=== PATIENT | male | born 1970 | race Caucasian/White ===

== ENCOUNTER 2023-04-10 12:12 | Outpatient (OUT) | payer MEDICARE, OTHER, SELFPAY ==
[2023-04-10 16:16] LABS: Albumin Level 3.2 g/dL (3.4-5.0); Anion Gap 11.4; BUN Creatinine Ratio 14.3; Calcium 8.9 mg/dL (8.5-10.1); Carbon Dioxide 28.5 mmol/L (21.0-32.0); Chloride 102 mmol/L (98-107); Estimated GFR (African America 39 (>=60); Estimated GFR (Non-African Ame 32 (>=60); Glucose 428 mg/dL (74-106); Magnesium 2.1 mg/dL (1.8-2.4); Phosphorus 4.4 mg/dL (2.6-4.7); Potassium 3.9 mmol/L (3.5-5.1); Sodium 138 mmol/L (136-145); Uric Acid 6.5 mg/dL (3.5-7.2)
[2023-04-10 16:19] LABS: Creatinine Urine Random 26.44 mg/dL (20.00-300.00); Protein Creatinine Ratio Urine 17.61; Total Protein Urine Random 465.6 mg/dL (<=11.9)
[2023-04-10 17:47] LABS: Hematocrit 38.7 % (42.0-54.0); Hemoglobin 12.6 g/dL (14.0-18.0); Mean Corpuscular HGB Conc 32.6 g/dL (29.9-35.2); Mean Corpuscular Hemoglobin 29.4 pg (25.9-34.0); Mean Corpuscular Volume 90.4 fL (80.0-94.0); Mean Platelet Volume 12.6 fL (9.5-13.5); Platelet Count 214 10^3/uL (150-450); Red Blood Count 4.28 10^6/uL (4.70-6.10); Red Cell Distribution Width 14.6 % (11.0-15.0); White Blood Count 9.4 10^3/uL (4.0-11.0)
[2023-04-12 10:09] LABS: PTH, Intact 126 pg/mL (15-65)
[2023-04-12 14:09] LABS: Free Kappa Lt Chains,S 52.5 mg/L (3.3-19.4); Free Lambda Lt Chains,S 27.1 mg/L (5.7-26.3); Immunoglobulin A, Qn, Serum 149 mg/dL (90-386); Immunoglobulin G, Qn, Serum 553 mg/dL (603-1613); Immunoglobulin M, Qn, Serum 37 mg/dL (20-172); Kappa/Lambda Ratio,S 1.94 (0.26-1.65)
[2023-04-15 15:09] LABS: Immunofixation, Urine Comment: (.)
== END 2023-04-10 12:13 | disposition home or self-care (01) ==
LOC: LAB 12:18
PROVIDERS: Internal Medicine; PCP Family Medicine
DX: E11.22 Type 2 diabetes mellitus with diabetic chronic kidney disease (principal); N18.4 Chronic kidney disease, stage 4 (severe); I12.9 Hypertensive chronic kidney disease with stage 1 through stage 4 chronic kidney disease, or unspecified chronic kidney disease; D63.1 Anemia in chronic kidney disease; N25.81 Secondary hyperparathyroidism of renal origin
CPT/HCPCS: 36415; 80069; 82306; 82570; 82607; 82728; 82746; 82784; 83735; 83970; 84156; 84166; 84550; 85027; 86334; 86335

== ENCOUNTER 2023-04-15 14:12 | Emergency (ER) | payer MEDICARE, SELFPAY ==
[2023-04-15] VITALS (37 sets, daily range): BP systolic 77–156; BP diastolic 53–115; PULSE 51–88; RESP 4–22; TEMP 37.3; O2SAT 84–100; BMI 38.7
--- NOTE | 2023-04-15 14:23 | ED.CHESTPAI1 ---
HPI - Chest Pain General Chief Complaint: Chest Pain Stated Complaint: CHEST PAIN/HEADACHE/ RIGHT ARM NUMBNESS Time Seen by Provider: 04/15/23 14:18 Source: patient Mode of arrival: Wheelchair Limitations: physical limitation History of Present Illness HPI narrative: this patient came to the emergency room from his private home with complaint of headache and chest discomfort. He says each one is equally bothersome. He was just here in the hospital recently and treated for congestive heart failure. He states that he has had a heart catheterization within one year or so and that he has one small vessel that they were not able to do any intervention for. He does not have any nausea or vomiting or diaphoresis. He states he took some Tylenol at home for the headache. He is not running a fever. He's not had head trauma or injury. He does not have any focal neurological symptoms or deficits of these aware of. He did not take a nitroglycerin today. he also states that his kidney doctor recommended increasing his diuretics which she's done for several weeks. He notes that he lost a lot of weight and he does not have any swelling in his one remaining leg. Related Data Home Medications Medication Instructions Recorded Confirmed Unobtainable 04/15/23 04/15/23 Allergies Allergy/AdvReac Type Severity Reaction Status Date / Time promethazine [From Phenergan] AdvReac Mild Verified 04/15/23 14:24 Exam Narrative Exam Narrative: awake alert reasonable historian, seems anxious. Vital signs as noted are good. HEENT. Head and neck are atraumatic and normocephalic. There is no evidence of pallor or anemia. Hearing is grossly intact. I examination shows extraocular muscles intact no conjunctivitis. Chest does not show any tenderness to palpation. There is no subtendinous emphysema. Respiratory lungs are clear scattered rhonchi but no wheezing. Heart rate and rhythm are normal no S3-S4 or murmur. Gastrointestinal abdomen is obese does not have any peritoneal findings guarding rebound or rigidity. Psych cognition is normal mentation is normal maintains good eye contact and is a good historian. Constitutional Vital Signs - 24 hr 04/15/23 14:18 04/15/23 14:20 04/15/23 14:21 Temperature 99.2 F Pulse Rate 88 87 Pulse Rate [Monitor] 88 Respiratory Rate 18 15 15 Blood Pressure 105/86 H Blood Pressure [Right Arm] 106/55 L Pulse Oximetry 99 99 04/15/23 14:21 04/15/23 14:21 04/15/23 14:30 Temperature Pulse Rate 88 87 83 Pulse Rate [Monitor] Respiratory Rate 22 19 12 Blood Pressure 105/86 H 112/75 Blood Pressure [Right Arm] Pulse Oximetry 100 88 L 04/15/23 14:45 04/15/23 15:00 04/15/23 15:15 Temperature Pulse Rate 82 81 80 Pulse Rate [Monitor] Respiratory Rate 8 L 7 L 12 Blood Pressure 110/62 94/63 95/58 L Blood Pressure [Right Arm] Pulse Oximetry 84 L 92 L 93 L 04/15/23 15:30 04/15/23 15:30 04/15/23 15:45 Temperature Pulse Rate 80 79 79 Pulse Rate [Monitor] Respiratory Rate 9 L 6 L 11 L Blood Pressure 84/57 L 84/57 L 87/58 L Blood Pressure [Right Arm] Pulse Oximetry 92 L 87 L 04/15/23 16:00 04/15/23 16:15 04/15/23 16:30 Temperature Pulse Rate 79 79 80 Pulse Rate [Monitor] Respiratory Rate 14 16 15 Blood Pressure 92/64 112/64 131/72 H Blood Pressure [Right Arm] Pulse Oximetry 91 L 88 L 91 L 04/15/23 16:45 04/15/23 17:00 04/15/23 17:16 Temperature Pulse Rate 80 79 79 Pulse Rate [Monitor] Respiratory Rate 16 Blood Pressure 129/84 H 118/67 97/53 L Blood Pressure [Right Arm] Pulse Oximetry 94 L 95 Course Vital Signs Vital signs: Vital Signs Temperature 99.2 F 04/15/23 14:18 Pulse Rate 88 04/15/23 14:18 Respiratory Rate 18 04/15/23 14:18 Blood Pressure 106/55 L 04/15/23 14:18 Pulse Oximetry 99 04/15/23 14:18 Temperature 99.2 F 04/15/23 14:18 Pulse Rate 79 04/15/23 17:16 Respiratory Rate 16 04/15/23 16:45 Blood Pressure 97/53 L 04/15/23 17:16 Pulse Oximetry 95 04/15/23 17:16 MDM - Chest Pain MDM Narrative Medical decision making narrative: this patient presents with significant deterioration of his BUN/creatinine laboratory function testing over the last several days. 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 His chest x-ray did not show evidence of acute failure. His sugar today is better than it has been recently. 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 I spoke with the hospitalist in [place] and they've accepted transfer of the case. His vital signs are stable at the time of this discussion Lab Data Labs: Lab Results 04/15/23 Range/Units 14:31 WBC 9.5 (4.0-11.0) 10^3/uL RBC 4.62 L (4.70-6.10) 10^6/uL Hgb 13.7 L (14.0-18.0) g/dL Hct 40.9 L (42.0-54.0) % MCV 88.5 (80.0-94.0) fL MCH 29.7 (25.9-34.0) pg MCHC 33.5 (29.9-35.2) g/dL RDW 15.0 (11.0-15.0) % Plt Count 248 (150-450) 10^3/uL MPV 11.6 (9.5-13.5) fL Neut % (Auto) 76.1 H (43.0-75.0) % Lymph % (Auto) 13.9 L (20.5-60.0) % Motley % (Auto) 6.8 (1.7-12.0) % Eos % (Auto) 2.5 (0.9-7.0) % Baso % (Auto) 0.3 (0.2-2.0) % Neut # (Auto) 7.2 H (1.4-6.5) 10^3/uL Lymph # (Auto) 1.3 (1.2-3.8) 10^3/uL Motley # (Auto) 0.7 (0.3-0.8) 10^3/uL Eos # (Auto) 0.2 (0.0-0.7) 10^3/uL Baso # (Auto) 0.0 (0.0-0.1) 10^3/uL Abs Immat Gran (auto) 0.04 H (0.00-0.03) 10^3/uL Imm/Tot Granulo (auto) 0.4 (0.0-0.5) % Sodium 135 L (136-145) mmol/L Potassium 3.5 (3.5-5.1) mmol/L Chloride 97 L (98-107) mmol/L Carbon Dioxide 29.3 (21.0-32.0) mmol/L Anion Gap 12.2 BUN 54.0 H (7.0-18.0) mg/dL Creatinine 3.26 H (0.70-1.30) mg/dL Est GFR ( Amer) 24 L (>=60) Est GFR (Non-Af Amer) 20 L (>=60) BUN/Creatinine Ratio 16.6 Glucose 186 H (74-106) mg/dL Calcium 8.8 (8.5-10.1) mg/dL Total Bilirubin 0.5 (0.2-1.0) mg/dL AST 24 (15-37) U/L ALT 21 (16-63) U/L Alkaline Phosphatase 101 (46-116) U/L Troponin I High Sens 68.7 (4.0-76.1) pg/mL NT-Pro-B Natriuret Pep 1993.0 H* (<=900.0) pg/mL Total Protein 6.7 (6.4-8.2) g/dL Albumin 3.1 L (3.4-5.0) g/dL Globulin 3.6 g/dL Albumin/Globulin Ratio 0.9 Discharge Plan Discharge Chief Complaint: Chest Pain Clinical Impression: Acute renal failure Patient Disposition: [facility] Time of Disposition Decision: 17:29 Discharge Location: [facility] Condition: Fair Mode of Transportation: EMS
--- NOTE | 2023-04-15 14:29 | XR_ITS ---
The [address] [address] Patient Name: KURTIS CHOUDHURY MRN: [id number] date: 1970 Sex: M Assigned Patient Location: ER Current Patient Location: ER Accession/Order Number: [id number] Exam Date: 04/15/2023 14:35 Report Date: 04/15/2023 14:51 At the request of: COLLIN REINA Procedure: XR chest 1V EXAMINATION: XR chest 1V HISTORY: pain ; chest pain COMPARISON: No relevant comparison available. FINDINGS: LUNGS: No significant pulmonary parenchymal abnormalities. VASCULATURE: No increased pulmonary vasculature. PLEURA: No pneumothorax, effusion, or pleural thickening. CARDIAC: No cardiomegaly or cardiac silhouette abnormality. MEDIASTINUM: No visible mass or adenopathy. BONES: Degenerative changes of the acromioclavicular joints with undersurface osteophytes bilaterally. OTHER: Negative. IMPRESSION: 1. No acute cardiopulmonary process. 2. Prominent degenerative changes of the acromioclavicular joints bilaterally which would predispose to rotator cuff injury. Electronically authenticated by: MURRAY YEBOAH Date: 04/15/2023 14:51
--- NOTE | 2023-04-15 14:29 | ECG_ITS ---
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
[2023-04-15 14:41] LABS: Basophils Percent Auto 0.3 % (0.2-2.0); Eosinophils Absolute Auto 0.2 10^3/uL (0.0-0.7); Eosinophils Percent Auto 2.5 % (0.9-7.0); Hematocrit 40.9 % (42.0-54.0); Hemoglobin 13.7 g/dL (14.0-18.0); Immature Granulocytes Abs Auto 0.04 10^3/uL (0.00-0.03); Immature Granulocytes Pct Auto 0.4 % (0.0-0.5); Lymphocytes Absolute Auto 1.3 10^3/uL (1.2-3.8); Lymphocytes Percent Auto 13.9 % (20.5-60.0); Mean Corpuscular HGB Conc 33.5 g/dL (29.9-35.2); Mean Corpuscular Hemoglobin 29.7 pg (25.9-34.0); Mean Corpuscular Volume 88.5 fL (80.0-94.0); Mean Platelet Volume 11.6 fL (9.5-13.5); Monocytes Absolute Auto 0.7 10^3/uL (0.3-0.8); Monocytes Percent Auto 6.8 % (1.7-12.0); Neutrophils Absolute Auto 7.2 10^3/uL (1.4-6.5); Neutrophils Percent Auto 76.1 % (43.0-75.0); Platelet Count 248 10^3/uL (150-450); Red Blood Count 4.62 10^6/uL (4.70-6.10); White Blood Count 9.5 10^3/uL (4.0-11.0)
[2023-04-15] MEDS: MORPHINE SULFATE 2 MG/ML SYRINGE IV (14:47)
[2023-04-15 14:58] LABS: Alanine Aminotransferase 21 U/L (16-63); Albumin Globulin Ratio 0.9; Albumin Level 3.1 g/dL (3.4-5.0); Alkaline Phosphatase 101 U/L (46-116); Anion Gap 12.2; Aspartate Amino Transferase 24 U/L (15-37); BUN Creatinine Ratio 16.6; Bilirubin Total 0.5 mg/dL (0.2-1.0); Calcium 8.8 mg/dL (8.5-10.1); Carbon Dioxide 29.3 mmol/L (21.0-32.0); Chloride 97 mmol/L (98-107); Estimated GFR (African America 24 (>=60); Estimated GFR (Non-African Ame 20 (>=60); Globulin 3.6 g/dL; Glucose 186 mg/dL (74-106); Potassium 3.5 mmol/L (3.5-5.1); Sodium 135 mmol/L (136-145); Total Protein 6.7 g/dL (6.4-8.2)
[2023-04-15 15:04] LABS: Troponin I High Sensitivity 68.7 pg/mL (4.0-76.1)
[2023-04-15 18:37] LABS: Troponin I High Sensitivity 60.6 pg/mL (4.0-76.1)
[2023-04-15] MEDS: 0.9 % SODIUM CHLORIDE 500 ML 100 ML IV (18:50)
[2023-04-15] MEDS: ONDANSETRON PF 4 MG/2 ML VIAL IV (20:02)
[2023-04-15] MEDS: ALPRAZOLAM 0.5 MG TABLET PO (20:02)
== END 2023-04-15 21:52 | disposition short-term general hospital (02) ==
PROVIDERS: Emergency Provider Emergency Medicine Emergency Medical Services; PCP Family Medicine
DX: N17.9 Acute kidney failure, unspecified (principal); I50.9 Heart failure, unspecified; E66.9 Obesity, unspecified; Z68.38 Body mass index [BMI] 38.0-38.9, adult
CPT/HCPCS: 36415; 71045; 80053; 83880; 84484; 85025; 93005; 96374; 96375; 99285

== ENCOUNTER 2023-05-21 16:06 | Emergency (ER) | payer MEDICARE, SELFPAY ==
[2023-05-21 16:10] VITALS: BP 142/90; PULSE 79; RESP 20; TEMP 37.2; O2SAT 96; BMI 40.4
--- NOTE | 2023-05-21 16:19 | XR_ITS ---
The [address] [address] Patient Name: KURTIS CHOUDHURY MRN: [id number] date: 1970 Sex: M Assigned Patient Location: ER Current Patient Location: ER Accession/Order Number: [id number] Exam Date: 05/21/2023 16:45 Report Date: 05/21/2023 17:14 At the request of: NOEL RODRIGUEZ Procedure: XR lumbar spine 2-3V EXAM: XR lumbar spine 2-3V HISTORY: Back pain after stepping firewood COMPARISON: None. TECHNIQUE: 2 views FINDINGS: Maintenance of the normal lumbar lordosis.. Vertebral body heights and alignments exhibit no fracture or listhesis. Age-related intervertebral disc space narrowing, endplate and facet arthrosis. Sacroiliac joints are unremarkable for patient's age. XR/XR lumbar spine 2-3V IMPRESSION: No visualized acute abnormality. Electronically authenticated by: CONSTANTIN VERA Date: 05/21/2023 17:14
--- NOTE | 2023-05-21 16:24 | ED.BACK1 ---
HPI - Back Pain/Injury General Chief Complaint: Back Pain/Injury Stated Complaint: BACK PAIN Time Seen by Provider: 05/21/23 16:12 Source: patient Mode of arrival: Wheelchair History of Present Illness HPI Narrative: patient is a 52-year-old male who presents to the emergency department with his for the evaluation of low back pain after lifting firewood four days ago at home. Patient states he has had pain across the low back that is worse with walking. 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 He has had no urinary symptoms or incontinence. No medications prior to arrival. He denies any falls or direct injury to the low back. Related Data Home Medications Medication Instructions Recorded Confirmed amlodipine 10 mg tablet 10 mg PO QDAY 04/15/23 04/15/23 bumetanide 1 mg tablet 1 mg PO QDAY 04/15/23 04/15/23 losartan 100 mg tablet 100 mg PO QDAY 04/15/23 04/15/23 metolazone 2.5 mg tablet 2.5 mg PO .3 times week 04/15/23 04/15/23 Previous Rx's Medication Instructions Recorded hydrocodone 5 mg-acetaminophen 325 1 tab PO Q6H PRN pain #8 tabs 05/21/23 mg tablet methocarbamol 750 mg tablet 750 mg PO TID PRN pain #20 tabs 05/21/23 Allergies Allergy/AdvReac Type Severity Reaction Status Date / Time promethazine [From Phenergan] AdvReac Mild Verified 05/21/23 16:15 Review of Systems ROS Constitutional Denies: fever or chills Ears, nose, mouth, and throat Denies: throat pain Cardiovascular Denies: chest pain Respiratory Denies: shortness of breath or cough Gastrointestinal Denies: abdominal pain, nausea or vomiting Genitourinary Denies: painful urination Musculoskeletal Reports: back pain; Denies: neck pain or extremity pain Integumentary/Breast Denies: rash Hematologic/Lymphatic Denies: easy bruising Exam Narrative Exam Narrative: Gen.: Awake, alert, in no distress Head: Normocephalic, atraumatic ENT: Moist mucous membranes Respiratory: No respiratory distress Back: minimal diffuse tenderness of the lumbar spine with moderate tenderness of the left paraspinal muscles of the lumbar spine, no CVA tenderness. mild tenderness of the paraspinal muscles of the right lumbar spine. Extremities: right [id number] amputation with prosthetic in place. Normal dorsiflexion and plantarflexion of the left lower extremity, no decrease in sensation to the left medial thigh Psych: Normal mood and affect Neuro: No focal neuro deficit Skin: Warm, dry, intact Constitutional Vital Signs, click to edit/add: Last Vital Signs Temp 99.0 F 05/21/23 16:10 Pulse 79 05/21/23 16:10 Resp 20 05/21/23 16:10 BP 142/90 H 05/21/23 16:10 Pulse Ox 96 05/21/23 16:10 Course Vital Signs Vital signs: Vital Signs Temperature 99.0 F 05/21/23 16:10 Pulse Rate 79 05/21/23 16:10 Respiratory Rate 20 05/21/23 16:10 Blood Pressure 142/90 H 05/21/23 16:10 Pulse Oximetry 96 05/21/23 16:10 Temperature 99.0 F 05/21/23 16:10 Pulse Rate 79 05/21/23 16:10 Respiratory Rate 20 05/21/23 16:10 Blood Pressure 142/90 H 05/21/23 16:10 Pulse Oximetry 96 05/21/23 16:10 MDM - Back Pain/Injury MDM Narrative Medical decision making narrative: x-rays with no evidence of acute process. Patient treated in the Emergency Room with pain medication and muscle relaxants and will be discharged home with the same. He is neurovascularly intact, no focal neuro deficit at this time. Medical Records Attestation: I reviewed the patient's medical records. Imaging Data xr lumbar spine: Attestation: I have reviewed the pertinent imaging results. Radiologist's impression: Procedure: XR lumbar spine 2-3V EXAM: XR lumbar spine 2-3V HISTORY: Back pain after stepping firewood COMPARISON: None. TECHNIQUE: 2 views FINDINGS: Maintenance of the normal lumbar lordosis.. Vertebral body heights and alignments exhibit no fracture or listhesis. Age-related intervertebral disc space narrowing, endplate and facet arthrosis. Sacroiliac joints are unremarkable for patient's age. IMPRESSION: No visualized acute abnormality. Electronically authenticated by: CONSTANTIN VERA Date: 05/21/2023 17:14 Discharge Plan Discharge Chief Complaint: Back Pain/Injury Clinical Impression: Strain of lumbar region Patient Disposition: Home, Self-Care Time of Disposition Decision: 17:34 Condition: Good Prescriptions / Home Meds: New hydrocodone-acetaminophen 5-325 mg tablet 1 tab PO Q6H PRN (Reason: pain) Qty: 8 0RF Rx Instructions: DX: M54.5 methocarbamol 750 mg tablet 750 mg PO TID PRN (Reason: pain) Qty: 20 0RF No Action bumetanide 1 mg tablet 1 mg PO QDAY metolazone 2.5 mg tablet 2.5 mg PO .3 times week Rx Instructions: Take 1 tablet by mouth 3 times a week, Saturday, Saturday, and Saturday amlodipine 10 mg tablet 10 mg PO QDAY losartan 100 mg tablet 100 mg PO QDAY Instructions: Low Back Strain (ED), Back Pain (ED) Stand Alone Forms: Portal Instructions Referrals: DONITA TENORIO [Primary Care Provider] - 1 week
[2023-05-21] MEDS: HYDROCODONE/ACETAMINOPHEN 5-325 MG TABLET 1 TAB PO (16:36)
[2023-05-21] MEDS: ORPHENADRINE 60 MG/ 2 ML VIAL IM (16:36)
== END 2023-05-21 17:52 | disposition home or self-care (01) ==
PROVIDERS: Emergency Provider Emergency Medicine; PCP Family Medicine
DX: S39.012A Strain of muscle, fascia and tendon of lower back, initial encounter (principal); X50.9XXA Other and unspecified overexertion or strenuous movements or postures, initial encounter; Z89.611 Acquired absence of right leg above knee; Z79.899 Other long term (current) drug therapy; G62.9 Polyneuropathy, unspecified
CPT/HCPCS: 72100; 96372; 99284

== ENCOUNTER 2023-09-20 08:57 | Outpatient (OUT) | payer MEDICARE, SELFPAY ==
--- NOTE | 2023-09-20 | XR_ITS ---
The [address] [address] Patient Name: KURTIS CHOUDHURY MRN: [id number] date: 1970 Sex: M Assigned Patient Location: Current Patient Location: Accession/Order Number: [id number] Exam Date: 09/20/2023 09:04 Report Date: 09/20/2023 09:54 At the request of: CLIVE RICO Procedure: XR foot LT min 3V PROCEDURE: XR foot LT min 3V COMPARISON: 03/06/21 HISTORY: LEFT FOOT PAIN FINDINGS: BONES:No fracture, acute abnormality, or significant arthropathy.Mild calcaneal enthesopathic spurring SOFT TISSUES:Negative. No visible soft tissue swelling. EFFUSION:None visible. OTHER: Negative. XR/XR foot LT min 3V IMPRESSION: Mild degenerative changes Electronically authenticated by: CONSTANTIN FLORES Date: 09/20/2023 09:54
== END 2023-09-20 08:58 | disposition home or self-care (01) ==
LOC: WC 08:57
PROVIDERS: PCP Family Medicine; Visit Provider Podiatrist Foot & Ankle Surgery
DX: E11.621 Type 2 diabetes mellitus with foot ulcer (principal); L97.422 Non-pressure chronic ulcer of left heel and midfoot with fat layer exposed
CPT/HCPCS: 11042; 73630; G0463

== ENCOUNTER 2023-10-23 13:24 | Outpatient (OUT) | payer MEDICARE, SELFPAY ==
--- OUTSIDE RECORDS SUMMARY | 2023-10-23 13:38 | XMS_ITS | CCD ---
Author Name Unknown Address [address] [place] [address] Organization [facility] Care Team Providers Care Tripe Cooker Name Role Phone Fatoumata Tirado Admitting Unavailable Fatoumata Tirado Attending Unavailable Fatoumata Tirado H. Referring Unavailable Fadi Tenorio Primary Care Unavailable Fatoumata Tirado HCirilo Admitting Unavailable Fatoumata Tirado Attending Unavailable Fatoumata Tirado H. Referring Unavailable House, Fadi Primary Care Unavailable House, Sr Fadi Neves Primary Care Provider HOUSE, SR FADI Neves Primary Care Unavailable PHUC, LLEOWELL Consulting Unavailable CHATHA, KAISER Admitting Unavailable CHATHA, KAISER Attending Unavailable ABBUD, KASHMIR A Consulting Unavailable PHUC, LLEOWELL Referring Unavailable HOUSE, SR FADI Neves Primary Care Unavailable PHUC, LLEOWELL Referring Unavailable HOUSE, SR FADI Neves Primary Care Unavailable PHUC, LLEOWELL Admitting Unavailable PHUC, LLEOWELL Attending Unavailable Coby, DO Fadi Primary Care Provider DO Mario Phillips Emergency Provider MD Jonn Wallace Admit Provider MD Jonn Wallace Attending Provider [phone] DO Fadi Tenorio Primary Care Provider DO Mario Phillips Emergency Provider MD Jonn Wallace Admit Provider MD Jonn Wallace Attending Provider [phone] TANYA Mittal Other Provider Unavailable DO Leann Sarmiento Other Provider MD Madeline Valdez Other Provider MD Jaylen Brooks Other Provider MD Eduin Johnson Other Provider MD Fadi Howard Other Provider HUMBERTO Terrazas Other Provider MD Leticia Da Silva Other Provider MD Manuel Strong Other Provider MD Malik Hernandez Other Provider Fadi Tenorio Unavailable Unavailable Unavailable TANYA Mittal Other Provider Unavailable DO Leann Sarmiento Other Provider MD Madeline Valdez Other Provider MD Jaylen Brooks Other Provider MD Eduin Johnson Other Provider MD Fadi Howard Other Provider HUMBERTO Terrazas Other Provider MD Leticia Da Silva Other Provider MD Manuel Strong Other Provider MD Malik Hernandez Other Provider HUMBERTO Das Attending Provider Shahla FLAHERTY, Rober Unavailable Bulmaro FLAHERTY, Raul Unavailable Agustin Hampton MD Unavailable Unavailable Unavailable Hunter Plaza Unavailable Mika Das Unavailable Nury Martin Unavailable Yovany, Agus Unavailable Jazzmine Dukes Unavailable DO Fadi Tenorio Primary Care Provider HUMBERTO Dasmaria teresa Baez Attending Provider Elayne DO Sinan Wilkes Emergency Provider Unavailable Primary Care Provider UnavailVJ Gomez II Attending Unavaildixon Lopes MD, Rober Unavailable Bulmaro FLAHERTY, Raul Unavailable Berta FLAHERTY, Agustin Unavailable Vivian FLAHERTY, Demetri Unavailable Shahla FLAHERTY, Rober Unavailable Bulmaro FLAHERTY, Raul Unavailable Berta FLAHERTY, Agustin Unavailable Vivian FLAHERTY, Demetri Unavailable [phone] Vivian FLAHERTY, Demetri Unavailable Unavailable Unavailable DR MURRAY YEBOAH Consulting Unavailable RODERICK ., ALDO Admitting Unavailable RODERICK ., ALDO Attending Unavailable [place], DR DUCKWORTH Primary Care Unavailable SERA ., DR SHERMAN Consulting Unavailable FAWWAD, SHAIKH Amada Consulting Unavailable DANDY, ANIBAL Consulting Unavailable LAZ, LOTTIE Consulting Unavailable SISTER, JESSICA Consulting Unavailable RODERICK ., ALDO Consulting Unavailable NEWATIA, SAMANTHA Consulting Unavailable BARAZI, TONY Consulting Unavailable FEIDERJUAN LUIS Consulting Unavailable COBY, DR DUCKWORTH Primary Care Unavailable [place], DR DUCKWORTH Admitting Unavailable HOUSE, DR DUCKWORTH Attending Unavailable [place], DR DUCKWORTH Consulting Unavailable COBY, DR DUCKWORTH Primary Care Unavailable NBA COBOS Admitting Unavailable NBA COBOS Attending Unavailable JENNIFER ., FÁTIMA COHEN Consulting UnavailLISA Matute Consulting Unavailable CLIVE HOLLAND Consulting Unavailable COBY, DR DUCKWORTH Primary Care Unavailable GRAY, DR KEVON Anderson Attending Unavailable GRAY, DR KEVON Anderson Consulting Unavailable GRAY, DR KEVON Anderson Admitting Unavailable JENNIFER ., FÁTIMA COHEN Consulting UnavailNBA Spears Consulting Unavailable SHRUTI HANCOCK Consulting Unavailable CHULA MALHOTRA Consulting Unavailable Eliud Prado Unavailable DO Fadi Tenorio Primary Care Provider [phone] DO Kameron Dos Santos Attending Provider DO Albert Woods Admit Provider MD [employer] Other Provider Vivian FLAHERTY, Demetri Unavailable DO Christopher Santiago Emergency Provider None, DO Doctor Primary Care Provider UnavailDO Chava Veras Attending Provider MD Helen Jovel Admit Provider [phone] MD Helen Jovel Attending Provider MD Radha Bell Other Provider [phone] MD Kan Granger Other Provider MD Jose Maria Lopez Other Provider MD Geovani Hebert Other Provider MD Elvin Lyles Other Provider DO Manda Scott Other Provider [phone] MD Marcelino Abel Other Provider MD Steve Block Other Provider MD Agus Morrison Other Provider MD Harjeet Ruelas Attending Provider [phone] Marcelino Abel Attending Unavailable Radha Bell Consulting Unavailable Helen Jovel Admitting Unavailable Kan Granger Consulting Unavailable Jose Maria Lopez Consulting Unavailable Geovani Hebert Consulting Unavailable Elvin Lyles Consulting Unavailable Manda Scott Consulting Unavailable Marcelino Abel Consulting Unavailable Steve Block Consulting Unavailable Agus Morrison Consulting Unavailable Helen Jovel Consulting Unavailable Chava Hernandez Attending Unavailable Radha Bell Consulting Unavailable Parsi, Harjeet Attending Unavailable Parsi, Harjeet Admitting Unavailable Kan Granger Consulting Unavailable NorJose Maria camacho Consulting Unavailable Hebert, Geovani Consulting Unavailable Elvin Lyles Consulting Unavailable Manda Scott Consulting Unavailable ParacMarcelino powell Consulting Unavailable Steve Block Consulting Unavailable Agus Morrison Consulting Unavailable Marina Solis Attending Unavailable Parsi, Harjeet Consulting Unavailable Parsi, Harjeet Admitting Unavailable FADI TENORIO Primary Care Unavailable COBY, FADI Neves Primary Care Unavailable Reim Iyer MD Attending Unavailable COBY, FADI Neves Primary Care Unavailable Remi Iyer MD Attending Unavailable PROVIDER, UNKNOWN Attending Unavailable PROVIDER, UNKNOWN Admitting Unavailable PROVIDER, UNKNOWN Admitting Unavailable PROVIDER, UNKNOWN Attending Unavailable PATIENT, SELF Referring Unavailable PROVIDER, UNKNOWN Attending Unavailable PROVIDER, UNKNOWN Admitting Unavailable PROVIDER, UNKNOWN Attending Unavailable PROVIDER, UNKNOWN Admitting Unavailable PROVIDER, UNKNOWN Attending Unavailable PROVIDER, UNKNOWN Admitting Unavailable Fadi Tenorio Primary Care Unavailable Mika Das Admitting Unavailable Mika Das Attending Unavailable Fadi Tenorio Primary Care Unavailable [employer] Consulting Unavailable Kameron Dos Santos Attending Unavailable Albert Woods Admitting Unavailable Allergies Allergy Classification Reported Allergen(s) Allergy Type Date of Onset Reaction(s) Facility (2 sources) Promethazine; Translations: [Phenergan] Drug Allergy 6 [facility] Repository (20 sources) Promethazine; Translations: [promethazine] Drug Allergy 6 Other: See Comments [employer] Phone: (2 sources) Promethazine Drug Allergy 2 [facility] Repository Medications Current Medications Medication Drug Class(es) Dates Sig (Normalized) Sig (Original) acetaminophen 325 mg / oxyCODONE hydrochloride 5 mg oral tablet (20 sources) Opioid Agonist Start: 12-29-2020 End: 12-29-2020 oxyCODONE-acetamin ophen (PERCOCET) 5-325 MG per tablet 1 tablet Start: 10-08-2020 take 1 tablet by jacobo th every six hours for pain oxyCODONE-acetaminophen (PERCOCET) 5-325 mg per tablet take 1 tablet by mouth every 6 hours if needed for pain FOR UP TO 7 DAYS 0 10/08/2020 Active [id number] 200 actuat albuterol 0.09 mg/actuat metered dose inhaler (20 sources) beta2-Adrenergic Agonist Start: 08-02-2023 take 1 puff(s) by inhalation every four hours Albuterol Sulfate Active 2 PUFF INHALATION Q4H August 02, 2023 12:00am Start: 04-15-2023 End: 04-17-2023 take 1 puff(s) by inhalation every four hours Albuterol Sulfate Discontinued 2 PUFF INHALATION Q4H April 15, 2023 12:00am April 17, 2023 2:35pm Start: 12-18-2019 End: 01-27-2021 albuterol (PROVENTIL) (2.5 M G/3ML) 0.083% nebulizer solution Albuterol Albuterol Sulfate Active 2.5 MG Inhalation Q4H 15 December 24, 2019 10:24am 12-24-2019 [facility] ([id number]) 0 12/24/2019 Active Start: 12-18-2019 End: 01-27-2021 take 1 puff(s) by inhalation every four hours Albuterol Sulfate (Ventolin Hfa) 90 mcg/actuation Hfa Aerosol Inhaler Discontinued 2 PUFF INHALATION Every 4 hours December 24, 2019 12:00am January 27, 2021 1:52pm take 2 puff(s) by in halation every four hours as needed Albuterol Sulfate HFA 108 (90 Base) MCG/ACT 2 puff as needed Inhalation every 4 hrs Active take 2 puff(s) by in halation every four hours as needed Albuterol Sulfate HFA 108 (90 Base) MCG/ACT 2 puff as needed Inhalation every 4 hrs Active take 2 puff(s) by in halation every four hours as needed Albuterol Sulfate HFA 108 (90 Base) MCG/ACT 2 puff as needed Inhalation every 4 hrs Active Albuterol Sulfat e HFA 108 (90 Base) MCG/ACT as directed by mouth every 4 hours as needed Active take 2 puff(s) by in halation every four hours as needed Ventolin HFA 108 (90 Base) MCG/ACT 2 puffs as needed Inhalation every 4 hrs Active amLODIPine 10 mg oral tablet (20 sources) Dihydropyridine Calcium Channel Dale Start: 07-03-2023 take 10 mg by mouth once daily Amlodipine Active 10 MG PO Daily April 15, 2023 12:00am Start: 02-23-2020 take 1 tablet by jacobo th once daily amLODIPine (NORVASC) 2.5 MG tablet TK 1 T PO QD 0 02/23/2020 Active Start: 12-24-2019 End: 01-27-2021 take 2.5 mg by mouth once daily Amlodipine Discontinue d 2.5 MG PO Daily December 24, 2019 10:24am January 27, 2021 1:52pm take 1 tablet by jacobo th every twenty-four hours amLODIPine Besylate 5 MG 1 tablet Orally Once a day Active amoxicillin 875 mg / clavulanate 125 mg oral tablet (14 sources) Penicillin-class Antibacterial Start: 10-01-2020 take 1 tablet by mouth twice daily amoxicillin-clavulanate (AUGMENTIN) 875-125 MG per tablet take 1 tablet by mouth twice a day for 14 days 0 10/01/2020 Active ascorbic acid 500 mg oral tablet (20 sources) Vitamin C Start: 08-02-2023 take 500 mg by mouth once daily Ascorbic Acid (Vitamin C) Active 500 MG ORAL DAILY August 02, 2023 12:00am Start: 01-27-2021 take 2 tablets by mo ut once daily vitamin C (ASCORBIC ACID) 500 MG tablet Indications: Proliferative diabetic retinopathy of both eyes associated with type 2 diabetes mellitus, unspecified proliferative retinopathy type (HCC) , Vitreous hemorrhage of left eye (HCC) Take 500 mg by mouth daily. 0 01/27/2021 Active Start: 01-27-2021 take 2 tablets by mo uth once daily vitamin C (ASCORBIC ACID) 500 MG tablet Indications: Proliferative diabetic retinopathy of both eyes associated with type 2 diabetes mellitus, unspecified proliferative retinopathy type (HCC) , Vitreous hemorrhage of left eye (HCC) Take 500 mg by mouth daily. 0 01/27/2021 Active Start: 01-27-2021 End: 04-15-2023 take 1 tablet by mouth once daily Ascorbic Acid (Vitamin C) (Vitamin C) 500 mg Tablet Discontinued 500 MG PO Daily August 14, 2021 12:00am April 15, 2023 11:07pm Vitamin C 500 MG Oral Capsule TAKE 1 CAPSULE Quantity: 0 Refills: 0 Ordered: 17-Jan-2022 DO Active aspirin 81 mg delayed release oral tablet (20 sources) Platelet Aggregation Inhibitor, Nonsteroidal Anti-inflammatory Drug Start: 08-02-2023 take 81 mg by mouth once daily Aspirin Active 81 MG ORAL DAILY August 02, 2023 12:00am Start: 01-27-2021 End: 04-15-2023 take 1 tablet by mouth once daily Aspirin (Children's Aspirin) 81 mg Tablet,Chewable Discontinued 81 MG PO Daily August 14, 2021 12:00am April 15, 2023 11:08pm Start: 12-30-2020 take 1 tablet by jacobo th once daily aspirin 81 MG chewable tablet Take 1 tablet by mouth daily 30 tablet 3 12/30/2020 Active Start: 12-29-2020 aspirin chewab le tablet 81 mg Start: 12-18-2019 End: 01-27-2021 take 81 mg by mouth once daily Aspirin Discontinued 81 MG PO Daily December 24, 2019 12:00am January 27, 2021 1:52pm take 1 tablet by jacobo th once daily Aspirin 81 MG 1 tablet Orally Once a day Active End: 12-29-2020 take 1 tablet by mouth once daily aspirin 325 MG tablet Take 325 mg by mouth daily 0 12/29/2020 Discontinued (Stop Taking at Discharge) atenolol 50 mg oral tablet (19 sources) beta-Adrenergic Dale Start: 12-28-2018 End: 12-24-2019 atenolol (TENORMIN) 50 mg tablet Take 50 mg by mouth. 0 12/28/2018 Active atorvastatin 80 mg oral tablet (20 sources) HMG-CoA Reductase Inhibitor Start: 08-02-2023 take 80 mg by mouth in the evening Atorvastatin Active 80 MG ORAL In the EVENING August 02, 2023 12:00am Start: 01-12-2022 End: 04-15-2023 take 80 mg by mouth once daily in the evening Atorvastatin Active 80 MG PO Every evening April 15, 2023 11:19pm Start: 01-27-2021 End: 01-12-2022 take 40 mg by mouth once daily in the evening Atorvastatin Discontinued 40 MG PO Every evening August 14, 2021 12:00am January 12, 2022 3:25pm Start: 12-29-2020 take 40 mg by mouth once daily 40 mg, Oral, NIGHTLY, First dose on Lore 12/29/20 at 2100 Start: 12-18-2019 End: 01-27-2021 atorvastatin (LIPITOR) 40 mg tablet benzonatate 100 mg oral capsule (2 sources) Non-narcotic Antitussive take 1 capsule by mouth every eight hours Benzonatate 100 MG 1 capsule as needed Orally Three times a day Active bisacodyl 10 mg rectal suppository (14 sources) Stimulant Laxative bisacodyl (Dulcolax) 10 MG suppository Dulcolax (bisacodyl) 10 mg rectal suppository Insert 1 suppository every day by rectal route. 0 Active bumetanide 2 mg oral tablet (20 sources) Loop Diuretic Start: take 2 mg by mouth twice daily before mealtime Bumetanide Active 2 MG ORAL Twice Daily Before Meals August 02, 2023 12:00am Start: 08-14-2021 End: 04-15-2023 take 1 mg by mouth twice daily Bumetanide Active 1 MG PO Twice daily April 15, 2023 11:19pm take 1 tablet by jacobo th once daily Bumetanide 1 MG Oral Tablet TAKE 1 TABLET DAILY. Quantity: 90 Refills: 3 Ordered: 07-Mar-2022 Cordell Rodriguez APRN-Aicha OVALLE Active 24 hr buPROPion hydrochloride 150 mg extended release oral tablet (20 sources) Aminoketone Start: 10-23-2020 take 1 tablet by mouth once daily in the morning buPROPion ER (WELLBUTRIN XL) 150 MG XL tablet TAKE 1 TABLET BY MOUTH EVERY DAY IN THE MORNING 0 10/23/2020 Active Start: 10-23-2020 End: 01-10-2022 take 300 mg by mouth once daily in the morning Bupropion Hcl Discontinued 300 MG PO Every morning August 14, 2021 12:00am January 10, 2022 1:41pm carvedilol 25 mg oral tablet (20 sources) alpha-Adrenergic Dale, beta-Adrenergic Dale Start: 08-02-2023 take 25 mg by mouth twice daily at mealtime Carvedilol Active 25 MG ORAL TWICE A DAY August 02, 2023 12:00am must administer with a meal/food Start: 04-17-2023 End: 04-18-2023 take 25 mg by mouth twice daily at mealtime Carvedilol Discontinued 25 MG PO Twice daily with meals April 17, 2023 2:24pm April 18, 2023 5:32pm Start: 01-27-2021 End: 04-17-2023 take 12.5 mg by mouth twice daily at mealtime Carvedilol Discontinued 12.5 MG PO Twice daily with meals August 14, 2021 12:00am April 17, 2023 2:25pm Start: 12-29-2020 take 25 mg by mouth twice daily at mealtime 25 mg, Oral, 2 TIMES DAILY, First dose on Lore 12/29/20 at 1000 Administer with food to minimize the risk of orthostatic hypotension take 2 tablets by mo uth twice daily CARvedilol (COREG) 12.5 MG tablet carvedilol 12.5 mg tablet Take 2 tablets twice a day by oral route. 0 Active cephalexin 500 mg oral capsule (14 sources) Cephalosporin Antibacterial Start: 01-31-2021 cephALEXin (KEFLEX) 500 MG capsule Indications: Proliferative diabetic retinopathy of both eyes associated with type 2 diabetes mellitus, unspecified proliferative retinopathy type (HCC) , Vitreous hemorrhage of left eye (HCC) TAKE 1 CAPSULE BY MOUTH THREE TIMES DAILY FOR 7 DAYS 0 01/31/2021 Active chlorthalidone 25 mg oral tablet (14 sources) Thiazide-like Diuretic Start: 01-01-2019 chlorthalidone (HYGROTON) 25 MG tablet Take by mouth. 0 01/01/2019 Active citalopram 20 mg oral tablet (20 sources) Serotonin Reuptake Inhibitor Start: 08-02-2023 take 20 mg by mouth once daily Citalopram Active 20 MG ORAL DAILY August 02, 2023 12:00am Start: 04-17-2023 take 20 mg by mouth once daily Citalopram Active 20 MG PO Daily April 17, 2023 12:00am Start: 08-14-2021 End: 04-15-2023 take 20 mg by mouth once daily in the morning Citalopram Active 20 MG PO Every morning August 14, 2021 10:09am Start: 10-24-2020 End: 06-21-2021 take 20 mg by mouth once daily in the morning Citalopram Discontinued 20 MG PO Every morning January 27, 2021 12:00am June 21, 2021 11:32am clindamycin 300 mg oral capsule (14 sources) Lincosamide Antibacterial Start: 02-23-2020 clindamycin (CLEOCIN) 300 MG capsule TK ONE C PO TID 0 02/23/2020 Active clopidogrel 75 mg oral tablet (20 sources) [id number] Platelet Inhibitor Start: 12-18-2019 End: 04-15-2023 take 1 tablet by mouth once daily clopidogrel (PLAVIX) 75 MG tablet TK 1 T PO QD 0 02/23/2020 Active collagenase 0.25 unt/mg topical ointment (1 source) Collagen-specific Enzyme collagenase (SANTYL) 250 UNIT/GM ointment Apply topically daily Apply topically to incision on Saturday, Saturday, Saturday. 0 Active cyclobenzaprine hydrochloride 5 mg oral tablet (20 sources) Muscle Relaxant Start: 08-14-2021 End: 04-15-2023 take 5 mg by mouth every eight hours Cyclobenzaprine Active 5 MG PO Q8H 60 August 14, 2021 10:09am take 1 tablet by jacobo th three times daily as needed for muscle spasms Cyclobenzaprine HCl 5 MG 1 tablet Orally three times daily as needed for muscle spasms for 30 days Active cyproheptadine hydrochloride 4 mg oral tablet (20 sources) Start: 10-23-2020 cyproheptadine (PERIACTIN) 4 MG tablet DAPTOmycin 500 mg injection (15 sources) Lipopeptide Antibacterial daptomycin (CUBICIN) 500 MG injection Indications: Proliferative diabetic retinopathy of both eyes associated with type 2 diabetes mellitus, unspecified proliferative retinopathy type (HCC) , Vitreous hemorrhage of left eye (HCC) 850 mg. 0 Active inject 850 mg intrav enous route once daily DAPTOmycin (CUBICIN) 500 MG injection Infuse 850 mg intravenously daily 0 Active DAPTOmycin (CUBICIN) 850 mg in sodium chloride 0.9 % 50 mL IVPB (1 source) Start: 12-28-2020 End: 12-31-2020 DAPTOmycin (CUBICIN) 850 mg in sodium chloride 0.9 % 50 mL IVPB Doxazosin (2 sources) alpha-Adrenergic Dale Start: 12-29-2020 take 2.5 mg by mouth once daily 2.5 mg, Oral, NIGHTLY, First dose on Lore 12/29/20 at 2100 take 2.5 mg by mouth once daily doxazosin (CARDURA) 1 MG tablet Take 2.5 mg by mouth nightly For HTN 0 Active doxycycline hyclate 100 mg oral capsule (20 sources) Tetracycline-class Drug Start: 10-01-2020 take 1 capsule by mouth once daily doxycycline (VIBRAMYCIN) 100 MG capsule Take 100 mg by mouth daily. 0 10/01/2020 Active take 1 tablet by mouth twice jono ly doxycycline (ADOXA) 100 MG tablet doxycycline monohydrate 100 mg tablet Take 1 tablet twice a day by oral route. 0 Active empagliflozin 10 mg oral tablet (15 sources) Sodium-Glucose Cotransporter 2 Inhibitor Start: 08-02-2023 take 1 tablet by mouth once daily Empagliflozin (Jardiance) 10 mg Tablet Active 10 MG ORAL DAILY August 02, 2023 12:00am Start: 05-16-2022 take 1 tablet by jacobo once daily Empagliflozin (Jardiance) 10 mg tablet Active 10 MG PO Daily April 17, 2023 12:00am 1 ml erenumab-aooe 70 mg/ml auto-injector (14 sources) Start: 12-26-2018 Erenumab-aooe (AIMOVIG) 70 MG/ML SOAJ Inject into the muscle every 30 days. 0 12/26/2018 Active ergocalciferol 1.25 mg oral capsule (6 sources) Provitamin D2 Compound Start: 04-11-2023 Ergocalciferol (Molly min D2) (Vitamin D2) 1,250 mcg (50,000 unit) Capsule Active 46351 UNIT ORAL Every Week August 02, 2023 12:00am Start: 04-11-2023 take 1 capsule by [facility] every week Ergocalciferol 1.25 MG (32985 UT) 1 capsule Orally Q week for 90 days Mar, Active erythromycin 0.005 mg/mg ophthalmic ointment (6 sources) Macrolide, Macrolide Antimicrobial Start: 01-01-2023 erythromycin (ROMYCI N) 5 MG/GM ophthalmic ointment Place 0.5 Inches in both eyes 4 times daily. 3.5 g 0 01/01/2023 Active escitalopram 5 mg oral tablet (20 sources) Serotonin Reuptake Inhibitor Start: 01-27-2021 End: 08-14-2021 escitalopram (LEXAPRO) 5 MG tablet Indications: Proliferative diabetic retinopathy of both eyes associated with type 2 diabetes mellitus, unspecified proliferative retinopathy type (HCC) , Vitreous hemorrhage of left eye (HCC) Take 5 mg by mouth daily. 0 01/27/2021 Active Start: 12-29-2020 take 5 mg by mouth once daily 5 mg, Oral, DAILY, First dose on Lore 12/29/20 at 1000 fludrocortisone acetate 0.1 mg oral tablet (20 sources) Start: 12-18-2019 End: 08-14-2021 take 1 tablet by mouth twice daily fludrocortisone (FLORINEF) 0.1 MG tablet TK 1 T PO BID 0 02/23/2020 Active take 1 tablet by jacobo th three times weekly Fludrocortisone Acetate 0.1 MG 1 tablet Orally Three times a Week Active fluticasone propionate 0.05 mg/actuat metered dose nasal spray (11 sources) Corticosteroid Start: 08-02-2023 take 1 spray(s) nasal route once daily Fluticasone Propionate Active 2 SPRAY NASAL DAILY August 02, 2023 12:00am administer into each nostril Start: 04-17-2023 Fluticasone Pr opionate Active 2 SPRAY INTRANASAL Every morning April 17, 2023 12:00am take 1 spray(s) nasa l route once daily Fluticasone Propionate 50 MCG/ACT 1 spray in each nostril Nasally Once a day Active take 1 spray(s) nasa l route once daily Fluticasone Propionate 50 MCG/ACT 1 spray in each nostril Nasally Once a day Active Fluticasone Prop ionate Active 60 actuat fluticasone propionate 0.055 mg/actuat / salmeterol xinafoate 0.014 mg/actuat dry powder inhaler (20 sources) Corticosteroid, beta2-Adrenergic Agonist Start: 12-24-2019 Fluticasone-Salmeterol 55-14 MCG/ACT AEPB fluticasone / salmeterol Fluticasone Propion-Salmeterol Active 1 PUFF Inhalation Twice daily 60 December 24, 2019 10:24am 12-24-2019 [facility] ([id number]) 0 12/24/2019 Active Start: 12-24-2019 End: 01-27-2021 take 1 puff(s) by inhalation twice daily Fluticasone Propion-Salmeterol Discontinued 1 PUFF INHALATION Twice daily 60 December 24, 2019 10:24am January 27, 2021 1:52pm Start: 12-18-2019 End: 12-24-2019 take 1 puff(s) by inhalation twice daily Fluticasone Propion-Salmeterol (Advair Diskus) 100-50 mcg/dose Blister With Device Discontinued 1 PUFF INHALATION Twice daily December 18, 2019 10:58pm December 24, 2019 5:24pm Start: 12-18-2019 End: 12-24-2019 take 1 puff(s) by inhalation twice daily Fluticasone Propion-Salmeterol (Advair Diskus) 100-50 mcg/dose Blister With Device Discontinued 1 PUFF INHALATION Twice daily December 18, 2019 1:00am December 24, 2019 5:24pm furosemide 40 mg oral tablet (20 sources) Loop Diuretic Start: 01-27-2021 End: 08-14-2021 take 1 tablet by mouth twice daily in the morning, then take 4 tablets by mouth in the evening furosemide (LASIX) 40 MG tablet Indications: Proliferative diabetic retinopathy of both eyes associated with type 2 diabetes mellitus, unspecified proliferative retinopathy type (HCC) , Vitreous hemorrhage of left eye (HCC) TAKE 1 TABLET BY MOUTH TWICE DAILY AT 8 AM AND 4 PM 0 01/27/2021 Active furosemide (LASI X) 40 MG tablet Indications: Proliferative diabetic retinopathy of both eyes associated with type 2 diabetes mellitus, unspecified proliferative retinopathy type (HCC) , Vitreous hemorrhage of left eye (HCC) Take 40 mg by mouth. 0 Active take 1 tablet by jacobo th every twenty-four hours take 1 tablet by mouth twice jono ly furosemide (LASIX) 40 MG tablet Take 40 mg by mouth 2 times daily I tablet by mouth twice a day related to essential hypertension. 0 Active glucagon (rdna) 1 mg injection (1 source) Antihypoglycemic Agent Start: 12-28-2020 glucago n (rDNA) injection 1 mg 150 ml glucose 50 mg/ml injection (3 sources) Start: 12-28-2020 glucose (GLUTO SE) 40 % oral gel 15 g Start: 12-28-2020 dextrose 50 % IV solution Start: 12-28-2020 dextrose 5 % s olution guaiFENesin 1200 mg oral tablet (2 sources) take 1 tablet by mouth every twelve hours as needed guaiFENesin ER 1200 MG 1 tablet as needed Orally every 12 hrs Active hydroCHLOROthiazide 25 mg oral tablet (20 sources) Thiazide Diuretic Start: End: take 1 tablet by mouth once daily hydrochlorothiazide (HYDRODIURIL) 25 MG tablet TK 1 T PO QD 0 02/23/2020 Active End: 12-29-2020 hydroCHLOROthiazide (HYDRODI URIL) 50 MG tablet Take 25 mg by mouth daily 0 12/29/2020 Discontinued (Stop Taking at Discharge) sodium hypochlorite 1.25 mg/ ml topical spray (14 sources) Start: 10-07-2020 sodium hypoclh orite (DAKINS) 0.125 % SOLN external solution Dakin's Solution 0.125 % 0 10/07/2020 Active Start: 10-07-2020 sodium hypoclh orite (DAKINS) 0.125 % SOLN external solution Dakin's Solution 0.125 % 0 10/07/2020 Active Insulin Aspart U-100 (Novolo g Flexpen U-100 Insulin) 100 unit/mL (3 mL) Insulin Pen (20 sources) Start: 08-14-2021 Insulin Aspart U-100 (Novolog Flexpen U-100 Insulin) 100 unit/mL (3 mL) Insulin Pen Active 0 UNITS SUBCUT Before meals and at bedtime August 14, 2021 10:14am Start: 08-14-2021 inject 10 [IU] by reyna bcutaneous injection once before mealtime Insulin Aspart U-100 (Novolog Flexpen U-100 Insulin) 100 unit/mL (3 mL) Insulin Pen Active 10 UNITS SUBCUT 3x/Day before meals August 14, 2021 10:14am Start: 08-14-2021 End: 04-15-2023 Insulin Aspart U-100 (Novolo g Flexpen U-100 Insulin) 100 unit/mL (3 mL) Insulin Pen Discontinued 0 UNITS SUBCUT Before meals and at bedtime August 14, 2021 12:00am April 15, 2023 11:14pm Start: 08-14-2021 End: 04-15-2023 inject 10 [IU] by subcutaneous injection once before mealtime Insulin Aspart U-100 (Novolog Flexpen U-100 Insulin) 100 unit/mL (3 mL) Insulin Pen Discontinued 10 UNITS SUBCUT 3x/Day before meals August 14, 2021 12:00am April 15, 2023 11:14pm Start: 01-27-2021 End: 08-14-2021 Insulin Aspart U-100 (Novolo g Flexpen U-100 Insulin) 100 unit/mL (3 mL) Insulin Pen Discontinued 0 UNITS SUBCUT 3X/Day with meals and bedtime 08 12January 27, 2021 1:39pm August 14, 2021 5:16pm Start: 01-27-2021 End: 08-14-2021 Insulin Aspart U-100 (Novolo g Flexpen U-100 Insulin) 100 unit/mL (3 mL) Insulin Pen Discontinued 0 UNITS SUBCUT 3X/Day with meals and bedtime 08 12January 27, 2021 12:00am August 14, 2021 5:16pm Start: 12-24-2019 End: 01-27-2021 inject 6 [IU] by subcutaneous injection once before mealtime Insulin Aspart U-100 (Novolog Flexpen U-100 Insulin) 100 unit/mL (3 mL) Insulin Pen Discontinued 6 UNITS SUBCUT 3x/Day before meals December 24, 2019 10:24am January 27, 2021 1:52pm Start: 12-24-2019 End: 01-27-2021 Insulin Aspart U-100 (Novolo g Flexpen U-100 Insulin) 100 unit/mL (3 mL) Insulin Pen Discontinued 0 UNITS SUBCUT 3X/Day with meals and bedtime December 24, 2019 10:24am January 27, 2021 1:52pm Start: 12-24-2019 End: 01-27-2021 inject 6 [IU] by subcutaneous injection once before mealtime Insulin Aspart U-100 (Novolog Flexpen U-100 Insulin) 100 unit/mL (3 mL) Insulin Pen Discontinued 6 UNITS SUBCUT 3x/Day before meals December 24, 2019 12:00am January 27, 2021 1:52pm Start: 12-24-2019 End: 01-27-2021 Insulin Aspart U-100 (Novolo g Flexpen U-100 Insulin) 100 unit/mL (3 mL) Insulin Pen Discontinued 0 UNITS SUBCUT 3X/Day with meals and bedtime December 24, 2019 12:00am January 27, 2021 1:52pm insulin aspart, human (20 sources) Insulin Analog Start: 12-24-2019 INSULIN ASPART SUBCUTANEOUS Insulin, Aspart, Human Insulin Aspart U-100 Active 0 UNITS Subcutaneous 3X/Day with meals and bedtime December 24, 2019 10:24am 12-24-2019 [facility] ([id number]) 0 12/24/2019 Active NovoLOG FlexPen 100 UNIT/ML SOLN INJECT SUBCUTANEOUSLY DIRECTED. Quantity: 0 Refills: 0 Ordered: 17-Jan-2022 DO Active Insulin Aspart F lexPen 100 UNIT/ML as directed Subcutaneous tid Not-Taking NovoLOG 100 UNIT /ML as directed Subcutaneous Active 3 ml insulin detemir 100 unt/ml pen injector (20 sources) Insulin Analog Start: 12-24-2019 End: 08-03-2023 Insulin Detemir 100 UNIT/ML SOPN insulin detemir Insulin Detemir U-100 Active 50 UNITS Subcutaneous Daily December 24, 2019 10:24am 12-24-2019 [facility] ([id number]) 0 12/24/2019 Active Start: 12-24-2019 End: 06-21-2021 inject 20 [IU] by subcutaneous injection twice daily Insulin Detemir U-100 Active 20 UNIT SUBCUT TWICE A DAY 0 August 03, 2023 11:01am Start: 12-24-2019 End: 04-21-2022 Insulin Detemir U-100 (Levem ir Flextouch U100 Insulin) 100 unit/mL (3 mL) Insulin Pen Discontinued 48 UNIT SUBCUT Twice daily August 14, 2021 12:00am April 21, 2022 9:52pm Start: 12-24-2019 End: 08-14-2021 Insulin Detemir U-100 (Levem ir Flextouch U100 Insulin) 100 unit/mL (3 mL) Insulin Pen Discontinued 30 UNIT SUBCUT Twice daily June 21, 2021 11:31am August 14, 2021 5:16pm Start: 12-24-2019 End: 01-27-2021 Insulin Detemir U-100 (Levem ir Flextouch U-100 Insuln) 100 unit/mL (3 mL) Insulin Pen Discontinued 50 UNITS SUBCUT Daily December 24, 2019 10:24am January 27, 2021 1:52pm Levemir FlexTouc h 100 UNIT/ML 40 units Subcutaneous TWICE A DAY for 90 days (titrate up to max 90 units/day) Active Levemir FlexPen 100 UNIT/ML Subcutaneous Solution USE DIRECTED Quantity: 0 Refills: 0 Ordered: 17-Jan-2022 DO Active Levemir FlexTouc h 100 UNIT/ML 42 units Subcutaneous Twice per day for 90 days (Expect up to 100 units daily) Active 3 ml insulin glargine 100 unt/ml pen injector (20 sources) Insulin Analog Start: 04-15-2023 Insulin Glargi ne (Lantus Solostar U-100 Insulin) 100 unit/mL (3 mL) insulin pen Active 42 UNIT SUBCUT Twice daily April 15, 2023 12:00am Start: 10-23-2020 Lantus SoloSta r 100 UNIT/ML SOPN injection insulin glargine (LANTUS) 100 UNIT/ML injection vial Inject into the skin nightly 45 units subcutaneously two times a day 0 Active 3 ml insulin lispro 100 unt/ml pen injector (20 sources) Insulin Analog Start: 08-02-2023 inject 1 dose by subcutaneous injection three times daily Insulin Lispro (Humalog Kwikpen Insulin) 100 unit/mL Insulin Pen Active 1 sliding scale dose SUBCUT THREE TIMES A DAY August 02, 2023 12:00am Start: 12-28-2020 insulin lispro (HUMALOG) injection vial 0-12 Units Start: 10-23-2020 insulin lispro , 1 Unit Dial, (HUMALOG KWIKPEN) 100 UNIT/ML SOPN injection insulin lispro, 1 Unit Dial, (HumaLOG KwikPen) 100 UNIT/ML SOPN injection Humalog KwikPen (U-100) Insulin 100 unit/mL subcutaneous Inject by subcutaneous route. 0 Active 3 ml insulin, regular, human 500 unt/ml pen injector (14 sources) Insulin Start: 12-18-2019 insulin regula r human, CONC, (HUMULIN) 500 UNIT/ML SOPN injection pen Inject under the skin. 0 12/18/2019 Active 24 hr isosorbide mononitrate 60 mg extended release oral tablet (20 sources) Nitrate Vasodilator Start: 08-02-2023 take 60 mg by mouth once daily Isosorbide Mononitrate Active 60 MG ORAL DAILY August 02, 2023 12:00am Start: 01-19-2022 take 60 mg by mouth once daily Isosorbide Mononitrate Active 60 MG PO Daily April 17, 2023 12:00am Start: 10-23-2020 End: 04-15-2023 isosorbide mononitrate (IMDU R) 30 MG CR tablet isosorbide dinitrate 30 mg oral tablet (14 sources) Nitrate Vasodilator take 2 tablets by mouth twice daily isosorbide dinitrate (ISORDIL) 30 MG tablet isosorbide dinitrate 30 mg tablet Take 2 tablets twice a day by oral route. 0 Active Levemir Flexpen (1 source) Levemir Flexpen Active Levemir FlexTouch 100 UNIT/ML (2 sources) Levemir FlexTouc h 100 UNIT/ML 42 units Subcutaneous bid for 90 days (titrate up to max 90 units/day) Active levothyroxine sodium 0.025 mg oral tablet (20 sources) l-Thyroxine Start: 08-02-20 take 25 ug by mouth once daily Levothyroxine Active 25 MCG ORAL DAILY August 02, 2023 12:00am Start: 01-27-2021 take 2 tablets by mo ut once daily levothyroxine (SYNTHROID) 25 MCG tablet Indications: Proliferative diabetic retinopathy of both eyes associated with type 2 diabetes mellitus, unspecified proliferative retinopathy type (HCC) , Vitreous hemorrhage of left eye (HCC) Take 25 mcg by mouth daily. 0 01/27/2021 Active Start: 12-29-2020 End: 08-14-2021 take 25 ug by mouth once daily Levothyroxine Discontin ued 25 MCG PO Daily at 0630 30 January 27, 2021 12:00am August 14, 2021 5:16pm take 1 tablet by jacobo once daily in the morning Levothyroxine Sodium 25 MCG 1 tablet in the morning on an empty stomach Orally Once a day Active 3 ml liraglutide 6 mg/ml pen injector (20 sources) GLP-1 Receptor Agonist Start: 08-02-2023 Liraglutide (Victoza 3-Crista) 0.6 mg/0.1 mL (18 mg/3 mL) Pen Injector Active 1.8 MG SUBCUT DAILY August 02, 2023 12:00am Start: 01-12-2022 inject 0.6 mg by sub cutaneous injection once daily, then inject 1.8 mg by subcutaneous injection once daily Liraglutide (Victoza 3-Crista) 0.6 mg/0.1 mL (18 mg/3 mL) pen injector Active 0 SUBCUT .COMPLEX January 12, 2022 3:26pm inject 0.6mg subcutaneously once daily x 7 days; then 1.2mg daily, not to exceed 1.8mg/day Start: 01-12-2022 End: 04-15-2023 Liraglutide (Victoza 3-Crista) 0.6 mg/0.1 mL (18 mg/3 mL) pen injector Active 0 SUBCUT .COMPLEX January 12, 2022 3:26pm 1.8mg/day losartan potassium 50 mg oral tablet (20 sources) Angiotensin 2 Receptor Dale Start: 08-02-2023 take 50 mg by mouth once daily Losartan Active 50 MG ORAL DAILY August 02, 2023 12:00am Start: 04-21-2022 take 50 mg by mouth once daily in the morning Losartan Active 50 MG PO Every morning April 21, 2022 9:50pm Start: 02-14-2022 take 1 tablet by jacobo th once daily Losartan Potassium 50 MG Oral Tablet TAKE 1 TABLET DAILY. Quantity: 90 Refills: 3 Ordered: 14-Feb-2022 Aicha Saleh Start : 14-Feb-2022 Active Start: 01-12-2022 End: 04-21-2022 take 25 mg by mouth once daily in the morning Losartan Discontinued 25 MG PO Every morning January 12, 2022 2:10pm April 21, 2022 9:52pm take 1 tablet by jacobo th every twenty-four hours Losartan Potassium 100 MG 1 tablet Orally Once a day Active melatonin 10 mg oral tablet (8 sources) Start: 01-10-2022 take 20 mg by mouth at bedtime Melatonin Active 20 MG PO Bedtime January 10, 2022 11:12pm Melatonin 10 MG Oral Tablet Take as directed Quantity: 0 Refills: 0 Ordered: 17-Jan-2022 DO Active take 2 tablets by mo [facility] once daily at bedtime melatonin 3 MG TABS tablet Take 6 mg by mouth daily At HS 0 Active methocarbamol 500 mg oral tablet (15 sources) Muscle Relaxant take 2 tablets by mouth four times daily methocarbamol (ROBAXIN) 500 MG tablet methocarbamol 500 mg tablet Take 2 tablets 4 times a day by oral route. 0 Active take 1 tablet by jacobo th four times daily as needed for muscle spasms methocarbamol (ROBAXIN) 500 MG tablet Ta ke 500 mg by mouth 4 times daily As needed spasms 0 Active metOLazone 2.5 mg oral tablet (20 sources) Thiazide-like Diuretic Start: 04-15-2023 take 2.5 mg by mouth once Metolazone Active 2.5 MG PO every Saturday, Saturday, and Saturday April 15, 2023 12:00am Start: 04-09-2023 metOLazone 2.5 MG 1 tablet Orally 1 tablet every SAT - SAT - SAT for 90 days Mar, Active take 1 tablet by jacobo th once daily for edema metOLazone (ZAROXOLYN) 2.5 MG tablet Take 2.5 mg by mouth daily By mouth every Saturday and for edema 0 Active metoprolol tartrate 50 mg oral tablet (20 sources) beta-Adrenergic Dale Start: 12-24-2019 End: 01-27-2021 take 1 tablet by mouth twice daily metoprolol (LOPRESSOR) 50 MG tablet TK 1 T PO BID 0 02/23/2020 Active mometasone furoate 1 mg/ml topical cream (14 sources) Corticosteroid mometasone (ELOCON) 0.1 % cream Indications: Proliferative diabetic retinopathy of both eyes associated with type 2 diabetes mellitus, unspecified proliferative retinopathy type (HCC) , Vitreous hemorrhage of left eye (HCC) mometasone 0.1 % topical cream 0 Active 24 hr nicotine 0.875 mg/hr transdermal system (20 sources) Cholinergic Nicotinic Agonist Start: 01-12-2022 apply 1 dose transdermal route once daily Nicotine Active 1 PATCH TRANSDERML Daily January 12, 2022 2:10pm Start: 12-18-2019 nicotine (JUAN R DERM CQ) 14 mg/24HR patch Place 1 Patch on the skin. 0 12/18/2019 Active Start: 12-18-2019 End: 01-27-2021 Nicotine Discontinued 1 EACH TRANSDERML Q24H December 24, 2019 12:00am January 27, 2021 1:52pm apply 1 dose transde rmal route once daily Nicotine 14 MG/24HR 1 patch to skin Transdermal Once a day Active nitroglycerin 0.4 mg sublingual tablet (20 sources) Nitrate Vasodilator Start: 08-02-2023 Nitroglyce rin Active 0.4 MG SUBLINGUAL Q5M August 02, 2023 12:00am do not exceed 3 doses per episode Start: 01-12-2022 End: 04-15-2023 Nitroglycerin Active 0.4 MG SUBLINGUAL Q5M January 12, 2022 2:10pm Start: 01-30-2021 apply 0.1 mg transde rmal route every hour nitroglycerin (NITRODUR) 0.1 mg/HR patch Indications: Proliferative diabetic retinopathy of both eyes associated with type 2 diabetes mellitus, unspecified proliferative retinopathy type (HCC) , Vitreous hemorrhage of left eye (HCC) APPLY 1 PATCH TO THE SKIN ONCE EVERY DAY 0 01/30/2021 Active Start: 01-27-2021 End: 01-12-2022 Nitroglycerin Discontinued 1 EACH TRANSDERML Daily at 0600 August 14, 2021 12:00am January 12, 2022 3:25pm Nitroglycerin 0. 4 MG as directed Sublingual Active apply 0.1 mg transde rmal route every hour as needed nitroGLYCERIN (NITRODUR) 0.1 MG/HR Place 1 patch onto the skin 2 times daily as needed For HTN 0 Active nystatin 100 unt/mg topical powder (2 sources) Polyene Antifungal Start: 08-02-2023 Nystatin (N yamyc) 100,000 unit/gram Powder Active 1 APPLIC TOPICAL DAILY August 02, 2023 12:00am apply to stomach Start: 04-18-2023 Nystatin (Nyst op) 100,000 unit/gram Powder Active 1 APPLIC TOPICAL Twice daily April 18, 2023 12:00am omeprazole 20 mg delayed release oral capsule (20 sources) Proton Pump Inhibitor Start: 08-02-2023 take 20 mg by mouth once daily Omeprazole Active 20 MG ORAL DAILY August 02, 2023 12:00am Start: 01-27-2021 take 2 capsules by m outh once daily omeprazole (PRILOSEC) 20 MG capsule Indications: Proliferative diabetic retinopathy of both eyes associated with type 2 diabetes mellitus, unspecified proliferative retinopathy type (HCC) , Vitreous hemorrhage of left eye (HCC) Take 20 mg by mouth daily. 0 01/27/2021 Active Start: 01-27-2021 End: 08-14-2021 take 20 mg by mouth once daily Omeprazole Active 20 MG PO Daily August 14, 2021 12:00am 2 ml ondansetron 2 mg/ml injection (16 sources) Serotonin-3 Receptor Antagonist Start: 12-28-2020 End: 12-28-2020 ondansetron (ZOFRAN) injection 4 mg ondansetron (ZOF RAN-ODT) 4 MG disintegrating tablet ondansetron [address] 2 tablets twice a day by translingual route. 0 Active Pen Sparta 5/16 (19 sources) Start: 02-14-2022 Pen Sparta 5/ 16 Use with insulin pen needles SQ 6 times per day for 90 days February, Active Start: 02-14-2022 Pen Sparta 5/ 16 Use with insulin pen needles SQ 6 times per day for 90 day(s) February, Active Pen Sparta 5/16 Use with insulin pen needles SQ 6 times per day for 90 days Active phenylephrine hydrochloride 25 mg/ml ophthalmic solution (1 source) alpha-1 Adrenergic Agonist Start: 09-03-2022 End: 09-04-2022 PHENYLephrine 2.5 % 1 Drop (AK-DILATE, YVES-SYNEPHRINE) polyethylene glycol 3350 21430 mg powder for oral solution (7 sources) Osmotic Laxative Start: 08-02-2023 take 17 g by mouth once daily Polyethylene Glycol 3350 Active 17 GM ORAL DAILY August 02, 2023 12:00am Start: 08-14-2021 End: 01-10-2022 Polyethylene Glycol 3350 (Mi ralax) 17 gram Powder In Packet Discontinued 17 GM PO Daily August 14, 2021 10:15am January 10, 2022 1:40pm Start: 12-28-2020 polyethylene g lycol (GLYCOLAX) packet 17 g potassium chloride 20 meq extended release oral tablet (20 sources) Start: 08-02-2023 take 20 mEq by mouth once daily Potassium Chloride Active 20 MEQ ORAL DAILY August 02, 2023 12:00am Start: 07-28-2021 End: 04-15-2023 Potassium Chloride (Klor-Con M20) 20 mEq Tablet,Er Particles/Crystals Discontinued 20 MEQ PO Daily August 14, 2021 12:00am April 15, 2023 11:20pm Start: 01-27-2021 take 2 tablets by [facility] once daily potassium chloride SA (K-DUR) 20 MEQ controlled release tablet Indications: Proliferative diabetic retinopathy of both eyes associated with type 2 diabetes mellitus, unspecified proliferative retinopathy type (HCC) , Vitreous hemorrhage of left eye (HCC) Take 40 mEq by mouth daily. 0 01/27/2021 Active Start: 01-27-2021 End: 07-28-2021 Potassium Chloride (Klor-Con M20) 20 mEq Tablet,Er Particles/Crystals Discontinued 40 MEQ PO Daily 60 January 27, 2021 1:41pm July 28, 2021 2:52pm Start: 12-18-2019 End: 01-27-2021 potassium chloride SA (K-DUR ) 10 MEQ controlled release tablet Potassium Chloride Potassium Chloride Active 10 MEQ Oral Daily December 24, 2019 10:24am 12-24-2019 [facility] ([id number]) 0 12/24/2019 Active take 2 tablets by mo [facility] once daily Potassium Chloride Ria ER 20 MEQ Oral Tablet Extended Release TAKE 2 TABLETS DAILY. Quantity: 0 Refills: 0 Ordered: 19-Jan-2022 DO Active take 1 tablet by jacobo th every twelve hours Klor-Con 10 10 MEQ 1 tablet with food Orally Twice a day Active take 1 tablet by jacobo th once daily, then take 1 tablet by mouth potassium chloride (KLOR-CON M) 10 MEQ extended release tablet Take 10 mEq by mouth daily 0 Active predniSONE 10 mg oral tablet (2 sources) predniSONE 10 MG taper: 4 tabs daily for 4 days, 3 tabs daily for 4 days, 2 tabs daily for 4 days, 1 tab daily for 4 days. Orally daily for 16 days Active Prodigy AutoCode Blood Gluco se - (20 sources) Start: 01-22-2022 Prodigy AutoCo de Blood Glucose - as directed SQ 4 times a day for 365 days Patient has diminished vision. Jan, Active Start: 01-22-2022 Prodigy AutoCo de Blood Glucose - as directed In Vitro 4 times a day for 30 days E11.65 Patient has diminished vision. Jan, Active Prodigy AutoCode Blood Glucose - as directed SQ 4 times a day for 365 days Patient has diminished vision. Active Prodigy AutoCode Blood Glucose - as directed In Vitro 4 times a day for 30 days E11.65 Patient has diminished vision. Active roflumilast 0.5 mg oral tablet (8 sources) Phosphodiesterase 4 Inhibitor take 1 tablet by mouth every twenty-four hours Roflumilast 500 MCG 1 tablet Orally Once a day Active take 1 tablet by jacobo th every twenty-four hours Roflumilast 500 MCG 1 tablet Orally Once a day Active rOPINIRole 2 mg oral tablet (20 sources) Nonergot Dopamine Agonist Start: 08-02-2023 take 2 mg by mouth three times daily Ropinirole Active 2 MG ORAL THREE TIMES A DAY August 02, 2023 12:00am Start: 04-17-2023 take 2 mg by mouth t hree times daily Ropinirole Active 2 MG PO Three times daily April 17, 2023 12:00am Start: 12-29-2020 End: 04-15-2023 take 2 mg by mouth three times daily Ropinirole Discontinued 2 MG PO Three times daily August 14, 2021 12:00am April 15, 2023 11:20pm Start: 12-24-2019 rOPINIRole (RE QUIP) 0.5 MG tablet 1.5 mg. 0 12/24/2019 Active Start: 12-24-2019 End: 01-27-2021 take 1.5 mg by mouth three times daily Ropinirole Discontinued 1.5 MG PO Three times daily December 24, 2019 10:24am January 27, 2021 1:52pm Start: 12-18-2019 End: 12-24-2019 take 1.5 mg by mouth three times daily Ropinirole Discontinued 1.5 MG PO Three times daily December 18, 2019 10:58pm December 24, 2019 5:24pm take 1 tablet by jacobo th once daily at bedtime rOPINIRole HCl 0.5 MG 1 tablet 1 to 3 hours before bedtime Orally Once a day Active Sennosides (Senna Lax) 8.6 mg Tablet (10 sources) Start: 08-14-2021 take 2 tablets by mouth once daily at bedtime Sennosides (Senna Lax) 8.6 mg Tablet Active 17.2 MG PO Daily at bedtime 60 August 14, 2021 10:15am Start: 08-14-2021 End: 04-15-2023 take 2 tablets by mouth once daily at bedtime Sennosides (Senna Lax) 8.6 mg Tablet Discontinued 17.2 MG PO Daily at bedtime August 14, 2021 12:00am April 15, 2023 11:20pm Start: 12-24-2019 End: 01-27-2021 take 2 tablets by mouth once daily Sennosides (Senna Lax) 8.6 mg Tablet Discontinued 2 TAB PO DAILY@12 60 December 24, 2019 10:24am January 27, 2021 1:52pm Start: 12-24-2019 End: 01-27-2021 take 2 tablets by mouth once daily Sennosides (Senna Lax) 8.6 mg Tablet Discontinued 2 TAB PO DAILY@December 24, 2019 12:00am January 27, 2021 1:52pm sennosides, correction 8.6 mg oral tablet (15 sources) Start: 12-24-2019 senna (SENOKOT ) 8.6 MG TABS tablet sennosides, CUSTODIAL Sennosides Active 2 TAB Oral DAILY@December 24, 2019 10:24am 12-24-2019 [facility] ([id number]) 0 12/24/2019 Active take 2 tablets by [facility] every twenty-four hours Senna Laxative 8.6 MG 2 tablets at bedtime as needed Orally Once a day Active 3 ml sodium chloride 9 mg/ml injection (6 sources) Start: 12-28-2020 0.9 % sodium c hloride infusion Start: 12-28-2020 sodium chlorid e flush 0.9 % injection 10 mL sodium phosphate, dibasic 35.5 mg/ml / sodium phosphate, monobasic 96.4 mg/ml enema (14 sources) sodium phosphate -dibasic sodium phosphate (fleets) 7-19 GM/118ML ENEM enema Fleet Enema Extra 19 gram-7 gram/197 mL Insert by rectal route. 0 Active tamsulosin hydrochloride 0.4 mg oral capsule (1 source) alpha-Adrenergi c Dale Start: 08-02-20 take 0.4 mg by mouth at bedtime Tamsulosin Active 0.4 MG ORAL Bedtime August 02, 2023 12:00am terazosin 2 mg oral capsule (20 sources) alpha-Adrenergi c Dale Start: 01-14-20 End: 04-15-20 23 terazosin (HYTRIN) 2 MG capsule Indications: Proliferative diabetic retinopathy of both eyes associated with type 2 diabetes mellitus, unspecified proliferative retinopathy type (HCC) , Vitreous hemorrhage of left eye (HCC) Take 2 mg by mouth daily. 0 01/27/2021 Active Terazosin HCl 2 MG TABS TAKE 1 TABLET DAILY. Quantity: 0 Refills: 0 Ordered: 17-Jan-2022 DO Active tiZANidine 2 mg oral tablet (14 sources) Central alpha-2 Adrenergic Agonist Start: 12-30-2018 tizanidine (ZANAFLEX) 2 MG tablet Take by mouth. 0 12/30/2018 Active traMADol hydrochloride 50 mg oral tablet (20 sources) Opioid Agonist Start: 12-24-2019 End: 01-27-2021 tramadol (ULTRAM) 50 MG tablet 50 mg. 0 12/24/2019 Active take 1 tablet by jacobo th every twenty-four hours traMADol HCl 50 MG 1 tablet as needed Orally Once a day Active traZODone hydrochloride 50 mg oral tablet (20 sources) Serotonin Reuptake Inhibitor Start: 04-16-2023 End: 04-17-2023 Trazodone Discontinued MG TABLET April 16, 2023 12:00am April 17, 2023 2:25pm Start: 02-24-2020 End: 04-15-2023 take 1 tablet by mouth once daily in the evening trazodone (DESYREL) 50 mg tablet TK 1 T PO QPM 0 02/24/2020 Active tropicamide 10 mg/ml ophthalmic solution (1 source) Anticholinergic Start: 09-03-2022 End: 09-04-2022 tropicamide 1 % 1 Drop (MYDRIACYL) varenicline (15 sources) Partial Cholinergic Nicotinic Agonist Start: 02-24-2020 CHANTIX STARTING MONTH CRISTA 0.5 MG X 11 & 1 MG X 42 tablet TK UTD 0 02/24/2020 Active Chantix Active Completed/Discontinued Medications Medication Drug Class(es) Dates Sig (Normalized) Sig (Original) acetaminophen 500 mg oral tablet (20 sources) Start: 12-28-2020 acetaminophen (TYLENOL) tablet 650 mg Start: 12-28-2020 acetaminophen (TYLENOL) tablet 650 mg Start: 12-24-2019 End: 04-15-2023 acetaminophen (TYLENOL) 500 MG tablet 500 mg. 0 12/24/2019 Active take 1 tablet by jacobo th every four hours as needed for pain Acetaminophen 500 MG as directed Orally 1 tablet by mouth every 4 hours as needed for pain Active bacitracin 0.5 unt/mg topica l ointment (20 sources) Start: 12-24-2019 End: 01-27-2021 Bacitracin Discontinued 1 AP PLIC TOPICAL Daily December 24, 2019 5:24pm January 27, 2021 1:52pm Start: 12-24-2019 bacitracin 500 UNIT/GM ointment Bacitracin Bacitracin Active 1 APPLIC Topical Daily December 24, 2019 5:24pm 12-24-2019 [facility] ([id number]) 0 12/24/2019 Active Start: 12-24-2019 bacitracin 500 UNIT/GM ointment Bacitracin Bacitracin Active 1 APPLIC Topical Daily December 24, 2019 5:24pm 12-24-2019 [facility] ([id number]) 0 12/24/2019 Active Bacitracin Activ e bevacizumab (AVASTIN) 1.25MG/0.05 mL intravitreal injection (8 sources) Start: 09-11-2023 End: 09-11-2023 bevacizumab (AVASTIN) 1.25MG/0.05 mL intravitreal injection Start: 09-11-2023 bevacizumab (A VASTIN) 1.25MG/0.05 mL intravitreal injection Start: 06-26-2023 End: 09-18-2023 bevacizumab (AVASTIN) 1.25MG /0.05 mL intravitreal injection Start: 10-17-2022 End: 10-17-2022 bevacizumab (AVASTIN) 1.25MG /0.05 mL intravitreal injection Start: 03-21-2022 End: 03-21-2022 bevacizumab (AVASTIN) 1.25MG /0.05 mL intravitreal injection cefepime (5 sources) Cephalosporin Antibacterial Start: 06-21-2021 End: 08-14-2021 take 2 g intravenously every eight hours Cefepime Discontinued 2 GM IV Q8H June 21, 2021 2:01pm August 14, 2021 5:16pm Start: 06-21-2021 End: 08-14-2021 take 2 g intravenously every eight hours Cefepime Discontinued 2 GM IV Q8H June 21, 2021 12:00am August 14, 2021 5:16pm docusate sodium 100 mg oral capsule (20 sources) Start: 08-14-2021 End: 01-10-2022 take 1 capsule by mouth three times daily Docusate Sodium (Dok) 100 mg Capsule Discontinued 100 MG PO Three times daily 90 August 14, 2021 10:09am January 10, 2022 1:40pm Start: 02-23-2020 DOK 100 MG cap mikki TK 1 C PO QD 0 02/23/2020 Active Start: 12-24-2019 End: 01-27-2021 take 1 capsule by mouth twice daily Docusate Sodium (Dok) 100 mg Capsule Discontinued 100 MG PO Twice daily 60 December 24, 2019 10:24am January 27, 2021 1:52pm gabapentin 300 mg oral capsule (5 sources) Anti-epileptic Agent Start: 08-14-2021 End: 01-10-2022 take 300 mg by mouth twice daily Gabapentin Discontinued 300 MG PO Twice daily 60 August 14, 2021 10:09am January 10, 2022 1:40pm Insulin Detemir U-100 (Levemir Flextouch U100 Insulin) 100 unit/mL (3 mL) insulin pen (1 source) Start: 04-21-2022 End: 04-17-2023 Insulin Detemir U-100 (Levemir Flextouch U100 Insulin) 100 unit/mL (3 mL) insulin pen Discontinued 42 UNIT SUBCUT Twice daily April 21, 2022 9:50pm April 17, 2023 2:33pm iopamidol (ISOVUE-370) 76 % injection 100 mL (1 source) Start: 12-20-2020 End: 12-20-2020 iopamidol (ISOVUE-370) 76 % injection 100 mL metFORMIN hydrochloride 1000 mg oral tablet (5 sources) Biguanide Start: 06-21-2021 End: 08-14-2021 take 1000 mg by mouth twice daily Metformin Discontinued 1000 MG PO Twice daily 90 June 21, 2021 11:53am August 14, 2021 5:16pm 1 ml morphine sulfate 2 mg/ml cartridge (1 source) Opioid Agonist Start: 12-28-2020 End: 12-28-2020 morphine (PF) injection 2 mg oxyCODONE hydrochloride 5 mg oral tablet (20 sources) Opioid Agonist Start: 07-28-2021 End: 01-10-2022 take 5 mg by mouth every four hours Oxycodone Discontinued 5 MG PO Every 4 hours 30 August 14, 2021 January 10, 2022 1:40pm Start: 01-27-2021 End: 07-28-2021 take 5 mg by mouth every six hours Oxycodone Discontinued 5 MG PO Every 6 hours 28 7 January 27, 2021 July 28, 2021 2:52pm Start: 10-01-2020 take 1 tablet by jacobo every eight hours for pain oxyCODONE 5 MG immediate release tablet take 1 tablet by mouth every 8 hours if needed for pain 0 10/01/2020 Active pregabalin 75 mg oral capsule (20 sources) Start: 01-27-2021 End: 08-14-2021 take 75 mg by mouth once daily at bedtime Pregabalin Discontinued 75 MG PO Daily at bedtime January 27, 2021 1:41pm August 14, 2021 5:16pm Start: 09-26-2020 take 1 capsule by [facility] three times daily pregabalin (LYRICA) 75 MG capsule Take 75 mg by mouth 3 times daily. 0 09/26/2020 Active sacubitril 24 mg / valsartan 26 mg oral tablet (1 source) Angiotensin 2 Receptor Dale Start: 01-19-2022 take 1 tablet by mouth twice daily Entresto 24-26 MG Oral Tablet TAKE 1 TABLET BY MOUTH TWICE A DAY Quantity: 180 Refills: 3 Ordered: 19-Jan-2022 Jaylen Sarmietno DO Start : 19-Jan-2022 Active new start sodium polystyrene sulfonate 250 mg/ml oral suspension (1 source) Start: 12-29-2020 End: 12-29-2020 sodium polystyrene (KAYEXALATE) 15 GM/60ML suspension 15 g valsartan 320 mg oral tablet (20 sources) Angiotensin 2 Receptor Dale Start: 12-29-2020 take 320 mg by mouth once daily 320 mg, Oral, DAILY, First dose on Lore 12/29/20 at 1000 Start: 07-15-2020 End: 08-14-2021 take 1 tablet by mouth once daily valsartan (DIOVAN) 320 MG tablet TK 1 T PO QD 0 07/15/2020 Active zolpidem tartrate 5 mg oral tablet (19 sources) gamma-Aminobutyric Acid-ergic Agonist Start: 12-18-2019 End: 12-24-2019 take 1 tablet by mouth once daily at bedtime Zolpidem (Ambien) 5 mg Tablet Discontinued 5 MG PO Daily at bedtime December 18, 2019 11:11pm December 24, 2019 5:24pm Start: 01-01-2019 zolpidem (Ambi en) 10 MG tablet Take by mouth. 0 01/01/2019 Active Problems Active Problems Problem Classification Problem Date Documented Date Episodic/Chronic Acute cerebrovascular disease (20 sources) Cerebrovascular accident; Translations: [Cerebral infarction, unspecified] Onset: 0 01-14-2021 Chronic Acute myocardial infarction (3 sources) Subsequent non-ST segment elevation myocardial infarction; Translations: [Subendocardial infarction, episode of care unspecified] Chronic Administrative/social admission (12 sources) Other reduced mobility; Translations: [Impaired mobility and activities of daily living] Onset: 1 Resolved: 2 12-19-2019 Episodic Allergic reactions (1 source) Allergy status to other drugs, medicaments and biological substances status; Translations: [ALLERGY STATUS OTH RX MED AND BIO SUBST] Onset: 3 Episodic Anxiety disorders (8 sources) Mixed anxiety and depressive disorder; Translations: [Anxiety disorder, unspecified] 07-29-2021 Chronic Asthma (1 source) Unspecified asthma, uncomplicated; Translations: [UNSPECIFIED ASTHMA UNCOMPLICATED] Onset: 2 Chronic Blindness and vision defects (3 sources) Bilateral myopia of eyes; Translations: [Myopia, bilateral] Episodic Chronic kidney disease (18 sources) Chronic kidney disease stage 3; Translations: [Stage 3 chronic kidney disease] Onset: 3 07-29-2021 Chronic Chronic kidney disease (2 sources) Chronic kidney disease; Translations: [CHRONIC KIDNEY DISEASE STAGE 3A] Onset: 3 Chronic obstructive pulmonary disease and bronchiectasis (2 sources) Chronic obstructive pulmonary disease, unspecified; Translations: [Chronic obstructive pulmonary disease with (acute) exacerbation] Onset: 3 Chronic Complications of surgical procedures or medical care (5 sources) Infection of amputation stump; Translations: [Infection of amputation stump, unspecified extremity] 06-18-2021 Episodic Congestive heart failure; nonhypertensive (3 sources) Heart failure, unspecified; Translations: [Acute on chronic diastolic (congestive) heart failure] Onset: 3 Chronic Coronary atherosclerosis and other heart disease (6 sources) Coronary arteriosclerosis; Translations: [Coronary atherosclerosis of unspecified type of vessel, venetie ira or graft] Onset: 3 Chronic Deficiency and other anemia (1 source) Anemia in chronic kidney disease; Translations: [Anemia of renal disease] Chronic Deficiency and other anemia (5 sources) Anemia of renal disease; Translations: [Anemia in chronic kidney disease] Chronic Deficiency and other anemia (5 sources) Anemia; Translations: [Anemia, unspecified] 01-14-2021 Episodic Diabetes mellitus with complications (20 sources) Neuropathy due to diabetes mellitus; Translations: [Type 2 diabetes mellitus with diabetic neuropathy, unspecified] Onset: 1 Resolved: 2 07-29-2021 Chronic Diabetes mellitus without complication (20 sources) Diabetes mellitus; Translations: [Type 2 diabetes mellitus without complications] Onset: 0 12-19-2019 Chronic Diseases of white blood cells (3 sources) Leukocytosis; Translations: [Elevated white blood cell count, unspecified] Onset: 3 08-03-2023 Chronic Disorders of lipid metabolism (20 sources) Mixed hyperlipidemia; Translations: [Mixed hyperlipidemia] Onset: 1 Resolved: 2 Chronic Essential hypertension (20 sources) Hypertensive disorder; Translations: [Essential (primary) hypertension] Onset: 6 Resolved: 2 12-19-2019 Chronic Headache; including migraine (5 sources) Headache; Translations: [Headache] 01-14-2021 Episodic Headache; including migraine (1 source) Headache; including migraine; Translations: [HEADACHE UNSPECIFIED] Onset: 2 Hyperplasia of prostate (11 sources) Benign prostatic hyperplasia; Translations: [Benign prostatic hyperplasia without lower urinary tract symptoms] Onset: 3 01-14-2021 Chronic Hypertension with complications and secondary hypertension (17 sources) Hypertensive emergency; Translations: [Hypertensive emergency] Onset: 2 01-11-2022 Chronic Immunity disorders (14 sources) Pulmonary sarcoidosis; 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] Onset: 6 01-25-2020 Chronic Inflammation; infection of eye (except that caused by tuberculosis or sexually transmitteddisease) (2 sources) Bilateral viral conjunctivitis; Translations: [Viral conjunctivitis, unspecified] Episodic Menopausal disorders (1 source) Hormone replacement therapy; Translations: [HORMONE REPLACEMENT THERAPY] Onset: 3 Episodic Mood disorders (2 sources) Recurrent major depressive episodes, moderate ; Translations: [Major depressive affective disorder, recurrent episode, moderate] Chronic Nutritional deficiencies (20 sources) Vitamin D deficiency; Translations: [Vitamin D deficiency, unspecified] Chronic Open wounds of extremities (20 sources) Amputated below knee; Translations: [Complete traumatic amputation at level between knee and ankle, unspecified lower leg, initial encounter] Onset: 1 Resolved: 1 01-13-2021 Chronic Other aftercare (20 sources) Long-term current use of insulin; Translations: [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] Episodic Other aftercare (4 sources) shelter (current) use of insulin; Translations: [shelter current use of insulin Z79.4] Onset: 1 Resolved: 2 Episodic Other aftercare (1 source) shelter (current) use of antithrombotics/antiplat elets; Translations: [X RAY DEVELOPER ANTITHROMBOT/ANTIPLATLET S] Onset: 3 Episodic Other aftercare (1 source) shelter (current) use of aspirin; Translations: [PENITENTIARY CURRENT USE OF ASPIRIN] Onset: 3 Episodic Other aftercare (1 source) watermelon harvesting supervisor (current) use of oral hypoglycemic drugs; Translations: [PENITENTIARY USE ORAL HYPOGLYCEMIC DX] Onset: 3 Episodic Other aftercare (1 source) Other moth exterminator (current) drug therapy; Translations: [OTH X RAY DEVELOPER CURRENT DRUG THERAPY] Onset: 3 Episodic Other bone disease and musculoskeletal deformities (5 sources) History of amputation of right leg through tibia and fibula; Translations: [Acquired absence of right leg below knee] 07-29-2021 Chronic Other bone disease and musculoskeletal deformities (6 sources) Acquired absence of right leg below knee; Translations: [Below knee amputation status] Onset: 2 Resolved: 2 Chronic Other bone disease and musculoskeletal deformities (20 sources) Absence of lower limb; Translations: [Acquired absence of right leg below knee] Chronic Other circulatory disease (2 sources) Vascular disorder; Translations: [Vascular occlusion] Onset: 1 12-28-2020 Episodic Other circulatory disease (5 sources) History of cerebrovascular accident; Translations: [Personal history of transient ischemic attack (TIA), and cerebral infarction without residual deficits] 07-29-2021 Episodic Other circulatory disease (20 sources) History of cerebrovascular accident without residual deficits; Translations: [Personal history of transient ischemic attack (TIA), and cerebral infarction without residual deficits] Episodic Other connective tissue disease (3 sources) Other muscle spasm Onset: 2 Resolved: 2 Episodic Other diseases of kidney and ureters (1 source) Secondary hyperparathyroidism of renal origin; Translations: [Secondary hyperparathyroidism] Chronic Other diseases of kidney and ureters (5 sources) Secondary hyperparathyroidism; Translations: [Secondary hyperparathyroidism of renal origin] Chronic Other diseases of kidney and ureters (1 source) Renal impairment; Translations: [Renal insufficiency] Episodic Other endocrine disorders (1 source) Hypoglycemia; Translations: [Hypoglycemia, unspecified] 08-03-2023 Chronic Other endocrine disorders (2 sources) Hypoglycemia, unspecified; Translations: [Hypoglycemia, unspecified] Onset: 3 08-03-2023 Chronic Other gastrointestinal disorders (5 sources) Constipation; Translations: [Constipation, unspecified] 08-04-2021 Episodic Other hereditary and degenerative nervous system conditions (1 source) Restless legs syndrome; Translations: [RESTLESS LEGS SYNDROME] Onset: 3 Chronic Other injuries and conditions due to external causes (1 source) Hypothermia; Translations: [Hypothermia, initial encounter] 08-03-2023 Episodic Other injuries and conditions due to external causes (2 sources) Hypothermia, initial encounter; Translations: [Hypothermia] Onset: 3 08-03-2023 Episodic Other nervous system disorders (8 sources) Disorder of autonomic nervous system; Translations: [Disorder of the autonomic nervous system, unspecified] 01-14-2021 Chronic Other nervous system disorders (5 sources) Phantom limb syndrome with pain; Translations: [Phantom limb syndrome with pain] 07-29-2021 Chronic Other nervous system disorders (20 sources) Phantom pain following amputation of lower limb; Translations: [Phantom limb syndrome with pain] Chronic Other nervous system disorders (3 sources) Phantom limb syndrome with pain Onset: 2 Resolved: 2 Chronic Other nervous system disorders (5 sources) Postoperative pain ; Translations: [Other acute postprocedural pain] 01-27-2021 Episodic Other nutritional; endocrine; and metabolic disorders (5 sources) Obese class I; Translations: [Obesity, unspecified] 12-19-2019 Chronic Other nutritional; endocrine; and metabolic disorders (5 sources) Body mass index 30+ - obesity; Translations: [Obesity, unspecified] 07-29-2021 Chronic Other nutritional; endocrine; and metabolic disorders (2 sources) Obesity; Translations: [Obesity, unspecified] Chronic Other nutritional; endocrine; and metabolic disorders (20 sources) Obese class II; Translations: [Body mass index (BMI) 36.0-36.9, adult] Chronic Other nutritional; endocrine; and metabolic disorders (2 sources) Body mass index (BMI) 36.0-36.9, adult Onset: 2 Resolved: 2 Chronic Other screening for suspected conditions (not mental disorders or infectious disease) (2 sources) Other specified abnormal findings of blood chemistry; Translations: [Other abnormal findings on diagnostic imaging of central nervous system] Onset: 3 Episodic Other skin disorders (5 sources) Mass of neck; Translations: [Localized swelling, mass and lump, neck] 06-18-2021 Episodic Paralysis (5 sources) Right hemiplegia; Translations: [Hemiplegia, unspecified affecting right dominant side] 07-29-2021 Chronic Parkinson`s disease (8 sources) Parkinson's disease; Translations: [Parkinson's disease] 01-14-2021 Chronic Peripheral and visceral atherosclerosis (9 sources) Peripheral vascular disease; Translations: [Peripheral vascular disease, unspecified] 01-14-2021 Chronic Peripheral and visceral atherosclerosis (1 source) Atherosclerosis of artery of lower limb; Translations: [Atherosclerosis 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 (HCC)] Residual codes; unclassified (8 sources) Obstructive sleep apnea syndrome; Translations: [Obstructive sleep apnea (adult) (pediatric)] 01-14-2021 Chronic Residual codes; unclassified (1 source) Sleep apnea, unspecified; Translations: [SLEEP APNEA UNSPECIFIED] Onset: 3 Chronic Residual codes; unclassified (5 sources) Tobacco user; Translations: [Tobacco use] 01-14-2021 Episodic Residual codes; unclassified (5 sources) Patient encounter status; Translations: [Encounter for prophylactic measures, unspecified] 12-19-2019 Episodic Residual codes; unclassified (2 sources) Tobacco use; Translations: [Tobacco use disorder] Episodic Residual codes; unclassified (1 source) Family history of diabetes mellitus; Translations: [FAMILY HISTORY OF DIABETES MELLITUS] Onset: 3 Episodic Residual codes; unclassified (1 source) Family history of stroke; Translations: [FAMILY HISTORY OF STROKE] Onset: 3 Episodic Residual codes; unclassified (1 source) Altered mental status; Translations: [Altered mental status, unspecified] 08-03-2023 Episodic Residual codes; unclassified (3 sources) Altered mental status, unspecified; Translations: [Altered mental status] Onset: 3 08-03-2023 Episodic Substance-related disorders (4 sources) Smokes tobacco daily; Translations: [Tobacco use disorder] Onset: 3 Chronic Comment on above: 1/2 ppd; Thyroid disorders (9 sources) Hypothyroidism; Translations: [Hypothyroidism, unspecified] Onset: 3 07-29-2021 Chronic Unclassified (1 source) CHRN KIDNEY DISEASE STG 3 UNSP; Translations: [CHRN KIDNEY DISEASE STG 3 UNSP] Onset: 3 Unclassified (4 sources) CONTACT W/AND (SUSP) EXPOS COVID-19; Translations: [CONTACT W/AND (SUSP) EXPOS COVID-19] Onset: 3 Past or Other Problems Problem Classification Problem Date Documented Da te Episodic/Chronic Acute and unspecified renal failure (8 sources) Injury of kidney; Translations: [Acute kidney failure, unspecified] Onset: 03-12-2023 08-14-2021 Episodic Fluid and electrolyte disorders (3 sources) Dehydration; Translations: [Dehydration] Onset: 04-16-2023 04-16-2023 Episodic Immunizations and screening for infectious disease (1 source) Contact with and (suspected) exposure to other viral communicable diseases Onset: 08-29-2021 Resolved: 08-29-2021 Episodic Lymphadenitis (1 source) Localized enlarged lymph nodes; Translations: [LOCALIZED ENLARGED LYMPH NODES] Onset: 10-18-2022 Episodic Nonspecific chest pain (20 sources) Chest pain; Translations: [Chest pain, unspecified] Onset: 12-23-2015 06-18-2021 Episodic Other circulatory disease (2 sources) Personal history of transient ischemic attack (TIA), and cerebral infarction without residual deficits; Translations: [Status post CVA Z86.73] Onset: 07-10-2021 Resolved: 07-10-2021 Episodic Other lower respiratory disease (14 sources) Dyspnea; Translations: [Shortness of breath] Onset: 12-23-2015 01-25-2020 Episodic Residual codes; unclassified (1 source) Procedure and treatment not carried out because of patient's decision for other reasons; Translations: [PROC AND TX NOT CARRIED OUT PT OTH RSN] Onset: 08-02-2022 Episodic Respiratory failure; insufficiency; arrest (adult) (1 source) Acute respiratory failure with hypoxia; Translations: [ACUTE RESPIRATORY FAIL W/HYPOXIA] Onset: 10-18-2022 Episodic Skin and subcutaneous tissue infections (20 sources) Cellulitis; Translations: [Cellulitis, unspecified] Onset: 12-07-2018 08-02-2021 Episodic Unclassified (1 source) CONTACT W/AND (SUSP) EXPOS COVID-19; Translations: [CONTACT W/AND (SUSP) EXPOS COVID-19] Onset: 01-31-2023 Viral infection (1 source) COVID-19 Onset: 08-29-2021 Resolved: 08-29-2021 Results Test Name Value Interpretation Reference Range Facility Left eye [facility]hthalm[facility] 09-11-2023 Time Out The date was 09/11/2023. The time was 4:54 PM. Confirmed correct patient, procedure, site, and patient consented. Anesthesia Subconjunctival anesthesia was used. Anesthetic medications included Lidocaine 2%. Procedure Preparation included 5% betadine to ocular surface. A 30 gauge needle was used. Injection Medications: 1.25 mg bevacizumab 1.25MG/0.05 mL Route: Intravitreal Lot: [id number], Expiration date: 09/11/2023 Post-op Post injection exam found visual acuity of at least counting fingers. The patient tolerated the procedure well. There were no complications. Post injection medications were not given. 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 Amaurosis fugax OU - Reported ~08/2020 with transient vision loss episodes but now resolved as of 10/2020 - 12/2019 MRA neck no ICA stenosis - GCA symptoms POWELL, jaw mikaela, F/C negative - rec go to ED if symptoms recur Return 8 weeks Dilate OU OCT mac [facility]U [facility] Right reti na by OCTon 09-11-2023 Right Eye Quality was good. Scan locations included subfoveal. Left Eye Quality was good. Scan locations included subfoveal. Notes OD: stable, thin, no fluid OS: improving view, thin, no fluid [facility] Radiology Study observation (narrative) [facility] Blood Cultureon 08-07-2023 Bacteria identified Cx Nom (Bld) ---- Blood Culture: NG5^NO GROWTH. NG5^Time of report was 120 hours. Normal [facility] Comment on above: Order Comment: Speci men Type: Unknown Relevant Clinical Information: Altered mental status, hypoglycemia, hypothermia Ordering Facility: [facility] Lab-CLIA#[id number] Address: [address] [place], [place] [id number] Performed By: #### M G, CMP #### [facility] Lab-CLIA#[id number] CLIA [id number] [address] [place] [id number] Phil Franklin, DO,FCAP Absolute lymphocyte countOrd ered By: Helen Jovel on 08-03-2023 Lymphocytes Auto (Unsp spec) [#/Vol] 1.26 10*3/uL 0.80-3.30 [facility] Comment on above: Delta: 0.92 on 08/02 Basophils Auto (Bld) [#/Vol] Ordered By: Helen Jovel on 08-03-2023 Basophils (Bld) [#/Vol] 0.03 10*3/uL 0.00-0.10 [facility] Basophils/100 WBC Auto (Bld) Ordered By: Helen Jovel on 08-03-2023 Basophils/100 WBC (Bld) 0.3 % 0.0-1.3 [facility] Blood hemoglobin measurement (mass/volume)Ordered By: Helen Jovel on 08-03-2023 Hemoglobin (Bld) [Mass/Vol] 11.7 g/dL 13.5-17.7 [facility] Comment on above: Delta: 14.0 on 08/02 CBC w/ Auto Diffon Basophils Absolute Auto 0.03 10*3/uL Normal 0.00-0.10 [facility] Comment on above: Order Comment: Speci men Type: Unknown Relevant Clinical Information: Altered mental status, hypoglycemia, hypothermia Ordering Facility: [facility] Address: , , Performed By: #### G LUCOMETER #### [facility] Basophils/100 WBC (Bld) 0.3 % Normal 0.0-1.[address] [facility] Comment on above: Order Comment: Speci men Type: Unknown Relevant Clinical Information: Altered mental status, hypoglycemia, hypothermia Ordering Facility: [facility] Address: , , Performed By: #### G LUCOMETER #### [facility] Eosinophils (Bld) [#/Vol] 0.31 10*3/uL Normal 0.00-0.50 [facility] Comment on above: Order Comment: Speci men Type: Unknown Relevant Clinical Information: Altered mental status, hypoglycemia, hypothermia Ordering Facility: [facility] Address: , , Performed By: #### G LUCOMETER #### [facility] Eosinophils/100 WBC (Bld) 3.0 % Normal 0.0-5.8 [facility] Comment on above: Order Comment: Speci men Type: Unknown Relevant Clinical Information: Altered mental status, hypoglycemia, hypothermia Ordering Facility: [facility] Address: , , Performed By: #### G LUCOMETER #### [facility] Erythrocyte distribution width (RBC) [Ratio] 13.2 % Normal 11.6-14.8 [facility] Comment on above: Order Comment: Speci men Type: Unknown Relevant Clinical Information: Altered mental status, hypoglycemia, hypothermia Ordering Facility: [facility] Address: , , Performed By: #### G LUCOMETER #### [facility] Hematocrit (Bld) [Volume fraction] 34.3 % Low 41.0-53.0 [facility] Comment on above: Order Comment: Speci men Type: Unknown Relevant Clinical Information: Altered mental status, hypoglycemia, hypothermia Ordering Facility: [facility] Address: , , Performed By: #### G LUCOMETER #### [facility] Hemoglobin (Bld) [Mass/Vol] 11.7 g/dL Low 13.5-17.7 [facility] Comment on above: Order Comment: Speci men Type: Unknown Relevant Clinical Information: Altered mental status, hypoglycemia, hypothermia Ordering Facility: [facility] Address: , , Performed By: #### G LUCOMETER #### [facility] Lymphocytes (Bld) [#/Vol] 1.26 10*3/uL Normal 0.80-3.30 [facility] Comment on above: Order Comment: Speci men Type: Unknown Relevant Clinical Information: Altered mental status, hypoglycemia, hypothermia Ordering Facility: [facility] Address: , , Performed By: #### G LUCOMETER #### [facility] Lymphocytes/100 WBC (Bld) 12.2 % Low 13.4-45.1 [facility] Comment on above: Order Comment: Speci men Type: Unknown Relevant Clinical Information: Altered mental status, hypoglycemia, hypothermia Ordering Facility: [facility] Address: , , Performed By: #### G LUCOMETER #### [facility] MCH (RBC) [Entitic mass] 31.5 pg Normal 27.2-33.0 [facility] Comment on above: Order Comment: Speci men Type: Unknown Relevant Clinical Information: Altered mental status, hypoglycemia, hypothermia Ordering Facility: [facility] Address: , , Performed By: #### G LUCOMETER #### [facility] MCHC (RBC) [Mass/Vol] 34.1 g/dL Normal 31.9-35.1 [facility] Comment on above: Order Comment: Speci men Type: Unknown Relevant Clinical Information: Altered mental status, hypoglycemia, hypothermia Ordering Facility: [facility] Address: , , Performed By: #### G LUCOMETER #### [facility] MCV (RBC) [Entitic vol] 92.5 fL Normal 81.7-97.1 [facility] Comment on above: Order Comment: Speci men Type: Unknown Relevant Clinical Information: Altered mental status, hypoglycemia, hypothermia Ordering Facility: [facility] Address: , , Performed By: #### G LUCOMETER #### [facility] Monocytes (Bld) [#/Vol] 0.77 10*3/uL Normal 0.30-0.90 [facility] Comment on above: Order Comment: Speci men Type: Unknown Relevant Clinical Information: Altered mental status, hypoglycemia, hypothermia Ordering Facility: [facility] Address: , , Performed By: #### G LUCOMETER #### [facility] Monocytes/100 WBC (Bld) 7.5 % Normal 4.0-12.7 [facility] Comment on above: Order Comment: Speci men Type: Unknown Relevant Clinical Information: Altered mental status, hypoglycemia, hypothermia Ordering Facility: [facility] Address: , , Performed By: #### G LUCOMETER #### [facility] Neutrophils Absolute Auto 7.89 10*3/uL High 1.70-7.00 [facility] Comment on above: Order Comment: Speci men Type: Unknown Relevant Clinical Information: Altered mental status, hypoglycemia, hypothermia Ordering Facility: [facility] Address: , , Performed By: #### G LUCOMETER #### [facility] Neutrophils/100 WBC (Bld) 76.6 % High 41.1-75.9 [facility] Comment on above: Order Comment: Speci men Type: Unknown Relevant Clinical Information: Altered mental status, hypoglycemia, hypothermia Ordering Facility: [facility] Address: , , Performed By: #### G LUCOMETER #### [facility] Platelet mean volume (Bld) [Entitic vol] 11.3 fL Normal 8.6-12.2 [facility] Comment on above: Order Comment: Speci men Type: Unknown Relevant Clinical Information: Altered mental status, hypoglycemia, hypothermia Ordering Facility: [facility] Address: , , Performed By: #### G LUCOMETER #### [facility] Platelets (Bld) [#/Vol] 220 10*3/uL Normal 133-425 [facility] Comment on above: Order Comment: Speci men Type: Unknown Relevant Clinical Information: Altered mental status, hypoglycemia, hypothermia Ordering Facility: [facility] Address: , , Performed By: #### G LUCOMETER #### [facility] RBC (Bld) [#/Vol] 3.71 10*6/uL Low 3.90-5.90 [facility] Comment on above: Order Comment: Speci men Type: Unknown Relevant Clinical Information: Altered mental status, hypoglycemia, hypothermia Ordering Facility: [facility] Address: , , Performed By: #### G LUCOMETER #### [facility] WBC (Bld) [#/Vol] 10.3 10*3/uL Normal 4.5-11.0 [facility] Comment on above: Order Comment: Speci men Type: Unknown Relevant Clinical Information: Altered mental status, hypoglycemia, hypothermia Ordering Facility: [facility] Address: , , Performed By: #### G LUCOMETER #### [facility] Comprehensive Metabolic Pane velasquez 08-03-2023 Albumin [Mass/Vol] 2.9 g/dL Low 3.4-5.0 [facility] Comment on above: Order Comment: Speci men Type: Unknown Relevant Clinical Information: Altered mental status, hypoglycemia, hypothermia Ordering Facility: [facility] Lab-CLIA#[id number] Address: [address] [place] [address] Performed By: #### M Deacon, CMP #### [facility] Lab-CLIA#[id number] CLIA [id number] [address] [place] [address] Phil Franklin DO,NATHANAP ALP [Catalytic activity/Vol] 100 U/L Normal 46-116 [facility] Comment on above: Order Comment: Speci men Type: Unknown Relevant Clinical Information: Altered mental status, hypoglycemia, hypothermia Ordering Facility: [facility] Lab-CLIA#[id number] Address: [address] [place] [address] Performed By: #### Aislinn Worthy, CMP #### [facility] Lab-CLIA#[id number] CLIA [id number] [address] [place] [address] Vincent Randaisi, DO,FCAP ALT [Catalytic activity/Vol] 16 U/L Normal 10-49 [facility] Comment on above: Order Comment: Speci men Type: Unknown Relevant Clinical Information: Altered mental status, hypoglycemia, hypothermia Ordering Facility: [facility] Lab-CLIA#[id number] Address: [address] [place] [address] Performed By: #### Aislinn Worthy, CMP #### [facility] Lab-CLIA#[id number] CLIA [id number] [address] [place] [address] Vincent Randaisi, DO,FCAP Anion gap [Moles/Vol] 12 mmol/L Normal 7-17 [facility] Comment on above: Order Comment: Speci men Type: Unknown Relevant Clinical Information: Altered mental status, hypoglycemia, hypothermia Ordering Facility: [facility] Lab-CLIA#[id number] Address: [address] [place] [address] Performed By: #### Aislinn Worthy, CMP #### [facility] Lab-CLIA#[id number] CLIA [id number] [address] [place] [address] Vincent Randaisi, DO,FCAP AST [Catalytic activity/Vol] 16 U/L Normal <34 [facility] Comment on above: Order Comment: Speci men Type: Unknown Relevant Clinical Information: Altered mental status, hypoglycemia, hypothermia Ordering Facility: [facility] Lab-CLIA#[id number] Address: [address] [place] [address] Performed By: #### Aislinn Worthy, CMP #### [facility] Lab-CLIA#[id number] CLIA [id number] [address] [place] [address] Vincrony Franklin, DO,FCAP Bilirubin [Mass/Vol] 0.3 mg/dL Normal 0.3-1.2 [facility] Comment on above: Order Comment: Speci men Type: Unknown Relevant Clinical Information: Altered mental status, hypoglycemia, hypothermia Ordering Facility: [facility] Lab-CLIA#[id number] Address: [address] [place] [address] Performed By: #### Aislinn Worthy, CMP #### [facility] Lab-CLIA#[id number] CLIA [id number] [address] [place] [address] Phil Franklin, DO,FCAP Calcium [Mass/Vol] 8.2 mg/dL Low 8.3-10.6 [facility] Comment on above: Order Comment: Speci men Type: Unknown Relevant Clinical Information: Altered mental status, hypoglycemia, hypothermia Ordering Facility: [facility] Lab-CLIA#[id number] Address: [address] [place] [address] Performed By: #### Aislinn Worthy, CMP #### [facility] Lab-CLIA#[id number] CLIA [id number] [address] [place] [address] Phil Franklin, DO,FCAP Chloride [Moles/Vol] 111 mmol/L High 98-107 [facility] Comment on above: Order Comment: Speci men Type: Unknown Relevant Clinical Information: Altered mental status, hypoglycemia, hypothermia Ordering Facility: [facility] Lab-CLIA#[id number] Address: [address] [place] [address] Performed By: #### Aislinn Worthy, CMP #### [facility] Lab-CLIA#[id number] CLIA [id number] [address] [place] [address] Phil Dialsi, DO,FCAP CO2 [Moles/Vol] 22 mmol/L Normal 20-31 [facility] Comment on above: Order Comment: Speci men Type: Unknown Relevant Clinical Information: Altered mental status, hypoglycemia, hypothermia Ordering Facility: [facility] Lab-CLIA#[id number] Address: [address] [place] [address] Performed By: #### Aislinn Worthy, CMP #### [facility] Lab-CLIA#[id number] CLIA [id number] [address] [place] [address] Phil Franklin DO,FCAP Creatinine [Mass/Vol] 2.348 mg/dL High 0.70-1.30 So [facility] Comment on above: Order Comment: Speci men Type: Unknown Relevant Clinical Information: Altered mental status, hypoglycemia, hypothermia Ordering Facility: [facility] Lab-CLIA#[id number] Address: [address] [place] [address] Performed By: #### Aislinn Worthy, CMP #### [facility] Lab-CLIA#[id number] CLIA [id number] [address] [place] [address] Phil Franklin DO,FCAP Creatinine [facility] [address] [place] [address] Comment on above: Order Comment: Speci men Type: Unknown Relevant Clinical Information: Altered mental status, hypoglycemia, hypothermia Ordering Facility: [facility] Lab-CLIA#[id number] Address: [address] [place] [address] Performed By: #### Aislinn Worthy, CMP #### [facility] Lab-CLIA#[id number] CLIA [id number] [address] [place] [address] Phil Franklin DO,FCAP GFR/1.73 sq M.predicted MDRD (S/P/Bld) [Vol rate/Area] 31 mL/min/{1.73_m2} [facility] Comment on above: Order Comment: Speci men Type: Unknown Relevant Clinical Information: Altered mental status, hypoglycemia, hypothermia Ordering Facility: [facility] Lab-CLIA#[id number] Address: [address] [place] [address] Result Comment: K/DO QI Guideline: Stage 1 >/=90 mL/min/1.73m2 - Not Consistent with CKD Stage 2 60-89 mL/min/1.73m2 - Consistent with Mild CKD Stage 3 30-59 mL/min/1.73m2 - Consistent with Moderate CKD Stage 4 15-29 mL/min/1.73m2 - Consistent with Severe CKD Stage 5 <15 mL/min/1.73m2 - Consistent with Kidney Failure Estimated Glomerular Filtration Rate (eGFR) is a calculated value utilizing the MDRD equation and provides an estimate of renal function. The equation assumes a steady state and should not be used for patients that meet any of the following criteria: - Are younger than 18 or older than 70 - Have rapidly fluctuating kidney function - Are - Have serious comorbid conditions - Have extremes of body size - Have extremes of muscle mass - Have extremes of nutritional status - Are non- or non- - Have normal kidney function Performed By: #### Aislinn Worthy, CMP #### [facility] Lab-CLIA#[id number] CLIA [id number] [address] [place] [address] Phil Franklin DO,FCAP Glucose [Mass/Vol] 147 mg/dL High 74-106 Averye tanya [facility] Comment on above: Order Comment: Speci men Type: Unknown Relevant Clinical Information: Altered mental status, hypoglycemia, hypothermia Ordering Facility: [facility] Lab-CLIA#[id number] Address: [address] [place] [address] Performed By: #### Aislinn Worthy, CMP #### [facility] Lab-CLIA#[id number] CLIA [id number] [address] [place] [address] Phil Franklin DO,FCAP Potassium [Moles/Vol] 4.6 mmol/L Normal 3.5-5.1 Gauri sen [facility] Comment on above: Order Comment: Speci men Type: Unknown Relevant Clinical Information: Altered mental status, hypoglycemia, hypothermia Ordering Facility: [facility] Lab-CLIA#[id number] Address: [address] [place] [address] Performed By: #### Aislinn Worthy, CMP #### [facility] Lab-CLIA#[id number] CLIA [id number] [address] [place] [address] Phil Franklin DO,FCAP Protein [Mass/Vol] 5.4 g/dL Low 5.7-8.2 Dori martínez [facility] Comment on above: Order Comment: Speci men Type: Unknown Relevant Clinical Information: Altered mental status, hypoglycemia, hypothermia Ordering Facility: [facility] Lab-CLIA#[id number] Address: [address] [place] [address] Performed By: #### Aislinn Worthy, CMP #### [facility] Lab-CLIA#[id number] CLIA [id number] [address] [place] [address] Phil Franklin DO,FCAP Sodium [Moles/Vol] 140 mmol/L Normal 136-145 Dori martínez [facility] Comment on above: Order Comment: Speci men Type: Unknown Relevant Clinical Information: Altered mental status, hypoglycemia, hypothermia Ordering Facility: [facility] Lab-CLIA#[id number] Address: [address] [place] [address] Performed By: #### Aislinn Worthy, CMP #### [facility] Lab-CLIA#[id number] CLIA [id number] [address] [place] [address] Phil Franklin DO,FCAP Urea nitrogen [Mass/Vol] 50 mg/dL High 9- [facility] Comment on above: Order Comment: Speci men Type: Unknown Relevant Clinical Information: Altered mental status, hypoglycemia, hypothermia Ordering Facility: [facility] Lab-CLIA#[id number] Address: [address] [place] [address] Performed By: #### Aislinn Worthy, CMP #### [facility] Lab-CLIA#[id number] CLIA [id number] [address] [place] [address] Phil Franklin DO,FCAP Eosinophils Auto (Bld) [#/Vo l]Ordered By: Helen Jovel on 08-03-2023 Eosinophils (Bld) [#/Vol] 0.31 10*3/uL 0.00-0.50 [facility] Eosinophils/100 WBC Auto (Bl d)Ordered By: Helen Jovel on 08-03-2023 Eosinophils/100 WBC (Bld) 3.0 % 0.0-5.8 [facility] Comment on above: Delta: 2.0 on Erythrocyte distribution wid th Auto (RBC) [Ratio]Ordered By: Helen Jovel on 08-03-2023 Erythrocyte distribution width (RBC) [Ratio] 13.2 % 11.6-14.8 [facility] Glomerular filtration rate ( GFR) estimation/1.73 sq m using creatinine measurement wiOrdered By: Helen Jovel on 08-03-2023 GFR/1.73 sq M.predicted CKD-EPI (S/P/Bld) [Vol rate/Area] 31 mL/min >60 [facility] Comment on above: K/DOQI Guideline:Sta ge 1 >/=90 mL/min/1.73m2 - Not Consistent with CKDStage 2 60-89 mL/min/1.73m2 - Consistent with Mild CKDStage 3 30-59 mL/min/1.73m2 - Consistent with Moderate CKDStage 4 15-29 mL/min/1.73m2 - Consistent with Severe CKDStage 5 <15 mL/min/1.73m2 - Consistent with Kidney FailureEstimated Glomerular Filtration Rate (eGFR) is a calculated value utilizing the MDRD equation and provides an estimate of renal function. The equation assumes a steady state and should not be used for patients that meet any of the following criteria:- Are younger than 18 or older than 70- Have rapidly fluctuating kidney function- Are - Have serious comorbid conditions- Have extremes of body size- Have extremes of muscle mass - Have extremes of nutritional status- Are non- or non-- Have normal kidney function Glucometer POCon 08-03-2023 Glucose [Mass/Vol] 339 mg/dL High 70-110 Dori martínez [facility] Comment on above: Order Comment: Speci men Type: Unknown Relevant Clinical Information: Altered mental status, hypoglycemia, hypothermia Ordering Facility: [facility] Lab-CLIA#[id number] Address: [address] [place] [address] Performed By: #### Aislinn Worthy, CMP #### [facility] Lab-CLIA#[id number] CLIA [id number] [address] [place] [address] Phil Franklin, DO,FCAP Glucose [Mass/Vol] 165 mg/dL High 70-110 Dori martínez [facility] Comment on above: Order Comment: Speci men Type: Unknown Relevant Clinical Information: Altered mental status, hypoglycemia, hypothermia Ordering Facility: [facility] Address: , , Performed By: #### G LUCOMETER #### [facility] Glucose [Mass/Vol] 381 mg/dL High 70-110 Dori martínez [facility] Comment on above: Order Comment: Speci men Type: Unknown Relevant Clinical Information: Altered mental status, hypoglycemia, hypothermia Ordering Facility: [facility] Address: , , Performed By: #### G LUCOMETER #### [facility] Glucose Glucometer (BldC) [M ass/Vol]Ordered By: Harjeet Ruelas on 08-03-2023 Glucose [Mass/Vol] 339 mg/dL 70-110 Dori [facility] Hematocrit Auto (Bld) [Volum e fraction]Ordered By: Helen Jovel on 08-03-2023 Hematocrit (Bld) [Volume fraction] 34.3 % 41.0-53.0 [facility] Laboratory - Chemistry and C hemistry - challengeOrdered By: Helen Jovel on 08-03-2023 Anion gap [Moles/Vol] 12 mmol/L 7-17 [facility] Lymphocytes/100 WBC Auto (Bl d)Ordered By: Helen Jovel on 08-03-2023 Lymphocytes/100 WBC (Bld) 12.2 % 13.4-45.1 [facility] Comment on above: Delta: 6.3 on -4 MCH Auto (RBC) [Entitic mass ]Ordered By: Helen Jovel on 08-03-2023 MCH (RBC) [Entitic mass] 31.5 pg 27.2-33.0 [facility] MCHC Auto (RBC) [Mass/Vol]Or dered By: Helen Jovel on 08-03-2023 MCHC (RBC) [Mass/Vol] 34.1 g/dL 31.9-35.1 [facility] MCV (mean corpuscular volume ) determinationOrdered By: Helen Jovel on 08-03-2023 MCV (RBC) [Entitic vol] 92.5 fL 81.7-97.1 [facility] Comment on above: Delta: 89.8 on 08/02 Magnesiumon 08-03-2023 Magnesium [Mass/Vol] 1.9 mg/dL Normal 1.6-2.6 [facility] Comment on above: Order Comment: Speci men Type: Unknown Relevant Clinical Information: Altered mental status, hypoglycemia, hypothermia Ordering Facility: [facility] Lab-CLIA#[id number] Address: [address] [place] [address] Performed By: #### M Deacon, CMP #### [facility] Lab-CLIA#[id number] CLIA [id number] [address] [place] [address] Phil Franklin DO,JANET Monocytes Auto (Bld) [#/Vol] Ordered By: Helen Jovel on 08-03-2023 Monocytes (Bld) [#/Vol] 0.77 10*3/uL 0.30-0.90 [facility] Comment on above: Delta: 0.50 on 08/02 Monocytes/100 WBC Auto (Bld) Ordered By: Helen Jovel on 08-03-2023 Monocytes/100 WBC (Bld) 7.5 % 4.0-12.7 [facility] Comment on above: Delta: 3.4 on Neutrophils Auto (Bld) [#/Vo l]Ordered By: Helen Jovel on 08-03-2023 Neutrophils (Bld) [#/Vol] 7.89 10*3/uL 1.70-7.00 [facility] Comment on above: Delta: 12.71 on 07/15 Neutrophils/100 WBC Auto (Bl d)Ordered By: Helen Jovel on 08-03-2023 Neutrophils/100 WBC (Bld) 76.6 % 41.1-75.9 [facility] No Panel InformationOrdered By: Helen Jovel on 10-21-2023 Pharmacy Creatinine Clearance (Chem 36 [facility] Platelet mean volume Auto (B ld) [Entitic vol]Ordered By: Helen Jovel on 08-03-2023 Platelet mean volume (Bld) [Entitic vol] 11.3 fL 8.6-12.2 [facility] Platelets Auto (Bld) [#/Vol] Ordered By: Helen Jovel on 08-03-2023 Platelets (Bld) [#/Vol] 220 10*3/uL 133-425 [facility] RBC Auto (Bld) [#/Vol]Ordere d By: Helen Jovel on 08-03-2023 RBC (Bld) [#/Vol] 3.71 10*6/uL 3.90-5.90 [facility] Serum or plasma alanine walton otransferase measurement with P-5'-P (enzymatic activity/Ordered By: Helen Jovel on 08-03-2023 ALT With P-5'-P [Catalytic activity/Vol] 16 U/L 10-49 [facility] Serum or plasma albumin regi urement by bromocresol purple (BCP) dye binding method (mOrdered By: Helen Jovel on 08-03-2023 Albumin BCP dye [Mass/Vol] 2.9 g/dL 3.4-5.0 [facility] Serum or plasma alkaline mari sphatase measurement (enzymatic activity/volume)Ordered By: Helen Jovel on 08-03-2023 ALP [Catalytic activity/Vol] 100 U/L 46-116 [facility] Serum or plasma aspartate am inotransferase measurement with P-5'-P (enzymatic activitOrdered By: Helen Jovel on 08-03-2023 AST With P-5'-P [Catalytic activity/Vol] 16 U/L 0-33 [facility] Serum or plasma calcium regi urement (mass/volume)Ordered By: Helen Jovel on 08-03-2023 Calcium [Mass/Vol] 8.2 mg/dL 8.3-10.6 [facility] Serum or plasma chloride taryn surement (moles/volume)Ordered By: Helen Jovel on 08-03-2023 Chloride [Moles/Vol] 111 mmol/L 98-107 [facility] Serum or plasma creatinine m easurement (mass/volume)Ordered By: Helen Jovel on 08-03-2023 Creatinine [Mass/Vol] 2.348 mg/dL 0.70-1.30 So [facility] Serum or plasma glucose regi urement (mass/volume)Ordered By: Helen Jovel on 08-03-2023 Glucose [Mass/Vol] 147 mg/dL 74-106 Dori martínez [facility] Comment on above: Delta: 30 on 3-0424 Serum or plasma magnesium me asurement (mass/volume)Ordered By: Helen Jovel on 08-03-2023 Magnesium [Mass/Vol] 1.9 mg/dL 1.6-2.6 [facility] Serum or plasma potassium me asurement (moles/volume)Ordered By: Helen Jovel on 08-03-2023 Potassium [Moles/Vol] 4.6 mmol/L 3.5-5.1 [facility] Serum or plasma sodium measu rement (moles/volume)Ordered By: Helen Jovel on 08-03-2023 Sodium [Moles/Vol] 140 mmol/L 136-145 Dori martínez [facility] Serum or plasma total biliru bin measurement (mass/volume)Ordered By: Helen Jovel on 08-03-2023 Bilirubin [Mass/Vol] 0.3 mg/dL 0.3-1.2 [facility] Serum or plasma total carbon dioxide measurement (moles/volume)Ordered By: Helen Jovel on 08-03-2023 CO2 [Moles/Vol] 22 mmol/L [facility] Serum or plasma urea nitroge n measurement (mass/volume)Ordered By: Helen Jovel on 08-03-2023 Urea nitrogen [Mass/Vol] 50 mg/dL 07-06 [facility] Serum total protein measurem ent (mass/volume)Ordered By: Helen Jovel on 08-03-2023 Protein [Mass/Vol] 5.4 g/dL 5.7-8.2 Dori [facility] WBC Auto (Bld) [#/Vol]Ordere d By: Helen Jovel on 08-03-2023 WBC (Bld) [#/Vol] 10.3 10*3/uL 4.5-11.0 [facility] Comment on above: Delta: 14.5 on 08/02-423 Absolute lymphocyte countOrd ered By: Christopher Santiago on 08-02-2023 Lymphocytes Auto (Unsp spec) [#/Vol] 0.92 10*3/uL 0.80-3.30 [facility] Amphetamine Screen Ql (U)Ord ered By: Helen Jovel on 08-02-2023 Amphetamines Ql (U) Not detected None Detect [facility] Comment on above: Cutoff: 500ng/mL Appearance urOrdered By: Lety Jovel on 08-02-2023 Appearance (U) Clear Clear [facility] Arterial Blood Gason 023 Glucose [Mass/Vol] 39 mg/dL Critically low 70-110 So [facility] Comment on above: Order Comment: Speci men Type: Unknown Relevant Clinical Information: low gluc Ordering Facility: [facility] Lab-CLIA#[id number] Address: [address] [place] [address] Performed By: #### A BG #### [facility] Lab-CLIA#[id number] CLIA [id number] [address] [place] [address] Phil Franklin DO,FCAP Hemoglobin (Bld) [Mass/Vol] 14.0 g/dL Normal 12.2-18.1 [facility] Comment on above: Order Comment: Speci men Type: Unknown Relevant Clinical Information: low gluc Ordering Facility: [facility] Lab-CLIA#[id number] Address: [address] [place] [address] Performed By: #### A BG #### [facility] Lab-CLIA#[id number] CLIA [id number] [address] [place] [address] Phil Franklin DO,FCAP Normalized Ionized Calcium 1.19 mmol/L Normal 1.01-1.33 [facility] Comment on above: Order Comment: Speci men Type: Unknown Relevant Clinical Information: low gluc Ordering Facility: [facility] Lab-CLIA#[id number] Address: [address] [place] [address] Performed By: #### A BG #### [facility] Lab-CLIA#[id number] CLIA [id number] [address] [place] [address] Phil Franklin, DO,FCAP Arterial Blood Methemoglobin 0.3 % Normal 0.0-0.3 [facility] Comment on above: Order Comment: Speci men Type: Unknown Relevant Clinical Information: low gluc Ordering Facility: [facility] Lab-CLIA#[id number] Address: [address] [place] [address] Performed By: #### A BG #### [facility] Lab-CLIA#[id number] CLIA [id number] [address] [place] [address] Phil Franklin, DO,FCAP Arterial Lactate 0.7 mmol/L Normal 0.5-1.6 [facility] Comment on above: Order Comment: Speci men Type: Unknown Relevant Clinical Information: low gluc Ordering Facility: [facility] Lab-CLIA#[id number] Address: [address] [place] [address] Performed By: #### A BG #### [facility] Lab-CLIA#[id number] CLIA [id number] [address] [place] [address] Phil Franklin, DO,FCAP Base Excess ABG -3.6 mmol/L Normal [facility] Comment on above: Order Comment: Speci men Type: Unknown Relevant Clinical Information: low gluc Ordering Facility: [facility]IA#[id number] Address: [address] [place] [address] Performed By: #### A BG #### [facility]#[id number] CLIA [id number] [address] [place] [address] Vincrony Franklin, DO,FCAP Carboxyhemoglobin 4.1 % High 0.1-2.5 [facility] Comment on above: Order Comment: Speci men Type: Unknown Relevant Clinical Information: low gluc Ordering Facility: [facility]CLIA#[id number] Address: [address] [place] [address] Performed By: #### A BG #### [facility]#[id number] CLIA [id number] [address] [place] [address] Phil Franklin DO,FCAP Fractionated Inspired Oxygen 21 % Normal [facility] Comment on above: Order Comment: Speci men Type: Unknown Relevant Clinical Information: low gluc Ordering Facility: [facility]CLIA#[id number] Address: [address] [place] [address] Performed By: #### A BG #### [facility]#[id number] CLIA [id number] [address] [place] [address] Phil Franklin DO,FCAP HCO3 (Bld) [Moles/Vol] 22 mmol/L Normal 22-26 [facility] Comment on above: Order Comment: Speci men Type: Unknown Relevant Clinical Information: low gluc Ordering Facility: [facility]CLIA#[id number] Address: [address] [place] [address] Performed By: #### A BG #### [facility]#[id number] CLIA [id number] [address] [place] [address] Phil Franklin DO,FCAP Oxygen Content ABG 17.9 mL/dL Normal 17-100 [facility] Comment on above: Order Comment: Speci men Type: Unknown Relevant Clinical Information: low gluc Ordering Facility: [facility]IA#[id number] Address: [address] [place] [address] Performed By: #### A BG #### [facility]#[id number] CLIA [id number] [address] [place] [address] Phil Dialsi, DO,FCAP Oxygen Saturation ABG 95.1 % Low 96-97 [facility] Comment on above: Order Comment: Speci men Type: Unknown Relevant Clinical Information: low gluc Ordering Facility: [facility]IA#[id number] Address: [address] [place] [address] Performed By: #### A BG #### [facility]#[id number] CLIA [id number] [address] [place] [address] Phil Franklin, DO,FCAP PCO2 ABG 41 mm[Hg] Normal 32-53 [facility] Comment on above: Order Comment: Speci men Type: Unknown Relevant Clinical Information: low gluc Ordering Facility: [facility]#[id number] Address: [address] [place] [address] Performed By: #### A BG #### [facility]#[id number] CLIA [id number] [address] [place] [address] Vincrony Dialsi, DO,FCAP PO2 ABG 82.2 mm[Hg] Normal 80-110 [facility] Comment on above: Order Comment: Speci men Type: Unknown Relevant Clinical Information: low gluc Ordering Facility: [facility]IA#[id number] Address: [address] [place] [address] Performed By: #### A BG #### [facility]#[id number] CLIA [id number] [address] [place] [address] Phil Dialsi, DO,FCAP Potassium [Moles/Vol] 4.5 mmol/L Normal 3.5-5.1 [facility] Comment on above: Order Comment: Speci men Type: Unknown Relevant Clinical Information: low gluc Ordering Facility: [facility]CLIA#[id number] Address: [address] [place] [address] Performed By: #### A BG #### [facility]#[id number] CLIA [id number] [address] [place] [address] Phil Franklin DO,FCAP Sodium [Moles/Vol] 139 mmol/L Normal 136-145 [facility] Comment on above: Order Comment: Speci men Type: Unknown Relevant Clinical Information: low gluc Ordering Facility: [facility]CLIA#[id number] Address: [address] [place] [address] Performed By: #### A BG #### [facility]#[id number] CLIA [id number] [address] [place] [address] Phil Franklin DO,FCAP Arterial Blood pH 7.34 Low 7.35-7.45 [facility] Comment on above: Order Comment: Speci men Type: Unknown Relevant Clinical Information: low gluc Ordering Facility: [facility]#[id number] Address: [address] [place] [address] Performed By: #### A BG #### [facility]#[id number] CLIA [id number] [address] [place] [address] Phil Franklin DO,FCAP Arterial blood methemoglobin /total hemoglobinOrdered By: Christopher Santiago on 08-02-2023 Methemoglobin (BldA) [Mass fraction] 0.3 % 0.0-0.3 [facility] Arterial blood oxygen measur ementOrdered By: Christopher Santiago on 08-02-2023 Oxygen content (BldA) [Moles/Vol] 17.9 mL/dL 17-100 [facility] Arterial whole blood lactic acid measurement (moles/volume)Ordered By: Christopher Santiago on 08-02-2023 Lactate (BldA) [Moles/Vol] 0.7 mmol/L 0.5-1.6 [facility] Automated bacteria count in urine sediment (number/area)Ordered By: Helen Jovel on 08-02-2023 Bacteria Auto (Urine sed) [#/Area] None None [facility] Automated erythrocytes count in urine sediment (number/area)Ordered By: Helen Jovel on 08-02-2023 RBC Auto (Urine sed) [#/Area] 1 /HPF 0-5 [facility] Automated non-squamous epith elial cells count in urine sediment (number/area)Ordered By: Helen Jovel on 08-02-2023 Epithelial cells.non-squamous Auto (Urine sed) [#/Area] 0 /HPF 0-4 [facility] Automated urine leukocytes c ount (number/volume)Ordered By: Helen Jovel on 08-02-2023 WBC Auto (U) [#/Vol] 0 /HPF 0-4 [facility] Base excess Calc (BldA) [Mol es/Vol]Ordered By: Christopher Santiago on 08-02-2023 Base excess Calc (Bld) [Moles/Vol] -3.6000 mmol/L [facility] Basic Metabolic Panelon 07-15 Glucose [Mass/Vol] 30 mg/dL Critically low 74-106 [facility] Comment on above: Order Comment: Speci men Type: Unknown Relevant Clinical Information: Altered mental status, hypoglycemia, hypothermia Ordering Facility: [facility]CLIA#[id number] Address: [address] [place] [address] Performed By: #### Aislinn Worthy, CMP #### [facility]#[id number] CLIA [id number] [address] [place] [address] Phil Franklin DO,FCAP Anion gap [Moles/Vol] 11 mmol/L Normal 7-17 [facility] Comment on above: Order Comment: Speci men Type: Unknown Relevant Clinical Information: Altered mental status, hypoglycemia, hypothermia Ordering Facility: [facility]CLIA#[id number] Address: [address] [place] [address] Performed By: #### Aislinn Worthy, CMP #### [facility]#[id number] CLIA [id number] [address] [place] [address] Phil Franklin DO,FCAP Calcium [Mass/Vol] 9.4 mg/dL Normal 8.3-10.6 [facility] Comment on above: Order Comment: Speci men Type: Unknown Relevant Clinical Information: Altered mental status, hypoglycemia, hypothermia Ordering Facility: [facility]#[id number] Address: [address] [place] [address] Performed By: #### Aislinn Worthy, CMP #### [facility]#[id number] CLIA [id number] [address] [place] [address] Vincent Randaisi, DO,FCAP Chloride [Moles/Vol] 106 mmol/L Normal 98-107 [facility] Comment on above: Order Comment: Speci men Type: Unknown Relevant Clinical Information: Altered mental status, hypoglycemia, hypothermia Ordering Facility: [facility]IA#[id number] Address: [address] [place] [address] Performed By: #### Aislinn Worthy, CMP #### [facility]#[id number] CLIA [id number] [address] [place] [address] Vincent Randaisi, DO,FCAP CO2 [Moles/Vol] 26 mmol/L Normal 20-31 [facility] Comment on above: Order Comment: Speci men Type: Unknown Relevant Clinical Information: Altered mental status, hypoglycemia, hypothermia Ordering Facility: [facility]IA#[id number] Address: [address] [place] [address] Performed By: #### Aislinn Worthy, CMP #### [facility]#[id number] CLIA [id number] [address] [place] [address] Vincent Randaisi, DO,FCAP Creatinine [Mass/Vol] 2.585 mg/dL High 0.70-1.30 [facility] Comment on above: Order Comment: Speci men Type: Unknown Relevant Clinical Information: Altered mental status, hypoglycemia, hypothermia Ordering Facility: [facility]CLIA#[id number] Address: [address] [place] [address] Performed By: #### Aislinn Worthy, CMP #### [facility]#[id number] CLIA [id number] [address] [place] [address] Phil Franklin DO,FCAP Creatinine Clr Calc Pharmacy 32 Normal [facility] Comment on above: Order Comment: Speci men Type: Unknown Relevant Clinical Information: Altered mental status, hypoglycemia, hypothermia Ordering Facility: [facility]CLIA#[id number] Address: [address] [place] [address] Performed By: #### Aislinn Worthy, CMP #### [facility]#[id number] CLIA [id number] [address] [place] [address] Phil Franklin DO,FCAP GFR/1.73 sq M.predicted MDRD (S/P/Bld) [Vol rate/Area] 28 mL/min/{1.73_m2} [facility] Comment on above: Order Comment: Speci men Type: Unknown Relevant Clinical Information: Altered mental status, hypoglycemia, hypothermia Ordering Facility: [facility]CLIA#[id number] Address: [address] [place] [address] Result Comment: K/DO QI Guideline: Stage 1 >/=90 mL/min/1.73m2 - Not Consistent with CKD Stage 2 60-89 mL/min/1.73m2 - Consistent with Mild CKD Stage 3 30-59 mL/min/1.73m2 - Consistent with Moderate CKD Stage 4 15-29 mL/min/1.73m2 - Consistent with Severe CKD Stage 5 <15 mL/min/1.73m2 - Consistent with Kidney Failure Estimated Glomerular Filtration Rate (eGFR) is a calculated value utilizing the MDRD equation and provides an estimate of renal function. The equation assumes a steady state and should not be used for patients that meet any of the following criteria: - Are younger than 18 or older than 70 - Have rapidly fluctuating kidney function - Are - Have serious comorbid conditions - Have extremes of body size - Have extremes of muscle mass - Have extremes of nutritional status - Are non- or non- - Have normal kidney function Performed By: #### Aislinn Worthy, CMP #### [facility]#[id number] CLIA [id number] [address] [place] [address] Phil Franklin, DO,FCAP Potassium [Moles/Vol] 4.2 mmol/L Normal 3.5-5.1 [facility] Comment on above: Order Comment: Speci men Type: Unknown Relevant Clinical Information: Altered mental status, hypoglycemia, hypothermia Ordering Facility: [facility]IA#[id number] Address: [address] [place] [address] Performed By: #### Aislinn Worthy, CMP #### [facility]#[id number] CLIA [id number] [address] [place] [address] Phil Franklin DO,FCAP Sodium [Moles/Vol] 139 mmol/L Normal 136-145 [facility] Comment on above: Order Comment: Speci men Type: Unknown Relevant Clinical Information: Altered mental status, hypoglycemia, hypothermia Ordering Facility: [facility]IA#[id number] Address: [address] [place] [address] Performed By: #### M G, CMP #### [facility]#[id number] CLIA [id number] [address] [place] [address] Phil Franklin DO,FCAP Urea nitrogen [Mass/Vol] 48 mg/dL High 9-23 [facility] Comment on above: Order Comment: Speci men Type: Unknown Relevant Clinical Information: Altered mental status, hypoglycemia, hypothermia Ordering Facility: [facility]IA#[id number] Address: [address] [place] [address] Performed By: #### Aislinn G, CMP #### [facility]#[id number] CLIA [id number] [address] [place] [address] Phil Franklin, DO,FCAP Basophils Auto (Bld) [#/Vol] Ordered By: Christopher Santiago on 08-02-2023 Basophils (Bld) [#/Vol] 0.04 10*3/uL 0.00-0.10 [facility] Basophils/100 WBC Auto (Bld) Ordered By: Christopher Santiago on 08-02-2023 Basophils/100 WBC (Bld) 0.3 % 0.0-1.3 [facility] Bilirubin Auto test strip Ql (U)Ordered By: Helen Jovel on 08-02-2023 Bilirubin Ql (U) Negative Negative [facility] Blood hemoglobin measurement (mass/volume)Ordered By: Christopher Santiago on 08-02-2023 Hemoglobin (Bld) [Mass/Vol] 14.0 g/dL 13.5-17.7 [facility] C Peptideon 08-02-2023 C Peptide 2.00 ng/mL Normal 0.48-5.05 [facility] Comment on above: Order Comment: Speci men Type: Unknown Relevant Clinical Information: Altered mental status, hypoglycemia, hypothermia Ordering Facility: [facility]IA#[id number] Address: [address] [place] [address] Performed By: #### M G, CMP #### [facility]#[id number] CLIA [id number] [address] [place] [address] Phil Franklin DO,FCAP CBC w/ Auto Diffon 3 Basophils Absolute Auto 0.04 10*3/uL Normal 0.00-0.10 [facility] Comment on above: Order Comment: Speci men Type: Unknown Relevant Clinical Information: low gluc Ordering Facility: [facility]#[id number] Address: [address] [place] [address] Performed By: #### C BC #### [facility]#[id number] CLIA [id number] [address] [place] [address] Phil Franklin DO,FCAP Basophils/100 WBC (Bld) 0.3 % Normal 0.0-1.[address] [facility] Comment on above: Order Comment: Speci men Type: Unknown Relevant Clinical Information: low gluc Ordering Facility: [facility]#[id number] Address: [address] [place] [address] Performed By: #### C BC #### [facility]#[id number] CLIA [id number] [address] [place] [address] Phil Franklin DO,FCAP Eosinophils (Bld) [#/Vol] 0.29 10*3/uL Normal 0.00-0.50 [facility] Comment on above: Order Comment: Speci men Type: Unknown Relevant Clinical Information: low gluc Ordering Facility: [facility]#[id number] Address: [address] [place] [address] Performed By: #### C BC #### [facility]#[id number] CLIA [id number] [address] [place] [address] Phil Franklin DO,FCAP Eosinophils/100 WBC (Bld) 2.0 % Normal 0.0-5.8 [facility] Comment on above: Order Comment: Speci men Type: Unknown Relevant Clinical Information: low gluc Ordering Facility: [facility]#[id number] Address: [address] [place] [address] Performed By: #### C BC #### [facility]#[id number] CLIA [id number] [address] [place] [address] Phil Franklin DO,FCAP Erythrocyte distribution width (RBC) [Ratio] 13.1 % Normal 11.6-14.8 [facility] Comment on above: Order Comment: Speci men Type: Unknown Relevant Clinical Information: low gluc Ordering Facility: [facility]#[id number] Address: [address] [place] [address] Performed By: #### C BC #### [facility]#[id number] CLIA [id number] [address] [place] [address] Phil Franklin DO,FCAP Hematocrit (Bld) [Volume fraction] 40.5 % Low 41.0-53.0 [facility] Comment on above: Order Comment: Speci men Type: Unknown Relevant Clinical Information: low gluc Ordering Facility: [facility]#[id number] Address: [address] [place] [address] Performed By: #### C BC #### [facility]#[id number] CLIA [id number] [address] [place] [address] Vincent Randaisi, DO,FCAP Hemoglobin (Bld) [Mass/Vol] 14.0 g/dL Normal 13.5-17.7 [facility] Comment on above: Order Comment: Speci men Type: Unknown Relevant Clinical Information: low gluc Ordering Facility: [facility]#[id number] Address: [address] [place] [address] Performed By: #### C BC #### [facility]#[id number] CLIA [id number] [address] [place] [address] Vincent Randaisi, DO,FCAP Lymphocytes (Bld) [#/Vol] 0.92 10*3/uL Normal 0.80-3.30 [facility] Comment on above: Order Comment: Speci men Type: Unknown Relevant Clinical Information: low gluc Ordering Facility: [facility]#[id number] Address: [address] [place] [address] Performed By: #### C BC #### [facility]#[id number] CLIA [id number] [address] [place] [address] Vincent Randaisi, DO,FCAP Lymphocytes/100 WBC (Bld) 6.3 % Low 13.4-45.1 [facility] Comment on above: Order Comment: Speci men Type: Unknown Relevant Clinical Information: low gluc Ordering Facility: [facility]#[id number] Address: [address] [place] [address] Performed By: #### C BC #### [facility]#[id number] CLIA [id number] [address] [place] [address] Phil Franklin DO,FCAP MCH (RBC) [Entitic mass] 31.0 pg Normal 27.2-33.0 [facility] Comment on above: Order Comment: Speci men Type: Unknown Relevant Clinical Information: low gluc Ordering Facility: [facility]#[id number] Address: [address] [place] [address] Performed By: #### C BC #### [facility]#[id number] CLIA [id number] [address] [place] [address] Phil Franklin DOFCAP MCHC (RBC) [Mass/Vol] 34.6 g/dL Normal 31.9-35.1 [facility] Comment on above: Order Comment: Speci men Type: Unknown Relevant Clinical Information: low gluc Ordering Facility: [facility]#[id number] Address: [address] [place] [address] Performed By: #### C BC #### [facility]#[id number] CLIA [id number] [address] [place] [address] Phil Franklin DOFCAP MCV (RBC) [Entitic vol] 89.8 fL Normal 81.7-97.1 [facility] Comment on above: Order Comment: Speci men Type: Unknown Relevant Clinical Information: low gluc Ordering Facility: [facility]#[id number] Address: [address] [place] [address] Performed By: #### C BC #### [facility]#[id number] CLIA [id number] [address] [place] [address] Phil Franklin DO,FCAP Monocytes (Bld) [#/Vol] 0.50 10*3/uL Normal 0.30-0.90 [facility] Comment on above: Order Comment: Speci men Type: Unknown Relevant Clinical Information: low gluc Ordering Facility: [facility]#[id number] Address: [address] [place] [address] Performed By: #### C BC #### [facility]#[id number] CLIA [id number] [address] [place] [address] Phil Franklin DO,FCAP Monocytes/100 WBC (Bld) 3.4 % Low 4.0-12.[address] [facility] Comment on above: Order Comment: Speci men Type: Unknown Relevant Clinical Information: low gluc Ordering Facility: [facility]#[id number] Address: [address] [place] [address] Performed By: #### C BC #### [facility]#[id number] CLIA [id number] [address] [place] [address] Phil Franklin DO,FCAP Neutrophils Absolute Auto 12.71 10*3/uL High 1.70-7.00 [facility] Comment on above: Order Comment: Speci men Type: Unknown Relevant Clinical Information: low gluc Ordering Facility: [facility]#[id number] Address: [address] [place] [address] Performed By: #### C BC #### [facility]#[id number] CLIA [id number] [address] [place] [address] Phil Franklin DO,FCAP Neutrophils/100 WBC (Bld) 87.4 % High 41.1-75.9 [facility] Comment on above: Order Comment: Speci men Type: Unknown Relevant Clinical Information: low gluc Ordering Facility: [facility]#[id number] Address: [address] [place] [address] Performed By: #### C BC #### [facility]#[id number] CLIA [id number] [address] [place] [address] Phil Franklin DO,FCAP Platelet mean volume (Bld) [Entitic vol] 11.4 fL Normal 8.6-12.2 [facility] Comment on above: Order Comment: Speci men Type: Unknown Relevant Clinical Information: low gluc Ordering Facility: [facility]#[id number] Address: [address] [place] [address] Performed By: #### C BC #### [facility]#[id number] CLIA [id number] [address] [place] [address] Vincent Jazmineaisi, DO,FCAP Platelets (Bld) [#/Vol] 285 10*3/uL Normal 133-425 [facility] Comment on above: Order Comment: Speci men Type: Unknown Relevant Clinical Information: low gluc Ordering Facility: [facility]#[id number] Address: [address] [place] [address] Performed By: #### C BC #### [facility]#[id number] CLIA [id number] [address] [place] [address] Vincrony Dialsi, DO,FCAP RBC (Bld) [#/Vol] 4.51 10*6/uL Normal 3.90-5.90 [facility] Comment on above: Order Comment: Speci men Type: Unknown Relevant Clinical Information: low gluc Ordering Facility: [facility]#[id number] Address: [address] [place] [address] Performed By: #### C BC #### [facility]#[id number] CLIA [id number] [address] [place] [address] Vincent Randaisi, DO,FCAP WBC (Bld) [#/Vol] 14.5 10*3/uL High 4.5-11.0 [facility] Comment on above: Order Comment: Speci men Type: Unknown Relevant Clinical Information: low gluc Ordering Facility: [facility]#[id number] Address: [address] [place] [address] Performed By: #### C BC #### [facility]#[id number] CLIA [id number] [address] [place] [address] Phil Franklin DO,FCAP CO2 (BldA) [Partial pressure ]Ordered By: Christopher Santiago on 08-02-2023 CO2 (Bld) [Partial pressure] 41 mm[Hg] 32-[address] [facility] [address] biopsyOrdered By: Charo Jovel on 08-02-2023 Benzodiazepines Ql (U) Not detected None Detect [facility] Comment on above: Cutoff: 200ng/mL Cocaine Ql (U) Not detected None Detect [facility] Comment on above: Cutoff: 150ng/mL CT biopsy Not detected None Detect [facility] Comment on above: Cutoff: 200ng/mL CTHEADWOon 08-02-[address] [place] [id number] Scan Report Signed Patient: Chandler Minor MR#: [id number] 02 : 1970 Acct: [id number] Age/Sex: 53 / M ADM Date: 08/02/23 Loc: ER. Attending Dr: Ordering Physician: Christopher Santiago D.O. Date of Service: Procedure(s): CT head-brain wo con Accession Number(s): [id number] cc: Christopher Santiago D.O. CT HEAD TECHNICAL: Contiguous axial imaging from vertex to skull base without contrast administration. Additional coronal and sagittal reformatted imaging was performed. Radiation optimization: CT was performed using one or more of the following dose reduction techniques: Automated exposure control, adjustment of the MA and/or KV according to patient size, and/or use of iterative reconstruction techniques. Contrast Pharmaceutical: None Route of administration: Not applicable COMPARISON: No comparison exams available at the time of dictation. FINDINGS: PARENCHYMA: Atrophy and nonspecific periventricular/subcorti chucho white matter disease. Oval-shaped roughly 3.5 cm hypodense region within the posterior aspect of the left side of the cerebellum. Round 2 cm hypodense region within the posterior aspect of the right-sided cerebellum. CT appearance subacute- chronic infarct. MRI can be obtained to further characterize. VENTRICLES: No midline shift or mass-effect. CALVARIUM: No depressed or widely calvarial fracture. PARANASAL SINUSES/MASTOIDS: Mild chronic sinus disease. Mastoid air cells are aerated and clear. OTHER: Please note MRI is a more sensitive evaluation for the detection of acute trauma or acute stroke, particularly in the first several hours of symptoms and may be considered if clinically warranted. End of Report CT/CT head-brain wo con IMPRESSION: 1. No CT evidence of acute intracranial hemorrhage, midline shift or mass-effect. 2. Hypodense changes within right and left side of the cerebellum. Concerning for underlying infarct. CT appearance suggest subacute-chronic age. Electronically Signed By: Chava Hernandez D.O. 08/02/23 0514 [id number] [facility] CarboxyhemoglobinOrdered By: Christopher Santiago on 08-02-2023 Carboxyhemoglobin (Bld) [Mass/Vol] 4.1 % 0.1-2.5 [facility] Cholesterol in LDL Calc [Mas s/Vol]Ordered By: Marcelino Abel on 08-02-2023 Cholesterol in LDL [Mass/Vol] 28 mg/dL <100 [facility] Determination of inhaled oxy gen concentration (volume fraction)Ordered By: Christopher Santiago on 08-02-2023 Inhaled oxygen concentration 21 % [facility] Direct bilirubin measurement Ordered By: Helen Jovel on 08-02-2023 Bilirubin.direct [Mass/Vol] 0.1 mg/dL 0.0-0.3 [facility] Emergency Department Noteon 08-02-2023 Emergency Department Note [facility] [place] [address] Emergency Department Note Signed Patient: Chandler Minor MR#: [id number] : 1970 Acct: [id number] Age/Sex: 53 / M Date of Service: 08/02/23 Loc: ER.SV Attending Dr: cc: HPI - Altered Mental Status General Chief Complaint: Altered Mental Status Stated Complaint: low gluc Time Seen by Provider: 08/02/23 04:20 Source: EMS Mode of arrival: EMS Limitations: altered mental status History of Present Illness HPI narrative: EMS reports they were called to the patient's residence because of altered mental status and fall. Report from family states that earlier in the evening approximately 9 PM his blood sugar was over 500. States that he administered some insulin and went to sleep. States family then heard him fall in the early hours of this morning and when they went to check on him he was unresponsive so EMS was called. EMS reports whenever they checked a fingerstick it was 50. States that they were not able to start an IV and did not have access to IM glucagon so they gave oral glucose. Upon arrival the patient was received in room #3. His fingerstick for us was 38 and his core temperature was 92.6. Review of Systems ROS: ROS Unobtainable: Yes unobtainable due to mental status [facility] Medical History (Updated 08/02/23 @ 05:23 by Christopher Santiago DO) Diabetes Social History Advance Directives: No Advance Directives Information Provided: No Advance Directives on File: No Would like to be referred to Health Education Coordinator for info?: No Smoking Status: Never smoker (Updated 08/02/23 @ 05:23 by Christopher Santiago DO) Diabetes Exam Const Exam limitations: altered mental status General appearance: lethargic Nutritional appearance: obese Orientation/consciousnes s: lethargic Accompanied by: nobody Other: Patient was initially lethargic and not interactive however after initiation of peripheral IV and dextrose the patient is awake and answers questions and follows commands. HEENT Common normals: normocephalic, atraumatic, external ears normal and Normal external nose present Head and scalp: normocephalic and atraumatic Face and sinus: normal facial exam Nose: Normal external nose present External ear: external ears normal Other: Moist mucous membranes Eye Common normals: Equal, round and reactive pupils present (3 mm reactive bilaterally) and conjunctivae normal Periorbital: periorbital findings normal Eyelid: eyelids normal Conjunctiva: conjunctivae normal Pupil: Equal, round and reactive pupils present (3 mm reactive bilaterally) Neck C-Spine Common normals: full ROM and supple Other: No obvious signs of trauma. Respiratory Common normals: normal respiratory effort and clear to auscultation bilaterally Auscultation: clear to auscultation bilaterally, no rales, no rhonchi and no wheezes Cardio Common normals: regular rate, regular rhythm, No gallops present (Cardio), No murmurs present (Cardio) and No rub (Cardio) Rate: regular rate Rhythm: regular rhythm GI Common normals: Soft to palpation and non-tender Inspection: No abdominal distension Auscultation: normoactive bowel sounds Palpation: Soft to palpation, No Guarding due to palpation present (GI) and No Rigid due to palpation Extremity Common normals: full ROM, capillary refill normal and no clubbing, cyanosis or edema Other: Patient with prior history of right-sided BKA Neuro Daniel Coma Scale: document GCS findings Daniel Coma Scale Eye Opening: No response Daniel coma scale verbal response: No response Daniel Coma Scale Motor Response: Withdraws in response to pain Washburn coma scale total score: 6 Sensorium/orientation: lethargic Other: Patient's initial GCS was 6. After IV dextrose GCS is now 14. Patient is awake alert does answer questions does move extremities x4. Skin Skin Exam: Limited skin exam was performed of exposed skin area Common normals: Yes no rashes or lesions noted, Yes no jaundice, Yes no petechiae and Yes no mottling General skin exam: no rashes or lesions noted Course Reevaluation(s) Reevaluation #1: After D50 patient is now answering some questions he still appears to be somnolent but he is following commands. Patient's core temp is 92.6. We have instituted external active rewarming measures. Time: 04:26 Reevaluation #2: Patient's repeat rectal temp was 93.7. He continues to be awake and alert. Family is now at bedside. Time: 05:46 Consultations Consultation #1: Discussed case with Dr. Jovel. She recommends discussion with ICU and then to call her back if needed. Time: 05:53 Consultation #2: Discussed case with both Zac Arguello, ICU JULIA and Dr. Jovel. They both agreed to accept patient to the floor. Time: 06:09 Vital Signs Vital signs: Vital S (more content not included)... Normal [facility] Eosinophils Auto (Bld) [#/Vo l]Ordered By: Christopher Santiago on 08-02-2023 Eosinophils (Bld) [#/Vol] 0.29 10*3/uL 0.00-0.50 [facility] Eosinophils/100 WBC Auto (Bl d)Ordered By: Christopher Santiago on 08-02-2023 Eosinophils/100 WBC (Bld) 2.0 % 0.0-5.8 [facility] Erythrocyte distribution wid th Auto (RBC) [Ratio]Ordered By: Christopher Santiago on 08-02-2023 Erythrocyte distribution width (RBC) [Ratio] 13.1 % 11.6-14.8 [facility] Free T4on 08-02-2023 Free T4 [Mass/Vol] 1.16 ng/dL Normal 0.89-1.76 Dori martínez [facility] Comment on above: Order Comment: Speci men Type: Unknown Relevant Clinical Information: Altered mental status, hypoglycemia, hypothermia Ordering Facility: [facility] Address: , , Performed By: #### G LUCOMETER #### [facility] Glomerular filtration rate ( GFR) estimation/1.73 sq m using creatinine measurement wiOrdered By: Christopher Santiago on 08-02-2023 GFR/1.73 sq M.predicted CKD-EPI (S/P/Bld) [Vol rate/Area] 28 mL/min >60 [facility] Comment on above: K/DOQI Guideline:Sta ge 1 >/=90 mL/min/1.73m2 - Not Consistent with CKDStage 2 60-89 mL/min/1.73m2 - Consistent with Mild CKDStage 3 30-59 mL/min/1.73m2 - Consistent with Moderate CKDStage 4 15-29 mL/min/1.73m2 - Consistent with Severe CKDStage 5 <15 mL/min/1.73m2 - Consistent with Kidney FailureEstimated Glomerular Filtration Rate (eGFR) is a calculated value utilizing the MDRD equation and provides an estimate of renal function. The equation assumes a steady state and should not be used for patients that meet any of the following criteria:- Are younger than 18 or older than 70- Have rapidly fluctuating kidney function- Are - Have serious comorbid conditions- Have extremes of body size- Have extremes of muscle mass - Have extremes of nutritional status- Are non- or non-- Have normal kidney function Glucometer POCon 08-02-2023 Glucose [Mass/Vol] 240 mg/dL High 70-110 Dori martínez [facility] Comment on above: Order Comment: Speci men Type: Unknown Relevant Clinical Information: Altered mental status, hypoglycemia, hypothermia Ordering Facility: [facility] Lab-CLIA#[id number] Address: [address] [place] [address] Performed By: #### Aislinn G, CMP #### [facility] Lab-CLIA#[id number] CLIA [id number] [address] [place] [address] Phil Franklin, DO,FCAP Glucose [Mass/Vol] 110 mg/dL Normal 70-110 [facility] Comment on above: Order Comment: Speci men Type: Unknown Relevant Clinical Information: Altered mental status, hypoglycemia, hypothermia Ordering Facility: [facility] Lab-CLIA#[id number] Address: [address] [place] [address] Performed By: #### Aislinn Worthy, CMP #### [facility] Lab-CLIA#[id number] CLIA [id number] [address] [place] [address] Phil Dialsi, DO,FCAP Glucose [Mass/Vol] 117 mg/dL High 70-110 [facility] Comment on above: Order Comment: Speci men Type: Unknown Relevant Clinical Information: Altered mental status, hypoglycemia, hypothermia Ordering Facility: [facility] Lab-CLIA#[id number] Address: [address] [place] [address] Performed By: #### Aislinn G, CMP #### [facility] Lab-CLIA#[id number] CLIA [id number] [address] [place] [address] Vincrony Randaisi, DO,FCAP Glucose [Mass/Vol] 124 mg/dL High 70-110 [facility] Comment on above: Order Comment: Speci men Type: Unknown Relevant Clinical Information: Altered mental status, hypoglycemia, hypothermia Ordering Facility: [facility] Address: , , Performed By: #### G LUCOMETER #### [facility] Glucose [Mass/Vol] 105 mg/dL Normal 70-110 [facility] Comment on above: Order Comment: Speci men Type: Unknown Relevant Clinical Information: Altered mental status, hypoglycemia, hypothermia Ordering Facility: [facility] Lab-CLIA#[id number] Address: [address] [place] [address] Performed By: #### Aislinn Worthy, CMP #### [facility] Lab-CLIA#[id number] CLIA [id number] [address] [place] [address] Vincent Randaisi, DO,FCAP Glucose [Mass/Vol] 102 mg/dL Normal 70-110 [facility] Comment on above: Order Comment: Speci men Type: Unknown Relevant Clinical Information: Altered mental status, hypoglycemia, hypothermia Ordering Facility: [facility] Lab-CLIA#[id number] Address: [address] [place] [address] Performed By: #### Aislinn Worthy, CMP #### [facility] Lab-CLIA#[id number] CLIA [id number] [address] [place] [address] Vincent Randaisi, DO,FCAP Glucose [Mass/Vol] 97 mg/dL Normal 70-110 [facility] Comment on above: Order Comment: Speci men Type: Unknown Relevant Clinical Information: Altered mental status, hypoglycemia, hypothermia Ordering Facility: [facility] Lab-CLIA#[id number] Address: [address] [place] [address] Performed By: #### Aislinn Worthy, CMP #### [facility] Lab-CLIA#[id number] CLIA [id number] [address] [place] [address] Vincent Randaisi, DO,FCAP Glucose [Mass/Vol] 96 mg/dL Normal 70-110 [facility] Comment on above: Order Comment: Speci men Type: Unknown Relevant Clinical Information: Altered mental status, hypoglycemia, hypothermia Ordering Facility: [facility] Lab-CLIA#[id number] Address: [address] [place] [address] Performed By: #### Aislinn Worthy, CMP #### [facility] Lab-CLIA#[id number] CLIA [id number] [address] [place] [address] Vincent Randaisi, DO,FCAP Glucose [Mass/Vol] 111 mg/dL High 70-110 Dori [facility] Comment on above: Order Comment: Speci men Type: Unknown Relevant Clinical Information: Altered mental status, hypoglycemia, hypothermia Ordering Facility: [facility] Lab-CLIA#[id number] Address: [address] [place] [address] Performed By: #### M G, CMP #### [facility] Lab-CLIA#[id number] CLIA [id number] [address] [place] [address] Phil Franklin, DO,FCAP Glucose [Mass/Vol] 156 mg/dL High 70-110 Dori martínez [facility] Comment on above: Order Comment: Speci men Type: Unknown Relevant Clinical Information: Altered mental status, hypoglycemia, hypothermia Ordering Facility: [facility] Address: , , Performed By: #### G LUCOMETER #### [facility] Glucose [Mass/Vol] 55 mg/dL Low 70-110 [facility] Comment on above: Order Comment: Speci men Type: Unknown Relevant Clinical Information: low gluc Ordering Facility: [facility] Address: , , Performed By: #### G LUCOMETER #### [facility] Glucose (Bld) [Mass/Vol]Orde red By: Christopher Santiago on 08-02-2023 Glucose [Mass/Vol] 39 mg/dL 70-110 Dori [facility] Glucose Glucometer (BldC) [M ass/Vol]Ordered By: Christopher Santiago on 08-02-2023 Glucose [Mass/Vol] 102 mg/dL 70-110 Dori [facility] HCO3 (BldA) [Moles/Vol]Order ed By: Christopher Santiago on 08-02-2023 HCO3 (Bld) [Moles/Vol] 22 mmol/L 22-26 So [facility] Hematocrit Auto (Bld) [Volum e fraction]Ordered By: Christopher Santiago on 08-02-2023 Hematocrit (Bld) [Volume fraction] 40.5 % 41.0-53.0 [facility] Hemoglobin A1Con 08-02-2023 HbA1c (Bld) [Mass fraction] 12.0 % High <5.7 [facility] Comment on above: Order Comment: Speci men Type: Unknown Relevant Clinical Information: Altered mental status, hypoglycemia, hypothermia Ordering Facility: [facility] Address: , , Result Comment: Expe cted Values Suggested Diagnosis Diabetic >=6.5 (%) Prediabetes 5.7-6.4 (%) Normal <5.7 (%) Performed By: #### G LUCOMETER #### [facility] Hemoglobin A1c percentageOrd ered By: Helen Jovel on 08-02-2023 HbA1c (Bld) [Mass fraction] 12.0 % 0-5.6 [facility] Comment on above: Expected ValuesSugge sted Diagnosis Diabetic >=6.5 (%)Prediabetes 5.7-6.4 (%)Normal <5.7 (%) Hemoglobin Oximetry (BldA) [ Mass/Vol]Ordered By: Christopher Santiago on 08-02-2023 Hemoglobin (Bld) [Mass/Vol] 14.0 g/dL 12.2-18.1 [facility] Hepatic Function Panelon Albumin [Mass/Vol] 3.1 g/dL Low 3.4-5.0 [facility] Comment on above: Order Comment: Speci men Type: Unknown Relevant Clinical Information: Altered mental status, hypoglycemia, hypothermia Ordering Facility: [facility] Address: , , Performed By: #### G LUCOMETER #### [facility] ALP [Catalytic activity/Vol] 100 U/L Normal 46-116 [facility] Comment on above: Order Comment: Speci men Type: Unknown Relevant Clinical Information: Altered mental status, hypoglycemia, hypothermia Ordering Facility: [facility] Address: , , Performed By: #### G LUCOMETER #### [facility] ALT [Catalytic activity/Vol] 14 U/L Normal 10-49 [facility] Comment on above: Order Comment: Speci men Type: Unknown Relevant Clinical Information: Altered mental status, hypoglycemia, hypothermia Ordering Facility: [facility] Address: , , Performed By: #### G LUCOMETER #### [facility] AST [Catalytic activity/Vol] 18 U/L Normal <34 [facility] Comment on above: Order Comment: Speci men Type: Unknown Relevant Clinical Information: Altered mental status, hypoglycemia, hypothermia Ordering Facility: [facility] Address: , , Performed By: #### G LUCOMETER #### [facility] Bilirubin [Mass/Vol] 0.4 mg/dL Normal 0.3-1.2 [facility] Comment on above: Order Comment: Speci men Type: Unknown Relevant Clinical Information: Altered mental status, hypoglycemia, hypothermia Ordering Facility: [facility] Address: , , Performed By: #### G LUCOMETER #### [facility] Bilirubin.indirect [Mass/Vol] 0.1 mg/dL Normal <0.4 [facility] Comment on above: Order Comment: Speci men Type: Unknown Relevant Clinical Information: Altered mental status, hypoglycemia, hypothermia Ordering Facility: [facility] Address: , , Performed By: #### G LUCOMETER #### [facility] Protein [Mass/Vol] 6.0 g/dL Normal 5.7-8.2 [facility] Comment on above: Order Comment: Speci men Type: Unknown Relevant Clinical Information: Altered mental status, hypoglycemia, hypothermia Ordering Facility: [facility] Address: , , Performed By: #### G LUCOMETER #### [facility] Hyaline casts detection in u rine sediment by light microscopyOrdered By: Helen Jovel on 08-02-2023 Hyaline casts LM Ql (Urine sed) 6 /LPF 0-5 [facility] Internal Med History Physica velasquez 08-02-2023 Internal Med History Physical [facility] Main [address] [address] Internal Med History Physical Signed Patient: Chandler Minor MR#: [id number] : 1970 Acct: [id number] Age/Sex: 53 / M Date of Service: 08/02/23 [facility]: Helen Jovel M.D. cc: Harjeet Ruelas M.D. History of Present Illness History of Present Illness Date of service: 08/02/23 Chief complaint: Altered mental status, hypoglycemia, hypothermia Narrative: Chandler Minor is a 53 year old male current smoker with past medical history of CVA, HTN, type 2 diabetes mellitus, BPH, hypothyroid presented to ED with complaints of altered mental status. Patient is currently alert oriented x3. Patient reports no remembrance of falling down. Patient glucose level was in 500s last night so he took lispro 15 units as per sliding scale protocol and Lantus 42 units. Patient denied having new focal numbness or new weakness, slurred speech, facial droop, fever, cough, sore throat, chest pain, difficulty breathing, nausea, vomiting, abdominal pain, chest pain, blood in urine, blood in stool, burning micturition. Patient reports that he came to [place] to see his mom. Patient reports chronic right-sided weakness and dysphagia since stroke which was 3 years ago. In ED patient labs WBC 14.5, hemoglobin 14, platelet count 285, pH 7.34, PCO2 41, PO2 82.2, BUN/creatinine 48/2.58, glucose 30, hemoglobin A1c 12, C-peptide 2, unremarkable LFTs, procalcitonin 0.11, TSH 1.144, free T41.16. UA unremarkable. Urine drug screen not detected. CT head reported no CT evidence of acute intraocular hemorrhage or midline shift or mass effect, hypodense changes within right and left-side of the cerebellum. Chest x-ray reported no radiographic evidence of acute pulmonary disease. In ED patient was hypothermic so he is put on Gabriel hugger. Patient presented with glucose level of 30s so he was given D50 and started on D10 drip. Review of Systems Const Constitutional: Reports system reviewed and no additional complaints, except as documented Eyes Eyes: Reports system reviewed and no additional complaints, except as documented ENT ENT: Reports system reviewed and no additional complaints, except as documented Cardio Cardiology: Reports system reviewed and no additional complaints, except as documented Resp Respiratory: Reports system reviewed and no additional complaints, except as documented Gastro GI: Reports system reviewed and no additional complaints, except as documented Genitou Genitourinary male: Reports system reviewed and no additional complaints, except as documented Musculo Symptoms musculoskeletal: Reports system reviewed and no additional complaints, except as documented Skin/Breast Symptoms integumentary/breasts: Reports system reviewed and no additional complaints, except as documented Neurologic Neurologic: Reports system reviewed and no additional complaints, except as documented Endocrine Symptoms endocrine: Reports system reviewed and no additional complaints, except as documented PFSH PFS Medical History BPH (benign prostatic hyperplasia) CVA (cerebral vascular accident) Diabetes Hypertension Hypothyroid Surgical History Hx of right BKA Family History Other Family history non-contributory Social History Advance Directives: No Advance Directives Information Provided: No Advance Directives on File: No Would like to be referred to Health Education Coordinator for info?: No Smoking Status: Current every day smoker Non prescribed substance use: denies use Marital status: Unknown household members: spouse Highest level of school completed/degree received: GED or equivalent Have You Been Hit, Kicked, Punched, or Otherwise Hurt By Someone Within the Past Year? If So, By Whom?: No Do you feel safe in your current relationship?: No Is There a Partner from a Previous Relationship Who is Making You Feel Unsafe Now?: No Other Family history non-contributory BPH (benign prostatic hyperplasia) CVA (cerebral vascular accident) Diabetes Hypertension Hypothyroid Meds Home Medications and Allergies Home Medications Medication Instructions Recorded Confirmed Type albuterol sulfate 90 mcg/actuation 2 puff inhalation Q4H PRN 08/02/23 08/02/23 History aerosol inhaler Shortness Of Breath Or Wheezing ascorbic acid (vitamin C) 500 mg 500 mg ORAL DAILY supplement 08/02/23 08/02/23 History tablet aspirin 81 mg tablet,delayed 81 mg ORAL DAILY heart health 08/02/23 08/02/23 History release atorvastatin 80 mg tablet 80 mg ORAL PM (more content not included)... Normal [facility] Ketones Auto test strip (U) [Mass/Vol]Ordered By: Helen Jovel on 08-02-2023 Ketones (U) [Mass/Vol] Negative Negative So [facility] Laboratory - Chemistry and C hemistry - challengeOrdered By: Christopher Santiago on 08-02-2023 Anion gap [Moles/Vol] 11 mmol/L 04-29 [facility] Lipid Panelon 08-02-2023 Cholesterol [Mass/Vol] 89 mg/dL Normal <200 So [facility] Comment on above: Order Comment: Speci men Type: Unknown Relevant Clinical Information: Altered mental status, hypoglycemia, hypothermia Ordering Facility: [facility] Lab-CLIA#[id number] Address: [address] [place] [address] Performed By: #### L IPID #### [facility] Lab-CLIA#[id number] CLIA [id number] [address] [place] [address] Phil Franklin DO,FCAP Cholesterol in HDL [Mass/Vol] 32 mg/dL Low 40-60 [facility] Comment on above: Order Comment: Speci men Type: Unknown Relevant Clinical Information: Altered mental status, hypoglycemia, hypothermia Ordering Facility: [facility] Lab-CLIA#[id number] Address: [address] [place] [address] Performed By: #### L IPID #### [facility] Lab-CLIA#[id number] CLIA [id number] [address] [place] [address] Phil Franklin DO,FCAP Cholesterol in LDL [Mass/Vol] 28 mg/dL Normal <100 [facility] Comment on above: Order Comment: Speci men Type: Unknown Relevant Clinical Information: Altered mental status, hypoglycemia, hypothermia Ordering Facility: [facility] Lab-CLIA#[id number] Address: [address] [place] [address] Performed By: #### L IPID #### [facility] Lab-CLIA#[id number] CLIA [id number] [address] [place] [address] Phil Franklin DO,FCAP Triglyceride [Mass/Vol] 143 mg/dL Normal <[address] [facility] Comment on above: Order Comment: Speci men Type: Unknown Relevant Clinical Information: Altered mental status, hypoglycemia, hypothermia Ordering Facility: [facility] Lab-CLIA#[id number] Address: [address] [place] [address] Performed By: #### L IPID #### [facility] Lab-CLIA#[id number] CLIA [id number] [address] [place] [address] Phil Franklin DO,FCAP Lymphocytes/100 WBC Auto (Bl d)Ordered By: Christopher Santiago on 08-02-2023 Lymphocytes/100 WBC (Bld) 6.3 % 13.4-45.1 [facility] MCH Auto (RBC) [Entitic mass ]Ordered By: Christopher Santiago on 08-02-2023 MCH (RBC) [Entitic mass] 31.0 pg 27.2-33.0 [facility] MCHC Auto (RBC) [Mass/Vol]Or dered By: Christopher Santiago on 08-02-2023 MCHC (RBC) [Mass/Vol] 34.6 g/dL 31.9-35.1 [facility] MCV (mean corpuscular volume ) determinationOrdered By: Christopher Santiago on 08-02-2023 MCV (RBC) [Entitic vol] 89.8 fL 81.7-97.1 S [facility] Monocytes Auto (Bld) [#/Vol] Ordered By: Christopher Santiago on 08-02-2023 Monocytes (Bld) [#/Vol] 0.50 10*3/uL 0.30-0.90 [facility] Monocytes/100 WBC Auto (Bld) Ordered By: Christopher Santiago on 08-02-2023 Monocytes/100 WBC (Bld) 3.4 % 4.0-12.7 S [facility] Neurology Consult [facility] [address] Neurology Consult Note Signed Patient: Chandler Minor MR#: [id number] : 1970 Acct: [id number] Age/Sex: 53 / M Date of Service: 08/02/23 [facility]: Helen Jovel M.D. cc: Marcelino Abel M.D. HPI: Consult Note Consult details Date of service: 08/02/23 Narrative: Briefly, patient is a 53-year-old male who presented via EMS with altered mental status. As per EMS patient had elevated blood sugar over 500 earlier in the night and gave himself insulin and family heard a thump and went to check on him saw him fallen on the floor unable to wake him up and called EMS. When the EMS arrived his sugar was low with fingerstick of 38 and he was noted to be hypothermic rectal temperature 92.6. Patient was started on external rewarming and received IV dextrose which made him more awake and alert. In the ED patient also had a CT head without contrast which showed no acute intracranial hemorrhage however hypodense changes within the right and left of cerebellum concerning for underlying infected. Patient was admitted to PICU and neurology consulted for altered mental status and abnormal CT findings. Review of Systems Const: Constitutional: Reports system reviewed and no additional complaints, except as documented Eyes: Eyes: Reports system reviewed and no additional complaints, except as documented ENT: ENT: Reports system reviewed and no additional complaints, except as documented Cardio: Cardiology: Reports system reviewed and no additional complaints, except as documented Resp: Respiratory: Reports system reviewed and no additional complaints, except as documented Gastro: GI: Reports system reviewed and no additional complaints, except as documented Genitou: Genitourinary male: Reports system reviewed and no additional complaints, except as documented Musculo: Symptoms musculoskeletal: Reports system reviewed and no additional complaints, except as documented Neurologic: Neurologic: Reports system reviewed and no additional complaints, except as documented Psychiatric: Symptoms psychiatric: Reports system reviewed and no additional complaints, except as documented Endocrine: Symptoms endocrine: Reports system reviewed and no additional complaints, except as doc umented Jordon/Lymph: Symptoms hematologic/lymphatic: Reports system reviewed and no additional complaints, except as documented Allergic/Imm: Symptoms allergic/immunologic: Reports system reviewed and no additional complaints, except as documented PFSH PFSH Medical History BPH (benign prostatic hyperplasia) CVA (cerebral vascular accident) Diabetes Hypertension Hypothyroid Surgical History Hx of right BKA Family History Other Family history non-contributory Social History Advance Directives: No Advance Directives Information Provided: No Advance Directives on File: No Would like to be referred to Health Education Coordinator for info?: No Smoking Status: Current every day smoker Non prescribed substance use: denies use Marital status: Unknown household members: spouse Highest level of school completed/degree received: GED or equivalent Have You Been Hit, Kicked, Punched, or Otherwise Hurt By Someone Within the Past Year? If So, By Whom?: No Do you feel safe in your current relationship?: No Is There a Partner from a Previous Relationship Who is Making You Feel Unsafe Now?: No Other Family history non-contributory BPH (benign prostatic hyperplasia) CVA (cerebral vascular accident) Diabetes Hypertension Hypothyroid Meds Home Medications and Allergies Home Medications Medication Instructions Recorded Confirmed Type albuterol sulfate 90 mcg/actuation 2 puff inhalation Q4H PRN 08/02/23 08/02/23 History aerosol inhaler Shortness Of Breath Or Wheezing ascorbic acid (vitamin C) 500 mg 500 mg ORAL DAILY supplement 08/02/23 08/02/23 History tablet aspirin 81 mg tablet,delayed 81 mg ORAL DAILY heart health 08/02/23 08/02/23 History release atorvastatin 80 mg tablet 80 mg ORAL PM cholesterol 08/02/23 08/02/23 History bumetanide 2 mg tablet 2 mg ORAL BIDAC water pill 08/02/23 08/02/23 History carvedilol 25 mg tablet 25 mg ORAL BID blood pressure 08/02/23 08/02/23 History citalopram 20 mg tablet 20 mg ORAL DAILY mood 08/02/23 08/02/23 History clopidogrel 75 mg tablet 75 mg ORAL DAILY blood thinner 08/02/23 08/02/23 History empagliflozin 10 mg tablet 10 mg ORAL DAILY diabetes 08/02/23 08/02/23 History (Jardiance) ergoc (more content not included)... Normal [facility] Neutrophils Auto (Bld) [#/Vo l]Ordered By: Christopher Santiago on 08-02-2023 Neutrophils (Bld) [#/Vol] 12.71 10*3/uL 1.70-7.00 [facility] Neutrophils/100 WBC Auto (Bl d)Ordered By: Christopher Santiago on 08-02-2023 Neutrophils/100 WBC (Bld) 87.4 % 41.1-75.9 [facility] No Panel InformationOrdered By: Helen Jovel on 08-02-2023 Urine Drug Screen Comment. See comment [facility] Comment on above: This method provides only a preliminary analytical test result. A more specific alternative method should be used to confirm a positive result. None Detected indicates that either the urine sample does not contain drugs in that class or that the drug concentration is below the cutoff level and therefore not detected. Unconfirmed screening results should not be used for non-medical purposes. No Panel InformationOrdered By: Christopher Santiago on 08-02-2023 Pharmacy Creatinine Clearance (Chem 32 [facility] Oxygen (BldA) [Partial press ure]Ordered By: Christopher Santiago on 08-02-2023 Oxygen (Bld) [Partial pressure] 82.2 mm[Hg] 80-110 [facility] Platelet mean volume Auto (B ld) [Entitic vol]Ordered By: Christopher Santiago on 08-02-2023 Platelet mean volume (Bld) [Entitic vol] 11.4 fL 8.6-12.2 [facility] Platelets Auto (Bld) [#/Vol] Ordered By: Christopher Santiago on 08-02-2023 Platelets (Bld) [#/Vol] 285 10*3/uL 133-425 [facility] Potassium (Bld) [Moles/Vol]O rdered By: Christopher Santiago on 08-02-2023 Potassium [Moles/Vol] 4.5 mmol/L 3.5-5.1 [facility] Procalcitoninon 08-02-2023 Procalcitonin 0.11 ng/mL Normal <0.10 [facility] Comment on above: Order Comment: Speci men Type: Unknown Relevant Clinical Information: Altered mental status, hypoglycemia, hypothermia Ordering Facility: [facility] Address: , , Result Comment: *Use of Procalcitonin (PCT) as a diagnostic tool for hospitalized patients has been validated for pneumonia and/or sepsis for antibiotic discontinuation only, not for antibiotic initiation. PCT Interpretation should be made with reference to the patient's clinical context. *Antibiotic initiation should be considered regardless of PCT if the patient is clinically unstable, at high risk for adverse outcome, has strong evidence of bacterial pathogen, or the clinical context indicates antibiotic therapy is warranted. *Serial Procalcitonin levels (drawn every 1-2 days) that trend <0.25 micrograms/Liter may indicate that a bacteriology etiology is unlikely. *Caution in procalcitonin interpretation should be taken in patients suffering from various degrees of chronic kidney disease and other noninfectious conditions (e.g. patel, rhabdomyolysis, thyroid tumors) as PCT may be falsely elevated making the determination of an underlying bacterial infection difficult to establish. Reference: Edinson Narvaez., et al. 2009. Effect of procalcitonin-based guidelines vs standard guidelines on antibiotic use in lower respiratory tract infections. The ProHOSP Randomized Controlled Trial. LAMAR 302: 68993 - 1066. Performed By: #### G LUCOMETER #### [facility] Protein Auto test strip (U) [Mass/Vol]Ordered By: Helen Joevl on 08-02-2023 Protein (U) [Mass/Vol] 300 mg/dL Negative So [facility] RBC Auto (Bld) [#/Vol]Ordere d By: Christopher Santiago on 08-02-2023 RBC (Bld) [#/Vol] 4.51 10*6/uL 3.90-5.90 [facility] Screening urine 6-acetylmorp dirk measurementOrdered By: Helen Jovel on 08-02-2023 6-Monoacetylmorphine (6-ELTON) Screen Ql (U) Not detected None Detect [facility] Comment on above: Cutoff: 10ng/mL Screening urine cannabinoids detection using 50 ng/mL cutoffOrdered By: Helen Jovel on 08-02-2023 Tetrahydrocannabinol Screen method >50 ng/mL Ql (U) Not detected None Detect [facility] Comment on above: Cutoff: 50ng/mL Screening urine opiates test Ordered By: Helen Jovel on 08-02-2023 Opiates Screen Ql (U) Not detected None Detect [facility] Comment on above: Cutoff: 300ng/mL Serum or plasma C peptide me asurement (mass/volume)Ordered By: Helen Jovel on 08-02-2023 C peptide [Mass/Vol] 2.00 ng/mL 0.48-5.05 [facility] Serum or plasma alanine walton otransferase measurement with P-5'-P (enzymatic activity/Ordered By: Helen Jovel on 08-02-2023 ALT With P-5'-P [Catalytic activity/Vol] 14 U/L 10-49 [facility] Serum or plasma albumin regi urement by bromocresol purple (BCP) dye binding method (mOrdered By: Helen Jovel on 08-02-2023 Albumin BCP dye [Mass/Vol] 3.1 g/dL 3.4-5.0 [facility] Serum or plasma alkaline mari sphatase measurement (enzymatic activity/volume)Ordered By: Helen Jovel on 08-02-2023 ALP [Catalytic activity/Vol] 100 U/L 46-116 [facility] Serum or plasma aspartate am inotransferase measurement with P-5'-P (enzymatic activitOrdered By: Helen Jovel on 08-02-2023 AST With P-5'-P [Catalytic activity/Vol] 18 U/L 0-33 [facility] Serum or plasma calcium regi urement (mass/volume)Ordered By: Christopher Santiago on 08-02-2023 Calcium [Mass/Vol] 9.4 mg/dL 8.3-10.6 [facility] Serum or plasma chloride taryn surement (moles/volume)Ordered By: Christopher Santiago on 08-02-2023 Chloride [Moles/Vol] 106 mmol/L 98-107 [facility] Serum or plasma cholesterol measurement (mass/volume)Ordered By: Marcelino Abel on 08-02-2023 Cholesterol [Mass/Vol] 89 mg/dL 0-199 So [facility] Serum or plasma creatinine m easurement (mass/volume)Ordered By: Christopher Santiago on 08-02-2023 Creatinine [Mass/Vol] 2.585 mg/dL 0.70-1.30 [facility] Serum or plasma free thyroxi ne (FT4) measurement (mass/volume)Ordered By: Helen Jovel on 08-02-2023 Free T4 [Mass/Vol] 1.16 ng/dL 0.89-1.76 [facility] Serum or plasma glucose regi urement (mass/volume)Ordered By: Christopher Santiago on 08-02-2023 Glucose [Mass/Vol] 30 mg/dL 74-106 [facility] Serum or plasma high density lipoprotein (HDL) cholesterol measurementOrdered By: Marcelino Abel on 08-02-2023 Cholesterol in HDL [Mass/Vol] 32 mg/dL 40-60 [facility] Serum or plasma potassium me asurement (moles/volume)Ordered By: Christopher Santiago on 08-02-2023 Potassium [Moles/Vol] 4.2 mmol/L 3.5-5.1 [facility] Serum or plasma sodium measu rement (moles/volume)Ordered By: Christopher Santiago on 08-02-2023 Sodium [Moles/Vol] 139 mmol/L 136-145 [facility] Serum or plasma total biliru bin measurement (mass/volume)Ordered By: Helen Jovel on 08-02-2023 Bilirubin [Mass/Vol] 0.4 mg/dL 0.3-1.2 [facility] Serum or plasma total carbon dioxide measurement (moles/volume)Ordered By: Christopher Santiago on 08-02-2023 CO2 [Moles/Vol] 26 mmol/L [facility] Serum or plasma triglyceride measurement (mass/volume)Ordered By: Marcelino Abel on 08-02-2023 Triglyceride [Mass/Vol] 143 mg/dL <149 [facility] Serum or plasma urea nitroge n measurement (mass/volume)Ordered By: Christopher Santiago on 08-02-2023 Urea nitrogen [Mass/Vol] 48 mg/dL 07-06 [facility] Serum procalcitonin measurem entOrdered By: Helen Jovel on 08-02-2023 Procalcitonin [Mass/Vol] 0.11 ng/mL <0.10 [facility] Comment on above: *Use of Procalcitoni n (PCT) as a diagnostic tool for hospitalized patients has been validated for pneumonia and/or sepsis for antibiotic discontinuation only, not for antibiotic initiation. PCT Interpretation should be made with reference to the patient's clinical context.*Antibiotic initiation should be considered regardless of PCT if the patient is clinically unstable, at high risk for adverse outcome, has strong evidence of bacterial pathogen, or the clinical context indicates antibiotic therapy is warranted.*Serial Procalcitonin levels (drawn every 1-2 days) that trend <0.25 micrograms/Liter may indicate that a bacteriology etiology is unlikely. *Caution in procalcitonin interpretation should be taken in patients suffering from various degrees of chronic kidney disease and other noninfectious conditions (e.g. patel, rhabdomyolysis, thyroid tumors) as PCT may be falsely elevated making the determination of an underlying bacterial infection difficult to establish. Reference:Camryn Narvaez, et al. 2009. Effect of procalcitonin-basedguidelines vs standard guidelines on antibiotic use in lowerrespiratory tract infections. The ProHOSP Randomized Controlled Trial. LAMAR 302: 49169 - 1066. Serum total protein measurem ent (mass/volume)Ordered By: Helen Jovel on 08-02-2023 Protein [Mass/Vol] 6.0 g/dL 5.7-8.2 [facility] Sodium (Bld) [Moles/Vol]Orde red By: Christopher Santiago on 08-02-2023 Sodium [Moles/Vol] 139 mmol/L 136-145 [facility] TSHon 08-02-2023 TSH Qn 1.144 m[IU]/L Normal 0.550-4.78 0 [facility] Comment on above: Order Comment: Speci men Type: Unknown Relevant Clinical Information: Altered mental status, hypoglycemia, hypothermia Ordering Facility: [facility] Address: , , Performed By: #### G LUCOMETER #### [facility] TSH DL <= 0.005 mIU/L QnOrde red By: Helen Jovel on 08-02-2023 TSH Qn 1.144 m[IU]/L 0.550-4.78 0 [facility] UA Reflex to Micro and Cultu reon 08-02-2023 Appearance (U) Clear Normal Clear [facility] Comment on above: Order Comment: Speci men Type: Unknown Relevant Clinical Information: Altered mental status, hypoglycemia, hypothermia Ordering Facility: [facility] Lab-CLIA#[id number] Address: [address] [place] [address] Performed By: #### M G, CMP #### [facility]-CLIA#[id number] CLIA [id number] [address] [place] [address] Phil Franklin DO,FCAP Bilirubin Urine Negative Normal Negative [facility] Comment on above: Order Comment: Speci men Type: Unknown Relevant Clinical Information: Altered mental status, hypoglycemia, hypothermia Ordering Facility: [facility] Lab-CLIA#[id number] Address: [address] [place] [address] Performed By: #### M G, CMP #### [facility] Lab-CLIA#[id number] CLIA [id number] [address] [place] [address] Phil Franklin DO,FCAP Blood Urine Trace Abnormal Negative [facility] Comment on above: Order Comment: Speci men Type: Unknown Relevant Clinical Information: Altered mental status, hypoglycemia, hypothermia Ordering Facility: [facility]-CLIA#[id number] Address: [address] [place] [address] Performed By: #### M G, CMP #### [facility]-CLIA#[id number] CLIA [id number] [address] [place] [address] Phil Franklin DO,FCAP Color (U) Yellow Normal Yellow [facility] Comment on above: Order Comment: Speci men Type: Unknown Relevant Clinical Information: Altered mental status, hypoglycemia, hypothermia Ordering Facility: [facility]-CLIA#[id number] Address: [address] [place] [address] Performed By: #### M G, CMP #### [facility]-CLIA#[id number] CLIA [id number] [address] [place] [address] Phil Franklin DO,FCAP Glucose Urine UA 500 mg/dL Abnormal Negative [facility] Comment on above: Order Comment: Speci men Type: Unknown Relevant Clinical Information: Altered mental status, hypoglycemia, hypothermia Ordering Facility: [facility] Lab-CLIA#[id number] Address: [address] [place] [address] Performed By: #### M G, CMP #### [facility]-CLIA#[id number] CLIA [id number] [address] [place] [address] Phil Franklin, DO,FCAP Ketones Ql (U) Negative Normal Negative [facility] Comment on above: Order Comment: Speci men Type: Unknown Relevant Clinical Information: Altered mental status, hypoglycemia, hypothermia Ordering Facility: [facility]-CLIA#[id number] Address: [address] [place] [address] Performed By: #### M G, CMP #### [facility]-CLIA#[id number] CLIA [id number] [address] [place] [address] Phil Franklin, DO,FCAP Leukocyte Esterase Ur Negative Normal Negative [facility] Comment on above: Order Comment: Speci men Type: Unknown Relevant Clinical Information: Altered mental status, hypoglycemia, hypothermia Ordering Facility: [facility]-CLIA#[id number] Address: [address] [place] [address] Performed By: #### M G, CMP #### [facility]-CLIA#[id number] CLIA [id number] [address] [place] [address] Phil Franklin, DO,FCAP Nitrite Urine Negative Normal Negative [facility] Comment on above: Order Comment: Speci men Type: Unknown Relevant Clinical Information: Altered mental status, hypoglycemia, hypothermia Ordering Facility: [facility] Lab-CLIA#[id number] Address: [address] [place] [address] Performed By: #### M G, CMP #### [facility]-CLIA#[id number] CLIA [id number] [address] [place], [place] [address] Phil Franklin, DO,FCAP pH (U) 5.0 [pH] Normal <=7.5 [facility] Comment on above: Order Comment: Speci men Type: Unknown Relevant Clinical Information: Altered mental status, hypoglycemia, hypothermia Ordering Facility: [facility] Lab-CLIA#[id number] Address: [address] [place] [address] Performed By: #### M Deacon, CMP #### [facility]-CLIA#[id number] CLIA [id number] [address] [place] [address] Phil Franklin, DO,FCAP Protein Urine 300 Abnormal Negative [facility] Comment on above: Order Comment: Speci men Type: Unknown Relevant Clinical Information: Altered mental status, hypoglycemia, hypothermia Ordering Facility: [facility] Lab-CLIA#[id number] Address: [address] [place] [address] Performed By: #### Aislinn Worthy, CMP #### [facility]-CLIA#[id number] CLIA [id number] [address] [place] [address] Phil Franklin, DO,FCAP Specific Lawrence Ur 1.015 Normal 1.005-1. 02 5 [facility] Comment on above: Order Comment: Speci men Type: Unknown Relevant Clinical Information: Altered mental status, hypoglycemia, hypothermia Ordering Facility: [facility]-CLIA#[id number] Address: [address] [place] [address] Performed By: #### M Deacon, CMP #### [facility]-CLIA#[id number] CLIA [id number] [address] [place] [address] Phil Franklin, DO,FCAP Urine Type Clean Catch Normal [facility] Comment on above: Order Comment: Speci men Type: Unknown Relevant Clinical Information: Altered mental status, hypoglycemia, hypothermia Ordering Facility: [facility]-CLIA#[id number] Address: [address] [place] [address] Performed By: #### Aislinn Worthy, CMP #### [facility]-CLIA#[id number] CLIA [id number] [address] [place] [address] Phil Franklin DOFCADELA Urobilinogen Urine 0.2 E.U./dL Normal 0-2.0 [facility] Comment on above: Order Comment: Speci men Type: Unknown Relevant Clinical Information: Altered mental status, hypoglycemia, hypothermia Ordering Facility: [facility]-CLIA#[id number] Address: [address] [place] [address] Performed By: #### M Deacon, [facility] #### [facility]-CLIA#[id number] CLIA [id number] [address] [place] [address] Phil Franklin DO, FCAP USRNLMT 08-02-2023 [place] [address] Ultrasound Report Signed Patient: Chandler Minor MR#: [id number] 02 : 1970 Acct: [id number] Age/Sex: 53 / M ADM Date: 08/02/23 Loc: [facility] 4828-[address]: Helen Jovel M.D. Ordering Physician: Helen Jovel M.D. Date of Service: Procedure(s): US renal limited retroper Accession Number(s): [id number] cc: Helen Jovel M.D. RENAL ULTRASOUND TECHNIQUE: Real-time transabdominal sonographic evaluation of the kidneys is performed in multiple planes. COMPARISON: No comparison exams available at the time of dictation. FINDINGS: The right kidney measures 10.5 x 5.6 x 5.2 cm and the left kidney measures 11.6 x 5.6 x 5.0 cm. There is no evidence of a solid or cystic cortical mass. The cortical echogenicity is unremarkable. No hydronephrosis or shadowing calculi are evident. There is no evidence of perinephric fluid collection. End of Report US/US renal limited retroper IMPRESSION: 1. Unremarkable renal ultrasound. Electronically Signed By: Jorge A Yang D.O. 08/02/23 1244 [id number] Normal [facility] Urine Drug Screen of Abuseon 08-02-2023 Amphetamine Screen Ur Not detected Normal None Detect [facility] Comment on above: Order Comment: Speci men Type: Unknown Relevant Clinical Information: Altered mental status, hypoglycemia, hypothermia Ordering Facility: [facility] Address: , , Result Comment: Cuto ff: 500ng/mL Performed By: #### G LUCOMETER #### [facility] Barbiturate Screen Ur Not detected Normal None Detect [facility] Comment on above: Order Comment: Speci men Type: Unknown Relevant Clinical Information: Altered mental status, hypoglycemia, hypothermia Ordering Facility: [facility] Address: , , Result Comment: Cuto ff: 200ng/mL Performed By: #### G LUCOMETER #### [facility] Benzodiazepines Screen Ur Not detected Normal None Detect [facility] Comment on above: Order Comment: Speci men Type: Unknown Relevant Clinical Information: Altered mental status, hypoglycemia, hypothermia Ordering Facility: [facility] Address: , , Result Comment: Cuto ff: 200ng/mL Performed By: #### G LUCOMETER #### [facility] Buprenorphine Screen Ur Not detected Normal None Detect [facility] Comment on above: Order Comment: Speci men Type: Unknown Relevant Clinical Information: Altered mental status, hypoglycemia, hypothermia Ordering Facility: [facility] Address: , , Result Comment: Cuto ff: 5ng/mL Performed By: #### G LUCOMETER #### [facility] Cannabinoid Screen Urine Not detected Normal None Detect [facility] Comment on above: Order Comment: Speci men Type: Unknown Relevant Clinical Information: Altered mental status, hypoglycemia, hypothermia Ordering Facility: [facility] Address: , , Result Comment: Cuto ff: 50ng/mL Performed By: #### G LUCOMETER #### [facility] Cocaine Screen Ur Not detected Normal None Detect [facility] Comment on above: Order Comment: Speci men Type: Unknown Relevant Clinical Information: Altered mental status, hypoglycemia, hypothermia Ordering Facility: [facility] Address: , , Result Comment: Cuto ff: 150ng/mL Performed By: #### G LUCOMETER #### [facility] Fentanyl Screen Ur Not detected Normal None Detect [facility] Comment on above: Order Comment: Speci men Type: Unknown Relevant Clinical Information: Altered mental status, hypoglycemia, hypothermia Ordering Facility: [facility] Address: , , Result Comment: Cuto ff: 1.0 ng/mL Quinine and Quinidine may interfere with Fentanyl screening. Performed By: #### G LUCOMETER #### [facility] Heroin (6-AM) Screen Ur Not detected Normal None Detect [facility] Comment on above: Order Comment: Speci men Type: Unknown Relevant Clinical Information: Altered mental status, hypoglycemia, hypothermia Ordering Facility: [facility] Address: , , Result Comment: Cuto ff: 10ng/mL Performed By: #### G LUCOMETER #### [facility] Methadone Screen Ur Not detected Normal None Detect [facility] Comment on above: Order Comment: Speci men Type: Unknown Relevant Clinical Information: Altered mental status, hypoglycemia, hypothermia Ordering Facility: [facility] Address: , , Result Comment: Cuto ff: 150ng/mL Performed By: #### G LUCOMETER #### [facility] Opiate Screen Ur Not detected Normal None Detect [facility] Comment on above: Order Comment: Speci men Type: Unknown Relevant Clinical Information: Altered mental status, hypoglycemia, hypothermia Ordering Facility: [facility] Address: , , Result Comment: Cuto ff: 300ng/mL Performed By: #### G LUCOMETER #### [facility] Oxycodone Screen Ur Not detected Normal None Detect [facility] Comment on above: Order Comment: Speci men Type: Unknown Relevant Clinical Information: Altered mental status, hypoglycemia, hypothermia Ordering Facility: [facility] Address: , , Result Comment: Cuto ff: 100ng/mL Performed By: #### G LUCOMETER #### [facility] Urine Drug Message Normal [facility] Comment on above: Order Comment: Speci men Type: Unknown Relevant Clinical Information: Altered mental status, hypoglycemia, hypothermia Ordering Facility: [facility] Address: , , Result Comment: This method provides only a preliminary analytical test result. A more specific alternative method should be used to confirm a positive result. None Detected indicates that either the urine sample does not contain drugs in that class or that the drug concentration is below the cutoff level and therefore not detected. Unconfirmed screening results should not be used for non-medical purposes. Performed By: #### G LUCOMETER #### [facility] Urine Microscopicon 10-20-20 23 Hyaline Casts Urine 6 /LPF High 0-5 [facility] Comment on above: Order Comment: Speci men Type: Unknown Relevant Clinical Information: Altered mental status, hypoglycemia, hypothermia Ordering Facility: [facility] Lab-CLIA#[id number] Address: [address] [place] [address] Performed By: #### Aislinn Worthy, CMP #### [facility] Lab-CLIA#[id number] CLIA [id number] [address] [place] [address] Phil Franklin, DO,FCAP RBC LM.HPF (Urine sed) [#/Area] 1 /[HPF] Normal 0-5 [facility] Comment on above: Order Comment: Speci men Type: Unknown Relevant Clinical Information: Altered mental status, hypoglycemia, hypothermia Ordering Facility: [facility] Lab-CLIA#[id number] Address: [address] [place] [address] Performed By: #### Aislinn Worthy, CMP #### [facility] Lab-CLIA#[id number] CLIA [id number] [address] [place] [address] Phil Franklin, DO,FCAP Squamous Epithelial Cell Urine 0 /HPF Normal 0-4 [facility] Comment on above: Order Comment: Speci men Type: Unknown Relevant Clinical Information: Altered mental status, hypoglycemia, hypothermia Ordering Facility: [facility] Lab-CLIA#[id number] Address: [address] [place] [address] Performed By: #### Aislinn Worthy, CMP #### [facility] Lab-CLIA#[id number] CLIA [id number] [address] [place] [address] Phil Franklin, DO,FCAP Urine Bacteria None Normal None [facility] Comment on above: Order Comment: Speci men Type: Unknown Relevant Clinical Information: Altered mental status, hypoglycemia, hypothermia Ordering Facility: [facility] Lab-CLIA#[id number] Address: [address] [place] [address] Performed By: #### Aislinn Worthy, CMP #### [facility] Lab-CLIA#[id number] CLIA [id number] [address] [place] [address] Phil Franklin DOFCAP WBC LM.HPF (Urine sed) [#/Area] 0 /[HPF] Normal 0-4 [facility] Comment on above: Order Comment: Speci men Type: Unknown Relevant Clinical Information: Altered mental status, hypoglycemia, hypothermia Ordering Facility: [facility] Lab-CLIA#[id number] Address: [address] [place] [address] Performed By: #### M G, CMP #### [facility] Lab-CLIA#[id number] CLIA [id number] [address] [place] [address] Phil Franklin DO,FCAP Urine blood detectionOrdered By: Helen Jovel on 08-02-2023 RBC Ql (U) Trace Negative [facility] Urine buprenorphine screenOr dered By: Helen Jovel on 08-02-2023 Buprenorphine Screen Ql (U) Not detected None Detect [facility] Comment on above: Cutoff: 5ng/mL Urine colorOrdered By: Vicente Jovel on 08-02-2023 Color (U) Yellow Yellow [facility] Urine fentanyl detection by screening methodOrdered By: Helen Jovel on 08-02-2023 fentaNYL Screen Ql (U) Not detected None Detect [facility] Comment on above: Cutoff: 1.0 ng/mLQui nine and Quinidine may interfere with Fentanyl screening. Urine glucose measurement by automated test strip (mass/volume)Ordered By: Helen Jovel on 08-02-2023 Glucose Auto test strip (U) [Mass/Vol] 500 mg/dL Negative [facility] Urine leukocyte esterase det ection by automated test stripOrdered By: Helen Jovel on 08-02-2023 Leukocyte esterase Auto test strip Ql (U) Negative Negative [facility] Urine methadone screenOrdere d By: Helen Jovel on 08-02-2023 Methadone Screen Ql (U) Not detected None Detect [facility] Comment on above: Cutoff: 150ng/mL Urine nitrite detection by a utomated test stripOrdered By: Helen Jovel on 08-02-2023 Nitrite Auto test strip Ql (U) Negative Negative [facility] Urine pHOrdered By: Helen Jovel on 08-02-2023 pH (U) 5.0 [pH] 0-7.5 [facility] Urine specific gravity measu rementOrdered By: Helen Jovel on 08-02-2023 Specific gravity (U) [Rel density] 1.015 1.005-1.02 5 [facility] Urine urobilinogen measureme ntOrdered By: Helen Jovel on 08-02-2023 Urobilinogen Ql (U) 0.2 E.U./dL 0-2.0 [facility] WBC Auto (Bld) [#/Vol]Ordere d By: Christopher Santiago on 08-02-2023 WBC (Bld) [#/Vol] 14.5 10*3/uL 4.5-11.0 [facility] Whole blood ionized calcium measurement adjusted to pH 7.4 (moles/volume)Ordered By: Christopher Santiago on 08-02-2023 Calcium.ionized adjusted to pH 7.4 (Bld) [Moles/Vol] 1.19 mmol/L 1.01-1.33 [facility] [id number] 08-02-2023 [id number] [place] [address] XRay Report Signed Patient: Chandler Minor MR#: [id number] [birth year] : 1970 Acct: [id number] Age/Sex: 53 / M ADM Date: 08/02/23 Loc: ER.SV Attending Dr: Ordering Physician: Helen Jovel M.D. Date of Service: Procedure(s): XR chest 1V portable Accession Number(s): [id number] cc: Helen Jovel M.D. CHEST COMPARISON: None FINDINGS: CARDIOVASCULAR: The cardiomediastinal silhouette is not enlarged. LUNGS: No focal airspace disease identified. No significant pleural effusion or pneumothorax identified. OSSEOUS STRUCTURES: Bony structures are intact. TUBES/LINES/IMPLANTABLE DEVICES: None. The need for further evaluation with CT chest should be determined clinically. End of Report XR/XR chest 1V portable IMPRESSION: No radiographic evidence of acute pulmonary disease identified. Electronically Signed By: Og Yang D.O. 08/02/23 0715 [id number] Normal [facility] oxyCODONE Screen Ql (U)Order ed By: Helen Jovel on 08-02-2023 oxyCODONE Ql (U) Not detected None Detect [facility] Comment on above: Cutoff: 100ng/mL pH (BldA)Ordered By: Christopher franklin on 08-02-2023 pH (Bld) 7.34 [pH] 7.35-7.45 [facility] Patient Provided Health Data on 07-29-2023 Patient Provided Health Data [id number]#[id number] TIFF [facility] Progress Noteson 07-24-2023 Mineral Engineer Authentication Interface Message Text Longstanding PDR OU, DME, mac ischemia OU Sp PRP OU, Repeated injections - last 10/2022, 06/2023 Did not notice any real improvement with injections PRP fill in OU 12/2022 No real change since last visit A/P 1. 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 Amaurosis fugax OU - Reported ~08/2020 with transient vision loss episodes but now resolved as of 10/2020 - 12/2019 MRA neck no ICA stenosis - GCA symptoms POWELL, jaw mikaela, F/C negative - rec go to ED if symptoms recur Return 6 weeks Dilate OU OCT mac OU Normal [facility] Study observation Right reti na by OCTon 07-24-2023 [facility] Radiology Study observation (narrative) [facility] Patient Handouton 07-12-2023 Patient Handout [id number]#[id number] TIFF Normal [facility] INTRAVITREAL INJECTION, PHAR MACOLOGIC AGENT - OU - BOTH EYESon 06-26-2023 Time Out The date was 06/26/2023. The time was 4:30 PM. Confirmed correct patient, procedure, site, and patient consented. Anesthesia Right Eye Subconjunctival anesthesia was used. Anesthetic medications included Lidocaine 2%. Left Eye Subconjunctival anesthesia was used. Anesthetic medications included Lidocaine 2%. Procedure Right Eye Preparation included 10% betadine to eyelids. A 30 gauge needle was used. Injection Medications: 1.25 mg bevacizumab 1.25MG/0.05 mL Route: Intravitreal, Site: Right Eye Lot: [id number], Expiration date: 06/27/2023 Left Eye Preparation included 10% betadine to eyelids. A 30 gauge needle was used. Injection Medications: 1.25 mg bevacizumab 1.25MG/0.05 mL Route: Intravitreal, Site: Left Eye Lot: [id number], Expiration date: 06/27/2023 Post-op Right Eye Post injection exam found visual acuity of at least counting fingers. Post injection medications were not given. There were no complications. Left Eye Post injection exam found visual acuity of at least counting fingers. Post injection medications were not given. There were no complications. General Details The patient tolerated the procedure well. The patient received written and verbal post procedure care education. [facility] Progress Noteson 06-26-2023 Mineral Engineer Authentication Interface Message Text Longstanding PDR OU, DME, mac ischemia OU Sp PRP OU, Repeated injections - last 10/2022 Did not notice any real improvement [place] [id number] Vision worse per pt A/P 1. 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 Amaurosis fugax OU - Reported ~08/2020 with transient vision loss episodes but now resolved as of 10/2020 - 12/2019 MRA neck no ICA stenosis - GCA symptoms POWELL, jaw mikaela, F/C negative - rec go to ED if symptoms recur Return 2 months Dilate OU OCT mac OU Normal [facility] Study observation Right reti na by JULon 06-26-2023 [facility] Radiology Study observation (narrative) [facility] Basic Metabolic Panelon 07-0 Anion gap [Moles/Vol] Not performed Normal 6.0-15.0 [facility] Comment on above: Performed By: #### M Deacon BMP, CBC #### [facility] [address] [place] [address] [place] Calcium [Mass/Vol] 8.7 mg/dL Normal 8.6-10.3 [facility] Comment on above: Performed By: #### M Deacon BMP, CBC #### [facility] [address] [place] [address] [place] Chloride [Moles/Vol] 98 mmol/L Normal 98-107 [facility] Comment on above: Performed By: #### M Deacon BMP, CBC #### [facility] [address] [place] [address] [place] CO2 [Moles/Vol] 31.8 mmol/L High 21.0-31.0 [facility] Comment on above: Performed By: #### M Deacon BMP, CBC #### [facility] [address] [place] [address] [place] Creatinine [Mass/Vol] 2.57 mg/dL High 0.70-1.30 [facility] Comment on above: Performed By: #### Aislinn Worthy BMP, CBC #### [facility] [address] [place] [address] [place] Creatinine Clr Calc Pharmacy 38.54 [facility] Comment on above: Performed By: #### Aislinn Worthy, BMP, CBC #### [facility] [address] [place] [address] [place] GFR/1.73 sq M.predicted MDRD (S/P/Bld) [Vol rate/Area] 29.357 mL/min/{1.73_m2} [facility] Comment on above: Performed By: #### DIMA Matthews, CBC #### [facility] [address] Glucose [Mass/Vol] 97 mg/dL Normal 70-100 [facility] Comment on above: Result Comment: [place] Glucose Reference Range is dependent on time and content of last meal. Glucose of more than 200 mg/dL in a nonstressed, ambulatory subject supports the diagnosis of Diabetes Mellitus. ADA recommended reference range Performed By: #### Aislinn Worthy BMP, CBC #### [facility] [address] Potassium Normal 3.5-5.1 [facility] Comment on above: Result Comment: Spec imen hemolyzed, redraw requested Performed By: #### Aislinn Worthy BMP, CBC #### [facility] [address] Sodium Normal 136-145 [facility] Comment on above: Result Comment: Spec imen hemolyzed, redraw requested Performed By: #### Aislinn Worthy BMP, CBC #### [facility] [address] [place] [address] [place] Urea nitrogen [Mass/Vol] 56 mg/dL High 7-25 [facility] Comment on above: Performed By: #### Aislinn Worthy BMP, CBC #### [facility] [address] [place] [id number] [facility] Basophils Auto (Bld) [#/Vol] Ordered By: Albert Woods on 04-18-2023 Basophils (Bld) [#/Vol] 0.0 10*3/uL 0.0-0.2 [facility] Basophils/100 WBC Auto (Bld) Ordered By: Albert Woods on 04-18-2023 Basophils/100 WBC (Bld) 0.6 % . F [facility] Calcium [Mass/volume] in Ser um or PlasmaOrdered By: Albert Woods on 04-18-2023 Calcium [Mass/Vol] 8.7 mg/dL 8.6-10.3 [facility] Carbon dioxide, total [Moles /volume] in Serum or PlasmaOrdered By: Albert Woods on 04-18-2023 CO2 [Moles/Vol] 31.8 mmol/L 21.0-31.0 [facility] Chloride [Moles/volume] in S gu[place] or PlasmaOrdered By: Albert Woods on 04-18-2023 Chloride [Moles/Vol] 98 mmol/L 98-107 [facility] Complete Blood Count Auto Di ffon 04-18-2023 Basophils (Bld) [#/Vol] 0.0 10*3/uL Normal 0.0-0.2 [facility] Comment on above: Result Comment: PERF ORMED BY: [facility] [address] [place] [address] PATHOLOGIST DRYWALL PROFESSIONAL MOOK BROWN M.D. Performed By: #### M DIMA Worthy, CBC #### [facility] [address] [place] [address] [place] Basophils/100 WBC (Bld) 0.6 % Normal . F [facility] Comment on above: Performed By: #### M Deacon, BMP, CBC #### [facility] [address] [place] [address] [place] Eosinophils (Bld) [#/Vol] 0.3 10*3/uL Normal 0.0-0.45 [facility] Comment on above: Performed By: #### M Deacon BMP, CBC #### [facility] [address] [place] [address] [place] Eosinophils/100 WBC (Bld) 4.2 % Normal . [facility] Comment on above: Performed By: #### Aislinn Worthy BMP, CBC #### [facility] [address] Erythrocyte distribution width (RBC) [Ratio] 16.2 % High 12.0-14.8 [facility] Comment on above: Performed By: #### Aislinn Worthy BMP, CBC #### [facility] [address] Hematocrit (Bld) [Volume fraction] 38.4 % Low 38.8-50.0 [facility] Comment on above: Performed By: #### M Deacon BMP, CBC #### [facility] [address] Hemoglobin (Bld) [Mass/Vol] 12.8 g/dL Low 13.0-17.0 [facility] Comment on above: Performed By: #### Aislinn Worthy BMP, CBC #### [address] Lymphocytes (Bld) [#/Vol] 1.3 10*3/uL Normal 1.00-4.8 [facility] Comment on above: Performed By: #### Aislinn Worthy BMP, CBC #### [address] Lymphocytes/100 WBC (Bld) 17.3 % Normal . [facility] Comment on above: Performed By: #### Aislinn Worthy BMP, CBC #### [address] MCH (RBC) [Entitic mass] 29.7 pg Normal 27.5-35.2 [facility] Comment on above: Performed By: #### Aislinn Worthy BMP, CBC #### [facility] [address] MCV (RBC) [Entitic vol] 89.5 fL Normal 83.5-101 F [facility] Comment on above: Performed By: #### Aislinn Worthy BMP, CBC #### [address] Mean Corpuscular HGB Conc 33.2 g/dL Normal 32.5-35.6 [facility] Comment on above: Performed By: #### M Deacon BMP, CBC #### [facility] [address] [place] [address] [place] Monocytes (Bld) [#/Vol] 0.8 10*3/uL Normal 0.0-0.8 [facility] Comment on above: Performed By: #### Aislinn Worthy BMP, CBC #### [facility] [address] [place] [address] [place] Monocytes/100 WBC (Bld) 10.8 % Normal . F [facility] Comment on above: Performed By: #### Aislinn Worthy BMP, CBC #### [facility] [address] [place] [address] [place] Neutrophils (Bld) [#/Vol] 5.0 10*3/uL Normal 1.8-7.7 [facility] Comment on above: Performed By: #### Aislinn Worthy BMP, CBC #### [facility] [address] Neutrophils/100 WBC (Bld) 67.1 % Normal . [facility] Comment on above: Performed By: #### DIMA Matthews, CBC #### [facility] [address] [place] [address] [place] NRBC% 0.1 /100{WBC} Normal 0-0.5 [facility] Comment on above: Performed By: #### Aislinn Worthy BMP, CBC #### [facility] [address] [place] [address] [place] Platelet mean volume (Bld) [Entitic vol] 9.6 fL Normal 6.6-10.1 [facility] Comment on above: Performed By: #### Aislinn Worthy BMP, CBC #### [facility] [address] [place] [address] [place] Platelets (Bld) [#/Vol] 199 10*3/uL Normal 150-450 [facility] Comment on above: Performed By: #### Aislinn Worthy BMP, CBC #### [facility] [address] [place] [address] [place] RBC (Bld) [#/Vol] 4.29 10*6/uL Normal 3.90-5.60 [facility] Comment on above: Performed By: #### M DIMA Worthy, CBC #### [facility] [address] WBC (Bld) [#/Vol] 7.4 10*3/uL Normal 4.1-10.5 [facility] Comment on above: Performed By: #### M DIMA Worthy, CBC #### [facility] [address] Creatinine [Mass/volume] in Serum or PlasmaOrdered By: Albert Woods on 04-18-2023 Creatinine [Mass/Vol] 2.57 mg/dL 0.70-1.30 [facility] Eosinophils Auto (Bld) [#/Vo l]Ordered By: Albert Woods on 04-18-2023 Eosinophils (Bld) [#/Vol] 0.3 10*3/uL 0.0-0.45 [facility] Eosinophils/100 WBC Auto (Bl d)Ordered By: Albert Woods on 04-18-2023 Eosinophils/100 WBC (Bld) 4.2 % . [facility] Erythrocyte distribution wid th Auto (RBC) [Ratio]Ordered By: Albert Woods on 04-18-2023 Erythrocyte distribution width (RBC) [Ratio] 16.2 % 12.0-14.8 [facility] Free K+L LT Chains, Qn, Son 04-18-2023 Free Armour Light Chains, S 57.0 mg/L High 3.3-19.4 [facility] Comment on above: Performed By: #### R EDRAW K, REDRAW MG, REDRAW NA #### [facility] [address] Free Lambda Light Chains, S 31.9 mg/L High 5.7-26.3 [facility] Comment on above: Performed By: #### R EDRAW K, REDRAW MG, REDRAW NA #### [facility] [address] Armour/Lambda Ratio, S 1.79 High 0.26-1.65 [facility] Comment on above: Result Comment: Perf ormed at: - [facility] [address] [id number] State Director: Phil Chua PhD, Phone: [phone] PERFORMED BY: [place] [address] PATHOLOGIST DRYWALL PROFESSIONAL MOOK BROWN M.D. Performed By: #### R EDRAW K, REDRAW MG, REDRAW NA #### [place] [address] [place] Glucose Glucometer (BldC) [M ass/Vol]Ordered By: Kameron Dos Santos on 04-18-2023 Glucose [Mass/Vol] 133 mg/dL [facility] Comment on above: Random Glucose Refer ence Range is dependent on time and content of last meal. Glucose of more than 200 mg/dL in a nonstressed, ambulatory subject supports the diagnosis of Diabetes Mellitus. Glucose Poct Glucometerson 0 04-18-2023 Commemt1 Glu2: Cleaned Meter [facility] Comment on above: Result Comment: PERF ORMED BY: [place] [address] PATHOLOGIST DRYWALL PROFESSIONAL MOOK BROWN M.D. Performed By: #### G LULS #### Point of Care testing , Glucose [Mass/Vol] 133 mg/dL Normal [facility] Comment on above: Result Comment: [place] Glucose Reference Range is dependent on time and content of last meal. Glucose of more than 200 mg/dL in a nonstressed, ambulatory subject supports the diagnosis of Diabetes Mellitus. Performed By: #### G LULS #### Point of Care testing , Commemt1 Glu2: Cleaned Meter [facility] Comment on above: Result Comment: PERF ORMED BY: [place] [address] PATHOLOGIST DRYWALL PROFESSIONAL MOOK BRWON M.D. Performed By: #### R EDRAW K, REDRAW MG, REDRAW NA #### [facility] [address] [place] [address] [place] Glucose [Mass/Vol] 114 mg/dL Normal [facility] Comment on above: Result Comment: [place] om Glucose Reference Range is dependent on time and content of last meal. Glucose of more than 200 mg/dL in a nonstressed, ambulatory subject supports the diagnosis of Diabetes Mellitus. Performed By: #### R EDRAW K, REDRAW MG, REDRAW NA #### [facility] [address] [place] [address] [place] Glucose [Mass/volume] in Ser um or PlasmaOrdered By: Albert Woods on 04-18-2023 Glucose [Mass/Vol] 97 mg/dL 70-100 [facility] Comment on above: ADA recommended refe rence rangeRandom Glucose Reference Range is dependent on time and content of last meal. Glucose of more than 200 mg/dL in a nonstressed, ambulatory subject supports the diagnosis of Diabetes Mellitus. Hematocrit Auto (Bld) [Volum e fraction]Ordered By: Albert Woods on 04-18-2023 Hematocrit (Bld) [Volume fraction] 38.4 % 38.8-50.0 [facility] Hemoglobin [Mass/volume] in BloodOrdered By: Albert Woods on 04-18-2023 Hemoglobin (Bld) [Mass/Vol] 12.8 g/dL 13.0-17.0 [facility] Immunofixation, (LOVE), Urine on 04-18-2023 Immunofixation, (LOVE), Urine Comment: Normal . [facility] Comment on above: Result Comment: Pres ence of monoclonal protein is unclear at this time. Suggest repeat in 3 to 6 months if clinically indicated. Performed at: - [address] [id number] State Director: Phil Chua PhD, Phone: [phone] PERFORMED BY: [facility] [address] [facility] [place] [address] PATHOLOGIST DRYWALL PROFESSIONAL MOOK BROWN M.D. Performed By: #### R EDRAW K, REDRAW MG, REDRAW NA #### [facility] [address] [place] [address] [place] Immunofixation,Serumon 04-18 Immunofixation, Serum Normal . [facility] Comment on above: Result Comment: No m onoclonality detected. Performed By: #### R EDRAW K, REDRAW MG, REDRAW NA #### [facility] [address] Immunoglobulin A, Serum 149 mg/dL Normal 90-386 F [facility] Comment on above: Performed By: #### R EDRAW K, REDRAW MG, REDRAW NA #### [facility] [address] Immunoglobulin G 565 mg/dL Low [id number] [facility] Comment on above: Performed By: #### R EDRAW K, REDRAW MG, REDRAW NA #### [facility] [address] Immunoglobulin M, Serum 36 mg/dL Normal 20-172 [facility] [facility] Comment on above: Performed By: #### R EDRAW K, REDRAW MG, REDRAW NA #### [facility] [address] [place] [address] Leukocytes [#/volume] correc hamlet for nucleated erythrocytes in Blood by Automated counOrdered By: Albert Woods on 04-18-2023 WBC corrected for nucl RBC Auto (Bld) [#/Vol] 7.4 10*3/uL 4.1-10.5 [facility] Lymphocytes Auto (Bld) [#/Vo l]Ordered By: Albert Woods on 04-18-2023 Lymphocytes (Bld) [#/Vol] 1.3 10*3/uL 1.00-4.8 [facility] Lymphocytes/100 WBC Auto (Bl d)Ordered By: Albert Woods on 04-18-2023 Lymphocytes/100 WBC (Bld) 17.3 % . [facility] MCH Auto (RBC) [Entitic mass ]Ordered By: Albert Woods on 04-18-2023 MCH (RBC) [Entitic mass] 29.7 pg 27.5-35.2 [facility] MCHC Auto (RBC) [Mass/Vol]Or dered By: Albert Woods on 04-18-2023 MCHC (RBC) [Mass/Vol] 33.2 g/dL 32.5-35.6 [facility] MCV Auto (RBC) [Entitic vol] Ordered By: Albert Woods on 04-18-2023 MCV (RBC) [Entitic vol] 89.5 fL 83.5-101 F [facility] Magnesiumon 04-18-2023 Magnesium Normal 1.9-2.7 [facility] Comment on above: Result Comment: Spec imen hemolyzed, redraw requested PERFORMED BY: [place] [address] PATHOLOGIST [employer] PROFESSION[employer] MOOK BROWN M.D. Performed By: #### M G, BMP, CBC #### [address] Magnesium [Mass/volume] in S gu[place] or PlasmaOrdered By: Kameron Dos Santos on 04-18-2023 Magnesium [Mass/Vol] 2.4 mg/dL 1.9-2.7 [facility] Monocytes Auto (Bld) [#/Vol] Ordered By: Albert Woods on 04-18-2023 Monocytes (Bld) [#/Vol] 0.8 10*3/uL 0.0-0.8 [facility] Monocytes/100 WBC Auto (Bld) Ordered By: Albert Woods on 04-18-2023 Monocytes/100 WBC (Bld) 10.8 % . F [facility] Neutrophils Auto (Bld) [#/Vo l]Ordered By: Albert Woods on 04-18-2023 Neutrophils (Bld) [#/Vol] 5.0 10*3/uL 1.8-7.7 [facility] Neutrophils/100 WBC Auto (Bl d)Ordered By: Albert Woods on 04-18-2023 Neutrophils/100 WBC (Bld) 67.1 % . [facility] No Panel InformationOrdered By: Kameron Dos Santos on 04-18-2023 Bedside Glucose Comment Glu2: cleaned meter [facility] No Panel InformationOrdered By: Albert Woods on 04-18-2023 Estimated GFR (CKD-EPI) 29.357 mL/Min [facility] Creatinine Clearance (Chem 38.54 [facility] Nucleated erythrocytes [Pres ence] in Blood by Automated countOrdered By: Albert Woods on 04-18-2023 Nucleated RBC Auto Ql (Bld) 0.1 /100{WBC} 0-0.5 [facility] Platelet mean volume Auto (B ld) [Entitic vol]Ordered By: Albert Woods on 04-18-2023 Platelet mean volume (Bld) [Entitic vol] 9.6 fL 6.6-10.1 [facility] Platelets Auto (Bld) [#/Vol] Ordered By: Albert Woods on 04-18-2023 Platelets (Bld) [#/Vol] 199 10*3/uL 150-450 [facility] Potassium [Moles/volume] in Serum or PlasmaOrdered By: Kameron Dos Santos on 04-18-2023 Potassium [Moles/Vol] 3.8 mmol/L 3.5-5.1 [facility] RBC Auto (Bld) [#/Vol]Ordere d By: Albert Woods on 04-18-2023 RBC (Bld) [#/Vol] 4.29 10*6/uL 3.90-5.60 [facility] Redraw Magnesiumon 3 Magnesium [Mass/Vol] 2.4 mg/dL Normal 1.9-2.7 [facility] Comment on above: Result Comment: PERF ORMED BY: [facility] [address] [place] [address] PATHOLOGIST [employer]ESSION[employer] MOOK BROWN M.D. Performed By: #### R EDRAW K, REDRAW MG, REDRAW NA #### [facility] [address] Redraw Potassiumon 3 Potassium [Moles/Vol] 3.8 mmol/L Normal 3.5-5.1 [facility] Comment on above: Performed By: #### R EDRAW K, REDRAW MG, REDRAW NA #### [facility] [address] [place] [address] [place] Redraw Sodiumon 04-18-2023 Sodium [Moles/Vol] 138 mmol/L Normal 136-145 [facility] Comment on above: Performed By: #### R EDRAW K, REDRAW MG, REDRAW NA #### [facility] [address] Serum or plasma anion gap de terminationOrdered By: Albert Woods on 04-18-2023 Anion gap [Moles/Vol] TNP [facility] Comment on above: Test not performed Sodium [Moles/volume] in Ser um or PlasmaOrdered By: Kameron Dos Santos on 04-18-2023 Sodium [Moles/Vol] 138 mmol/L 136-145 [facility] Urea nitrogen [Mass/volume] in Serum or PlasmaOrdered By: Albert Woods on 04-18-2023 Urea nitrogen [Mass/Vol] 56 mg/dL 7-25 [facility] WBC Auto (Bld) [#/Vol]Ordere d By: Albert Woods on 04-18-2023 WBC (Bld) [#/Vol] 7.4 10*3/uL 4.1-10.5 [facility] A1C with Estimated Average G carmelon 04-17-2023 Glucose [Mass/Vol] 315 mg/dL Normal [facility] Comment on above: Result Comment: PERF ORMED BY: [place] [address] PATHOLOGIST [employer]ESSION[employer] MOOK BROWN M.D. Performed By: #### R EDRAW K, REDRAW MG, REDRAW NA #### [facility] [address] [place] [address] HbA1c (Bld) [Mass fraction] 12.6 % High 4.3-5.6 [facility] Comment on above: Result Comment: Incr eased risk for diabetes: 5.7 - 6.4 diabetes: >6.4 glycemic control for adults with diabetes: <7.0 Performed By: #### R MONISHA KORIANA MG, REDLAVELL NA #### [facility] [address] Basic Metabolic Panelon 07-0 Anion gap [Moles/Vol] 10.4 mmol/L Normal 6.0-15.0 [facility] Comment on above: Performed By: #### B MP, MG, CBC #### [facility] [address] Calcium [Mass/Vol] 8.5 mg/dL Low 8.6-10.3 [facility] Comment on above: Performed By: #### B MP, MG, CBC #### [facility] [address] Chloride [Moles/Vol] 100 mmol/L Normal 98-107 [facility] Comment on above: Performed By: #### B MP, MG, CBC #### [facility] [address] CO2 [Moles/Vol] 30.3 mmol/L Normal 21.0-31.0 [facility] Comment on above: Performed By: #### B MP, MG, CBC #### [facility] [address] Creatinine [Mass/Vol] 2.66 mg/dL High 0.70-1.30 [facility] Comment on above: Performed By: #### B MP, MG, CBC #### [facility] [address] Creatinine Clr Calc Pharmacy 36.86 [facility] Comment on above: Performed By: #### B MP, MG, CBC #### [facility] [address] [place] [address] [place] GFR/1.73 sq M.predicted MDRD (S/P/Bld) [Vol rate/Area] 28.169 mL/min/{1.73_m2} [facility] Comment on above: Performed By: #### B MP, MG, CBC #### [address] Glucose [Mass/Vol] 100 mg/dL Normal 70-100 [facility] Comment on above: Result Comment: [place] Glucose Reference Range is dependent on time and content of last meal. Glucose of more than 200 mg/dL in a nonstressed, ambulatory subject supports the diagnosis of Diabetes Mellitus. ADA recommended reference range Performed By: #### B MP, MG, CBC #### [address] Potassium [Moles/Vol] 3.7 mmol/L Normal 3.5-5.1 [facility] Comment on above: Performed By: #### B MP, MG, CBC #### [address] Sodium [Moles/Vol] 137 mmol/L Normal 136-145 [facility] Comment on above: Performed By: #### B MP, MG, CBC #### [address] Urea nitrogen [Mass/Vol] 57 mg/dL High 7-25 [facility] Comment on above: Performed By: #### B MP, MG, CBC #### [address] Complete Blood Count Auto Di ffon 04-17-2023 Basophils (Bld) [#/Vol] 0.0 10*3/uL Normal 0.0-0.2 [facility] Comment on above: Result Comment: PERF ORMED BY: [place] [address] PATHOLOGIST [employer] MOOK BROWN M.D. Performed By: #### B MP, MG, CBC #### [place] [address] [place] Basophils/100 WBC (Bld) 0.5 % Normal . F [facility] Comment on above: Performed By: #### B MP, MG, CBC #### [place] [address] [place] Eosinophils (Bld) [#/Vol] 0.3 10*3/uL Normal 0.0-0.45 [facility] Comment on above: Performed By: #### B MP, MG, CBC #### [address] Eosinophils/100 WBC (Bld) 4.0 % Normal . [facility] Comment on above: Performed By: #### B MP, MG, CBC #### [address] Erythrocyte distribution width (RBC) [Ratio] 16.4 % High 12.0-14.8 [facility] Comment on above: Performed By: #### B MP, MG, CBC #### [address] Hematocrit (Bld) [Volume fraction] 37.5 % Low 38.8-50.0 [facility] Comment on above: Performed By: #### B MP, MG, CBC #### [address] Hemoglobin (Bld) [Mass/Vol] 12.6 g/dL Low 13.0-17.0 [facility] Comment on above: Performed By: #### B MP, MG, CBC #### [address] Lymphocytes (Bld) [#/Vol] 1.2 10*3/uL Normal 1.00-4.8 [facility] Comment on above: Performed By: #### B MP, MG, CBC #### [address] Lymphocytes/100 WBC (Bld) 14.4 % Normal . [facility] Comment on above: Performed By: #### B MP, MG, CBC #### [address] MCH (RBC) [Entitic mass] 29.8 pg Normal 27.5-35.2 [facility] Comment on above: Performed By: #### B MP, MG, CBC #### [address] MCV (RBC) [Entitic vol] 89.0 fL Normal 83.5-101 F [facility] Comment on above: Performed By: #### B MP, MG, CBC #### [address] Mean Corpuscular HGB Conc 33.5 g/dL Normal 32.5-35.6 [facility] Comment on above: Performed By: #### B MP, MG, CBC #### [facility] [address] Monocytes (Bld) [#/Vol] 0.8 10*3/uL Normal 0.0-0.8 [facility] Comment on above: Performed By: #### B MP, MG, CBC #### [address] Monocytes/100 WBC (Bld) 10.2 % Normal . F [facility] Comment on above: Performed By: #### B MP, MG, CBC #### [address] Neutrophils (Bld) [#/Vol] 5.8 10*3/uL Normal 1.8-7.7 [facility] Comment on above: Performed By: #### B MP, MG, CBC #### [address] Neutrophils/100 WBC (Bld) 70.9 % Normal . [facility] Comment on above: Performed By: #### B MP, MG, CBC #### [place] [address] [place] NRBC% 0.2 /100{WBC} Normal 0-0.5 [facility] Comment on above: Performed By: #### B MP, MG, CBC #### [address] Platelet mean volume (Bld) [Entitic vol] 9.9 fL Normal 6.6-10.1 [facility] Comment on above: Performed By: #### B MP, MG, CBC #### [facility] [address] Platelets (Bld) [#/Vol] 199 10*3/uL Normal 150-450 [facility] Comment on above: Performed By: #### B MP, MG, CBC #### [facility] [address] RBC (Bld) [#/Vol] 4.21 10*6/uL Normal 3.90-5.60 [facility] Comment on above: Performed By: #### B MP, MG, CBC #### [facility] [address] WBC (Bld) [#/Vol] 8.2 10*3/uL Normal 4.1-10.5 [facility] Comment on above: Performed By: #### B MP, MG, CBC #### [address] Creatinine [Mass/volume] in UrineOrdered By: Nkechi Kc on 04-17-2023 Creatinine (U) [Mass/Vol] 70.0 mg/dL 14.0-26.0 [facility] Creatinine, Urine (Random)on 04-17-2023 Creatinine, Urine (Random) 70.0 mg/dL High 14.0-26.0 [facility] Comment on above: Performed By: #### R EDRAW K, REDRAW MG, REDRAW NA #### [address] Glucose Poct Glucometerson 0 04-17-2023 Commemt1 Glu2: Cleaned Meter Normal [facility] Comment on above: Result Comment: PERF ORMED BY: [place] [address] PATHOLOGIST [employer] MOOK BROWN M.D. Performed By: #### R EDRAW K, REDRAW MG, REDRAW NA #### [address] Glucose [Mass/Vol] 339 mg/dL Normal [facility] Comment on above: Result Comment: [place] om Glucose Reference Range is dependent on time and content of last meal. Glucose of more than 200 mg/dL in a nonstressed, ambulatory subject supports the diagnosis of Diabetes Mellitus. Performed By: #### R MONISHA Baez, REDRAW MG, REDRAW NA #### [address] Glucose mean value [Mass/vol ume] in Blood Estimated from glycated hemoglobinOrdered By: Nkechi Kc on 04-17-2023 Average glucose Estimated from glycated hemoglobin (Bld) [Mass/Vol] 315 mg/dL [facility] Hemoglobin A1c percentageOrd ered By: Nkechi Kc on 04-17-2023 HbA1c (Bld) [Mass fraction] 12.6 % 4.3-5.6 [facility] Comment on above: Increased risk for d iabetes: 5.7 - 6.4diabetes: >6.4glycemic control for adults with diabetes: <7.0 Magnesiumon 04-17-2023 Magnesium [Mass/Vol] 2.3 mg/dL Normal 1.9-2.7 [facility] Comment on above: Result Comment: PERF ORMED BY: [place] [address] PATHOLOGIST [employer] PROFESSION[employer] MOOK BROWN M.D. Performed By: #### B MP, MG, CBC #### [facility] [address] [place] [address] Protein [Mass/volume] in Uri neOrdered By: Nkechi Kc on 04-17-2023 Protein (U) [Mass/Vol] 330 mg/dL 0-9 [facility] Total Protein, Urineon 04-17 Protein (U) [Mass/Vol] 330 mg/dL High 0-9 [facility] Comment on above: Result Comment: PERF ORMED BY: [place] [address] PATHOLOGIST [employer] PROFESSION[employer] MOOK BROWN M.D. Performed By: #### R EDLAVELL K, REDRAW MG, REDRAW NA #### [address] [place] [address] [place] Automated epithelial cells c ount in urine sediment (number/area)Ordered By: Kameron Dos Santos on 04-16-2023 Epithelial cells Auto (Urine sed) [#/Area] None seen [HPF] 0-2 [facility] Automated erythrocytes count in urine sediment (number/area)Ordered By: Kameron Dos Santos on 04-16-2023 RBC Auto (Urine sed) [#/Area] None seen [HPF] 0-4 [facility] Automated leukocytes count i n urine sediment (number/area)Ordered By: Kameron Dos Santos on 04-16-2023 WBC Auto (Urine sed) [#/Area] None seen [HPF] 0-4 [facility] Automated urine hyaline cast s count (number/volume)Ordered By: Kameron Dos Santos on 04-16-2023 Hyaline casts Auto (U) [#/Vol] None seen [LPF] 0-1 [facility] Basic Metabolic Panelon Anion gap [Moles/Vol] 12.7 mmol/L Normal 6.0-15.0 [facility] Comment on above: Performed By: #### R EDLAVELL K REDRAW MG, REDRAW NA #### [facility] [address] [place] [address] Calcium [Mass/Vol] 8.8 mg/dL Normal 8.6-10.3 [facility] Comment on above: Performed By: #### R EDLAVELL K REDRAW MG, REDRAW NA #### [facility] [address] [place] [address] [place] Chloride [Moles/Vol] 100 mmol/L Normal 98-107 [facility] Comment on above: Performed By: #### R EDRALeann K REDRAW MG, REDRAW NA #### [facility] [address] [place] [address] [place] CO2 [Moles/Vol] 28.1 mmol/L Normal 21.0-31.0 [facility] Comment on above: Performed By: #### R EDRAW K REDRAW MG, REDRAW NA #### [facility] [address] Creatinine [Mass/Vol] 2.80 mg/dL High 0.70-1.30 [facility] Comment on above: Performed By: #### R EDRAW K, REDRAW MG, REDRAW NA #### [facility] [address] Creatinine Clr Calc Pharmacy 35.07 [facility] Comment on above: Result Comment: PERF ORMED BY: [place] [address] PATHOLOGIST [employer] PROFESSION[employer] MOOK BROWN M.D. Performed By: #### R MONISHA Baez REDRAW MG, REDRAW NA #### [address] GFR/1.73 sq M.predicted MDRD (S/P/Bld) [Vol rate/Area] 26.487 mL/min/{1.73_m2} [facility] Comment on above: Performed By: #### R AMANDAW K REDRAW MG, REDRAW NA #### [address] Glucose [Mass/Vol] 161 mg/dL High 70-100 [facility] Comment on above: Result Comment: [place] Glucose Reference Range is dependent on time and content of last meal. Glucose of more than 200 mg/dL in a nonstressed, ambulatory subject supports the diagnosis of Diabetes Mellitus. ADA recommended reference range Performed By: #### R EDRALeann K REDRAW MG, REDRAW NA #### [facility] [address] [place] [address] Potassium [Moles/Vol] 3.8 mmol/L Normal 3.5-5.1 [facility] Comment on above: Performed By: #### R EDRAW K, REDRAW MG, REDRAW NA #### [address] Sodium [Moles/Vol] 137 mmol/L Normal 136-145 [facility] Comment on above: Performed By: #### R EDRAW K, REDRAW MG, REDRAW NA #### [facility] [address] Urea nitrogen [Mass/Vol] 54 mg/dL High 7-25 [facility] Comment on above: Performed By: #### R EDRAW K, REDRAW MG, REDRAW NA #### [facility] [address] Anion gap [Moles/Vol] 12.5 mmol/L Normal 6.0-15.0 [facility] Comment on above: Performed By: #### R EDRAW K, REDRAW MG, REDRAW NA #### [facility] [address] [place] [address] Calcium [Mass/Vol] 8.2 mg/dL Low 8.6-10.3 [facility] Comment on above: Performed By: #### R EDRAW K, REDRAW MG, REDRAW NA #### [facility] [address] [place] [address] Chloride [Moles/Vol] 98 mmol/L Normal 98-107 [facility] Comment on above: Performed By: #### R EDRAW K, REDRAW MG, REDRAW NA #### [facility] [address] [place] [address] CO2 [Moles/Vol] 31.8 mmol/L High 21.0-31.0 [facility] Comment on above: Performed By: #### R EDRAW K, REDRAW MG, REDRAW NA #### [facility] [address] Creatinine [Mass/Vol] 3.23 mg/dL High 0.70-1.30 [facility] Comment on above: Performed By: #### R EDRAW K, REDRAW MG, REDRAW NA #### [facility] [address] Creatinine Clr Calc Pharmacy 30.52 [facility] Comment on above: Performed By: #### R EDRAW K REDRAW MG, REDRAW NA #### [address] GFR/1.73 sq M.predicted MDRD (S/P/Bld) [Vol rate/Area] 22.315 mL/min/{1.73_m2} Normal [facility] Comment on above: Performed By: #### R MONISHA Baez REDRAW MG, REDRAW NA #### [address] Glucose [Mass/Vol] 133 mg/dL High 70-100 [facility] Comment on above: Result Comment: [facility] Glucose Reference Range is dependent on time and content of last meal. Glucose of more than 200 mg/dL in a nonstressed, ambulatory subject supports the diagnosis of Diabetes Mellitus. ADA recommended reference range Performed By: #### R MONISHA Baez REDRAW MG, REDRAW NA #### [address] Potassium [Moles/Vol] 3.3 mmol/L Low 3.5-5.1 [facility] Comment on above: Performed By: #### Maurisio Baez REDRAW MG, REDRAW NA #### [address] Sodium [Moles/Vol] 139 mmol/L Normal 136-145 [facility] Comment on above: Performed By: #### Maurisio EDLAVELL K REDRAW MG, REDRAW NA #### [address] Urea nitrogen [Mass/Vol] 56 mg/dL High 7-25 [facility] Comment on above: Performed By: #### R MONISHA Baez REDRAW MG, REDRAW NA #### [address] Bilirubin Test strip Ql (U)O rdered By: Kameron Dos Santos on 04-16-2023 Bilirubin Ql (U) Negative Negative [facility] CT abdomen pelvis wo conon 0 04-16-2023 CT abdomen pelvis wo con [facility] [place] [address] [place] [address] CT Scan Report Signed Patient: Chandler Minor MR#: [id number] 20 : 1970 Acct:[id number] Age/Sex: 52 / M ADM Date: 04/15/23 Loc: Room: [address] [place] [address] Type: ADM IN Attending Dr: Kameron Dos Santos DO Copies to: Kameron Dos Santos DO Ordering Provider: Kameron Dos Santos DO Date of Service: 04/16/23 CT/CT abdomen pelvis wo con: no urine output CT Abdomen and Pelvis withoutcontrast TECHNIQUE: Axial imaging with 2-D reconstruction. . The CT exam was performed using one or more the following dose reduction techniques: Automated exposure control, adjustment of the MA and/or Kv according to patient size, or use of the iterative reconstruction technique. COMPARISON: 08/11/2009 History: Weakness. Weight loss. Abdominal pain. LIMITATIONS: None LOWER THORAX trace pericardial effusion. Minimal basilar atelectasis. LIVER: Hepatic steatosis. GALLBLADDER: No gallbladder abnormality identified. BILE DUCTS: No dilatation SPLEEN: Unremarkable PANCREAS: Unremarkable ADRENAL GLANDS: Mild adenomatous changes. KIDNEYS:No nephrolithiasis or obstructive uropathy. AORTA: No abdominal aortic aneurysm identified. RETROPERITONEUM: No significant retroperitoneal abnormalities identified. MESENTERY:Unremarkable SMALL BOWEL: The small bowel loops are nondistended. APPENDIX: The appendix is normal. COLON: Unremarkable URINARY BLADDER: Marked distention of urinary bladder. REPRODUCTIVE SYSTEM: Reproductive structures are unremarkable. PNEUMOPERITONEUM: None PERITONEAL FLUID:None BONY STRUCTURES: Unremarkable ABDOMINAL WALL: Unremarkable CT/CT abdomen pelvis wo con IMPRESSION: Marked urinary bladder distention. No nephrolithiasis or hydronephrosis. Impression dictated by: Jesu Reese M.D.04/16/2023 6:22 PM Dictation Location: [place] [address] Transcribed By: [facility] 04/16/231821 Dictated By: Jesu Reese DO 04/16/231817 Signed By: 04/16/231821 Normal [facility] Color Auto (U)Ordered By: Rona Dos Santos on 04-16-2023 Color (U) Yellow Yellow [facility] Complete Blood Count Auto Di ffon 04-16-2023 Basophils (Bld) [#/Vol] 0.0 10*3/uL Normal 0.0-0.2 [facility] Comment on above: Result Comment: PERF ORMED BY: [place] [address] PATHOLOGIST [employer] MOOK BROWN M.D. Performed By: #### R EDRAW K, REDRAW MG, REDRAW NA #### [address] Basophils/100 WBC (Bld) 0.5 % Normal . [facility] Comment on above: Performed By: #### R EDRAW K, REDRAW MG, REDRAW NA #### [address] Eosinophils (Bld) [#/Vol] 0.3 10*3/uL Normal 0.0-0.45 [facility] Comment on above: Performed By: #### R EDRAW K, REDRAW MG, REDRAW NA #### [address] Eosinophils/100 WBC (Bld) 3.7 % Normal . [facility] Comment on above: Performed By: #### R EDRAW K, REDRAW MG, REDRAW NA #### [facility] [address] [place] [address] Erythrocyte distribution width (RBC) [Ratio] 16.3 % High 12.0-14.8 [facility] Comment on above: Performed By: #### R EDRAW K, REDRAW MG, REDRAW NA #### [facility] [address] [place] [address] Hematocrit (Bld) [Volume fraction] 38.1 % Low 38.8-50.0 [facility] Comment on above: Performed By: #### R EDRAW K, REDRAW MG, REDRAW NA #### [facility] [address] [place] [address] Hemoglobin (Bld) [Mass/Vol] 12.6 g/dL Low 13.0-17.0 [facility] Comment on above: Performed By: #### R EDRAW K, REDRAW MG, REDRAW NA #### [address] Lymphocytes (Bld) [#/Vol] 1.4 10*3/uL Normal 1.00-4.8 [facility] Comment on above: Performed By: #### R EDRAW K, REDRAW MG, REDRAW NA #### [address] Lymphocytes/100 WBC (Bld) 17.7 % Normal . [facility] Comment on above: Performed By: #### R EDRAW K, REDRAW MG, REDRAW NA #### [address] MCH (RBC) [Entitic mass] 29.7 pg Normal 27.5-35.2 [facility] Comment on above: Performed By: #### R EDRAW K, REDRAW MG, REDRAW NA #### [address] MCV (RBC) [Entitic vol] 90.3 fL Normal 83.5-101 F [facility] Comment on above: Performed By: #### R EDRAW K, REDRAW MG, REDRAW NA #### [address] Mean Corpuscular HGB Conc 32.9 g/dL Normal 32.5-35.6 [facility] Comment on above: Performed By: #### R EDRAW K, REDRAW MG, REDRAW NA #### [address] Monocytes (Bld) [#/Vol] 0.7 10*3/uL Normal 0.0-0.8 [facility] Comment on above: Performed By: #### R EDRAW K, REDRAW MG, REDRAW NA #### [address] [place] [address] [place] Monocytes/100 WBC (Bld) 8.8 % Normal . F [facility] Comment on above: Performed By: #### R EDRAW K, REDRAW MG, REDRAW NA #### [facility] [address] [place] [address] Neutrophils (Bld) [#/Vol] 5.4 10*3/uL Normal 1.8-7.7 [facility] Comment on above: Performed By: #### R EDRAW K, REDRAW MG, REDRAW NA #### [facility] [address] [place] [address] Neutrophils/100 WBC (Bld) 69.3 % Normal . [facility] Comment on above: Performed By: #### R EDRAW K, REDRAW MG, REDRAW NA #### [address] NRBC% 0.1 /100{WBC} Normal 0-0.5 [facility] Comment on above: Performed By: #### R EDRAW K, REDRAW MG, REDRAW NA #### [facility] [address] [place] [address] Platelet mean volume (Bld) [Entitic vol] 9.5 fL Normal 6.6-10.1 [facility] Comment on above: Performed By: #### R EDRAW K, REDRAW MG, REDRAW NA #### [facility] [address] [place] [address] Platelets (Bld) [#/Vol] 187 10*3/uL Normal 150-450 [facility] Comment on above: Performed By: #### R EDRAW K, REDRAW MG, REDRAW NA #### [address] RBC (Bld) [#/Vol] 4.22 10*6/uL Normal 3.90-5.60 [facility] Comment on above: Performed By: #### R EDRAW K, REDRAW MG, REDRAW NA #### [facility] [address] [place] [address] WBC (Bld) [#/Vol] 7.8 10*3/uL Normal 4.1-10.5 [facility] Comment on above: Performed By: #### R EDRAW K, REDRAW MG, REDRAW NA #### [facility] [address] [place] [address] Creatinine, Urine (Random)on 04-16-2023 Creatinine, Urine (Random) 57.0 mg/dL High 14.0-26.0 [facility] Comment on above: Result Comment: PERF ORMED BY: [place] [address] PATHOLOGIST [employer]ESSION[employer] MOOK BROWN M.D. Performed By: #### R EDRAW K, REDRAW MG, REDRAW NA #### [facility] [address] [place] [address] [place] Dipstick and Microscopicon 0 04-16-2023 Appearance (U) Clear Normal Clear [facility] Comment on above: Order Comment: Name Collection Type:: Clean-Voided Midstream Performed By: #### R EDRAW K, REDRAW MG, REDRAW NA #### [facility] [address] [place] [address] Bacteria,Urine None Seen Normal None Seen [facility] Comment on above: Order Comment: Name Collection Type:: Clean-Voided Midstream Performed By: #### R EDRAW K, REDRAW MG, REDRAW NA #### [facility] [address] [place] [address] [place] Bilirubin,Urine Negative Normal Negative [facility] Comment on above: Order Comment: Name Collection Type:: Clean-Voided Midstream Performed By: #### R EDRAW K, REDRAW MG, REDRAW NA #### [facility] [address] [place] [address] [place] Color (U) Yellow Normal Yellow [facility] Comment on above: Order Comment: Name Collection Type:: Clean-Voided Midstream Performed By: #### R EDRAW K, REDRAW MG, REDRAW NA #### [facility] [address] [place] [address] Glucose Ql (U) >=1000 High Normal [facility] Comment on above: Order Comment: Name Collection Type:: Clean-Voided Midstream Performed By: #### R EDRAW K, REDRAW MG, REDRAW NA #### [facility] [address] [place] [address] Hyaline Casts,Urine None Seen Normal 0-1 [facility] Comment on above: Order Comment: Name Collection Type:: Clean-Voided Midstream Result Comment: PERF ORMED BY: [place] [address] PATHOLOGIST [employer] PROFESSIONAL MOOK BROWN M.D. Performed By: #### R EDRAW K, REDRAW MG, REDRAW NA #### [facility] [address] [place] [address] Ketones Ql (U) Negative Normal Negative [facility] Comment on above: Order Comment: Name Collection Type:: Clean-Voided Midstream Performed By: #### R EDRAW K, REDRAW MG, REDRAW NA #### [address] Leukocyte esterase Test strip Ql (U) Negative Normal Negative [facility] Comment on above: Order Comment: Name Collection Type:: Clean-Voided Midstream Performed By: #### R EDRAW K, REDRAW MG, REDRAW NA #### [facility] [address] [place] [address] [place] Nitrite,Urine Negative Normal Negative [facility] Comment on above: Order Comment: Name Collection Type:: Clean-Voided Midstream Performed By: #### R EDRAW K, REDRAW MG, REDRAW NA #### [address] Occult Blood,Urine Negative Normal Negative [facility] Comment on above: Order Comment: Name Collection Type:: Clean-Voided Midstream Result Comment: PERF ORMED BY: [place] [address] PATHOLOGIST [employer] PROFESSIONAL MOOK BROWN M.D. Performed By: #### R EDRAW K, REDRAW MG, REDRAW NA #### [facility] [address] [place] [address] pH (U) 6.5 [pH] Normal 5.0-9.0 [facility] Comment on above: Order Comment: Name Collection Type:: Clean-Voided Midstream Performed By: #### R EDRAW K, REDRAW MG, REDRAW NA #### [facility] [address] [place] [address] Protein (U) [Mass/Vol] 300 mg/dL High Negative [facility] Comment on above: Order Comment: Name Collection Type:: Clean-Voided Midstream Performed By: #### R EDRAW K, REDRAW MG, REDRAW NA #### [facility] [address] [place] [address] RBC,Urine None Seen Normal 0-4 [facility] Comment on above: Order Comment: Name Collection Type:: Clean-Voided Midstream Performed By: #### R EDRAW K, REDRAW MG, REDRAW NA #### [address] Specificy [place],Urine 1.017 Normal 1.00 1-1.03 0 [facility] Comment on above: Order Comment: Name Collection Type:: Clean-Voided Midstream Performed By: #### R EDRAW K, REDRAW MG, REDRAW NA #### [facility] [address] [place] [address] Squamous Epithelial Cell,Urine None Seen Normal 0-2 [facility] Comment on above: Order Comment: Name Collection Type:: Clean-Voided Midstream Performed By: #### R EDRAW K, REDRAW MG, REDRAW NA #### [facility] [address] [place] [address] Urobilinogen,Urine Normal Normal Normal [facility] Comment on above: Order Comment: Name Collection Type:: Clean-Voided Midstream Performed By: #### R EDRAW K, REDRAW MG, REDRAW NA #### [facility] [address] [place] [address] WBC,Urine None Seen Normal 0-4 [facility] Comment on above: Order Comment: Name Collection Type:: Clean-Voided Midstream Performed By: #### R EDRAW K, REDRAW MG, REDRAW NA #### [address] Glucose Poct Glucometerson 0 04-16-2023 Commemt1 Glu2: Cleaned Meter Normal [facility] Comment on above: Result Comment: PERF ORMED BY: [place] [address] PATHOLOGIST [employer] PROFESSIONAL MOOK BROWN M.D. Performed By: #### R EDRAW K, REDRAW MG, REDRAW NA #### [address] Glucose [Mass/Vol] 193 mg/dL Normal [facility] Comment on above: Result Comment: [facility] Glucose Reference Range is dependent on time and content of last meal. Glucose of more than 200 mg/dL in a nonstressed, ambulatory subject supports the diagnosis of Diabetes Mellitus. Performed By: #### R EDRAW K, REDRAW MG, REDRAW NA #### [facility] [address] [place] [address] Ketones Auto test strip (U) [Mass/Vol]Ordered By: Kameron Dos Santos on 04-16-2023 Ketones (U) [Mass/Vol] Negative Negative [facility] Magnesiumon 04-16-2023 Magnesium [Mass/Vol] 2.3 mg/dL Normal 1.9-2.7 [facility] Comment on above: Result Comment: PERF ORMED BY: [place] [address] PATHOLOGIST [employer] PROFESSIONAL MOOK BROWN M.D. Performed By: #### R EDRAW K, REDRAW MG, REDRAW NA #### [facility] [address] [id number] [place] Nitrite Test strip Ql (U)Ord ered By: Kameron Dos Santos on 04-16-2023 Nitrite Ql (U) Negative Negative [facility] Protein Auto test strip (U) [Mass/Vol]Ordered By: Kameron Dos Santos on 04-16-2023 Protein (U) [Mass/Vol] 300 mg/dL Negative [facility] Sodium [Moles/volume] in Uri neOrdered By: Kameron Dos Santos on 04-16-2023 Sodium (U) [Moles/Vol] 67.0 mmol/L F [facility] Comment on above: No reference range e stablished Sodium, Urineon 04-16-2023 Sodium (U) [Moles/Vol] 67.0 mmol/L Normal F [facility] Comment on above: Result Comment: No r eference range established Performed By: #### R ORIANA SHETTY, REDRAW NA #### [facility] [address] [place], [place] [id number] [facility] Specific gravity Auto test s trip (U) [Rel density]Ordered By: Kameron Dos Santos on 04-16-2023 Specific gravity (U) [Rel density] 1.017 1.001-1.03 0 [facility] Urine bacteria detection by automated methodOrdered By: Kameron Dos Santos on 04-16-2023 Bacteria Auto Ql (U) None seen None Seen [facility] Urine clarity by refractomet ry automatedOrdered By: Kameron Dos Santos on 04-16-2023 Clarity Refractometry automated (U) Clear Clear [facility] Urine glucose measurement by automated test strip (mass/volume)Ordered By: Kameron Dos Santos on 04-16-2023 Glucose Auto test strip (U) [Mass/Vol] >=1000 mg/dL Normal [facility] Urine hemoglobin detection b y automated test stripOrdered By: Kameron Dos Santos on 04-16-2023 Hemoglobin Auto test strip Ql (U) Negative Negative [facility] Urine leukocyte esterase det ection by automated test stripOrdered By: Kameron Dos Santos on 04-16-2023 Leukocyte esterase Auto test strip Ql (U) Negative Negative [facility] Urobilinogen Auto test strip (U) [Mass/Vol]Ordered By: Kameron Dos Santos on 04-16-2023 Urobilinogen (U) [Mass/Vol] Normal mg/dL Normal [facility] pH Auto test strip (U)Ordere d By: Kameron Dos Santos on 04-16-2023 pH (U) 6.5 [pH] 5.0-9.0 [facility] OSMOLALITY URINEon 3 Osmolality, Urine 330 mOsmol/kg Normal [facility] Comment on above: Result Comment: 24 h r : 300 - 900 Random: 50 - 1400 After 12hr fluid restriction: >850 Performed By: #### P OCGLUC #### [facility] [address] [place] [address] Dr. Spring Nash BNPon 03-09-2023 Natriuretic peptide B (Bld) [Mass/Vol] 1950.0 pg/mL Critically high <=900.0 [facility] Comment on above: Performed By: #### B MP #### [facility] [address] [place] [address] Dr. Spring Nash CBC AUTO DIFFon 03-09-2023 BASO # 0.0 103/ul Normal 0.0-0.1 [facility] Comment on above: Performed By: #### C MP, HSTROPN, BNP #### [facility] [address] [place] [address] Dr. Spring Nash Basophils/100 WBC (Bld) 0.3 % Normal 0.2-2.0 [facility] Comment on above: Performed By: #### C MP, HSTROPN, BNP #### [facility] [address] [place] [address] Dr. Spring Nash EO # 0.3 103/ul Normal 0.0-0.7 [facility] Comment on above: Performed By: #### C MP, HSTROPN, BNP #### [facility] [address] [place] [address] Dr. Spring Nash Eosinophils/100 WBC (Bld) 5.9 % Normal 0.9-7.0 [facility] Comment on above: Performed By: #### C MP, HSTROPN, BNP #### [facility] [address] [place] [address] Dr. Spring Nash Erythrocyte distribution width (RBC) [Ratio] 15.6 % Critically high 11.0-15.0 [facility] Comment on above: Performed By: #### C MP, HSTROPN, BNP #### [facility] [address] [place] [address] Dr. Spring Nash Hematocrit (Bld) [Volume fraction] 31.4 % Critically low 42.0-54.0 [facility] Comment on above: Performed By: #### C MP, HSTROPN, BNP #### [facility] [address] [place] [address] Dr. Spring Nash Hemoglobin (Bld) [Mass/Vol] 10.0 g/dL Critically low 14.0-18.0 [facility] Comment on above: Performed By: #### C MP, HSTROPN, BNP #### [facility] [address] [place] [address] Dr. Spring Nash IG # 0.02 10e3/ul Normal 0.00-0.03 [facility] Comment on above: Performed By: #### C MP, HSTROPN, BNP #### [facility] [address] [place] [address] Dr. Spring Nash IG % 0.3 % Normal 0.0-0.5 [facility] Comment on above: Performed By: #### C MP, HSTROPN, BNP #### [facility] [address] [place] [address] Dr. Spring Nash LYMPH # 1.0 103/ul Critically low 1.2-3.8 [facility] Comment on above: Performed By: #### C MP, HSTROPN, BNP #### [facility] [address] [place] [address] Dr. Spring Nash Lymphocytes/100 WBC (Bld) 17.6 % Critically low 20.5-60.0 [facility] Comment on above: Performed By: #### C MP, HSTROPN, BNP #### [facility] [address] [address] [address] Spring Nash MANUAL DIFF REQ NO Normal [facility] Comment on above: Performed By: #### C MP, HSTROPN, BNP #### [facility] [address] [place] [address] Dr. Spring Nash MCH (RBC) [Entitic mass] 29.3 pg Normal 25.9-34.0 [facility] Comment on above: Performed By: #### C MP, HSTROPN, BNP #### [facility] [address] [place] [address] Dr. Spring Nash MCHC (RBC) [Mass/Vol] 31.8 g/dL Normal 29.9-35.2 [facility] Comment on above: Performed By: #### C MP, HSTROPN, BNP #### [facility] [address] [place] [address] Dr. Spring Nash MCV (RBC) [Entitic vol] 92.1 fL Normal 80.0-94.0 [facility] Comment on above: Performed By: #### C MP, HSTROPN, BNP #### [facility] [address] [place] [address] Dr. Spring Nash MONO # 0.6 103/ul Normal 0.3-0.8 [facility] Comment on above: Performed By: #### C MP, HSTROPN, BNP #### [facility] [address] [place] [address] Dr. Spring Nash Monocytes/100 WBC (Bld) 9.9 % Normal 1.7-12.0 [facility] Comment on above: Performed By: #### C MP, HSTROPN, BNP #### [facility] [address] [place] [address] Dr. Spring Nash NEUT # 3.8 103/ul Normal 1.4-6.5 [facility] Comment on above: Performed By: #### C MP, HSTROPN, BNP #### [facility] [address] [address] [address] Spring Nash Neutrophils/100 WBC (Bld) 66.0 % Normal 43.0-75.0 [facility] Comment on above: Performed By: #### C MP, HSTROPN, BNP #### [facility] [address] [address] [address] Spring Nash Platelet mean volume (Bld) [Entitic vol] 11.6 fL Normal 9.5-13.5 [facility] Comment on above: Performed By: #### C MP, HSTROPN, BNP #### [facility] [address] [address] [address] Spring Nash PLT 213 103/ul Normal 150-450 [facility] Comment on above: Performed By: #### C MP, HSTROPN, BNP #### [facility] [address] [place] [address] Dr. Spring Nash RBC 3.41 106/ul Critically low 4.70-6.10 [facility] Comment on above: Performed By: #### C MP, HSTROPN, BNP #### [facility] [address] [address] [address] Spring Nash WBC 5.7 103/ul Normal 4.0-11.0 [facility] Comment on above: Performed By: #### C MP, HSTROPN, BNP #### [facility] [address] [address] [address] Spring Nash POINT OF CARE GLUCOSEon 02-12 Glucose [Mass/Vol] 233 mg/dL Critically high 74-106 [facility] Comment on above: Performed By: #### B MP #### [facility] [address] [place] [address] Dr. Spring Nash Glucose [Mass/Vol] 129 mg/dL Critically high 74-106 [facility] Comment on above: Performed By: #### C MP, HSTROPN, BNP #### [facility] [address] [address] [address] Spring Nash PROF 14(COMP METB)on 023 Albumin [Mass/Vol] 2.5 g/dL Critically low 3.4-5.0 [facility] Comment on above: Performed By: #### B MP #### [facility] [address] [place] [address] Dr. Spring Nash Albumin/Globulin [Mass ratio] 0.8 {ratio} Normal [facility] Comment on above: Performed By: #### B MP #### [facility] [address] [place] [address] Dr. Spring Nash ALP [Catalytic activity/Vol] 105 U/L Normal 46-116 [facility] Comment on above: Performed By: #### B MP #### [facility] [address] [place] [address] Dr. Spring Nash ALT [Catalytic activity/Vol] 18 U/L Normal 16-63 [facility] Comment on above: Performed By: #### B MP #### [facility] [address] [place] [address] Dr. Spring Nash Anion gap [Moles/Vol] 10.3 mmol/L Normal [facility] Comment on above: Performed By: #### B MP #### [facility] [address] [place] [address] Dr. Spring Nash AST [Catalytic activity/Vol] 14 U/L Critically low 15-37 [facility] Comment on above: Performed By: #### B MP #### [facility] [address] [place] [address] Dr. Spring Nash Bilirubin [Mass/Vol] 0.3 mg/dL Normal 0.2-1.0 [facility] Comment on above: Performed By: #### B MP #### [facility] [address] [place] [address] Dr. Spring Nash Calcium [Mass/Vol] 8.4 mg/dL Critically low 8.5-10.1 [facility] Comment on above: Performed By: #### B MP #### [facility] [address] [place] [address] Dr. Spring Nash Chloride [Moles/Vol] 106 mmol/L Normal 98-107 [facility] Comment on above: Performed By: #### B MP #### [facility] [address] [address] [address] Spring Nash CO2 [Moles/Vol] 30.2 mmol/L Normal 21.0-32.0 [facility] Comment on above: Performed By: #### B MP #### [facility] [address] [address] [address] Spring Nash Creatinine [Mass/Vol] 2.95 mg/dL Critically high 0.70-1.30 [facility] Comment on above: Performed By: #### B MP #### [facility] [address] [place] [address] Dr. Spring Nash EGFR-AF [place] 27 mL/min/1.73m2 Critically low >=60 [facility] Comment on above: Performed By: #### B MP #### [facility] [address] [address] [address] Spring Nash EGFR-NON AF [place] 23 mL/min/1.73m2 Critically low >=60 [facility] Comment on above: Performed By: #### B MP #### [facility] [address] [place] [address] Dr. Spring Nash Globulin (S) [Mass/Vol] 3.2 g/dL Normal [facility] Comment on above: Performed By: #### B MP #### [facility] [address] [address] [address] Spring Nash Glucose [Mass/Vol] 153 mg/dL Critically high 74-106 [facility] Comment on above: Performed By: #### B MP #### [facility] [address] [address] [address] Spring Nash Potassium [Moles/Vol] 4.5 mmol/L Normal 3.5-5.1 [facility] Comment on above: Performed By: #### B MP #### [facility] [address] [address] [address] Spring Nash Protein [Mass/Vol] 5.7 g/dL Critically low 6.4-8.2 [facility] Comment on above: Performed By: #### B MP #### [facility] [address] [place] [address] Dr. Spring Nash Sodium [Moles/Vol] 142 mmol/L Normal 136-145 [facility] Comment on above: Performed By: #### B MP #### [facility] [address] [place] [address] Dr. Spring Nash Urea nitrogen [Mass/Vol] 50.0 mg/dL Critically high 7.0-18.0 [facility] Comment on above: Performed By: #### B MP #### [facility] [address] [place] [address] Dr. Spring Nash Urea nitrogen/Creatinine [Mass ratio] 16.9 mg/mg Normal [facility] Comment on above: Performed By: #### B MP #### [facility] [address] [place] [address] Dr. Spring Nash BNPon 03-08-2023 Natriuretic peptide B (Bld) [Mass/Vol] 2675.0 pg/mL Critically high <=900.0 [facility] Comment on above: Performed By: #### P OCGLUC #### [facility] [address] [place] [address] Dr. Spring Nash CBC AUTO DIFFon 03-08-2023 BASO # 0.0 103/ul Normal 0.0-0.1 [facility] Comment on above: Performed By: #### C MP, HSTROPN, BNP #### [facility] [address] [place] [address] Dr. Spring Nash Basophils/100 WBC (Bld) 0.5 % Normal 0.2-2.0 [facility] Comment on above: Performed By: #### C MP, HSTROPN, BNP #### [facility] [address] [place] [address] Dr. Spring Nash EO # 0.4 103/ul Normal 0.0-0.7 [facility] Comment on above: Performed By: #### C MP, HSTROPN, BNP #### [facility] [address] [place] [address] Dr. Spring Nash Eosinophils/100 WBC (Bld) 5.3 % Normal 0.9-7.0 [facility] Comment on above: Performed By: #### C MP, HSTROPN, BNP #### [facility] [address] [place] [address] Dr. Spring Nash Erythrocyte distribution width (RBC) [Ratio] 15.5 % Critically high 11.0-15.0 [facility] Comment on above: Performed By: #### C MP, HSTROPN, BNP #### [facility] [address] [place] [address] Dr. Spring Nash Hematocrit (Bld) [Volume fraction] 30.5 % Critically low 42.0-54.0 [facility] Comment on above: Performed By: #### C MP, HSTROPN, BNP #### [facility] [address] [place] [address] Dr. Spring Nash Hemoglobin (Bld) [Mass/Vol] 9.7 g/dL Critically low 14.0-18.0 [facility] Comment on above: Performed By: #### C MP, HSTROPN, BNP #### [facility] [address] [place] [address] Dr. Spring Nash IG # 0.03 10e3/ul Normal 0.00-0.03 [facility] Comment on above: Performed By: #### C MP, HSTROPN, BNP #### [facility] [address] [place] [address] Dr. Spring Nash IG % 0.5 % Normal 0.0-0.5 [facility] Comment on above: Performed By: #### C MP, HSTROPN, BNP #### [facility] [address] [place] [address] Dr. Spring Nash LYMPH # 1.0 103/ul Critically low 1.2-3.8 [facility] Comment on above: Performed By: #### C MP, HSTROPN, BNP #### [facility] [address] [place], [place] [id number] Dr. Spring Nash Lymphocytes/100 WBC (Bld) 14.9 % Critically low 20.5-60.0 [facility] Comment on above: Performed By: #### C MP, HSTROPN, BNP #### [facility] [address] [place] [address] Dr. Spring Nash MANUAL DIFF REQ NO Normal [facility] Comment on above: Performed By: #### C MP, HSTROPN, BNP #### [facility] [address] [place] [address] Dr. Spring Nash MCH (RBC) [Entitic mass] 29.6 pg Normal 25.9-34.0 [facility] Comment on above: Performed By: #### C MP, HSTROPN, BNP #### [facility] [address] [place] [address] Dr. Spring Nash MCHC (RBC) [Mass/Vol] 31.8 g/dL Normal 29.9-35.2 [facility] Comment on above: Performed By: #### C MP, HSTROPN, BNP #### [facility] [address] [place] [address] Dr. Spring Nash MCV (RBC) [Entitic vol] 93.0 fL Normal 80.0-94.0 [facility] Comment on above: Performed By: #### C MP, HSTROPN, BNP #### [facility] [address] [place] [address] Dr. Spring Nash MONO # 0.5 103/ul Normal 0.3-0.8 [facility] Comment on above: Performed By: #### C MP, HSTROPN, BNP #### [facility] [address] [place] [address] Dr. Spring Nash Monocytes/100 WBC (Bld) 7.9 % Normal 1.7-12.0 [facility] Comment on above: Performed By: #### C MP, HSTROPN, BNP #### [facility] [address] [place] [address] Dr. Spring Nash NEUT # 4.7 103/ul Normal 1.4-6.5 [facility] Comment on above: Performed By: #### C MP, HSTROPN, BNP #### [facility] [address] [place] [address] Dr. Spring Nash Neutrophils/100 WBC (Bld) 70.9 % Normal 43.0-75.0 [facility] Comment on above: Performed By: #### C MP, HSTROPN, BNP #### [facility] [address] [address] [address] Spring Nash Platelet mean volume (Bld) [Entitic vol] 11.7 fL Normal 9.5-13.5 [facility] Comment on above: Performed By: #### C MP, HSTROPN, BNP #### [facility] [address] [place] [address] Dr. Spring Nash PLT 204 103/ul Normal 150-450 [facility] Comment on above: Performed By: #### C MP, HSTROPN, BNP #### [facility] [address] [place] [address] Dr. Spring Nash RBC 3.28 106/ul Critically low 4.70-6.10 [facility] Comment on above: Performed By: #### C MP, HSTROPN, BNP #### [facility] [address] [place] [address] Dr. Spring Nash WBC 6.6 103/ul Normal 4.0-11.0 [facility] Comment on above: Performed By: #### C MP, HSTROPN, BNP #### [facility] [address] [place] [address] Dr. Spring Nash POINT OF CARE GLUCOSEon 02-12 Glucose [Mass/Vol] 273 mg/dL Critically high 74-106 [facility] Comment on above: Performed By: #### P OCGLUC #### [facility] [address] [place] [address] Dr. Spring Nash Glucose [Mass/Vol] 194 mg/dL Critically high 74-106 [facility] Comment on above: Performed By: #### B MP #### [facility] [address] [address] [address] Spring Nash Glucose [Mass/Vol] 226 mg/dL Critically high 74-106 [facility] Comment on above: Performed By: #### P OCGLUC #### [facility] [address] [address] [address] Spring Nash PROF 14(COMP METB)on 023 Albumin [Mass/Vol] 2.5 g/dL Critically low 3.4-5.0 [facility] Comment on above: Performed By: #### P OCGLUC #### [facility] [address] [address] [address] Spring Nash Albumin/Globulin [Mass ratio] 0.8 {ratio} Normal [facility] Comment on above: Performed By: #### P OCGLUC #### [facility] [address] [address] [address] Spring Nash ALP [Catalytic activity/Vol] 114 U/L Normal 46-116 [facility] Comment on above: Performed By: #### P OCGLUC #### [facility] [address] [address] [address] Spring Nash ALT [Catalytic activity/Vol] 15 U/L Critically low 16-63 [facility] Comment on above: Performed By: #### P OCGLUC #### [facility] [address] [address] [address] Spring Nash Anion gap [Moles/Vol] 12.2 mmol/L Normal [facility] Comment on above: Performed By: #### P OCGLUC #### [facility] [address] [address] [address] Spring Nash AST [Catalytic activity/Vol] 14 U/L Critically low 15-37 [facility] Comment on above: Performed By: #### P OCGLUC #### [facility] [address] [address] [address] Spring Nash Bilirubin [Mass/Vol] 0.3 mg/dL Normal 0.2-1.0 [facility] Comment on above: Performed By: #### P OCGLUC #### [facility] [address] [address] [address] Spring Nash Calcium [Mass/Vol] 8.4 mg/dL Critically low 8.5-10.1 [facility] Comment on above: Performed By: #### P OCGLUC #### [facility] [address] [address] [address] Spring Nash Chloride [Moles/Vol] 106 mmol/L Normal 98-107 [facility] Comment on above: Performed By: #### P OCGLUC #### [facility] [address] [address] [address] Spring Nash CO2 [Moles/Vol] 27.3 mmol/L Normal 21.0-32.0 [facility] Comment on above: Performed By: #### P OCGLUC #### [facility] [address] [address] [address] Spring Nash Creatinine [Mass/Vol] 3.20 mg/dL Critically high 0.70-1.30 [facility] Comment on above: Performed By: #### P OCGLUC #### [facility] [address] [address] [address] Spring Nash EGFR-AF COSTA RICAN 25 mL/min/1.73m2 Critically low >=60 [facility] Comment on above: Performed By: #### P OCGLUC #### [facility] [address] [address] [address] Spring Nash EGFR-NON AF COSTA RICAN 21 mL/min/1.73m2 Critically low >=60 [facility] Comment on above: Performed By: #### P OCGLUC #### [facility] [address] [address] [address] Spring Nash Globulin (S) [Mass/Vol] 3.1 g/dL Normal [facility] Comment on above: Performed By: #### P OCGLUC #### [facility] [address] [address] [address] Spring Nash Glucose [Mass/Vol] 207 mg/dL Critically high 74-106 [facility] Comment on above: Performed By: #### P OCGLUC #### [facility] [address] [address] [address] Spring Nash Potassium [Moles/Vol] 4.5 mmol/L Normal 3.5-5.1 [facility] Comment on above: Performed By: #### P OCGLUC #### [facility] [address] [address] [address] Spring Nash Protein [Mass/Vol] 5.6 g/dL Critically low 6.4-8.2 [facility] Comment on above: Performed By: #### P OCGLUC #### [facility] [address] [address] [address] Spring Nash Sodium [Moles/Vol] 141 mmol/L Normal 136-145 [facility] Comment on above: Performed By: #### P OCGLUC #### [facility] [address] [place] [address] Dr. Spring Nash Urea nitrogen [Mass/Vol] 52.0 mg/dL Critically high 7.0-18.0 [facility] Comment on above: Performed By: #### P OCGLUC #### [facility] [address] [address] [address] Spring Nash Urea nitrogen/Creatinine [Mass ratio] 16.2 mg/mg Normal [facility] Comment on above: Performed By: #### P OCGLUC #### [facility] [address] [place] [address] Dr. Spring Nash BNPon 03-07-2023 Natriuretic peptide B (Bld) [Mass/Vol] 4010.0 pg/mL Critically high <=900.0 [facility] Comment on above: Performed By: #### C MP #### [facility] [address] [place] [address] Dr. Spring Nash CBC AUTO DIFFon 03-07-2023 BASO # 0.0 103/ul Normal 0.0-0.1 [facility] Comment on above: Performed By: #### P OCGLUC #### [facility] [address] [place] [address] Dr. Spring Nash Basophils/100 WBC (Bld) 0.3 % Normal 0.2-2.0 [facility] Comment on above: Performed By: #### P OCGLUC #### [facility] [address] [place] [address] Dr. Spring Nash EO # 0.3 103/ul Normal 0.0-0.7 [facility] Comment on above: Performed By: #### P OCGLUC #### [facility] [address] [place] [address] Dr. Spring Nash Eosinophils/100 WBC (Bld) 5.2 % Normal 0.9-7.0 [facility] Comment on above: Performed By: #### P OCGLUC #### [facility] [address] [place] [address] Dr. Spring Nash Erythrocyte distribution width (RBC) [Ratio] 15.7 % Critically high 11.0-15.0 [facility] Comment on above: Performed By: #### P OCGLUC #### [facility] [address] [place] [address] Dr. Spring Nash Hematocrit (Bld) [Volume fraction] 31.0 % Critically low 42.0-54.0 [facility] Comment on above: Performed By: #### P OCGLUC #### [facility] [address] [place] [address] Dr. Spring Nash Hemoglobin (Bld) [Mass/Vol] 9.6 g/dL Critically low 14.0-18.0 [facility] Comment on above: Performed By: #### P OCGLUC #### [facility] [address] [place] [address] Dr. Spring Nahs IG # 0.03 10e3/ul Normal 0.00-0.03 [facility] Comment on above: Performed By: #### P OCGLUC #### [facility] [address] [place] [address] Dr. Spring Nash IG % 0.5 % Normal 0.0-0.5 [facility] Comment on above: Performed By: #### P OCGLUC #### [facility] [address] [place] [address] Dr. Spring Nash LYMPH # 0.8 103/ul Critically low 1.2-3.8 [facility] Comment on above: Performed By: #### P OCGLUC #### [facility] [address] [place] [address] Dr. Spring Nash Lymphocytes/100 WBC (Bld) 11.8 % Critically low 20.5-60.0 [facility] Comment on above: Performed By: #### P OCGLUC #### [facility] [address] [address] [address] Spring Nash MANUAL DIFF REQ NO Normal [facility] Comment on above: Performed By: #### P OCGLUC #### [facility] [address] [place] [address] Dr. Spring Nash MCH (RBC) [Entitic mass] 29.1 pg Normal 25.9-34.0 [facility] Comment on above: Performed By: #### P OCGLUC #### [facility] [address] [place] [address] Dr. Spring Nash MCHC (RBC) [Mass/Vol] 31.0 g/dL Normal 29.9-35.2 [facility] Comment on above: Performed By: #### P OCGLUC #### [facility] [address] [place] [address] Dr. Spring Nash MCV (RBC) [Entitic vol] 93.9 fL Normal 80.0-94.0 [facility] Comment on above: Performed By: #### P OCGLUC #### [facility] [address] [place] [address] Dr. Spring Nash MONO # 0.5 103/ul Normal 0.3-0.8 [facility] Comment on above: Performed By: #### P OCGLUC #### [facility] [address] [place] [address] Dr. Spring Nash Monocytes/100 WBC (Bld) 7.4 % Normal 1.7-12.0 [facility] Comment on above: Performed By: #### P OCGLUC #### [facility] [address] [place] [address] Dr. Spring Nash NEUT # 4.9 103/ul Normal 1.4-6.5 [facility] Comment on above: Performed By: #### P OCGLUC #### [facility] [address] [address] [address] Spring Nash Neutrophils/100 WBC (Bld) 74.8 % Normal 43.0-75.0 [facility] Comment on above: Performed By: #### P OCGLUC #### [facility] [address] [address] [address] Spring Nash Platelet mean volume (Bld) [Entitic vol] 11.7 fL Normal 9.5-13.5 [facility] Comment on above: Performed By: #### P OCGLUC #### [facility] [address] [place] [address] Dr. Spring Nash PLT 195 103/ul Normal 150-450 [facility] Comment on above: Performed By: #### P OCGLUC #### [facility] [address] [place] [address] Dr. Spring Nash RBC 3.30 106/ul Critically low 4.70-6.10 [facility] Comment on above: Performed By: #### P OCGLUC #### [facility] [address] [place] [address] Dr. Spring Nash WBC 6.6 103/ul Normal 4.0-11.0 [facility] Comment on above: Performed By: #### P OCGLUC #### [facility] [address] [place] [address] Dr. Spring Nash CHLORIDE URINE RANDOMon 02-12 Chloride, Urine 106 mmol/L Normal Not Estab. [facility] Comment on above: Performed By: #### P OCGLUC #### [facility] [address] [place] [address] Dr. Spring Nash POINT OF CARE GLUCOSEon 02-12 Glucose [Mass/Vol] 238 mg/dL Critically high 74-106 [facility] Comment on above: Performed By: #### C MP, HSTROPN, BNP #### [facility] [address] [address] [address] Spring Nash Glucose [Mass/Vol] 215 mg/dL Critically high 74-106 [facility] Comment on above: Performed By: #### C SHAUN VERDE, BNP #### [facility] [address] [place] [address] Dr. Spring Nash Glucose [Mass/Vol] 181 mg/dL Critically high 74-106 [facility] Comment on above: Performed By: #### C SHAUN VERDE, BNP #### [facility] [address] [place] [address] Dr. Spring Nash PROF 14(COMP METB)on 023 Albumin [Mass/Vol] 2.4 g/dL Critically low 3.4-5.0 [facility] Comment on above: Performed By: #### C MP #### [facility] [address] [place] [address] Dr. Spring Nash Albumin/Globulin [Mass ratio] 0.7 {ratio} Normal [facility] Comment on above: Performed By: #### C MP #### [facility] [address] [place] [address] Dr. Spring Nash ALP [Catalytic activity/Vol] 102 U/L Normal 46-116 [facility] Comment on above: Performed By: #### C MP #### [facility] [address] [place] [address] Dr. Spring Nash ALT [Catalytic activity/Vol] 18 U/L Normal 16-63 [facility] Comment on above: Performed By: #### C MP #### [facility] [address] [place] [address] Dr. Spring Nash Anion gap [Moles/Vol] 13.1 mmol/L Normal [facility] Comment on above: Performed By: #### C MP #### [facility] [address] [place] [address] Dr. Spring Nash AST [Catalytic activity/Vol] 13 U/L Critically low 15-37 [facility] Comment on above: Performed By: #### C MP #### [facility] [address] [address] [address] Spring Nash Bilirubin [Mass/Vol] 0.3 mg/dL Normal 0.2-1.0 [facility] Comment on above: Performed By: #### C MP #### [facility] [address] [address] [address] Spring Nash Calcium [Mass/Vol] 8.1 mg/dL Critically low 8.5-10.1 [facility] Comment on above: Performed By: #### C MP #### [facility] [address] [address] [address] Spring Nash Chloride [Moles/Vol] 108 mmol/L Critically high 98-107 [facility] Comment on above: Performed By: #### C MP #### [facility] [address] [place] [address] Dr. Spring Nash CO2 [Moles/Vol] 24.8 mmol/L Normal 21.0-32.0 [facility] Comment on above: Performed By: #### C MP #### [facility] [address] [place] [address] Dr. Spring Nash Creatinine [Mass/Vol] 3.39 mg/dL Critically high 0.70-1.30 [facility] Comment on above: Performed By: #### C MP #### [facility] [address] [place] [address] Dr. Spring Nash EGFR-AF COSTA RICAN 23 mL/min/1.73m2 Critically low >=60 [facility] Comment on above: Performed By: #### C MP #### [facility] [address] [place] [address] Dr. Spring Nash EGFR-NON AF COSTA RICAN 19 mL/min/1.73m2 Critically low >=60 [facility] Comment on above: Performed By: #### C MP #### [facility] [address] [place] [address] Dr. Spring Nash Globulin (S) [Mass/Vol] 3.4 g/dL Normal [facility] Comment on above: Performed By: #### C MP #### [facility] [address] [address] [address] Spring Nash Glucose [Mass/Vol] 101 mg/dL Normal 74-106 [facility] Comment on above: Performed By: #### C MP #### [facility] [address] [address] [address] Spring Nash Potassium [Moles/Vol] 4.9 mmol/L Normal 3.5-5.1 [facility] Comment on above: Performed By: #### C MP #### [facility] [address] [address] [address] Spring Nash Protein [Mass/Vol] 5.8 g/dL Critically low 6.4-8.2 [facility] Comment on above: Performed By: #### C MP #### [facility] [address] [address] [address] Spring Nash Sodium [Moles/Vol] 141 mmol/L Normal 136-145 [facility] Comment on above: Performed By: #### C MP #### [facility] [address] [address] [address] Spring Nash Urea nitrogen [Mass/Vol] 53.0 mg/dL Critically high 7.0-18.0 [facility] Comment on above: Performed By: #### C MP #### [facility] [address] [place] [address] Dr. Spring Nash Urea nitrogen/Creatinine [Mass ratio] 15.6 mg/mg Normal [facility] Comment on above: Performed By: #### C MP #### [facility] [address] [address] [address] Spring Nash BNPon 03-06-2023 Natriuretic peptide B (Bld) [Mass/Vol] 5021.0 pg/mL Critically high <=900.0 [facility] Comment on above: Performed By: #### B MP #### [facility] [address] [place] [address] Dr. Spring Nash CALCIUM URINEon 03-06-2023 UR CALCIUM <5.0 Critically low 5.1-21.0 [facility] Comment on above: Performed By: #### P OCGLUC #### [facility] [address] [address] [address] Spring Nash CBC AUTO DIFFon 03-06-2023 BASO # 0.0 103/ul Normal 0.0-0.1 [facility] Comment on above: Performed By: #### P OCGLUC #### [facility] [address] [address] [address] Spring Nash Basophils/100 WBC (Bld) 0.3 % Normal 0.2-2.0 [facility] Comment on above: Performed By: #### P OCGLUC #### [facility] [address] [address] [address] Spring Nash EO # 0.4 103/ul Normal 0.0-0.7 [facility] Comment on above: Performed By: #### P OCGLUC #### [facility] [address] [place] [address] Dr. Spring Nash Eosinophils/100 WBC (Bld) 5.6 % Normal 0.9-7.0 [facility] Comment on above: Performed By: #### P OCGLUC #### [facility] [address] [address] [address] Spring Nash Erythrocyte distribution width (RBC) [Ratio] 15.6 % Critically high 11.0-15.0 [facility] Comment on above: Performed By: #### P OCGLUC #### [facility] [address] [address] [address] Spring Nash Hematocrit (Bld) [Volume fraction] 30.7 % Critically low 42.0-54.0 [facility] Comment on above: Performed By: #### P OCGLUC #### [facility] [address] [address] [address] Spring Nash Hemoglobin (Bld) [Mass/Vol] 9.4 g/dL Critically low 14.0-18.0 [facility] Comment on above: Performed By: #### P OCGLUC #### [facility] [address] [address] [address] Spring Nash IG # 0.04 10e3/ul Critically high 0.00-0.03 [facility] Comment on above: Performed By: #### P OCGLUC #### [facility] [address] [address] [address] Spring Nash IG % 0.6 % Critically high 0.0-0.5 [facility] Comment on above: Performed By: #### P OCGLUC #### [facility] [address] [address] [address] Spring Nash LYMPH # 0.7 103/ul Critically low 1.2-3.8 [facility] Comment on above: Performed By: #### P OCGLUC #### [facility] [address] [address] [address] Spring Nash Lymphocytes/100 WBC (Bld) 10.7 % Critically low 20.5-60.0 [facility] Comment on above: Performed By: #### P OCGLUC #### [facility] [address] [address] [address] Spring Nash MANUAL DIFF REQ NO Normal [facility] Comment on above: Performed By: #### P OCGLUC #### [facility] [address] [address] [address] Spring Nash MCH (RBC) [Entitic mass] 29.5 pg Normal 25.9-34.0 [facility] Comment on above: Performed By: #### P OCGLUC #### [facility] [address] [address] [address] Spring Nash MCHC (RBC) [Mass/Vol] 30.6 g/dL Normal 29.9-35.2 [facility] Comment on above: Performed By: #### P OCGLUC #### [facility] [address] [address] [address] Spring Nash MCV (RBC) [Entitic vol] 96.2 fL Critically high 80.0-94 .0 [facility] Comment on above: Performed By: #### P OCGLUC #### [facility] [address] [address] [address] Spring Nash MONO # 0.6 103/ul Normal 0.3-0.8 [facility] Comment on above: Performed By: #### P OCGLUC #### [facility] [address] [address] [address] Spring Nash Monocytes/100 WBC (Bld) 8.2 % Normal 1.7-12.0 [facility] Comment on above: Performed By: #### P OCGLUC #### [facility] [address] [address] [address] Spring Nash NEUT # 5.1 103/ul Normal 1.4-6.5 [facility] Comment on above: Performed By: #### P OCGLUC #### [facility] [address] [place] [address] Dr. Spring Nash Neutrophils/100 WBC (Bld) 74.6 % Normal 43.0-75.0 [facility] Comment on above: Performed By: #### P OCGLUC #### [facility] [address] [place] [address] Dr. Spring Nash Platelet mean volume (Bld) [Entitic vol] 11.6 fL Normal 9.5-13.5 [facility] Comment on above: Performed By: #### P OCGLUC #### [facility] [address] [place] [address] Dr. Spring Nash PLT 176 103/ul Normal 150-450 [facility] Comment on above: Performed By: #### P OCGLUC #### [facility] [address] [place] [address] Dr. Spring Nash RBC 3.19 106/ul Critically low 4.70-6.10 [facility] Comment on above: Performed By: #### P OCGLUC #### [facility] [address] [place] [address] Dr. Spring Nash WBC 6.8 103/ul Normal 4.0-11.0 [facility] Comment on above: Performed By: #### P OCGLUC #### [facility] [address] [place] [address] Dr. Spring Nash CREATININE URINEon 3 URINE CREAT 20.22 mg/dL Normal 20.00-300. 00 [facility] Comment on above: Performed By: #### C MP, HSTROPN, BNP #### [facility] [address] [address] [address] Spring Nash ECHO LIMITED STUDYon 03-06- 023 ECHO LIMITED STUDY Patient: MELVI MINOR Exam Date: 03/06/2023 : 1970 Gender:M Ordering : TONY BARKSDALE Admission #: [id number] Family : SHAIKH Lana MORSE . Order #: [id number] CLICK HERE TO VIEW EXAM ECHOCARDIOGRAM REPORT PROCEDURE: CARDIO PULMONARY ECHO LIMITED STUDY INDICATIONS: CHF, HTN COMPARISON: None. DESCRIPTION: Limited ECHOCARDIOGRAM Real-time transthoracic echocardiography with 2D and M-mode performed. QUALITY: Technical quality was good. LEFT VENTRICLE: Normal chamber size. Moderate to severe concentric hypertrophy. Global left ventricular systolic function is hyperdynamic. LV EF: Estimated left ventricular ejection fraction is 75%. DIASTOLIC: ATRIAL SEPTUM: LEFT ATRIUM: Moderate dilatation. RIGHT ATRIUM: Mild dilatation. RIGHT VENTRICLE: Normal chamber size. Normal systolic function. TRICUSPID VALVE: Normal mobility and thickness. MITRAL VALVE: Normal mobility and thickness. AORTIC VALVE: Normal leaflet mobility. AORTIC ROOT: Normal diameter and appearance. PULMONIC VALVE: Not well visualized. PERICARDIUM: No evidence of pericardial effusion. IVC: Moderate dilatation. Measuring 2.5 cm with no collapse. PLEURA: CONCLUSION: 1. Moderate to severe concentric left ventricular hypertrophy with hyperdynamic systolic function. LVEF is 75%. 2. Normal right ventricular size and systolic function. 3. Mild to moderate biatrial dilatation. 4. The aortic valve opens well. 5. 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 6. Limited study performed with no Doppler interrogation as requested. 7. Cannot rule out infiltrative/hypertrophi c cardiomyopathy. Further cardiac imaging is recommended. Adult Echocardiography Procedure Report Left Ventricle LVEDD (3.7 - 5.6 cm): 5.06 cm LVESD (2.2 - 4.0 cm): 3.54 cm LVIVS thickness (0.6 - 1.2 cm): 1.91 cm LVPW thickness (0.5 - 1.0 cm): 1.38 cm Left Ventricular Ejection Fraction: 57.10 % Left Atrium LA Volume Index (2D A2C): 339992 mm3 Left Atrium Systolic Dimension: 4.20 cm Mitral Valve Right Ventricle Aorta AO Root Diam: 3.10 cm Aortic Valve Tricuspid Valve Pulmonic Valve Right Atrium Dictated by: Jason Lord M.D. on 03/06/2023 at 16:49 Approved by: Jason Lord M.D. on 03/06/2023 at 16:54 Normal [facility] POINT OF CARE GLUCOSEon 02-12 Glucose [Mass/Vol] 372 mg/dL Critically high [address] [place] [address] Comment on above: Performed By: #### P OCGLUC #### [facility] [address] [address] [address] Spring Nash Glucose [Mass/Vol] 183 mg/dL Critically high [address] [place] [address] Comment on above: Performed By: #### P OCGLUC #### [facility] [address] [address] [address] Spring Nash Glucose [Mass/Vol] 118 mg/dL Critically high [address] [place] [address] Comment on above: Performed By: #### P OCGLUC #### [facility] [address] [address] [address] Spring Nash Glucose [Mass/Vol] 145 mg/dL Critically high [address] [place] [address] Comment on above: Performed By: #### P OCGLUC #### [facility] [address] [address] [address] Spring Nash POTASSIUM URINEon 03-06-2023 UR POTASSIUM 17.2 mmol/L Normal [facility] Comment on above: Performed By: #### C MP, HSTROPN, BNP #### [facility] [address] [address] [address] Spring Nash PROF 14(COMP METB)on 023 Albumin [Mass/Vol] 2.3 g/dL Critically low 3.4-5.0 [facility] Comment on above: Performed By: #### B MP #### [facility] [address] [address] [address] Spring Nash Albumin/Globulin [Mass ratio] 0.7 {ratio} Normal [facility] Comment on above: Performed By: #### B MP #### [facility] [address] [address] [address] Spring Nash ALP [Catalytic activity/Vol] 121 U/L Critically high 46-116 [facility] Comment on above: Performed By: #### B MP #### [facility] [address] [address] [address] Spring Nash ALT [Catalytic activity/Vol] 14 U/L Critically low 16-63 [facility] Comment on above: Performed By: #### B MP #### [facility] [address] [address] [address] Spring Nash Anion gap [Moles/Vol] 14.2 mmol/L Normal [facility] Comment on above: Performed By: #### B MP #### [facility] [address] [address] [address] Spring Nash AST [Catalytic activity/Vol] 13 U/L Critically low 15-37 [facility] Comment on above: Performed By: #### B MP #### [facility] [address] [address] [address] Spring Nash Bilirubin [Mass/Vol] 0.3 mg/dL Normal 0.2-1.0 [facility] Comment on above: Performed By: #### B MP #### [facility] [address] [address] [address] Spring Nash Calcium [Mass/Vol] 8.0 mg/dL Critically low 8.5-10.1 [facility] Comment on above: Performed By: #### B MP #### [facility] [address] [address] [address] Spring Nash CO2 [Moles/Vol] 22.5 mmol/L Normal 21.0-32.0 [facility] Comment on above: Performed By: #### B MP #### [facility] [address] [address] [address] Spring Nash Creatinine [Mass/Vol] 3.48 mg/dL Critically high 0.70-1.30 [facility] Comment on above: Performed By: #### B MP #### [facility] [address] [address] [address] Spring Nash EGFR-AF CO[place] RICAN 23 mL/min/1.73m2 Critically low >=60 [facility] Comment on above: Performed By: #### B MP #### [facility] [address] [address] [address] Spring Nash EGFR-NON AF [place] 19 mL/min/1.73m2 Critically low >=60 [facility] Comment on above: Performed By: #### B MP #### [facility] [address] [address] [address] Spring Nash Globulin (S) [Mass/Vol] 3.1 g/dL Normal [facility] Comment on above: Performed By: #### B MP #### [facility] [address] [address] [address] Spring Nash Glucose [Mass/Vol] 170 mg/dL Critically high 74-106 [facility] Comment on above: Performed By: #### B MP #### [facility] [address] [address] [address] Spring Nash Potassium [Moles/Vol] 4.7 mmol/L Normal 3.5-5.1 [facility] Comment on above: Performed By: #### B MP #### [facility] [address] [address] [address] Spring Nash Protein [Mass/Vol] 5.4 g/dL Critically low 6.4-8.2 [facility] Comment on above: Performed By: #### B MP #### [facility] [address] [address] [address] Spring Nash Urea nitrogen [Mass/Vol] 50.0 mg/dL Critically high 7.0-18.0 [facility] Comment on above: Performed By: #### B MP #### [facility] [address] [address] [address] Spring Nash Urea nitrogen/Creatinine [Mass ratio] 14.4 mg/mg Normal [facility] Comment on above: Performed By: #### B MP #### [facility] [address] [address] [address] Spring Nash PROF CHEM 8 (BAS METB)on Anion gap [Moles/Vol] 13.5 mmol/L Normal [facility] Comment on above: Performed By: #### B MP #### [facility] [address] [address] [address] Spring Nash Calcium [Mass/Vol] 7.8 mg/dL Critically low 8.5-10.1 [facility] Comment on above: Performed By: #### B MP #### [facility] [address] [address] [address] Spring Nash Chloride [Moles/Vol] 107 mmol/L Normal 98-107 [facility] Comment on above: Performed By: #### B MP #### [facility] [address] [place] [address] Dr. Spring Nash CO2 [Moles/Vol] 23.6 mmol/L Normal 21.0-32.0 [facility] Comment on above: Performed By: #### B MP #### [facility] [address] [place] [address] Dr. Spring Nash Creatinine [Mass/Vol] 3.60 mg/dL Critically high 0.70-1.30 [facility] Comment on above: Performed By: #### B MP #### [facility] [address] [place] [address] Dr. Spring Nash EGFR-AF [place] R[place] 22 mL/min/1.73m2 Critically low >=60 [facility] Comment on above: Performed By: #### B MP #### [facility] [address] [address] [address] Spring Nash EGFR-NON AF [place] 18 mL/min/1.73m2 Critically low >=60 [facility] Comment on above: Performed By: #### B MP #### [facility] [address] [place] [address] Dr. Spring Nash Glucose [Mass/Vol] 175 mg/dL Critically high 74-106 [facility] Comment on above: Performed By: #### B MP #### [facility] [address] [address] [address] Spring Nash Potassium [Moles/Vol] 5.1 mmol/L Normal 3.5-5.1 [facility] Comment on above: Performed By: #### B MP #### [facility] [address] [address] [address] Spring Nash Sodium [Moles/Vol] 139 mmol/L Normal 136-145 [facility] Comment on above: Performed By: #### B MP #### [facility] [address] [address] [address] Spring Nash Urea nitrogen [Mass/Vol] 48.0 mg/dL Critically high 7.0-18.0 [facility] Comment on above: Performed By: #### B MP #### [facility] [address] [address] [address] Spring Nash Urea nitrogen/Creatinine [Mass ratio] 13.3 mg/mg Normal [facility] Comment on above: Performed By: #### B MP #### [facility] [address] [address] [address] Spring Nash SODIUM RANDOM URINEon 2022 Sodium (U) [Moles/Vol] 106 mmol/L Critically high 30-90 [facility] Comment on above: Performed By: #### C MP, HSTROPN, BNP #### [facility] [address] [address] [address] Spring Nash VANCOMYCIN TROUGHon 03-06-20 VANCOMYCIN TROUGH 8.1 ug/ml Normal 5.0-20.0 [facility] Comment on above: Performed By: #### C MP #### [facility] [address] [place] [address] Dr. Spring Nash XR CHEST 2 Von 03-06-2023 XR CHEST 2 V EXAMINATION: XR CHES T 2 V, 03/06/2023 11:03 AM EDT HISTORY: COUGH COMPARISON: 03/05/2023 TECHNIQUE: Chest x-ray: Two views. FINDINGS: Bilateral perihilar interstitial prominence which may represent pulmonary vascular congestion. Small bilateral pleural effusions with blunting of the costophrenic angles bilaterally. Cardiomegaly. Visualized osseous structures are unremarkable. IMPRESSION: Mild vascular congestion. Small bilateral pleural effusions. This has improved when compared to the prior study. Cardiomegaly. Electronically authenticated by: SAMANTHA MURPHY Date: 2023-03-06 12:19 Normal [facility] BNPon 03-05-2023 Natriuretic peptide B (Bld) [Mass/Vol] 5356.0 pg/mL Critically high <=900.0 [facility] Comment on above: Performed By: #### P OCGLUC #### [facility] [address] [place] [address] Dr. Spring Nash CBC AUTO DIFFon 03-05-2023 BASO # 0.0 103/ul Normal 0.0-0.1 [facility] Comment on above: Performed By: #### P OCGLUC #### [facility] [address] [place] [address] Dr. Spring Nash Basophils/100 WBC (Bld) 0.3 % Normal 0.2-2.0 [facility] Comment on above: Performed By: #### P OCGLUC #### [facility] [address] [place] [address] Dr. Spring Nash EO # 0.4 103/ul Normal 0.0-0.7 [facility] Comment on above: Performed By: #### P OCGLUC #### [facility] [address] [place] [address] Dr. Spring Nash Eosinophils/100 WBC (Bld) 5.7 % Normal 0.9-7.0 [facility] Comment on above: Performed By: #### P OCGLUC #### [facility] [address] [place] [address] Dr. Spring Nash Erythrocyte distribution width (RBC) [Ratio] 15.6 % Critically high 11.0-15.0 [facility] Comment on above: Performed By: #### P OCGLUC #### [facility] [address] [place] [address] Dr. Spring Nash Hematocrit (Bld) [Volume fraction] 28.9 % Critically low 42.0-54.0 [facility] Comment on above: Performed By: #### P OCGLUC #### [facility] [address] [address] [address] Spring Nash Hemoglobin (Bld) [Mass/Vol] 9.4 g/dL Critically low 14.0-18.0 [facility] Comment on above: Performed By: #### P OCGLUC #### [facility] [address] [address] [address] Spring Nash IG # 0.03 10e3/ul Normal 0.00-0.03 [facility] Comment on above: Performed By: #### P OCGLUC #### [facility] [address] [place] [address] Dr. Spring Nash IG % 0.4 % Normal 0.0-0.5 [facility] Comment on above: Performed By: #### P OCGLUC #### [facility] [address] [address] [address] Spring Nash LYMPH # 0.9 103/ul Critically low 1.2-3.8 [facility] Comment on above: Performed By: #### P OCGLUC #### [facility] [address] [place] [address] Dr. Spring Nash Lymphocytes/100 WBC (Bld) 11.5 % Critically low 20.5-60.0 [facility] Comment on above: Performed By: #### P OCGLUC #### [facility] [address] [place] [address] Dr. Spring Nash MANUAL DIFF REQ NO Normal [facility] Comment on above: Performed By: #### P OCGLUC #### [facility] [address] [place] [address] Dr. Spring Nash MCH (RBC) [Entitic mass] 29.8 pg Normal 25.9-34.0 [facility] Comment on above: Performed By: #### P OCGLUC #### [facility] [address] [place] [address] Dr. Spring Nash MCHC (RBC) [Mass/Vol] 32.5 g/dL Normal 29.9-35.2 [facility] Comment on above: Performed By: #### P OCGLUC #### [facility] [address] [place] [address] Dr. Spring Nash MCV (RBC) [Entitic vol] 91.7 fL Normal 80.0-94.0 [facility] Comment on above: Performed By: #### P OCGLUC #### [facility] [address] [place] [address] Dr. Spring Nash MONO # 0.7 103/ul Normal 0.3-0.8 [facility] Comment on above: Performed By: #### P OCGLUC #### [facility] [address] [place] [address] Dr. Spring Nash Monocytes/100 WBC (Bld) 8.9 % Normal 1.7-12.0 [facility] Comment on above: Performed By: #### P OCGLUC #### [facility] [address] [place] [address] Dr. Spring Nash NEUT # 5.6 103/ul Normal 1.4-6.5 [facility] Comment on above: Performed By: #### P OCGLUC #### [facility] [address] [place] [address] Dr. Spring Nash Neutrophils/100 WBC (Bld) 73.2 % Normal 43.0-75.0 [facility] Comment on above: Performed By: #### P OCGLUC #### [facility] [address] [place] [address] Dr. Spring Nash Platelet mean volume (Bld) [Entitic vol] 11.8 fL Normal 9.5-13.5 [facility] Comment on above: Performed By: #### P OCGLUC #### [facility] [address] [place] [address] Dr. Spring Nash PLT 176 103/ul Normal 150-450 [facility] Comment on above: Performed By: #### P OCGLUC #### [facility] [address] [place] [address] Dr. Spring Nash RBC 3.15 106/ul Critically low 4.70-6.10 [facility] Comment on above: Performed By: #### P OCGLUC #### [facility] [address] [place] [address] Dr. Spring Nash WBC 7.6 103/ul Normal 4.0-11.0 [facility] Comment on above: Performed By: #### P OCGLUC #### [facility] [address] [place] [address] Dr. Spring Nash POINT OF CARE GLUCOSEon 02-12 Glucose [Mass/Vol] 272 mg/dL Critically high 74-106 [facility] Comment on above: Performed By: #### C MP, HSTROPN, BNP #### [facility] [address] [place] [address] Dr. Spring Nash Glucose [Mass/Vol] 179 mg/dL Critically high 74-106 [facility] Comment on above: Performed By: #### P OCGLUC #### [facility] [address] [place] [address] Dr. Spring Nash Glucose [Mass/Vol] 136 mg/dL Critically high -106 [facility] Comment on above: Performed By: #### P OCGLUC #### [facility] [address] [place] [address] Dr. Spring Nash PROF 14(COMP METB)on 023 Albumin [Mass/Vol] 2.3 g/dL Critically low 3.4-5.0 [facility] Comment on above: Performed By: #### P OCGLUC #### [facility] [address] [place] [address] Dr. Spring Nash Albumin/Globulin [Mass ratio] 0.8 {ratio} Normal [facility] Comment on above: Performed By: #### P OCGLUC #### [facility] [address] [place] [address] Dr. Spring Nash ALP [Catalytic activity/Vol] 116 U/L Normal 46-116 [facility] Comment on above: Performed By: #### P OCGLUC #### [facility] [address] [address] [address] Spring Nash ALT [Catalytic activity/Vol] 15 U/L Critically low 16-63 [facility] Comment on above: Performed By: #### P OCGLUC #### [facility] [address] [address] [address] Spring Nsah Anion gap [Moles/Vol] 14.0 mmol/L Normal [facility] Comment on above: Performed By: #### P OCGLUC #### [facility] [address] [address] [address] Spring Nash AST [Catalytic activity/Vol] 15 U/L Normal 15-37 [facility] Comment on above: Performed By: #### P OCGLUC #### [facility] [address] [address] [address] Spring Nash Bilirubin [Mass/Vol] 0.2 mg/dL Normal 0.2-1.0 [facility] Comment on above: Performed By: #### P OCGLUC #### [facility] [address] [address] [address] Spring Nash Calcium [Mass/Vol] 8.0 mg/dL Critically low 8.5-10.1 [facility] Comment on above: Performed By: #### P OCGLUC #### [facility] [address] [place] [address] Dr. Spring Nash Chloride [Moles/Vol] 108 mmol/L Critically high 98-107 [facility] Comment on above: Performed By: #### P OCGLUC #### [facility] [address] [address] [address] Spring Nash CO2 [Moles/Vol] 22.2 mmol/L Normal 21.0-32.0 [facility] Comment on above: Performed By: #### P OCGLUC #### [facility] [address] [address] [address] Spring Nash Creatinine [Mass/Vol] 3.06 mg/dL Critically high 0.70-1.30 [facility] Comment on above: Performed By: #### P OCGLUC #### [facility] [address] [address] [address] Spring Nash EGFR-AF [place] 26 mL/min/1.73m2 Critically low >=60 [facility] Comment on above: Performed By: #### P OCGLUC #### [facility] [address] [address] [address] Spring Nash EGFR-NON AF [place] 22 mL/min/1.73m2 Critically low >=60 [facility] Comment on above: Performed By: #### P OCGLUC #### [facility] [address] [address] [address] Spring Nash Globulin (S) [Mass/Vol] 3.0 g/dL Normal [facility] Comment on above: Performed By: #### P OCGLUC #### [facility] [address] [address] [address] Spring Nash Glucose [Mass/Vol] 142 mg/dL Critically high 74-106 [facility] Comment on above: Performed By: #### P OCGLUC #### [facility] [address] [address] [address] Spring Nash Potassium [Moles/Vol] 4.2 mmol/L Normal 3.5-5.1 [facility] Comment on above: Performed By: #### P OCGLUC #### [facility] [address] [address] [address] Spring Nash Protein [Mass/Vol] 5.3 g/dL Critically low 6.4-8.2 [facility] Comment on above: Performed By: #### P OCGLUC #### [facility] [address] [address] [address] Spring Nash Sodium [Moles/Vol] 140 mmol/L Normal 136-145 [facility] Comment on above: Performed By: #### P OCGLUC #### [facility] [address] [address] [address] Spring Nash Urea nitrogen [Mass/Vol] 40.0 mg/dL Critically high 7.0-18.0 [facility] Comment on above: Performed By: #### P OCGLUC #### [facility] [address] [place] [address] Dr. Spring Nash Urea nitrogen/Creatinine [Mass ratio] 13.1 mg/mg Normal [facility] Comment on above: Performed By: #### P OCGLUC #### [facility] [address] [place] [address] Dr. Spring Nash BNPon 03-04-2023 Natriuretic peptide B (Bld) [Mass/Vol] 8915.0 pg/mL Critically high <=900.0 [facility] Comment on above: Performed By: #### P OCGLUC #### [facility] [address] [place] [address] Dr. Spring Nash CBC AUTO DIFFon 03-04-2023 BASO # 0.0 103/ul Normal 0.0-0.1 [facility] Comment on above: Performed By: #### C MP #### [facility] [address] [place] [address] Dr. Spring Nash Basophils/100 WBC (Bld) 0.2 % Normal 0.2-2.0 [facility] Comment on above: Performed By: #### C MP #### [facility] [address] [place] [address] Dr. Spring Nash EO # 0.4 103/ul Normal 0.0-0.7 [facility] Comment on above: Performed By: #### C MP #### [facility] [address] [place] [address] Dr. Spring Nash Eosinophils/100 WBC (Bld) 5.1 % Normal 0.9-7.0 [facility] Comment on above: Performed By: #### C MP #### [facility] [address] [place] [address] Dr. Spring Nash Erythrocyte distribution width (RBC) [Ratio] 15.7 % Critically high 11.0-15.0 [facility] Comment on above: Performed By: #### C MP #### [facility] [address] [place] [address] Dr. Spring Nash Hematocrit (Bld) [Volume fraction] 29.5 % Critically low 42.0-54.0 [facility] Comment on above: Performed By: #### C MP #### [facility] [address] [address] [address] Spring Nash Hemoglobin (Bld) [Mass/Vol] 9.2 g/dL Critically low 14.0-18.0 [facility] Comment on above: Performed By: #### C MP #### [facility] [address] [address] [address] Spring Nash IG # 0.03 10e3/ul Normal 0.00-0.03 [facility] Comment on above: Performed By: #### C MP #### [facility] [address] [address] [address] Spring Nash IG % 0.4 % Normal 0.0-0.5 [facility] Comment on above: Performed By: #### C MP #### [facility] [address] [place] [address] Dr. Spring Nash LYMPH # 0.9 103/ul Critically low 1.2-3.8 [facility] Comment on above: Performed By: #### C MP #### [facility] [address] [place] [address] Dr. Spring Nash Lymphocytes/100 WBC (Bld) 11.3 % Critically low 20.5-60.0 [facility] Comment on above: Performed By: #### C MP #### [facility] [address] [address] [address] Spring Nash MANUAL DIFF REQ NO Normal [facility] Comment on above: Performed By: #### C MP #### [facility] [address] [address] [address] Spring Nash MCH (RBC) [Entitic mass] 29.6 pg Normal 25.9-34.0 [facility] Comment on above: Performed By: #### C MP #### [facility] [address] [address] [address] Spring Nash MCHC (RBC) [Mass/Vol] 31.2 g/dL Normal 29.9-35.2 [facility] Comment on above: Performed By: #### C MP #### [facility] [address] [address] [address] Spring Nash MCV (RBC) [Entitic vol] 94.9 fL Critically high 80.0-94 .0 [facility] Comment on above: Performed By: #### C MP #### [facility] [address] [address] [address] Spring Nash MONO # 0.6 103/ul Normal 0.3-0.8 [facility] Comment on above: Performed By: #### C MP #### [facility] [address] [address] [address] Spring Nash Monocytes/100 WBC (Bld) 7.7 % Normal 1.7-12.0 [facility] Comment on above: Performed By: #### C MP #### [facility] [address] [place] [address] Dr. Spring Nash NEUT # 6.2 103/ul Normal 1.4-6.5 [facility] Comment on above: Performed By: #### C MP #### [facility] [address] [address] [address] Spring Nash Neutrophils/100 WBC (Bld) 75.3 % Critically high 43.0-75.0 [facility] Comment on above: Performed By: #### C MP #### [facility] [address] [address] [address] Spring Nash Platelet mean volume (Bld) [Entitic vol] 11.8 fL Normal 9.5-13.5 [facility] Comment on above: Performed By: #### C MP #### [facility] [address] [address] [address] Spring Nash PLT 183 103/ul Normal 150-450 [facility] Comment on above: Performed By: #### C MP #### [facility] [address] [address] [address] Spring Nash RBC 3.11 106/ul Critically low 4.70-6.10 [facility] Comment on above: Performed By: #### C MP #### [facility] [address] [address] [address] Spring Nash WBC 8.2 103/ul Normal 4.0-11.0 [facility] Comment on above: Performed By: #### C MP #### [facility] [address] [address] [address] Spring Nash POINT OF CARE GLUCOSEon 02-12 Glucose [Mass/Vol] 218 mg/dL Critically high 74-106 [facility] Comment on above: Performed By: #### P OCGLUC #### [facility] [address] [address] [address] Spring Nash Glucose [Mass/Vol] 193 mg/dL Critically high -106 [facility] Comment on above: Performed By: #### P OCGLUC #### [facility] [address] [address] [address] Spring Nash Glucose [Mass/Vol] 146 mg/dL Critically high -106 [facility] Comment on above: Performed By: #### C MP #### [facility] [address] [address] [address] Spring Nash Glucose [Mass/Vol] 65 mg/dL Critically low 74-106 [facility] Comment on above: Performed By: #### P OCGLUC #### [facility] [address] [place] [address] Dr. Spring Nash PROF 14(COMP METB)on 023 Albumin [Mass/Vol] 2.2 g/dL Critically low 3.4-5.0 [facility] Comment on above: Performed By: #### P OCGLUC #### [facility] [address] [place] [address] Dr. Spring Nash Albumin/Globulin [Mass ratio] 0.8 {ratio} Normal [facility] Comment on above: Performed By: #### P OCGLUC #### [facility] [address] [address] [address] Spring Nash ALP [Catalytic activity/Vol] 100 U/L Normal 46-116 [facility] Comment on above: Performed By: #### P OCGLUC #### [facility] [address] [address] [address] Spring Nash ALT [Catalytic activity/Vol] 15 U/L Critically low 16-63 [facility] Comment on above: Performed By: #### P OCGLUC #### [facility] [address] [address] [address] Spring Nash Anion gap [Moles/Vol] 13.2 mmol/L Normal [facility] Comment on above: Performed By: #### P OCGLUC #### [facility] [address] [address] [address] Spring Nash AST [Catalytic activity/Vol] 14 U/L Critically low 15-37 [facility] Comment on above: Performed By: #### P OCGLUC #### [facility] [address] [address] [address] Spring Nash Bilirubin [Mass/Vol] 0.3 mg/dL Normal 0.2-1.0 [facility] Comment on above: Performed By: #### P OCGLUC #### [facility] [address] [address] [address] Spring Nash Calcium [Mass/Vol] 8.0 mg/dL Critically low 8.5-10.1 [facility] Comment on above: Performed By: #### P OCGLUC #### [facility] [address] [address] [address] Spring Nash Chloride [Moles/Vol] 109 mmol/L Critically high 98-107 [facility] Comment on above: Performed By: #### P OCGLUC #### [facility] [address] [address] [address] Spring Nash CO2 [Moles/Vol] 24.3 mmol/L Normal 21.0-32.0 [facility] Comment on above: Performed By: #### P OCGLUC #### [facility] [address] [address] [address] Spring Nash Creatinine [Mass/Vol] 2.38 mg/dL Critically high 0.70-1.30 [facility] Comment on above: Performed By: #### P OCGLUC #### [facility] [address] [address] [address] Spring Nash EGFR-AF [place] 35 mL/min/1.73m2 Critically low >=60 [facility] Comment on above: Performed By: #### P OCGLUC #### [facility] [address] [address] [address] Spring Nash EGFR-NON AF [place] 29 mL/min/1.73m2 Critically low >=60 [facility] Comment on above: Performed By: #### P OCGLUC #### [facility] [address] [address] [address] Spring Nash Globulin (S) [Mass/Vol] 2.9 g/dL Normal [facility] Comment on above: Performed By: #### P OCGLUC #### [facility] [address] [address] [address] Spring Nash Glucose [Mass/Vol] 107 mg/dL Critically high 74-106 [facility] Comment on above: Performed By: #### P OCGLUC #### [facility] [address] [address] [address] Spring Nash Potassium [Moles/Vol] 3.5 mmol/L Normal 3.5-5.1 [facility] Comment on above: Performed By: #### P OCGLUC #### [facility] [address] [address] [address] Spring Nash Protein [Mass/Vol] 5.1 g/dL Critically low 6.4-8.2 [facility] Comment on above: Performed By: #### P OCGLUC #### [facility] [address] [address] [address] Spring Nash Sodium [Moles/Vol] 143 mmol/L Normal 136-145 [facility] Comment on above: Performed By: #### P OCGLUC #### [facility] [address] [address] [address] Spring Nash Urea nitrogen [Mass/Vol] 34.0 mg/dL Critically high 7.0-18.0 [facility] Comment on above: Performed By: #### P OCGLUC #### [facility] [address] [address] [address] Spring Nash Urea nitrogen/Creatinine [Mass ratio] 14.3 mg/mg Normal [facility] Comment on above: Performed By: #### P OCGLUC #### [facility] [address] [address] [address] Spring Nash US KELVIN DOP LEG LTon 03-04-20 23 US KELVIN DOP LEG LT EXAMINATION: US KELVIN DOP LEG LT HISTORY: Peripheral edema COMPARISON: Ultrasound venous Doppler leg bilateral 11/07/2020 FINDINGS: REGION: Left lower extremity THROMBI: None. COMPRESSIBILITY: Normal compressibility. FLOW: Normal waveform and antegrade flow between 5 and 20 cm/s. OTHER: Subcutaneous edema. IMPRESSION: 1. No deep vein thrombus within the left lower extremity. Electronically authenticated by: MURRAY YEBOAH Date: 2023-03-04 11:26 Normal [facility] BLOOD GASES BTYon 03-03-2023 02 MODE ROOM AIR Normal [facility] Comment on above: Performed By: #### C MP, HSTROPN, BNP #### [facility] [address] [address] [address] Spring Nash ALLENS TEST Positive Normal [facility] Comment on above: Performed By: #### C MP, HSTROPN, BNP #### [facility] [address] [address] [address] Spring Nash Base excess Calc (Bld) [Moles/Vol] -2.2000 mmol/L Critically low -2.0-2.0 [facility] Comment on above: Performed By: #### C MP, HSTROPN, BNP #### [facility] [address] [address] [address] Spring Nash BIPAP PRESSURE Normal [facility] Comment on above: Performed By: #### C MP, HSTROPN, BNP #### [facility] [address] [address] [address] Spring Nash CPAP Normal [facility] Comment on above: Performed By: #### C MP, HSTROPN, BNP #### [facility] [address] [place] [address] Dr. Spring Nash FIO2 [facility] Comment on above: Performed By: #### C MP, HSTROPN, BNP #### [facility] [address] [address] [address] Spring Nash HCO3 (Bld) [Moles/Vol] 22.8 mmol/L Normal 22.0-26.0 [facility] Comment on above: Performed By: #### C MP, HSTROPN, BNP #### [facility] [address] [place] [address] Dr. Spring Nash [facility] Comment on above: Performed By: #### C MP, HSTROPN, BNP #### [facility] [address] [place] [address] Dr. Spring Nash MINUTE VOLUME Normal [facility] Comment on above: Performed By: #### C MP, HSTROPN, BNP #### [facility] [address] [place] [address] Dr. Spring Nash Oxygen (Bld) [Partial pressure] 86.8 mm[Hg] Normal 80.0-100.0 [facility] Comment on above: Performed By: #### C MP, HSTROPN, BNP #### [facility] [address] [place] [address] Dr. Spring Nash Oxygen saturation in Blood 97.7 % Normal 95.0-100.0 [facility] Comment on above: Performed By: #### C MP, HSTROPN, BNP #### [facility] [address] [place] [address] Dr. Spring Nash PCO2 37.9 mmHg Normal 35.0-45.0 [facility] Comment on above: Performed By: #### C MP, HSTROPN, BNP #### [facility] [address] [place] [address] Dr. Spring Nash PEEP [facility] Comment on above: Performed By: #### C MP, HSTROPN, BNP #### [facility] [address] [place] [address] Dr. Spring Nash pH (Bld) 7.388 [pH] Normal 7.350-7.45 0 [facility] Comment on above: Performed By: #### C MP, HSTROPN, BNP #### [facility] [address] [place] [address] Dr. Spring Nash [facility] Comment on above: Performed By: #### C MP, HSTROPN, BNP #### [facility] [address] [place] [address] Dr. Spring Nash [facility] Comment on above: Performed By: #### C MP, HSTROPN, BNP #### [facility] [address] [place] [address] Dr. Spring Nash PUNCTURE SITE LR [facility] Comment on above: Performed By: #### C MP, HSTROPN, BNP #### [facility] [address] [place] [address] Dr. Spring Nash [facility] Comment on above: Performed By: #### C MP, HSTROPN, BNP #### [facility] [address] [place] [address] Dr. Spring Nash [facility] Comment on above: Performed By: #### C MP, HSTROPN, BNP #### [facility] [address] [place] [address] Dr. Spring Nash [facility] Comment on above: Performed By: #### C MP, HSTROPN, BNP #### [facility] [address] [place] [address] Dr. Spring Nash BNPon 03-03-2023 Natriuretic peptide B (Bld) [Mass/Vol] 83260.0 pg/mL Critically high <=900.0 [facility] Comment on above: Performed By: #### C MP, HSTROPN, BNP #### [facility] [address] [place] [address] Dr. Spring Nash CBC AUTO DIFFon 03-03-2023 BASO # 0.0 103/ul Normal 0.0-0.1 [facility] Comment on above: Performed By: #### C MP #### [facility] [address] [address] [address] Spring Nash Basophils/100 WBC (Bld) 0.2 % Normal 0.2-2.0 [facility] Comment on above: Performed By: #### C MP #### [facility] [address] [address] [address] Spring Nash EO # 0.4 103/ul Normal 0.0-0.7 [facility] Comment on above: Performed By: #### C MP #### [facility] [address] [place] [address] Dr. Spring Nash Eosinophils/100 WBC (Bld) 3.2 % Normal 0.9-7.0 [facility] Comment on above: Performed By: #### C MP #### [facility] [address] [place] [address] Dr. Spring Nash Erythrocyte distribution width (RBC) [Ratio] 15.1 % Critically high 11.0-15.0 [facility] Comment on above: Performed By: #### C MP #### [facility] [address] [place] [address] Dr. Spring Nash Hematocrit (Bld) [Volume fraction] 33.2 % Critically low 42.0-54.0 [facility] Comment on above: Performed By: #### C MP #### [facility] [address] [place] [address] Dr. Spring Nash Hemoglobin (Bld) [Mass/Vol] 10.3 g/dL Critically low 14.0-18.0 [facility] Comment on above: Performed By: #### C MP #### [facility] [address] [place] [address] Dr. Spring Nash IG # 0.08 10e3/ul Critically high 0.00-0.03 [facility] Comment on above: Performed By: #### C MP #### [facility] [address] [place] [address] Dr. Spring Nash IG % 0.7 % Critically high 0.0-0.5 [facility] Comment on above: Performed By: #### C MP #### [facility] [address] [address] [address] Spring Nash LYMPH # 0.9 103/ul Critically low 1.2-3.8 [facility] Comment on above: Performed By: #### C MP #### [facility] [address] [address] [address] Spring Nash Lymphocytes/100 WBC (Bld) 7.5 % Critically low 20.5-60.0 [facility] Comment on above: Performed By: #### C MP #### [facility] [address] [place] [address] Dr. Spring Nash MANUAL DIFF REQ NO Normal [facility] Comment on above: Performed By: #### C MP #### [facility] [address] [place] [address] Dr. Spring Nash MCH (RBC) [Entitic mass] 29.2 pg Normal 25.9-34.0 [facility] Comment on above: Performed By: #### C MP #### [facility] [address] [place] [address] Dr. Spring Nash MCHC (RBC) [Mass/Vol] 31.0 g/dL Normal 29.9-35.2 [facility] Comment on above: Performed By: #### C MP #### [facility] [address] [place] [address] Dr. Spring Nash MCV (RBC) [Entitic vol] 94.1 fL Critically high 80.0-94 .0 [facility] Comment on above: Performed By: #### C MP #### [facility] [address] [place] [address] Dr. Spring Nash MONO # 0.8 103/ul Normal 0.3-0.8 [facility] Comment on above: Performed By: #### C MP #### [facility] [address] [place] [address] Dr. Spring Nash Monocytes/100 WBC (Bld) 6.2 % Normal 1.7-12.0 [facility] Comment on above: Performed By: #### C MP #### [facility] [address] [address] [address] Spring Nash NEUT # 9.9 103/ul Critically high 1.4-6.5 [facility] Comment on above: Performed By: #### C MP #### [facility] [address] [address] [address] Spring Nash Neutrophils/100 WBC (Bld) 82.2 % Critically high 43.0-75.0 [facility] Comment on above: Performed By: #### C MP #### [facility] [address] [address] [address] Spring Nash Platelet mean volume (Bld) [Entitic vol] 11.8 fL Normal 9.5-13.5 [facility] Comment on above: Performed By: #### C MP #### [facility] [address] [address] [address] Spring Nash PLT 196 103/ul Normal 150-450 [facility] Comment on above: Performed By: #### C MP #### [facility] [address] [address] [address] Spring Nash RBC 3.53 106/ul Critically low 4.70-6.10 [facility] Comment on above: Performed By: #### C MP #### [facility] [address] [address] [address] Spring Nash WBC 12.0 103/ul Critically high 4.0-11.0 [facility] Comment on above: Performed By: #### C MP #### [facility] [address] [address] [address] Spring Nash BASO # 0.0 103/ul Normal 0.0-0.1 [facility] Comment on above: Performed By: #### C MP #### [facility] [address] [address] [address] Spring Nash Basophils/100 WBC (Bld) 0.3 % Normal 0.2-2.0 [facility] Comment on above: Performed By: #### C MP #### [facility] [address] [address] [address] Spring Nash EO # 0.5 103/ul Normal 0.0-0.7 [facility] Comment on above: Performed By: #### C MP #### [facility] [address] [address] [address] Spring Nash Eosinophils/100 WBC (Bld) 3.8 % Normal 0.9-7.0 [facility] Comment on above: Performed By: #### C MP #### [facility] [address] [address] [address] Spring Nash Erythrocyte distribution width (RBC) [Ratio] 14.9 % Normal 11.0-15.0 [facility] Comment on above: Performed By: #### C MP #### [facility] [address] [place] [address] Dr. Spring Nash Hematocrit (Bld) [Volume fraction] 33.1 % Critically low 42.0-54.0 [facility] Comment on above: Performed By: #### C MP #### [facility] [address] [place] [address] Dr. Spring Nash Hemoglobin (Bld) [Mass/Vol] 10.6 g/dL Critically low 14.0-18.0 [facility] Comment on above: Performed By: #### C MP #### [facility] [address] [address] [address] Spring Nash IG # 0.07 10e3/ul Critically high 0.00-0.03 [facility] Comment on above: Performed By: #### C MP #### [facility] [address] [place] [address] Dr. Spring Nash IG % 0.6 % Critically high 0.0-0.5 [facility] Comment on above: Performed By: #### C MP #### [facility] [address] [place] [address] Dr. Spring Nash LYMPH # 1.1 103/ul Critically low 1.2-3.8 [facility] Comment on above: Performed By: #### C MP #### [facility] [address] [place] [address] Dr. Spring Nash Lymphocytes/100 WBC (Bld) 9.2 % Critically low 20.5-60.0 [facility] Comment on above: Performed By: #### C MP #### [facility] [address] [place] [address] Dr. Spring Nash MANUAL DIFF REQ NO Normal [facility] Comment on above: Performed By: #### C MP #### [facility] [address] [place] [address] Dr. Spring Nash MCH (RBC) [Entitic mass] 29.7 pg Normal 25.9-34.0 [facility] Comment on above: Performed By: #### C MP #### [facility] [address] [place] [address] Dr. Spring Nash MCHC (RBC) [Mass/Vol] 32.0 g/dL Normal 29.9-35.2 [facility] Comment on above: Performed By: #### C MP #### [facility] [address] [place] [address] Dr. Spring Nash MCV (RBC) [Entitic vol] 92.7 fL Normal 80.0-94.0 [facility] Comment on above: Performed By: #### C MP #### [facility] [address] [place] [address] Dr. Spring Nash MONO # 0.7 103/ul Normal 0.3-0.8 [facility] Comment on above: Performed By: #### C MP #### [facility] [address] [place] [address] Dr. Spring Nash Monocytes/100 WBC (Bld) 6.1 % Normal 1.7-12.0 [facility] Comment on above: Performed By: #### C MP #### [facility] [address] [place] [address] Dr. Spring Nash NEUT # 9.4 103/ul Critically high 1.4-6.5 [facility] Comment on above: Performed By: #### C MP #### [facility] [address] [address] [address] Spring Nash Neutrophils/100 WBC (Bld) 80.0 % Critically high 43.0-75.0 [facility] Comment on above: Performed By: #### C MP #### [facility] [address] [address] [address] Spring Nash Platelet mean volume (Bld) [Entitic vol] 11.8 fL Normal 9.5-13.5 [facility] Comment on above: Performed By: #### C MP #### [facility] [address] [address] [address] Spring Nash PLT 210 103/ul Normal 150-450 [facility] Comment on above: Performed By: #### C MP #### [facility] [address] [address] [address] Spring Nash RBC 3.57 106/ul Critically low 4.70-6.10 [facility] Comment on above: Performed By: #### C MP #### [facility] [address] [address] [address] Spring Nash WBC 11.7 103/ul Critically high 4.0-11.0 [facility] Comment on above: Performed By: #### C MP #### [facility] [address] [place] [address] Dr. Spring Nash CRPon 03-03-2023 CRP 1.0 mg/dL Normal <=1.0 [facility] Comment on above: Performed By: #### B MP #### [facility] [address] [place] [address] Dr. Spring Nash CTA CHEST WO W CONon 023 CTA CHEST WO W CON CTA CHEST WO W CON: 03/02/2023 11:53 PM EDT CLINICAL HISTORY: 52 years old Male with HEART FAILURE, UNSPECIFIED COMPARISON: CT thorax 10/02/2022. TECHNIQUE: CT angiography of the thoracic aorta was performed after the intravenous administration of contrast. Additional 3-D reconstruction images were obtained on a separate workstation to aid in interpretation. Dose reduction techniques were achieved by using automated exposure control and/or adjustment of mA and/or kV according to patient size and/or use of iterative reconstruction technique. FINDINGS: The thoracic aorta is normal in course and caliber without aneurysm, dissection or stenoses. The heart is enlarged without pericardial effusion. Central pulmonary arteries are normally opacified without large filling defect to suggest embolism. Mild coronary artery calcifications are present. No enlarged mediastinal or hilar lymph nodes are identified. The tracheobronchial tree is normally patent. Nonspecific interstitial thickenings and atelectasis are present. Small right greater than left pleural effusions. No mass or consolidation. No pneumothorax. The visualized aspects of the upper abdomen are grossly unremarkable. The osseous structures are grossly intact. Anterior bridging small osteophytes are seen throughout. IMPRESSION: 1. No aortic aneurysm or dissection. 2. Cardiomegaly small right greater than left pleural effusions and mild interstitial edema suggesting congestive heart failure. Electronically authenticated by: LOTTIE NESBITT Date: 2023-03-03 00:50 Normal [facility] D-DIMERon 03-03-2023 D-DIMER 0.67 mg/L FEU Critically high <=0.59 [facility] Comment on above: Performed By: #### P OCGLUC #### [facility] [address] [address] [address] Spring Nash D-DIMER COMMENTS SEE BELOW Normal [facility] Comment on above: Result Comment: Incr eases in D-Dimer concentration observed with thromboembolic events can be variable due to localization, size, and age of the thrombus. Therefore, a thromboembolic event cannot be diagnosed with certainty on the basis of the reference range. D-Dimers may also be elevated for a variety of disorders including: advanced age, , coronary disease, cancer, liver disease, infection, inflammation, hematoma, DIC, trauma, post-surgery, diabetes, thrombolytic or anticoagulant therapy, stress, and generalized hospitalization. Performed By: #### P OCGLUC #### [facility] [address] [address] [address] Spring Nash POINT OF CARE GLUCOSEon 02-12 Glucose [Mass/Vol] 233 mg/dL Critically high 74-106 [facility] Comment on above: Performed By: #### P OCGLUC #### [facility] [address] [address] [address] Spring Nash Glucose [Mass/Vol] 177 mg/dL Critically high 74-106 [facility] Comment on above: Performed By: #### P OCGLUC #### [facility] [address] [place] [address] Dr. Spring Nash Glucose [Mass/Vol] 268 mg/dL Critically high 74-106 [facility] Comment on above: Performed By: #### P OCGLUC #### [facility] [address] [place] [address] Dr. Spring Nash PROF 14(COMP METB)on 023 Albumin [Mass/Vol] 2.6 g/dL Critically low 3.4-5.0 [facility] Comment on above: Performed By: #### C MP, HSTROPN, BNP #### [facility] [address] [place] [address] Dr. Spring Nash Albumin/Globulin [Mass ratio] 0.8 {ratio} Normal [facility] Comment on above: Performed By: #### C MP, HSTROPN, BNP #### [facility] [address] [place] [address] Dr. Spring Nash ALP [Catalytic activity/Vol] 160 U/L Critically high 46-116 [facility] Comment on above: Performed By: #### C MP, HSTROPN, BNP #### [facility] [address] [place] [address] Dr. Spring Nash ALT [Catalytic activity/Vol] 17 U/L Normal 16-63 [facility] Comment on above: Performed By: #### C MP, HSTROPN, BNP #### [facility] [address] [place] [address] Dr. Spring Nash Anion gap [Moles/Vol] 14.8 mmol/L Normal [facility] Comment on above: Performed By: #### C MP, HSTROPN, BNP #### [facility] [address] [place] [address] Dr. Spring Nash AST [Catalytic activity/Vol] 17 U/L Normal 15-37 [facility] Comment on above: Performed By: #### C MP, HSTROPN, BNP #### [facility] [address] [address] [address] Spring Nash Bilirubin [Mass/Vol] 0.5 mg/dL Normal 0.2-1.0 [facility] Comment on above: Performed By: #### C MP, HSTROPN, BNP #### [facility] [address] [place] [address] Dr. Spring Nash Calcium [Mass/Vol] 8.3 mg/dL Critically low 8.5-10.1 [facility] Comment on above: Performed By: #### C MP, HSTROPN, BNP #### [facility] [address] [place] [address] Dr. Spring Nash Chloride [Moles/Vol] 106 mmol/L Normal 98-107 [facility] Comment on above: Performed By: #### C MP, HSTROPN, BNP #### [facility] [address] [place] [address] Dr. Spring Nash CO2 [Moles/Vol] 21.9 mmol/L Normal 21.0-32.0 [facility] Comment on above: Performed By: #### C MP, HSTROPN, BNP #### [facility] [address] [place] [address] Dr. Spring Nash Creatinine [Mass/Vol] 2.00 mg/dL Critically high 0.70-1.30 [facility] Comment on above: Performed By: #### C MP, HSTROPN, BNP #### [facility] [address] [place] [address] Dr. Spring Nash EGFR-AF COSTA RICAN 43 mL/min/1.73m2 Critically low >=60 [facility] Comment on above: Performed By: #### C MP, HSTROPN, BNP #### [facility] [address] [place] [address] Dr. Spring Nash EGFR-NON AF COSTA RICAN 35 mL/min/1.73m2 Critically low >=60 [facility] Comment on above: Performed By: #### C MP, HSTROPN, BNP #### [facility] [address] [place] [address] Dr. Spring Nash Globulin (S) [Mass/Vol] 3.3 g/dL Normal [facility] Comment on above: Performed By: #### C MP, HSTROPN, BNP #### [facility] [address] [place] [address] Dr. Spring Nash Glucose [Mass/Vol] 306 mg/dL Critically high 74-106 [facility] Comment on above: Performed By: #### C MP, HSTROPN, BNP #### [facility] [address] [place] [address] Dr. Spring Nash Potassium [Moles/Vol] 3.7 mmol/L Normal 3.5-5.1 [facility] Comment on above: Performed By: #### C MP, HSTROPN, BNP #### [facility] [address] [place] [address] Dr. Spring Nash Protein [Mass/Vol] 5.9 g/dL Critically low 6.4-8.2 [facility] Comment on above: Performed By: #### C MP, HSTROPN, BNP #### [facility] [address] [place] [address] Dr. Spring Nash Sodium [Moles/Vol] 139 mmol/L Normal 136-145 [facility] Comment on above: Performed By: #### C MP, HSTROPN, BNP #### [facility] [address] [place] [address] Dr. Spring Nash Urea nitrogen [Mass/Vol] 30.0 mg/dL Critically high 7.0-18.0 [facility] Comment on above: Performed By: #### C MP, HSTROPN, BNP #### [facility] [address] [place] [address] Dr. Spring Nash Urea nitrogen/Creatinine [Mass ratio] 15.0 mg/mg Normal [facility] Comment on above: Performed By: #### C MP, HSTROPN, BNP #### [facility] [address] [place] [address] Dr. Spring Nash Albumin [Mass/Vol] 2.7 g/dL Critically low 3.4-5.0 [facility] Comment on above: Performed By: #### C MP, HSTROPN, BNP #### [facility] [address] [place] [address] Dr. Spring Nash Albumin/Globulin [Mass ratio] 0.8 {ratio} Normal [facility] Comment on above: Performed By: #### C MP, HSTROPN, BNP #### [facility] [address] [place] [address] Dr. Spring Nash ALP [Catalytic activity/Vol] 188 U/L Critically high 46-116 [facility] Comment on above: Performed By: #### C MP, HSTROPN, BNP #### [facility] [address] [place] [address] Dr. Spring Nash ALT [Catalytic activity/Vol] 19 U/L Normal 16-63 [facility] Comment on above: Performed By: #### C MP, HSTROPN, BNP #### [facility] [address] [place] [address] Dr. Spring Nash Anion gap [Moles/Vol] 14.4 mmol/L Normal [facility] Comment on above: Performed By: #### C MP, HSTROPN, BNP #### [facility] [address] [place] [address] Dr. Spring Nash AST [Catalytic activity/Vol] 18 U/L Normal 15-37 [facility] Comment on above: Performed By: #### C MP, HSTROPN, BNP #### [facility] [address] [place] [address] Dr. Spring Nash Bilirubin [Mass/Vol] 0.4 mg/dL Normal 0.2-1.0 [facility] Comment on above: Performed By: #### C MP, HSTROPN, BNP #### [facility] [address] [place] [address] Dr. Spring Nash Calcium [Mass/Vol] 8.3 mg/dL Critically low 8.5-10.1 [facility] Comment on above: Performed By: #### C MP, HSTROPN, BNP #### [facility] [address] [address] [address] Spring Nash Chloride [Moles/Vol] 106 mmol/L Normal 98-107 [facility] Comment on above: Performed By: #### C MP, HSTROPN, BNP #### [facility] [address] [place] [address] Dr. Spring Nash CO2 [Moles/Vol] 23.7 mmol/L Normal 21.0-32.0 [facility] Comment on above: Performed By: #### C MP, HSTROPN, BNP #### [facility] [address] [place] [address] Dr. Spring Nash Creatinine [Mass/Vol] 2.10 mg/dL Critically high 0.70-1.30 [facility] Comment on above: Performed By: #### C MP, HSTROPN, BNP #### [facility] [address] [place] [address] Dr. Spring Nash EGFR-AF COSTA RICAN 41 mL/min/1.73m2 Critically low >=60 [facility] Comment on above: Performed By: #### C MP, HSTROPN, BNP #### [facility] [address] [place] [address] Dr. Spring Nash EGFR-NON AF COSTA RICAN 33 mL/min/1.73m2 Critically low >=60 [facility] Comment on above: Performed By: #### C MP, HSTROPN, BNP #### [facility] [address] [place] [address] Dr. Spring Nash Globulin (S) [Mass/Vol] 3.4 g/dL Normal [facility] Comment on above: Performed By: #### C MP, HSTROPN, BNP #### [facility] [address] [place] [address] Dr. Spring Nash Glucose [Mass/Vol] 343 mg/dL Critically high 74-106 [facility] Comment on above: Performed By: #### C MP, HSTROPN, BNP #### [facility] [address] [address] [address] Spring Nash Potassium [Moles/Vol] 4.1 mmol/L Normal 3.5-5.1 [facility] Comment on above: Performed By: #### C MP, HSTROPN, BNP #### [facility] [address] [address] [address] Spring Nash Protein [Mass/Vol] 6.1 g/dL Critically low 6.4-8.2 [facility] Comment on above: Performed By: #### C MP, HSTROPN, BNP #### [facility] [address] [address] [address] Spring Nash Sodium [Moles/Vol] 140 mmol/L Normal 136-145 [facility] Comment on above: Performed By: #### C MP, HSTROPN, BNP #### [facility] [address] [place] [address] Dr. Spring Nash Urea nitrogen [Mass/Vol] 29.0 mg/dL Critically high 7.0-18.0 [facility] Comment on above: Performed By: #### C MP, HSTROPN, BNP #### [facility] [address] [place] [address] Dr. Spring Nash Urea nitrogen/Creatinine [Mass ratio] 13.8 mg/mg Normal [facility] Comment on above: Performed By: #### C MP, HSTROPN, BNP #### [facility] [address] [address] [address] Spring Nash [facility] mm/hr Critically high <=20 [facility] Comment on above: Performed By: #### C MP, HSTROPN, BNP #### [facility] [address] [place] [address] Dr. Spring Nash TROPONIN, HIGH SENSITIVITYon 03-03-2023 HSTROP 44.7 pg/mL Normal 4.0-76.1 [facility] Comment on above: Result Comment: CUT- OFF POINTS HAVE BEEN ESTABLISHED BASED ON THE FOURTH UNIVERSAL DEFINITIONS OF MYOCARDIAL INFARCTION. THE UPPER REFERENCE LIMIT (URL) OF TROPONIN, DEFINED THE 99TH PERCENTILE OF cTnI DISTRIBUTION IN A REFERENCE POPULATION, HAS BEEN CONFIRMED THE DECISION THRESHOLD FOR TX DIAGNOSIS. Performed By: #### C MP, HSTROPN, BNP #### [facility] [address] [place] [address] Dr. Spring Nash URIC ACID SERUMon 03-03-2023 Urate [Mass/Vol] 7.3 mg/dL Critically high 3.5-7.2 [facility] Comment on above: Performed By: #### B MP #### [facility] [address] [address] [address] Spring Nash Covid-19 PCR ([facility])on 01-13 SARS-CoV-2 (COVID-19) RNA HONEY+probe Ql (Unsp spec) Not detected Normal NOT DETECTED [facility] Comment on above: Result Comment: This test is not yet approved or cleared by the [place] FDA. When there are no FDA-approved or cleared tests available, and other criteria are met, FDA can make tests available under an emergency access mechanism called an Emergency Use Authorization (EUA). The EUA for this test is supported by the Tax Preparer of Health and Human Service's (HHS's) declaration that circumstances exist to justify the emergency use of in vitro diagnostics for the detection and/or diagnosis of the virus that causes COVID-19. This EUA will remain in effect (meaning this test can be used) for the duration of the COVID-19 declaration justifying emergency of IVDs, unless it is terminated or revoked by FDA (after which the test may no longer be used). When diagnostic testing is negative, the possibility of a false negative should be considered in the context of a patient's recent exposures and the presence of clinical signs and symptoms consistent with SARS-CoV-2. Performed By: #### C MP, HSTROPN, BNP #### [facility] [address] [address] [address] Spring Nash INFLUENZA A AND B AGon 01-31 INFLUANEGH SEE BELOW Normal [facility] Comment on above: Result Comment: Nega tive for Flu A protein angiten. Infection due to Flu A cannot be ruled out. Flu A angiten in the sample may be below the detection limit of the test. Performed By: #### C MP, HSTROPN, BNP #### [facility] [address] [place] [address] Dr. Spring Nash INFLUBNEGH SEE BELOW Normal [facility] Comment on above: Result Comment: Nega tive for Flu B protein antigen. Infection due to Flu B cannot be ruled out. Flu B antigen in the sample may be below the detection limit of the test. Performed By: #### C MP, HSTROPN, BNP #### [facility] [address] [place] [address] Dr. Spring Nash INFLUENZA A AG Negative Normal NEGATIVE SEE COMMENT [facility] Comment on above: Performed By: #### C MP, HSTROPN, BNP #### [facility] [address] [place] [address] Dr. Spring Nash INFLUENZA B AG Negative Normal NEGATIVE SEE COMMENT [facility] Comment on above: Performed By: #### C MP, HSTROPN, BNP #### [facility] [address] [place] [address] Dr. Spring Nash SYMPTOMATIC COVID-19 ANTIGEN on 01-31-2023 EUA Statement SEE BELOW Normal [facility] Comment on above: Result Comment: This test has not been FDA cleared or approved, but has been authorized by the FDA under an Emergency Use Authorization (EUA) for use by authorized laboratories certified under CLIA that meet the requirements to perform moderate or high complexity testing. This test has been authorized only for the detection of proteins from SARS-CoV-2, not for any other viruses or pathogens. The emergency use of this test is authorized for the duration of the declaration that circumstances exist justifying the authorization of emergency use of in vitro diagnostic tests for detection and/or diagnosis of Covid-19 under section 564(b)(1) of the Act, 21 U.S.C. 360bbb-3(b)(1), unless the declaration is terminated or authorization is revoked sooner. Performed By: #### P OCGLUC #### [facility] [address] [place] [address] Dr. Spring Nash SARS-CoV-2 (COVID-19) RNA HONEY+probe Ql (Unsp spec) Negative Normal NEGATIVE [facility] Comment on above: Performed By: #### P OCGLUC #### [facility] [address] [place], [place] [address] Dr. Spring Nash Study observation Right reti na by OCTon 01-08-2023 [facility] Radiology Study observation (narrative) [facility] Telephone Encounteron 2022 [employer] Authentication Interface Message Text Pt's family member Ayla Minor called to let us know that pt is admitted to the hospital currently so he would need to have the urgent eye appt for tomorrow rescheduled. Contact Ayla @[phone] Normal [facility] [facility] Telephone Encounteron 2022 Mineral Engineer Authentication Interface Message Text Patient states can come in next Saturday at 10 am Normal [facility] Patient Instructionson 01-01 [employer] Authentication Interface Message Text Use the provided antibiotic ointment on the eyelids and in both eyes 4x per day until redness and irritation resolves. If your symptoms worsen, please call or report to a local urgent care/emergency department. Our team will call you tomorrow to schedule your next visit. If you do not hear from us tomorrow, please call on to schedule an appointment for next Saturday. Normal [facility] Progress Noteson 01-01-2023 [employer] Authentication Interface Message Text Urgent visit for eye irritation OU and vision change OS Pt had recent visit with Dr. Frank on 12/19/22 in which he received PRP OU Prior to that visit, last visit was 03/2022 Longstanding PDR OU, DME, mac ischemia OU Did not notice any real improvement with injections Floaters did improve, now they are back A/P 1. 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 OU - acute change is likely related to interval increase in macular edema as demonstrated on OCT - Has been lost to follow-up in the past due to poor health and hospital admissions - lives 2 hours away RIGHT - PDR without HRC - VA CF - s/p PRP multiple injections - avastin 02/2021, March 2022 - Active NVD - avastin OD - OCT - interval increase in CME - PRP fill in as he is missing visits LEFT- PDR with VH and subhyaloid heme - OCT - interval increase in CME - S/P avastin multiple, most recent March 2022 - s/p PRP OS 10/24/20, fillin oct 2021 - add fillin at next visit - avastin OS Next visit PRP either eye Advised pt will need close f/u with Dr. Frank Offered appointment tomorrow, pt declines due to drive Will arrange for visit next Saturday; will have schedulers call pt to arrange (he needs to check with family members re: timing) 2. Conjunctivitis OU 3. Redness, flakiness of upper eyelid skin OU - Pt reports irritation, itchiness, burning, and occasional stabbing pains OU. ROS negative including for fevers, malaise, URI symptoms. No recent sick contacts. No one else in the home has similar symptoms - Exam notable for diffuse tr inj OD, 1+ OU, mild papillary rxn, mucous discharge. No induration, overall very low c/f cellulitis. Appearance is most consistent with viral conjunctivitis versus contact dermatitis/allergic conjunctivitis - Erythromycin ointment QID to eyes and lids - Cool compresses, ATs PRN, good hand hygiene - Strict precautions to call or report to local ED/urgent care (pt lives ~2 hrs away) for worsening symptoms - pt reports understanding and is in agreement Not specifically addressed today: Amaurosis fugax OU - Reported ~08/2020 with transient vision loss episodes but now resolved as of 10/2020 - 12/2019 MRA neck no ICA stenosis - GCA symptoms POWELL, jaw mikaela, F/C negative - rec go to ED if symptoms recur Dilate ou Oct ou Color photos ou PRP Maddie Lau MD Ophthalmology Resident Seen with Dr. Lowry I saw and evaluated the patient and supervised procedures performed. I personally obtained the mccoy and critical portions of the history and the ophthalmologic exam. I reviewed the resident's documentation and discussed the patient's history and examination with the resident. I agree with the resident's medical decision making as documented in the resident's note. Brady Lowry MD Normal [facility] Telephone Encounteron 2022 Mineral Engineer Authentication Interface Message Text On chart review, the patient has a history of Longstanding PDR OU, DME, and macular ischemia OU last seen 12/19/[address] Frank I called the patient at 10:02 AM to discuss his symptoms. The patient reports dyer vision in left eye since yesterday He is at baseline CF. Also discharge. We will bring the patient in for an urgent visit at [facility] Eye clinic located 3rd floor [facility] Urgent visit today at 2:00 PM. Dilate OU Lyndsay Cooper MD Ophthalmology Resident, PGY-2 Normal [facility] Authentication Interface Message Text Mr. Minor is a patient of Dr. Frank. He cannot see out of his R eye... sees nothing. States he woke up today with eye unable to open due to discharge. Believes he has an infection. He can be reached at [phone]. Normal [facility] [employer] [facility] FUNDUS PHOTOS - OU - BOTH EY ESon 12-19-2022 Right Eye Macula findings include microaneurysms. Periphery findings include hemorrhage. Left Eye Macula findings include microaneurysms. Periphery findings include hemorrhage, neovascularization. [facility] Radiology Study observation (narrative) [facility] CUI RETINAL PHOTOCOAGULATION - OU - BOTH EYESon 12-19-2022 [facility] Radiology Study observation (narrative) [facility] Progress Noteson 12-19-2022 [employer] Engineer Authentication Interface Message Text Lost to f/u since March 2022 Longstanding PDR OU, DME, mac ischemia OU Sp PRP OU, last seen in March Repeated injections - last March 2022 Did not notice any real improvement with injections Floaters did improve, now they are back A/P 1. 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 OU - Has been lost to follow-up in the past due to poor health and hospital admissions RIGHT - PDR without HRC - [facility] CF - s/p PRP multiple injections - avastin 02/2021, March 2022 - Active NVD - avastin OD OCT stable thinning/atrophy PRP OD today LEFT- PDR with VH and subhyaloid heme - OCT - improved CME - S/P avastin multiple, most recent March 2022 - s/p PRP OS 10/24/20, fillin oct 2021 OCT stable thinning/atrophy PRP OS today Needs fill in PRP to prevent other neovascular complications Next visit PRP either eye Not specifically addressed today: 2. Amaurosis fugax OU - Reported ~08/2020 with transient vision loss episodes but now resolved as of 10/2020 - 12/2019 MRA neck no ICA stenosis - GCA symptoms POWELL, jaw mikaela, F/C negative - rec go to ED if symptoms recur Return 2 months Dilate OU OCT mac OU Normal [facility] Study observation Right reti na by 12-19-2022 [facility] Radiology Study observation (narrative) [facility] INTRAVITREAL INJECTION, PHAR MACOLOGIC AGENT - OU - BOTH EYESon 10-17-2022 Time Out The date was 10/17/2022. The time was 4:55 PM. Confirmed correct patient, procedure, site, and patient consented. Anesthesia Right Eye Subconjunctival anesthesia was used. Anesthetic medications included Lidocaine 2%. Left Eye Subconjunctival anesthesia was used. Anesthetic medications included Lidocaine 2%. Procedure Right Eye Preparation included 10% betadine to eyelids. A 30 gauge needle was used. Injection Medications: 1.25 mg bevacizumab 1.25MG/0.05 mL Route: Intravitreal, Site: Right Eye Lot: [id number], Expiration date: 10/18/2022 Left Eye Preparation included 10% betadine to eyelids. A 30 gauge needle was used. Injection Medications: 1.25 mg bevacizumab 1.25MG/0.05 mL Route: Intravitreal, Site: Left Eye Lot: [id number], Expiration date: 10/18/2022 Post-op Right Eye Post injection exam found visual acuity of at least counting fingers. Post injection medications were not given. There were no complications. Left Eye Post injection exam found visual acuity of at least counting fingers. Post injection medications were not given. There were no complications. General Details The patient tolerated the procedure well. The patient received written and verbal post procedure care education. [facility] Radiology Study observation (narrative) [facility] Study observation Right reti na by 10-17-2022 [facility] Radiology Study observation (narrative) [facility] CBC W MANUAL DIFFon 10-04-20 22 ATYPICAL LYMPH # Normal [facility] Comment on above: Performed By: #### C SHIRA #### [facility] [address] [place] [address] Dr. Spring Nash ATYPICAL LYMPH % Normal [facility] Comment on above: Performed By: #### C BCMAN #### [facility] [address] [place] [address] Dr. Spring Nash BAND # 0.0 103/ul Normal 0.0-0.3 [facility] Comment on above: Performed By: #### C BCMAN #### [facility] [address] [place] [address] Dr. Spring Nash BAND % 0 % Normal 0-5 [facility] Comment on above: Performed By: #### C BCMAN #### [facility] [address] [place] [address] Dr. Spring Nash BASOM # 0.00 103/ul Normal 0.00-0.10 [facility] Comment on above: Performed By: #### C BCMAN #### [facility] [address] [place] [address] Dr. Spring Nash BASOM % 0.0 % Critically low 0.2-2.0 [facility] Comment on above: Performed By: #### C BCMAN #### [facility] [address] [place] [address] Dr. Spring Nash BLAST # Normal [facility] Comment on above: Performed By: #### C BCMAN #### [facility] [address] [place] [address] Dr. Spring Nash BLAST % Normal [facility] Comment on above: Performed By: #### C BCMAN #### [facility] [address] [place] [address] Dr. Spring Nash CORRECTED WBC Normal 4.0-11.0 [facility] Comment on above: Performed By: #### C BCMAN #### [facility] [address] [place] [address] Dr. Spring Nash EOS # 0.00 103/ul Normal 0.00-0.70 [facility] Comment on above: Performed By: #### C BCMAN #### [facility] [address] [place] [address] Dr. Spring Nash EOS% 0.0 % Critically low 0.9-7.0 [facility] Comment on above: Performed By: #### C BCERICKSON #### [facility] [address] [address] [address] Spring Nash HCT 28.5 % Critically low 42.0-54.0 [facility] Comment on above: Performed By: #### C SHIRA #### [facility] [address] [address] [address] Spring Nash HGB 9.5 g/dl Critically low 14.0-18.0 [facility] Comment on above: Performed By: #### C SHIRA #### [facility] [address] [address] [address] Spring Nash LYMPHM # 0.00 103/ul Critically low 1.20-3.80 [facility] Comment on above: Performed By: #### C SHIRA #### [facility] [address] [place] [address] Dr. Spring Nash LYMPHM% 0.0 % Critically low 20.5-60.0 [facility] Comment on above: Performed By: #### C SHIRA #### [facility] [address] [place] [address] Dr. Spring Nash MCH 30.3 pg Normal 25.9-34.0 [facility] Comment on above: Performed By: #### C SHIRA #### [facility] [address] [address] [address] Spring Nash MCHC 33.3 g/dl Normal 29.9-35.2 [facility] Comment on above: Performed By: #### C SHIRA #### [facility] [address] [address] [address] Spring Nash MCV 90.8 fL Normal 80.0-94.0 [facility] Comment on above: Performed By: #### C SHIRA #### [facility] [address] [address] [address] Spring Nash METAMYELOCYTE # Normal [facility] Comment on above: Performed By: #### C SHIRA #### [facility] [address] [address] [address] Spring Nash METAMYELOCYTE % Normal [facility] Comment on above: Performed By: #### C SHIRA #### [facility] [address] [address] [address] Spring Nash MONOM# 0.00 103/ul Critically low 0.30-0.80 [facility] Comment on above: Performed By: #### C SHIRA #### [facility] [address] [address] [address] Spring Nash MONOM% 0.0 % Critically low 1.7-12.0 [facility] Comment on above: Performed By: #### C SHIRA #### [facility] [address] [place] [address] Dr. Spring Nash MPV 12.0 fL Normal 9.5-13.5 [facility] Comment on above: Performed By: #### C SHIRA #### [facility] [address] [place] [address] Dr. Spring Nash MYELOCYTE # Normal [facility] Comment on above: Performed By: #### C SHIRA #### [facility] [address] [place] [address] Dr. Spring Nash MYELOCYTE % Normal [facility] Comment on above: Performed By: #### C SHIRA #### [facility] [address] [place] [address] Dr. Spring Nash NRBC Normal [facility] Comment on above: Performed By: #### C SHIRA #### [facility] [address] [place] [address] Dr. Spring Nash PLT 182 103/ul Normal 150-450 [facility] Comment on above: Performed By: #### C SHIRA #### [facility] [address] [place] [address] Dr. Spring Nash RBC 3.14 106/ul Critically low 4.70-6.10 [facility] Comment on above: Performed By: #### C SHIRA #### [facility] [address] [place] [address] Dr. Spring Nash RDW 13.4 % Normal 11.0-15.0 [facility] Comment on above: Performed By: #### C SHIRA #### [facility] [address] [address] [address] Spring Nash SEG # 11.40 103/ul Critically high 1.40-6.50 [facility] Comment on above: Performed By: #### C BCMAN #### [facility] [address] [address] [address] Spring Nash SEG % 100.0 % Critically high 43.0-75.0 [facility] Comment on above: Performed By: #### C SHIRA #### [facility] [address] [address] [address] Spring Nash WBC 11.4 103/ul Critically high 4.0-11.0 [facility] Comment on above: Performed By: #### C SHIRA #### [facility] [address] [place] [address] Dr. Spring Nash POINT OF CARE GLUCOSEon 09-14 Glucose [Mass/Vol] 243 mg/dL Critically high 74-106 [facility] Comment on above: Performed By: #### P OCGLUC #### [facility] [address] [place] [address] Dr. Spring Nash Glucose [Mass/Vol] 219 mg/dL Critically high 74-106 [facility] Comment on above: Performed By: #### P OCGLUC #### [facility] [address] [place] [address] Dr. Spring Nash PROF 14(COMP METB)on 022 Albumin [Mass/Vol] 2.5 g/dL Critically low 3.4-5.0 [facility] Comment on above: Performed By: #### C MP #### [facility] [address] [place] [address] Dr. Spring Nash Albumin/Globulin [Mass ratio] 0.7 {ratio} Normal [facility] Comment on above: Performed By: #### C MP #### [facility] [address] [place] [address] Dr. Spring Nash ALP [Catalytic activity/Vol] 96 U/L Normal 46-116 [facility] Comment on above: Performed By: #### C MP #### [facility] [address] [place] [address] Dr. Spring Nash ALT [Catalytic activity/Vol] 16 U/L Normal 16-63 [facility] Comment on above: Performed By: #### C MP #### [facility] [address] [place] [address] Dr. Spring Nash Anion gap [Moles/Vol] 12.3 mmol/L Normal [facility] Comment on above: Performed By: #### C MP #### [facility] [address] [place] [address] Dr. Spring Nash AST [Catalytic activity/Vol] 20 U/L Normal 15-37 [facility] Comment on above: Performed By: #### C MP #### [facility] [address] [place] [address] Dr. Spring Nash Bilirubin [Mass/Vol] 0.2 mg/dL Normal 0.2-1.0 [facility] Comment on above: Performed By: #### C MP #### [facility] [address] [place] [address] Dr. Spring Nash Calcium [Mass/Vol] 8.2 mg/dL Critically low 8.5-10.1 [facility] Comment on above: Performed By: #### C MP #### [facility] [address] [place] [address] Dr. Spring Nash Chloride [Moles/Vol] 102 mmol/L Normal 98-107 [facility] Comment on above: Performed By: #### C MP #### [facility] [address] [place] [address] Dr. Spring Nash CO2 [Moles/Vol] 24.4 mmol/L Normal 21.0-32.0 [facility] Comment on above: Performed By: #### C MP #### [facility] [address] [place] [address] Dr. Spring Nash Creatinine [Mass/Vol] 1.96 mg/dL Critically high 0.70-1.30 [facility] Comment on above: Performed By: #### C MP #### [facility] [address] [address] [address] Spring Nash EGFR-AF [place] 44 mL/min/1.73m2 Critically low >=60 [facility] Comment on above: Performed By: #### C MP #### [facility] [address] [address] [address] Spring Nash EGFR-NON AF [place] 36 mL/min/1.73m2 Critically low >=60 [facility] Comment on above: Performed By: #### C MP #### [facility] [address] [address] [address] Spring Nash Globulin (S) [Mass/Vol] 3.5 g/dL Normal [facility] Comment on above: Performed By: #### C MP #### [facility] [address] [address] [address] Spring Nash Glucose [Mass/Vol] 196 mg/dL Critically high 74-106 [facility] Comment on above: Performed By: #### C MP #### [facility] [address] [address] [address] Spring Nash Potassium [Moles/Vol] 4.7 mmol/L Normal 3.5-5.1 [facility] Comment on above: Performed By: #### C MP #### [facility] [address] [address] [address] Spring Nash Protein [Mass/Vol] 6.0 g/dL Critically low 6.4-8.2 [facility] Comment on above: Performed By: #### C MP #### [facility] [address] [place] [address] Dr. Spring Nash Sodium [Moles/Vol] 134 mmol/L Critically low 136-145 [facility] Comment on above: Performed By: #### C MP #### [facility] [address] [address] [address] Spring Nash Urea nitrogen [Mass/Vol] 47.0 mg/dL Critically high 7.0-18.0 [facility] Comment on above: Performed By: #### C MP #### [facility] [address] [place] [address] Dr. Spring Nash Urea nitrogen/Creatinine [Mass ratio] 24.0 mg/mg Normal [facility] Comment on above: Performed By: #### C MP #### [facility] [address] [place] [address] Dr. Spring Nash CARDIAC EDWARD 3-6on 2 CK [Catalytic activity/Vol] 262 U/L Normal 39-308 [facility] Comment on above: Performed By: #### C MP, HSTROPN, BNP #### [facility] [address] [place] [address] Dr. Spring Nash CK.MB [Mass/Vol] 3.55 ng/mL Normal <=3.60 [facility] Comment on above: Performed By: #### C MP, HSTROPN, BNP #### [facility] [address] [place] [address] Dr. Spring Nash HSTROP 25.8 pg/mL Normal 4.0-76.1 [facility] Comment on above: Result Comment: CUT- OFF POINTS HAVE BEEN ESTABLISHED BASED ON THE FOURTH UNIVERSAL DEFINITIONS OF MYOCARDIAL INFARCTION. THE UPPER REFERENCE LIMIT (URL) OF TROPONIN, DEFINED THE 99TH PERCENTILE OF cTnI DISTRIBUTION IN A REFERENCE POPULATION, HAS BEEN CONFIRMED THE DECISION THRESHOLD FOR TX DIAGNOSIS. Performed By: #### C MP, HSTROPN, BNP #### [facility] [address] [place] [address] Dr. Spring Nash CTA CHEST WO W CONon 022 CTA CHEST WO W CON EXAMINATION: CTA [place] ST WO W CON HISTORY: Shortness of breath, chest pain, cough. Pulmonary embolism reported medical history of sarcoidosis. COMPARISON: Chest x-ray 07/31/2022, CT chest 05/07/2021 TECHNIQUE: CT angiography of the pulmonary arteries following the administration of 100 mL Omnipaque 350 intravenous contrast. Coronal and sagittal MIP (maximum intensity projection) images were performed. 3-D reconstruction. Dose reduction techniques were achieved by using automated exposure control and/or adjustment of mA and/or kV according to patient size and/or use of iterative reconstruction technique. FINDINGS: No large central pulmonary embolism from the main to the proximal segmental pulmonary artery level. The bilateral peripheral segmental and subsegmental pulmonary arteries are obscured by respiratory motion artifact and are not well evaluated. No thoracic aortic aneurysm or aortic dissection. Moderate left coronary artery calcifications. Central airway is patent. Developing rwspg-pw-tmirfkpo bilateral pleural effusions occupying 20-30% of each hemithorax. Scattered bilateral lung edema. Multiple developing prominent 10-20 mm bilateral mediastinal and hilar lymph nodes are new since CT 05/07/2021 could reflect sequela of systemic inflammatory or other etiology. Small hiatal hernia. No acute bony abnormality. IMPRESSION: No large central pulmonary embolism from the main to the proximal segmental pulmonary artery level. The bilateral peripheral segmental and subsegmental pulmonary arteries are obscured by respiratory motion artifact and are not well evaluated. Developing pdlol-uz-imofntue bilateral pleural effusions occupying 20-30% of each hemithorax. Scattered bilateral lung edema. Moderate left coronary artery calcifications. Multiple developing prominent 10-20 mm bilateral mediastinal and hilar lymph nodes are new since CT 05/07/2021 could reflect sequela of systemic inflammatory or other etiology. Differential includes venolymphatic congestion from edema, sarcoidosis, other granulomatous etiology, systemic inflammatory etiology, lymphoproliferative or other etiology. Correlate clinically. The previously seen 5 mm solid noncalcified right middle lobe pulmonary nodule is currently obscured by respiratory motion artifact. Electronically authenticated by: SHRUTI HANCOCK Date: 2022-10-02 22:48 Normal [facility] ECHO LIMITED STUDYon 022 ECHO LIMITED STUDY Patient: MELVI MINOR Exam Date: 10/03/2022 : 1970 Gender:M Ordering : DR KEVON CASTELLANO . Admission #: [id number] Family : DR FADI TENORIO D.O. Order #: [id number] CLICK HERE TO VIEW EXAM ECHOCARDIOGRAM REPORT PROCEDURE: CARDIO PULMONARY ECHO LIMITED STUDY INDICATIONS: Elevated BNP, COPD, CAD, hypertension, diabetes, Parkinson's disease, sleep apnea COMPARISON: None. DESCRIPTION: Limited ECHOCARDIOGRAM Real-time transthoracic echocardiography with 2D and M-mode performed. QUALITY: Technical quality was adequate. Limited Echocardiogram per physician order. 67 230# BP 155/75 LEFT VENTRICLE: Normal chamber size. Mild concentric left ventricular hypertrophy. LV EF: Normal left ventricular ejection fraction, (55%). DIASTOLIC: ATRIAL SEPTUM: LEFT ATRIUM: Moderate dilatation. RIGHT ATRIUM: Mild dilatation. RIGHT VENTRICLE: Normal chamber size. TRICUSPID VALVE: Normal mobility and thickness. Normal systolic function. MITRAL VALVE: Normal mobility and thickness. There is no mitral annular calcification. AORTIC VALVE: Normal trileaflet appearance. Mildly calcified aortic valve. Normal leaflet mobility. AORTIC ROOT: Normal diameter and appearance. PULMONIC VALVE: Not well visualized. PERICARDIUM: No evidence of pericardial effusion. IVC: Not well visualized. PLEURA: CONCLUSION: 1. Normal ventricular systolic function. 2. Mildly calcified aortic valve with normal leaflet mobility. 3. Mild to moderate atrial dilatation. 4. No pericardial effusion. 5. Study performed with no Doppler interrogation as requested. Adult Echocardiography Procedure Report Left Ventricle LVEDD (3.7 - 5.6 cm): 4.53 cm LVESD (2.2 - 4.0 cm): 3.35 cm LVIVS thickness (0.6 - 1.2 cm): 1.19 cm LVPW thickness (0.5 - 1.0 cm): 1.38 cm LVOT Diameter 2.31 cm Left Ventricular Ejection Fraction: 55 % Left Atrium LA Volume Index (2D A2C): 91.12 ml, 91.12 ml Left Atrium Systolic Dimension: 5.34 cm Mitral Valve Right Ventricle Aorta AO Root Diam: 3.74 cm Aortic Valve Tricuspid Valve Pulmonic Valve Right Atrium Right Atrium Systolic Pressure: 34.50 ml, 34.50 ml Dictated by: Jason Lord M.D. on 10/03/2022 at 13:11 Approved by: Jason Lord M.D. on 10/03/2022 at 13:17 Normal [facility] GLUCOSE BLOODon 10-03-2022 Glucose [Mass/Vol] 551 mg/dL Critically high 74-106 [facility] Comment on above: Performed By: #### B MP #### [facility] [address] [place] [address] Dr. Spring Nash GLYCOHEMOGLOBIN A1Con 2021 ADA RECOMMENDATION SEE BELOW Normal [facility] Comment on above: Result Comment: ADA RECOMMENDED LIMIT 4.0 - 6.0 ADA THERAPEUTIC TARGET < 7.0 ACTION SUGGESTED > 7.0 Performed By: #### B MP #### [facility] [address] [address] [address] Spring Nash Glucose [Mass/Vol] 301 mg/dL Normal [facility] Comment on above: Performed By: #### B MP #### [facility] [address] [address] [address] Spring Nash HbA1c (Bld) [Mass fraction] 12.1 % Critically high 4.5-6.2 [facility] Comment on above: Performed By: #### B MP #### [facility] [address] [place] [address] Dr. Spring Nash POINT OF CARE GLUCOSEon 09-14 Glucose [Mass/Vol] 367 mg/dL Critically high [facility]106 [facility] Comment on above: Performed By: #### C SHAUN VERDE, BNP #### [facility] [address] [place] [address] Dr. Spring Nash Glucose [Mass/Vol] 215 mg/dL Critically high [address] [place] [address] Comment on above: Performed By: #### C SHAUN VERDE, BNP #### [facility] [address] [place] [address] Dr. Spring Nash Glucose [Mass/Vol] 404 mg/dL Critically high [address] [place] [address] Comment on above: Performed By: #### P OCGLUC #### [facility] [address] [place] [address] Dr. Spring Nash Glucose [Mass/Vol] 486 mg/dL Critically high [address] [place] [address] Comment on above: Performed By: #### P OCGLUC #### [facility] [address] [place] [address] Dr. Spring Nash Glucose [Mass/Vol] 542 mg/dL Critically high [facility]106 [facility] Comment on above: Result Comment: Resu lt Not Confirmed Performed By: #### P OCGLUC #### [facility] [address] [place] [address] Dr. Spring Nash ACETONE SERUMon 10-02-2022 ACETONE Negative Normal NEGATIVE [facility] Comment on above: Performed By: #### P OCGLUC #### [facility] [address] [place] [address] Dr. Spring Nash BNPon 10-02-2022 Natriuretic peptide B (Bld) [Mass/Vol] 3142.0 pg/mL Critically high <=900.0 [facility] Comment on above: Performed By: #### P OCGLUC #### [facility] [address] [place] [address] Dr. Spring Nash CARDIAC EDWARD 3-6on 2 CK [Catalytic activity/Vol] 250 U/L Normal 39-308 [facility] Comment on above: Performed By: #### P OCGLUC #### [facility] [address] [place] [address] Dr. Spring Nash CK.MB [Mass/Vol] 3.41 ng/mL Normal <=3.60 [facility] Comment on above: Performed By: #### P OCGLUC #### [facility] [address] [place] [address] Dr. Spring Nash HSTROP 27.1 pg/mL Normal 4.0-76.1 [facility] Comment on above: Result Comment: CUT- OFF POINTS HAVE BEEN ESTABLISHED BASED ON THE FOURTH UNIVERSAL DEFINITIONS OF MYOCARDIAL INFARCTION. THE UPPER REFERENCE LIMIT (URL) OF TROPONIN, DEFINED THE 99TH PERCENTILE OF cTnI DISTRIBUTION IN A REFERENCE POPULATION, HAS BEEN CONFIRMED THE DECISION THRESHOLD FOR TX DIAGNOSIS. Performed By: #### P OCGLUC #### [facility] [address] [place] [address] Dr. Spring Nash CBC AUTO DIFFon 10-02-2022 BASO # 0.0 103/ul Normal 0.0-0.1 [facility] Comment on above: Performed By: #### C MP #### [facility] [address] [place] [address] Dr. Spring Nash Basophils/100 WBC (Bld) 0.2 % Normal 0.2-2.0 [facility] Comment on above: Performed By: #### C MP #### [facility] [address] [address] [address] Spring Nash EO # 0.4 103/ul Normal 0.0-0.7 [facility] Comment on above: Performed By: #### C MP #### [facility] [address] [place] [address] Dr. Spring Nash Eosinophils/100 WBC (Bld) 3.5 % Normal 0.9-7.0 [facility] Comment on above: Performed By: #### C MP #### [facility] [address] [place] [address] Dr. Srping Nash Erythrocyte distribution width (RBC) [Ratio] 13.0 % Normal 11.0-15.0 [facility] Comment on above: Performed By: #### C MP #### [facility] [address] [place] [address] Dr. Spring Nash Hematocrit (Bld) [Volume fraction] 34.2 % Critically low 42.0-54.0 [facility] Comment on above: Performed By: #### C MP #### [facility] [address] [place] [address] Dr. Spring Nash Hemoglobin (Bld) [Mass/Vol] 11.8 g/dL Critically low 14.0-18.0 [facility] Comment on above: Performed By: #### C MP #### [facility] [address] [place] [address] Dr. Spring Nash IG # 0.07 10e3/ul Critically high 0.00-0.03 [facility] Comment on above: Performed By: #### C MP #### [facility] [address] [place] [address] Dr. Spring Nash IG % 0.6 % Critically high 0.0-0.5 [facility] Comment on above: Performed By: #### C MP #### [facility] [address] [place] [address] Dr. Spring Nash LYMPH # 1.2 103/ul Normal 1.2-3.8 [facility] Comment on above: Performed By: #### C MP #### [facility] [address] [address] [address] Spring Nash Lymphocytes/100 WBC (Bld) 9.5 % Critically low 20.5-60.0 [facility] Comment on above: Performed By: #### C MP #### [facility] [address] [place] [address] Dr. Spring Nash MANUAL DIFF REQ NO Normal [facility] Comment on above: Performed By: #### C MP #### [facility] [address] [address] [address] Spring Nash MCH (RBC) [Entitic mass] 31.3 pg Normal 25.9-34.0 [facility] Comment on above: Performed By: #### C MP #### [facility] [address] [place] [address] Dr. Spring Nash MCHC (RBC) [Mass/Vol] 34.5 g/dL Normal 29.9-35.2 [facility] Comment on above: Performed By: #### C MP #### [facility] [address] [place] [address] Dr. Spring Nash MCV (RBC) [Entitic vol] 90.7 fL Normal 80.0-94.0 [facility] Comment on above: Performed By: #### C MP #### [facility] [address] [place] [address] Dr. Spring Nash MONO # 0.6 103/ul Normal 0.3-0.8 [facility] Comment on above: Performed By: #### C MP #### [facility] [address] [place] [address] Dr. Spring Nash Monocytes/100 WBC (Bld) 4.8 % Normal 1.7-12.0 [facility] Comment on above: Performed By: #### C MP #### [facility] [address] [place] [address] Dr. Spring Nash NEUT # 10.1 103/ul Critically high 1.4-6.5 [facility] Comment on above: Performed By: #### C MP #### [facility] [address] [place] [address] Dr. Spring Nash Neutrophils/100 WBC (Bld) 81.4 % Critically high 43.0-75.0 [facility] Comment on above: Performed By: #### C MP #### [facility] [address] [address] [address] Spring Nash Platelet mean volume (Bld) [Entitic vol] 12.5 fL Normal 9.5-13.5 [facility] Comment on above: Performed By: #### C MP #### [facility] [address] [address] [address] Spring Nash PLT 212 103/ul Normal 150-450 [facility] Comment on above: Performed By: #### C MP #### [facility] [address] [address] [address] Spring Nash RBC 3.77 106/ul Critically low 4.70-6.10 [facility] Comment on above: Performed By: #### C MP #### [facility] [address] [address] [address] Spring Nash WBC 12.4 103/ul Critically high 4.0-11.0 [facility] Comment on above: Performed By: #### C MP #### [facility] [address] [address] [address] Spring Nash CULTURE BLOODon 10-02-2022 Microscopic examination of blood, culture Culture Observations: NO GROWTH AT 5 DAYS. Normal [facility] Comment on above: Performed By: #### P OCGLUC #### [facility] [address] [place] [address] Dr. Spring Nash Microscopic examination of blood, culture Culture Observations: NO GROWTH AT 5 DAYS. Normal [facility] Comment on above: Performed By: #### P OCGLUC #### [facility] [address] [place] [address] Dr. Spring Nash Covid-19 PCR ([facility])on 09-14 SARS-CoV-2 (COVID-19) RNA HONEY+probe Ql (Unsp spec) Not detected Normal NOT DETECTED [facility] Comment on above: Result Comment: When diagnostic testing is negative, the possibility of a false negative should be considered in the context of a patient's recent exposures and the presence of clinical signs and symptoms consistent with SARS-CoV-2. This test is not yet approved or cleared by the [place] FDA. When there are no FDA-approved or cleared tests available, and other criteria are met, FDA can make tests available under an emergency access mechanism called an Emergency Use Authorization (EUA). The EUA for this test is supported by the [place] of Health and Human Service's declaration that circumstances exist to justify the emergency use of in vitro diagnostics for the detection and/or diagnosis of the virus that causes COVID-19. This EUA will remain in effect for the duration of the COVID-19 declaration justifying emergency of IVDs, unless it is terminated or revoked by the FDA (after which the test may no longer be used). Performed By: #### C MP, HSTROPN, BNP #### [facility] [address] [place] [address] Dr. Spring Nash INFLUENZA A AND B AGon 10-02 INFLUENZA A AG Negative Normal NEGATIVE SEE COMMENT [facility] Comment on above: Performed By: #### C MP, HSTROPN, BNP #### [facility] [address] [place] [address] Dr. Spring Nash INFLUENZA B AG Negative Normal NEGATIVE SEE COMMENT [facility] Comment on above: Performed By: #### C MP, HSTROPN, BNP #### [facility] [address] [place] [address] Dr. Spring Nahs INTERNAL CONTROLS Within Normal Limits Normal Wi thin Normal Limits [facility] Comment on above: Performed By: #### C MP, HSTROPN, BNP #### [facility] Laboratory [address] [place] [address] Dr. Spring Nash LACTATE/LACTIC ACIDon 2021 Lactate [Moles/Vol] 1.5 mmol/L Normal 0.4-1.9 [facility] Comment on above: Performed By: #### C MP, HSTROPN, BNP #### [facility] [address] [place] [address] Dr. Spring Nash PROF 14(COMP METB)on 10-02- 022 Albumin [Mass/Vol] 2.7 g/dL Critically low 3.4-5.0 [facility] Comment on above: Performed By: #### P OCGLUC #### [facility] [address] [place] [address] Dr. Spring Nash Albumin/Globulin [Mass ratio] 0.7 {ratio} Normal [facility] Comment on above: Performed By: #### P OCGLUC #### [facility] [address] [address] [address] Spring Nash ALP [Catalytic activity/Vol] 169 U/L Critically high 46-116 [facility] Comment on above: Performed By: #### P OCGLUC #### [facility] [address] [place] [address] Dr. Spring Nash ALT [Catalytic activity/Vol] 13 U/L Critically low 16-63 [facility] Comment on above: Performed By: #### P OCGLUC #### [facility] [address] [place] [address] Dr. Spring Nash Anion gap [Moles/Vol] 13.7 mmol/L Normal [facility] Comment on above: Performed By: #### P OCGLUC #### [facility] [address] [place] [address] Dr. Spring Nash AST [Catalytic activity/Vol] 24 U/L Normal 15-37 [facility] Comment on above: Performed By: #### P OCGLUC #### [facility] [address] [place] [address] Dr. Spring Nash Bilirubin [Mass/Vol] 0.6 mg/dL Normal 0.2-1.0 [facility] Comment on above: Performed By: #### P OCGLUC #### [facility] [address] [place] [address] Dr. Spring Nash Calcium [Mass/Vol] 8.1 mg/dL Critically low 8.5-10.1 [facility] Comment on above: Performed By: #### P OCGLUC #### [facility] [address] [place] [address] Dr. Spring Nash Chloride [Moles/Vol] 102 mmol/L Normal 98-107 [facility] Comment on above: Performed By: #### P OCGLUC #### [facility] [address] [address] [address] Spring Nash CO2 [Moles/Vol] 25.1 mmol/L Normal 21.0-32.0 [facility] Comment on above: Performed By: #### P OCGLUC #### [facility] [address] [address] [address] Spring Nash Creatinine [Mass/Vol] 1.55 mg/dL Critically high 0.70-1.30 [facility] Comment on above: Performed By: #### P OCGLUC #### [facility] [address] [place] [address] Dr. Spring Nash EGFR-AF COSTA RICAN 58 mL/min/1.73m2 Critically low >=60 [facility] Comment on above: Performed By: #### P OCGLUC #### [facility] [address] [address] [address] Spring Nash EGFR-NON AF [place] R[place] 48 mL/min/1.73m2 Critically low >=60 [facility] Comment on above: Performed By: #### P OCGLUC #### [facility] [address] [place] [address] Dr. Spring Nash Globulin (S) [Mass/Vol] 4.1 g/dL Normal [facility] Comment on above: Performed By: #### P OCGLUC #### [facility] [address] [address] [address] Spring Nash Glucose [Mass/Vol] 421 mg/dL Critically high 74-106 [facility] Comment on above: Performed By: #### P OCGLUC #### [facility] [address] [address] [address] Spring Nash Potassium [Moles/Vol] 4.8 mmol/L Normal 3.5-5.1 [facility] Comment on above: Performed By: #### P OCGLUC #### [facility] [address] [address] [address] Spring Nash Protein [Mass/Vol] 6.8 g/dL Normal 6.4-8.2 [facility] Comment on above: Performed By: #### P OCGLUC #### [facility] [address] [address] [address] Spring Nash Sodium [Moles/Vol] 136 mmol/L Normal 136-145 [facility] Comment on above: Performed By: #### P OCGLUC #### [facility] [address] [address] [address] Spring Nash Urea nitrogen [Mass/Vol] 29.0 mg/dL Critically high 7.0-18.0 [facility] Comment on above: Performed By: #### P OCGLUC #### [facility] [address] [place] [address] Dr. Spring Nash Urea nitrogen/Creatinine [Mass ratio] 18.7 mg/mg Normal [facility] Comment on above: Performed By: #### P OCGLUC #### [facility] [address] [place] [address] Dr. Spring Nash PROTIMEon 10-02-2022 INR Coag (PPP) [Relative time] {INR} Normal [facility] Comment on above: Performed By: #### P OCGLUC #### [facility] [address] [place] [address] Dr. Spring Nash INR GUIDELINES SEE BELOW Normal [facility] Comment on above: Result Comment: SHAWN RED INR: 2.0 - 3.0 CONDITIONS NOT LISTED BELOW 2.5 - 3.5 FOR PROSTHETIC HEART VALVE REPLACEMENT 2.5 - 3.5 RECURRENT THROMBOSIS Performed By: #### P OCGLUC #### [facility] [address] [place] [address] Dr. Spring Nash PT Coag (PPP) [Time] 9.8 s Normal 9.0-11.6 [facility] Comment on above: Performed By: #### P OCGLUC #### [facility] [address] [place] [address] Dr. Spring Nash PTTon 10-02-2022 aPTT Coag (Bld) [Time] 25.9 s Normal 22.3-36.2 [facility] Comment on above: Performed By: #### P OCGLUC #### [facility] [address] [place] [address] Dr. Spring Nash TROPONIN, HIGH SENSITIVITYon 10-02-2022 HSTROP 29.9 pg/mL Normal 4.0-76.1 [facility] Comment on above: Result Comment: CUT- OFF POINTS HAVE BEEN ESTABLISHED BASED ON THE FOURTH UNIVERSAL DEFINITIONS OF MYOCARDIAL INFARCTION. THE UPPER REFERENCE LIMIT (URL) OF TROPONIN, DEFINED THE 99TH PERCENTILE OF cTnI DISTRIBUTION IN A REFERENCE POPULATION, HAS BEEN CONFIRMED THE DECISION THRESHOLD FOR TX DIAGNOSIS. Performed By: #### P OCGLUC #### [facility] [address] [place] [address] Dr. Spring Nash TSHon 10-02-2022 TSH 2.707 uIU/mL Normal 0.358-3.74 0 [facility] Comment on above: Performed By: #### P OCGLUC #### [facility] [address] [place] [address] Dr. Spring Nash CBC AUTO DIFFon 07-31-2022 BASO # 0.0 103/ul Normal 0.0-0.1 [facility] Comment on above: Performed By: #### C MP, HSTROPN, BNP #### [facility] [address] [place] [address] Dr. Spring Nash Basophils/100 WBC (Bld) 0.5 % Normal 0.2-2.0 [facility] Comment on above: Performed By: #### C MP, HSTROPN, BNP #### [facility] [address] [place] [address] Dr. Spring Nash EO # 0.3 103/ul Normal 0.0-0.7 [facility] Comment on above: Performed By: #### C MP, HSTROPN, BNP #### [facility] [address] [place] [address] Dr. Spring Nash Eosinophils/100 WBC (Bld) 4.0 % Normal 0.9-7.0 [facility] Comment on above: Performed By: #### C MP, HSTROPN, BNP #### [facility] [address] [place] [address] Dr. Spring Nash Erythrocyte distribution width (RBC) [Ratio] 12.1 % Normal 11.0-15.0 [facility] Comment on above: Performed By: #### C MP, HSTROPN, BNP #### [facility] [address] [place] [address] Dr. Spring Nash Hematocrit (Bld) [Volume fraction] 37.4 % Critically low 42.0-54.0 [facility] Comment on above: Performed By: #### C MP, HSTROPN, BNP #### [facility] [address] [place] [address] Dr. Spring Nash Hemoglobin (Bld) [Mass/Vol] 12.9 g/dL Critically low 14.0-18.0 [facility] Comment on above: Performed By: #### C MP, HSTROPN, BNP #### [facility] [address] [place] [address] Dr. Spring Nash IG # 0.04 10e3/ul Critically high 0.00-0.03 [facility] Comment on above: Performed By: #### C MP, HSTROPN, BNP #### [facility] [address] [place] [address] Dr. Spring Nash IG % 0.5 % Normal 0.0-0.5 [facility] Comment on above: Performed By: #### C MP, HSTROPN, BNP #### [facility] [address] [place] [address] Dr. Spring Nash LYMPH # 1.7 103/ul Normal 1.2-3.8 [facility] Comment on above: Performed By: #### C MP, HSTROPN, BNP #### [facility] [address] [place] [address] Dr. Spring Nash Lymphocytes/100 WBC (Bld) 21.1 % Normal 20.5-60.0 [facility] Comment on above: Performed By: #### C MP, HSTROPN, BNP #### [facility] [address] [place] [address] Dr. Spring Nash MANUAL DIFF REQ NO Normal [facility] Comment on above: Performed By: #### C MP, HSTROPN, BNP #### [facility] [address] [place] [address] Dr. Spring Nash MCH (RBC) [Entitic mass] 31.0 pg Normal 25.9-34.0 [facility] Comment on above: Performed By: #### C MP, HSTROPN, BNP #### [facility] [address] [place] [address] Dr. Spring Nash MCHC (RBC) [Mass/Vol] 34.5 g/dL Normal 29.9-35.2 [facility] Comment on above: Performed By: #### C MP, HSTROPN, BNP #### [facility] [address] [place] [address] Dr. Spring Nash MCV (RBC) [Entitic vol] 89.9 fL Normal 80.0-94.0 [facility] Comment on above: Performed By: #### C MP, HSTROPN, BNP #### [facility] [address] [place] [address] Dr. Spring Nash MONO # 0.6 103/ul Normal 0.3-0.8 [facility] Comment on above: Performed By: #### C MP, HSTROPN, BNP #### [facility] [address] [place] [address] Dr. Spring Nash Monocytes/100 WBC (Bld) 7.9 % Normal 1.7-12.0 [facility] Comment on above: Performed By: #### C MP, HSTROPN, BNP #### [facility] [address] [place] [address] Dr. Spring Nash NEUT # 5.2 103/ul Normal 1.4-6.5 [facility] Comment on above: Performed By: #### C MP, HSTROPN, BNP #### [facility] [address] [place] [address] Dr. Spring Nash Neutrophils/100 WBC (Bld) 66.0 % Normal 43.0-75.0 [facility] Comment on above: Performed By: #### C MEHREEN HSTROPN, BNP #### [facility] [address] [place] [address] Dr. Spring Nash Platelet mean volume (Bld) [Entitic vol] 11.5 fL Normal 9.5-13.5 [facility] Comment on above: Performed By: #### C MEHREEN HSTROPN, BNP #### [facility] [address] [place] [address] Dr. Spring Nash PLT 220 103/ul Normal 150-450 [facility] Comment on above: Performed By: #### C MEHREEN HSTROPN, BNP #### [facility] [address] [place] [address] Dr. Spring Nash RBC 4.16 106/ul Critically low 4.70-6.10 [facility] Comment on above: Performed By: #### C MEHREEN HSTROPN, BNP #### [facility] [address] [place] [address] Dr. Spring Nash WBC 7.8 103/ul Normal 4.0-11.0 [facility] Comment on above: Performed By: #### C MEHREEN HSTROPN, BNP #### [facility] [address] [place] [address] STROKE HEAD WOon 07-31-20 CT STROKE HEAD WO EXAMINATION: CT STRO KE HEAD WO HISTORY: Heaviness of the right arm. TECHNIQUE: Axial CT scans through the head were obtained without IV contrast administration. Dose reduction techniques were achieved by using: automated exposure control and/or adjustment of mA and /or kV according to patient size and/or use of iterative reconstruction technique. COMPARISON: 12/14/2019. FINDINGS: A small area of encephalomalacia in the posterolateral inferior aspect of the left temporal lobe is likely due to an old infarct. The brainstem appears normal. A small old infarct each in the posterior aspects of the right and left cerebellar hemispheres is shown. The ventricular system is normal for the patient's age. No area of abnormal mass-effect or edema or intracranial hemorrhage. The visualized orbits show no gross mass. The visualized paranasal sinuses show no air-fluid level. Mastoid air cells are clear. IMPRESSION: No acute intracranial process. 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 Electronically authenticated by: LISA DURAN Date: 2022-07-31 21:18 Normal [facility] Covid-19 PCR (CVDTBH)on 07-14 SARS-CoV-2 (COVID-19) RNA HONEY+probe Ql (Unsp spec) Not detected Normal NOT DETECTED [facility] Comment on above: Result Comment: When diagnostic testing is negative, the possibility of a false negative should be considered in the context of a patient's recent exposures and the presence of clinical signs and symptoms consistent with SARS-CoV-2. This test is not yet approved or cleared by the [place] FDA. When there are no FDA-approved or cleared tests available, and other criteria are met, FDA can make tests available under an emergency access mechanism called an Emergency Use Authorization (EUA). The EUA for this test is supported by the [place] of Health and Human Service's declaration that circumstances exist to justify the emergency use of in vitro diagnostics for the detection and/or diagnosis of the virus that causes COVID-19. This EUA will remain in effect for the duration of the COVID-19 declaration justifying emergency of IVDs, unless it is terminated or revoked by the FDA (after which the test may no longer be used). Performed By: #### C MP, HSTROPN, BNP #### [facility] [address] [place] [address] Dr. Spring Nash PROF 14(COMP METB)on 022 Albumin [Mass/Vol] 3.1 g/dL Critically low 3.4-5.0 [facility] Comment on above: Performed By: #### P OCGLUC #### [facility] [address] [place] [address] Dr. Spring Nash Albumin/Globulin [Mass ratio] 0.9 {ratio} Normal [facility] Comment on above: Performed By: #### P OCGLUC #### [facility] [address] [place] [address] Dr. Spring Nash ALP [Catalytic activity/Vol] 124 U/L Critically high 46-116 [facility] Comment on above: Performed By: #### P OCGLUC #### [facility] [address] [address] [address] Spring Nash ALT [Catalytic activity/Vol] 18 U/L Normal 16-63 [facility] Comment on above: Performed By: #### P OCGLUC #### [facility] [address] [address] [address] Spring Nash Anion gap [Moles/Vol] 9.1 mmol/L Normal [facility] Comment on above: Performed By: #### P OCGLUC #### [facility] [address] [address] [address] Spring Nash AST [Catalytic activity/Vol] 11 U/L Critically low 15-37 [facility] Comment on above: Performed By: #### P OCGLUC #### [facility] [address] [address] [address] Spring Nash Bilirubin [Mass/Vol] 0.3 mg/dL Normal 0.2-1.0 [facility] Comment on above: Performed By: #### P OCGLUC #### [facility] [address] [address] [address] Spring Nash Calcium [Mass/Vol] 8.9 mg/dL Normal 8.5-10.1 [facility] Comment on above: Performed By: #### P OCGLUC #### [facility] [address] [address] [address] Spring Nash Chloride [Moles/Vol] 102 mmol/L Normal 98-107 [facility] Comment on above: Performed By: #### P OCGLUC #### [facility] [address] [address] [address] Spring Nash CO2 [Moles/Vol] 31.1 mmol/L Normal 21.0-32.0 [facility] Comment on above: Performed By: #### P OCGLUC #### [facility] [address] [address] [address] Spring Nash Creatinine [Mass/Vol] 1.58 mg/dL Critically high 0.70-1.30 [facility] Comment on above: Performed By: #### P OCGLUC #### [facility] [address] [address] [address] Spring Nash EGFR-AF CO[place] RICAN 56 mL/min/1.73m2 Critically low >=60 [facility] Comment on above: Performed By: #### P OCGLUC #### [facility] [address] [address] [address] Spring Nash EGFR-NON AF [place] R[place] 46 mL/min/1.73m2 Critically low >=60 [facility] Comment on above: Performed By: #### P OCGLUC #### [facility] [address] [address] [address] Spring Nash Globulin (S) [Mass/Vol] 3.4 g/dL Normal [facility] Comment on above: Performed By: #### P OCGLUC #### [facility] [address] [address] [address] Spring Nash Glucose [Mass/Vol] 218 mg/dL Critically high 74-106 [facility] Comment on above: Performed By: #### P OCGLUC #### [facility] [address] [address] [address] Spring Nash Potassium [Moles/Vol] 4.2 mmol/L Normal 3.5-5.1 [facility] Comment on above: Performed By: #### P OCGLUC #### [facility] [address] [address] [address] Spring Nash Protein [Mass/Vol] 6.5 g/dL Normal 6.4-8.2 [facility] Comment on above: Performed By: #### P OCGLUC #### [facility] [address] [address] [address] Spring Nash Sodium [Moles/Vol] 138 mmol/L Normal 136-145 [facility] Comment on above: Performed By: #### P OCGLUC #### [facility] [address] [address] [address] Spring Nash Urea nitrogen [Mass/Vol] 22.0 mg/dL Critically high 7.0-18.0 [facility] Comment on above: Performed By: #### P OCGLUC #### [facility] [address] [address] [address] Spring Nsah Urea nitrogen/Creatinine [Mass ratio] 13.9 mg/mg Normal [facility] Comment on above: Performed By: #### P OCGLUC #### [facility] [address] [address] [address] Spring Nash PROTIMEon 07-31-2022 INR Coag (PPP) [Relative time] {INR} Normal [facility] Comment on above: Performed By: #### C MP #### [facility] [address] [place] [address] Dr. Spring Nash INR GUIDELINES SEE BELOW Normal [facility] Comment on above: Result Comment: SHAWN RED INR: 2.0 - 3.0 CONDITIONS NOT LISTED BELOW 2.5 - 3.5 FOR PROSTHETIC HEART VALVE REPLACEMENT 2.5 - 3.5 RECURRENT THROMBOSIS Performed By: #### C MP #### [facility] [address] [place] [address] Dr. Spring Nash PT Coag (PPP) [Time] 9.7 s Normal 9.0-11.6 [facility] Comment on above: Performed By: #### C MP #### [facility] [address] [place] [address] Dr. Spring Nash PTTon 07-31-2022 aPTT Coag (Bld) [Time] 23.0 s Normal 22.3-36.2 [facility] Comment on above: Performed By: #### C MP #### [facility] [address] [place] [address] Dr. Spring Nash TROPONIN, HIGH SENSITIVITYon 07-31-2022 HSTROP 36.6 pg/mL Normal 4.0-76.1 [facility] Comment on above: Result Comment: CUT- OFF POINTS HAVE BEEN ESTABLISHED BASED ON THE FOURTH UNIVERSAL DEFINITIONS OF MYOCARDIAL INFARCTION. THE UPPER REFERENCE LIMIT (URL) OF TROPONIN, DEFINED THE 99TH PERCENTILE OF cTnI DISTRIBUTION IN A REFERENCE POPULATION, HAS BEEN CONFIRMED THE DECISION THRESHOLD FOR TX DIAGNOSIS. Performed By: #### P OCGLUC #### [facility] [address] [address] [address] Spring Nash TSHon 07-31-2022 TSH 2.334 uIU/mL Normal 0.358-3.74 0 [facility] Comment on above: Performed By: #### P OCGLUC #### [facility] [address] [address] [address] Spring Nash XR CHEST 1 Von 07-31-2022 XR CHEST 1 V EXAM: XR CHEST 1 V a t 2022 hours HISTORY: CHEST PAIN, UNSPECIFIED COMPARISON: 05/07/2021 TECHNIQUE: AP upright portable chest x-ray FINDINGS: The heart is not enlarged and the vasculature is not distended. No acute infiltrate, effusion or pneumothorax is identified. The osseous structures are grossly intact. The previously identified PICC line on the right side has been removed. IMPRESSION: No acute infiltrate or evidence of cardiac decompensation. Except for removal of the right-sided PICC line, the overall appearance of the chest is unchanged. Electronically authenticated by: CLIVE HOLLAND Date: 2022-07-31 20:54 Normal [facility] A1C HEMOGLOBINon 05-16-2022 HbA1c (Bld) [Mass fraction] 8.6 % [place] Other Glucose - FINGER STICKon Glucose [Mass/Vol] 109 mg/dL [place] Other HbA1c (Bld) [Mass fraction]o n 05-16-2022 A1C HEMOGLOBIN [facility] [employer] Other Basophils Auto (Bld) [#/Vol] Ordered By: Suzan Bennett on 04-21-2022 Basophils (Bld) [#/Vol] 0.1 10*3/uL 0.0-0.2 [facility] Basophils/100 WBC Auto (Bld) Ordered By: Suzan Bennett on 04-21-2022 Basophils/100 WBC (Bld) 0.6 % [facility] Blood hemoglobin measurement (mass/volume)Ordered By: Suzan Bennett on 04-21-2022 Hemoglobin (Bld) [Mass/Vol] 11.7 g/dL 13.0-17.0 [facility] Blood leukocytes automated c ount (number/volume)Ordered By: Suzan Bennett on 04-21-2022 WBC (Bld) [#/Vol] 9.0 10*3/uL 4.5-11.0 [facility] Creatinine and Glomerular fi ltration rate.predicted panel (S/P/Bld)Ordered By: Suzan Bennett on 04-21-2022 Creatinine [Mass/Vol] 1.75 mg/dL 0.64-1.27 [facility] Eosinophils Auto (Bld) [#/Vo l]Ordered By: Suzan Bennett on 04-21-2022 Eosinophils (Bld) [#/Vol] 0.3 10*3/uL 0.0-0.45 [facility] Eosinophils/100 WBC Auto (Bl d)Ordered By: Suzan Bennett on 04-21-2022 Eosinophils/100 WBC (Bld) 3.0 % [facility] Erythrocyte distribution wid th Auto (RBC) [Ratio]Ordered By: Suzan Bennett on 04-21-2022 Erythrocyte distribution width (RBC) [Ratio] 13.2 % 12.0-14.8 [facility] Estimated glomerular filtrat ion rate (GFR) non- AmericanOrdered By: Suzan Bennett on 04-21-2022 GFR/1.73 sq M.predicted among non-blacks MDRD (S/P/Bld) [Vol rate/Area] 41 mL/Min [facility] Hematocrit Auto (Bld) [Volum e fraction]Ordered By: Suzan Bennett on 04-21-2022 Hematocrit (Bld) [Volume fraction] 34.0 % 38.8-50.0 [facility] - Chemistry and C hemistry - challengeOrdered By: Sinan Holly on 04-21-2022 Natriuretic peptide B (Bld) [Mass/Vol] 51.0 pg/mL 5-100 [facility] - Hematology and Cell countsOrdered By: Suzan Bennett on 04-21-2022 Nucleated RBC/100 WBC (Bld) [Ratio] 0.0 % 0-0.5 [facility] Lymphocytes Auto (Bld) [#/Vo l]Ordered By: Suzan Bennett on 04-21-2022 Lymphocytes (Bld) [#/Vol] 1.6 10*3/uL 1.00-4.8 [facility] Lymphocytes/100 WBC Auto (Bl d)Ordered By: Suzan Bennett on 04-21-2022 Lymphocytes/100 WBC (Bld) 17.4 % [facility] MCH Auto (RBC) [Entitic mass ]Ordered By: Suzan Bennett on 04-21-2022 MCH (RBC) [Entitic mass] 31.2 pg 27.5-35.2 [facility] MCHC Auto (RBC) [Mass/Vol]Or dered By: Suzan Bennett on 04-21-2022 MCHC (RBC) [Mass/Vol] 34.3 g/dL 32.5-35.6 [facility] MCV Auto (RBC) [Entitic vol] Ordered By: Suzan Bennett on 04-21-2022 MCV (RBC) [Entitic vol] 90.8 fL 83.5-101 [facility] Monocytes Auto (Bld) [#/Vol] Ordered By: Suzan Bennett on 04-21-2022 Monocytes (Bld) [#/Vol] 0.6 10*3/uL 0.0-0.8 [facility] Monocytes/100 WBC Auto (Bld) Ordered By: Suzan Bennett on 04-21-2022 Monocytes/100 WBC (Bld) 6.9 % [facility] Neutrophils Auto (Bld) [#/Vo l]Ordered By: Suzan Bennett on 04-21-2022 Neutrophils (Bld) [#/Vol] 6.5 10*3/uL 1.8-7.7 [facility] Neutrophils/100 WBC Auto (Bl d)Ordered By: Suzan Bennett on 04-21-2022 Neutrophils/100 WBC (Bld) 72.1 % [facility] No Panel InformationOrdered By: Suzan Bennett on 04-21-2022 Estimated GFR () 50 mL/Min [facility] Comment on above: GFR estimated refere nce range: According to KDOQI guidelines, <60 ml/min/1.73m2 is sufficient to diagnose a patient with chronic kidney disease. Pharmacy Creatinine Clearance (Chem 57.15 [facility] Platelet mean volume Auto (B ld) [Entitic vol]Ordered By: Suzan Bennett on 04-21-2022 Platelet mean volume (Bld) [Entitic vol] 9.9 fL 6.6-10.1 [facility] Platelets Auto (Bld) [#/Vol] Ordered By: Suzan Bennett on 04-21-2022 Platelets (Bld) [#/Vol] 202 10*3/uL 150-450 [facility] RBC Auto (Bld) [#/Vol]Ordere d By: Suzan Bennett on 04-21-2022 RBC (Bld) [#/Vol] 3.75 10*6/uL 3.90-5.60 [facility] Serum or plasma calcium regi urement (mass/volume)Ordered By: Suzan Bennett on 04-21-2022 Calcium [Mass/Vol] 9.0 mg/dL 8.2-10.2 [facility] Serum or plasma chloride taryn surement (moles/volume)Ordered By: Suzan Bennett on 04-21-2022 Chloride [Moles/Vol] 99 mmol/L 95-114 [facility] Serum or plasma glucose regi urement (mass/volume)Ordered By: Suzan Bennett on 04-21-2022 Glucose [Mass/Vol] 215 mg/dL 70-100 [facility] Comment on above: ADA recommended refe rence range Random Glucose Reference Range is dependent on time and content of last meal. Glucose of more than 200 mg/dL in a nonstressed, ambulatory subject supports the diagnosis of Diabetes Mellitus. Serum or plasma potassium me asurement (moles/volume)Ordered By: Suzan Bennett on 04-21-2022 Potassium [Moles/Vol] 4.5 mmol/L 3.5-5.1 [facility] Serum or plasma sodium measu rement (moles/volume)Ordered By: Suzan Bennett on 04-21-2022 Sodium [Moles/Vol] 138 mmol/L 136-146 [facility] Serum or plasma total carbon dioxide measurement (moles/volume)Ordered By: Suzan Bennett on 04-21-2022 CO2 [Moles/Vol] 28.5 mmol/L 22.0-30.0 [facility] Serum or plasma urea nitroge n measurement (mass/volume)Ordered By: Suzan Bennett on 04-21-2022 Urea nitrogen [Mass/Vol] 42 mg/dL 9-23 [facility] Troponin I.cardiac [Mass/vol ume] in Serum or Plasma by High sensitivity methodOrdered By: Sinan Holly on 04-21-2022 Troponin I.cardiac High sensitivity method [Mass/Vol] 18 pg/mL 0-20 [facility] INTRAVITREAL INJECTION, PHAR MACOLOGIC AGENT - OU - BOTH EYESon 03-21-2022 Time Out The date was 03/21/2022. The time was 4:11 PM. Confirmed correct patient, procedure, site, and patient consented. Anesthesia Right Eye Subconjunctival anesthesia was used. Anesthetic medications included Lidocaine 2%. Left Eye Subconjunctival anesthesia was used. Anesthetic medications included Lidocaine 2%. Procedure Right Eye Preparation included 10% betadine to eyelids. A 30 gauge needle was used. Injection Medications: 1.25 mg bevacizumab 1.25MG/0.05 mL Route: Intravitreal, Site: Right Eye Left Eye Preparation included 10% betadine to eyelids. A 30 gauge needle was used. Injection Medications: 1.25 mg bevacizumab 1.25MG/0.05 mL Route: Intravitreal, Site: Left Eye Post-op Right Eye Post injection exam found visual acuity of at least counting fingers. Post injection medications were not given. There were no complications. Left Eye Post injection exam found visual acuity of at least counting fingers. Post injection medications were not given. There were no complications. General Details The patient tolerated the procedure well. The patient received written and verbal post procedure care education. Notes [id number] [facility] Radiology Study observation (narrative) [facility] OCT, RETINA - OU - BOTH EYES on 03-21-2022 [facility] Radiology Study observation (narrative) [facility] Office Visit (Cardiology)on 03-07-2022 Follow-up visit Diagnoses/Problems Assessed CAD (coronary artery disease) (414.00) (I25.10) Ischemic cardiomyopathy (414.8) (I25.5) Hypertension (401.9) (I10) Mixed hyperlipidemia (272.2) (E78.2) Current every day smoker (305.1) (F17.200) 1/2 ppd Class 2 obesity with body mass index (BMI) of 36.0 to 36.9 in adult (278.00,V85.36) (E66.9,Z68.36) Orders CAD (coronary artery disease) Renew: Clopidogrel Bisulfate 75 MG Oral Tablet; Take one tablet daily Class 2 obesity with body mass index (BMI) of 36.0 to 36.9 in adult Healthy Weight Tips; Status:Complete; Done: [id number] Hypertension, Ischemic cardiomyopathy Renew: Bumetanide 1 MG Oral Tablet; TAKE 1 TABLET DAILY Ischemic cardiomyopathy Basic Metabolic Panel; Status:Active; Requested for:15Mar2022; SocHx: Current every day smoker You need to stop smoking. Though it is not easy, more than half of all adult smokers have quit. We encourage you to write down all the reasons you should quit smoking and set a quit date for yourself. Ask us how we can help. You may also call 7-092-GBCONOW for free resources and assistance.; Status:Complete; Done: [id number] Tobacco Use Screening; Status:Complete; Done: [id number] Unlinked Stop: Potassium Chloride Ria ER 20 MEQ Oral Tablet Extended Release Patient Instructions Please bring all medicines, vitamins, and herbal supplements with you when you come to the office. Prescriptions will not be filled unless you are compliant with your follow up appointments or have a follow up appointment scheduled as per instruction of your physician. Refills should be requested at the time of your visit. PLAN: Through informed decision making process incorporating patients unique circumstances, the following treatment plan will be initiated: 1. Prescription drug management of cardiovascular medication for efficacy, adherence to treatment, side effect assessment and polypharmacy. Current treatment clinically warranted and to continue with following modifications: - Stop potassium - Reduce bumex to once a day 2. Chem6 next week 3. Return for follow-up; in the interim, contact the office if new symptoms arise. 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 Avoid saturated fats, trans fats and excess sodium and sugar. - Get at least 150 minutes per week of moderate-intensity aerobic activity. Brisk walking (at least 2.5 miles per hour), water aerobics, gardening, biking slower than 10 miles per hours. Any amount of movement is better than none. The simplest way to get moving and improve your health is to start walking. It's free, easy and can be done just about anywhere, even in place. Even if you have been sedentary for years, today is the day you can begin to make healthy changes in your life. Chief Complaint I am feeling ok CHANDLER MINOR is being seen for a week follow-up of hypertension and a new medication. Patient was last evaluated in clinic myself February 14, 2022. Changes to medical regimen at that time increased coreg 25mg BID, added cozaar 50mg daily. Repeat labs K+ 5.1, Cr. 1.8; there was task for medication changes but has not been completed. Patient has been compliant with changes, denies any side effects. Very rare dizziness. Chest pain 'still there, maybe a little bit better' Still using NTG (4 times since last visit) Had nitropatch previously without benefit. History of Present Illness The patient presents for follow-up of essential hypertension. The patient states he has been doing well with his blood pressure control since the last visit. Comorbid Illnesses: coronary artery disease. Symptoms: denies impaired vision, denies dyspnea, denies chest pain, denies intermittent leg claudication and denies lower extremity edema. Associated symptoms include no headache. Home monitoring: The patient checks his blood pressure sporadically. Medications: the patient is adherent with his medication regimen. He denies medication side effects. The patient is due for a serum creatinine. Surgical History Problems History of Complete colonoscopy History of Coronary artery stent placement History of Lower extremity amputation History of Throat surgery Current Meds Medication NameInstruction Acetaminophen 500 MG Oral TabletTAKE 1 TABLET EVERY 4 TO 6 HOURS NEEDED. Aspirin 81 MG Oral Tablet ChewableTake 1 tablet daily Atorvastatin Calcium 80 MG Oral TabletTAKE 1 TABLET AT BEDTIME. Bumetanide 1 MG Oral TabletTAKE 1 TABLET TWICE DAILY. buPROPion HCl ER (XL) 300 MG Oral Tablet Extended Release 24 HourTAKE 1 TABLET DAILY. Carvedilol 25 MG Oral TabletTAKE 1 TABLET TWICE DAILY. Citalopram Hydrobromide 20 MG Oral TabletTAKE 1 TABLET DAILY. Clopidogrel Bisulfate 75 MG Oral TabletTAKE 1 TABLET DAILY. Cyclobenzaprine HCl - 5 MG Oral TabletTAKE 1 TABLET 3 TIMES DAILY NEEDED. Isosorbide Mon (more content not included)... Normal [employer] Tobacco Screening.on 022 Fall risk assessment a) No falls within the last year -[facility] DO Work Phone: Tobacco use status CP a) Yes [facility] DO Work Phone: Tobacco Screening. Yes -[facility] DO Work Phone: Office Visit (Cardiology)on 02-14-2022 Follow-up visit Diagnoses/Problems Assessed CAD (coronary artery disease) (414.00) (I25.10) Ischemic cardiomyopathy (414.8) (I25.5) Hypertension (401.9) (I10) Mixed hyperlipidemia (272.2) (E78.2) Diabetes mellitus (250.00) (E11.9) Current every day smoker (305.1) (F17.200) 1/2 ppd Chantix - nightmares Patches - not really beneficial Class 2 obesity with body mass index (BMI) of 36.0 to 36.9 in adult (278.00,V85.36) (E66.9,Z68.36) Moderate episode of recurrent major depressive disorder (296.32) (F33.1) Orders CAD (coronary artery disease), Diabetes mellitus, Hypertension Renew: Carvedilol 25 MG Oral Tablet; TAKE 1 TABLET TWICE DAILY Class 2 obesity with body mass index (BMI) of 36.0 to 36.9 in adult Healthy Weight Tips; Status:Complete; Done: 14Feb2022 Hypertension Start: Losartan Potassium 50 MG Oral Tablet (Cozaar); TAKE 1 TABLET DAILY Basic Metabolic Panel; Status:Active; Requested for:21Feb2022; SocHx: Current every day smoker Tobacco Use Screening; Status:Complete; Done: 14Feb2022 Patient Instructions Please bring all medicines, vitamins, and herbal supplements with you when you come to the office. Prescriptions will not be filled unless you are compliant with your follow up appointments or have a follow up appointment scheduled as per instruction of your physician. Refills should be requested at the time of your visit. Fall prevention education given PLAN: Through informed decision making process incorporating patients unique circumstances, the following treatment plan will be initiated: 1. Prescription drug management of cardiovascular medication for efficacy, adherence to treatment, side effect assessment and polypharmacy. Current treatment clinically warranted and to continue with following modifications: - Increase coreg 25mg twice daily - Begin Cozaar 50mg po daily 2. Chem6 in one week 3. Return for follow-up; in the interim, contact the office if new symptoms arise. 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 Avoid saturated fats, trans fats and excess sodium and sugar. - Get at least 150 minutes per week of moderate-intensity aerobic activity. Brisk walking (at least 2.5 miles per hour), water aerobics, gardening, biking slower than 10 miles per hours. Any amount of movement is better than none. The simplest way to get moving and improve your health is to start walking. It's free, easy and can be done just about anywhere, even in place. Even if you have been sedentary for years, today is the day you can begin to make healthy changes in your life. Chief Complaint I still have the chest pain CHANDLER MINOR is being seen for a 4 week follow-up of coronary artery disease and cardiomyopathy. 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 Last evaluated in clinic by Dr. Sarmiento January 2022. At that time, isosorbide was increased. He was to start Entresto. Patient reports only picking up one script from pharmacy, there is a note that Entresto was declined due to medical necessity. Continues to report QOD 'chest pain'. NTG - has used 12 tablets (sometimes requires 2 to relieve) No orthopnea/PND +PRAVEENA but can't tolerate machine Depression screening with PHQ-9 score @ 8 -Has history of depression and is treated by PCP on SSRI and wellbutrin Continued every day tobacco use. Have reviewed the negative cardiovascular impact of nicotine. Continues to decline pharmacological assistance. History of Present Illness The patient states he has been generally stable since the last visit. Comorbid Illnesses: diabetes mellitus, hypertension and hyperlipidemia. Symptoms: stable chest pain at rest, stable exertional chest pain, denies dyspnea, denies fatigue, denies exercise intolerance, denies palpitations, denies edema, denies orthopnea, denies dizziness and denies orthostatic dizziness. Associated symptoms: no syncope. His symptoms do not limit his activities. Disease Monitoring: Medications: the patient is adherent with his medication regimen. He denies medication side effects. Surgical History Problems History of Complete colonoscopy History of Coronary artery stent placement History of Lower extremity amputation History of Throat surgery Current Meds Medication NameInstruction Acetaminophen 500 MG Oral TabletTAKE 1 TABLET EVERY 4 TO 6 HOURS NEEDED. Aspirin 81 MG Oral Tablet ChewableTake 1 tablet daily Atorvastatin Calcium 80 MG Oral TabletTAKE 1 TABLET AT BEDTIME. Bumetanide 1 MG Oral TabletTAKE 1 TABLET TWICE DAILY. buPROPion HCl ER (XL) 300 MG Oral Tablet Extended Release 24 HourTAKE 1 TABLET DAILY. Carvedilol 12.5 MG Oral TabletTAKE 1 TABLET TWICE DAILY. Citalopram Hydrobromide 20 MG Oral TabletTAKE 1 TABLET DAILY. Clopidogrel Bisulfate 75 MG Oral TabletTAKE 1 TABLET DAILY. Cyclobenzaprine HCl - 5 MG Oral TabletTAKE 1 TABLET 3 TIMES DAILY NEEDED. (more content not included)... Normal [employer] Tobacco Screening.on 022 Adult depression screening assessment No [facility] DO Work Phone: Adult depression screening assessment Yes [facility] 250 DO Work Phone: Fall risk assessment b) One or more fall s in the last year [facility] [facility] 250 DO Work Phone: Tobacco use status [facility] a) Yes [facility] 250 DO Work Phone: Tobacco Screening. Yes [facility] 250 DO Work Phone: Tobacco Screening. 1-Several days Counts include 234 beds at the [facility] 250 DO Work Phone: Tobacco Screening. 0-Not at all [facility] 250 DO Work Phone: Tobacco Screening. 2-More than half the days [facility] 250 DO Work Phone: Tobacco Screening. Somewhat Difficult [facility] 250 DO Work Phone: Glucose - FINGER [employer]on Glucose [Mass/Vol] 194 mg/dL [facility] [employer] Other Tobacco Screening.on 022 Adult depression screening assessment No [facility] 250 DO Work Phone: Adult depression screening assessment Yes [facility] 250 DO Work Phone: [phone] Tobacco use status CP a) Yes [facility] 250 DO Work Phone: [phone] Tobacco Screening. Yes [facility] 250 DO Work Phone: Tobacco Screening. 3-Nearly every day [facility] 250 DO Work Phone: Tobacco Screening. 0-Not at all [facility] [facility] 250 DO Work Phone: Tobacco Screening. 2-More than half the days [facility] 250 DO Work Phone: Tobacco Screening. 1-Several days Counts include 234 beds at the [facility] DO Work Phone: Tobacco Screening. Very Difficult Counts include 234 beds at the [facility] DO Work Phone: Basophils Auto (Bld) [#/Vol] Ordered By: Jonn Wallace on 01-12-2022 Basophils (Bld) [#/Vol] 0.0 10*3/uL 0.0-0.2 [facility] Basophils/100 WBC Auto (Bld) Ordered By: Jonn Wallace on 01-12-2022 Basophils/100 WBC (Bld) 0.6 % [facility] Blood hemoglobin measurement (mass/volume)Ordered By: Jonn Wallace on 01-12-2022 Hemoglobin (Bld) [Mass/Vol] 11.5 g/dL 13.0-17.0 [facility] Blood leukocytes automated c ount (number/volume)Ordered By: Jonn Wallace on 01-12-2022 WBC (Bld) [#/Vol] 8.4 10*3/uL 4.5-11.0 [facility] Creatinine and Glomerular fi ltration rate.predicted panel (S/P/Bld)Ordered By: Jonn Wallace on 01-12-2022 Creatinine [Mass/Vol] 1.21 mg/dL 0.64-1.27 [facility] Eosinophils Auto (Bld) [#/Vo l]Ordered By: Jonn Wallace on 01-12-2022 Eosinophils (Bld) [#/Vol] 0.5 10*3/uL 0.0-0.45 [facility] Eosinophils/100 WBC Auto (Bl d)Ordered By: Jonn Wallace on 01-12-2022 Eosinophils/100 WBC (Bld) 6.3 % [facility] Erythrocyte distribution wid th Auto (RBC) [Ratio]Ordered By: Jnon Wallace on 01-12-2022 Erythrocyte distribution width (RBC) [Ratio] 14.2 % 12.0-14.8 [facility] Estimated glomerular filtrat ion rate (GFR) non- AmericanOrdered By: Jonn Wallace on 01-12-2022 GFR/1.73 sq M.predicted among non-blacks MDRD (S/P/Bld) [Vol rate/Area] > 60 mL/Min [facility] Glucose Glucometer (BldC) [M ass/Vol]Ordered By: Jonn Wallace on 01-12-2022 Glucose [Mass/Vol] 161 mg/dL [facility] Comment on above: Random Glucose Refer ence Range is dependent on time and content of last meal. Glucose of more than 200 mg/dL in a nonstressed, ambulatory subject supports the diagnosis of Diabetes Mellitus. Hematocrit Auto (Bld) [Volum e fraction]Ordered By: Jonn Wallace on 01-12-2022 Hematocrit (Bld) [Volume fraction] 34.0 % 38.8-50.0 [facility] Laboratory - Chemistry and C hemistry - challengeOrdered By: Jonn Wallace on 01-12-2022 Magnesium [Mass/Vol] 1.9 mg/dL 1.6-2.6 [facility] Laboratory - Hematology and Cell countsOrdered By: Jonn Wallace on 01-12-2022 Nucleated RBC/100 WBC (Bld) [Ratio] 0.1 % 0-0.5 [facility] Lymphocytes Auto (Bld) [#/Vo l]Ordered By: Jonn Wallace on 01-12-2022 Lymphocytes (Bld) [#/Vol] 1.6 10*3/uL 1.00-4.8 [facility] Lymphocytes/100 WBC Auto (Bl d)Ordered By: Jonn Wallace on 01-12-2022 Lymphocytes/100 WBC (Bld) 19.6 % [facility] MCH Auto (RBC) [Entitic mass ]Ordered By: Jonn Wallace on 01-12-2022 MCH (RBC) [Entitic mass] 30.9 pg 27.5-35.2 [facility] MCHC Auto (RBC) [Mass/Vol]Or dered By: Jonn Wallace on 01-12-2022 MCHC (RBC) [Mass/Vol] 33.9 g/dL 32.5-35.6 [facility] MCV Auto (RBC) [Entitic vol] Ordered By: Jonn Wallace on 01-12-2022 MCV (RBC) [Entitic vol] 91.2 fL 83.5-101 F [facility] Monocytes Auto (Bld) [#/Vol] Ordered By: Jonn Wallace on 01-12-2022 Monocytes (Bld) [#/Vol] 0.6 10*3/uL 0.0-0.8 [facility] Monocytes/100 WBC Auto (Bld) Ordered By: Jonn Wallace on 01-12-2022 Monocytes/100 WBC (Bld) 7.2 % F [facility] Neutrophils Auto (Bld) [#/Vo l]Ordered By: Jonn Wallaec on 04-01-2022 Neutrophils (Bld) [#/Vol] 5.5 10*3/uL 1.8-7.7 [facility] Neutrophils/100 WBC Auto (Bl d)Ordered By: Jonn Wallace on 01-12-2022 Neutrophils/100 WBC (Bld) 66.3 % [facility] No Panel InformationOrdered By: Jonn Wallace on 01-12-2022 Estimated GFR () > 60 mL/Min [facility] Comment on above: GFR estimated refere nce range: According to KDOQI guidelines, <60 ml/min/1.73m2 is sufficient to diagnose a patient with chronic kidney disease. Pharmacy Creatinine Clearance (Chem 82.85 [facility] Platelet mean volume Auto (B ld) [Entitic vol]Ordered By: Jonn Wallace on 01-12-2022 Platelet mean volume (Bld) [Entitic vol] 9.8 fL 6.6-10.1 [facility] Platelets Auto (Bld) [#/Vol] Ordered By: Jonn Wallace on 01-12-2022 Platelets (Bld) [#/Vol] 202 10*3/uL 150-450 [facility] RBC Auto (Bld) [#/Vol]Ordere d By: Jonn Wallace on 01-12-2022 RBC (Bld) [#/Vol] 3.73 10*6/uL 3.90-5.60 [facility] Serum or plasma calcium regi urement (mass/volume)Ordered By: Jonn Wallace on 01-12-2022 Calcium [Mass/Vol] 8.8 mg/dL 8.2-10.2 [facility] Serum or plasma chloride taryn surement (moles/volume)Ordered By: Jonn Wallace on 01-12-2022 Chloride [Moles/Vol] 103 mmol/L 95-114 [facility] Serum or plasma glucose regi urement (mass/volume)Ordered By: Jonn Wallace on 01-12-2022 Glucose [Mass/Vol] 69 mg/dL 70-100 [facility] Comment on above: Delta: 314 on -[id number] recommended reference rangeRandom Glucose Reference Range is dependent on time and content of last meal. Glucose of more than 200 mg/dL in a nonstressed, ambulatory subject supports the diagnosis of Diabetes Mellitus. Serum or plasma potassium me asurement (moles/volume)Ordered By: Jonn Wallace on 01-12-2022 Potassium [Moles/Vol] 4.2 mmol/L 3.5-5.1 [facility] Serum or plasma sodium measu rement (moles/volume)Ordered By: Jonn Wallace on 01-12-2022 Sodium [Moles/Vol] 137 mmol/L 136-146 [facility] Serum or plasma total carbon dioxide measurement (moles/volume)Ordered By: Jonn Wallace on 01-12-2022 CO2 [Moles/Vol] 26.2 mmol/L 22.0-30.0 [facility] Serum or plasma urea nitroge n measurement (mass/volume)Ordered By: Jonn Wallace on 01-12-2022 Urea nitrogen [Mass/Vol] 26 mg/dL 9-23 [facility] Activated partial thrombopla stin time (aPTT) in platelet poor plasma by coagulation aOrdered By: Jonn Wallace on 01-11-2022 aPTT Coag (PPP) [Time] 27.5 s 25.1-36.5 [facility] Albumin [Mass/volume] in Ser um or PlasmaOrdered By: Jonn Wallace on 01-11-2022 Albumin [Mass/Vol] 2.7 g/dL 3.2-5.5 [facility] Cholesterol [Mass/volume] in Serum or PlasmaOrdered By: Jonn Wallace on 01-11-2022 Cholesterol [Mass/Vol] 182 mg/dL 140-200 [facility] Comment on above: Chol less than 200 m g/dl low riskChol 201-239 mg/dl borderline riskChol 240 mg/dl and greater high risk Cholesterol in LDL Calc [Mas s/Vol]Ordered By: Jonn Wallace on 01-11-2022 Cholesterol in LDL [Mass/Vol] 114 mg/dL 0-100 [facility] Comment on above: LDL ATP III CLASSIFI CATIONLDL less than 100 mg/dL OptimalLDL 100-129 mg/dL Near or above optimalLDL 130-159 mg/dL Borderline highLDL 160-189 mg/dL HighLDL greater than 189 mg/dL Very high Cholesterol in VLDL Calc [Ma ss/Vol]Ordered By: Jonn Wallace on 01-11-2022 Cholesterol in VLDL [Mass/Vol] 38 mg/dL [facility] Globulin Calc (S) [Mass/Vol] Ordered By: Jonn Wallace on 01-11-2022 Globulin (S) [Mass/Vol] 2.4 g/dL F [facility] Laboratory - CoagulationOrde red By: Jonn Wallace on 01-11-2022 PT Coag (PPP) [Time] 10.1 s 9.0-12.9 [facility] No Panel InformationOrdered By: Jonn Wallace on 01-11-2022 Bedside Glucose Comment Glu2: cleaned meter [facility] Platelet poor plasma interna tional normalized ratio (INR) by coagulation assay (relatOrdered By: Jonn Wallace on 01-11-2022 INR Coag (PPP) [Relative time] 0.9 {INR} [facility] Comment on above: INR Therapeutic Rang e A) Pre- and Peroperative OAT started two weeks before surgery. NOT HIP SURGERY: 1.5 - 2.5 HIP SURGERY: 2 - 3B) Primary and secondary prevention of venous THROMBOSIS: 2 - 3C) Active venous thrombosis, pulmonary embolismand prevention of recurrent venous thrombosis: 2 - 3D) Prevention of arterial thromboembolismincluding patients with mechanical heart valves: 3 - 4.5 Protein [Mass/volume] in Ser um or PlasmaOrdered By: Jonn Wallace on 01-11-2022 Protein [Mass/Vol] 5.1 g/dL 6.1-7.9 [facility] Serum or plasma alanine walton otransferase measurement without P-5'-P (enzymatic activiOrdered By: Jonn Wallace on 01-11-2022 ALT No additional P-5'-P [Catalytic activity/Vol] 10 U/L 10-60 [facility] Serum or plasma albumin/glob ulin mass ratioOrdered By: Jonn Wallace on 01-11-2022 Albumin/Globulin [Mass ratio] 1.1 {ratio} [facility] Serum or plasma alkaline mari sphatase measurement (enzymatic activity/volume)Ordered By: Jonn Wallace on 01-11-2022 ALP [Catalytic activity/Vol] 110 U/L 32-92 [facility] Serum or plasma aspartate am inotransferase measurement (enzymatic activity/volume)Ordered By: Jonn Wallace on 01-11-2022 AST [Catalytic activity/Vol] 10 U/L 10-42 [facility] Serum or plasma high density lipoprotein (HDL) cholesterol measurementOrdered By: Jonn Wallace on 01-11-2022 Cholesterol in HDL [Mass/Vol] 30 mg/dL 29-71 [facility] Comment on above: HDL CHOL ATP-III CLA SSIFICATION Cardiovascular RiskHDL > or equal to 60 mg/dL LOWHDL < 40 mg/dL HIGH Serum or plasma total biliru bin measurement (mass/volume)Ordered By: Jonn Wallace on 01-11-2022 Bilirubin [Mass/Vol] 0.3 mg/dL 0.3-1.2 [facility] Serum or plasma total choles terol/high density lipoprotein (HDL) cholesterol mass ratOrdered By: Jonn Wallace on 01-11-2022 Cholesterol.total/Courtney sterol in HDL [Mass ratio] 6.1 {ratio} [facility] Triglyceride [Mass/volume] i n Serum or PlasmaOrdered By: Jonn Wallace on 01-11-2022 Triglyceride [Mass/Vol] 191 mg/dL 35-149 F [facility] Comment on above: TRIG ATP III CLASSIF ICATIONTRIG less than 150 mg/dL NormalTRIG 150-199 mg/dL Borderline highTRIG 200-500 mg/dL High TRIG greater than 500 mg/dL Very highStandard traceable to the Center for Disease Conrtrol and Prevention (CDC) test method. Troponin I.cardiac [Mass/vol ume] in Serum or Plasma by High sensitivity methodOrdered By: Jonn Wallace on 01-11-2022 Troponin I.cardiac High sensitivity method [Mass/Vol] 46 pg/mL 0-20 [facility] Basophils Auto (Bld) [#/Vol] Ordered By: Mario Phillips on 01-10-2022 Basophils (Bld) [#/Vol] 0.1 10*3/uL 0.0-0.2 [facility] Basophils/100 WBC Auto (Bld) Ordered By: Mario Phillips on 01-10-2022 Basophils/100 WBC (Bld) 1.2 % F [facility] Beta-hydroxybutyric acid taryn surementOrdered By: Mario Phillips on 01-10-2022 Beta hydroxybutyrate [Mass/Vol] 0.17 mmol/L 0.05-0.27 [facility] Blood hemoglobin measurement (mass/volume)Ordered By: Mario Phillips on 01-10-2022 Hemoglobin (Bld) [Mass/Vol] 12.0 g/dL 13.0-17.0 [facility] Blood leukocytes automated c ount (number/volume)Ordered By: Mario Phillips on 01-10-2022 WBC (Bld) [#/Vol] 9.8 10*3/uL 4.5-11.0 [facility] COVID-19 Positive/NegativeOr dered By: Mario Phillips on 01-10-2022 SARS-CoV-2 (COVID-19) N gene HONEY+probe Ql (Resp) Negative Negative [facility] Comment on above: Testing for SARS-CoV -2 by RT-PCRThis test was developed and its performance characteristics determined by [employer] ([employer]) and validated at the [facility]. This test has not been FDA cleared or approved. This test has been authorized by FDA under an Emergency Use Authorization (EUA). This test has been validated in accordance with the FDA's Guidance Document (Policy for Diagnostics Testing in Laboratories Certified to Perform High Complexity Testing under CLIA prior to Emergency Use Authorization for Coronavirus Disease-2019 during the Public Health Emergency) issued on January 14, 2020. This test is only authorized for the duration of time the declaration that circumstances exist justifying the authorization of the emergency use of in vitro diagnostic tests for detection of SARS-CoV-2 virus and/or diagnosis of COVID-19 infection under section 564(b)(1) of the Act, 21 U.S.C. 360bbb-3(b)(1), unless the authorization is terminated or revoked sooner. COVID-19 SOFIAOrdered By: Gian Phillips on 01-10-2022 SARS-CoV+SARS-CoV-2 (COVID-19) Ag IA.rapid Ql (Resp) Negative Negative [facility] Comment on above: This is a duplicate Estelita SARS Antigen (RACIEL) result to be used for statistical tracking purpose only. Creatinine and Glomerular fi ltration rate.predicted panel (S/P/Bld)Ordered By: Mario Phillips on 01-10-2022 Creatinine [Mass/Vol] 1.30 mg/dL 0.64-1.27 [facility] Eosinophils Auto (Bld) [#/Vo l]Ordered By: Mario Phillips on 01-10-2022 Eosinophils (Bld) [#/Vol] 0.4 10*3/uL 0.0-0.45 [facility] Eosinophils/100 WBC Auto (Bl d)Ordered By: Mario Phillips on 01-10-2022 Eosinophils/100 WBC (Bld) 4.2 % [facility] Erythrocyte distribution wid th Auto (RBC) [Ratio]Ordered By: Mario Phillips on 01-10-2022 Erythrocyte distribution width (RBC) [Ratio] 14.0 % 12.0-14.8 [facility] Estimated glomerular filtrat ion rate (GFR) non- AmericanOrdered By: Mario Phillips on 01-10-2022 GFR/1.73 sq M.predicted among non-blacks MDRD (S/P/Bld) [Vol rate/Area] 58 mL/Min [facility] Glucose mean value [Mass/vol ume] in Blood Estimated from glycated hemoglobinOrdered By: Jonn Wallace on 01-10-2022 Average glucose Estimated from glycated hemoglobin (Bld) [Mass/Vol] 407 mg/dL [facility] Hematocrit Auto (Bld) [Volum e fraction]Ordered By: Mario Phillips on 01-10-2022 Hematocrit (Bld) [Volume fraction] 35.2 % 38.8-50.0 [facility] Hemoglobin A1c percentageOrd ered By: Jonn Wallace on 01-10-2022 HbA1c (Bld) [Mass fraction] 15.8 % 4.3-5.6 [facility] Comment on above: Increased risk for d iabetes: 5.7 - 6.4diabetes: >6.4glycemic control for adults with diabetes: <7.0 Laboratory - Chemistry and C hemistry - challengeOrdered By: Mario Phillips on 01-10-2022 Natriuretic peptide B (Bld) [Mass/Vol] 252.0 pg/mL 5-100 [facility] Laboratory - Hematology and Cell countsOrdered By: Mario Phillips on 01-10-2022 Nucleated RBC/100 WBC (Bld) [Ratio] 0.0 % 0-0.5 [facility] Laboratory - Microbiology an d Antimicrobial susceptibilityOrdered By: Mario Phillips on 01-10-2022 SARS-CoV-2 (COVID-19) RNA HONEY+probe Ql (Unsp spec) N/A [facility] Lymphocytes Auto (Bld) [#/Vo l]Ordered By: Mario Phillips on 01-10-2022 Lymphocytes (Bld) [#/Vol] 1.2 10*3/uL 1.00-4.8 [facility] Lymphocytes/100 WBC Auto (Bl d)Ordered By: Mario Phillips on 01-10-2022 Lymphocytes/100 WBC (Bld) 12.3 % [facility] MCH Auto (RBC) [Entitic mass ]Ordered By: Mario Phillips on 01-10-2022 MCH (RBC) [Entitic mass] 31.1 pg 27.5-35.2 [facility] MCHC Auto (RBC) [Mass/Vol]Or dered By: Mario Phillips on 01-10-2022 MCHC (RBC) [Mass/Vol] 34.1 g/dL 32.5-35.6 [facility] MCV Auto (RBC) [Entitic vol] Ordered By: Mraio Phillips on 01-10-2022 MCV (RBC) [Entitic vol] 91.2 fL 83.5-101 F [facility] Monocytes Auto (Bld) [#/Vol] Ordered By: Mario Phillips on 01-10-2022 Monocytes (Bld) [#/Vol] 0.5 10*3/uL 0.0-0.8 [facility] Monocytes/100 WBC Auto (Bld) Ordered By: Mario Phillips on 01-10-2022 Monocytes/100 WBC (Bld) 4.8 % [facility] Neutrophils Auto (Bld) [#/Vo l]Ordered By: Mario Phillips on 01-10-2022 Neutrophils (Bld) [#/Vol] 7.6 10*3/uL 1.8-7.7 [facility] Neutrophils/100 WBC Auto (Bl d)Ordered By: Mario Phillips on 01-10-2022 Neutrophils/100 WBC (Bld) 77.5 % [facility] No Panel InformationOrdered By: Mario Phillips on 01-10-2022 SARS Antigen (LFIA) [facility] Estimated GFR () > 60 mL/Min [facility] Comment on above: GFR estimated refere nce range: According to KDOQI guidelines, <60 ml/min/1.73m2 is sufficient to diagnose a patient with chronic kidney disease. Pharmacy Creatinine Clearance (Chem 76.93 [facility] No Panel InformationOrdered By: Jonn Wallace on 01-10-2022 D-Dimer Quantitative (PE/DVT) < 200 ng/mL 0-243 [facility] Comment on above: The reference range for D-dimer is <243 ng/mL D-dimer units.D-dimer results must be used in conjunction with a clinicalpretest probability (PTP) assessment model for deep veinthrombosis (DVT) and pulmonary embolism (PE). Results <230ng/mL d-dimer units can be used as a negative predictor inpatients with low or moderate probability for DVT/PE.Results above the exclusion threshold of 230 ng/ml D-dimerunits for DVT/PE may indicate the need for furtherdiagnostic testing.D-Dimer can be increased in hospitalized patients due toco-morbid conditions. Platelet mean volume Auto (B ld) [Entitic vol]Ordered By: Mario Phillips on 01-10-2022 Platelet mean volume (Bld) [Entitic vol] 9.8 fL 6.6-10.1 [facility] Platelets Auto (Bld) [#/Vol] Ordered By: Mario Phillips on 01-10-2022 Platelets (Bld) [#/Vol] 197 10*3/uL 150-450 [facility] RBC Auto (Bld) [#/Vol]Ordere d By: Mario Phillips on 01-10-2022 RBC (Bld) [#/Vol] 3.86 10*6/uL 3.90-5.60 [facility] Serum or plasma calcium regi urement (mass/volume)Ordered By: Mario Phillips on 01-10-2022 Calcium [Mass/Vol] 8.3 mg/dL 8.2-10.2 [facility] Serum or plasma chloride taryn surement (moles/volume)Ordered By: Mario Phillips on 01-10-2022 Chloride [Moles/Vol] 94 mmol/L 95-114 [facility] Serum or plasma glucose regi urement (mass/volume)Ordered By: Mario Phillips on 01-10-2022 Glucose [Mass/Vol] 525 mg/dL 70-100 [facility] Comment on above: Critical valueresult calledat 1528 on 01/10/22ADA recommended reference rangeRandom Glucose Reference Range is dependent on time and content of last meal. Glucose of more than 200 mg/dL in a nonstressed, ambulatory subject supports the diagnosis of Diabetes Mellitus. Serum or plasma potassium me asurement (moles/volume)Ordered By: Mario Phillips on 01-10-2022 Potassium [Moles/Vol] 4.6 mmol/L 3.5-5.1 [facility] Serum or plasma sodium measu rement (moles/volume)Ordered By: Mario Phillips on 01-10-2022 Sodium [Moles/Vol] 126 mmol/L 136-146 [facility] Serum or plasma total carbon dioxide measurement (moles/volume)Ordered By: Mario Phillips on 01-10-2022 CO2 [Moles/Vol] 22.7 mmol/L 22.0-30.0 [facility] Serum or plasma urea nitroge n measurement (mass/volume)Ordered By: Mario Phillips on 01-10-2022 Urea nitrogen [Mass/Vol] 17 mg/dL 9-23 [facility] TSH DL <= 0.005 mIU/L QnOrde red By: Jonn Wallace on 01-10-2022 TSH Qn 4.22 m[IU]/L 0.45-5.33 [facility] Troponin I.cardiac [Mass/vol ume] in Serum or Plasma by High sensitivity methodOrdered By: Mario Phillips on 01-10-2022 Troponin I.cardiac High sensitivity method [Mass/Vol] 43 pg/mL 0-20 [facility] COVID Quick Testingon 2020 Result Positive [facility] [employer] Other A1C HEMOGLOBINon 07-20-2021 HbA1c (Bld) [Mass fraction] % [facility] [employer] Other Glucose - FINGER STICKon Glucose [Mass/Vol] 573 mg/dL [facility] [employer] Other HbA1c (Bld) [Mass fraction]o n 07-20-2021 A1C HEMOGLOBIN [facility] [employer] Other CBC With Platelet and Differ entialon 12-29-2020 Basophils (Bld) [#/Vol] 0.0 10*3/uL Normal 0.0-0.2 [facility] Comment on above: Performed By: #### C BCWD ####[facility] [facility] [phone] Basophils/100 WBC (Bld) 0.4 % Normal [facility] Comment on above: Performed By: #### C BCWD ####[facility] [facility] [phone] Eosinophils (Bld) [#/Vol] 0.4 10*3/uL Normal 0.0-0.7 [facility] Comment on above: Performed By: #### C BCWD ####[facility] [facility] [phone] Eosinophils/100 WBC (Bld) 3.6 % Normal [facility] Comment on above: Performed By: #### C BCWD ####[facility] [facility] [phone] Erythrocyte distribution width (RBC) [Ratio] 16.1 % Critically high 11.5-14.5 [facility] Comment on above: Performed By: #### C BCWD ####[facility] [facility] [phone] Hematocrit (Bld) [Volume fraction] 33.1 % Low 42.0-52.0 [facility] Comment on above: Performed By: #### C BCWD ####[facility] [facility] [phone] Hemoglobin (Bld) [Mass/Vol] 10.8 g/dL Low 14.0-18.0 [facility] Comment on above: Performed By: #### C BCWD ####[facility] [facility] [phone] Lymphocytes (Bld) [#/Vol] 1.1 10*3/uL Normal 1.0-4.8 [facility] Comment on above: Performed By: #### C BCWD ####[facility] [facility] [phone] Lymphocytes/100 WBC (Bld) 9.4 % Normal [facility] Comment on above: Performed By: #### C BCWD ####[facility] [facility] [phone] MCH (RBC) [Entitic mass] 28.6 pg Normal 27.0-31.3 [facility] Comment on above: Performed By: #### C BCWD ####[facility] [facility] [phone] MCHC (RBC) [Mass/Vol] 32.8 % Low 33.0-37.0 [facility] Comment on above: Performed By: #### C BCWD ####[facility] [facility] [phone] MCV (RBC) [Entitic vol] 87.4 fL Normal 80.0-100.0 [facility] Comment on above: Performed By: #### C BCWD ####[facility] [facility] [place] [phone] Monocytes (Bld) [#/Vol] 0.7 10*3/uL Normal 0.2-0.8 [facility] Comment on above: Performed By: #### C BCWD ####[facility] [facility] Hospitalain [place] [phone] Monocytes/100 WBC (Bld) 5.9 % Normal [facility] Comment on above: Performed By: #### C BCWD ####[facility] [place] [phone] Neutrophils (Bld) [#/Vol] 9.4 10*3/uL Critically high 1.4-6.5 [facility] Comment on above: Performed By: #### C BCWD ####[facility] [place] [phone] Neutrophils/100 WBC (Bld) 80.7 % Normal [facility] Comment on above: Performed By: #### C BCWD ####[facility] [facility] [phone] Platelets (Bld) [#/Vol] 314 10*3/uL Normal 130-400 [facility] Comment on above: Performed By: #### C BCWD ####[facility] [facility] [address] [place] [place] [phone] RBC (Bld) [#/Vol] 3.79 10*6/uL Low 4.70-6.10 [facility] Comment on above: Performed By: #### C BCWD ####[facility] [facility] Hospitalain [place] [phone] WBC (Bld) [#/Vol] 11.7 10*3/uL Critically high 4.8-10.8 [facility] Comment on above: Performed By: #### C BCWD ####[facility] [place] [place] [phone] CBC auto differentialon 12-12 Basophils (Bld) [#/Vol] 0.0 10*3/uL 0.0 - 0.2 K/uL [employer]: Basophils/100 WBC (Bld) 0.4 % [facility] Phone: Eosinophils (Bld) [#/Vol] 0.4 10*3/uL 0.0 - 0.7 K/uL [employer]: Eosinophils/100 WBC (Bld) 3.6 % [employer]: Erythrocyte distribution width (RBC) [Ratio] 16.1 % High 11.5 - 14.5 % [employer]: Hematocrit (Bld) [Volume fraction] 33.1 % Low 42.0 - 52.0 % [employer]: Hemoglobin (Bld) [Mass/Vol] 10.8 g/dL Low 14.0 - 18.0 g/dL [employer]: Interpretation and review of laboratory results Abnormal [employer]: Lymphocytes (Bld) [#/Vol] 1.1 10*3/uL 1.0 - 4.8 K/uL [employer]: Lymphocytes/100 WBC (Bld) 9.4 % [employer]: MCH (RBC) [Entitic mass] 28.6 pg 27.0 - 31.3 pg [employer]: MCHC (RBC) [Mass/Vol] 32.8 % Low 33.0 - 37.0 % [employer]: MCV (RBC) [Entitic vol] 87.4 fL 80.0 - 100.0 fL [employer]: Monocytes (Bld) [#/Vol] 0.7 10*3/uL 0.2 - 0.8 K/uL [employer]: Monocytes/100 WBC (Bld) 5.9 % M [facility] Phone: Neutrophils Absolute 9.4 K/uL High 1.4 - 6 .5 K/uL [facility] Phone: Neutrophils/100 WBC (Bld) 80.7 % [facility] Phone: Platelets (Bld) [#/Vol] 314 10*3/uL 130 - 400 K/uL [facility] Phone: RBC (Bld) [#/Vol] 3.79 10*6/uL Low [facility] Phone: WBC (Bld) [#/Vol] 11.7 10*3/uL High 4.8 - 10.8 K/uL [facility] Phone: Comprehensive Metabolic Pane l reflex Mgon 12-29-2020 Anion gap [Moles/Vol] 19 mmol/L Critically high 9-15 [facility] Comment on above: Performed By: #### C MPX ####[facility] [facility] [phone] Albumin [Mass/Vol] 3.7 g/dL Normal 3.5-4.6 [facility] Comment on above: Performed By: #### C MPX ####[facility] [facility] [phone] ALP [Catalytic activity/Vol] 109 U/L Critically high 35-104 [facility] Comment on above: Performed By: #### C MPX ####[facility] [facility] [phone] ALT [Catalytic activity/Vol] 13 U/L Normal 0-41 [facility] Comment on above: Performed By: #### C MPX ####[facility] [facility] [phone] AST [Catalytic activity/Vol] 15 U/L Normal 0-40 [facility] Comment on above: Performed By: #### C MPX ####[facility] [facility] [phone] Bilirubin [Mass/Vol] mg/dL Normal 0.2-0.7 [facility] Comment on above: Performed By: #### C MPX ####[facility] [facility] [phone] Calcium [Mass/Vol] 9.4 mg/dL Normal 8.5-9.9 [facility] Comment on above: Performed By: #### C MPX ####[facility] [facility] [phone] Chloride [Moles/Vol] 104 mmol/L Normal 95-107 [facility] Comment on above: Performed By: #### C MPX ####[facility] [facility] [phone] CO2 [Moles/Vol] 22 mmol/L Normal 20-31 [facility] Comment on above: Performed By: #### C MPX ####[facility] [facility] [phone] Creatinine [Mass/Vol] 1.50 mg/dL Critically high 0.70-1.20 [facility] Comment on above: Performed By: #### C MPX ####[facility] [facility] [phone] GFR/1.73 sq M predicted among blacks MDRD (S/P/Bld) [Vol rate/Area] mL/min/{1.73_m2} Normal >60 [facility] Comment on above: Result Comment: >60 mL/min/1.73m2 EGFR, calc. for ages 18 and older using the MDRD formula (not corrected for weight), is valid for stable renal function. Performed By: #### C MPX ####[facility] [facility] [phone] GFR/1.73 sq M.predicted MDRD (S/P/Bld) [Vol rate/Area] 49.6 mL/min/{1.73_m2} Low >60 [facility] Comment on above: Result Comment: >60 mL/min/1.73m2 EGFR, calc. for ages 18 and older using the MDRD formula (not corrected for weight), is valid for stable renal function. Performed By: #### C MPX ####[facility] [facility] [phone] Globulin (S) [Mass/Vol] 3.2 g/dL Normal 2.3-3.5 [facility] Comment on above: Performed By: #### C MPX ####[facility] [facility] [phone] Glucose [Mass/Vol] 211 mg/dL Critically high 70-99 [facility] Comment on above: Performed By: #### C MPX ####[facility] [facility] [phone] Potassium reflex Mg 5.2 mEq/L Critically high 3.4-4.9 [facility] Comment on above: Performed By: #### C MPX ####[facility] [facility] [phone] Protein [Mass/Vol] 6.9 g/dL Normal 6.3-8.0 [facility] Comment on above: Performed By: #### C MPX ####[facility] [facility] [phone] Sodium [Moles/Vol] 145 mmol/L Critically high 135-144 [facility] Comment on above: Performed By: #### C MPX ####[facility] [facility] [phone] Urea nitrogen [Mass/Vol] 54 mg/dL Critically high 6-20 [facility] Comment on above: Performed By: #### C MPX ####[facility] [facility] [phone] Comprehensive Metabolic Pane l w/ Reflex to MGon 12-29-2020 Albumin [Mass/Vol] 3.7 g/dL 3.5 - 4.6 g/dL [facility] Work Phone: ALP [Catalytic activity/Vol] 109 U/L High 35 - 104 U/L [facility] [employer] Work Phone: ALT [Catalytic activity/Vol] 13 U/L 0 - 41 U/L [facility] [employer] Work Phone: Anion gap [Moles/Vol] 19 mmol/L High [facility] [employer] Work Phone: AST [Catalytic activity/Vol] 15 U/L 0 - 40 U/L [facility] [employer] Work Phone: Bilirubin Ql (U) <0.2 0.2 - 0.7 mg/dL [facility] [employer] Work Phone: Calcium [Mass/Vol] 9.4 mg/dL 8.5 - 9.9 mg/dL [facility] [employer] Work Phone: Chloride [Moles/Vol] 104 mmol/L [facility] [employer] Work Phone: CO2 [Moles/Vol] 22 mmol/L [facility] Work Phone: Creatinine [Mass/Vol] 1.5 mg/dL High 0.70 - 1.20 mg/dL [facility] [employer] Work Phone: GFR >60.0 >60 [employer] Work Phone: Comment on above: >60 mL/min/1.73m2 EG FR, calc. for ages 18 and older using the MDRD formula (not corrected for weight), is valid for stable renal function. GFR Non- 49.6 Low >60 [employer] Work Phone: Comment on above: >60 mL/min/1.73m2 EG FR, calc. for ages 18 and older using the MDRD formula (not corrected for weight), is valid for stable renal function. Globulin (S) [Mass/Vol] 3.2 g/dL 2.3 - 3.5 g/dL [facility] [employer] Phone: Glucose [Mass/Vol] 211 mg/dL High 70 - 99 mg/dL [facility] [employer] Phone: Interpretation and review of laboratory results Abnormal [facility] [employer] Phone: Potassium [Moles/Vol] 5.2 mmol/L High [facility] [employer] Work Phone: Protein [Mass/Vol] 6.9 g/dL 6.3 - 8.0 g/dL [facility] [employer] Phone: Sodium [Moles/Vol] 145 mmol/L High [facility] [employer] Phone: Urea nitrogen [Mass/Vol] 54 mg/dL High 6 - 20 mg/dL [facility] [employer] Phone: POCT Glucoseon 12-29-2020 Glucose [Mass/Vol] 168 mg/dL Critically high 60-115 [facility] Comment on above: Performed By: #### P GLU ####[facility] [facility] [place] [phone] POC Performed on ACCU-CHEK [facility] Comment on above: Performed By: #### P GLU ####[facility] [facility] [place] [facility] [place] [phone] Glucose [Mass/Vol] 168 mg/dL High 60 - 115 mg/dl [facility] [employer] Phone: Interpretation and review of laboratory results Abnormal [facility] [employer] Phone: Performed on ACCU-CHEK [facility] [employer] Phone: Glucose [Mass/Vol] 242 mg/dL Critically high 60-115 [facility] Comment on above: Performed By: #### P GLU #### [facility] [address] [place] [address] POC Performed on ACCU-CHEK Normal [facility] Comment on above: Performed By: #### P GLU #### [facility] [address] [place] [address] Glucose [Mass/Vol] 242 mg/dL High 60 - 115 mg/dl [facility] Phone: Interpretation and review of laboratory results Abnormal [facility] Phone: Performed on ACCU-CHEK [facility] Phone: APTTon 12-28-2020 aPTT Coag (d) [Time] 28.8 s [facility] [employer] Phone: Comment on above: Effective 08/17/2020: Heparin Therapeutic Range: 64.0 98.0 seconds. Basic Metabolic Panelon 12-12 Calcium [Mass/Vol] 9.3 mg/dL Normal 8.5-9.9 [facility] Comment on above: Performed By: #### B MP #### [facility] [address] [place] [address] Chloride [Moles/Vol] 99 mmol/L Normal 95-107 [facility] Comment on above: Performed By: #### B MP #### [facility] [address] [place] [address] CO2 [Moles/Vol] 29 mmol/L Normal 20-31 [facility] Comment on above: Performed By: #### B MP #### [facility] [address] [place] [address] Creatinine [Mass/Vol] 1.59 mg/dL Critically high 0.70-1.20 [facility] Comment on above: Performed By: #### B MP #### [facility] [address] [place] [address] GFR/1.73 sq M predicted among blacks MDRD (S/P/Bld) [Vol rate/Area] 56.2 mL/min/{1.73_m2} Low >60 [facility] Comment on above: Result Comment: >60 mL/min/1.73m2 EGFR, calc. for ages 18 and older using the MDRD formula (not corrected for weight), is valid for stable renal function. Performed By: #### B MP #### [facility] [address] [place] [address] GFR/1.73 sq M.predicted MDRD (S/P/Bld) [Vol rate/Area] 46.4 mL/min/{1.73_m2} Low >60 [facility] Comment on above: Result Comment: >60 mL/min/1.73m2 EGFR, calc. for ages 18 and older using the MDRD formula (not corrected for weight), is valid for stable renal function. Performed By: #### B MP #### [facility] [address] [place] [address] Glucose [Mass/Vol] 73 mg/dL Normal 70-99 [facility] Comment on above: Performed By: #### B MP #### [facility] [address] [place] [address] Potassium [Moles/Vol] 4.8 mmol/L Normal 3.4-4.9 [facility] Comment on above: Performed By: #### B MP #### [facility] [address] [place] [address] Sodium [Moles/Vol] 137 mmol/L Normal 135-144 [facility] Comment on above: Performed By: #### B MP #### [facility] [address] [place] [address] Urea nitrogen [Mass/Vol] 58 mg/dL Critically high 6-20 [facility] Comment on above: Performed By: #### B MP #### [facility] [address] [place] [address] Anion gap [Moles/Vol] 9 mmol/L Normal 9-15 [facility] Comment on above: Performed By: #### B MP #### [facility] [address] [place] [address] Anion gap [Moles/Vol] 9 mmol/L [facility] [employer] Work Phone: Calcium [Mass/Vol] 9.3 mg/dL 8.5 - 9.9 mg/dL [facility] [employer] Phone: Chloride [Moles/Vol] 99 mmol/L [facility] Phone: CO2 [Moles/Vol] 29 mmol/L [facility] Work Phone: Creatinine [Mass/Vol] 1.59 mg/dL High 0.70 - 1.20 mg/dL [facility] [employer] Phone: GFR 56.2 Low >60 [facility] Phone: Comment on above: >60 mL/min/1.73m2 EG FR, calc. for ages 18 and older using the MDRD formula (not corrected for weight), is valid for stable renal function. GFR Non- 46.4 Low >60 [facility] Phone: Comment on above: >60 mL/min/1.73m2 EG FR, calc. for ages 18 and older using the MDRD formula (not corrected for weight), is valid for stable renal function. Glucose [Mass/Vol] 73 mg/dL 70 - 99 mg/dL [facility] [employer] Phone: Interpretation and review of laboratory results Abnormal [facility] Phone: Potassium [Moles/Vol] 4.8 mmol/L [facility] [employer] Phone: Sodium [Moles/Vol] 137 mmol/L [facility] [employer] Phone: Urea nitrogen [Mass/Vol] 58 mg/dL High 6 - 20 mg/dL [facility] [employer] Phone: CBC Auto Differentialon 12-12 Basophils (Bld) [#/Vol] 0.0 10*3/uL 0.0 - 0.2 K/uL [facility] Phone: Basophils/100 WBC (Bld) 0.3 % [facility] Work Phone: Eosinophils (Bld) [#/Vol] 0.6 10*3/uL 0.0 - 0.7 K/uL [employer] Phone: Eosinophils/100 WBC (Bld) 5.5 % [employer] Phone: Erythrocyte distribution width (RBC) [Ratio] 15.1 % High 11.5 - 14.5 % [employer] Phone: Hematocrit (Bld) [Volume fraction] 34.7 % Low 42.0 - 52.0 % [employer] Phone: Hemoglobin (Bld) [Mass/Vol] 11.5 g/dL Low 14.0 - 18.0 g/dL [employer] Phone: Interpretation and review of laboratory results Abnormal [employer] Phone: Lymphocytes (Bld) [#/Vol] 1.4 10*3/uL 1.0 - 4.8 K/uL [employer] Phone: Lymphocytes/100 WBC (Bld) 13.4 % [employer] Phone: MCH (RBC) [Entitic mass] 28.8 pg 27.0 - 31.3 pg [employer] Phone: MCHC (RBC) [Mass/Vol] 33.0 % 33.0 - 37.0 % [employer] Phone: MCV (RBC) [Entitic vol] 87.0 fL 80.0 - 100.0 fL [employer] Phone: Monocytes (Bld) [#/Vol] 0.8 10*3/uL 0.2 - 0.8 K/uL [employer] Phone: Monocytes/100 WBC (Bld) 7.5 % [facility] [employer] Phone: Neutrophils Absolute 7.5 K/uL High 1.4 - 6 .5 K/uL [employer] Phone: Neutrophils/100 WBC (Bld) 73.3 % [facility] Phone: Platelets (Bld) [#/Vol] 306 10*3/uL 130 - 400 K/uL [facility] Phone: RBC (Bld) [#/Vol] 3.99 10*6/uL Low [facility] [employer] Phone: WBC (Bld) [#/Vol] 10.2 10*3/uL 4.8 - 10.8 K/uL [facility] [employer] Phone: CBC With Platelet and Differ entialon 12-28-2020 Basophils (Bld) [#/Vol] 0.0 10*3/uL Normal 0.0-0.2 [facility] Comment on above: Performed By: #### C BCWD #### [facility] [address] [place] [address] Basophils/100 WBC (Bld) 0.3 % Normal [facility] Comment on above: Performed By: #### C BCWD #### [facility] [address] [place] [address] Eosinophils (Bld) [#/Vol] 0.6 10*3/uL Normal 0.0-0.7 [facility] Comment on above: Performed By: #### C BCWD #### [facility] [address] [place] [address] Eosinophils/100 WBC (Bld) 5.5 % Normal [facility] Comment on above: Performed By: #### C BCWD #### [facility] [address] [place] [address] Erythrocyte distribution width (RBC) [Ratio] 15.1 % Critically high 11.5-14.5 [facility] Comment on above: Performed By: #### C BCWD #### [facility] [address] [place] [address] Hematocrit (Bld) [Volume fraction] 34.7 % Low 42.0-52.0 [facility] Comment on above: Performed By: #### C BCWD #### [facility] [address] [place] [address] Hemoglobin (Bld) [Mass/Vol] 11.5 g/dL Low 14.0-18.0 [facility] Comment on above: Performed By: #### C BCWD #### [facility] [address] [place] [address] Lymphocytes (Bld) [#/Vol] 1.4 10*3/uL Normal 1.0-4.8 [facility] Comment on above: Performed By: #### C BCWD #### [facility] [address] [place] [address] Lymphocytes/100 WBC (Bld) 13.4 % Normal [facility] Comment on above: Performed By: #### C BCWD #### [facility] [address] [place] [address] MCH (RBC) [Entitic mass] 28.8 pg Normal 27.0-31.3 [facility] Comment on above: Performed By: #### C BCWD #### [facility] [address] [place] [address] MCHC (RBC) [Mass/Vol] 33.0 % Normal 33.0-37.0 [facility] Comment on above: Performed By: #### C BCWD #### [facility] [address] [place] [address] MCV (RBC) [Entitic vol] 87.0 fL Normal 80.0-100.0 [facility] Comment on above: Performed By: #### C BCWD #### [facility] [address] [place] [address] Monocytes (Bld) [#/Vol] 0.8 10*3/uL Normal 0.2-0.8 [facility] Comment on above: Performed By: #### C BCWD #### [facility] [address] [place] [address] Monocytes/100 WBC (Bld) 7.5 % Normal [facility] Comment on above: Performed By: #### C BCWD #### [facility] [address] [place] [address] Neutrophils (Bld) [#/Vol] 7.5 10*3/uL Critically high 1.4-6.5 [facility] Comment on above: Performed By: #### C BCWD #### [facility] [address] [place] [address] Neutrophils/100 WBC (Bld) 73.3 % Normal [facility] Comment on above: Performed By: #### C BCWD #### [facility] [address] [place] [address] Platelets (Bld) [#/Vol] 306 10*3/uL Normal 130-400 [facility] Comment on above: Performed By: #### C BCWD #### [facility] [address] [place] [address] RBC (Bld) [#/Vol] 3.99 10*6/uL Low 4.70-6.10 [facility] Comment on above: Performed By: #### C BCWD #### [facility] [address] [place] [address] WBC (Bld) [#/Vol] 10.2 10*3/uL Normal 4.8-10.8 [facility] Comment on above: Performed By: #### C BCWD #### [facility] [address] [place] [address] COVID-19on 12-28-2020 COVID-19, NAAT Not Detected Normal Not Detect [facility] Comment on above: Result Comment: Rapi d NAAT: Negative results should be treated as presumptive and, if inconsistent with clinical signs and symptoms or necessary for patient management, should be tested with an alternative molecular assay. Negative results do not preclude SARS-CoV-2 infection and should not be used as the sole basis for patient management decisions. This test has been authorized by the FDA under an Emergency Use Authorization (EUA) for use by authorized laboratories. Fact sheet for Healthcare Providers: https://www.fda.gov/media/862794/download Fact sheet for Patients: https://www.fda.gov/media/632467/download METHODOLOGY: Isothermal Nucleic Acid Amplification Performed By: #### C OVRG #### [facility] [address] [place] [address] COVID-19, Rapidon 12-28-2020 SARS-CoV-2, NAAT Not Detected Not Detected [facility] Phone: Comment on above: Rapid NAAT: Negative results should be treated as presumptive and, if inconsistent with clinical signs and symptoms or necessary for patient management, should be tested with an alternative molecular assay. Negative results do not preclude SARS-CoV-2 infection and should not be used as the sole basis for patient management decisions. This test has been authorized by the FDA under an Emergency Use Authorization (EUA) for use by authorized laboratories. Fact sheet for Healthcare Providers: https://www.fda.gov/media/969627/download Fact sheet for Patients: https://www.fda.gov/media/433775/download METHODOLOGY: Isothermal Nucleic Acid Amplification POCT Glucoseon 12-28-2020 Glucose [Mass/Vol] 86 mg/dL Normal 60-115 [facility] Comment on above: Performed By: #### P GLU #### [facility] [address] [place] [address] POC Performed on ACCU-CHEK Normal [facility] Comment on above: Performed By: #### P GLU #### [facility] [address] [place] [address] Glucose [Mass/Vol] 86 mg/dL 60 - 115 mg/dl [facility] [employer] Phone: Performed on ACCU-CHEK [facility] Phone: Partial Thromboplastin Timeo n 12-28-2020 aPTT Coag (Bld) [Time] 28.8 s Normal 24.4-36.8 [facility] Comment on above: Result Comment: Effe ctive 08/17/2020: Heparin Therapeutic Range: 64.0 ? 98.0 seconds. Performed By: #### P TT #### [facility] [address] [place] [address] Prothrombin Timeon 1 INR Coag (PPP) [Relative time] 1.0 {INR} Normal [facility] Comment on above: Performed By: #### P T #### [facility] [address] [place] [address] PT Coag (PPP) [Time] 13.7 s Normal 12.3-14.9 [facility] Comment on above: Performed By: #### P T #### [facility] [address] [place] [address] Protime-INRon 12-28-2020 INR Coag (PPP) [Relative time] 1.0 {INR} [facility] [employer] Work Phone: PT Coag (PPP) [Time] 13.7 s [facility] [employer] Phone: TYPE AND SCREENon 12-28-2020 ABO/Rh Positive [facility] [employer] Phone: Type and Screen Capture 3 sc rn cellon 12-28-2020 Type and Screen Capture 3 scrn cell PATIENT: KEI Forde LOC: [facility] BILL# : [id number] : 1970 SEX: M ORDERED BY: URIAH BONILLA ORDERED : 12/28/2020 12:26 COLLECTED: 12/28/2020 12:30 ORDER : [id number] RECEIVED : 12/28/2020 13:07 ------ TEST NAME RESULT UNITS RANGES ABN FL ST ABORH Capture O POS F Antibody 3 Cell Scrn Captu NEG F ----- Normal [facility] Comment on above: Performed By: #### T S3C #### [facility] [address] [place] [address] CTA ABDOMINAL AORTA W BILAT RUNOFF W WO CONTRASTon 12-21-2020 Three-vessel distal runoff, right lower extremity. Two-vessel distal runoff, left lower extremity, the anterior tibial and posterior tibial arteries. Bilateral lower extremity edema. Constipation All CT scans at this facility use dose modulation, iterative reconstruction, and/or weight based dosing when appropriate to reduce radiation dose to as low as reasonably achievable. [facility] [employer] Phone: CTA abdomen, pelvis, bilateral lower extremities, with intravenous contrast medium. 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 Technical Factors: CTA imaging of the abdomen, pelvis, and bilateral lower extremities, were obtained and formatted as 5 mm contiguous axial images from the domes of the diaphragm to the feet. Overlap, and 3-D MIP, sagittal, and coronal reconstructions were also obtained. Oral contrast medium: None. Intravenous contrast medium: Isovue 370, 150 mL, followed by saline infusion. Comparison: None. Findings: Lungs: Lung bases are clear. Liver: Normal in size, shape, and attenuation. Bile Ducts: Normal in caliber. Gallbladder: No stones or wall thickening. Pancreas: Normal without masses, cysts, ductal dilatation or calcification. Spleen: Normal in size without masses or calcifications. No splenules. Kidneys: Normal in size and enhancement. No hydronephrosis, masses, or stones. Adrenals: Normal. Small bowel: Normal in caliber. Appendix: Normal. Colon: Normal in caliber. Copious stool throughout colon. Peritoneum: No ascites, free air, or fluid collections. Lymph nodes: Retroperitoneal: No enlarged retroperitoneal lymph nodes. Mesenteric: No enlarged mesenteric lymph nodes. Pelvic: No enlarged pelvic lymph nodes. Ureters: Normal in course and caliber. No calcifications. Bladder: No wall thickening. Reproductive organs: No pelvic masses. Abdominal Wall: Fat identified left inguinal canal. Musculoskeletal: No bone lesions. No degenerative changes. No post operative changes. Diffuse bilateral lower extremity edema. Vessels: Aorta normal in course and caliber. [place] of superior and inferior mesenteric arteries, and celiac artery patent. [place] of single right renal renal artery, left main renal artery, and left accessory artery patent. Portal vein, splenic vein, superior mesenteric vein are patent. On the right side, the right common, internal, and external iliac arteries are patent. The right common, profunda femoral, and superficial femoral arteries are patent. The right popliteal artery is patent. Right anterior tibial, posterior tibial, and peroneal arteries are patent from their origin to the level of the ankle. On the left side, left common, internal, and external iliac arteries are patent. Left common femoral, profunda femoral, and superficial femoral arteries are patent. Left popliteal artery is patent. Left anterior tibial and posterior tibial arteries are patent from their origin to the level of the ankle. Left peroneal artery is patent from its origin to the level of the distal tibia. [employer] Work Phone: Chip, [facility] Incoming Radiant Results From [facility] [facility] - 12/21/2020 9:36 AM EST CTA abdomen, pelvis, bilateral lower extremities, with intravenous contrast medium. 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 Technical Factors: CTA imaging of the abdomen, pelvis, and bilateral lower extremities, were obtained and formatted as 5 mm contiguous axial images from the domes of the diaphragm to the feet. Overlap, and 3-D MIP, sagittal, and coronal reconstructions were also obtained. Oral contrast medium: None. Intravenous contrast medium: Isovue 370, 150 mL, followed by saline infusion. Comparison: None. Findings: Lungs: Lung bases are clear. Liver: Normal in size, shape, and attenuation. Bile Ducts: Normal in caliber. Gallbladder: No stones or wall thickening. Pancreas: Normal without masses, cysts, ductal dilatation or calcification. Spleen: Normal in size without masses or calcifications. No splenules. Kidneys: Normal in size and enhancement. No hydronephrosis, masses, or stones. Adrenals: Normal. Small bowel: Normal in caliber. Appendix: Normal. Colon: Normal in caliber. Copious stool throughout colon. Peritoneum: No ascites, free air, or fluid collections. Lymph nodes: Retroperitoneal: No enlarged retroperitoneal lymph nodes. Mesenteric: No enlarged mesenteric lymph nodes. Pelvic: No enlarged pelvic lymph nodes. Ureters: Normal in course and caliber. No calcifications. Bladder: No wall thickening. Reproductive organs: No pelvic masses. Abdominal Wall: Fat identified left inguinal canal. Musculoskeletal: No bone lesions. No degenerative changes. No post operative changes. Diffuse bilateral lower extremity edema. Vessels: Aorta normal in course and caliber. [place] of superior and inferior mesenteric arteries, and celiac artery patent. [place] of single right renal renal artery, left main renal artery, and left accessory artery patent. Portal vein, splenic vein, superior mesenteric vein are patent. On the right side, the right common, internal, and external iliac arteries are patent. The right common, profunda femoral, and superficial femoral arteries are patent. The right popliteal artery is patent. Right anterior tibial, posterior tibial, and peroneal arteries are patent from their origin to the level of the ankle. On the left side, left common, internal, and external iliac arteries are patent. Left common femoral, profunda femoral, and superficial femoral arteries are patent. Left popliteal artery is patent. Left anterior tibial and posterior tibial arteries are patent from their origin to the level of the ankle. Left peroneal artery is patent from its origin to the level of the distal tibia. IMPRESSION: Three-vessel distal runoff, right lower extremity. Two-vessel distal runoff, left lower extremity, the anterior tibial and posterior tibial arteries. Bilateral lower extremity edema. Constipation All CT scans at this facility use dose modulation, iterative reconstruction, and/or weight based dosing when appropriate to reduce radiation dose to as low as reasonably achievable. [employer] Phone: POCT Venouson 12-21-2020 Creatinine [Mass/Vol] 0.7 mg/dL Low 0.9 - 1.3 mg/dL [employer] Phone: GFR >60 >60 [employer] Phone: Comment on above: >60 mL/min/1.73m2 EG FR, calc. for ages 18 and older using the MDRD formula (not corrected for weight), is valid for stable renal function. GFR Non- >60 >60 [employer] Phone: Comment on above: >60 mL/min/1.73m2 EG FR, calc. for ages 18 and older using the MDRD formula (not corrected for weight), is valid for stable renal function. Interpretation and review of laboratory results Abnormal [employer] Phone: Performed on SEE BELOW [employer] Phone: Comment on above: Performed on POC Sample Type KELVIN [employer] Phone: CTA ABDOMINAL AORTA W BILAT RUNOFF W WO CONTRASTon 12-20-2020 CTA ABDOMINAL AORTA W BILAT RUNOFF W WO CONTRAST CTA abdomen, pelvis, bilateral lower extremities, with intravenous contrast medium. 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 Technical Factors: CTA imaging of the abdomen, pelvis, and bilateral lower extremities, were obtained and formatted as 5 mm contiguous axial images from the domes of the diaphragm to the feet. Overlap, and 3-D MIP, sagittal, and coronal reconstructions were also obtained. Oral contrast medium: None. Intravenous contrast medium: Isovue 370, 150 mL, followed by saline infusion. Comparison: None. Findings: Lungs: Lung bases are clear. Liver: Normal in size, shape, and attenuation. Bile Ducts: Normal in caliber. Gallbladder: No stones or wall thickening. Pancreas: Normal without masses, cysts, ductal dilatation or calcification. Spleen: Normal in size without masses or calcifications. No splenules. Kidneys: Normal in size and enhancement. No hydronephrosis, masses, or stones. Adrenals: Normal. Small bowel: Normal in caliber. Appendix: Normal. Colon: Normal in caliber. Copious stool throughout colon. Peritoneum: No ascites, free air, or fluid collections. Lymph nodes: Retroperitoneal: No enlarged retroperitoneal lymph nodes. Mesenteric: No enlarged mesenteric lymph nodes. Pelvic: No enlarged pelvic lymph nodes. Ureters: Normal in course and caliber. No calcifications. Bladder: No wall thickening. Reproductive organs: No pelvic masses. Abdominal Wall: Fat identified left inguinal canal. Musculoskeletal: No bone lesions. No degenerative changes. No post operative changes. Diffuse bilateral lower extremity edema. Vessels: Aorta normal in course and caliber. Ostia of superior and inferior mesenteric arteries, and celiac artery patent. Ostia of single right renal renal artery, left main renal artery, and left accessory artery patent. Portal vein, splenic vein, superior mesenteric vein are patent. On the right side, the right common, internal, and external iliac arteries are patent. The right common, profunda femoral, and superficial femoral arteries are patent. The right popliteal artery is patent. Right anterior tibial, posterior tibial, and peroneal arteries are patent from their origin to the level of the ankle. On the left side, left common, internal, and external iliac arteries are patent. Left common femoral, profunda femoral, and superficial femoral arteries are patent. Left popliteal artery is patent. Left anterior tibial and posterior tibial arteries are patent from their origin to the level of the ankle. Left peroneal artery is patent from its origin to the level of the distal tibia. IMPRESSION: Three-vessel distal runoff, right lower extremity. Two-vessel distal runoff, left lower extremity, the anterior tibial and posterior tibial arteries. Bilateral lower extremity edema. Constipation All CT scans at this facility use dose modulation, iterative reconstruction, and/or weight based dosing when appropriate to reduce radiation dose to as low as reasonably achievable. Interpreted by: Jaguar Cross MD Signed by: Jaguar Cross MD 12/21/20 Final result Normal [facility] POCT Venouson 12-20-2020 Creatinine [Mass/Vol] 0.7 mg/dL Low 0.9-1.3 [facility] Comment on above: Performed By: #### P KELVIN #### [facility] [address] [facility] [address] GFR/1.73 sq M predicted among blacks MDRD (S/P/Bld) [Vol rate/Area] mL/min/{1.73_m2} Normal >60 [facility] Comment on above: Result Comment: >60 mL/min/1.73m2 EGFR, calc. for ages 18 and older using the MDRD formula (not corrected for weight), is valid for stable renal function. Performed By: #### P KELVIN #### [facility] [address] [place] [address] GFR/1.73 sq M.predicted MDRD (S/P/Bld) [Vol rate/Area] mL/min/{1.73_m2} Normal >60 [facility] Comment on above: Result Comment: >60 mL/min/1.73m2 EGFR, calc. for ages 18 and older using the MDRD formula (not corrected for weight), is valid for stable renal function. Performed By: #### P KELVIN #### [facility] [address] [place] [address] POC Performed on SEE BELOW [facility] Comment on above: Result Comment: Perf ormed on POC Performed By: #### P KELVIN #### [facility] [address] [place] [address] POC Sample Type KELVIN Normal [facility] Comment on above: Performed By: #### P KELVIN #### [facility] [address] [facility] [place] [address] Coding Summary.on 01-14-2019 Coding Summary. CODING DATE: 019 FINAL [facility] STATUS: Home (Routine DC) PAYOR: Commercial Insurance APC DESCRIPTION 5052 Level 4 Skin Procedures ADMIT DX: REASON FOR VISIT DX: L98.9 Disorder of the skin and subcutaneous tissue, unspecified FINAL DX: PRINCIPAL: L72.0 Epidermal cyst SECONDARY: E11.9 Type 2 diabetes mellitus without complications I10 Essential (primary) hypertension J45.909 Unspecified asthma, uncomplicated G47.30 Sleep apnea, unspecified K21.9 Gastro-esophageal reflux disease without esophagitis F32.9 Major depressive disorder, single episode, unspecified F17.210 Nicotine dependence, cigarettes, uncomplicated G20 Parkinson's disease D86.9 Sarcoidosis, unspecified G40.909 Epilepsy, unspecified, not intractable, without status epilepticus Z79.4 shelter (current) use of insulin Z79.82 shelter (current) use of aspirin 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 However, the narrative phrase printed from the coding software may appear abbreviated, or result in slightly different terminology. Coded By: Rita Mckeon Date Saved: 01/14/2019 12:54 pm [facility] Inpatient Patient Summaryon 01-08-2019 Inpatient Patient Summary [facility] Clinical Discharge Instructions PERSON INFORMATION Name: [facility]ER [facility]OR [employer] Admitting Physician: Fatoumata Tirado MD Attending Physician: Fatoumata Tirado MD PCP: Fadi Tenorio DO Discharge Diagnosis: Scalp lesion Comment: PATIENT EDUCATION INFORMATION Instructions: Medication Leaflets: Follow up: With: Address: When: Fatoumata Tirado [address] [place] [address], [address] [place] [id number] [facility] () In 8 days 01/16/2019 MEDICATION LIST Comment: [facility] Main OR Intraoperative Recor don 01-08-2019 Main OR Intraoperative Record IntraOp Document Type FT Summary Primary Physician: Fatoumata Tirado MD Finalized Date/Time: 01/08/19 14:23:55 Pt. Name: CHANDLER MINOR Yifan/Sex: 1970 Male Med Rec #: [id number] Physician: Fatoumata Tirado MD Financial #: [id number] Pt. Type: A Room/Bed: Admit/Disch: 01/08/19 07:12:00 - 01/08/19 12:35:00 Institution: Case Times FT Entry 1 Patient Times In Room 01/08/19 09:34:00 Out Room 01/08/19 10:32:00 Procedure Times Start 01/08/19 09:52:00 Stop 01/08/19 10:27:00 Anesthesia Times Start 01/08/19 09:34:00 Stop 01/08/19 10:32:00 Last Modified By: Nunu Asif CST 01/08/19 10:31:47 General Comments: 01/08/19 Chart opened to review and send charges Katrin Asif CST Case Attendance FT Entry 1 Entry 2 Entry 3 Case Attendee Marlo Almazan DO, Luis Tirado MD, Fatoumata Chavez RN, Andrzej Pierre Role Performed Anesthesiologist of Surgeon - Primary Safety Spec - Primary Record Time In 01/08/19 09:34:00 01/08/19 09:44:00 01/08/19 09:34:00 Time Out 01/08/19 10:32:00 01/08/19 10:32:00 01/08/19 10:32:00 Procedure CYST LESION CYST LESION CYST LESION REMOVAL(Left) REMOVAL(Left) REMOVAL(Left) Comments Last Modified By: Demetrius RN, Danielle Romo RN, Danielle Pacheco RN 01/08/19 10:31:49 01/08/19 10:31:49 01/08/19 10:31:49 Entry 4 Entry 5 Case Attendee Demetrius MARTÍNEZ, Danielle Miguel CST, Gary Tao Role Performed Safety Spec - Primary Scrub - Primary Time In 01/08/19 09:34:00 01/08/19 09:34:00 Time Out 01/08/19 10:32:00 01/08/19 10:32:00 Procedure CYST LESION CYST LESION REMOVAL(Left) REMOVAL(Left) Comments Last Modified By: Demetrius MARTÍNEZ, Danielle Pacheco RN 01/08/19 10:31:49 01/08/19 10:31:49 Perioperative Protocols FT Pre-Care Text: Implements protective measures prior to operative or invasive procedure, confirms identity before the operative or invasive procedure, verifies operative procedure, surgical site, and laterality Entry 1 Procedure(s) CYST LESION Patient Identity Birthday, ID Band REMOVAL(Left) Verified (select at Check, Patient least 2): Participation Consents / H and P Anesthesia Consent, Operative Site Present Verified HandP, Surgery/Procedure Marking Verified Consent Surgical Site Yes Laterality Verified Yes Verified Procedure Verified Yes Correct Patient Yes Position Verified Availability Equipment, Medication Prep Dry n/a Verified (If Applicable) PreOp Antibiotic No Time Out Marlo Almazan DO, Luis, Given Participants Candida FLAHERTY, Fatoumata Schwartz, Kathy MARTÍNEZ, Andrzej Pierre, Danielle Romo RN, Barker CST, Gary Tao Time Out Complete 01/08/19 09:49:00 Outcomes Met? Yes Last Modified By: Danielle Romo RN 01/08/19 09:49:38 Post-Care Text: The patient is free from signs and symptoms of injury caused by extraneous objects Allergy Information FT Pre-Care Text: Verifies allergies Entry 1 Allergies Reviewed? Yes Allergies Reviewed Self/Patient With Outcomes Met? Yes Last Modified By: Danielle Romo RN 01/08/19 09:28:57 Post-Care Text: The patient received appropriate medication(s) safely administered during the perioperative period Surgical Procedures FT Entry 1 Procedure Description Procedure CYST LESION REMOVAL Modifiers Left Surgeon Description REMOVAL OF LEFT LATERAL SCALP LESION AND ADVANCEMENT FLAP CLOSURE Primary Procedure Yes Primary Surgeon Candida FLAHERTY, Fatoumata Schwartz Start 01/08/19 09:52:00 Stop 01/08/19 10:27:00 Anesthesia Type General Surgical Service ENT Wound Class 2 - Clean-Contaminated Last Modified By: Danielle Romo RN 01/08/19 10:35:25 General Case Data FT Pre-Care Text: Classifies surgical wound, implements aseptic technique, initiates traffic control Entry 1 Case Information OR OR 2 FT Case Level Level 2 Wound Class 2 - Clean-Contaminated Specialty ENT ASA Class 3 Preop Diagnosis LEFT SCALP LESION Postop Same As Preop No Postop Diagnosis LEFT SCALP EPIDERMOID Outcomes Met? Yes CYST Last Modified By: Nunu Asif CST 01/08/19 14:23:51 Post-Care Text: The patient is free from signs and symptoms of infection Skin Assessment (Pre Procedure) FT Pre-Care Text: Implements protective measures to prevent skin/ tissue injury due to thermal or mechanical sources Evaluates for signs and symptoms of physical injury to skin and tissue Entry 1 Skin Integrity Other/See Comments Skin Abnormality Yes Abnormality Location small abrasion on left Outcomes Met? Yes hand and right shoulder, open sore on left lateral scalp Last Modified By: Danielle Romo RN 01/08/19 09:58:00 Post-Care Text: The patient is free from signs and symptoms of injury caused by extraneous objects General Comments: right upper arm diabetic sensor. Kassidy merchant rn Patient Positioning FT Pre-Care Text: Identifies physical alterations that require additional precautions for procedure-specific positioning, verifies presence of prosthetics or corrective devices, positions the patient, evaluates the patient for signs and symptoms of injury as a result of positioning Entry 1 Procedure CYST LESION Body Position Supine REMOVAL(Left) Feet Uncrossed? Yes Left Arm Position Extended on Padded Arm Board Right Arm Position Extended on Padded Arm Left Leg Position Extended Board Right Leg Position Extended Positioning Device Safety Strap, Padded Armboard, Pillow Under Head Large, Egg Crate Padding, Donut Headrest Press Points Checked Yes By Luis Sellers Jr., DO, Timmis MD, Kathy Quigley RN, Demetrius Dubose RN, Emily A Outcomes Met? Yes Last Modified By: Danielle Romo RN 01/08/19 09:52:56 Post-Care Text: The patient is free from signs and symptoms of injury related to positioning Patient Care Devices FT Pre-Care Text: Implements protective measures to prevent skin/ tissue injury due to thermal or mechanical sources Entry 1 Entry 2 Entry 3 Equipment Type CAUTERY UNIT[F] HEADLIGHT[F] MONITOR CHARGE SURGERY [F] Equipment Number [id number] Equipment Setting Outcomes Met? Yes Yes Yes Last Modified By: Danielle Romo RN, RN, Emily A Coy RN, Emily A 01/08/19 07:32:08 01/08/19 07:32:08 01/08/19 07:32:08 Entry 4 Equipment Type MISTRAL FORCED AIR WARMING SYSTEM UNIT[F] Equipment Number [id number] Equipment Setting Outcomes Met? Yes Last Modified By: Danielle Romo RN 01/08/19 07:32:08 Post-Care Text: The patient is free from signs and symptoms of injury caused by extraneous objects Transport To OR FT Pre-Care Text: Transports according to individual needs. Evaluates for signs and symptoms of skin and tissue injury as a result of transfer or transport Entry 1 Via Cart By Andrzej Chavez RN Safety Precautions Side Rails Up Outcomes Met? Yes Last Modified By: Danielle Romo RN 01/08/19 09:29:10 Post-Care Text: The patient is free from signs and symptoms of injury related to transfer/transport Cautery FT Pre-Care Text: Implements protective measures to prevent injury due to electrical sources, and evaluates for signs and symptoms of electrical injury Entry 1 ESU Identification Equipment Number c4 ESU Settings Cut 0 Coag 15 ESU Grounding Pad Site Left Thigh Hair Removal Pad No Site Pre Pad Site Clear and Intact Post Pad Site Clear and Intact Condition Condition Grounding Pad Andrzej Chavez RN Placed By Outcomes Met? Yes Last Modified By: Danielle Romo RN 01/08/19 09:50:45 Post-Care Text: The patient if free from signs and symptoms of electrical injury Counts Verification FT Pre-Care Text: Performs required counts Entry 1 Entry 2 Procedure(s) CYST LESION CYST LESION REMOVAL(Left) REMOVAL(Left) Type Initial Final Items Sharps Sharps Status Correct Correct Time 01/08/19 09:27:00 01/08/19 10:09:00 By Danielle Romo RN, Barker Krupp RN, Andrea L, REFRIGERATOR REPAIR TECHNICIAN, Gary Miguel CST, Gary Tao Outcomes Met? Yes Yes Last Modified By: Danielle Romo RN, RN, Emily A 01/08/19 10:35:20 01/08/19 10:10:06 Post-Care Text: The patient is free from signs and symptoms of injury caused by extraneous objects Skin Prep FT Pre-Care Text: Performs skin preparations Entry 1 Procedure CYST LESION Prep Area left lateral scalp REMOVAL(Left) Prep Agents Betadine Scrub and Solution Hair Removal Methods Not Indicated By Andrzej Chavez RN Outcomes Met? Yes Last Modified By: Danielle Romo RN 01/08/19 09:51:05 Post-Care Text: The patient is free from signs and symptoms of infection Departure From OR FT Pre-Care Text: Transports according to individual needs. Evaluates for signs and symptoms of skin and tissue injury as a result of transfer or transport. Entry 1 Via Cart Safety Precautions Side Rails Up PostOp Destination PACU Transported By Andrzej Chavez RN Patient Status Stable Report Given Sugey Oden RN To/Hand Off Communication Skin. Condition Other/See Comments Description left lateral scalp incision, other skin unchanged from previously Airway Maintenance Oxygen in Use? Yes Airway Device Simple Mask Flow Rate 8 L/min Outcomes Met? Yes Last Modified By: Danielle Romo RN 01/08/19 10:35:37 Post-Care Text: The patient is free from signs and symptoms of injury related to transfer/transport General Comments: report given to rn angiography. Kassidy merchant rn Dressing/Packing FT Pre-Care Text: Administers care to wound sites Entry 1 Type Dressing Site and Details BACITRACIN ON LEFT SCALP Outcomes Met? Yes Last Modified By: Danielle Romo RN 01/08/19 10:25:54 Post-Care Text: The patient is free from signs and symptoms of infection Medication Administration FT Pre-Care Text: Verifies allergies, administers prescribed medications and solutions, administers prescribed antibiotic therapy and immunizing agents as ordered, evaluates response to medications Administers prescribed medications and solutions Entry 1 Route of Admin Field Expiration Date Yes Verified Outcomes Met? Yes Last Modified By: Danielle Romo RN 01/08/19 07:32:33 Post-Care Text: The patient received appropriate medication(s) safely administered during the perioperative period For [facility] please see scanned medication reconcilliation form for medications used at the field during the procedure. Cultures and Specimens FT Pre-Care Text: Manages specimen handling and disposition Manages culture specimen collection Entry 1 Cultures Ordered No Specimens Ordered Yes Specimen Disposition Designated OR Area Frozen Section Times Outcomes Met? Yes Last Modified By: Danielle Romo RN 01/08/19 10:10:12 Post-Care Text: The patient is free from signs and symptoms of injury caused by extraneous objects The patient is free from signs and symptoms of infection General Comments: specimen: left scalp lesion. Kassidy merchant rn Temperature Control Entry 1 Temperature Control BLANKET MISTRAL AIR Quantity 1 Aid PLUS LOWER BODY [[id number]][F] Fluid/Grenora Unit Mistral warming system Setting high/43 Body Site Lower anterior torso Last Modified By: Danielle Romo RN 01/08/19 07:32:52 Case Comments Finalized By: Nunu Asif CST Document Signatures Signed By: Danielle Romo RN 01/08/19 10:35 Nunu Asif CST 01/08/19 14:23 Normal [facility] Main OR PACU I Recordon 12-13 Main OR PACU I Record PACU Phase I Docum ent Type FT Summary Primary Physician: Fatoumata Tirado MD Finalized Date/Time: 01/08/19 11:13:30 Pt. Name: CHANDLER MINOR /Sex: 1970 Male Med Rec #: [id number] Physician: Fatoumata Tirado MD Financial #: [id number] Pt. Type: A Room/Bed: [place] [address] Admit/Disch: 01/08/19 07:12:51 - Institution: Case Times PACU I FT Pre-Care Text: Identifies barriers to communication and implements measures to provide psychological support Develops individualized plan of care, and ensures continuity of care Maintains patient's dignity and privacy, and maintains patient confidentiality Identifies and reports philosophical, cultural, and spiritual beliefs and values Identifies individual values and wishes concerning care Implements aseptic technique, and administers prescribed antibiotic therapy and immunizing agents as ordered Evaluates postoperative tissue perfusion Implements thermoregulation measures, and monitors body temperature Evaluates postoperative respiratory status Evaluates postoperative cardiac status Evaluates postoperative neurological status Assesses pain control, collaborated in initiating patient-controlled analgesia and implements alternative methods of pain control Verifies allergies, administers prescribed medications and solutions, evaluates response to medications Entry 1 In PACU I 01/08/19 10:33:00 Discharge from PACU 01/08/19 11:03:00 I Outcomes Met? Yes Last Modified By: Sugey Oden RN 01/08/19 11:02:45 Post-Care Text: The patient demonstrates knowledge of the expected response to the operative or invasive procedure The patient's care is consistent with the individualized perioperative plan of care The patient's right to privacy is maintained The patient's value system, lifestyle, ethnicity, and culture are considered, respected, and incorporated into the perioperative plan of care The patient participates in decisions affecting his or her perioperative plan of care The patient is free from signs and symptoms of infection The patient has wound/tissue perfusion consistent with or improved from baseline levels established preoperatively The patient is at or returning to normothermia at the conclusion of the immediate postoperative period The patient's respiratory function is consistent with or improved from baseline levels established preoperatively The patient's cardiovascular status is consistent with or improved from baseline levels established preoperatively The patient's cardiovascular status is consistent with or improved from baseline levels established preoperatively The patient demonstrates and/or reports adequate pain control throughout the perioperative period The patient received appropriate medication(s), safely administered during the perioperative period Acuity Level PACU I FT Entry 1 Start Time 01/08/19 10:33:00 Stop Time 01/08/19 11:03:00 Acuity Level Acuity Level I Last Modified By: Sugey Oden RN 01/08/19 11:02:58 Finalized By: Sugey Oden RN Document Signatures Signed By: Sugey Oden RN 01/08/19 11:03 Sugey Oden RN 01/08/19 11:13 Normal [facility] Main OR PACU II Recordon Main OR PACU II Record PACU Phase II Doc ument Type FT Summary Primary Physician: Fatoumata Tirado MD Finalized Date/Time: 01/08/19 13:45:23 Pt. Name: KEICHANDLER/Sex: 1970 Male Med Rec #: [id number] Physician: Fatoumata Tirado MD Financial #: [id number] Pt. Type: A Room/Bed: [facility]/ Admit/Disch: 01/08/19 07:12:51 - Institution: Case Times PACU II FT Pre-Care Text: Identifies barriers to communication and implements measures to provide psychological support and determines knowledge level Develops individualized plan of care, and ensures continuity of care Maintains patient's dignity and privacy, and maintains patient confidentiality Identifies and reports philosophical, cultural, and spiritual beliefs and values Identifies individual values and wishes concerning care administers prescribed antibiotic therapy and immunizing agents as ordered, Evaluates postoperative tissue perfusion Implements thermoregulation measures, and monitors body temperature Evaluates postoperative respiratory status Evaluates postoperative cardiac status Evaluates postoperative neurological status Assesses pain control, collaborated in initiating patient-controlled analgesia and implements alternative methods of pain control Verifies allergies, administers prescribed medications and solutions, evaluates response to medications Entry 1 In PACU II 01/08/19 11:10:00 Discharge from PACU 01/08/19 12:35:00 II Outcomes Met? Yes Last Modified By: Ilana Peguero RN 01/08/19 13:43:18 Post-Care Text: The patient demonstrates knowledge of the expected response to the operative or invasive procedure The patient's care is consistent with the individualized perioperative plan of care The patient's right to privacy is maintained The patient's value system, lifestyle, ethnicity, and culture are considered, respected, and incorporated into the perioperative plan of care The patient participates in decisions affecting his or her perioperative plan of care. The patient is free from signs and symptoms of infection The patient has wound/tissue perfusion consistent with or improved from baseline levels established preoperatively The patient is at or returning to normothermia at the conclusion of the immediate postoperative period The patient's respiratory function is consistent with or improved from baseline levels established preoperatively The patient's cardiovascular status is consistent with or improved from baseline levels established preoperatively The patient's neurological status is consistent with or improved from baseline levels established preoperatively The patient demonstrates and/or reports adequate pain control throughout the perioperative period The patient received appropriate medication(s), safely administered during the perioperative period Finalized By: Ilana Peguero RN Document Signatures Signed By: Ilana Peguero RN 01/08/19 13:43 Ilana Peguero RN 01/08/19 13:45 Normal [facility] Main OR Preoperative Recordo n 01-08-2019 Main OR Preoperative Record PreOp Document Type FT Summary Primary Physician: Fatoumata Tirado MD Finalized Date/Time: 01/08/19 09:51:30 Pt. Name: CHANDLER MINOR/Sex: 1970 Male Med Rec #: [id number] Physician: Fatoumata Tirado MD Financial #: [id number] Pt. Type: A Room/Bed: [place] [address] Admit/Disch: 01/08/19 07:12:51 - Institution: Case Times PreOp FT Pre-Care Text: Verifies consent for planned procedure, identifies individual values and wishes concerning care, includes family members in perioperative teaching Entry 1 Patient Times. In Pre Surgery 01/08/19 07:15:00 Out Pre Surgery 01/08/19 09:32:00 Outcomes Met? Yes Last Modified By: Danielle Romo RN 01/08/19 09:51:26 Post-Care Text: The patient participates in decisions affecting his or her perioperative plan of care Finalized By: Danielle Romo RN Document Signatures Signed By: Danielle Romo RN 01/08/19 09:51 Normal [facility] Operative Reporton [id number] Operative Report Date of Surgery: 01/08/2019 SURGEON: Fatoumata Tirado Jr., M.D. PRIMARY CARE PHYSICIAN: Fadi Tenorio D.O. PREOPERATIVE DIAGNOSIS: Left scalp lesion POSTOPERATIVE DIAGNOSIS: Left scalp lesion OPERATION: Removal of left scalp lesion, 5 cm. in greatest dimension, with advancement flap closure ANESTHESIA: General laryngeal mask airway COMPLICATIONS: None FINDINGS: A cystic mass of the left lateral scalp with fistulous tract consistent with the patient's prior diagnosis of ruptured epidermoid cyst and prior excision. INDICATIONS: This 48 year old man initially presented with two left-sided chronically draining lesions of the scalp. He underwent excision last fall, and pathology was consistent with ruptured epidermoid cysts. Unfortunately both lesions recurred and started draining again. This time a decision was made to proceed with staged excision of the cysts with a wider excision. The reason for staging is to facilitate closure as the lesions are relatively close to each other and a wide excision of both would dramatically limit closure of the wound. PROCEDURE: The patient was identified in the Holding Area and taken back to the Operating Room, where he was placed in the supine position. After the induction of general anesthesia, the head was prepped and draped in a sterile fashion. A large elliptical excision was planned around the lesion. It was infiltrated with 5 cc. of Lidocaine 1% with 1:100,000 Epinephrine, and after waiting adequate time for hemostasis a 15 blade knife was used to make an elliptical incision around the lesion and it was carried down to the periosteum of the scalp. The lesion was then removed and carefully examined. There was no evidence of cyst or fistula along the edges of the excision site consistent with complete excision of his lesion. Hemostasis was achieved with electrocautery, and then wide undermining was undertaken on both sides of the excision in order to allow advancement of the flaps. Then the wound was closed with two deep 4-0 Vicryl suture layers and a running 5-0 Prolene stitch. Antibiotic ointment was placed over the wound, and the patient was awakened and taken to the Recovery Room in good condition. Fatoumata Tirado Jr., M.D. aek Dictated: 01/08/2019 #[id number] Typed: 01/08/2019 #[id number] cc: Rosi Barragan Jr. M.D. [facility] Comment on above: Result Comment: Elec tronically Signed By: Fatoumata Tirado MD\.br\Date and Time Signed: 01/08/19 14:38 EDT Operative Report Patient: MELVI MINOR Age: 48 years Sex: Male : 1970 Associated Diagnoses: None Author: Fatoumata Tirado MD Postoperative Information Procedure: r/o scalp lesion and advancement flap closure (5cm length) Preoperative Diagnosis: Scalp lesion ([id number] L98.9, Working, Medical). Postoperative Diagnosis: Scalp lesion ([id number] L98.9, Discharge, Medical). Performed by: Fatoumata Tirado MD. Findings: scalp cyst with fistulous tract. Specimens Removed: scalp lesion. Estimated Blood Loss: 10 ml. Medications Complications: None. [facility] Comment on above: Result Comment: Elec tronically Signed By: Fatoumata Tirado MD\.br\Date and Time Signed: 01/08/19 10:45 EDT Patient Education - Texton 0 01-08-2019 Patient Education - Text [facility] Progress Note-Physicianon Protein mass conc Patient: MELVI MINOR Age: 48 years Sex: Male : 1970 Associated Diagnoses: None Author: Nehemiah Orosco Jr, DO Preoperative Information Time patient last ate or drank:=== (npo 8 hours) Anesthesia history: Patient history: No prior anesthesia problems. Re-evaluation prior to induction: Completed, Initial evaluation reviewed. Review of Systems Respiratory: No shortness of breath. Cardiovascular: No chest pain. Hematology/Lymphatics: No bruising tendency, No bleeding tendency. Health Status Allergies: Allergic Reactions (All) Severe Phenergan- Agitation. Current medications: (Selected) Inpatient Medications Ordered Lactated Ringers IV Minnie 1000 mL 1,000 mL: 1,000 mL, IV, 150 mL/hr, Routine, Start date 01/08/19 7:30:00 EDT, 6.7 hour(s), Total volume (mL): 1,000 Documented Medications Documented Ambien 10 mg Tab: 10 mg = 1 tab(s), Oral, Once a day (at bedtime), PRN for sleep, Refills(s) 0 HumuLIN R KwikPen (Concentrated) human recombinant 500 units/mL subcutaneous solution: 50 unit(s), SubCutaneous, with dinner, Refills(s) 0 Humulin R (Concentrated) 500 units/mL subcutaneous solution: 80 unit(s), SubCutaneous, Daily, am, Refills(s) 0, Blood glucose albuterol HFA 90 mcg/inh MDI: 2 puff(s), Inhalation, QID Shortness of breath or wheezing, Refill(s) 0, Asthma amLODIPine 10 mg Tab: 10 mg = 1 tab(s), Oral, Daily, Refills(s) 0, High blood pressure aspirin 81 mg oral tablet: 81 mg = 1 tab(s), Oral, Daily, Refills(s) 0, Blood Thinner chlorthalidone 25 mg Tab: 25 mg = 1 tab(s), Oral, Daily, Refills(s) 0, High blood pressure fludrocortisone 0.1 mg Tab: 0.1 mg, Oral, Daily, Refills(s) 0, Other (see comment) hydrochlorothiazide 25 mg oral tablet: 25 mg = 1 tab(s), Oral, Daily, Refills(s) 0, diuretic/water pill potassium chloride 10 mEq Cap-ER: 10 mEq = 1 cap(s), Oral, Daily, Refills(s) 0, Prophylaxis ropinirole: 1.5 mg, Oral, TID, Refills(s) 0, Other (see comment) tiZANidine 2 mg Tab: 4 mg = 2 tab(s), Oral, Once a day (at bedtime), Refills(s) 0, Spasm Problem list: All Problems Asthma / SNOMED CT 926222767 / Confirmed Carpal tunnel syndrome / SNOMED CT 85177331 / Confirmed bilateral Depression / SNOMED CT 06609814 / Confirmed Diabetes / SNOMED CT 535742993 / Confirmed Acid reflux / SNOMED CT 227960831 / Confirmed Hypertension / SNOMED CT 3742820217 / Confirmed Scalp lesion / SNOMED CT 5446010706 / Confirmed x2 Migraine headache / SNOMED CT 81826513 / Confirmed Parkinson's disease / SNOMED CT 92553409 / Confirmed Sarcoidosis / SNOMED CT 89954457 / Confirmed Seizure / SNOMED CT 741168520 / Confirmed last July was last seizure- in PACU Sleep apnea / SNOMED CT 698645156 / Confirmed uses CPAP Smoker / SNOMED CT 250381497 / Confirmed Added secondary to documentation in Social History. Histories Past Medical History: No active or resolved past medical history items have been selected or recorded. Family History: No family history items have been selected or recorded. Procedure history: lung biopsy. excision of scalp lesions. Social History Social & Psychosocial Habits Alcohol 12/30/2018 Risk Assessment: Denies Alcohol Use Substance Abuse 12/30/2018 Risk Assessment: Denies Substance Abuse Tobacco 12/30/2018 Tobacco Use: 10 or more cigarettes (1/ Type: Cigarettes Tobacco use per day: 20 Number of years: 20 Previous treatment: Medications Ready to change: No Concerns about tobacco use in household: No Comment: usedd Chantix in past- Quit for 6 months - 12/30/2018 16:05 - Uriah MARTÍNEZ, Zahira . Physical Examination VS/Measurements Respiratory: Lungs are clear to auscultation. Cardiovascular: Normal rate, Regular rhythm. Review / Management Results review Interpretation of Outside Results Chest x-ray results Radiology results ECG interpretation Condition Plan [place] [employer] (ASA) physical status classification: Class III. Anesthetic Preoperative Plan Anesthesia: General. . Anesthetic plan, risks, benefits, and alternatives discussed with the patient and/or family. Risks discussed: nausea, vomiting, headache, sore throat, dental injury, serious complications. Patient verbalized understanding. Communication: face to face with (patient 5 minutes, Pt educated on the importance of smoking cessation.). Normal [facility] Comment on above: Result Comment: Elec tronically Signed By: Nehemiah Orosco Jr, DO\.alva\Date and Time Signed: 01/08/19 16:48 EDT Coding Summary.on 12-31-2018 Coding Summary. CODING DATE: 019 FINAL [facility] STATUS: Home (Routine DC) PAYOR: Commercial Insurance APC DESCRIPTION 5521 Level 1 Imaging without Contrast ADMIT DX: REASON FOR VISIT DX: Z01.818 Encounter for other preprocedural examination FINAL DX: PRINCIPAL: Z01.818 Encounter for other preprocedural examination SECONDARY: L72.9 Follicular cyst of the skin and subcutaneous tissue, unspecified PYMT PROC APC STAT DESCRIPTION DOCTOR NAME DATE NOTE: The code number assigned matches the documented diagnosis and / or procedure in the patient's chart. However, the narrative phrase printed from the coding software may appear abbreviated, or result in slightly different terminology. Coded By: Daina Corado CphT Date Saved: 12/31/2018 01:25 pm Normal [facility] Auto Diffon 12-30-2018 Basophils #/vol (Bld) 0.3 % Normal 0.0-2.0 [facility] Comment on above: Order Comment: Order Added by Discern Expert. Performed By: #### 2 [id number], [id number], [id number] #### [facility] [address] [place] [address] Basophils/Leukocytes Auto Pure number fraction (Bld) 0.0 E9/L Normal 0.0-0.2 [facility] Comment on above: Order Comment: Order Added by Discern Expert. Performed By: #### 2 399192, [id number], [id number] #### [facility] [address] [place] [address] Eosinophils/100 WBC (Bld) 3.9 % Normal 0.0-8.0 [facility] Comment on above: Order Comment: Order Added by Asad Expert. Performed By: #### 2 879848, [id number], [id number] #### [facility] [address] [place] [address] Eosinophils/Leukocytes Auto Pure number fraction (Bld) 0.3 E9/L Normal 0.0-0.5 [facility] Comment on above: Order Comment: Order Added by Asad Expert. Performed By: #### 2 816552, 6693513, [id number] #### [facility] [address] [place] [address] Lymphocytes/100 WBC (Bld) 22.4 % Normal 14.0-50.0 [facility] Comment on above: Order Comment: Order Added by Asad Expert. Performed By: #### 2 490261, [id number], [id number] #### [facility] [address] [place] [address] [place] [address] Lymphocytes/Leukocytes Auto Pure number fraction (Bld) 1.9 E9/L Normal 1.0-4.0 [facility] Comment on above: Order Comment: Order Added by Discern Expert. Performed By: #### 2 823171, 7350094, [id number] #### [facility] [address] [place] [address] Monocytes/100 WBC (Bld) 7.7 % Normal 4.0-14.[address] [facility] Comment on above: Order Comment: Order Added by Discern Expert. Performed By: #### 2 946267, 5585945, [id number] #### [facility] [address] [place] [address] Monocytes/Leukocytes Auto Pure number fraction (Bld) 0.7 E9/L Normal 0.2-1.0 [facility] Comment on above: Order Comment: Order Added by Discern Expert. Performed By: #### 2 556155, 6621441, [id number] #### [facility] [address] [place] [address] Neutrophils/100 WBC (Bld) 65.7 % Normal 36.0-75.0 [facility] Comment on above: Order Comment: Order Added by Discern Expert. Performed By: #### 2 384619, 0661214, [id number] #### [facility] [address] [place] [address] Neutrophils/Leukocytes Auto Pure number fraction (Bld) 5.6 E9/L Normal 2.0-7.5 [facility] Comment on above: Order Comment: Order Added by Discern Expert. Performed By: #### 2 478244, 1085513, [id number] #### [facility] [address] [place] [address] BUNon 12-30-2018 Urea nitrogen mass conc 18 mg/dL Normal 5-[address] [facility] Comment on above: Performed By: #### 2 297339, 5537328, 50367373, 7884261, [id number] #### [facility] [address] [place] [address] CBC w/ Auto Diffon 9 Erythrocyte distribution width Ratio (RBC) 13.1 % Normal 10.9-14.2 [facility] Comment on above: Performed By: #### 2 092069, 5426813, [id number] #### [facility] [address] [place] [address] Hematocrit Volume Fraction (Bld) 39.6 % Normal 37.7-49.0 [facility] Comment on above: Performed By: #### 2 278954, 5330945, 60692714 #### [facility] [address] [place] [address] Hemoglobin mass conc (Bld) 13.7 g/dL Normal 13.5-17.5 [facility] Comment on above: Performed By: #### 2 231750, 3501095, [id number] #### [facility] [address] [place] [address] MCH Entitic mass (RBC) 32.5 pg Normal 27.0-34.0 [facility] Comment on above: Performed By: #### 2 138485, 8829026, [id number] #### [facility] [address] [place] [address] MCHC mass conc (RBC) 34.5 g/dL Normal 33.3-35.7 [facility] Comment on above: Performed By: #### 2 543372, 6086607, [id number] #### [facility] [address] [place] [address] MCV Entitic volume (RBC) 94.1 fL Normal 80.0-100.0 [facility] Comment on above: Performed By: #### 2 395073, 6938814, [id number] #### [facility] [address] [place] [address] Platelet mean volume Entitic volume (Bld) 9.1 fL Normal 6.4-10.8 [facility] Comment on above: Performed By: #### 2 379702, 3512760, [id number] #### [facility] [address] [place] [address] Platelets #/vol (Bld) 229.0 E9/L Normal 150.0- 500. 0 [facility] Comment on above: Performed By: #### 2 063859, 3666581, [id number] #### [facility] [address] [place] [address] RBC #/vol (Bld) 4.2 E12/L Low 4.3-5.9 [facility] Comment on above: Performed By: #### 2 307222, 6931124, 72585542 #### [facility] [address] [place] [id number] WBC corrected for nucl RBC Auto #/vol (Bld) 8.5 E9/L Normal 4.0-11.0 [facility] Comment on above: Performed By: #### 2 164451, 3395963, [id number] #### [facility] [address] [place] [address] Creatinineon 12-30-2018 Creatinine mass conc 0.8 mg/dL Normal 0.5-1.3 [facility] Comment on above: Performed By: #### 2 952241, 9006649, 90095525, 2879210, 8269493 #### [facility] [address] [place] [address] Glucoseon 12-30-2018 Glucose mass conc 214 mg/dL High 55-199 [facility] Comment on above: Performed By: #### 2 451853, 6811778, 86470313, 6176600, 0079298 #### [facility] [address] [place] [address] Lyteson 12-30-2018 Anion gap molar conc 12 mmol/L Normal 6-16 [facility] Comment on above: Performed By: #### 2 994048, 7666271, 28049536, 9671767, 7949325 #### [facility] [address] [place] [address] Chloride molar conc 103 mmol/L Normal 101-111 [facility] Comment on above: Performed By: #### 2 583646, 9381923, 31912838, 0101942, 3662300 #### [facility] [address] [place] [address] CO2 molar conc 24 mmol/L Normal 21-31 [facility] Comment on above: Performed By: #### 2 301559, 0752864, 66650922, 3223575, 9007325 #### [facility] [address] [place] [address] Potassium molar conc 4.0 mmol/L Normal 3.5-5.3 [facility] Comment on above: Performed By: #### 2 737958, 5472028, 86402319, 8365045, 2273800 #### [facility] [address] [place] [address] Sodium molar conc 135 mmol/L Normal 135-145 [facility] Comment on above: Performed By: #### 2 271064, 9700053, 02084969, 1120321, 9284571 #### [facility] [address] [place] [address] PT & PTTon 12-30-2018 aPTT Coag time (PPP) 30.2 second(s) Normal 25.1-36.5 [facility] Comment on above: Result Comment: Hepa rin therapeutic range (represented by Anti-Factor Xa activity of 0.2 - 0.4 U/mL) corresponds to PTT of 56.6 - 109.0 sec. Performed By: #### 2 460790, 1872053, 85915007 #### [facility] [address] [place] [address] INR Coag RelTime (PPP) 1.0 {INR} [facility] Comment on above: Result Comment: INR results are specifically intended to assess patients stabilized on long-term Anticoagulation therapy suggested INR?s ?Less Intensive Anticoagulation? 2.0 ? 3.0 Conventional Range 3.0 ? 4.5 Performed By: #### 2 739311, 0651531, [id number] #### [facility] [address] [place] [address] Prothrombin time (PT) Coag time (PPP) 10.6 second(s) Normal 10.2-12.9 [facility] Comment on above: Performed By: #### 2 333199, 8828239, [id number] #### [facility] [address] [place] [address] XR Chest 2 Viewson 9 XR Chest 2 Views Exam Date/Time: 12/30/2018 16:38 EDT Reason for Exam: Pre Op Report IMPRESSION: NO EVIDENCE OF ACTIVE CHEST DISEASE. CLINICAL HISTORY: Pre Op. Smoker. COMMENT: The heart is normal in size. The mediastinum is unremarkable. The lungs appear clear. No infiltration nor pleural effusion is evident. FINAL REPORT Dictated: 12/30/2018 4:40 pm Jaylen Ariza M.D. Signed (Electronic Signature): 12/30/2018 4:40 pm Signed by: Jaylen Ariza M.D. Transcribed by: ELDON Technologist: BARBARA Normal [facility] eGFRon 12-30-2018 GFR/1.73 sq M predicted among blacks MDRD vol rate/area (S/P/Bld) mL/min/{1.73_m2} Normal >=59 [facility] Comment on above: Order Comment: Order added by Discern Expert. Result Comment: eGFR is race adjusted. AA=. Performed By: #### 2 265289, 8653298, 36689891, 6816490, 9144873 #### [facility] [address] [place] [address] GFR/1.73 sq M predicted among non-blacks MDRD vol rate/area (S/P/Bld) mL/min/{1.73_m2} Normal >=59 [facility] Comment on above: Order Comment: Order added by Discern Expert. Result Comment: Grease Worker del kidney disease could be indicated at eGFR's of less than 60 mL/min/1.73m2. Kidney failure is indicated at less than 15 mL/min/1.73m2. Performed By: #### 2 835987, 4757347, 63617362, 9364622, [id number] #### [facility] [address] [place] [address] No Panel Information [facility] Vital Signs Date Time Vital Sign Value Performing Clinician Facility 09-17-2023 13:00-0500 Body height 170.18 cm Agus Pedroza Other [place] Other 09-17-2023 13:00-0500 Diastolic blood pressure 74 mm[Hg] Agus Pedroza Other [place] Other 09-17-2023 13:00-0500 SaO2% (BldA) [Mass fraction] 98 % Agus Pedroza Other [place] Other 09-17-2023 13:00-0500 Systolic blood pressure 113 mm[Hg] Agus Pedroza Other [place] Other 08-03-2023 11:00-0400 Body temperature 98.6 [degF] DO Christopher Jack Work Phone: [facility] 08-03-2023 11:00-0400 Diastolic blood pressure 79 mm[Hg] DO Christopher Jack Work Phone: [facility] 08-03-2023 11:00-0400 Heart rate 79 /min DO Christopher Jack Work Phone: [facility] 08-03-2023 11:00-0400 Respiratory rate 14 /min DO Christopher Jack Work Phone: [facility] 08-03-2023 11:00-0400 SaO2% (BldA) [Mass fraction] 98 % DO Christopher Fergus Work Phone: [facility] 08-03-2023 11:00-0400 Systolic blood pressure 168 mm[Hg] DO Christopher Fergus Work Phone: [facility] 08-03-2023 05:54-0400 Inhaled oxygen flow rate 2 L/min DO Christopher Jack Work Phone: [facility] 08-02-2023 21:19-0400 Body height 173 cm DO Christopehr Jack Work Phone: [facility] 08-02-2023 21:19-0400 Body mass index (BMI) [Ratio] 28.7 kg/m2 DO Christopher Fergus Work Phone: [facility] 08-02-2023 21:19-0400 Body weight 86 kg DO Christopher Fergus Work Phone: [facility] 08-02-2023 08:01-0400 Diastolic blood pressure 65 mm[Hg] DO Christopher Jack Work Phone: [facility] 08-02-2023 08:01-0400 Heart rate 69 /min DO Christopher Jack Work Phone: [facility] 08-02-2023 08:01-0400 Respiratory rate 15 /min DO Christopher Jack Work Phone: [facility] 08-02-2023 08:01-0400 SaO2% (BldA) [Mass fraction] 97 % DO Christopher Fergus Work Phone: [facility] 08-02-2023 08:01-0400 Systolic blood pressure 96 mm[Hg] DO Christopher Jack Work Phone: [facility] 08-02-2023 07:44-0400 Body temperature 94.5 [degF] DO Christopher Jack Work Phone: [facility] 08-02-2023 04:42-0400 Inhaled oxygen flow rate 99 L/min DO Christopher Fergus Work Phone: [facility] 08-02-2023 04:15-0400 Body height 172.72 cm DO Christopher Jack Work Phone: [facility] 08-02-2023 04:15-0400 Body mass index (BMI) [Ratio] 28.8 kg/m2 DO Christopher Fergus Work Phone: [facility] 08-02-2023 04:15-0400 Body weight 86 kg DO Christopher Jack Work Phone: [facility] 08-02-2023 04:15-0400 SaO2% (BldA) [Mass fraction] 95.1 % DO Christopher Fergus Work Phone: [facility] 05-21-2023 13:30-0400 Body height 170.18 cm Agus Pedroza Other [place] Other 05-21-2023 13:30-0400 Diastolic blood pressure 100 mm[Hg] Agus Pedroza Other [place] Other 05-21-2023 13:30-0400 SaO2% (BldA) [Mass fraction] 98 % Agus Pedroza Other [place] Other 05-21-2023 13:30-0400 Systolic blood pressure 160 mm[Hg] Agus Pedroza Other [place] Other 04-18-2023 16:35-0400 Body temperature 98.3 [degF] DO Fadi House Work Phone: [facility] 04-18-2023 16:35-0400 Diastolic blood pressure 86 mm[Hg] DO Fadi House Work Phone: [facility] 04-18-2023 16:35-0400 Heart rate 89 /min DO Fadi House Work Phone: [facility] 04-18-2023 16:35-0400 Respiratory rate 16 /min DO Fadi House Work Phone: [facility] 04-18-2023 16:35-0400 SaO2% (BldA) [Mass fraction] 97 % DO Fadi House Work Phone: [facility] 04-18-2023 16:35-0400 Systolic blood pressure 131 mm[Hg] DO Fadi House Work Phone: [facility] 04-18-2023 06:00-0400 Body weight 104.6 kg DO Fadi House Work Phone: [facility] 04-18-2023 04:00-0400 Inhaled oxygen flow rate 2 L/min DO Fadi House Work Phone: [facility] 04-16-2023 11:15-0400 Body height 167.64 cm DO Fadi House Work Phone: [facility] 05-16-2022 14:30-0400 Body height 170.18 cm Tondra Mapus Other [place] Other 05-16-2022 14:30-0400 Diastolic blood pressure 108 mm[Hg] Tondra Mapus Other [place] Other 05-16-2022 14:30-0400 Respiratory rate 18 /min Tondra Mapus Other [place] Other 05-16-2022 14:30-0400 SaO2% (BldA) [Mass fraction] 98 % Tondra Mapus Other [place] Other 05-16-2022 14:30-0400 Systolic blood pressure 155 mm[Hg] Tondra Mapus Other [place] Other 04-22-2022 00:30-0400 Diastolic blood pressure 64 mm[Hg] DO Fadi House Work Phone: [facility] 04-22-2022 00:30-0400 Heart rate 82 /min DO Fadi House Work Phone: [facility] 04-22-2022 00:30-0400 Respiratory rate 18 /min DO Fadi House Work Phone: [facility] 04-22-2022 00:30-0400 SaO2% (BldA) [Mass fraction] 100 % DO Fadi House Work Phone: [facility] 04-22-2022 00:30-0400 Systolic blood pressure 129 mm[Hg] DO Fadi House Work Phone: [facility] 04-21-2022 21:09-0400 Body height 167.64 cm DO Fadi House Work Phone: [facility] 04-21-2022 21:09-0400 Body mass index (BMI) [Ratio] 37.1 kg/m2 DO Fadi House Work Phone: [facility] 04-21-2022 21:09-0400 Body temperature 97.8 [degF] DO Fadi House Work Phone: [facility] 04-21-2022 21:09-0400 Body weight 104.32 kg DO Fadi House Work Phone: [facility] 03-07-2022 11:50-0400 Diastolic blood pressure 80 mm[Hg] Fadi P House Work Phone: [facility] DO Work Phone: 03-07-2022 11:50-0400 Heart rate 84 /min Fadi P House Work Phone: [facility] DO Work Phone: 03-07-2022 11:50-0400 Systolic blood pressure 100 mm[Hg] Fadi P House Work Phone: [facility] DO Work Phone: 02-14-2022 14:41-0400 Body height 167.64 cm Fadi P House Work Phone: [facility] DO Work Phone: 02-14-2022 14:41-0400 Body mass index (BMI) [Ratio] 36.64 kg/m2 Fadi P House Work Phone: [facility] DO Work Phone: 02-14-2022 14:41-0400 Body surface area Derived from formula 2.11 m2 Fadi P House Work Phone: [facility] DO Work Phone: 02-14-2022 14:41-0400 Body weight 102.97 kg Fadi P House Work Phone: [facility] DO Work Phone: 02-14-2022 14:41-0400 Diastolic blood pressure 90 mm[Hg] Fadi P House Work Phone: [facility] DO Work Phone: 02-14-2022 14:41-0400 Heart rate 84 /min Fadi P House Work Phone: [facility] DO Work Phone: 02-14-2022 14:41-0400 Systolic blood pressure 160 mm[Hg] Fadi P House Work Phone: [facility] DO Work Phone: 02-14-2022 14:41-0400 8 1 Fadi P House Work Phone: [facility] DO Work Phone: Comment on above: PHQ-9 TS 02-06-2022 12:00-0400 Body height 170.18 cm Mika Das Other [place] Other 02-06-2022 12:00-0400 Body mass index (BMI) [Ratio] 36.33 kg/m2 Tondra Mapus Other [place] Other 02-06-2022 12:00-0400 Body weight 105.24 kg Tondra Mapus Other [place] Other 01-22-2022 11:15-0400 Body height 170.18 cm Tondra Mapus Other [place] Other 01-22-2022 11:15-0400 Body mass index (BMI) [Ratio] 36.65 kg/m2 Tondra Mapus Other [place] Other 01-22-2022 11:15-0400 Body weight 106.14 kg Tondra Mapus Other [place] Other 01-22-2022 11:15-0400 Diastolic blood pressure 84 mm[Hg] Tondra Mapus Other [place] Other 01-22-2022 11:15-0400 Respiratory rate 20 /min Tondra Mapus Other [place] Other 01-22-2022 11:15-0400 SaO2% (BldA) [Mass fraction] 99 % Tondra Mapus Other [place] Other 01-22-2022 11:15-0400 Systolic blood pressure 136 mm[Hg] Tondra Mapus Other [place] Other 01-19-2022 15:45-0400 Body height 170.18 cm Fadi P House Work Phone: [facility] DO Work Phone: 01-19-2022 15:45-0400 Diastolic blood pressure 106 mm[Hg] Fadi P House Work Phone: [facility] DO Work Phone: 01-19-2022 15:45-0400 Heart rate 76 /min Fadi P House Work Phone: [facility] DO Work Phone: 01-19-2022 15:45-0400 Systolic blood pressure 184 mm[Hg] Fadi P House Work Phone: [facility] DO Work Phone: 01-19-2022 15:45-0400 12 1 Fadi P House Work Phone: [facility] DO Work Phone: Comment on above: PHQ-9 TS 01-12-2022 11:50-0400 Body temperature 97.5 [degF] DO Fadi House Work Phone: [facility] 01-12-2022 11:50-0400 Diastolic blood pressure 91 mm[Hg] DO Fadi House Work Phone: [facility] 01-12-2022 11:50-0400 Heart rate 82 /min DO Fadi House Work Phone: [facility] 01-12-2022 11:50-0400 Respiratory rate 20 /min DO Fadi House Work Phone: [facility] 01-12-2022 11:50-0400 SaO2% (BldA) [Mass fraction] 98 % DO Fadi House Work Phone: [facility] 01-12-2022 11:50-0400 Systolic blood pressure 151 mm[Hg] DO Fadi House Work Phone: [facility] 01-12-2022 05:51-0400 Body weight 104.8 kg DO Fadi House Work Phone: [facility] 01-11-2022 15:11-0400 Body height 167.64 cm DO Fadi House Work Phone: [facility] 01-11-2022 11:13-0400 Inhaled oxygen flow rate 2.5 L/min DO Fadi Tenorio Work Phone: [facility] 01-10-2022 22:17-0400 Body mass index (BMI) [Ratio] 37.1 kg/m2 DO Fadi Tenorio Work Phone: [facility] 01-10-2022 20:30-0400 Diastolic blood pressure 72 mm[Hg] DO Fadi Tenorio Work Phone: [facility] 01-10-2022 20:30-0400 Heart rate 90 /min DO Fadi Tenorio Work Phone: [facility] 01-10-2022 20:30-0400 Respiratory rate 18 /min DO Fadi Tenorio Work Phone: [facility] 01-10-2022 20:30-0400 SaO2% (BldA) [Mass fraction] 96 % DO Fadi Tenorio Work Phone: [facility] 01-10-2022 20:30-0400 Systolic blood pressure 151 mm[Hg] DO Fadi Tenorio Work Phone: [facility] 01-10-2022 13:34-0400 Body height 167.64 cm DO Fadi Tenorio Work Phone: [facility] 01-10-2022 13:34-0400 Body mass index (BMI) [Ratio] 37.1 kg/m2 DO Fadi Tenorio Work Phone: [facility] 01-10-2022 13:34-0400 Body temperature 97.8 [degF] DO Fadi House Work Phone: [facility] 01-10-2022 13:34-0400 Body weight 104.32 kg DO [employer] Work Phone: [facility] 01-02-2022 14:30-0400 Body height 170.18 cm Agus Pedroza Other [place] Other 01-02-2022 14:30-0400 Diastolic blood pressure 88 mm[Hg] Agus Pedroza Other [place] Other 01-02-2022 14:30-0400 SaO2% (BldA) [Mass fraction] 99 % Agus Pedroza Other [place] Other 01-02-2022 14:30-0400 Systolic blood pressure 120 mm[Hg] Agus Pedroza Other [place] Other 08-29-2021 15:30-0500 Body height 170.18 cm Nury Martin Other [place] Other 07-10-2021 14:00-0400 Body height 170.18 cm Sameh Rizkalla Other [place] Other 07-10-2021 14:00-0400 Diastolic blood pressure 80 mm[Hg] Sameh Rizkalla Other [place] Other 07-10-2021 14:00-0400 SaO2% (BldA) [Mass fraction] 99 % Sameh Rizkalla Other [place] Other 07-10-2021 14:00-0400 Systolic blood pressure 130 mm[Hg] Sameh Rizkalla Other [place] Other 12-29-2020 08:20-0400 Pulse (Heart Rate) 85 /min [employer] Phone: 12-29-2020 08:10-0400 Body Temperature 98.1 [degF] [employer] Phone: 12-29-2020 08:10-0400 BP Diastolic 79 mm[Hg] [employer] Phone: 12-29-2020 08:10-0400 BP Systolic 155 mm[Hg] [employer] Phone: 12-29-2020 08:10-0400 Pulse Oximetry 100 % [employer] Phone: 12-29-2020 08:10-0400 Respiratory Rate 18 /min [employer] Phone: 12-28-2020 11:45-0400 BMI (Body Mass Index) 47.45 kg/m2 [employer] Phone: 12-28-2020 11:45-0400 Body weight 133.36 kg [employer] Phone: 12-28-2020 11:45-0400 Height 167.6 cm [employer] Phone: Encounters Encounter Date Encounter Type Care Provider Facility Start: 09-17-2023 End: 09-17-2023 ambulatory Agus Pedroza Other [facility] Other Start: 09-17-2023 Office outpatient vi sit 15 minutes Agus Pedrzoa [facility] Start: 09-11-2023 End: 09-12-2023 ambulatory UNKNOWN PROVIDER Facility:[facility] Start: 09-11-2023 End: 09-11-2023 Office outpatient visit 15 minutes Demetri Frank MD Work Phone: [facility] Comment on above: 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, unspecified proliferative retinopathy type (HCC) (Primary Dx) Start: 08-28-2023 End: 08-29-2023 ambulatory FADI P COBY Facility:[facility] Start: 08-02-2023 End: 08-03-2023 ambulatory Radha Bell Facility:[facility] Start: 08-02-2023 End: 08-03-2023 Evaluation and management of inpatient DO Christopher Jack Work Phone: [facility] Work Phone: Start: 08-02-2023 End: 08-03-2023 observation encounter DO Christopher Jack Work Phone: [facility] Work Phone: Start: 08-02-2023 Non-patient / Non-visit DO Ramos on Fergus Work Phone: [facility] Start: 07-25-2023 End: 07-26-2023 ambulatory FADI P COBY Facility:[facility] Start: 07-24-2023 End: 07-24-2023 ambulatory UNKNOWN PROVIDER Facility:[facility] Start: 07-24-2023 End: 07-24-2023 Office outpatient visit 15 minutes Demetri Frank MD Work Phone: [facility] Comment on above: 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, unspecified proliferative retinopathy type (HCC) (Primary Dx) Start: 2023 End: 07-12-2023 ambulatory FADI P COBY Facility:[facility] Start: 06-26-2023 End: 09-25-2023 ambulatory UNKNOWN PROVIDER Facility:[facility] Start: 06-26-2023 End: 06-26-2023 Office outpatient visit 15 minutes Demetri Frank MD Work Phone: [facility] Comment on above: 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 Start: 05-21-2023 End: 05-21-2023 ambulatory Agus Pedroza Other [place] Other Start: 05-21-2023 Office outpatient ne w 30 minutes Agus Pedroza [facility] Start: 05-07-2023 End: 05-07-2023 ambulatory Mika Das Other [place] Other Start: 05-07-2023 Telephone encounter Mika [facility] Start: 04-16-2023 End: 04-18-2023 Evaluation and management of inpatient Fadi Coby Facility:[facility] Start: 04-15-2023 End: 04-18-2023 Evaluation and management of inpatient DO Fadi Tenorio Work Phone: [facility] [place] [facility] Work Phone: Start: 04-11-2023 End: 04-11-2023 ambulatory Eliud Eve Other [place] Other Start: 04-11-2023 Telephone encounter Eliud Eve [facility] Start: 04-10-2023 End: 04-10-2023 ambulatory Eliud Eve Other [place] Other Start: 04-10-2023 Telephone encounter Eliud Eve [facility] Start: 03-03-2023 End: 03-09-2023 Evaluation and management of inpatient DR MURRAY YEBOAH Facility:[facility] Start: 02-04-2023 Rx Renewal Fadi P Shital higuera Work Phone: [facility] [address] DO Work Phone: Start: 01-31-2023 End: 01-31-[address] FADI TENORIO Facility:[facility] Start: 01-21-2023 End: 01-21-2023 ambulatory Tondra Mapus Other [place] Other Start: 01-21-2023 Telephone encounter Tondra Mapus [facility] Start: 01-15-2023 End: 01-15-2023 ambulatory Fadi Cotati [place] Other Start: 01-15-2023 Telephone encounter Tondra Mapus [facility] Start: 01-11-2023 End: 01-11-2023 ambulatory Tondra Mapus Other [place] Other Start: 01-11-2023 Telephone encounter Tondra Mapus [facility] Start: 01-01-2023 End: 01-01-2023 ambulatory UNKNOWN PROVIDER [place] Other Start: 01-01-2023 Telephone encounter Tondra Mapus [facility] Start: 12-19-2022 End: 12-19-2022 ambulatory UNKNOWN PROVIDER Facility:[facility] Start: 12-19-2022 End: 12-19-2022 Office outpatient visit 15 minutes Demetri Frank MD Work Phone: [facility] Comment on above: 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, unspecified proliferative retinopathy type (HCC) (Primary Dx) Start: 10-17-2022 End: 10-17-2022 Office outpatient visit 15 minutes Demetri Frank MD Work Phone: [facility] Comment on above: 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, unspecified proliferative retinopathy type (HCC) (Primary Dx) Start: 10-03-2022 End: 10-04-2022 Evaluation and management of inpatient DR FADI TENORIO Facility: Start: 10-01-2022 End: 10-01-2022 ambulatory Tondra Mapus Other [place] Other Start: 10-01-2022 Telephone encounter [facility]ondra Mapus [facility] Start: 09-03-2022 End: 09-03-2022 ambulatory VJ HADDAD II Facility:[facility] Start: 09-03-2022 Encounter for genera l adult medical examination without abnormal findings VJ HADDAD II [facility] Start: 09-03-2022 End: 09-03-2022 Patient encounter procedure Vj Haddad OD Work Phone: Optometry Comment on above: Disability examinati on (Primary Dx); 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, unspecified whether assisted insulin use (HCC); Type 2 diabetes mellitus with proliferative diabetic retinopathy of left eye without macular edema, unspecified whether moth exterminator insulin use (HCC); Myopia, bilateral; Regular astigmatism, bilateral; Presbyopia Start: 08-28-2022 End: 08-28-2022 ambulatory Tondra Mapus Other [place] Other Start: 08-28-2022 Telephone encounter Tondra Mapus [facility] Start: 08-27-2022 End: 08-27-2022 ambulatory Tondra Mapus Other [place] Other Start: 08-27-2022 Telephone encounter Tondra Mapus [facility] Start: 08-16-2022 End: 08-16-2022 ambulatory Tondra Mapus Other [place] Other Start: 08-16-2022 Telephone encounter Tondra Mapus [facility] Start: 07-31-2022 End: 07-31-[address] FADI TENORIO Facility: Start: 05-16-2022 (DM) Diabetes Tondra Mapus [facility] Start: 05-16-2022 End: 05-16-2022 ambulatory Tondra Mapus Other [place] Other Start: 04-21-2022 End: 04-22-2022 Emergency department patient visit DO Fadi House Work Phone: [facility] Start: 04-18-2022 End: 04-18-2022 ambulatory Tondra Mapus Other [place] Other Start: 04-18-2022 Telephone encounter Tondra Mapus [facility] Start: 03-21-2022 End: 03-21-2022 Office outpatient visit 15 minutes Demetri Frank MD Work Phone: [facility] Comment on above: 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, unspecified proliferative retinopathy type (HCC) (Primary Dx) Start: 03-13-2022 End: 03-13-2022 ambulatory Tondra Mapus Other [place] Other Start: 03-13-2022 Telephone encounter Tondra Mapus [facility] Start: 03-08-2022 Registered Recurring DO Carlos A ahmadi House Work Phone: [facility] Start: 03-08-2022 (RD) Art Glass Designer Jazzmine Dukes [facility] Start: 03-08-2022 End: 03-08-2022 ambulatory Jazzmine Dukes Other [place] Other Start: 03-07-2022 End: 03-07-2022 ambulatory Tondra Mapus Other [place] Other Start: 03-07-2022 Telephone encounter Tondra Mapus [facility] Start: 03-07-2022 Office outpatient vi sit 15 minutes Fadi P House Work Phone: [facility] [address] DO Work Phone: Start: 02-19-2022 End: 02-19-2022 ambulatory Tondra Mapus Other [place] Other Start: 02-19-2022 Telephone encounter Tondra Mapus [facility] Start: 02-14-2022 End: 02-14-2022 ambulatory Tondra Mapus Other [place] Other Start: 02-14-2022 Telephone encounter Tondra Mapus [facility] Start: 02-12-2022 Telephone encounter Agustin arzate MD Work Phone: [facility] Comment on above: Other sympt/complt o f eye Start: 02-06-2022 End: 02-06-2022 ambulatory Tondra Mapus Other [place] Other Start: 02-06-2022 Nursing evaluation o f patient and report Tondra Mapus [facility] Start: 02-06-2022 Registered Recurring DO Carlos A s House Work Phone: [facility] Start: 01-26-2022 End: 01-26-2022 ambulatory Tondra Mapus Other [place] Other Start: 01-26-2022 Nursing evaluation o f patient and report Tondra Mapus [facility] Start: 01-22-2022 (DM) Diabetes Tondra Mapus [facility] Start: 01-22-2022 End: 01-22-2022 ambulatory Tondra Mapus Other [place] Other Start: 01-19-2022 Tobacco use cessatio n intermediate 3-10 minutes Fadi P House Work Phone: -[facility] [address] DO Work Phone: Start: 01-11-2022 End: 01-12-2022 Evaluation and management of inpatient DO Fadi House Work Phone: [facility] [place] [facility] Start: 01-10-2022 End: 01-12-2022 Evaluation and management of inpatient DO Fadi Tenorio Work Phone: [facility] [place] [facility] Start: 01-02-2022 End: 01-02-2022 ambulatory Agus Pedroza Other [place] Other Start: 01-02-2022 Office outpatient vi sit 10 minutes Agus Pedroza [facility] Start: 08-29-2021 End: 08-29-2021 ambulatory Nury Ginty Other [place] Other Start: 08-29-2021 Office outpatient vi sit 15 minutes Nury Ginty [facility] Start: 08-09-2021 End: 08-09-2021 ambulatory Tondra Mapus Other [place] Other Start: 08-09-2021 Telephone encounter Tondra Shayneus [facility] Start: 07-21-2021 End: 07-21-2021 ambulatory Tondra Mapus Other [place] Other Start: 07-21-2021 Telephone encounter Tondra Shayneus [facility] Start: 07-20-2021 [facility] visit new patient Mika Das [facility] Start: 07-10-2021 Office outpatient vi sit 15 minutes Libertad Mela [facility] Start: 12-28-2020 End: 12-29-2020 Evaluation and management of inpatient SR AFDI TENORIO [facility] Start: 12-28-2020 End: 12-28-2020 Patient encounter procedure AARON FRIEND [facility] Start: 12-28-2020 End: 12-29-2020 Evaluation and management of inpatient Kole Koehler Work Phone: [facility] Telemetry Comment on above: Peripheral vascular occlusive disease (HCC) (Primary Dx); Renal insufficiency Start: 12-28-2020 End: 12-28-2020 Subsequent hospital visit by physician Aaron Friend Work Phone: [facility] Comment on above: Arrived Start: 12-20-2020 End: 12-23-2020 Patient encounter procedure AARON FRIEND [facility] Start: 12-20-2020 End: 12-22-2020 Subsequent hospital visit by physician [facility] Room 2 [facility] [address] Scan Comment on above: 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) Start: 01-08-2019 End: 01-08-2019 Patient encounter procedure Fatoumata YbarraCirilo Candida Facility:[facility] Start: 12-30-2018 End: 12-31-2018 Patient encounter procedure Fatoumata Tirado Facility:[facility] Procedures Date Procedure Procedure Detail Performing Clinician Start: 09-11-2023 Computerized ophthal yomi imaging retina Maddie Lau MD Work Phone: Start: 09-11-2023 Intravitreal njx pharmacologic agt spx Demetri Frank MD Work Phone: Start: 07-24-2023 Computerized ophthal yomi imaging retina Demetri Frank MD Work Phone: Start: 06-26-2023 Computerized ophthal yomi imaging retina Demetri Frank MD Work Phone: Start: 06-26-2023 Intravitreal njx pharmacologic agt spx Demetri Frank MD Work Phone: Start: 04-16-2023 CT of abdomen and pe lvis without contrast DO Fadi Cotati Work Phone: Start: 01-08-2023 Computerized ophthal yomi imaging retina Maddie Lau MD Work Phone: Start: 01-01-2023 End: 01-08-2023 Oph medical xm&eval comprhnsv estab pt 1/> Diabetes mellitus with insulin therapy (HCC) 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 on above: Diabetes mellitus wi th insulin therapy (HCC) (Primary Dx); 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 to underlying condition (HCC); Acute viral conjunctivitis of both eyes Start: 12-19-2022 Treatment extensive retinopathy photocoagulation Hema Lees MD Work Phone: Start: 12-19-2022 End: 12-19-2022 Fundus photography w/interpretation & report Hema Lees MD Work Phone: Start: 10-17-2022 Computerized ophthal yomi imaging retina Demetri Frank MD Work Phone: Start: 10-17-2022 Intravitreal njx pharmacologic agt spx Demetri Frank MD Work Phone: Start: 09-03-2022 End: 09-03-2022 Computerized ophthalmic imaging retina Vj Ybarra Osmani OD Work Phone: Start: 03-21-2022 Intravitreal njx pharmacologic agt spx Demetri Frank MD Work Phone: Start: 03-21-2022 Computerized ophthal yomi imaging retina Demetri Frank MD Work Phone: Start: 01-11-2022 CL LHC & COR Angio DO [facility] Work Phone: Start: 01-10-2022 Duplex scan of lower limb veins DO Fadi Cotati Work Phone: Start: 01-10-2022 CT of head without contrast DO [facility] Work Phone: Start: 01-10-2022 SARS Antigen (LFIA) DO [facility] Work Phone: Start: 01-10-2022 Plain chest X-ray DO [facility] Work Phone: Start: 12-29-2020 Gluc bld gluc mntr d ev cleared fda spec home use Unknown Provider Result Start: 12-29-2020 WOUND OSTOMY EVAL AND TREAT Kaiser Galarza Work Phone: Start: 12-29-2020 Gluc bld gluc mntr d ev cleared fda spec home use Unknown Provider Result Start: 12-29-2020 Blood count complete auto&auto difrntl wbc [facility] Work Phone: Start: 12-28-2020 Gluc bld gluc mntr d ev cleared fda spec home use Unknown Provider Result Start: 12-28-2020 Antibody screen Kole campo Start: 12-28-2020 COVID-19, RAPID Cece Chauhan Work Phone: Start: 12-28-2020 Prothrombin time Cece Chauhan Work Phone: Start: 12-28-2020 Thromboplastin time partial plasma/whole blood Cece Chauhan Work Phone: Start: 12-28-2020 Basic metabolic pane l calcium total Cece Matthew Gissel Work Phone: Start: 12-28-2020 Blood count complete auto&auto difrntl wbc Cece Chauhan Work Phone: Start: 12-28-2020 Blood typing serologic abo Cece Matthew Gissel Work Phone: Start: 12-20-2020 Cta abdl aorta&bi il iofem w/contrast&postp Lleowell Phuc Work Phone: Start: 12-20-2020 POCT VENOUS Unknown Pr ovider Result Start: 01-13-2019 Anesthesia consultation Fatoumata Tirado Start: 01-08-2019 Anesthesia consultation Fatoumata Tirado Start: 10-14-2011 Total colonoscopy Charl guille P [employer] Work Phone: Amputation of lower limb Neeta rles P [employer] Work Phone: Placement of stent i n coronary artery Fadi Neves [employer] Work Phone: Surgical procedure Fadi Neves [employer] Work Phone: Plan of Treatment Date Care Activity Detail Author Start: 04-09-2026 DTaP/Tdap/Td vaccine (2 - Td) DTaP/Tdap/Td vaccine (2 - Td) [employer] Work Phone: Start: 04-09-2026 [facility] Start: 12-14-2024 LIPID SCREEN LIPID SCREEN [facility] Start: 11-06-2024 Glaucoma screening [facility]am [facility] Start: 09-11-2024 Glaucoma screening Eye Exam [facility] Start: 08-03-2024 Creatinine measurement Basic Metabol [facility] Start: 08-02-2024 Lipid panel Lipid Profile [facility] Start: 07-24-2024 Diabetic retinal eye exam [facility] Start: 06-06-2024 Creatinine measurement Basic Metabol ic Panel [facility] Start: 05-27-2024 Lipid panel Lipid Profile [facility] Start: 02-21-2024 Diabetic retinal eye exam [facility] Start: 02-01-2024 Hemoglobin A1c measurement Hemoglobin A1C [facility] Start: 12-20-2023 Diabetic retinal eye exam [facility] Start: 11-29-2023 Hemoglobin A1c measurement Hemoglobin A1C [facility] Start: 11-06-2023 End: 11-06-2023 Patient encounter procedure 11/06/2023 3:00 PM EST [facility] [address] [place] [address] Demetri Frank MD [address] [facility] [place] [address] Client Application Support Specialist, Eye [facility] Start: 10-17-2023 Diabetic retinal [facility] Start: 09-11-2023 End: 09-11-2023 Patient encounter procedure 09/11/2023 3:00 PM EST [facility] [address] [place] [address] Demetri Frank MD [address] [place] [address] Client Application Support Specialist, [facility] Start: 08-06-2023 Basic metabolic 2000 panel - Serum or Plasma Basic Metabolic Panel [facility] Start: 08-03-2023 Patient status observation [facility] Start: 08-03-2023 Patient discharge [facility] Start: 08-02-2023 Bacteria identified in Blood by Culture Blood Culture [facility] Start: 08-02-2023 Microbial culture Blood Culture [facility] Start: 08-02-2023 Evaluation procedure So [facility] Start: 08-02-2023 Hospital admission William [facility] Start: 08-02-2023 [facility] Start: 08-02-2023 [facility] Start: 08-02-2023 EKG 12 channel panel So [facility] Start: 08-02-2023 Administrative procedure [facility] Start: 06-14-2023 Influenza vaccination Influenza Vacc ine (#1) [facility] Start: 04-18-2023 [facility] Start: 04-18-2023 [facility] Start: 04-16-2023 Referral to manager scientific [facility] Start: 04-16-2023 Hospital admission [facility] Start: 04-15-2023 Sleep disorder assessment [facility] Start: 04-03-2023 Hemoglobin A1c measurement Hemoglobin A1C [facility] Start: 03-21-2023 Diabetic retinal eye exam [facility] Start: 02-20-2023 End: 02-20-2023 Patient encounter procedure 02/20/2023 Office Visit Ophthalmology Demetri Frank MD [address] [place] [address] Client Application Support Specialist, [facility] Start: 01-11-2023 Lipid panel Lipid Profile [facility] Start: 10-20-2022 Diabetic retinal eye exam [facility] Start: 07-28-2022 Basic metabolic 2000 panel - Serum or Plasma Basic Metabolic Panel [facility] Start: 07-14-2022 Influenza vaccination Influenza Vacc ine (#1) [facility] Start: 07-13-2022 Hemoglobin A1c measurement Hemoglobin A1C [facility] Start: 06-14-2022 Influenza vaccination INFLUENZA (#1) [facility] Start: 05-02-2022 End: 05-02-2022 Patient encounter procedure 05/02/2022 Office Visit Ophthalmology Demetri Frank MD [address] [place] [address] Client Application Support Specialist, [facility] Start: 04-21-2022 Plain chest X-ray XR chest 2V* [facility] Start: 04-18-2022 FUV, Provider: Aicha Terrazas, Status: Pen, Time: 2:30 PM FUV, Provider: Aicha Terrazas, Status: Pen, Time: 2:30 PM [facility] [address] DO Work Phone: Start: 03-21-2022 End: 03-21-2022 Patient encounter procedure 03/21/2022 Office Visit Ophthalmology Demetri Frank MD [address] [place] [address] [facility] Start: 02-12-2022 FUV, Provider: Aicha Terrazas, Status: Pen, Time: 1:00 PM FUV, Provider: Aicha Terrazas, Status: Pen, Time: 1:00 PM [facility] [address] DO Work Phone: Start: 01-20-2022 Hemoglobin A1c measurement Hemoglobin A1C [facility] Start: 01-10-2022 Duplex scan of lower limb veins US venous duplex LE BI [facility] Start: 01-10-2022 Fluoroscopy of Left Heart using Low Osmolar Contrast Fluoroscopy of Left Heart using Low Osmolar Contrast [facility] Start: 01-10-2022 Fluoroscopy of Multi ple Coronary Arteries using Low Osmolar Contrast Fluoroscopy of Multiple Coronary Arteries using Low Osmolar Contrast [facility] Start: 01-10-2022 Measurement of Cardi ac Sampling and Pressure, Left Heart, Percutaneous Approach Measurement of Cardiac Sampling and Pressure, Left Heart, Percutaneous Approach [facility] Start: 12-29-2021 Creatinine measurement Creatinine mo nitoring [facility] Work Phone: Start: 12-29-2021 Potassium monitoring Potassium monit [facility] Work Phone: Start: 10-14-2021 DEPRESSION ASSESSMENT DEPRESSION ASS [facility] Start: 2021 Measurement of occul t blood in single stool specimen FIT [facility] Start: 2021 Screening for malign ant neoplasm of colon [facility] Start: 2021 Shingles (RZV) Vacci ne (1 of 2) Shingles (RZV) Vaccine (1 of 2) [facility] Start: 2021 SHINGRIX VACCINE (1 of 2) SHINGRIX VACCINE (1 of 2) [facility] Start: 12-28-2020 End: 12-28-2020 Appointment 12/28/2020 Appointment IP Unit Cardiac Cath Services Start: 12-14-2020 Lipid panel Lipid Profile [facility] Start: 2016 COLOGUARD (FIT-DNA) COLOGUARD (FIT-D NA) [facility] Start: 2016 Colonoscopy COLONOSCOPY [facility] Start: 2016 COLORECTAL CANCER SCREENING COLORECTAL CANCER SCREENING [facility] Start: [address] COLONOGRAPHY [facility] Start: 2016 DIABETES SCREEN DIABETES SCREEN [facility] Start: 2016 FECAL OCCULT BLOOD FECAL OCCULT BLOO D [facility] Start: 2016 Screening for malign ant neoplasm of colon [facility] Start: 2016 SIGMOIDOSCOPY SIGMOIDOSCOPY [facility] Start: 2011 Diabetes screen Diabetes screen [facility] Work Phone: Start: 2011 Lipid panel Lipid screen [facility] Work Phone: Start: 1990 Hepatitis B vaccination Hepati tis B (HBV) Vaccine (1 of 3 - Risk 3-dose series) [facility] Start: 1990 Urine microalbumin profile DTAP,TDAP,TD (1 - Tdap) [facility] Start: 1989 Hepatitis C screening Hepatitis C An tibody [facility] Start: 1989 HEPATITIS C SCREENING HEPATITIS C SC REENING [facility] Start: 1989 HIV SCREENING HIV SCREENING [facility] Start: 1986 HIV screening [facility] Start: 1981 Lipid panel Lipid screen [facility] Work Phone: Start: 1977 PNEUMOCOCCAL (1 - PCV) PNEUMOCOCCAL (1 - PCV) [facility] Start: 1977 Pneumococcal vaccination Pneum ococcal Vaccine(s) (1 - PCV) [facility] Start: 1976 COVID-19 Vaccine (#1) COVID-19 Vacci ne (#1) [facility] Start: 1976 COVID-19 Vaccine (1) COVID-19 Vaccin e (1) [facility] Start: 01-09-1972 COVID-19 VACCINE (#1) COVID-19 VACCI NE (#1) [facility] Start: 1971 Urine screening for protein [facility] Start: 1971 Diabetic foot examination Foot [facility] Start: 1971 HEPATITIS B (1 of 3 - 3-dose series) HEPATITIS B (1 of 3 - 3-dose series) [facility] Start: 1971 Hepatitis B vaccination Hepati tis B (HBV) Vaccine (1 of 3 - 3-dose series) [facility] Start: 1971 Hepatitis C screening Hepatitis C [facility] [employer] Phone: Start: 1971 Screening for malign ant neoplasm of colon Colonoscopy [facility] Bacteria identified in Unspecified specimen by Anaerobe+Aerobe culture [facility] End: 12-28-2020 Basic metabolic 2000 panel Basic Metabolic Panel Lab Routine One Time for 1 Occurrences starting 12/28/2020 until 12/28/2020 [employer] Phone: Comment on above: One Time for 1 Occur rences starting 12/28/2020 until 12/28/2020 End: 12-28-2020 Catheterization and angiography procedure details panel Diagnostic Cardiac Spray Applicator Procedure Cardiac Cath Routine One Time for 1 Occurrences starting 12/28/2020 until 12/28/2020 [employer] Phone: Comment on above: One Time for 1 Occur rences starting 12/28/2020 until 12/28/2020 End: 12-28-2020 CBC CBC Lab Routine One Time for 1 Occurrences starting 12/28/2020 until 12/28/2020 [employer] Phone: Comment on above: One Time for 1 Occur rences starting 12/28/2020 until 12/28/2020 Glucose measurement estimated from glycated hemoglobin [facility] Work Phone: Hemoglobin A1c/Hemoglobin.total in Blood [facility] Work Phone: IgA [Mass/volume] in Serum or Plasma [facility] IgG [Mass/volume] in Serum or Plasma [facility] IgM [Mass/volume] in Serum or Plasma [facility] Immunofixation for Urine Fir [facility] Armour light chains.f ree [Mass/volume] in Serum [facility] Armour light chains.free/Lambda light chains.free [Mass Ratio] in Serum [facility] Lambda light chains. 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 to underlying condition (HCC) 01/01/2023 5:57 PM EDT [employer] Work Phone: Oxygen therapy [[facility] Data Set] Initiate Oxygen Therapy Protocol Respiratory Care Routine Daily until discontinued starting 12/28/2020 [employer] Work Phone: Comment on above: Daily until disconti nued starting 12/28/2020 Patient Education [facility] Work Phone: Patient referral [facility] Work Phone: End: 12-20-2020 POCT Creatinine POCT Creatinine Point of Care Testing Routine One Time for 1 Occurrences starting 12/20/2020 until 12/20/2020 [employer] Work Phone: Comment on above: One Time for 1 Occur rences starting 12/20/2020 until 12/20/2020 POCT Glucose [facility] Work Phone: Comment on above: As Needed until disc ontinued starting 12/28/2020 4X Daily (AC & HS) u ntil discontinued starting 12/28/2020 Serum immunofixation [facility] Thyrotropin [Units/volume] in Serum or Plasma [facility] Work Phone: Troponin I.cardiac [Mass/volume] in Serum or Plasma by High sensitivity method [facility] Work Phone: End: 12-28-2020 TYPE AND SCREEN TYPE AND SCREEN Blood Bank Routine One Time for 1 Occurrences starting 12/28/2020 until 12/28/2020 [facility] Work Phone: Comment on above: One Time for 1 Occur rences starting 12/28/2020 until 12/28/2020 Immunizations Immunization Date Immunization Notes Care Provider [facility] 08-02-2023 Hemoglobin A1C Demetri garland MD Work Phone: [facility] 05-29-2023 Hemoglobin A1C Demetri garland MD Work Phone: [facility] 10-03-2022 Hemoglobin A1C Demetri garland MD Work Phone: [facility] 05-16-2022 Hemoglobin A1C Demetri garland MD Work Phone: [facility] 01-10-2022 Hemoglobin A1C Demetri garland MD Work Phone: [facility] 07-22-2021 Hemoglobin A1C Agustin Hampton MD Work Phone: [facility] 10-14-2020 influenza, injectabl e, quadrivalent, contains preservative Agustin Hampton MD Work Phone: [facility] 10-14-2020 influenza virus vaccine, unspecified formulation Demetri Frank MD Work Phone: [facility] 10-01-2020 influenza, injectabl e, quadrivalent, preservative free [facility] Work Phone: [facility] 250 DO Work Phone: 12-23-2019 Influenza, injectabl e, Madin [place] Canine Kidney, preservative free, quadrivalent DO [facility] Work Phone: [facility] 04-09-2016 tetanus toxoid, reduced diphtheria toxoid, and acellular pertussis vaccine, adsorbed [facility] Work Phone: [facility] Payers Date Payer Category Payer Medicare [id number] 2023 Medicare [id number] 2022 Unknown 2021 Self-pay [id number] 2020 Medicaid [id number] 2018 Private Health Insurance [id number] 1971 Unknown [id number] 2.16.84 0.1.811831.3.579.2.727 1971 Unknown [id number] 2.16.84 0.1.762956.3.579.2.727 1971 Unknown [id number] 2.16.8 40.1.621945.3.579.2.182 1971 Unknown [id number] 2.16.8 40.1.017512.3.579.2.182 1971 Unknown [id number] 2.16.8 40.1.609814.3.579.2.182 1971 Unknown [id number] 2.16.84 0.1.478329.3.579.2.593 1971 Unknown [id number] 2.16.84 0.1.774816.3.579.2.593 1971 Unknown [id number] 2.16.84 0.1.735018.3.579.2.593 1971 Unknown [id number] 2.16.84 0.1.004681.3.579.2.593 1971 Unknown [id number] 2.16.8 40.1.721599.3.579.2.718 1971 Unknown [id number] 2.16.8 40.1.350062.3.579.2.718 1971 Unknown [id number] 2.16. 840.1.625991.3.579.2.732 1971 Unknown [id number] 2.16. 840.1.272879.3.579.2.732 1971 Unknown [id number] 2.16. 840.1.238903.3.579.2.732 1971 Unknown [id number] 2.16. 840.1.973614.3.579.2.732 1971 Unknown [id number] 2.16. 840.1.517541.3.579.2.732 1959 Private Health Insurance [id number] 1.2.840.164267.1.13.239.2.7.3.950807.315 1959 Unknown [id number] Unknown [id number] Unknown [id number] 2.16. 840.1.921554.3.579.2.1149 Unknown [id number] 2.16. 840.1.845499.3.579.2.1149 Unknown [id number] 2.16. 840.1.671361.3.579.2.1149 Unknown [id number] 2.16. 840.1.684107.3.579.2.1149 Unknown [id number] 2.16.8 40.1.974130.3.579.2.531 Unknown [id number] 2.16.8 40.1.269632.3.579.2.531 Social History Date Type Detail Facility Start: 12-20-2020 Tobacco smoking status TXIS Unknown if ever smoked [facility] Start: 1970 Sex Assigned At Not on file [employer] Phone: Start: 08-24-2022 End: 09-03-2022 Exposure to SARS-CoV-2 (event) Not sure [employer] Phone: Start: 12-28-2020 End: 04-21-2022 Tobacco smoking status NHIS Former smoker [facility] Start: 12-28-2020 End: 09-03-2022 Tobacco use and exposure Never used [employer] Phone: Start: 12-28-2020 End: 09-03-2022 Alcohol intake Ex-drinker (finding) [employer] Phone: Start: 01-10-2022 End: 04-17-2023 Tobacco smoking status NHIS Smoker (finding) [facility] Start: 1970 Sex Assigned At Male F [facility] No illicit drug use No illicit drug use [facility] 250 DO Work Phone: Comment on above: coffee 1 big gulp - pop 4 daily; 1/2 ppd; Sex Assigned At marker.to [facility] [employer] Other Start: 09-03-2022 Tobacco smoking status TXIS Smokes tobacco daily [facility] History of tobacco use Cigarette Smoker [facility] Start: 08-02-2023 Tobacco smoking status NHIS Never smoker [facility] Start: 08-02-2023 Tobacco smoking status TXIS Current every day smoker [facility] Medical Equipment Procedure Code Equipment Code Equipment Origin al Text Equipment Identifier Dates USE WITH INSULIN FIVE TIMES DAILY AND NEEDED [id number] Start: 10-23-2020 TEST FIVE TIMES DAILY [id number] Start: 10-23-2020 Goals Date Patient Goal Desired Activity /State Functional Status Date Assessment Result Facility 04-18-2023 Functional status Patient at Baseline [facility] Work Phone: 02-14-2022 PHQ-9 [id number] Mild (5-9) [facility] 250 DO Work Phone: 01-19-2022 PHQ-9 [id number] Moderate (10-14) [facility] 250 DO Work Phone: 01-12-2022 Functional status Patient at Baseline [facility] Work Phone: Mental Status Date Assessment Result Facility 04-18-2023 Cognitive function Cognitive Sta tus Patient at Baseline [facility] Work Phone: 01-12-2022 Cognitive function Cognitive Sta tus Patient at Baseline [facility] Work Phone: Clinical Notes 07-10-2021 to 10-17-2023 Note Date & Type Note Facility 10-17-2023 Note Entered by MURRAY TENORIO DO on October 17, 2023 16:37:15 EST From: FADI TENORIO DO To: [employer] Sent: 10/17/2023 16:37:15 EST Subject: Medication Management Submitted: Complete:tamsulosin (tamsulosin 0.4 mg oral capsule) Signed by FADI TENORIO DO 10/17/2023 16:37:00 EST Submitted: Complete:bumetanide (bumetanide 2 mg oral tablet) Signed by FADI TENORIO DO 10/17/2023 16:37:00 EST Submitted: Complete:potassium chloride (Potassium Chloride (Cna-Wlge-Wry M20) 20 mEq oral tablet, extended release) Signed by FADI TENORIO DO 10/17/2023 16:37:00 EST Approved with modifications: bumetanide (Bumetanide 2MG TABS) TAKE 1 TABLET BY MOUTH TWICE A DAY BEFORE MEALS Qty: 56 tab(s) Days Supply: 28 Refills: 2 Substitutions Allowed Route To Pharmacy [facility] [employer] Note from Pharmacy: Maximum Refills Reached Approved with modifications: potassium chloride (Potassium Chloride Ria ER 20MEQ TBCR) TAKE 1 TABLET BY MOUTH EVERY MORNING Qty: 28 tab(s) Days Supply: 28 Refills: 2 Substitutions Allowed Route To 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 REPAIR TECHNICIAN Subject: Medication Management Due: October 18, 2023 12:03:12 AM REFRIGERATOR REPAIR TECHNICIAN On Hold Pending Signature Drug: bumetanide (bumetanide 2 mg oral tablet), TAKE 1 TABLET BY MOUTH TWICE A DAY BEFORE MEALS Quantity: 56 tab(s) Days Supply: 28 Refills: 0 Substitutions Allowed Notes from Pharmacy: Maximum Refills Reached- this dose was given after hospital stay, please send refill if appropriate Dispensed Drug: bumetanide (bumetanide 2 mg oral tablet), TAKE 1 TABLET BY MOUTH TWICE A DAY BEFORE MEALS Quantity: 56 tab(s) Days Supply: 28 Refills: 0 Substitutions Allowed Notes from Pharmacy: Maximum Refills Reached On Hold Pending Signature Drug: potassium chloride (Potassium Chloride (Koe-Uezx-Yru M20) 20 mEq oral tablet, extended release), TAKE 1 TABLET BY MOUTH EVERY MORNING Quantity: 28 tab(s) Days Supply: 28 Refills: 0 Substitutions Allowed Notes from Pharmacy: Maximum Refills Reached-- this med was precribed during hospital stay, please send refill if appropriate Dispensed Drug: potassium chloride (Potassium Chloride (Ute-Sfqr-Igw M20) 20 mEq oral tablet, extended release), TAKE 1 TABLET BY MOUTH EVERY MORNING Quantity: 28 tab(s) Days Supply: 28 Refills: 0 Substitutions Allowed Notes from Pharmacy: Maximum Refills Reached On Hold Pending Signature Drug: tamsulosin (tamsulosin 0.4 mg oral capsule), TAKE 1 CAPSULE BY MOUTH AT BEDTIME Quantity: 28 cap(s) Days Supply: 28 Refills: 0 Substitutions Allowed Notes from Pharmacy: Maximum Refills Reached-this med was prescribed after a recent hospital stay, please send new rx if patient is to continue taking this medication- Thank you Dispensed Drug: tamsulosin (tamsulosin 0.4 mg oral capsule), TAKE 1 CAPSULE BY MOUTH AT BEDTIME Quantity: 28 cap(s) Days Supply: 28 Refills: 0 Substitutions Allowed Notes from Pharmacy: Maximum Refills Reached [facility] 09-17-2023 Evaluation note Encounter Date Diagnosis Assessment Notes Sep, 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 Discussed diligent skin monitoring for breakdown given history of revision due to postop complications at operative site. Sep, Muscle spasm (ICD-10 - M62.838) [place] Other 11-29-2023 History of Present illness Narrative* Demetri Frank MD - 09/11/2023 4:16 PM EST Longstanding PDR OU, DME, mac ischemia OU Sp PRP OU, Repeated injections - last 10/2022, 06/2023 Did not notice any real improvement with injections PRP fill in OU 12/2022 No real change since last visit A/P 1. 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 Amaurosis fugax OU - Reported ~08/2020 with transient vision loss episodes but now resolved as of 10/2020 - 12/2019 MRA neck no ICA stenosis - GCA symptoms POWELL, jaw mikaela, F/C negative - rec go to ED if symptoms recur Return 8 weeks Dilate OU OCT mac OU documented in this [id number] NoteEntered by FADI TENORIO DO on August 28, 2023 09:11:44 EST From: FADI TENOROI DO To: [facility] Sent: 08/28/2023 09:11:44 EST Subject: Medication Management Documented Complete:potassium chloride (Potassium Chloride (Sxu-Xied-Yis M20) 20 mEq oral tablet, extended release) Signed by FADI TENORIO DO 08/28/2023 09:11:00 EST Documented Complete:bumetanide (bumetanide 1 mg oral tablet) Signed by FADI TENORIO DO 08/28/2023 09:11:00 EST Documented Complete:tamsulosin (tamsulosin 0.4 mg oral capsule) Signed by FADI TENORIO DO 08/28/2023 09:11:00 EST Approved tamsulosin (Tamsulosin HCl 0.4MG CAPS) TAKE 1 CAPSULE BY MOUTH AT BEDTIME Qty: 28 cap(s) Days Supply: 28 Refills: 0 Substitutions Allowed Route To [facility] Note from Pharmacy: Maximum Refills Reached-this med was prescribed after a recent hospital stay, please send new rx if patient is to continue taking this medication- Thank you Approved bumetanide (Bumetanide 2MG TABS) TAKE 1 TABLET BY MOUTH TWICE A DAY BEFORE MEALS Qty: 56 tab(s) Days Supply: 28 Refills: 0 Substitutions Allowed Route To Pharmacy [facility] Note from Pharmacy: Maximum Refills Reached- this dose was given after hospital stay, please send refill if appropriate Approved potassium chloride (Potassium Chloride Ria ER 20MEQ TBCR) TAKE 1 TABLET BY MOUTH EVERY MORNING Qty: 28 tab(s) Days Supply: 28 Refills: 0 Substitutions Allowed Route To Pharmacy - [facility] - Judy Trujillo Note from Pharmacy: Maximum Refills Reached-- this med was precribed during hospital stay, please send refill if appropriate Patient matched by FADI TENORIO DO on 08/28/2023 09:11:04 EST From: [facility] - To: FADI TENORIO DO Sent: August 28, 2023 7:51:26 AM REFRIGERATOR REPAIR TECHNICIAN Subject: Medication Management Due: August 29, 2023 12:10:43 AM REFRIGERATOR REPAIR TECHNICIAN On Hold Pending Signature Drug: tamsulosin (tamsulosin 0.4 mg oral capsule), TAKE 1 CAPSULE BY MOUTH AT BEDTIME Quantity: 28 cap(s) Days Supply: 28 Refills: 0 Substitutions Allowed Notes from Pharmacy: Maximum Refills Reached-rx sent from recent hospital stay, please send new rx if appropriate Dispensed Drug: tamsulosin (tamsulosin 0.4 mg oral capsule), TAKE 1 CAPSULE BY MOUTH AT BEDTIME Quantity: 28 cap(s) Days Supply: 28 Refills: 0 Substitutions Allowed Notes from Pharmacy: Maximum Refills Reached-this med was prescribed after a recent hospital stay, please send new rx if patient is to continue taking this medication- Thank you On Hold Pending [facility]: bumetanide (bumetanide 2 mg oral tablet), TAKE 1 TABLET BY MOUTH TWICE A DAY BEFORE MEALS Quantity: 56 tab(s) Days Supply: 28 Refills: 0 Substitutions Allowed Notes from Pharmacy: Maximum Refills Reached-dose changed during hospital stay, please send refill if pt should continue or different rx if your office wants to change Dispensed Drug: bumetanide (bumetanide 2 mg oral tablet), TAKE 1 TABLET BY MOUTH TWICE A DAY BEFOREMEALS Quantity: 56 tab(s) Days Supply: 28 Refills: 0 Substitutions Allowed Notes from Pharmacy: Maximum Refills Reached- this dose was given after hospital stay, please send refill if appropriate On Hold Pending Signature Drug: potassium chloride (Potassium Chloride (Kzo-Iufv-Swy M20) 20 mEq oral tablet, extended release), TAKE 1 TABLET BY MOUTH EVERY MORNING Quantity: 28 tab(s) Days Supply: 28 Refills: 0 Substitutions Allowed Notes from Pharmacy: Maximum Refills Reached- rx sent upon discharge from recent hospital stay, please send refill if appropriate Dispensed Drug: potassium chloride (Potassium Chloride (Vvb-Ldlr-Zdr M20) 20 mEq oral tablet, extended release), TAKE 1 TABLET BY MOUTH EVERY MORNING Quantity: 28 tab(s) Days Supply: 28 Refills: 0 Substitutions Allowed Notes from Pharmacy: Maximum Refills Reached-- this med was precribed during hospital stay, please send refill if appropriate [id number] Discharge summary Author Harjeet Ruelas [facility] August 03, 2023 1:06pm Note Date/Time August 03, 2023 1 0:59am [place] [address] Discharge Summary Signed Patient: Chandler Minor MR#: [id number] : 1970 Acct: [id number] Age/Sex: 53 / M Date of Service: 08/02/23 Loc: [facility] [id number]: Harjeet Ruelas M.D. cc: None,Doctor Rosi; Harjeet Ruelas M.D.~ Physician/JULIA Physician/JULIA Date of service: 08/03/23 Date of hospitalization: 08/02/23 04:45 Primary Care Physician/JULIA: Doctor Domo, Admitting Physician/JULIA: Helen Jovel MD Discharging Physician/JULIA: Harjeet Ruelas MD Diagnosis Discharge Diagnosis (1) Altered mental state: Status: Resolved (2) Hypoglycemia: Status: Resolved (3) Hypothermia: Status: Resolved (4) CKD (chronic kidney disease), stage IV: Status: Chronic (5) Leukocytosis: Status: Resolved (6) Diabetes: Status: Chronic (7) Abnormal CT of brain: Status: Ruled-out (8) Hypertension: Status: Chronic (9) CVA (cerebral vascular accident): Status: Chronic (10) Hypothyroid: Status: Chronic (11) BPH (benign prostatic hyperplasia): Status: Chronic Summary Hospital Course Hospital Course: Chandler Minor is a 53 year old male current smoker with past medical history ofCVA, HTN, type 2 diabetes mellitus, BPH, hypothyroid presented to ED with complaints of altered mental status. Patient is currently alert oriented x3. Patient reports no remembrance of falling down. Patient glucose level was in 500s last night so he took lispro 15 units as per sliding scale protocol and Lantus 42 units. Patient reports that he came to [place] to see his mom. Patient reports chronic right-sided weakness and dysphagia since stroke which was 3 years ago. In ED patient labs WBC 14.5, hemoglobin 14, platelet count 285, pH 7.34, PCO2 41, PO2 82.2, BUN/creatinine 48/2.58, glucose 30, hemoglobin A1c 12, C-peptide 2, unremarkable LFTs, procalcitonin 0.11, TSH 1.144, free T41.16. UA unremarkable. Urine drug screen not detected. CT head reported no CT evidence of acute intraocular hemorrhage or midline shift or mass effect, hypodense changes within right and left-side of the cerebellum. Chest x-ray reported no radiographic evidence of acute pulmonary disease. In ED patient was hypothermic so he is put on Gabriel hugger. Patient presented with glucose level of 30s so he was given D50 and started on D10 drip. Neurology was consulted and recommended MRI brain. MRI reported no acute intracranial process, periventricular white matter disease, cerebral atrophy. Neurology followed up and cleared patient for discharge. Patient presented with elevated creatinine but no baseline in the records to compare. Renal ultrasound reported unremarkable. Patient reports that he was told he had some kidney damage. Patient's hypoglycemia and hypothermia is resolved after sugar levels improved with the D10 drip. Recommended patient to cut down on Lantus to 20 units twice daily due to CKD stage IV and continue to take insulin sliding scale as protocol. Patient was seen by speech/swallow therapy and recommended regular diet with the small sips of thin liquids. Patient is vitally stable for discharge and denied having symptoms prior to discharge. Status at Discharge Cognitive/behavioral status at discharge: Normal Functional status at discharge: uses cane/walker Overall status at discharge: patient is progressing back to baseline Home Care Does the patient require home care services?: No Patient is under my care and I, or a Nurse Practitioner or Physician's Assistantworking with me, had a G[facility]s-[employer]-[facility] encounter. Based on my findings, the services listed are medically necessary. Further, I certify that my clinical findings support the patient's homebound status. Time Spent with Patient Time attestation: Total time spent providing and/or coordinating discharge services: 35 Time spent: Greater than 30 minutes Exam Narrative Exam Narrative: General?mild distress due to generalized weakness Neck?no JVD or lymphadenopathy Head?mucous membranes are moist, no epistaxis noticed. 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 Extremities?no pedal edema or cyanosis or clubbing noticed. Right BKA. Psych?normal mood, no anxiety or depression or agitation noticed. Data Data Completed and Pending Labs on day of discharge: Labs from last 24 hours 08/03/23 08/03/23 08/03/23 08:08 06:43 05:51 WBC 10.3 D Cancelled RBC 3.71 L Cancelled Hgb 11.7 L D Cancelled Hct 34.3 L Cancelled MCV 92.5 D Cancelled MCH 31.5 Cancelled MCHC 34.1 Cancelled RDW Coeff of Emigdio 13.2 Cancelled Plt Count 220 Cancelled MPV 11.3 Cancelled Neut % (Auto) 76.6 H Cancelled Lymph % (Auto) 12.2 L D Cancelled [place] % (Auto) 7.5 D Cancelled Eos % (Auto) 3.0 D Cancelled Baso % (Auto) 0.3 Cancelled Neut # (Auto) 7.89 H D Cancelled Lymph # (Auto) 1.26 D Cancelled [place] # (Auto) 0.77 D Cancelled Eos # (Auto) 0.31 Cancelled Baso # (Auto) 0.03 Cancelled PHA Creatinine Clear 36 Sodium 140 Potassium 4.6 Chloride 111 H Carbon Dioxide 22 Anion Gap 12 BUN 50 H Creatinine 2.348 H GFR Calculation 31 L Glucose 147 H D Glucometer 165 H Calcium 8.2 L Magnesium 1.9 Total Bilirubin 0.3 AST 16 ALT 16 Alkaline Phosphatase 100 Total Protein 5.4 L Albumin 2.9 L Triglycerides Cholesterol LDL Cholesterol, Calc HDL Cholesterol 08/02/23 08/02/23 08/02/23 22:43 16:22 13:21 WBC RBC Hgb Hct MCV MCH MCHC RDW Coeff of Emigdio Plt Count MPV Neut % (Auto) Lymph % (Auto) [place] % (Auto) Eos % (Auto) Baso % (Auto) Neut # (Auto) Lymph # (Auto) [place] # (Auto) Eos # (Auto) Baso # (Auto) PHA Creatinine Clear Sodium Potassium Chloride Carbon Dioxide Anion Gap BUN Creatinine GFR Calculation Glucose Glucometer 381 H 240 H 110 Calcium Magnesium Total Bilirubin AST ALT Alkaline Phosphatase Total Protein Albumin Triglycerides Cholesterol LDL Cholesterol, Calc HDL Cholesterol 08/02/23 08/02/23 11:30 07:02 WBC RBC Hgb Hct MCV MCH MCHC RDW Coeff of Emigdio Plt Count MPV Neut % (Auto) Lymph % (Auto) [place] % (Auto) Eos % (Auto) Baso % (Auto) Neut # (Auto) Lymph # (Auto) [place] # (Auto) Eos # (Auto) Baso # (Auto) PHA Creatinine Clear Sodium Potassium Chloride Carbon Dioxide Anion Gap BUN Creatinine GFR Calculation Glucose Glucometer 117 H Calcium Magnesium Total Bilirubin AST ALT Alkaline Phosphatase Total Protein Albumin Triglycerides 143 Cholesterol 89 LDL Cholesterol, Calc 28 HDL Cholesterol 32 L Preliminary micro results at discharge 08/02/23 04:24 Blood Culture - Preliminary Blood NO GROWTH. Time of report was 24 hours. Further report to follow if growth occurs on continued incubation. 08/02/23 04:24 Blood Culture - Preliminary Blood NO GROWTH. Time of report was 24 hours. Further report to follow if growth occurs on continued incubation. Radiologist Impressions Radiology Impressions: ITS Impressions Head CT 08/02/23 05:[address]: [address] evidence of acute intracranial hemorrhage, midline shift or mass- effect. 2. Hypodense changes within right and left side of the cerebellum. Concerningfor underlying infarct. CT appearance suggest subacute-chronic age. Chest X-Ray 08/02/23 07:15 IMPRESSION: No radiographic evidence of acute pulmonary disease identified. Renal Ultrasound 08/02/23 12:44 IMPRESSION: 1. Unremarkable renal ultrasound. Brain MRI 08/02/23 20:30 IMPRESSION: 1. No acute intracranial process. 2. Periventricular white matter disease. 3. Cerebral atrophy. Discharge Needs / Plan Discharge Needs Social Work-Patient Discharge Needs: denied needs Discharge Plan Social Work- Patient Discharge Plan: return home with family Quality Measure Queries VTE DVT/PE Present on Hospitalization: No Discharge Plan Discharge Date of Hospitalization: 08/02/23 04:45 Primary Care Physician/JULIA: None,Doctor Admitting Physician on hospitalization: Harjeet Ruelas Attending Physician/JULIA on Hospitalization: Harjeet Ruelas Attending Physician/JULIA on discharge: Harjeet Ruelas Discharging Physician/JULIA: Harjeet Ruelas Patient Disposition: Home, Self-Care Condition at Discharge: Fair Discharge Medications: Continued clopidogrel 75 mg Tablet 75 mg ORAL DAILY aspirin 81 mg Tablet,Delayed Release (Dr/Ec) 81 mg ORAL DAILY levothyroxine 25 mcg Tablet 25 mcg ORAL DAILY terazosin 2 mg Capsule 2 mg ORAL DAILY ropinirole 2 mg Tablet 2 mg ORAL TID omeprazole 20 mg Capsule,Delayed Release(Dr/Ec) 20 mg ORAL DAILY ergocalciferol (vitamin D2) [Vitamin D2] 1,250 mcg (50,000 unit) Capsule 50,000 unit ORAL QWEEK Jardiance 10 mg Tablet 10 mg ORAL DAILY losartan 50 mg Tablet 50 mg ORAL DAILY atorvastatin 80 mg Tablet 80 mg ORAL PM carvedilol 25 mg Tablet 25 mg ORAL BID Rx Instructions: must administer with a meal/food bumetanide 2 mg Tablet 2 mg ORAL BIDAC trazodone 50 mg Tablet 50 mg ORAL BEDTIME isosorbide mononitrate 60 mg Tablet Extended Release 24 Hr 60 mg ORAL DAILY citalopram 20 mg Tablet 20 mg ORAL DAILY ascorbic acid (vitamin C) 500 mg Tablet 500 mg ORAL DAILY tamsulosin 0.4 mg Capsule 0.4 mg ORAL BEDTIME potassium chloride 20 mEq Tablet Extended Release 20 meq ORAL DAILY polyethylene glycol 3350 17 gram Powder In Packet 17 g ORAL DAILY PRN (Reason: Constipation) nitroglycerin 0.4 mg Tablet, Sublingual 0.4 mg SUBLINGUAL Q5M PRN (Reason: Chest Pain) Rx Instructions: do not exceed 3 doses per episode nystatin [Nyamyc] 100,000 unit/gram Powder 1 applic TOPICAL DAILY PRN (Reason: Skin Irritation) Rx Instructions: apply to stomach albuterol sulfate 90 mcg/actuation Hfa Aerosol Inhaler 2 puff INHALATION Q4H PRN (Reason: Shortness Of Breath Or Wheezing) fluticasone propionate 50 mcg/actuation [place],Suspension 2 spray INTRANASAL DAILY PRN (Reason: allergies) Rx Instructions: administer into each nostril insulin lispro [Humalog KwikPen Insulin] 100 unit/mL Insulin Pen 1 sliding scale dose SUBCUT TID Victoza 3-Crista 0.6 mg/0.1 mL (18 mg/3 mL) Pen Injector 1.8 mg SUBCUT DAILY Changed insulin detemir U-100 100 unit/mL (3 mL) Insulin Pen 20 unit SUBCUT BID 14 Days Qty: 0 0RF Activity: increase activity as tolerated and resume usual activities as tolerated Diet: diabetic diet, low fat, low cholesterol, low salt diet and high fiber diet Patient Instructions: Diabetes Exchange Diet, Low Blood Sugar, Adult (DC), Diabetes Diet , Diabetes and Diet Activity Restrictions/Additional Instructions: Please make an appointment with your PCP in 1 to 2 weeks Maintain glucose levels in 160 to 180s Stand Alone Forms: Portal Instructions Referrals: None,Doctor, DO [Primary Care Provider] - 2 weeks (Lives out of town and will follow up when he gets home for the next two weeks) Discharge Orders: Discharge Order (Routine); Ordered 08/03/23 Ordered By: Harjeet Ruelas Documented By: Harjeet Ruelas M.D. 08/03/23 1058 Signed By: <Electronically signed by Harjeet Rueals M.D.> 08/03/23 1306 [facility] Work Phone: 1(227) 356-699610-21-2023 [place] [id number] Discharge Summary Signed Patient: Chandler Minor MR#: [id number] : 1970 Acct: [id number] Age/Sex: 53 / M Date of Service: 08/02/23 Loc: [facility] 4828-[address]: Harjeet Ruelas M.D. cc: None,Doctor D.OCirilo; Harjeet Ruelas M.D. Physician/JULIA Physician/JULIA Date of service: 08/03/23 Date of hospitalization: 08/02/23 04:45 Primary Care Physician/JULIA: Doctor None, DO Admitting Physician/JULIA: Helen Jovel MD Discharging Physician/JULIA: Harjeet Ruelas MD Diagnosis Discharge Diagnosis (1) Altered mental state: Status: Resolved (2) Hypoglycemia: Status: Resolved (3) Hypothermia: Status: Resolved (4) CKD (chronic kidney disease), stage IV: Status: Chronic (5) Leukocytosis: Status: Resolved (6) Diabetes: Status: Chronic (7) Abnormal CT of brain: Status: Ruled-out (8) Hypertension: Status: Chronic (9) CVA (cerebral vascular accident): Status: Chronic (10) Hypothyroid: Status: Chronic (11) BPH (benign prostatic hyperplasia): Status: Chronic Summary Hospital Course Hospital Course: Chandler Minor is a 53 year old male current smoker with past medical history of CVA, HTN, type 2 diabetes mellitus, BPH, hypothyroid presented to ED with complaints of altered mental status. Patient is currently alert oriented x3. Patient reports no remembrance of falling down. Patient glucose level was in 500s last night so he took lispro 15 units as per sliding scale protocol and Lantus 42 units. Patient reports that he came to [place] to see his mom. Patient reports chronic right-sided weakness and dysphagia since stroke which was 3 years ago. In ED patient labs WBC 14.5, hemoglobin 14, platelet count 285, pH 7.34, PCO2 41, PO2 82.2, BUN/creatinine 48/2.58, glucose 30, hemoglobin A1c 12, C-peptide 2, unremarkable LFTs, procalcitonin 0.11, TSH 1.144, free T41.16. UA unremarkable. Urine drug screen not detected. CT head reported no CT evidence of acute intraocular hemorrhage or midline shift or mass effect, hypodense changes within right and left-side of the cerebellum. Chest x-ray reported no radiographic evidence of acute pulmonary disease. In ED patient was hypothermic so he is put on Gabriel hugger. Patient presented with glucose level of 30s so he was given D50 and started on D10 drip. Neurology was consulted and recommended MRI brain. MRI reported no acute intracranial process, periventricular white matter disease, cerebral atrophy. Neurology followed up and cleared patient for discharge. Patient presented with elevated creatinine but no baseline in the records to compare. Renal ultrasound reported unremarkable. Patient reports that he was told he had some kidney damage. Patient's hypoglycemia and hypothermia is resolved after sugar levels improved with the D10 drip. Recommended patient to cut down on Lantus to 20 units twice daily due to CKD stage IV and continue to take insulin sliding scale as protocol. Patient was seen by speech/swallow therapy and recommended regular diet with the small sips of thin liquids. Patient is vitally stable for discharge and denied having symptoms prior to discharge. Status at Discharge Cognitive/behavioral status at discharge: Normal Functional status at discharge: uses cane/walker Overall status at discharge: patient is progressing back to baseline Home Care Does the patient require home care services?: No Patient is under my care and I, or a Nurse Practitioner or Physician's Tar And Ammonia Pump Operator working with me, had a [id number] encounter. Based on my findings, the services listed are medically necessary. Further, I certify that my clinical findings support the patient's homebound status. Time Spent with Patient Time attestation: Total time spent providing and/or coordinating discharge services: 35 Time spent: Greater than 30 minutes Exam Narrative Exam Narrative: General???mild distress due to generalized weakness Neck???no JVD or lymphadenopathy Head???mucous membranes are moist, no epistaxis noticed. Eye???no conjunctival paleness or icteric noticed, EOM intact, pupils bilaterally equally reactive, Cardiac???normal S1-S2, normal rate and rhythm Pulmonary???bilateral equal air entry, no wheeze or rhonchi or crackles heard Abdomen???soft, nontender, nondistended, normal bowel sounds, no hepatosplenomegaly, no rebound tenderness or guarding COMPUTER SYSTEMS SUPPORT SPECIALIST???alert oriented x3, CN II to XII intact, sensations intact, strength at baseline. Extremities???no pedal edema or cyanosis or clubbing noticed. Right BKA. Psych???normal mood, no anxiety or depression or agitation noticed. Data Data Completed and Pending Labs on day of discharge: Labs from last 24 hours 08/03/23 08/03/23 08/03/23 08:08 06:43 05:51 WBC 10.3 D Cancelled RBC 3.71 L Cancelled Hgb 11.7 L D Cancelled Hct 34.3 L Canc (more content not included)...[facility] 08-03-2023 Hospital Discharge instructions Additional Instructions Please make an appointment with your PCP in 1 to 2 weeks [facility] Phone: 1([phone]) 347-241810-20-2023 Consult note Author Marcelino Abel [facility] August 02, 2023 2:46pm Note Date/Time August 02, 2023 1 1:10am [address] [address] Neurology Consult Note Signed Patient: Chandler Minor MR#: [id number] : 1970 Acct: [id number] Age/Sex: 53 / M Date of Service: 08/02/23 Loc: [facility] 4828-[address]: Helen Jovel M.D. cc: Marcelino Abel M.D.~ HPI: Consult Note Consult details Date of service: 08/02/23 Narrative: Briefly, patient is a 53-year-old male who presented via EMS with altered mentalstatus. As per EMS patient had elevated blood sugar over 500 earlier in the night and gave himself insulin and family heard a thump and went to check on himsaw him fallen on the floor unable to wake him up and called EMS. When the EMS arrived his sugar was low with fingerstick of 38 and he was noted to be hypothermic rectal temperature 92.6. Patient was started on external rewarming and received IV dextrose which made him more awake and alert. In the ED patientalso had a CT head without contrast which showed no acute intracranial hemorrhage however hypodense changes within the right and left of cerebellum concerning for underlying infected. Patient was admitted to PICU and neurology consulted for altered mental status and abnormal CT findings. Review of Systems Const: Constitutional: Reports system reviewed and no additional complaints, except as documented Eyes: Eyes: Reports system reviewed and no additional complaints, except as documented ENT: ENT: Reports system reviewed and no additional complaints, except as documented Cardio: Cardiology: Reports system reviewed and no additional complaints, except as documented Resp: Respiratory: Reports system reviewed and no additional complaints, except as documented Gastro: GI: Reports system reviewed and no additional complaints, except as documented Genitou: Genitourinary male: Reports system reviewed and no additional complaints, except as documented Musculo: Symptoms musculoskeletal: Reports system reviewed and no additional complaints, except as documented Neurologic: Neurologic: Reports system reviewed and no additional complaints, except as documented Psychiatric: Symptoms psychiatric: Reports system reviewed and no additional complaints, except as documented Endocrine: Symptoms endocrine: Reports system reviewed and no additional complaints, except as documented Jordon/Lymph: Symptoms hematologic/lymphatic: Reports system reviewed and no additional complaints, except as documented Allergic/Imm: Symptoms allergic/immunologic: Reports system reviewed and no additional complaints, except as documented PFSH PFSH Medical History BPH (benign prostatic hyperplasia) CVA (cerebral vascular accident) Diabetes Hypertension Hypothyroid Surgical History Hx of right BKA Family History Other Family history non-contributory Social History Advance Directives: No Advance Directives Information Provided: No Advance Directives on File: No Would like to be referred to Health Education Coordinator for info?: No Smoking Status: Current every day smoker Non prescribed substance use: denies use Marital status: Unknown household members: spouse Highest level of school completed/degree received: GED or equivalent Have You Been Hit, Kicked, Punched, or Otherwise Hurt By Someone Within the PastYear? If So, By Whom?: No Do you feel safe in your current relationship?: No Is There a Partner from a Previous Relationship Who is Making You Feel Unsafe Now?: No Other Family history non-contributory BPH (benign prostatic hyperplasia) CVA (cerebral vascular accident) Diabetes Hypertension Hypothyroid Meds Home Medications and Allergies Home Medications Medication Instructions Recorded Confirmed Type albuterol sulfate 90 mcg/actuation 2 puff inhalation Q4H PRN 08/02/23 08/02/23 History aerosol inhaler Shortness Of Breath Or Wheezing ascorbic acid (vitamin C) 500 mg 500 mg ORAL DAILY supplement 08/02/23 08/02/23 History tablet aspirin 81 mg tablet,delayed 81 mg ORAL DAILY heart health 08/02/23 08/02/23 History release atorvastatin 80 mg tablet 80 mg ORAL PM cholesterol 08/02/23 08/02/23 History bumetanide 2 mg tablet 2 mg ORAL BIDAC water pill 08/02/23 08/02/23 History carvedilol 25 mg tablet 25 mg ORAL BID blood pressure 08/02/23 08/02/23 History citalopram 20 mg tablet 20 mg ORAL DAILY mood 08/02/23 08/02/23 History clopidogrel 75 mg tablet 75 mg ORAL DAILY blood thinner 08/02/23 08/02/23 History empagliflozin 10 mg tablet 10 mg ORAL DAILY diabetes 08/02/23 08/02/23 History (Jardiance) ergocalciferol (vitamin D2) 1,250 50,000 unit ORAL QWEEK supplement 08/02/23 08/02/23 History mcg (50,000 unit) capsule (Vitamin D2) fluticasone propionate 50 2 spray intranasal DAILY PRN 08/02/23 08/02/23 History mcg/actuation nasal allergies spray,suspension insulin detemir U-100 100 unit/mL 42 unit subcut BID diabetes 08/02/23 08/02/23 History (3 mL) subcutaneous pen insulin lispro 100 unit/mL 1 sliding scale dose subcut TID 08/02/23 08/02/23 History subcutaneous pen (Humalog KwikPen diabetes (U-100) Insulin) isosorbide mononitrate 60 mg 60 mg ORAL DAILY blood pressure 08/02/23 08/02/23 History tablet,extended release 24 hr levothyroxine 25 mcg tablet 25 mcg ORAL DAILY thyroid 08/02/23 08/02/23 History liraglutide 0.6 mg/0.1 mL (18 mg/3 1.8 mg subcut DAILY diabetes 08/02/23 08/02/23 History mL) subcutaneous pen injector (Victoza 3-Crista) losartan 50 mg tablet 50 mg ORAL DAILY blood pressure 08/02/23 08/02/23 History nitroglycerin 0.4 mg sublingual 0.4 mg sublingual Q5M PRN Chest 08/02/23 08/02/23 History tablet Pain nystatin 100,000 unit/gram topical 1 applic topical DAILY PRN Skin 08/02/23 08/02/23 History powder (Nyamyc) Irritation omeprazole 20 mg capsule,delayed 20 mg ORAL DAILY gerd 08/02/23 08/02/23 History release polyethylene glycol 3350 17 gram 17 g ORAL DAILY PRN Constipation 08/02/23 08/02/23 History oral powder packet potassium chloride 20 mEq 20 meq ORAL DAILY supplement 08/02/23 08/02/23 History tablet,extended release ropinirole 2 mg tablet 2 mg ORAL TID restless leg 08/02/23 08/02/23 History tamsulosin 0.4 mg capsule 0.4 mg ORAL BEDTIME bph 08/02/23 08/02/23 History terazosin 2 mg capsule 2 mg ORAL DAILY blood pressure 08/02/23 08/02/23 History trazodone 50 mg tablet 50 mg ORAL BEDTIME sleep 08/02/23 08/02/23 History Allergies Allergy/AdvReac Type Severity Reaction Status Date / Time promethazine [From Phenergan] Allergy Unknown Verified 08/02/23 06:47 Exam Const Common normals: Yes no acute distress and Yes patient oriented x3 HEENT Common normals: normocephalic and atraumatic Head and scalp: normocephalic and atraumatic Face and sinus: normal facial exam Eye Common normals: Equal, round and reactive pupils present and EOMs intact bilaterally Pupil: Equal, round and reactive pupils present Neck & C-Spine Common normals: full ROM and supple Chest Common normals: normal inspection of the chest and normal palpation of entire chest wall Respiratory Common normals: clear to auscultation bilaterally Auscultation: clear to auscultation bilaterally Cardio Common normals: regular rate, regular rhythm, S1 normal heart sound present and S2 normal heart sound present Rate: regular rate Rhythm: regular rhythm Heart sounds: S1 normal heart sound present and S2 normal heart sound present GI Common normals: Normal to inspection, nondistended, normoactive bowel sounds present, Soft to palpation, non-tender and No hepatosplenomegaly present Palpation: Soft to palpation and No hepatosplenomegaly present Extremity Common normals: full ROM Neuro Common normals: patient oriented x3, CN's II-XII intact bilaterally, moves all extremities, no focal motor deficits, no sensory deficits noted, deep tendon reflexes 2+ bilaterally, no facial droop and speech normal Psych Common normals: Normal thought process present Thought process: Normal thought process present Neurology Results Vital Signs Vital Signs Temp Pulse Resp BP Pulse Ox O2 Del Method O2 Flow Rate 08/02/23 08:22 97.7 F 68 16 117/70 98 Room Air 08/02/23 08:02 69 15 100 08/02/23 08:01 69 15 96/65 97 08/02/23 08:00 68 10 L 94 08/02/23 07:55 68 17 95 08/02/23 07:53 68 13 99 08/02/23 07:52 69 14 97/66 100 08/02/23 07:50 69 13 97 08/02/23 07:45 70 16 95 08/02/23 07:42 69 20 87/60 92 08/02/23 07:40 69 9 L 90 08/02/23 07:39 69 19 81/63 93 08/02/23 07:36 68 10 L 86 08/02/23 07:35 68 19 80/60 95 08/02/23 07:32 68 15 88 08/02/23 07:31 68 11 L 74/60 95 08/02/23 07:30 67 11 L 76/51 98 08/02/23 07:25 67 13 82 08/02/23 07:22 73 17 76/59 96 08/02/23 07:21 67 18 98 08/02/23 07:20 67 22 73/52 97 08/02/23 07:19 66 10 L 72/49 99 08/02/23 07:15 66 99 08/02/23 07:10 67 14 99 08/02/23 07:07 65 14 88 08/02/23 07:05 66 18 99 08/02/23 07:02 66 17 89 08/02/23 07:00 65 11 L 98 08/02/23 06:55 65 0 L 97 08/02/23 06:50 64 15 96 08/02/23 06:45 64 98 08/02/23 06:40 64 16 08/02/23 06:35 63 15 08/02/23 06:31 63 15 96/64 99 08/02/23 06:30 63 97 08/02/23 06:25 64 13 99 08/02/23 06:20 63 12 100 08/02/23 06:15 62 15 99 08/02/23 06:10 62 15 98 08/02/23 06:05 63 25 H 99 08/02/23 06:01 63 15 123/68 100 08/02/23 06:00 62 12 98 08/02/23 05:55 61 19 99 08/02/23 05:50 62 15 100 08/02/23 05:45 62 20 08/02/23 05:40 63 16 08/02/23 05:35 62 14 08/02/23 05:31 60 13 128/77 99 08/02/23 05:30 61 15 100 08/02/23 05:25 59 L 13 100 08/02/23 05:20 60 6 L 96 08/02/23 05:15 59 L 19 100 08/02/23 05:14 59 L 15 133/76 99 08/02/23 05:12 59 L 12 08/02/23 04:55 70 14 100 08/02/23 04:50 56 L 15 100 08/02/23 07:44 94.5 F L 08/02/23 07:25 66 14 78/60 08/02/23 06:34 94.2 F L 70 18 96/64 98 Room Air 08/02/23 05:44 93.7 F L 08/02/23 04:36 62 17 126/73 100 08/02/23 04:42 92.6 F L 08/02/23 04:42 Room Air 99 08/02/23 04:20 Room Air 08/02/23 04:15 92.6 F L 62 10 L 214/100 97 Room Air Intake and Output 08/01/23 08/02/23 08/02/23 23:59 07:59 15:59 Output Total 700 / 700 Balance -700 / -700 Weight 86 kg 86 kg Output: Urine 700 / 700 Patient Weight 08/02/23 23:59 Weight 86 kg Laboratory Findings 08/02/23 04:24 08/02/23 04:24 Labs: Laboratory Results - last 24 hr 08/02/23 08/02/23 08/02/23 04:13 04:15 04:24 WBC 14.5 H RBC 4.51 Hgb 14.0 Hct 40.5 L MCV 89.8 MCH 31.0 MCHC 34.6 RDW Coeff of Emigdio 13.1 Plt Count 285 MPV 11.4 Neut % (Auto) 87.4 H Lymph % (Auto) 6.3 L [place] % (Auto) 3.4 L Eos % (Auto) 2.0 Baso % (Auto) 0.3 Neut # (Auto) 12.71 H Lymph # (Auto) 0.92 [place] # (Auto) 0.50 Eos # (Auto) 0.29 Baso # (Auto) 0.04 ABG pH 7.34 L ABG pCO2 41 ABG pO2 82.2 ABG HCO3 22 ABG O2 Saturation 95.1 L ABG O2 Content 17.9 ABG Base Excess -3.6 ABG Methemoglobin 0.3 ABG Sodium 139 ABG Potassium 4.5 ABG Lactate 0.7 Hemoglobin 14.0 Carboxyhemoglobin 4.1 H FiO2 21 PHA Creatinine Clear 32 Sodium 139 Potassium 4.2 Chloride 106 Carbon Dioxide 26 Anion Gap 11 BUN 48 H Creatinine 2.585 H GFR Calculation 28 L Glucose 30 L* Whole Bld Glucose 39 L* Glucometer 55 L Hemoglobin A1c 12.0 H C-Peptide Calcium 9.4 Ioniz Calcium pH Adjus 1.19 Total Bilirubin Direct Bilirubin AST ALT Alkaline Phosphatase Total Protein Albumin Procalcitonin TSH Free T4 Urine Color Urine Appearance Urine pH Ur Specific Lawrence Urine Protein Urine Glucose (UA) Urine Ketones Urine Blood Urine Nitrite Urine Bilirubin Urine Urobilinogen Ur Leukocyte Esterase Urine RBC Urine WBC Ur Squamous Epith Cells Urine Bacteria Hyaline Casts Urine Opiates Screen Ur Buprenorphine Scrn U 6-Acetylmorphine Scrn Ur Oxycodone Screen Urine Methadone Screen Urine Fentanyl Screen Ur Barbiturates Screen Ur Amphetamines Screen U Benzodiazepines Scrn Urine Cocaine Screen U Marijuana (THC) Screen Ur Drug Screen Comment 08/02/23 08/02/23 08/02/23 04:38 05:15 05:54 WBC RBC Hgb Hct MCV MCH MCHC RDW Coeff of Emigdio Plt Count MPV Neut % (Auto) Lymph % (Auto) [place] % (Auto) Eos % (Auto) Baso % (Auto) Neut # (Auto) Lymph # (Auto) [place] # (Auto) Eos # (Auto) Baso # (Auto) ABG pH ABG pCO2 ABG pO2 ABG HCO3 ABG O2 Saturation ABG O2 Content ABG Base Excess ABG Methemoglobin ABG Sodium ABG Potassium ABG Lactate Hemoglobin Carboxyhemoglobin FiO2 PHA Creatinine Clear Sodium Potassium Chloride Carbon Dioxide Anion Gap BUN Creatinine GFR Calculation Glucose Whole Bld Glucose Glucometer 156 H 111 H 96 Hemoglobin A1c C-Peptide Calcium Ioniz Calcium pH Adjus Total Bilirubin Direct Bilirubin AST ALT Alkaline Phosphatase Total Protein Albumin Procalcitonin TSH Free T4 Urine Color Urine Appearance Urine pH Ur Specific Lawrence Urine Protein Urine Glucose (UA) Urine Ketones Urine Blood Urine Nitrite Urine Bilirubin Urine Urobilinogen Ur Leukocyte Esterase Urine RBC Urine WBC Ur Squamous Epith Cells Urine Bacteria Hyaline Casts Urine Opiates Screen Ur Buprenorphine Scrn U 6-Acetylmorphine Scrn Ur Oxycodone Screen Urine Methadone Screen Urine Fentanyl Screen Ur Barbiturates Screen Ur Amphetamines Screen U Benzodiazepines Scrn Urine Cocaine Screen U Marijuana (THC) Screen Ur Drug Screen Comment 08/02/23 08/02/23 08/02/23 07:02 07:03 07:23 WBC RBC Hgb Hct MCV MCH MCHC RDW Coeff of Emigdio Plt Count MPV Neut % (Auto) Lymph % (Auto) [place] % (Auto) Eos % (Auto) Baso % (Auto) Neut # (Auto) Lymph # (Auto) [place] # (Auto) Eos # (Auto) Baso # (Auto) ABG pH ABG pCO2 ABG pO2 ABG HCO3 ABG O2 Saturation ABG O2 Content ABG Base Excess ABG Methemoglobin ABG Sodium ABG Potassium ABG Lactate Hemoglobin Carboxyhemoglobin FiO2 PHA Creatinine Clear Sodium Potassium Chloride Carbon Dioxide Anion Gap BUN Creatinine GFR Calculation Glucose Whole Bld Glucose Glucometer 97 102 Hemoglobin A1c C-Peptide 2.00 Calcium Ioniz Calcium pH Adjus Total Bilirubin 0.4 Direct Bilirubin 0.1 AST 18 ALT 14 Alkaline Phosphatase 100 Total Protein 6.0 Albumin 3.1 L Procalcitonin 0.11 TSH 1.144 Free T4 1.16 Urine Color Urine Appearance Urine pH Ur Specific Lawrence Urine Protein Urine Glucose (UA) Urine Ketones Urine Blood Urine Nitrite Urine Bilirubin Urine Urobilinogen Ur Leukocyte Esterase Urine RBC Urine WBC Ur Squamous Epith Cells Urine Bacteria Hyaline Casts Urine Opiates Screen Ur Buprenorphine Scrn U 6-Acetylmorphine Scrn Ur Oxycodone Screen Urine Methadone Screen Urine Fentanyl Screen Ur Barbiturates Screen Ur Amphetamines Screen U Benzodiazepines Scrn Urine Cocaine Screen U Marijuana (THC) Screen Ur Drug Screen Comment 08/02/23 08/02/23 08/02/23 08:32 09:53 10:20 WBC RBC Hgb Hct MCV MCH MCHC RDW Coeff of Emigdio Plt Count MPV Neut % (Auto) Lymph % (Auto) [place] % (Auto) Eos % (Auto) Baso % (Auto) Neut # (Auto) Lymph # (Auto) [place] # (Auto) Eos # (Auto) Baso # (Auto) ABG pH ABG pCO2 ABG pO2 ABG HCO3 ABG O2 Saturation ABG O2 Content ABG Base Excess ABG Methemoglobin ABG Sodium ABG Potassium ABG Lactate Hemoglobin Carboxyhemoglobin FiO2 PHA Creatinine Clear Sodium Potassium Chloride Carbon Dioxide Anion Gap BUN Creatinine GFR Calculation Glucose Whole Bld Glucose Glucometer 105 124 H Hemoglobin A1c C-Peptide Calcium Ioniz Calcium pH Adjus Total Bilirubin Direct Bilirubin AST ALT Alkaline Phosphatase Total Protein Albumin Procalcitonin TSH Free T4 Urine Color Yellow Urine Appearance Clear Urine pH 5.0 Ur Specific Lawrence 1.015 Urine Protein 300 A Urine Glucose (UA) 500 A Urine Ketones Negative Urine Blood Trace A Urine Nitrite Negative Urine Bilirubin Negative Urine Urobilinogen 0.2 Ur Leukocyte Esterase Negative Urine RBC 1 Urine WBC 0 Ur Squamous Epith Cells 0 Urine Bacteria None Hyaline Casts 6 H Urine Opiates Screen None Detected Ur Buprenorphine Scrn None Detected U 6-Acetylmorphine Scrn None Detected Ur Oxycodone Screen None Detected Urine Methadone Screen None Detected Urine Fentanyl Screen None Detected Ur Barbiturates Screen None Detected Ur Amphetamines Screen None Detected U Benzodiazepines Scrn None Detected Urine Cocaine Screen None Detected U Marijuana (THC) Screen None Detected Ur Drug Screen Comment Diagnostic Findings Additional studies: ITS Impressions Head CT 08/02/23 05:14 IMPRESSION: 1. No CT evidence of acute intracranial hemorrhage, midline shift or mass- effect. 2. Hypodense changes within right and left side of the cerebellum. Concerningfor underlying infarct. CT appearance suggest subacute-chronic age. Chest X-Ray 08/02/23 07:15 IMPRESSION: No radiographic evidence of acute pulmonary disease identified. Radiology Impressions: ITS Impressions Head CT 08/02/23 05:14 IMPRESSION: 1. No CT evidence of acute intracranial hemorrhage, midline shift or mass- effect. 2. Hypodense changes within right and left side of the cerebellum. Concerningfor underlying infarct. CT appearance suggest subacute-chronic age. Chest X-Ray 08/02/23 07:15 IMPRESSION: No radiographic evidence of acute pulmonary disease identified. Assessment and Plan Assessment and plan (1) Altered mental state: Status: Acute (2) Abnormal CT of brain: Status: Acute Plan Altered mental status most likely due to hypoglycemia given patient presented with blood glucose of 50 on finger stick as per EMS Other comorbidities include past medical history of CVA, blood pressure, type 2 diabetes mellitus, BPH, hypothyroid Patient now alert oriented x3, back to baseline, no new focal neurological deficit CT head without contrast showed no acute hemorrhage or midline shift however showed hypodense changes within the right and left side of the cerebellum, MRI brain without contrast ordered. Patient at home on aspirin 81 mg, Plavix 75 mg and statin 80 mg. 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 Rest of the management per primary team Documented By: Marcelino Abel M.D. 08/02/23 1107 Signed By: <Electronically signed by Marcelino Abel M.D.> 08/02/23 6890 [facility] Work Phone: [phone]) 663-491410-20-2023 History and physical note Author Harjeet Ruelas [facility] August 02, 2023 2:16pm Note Date/Time August 02, 2023 1 1:18am [place] [address] Internal Med History&Physical Signed Patient: Chandler Minor MR#: [id number] : 1970 Acct: [id number] Age/Sex: 53 / M Date of Service: 08/02/23 Loc: [facility] 4828-[address]: Helen Jovel M.D. cc: Harjeet Ruelas M.D.~ History of Present Illness History of Present Illness Date of service: 08/02/23 Chief complaint: Altered mental status, hypoglycemia, hypothermia Narrative: Chandler Minor is a 53 year old male current smoker with past medical history ofCVA, HTN, type 2 diabetes mellitus, BPH, hypothyroid presented to ED with complaints of altered mental status. Patient is currently alert oriented x3. Patient reports no remembrance of falling down. Patient glucose level was in 500s last night so he took lispro 15units as per sliding scale protocol and Lantus 42 units. Patient denied having new focal numbness or new weakness, slurred speech, facial droop, fever, cough, sore throat, chest pain, difficulty breathing, nausea, vomiting, abdominal pain,chest pain, blood in urine, blood in stool, burning micturition. Patient reports that he came to [place] to see his mom. Patient reports chronic right-sided weakness and dysphagia since stroke which was 3 years ago. In ED patient labs WBC 14.5, hemoglobin 14, platelet count 285, pH 7.34, PCO2 41, PO2 82.2, BUN/creatinine 48/2.58, glucose 30, hemoglobin A1c 12, C-peptide 2, unremarkable LFTs, procalcitonin 0.11, TSH 1.144, free T41.16. UA unremarkable. Urine drug screen not detected. CT head reported no CT evidence of acute intraocular hemorrhage or midline shift or mass effect, hypodense changes within right and left-side of the cerebellum. Chest x-ray reported no radiographic evidence of acute pulmonary disease. In ED patient was hypothermicso he is put on Gabriel hugger. Patient presented with glucose level of 30s so he was given D50 and started on D10 drip. Review of Systems Const Constitutional: Reports system reviewed and no additional complaints, except as documented Eyes Eyes: Reports system reviewed and no additional complaints, except as documented ENT ENT: Reports system reviewed and no additional complaints, except as documented Cardio Cardiology: Reports system reviewed and no additional complaints, except as documented Resp Respiratory: Reports system reviewed and no additional complaints, except as documented Gastro GI: Reports system reviewed and no additional complaints, except as documented Genitou Genitourinary male: Reports system reviewed and no additional complaints, exceptas documented Musculo Symptoms musculoskeletal: Reports system reviewed and no additional complaints, except as documented Skin/Breast Symptoms integumentary/breasts: Reports system reviewed and no additional complaints, except as documented Neurologic Neurologic: Reports system reviewed and no additional complaints, except as documented Endocrine Symptoms endocrine: Reports system reviewed and no additional complaints, exceptas documented PFSH PFSH Medical History BPH (benign prostatic hyperplasia) CVA (cerebral vascular accident) Diabetes Hypertension Hypothyroid Surgical History Hx of right BKA Family History Other Family history non-contributory Social History Advance Directives: No Advance Directives Information Provided: No Advance Directives on File: No Would like to be referred to Health Education Coordinator for info?: No Smoking Status: Current every day smoker Non prescribed substance use: denies use Marital status: Unknown household members: spouse Highest level of school completed/degree received: GED or equivalent Have You Been Hit, Kicked, Punched, or Otherwise Hurt By Someone Within the PastYear? If So, By Whom?: No Do you feel safe in your current relationship?: No Is There a Partner from a Previous Relationship Who is Making You Feel Unsafe Now?: No Other Family history non-contributory BPH (benign prostatic hyperplasia) CVA (cerebral vascular accident) Diabetes Hypertension Hypothyroid Meds Home Medications and Allergies Home Medications Medication Instructions Recorded Confirmed Type albuterol sulfate 90 mcg/actuation 2 puff inhalation Q4H PRN 08/02/23 08/02/23 History aerosol inhaler Shortness Of Breath Or Wheezing ascorbic acid (vitamin C) 500 mg 500 mg ORAL DAILY supplement 08/02/23 08/02/23 History tablet aspirin 81 mg tablet,delayed 81 mg ORAL DAILY heart health 08/02/23 08/02/23 History release atorvastatin 80 mg tablet 80 mg ORAL PM cholesterol 08/02/23 08/02/23 History bumetanide 2 mg tablet 2 mg ORAL BIDAC water pill 08/02/23 08/02/23 History carvedilol 25 mg tablet 25 mg ORAL BID blood pressure 08/02/23 08/02/23 History citalopram 20 mg tablet 20 mg ORAL DAILY mood 08/02/23 08/02/23 History clopidogrel 75 mg tablet 75 mg ORAL DAILY blood thinner 08/02/23 08/02/23 History empagliflozin 10 mg tablet 10 mg ORAL DAILY diabetes 08/02/23 08/02/23 History (Jardiance) ergocalciferol (vitamin D2) 1,250 50,000 unit ORAL QWEEK supplement 08/02/23 08/02/23 History mcg (50,000 unit) capsule (Vitamin D2) fluticasone propionate 50 2 spray intranasal DAILY PRN 08/02/23 08/02/23 History mcg/actuation nasal allergies spray,suspension insulin detemir U-100 100 unit/mL 42 unit subcut BID diabetes 08/02/23 08/02/23 History (3 mL) subcutaneous pen insulin lispro 100 unit/mL 1 sliding scale dose subcut TID 08/02/23 08/02/23 History subcutaneous pen (Humalog KwikPen diabetes (U-100) Insulin) isosorbide mononitrate 60 mg 60 mg ORAL DAILY blood pressure 08/02/23 08/02/23 History tablet,extended release 24 hr levothyroxine 25 mcg tablet 25 mcg ORAL DAILY thyroid 08/02/23 08/02/23 History liraglutide 0.6 mg/0.1 mL (18 mg/3 1.8 mg subcut DAILY diabetes 08/02/23 08/02/23 History mL) subcutaneous pen injector (Victoza 3-Crista) losartan 50 mg tablet 50 mg ORAL DAILY blood pressure 08/02/23 08/02/23 History nitroglycerin 0.4 mg sublingual 0.4 mg sublingual Q5M PRN Chest 08/02/23 08/02/23 History tablet Pain nystatin 100,000 unit/gram topical 1 applic topical DAILY PRN Skin 08/02/23 08/02/23 History powder (Nyamy) Irritation omeprazole 20 mg capsule,delayed 20 mg ORAL DAILY gerd 08/02/23 08/02/23 History release polyethylene glycol 3350 17 gram 17 g ORAL DAILY PRN Constipation 08/02/23 08/02/23 History oral powder packet potassium chloride 20 mEq 20 meq ORAL DAILY supplement 08/02/23 08/02/23 History tablet,extended release ropinirole 2 mg tablet 2 mg ORAL TID restless leg 08/02/23 08/02/23 History tamsulosin 0.4 mg capsule 0.4 mg ORAL BEDTIME bph 08/02/23 08/02/23 History terazosin 2 mg capsule 2 mg ORAL DAILY blood pressure 08/02/23 08/02/23 History trazodone 50 mg tablet 50 mg ORAL BEDTIME sleep 08/02/23 08/02/23 History Allergies Allergy/AdvReac Type Severity Reaction Status Date / Time promethazine [From Phenergan] Allergy Unknown Verified 08/02/23 06:47 Exam Narrative Exam Narrative: General?moderate to severe distress due to generalized weakness Neck?no JVD or lymphadenopathy Head?mucous membranes are moist, no epistaxis noticed. 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 Extremities?no pedal edema or cyanosis or clubbing noticed. Right BKA. Psych?normal mood, no anxiety or depression or agitation noticed. Results Vitals Vital signs: Vital Signs - 24 hr 08/02/23 04:15 08/02/23 04:20 08/02/23 04:42 Temperature 92.6 F L Pulse Rate 62 Respiratory Rate 10 L Blood Pressure 214/100 Pulse Oximetry 97 Oxygen Delivery Method Room Air Room Air Room Air Oxygen Flow Rate 99 08/02/23 04:42 08/02/23 04:36 08/02/23 05:44 Temperature 92.6 F L 93.7 F L Pulse Rate 62 Respiratory Rate 17 Blood Pressure 126/73 Pulse Oximetry 100 Oxygen Delivery Method Oxygen Flow Rate 08/02/23 06:34 08/02/23 07:25 08/02/23 07:44 Temperature 94.2 F L 94.5 F L Pulse Rate 70 66 Respiratory Rate 18 14 Blood Pressure 96/64 78/60 Pulse Oximetry 98 Oxygen Delivery Method Room Air Oxygen Flow Rate 08/02/23 04:50 08/02/23 04:55 08/02/23 05:12 Temperature Pulse Rate 56 L 70 59 L Respiratory Rate 15 14 12 Blood Pressure Pulse Oximetry 100 100 Oxygen Delivery Method Oxygen Flow Rate 08/02/23 05:14 08/02/23 05:15 08/02/23 05:20 Temperature Pulse Rate 59 L 59 L 60 Respiratory Rate 15 19 6 L Blood Pressure 133/76 Pulse Oximetry 99 100 96 Oxygen Delivery Method Oxygen Flow Rate 08/02/23 05:25 08/02/23 05:30 08/02/23 05:31 Temperature Pulse Rate 59 L 61 60 Respiratory Rate 13 15 13 Blood Pressure 128/77 Pulse Oximetry 100 100 99 Oxygen Delivery Method Oxygen Flow Rate 08/02/23 05:35 08/02/23 05:40 08/02/23 05:45 Temperature Pulse Rate 62 63 62 Respiratory Rate 14 16 20 Blood Pressure Pulse Oximetry Oxygen Delivery Method Oxygen Flow Rate 08/02/23 05:50 08/02/23 05:55 08/02/23 06:00 Temperature Pulse Rate 62 61 62 Respiratory Rate 15 19 12 Blood Pressure Pulse Oximetry 100 99 98 Oxygen Delivery Method Oxygen Flow Rate 08/02/23 06:01 08/02/23 06:05 08/02/23 06:10 Temperature Pulse Rate 63 63 62 Respiratory Rate 15 25 H 15 Blood Pressure 123/68 Pulse Oximetry 100 99 98 Oxygen Delivery Method Oxygen Flow Rate 08/02/23 06:15 08/02/23 06:20 08/02/23 06:25 Temperature Pulse Rate 62 63 64 Respiratory Rate 15 12 13 Blood Pressure Pulse Oximetry 99 100 99 Oxygen Delivery Method Oxygen Flow Rate 08/02/23 06:30 08/02/23 06:31 08/02/23 06:35 Temperature Pulse Rate 63 63 63 Respiratory Rate 15 15 Blood Pressure 96/64 Pulse Oximetry 97 99 Oxygen Delivery Method Oxygen Flow Rate 08/02/23 06:40 08/02/23 06:45 08/02/23 06:50 Temperature Pulse Rate 64 64 64 Respiratory Rate 16 15 Blood Pressure Pulse Oximetry 98 96 Oxygen Delivery Method Oxygen Flow Rate 08/02/23 06:55 08/02/23 07:00 08/02/23 07:02 Temperature Pulse Rate 65 65 66 Respiratory Rate 0 L 11 L 17 Blood Pressure Pulse Oximetry 97 98 89 Oxygen Delivery Method Oxygen Flow Rate 08/02/23 07:05 08/02/23 07:07 08/02/23 07:10 Temperature Pulse Rate 66 65 67 Respiratory Rate 18 14 14 Blood Pressure Pulse Oximetry 99 88 99 Oxygen Delivery Method Oxygen Flow Rate 08/02/23 07:15 08/02/23 07:19 08/02/23 07:20 Temperature Pulse Rate 66 66 67 Respiratory Rate 10 L 22 Blood Pressure 72/49 73/52 Pulse Oximetry 99 99 97 Oxygen Delivery Method Oxygen Flow Rate 08/02/23 07:21 08/02/23 07:22 08/02/23 07:25 Temperature Pulse Rate 67 73 67 Respiratory Rate 18 17 13 Blood Pressure 76/59 Pulse Oximetry 98 96 82 Oxygen Delivery Method Oxygen Flow Rate 08/02/23 07:30 08/02/23 07:31 08/02/23 07:32 Temperature Pulse Rate 67 68 68 Respiratory Rate 11 L 11 L 15 Blood Pressure 76/51 74/60 Pulse Oximetry 98 95 88 Oxygen Delivery Method Oxygen Flow Rate 08/02/23 07:35 08/02/23 07:36 08/02/23 07:39 Temperature Pulse Rate 68 68 69 Respiratory Rate 19 10 L 19 Blood Pressure 80/60 81/63 Pulse Oximetry 95 86 93 Oxygen Delivery Method Oxygen Flow Rate 08/02/23 07:40 08/02/23 07:42 08/02/23 07:45 Temperature Pulse Rate 69 69 70 Respiratory Rate 9 L 20 16 Blood Pressure 87/60 Pulse Oximetry 90 92 95 Oxygen Delivery Method Oxygen Flow Rate 08/02/23 07:50 08/02/23 07:52 08/02/23 07:53 Temperature Pulse Rate 69 69 68 Respiratory Rate 13 14 13 Blood Pressure 97/66 Pulse Oximetry 97 100 99 Oxygen Delivery Method Oxygen Flow Rate 08/02/23 07:55 08/02/23 08:00 08/02/23 08:01 Temperature Pulse Rate 68 68 69 Respiratory Rate 17 10 L 15 Blood Pressure 96/65 Pulse Oximetry 95 94 97 Oxygen Delivery Method Oxygen Flow Rate 08/02/23 08:02 08/02/23 08:22 Temperature 97.7 F Pulse Rate 69 68 Respiratory Rate 15 16 Blood Pressure 117/70 Pulse Oximetry 100 98 Oxygen Delivery Method Room Air Oxygen Flow Rate I & O 08/02/23 08/02/23 08/02/23 09:59 10:59 11:59 Output Total 700 / 700 Balance -700 / -700 Labs 08/02/23 04:24 08/02/23 04:24 Labs: Short CBC 08/02/23 Range/Units 04:24 WBC 14.5 H (4.5-11.0) 10*3/uL Hgb 14.0 (13.5-17.7) g/dL Hct 40.5 L (41.0-53.0) % Plt Count 285 (133-425) 10*3/uL BMP 08/02/23 04:24 Sodium 139 Potassium 4.2 Chloride 106 Carbon Dioxide 26 Anion Gap 11 BUN 48 H Creatinine 2.585 H Glucose 30 L* Calcium 9.4 Liver Function 08/02/23 Range/Units 07:02 Total Bilirubin 0.4 (0.3-1.2) mg/dL Direct Bilirubin 0.1 (<0.4) mg/dL AST 18 (<34) U/L ALT 14 (10-49) U/L Alkaline Phosphatase 100 (46-116) U/L Albumin 3.1 L (3.4-5.0) g/dL Urine 08/02/23 Range/Units 10:20 Urine Color Yellow (Yellow) Urine Appearance Clear (Clear) Urine pH 5.0 (<=7.5) Ur Specific Lawrence 1.015 (1.005-1.025) Urine Protein 300 A (Negative) Urine Glucose (UA) 500 A (Negative) mg/dL Radiology Impressions Radiologist's Impressions: ITS Impressions Head CT 08/02/23 05:[address]: [address] evidence of acute intracranial hemorrhage, midline shift or mass- effect. 2. Hypodense changes within right and left side of the cerebellum. Concerningfor underlying infarct. CT appearance suggest subacute-chronic age. Chest X-Ray 08/02/23 07:15 IMPRESSION: No radiographic evidence of acute pulmonary disease identified. Assessment and Plan Assessment and plan (1) Altered mental state: Status: Acute Assessment and Plan: Most likely due to hypoglycemia CT head reported no evidence of intracranial hemorrhage or midline shift or masseffect, hypodense changes within the right and left cerebral cerebellum Neurology on board Further testing/imaging as per neurology (2) Hypoglycemia: Status: Acute Assessment and Plan: C-peptide 2 Continue with D10 at 75 mill per hour POC glucose ACHS Held insulin (3) Hypothermia: Status: Acute Assessment and Plan: most likely due to hypoglycemia IV hydrocortisone 100 mg x 1 dose. (4) CKD (chronic kidney disease), stage IV: Status: Acute Assessment and Plan: BUNs/creatinine 48/2.58 No baseline records Renal ultrasound reported unremarkable Renally dose medication Avoid nephrotoxic medication Monitor BUNs/creatinine (5) Leukocytosis: Status: Acute Assessment and Plan: Reactive due to hypoglycemia (6) Diabetes: Status: Chronic Assessment and Plan: Held insulin due to hypoglycemia (7) Abnormal CT of brain: Status: Acute Assessment and Plan: Neurology on board (8) Hypertension: Status: Chronic Assessment and Plan: Resume home dose Coreg, Imdur, losartan, Bumex, terazosin (9) CVA (cerebral vascular accident): Status: Chronic Assessment and Plan: Resume home dose aspirin, atorvastatin (10) Hypothyroid: Status: Chronic Assessment and Plan: Resume home dose levothyroxine (11) BPH (benign prostatic hyperplasia): Status: Chronic Assessment and Plan: Resume home dose tamsulosin Plan DVT prophylaxis heparin subcu Cardiac diet Full code I spent 75 minutes speaking to patient, reviewing chart and documenting the note. Quality Measure Queries VTE DVT/PE Present on Hospitalization: No Documented By: Harjeet Ruelas M.D. 08/02/23 1114 Signed By: <Electronically signed by Harjeet Ruelas M.D.> 08/02/23 1416 [facility] Work Phone: 1(326) 598-269710-20-2023 Progress note Author Christopher Santiago [facility] August 02, 2023 6:27am Note Date/Time August 02, 2023 4 :27am [place] [address] Emergency Department Note Signed Patient: Chandler Minor MR#: [id number] : 1970 Acct: [id number] Age/Sex: 53 / M Date of Service: 08/02/23 Loc: ER.[facility] Attending Dr: cc: ~ HPI - Altered Mental Status General Chief Complaint: Altered Mental Status Stated Complaint: low gluc Time Seen by Provider: 08/02/23 04:20 Source: EMS Mode of arrival: EMS Limitations: altered mental status History of Present Illness HPI narrative: EMS reports they were called to the patient's residence because of altered mental status and fall. Report from family states that earlier in the evening approximately 9 PM his blood sugar was over 500. States that he administered some insulin and went to sleep. States family then heard him fall in the early hours of this morning and when they went to check on him he was unresponsive so EMS was called. EMS reports whenever they checked a fingerstick it was 50. States that they were not able to start an IV and did not have access to IM glucagon so they gave oral glucose. Upon arrival the patient was received in room #3. His fingerstick for us was 38 and his core temperature was 92.6. Review of Systems ROS: ROS Unobtainable: Yes unobtainable due to mental status PFSH PFS Medical History (Updated 08/02/23 @ 05:23 by Christopher Santiago DO) Diabetes Social History Advance Directives: No Advance Directives Information Provided: No Advance Directives on File: No Would like to be referred to Health Education Coordinator for info?: No Smoking Status: Never smoker (Updated 08/02/23 @ 05:23 by Christopher Santiago DO) Diabetes Exam Const Exam limitations: altered mental status General appearance: lethargic Nutritional appearance: obese Orientation/consciousness: lethargic Accompanied by: nobody Other: Patient was initially lethargic and not interactive however after initiation of peripheral IV and dextrose the patient is awake and answers questions and follows commands. HEENT Common normals: normocephalic, atraumatic, external ears normal and Normal external nose present Head and scalp: normocephalic and atraumatic Face and sinus: normal facial exam Nose: Normal external nose present External ear: external ears normal Other: Moist mucous membranes Eye Common normals: Equal, round and reactive pupils present (3 mm reactive bilaterally) and conjunctivae normal Periorbital: periorbital findings normal Eyelid: eyelids normal Conjunctiva: conjunctivae normal Pupil: Equal, round and reactive pupils present (3 mm reactive bilaterally) Neck & C-Spine Common normals: full ROM and supple Other: No obvious signs of trauma. Respiratory Common normals: normal respiratory effort and clear to auscultation bilaterally Auscultation: clear to auscultation bilaterally, no rales, no rhonchi and no wheezes Cardio Common normals: regular rate, regular rhythm, No gallops present (Cardio), No murmurs present (Cardio) and No rub (Cardio) Rate: regular rate Rhythm: regular rhythm GI Common normals: Soft to palpation and non-tender Inspection: No abdominal distension Auscultation: normoactive bowel sounds Palpation: Soft to palpation, No Guarding due to palpation present (GI) and No Rigid due to palpation Extremity Common normals: full ROM, capillary refill normal and no clubbing, cyanosis or edema Other: Patient with prior history of right-sided BKA Neuro Daniel Coma Scale: document GCS findings Daniel Coma Scale Eye Opening: No response Washburn coma scale verbal response: No response Daniel Coma Scale Motor Response: Withdraws in response to pain Washburn coma scale total score: 6 Sensorium/orientation: lethargic Other: Patient's initial GCS was 6. After IV dextrose GCS is now 14. Patient is awakealert does answer questions does move extremities x4. Skin Skin Exam: Limited skin exam was performed of exposed skin area Common normals: Yes no rashes or lesions noted, Yes no jaundice, Yes no petechiae and Yes no mottling General skin exam: no rashes or lesions noted Course Reevaluation(s) Reevaluation #1: After D50 patient is now answering some questions he still appears to be somnolent but he is following commands. Patient's core temp is 92.6. We have instituted external active rewarming measures. Time: 04:26 Reevaluation #2: Patient's repeat rectal temp was 93.7. He continues to be awake and alert. Family is now at bedside. Time: 05:46 Consultations Consultation #1: Discussed case with Dr. Jovel. She recommends discussion with ICU and then to call her back if needed. Time: 05:53 Consultation #2: Discussed case with both Zac Arguello, ICU [facility] and Dr. Jovel. They both agreedto accept patient to the floor. Time: 06:09 Vital Signs Vital signs: Vital Signs Temperature 92.6 F L 08/02/23 04:15 Pulse Rate 62 08/02/23 04:15 Respiratory Rate 10 L 08/02/23 04:15 Blood Pressure 214/100 08/02/23 04:15 Pulse Oximetry 97 08/02/23 04:15 Oxygen Delivery Method Room Air 08/02/23 04:15 Temperature 93.7 F L 08/02/23 05:44 Pulse Rate 62 08/02/23 04:36 Respiratory Rate 17 08/02/23 04:36 Blood Pressure 126/73 08/02/23 04:36 Pulse Oximetry 100 08/02/23 04:36 Oxygen Delivery Method Room Air 08/02/23 04:42 Oxygen Flow Rate 99 08/02/23 04:42 Oxygen Delivery/Flow Rate/FiO2 Oxygen Delivery Method Room Air 08/02/23 04:42 Oxygen Delivery Method Room Air 08/02/23 04:15 Oxygen Flow Rate 99 08/02/23 04:42 MDM - Altered Mental Status MDM Narrative Medical decision making narrative: 53-year-old male presenting to the ED from home with complaints of altered mental status. Per EMS it was noted the patient reportedly had an elevated blood sugar over 500 earlier in the night and he gave himself insulin. States that family heard a thump and went to check on him in. He had fallen in the floor but they were unable to wake him. They called EMS and his blood sugar waslow and they brought him to the ED. Patient was hypoglycemic with a fingerstickof 38 and core hypothermia with a rectal temp of 92.6. We instituted external rewarming as well as established an IV with dextrose and the patient is much more awake and alert after this. Further laboratory studies reveal a white count of 14.5 with a hemoglobin of 14 with 87% neutrophils. Patient's ABG did show pH of 7.34 basic metabolic panel showed a creatinine of 2.585 with a glucose of 30 however this was obtained prior to initiation of the dextrose. I have no previous labs to compare to. At this time we are going to recheck the patient's temperature to determine ultimate disposition for admission. Recheck of the temperature showed core of 93.7. Repeat fingerstick blood glucose was 96. I spoke initially with Dr. Jovel then Zac Arguello from the ICU and ultimately upon discussion we have determined the patient be admitted to PCU to Dr. Jovel. Patient continues to be stable at this time. I have initiated D10 for continued hydration and glucose containing fluids. Consultations and care reviewed with: Dr. Jovel, hospitalist medicine; Zac Arguello, ICU [facility] Diagnosis and Disposition: Primary Impression: Hypoglycemia, core hypothermia Secondary Impression: Disposition Plan: Admit to PCU Diagnosis or treatment was significantly limited by social determinants of health including . PDMP reviewed when applicable. Complicating comorbidities include but are not limited to hyperglycemia. External notes/medical records reviewed from none available. Differential diagnoses included but are not limited to altered mental status, hypoglycemia, hypothermia, intracranial injury. EKG/Rhythm strip independently reviewed and interpreted by me (see interpretation). Lab results reviewed by me and significant results are highlighted in the diagnostics section of the [facility] record. Imaging studies reviewed and interpreted by myself and the radiologist. Radiology interpretations are found in the diagnostics section of the [facility] record. Lab Data 08/02/23 04:24 08/02/23 04:24 Labs: Lab Results 08/02/23 08/02/23 08/02/23 Range/Units 04:13 04:15 04:24 WBC 14.5 H (4.5-11.0) 10*3/uL RBC 4.51 (3.90-5.90) 10*6/uL Hgb 14.0 (13.5-17.7) g/dL Hct 40.5 L (41.0-53.0) % MCV 89.8 (81.7-97.1) fL MCH 31.0 (27.2-33.0) pg MCHC 34.6 (31.9-35.1) g/dL RDW Coeff of Emigdio 13.1 (11.6-14.8) % Plt Count 285 (133-425) 10*3/uL MPV 11.4 (8.6-12.2) fL Neut % (Auto) 87.4 H (41.1-75.9) % Lymph % (Auto) 6.3 L (13.4-45.1) % [place] % (Auto) 3.4 L (4.0-12.7) % Eos % (Auto) 2.0 (0.0-5.8) % Baso % (Auto) 0.3 (0.0-1.3) % Neut # (Auto) 12.71 H (1.70-7.00) 10*3/uL Lymph # (Auto) 0.92 (0.80-3.30) 10*3/uL [place] # (Auto) 0.50 (0.30-0.90) 10*3/uL Eos # (Auto) 0.29 (0.00-0.50) 10*3/uL Baso # (Auto) 0.04 (0.00-0.10) 10*3/uL ABG pH 7.34 L (7.35-7.45) ABG pCO2 41 (32-53) mm[Hg] ABG pO2 82.2 (80-110) mm[Hg] ABG HCO3 22 (22-26) mmol/L ABG O2 Saturation 95.1 L (96-97) % ABG O2 Content 17.9 (17-100) mL/dL ABG Base Excess -3.6 mmol/L ABG Methemoglobin 0.3 (0.0-0.3) % ABG Sodium 139 (136-145) mmol/L ABG Potassium 4.5 (3.5-5.1) mmol/L ABG Lactate 0.7 (0.5-1.6) mmol/L Hemoglobin 14.0 (12.2-18.1) g/dL Carboxyhemoglobin 4.1 H (0.1-2.5) % FiO2 21 % PHA Creatinine Clear 32 Sodium 139 (136-145) mmol/L Potassium 4.2 (3.5-5.1) mmol/L Chloride 106 (98-107) mmol/L Carbon Dioxide 26 (20-31) mmol/L Anion Gap 11 (7-17) mmol/L BUN 48 H (9-23) mg/dL Creatinine 2.585 H (0.70-1.30) mg/dL GFR Calculation 28 L (60 - ) mL/min Glucose 30 L* (74-106) mg/dL Whole Bld Glucose 39 L* (70-110) mg/dL Glucometer 55 L (70-110) mg/dL Calcium 9.4 (8.3-10.6) mg/dL Ioniz Calcium pH Adjus 1.19 (1.01-1.33) mmol/L 08/02/23 08/02/23 08/02/23 Range/Units 04:38 05:15 05:54 WBC (4.5-11.0) 10*3/uL RBC (3.90-5.90) 10*6/uL Hgb (13.5-17.7) g/dL Hct (41.0-53.0) % MCV (81.7-97.1) fL MCH (27.2-33.0) pg MCHC (31.9-35.1) g/dL RDW Coeff of Emigdio (11.6-14.8) % Plt Count (133-425) 10*3/uL MPV (8.6-12.2) fL Neut % (Auto) (41.1-75.9) % Lymph % (Auto) (13.4-45.1) % [place] % (Auto) (4.0-12.7) % Eos % (Auto) (0.0-5.8) % Baso % (Auto) (0.0-1.3) % Neut # (Auto) (1.70-7.00) 10*3/uL Lymph # (Auto) (0.80-3.30) 10*3/uL [place] # (Auto) (0.30-0.90) 10*3/uL Eos # (Auto) (0.00-0.50) 10*3/uL Baso # (Auto) (0.00-0.10) 10*3/uL ABG pH (7.35-7.45) ABG pCO2 (32-53) mm[Hg] ABG pO2 (80-110) mm[Hg] ABG HCO3 (22-26) mmol/L ABG O2 Saturation (96-97) % ABG O2 Content (17-100) mL/dL ABG Base Excess mmol/L ABG Methemoglobin (0.0-0.3) % ABG Sodium (136-145) mmol/L ABG Potassium (3.5-5.1) mmol/L ABG Lactate (0.5-1.6) mmol/L Hemoglobin (12.2-18.1) g/dL Carboxyhemoglobin (0.1-2.5) % FiO2 % PHA Creatinine Clear Sodium (136-145) mmol/L Potassium (3.5-5.1) mmol/L Chloride (98-107) mmol/L Carbon Dioxide (20-31) mmol/L Anion Gap (7-17) mmol/L BUN (9-23) mg/dL Creatinine (0.70-1.30) mg/dL GFR Calculation (60 - ) mL/min Glucose (74-106) mg/dL Whole Bld Glucose (70-110) mg/dL Glucometer 156 H 111 H 96 (70-110) mg/dL Calcium (8.3-10.6) mg/dL Ioniz Calcium pH Adjus (1.01-1.33) mmol/L ABG Data ABG results: 08/02/23 04:15 ABG pH 7.34 L ABG pCO2 41 ABG pO2 82.2 ABG HCO3 22 ABG O2 Saturation 95.1 L ABG O2 Content 17.9 ABG Base Excess -3.6 ABG Methemoglobin 0.3 Radiologist Impression ITS Impressions Head CT 08/02/23 05:[address]: 1[address] evidence of acute intracranial hemorrhage, midline shift or mass- effect. 2. Hypodense changes within right and left side of the cerebellum. Concerning for underlying infarct. CT appearance suggest subacute-chronic age. Provider note Note: The patient will be hospitalized. The accepting provider was . A review of the patient's presentation and pertinent labs/radiographs were reviewed with the admitting provider. The plan was reviewed with the patient and family if available, and any questions were answered as best as able. Critical Care Time Critical Care Time Critical Care Time: Yes Total Critical Care Time (mins): 30 Attestation: The critical care time annotated includes time spent at bedside, discussions with medical staff, interpretations of laboratory and or imaging studies, review of records when available, and documentation of the encounter. This excludes all separately billable procedures. Sepsis Focused Exam Vital signs: Vital Signs Temp Pulse Resp BP Pulse Ox O2 Del Method O2 Flow Rate 08/02/23 05:44 93.7 F L 08/02/23 04:36 62 17 126/73 100 08/02/23 04:42 92.6 F L 08/02/23 04:42 Room Air 99 08/02/23 04:20 Room Air 08/02/23 04:15 92.6 F L 62 10 L 214/100 97 Room Air Discharge Plan Discharge Clinical Impression: Altered mental status, Hypoglycemia, Hypothermia Patient Disposition: Admitted As Inpatient Condition at Discharge: Good Referrals: None,Doctor, DO [Primary Care Provider] - Stand Alone Forms: Portal Instructions Interventions: ED Altered Mental Status Assessment Last Done: 08/02/23 04:42 Reported Code Status Last Done: 08/02/23 04:41 ED Immunizations Last Done: 08/02/23 04:41 Travel Information (v2) Last Done: 08/02/23 04:41 Vital Signs - Monitor Last Done: 08/02/23 05:44 ED Nurse Note Last Done: 08/02/23 05:21 Sepsis Bundle Checklist Last Done: 08/02/23 06:04 Discharge Disposition Location: Admit to PCU Documented By: Christopher Santiago D.O. 08/02/23 0425 Signed By: <Electronically signed by Christopher Santiago D.O.> 08/02/23 06 [facility] Work Phone: [phone]) 769-370710-20-2023 Progress note Author Christopher Santiago [facility] August 02, 2023 6:27am Note Date/Time August 02, 2023 4 :27am [facility] Main [address] [place] [address] Emergency Department Note Signed Patient: Chandler Minor MR#: [id number] : 1970 Acct: [id number] Age/Sex: 53 / M Date of Service: 08/02/23 Loc: ER.SV Attending Dr: cc: ~ HPI - Altered Mental Status General Chief Complaint: Altered Mental Status Stated Complaint: low gluc Time Seen by Provider: 08/02/23 04:20 Source: EMS Mode of arrival: EMS Limitations: altered mental status History of Present Illness HPI narrative: EMS reports they were called to the patient's residence because of altered mental status and fall. Report from family states that earlier in the evening approximately 9 PM his blood sugar was over 500. States that he administered some insulin and went to sleep. States family then heard him fall in the early hours of this morning and when they went to check on him he was unresponsive so EMS was called. EMS reports whenever they checked a fingerstick it was 50. States that they were not able to start an IV and did not have access to IM glucagon so they gave oral glucose. Upon arrival the patient was received in room #3. His fingerstick for us was 38 and his core temperature was 92.6. Review of Systems ROS: ROS Unobtainable: Yes unobtainable due to mental status PFS PFS Medical History (Updated 08/02/23 @ 05:23 by Christopher Santiago DO) Diabetes Social History Advance Directives: No Advance Directives Information Provided: No Advance Directives on File: No Would like to be referred to Health Education Coordinator for info?: No Smoking Status: Never smoker (Updated 08/02/23 @ 05:23 by Christopher Santiago DO) Diabetes Exam Const Exam limitations: altered mental status General appearance: lethargic Nutritional appearance: obese Orientation/consciousness: lethargic Accompanied by: nobody Other: Patient was initially lethargic and not interactive however after initiation of peripheral IV and dextrose the patient is awake and answers questions and follows commands. HEENT Common normals: normocephalic, atraumatic, external ears normal and Normal external nose present Head and scalp: normocephalic and atraumatic Face and sinus: normal facial exam Nose: Normal external nose present External ear: external ears normal Other: Moist mucous membranes Eye Common normals: Equal, round and reactive pupils present (3 mm reactive bilaterally) and conjunctivae normal Periorbital: periorbital findings normal Eyelid: eyelids normal Conjunctiva: conjunctivae normal Pupil: Equal, round and reactive pupils present (3 mm reactive bilaterally) Neck & C-Spine Common normals: full ROM and supple Other: No obvious signs of trauma. Respiratory Common normals: normal respiratory effort and clear to auscultation bilaterally Auscultation: clear to auscultation bilaterally, no rales, no rhonchi and no wheezes Cardio Common normals: regular rate, regular rhythm, No gallops present (Cardio), No murmurs present (Cardio) and No rub (Cardio) Rate: regular rate Rhythm: regular rhythm GI Common normals: Soft to palpation and non-tender Inspection: No abdominal distension Auscultation: normoactive bowel sounds Palpation: Soft to palpation, No Guarding due to palpation present (GI) and No Rigid due to palpation Extremity Common normals: full ROM, capillary refill normal and no clubbing, cyanosis or edema Other: Patient with prior history of right-sided BKA Neuro Daniel Coma Scale: document GCS findings Dnaiel Coma Scale Eye Opening: No response Daniel coma scale verbal response: No response Daniel Coma Scale Motor Response: Withdraws in response to pain Washburn coma scale total score: 6 Sensorium/orientation: lethargic Other: Patient's initial GCS was 6. After IV dextrose GCS is now 14. Patient is awakealert does answer questions does move extremities x4. Skin Skin Exam: Limited skin exam was performed of exposed skin area Common normals: Yes no rashes or lesions noted, Yes no jaundice, Yes no petechiae and Yes no mottling General skin exam: no rashes or lesions noted Course Reevaluation(s) Reevaluation #1: After D50 patient is now answering some questions he still appears to be somnolent but he is following commands. Patient's core temp is 92.6. We have instituted external active rewarming measures. Time: 04:26 Reevaluation #2: Patient's repeat rectal temp was 93.7. He continues to be awake and alert. Family is now at bedside. Time: 05:46 Consultations Consultation #1: Discussed case with Dr. Jovel. She recommends discussion with ICU and then to call her back if needed. Time: 05:53 Consultation #2: Discussed case with both Zac Arguello, ICU [facility] and Dr. Jovel. They both agreedto accept patient to the floor. Time: 06:09 Vital Signs Vital signs: Vital Signs Temperature 92.6 F L 08/02/23 04:15 Pulse Rate 62 08/02/23 04:15 Respiratory Rate 10 L 08/02/23 04:15 Blood Pressure 214/100 08/02/23 04:15 Pulse Oximetry 97 08/02/23 04:15 Oxygen Delivery Method Room Air 08/02/23 04:15 Temperature 93.7 F L 08/02/23 05:44 Pulse Rate 62 08/02/23 04:36 Respiratory Rate 17 08/02/23 04:36 Blood Pressure 126/73 08/02/23 04:36 Pulse Oximetry 100 08/02/23 04:36 Oxygen Delivery Method Room Air 08/02/23 04:42 Oxygen Flow Rate 99 08/02/23 04:42 Oxygen Delivery/Flow Rate/FiO2 Oxygen Delivery Method Room Air 08/02/23 04:42 Oxygen Delivery Method Room Air 08/02/23 04:15 Oxygen Flow Rate 99 08/02/23 04:42 MDM - Altered Mental Status MDM Narrative Medical decision making narrative: 53-year-old male presenting to the ED from home with complaints of altered mental status. Per EMS it was noted the patient reportedly had an elevated blood sugar over 500 earlier in the night and he gave himself insulin. States that family heard a thump and went to check on him in. He had fallen in the floor but they were unable to wake him. They called EMS and his blood sugar waslow and they brought him to the ED. Patient was hypoglycemic with a fingerstickof 38 and core hypothermia with a rectal temp of 92.6. We instituted external rewarming as well as established an IV with dextrose and the patient is much more awake and alert after this. Further laboratory studies reveal a white count of 14.5 with a hemoglobin of 14 with 87% neutrophils. Patient's ABG did show pH of 7.34 basic metabolic panel showed a creatinine of 2.585 with a glucose of 30 however this was obtained prior to initiation of the dextrose. I have no previous labs to compare to. At this time we are going to recheck the patient's temperature to determine ultimate disposition for admission. Recheck of the temperature showed core of 93.7. Repeat fingerstick blood glucose was 96. I spoke initially with Dr. Jovel then Zac Arguello from the ICU and ultimately upon discussion we have determined the patient be admitted to PCU to Dr. Jovel. Patient continues to be stable at this time. I have initiated D10 for continued hydration and glucose containing fluids. Consultations and care reviewed with: Dr. Jovel, hospitalist medicine; Zac Arguello, ICU [facility] Diagnosis and Disposition: Primary Impression: Hypoglycemia, core hypothermia Secondary Impression: Disposition Plan: Admit to PCU Diagnosis or treatment was significantly limited by social determinants of health including . PDMP reviewed when applicable. Complicating comorbidities include but are not limited to hyperglycemia. External notes/medical records reviewed from none available. Differential diagnoses included but are not limited to altered mental status, hypoglycemia, hypothermia, intracranial injury. EKG/Rhythm strip independently reviewed and interpreted by me (see interpretation). Lab results reviewed by me and significant results are highlighted in the diagnostics section of the [facility] record. Imaging studies reviewed and interpreted by myself and the radiologist. Radiology interpretations are found in the diagnostics section of the [facility] record. Lab Data 08/02/23 04:24 08/02/23 04:24 Labs: Lab Results 08/02/23 08/02/23 08/02/23 Range/Units 04:13 04:15 04:24 WBC 14.5 H (4.5-11.0) 10*3/uL RBC 4.51 (3.90-5.90) 10*6/uL Hgb 14.0 (13.5-17.7) g/dL Hct 40.5 L (41.0-53.0) % MCV 89.8 (81.7-97.1) fL MCH 31.0 (27.2-33.0) pg MCHC 34.6 (31.9-35.1) g/dL RDW Coeff of Emigdio 13.1 (11.6-14.8) % Plt Count 285 (133-425) 10*3/uL MPV 11.4 (8.6-12.2) fL Neut % (Auto) 87.4 H (41.1-75.9) % Lymph % (Auto) 6.3 L (13.4-45.1) % [place] % (Auto) 3.4 L (4.0-12.7) % Eos % (Auto) 2.0 (0.0-5.8) % Baso % (Auto) 0.3 (0.0-1.3) % Neut # (Auto) 12.71 H (1.70-7.00) 10*3/uL Lymph # (Auto) 0.92 (0.80-3.30) 10*3/uL [place] # (Auto) 0.50 (0.30-0.90) 10*3/uL Eos # (Auto) 0.29 (0.00-0.50) 10*3/uL Baso # (Auto) 0.04 (0.00-0.10) 10*3/uL ABG pH 7.34 L (7.35-7.45) ABG pCO2 41 (32-53) mm[Hg] ABG pO2 82.2 (80-110) mm[Hg] ABG HCO3 22 (22-26) mmol/L ABG O2 Saturation 95.1 L (96-97) % ABG O2 Content 17.9 (17-100) mL/dL ABG Base Excess -3.6 mmol/L ABG Methemoglobin 0.3 (0.0-0.3) % ABG Sodium 139 (136-145) mmol/L ABG Potassium 4.5 (3.5-5.1) mmol/L ABG Lactate 0.7 (0.5-1.6) mmol/L Hemoglobin 14.0 (12.2-18.1) g/dL Carboxyhemoglobin 4.1 H (0.1-2.5) % FiO2 21 % PHA Creatinine Clear 32 Sodium 139 (136-145) mmol/L Potassium 4.2 (3.5-5.1) mmol/L Chloride 106 (98-107) mmol/L Carbon Dioxide 26 (20-31) mmol/L Anion Gap 11 (7-17) mmol/L BUN 48 H (9-23) mg/dL Creatinine 2.585 H (0.70-1.30) mg/dL GFR Calculation 28 L (60 - ) mL/min Glucose 30 L* (74-106) mg/dL Whole Bld Glucose 39 L* (70-110) mg/dL Glucometer 55 L (70-110) mg/dL Calcium 9.4 (8.3-10.6) mg/dL Ioniz Calcium pH Adjus 1.19 (1.01-1.33) mmol/L 08/02/23 08/02/23 08/02/23 Range/Units 04:38 05:15 05:54 WBC (4.5-11.0) 10*3/uL RBC (3.90-5.90) 10*6/uL Hgb (13.5-17.7) g/dL Hct (41.0-53.0) % MCV (81.7-97.1) fL MCH (27.2-33.0) pg MCHC (31.9-35.1) g/dL RDW Coeff of Emigdio (11.6-14.8) % Plt Count (133-425) 10*3/uL MPV (8.6-12.2) fL Neut % (Auto) (41.1-75.9) % Lymph % (Auto) (13.4-45.1) % [place] % (Auto) (4.0-12.7) % Eos % (Auto) (0.0-5.8) % Baso % (Auto) (0.0-1.3) % Neut # (Auto) (1.70-7.00) 10*3/uL Lymph # (Auto) (0.80-3.30) 10*3/uL [place] # (Auto) (0.30-0.90) 10*3/uL Eos # (Auto) (0.00-0.50) 10*3/uL Baso # (Auto) (0.00-0.10) 10*3/uL ABG pH (7.35-7.45) ABG pCO2 (32-53) mm[Hg] ABG pO2 (80-110) mm[Hg] ABG HCO3 (22-26) mmol/L ABG O2 Saturation (96-97) % ABG O2 Content (17-100) mL/dL ABG Base Excess mmol/L ABG Methemoglobin (0.0-0.3) % ABG Sodium (136-145) mmol/L ABG Potassium (3.5-5.1) mmol/L ABG Lactate (0.5-1.6) mmol/L Hemoglobin (12.2-18.1) g/dL Carboxyhemoglobin (0.1-2.5) % FiO2 % PHA Creatinine Clear Sodium (136-145) mmol/L Potassium (3.5-5.1) mmol/L Chloride (98-107) mmol/L Carbon Dioxide (20-31) mmol/L Anion Gap (7-17) mmol/L BUN (9-23) mg/dL Creatinine (0.70-1.30) mg/dL GFR Calculation (60 - ) mL/min Glucose (74-106) mg/dL Whole Bld Glucose (70-110) mg/dL Glucometer 156 H 111 H 96 (70-110) mg/dL Calcium (8.3-10.6) mg/dL Ioniz Calcium pH Adjus (1.01-1.33) mmol/L ABG Data ABG results: 08/02/23 04:15 ABG pH 7.34 L ABG pCO2 41 ABG pO2 82.2 ABG HCO3 22 ABG O2 Saturation 95.1 L ABG O2 Content 17.9 ABG Base Excess -3.6 ABG Methemoglobin 0.3 Radiologist Impression ITS Impressions Head CT 08/02/23 05:14 IMPRESSION: 1[address] No CT evidence of acute intracranial hemorrhage, midline shift or mass- effect. 2. Hypodense changes within right and left side of the cerebellum. Concerning for underlying infarct. CT appearance suggest subacute-chronic age. Provider note Note: The patient will be hospitalized. The accepting provider was . A review of the patient's presentation and pertinent labs/radiographs were reviewed with the admitting provider. The plan was reviewed with the patient and family if available, and any questions were answered as best as able. Critical Care Time Critical Care Time Critical Care Time: Yes Total Critical Care Time (mins): 30 Attestation: The critical care time annotated includes time spent at bedside, discussions with medical staff, interpretations of laboratory and or imaging studies, review of records when available, and documentation of the encounter. This excludes all separately billable procedures. Sepsis Focused Exam Vital signs: Vital Signs Temp Pulse Resp BP Pulse Ox O2 Del Method O2 Flow Rate 08/02/23 05:44 93.7 F L 08/02/23 04:36 62 17 126/73 100 08/02/23 04:42 92.6 F L 08/02/23 04:42 Room Air 99 08/02/23 04:20 Room Air 08/02/23 04:15 92.6 F L 62 10 L 214/100 97 Room Air Discharge Plan Discharge Clinical Impression: Altered mental status, Hypoglycemia, Hypothermia Patient Disposition: Admitted As Inpatient Condition at Discharge: Good Referrals: None,Doctor, DO [Primary Care Provider] - Stand Alone Forms: Portal Instructions Interventions: ED Altered Mental Status Assessment Last Done: 08/02/23 04:42 Reported Code Status Last Done: 08/02/23 04:41 ED Immunizations Last Done: 08/02/23 04:41 Travel Information (v2) Last Done: 08/02/23 04:41 Vital Signs - Monitor Last Done: 08/02/23 05:44 ED Nurse Note Last Done: 08/02/23 05:21 Sepsis Bundle Checklist Last Done: 08/02/23 06:04 Discharge Disposition Location: Admit to PCU Documented By: Christopher Santiago D.O. 08/02/23 0425 Signed By: <Electronically signed by Christopher Santiago D.O.> 08/02/23 0627 [facility] Work Phone: [phone] NoteRight Eye Quality was good. Scan locations included subfoveal. Progression has improved. Findings include abnormal foveal contour. Left Eye Quality was poor.[id number] History of Present illness Narrative* Demetri Frank MD - 07/24/2023 3:44 PM EDT Longstanding PDR OU, DME, mac ischemia OU Sp PRP OU, Repeated injections - last 10/2022, 06/2023 Did not notice any real improvement with injections PRP fill in OU 12/2022 No real change since last visit A/P 1. 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 Amaurosis fugax OU - Reported ~08/2020 with transient vision loss episodes but now resolved as of 10/2020 - 12/2019 MRA neck no ICA stenosis - GCA symptoms POWELL, jaw mikaela, F/C negative - rec go to ED if symptoms recur Return 6 weeks Dilate OU OCT mac OU documented in this [id number] NoteRight Eye Quality was good. Scan locations included subfoveal. Progression has worsened. Findings include abnormal foveal contour, intraretinal fluid. Left Eye Quality was borderline. Scan locations included subfoveal. Progression has worsened. Findings include abnormal foveal contour, intraretinal fluid. [id number] History of Present illness Narrative* Demetri Frank MD - 06/26/2023 4:27 PM EDT Longstanding PDR OU, DME, mac ischemia OU Sp PRP OU, Repeated injections - last 10/2022 Did not notice any real improvement with injections [place]U [id number] Vision worse per pt A/P 1. 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 Amaurosis fugax OU - Reported ~08/2020 with transient vision loss episodes but now resolved as of 10/2020 - 12/2019 MRA neck no ICA stenosis - GCA symptoms POWELL, jaw mikaela, F/C negative - rec go to ED if symptoms recur Return 2 months Dilate OU OCT mac OU documented in this [id number] Evaluation note* Encounter Date Diagnosis Assessment Notes Treatment Notes Treatment Clinical Notes May, Phantom pain after amputation of lower extremity (ICD-10 - G54.6) May, Right below-knee amputee (ICD-10 - Z89.511) RX written for new gel liners Discussed diligent skin monitoring for breakdown given history of revision due to postop complications at operative site. Needs emergent attention should redness/ulcer develop. Extensive discussion regarding starting Flexeril. Would like to trial. Advised once daily dosing in evening while monitoring for sedation/side effects. He's agreeable. Can increase to two-three times daily if helpful. Stop if sedated, or if feel ill with medication. May, Muscle spasm (ICD-10 - M62.838) [place] Other 07-06-2023 Progress [facility] April 18, 2023 10:57am Note Date/Time April 18, 2023 10:57 am [facility] [address] [place] [address] Nephrology Progress Note Signed Patient: Chandler Minor MR#: [id number] : 1970 Acct:[id number] Age/Sex: 52 / M Adm Date: 3 Loc: 3T Room: [address] [place] [address] Type: ADM IN Attending Dr: Kameron Dos Santos DO Copies to: ~ Date of Service: 04/18/2023 Subjective Subjective Narrative: Mr. Minor is a 52-year-old white gentleman with history of DM 2, HTN, COPD and CKD stage III s/p right BKA. Patient was transferred from [facility] forelevated creatinine above the baseline 3.26 mg/dL compared to 1.7 to 1.8 mg/dL. Apparently the patient had fluid overload and he was really taking bumetanide 1 mg twice a day. He was seen by Dr. Prado in the office for consultation last month and metolazone 2.5 mg on MWF schedule was added. Patient lost close to 20pounds over the last 2 weeks. He presented to [place] with generalized weakness. Creatinine was found to be 3.26 mg/dL as stated above. Patient was given 1 L of IV fluid and was transferred to [facility] for further evaluation. Patient denied any chest pain or shortness of breath. Edema has much improved. Blood pressure surprisingly was still elevated. EKG showed no evidence of ST-T wave changes. Patient stated that he had a cath that showed mild blockage however no intervention was needed. His troponin was normal and chest x-ray showed no evidence of congestive heart failure. Interval history: Renal function did improve with holding metolazone and IV fluid. IV fluid was stopped because of elevated blood pressure and to avoid fluid overload. Patienthas good urine output. Renal function continues to improve with creatinine down to 2.57 mg/dL. Patientis back on bumetanide 1 mg twice a day because of recurrent CHF. Blood pressure did improve when currently running in the high range 140s to 160 systolic. He has trace edema. Patient feels comfortable with no shortness of breath. No nausea or vomiting. No diarrhea or constipations. No urinary symptoms. Exam Physical Exam Vital Signs: Temp Pulse Resp BP Pulse Ox O2 Del Method O2 Flow Rate 36.4 C 70 16 161/90 H 99 Room Air 2 04/18/23 08:00 04/18/23 08:00 04/18/23 08:00 04/18/23 08:00 04/18/23 08:00 04/18/23 08:00 04/18/23 04:00 Narrative: Constitutional: Appears comfortable and not in distress HEENT: No pallor or Jaundice Cardiovascular: RRR, normal S1-S2, no gallop or rub, No JVD Respiratory: Good bilateral air entry no wheezing or crackles Gastrointestinal: Soft, non tender, positive bowel sounds Extremities: Right BKA, trace edema. Trace edema left lower extremity Skin: No rashes or bruises Musculoskeletal: No joints swellings or inflammation Neurology: Awake, alert, oriented ?3, No focal motor or sensory deficits Psych: Normal mood and affect Objective Intake and Output I&O: Intake & Output 04/15/23 04/16/23 04/17/23 04/18/23 23:59 23:59 23:59 23:59 Intake Total 1700 / 1700 1290 / 1290 240 / 240 Output Total 1200 / 1200 950 / 950 800 / 800 Balance 500 / 500 340 / 340 -560 / -560 Weight 103.7 kg 102.9 kg 102.6 kg 104.6 kg Meds and Allergies Meds: Active Medications Acetaminophen (Acetaminophen 325 Mg Tablet) 650 mg PO Q6HR PRN PRN Reason: Pain Scale 1 - 3 or fever Stop: 04/15/24 04:51 Last Admin: 04/17/23 04:12 Dose: 650 mg Amlodipine Besylate (Amlodipine 10 Mg Tablet) 10 mg PO DAILY [facility] Stop: 04/15/24 13:39 Last Admin: 04/18/23 09:28 Dose: 10 mg Atorvastatin Calcium (Atorvastatin 40 Mg Tablet) 40 mg PO QPM [facility]ERLINE Stop: 04/15/24 20:59 Last Admin: 04/17/23 20:42 Dose: 40 mg Bumetanide (Bumetanide 1 Mg Tablet) 1 mg PO BID@0800,1600 [facility] Stop: 04/16/24 15:59 Last Admin: 04/18/23 09:28 Dose: 1 mg Dextrose (Dextrose 50% In Water 25 Gm/50 Ml Syringe) 0 gm IV-PUSH PRN PRN PRN Reason: Hypoglycemia Stop: 04/15/24 05:42 Enoxaparin Sodium (Enoxaparin 40 Mg/0.4 Ml Syringe) 40 mg SUBCUT DAILY@10 [facility] Stop: 04/15/24 09:59 Last Admin: 04/18/23 09:35 Dose: 40 mg Glucose (Dextrose 40% Gel 15 Gm Tube) 0 gm PO PRN PRN PRN Reason: Hypoglycemia Stop: 04/15/24 05:42 Hydralazine HCl (Hydralazine 20 Mg/Ml Vial) 20 mg IV-PUSH Q1H PRN PRN Reason: SBP > 170 Stop: 04/15/24 13:38 Last Admin: 04/16/23 16:15 Dose: 20 mg Insulin Aspart (Insulin Aspart 300 Units/3 Ml Insuln.Pen) 0 units SUBCUT TID.WM.HS [facility]; Protocol Stop: 04/15/24 07:59 Last Admin: 04/18/23 09:29 Dose: Not Given Insulin Glargine (Insulin Glargine 300 Units/3 Ml Insuln.Pen) 42 units SUBCUT BID [facility] Stop: 04/15/24 08:59 Last Admin: 04/18/23 09:29 Dose: 42 units Levothyroxine Sodium (Levothyroxine 25 Mcg Tablet) 25 mcg PO DAILY.629 [facility] Stop: 04/15/24 06:29 Last Admin: 04/18/23 05:34 Dose: 25 mcg Melatonin (Melatonin 5 Mg Tablet) 5 mg PO QHS PRN PRN Reason: Insomnia Stop: 04/15/24 04:51 Last Admin: 04/16/23 21:40 Dose: 5 mg Nicotine (Nicotine Patch 21 Mg/24hr 1 Each Patch.Td24) 1 each TRANSDERML DAILY PRN PRN Reason: Nicotine Cravings Stop: 04/15/24 05:28 Nystatin (Nystatin 100,000 Unit/Gram Powder 15 Gm Bottle) 1 applic TOPICAL BID [facility] Last Admin: 04/18/23 09:29 Dose: 1 applic Pantoprazole Sodium (Pantoprazole 40 Mg Tablet.Dr) 40 mg PO DAILY [facility] Stop: 04/15/24 08:59 Last Admin: 04/18/23 09:28 Dose: 40 mg Potassium Chloride (Potassium Chloride Er 20 Meq Tab.Er.Prt) 40 meq PO DAILY PRN PRN Reason: Hypokalemia Stop: 04/15/24 13:39 Tamsulosin HCl (Tamsulosin 0.4 Mg Cap.Er.24h) 0.4 mg PO DAILY [facility] Stop: 04/16/24 14:04 Last Admin: 04/18/23 09:28 Dose: 0.4 mg Trazodone HCl (Trazodone 50 Mg Tablet) [address] [facility] Stop: 04/16/24 21:59 Last Admin: 04/17/23 21:52 Dose: Not Given Allergies promethazine [From Phenergan] Allergy (Verified 04/21/22 21:08) Unknown Reaction Results Labs 04/18/23 05:52 04/18/23 07:34 Labs: 04/18/23 05:52 BUN 56 H Creatinine 2.57 H Radiology Impressions Impressions - last 24 hours: Any impression(s) listed above is documentation that was entered by the reading physician into a diagnostic report(s) for Chandler Minor. I have reviewed the report(s) and am incorporating any findings in the treatment plan of this patient where applicable. A&P - Nephrology Assessment/Plan (1) FRANK (acute kidney injury): Plan: Patient presented with FRANK after he lost significant weight with metolazone. Renal function is improving however still not back to baseline. (2) CKD (chronic kidney disease) stage 3, GFR 30-59 ml/min: Plan: Patient has CKD stage III with significant proteinuria related to DM 2. Baseline creatinine has been running between 1.7 to 1.8 mg/dL over the last few years. Urine analysis showed 300 mg/dL proteinuria. (3) Dehydration: Plan: Patient was admitted with overdiuresis and FRANK that improved with hydration. (4) Hypertension: Plan: Blood pressure is elevated 160s systolic. He still off losartan and bumetanide. Patient on amlodipine and hydralazine as needed. (5) Diabetes mellitus: Plan: Patient has longstanding history of DM2 with multiple complications and peripheral vascular disease. Diabetes seems to be out of control since he has glucosuria. I do not see SGLT2 receptor dale on his medication list. Hemoglobin A1c has been running in the 15% in 202 and 2021. We do not have recent hemoglobin A1c. Patient could have progression of underlying diabetic kidney disease as well Plan * Continue bumetanide 1 mg p.o. twice a day. Patient does not need metolazone at this point. Losartan still on hold for FRANK. * Will escalate blood pressure medications, will restart isosorbide mononitrate ER 60 mg daily. If systolic blood pressure continues to be elevated more than 150s, will try losartan at lower dose 25 mg daily. This can be done as outpatient as well and the patient does not need to stay in the hospital for that. * Continue amlodipine 10 mg daily * Spot urine for protein creatinine showed proteinuria 4.7 g/g of creatinine most likely diabetic nephropathy. Hemoglobin A1c was checked yesterday and still elevated 12.6% explained progression of CKD. Considering his younger age and significant proteinuria, will screen for light chain nephropathy. That was ordered by Dr. Prado as outpatient however patient does not have a chance to do it. We will order before discharge and he can follow-up with Dr. Prado as outpatient. * Continue monitoring blood pressure and renal function to adjust medications. Since patient has markedly improved. He has no nausea or vomiting and able to eat and drink, medications can be adjusted as outpatient. Patient can be discharged at any time from renal point view to follow-up with Dr. Prado in the office. Documented By: Nkechi Kc MD 04/18/23 105 Signed By: <Electronically signed by MD Nkechi Kc> 04/18/23 1054 [facility] Work Phone: [phone]) 336-132407-05-2023 Progress note Author Kameron Dos Santos [facility] April 17, 2023 4:48pm Note Date/Time April 17, 2023 4:42p m [facility] [address] [place] [address] Hospitalist Progress Note Signed Patient: Chandler Minor MR#: [id number] : 1970 Acct:[id number] Age/Sex: 52 / M Adm Date: 3 Loc: Room: [address] [place] [address] Type: ADM IN Attending Dr: Kameron Dos Santos DO Copies to: ~ Date of Service: 04/17/2023 Subjective Subjective Narrative: Patient was seen and examined the bedside this afternoon. No acute events overnight. He was able to urinate this morning without requiring catheterization. Notes a history of BPH. Physical Examination: GENERAL APPEARANCE: Alert, up in bed AAOx3 CARDIAC: Normal S1 and S2. No S3, S4 or murmurs. LUNGS: Clear to auscultation bilaterally. no wheeze/rhonchi/rales ABDOMEN: Positive bowel sounds. Soft, nontender. No guarding or signs of an acute abdomen MUSCULOSKELETAL: No joint erythema or tenderness. Right BKA noted EXTREMITIES: No clubbing, cyanosis or edema NEUROLOGICAL: No focal deficits SKIN: Skin normal color, texture and turgor with no lesions or eruptions. PSYCHIATRIC: Appropriate mood and affect Assessment and plan: 1. Acute kidney injury on chronic kidney disease stage III Patient is reporting some swelling and at this time IV fluids have been discontinued. 1 mg Bumex twice daily has been reinitiated by nephrology. Appreciate recommendations. 2. Hypertension continue home amlodipine. Diuretics being brought back on gradually. 3. Insulin-dependent diabetes mellitus Continue home basal bolus regimen. 4. Hypothyroidism Continue home levothyroxine Exam Physical Exam Vital Signs: Temp Pulse Resp BP Pulse Ox O2 Del Method O2 Flow Rate 97.5 F L 78 18 150/78 H 97 Room Air 2 04/17/23 04:00 04/17/23 11:57 04/17/23 11:57 04/17/23 11:57 04/17/23 11:57 04/17/23 11:57 04/17/23 04:00 Objective Lab Results 04/17/23 06:03 04/17/23 06:03 Meds Allergies and Active Meds Allergies promethazine [From Phenergan] Allergy (Verified 04/21/22 21:08) Unknown Reaction Active Meds: Active Medications Generic Name Dose Route Start Last Admin Trade Name Freq PRN Reason Stop Dose Admin Acetaminophen 650 mg 04/16/23 04:52 04/17/23 04:12 Acetaminophen 325 Mg Tablet PO 04/15/24 04:51 650 mg Q6HR PRN Administration Pain Scale 1 - 3 or fever Amlodipine Besylate 10 mg 04/16/23 13:40 04/17/23 09:13 Amlodipine 10 Mg Tablet PO 04/15/24 13:39 10 mg DAILY [facility] Administration Atorvastatin Calcium 40 mg 04/16/23 21:00 04/16/23 21:34 Atorvastatin 40 Mg Tablet PO 04/15/24 20:59 40 mg QPM [facility]ERLINE Administration Bumetanide 1 mg 04/17/23 16:00 04/17/23 15:39 Bumetanide 1 Mg Tablet PO 04/16/24 15:59 1 mg BID@0800,1600 [facility]ER[facility] Administration Dextrose 0 gm 04/16/23 05:43 Dextrose 50% In Water 25 Gm/50 Ml Syringe IV-PUSH 04/15/24 05:42 PRN PRN Hypoglycemia Enoxaparin Sodium 40 mg 04/16/23 10:00 04/17/23 09:14 Enoxaparin 40 Mg/0.4 Ml Syringe SUBCUT 04/15/24 09:59 40 mg DAILY@10 [facility]ER[facility] Administration Glucose 0 gm 04/16/23 05:43 Dextrose 40% Gel 15 Gm Tube PO 04/15/24 05:42 PRN PRN Hypoglycemia Hydralazine HCl 20 mg 04/16/23 13:39 04/16/23 16:15 Hydralazine 20 Mg/Ml Vial IV-PUSH 04/15/24 13:38 20 mg Q1H PRN Administration SBP > 170 Insulin Aspart 0 units 04/16/23 08:00 04/17/23 11:55 Insulin Aspart 300 Units/3 Ml Insuln.Pen SUBCUT 04/15/24 07:59 2 units TID.WM.HS GUERLINE Administration Protocol Insulin Glargine 42 units 04/16/23 09:00 04/17/23 09:14 Insulin Glargine 300 Units/3 Ml Insuln.Pen SUBCUT 04/15/24 08:59 Not Given BID [facility]ER[facility] Levothyroxine Sodium 25 mcg 04/16/23 06:30 04/17/23 06:18 Levothyroxine 25 Mcg Tablet PO 04/15/24 06:29 25 mcg DAILY.0630 [facility]ER[facility] Administration Melatonin 5 mg 04/16/23 04:52 04/16/23 21:40 Melatonin 5 Mg Tablet PO 04/15/24 04:51 5 mg QHS PRN Administration Insomnia Nicotine 1 each 04/16/23 05:29 Nicotine Patch 21 Mg/24hr 1 Each Patch.Td24 TRANSDERML 04/15/24 05:28 DAILY PRN Nicotine Cravings Nystatin 1 applic 04/16/23 15:00 04/17/23 09:13 Nystatin 100,000 Unit/Gram Powder 15 Gm Bottle TOPICAL 1 applic BID [facility]ER[facility] Administration Pantoprazole Sodium 40 mg 04/16/23 09:00 04/17/23 09:13 Pantoprazole 40 Mg Tablet.Dr PO 04/15/24 08:59 40 mg DAILY [facility]ER[facility] Administration Potassium Chloride 40 meq 04/16/23 13:40 Potassium Chloride Er 20 Meq Tab.Er.Prt PO 04/15/24 13:39 DAILY PRN Hypokalemia Tamsulosin HCl 0.4 mg 04/17/23 14:05 04/17/23 15:39 Tamsulosin 0.4 Mg Cap.Er.24h PO 04/16/24 14:04 0.4 mg DAILY [facility]ER[facility] Administration Documented By: Kameron Dos Santos DO 04/17/23 16 39 Signed By: <Electronically signed by Kameron Dos Santos DO> 04/17/23 1648 [facility] Work Phone: [phone]) 579-402807-05-2023 Consult note Author Nkechi Kc [facility] April 17, 2023 11:20am Note Date/Time April 17, 2023 11:04 am [facility] [address] [place] [address] Nephrology Consult Note Signed Patient: Chandler Minor MR#: [id number] : 1970 Acct:[id number] Age/Sex: 52 / M Adm Date: 3 Loc: Room: [address] [place] [address] Type: ADM IN Attending Dr: Kameron Dos Santos DO Copies to: DO Nkechi Zuniga MD Michael R. Frings, DO~ Providers Consult Date: 04/17/23 Requesting Provider: Kameron Dos Santos DO Primary Care Provider: Fadi Tenorio DO HPI Reason for Consult: FRANK on top of CKD 3 History of Present Illness: Mr. Minor is a 52-year-old white gentleman with history of DM 2, HTN, COPD and CKD stage III s/p right BKA. Patient was transferred from [facility] forelevated creatinine above the baseline 3.26 mg/dL compared to 1.7 to 1.8 mg/dL. Apparently the patient had fluid overload and he was really taking bumetanide 1 mg twice a day. He was seen by Dr. Prado in the office for consultation last month and metolazone 2.5 mg on MWF schedule was added. Patient lost close to 20pounds over the last 2 weeks. He presented to [place] with generalized weakness. Creatinine was found to be 3.26 mg/dL as stated above. Patient was given 1 L of IV fluid and was transferred to [facility] for further evaluation. Patient denied any chest pain or shortness of breath. Edema has much improved. Blood pressure surprisingly was still elevated. EKG showed no evidence of ST-T wave changes. Patient stated that he had a cath that showed mild blockage however no intervention was needed. His troponin was normal and chest x-ray showed no evidence of congestive heart failure. Overnight patient was given IV fluid lactated Ringer at 125 cc/h. Initially he has difficulty urinating however after tamsulosin, he had good urine output and creatinine today is down to 2.66 however still higher than baseline creatinine close to 1.7 mg/dL. Losartan, bumetanide and metolazone are on hold. Patient feels comfortable with no shortness of breath. No nausea or vomiting. No diarrhea or constipations. No urinary symptoms. Review of Systems Review of Systems All other systems reviewed & are negative unless noted below or in HPI Constitutional Constitutional: Reports system reviewed and no additional complaints, except as documented Cardiovascular Cardiovascular: Reports system reviewed and no additional complaints, except as documented Respiratory Respiratory: Reports system reviewed and no additional complaints, except as documented Gastrointestinal Gastrointestinal: Reports system reviewed and no additional complaints, except as documented Genitourinary Genitourinary: Reports system reviewed and no additional complaints, except as documented Neurologic Neurologic: Reports system reviewed and no additional complaints, except as documented Hematologic/Lymphatic Hematologic/Lymphatic: Reports system reviewed and no additional complaints, except as documented PMFSH Vaccinated for COVID-19?: No Medical History (Updated 04/16/23 @ 05:26 by Albert Woods DO) Amputee, below knee RIGHT Anxiety and depression Apnea Asthma Autonomic dysfunction BPH (benign prostatic hyperplasia) CKD (chronic kidney disease) stage 3, GFR 30-59 ml/min CVA (cerebral vascular accident) Diabetes mellitus, type 2 Diabetic neuropathy Generalized headaches Hypertension Hypertensive emergency Hypothyroid PRAVEENA on CPAP PAD (peripheral artery disease) Parkinson disease Pulmonary sarcoidosis Right hemiplegia Seizure disorder Seizures Tobacco abuse Surgical History S/P percutaneous transluminal angioplasty ([employer]) Family History Other Diabetes mellitus, type 2 Hypertension Stroke Social History Smoking Status: Current every day smoker Tobacco Type: cigarettes Substance Use Type: None Meds Medications & Allergies Allergies promethazine [From Phenergan] Allergy (Verified 04/21/22 21:08) Unknown Reaction Home Medications carvedilol 12.5 mg tablet 12.5 mg PO BID.WITH.MEALS 08/14/21 [Rx Confirmed 04/21/22] levothyroxine 25 mcg tablet 25 mcg PO DAILY.0630 #30 tabs 08/14/21 [Rx Confirmed 04/15/23] omeprazole 20 mg capsule,delayed release 20 mg PO DAILY #30 caps 08/14/21 [Rx Confirmed 04/15/23] melatonin 10 mg tablet 20 mg PO HS PRN Sleep 01/10/22 [History Confirmed 04/15/23] nicotine 21 mg/24 hr daily transdermal patch 1 patch transdermal DAILY PRN Nicotine Cravings 30 days #28 ea 01/12/22 [Rx Confirmed 04/15/23] insulin detemir U-100 100 unit/mL (3 mL) subcutaneous pen (Levemir FlexTouch U- 100 Insulin) 42 unit subcut BID 04/21/22 [History Confirmed 04/21/22] losartan 25 mg tablet 50 mg PO QAM 04/21/22 [History Confirmed 04/15/23] albuterol sulfate 90 mcg/actuation aerosol inhaler 2 puff inhalation Q4H PRN Shortness Of Breath 04/15/23 [History] amlodipine 10 mg tablet 10 mg PO DAILY 04/15/23 [History Confirmed 04/15/23] atorvastatin 80 mg tablet 40 mg PO QPM 04/15/23 [History Confirmed 04/15/23] bumetanide 1 mg tablet 1 mg PO DAILY 04/15/23 [History] insulin glargine 100 unit/mL (3 mL) subcutaneous pen (Lantus Solostar U-100 Insulin) 42 unit subcut BID 04/15/23 [History Confirmed 04/15/23] metolazone 2.5 mg tablet 2.5 mg PO QMWF 04/15/23 [History Confirmed 04/15/23] trazodone 50 mg tablet 50 mg PO HS PRN Insomnia 04/16/23 [History Confirmed 04/16/23] trazodone 50 mg tablet mg 04/16/23 [History] Active Medications: Active Medications Acetaminophen (Acetaminophen 325 Mg Tablet) 650 mg PO Q6HR PRN PRN Reason: Pain Scale 1 - 3 or fever Stop: 04/15/24 04:51 Last Admin: 04/17/23 04:12 Dose: 650 mg Amlodipine Besylate (Amlodipine 10 Mg Tablet) 10 mg PO DAILY [facility] Stop: 04/15/24 13:39 Last Admin: 04/17/23 09:13 Dose: 10 mg Atorvastatin Calcium (Atorvastatin 40 Mg Tablet) 40 mg PO QPM [facility] Stop: 04/15/24 20:59 Last Admin: 04/16/23 21:34 Dose: 40 mg Dextrose (Dextrose 50% In Water 25 Gm/50 Ml Syringe) 0 gm IV-PUSH PRN PRN PRN Reason: Hypoglycemia Stop: 04/15/24 05:42 Enoxaparin Sodium (Enoxaparin 40 Mg/0.4 Ml Syringe) 40 mg SUBCUT DAILY@10 [facility] Stop: 04/15/24 09:59 Last Admin: 04/17/23 09:14 Dose: 40 mg Glucose (Dextrose 40% Gel 15 Gm Tube) 0 gm PO PRN PRN PRN Reason: Hypoglycemia Stop: 04/15/24 05:42 Hydralazine HCl (Hydralazine 20 Mg/Ml Vial) 20 mg IV-PUSH Q1H PRN PRN Reason: SBP > 170 Stop: 04/15/24 13:38 Last Admin: 04/16/23 16:15 Dose: 20 mg Insulin Aspart (Insulin Aspart 300 Units/3 Ml Insuln.Pen) 0 units SUBCUT TID..[facility]; Protocol Stop: 04/15/24 07:59 Last Admin: 04/17/23 07:51 Dose: Not Given Insulin Glargine (Insulin Glargine 300 Units/3 Ml Insuln.Pen) 42 units SUBCUT BID [facility] Stop: 04/15/24 08:59 Last Admin: 04/17/23 09:14 Dose: Not Given Levothyroxine Sodium (Levothyroxine 25 Mcg Tablet) 25 mcg PO DAILY.0630 [facility] Stop: 04/15/24 06:29 Last Admin: 04/17/23 06:18 Dose: 25 mcg Melatonin (Melatonin 5 Mg Tablet) 5 mg PO QHS PRN PRN Reason: Insomnia Stop: 04/15/24 04:51 Last Admin: 04/16/23 21:40 Dose: 5 mg Nicotine (Nicotine Patch 21 Mg/24hr 1 Each Patch.Td24) 1 each TRANSDERML DAILY PRN PRN Reason: Nicotine Cravings Stop: 04/15/24 05:28 Nystatin (Nystatin 100,000 Unit/Gram Powder 15 Gm Bottle) 1 applic TOPICAL BID [facility] Last Admin: 04/17/23 09:13 Dose: 1 applic Pantoprazole Sodium (Pantoprazole 40 Mg Tablet.Dr) 40 mg PO DAILY [facility] Stop: 04/15/24 08:59 Last Admin: 04/17/23 09:13 Dose: 40 mg Potassium Chloride (Potassium Chloride Er 20 Meq Tab.Er.Prt) 40 meq PO DAILY PRN PRN Reason: Hypokalemia Stop: 04/15/24 13:39 Exam Physical Exam Vital Signs: Temp Pulse Resp BP Pulse Ox O2 Del Method O2 Flow Rate 36.4 C L 76 18 163/98 H 98 Room Air 2 04/17/23 04:00 04/17/23 08:00 04/17/23 08:00 04/17/23 08:00 04/17/23 08:00 04/17/23 08:00 04/17/23 04:00 Narrative: Constitutional: Appears comfortable and not in distress HEENT: No pallor or Jaundice Cardiovascular: RRR, normal S1-S2, no gallop or rub, No JVD Respiratory: Good bilateral air entry no wheezing or crackles Gastrointestinal: Soft, non tender, positive bowel sounds Extremities: Right BKA, trace edema. Skin: No rashes or bruises Musculoskeletal: No joints swellings or inflammation Neurology: Awake, alert, oriented ?3, No focal motor or sensory deficits Psych: Normal mood and affect Results Labs 04/17/23 06:03 04/17/23 06:03 Labs: 04/16/23 04/16/23 04/17/23 17:49 21:45 06:03 BUN 54 H 57 H Creatinine 2.80 H 2.66 H Urine Color Yellow Urine Appearance Clear Urine pH 6.5 Ur Specific Lawrence 1.017 Urine Protein 300 H Urine Glucose (UA) >=1000 H Urine Ketones Negative Urine Occult Blood Negative Urine Nitrite Negative Ur Leukocyte Esterase Negative Urine RBC None seen Urine WBC None seen Urine Bacteria None seen Radiology Impressions Impressions - last 24 hours: Impressions Abdomen/Pelvis CT 04/16/23 17:33 IMPRESSION: Marked urinary bladder distention. No nephrolithiasis or hydronephrosis. Impression dictated by: Jesu Reese M.D.04/16/2023 6:22 PM Dictation Location: [place] [address] Any impression(s) listed above is documentation that was entered by the reading physician into a diagnostic report(s) for Chandler Minor. I have reviewed the report(s) and am incorporating any findings in the treatment plan of this patient where applicable. A&P - Nephrology Assessment/Plan (1) FRANK (acute kidney injury): Plan: Patient presented with FRANK after he lost significant weight with metolazone. Renal function is improving however still not back to baseline. (2) CKD (chronic kidney disease) stage 3, GFR 30-59 ml/min: Plan: Patient has CKD stage III with significant proteinuria related to DM 2. Baseline creatinine has been running between 1.7 to 1.8 mg/dL over the last few years. Urine analysis showed 300 mg/dL proteinuria. (3) Dehydration: Plan: Patient was admitted with overdiuresis and FRANK that improved with hydration. (4) Hypertension: Plan: Blood pressure is elevated 160s systolic. He still off losartan and bumetanide. Patient on amlodipine and hydralazine as needed. (5) Diabetes mellitus: Plan: Patient has longstanding history of DM2 with multiple complications and peripheral vascular disease. Diabetes seems to be out of control since he has glucosuria. I do not see SGLT2 receptor dale on his medication list. Hemoglobin A1c has been running in the 15% in 2020 and 2021. We do not have recent hemoglobin A1c. Patient could have progression of underlying diabetic kidney disease as well Plan * IV fluid was stopped to avoid recurrent volume overload, I agree. * Restart bumetanide 1 mg twice a day. Keep holding metolazone and losartan. * Continue amlodipine and monitor blood pressure. Will need to restart losartan even at lower dose since the patient has diabetic nephropathy with proteinuria. * Check spot urine for protein creatinine to rule out nephrotic syndrome. * Check hemoglobin A1c and stressed the importance of diabetes control if still elevated. Patient may need to be referred to diabetes clinic for endocrinology if he does not have 1. * Continue monitoring blood pressure and renal function to adjust medications. Since patient has markedly improved. He has no nausea or vomiting and able to eat and drink, medications can be adjusted as outpatient. Patient can be discharged at any time from renal point view to follow-up with Dr. Prado in the office. As stated above, we will keep metolazone on hold and Dr. Prado will restart losartan and SGL2 blockers as appropriate. I appreciate this consultation we will be happy to follow the patient with you during his hospital stay. This document was dictated utilizing computerized voice recognition technology. Errors in grammar, spelling, and or syntax may be noted. The creator of this document does not proofread for this. Documented By: Nkechi Kc MD 04/17/23 1102 Signed By: <Electronically signed by MD Nkechi Kc> 04/17/23 8[address] [facility] Work Phone: 1(672) 780-147407-04-2023 Progress note Author Kameron Dos Santos [facility] April 16, 2023 5:33pm Note Date/Time April 16, 2023 5:27p m [facility] [address] [place] [address] Progress Note Signed Patient: Chandler Minor MR#: [id number] : 1970 Acct:[id number] Age/Sex: 52 / M Adm Date: 3 Loc: Room: [address] [place] [address] Type: ADM IN Attending Dr: Kameron Dos Santos DO Copies to: ~ Date of Service: 04/16/2023 Progress Narrative Note PROGRESS NOTE Progress Note: I personally saw and examined patient at the bedside earlier today. He appears to be hemodynamically stable at the moment breathing comfortably on room air. He is fairly hypertensive on IV fluids. Subsequently I have placed an order forIV hydralazine and instructed nursing to resume IV fluids given his ongoing acute kidney injury. Presumably the patient has intravascularly dry as it is reported that he increased his diuretic recently. [facility]. It is noted that his high-sensitivity troponin was checked twice and within normal limits. Brain atretic peptide level is mildly elevated at 1992 (upper limit of normal for their scale is 900). Patient seems relatively asymptomatic at the moment but apparently had some chest discomfort and weakness yesterday. Continue telemetry monitoring. It is reported to me this afternoon that the patient has made no urine at all throughout the day and his bladder scan revealed an empty bladder. This is in the setting of aggressive IV fluid resuscitation. His BUN/creatinine ratio does not suggest postrenal obstruction. He has no severe abdominal pain presently. We will obtain a CT scan to evaluate for hydronephrosis or postrenal obstruction. Check urinalysis, urine electrolytes and BMP. I have consulted nephrology today on a routine basis. Monitor for any dyspnea or hypoxia. Documented By: Kameron Dos Santos DO 04/16/23 17 22 Signed By: <Electronically signed by Kameron Dos Santos DO> 04/16/23 17[address] [facility] Work Phone: [phone]) 945-263707-04-2023 History and physical note Author Albert Woods [facility] April 16, 2023 5:29am Note Date/Time April 16, 2023 5:29a m [facility] [address] [place] [address] Hospitalist H&P Signed Patient: Chandler Minor MR#: [id number] : 1970 Acct:[id number] Age/Sex: 52 / M Adm Date: 3 Loc: Room: [address] [place] [address] Type: ADM IN Attending Dr: Kameron Dos Santos DO Copies to: DO Kameron Zuniga DO Shawn J Warner, DO~ HPI DATE OF EXAMINATION: 04/16/23 CHIEF COMPLAINT: Dehydration HISTORY OF PRESENT ILLNESS: Mr Minor is a 52 year old male with a past medical history of COPD, diabetes, hypertension, hypothyroidism, CKD stage III, status post right BKA who presents hospital today as a transfer from [facility] for FRANK. He states he was recently in a fluid overload state and he was already taking Bumex 1 mg twice daily and his manager scientific recently put him on metolazone 2.5 mg Saturday, he states once that was started he lost 19 pounds of water weight and roughly 2 weeks and he presented to the hospital today with chief complaint of weakness and chest pain at [place]. [place] was found to have FRANK with his creatinine 3.26. He was given 1 L of IV fluids at [place] and then he was subsequently transferred here. His EKG was without any evidence of ischemia injury or infarction, his troponins were negative and his chest x-ray was within normal limits. Review of Systems Review of Systems All other systems reviewed & are negative unless noted below or in HPI PMFSH Vaccinated for COVID-19?: No Medical History (Updated 04/16/23 @ 05:26 by Albert Woods DO) Amputee, below knee RIGHT Anxiety and depression Apnea Asthma Autonomic dysfunction BPH (benign prostatic hyperplasia) CKD (chronic kidney disease) stage 3, GFR 30-59 ml/min CVA (cerebral vascular accident) Diabetes mellitus, type 2 Diabetic neuropathy Generalized headaches Hypertension Hypertensive emergency Hypothyroid PRAVEENA on CPAP PAD (peripheral artery disease) Parkinson disease Pulmonary sarcoidosis Right hemiplegia Seizure disorder Seizures Tobacco abuse Surgical History S/P percutaneous transluminal angioplasty ([employer]) Family History Other Diabetes mellitus, type 2 Hypertension Stroke Social History Smoking Status: Current every day smoker Tobacco Type: cigarettes Substance Use Type: None Meds Medications and Allergies Allergies promethazine [From Phenergan] Allergy (Verified 04/21/22 21:08) Unknown Reaction Home Medications carvedilol 12.5 mg tablet 12.5 mg PO BID.WITH.MEALS 08/14/21 [Rx Confirmed 04/21/22] levothyroxine 25 mcg tablet 25 mcg PO DAILY.0630 #30 tabs 08/14/21 [Rx Confirmed 04/15/23] omeprazole 20 mg capsule,delayed release 20 mg PO DAILY #30 caps 08/14/21 [Rx Confirmed 04/15/23] melatonin 10 mg tablet 20 mg PO HS PRN Sleep 01/10/22 [History Confirmed 04/15/23] nicotine 21 mg/24 hr daily transdermal patch 1 patch transdermal DAILY PRN Nicotine Cravings 30 days #28 ea 01/12/22 [Rx Confirmed 04/15/23] insulin detemir U-100 100 unit/mL (3 mL) subcutaneous pen (Levemir FlexTouch U- 100 Insulin) 42 unit subcut BID 04/21/22 [History Confirmed 04/21/22] losartan 25 mg tablet 50 mg PO QAM 04/21/22 [History Confirmed 04/15/23] albuterol sulfate 90 mcg/actuation aerosol inhaler 2 puff inhalation Q4H PRN Shortness Of Breath 04/15/23 [History] amlodipine 10 mg tablet 10 mg PO DAILY 04/15/23 [History Confirmed 04/15/23] atorvastatin 80 mg tablet 40 mg PO QPM 04/15/23 [History Confirmed 04/15/23] bumetanide 1 mg tablet 1 mg PO DAILY 04/15/23 [History] insulin glargine 100 unit/mL (3 mL) subcutaneous pen (Lantus Solostar U-100 Insulin) 42 unit subcut BID 04/15/23 [History Confirmed 04/15/23] metolazone 2.5 mg tablet 2.5 mg PO QMWF 04/15/23 [History Confirmed 04/15/23] Exam Physical Exam Vital Signs: Temp Pulse Resp BP Pulse Ox O2 Del Method O2 Flow Rate 97.9 F 76 22 112/74 96 Nasal Cannula 2 04/15/23 22:32 04/15/23 22:32 04/15/23 22:32 04/15/23 22:32 04/15/23 22:32 04/16/23 01:11 04/16/23 01:11 Narrative: General: Awake alert, no acute distress HEENT: head atraumatic, normocephalic, moist mucous membranes Neck: supple no masses, no lymphadenopathy CVS: regular rate and rhythm, no murmurs or gallops Respiratory: clear to auscultation bilaterally, no wheezing or crackles, symmetric expansion GI: soft, nondistended, nontender, positive bowel sounds with no organomegaly Extremity: moves all extremities, no restrictions of movements, no calf tenderness, no edema, right BKA, left lower extremity has no signs of any edema Neuro: AOx3, CN II-VII intact. Moves all extremities in all planes of motion. Skin: dry, intact no rashes or lesions Assessment & Plan Assessment/Plan (1) FRANK (acute kidney injury): Plan: ? Secondary to dehydration from overdiuresis ? Hold his home diuretics ? She received 1 L IV fluids at [place] ? Received 2 more liters of IV Ringer's lactate at 125/h ? Daily BMPs and magnesium ? He is currently on 2 L of cannula, this is probably from atelectasis from dehydration, titrate down oxygen as tolerated (2) Dehydration: (3) CKD (chronic kidney disease) stage 3, GFR 30-59 ml/min: Plan ? DVT prophylaxis with Lovenox ? Cardiac diet ? Full code ?Patient require IV fluids and close monitoring of his overall fluid status as he has a history of fluid overload, his diuretics will likely need to be restarted once he reaches euvolemic state and this will likely take more than 2 midnights thus he is admitted as inpatient. IP vs OBS Justification Based on differential dx, clinical care plan, and risk of adverse events, if untreated, in my clinical judgement this patient requires an acute care setting as: INPATIENT because of an expectation of an over 2 midnight stay. Estimated length of stay (# of days): 3 Documented By: Albert Woods DO 04/16/23519 Signed By: <Electronically signed by Albert Woods DO> 04/16/23 0529 [facility] Work Phone: [phone]) 997-167306-28-2023 Evaluation note* Encounter Date Diagnosis Assessment Notes Treatment Notes Treatment Clinical Notes Mar, Cristobal hy kid w cr kid I-IV (ICD-10 - I12.9) [place] Other 05-23-2023 NotePROCEDURE: XR CHEST 1 V DATE: 03/04/2023 10:20 PM CDT COMPARISONS: 07/31/2022 CLINICAL INDICATION: 52 years Male SHORTNESS OF BREATH FINDINGS: The heart is upper normal in size, slightly more prominent than previous exam. There is mild diffuse increased interstitial markings throughout all lung lynne more prominent than previous exam. This could be some interstitial fluid due to congestion. It could represent a small amount of diffuse interstitial inflammatory infiltrate. There is no evidence of pleural effusion or pneumothorax. IMPRESSION: Slight diffuse increased interstitial markings have developed, as discussed above, most likely representing some interstitial fluid due to congestion. Electronically authenticated by: JUAN LUIS HAND Date: 2023-03-05 07:12[id number] NoteRight Eye Quality was good. Scan locations included subfoveal. Progression has worsened. Findings include intraretinal fluid. Left Eye Quality was good. Scan locations included subfoveal. Progression has worsened. Findings include intraretinal fluid. Notes Atrophy and IRF OU Brady Lowry MD [id number] Instructions* Patient Instructions* Maddie Lau MD - 01/01/2023 5:53 PM EDT Use the provided antibiotic ointment on the eyelids and in both eyes 4x per day until redness and irritation resolves. If your symptoms worsen, please call or report to a local urgent care/emergency department. Our team will call you tomorrow to schedule your next visit. If you do not hear from us tomorrow, please call on to schedule an appointment for next Saturday. documented in this [id number] History of Present illness Narrative* Maddie Lau MD - 01/01/2023 5:05 PM EDT Urgent visit for eye irritation OU and vision change OS Pt had recent visit with Dr. Frank on 12/19/22 in which he received PRP OU Prior to that visit, last visit was 03/2022 Longstanding PDR OU, DME, mac ischemia OU Did not notice any real improvement with injections Floaters did improve, now they are back A/P 1. 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 OU - acute change is likely related to interval increase in macular edema as demonstrated on OCT - Has been lost to follow-up in the past due to poor health and hospital admissions - lives 2 [place] RIGHT - PDR without HRC - [facility] CF - s/p PRP multiple injections - avastin 02/2021, March 2022 - Active NVD - avastin OD - OCT - interval increase in CME - PRP fill in as he is missing visits LEFT- PDR with VH and subhyaloid heme - OCT - interval increase in CME - S/P avastin multiple, most recent March 2022 - s/p PRP OS 10/24/20, fillin oct 2021 - add fillin at next visit - avastin OS Next visit PRP either eye Advised pt will need close f/u with Dr. Frank Offered appointment tomorrow, pt declines due to drive Will arrange for visit next Saturday; will have schedulers call pt to arrange (he needs to check with family members re: timing) 2. Conjunctivitis OU 3. Redness, flakiness of upper eyelid skin OU - Pt reports irritation, itchiness, burning, and occasional stabbing pains OU. ROS negative including for fevers, malaise, URI symptoms. No recent sick contacts. No one else in the home has similar symptoms - Exam notable for diffuse tr inj OD, 1+ OU, mild papillary rxn, mucous discharge. No induration, overall very low c/f cellulitis. Appearance is most consistent with viral conjunctivitis versus contact dermatitis/allergic conjunctivitis - Erythromycin ointment QID to eyes and lids - Cool compresses, ATs PRN, good hand hygiene - Strict precautions to call or report to local ED/urgent care (pt lives ~2 hrs away) for worseningsymptoms - pt reports understanding and is in agreement Not specifically addressed today: Amaurosis fugax OU - Reported ~08/2020 with transient vision loss episodes but now resolved as of 10/2020 - 12/2019 MRA neck no ICA stenosis - GCA symptoms POWELL, jaw mikaela, F/C negative - rec go to ED if symptoms recur Dilate ou Oct ou Color photos ou PRP Maddie Lau MD Ophthalmology Resident Seen with Dr. Lowry documented in this [id number] History of Present illness Narrative* Brady Lowry MD - 01/01/2023 5:05 PM EDT Urgent visit for eye irritation OU and vision change OS Pt had recent visit with Dr. Frank on 12/19/22 in which he received PRP OU Prior to that visit, last visit was 03/2022 Longstanding PDR OU, DME, mac ischemia OU Did not notice any real improvement with injections Floaters did improve, now they are back A/P 1. 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 OU - acute change is likely related to interval increase in macular edema as demonstrated on OCT - Has been lost to follow-up in the past due to poor health and hospital admissions - lives 2 [place] RIGHT - PDR without HRC - [facility] CF - s/p PRP multiple injections - avastin 02/2021, March 2022 - Active NVD - avastin OD - OCT - interval increase in CME - PRP fill in as he is missing visits LEFT- PDR with VH and subhyaloid heme - OCT - interval increase in CME - S/P avastin multiple, most recent March 2022 - s/p PRP OS 10/24/20, fillin oct 2021 - add fillin at next visit - avastin OS Next visit PRP either eye Advised pt will need close f/u with Dr. Frank Offered appointment tomorrow, pt declines due to drive Will arrange for visit next Saturday; will have schedulers call pt to arrange (he needs to check with family members re: timing) 2. Conjunctivitis OU 3. Redness, flakiness of upper eyelid skin OU - Pt reports irritation, itchiness, burning, and occasional stabbing pains OU. ROS negative including for fevers, malaise, URI symptoms. No recent sick contacts. No one else in the home has similar symptoms - Exam notable for diffuse tr inj OD, 1+ OU, mild papillary rxn, mucous discharge. No induration, overall very low c/f cellulitis. Appearance is most consistent with viral conjunctivitis versus contact dermatitis/allergic conjunctivitis - Erythromycin ointment QID to eyes and lids - Cool compresses, ATs PRN, good hand hygiene - Strict precautions to call or report to local ED/urgent care (pt lives ~2 hrs away) for worseningsymptoms - pt reports understanding and is in agreement Not specifically addressed today: Amaurosis fugax OU - Reported ~08/2020 with transient vision loss episodes but now resolved as of 10/2020 - 12/2019 MRA neck no ICA stenosis - GCA symptoms POWELL, jaw mikaela, F/C negative - rec go to ED if symptoms recur Dilate ou Oct ou Color photos ou PRP Maddie Lau MD Ophthalmology Resident Seen with Dr. Lowry I saw and evaluated the patient and supervised procedures performed. I personally obtained the mccoy and critical portions of the history and the ophthalmologic exam. I reviewed the resident's documentation and discussed the patient's history and examination with the resident. I agree with the resident's medical decision making as documented in the resident's note. Brady Lowry MD documented in this [id number] NoteTime Out Confirmed correct patient, procedure, site, and patient consented. Anesthesia Subconjunctival anesthesia was used. Anesthetic medications included Lidocaine 2%. Laser Information Right Eye The type of laser was argon. Color was green. The duration in seconds was 0.1. Laser power was 380. Total spots was 1053. Left Eye The type of laser was argon. The duration in seconds was 0.1. Laser power was 380. Total spots was 1099. Post-op The patient tolerated the procedure well. There were no complications. The patient received written and verbal post procedure care education. Notes Well tolerated fill in OU Inferior VH limiting uptake [id number] NoteRight Eye Quality was good. Scan locations included subfoveal. Progression has been stable. Findings include abnormal foveal contour. Left Eye Quality was good. Scan locations included subfoveal. Progression has been stable. Findings include abnormal foveal contour. Notes Atrophy/thin retina [id number] History of Present illness Narrative * Hema Lees MD - 12/19/2022 3:37 PM EST Lost to f/u since March 2022 Longstanding PDR OU, DME, mac ischemia OU Sp PRP OU, last seen in March Repeated injections - last March 2022 Did not notice any real improvement with injections Floaters did improve, now they are back A/P 1. 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 OU - Has been lost to follow-up in the past due to poor health and hospital admissions RIGHT - PDR without HRC - [facility] CF - s/p PRP multiple injections - avastin 02/2021, March 2022 - Active NVD - avastin OD OCT stable thinning/atrophy PRP OD today LEFT- PDR with VH and subhyaloid heme - OCT - improved CME - S/P avastin multiple, most recent March 2022 - s/p PRP OS 10/24/20, fillin oct 2021 OCT stable thinning/atrophy PRP OS today Needs fill in PRP to prevent other neovascular complications Next visit PRP either eye Not specifically addressed today: 2. Amaurosis fugax OU - Reported ~08/2020 with transient vision loss episodes but now resolved as of 10/2020 - 12/2019 MRA neck no ICA stenosis - GCA symptoms POWELL, jaw mikaela, F/C negative - rec go to ED if symptoms recur Return 2 months Dilate OU OCT mac OU documented in this [id number] NoteRight Eye Quality was good. Scan locations included subfoveal. Progression has improved. Findings include abnormal foveal contour, intraretinal fluid. Left Eye Quality was good. Scan locations included subfoveal. Progression has improved. Findings include abnormal foveal contour, intraretinal fluid. [id number] History of Present illness Narrative* Demetri Frank MD - 10/17/2022 4:33 PM EST Lost to f/u since March 2022 Longstanding PDR OU, DME, mac ischemia OU Sp PRP OU, last seen in March Repeated injections - last March 2022 Did not notice any real improvement with injections Floaters did improve, now they are back A/P 1. 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 OU - Has been lost to follow-up in the past due to poor health and hospital admissions RIGHT - PDR without HRC - [facility] CF - s/p PRP multiple injections - avastin 02/2021, March 2022 - Active NVD - avastin OD Improved on OCT - PRP fill in as he is missing visits LEFT- PDR with VH and subhyaloid heme - OCT - improved CME - S/P avastin multiple, most recent March 2022 - s/p PRP OS 10/24/20, fillin oct 2021 - add fillin at next visit - avastin OS Needs fill in PRP to prevent other neovascular complications Next visit PRP either eye Not specifically addressed today: 2. Amaurosis fugax OU - Reported ~08/2020 with transient vision loss episodes but now resolved as of 10/2020 - 12/2019 MRA neck no ICA stenosis - GCA symptoms POWELL, jaw mikaela, F/C negative - rec go to ED if symptoms recur Dilate ou Oct ou Color photos ou PRP documented in this [id number] NoteHNO ID: [id number] Author: Vj Haddad II, OD Service: ? Author Type: SR. VENDOR MANAGEMENT ASSOCIATE Type: Progress Notes Filed: 09/03/2022 5:22 PM Note Text: Assessment and Plan Z02.71 Disability examination (primary encounter diagnosis) Comment: Patient understands that today's examination is for purposes of disability determination only. Patient will continue all ongoing care with previously established care givers. 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, unspecified whether moth exterminator insulin use (HCC) E11.3592 Type 2 diabetes mellitus with proliferative diabetic retinopathy of left eye without macular edema, unspecified whether moth exterminator insulin use (HCC) Comment: Last intraocular injection in March 2022. Patient doesn't know current medications. Reported as lost to follow-up by retinal specialist in past records. H52.13 Myopia, bilateral H52.223 Regular astigmatism, bilateral H52.4 Presbyopia Comment: No current glasses. I have confirmed and edited as necessary the relevant ophthalmic history, ROS, and the neuro exam findings as obtained by others. I have seen and examined Chandler Minor. I have discussed the case and the management of this patient's care with the Resident/Fellow, if applicable. I also have reviewed and agree with the assessment and plan as stated above and agree with all of its relevant components. Vj Haddad II, [facility] Instructions* Patient Instructions* Vj Haddad II, OD - 09/03/2022 5:11 PM EST documented in this [facility]11-21-2022 History of Present illness Narrative* Vj Haddad II, OD - 09/03/2022 5:08 PM EST Assessment and Plan Z02.71 Disability examination (primary encounter diagnosis) Comment: Patient understands that today's examination is for purposes of disability determination only. Patient will continue all ongoing care with previously established care givers. 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, unspecified whether moth exterminator insulin use (HCC) E11.3592 Type 2 diabetes mellitus with proliferative diabetic retinopathy of left eye without macular edema, unspecified whether moth exterminator insulin use (HCC) Comment: Last intraocular injection in March 2022. Patient doesn't know current medications. Reported as lost to follow-up by retinal specialist in past records. H52.13 Myopia, bilateral H52.223 Regular astigmatism, bilateral H52.4 Presbyopia Comment: No current glasses. I have confirmed and edited as necessary the relevant ophthalmic history, ROS, and the neuro exam findings as obtained by others. I have seen and examined Chandler Minor. I have discussed the case and the management of this patient's care with the Resident/Fellow, if applicable. I also have reviewed and agree with the assessment and plan as stated above and agree withall of its relevant components. Vj Haddad II, OD [facility]* Encounter Date Diagnosis Assessment Notes Treatment Notes Treatment Clinical Notes Aug, Type 2 diabetes mellitus with hyperglycemia (ICD-10 - E11.65) [place] [facility] 11-14-2022 Evaluation note* Encounter Date Diagnosis Assessment Notes Treatment Notes Treatment Clinical Notes Aug, Type 2 diabetes mellitus with hyperglycemia (ICD-10 - E11.65) [facility] [place] [facility] 08-03-2022 Evaluation note* Encounter Date Diagnosis Assessment Notes Treatment Notes Treatment Clinical Notes May, Type 2 diabetes mellitus with hyperglycemia (ICD-10 - E11.65) 1. Uncontrolled, a Type 2 diabetes with A1c of 8.6%. 2. Blood glucose levels improved from last visit 01/10/22 a1c was 15.8%. According to dexYour Last Chance g6 cgm download 05/03/22-05/16/22: Avg glucose 184. >250-24.4%, >180-45.2%, 70-180-53.8%, <70-1%, <54-0%. CV 44.6. SD 82. Reviewed download with pt, readings above target from underestimation of insulin for carb load. Infrequent incidence of hypoglycemia from overestimation of insulin for carb load. Discussed with pt d/t cvd risk factors starting sglt2. Pt reports he is circumcised. Reviewed most common s/e. Reviewed if ill n/v/d or surgery medication would need stopped. Pt agreeable to starting [id number] once daily 3. Patient is alert, oriented and receptive to making changes or counseling. Notes: Seen for an assessment of current glucose pattern, changes in treatment plan, counseling and coordination of care related to diabetes, risks, and benefits of treatment, medications, side effects. Given handouts to reinforce concepts reviewed during counseling, see scanned notes. TOPICS REVIEWED: 1. Time was spent reviewing: a. Basic concepts of diabetes, progressive beta cell , concepts of basal/bolus/correcti ve insulin requirements. Basal: The goal is fasting blood glucose of 90-130mg. IF fasting blood glucose starts to run under 100mg 3x's/ week, decrease dose by 10%. Bolus: The goal is to hold the blood glucose level steady meal to meal. If pt. is going to have increased physical activity after a meal, decrease the schedule meal dose prior to the activity by 30-50%. If pt. skips a meal do not take this dose. Correction: The goal is to correct an elevated glucose back into the 100-150mg range b. Nutrition: Concepts of healthy diet, encouraged to decrease saturated fat in diet and increase non-starchy vegetables and fruits in diet. BMI: Pt. needs to select one small change to decrease caloric intake or increase physical activity to help decrease weight. c. Correct treatment of hypoglycemia, carry a glucose source at all times on your person, in vehicles, and at bedside. Can use glucose tablets/4, four ounces of pop or juice equal to 15 G of carbohydrate. Blood glucose should be 100 mg/dl or higher when driving. d. ADA glucose goals for age and medical complexity reviewed e. Patient questions addressed 2. Activity/exercise: Encouraged to start any form of physical activity. Start low level and increase slowly to a minimal goal of 150 minutes/week. Limit activity to what is allowed by other issues such as cardiac, pulmonary or orthopedic restrictions. 3. Standards of care: Reminded to have an annual dilated eye exam, A1C every 3 months, urine testing for microalbumin once/year, check feet daily and report any cuts or sores that do not appear to be healing. 4. Meter: Plan to check blood glucose: Please check blood glucose levels 4 times/day. Back to back meals reveal effectiveness of bolus dosing. The blood glucose data is used to determine insulin doses and confirm symptoms for hypoglycemia and hyperglcyemia. 5. [facility] Contact office if any issues or concerns with patterns of hypoglycemia, hyperglycemia, or diabetes medication issues. 6. Prescriptions: Sent jardiance to dasia walton as requested. 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 Progression has worsened. Findings include intraretinal fluid, subretinal fluid, abnormal foveal contour. Left Eye Quality was good. Progression has worsened. Findings include intraretinal fluid, subretinal fluid, abnormal foveal contour.[id number] History of Present illness Narrative* Demetri Frank MD - 03/21/2022 3:46 PM EDT Lost to f/u since Oct 2021 Longstanding PDR OU, DME, mac ischemia OU Sp PRP OU Repeated injections last 03/06/21 A/P 1. 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 Amaurosis fugax OU - Reported ~08/2020 with transient vision loss episodes but now resolved as of 10/2020 - 12/2019 MRA neck no ICA stenosis - GCA symptoms POWELL, jaw mikaela, F/C negative - rec go to ED if symptoms recur precert eylea [id number] today F/u 4-6 weeks shahla/vivian Dilate ou Oct ou Color photos ou documented in this [id number] Telephone encounter Note* Telephone Encounter - Agustin Munguia MD - 03/19/2022 9:20 AM EDT Already has appt this 03/21 [facility] Phone: 1(297) 813-476706-06-2022 Miscellaneous Notes* Telephone Encounter - Agustin Munguia MD - 03/19/2022 9:20 AM EDT Already has appt this 03/21 Confirmed appt with family * Telephone Encounter - Rita Gonzalez - 03/19/2022 8:05 AM EDT Pt's family called back in regarding this issue. They are very frustrated because they never received a call from anyone with an appt date/time. They request a call at [phone] to proceed. She states she will call back in tomorrow should she not hear back. Thank you. * Telephone Encounter - Ebonie Huizar - 03/07/2022 10:43 AM EDT Family calling in on behalf of pt - regarding above mssgs. Asking to be rescheduled for sooner appt when possible. Best contact # [phone] Thank you! * Telephone Encounter - Rita Gonzalez - 02/12/2022 10:28 AM EDT Pt was last seen 10/2021 and advised to follow up with [facility]. However the pt missed the follow up(s) and states this was because he was admitted in the hospital at the time. The next available appt is in April. The pt feels he needs to be seen sooner as his eyes are worsening and he cannot see. Please contact pt at [phone] to discuss/advise. Thank you. documented in this [id number] Miscellaneous Notes* Telephone Encounter - Rita Gonzalez - 03/19/2022 8:05 AM EDT Pt's family called back in regarding this issue. They are very frustrated because they never received a call from anyone with an appt date/time. They request a call at [phone] to proceed. She states she will call back in tomorrow should she not hear back. Thank you. * Telephone Encounter - Ebonie Huizar - 03/07/2022 10:43 AM EDT Family calling in on behalf of pt - regarding above mssgs. Asking to be rescheduled for sooner appt when possible. Best contact # [phone] Thank you! * Telephone Encounter - Rita Gonzalez - 02/12/2022 10:28 AM EDT Pt was last seen 10/2021 and advised to follow up with the retina fellows clinic. However the pt missed the follow up(s) and states this was because he was admitted in the hospital at the time. The next available appt is in April. The pt feels he needs to be seen sooner as his eyes are worsening and he cannot see. Please contact pt at [phone] to discuss/advise. Thank you. documented in this [id number] Telephone encounter Note* Telephone Encounter - Rita Gonzalez - 03/19/2022 8:05 AM EDT Pt's family called back in regarding this issue. They are very frustrated because they never received a call from anyone with an appt date/time. They request a call at [phone] to proceed. She states she will call back in tomorrow should she not hear back. Thank you. [id number] Evaluation note* Encounter Date Diagnosis Assessment Notes Treatment Notes Treatment Clinical Notes February, Other Summary of Visi t: (A) reviewed which foods have carbs and which are low carb (B) basic carb counting (C) treatment of hypoglycemia Patient set the following goals: - practice carb counting and dosing insulin accurately [facility] [place] Other 05-25-2022 Evaluation note* Encounter Date Diagnosis Assessment Notes Treatment Notes Treatment Clinical Notes February, Type 2 diabetes mellitus with hyperglycemia (ICD-10 - E11.65) [place] Other 05-25-2022 Telephone encounter Note* Telephone Encounter - Ebonie Huizar - 03/07/2022 10:43 AM EDT Family calling in on behalf of pt - regarding above mssgs. Asking to be rescheduled for sooner appt when possible. Best contact # [phone] Thank you! [id number] Miscellaneous Notes* Telephone Encounter - Ebonie Huizar - 03/07/2022 10:43 AM EDT Family calling in on behalf of pt - regarding above mssgs. Asking to be rescheduled when possible. Best contact # [phone] Thank you! * Telephone Encounter - Rita Gonzalez - 02/12/2022 10:28 AM EDT Pt was last seen 10/2021 and advised to follow up with the [facility] fellows clinic. However the pt missed the follow up(s) and states this was because he was admitted in the hospital at the time. The next available appt is in April. The pt feels he needs to be seen sooner as his eyes are worsening and he cannot see. Please contact pt at [phone] to discuss/advise. Thank you. documented in this [id number] Miscellaneous Notes* Telephone Encounter - Ebonie Huizar - 03/07/2022 10:43 AM EDT Family calling in on behalf of pt - regarding above mssgs. Asking to be rescheduled for sooner appt when possible. Best contact # [phone] Thank you! * Telephone Encounter - Rita Gonzalez - 02/12/2022 10:28 AM EDT Pt was last seen 10/2021 and advised to follow up with the retina fellows clinic. However the pt missed the follow up(s) and states this was because he was admitted in the hospital at the time. The next available appt is in April. The pt feels he needs to be seen sooner as his eyes are worsening and he cannot see. Please contact pt at [phone] to discuss/advise. Thank you. documented in this [id number] Evaluation note* Encounter Date Diagnosis Assessment Notes Treatment Notes Treatment Clinical Notes February, Type 2 diabetes mellitus with hyperglycemia (ICD-10 - E11.65) [facility] [place] Other 05-02-2022 Telephone encounter Note* Telephone Encounter - Rita Gonzalez - 02/12/2022 10:28 AM EDT Pt was last seen 10/2021 and advised to follow up with the retina fellows clinic. However the pt missed the follow up(s) and states this was because he was admitted in the hospital at the time. The next available appt is in April. The pt feels he needs to be seen sooner as his eyes are worsening and he cannot see. Please contact pt at [phone] to discuss/advise. Thank you. [id number] Miscellaneous Notes* Telephone Encounter - Rita Gonzalez - 02/12/2022 10:28 AM EDT Pt was last seen 10/2021 and advised to follow up with the retina fellows clinic. However the pt missed the follow up(s) and states this was because he was admitted in the hospital at the time. The next available appt is in April. The pt feels he needs to be seen sooner as his eyes are worsening and he cannot see. Please contact pt at [phone] to discuss/advise. Thank you. documented in this [id number] Evaluation note* Encounter Date Diagnosis Assessment Notes Treatment Notes Treatment Clinical Notes Jan, Type 2 diabetes mellitus with hyperglycemia (ICD-10 - E11.65) Patient in today for review of blood glucose logs, food logs, and insulin dosing. Patient's Dexcom G6 Pro was downloaded with ranges between lowest 50-400 highest for the past 10 days. Average reading 146 mg/dl. CGM active 99.1%. Time in ranges very high 6.9%, high 21.9%, target range 75.7%, low 2.3%, and very low 0%. Patient states he has been checking his blood sugars ac, hs with a glucose goal of 90-130 ac 120-180 hs. Patient does not know how to count carbs, but uses ICR 10-15-20-25 units ac according to meal size S-M-L-XL. Pt states on average he uses 15-20 units of Humalog per meal. Patient has been able to use corrective scale 1:25 before meals. Pro Dexcom report downloaded and discussed with Caryn Das APRN. Per TKM for patient to continue Humalog with 1:3 ICR with intake. Every 4 hours correct with 1:25 scale, unless bedtime which he will receive half coverage only if over 200 mg/dl. Continue Levemir 42 units bid, and Victoza 1.8mg daily. Pt admits one day he took Victoza and his morning dose of Levemir late. Advised pt it is best if long-acting insulin is given at the same time each day, 12 hours apart. If his fasting or supper blood glucose were to run less than 100 mg/dl 3 days/week, he is to decrease Levemir to 40 units bid. Pt states understanding. Discussed meal planning examples and reviewed use of use of corrective scale. Encouraged to continue logging food, insulin tid, and testing glucose before meals and bedtime. Order placed for Dexcom G6 CGM to [facility]. [facility] contact information provided to pt. All questions and concerns addressed. Encouraged to follow up for next appointment. 30 minutes was spent on education by Blanca STRAUSS, TANYA. Reviewed dexcom g6 cgm download with recommendation to reduce levemir to 40 units bid. Payton PAUL, STAFF EDITOR-C [facility] [place] Other 04-15-2022 Evaluation note* Encounter Date Diagnosis Assessment Notes Treatment Notes Treatment Clinical Notes Jan, Type 2 diabetes mellitus with hyperglycemia (ICD-10 - E11.65) Chandler and his came in today for Dexcom training. He forgot to bring his Smart phone. I placed a Dexcom G6 Professional sensor on the back of his left arm. He was given Log sheets and is to log his BG, food, and Insulin for the next 10 days. He is scheduled for a follow up on 02/06/22. 30 minutes was spent educating the patient by Dolores Osborne RN. [facility] Other 04-11-2022 Evaluation note* Encounter Date Diagnosis Assessment Notes Treatment Notes Treatment Clinical Notes Jan, Type 2 diabetes mellitus with hyperglycemia (ICD-10 - E11.65) 1. Uncontrolled, a Type 2 diabetes with A1c of 15.8% 01/10/2022 [facility] 2. Blood glucose levels above target. Recommend modifying basal/bolus/correct jovi insulin. See above. Reviewed with pt how to count clicks on his insulin pen -if he is having difficulty with seeing, also encouragd to use a magnifing glass. Enlarged all of insulin instructions 175% for pt- he was able to read instructions out load to me today from printed instructions. Reviewed he will need to count 20 clicks from beginning for victoza 1.2mg dose and will need to dial all the way to end for 1.8mg dose; recommend he increase victoza to 1.2mg once daily x1 week then increase to 1.8mg dose. Recommend f/u apt with adjunct psychology faculty member for application of dexcom g6- he is to bring his phone to see if compatible for julia for dexcom g6- if not compatible will recommend he wear professional dexcom blinded x10 days. He was given log book instructed to log meals, glucose, insulin dosing and bring to f/u apt for review with adjunct psychology faculty member. Also recommend he see RD to assist with carb counting. He is interested in insulin pump. He was also given phone number/website to [employer] [place], encouraged to call for apt. Will send [employer] talking meter- meter blood sampling for strip is in the front. 3. Patient is alert, oriented and receptive to making changes or counseling. Notes: Seen for 60 minutes for an assessment of current glucose pattern, changes in treatment plan, counseling and coordination of care related to diabetes, risks, and benefits of treatment, medications, side effects. Given handouts to reinforce concepts reviewed during counseling, see scanned notes. TOPICS REVIEWED: 1. Time was spent reviewing: a. Basic concepts of diabetes, progressive beta cell , concepts of basal/bolus/correct jovi insulin requirements. Basal: The goal is fasting blood glucose of 90-130mg. IF fasting blood glucose starts to run under 100mg 3x's/ week, decrease dose by 10%. Bolus: The goal is to hold the blood glucose level steady meal to meal. If pt. is going to have increased physical activity after a meal, decrease the schedule meal dose prior to the activity by 30-50%. If pt. skips a meal do not take this dose. Correction: The goal is to correct an elevated glucose back into the 100-150mg range b. Nutrition: Concepts of healthy diet, encouraged to decrease saturated fat in diet and increase non-starchy vegetables and fruits in diet. BMI: Pt. needs to select one small change to decrease caloric intake or increase physical activity to help decrease weight. c. Correct treatment of hypoglycemia, carry a glucose source at all times on your person, in vehicles, and at bedside. Can use glucose tablets/4, four ounces of pop or juice equal to 15 G of carbohydrate. Blood glucose should be 100 mg/dl or higher when driving. d. ADA glucose goals for age and medical complexity reviewed e. Patient questions addressed 2. Activity/exercise: Encouraged to start any form of physical activity. Start low level and increase slowly to a minimal goal of 150 minutes/week. Limit activity to what is allowed by other issues such as cardiac, pulmonary or orthopedic restrictions. 3. Standards of care: Reminded to have an annual dilated eye exam, A1C every 3 months, urine testing for microalbumin once/year, check feet daily and report any cuts or sores that do not appear to be healing. 4. Meter: Plan to check blood glucose: Please check blood glucose levels 4 times/day. Back to back meals reveal effectiveness of bolus dosing. The blood glucose data is used to determine insulin doses and confirm symptoms for hypoglycemia and hyperglcyemia. 5. [facility]. Contact office if any issues or concerns with patterns of hypoglycemia, hyperglycemia, or diabetes medication issues. 6. Prescriptions: Uses [employer] [place]. 7. F/u with adjunct psychology faculty member 2 weeks application of dexcom- see above. Referral to RD for instruction on carb counting- pt interested in insulin pump. 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 Pt. currently using insulin injections >3 times/day with insulin to carb ratio/corrective factor and requires frequent self adjustment of insulin based on carbohydrate intake, physical activity blood glucose monitoring. A CGM would improve ease of access to glucose results and reduce risk of hypoglcyemia/hyperg lycemia. [place] Other 04-01-2022 Hospital Discharge instructionsAmbulatory Orders* Initiate Home Health Time Frame: 01/12/22, Location: Determined By Patient Additional Instructions Continue to check glucose levels before meals and at bedtime. Home health to manage: -RN/PT/OT to eval and treat -Monitor VS per protocol -Fall precautions -Perform cardiovascular assessments -Assist with medication management and education -Monitor FSBS ACHS -Change dressing daily: *Right shoulder I&D- Clean with Vashe and pat dry. Apply Therahoney gel to wound bed and gently fill with 1/4 nugauze. Secure with Mepilex border foam. DISCHARGE INSTRUCTIONS FOR CARDIAC RESEARCH AFFILIATE PHONE NUMBER OF YOUR PHYSICIAN: [phone] PROCEDURE: Heart Cath The following instructions have been prepared to help you care for yourself, or be cared for upon your return home. 1. You were given conscious sedation. Do not operate a vehicle, power tools, make important decisions, or drink alcohol for 24 hours. You might be drowsy or light headed. Return to the Emergency Room if you have trouble breathing, walking or nausea and vomiting. 2. FOR BLEEDING: Apply continuous pressure to the site and call 911. 3. Operative Site Care: Keep the dressing clean and dry. You may change the dressing only if soiled or wet. You may remove the dressing the following morning. You may wash over the puncture site in the shower. If the puncture site is at the wrist no soaking for 3 days. Some bruising or slight swelling may be present. -Signs of infection are redness, warmth, swelling, getting more sore, colored drainage, fever or chills. -Should the arm or leg become cold, numb, blue or white, call the arboriculturist immediately. 4. ACTIVITY: You are advised to go directly home from the hospital. Restrict your activities for the rest of the day. Resume light or normal activities tomorrow. Do not engage in any activity that will stress the puncture site. Avoid heavy lifting (over 15 lbs.), straining or bending at the catheter site for 48 hours after discharge. If the puncture site is at the wrist do not manipulate wrist for 24 hours and no lifting more than 3 lbs for 3 days. 5. DIET:You may eat your regular diet when you desire. 6. MEDICATIONS: Resume your daily prescription schedule. Prescriptions may be sent with you if needed. Use as directed. When taking pain medications, you may experience dizziness or drowsiness. Do not drink alcohol or drive when taking pain medications. 7. If you should experience episodes of angina e.g. chest discomfort, heaviness, tightness, pressure, burning, with or without radiation to the neck, jaws, arms, or back- Use 1 Nitrostat under your tongue every 5-10 minutes, and up to 3 tablets. If no relief- Call 911 and go to the nearest Emergency Room. -Notify the office for recurrent angina, chest pain or other concerns. You may NOT drive yourself home! Follow the medication instructions provided on your discharge. If the dosages and instructions on this sheet differ from the dosage and instructions on the bottle, follow the instructions on the bottle. [facility] is not responsible for incorrect prescription information provided by the patient during their visit. Do not stop your medications without consulting your health care provider. Please take the list with you to your next doctor's appointment.[facility] Work Phone: [phone]) 834-296103-31-2022 Progress note Author Jonn Wallace [facility] January 11, 2022 4:57pm Note Date/Time January 11, 2022 4:4 8pm [facility] [address] [place] [address] Hospitalist Progress Note Signed Patient: Chandler Minor MR#: [id number] : 1970 Acct:[id number] Age/Sex: 51 / M Adm Date: 2 Loc: Room: [address] [place] [address] Type : ADM INOo Attending Dr: Jonn Wallace MD Copies to: ~ Date of Service: 01/11/2022 Subjective Subjective Narrative: Patient was seen during morning rounds today, continues to complain of central chest pain, states that he has not had any relief of his chest pain since yesterday, his blood pressure has decreased to 132/74 today, he does not complain of any further visual disturbances or headache as he did yesterday. Hedenies any abdominal pain, no nausea/vomiting, no change in bowel habits, no respiratory complaints, no dysuria or hematuria, no acute events throughout the night. Exam Physical Exam Vital Signs: Temp Pulse Resp BP Pulse Ox 97.9 F 82 18 110/71 97 01/11/22 11:13 01/11/22 11:13 01/11/22 11:13 01/11/22 11:13 01/11/22 11:13 Narrative: Patient is conscious alert oriented to time place and person lying comfortably in his bed, not in pain, not in respiratory distress Head: Normocephalic, nontraumatic, appears grossly normal Eyes: Grossly normal Mouth: Moist mucous membranes, no gross abnormality Neck: Supple, no masses, no JVD, no lymphadenopathy Cardiovascular: Normal S1, normal S2, no added sounds, no murmurs, slightly tachycardic Respiratory: Decreased air entry bilaterally more profound towards the bases, noadded sounds, no wheezes/crackles/rhonchi Abdomen: Abdomen is obese, distended, soft to palpation, no tenderness to superficial or deep palpation, normoactive bowel sounds, no rigidity, no reboundtenderness, no acute peritoneal signs Lower limbs: Evidence of right BKA, appears normal with good femoral and popliteal pulse, left leg is cold in comparison to the right leg, is edematous with +2 edema, and is tender to palpation, pulses were difficult to palpate, however patient had good posterior tibial and dorsalis pedis Doppler signal, good capillary refill. Neurological: Pupils are equal and reactive to light, no RAPD, cranial nerve exam of 3, 4, 6 and 7 are intact, power is 5/5 in both upper and lower limbs, however patient is weaker on the right side than the left. Psychiatric: Patient has a depressed affect and was tearing up during the encounter. Objective Lab Results CBC & Chem 7: 01/11/22 05:10 01/11/22 05:10 Microbiology Results Microbiology 01/10/22 16:38 Nasal SARS Antigen (LFIA) - Final Meds Allergies and Active Meds Allergies promethazine [From Phenergan] Allergy (Verified 12/19/19 02:18) Unknown Reaction Active Meds: Active Medications Generic Name Dose Route Start Last Admin Trade Name Suze PRN Reason Stop Dose Admin Acetaminophen 650 mg 01/10/22 19:16 Acetaminophen 325 Mg Tablet PO 01/10/23 19:15 Q6HR PRN Pain Scale 1 - 3 or fever Aspirin 81 mg 01/11/22 09:00 01/11/22 08:55 Aspirin 81 Mg Tab.Chew PO 01/11/23 08:59 81 mg DAILY GUERLINE Administration Atorvastatin Calcium 40 mg 01/10/22 21:00 01/10/22 21:54 Atorvastatin 40 Mg Tablet PO 01/10/23 20:59 40 mg QPM GUERLINE Administration Bumetanide 1 mg 01/10/22 20:00 01/11/22 08:56 Bumetanide 1 Mg Tablet PO 01/10/23 19:59 1 mg BID@0800,1600 GUERLINE Administration Carvedilol 12.5 mg 01/10/22 20:00 01/11/22 08:56 Carvedilol 12.5 Mg Tablet PO 01/10/23 19:59 12.5 mg BID.WITH.MEALS GUERLINE Administration Citalopram Hydrobromide 20 mg 01/11/22 09:00 01/11/22 08:55 Citalopram 20 Mg Tablet PO 01/11/23 08:59 20 mg QAM GUERLINE Administration Clopidogrel Bisulfate 75 mg 01/11/22 09:00 01/11/22 08:55 Clopidogrel Bisulfate 75 Mg Tablet PO 01/11/23 08:59 75 mg DAILY GUERLINE Administration Cyclobenzaprine HCl 5 mg 01/10/22 19:28 Cyclobenzaprine 5 Mg Tablet PO 01/10/23 19:27 Q8H PRN Muscle Spasm Dextrose 0 gm 01/10/22 19:31 Dextrose 20 % In Water 10 Gm/50 Ml Syringe IV-PUSH 01/10/23 19:30 PRN PRN Hypoglycemia Glucose 0 gm 01/10/22 19:31 Dextrose 40% Gel 15 Gm Tube PO 01/10/23 19:30 PRN PRN Hypoglycemia Heparin Sodium (Porcine) 5,000 unit 01/10/22 22:00 01/11/22 06:17 Heparin 5,000 Unit/Ml Vial SUBCUT 01/10/23 21:59 5,000 unit Q8HR GUERLINE Administration Magnesium Sulfate 2 gm in 50 mls @ 25 mls/hr 01/10/22 19:22 Magnesium Sulf 2gm-*Swfi* IV 01/10/23 19:21 DAILY PRN Magnesium Level < 1.7 Dextrose/Sodium Chloride 1,000 mls @ 100 mls/hr 01/11/22 10:30 5 % Dextrose-0.45 % Nacl IV 01/11/23 10:29 .Q10H GUERLINE Insulin Aspart 10 units 01/11/22 07:30 01/11/22 08:57 Insulin Aspart 300 Units/3 Ml Insuln.Pen SUBCUT 01/11/23 07:29 10 units TID.AC GUERLINE Administration Insulin Aspart 0 units 01/10/22 22:00 01/11/22 08:57 Insulin Aspart 300 Units/3 Ml Insuln.Pen SUBCUT 01/10/23 21:59 7 units TID.WM.HS GUERLINE Administration Protocol Insulin Detemir 50 units 01/10/22 20:00 01/11/22 08:56 Insulin Detemir 300 Units/3 Ml Insuln.Pen SUBCUT 01/10/23 19:59 50 units BID GUERLINE Administration Labetalol HCl 20 mg 01/10/22 20:03 01/11/22 00:31 Labetalol 100 Mg/20 Ml Vial IV-PUSH 01/10/23 19:26 20 mg Q4H PRN Administration Hypertension Levothyroxine Sodium 25 mcg 01/11/22 06:30 01/11/22 06:17 Levothyroxine 25 Mcg Tablet PO 01/11/23 06:29 25 mcg DAILY.0630 GUERLINE Administration Melatonin 20 mg 01/10/22 23:30 01/10/22 23:33 Melatonin 5 Mg Tablet PO 01/10/23 23:29 20 mg QHS GUERLINE Administration Nicotine 1 each 01/10/22 19:44 Nicotine Patch 21 Mg/24hr 1 Each Patch.Td24 TRANSDERML 02/21/22 09:01 DAILY PRN Nicotine Cravings Nitroglycerin 0.4 mg 01/10/22 19:16 01/11/22 09:39 Nitroglycerin 0.4 Mg Tab.Subl SUBLINGUAL 01/10/23 19:15 0.4 mg Q5M PRN Administration Chest Pain Omeprazole 20 mg 01/11/22 09:00 01/11/22 08:55 Omeprazole 20 Mg Capsule.Dr PO 01/11/23 08:59 20 mg DAILY GUERLINE Administration Ondansetron HCl 4 mg 01/10/22 19:22 Ondansetron 4 Mg/2 Ml Vial IV-PUSH 01/10/23 19:21 Q6H PRN Nausea And Vomiting Potassium Chloride 40 meq 01/10/22 19:22 Potassium Chloride Er 20 Meq Tab.Er.Prt PO 01/10/23 19:21 DAILY PRN Hypokalemia Potassium Chloride 40 meq 01/11/22 10:25 Potassium Chloride Er 20 Meq Tab.Er.Prt PO STAT PRN Hypokalemia Ropinirole HCl 2 mg 01/10/22 22:00 01/11/22 08:56 Ropinirole 2 Mg Tablet PO 01/10/23 21:59 2 mg TID GUERLINE Administration Sennosides 2 tab 01/10/22 22:00 01/10/22 21:54 Sennosides 8.6 Mg Tablet PO 01/10/23 21:59 2 tab QHS GUERLINE Administration Sodium Chloride 0 ml 01/10/22 13:36 Sodium Chloride 0.9 % 10 Ml Syringe IV-PUSH 01/10/23 13:35 PRN PRN Flush Sodium Chloride 0 ml 01/11/22 10:25 Sodium Chloride 0.9 % 10 Ml Syringe IV-PUSH 01/11/23 10:24 PRN PRN Flush Terazosin HCl 2 mg 01/11/22 09:00 01/11/22 08:55 Terazosin 2 Mg Capsule PO 01/11/23 08:59 2 mg DAILY GUERLINE Administration Trazodone HCl 50 mg 01/10/22 22:00 01/10/22 21:54 Trazodone 50 Mg Tablet PO 01/10/23 21:59 50 mg QHS GUERLINE Administration A&P - Hospitalist Assessment/Plan (1) Hypertensive emergency: (2) Chest pain: (3) Diabetes mellitus: (4) Hx of right BKA: (5) Tobacco abuse: Plan Patient is a 51-year-old male with past medical history of hypertension, uncontrolled diabetes mellitus status post right BKA, PAD, CVA with minimal residual weakness, PAD, COPD, tobacco abuse, presented to the ER today complaining of typical cardiac chest pain. Patient was found to have a blood pressure of 205/102 indicating hypertensive emergency, admitted for hypertensiontreatment and further evaluation. Hypertensive emergency NSTEMI Patient has elevated blood pressure 212/100 with chest pain indicating a hypertensive emergency Today patient's blood pressure is 132/74, however he continues to have chest pain Continuous telemetry Troponin have been 43, 49, and 46 respectively EKG in the a.m. Continue home medications for hypertension, Bumex and carvedilol IV labetalol every 4 hours as needed Continue aspirin and Plavix D-dimer level is less than 200 Lower limb venous Doppler ultrasound is negative for superficial venous thrombosis or deep vein thrombosis Cardiology are following the patient, have decided to go for cardiac cath today Patient is n.p.o. for the procedure, was given slight breakfast this morning forfear of hyper glycemia Patient's TSH is 4.30 Hyperglycemia/uncontrolled type 2 diabetes mellitus: Detemir twice daily 50 units Aspart 10 units 3 times daily with #3 insulin sliding scale New A1c as most recent is in June showing HbA1c 15.7, HbA1c 15.8 this admission Continue to monitor glucose readings Continue to treat chronic medical conditions as per home medications DVT prophylaxis with subcutaneous heparin CODE STATUS: Full code Attending Attestation: Patient was personally seen by me on the day of encounter. I reviewed his history and performed mccoy elements of exam and formulated the plan of care and confirmed the medical student's note above. Plan of care reflects my direct input. Cardiac cath reveals severe two-vessel disease involving the entire LAD and a nondominant small right coronary artery. This is not amenable to stent placement. Will ensure patient is medically optimized with high-dose statin, dual antiplatelet therapy and appropriate diabetic and hypertensive control. Plan will be likely for discharge tomorrow if patient remains medically stable. Documented By: Jonn Wallace MD 2 1153 Signed By: <Electronically signed by Jonn Wallace MD> 01/11/22 3162 [facility] Work Phone: [phone]) 704-168003-31-2022 Consult note Author W Torsten [facility] January 11, 2022 2:30pm Note Date/Time January 11, 2022 2:3 0pm [facility] [address] [place] [address] Cardiology Consult Note Signed Patient: Chandler Minor MR#: [id number] : 1970 Acct:[id number] Age/Sex: 51 / M Adm Date: 2 Loc: 4 Room: [address] [place] [address] Type : ADM IN Attending Dr: Jonn Wallace MD Copies to: DO Jonn Zuniga MD W Jesús Sarmiento, ~ Cardiology HPI History of Present Illness Consult Date: 01/11/22 Reason for Consult: Chest pain HPI: Mr. Minor is a 51 year old male seen in interventional cardiology consultation at request of the hospitalist and in conjunction with fourth-year medical student Dr. Krystin Santana. We have evaluated and examined the patient, and concur with her management and current note. Patient presents with a PMHx of HTN, HLD, uncontrolled DM with neuropathy, rightBKA, PVD, CVA with right hemiplegia, obesity, CKD 3, tobacco abuse, Parkinson disease who presented yesterday with intermittent severe midsternal chest pain. Pt reports he has noticed this pain for some time, but it has worsened over the past 3 days, and has occurred while at sleep awakening him. Pt transports himself via wheelchair. He has increasing oxygen requirements, current saturation of 97% on 2.5L/min NC. Pt denies use of supplemental oxygen at home. Denies lightheadedness, dizziness, vision changes, palpitations, abdominal pain,N/V, worsened LE edema. Troponin 43 -> 49 -> 46. BNP 252. Cr 1.3 and Hgb 10.6. EKG with t-wave inversions in leads I and aVL. US venous duplex B/L pending. Pt has smoked 1ppd for the past 20 years. Denies alcohol or illicit drug use. Denies personal h/o TX, HF, bleeding disorder. His father had ministrokes and a heart attack. His mother had a stroke. He was found to be hyperglycemic at 525 and hypertensive up to 212/100. Pt admits to not being compliant with his medication. BP now improved on Bumex, Coreg, terazosin and s/p 20 mg IV labetalol. Attending note: Patient has low troponin rise but consistent with ACS, and MARIA LUISA risk 5-7 consistent with high risk presentation. Risk benefits alternatives of been discussed with patient including informed decision-making process for 30 minutes this morning. We will proceed with cardiac catheterization possible revascularization. Review of Systems Review of Systems All other systems reviewed & are negative unless noted below or in HPI Constitutional Constitutional: Reports as per HPI ENT Ears, Nose, Mouth, and Throat: Reports system reviewed and no additional complaints, except as documented Cardiovascular Cardiovascular: Reports as per HPI and Reports chest pain at rest Respiratory Respiratory: Reports system reviewed and no additional complaints, except as documented Gastrointestinal Gastrointestinal: Reports system reviewed and no additional complaints, except as documented Musculoskeletal Musculoskeletal: Reports as per HPI Neurologic Neurologic: Reports as per HPI PMFSH Vaccinated for COVID-19?: No Medical History (Updated 01/11/22 @ 11:55 by Kathy Chanel) Anxiety and depression Apnea Asthma Autonomic dysfunction BPH (benign prostatic hyperplasia) CKD (chronic kidney disease) stage 3, GFR 30-59 ml/min CVA (cerebral vascular accident) Diabetes mellitus, type 2 Diabetic neuropathy Generalized headaches Hypertension Hypertensive emergency Hypothyroid PRAVEENA on CPAP PAD (peripheral artery disease) Parkinson disease Pulmonary sarcoidosis Right hemiplegia Seizure disorder Seizures Tobacco abuse Surgical History S/P percutaneous transluminal angioplasty ([employer]) Family History Other Diabetes mellitus, type 2 Hypertension Stroke Social History Smoking Status: Current every day smoker Tobacco Type: cigarettes Substance Use Type: None Meds Medications and Allergies Allergies promethazine [From Phenergan] Allergy (Verified 12/19/19 02:18) Unknown Reaction Home Medications acetaminophen 500 mg tablet 500 mg PO Q4H PRN #100 tab 08/14/21 [Rx Confirmed 01/10/22] ascorbic acid (vitamin C) 500 mg tablet (Vitamin C) 500 mg PO DAILY #30 tab 08/14/21 [Rx Confirmed 01/10/22] aspirin 81 mg chewable tablet (Children's Aspirin) 81 mg PO DAILY #30 tab 08/14/21 [Rx Confirmed 01/10/22] atorvastatin 40 mg tablet 40 mg PO QPM #30 tab 08/14/21 [Rx Confirmed 01/10/22] bumetanide 1 mg tablet 1 mg PO BID@0800,1600 #30 tab 11/01/21 [Rx Confirmed 01/10/22] carvedilol 12.5 mg tablet 12.5 mg PO BID.WITH.MEALS tab 08/14/21 [Rx Confirmed 01/10/22] citalopram 20 mg tablet 20 mg PO QAM #30 tab 08/14/21 [Rx Confirmed 01/10/22] clopidogrel 75 mg tablet 75 mg PO DAILY #30 tab 08/14/21 [Rx Confirmed 01/10/22] cyclobenzaprine 5 mg tablet 5 mg PO Q8H PRN #60 tab 08/14/21 [Rx Confirmed 01/10/22] insulin aspart U-100 100 unit/mL (3 mL) subcutaneous pen (Novolog Flexpen U-100 Insulin aspart) 0 units (0 mL) SUBCUT ACHS #10 ml 08/14/21 [Rx Confirmed 01/10/22] insulin aspart U-100 100 unit/mL (3 mL) subcutaneous pen (Novolog Flexpen U-100 Insulin aspart) 10 units (0.1 mL) SUBCUT TID.AC #10 ml 08/14/21 [Rx Confirmed 01/10/22] insulin detemir U-100 100 unit/mL (3 mL) subcutaneous pen (Levemir FlexTouch U- 100 Insulin) 48 unit (0.48 mL) SUBCUT BID #10 ml 08/14/21 [Rx Confirmed 01/10/22] levothyroxine 25 mcg tablet 25 mcg PO DAILY.0630 #30 tab 08/14/21 [Rx Confirmed 01/10/22] nitroglycerin 0.1 mg/hr transdermal 24 hour patch 1 ea TRANSDERMAL DAILY.6A #30 ea 08/14/21 [Rx Confirmed 01/10/22] omeprazole 20 mg capsule,delayed release 20 mg PO DAILY #30 cap 08/14/21 [Rx Confirmed 01/10/22] potassium chloride 20 mEq tablet,extended release(part/cryst) (Klor-Con M) 20 meq PO DAILY #15 tab 08/14/21 [Rx Confirmed 01/10/22] ropinirole 2 mg tablet 2 mg PO TID #45 tab 08/14/21 [Rx Confirmed 01/10/22] sennosides 8.6 mg tablet (Senna Lax) 17.2 mg PO QHS #60 tab 08/14/21 [Rx Confirmed 01/10/22] terazosin 2 mg capsule 2 mg PO DAILY #30 cap 08/14/21 [Rx Confirmed 01/10/22] trazodone 50 mg tablet 50 mg PO QHS #30 tab 08/14/21 [Rx Confirmed 01/10/22] melatonin 10 mg tablet 20 mg PO HS PRN 01/10/22 [History Confirmed 01/10/22] Exam Physical Exam Vital Signs: Temp Pulse Resp BP Pulse Ox 97.9 F 82 18 110/71 97 01/11/22 11:13 01/11/22 11:13 01/11/22 11:13 01/11/22 11:13 01/11/22 11:13 Narrative: - General: Pt is alert and oriented. Resting comfortably in bed. In NAD. Wearingnasal cannula. - Chest: Tenderness to palpation along sternum. - CV: RRR without murmurs, rubs or gallops. - Resp: CTAB without wheezes, rhonchi or crackles. - Abd: Obese. Nontender and nondistended. - Extrem: +2/4 radial pulses bilaterally. Well-healed right BKA with scab anterolaterally. +1 pitting edema of LLE without erythema or warmth, difficulty palpating posterior tibial pulse. Const General: cooperative, comfortable and no acute distress Nutritional Appearance: obese Orientation: alert, awake and oriented x3 Resp Effort & Inspection: normal respiratory effort Auscultation: clear to auscultation bilaterally Cardio Palpation: normal PMI Rate: regular rate Rhythm: regular rhythm Heart Sounds: S1 normal, S2 normal and no murmurs MARIA LUISA Risk Score MARIA LUISA Risk Score Predictor Historical: 3 or more Risk Factors: FHx,HTN,elevated cholesterol,DM,active smoker Presentation: Increased Cardiac Marker Score Risk Score (0-7): 2 Results Labs CBC & CMP: 01/11/22 05:10 01/11/22 05:10 Lab results: Cardiac Enzymes 01/10/22 01/11/22 Range/Units 15:00 05:10 AST 10 (10-42) U/L B-Natriuretic Peptide 252.0 H (5-100) pg/mL Lipids 01/11/22 Range/Units 05:10 Triglycerides 191 H (35-149) mg/dL Cholesterol 182 (140-200) mg/dL HDL Cholesterol 30 (29-71) mg/dL Cholesterol/HDL Ratio 6.1 (<5.0) CBC 01/10/22 01/11/22 Range/Units 15:00 05:10 RBC 3.86 L 3.44 L (3.90-5.60) x10E6/uL Hgb 12.0 L 10.6 L (13.0-17.0) g/dL Hct 35.2 L 31.1 L (38.8-50.0) % Plt Count 197 172 (150-450) x10E3/uL Neut # (Auto) 7.6 5.3 (1.8-7.7) x10E3/uL Lymph # (Auto) 1.2 1.3 (1.00-4.8) x10E3/uL [place] # (Auto) 0.5 0.6 (0.0-0.8) x10E3/uL Eos # (Auto) 0.4 0.4 (0.0-0.45) x10E3/uL Baso # (Auto) 0.1 0.0 (0.0-0.2) x10E3/uL Comprehensive Metabolic Panel 01/10/22 01/11/22 Range/Units 15:00 05:10 Sodium 126 L 135 L D (136-146) mmol/L Potassium 4.6 3.8 (3.5-5.1) mmol/L Chloride 94 L 102 (95-114) mmol/L Carbon Dioxide 22.7 23.5 (22.0-30.0) mmol/L BUN 17 26 H (9-23) mg/dL Creatinine 1.30 H 1.46 H (0.64-1.27) mg/dL Glucose 525 H* 314 H D (70-100) mg/dL Calcium 8.3 8.5 (8.2-10.2) mg/dL AST 10 (10-42) U/L ALT 10 (10-60) U/L Alkaline Phosphatase 110 H (32-92) U/L Total Protein 5.1 L (6.1-7.9) gm/dL Albumin 2.7 L (3.2-5.5) gm/dL Intake and Output 01/10/22 01/11/22 01/11/22 23:59 07:59 15:59 Intake Total 1100 / 1100 50 / 50 Output Total 750 / 750 450 / 450 Balance 350 / 350 -400 / -400 Intake: IV 1000 / 1000 Sodium Chloride 0.9% 1,000 ml 1 1000 / 1000 ,000 ml @ 999 mls/hr IV .Q1H1M ONE Rx#:[id number] Oral 100 / 100 50 / 50 Output: Urine 750 / 750 450 / 450 Other: # Bowel Movements 0 0 Weight 104.4 kg 104.2 kg Date of Last Bowel Movement 01/07/22 01/07/22 01/07/22 Patient Weight 01/11/22 23:59 Weight 104.2 kg Lab 01/11/22 05:10 PT 10.1 INR 0.9 APTT 27.5 A&P - Cardiology (1) Chest pain: Assessment/Problem Details: Pt with typical chest pain, mildly elevated troponin and numerous cardiac risk factors. Plan: - Plan to proceed with cardiac catheterization today. - Aspirin, statin, Plavix. - Nitro PRN. - Telemetry. Code(s): R07.9 - Chest pain, unspecified Documented By: Leann Sarmiento DO 01/11/22 1133 Signed By: <Electronically signed by Leann Sarmiento DO> 01/11/22 1430 [facility] Work Phone: [phone]) 482-350803-31-2022 Procedure [facility]03-31-2022 Procedure [facility]03-31-2022 History and physical note Author Jonn Wallace [facility] January 11, 2022 11:49am Note Date/Time January 11, 2022 11: 49am [facility] [address] [place] [address] Hospitalist H&P Signed Patient: Chandler Minor MR#: [id number] : 1970 Acct:[id number] Age/Sex: 51 / M Adm Date: 2 Loc: Room: [address] [place] [address] Type : ADM IN Attending Dr: Jonn Wallace MD Copies to: DO Jonn Zuniga MD~ HPI DATE OF EXAMINATION: 01/10/22 CHIEF COMPLAINT: Chest pain HISTORY OF PRESENT ILLNESS: Patient is a 51-year-old male with past medical history of hypertension, uncontrolled diabetes mellitus, right BKA, PAD, CVA with minimal residual weakness, PAD, COPD, tobacco abuse, hyperlipidemia, diabetic neuropathy, hypothyroidism, BPH, GERD. Presented to the ER today complaining of chest pain. Patient states that this chest pain has been going on for 4 days however today it has become more severe and therefore decided to come to the ED. This chest pain is central, was gradual in onset, does not radiate, is heavinessin nature, associated with some palpitations, no exacerbating factors was minimally alleviated with nitro pack, patient states that pain is 8 out of 10. He also states that his symptoms are associated with headache and blurry vision.He denies any diaphoresis, no syncope, no upper or lower limb weakness, no facial droop, no difficulty speaking, no dizziness, no difficulty walking, no symptoms like he felt in his previous stroke. At presentation patient's blood pressure was 205/102. Patient denies any abdominal pain, no nausea/vomiting, no change in bowel habits, no respiratory symptoms, no cough, no shortness of breath, no sputum production, no flank pain, no dysuria, polyuria, or hematuria. Patient states that he has been taking his antihypertensive medications on and off, and recently he was only given half of them. Patient is a smoker and states that he has smoked 1 pack a day for approximately 20 years. He also states that he has not been taking care of his diabetes and diabetic medicationsas he should. In the ED patient's blood pressure is 192/100, monitor showing sinus rhythm withno acute ST or T wave changes, hemoglobin is 12, wbc is 9.8, sodium 126, creatinine 1.3, glucose elevated at 525, troponin elevated at 43, and BNP elevated at 252, hydroxybutyrate is normal at 0.17. Head CT showed no acute intracranial pathologies, Chest x-ray shows no acute process with nonspecific mild and stable interstitial prominence. Patient admitted for treatment of hypertensive emergency, and further evaluation. Review of Systems Review of Systems All other systems reviewed & are negative unless noted below or in HPI PMFSH Vaccinated for COVID-19?: No Medical History (Updated 01/10/22 @ 19:00 by Kathy Chanel) Anxiety and depression Apnea Asthma Autonomic dysfunction BPH (benign prostatic hyperplasia) CKD (chronic kidney disease) stage 3, GFR 30-59 ml/min CVA (cerebral vascular accident) Diabetes mellitus, type 2 Diabetic neuropathy Generalized headaches Hypertension Hypertensive emergency Hypothyroid PRAVEENA on CPAP PAD (peripheral artery disease) Parkinson disease Pulmonary sarcoidosis Right hemiplegia Seizure disorder Seizures Tobacco abuse Surgical History S/P percutaneous transluminal angioplasty ([employer]) Family History Other Diabetes mellitus, type 2 Hypertension Stroke Social History Smoking Status: Current every day smoker Tobacco Type: cigarettes Substance Use Type: None Meds Medications and Allergies Allergies promethazine [From Phenergan] Allergy (Verified 12/19/19 02:18) Unknown Reaction Home Medications acetaminophen 500 mg tablet 500 mg PO Q4H PRN #100 tab 08/14/21 [Rx Confirmed 01/10/22] ascorbic acid (vitamin C) 500 mg tablet (Vitamin C) 500 mg PO DAILY #30 tab 08/14/21 [Rx Confirmed 01/10/22] aspirin 81 mg chewable tablet (Children's Aspirin) 81 mg PO DAILY #30 tab 08/14/21 [Rx Confirmed 01/10/22] atorvastatin 40 mg tablet 40 mg PO QPM #30 tab 08/14/21 [Rx Confirmed 01/10/22] bumetanide 1 mg tablet 1 mg PO BID@0800,1600 #30 tab 08/14/21 [Rx Confirmed 01/10/22] carvedilol 12.5 mg tablet 12.5 mg PO BID.WITH.MEALS tab 08/14/21 [Rx Confirmed 01/10/22] citalopram 20 mg tablet 20 mg PO QAM #30 tab 08/14/21 [Rx Confirmed 01/10/22] clopidogrel 75 mg tablet 75 mg PO DAILY #30 tab 08/14/21 [Rx Confirmed 01/10/22] cyclobenzaprine 5 mg tablet 5 mg PO Q8H PRN #60 tab 08/14/21 [Rx Confirmed 01/10/22] insulin aspart U-100 100 unit/mL (3 mL) subcutaneous pen (Novolog Flexpen U-100 Insulin aspart) 0 units (0 mL) SUBCUT ACHS #10 ml 08/14/21 [Rx Confirmed 01/10/22] insulin aspart U-100 100 unit/mL (3 mL) subcutaneous pen (Novolog Flexpen U-100 Insulin aspart) 10 units (0.1 mL) SUBCUT TID.AC #10 ml 11/01/21 [Rx Confirmed 01/10/22] insulin detemir U-100 100 unit/mL (3 mL) subcutaneous pen (Levemir FlexTouch U- 100 Insulin) 48 unit (0.48 mL) SUBCUT BID #10 ml 08/14/21 [Rx Confirmed 01/10/22] levothyroxine 25 mcg tablet 25 mcg PO DAILY.0630 #30 tab 08/14/21 [Rx Confirmed 01/10/22] nitroglycerin 0.1 mg/hr transdermal 24 hour patch 1 ea TRANSDERMAL DAILY.6A #30 ea 08/14/21 [Rx Confirmed 01/10/22] omeprazole 20 mg capsule,delayed release 20 mg PO DAILY #30 cap 08/14/21 [Rx Confirmed 01/10/22] potassium chloride 20 mEq tablet,extended release(part/cryst) (Klor-Con M) 20 meq PO DAILY #15 tab 08/14/21 [Rx Confirmed 01/10/22] ropinirole 2 mg tablet 2 mg PO TID #45 tab 08/14/21 [Rx Confirmed 01/10/22] sennosides 8.6 mg tablet (Senna Lax) 17.2 mg PO QHS #60 tab 08/14/21 [Rx Confirmed 01/10/22] terazosin 2 mg capsule 2 mg PO DAILY #30 cap 08/14/21 [Rx Confirmed 01/10/22] trazodone 50 mg tablet 50 mg PO QHS #30 tab 08/14/21 [Rx Confirmed 01/10/22] melatonin 10 mg tablet 20 mg PO HS PRN 01/10/22 [History Confirmed 01/10/22] Exam Physical Exam Vital Signs: Temp Pulse Resp BP Pulse Ox 97.8 F 95 H 16 192/100 H 96 01/10/22 13:34 01/10/22 18:00 01/10/22 18:00 01/10/22 18:00 01/10/22 18:00 Narrative: Patient is conscious alert oriented to time place and person lying comfortably in his bed, not in pain, not in respiratory distress Head: Normocephalic, nontraumatic, appears grossly normal Eyes: Grossly normal Mouth: Moist mucous membranes, no gross abnormality Neck: Supple, no masses, no JVD, no lymphadenopathy Cardiovascular: Normal S1, normal S2, no added sounds, no murmurs, slightly tachycardic Respiratory: Decreased air entry bilaterally more profound towards the bases, noadded sounds, no wheezes/crackles/rhonchi Abdomen: Abdomen is obese, distended, soft to palpation, no tenderness to superficial or deep palpation, normoactive bowel sounds, no rigidity, no reboundtenderness, no acute peritoneal signs Lower limbs: Evidence of right BKA, appears normal with good femoral and popliteal pulse, left leg is cold in comparison to the right leg, is edematous with +2 edema, and is tender to palpation, pulses were difficult to palpate, however patient had good posterior tibial and dorsalis pedis Doppler signal, good capillary refill. Neurological: Pupils are equal and reactive to light, no RAPD, cranial nerve exam of 3, 4, 6 and 7 are intact, power is 5/5 in both upper and lower limbs, however patient is weaker on the right side than the left. Psychiatric: Patient has a depressed affect and was tearing up during the encounter. Results Lab Results Labs: Laboratory Last Values Corrected WBC 9.8 X10E3/uL (4.1-10.5) 01/10/22 15:00 Uncorrected WBC Count 9.8 x10E3/uL (4.5-11.0) 01/10/22 15:00 RBC 3.86 x10E6/uL (3.90-5.60) L 01/10/22 15:00 Hgb 12.0 g/dL (13.0-17.0) L 01/10/22 15:00 Hct 35.2 % (38.8-50.0) L 01/10/22 15:00 MCV 91.2 fl (83.5-101) 01/10/22 15:00 MCH 31.1 pg (27.5-35.2) 01/10/22 15:00 MCHC 34.1 g/dL (32.5-35.6) 01/10/22 15:00 RDW 14.0 % (12.0-14.8) 01/10/22 15:00 Plt Count 197 x10E3/uL (150-450) 01/10/22 15:00 MPV 9.8 fl (6.6-10.1) 01/10/22 15:00 Neut % (Auto) 77.5 % (.) 01/10/22 15:00 Lymph % (Auto) 12.3 % (.) 01/10/22 15:00 [place] % (Auto) 4.8 % (.) 01/10/22 15:00 Eos % (Auto) 4.2 % (.) 01/10/22 15:00 Baso % (Auto) 1.2 % (.) 01/10/22 15:00 Neut # (Auto) 7.6 x10E3/uL (1.8-7.7) 01/10/22 15:00 Lymph # (Auto) 1.2 x10E3/uL (1.00-4.8) 01/10/22 15:00 [place] # (Auto) 0.5 x10E3/uL (0.0-0.8) 01/10/22 15:00 Eos # (Auto) 0.4 x10E3/uL (0.0-0.45) 01/10/22 15:00 Baso # (Auto) 0.1 x10E3/uL (0.0-0.2) 01/10/22 15:00 Nucleated RBC % (auto) 0.0 % (0-0.5) 01/10/22 15:00 PHA Creatinine Clear 76.93 01/10/22 15:00 Sodium 126 mmol/L (136-146) L 01/10/22 15:00 Potassium 4.6 mmol/L (3.5-5.1) 01/10/22 15:00 Chloride 94 mmol/L (95-114) L 01/10/22 15:00 Carbon Dioxide 22.7 mmol/L (22.0-30.0) 01/10/22 15:00 BUN 17 mg/dL (9-23) 01/10/22 15:00 Creatinine 1.30 mg/dL (0.64-1.27) H 01/10/22 15:00 Est GFR ( Amer) > 60 mL/Min 01/10/22 15:00 Est GFR (Non-Af Amer) 58 mL/Min 01/10/22 15:00 Glucose 525 mg/dL (70-100) H* 01/10/22 15:00 Calcium 8.3 mg/dL (8.2-10.2) 01/10/22 15:00 Troponin I High Sens 43 pg/mL (0-20) H 01/10/22 15:00 B-Natriuretic Peptide 252.0 pg/mL (5-100) H 01/10/22 15:00 B-Hydroxybutyrate 0.17 mmol/L (0.05-0.27) 01/10/22 15:00 COVID-19 PCR Interp N/A 01/10/22 17:10 SARS Antigen (LFIA) Negative (Negative) 01/10/22 16:38 Microbiology Results Micro: Microbiology - Results from entire visit 01/10/22 16:38 Nasal SARS Antigen (LFIA) - Final A&P - Hospitalist Assessment/Plan (1) Hx of right BKA: (2) Chest pain: (3) Tobacco abuse: (4) Diabetes mellitus: Plan Patient is a 51-year-old male with past medical history of hypertension, uncontrolled diabetes mellitus status post right BKA, PAD, CVA with minimal residual weakness, PAD, COPD, tobacco abuse, presented to the ER today complaining of typical cardiac chest pain. Patient was found to have a blood pressure of 205/102 indicating hypertensive emergency, admitted for hypertensiontreatment and further evaluation. Hypertensive emergency: Patient has elevated blood pressure 212/100 with chest pain indicating a hypertensive emergency Continuous telemetry Trend troponin EKG in the a.m. Continue home medications for hypertension, Bumex and carvedilol IV labetalol every 4 hours as needed Continue aspirin and Plavix D-dimer level ordered Leg ultrasound to rule out DVT Cardiology consult N.p.o. after midnight if cath is required Check TSH Hyperglycemia/uncontrolled type 2 diabetes mellitus: Detemir twice daily 50 units Aspart 10 units 3 times daily with #3 insulin sliding scale New A1c as most recent is in June showing HbA1c 15.7 Continue to monitor glucose readings Continue to treat chronic medical conditions as per home medications DVT prophylaxis with subcutaneous heparin CODE STATUS: Full code Attending attestation: Patient was personally seen by me on the day of encounter. I reviewed his history and performed mccoy elements of exam and formulated the plan of care and confirmed the medical student's note above. Documented By: Jonn Wallace MD 2 [id number] Signed By: <Electronically signed by Jonn Wallace MD> 01/11/22 84[address] [facility] Work Phone: [phone] Evaluation note* Encounter Date Diagnosis Assessment Notes Treatment Notes Treatment Clinical Notes Dec, Phantom pain after amputation of lower extremity (ICD-10 - G54.6) Dec, Muscle spasm (ICD-10 - M62.838) Dec, Right below-knee amputee (ICD-10 - Z89.511) Proceed with prosthesis as ordered Referral to [facility] Discussed diligent skin monitoring for breakdown given history of revision due to postop complications at operative site. Needs emergent attention should redness/ulcer develop. [place] Other 11-16-2021 Evaluation note* Encounter Date Diagnosis Assessment Notes Treatment Notes Treatment Clinical Notes Aug, Contact with and (suspected) exposure to other viral communicable diseases (ICD-10 - Z20.828) Aug, COVID-19 (ICD-10 - U07.1) Rapid COVID test performed in office today. Advised patient that test was positive. Instructed patient to isolate per CDC guidelines for 10 days from symptom onset. May return to work/activities outside home after isolation period as long as symptoms are improving and has been afebrile for 24 hours without use of antipyretic. Advised patient that health dept. will be in contact as results are reported to them. Advised patient that treatment of COVID is with viral supportive care, OTC cold medications such as Cordicidin HBP, Tylenol/Motrin as needed for body aches/fever. Increase fluids and rest. Encouraged use of cool mist humidifier. Follow-up with PCP to advise of positive result and further management need. Immediate eval for SOB, difficulty, chest pain, fevers that do not break with antipyretic or any other concerning symptoms as reviewed on patient education handout. Patient verbalizes understanding and is agreeable to treatment plan. Patient left in stable condition Aug, Other Additional time spent conducting pre-visit phone call, screening for symptoms, instructions on social distancing, application and removal of PPE, and cleaning of examination room, equipment and supplies was preformed. Patient education given for testing methodology and results. Patient care instructions given in writting by CDC Care At Home document [place] Other 11-01-2021 History general Narrative - Reported* Type Description Date Medical History diabetes mellitus Type 2 Medical History Hypertension Medical History sarcoidosis Medical History migraine headaches Medical History CVA Medical History Hx of Covid 19 (08/2021) Surgical History biopsy Surgical History Right Below knee amputation Surgical History revision to below the knee ampu tation Surgical History Cardiac cath 01/11/2022 Hospitalization History see above Hospitalization History Hypertensive emergency, chest pain 01/10/2022 [place] Other 11-01-2021 History general Narrative - Reported* Type Description Date Medical History diabetes mellitus Type 2 Medical History Hypertension Medical History sarcoidosis Medical History migraine headaches Medical History CVA Medical History Hx of Covid 19 (08/2021) Medical History CELLULITIS Medical History HEART FAILURE Surgical History biopsy Surgical History Right Below knee amputation Surgical History revision to below the knee ampu tation Surgical History Cardiac cath 01/11/2022 Hospitalization History see above Hospitalization History Hypertensive emergency, chest pain 01/10/2022 Hospitalization History CHF, CELLULTIS, [place] Other 10-07-2021 Evaluation note* Encounter Date Diagnosis Assessment Notes Treatment Notes Treatment Clinical Notes Jul, Type 2 diabetes mellitus with hyperglycemia (ICD-10 - E11.65) Pt was advised d/t elevated glucose he must report to emergency room for treatment. Was not seen by provider Jul, Dietary counseling and surveillance (ICD-10 - Z71.3) see above Jul, Hyperlipidemia (ICD-10 - E78.5) Jul, HTN (hypertension) (ICD-10 - I10) Jul, shelter current us e of insulin (ICD-10 - Z79.4) [place] Other 09-27-2021 Evaluation note* Encounter Date Diagnosis Assessment Notes Treatment Notes Treatment Clinical Notes Jun, Status post CVA (ICD-10 - Z86.73) 50 y/o male here for follow up. He was last seen 1 year ago. He had below the knee amputation on the right since his last office visit. He continues to complain of right upper extremity weakness from his prior CVA. He also complains of persistent jerky movements of the right upper extremity. He feels a numbness in both hands. He should continue to see neurology for his post stroke symptoms. He is encouraged to follow up with Dr. Pedroza for consideration of prosthetic. Jun, Amputation of right lower extremity (ICD-10 - S88.911A) Continue to follow with wound clinic. Once healed and clear of infection we can consider him for a prosthetic. [place] Other Evaluation noteNo assessment information available [facility] Work Phone: Evaluation note* Diagnosis Onset Date Resolution Status Chest pain acute Hx of right BKA acute Hypertensive emergency acute Diabetes mellitus chronic Tobacco abuse chronic [facility] Work Phone: Evaluation note* Diagnosis Proliferative diabetic retinopathy of both eyes associated with type 2 diabetes mellitus, unspecified proliferative retinopathy type (HCC)- Primary [facility] Other Evaluation note* Diagnosis Disability examination- Primary Issue of medical certificate for disability examination 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, unspecified whether moth exterminator insulin use (HCC) Type 2 diabetes mellitus with proliferative diabetic retinopathy of left eye without macular edema, unspecified whether assisted insulin use (HCC) Myopia, bilateral Myopia Regular astigmatism, bilateral Presbyopia [facility] Proliferative diabetic retinopathy of both eyes associated with type 2 diabetes mellitus, unspecified proliferative retinopathy type (HCC)- Primary [facility] Diagnosis Proliferative diabetic retinopathy of both eyes associated with type 2 diabetes mellitus, unspecified proliferative retinopathy type (HCC)- Primary [facility]* Diagnosis Diabetes mellitus with insulin therapy (HCC)- Primary 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 to underlying condition (HCC) Acute viral conjunctivitis of both eyes [facility]* Diagnosis Diabetes mellitus with insulin therapy (HCC)- Primary 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 to underlying condition (HCC) Acute viral conjunctivitis of both eyes [facility]* Diagnosis Onset Date Resolution Status FRANK (acute kidney injury) ac jodi Dehydration acute CKD (chronic kidney disease) stage 3, GFR 30-59 ml/min chronic Diabetes mellitus chronic Hypertension [facility] Work Phone: Evaluation note* Diagnosis Proliferative diabetic retinopathy of both eyes associated with type 2 diabetes mellitus, unspecified proliferative retinopathy type (HCC)- Primary [facility] Diagnosis Onset Date Resolution Status BPH (benign prostatic hyperplasia) chronic CKD (chronic kidney disease), stage IV chronic CVA (cerebral vascular accident) chronic Diabetes chronic Hypertension chronic Hypothyroid chronic Altered mental state resolve d Hypoglycemia resolved Hypothermia resolved Leukocytosis resolved [facility] Work Phone: Evaluation note* Diagnosis Proliferative diabetic retinopathy of both eyes associated with type 2 diabetes mellitus, unspecified proliferative retinopathy type (HCC)- Primary [facility] - Reported* Type Description Date Medical History diabetes mellitus Type 2 Medical History Hypertension Medical History sarcoidosis Medical History migraine headaches Medical History CVA Surgical History biopsy Surgical History Below knee amputation Hospitalization History see above [place] Other Hospital Discharge [facility] Work Phone: Summary Purpose Family History No Family History Records Found Relationship Condition Age at Onset Recorded Date/T carole Not Specified Type 2 diabetes mellitus Unknown Hypertension Unknown Cerebrovascular accident (CVA) Unknown Unknown Family Member Name Dates Details Family history of cerebrovas cular accident (CVA): Mother, Father(V17.1, Z82.3) Status:Active Family history of hypertensi on: Mother, Father(V17.49, Z82.49) Status:Active Family history of diabetes m ellitus: Mother, Father, Brother(V18.0, Z83.3) Status:Active Unknown Family Member Name Dates Details Family history of cerebrovas cular accident (CVA): Mother, Father(V17.1, Z82.3) Status:Active Family history of hypertensi on: Mother, Father(V17.49, Z82.49) Status:Active Family history of diabetes m ellitus: Mother, Father, Brother(V18.0, Z83.3) Status:Active Unknown Family Member Name Dates Details Family history of cerebrovas cular accident (CVA): Mother, Father(V17.1, Z82.3) Status:Active Family history of hypertensi on: Mother, Father(V17.49, Z82.49) Status:Active Family history of diabetes m ellitus: Mother, Father, Brother(V18.0, Z83.3) Status:Active Relationship Condition Age at Onset Recorded Date/T carole Not Specified Family history non-contributory Unknown Advance Directives No Advanced Directives Records FoundLatest Code Status on File Code Status Date Activated Date Inactivated Comments Full Code 12/28/2020 11:05 AM Latest Code Status on File Code Status Date Activated Date Inactivated Comments Full Code 12/28/2020 7:56 PM Full Code 12/28/2020 7:56 PM 12/28/2020 7:56 PM Full Code 12/28/2020 11:05 AM 12/28/2020 11:39 AM Healthcare Agents on File Name Relationship Healthcare Agent Relationshi p Communication Suzan Minor Parent Supplemental (Other) Pratibhais ion Maker Tiffanie Minor Child Secondary Decision Maker Leeanna Minor Spouse Primary Decision Maker Advance Directive Response Recorded Date/ Time Advance Directives No May 23, 2018 3:22pm Advance Directive Response Recorded Date/ Time Advance Directives No August 02, 2023 4:29am Advance Directive Response Recorded Date/ Time Advance Directives No August 02, 2023 3:36pm Reason for Referral Status Reason Specialty Diagnoses / Procedures Referre d By Contact Referred To Contact Closed Radiology Diagnoses Atherosclerosis 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 (HCC) Procedures CTA ABDOMINAL AORT[place] [id number] [place] [address] Specialty Diagnoses / Procedures Referred By Contac t Referred To Contact Infusion Services Diagnoses Proliferative diabetic retinopathy of both eyes associated with type 2 diabetes mellitus, unspecified proliferative retinopathy type (HCC) Demetri Frank MD [address] [place] [address] [address] [employer] [address] [place] [address] Referral ID Status Reason Start Date Expiration Date V isits Requested Visits Authorized [id number] Pending Review 03/21/2022 03/21/2023 14 14 Question Answer Is this a new start of treatment? Yes Comments Medication(s) Aflibercept (Eylea) IV [id number] Dose: 2 mg Route: OU Frequency (Interval): monthly Duration: 1 year Clinical Information Diagnosis: (E11.3593) Proliferative diabetic retinopathy of both eyes associated with type 2 diabetes mellitus, unspecified proliferative retinopathy type (HCC) (primary encounter diagnosis) Plan: OCT, RETINA - OU - BOTH EYES Prior Medication(s) (REQUIRED): avastin Other Clinical Information/Comments: Date of Test: No records found for TST-PPD, intradermal (PPD) (CVX=96) Assessments Diagnosis Atherosclerosis 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 (HCC) Atherosclerosis of [place] arteries of the extremities with gangrene Diagnosis Peripheral vascular occlusive disease (HCC)- Primary Peripheral vascular disease, unspecified Renal insufficiency Unspecified disorder of kidney and ureter Vascular occlusion Unspecified circulatory system disorder History of Present Illness * Steve Rios, RN - 12/28/2020 11:27 AM EDT Patient arrived via wheel chair with walking boot in place. Transferred from chair to bed without difficulty z2 person assist. While going over procedural consent, another RN answered a phone call from Juli at Dr. Friend's office instructed us to have the patient go to ED d/t problem related to insurance. Patient taken to ED via wheel chair, and he was understanding to the fact that this was discussed with him as a possibility prior to arriving today. documented in this encounter* Tasha Parkinson RD, LD - 12/29/2020 1:24 PM EDT Comprehensive Nutrition Assessment Type and Reason for Visit: Initial, Positive Nutrition Screen, Wound Nutrition Recommendations/Plan: Diet was changed from Cardiac to Cab Control 5 Begin Wound healing supplement B & D Counsled on improtance of adequate nutritional heallth for recovery and disease management, with emphasis on nutrient rich food choices , appropriate supplement use and glycemic control to suppoort wound healing Nutrition Assessment: Nutritional status appears adequate upon admission, Pt denies any recent change in appetite or intake. Reports weight gain of unknown quantity due to immobility, recent toe amputation. Diet was changed to Carb Control 5, as glucose has been > 200. Pt agreeable to try wound healing ONS Malnutrition Assessment: Malnutrition Status: No malnutrition Context: Chronic Illness Findings of the 6 clinical characteristics of malnutrition: Energy Intake: No significant decrease in energy intake Weight Loss: No significant weight loss Body Fat Loss: No significant body fat loss Muscle Mass Loss: No significant muscle mass loss Fluid Accumulation: No significant fluid accumulation Physical Therapist Technician Strength: Not Performed Estimated Daily Nutrient Needs: Energy (kcal): 4009-8455 kcals @ 13-15 kcal/kg; Weight Used for Energy Requirements: Admission(133 kg) Protein (g): 84-97 g protein @ 1.3-1.5 g/kg IBW; Weight Used for Protein Requirements: Upperglade(65 kg) Fluid (ml/day): ~1950 @ 30 ml/kg iBW; Method Used for Fluid Requirements: ml/Kg(65 kg) Nutrition Related Findings: 50 y.o. male with PMH significant for DM type II with retinopathy and CKD, CVA, osteomyelitis, CAD, HTN, asthma, PVD, GERD, PRAVEENA, depression, HPL, nicotine dependence for who podiatry was consulted for nonhealing wound to right TMA site, right heel, glcu > 200, 1+ BLE edema Wounds: Surgical Incision(see wound care flowsheet; may need BKA) Current Nutrition Therapies: DIET CARB CONTROL; Carb Control: 5 carb choices (75 gms)/meal Anthropometric Measures: Height: 5' 6 (167.6 cm) Current Body Weight: (UTD, sitting bedside) Admission Body Weight: 294 lb (133.4 kg)(stated) Usual Body Weight: 214 lb (97.1 kg)((2019); 236# ( 11/03)) Upperglade Body Weight: 142 lbs; BMI: 47 BMI Categories: Obese Class 3 (BMI 40.0 or greater) Nutrition Diagnosis: Increased nutrient needs related to increase demand for energy/nutrients as evidenced by wounds Nutrition Interventions: Food and/or Nutrient Delivery: Modify Current Diet, Start Oral Nutrition Supplement Nutrition Education/Counseling: Education declined Coordination of Nutrition Care: Continue to monitor while inpatient Goals: po > 75% meals and supplements, gluc < 180 Nutrition Monitoring and Evaluation: Food/Nutrient Intake Outcomes: Food and Nutrient Intake, Supplement Intake Physical Signs/Symptoms Outcomes: Weight, Skin, Meal Time Behavior, Biochemical Data Discharge Planning: Continue Oral Nutrition Supplement * Pamela Wong RN - 12/29/2020 10:00 AM EDT Wound Ostomy Continence Nursing This [facility] Nurse asked by Dr. Galarza and nursing for dressing change. Podiatry is consulted, but wound is currently undressed and there are not dressing change orders. Wound Evaluated, LDA create and measurements obtained & documented. Also noted to be a healed, full-thickness wound to the right heel - painted with betadine. Betadine Moistened gauze placed in wound bed - Podiatry resident came in room at this time for wound evaluation. No other needs from this [facility] Nurse at this time. documented in this encounter Hospital Course * Kaiser Galarza MD - 12/29/2020 11:11 AM EDT Hospital Medicine Discharge Summary Chandler Minor : 1970 Admit date: 12/28/2020 Discharge date: 12/29/2020 Admitting Physician: Kaiser Galarza MD Primary Care Physician: Fadi Tenorio, Sr, DO Discharge Diagnoses: Right superficial femoral artery and popliteal artery stenosis Chief Complaint Patient presents with Other sent from cardiac, needs to be admitted, vascular issue rle Hospital Course: Patient was admitted at the request of vascular surgery for a right superficial femoral artery and popliteal atherectomy with stenting. Patient tolerated the procedure well and plan is to discharge back to SNF to continue his therapy and IV Abx for OM that he was receiving at the SNF prior to admission. Exam on discharge: BP (!) 155/79 Pulse 85 Temp 98.1 F (36.7 C) (Oral) Resp 18 Ht 5' 6 (1.676 m) Wt 294 lb (133.4 kg) SpO2 100% BMI 47.45 kg/m General appearance: No apparent distress, appears stated age and cooperative. HEENT: Conjunctivae/corneas clear. Neck: Trachea midline. Respiratory: Normal respiratory effort. Clear to auscultation Cardiovascular: Regular rate and rhythm Abdomen: Soft, non-tender, non-distended with normal bowel sounds. Musculoskeletal: Right foot TMA Neuro: Non Focal. Patient was seen by the following consultants while admitted to [facility]: Consults: IP CONSULT TO VASCULAR SURGERY Significant Diagnostic Studies: Refer to chart Please refer to chart if no studies are shown here No results found. Discharge Medications: Chandler Minor Home Medication Instructions FLORENTIN:[id number] Printed on:12/29/20 1111 Medication Information amLODIPine (NORVASC) 2.5 MG tablet Take 2.5 mg by mouth daily aspirin 81 MG chewable tablet Take 1 tablet by mouth daily atorvastatin (LIPITOR) 40 MG tablet Take 40 mg by mouth daily buPROPion (WELLBUTRIN XL) 300 MG extended release tablet Take 300 mg by mouth daily carvedilol (COREG) 25 MG tablet Take 25 mg by mouth 2 times daily citalopram (CELEXA) 20 MG tablet Take 20 mg by mouth daily clopidogrel (PLAVIX) 75 MG tablet Take 75 mg by mouth daily collagenase (SANTYL) 250 UNIT/GM ointment Apply topically daily Apply topically to incision on Saturday, Saturday, Saturday. DAPTOmycin (CUBICIN) 500 MG injection Infuse 850 mg intravenously daily docusate sodium (COLACE) 100 MG capsule Take 100 mg by mouth 2 times daily as needed for Constipation doxazosin (CARDURA) 1 MG tablet Take 2.5 mg by mouth nightly For HTN escitalopram (LEXAPRO) 5 MG tablet Take 5 mg by mouth daily fludrocortisone (FLORINEF) 0.1 MG tablet Take 0.1 mg by mouth 2 times daily furosemide (LASIX) 40 MG tablet Take 40 mg by mouth 2 times daily I tablet by mouth twice a day related to essential hypertension. insulin glargine (LANTUS) 100 UNIT/ML injection vial Inject into the skin nightly 45 units subcutaneously two times a day levothyroxine (SYNTHROID) 25 MCG tablet Take 25 mcg by mouth Daily melatonin 3 MG TABS tablet Take 6 mg by mouth daily At HS methocarbamol (ROBAXIN) 500 MG tablet Take 500 mg by mouth 4 times daily As needed spasms metOLazone (ZAROXOLYN) 2.5 MG tablet Take 2.5 mg by mouth daily By mouth every Saturday and for edema nitroGLYCERIN (NITRODUR) 0.1 MG/HR Place 1 patch onto the skin 2 times daily as needed For HTN omeprazole (PRILOSEC) 20 MG delayed release capsule Take 20 mg by mouth daily potassium chloride (KLOR-CON M) 10 MEQ extended release tablet Take 10 mEq by mouth daily pregabalin (LYRICA) 75 MG capsule Take 75 mg by mouth 3 times daily. rOPINIRole (REQUIP) 2 MG tablet Take 2 mg by mouth 3 times daily traZODone (DESYREL) 50 MG tablet Take 50 mg by mouth nightly As needed for insomnia valsartan (DIOVAN) 320 MG tablet Take 320 mg by mouth daily Disposition: If discharged to Home, Any [facility] needs that were indicated and/or required as been addressed and set up by Social Work. Condition at discharge: good Activity: activity as tolerated Total time taken for discharging this patient: 40 minutes. Greater than 70% of time was spent focused exclusively on this patient. Time was taken to review chart, discuss plans with consultants, reconciling medications, discussing plan answering questions with patient. Signed: Kaiser Galarza 12/29/2020, 11:11 AM Chandler Minor, documented in this encounter Discharge Instructions * Discharge Instr - Activity* Hoda Sykes RN - 12/29/2020 10:40 AM EDT No baths for 2 weeks; ok to shower No heavy lifting of anything over 5 lbs for 2 weeks Continue with NWB to right foot * Discharge Instr - Diet* Hoda Sykes RN - 12/29/2020 10:40 AM EDT Good nutrition is important when healing from an illness, injury, or surgery. Follow any nutrition recommendations given to you during your hospital stay. If you were given an oral nutrition supplement while in the hospital, continue to take this supplement at home. You can take it with meals, in-between meals, and/or before bedtime. These supplements can be purchased at most local grocery stores, pharmacies, and chain [employer]-stores. If you have any questions about your diet or nutrition, call the hospital and ask for the dietitian. Continue to follow a low fat, low cholesterol, diabetic diet * Discharge Instr - JACOBO* Hoda Sykes RN - 12/29/2020 11:11 AM EDT Continuity of Care Form Patient Name: Chandler Minor : 1970 Admit date: 12/28/2020 Discharge date: 12/29/20 Code Status Order: Full Code Advance Directives: Admitting Physician: Kaiser Galarza MD PCP: Fadi Tenorio Sr, DO Discharging Nurse: ITZ Discharging Hospital Unit/Room#: W194/W194-01 Discharging Unit Phone Number: [phone] Emergency Contact: Extended Emergency Contact Information Primary Emergency Contact: Tiffanie Minor Relation: Child Preferred language: [employer] Teacher needed? No Secondary Emergency Contact: Suzan Minor Relation: Parent Preferred language: [employer] Teacher needed? No Past Surgical History: Past Surgical History: Procedure Laterality Date TOE AMPUTATION Right Immunization History: There is no immunization history on file for this patient. Active Problems: Patient Active Problem List Diagnosis Code Vascular occlusion I99.8 Isolation/Infection: Isolation No Isolation Patient Infection Status None to display Nurse Assessment: Last Vital Signs: BP (!) 155/79 Pulse 85 Temp 98.1 F (36.7 C) (Oral) Resp 18 Ht 5' 6 (1.676 m) Wt 294 lb (133.4 kg) SpO2 100% BMI 47.45 kg/m Last documented pain score (0-10 scale): Pain Level: 5 Last Weight: Wt Readings from Last 1 Encounters: 12/28/20 294 lb (133.4 kg) Mental Status: oriented, alert, coherent, logical, thought processes intact and able to concentrateand follow conversation IV Access: - PICC - site R Upper Arm, insertion date: Nursing Mobility/ADLs: Walking Assisted Transfer Assisted Bathing Assisted Dressing Assisted Toileting Assisted Feeding Independent Plant Guide Assisted Med Delivery whole Wound Care Documentation and Therapy: Wound 12/28/20 Foot Right (Active) Wound Etiology Surgical 12/29/20 1024 Dressing Status New dressing applied 12/29/20 1024 Wound Cleansed Betadine/povidone iodine 12/29/20 1024 Dressing/Treatment Betadine swabs/povidone iodine 12/29/20 1024 Dressing Change Due 12/30/20 12/29/20 1024 Wound Length (cm) 6 cm 12/29/20 1024 Wound Width (cm) 9.5 cm 12/29/20 1024 Wound Surface Area (cm^2) 57 cm^2 12/29/20 1024 Wound Assessment Eschar dry;Eschar moist 12/29/20 1024 Drainage Amount Scant 12/29/20 1024 Drainage Description Yellow 12/29/20 1024 Odor None 12/29/20 1024 Janette-wound Assessment Blanchable erythema 12/29/20 1024 Wound Thickness Description not for Pressure Injury Full thickness 12/29/20 1024 Number of days: 1 Elimination: Continence: Bowel: Yes Bladder: Yes Urinary Catheter: None Colostomy/Ileostomy/Ileal Conduit: No Date of Last BM: Intake/Output Summary (Last 24 hours) at 12/29/2020 1111 Last data filed at 12/28/2020 2240 Gross per 24 hour Intake Output 1400 ml Net -1400 ml I/O last 3 completed shifts: In: - Out: 1400 [Urine:1400] Safety Concerns: At Risk for Falls Impairments/Disabilities: 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 Ventilator: - No ventilator support Rehab Therapies: Physical Therapy and Occupational Therapy Weight Bearing Status/Restrictions: Non-weight bearing on right leg Other Medical Equipment (for information only, NOT a DME order): walker, bedside commode and hospital bed Other Treatments: Patient's personal belongings (please select all that are sent with patient): {[facility] DME Belongings:[id number]:::0} RN SIGNATURE: CASE MANAGEMENT/SOCIAL WORK SECTION Inpatient Status Date: Readmission Risk Assessment Score: Readmission Risk Risk of Unplanned Readmission: 15 Discharging to Facility/ Agency Name: [facility] Address:[address] [place] [address] Fax: Dialysis Facility (if applicable) Name: Address: Dialysis Schedule: Phone: Fax: Resin Shaver/Premium Note Interest Calculator Clerk signature: PHYSICIAN SECTION Prognosis: Good Condition at Discharge: Stable Rehab Potential (if transferring to Rehab): Recommended Labs or Other Treatments After Discharge: Close follow up with infectious disease; close follow up with vascular surgery; close follow up with wound care center Physician Certification: I certify the above information and transfer of Chandler Minor is necessary for the continuing treatment of the diagnosis listed and that he requires Long Term Facilityfor less 30 days. Update Admission H&P: No change in H&P PHYSICIAN SIGNATURE: documented in this encounter Chief Complaint and Reason for Visit Chief Complaint chest pain Chief Complaint chest pain Reason for Visit Chest pain Hx of right BKA Hypertensive emergency Diabetes mellitus Tobacco abuse Chief Complaint chest pain DM Reason for Visit Chest pain Hx of right BKA Hypertensive emergency Diabetes mellitus Tobacco abuse Chief Complaint DM cp Chief Complaint FRANK Reason for Visit FRANK (acute kidney in jury) Dehydration CKD (chronic kidney disease) stage 3, GFR 30-59 ml/min Diabetes mellitus Hypertension Chief Complaint low gluc Altered mental status, hypoglycemia, hypothermia Chief Complaint low gluc Altered mental status, hypoglycemia, hypothermia Reason for Visit BPH (benign prostati c hyperplasia) CKD (chronic kidney disease), stage IV CVA (cerebral vascular accident) Diabetes Hypertension Hypothyroid Altered mental state Hypoglycemia Hypothermia Leukocytosis Chief Complaint * Patient is a 51-year-old diabetic gentleman who returns following recent non- ST elevation [place], cardiac catheterization revealed severe LAD disease throughout the entire course of the vessel that is not amenable to revascularization. He has a large dominant circumflex that has minimal disease with extensive inferior, posterior and lateral coverage. His ejection fraction is 45%. We reviewed his angiogram next with him extensively today and options. * He has been relegated to medical therapy, as his LAD is not revascularizable. Blood pressure is significantly elevated today, he has been having angina as well. * Underlying comorbidities are noted for diabetes, tobacco use, PVD, accelerated hypertension, the above-mentioned ASHD with mild ischemic cardiomyopathy. * Recommendations: Discontinue losartan, initiate Entresto 24 26 twice daily with follow-up with nurse practitioner for titration, increase isosorbide to 60 mg, smoking cessation counseling for 5 to 10minutes performed today as well as counseling on guideline directed medical therapies. Medications Administered Section Active Administered Medications - up to 3 most recent administrations Medication Order MAR Action Action Date Dose Rate Site PHENYLephrine 2.5 % 1 Drop (AK-DILATE, YVES-SYNEPHRINE) 1 Drop, BOTH EYES, DIRECTED, Starting on Sat09/03/22 at 1430, Until Sat09/04/22 at 0229, Administer for dilation PROTECT FROM LIGHT Given 09/03/2022 2:30 PM EST 1 Drop tropicamide 1 % 1 Drop (MYDRIACYL) 1 Drop, BOTH EYES, DIRECTED, Starting on Sat09/03/22 at 1430, Until Sat09/04/22 at 0229, Administer for dilation Given 09/03/2022 2:30 PM EST 1 Drop Additional Source Comments (unrecognized sect ion and content) No Status Records FoundNo Status Records FoundNo Status Records FoundNo Status Records FoundNo Status Records FoundNo Status Records FoundNo Status Records FoundNo Status Records FoundNo Status Records Found INFORMATION SOURCE (unrecogn ized section and content) DATE CREATED AUTHOR 01/16/2019 Lalo Mariscal [facility] DATE CREATED AUTHOR AUTHOR'S ORGANIZ ATION 12/30/2020 [facility] DATE CREATED AUTHOR AUTHOR'S ORGANIZ ATION 03/08/2022 [facility] DATE CREATED AUTHOR AUTHOR'S ORGANIZ ATION 09/04/2022 [facility] DATE CREATED AUTHOR AUTHOR'S ORGANIZ ATION 03/23/2023 [facility] DATE CREATED AUTHOR AUTHOR'S ORGANIZ ATION 09/19/2023 [facility] SOM DATE CREATED AUTHOR AUTHOR'S ORGANIZ ATION 10/18/2023 [facility] DATE CREATED AUTHOR AUTHOR'S ORGANIZ ATION 10/20/2023 [facility] DATE CREATED AUTHOR AUTHOR'S ORGANIZ ATION 10/23/2023 [facility] Reason for Visit (unrecogniz ed section and content) Status Reason Specialty Diagnoses / Procedures Referre d By Contact Referred To Contact Closed Radiology Diagnoses Atherosclerosis 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 (HCC) Procedures CTA ABDOMINAL AORTA [place] [address] [place] [address] Status Reason Specialty Diagnoses / Procedures Referre d By Contact Referred To Contact [facility] Reason Comments Other sent from cardiac, n eeds to be admitted, vascular issue rle Status Reason Specialty Diagnoses / Procedures Referred By Contact Referred To Contact Diagnoses V[place] [address] [place] [address] [facility] Reason Onset Date Comments Other sympt/complt of eye 02/12/2022 Reason Comments Diabetic Eye Exam Reason Comments Disability Evaluation Specialty Diagnoses / Procedures Referred By Contac t Referred To Contact Optometry / OPHTHALMOLOGY Diagnoses Iroquois Disability Exam (Case#[id number]) Procedures NEW ADULT Self Vj Haddad II, OD [address] [place] [address] Referral ID Status Reason Start Date Expiration Date Visits Re quested Visits Authorized [id number] Closed 09/03/2022 09/03/2022 1 1 Reason Comments Follow Up PDR OU and DME OU Reason Comments 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 Reason Comments Urgent Visit for Eye Infection Reason Comments retina f/u Reason Comments Follow Up PDR OU Reason Comments follow up Ordered Prescriptions (unrec ognized section and content) Prescription Sig Dispensed Refills Start Date End Da te aspirin 81 MG chewable tablet Take 1 tablet by mouth daily 30 tablet 3 12/30/2020 Care Teams (unrecognized sec tion and content) Team Status: Active Member Role Status Juan Tenorio DO Primary Care Provider Active Mario Phillips DO Emergency Provider Active Jonn Wallace MD Admit Provider, Attending Edinson terrazas Active Team Status: Active Member Role Status Juan Tenorio DO Primary Care Provider Active Team Status: Inactive Member Role Status Juan Tenorio DO Primary Care Provider Active Mario Phillips DO Emergency Provider Active Jonn Wallace MD Admit Provider, Attending Edinson terrazas Active Shavonne iMttal RN Other Provider Active Leann Sarmiento DO Other Provider Active Madeilne Valdez MD Other Provider Active Jaylen Brooks MD Other Provider Active Eduin Johnson MD Other Provider Active Fadi Howard MD Other Provider Active Aicha Rodriguez APRN Other Provider Active Leticia Da Silva MD Other Provider Active Manuel Strong MD Other Provider Active Malik Hernandez MD Other Provider Active Team Status: Active Member Role Status Juan Tenorio DO Primary Care Provider Active Mika Das APRN Attending Provider Active Tripe Cooker Relationship Specialty Start Date End Date Rober Lopes MD [facility] [place] [address] Physician Ophthalmology 07/19/20 Raul Chamberlain MD [address] [place] [address] Resident Ophthalmology 07/19/20 Agustin Hampton MD [address] [place] [address]276 Resident Ophthalmology 11/18/21 Tripe Cooker Relationship Specialty Start Date End Date Rober Lopes MD [address] [place] [address] 77113 Physician Ophthalmology 07/19/20 Raul Chamberlain MD [address] [place] [address] [place] [address] Resident Ophthalmology 07/19/20 Agustin Hampton MD [address] [place] [address]11 Resident Ophthalmology 11/18/21 Tripe Cooker Relationship Specialty Start Date End Date Rober Lopes MD [address] [place] [address] 09334 Physician Ophthalmology 07/19/20 Raul Chamberlain MD [address] [place] [address] [place] [address] Resident Ophthalmology 07/19/20 Agustin Hampton MD [address] [place] [address] 8[address]67 Resident Ophthalmology 11/18/21 Tripe Cooker Relationship Specialty Start Date End Date Rober Lopes MD [address] [place] [address] 69795 Physician Ophthalmology 07/19/20 Raul Chamberlain MD [address] [place] [address] [place] [address] Resident Ophthalmology 07/19/20 Agustin Hampton MD [address] [place] [address] 14650 Resident Ophthalmology 11/18/21 Tripe Cooker Relationship Specialty Start Date End Date Rober Lopes MD [address] [place] [address] 89098 Physician Ophthalmology 07/19/20 Raul Chamberlain MD [address] [place] [address] [place] [address] Resident Ophthalmology 07/19/20 Agustin Hampton MD [address] [place] [address] 32531 Resident Ophthalmology 11/18/21 Team Status: Inactive Member Role Status Juan Tenorio , DO Primary Care Provider Active Sinan Holly , DO Emergency Provider Active Suzan Bennett MD RES Active Tripe Cooker Relationship Specialty Start Date End Date Rober Lopes MD [address] [place] [address] 46814 Physician Ophthalmology 07/19/20 Raul Chamberlain MD [address] [place] [address] [place] [address] Resident Ophthalmology 07/19/20 Agustin Hampton MD [address] [place] [address] 77244 Resident Ophthalmology 11/18/21 Demetri Frank MD [address] [place] [address] 44453 Physician Ophthalmology 04/14/22 Tripe Cooker Relationship Specialty Start Date End Date Rober Lopes MD [address] [place] [address] 82307 Physician Ophthalmology 07/19/20 Raul Chamberlain MD [address] [place] [address] [place] [address] Resident Ophthalmology 07/19/20 Agustin Hampton MD [address] [place] [address] 87258 Resident Ophthalmology 11/18/21 Demetri Frank MD [address] [place] [address] 99439 Physician Ophthalmology 04/14/22 Tripe Cooker Relationship Specialty Start Date End Date Rober Lopes MD [address] [place] [address] 45546 Physician Ophthalmology 07/19/20 Raul Chamberlain MD [address] [place] [address] [place] [address] Resident Ophthalmology 07/19/20 Agustin Hampton MD [address] [place] [address] Resident Ophthalmology 11/18/21 Demetri Frank MD [address] [facility] [place] [address] Physician Ophthalmology 04/14/22 Tripe Cooker Relationship Specialty Start Date End Date Rober Lopes MD [address] [place] [address]24 Physician Ophthalmology 07/19/20 Raul Chamberlain MD [address] [place] [address] [place] [address] Resident Ophthalmology 07/19/20 Agustin Hampton MD [address] [place] [address] 39[address] Resident Ophthalmology 11/18/21 Demetri Frank MD [address] [place] [place] [address] Physician Ophthalmology 04/14/22 Team Status: Inactive Member Role Status Juan Tenorio , DO Primary Care Provider Active Kameron Dos Santos , DO Attending Provider Active Albert Woods , DO Admit Provider Active Nkechi Kc MD Other Provider Active Tripe Cooker Relationship Specialty Start Date End Date Rober Lopes MD [address] [place] [address] Physician Ophthalmology 07/19/20 Raul Chamberlain MD [address] [place] [address] Resident Ophthalmology 07/19/20 Agustin Hampton MD [address] [place] [address] Resident Ophthalmology 11/18/21 Demetri Frank MD [address] [place] [address] Physician Ophthalmology 04/14/22 Team Status: Active Member Role Status Dates Doctor None , DO Primary Care Provider Active Team Status: Active Member Role Status Dates Christopher Santiago , DO Emergency Provider Active Doctor None , DO Primary Care Provider Active Chava Hernandez , DO Attending Provider Active Team Status: Active Member Role Status Dates Christopher Santiago , DO Emergency Provider Active Doctor None , DO Primary Care Provider Active Helen Jovel MD Admit Provider, Attending Provi rajwinder Active Team Status: Inactive Member Role Status Dates Christopehr Santiago , DO Emergency Provider Active Doctor None , DO Primary Care Provider Active Helen Jovel MD Admit Provider Active Radha Bell MD Other Provider Active Kan Granger MD Other Provider Active Jose Maria Lopez MD Other Provider Active Geovani Hebert MD Other Provider Active Elvin Lyles MD Other Provider Active Manda Scott , Other Provider Active Marcelino Abel MD Other Provider Active Steve Block MD Other Provider Active Agus Morrison MD Other Provider Active Harjeet Ruelas MD Attending Provider Active Tripe Cooker Relationship Specialty Start Date End Date Rober Lopes MD [address] [place] [address] Physician Ophthalmology 07/19/20 Raul Chamberlain MD [address] [facility] [address] Resident Ophthalmology 07/19/20 Agustin Hampton MD [address] [place] [address] Resident Ophthalmology 11/18/21 Demetri Frank MD [address] [place] [address] Physician Ophthalmology 04/14/22 Tripe Cooker Relationship Specialty Start Date End Date Rober Lopes MD [address] [place] [address] Physician Ophthalmology 07/19/20 Raul Chamberlain MD [address] [facility] [place] [address] Resident Ophthalmology 07/19/20 Agustin Hampton MD [address] [place] [address] Resident Ophthalmology 11/18/21 Demetri Frank MD [address] [place] [address] Physician Ophthalmology 04/14/22 Goals (unrecognized section and content) Goals may be documented in a n alternate sectionNo InformationNo InformationNo InformationNo InformationNo InformationNo InformationNo InformationNo InformationNo InformationNo InformationNo InformationNo InformationNo InformationNo InformationNo InformationGoals may be documented in an alternate sectionNo InformationNo InformationNo InformationNo InformationNo InformationNo InformationNo InformationNo InformationNo InformationNo InformationNo InformationNo InformationNo InformationNo InformationGoals may be documented in an alternate sectionNo Information Source Comments (unrecognize d section and content) In the event this informatio n is protected by the Federal Confidentiality of Alcohol and Drug Abuse Patient Records regulations: The Federal rules restrict any use of the information to criminally investigate or prosecute any alcohol or drug abuse patient.[facility] FOR RECORDS PERTAINING TO PATIENTS WHO ARE OR HAVE BEEN ENROLLED IN A CHEMICAL DEPENDENCY/SUBSTANCEABUSE PROGRAM, SOME INFORMATION MAY BE OMITTED. This clinical summary was aggregated from multiple sources. Caution should be exercised in using it in the provision of clinical care. This summary normalizes information from multiple sources, and as a consequence, information in this document may materially change the coding, format and clinical context of patient data. In addition, data may be omitted in some cases. CLINICAL DECISIONS SHOULD BE BASED ON THE PRIMARY CLINICAL RECORDS. [facility] [employer] [facility]. provides no warranty or guarantee of the accuracy or completeness of information in this document.
--- NOTE | 2023-10-23 14:22 | CA_ITS ---
[facility] Test Date: 2023-10-23 Pat Name: KURTIS CHOUDHURY Department: Room: - Gender: Male [employer] Person: : 1970 Requested By: CLIVE RICO Order Number: [id number] Reading MD: SONIA LOZA Interpretive Statements Biphasic doppler waveforms. PVR waveforms with delayed upstroke, blunted ambplitude and loss of dicrotic notch. Right: - amputated lower extremity Left: - no significant pressure gradient between cuffs - normal CLITN and TBI Impression: - amputation RLE - normal arterial evaluation of the left lower extremity without hemodynamic impairment of the LLE at rest. - left CLINT 1.11 Electronically Signed On 10-24-2023 7:06:19 EST by SONIA LOZA
== END 2023-10-23 13:25 | disposition home or self-care (01) ==
LOC: CARD 13:25
PROVIDERS: PCP Family Medicine; Visit Provider Podiatrist Foot & Ankle Surgery
DX: E11.621 Type 2 diabetes mellitus with foot ulcer (principal); L97.422 Non-pressure chronic ulcer of left heel and midfoot with fat layer exposed
CPT/HCPCS: 93923

== ENCOUNTER 2023-10-25 09:54 | Outpatient (OUT) | payer MEDICARE, SELFPAY ==
--- OUTSIDE RECORDS SUMMARY | 2023-10-25 10:04 | XMS_ITS | CCD ---
Author Name Unknown Address [address] [place] [address] Organization [facility] Care Team Providers Care Academic Affairs Director Name Role Phone Fatoumata Tirado Admitting Unavailable [...] Provider MD Jonn Wallace Attending Provider [phone] DO Fadi Tenorio Primary Care Provider DO Mario Phillips Emergency Provider [phone] MD Jonn Wallace Admit Provider MD Jonn Wallace Attending Provider TANYA Mittal Other Provider Unavailable DO Leann [...] Provider Elayne DO Sinan Wilkes Emergency Provider [phone] Unavailable Primary Care Provider UnavailVJ Gomez II Attending Unavaildixon Lopes MD, Rober Unavailable Bulmaro FLAHERTY, Raul Unavailable Berta FLAHERTY, Agustin Unavailable Vivian FLAHERTY, Demetri Unavailable Shahla FLAHERTY, Rober Unavailable Bulmaro FLAHERTY, Raul Unavailable Berta FLAHERTY, Agustin Unavailable Vivian FLAHERTY, Demetri Unavailable Vivian FLAHERTY, Demetri Unavailable Unavailable Unavailable DR MURRAY YEBOAH Consulting Unavailable RODERICK ., ALDO Admitting Unavailable RODERICK ., ALDO Attending Unavailable MAYFIELD, DR DUCKWORTH Primary Care Unavailable SERA ., DR SHERMAN Consulting Unavailable FAWWAD, SHAIKH Amada Consulting Unavailable DANDY, ANIBAL Consulting Unavailable LAZ, LOTTIE Consulting Unavailable SISTER, JESSICA Consulting Unavailable RODERICK ., ALDO Consulting Unavailable NEWATIA, SAMANTHA Consulting Unavailable BARAZI, TONY Consulting Unavailable FEIDERJUAN LUIS Consulting Unavailable COBY, DR DUCKWORTH Primary Care Unavailable MAYFIELD, DR DUCKWORTH Admitting Unavailable HOUSE, DR DUCKWORTH Attending Unavailable MAYFIELD, DR DUCKWORTH Consulting Unavailable COBY, DR DUCKWORTH [...] Unavailable DO Fadi Tenorio Primary Care Provider DO Kameron Dos Santos Attending Provider DO Albert Woods Admit Provider MD Nkechi Kc Other Provider Vivian FLAHERTY, Demetri Unavailable [phone] DO Christopher Santiago Emergency Provider [phone] None, DO Doctor Primary Care Provider UnavailDO Chava Veras Attending Provider [phone] MD Helen Jovel Admit Provider MD Helen Jovel Attending Provider [phone] MD Radha Bell Other Provider [phone] MD Kan Granger Other Provider MD Jose Maria Lopez Other Provider [phone] MD Geovani Hebert Other Provider MD Elvin Lyles Other Provider DO Manda Scott Other Provider MD Marcelino Abel Other Provider MD Steve Block Other Provider MD Agus Morrison Other Provider MD Harjeet Ruelas Attending Provider [phone] Marcelino Abel Attending Unavailable Radha Bell Consulting [...] Care Unavailable Remi Iyer MD Attending Unavailable COBY, FADI Neves [...] sources) Promethazine; Translations: [Phenergan] Drug Allergy 6 [facility] Repository (20 sources) Promethazine; Translations: [promethazine] Drug Allergy 6 Other: See Comments b-datum Phone: (2 sources) Promethazine Drug Allergy 2 [facility] Repository Medications Current Medications Medication Drug [...] UP TO 7 DAYS 0 10/08/2020 Active [id number] 200 actuat albuterol 0.09 mg/actuat metered dose [...] Q4H 15 December 24, 2019 10:24am 12-24-2019 [facility] ([id number]) 0 12/24/2019 Active Start: 12-18-2019 End: 01-27-2021 [...] D2) 1,250 mcg (50,000 unit) Capsule Active 68429 UNIT ORAL Every Week August 02, 2023 12:00am Start: 04-11-2023 take 1 capsule by [facility] every week Ergocalciferol 1.25 MG (08556 UT) 1 capsule Orally Q week for [...] daily 60 December 24, 2019 10:24am 12-24-2019 [facility] ([id number]) 0 12/24/2019 Active Start: 12-24-2019 End: 01-27-2021 [...] and bedtime December 24, 2019 10:24am 12-24-2019 [facility] ([id number]) 0 12/24/2019 Active NovoLOG FlexPen 100 UNIT/ML [...] Subcutaneous Daily December 24, 2019 10:24am 12-24-2019 [facility] ([id number]) 0 12/24/2019 Active Start: 12-24-2019 End: 06-21-2021 [...] DO Active take 2 tablets by mo [facility] once daily at bedtime melatonin [...] day by translingual route. 0 Active [place] 5/16 (19 sources) Start: 02-14-2022 [place] 5/ 16 Use with insulin pen needles SQ 6 times per day for 90 days February, Active Start: 02-14-2022 [place] 5/ 16 Use with insulin pen needles SQ 6 times per day for 90 day(s) February, Active [place] 5/16 Use with insulin pen needles SQ 6 times per day for 90 days Active phenylephrine hydrochloride 25 mg/ml ophthalmic solution (1 source) alpha-1 Adrenergic Agonist Start: 09-03-2022 End: 09-04-2022 PHENYLephrine 2.5 % 1 Drop (AK-DILATE, YVES-SYNEPHRINE) polyethylene glycol 3350 02104 mg powder for oral solution (7 sources) [...] 11:20pm Start: 01-27-2021 take 2 tablets by [facility] once daily potassium chloride SA (K-DUR) 20 [...] Oral Daily December 24, 2019 10:24am 12-24-2019 [facility] ([id number]) 0 12/24/2019 Active take 2 tablets by mo [facility] once daily Potassium Chloride Ria [...] 2019 12:00am January 27, 2021 1:52pm sennosides, care home 8.6 mg oral tablet (15 sources) Start: 12-24-2019 senna (SENOKOT ) 8.6 MG TABS tablet sennosides, FDC Sennosides Active 2 TAB Oral DAILY@December 24, 2019 10:24am 12-24-2019 [facility] ([id number]) 0 12/24/2019 Active take 2 tablets by [facility] every twenty-four hours Senna Laxative 8.6 MG [...] Topical Daily December 24, 2019 5:24pm 12-24-2019 [facility] ([id number]) 0 12/24/2019 Active Start: 12-24-2019 bacitracin 500 UNIT/GM ointment Bacitracin Bacitracin Active 1 APPLIC Topical Daily December 24, 2019 5:24pm 12-24-2019 [facility] ([id number]) 0 12/24/2019 Active Bacitracin Activ e bevacizumab [...] 5:16pm Start: 09-26-2020 take 1 capsule by [facility] three times daily pregabalin (LYRICA) 75 MG capsule Take 75 mg by mouth 3 times daily. 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] Episodic Other aftercare (4 sources) detention (current) use of insulin; Translations: [detention current use of insulin Z79.4] Onset: 1 Resolved: 2 Episodic Other aftercare (1 source) detention (current) use of antithrombotics/antiplat elets; Translations: [UNITIZER ANTITHROMBOT/ANTIPLATLET S] Onset: 3 Episodic Other aftercare (1 source) detention (current) use of aspirin; Translations: [SNF CURRENT USE OF ASPIRIN] Onset: 3 Episodic Other aftercare (1 source) superintendent container terminal (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 The time was 4:54 PM. Confirmed correct patient, procedure, site, and patient consented. Anesthesia Subconjunctival anesthesia was used. Anesthetic medications included Lidocaine 2%. Procedure Preparation included 5% betadine to ocular surface. A 30 gauge needle was used. Injection Medications: 1.25 mg bevacizumab 1.25MG/0.05 mL Route: Intravitreal Lot: [id number], Expiration date: 09/11/2023 Post-op Post injection exam found visual acuity of at least counting fingers. The patient tolerated the procedure well. There were no complications. Post injection medications were not given. Notes Avastin [facility] Radiology Study observation (narrative) [facility] Progress Noteson 09-11-2023 Pcts Authentication Interface Message Text Longstanding PDR OU, [...] Dilate OU OCT mac OU Normal [facility] observation Right reti na by OCTon 09-11-2023 Right Eye Quality was good. Scan locations included subfoveal. Left Eye Quality was good. Scan locations included subfoveal. Notes OD: stable, thin, no fluid OS: improving view, thin, no fluid [facility] Radiology Study observation (narrative) [facility] Blood Cultureon 08-07-2023 Bacteria identified Cx Nom (Bld) ---- Blood Culture: NG5^NO GROWTH. NG5^Time of report was 120 hours. Normal [facility] Comment on above: Order Comment: Speci men Type: Unknown Relevant Clinical Information: Altered mental status, hypoglycemia, hypothermia Ordering Facility: [facility] Lab-CLIA#[id number] Address: [address] [place], [place] [address] Performed By: #### M G, CMP #### [facility]-CLIA#[id number] CLIA [id number] [address] [place] [address] Phil Franklin, DO,FCAP Absolute lymphocyte countOrd ered By: Helen Jovel on 08-03-2023 Lymphocytes Auto (Unsp spec) [#/Vol] 1.26 10*3/uL 0.80-3.30 [facility] Comment on above: Delta: 0.92 on 08/02 Basophils Auto (Bld) [#/Vol] Ordered By: Helen Jovel on 08-03-2023 Basophils (Bld) [#/Vol] 0.03 10*3/uL 0.00-0.10 [facility] Basophils/100 WBC Auto (Bld) Ordered By: Helen Jovel on 08-03-2023 Basophils/100 WBC (Bld) 0.3 % 0.0-1.3 S [facility] Blood hemoglobin measurement (mass/volume)Ordered By: Helen Jovel on 08-03-2023 Hemoglobin (Bld) [Mass/Vol] 11.7 g/dL 13.5-17.7 [facility] Comment on above: Delta: 14.0 on 08/02 CBC w/ Auto Diffon Basophils Absolute Auto 0.03 10*3/uL Normal 0.00-0.10 [facility] Comment on above: Order Comment: Speci men Type: Unknown Relevant Clinical Information: Altered mental status, hypoglycemia, hypothermia Ordering Facility: [facility] Address: , , Performed By: #### G LUCOMETER #### [facility] Basophils/100 WBC (Bld) 0.3 % Normal 0.0-1.3 S [facility] Comment on above: Order Comment: Speci men Type: Unknown Relevant Clinical Information: Altered mental status, hypoglycemia, hypothermia Ordering Facility: [facility] Address: , , Performed By: #### G LUCOMETER #### [facility] Eosinophils (Bld) [#/Vol] 0.31 10*3/uL Normal 0.00-0.50 [facility] Comment on above: Order Comment: Speci men Type: Unknown Relevant Clinical Information: Altered mental status, hypoglycemia, hypothermia Ordering Facility: [facility] Address: , , Performed By: #### G LUCOMETER #### [facility] Eosinophils/100 WBC (Bld) 3.0 % Normal 0.0-5.8 [facility] Comment on above: Order Comment: Speci men Type: Unknown Relevant Clinical Information: Altered mental status, hypoglycemia, hypothermia Ordering Facility: [facility] Address: , , Performed By: #### G LUCOMETER #### [facility] Erythrocyte distribution width (RBC) [Ratio] 13.2 % Normal 11.6-14.8 [facility] Comment on above: Order Comment: Speci men Type: Unknown Relevant Clinical Information: Altered mental status, hypoglycemia, hypothermia Ordering Facility: [facility] Address: , , Performed By: #### G LUCOMETER #### [facility] Hematocrit (Bld) [Volume fraction] 34.3 % Low 41.0-53.0 [facility] Comment on above: Order Comment: Speci men Type: Unknown Relevant Clinical Information: Altered mental status, hypoglycemia, hypothermia Ordering Facility: [facility] Address: , , Performed By: #### G LUCOMETER #### [facility] Hemoglobin (Bld) [Mass/Vol] 11.7 g/dL Low 13.5-17.7 [facility] Comment on above: Order Comment: Speci men Type: Unknown Relevant Clinical Information: Altered mental status, hypoglycemia, hypothermia Ordering Facility: [facility] Address: , , Performed By: #### G LUCOMETER #### [facility] Lymphocytes (Bld) [#/Vol] 1.26 10*3/uL Normal 0.80-3.30 [facility] Comment on above: Order Comment: Speci men Type: Unknown Relevant Clinical Information: Altered mental status, hypoglycemia, hypothermia Ordering Facility: [facility] Address: , , Performed By: #### G LUCOMETER #### [facility] Lymphocytes/100 WBC (Bld) 12.2 % Low 13.4-45.1 [facility] Comment on above: Order Comment: Speci men Type: Unknown Relevant Clinical Information: Altered mental status, hypoglycemia, hypothermia Ordering Facility: [facility] Address: , , Performed By: #### G LUCOMETER #### [facility] MCH (RBC) [Entitic mass] 31.5 pg Normal 27.2-33.0 [facility] Comment on above: Order Comment: Speci men Type: Unknown Relevant Clinical Information: Altered mental status, hypoglycemia, hypothermia Ordering Facility: [facility] Address: , , Performed By: #### G LUCOMETER #### [facility] MCHC (RBC) [Mass/Vol] 34.1 g/dL Normal 31.9-35.1 [facility] Comment on above: Order Comment: Speci men Type: Unknown Relevant Clinical Information: Altered mental status, hypoglycemia, hypothermia Ordering Facility: [facility] Address: , , Performed By: #### G LUCOMETER #### [facility] MCV (RBC) [Entitic vol] 92.5 fL Normal 81.7-97.1 [facility] Comment on above: Order Comment: Speci men Type: Unknown Relevant Clinical Information: Altered mental status, hypoglycemia, hypothermia Ordering Facility: [facility] Address: , , Performed By: #### G LUCOMETER #### [facility] Monocytes (Bld) [#/Vol] 0.77 10*3/uL Normal 0.30-0.90 [facility] Comment on above: Order Comment: Speci men Type: Unknown Relevant Clinical Information: Altered mental status, hypoglycemia, hypothermia Ordering Facility: [facility] Address: , , Performed By: #### G LUCOMETER #### [facility] Monocytes/100 WBC (Bld) 7.5 % Normal 4.0-12.7 [facility] Comment on above: Order Comment: Speci men Type: Unknown Relevant Clinical Information: Altered mental status, hypoglycemia, hypothermia Ordering Facility: [facility] Address: , , Performed By: #### G LUCOMETER #### [facility] Neutrophils Absolute Auto 7.89 10*3/uL High 1.70-7.00 [facility] Comment on above: Order Comment: Speci men Type: Unknown Relevant Clinical Information: Altered mental status, hypoglycemia, hypothermia Ordering Facility: [facility] Address: , , Performed By: #### G LUCOMETER #### [facility] Neutrophils/100 WBC (Bld) 76.6 % High 41.1-75.9 [facility] Comment on above: Order Comment: Speci men Type: Unknown Relevant Clinical Information: Altered mental status, hypoglycemia, hypothermia Ordering Facility: [facility] Address: , , Performed By: #### G LUCOMETER #### [facility] Platelet mean volume (Bld) [Entitic vol] 11.3 fL Normal 8.6-12.2 [facility] Comment on above: Order Comment: Speci men Type: Unknown Relevant Clinical Information: Altered mental status, hypoglycemia, hypothermia Ordering Facility: [facility] Address: , , Performed By: #### G LUCOMETER #### [facility] Platelets (Bld) [#/Vol] 220 10*3/uL Normal 133-425 [facility] Comment on above: Order Comment: Speci men Type: Unknown Relevant Clinical Information: Altered mental status, hypoglycemia, hypothermia Ordering Facility: [facility] Address: , , Performed By: #### G LUCOMETER #### [facility] RBC (Bld) [#/Vol] 3.71 10*6/uL Low 3.90-5.90 [facility] Comment on above: Order Comment: Speci men Type: Unknown Relevant Clinical Information: Altered mental status, hypoglycemia, hypothermia Ordering Facility: [facility] Address: , , Performed By: #### G LUCOMETER #### [facility] WBC (Bld) [#/Vol] 10.3 10*3/uL Normal 4.5-11.0 [facility] Comment on above: Order Comment: Speci men Type: Unknown Relevant Clinical Information: Altered mental status, hypoglycemia, hypothermia Ordering Facility: [facility] Address: , , Performed By: #### G LUCOMETER #### [facility] Comprehensive Metabolic Pane velasquez 08-03-2023 Albumin [Mass/Vol] 2.9 g/dL Low 3.4-5.0 [facility] Comment on above: Order Comment: Speci men Type: Unknown Relevant Clinical Information: Altered mental status, hypoglycemia, hypothermia Ordering Facility: [facility] Lab-CLIA#[id number] Address: [address] [place] [address] Performed By: #### M Deacon, CMP #### [facility]-CLIA#[id number] CLIA [id number] [address] [place] [address] Phil Franklin DO,NATHANAP ALP [Catalytic activity/Vol] 100 U/L Normal 46-116 [facility] Comment on above: Order Comment: Speci men Type: Unknown Relevant Clinical Information: Altered mental status, hypoglycemia, hypothermia Ordering Facility: [facility]-CLIA#[id number] Address: [address] [place] [address] Performed By: #### Aislinn Worthy, CMP #### [facility]-CLIA#[id number] CLIA [id number] [address] [place] [address] Vincent Randaisi, DO,FCAP ALT [Catalytic activity/Vol] 16 U/L Normal 10-49 [facility] Comment on above: Order Comment: Speci men Type: Unknown Relevant Clinical Information: Altered mental status, hypoglycemia, hypothermia Ordering Facility: [facility]-CLIA#[id number] Address: [address] [place] [address] Performed By: #### Aislinn Worthy, CMP #### [facility]-CLIA#[id number] CLIA [id number] [address] [place] [address] Vincent Randaisi, DO,FCAP Anion gap [Moles/Vol] 12 mmol/L Normal 7-17 [facility] Comment on above: Order Comment: Speci men Type: Unknown Relevant Clinical Information: Altered mental status, hypoglycemia, hypothermia Ordering Facility: [facility]-CLIA#[id number] Address: [address] [place] [address] Performed By: #### Aislinn Worthy, CMP #### [facility]-CLIA#[id number] CLIA [id number] [address] [place] [address] Vincent Randaisi, DO,FCAP AST [Catalytic activity/Vol] 16 U/L Normal <34 [facility] Comment on above: Order Comment: Speci men Type: Unknown Relevant Clinical Information: Altered mental status, hypoglycemia, hypothermia Ordering Facility: [facility]-CLIA#[id number] Address: [address] [place] [address] Performed By: #### Aislinn Worthy, CMP #### [facility]-CLIA#[id number] CLIA [id number] [address] [place] [address] Vincrony Franklin, DO,FCAP Bilirubin [Mass/Vol] 0.3 mg/dL Normal 0.3-1.2 [facility] Comment on above: Order Comment: Speci men Type: Unknown Relevant Clinical Information: Altered mental status, hypoglycemia, hypothermia Ordering Facility: [facility]-CLIA#[id number] Address: [address] [place] [address] Performed By: #### Aislinn Worthy, CMP #### [facility]-CLIA#[id number] CLIA [id number] [address] [place] [address] Phil Franklin, DO,FCAP Calcium [Mass/Vol] 8.2 mg/dL Low 8.3-10.6 [facility] Comment on above: Order Comment: Speci men Type: Unknown Relevant Clinical Information: Altered mental status, hypoglycemia, hypothermia Ordering Facility: [facility]-CLIA#[id number] Address: [address] [place] [address] Performed By: #### Aislinn Worthy, CMP #### [facility]-CLIA#[id number] CLIA [id number] [address] [place] [address] Phil Franklin, DO,FCAP Chloride [Moles/Vol] 111 mmol/L High 98-107 [facility] Comment on above: Order Comment: Speci men Type: Unknown Relevant Clinical Information: Altered mental status, hypoglycemia, hypothermia Ordering Facility: [facility]-CLIA#[id number] Address: [address] [place] [address] Performed By: #### Aislinn Worthy, CMP #### [facility]-CLIA#[id number] CLIA [id number] [address] [place] [address] Phil Dialsi, DO,FCAP CO2 [Moles/Vol] 22 mmol/L Normal 20-31 [facility] Comment on above: Order Comment: Speci men Type: Unknown Relevant Clinical Information: Altered mental status, hypoglycemia, hypothermia Ordering Facility: [facility]-CLIA#[id number] Address: [address] [place] [address] Performed By: #### Aislinn Worthy, CMP #### [facility]-CLIA#[id number] CLIA [id number] [address] [place] [address] Phil Franklin DO,FCAP Creatinine [Mass/Vol] 2.348 mg/dL High 0.70-1.[address] [facility] Comment on above: Order Comment: Speci men Type: Unknown Relevant Clinical Information: Altered mental status, hypoglycemia, hypothermia Ordering Facility: [facility]-CLIA#[id number] Address: [address] [place] [address] Performed By: #### Aislinn Worthy, CMP #### [facility]-CLIA#[id number] CLIA [id number] [address] [place] [address] Phil Franklin DO,FCAP Creatinine [facility] [address] [place] [address] Comment on above: Order Comment: Speci men Type: Unknown Relevant Clinical Information: Altered mental status, hypoglycemia, hypothermia Ordering Facility: [facility]-CLIA#[id number] Address: [address] [place] [address] Performed By: #### Aislinn Worthy, CMP #### [facility]-CLIA#[id number] CLIA [id number] [address] [place] [address] Phil Franklin DO,FCAP GFR/1.73 sq M.predicted MDRD (S/P/Bld) [Vol rate/Area] 31 mL/min/{1.73_m2} [facility] Comment on above: Order Comment: Speci men Type: Unknown Relevant Clinical Information: Altered mental status, hypoglycemia, hypothermia Ordering Facility: [facility]-CLIA#[id number] Address: [address] [place] [address] Result Comment: K/DO QI Guideline: Stage 1 [...] Performed By: #### Aislinn Worthy, CMP #### [facility]-CLIA#[id number] CLIA [id number] [address] [place] [address] Phil Franklin DO,FCAP Glucose [Mass/Vol] 147 mg/dL High 74-106 Averye tanya [facility] Comment on above: Order Comment: Speci men Type: Unknown Relevant Clinical Information: Altered mental status, hypoglycemia, hypothermia Ordering Facility: [facility]-CLIA#[id number] Address: [address] [place] [address] Performed By: #### Aislinn Worthy, CMP #### [facility]-CLIA#[id number] CLIA [id number] [address] [place] [address] Phil Franklin DO,FCAP Potassium [Moles/Vol] 4.6 mmol/L Normal 3.5-5.1 Gauri sen [facility] Comment on above: Order Comment: Speci men Type: Unknown Relevant Clinical Information: Altered mental status, hypoglycemia, hypothermia Ordering Facility: [facility]-CLIA#[id number] Address: [address] [place] [address] Performed By: #### Aislinn Worthy, CMP #### [facility]-CLIA#[id number] CLIA [id number] [address] [place] [address] Phil Franklin DO,FCAP Protein [Mass/Vol] 5.4 g/dL Low 5.7-8.2 oDri martínez [facility] Comment on above: Order Comment: Speci men Type: Unknown Relevant Clinical Information: Altered mental status, hypoglycemia, hypothermia Ordering Facility: [facility]-CLIA#[id number] Address: [address] [place] [address] Performed By: #### Aislinn Worthy, CMP #### [facility]-CLIA#[id number] CLIA [id number] [address] [place] [address] Phil Franklin DO,FCAP Sodium [Moles/Vol] 140 mmol/L Normal 136-145 Dori martínez [facility] Comment on above: Order Comment: Speci men Type: Unknown Relevant Clinical Information: Altered mental status, hypoglycemia, hypothermia Ordering Facility: [facility]-CLIA#[id number] Address: [address] [place] [address] Performed By: #### Aislinn Worthy, CMP #### [facility]-CLIA#[id number] CLIA [id number] [address] [place] [address] Phil Franklin DO,FCAP Urea nitrogen [Mass/Vol] 50 mg/dL High 9- [facility] Comment on above: Order Comment: Speci men Type: Unknown Relevant Clinical Information: Altered mental status, hypoglycemia, hypothermia Ordering Facility: [facility]CLIA#[id number] Address: [address] [place] [address] Performed By: #### Aislinn Worthy, CMP #### [facility]CL[facility]#[id number] CLIA [id number] [address] [place] [address] Phil Franklin DO,FCAP Eosinophils Auto (Bld) [#/Vo l]Ordered By: Helen Jovel on 08-03-2023 Eosinophils (Bld) [#/Vol] 0.31 10*3/uL 0.00-0.50 [facility] Eosinophils/100 WBC Auto (Bl d)Ordered By: Helen Jovel on 08-03-2023 Eosinophils/100 WBC (Bld) 3.0 % 0.0-5.8 [facility] Comment on above: Delta: 2.0 on Erythrocyte distribution wid th Auto (RBC) [Ratio]Ordered By: Helen Jovel on 08-03-2023 Erythrocyte distribution width (RBC) [Ratio] 13.2 % 11.6-14.8 [facility] Glomerular filtration rate ( GFR) estimation/1.73 sq m using creatinine measurement wiOrdered By: Helen Jovel on 08-03-2023 GFR/1.73 sq M.predicted CKD-EPI (S/P/Bld) [Vol rate/Area] 31 mL/min >60 [facility] Comment on above: K/DOQI Guideline:Sta ge 1 [...] [Mass/Vol] 339 mg/dL High 70-110 Dori martínez [facility] Comment on above: Order Comment: Speci men Type: Unknown Relevant Clinical Information: Altered mental status, hypoglycemia, hypothermia Ordering Facility: [facility]CLIA#[id number] Address: [address] [place] [address] Performed By: #### Aislinn Worthy, CMP #### [facility]CLIA#[id number] CLIA [id number] [address] [place] [address] Phil Franklin, DO,FCAP Glucose [Mass/Vol] 165 mg/dL High 70-110 Dori martínez [facility] Comment on above: Order Comment: Speci men Type: Unknown Relevant Clinical Information: Altered mental status, hypoglycemia, hypothermia Ordering Facility: [facility] Address: , , Performed By: #### G LUCOMETER #### [facility] Glucose [Mass/Vol] 381 mg/dL High 70-110 Dori martínez [facility] Comment on above: Order Comment: Speci men Type: Unknown Relevant Clinical Information: Altered mental status, hypoglycemia, hypothermia Ordering Facility: [facility] Address: , , Performed By: #### G LUCOMETER #### [facility] Glucose Glucometer (BldC) [M ass/Vol]Ordered By: Harjeet Ruelas on 08-03-2023 Glucose [Mass/Vol] 339 mg/dL 70-110 Dori [facility] Hematocrit Auto (Bld) [Volum e fraction]Ordered By: Helen Jovel on 08-03-2023 Hematocrit (Bld) [Volume fraction] 34.3 % 41.0-53.0 [facility] Laboratory - Chemistry and C hemistry - challengeOrdered By: Helen Jovel on 08-03-2023 Anion gap [Moles/Vol] 12 mmol/L 7-17 [facility] Lymphocytes/100 WBC Auto (Bl d)Ordered By: Helen Jovel on 08-03-2023 Lymphocytes/100 WBC (Bld) 12.2 % 13.4-45.1 [facility] Comment on above: Delta: 6.3 on -4 MCH Auto (RBC) [Entitic mass ]Ordered By: Helen Jovel on 08-03-2023 MCH (RBC) [Entitic mass] 31.5 pg 27.2-33.0 [facility] MCHC Auto (RBC) [Mass/Vol]Or dered By: Helen Jovel on 08-03-2023 MCHC (RBC) [Mass/Vol] 34.1 g/dL 31.9-35.1 [facility] MCV (mean corpuscular volume ) determinationOrdered By: Helen Jovel on 08-03-2023 MCV (RBC) [Entitic vol] 92.5 fL 81.7-97.1 S [facility] Comment on above: Delta: 89.8 on 08/02 Magnesiumon 08-03-2023 Magnesium [Mass/Vol] 1.9 mg/dL Normal 1.6-2.6 [facility] Comment on above: Order Comment: Speci men Type: Unknown Relevant Clinical Information: Altered mental status, hypoglycemia, hypothermia Ordering Facility: [facility]CLIA#[id number] Address: [address] [place] [address] Performed By: #### M Deacon, CMP #### [facility]CLIA#[id number] CLIA [id number] [address] [place] [address] Phil Franklin DO,JANET Monocytes Auto (Bld) [#/Vol] Ordered By: Helen Jovel on 08-03-2023 Monocytes (Bld) [#/Vol] 0.77 10*3/uL 0.30-0.90 [facility] Comment on above: Delta: 0.50 on 08/02 Monocytes/100 WBC Auto (Bld) Ordered By: Helen Jovel on 08-03-2023 Monocytes/100 WBC (Bld) 7.5 % 4.0-12.7 S [facility] Comment on above: Delta: 3.4 on Neutrophils Auto (Bld) [#/Vo l]Ordered By: Helen Jovel on 08-03-2023 Neutrophils (Bld) [#/Vol] 7.89 10*3/uL 1.70-7.00 [facility] Comment on above: Delta: 12.71 on 07/15 Neutrophils/100 WBC Auto (Bl d)Ordered By: Helen Jovel on 08-03-2023 Neutrophils/100 WBC (Bld) 76.6 % 41.1-75.9 [facility] No Panel InformationOrdered By: Helen Jovel on 10-21-2023 Pharmacy Creatinine Clearance (Chem 36 [facility] Platelet mean volume Auto (B ld) [Entitic vol]Ordered By: Helen Jovel on 08-03-2023 Platelet mean volume (Bld) [Entitic vol] 11.3 fL 8.6-12.2 [facility] Platelets Auto (Bld) [#/Vol] Ordered By: Helen Jovel on 08-03-2023 Platelets (Bld) [#/Vol] 220 10*3/uL 133-425 [facility] RBC Auto (Bld) [#/Vol]Ordere d By: Helen Jovel on 08-03-2023 RBC (Bld) [#/Vol] 3.71 10*6/uL 3.90-5.90 [facility] Serum or plasma alanine walton otransferase measurement with P-5'-P (enzymatic activity/Ordered By: Helen Jovel on 08-03-2023 ALT With P-5'-P [Catalytic activity/Vol] 16 U/L 10-49 [facility] Serum or plasma albumin regi urement by bromocresol purple (BCP) dye binding method (mOrdered By: Helen Jovel on 08-03-2023 Albumin BCP dye [Mass/Vol] 2.9 g/dL 3.4-5.0 [facility] Serum or plasma alkaline mari sphatase measurement (enzymatic activity/volume)Ordered By: Helen Jovel on 08-03-2023 ALP [Catalytic activity/Vol] 100 U/L 46-116 [facility] Serum or plasma aspartate am inotransferase measurement with P-5'-P (enzymatic activitOrdered By: Helen Jovel on 08-03-2023 AST With P-5'-P [Catalytic activity/Vol] 16 U/L 0-33 [facility] Serum or plasma calcium regi urement (mass/volume)Ordered By: Helen Jovel on 08-03-2023 Calcium [Mass/Vol] 8.2 mg/dL 8.3-10.6 [facility] Serum or plasma chloride taryn surement (moles/volume)Ordered By: Helen Jovel on 08-03-2023 Chloride [Moles/Vol] 111 mmol/L 98-107 [facility] Serum or plasma creatinine m easurement (mass/volume)Ordered By: Helen Jovel on 08-03-2023 Creatinine [Mass/Vol] 2.348 mg/dL 0.70-1.30 [facility] Serum or plasma glucose regi urement (mass/volume)Ordered By: Helen Jovel on 08-03-2023 Glucose [Mass/Vol] 147 mg/dL 74-106 Dori martínez [facility] Comment on above: Delta: 30 on 3-0424 Serum or plasma magnesium me asurement (mass/volume)Ordered By: Helen Jovel on 08-03-2023 Magnesium [Mass/Vol] 1.9 mg/dL 1.6-2.6 [facility] Serum or plasma potassium me asurement (moles/volume)Ordered By: Helen Jovel on 08-03-2023 Potassium [Moles/Vol] 4.6 mmol/L 3.5-5.1 [facility] Serum or plasma sodium measu rement (moles/volume)Ordered By: Helen Jovel on 08-03-2023 Sodium [Moles/Vol] 140 mmol/L 136-145 Dori martínez [facility] Serum or plasma total biliru bin measurement (mass/volume)Ordered By: Helen Jovel on 08-03-2023 Bilirubin [Mass/Vol] 0.3 mg/dL 0.3-1.2 [facility] Serum or plasma total carbon dioxide measurement (moles/volume)Ordered By: Helen Jovel on 08-03-2023 CO2 [Moles/Vol] 22 mmol/L [facility] Serum or plasma urea nitroge n measurement (mass/volume)Ordered By: Helen Jovel on 08-03-2023 Urea nitrogen [Mass/Vol] 50 mg/dL 07-06 [facility] Serum total protein measurem ent (mass/volume)Ordered By: Helen Jovel on 08-03-2023 Protein [Mass/Vol] 5.4 g/dL 5.7-8.2 Dori [facility] WBC Auto (Bld) [#/Vol]Ordere d By: Helen Jovel on 08-03-2023 WBC (Bld) [#/Vol] 10.3 10*3/uL 4.5-11.0 [facility] Comment on above: Delta: 14.5 on 08/02-423 Absolute lymphocyte countOrd ered By: Christopher Santiago on 08-02-2023 Lymphocytes Auto (Unsp spec) [#/Vol] 0.92 10*3/uL 0.80-3.30 [facility] Amphetamine Screen Ql (U)Ord ered By: Helen Jovel on 08-02-2023 Amphetamines Ql (U) Not detected None Detect [facility] Comment on above: Cutoff: 500ng/mL Appearance urOrdered By: Lety Jovel on 08-02-2023 Appearance (U) Clear Clear [facility] Arterial Blood Gason 023 Glucose [Mass/Vol] 39 mg/dL Critically low 70-[address] [facility] Comment on above: Order Comment: Speci men Type: Unknown Relevant Clinical Information: low gluc Ordering Facility: [facility]CLIA#[id number] Address: [address] [place] [address] Performed By: #### A BG #### [facility]CL[facility]#[id number] CLIA [id number] [address] [place] [address] Phil Franklin DO,FCAP Hemoglobin (Bld) [Mass/Vol] 14.0 g/dL Normal 12.2-18.1 [facility] Comment on above: Order Comment: Speci men Type: Unknown Relevant Clinical Information: low gluc Ordering Facility: [facility]CLIA#[id number] Address: [address] [place] [address] Performed By: #### A BG #### [facility]CLIA#[id number] CLIA [id number] [address] [place] [address] Phil Franklin DO,FCAP Normalized Ionized Calcium 1.19 mmol/L Normal 1.01-1.33 [facility] Comment on above: Order Comment: Speci men Type: Unknown Relevant Clinical Information: low gluc Ordering Facility: [facility]CLIA#[id number] Address: [address] [place] [address] Performed By: #### A BG #### [facility]CLIA#[id number] CLIA [id number] [address] [place] [address] Phil Franklin, DO,FCAP Arterial Blood Methemoglobin 0.3 % Normal 0.0-0.3 [facility] Comment on above: Order Comment: Speci men Type: Unknown Relevant Clinical Information: low gluc Ordering Facility: [facility]CLIA#[id number] Address: [address] [place] [address] Performed By: #### A BG #### [facility]CLIA#[id number] CLIA [id number] [address] [place] [address] Phil Franklin, DO,FCAP Arterial Lactate 0.7 mmol/L Normal 0.5-1.6 [facility] Comment on above: Order Comment: Speci men Type: Unknown Relevant Clinical Information: low gluc Ordering Facility: [facility]CLIA#[id number] Address: [address] [place] [address] Performed By: #### A BG #### [facility]#[id number] CLIA [id number] [address] [place] [address] Phil Franklin, DO,FCAP Base Excess ABG -3.6 mmol/L Normal [facility] Comment on above: Order Comment: Speci men Type: Unknown Relevant Clinical Information: low gluc Ordering Facility: [facility]-CLIA#[id number] Address: [address] [place] [address] Performed By: #### A BG #### [facility]CL[facility]#[id number] CLIA [id number] [address] [place] [address] Vincrony Franklin, DO,FCAP Carboxyhemoglobin 4.1 % High 0.1-2.5 [facility] Comment on above: Order Comment: Speci men Type: Unknown Relevant Clinical Information: low gluc Ordering Facility: [facility]CLIA#[id number] Address: [address] [place] [address] Performed By: #### A BG #### [facility]#[id number] CLIA [id number] [address] [place] [address] Phil Franklin DO,FCAP Fractionated Inspired Oxygen 21 % Normal [facility] Comment on above: Order Comment: Speci men Type: Unknown Relevant Clinical Information: low gluc Ordering Facility: [facility]CLIA#[id number] Address: [address] [place] [address] Performed By: #### A BG #### [facility]CLIA#[id number] CLIA [id number] [address] [place] [address] Phil Franklin DO,FCAP HCO3 (Bld) [Moles/Vol] 22 mmol/L Normal 22-26 [facility] Comment on above: Order Comment: Speci men Type: Unknown Relevant Clinical Information: low gluc Ordering Facility: [facility]CLIA#[id number] Address: [address] [place] [address] Performed By: #### A BG #### [facility]IA#[id number] CLIA [id number] [address] [place] [address] Phil Franklin DO,FCAP Oxygen Content ABG 17.9 mL/dL Normal 17-100 [facility] Comment on above: Order Comment: Speci men Type: Unknown Relevant Clinical Information: low gluc Ordering Facility: [facility]CLIA#[id number] Address: [address] [place] [address] Performed By: #### A BG #### [facility]#[id number] CLIA [id number] [address] [place] [address] Phil Dialsi, DO,FCAP Oxygen Saturation ABG 95.1 % Low 96-97 [facility] Comment on above: Order Comment: Speci men Type: Unknown Relevant Clinical Information: low gluc Ordering Facility: [facility]CLIA#[id number] Address: [address] [place] [address] Performed By: #### A BG #### [facility]CLIA#[id number] CLIA [id number] [address] [place] [address] Phil Franklin, DO,FCAP PCO2 ABG 41 mm[Hg] Normal 32-53 [facility] Comment on above: Order Comment: Speci men Type: Unknown Relevant Clinical Information: low gluc Ordering Facility: [facility]CLIA#[id number] Address: [address] [place] [address] Performed By: #### A BG #### [facility]CLIA#[id number] CLIA [id number] [address] [place] [address] Vincrony Dialsi, DO,FCAP PO2 ABG 82.2 mm[Hg] Normal 80-110 [facility] Comment on above: Order Comment: Speci men Type: Unknown Relevant Clinical Information: low gluc Ordering Facility: [facility]CLIA#[id number] Address: [address] [place] [address] Performed By: #### A BG #### [facility]#[id number] CLIA [id number] [address] [place] [address] Phil Dialsi, DO,FCAP Potassium [Moles/Vol] 4.5 mmol/L Normal 3.5-5.1 [facility] Comment on above: Order Comment: Speci men Type: Unknown Relevant Clinical Information: low gluc Ordering Facility: [facility]CLIA#[id number] Address: [address] [place] [address] Performed By: #### A BG #### [facility]#[id number] CLIA [id number] [address] [place] [address] Phil Franklin DO,FCAP Sodium [Moles/Vol] 139 mmol/L Normal 136-145 [facility] Comment on above: Order Comment: Speci men Type: Unknown Relevant Clinical Information: low gluc Ordering Facility: [facility]CLIA#[id number] Address: [address] [place] [address] Performed By: #### A BG #### [facility]#[id number] CLIA [id number] [address] [place] [address] Phil Franklin DO,FCAP Arterial Blood pH 7.34 Low 7.35-7.45 [facility] Comment on above: Order Comment: Speci men Type: Unknown Relevant Clinical Information: low gluc Ordering Facility: [facility]CLIA#[id number] Address: [address] [place] [address] Performed By: #### A BG #### [facility]#[id number] CLIA [id number] [address] [place] [address] Phil Franklin DO,FCAP Arterial blood methemoglobin /total hemoglobinOrdered By: Christopher Santiago on 08-02-2023 Methemoglobin (BldA) [Mass fraction] 0.3 % 0.0-0.3 [facility] Arterial blood oxygen measur ementOrdered By: Christopher Santiago on 08-02-2023 Oxygen content (BldA) [Moles/Vol] 17.9 mL/dL 17-100 [facility] Arterial whole blood lactic acid measurement (moles/volume)Ordered By: Christopher Santiago on 08-02-2023 Lactate (BldA) [Moles/Vol] 0.7 mmol/L 0.5-1.6 [facility] Automated bacteria count in urine sediment (number/area)Ordered By: Helen Jovel on 08-02-2023 Bacteria Auto (Urine sed) [#/Area] None None [facility] Automated erythrocytes count in urine sediment (number/area)Ordered By: Helen Jovel on 08-02-2023 RBC Auto (Urine sed) [#/Area] 1 /HPF 0-5 [facility] Automated non-squamous epith elial cells count in urine sediment (number/area)Ordered By: Helen Jovel on 08-02-2023 Epithelial cells.non-squamous Auto (Urine sed) [#/Area] 0 /HPF 0-4 [facility] Automated urine leukocytes c ount (number/volume)Ordered By: Helen Jovel on 08-02-2023 WBC Auto (U) [#/Vol] 0 /HPF 0-4 [facility] Base excess Calc (BldA) [Mol es/Vol]Ordered By: Christopher Santiago on 08-02-2023 Base excess Calc (Bld) [Moles/Vol] -3.6000 mmol/L [facility] Basic Metabolic Panelon 07-15 Glucose [Mass/Vol] 30 mg/dL Critically low 74-[address] [facility] Comment on above: Order Comment: Speci men Type: Unknown Relevant Clinical Information: Altered mental status, hypoglycemia, hypothermia Ordering Facility: [facility]CLIA#[id number] Address: [address] [place] [address] Performed By: #### Aislinn Worthy, CMP #### [facility]#[id number] CLIA [id number] [address] [place] [address] Phil Franklin DO,FCAP Anion gap [Moles/Vol] 11 mmol/L Normal 7-17 [facility] Comment on above: Order Comment: Speci men Type: Unknown Relevant Clinical Information: Altered mental status, hypoglycemia, hypothermia Ordering Facility: [facility]CLIA#[id number] Address: [address] [place] [address] Performed By: #### Aislinn Worthy, CMP #### [facility]#[id number] CLIA [id number] [address] [place] [address] Phil Franklin DO,FCAP Calcium [Mass/Vol] 9.4 mg/dL Normal 8.3-10.6 [facility] Comment on above: Order Comment: Speci men Type: Unknown Relevant Clinical Information: Altered mental status, hypoglycemia, hypothermia Ordering Facility: [facility]IA#[id number] Address: [address] [place] [address] Performed By: #### Aislinn Worthy, CMP #### [facility]#[id number] CLIA [id number] [address] [place] [address] Vincent Randaisi, DO,FCAP Chloride [Moles/Vol] 106 mmol/L Normal 98-107 [facility] Comment on above: Order Comment: Speci men Type: Unknown Relevant Clinical Information: Altered mental status, hypoglycemia, hypothermia Ordering Facility: [facility]CLIA#[id number] Address: [address] [place] [address] Performed By: #### Aislinn Worthy, CMP #### [facility]#[id number] CLIA [id number] [address] [place] [address] Vincent Randaisi, DO,FCAP CO2 [Moles/Vol] 26 mmol/L Normal 20-31 [facility] Comment on above: Order Comment: Speci men Type: Unknown Relevant Clinical Information: Altered mental status, hypoglycemia, hypothermia Ordering Facility: [facility]#[id number] Address: [address] [place] [address] Performed By: #### Aislinn Worthy, CMP #### [facility]#[id number] CLIA [id number] [address] [place] [address] Vincent Randaisi, DO,FCAP Creatinine [Mass/Vol] 2.585 mg/dL High 0.70-1.30 [facility] Comment on above: Order Comment: Speci men Type: Unknown Relevant Clinical Information: Altered mental status, hypoglycemia, hypothermia Ordering Facility: [facility]CLIA#[id number] Address: [address] [place] [address] Performed By: #### Aislinn Worthy, CMP #### [facility]#[id number] CLIA [id number] [address] [place] [address] Phil Franklin DO,FCAP Creatinine Clr Calc Pharmacy 32 Normal [facility] Comment on above: Order Comment: Speci men Type: Unknown Relevant Clinical Information: Altered mental status, hypoglycemia, hypothermia Ordering Facility: [facility]IA#[id number] Address: [address] [place] [address] Performed By: #### Aislinn Worthy, CMP #### [facility]#[id number] CLIA [id number] [address] [place] [address] Phil Franklin DO,FCAP GFR/1.73 sq M.predicted MDRD (S/P/Bld) [Vol rate/Area] 28 mL/min/{1.73_m2} [facility] Comment on above: Order Comment: Speci men Type: Unknown Relevant Clinical Information: Altered mental status, hypoglycemia, hypothermia Ordering Facility: [facility]CL[facility]#[id number] Address: [address] [place] [address] Result Comment: K/DO QI Guideline: Stage 1 [...] Performed By: #### Aislinn Worthy, CMP #### [facility]#[id number] CLIA [id number] [address] [place] [address] Phil Franklin, DO,FCAP Potassium [Moles/Vol] 4.2 mmol/L Normal 3.5-5.1 [facility] Comment on above: Order Comment: Speci men Type: Unknown Relevant Clinical Information: Altered mental status, hypoglycemia, hypothermia Ordering Facility: [facility]IA#[id number] Address: [address] [place] [address] Performed By: #### Aislinn Worthy, CMP #### [facility]#[id number] CLIA [id number] [address] [place] [address] Phil Franklin DO,FCAP Sodium [Moles/Vol] 139 mmol/L Normal 136-145 [facility] Comment on above: Order Comment: Speci men Type: Unknown Relevant Clinical Information: Altered mental status, hypoglycemia, hypothermia Ordering Facility: [facility]IA#[id number] Address: [address] [place] [address] Performed By: #### M G, CMP #### [facility]#[id number] CLIA [id number] [address] [place] [address] Phil Franklin DO,FCAP Urea nitrogen [Mass/Vol] 48 mg/dL High 9-23 [facility] Comment on above: Order Comment: Speci men Type: Unknown Relevant Clinical Information: Altered mental status, hypoglycemia, hypothermia Ordering Facility: [facility]IA#[id number] Address: [address] [place] [address] Performed By: #### Aislinn G, CMP #### [facility]#[id number] CLIA [id number] [address] [place] [address] Phil Franklin, DO,FCAP Basophils Auto (Bld) [#/Vol] Ordered By: Christopher Santiago on 08-02-2023 Basophils (Bld) [#/Vol] 0.04 10*3/uL 0.00-0.10 [facility] Basophils/100 WBC Auto (Bld) Ordered By: Christopher Santiago on 08-02-2023 Basophils/100 WBC (Bld) 0.3 % 0.0-1.3 S [facility] Bilirubin Auto test strip Ql (U)Ordered By: Helen Jovel on 08-02-2023 Bilirubin Ql (U) Negative Negative [facility] Blood hemoglobin measurement (mass/volume)Ordered By: Christopher Santiago on 08-02-2023 Hemoglobin (Bld) [Mass/Vol] 14.0 g/dL 13.5-17.7 [facility] C Peptideon 08-02-2023 C Peptide 2.00 ng/mL Normal 0.48-5.05 [facility] Comment on above: Order Comment: Speci men Type: Unknown Relevant Clinical Information: Altered mental status, hypoglycemia, hypothermia Ordering Facility: [facility]IA#[id number] Address: [address] [place] [address] Performed By: #### M G, CMP #### [facility]#[id number] CLIA [id number] [address] [place] [address] Phil Franklin DO,FCAP CBC w/ Auto Diffon 3 Basophils Absolute Auto 0.04 10*3/uL Normal 0.00-0.10 [facility] Comment on above: Order Comment: Speci men Type: Unknown Relevant Clinical Information: low gluc Ordering Facility: [facility]#[id number] Address: [address] [place] [address] Performed By: #### C BC #### [facility]#[id number] CLIA [id number] [address] [place] [address] Phil Franklin DO,FCAP Basophils/100 WBC (Bld) 0.3 % Normal 0.0-1.3 S [facility] Comment on above: Order Comment: Speci men Type: Unknown Relevant Clinical Information: low gluc Ordering Facility: [facility]CLIA#[id number] Address: [address] [place] [address] Performed By: #### C BC #### [facility]#[id number] CLIA [id number] [address] [place] [address] Phil Franklin DO,FCAP Eosinophils (Bld) [#/Vol] 0.29 10*3/uL Normal 0.00-0.50 [facility] Comment on above: Order Comment: Speci men Type: Unknown Relevant Clinical Information: low gluc Ordering Facility: [facility]-CLIA#[id number] Address: [address] [place] [address] Performed By: #### C BC #### [facility]CLIA#[id number] CLIA [id number] [address] [place] [address] Phil Franklin DO,FCAP Eosinophils/100 WBC (Bld) 2.0 % Normal 0.0-5.8 [facility] Comment on above: Order Comment: Speci men Type: Unknown Relevant Clinical Information: low gluc Ordering Facility: [facility]-CLIA#[id number] Address: [address] [place] [address] Performed By: #### C BC #### [facility]-CLIA#[id number] CLIA [id number] [address] [place] [address] Phil Franklin DO,FCAP Erythrocyte distribution width (RBC) [Ratio] 13.1 % Normal 11.6-14.8 [facility] Comment on above: Order Comment: Speci men Type: Unknown Relevant Clinical Information: low gluc Ordering Facility: [facility]-CLIA#[id number] Address: [address] [place] [address] Performed By: #### C BC #### [facility]-CLIA#[id number] CLIA [id number] [address] [place] [address] Phil Franklin DO,FCAP Hematocrit (Bld) [Volume fraction] 40.5 % Low 41.0-53.0 [facility] Comment on above: Order Comment: Speci men Type: Unknown Relevant Clinical Information: low gluc Ordering Facility: [facility]-CLIA#[id number] Address: [address] [place] [address] Performed By: #### C BC #### [facility]CLIA#[id number] CLIA [id number] [address] [place] [address] Vincent Randaisi, DO,FCAP Hemoglobin (Bld) [Mass/Vol] 14.0 g/dL Normal 13.5-17.7 [facility] Comment on above: Order Comment: Speci men Type: Unknown Relevant Clinical Information: low gluc Ordering Facility: [facility]-CLIA#[id number] Address: [address] [place] [address] Performed By: #### C BC #### [facility]-CLIA#[id number] CLIA [id number] [address] [place] [address] Vincent Randaisi, DO,FCAP Lymphocytes (Bld) [#/Vol] 0.92 10*3/uL Normal 0.80-3.30 [facility] Comment on above: Order Comment: Speci men Type: Unknown Relevant Clinical Information: low gluc Ordering Facility: [facility]-CLIA#[id number] Address: [address] [place] [address] Performed By: #### C BC #### [facility]CLIA#[id number] CLIA [id number] [address] [place] [address] Vincent Randaisi, DO,FCAP Lymphocytes/100 WBC (Bld) 6.3 % Low 13.4-45.1 [facility] Comment on above: Order Comment: Speci men Type: Unknown Relevant Clinical Information: low gluc Ordering Facility: [facility]-CLIA#[id number] Address: [address] [place] [address] Performed By: #### C BC #### [facility]-CLIA#[id number] CLIA [id number] [address] [place] [address] Phil Franklin DO,FCAP MCH (RBC) [Entitic mass] 31.0 pg Normal 27.2-33.0 [facility] Comment on above: Order Comment: Speci men Type: Unknown Relevant Clinical Information: low gluc Ordering Facility: [facility]-CLIA#[id number] Address: [address] [place] [address] Performed By: #### C BC #### [facility]CLIA#[id number] CLIA [id number] [address] [place] [address] Phil Franklin DOFCAP MCHC (RBC) [Mass/Vol] 34.6 g/dL Normal 31.9-35.1 [facility] Comment on above: Order Comment: Speci men Type: Unknown Relevant Clinical Information: low gluc Ordering Facility: [facility]-CLIA#[id number] Address: [address] [place] [address] Performed By: #### C BC #### [facility]CLIA#[id number] CLIA [id number] [address] [place] [address] Phil Franklin DOFCAP MCV (RBC) [Entitic vol] 89.8 fL Normal 81.7-97.1 [facility] Comment on above: Order Comment: Speci men Type: Unknown Relevant Clinical Information: low gluc Ordering Facility: [facility]-CLIA#[id number] Address: [address] [place] [address] Performed By: #### C BC #### [facility]CLIA#[id number] CLIA [id number] [address] [place] [address] Phil Franklin DO,FCAP Monocytes (Bld) [#/Vol] 0.50 10*3/uL Normal 0.30-0.90 [facility] Comment on above: Order Comment: Speci men Type: Unknown Relevant Clinical Information: low gluc Ordering Facility: [facility]-CLIA#[id number] Address: [address] [place] [address] Performed By: #### C BC #### [facility]CLIA#[id number] CLIA [id number] [address] [place] [address] Phil Franklin DO,FCAP Monocytes/100 WBC (Bld) 3.4 % Low 4.0-12.7 [facility] Comment on above: Order Comment: Speci men Type: Unknown Relevant Clinical Information: low gluc Ordering Facility: [facility]-CLIA#[id number] Address: [address] [place] [address] Performed By: #### C BC #### [facility]CLIA#[id number] CLIA [id number] [address] [place] [address] Phil Franklin DO,FCAP Neutrophils Absolute Auto 12.71 10*3/uL High 1.70-7.00 [facility] Comment on above: Order Comment: Speci men Type: Unknown Relevant Clinical Information: low gluc Ordering Facility: [facility]-CLIA#[id number] Address: [address] [place] [address] Performed By: #### C BC #### [facility]CLIA#[id number] CLIA [id number] [address] [place] [address] Phil Franklin DO,FCAP Neutrophils/100 WBC (Bld) 87.4 % High 41.1-75.9 [facility] Comment on above: Order Comment: Speci men Type: Unknown Relevant Clinical Information: low gluc Ordering Facility: [facility]-CLIA#[id number] Address: [address] [place] [address] Performed By: #### C BC #### [facility]CLIA#[id number] CLIA [id number] [address] [place] [address] Phil Franklin DO,FCAP Platelet mean volume (Bld) [Entitic vol] 11.4 fL Normal 8.6-12.2 [facility] Comment on above: Order Comment: Speci men Type: Unknown Relevant Clinical Information: low gluc Ordering Facility: [facility]-CLIA#[id number] Address: [address] [place] [address] Performed By: #### C BC #### [facility]CLIA#[id number] CLIA [id number] [address] [place] [address] Vincent Jazmineaisi, DO,FCAP Platelets (Bld) [#/Vol] 285 10*3/uL Normal 133-425 [facility] Comment on above: Order Comment: Speci men Type: Unknown Relevant Clinical Information: low gluc Ordering Facility: [facility]-CLIA#[id number] Address: [address] [place] [address] Performed By: #### C BC #### [facility]CLIA#[id number] CLIA [id number] [address] [place] [address] Vincrony Dialsi, DO,FCAP RBC (Bld) [#/Vol] 4.51 10*6/uL Normal 3.90-5.90 [facility] Comment on above: Order Comment: Speci men Type: Unknown Relevant Clinical Information: low gluc Ordering Facility: [facility]-CLIA#[id number] Address: [address] [place] [address] Performed By: #### C BC #### [facility]CLIA#[id number] CLIA [id number] [address] [place] [address] Vincent Randaisi, DO,FCAP WBC (Bld) [#/Vol] 14.5 10*3/uL High 4.5-11.0 [facility] Comment on above: Order Comment: Speci men Type: Unknown Relevant Clinical Information: low gluc Ordering Facility: [facility]-CLIA#[id number] Address: [address] [place] [address] Performed By: #### C BC #### [facility]CLIA#[id number] CLIA [id number] [address] [place] [address] Phil Franklin DO,FCAP CO2 (BldA) [Partial pressure ]Ordered By: Christopher Santiago on 08-02-2023 CO2 (Bld) [Partial pressure] 41 mm[Hg] 32-[address] [facility] CT biopsyOrdered By: Charo Jovel on 08-02-2023 Benzodiazepines Ql (U) Not detected None Detect [facility] Comment on above: Cutoff: 200ng/mL Cocaine Ql (U) Not detected None Detect [facility] Comment on above: Cutoff: 150ng/mL CT biopsy Not detected None Detect [facility] Comment on above: Cutoff: 200ng/mL CTHEADWOon 08-02-[address] [place] [id number] CT Scan Report Signed Patient: Chandler Minor MR#: [id number] : 1970 Acct: [id number] Age/Sex: 53 / M ADM Date: 08/02/23 Loc: ER. Attending Dr: Ordering Physician: Christopher Santiago D.O. Date of Service: Procedure(s): CT head-brain wo con Accession Number(s): [id number] cc: Christopher Santiago D.O. CT HEAD TECHNICAL: [...] Signed By: Chava Hernandez D.O. 08/02/23 0514 [id number] Normal [facility] CarboxyhemoglobinOrdered By: Christopher Santiago on 08-02-2023 Carboxyhemoglobin (Bld) [Mass/Vol] 4.1 % 0.1-2.5 [facility] Cholesterol in LDL Calc [Mas s/Vol]Ordered By: Marcelino Abel on 08-02-2023 Cholesterol in LDL [Mass/Vol] 28 mg/dL <100 [facility] Determination of inhaled oxy gen concentration (volume fraction)Ordered By: Christopher Santiago on 08-02-2023 Inhaled oxygen concentration 21 % [facility] Direct bilirubin measurement Ordered By: Helen Jovel on 08-02-2023 Bilirubin.direct [Mass/Vol] 0.1 mg/dL 0.0-0.3 [facility] Emergency Department Noteon 08-02-2023 Emergency Department Note [facility] [address] Emergency Department Note Signed Patient: Chandler Minor MR#: [id number] : 1970 Acct: [id number] Age/Sex: 53 / M Date of Service: [...] Unobtainable: Yes unobtainable due to mental status [facility] Medical History (Updated 08/02/23 @ 05:23 by Christopher Santiago DO) Diabetes Social History Advance Directives: No Advance Directives Information Provided: No Advance Directives on File: No Would like to be referred to [facility] Sp[facility] for info?: No Smoking Status: Never smoker [...] Motor Response: Withdraws in response to pain [place] coma scale total score: 6 Sensorium/orientation: lethargic [...] Vital S (more content not included)... Normal [facility] Eosinophils Auto (Bld) [#/Vo l]Ordered By: Christopher Santiago on 08-02-2023 Eosinophils (Bld) [#/Vol] 0.29 10*3/uL 0.00-0.50 [facility] Eosinophils/100 WBC Auto (Bl d)Ordered By: Christopher Santiago on 08-02-2023 Eosinophils/100 WBC (Bld) 2.0 % 0.0-5.8 [facility] Erythrocyte distribution wid th Auto (RBC) [Ratio]Ordered By: Christopher Santiago on 08-02-2023 Erythrocyte distribution width (RBC) [Ratio] 13.1 % 11.6-14.8 [facility] Free T4on 08-02-2023 Free T4 [Mass/Vol] 1.16 ng/dL Normal 0.89-1.76 Dori martínez [facility] Comment on above: Order Comment: Speci men Type: Unknown Relevant Clinical Information: Altered mental status, hypoglycemia, hypothermia Ordering Facility: [facility] Address: , , Performed By: #### G LUCOMETER #### [facility] Glomerular filtration rate ( GFR) estimation/1.73 sq m using creatinine measurement wiOrdered By: Christopher Santiago on 08-02-2023 GFR/1.73 sq M.predicted CKD-EPI (S/P/Bld) [Vol rate/Area] 28 mL/min >60 [facility] Comment on above: K/DOQI Guideline:Sta ge 1 [...] [Mass/Vol] 240 mg/dL High 70-110 Dori martínez [facility] Comment on above: Order Comment: Speci men Type: Unknown Relevant Clinical Information: Altered mental status, hypoglycemia, hypothermia Ordering Facility: [facility]-CLIA#[id number] Address: [address] [place] [address] Performed By: #### Aislinn G, CMP #### [facility]-CLIA#[id number] CLIA [id number] [address] [place] [address] Phil Franklin, DO,FCAP Glucose [Mass/Vol] 110 mg/dL Normal 70-110 [facility] Comment on above: Order Comment: Speci men Type: Unknown Relevant Clinical Information: Altered mental status, hypoglycemia, hypothermia Ordering Facility: [facility]-CLIA#[id number] Address: [address] [place] [address] Performed By: #### Aislinn Worthy, CMP #### [facility]CLIA#[id number] CLIA [id number] [address] [place] [address] Phil Dialsi, DO,FCAP Glucose [Mass/Vol] 117 mg/dL High 70-110 [facility] Comment on above: Order Comment: Speci men Type: Unknown Relevant Clinical Information: Altered mental status, hypoglycemia, hypothermia Ordering Facility: [facility]-CLIA#[id number] Address: [address] [place] [address] Performed By: #### Aislinn G, CMP #### [facility]CLIA#[id number] CLIA [id number] [address] [place] [address] Vincrony Randaisi, DO,FCAP Glucose [Mass/Vol] 124 mg/dL High 70-110 [facility] Comment on above: Order Comment: Speci men Type: Unknown Relevant Clinical Information: Altered mental status, hypoglycemia, hypothermia Ordering Facility: [facility] Address: , , Performed By: #### G LUCOMETER #### [facility] Glucose [Mass/Vol] 105 mg/dL Normal 70-110 [facility] Comment on above: Order Comment: Speci men Type: Unknown Relevant Clinical Information: Altered mental status, hypoglycemia, hypothermia Ordering Facility: [facility]-CLIA#[id number] Address: [address] [place] [address] Performed By: #### Aislinn Worthy, CMP #### [facility]-CLIA#[id number] CLIA [id number] [address] [place] [address] Vincent Randaisi, DO,FCAP Glucose [Mass/Vol] 102 mg/dL Normal 70-110 [facility] Comment on above: Order Comment: Speci men Type: Unknown Relevant Clinical Information: Altered mental status, hypoglycemia, hypothermia Ordering Facility: [facility]-CLIA#[id number] Address: [address] [place] [address] Performed By: #### Aislinn Worthy, CMP #### [facility]CLIA#[id number] CLIA [id number] [address] [place] [address] Vincent Randaisi, DO,FCAP Glucose [Mass/Vol] 97 mg/dL Normal 70-110 [facility] Comment on above: Order Comment: Speci men Type: Unknown Relevant Clinical Information: Altered mental status, hypoglycemia, hypothermia Ordering Facility: [facility]-CLIA#[id number] Address: [address] [place] [address] Performed By: #### Aislinn Worthy, CMP #### [facility]-CLIA#[id number] CLIA [id number] [address] [place] [address] Vincent Randaisi, DO,FCAP Glucose [Mass/Vol] 96 mg/dL Normal 70-110 [facility] Comment on above: Order Comment: Speci men Type: Unknown Relevant Clinical Information: Altered mental status, hypoglycemia, hypothermia Ordering Facility: [facility]-CLIA#[id number] Address: [address] [place] [address] Performed By: #### Aislinn Worthy, CMP #### [facility]CLIA#[id number] CLIA [id number] [address] [place] [address] Vincent Randaisi, DO,FCAP Glucose [Mass/Vol] 111 mg/dL High 70-110 Dori [facility] Comment on above: Order Comment: Speci men Type: Unknown Relevant Clinical Information: Altered mental status, hypoglycemia, hypothermia Ordering Facility: [facility]-CLIA#[id number] Address: [address] [place] [address] Performed By: #### M G, CMP #### [facility]CLIA#[id number] CLIA [id number] [address] [place] [address] Phil Franklin, DO,FCAP Glucose [Mass/Vol] 156 mg/dL High 70-110 Dori martínez [facility] Comment on above: Order Comment: Speci men Type: Unknown Relevant Clinical Information: Altered mental status, hypoglycemia, hypothermia Ordering Facility: [facility] Address: , , Performed By: #### G LUCOMETER #### [facility] Glucose [Mass/Vol] 55 mg/dL Low 70-110 [facility] Comment on above: Order Comment: Speci men Type: Unknown Relevant Clinical Information: low gluc Ordering Facility: [facility] Address: , , Performed By: #### G LUCOMETER #### [facility] Glucose (Bld) [Mass/Vol]Orde red By: Christopher Santiago on 08-02-2023 Glucose [Mass/Vol] 39 mg/dL 70-110 Dori [facility] Glucose Glucometer (BldC) [M ass/Vol]Ordered By: Christopher Santiago on 08-02-2023 Glucose [Mass/Vol] 102 mg/dL 70-110 Dori [facility] HCO3 (BldA) [Moles/Vol]Order ed By: Christopher Santiago on 08-02-2023 HCO3 (Bld) [Moles/Vol] 22 mmol/L 22-26 [facility] Hematocrit Auto (Bld) [Volum e fraction]Ordered By: Christopher Santiago on 08-02-2023 Hematocrit (Bld) [Volume fraction] 40.5 % 41.0-53.0 [facility] Hemoglobin A1Con 08-02-2023 HbA1c (Bld) [Mass fraction] 12.0 % High <5.7 [facility] Comment on above: Order Comment: [...] HbA1c (Bld) [Mass fraction] 12.0 % 0-5.6 [facility] Comment on above: Expected ValuesSugge sted Diagnosis Diabetic >=6.5 (%)Prediabetes 5.7-6.4 (%)Normal <5.7 (%) Hemoglobin Oximetry (BldA) [ Mass/Vol]Ordered By: Christopher Santiago on 08-02-2023 Hemoglobin (Bld) [Mass/Vol] 14.0 g/dL 12.2-18.1 [facility] Hepatic Function Panelon Albumin [Mass/Vol] 3.1 g/dL Low 3.4-5.0 [facility] Comment on above: Order Comment: Speci men Type: Unknown Relevant Clinical Information: Altered mental status, hypoglycemia, hypothermia Ordering Facility: [facility] Address: , , Performed By: #### G LUCOMETER #### [facility]OC ALP [Catalytic activity/Vol] 100 U/L Normal 46-116 [facility] Comment on above: Order Comment: Speci men Type: Unknown Relevant Clinical Information: Altered mental status, hypoglycemia, hypothermia Ordering Facility: [facility] Address: , , Performed By: #### G LUCOMETER #### POC ALT [Catalytic activity/Vol] 14 U/L Normal 10-49 [facility] Comment on above: Order Comment: Speci men Type: Unknown Relevant Clinical Information: Altered mental status, hypoglycemia, hypothermia Ordering Facility: [facility] Address: , , Performed By: #### G LUCOMETER #### POC AST [Catalytic activity/Vol] 18 U/L Normal <34 [facility] Comment on above: Order Comment: Speci men Type: Unknown Relevant Clinical Information: Altered mental status, hypoglycemia, hypothermia Ordering Facility: [facility] Address: , , Performed By: #### G LUCOMETER #### [facility]OC Bilirubin [Mass/Vol] 0.4 mg/dL Normal 0.3-1.2 [facility] Comment on above: Order Comment: Speci men Type: Unknown Relevant Clinical Information: Altered mental status, hypoglycemia, hypothermia Ordering Facility: [facility] Address: , , Performed By: #### G LUCOMETER #### POC Bilirubin.indirect [Mass/Vol] 0.1 mg/dL Normal <0.4 [facility] Comment on above: Order Comment: Speci men Type: Unknown Relevant Clinical Information: Altered mental status, hypoglycemia, hypothermia Ordering Facility: [facility] Address: , , Performed By: #### G LUCOMETER #### [facility] Protein [Mass/Vol] 6.0 g/dL Normal 5.7-8.2 [facility] Comment on above: Order Comment: Speci men Type: Unknown Relevant Clinical Information: Altered mental status, hypoglycemia, hypothermia Ordering Facility: [facility] Address: , , Performed By: #### G LUCOMETER #### [facility] Hyaline casts detection in u rine sediment by light microscopyOrdered By: Helen Jovel on 08-02-2023 Hyaline casts LM Ql (Urine sed) 6 /LPF 0-5 [facility] Internal Med History Physica velasquez 08-02-2023 Internal Med History Physical [facility] [address] [address] Internal Med History Physical Signed Patient: Chandler Minor MR#: [id number] : 1970 Acct: [id number] Age/Sex: 53 / M Date of Service: 08/02/23 [facility]: Helen Jovel M.D. cc: [...] micturition. Patient reports that he came to [place] to see his mom. Patient reports chronic [...] No Would like to be referred to Thread Spinner for info?: No Smoking Status: Current every [...] ORAL PM (more content not included)... Normal [facility] Ketones Auto test strip (U) [Mass/Vol]Ordered By: Helen Jovel on 08-02-2023 Ketones (U) [Mass/Vol] Negative Negative [facility] - Chemistry and C hemistry - challengeOrdered By: Christopher Santiago on 08-02-2023 Anion gap [Moles/Vol] 11 mmol/L 04-29 [facility] Lipid Panelon 08-02-2023 Cholesterol [Mass/Vol] 89 mg/dL Normal <[address] [facility] Comment on above: Order Comment: Speci men Type: Unknown Relevant Clinical Information: Altered mental status, hypoglycemia, hypothermia Ordering Facility: [facility]CLIA#[id number] Address: [address] [place] [address] Performed By: #### L IPID #### [facility]CL[facility]#[id number] CLIA [id number] [address] [place] [address] Phil Franklin DO,FCAP Cholesterol in HDL [Mass/Vol] 32 mg/dL Low 40-60 [facility] Comment on above: Order Comment: Speci men Type: Unknown Relevant Clinical Information: Altered mental status, hypoglycemia, hypothermia Ordering Facility: [facility]CLIA#[id number] Address: [address] [place] [address] Performed By: #### L IPID #### [facility]CLIA#[id number] CLIA [id number] [address] [place] [address] Phil Franklin DO,FCAP Cholesterol in LDL [Mass/Vol] 28 mg/dL Normal <100 [facility] Comment on above: Order Comment: Speci men Type: Unknown Relevant Clinical Information: Altered mental status, hypoglycemia, hypothermia Ordering Facility: [facility]CLIA#[id number] Address: [address] [place] [address] Performed By: #### L IPID #### [facility]CL[facility]#[id number] CLIA [id number] [address] [place] [address] Phil Franklin DO,FCAP Triglyceride [Mass/Vol] 143 mg/dL Normal <149 [facility] Comment on above: Order Comment: Speci men Type: Unknown Relevant Clinical Information: Altered mental status, hypoglycemia, hypothermia Ordering Facility: [facility]CLIA#[id number] Address: [address] [place] [address] Performed By: #### L IPID #### [facility]CLIA#[id number] CLIA [id number] [address] [place] [address] Phil Franklin DO,FCAP Lymphocytes/100 WBC Auto (Bl d)Ordered By: Christopher Santiago on 08-02-2023 Lymphocytes/100 WBC (Bld) 6.3 % 13.4-45.1 [facility] MCH Auto (RBC) [Entitic mass ]Ordered By: Christopher Santiago on 08-02-2023 MCH (RBC) [Entitic mass] 31.0 pg 27.2-33.0 [facility] MCHC Auto (RBC) [Mass/Vol]Or dered By: Christopher Santiago on 08-02-2023 MCHC (RBC) [Mass/Vol] 34.6 g/dL 31.9-35.1 [facility] MCV (mean corpuscular volume ) determinationOrdered By: Christopher Santiago on 08-02-2023 MCV (RBC) [Entitic vol] 89.8 fL 81.7-97.1 [facility] Monocytes Auto (Bld) [#/Vol] Ordered By: Christopher Santiago on 08-02-2023 Monocytes (Bld) [#/Vol] 0.50 10*3/uL 0.30-0.90 [facility] Monocytes/100 WBC Auto (Bld) Ordered By: Christopher Santiago on 08-02-2023 Monocytes/100 WBC (Bld) 3.4 % 4.0-12.7 [facility] Neurology Consult [place] [address] Neurology Consult Note Signed Patient: Chandler Minor MR#: [id number] : 1970 Acct: [id number] Age/Sex: 53 / M Date of Service: 08/02/23 [facility]: Helen Jovel M.D. cc: [...] No Would like to be referred to [facility] Spinner for info?: No Smoking Status: Current every [...] (Jardiance) ergoc (more content not included)... Normal [facility] Neutrophils Auto (Bld) [#/Vo l]Ordered By: Christopher Santiago on 08-02-2023 Neutrophils (Bld) [#/Vol] 12.71 10*3/uL 1.70-7.00 [facility] Neutrophils/100 WBC Auto (Bl d)Ordered By: Christopher Santiago on 08-02-2023 Neutrophils/100 WBC (Bld) 87.4 % 41.1-75.9 [facility] No Panel InformationOrdered By: Helen Jovel on 08-02-2023 Urine Drug Screen Comment. See comment [facility] Comment on above: This method provides only [...] on 08-02-2023 Pharmacy Creatinine Clearance (Chem 32 [facility] Oxygen (BldA) [Partial press ure]Ordered By: Christopher Santiago on 08-02-2023 Oxygen (Bld) [Partial pressure] 82.2 mm[Hg] 80-110 [facility] Platelet mean volume Auto (B ld) [Entitic vol]Ordered By: Christopher Santiago on 08-02-2023 Platelet mean volume (Bld) [Entitic vol] 11.4 fL 8.6-12.2 [facility] Platelets Auto (Bld) [#/Vol] Ordered By: Christopher Santiago on 08-02-2023 Platelets (Bld) [#/Vol] 285 10*3/uL 133-425 [facility] Potassium (Bld) [Moles/Vol]O rdered By: Christopher Santiago on 08-02-2023 Potassium [Moles/Vol] 4.5 mmol/L 3.5-5.1 [facility] Procalcitoninon 08-02-2023 Procalcitonin 0.11 ng/mL Normal <0.10 [facility] Comment on above: Order Comment: Speci [...] The ProHOSP Randomized Controlled Trial. LAMAR 302: 83121 - 1066. Performed By: #### G LUCOMETER #### POC Protein Auto test strip (U) [Mass/Vol]Ordered By: Helen Jovel on 08-02-2023 Protein (U) [Mass/Vol] 300 mg/dL Negative [facility] RBC Auto (Bld) [#/Vol]Ordere d By: Christopher Santiago on 08-02-2023 RBC (Bld) [#/Vol] 4.51 10*6/uL 3.90-5.90 [facility] Screening urine 6-acetylmorp dirk measurementOrdered By: Helen Jovel on 08-02-2023 6-Monoacetylmorphine (6-ELTON) Screen Ql (U) Not detected None Detect [facility] Comment on above: Cutoff: 10ng/mL Screening urine cannabinoids detection using 50 ng/mL cutoffOrdered By: Helen Jovel on 08-02-2023 Tetrahydrocannabinol Screen method >50 ng/mL Ql (U) Not detected None Detect [facility] Comment on above: Cutoff: 50ng/mL Screening urine opiates test Ordered By: Helen Jovel on 08-02-2023 Opiates Screen Ql (U) Not detected None Detect [facility] Comment on above: Cutoff: 300ng/mL Serum or plasma C peptide me asurement (mass/volume)Ordered By: Helen Jovel on 08-02-2023 C peptide [Mass/Vol] 2.00 ng/mL 0.48-5.05 [facility] Serum or plasma alanine walton otransferase measurement with P-5'-P (enzymatic activity/Ordered By: Helen Jovel on 08-02-2023 ALT With P-5'-P [Catalytic activity/Vol] 14 U/L 10-49 [facility] Serum or plasma albumin regi urement by bromocresol purple (BCP) dye binding method (mOrdered By: Helen Jovel on 08-02-2023 Albumin BCP dye [Mass/Vol] 3.1 g/dL 3.4-5.0 [facility] Serum or plasma alkaline mari sphatase measurement (enzymatic activity/volume)Ordered By: Helen Jovel on 08-02-2023 ALP [Catalytic activity/Vol] 100 U/L 46-116 [facility] Serum or plasma aspartate am inotransferase measurement with P-5'-P (enzymatic activitOrdered By: Helen Jovel on 08-02-2023 AST With P-5'-P [Catalytic activity/Vol] 18 U/L 0-33 [facility] Serum or plasma calcium regi urement (mass/volume)Ordered By: Christopher Santiago on 08-02-2023 Calcium [Mass/Vol] 9.4 mg/dL 8.3-10.6 [facility] Serum or plasma chloride taryn surement (moles/volume)Ordered By: Christopher Santiago on 08-02-2023 Chloride [Moles/Vol] 106 mmol/L 98-107 [facility] Serum or plasma cholesterol measurement (mass/volume)Ordered By: Marcelino Abel on 08-02-2023 Cholesterol [Mass/Vol] 89 mg/dL 0-199 [facility] Serum or plasma creatinine m easurement (mass/volume)Ordered By: Christopher Santiago on 08-02-2023 Creatinine [Mass/Vol] 2.585 mg/dL 0.70-1.30 [facility] Serum or plasma free thyroxi ne (FT4) measurement (mass/volume)Ordered By: Helen Jovel on 08-02-2023 Free T4 [Mass/Vol] 1.16 ng/dL 0.89-1.76 [facility] Serum or plasma glucose regi urement (mass/volume)Ordered By: Christopher Santiago on 08-02-2023 Glucose [Mass/Vol] 30 mg/dL 74-106 [facility] Serum or plasma high density lipoprotein (HDL) cholesterol measurementOrdered By: Marcelino Abel on 08-02-2023 Cholesterol in HDL [Mass/Vol] 32 mg/dL 40-60 [facility] Serum or plasma potassium me asurement (moles/volume)Ordered By: Christopher Santiago on 08-02-2023 Potassium [Moles/Vol] 4.2 mmol/L 3.5-5.1 [facility] Serum or plasma sodium measu rement (moles/volume)Ordered By: Christopher Santiago on 08-02-2023 Sodium [Moles/Vol] 139 mmol/L 136-145 [facility] Serum or plasma total biliru bin measurement (mass/volume)Ordered By: Helen Jovel on 08-02-2023 Bilirubin [Mass/Vol] 0.4 mg/dL 0.3-1.2 [facility] Serum or plasma total carbon dioxide measurement (moles/volume)Ordered By: Christopher Santiago on 08-02-2023 CO2 [Moles/Vol] 26 mmol/L [facility] Serum or plasma triglyceride measurement (mass/volume)Ordered By: Marcelino Abel on 08-02-2023 Triglyceride [Mass/Vol] 143 mg/dL <149 [facility] Serum or plasma urea nitroge n measurement (mass/volume)Ordered By: Christopher Santiago on 08-02-2023 Urea nitrogen [Mass/Vol] 48 mg/dL 07-06 [facility] Serum procalcitonin measurem entOrdered By: Helen Jovel on 08-02-2023 Procalcitonin [Mass/Vol] 0.11 ng/mL <0.10 [facility] Comment on above: *Use of Procalcitoni n [...] The ProHOSP Randomized Controlled Trial. LAMAR 302: 19419 - 1066. Serum total protein measurem ent (mass/volume)Ordered By: Helen Jovel on 08-02-2023 Protein [Mass/Vol] 6.0 g/dL 5.7-8.2 [facility] Sodium (Bld) [Moles/Vol]Orde red By: Christopher Santiago on 08-02-2023 Sodium [Moles/Vol] 139 mmol/L 136-145 [facility] TSHon 08-02-2023 TSH Qn 1.144 m[IU]/L Normal 0.550-4.78 0 [facility] Comment on above: Order Comment: Speci men Type: Unknown Relevant Clinical Information: Altered mental status, hypoglycemia, hypothermia Ordering Facility: [facility] Address: , , Performed By: #### G LUCOMETER #### POC TSH DL <= 0.005 mIU/L QnOrde red By: Helen Jovel on 08-02-2023 TSH Qn 1.144 m[IU]/L 0.550-4.78 0 [facility] UA Reflex to Micro and Cultu reon 08-02-2023 Appearance (U) Clear Normal Clear [facility] Comment on above: Order Comment: Speci men Type: Unknown Relevant Clinical Information: Altered mental status, hypoglycemia, hypothermia Ordering Facility: [facility]-CLIA#[id number] Address: [address] [place] [address] Performed By: #### M G, CMP #### [facility]CLIA#[id number] CLIA [id number] [address] [place] [address] Phil Franklin DO,FCAP Bilirubin Urine Negative Normal Negative [facility] Comment on above: Order Comment: Speci men Type: Unknown Relevant Clinical Information: Altered mental status, hypoglycemia, hypothermia Ordering Facility: [facility]-CLIA#[id number] Address: [address] [place] [address] Performed By: #### M G, CMP #### [facility]CL[facility]#[id number] CLIA [id number] [address] [place] [address] Phil Franklin DO,FCAP Blood Urine Trace Abnormal Negative [facility] Comment on above: Order Comment: Speci men Type: Unknown Relevant Clinical Information: Altered mental status, hypoglycemia, hypothermia Ordering Facility: [facility]-CLIA#[id number] Address: [address] [place] [address] Performed By: #### M G, CMP #### [facility]CL[facility]#[id number] CLIA [id number] [address] [place] [address] Phil Franklin DO,FCAP Color (U) Yellow Normal Yellow [facility] Comment on above: Order Comment: Speci men Type: Unknown Relevant Clinical Information: Altered mental status, hypoglycemia, hypothermia Ordering Facility: [facility]CLIA#[id number] Address: [address] [place] [address] Performed By: #### M G, CMP #### [facility]CL[facility]#[id number] CLIA [id number] [address] [place] [address] Phil Franklin DO,FCAP Glucose Urine UA 500 mg/dL Abnormal Negative [facility] Comment on above: Order Comment: Speci men Type: Unknown Relevant Clinical Information: Altered mental status, hypoglycemia, hypothermia Ordering Facility: [facility]CLIA#[id number] Address: [address] [place] [address] Performed By: #### M G, CMP #### [facility]CL[facility]#[id number] CLIA [id number] [address] [place] [address] Phil Franklin, DO,FCAP Ketones Ql (U) Negative Normal Negative [facility] Comment on above: Order Comment: Speci men Type: Unknown Relevant Clinical Information: Altered mental status, hypoglycemia, hypothermia Ordering Facility: [facility]-CLIA#[id number] Address: [address] [place] [address] Performed By: #### M G, CMP #### [facility]CL[facility]#[id number] CLIA [id number] [address] [place] [address] Phil Franklin, DO,FCAP Leukocyte Esterase Ur Negative Normal Negative [facility] Comment on above: Order Comment: Speci men Type: Unknown Relevant Clinical Information: Altered mental status, hypoglycemia, hypothermia Ordering Facility: [facility]CLIA#[id number] Address: [address] [place] [address] Performed By: #### M G, CMP #### [facility]CL[facility]#[id number] CLIA [id number] [address] [place] [address] Phil Franklin, DO,FCAP Nitrite Urine Negative Normal Negative [facility] Comment on above: Order Comment: Speci men Type: Unknown Relevant Clinical Information: Altered mental status, hypoglycemia, hypothermia Ordering Facility: [facility]CLIA#[id number] Address: [address] [place] [address] Performed By: #### M G, CMP #### [facility]CL[facility]#[id number] CLIA [id number] [address] [place], [place] [id number] Phil Franklin, DO,FCAP pH (U) 5.0 [pH] Normal <=7.5 [facility] Comment on above: Order Comment: Speci men Type: Unknown Relevant Clinical Information: Altered mental status, hypoglycemia, hypothermia Ordering Facility: [facility]CLIA#[id number] Address: [address] [place] [address] Performed By: #### M Deacon, CMP #### [facility]CLIA#[id number] CLIA [id number] [address] [place] [address] Phil Franklin, DO,FCAP Protein Urine 300 Abnormal Negative [facility] Comment on above: Order Comment: Speci men Type: Unknown Relevant Clinical Information: Altered mental status, hypoglycemia, hypothermia Ordering Facility: [facility]-CLIA#[id number] Address: [address] [place] [address] Performed By: #### Aislinn Worthy, CMP #### [facility]CL[facility]#[id number] CLIA [id number] [address] [place] [address] Phil Franklin, DO,FCAP Specific [place] Ur 1.015 Normal 1.005-1. 02 5 [facility] Comment on above: Order Comment: Speci men Type: Unknown Relevant Clinical Information: Altered mental status, hypoglycemia, hypothermia Ordering Facility: [facility]-CLIA#[id number] Address: [address] [place] [address] Performed By: #### M Deacon, CMP #### [facility]CLIA#[id number] CLIA [id number] [address] [place] [address] Phil Franklin, DO,FCAP Urine Type Clean Catch Normal [facility] Comment on above: Order Comment: Speci men Type: Unknown Relevant Clinical Information: Altered mental status, hypoglycemia, hypothermia Ordering Facility: [facility]CLIA#[id number] Address: [address] [place] [address] Performed By: #### Aislinn Worthy, CMP #### [facility]CLIA#[id number] CLIA [id number] [address] [place] [address] Phil Franklin DOFCADELA Urobilinogen Urine 0.2 E.U./dL Normal 0-2.0 [facility] Comment on above: Order Comment: Speci men Type: Unknown Relevant Clinical Information: Altered mental status, hypoglycemia, hypothermia Ordering Facility: [facility]-CLIA#[id number] Address: [address] [place] [address] Performed By: #### M Deacon, [facility] #### [facility]CLIA#[id number] CLIA [id number] [address] [place] [address] Phil Franklin DO, FCAP USRNLMT 08-02-2023 [place] [address] Ultrasound Report Signed Patient: Chandler Minor MR#: [id number] [birth year] : 1970 Acct: [id number] Age/Sex: 53 / M ADM Date: 08/02/23 Loc: [facility] 4828-[address]: Helen Jovel M.D. Ordering Physician: Helen Jovel M.D. Date of Service: Procedure(s): US renal limited retroper Accession Number(s): [id number] cc: Helen Jovel M.D. RENAL ULTRASOUND TECHNIQUE: [...] By: Jorge A Yang D.O. 08/02/23 1244 [id number] Normal [facility] Urine Drug Screen of Abuseon 08-02-2023 Amphetamine Screen Ur Not detected Normal None Detect [facility] Comment on above: Order Comment: Speci men Type: Unknown Relevant Clinical Information: Altered mental status, hypoglycemia, hypothermia Ordering Facility: [facility] Address: , , Result Comment: Cuto ff: 500ng/mL Performed By: #### G LUCOMETER #### [facility] Barbiturate Screen Ur Not detected Normal None Detect [facility] Comment on above: Order Comment: Speci men Type: Unknown Relevant Clinical Information: Altered mental status, hypoglycemia, hypothermia Ordering Facility: [facility] Address: , , Result Comment: Cuto ff: 200ng/mL Performed By: #### G LUCOMETER #### [facility] Benzodiazepines Screen Ur Not detected Normal None Detect [facility] Comment on above: Order Comment: Speci men Type: Unknown Relevant Clinical Information: Altered mental status, hypoglycemia, hypothermia Ordering Facility: [facility] Address: , , Result Comment: Cuto ff: 200ng/mL Performed By: #### G LUCOMETER #### [facility] Buprenorphine Screen Ur Not detected Normal None Detect [facility] Comment on above: Order Comment: Speci men Type: Unknown Relevant Clinical Information: Altered mental status, hypoglycemia, hypothermia Ordering Facility: [facility] Address: , , Result Comment: Cuto ff: 5ng/mL Performed By: #### G LUCOMETER #### [facility] Cannabinoid Screen Urine Not detected Normal None Detect [facility] Comment on above: Order Comment: Speci men Type: Unknown Relevant Clinical Information: Altered mental status, hypoglycemia, hypothermia Ordering Facility: [facility] Address: , , Result Comment: Cuto ff: 50ng/mL Performed By: #### G LUCOMETER #### POC Cocaine Screen Ur Not detected Normal None Detect [facility] Comment on above: Order Comment: Speci men Type: Unknown Relevant Clinical Information: Altered mental status, hypoglycemia, hypothermia Ordering Facility: [facility] Address: , , Result Comment: Cuto ff: 150ng/mL Performed By: #### G LUCOMETER #### [facility] Fentanyl Screen Ur Not detected Normal None Detect [facility] Comment on above: Order Comment: Speci men Type: Unknown Relevant Clinical Information: Altered mental status, hypoglycemia, hypothermia Ordering Facility: [facility] Address: , , Result Comment: Cuto ff: 1.0 ng/mL Quinine and Quinidine may interfere with Fentanyl screening. Performed By: #### G LUCOMETER #### [facility] Heroin (6-AM) Screen Ur Not detected Normal None Detect [facility] Comment on above: Order Comment: Speci men Type: Unknown Relevant Clinical Information: Altered mental status, hypoglycemia, hypothermia Ordering Facility: [facility] Address: , , Result Comment: Cuto ff: 10ng/mL Performed By: #### G LUCOMETER #### [facility] Methadone Screen Ur Not detected Normal None Detect [facility] Comment on above: Order Comment: Speci men Type: Unknown Relevant Clinical Information: Altered mental status, hypoglycemia, hypothermia Ordering Facility: [facility] Address: , , Result Comment: Cuto ff: 150ng/mL Performed By: #### G LUCOMETER #### [facility] Opiate Screen Ur Not detected Normal None Detect [facility] Comment on above: Order Comment: Speci men Type: Unknown Relevant Clinical Information: Altered mental status, hypoglycemia, hypothermia Ordering Facility: [facility] Address: , , Result Comment: Cuto ff: 300ng/mL Performed By: #### G LUCOMETER #### [facility] Oxycodone Screen Ur Not detected Normal None Detect [facility] Comment on above: Order Comment: Speci men Type: Unknown Relevant Clinical Information: Altered mental status, hypoglycemia, hypothermia Ordering Facility: [facility] Address: , , Result Comment: Cuto ff: 100ng/mL Performed By: #### G LUCOMETER #### [facility] Urine Drug Message Normal [facility] Comment on above: Order Comment: Speci men [...] Hyaline Casts Urine 6 /LPF High 0-5 [facility] Comment on above: Order Comment: Speci men Type: Unknown Relevant Clinical Information: Altered mental status, hypoglycemia, hypothermia Ordering Facility: [facility]-CLIA#[id number] Address: [address] [place] [address] Performed By: #### Aislinn Worthy, CMP #### [facility]CLIA#[id number] CLIA [id number] [address] [place] [address] Phil Franklin, DO,FCAP RBC LM.HPF (Urine sed) [#/Area] 1 /[HPF] Normal 0-5 [facility] Comment on above: Order Comment: Speci men Type: Unknown Relevant Clinical Information: Altered mental status, hypoglycemia, hypothermia Ordering Facility: [facility]-CLIA#[id number] Address: [address] [place] [address] Performed By: #### Aislinn Worthy, CMP #### [facility]CLIA#[id number] CLIA [id number] [address] [place] [address] Phil Franklin, DO,FCAP Squamous Epithelial Cell Urine 0 /HPF Normal 0-4 [facility] Comment on above: Order Comment: Speci men Type: Unknown Relevant Clinical Information: Altered mental status, hypoglycemia, hypothermia Ordering Facility: [facility]-CLIA#[id number] Address: [address] [place] [address] Performed By: #### Aislinn Worthy, CMP #### [facility]CLIA#[id number] CLIA [id number] [address] [place] [address] Phil Franklin, DO,FCAP Urine Bacteria None Normal None [facility] Comment on above: Order Comment: Speci men Type: Unknown Relevant Clinical Information: Altered mental status, hypoglycemia, hypothermia Ordering Facility: [facility]CLIA#[id number] Address: [address] [place] [address] Performed By: #### Aislinn Worthy, CMP #### [facility]CL[facility]#[id number] CLIA [id number] [address] [place] [address] Phil Franklin DOFCAP WBC LM.HPF (Urine sed) [#/Area] 0 /[HPF] Normal 0-4 [facility] Comment on above: Order Comment: Speci men Type: Unknown Relevant Clinical Information: Altered mental status, hypoglycemia, hypothermia Ordering Facility: [facility]CLIA#[id number] Address: [address] [place] [address] Performed By: #### M G, CMP #### [facility]CL[facility]#[id number] CLIA [id number] [address] [place] [address] Phil Franklin DO,FCAP Urine blood detectionOrdered By: Helen Jovel on 08-02-2023 RBC Ql (U) Trace Negative [facility] Urine buprenorphine screenOr dered By: Helen Jovel on 08-02-2023 Buprenorphine Screen Ql (U) Not detected None Detect [facility] Comment on above: Cutoff: 5ng/mL Urine colorOrdered By: Vicente Jovel on 08-02-2023 Color (U) Yellow Yellow [facility] Urine fentanyl detection by screening methodOrdered By: Helen Jovel on 08-02-2023 fentaNYL Screen Ql (U) Not detected None Detect [facility] Comment on above: Cutoff: 1.0 ng/mLQui nine and Quinidine may interfere with Fentanyl screening. Urine glucose measurement by automated test strip (mass/volume)Ordered By: Helen Jovel on 08-02-2023 Glucose Auto test strip (U) [Mass/Vol] 500 mg/dL Negative [facility] Urine leukocyte esterase det ection by automated test stripOrdered By: Helen Jovel on 08-02-2023 Leukocyte esterase Auto test strip Ql (U) Negative Negative [facility] Urine methadone screenOrdere d By: Helen Jovel on 08-02-2023 Methadone Screen Ql (U) Not detected None Detect [facility] Comment on above: Cutoff: 150ng/mL Urine nitrite detection by a utomated test stripOrdered By: Helen Jovel on 08-02-2023 Nitrite Auto test strip Ql (U) Negative Negative [facility] Urine pHOrdered By: Helen Jovel on 08-02-2023 pH (U) 5.0 [pH] 0-7.5 [facility] Urine specific gravity measu rementOrdered By: Helen Jovel on 08-02-2023 Specific gravity (U) [Rel density] 1.015 1.005-1.02 5 [facility] Urine urobilinogen measureme ntOrdered By: Helen Jovel on 08-02-2023 Urobilinogen Ql (U) 0.2 E.U./dL 0-2.0 [facility] WBC Auto (Bld) [#/Vol]Ordere d By: Christopher Santiago on 08-02-2023 WBC (Bld) [#/Vol] 14.5 10*3/uL 4.5-11.0 [facility] Whole blood ionized calcium measurement adjusted to pH 7.4 (moles/volume)Ordered By: Christopher Santiago on 08-02-2023 Calcium.ionized adjusted to pH 7.4 (Bld) [Moles/Vol] 1.19 mmol/L 1.01-1.33 [facility] [id number] 08-02-2023 [id number] [place] [address] XRay Report Signed Patient: Chandler Minor MR#: [id number] 02 : 1970 Acct: [id number] Age/Sex: 53 / M ADM Date: 08/02/23 Loc: ER.[facility] Attending Dr: Ordering Physician: Helen Jovel M.D. Date of Service: Procedure(s): XR chest 1V portable Accession Number(s): [id number] cc: Helen Jovel M.D. CHEST COMPARISON: None [...] Signed By: Og Yang D.O. 08/02/23 0715 [id number] Normal [facility] oxyCODONE Screen Ql (U)Order ed By: Helen Jovel on 08-02-2023 oxyCODONE Ql (U) Not detected None Detect [facility] Comment on above: Cutoff: 100ng/mL pH (BldA)Ordered By: Christopher franklin on 08-02-2023 pH (Bld) 7.34 [pH] 7.35-7.45 [facility] Patient Provided Health Data on 07-29-2023 Patient Provided Health Data [id number] TIFF [facility] Progress Noteson 07-24-2023 Pcts Authentication Interface Message Text Longstanding PDR OU, [...] Dilate OU OCT mac OU Normal [facility] Study observation Right reti na by OCTon 07-24-2023 [facility] Study observation (narrative) [facility] Patient Handouton 07-12-2023 Patient Handout [id number] TIFF Normal [facility] INTRAVITREAL INJECTION, PHAR MACOLOGIC AGENT [...] mL Route: Intravitreal, Site: Right Eye Lot: [id number], Expiration date: 06/27/2023 Left Eye Preparation included 10% betadine to eyelids. A 30 gauge needle was used. Injection Medications: 1.25 mg bevacizumab 1.25MG/0.05 mL Route: Intravitreal, Site: Left Eye Lot: [id number], Expiration date: 06/27/2023 Post-op Right Eye Post [...] written and verbal post procedure care education. [facility] Progress Noteson 06-26-2023 Pcts Authentication Interface Message Text Longstanding PDR OU, DME, mac ischemia OU Sp PRP OU, Repeated injections - last 10/2022 Did not notice any real improvement with injections [place] [id number] Vision worse per pt A/P 1. DM [...] Dilate OU OCT mac OU Normal [facility] Study observation Right reti na by JULon 06-26-2023 [facility] Study observation (narrative) [facility] Basic Metabolic Panelon 07-0 Anion gap [Moles/Vol] Not performed Normal 6.0-15.0 [facility] [facility] Comment on above: Performed By: #### M Deacon BMP, CBC #### [facility] [address] [place] [address] [place] Calcium [Mass/Vol] 8.7 mg/dL Normal 8.6-10.3 [facility] Comment on above: Performed By: #### M Deacon BMP, CBC #### [facility] [address] [place] [address] [place] Chloride [Moles/Vol] 98 mmol/L Normal 98-107 [facility] Comment on above: Performed By: #### M Deacon BMP, CBC #### [facility] [address] [place] [address] [place] CO2 [Moles/Vol] 31.8 mmol/L High 21.0-31.0 [facility] Comment on above: Performed By: #### M Deacon BMP, CBC #### [facility] [address] [place] [address] [place] Creatinine [Mass/Vol] 2.57 mg/dL High 0.70-1.30 [facility] Comment on above: Performed By: #### Aislinn Worthy BMP, CBC #### [facility] [address] [place] [address] [place] Creatinine Clr Calc Pharmacy 38.54 [facility] Comment on above: Performed By: #### Aislinn Worthy, BMP, CBC #### [facility] [address] [place] [address] [place] GFR/1.73 sq M.predicted MDRD (S/P/Bld) [Vol rate/Area] 29.357 mL/min/{1.73_m2} [facility] Comment on above: Performed By: #### DIMA Matthews, CBC #### [facility] [address] Glucose [Mass/Vol] 97 mg/dL Normal 70-100 [facility] Comment on above: Result Comment: [place] Glucose Reference Range is dependent on time and content of last meal. Glucose of more than 200 mg/dL in a nonstressed, ambulatory subject supports the diagnosis of Diabetes Mellitus. ADA recommended reference range Performed By: #### Aislinn Worthy BMP, CBC #### [facility] [address] Potassium Normal 3.5-5.1 [facility] Comment on above: Result Comment: Spec imen hemolyzed, redraw requested Performed By: #### Aislinn Worthy BMP, CBC #### [facility] [address] Sodium Normal 136-145 [facility] Comment on above: Result Comment: Spec imen hemolyzed, redraw requested Performed By: #### Aislinn Worthy BMP, CBC #### [facility] [address] [place] [address] [place] Urea nitrogen [Mass/Vol] 56 mg/dL High 7-25 [facility] Comment on above: Performed By: #### Aislinn Worthy BMP, CBC #### [facility] [address] [place] [id number] [facility] Basophils Auto (Bld) [#/Vol] Ordered By: Albert Woods on 04-18-2023 Basophils (Bld) [#/Vol] 0.0 10*3/uL 0.0-0.2 [facility] Basophils/100 WBC Auto (Bld) Ordered By: Albert Woods on 04-18-2023 Basophils/100 WBC (Bld) 0.6 % . [facility] Calcium [Mass/volume] in Ser um or PlasmaOrdered By: Albert Woods on 04-18-2023 Calcium [Mass/Vol] 8.7 mg/dL 8.6-10.3 [facility] Carbon dioxide, total [Moles /volume] in Serum or PlasmaOrdered By: Albert Woods on 04-18-2023 CO2 [Moles/Vol] 31.8 mmol/L 21.0-31.0 [facility] Chloride [Moles/volume] in S guadalupe or PlasmaOrdered By: Albert Woods on 04-18-2023 Chloride [Moles/Vol] 98 mmol/L 98-107 [facility] Complete Blood Count Auto Di ffon 04-18-2023 Basophils (Bld) [#/Vol] 0.0 10*3/uL Normal 0.0-0.2 [facility] Comment on above: Result Comment: PERF ORMED BY: [facility] [address] [place] [address] PATHOLOGIST CONTACT CENTER ENGINEER MOOK BROWN M.D. Performed By: #### M DIMA Worthy, CBC #### [facility] [address] [place] [address] [place] Basophils/100 WBC (Bld) 0.6 % Normal . [facility] Comment on above: Performed By: #### M Deacon, BMP, CBC #### [facility] [address] [place] [address] [place] Eosinophils (Bld) [#/Vol] 0.3 10*3/uL Normal 0.0-0.45 [facility] Comment on above: Performed By: #### M Deacon BMP, CBC #### [facility] [address] [place] [address] [place] Eosinophils/100 WBC (Bld) 4.2 % Normal . [facility] Comment on above: Performed By: #### Aislinn Worthy BMP, CBC #### [facility] [address] Erythrocyte distribution width (RBC) [Ratio] 16.2 % High 12.0-14.8 [facility] Comment on above: Performed By: #### Aislinn Worthy BMP, CBC #### [facility] [address] Hematocrit (Bld) [Volume fraction] 38.4 % Low 38.8-50.0 [facility] Comment on above: Performed By: #### M Deacon BMP, CBC #### [facility] [address] Hemoglobin (Bld) [Mass/Vol] 12.8 g/dL Low 13.0-17.0 [facility] Comment on above: Performed By: #### Aislinn Worthy BMP, CBC #### [address] Lymphocytes (Bld) [#/Vol] 1.3 10*3/uL Normal 1.00-4.8 [facility] Comment on above: Performed By: #### Aislinn Worthy BMP, CBC #### [address] Lymphocytes/100 WBC (Bld) 17.3 % Normal . [facility] Comment on above: Performed By: #### Aislinn Worthy BMP, CBC #### [address] MCH (RBC) [Entitic mass] 29.7 pg Normal 27.5-35.2 [facility] Comment on above: Performed By: #### Aislinn Worthy BMP, CBC #### [facility] [address] MCV (RBC) [Entitic vol] 89.5 fL Normal 83.5-101 [facility] Comment on above: Performed By: #### Aislinn Worthy BMP, CBC #### [address] Mean Corpuscular HGB Conc 33.2 g/dL Normal 32.5-35.6 [facility] Comment on above: Performed By: #### M Deacon BMP, CBC #### [facility] [address] [place] [address] [place] Monocytes (Bld) [#/Vol] 0.8 10*3/uL Normal 0.0-0.8 [facility] Comment on above: Performed By: #### Aislinn Worthy BMP, CBC #### [facility] [address] [place] [address] [place] Monocytes/100 WBC (Bld) 10.8 % Normal . [facility] Comment on above: Performed By: #### Aislinn Worthy BMP, CBC #### [facility] [address] [place] [address] [place] Neutrophils (Bld) [#/Vol] 5.0 10*3/uL Normal 1.8-7.7 [facility] Comment on above: Performed By: #### Aislinn Worthy BMP, CBC #### [facility] [address] Neutrophils/100 WBC (Bld) 67.1 % Normal . [facility] Comment on above: Performed By: #### DIMA Matthews, CBC #### [facility] [address] [place] [address] [place] NRBC% 0.1 /100{WBC} Normal 0-0.5 [facility] Comment on above: Performed By: #### Aislinn Worthy BMP, CBC #### [facility] [address] [place] [address] [place] Platelet mean volume (Bld) [Entitic vol] 9.6 fL Normal 6.6-10.1 [facility] Comment on above: Performed By: #### Aislinn Worthy BMP, CBC #### [facility] [address] [place] [address] [place] Platelets (Bld) [#/Vol] 199 10*3/uL Normal 150-450 [facility] Comment on above: Performed By: #### Aislinn Worthy BMP, CBC #### [facility] [address] [place] [address] [place] RBC (Bld) [#/Vol] 4.29 10*6/uL Normal 3.90-5.60 [facility] Comment on above: Performed By: #### M DIMA Worthy, CBC #### [facility] [address] WBC (Bld) [#/Vol] 7.4 10*3/uL Normal 4.1-10.5 [facility] Comment on above: Performed By: #### M DIMA Worthy, CBC #### [facility] [address] Creatinine [Mass/volume] in Serum or PlasmaOrdered By: Albert Woods on 04-18-2023 Creatinine [Mass/Vol] 2.57 mg/dL 0.70-1.30 [facility] Eosinophils Auto (Bld) [#/Vo l]Ordered By: Albert Woods on 04-18-2023 Eosinophils (Bld) [#/Vol] 0.3 10*3/uL 0.0-0.45 [facility] Eosinophils/100 WBC Auto (Bl d)Ordered By: Albert Woods on 04-18-2023 Eosinophils/100 WBC (Bld) 4.2 % . [facility] Erythrocyte distribution wid th Auto (RBC) [Ratio]Ordered By: Albert Woods on 04-18-2023 Erythrocyte distribution width (RBC) [Ratio] 16.2 % 12.0-14.8 [facility] Free K+L LT Chains, Qn, Son 04-18-2023 Free [place] Light Chains, S 57.0 mg/L High 3.3-19.4 [facility] Comment on above: Performed By: #### R EDRAW K, REDRAW MG, REDRAW NA #### [facility] [address] Free [place] Light Chains, S 31.9 mg/L High 5.7-26.3 [facility] Comment on above: Performed By: #### R EDRAW K, REDRAW MG, REDRAW NA #### [facility] [address] [place]/Lambda Ratio, S 1.79 High 0.26-1.65 [facility] Comment on above: Result Comment: Perf ormed at: - [facility] [address] [id number] Legal Consultant: Phil Chua PhD, Phone: [phone] PERFORMED BY: [place] [address] PATHOLOGIST CONTACT CENTER ENGINEER MOOK BROWN M.D. Performed By: #### R EDRAW K, REDRAW MG, REDRAW NA #### [place] [address] [place] Glucose Glucometer (BldC) [M ass/Vol]Ordered By: Kameron Dos Santos on 04-18-2023 Glucose [Mass/Vol] 133 mg/dL [facility] Comment on above: Random Glucose Refer ence Range is dependent on time and content of last meal. Glucose of more than 200 mg/dL in a nonstressed, ambulatory subject supports the diagnosis of Diabetes Mellitus. Glucose Poct Glucometerson 0 04-18-2023 Commemt1 Glu2: Cleaned Meter [facility] Comment on above: Result Comment: PERF ORMED BY: [place] [address] PATHOLOGIST CONTACT CENTER ENGINEER MOOK BROWN M.D. Performed By: #### G LULS #### Point of Care testing , Glucose [Mass/Vol] 133 mg/dL Normal [facility] Comment on above: Result Comment: [place] Glucose Reference Range is dependent on time and content of last meal. Glucose of more than 200 mg/dL in a nonstressed, ambulatory subject supports the diagnosis of Diabetes Mellitus. Performed By: #### G LULS #### Point of Care testing , Commemt1 Glu2: Cleaned Meter [facility] Comment on above: Result Comment: PERF ORMED BY: [place] [address] PATHOLOGIST CONTACT CENTER ENGINEER MOOK BROWN M.D. Performed By: #### R EDRAW K, REDRAW MG, REDRAW NA #### [facility] [address] [place] [address] [place] Glucose [Mass/Vol] 114 mg/dL Normal [facility] Comment on above: Result Comment: [place] om Glucose Reference Range is dependent on time and content of last meal. Glucose of more than 200 mg/dL in a nonstressed, ambulatory subject supports the diagnosis of Diabetes Mellitus. Performed By: #### R EDRAW K, REDRAW MG, REDRAW NA #### [facility] [address] [place] [address] [place] Glucose [Mass/volume] in Ser um or PlasmaOrdered By: Albert Woods on 04-18-2023 Glucose [Mass/Vol] 97 mg/dL 70-100 [facility] Comment on above: ADA recommended refe rence rangeRandom Glucose Reference Range is dependent on time and content of last meal. Glucose of more than 200 mg/dL in a nonstressed, ambulatory subject supports the diagnosis of Diabetes Mellitus. Hematocrit Auto (Bld) [Volum e fraction]Ordered By: Albert Woods on 04-18-2023 Hematocrit (Bld) [Volume fraction] 38.4 % 38.8-50.0 [facility] Hemoglobin [Mass/volume] in BloodOrdered By: Albert Woods on 04-18-2023 Hemoglobin (Bld) [Mass/Vol] 12.8 g/dL 13.0-17.0 [facility] Immunofixation, (LOVE), Urine on 04-18-2023 Immunofixation, (LOVE), Urine Comment: Normal . [facility] Comment on above: Result Comment: Pres ence of monoclonal protein is unclear at this time. Suggest repeat in 3 to 6 months if clinically indicated. Performed at: - [address] [id number] Legal Consultant: Phil Chua PhD, Phone: [phone] PERFORMED BY: [facility] [address] [facility] [place] [address] PATHOLOGIST CONTACT CENTER ENGINEER MOOK BROWN M.D. Performed By: #### R EDRAW K, REDRAW MG, REDRAW NA #### [facility] [address] [place] [address] [place] Immunofixation,Serumon 04-18 Immunofixation, Serum Normal . [facility] Comment on above: Result Comment: No m onoclonality detected. Performed By: #### R EDRAW K, REDRAW MG, REDRAW NA #### [facility] [address] Immunoglobulin A, Serum 149 mg/dL Normal 90-386 [facility] Comment on above: Performed By: #### R EDRAW K, REDRAW MG, REDRAW NA #### [facility] [address] Immunoglobulin G 565 mg/dL Low 603-1613 [facility] Comment on above: Performed By: #### R EDRAW K, REDRAW MG, REDRAW NA #### [facility] [address] Immunoglobulin M, Serum 36 mg/dL Normal 20-172 [facility] Comment on above: Performed By: #### R EDRAW K, REDRAW MG, REDRAW NA #### [facility] [address] [place] [address] Leukocytes [#/volume] correc hamlet for nucleated erythrocytes in Blood by Automated counOrdered By: Albert Woods on 04-18-2023 WBC corrected for nucl RBC Auto (Bld) [#/Vol] 7.4 10*3/uL 4.1-10.5 [facility] Lymphocytes Auto (Bld) [#/Vo l]Ordered By: Albert Woods on 04-18-2023 Lymphocytes (Bld) [#/Vol] 1.3 10*3/uL 1.00-4.8 [facility] Lymphocytes/100 WBC Auto (Bl d)Ordered By: Albert Woods on 04-18-2023 Lymphocytes/100 WBC (Bld) 17.3 % . [facility] MCH Auto (RBC) [Entitic mass ]Ordered By: Albert Woods on 04-18-2023 MCH (RBC) [Entitic mass] 29.7 pg 27.5-35.2 [facility] MCHC Auto (RBC) [Mass/Vol]Or dered By: Albert Woods on 04-18-2023 MCHC (RBC) [Mass/Vol] 33.2 g/dL 32.5-35.6 [facility] MCV Auto (RBC) [Entitic vol] Ordered By: Albert Woods on 04-18-2023 MCV (RBC) [Entitic vol] 89.5 fL 83.5-101 [facility] Magnesiumon 04-18-2023 Magnesium Normal 1.9-2.7 [facility] Comment on above: Result Comment: Spec imen hemolyzed, redraw requested PERFORMED BY: [place] [address] PATHOLOGIST CONTACT CENTER ENGINEER MOOK BROWN M.D. Performed By: #### M G, BMP, CBC #### [address] Magnesium [Mass/volume] in S guadalupe or PlasmaOrdered By: Kameron Dos Santos on 04-18-2023 Magnesium [Mass/Vol] 2.4 mg/dL 1.9-2.7 [facility] Monocytes Auto (Bld) [#/Vol] Ordered By: Albert Woods on 04-18-2023 Monocytes (Bld) [#/Vol] 0.8 10*3/uL 0.0-0.8 [facility] Monocytes/100 WBC Auto (Bld) Ordered By: Albert Woods on 04-18-2023 Monocytes/100 WBC (Bld) 10.8 % . [facility] Neutrophils Auto (Bld) [#/Vo l]Ordered By: Albert Woods on 04-18-2023 Neutrophils (Bld) [#/Vol] 5.0 10*3/uL 1.8-7.7 [facility] Neutrophils/100 WBC Auto (Bl d)Ordered By: Albert Woods on 04-18-2023 Neutrophils/100 WBC (Bld) 67.1 % . [facility] No Panel InformationOrdered By: Kameron Dos Santos on 04-18-2023 Bedside Glucose Comment Glu2: cleaned meter [facility] No Panel InformationOrdered By: Albert Woods on 04-18-2023 Estimated GFR (CKD-EPI) 29.357 mL/Min [facility] Pharmacy Creatinine Clearance (Chem 38.54 [facility] Nucleated erythrocytes [Pres ence] in Blood by Automated countOrdered By: Albert Woods on 04-18-2023 Nucleated RBC Auto Ql (Bld) 0.1 /100{WBC} 0-0.5 [facility] Platelet mean volume Auto (B ld) [Entitic vol]Ordered By: Albert Woods on 04-18-2023 Platelet mean volume (Bld) [Entitic vol] 9.6 fL 6.6-10.1 [facility] Platelets Auto (Bld) [#/Vol] Ordered By: Albert Woods on 04-18-2023 Platelets (Bld) [#/Vol] 199 10*3/uL 150-450 [facility] Potassium [Moles/volume] in Serum or PlasmaOrdered By: Kameron Dos Santos on 04-18-2023 Potassium [Moles/Vol] 3.8 mmol/L 3.5-5.1 [facility] RBC Auto (Bld) [#/Vol]Ordere d By: Albert Woods on 04-18-2023 RBC (Bld) [#/Vol] 4.29 10*6/uL 3.90-5.60 [facility] Redraw Magnesiumon 3 Magnesium [Mass/Vol] 2.4 mg/dL Normal 1.9-2.7 [facility] Comment on above: Result Comment: PERF ORMED BY: [facility] [address] [place] [address] PATHOLOGIST CONTACT CENTER ENGINEER MOOK BROWN M.D. Performed By: #### R EDRAW K, REDRAW MG, REDRAW NA #### [facility] [address] Redraw Potassiumon 3 Potassium [Moles/Vol] 3.8 mmol/L Normal 3.5-5.1 [facility] Comment on above: Performed By: #### R EDRAW K, REDRAW MG, REDRAW NA #### [facility] [address] [place] [address] [place] Redraw Sodiumon 04-18-2023 Sodium [Moles/Vol] 138 mmol/L Normal 136-145 [facility] Comment on above: Performed By: #### R EDRAW K, REDRAW MG, REDRAW NA #### [facility] [address] Serum or plasma anion gap de terminationOrdered By: Albert Woods on 04-18-2023 Anion gap [Moles/Vol] TNP [facility] Comment on above: Test not performed Sodium [Moles/volume] in Ser um or PlasmaOrdered By: Kmaeron Dos Santos on 04-18-2023 Sodium [Moles/Vol] 138 mmol/L 136-145 [facility] Urea nitrogen [Mass/volume] in Serum or PlasmaOrdered By: Albert Woods on 04-18-2023 Urea nitrogen [Mass/Vol] 56 mg/dL 7-25 [facility] WBC Auto (Bld) [#/Vol]Ordere d By: Albert Woods on 04-18-2023 WBC (Bld) [#/Vol] 7.4 10*3/uL 4.1-10.5 [facility] A1C with Estimated Average G carmelon 04-17-2023 Glucose [Mass/Vol] 315 mg/dL Normal [facility] Comment on above: Result Comment: PERF ORMED BY: [place] [address] PATHOLOGIST CONTACT CENTER ENGINEER MOOK BROWN M.D. Performed By: #### R EDRAW K, REDRAW MG, REDRAW NA #### [facility] [address] [place] [address] HbA1c (Bld) [Mass fraction] 12.6 % High 4.3-5.6 [facility] Comment on above: Result Comment: Incr eased risk for diabetes: 5.7 - 6.4 diabetes: >6.4 glycemic control for adults with diabetes: <7.0 Performed By: #### R MONISHA KORIANA MG, REDLAVELL NA #### [facility] [address] Basic Metabolic Panelon 07-0 Anion gap [Moles/Vol] 10.4 mmol/L Normal 6.0-15.0 [facility] Comment on above: Performed By: #### B MP, MG, CBC #### [facility] [address] Calcium [Mass/Vol] 8.5 mg/dL Low 8.6-10.3 [facility] Comment on above: Performed By: #### B MP, MG, CBC #### [facility] [address] Chloride [Moles/Vol] 100 mmol/L Normal 98-107 [facility] Comment on above: Performed By: #### B MP, MG, CBC #### [facility] [address] CO2 [Moles/Vol] 30.3 mmol/L Normal 21.0-31.0 [facility] Comment on above: Performed By: #### B MP, MG, CBC #### [facility] [address] Creatinine [Mass/Vol] 2.66 mg/dL High 0.70-1.30 [facility] Comment on above: Performed By: #### B MP, MG, CBC #### [facility] [address] Creatinine Clr Calc Pharmacy 36.86 [facility] Comment on above: Performed By: #### B MP, MG, CBC #### [facility] [address] [place] [address] [place] GFR/1.73 sq M.predicted MDRD (S/P/Bld) [Vol rate/Area] 28.169 mL/min/{1.73_m2} [facility] Comment on above: Performed By: #### B MP, MG, CBC #### [address] Glucose [Mass/Vol] 100 mg/dL Normal 70-100 [facility] Comment on above: Result Comment: [place] Glucose Reference Range is dependent on time and content of last meal. Glucose of more than 200 mg/dL in a nonstressed, ambulatory subject supports the diagnosis of Diabetes Mellitus. ADA recommended reference range Performed By: #### B MP, MG, CBC #### [address] Potassium [Moles/Vol] 3.7 mmol/L Normal 3.5-5.1 [facility] Comment on above: Performed By: #### B MP, MG, CBC #### [address] Sodium [Moles/Vol] 137 mmol/L Normal 136-145 [facility] Comment on above: Performed By: #### B MP, MG, CBC #### [address] Urea nitrogen [Mass/Vol] 57 mg/dL High 7-25 [facility] Comment on above: Performed By: #### B MP, MG, CBC #### [address] Complete Blood Count Auto Di ffon 04-17-2023 Basophils (Bld) [#/Vol] 0.0 10*3/uL Normal 0.0-0.2 [facility] Comment on above: Result Comment: PERF ORMED BY: [place] [address] PATHOLOGIST CONTACT CENTER ENGINEER MOOK BROWN M.D. Performed By: #### B MP, MG, CBC #### [place] [address] [place] Basophils/100 WBC (Bld) 0.5 % Normal . [facility] Comment on above: Performed By: #### B MP, MG, CBC #### [place] [address] [place] Eosinophils (Bld) [#/Vol] 0.3 10*3/uL Normal 0.0-0.45 [facility] Comment on above: Performed By: #### B MP, MG, CBC #### [address] Eosinophils/100 WBC (Bld) 4.0 % Normal . [facility] Comment on above: Performed By: #### B MP, MG, CBC #### [address] Erythrocyte distribution width (RBC) [Ratio] 16.4 % High 12.0-14.8 [facility] Comment on above: Performed By: #### B MP, MG, CBC #### [address] Hematocrit (Bld) [Volume fraction] 37.5 % Low 38.8-50.0 [facility] Comment on above: Performed By: #### B MP, MG, CBC #### [address] Hemoglobin (Bld) [Mass/Vol] 12.6 g/dL Low 13.0-17.0 [facility] Comment on above: Performed By: #### B MP, MG, CBC #### [address] Lymphocytes (Bld) [#/Vol] 1.2 10*3/uL Normal 1.00-4.8 [facility] Comment on above: Performed By: #### B MP, MG, CBC #### [address] Lymphocytes/100 WBC (Bld) 14.4 % Normal . [facility] Comment on above: Performed By: #### B MP, MG, CBC #### [address] MCH (RBC) [Entitic mass] 29.8 pg Normal 27.5-35.2 [facility] Comment on above: Performed By: #### B MP, MG, CBC #### [address] MCV (RBC) [Entitic vol] 89.0 fL Normal 83.5-101 [facility] Comment on above: Performed By: #### B MP, MG, CBC #### [address] Mean Corpuscular HGB Conc 33.5 g/dL Normal 32.5-35.6 [facility] Comment on above: Performed By: #### B MP, MG, CBC #### [facility] [address] Monocytes (Bld) [#/Vol] 0.8 10*3/uL Normal 0.0-0.8 [facility] Comment on above: Performed By: #### B MP, MG, CBC #### [address] Monocytes/100 WBC (Bld) 10.2 % Normal . [facility] Comment on above: Performed By: #### B MP, MG, CBC #### [address] Neutrophils (Bld) [#/Vol] 5.8 10*3/uL Normal 1.8-7.7 [facility] Comment on above: Performed By: #### B MP, MG, CBC #### [address] Neutrophils/100 WBC (Bld) 70.9 % Normal . [facility] Comment on above: Performed By: #### B MP, MG, CBC #### [place] [address] [place] NRBC% 0.2 /100{WBC} Normal 0-0.5 [facility] Comment on above: Performed By: #### B MP, MG, CBC #### [address] Platelet mean volume (Bld) [Entitic vol] 9.9 fL Normal 6.6-10.1 [facility] Comment on above: Performed By: #### B MP, MG, CBC #### [facility] [address] Platelets (Bld) [#/Vol] 199 10*3/uL Normal 150-450 [facility] Comment on above: Performed By: #### B MP, MG, CBC #### [facility] [address] RBC (Bld) [#/Vol] 4.21 10*6/uL Normal 3.90-5.60 [facility] Comment on above: Performed By: #### B MP, MG, CBC #### [facility] [address] WBC (Bld) [#/Vol] 8.2 10*3/uL Normal 4.1-10.5 [facility] Comment on above: Performed By: #### B MP, MG, CBC #### [address] Creatinine [Mass/volume] in UrineOrdered By: Nkechi Kc on 04-17-2023 Creatinine (U) [Mass/Vol] 70.0 mg/dL 14.0-26.0 [facility] Creatinine, Urine (Random)on 04-17-2023 Creatinine, Urine (Random) 70.0 mg/dL High 14.0-26.0 [facility] Comment on above: Performed By: #### R EDRAW K, REDRAW MG, REDRAW NA #### [address] Glucose Poct Glucometerson 0 04-17-2023 Commemt1 Glu2: Cleaned Meter Normal [facility] Comment on above: Result Comment: PERF ORMED BY: [place] [address] PATHOLOGIST CONTACT CENTER ENGINEER MOOK BROWN M.D. Performed By: #### R EDRAW K, REDRAW MG, REDRAW NA #### [address] Glucose [Mass/Vol] 339 mg/dL Normal [facility] Comment on above: Result Comment: [place] om Glucose Reference Range is dependent on time and content of last meal. Glucose of more than 200 mg/dL in a nonstressed, ambulatory subject supports the diagnosis of Diabetes Mellitus. Performed By: #### R MONISHA Baez, REDRAW MG, REDRAW NA #### [address] Glucose mean value [Mass/vol ume] in Blood Estimated from glycated hemoglobinOrdered By: Nkechi Kc on 04-17-2023 Average glucose Estimated from glycated hemoglobin (Bld) [Mass/Vol] 315 mg/dL [facility] Hemoglobin A1c percentageOrd ered By: Nkechi Kc on 04-17-2023 HbA1c (Bld) [Mass fraction] 12.6 % 4.3-5.6 [facility] Comment on above: Increased risk for d iabetes: 5.7 - 6.4diabetes: >6.4glycemic control for adults with diabetes: <7.0 Magnesiumon 04-17-2023 Magnesium [Mass/Vol] 2.3 mg/dL Normal 1.9-2.7 [facility] Comment on above: Result Comment: PERF ORMED BY: [place] [address] PATHOLOGIST CONTACT CENTER ENGINEER MOOK BROWN M.D. Performed By: #### B MP, MG, CBC #### [facility] [address] [place] [address] Protein [Mass/volume] in Uri neOrdered By: Nkechi Kc on 04-17-2023 Protein (U) [Mass/Vol] 330 mg/dL 0-9 [facility] Total Protein, Urineon 04-17 Protein (U) [Mass/Vol] 330 mg/dL High 0-9 [facility] Comment on above: Result Comment: PERF ORMED BY: [place] [address] PATHOLOGIST CONTACT CENTER ENGINEER MOOK BROWN M.D. Performed By: #### R EDLAVELL K, REDRAW MG, REDRAW NA #### [address] [place] [address] [place] Automated epithelial cells c ount in urine sediment (number/area)Ordered By: Kameron Dos Santos on 04-16-2023 Epithelial cells Auto (Urine sed) [#/Area] None seen [HPF] 0-2 [facility] Automated erythrocytes count in urine sediment (number/area)Ordered By: Kameron Dos Santos on 04-16-2023 RBC Auto (Urine sed) [#/Area] None seen [HPF] 0-4 [facility] Automated leukocytes count i n urine sediment (number/area)Ordered By: Kameron Dos Santos on 04-16-2023 WBC Auto (Urine sed) [#/Area] None seen [HPF] 0-4 [facility] Automated urine hyaline cast s count (number/volume)Ordered By: Kameron Dos Santos on 04-16-2023 Hyaline casts Auto (U) [#/Vol] None seen [LPF] 0-1 [facility] Basic Metabolic Panelon Anion gap [Moles/Vol] 12.7 mmol/L Normal 6.0-15.0 [facility] Comment on above: Performed By: #### R EDLAVELL K REDRAW MG, REDRAW NA #### [facility] [address] [place] [address] Calcium [Mass/Vol] 8.8 mg/dL Normal 8.6-10.3 [facility] Comment on above: Performed By: #### R EDLAVELL K REDRAW MG, REDRAW NA #### [facility] [address] [place] [address] [place] Chloride [Moles/Vol] 100 mmol/L Normal 98-107 [facility] Comment on above: Performed By: #### R EDRALeann K REDRAW MG, REDRAW NA #### [facility] [address] [place] [address] [place] CO2 [Moles/Vol] 28.1 mmol/L Normal 21.0-31.0 [facility] Comment on above: Performed By: #### R EDRAW K REDRAW MG, REDRAW NA #### [facility] [address] Creatinine [Mass/Vol] 2.80 mg/dL High 0.70-1.30 [facility] Comment on above: Performed By: #### R EDRAW K, REDRAW MG, REDRAW NA #### [facility] [address] Creatinine Clr Calc Pharmacy 35.07 [facility] Comment on above: Result Comment: PERF ORMED BY: [place] [address] PATHOLOGIST CONTACT CENTER ENGINEER MOOK BROWN M.D. Performed By: #### R MONISHA Baez REDRAW MG, REDRAW NA #### [address] GFR/1.73 sq M.predicted MDRD (S/P/Bld) [Vol rate/Area] 26.487 mL/min/{1.73_m2} [facility] Comment on above: Performed By: #### R AMANDAW K REDRAW MG, REDRAW NA #### [address] Glucose [Mass/Vol] 161 mg/dL High 70-100 [facility] Comment on above: Result Comment: [place] Glucose Reference Range is dependent on time and content of last meal. Glucose of more than 200 mg/dL in a nonstressed, ambulatory subject supports the diagnosis of Diabetes Mellitus. ADA recommended reference range Performed By: #### R EDRALeann K REDRAW MG, REDRAW NA #### [facility] [address] [place] [address] Potassium [Moles/Vol] 3.8 mmol/L Normal 3.5-5.1 [facility] Comment on above: Performed By: #### R EDRAW K, REDRAW MG, REDRAW NA #### [address] Sodium [Moles/Vol] 137 mmol/L Normal 136-145 [facility] Comment on above: Performed By: #### R EDRAW K, REDRAW MG, REDRAW NA #### [facility] [address] Urea nitrogen [Mass/Vol] 54 mg/dL High 7-25 [facility] Comment on above: Performed By: #### R EDRAW K, REDRAW MG, REDRAW NA #### [facility] [address] Anion gap [Moles/Vol] 12.5 mmol/L Normal 6.0-15.0 [facility] Comment on above: Performed By: #### R EDRAW K, REDRAW MG, REDRAW NA #### [facility] [address] [place] [address] Calcium [Mass/Vol] 8.2 mg/dL Low 8.6-10.3 [facility] Comment on above: Performed By: #### R EDRAW K, REDRAW MG, REDRAW NA #### [facility] [address] [place] [address] Chloride [Moles/Vol] 98 mmol/L Normal 98-107 [facility] Comment on above: Performed By: #### R EDRAW K, REDRAW MG, REDRAW NA #### [facility] [address] [place] [address] CO2 [Moles/Vol] 31.8 mmol/L High 21.0-31.0 [facility] Comment on above: Performed By: #### R EDRAW K, REDRAW MG, REDRAW NA #### [facility] [address] Creatinine [Mass/Vol] 3.23 mg/dL High 0.70-1.30 [facility] Comment on above: Performed By: #### R EDRAW K, REDRAW MG, REDRAW NA #### [facility] [address] Creatinine Clr Calc Pharmacy 30.52 [facility] Comment on above: Performed By: #### R EDRAW K REDRAW MG, REDRAW NA #### [address] GFR/1.73 sq M.predicted MDRD (S/P/Bld) [Vol rate/Area] 22.315 mL/min/{1.73_m2} Normal [facility] Comment on above: Performed By: #### R MONISHA Baez REDRAW MG, REDRAW NA #### [address] Glucose [Mass/Vol] 133 mg/dL High 70-100 [facility] Comment on above: Result Comment: [facility] Glucose Reference Range is dependent on time and content of last meal. Glucose of more than 200 mg/dL in a nonstressed, ambulatory subject supports the diagnosis of Diabetes Mellitus. ADA recommended reference range Performed By: #### R MONISHA Baez REDRAW MG, REDRAW NA #### [address] Potassium [Moles/Vol] 3.3 mmol/L Low 3.5-5.1 [facility] Comment on above: Performed By: #### Maurisio Baez REDRAW MG, REDRAW NA #### [address] Sodium [Moles/Vol] 139 mmol/L Normal 136-145 [facility] Comment on above: Performed By: #### Maurisio EDLAVELL K REDRAW MG, REDRAW NA #### [address] Urea nitrogen [Mass/Vol] 56 mg/dL High 7-25 [facility] Comment on above: Performed By: #### R MONISHA Baez REDRAW MG, REDRAW NA #### [address] Bilirubin Test strip Ql (U)O rdered By: Kameron Dos Santos on 04-16-2023 Bilirubin Ql (U) Negative Negative [facility] CT abdomen pelvis wo conon 0 04-16-2023 CT abdomen pelvis wo con [facility] Main [place] [address] [place] [address] CT Scan Report Signed Patient: Chandler Minor MR#: [id number] 20 : 1970 Acct:[id number] Age/Sex: 52 / M ADM Date: 04/15/23 Loc: Room: [address] [place] [address] Type: ADM IN Attending Dr: Kameron Dos [...] Jesu Reese M.D.04/16/2023 6:22 PM Dictation Location: [place] [address] Transcribed By: [facility] 04/16/231821 Dictated By: Jesu Reese DO 04/16/231817 Signed By: 04/16/231821 Normal [facility] Color Auto (U)Ordered By: Rona Dos Santos on 04-16-2023 Color (U) Yellow Yellow [facility] Complete Blood Count Auto Di ffon 04-16-2023 Basophils (Bld) [#/Vol] 0.0 10*3/uL Normal 0.0-0.2 [facility] Comment on above: Result Comment: PERF ORMED BY: [place] [address] PATHOLOGIST CONTACT CENTER ENGINEER MOOK BROWN M.D. Performed By: #### R EDRAW K, REDRAW MG, REDRAW NA #### [address] Basophils/100 WBC (Bld) 0.5 % Normal . [facility] Comment on above: Performed By: #### R EDRAW K, REDRAW MG, REDRAW NA #### [address] Eosinophils (Bld) [#/Vol] 0.3 10*3/uL Normal 0.0-0.45 [facility] Comment on above: Performed By: #### R EDRAW K, REDRAW MG, REDRAW NA #### [address] Eosinophils/100 WBC (Bld) 3.7 % Normal . [facility] Comment on above: Performed By: #### R EDRAW K, REDRAW MG, REDRAW NA #### [facility] [address] [place] [address] Erythrocyte distribution width (RBC) [Ratio] 16.3 % High 12.0-14.8 [facility] Comment on above: Performed By: #### R EDRAW K, REDRAW MG, REDRAW NA #### [facility] [address] [place] [address] Hematocrit (Bld) [Volume fraction] 38.1 % Low 38.8-50.0 [facility] Comment on above: Performed By: #### R EDRAW K, REDRAW MG, REDRAW NA #### [facility] [address] [place] [address] Hemoglobin (Bld) [Mass/Vol] 12.6 g/dL Low 13.0-17.0 [facility] Comment on above: Performed By: #### R EDRAW K, REDRAW MG, REDRAW NA #### [address] Lymphocytes (Bld) [#/Vol] 1.4 10*3/uL Normal 1.00-4.8 [facility] Comment on above: Performed By: #### R EDRAW K, REDRAW MG, REDRAW NA #### [address] Lymphocytes/100 WBC (Bld) 17.7 % Normal . [facility] Comment on above: Performed By: #### R EDRAW K, REDRAW MG, REDRAW NA #### [address] MCH (RBC) [Entitic mass] 29.7 pg Normal 27.5-35.2 [facility] Comment on above: Performed By: #### R EDRAW K, REDRAW MG, REDRAW NA #### [address] MCV (RBC) [Entitic vol] 90.3 fL Normal 83.5-101 [facility] Comment on above: Performed By: #### R EDRAW K, REDRAW MG, REDRAW NA #### [address] Mean Corpuscular HGB Conc 32.9 g/dL Normal 32.5-35.6 [facility] Comment on above: Performed By: #### R EDRAW K, REDRAW MG, REDRAW NA #### [address] Monocytes (Bld) [#/Vol] 0.7 10*3/uL Normal 0.0-0.8 [facility] Comment on above: Performed By: #### R EDRAW K, REDRAW MG, REDRAW NA #### [address] [place] [address] [place] Monocytes/100 WBC (Bld) 8.8 % Normal . [facility] Comment on above: Performed By: #### R EDRAW K, REDRAW MG, REDRAW NA #### [facility] [address] [place] [address] Neutrophils (Bld) [#/Vol] 5.4 10*3/uL Normal 1.8-7.7 [facility] Comment on above: Performed By: #### R EDRAW K, REDRAW MG, REDRAW NA #### [facility] [address] [place] [address] Neutrophils/100 WBC (Bld) 69.3 % Normal . [facility] Comment on above: Performed By: #### R EDRAW K, REDRAW MG, REDRAW NA #### [address] NRBC% 0.1 /100{WBC} Normal 0-0.5 [facility] Comment on above: Performed By: #### R EDRAW K, REDRAW MG, REDRAW NA #### [facility] [address] [place] [address] Platelet mean volume (Bld) [Entitic vol] 9.5 fL Normal 6.6-10.1 [facility] Comment on above: Performed By: #### R EDRAW K, REDRAW MG, REDRAW NA #### [facility] [address] [place] [address] Platelets (Bld) [#/Vol] 187 10*3/uL Normal 150-450 [facility] Comment on above: Performed By: #### R EDRAW K, REDRAW MG, REDRAW NA #### [address] RBC (Bld) [#/Vol] 4.22 10*6/uL Normal 3.90-5.60 [facility] Comment on above: Performed By: #### R EDRAW K, REDRAW MG, REDRAW NA #### [facility] [address] [place] [address] WBC (Bld) [#/Vol] 7.8 10*3/uL Normal 4.1-10.5 [facility] Comment on above: Performed By: #### R EDRAW K, REDRAW MG, REDRAW NA #### [facility] [address] [place] [address] Creatinine, Urine (Random)on 04-16-2023 Creatinine, Urine (Random) 57.0 mg/dL High 14.0-26.0 [facility] Comment on above: Result Comment: PERF ORMED BY: [place] [address] PATHOLOGIST CONTACT CENTER ENGINEER MOOK BROWN M.D. Performed By: #### R EDRAW K, REDRAW MG, REDRAW NA #### [facility] [address] [place] [address] [place] Dipstick and Microscopicon 0 04-16-2023 Appearance (U) Clear Normal Clear [facility] Comment on above: Order Comment: Name Collection Type:: Clean-Voided Midstream Performed By: #### R EDRAW K, REDRAW MG, REDRAW NA #### [facility] [address] [place] [address] Bacteria,Urine None Seen Normal None Seen [facility] Comment on above: Order Comment: Name Collection Type:: Clean-Voided Midstream Performed By: #### R EDRAW K, REDRAW MG, REDRAW NA #### [facility] [address] [place] [address] [place] Bilirubin,Urine Negative Normal Negative [facility] Comment on above: Order Comment: Name Collection Type:: Clean-Voided Midstream Performed By: #### R EDRAW K, REDRAW MG, REDRAW NA #### [facility] [address] [place] [address] [place] Color (U) Yellow Normal Yellow [facility] Comment on above: Order Comment: Name Collection Type:: Clean-Voided Midstream Performed By: #### R EDRAW K, REDRAW MG, REDRAW NA #### [facility] [address] [place] [address] Glucose Ql (U) >=1000 High Normal [facility] Comment on above: Order Comment: Name Collection Type:: Clean-Voided Midstream Performed By: #### R EDRAW K, REDRAW MG, REDRAW NA #### [facility] [address] [place] [address] Hyaline Casts,Urine None Seen Normal 0-1 [facility] Comment on above: Order Comment: Name Collection Type:: Clean-Voided Midstream Result Comment: PERF ORMED BY: [place] [address] PATHOLOGIST CONTACT CENTER ENGINEER MOOK BROWN M.D. Performed By: #### R EDRAW K, REDRAW MG, REDRAW NA #### [facility] [address] [place] [address] Ketones Ql (U) Negative Normal Negative [facility] Comment on above: Order Comment: Name Collection Type:: Clean-Voided Midstream Performed By: #### R EDRAW K, REDRAW MG, REDRAW NA #### [address] Leukocyte esterase Test strip Ql (U) Negative Normal Negative [facility] Comment on above: Order Comment: Name Collection Type:: Clean-Voided Midstream Performed By: #### R EDRAW K, REDRAW MG, REDRAW NA #### [facility] [address] [place] [address] [place] Nitrite,Urine Negative Normal Negative [facility] Comment on above: Order Comment: Name Collection Type:: Clean-Voided Midstream Performed By: #### R EDRAW K, REDRAW MG, REDRAW NA #### [address] Occult Blood,Urine Negative Normal Negative [facility] Comment on above: Order Comment: Name Collection Type:: Clean-Voided Midstream Result Comment: PERF ORMED BY: [place] [address] PATHOLOGIST CONTACT CENTER ENGINEER MOOK BROWN M.D. Performed By: #### R EDRAW K, REDRAW MG, REDRAW NA #### [facility] [address] [place] [address] pH (U) 6.5 [pH] Normal 5.0-9.0 [facility] Comment on above: Order Comment: Name Collection Type:: Clean-Voided Midstream Performed By: #### R EDRAW K, REDRAW MG, REDRAW NA #### [facility] [address] [place] [address] Protein (U) [Mass/Vol] 300 mg/dL High Negative [facility] Comment on above: Order Comment: Name Collection Type:: Clean-Voided Midstream Performed By: #### R EDRAW K, REDRAW MG, REDRAW NA #### [facility] [address] [place] [address] RBC,Urine None Seen Normal 0-4 [facility] Comment on above: Order Comment: Name Collection Type:: Clean-Voided Midstream Performed By: #### R EDRAW K, REDRAW MG, REDRAW NA #### [address] Specificy [place],Urine 1.017 Normal 1.00 1-1.03 0 [facility] Comment on above: Order Comment: Name Collection Type:: Clean-Voided Midstream Performed By: #### R EDRAW K, REDRAW MG, REDRAW NA #### [facility] [address] [place] [address] Squamous Epithelial Cell,Urine None Seen Normal 0-2 [facility] Comment on above: Order Comment: Name Collection Type:: Clean-Voided Midstream Performed By: #### R EDRAW K, REDRAW MG, REDRAW NA #### [facility] [address] [place] [address] Urobilinogen,Urine Normal Normal Normal [facility] Comment on above: Order Comment: Name Collection Type:: Clean-Voided Midstream Performed By: #### R EDRAW K, REDRAW MG, REDRAW NA #### [facility] [address] [place] [address] WBC,Urine None Seen Normal 0-4 [facility] Comment on above: Order Comment: Name Collection Type:: Clean-Voided Midstream Performed By: #### R EDRAW K, REDRAW MG, REDRAW NA #### [address] Glucose Poct Glucometerson 0 04-16-2023 Commemt1 Glu2: Cleaned Meter Normal [facility] Comment on above: Result Comment: PERF ORMED BY: [place] [address] PATHOLOGIST CONTACT CENTER ENGINEER MOOK BROWN M.D. Performed By: #### R EDRAW K, REDRAW MG, REDRAW NA #### [address] Glucose [Mass/Vol] 193 mg/dL Normal [facility] Comment on above: Result Comment: [facility] Glucose Reference Range is dependent on time and content of last meal. Glucose of more than 200 mg/dL in a nonstressed, ambulatory subject supports the diagnosis of Diabetes Mellitus. Performed By: #### R EDRAW K, REDRAW MG, REDRAW NA #### [facility] [address] [place] [address] Ketones Auto test strip (U) [Mass/Vol]Ordered By: Kameron Dos Santos on 04-16-2023 Ketones (U) [Mass/Vol] Negative Negative [facility] Magnesiumon 04-16-2023 Magnesium [Mass/Vol] 2.3 mg/dL Normal 1.9-2.7 [facility] Comment on above: Result Comment: PERF ORMED BY: [place] [address] PATHOLOGIST CONTACT CENTER ENGINEER MOOK BROWN M.D. Performed By: #### R EDRAW K, REDRAW MG, REDRAW NA #### [facility] [address] [place] [id number] [place] Nitrite Test strip Ql (U)Ord ered By: Kameron Dos Santos on 04-16-2023 Nitrite Ql (U) Negative Negative [facility] Protein Auto test strip (U) [Mass/Vol]Ordered By: Kameron Dos Santos on 04-16-2023 Protein (U) [Mass/Vol] 300 mg/dL Negative Fi [facility] Sodium [Moles/volume] in Uri neOrdered By: Kameron Dos Santos on 04-16-2023 Sodium (U) [Moles/Vol] 67.0 mmol/L [facility] Comment on above: No reference range e stablished Sodium, Urineon 04-16-2023 Sodium (U) [Moles/Vol] 67.0 mmol/L Normal [facility] Comment on above: Result Comment: No r eference range established Performed By: #### R ORIANA SHETTY, REDRAW NA #### [facility] [address] [place], [place] [id number] [facility] Specific gravity Auto test s trip (U) [Rel density]Ordered By: Kameron Dos Santos on 04-16-2023 Specific gravity (U) [Rel density] 1.017 1.001-1.03 0 [facility] Urine bacteria detection by automated methodOrdered By: Kameron Dos Santos on 04-16-2023 Bacteria Auto Ql (U) None seen None Seen [facility] Urine clarity by refractomet ry automatedOrdered By: Kameron Dos Santos on 04-16-2023 Clarity Refractometry automated (U) Clear Clear [facility] Urine glucose measurement by automated test strip (mass/volume)Ordered By: Kameron Dos Santos on 04-16-2023 Glucose Auto test strip (U) [Mass/Vol] >=1000 mg/dL Normal [facility] Urine hemoglobin detection b y automated test stripOrdered By: Kameron Dos Santos on 04-16-2023 Hemoglobin Auto test strip Ql (U) Negative Negative [facility] Urine leukocyte esterase det ection by automated test stripOrdered By: Kameron Dos Santos on 04-16-2023 Leukocyte esterase Auto test strip Ql (U) Negative Negative [facility] Urobilinogen Auto test strip (U) [Mass/Vol]Ordered By: Kameron Dos Santos on 04-16-2023 Urobilinogen (U) [Mass/Vol] Normal mg/dL Normal [facility] pH Auto test strip (U)Ordere d By: Kameron Dos Santos on 04-16-2023 pH (U) 6.5 [pH] 5.0-9.0 [facility] OSMOLALITY URINEon 3 Osmolality, Urine 330 mOsmol/kg Normal [facility] Comment on above: Result Comment: 24 h r : 300 - 900 Random: 50 - 1400 After 12hr fluid restriction: >850 Performed By: #### P OCGLUC #### [facility] [address] [place] [address] Dr. Spring Nash BNPon 03-09-2023 Natriuretic peptide B (Bld) [Mass/Vol] 1950.0 pg/mL Critically high <=900.0 [facility] Comment on above: Performed By: #### B MP #### [facility] [address] [place] [address] Dr. Spring Nash CBC AUTO DIFFon 03-09-2023 BASO # 0.0 103/ul Normal 0.0-0.1 [facility] Comment on above: Performed By: #### C MP, HSTROPN, BNP #### [facility] [address] [place] [address] Dr. Spring Nash Basophils/100 WBC (Bld) 0.3 % Normal 0.2-2.0 [facility] Comment on above: Performed By: #### C MP, HSTROPN, BNP #### [facility] [address] [place] [address] Dr. Spring Nash EO # 0.3 103/ul Normal 0.0-0.7 [facility] Comment on above: Performed By: #### C MP, HSTROPN, BNP #### [facility] [address] [place] [address] Dr. Spring Nash Eosinophils/100 WBC (Bld) 5.9 % Normal 0.9-7.0 [facility] Comment on above: Performed By: #### C MP, HSTROPN, BNP #### [facility] [address] [place] [address] Dr. Spring Nash Erythrocyte distribution width (RBC) [Ratio] 15.6 % Critically high 11.0-15.0 [facility] [facility] Comment on above: Performed By: #### C MP, HSTROPN, BNP #### [facility] [address] [place] [address] Dr. Spring Nash Hematocrit (Bld) [Volume fraction] 31.4 % Critically low 42.0-54.0 [facility] Comment on above: Performed By: #### C MP, HSTROPN, BNP #### [facility] [address] [place] [address] Dr. Spring Nash Hemoglobin (Bld) [Mass/Vol] 10.0 g/dL Critically low 14.0-18.0 [facility] Comment on above: Performed By: #### C MP, HSTROPN, BNP #### [facility] [address] [place] [address] Dr. Spring Nash IG # 0.02 10e3/ul Normal 0.00-0.03 [facility] Comment on above: Performed By: #### C MP, HSTROPN, BNP #### [facility] [address] [place] [address] Dr. Spring Nash IG % 0.3 % Normal 0.0-0.5 The [facility] Comment on above: Performed By: #### C MP, HSTROPN, BNP #### [facility] [address] [place] [address] Dr. Spring Nash LYMPH # 1.0 103/ul Critically low 1.2-3.8 The [facility] Comment on above: Performed By: #### C MP, HSTROPN, BNP #### [facility] [address] [place] [address] Dr. Spring Nash Lymphocytes/100 WBC (Bld) 17.6 % Critically low 20.5-60.0 [facility] Comment on above: Performed By: #### C MP, HSTROPN, BNP #### [facility] [address] [address] [address] Spring Nash MANUAL DIFF REQ NO Normal [facility] Comment on above: Performed By: #### C MP, HSTROPN, BNP #### [facility] [address] [place] [address] Dr. Spring Nash MCH (RBC) [Entitic mass] 29.3 pg Normal 25.9-34.0 [facility] Comment on above: Performed By: #### C MP, HSTROPN, BNP #### [facility] [address] [place] [address] Dr. Spring Nash MCHC (RBC) [Mass/Vol] 31.8 g/dL Normal 29.9-35.2 [facility] Comment on above: Performed By: #### C MP, HSTROPN, BNP #### [facility] [address] [place] [address] Dr. Spring Nash MCV (RBC) [Entitic vol] 92.1 fL Normal 80.0-94.0 [facility] Comment on above: Performed By: #### C MP, HSTROPN, BNP #### [facility] [address] [place] [address] Dr. Spring Nash MONO # 0.6 103/ul Normal 0.3-0.8 [facility] Comment on above: Performed By: #### C MP, HSTROPN, BNP #### [facility] [address] [place] [address] Dr. Spring Nash Monocytes/100 WBC (Bld) 9.9 % Normal 1.7-12.0 [facility] Comment on above: Performed By: #### C MP, HSTROPN, BNP #### [facility] [address] [place] [address] Dr. Spring Nash NEUT # 3.8 103/ul Normal 1.4-6.5 [facility] Comment on above: Performed By: #### C MP, HSTROPN, BNP #### [facility] [address] [address] [address] Spring Nash Neutrophils/100 WBC (Bld) 66.0 % Normal 43.0-75.0 [facility] Comment on above: Performed By: #### C MP, HSTROPN, BNP #### [facility] [address] [address] [address] Spring Nash Platelet mean volume (Bld) [Entitic vol] 11.6 fL Normal 9.5-13.5 [facility] Comment on above: Performed By: #### C MP, HSTROPN, BNP #### [facility] [address] [address] [address] Spring Nahs PLT 213 103/ul Normal 150-450 [facility] Comment on above: Performed By: #### C MP, HSTROPN, BNP #### [facility] [address] [place] [address] Dr. Spring Nash RBC 3.41 106/ul Critically low 4.70-6.10 [facility] Comment on above: Performed By: #### C MP, HSTROPN, BNP #### [facility] [address] [address] [address] Spring Nash WBC 5.7 103/ul Normal 4.0-11.0 [facility] Comment on above: Performed By: #### C MP, HSTROPN, BNP #### [facility] [address] [address] [address] Spring Nash POINT OF CARE GLUCOSEon 02-12 Glucose [Mass/Vol] 233 mg/dL Critically high 74-106 [facility] Comment on above: Performed By: #### B MP #### [facility] [address] [place] [address] Dr. Spring Nash Glucose [Mass/Vol] 129 mg/dL Critically high 74-106 [facility] Comment on above: Performed By: #### C MP, HSTROPN, BNP #### [facility] [address] [address] [address] Spring Nash PROF 14(COMP METB)on 023 Albumin [Mass/Vol] 2.5 g/dL Critically low 3.4-5.0 [facility] Comment on above: Performed By: #### B MP #### [facility] [address] [place] [address] Dr. Spring Nash Albumin/Globulin [Mass ratio] 0.8 {ratio} Normal [facility] Comment on above: Performed By: #### B MP #### [facility] [address] [place] [address] Dr. Spring Nash ALP [Catalytic activity/Vol] 105 U/L Normal 46-116 [facility] Comment on above: Performed By: #### B MP #### [facility] [address] [place] [address] Dr. Spring Nash ALT [Catalytic activity/Vol] 18 U/L Normal 16-63 [facility] Comment on above: Performed By: #### B MP #### [facility] [address] [place] [address] Dr. Spring Nash Anion gap [Moles/Vol] 10.3 mmol/L Normal Th [facility] Comment on above: Performed By: #### B MP #### [facility] [address] [place] [address] Dr. Spring Nash AST [Catalytic activity/Vol] 14 U/L Critically low 15-37 [facility] Comment on above: Performed By: #### B MP #### [facility] [address] [place] [address] Dr. Spring Nash Bilirubin [Mass/Vol] 0.3 mg/dL Normal 0.2-1.0 [facility] Comment on above: Performed By: #### B MP #### [facility] [address] [place] [address] Dr. Spring Nash Calcium [Mass/Vol] 8.4 mg/dL Critically low 8.5-10.1 [facility] Comment on above: Performed By: #### B MP #### [facility] [address] [place] [address] Dr. Spring Nash Chloride [Moles/Vol] 106 mmol/L Normal 98-107 [facility] Comment on above: Performed By: #### B MP #### [facility] [address] [address] [address] Spring Nash CO2 [Moles/Vol] 30.2 mmol/L Normal 21.0-32.0 [facility] Comment on above: Performed By: #### B MP #### [facility] [address] [address] [address] Spring Nash Creatinine [Mass/Vol] 2.95 mg/dL Critically high 0.70-1.30 [facility] Comment on above: Performed By: #### B MP #### [facility] [address] [place] [address] Dr. Spring Nash EGFR-AF SOUTH AFRICAN 27 mL/min/1.73m2 Critically low >=60 [facility] Comment on above: Performed By: #### B MP #### [facility] [address] [address] [address] Spring Nash EGFR-NON AF SOUTH AFR[place] 23 mL/min/1.73m2 Critically low >=60 [facility] Comment on above: Performed By: #### B MP #### [facility] [address] [place] [address] Dr. Spring Nash Globulin (S) [Mass/Vol] 3.2 g/dL Normal [facility] Comment on above: Performed By: #### B MP #### [facility] [address] [address] [address] Spring Nash Glucose [Mass/Vol] 153 mg/dL Critically high 74-106 [facility] Comment on above: Performed By: #### B MP #### [facility] [address] [address] [address] Spring Nash Potassium [Moles/Vol] 4.5 mmol/L Normal 3.5-5.1 [facility] Comment on above: Performed By: #### B MP #### [facility] [address] [address] [address] Spring Nash Protein [Mass/Vol] 5.7 g/dL Critically low 6.4-8.2 Th e [facility] Comment on above: Performed By: #### B MP #### [facility] [address] [place] [address] Dr. Spring Nash Sodium [Moles/Vol] 142 mmol/L Normal 136-145 [facility] Comment on above: Performed By: #### B MP #### [facility] [address] [place] [address] Dr. Spring Nash Urea nitrogen [Mass/Vol] 50.0 mg/dL Critically high 7.0-18.0 [facility] Comment on above: Performed By: #### B MP #### [facility] [address] [place] [address] Dr. Spring Nash Urea nitrogen/Creatinine [Mass ratio] 16.9 mg/mg Normal [facility] Comment on above: Performed By: #### B MP #### [facility] [address] [place] [address] Dr. Spring Nash BNPon 03-08-2023 Natriuretic peptide B (Bld) [Mass/Vol] 2675.0 pg/mL Critically high <=900.0 [facility] Comment on above: Performed By: #### P OCGLUC #### [facility] [address] [place] [address] Dr. Spring Nash CBC AUTO DIFFon 03-08-2023 BASO # 0.0 103/ul Normal 0.0-0.1 [facility] Comment on above: Performed By: #### C MP, HSTROPN, BNP #### [facility] [address] [place] [address] Dr. Spring Nash Basophils/100 WBC (Bld) 0.5 % Normal 0.2-2.0 [facility] Comment on above: Performed By: #### C MP, HSTROPN, BNP #### [facility] [address] [place] [address] Dr. Spring Nash EO # 0.4 103/ul Normal 0.0-0.7 [facility] Comment on above: Performed By: #### C MP, HSTROPN, BNP #### [facility] [address] [place] [address] Dr. Spring Nash Eosinophils/100 WBC (Bld) 5.3 % Normal 0.9-7.0 [facility] Comment on above: Performed By: #### C MP, HSTROPN, BNP #### [facility] [address] [place] [address] Dr. Sprnig Nash Erythrocyte distribution width (RBC) [Ratio] 15.5 % Critically high 11.0-15.0 [facility] Comment on above: Performed By: #### C MP, HSTROPN, BNP #### [facility] [address] [place] [address] Dr. Spring Nash Hematocrit (Bld) [Volume fraction] 30.5 % Critically low 42.0-54.0 [facility] Comment on above: Performed By: #### C MP, HSTROPN, BNP #### [facility] [address] [place] [address] Dr. Spring Nash Hemoglobin (Bld) [Mass/Vol] 9.7 g/dL Critically low 14.0-18.0 [facility] Comment on above: Performed By: #### C MP, HSTROPN, BNP #### [facility] [address] [place] [address] Dr. Spring Nash IG # 0.03 10e3/ul Normal 0.00-0.03 The [facility] Comment on above: Performed By: #### C MP, HSTROPN, BNP #### [facility] [address] [place] [address] Dr. Spring Nash IG % 0.5 % Normal 0.0-0.5 [facility] Comment on above: Performed By: #### C MP, HSTROPN, BNP #### [facility] [address] [place] [address] Dr. Spring Nash LYMPH # 1.0 103/ul Critically low 1.2-3.8 [facility] Comment on above: Performed By: #### C MP, HSTROPN, BNP #### [facility] [address] [place], [place] [id number] Dr. Spring Nash Lymphocytes/100 WBC (Bld) 14.9 % Critically low 20.5-60.0 [facility] Comment on above: Performed By: #### C MP, HSTROPN, BNP #### [facility] [address] [place] [address] Dr. Spring Nash MANUAL DIFF REQ NO Normal [facility] Comment on above: Performed By: #### C MP, HSTROPN, BNP #### [facility] [address] [place] [address] Dr. Spring Nash MCH (RBC) [Entitic mass] 29.6 pg Normal 25.9-34.0 [facility] Comment on above: Performed By: #### C MP, HSTROPN, BNP #### [facility] [address] [place] [address] Dr. Spring Nash MCHC (RBC) [Mass/Vol] 31.8 g/dL Normal 29.9-35.2 [facility] Comment on above: Performed By: #### C MP, HSTROPN, BNP #### [facility] [address] [place] [address] Dr. Spring Nash MCV (RBC) [Entitic vol] 93.0 fL Normal 80.0-94.0 [facility] Comment on above: Performed By: #### C MP, HSTROPN, BNP #### [facility] [address] [place] [address] Dr. Spring Nash MONO # 0.5 103/ul Normal 0.3-0.8 [facility] Comment on above: Performed By: #### C MP, HSTROPN, BNP #### [facility] [address] [place] [address] Dr. Spring Nash Monocytes/100 WBC (Bld) 7.9 % Normal 1.7-12.0 [facility] Comment on above: Performed By: #### C MP, HSTROPN, BNP #### [facility] [address] [place] [address] Dr. Spring Nash NEUT # 4.7 103/ul Normal 1.4-6.5 [facility] Comment on above: Performed By: #### C MP, HSTROPN, BNP #### [facility] [address] [place] [address] Dr. Spring Nash Neutrophils/100 WBC (Bld) 70.9 % Normal 43.0-75.0 [facility] Comment on above: Performed By: #### C MP, HSTROPN, BNP #### [facility] [address] [address] [address] Spring Nash Platelet mean volume (Bld) [Entitic vol] 11.7 fL Normal 9.5-13.5 [facility] Comment on above: Performed By: #### C MP, HSTROPN, BNP #### [facility] [address] [place] [address] Dr. Spring Nash PLT 204 103/ul Normal 150-450 [facility] Comment on above: Performed By: #### C MP, HSTROPN, BNP #### [facility] [address] [place] [address] Dr. Spring Nash RBC 3.28 106/ul Critically low 4.70-6.10 [facility] Comment on above: Performed By: #### C MP, HSTROPN, BNP #### [facility] [address] [place] [address] Dr. Spring Nash WBC 6.6 103/ul Normal 4.0-11.0 [facility] Comment on above: Performed By: #### C MP, HSTROPN, BNP #### [facility] [address] [place] [address] Dr. Spring Nash POINT OF CARE GLUCOSEon 02-12 Glucose [Mass/Vol] 273 mg/dL Critically high 74-106 [facility] Comment on above: Performed By: #### P OCGLUC #### [facility] [address] [place] [address] Dr. Spring Nash Glucose [Mass/Vol] 194 mg/dL Critically high 74-106 [facility] Comment on above: Performed By: #### B MP #### [facility] [address] [address] [address] Spring Nash Glucose [Mass/Vol] 226 mg/dL Critically high 74-106 [facility] Comment on above: Performed By: #### P OCGLUC #### [facility] [address] [address] [address] Spring Nash PROF 14(COMP METB)on 023 Albumin [Mass/Vol] 2.5 g/dL Critically low 3.4-5.0 [facility] Comment on above: Performed By: #### P OCGLUC #### [facility] [address] [address] [address] Spring Nash Albumin/Globulin [Mass ratio] 0.8 {ratio} Normal [facility] Comment on above: Performed By: #### P OCGLUC #### [facility] [address] [address] [address] Sprign Nash ALP [Catalytic activity/Vol] 114 U/L Normal 46-116 [facility] Comment on above: Performed By: #### P OCGLUC #### [facility] [address] [address] [address] Spring Nash ALT [Catalytic activity/Vol] 15 U/L Critically low 16-63 [facility] Comment on above: Performed By: #### P OCGLUC #### [facility] [address] [address] [address] Spring Nash Anion gap [Moles/Vol] 12.2 mmol/L Normal [facility] Comment on above: Performed By: #### P OCGLUC #### [facility] [address] [address] [address] Spring Nash AST [Catalytic activity/Vol] 14 U/L Critically low 15-37 [facility] Comment on above: Performed By: #### P OCGLUC #### [facility] [address] [address] [address] Spring Nash Bilirubin [Mass/Vol] 0.3 mg/dL Normal 0.2-1.0 [facility] Comment on above: Performed By: #### P OCGLUC #### [facility] [address] [address] [address] Spring Nash Calcium [Mass/Vol] 8.4 mg/dL Critically low 8.5-10.1 Th [facility] Comment on above: Performed By: #### P OCGLUC #### [facility] [address] [address] [address] Spring Nash Chloride [Moles/Vol] 106 mmol/L Normal 98-107 [facility] Comment on above: Performed By: #### P OCGLUC #### [facility] [address] [address] [address] Spring Nash CO2 [Moles/Vol] 27.3 mmol/L Normal 21.0-32.0 [facility] Comment on above: Performed By: #### P OCGLUC #### [facility] [address] [address] [address] Spring Nash Creatinine [Mass/Vol] 3.20 mg/dL Critically high 0.70-1.30 [facility] Comment on above: Performed By: #### P OCGLUC #### [facility] [address] [address] [address] Spring Nash EGFR-AF SOUTH [place]FR[place] 25 mL/min/1.73m2 Critically low >=60 [facility] Comment on above: Performed By: #### P OCGLUC #### [facility] [address] [address] [address] Spring Nash EGFR-NON AF [place]FR[place] 21 mL/min/1.73m2 Critically low >=60 [facility] Comment on above: Performed By: #### P OCGLUC #### [facility] [address] [address] [address] Spring Nash Globulin (S) [Mass/Vol] 3.1 g/dL Normal [facility] Comment on above: Performed By: #### P OCGLUC #### [facility] [address] [address] [address] Spring Nash Glucose [Mass/Vol] 207 mg/dL Critically high 74-106 [facility] Comment on above: Performed By: #### P OCGLUC #### [facility] [address] [address] [address] Spring Nash Potassium [Moles/Vol] 4.5 mmol/L Normal 3.5-5.1 [facility] Comment on above: Performed By: #### P OCGLUC #### [facility] [address] [address] [address] Spring Nash Protein [Mass/Vol] 5.6 g/dL Critically low 6.4-8.2 Th [facility] Comment on above: Performed By: #### P OCGLUC #### [facility] [address] [address] [address] Spring Nash Sodium [Moles/Vol] 141 mmol/L Normal 136-145 [facility] Comment on above: Performed By: #### P OCGLUC #### [facility] [address] [place] [address] Dr. Spring Nash Urea nitrogen [Mass/Vol] 52.0 mg/dL Critically high 7.0-18.0 [facility] Comment on above: Performed By: #### P OCGLUC #### [facility] [address] [address] [address] Spring Nash Urea nitrogen/Creatinine [Mass ratio] 16.2 mg/mg Normal [facility] Comment on above: Performed By: #### P OCGLUC #### [facility] [address] [place] [address] Dr. Spring Nash BNPon 03-07-2023 Natriuretic peptide B (Bld) [Mass/Vol] 4010.0 pg/mL Critically high <=900.0 [facility] Comment on above: Performed By: #### C MP #### [facility] [address] [place] [address] Dr. Spring Nash CBC AUTO DIFFon 03-07-2023 BASO # 0.0 103/ul Normal 0.0-0.1 [facility] Comment on above: Performed By: #### P OCGLUC #### [facility] [address] [place] [address] Dr. Spring Nash Basophils/100 WBC (Bld) 0.3 % Normal 0.2-2.0 [facility] Comment on above: Performed By: #### P OCGLUC #### [facility] [address] [place] [address] Dr. Spring Nash EO # 0.3 103/ul Normal 0.0-0.7 [facility] Comment on above: Performed By: #### P OCGLUC #### [facility] [address] [place] [address] Dr. Spring Nash Eosinophils/100 WBC (Bld) 5.2 % Normal 0.9-7.0 [facility] Comment on above: Performed By: #### P OCGLUC #### [facility] [address] [place] [address] Dr. Spring Nash Erythrocyte distribution width (RBC) [Ratio] 15.7 % Critically high 11.0-15.0 [facility] Comment on above: Performed By: #### P OCGLUC #### [facility] [address] [place] [address] Dr. Spring Nash Hematocrit (Bld) [Volume fraction] 31.0 % Critically low 42.0-54.0 [facility] Comment on above: Performed By: #### P OCGLUC #### [facility] [address] [place] [address] Dr. Spring Nash Hemoglobin (Bld) [Mass/Vol] 9.6 g/dL Critically low 14.0-18.0 [facility] Comment on above: Performed By: #### P OCGLUC #### [facility] [address] [place] [address] Dr. Spring Nash IG # 0.03 10e3/ul Normal 0.00-0.03 [facility] Comment on above: Performed By: #### P OCGLUC #### [facility] [address] [place] [address] Dr. Spring Nash IG % 0.5 % Normal 0.0-0.5 [facility] Comment on above: Performed By: #### P OCGLUC #### [facility] [address] [place] [address] Dr. Spring Nash LYMPH # 0.8 103/ul Critically low 1.2-3.8 [facility] Comment on above: Performed By: #### P OCGLUC #### [facility] [address] [place] [address] Dr. Spring Nash Lymphocytes/100 WBC (Bld) 11.8 % Critically low 20.5-60.0 [facility] Comment on above: Performed By: #### P OCGLUC #### [facility] [address] [address] [address] Spring Nash MANUAL DIFF REQ NO Normal [facility] Comment on above: Performed By: #### P OCGLUC #### [facility] [address] [place] [address] Dr. Spring Nash MCH (RBC) [Entitic mass] 29.1 pg Normal 25.9-34.0 [facility] Comment on above: Performed By: #### P OCGLUC #### [facility] [address] [place] [address] Dr. Spring Nash MCHC (RBC) [Mass/Vol] 31.0 g/dL Normal 29.9-35.2 [facility] Comment on above: Performed By: #### P OCGLUC #### [facility] [address] [place] [address] Dr. Spring Nash MCV (RBC) [Entitic vol] 93.9 fL Normal 80.0-94.0 [facility] Comment on above: Performed By: #### P OCGLUC #### [facility] [address] [place] [address] Dr. Spring Nash MONO # 0.5 103/ul Normal 0.3-0.8 [facility] Comment on above: Performed By: #### P OCGLUC #### [facility] [address] [place] [address] Dr. Spring Nash Monocytes/100 WBC (Bld) 7.4 % Normal 1.7-12.0 [facility] Comment on above: Performed By: #### P OCGLUC #### [facility] [address] [place] [address] Dr. Spring Nash NEUT # 4.9 103/ul Normal 1.4-6.5 [facility] Comment on above: Performed By: #### P OCGLUC #### [facility] [address] [address] [address] Spring Nash Neutrophils/100 WBC (Bld) 74.8 % Normal 43.0-75.0 [facility] Comment on above: Performed By: #### P OCGLUC #### [facility] [address] [address] [address] Spring Nash Platelet mean volume (Bld) [Entitic vol] 11.7 fL Normal 9.5-13.5 [facility] Comment on above: Performed By: #### P OCGLUC #### [facility] [address] [place] [address] Dr. Spring Nash PLT 195 103/ul Normal 150-450 [facility] Comment on above: Performed By: #### P OCGLUC #### [facility] [address] [place] [address] Dr. Spring Nash RBC 3.30 106/ul Critically low 4.70-6.10 [facility] Comment on above: Performed By: #### P OCGLUC #### [facility] [address] [place] [address] Dr. Spring Nash WBC 6.6 103/ul Normal 4.0-11.0 [facility] Comment on above: Performed By: #### P OCGLUC #### [facility] [address] [place] [address] Dr. Spring Nash CHLORIDE URINE RANDOMon 02-12 Chloride, Urine 106 mmol/L Normal Not Estab. [facility] Comment on above: Performed By: #### P OCGLUC #### [facility] [address] [place] [address] Dr. Spring Nash POINT OF CARE GLUCOSEon 02-12 Glucose [Mass/Vol] 238 mg/dL Critically high 74-106 T [facility] Comment on above: Performed By: #### C MP, HSTROPN, BNP #### [facility] [address] [address] [address] Spring Nash Glucose [Mass/Vol] 215 mg/dL Critically high 74-106 [facility] Comment on above: Performed By: #### C SHAUN VERDE, BNP #### [facility] [address] [place] [address] Dr. Spring Nash Glucose [Mass/Vol] 181 mg/dL Critically high 74-106 [facility] Comment on above: Performed By: #### C SHAUN VERDE, BNP #### [facility] [address] [place] [address] Dr. Spring Nash PROF 14(COMP METB)on 023 Albumin [Mass/Vol] 2.4 g/dL Critically low 3.4-5.0 [facility] Comment on above: Performed By: #### C MP #### [facility] [address] [place] [address] Dr. Spring Nash Albumin/Globulin [Mass ratio] 0.7 {ratio} Normal [facility] Comment on above: Performed By: #### C MP #### [facility] [address] [place] [address] Dr. Spring Nash ALP [Catalytic activity/Vol] 102 U/L Normal 46-116 [facility] Comment on above: Performed By: #### C MP #### [facility] [address] [place] [address] Dr. Spring Nash ALT [Catalytic activity/Vol] 18 U/L Normal 16-63 [facility] Comment on above: Performed By: #### C MP #### [facility] [address] [place] [address] Dr. Spring Nash Anion gap [Moles/Vol] 13.1 mmol/L Normal [facility] Comment on above: Performed By: #### C MP #### [facility] [address] [place] [address] Dr. Spring Nash AST [Catalytic activity/Vol] 13 U/L Critically low 15-37 [facility] Comment on above: Performed By: #### C MP #### [facility] [address] [address] [address] Spring Nash Bilirubin [Mass/Vol] 0.3 mg/dL Normal 0.2-1.0 [facility] Comment on above: Performed By: #### C MP #### [facility] [address] [address] [address] Spring Nash Calcium [Mass/Vol] 8.1 mg/dL Critically low 8.5-10.1 Th [facility] Comment on above: Performed By: #### C MP #### [facility] [address] [address] [address] Spring Nahs Chloride [Moles/Vol] 108 mmol/L Critically high 98-107 [facility] Comment on above: Performed By: #### C MP #### [facility] [address] [place] [address] Dr. Spring Nash CO2 [Moles/Vol] 24.8 mmol/L Normal 21.0-32.0 [facility] Comment on above: Performed By: #### C MP #### [facility] [address] [place] [address] Dr. Spring Nash Creatinine [Mass/Vol] 3.39 mg/dL Critically high 0.70-1.30 [facility] Comment on above: Performed By: #### C MP #### [facility] [address] [place] [address] Dr. Spring Nash EGFR-AF SOUTH AFRICAN 23 mL/min/1.73m2 Critically low >=60 [facility] Comment on above: Performed By: #### C MP #### [facility] [address] [place] [address] Dr. Spring Nash EGFR-NON AF S[place]TH [place]FR[place] 19 mL/min/1.73m2 Critically low >=60 [facility] Comment on above: Performed By: #### C MP #### [facility] [address] [place] [address] Dr. Spring Nash Globulin (S) [Mass/Vol] 3.4 g/dL Normal T [facility] Comment on above: Performed By: #### C MP #### [facility] [address] [address] [address] Spring Nash Glucose [Mass/Vol] 101 mg/dL Normal 74-106 [facility] Comment on above: Performed By: #### C MP #### [facility] [address] [address] [address] Spring Nash Potassium [Moles/Vol] 4.9 mmol/L Normal 3.5-5.1 [facility] Comment on above: Performed By: #### C MP #### [facility] [address] [address] [address] Spring Nash Protein [Mass/Vol] 5.8 g/dL Critically low 6.4-8.2 Th [facility] Comment on above: Performed By: #### C MP #### [facility] [address] [address] [address] Spring Nash Sodium [Moles/Vol] 141 mmol/L Normal 136-145 [facility] Comment on above: Performed By: #### C MP #### [facility] [address] [address] [address] Spring Nash Urea nitrogen [Mass/Vol] 53.0 mg/dL Critically high 7.0-18.0 [facility] Comment on above: Performed By: #### C MP #### [facility] [address] [place] [address] Dr. Spring Nash Urea nitrogen/Creatinine [Mass ratio] 15.6 mg/mg Normal [facility] Comment on above: Performed By: #### C MP #### [facility] [address] [address] [address] Spring Nash BNPon 03-06-2023 Natriuretic peptide B (Bld) [Mass/Vol] 5021.0 pg/mL Critically high <=900.0 [facility] Comment on above: Performed By: #### B MP #### [facility] [address] [place] [address] Dr. Spring Nash CALCIUM URINEon 03-06-2023 UR CALCIUM <5.0 Critically low 5.1-21.0 [facility] Comment on above: Performed By: #### P OCGLUC #### [facility] [address] [address] [address] Spring Nash CBC AUTO DIFFon 03-06-2023 BASO # 0.0 103/ul Normal 0.0-0.1 [facility] Comment on above: Performed By: #### P OCGLUC #### [facility] [address] [address] [address] Spring Nash Basophils/100 WBC (Bld) 0.3 % Normal 0.2-2.0 [facility] Comment on above: Performed By: #### P OCGLUC #### [facility] [address] [address] [address] Spring Nash EO # 0.4 103/ul Normal 0.0-0.7 [facility] Comment on above: Performed By: #### P OCGLUC #### [facility] [address] [place] [address] Dr. Spring Nash Eosinophils/100 WBC (Bld) 5.6 % Normal 0.9-7.0 [facility] Comment on above: Performed By: #### P OCGLUC #### [facility] [address] [address] [address] Spring Nash Erythrocyte distribution width (RBC) [Ratio] 15.6 % Critically high 11.0-15.0 [facility] Comment on above: Performed By: #### P OCGLUC #### [facility] [address] [address] [address] Spring Nash Hematocrit (Bld) [Volume fraction] 30.7 % Critically low 42.0-54.0 [facility] Comment on above: Performed By: #### P OCGLUC #### [facility] [address] [address] [address] Spring Nash Hemoglobin (Bld) [Mass/Vol] 9.4 g/dL Critically low 14.0-18.0 [facility] Comment on above: Performed By: #### P OCGLUC #### [facility] [address] [address] [address] Spring Nash IG # 0.04 10e3/ul Critically high 0.00-0.03 [facility] Comment on above: Performed By: #### P OCGLUC #### [facility] [address] [address] [address] Spring Nash IG % 0.6 % Critically high 0.0-0.5 [facility] Comment on above: Performed By: #### P OCGLUC #### [facility] [address] [address] [address] Spring Nash LYMPH # 0.7 103/ul Critically low 1.2-3.8 [facility] Comment on above: Performed By: #### P OCGLUC #### [facility] [address] [address] [address] Spring Nash Lymphocytes/100 WBC (Bld) 10.7 % Critically low 20.5-60.0 [facility] Comment on above: Performed By: #### P OCGLUC #### [facility] [address] [address] [address] Spring Nash MANUAL DIFF REQ NO Normal [facility] Comment on above: Performed By: #### P OCGLUC #### [facility] [address] [address] [address] Spring Nash MCH (RBC) [Entitic mass] 29.5 pg Normal 25.9-34.0 [facility] Comment on above: Performed By: #### P OCGLUC #### [facility] [address] [address] [address] Spring Nash MCHC (RBC) [Mass/Vol] 30.6 g/dL Normal 29.9-35.2 [facility] Comment on above: Performed By: #### P OCGLUC #### [facility] [address] [address] [address] Spring Nash MCV (RBC) [Entitic vol] 96.2 fL Critically high 80.0-94 .0 [facility] Comment on above: Performed By: #### P OCGLUC #### [facility] [address] [address] [address] Spring Nash MONO # 0.6 103/ul Normal 0.3-0.8 [facility] Comment on above: Performed By: #### P OCGLUC #### [facility] [address] [address] [address] Spring Nash Monocytes/100 WBC (Bld) 8.2 % Normal 1.7-12.0 [facility] Comment on above: Performed By: #### P OCGLUC #### [facility] [address] [address] [address] Spring Nash NEUT # 5.1 103/ul Normal 1.4-6.5 [facility] Comment on above: Performed By: #### P OCGLUC #### [facility] [address] [place] [address] Dr. Spring Nash Neutrophils/100 WBC (Bld) 74.6 % Normal 43.0-75.0 [facility] Comment on above: Performed By: #### P OCGLUC #### [facility] [address] [place] [address] Dr. Spring Nash Platelet mean volume (Bld) [Entitic vol] 11.6 fL Normal 9.5-13.5 [facility] Comment on above: Performed By: #### P OCGLUC #### [facility] [address] [place] [address] Dr. Spring Nash PLT 176 103/ul Normal 150-450 [facility] Comment on above: Performed By: #### P OCGLUC #### [facility] [address] [place] [address] Dr. Spring Nash RBC 3.19 106/ul Critically low 4.70-6.10 [facility] Comment on above: Performed By: #### P OCGLUC #### [facility] [address] [place] [address] Dr. Spring Nash WBC 6.8 103/ul Normal 4.0-11.0 [facility] Comment on above: Performed By: #### P OCGLUC #### [facility] [address] [place] [address] Dr. Spring Nash CREATININE URINEon 3 URINE CREAT 20.22 mg/dL Normal 20.00-300. 00 [facility] Comment on above: Performed By: #### C MP, HSTROPN, BNP #### [facility] [address] [address] [address] Spring Nash ECHO LIMITED STUDYon 03-06- 023 ECHO LIMITED STUDY Patient: MELVI MINOR Exam Date: 03/06/2023 : 1970 Gender:M Ordering : TONY BARKSDALE Admission #: [id number] Family : SHAIKH Lana MORSE . Order #: [id number] CLICK HERE TO VIEW EXAM ECHOCARDIOGRAM REPORT [...] Left Atrium LA Volume Index (2D A2C): 147228 mm3 Left Atrium Systolic Dimension: 4.20 cm Mitral Valve Right Ventricle Aorta AO Root Diam: 3.10 cm Aortic Valve Tricuspid Valve Pulmonic Valve Right Atrium Dictated by: Jason Lord M.D. on 03/06/2023 at 16:49 Approved by: Jason Lord M.D. on 03/06/2023 at 16:54 Normal [facility] POINT OF CARE GLUCOSEon 02-12 Glucose [Mass/Vol] 372 mg/dL Critically high [address] [place] [address] Comment on above: Performed By: #### P OCGLUC #### [facility] [address] [address] [address] Spring Nash Glucose [Mass/Vol] 183 mg/dL Critically high [address] [place] [address] Comment on above: Performed By: #### P OCGLUC #### [facility] [address] [address] [address] Spring Nash Glucose [Mass/Vol] 118 mg/dL Critically high [address] [place] [address] Comment on above: Performed By: #### P OCGLUC #### [facility] [address] [address] [address] Spring Nash Glucose [Mass/Vol] 145 mg/dL Critically high [address] [place] [address] Comment on above: Performed By: #### P OCGLUC #### [facility] [address] [address] [address] Spring Nash POTASSIUM URINEon 03-06-2023 UR POTASSIUM 17.2 mmol/L Normal [facility] Comment on above: Performed By: #### C MP, HSTROPN, BNP #### [facility] [address] [address] [address] Spring Nash PROF 14(COMP METB)on 023 Albumin [Mass/Vol] 2.3 g/dL Critically low 3.4-5.0 [facility] Comment on above: Performed By: #### B MP #### [facility] [address] [address] [address] Spring Nash Albumin/Globulin [Mass ratio] 0.7 {ratio} Normal [facility] Comment on above: Performed By: #### B MP #### [facility] [address] [address] [address] Spring Nash ALP [Catalytic activity/Vol] 121 U/L Critically high 46-116 [facility] Comment on above: Performed By: #### B MP #### [facility] [address] [address] [address] Spring Nash ALT [Catalytic activity/Vol] 14 U/L Critically low 16-63 [facility] Comment on above: Performed By: #### B MP #### [facility] [address] [address] [address] Spring Nash Anion gap [Moles/Vol] 14.2 mmol/L Normal [facility] Comment on above: Performed By: #### B MP #### [facility] [address] [address] [address] Spring Nash AST [Catalytic activity/Vol] 13 U/L Critically low 15-37 [facility] Comment on above: Performed By: #### B MP #### [facility] [address] [address] [address] Spring Nash Bilirubin [Mass/Vol] 0.3 mg/dL Normal 0.2-1.0 [facility] Comment on above: Performed By: #### B MP #### [facility] [address] [address] [address] Spring Nash Calcium [Mass/Vol] 8.0 mg/dL Critically low 8.5-10.1 [facility] Comment on above: Performed By: #### B MP #### [facility] [address] [address] [address] Spring Nash CO2 [Moles/Vol] 22.5 mmol/L Normal 21.0-32.0 [facility] Comment on above: Performed By: #### B MP #### [facility] [address] [address] [address] Spring Nash Creatinine [Mass/Vol] 3.48 mg/dL Critically high 0.70-1.30 [facility] Comment on above: Performed By: #### B MP #### [facility] [address] [address] [address] Spring Nash EGFR-AF SOUTH AFR[place] 23 mL/min/1.73m2 Critically low >=60 [facility] Comment on above: Performed By: #### B MP #### [facility] [address] [address] [address] Spring Nash EGFR-NON AF [place]TH [place]FR[place] 19 mL/min/1.73m2 Critically low >=60 [facility] Comment on above: Performed By: #### B MP #### [facility] [address] [address] [address] Spring Nash Globulin (S) [Mass/Vol] 3.1 g/dL Normal [facility] Comment on above: Performed By: #### B MP #### [facility] [address] [address] [address] Spring Nash Glucose [Mass/Vol] 170 mg/dL Critically high 74-106 [facility] Comment on above: Performed By: #### B MP #### [facility] [address] [address] [address] Spring Nash Potassium [Moles/Vol] 4.7 mmol/L Normal 3.5-5.1 [facility] Comment on above: Performed By: #### B MP #### [facility] [address] [address] [address] Spring Nash Protein [Mass/Vol] 5.4 g/dL Critically low 6.4-8.2 Th [facility] Comment on above: Performed By: #### B MP #### [facility] [address] [address] [address] Spring Nash Urea nitrogen [Mass/Vol] 50.0 mg/dL Critically high 7.0-18.0 [facility] Comment on above: Performed By: #### B MP #### [facility] [address] [address] [address] Spring Nash Urea nitrogen/Creatinine [Mass ratio] 14.4 mg/mg Normal [facility] Comment on above: Performed By: #### B MP #### [facility] [address] [address] [address] Spring Nash PROF CHEM 8 (BAS METB)on Anion gap [Moles/Vol] 13.5 mmol/L Normal [facility] Comment on above: Performed By: #### B MP #### [facility] [address] [address] [address] Spring Nash Calcium [Mass/Vol] 7.8 mg/dL Critically low 8.5-10.1 [facility] Comment on above: Performed By: #### B MP #### [facility] [address] [address] [address] Spring Nash Chloride [Moles/Vol] 107 mmol/L Normal 98-107 [facility] Comment on above: Performed By: #### B MP #### [facility] [address] [place] [address] Dr. Spring Nash CO2 [Moles/Vol] 23.6 mmol/L Normal 21.0-32.0 [facility] Comment on above: Performed By: #### B MP #### [facility] [address] [place] [address] Dr. Spring Nash Creatinine [Mass/Vol] 3.60 mg/dL Critically high 0.70-1.30 [facility] Comment on above: Performed By: #### B MP #### [facility] [address] [place] [address] Dr. Spring Nash EGFR-AF S[place]FR[place] 22 mL/min/1.73m2 Critically low >=60 [facility] Comment on above: Performed By: #### B MP #### [facility] [address] [address] [address] Spring Nash EGFR-NON AF [place]TH [place]FR[place] 18 mL/min/1.73m2 Critically low >=60 [facility] Comment on above: Performed By: #### B MP #### [facility] [address] [place] [address] Dr. Spring Nash Glucose [Mass/Vol] 175 mg/dL Critically high 74-106 [facility] Comment on above: Performed By: #### B MP #### [facility] [address] [address] [address] Spring Nash Potassium [Moles/Vol] 5.1 mmol/L Normal 3.5-5.1 [facility] Comment on above: Performed By: #### B MP #### [facility] [address] [address] [address] Spring Nash Sodium [Moles/Vol] 139 mmol/L Normal 136-145 [facility] Comment on above: Performed By: #### B MP #### [facility] [address] [address] [address] Spring Nash Urea nitrogen [Mass/Vol] 48.0 mg/dL Critically high 7.0-18.0 [facility] Comment on above: Performed By: #### B MP #### [facility] [address] [address] [address] Spring Nash Urea nitrogen/Creatinine [Mass ratio] 13.3 mg/mg Normal [facility] Comment on above: Performed By: #### B MP #### [facility] [address] [address] [address] Spring Nash SODIUM RANDOM URINEon 2022 Sodium (U) [Moles/Vol] 106 mmol/L Critically high 30-90 [facility] Comment on above: Performed By: #### C MP, HSTROPN, BNP #### [facility] [address] [address] [address] Spring Nash VANCOMYCIN TROUGHon 03-06-20 VANCOMYCIN TROUGH 8.1 ug/ml Normal 5.0-20.0 [facility] Comment on above: Performed By: #### C MP #### [facility] [address] [place] [address] Dr. Spring Nash XR CHEST 2 Von [...] SAMANTHA MURPHY Date: 2023-03-06 12:19 Normal [facility] BNPon 03-05-2023 Natriuretic peptide B (Bld) [Mass/Vol] 5356.0 pg/mL Critically high <=900.0 [facility] Comment on above: Performed By: #### P OCGLUC #### [facility] [address] [place] [address] Dr. Spring Nash CBC AUTO DIFFon 03-05-2023 BASO # 0.0 103/ul Normal 0.0-0.1 [facility] Comment on above: Performed By: #### P OCGLUC #### [facility] [address] [place] [address] Dr. Spring Nash Basophils/100 WBC (Bld) 0.3 % Normal 0.2-2.0 [facility] Comment on above: Performed By: #### P OCGLUC #### [facility] [address] [place] [address] Dr. Spring Nash EO # 0.4 103/ul Normal 0.0-0.7 [facility] Comment on above: Performed By: #### P OCGLUC #### [facility] [address] [place] [address] Dr. Spring Nash Eosinophils/100 WBC (Bld) 5.7 % Normal 0.9-7.0 [facility] Comment on above: Performed By: #### P OCGLUC #### [facility] [address] [place] [address] Dr. Spring Nash Erythrocyte distribution width (RBC) [Ratio] 15.6 % Critically high 11.0-15.0 [facility] Comment on above: Performed By: #### P OCGLUC #### [facility] [address] [place] [address] Dr. Spring Nash Hematocrit (Bld) [Volume fraction] 28.9 % Critically low 42.0-54.0 [facility] Comment on above: Performed By: #### P OCGLUC #### [facility] [address] [address] [address] Spring Nash Hemoglobin (Bld) [Mass/Vol] 9.4 g/dL Critically low 14.0-18.0 [facility] Comment on above: Performed By: #### P OCGLUC #### [facility] [address] [address] [address] Spring Nash IG # 0.03 10e3/ul Normal 0.00-0.03 [facility] Comment on above: Performed By: #### P OCGLUC #### [facility] [address] [place] [address] Dr. Spring Nash IG % 0.4 % Normal 0.0-0.5 [facility] Comment on above: Performed By: #### P OCGLUC #### [facility] [address] [address] [address] Spring Nash LYMPH # 0.9 103/ul Critically low 1.2-3.8 [facility] Comment on above: Performed By: #### P OCGLUC #### [facility] [address] [place] [address] Dr. Spring Nash Lymphocytes/100 WBC (Bld) 11.5 % Critically low 20.5-60.0 [facility] Comment on above: Performed By: #### P OCGLUC #### [facility] [address] [place] [address] Dr. Spring Nash MANUAL DIFF REQ NO Normal [facility] Comment on above: Performed By: #### P OCGLUC #### [facility] [address] [place] [address] Dr. Spring Nash MCH (RBC) [Entitic mass] 29.8 pg Normal 25.9-34.0 [facility] Comment on above: Performed By: #### P OCGLUC #### [facility] [address] [place] [address] Dr. Spring Nash MCHC (RBC) [Mass/Vol] 32.5 g/dL Normal 29.9-35.2 [facility] Comment on above: Performed By: #### P OCGLUC #### [facility] [address] [place] [address] Dr. Spirng Nash MCV (RBC) [Entitic vol] 91.7 fL Normal 80.0-94.0 [facility] Comment on above: Performed By: #### P OCGLUC #### [facility] [address] [place] [address] Dr. Spring Nash MONO # 0.7 103/ul Normal 0.3-0.8 [facility] Comment on above: Performed By: #### P OCGLUC #### [facility] [address] [place] [address] Dr. Spring Nash Monocytes/100 WBC (Bld) 8.9 % Normal 1.7-12.0 [facility] Comment on above: Performed By: #### P OCGLUC #### [facility] [address] [place] [address] Dr. Spring Nash NEUT # 5.6 103/ul Normal 1.4-6.5 [facility] Comment on above: Performed By: #### P OCGLUC #### [facility] [address] [place] [address] Dr. Spring Nash Neutrophils/100 WBC (Bld) 73.2 % Normal 43.0-75.0 [facility] Comment on above: Performed By: #### P OCGLUC #### [facility] [address] [place] [address] Dr. Spring Nash Platelet mean volume (Bld) [Entitic vol] 11.8 fL Normal 9.5-13.5 [facility] Comment on above: Performed By: #### P OCGLUC #### [facility] [address] [place] [address] Dr. Spring Nash PLT 176 103/ul Normal 150-450 [facility] Comment on above: Performed By: #### P OCGLUC #### [facility] [address] [place] [address] Dr. Spring Nash RBC 3.15 106/ul Critically low 4.70-6.10 [facility] Comment on above: Performed By: #### P OCGLUC #### [facility] [address] [place] [address] Dr. Spring Nash WBC 7.6 103/ul Normal 4.0-11.0 [facility] Comment on above: Performed By: #### P OCGLUC #### [facility] [address] [place] [address] Dr. Spring Nash POINT OF CARE GLUCOSEon 02-12 Glucose [Mass/Vol] 272 mg/dL Critically high 74-106 [facility] Comment on above: Performed By: #### C MP, HSTROPN, BNP #### [facility] [address] [place] [address] Dr. Spring Nash Glucose [Mass/Vol] 179 mg/dL Critically high 74-106 [facility] Comment on above: Performed By: #### P OCGLUC #### [facility] [address] [place] [address] Dr. Spring Nash Glucose [Mass/Vol] 136 mg/dL Critically high -106 [facility] Comment on above: Performed By: #### P OCGLUC #### [facility] [address] [place] [address] Dr. Spring Nash PROF 14(COMP METB)on 023 Albumin [Mass/Vol] 2.3 g/dL Critically low 3.4-5.0 [facility] Comment on above: Performed By: #### P OCGLUC #### [facility] [address] [place] [address] Dr. Spring Nash Albumin/Globulin [Mass ratio] 0.8 {ratio} Normal [facility] Comment on above: Performed By: #### P OCGLUC #### [facility] [address] [place] [address] Dr. Spring Nash ALP [Catalytic activity/Vol] 116 U/L Normal 46-116 [facility] Comment on above: Performed By: #### P OCGLUC #### [facility] [address] [address] [address] Spring Nash ALT [Catalytic activity/Vol] 15 U/L Critically low 16-63 [facility] Comment on above: Performed By: #### P OCGLUC #### [facility] [address] [address] [address] Spring Nash Anion gap [Moles/Vol] 14.0 mmol/L Normal [facility] Comment on above: Performed By: #### P OCGLUC #### [facility] [address] [address] [address] Spring Nash AST [Catalytic activity/Vol] 15 U/L Normal 15-37 [facility] Comment on above: Performed By: #### P OCGLUC #### [facility] [address] [address] [address] Spring Nash Bilirubin [Mass/Vol] 0.2 mg/dL Normal 0.2-1.0 [facility] Comment on above: Performed By: #### P OCGLUC #### [facility] [address] [address] [address] Spring Nash Calcium [Mass/Vol] 8.0 mg/dL Critically low 8.5-10.1 [facility] Comment on above: Performed By: #### P OCGLUC #### [facility] [address] [place] [address] Dr. Spring Nash Chloride [Moles/Vol] 108 mmol/L Critically high 98-107 [facility] Comment on above: Performed By: #### P OCGLUC #### [facility] [address] [address] [address] Spring Nash CO2 [Moles/Vol] 22.2 mmol/L Normal 21.0-32.0 [facility] Comment on above: Performed By: #### P OCGLUC #### [facility] [address] [address] [address] Spring Nash Creatinine [Mass/Vol] 3.06 mg/dL Critically high 0.70-1.30 [facility] Comment on above: Performed By: #### P OCGLUC #### [facility] [address] [address] [address] Spring Nahs EGFR-AF SOUTH AFR[place] 26 mL/min/1.73m2 Critically low >=60 [facility] Comment on above: Performed By: #### P OCGLUC #### [facility] [address] [address] [address] Spring Nash EGFR-NON AF [place]FR[place] 22 mL/min/1.73m2 Critically low >=60 [facility] Comment on above: Performed By: #### P OCGLUC #### [facility] [address] [address] [address] Spring Nash Globulin (S) [Mass/Vol] 3.0 g/dL Normal [facility] Comment on above: Performed By: #### P OCGLUC #### [facility] [address] [address] [address] Spring Nash Glucose [Mass/Vol] 142 mg/dL Critically high 74-106 [facility] Comment on above: Performed By: #### P OCGLUC #### [facility] [address] [address] [address] Spring Nash Potassium [Moles/Vol] 4.2 mmol/L Normal 3.5-5.1 [facility] Comment on above: Performed By: #### P OCGLUC #### [facility] [address] [address] [address] Spring Nash Protein [Mass/Vol] 5.3 g/dL Critically low 6.4-8.2 [facility] Comment on above: Performed By: #### P OCGLUC #### [facility] [address] [address] [address] Spring Nash Sodium [Moles/Vol] 140 mmol/L Normal 136-145 [facility] Comment on above: Performed By: #### P OCGLUC #### [facility] [address] [address] [address] Spring Nash Urea nitrogen [Mass/Vol] 40.0 mg/dL Critically high 7.0-18.0 [facility] Comment on above: Performed By: #### P OCGLUC #### [facility] [address] [place] [address] Dr. Spring Nash Urea nitrogen/Creatinine [Mass ratio] 13.1 mg/mg Normal [facility] Comment on above: Performed By: #### P OCGLUC #### [facility] [address] [place] [address] Dr. Spring Nash BNPon 03-04-2023 Natriuretic peptide B (Bld) [Mass/Vol] 8915.0 pg/mL Critically high <=900.0 [facility] Comment on above: Performed By: #### P OCGLUC #### [facility] [address] [place] [address] Dr. Spring Nash CBC AUTO DIFFon 03-04-2023 BASO # 0.0 103/ul Normal 0.0-0.1 [facility] Comment on above: Performed By: #### C MP #### [facility] [address] [place] [address] Dr. Spring Nash Basophils/100 WBC (Bld) 0.2 % Normal 0.2-2.0 [facility] Comment on above: Performed By: #### C MP #### [facility] [address] [place] [address] Dr. Spring Nash EO # 0.4 103/ul Normal 0.0-0.7 [facility] Comment on above: Performed By: #### C MP #### [facility] [address] [place] [address] Dr. Spring Nash Eosinophils/100 WBC (Bld) 5.1 % Normal 0.9-7.0 [facility] Comment on above: Performed By: #### C MP #### [facility] [address] [place] [address] Dr. Spring Nash Erythrocyte distribution width (RBC) [Ratio] 15.7 % Critically high 11.0-15.0 [facility] Comment on above: Performed By: #### C MP #### [facility] [address] [place] [address] Dr. Spring Nash Hematocrit (Bld) [Volume fraction] 29.5 % Critically low 42.0-54.0 [facility] Comment on above: Performed By: #### C MP #### [facility] [address] [address] [address] Spring Nash Hemoglobin (Bld) [Mass/Vol] 9.2 g/dL Critically low 14.0-18.0 [facility] Comment on above: Performed By: #### C MP #### [facility] [address] [address] [address] Spring Nash IG # 0.03 10e3/ul Normal 0.00-0.03 [facility] Comment on above: Performed By: #### C MP #### [facility] [address] [address] [address] Spring Nash IG % 0.4 % Normal 0.0-0.5 [facility] Comment on above: Performed By: #### C MP #### [facility] [address] [place] [address] Dr. Spring Nash LYMPH # 0.9 103/ul Critically low 1.2-3.8 [facility] Comment on above: Performed By: #### C MP #### [facility] [address] [place] [address] Dr. Spring Nash Lymphocytes/100 WBC (Bld) 11.3 % Critically low 20.5-60.0 [facility] Comment on above: Performed By: #### C MP #### [facility] [address] [address] [address] Spring Nash MANUAL DIFF REQ NO Normal [facility] Comment on above: Performed By: #### C MP #### [facility] [address] [address] [address] Spring Nash MCH (RBC) [Entitic mass] 29.6 pg Normal 25.9-34.0 [facility] Comment on above: Performed By: #### C MP #### [facility] [address] [address] [address] Spring Nash MCHC (RBC) [Mass/Vol] 31.2 g/dL Normal 29.9-35.2 [facility] Comment on above: Performed By: #### C MP #### [facility] [address] [address] [address] Spring Nash MCV (RBC) [Entitic vol] 94.9 fL Critically high 80.0-94 .0 [facility] Comment on above: Performed By: #### C MP #### [facility] [address] [address] [address] Spring Nash MONO # 0.6 103/ul Normal 0.3-0.8 [facility] Comment on above: Performed By: #### C MP #### [facility] [address] [address] [address] Spring Nash Monocytes/100 WBC (Bld) 7.7 % Normal 1.7-12.0 [facility] Comment on above: Performed By: #### C MP #### [facility] [address] [place] [address] Dr. Spring Nash NEUT # 6.2 103/ul Normal 1.4-6.5 [facility] Comment on above: Performed By: #### C MP #### [facility] [address] [address] [address] Spring Nash Neutrophils/100 WBC (Bld) 75.3 % Critically high 43.0-75.0 [facility] Comment on above: Performed By: #### C MP #### [facility] [address] [address] [address] Spring Nash Platelet mean volume (Bld) [Entitic vol] 11.8 fL Normal 9.5-13.5 [facility] Comment on above: Performed By: #### C MP #### [facility] [address] [address] [address] Spring Nash PLT 183 103/ul Normal 150-450 [facility] Comment on above: Performed By: #### C MP #### [facility] [address] [address] [address] Spring Nash RBC 3.11 106/ul Critically low 4.70-6.10 [facility] Comment on above: Performed By: #### C MP #### [facility] [address] [address] [address] Spring Nash WBC 8.2 103/ul Normal 4.0-11.0 [facility] Comment on above: Performed By: #### C MP #### [facility] [address] [address] [address] Spring Nash POINT OF CARE GLUCOSEon 02-12 Glucose [Mass/Vol] 218 mg/dL Critically high 74-106 [facility] Comment on above: Performed By: #### P OCGLUC #### [facility] [address] [address] [address] Spring Nash Glucose [Mass/Vol] 193 mg/dL Critically high -106 [facility] Comment on above: Performed By: #### P OCGLUC #### [facility] [address] [address] [address] Spring Nash Glucose [Mass/Vol] 146 mg/dL Critically high -106 [facility] Comment on above: Performed By: #### C MP #### [facility] [address] [address] [address] Spring Nash Glucose [Mass/Vol] 65 mg/dL Critically low 74-106 [facility] Comment on above: Performed By: #### P OCGLUC #### [facility] [address] [place] [address] Dr. Spring Nash PROF 14(COMP METB)on 023 Albumin [Mass/Vol] 2.2 g/dL Critically low 3.4-5.0 [facility] Comment on above: Performed By: #### P OCGLUC #### [facility] [address] [place] [address] Dr. Spring Nash Albumin/Globulin [Mass ratio] 0.8 {ratio} Normal [facility] Comment on above: Performed By: #### P OCGLUC #### [facility] [address] [address] [address] Spring Nash ALP [Catalytic activity/Vol] 100 U/L Normal 46-116 [facility] Comment on above: Performed By: #### P OCGLUC #### [facility] [address] [address] [address] Spring Nash ALT [Catalytic activity/Vol] 15 U/L Critically low 16-63 [facility] Comment on above: Performed By: #### P OCGLUC #### [facility] [address] [address] [address] Spring Nash Anion gap [Moles/Vol] 13.2 mmol/L Normal [facility] Comment on above: Performed By: #### P OCGLUC #### [facility] [address] [address] [address] Spring Nash AST [Catalytic activity/Vol] 14 U/L Critically low 15-37 [facility] Comment on above: Performed By: #### P OCGLUC #### [facility] [address] [address] [address] Spring Nash Bilirubin [Mass/Vol] 0.3 mg/dL Normal 0.2-1.0 [facility] Comment on above: Performed By: #### P OCGLUC #### [facility] [address] [address] [address] Spring Nash Calcium [Mass/Vol] 8.0 mg/dL Critically low 8.5-10.1 [facility] Comment on above: Performed By: #### P OCGLUC #### [facility] [address] [address] [address] Spring Nash Chloride [Moles/Vol] 109 mmol/L Critically high 98-107 [facility] Comment on above: Performed By: #### P OCGLUC #### [facility] [address] [address] [address] Spring Nash CO2 [Moles/Vol] 24.3 mmol/L Normal 21.0-32.0 [facility] Comment on above: Performed By: #### P OCGLUC #### [facility] [address] [address] [address] Spring Nash Creatinine [Mass/Vol] 2.38 mg/dL Critically high 0.70-1.30 [facility] Comment on above: Performed By: #### P OCGLUC #### [facility] [address] [address] [address] Spring Nash EGFR-AF S[place]FR[place] 35 mL/min/1.73m2 Critically low >=60 [facility] Comment on above: Performed By: #### P OCGLUC #### [facility] [address] [address] [address] Spring Nash EGFR-NON AF [place] 29 mL/min/1.73m2 Critically low >=60 [facility] Comment on above: Performed By: #### P OCGLUC #### [facility] [address] [address] [address] Spring Nash Globulin (S) [Mass/Vol] 2.9 g/dL Normal [facility] Comment on above: Performed By: #### P OCGLUC #### [facility] [address] [address] [address] Spring Nash Glucose [Mass/Vol] 107 mg/dL Critically high 74-106 [facility] Comment on above: Performed By: #### P OCGLUC #### [facility] [address] [address] [address] Spring Nash Potassium [Moles/Vol] 3.5 mmol/L Normal 3.5-5.1 [facility] Comment on above: Performed By: #### P OCGLUC #### [facility] [address] [address] [address] Spring Nash Protein [Mass/Vol] 5.1 g/dL Critically low 6.4-8.2 [facility] Comment on above: Performed By: #### P OCGLUC #### [facility] [address] [address] [address] Spring Nash Sodium [Moles/Vol] 143 mmol/L Normal 136-145 [facility] Comment on above: Performed By: #### P OCGLUC #### [facility] [address] [address] [address] Spring Nash Urea nitrogen [Mass/Vol] 34.0 mg/dL Critically high 7.0-18.0 [facility] Comment on above: Performed By: #### P OCGLUC #### [facility] [address] [address] [address] Spring Nash Urea nitrogen/Creatinine [Mass ratio] 14.3 mg/mg Normal [facility] Comment on above: Performed By: #### P OCGLUC #### [facility] [address] [address] [address] Spring Nash US KELVIN DOP LEG [...] by: MURRAY YEBOAH Date: 2023-03-04 11:26 Normal [facility] BLOOD GASES BTYon 03-03-2023 02 MODE ROOM AIR Normal [facility] Comment on above: Performed By: #### C MP, HSTROPN, BNP #### [facility] [address] [address] [address] Spring Nash ALLENS TEST Positive Normal [facility] Comment on above: Performed By: #### C MP, HSTROPN, BNP #### [facility] [address] [address] [address] Spring Nash Base excess Calc (Bld) [Moles/Vol] -2.2000 mmol/L Critically low -2.0-2.0 [facility] Comment on above: Performed By: #### C MP, HSTROPN, BNP #### [facility] [address] [address] [address] Spring Nash BIPAP PRESSURE Normal [facility] Comment on above: Performed By: #### C MP, HSTROPN, BNP #### [facility] [address] [address] [address] Spring Nash CPAP Normal [facility] Comment on above: Performed By: #### C MP, HSTROPN, BNP #### [facility] [address] [place] [address] Dr. Spring Nash FIO2 [facility] Comment on above: Performed By: #### C MP, HSTROPN, BNP #### [facility] [address] [address] [address] Spring Nash HCO3 (Bld) [Moles/Vol] 22.8 mmol/L Normal 22.0-26.0 [facility] Comment on above: Performed By: #### C MP, HSTROPN, BNP #### [facility] [address] [place] [address] Dr. Spring Nash [facility] Comment on above: Performed By: #### C MP, HSTROPN, BNP #### [facility] [address] [place] [address] Dr. Spring Nash MINUTE VOLUME Normal [facility] Comment on above: Performed By: #### C MP, HSTROPN, BNP #### [facility] [address] [place] [address] Dr. Spring Nash Oxygen (Bld) [Partial pressure] 86.8 mm[Hg] Normal 80.0-100.0 [facility] Comment on above: Performed By: #### C MP, HSTROPN, BNP #### [facility] [address] [place] [address] Dr. Spring Nash Oxygen saturation in Blood 97.7 % Normal 95.0-100.0 [facility] Comment on above: Performed By: #### C MP, HSTROPN, BNP #### [facility] [address] [place] [address] Dr. Spring Nash PCO2 37.9 mmHg Normal 35.0-45.0 [facility] Comment on above: Performed By: #### C MP, HSTROPN, BNP #### [facility] [address] [place] [address] Dr. Spring Nash PEEP [facility] Comment on above: Performed By: #### C MP, HSTROPN, BNP #### [facility] [address] [place] [address] Dr. Spring Nash pH (Bld) 7.388 [pH] Normal 7.350-7.45 0 [facility] Comment on above: Performed By: #### C MP, HSTROPN, BNP #### [facility] [address] [place] [address] Dr. Spring Nash [facility] Comment on above: Performed By: #### C MP, HSTROPN, BNP #### [facility] [address] [place] [address] Dr. Spring Nash [facility] Comment on above: Performed By: #### C MP, HSTROPN, BNP #### [facility] [address] [place] [address] Dr. Spring Nash PUNCTURE SITE LR [facility] Comment on above: Performed By: #### C MP, HSTROPN, BNP #### [facility] [address] [place] [address] [facility] Comment on above: Performed By: #### C MP, HSTROPN, BNP #### [facility] [address] [place] [address] Dr. Spring Nash [facility] Comment on above: Performed By: #### C MP, HSTROPN, BNP #### [facility] [address] [place] [address] Dr. Spring Nash [facility] Comment on above: Performed By: #### C MP, HSTROPN, BNP #### [facility] [address] [place] [address] Dr. Spring Nash BNPon 03-03-2023 Natriuretic peptide B (Bld) [Mass/Vol] 74618.0 pg/mL Critically high <=900.0 [facility] Comment on above: Performed By: #### C MP, HSTROPN, BNP #### [facility] [address] [place] [address] Dr. Spring Nash CBC AUTO DIFFon 03-03-2023 BASO # 0.0 103/ul Normal 0.0-0.1 [facility] Comment on above: Performed By: #### C MP #### [facility] [address] [address] [address] Spring Nash Basophils/100 WBC (Bld) 0.2 % Normal 0.2-2.0 [facility] Comment on above: Performed By: #### C MP #### [facility] [address] [address] [address] Spring Nash EO # 0.4 103/ul Normal 0.0-0.7 [facility] Comment on above: Performed By: #### C MP #### [facility] [address] [place] [address] Dr. Spring Nash Eosinophils/100 WBC (Bld) 3.2 % Normal 0.9-7.0 [facility] Comment on above: Performed By: #### C MP #### [facility] [facility] [address] [place] [address] Dr. Spring Nash Erythrocyte distribution width (RBC) [Ratio] 15.1 % Critically high 11.0-15.0 [facility] Comment on above: Performed By: #### C MP #### [facility] [address] [place] [address] Dr. Spring Nash Hematocrit (Bld) [Volume fraction] 33.2 % Critically low 42.0-54.0 [facility] Comment on above: Performed By: #### C MP #### [facility] [address] [place] [address] Dr. Spring Nash Hemoglobin (Bld) [Mass/Vol] 10.3 g/dL Critically low 14.0-18.0 [facility] Comment on above: Performed By: #### C MP #### [facility] [address] [place] [address] Dr. Spring Nash IG # 0.08 10e3/ul Critically high 0.00-0.03 [facility] Comment on above: Performed By: #### C MP #### [facility] [address] [place] [address] Dr. Spring Nash IG % 0.7 % Critically high 0.0-0.5 [facility] Comment on above: Performed By: #### C MP #### [facility] [address] [address] [address] Spring Nash LYMPH # 0.9 103/ul Critically low 1.2-3.8 [facility] Comment on above: Performed By: #### C MP #### [facility] [address] [address] [address] Spring Nash Lymphocytes/100 WBC (Bld) 7.5 % Critically low 20.5-60.0 [facility] Comment on above: Performed By: #### C MP #### [facility] [address] [place] [address] Dr. Spring Nash MANUAL DIFF REQ NO Normal [facility] Comment on above: Performed By: #### C MP #### [facility] [address] [place] [address] Dr. Spring Nash MCH (RBC) [Entitic mass] 29.2 pg Normal 25.9-34.0 [facility] Comment on above: Performed By: #### C MP #### [facility] [address] [place] [address] Dr. Spring Nash MCHC (RBC) [Mass/Vol] 31.0 g/dL Normal 29.9-35.2 [facility] Comment on above: Performed By: #### C MP #### [facility] [address] [place] [address] Dr. Spring Nash MCV (RBC) [Entitic vol] 94.1 fL Critically high 80.0-94 .0 [facility] Comment on above: Performed By: #### C MP #### [facility] [address] [place] [address] Dr. Spring Nash MONO # 0.8 103/ul Normal 0.3-0.8 [facility] Comment on above: Performed By: #### C MP #### [facility] [address] [place] [address] Dr. Spring Nash Monocytes/100 WBC (Bld) 6.2 % Normal 1.7-12.0 [facility] Comment on above: Performed By: #### C MP #### [facility] [address] [address] [address] Spring Nash NEUT # 9.9 103/ul Critically high 1.4-6.5 [facility] Comment on above: Performed By: #### C MP #### [facility] [address] [address] [address] Spring Nash Neutrophils/100 WBC (Bld) 82.2 % Critically high 43.0-75.0 [facility] Comment on above: Performed By: #### C MP #### [facility] [address] [address] [address] Spring Nash Platelet mean volume (Bld) [Entitic vol] 11.8 fL Normal 9.5-13.5 [facility] Comment on above: Performed By: #### C MP #### [facility] [address] [address] [address] Spring Nash PLT 196 103/ul Normal 150-450 [facility] Comment on above: Performed By: #### C MP #### [facility] [address] [address] [address] Spring Nash RBC 3.53 106/ul Critically low 4.70-6.10 [facility] Comment on above: Performed By: #### C MP #### [facility] [address] [address] [address] Spring Nash WBC 12.0 103/ul Critically high 4.0-11.0 [facility] Comment on above: Performed By: #### C MP #### [facility] [address] [address] [address] Spring Nash BASO # 0.0 103/ul Normal 0.0-0.1 [facility] Comment on above: Performed By: #### C MP #### [facility] [address] [address] [address] Spring Nash Basophils/100 WBC (Bld) 0.3 % Normal 0.2-2.0 [facility] Comment on above: Performed By: #### C MP #### [facility] [address] [address] [address] Spring Nash EO # 0.5 103/ul Normal 0.0-0.7 [facility] Comment on above: Performed By: #### C MP #### [facility] [address] [address] [address] Spring Nash Eosinophils/100 WBC (Bld) 3.8 % Normal 0.9-7.0 [facility] Comment on above: Performed By: #### C MP #### [facility] [address] [address] [address] Spring Nash Erythrocyte distribution width (RBC) [Ratio] 14.9 % Normal 11.0-15.0 [facility] Comment on above: Performed By: #### C MP #### [facility] [address] [place] [address] Dr. Spring Nash Hematocrit (Bld) [Volume fraction] 33.1 % Critically low 42.0-54.0 [facility] Comment on above: Performed By: #### C MP #### [facility] [address] [place] [address] Dr. Spring Nash Hemoglobin (Bld) [Mass/Vol] 10.6 g/dL Critically low 14.0-18.0 [facility] Comment on above: Performed By: #### C MP #### [facility] [address] [address] [address] Spring Nash IG # 0.07 10e3/ul Critically high 0.00-0.03 [facility] Comment on above: Performed By: #### C MP #### [facility] [address] [place] [address] Dr. Spring Nash IG % 0.6 % Critically high 0.0-0.5 [facility] Comment on above: Performed By: #### C MP #### [facility] [address] [place] [address] Dr. Spring Nash LYMPH # 1.1 103/ul Critically low 1.2-3.8 [facility] Comment on above: Performed By: #### C MP #### [facility] [address] [place] [address] Dr. Spring Nash Lymphocytes/100 WBC (Bld) 9.2 % Critically low 20.5-60.0 [facility] Comment on above: Performed By: #### C MP #### [facility] [address] [place] [address] Dr. Spring Nash MANUAL DIFF REQ NO Normal [facility] Comment on above: Performed By: #### C MP #### [facility] [address] [place] [address] Dr. Spring Nash MCH (RBC) [Entitic mass] 29.7 pg Normal 25.9-34.0 [facility] Comment on above: Performed By: #### C MP #### [facility] [address] [place] [address] Dr. Spring Nash MCHC (RBC) [Mass/Vol] 32.0 g/dL Normal 29.9-35.2 [facility] Comment on above: Performed By: #### C MP #### [facility] [address] [place] [address] Dr. Spring Nash MCV (RBC) [Entitic vol] 92.7 fL Normal 80.0-94.0 [facility] Comment on above: Performed By: #### C MP #### [facility] [address] [place] [address] Dr. Spring Nash MONO # 0.7 103/ul Normal 0.3-0.8 [facility] Comment on above: Performed By: #### C MP #### [facility] [address] [place] [address] Dr. Spring Nash Monocytes/100 WBC (Bld) 6.1 % Normal 1.7-12.0 [facility] Comment on above: Performed By: #### C MP #### [facility] [address] [place] [address] Dr. Spring Nash NEUT # 9.4 103/ul Critically high 1.4-6.5 [facility] Comment on above: Performed By: #### C MP #### [facility] [address] [address] [address] Spring Nash Neutrophils/100 WBC (Bld) 80.0 % Critically high 43.0-75.0 [facility] Comment on above: Performed By: #### C MP #### [facility] [address] [address] [address] Spring Nash Platelet mean volume (Bld) [Entitic vol] 11.8 fL Normal 9.5-13.5 [facility] Comment on above: Performed By: #### C MP #### [facility] [address] [address] [address] Spring Nash PLT 210 103/ul Normal 150-450 [facility] Comment on above: Performed By: #### C MP #### [facility] [address] [address] [address] Spring Nash RBC 3.57 106/ul Critically low 4.70-6.10 [facility] Comment on above: Performed By: #### C MP #### [facility] [address] [address] [address] Spring Nash WBC 11.7 103/ul Critically high 4.0-11.0 [facility] Comment on above: Performed By: #### C MP #### [facility] [address] [place] [address] Dr. Spring Nash CRPon 03-03-2023 CRP 1.0 mg/dL Normal <=1.0 [facility] Comment on above: Performed By: #### B MP #### [facility] [address] [place] [address] Dr. Spring Nash CTA CHEST WO W [...] LOTTIE NESBITT Date: 2023-03-03 00:50 Normal [facility] D-DIMERon 03-03-2023 D-DIMER 0.67 mg/L FEU Critically high <=0.59 [facility] Comment on above: Performed By: #### P OCGLUC #### [facility] [address] [address] [address] Spring Nash D-DIMER COMMENTS SEE BELOW Normal [facility] Comment on above: Result Comment: Incr eases [...] hospitalization. Performed By: #### P OCGLUC #### [facility] [address] [address] [address] Spring Nash POINT OF CARE GLUCOSEon 02-12 Glucose [Mass/Vol] 233 mg/dL Critically high 74-106 [facility] Comment on above: Performed By: #### P OCGLUC #### [facility] [address] [address] [address] Spring Nash Glucose [Mass/Vol] 177 mg/dL Critically high 74-106 [facility] Comment on above: Performed By: #### P OCGLUC #### [facility] [address] [place] [address] Dr. Spring Nash Glucose [Mass/Vol] 268 mg/dL Critically high 74-106 [facility] Comment on above: Performed By: #### P OCGLUC #### [facility] [address] [place] [address] Dr. Spring Nash PROF 14(COMP METB)on 023 Albumin [Mass/Vol] 2.6 g/dL Critically low 3.4-5.0 [facility] Comment on above: Performed By: #### C MP, HSTROPN, BNP #### [facility] [address] [place] [address] Dr. Spring Nash Albumin/Globulin [Mass ratio] 0.8 {ratio} Normal [facility] Comment on above: Performed By: #### C MP, HSTROPN, BNP #### [facility] [address] [place] [address] Dr. Spring Nash ALP [Catalytic activity/Vol] 160 U/L Critically high 46-116 [facility] Comment on above: Performed By: #### C MP, HSTROPN, BNP #### [facility] [address] [place] [address] Dr. Spring Nash ALT [Catalytic activity/Vol] 17 U/L Normal 16-63 [facility] Comment on above: Performed By: #### C MP, HSTROPN, BNP #### [facility] [address] [place] [address] Dr. Spring Nash Anion gap [Moles/Vol] 14.8 mmol/L Normal [facility] Comment on above: Performed By: #### C MP, HSTROPN, BNP #### [facility] [address] [place] [address] Dr. Spring Nash AST [Catalytic activity/Vol] 17 U/L Normal 15-37 [facility] Comment on above: Performed By: #### C MP, HSTROPN, BNP #### [facility] [address] [address] [address] Spring Nash Bilirubin [Mass/Vol] 0.5 mg/dL Normal 0.2-1.0 [facility] Comment on above: Performed By: #### C MP, HSTROPN, BNP #### [facility] [address] [place] [address] Dr. Spring Nash Calcium [Mass/Vol] 8.3 mg/dL Critically low 8.5-10.1 [facility] e [facility] Comment on above: Performed By: #### C MP, HSTROPN, BNP #### [facility] [address] [place] [address] Dr. Spring Nash Chloride [Moles/Vol] 106 mmol/L Normal 98-107 [facility] Comment on above: Performed By: #### C MP, HSTROPN, BNP #### [facility] [address] [place] [address] Dr. Spring Nash CO2 [Moles/Vol] 21.9 mmol/L Normal 21.0-32.0 [facility] Comment on above: Performed By: #### C MP, HSTROPN, BNP #### [facility] [address] [place] [address] Dr. Spring Nash Creatinine [Mass/Vol] 2.00 mg/dL Critically high 0.70-1.30 [facility] Comment on above: Performed By: #### C MP, HSTROPN, BNP #### [facility] [address] [place] [address] Dr. Spring Nash EGFR-AF SOUTH AFRICAN 43 mL/min/1.73m2 Critically low >=60 [facility] Comment on above: Performed By: #### C MP, HSTROPN, BNP #### [facility] [address] [place] [address] Dr. Spring Nash EGFR-NON AF SOUTH [place]FR[place] 35 mL/min/1.73m2 Critically low >=60 [facility] Comment on above: Performed By: #### C MP, HSTROPN, BNP #### [facility] [address] [place] [address] Dr. Spring Nash Globulin (S) [Mass/Vol] 3.3 g/dL Normal [facility] Comment on above: Performed By: #### C MP, HSTROPN, BNP #### [facility] [address] [place] [address] Dr. Spring Nash Glucose [Mass/Vol] 306 mg/dL Critically high 74-106 [facility] Comment on above: Performed By: #### C MP, HSTROPN, BNP #### [facility] [address] [place] [address] Dr. Spring Nash Potassium [Moles/Vol] 3.7 mmol/L Normal 3.5-5.1 [facility] Comment on above: Performed By: #### C MP, HSTROPN, BNP #### [facility] [address] [place] [address] Dr. Spring Nash Protein [Mass/Vol] 5.9 g/dL Critically low 6.4-8.2 [facility] Comment on above: Performed By: #### C MP, HSTROPN, BNP #### [facility] [address] [place] [address] Dr. Spring Nash Sodium [Moles/Vol] 139 mmol/L Normal 136-145 [facility] Comment on above: Performed By: #### C MP, HSTROPN, BNP #### [facility] [address] [place] [address] Dr. Spring Nash Urea nitrogen [Mass/Vol] 30.0 mg/dL Critically high 7.0-18.0 [facility] Comment on above: Performed By: #### C MP, HSTROPN, BNP #### [facility] [address] [place] [address] Dr. Spring Nash Urea nitrogen/Creatinine [Mass ratio] 15.0 mg/mg Normal [facility] Comment on above: Performed By: #### C MP, HSTROPN, BNP #### [facility] [address] [place] [address] Dr. Spring Nash Albumin [Mass/Vol] 2.7 g/dL Critically low 3.4-5.0 [facility] Comment on above: Performed By: #### C MP, HSTROPN, BNP #### [facility] [address] [place] [address] Dr. Spring Nash Albumin/Globulin [Mass ratio] 0.8 {ratio} Normal [facility] Comment on above: Performed By: #### C MP, HSTROPN, BNP #### [facility] [address] [place] [address] Dr. Spring Nash ALP [Catalytic activity/Vol] 188 U/L Critically high 46-116 [facility] Comment on above: Performed By: #### C MP, HSTROPN, BNP #### [facility] [address] [place] [address] Dr. Spring Nash ALT [Catalytic activity/Vol] 19 U/L Normal 16-63 [facility] Comment on above: Performed By: #### C MP, HSTROPN, BNP #### [facility] [address] [place] [address] Dr. Spring Nash Anion gap [Moles/Vol] 14.4 mmol/L Normal [facility] Comment on above: Performed By: #### C MP, HSTROPN, BNP #### [facility] [address] [place] [address] Dr. Spring Nash AST [Catalytic activity/Vol] 18 U/L Normal 15-37 [facility] Comment on above: Performed By: #### C MP, HSTROPN, BNP #### [facility] [address] [place] [address] Dr. Spring Nash Bilirubin [Mass/Vol] 0.4 mg/dL Normal 0.2-1.0 [facility] Comment on above: Performed By: #### C MP, HSTROPN, BNP #### [facility] [address] [place] [address] Dr. Spring Nash Calcium [Mass/Vol] 8.3 mg/dL Critically low 8.5-10.1 [facility] Comment on above: Performed By: #### C MP, HSTROPN, BNP #### [facility] [address] [address] [address] Spring Nash Chloride [Moles/Vol] 106 mmol/L Normal 98-107 [facility] Comment on above: Performed By: #### C MP, HSTROPN, BNP #### [facility] [address] [place] [address] Dr. Spring Nash CO2 [Moles/Vol] 23.7 mmol/L Normal 21.0-32.0 [facility] Comment on above: Performed By: #### C MP, HSTROPN, BNP #### [facility] [address] [place] [address] Dr. Spring Nash Creatinine [Mass/Vol] 2.10 mg/dL Critically high 0.70-1.30 [facility] Comment on above: Performed By: #### C MP, HSTROPN, BNP #### [facility] [address] [place] [address] Dr. Spring Nash EGFR-AF S[place] 41 mL/min/1.73m2 Critically low >=60 [facility] Comment on above: Performed By: #### C MP, HSTROPN, BNP #### [facility] [address] [place] [address] Dr. Spring Nash EGFR-NON AF [place]FR[place] 33 mL/min/1.73m2 Critically low >=60 [facility] Comment on above: Performed By: #### C MP, HSTROPN, BNP #### [facility] [address] [place] [address] Dr. Spring Nash Globulin (S) [Mass/Vol] 3.4 g/dL Normal [facility] Comment on above: Performed By: #### C MP, HSTROPN, BNP #### [facility] [address] [place] [address] Dr. Spring Nash Glucose [Mass/Vol] 343 mg/dL Critically high 74-106 [facility] Comment on above: Performed By: #### C MP, HSTROPN, BNP #### [facility] [address] [address] [address] Spring Nash Potassium [Moles/Vol] 4.1 mmol/L Normal 3.5-5.1 [facility] Comment on above: Performed By: #### C MP, HSTROPN, BNP #### [facility] [address] [address] [address] Spring Nash Protein [Mass/Vol] 6.1 g/dL Critically low 6.4-8.2 [facility] Comment on above: Performed By: #### C MP, HSTROPN, BNP #### [facility] [address] [address] [address] Spring Nash Sodium [Moles/Vol] 140 mmol/L Normal 136-145 [facility] Comment on above: Performed By: #### C MP, HSTROPN, BNP #### [facility] [address] [place] [address] Dr. Spring Nash Urea nitrogen [Mass/Vol] 29.0 mg/dL Critically high 7.0-18.0 [facility] Comment on above: Performed By: #### C MP, HSTROPN, BNP #### [facility] [address] [place] [address] Dr. Spring Nash Urea nitrogen/Creatinine [Mass ratio] 13.8 mg/mg Normal [facility] Comment on above: Performed By: #### C MP, HSTROPN, BNP #### [facility] [address] [address] [address] Spring Nash [id number] 52 mm/hr Critically high <=20 [facility] Comment on above: Performed By: #### C MP, HSTROPN, BNP #### [facility] [address] [place] [address] Dr. Spring Nash TROPONIN, HIGH SENSITIVITYon 03-03-2023 HSTROP 44.7 pg/mL Normal 4.0-76.1 [facility] Comment on above: Result Comment: CUT- OFF POINTS HAVE BEEN ESTABLISHED BASED ON THE FOURTH UNIVERSAL DEFINITIONS OF MYOCARDIAL INFARCTION. THE UPPER REFERENCE LIMIT (URL) OF TROPONIN, DEFINED THE 99TH PERCENTILE OF cTnI DISTRIBUTION IN A REFERENCE POPULATION, HAS BEEN CONFIRMED THE DECISION THRESHOLD FOR [place] DIAGNOSIS. Performed By: #### C MP, HSTROPN, BNP #### [facility] [address] [place] [address] Dr. Spring Nash URIC ACID SERUMon 03-03-2023 Urate [Mass/Vol] 7.3 mg/dL Critically high 3.5-7.2 [facility] Comment on above: Performed By: #### B MP #### [facility] [address] [address] [address] Spring Nash Covid-19 PCR ([facility])on 01-13 SARS-CoV-2 (COVID-19) RNA HONEY+probe Ql (Unsp spec) Not detected Normal NOT DETECTED [facility] Comment on above: Result Comment: This test is not yet approved or cleared by the [place] FDA. When there are no FDA-approved or cleared tests available, and other criteria are met, FDA can make tests available under an emergency access mechanism called an Emergency Use Authorization (EUA). The EUA for this test is supported by the Entry Level Manager of Health and Human Service's (HHS's) declaration [...] By: #### C MP, HSTROPN, BNP #### [facility] [address] [address] [address] Spring Nash INFLUENZA A AND B AGon 01-31 INFLUANEGH SEE BELOW Normal [facility] Comment on above: Result Comment: Nega tive for Flu A protein angiten. Infection due to Flu A cannot be ruled out. Flu A angiten in the sample may be below the detection limit of the test. Performed By: #### C MP, HSTROPN, BNP #### [facility] [address] [place] [address] Dr. Spring Nash INFLUBNEGH SEE BELOW Normal [facility] Comment on above: Result Comment: Nega tive for Flu B protein antigen. Infection due to Flu B cannot be ruled out. Flu B antigen in the sample may be below the detection limit of the test. Performed By: #### C MP, HSTROPN, BNP #### [facility] [address] [place] [address] Dr. Spring Nash INFLUENZA A AG Negative Normal NEGATIVE SEE COMMENT [facility] Comment on above: Performed By: #### C MP, HSTROPN, BNP #### [facility] [address] [place] [address] Dr. Spring Nash INFLUENZA B AG Negative Normal NEGATIVE SEE COMMENT [facility] Comment on above: Performed By: #### C MP, HSTROPN, BNP #### [facility] [address] [place] [address] Dr. Spring Nash SYMPTOMATIC COVID-19 ANTIGEN on 01-31-2023 EUA Statement SEE BELOW Normal [facility] Comment on above: Result Comment: This [...] sooner. Performed By: #### P OCGLUC #### [facility] [address] [place] [address] Dr. Spring Nash SARS-CoV-2 (COVID-19) RNA HONEY+probe Ql (Unsp spec) Negative Normal NEGATIVE [facility] Comment on above: Performed By: #### P OCGLUC #### [facility] [address] [place], [place] [address] Dr. Spring Nash Study observation Right reti na by OCTon 01-08-2023 [facility] Study observation (narrative) [facility] Telephone Encounteron 2022 Pcts Authentication Interface Message Text Pt's family member Ayla Minor called to let us know that pt is admitted to the hospital currently so he would need to have the urgent eye appt for tomorrow rescheduled. Contact Ayla @[phone] Normal [facility] Telephone Encounteron 2022 Pcts Authentication Interface Message Text Patient states can come in next Saturday at 10 am Normal [facility] Patient Instructionson 01-01 Pcts Authentication Interface Message Text Use the provided [...] an appointment for next Saturday. Normal [facility] Progress Noteson 01-01-2023 Pcts Authentication Interface Message Text Urgent visit for [...] resident's note. Brady Lowry MD Normal [facility] Telephone Encounteron 2022 Pcts Authentication Interface Message Text On chart review, [...] patient in for an urgent visit at [facility] Eye clinic located 3rd floor [facility] Urgent visit today at 2:00 PM. Dilate OU Lyndsay Cooper MD Ophthalmology Resident, PGY-2 Normal [facility] Pcts Authentication Interface Message Text Mr. Minor is a patient of Dr. Frank. He cannot see out of his R eye... sees nothing. States he woke up today with eye unable to open due to discharge. Believes he has an infection. He can be reached at [phone]. Normal [facility] FUNDUS PHOTOS - OU - BOTH EY ESon 12-19-2022 Right Eye Macula findings include microaneurysms. Periphery findings include hemorrhage. Left Eye Macula findings include microaneurysms. Periphery findings include hemorrhage, neovascularization. [facility] Radiology Study observation (narrative) [facility] CUI RETINAL PHOTOCOAGULATION - OU - BOTH EYESon 12-19-2022 [facility] Study observation (narrative) [facility] Progress Noteson 12-19-2022 Pcts Authentication Interface Message Text Lost to f/u [...] Dilate OU OCT mac OU Normal [facility] Study observation Right reti na by 12-19-2022 [facility] Study observation (narrative) [facility] INTRAVITREAL INJECTION, PHAR MACOLOGIC AGENT - OU [...] mL Route: Intravitreal, Site: Right Eye Lot: [id number], Expiration date: 10/18/2022 Left Eye Preparation included 10% betadine to eyelids. A 30 gauge needle was used. Injection Medications: 1.25 mg bevacizumab 1.25MG/0.05 mL Route: Intravitreal, Site: Left Eye Lot: [id number], Expiration date: 10/18/2022 Post-op Right Eye Post [...] written and verbal post procedure care education. [facility] Radiology Study observation (narrative) [facility] Study observation Right reti na by 10-17-2022 [facility] Rad[facility] Study observation (narrative) [facility] CBC W MANUAL DIFFon 10-04-20 22 ATYPICAL LYMPH # Normal [facility] Comment on above: Performed By: #### C SHIRA #### [facility] [address] [place] [address] Dr. Spring Nash ATYPICAL LYMPH % Normal [facility] Comment on above: Performed By: #### C BCMAN #### [facility] [address] [place] [address] Dr. Spring Nash BAND # 0.0 103/ul Normal 0.0-0.3 [facility] Comment on above: Performed By: #### C BCMAN #### [facility] [address] [place] [address] Dr. Spring Nash BAND % 0 % Normal 0-5 [facility] Comment on above: Performed By: #### C BCMAN #### [facility] [address] [place] [address] Dr. Spring Nash BASOM # 0.00 103/ul Normal 0.00-0.10 [facility] Comment on above: Performed By: #### C BCMAN #### [facility] [address] [place] [address] Dr. Spring Nash BASOM % 0.0 % Critically low 0.2-2.0 [facility] Comment on above: Performed By: #### C BCMAN #### [facility] [address] [place] [address] Dr. Spring Nash BLAST # Normal [facility] Comment on above: Performed By: #### C BCMAN #### [facility] [address] [place] [address] Dr. Spring Nash BLAST % Normal [facility] Comment on above: Performed By: #### C BCMAN #### [facility] [address] [place] [address] Dr. Spring Nash CORRECTED WBC Normal 4.0-11.0 [facility] Comment on above: Performed By: #### C BCMAN #### [facility] [address] [place] [address] Dr. Spring Nash EOS # 0.00 103/ul Normal 0.00-0.70 [facility] Comment on above: Performed By: #### C BCMAN #### [facility] [address] [place] [address] Dr. Spring Nash EOS% 0.0 % Critically low 0.9-7.0 [facility] Comment on above: Performed By: #### C BCERICKSON #### [facility] [address] [address] [address] Spring Nash HCT 28.5 % Critically low 42.0-54.0 [facility] Comment on above: Performed By: #### C SHIRA #### [facility] [address] [address] [address] Spring Nash HGB 9.5 g/dl Critically low 14.0-18.0 [facility] Comment on above: Performed By: #### C SHIRA #### [facility] [address] [address] [address] Spring Nash LYMPHM # 0.00 103/ul Critically low 1.20-3.80 [facility] Comment on above: Performed By: #### C SHIRA #### [facility] [address] [place] [address] Dr. Spring Nash LYMPHM% 0.0 % Critically low 20.5-60.0 [facility] Comment on above: Performed By: #### C SHIRA #### [facility] [address] [place] [address] Dr. Spring Nash MCH 30.3 pg Normal 25.9-34.0 [facility] Comment on above: Performed By: #### C SHIRA #### [facility] [address] [address] [address] Spring Nash MCHC 33.3 g/dl Normal 29.9-35.2 [facility] Comment on above: Performed By: #### C SHIRA #### [facility] [address] [address] [address] Spring Nash MCV 90.8 fL Normal 80.0-94.0 [facility] Comment on above: Performed By: #### C SHIRA #### [facility] [address] [address] [address] Spring Nash METAMYELOCYTE # Normal [facility] Comment on above: Performed By: #### C SHIRA #### [facility] [address] [address] [address] Spring Nash METAMYELOCYTE % Normal [facility] Comment on above: Performed By: #### C SHIRA #### [facility] [address] [address] [address] Spring Nash MONOM# 0.00 103/ul Critically low 0.30-0.80 [facility] Comment on above: Performed By: #### C SHIRA #### [facility] [address] [address] [address] Spring Nash MONOM% 0.0 % Critically low 1.7-12.0 [facility] Comment on above: Performed By: #### C SHIRA #### [facility] [address] [place] [address] Dr. Spring Nash MPV 12.0 fL Normal 9.5-13.5 [facility] Comment on above: Performed By: #### C SHIRA #### [facility] [address] [place] [address] Dr. Spring Nash MYELOCYTE # Normal [facility] Comment on above: Performed By: #### C SHIRA #### [facility] [address] [place] [address] Dr. Spring Nash MYELOCYTE % Normal [facility] Comment on above: Performed By: #### C SHIRA #### [facility] [address] [place] [address] Dr. Spring Nash NRBC Normal [facility] Comment on above: Performed By: #### C SHIRA #### [facility] [address] [place] [address] Dr. Spring Nash PLT 182 103/ul Normal 150-450 [facility] Comment on above: Performed By: #### C SHIRA #### [facility] [address] [place] [address] Dr. Spring Nash RBC 3.14 106/ul Critically low 4.70-6.10 [facility] Comment on above: Performed By: #### C SHIRA #### [facility] [address] [place] [address] Dr. Spring Nash RDW 13.4 % Normal 11.0-15.0 [facility] Comment on above: Performed By: #### C SHIRA #### [facility] [address] [address] [address] Spring Nash SEG # 11.40 103/ul Critically high 1.40-6.50 [facility] Comment on above: Performed By: #### C BCMAN #### [facility] [address] [address] [address] Spring Nash SEG % 100.0 % Critically high 43.0-75.0 [facility] Comment on above: Performed By: #### C SHIRA #### [facility] [address] [address] [address] Spring Nash WBC 11.4 103/ul Critically high 4.0-11.0 [facility] Comment on above: Performed By: #### C SHIRA #### [facility] [address] [place] [address] Dr. Spring Nash POINT OF CARE GLUCOSEon 09-14 Glucose [Mass/Vol] 243 mg/dL Critically high 74-106 [facility] Comment on above: Performed By: #### P OCGLUC #### [facility] [address] [place] [address] Dr. Spring Nash Glucose [Mass/Vol] 219 mg/dL Critically high 74-106 [facility] Comment on above: Performed By: #### P OCGLUC #### [facility] [address] [place] [address] Dr. Spring Nash PROF 14(COMP METB)on 022 Albumin [Mass/Vol] 2.5 g/dL Critically low 3.4-5.0 [facility] Comment on above: Performed By: #### C MP #### [facility] [address] [place] [address] Dr. Spring Nash Albumin/Globulin [Mass ratio] 0.7 {ratio} Normal [facility] Comment on above: Performed By: #### C MP #### [facility] [address] [place] [address] Dr. Spring Nash ALP [Catalytic activity/Vol] 96 U/L Normal 46-116 [facility] Comment on above: Performed By: #### C MP #### [facility] [address] [place] [address] Dr. Spring Nash ALT [Catalytic activity/Vol] 16 U/L Normal 16-63 [facility] Comment on above: Performed By: #### C MP #### [facility] [address] [place] [address] Dr. Spring Nash Anion gap [Moles/Vol] 12.3 mmol/L Normal [facility] Comment on above: Performed By: #### C MP #### [facility] [address] [place] [address] Dr. Spring Nash AST [Catalytic activity/Vol] 20 U/L Normal 15-37 [facility] Comment on above: Performed By: #### C MP #### [facility] [address] [place] [address] Dr. Spring Nash Bilirubin [Mass/Vol] 0.2 mg/dL Normal 0.2-1.0 [facility] Comment on above: Performed By: #### C MP #### [facility] [address] [place] [address] Dr. Spring Nash Calcium [Mass/Vol] 8.2 mg/dL Critically low 8.5-10.1 [facility] Comment on above: Performed By: #### C MP #### [facility] [address] [place] [address] Dr. Spring Nsah Chloride [Moles/Vol] 102 mmol/L Normal 98-107 [facility] Comment on above: Performed By: #### C MP #### [facility] [address] [place] [address] Dr. Spring Nash CO2 [Moles/Vol] 24.4 mmol/L Normal 21.0-32.0 [facility] Comment on above: Performed By: #### C MP #### [facility] [address] [place] [address] Dr. Spring Nash Creatinine [Mass/Vol] 1.96 mg/dL Critically high 0.70-1.30 [facility] Comment on above: Performed By: #### C MP #### [facility] [address] [address] [address] Spring Nash EGFR-AF SOUTH AFRICAN 44 mL/min/1.73m2 Critically low >=60 [facility] Comment on above: Performed By: #### C MP #### [facility] [address] [address] [address] Spring Nash EGFR-NON AF SOUTH AFRICAN 36 mL/min/1.73m2 Critically low >=60 [facility] Comment on above: Performed By: #### C MP #### [facility] [address] [address] [address] Spring Nash Globulin (S) [Mass/Vol] 3.5 g/dL Normal [facility] Comment on above: Performed By: #### C MP #### [facility] [address] [address] [address] Spring Nash Glucose [Mass/Vol] 196 mg/dL Critically high 74-106 [facility] Comment on above: Performed By: #### C MP #### [facility] [address] [address] [address] Spring Nash Potassium [Moles/Vol] 4.7 mmol/L Normal 3.5-5.1 [facility] Comment on above: Performed By: #### C MP #### [facility] [address] [address] [address] Spring Nash Protein [Mass/Vol] 6.0 g/dL Critically low 6.4-8.2 [facility] Comment on above: Performed By: #### C MP #### [facility] [address] [place] [address] Dr. Spring Nash Sodium [Moles/Vol] 134 mmol/L Critically low 136-145 [facility] Comment on above: Performed By: #### C MP #### [facility] [address] [address] [address] Spring Nash Urea nitrogen [Mass/Vol] 47.0 mg/dL Critically high 7.0-18.0 [facility] Comment on above: Performed By: #### C MP #### [facility] [address] [place] [address] Dr. Spring Nash Urea nitrogen/Creatinine [Mass ratio] 24.0 mg/mg Normal [facility] Comment on above: Performed By: #### C MP #### [facility] [address] [place] [address] Dr. Spring Nash CARDIAC EDWARD 3-6on 2 CK [Catalytic activity/Vol] 262 U/L Normal 39-308 [facility] Comment on above: Performed By: #### C MP, HSTROPN, BNP #### [facility] [address] [place] [address] Dr. Spring Nash CK.MB [Mass/Vol] 3.55 ng/mL Normal <=3.60 [facility] Comment on above: Performed By: #### C MP, HSTROPN, BNP #### [facility] [address] [place] [address] Dr. Spring Nash HSTROP 25.8 pg/mL Normal 4.0-76.1 [facility] Comment on above: Result Comment: CUT- OFF POINTS HAVE BEEN ESTABLISHED BASED ON THE FOURTH UNIVERSAL DEFINITIONS OF MYOCARDIAL INFARCTION. THE UPPER REFERENCE LIMIT (URL) OF TROPONIN, DEFINED THE 99TH PERCENTILE OF cTnI DISTRIBUTION IN A REFERENCE POPULATION, HAS BEEN CONFIRMED THE DECISION THRESHOLD FOR [place] DIAGNOSIS. Performed By: #### C MP, HSTROPN, BNP #### [facility] [address] [place] [address] Dr. Spring Nash CTA CHEST WO W [...] artery calcifications. Central airway is patent. Developing rysak-yi-cbyyallb bilateral pleural effusions occupying 20-30% of each [...] artifact and are not well evaluated. Developing defpx-dk-hcwojgby bilateral pleural effusions occupying 20-30% of each [...] by: SHRUTI HANCOCK Date: 2022-10-02 22:48 Normal [facility] ECHO LIMITED STUDYon 022 ECHO LIMITED STUDY Patient: MELVI MINOR Exam Date: 10/03/2022 : 1970 Gender:M Ordering : DR KEVON CASTELLANO . Admission #: [id number] Family : DR FADI TENORIO D.O. Order #: [id number] CLICK HERE TO VIEW EXAM ECHOCARDIOGRAM REPORT [...] Lord M.D. on 10/03/2022 at 13:17 Normal [facility] GLUCOSE BLOODon 10-03-2022 Glucose [Mass/Vol] 551 mg/dL Critically high 74-106 [facility] Comment on above: Performed By: #### B MP #### [facility] [address] [place] [address] Dr. Spring Nash GLYCOHEMOGLOBIN A1Con 2021 ADA RECOMMENDATION SEE BELOW Normal [facility] Comment on above: Result Comment: ADA RECOMMENDED LIMIT 4.0 - 6.0 ADA THERAPEUTIC TARGET < 7.0 ACTION SUGGESTED > 7.0 Performed By: #### B MP #### [facility] [address] [address] [address] Spring Nash Glucose [Mass/Vol] 301 mg/dL Normal [facility] Comment on above: Performed By: #### B MP #### [facility] [address] [address] [address] Spring Nash HbA1c (Bld) [Mass fraction] 12.1 % Critically high 4.5-6.2 [facility] Comment on above: Performed By: #### B MP #### [facility] [address] [place] [address] Dr. Spring Nash POINT OF CARE GLUCOSEon 09-14 Glucose [Mass/Vol] 367 mg/dL Critically high [facility] Comment on above: Performed By: #### C SHAUN VERDE, BNP #### [facility] [address] [place] [address] Dr. Spring Nash Glucose [Mass/Vol] 215 mg/dL Critically high [address] [place] [address] Comment on above: Performed By: #### C SHAUN VERDE, BNP #### [facility] [address] [place] [address] Dr. Spring Nash Glucose [Mass/Vol] 404 mg/dL Critically high [address] [place] [address] Comment on above: Performed By: #### P OCGLUC #### [facility] [address] [place] [address] Dr. Spring Nash Glucose [Mass/Vol] 486 mg/dL Critically high [address] [place] [address] Comment on above: Performed By: #### P OCGLUC #### [facility] [address] [place] [address] Dr. Spring Nash Glucose [Mass/Vol] 542 mg/dL Critically high [facility] Comment on above: Result Comment: Resu lt Not Confirmed Performed By: #### P OCGLUC #### [facility] [address] [place] [address] Dr. Spring Nash ACETONE SERUMon 10-02-2022 ACETONE Negative Normal NEGATIVE [facility] Comment on above: Performed By: #### P OCGLUC #### [facility] [address] [place] [address] Dr. Spring Nash BNPon 10-02-2022 Natriuretic peptide B (Bld) [Mass/Vol] 3142.0 pg/mL Critically high <=900.0 [facility] Comment on above: Performed By: #### P OCGLUC #### [facility] [address] [place] [address] Dr. Spring Nash CARDIAC EDWARD 3-6on 2 CK [Catalytic activity/Vol] 250 U/L Normal 39-308 [facility] Comment on above: Performed By: #### P OCGLUC #### [facility] [address] [place] [address] Dr. Spring Nash CK.MB [Mass/Vol] 3.41 ng/mL Normal <=3.60 [facility] Comment on above: Performed By: #### P OCGLUC #### [facility] [address] [place] [address] Dr. Spring Nash HSTROP 27.1 pg/mL Normal 4.0-76.1 [facility] Comment on above: Result Comment: CUT- OFF POINTS HAVE BEEN ESTABLISHED BASED ON THE FOURTH UNIVERSAL DEFINITIONS OF MYOCARDIAL INFARCTION. THE UPPER REFERENCE LIMIT (URL) OF TROPONIN, DEFINED THE 99TH PERCENTILE OF cTnI DISTRIBUTION IN A REFERENCE POPULATION, HAS BEEN CONFIRMED THE DECISION THRESHOLD FOR [place] DIAGNOSIS. Performed By: #### P OCGLUC #### [facility] [address] [place] [address] Dr. Spring Nash CBC AUTO DIFFon 10-02-2022 BASO # 0.0 103/ul Normal 0.0-0.1 [facility] Comment on above: Performed By: #### C MP #### [facility] [address] [place] [address] Dr. Spring Nash Basophils/100 WBC (Bld) 0.2 % Normal 0.2-2.0 [facility] Comment on above: Performed By: #### C MP #### [facility] [address] [address] [address] Spring Nash EO # 0.4 103/ul Normal 0.0-0.7 [facility] Comment on above: Performed By: #### C MP #### [facility] [address] [place] [address] Dr. Spring Nash Eosinophils/100 WBC (Bld) 3.5 % Normal 0.9-7.0 [facility] Comment on above: Performed By: #### C MP #### [facility] [address] [place] [address] Dr. Spring Nash Erythrocyte distribution width (RBC) [Ratio] 13.0 % Normal 11.0-15.0 [facility] Comment on above: Performed By: #### C MP #### [facility] [address] [place] [address] Dr. Spring Nash Hematocrit (Bld) [Volume fraction] 34.2 % Critically low 42.0-54.0 [facility] Comment on above: Performed By: #### C MP #### [facility] [address] [place] [address] Dr. Spring Nash Hemoglobin (Bld) [Mass/Vol] 11.8 g/dL Critically low 14.0-18.0 [facility] Comment on above: Performed By: #### C MP #### [facility] [address] [place] [address] Dr. Spring Nash IG # 0.07 10e3/ul Critically high 0.00-0.03 [facility] Comment on above: Performed By: #### C MP #### [facility] [address] [place] [address] Dr. Spring Nash IG % 0.6 % Critically high 0.0-0.5 [facility] Comment on above: Performed By: #### C MP #### [facility] [address] [place] [address] Dr. Spring Nash LYMPH # 1.2 103/ul Normal 1.2-3.8 [facility] Comment on above: Performed By: #### C MP #### [facility] [address] [address] [address] Spring Nash Lymphocytes/100 WBC (Bld) 9.5 % Critically low 20.5-60.0 [facility] Comment on above: Performed By: #### C MP #### [facility] [address] [place] [address] Dr. Spring Nash MANUAL DIFF REQ NO Normal [facility] Comment on above: Performed By: #### C MP #### [facility] [address] [address] [address] Spring Nash MCH (RBC) [Entitic mass] 31.3 pg Normal 25.9-34.0 [facility] Comment on above: Performed By: #### C MP #### [facility] [address] [place] [address] Dr. Spring Nash MCHC (RBC) [Mass/Vol] 34.5 g/dL Normal 29.9-35.2 [facility] Comment on above: Performed By: #### C MP #### [facility] [address] [place] [address] Dr. Spring Nash MCV (RBC) [Entitic vol] 90.7 fL Normal 80.0-94.0 [facility] Comment on above: Performed By: #### C MP #### [facility] [address] [place] [address] Dr. Spring Nash MONO # 0.6 103/ul Normal 0.3-0.8 [facility] Comment on above: Performed By: #### C MP #### [facility] [address] [place] [address] Dr. Spring Nash Monocytes/100 WBC (Bld) 4.8 % Normal 1.7-12.0 [facility] Comment on above: Performed By: #### C MP #### [facility] [address] [place] [address] Dr. Spring Nash NEUT # 10.1 103/ul Critically high 1.4-6.5 [facility] Comment on above: Performed By: #### C MP #### [facility] [address] [place] [address] Dr. Spring Nash Neutrophils/100 WBC (Bld) 81.4 % Critically high 43.0-75.0 [facility] Comment on above: Performed By: #### C MP #### [facility] [address] [address] [address] Spring Nash Platelet mean volume (Bld) [Entitic vol] 12.5 fL Normal 9.5-13.5 [facility] Comment on above: Performed By: #### C MP #### [facility] [address] [address] [address] Spring Nash PLT 212 103/ul Normal 150-450 [facility] Comment on above: Performed By: #### C MP #### [facility] [address] [address] [address] Spring Nash RBC 3.77 106/ul Critically low 4.70-6.10 [facility] Comment on above: Performed By: #### C MP #### [facility] [address] [address] [address] Spring Nash WBC 12.4 103/ul Critically high 4.0-11.0 [facility] Comment on above: Performed By: #### C MP #### [facility] [address] [address] [address] Spring Nash CULTURE BLOODon 10-02-2022 Microscopic examination of blood, culture Culture Observations: NO GROWTH AT 5 DAYS. Normal [facility] Comment on above: Performed By: #### P OCGLUC #### [facility] [address] [place] [address] Dr. Spring Nash Microscopic examination of blood, culture Culture Observations: NO GROWTH AT 5 DAYS. Normal [facility] Comment on above: Performed By: #### P OCGLUC #### [facility] [address] [place] [address] Dr. Spring Nash Covid-19 PCR ([facility])on 09-14 SARS-CoV-2 (COVID-19) RNA HONEY+probe Ql (Unsp spec) Not detected Normal NOT DETECTED [facility] Comment on above: Result Comment: When [...] for this test is supported by the [place] of [employer] and Human Service's declaration that [...] By: #### C MP, HSTROPN, BNP #### [facility] [address] [place] [address] Dr. Spring Nash INFLUENZA A AND B AGon 10-02 INFLUENZA A AG Negative Normal NEGATIVE SEE COMMENT [facility] Comment on above: Performed By: #### C MP, HSTROPN, BNP #### [facility] [address] [place] [address] Dr. Spring Nash INFLUENZA B AG Negative Normal NEGATIVE SEE COMMENT [facility] Comment on above: Performed By: #### C MP, HSTROPN, BNP #### [facility] [address] [place] [address] Dr. Spring Nash INTERNAL CONTROLS Within Normal Limits Normal Wi thin Normal Limits [facility] Comment on above: Performed By: #### C MP, HSTROPN, BNP #### [facility] [address] [place] [address] Dr. Spring Nash LACTATE/LACTIC ACIDon 2021 Lactate [Moles/Vol] 1.5 mmol/L Normal 0.4-1.9 [facility] Comment on above: Performed By: #### C MP, HSTROPN, BNP #### [facility] [address] [place] [address] Dr. Spring Nash PROF 14(COMP METB)on 10-02- 022 Albumin [Mass/Vol] 2.7 g/dL Critically low 3.4-5.0 [facility] Comment on above: Performed By: #### P OCGLUC #### [facility] [address] [place] [address] Dr. Spring Nash Albumin/Globulin [Mass ratio] 0.7 {ratio} Normal [facility] Comment on above: Performed By: #### P OCGLUC #### [facility] [address] [address] [address] Spring Nash ALP [Catalytic activity/Vol] 169 U/L Critically high 46-116 [facility] Comment on above: Performed By: #### P OCGLUC #### [facility] [address] [place] [address] Dr. Spring Nash ALT [Catalytic activity/Vol] 13 U/L Critically low 16-63 [facility] Comment on above: Performed By: #### P OCGLUC #### [facility] [address] [place] [address] Dr. Spring Nash Anion gap [Moles/Vol] 13.7 mmol/L Normal [facility] Comment on above: Performed By: #### P OCGLUC #### [facility] [address] [place] [address] Dr. Spring Nash AST [Catalytic activity/Vol] 24 U/L Normal 15-37 [facility] Comment on above: Performed By: #### P OCGLUC #### [facility] [address] [place] [address] Dr. Spring Nash Bilirubin [Mass/Vol] 0.6 mg/dL Normal 0.2-1.0 [facility] Comment on above: Performed By: #### P OCGLUC #### [facility] [address] [place] [address] Dr. Spring Nash Calcium [Mass/Vol] 8.1 mg/dL Critically low 8.5-10.1 [facility] Comment on above: Performed By: #### P OCGLUC #### [facility] [address] [place] [address] Dr. Spring Nash Chloride [Moles/Vol] 102 mmol/L Normal 98-107 [facility] Comment on above: Performed By: #### P OCGLUC #### [facility] [address] [address] [address] Spring Nash CO2 [Moles/Vol] 25.1 mmol/L Normal 21.0-32.0 [facility] Comment on above: Performed By: #### P OCGLUC #### [facility] [address] [address] [address] Spring Nash Creatinine [Mass/Vol] 1.55 mg/dL Critically high 0.70-1.30 [facility] Comment on above: Performed By: #### P OCGLUC #### [facility] [address] [place] [address] Dr. Spring Nash EGFR-AF SOUTH AFR[place] 58 mL/min/1.73m2 Critically low >=60 [facility] Comment on above: Performed By: #### P OCGLUC #### [facility] [address] [address] [address] Spring Nash EGFR-NON AF S[place]FR[place] 48 mL/min/1.73m2 Critically low >=60 [facility] Comment on above: Performed By: #### P OCGLUC #### [facility] [address] [place] [address] Dr. Spring Nash Globulin (S) [Mass/Vol] 4.1 g/dL Normal [facility] Comment on above: Performed By: #### P OCGLUC #### [facility] [address] [address] [address] Spring Nash Glucose [Mass/Vol] 421 mg/dL Critically high 74-106 [facility] Comment on above: Performed By: #### P OCGLUC #### [facility] [address] [address] [address] Spring Nash Potassium [Moles/Vol] 4.8 mmol/L Normal 3.5-5.1 [facility] Comment on above: Performed By: #### P OCGLUC #### [facility] [address] [address] [address] Spring Nash Protein [Mass/Vol] 6.8 g/dL Normal 6.4-8.2 [facility] Comment on above: Performed By: #### P OCGLUC #### [facility] [address] [address] [address] Spring Nash Sodium [Moles/Vol] 136 mmol/L Normal 136-145 [facility] Comment on above: Performed By: #### P OCGLUC #### [facility] [address] [address] [address] Spring Nash Urea nitrogen [Mass/Vol] 29.0 mg/dL Critically high 7.0-18.0 [facility] Comment on above: Performed By: #### P OCGLUC #### [facility] [address] [place] [address] Dr. Spring Nash Urea nitrogen/Creatinine [Mass ratio] 18.7 mg/mg Normal [facility] Comment on above: Performed By: #### P OCGLUC #### [facility] [address] [place] [address] Dr. Spirng Nash PROTIMEon 10-02-2022 INR Coag (PPP) [Relative time] {INR} Normal [facility] Comment on above: Performed By: #### P OCGLUC #### [facility] [address] [place] [address] Dr. Spring Nash INR GUIDELINES SEE BELOW Normal [facility] Comment on above: Result Comment: SHAWN RED INR: 2.0 - 3.0 CONDITIONS NOT LISTED BELOW 2.5 - 3.5 FOR PROSTHETIC HEART VALVE REPLACEMENT 2.5 - 3.5 RECURRENT THROMBOSIS Performed By: #### P OCGLUC #### [facility] [address] [place] [address] Dr. Spring Nash PT Coag (PPP) [Time] 9.8 s Normal 9.0-11.6 [facility] Comment on above: Performed By: #### P OCGLUC #### [facility] [address] [place] [address] Dr. Spring Nash PTTon 10-02-2022 aPTT Coag (Bld) [Time] 25.9 s Normal 22.3-36.2 Th e [facility] Comment on above: Performed By: #### P OCGLUC #### [facility] [address] [place] [address] Dr. Spring Nash TROPONIN, HIGH SENSITIVITYon 10-02-2022 HSTROP 29.9 pg/mL Normal 4.0-76.1 [facility] Comment on above: Result Comment: CUT- OFF POINTS HAVE BEEN ESTABLISHED BASED ON THE FOURTH UNIVERSAL DEFINITIONS OF MYOCARDIAL INFARCTION. THE UPPER REFERENCE LIMIT (URL) OF TROPONIN, DEFINED THE 99TH PERCENTILE OF cTnI DISTRIBUTION IN A REFERENCE POPULATION, HAS BEEN CONFIRMED THE DECISION THRESHOLD FOR [place] DIAGNOSIS. Performed By: #### P OCGLUC #### [facility] [address] [place] [address] Dr. Spring Nash TSHon 10-02-2022 TSH 2.707 uIU/mL Normal 0.358-3.74 0 [facility] Comment on above: Performed By: #### P OCGLUC #### [facility] [address] [place] [address] Dr. Spring Nash CBC AUTO DIFFon 07-31-2022 BASO # 0.0 103/ul Normal 0.0-0.1 [facility] Comment on above: Performed By: #### C MP, HSTROPN, BNP #### [facility] [address] [place] [address] Dr. Spring Nash Basophils/100 WBC (Bld) 0.5 % Normal 0.2-2.0 [facility] Comment on above: Performed By: #### C MP, HSTROPN, BNP #### [facility] [address] [place] [address] Dr. Spring Nash EO # 0.3 103/ul Normal 0.0-0.7 [facility] Comment on above: Performed By: #### C MP, HSTROPN, BNP #### [facility] [address] [place] [address] Dr. Spring Nash Eosinophils/100 WBC (Bld) 4.0 % Normal 0.9-7.0 [facility] Comment on above: Performed By: #### C MP, HSTROPN, BNP #### [facility] [address] [place] [address] Dr. Spring Nash Erythrocyte distribution width (RBC) [Ratio] 12.1 % Normal 11.0-15.0 [facility] Comment on above: Performed By: #### C MP, HSTROPN, BNP #### [facility] [address] [place] [address] Dr. Spring Nash Hematocrit (Bld) [Volume fraction] 37.4 % Critically low 42.0-54.0 [facility] Comment on above: Performed By: #### C MP, HSTROPN, BNP #### [facility] [address] [place] [address] Dr. Spring Nash Hemoglobin (Bld) [Mass/Vol] 12.9 g/dL Critically low 14.0-18.0 [facility] Comment on above: Performed By: #### C MP, HSTROPN, BNP #### [facility] [address] [place] [address] Dr. Spring Nash IG # 0.04 10e3/ul Critically high 0.00-0.03 [facility] Comment on above: Performed By: #### C MP, HSTROPN, BNP #### [facility] [address] [place] [address] Dr. Spring Nash IG % 0.5 % Normal 0.0-0.5 [facility] Comment on above: Performed By: #### C MP, HSTROPN, BNP #### [facility] [address] [place] [address] Dr. Spring Nash LYMPH # 1.7 103/ul Normal 1.2-3.8 [facility] Comment on above: Performed By: #### C MP, HSTROPN, BNP #### [facility] [address] [place] [address] Dr. Spring Nash Lymphocytes/100 WBC (Bld) 21.1 % Normal 20.5-60.0 [facility] Comment on above: Performed By: #### C MP, HSTROPN, BNP #### [facility] [address] [place] [address] Dr. Spring Nash MANUAL DIFF REQ NO Normal [facility] Comment on above: Performed By: #### C MP, HSTROPN, BNP #### [facility] [address] [place] [address] Dr. Spring Nash MCH (RBC) [Entitic mass] 31.0 pg Normal 25.9-34.0 [facility] Comment on above: Performed By: #### C MP, HSTROPN, BNP #### [facility] [address] [place] [address] Dr. Spring Nash MCHC (RBC) [Mass/Vol] 34.5 g/dL Normal 29.9-35.2 [facility] Comment on above: Performed By: #### C MP, HSTROPN, BNP #### [facility] [address] [place] [address] Dr. Spring Nash MCV (RBC) [Entitic vol] 89.9 fL Normal 80.0-94.0 [facility] Comment on above: Performed By: #### C MP, HSTROPN, BNP #### [facility] [address] [place] [address] Dr. Spring Nash MONO # 0.6 103/ul Normal 0.3-0.8 [facility] Comment on above: Performed By: #### C MP, HSTROPN, BNP #### [facility] [address] [place] [address] Dr. Spring Nash Monocytes/100 WBC (Bld) 7.9 % Normal 1.7-12.0 [facility] Comment on above: Performed By: #### C MP, HSTROPN, BNP #### [facility] [address] [place] [address] Dr. Spring Nash NEUT # 5.2 103/ul Normal 1.4-6.5 [facility] Comment on above: Performed By: #### C MP, HSTROPN, BNP #### [facility] [address] [place] [address] Dr. Spring Nash Neutrophils/100 WBC (Bld) 66.0 % Normal 43.0-75.0 [facility] Comment on above: Performed By: #### C MEHREEN HSTROPN, BNP #### [facility] [address] [place] [address] Dr. Spring Nash Platelet mean volume (Bld) [Entitic vol] 11.5 fL Normal 9.5-13.5 [facility] Comment on above: Performed By: #### C MEHREEN HSTROPN, BNP #### [facility] [address] [place] [address] Dr. Spring Nash PLT 220 103/ul Normal 150-450 [facility] Comment on above: Performed By: #### C MEHREEN HSTROPN, BNP #### [facility] [address] [place] [address] Dr. Spring Nash RBC 4.16 106/ul Critically low 4.70-6.10 [facility] Comment on above: Performed By: #### C MEHREEN HSTROPN, BNP #### [facility] [address] [place] [address] Dr. Spring Nash WBC 7.8 103/ul Normal 4.0-11.0 [facility] Comment on above: Performed By: #### C MEHREEN HSTROPN, BNP #### [facility] [address] [place] [address] STROKE HEAD WOon [...] LISA DURAN Date: 2022-07-31 21:18 Normal [facility] Covid-19 PCR ([facility])on 07-14 SARS-CoV-2 (COVID-19) RNA HONEY+probe Ql (Unsp spec) Not detected Normal NOT DETECTED [facility] Comment on above: Result Comment: When [...] for this test is supported by the [place] [employer] Service's declaration that [...] By: #### C MP, HSTROPN, BNP #### [facility] [address] [place] [address] Dr. Spring Nash PROF 14(COMP METB)on 022 Albumin [Mass/Vol] 3.1 g/dL Critically low 3.4-5.0 Th e [facility] Comment on above: Performed By: #### P OCGLUC #### [facility] [address] [place] [address] Dr. Spring Nash Albumin/Globulin [Mass ratio] 0.9 {ratio} Normal [facility] Comment on above: Performed By: #### P OCGLUC #### [facility] [address] [place] [address] Dr. Spring Nash ALP [Catalytic activity/Vol] 124 U/L Critically high 46-116 [facility] Comment on above: Performed By: #### P OCGLUC #### [facility] [address] [address] [address] Spring Nash ALT [Catalytic activity/Vol] 18 U/L Normal 16-63 [facility] Comment on above: Performed By: #### P OCGLUC #### [facility] [address] [address] [address] Spring Nash Anion gap [Moles/Vol] 9.1 mmol/L Normal [facility] Comment on above: Performed By: #### P OCGLUC #### [facility] [address] [address] [address] Spring Nash AST [Catalytic activity/Vol] 11 U/L Critically low 15-37 [facility] Comment on above: Performed By: #### P OCGLUC #### [facility] [address] [address] [address] Spring Nash Bilirubin [Mass/Vol] 0.3 mg/dL Normal 0.2-1.0 [facility] Comment on above: Performed By: #### P OCGLUC #### [facility] [address] [address] [address] Spring Nash Calcium [Mass/Vol] 8.9 mg/dL Normal 8.5-10.1 [facility] Comment on above: Performed By: #### P OCGLUC #### [facility] [address] [address] [address] Spring Nash Chloride [Moles/Vol] 102 mmol/L Normal 98-107 [facility] Comment on above: Performed By: #### P OCGLUC #### [facility] [address] [address] [address] Spring Nash CO2 [Moles/Vol] 31.1 mmol/L Normal 21.0-32.0 [facility] Comment on above: Performed By: #### P OCGLUC #### [facility] [address] [address] [address] Spring Nash Creatinine [Mass/Vol] 1.58 mg/dL Critically high 0.70-1.30 [facility] Comment on above: Performed By: #### P OCGLUC #### [facility] [address] [address] [address] Spring Nash EGFR-AF S[place] 56 mL/min/1.73m2 Critically low >=60 [facility] Comment on above: Performed By: #### P OCGLUC #### [facility] [address] [address] [address] Spring Nash EGFR-NON AF [place] 46 mL/min/1.73m2 Critically low >=60 [facility] Comment on above: Performed By: #### P OCGLUC #### [facility] [address] [address] [address] Spring Nash Globulin (S) [Mass/Vol] 3.4 g/dL Normal [facility] Comment on above: Performed By: #### P OCGLUC #### [facility] [address] [address] [address] Spring Nash Glucose [Mass/Vol] 218 mg/dL Critically high 74-106 [facility] Comment on above: Performed By: #### P OCGLUC #### [facility] [address] [address] [address] Spring Nash Potassium [Moles/Vol] 4.2 mmol/L Normal 3.5-5.1 [facility] Comment on above: Performed By: #### P OCGLUC #### [facility] [address] [address] [address] Spring Nash Protein [Mass/Vol] 6.5 g/dL Normal 6.4-8.2 [facility] Comment on above: Performed By: #### P OCGLUC #### [facility] [address] [address] [address] Spring Nash Sodium [Moles/Vol] 138 mmol/L Normal 136-145 [facility] Comment on above: Performed By: #### P OCGLUC #### [facility] [address] [address] [address] Spring Nash Urea nitrogen [Mass/Vol] 22.0 mg/dL Critically high 7.0-18.0 [facility] Comment on above: Performed By: #### P OCGLUC #### [facility] [address] [address] [address] Spring Nash Urea nitrogen/Creatinine [Mass ratio] 13.9 mg/mg Normal [facility] Comment on above: Performed By: #### P OCGLUC #### [facility] [address] [address] [address] Spring Nash PROTIMEon 07-31-2022 INR Coag (PPP) [Relative time] {INR} Normal [facility] Comment on above: Performed By: #### C MP #### [facility] [address] [place] [address] Dr. Spring Nash INR GUIDELINES SEE BELOW Normal [facility] Comment on above: Result Comment: SHAWN RED INR: 2.0 - 3.0 CONDITIONS NOT LISTED BELOW 2.5 - 3.5 FOR PROSTHETIC HEART VALVE REPLACEMENT 2.5 - 3.5 RECURRENT THROMBOSIS Performed By: #### C MP #### [facility] [address] [place] [address] Dr. Spring Nash PT Coag (PPP) [Time] 9.7 s Normal 9.0-11.6 [facility] Comment on above: Performed By: #### C MP #### [facility] [address] [place] [address] Dr. Spring Nash PTTon 07-31-2022 aPTT Coag (Bld) [Time] 23.0 s Normal 22.3-36.2 [facility] Comment on above: Performed By: #### C MP #### [facility] [address] [place] [address] Dr. Spring Nash TROPONIN, HIGH SENSITIVITYon 07-31-2022 HSTROP 36.6 pg/mL Normal 4.0-76.1 [facility] Comment on above: Result Comment: CUT- OFF POINTS HAVE BEEN ESTABLISHED BASED ON THE FOURTH UNIVERSAL DEFINITIONS OF MYOCARDIAL INFARCTION. THE UPPER REFERENCE LIMIT (URL) OF TROPONIN, DEFINED THE 99TH PERCENTILE OF cTnI DISTRIBUTION IN A REFERENCE POPULATION, HAS BEEN CONFIRMED THE DECISION THRESHOLD FOR [place] DIAGNOSIS. Performed By: #### P OCGLUC #### [facility] [address] [address] [address] Spring Nash TSHon 07-31-2022 TSH 2.334 uIU/mL Normal 0.358-3.74 0 [facility] Comment on above: Performed By: #### P OCGLUC #### [facility] [address] [address] [address] Spring Nash XR CHEST 1 Von [...] by: CLIVE HOLLAND Date: 2022-07-31 20:54 Normal [facility] A1C HEMOGLOBINon 05-16-2022 HbA1c (Bld) [Mass fraction] 8.6 % [employer] Other Glucose - FINGER STICKon Glucose [Mass/Vol] 109 mg/dL [employer] Other HbA1c (Bld) [Mass fraction]o n 05-16-2022 A1C HEMOGLOBIN [facility] [employer] Other Basophils Auto (Bld) [#/Vol] Ordered By: Suzan Bennett on 04-21-2022 Basophils (Bld) [#/Vol] 0.1 10*3/uL 0.0-0.2 [facility] Basophils/100 WBC Auto (Bld) Ordered By: Suzan Bennett on 04-21-2022 Basophils/100 WBC (Bld) 0.6 % [facility] Blood hemoglobin measurement (mass/volume)Ordered By: Suzan Bennett on 04-21-2022 Hemoglobin (Bld) [Mass/Vol] 11.7 g/dL 13.0-17.0 [facility] Blood leukocytes automated c ount (number/volume)Ordered By: Suzan Bennett on 04-21-2022 WBC (Bld) [#/Vol] 9.0 10*3/uL 4.5-11.0 [facility] Creatinine and Glomerular fi ltration rate.predicted panel (S/P/Bld)Ordered By: Suzan Bennett on 04-21-2022 Creatinine [Mass/Vol] 1.75 mg/dL 0.64-1.27 [facility] Eosinophils Auto (Bld) [#/Vo l]Ordered By: Suzan Bennett on 04-21-2022 Eosinophils (Bld) [#/Vol] 0.3 10*3/uL 0.0-0.45 [facility] Eosinophils/100 WBC Auto (Bl d)Ordered By: Suzan Bennett on 04-21-2022 Eosinophils/100 WBC (Bld) 3.0 % [facility] Erythrocyte distribution wid th Auto (RBC) [Ratio]Ordered By: Suzan Bennett on 04-21-2022 Erythrocyte distribution width (RBC) [Ratio] 13.2 % 12.0-14.8 [facility] Estimated glomerular filtrat ion rate (GFR) non- AmericanOrdered By: Suzan Bennett on 04-21-2022 GFR/1.73 sq M.predicted among non-blacks MDRD (S/P/Bld) [Vol rate/Area] 41 mL/Min [facility] Hematocrit Auto (Bld) [Volum e fraction]Ordered By: Suzan Bennett on 04-21-2022 Hematocrit (Bld) [Volume fraction] 34.0 % 38.8-50.0 [facility] Laboratory - Chemistry and C hemistry - challengeOrdered By: Sinan Holly on 04-21-2022 Natriuretic peptide B (Bld) [Mass/Vol] 51.0 pg/mL 5-100 [facility] - Hematology and Cell countsOrdered By: Suzan Bennett on 04-21-2022 Nucleated RBC/100 WBC (Bld) [Ratio] 0.0 % 0-0.5 [facility] Lymphocytes Auto (Bld) [#/Vo l]Ordered By: Suzan Bennett on 04-21-2022 Lymphocytes (Bld) [#/Vol] 1.6 10*3/uL 1.00-4.8 [facility] Lymphocytes/100 WBC Auto (Bl d)Ordered By: Suzan Bennett on 04-21-2022 Lymphocytes/100 WBC (Bld) 17.4 % [facility] MCH Auto (RBC) [Entitic mass ]Ordered By: Suzan Bennett on 04-21-2022 MCH (RBC) [Entitic mass] 31.2 pg 27.5-35.2 [facility] MCHC Auto (RBC) [Mass/Vol]Or dered By: Suzan Bennett on 04-21-2022 MCHC (RBC) [Mass/Vol] 34.3 g/dL 32.5-35.6 [facility] MCV Auto (RBC) [Entitic vol] Ordered By: Suzan Bennett on 04-21-2022 MCV (RBC) [Entitic vol] 90.8 fL 83.5-101 [facility] Monocytes Auto (Bld) [#/Vol] Ordered By: Suzan Bennett on 04-21-2022 Monocytes (Bld) [#/Vol] 0.6 10*3/uL 0.0-0.8 [facility] Monocytes/100 WBC Auto (Bld) Ordered By: Suzan Bennett on 04-21-2022 Monocytes/100 WBC (Bld) 6.9 % [facility] Neutrophils Auto (Bld) [#/Vo l]Ordered By: Suzan Bennett on 04-21-2022 Neutrophils (Bld) [#/Vol] 6.5 10*3/uL 1.8-7.7 [facility] Neutrophils/100 WBC Auto (Bl d)Ordered By: Suzan Bennett on 04-21-2022 Neutrophils/100 WBC (Bld) 72.1 % [facility] No Panel InformationOrdered By: Suzan Bnenett on 04-21-2022 Estimated GFR () 50 mL/Min [facility] Comment on above: GFR estimated refere nce range: According to KDOQI guidelines, <60 ml/min/1.73m2 is sufficient to diagnose a patient with chronic kidney disease. Pharmacy Creatinine Clearance (Chem 57.15 [facility] Platelet mean volume Auto (B ld) [Entitic vol]Ordered By: Suzan Bennett on 04-21-2022 Platelet mean volume (Bld) [Entitic vol] 9.9 fL 6.6-10.1 [facility] Platelets Auto (Bld) [#/Vol] Ordered By: Suzan Bennett on 04-21-2022 Platelets (Bld) [#/Vol] 202 10*3/uL 150-450 [facility] RBC Auto (Bld) [#/Vol]Ordere d By: Suzan Bennett on 04-21-2022 RBC (Bld) [#/Vol] 3.75 10*6/uL 3.90-5.60 [facility] Serum or plasma calcium regi urement (mass/volume)Ordered By: Suzan Bennett on 04-21-2022 Calcium [Mass/Vol] 9.0 mg/dL 8.2-10.2 [facility] Serum or plasma chloride taryn surement (moles/volume)Ordered By: Suzan Bennett on 04-21-2022 Chloride [Moles/Vol] 99 mmol/L 95-114 [facility] Serum or plasma glucose regi urement (mass/volume)Ordered By: Suzan Bennett on 04-21-2022 Glucose [Mass/Vol] 215 mg/dL 70-100 [facility] Comment on above: ADA recommended refe rence range Random Glucose Reference Range is dependent on time and content of last meal. Glucose of more than 200 mg/dL in a nonstressed, ambulatory subject supports the diagnosis of Diabetes Mellitus. Serum or plasma potassium me asurement (moles/volume)Ordered By: Suzan Bennett on 04-21-2022 Potassium [Moles/Vol] 4.5 mmol/L 3.5-5.1 [facility] Serum or plasma sodium measu rement (moles/volume)Ordered By: Suzan Bennett on 04-21-2022 Sodium [Moles/Vol] 138 mmol/L 136-146 [facility] Serum or plasma total carbon dioxide measurement (moles/volume)Ordered By: Suzan Bennett on 04-21-2022 CO2 [Moles/Vol] 28.5 mmol/L 22.0-30.0 [facility] Serum or plasma urea nitroge n measurement (mass/volume)Ordered By: Suzan Bennett on 04-21-2022 Urea nitrogen [Mass/Vol] 42 mg/dL 9-23 [facility] Troponin I.cardiac [Mass/vol ume] in Serum or Plasma by High sensitivity methodOrdered By: Sinan Holly on 04-21-2022 Troponin I.cardiac High sensitivity method [Mass/Vol] 18 pg/mL 0-20 [facility] INTRAVITREAL INJECTION, PHAR MACOLOGIC AGENT [...] and verbal post procedure care education. Notes [id number] [facility] Radiology Study observation (narrative) [facility] OCT, RETINA - OU - BOTH EYES on 03-21-2022 [facility] Radiology Study observation (narrative) [facility] Office Visit (Cardiology)on 03-07-2022 Follow-up visit Diagnoses/Problems [...] in adult Healthy Weight Tips; Status:Complete; Done: [id number] Hypertension, Ischemic cardiomyopathy Renew: Bumetanide 1 MG [...] we can help. You may also call [phone] for free resources and assistance.; Status:Complete; Done: [id number] Tobacco Use Screening; Status:Complete; Done: [id number] Unlinked Stop: Potassium Chloride [facility] 20 [...] contact the office if new symptoms arise. [place] in 2 months Encourage healthy lifestyle choices [...] Isosorbide Mon (more content not included)... Normal Peak 10 Tobacco Screening.on 022 Fall risk assessment a) No falls within the last year -[facility] DO Work Phone: Tobacco use status CP a) Yes M [facility] DO Work Phone: Tobacco Screening. Yes -Merged with [facility] 250 DO Work Phone: [...] contact the office if new symptoms arise. [place] in 2 weeks Encourage healthy lifestyle choices [...] DAILY NEEDED. (more content not included)... Normal Peak 10 Tobacco Screening.on 022 Adult depression screening assessment No [facility] 250 DO Work Phone: Adult depression screening assessment Yes [facility] 250 DO Work Phone: Fall risk assessment b) One or more fall s in the last year [facility] [facility] 250 DO Work Phone: Tobacco use status [facility] a) Yes [facility] 250 DO Work Phone: Tobacco Screening. Yes [facility] 250 DO Work Phone: Tobacco Screening. 1-Several days [facility] 250 DO Work Phone: Tobacco Screening. 0-Not at all [facility] 250 DO Work Phone: Tobacco Screening. 2-More than half the days [facility] 250 DO Work Phone: Tobacco Screening. Somewhat Difficult [facility] 250 DO Work Phone: Glucose - [place] Glucose [Mass/Vol] 194 mg/dL Located Within [facility] [employer] Other Tobacco Screening.on 022 Adult depression screening assessment No [facility] 250 DO Work Phone: Adult depression screening assessment Yes [facility] 250 DO Work Phone: [phone] Tobacco use status CP a) Yes [facility] 250 DO Work Phone: [phone] Tobacco Screening. Yes [facility] 250 DO Work Phone: Tobacco Screening. 3-Nearly every day [facility] 250 DO Work Phone: Tobacco Screening. 0-Not at all [facility] 250 DO Work Phone: Tobacco Screening. 2-More than half the days [facility] 250 DO Work Phone: Tobacco Screening. 1-Several days [facility] 250 DO Work Phone: Tobacco Screening. Very Difficult [facility] 250 DO Work Phone: Basophils Auto (Bld) [#/Vol] Ordered By: Jonn Wallace on 01-12-2022 Basophils (Bld) [#/Vol] 0.0 10*3/uL 0.0-0.2 [facility] Basophils/100 WBC Auto (Bld) Ordered By: Jonn Wallace on 01-12-2022 Basophils/100 WBC (Bld) 0.6 % [facility] Blood hemoglobin measurement (mass/volume)Ordered By: Jonn Wallace on 01-12-2022 Hemoglobin (Bld) [Mass/Vol] 11.5 g/dL 13.0-17.0 [facility] Blood leukocytes automated c ount (number/volume)Ordered By: Jonn Wallace on 01-12-2022 WBC (Bld) [#/Vol] 8.4 10*3/uL 4.5-11.0 [facility] Creatinine and Glomerular fi ltration rate.predicted panel (S/P/Bld)Ordered By: Jonn Wallace on 01-12-2022 Creatinine [Mass/Vol] 1.21 mg/dL 0.64-1.27 [facility] Eosinophils Auto (Bld) [#/Vo l]Ordered By: Jonn Wallace on 01-12-2022 Eosinophils (Bld) [#/Vol] 0.5 10*3/uL 0.0-0.45 [facility] Eosinophils/100 WBC Auto (Bl d)Ordered By: Jonn Wallace on 01-12-2022 Eosinophils/100 WBC (Bld) 6.3 % [facility] Erythrocyte distribution wid th Auto (RBC) [Ratio]Ordered By: Jonn Wallace on 01-12-2022 Erythrocyte distribution width (RBC) [Ratio] 14.2 % 12.0-14.8 [facility] Estimated glomerular filtrat ion rate (GFR) non- AmericanOrdered By: Jonn Wallace on 01-12-2022 GFR/1.73 sq M.predicted among non-blacks MDRD (S/P/Bld) [Vol rate/Area] > 60 mL/Min [facility] Glucose Glucometer (BldC) [M ass/Vol]Ordered By: Jonn Wallace on 01-12-2022 Glucose [Mass/Vol] 161 mg/dL [facility] Comment on above: Random Glucose Refer ence Range is dependent on time and content of last meal. Glucose of more than 200 mg/dL in a nonstressed, ambulatory subject supports the diagnosis of Diabetes Mellitus. Hematocrit Auto (Bld) [Volum e fraction]Ordered By: Jonn Wallace on 01-12-2022 Hematocrit (Bld) [Volume fraction] 34.0 % 38.8-50.0 [facility] Laboratory - Chemistry and C hemistry - challengeOrdered By: Jonn Wallace on 01-12-2022 Magnesium [Mass/Vol] 1.9 mg/dL 1.6-2.6 [facility] Laboratory - Hematology and Cell countsOrdered By: Jonn Wallace on 01-12-2022 Nucleated RBC/100 WBC (Bld) [Ratio] 0.1 % 0-0.5 [facility] Lymphocytes Auto (Bld) [#/Vo l]Ordered By: Jonn Wallace on 01-12-2022 Lymphocytes (Bld) [#/Vol] 1.6 10*3/uL 1.00-4.8 [facility] Lymphocytes/100 WBC Auto (Bl d)Ordered By: Jonn Wallace on 01-12-2022 Lymphocytes/100 WBC (Bld) 19.6 % [facility] MCH Auto (RBC) [Entitic mass ]Ordered By: Jonn Wallace on 01-12-2022 MCH (RBC) [Entitic mass] 30.9 pg 27.5-35.2 [facility] MCHC Auto (RBC) [Mass/Vol]Or dered By: Jonn Wallace on 01-12-2022 MCHC (RBC) [Mass/Vol] 33.9 g/dL 32.5-35.6 [facility] MCV Auto (RBC) [Entitic vol] Ordered By: Jonn Wallace on 01-12-2022 MCV (RBC) [Entitic vol] 91.2 fL 83.5-101 [facility] Monocytes Auto (Bld) [#/Vol] Ordered By: Jonn Wallace on 01-12-2022 Monocytes (Bld) [#/Vol] 0.6 10*3/uL 0.0-0.8 [facility] Monocytes/100 WBC Auto (Bld) Ordered By: Jonn Wallace on 01-12-2022 Monocytes/100 WBC (Bld) 7.2 % [facility] Neutrophils Auto (Bld) [#/Vo l]Ordered By: Jonn Wallace on 04-01-2022 Neutrophils (Bld) [#/Vol] 5.5 10*3/uL 1.8-7.7 [facility] Neutrophils/100 WBC Auto (Bl d)Ordered By: Jonn Wallace on 01-12-2022 Neutrophils/100 WBC (Bld) 66.3 % [facility] No Panel InformationOrdered By: Jonn Wallace on 01-12-2022 Estimated GFR () > 60 mL/Min [facility] Comment on above: GFR estimated refere nce range: According to KDOQI guidelines, <60 ml/min/1.73m2 is sufficient to diagnose a patient with chronic kidney disease. Pharmacy Creatinine Clearance (Chem 82.85 [facility] Platelet mean volume Auto (B ld) [Entitic vol]Ordered By: Jonn Wallace on 01-12-2022 Platelet mean volume (Bld) [Entitic vol] 9.8 fL 6.6-10.1 [facility] Platelets Auto (Bld) [#/Vol] Ordered By: Jonn Wallace on 01-12-2022 Platelets (Bld) [#/Vol] 202 10*3/uL 150-450 [facility] RBC Auto (Bld) [#/Vol]Ordere d By: Jonn Wallace on 01-12-2022 RBC (Bld) [#/Vol] 3.73 10*6/uL 3.90-5.60 [facility] Serum or plasma calcium regi urement (mass/volume)Ordered By: Jonn Wallace on 01-12-2022 Calcium [Mass/Vol] 8.8 mg/dL 8.2-10.2 [facility] Serum or plasma chloride taryn surement (moles/volume)Ordered By: Jonn Wallace on 01-12-2022 Chloride [Moles/Vol] 103 mmol/L 95-114 [facility] Serum or plasma glucose regi urement (mass/volume)Ordered By: Jonn Wallace on 01-12-2022 Glucose [Mass/Vol] 69 mg/dL 70-100 [facility] Comment on above: Delta: 314 on -[id number] recommended reference rangeRandom Glucose Reference Range is dependent on time and content of last meal. Glucose of more than 200 mg/dL in a nonstressed, ambulatory subject supports the diagnosis of Diabetes Mellitus. Serum or plasma potassium me asurement (moles/volume)Ordered By: Jonn Wallace on 01-12-2022 Potassium [Moles/Vol] 4.2 mmol/L 3.5-5.1 [facility] Serum or plasma sodium measu rement (moles/volume)Ordered By: Jonn Wallace on 01-12-2022 Sodium [Moles/Vol] 137 mmol/L 136-146 [facility] Serum or plasma total carbon dioxide measurement (moles/volume)Ordered By: Jonn Wallace on 01-12-2022 CO2 [Moles/Vol] 26.2 mmol/L 22.0-30.0 [facility] Serum or plasma urea nitroge n measurement (mass/volume)Ordered By: Jonn Wallace on 01-12-2022 Urea nitrogen [Mass/Vol] 26 mg/dL 9-23 [facility] Activated partial thrombopla stin time (aPTT) in platelet poor plasma by coagulation aOrdered By: Jonn Wallace on 01-11-2022 aPTT Coag (PPP) [Time] 27.5 s 25.1-36.5 [facility] Albumin [Mass/volume] in Ser um or PlasmaOrdered By: Jonn Wallace on 01-11-2022 Albumin [Mass/Vol] 2.7 g/dL 3.2-5.5 [facility] Cholesterol [Mass/volume] in Serum or PlasmaOrdered By: Jonn Wallace on 01-11-2022 Cholesterol [Mass/Vol] 182 mg/dL 140-200 [facility] Comment on above: Chol less than 200 m g/dl low riskChol 201-239 mg/dl borderline riskChol 240 mg/dl and greater high risk Cholesterol in LDL Calc [Mas s/Vol]Ordered By: Jonn Wallace on 01-11-2022 Cholesterol in LDL [Mass/Vol] 114 mg/dL 0-100 [facility] Comment on above: LDL ATP III CLASSIFI CATIONLDL less than 100 mg/dL OptimalLDL 100-129 mg/dL Near or above optimalLDL 130-159 mg/dL Borderline highLDL 160-189 mg/dL HighLDL greater than 189 mg/dL Very high Cholesterol in VLDL Calc [Ma ss/Vol]Ordered By: Jonn Wallace on 01-11-2022 Cholesterol in VLDL [Mass/Vol] 38 mg/dL [facility] Globulin Calc (S) [Mass/Vol] Ordered By: Jonn Wallace on 01-11-2022 Globulin (S) [Mass/Vol] 2.4 g/dL [facility] Laboratory - CoagulationOrde red By: Jonn Wallace on 01-11-2022 PT Coag (PPP) [Time] 10.1 s 9.0-12.9 [facility] No Panel InformationOrdered By: Jonn Wallace on 01-11-2022 Bedside Glucose Comment Glu2: cleaned meter [facility] Platelet poor plasma interna tional normalized ratio (INR) by coagulation assay (relatOrdered By: Jonn Wallace on 01-11-2022 INR Coag (PPP) [Relative time] 0.9 {INR} [facility] Comment on above: INR Therapeutic Rang e [...] on 01-11-2022 Protein [Mass/Vol] 5.1 g/dL 6.1-7.9 [facility] Serum or plasma alanine walton otransferase measurement without P-5'-P (enzymatic activiOrdered By: Jonn Wallace on 01-11-2022 ALT No additional P-5'-P [Catalytic activity/Vol] 10 U/L 10-60 [facility] Serum or plasma albumin/glob ulin mass ratioOrdered By: Jonn Wallace on 01-11-2022 Albumin/Globulin [Mass ratio] 1.1 {ratio} [facility] Serum or plasma alkaline mari sphatase measurement (enzymatic activity/volume)Ordered By: Jonn Wallace on 01-11-2022 ALP [Catalytic activity/Vol] 110 U/L 32-92 [facility] Serum or plasma aspartate am inotransferase measurement (enzymatic activity/volume)Ordered By: Jonn Wallace on 01-11-2022 AST [Catalytic activity/Vol] 10 U/L 10-42 [facility] Serum or plasma high density lipoprotein (HDL) cholesterol measurementOrdered By: Jonn Wallace on 01-11-2022 Cholesterol in HDL [Mass/Vol] 30 mg/dL 29-71 [facility] Comment on above: HDL CHOL ATP-III CLA SSIFICATION Cardiovascular RiskHDL > or equal to 60 mg/dL LOWHDL < 40 mg/dL HIGH Serum or plasma total biliru bin measurement (mass/volume)Ordered By: Jonn Wallace on 01-11-2022 Bilirubin [Mass/Vol] 0.3 mg/dL 0.3-1.2 [facility] Serum or plasma total choles terol/high density lipoprotein (HDL) cholesterol mass ratOrdered By: Jonn Wallace on 01-11-2022 Cholesterol.total/Courtney sterol in HDL [Mass ratio] 6.1 {ratio} [facility] Triglyceride [Mass/volume] i n Serum or PlasmaOrdered By: Jonn Wallace on 01-11-2022 Triglyceride [Mass/Vol] 191 mg/dL 35-149 [facility] Comment on above: TRIG ATP III CLASSIF [...] High sensitivity method [Mass/Vol] 46 pg/mL 0-20 [facility] Basophils Auto (Bld) [#/Vol] Ordered By: Mario Phillips on 01-10-2022 Basophils (Bld) [#/Vol] 0.1 10*3/uL 0.0-0.2 [facility] Basophils/100 WBC Auto (Bld) Ordered By: aMrio Phillips on 01-10-2022 Basophils/100 WBC (Bld) 1.2 % [facility] Beta-hydroxybutyric acid taryn surementOrdered By: Mario Phillips on 01-10-2022 Beta hydroxybutyrate [Mass/Vol] 0.17 mmol/L 0.05-0.27 [facility] Blood hemoglobin measurement (mass/volume)Ordered By: Mario Phillips on 01-10-2022 Hemoglobin (Bld) [Mass/Vol] 12.0 g/dL 13.0-17.0 [facility] Blood leukocytes automated c ount (number/volume)Ordered By: Mario Phillips on 01-10-2022 WBC (Bld) [#/Vol] 9.8 10*3/uL 4.5-11.0 [facility] COVID-19 Positive/NegativeOr dered By: Mario Phillips on 01-10-2022 SARS-CoV-2 (COVID-19) N gene HONEY+probe Ql (Resp) Negative Negative [facility] Comment on above: Testing for SARS-CoV -2 by RT-PCRThis test was developed and its performance characteristics determined by [employer] (BD) and validated at the [facility]. This test has not been FDA cleared [...] (COVID-19) Ag IA.rapid Ql (Resp) Negative Negative [facility] Comment on above: This is a duplicate Estelita SARS Antigen (RACIEL) result to be used for statistical tracking purpose only. Creatinine and Glomerular fi ltration rate.predicted panel (S/P/Bld)Ordered By: Mario Phillips on 01-10-2022 Creatinine [Mass/Vol] 1.30 mg/dL 0.64-1.27 [facility] Eosinophils Auto (Bld) [#/Vo l]Ordered By: Mario Phillips on 01-10-2022 Eosinophils (Bld) [#/Vol] 0.4 10*3/uL 0.0-0.45 [facility] Eosinophils/100 WBC Auto (Bl d)Ordered By: Mario Phillips on 01-10-2022 Eosinophils/100 WBC (Bld) 4.2 % [facility] Erythrocyte distribution wid th Auto (RBC) [Ratio]Ordered By: Mario Phillips on 01-10-2022 Erythrocyte distribution width (RBC) [Ratio] 14.0 % 12.0-14.8 [facility] Estimated glomerular filtrat ion rate (GFR) non- AmericanOrdered By: Mario Phillips on 01-10-2022 GFR/1.73 sq M.predicted among non-blacks MDRD (S/P/Bld) [Vol rate/Area] 58 mL/Min [facility] Glucose mean value [Mass/vol ume] in Blood Estimated from glycated hemoglobinOrdered By: Jonn Wallace on 01-10-2022 Average glucose Estimated from glycated hemoglobin (Bld) [Mass/Vol] 407 mg/dL [facility] Hematocrit Auto (Bld) [Volum e fraction]Ordered By: Mario Phillips on 01-10-2022 Hematocrit (Bld) [Volume fraction] 35.2 % 38.8-50.0 [facility] Hemoglobin A1c percentageOrd ered By: Jonn Wallace on 01-10-2022 HbA1c (Bld) [Mass fraction] 15.8 % 4.3-5.6 [facility] Comment on above: Increased risk for d iabetes: 5.7 - 6.4diabetes: >6.4glycemic control for adults with diabetes: <7.0 Laboratory - Chemistry and C hemistry - challengeOrdered By: Mario Phillips on 01-10-2022 Natriuretic peptide B (Bld) [Mass/Vol] 252.0 pg/mL 5-100 [facility] Laboratory - Hematology and Cell countsOrdered By: Mario Phillips on 01-10-2022 Nucleated RBC/100 WBC (Bld) [Ratio] 0.0 % 0-0.5 [facility] Laboratory - Microbiology an d Antimicrobial susceptibilityOrdered By: Mario Phillips on 01-10-2022 SARS-CoV-2 (COVID-19) RNA HONEY+probe Ql (Unsp spec) N/A [facility] Lymphocytes Auto (Bld) [#/Vo l]Ordered By: Mario Phillips on 01-10-2022 Lymphocytes (Bld) [#/Vol] 1.2 10*3/uL 1.00-4.8 [facility] Lymphocytes/100 WBC Auto (Bl d)Ordered By: Mario Phillips on 01-10-2022 Lymphocytes/100 WBC (Bld) 12.3 % [facility] MCH Auto (RBC) [Entitic mass ]Ordered By: Mario Phillips on 01-10-2022 MCH (RBC) [Entitic mass] 31.1 pg 27.5-35.2 [facility] MCHC Auto (RBC) [Mass/Vol]Or dered By: Mario Phillips on 01-10-2022 MCHC (RBC) [Mass/Vol] 34.1 g/dL 32.5-35.6 [facility] MCV Auto (RBC) [Entitic vol] Ordered By: Mario Phillips on 01-10-2022 MCV (RBC) [Entitic vol] 91.2 fL 83.5-101 [facility] Monocytes Auto (Bld) [#/Vol] Ordered By: Mario Phillips on 01-10-2022 Monocytes (Bld) [#/Vol] 0.5 10*3/uL 0.0-0.8 [facility] Monocytes/100 WBC Auto (Bld) Ordered By: Mario Phillips on 01-10-2022 Monocytes/100 WBC (Bld) 4.8 % [facility] Neutrophils Auto (Bld) [#/Vo l]Ordered By: Mario Phillips on 01-10-2022 Neutrophils (Bld) [#/Vol] 7.6 10*3/uL 1.8-7.7 [facility] Neutrophils/100 WBC Auto (Bl d)Ordered By: Mario Phillips on 01-10-2022 Neutrophils/100 WBC (Bld) 77.5 % [facility] No Panel InformationOrdered By: Mario Phillips on 01-10-2022 SARS Antigen (LFIA) [facility] Estimated GFR () > 60 mL/Min [facility] Comment on above: GFR estimated refere nce range: According to KDOQI guidelines, <60 ml/min/1.73m2 is sufficient to diagnose a patient with chronic kidney disease. Pharmacy Creatinine Clearance (Chem 76.93 [facility] No Panel InformationOrdered By: Jonn Wallace on 01-10-2022 D-Dimer Quantitative (PE/DVT) < 200 ng/mL 0-243 [facility] Comment on above: The reference range for [...] volume (Bld) [Entitic vol] 9.8 fL 6.6-10.1 [facility] Platelets Auto (Bld) [#/Vol] Ordered By: Mario Phillips on 01-10-2022 Platelets (Bld) [#/Vol] 197 10*3/uL 150-450 [facility] RBC Auto (Bld) [#/Vol]Ordere d By: Mario Phillips on 01-10-2022 RBC (Bld) [#/Vol] 3.86 10*6/uL 3.90-5.60 [facility] Serum or plasma calcium regi urement (mass/volume)Ordered By: Mario Phillips on 01-10-2022 Calcium [Mass/Vol] 8.3 mg/dL 8.2-10.2 [facility] Serum or plasma chloride taryn surement (moles/volume)Ordered By: Mario Phillips on 01-10-2022 Chloride [Moles/Vol] 94 mmol/L 95-114 [facility] Serum or plasma glucose regi urement (mass/volume)Ordered By: Mario Phillips on 01-10-2022 Glucose [Mass/Vol] 525 mg/dL 70-100 [facility] Comment on above: Critical valueresult calledat 1528 on 01/10/22ADA recommended reference rangeRandom Glucose Reference Range is dependent on time and content of last meal. Glucose of more than 200 mg/dL in a nonstressed, ambulatory subject supports the diagnosis of Diabetes Mellitus. Serum or plasma potassium me asurement (moles/volume)Ordered By: Mario Phillips on 01-10-2022 Potassium [Moles/Vol] 4.6 mmol/L 3.5-5.1 [facility] Serum or plasma sodium measu rement (moles/volume)Ordered By: Mario Phillips on 01-10-2022 Sodium [Moles/Vol] 126 mmol/L 136-146 [facility] Serum or plasma total carbon dioxide measurement (moles/volume)Ordered By: Mario Phillips on 01-10-2022 CO2 [Moles/Vol] 22.7 mmol/L 22.0-30.0 [facility] Serum or plasma urea nitroge n measurement (mass/volume)Ordered By: Mario Phillips on 01-10-2022 Urea nitrogen [Mass/Vol] 17 mg/dL 9-23 [facility] TSH DL <= 0.005 mIU/L QnOrde red By: Jonn Wallace on 01-10-2022 TSH Qn 4.22 m[IU]/L 0.45-5.33 [facility] Troponin I.cardiac [Mass/vol ume] in Serum or Plasma by High sensitivity methodOrdered By: Mario Phillips on 01-10-2022 Troponin I.cardiac High sensitivity method [Mass/Vol] 43 pg/mL 0-20 [facility] COVID Quick Testingon 2020 Result Positive Located Within [facility] [employer] Other A1C HEMOGLOBINon 07-20-2021 HbA1c (Bld) [Mass fraction] % Located Within [facility] [employer] [employer] Other Glucose - FINGER STICKon Glucose [Mass/Vol] 573 mg/dL Located Within [facility] [place] [employer] Other HbA1c (Bld) [Mass fraction]o n 07-20-2021 A1C HEMOGLOBIN [facility] [place] [employer] Other CBC With Platelet and Differ entialon 12-29-2020 Basophils (Bld) [#/Vol] 0.0 10*3/uL Normal 0.0-0.2 [facility] Comment on above: Performed By: #### C BCWD ####[facility] [facility] [phone] Basophils/100 WBC (Bld) 0.4 % Normal M [facility] Comment on above: Performed By: #### C BCWD ####[facility] [phone] Eosinophils (Bld) [#/Vol] 0.4 10*3/uL Normal 0.0-0.7 [facility] Comment on above: Performed By: #### C BCWD ####[facility] [facility] [phone] Eosinophils/100 WBC (Bld) 3.6 % Normal [facility] Comment on above: Performed By: #### C BCWD ####[facility] [phone] Erythrocyte distribution width (RBC) [Ratio] 16.1 % Critically high 11.5-14.5 [facility] Comment on above: Performed By: #### C BCWD ####[facility] [facility] [phone] Hematocrit (Bld) [Volume fraction] 33.1 % Low 42.0-52.0 [facility] Comment on above: Performed By: #### C BCWD ####[facility] [phone] Hemoglobin (Bld) [Mass/Vol] 10.8 g/dL Low 14.0-18.0 [facility] Comment on above: Performed By: #### C BCWD ####[facility] [facility] [phone] Lymphocytes (Bld) [#/Vol] 1.1 10*3/uL Normal 1.0-4.8 [facility] Comment on above: Performed By: #### C BCWD ####[facility] [phone] Lymphocytes/100 WBC (Bld) 9.4 % Normal [facility] Comment on above: Performed By: #### C BCWD ####[facility] [phone] MCH (RBC) [Entitic mass] 28.6 pg Normal 27.0-31.3 [facility] Comment on above: Performed By: #### C BCWD ####[facility] [phone] MCHC (RBC) [Mass/Vol] 32.8 % Low 33.0-37.0 [facility] Comment on above: Performed By: #### C BCWD ####[facility] [phone] MCV (RBC) [Entitic vol] 87.4 fL Normal 80.0-100.0 M [facility] Comment on above: Performed By: #### C BCWD ####[facility] [place] [phone] Monocytes (Bld) [#/Vol] 0.7 10*3/uL Normal 0.2-0.8 [facility] Comment on above: Performed By: #### C BCWD ####[facility] [facility]ain [place] [phone] Monocytes/100 WBC (Bld) 5.9 % Normal M [facility] Comment on above: Performed By: #### C BCWD ####[facility] [facility] Hospital[facility] [place] [phone] Neutrophils (Bld) [#/Vol] 9.4 10*3/uL Critically high 1.4-6.5 [facility] Comment on above: Performed By: #### C BCWD ####[facility] [facility] [address] [place] [phone] Neutrophils/100 WBC (Bld) 80.7 % Normal [facility] Comment on above: Performed By: #### C BCWD ####[facility] [phone] Platelets (Bld) [#/Vol] 314 10*3/uL Normal 130-400 [facility] Comment on above: Performed By: #### C BCWD ####[facility] [facility] [address] [place] [phone] RBC (Bld) [#/Vol] 3.79 10*6/uL Low 4.70-6.10 [facility] Comment on above: Performed By: #### C BCWD ####[facility] [facility] Hospitalain [place] [phone] WBC (Bld) [#/Vol] 11.7 10*3/uL Critically high 4.8-10.8 [facility] Comment on above: Performed By: #### C BCWD ####[facility] [facility] [place] [phone] CBC auto differentialon 12-12 Basophils (Bld) [#/Vol] 0.0 10*3/uL 0.0 - 0.2 K/uL [facility] Phone: Basophils/100 WBC (Bld) 0.4 % M [email or web address] Phone: Eosinophils (Bld) [#/Vol] 0.4 10*3/uL 0.0 - 0.7 K/uL [facility] Phone: Eosinophils/100 WBC (Bld) 3.6 % [facility] Phone: Erythrocyte distribution width (RBC) [Ratio] 16.1 % High 11.5 - 14.5 % [facility] Phone: Hematocrit (Bld) [Volume fraction] 33.1 % Low 42.0 - 52.0 % [facility] Phone: Hemoglobin (Bld) [Mass/Vol] 10.8 g/dL Low 14.0 - 18.0 g/dL [facility] Phone: Interpretation and review of laboratory results Abnormal [facility] Phone: Lymphocytes (Bld) [#/Vol] 1.1 10*3/uL 1.0 - 4.8 K/uL [facility] Phone: Lymphocytes/100 WBC (Bld) 9.4 % [facility] Phone: MCH (RBC) [Entitic mass] 28.6 pg 27.0 - 31.3 pg [facility] Phone: MCHC (RBC) [Mass/Vol] 32.8 % Low 33.0 - 37.0 % [facility] Phone: MCV (RBC) [Entitic vol] 87.4 fL 80.0 - 100.0 fL [facility] Phone: Monocytes (Bld) [#/Vol] 0.7 10*3/uL 0.2 - 0.8 K/uL [facility] Phone: Monocytes/100 WBC (Bld) 5.9 % M [email or web address] Phone: Neutrophils Absolute 9.4 K/uL High 1.4 - 6 .5 K/uL [email or web address] Phone: Neutrophils/100 WBC (Bld) 80.7 % [email or web address] Phone: Platelets (Bld) [#/Vol] 314 10*3/uL 130 - 400 K/uL [email or web address] Phone: RBC (Bld) [#/Vol] 3.79 10*6/uL Low [email or web address] Phone: WBC (Bld) [#/Vol] 11.7 10*3/uL High 4.8 - 10.8 K/uL [email or web address] Phone: Comprehensive Metabolic Pane l reflex Mgon 12-29-2020 Anion gap [Moles/Vol] 19 mmol/L Critically high 9-15 [facility] Comment on above: Performed By: #### C MPX ####[facility] [phone] Albumin [Mass/Vol] 3.7 g/dL Normal 3.5-4.6 [facility] Comment on above: Performed By: #### C MPX ####[facility] [phone] ALP [Catalytic activity/Vol] 109 U/L Critically high 35-104 [facility] Comment on above: Performed By: #### C MPX ####[facility] [phone] ALT [Catalytic activity/Vol] 13 U/L Normal 0-41 [facility] Comment on above: Performed By: #### C MPX ####[facility] [phone] AST [Catalytic activity/Vol] 15 U/L Normal 0-40 [facility] Comment on above: Performed By: #### C MPX ####[facility] [facility] [phone] Bilirubin [Mass/Vol] mg/dL Normal 0.2-0.7 [facility] Comment on above: Performed By: #### C MPX ####[facility] [facility] [phone] Calcium [Mass/Vol] 9.4 mg/dL Normal 8.5-9.9 [facility] Comment on above: Performed By: #### C MPX ####[facility] [facility] [phone] Chloride [Moles/Vol] 104 mmol/L Normal 95-107 [facility] Comment on above: Performed By: #### C MPX ####[facility] [facility] [phone] CO2 [Moles/Vol] 22 mmol/L Normal 20-31 [facility] Comment on above: Performed By: #### C MPX ####[facility] [facility] [phone] Creatinine [Mass/Vol] 1.50 mg/dL Critically high 0.70-1.20 [facility] Comment on above: Performed By: #### C MPX ####[facility] [facility] [phone] GFR/1.73 sq M predicted among blacks MDRD (S/P/Bld) [Vol rate/Area] mL/min/{1.73_m2} Normal >60 [facility] Comment on above: Result Comment: >60 mL/min/1.73m2 EGFR, calc. for ages 18 and older using the MDRD formula (not corrected for weight), is valid for stable renal function. Performed By: #### C MPX ####[facility] [facility] [phone] GFR/1.73 sq M.predicted MDRD (S/P/Bld) [Vol rate/Area] 49.6 mL/min/{1.73_m2} Low >60 [facility] Comment on above: Result Comment: >60 mL/min/1.73m2 EGFR, calc. for ages 18 and older using the MDRD formula (not corrected for weight), is valid for stable renal function. Performed By: #### C MPX ####[facility] [facility] [phone] Globulin (S) [Mass/Vol] 3.2 g/dL Normal 2.3-3.5 M [facility] Comment on above: Performed By: #### C MPX ####[facility] [phone] Glucose [Mass/Vol] 211 mg/dL Critically high 70-99 M [facility] Comment on above: Performed By: #### C MPX ####[facility] [facility] [phone] Potassium reflex Mg 5.2 mEq/L Critically high 3.4-4.9 [facility] Comment on above: Performed By: #### C MPX ####[facility] [phone] Protein [Mass/Vol] 6.9 g/dL Normal 6.3-8.0 [facility] Comment on above: Performed By: #### C MPX ####[facility] [phone] Sodium [Moles/Vol] 145 mmol/L Critically high 135-144 M [facility] Comment on above: Performed By: #### C MPX ####[facility] [phone] Urea nitrogen [Mass/Vol] 54 mg/dL Critically high 6-20 [facility] Comment on above: Performed By: #### C MPX ####[facility] [facility] [phone] Comprehensive Metabolic Pane l w/ Reflex to MGon 12-29-2020 Albumin [Mass/Vol] 3.7 g/dL 3.5 - 4.6 g/dL [facility] Phone: ALP [Catalytic activity/Vol] 109 U/L High 35 - 104 U/L [facility] [employer] Work Phone: ALT [Catalytic activity/Vol] 13 U/L 0 - 41 U/L [facility] [employer] Work Phone: Anion gap [Moles/Vol] 19 mmol/L High [facility] [employer] Work Phone: AST [Catalytic activity/Vol] 15 U/L 0 - 40 U/L [facility] [employer] Work Phone: Bilirubin Ql (U) <0.2 0.2 - 0.7 mg/dL [facility] [employer] Work Phone: Calcium [Mass/Vol] 9.4 mg/dL 8.5 - 9.9 mg/dL [facility] [employer] Work Phone: Chloride [Moles/Vol] 104 mmol/L [facility] [employer] Work Phone: CO2 [Moles/Vol] 22 mmol/L [facility] [employer] [facility] Work Phone: Creatinine [Mass/Vol] 1.5 mg/dL High 0.70 - 1.20 mg/dL [facility] [employer] Work Phone: GFR >60.0 >60 [employer] Work Phone: Comment on above: >60 mL/min/1.73m2 EG FR, calc. for ages 18 and older using the MDRD formula (not corrected for weight), is valid for stable renal function. GFR Non- 49.6 Low >60 [employer] Work Phone: Comment on above: >60 mL/min/1.73m2 EG FR, calc. for ages 18 and older using the MDRD formula (not corrected for weight), is valid for stable renal function. Globulin (S) [Mass/Vol] 3.2 g/dL 2.3 - 3.5 g/dL [facility] [email or web address] Phone: Glucose [Mass/Vol] 211 mg/dL High 70 - 99 mg/dL [facility] [email or web address] Phone: Interpretation and review of laboratory results Abnormal [facility] [email or web address] Phone: Potassium [Moles/Vol] 5.2 mmol/L High [facility] [employer] Work Phone: Protein [Mass/Vol] 6.9 g/dL 6.3 - 8.0 g/dL [facility] [email or web address] Phone: Sodium [Moles/Vol] 145 mmol/L High [facility] [email or web address] Phone: Urea nitrogen [Mass/Vol] 54 mg/dL High 6 - 20 mg/dL [facility] [email or web address] Phone: POCT Glucoseon 12-29-2020 Glucose [Mass/Vol] 168 mg/dL Critically high 60-115 M [facility] Comment on above: Performed By: #### P GLU ####[facility] [facility] [place] [phone] POC Performed on ACCU-CHEK [facility] Comment on above: Performed By: #### P GLU ####[facility] [facility] [place] [phone] Glucose [Mass/Vol] 168 mg/dL High 60 - 115 mg/dl [facility] [email or web address] Phone: Interpretation and review of laboratory results Abnormal [facility] [email or web address] Phone: Performed on ACCU-CHEK [facility] [email or web address] Phone: Glucose [Mass/Vol] 242 mg/dL Critically high 60-115 M [facility] Comment on above: Performed By: #### P GLU #### [facility] [address] [place] [address] POC Performed on ACCU-CHEK Normal [facility] Comment on above: Performed By: #### P GLU #### [facility] [address] [place] [address] Glucose [Mass/Vol] 242 mg/dL High 60 - 115 mg/dl [email or web address] Phone: Interpretation and review of laboratory results Abnormal [email or web address] Phone: Performed on ACCU-CHEK [email or web address] Phone: APTTon 12-28-2020 aPTT Coag (d) [Time] 28.8 s [facility] [email or web address] Phone: Comment on above: Effective 08/17/2020: Heparin Therapeutic Range: 64.0 98.0 seconds. Basic Metabolic Panelon 12-12 Calcium [Mass/Vol] 9.3 mg/dL Normal 8.5-9.9 [facility] Comment on above: Performed By: #### B MP #### [facility] [address] [place] [address] Chloride [Moles/Vol] 99 mmol/L Normal 95-107 [facility] Comment on above: Performed By: #### B MP #### [facility] [address] [place] [address] CO2 [Moles/Vol] 29 mmol/L Normal 20-31 [facility] Comment on above: Performed By: #### B MP #### [facility] [address] [place] [address] Creatinine [Mass/Vol] 1.59 mg/dL Critically high 0.70-1.20 [facility] Comment on above: Performed By: #### B MP #### [facility] [address] [place] [address] GFR/1.73 sq M predicted among blacks MDRD (S/P/Bld) [Vol rate/Area] 56.2 mL/min/{1.73_m2} Low >60 [facility] Comment on above: Result Comment: >60 mL/min/1.73m2 EGFR, calc. for ages 18 and older using the MDRD formula (not corrected for weight), is valid for stable renal function. Performed By: #### B MP #### [facility] [address] [place] [address] GFR/1.73 sq M.predicted MDRD (S/P/Bld) [Vol rate/Area] 46.4 mL/min/{1.73_m2} Low >60 [facility] Comment on above: Result Comment: >60 mL/min/1.73m2 EGFR, calc. for ages 18 and older using the MDRD formula (not corrected for weight), is valid for stable renal function. Performed By: #### B MP #### [facility] [address] [place] [address] Glucose [Mass/Vol] 73 mg/dL Normal 70-99 [facility] Comment on above: Performed By: #### B MP #### [facility] [address] [place] [address] Potassium [Moles/Vol] 4.8 mmol/L Normal 3.4-4.9 [facility] Comment on above: Performed By: #### B MP #### [facility] [address] [place] [address] Sodium [Moles/Vol] 137 mmol/L Normal 135-144 [facility] Comment on above: Performed By: #### B MP #### [facility] [address] [place] [address] Urea nitrogen [Mass/Vol] 58 mg/dL Critically high 6-20 [facility] Comment on above: Performed By: #### B MP #### [facility] [address] [place] [address] Anion gap [Moles/Vol] 9 mmol/L Normal 9-15 [facility] Comment on above: Performed By: #### B MP #### [facility] [address] [place] [address] Anion gap [Moles/Vol] 9 mmol/L [facility] [employer] Work Phone: Calcium [Mass/Vol] 9.3 mg/dL 8.5 - 9.9 mg/dL [facility] [email or web address] Phone: Chloride [Moles/Vol] 99 mmol/L [facility] [email or web address] Phone: CO2 [Moles/Vol] 29 mmol/L [facility] Work Phone: Creatinine [Mass/Vol] 1.59 mg/dL High 0.70 - 1.20 mg/dL [facility] [email or web address] Phone: GFR 56.2 Low >60 [facility] [email or web address] Phone: Comment on above: >60 mL/min/1.73m2 EG FR, calc. for ages 18 and older using the MDRD formula (not corrected for weight), is valid for stable renal function. GFR Non- 46.4 Low >60 [email or web address] Phone: Comment on above: >60 mL/min/1.73m2 EG FR, calc. for ages 18 and older using the MDRD formula (not corrected for weight), is valid for stable renal function. Glucose [Mass/Vol] 73 mg/dL 70 - 99 mg/dL [facility] [email or web address] Phone: Interpretation and review of laboratory results Abnormal [email or web address] Phone: Potassium [Moles/Vol] 4.8 mmol/L [facility] [email or web address] Phone: Sodium [Moles/Vol] 137 mmol/L [facility] [email or web address] Phone: Urea nitrogen [Mass/Vol] 58 mg/dL High 6 - 20 mg/dL [facility] [email or web address] Phone: CBC Auto Differentialon 12-12 Basophils (Bld) [#/Vol] 0.0 10*3/uL 0.0 - 0.2 K/uL [email or web address] Phone: Basophils/100 WBC (Bld) 0.3 % M [facility] Work Phone: Eosinophils (Bld) [#/Vol] 0.6 10*3/uL 0.0 - 0.7 K/uL [employer] Phone: Eosinophils/100 WBC (Bld) 5.5 % [employer] Phone: Erythrocyte distribution width (RBC) [Ratio] 15.1 % High 11.5 - 14.5 % [facility] Phone: Hematocrit (Bld) [Volume fraction] 34.7 % Low 42.0 - 52.0 % [facility] Phone: Hemoglobin (Bld) [Mass/Vol] 11.5 g/dL Low 14.0 - 18.0 g/dL [facility] Phone: Interpretation and review of laboratory results Abnormal [facility] Phone: Lymphocytes (Bld) [#/Vol] 1.4 10*3/uL 1.0 - 4.8 K/uL [facility] Phone: Lymphocytes/100 WBC (Bld) 13.4 % [facility] Phone: MCH (RBC) [Entitic mass] 28.8 pg 27.0 - 31.3 pg [facility] Phone: MCHC (RBC) [Mass/Vol] 33.0 % 33.0 - 37.0 % [facility] Phone: MCV (RBC) [Entitic vol] 87.0 fL 80.0 - 100.0 fL [facility] Phone: Monocytes (Bld) [#/Vol] 0.8 10*3/uL 0.2 - 0.8 K/uL [facility] Phone: Monocytes/100 WBC (Bld) 7.5 % M [employer] Phone: Neutrophils Absolute 7.5 K/uL High 1.4 - 6 .5 K/uL [facility] Phone: Neutrophils/100 WBC (Bld) 73.3 % [email or web address] Phone: Platelets (Bld) [#/Vol] 306 10*3/uL 130 - 400 K/uL [email or web address] Phone: RBC (Bld) [#/Vol] 3.99 10*6/uL Low [facility] [email or web address] Phone: WBC (Bld) [#/Vol] 10.2 10*3/uL 4.8 - 10.8 K/uL [facility] [email or web address] Phone: CBC With Platelet and Differ entialon 12-28-2020 Basophils (Bld) [#/Vol] 0.0 10*3/uL Normal 0.0-0.2 [facility] Comment on above: Performed By: #### C BCWD #### [facility] [address] [place] [address] Basophils/100 WBC (Bld) 0.3 % Normal [facility] Comment on above: Performed By: #### C BCWD #### [facility] [address] [place] [address] Eosinophils (Bld) [#/Vol] 0.6 10*3/uL Normal 0.0-0.7 [facility] Comment on above: Performed By: #### C BCWD #### [facility] [address] [place] [address] Eosinophils/100 WBC (Bld) 5.5 % Normal [facility] Comment on above: Performed By: #### C BCWD #### [facility] [address] [place] [address] Erythrocyte distribution width (RBC) [Ratio] 15.1 % Critically high 11.5-14.5 [facility] Comment on above: Performed By: #### C BCWD #### [facility] [address] [place] [address] Hematocrit (Bld) [Volume fraction] 34.7 % Low 42.0-52.0 [facility] Comment on above: Performed By: #### C BCWD #### [facility] [address] [place] [address] Hemoglobin (Bld) [Mass/Vol] 11.5 g/dL Low 14.0-18.0 [facility] Comment on above: Performed By: #### C BCWD #### [facility] [address] [place] [address] Lymphocytes (Bld) [#/Vol] 1.4 10*3/uL Normal 1.0-4.8 [facility] Comment on above: Performed By: #### C BCWD #### [facility] [address] [place] [address] Lymphocytes/100 WBC (Bld) 13.4 % Normal [facility] Comment on above: Performed By: #### C BCWD #### [facility] [address] [place] [address] MCH (RBC) [Entitic mass] 28.8 pg Normal 27.0-31.3 [facility] Comment on above: Performed By: #### C BCWD #### [facility] [address] [place] [address] MCHC (RBC) [Mass/Vol] 33.0 % Normal 33.0-37.0 [facility] Comment on above: Performed By: #### C BCWD #### [facility] [address] [place] [address] MCV (RBC) [Entitic vol] 87.0 fL Normal 80.0-100.0 M [facility] Comment on above: Performed By: #### C BCWD #### [facility] [address] [place] [address] Monocytes (Bld) [#/Vol] 0.8 10*3/uL Normal 0.2-0.8 [facility] Comment on above: Performed By: #### C BCWD #### [facility] [address] [place] [address] Monocytes/100 WBC (Bld) 7.5 % Normal M [facility] Comment on above: Performed By: #### C BCWD #### [facility] [address] [place] [address] Neutrophils (Bld) [#/Vol] 7.5 10*3/uL Critically high 1.4-6.5 [facility] Comment on above: Performed By: #### C BCWD #### [facility] [address] [place] [address] Neutrophils/100 WBC (Bld) 73.3 % Normal [facility] Comment on above: Performed By: #### C BCWD #### [facility] [address] [place] [address] Platelets (Bld) [#/Vol] 306 10*3/uL Normal 130-400 [facility] Comment on above: Performed By: #### C BCWD #### [facility] [address] [place] [address] RBC (Bld) [#/Vol] 3.99 10*6/uL Low 4.70-6.10 [facility] Comment on above: Performed By: #### C BCWD #### [facility] [address] [place] [address] WBC (Bld) [#/Vol] 10.2 10*3/uL Normal 4.8-10.8 [facility] Comment on above: Performed By: #### C BCWD #### [facility] [address] [place] [address] COVID-19on 12-28-2020 COVID-19, NAAT Not Detected Normal Not Detect [facility] Comment on above: Result Comment: Rapi d [...] authorized laboratories. Fact sheet for Healthcare Providers: https://www.fda.gov/media/344651/download Fact sheet for Patients: https://www.fda.gov/media/046021/download METHODOLOGY: Isothermal Nucleic Acid Amplification Performed By: #### C OVRG #### [facility] [address] [place] [address] COVID-19, Rapidon 12-28-2020 SARS-CoV-2, NAAT Not Detected Not Detected [email or web address] Phone: Comment on above: Rapid NAAT: Negative [...] authorized laboratories. Fact sheet for Healthcare Providers: https://www.fda.gov/media/952836/download Fact sheet for Patients: https://www.fda.gov/media/467573/download METHODOLOGY: Isothermal Nucleic Acid Amplification POCT Glucoseon 12-28-2020 Glucose [Mass/Vol] 86 mg/dL Normal 60-115 [facility] Comment on above: Performed By: #### P GLU #### [facility] [address] [place] [address] POC Performed on ACCU-CHEK Normal [facility] Comment on above: Performed By: #### P GLU #### [facility] [address] [place] [address] Glucose [Mass/Vol] 86 mg/dL 60 - 115 mg/dl [facility] [email or web address] Phone: Performed on ACCU-CHEK [email or web address] Phone: Partial Thromboplastin Timeo n 12-28-2020 aPTT Coag (Bld) [Time] 28.8 s Normal 24.4-36.8 [facility] Comment on above: Result Comment: Effe ctive 08/17/2020: Heparin Therapeutic Range: 64.0 ? 98.0 seconds. Performed By: #### P TT #### [facility] [address] [place] [address] Prothrombin Timeon 1 INR Coag (PPP) [Relative time] 1.0 {INR} Normal [facility] Comment on above: Performed By: #### P T #### [facility] [address] [place] [address] PT Coag (PPP) [Time] 13.7 s Normal 12.3-14.9 [facility] Comment on above: Performed By: #### P T #### [facility] [address] [place] [address] Protime-INRon 12-28-2020 INR Coag (PPP) [Relative time] 1.0 {INR} [facility] Work Phone: PT Coag (PPP) [Time] 13.7 s [facility] [email or web address] Phone: TYPE AND SCREENon 12-28-2020 ABO/Rh Positive [facility] [email or web address] Phone: Type and Screen Capture 3 sc rn cellon 12-28-2020 Type and Screen Capture 3 scrn cell PATIENT: KEI Forde LOC: [facility] BILL# : [id number] : 1970 SEX: M ORDERED BY: URIAH BONILLA ORDERED : 12/28/2020 12:26 COLLECTED: 12/28/2020 12:30 ORDER : [id number] RECEIVED : 12/28/2020 13:07 ------ TEST NAME RESULT UNITS RANGES ABN FL ST ABORH Capture O POS F Antibody 3 Cell Scrn Captu NEG F ----- Normal [facility] Comment on above: Performed By: #### T S3C #### [facility] [address] [place] [address] CTA ABDOMINAL AORTA W BILAT RUNOFF W WO CONTRASTon 12-21-2020 Three-vessel distal runoff, right lower extremity. Two-vessel distal runoff, left lower extremity, the anterior tibial and posterior tibial arteries. Bilateral lower extremity edema. Constipation All CT scans at this facility use dose modulation, iterative reconstruction, and/or weight based dosing when appropriate to reduce radiation dose to as low as reasonably achievable. [facility] [employer] Work Phone: CTA abdomen, pelvis, bilateral lower [...] to the level of the distal tibia. [employer] Work Phone: Chip, [facility] Incoming Radiant Results From [employer] - 12/21/2020 9:36 AM EST CTA abdomen, [...] dose to as low as reasonably achievable. [employer] Phone: POCT Venouson 12-21-2020 Creatinine [Mass/Vol] 0.7 mg/dL Low 0.9 - 1.3 mg/dL [employer] Phone: GFR >60 >60 [employer] Phone: Comment on above: >60 mL/min/1.73m2 EG FR, calc. for ages 18 and older using the MDRD formula (not corrected for weight), is valid for stable renal function. GFR Non- >60 >60 [employer] Phone: Comment on above: >60 mL/min/1.73m2 EG FR, calc. for ages 18 and older using the MDRD formula (not corrected for weight), is valid for stable renal function. Interpretation and review of laboratory results Abnormal [employer] Phone: Performed on SEE BELOW [employer] Phone: Comment on above: Performed on POC Sample Type KELVIN [employer] Phone: CTA ABDOMINAL AORTA W BILAT RUNOFF [...] Jaguar Cross MD 12/21/20 Final result Normal [facility] POCT Venouson 12-20-2020 Creatinine [Mass/Vol] 0.7 mg/dL Low 0.9-1.3 [facility] Comment on above: Performed By: #### P KELVIN #### [facility] [address] [facility] [address] GFR/1.73 sq M predicted among blacks MDRD (S/P/Bld) [Vol rate/Area] mL/min/{1.73_m2} Normal >60 [facility] Comment on above: Result Comment: >60 mL/min/1.73m2 EGFR, calc. for ages 18 and older using the MDRD formula (not corrected for weight), is valid for stable renal function. Performed By: #### P KELVIN #### [facility] [address] [place] [address] GFR/1.73 sq M.predicted MDRD (S/P/Bld) [Vol rate/Area] mL/min/{1.73_m2} Normal >60 [facility] Comment on above: Result Comment: >60 mL/min/1.73m2 EGFR, calc. for ages 18 and older using the MDRD formula (not corrected for weight), is valid for stable renal function. Performed By: #### P KELVIN #### [facility] [address] [place] [address] POC Performed on SEE BELOW [facility] Comment on above: Result Comment: Perf ormed on POC Performed By: #### P KELVIN #### [facility] [address] [place] [address] POC Sample Type KELVIN Normal [facility] Comment on above: Performed By: #### P KELVIN #### [facility] [address] [place] [address] Coding Summary.on 01-14-2019 Coding Summary. 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 Z79.899 Other termite inspector (current) drug therapy Z88.8 Allergy status to other drugs, medicaments and biological substances status PYMT PROC APC STAT DESCRIPTION DOCTOR NAME DATE 69943 0257 T Adjacent tissue transfer Fadi Tenorio DO 01/08/2019 or rearrangement, scalp, arms and/or legs; defect 10 sq cm or less 32307 Anesthesia for Luis Sellers Jr., DO 01/08/2019 [...] Rita Mckeon Date Saved: 01/14/2019 12:54 pm [facility] Inpatient Patient Summaryon 01-08-2019 Inpatient Patient Summary [facility] Clinical Discharge Instructions PERSON INFORMATION Name: CHANDLER MINOR [employer] Admitting Physician: Fatoumata Tirado MD Attending Physician: Fatoumata Tirado MD PCP: Fadi Tenorio DO Discharge Diagnosis: Scalp lesion Comment: PATIENT EDUCATION INFORMATION Instructions: Medication Leaflets: Follow up: With: Address: When: Fatoumata Tirado [address] [place] [address] 3, [address] [place] [id number] [facility] () In 8 days 01/16/2019 MEDICATION LIST Comment: [facility] Main OR Intraoperative Recor don 01-08-2019 Main OR Intraoperative Record IntraOp Document Type FT Summary Primary Physician: Fatoumata Tirado MD Finalized Date/Time: 01/08/19 14:23:55 Pt. Name: CHANDLER MINOR Yifan/Sex: 1970 Male Med Rec #: [id number] Physician: Fatoumata Tirado MD Financial #: [id number] Pt. Type: A Room/Bed: Admit/Disch: 01/08/19 07:12:00 [...] Role Performed Anesthesiologist of Surgeon - Primary Senior Hris Analyst - Primary Record Time In 01/08/19 09:34:00 01/08/19 09:44:00 01/08/19 09:34:00 Time Out 01/08/19 10:32:00 01/08/19 10:32:00 01/08/19 10:32:00 Procedure CYST LESION CYST LESION CYST LESION REMOVAL(Left) REMOVAL(Left) REMOVAL(Left) Comments Last Modified By: Demetrius RN, Danielle Romo RN, Danielle Pacheco RN 01/08/19 10:31:49 01/08/19 10:31:49 01/08/19 10:31:49 Entry 4 Entry 5 Case Attendee Demetrius MARTÍNEZ, Danielle Miguel CST, Gary Tao Role Performed Senior Hris Analyst - Primary Scrub - Primary Time In [...] Romo RN, Barker Krupp RN, Andrea L, SHANK SANDER, Gary Miguel CST, Gary Tao Outcomes Met? [...] to transfer/transport General Comments: report given to renal dialysis rn. Kassidy merchant rn Dressing/Packing FT Pre-Care Text: [...] safely administered during the perioperative period For [facility] please see scanned medication reconcilliation form for [...] AIR Quantity 1 Aid PLUS LOWER BODY [[id number]][F] Fluid/Charlotte Unit Mistral warming system Setting high/43 Body Site Lower anterior torso Last Modified By: Danielle Romo RN 01/08/19 07:32:52 Case Comments Finalized By: Nunu Asif CST Document Signatures Signed By: Danielle Romo RN 01/08/19 10:35 Nunu Asif CST 01/08/19 14:23 Normal [facility] Main OR PACU I Recordon 12-13 Main OR PACU I Record PACU Phase I Docum ent Type FT Summary Primary Physician: Fatoumata Tirado MD Finalized Date/Time: 01/08/19 11:13:30 Pt. Name: CHANDLER MINOR /Sex: 1970 Male Med Rec #: [id number] Physician: Fatoumata Tirado MD Financial #: [id number] Pt. Type: A Room/Bed: [place] [address] Admit/Disch: 01/08/19 07:12:51 - Institution: Case Times [...] 11:03 Sugey Oden RN 01/08/19 11:13 Normal [facility] Main OR PACU II Recordon Main OR PACU II Record PACU Phase II Doc ument Type FT Summary Primary Physician: Fatoumata Tirado MD Finalized Date/Time: 01/08/19 13:45:23 Pt. Name: KEICHANDLER/Sex: 1970 Male Med Rec #: [id number] Physician: Fatoumata Tirado MD Financial #: [id number] Pt. Type: A Room/Bed: [facility]/ Admit/Disch: 01/08/19 07:12:51 - Institution: [...] 13:43 Ilana Peguero RN 01/08/19 13:45 Normal [facility] Main OR Preoperative Recordo n 01-08-2019 Main OR Preoperative Record PreOp Document Type FT Summary Primary Physician: Fatoumata Tirado MD Finalized Date/Time: 01/08/19 09:51:30 Pt. Name: CHANDLER MINOR/Sex: 1970 Male Med Rec #: [id number] Physician: Fatoumata Tirado MD Financial #: [id number] Pt. Type: A Room/Bed: [place] [address] Admit/Disch: 01/08/19 07:12:51 - Institution: Case Times [...] By: Danielle Romo RN 01/08/19 09:51 Normal [facility] Operative Reporton 201 9 Operative Report Date [...] Fatoumata Tirado Jr., M.D. aek Dictated: 01/08/2019 #[id number] Typed: 01/08/2019 #[id number] cc: Rosi Barragan Jr. M.D. [facility] Comment on above: Result Comment: Elec tronically Signed By: Fatoumata Tirado MD\.br\Date and Time Signed: 01/08/19 14:38 EDT Operative Report Patient: MELVI MINOR Age: 48 years Sex: Male : 1970 Associated Diagnoses: None Author: Fatoumata Tirado MD Postoperative Information Procedure: r/o scalp lesion and advancement flap closure (5cm length) Preoperative Diagnosis: Scalp lesion (JTZ77-TZ L98.9, Working, Medical). Postoperative Diagnosis: Scalp lesion ([id number]-BR L98.9, Discharge, Medical). Performed by: Fatoumata Tirado MD. Findings: scalp cyst with fistulous tract. Specimens Removed: scalp lesion. Estimated Blood Loss: 10 ml. Medications Complications: None. [facility] Comment on above: Result Comment: Elec tronically Signed By: Fatoumata Tirado MD\.br\Date and Time Signed: 01/08/19 10:45 EDT Patient Education - Texton 0 01-08-2019 Patient Education - Text [facility] Progress Note-Physicianon Protein mass conc Patient: MELVI MINOR Age: 48 years Sex: Male : 1970 Associated Diagnoses: None Author: Neheimah Orosco Jr, DO Preoperative Information Time patient [...] list: All Problems Asthma / SNOMED CT 271860843 / Confirmed Carpal tunnel syndrome / SNOMED CT 06986707 / Confirmed bilateral Depression / SNOMED CT 33436871 / Confirmed Diabetes / SNOMED CT 829980214 / Confirmed Acid reflux / SNOMED CT 280224632 / Confirmed Hypertension / SNOMED CT 9375026279 / Confirmed Scalp lesion / SNOMED CT 6060120894 / Confirmed x2 Migraine headache / SNOMED CT 66588384 / Confirmed Parkinson's disease / SNOMED CT 90364084 / Confirmed Sarcoidosis / SNOMED CT 96946097 / Confirmed Seizure / SNOMED CT 963033772 / Confirmed last July was last seizure- in PACU Sleep apnea / SNOMED CT 923503012 / Confirmed uses CPAP Smoker / SNOMED CT 969313044 / Confirmed Added secondary to documentation in [...] results Radiology results ECG interpretation Condition Plan [place] [employer]hesi[employer] (ASA) physical status classification: Class III. Anesthetic Preoperative Plan Anesthesia: General. . Anesthetic plan, risks, benefits, and alternatives discussed with the patient and/or family. Risks discussed: nausea, vomiting, headache, sore throat, dental injury, serious complications. Patient verbalized understanding. Communication: face to face with (patient 5 minutes, Pt educated on the importance of smoking cessation.). Normal [facility] Comment on above: Result Comment: Elec tronically Signed By: Nehemiah Orosco Jr, DO\.alva\Date and Time Signed: 01/08/19 16:48 EDT Coding Summary.on 12-31-2018 Coding Summary. CODING DATE: 019 FINAL [facility] STATUS: Home (Routine DC) PAYOR: Commercial [...] CphT Date Saved: 12/31/2018 01:25 pm Normal [facility] Auto Diffon 12-30-2018 Basophils #/vol (Bld) 0.3 % Normal 0.0-2.0 [facility] Comment on above: Order Comment: Order Added by Discern Expert. Performed By: #### 2 262013, 8243895, [id number] #### [facility] [address] [place] [address] Basophils/Leukocytes Auto Pure number fraction (Bld) 0.0 E9/L Normal 0.0-0.2 [facility] Comment on above: Order Comment: Order Added by Discern Expert. Performed By: #### 2 624618, 1099642, 75581624 #### [facility] [address] [place] [address] Eosinophils/100 WBC (Bld) 3.9 % Normal 0.0-8.0 [facility] Comment on above: Order Comment: Order Added by Asad Expert. Performed By: #### 2 201543, 5300601, [id number] #### [facility] [address] [place] [address] Eosinophils/Leukocytes Auto Pure number fraction (Bld) 0.3 E9/L Normal 0.0-0.5 [facility] Comment on above: Order Comment: Order Added by Asad Expert. Performed By: #### 2 248495, 5647267, 37351326 #### [facility] [address] [place] [address] Lymphocytes/100 WBC (Bld) 22.4 % Normal 14.0-50.0 [facility] Comment on above: Order Comment: Order Added by Asad Expert. Performed By: #### 2 513197, 3150920, [id number] #### [facility] [address] [place] [address] [place] [address] Lymphocytes/Leukocytes Auto Pure number fraction (Bld) 1.9 E9/L Normal 1.0-4.0 [facility] Comment on above: Order Comment: Order Added by Discern Expert. Performed By: #### 2 656709, 3060968, 17720705 #### [facility] [address] [place] [address] Monocytes/100 WBC (Bld) 7.7 % Normal 4.0-14.0 [facility] Comment on above: Order Comment: Order Added by Discern Expert. Performed By: #### 2 348672, 6543776, 53034308 #### [facility] [address] [place] [address] Monocytes/Leukocytes Auto Pure number fraction (Bld) 0.7 E9/L Normal 0.2-1.0 [facility] Comment on above: Order Comment: Order Added by Discern Expert. Performed By: #### 2 408994, 8243704, 78586399 #### [facility] [address] [place] [address] Neutrophils/100 WBC (Bld) 65.7 % Normal 36.0-75.0 [facility] Comment on above: Order Comment: Order Added by Discern Expert. Performed By: #### 2 390237, 3965101, 73536024 #### [facility] [address] [place] [address] Neutrophils/Leukocytes Auto Pure number fraction (Bld) 5.6 E9/L Normal 2.0-7.5 [facility] Comment on above: Order Comment: Order Added by Discern Expert. Performed By: #### 2 427954, 4347381, 91931653 #### [facility] [address] [place] [address] BUNon 12-30-2018 Urea nitrogen mass conc 18 mg/dL Normal 5-21 [facility] Comment on above: Performed By: #### 2 676236, 7240764, 90171578, 4710058, 6629618 #### [facility] [address] [place] [address] CBC w/ Auto Diffon 9 Erythrocyte distribution width Ratio (RBC) 13.1 % Normal 10.9-14.2 [facility] Comment on above: Performed By: #### 2 087161, 3268983, 76726249 #### [facility] [address] [place] [address] Hematocrit Volume Fraction (Bld) 39.6 % Normal 37.7-49.0 [facility] Comment on above: Performed By: #### 2 157323, 8132207, 48636203 #### [facility] [address] [place] [address] Hemoglobin mass conc (Bld) 13.7 g/dL Normal 13.5-17.5 [facility] Comment on above: Performed By: #### 2 867722, 2462505, 40764908 #### [facility] [address] [place] [address] MCH Entitic mass (RBC) 32.5 pg Normal 27.0-34.0 [facility] Comment on above: Performed By: #### 2 110113, 1138619, 50663415 #### [facility] [address] [place] [address] MCHC mass conc (RBC) 34.5 g/dL Normal 33.3-35.7 [facility] Comment on above: Performed By: #### 2 768633, 9092842, 60223625 #### [facility] [address] [place] [address] MCV Entitic volume (RBC) 94.1 fL Normal 80.0-100.0 [facility] Comment on above: Performed By: #### 2 496243, 3466399, 44412306 #### [facility] [address] [place] [address] Platelet mean volume Entitic volume (Bld) 9.1 fL Normal 6.4-10.8 [facility] Comment on above: Performed By: #### 2 865440, 6779153, 43676158 #### [facility] [address] [place] [address] Platelets #/vol (Bld) 229.0 E9/L Normal 150.0- 500. 0 [facility] Comment on above: Performed By: #### 2 504588, 4130730, 41040642 #### [facility] [address] [place] [address] RBC #/vol (Bld) 4.2 E12/L Low 4.3-5.9 [facility] Comment on above: Performed By: #### 2 743957, 4958214, 44207691 #### [facility] [address] [place] [address] WBC corrected for nucl RBC Auto #/vol (Bld) 8.5 E9/L Normal 4.0-11.0 [facility] Comment on above: Performed By: #### 2 357086, 5861025, 36562808 #### [facility] [address] [place] [address] Creatinineon 12-30-2018 Creatinine mass conc 0.8 mg/dL Normal 0.5-1.3 [facility] Comment on above: Performed By: #### 2 734293, 2534419, 86300861, 7912397, 4648507 #### [facility] [address] [place] [address] Glucoseon 12-30-2018 Glucose mass conc 214 mg/dL High 55-199 [facility] Comment on above: Performed By: #### 2 026601, 2930612, 97304870, 9100501, 9527668 #### [facility] [address] [place] [address] Lyteson 12-30-2018 Anion gap molar conc 12 mmol/L Normal 6-16 [facility] Comment on above: Performed By: #### 2 780026, 4355496, 70904799, 8020012, 8295527 #### [facility] [address] [place] [address] Chloride molar conc 103 mmol/L Normal 101-111 [facility] Comment on above: Performed By: #### 2 467381, 2850625, 76644683, 3633793, 0856967 #### [facility] [address] [place] [address] CO2 molar conc 24 mmol/L Normal 21-31 [facility] Comment on above: Performed By: #### 2 797831, 5367609, 73358277, 2828494, 2890983 #### [facility] [address] [place] [address] Potassium molar conc 4.0 mmol/L Normal 3.5-5.3 [facility] Comment on above: Performed By: #### 2 753298, 8041107, 87732181, 9140988, 7033551 #### [facility] [address] [place] [address] Sodium molar conc 135 mmol/L Normal 135-145 [facility] Comment on above: Performed By: #### 2 181442, 2391898, 91208036, 7028742, 8973958 #### [facility] [address] [place] [address] PT & PTTon 12-30-2018 aPTT Coag time (PPP) 30.2 second(s) Normal 25.1-36.5 [facility] Comment on above: Result Comment: Hepa rin therapeutic range (represented by Anti-Factor Xa activity of 0.2 - 0.4 U/mL) corresponds to PTT of 56.6 - 109.0 sec. Performed By: #### 2 457008, 5691786, 47230805 #### [facility] [address] [place] [address] INR Coag RelTime (PPP) 1.0 {INR} [facility] Comment on above: Result Comment: INR results are specifically intended to assess patients stabilized on long-term Anticoagulation therapy suggested INR?s ?Less Intensive Anticoagulation? 2.0 ? 3.0 Conventional Range 3.0 ? 4.5 Performed By: #### 2 011147, 9606918, 76647541 #### [facility] [address] [place] [address] Prothrombin time (PT) Coag time (PPP) 10.6 second(s) Normal 10.2-12.9 [facility] Comment on above: Performed By: #### 2 166091, 5095436, 81203835 #### [facility] [address] [place] [address] XR Chest 2 Viewson 9 XR Chest [...] M.D. Transcribed by: ELDON Technologist: BARBARA Normal [facility] eGFRon 12-30-2018 GFR/1.73 sq M predicted among blacks MDRD vol rate/area (S/P/Bld) mL/min/{1.73_m2} Normal >=59 [facility] Comment on above: Order Comment: Order added by Discern Expert. Result Comment: eGFR is race adjusted. AA=. Performed By: #### 2 060358, 3082743, 40702047, 8228430, 0294493 #### [facility] [address] [place] [address] GFR/1.73 sq M predicted among non-blacks MDRD vol rate/area (S/P/Bld) mL/min/{1.73_m2} Normal >=59 [facility] Comment on above: Order Comment: Order added by Discern Expert. Result Comment: Authorizer del kidney disease could be indicated at eGFR's of less than 60 mL/min/1.73m2. Kidney failure is indicated at less than 15 mL/min/1.73m2. Performed By: #### 2 141379, 0210924, 29129377, 1828509, 9518125 #### [facility] [address] [place] [address] No Panel Information [facility] Vital Signs Date Time Vital Sign Value Performing Clinician Facility 09-17-2023 13:00-0500 Body height 170.18 cm Agus Pedroza Other [employer] Other 09-17-2023 13:00-0500 Diastolic blood pressure 74 mm[Hg] Agus Pedroza Other [employer] Other 09-17-2023 13:00-0500 SaO2% (BldA) [Mass fraction] 98 % Agus Pedroza Other [employer] Other 09-17-2023 13:00-0500 Systolic blood pressure 113 mm[Hg] Agus Pedroza Other [employer] Other 08-03-2023 11:00-0400 Body temperature 98.6 [degF] DO Christopher Jack Work Phone: [facility] 08-03-2023 11:00-0400 Diastolic blood pressure 79 mm[Hg] DO Christopher Jack Work Phone: [facility] 08-03-2023 11:00-0400 Heart rate 79 /min DO Christopher Jack Work Phone: [facility] 08-03-2023 11:00-0400 Respiratory rate 14 /min DO Christopher Jack Work Phone: [facility] 08-03-2023 11:00-0400 SaO2% (BldA) [Mass fraction] 98 % DO Christopher Cotton Work Phone: [facility] 08-03-2023 11:00-0400 Systolic blood pressure 168 mm[Hg] DO Christopher Cotton Work Phone: [facility] 08-03-2023 05:54-0400 Inhaled oxygen flow rate 2 L/min DO Christopher Jack Work Phone: [facility] 08-02-2023 21:19-0400 Body height 173 cm DO Christopher Jack Work Phone: [facility] 08-02-2023 21:19-0400 Body mass index (BMI) [Ratio] 28.7 kg/m2 DO Christopher Cotton Work Phone: [facility] 08-02-2023 21:19-0400 Body weight 86 kg DO Christopher Cotton Work Phone: [facility] 08-02-2023 08:01-0400 Diastolic blood pressure 65 mm[Hg] DO Christopher Jack Work Phone: [facility] 08-02-2023 08:01-0400 Heart rate 69 /min DO Christopher Jack Work Phone: [facility] 08-02-2023 08:01-0400 Respiratory rate 15 /min DO Christopher Jack Work Phone: [facility] 08-02-2023 08:01-0400 SaO2% (BldA) [Mass fraction] 97 % DO Christopher Cotton Work Phone: [facility] 08-02-2023 08:01-0400 Systolic blood pressure 96 mm[Hg] DO Christopher Jack Work Phone: [facility] 08-02-2023 07:44-0400 Body temperature 94.5 [degF] DO Christopher Jack Work Phone: [facility] 08-02-2023 04:42-0400 Inhaled oxygen flow rate 99 L/min DO Christopher Cotton Work Phone: [facility] 08-02-2023 04:15-0400 Body height 172.72 cm DO Christopher Jack Work Phone: [facility] 08-02-2023 04:15-0400 Body mass index (BMI) [Ratio] 28.8 kg/m2 DO Christopher Cotton Work Phone: [facility] 08-02-2023 04:15-0400 Body weight 86 kg DO Christopher Jack Work Phone: [facility] 08-02-2023 04:15-0400 SaO2% (BldA) [Mass fraction] 95.1 % DO Christopher Cotton Work Phone: [facility] 05-21-2023 13:30-0400 Body height 170.18 cm Agus Pedroza Other [employer] Other 05-21-2023 13:30-0400 Diastolic blood pressure 100 mm[Hg] Agus Pedroza Other [employer] Other 05-21-2023 13:30-0400 SaO2% (BldA) [Mass fraction] 98 % Agus Pedroza Other [employer] Other 05-21-2023 13:30-0400 Systolic blood pressure 160 mm[Hg] Agus Pedroza Other [employer] Other 04-18-2023 16:35-0400 Body temperature 98.3 [degF] DO Fadi House Work Phone: [facility] 04-18-2023 16:35-0400 Diastolic blood pressure 86 mm[Hg] DO Fadi House Work Phone: [facility] 04-18-2023 16:35-0400 Heart rate 89 /min DO Fadi House Work Phone: [facility] 04-18-2023 16:35-0400 Respiratory rate 16 /min DO Fadi House Work Phone: [facility] 04-18-2023 16:35-0400 SaO2% (BldA) [Mass fraction] 97 % DO Fadi House Work Phone: [facility] 04-18-2023 16:35-0400 Systolic blood pressure 131 mm[Hg] DO Fadi House Work Phone: [facility] 04-18-2023 06:00-0400 Body weight 104.6 kg DO Fadi House Work Phone: [facility] 04-18-2023 04:00-0400 Inhaled oxygen flow rate 2 L/min DO Fadi House Work Phone: [facility] 04-16-2023 11:15-0400 Body height 167.64 cm DO Fadi House Work Phone: [facility] 05-16-2022 14:30-0400 Body height 170.18 cm Tondra Mapus Other [employer] Other 05-16-2022 14:30-0400 Diastolic blood pressure 108 mm[Hg] Tondra Mapus Other [employer] Other 05-16-2022 14:30-0400 Respiratory rate 18 /min Tondra Mapus Other [employer] Other 05-16-2022 14:30-0400 SaO2% (BldA) [Mass fraction] 98 % Tondra Mapus Other [employer] Other 05-16-2022 14:30-0400 Systolic blood pressure 155 mm[Hg] Tondra Mapus Other [employer] Other 04-22-2022 00:30-0400 Diastolic blood pressure 64 mm[Hg] DO Fadi House Work Phone: [facility] 04-22-2022 00:30-0400 Heart rate 82 /min DO Fadi House Work Phone: [facility] 04-22-2022 00:30-0400 Respiratory rate 18 /min DO Fadi House Work Phone: [facility] 04-22-2022 00:30-0400 SaO2% (BldA) [Mass fraction] 100 % DO Fadi House Work Phone: [facility] 04-22-2022 00:30-0400 Systolic blood pressure 129 mm[Hg] DO Fadi House Work Phone: [facility] 04-21-2022 21:09-0400 Body height 167.64 cm DO Fadi House Work Phone: [facility] 04-21-2022 21:09-0400 Body mass index (BMI) [Ratio] 37.1 kg/m2 DO Fadi House Work Phone: [facility] 04-21-2022 21:09-0400 Body temperature 97.8 [degF] DO Fadi House Work Phone: [facility] 04-21-2022 21:09-0400 Body weight 104.32 kg DO Fadi House Work Phone: [facility] 03-07-2022 11:50-0400 Diastolic blood pressure 80 mm[Hg] Fadi P House Work Phone: [facility] DO Work Phone: 03-07-2022 11:50-0400 Heart rate 84 /min Fadi P House Work Phone: [facility] DO Work Phone: 03-07-2022 11:50-0400 Systolic blood pressure 100 mm[Hg] Fadi P House Work Phone: [facility] DO Work Phone: 02-14-2022 14:41-0400 Body height 167.64 cm Fadi P House Work Phone: [facility] DO Work Phone: 02-14-2022 14:41-0400 Body mass index (BMI) [Ratio] 36.64 kg/m2 Fadi P House Work Phone: [facility] DO Work Phone: 02-14-2022 14:41-0400 Body surface area Derived from formula 2.11 m2 Fadi P House Work Phone: [facility] DO Work Phone: 02-14-2022 14:41-0400 Body weight 102.97 kg Fadi P House Work Phone: [facility] DO Work Phone: 02-14-2022 14:41-0400 Diastolic blood pressure 90 mm[Hg] Fadi P House Work Phone: [facility] DO Work Phone: 02-14-2022 14:41-0400 Heart rate 84 /min Fadi P House Work Phone: [facility] DO Work Phone: 02-14-2022 14:41-0400 Systolic blood pressure 160 mm[Hg] Fadi P House Work Phone: [facility] DO Work Phone: 02-14-2022 14:41-0400 8 1 Fadi P House Work Phone: [facility] DO Work Phone: Comment on above: PHQ-9 TS 02-06-2022 12:00-0400 Body height 170.18 cm Mika Das Other [employer] Other 02-06-2022 12:00-0400 Body mass index (BMI) [Ratio] 36.33 kg/m2 Tondra Mapus Other [employer] Other 02-06-2022 12:00-0400 Body weight 105.24 kg Tondra Mapus Other [employer] Other 01-22-2022 11:15-0400 Body height 170.18 cm Tondra Mapus Other [employer] Other 01-22-2022 11:15-0400 Body mass index (BMI) [Ratio] 36.65 kg/m2 Tondra Mapus Other [employer] Other 01-22-2022 11:15-0400 Body weight 106.14 kg Tondra Mapus Other [employer] Other 01-22-2022 11:15-0400 Diastolic blood pressure 84 mm[Hg] Tondra Mapus Other [employer] Other 01-22-2022 11:15-0400 Respiratory rate 20 /min Tondra Mapus Other [employer] Other 01-22-2022 11:15-0400 SaO2% (BldA) [Mass fraction] 99 % Tondra Mapus Other [employer] Other 01-22-2022 11:15-0400 Systolic blood pressure 136 mm[Hg] Tondra Mapus Other [employer] Other 01-19-2022 15:45-0400 Body height 170.18 cm Fadi P House Work Phone: [facility] DO Work Phone: 01-19-2022 15:45-0400 Diastolic blood pressure 106 mm[Hg] Fadi P House Work Phone: [facility] DO Work Phone: 01-19-2022 15:45-0400 Heart rate 76 /min Fadi P House Work Phone: [facility] DO Work Phone: 01-19-2022 15:45-0400 Systolic blood pressure 184 mm[Hg] Fadi P House Work Phone: [facility] DO Work Phone: 01-19-2022 15:45-0400 12 1 Fadi P House Work Phone: [facility] DO Work Phone: Comment on above: PHQ-9 TS 01-12-2022 11:50-0400 Body temperature 97.5 [degF] DO Fadi House Work Phone: [facility] 01-12-2022 11:50-0400 Diastolic blood pressure 91 mm[Hg] DO Fadi House Work Phone: [facility] 01-12-2022 11:50-0400 Heart rate 82 /min DO Fadi House Work Phone: [facility] 01-12-2022 11:50-0400 Respiratory rate 20 /min DO Fadi House Work Phone: [facility] 01-12-2022 11:50-0400 SaO2% (BldA) [Mass fraction] 98 % DO Fadi House Work Phone: [facility] 01-12-2022 11:50-0400 Systolic blood pressure 151 mm[Hg] DO Fadi House Work Phone: [facility] 01-12-2022 05:51-0400 Body weight 104.8 kg DO Fadi House Work Phone: [facility] 01-11-2022 15:11-0400 Body height 167.64 cm DO Fadi House Work Phone: [facility] 01-11-2022 11:13-0400 Inhaled oxygen flow rate 2.5 L/min DO Fadi Tenorio Work Phone: [facility] 01-10-2022 22:17-0400 Body mass index (BMI) [Ratio] 37.1 kg/m2 DO Fadi Tenorio Work Phone: [facility] 01-10-2022 20:30-0400 Diastolic blood pressure 72 mm[Hg] DO Fadi Tenorio Work Phone: [facility] 01-10-2022 20:30-0400 Heart rate 90 /min DO Fadi Tenorio Work Phone: [facility] 01-10-2022 20:30-0400 Respiratory rate 18 /min DO Fadi Tenorio Work Phone: [facility] 01-10-2022 20:30-0400 SaO2% (BldA) [Mass fraction] 96 % DO Fadi Tenorio Work Phone: [facility] 01-10-2022 20:30-0400 Systolic blood pressure 151 mm[Hg] DO Fadi Tenorio Work Phone: [facility] 01-10-2022 13:34-0400 Body height 167.64 cm DO Fadi Tenorio Work Phone: [facility] 01-10-2022 13:34-0400 Body mass index (BMI) [Ratio] 37.1 kg/m2 DO Fadi Tenorio Work Phone: [facility] 01-10-2022 13:34-0400 Body temperature 97.8 [degF] DO Fadi House Work Phone: [facility] 01-10-2022 13:34-0400 Body weight 104.32 kg DO Fair Observer Work Phone: [facility] 01-02-2022 14:30-0400 Body height 170.18 cm Agus Pedroza Other [employer] Other 01-02-2022 14:30-0400 Diastolic blood pressure 88 mm[Hg] Agus Pedroza Other [employer] Other 01-02-2022 14:30-0400 SaO2% (BldA) [Mass fraction] 99 % Agus Pedroza Other [employer] Other 01-02-2022 14:30-0400 Systolic blood pressure 120 mm[Hg] Agus Pedroza Other [employer] Other 08-29-2021 15:30-0500 Body height 170.18 cm Nury Martin Other [employer] Other 07-10-2021 14:00-0400 Body height 170.18 cm Sameh Rizkalla Other [employer] Other 07-10-2021 14:00-0400 Diastolic blood pressure 80 mm[Hg] Sameh Rizkalla Other [employer] Other 07-10-2021 14:00-0400 SaO2% (BldA) [Mass fraction] 99 % Sameh Rizkalla Other [employer] Other 07-10-2021 14:00-0400 Systolic blood pressure 130 mm[Hg] Sameh Rizkalla Other [employer] Other 12-29-2020 08:20-0400 Pulse (Heart Rate) 85 /min [facility] Phone: 12-29-2020 08:10-0400 Body Temperature 98.1 [degF] [facility] Phone: 12-29-2020 08:10-0400 BP Diastolic 79 mm[Hg] [facility] Phone: 12-29-2020 08:10-0400 BP Systolic 155 mm[Hg] [employer] Phone: 12-29-2020 08:10-0400 Pulse Oximetry 100 % [facility] Phone: 12-29-2020 08:10-0400 Respiratory Rate 18 /min [employer] Phone: 12-28-2020 11:45-0400 BMI (Body Mass Index) 47.45 kg/m2 [employer] Phone: 12-28-2020 11:45-0400 Body weight 133.36 kg [employer] Phone: 12-28-2020 11:45-0400 Height 167.6 cm [facility] Phone: Encounters Encounter Date Encounter Type Care Provider Facility Start: 09-17-2023 End: 09-17-2023 ambulatory Agus Pedroza Other [employer] Other Start: 09-17-2023 Office outpatient vi sit 15 minutes Agus Pedroza [facility] Start: 09-11-2023 End: 09-12-2023 ambulatory UNKNOWN PROVIDER Facility:[facility] Start: 09-11-2023 End: 09-11-2023 Office outpatient visit 15 minutes Demetri Frank MD Work Phone: [facility] Comment on above: 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, unspecified proliferative retinopathy type (HCC) (Primary Dx) Start: 08-28-2023 End: 08-29-2023 ambulatory FADI P COBY Facility:[facility] Start: 08-02-2023 End: 08-03-2023 ambulatory Radha Bell Facility:[facility] Start: 08-02-2023 End: 08-03-2023 Evaluation and management of inpatient DO Christopher Jack Work Phone: [facility] Work Phone: Start: 08-02-2023 End: 08-03-2023 observation encounter DO Christopher Jack Work Phone: [facility] Work Phone: Start: 08-02-2023 Non-patient / Non-visit DO Ramos on Cotton Work Phone: [facility] Start: 07-25-2023 End: 07-26-2023 ambulatory FADI P COBY Facility:[facility] Start: 07-24-2023 End: 07-24-2023 ambulatory UNKNOWN PROVIDER Facility:[facility] Start: 07-24-2023 End: 07-24-2023 Office outpatient visit 15 minutes Demetri Frank MD Work Phone: [facility] Comment on above: 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, unspecified proliferative retinopathy type (HCC) (Primary Dx) Start: 2023 End: 07-12-2023 ambulatory FADI P COBY Facility:[facility] Start: 06-26-2023 End: 09-25-2023 ambulatory UNKNOWN PROVIDER Facility:[facility] Start: 06-26-2023 End: 06-26-2023 Office outpatient visit 15 minutes Demetri Frank MD Work Phone: [facility] Comment on above: 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, unspecified proliferative retinopathy type (HCC) (Primary Dx) Start: 06-20-2023 End: 06-20-2023 ambulatory Tondra Mapus Other [employer] Other Start: 06-20-2023 Telephone encounter Mika Watson [facility] Start: 05-21-2023 End: 05-21-2023 ambulatory Agus Pedroza Other [employer] Other Start: 05-21-2023 Office outpatient ne w 30 minutes Agus Pedroza [facility] Start: 05-07-2023 End: 05-07-2023 ambulatory Mika Das Other [employer] Other Start: 05-07-2023 Telephone encounter Mika Watson [facility] Start: 04-16-2023 End: 04-18-2023 Evaluation and management of inpatient Fadi Coby Facility:[facility] Start: 04-15-2023 End: 04-18-2023 Evaluation and management of inpatient DO Fadi Tenorio Work Phone: [facility] Work Phone: Start: 04-11-2023 End: 04-11-2023 ambulatory Eliud Eve Other [employer] Other Start: 04-11-2023 Telephone encounter Eliud Eve [facility] Start: 04-10-2023 End: 04-10-2023 ambulatory Eliud Eve Other [employer] Other Start: 04-10-2023 Telephone encounter Eliud Eve [facility] Start: 03-03-2023 End: 03-09-2023 Evaluation and management of inpatient DR MURRAY YEBOAH Facility:[facility] Start: 02-04-2023 Rx Renewal Fadi P Shital higuera Work Phone: [facility] DO Work Phone: Start: 01-31-2023 End: 01-31-[address] FADI TENORIO Facility:[facility] Start: 01-21-2023 End: 01-21-2023 ambulatory Tondra Mapus Other [employer] Other Start: 01-21-2023 Telephone encounter Tondra Mapus [facility] Start: 01-15-2023 End: 01-15-2023 ambulatory Fadi Arthur [employer] Other Start: 01-15-2023 Telephone encounter Tondra Mapus [facility] Start: 01-11-2023 End: 01-11-2023 ambulatory Tondra Mapus Other [employer] Other Start: 01-11-2023 Telephone encounter Tondra Mapus [facility] Start: 01-01-2023 End: 01-01-2023 ambulatory UNKNOWN PROVIDER [employer] Other Start: 01-01-2023 Telephone encounter Tondra Mapus [facility] Start: 12-19-2022 End: 12-19-2022 ambulatory UNKNOWN PROVIDER Facility:[facility] Start: 12-19-2022 End: 12-19-2022 Office outpatient visit 15 minutes Demetri Frank MD Work Phone: [facility] Comment on above: 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, unspecified proliferative retinopathy type (HCC) (Primary Dx) Start: 10-17-2022 End: 10-17-2022 Office outpatient visit 15 minutes Demetri Frank MD Work Phone: [facility] Comment on above: 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, unspecified proliferative retinopathy type (HCC) (Primary Dx) Start: 10-03-2022 End: 10-04-2022 Evaluation and management of inpatient DR FADI TENORIO Facility: Start: 10-01-2022 End: 10-01-2022 ambulatory Tondra Mapus Other [employer] Other Start: 10-01-2022 Telephone encounter Tondra Mapus [facility] Start: 09-03-2022 End: 09-03-2022 ambulatory VJ HADDAD II Facility:[facility] Start: 09-03-2022 Encounter for genera l adult medical examination without abnormal findings VJ HADDAD II [facility] Start: 09-03-2022 End: 09-03-2022 Patient encounter procedure Vj Haddad OD Work Phone: Optometry Comment on above: Disability examinati on (Primary Dx); 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, unspecified whether care home insulin use (HCC); Type 2 diabetes mellitus with proliferative diabetic retinopathy of left eye without macular edema, unspecified whether termite inspector insulin use (HCC); Myopia, bilateral; Regular astigmatism, bilateral; Presbyopia Start: 08-28-2022 End: 08-28-2022 ambulatory Tondra Mapus Other [employer] Other Start: 08-28-2022 Telephone encounter Tondra Mapus [facility] Start: 08-27-2022 End: 08-27-2022 ambulatory Tondra Mapus Other [employer] Other Start: 08-27-2022 Telephone encounter Tondra Mapus [facility] Start: 08-16-2022 End: 08-16-2022 ambulatory Tondra Mapus Other [employer] Other Start: 08-16-2022 Telephone encounter Tondra Mapus [facility] Start: 07-31-2022 End: 07-31-[address] FADI TENORIO Facility: Start: 05-16-2022 (DM) Diabetes Tondra Mapus [facility] Start: 05-16-2022 End: 05-16-2022 ambulatory Tondra Mapus Other [employer] Other Start: 04-21-2022 End: 04-22-2022 Emergency department patient visit DO Fadi House Work Phone: [facility] Start: 04-18-2022 End: 04-18-2022 ambulatory Tondra Mapus Other [employer] Other Start: 04-18-2022 Telephone encounter Tondra Mapus [facility] Start: 03-21-2022 End: 03-21-2022 Office outpatient visit 15 minutes Demetri Frank MD Work Phone: [facility] Comment on above: 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, unspecified proliferative retinopathy type (HCC) (Primary Dx) Start: 03-13-2022 End: 03-13-2022 ambulatory Tondra Mapus Other [employer] Other Start: 03-13-2022 Telephone encounter Tondra Mapus [facility] Start: 03-08-2022 Registered Recurring DO Carlos A ahmadi House Work Phone: [facility] Start: 03-08-2022 (RD) Security Screener Jazzmine Dukes [facility] Start: 03-08-2022 End: 03-08-2022 ambulatory Jazzmine Dukes Other [employer] Other Start: 03-07-2022 End: 03-07-2022 ambulatory Tondra Mapus Other [employer] Other Start: 03-07-2022 Telephone encounter Tondra Mapus [facility] Start: 03-07-2022 Office outpatient vi sit 15 minutes Fadi P House Work Phone: [facility] DO Work Phone: Start: 02-19-2022 End: 02-19-2022 ambulatory Tondra Mapus Other [employer] Other Start: 02-19-2022 Telephone encounter Tondra Mapus [facility] Start: 02-14-2022 End: 02-14-2022 ambulatory Tondra Mapus Other [employer] Other Start: 02-14-2022 Telephone encounter Tondra Mapus [facility] Start: 02-12-2022 Telephone encounter Agustin arzate MD Work Phone: [facility] Comment on above: Other sympt/complt o f eye Start: 02-06-2022 End: 02-06-2022 ambulatory Tondra Mapus Other [employer] Other Start: 02-06-2022 Nursing evaluation o f patient and report Tondra Mapus [facility] Start: 02-06-2022 Registered Recurring DO Carlos A s House Work Phone: [facility] Start: 01-26-2022 End: 01-26-2022 ambulatory Tondra Mapus Other [employer] Other Start: 01-26-2022 Nursing evaluation o f patient and report Tondra Mapus [facility] Start: 01-22-2022 (DM) Diabetes Tondra Mapus [facility] Start: 01-22-2022 End: 01-22-2022 ambulatory Tondra Mapus Other [employer] Other Start: 01-19-2022 Tobacco use cessatio n intermediate 3-10 minutes Fadi P House Work Phone: [facility] DO Work Phone: Start: 01-11-2022 End: 01-12-2022 Evaluation and management of inpatient DO Fadi House Work Phone: [facility] Start: 01-10-2022 End: 01-12-2022 Evaluation and management of inpatient DO Fadi Tenorio Work Phone: [facility] Start: 01-02-2022 End: 01-02-2022 ambulatory Agus Pedroza Other [employer] Other Start: 01-02-2022 Office outpatient vi sit 10 minutes Agus Pedroza [facility] Start: 08-29-2021 End: 08-29-2021 ambulatory Nury Ginty Other [employer] Other Start: 08-29-2021 Office outpatient vi sit 15 minutes Nury Ginty [facility] Start: 08-09-2021 End: 08-09-2021 ambulatory Tondra Mapus Other [employer] Other Start: 08-09-2021 Telephone encounter Tondra Shayneus [facility] Start: 07-21-2021 End: 07-21-2021 ambulatory Tondra Mapus Other [employer] Other Start: 07-21-2021 Telephone encounter Tondra Shayneus [facility] Start: 07-20-2021 [facility] visit new patient Mika Das [facility] Start: 07-10-2021 Office outpatient vi sit 15 minutes Libetrad Mela [facility] Start: 12-28-2020 End: 12-29-2020 Evaluation and management of inpatient SR FADI TENORIO [facility] Start: 12-28-2020 End: 12-28-2020 Patient encounter procedure AARON FRIEND [facility] Start: 12-28-2020 End: 12-29-2020 Evaluation and management of inpatient Koel Koehler Work Phone: [id number] Telemetry Comment on above: Peripheral vascular occlusive disease (HCC) (Primary Dx); Renal insufficiency Start: 12-28-2020 End: 12-28-2020 Subsequent hospital visit by physician Aaron Friend Work Phone: [facility] Comment on above: Arrived Start: 12-20-2020 End: 12-23-2020 Patient encounter procedure AARON FRIEND [facility] Start: 12-20-2020 End: 12-22-2020 Subsequent hospital visit by physician [facility] [facility] Room [address] [facility] [address] Scan Comment on above: 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) Start: 01-08-2019 End: 01-08-2019 Patient encounter procedure Fatoumata YbarraCirlio Candida Facility:[facility] Start: 12-30-2018 End: 12-31-2018 Patient encounter procedure Fatoumata Tirado Facility:[facility] Procedures Date Procedure Procedure Detail Performing Clinician [...] and pe lvis without contrast DO Fadi Arthur Work Phone: Start: 01-08-2023 Computerized ophthal yomi imaging retina Maddie Lau MD Work Phone: Start: 01-01-2023 End: 01-08-2023 Oph medical xm&eval comprhnsv estab pt 1/> Diabetes mellitus with insulin therapy (HCC) Party Director Comment on above: Diabetes mellitus wi th [...] 01-11-2022 CL [facility] & COR Angio DO [facility] Work Phone: Start: 01-10-2022 Duplex scan of lower limb veins DO Fadi Arthur Work Phone: Start: 01-10-2022 CT of head without contrast DO [facility] Work Phone: Start: 01-10-2022 SARS Antigen (LFIA) DO [facility] Work Phone: Start: 01-10-2022 Plain chest X-ray DO [facility] Work Phone: Start: 12-29-2020 Gluc bld [...] Cta abdl aorta&bi il iofem w/contrast&postp [facility] Work Phone: Start: 12-20-2020 POCT VENOUS Unknown Pr ovider Result Start: 01-13-2019 Anesthesia consultation Fatoumata Tirado Start: 01-08-2019 Anesthesia consultation Fatoumata Tirado Start: 10-14-2011 Total colonoscopy Charl guille P [employer] Work Phone: Amputation of lower limb Neeta rles P [employer] Work Phone: Placement of stent i n coronary artery Fadi Neves [employer] Work Phone: Surgical procedure Fadi Neves [employer] Work Phone: Plan of Treatment Date Care Activity Detail Author Start: 04-09-2026 DTaP/Tdap/Td vaccine (2 - Td) DTaP/Tdap/Td vaccine (2 - Td) [employer] Work Phone: Start: 04-09-2026 [facility] Start: 12-14-2024 LIPID SCREEN LIPID SCREEN [facility] Start: 11-06-2024 Glaucoma screening Eye Exam [facility] Start: 09-11-2024 Glaucoma screening Eye Exam [facility] Start: 08-03-2024 Creatinine measurement Basic Metabol ic [facility] Start: 08-02-2024 Lipid panel Lipid Profile [facility] Start: 07-24-2024 Diabetic retinal eye exam Eye [facility] Start: 06-06-2024 Creatinine measurement Basic Metabol ic Panel [facility] Start: 05-27-2024 Lipid panel Lipid Profile [facility] Start: 02-21-2024 Diabetic retinal eye exam [facility] Start: 02-01-2024 Hemoglobin A1c measurement Hemoglobin A1C [facility] Start: 12-20-2023 Diabetic retinal eye exam [facility] Start: 11-29-2023 Hemoglobin A1c measurement Hemoglobin A1C [facility] Start: 11-06-2023 End: 11-06-2023 Patient encounter procedure 11/06/2023 3:00 PM EST Office [facility] [address] [place] [address] Demetri Frank MD [address] [facility] [place] [address] Fret Saw Operator, Eye [facility] Start: 10-17-2023 Diabetic retinal [facility] exam [facility] Start: 09-11-2023 End: 09-11-2023 Patient encounter procedure 09/11/2023 3:00 PM EST [facility] [address] [place] [address] Demetri Frank MD [address] [facility] [place] [address] Fret Saw Operator, Eye [facility] Start: 08-06-2023 Basic metabolic 2000 panel - Serum or Plasma Basic Metabolic Panel [facility] Start: 08-03-2023 Patient status observation [facility] Start: 08-03-2023 Patient discharge [facility] Start: 08-02-2023 Bacteria identified in Blood by Culture Blood Culture [facility] Start: 08-02-2023 Microbial culture Blood Culture [facility] Start: 08-02-2023 Evaluation procedure [facility] Start: 08-02-2023 Hospital admission [facility] Start: 08-02-2023 [facility] Start: 08-02-2023 [facility] Start: 08-02-2023 EKG 12 channel panel [facility] Start: 08-02-2023 Administrative procedure [facility] Start: 06-14-2023 Influenza vaccination Influenza Vacc ine (#1) [facility] Start: 04-18-2023 [facility] Start: 04-18-2023 [facility] Start: 04-16-2023 Referral to engine wiper [facility] Start: 04-16-2023 Hospital admission [facility] Start: 04-15-2023 Sleep disorder assessment [facility] Start: 04-03-2023 Hemoglobin A1c measurement Hemoglobin A1C [facility] Start: 03-21-2023 Diabetic retinal eye exam Eye Exam [facility] Start: 02-20-2023 End: 02-20-2023 Patient encounter procedure 02/20/2023 Office Visit Ophthalmology Demetri Frank MD [address] [place] [address] Fret Saw Operator, Eye [facility] Start: 01-11-2023 Lipid panel Lipid Profile [facility] Start: 10-20-2022 Diabetic retinal eye exam Eye Exam [facility] Start: 07-28-2022 Basic metabolic 2000 panel - Serum or Plasma Basic Metabolic Panel [facility] Start: 07-14-2022 Influenza vaccination Influenza Vacc ine (#1) [facility] Start: 07-13-2022 Hemoglobin A1c measurement Hemoglobin A1C [facility] Start: 06-14-2022 Influenza vaccination INFLUENZA (#1) [facility] Start: 05-02-2022 End: 05-02-2022 Patient encounter procedure 05/02/2022 Office Visit Ophthalmology Demetri Frank MD [address] [place] [address] Fret Saw Operator, Eye [facility] Start: 04-21-2022 Plain chest X-ray XR chest 2V* [facility] Start: 04-18-2022 FUV, Provider: Aicha Terrazas, Status: Pen, Time: 2:30 PM FUV, Provider: Aicha Terrazas, Status: Pen, Time: 2:30 PM [facility] 250 DO Work Phone: Start: 03-21-2022 End: 03-21-2022 Patient encounter procedure 03/21/2022 Office Visit Ophthalmology Demetri Frank MD [address] [place] [address] [facility] Start: 02-12-2022 FUV, Provider: Aicha Terrazas, Status: Pen, Time: 1:00 PM FUV, Provider: Aicha Terrazas, Status: Pen, Time: 1:00 PM [facility] 250 DO Work Phone: Start: 01-20-2022 Hemoglobin A1c measurement Hemoglobin A1C [facility] Start: 01-10-2022 Duplex scan of lower limb veins US venous duplex LE BI [facility] Start: 01-10-2022 Fluoroscopy of Left Heart using Low Osmolar Contrast Fluoroscopy of Left Heart using Low Osmolar Contrast [facility] Start: 01-10-2022 Fluoroscopy of Multi ple Coronary Arteries using Low Osmolar Contrast Fluoroscopy of Multiple Coronary Arteries using Low Osmolar Contrast [facility] Start: 01-10-2022 Measurement of Cardi ac Sampling and Pressure, Left Heart, Percutaneous Approach Measurement of Cardiac Sampling and Pressure, Left Heart, Percutaneous Approach [facility] Start: 12-29-2021 Creatinine measurement Creatinine mo nitoring [facility] Work Phone: Start: 12-29-2021 Potassium monitoring Potassium monit [facility] Work Phone: Start: 10-14-2021 [facility]ION [facility]MENT [facility] Start: 2021 Measurement of occul t blood in single stool specimen FIT [facility] Start: 2021 Screening for malign ant neoplasm of colon [facility] Start: 2021 Shingles (RZV) Vacci ne (1 of 2) Shingles (RZV) Vaccine (1 of 2) [facility] Start: 2021 SHINGRIX VACCINE (1 of 2) SHINGRIX VACCINE (1 of 2) [facility] Start: 12-28-2020 End: 12-28-2020 Appointment 12/28/2020 Appointment IP Unit [facility] Start: 12-14-2020 Lipid panel Lipid Profile [facility] Start: 2016 COLOGUARD (FIT-DNA) COLOGUARD (FIT-D NA) [facility] Start: 2016 Colonoscopy COLONOSCOPY [facility] Start: 2016 COLORECTAL CANCER SCREENING COLORECTAL CANCER SCREENING [facility] Start: [address] COLONOGRAPHY [facility] Start: 2016 DIABETES SCREEN DIABETES SCREEN [facility] Start: 2016 FECAL OCCULT BLOOD FECAL OCCULT BLOO D [facility] Start: 2016 Screening for malign ant neoplasm of colon [facility] Start: 2016 SIGMOIDOSCOPY SIGMOIDOSCOPY [facility] Start: 2011 Diabetes screen Diabetes screen [facility] Work Phone: Start: 2011 Lipid panel Lipid screen [facility] Work Phone: Start: 1990 Hepatitis B vaccination Hepati tis B (HBV) Vaccine (1 of 3 - Risk 3-dose series) [facility] Start: 1990 Urine microalbumin profile DTAP,TDAP,TD (1 - Tdap) [facility] Start: 1989 Hepatitis C screening Hepatitis C An tibody [facility] Start: 1989 HEPATITIS C SCREENING HEPATITIS C SC REENING [facility] Start: 1989 HIV SCREENING HIV SCREENING [facility] Start: 1986 HIV screening [facility] Start: 1981 Lipid panel Lipid screen [facility] Work Phone: Start: 1977 PNEUMOCOCCAL (1 - PCV) PNEUMOCOCCAL (1 - PCV) [facility] Start: 1977 Pneumococcal vaccination Pneum ococcal Vaccine(s) (1 - PCV) [facility] Start: 1976 COVID-19 Vaccine (#1) COVID-19 Vacci ne (#1) [facility] Start: 1976 COVID-19 Vaccine (1) COVID-19 Vaccin e (1) [facility] Start: 01-09-1972 COVID-19 VACCINE (#1) COVID-19 VACCI NE (#1) [facility] Start: 1971 Urine screening for protein Microalbumin [facility] Start: 1971 Diabetic foot examination Foot Exam [facility] Start: 1971 HEPATITIS B (1 of 3 - 3-dose series) HEPATITIS B (1 of 3 - 3-dose series) [facility] Start: 1971 Hepatitis B vaccination Hepati tis B (HBV) Vaccine (1 of 3 - 3-dose series) [facility] Start: 1971 Hepatitis C screening Hepatitis C sc [facility] b-datum Phone: Start: 1971 Screening for malign ant neoplasm of colon Colonoscopy [facility] Bacteria identified in Unspecified specimen by Anaerobe+Aerobe culture [facility] End: 12-28-2020 Basic metabolic 2000 panel Basic Metabolic Panel Lab Routine One Time for 1 Occurrences starting 12/28/2020 until 12/28/2020 b-datum Phone: Comment on above: One Time for 1 Occur rences starting 12/28/2020 until 12/28/2020 End: 12-28-2020 Catheterization and angiography procedure details panel Diagnostic Cardiac Java Android Developer Procedure Cardiac Cath Routine One Time for 1 Occurrences starting 12/28/2020 until 12/28/2020 b-datum Phone: Comment on above: One Time for 1 Occur rences starting 12/28/2020 until 12/28/2020 End: 12-28-2020 CBC CBC Lab Routine One Time for 1 Occurrences starting 12/28/2020 until 12/28/2020 b-datum Phone: Comment on above: One Time for 1 Occur rences starting 12/28/2020 until 12/28/2020 Glucose measurement estimated from glycated hemoglobin [facility] Work Phone: Hemoglobin A1c/Hemoglobin.total in Blood [facility] Work Phone: IgA [Mass/volume] in Serum or Plasma [facility] IgG [Mass/volume] in Serum or Plasma [facility] IgM [Mass/volume] in Serum or Plasma [facility] Immunofixation for Urine Fir [facility] [employer] light chains.f ree [Mass/volume] in Serum [facility] [employer] light chains.free/Lambda light chains.free [Mass Ratio] in Serum [facility] Lambda light chains. 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 to underlying condition (HCC) 01/01/2023 5:57 PM EDT [employer] Work Phone: Oxygen therapy [[facility] Data Set] Initiate Oxygen Therapy Protocol Respiratory Care Routine Daily until discontinued starting 12/28/2020 [employer] Work Phone: Comment on above: Daily until disconti nued starting 12/28/2020 Patient Education [facility] Work Phone: Patient referral [facility] Work Phone: End: 12-20-2020 POCT Creatinine POCT Creatinine Point of Care Testing Routine One Time for 1 Occurrences starting 12/20/2020 until 12/20/2020 [employer] Work Phone: Comment on above: One Time for 1 Occur rences starting 12/20/2020 until 12/20/2020 POCT Glucose [facility] Work Phone: Comment on above: As Needed until disc ontinued starting 12/28/2020 4X Daily (AC & HS) u ntil discontinued starting 12/28/2020 Serum immunofixation [facility] Thyrotropin [Units/volume] in Serum or Plasma [facility] Work Phone: Troponin I.cardiac [Mass/volume] in Serum or Plasma by High sensitivity method [facility] Work Phone: End: 12-28-2020 TYPE AND SCREEN TYPE AND SCREEN Blood Bank Routine One Time for 1 Occurrences starting 12/28/2020 until 12/28/2020 [facility] Work Phone: Comment on above: One Time for 1 Occur rences starting 12/28/2020 until 12/28/2020 Immunizations Immunization Date Immunization Notes Care Provider [facility] 08-02-2023 Hemoglobin A1C Demetri garland MD Work Phone: [facility] 05-29-2023 Hemoglobin A1C Demetri garland MD Work Phone: [facility] 10-03-2022 Hemoglobin A1C Demetri garland MD Work Phone: [facility] 05-16-2022 Hemoglobin A1C Demetri garland MD Work Phone: [facility] 01-10-2022 Hemoglobin A1C Demetri garland MD Work Phone: [facility] 07-22-2021 Hemoglobin A1C Agustin Hampton MD Work Phone: [facility] 10-14-2020 influenza, injectabl e, quadrivalent, contains preservative Agustin Hampton MD Work Phone: [facility] 10-14-2020 influenza virus vaccine, unspecified formulation Demetri Frank MD Work Phone: [facility] 10-01-2020 influenza, injectabl e, quadrivalent, preservative free Fadi Banner Work Phone: [facility] 250 DO Work Phone: 12-23-2019 Influenza, injectabl e, Madin Spencer Canine Kidney, preservative free, quadrivalent DO [facility] Work Phone: [facility] 04-09-2016 tetanus toxoid, reduced diphtheria toxoid, and acellular pertussis vaccine, adsorbed [facility] Work Phone: [facility] Payers Date Payer Category Payer Medicare [id number] 2023 Medicare [id number] 2022 Unknown 2021 Self-pay [id number] 2020 Medicaid [id number] 2018 Private Health Insurance [id number] 1971 Unknown [id number] 2.16.84 0.1.359970.3.579.2.727 1971 Unknown [id number] 2.16.84 0.1.444402.3.579.2.727 1971 Unknown [id number] 2.16.8 40.1.933911.3.579.2.182 1971 Unknown [id number] 2.16.8 40.1.758935.3.579.2.182 1971 Unknown [id number] 2.16.8 40.1.443591.3.579.2.182 1971 Unknown [id number] 2.16.84 0.1.543631.3.579.2.593 1971 Unknown [id number] 2.16.84 0.1.633195.3.579.2.593 1971 Unknown [id number] 2.16.84 0.1.146843.3.579.2.593 1971 Unknown [id number] 2.16.84 0.1.837434.3.579.2.593 1971 Unknown [id number] 2.16.8 40.1.835040.3.579.2.718 1971 Unknown [id number] 2.16.8 40.1.014043.3.579.2.718 1971 Unknown [id number] 2.16. 840.1.239371.3.579.2.732 1971 Unknown [id number] 2.16. 840.1.078155.3.579.2.732 1971 Unknown [id number] 2.16. 840.1.752971.3.579.2.732 1971 Unknown [id number] 2.16. 840.1.415785.3.579.2.732 1971 Unknown [id number] 2.16. 840.1.876440.3.579.2.732 1959 Private Health Insurance [id number] 1.2.840.499315.1.13.239.2.7.3.049933.315 1959 Unknown [id number] Unknown [id number] Unknown [id number] 2.16. 840.1.637842.3.579.2.1149 Unknown [id number] 2.16. 840.1.984652.3.579.2.1149 Unknown [id number] 2.16. 840.1.585386.3.579.2.1149 Unknown [id number] 2.16. 840.1.969125.3.579.2.1149 Unknown [id number] 2.16.8 40.1.506761.3.579.2.531 Unknown [id number] 2.16.8 40.1.077629.3.579.2.531 Social History Date Type Detail Facility Start: 12-20-2020 Tobacco smoking status CAIS Unknown if ever smoked [facility] Start: 1970 Sex Assigned At Not on file [employer] Phone: Start: 08-24-2022 End: 09-03-2022 Exposure to SARS-CoV-2 (event) Not sure [employer]dat[employer] Phone: Start: 12-28-2020 End: 04-21-2022 Tobacco smoking status NHIS Former smoker [facility] Start: 12-28-2020 End: 09-03-2022 Tobacco use and exposure Never used [facility] Phone: Start: 12-28-2020 End: 09-03-2022 Alcohol intake Ex-drinker (finding) [facility] Phone: Start: 01-10-2022 End: 04-17-2023 Tobacco smoking status NHIS Smoker (finding) [facility] Start: 1970 Sex Assigned At Male F [facility] No illicit drug use No illicit drug use [facility] 250 DO Work Phone: Comment on above: coffee 1 big gulp - pop 4 daily; 1/2 ppd; Sex Assigned At [employer] [facility] [employer] Other Start: 09-03-2022 Tobacco smoking status CAIS Smokes tobacco daily [facility] History of tobacco use Cigarette Smoker [facility] Start: 08-02-2023 Tobacco smoking status NHIS Never smoker [facility] Start: 08-02-2023 Tobacco smoking status CAIS Current every day smoker [facility] Medical Equipment Procedure Code Equipment Code Equipment Origin al Text Equipment Identifier Dates USE WITH INSULIN FIVE TIMES DAILY AND NEEDED [id number] Start: 10-23-2020 TEST FIVE TIMES DAILY [id number] Start: 10-23-2020 Goals Date Patient Goal Desired Activity /State Functional Status Date Assessment Result Facility 04-18-2023 Functional status Patient at Baseline [facility] Work Phone: 02-14-2022 PHQ-9 [id number] Mild (5-9) [facility] 250 DO Work Phone: 01-19-2022 PHQ-9 [id number] Moderate (10-14) [facility] 250 DO Work Phone: 01-12-2022 Functional status Patient at Baseline [facility] Work Phone: Mental Status Date Assessment Result Facility 04-18-2023 Cognitive function Cognitive Sta tus Patient at Baseline [facility] Work Phone: 01-12-2022 Cognitive function Cognitive Sta tus Patient at Baseline [facility] Work Phone: Clinical Notes 07-10-2021 to 10-17-2023 Note Date & Type Note Facility 10-17-2023 Note Entered by MURRAY TENORIO DO on October 17, 2023 16:37:15 EST From: FADI TENORIO DO To: [employer] Sent: 10/17/2023 16:37:15 EST Subject: Medication Management Submitted: Complete:tamsulosin (tamsulosin 0.4 mg oral capsule) Signed by FADI TENORIO DO 10/17/2023 16:37:00 EST Submitted: Complete:bumetanide (bumetanide 2 mg oral tablet) Signed by FADI TENORIO DO 10/17/2023 16:37:00 EST Submitted: Complete:potassium chloride (Potassium Chloride (Vxk-Cgrj-Ttm M20) 20 mEq oral tablet, extended release) Signed by FADI TENORIO DO 10/17/2023 16:37:00 EST Approved with modifications: bumetanide (Bumetanide 2MG TABS) TAKE 1 TABLET BY MOUTH TWICE A DAY BEFORE MEALS Qty: 56 tab(s) Days Supply: 28 Refills: 2 Substitutions Allowed Route To Pharmacy [facility] Note from Pharmacy: Maximum Refills Reached Approved with modifications: potassium chloride (Potassium Chloride Ria ER 20MEQ TBCR) TAKE 1 TABLET BY MOUTH EVERY MORNING Qty: 28 tab(s) Days Supply: 28 Refills: 2 Substitutions Allowed Route To [facility] Note from Pharmacy: Maximum Refills Reached Approved with modifications: tamsulosin (Tamsulosin HCl 0.4MG CAPS) TAKE 1 CAPSULE BY MOUTH AT BEDTIME Qty: 28 cap(s) Days Supply: 28 Refills: 2 Substitutions Allowed Route To Pharmacy [facility] Note from Pharmacy: Maximum Refills Reached From: [facility] - To: COBY FADI Edinson MORALES Sent: October 17, 2023 3:05:41 PM SHANK SANDER Subject: Medication Management Due: October 18, 2023 12:03:12 AM SHANK SANDER On Hold Pending Signature Drug: bumetanide (bumetanide [...] Pending Signature Drug: potassium chloride (Potassium Chloride (Oos-Bzgk-Hro M20) 20 mEq oral tablet, extended release), TAKE 1 TABLET BY MOUTH EVERY MORNING Quantity: 28 tab(s) Days Supply: 28 Refills: 0 Substitutions Allowed Notes from Pharmacy: Maximum Refills Reached-- this med was precribed during hospital stay, please send refill if appropriate Dispensed Drug: potassium chloride (Potassium Chloride (Hpy-Aywj-Tqx M20) 20 mEq oral tablet, extended release), [...] Allowed Notes from Pharmacy: Maximum Refills Reached [facility] 09-17-2023 Evaluation note Encounter Date Diagnosis Assessment Notes Sep, 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 Discussed diligent skin monitoring for breakdown given history of revision due to postop complications at operative site. Sep, Muscle spasm (ICD-10 - M62.838) [employer] Other 11-29-2023 History of Present illness Narrative* [...] OU OCT mac OU documented in this [id number] NoteEntered by FADI TENORIO DO on August 28, 2023 09:11:44 EST From: FADI TENORIO DO To: [facility] Sent: 08/28/2023 09:11:44 EST Subject: Medication Management Documented Complete:potassium chloride (Potassium Chloride (Jem-Qqzk-Xpr M20) 20 mEq oral tablet, extended release) [...] 28 Refills: 0 Substitutions Allowed Route To [facility] Note from Pharmacy: Maximum Refills Reached-this med was prescribed after a recent hospital stay, please send new rx if patient is to continue taking this medication- Thank you Approved bumetanide (Bumetanide 2MG TABS) TAKE 1 TABLET BY MOUTH TWICE A DAY BEFORE MEALS Qty: 56 tab(s) Days Supply: 28 Refills: 0 Substitutions Allowed Route To Pharmacy [facility] Note from Pharmacy: Maximum Refills Reached- this dose was given after hospital stay, please send refill if appropriate Approved potassium chloride (Potassium Chloride Ria ER 20MEQ TBCR) TAKE 1 TABLET BY MOUTH EVERY MORNING Qty: 28 tab(s) Days Supply: 28 Refills: 0 Substitutions Allowed Route To Pharmacy - [facility] - Judy Trujillo Note from Pharmacy: Maximum Refills Reached-- this med was precribed during hospital stay, please send refill if appropriate Patient matched by FADI TENORIO DO on 08/28/2023 09:11:04 EST From: [facility] - To: FADI TENORIO DO Sent: August 28, 2023 7:51:26 AM SHANK SANDER Subject: Medication Management Due: August 29, 2023 12:10:43 AM SHANK SANDER On Hold Pending Signature Drug: tamsulosin (tamsulosin [...] Pending Signature Drug: potassium chloride (Potassium Chloride (Vrt-Koxp-Udn M20) 20 mEq oral tablet, extended release), TAKE 1 TABLET BY MOUTH EVERY MORNING Quantity: 28 tab(s) Days Supply: 28 Refills: 0 Substitutions Allowed Notes from Pharmacy: Maximum Refills Reached- rx sent upon discharge from recent hospital stay, please send refill if appropriate Dispensed Drug: potassium chloride (Potassium Chloride (Iku-Ujkp-Qeq M20) 20 mEq oral tablet, extended release), TAKE 1 TABLET BY MOUTH EVERY MORNING Quantity: 28 tab(s) Days Supply: 28 Refills: 0 Substitutions Allowed Notes from Pharmacy: Maximum Refills Reached-- this med was precribed during hospital stay, please send refill if appropriate [id number] Discharge summary Author Harjeet Ruelas [facility] August 03, 2023 1:06pm Note Date/Time August 03, 2023 1 0:59am [place] [address] Discharge Summary Signed Patient: Chandler Minor MR#: [id number] : 1970 Acct: [id number] Age/Sex: 53 / M Date of Service: 08/02/23 Loc: [facility] 4828-[address]: Harjeet Ruelas M.D. cc: [...] units. Patient reports that he came to [place] to see his mom. Patient reports chronic [...] or Physician's Assistantworking with me, had a Ixba-nh-Zpbi encounter. Based on my findings, the services [...] no hepatosplenomegaly, no rebound tenderness or guarding CERTIFIED PEER SPECIALIST?alert oriented x3, CN II to XII [...] Lymph % (Auto) 12.2 L D Cancelled [place] % (Auto) 7.5 D Cancelled Eos % (Auto) 3.0 D Cancelled Baso % (Auto) 0.3 Cancelled Neut # (Auto) 7.89 H D Cancelled Lymph # (Auto) 1.26 D Cancelled [place] # (Auto) 0.77 D Cancelled Eos # [...] MPV Neut % (Auto) Lymph % (Auto) [place] % (Auto) Eos % (Auto) Baso % (Auto) Neut # (Auto) Lymph # (Auto) [place] # (Auto) Eos # (Auto) Baso # [...] MPV Neut % (Auto) Lymph % (Auto) [place] % (Auto) Eos % (Auto) Baso % (Auto) Neut # (Auto) Lymph # (Auto) [place] # (Auto) Eos # (Auto) Baso # [...] Breath Or Wheezing) fluticasone propionate 50 mcg/actuation [place],Suspension 2 spray INTRANASAL DAILY PRN (Reason: allergies) [...] 1058 Signed By: <Electronically signed by Harjeet Ruelas M.D.> 08/03/23 1306 [facility] Work Phone: 1(351) 910-888810-21-2023 [place] [id number] Discharge Summary Signed Patient: Chandler Minor MR#: [id number] : 1970 Acct: [id number] Age/Sex: 53 / M Date of Service: 08/02/23 Loc: [facility] 4828-[address]: Harjeet Ruelas M.D. cc: [...] units. Patient reports that he came to [place] to see his mom. Patient reports chronic [...] I, or a Nurse Practitioner or Physician's Assistant [employer] Manager working with me, had a Mdle-uc-Jaoo encounter. Based on my findings, the services [...] no hepatosplenomegaly, no rebound tenderness or guarding CERTIFIED PEER SPECIALIST???alert oriented x3, CN II to XII [...] Hct 34.3 L Canc (more content not included)...[facility] 08-03-2023 Hospital Discharge instructions Additional Instructions Please make an appointment with your PCP in 1 to 2 weeks Maintain glucose levels [facility] [place] Work Phone: 1(740) 634-119810-20-2023 Consult note Author Marcelino Abel [facility] August 02, 2023 2:46pm Note Date/Time August 02, 2023 1 1:10am [address] [address] Neurology Consult Note Signed Patient: Chandler Minor MR#: [id number] : 1970 Acct: [id number] Age/Sex: 53 / M Date of Service: 08/02/23 Loc: [facility] 4828-[address]: Helen Jovel M.D. cc: [...] No Would like to be referred to [employer] for info?: No Smoking Status: Current every [...] 87.4 H Lymph % (Auto) 6.3 L [place] % (Auto) 3.4 L Eos % (Auto) 2.0 Baso % (Auto) 0.3 Neut # (Auto) 12.71 H Lymph # (Auto) 0.92 [place] # (Auto) 0.50 Eos # (Auto) 0.29 [...] Color Urine Appearance Urine pH Ur Specific [place] Urine Protein Urine Glucose (UA) Urine Ketones [...] MPV Neut % (Auto) Lymph % (Auto) [place] % (Auto) Eos % (Auto) Baso % (Auto) Neut # (Auto) Lymph # (Auto) [place] # (Auto) Eos # (Auto) Baso # [...] Color Urine Appearance Urine pH Ur Specific [place] Urine Protein Urine Glucose (UA) Urine Ketones [...] MPV Neut % (Auto) Lymph % (Auto) [place] % (Auto) Eos % (Auto) Baso % (Auto) Neut # (Auto) Lymph # (Auto) [place] # (Auto) Eos # (Auto) Baso # [...] Color Urine Appearance Urine pH Ur Specific [place] Urine Protein Urine Glucose (UA) Urine Ketones [...] MPV Neut % (Auto) Lymph % (Auto) [place] % (Auto) Eos % (Auto) Baso % (Auto) Neut # (Auto) Lymph # (Auto) [place] # (Auto) Eos # (Auto) Baso # [...] Appearance Clear Urine pH 5.0 Ur Specific [place] 1.015 Urine Protein 300 A Urine Glucose [...] study as part of stroke work-up 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 Rest of the management per primary team Documented By: Marcelino Abel M.D. 08/02/23 1107 Signed By: <Electronically signed by Marcelino Abel M.D.> 08/02/23 7010 [facility] Work Phone: 1(726) 750-737610-20-2023 History and physical note Author Harjeet Ruelas [facility] August 02, 2023 2:16pm Note Date/Time August 02, 2023 1 1:18am [place] [address] Internal Med History&Physical Signed Patient: Chandler Minor MR#: [id number] : 1970 Acct: [id number] Age/Sex: 53 / M Date of Service: 08/02/23 Loc: [facility] 4828-[address]: Helen Jovel M.D. cc: [...] micturition. Patient reports that he came to [place] to see his mom. 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, CN II to XII [...] (Clear) Urine pH 5.0 (<=7.5) Ur Specific [place] 1.015 (1.005-1.025) Urine Protein 300 A (Negative) [...] signed by Harjeet Ruelas M.D.> 08/02/23 1416 [facility] Work Phone: 1(449) 958-250710-20-2023 Progress note Author Christopher Santiago [facility] August 02, 2023 6:27am Note Date/Time August 02, 2023 4 :27am [place] [address] Emergency Department Note Signed Patient: Chandler Minor MR#: [id number] : 1970 Acct: [id number] Age/Sex: 53 / M Date of [...] No Would like to be referred to Thread Spinner for info?: No Smoking Status: Never smoker [...] Daniel Coma Scale Eye Opening: No response Boston coma scale verbal response: No response Daniel Coma Scale Motor Response: Withdraws in response to pain Boston coma scale total score: 6 Sensorium/orientation: lethargic [...] highlighted in the diagnostics section of the [employer] record. Imaging studies reviewed and interpreted by myself and the radiologist. Radiology interpretations are found in the diagnostics section of the [employer] record. Lab Data 08/02/23 04:24 08/02/23 04:24 [...] Lymph % (Auto) 6.3 L (13.4-45.1) % [place] % (Auto) 3.4 L (4.0-12.7) % Eos % (Auto) 2.0 (0.0-5.8) % Baso % (Auto) 0.3 (0.0-1.3) % Neut # (Auto) 12.71 H (1.70-7.00) 10*3/uL Lymph # (Auto) 0.92 (0.80-3.30) 10*3/uL [place] # (Auto) 0.50 (0.30-0.90) 10*3/uL Eos # [...] (41.1-75.9) % Lymph % (Auto) (13.4-45.1) % [place] % (Auto) (4.0-12.7) % Eos % (Auto) (0.0-5.8) % Baso % (Auto) (0.0-1.3) % Neut # (Auto) (1.70-7.00) 10*3/uL Lymph # (Auto) (0.80-3.30) 10*3/uL [place] # (Auto) (0.30-0.90) 10*3/uL Eos # (Auto) [...] signed by Christopher Santiago D.O.> 08/02/23 06 [facility] Work Phone: 1(240) 302-992910-20-2023 Progress note Author Christopher Santiago [facility] August 02, 2023 6:27am Note Date/Time August 02, 2023 4 :27am [facility] [address] [place] [address] [place] [address] Emergency Department Note Signed Patient: Chandler Minor MR#: [id number] : 1970 Acct: [id number] Age/Sex: 53 / M Date of [...] No Would like to be referred to Thread Spinner for info?: No Smoking Status: Never smoker [...] Motor Response: Withdraws in response to pain Boston coma scale total score: 6 Sensorium/orientation: lethargic [...] highlighted in the diagnostics section of the [employer] record. Imaging studies reviewed and interpreted by myself and the radiologist. Radiology interpretations are found in the diagnostics section of the [employer] record. Lab Data 08/02/23 04:24 08/02/23 04:24 [...] Lymph % (Auto) 6.3 L (13.4-45.1) % [place] % (Auto) 3.4 L (4.0-12.7) % Eos % (Auto) 2.0 (0.0-5.8) % Baso % (Auto) 0.3 (0.0-1.3) % Neut # (Auto) 12.71 H (1.70-7.00) 10*3/uL Lymph # (Auto) 0.92 (0.80-3.30) 10*3/uL [place] # (Auto) 0.50 (0.30-0.90) 10*3/uL Eos # [...] (41.1-75.9) % Lymph % (Auto) (13.4-45.1) % [place] % (Auto) (4.0-12.7) % Eos % (Auto) (0.0-5.8) % Baso % (Auto) (0.0-1.3) % Neut # (Auto) (1.70-7.00) 10*3/uL Lymph # (Auto) (0.80-3.30) 10*3/uL [place] # (Auto) (0.30-0.90) 10*3/uL Eos # (Auto) [...] signed by Christopher Santiago D.O.> 08/02/23 0627 [facility] Work Phone: [phone] NoteRight Eye Quality was good. Scan locations included subfoveal. Progression has improved. Findings include abnormal foveal contour. Left Eye Quality was poor.[id number] History of Present illness Narrative* Demetri Frank [...] OU OCT mac OU documented in this [id number] NoteRight Eye Quality was good. Scan locations included subfoveal. Progression has worsened. Findings include abnormal foveal contour, intraretinal fluid. Left Eye Quality was borderline. Scan locations included subfoveal. Progression has worsened. Findings include abnormal foveal contour, intraretinal fluid. [id number] History of Present illness Narrative* Demetri Frank MD - 06/26/2023 4:27 PM EDT Longstanding PDR OU, DME, mac ischemia OU Sp PRP OU, Repeated injections - last 10/2022 Did not notice any real improvement with injections [place] [id number] Vision worse per pt A/P 1. DM [...] OU OCT mac OU documented in this [id number] Evaluation note* Encounter Date Diagnosis Assessment Notes [...] medication. May, Muscle spasm (ICD-10 - M62.838) [employer] Other 07-06-2023 Progress note Author [facility]chi [facility] April 18, 2023 10:57am Note Date/Time April 18, 2023 10:57 am [facility] [address] [place] [address] Nephrology Progress Note Signed Patient: Chandler Minor MR#: [id number] : 1970 Acct:[id number] Age/Sex: 52 / M Adm Date: 3 Loc: 3T Room: [address] [place] [address] Type: ADM IN Attending Dr: Kameron Dos Santos DO Copies to: ~ Date of Service: 04/18/2023 Subjective Subjective Narrative: Mr. Minor is a 52-year-old white gentleman with history of DM 2, HTN, COPD and CKD stage III s/p right BKA. Patient was transferred from [facility] forelevated creatinine above the baseline 3.26 [...] the last 2 weeks. He presented to [facility] with generalized weakness. Creatinine was found to be 3.26 mg/dL as stated above. Patient was given 1 L of IV fluid and was transferred to [facility] for further evaluation. Patient denied any chest [...] 10 Mg Tablet) 10 mg PO DAILY [facility] Stop: 04/15/24 13:39 Last Admin: 04/18/23 09:28 Dose: 10 mg Atorvastatin Calcium (Atorvastatin 40 Mg Tablet) 40 mg PO QPM [facility] Stop: 04/15/24 20:59 Last Admin: 04/17/23 20:42 Dose: 40 mg Bumetanide (Bumetanide 1 Mg Tablet) 1 mg PO BID@0800,1600 [facility] Stop: 04/16/24 15:59 Last Admin: 04/18/23 09:28 Dose: 1 mg Dextrose (Dextrose 50% In Water 25 Gm/50 Ml Syringe) 0 gm IV-PUSH PRN PRN PRN Reason: Hypoglycemia Stop: 04/15/24 05:42 Enoxaparin Sodium (Enoxaparin 40 Mg/0.4 Ml Syringe) 40 mg SUBCUT DAILY@10 [facility] Stop: 04/15/24 09:59 Last Admin: 04/18/23 [...] Units/3 Ml Insuln.Pen) 0 units SUBCUT TID.WM.HS [facility]; Protocol Stop: 04/15/24 07:59 Last Admin: 04/18/23 09:29 Dose: Not Given Insulin Glargine (Insulin Glargine 300 Units/3 Ml Insuln.Pen) 42 units SUBCUT BID [facility] Stop: 04/15/24 08:59 Last Admin: 04/18/23 09:29 Dose: 42 units Levothyroxine Sodium (Levothyroxine 25 Mcg Tablet) 25 mcg PO DAILY.629 [facility] Stop: 04/15/24 06:29 Last Admin: 04/18/23 [...] 15 Gm Bottle) 1 applic TOPICAL BID [facility] Last Admin: 04/18/23 09:29 Dose: 1 applic Pantoprazole Sodium (Pantoprazole 40 Mg Tablet.Dr) 40 mg PO DAILY [facility] Stop: 04/15/24 08:59 Last Admin: 04/18/23 09:28 Dose: 40 mg Potassium Chloride (Potassium Chloride Er 20 Meq Tab.Er.Prt) 40 meq PO DAILY PRN PRN Reason: Hypokalemia Stop: 04/15/24 13:39 Tamsulosin HCl (Tamsulosin 0.4 Mg Cap.Er.24h) 0.4 mg PO DAILY [facility] Stop: 04/16/24 14:04 Last Admin: 04/18/23 09:28 Dose: 0.4 mg Trazodone HCl (Trazodone 50 Mg Tablet) 50 mg PO [facility] Stop: 04/16/24 21:59 Last Admin: 04/17/23 21:52 [...] <Electronically signed by MD Nkechi Kc> 04/18/23 1051 [facility] Work Phone: 1(197) 776-907007-05-2023 Progress note Author Kameron Dos Santos [facility] April 17, 2023 4:48pm Note Date/Time April 17, 2023 4:42p m [facility] [address] [place] [address] Hospitalist Progress Note Signed Patient: Chandler Minor MR#: [id number] : 1970 Acct:[id number] Age/Sex: 52 / M Adm Date: 3 Loc: Room: [address] [place] [address] Type: ADM IN Attending Dr: Kameron Dos [...] by Kameron Dos Santos DO> 04/17/23 1648 [facility] Work Phone: [phone]) 600-961507-05-2023 Consult note Author Nkechi Kc [facility] April 17, 2023 11:20am Note Date/Time April 17, 2023 11:04 am [facility] [address] [place] [address] Nephrology Consult Note Signed Patient: Chandler Minor MR#: [id number] : 1970 Acct:[id number] Age/Sex: 52 / M Adm Date: 3 Loc: Room: [address] [place] [address] Type: ADM IN Attending Dr: Kameron Dos [...] s/p right BKA. Patient was transferred from [facility] forelevated creatinine above the baseline 3.26 [...] the last 2 weeks. He presented to [facility] with generalized weakness. Creatinine was found to be 3.26 mg/dL as stated above. Patient was given 1 L of IV fluid and was transferred to [facility] for further evaluation. 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) Family History Other Diabetes mellitus, type 2 [...] 10 Mg Tablet) 10 mg PO DAILY [facility] Stop: 04/15/24 13:39 Last Admin: 04/17/23 [...] 300 Units/3 Ml Insuln.Pen) 0 units SUBCUT TID..[facility]; Protocol Stop: 04/15/24 07:59 Last Admin: 04/17/23 07:51 Dose: Not Given Insulin Glargine (Insulin Glargine 300 Units/3 Ml Insuln.Pen) 42 units SUBCUT BID [facility] Stop: 04/15/24 08:59 Last Admin: 04/17/23 09:14 Dose: Not Given Levothyroxine Sodium (Levothyroxine 25 Mcg Tablet) 25 mcg PO DAILY.0630 [facility] Stop: 04/15/24 06:29 Last Admin: 04/17/23 [...] 15 Gm Bottle) 1 applic TOPICAL BID [facility] Last Admin: 04/17/23 09:13 Dose: 1 applic Pantoprazole Sodium (Pantoprazole 40 Mg Tablet.Dr) 40 mg PO DAILY [facility] Stop: 04/15/24 08:59 Last Admin: 04/17/23 [...] Appearance Clear Urine pH 6.5 Ur Specific [place] 1.017 Urine Protein 300 H Urine Glucose [...] Jesu Reese M.D.04/16/2023 6:22 PM Dictation Location: [place] [address] Any impression(s) listed above is documentation that [...] <Electronically signed by MD Nkechi Kc> 04/17/23 8964 [facility] Work Phone: [phone]) 881-561707-04-2023 Progress note Author Kameron Dos Santos [facility] April 16, 2023 5:33pm Note Date/Time April 16, 2023 5:27p m [facility] [address] [place] [address] Progress Note Signed Patient: Chandler Minor MR#: [id number] : 1970 Acct:[id number] Age/Sex: 52 / M Adm Date: 3 Loc: Room: [address] [place] [address] Type: ADM IN Attending Dr: Kameron Dos [...] increased his diuretic recently. [facility]. It is noted that his [...] 17 22 Signed By: <Electronically signed by Kaemron Dos Santos DO> 04/16/23 1733 [facility] Work Phone: 1(206) 197-216107-04-2023 History and physical note Author Albert Woods [facility] April 16, 2023 5:29am Note Date/Time April 16, 2023 5:29a m [facility] [address] [place] [address] Hospitalist H&P Signed Patient: Chandler Minor MR#: [id number] : 1970 Acct:[id number] Age/Sex: 52 / M Adm Date: 3 Loc: Room: [address] [place] [address] Type: ADM IN Attending Dr: Kameron Dos Santos DO Copies to: DO Kmaeron Zuniga DO Shawn J Warner, DO~ HPI DATE OF EXAMINATION: 04/16/23 CHIEF COMPLAINT: Dehydration HISTORY OF PRESENT ILLNESS: Mr Minor is a 52 year old male with a past medical history of COPD, diabetes, hypertension, hypothyroidism, CKD stage III, status post right BKA who presents hospital today as a transfer from [facility] for FRANK. He states he was recently in a fluid overload state and he was already taking Bumex 1 mg twice daily and his engine wiper recently put him on metolazone 2.5 mg Saturday, he states once that was started he lost 19 pounds of water weight and roughly 2 weeks and he presented to the hospital today with chief complaint of weakness and chest pain at [facility]. [facility] was found to have FRANK with his creatinine 3.26. He was given 1 L of IV fluids at [facility] and then he was subsequently transferred here. 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 Received 2 more liters of IV [...] signed by Albert Woods DO> 04/16/23 0529 [facility] Work Phone: [phone]) 542-505906-28-2023 Evaluation note* Encounter Date Diagnosis Assessment Notes Treatment Notes Treatment Clinical Notes Mar, Cristobal hy kid w cr kid I-IV (ICD-10 - I12.9) [employer] Other 05-23-2023 NotePROCEDURE: XR CHEST 1 V [...] by: JUAN LUIS HAND Date: 2023-03-05 07:12[facility]dia[facility]-2241 NoteRight Eye Quality was good. Scan locations included subfoveal. Progression has worsened. Findings include intraretinal fluid. Left Eye Quality was good. Scan locations included subfoveal. Progression has worsened. Findings include intraretinal fluid. Notes Atrophy and IRF OU Brady Lowry MD [id number] Instructions* Patient Instructions* Maddie Lau MD - [...] appointment for next Saturday. documented in this [id number] History of Present illness Narrative* Maddie Lau [...] Seen with Dr. Lowry documented in this [id number] History of Present illness Narrative* Brady Lowry [...] note. Brady Lowry MD documented in this [id number] NoteTime Out Confirmed correct patient, procedure, site, [...] fill in OU Inferior VH limiting uptake [id number] NoteRight Eye Quality was good. Scan locations included subfoveal. Progression has been stable. Findings include abnormal foveal contour. Left Eye Quality was good. Scan locations included subfoveal. Progression has been stable. Findings include abnormal foveal contour. Notes Atrophy/thin retina [id number] History of Present illness Narrative * Hema [...] OU OCT mac OU documented in this [id number] NoteRight Eye Quality was good. Scan locations included subfoveal. Progression has improved. Findings include abnormal foveal contour, intraretinal fluid. Left Eye Quality was good. Scan locations included subfoveal. Progression has improved. Findings include abnormal foveal contour, intraretinal fluid. [id number] History of Present illness Narrative* Demetri Frank [...] Color photos ou PRP documented in this [id number] NoteHNO ID: [id number] Author: Vj Haddad II, OD Service: ? Author Type: MATERIAL LIAISON Type: Progress Notes Filed: 09/03/2022 5:22 PM Note Text: Assessment and Plan Z02.71 Disability examination (primary encounter diagnosis) Comment: Patient understands that today's examination is for purposes of disability determination only. Patient will continue all ongoing care with previously established care givers. 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, unspecified whether termite inspector insulin use (HCC) E11.3592 Type 2 diabetes mellitus with proliferative diabetic retinopathy of left eye without macular edema, unspecified whether termite inspector insulin use (HCC) Comment: Last intraocular injection [...] of its relevant components. Vj Haddad II, [facility] Instructions* Patient Instructions* Vj Haddad II, OD - 09/03/2022 5:11 PM EST documented in this [facility]11-21-2022 History of Present illness Narrative* Vj Haddad II, OD - 09/03/2022 5:08 PM EST Assessment and Plan Z02.71 Disability examination (primary encounter diagnosis) Comment: Patient understands that today's examination is for purposes of disability determination only. Patient will continue all ongoing care with previously established care givers. 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, unspecified whether termite inspector insulin use (HCC) E11.3592 Type 2 diabetes mellitus with proliferative diabetic retinopathy of left eye without macular edema, unspecified whether termite inspector insulin use (HCC) Comment: Last intraocular injection [...] Vj Haddad II, OD [facility] Evaluation note* Encounter Date Diagnosis Assessment Notes Treatment Notes Treatment Clinical Notes Aug, Type 2 diabetes mellitus with hyperglycemia (ICD-10 - E11.65) [employer] Other 11-14-2022 Evaluation note* Encounter Date Diagnosis Assessment Notes Treatment Notes Treatment Clinical Notes Aug, Type 2 diabetes mellitus with hyperglycemia (ICD-10 - E11.65) [employer] Other 08-03-2022 Evaluation note* Encounter Date Diagnosis Assessment Notes Treatment Notes Treatment Clinical Notes May, Type 2 diabetes mellitus with hyperglycemia (ICD-10 - E11.65) 1. Uncontrolled, a Type 2 diabetes with A1c of 8.6%. 2. Blood glucose levels improved from last visit 01/10/22 a1c was 15.8%. According to [employer] g6 cgm download 05/03/22-05/16/22: Avg glucose 184. [...] would need stopped. Pt agreeable to starting tyspmjjpp77yr once daily 3. 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 Progression has worsened. Findings include intraretinal fluid, subretinal fluid, abnormal foveal contour. Left Eye Quality was good. Progression has worsened. Findings include intraretinal fluid, subretinal fluid, abnormal foveal contour.[id number] History of Present illness Narrative* Demetri Frank [...] to ED if symptoms recur precert eylea crg865 today F/u 4-6 weeks shahla/vivian Dilate ou Oct ou Color photos ou documented in this [id number] Telephone encounter Note* Telephone Encounter - Agustin Munguia MD - 03/19/2022 9:20 AM EDT Already has appt this 03/21 Confirmed [facility] Work Phone: 1(220) 400-901006-06-2022 Miscellaneous Notes* Telephone Encounter - Agustin Munguia MD - 03/19/2022 9:20 AM EDT Already has appt this 03/21 Confirmed appt with family * Telephone Encounter - Rita Gonzalez - 03/19/2022 8:05 AM EDT Pt's family called back in regarding this issue. They are very frustrated because they never received a call from anyone with an appt date/time. They request a call at [phone] to proceed. She states she will call back in tomorrow should she not hear back. Thank you. * Telephone Encounter - Ebonie Huizar - 03/07/2022 10:43 AM EDT Family calling in on behalf of pt - regarding above mssgs. Asking to be rescheduled for sooner appt when possible. Best contact # [phone] Thank you! * Telephone Encounter - Rita [...] he cannot see. Please contact pt at [phone] to discuss/advise. Thank you. documented in this [id number] Miscellaneous Notes* Telephone Encounter - Rita Gonzalez - 03/19/2022 8:05 AM EDT Pt's family called back in regarding this issue. They are very frustrated because they never received a call from anyone with an appt date/time. They request a call at [phone] to proceed. She states she will call back in tomorrow should she not hear back. Thank you. * Telephone Encounter - Ebonie Huizar - 03/07/2022 10:43 AM EDT Family calling in on behalf of pt - regarding above mssgs. Asking to be rescheduled for sooner appt when possible. Best contact # [phone] Thank you! * Telephone Encounter - Rita [...] he cannot see. Please contact pt at [phone] to discuss/advise. Thank you. documented in this [id number] Telephone encounter Note* Telephone Encounter - Rita Gonzalez - 03/19/2022 8:05 AM EDT Pt's family called back in regarding this issue. They are very frustrated because they never received a call from anyone with an appt date/time. They request a call at [phone] to proceed. She states she will call back in tomorrow should she not hear back. Thank you. [id number] Evaluation note* Encounter Date Diagnosis Assessment Notes Treatment Notes Treatment Clinical Notes February, Other Summary of Visi t: (A) reviewed which foods have carbs and which are low carb (B) basic carb counting (C) treatment of hypoglycemia Patient set the following goals: - practice carb counting and dosing insulin accurately [employer] Other 05-25-2022 Evaluation note* Encounter Date Diagnosis Assessment Notes Treatment Notes Treatment Clinical Notes February, Type 2 diabetes mellitus with hyperglycemia (ICD-10 - E11.65) [employer] Other 05-25-2022 Telephone encounter Note* Telephone Encounter - Ebonie Huizar - 03/07/2022 10:43 AM EDT Family calling in on behalf of pt - regarding above mssgs. Asking to be rescheduled for sooner appt when possible. Best contact # [phone] Thank you! [id number] Miscellaneous Notes* Telephone Encounter - Ebonie Huizar - 03/07/2022 10:43 AM EDT Family calling in on behalf of pt - regarding above mssgs. Asking to be rescheduled when possible. Best contact # [phone] Thank you! * Telephone Encounter - Rita [...] he cannot see. Please contact pt at [phone] to discuss/advise. Thank you. documented in this [id number] Miscellaneous Notes* Telephone Encounter - Ebonie Huizar - 03/07/2022 10:43 AM EDT Family calling in on behalf of pt - regarding above mssgs. Asking to be rescheduled for sooner appt when possible. Best contact # [phone] Thank you! * Telephone Encounter - Rita [...] he cannot see. Please contact pt at [phone] to discuss/advise. Thank you. documented in this [id number] Evaluation note* Encounter Date Diagnosis Assessment Notes Treatment Notes Treatment Clinical Notes February, Type 2 diabetes mellitus with hyperglycemia (ICD-10 - E11.65) [employer] Other 05-02-2022 Telephone encounter Note* Telephone Encounter [...] he cannot see. Please contact pt at [phone] to discuss/advise. Thank you. [id number] Miscellaneous Notes* Telephone Encounter - Rita Gonzalez [...] he cannot see. Please contact pt at [phone] to discuss/advise. Thank you. documented in this [id number] Evaluation note* Encounter Date Diagnosis Assessment Notes [...] levemir to 40 units bid. Payton PAUL, SUBWAY CONDUCTOR-C [facility] [employer] Other 04-15-2022 Evaluation note* Encounter Date Diagnosis [...] educating the patient by Dolores Osborne RN. [employer] Other 04-11-2022 Evaluation note* Encounter Date Diagnosis Assessment Notes Treatment Notes Treatment Clinical Notes Jan, Type 2 diabetes mellitus with hyperglycemia (ICD-10 - E11.65) 1. Uncontrolled, a Type 2 diabetes with A1c of 15.8% 01/10/2022 [facility] 2. Blood glucose levels above target. Recommend [...] to 1.8mg dose. Recommend f/u apt with credit checker for application of dexcom g6- he is to bring his phone to see if compatible for julia for dexcom g6- if not compatible will recommend he wear professional dexcom blinded x10 days. He was given log book instructed to log meals, glucose, insulin dosing and bring to f/u apt for review with credit checker. Also recommend he see RD to assist with carb counting. He is interested in insulin pump. He was also given phone number/website to [employer] odessa, encouraged to call for apt. Will send [employer] talking meter- meter blood sampling for strip [...] or diabetes medication issues. 6. Prescriptions: Uses [employer] [place]. 7. F/u with credit checker 2 weeks application of dexcom- see above. Referral to RD for instruction on carb counting- pt interested in insulin pump. 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 Pt. currently using insulin injections >3 times/day with insulin to carb ratio/corrective factor and requires frequent self adjustment of insulin based on carbohydrate intake, physical activity blood glucose monitoring. A CGM would improve ease of access to glucose results and reduce risk of hypoglcyemia/hyperg lycemia. [employer] Other 04-01-2022 Hospital Discharge instructionsAmbulatory Orders* Initiate [...] Mepilex border foam. DISCHARGE INSTRUCTIONS FOR CARDIAC FIBERGLASS BOAT PARTS FINISHER PHONE NUMBER OF YOUR PHYSICIAN: [phone] PROCEDURE: Heart Cath The following instructions have [...] cold, numb, blue or white, call the bottle washer machine immediately. 4. ACTIVITY: You are advised to [...] bottle, follow the instructions on the bottle. [facility] is not responsible for incorrect prescription information provided by the patient during their visit. Do not stop your medications without consulting your health care provider. Please take the list with you to your next doctor's appointment.[facility] Work Phone: 1(432) 795-803103-31-2022 Progress note Author Jonn Wallace [facility] January 11, 2022 4:57pm Note Date/Time January 11, 2022 4:4 8pm [facility] [address] [place] [address] Hospitalist Progress Note Signed Patient: Chnadler Minor MR#: [id number] : 1970 Acct:[id number] Age/Sex: 51 / M Adm Date: 2 Loc: Room: [address] [place] [address] Type : ADM INOo Attending Dr: Jonn [...] <Electronically signed by Jonn Wallace MD> 01/11/22 8144 [facility] Work Phone: 1(100) 509-256603-31-2022 Consult note Author W Torsten [facility] January 11, 2022 2:30pm Note Date/Time January 11, 2022 2:3 0pm [facility] [address] [place] [address] Cardiology Consult Note Signed Patient: Chandler Minor MR#: [id number] : 1970 Acct:[id number] Age/Sex: 51 / M Adm Date: 2 Loc: 4 Room: [address] [place] [address] Type : ADM IN Attending Dr: Jonn [...] or illicit drug use. Denies personal h/o [place], HF, bleeding disorder. 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03-31-[address] [facility]03-31-2022 History and physical note Author Jonn Wallace [facility] January 11, 2022 11:49am Note Date/Time January 11, 2022 11: 49am [facility] [address] [place] [address] Hospitalist H&P Signed Patient: Chandler Minor MR#: [id number] : 1970 Acct:[id number] Age/Sex: 51 / M Adm Date: 2 Loc: Room: [address] [place] [address] Type : ADM IN Attending Dr: Jonn [...] abuse Surgical History S/P percutaneous transluminal angioplasty (RETURNS CLERK) Family History Other Diabetes mellitus, type 2 [...] % (Auto) 12.3 % (.) 01/10/22 15:00 [place] % (Auto) 4.8 % (.) 01/10/22 15:00 Eos % (Auto) 4.2 % (.) 01/10/22 15:00 Baso % (Auto) 1.2 % (.) 01/10/22 15:00 Neut # (Auto) 7.6 x10E3/uL (1.8-7.7) 01/10/22 15:00 Lymph # (Auto) 1.2 x10E3/uL (1.00-4.8) 01/10/22 15:00 [place] # (Auto) 0.5 x10E3/uL (0.0-0.8) 01/10/22 15:00 [...] above. Documented By: Jonn Wallace MD 2 [id number] Signed By: <Electronically signed by Jonn Wallace MD> 01/11/22 3650 [facility] Work Phone: [phone] Evaluation note* Encounter Date Diagnosis Assessment Notes [...] site. Needs emergent attention should redness/ulcer develop. [employer] Other 11-16-2021 Evaluation note* Encounter Date Diagnosis [...] writting by [facility] document [employer] Other 11-01-2021 History general Narrative - Reported* [...] Hospitalization History Hypertensive emergency, chest pain 01/10/2022 [employer] Other 11-01-2021 History general Narrative - Reported* [...] chest pain 01/10/2022 Hospitalization History CHF, CELLULTIS, [employer] Other 10-07-2021 Evaluation note* Encounter Date Diagnosis [...] Jul, HTN (hypertension) (ICD-10 - I10) Jul, detention current us e of insulin (ICD-10 - Z79.4) [employer] Other 09-27-2021 Evaluation note* Encounter Date Diagnosis [...] we can consider him for a prosthetic. [employer] Other Evaluation noteNo assessment information available [facility] Work Phone: Evaluation note* Diagnosis Onset Date Resolution Status Chest pain acute Hx of right BKA acute Hypertensive emergency acute Diabetes mellitus chronic Tobacco abuse chronic [facility] Work Phone: Evaluation note* Diagnosis Proliferative diabetic retinopathy of both eyes associated with type 2 diabetes mellitus, unspecified proliferative retinopathy type (HCC)- Primary documented in this encounter [facility] [employer] Other Evaluation note* Diagnosis Disability examination- Primary Issue of medical certificate for disability examination 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, unspecified whether termite inspector insulin use (HCC) Type 2 diabetes mellitus with proliferative diabetic retinopathy of left eye without macular edema, unspecified whether care home insulin use (HCC) Myopia, bilateral Myopia Regular astigmatism, bilateral Presbyopia [facility] Proliferative diabetic retinopathy of both [...] 30-59 ml/min chronic Diabetes mellitus chronic Hypertension [facility] Work Phone: Evaluation note* Diagnosis [...] d Hypoglycemia resolved Hypothermia resolved Leukocytosis resolved [facility] Work Phone: Evaluation note* Diagnosis Proliferative diabetic [...] Below knee amputation Hospitalization History see above [employer] Other Hospital Discharge [facility] Work Phone: Summary Purpose Family [...] To Contact Closed Radiology Diagnoses 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) Procedures CTA ABDOMINAL AORTA [place] [address] [place] [address] Specialty Diagnoses / Procedures Referred By Contac t Referred To Contact Infusion Services Diagnoses Proliferative diabetic retinopathy of both eyes associated with type 2 diabetes mellitus, unspecified proliferative retinopathy type (HCC) Demetri Frank MD [address] [place] [address] S DIRECTOR OF STRATEGIC [employer]NERSHIPS [employer]CILLARY [address] [place] [address] Referral ID Status Reason Start Date Expiration Date V isits Requested Visits Authorized [id number] Pending Review 03/21/2022 03/21/2023 14 14 Question [...] intradermal (PPD) (CVX=96) Assessments Diagnosis 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) Atherosclerosis of sycuan arteries of the extremities with gangrene Diagnosis [...] loss Fluid Accumulation: No significant fluid accumulation Call Center Agent Strength: Not Performed Estimated Daily Nutrient Needs: Energy (kcal): 4633-5545 kcals @ 13-15 kcal/kg; Weight Used for Energy Requirements: Admission(133 kg) Protein (g): 84-97 g protein @ 1.3-1.5 g/kg IBW; Weight Used for Protein Requirements: [place](65 kg) Fluid (ml/day): ~1950 @ 30 ml/kg [...] 214 lb (97.1 kg)((2019); 236# ( 11/03)) [place] Body Weight: 142 lbs; BMI: 47 BMI [...] AM EDT Wound Ostomy Continence Nursing This [facility] Nurse asked by Dr. Galarza and nursing [...] wound evaluation. No other needs from this [facility] Nurse at this time. documented in this [...] by the following consultants while admitted to [facility]: Consults: IP CONSULT TO VASCULAR SURGERY Significant Diagnostic Studies: Refer to chart Please refer to chart if no studies are shown here No results found. Discharge Medications: Chandler Minor Home Medication Instructions FLORENTIN:[id number] Printed on:12/29/20 1111 Medication Information amLODIPine (NORVASC) [...] daily Disposition: If discharged to Home, Any [facility] needs that were indicated and/or required as [...] most local grocery stores, pharmacies, and chain [employer]-stores. If you have any questions about your [...] Hospital Unit/Room#: W194/W194-01 Discharging Unit Phone Number: [phone] Emergency Contact: Extended Emergency Contact Information Primary Emergency Contact: Tiffanie Minor Relation: Child Preferred language: Sinhala Insurance Account Representative needed? No Secondary Emergency Contact: Suzan Minor Relation: Parent Preferred language: Sinhala Insurance Account Representative needed? No Past Surgical History: Past Surgical [...] Assisted Dressing Assisted Toileting Assisted Feeding Independent Train Reservation Clerk Assisted Med Delivery whole Wound Care Documentation [...] select all that are sent with patient): {[facility] Belongings:[id number]:::0} RN SIGNATURE: CASE MANAGEMENT/SOCIAL WORK SECTION Inpatient Status Date: Readmission Risk Assessment Score: Readmission Risk Risk of Unplanned Readmission: 15 Discharging to Facility/ Agency Name: [facility] Address:[address] [place] [address] Fax: Dialysis Facility (if applicable) Name: Address: Dialysis Schedule: Phone: Fax: Agronomy Teacher/Singeing Torch Operator signature: PHYSICIAN SECTION Prognosis: Good Condition at Discharge: Stable Rehab Potential (if transferring to Rehab): Recommended Labs or Other Treatments After Discharge: Close follow up with infectious disease; close follow up with vascular surgery; close follow up with wound care center Physician Certification: I certify the above information and transfer of Chandler Mionr is necessary for the continuing treatment of the diagnosis listed and that he requires Prison Facilityfor less 30 days. Update Admission H&P: [...] who returns following recent non- ST elevation [place], cardiac catheterization revealed severe LAD disease throughout [...] content) DATE CREATED AUTHOR 01/16/2019 Lalo Mariscal [facility] ical Center DATE CREATED AUTHOR AUTHOR'S ORGANIZ ATION 12/30/2020 [facility] edical Center DATE CREATED AUTHOR AUTHOR'S ORGANIZ ATION 03/08/2022 [employer] DATE CREATED AUTHOR AUTHOR'S ORGANIZ ATION 09/04/2022 [facility] DATE CREATED AUTHOR AUTHOR'S ORGANIZ ATION 03/23/2023 [facility] DATE CREATED AUTHOR AUTHOR'S ORGANIZ ATION 09/19/2023 [facility] dical Center SOM DATE CREATED AUTHOR AUTHOR'S ORGANIZ ATION 10/18/2023 [facility] DATE CREATED AUTHOR AUTHOR'S ORGANIZ ATION 10/20/2023 [facility] DATE CREATED AUTHOR AUTHOR'S ORGANIZ ATION 10/23/2023 [facility] Reason for Visit (unrecogniz ed section and content) Status Reason Specialty Diagnoses / Procedures Referre d By Contact Referred To Contact Closed Radiology Diagnoses 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) Procedures CTA ABDOMINAL AORTA W [place]IL[place] [address] [place] [address] Status Reason Specialty Diagnoses / Procedures Referre d By Contact Referred To Contact [facility] Reason Comments Other sent from cardiac, n eeds to be admitted, vascular issue rle Status Reason Specialty Diagnoses / Procedures Referred By Contact Referred To Contact Diagnoses [place] [address] [place] [address] [facility] Reason Onset Date Comments Other sympt/complt of eye 02/12/2022 Reason Comments Diabetic Eye Exam Reason Comments Disability Evaluation Specialty Diagnoses / Procedures Referred By Contac t Referred To Contact Optometry / OPHTHALMOLOGY Diagnoses Dickinson Disability Exam (Case#[id number]) Procedures NEW ADULT Self Vj Haddad II, OD [address] [place] [address] Referral ID Status Reason Start Date Expiration Date Visits Re quested Visits Authorized [id number] Closed 09/03/2022 09/03/2022 1 1 Reason Comments [...] Admit Provider, Attending Edinson terrazas Active Shavonne Mittal RN Other Provider Active Leann Sarmiento DO Other Provider Active Madeline Valdez MD Other Provider Active Jaylen Brooks [...] Active Mika Das APRN Attending Provider Active Academic Affairs Director Relationship Specialty Start Date End Date Rober Lopes MD Formerly named [facility] [place] [address] Physician Ophthalmology 07/19/20 Raul Chamberlain MD [address] [place] [address] Resident Ophthalmology 07/19/20 Agustin Hampton MD [address] [place] [address] Resident Ophthalmology 11/18/21 Academic Affairs Director Relationship Specialty Start Date End Date Rober Lopes MD [address] [place] [address] Physician Ophthalmology 07/19/20 Raul Chamberlain MD [address] [place] [address] [place] [address] Resident Ophthalmology 07/19/20 Agustin Hampton MD [address] [place] [address] Resident Ophthalmology 11/18/21 Academic Affairs Director Relationship Specialty Start Date End Date Rober Lopes MD [address] [place] [address] Physician Ophthalmology 07/19/20 Raul Chamberlain MD [address] [place] [address] [place] [address] Resident Ophthalmology 07/19/20 Agustin Hampton MD [address] [place] [address] Resident Ophthalmology 11/18/21 Academic Affairs Director Relationship Specialty Start Date End Date Rober Lopes MD [address] [place] [address] 10363 Physician Ophthalmology 07/19/20 Raul Chamberlain MD [address] [place] [address] [place] [address] Resident Ophthalmology 07/19/20 Agustin Hampton MD [address] [place] [address] 269[address] Resident Ophthalmology 11/18/21 Academic Affairs Director Relationship Specialty Start Date End Date Rober Lopes MD [address] [place] [address] 28520 Physician Ophthalmology 07/19/20 Raul Chamberlain MD [address] [place] [address] [place] [address] Resident Ophthalmology 07/19/20 Agustin Hampton MD [address] [place] [address] 13[address] Resident Ophthalmology 11/18/21 Team Status: Inactive Member Role Status Juan Tenorio , DO Primary Care Provider Active Sinan Holly , DO Emergency Provider Active Suzan Bennett MD RES Active Academic Affairs Director Relationship Specialty Start Date End Date Rober Lopes MD [address] [place] [address] Physician Ophthalmology 07/19/20 Raul Chamberlain MD [address] [place] [address] [place] [address] Resident Ophthalmology 07/19/20 Agustin Hampton MD [address] [place] [address] 28892 Resident Ophthalmology 11/18/21 Demetri Frank MD [address] [place] [address] 17210 Physician Ophthalmology 04/14/22 Academic Affairs Director Relationship Specialty Start Date End Date Rober Lopes MD [address] [place] [address] 80269 Physician Ophthalmology 07/19/20 Raul Chamberlain MD [address] [place] [address] [place] [address] Resident Ophthalmology 07/19/20 Agustin Hampton MD [address] [place] [address] 38901 Resident Ophthalmology 11/18/21 Demetri Frank MD [address] [place] [address] 95407 Physician Ophthalmology 04/14/22 Academic Affairs Director Relationship Specialty Start Date End Date Rober Lopes MD [address] [place] [address]693 Physician Ophthalmology 07/19/20 Raul Chamberlain MD [address] [place] [address] [place] [address] Resident Ophthalmology 07/19/20 Agustin Hampton MD [address] [place] [address] Resident Ophthalmology 11/18/21 Demetri Frank MD [address] [facility] [place] [address] Physician Ophthalmology 04/14/22 Academic Affairs Director Relationship Specialty Start Date End Date Rober Lopes MD [address] [place] [address] Physician Ophthalmology 07/19/20 Raul Chamberlain MD [address] [place] [address] [place] [address] Resident Ophthalmology 07/19/20 Agustin Hampton MD [address] [place] [address] Resident Ophthalmology 11/18/21 Demetri Frank MD [address] [facility] [place] [address] Physician Ophthalmology 04/14/22 Team Status: Inactive Member Role Status Juan Tenorio , DO Primary Care Provider Active Kameron Dos Santos , DO Attending Provider Active Albert Woods , DO Admit Provider Active Nkechi Kc MD Other Provider Active Academic Affairs Director Relationship Specialty Start Date End Date Rober Lopes MD [address] [place] [address] Physician Ophthalmology 07/19/20 Raul Chamberlain MD [address] [place] [address] Resident Ophthalmology 07/19/20 Agustin Hampton MD [address] [place] [address] Resident Ophthalmology 11/18/21 Demetri Frank MD [address] [place] [address] Physician Ophthalmology 04/14/22 Team Status: Active Member [...] Team Status: Inactive Member Role Status Dates Christopher Santiago , [...] Active Harjeet Ruelas MD Attending Provider Active Academic Affairs Director Relationship Specialty Start Date End Date Rober Lopes MD [address] [place] [address] Physician Ophthalmology 07/19/20 Raul Chamberlain MD [address] [place] [address] Resident Ophthalmology 07/19/20 Agustin Hampton MD [address] [place] [address] Resident Ophthalmology 11/18/21 Demetri Frank MD [address] [place] [address] Physician Ophthalmology 04/14/22 Academic Affairs Director Relationship Specialty Start Date End Date Rober Lopes MD [address] [place] [address] Physician Ophthalmology 07/19/20 Raul Chamberlain MD [address] [place] [address] Resident Ophthalmology 07/19/20 Agustin Hampton MD [address] [place] [address] Resident Ophthalmology 11/18/21 Demetri Frank MD [address] [place] [address] Physician Ophthalmology 04/14/22 Goals (unrecognized section and [...] or prosecute any alcohol or drug abuse patient.[facility] FOR RECORDS PERTAINING TO PATIENTS WHO ARE [...] BE BASED ON THE PRIMARY CLINICAL RECORDS. [facility] [employer] [facility]. provides no warranty or guarantee of the accuracy or completeness of information in this document.
== END 2023-10-25 09:55 | disposition home or self-care (01) ==
LOC: WC 09:55
PROVIDERS: PCP Family Medicine; Visit Provider Podiatrist Foot & Ankle Surgery
DX: E11.621 Type 2 diabetes mellitus with foot ulcer (principal); L97.422 Non-pressure chronic ulcer of left heel and midfoot with fat layer exposed
CPT/HCPCS: 11042

== ENCOUNTER 2023-11-28 15:52 | Observation (INO) | payer MEDICARE, SELFPAY ==
[2023-11-28] VITALS (29 sets, daily range): BP systolic 92–218; BP diastolic 68–97; PULSE 69–105; RESP 12–20; TEMP 36.6–36.8; O2SAT 96–100; BMI 34.4; BMI 35.6
--- NOTE | 2023-11-28 16:01 | XR_ITS ---
The [address] [address] Patient Name: KURTIS CHOUDHURY MRN: [id number] date: 1970 Sex: M Assigned Patient Location: ER Current Patient Location: ER Accession/Order Number: [id number] Exam Date: 11/28/2023 16:11 Report Date: 11/28/2023 17:07 At the request of: JORJE TORO Procedure: XR chest 1V ONE-VIEW CHEST RADIOGRAPH, 11/28/2023 4:11 PM EST COMPARISON: Chest, 04/15/2023. CLINICAL HISTORY: Weak/distal sternal chest pain. Patient was unresponsive for 1 to 2 minutes. Patient awake and responsive in the ER and has not taken diabetic medication. FINDINGS: No acute cardiopulmonary disease. No pulmonary edema, pneumothorax, or pleural effusion. Normal heart size. No acute osseous abnormality. XR/XR chest 1V IMPRESSION: No acute abnormality identified. Electronically authenticated by: Sindhu SOTO Date: 11/28/2023 17:07
--- NOTE | 2023-11-28 16:01 | ECG_ITS ---
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
--- NOTE | 2023-11-28 16:02 | CT_ITS ---
The [address] [address] Patient Name: KURTIS CHOUDHURY MRN: [id number] date: 1970 Sex: M Assigned Patient Location: ER Current Patient Location: ER Accession/Order Number: [id number] Exam Date: 11/28/2023 16:15 Report Date: 11/28/2023 16:42 At the request of: JORJE TORO Procedure: CT stroke head/brain wo con EXAM: CT stroke head/brain wo con HISTORY: Transient loss of consciousness. TECHNIQUE: Axial CT scans through the head were obtained without IV contrast administration. Dose reduction techniques were achieved by using: automated exposure control and/or adjustment of mA and /or kV according to patient size and/or use of iterative reconstruction technique. COMPARISON: 07/31/2022. FINDINGS: The cerebral hemispheres have normal white and andrew matter and corticomedullary differentiation. The brainstem appears normal. 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 The ventricular system and cortical sulci are normal for the patient's age. No area of abnormal mass-effect or edema or intracranial hemorrhage. The visualized orbits show no abnormal mass. The visualized paranasal sinuses show no air-fluid level. Mastoid air cells are clear. CT/CT stroke head/brain wo con IMPRESSION: No acute intracranial process. 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 Electronically authenticated by: LISA DURAN Date: 11/28/2023 16:42
[2023-11-28 16:34] LABS: Basophils Percent Auto 0.3 % (0.2-2.0); Eosinophils Absolute Auto 0.2 10^3/uL (0.0-0.7); Eosinophils Percent Auto 1.7 % (0.9-7.0); Hematocrit 33.2 % (42.0-54.0); Hemoglobin 11.5 g/dL (14.0-18.0); Immature Granulocytes Abs Auto 0.06 10^3/uL (0.00-0.03); Immature Granulocytes Pct Auto 0.7 % (0.0-0.5); Lymphocytes Absolute Auto 1.3 10^3/uL (1.2-3.8); Mean Corpuscular HGB Conc 34.6 g/dL (29.9-35.2); Mean Corpuscular Hemoglobin 31.7 pg (25.9-34.0); Mean Corpuscular Volume 91.5 fL (80.0-94.0); Monocytes Absolute Auto 0.6 10^3/uL (0.3-0.8); Monocytes Percent Auto 6.7 % (1.7-12.0); Neutrophils Absolute Auto 6.8 10^3/uL (1.4-6.5); Neutrophils Percent Auto 76.6 % (43.0-75.0); Platelet Count 217 10^3/uL (150-450); Red Blood Count 3.63 10^6/uL (4.70-6.10); Red Cell Distribution Width 11.7 % (11.0-15.0); White Blood Count 8.9 10^3/uL (4.0-11.0)
[2023-11-28 16:44] LABS: Anion Gap 16.6; BUN Creatinine Ratio 18.4; Carbon Dioxide 24.3 mmol/L (21.0-32.0); Chloride 90 mmol/L (98-107); Estimated GFR (African America 25 (>=60); Estimated GFR (Non-African Ame 21 (>=60); Potassium 4.9 mmol/L (3.5-5.1); Sodium 126 mmol/L (136-145); Troponin I High Sensitivity 26.5 pg/mL (4.0-76.1)
[2023-11-28 16:46] LABS: Ethanol <3 mg/dL
[2023-11-28 16:48] LABS: Glucose 720 mg/dL (74-106)
[2023-11-28] MEDS: INSULIN REGULAR 300 UNITS/3 ML 10 UNIT IV (17:21)
--- NOTE | 2023-11-28 17:27 | XR_ITS ---
The [address] [address] Patient Name: KURTIS CHOUDHRUY MRN: [id number] date: 1970 Sex: M Assigned Patient Location: ER Current Patient Location: ED.MAIN Accession/Order Number: [id number] Exam Date: 11/28/2023 17:42 Report Date: 11/28/2023 18:10 At the request of: JORJE TORO Procedure: XR foot LT min 3V EXAM: XR foot LT min 3V HISTORY: Diabetic foot infection COMPARISON: Left foot x-ray 09/20/2023. TECHNIQUE: 3 views of left foot submitted. FINDINGS: Small plantar and dorsal calcaneal enthesophytes. No other osseous lesion. No lytic or blastic or destructive bone process. Adequate bone mineralization. No acute or healing fractures. Joints are well preserved throughout the foot and ankle articulations. No obvious soft tissue swelling or edema. No opaque foreign body. 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 XR/XR foot LT min 3V IMPRESSION: 1. No acute bone or joint findings. 2. No visualized acute soft tissue changes. 3. Other chronic findings as detailed above. Electronically authenticated by: MARIA ANTONIA HO Date: 11/28/2023 18:10
[2023-11-28 17:37] LABS: Acetone NEGATIVE (NEGATIVE)
--- NOTE | 2023-11-28 17:41 | ED.GENADUL1 ---
HPI - General Adult General Chief complaint: Neuro Symptoms/Deficit Stated complaint: CVA SYMPTOMS Time Seen by Provider: 11/28/23 15:55 Mode of arrival: Wheelchair History of Present Illness HPI narrative: 53-year-old male presents for weakness. He was standing in the kitchen helping to clean out the refrigerator when he developed weakness and he was not talking to his . He remained standing this entire time and did not pass out. He did not fall. There was no injury. No recent fever vomiting cough chest pain or shortness of breath. His blood sugar was found to be elevated. He has not been on any diabetes medications for months. Related Data Home Medications Medication Instructions Recorded Confirmed amlodipine 10 mg tablet 10 mg PO QDAY 04/15/23 04/15/23 bumetanide 1 mg tablet 1 mg PO QDAY 04/15/23 04/15/23 losartan 100 mg tablet 100 mg PO QDAY 04/15/23 04/15/23 metolazone 2.5 mg tablet 2.5 mg PO .3 times week 04/15/23 04/15/23 Previous Rx's Medication Instructions Recorded hydrocodone 5 mg-acetaminophen 325 1 tab PO Q6H PRN pain #8 tabs 05/21/23 mg tablet methocarbamol 750 mg tablet 750 mg PO TID PRN pain #20 tabs 05/21/23 Allergies Allergy/AdvReac Type Severity Reaction Status Date / Time promethazine [From Phenergan] AdvReac Mild Verified 05/21/23 16:15 Review of Systems ROS Narrative A ten point review of systems is negative except as noted above. PFSH PFSH Social History Smoking status: Current every day smoker Exam Narrative Exam Narrative: Nurses note and vital signs reviewed and patient is not hypoxic. General: The patient appears in no apparent respiratory distress. Patient is resting comfortably on cart. Skin: Warm, dry, no pallor noted. There is no rash noted. Head: Normocephalic, atraumatic Eye: Normal conjunctiva, no drainage, EOMI. PERRL Ears, Nose, Mouth, and Throat: oral mucosa is moist. Nares patent. Cardiovascular: Regular Rate and Rhythm Respiratory: Patient is in no distress, no accessory muscle use, lungs are clear to auscultation, no wheezing, rales or rhonchi Back: non-tender GI: Soft and nontender Musculoskeletal: He is status post right leg amputation. He has on the left medial foot and area of erythema. There is no open area or drainage. Neurological: He is awake and alert and oriented. Cranial nerves II through XII are intact. Upper and lower extremity strength is symmetric. Psychiatric: Cooperative Constitutional Vital Signs, click to edit/add: Last Vital Signs Temp 98.2 F 11/28/23 15:57 Pulse 75 11/28/23 15:57 Resp 16 11/28/23 15:57 BP 218/95 H 11/28/23 15:57 Pulse Ox 99 11/28/23 15:57 O2 Del Method Room Air 11/28/23 15:57 Course Vital Signs Vital signs: Vital Signs Temperature 98.2 F 11/28/23 15:57 Pulse Rate 75 11/28/23 15:57 Respiratory Rate 16 11/28/23 15:57 Blood Pressure 218/95 H 11/28/23 15:57 Pulse Oximetry 99 11/28/23 15:57 Oxygen Delivery Method Room Air 11/28/23 15:57 Temperature 98.2 F 11/28/23 15:57 Pulse Rate 75 11/28/23 15:57 Respiratory Rate 16 11/28/23 15:57 Blood Pressure 218/95 H 11/28/23 15:57 Pulse Oximetry 99 11/28/23 15:57 Oxygen Delivery Method Room Air 11/28/23 15:57 Medical Decision Making MDM Narrative Medical decision making narrative: NIH score is 0. I have no clinical suspicion of stroke. Blood sugar 720. No evidence of DKA. He was given IV insulin and is being given IV fluids. Podiatry has been consulted and I have spoken to Dr. Rivas and the patient is being admitted to ICU. He will be started on vancomycin and Zosyn because of the foot issue. There is no other source of an infection at this point. Differential Diagnosis Differential Diagnosis: Noncompliance, hyperglycemia, UTI, pneumonia Lab Data Lab results reviewed: Yes I reviewed the patient's lab results Labs: Lab Results 11/28/23 Range/Units 16:10 WBC 8.9 (4.0-11.0) 10^3/uL RBC 3.63 L (4.70-6.10) 10^6/uL Hgb 11.5 L (14.0-18.0) g/dL Hct 33.2 L (42.0-54.0) % MCV 91.5 (80.0-94.0) fL MCH 31.7 (25.9-34.0) pg MCHC 34.6 (29.9-35.2) g/dL RDW 11.7 (11.0-15.0) % Plt Count 217 (150-450) 10^3/uL MPV 12.0 (9.5-13.5) fL Neut % (Auto) 76.6 H (43.0-75.0) % Lymph % (Auto) 14.0 L (20.5-60.0) % [place] % (Auto) 6.7 (1.7-12.0) % Eos % (Auto) 1.7 (0.9-7.0) % Baso % (Auto) 0.3 (0.2-2.0) % Neut # (Auto) 6.8 H (1.4-6.5) 10^3/uL Lymph # (Auto) 1.3 (1.2-3.8) 10^3/uL [place] # (Auto) 0.6 (0.3-0.8) 10^3/uL Eos # (Auto) 0.2 (0.0-0.7) 10^3/uL Baso # (Auto) 0.0 (0.0-0.1) 10^3/uL Abs Immat Gran (auto) 0.06 H (0.00-0.03) 10^3/uL Imm/Tot Granulo (auto) 0.7 H (0.0-0.5) % Sodium 126 L (136-145) mmol/L Potassium 4.9 (3.5-5.1) mmol/L Chloride 90 L (98-107) mmol/L Carbon Dioxide 24.3 (21.0-32.0) mmol/L Anion Gap 16.6 BUN 58.0 H (7.0-18.0) mg/dL Creatinine 3.15 H (0.70-1.30) mg/dL Est GFR ( Amer) 25 L (>=60) Est GFR (Non-Af Amer) 21 L (>=60) BUN/Creatinine Ratio 18.4 Glucose 720 H* (74-106) mg/dL Calcium 9.0 (8.5-10.1) mg/dL Troponin I High Sens 26.5 (4.0-76.1) pg/mL Ethanol Quant <3 mg/dL Acetone, Qual Negative (NEGATIVE) Imaging Data Chest x-ray: Radiologist's impression: ITS Impressions Chest X-Ray 11/28/23 16:01 IMPRESSION: No acute abnormality identified. Electronically authenticated by: Sindhu SOTO Date: 11/28/2023 17:[address] 11/28/23 16:02 IMPRESSION: No acute intracranial process. 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 Electronically authenticated by: LISA DURAN Date: 11/28/2023 16:42 ECG Data Attestation: I personally reviewed and interpreted this ECG as follows: (EKG on my interpretation shows sinus rhythm with LVH and no acute changes) Critical Care Time Critical Care Time Critical Care Time: Yes Total Critical Care Time: 35 Attestation: Due to the high probability of sudden and clinically significant deterioration in the patient's condition he/she required the highest level of my preparedness to intervene urgently I provided critical care time including documentation time, medication orders and management, reevaluation, vital sign assessment, ordering and reviewing of lab tests, ordering and reviewing of x-ray studies, and admission orders. Aggregate critical care time is 35 minutes including only time during which I was engaged in work directly related to his/her care and did not include time spent treating other patients simultaneously. Discharge Plan Discharge Chief Complaint: Neuro Symptoms/Deficit Clinical Impression: Hyperglycemia, Noncompliance with medication regimen Patient Disposition: Admitted As Inpatient Time of Disposition Decision: 17:55 Condition: Good Prescriptions / Home Meds: No Action hydrocodone-acetaminophen 5-325 mg tablet 1 tab PO Q6H PRN (Reason: pain) Qty: 8 0RF Rx Instructions: DX: M54.5 methocarbamol 750 mg tablet 750 mg PO TID PRN (Reason: pain) Qty: 20 0RF bumetanide 1 mg tablet 1 mg PO QDAY metolazone 2.5 mg tablet 2.5 mg PO .3 times week Rx Instructions: Take 1 tablet by mouth 3 times a week, Saturday, Saturday, and Saturday amlodipine 10 mg tablet 10 mg PO QDAY losartan 100 mg tablet 100 mg PO QDAY Referrals: DONITA TENORIO [Primary Care Provider] - 1 week
[2023-11-28 17:47] LABS: Alanine Aminotransferase 25 U/L (16-63); Albumin Globulin Ratio 0.9; Albumin Level 3.5 g/dL (3.4-5.0); Alkaline Phosphatase 208 U/L (46-116); Aspartate Amino Transferase 12 U/L (15-37); Bilirubin Direct 0.1 mg/dL (0.0-0.2); Bilirubin Total 0.6 mg/dL (0.2-1.0); Globulin 3.8 g/dL; Total Protein 7.3 g/dL (6.4-8.2)
[2023-11-28 17:57] LABS: PROCALCITONIN 0.08 ng/mL (0.00-0.50)
[2023-11-28 18:03] LABS: pH VBG 7.477 (7.330-7.430)
[2023-11-28 18:16] LABS: Bilirubin Urine NEGATIVE (NEGATIVE); Blood Urine NEGATIVE (NEGATIVE); Clarity Urine CLEAR (CLEAR); Color Urine LT. YELLOW (YELLOW); Glucose Urine UA >=1000 mg/dL (NEGATIVE); Ketones Urine NEGATIVE (NEGATIVE); Leukocyte Esterase Urine NEGATIVE (NEGATIVE); Nitrite Urine NEGATIVE (NEGATIVE); Protein Urine 100 mg/dL (NEG/TRACE); Urobilinogen Urine 0.2 EU/dL (0.2-1.0); pH Urine 6.5 (5.0-9.0)
[2023-11-28 18:18] LABS: Lactate/Lactic Acid 1.2 mmol/L (0.4-2.0)
[2023-11-28 18:28] LABS: Influenza Virus A Antigen Negative; Influenza Virus B Antigen Negative; Internal Control Within Normal Limits; SARS-CoV-2 Ag NEGATIVE (NEGATIVE)
[2023-11-28 18:31] LABS: Bacteria Urine NONE SEEN #/HPF (NONE SEEN); Cast Seen? NONE SEEN #/LPF (NONE SEEN); Crystals Seen? None Seen #/HPF (None Seen); Mucus Urine NONE SEEN (NONE SEEN); RBC Urine 0-2 #/HPF (0-2); Squamous Epithelial Cell Urine NONE SEEN #/LPF (NONE/RARE); WBC Urine NONE SEEN #/HPF (NONE SEEN)
--- OUTSIDE RECORDS SUMMARY | 2023-11-28 18:36 | XMS_ITS | CCD ---
Author Name Unknown Address [address] [place] [address] Organization [facility] Care Team Providers Care Capacitor Repairer Name Role Phone Fatoumata Tirado Admitting Unavailable DulcesFatoumata HCirilo Attending Unavailable Fatoumata Tirado H. Referring Unavailable Fadi Tenorio Primary Care Unavailable DulcesFatoumata HCirilo Admitting Unavailable Fatoumata Tirado HCirilo Attending Unavailable Fatoumata Tirado H. Referring Unavailable Coby, Fadi Primary Care Unavailable House, Sr Fadi [...] LLEOWELL Admitting Unavailable PHUC, LLEOWELL Attending Unavailable House, DO Fadi Primary Care Provider DO Mario Phillips Emergency Provider MD Jonn Wallace Admit Provider MD Jonn Wallace Attending Provider DO Fadi Tneorio Primary Care Provider DO Mario Phillips Emergency Provider [phone] MD Jonn Wallace Admit Provider MD Jonn [...] Hernandez Other Provider HUMBERTO Das Attending Provider [phone] Shahla FLAHERTY, Rober Unavailable Bulmaro FLAHERTY, Raul Unavailable Agustin Hampton MD Unavailable Unavailable Unavailable [place] Plaza Unavailable Mika Das Unavailable Nury Martin Unavailable Yovany Agus Unavailable Jazzmine Dukes Unavailable DO Fadi Tenorio Primary Care Provider [phone] HUMBERTO Dasmaria teresa Baez Attending Provider [phone] Holly, DO Sinan Wilkes Emergency Provider [phone] Unavailable Primary Care Provider UnavailVJ Gomez II Attending Unavaildixon Lopes MD, Rober Unavailable Bulmaro FLAHERTY, Raul Unavailable Berta FLAHERTY, Agustin Unavailable Vivian FLAHERTY, Demetri Unavailable Shahla FLAHERTY, Rober Unavailable Bulmaro FLAHERTY, Raul Unavailable Berta FLAHERTY, Agustin Unavailable Vivian FLAHERTY, Demetri Unavailable Vivian FLAHERTY, Demetri Unavailable Unavailable Unavailable DR MURRAY YEBOAH Consulting Unavailable RODERICK ., ALDO Admitting Unavailable RODERICK ., ALDO Attending Unavailable [place], DR DUCKWORTH Primary Care Unavailable HAY ., DR SHERMAN Consulting Unavailable FAWWAD, SHAIKH Amada Consulting Unavailable DANDY, ANIBAL Consulting Unavailable LAZLOTTIE Consulting Unavailable SISTER, JESSICA Consulting Unavailable RODERICK ., ALDO Consulting Unavailable NEWATIA, SAMANTHA Consulting Unavailable BARAZI, TONY Consulting Unavailable FEIJUAN LUIS BARTH Consulting Unavailable COBY, DR DUCKWORTH Primary Care Unavailable [place], DR DUCKWORTH Admitting Unavailable [place], DR DUCKWORTH Attending Unavailable COBY, DR DUCKWORTH Consulting Unavailable COBY, DR DUCKWORTH [...] Provider DO Kameron Dos Santos Attending Provider [phone] DO Albert Woods Admit Provider MD Nkechi Kc Other Provider Vivian FLAHERTY, Demetri Unavailable DO Christopher Santiago Emergency Provider None, DO Doctor Primary Care Provider UnavailDO Chava Veras Attending Provider [phone] MD Helen Jovel Admit Provider MD Helen Jovel Attending Provider [phone] MD Radha Bell Other Provider MD Kan Granger Other Provider MD Jose Maria Lopez Other Provider [phone] MD Geovani Hebert Other Provider MD Elvin Lyles Other Provider DO Manda Scott Other Provider MD Marcelino Abel Other Provider MD Steve Block Other Provider MD Agus Morrison Other Provider MD Harjeet Ruelas Attending Provider Marcelino Abel Attending Unavailable Radha Bell Consulting Unavailable Helen Jovel Admitting Unavailable Kan Granger Consulting Unavailable Jose Maria Lopez Consulting Unavailable Geovani Hebert Consulting Unavailable Elvin Lyles Consulting Unavailable Manda Scott Consulting Unavailable Page Ummonika Consulting Unavailable Steve Block Consulting Unavailable Agus Morrison Consulting Unavailable Helen Jovel Consulting Unavailable Chava Hernandez Attending Unavailable Radha Bell Consulting Unavailable Parsi, Harjeet Attending Unavailable Parsi, Harjeet Admitting Unavailable Kan Granger Consulting Unavailable Norona, Jose Maria Consulting Unavailable Hebert, Geovani Consulting Unavailable KuElvin nguyễn Consulting Unavailable Manda Scott Consulting Unavailable ParacMarcelino powell Consulting Unavailable Tessarah, Steve Consulting Unavailable Agus Morrison Consulting Unavailable Marina Solis Attending Unavailable Parsi, Harjeet Consulting Unavailable Parsi, Harjeet Admitting Unavailable COBY, FADI Neves Primary Care Unavailable COBY, FADI P Primary Care Unavailable Remi Iyer MD Attending Unavailable COBY, FADI Neves Primary Care Unavailable Remi Iyer MD Attending Unavailable PROVIDER, UNKNOWN Attending Unavailable PATIENT, SELF Referring Unavailable PROVIDER, UNKNOWN Admitting Unavailable PROVIDER, UNKNOWN Attending Unavailable PROVIDER, UNKNOWN Admitting Unavailable PROVIDER, UNKNOWN Attending Unavailable PROVIDER, UNKNOWN Admitting Unavailable PROVIDER, UNKNOWN Admitting Unavailable PROVIDER, UNKNOWN Attending Unavailable PROVIDER, UNKNOWN Admitting Unavailable PROVIDER, UNKNOWN Attending Unavailable PROVIDER, UNKNOWN Attending Unavailable PROVIDER, UNKNOWN Admitting Unavailable Coby, Fadi Primary Care Unavailable Nkechi cK Consulting Unavailable Kameron Dos Santos Attending Unavailable [place] Admitting Unavailable Fadi Tenorio Primary Care Unavailable Mika Das Admitting Unavailable Mika Das Attending Unavailable Allergies Allergy Classification Reported Allergen(s) Allergy Type Date of Onset Reaction(s) Facility (2 sources) Promethazine; Translations: [Phenergan] Drug Allergy 6 [facility] Repository (20 sources) Promethazine; Translations: [promethazine] Drug Allergy 6 Other: See Comments [address] Bio Phone: (2 sources) Promethazine Drug Allergy 3 [facility] Repository Medications Current Medications Medication Drug Class(es) [...] UP TO 7 DAYS 0 10/08/2020 Active [id number] 200 actuat albuterol 0.09 mg/actuat metered dose [...] Albuterol Sulfate Active 2.5 MG Inhalation Q4H December 24, 2019 10:24am 12-24-2019 [facility] ([id number]) 0 12/24/2019 Active Start: 12-18-2019 End: 01-27-2021 [...] (20 sources) Dihydropyridine Calcium Channel Dale Start: 04-15-2023 take 10 mg by mouth once daily [...] Start: 01-27-2021 take 2 tablets by mo [facility] once daily vitamin C (ASCORBIC ACID) 500 [...] DAILY. Quantity: 90 Refills: 3 Ordered: 07-Mar-2022 Aicha Saleh Active 24 hr buPROPion hydrochloride 150 mg [...] Start: 05-16-2022 take 1 tablet by jacobo th once daily Empagliflozin (Jardiance) 10 mg tablet [...] D2) 1,250 mcg (50,000 unit) Capsule Active 22753 UNIT ORAL Every Week August 02, 2023 12:00am Start: 04-11-2023 take 1 capsule by mo [facility] every week Ergocalciferol 1.25 MG (59176 UT) 1 capsule Orally Q week for [...] daily 60 December 24, 2019 10:24am 12-24-2019 [facility] ([id number]) 0 12/24/2019 Active Start: 12-24-2019 End: 01-27-2021 [...] tablet (20 sources) Thiazide Diuretic Start: End: 04-16-2 021 take 1 tablet by mouth once daily [...] April 15, 2023 11:14pm Start: 01-27-2021 End: 11-01-2021 Insulin Aspart U-100 (Novolo g Flexpen U-100 [...] and bedtime December 24, 2019 10:24am 12-24-2019 [facility] ([id number]) 0 12/24/2019 Active NovoLOG FlexPen 100 UNIT/ML [...] Subcutaneous Daily December 24, 2019 10:24am 12-24-2019 [facility] ([id number]) 0 12/24/2019 Active Start: 12-24-2019 End: 06-21-2021 [...] 2 tablets by mo [facility] once daily levothyroxine (SYNTHROID) 25 MCG tablet [...] 2022 9:52pm take 1 tablet by jacobo every twenty-four hours Losartan Potassium 100 MG 1 tablet Orally Once a day Active melatonin 10 mg oral tablet (8 sources) Start: 01-10-2022 take 20 mg by mouth at bedtime Melatonin Active 20 MG PO Bedtime January 10, 2022 11:12pm Melatonin 10 MG Oral Tablet Take as directed Quantity: 0 Refills: 0 Ordered: 17-Jan-2022 DO Active take 2 tablets by mo [facility] once daily at bedtime melatonin [...] day by translingual route. 0 Active Pen Taylor 5/16 (19 sources) Start: 02-14-2022 Pen Taylor 5/ 16 Use with insulin pen needles SQ 6 times per day for 90 days February, Active Start: 02-14-2022 Pen Taylor 5/ 16 Use with insulin pen needles SQ 6 times per day for 90 day(s) February, Active Pen Taylor 5/16 Use with insulin pen needles SQ 6 times per day for 90 days Active phenylephrine hydrochloride 25 mg/ml ophthalmic solution (1 source) alpha-1 Adrenergic Agonist Start: 09-03-2022 End: 09-04-2022 PHENYLephrine 2.5 % 1 Drop (AK-DILATE, YVES-SYNEPHRINE) polyethylene glycol 3350 34581 mg powder for oral solution (7 sources) [...] 11:20pm Start: 01-27-2021 take 2 tablets by [facility] once daily potassium chloride SA (K-DUR) [...] Oral Daily December 24, 2019 10:24am 12-24-2019 [facility] ([id number]) 0 12/24/2019 Active take 2 tablets by mo [facility] once daily Potassium Chloride Ria [...] Active 17.2 MG PO Daily at bedtime August 14, 2021 10:15am Start: 08-14-2021 End: [...] 2019 12:00am January 27, 2021 1:52pm sennosides, shelter 8.6 mg oral tablet (15 sources) Start: 12-24-2019 senna (SENOKOT ) 8.6 MG TABS tablet sennosides, HALFWAY Sennosides Active 2 TAB Oral DAILY@December 24, 2019 10:24am 12-24-2019 [facility] ([id number]) 0 12/24/2019 Active take 2 tablets by [facility] every twenty-four hours Senna Laxative 8.6 [...] (1 source) alpha-Adrenergi c Dale Start: 08-02-20 23 take 0.4 mg by mouth at bedtime [...] Topical Daily December 24, 2019 5:24pm 12-24-2019 [facility] ([id number]) 0 12/24/2019 Active Start: 12-24-2019 bacitracin 500 UNIT/GM ointment Bacitracin Bacitracin Active 1 APPLIC Topical Daily December 24, 2019 5:24pm 12-24-2019 [facility] ([id number]) 0 12/24/2019 Active Bacitracin Activ e bevacizumab [...] 5 MG PO Every 4 hours 30 7 August 14, 2021 January 10, 2022 1:40pm Start: 01-27-2021 End: 07-28-2021 take 5 mg by mouth every six hours Oxycodone Discontinued 5 MG PO Every 6 hours 28 7 January 27, 2021 July 28, 2021 2:52pm Start: 10-01-2020 take 1 tablet by jacobo th every eight hours for pain oxyCODONE 5 MG immediate release tablet take 1 tablet by mouth every 8 hours if needed for pain 0 10/01/2020 Active pregabalin 75 mg oral capsule (20 sources) Start: 01-27-2021 End: 08-14-2021 take 75 mg by mouth once daily at bedtime Pregabalin Discontinued 75 MG PO Daily at bedtime 30 30 January 27, 2021 1:41pm August 14, 2021 5:16pm Start: 09-26-2020 take 1 capsule by mo [facility] three times daily pregabalin (LYRICA) 75 MG [...] [Coronary atherosclerosis of unspecified type of vessel, [place] or graft] Onset: 3 Chronic Deficiency and [...] sources) Long-term current use of insulin; Translations: [group home (current) use of insulin] Episodic Other aftercare (4 sources) group home (current) use of insulin; Translations: [group home current use of insulin Z79.4] Onset: 1 Resolved: 2 Episodic Other aftercare (1 source) manager terminal (current) use of antithrombotics/antiplat elets; Translations: [[facility] ANTITHROMBOT/ANTIPLATLET S] Onset: 3 Episodic Other aftercare (1 source) manager terminal (current) use of aspirin; Translations: [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 CURRENT USE OF ASPIRIN] Onset: 3 Episodic Other aftercare (1 source) group home (current) use of oral hypoglycemic drugs; Translations: [[facility] USE ORAL HYPOGLYCEMIC DX] Onset: 3 Episodic Other aftercare (1 source) Other buttermaker continuous churn (current) drug therapy; Translations: [OTH [facility] CURRENT DRUG THERAPY] Onset: 3 Episodic Other [...] artery of lower limb; Translations: [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 [...] Test Name Value Interpretation Reference Range Facility Progress Noteson 11-06-2023 Body Press Operator Authentication Interface Message Text Longstanding PDR OU, DME, mac ischemia OU Sp PRP OU, Repeated injections - last 10/2022, 06/2023, 09/11/23 (OS only) Did not notice any real improvement with [...] PRP 12/2022 - OCT with stable contour, minimal fluid - but no real improvement in vision - old heme inferior LEFT- PDR 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 Amaurosis fugax OU - Reported ~08/2020 with transient vision loss episodes but now resolved as of 10/2020, today again reporting two episodes last minute over the last month - 12/2019 MRA neck no ICA stenosis - GCA symptoms POWELL, jaw mikaela, F/C negative today - rec go to ED if symptoms recur, discussed importance that he is not having another stroke Return 8 weeks Dilate OU OCT mac OU Normal [facility] Ophthalmologic hilary tmenton 09-11-2023 Time Out The date was 09/11/2023. The time was 4:54 PM. Confirmed correct patient, procedure, site, and patient consented. Anesthesia Subconjunctival anesthesia was used. Anesthetic medications included Lidocaine 2%. Procedure Preparation included 5% betadine to ocular surface. A 30 gauge needle was used. Injection Medications: 1.25 mg bevacizumab 1.25MG/0.05 mL Route: Intravitreal Lot: [id number], Expiration date: 09/11/2023 Post-op Post injection exam found visual acuity of at least counting fingers. The patient tolerated the procedure well. There were no complications. Post injection medications were not given. Notes Avastin [facility] Radiology Study observation (narrative) [facility] Progress Noteson 09-11-2023 Body Press Operator Authentication Interface Message Text Longstanding PDR OU, [...] Dilate OU OCT mac OU Normal [facility] Study observation Right reti na by OCTon 09-11-2023 Right Eye Quality was good. Scan locations included subfoveal. Left Eye Quality was good. Scan locations included subfoveal. Notes OD: stable, thin, no fluid OS: improving view, thin, no fluid [facility] Radiology Study observation (narrative) [facility] Blood Cultureon 08-07-2023 Bacteria identified Cx Nom (Bld) ---- Blood Culture: NG5^NO GROWTH. NG5^Time of report was 120 hours. Normal [facility] Comment on above: Order Comment: Speci men Type: Unknown Relevant Clinical Information: Altered mental status, hypoglycemia, hypothermia Ordering Facility: [facility] Lab-CLIA#[id number] Address: [address] [place] [address] Performed By: #### M G, CMP #### [facility] Lab-CLIA#[id number] CLIA [id number] [address] [place] [address] Phil Franklin DO,FCADELA Absolute lymphocyte countOrd ered By: Helen Jovel on 08-03-2023 Lymphocytes Auto (Unsp spec) [#/Vol] 1.26 10*3/uL 0.80-3.30 [facility] Comment on above: Delta: 0.92 on 08/02 Basophils Auto (Bld) [#/Vol] Ordered By: Helen Jovel on 08-03-2023 Basophils (Bld) [#/Vol] 0.03 10*3/uL 0.00-0.10 [facility] Basophils/100 WBC Auto (Bld) Ordered By: Helen Jovel on 08-03-2023 Basophils/100 WBC (Bld) 0.3 % 0.0-1.3 [facility] Blood hemoglobin measurement (mass/volume)Ordered By: Helen Jovel on 08-03-2023 Hemoglobin (Bld) [Mass/Vol] 11.7 g/dL 13.5-17.7 [facility] Comment on above: Delta: 14.0 on 08/02 CBC w/ Auto Diffon Basophils Absolute Auto 0.03 10*3/uL Normal 0.00-0.10 [facility] Comment on above: Order Comment: Speci men Type: Unknown Relevant Clinical Information: Altered mental status, hypoglycemia, hypothermia Ordering Facility: [facility] Address: , , Performed By: #### G LUCOMETER #### [facility] Basophils/100 WBC (Bld) 0.3 % Normal 0.0-1.3 [facility] Comment on above: Order Comment: Speci men Type: Unknown Relevant Clinical Information: Altered mental status, hypoglycemia, hypothermia Ordering Facility: [facility] Address: , , Performed By: #### G LUCOMETER #### [facility] Eosinophils (Bld) [#/Vol] 0.31 10*3/uL Normal 0.00-0.50 [facility] Comment on above: Order Comment: Speci men Type: Unknown Relevant Clinical Information: Altered mental status, hypoglycemia, hypothermia Ordering Facility: [facility] Address: , , Performed By: #### G LUCOMETER #### [facility] Eosinophils/100 WBC (Bld) 3.0 % Normal 0.0-5.8 [facility] Comment on above: Order Comment: Speci men Type: Unknown Relevant Clinical Information: Altered mental status, hypoglycemia, hypothermia Ordering Facility: [facility] Address: , , Performed By: #### G LUCOMETER #### [facility] Erythrocyte distribution width (RBC) [Ratio] 13.2 % Normal 11.6-14.8 [facility] Comment on above: Order Comment: Speci men Type: Unknown Relevant Clinical Information: Altered mental status, hypoglycemia, hypothermia Ordering Facility: [facility] Address: , , Performed By: #### G LUCOMETER #### [facility] Hematocrit (Bld) [Volume fraction] 34.3 % Low 41.0-53.0 [facility] Comment on above: Order Comment: Speci men Type: Unknown Relevant Clinical Information: Altered mental status, hypoglycemia, hypothermia Ordering Facility: [facility] Address: , , Performed By: #### G LUCOMETER #### [facility] Hemoglobin (Bld) [Mass/Vol] 11.7 g/dL Low 13.5-17.7 [facility] Comment on above: Order Comment: Speci men Type: Unknown Relevant Clinical Information: Altered mental status, hypoglycemia, hypothermia Ordering Facility: [facility] Address: , , Performed By: #### G LUCOMETER #### [facility] Lymphocytes (Bld) [#/Vol] 1.26 10*3/uL Normal 0.80-3.30 [facility] Comment on above: Order Comment: Speci men Type: Unknown Relevant Clinical Information: Altered mental status, hypoglycemia, hypothermia Ordering Facility: [facility] Address: , , Performed By: #### G LUCOMETER #### [facility] Lymphocytes/100 WBC (Bld) 12.2 % Low 13.4-45.1 [facility] Comment on above: Order Comment: Speci men Type: Unknown Relevant Clinical Information: Altered mental status, hypoglycemia, hypothermia Ordering Facility: [facility] Address: , , Performed By: #### G LUCOMETER #### [facility] MCH (RBC) [Entitic mass] 31.5 pg Normal 27.2-33.0 [facility] Comment on above: Order Comment: Speci men Type: Unknown Relevant Clinical Information: Altered mental status, hypoglycemia, hypothermia Ordering Facility: [facility] Address: , , Performed By: #### G LUCOMETER #### [facility] MCHC (RBC) [Mass/Vol] 34.1 g/dL Normal 31.9-35.1 [facility] Comment on above: Order Comment: Speci men Type: Unknown Relevant Clinical Information: Altered mental status, hypoglycemia, hypothermia Ordering Facility: [facility] Address: , , Performed By: #### G LUCOMETER #### [facility] MCV (RBC) [Entitic vol] 92.5 fL Normal 81.7-97.1 [facility] Comment on above: Order Comment: Speci men Type: Unknown Relevant Clinical Information: Altered mental status, hypoglycemia, hypothermia Ordering Facility: [facility] Address: , , Performed By: #### G LUCOMETER #### [facility] Monocytes (Bld) [#/Vol] 0.77 10*3/uL Normal 0.30-0.90 [facility] Comment on above: Order Comment: Speci men Type: Unknown Relevant Clinical Information: Altered mental status, hypoglycemia, hypothermia Ordering Facility: [facility] Address: , , Performed By: #### G LUCOMETER #### [facility] Monocytes/100 WBC (Bld) 7.5 % Normal 4.0-12.7 [facility] Comment on above: Order Comment: Speci men Type: Unknown Relevant Clinical Information: Altered mental status, hypoglycemia, hypothermia Ordering Facility: [facility] Address: , , Performed By: #### G LUCOMETER #### [facility] Neutrophils Absolute Auto 7.89 10*3/uL High 1.70-7.00 [facility] Comment on above: Order Comment: Speci men Type: Unknown Relevant Clinical Information: Altered mental status, hypoglycemia, hypothermia Ordering Facility: [facility] Address: , , Performed By: #### G LUCOMETER #### [facility] Neutrophils/100 WBC (Bld) 76.6 % High 41.1-75.9 [facility] Comment on above: Order Comment: Speci men Type: Unknown Relevant Clinical Information: Altered mental status, hypoglycemia, hypothermia Ordering Facility: [facility] Address: , , Performed By: #### G LUCOMETER #### [facility] Platelet mean volume (Bld) [Entitic vol] 11.3 fL Normal 8.6-12.2 [facility] Comment on above: Order Comment: Speci men Type: Unknown Relevant Clinical Information: Altered mental status, hypoglycemia, hypothermia Ordering Facility: [facility] Address: , , Performed By: #### G LUCOMETER #### [facility] Platelets (Bld) [#/Vol] 220 10*3/uL Normal 133-425 [facility] Comment on above: Order Comment: Speci men Type: Unknown Relevant Clinical Information: Altered mental status, hypoglycemia, hypothermia Ordering Facility: [facility] Address: , , Performed By: #### G LUCOMETER #### [facility]OC RBC (Bld) [#/Vol] 3.71 10*6/uL Low 3.90-5.90 [facility] Comment on above: Order Comment: Speci men Type: Unknown Relevant Clinical Information: Altered mental status, hypoglycemia, hypothermia Ordering Facility: [facility] Address: , , Performed By: #### G LUCOMETER #### [facility] WBC (Bld) [#/Vol] 10.3 10*3/uL Normal 4.5-11.0 [facility] Comment on above: Order Comment: Speci men Type: Unknown Relevant Clinical Information: Altered mental status, hypoglycemia, hypothermia Ordering Facility: [facility] Address: , , Performed By: #### G LUCOMETER #### [facility] Comprehensive Metabolic Pane velasquez 08-03-2023 Albumin [Mass/Vol] 2.9 g/dL Low 3.4-5.0 [facility] Comment on above: Order Comment: Speci men Type: Unknown Relevant Clinical Information: Altered mental status, hypoglycemia, hypothermia Ordering Facility: [facility] Lab-CLIA#[id number] Address: [address] [place] [address] Performed By: #### M G, CMP #### [facility] Lab-CLIA#[id number] CLIA [id number] [address] [place] [address] Phil Franklin DO, FCAP ALP [Catalytic activity/Vol] 100 U/L Normal 46-116 [facility] Comment on above: Order Comment: Speci men Type: Unknown Relevant Clinical Information: Altered mental status, hypoglycemia, hypothermia Ordering Facility: [facility] Lab-CLIA#[id number] Address: [address] [place] [address] Performed By: #### M G, CMP #### [facility] Lab-CLIA#[id number] CLIA [id number] [address] [place], [place] [id number] Vincrony Randhallesi, DO,FCAP ALT [Catalytic activity/Vol] 16 U/L Normal 10-49 [facility] Comment on above: Order Comment: Speci men Type: Unknown Relevant Clinical Information: Altered mental status, hypoglycemia, hypothermia Ordering Facility: [facility] Lab-CLIA#[id number] Address: [address] [place] [address] Performed By: #### Aislinn Worthy, CMP #### [facility] Lab-CLIA#[id number] CLIA [id number] [address] [place] [address] Vincrony Luceroaisi, DO,FCAP Anion gap [Moles/Vol] 12 mmol/L Normal 7-17 [facility] Comment on above: Order Comment: Speci men Type: Unknown Relevant Clinical Information: Altered mental status, hypoglycemia, hypothermia Ordering Facility: [facility] Lab-CLIA#[id number] Address: [address] [place] [address] Performed By: #### Aislinn Worthy, CMP #### [facility] Lab-CLIA#[id number] CLIA [id number] [address] [place] [address] Vincrony Randaisi, DO,FCAP AST [Catalytic activity/Vol] 16 U/L Normal <34 [facility] Comment on above: Order Comment: Speci men Type: Unknown Relevant Clinical Information: Altered mental status, hypoglycemia, hypothermia Ordering Facility: [facility]-CLIA#[id number] Address: [address] [place] [address] Performed By: #### Aislinn Worthy, CMP #### [facility]-CLIA#[id number] CLIA [id number] [address] [place], [place] [address] Vincrony Randhallesi, DO,FCAP Bilirubin [Mass/Vol] 0.3 mg/dL Normal 0.3-1.2 [facility] Comment on above: Order Comment: Speci men Type: Unknown Relevant Clinical Information: Altered mental status, hypoglycemia, hypothermia Ordering Facility: [facility]-CLIA#[id number] Address: [address] [place] [address] Performed By: #### Aislinn Worthy, CMP #### [facility]-CLIA#[id number] CLIA [id number] [address] [place] [address] Vincrony Franklin, DO,FCAP Calcium [Mass/Vol] 8.2 mg/dL Low 8.3-10.6 [facility] Comment on above: Order Comment: Speci men Type: Unknown Relevant Clinical Information: Altered mental status, hypoglycemia, hypothermia Ordering Facility: [facility]-CLIA#[id number] Address: [address] [place] [address] Performed By: #### Aislinn Worthy, CMP #### [facility]-CLIA#[id number] CLIA [id number] [address] [place] [address] Phil Franklin, DO,FCAP Chloride [Moles/Vol] 111 mmol/L High 98-107 [facility] Comment on above: Order Comment: Speci men Type: Unknown Relevant Clinical Information: Altered mental status, hypoglycemia, hypothermia Ordering Facility: [facility]-CLIA#[id number] Address: [address] [place] [address] Performed By: #### Aislinn Worthy, CMP #### [facility]-CLIA#[id number] CLIA [id number] [address] [place] [address] Phil Franklin, DO,FCAP CO2 [Moles/Vol] 22 mmol/L Normal 20-31 [facility] Comment on above: Order Comment: Speci men Type: Unknown Relevant Clinical Information: Altered mental status, hypoglycemia, hypothermia Ordering Facility: [facility]-CLIA#[id number] Address: [address] [place] [address] Performed By: #### Aislinn Worthy, CMP #### [facility]-CLIA#[id number] CLIA [id number] [address] [place] [address] Vincrony Dialsi, DO,FCAP Creatinine [Mass/Vol] 2.348 mg/dL High 0.70-1.30 So [facility] Comment on above: Order Comment: Speci men Type: Unknown Relevant Clinical Information: Altered mental status, hypoglycemia, hypothermia Ordering Facility: [facility]-CLIA#[id number] Address: [address] [place] [address] Performed By: #### M G, CMP #### [facility]-CLIA#[id number] CLIA [id number] [address] [place] [address] Phil Franklin DO,FCAP Creatinine Clr Calc Pharmacy 36 [facility] Comment on above: Order Comment: Speci men Type: Unknown Relevant Clinical Information: Altered mental status, hypoglycemia, hypothermia Ordering Facility: [facility]-CLIA#[id number] Address: [address] [place] [address] Performed By: #### M G, CMP #### [facility]-CLIA#[id number] CLIA [id number] [address] [place] [address] Phil Franklin DO,FCAP GFR/1.73 sq M.predicted MDRD (S/P/Bld) [Vol rate/Area] 31 mL/min/{1.73_m2} [facility] Comment on above: Order Comment: Speci men Type: Unknown Relevant Clinical Information: Altered mental status, hypoglycemia, hypothermia Ordering Facility: [facility]-CLIA#[id number] Address: [address] [place] [address] Result Comment: K/DO QI Guideline: Stage 1 [...] Performed By: #### Aislinn Worthy, CMP #### [facility]-CLIA#[id number] CLIA [id number] [address] [place] [address] Phil Franklin, DO,FCAP Glucose [Mass/Vol] 147 mg/dL High 74-[address] [facility] Comment on above: Order Comment: Speci men Type: Unknown Relevant Clinical Information: Altered mental status, hypoglycemia, hypothermia Ordering Facility: [facility]-CLIA#[id number] Address: [address] [place] [address] Performed By: #### Aislinn Worthy, CMP #### [facility]-CLIA#[id number] CLIA [id number] [address] [place] [address] Phil Franklin, DO,FCAP Potassium [Moles/Vol] 4.6 mmol/L Normal 3.5-5.[address] [facility] Comment on above: Order Comment: Speci men Type: Unknown Relevant Clinical Information: Altered mental status, hypoglycemia, hypothermia Ordering Facility: [facility]-CLIA#[id number] Address: [address] [place] [address] Performed By: #### Aislinn Worthy, CMP #### [facility]-CLIA#[id number] CLIA [id number] [address] [place] [address] Phil Franklin, DO,FCAP Protein [Mass/Vol] 5.4 g/dL Low 5.7-8.[address] [facility] Comment on above: Order Comment: Speci men Type: Unknown Relevant Clinical Information: Altered mental status, hypoglycemia, hypothermia Ordering Facility: [facility]-CLIA#[id number] Address: [address] [place] [address] Performed By: #### Aislinn Worthy, CMP #### [facility]-CLIA#[id number] CLIA [id number] [address] [place] [address] Phil Franklin DO,FCAP Sodium [Moles/Vol] 140 mmol/L Normal 136-145 [facility] Comment on above: Order Comment: Speci men Type: Unknown Relevant Clinical Information: Altered mental status, hypoglycemia, hypothermia Ordering Facility: [facility]-CLIA#[id number] Address: [address] [place] [address] Performed By: #### M G, CMP #### [facility]-CLIA#[id number] CLIA [id number] [address] [place] [address] Phil Franklin DO,FCAP Urea nitrogen [Mass/Vol] 50 mg/dL High 07-06 [facility] Comment on above: Order Comment: Speci men Type: Unknown Relevant Clinical Information: Altered mental status, hypoglycemia, hypothermia Ordering Facility: [facility]-CLIA#[id number] Address: [address] [place] [address] Performed By: #### Aislinn G, CMP #### [facility]-CLIA#[id number] CLIA [id number] [address] [place] [address] Phil Franklin DO,FCAP Eosinophils Auto (Bld) [#/Vo l]Ordered By: Helen Jovel on 08-03-2023 Eosinophils (Bld) [#/Vol] 0.31 10*3/uL 0.00-0.50 [facility] Eosinophils/100 WBC Auto (Bl d)Ordered By: Helen Jovel on 08-03-2023 Eosinophils/100 WBC (Bld) 3.0 % 0.0-5.8 [facility] Comment on above: Delta: 2.0 on -0424 Erythrocyte distribution wid th Auto (RBC) [Ratio]Ordered By: Helen Jovel on 08-03-2023 Erythrocyte distribution width (RBC) [Ratio] 13.2 % 11.6-14.8 [facility] Glomerular filtration rate ( GFR) estimation/1.73 sq m using creatinine measurement wiOrdered By: Helen Jovel on 08-03-2023 GFR/1.73 sq M.predicted CKD-EPI (S/P/Bld) [Vol rate/Area] 31 mL/min >60 [facility] Comment on above: K/DOQI Guideline:Sta ge [...] [Mass/Vol] 339 mg/dL High 70-[address] [facility] Comment on above: Order Comment: Speci men Type: Unknown Relevant Clinical Information: Altered mental status, hypoglycemia, hypothermia Ordering Facility: [facility]-CLIA#[id number] Address: [address] [place] [address] Performed By: #### M G, CMP #### [facility]-CLIA#[id number] CLIA [id number] [address] [place] [address] Phil Franklin DOFCAP Glucose [Mass/Vol] 165 mg/dL High 70-[address] [facility] Comment on above: Order Comment: Speci men Type: Unknown Relevant Clinical Information: Altered mental status, hypoglycemia, hypothermia Ordering Facility: [facility] Address: , , Performed By: #### G LUCOMETER #### [facility] Glucose [Mass/Vol] 381 mg/dL High 70-[address] [facility] Comment on above: Order Comment: Speci men Type: Unknown Relevant Clinical Information: Altered mental status, hypoglycemia, hypothermia Ordering Facility: [facility] Address: , , Performed By: #### G LUCOMETER #### [facility] Glucose Glucometer (BldC) [M ass/Vol]Ordered By: Harjeet Ruelas on 08-03-2023 Glucose [Mass/Vol] 339 mg/dL 70-110 Dori martínez [facility] Hematocrit Auto (Bld) [Volum e fraction]Ordered By: Helen Jovel on 08-03-2023 Hematocrit (Bld) [Volume fraction] 34.3 % 41.0-53.0 [facility] Laboratory - Chemistry and C hemistry - challengeOrdered By: Helen Jovel on 08-03-2023 Anion gap [Moles/Vol] 12 mmol/L 7-17 [facility] Lymphocytes/100 WBC Auto (Bl d)Ordered By: Helen Jovel on 08-03-2023 Lymphocytes/100 WBC (Bld) 12.2 % 13.4-45.1 [facility] Comment on above: Delta: 6.3 on MCH Auto (RBC) [Entitic mass ]Ordered By: Helen Jovel on 08-03-2023 MCH (RBC) [Entitic mass] 31.5 pg 27.2-33.0 [facility] MCHC Auto (RBC) [Mass/Vol]Or dered By: Helen Jovel on 08-03-2023 MCHC (RBC) [Mass/Vol] 34.1 g/dL 31.9-35.1 [facility] MCV (mean corpuscular volume ) determinationOrdered By: Helen Jovel on 08-03-2023 MCV (RBC) [Entitic vol] 92.5 fL 81.7-97.1 [facility] Comment on above: Delta: 89.8 on 08/02 Magnesiumon 08-03-2023 Magnesium [Mass/Vol] 1.9 mg/dL Normal 1.6-2.6 [facility] Comment on above: Order Comment: Speci men Type: Unknown Relevant Clinical Information: Altered mental status, hypoglycemia, hypothermia Ordering Facility: [facility]-CLIA#[id number] Address: [address] [place] [address] Performed By: #### M G, CMP #### [facility]-CLIA#[id number] CLIA [id number] [address] [place] [address] Phil Franklin DO, FCAP Monocytes Auto (Bld) [#/Vol] Ordered By: Helen Jovel on 08-03-2023 Monocytes (Bld) [#/Vol] 0.77 10*3/uL 0.30-0.90 [facility] Comment on above: Delta: 0.50 on 08/02 Monocytes/100 WBC Auto (Bld) Ordered By: Helen Jovel on 08-03-2023 Monocytes/100 WBC (Bld) 7.5 % 4.0-12.7 [facility] Comment on above: Delta: 3.4 on Neutrophils Auto (Bld) [#/Vo l]Ordered By: Helen Jovel on 08-03-2023 Neutrophils (Bld) [#/Vol] 7.89 10*3/uL 1.70-7.00 [facility] Comment on above: Delta: 12.71 on 07/154 Neutrophils/100 WBC Auto (Bl d)Ordered By: Helen Jovel on 08-03-2023 Neutrophils/100 WBC (Bld) 76.6 % 41.1-75.9 [facility] No Panel InformationOrdered By: Helen Jovel on 08-03-2023 Pharmacy Creatinine Clearance (Chem 36 [facility] Platelet mean volume Auto (B ld) [Entitic vol]Ordered By: Helen Jovel on 08-03-2023 Platelet mean volume (Bld) [Entitic vol] 11.3 fL 8.6-12.2 [facility] Platelets Auto (Bld) [#/Vol] Ordered By: Helen Jovel on 08-03-2023 Platelets (Bld) [#/Vol] 220 10*3/uL 133-425 [facility] RBC Auto (Bld) [#/Vol]Ordere d By: Helen Jovel on 08-03-2023 RBC (Bld) [#/Vol] 3.71 10*6/uL 3.90-5.90 [facility] Serum or plasma alanine walton otransferase measurement with P-5'-P (enzymatic activity/Ordered By: Helen Jovel on 08-03-2023 ALT With P-5'-P [Catalytic activity/Vol] 16 U/L 10-49 [facility] Serum or plasma albumin regi urement by bromocresol purple (BCP) dye binding method (mOrdered By: Helen Jovel on 08-03-2023 Albumin BCP dye [Mass/Vol] 2.9 g/dL 3.4-5.0 [facility] Serum or plasma alkaline mari sphatase measurement (enzymatic activity/volume)Ordered By: Helen Jovel on 08-03-2023 ALP [Catalytic activity/Vol] 100 U/L 46-116 [facility] Serum or plasma aspartate am inotransferase measurement with P-5'-P (enzymatic activitOrdered By: Helen Jovel on 08-03-2023 AST With P-5'-P [Catalytic activity/Vol] 16 U/L 0-33 [facility] Serum or plasma calcium regi urement (mass/volume)Ordered By: Helen Jovel on 08-03-2023 Calcium [Mass/Vol] 8.2 mg/dL 8.3-10.6 Dori martínez [facility] Serum or plasma chloride taryn surement (moles/volume)Ordered By: Helen Jovel on 08-03-2023 Chloride [Moles/Vol] 111 mmol/L 98-[address] [facility] Serum or plasma creatinine m easurement (mass/volume)Ordered By: Helen Jovel on 08-03-2023 Creatinine [Mass/Vol] 2.348 mg/dL 0.70-1.[address] [facility] Serum or plasma glucose regi urement (mass/volume)Ordered By: Helen Jovel on 08-03-2023 Glucose [Mass/Vol] 147 mg/dL 74-106 Dori martínez [facility] Comment on above: Delta: 30 on 34 Serum or plasma magnesium me asurement (mass/volume)Ordered By: Helen Jovel on 08-03-2023 Magnesium [Mass/Vol] 1.9 mg/dL 1.6-2.6 [facility] Serum or plasma potassium me asurement (moles/volume)Ordered By: Helen Jovel on 08-03-2023 Potassium [Moles/Vol] 4.6 mmol/L 3.5-5.1 [facility] Serum or plasma sodium measu rement (moles/volume)Ordered By: Helen Jovel on 08-03-2023 Sodium [Moles/Vol] 140 mmol/L 136-145 Dori martínez [facility] Serum or plasma total biliru bin measurement (mass/volume)Ordered By: Helen Jovel on 08-03-2023 Bilirubin [Mass/Vol] 0.3 mg/dL 0.3-1.2 [facility] Serum or plasma total carbon dioxide measurement (moles/volume)Ordered By: Helen Jovel on 08-03-2023 CO2 [Moles/Vol] 22 mmol/L [facility] Serum or plasma urea nitroge n measurement (mass/volume)Ordered By: Helen Jovel on 08-03-2023 Urea nitrogen [Mass/Vol] 50 mg/dL 07-06 [facility] Serum total protein measurem ent (mass/volume)Ordered By: Helen Jovel on 08-03-2023 Protein [Mass/Vol] 5.4 g/dL 5.7-8.2 Dori [facility] WBC Auto (Bld) [#/Vol]Ordere d By: Helen Jovel on 08-03-2023 WBC (Bld) [#/Vol] 10.3 10*3/uL 4.5-11.0 [facility] Comment on above: Delta: 14.5 on 08/02 Absolute lymphocyte countOrd ered By: Christopher Santiago on 08-02-2023 Lymphocytes Auto (Unsp spec) [#/Vol] 0.92 10*3/uL 0.80-3.30 [facility] Amphetamine Screen Ql (U)Ord ered By: Helen Stanleyfadi on 08-02-2023 Amphetamines Ql (U) Not detected None Detect [facility] Comment on above: Cutoff: 500ng/mL Appearance urOrdered By: Lety shelton Med on 08-02-2023 Appearance (U) Clear Clear [facility] Arterial Blood Gason 023 Glucose [Mass/Vol] 39 mg/dL Critically low 70-110 So [facility] Comment on above: Order Comment: Speci men Type: Unknown Relevant Clinical Information: low gluc Ordering Facility: [facility]-CLIA#[id number] Address: [address] [place] [address] Performed By: #### A BG #### [facility]-CLIA#[id number] CLIA [id number] [address] [place] [address] Phil Franklin DO,FCAP Hemoglobin (Bld) [Mass/Vol] 14.0 g/dL Normal 12.2-18.1 [facility] Comment on above: Order Comment: Speci men Type: Unknown Relevant Clinical Information: low gluc Ordering Facility: [facility]-CLIA#[id number] Address: [address] [place] [address] Performed By: #### A BG #### [facility]-CLIA#[id number] CLIA [id number] [address] [place] [address] Phil Franklin DO,FCAP Normalized Ionized Calcium 1.19 mmol/L Normal 1.01-1.33 [facility] Comment on above: Order Comment: Speci men Type: Unknown Relevant Clinical Information: low gluc Ordering Facility: [facility]-CLIA#[id number] Address: [address] [place] [address] Performed By: #### A BG #### [facility]-CLIA#[id number] CLIA [id number] [address] [place] [address] Phil Franklin DO,FCAP Arterial Blood Methemoglobin 0.3 % Normal 0.0-0.3 [facility] Comment on above: Order Comment: Speci men Type: Unknown Relevant Clinical Information: low gluc Ordering Facility: [facility]-CLIA#[id number] Address: [address] [place] [address] Performed By: #### A BG #### [facility]-CLIA#[id number] CLIA [id number] [address] [place] [address] Phil Franklin DO,FCAP Arterial Lactate 0.7 mmol/L Normal 0.5-1.6 [facility] Comment on above: Order Comment: Speci men Type: Unknown Relevant Clinical Information: low gluc Ordering Facility: [facility]-CLIA#[id number] Address: [address] [place] [address] Performed By: #### A BG #### [facility]-CLIA#[id number] CLIA [id number] [address] [place] [address] Phil Franklin, DO,FCAP Base Excess ABG -3.6 mmol/L Normal [facility] Comment on above: Order Comment: Speci men Type: Unknown Relevant Clinical Information: low gluc Ordering Facility: [facility]-CLIA#[id number] Address: [address] [place] [address] Performed By: #### A BG #### [facility]-CLIA#[id number] CLIA [id number] [address] [place] [address] Phil Franklin DO,FCAP Carboxyhemoglobin 4.1 % High 0.1-2.5 [facility] Comment on above: Order Comment: Speci men Type: Unknown Relevant Clinical Information: low gluc Ordering Facility: [facility]-CLIA#[id number] Address: [address] [place] [address] Performed By: #### A BG #### [facility]-CLIA#[id number] CLIA [id number] [address] [place] [address] Phil Franklin, DO,FCAP Fractionated Inspired Oxygen 21 % Normal [facility] Comment on above: Order Comment: Speci men Type: Unknown Relevant Clinical Information: low gluc Ordering Facility: [facility]-CLIA#[id number] Address: [address] [place] [address] Performed By: #### A BG #### [facility]-CLIA#[id number] CLIA [id number] [address] [place] [address] Vincrony Franklin, DO,FCAP HCO3 (Bld) [Moles/Vol] 22 mmol/L Normal 22-26 So [facility] Comment on above: Order Comment: Speci men Type: Unknown Relevant Clinical Information: low gluc Ordering Facility: [facility]-CLIA#[id number] Address: [address] [place] [address] Performed By: #### A BG #### [facility]-CLIA#[id number] CLIA [id number] [address] [place] [address] Phil Franklin, DO,FCAP Oxygen Content ABG 17.9 mL/dL Normal 17-100 [facility] Comment on above: Order Comment: Speci men Type: Unknown Relevant Clinical Information: low gluc Ordering Facility: [facility]-CLIA#[id number] Address: [address] [place] [address] Performed By: #### A BG #### [facility]IA#[id number] CLIA [id number] [address] [place] [address] Phil Franklin, DO,FCAP Oxygen Saturation ABG 95.1 % Low 96-97 [facility] Comment on above: Order Comment: Speci men Type: Unknown Relevant Clinical Information: low gluc Ordering Facility: [facility]-CLIA#[id number] Address: [address] [place] [address] Performed By: #### A BG #### [facility]IA#[id number] CLIA [id number] [address] [place] [address] Vincent Randaisi, DO,FCAP PCO2 ABG 41 mm[Hg] Normal 32-53 [facility] Comment on above: Order Comment: Speci men Type: Unknown Relevant Clinical Information: low gluc Ordering Facility: [facility]-CLIA#[id number] Address: [address] [place] [address] Performed By: #### A BG #### [facility]-CLIA#[id number] CLIA [id number] [address] [place] [address] Vincent Randaisi, DO,FCAP PO2 ABG 82.2 mm[Hg] Normal 80-110 [facility] Comment on above: Order Comment: Speci men Type: Unknown Relevant Clinical Information: low gluc Ordering Facility: [facility]-CLIA#[id number] Address: [address] [place] [address] Performed By: #### A BG #### [facility]IA#[id number] CLIA [id number] [address] [place] [address] Vincrony Randaisi, DO,FCAP Potassium [Moles/Vol] 4.5 mmol/L Normal 3.5-5.1 [facility] Comment on above: Order Comment: Speci men Type: Unknown Relevant Clinical Information: low gluc Ordering Facility: [facility]-CLIA#[id number] Address: [address] [place] [address] Performed By: #### A BG #### [facility]CLIA#[id number] CLIA [id number] [address] [place] [address] Vincent Randaisi, DO,FCAP Sodium [Moles/Vol] 139 mmol/L Normal 136-145 [facility] Comment on above: Order Comment: Speci men Type: Unknown Relevant Clinical Information: low gluc Ordering Facility: [facility]-CLIA#[id number] Address: [address] [place] [address] Performed By: #### A BG #### [facility]-CLIA#[id number] CLIA [id number] [address] [place] [address] Phil Franklin, DO,FCAP Arterial Blood pH 7.34 Low 7.35-7.45 [facility] Comment on above: Order Comment: Speci men Type: Unknown Relevant Clinical Information: low gluc Ordering Facility: [facility]-CLIA#[id number] Address: [address] [place] [address] Performed By: #### A BG #### [facility]-CLIA#[id number] CLIA [id number] [address] [place] [address] Phil Franklin DO,FCAP Arterial blood methemoglobin /total hemoglobinOrdered By: Christopher Santiago on 08-02-2023 Methemoglobin (BldA) [Mass fraction] 0.3 % 0.0-0.3 [facility] Arterial blood oxygen measur ementOrdered By: Christopher Santiago on 08-02-2023 Oxygen content (BldA) [Moles/Vol] 17.9 mL/dL 17-100 [facility] Arterial whole blood lactic acid measurement (moles/volume)Ordered By: Christopher Santiago on 08-02-2023 Lactate (BldA) [Moles/Vol] 0.7 mmol/L 0.5-1.6 [facility] Automated bacteria count in urine sediment (number/area)Ordered By: Helen Jovel on 08-02-2023 Bacteria Auto (Urine sed) [#/Area] None None [facility] Automated erythrocytes count in urine sediment (number/area)Ordered By: Helen Jovel on 08-02-2023 RBC Auto (Urine sed) [#/Area] 1 /HPF 0-5 [facility] Automated non-squamous epith elial cells count in urine sediment (number/area)Ordered By: Helen Jovel on 08-02-2023 Epithelial cells.non-squamous Auto (Urine sed) [#/Area] 0 /HPF 0-4 [facility] Automated urine leukocytes c ount (number/volume)Ordered By: Helen Jovel on 08-02-2023 WBC Auto (U) [#/Vol] 0 /HPF 0-4 [facility] Base excess Calc (BldA) [Mol es/Vol]Ordered By: Christopher Santiago on 08-02-2023 Base excess Calc (Bld) [Moles/Vol] -3.6000 mmol/L [facility] Basic Metabolic Panelon 07-15 Glucose [Mass/Vol] 30 mg/dL Critically low 74-106 So [facility] Comment on above: Order Comment: Speci men Type: Unknown Relevant Clinical Information: Altered mental status, hypoglycemia, hypothermia Ordering Facility: [facility]-CLIA#[id number] Address: [address] [place] [address] Performed By: #### Aislinn Worthy, CMP #### [facility]CLIA#[id number] CLIA [id number] [address] [place] [address] Phil Franklin DO,FCAP Anion gap [Moles/Vol] 11 mmol/L Normal 7-17 [facility] Comment on above: Order Comment: Speci men Type: Unknown Relevant Clinical Information: Altered mental status, hypoglycemia, hypothermia Ordering Facility: [facility]-CLIA#[id number] Address: [address] [place] [address] Performed By: #### Aislinn Worthy, CMP #### [facility]CL[facility]#[id number] CLIA [id number] [address] [place] [address] Phil Franklin DO,FCAP Calcium [Mass/Vol] 9.4 mg/dL Normal 8.3-10.6 [facility] Comment on above: Order Comment: Speci men Type: Unknown Relevant Clinical Information: Altered mental status, hypoglycemia, hypothermia Ordering Facility: [facility]-CLIA#[id number] Address: [address] [place] [address] Performed By: #### Aislinn Worthy, CMP #### [facility]#[id number] CLIA [id number] [address] [place], [place] [address] Phil Franklin, DO,FCAP Chloride [Moles/Vol] 106 mmol/L Normal 98-107 [facility] Comment on above: Order Comment: Speci men Type: Unknown Relevant Clinical Information: Altered mental status, hypoglycemia, hypothermia Ordering Facility: [facility]-CLIA#[id number] Address: [address] [place] [address] Performed By: #### Aislinn Worthy, CMP #### [facility]#[id number] CLIA [id number] [address] [place] [address] Phil Franklin, DO,FCAP CO2 [Moles/Vol] 26 mmol/L Normal 20-31 [facility] Comment on above: Order Comment: Speci men Type: Unknown Relevant Clinical Information: Altered mental status, hypoglycemia, hypothermia Ordering Facility: [facility]-CLIA#[id number] Address: [address] [place] [address] Performed By: #### Aislinn Worthy, CMP #### [facility]#[id number] CLIA [id number] [address] [place] [address] Phil Franklin, DO,FCAP Creatinine [Mass/Vol] 2.585 mg/dL High 0.70-1.30 So [facility] Comment on above: Order Comment: Speci men Type: Unknown Relevant Clinical Information: Altered mental status, hypoglycemia, hypothermia Ordering Facility: [facility]-CLIA#[id number] Address: [address] [place] [address] Performed By: #### Aislinn Worthy, CMP #### [facility]#[id number] CLIA [id number] [address] [place] [address] Phil Franklin, DO,FCAP Creatinine Clr Calc Pharmacy 32 Normal [facility] Comment on above: Order Comment: Speci men Type: Unknown Relevant Clinical Information: Altered mental status, hypoglycemia, hypothermia Ordering Facility: [facility]CLIA#[id number] Address: [address] [place] [address] Performed By: #### Aislinn Worthy, CMP #### [facility]#[id number] CLIA [id number] [address] [place] [address] Phil Franklin DO,FCAP GFR/1.73 sq M.predicted MDRD (S/P/Bld) [Vol rate/Area] 28 mL/min/{1.73_m2} [facility] Comment on above: Order Comment: Speci men Type: Unknown Relevant Clinical Information: Altered mental status, hypoglycemia, hypothermia Ordering Facility: [facility]CLIA#[id number] Address: [address] [place] [address] Result Comment: K/DO QI Guideline: Stage 1 [...] Performed By: #### Aislinn Worthy, CMP #### [facility]#[id number] CLIA [id number] [address] [place], [place] [address] Phil Franklin DO,FCAP Potassium [Moles/Vol] 4.2 mmol/L Normal 3.5-5.1 [facility] Comment on above: Order Comment: Speci men Type: Unknown Relevant Clinical Information: Altered mental status, hypoglycemia, hypothermia Ordering Facility: [facility]CLIA#[id number] Address: [address] [place] [address] Performed By: #### Aislinn G, CMP #### [facility]#[id number] CLIA [id number] [address] [place] [address] Vincrony Franklin, DO,FCAP Sodium [Moles/Vol] 139 mmol/L Normal 136-145 [facility] Comment on above: Order Comment: Speci men Type: Unknown Relevant Clinical Information: Altered mental status, hypoglycemia, hypothermia Ordering Facility: [facility]CLIA#[id number] Address: [address] [place] [address] Performed By: #### Aislinn Worthy, CMP #### [facility]#[id number] CLIA [id number] [address] [place] [address] Phil Franklin DO,FCAP Urea nitrogen [Mass/Vol] 48 mg/dL High 9-23 [facility] Comment on above: Order Comment: Speci men Type: Unknown Relevant Clinical Information: Altered mental status, hypoglycemia, hypothermia Ordering Facility: [facility]CLIA#[id number] Address: [address] [place] [address] Performed By: #### Aislinn Worthy, CMP #### [facility]#[id number] CLIA [id number] [address] [place] [address] Vincrony Franklin, DO,FCAP Basophils Auto (Bld) [#/Vol] Ordered By: Christopher Santiago on 08-02-2023 Basophils (Bld) [#/Vol] 0.04 10*3/uL 0.00-0.10 [facility] Basophils/100 WBC Auto (Bld) Ordered By: Christopher Santiago on 08-02-2023 Basophils/100 WBC (Bld) 0.3 % 0.0-1.3 [facility] Bilirubin Auto test strip Ql (U)Ordered By: Helen Jovel on 08-02-2023 Bilirubin Ql (U) Negative Negative [facility] Blood hemoglobin measurement (mass/volume)Ordered By: Christopher Santiago on 08-02-2023 Hemoglobin (Bld) [Mass/Vol] 14.0 g/dL 13.5-17.7 [facility] C Peptideon 08-02-2023 C Peptide 2.00 ng/mL Normal 0.48-5.05 [facility] Comment on above: Order Comment: Speci men Type: Unknown Relevant Clinical Information: Altered mental status, hypoglycemia, hypothermia Ordering Facility: [facility]CLIA#[id number] Address: [address] [place] [address] Performed By: #### M G, CMP #### [facility]#[id number] CLIA [id number] [address] [place] [address] Phil Franklin DO,FCAP CBC w/ Auto Diffon 3 Basophils Absolute Auto 0.04 10*3/uL Normal 0.00-0.10 [facility] Comment on above: Order Comment: Speci men Type: Unknown Relevant Clinical Information: low gluc Ordering Facility: [facility]CLIA#[id number] Address: [address] [place] [address] Performed By: #### C BC #### [facility]#[id number] CLIA [id number] [address] [place] [address] Phil Franklin DO,FCAP Basophils/100 WBC (Bld) 0.3 % Normal 0.0-1.3 S [facility] Comment on above: Order Comment: Speci men Type: Unknown Relevant Clinical Information: low gluc Ordering Facility: [facility]CLIA#[id number] Address: [address] [place] [address] Performed By: #### C BC #### [facility]#[id number] CLIA [id number] [address] [place] [address] Phil Franklin DO,FCAP Eosinophils (Bld) [#/Vol] 0.29 10*3/uL Normal 0.00-0.50 [facility] Comment on above: Order Comment: Speci men Type: Unknown Relevant Clinical Information: low gluc Ordering Facility: [facility]CLIA#[id number] Address: [address] [place] [address] Performed By: #### C BC #### [facility]#[id number] CLIA [id number] [address] [place] [address] Phil Franklin, DO,FCAP Eosinophils/100 WBC (Bld) 2.0 % Normal 0.0-5.8 [facility] Comment on above: Order Comment: Speci men Type: Unknown Relevant Clinical Information: low gluc Ordering Facility: [facility]CLIA#[id number] Address: [address] [place] [address] Performed By: #### C BC #### [facility]#[id number] CLIA [id number] [address] [place] [address] Phil Franklin, DO,FCAP Erythrocyte distribution width (RBC) [Ratio] 13.1 % Normal 11.6-14.8 [facility] Comment on above: Order Comment: Speci men Type: Unknown Relevant Clinical Information: low gluc Ordering Facility: [facility]CLIA#[id number] Address: [address] [place] [address] Performed By: #### C BC #### [facility]#[id number] CLIA [id number] [address] [place] [address] Phil Franklin, DO,FCAP Hematocrit (Bld) [Volume fraction] 40.5 % Low 41.0-53.0 [facility] Comment on above: Order Comment: Speci men Type: Unknown Relevant Clinical Information: low gluc Ordering Facility: [facility]CLIA#[id number] Address: [address] [place] [address] Performed By: #### C BC #### [facility]#[id number] CLIA [id number] [address] [place] [address] Vincent Randaisi, DO,FCAP Hemoglobin (Bld) [Mass/Vol] 14.0 g/dL Normal 13.5-17.7 [facility] Comment on above: Order Comment: Speci men Type: Unknown Relevant Clinical Information: low gluc Ordering Facility: [facility]-CLIA#[id number] Address: [address] [place] [address] Performed By: #### C BC #### [facility]#[id number] CLIA [id number] [address] [place] [address] Phil Franklin DO,FCAP Lymphocytes (Bld) [#/Vol] 0.92 10*3/uL Normal 0.80-3.30 [facility] Comment on above: Order Comment: Speci men Type: Unknown Relevant Clinical Information: low gluc Ordering Facility: [facility]CLIA#[id number] Address: [address] [place] [address] Performed By: #### C BC #### [facility]#[id number] CLIA [id number] [address] [place] [address] Phil Franklin DO,FCAP Lymphocytes/100 WBC (Bld) 6.3 % Low 13.4-45.1 [facility] Comment on above: Order Comment: Speci men Type: Unknown Relevant Clinical Information: low gluc Ordering Facility: [facility]CLIA#[id number] Address: [address] [place] [address] Performed By: #### C BC #### [facility]#[id number] CLIA [id number] [address] [place] [address] Phil Franklin DO,FCAP MCH (RBC) [Entitic mass] 31.0 pg Normal 27.2-33.0 [facility] Comment on above: Order Comment: Speci men Type: Unknown Relevant Clinical Information: low gluc Ordering Facility: [facility]CLIA#[id number] Address: [address] [place] [address] Performed By: #### C BC #### [facility]#[id number] CLIA [id number] [address] [place] [address] Phil Franklin, DO,FCAP MCHC (RBC) [Mass/Vol] 34.6 g/dL Normal 31.9-35.1 [facility] Comment on above: Order Comment: Speci men Type: Unknown Relevant Clinical Information: low gluc Ordering Facility: [facility]CLIA#[id number] Address: [address] [place] [address] Performed By: #### C BC #### [facility]#[id number] CLIA [id number] [address] [place] [address] Phil Franklin DO,FCAP MCV (RBC) [Entitic vol] 89.8 fL Normal 81.7-97.1 S [facility] Comment on above: Order Comment: Speci men Type: Unknown Relevant Clinical Information: low gluc Ordering Facility: [facility]CLIA#[id number] Address: [address] [place] [address] Performed By: #### C BC #### [facility]#[id number] CLIA [id number] [address] [place] [address] Phil Franklin DO,FCAP Monocytes (Bld) [#/Vol] 0.50 10*3/uL Normal 0.30-0.90 [facility] Comment on above: Order Comment: Speci men Type: Unknown Relevant Clinical Information: low gluc Ordering Facility: [facility]CLIA#[id number] Address: [address] [place] [address] Performed By: #### C BC #### [facility]#[id number] CLIA [id number] [address] [place] [address] Phil Franklin DO,FCAP Monocytes/100 WBC (Bld) 3.4 % Low 4.0-12.7 S [facility] Comment on above: Order Comment: Speci men Type: Unknown Relevant Clinical Information: low gluc Ordering Facility: [facility]CLIA#[id number] Address: [address] [place] [address] Performed By: #### C BC #### [facility]#[id number] CLIA [id number] [address] [place] [address] Phil Franklin DO,FCAP Neutrophils Absolute Auto 12.71 10*3/uL High 1.70-7.00 [facility] Comment on above: Order Comment: Speci men Type: Unknown Relevant Clinical Information: low gluc Ordering Facility: [facility]CLIA#[id number] Address: [address] [place] [address] Performed By: #### C BC #### [facility]#[id number] CLIA [id number] [address] [place] [address] Phil Franklin DO,FCAP Neutrophils/100 WBC (Bld) 87.4 % High 41.1-75.9 [facility] Comment on above: Order Comment: Speci men Type: Unknown Relevant Clinical Information: low gluc Ordering Facility: [facility]CLIA#[id number] Address: [address] [place] [address] Performed By: #### C BC #### [facility]#[id number] CLIA [id number] [address] [place] [address] Phil Franklin DO,FCAP Platelet mean volume (Bld) [Entitic vol] 11.4 fL Normal 8.6-12.2 [facility] Comment on above: Order Comment: Speci men Type: Unknown Relevant Clinical Information: low gluc Ordering Facility: [facility]CLIA#[id number] Address: [address] [place] [address] Performed By: #### C BC #### [facility]#[id number] CLIA [id number] [address] [place] [address] Phil Franklin DO,FCAP Platelets (Bld) [#/Vol] 285 10*3/uL Normal 133-425 [facility] Comment on above: Order Comment: Speci men Type: Unknown Relevant Clinical Information: low gluc Ordering Facility: [facility]CLIA#[id number] Address: [address] [place] [address] Performed By: #### C BC #### [facility]#[id number] CLIA [id number] [address] [place] [address] Phil Franklin DO,FCAP RBC (Bld) [#/Vol] 4.51 10*6/uL Normal 3.90-5.90 [facility] Comment on above: Order Comment: Speci men Type: Unknown Relevant Clinical Information: low gluc Ordering Facility: [facility]CLIA#[id number] Address: [address] [place] [address] Performed By: #### C BC #### [facility]#[id number] CLIA [id number] [address] [place] [address] Phil Franklin DO,FCAP WBC (Bld) [#/Vol] 14.5 10*3/uL High 4.5-11.0 [facility] Comment on above: Order Comment: Speci men Type: Unknown Relevant Clinical Information: low gluc Ordering Facility: [facility]CLIA#[id number] Address: [address] [place] [address] Performed By: #### C BC #### [facility]#[id number] CLIA [id number] [address] [place] [address] Phil Franklin DO,FCAP CO2 (BldA) [Partial pressure ]Ordered By: Christopher Santiago on 08-02-2023 CO2 (Bld) [Partial pressure] 41 mm[Hg] 32-[address] [facility] [address] biopsyOrdered By: Charo Jovel on 08-02-2023 Benzodiazepines Ql (U) Not detected None Detect [facility] Comment on above: Cutoff: 200ng/mL Cocaine Ql (U) Not detected None Detect [facility] Comment on above: Cutoff: 150ng/mL CT biopsy Not detected None Detect [facility] Comment on above: Cutoff: 200ng/mL CTHEADWOon 08-02-2023 CTHEADWO [facility] [address] [place], [place] [address] CT Scan Report Signed Patient: Chandler Minor MR#: [id number] : 1970 Acct: [id number] Age/Sex: 53 / M ADM Date: 08/02/23 Loc: ER. Attending Dr: Ordering Physician: Christopher Santiago D.O. Date of Service: Procedure(s): CT head-brain wo con Accession Number(s): [id number] cc: Christopher Santiago D.O. CT HEAD TECHNICAL: [...] Signed By: Chava Hernandez D.O. 08/02/23 0514 [id number] Normal [facility] CarboxyhemoglobinOrdered By: Christopher Santiago on 08-02-2023 Carboxyhemoglobin (Bld) [Mass/Vol] 4.1 % 0.1-2.5 [facility] Cholesterol in LDL Calc [Mas s/Vol]Ordered By: Marcelino Abel on 08-02-2023 Cholesterol in LDL [Mass/Vol] 28 mg/dL <100 [facility] Determination of inhaled oxy gen concentration (volume fraction)Ordered By: Christopher Santiaog on 08-02-2023 Inhaled oxygen concentration 21 % [facility] Direct bilirubin measurement Ordered By: Helen Jovel on 08-02-2023 Bilirubin.direct [Mass/Vol] 0.1 mg/dL 0.0-0.3 [facility] Emergency Department Noteon 08-02-2023 [place] [address] Emergency Department Note Signed Patient: Chandler Minor MR#: [id number] : 1970 Acct: [id number] Age/Sex: 53 / M Date of Service: 08/02/23 Loc: ER. Attending Dr: cc: HPI - Altered Mental [...] Unobtainable: Yes unobtainable due to mental status [facility] Medical History (Updated 08/02/23 @ 05:23 by Christopher Santiago DO) Diabetes Social History Advance Directives: No Advance Directives Information Provided: No Advance Directives on File: No Would like to be referred to Election Assistant for info?: No Smoking Status: Never smoker [...] Daniel Coma Scale Eye Opening: No response [place] coma scale verbal response: No response Daniel Coma Scale Motor Response: Withdraws in response to pain Daniel coma scale total score: 6 Sensorium/orientation: lethargic [...] Vital S (more content not included)... Normal [facility] Eosinophils Auto (Bld) [#/Vo l]Ordered By: Christopher Santiago on 08-02-2023 Eosinophils (Bld) [#/Vol] 0.29 10*3/uL 0.00-0.50 [facility] Eosinophils/100 WBC Auto (Bl d)Ordered By: Christopher Santiago on 08-02-2023 Eosinophils/100 WBC (Bld) 2.0 % 0.0-5.8 [facility] Erythrocyte distribution wid th Auto (RBC) [Ratio]Ordered By: Christopher Santiago on 08-02-2023 Erythrocyte distribution width (RBC) [Ratio] 13.1 % 11.6-14.8 [facility] Free T4on 08-02-2023 Free T4 [Mass/Vol] 1.16 ng/dL Normal 0.89-1.[address] [facility] Comment on above: Order Comment: Speci men Type: Unknown Relevant Clinical Information: Altered mental status, hypoglycemia, hypothermia Ordering Facility: [facility] Address: , , Performed By: #### G LUCOMETER #### [facility] Glomerular filtration rate ( GFR) estimation/1.73 sq m using creatinine measurement wiOrdered By: Christopher Santiago on 08-02-2023 GFR/1.73 sq M.predicted CKD-EPI (S/P/Bld) [Vol rate/Area] 28 mL/min >60 [facility] Comment on above: K/DOQI Guideline:Sta ge [...] [Mass/Vol] 240 mg/dL High 70-[address] [facility] Comment on above: Order Comment: Speci men Type: Unknown Relevant Clinical Information: Altered mental status, hypoglycemia, hypothermia Ordering Facility: [facility]CLIA#[id number] Address: [address] [place] [address] Performed By: #### M G, CMP #### [facility]#[id number] CLIA [id number] [address] [place] [address] Phil Franklin DO,FCAP Glucose [Mass/Vol] 110 mg/dL Normal 70-110 [facility] Comment on above: Order Comment: Speci men Type: Unknown Relevant Clinical Information: Altered mental status, hypoglycemia, hypothermia Ordering Facility: [facility]CLIA#[id number] Address: [address] [place] [address] Performed By: #### M Deacon, CMP #### [facility]#[id number] CLIA [id number] [address] [place] [address] Vincent Randaisi, DO,FCAP Glucose [Mass/Vol] 117 mg/dL High 70-110 [facility] Comment on above: Order Comment: Speci men Type: Unknown Relevant Clinical Information: Altered mental status, hypoglycemia, hypothermia Ordering Facility: [facility]CLIA#[id number] Address: [address] [place] [address] Performed By: #### M Deacon, CMP #### [facility]#[id number] CLIA [id number] [address] [place] [address] Phil Luceroaisi, DO,FCAP Glucose [Mass/Vol] 124 mg/dL High 70-110 [facility] Comment on above: Order Comment: Speci men Type: Unknown Relevant Clinical Information: Altered mental status, hypoglycemia, hypothermia Ordering Facility: [facility] Address: , , Performed By: #### G LUCOMETER #### [facility] Glucose [Mass/Vol] 105 mg/dL Normal 70-110 [facility] Comment on above: Order Comment: Speci men Type: Unknown Relevant Clinical Information: Altered mental status, hypoglycemia, hypothermia Ordering Facility: [facility]CLIA#[id number] Address: [address] [place] [address] Performed By: #### M G, CMP #### [facility]#[id number] CLIA [id number] [address] [place] [address] Vincent Randaisi, DO,FCAP Glucose [Mass/Vol] 102 mg/dL Normal 70-110 [facility] Comment on above: Order Comment: Speci men Type: Unknown Relevant Clinical Information: Altered mental status, hypoglycemia, hypothermia Ordering Facility: [facility]CLIA#[id number] Address: [address] [place] [address] Performed By: #### M Deacon, CMP #### [facility]#[id number] CLIA [id number] [address] [place] [address] Vincrony Randaisi, DO,FCAP Glucose [Mass/Vol] 97 mg/dL Normal 70-110 [facility] Comment on above: Order Comment: Speci men Type: Unknown Relevant Clinical Information: Altered mental status, hypoglycemia, hypothermia Ordering Facility: [facility]CLIA#[id number] Address: [address] [place] [address] Performed By: #### Aislinn Worthy, CMP #### [facility]#[id number] CLIA [id number] [address] [place] [address] Phil Randaisi, DO,FCAP Glucose [Mass/Vol] 96 mg/dL Normal 70-110 [facility] Comment on above: Order Comment: Speci men Type: Unknown Relevant Clinical Information: Altered mental status, hypoglycemia, hypothermia Ordering Facility: [facility]#[id number] Address: [address] [place] [address] Performed By: #### Aislinn Worthy, CMP #### [facility]#[id number] CLIA [id number] [address] [place] [address] Vincrony Randaisi, DO,FCAP Glucose [Mass/Vol] 111 mg/dL High 70-110 [facility] Comment on above: Order Comment: Speci men Type: Unknown Relevant Clinical Information: Altered mental status, hypoglycemia, hypothermia Ordering Facility: [facility]CLIA#[id number] Address: [address] [place] [address] Performed By: #### Aislinn Worthy, CMP #### [facility]#[id number] CLIA [id number] [address] [place] [address] Florarony Noemi, DO,FCAP Glucose [Mass/Vol] 156 mg/dL High 70-110 Dori [facility] Comment on above: Order Comment: Speci men Type: Unknown Relevant Clinical Information: Altered mental status, hypoglycemia, hypothermia Ordering Facility: [facility] Address: , , Performed By: #### G LUCOMETER #### [facility] Glucose [Mass/Vol] 55 mg/dL Low 70-110 Dori [facility] Comment on above: Order Comment: Speci men Type: Unknown Relevant Clinical Information: low gluc Ordering Facility: [facility] Address: , , Performed By: #### G LUCOMETER #### [facility] Glucose (Bld) [Mass/Vol]Orde red By: Christopher Santiago on 08-02-2023 Glucose [Mass/Vol] 39 mg/dL 70-110 Dori [facility] Glucose Glucometer (BldC) [M ass/Vol]Ordered By: Christopher Santiago on 08-02-2023 Glucose [Mass/Vol] 102 mg/dL 70-110 [facility] HCO3 (BldA) [Moles/Vol]Order ed By: Christopher Santiago on 08-02-2023 HCO3 (Bld) [Moles/Vol] 22 mmol/L 22-[address] [facility] Hematocrit Auto (Bld) [Volum e fraction]Ordered By: Christopher Santiago on 08-02-2023 Hematocrit (Bld) [Volume fraction] 40.5 % 41.0-53.0 [facility] Hemoglobin A1Con 08-02-2023 HbA1c (Bld) [Mass fraction] 12.0 % High <5.7 [facility] Comment on above: Order Comment: Speci men Type: Unknown Relevant Clinical Information: Altered mental status, hypoglycemia, hypothermia Ordering Facility: [facility] Address: , , Result Comment: Expe cted Values Suggested Diagnosis Diabetic >=6.5 (%) Prediabetes 5.7-6.4 (%) Normal <5.7 (%) Performed By: #### G LUCOMETER #### [facility]OC Hemoglobin A1c percentageOrd ered By: Helen Jovel on 08-02-2023 HbA1c (Bld) [Mass fraction] 12.0 % 0-5.6 [facility] Comment on above: Expected ValuesSumindy steitz Diagnosis Diabetic >=6.5 (%)Prediabetes 5.7-6.4 (%)Normal <5.7 (%) Hemoglobin Oximetry (BldA) [ Mass/Vol]Ordered By: Christopher Santiago on 08-02-2023 Hemoglobin (Bld) [Mass/Vol] 14.0 g/dL 12.2-18.1 [facility] Hepatic Function Panelon Albumin [Mass/Vol] 3.1 g/dL Low 3.4-5.0 [facility] Comment on above: Order Comment: Speci men Type: Unknown Relevant Clinical Information: Altered mental status, hypoglycemia, hypothermia Ordering Facility: [facility] Address: , , Performed By: #### G LUCOMETER #### POC ALP [Catalytic activity/Vol] 100 U/L Normal 46-116 [facility] Comment on above: Order Comment: Speci men Type: Unknown Relevant Clinical Information: Altered mental status, hypoglycemia, hypothermia Ordering Facility: [facility] Address: , , Performed By: #### G LUCOMETER #### POC ALT [Catalytic activity/Vol] 14 U/L Normal 10-49 [facility] Comment on above: Order Comment: Speci men Type: Unknown Relevant Clinical Information: Altered mental status, hypoglycemia, hypothermia Ordering Facility: [facility] Address: , , Performed By: #### G LUCOMETER #### POC AST [Catalytic activity/Vol] 18 U/L Normal <34 [facility] Comment on above: Order Comment: Speci men Type: Unknown Relevant Clinical Information: Altered mental status, hypoglycemia, hypothermia Ordering Facility: [facility] Address: , , Performed By: #### G LUCOMETER #### [facility] Bilirubin [Mass/Vol] 0.4 mg/dL Normal 0.3-1.2 [facility] Comment on above: Order Comment: Speci men Type: Unknown Relevant Clinical Information: Altered mental status, hypoglycemia, hypothermia Ordering Facility: [facility] Address: , , Performed By: #### G LUCOMETER #### [facility]OC Bilirubin.indirect [Mass/Vol] 0.1 mg/dL Normal <0.4 [facility] Comment on above: Order Comment: Speci men Type: Unknown Relevant Clinical Information: Altered mental status, hypoglycemia, hypothermia Ordering Facility: [facility] Address: , , Performed By: #### G LUCOMETER #### POC Protein [Mass/Vol] 6.0 g/dL Normal 5.7-8.2 [facility] Comment on above: Order Comment: Speci men Type: Unknown Relevant Clinical Information: Altered mental status, hypoglycemia, hypothermia Ordering Facility: [facility] Address: , , Performed By: #### G LUCOMETER #### [facility]OC Hyaline casts detection in u rine sediment by light microscopyOrdered By: Helen Jovel on 08-02-2023 Hyaline casts LM Ql (Urine sed) 6 /LPF 0-5 [facility] Internal Med History Physica velasquez 08-02-2023 Internal Med History Physical [facility] [place] [address] Internal Med History Physical Signed Patient: Chandler Minor MR#: [id number] : 1970 Acct: [id number] Age/Sex: 53 / M Date of Service: 08/02/23 Loc: [facility] [[email or web address]] 4828-[address]: Helen Jovel M.D. cc: [...] micturition. Patient reports that he came to [place] to see his mom. Patient reports chronic [...] No Would like to be referred to Election Assistant for info?: No Smoking Status: Current every [...] ORAL PM (more content not included)... Normal [facility] Ketones Auto test strip (U) [Mass/Vol]Ordered By: Helen Jovel on 08-02-2023 Ketones (U) [Mass/Vol] Negative Negative So [facility] Laboratory - Chemistry and C hemistry - challengeOrdered By: Christopher Santiago on 08-02-2023 Anion gap [Moles/Vol] 11 mmol/L 7-17 Gaur[facility] Lipid Panelon 08-02-2023 Cholesterol [Mass/Vol] 89 mg/dL Normal <200 So [facility] Comment on above: Order Comment: Speci men Type: Unknown Relevant Clinical Information: Altered mental status, hypoglycemia, hypothermia Ordering Facility: [facility] Lab-CLIA#[id number] Address: [address] [place] [address] Performed By: #### L IPID #### [facility] Lab-CLIA#[id number] CLIA [id number] [address] [place] [address] Vincent Randaisi, DO,FCAP Cholesterol in HDL [Mass/Vol] 32 mg/dL Low 40-60 [facility] Comment on above: Order Comment: Speci men Type: Unknown Relevant Clinical Information: Altered mental status, hypoglycemia, hypothermia Ordering Facility: [facility] Lab-CLIA#[id number] Address: [address] [place] [address] Performed By: #### L IPID #### [facility] Lab-CLIA#[id number] CLIA [id number] [address] [place] [address] Vincrony Dialsi, DO,FCAP Cholesterol in LDL [Mass/Vol] 28 mg/dL Normal <100 [facility] Comment on above: Order Comment: Speci men Type: Unknown Relevant Clinical Information: Altered mental status, hypoglycemia, hypothermia Ordering Facility: [facility] Lab-CLIA#[id number] Address: [address] [place] [address] Performed By: #### L IPID #### [facility] Lab-CLIA#[id number] CLIA [id number] [address] [place] [address] Vincent Randaisi, DO,FCAP Triglyceride [Mass/Vol] 143 mg/dL Normal <149 S [facility] Comment on above: Order Comment: Speci men Type: Unknown Relevant Clinical Information: Altered mental status, hypoglycemia, hypothermia Ordering Facility: [facility] Lab-CLIA#[id number] Address: [address] [place] [address] Performed By: #### L IPID #### [facility] Lab-CLIA#[id number] CLIA [id number] [address] [place] [address] Vincent Randaisi, DO,FCAP Lymphocytes/100 WBC Auto (Bl d)Ordered By: Christopher Santiago on 08-02-2023 Lymphocytes/100 WBC (Bld) 6.3 % 13.4-45.1 [facility] MCH Auto (RBC) [Entitic mass ]Ordered By: Christopher Santiago on 08-02-2023 MCH (RBC) [Entitic mass] 31.0 pg 27.2-33.0 [facility] MCHC Auto (RBC) [Mass/Vol]Or dered By: Christopher Santiago on 08-02-2023 MCHC (RBC) [Mass/Vol] 34.6 g/dL 31.9-35.1 [facility] MCV (mean corpuscular volume ) determinationOrdered By: Christopher Santiago on 08-02-2023 MCV (RBC) [Entitic vol] 89.8 fL 81.7-97.1 [facility] Monocytes Auto (Bld) [#/Vol] Ordered By: Christopher Santiago on 08-02-2023 Monocytes (Bld) [#/Vol] 0.50 10*3/uL 0.30-0.90 [facility] Monocytes/100 WBC Auto (Bld) Ordered By: Christopher Santiago on 08-02-2023 Monocytes/100 WBC (Bld) 3.4 % 4.0-12.7 [facility] Neurology Consult [place] [address] Neurology Consult Note Signed Patient: Chandler Minor MR#: [id number] : 1970 Acct: [id number] Age/Sex: 53 / M Date of Service: 08/02/23 Loc: [facility] [[email or web address]] 4828-[address]: Helen Jovel M.D. cc: [...] No Would like to be referred to Election Assistant for info?: No Smoking Status: Current every [...] (Jardiance) ergoc (more content not included)... Normal [facility] Neutrophils Auto (Bld) [#/Vo l]Ordered By: Christopher Santiago on 08-02-2023 Neutrophils (Bld) [#/Vol] 12.71 10*3/uL 1.70-7.00 [facility] Neutrophils/100 WBC Auto (Bl d)Ordered By: Christopher Santigao on 08-02-2023 Neutrophils/100 WBC (Bld) 87.4 % 41.1-75.9 [facility] No Panel InformationOrdered By: Helen Jovel on 08-02-2023 Urine Drug Screen Comment. See comment [facility] Comment on above: This method provides [...] on 08-02-2023 Pharmacy Creatinine Clearance (Chem 32 [facility] Oxygen (BldA) [Partial press ure]Ordered By: Christopher Santiago on 08-02-2023 Oxygen (Bld) [Partial pressure] 82.2 mm[Hg] 80-110 [facility] Platelet mean volume Auto (B ld) [Entitic vol]Ordered By: Christopher Santiago on 08-02-2023 Platelet mean volume (Bld) [Entitic vol] 11.4 fL 8.6-12.2 [facility] Platelets Auto (Bld) [#/Vol] Ordered By: Christopher Santiago on 08-02-2023 Platelets (Bld) [#/Vol] 285 10*3/uL 133-425 [facility] Potassium (Bld) [Moles/Vol]O rdered By: Christopher Santiago on 08-02-2023 Potassium [Moles/Vol] 4.5 mmol/L 3.5-5.1 [facility] Procalcitoninon 08-02-2023 Procalcitonin 0.11 ng/mL Normal <0.10 [facility] Comment on above: Order Comment: Speci men [...] underlying bacterial infection difficult to establish. Reference: Camryn Narvaez, et al. 2009. Effect of procalcitonin-based guidelines vs standard guidelines on antibiotic use in lower respiratory tract infections. The ProHOSP Randomized Controlled Trial. LAMAR 302: 58463 - 1066. Performed By: #### G LUCOMETER #### [facility] Protein Auto test strip (U) [Mass/Vol]Ordered By: Helen Jovel on 08-02-2023 Protein (U) [Mass/Vol] 300 mg/dL Negative So [facility] RBC Auto (Bld) [#/Vol]Ordere d By: Christopher Santiago on 08-02-2023 RBC (Bld) [#/Vol] 4.51 10*6/uL 3.90-5.90 [facility] Screening urine 6-acetylmorp dirk measurementOrdered By: Helen Jovel on 08-02-2023 6-Monoacetylmorphine (6-ELTON) Screen Ql (U) Not detected None Detect [facility] Comment on above: Cutoff: 10ng/mL Screening urine cannabinoids detection using 50 ng/mL cutoffOrdered By: Helen Jovel on 08-02-2023 Tetrahydrocannabinol Screen method >50 ng/mL Ql (U) Not detected None Detect [facility] Comment on above: Cutoff: 50ng/mL Screening urine opiates test Ordered By: Helen Jovel on 08-02-2023 Opiates Screen Ql (U) Not detected None Detect [facility] Comment on above: Cutoff: 300ng/mL Serum or plasma C peptide me asurement (mass/volume)Ordered By: Helen Jovel on 08-02-2023 C peptide [Mass/Vol] 2.00 ng/mL 0.48-5.05 [facility] Serum or plasma alanine walton otransferase measurement with P-5'-P (enzymatic activity/Ordered By: Helen Jovel on 08-02-2023 ALT With P-5'-P [Catalytic activity/Vol] 14 U/L 10-49 [facility] Serum or plasma albumin reig urement by bromocresol purple (BCP) dye binding method (mOrdered By: Helen Jovel on 08-02-2023 Albumin BCP dye [Mass/Vol] 3.1 g/dL 3.4-5.0 [facility] Serum or plasma alkaline mari sphatase measurement (enzymatic activity/volume)Ordered By: Helen Jovel on 08-02-2023 ALP [Catalytic activity/Vol] 100 U/L 46-116 [facility] Serum or plasma aspartate am inotransferase measurement with P-5'-P (enzymatic activitOrdered By: Helen Jovel on 08-02-2023 AST With P-5'-P [Catalytic activity/Vol] 18 U/L 0-33 [facility] Serum or plasma calcium regi urement (mass/volume)Ordered By: Christopher Santiago on 08-02-2023 Calcium [Mass/Vol] 9.4 mg/dL 8.3-10.6 [facility] Serum or plasma chloride taryn surement (moles/volume)Ordered By: Christopher Santiago on 08-02-2023 Chloride [Moles/Vol] 106 mmol/L 98-107 [facility] Serum or plasma cholesterol measurement (mass/volume)Ordered By: Marcelino Abel on 08-02-2023 Cholesterol [Mass/Vol] 89 mg/dL 0-[address] [facility] Serum or plasma creatinine m easurement (mass/volume)Ordered By: Christopher Santiago on 08-02-2023 Creatinine [Mass/Vol] 2.585 mg/dL 0.70-1.[address] [facility] Serum or plasma free thyroxi ne (FT4) measurement (mass/volume)Ordered By: Helen Jovel on 08-02-2023 Free T4 [Mass/Vol] 1.16 ng/dL 0.89-1.76 [facility] Serum or plasma glucose regi urement (mass/volume)Ordered By: Christopher Santiago on 08-02-2023 Glucose [Mass/Vol] 30 mg/dL 74-106 [facility] Serum or plasma high density lipoprotein (HDL) cholesterol measurementOrdered By: Marcelino Abel on 08-02-2023 Cholesterol in HDL [Mass/Vol] 32 mg/dL 40-60 [facility] Serum or plasma potassium me asurement (moles/volume)Ordered By: Christopher Santiago on 08-02-2023 Potassium [Moles/Vol] 4.2 mmol/L 3.5-5.1 [facility] Serum or plasma sodium measu rement (moles/volume)Ordered By: Christopher Santiago on 08-02-2023 Sodium [Moles/Vol] 139 mmol/L 136-145 [facility] Serum or plasma total biliru bin measurement (mass/volume)Ordered By: Helen Jovel on 08-02-2023 Bilirubin [Mass/Vol] 0.4 mg/dL 0.3-1.2 [facility] Serum or plasma total carbon dioxide measurement (moles/volume)Ordered By: Christopher Santiago on 08-02-2023 CO2 [Moles/Vol] 26 mmol/L - [facility] Serum or plasma triglyceride measurement (mass/volume)Ordered By: Marcelino Abel on 08-02-2023 Triglyceride [Mass/Vol] 143 mg/dL <149 [facility] Serum or plasma urea nitroge n measurement (mass/volume)Ordered By: Christopher Santiago on 08-02-2023 Urea nitrogen [Mass/Vol] 48 mg/dL - [facility] Serum procalcitonin measurem entOrdered By: Helen Jovel on 08-02-2023 Procalcitonin [Mass/Vol] 0.11 ng/mL <0.10 [facility] Comment on above: *Use of Procalcitoni [...] The ProHOSP Randomized Controlled Trial. LAMAR 302: 58960 - 1066. Serum total protein measurem ent (mass/volume)Ordered By: Helen Jovel on 08-02-2023 Protein [Mass/Vol] 6.0 g/dL 5.7-8.2 [facility] Sodium (Bld) [Moles/Vol]Orde red By: Christopher Santiago on 08-02-2023 Sodium [Moles/Vol] 139 mmol/L 136-145 [facility] TSHon 08-02-2023 TSH Qn 1.144 m[IU]/L Normal 0.550-4.78 0 [facility] Comment on above: Order Comment: Speci men Type: Unknown Relevant Clinical Information: Altered mental status, hypoglycemia, hypothermia Ordering Facility: [facility] Address: , , Performed By: #### G LUCOMETER #### POC TSH DL <= 0.005 mIU/L QnOrde red By: Helen Jovel on 08-02-2023 TSH Qn 1.144 m[IU]/L 0.550-4.78 0 [facility] UA Reflex to Micro and Cultu reon 08-02-2023 Appearance (U) Clear Normal Clear [facility] Comment on above: Order Comment: Speci men Type: Unknown Relevant Clinical Information: Altered mental status, hypoglycemia, hypothermia Ordering Facility: [facility] Lab-CLIA#[id number] Address: [address] [place] [address] Performed By: #### M G, CMP #### [facility] Lab-CLIA#[id number] CLIA [id number] [address] [place] [address] Phil Franklin, DO,FCAP Bilirubin Urine Negative Normal Negative [facility] Comment on above: Order Comment: Speci men Type: Unknown Relevant Clinical Information: Altered mental status, hypoglycemia, hypothermia Ordering Facility: [facility] Lab-CLIA#[id number] Address: [address] [place] [address] Performed By: #### M G, CMP #### [facility] Lab-CLIA#[id number] CLIA [id number] [address] [place] [address] Phil Franklin DO,FCAP Blood Urine Trace Abnormal Negative [facility] Comment on above: Order Comment: Speci men Type: Unknown Relevant Clinical Information: Altered mental status, hypoglycemia, hypothermia Ordering Facility: [facility] Lab-CLIA#[id number] Address: [address] [place] [address] Performed By: #### M Deacon, CMP #### [facility] Lab-CLIA#[id number] CLIA [id number] [address] [place] [address] Phil Franklin DO,FCAP Color (U) Yellow Normal Yellow [facility] Comment on above: Order Comment: Speci men Type: Unknown Relevant Clinical Information: Altered mental status, hypoglycemia, hypothermia Ordering Facility: [facility] Lab-CLIA#[id number] Address: [address] [place] [address] Performed By: #### M G, CMP #### [facility] Lab-CLIA#[id number] CLIA [id number] [address] [place] [address] Phil Franklin DO,FCAP Glucose Urine UA 500 mg/dL Abnormal Negative [facility] Comment on above: Order Comment: Speci men Type: Unknown Relevant Clinical Information: Altered mental status, hypoglycemia, hypothermia Ordering Facility: [facility] Lab-CLIA#[id number] Address: [address] [place] [address] Performed By: #### M G, CMP #### [facility] Lab-CLIA#[id number] CLIA [id number] [address] [place] [address] Phil Franklin, DO,FCAP Ketones Ql (U) Negative Normal Negative [facility] Comment on above: Order Comment: Speci men Type: Unknown Relevant Clinical Information: Altered mental status, hypoglycemia, hypothermia Ordering Facility: [facility] Lab-CLIA#[id number] Address: [address] [place] [address] Performed By: #### M Deacon, CMP #### [facility] Lab-CLIA#[id number] CLIA [id number] [address] [place] [address] Phil Franklin, DO,FCAP Leukocyte Esterase Ur Negative Normal Negative [facility] Comment on above: Order Comment: Speci men Type: Unknown Relevant Clinical Information: Altered mental status, hypoglycemia, hypothermia Ordering Facility: [facility] Lab-CLIA#[id number] Address: [address] [place] [address] Performed By: #### M Deacon, CMP #### [facility] Lab-CLIA#[id number] CLIA [id number] [address] [place] [address] Phil Franklin, DO,FCAP Nitrite Urine Negative Normal Negative [facility] Comment on above: Order Comment: Speci men Type: Unknown Relevant Clinical Information: Altered mental status, hypoglycemia, hypothermia Ordering Facility: [facility] Lab-CLIA#[id number] Address: [address] [place] [address] Performed By: #### Aislinn Worthy, CMP #### [facility] Lab-CLIA#[id number] CLIA [id number] [address] [place] [address] Phil Franklin, DO,FCAP pH (U) 5.0 [pH] Normal <=7.5 [facility] Comment on above: Order Comment: Speci men Type: Unknown Relevant Clinical Information: Altered mental status, hypoglycemia, hypothermia Ordering Facility: [facility] Lab-CLIA#[id number] Address: [address] [place] [address] Performed By: #### M Deacon, CMP #### [facility] Lab-CLIA#[id number] CLIA [id number] [address] [place] [address] Phil Franklin DO,FCAP Protein Urine 300 Abnormal Negative [facility] Comment on above: Order Comment: Speci men Type: Unknown Relevant Clinical Information: Altered mental status, hypoglycemia, hypothermia Ordering Facility: [facility] Lab-CLIA#[id number] Address: [address] [place] [address] Performed By: #### Aislinn Worthy, CMP #### [facility] Lab-CLIA#[id number] CLIA [id number] [address] [place] [address] Phil Franklin DO,FCAP Specific [place] Ur 1.015 Normal 1.005-1. 02 5 [facility] Comment on above: Order Comment: Speci men Type: Unknown Relevant Clinical Information: Altered mental status, hypoglycemia, hypothermia Ordering Facility: [facility] Lab-CLIA#[id number] Address: [address] [place] [address] Performed By: #### Aislinn Worthy, CMP #### [facility] Lab-CLIA#[id number] CLIA [id number] [address] [place] [address] Phil Franklin DO,FCAP Urine Type Clean Catch Normal [facility] Comment on above: Order Comment: Speci men Type: Unknown Relevant Clinical Information: Altered mental status, hypoglycemia, hypothermia Ordering Facility: [facility] Lab-CLIA#[id number] Address: [address] [place] [address] Performed By: #### Aislinn Worthy, CMP #### [facility] Lab-CLIA#[id number] CLIA [id number] [address] [place] [address] Phil Franklin DO,FCAP Urobilinogen Urine 0.2 E.U./dL Normal 0-2.0 [facility] Comment on above: Order Comment: Speci men Type: Unknown Relevant Clinical Information: Altered mental status, hypoglycemia, hypothermia Ordering Facility: [facility] Lab-CLIA#[id number] Address: [address] [place] [address] Performed By: #### M G, CMP #### [facility] Lab-CLIA#[id number] CLIA [id number] [address] [place] [address] Phil Franklin DO, FCAP USRNLMTon 08-02-2023 [place] [address] Ultrasound Report Signed Patient: Chandler Minor MR#: [id number] : 1970 Acct: [id number] Age/Sex: 53 / M ADM Date: 08/02/23 Loc: [facility] [[email or web address]] 4828-[address]: Helen Jovel M.D. Ordering Physician: Helen Jovel M.D. Date of Service: Procedure(s): US renal limited retroper Accession Number(s): [id number] cc: Helen Jovel M.D. RENAL ULTRASOUND TECHNIQUE: [...] By: Jorge A Yang D.O. 08/02/23 1244 [id number] Normal [facility] Urine Drug Screen of Abuseon 08-02-2023 Amphetamine Screen Ur Not detected Normal None Detect [facility] Comment on above: Order Comment: Speci men Type: Unknown Relevant Clinical Information: Altered mental status, hypoglycemia, hypothermia Ordering Facility: [facility] Address: , , Result Comment: Cuto ff: 500ng/mL Performed By: #### G LUCOMETER #### POC Barbiturate Screen Ur Not detected Normal None Detect [facility] Comment on above: Order Comment: Speci men Type: Unknown Relevant Clinical Information: Altered mental status, hypoglycemia, hypothermia Ordering Facility: [facility] Address: , , Result Comment: Cuto ff: 200ng/mL Performed By: #### G LUCOMETER #### POC Benzodiazepines Screen Ur Not detected Normal None Detect [facility] Comment on above: Order Comment: Speci men Type: Unknown Relevant Clinical Information: Altered mental status, hypoglycemia, hypothermia Ordering Facility: [facility] Address: , , Result Comment: Cuto ff: 200ng/mL Performed By: #### G LUCOMETER #### POC Buprenorphine Screen Ur Not detected Normal None Detect [facility] Comment on above: Order Comment: Speci men Type: Unknown Relevant Clinical Information: Altered mental status, hypoglycemia, hypothermia Ordering Facility: [facility] Address: , , Result Comment: Cuto ff: 5ng/mL Performed By: #### G LUCOMETER #### POC Cannabinoid Screen Urine Not detected Normal None Detect [facility] Comment on above: Order Comment: Speci men Type: Unknown Relevant Clinical Information: Altered mental status, hypoglycemia, hypothermia Ordering Facility: [facility] Address: , , Result Comment: Cuto ff: 50ng/mL Performed By: #### G LUCOMETER #### [facility] Cocaine Screen Ur Not detected Normal None Detect [facility] Comment on above: Order Comment: Speci men Type: Unknown Relevant Clinical Information: Altered mental status, hypoglycemia, hypothermia Ordering Facility: [facility] Address: , , Result Comment: Cuto ff: 150ng/mL Performed By: #### G LUCOMETER #### [facility] Fentanyl Screen Ur Not detected Normal None Detect [facility] Comment on above: Order Comment: Speci men Type: Unknown Relevant Clinical Information: Altered mental status, hypoglycemia, hypothermia Ordering Facility: [facility] Address: , , Result Comment: Cuto ff: 1.0 ng/mL Quinine and Quinidine may interfere with Fentanyl screening. Performed By: #### G LUCOMETER #### [facility] Heroin (6-AM) Screen Ur Not detected Normal None Detect [facility] Comment on above: Order Comment: Speci men Type: Unknown Relevant Clinical Information: Altered mental status, hypoglycemia, hypothermia Ordering Facility: [facility] Address: , , Result Comment: Cuto ff: 10ng/mL Performed By: #### G LUCOMETER #### [facility] Methadone Screen Ur Not detected Normal None Detect [facility] Comment on above: Order Comment: Speci men Type: Unknown Relevant Clinical Information: Altered mental status, hypoglycemia, hypothermia Ordering Facility: [facility] Address: , , Result Comment: Cuto ff: 150ng/mL Performed By: #### G LUCOMETER #### [facility] Opiate Screen Ur Not detected Normal None Detect [facility] Comment on above: Order Comment: Speci men Type: Unknown Relevant Clinical Information: Altered mental status, hypoglycemia, hypothermia Ordering Facility: [facility] Address: , , Result Comment: Cuto ff: 300ng/mL Performed By: #### G LUCOMETER #### [facility] Oxycodone Screen Ur Not detected Normal None Detect [facility] Comment on above: Order Comment: Speci men Type: Unknown Relevant Clinical Information: Altered mental status, hypoglycemia, hypothermia Ordering Facility: [facility] Address: , , Result Comment: Cuto ff: 100ng/mL Performed By: #### G LUCOMETER #### [facility] Urine Drug Message Normal [facility] Comment on above: Order Comment: Speci [...] Hyaline Casts Urine 6 /LPF High 0-5 [facility] Comment on above: Order Comment: Speci men Type: Unknown Relevant Clinical Information: Altered mental status, hypoglycemia, hypothermia Ordering Facility: [facility] Lab-CLIA#[id number] Address: [address] [place] [address] Performed By: #### M G, CMP #### [facility] Lab-CLIA#[id number] CLIA [id number] [address] [place] [address] Vincrony Franklin, DO,FCAP RBC LM.HPF (Urine sed) [#/Area] 1 /[HPF] Normal 0-5 [facility] Comment on above: Order Comment: Speci men Type: Unknown Relevant Clinical Information: Altered mental status, hypoglycemia, hypothermia Ordering Facility: [facility] Lab-CLIA#[id number] Address: [address] [place] [address] Performed By: #### Aislinn G, CMP #### [facility] Lab-CLIA#[id number] CLIA [id number] [address] [place] [address] Phil Franklin, DO,FCAP Squamous Epithelial Cell Urine 0 /HPF Normal 0-4 [facility] Comment on above: Order Comment: Speci men Type: Unknown Relevant Clinical Information: Altered mental status, hypoglycemia, hypothermia Ordering Facility: [facility] Lab-CLIA#[id number] Address: [address] [place] [address] Performed By: #### Aislinn Worthy, CMP #### [facility] Lab-CLIA#[id number] CLIA [id number] [address] [place] [address] Phil Franklin, DO,FCAP Urine Bacteria None Normal None [facility] Comment on above: Order Comment: Speci men Type: Unknown Relevant Clinical Information: Altered mental status, hypoglycemia, hypothermia Ordering Facility: [facility] Lab-CLIA#[id number] Address: [address] [place] [address] Performed By: #### M G, CMP #### [facility] Lab-CLIA#[id number] CLIA [id number] [address] [place] [address] Vincrony Franklin, DO,FCAP WBC LM.HPF (Urine sed) [#/Area] 0 /[HPF] Normal 0-4 [facility] Comment on above: Order Comment: Speci men Type: Unknown Relevant Clinical Information: Altered mental status, hypoglycemia, hypothermia Ordering Facility: [facility] Lab-CLIA#[id number] Address: [address] [place] [address] Performed By: #### M G, CMP #### [facility] Lab-CLIA#[id number] CLIA [id number] [address] [place], [place] [id number] Phil Franklin DO, FCAP Urine blood detectionOrdered By: Helen Jovel on 08-02-2023 RBC Ql (U) Trace Negative [facility] Urine buprenorphine screenOr dered By: Helen Jovel on 08-02-2023 Buprenorphine Screen Ql (U) Not detected None Detect [facility] Comment on above: Cutoff: 5ng/mL Urine colorOrdered By: Vicente Jovel on 08-02-2023 Color (U) Yellow Yellow [facility] Urine fentanyl detection by screening methodOrdered By: Helen Jovel on 08-02-2023 fentaNYL Screen Ql (U) Not detected None Detect [facility] Comment on above: Cutoff: 1.0 ng/mLQui nine and Quinidine may interfere with Fentanyl screening. Urine glucose measurement by automated test strip (mass/volume)Ordered By: Helen Jovel on 08-02-2023 Glucose Auto test strip (U) [Mass/Vol] 500 mg/dL Negative [facility] Urine leukocyte esterase det ection by automated test stripOrdered By: Helen Jovel on 08-02-2023 Leukocyte esterase Auto test strip Ql (U) Negative Negative [facility] Urine methadone screenOrdere d By: Helen Jovel on 08-02-2023 Methadone Screen Ql (U) Not detected None Detect [facility] Comment on above: Cutoff: 150ng/mL Urine nitrite detection by a utomated test stripOrdered By: Helen Jovel on 08-02-2023 Nitrite Auto test strip Ql (U) Negative Negative [facility] Urine pHOrdered By: Helen Jovel on 08-02-2023 pH (U) 5.0 [pH] 0-7.5 [facility] Urine specific gravity measu rementOrdered By: Helen Jovel on 08-02-2023 Specific gravity (U) [Rel density] 1.015 1.005-1.02 5 [facility] Urine urobilinogen measureme ntOrdered By: Helen Jovel on 08-02-2023 Urobilinogen Ql (U) 0.2 E.U./dL 0-2.0 [facility] WBC Auto (Bld) [#/Vol]Ordere d By: Christopher Santiago on 08-02-2023 WBC (Bld) [#/Vol] 14.5 10*3/uL 4.5-11.0 [facility] Whole blood ionized calcium measurement adjusted to pH 7.4 (moles/volume)Ordered By: Christopher Santiago on 08-02-2023 Calcium.ionized adjusted to pH 7.4 (Bld) [Moles/Vol] 1.19 mmol/L 1.01-1.33 [facility] [id number] 08-02-2023 [id number] [place] [address] XRay Report Signed Patient: Chandler Minor MR#: [id number] 02 : 1970 Acct: [id number] Age/Sex: 53 / M ADM Date: 08/02/23 Loc: ER. Attending Dr: Ordering Physician: Helen Jovel M.D. Date of Service: Procedure(s): XR chest 1V portable Accession Number(s): [id number] cc: Helen Jovel M.D. CHEST COMPARISON: None [...] Signed By: Og Yang D.O. 08/02/23 0715 [id number] Normal [facility] oxyCODONE Screen Ql (U)Order ed By: Helen Jovel on 08-02-2023 oxyCODONE Ql (U) Not detected None Detect [facility] Comment on above: Cutoff: 100ng/mL pH (BldA)Ordered By: Christopher franklin on 08-02-2023 pH (Bld) 7.34 [pH] 7.35-7.45 [facility] Patient Provided Health Data on 07-29-2023 Patient Provided Health Data [id number]#1.00OTG TIFF [facility] Progress Noteson 07-24-2023 Body Press Operator Authentication Interface Message Text Longstanding PDR OU, [...] Dilate OU OCT mac OU Normal [facility] Right reti na by OCTon 07-24-2023 [facility] Radiology Study observation (narrative) [facility] Patient Handouton 07-12-2023 Patient Handout [id number]#1.00OTG TIFF [facility] INTRAVITREAL INJECTION, PHAR MACOLOGIC AGENT - [...] mL Route: Intravitreal, Site: Right Eye Lot: [id number], Expiration date: 06/27/2023 Left Eye Preparation included 10% betadine to eyelids. A 30 gauge needle was used. Injection Medications: 1.25 mg bevacizumab 1.25MG/0.05 mL Route: Intravitreal, Site: Left Eye Lot: [id number], Expiration date: 06/27/2023 Post-op Right Eye Post [...] written and verbal post procedure care education. [facility] Progress Noteson 06-26-2023 Body Press Operator Authentication Interface Message Text Longstanding PDR OU, DME, mac ischemia OU Sp PRP OU, Repeated injections - last 10/2022 Did not notice any real improvement with injections [place] [id number] Vision worse per pt A/P 1. DM [...] Dilate OU OCT mac OU Normal [facility] Study observation Right reti na by 06-26-2023 [facility] Radiology Study observation (narrative) [facility] Basic Metabolic Panelon Anion gap [Moles/Vol] Not performed Normal 6.0-15.0 [facility] Comment on above: Performed By: #### C BC, BMP, MG #### [facility] [address] [place] [address] [place] Calcium [Mass/Vol] 8.7 mg/dL Normal 8.6-10.3 [facility] Comment on above: Performed By: #### C BC, BMP, MG #### [facility] [address] [place] [address] [place] Chloride [Moles/Vol] 98 mmol/L Normal 98-107 [facility] Comment on above: Performed By: #### C BC, BMP, MG #### [facility] [address] [place] [address] [place] CO2 [Moles/Vol] 31.8 mmol/L High 21.0-31.0 [facility] Comment on above: Performed By: #### C BC, BMP, MG #### [facility] [address] [place] [address] [place] Creatinine [Mass/Vol] 2.57 mg/dL High 0.70-1.30 [facility] Comment on above: Performed By: #### C BC, BMP, MG #### [facility] [address] [place] [id number] [place] Creatinine Clr Calc Pharmacy 38.54 [facility] Comment on above: Performed By: #### C BC, BMP, MG #### [facility] [address] [place] [id number] [place] GFR/1.73 sq M.predicted MDRD (S/P/Bld) [Vol rate/Area] 29.357 mL/min/{1.73_m2} Normal [facility] Comment on above: Performed By: #### C BC, BMP, MG #### [facility] [address] Glucose [Mass/Vol] 97 mg/dL Normal 70-100 [facility] Comment on above: Result Comment: [facility] Glucose Reference Range is dependent on time and content of last meal. Glucose of more than 200 mg/dL in a nonstressed, ambulatory subject supports the diagnosis of Diabetes Mellitus. ADA recommended reference range Performed By: #### C BC, BMP, MG #### [facility] [address] Potassium Normal 3.5-5.1 [facility] Comment on above: Result Comment: Spec imen hemolyzed, redraw requested Performed By: #### C BC, BMP, MG #### [facility] [address] Sodium Normal 136-145 [facility] Comment on above: Result Comment: Spec imen hemolyzed, redraw requested Performed By: #### C BC, BMP, MG #### [facility] [address] Urea nitrogen [Mass/Vol] 56 mg/dL High 7-25 [facility] Comment on above: Performed By: #### C BC, BMP, MG #### [facility] [address] Basophils Auto (Bld) [#/Vol] Ordered By: Albert Woods on 04-18-2023 Basophils (Bld) [#/Vol] 0.0 10*3/uL 0.0-0.2 [facility] Basophils/100 WBC Auto (Bld) Ordered By: Albert Woods on 04-18-2023 Basophils/100 WBC (Bld) 0.6 % . [facility] Calcium [Mass/volume] in Ser um or PlasmaOrdered By: Albert Woods on 04-18-2023 Calcium [Mass/Vol] 8.7 mg/dL 8.6-10.3 [facility] Carbon dioxide, total [Moles /volume] in Serum or PlasmaOrdered By: Albert Woods on 04-18-2023 CO2 [Moles/Vol] 31.8 mmol/L 21.0-31.0 [facility] Chloride [Moles/volume] in S guadalupe or PlasmaOrdered By: Albert Woods on 04-18-2023 Chloride [Moles/Vol] 98 mmol/L 98-107 [facility] Complete Blood Count Auto Di ffon 04-18-2023 Basophils (Bld) [#/Vol] 0.0 10*3/uL Normal 0.0-0.2 [facility] Comment on above: Result Comment: PERF ORMED BY: [place] [address] PATHOLOGIST WALLPAPER CLEANER MOOK BROWN M.D. Performed By: #### C BC, BMP, MG #### [facility] [address] [place] [address] Basophils/100 WBC (Bld) 0.6 % Normal . [facility] Comment on above: Performed By: #### C BC, BMP, MG #### [facility] [address] [place] [address] [place] Eosinophils (Bld) [#/Vol] 0.3 10*3/uL Normal 0.0-0.45 [facility] Comment on above: Performed By: #### C BC, BMP, MG #### [facility] [address] [place] [address] [place] Eosinophils/100 WBC (Bld) 4.2 % Normal . [facility] Comment on above: Performed By: #### C BC, BMP, MG #### [facility] [address] Erythrocyte distribution width (RBC) [Ratio] 16.2 % High 12.0-14.8 [facility] Comment on above: Performed By: #### C BC, BMP, MG #### [address] Hematocrit (Bld) [Volume fraction] 38.4 % Low 38.8-50.0 [facility] Comment on above: Performed By: #### C BC, BMP, MG #### [address] Hemoglobin (Bld) [Mass/Vol] 12.8 g/dL Low 13.0-17.0 [facility] Comment on above: Performed By: #### C BC, BMP, MG #### [address] Lymphocytes (Bld) [#/Vol] 1.3 10*3/uL Normal 1.00-4.8 [facility] Comment on above: Performed By: #### C BC, BMP, MG #### [address] Lymphocytes/100 WBC (Bld) 17.3 % Normal . [facility] Comment on above: Performed By: #### C BC, BMP, MG #### [address] MCH (RBC) [Entitic mass] 29.7 pg Normal 27.5-35.2 [facility] Comment on above: Performed By: #### C BC, BMP, MG #### [address] MCV (RBC) [Entitic vol] 89.5 fL Normal 83.5-101 [facility] Comment on above: Performed By: #### C BC, BMP, MG #### [address] Mean Corpuscular HGB Conc 33.2 g/dL Normal 32.5-35.6 [facility] Comment on above: Performed By: #### C BC, BMP, MG #### [address] Monocytes (Bld) [#/Vol] 0.8 10*3/uL Normal 0.0-0.8 [facility] Comment on above: Performed By: #### C BC, BMP, MG #### [place] [address] [place] Monocytes/100 WBC (Bld) 10.8 % Normal . [facility] Comment on above: Performed By: #### C BC, BMP, MG #### [facility] [address] Neutrophils (Bld) [#/Vol] 5.0 10*3/uL Normal 1.8-7.7 [facility] Comment on above: Performed By: #### C BC, BMP, MG #### [facility] [address] Neutrophils/100 WBC (Bld) 67.1 % Normal . [facility] Comment on above: Performed By: #### C BC, BMP, MG #### [facility] [address] NRBC% 0.1 /100{WBC} Normal 0-0.5 [facility] Comment on above: Performed By: #### C BC, BMP, MG #### [facility] [address] Platelet mean volume (Bld) [Entitic vol] 9.6 fL Normal 6.6-10.1 [facility] Comment on above: Performed By: #### C BC, BMP, MG #### [facility] [address] Platelets (Bld) [#/Vol] 199 10*3/uL Normal 150-450 [facility] Comment on above: Performed By: #### C BC, BMP, MG #### [facility] [address] RBC (Bld) [#/Vol] 4.29 10*6/uL Normal 3.90-5.60 [facility] Comment on above: Performed By: #### C BC, BMP, MG #### [facility] [address] [place] [address] [place] WBC (Bld) [#/Vol] 7.4 10*3/uL Normal 4.1-10.5 [facility] Comment on above: Performed By: #### C BC, BMP, MG #### [facility] [address] [place] [address] Creatinine [Mass/volume] in Serum or PlasmaOrdered By: Albert Woods on 04-18-2023 Creatinine [Mass/Vol] 2.57 mg/dL 0.70-1.30 [facility] Eosinophils Auto (Bld) [#/Vo l]Ordered By: Albert Woods on 04-18-2023 Eosinophils (Bld) [#/Vol] 0.3 10*3/uL 0.0-0.45 [facility] Eosinophils/100 WBC Auto (Bl d)Ordered By: Albert Woods on 04-18-2023 Eosinophils/100 WBC (Bld) 4.2 % . [facility] Erythrocyte distribution wid th Auto (RBC) [Ratio]Ordered By: Albert Woods on 04-18-2023 Erythrocyte distribution width (RBC) [Ratio] 16.2 % 12.0-14.8 [facility] Free K+L LT Chains, Qn, Son 04-18-2023 Free [place] Light Chains, S 57.0 mg/L High 3.3-19.4 [facility] Comment on above: Performed By: #### R EDRAW NA, REDRAW MG, REDRAW K #### [facility] [address] [place] [address] Free Lambda Light Chains, S 31.9 mg/L High 5.7-26.3 [facility] Comment on above: Performed By: #### R EDRAW NA, REDRAW MG, REDRAW K #### [facility] [address] [place] [address] [place]/Lambda Ratio, S 1.79 High 0.26-1.65 [facility] Comment on above: Result Comment: Perf ormed at: CB - [facility] [address] [id number] Professor Of Mathematics: Phil Chua PhD, Phone: [phone] PERFORMED BY: [place] [address] PATHOLOGIST WALLPAPER CLEANER MOOK BROWN M.D. Performed By: #### R EDRAW NA, REDRAW MG, REDRAW K #### [facility] [address] [place] [address] [place] Glucose Glucometer (BldC) [M ass/Vol]Ordered By: Kameron Dos Santos on 04-18-2023 Glucose [Mass/Vol] 133 mg/dL [facility] Comment on above: Random Glucose Refer ence Range is dependent on time and content of last meal. Glucose of more than 200 mg/dL in a nonstressed, ambulatory subject supports the diagnosis of Diabetes Mellitus. Glucose Poct Glucometerson 0 04-18-2023 Commemt1 Glu2: Cleaned Meter [facility] Comment on above: Result Comment: PERF ORMED BY: [place] [address] PATHOLOGIST WALLPAPER CLEANER MOOK BROWN M.D. Performed By: #### G ANTHONY #### Point of Care testing , Glucose [Mass/Vol] 133 mg/dL Normal [facility] Comment on above: Result Comment: Rulo om Glucose Reference Range is dependent on time and content of last meal. Glucose of more than 200 mg/dL in a nonstressed, ambulatory subject supports the diagnosis of Diabetes Mellitus. Performed By: #### G ANTHONY #### Point of Care testing , Commemt1 Glu2: Cleaned Meter [facility] Comment on above: Result Comment: PERF ORMED BY: [place] [address] PATHOLOGIST WALLPAPER CLEANER MOOK BROWN M.D. Performed By: #### R EDRAW NA, REDRAW MG, REDRAW K #### [place] [address] [place] Glucose [Mass/Vol] 114 mg/dL Normal [facility] Comment on above: Result Comment: Rulo om Glucose Reference Range is dependent on time and content of last meal. Glucose of more than 200 mg/dL in a nonstressed, ambulatory subject supports the diagnosis of Diabetes Mellitus. Performed By: #### R EDRAW NA, REDRAW MG, REDRAW K #### [facility] [address] Glucose [Mass/volume] in Ser um or PlasmaOrdered By: Albert Woods on 04-18-2023 Glucose [Mass/Vol] 97 mg/dL 70-100 [facility] Comment on above: ADA recommended refe rence rangeRandom Glucose Reference Range is dependent on time and content of last meal. Glucose of more than 200 mg/dL in a nonstressed, ambulatory subject supports the diagnosis of Diabetes Mellitus. Hematocrit Auto (Bld) [Volum e fraction]Ordered By: Albert Woods on 04-18-2023 Hematocrit (Bld) [Volume fraction] 38.4 % 38.8-50.0 [facility] Hemoglobin [Mass/volume] in BloodOrdered By: Albert Woods on 04-18-2023 Hemoglobin (Bld) [Mass/Vol] 12.8 g/dL 13.0-17.0 [facility] Immunofixation, (LOVE), Urine on 04-18-2023 Immunofixation, (LOVE), Urine Comment: Normal . [facility] Comment on above: Result Comment: Pres ence of monoclonal protein is unclear at this time. Suggest repeat in 3 to 6 months if clinically indicated. Performed at: - [facility] [id number] Professor Of Mathematics: Phil Chua PhD, Phone: [phone] PERFORMED BY: [address] [place] [address] PATHOLOGIST WALLPAPER CLEANER MOOK BROWN M.D. Performed By: #### R EDRAW NA, REDRAW MG, REDRAW K #### [facility] [address] [place] [address] [place] Immunofixation,Serumon 04-18 Immunofixation, Serum Normal . [facility] Comment on above: Result Comment: No m onoclonality detected. Performed By: #### R EDRAW NA, REDRAW MG, REDRAW K #### [facility] [address] [place] [address] [place] Immunoglobulin A, Serum 149 mg/dL Normal 90-386 [facility] Comment on above: Performed By: #### R EDRAW NA, REDRAW MG, REDRAW K #### [facility] [address] Immunoglobulin G 565 mg/dL Low 603-1613 [facility] Comment on above: Performed By: #### R EDRAW NA, REDRAW MG, REDRAW K #### [facility] [address] Immunoglobulin M, Serum 36 mg/dL Normal 20-172 [facility] Comment on above: Performed By: #### R EDRAW NA, REDRAW MG, REDRAW K #### [facility] [address] Leukocytes [#/volume] correc hamlet for nucleated erythrocytes in Blood by Automated counOrdered By: Albert Woods on 04-18-2023 WBC corrected for nucl RBC Auto (Bld) [#/Vol] 7.4 10*3/uL 4.1-10.5 [facility] Lymphocytes Auto (Bld) [#/Vo l]Ordered By: Albert Woods on 04-18-2023 Lymphocytes (Bld) [#/Vol] 1.3 10*3/uL 1.00-4.8 [facility] Lymphocytes/100 WBC Auto (Bl d)Ordered By: Albert Woods on 04-18-2023 Lymphocytes/100 WBC (Bld) 17.3 % . [facility] MCH Auto (RBC) [Entitic mass ]Ordered By: Albert Woods on 04-18-2023 MCH (RBC) [Entitic mass] 29.7 pg 27.5-35.2 [facility] MCHC Auto (RBC) [Mass/Vol]Or dered By: Albert Woods on 04-18-2023 MCHC (RBC) [Mass/Vol] 33.2 g/dL 32.5-35.6 [facility] MCV Auto (RBC) [Entitic vol] Ordered By: Albert Woods on 04-18-2023 MCV (RBC) [Entitic vol] 89.5 fL 83.5-101 [facility] Magnesiumon 04-18-2023 Magnesium Normal 1.9-2.7 [facility] Comment on above: Result Comment: Spec imen hemolyzed, redraw requested PERFORMED BY: [place] [address] PATHOLOGIST WALLPAPER CLEANER MOOK BROWN M.D. Performed By: #### C BC, BMP, MG #### [address] Magnesium [Mass/volume] in S guadalupe or PlasmaOrdered By: Kameron Dos Santos on 04-18-2023 Magnesium [Mass/Vol] 2.4 mg/dL 1.9-2.7 [facility] Monocytes Auto (Bld) [#/Vol] Ordered By: Albert Woods on 04-18-2023 Monocytes (Bld) [#/Vol] 0.8 10*3/uL 0.0-0.8 [facility] Monocytes/100 WBC Auto (Bld) Ordered By: Albert Woods on 04-18-2023 Monocytes/100 WBC (Bld) 10.8 % . [facility] Neutrophils Auto (Bld) [#/Vo l]Ordered By: Albert Woods on 04-18-2023 Neutrophils (Bld) [#/Vol] 5.0 10*3/uL 1.8-7.7 [facility] Neutrophils/100 WBC Auto (Bl d)Ordered By: Albert Woods on 04-18-2023 Neutrophils/100 WBC (Bld) 67.1 % . [facility] No Panel InformationOrdered By: Kameron Dos Santos on 04-18-2023 Bedside Glucose Comment Glu2: cleaned meter [facility] No Panel InformationOrdered By: Albert Woods on 04-18-2023 Estimated GFR (CKD-EPI) 29.357 mL/Min [facility] Creatinine Clearance (Chem 38.54 [facility] Nucleated erythrocytes [Pres ence] in Blood by Automated countOrdered By: Albert Woods on 04-18-2023 Nucleated RBC Auto Ql (Bld) 0.1 /100{WBC} 0-0.5 [facility] Platelet mean volume Auto (B ld) [Entitic vol]Ordered By: Albert Woods on 04-18-2023 Platelet mean volume (Bld) [Entitic vol] 9.6 fL 6.6-10.1 [facility] Platelets Auto (Bld) [#/Vol] Ordered By: Albert Woods on 04-18-2023 Platelets (Bld) [#/Vol] 199 10*3/uL 150-450 [facility] Potassium [Moles/volume] in Serum or PlasmaOrdered By: Kameron Dos Santos on 04-18-2023 Potassium [Moles/Vol] 3.8 mmol/L 3.5-5.1 [facility] RBC Auto (Bld) [#/Vol]Ordere d By: Albert Woods on 04-18-2023 RBC (Bld) [#/Vol] 4.29 10*6/uL 3.90-5.60 [facility] Redraw Magnesiumon 3 Magnesium [Mass/Vol] 2.4 mg/dL Normal 1.9-2.7 [facility] Comment on above: Result Comment: PERF ORMED BY: [place] [address] PATHOLOGIST WALLPAPER CLEANER MOOK BROWN M.D. Performed By: #### R EDRAW NA, REDRAW MG, REDRAW K #### [facility] [address] Redraw Potassiumon 3 Potassium [Moles/Vol] 3.8 mmol/L Normal 3.5-5.1 [facility] Comment on above: Performed By: #### R EDRAW NA, REDRAW MG, REDRAW K #### [facility] [address] Redraw Sodiumon 04-18-2023 Sodium [Moles/Vol] 138 mmol/L Normal 136-145 [facility] Comment on above: Performed By: #### R EDRAW NA, REDRAW MG, REDRAW K #### [facility] [address] [place] [address] Serum or plasma anion gap de terminationOrdered By: Albert Woods on 04-18-2023 Anion gap [Moles/Vol] TNP [facility] Comment on above: Test not performed Sodium [Moles/volume] in Ser um or PlasmaOrdered By: Kameron Dos Santos on 04-18-2023 Sodium [Moles/Vol] 138 mmol/L 136-145 [facility] Urea nitrogen [Mass/volume] in Serum or PlasmaOrdered By: Albert Woods on 04-18-2023 Urea nitrogen [Mass/Vol] 56 mg/dL 7-25 [facility] WBC Auto (Bld) [#/Vol]Ordere d By: Albert Woods on 04-18-2023 WBC (Bld) [#/Vol] 7.4 10*3/uL 4.1-10.5 [facility] A1C with Estimated Average G john 04-17-2023 Glucose [Mass/Vol] 315 mg/dL Normal [facility] Comment on above: Result Comment: PERF ORMED BY: [place] [address] PATHOLOGIST W[employer] CLEANER MOOK BROWN M.D. Performed By: #### R EDLAVELL AMAYA, REDRAW MG, REDRAW K #### [address] HbA1c (Bld) [Mass fraction] 12.6 % High 4.3-5.6 [facility] Comment on above: Result Comment: Incr eased risk for diabetes: 5.7 - 6.4 diabetes: >6.4 glycemic control for adults with diabetes: <7.0 Performed By: #### R EDRALeann NA, REDRAW MG, REDRAW K #### [facility] [address] [place] [address] Basic Metabolic Panelon Anion gap [Moles/Vol] 10.4 mmol/L Normal 6.0-15.0 [facility] Comment on above: Performed By: #### M G, BMP, CBC #### [facility] [address] [place] [id number] [place] Calcium [Mass/Vol] 8.5 mg/dL Low 8.6-10.3 [facility] Comment on above: Performed By: #### DIMA Matthews, CBC #### [facility] [address] [place] [id number] [place] Chloride [Moles/Vol] 100 mmol/L Normal 98-107 [facility] Comment on above: Performed By: #### DIMA Matthews, CBC #### [facility] [address] [place] [id number] [place] CO2 [Moles/Vol] 30.3 mmol/L Normal 21.0-31.0 [facility] Comment on above: Performed By: #### DIMA Matthews, CBC #### [facility] [address] [place] [id number] [place] Creatinine [Mass/Vol] 2.66 mg/dL High 0.70-1.30 [facility] Comment on above: Performed By: #### DIMA Matthews, CBC #### [facility] [address] [place] [address] [place] Creatinine Clr Calc Pharmacy 36.86 [facility] Comment on above: Performed By: #### DIMA Matthews, CBC #### [facility] [address] [place] [id number] [place] GFR/1.73 sq M.predicted MDRD (S/P/Bld) [Vol rate/Area] 28.169 mL/min/{1.73_m2} [facility] Comment on above: Performed By: #### DIMA Matthews, CBC #### [facility] [address] [place] [id number] [place] Glucose [Mass/Vol] 100 mg/dL Normal 70-100 [facility] Comment on above: Result Comment: [facility] Glucose Reference Range is dependent on time and content of last meal. Glucose of more than 200 mg/dL in a nonstressed, ambulatory subject supports the diagnosis of Diabetes Mellitus. ADA recommended reference range Performed By: #### DIMA Matthews, CBC #### [facility] [address] Potassium [Moles/Vol] 3.7 mmol/L Normal 3.5-5.1 [facility] Comment on above: Performed By: #### DIMA Matthews, CBC #### [facility] [address] Sodium [Moles/Vol] 137 mmol/L Normal 136-145 [facility] Comment on above: Performed By: #### DIMA Matthews, CBC #### [facility] [address] Urea nitrogen [Mass/Vol] 57 mg/dL High 7- [facility] Comment on above: Performed By: #### DIMA Matthews, CBC #### [address] Complete Blood Count Auto Di ffon 04-17-2023 Basophils (Bld) [#/Vol] 0.0 10*3/uL Normal 0.0-0.2 [facility] Comment on above: Result Comment: PERF ORMED BY: [place] [address] PATHOLOGIST WALLPAPER CLEANER OMOK BROWN M.D. Performed By: #### DIMA Matthews, CBC #### [facility] [address] [place] [address] [place] Basophils/100 WBC (Bld) 0.5 % Normal . [facility] Comment on above: Performed By: #### DIMA Matthews, CBC #### [facility] [address] [place] [address] [place] Eosinophils (Bld) [#/Vol] 0.3 10*3/uL Normal 0.0-0.45 [facility] Comment on above: Performed By: #### DIMA Matthews, CBC #### [facility] [address] [place] [address] [place] Eosinophils/100 WBC (Bld) 4.0 % Normal . [facility] Comment on above: Performed By: #### DIMA Matthews, CBC #### [facility] [address] Erythrocyte distribution width (RBC) [Ratio] 16.4 % High 12.0-14.8 [facility] Comment on above: Performed By: #### DIMA Matthews, CBC #### [address] Hematocrit (Bld) [Volume fraction] 37.5 % Low 38.8-50.0 [facility] Comment on above: Performed By: #### DIMA Matthews, CBC #### [address] Hemoglobin (Bld) [Mass/Vol] 12.6 g/dL Low 13.0-17.0 [facility] Comment on above: Performed By: #### DIMA Matthews, CBC #### [address] Lymphocytes (Bld) [#/Vol] 1.2 10*3/uL Normal 1.00-4.8 [facility] Comment on above: Performed By: #### DIMA Matthews, CBC #### [address] Lymphocytes/100 WBC (Bld) 14.4 % Normal . [facility] Comment on above: Performed By: #### DIMA Matthews, CBC #### [address] MCH (RBC) [Entitic mass] 29.8 pg Normal 27.5-35.2 [facility] Comment on above: Performed By: #### DIMA Matthews, CBC #### [address] MCV (RBC) [Entitic vol] 89.0 fL Normal 83.5-101 [facility] Comment on above: Performed By: #### DIMA Matthews, CBC #### [address] Mean Corpuscular HGB Conc 33.5 g/dL Normal 32.5-35.6 [facility] Comment on above: Performed By: #### M G, BMP, CBC #### [facility] [address] [place] [address] [place] Monocytes (Bld) [#/Vol] 0.8 10*3/uL Normal 0.0-0.8 [facility] Comment on above: Performed By: #### Aislinn Worthy BMP, CBC #### [facility] [address] [place] [id number] [place] Monocytes/100 WBC (Bld) 10.2 % Normal . [facility] Comment on above: Performed By: #### Aislinn Worthy BMP, CBC #### [facility] [address] [place] [address] [place] Neutrophils (Bld) [#/Vol] 5.8 10*3/uL Normal 1.8-7.7 [facility] Comment on above: Performed By: #### DIMA Matthews, CBC #### [facility] [address] [place] [address] [place] Neutrophils/100 WBC (Bld) 70.9 % Normal . [facility] Comment on above: Performed By: #### DIMA Matthews, CBC #### [facility] [address] [place] [address] [place] NRBC% 0.2 /100{WBC} Normal 0-0.5 [facility] Comment on above: Performed By: #### DIMA Matthews, CBC #### [facility] [address] [place] [address] [place] Platelet mean volume (Bld) [Entitic vol] 9.9 fL Normal 6.6-10.1 [facility] Comment on above: Performed By: #### DIMA Matthews, CBC #### [facility] [address] [place] [address] [place] Platelets (Bld) [#/Vol] 199 10*3/uL Normal 150-450 [facility] Comment on above: Performed By: #### DIMA Matthews, CBC #### [facility] [address] [place] [address] [place] RBC (Bld) [#/Vol] 4.21 10*6/uL Normal 3.90-5.60 [facility] Comment on above: Performed By: #### M G, BMP, CBC #### [facility] [address] WBC (Bld) [#/Vol] 8.2 10*3/uL Normal 4.1-10.5 [facility] Comment on above: Performed By: #### M G, BMP, CBC #### [facility] [address] Creatinine [Mass/volume] in UrineOrdered By: Nkechi Kc on 04-17-2023 Creatinine (U) [Mass/Vol] 70.0 mg/dL 14.0-26.0 [facility] Creatinine, Urine (Random)on 04-17-2023 Creatinine, Urine (Random) 70.0 mg/dL High 14.0-26.0 [facility] Comment on above: Performed By: #### R EDRAW NA, REDRAW MG, REDRAW K #### [address] Glucose Poct Glucometerson 0 04-17-2023 Commemt1 Glu2: Cleaned Meter Normal [facility] Comment on above: Result Comment: PERF ORMED BY: [place] [address] PATHOLOGIST WALLP[employer]ER CLEANER MOOK BROWN M.D. Performed By: #### R EDRAW NA, REDRAW MG, REDRAW K #### [address] Glucose [Mass/Vol] 339 mg/dL Normal [facility] Comment on above: Result Comment: [facility] Glucose Reference Range is dependent on time and content of last meal. Glucose of more than 200 mg/dL in a nonstressed, ambulatory subject supports the diagnosis of Diabetes Mellitus. Performed By: #### R EDRAW NA, REDRAW MG, REDRAW K #### [facility] [address] Glucose mean value [Mass/vol ume] in Blood Estimated from glycated hemoglobinOrdered By: Nkechi Kc on 04-17-2023 Average glucose Estimated from glycated hemoglobin (Bld) [Mass/Vol] 315 mg/dL [facility] Hemoglobin A1c percentageOrd ered By: Nkechi Arzatekobe on 04-17-2023 HbA1c (Bld) [Mass fraction] 12.6 % 4.3-5.6 [facility] Comment on above: Increased risk for d iabetes: 5.7 - 6.4diabetes: >6.4glycemic control for adults with diabetes: <7.0 Magnesiumon 04-17-2023 Magnesium [Mass/Vol] 2.3 mg/dL Normal 1.9-2.7 [facility] Comment on above: Result Comment: PERF ORMED BY: [place] [address] PATHOLOGIST WALLP[employer]ER CLEANER MOOK BROWN M.D. Performed By: #### M G, BMP, CBC #### [facility] [address] [place] [address] Protein [Mass/volume] in Uri neOrdered By: Nkechi Kc on 04-17-2023 Protein (U) [Mass/Vol] 330 mg/dL 0-9 [facility] Total Protein, Urineon 04-17 Protein (U) [Mass/Vol] 330 mg/dL High 0-9 [facility] Comment on above: Result Comment: PERF ORMED BY: [place] [address] PATHOLOGIST WALLPAPER CLEANER MOOK BROWN M.D. Performed By: #### R EDRAW NA, REDRAW MG, REDRAW K #### [facility] [address] [place] [address] Automated epithelial cells c ount in urine sediment (number/area)Ordered By: Kameron Dos Santos on 04-16-2023 Epithelial cells Auto (Urine sed) [#/Area] None seen [HPF] 0-2 [facility] Automated erythrocytes count in urine sediment (number/area)Ordered By: Kameron Dos Santos on 04-16-2023 RBC Auto (Urine sed) [#/Area] None seen [HPF] 0-4 [facility] Automated leukocytes count i n urine sediment (number/area)Ordered By: Kameron Raya on 04-16-2023 WBC Auto (Urine sed) [#/Area] None seen [HPF] 0-4 [facility] Automated urine hyaline cast s count (number/volume)Ordered By: Kameron Dos Santos on 04-16-2023 Hyaline casts Auto (U) [#/Vol] None seen [LPF] 0-1 [facility] Basic Metabolic Panelon Anion gap [Moles/Vol] 12.7 mmol/L Normal 6.0-15.0 [facility] Comment on above: Performed By: #### R EDRAW NA, REDRAW MG, REDRAW K #### [facility] [address] Calcium [Mass/Vol] 8.8 mg/dL Normal 8.6-10.3 [facility] Comment on above: Performed By: #### R EDRAW NA, REDRAW MG, REDRAW K #### [facility] [address] Chloride [Moles/Vol] 100 mmol/L Normal 98-107 [facility] Comment on above: Performed By: #### R EDRAW NA, REDRAW MG, REDRAW K #### [facility] [address] CO2 [Moles/Vol] 28.1 mmol/L Normal 21.0-31.0 [facility] Comment on above: Performed By: #### R EDRAW NA, REDRAW MG, REDRAW K #### [facility] [address] [place] [address] [place] Creatinine [Mass/Vol] 2.80 mg/dL High 0.70-1.30 [facility] Comment on above: Performed By: #### R EDRAW NA, REDRAW MG, REDRAW K #### [facility] [address] [place] [address] [place] Creatinine Clr Calc Pharmacy 35.07 Normal [facility] Comment on above: Result Comment: PERF ORMED BY: [place] [address] PATHOLOGIST WALLPAPER CLEANER MOOK BROWN M.D. Performed By: #### R EDRAW NA, REDRAW MG, REDRAW K #### [place] [address] [place] GFR/1.73 sq M.predicted MDRD (S/P/Bld) [Vol rate/Area] 26.487 mL/min/{1.73_m2} Normal [facility] Comment on above: Performed By: #### R EDRAW NA, REDRAW MG, REDRAW K #### [address] Glucose [Mass/Vol] 161 mg/dL High 70-100 [facility] Comment on above: Result Comment: [facility] Glucose Reference Range is dependent on time and content of last meal. Glucose of more than 200 mg/dL in a nonstressed, ambulatory subject supports the diagnosis of Diabetes Mellitus. ADA recommended reference range Performed By: #### R EDRAW NA, REDRAW MG, REDRAW K #### [facility] [address] [place] [address] Potassium [Moles/Vol] 3.8 mmol/L Normal 3.5-5.1 [facility] Comment on above: Performed By: #### R EDRAW NA, REDRAW MG, REDRAW K #### [facility] [address] [place] [address] [place] Sodium [Moles/Vol] 137 mmol/L Normal 136-145 [facility] Comment on above: Performed By: #### R EDRAW NA, REDRAW MG, REDRAW K #### [facility] [address] [place] [address] [place] Urea nitrogen [Mass/Vol] 54 mg/dL High 7-25 [facility] Comment on above: Performed By: #### R EDRAW NA, REDRAW MG, REDRAW K #### [place] [address] [place] Anion gap [Moles/Vol] 12.5 mmol/L Normal 6.0-15.0 [facility] Comment on above: Performed By: #### R EDRAW NA, REDRAW MG, REDRAW K #### [facility] [address] [place] [address] Calcium [Mass/Vol] 8.2 mg/dL Low 8.6-10.3 [facility] Comment on above: Performed By: #### R EDRAW NA, REDRAW MG, REDRAW K #### [facility] [address] [place] [address] Chloride [Moles/Vol] 98 mmol/L Normal 98-107 [facility] Comment on above: Performed By: #### R EDRAW NA, REDRAW MG, REDRAW K #### [facility] [address] [place] [address] CO2 [Moles/Vol] 31.8 mmol/L High 21.0-31.0 [facility] Comment on above: Performed By: #### R EDRAW NA, REDRAW MG, REDRAW K #### [facility] [address] [place] [address] Creatinine [Mass/Vol] 3.23 mg/dL High 0.70-1.30 [facility] Comment on above: Performed By: #### R EDRAW NA, REDRAW MG, REDRAW K #### [facility] [address] [place] [address] [place] Creatinine Clr Calc Pharmacy 30.52 [facility] Comment on above: Performed By: #### R EDRAW NA, REDRAW MG, REDRAW K #### [facility] [address] [place] [address] [place] GFR/1.73 sq M.predicted MDRD (S/P/Bld) [Vol rate/Area] 22.315 mL/min/{1.73_m2} [facility] Comment on above: Performed By: #### R EDRAW NA, REDRAW MG, REDRAW K #### [facility] [address] Glucose [Mass/Vol] 133 mg/dL High 70-100 [facility] Comment on above: Result Comment: [facility] Glucose Reference Range is dependent on time and content of last meal. Glucose of more than 200 mg/dL in a nonstressed, ambulatory subject supports the diagnosis of Diabetes Mellitus. ADA recommended reference range Performed By: #### R EDRAW NA, REDRAW MG, REDRAW K #### [facility] [address] Potassium [Moles/Vol] 3.3 mmol/L Low 3.5-5.1 [facility] Comment on above: Performed By: #### R EDRAW NA, REDRAW MG, REDRAW K #### [address] Sodium [Moles/Vol] 139 mmol/L Normal 136-145 [facility] Comment on above: Performed By: #### R EDRAW NA, REDRAW MG, REDRAW K #### [facility] [address] [place] [address] Urea nitrogen [Mass/Vol] 56 mg/dL High 7-25 [facility] Comment on above: Performed By: #### R EDRAW NA, REDRAW MG, REDRAW K #### [address] Bilirubin Test strip Ql (U)O rdered By: Kameron Dos Santos on 04-16-2023 Bilirubin Ql (U) Negative Negative [facility] CT abdomen pelvis wo conon 0 04-16-2023 CT abdomen pelvis wo con [facility] [place] [address] [place] [address] CT Scan Report Signed Patient: Chandler Minor MR#: [id number] [birth year] : 1970 Acct:[id number] Age/Sex: 52 / M ADM Date: 04/15/23 Loc: Room: [address] [place] [address] Type: ADM IN Attending Dr: Kameron Dos [...] Jesu Reese M.D.04/16/2023 6:22 PM Dictation Location: [place] [address] Transcribed By: [facility] 04/16/231821 Dictated By: Jesu Reese DO 04/16/231817 Signed By: 04/16/231821 Normal [facility] Color Auto (U)Ordered By: Rona Dos Santos on 04-16-2023 Color (U) Yellow Yellow [facility] Complete Blood Count Auto Di ffon 04-16-2023 Basophils (Bld) [#/Vol] 0.0 10*3/uL Normal 0.0-0.2 [facility] Comment on above: Result Comment: PERF ORMED BY: [facility] [address] [place] [address] PATHOLOGIST WALLP[employer]ER CLEANER MOOK BROWN M.D. Performed By: #### R EDRAW NA, REDRAW MG, REDRAW K #### [facility] [address] [place] [address] Basophils/100 WBC (Bld) 0.5 % Normal . [facility] Comment on above: Performed By: #### R EDRAW NA, REDRAW MG, REDRAW K #### [facility] [address] [place] [address] Eosinophils (Bld) [#/Vol] 0.3 10*3/uL Normal 0.0-0.45 [facility] Comment on above: Performed By: #### R EDRAW NA, REDRAW MG, REDRAW K #### [facility] [address] [place] [address] Eosinophils/100 WBC (Bld) 3.7 % Normal . [facility] Comment on above: Performed By: #### R EDRAW NA, REDRAW MG, REDRAW K #### [address] Erythrocyte distribution width (RBC) [Ratio] 16.3 % High 12.0-14.8 [facility] Comment on above: Performed By: #### R EDRAW NA, REDRAW MG, REDRAW K #### [address] Hematocrit (Bld) [Volume fraction] 38.1 % Low 38.8-50.0 [facility] Comment on above: Performed By: #### R EDRAW NA, REDRAW MG, REDRAW K #### [address] Hemoglobin (Bld) [Mass/Vol] 12.6 g/dL Low 13.0-17.0 [facility] Comment on above: Performed By: #### R EDRAW NA, REDRAW MG, REDRAW K #### [address] Lymphocytes (Bld) [#/Vol] 1.4 10*3/uL Normal 1.00-4.8 [facility] Comment on above: Performed By: #### R EDRAW NA, REDRAW MG, REDRAW K #### [facility] [address] [place] [address] Lymphocytes/100 WBC (Bld) 17.7 % Normal . [facility] Comment on above: Performed By: #### R EDRAW NA, REDRAW MG, REDRAW K #### [facility] [address] [place] [address] MCH (RBC) [Entitic mass] 29.7 pg Normal 27.5-35.2 [facility] Comment on above: Performed By: #### R EDRAW NA, REDRAW MG, REDRAW K #### [facility] [address] [place] [address] MCV (RBC) [Entitic vol] 90.3 fL Normal 83.5-101 [facility] Comment on above: Performed By: #### R EDRAW NA, REDRAW MG, REDRAW K #### [facility] [address] [place] [address] Mean Corpuscular HGB Conc 32.9 g/dL Normal 32.5-35.6 [facility] Comment on above: Performed By: #### R EDRAW NA, REDRAW MG, REDRAW K #### [address] Monocytes (Bld) [#/Vol] 0.7 10*3/uL Normal 0.0-0.8 [facility] Comment on above: Performed By: #### R EDRAW NA, REDRAW MG, REDRAW K #### [address] Monocytes/100 WBC (Bld) 8.8 % Normal . [facility] Comment on above: Performed By: #### R EDRAW NA, REDRAW MG, REDRAW K #### [address] Neutrophils (Bld) [#/Vol] 5.4 10*3/uL Normal 1.8-7.7 [facility] Comment on above: Performed By: #### R EDRAW NA, REDRAW MG, REDRAW K #### [facility] [address] [place] [address] Neutrophils/100 WBC (Bld) 69.3 % Normal . [facility] Comment on above: Performed By: #### R EDRAW NA, REDRAW MG, REDRAW K #### [facility] [address] [place] [address] NRBC% 0.1 /100{WBC} Normal 0-0.5 [facility] Comment on above: Performed By: #### R EDRAW NA, REDRAW MG, REDRAW K #### [address] Platelet mean volume (Bld) [Entitic vol] 9.5 fL Normal 6.6-10.1 [facility] Comment on above: Performed By: #### R EDRAW NA, REDRAW MG, REDRAW K #### [address] Platelets (Bld) [#/Vol] 187 10*3/uL Normal 150-450 [facility] Comment on above: Performed By: #### R EDRAW NA, REDRAW MG, REDRAW K #### [address] RBC (Bld) [#/Vol] 4.22 10*6/uL Normal 3.90-5.60 [facility] Comment on above: Performed By: #### R EDRAW NA, REDRAW MG, REDRAW K #### [facility] [address] [place] [address] WBC (Bld) [#/Vol] 7.8 10*3/uL Normal 4.1-10.5 [facility] Comment on above: Performed By: #### R EDRAW NA, REDRAW MG, REDRAW K #### [facility] [address] [place] [address] Creatinine, Urine (Random)on 04-16-2023 Creatinine, Urine (Random) 57.0 mg/dL High 14.0-26.0 [facility] Comment on above: Result Comment: PERF ORMED BY: [place] [address] PATHOLOGIST W[employer]ER MOOK BROWN M.D. Performed By: #### R EDRAW NA, REDRAW MG, REDRAW K #### [facility] [address] [place] [address] [place] Dipstick and Microscopicon 0 04-16-2023 Appearance (U) Clear Normal Clear [facility] Comment on above: Order Comment: Name Collection Type:: Clean-Voided Midstream Performed By: #### R EDRAW NA, REDRAW MG, REDRAW K #### [facility] [address] [place] [address] Bacteria,Urine None Seen Normal None Seen [facility] Comment on above: Order Comment: Name Collection Type:: Clean-Voided Midstream Performed By: #### R EDRAW NA, REDRAW MG, REDRAW K #### [facility] [address] [place] [address] [place] Bilirubin,Urine Negative Normal Negative [facility] Comment on above: Order Comment: Name Collection Type:: Clean-Voided Midstream Performed By: #### R EDRAW NA, REDRAW MG, REDRAW K #### [facility] [address] [place] [address] Color (U) Yellow Normal Yellow [facility] Comment on above: Order Comment: Name Collection Type:: Clean-Voided Midstream Performed By: #### R EDRAW NA, REDRAW MG, REDRAW K #### [facility] [address] [place] [address] [place] Glucose Ql (U) >=1000 High Normal [facility] Comment on above: Order Comment: Name Collection Type:: Clean-Voided Midstream Performed By: #### R EDRAW NA, REDRAW MG, REDRAW K #### [facility] [address] [place] [address] [place] Hyaline Casts,Urine None Seen Normal 0-1 [facility] Comment on above: Order Comment: Name Collection Type:: Clean-Voided Midstream Result Comment: PERF ORMED BY: [place] [address] PATHOLOGIST WALLPAPER CLEANER MOOK BROWN M.D. Performed By: #### R EDRAW NA, REDRAW MG, REDRAW K #### [facility] [address] [place] [address] [place] Ketones Ql (U) Negative Normal Negative [facility] Comment on above: Order Comment: Name Collection Type:: Clean-Voided Midstream Performed By: #### R EDRAW NA, REDRAW MG, REDRAW K #### [facility] [address] [place] [address] Leukocyte esterase Test strip Ql (U) Negative Normal Negative [facility] Comment on above: Order Comment: Name Collection Type:: Clean-Voided Midstream Performed By: #### R EDRAW NA, REDRAW MG, REDRAW K #### [facility] [address] [place] [address] [place] Nitrite,Urine Negative Normal Negative [facility] Comment on above: Order Comment: Name Collection Type:: Clean-Voided Midstream Performed By: #### R EDRAW NA, REDRAW MG, REDRAW K #### [facility] [address] [place] [address] [place] Occult Blood,Urine Negative Normal Negative [facility] Comment on above: Order Comment: Name Collection Type:: Clean-Voided Midstream Result Comment: PERF ORMED BY: [place] [address] PATHOLOGIST WALLP[employer]ER CLEANER MOOK BROWN M.D. Performed By: #### R EDRAW NA, REDRAW MG, REDRAW K #### [facility] [address] [place], [place] [id number] [place] pH (U) 6.5 [pH] Normal 5.0-9.0 [facility] Comment on above: Order Comment: Name Collection Type:: Clean-Voided Midstream Performed By: #### R EDRAW NA, REDRAW MG, REDRAW K #### [facility] [address] [place] [address] Protein (U) [Mass/Vol] 300 mg/dL High Negative [facility] Comment on above: Order Comment: Name Collection Type:: Clean-Voided Midstream Performed By: #### R EDRAW NA, REDRAW MG, REDRAW K #### [facility] [address] [place] [address] RBC,Urine None Seen Normal 0-4 [facility] Comment on above: Order Comment: Name Collection Type:: Clean-Voided Midstream Performed By: #### R EDRAW NA, REDRAW MG, REDRAW K #### [facility] [address] [place] [address] Specificy [place],Urine 1.017 Normal 1.00 1-1.03 0 [facility] Comment on above: Order Comment: Name Collection Type:: Clean-Voided Midstream Performed By: #### R EDRAW NA, REDRAW MG, REDRAW K #### [facility] [address] [place] [address] Squamous Epithelial Cell,Urine None Seen Normal 0-2 [facility] Comment on above: Order Comment: Name Collection Type:: Clean-Voided Midstream Performed By: #### R EDRAW NA, REDRAW MG, REDRAW K #### [facility] [address] [place] [address] Urobilinogen,Urine Normal Normal Normal [facility] Comment on above: Order Comment: Name Collection Type:: Clean-Voided Midstream Performed By: #### R EDRAW NA, REDRAW MG, REDRAW K #### [facility] [address] [place] [address] WBC,Urine None Seen Normal 0-4 [facility] Comment on above: Order Comment: Name Collection Type:: Clean-Voided Midstream Performed By: #### R EDRAW NA, REDRAW MG, REDRAW K #### [place] [id number] [facility] Glucose Poct Glucometerson 0 04-16-2023 Commemt1 Glu2: Cleaned Meter Normal [facility] Comment on above: Result Comment: PERF ORMED BY: [place] [address] PATHOLOGIST WALLPAPER CLEANER MOOK BROWN M.D. Performed By: #### R MONISHA AMAYA REDRAW MG REDRAW K #### [place] [id number] [facility] Glucose [Mass/Vol] 193 mg/dL Normal [facility] Comment on above: Result Comment: [facility] Glucose Reference Range is dependent on time and content of last meal. Glucose of more than 200 mg/dL in a nonstressed, ambulatory subject supports the diagnosis of Diabetes Mellitus. Performed By: #### R MONISHA AMAYA, REDLAVELL MG REDRAW K #### [address] Ketones Auto test strip (U) [Mass/Vol]Ordered By: Kameron Dos Santos on 04-16-2023 Ketones (U) [Mass/Vol] Negative Negative [facility] Magnesiumon 04-16-2023 Magnesium [Mass/Vol] 2.3 mg/dL Normal 1.9-2.7 [facility] Comment on above: Result Comment: PERF ORMED BY: [place] [address] PATHOLOGIST WALLPAPER CLEANER MOOK BROWN M.D. Performed By: #### R MONISHA AMAYA, REDRAW MG, REDRAW K #### [facility] [address] [place], [place] [id number] [facility] Nitrite Test strip Ql (U)Ord ered By: Kameron Dos Santos on 04-16-2023 Nitrite Ql (U) Negative Negative [facility] Protein Auto test strip (U) [Mass/Vol]Ordered By: Kameron Dos Santos on 04-16-2023 Protein (U) [Mass/Vol] 300 mg/dL Negative [facility] Sodium [Moles/volume] in Uri neOrdered By: Kameron Dos Santos on 04-16-2023 Sodium (U) [Moles/Vol] 67.0 mmol/L [facility] Comment on above: No reference range e stablished Sodium, Urineon 04-16-2023 Sodium (U) [Moles/Vol] 67.0 mmol/L Normal [facility] Comment on above: Result Comment: No r eference range established Performed By: #### R EDRAW NA, REDRAW MG, REDRAW K #### [address] Specific gravity Auto test s trip (U) [Rel density]Ordered By: Kameron Dos Santos on 04-16-2023 Specific gravity (U) [Rel density] 1.017 1.001-1.03 0 [facility] Urine bacteria detection by automated methodOrdered By: Kameron Dos Santos on 04-16-2023 Bacteria Auto Ql (U) None seen None Seen [facility] Urine clarity by refractomet ry automatedOrdered By: Kameron Dos Santos on 04-16-2023 Clarity Refractometry automated (U) Clear Clear [facility] Urine glucose measurement by automated test strip (mass/volume)Ordered By: Kameron Dos Santos on 04-16-2023 Glucose Auto test strip (U) [Mass/Vol] >=1000 mg/dL Normal [facility] Urine hemoglobin detection b y automated test stripOrdered By: Kameron Dos Santos on 04-16-2023 Hemoglobin Auto test strip Ql (U) Negative Negative [facility] Urine leukocyte esterase det ection by automated test stripOrdered By: Kameron Dos Santos on 04-16-2023 Leukocyte esterase Auto test strip Ql (U) Negative Negative [facility] Urobilinogen Auto test strip (U) [Mass/Vol]Ordered By: Kameron Dos Santos on 04-16-2023 Urobilinogen (U) [Mass/Vol] Normal mg/dL Normal [facility] pH Auto test strip (U)Ordere d By: Kameron Dos Santos on 04-16-2023 pH (U) 6.5 [pH] 5.0-9.0 [facility] OSMOLALITY URINEon 05-29-202 3 Osmolality, Urine 330 mOsmol/kg Normal [facility] Comment on above: Result Comment: 24 h r : 300 - 900 Random: 50 - 1400 After 12hr fluid restriction: >850 Performed By: #### P OCGLUC #### [facility] [address] [place] [address] Dr. Spring Nash BNPon 03-09-2023 Natriuretic peptide B (Bld) [Mass/Vol] 1950.0 pg/mL Critically high <=900.0 [facility] Comment on above: Performed By: #### B MP #### [facility] [address] [place] [address] Dr. Spring Nash CBC AUTO DIFFon 03-09-2023 BASO # 0.0 103/ul Normal 0.0-0.1 [facility] Comment on above: Performed By: #### C MP, HSTROPN, BNP #### [facility] [address] [place] [address] Dr. Spring Nash Basophils/100 WBC (Bld) 0.3 % Normal 0.2-2.0 [facility] Comment on above: Performed By: #### C MP, HSTROPN, BNP #### [facility] [address] [place] [address] Dr. Spring Nash EO # 0.3 103/ul Normal 0.0-0.7 [facility] Comment on above: Performed By: #### C MP, HSTROPN, BNP #### [facility] [address] [place] [address] Dr. Spring Nash Eosinophils/100 WBC (Bld) 5.9 % Normal 0.9-7.0 [facility] Comment on above: Performed By: #### C MP, HSTROPN, BNP #### [facility] [address] [place] [address] Dr. Spring Nash Erythrocyte distribution width (RBC) [Ratio] 15.6 % Critically high 11.0-15.0 [facility] Comment on above: Performed By: #### C MP, HSTROPN, BNP #### [facility] [address] [address] [address] Spring Nash Hematocrit (Bld) [Volume fraction] 31.4 % Critically low 42.0-54.0 [facility] Comment on above: Performed By: #### C MP, HSTROPN, BNP #### [facility] [address] [place] [address] Dr. Spring Nash Hemoglobin (Bld) [Mass/Vol] 10.0 g/dL Critically low 14.0-18.0 [facility] Comment on above: Performed By: #### C MP, HSTROPN, BNP #### [facility] [address] [place] [address] Dr. Spring Nash IG # 0.02 10e3/ul Normal 0.00-0.03 [facility] Comment on above: Performed By: #### C MP, HSTROPN, BNP #### [facility] [address] [place] [address] Dr. Spring Nash IG % 0.3 % Normal 0.0-0.5 [facility] Comment on above: Performed By: #### C MP, HSTROPN, BNP #### [facility] [address] [place] [address] Dr. Spring Nash LYMPH # 1.0 103/ul Critically low 1.2-3.8 [facility] Comment on above: Performed By: #### C MP, HSTROPN, BNP #### [facility] [address] [place] [address] Dr. Spring Nash Lymphocytes/100 WBC (Bld) 17.6 % Critically low 20.5-60.0 [facility] Comment on above: Performed By: #### C MP, HSTROPN, BNP #### [facility] [address] [place] [address] Dr. Spring Nash MANUAL DIFF REQ NO Normal [facility] Comment on above: Performed By: #### C MP, HSTROPN, BNP #### [facility] [address] [place] [address] Dr. Spring Nash MCH (RBC) [Entitic mass] 29.3 pg Normal 25.9-34.0 [facility] Comment on above: Performed By: #### C MP, HSTROPN, BNP #### [facility] [address] [place] [address] Dr. Spring Nash MCHC (RBC) [Mass/Vol] 31.8 g/dL Normal 29.9-35.2 [facility] Comment on above: Performed By: #### C MP, HSTROPN, BNP #### [facility] [address] [place] [address] Dr. Spring Nash MCV (RBC) [Entitic vol] 92.1 fL Normal 80.0-94.0 [facility] Comment on above: Performed By: #### C MP, HSTROPN, BNP #### [facility] [address] [place] [address] Dr. Spring Nash MONO # 0.6 103/ul Normal 0.3-0.8 [facility] Comment on above: Performed By: #### C MP, HSTROPN, BNP #### [facility] [address] [place] [address] Dr. Spring Nash Monocytes/100 WBC (Bld) 9.9 % Normal 1.7-12.0 [facility] Comment on above: Performed By: #### C MP, HSTROPN, BNP #### [facility] [address] [place] [address] Dr. Spring Nash NEUT # 3.8 103/ul Normal 1.4-6.5 [facility] Comment on above: Performed By: #### C MP, HSTROPN, BNP #### [facility] [address] [place] [address] Dr. Spring Nash Neutrophils/100 WBC (Bld) 66.0 % Normal 43.0-75.0 [facility] Comment on above: Performed By: #### C MP, HSTROPN, BNP #### [facility] [address] [place] [address] Dr. Spring Nash Platelet mean volume (Bld) [Entitic vol] 11.6 fL Normal 9.5-13.5 [facility] Comment on above: Performed By: #### C MP, HSTROPN, BNP #### [facility] [address] [place] [address] [address] Spring Nash PLT 213 103/ul Normal 150-450 [facility] Comment on above: Performed By: #### C MP, HSTROPN, BNP #### [facility] [address] [place] [address] [address] Spring Nash RBC 3.41 106/ul Critically low 4.70-6.10 [facility] Comment on above: Performed By: #### C MP, HSTROPN, BNP #### [facility] [address] [place] [address] Dr. Spring Nash WBC 5.7 103/ul Normal 4.0-11.0 [facility] Comment on above: Performed By: #### C MP, HSTROPN, BNP #### [facility] [address] [place] [address] Dr. Spring Nash POINT OF CARE GLUCOSEon 02-12 Glucose [Mass/Vol] 233 mg/dL Critically high 74-106 [facility] Comment on above: Performed By: #### B MP #### [facility] [address] [place] [address] Dr. Spring Nash Glucose [Mass/Vol] 129 mg/dL Critically high 74-106 [facility] Comment on above: Performed By: #### C MP, HSTROPN, BNP #### [facility] [address] [place] [address] Dr. Spring Nash PROF 14(COMP METB)on 023 Albumin [Mass/Vol] 2.5 g/dL Critically low 3.4-5.0 [facility] Comment on above: Performed By: #### B MP #### [facility] [address] [place] [address] Dr. Spring Nash Albumin/Globulin [Mass ratio] 0.8 {ratio} Normal [facility] Comment on above: Performed By: #### B MP #### [facility] [address] [address] [address] Spring Nash ALP [Catalytic activity/Vol] 105 U/L Normal 46-116 [facility] Comment on above: Performed By: #### B MP #### [facility] [address] [place] [address] Dr. Spring Nash ALT [Catalytic activity/Vol] 18 U/L Normal 16-63 [facility] Comment on above: Performed By: #### B MP #### [facility] [address] [place] [address] Dr. Spring Nash Anion gap [Moles/Vol] 10.3 mmol/L Normal [facility] Comment on above: Performed By: #### B MP #### [facility] [address] [place] [address] Dr. Spring Nash AST [Catalytic activity/Vol] 14 U/L Critically low 15-37 [facility] Comment on above: Performed By: #### B MP #### [facility] [address] [place] [address] Dr. Spring Nash Bilirubin [Mass/Vol] 0.3 mg/dL Normal 0.2-1.0 [facility] Comment on above: Performed By: #### B MP #### [facility] [address] [place] [address] Dr. Spring Nash Calcium [Mass/Vol] 8.4 mg/dL Critically low 8.5-10.1 [facility] Comment on above: Performed By: #### B MP #### [facility] [address] [place] [address] Dr. Spring Nash Chloride [Moles/Vol] 106 mmol/L Normal 98-107 [facility] Comment on above: Performed By: #### B MP #### [facility] [address] [place] [address] Dr. Spring Nash CO2 [Moles/Vol] 30.2 mmol/L Normal 21.0-32.0 [facility] Comment on above: Performed By: #### B MP #### [facility] [address] [place] [address] Dr. Spring Nash Creatinine [Mass/Vol] 2.95 mg/dL Critically high 0.70-1.30 [facility] Comment on above: Performed By: #### B MP #### [facility] [address] [address] [address] Spring Nash EGFR-AF EGYPTIAN 27 mL/min/1.73m2 Critically low >=60 [facility] Comment on above: Performed By: #### B MP #### [facility] [address] [address] [address] Spring Nash EGFR-NON AF EGYPTIAN 23 mL/min/1.73m2 Critically low >=60 [facility] Comment on above: Performed By: #### B MP #### [facility] [address] [address] [address] Spring Nash Globulin (S) [Mass/Vol] 3.2 g/dL Normal [facility] Comment on above: Performed By: #### B MP #### [facility] [address] [address] [address] Spring Nash Glucose [Mass/Vol] 153 mg/dL Critically high 74-106 [facility] Comment on above: Performed By: #### B MP #### [facility] [address] [address] [address] Spring Nash Potassium [Moles/Vol] 4.5 mmol/L Normal 3.5-5.1 [facility] Comment on above: Performed By: #### B MP #### [facility] [address] [address] [address] Spring Nash Protein [Mass/Vol] 5.7 g/dL Critically low 6.4-8.2 [facility] Comment on above: Performed By: #### B MP #### [facility] [address] [address] [address] Spring Nash Sodium [Moles/Vol] 142 mmol/L Normal 136-145 [facility] Comment on above: Performed By: #### B MP #### [facility] [address] [address] [address] Spring Nash Urea nitrogen [Mass/Vol] 50.0 mg/dL Critically high 7.0-18.0 [facility] Comment on above: Performed By: #### B MP #### [facility] [address] [place] [address] Dr. Spring Nash Urea nitrogen/Creatinine [Mass ratio] 16.9 mg/mg Normal [facility] Comment on above: Performed By: #### B MP #### [facility] [address] [place] [address] Dr. Spring Nash BNPon 03-08-2023 Natriuretic peptide B (Bld) [Mass/Vol] 2675.0 pg/mL Critically high <=900.0 [facility] Comment on above: Performed By: #### P OCGLUC #### [facility] [address] [place] [address] Dr. Spring Nash CBC AUTO DIFFon 03-08-2023 BASO # 0.0 103/ul Normal 0.0-0.1 [facility] Comment on above: Performed By: #### C MP, HSTROPN, BNP #### [facility] [address] [place] [address] Dr. Spring Nash Basophils/100 WBC (Bld) 0.5 % Normal 0.2-2.0 [facility] Comment on above: Performed By: #### C MP, HSTROPN, BNP #### [facility] [address] [place] [address] Dr. Spring Nash EO # 0.4 103/ul Normal 0.0-0.7 [facility] Comment on above: Performed By: #### C MP, HSTROPN, BNP #### [facility] [address] [place] [address] Dr. Spring Nash Eosinophils/100 WBC (Bld) 5.3 % Normal 0.9-7.0 [facility] Comment on above: Performed By: #### C MP, HSTROPN, BNP #### [facility] [address] [place] [address] Dr. Spring Nash Erythrocyte distribution width (RBC) [Ratio] 15.5 % Critically high 11.0-15.0 [facility] Comment on above: Performed By: #### C MP, HSTROPN, BNP #### [facility] [address] [place] [address] Dr. Spring Nash Hematocrit (Bld) [Volume fraction] 30.5 % Critically low 42.0-54.0 [facility] Comment on above: Performed By: #### C MP, HSTROPN, BNP #### [facility] [address] [place] [address] Dr. Spring Nash Hemoglobin (Bld) [Mass/Vol] 9.7 g/dL Critically low 14.0-18.0 [facility] Comment on above: Performed By: #### C MP, HSTROPN, BNP #### [facility] [address] [place] [address] Dr. Spring Nash IG # 0.03 10e3/ul Normal 0.00-0.03 [facility] Comment on above: Performed By: #### C MP, HSTROPN, BNP #### [facility] [address] [place] [address] Dr. Spring Nash IG % 0.5 % Normal 0.0-0.5 [facility] Comment on above: Performed By: #### C MP, HSTROPN, BNP #### [facility] [address] [place] [address] Dr. Spring Nash LYMPH # 1.0 103/ul Critically low 1.2-3.8 [facility] Comment on above: Performed By: #### C MP, HSTROPN, BNP #### [facility] [address] [place] [address] Dr. Spring Nash Lymphocytes/100 WBC (Bld) 14.9 % Critically low 20.5-60.0 [facility] Comment on above: Performed By: #### C MP, HSTROPN, BNP #### [facility] [address] [place] [address] Dr. Spring Nash MANUAL DIFF REQ NO Normal [facility] Comment on above: Performed By: #### C MP, HSTROPN, BNP #### [facility] [address] [place] [address] Dr. Spring Nash MCH (RBC) [Entitic mass] 29.6 pg Normal 25.9-34.0 [facility] Comment on above: Performed By: #### C MP, HSTROPN, BNP #### [facility] [address] [place] [address] Dr. Spring Nash MCHC (RBC) [Mass/Vol] 31.8 g/dL Normal 29.9-35.2 [facility] Comment on above: Performed By: #### C MP, HSTROPN, BNP #### [facility] [address] [place] [address] Dr. Spring Nash MCV (RBC) [Entitic vol] 93.0 fL Normal 80.0-94.0 [facility] Comment on above: Performed By: #### C MP, HSTROPN, BNP #### [facility] [address] [place] [address] Dr. Spring Nash MONO # 0.5 103/ul Normal 0.3-0.8 [facility] Comment on above: Performed By: #### C MP, HSTROPN, BNP #### [facility] [address] [place] [address] Dr. Spring Nash Monocytes/100 WBC (Bld) 7.9 % Normal 1.7-12.0 [facility] Comment on above: Performed By: #### C MP, HSTROPN, BNP #### [facility] [address] [place] [address] Dr. Spring Nash NEUT # 4.7 103/ul Normal 1.4-6.5 [facility] Comment on above: Performed By: #### C MP, HSTROPN, BNP #### [facility] [address] [place] [address] Dr. Spring Nash Neutrophils/100 WBC (Bld) 70.9 % Normal 43.0-75.0 [facility] Comment on above: Performed By: #### C MP, HSTROPN, BNP #### [facility] [address] [address] [address] Spring Nash Platelet mean volume (Bld) [Entitic vol] 11.7 fL Normal 9.5-13.5 [facility] Comment on above: Performed By: #### C MEHREEN HSTROPN, BNP #### [facility] [address] [address] [address] Spring Nash PLT 204 103/ul Normal 150-450 [facility] Comment on above: Performed By: #### C MEHREEN, HSTROPN, BNP #### [facility] [address] [place] [address] Dr. Spring Nash RBC 3.28 106/ul Critically low 4.70-6.10 [facility] Comment on above: Performed By: #### C MEHREEN HSTROPN, BNP #### [facility] [address] [place] [address] Dr. Spring Nash WBC 6.6 103/ul Normal 4.0-11.0 [facility] Comment on above: Performed By: #### C MEHREEN, HSTROPN, BNP #### [facility] [address] [place] [address] Dr. Spring Nash POINT OF CARE GLUCOSEon 02-12 Glucose [Mass/Vol] 273 mg/dL Critically high [address] [place] [address] Comment on above: Performed By: #### P OCGLUC #### [facility] [address] [place] [address] Dr. Spring Nash Glucose [Mass/Vol] 194 mg/dL Critically high [address] [place] [address] Comment on above: Performed By: #### B MP #### [facility] [address] [place] [address] Dr. Spring Nash Glucose [Mass/Vol] 226 mg/dL Critically high [facility]106 [facility] Comment on above: Performed By: #### P OCGLUC #### [facility] [address] [place] [address] Dr. Spring Nash PROF 14(COMP METB)on 023 Albumin [Mass/Vol] 2.5 g/dL Critically low 3.4-5.0 [facility] Comment on above: Performed By: #### P OCGLUC #### [facility] [address] [address] [address] Spring Nash Albumin/Globulin [Mass ratio] 0.8 {ratio} Normal [facility] Comment on above: Performed By: #### P OCGLUC #### [facility] [address] [address] [address] Spring Nash ALP [Catalytic activity/Vol] 114 U/L Normal 46-116 [facility] Comment on above: Performed By: #### P OCGLUC #### [facility] [address] [address] [address] Spring Nash ALT [Catalytic activity/Vol] 15 U/L Critically low 16-63 [facility] Comment on above: Performed By: #### P OCGLUC #### [facility] [address] [address] [address] Spring Nash Anion gap [Moles/Vol] 12.2 mmol/L Normal [facility] Comment on above: Performed By: #### P OCGLUC #### [facility] [address] [address] [address] Spring Nash AST [Catalytic activity/Vol] 14 U/L Critically low 15-37 [facility] Comment on above: Performed By: #### P OCGLUC #### [facility] [address] [address] [address] Sprnig Nash Bilirubin [Mass/Vol] 0.3 mg/dL Normal 0.2-1.0 [facility] Comment on above: Performed By: #### P OCGLUC #### [facility] [address] [address] [address] Spring Nash Calcium [Mass/Vol] 8.4 mg/dL Critically low 8.5-10.1 [facility] Comment on above: Performed By: #### P OCGLUC #### [facility] [address] [address] [address] Spring Nash Chloride [Moles/Vol] 106 mmol/L Normal 98-107 [facility] Comment on above: Performed By: #### P OCGLUC #### [facility] [address] [address] [address] Spring Nash CO2 [Moles/Vol] 27.3 mmol/L Normal 21.0-32.0 [facility] Comment on above: Performed By: #### P OCGLUC #### [facility] [address] [address] [address] Spring Nash Creatinine [Mass/Vol] 3.20 mg/dL Critically high 0.70-1.30 [facility] Comment on above: Performed By: #### P OCGLUC #### [facility] [address] [address] [address] Spring Nash EGFR-AF EGYPTIAN 25 mL/min/1.73m2 Critically low >=60 [facility] Comment on above: Performed By: #### P OCGLUC #### [facility] [address] [address] [address] Spring Nash EGFR-NON AF EGYPTIAN 21 mL/min/1.73m2 Critically low >=60 [facility] Comment on above: Performed By: #### P OCGLUC #### [facility] [address] [address] [address] Spring Nash Globulin (S) [Mass/Vol] 3.1 g/dL Normal [facility] Comment on above: Performed By: #### P OCGLUC #### [facility] [address] [address] [address] Spring Nash Glucose [Mass/Vol] 207 mg/dL Critically high 74-106 [facility] Comment on above: Performed By: #### P OCGLUC #### [facility] [address] [address] [address] Spring Nash Potassium [Moles/Vol] 4.5 mmol/L Normal 3.5-5.1 [facility] Comment on above: Performed By: #### P OCGLUC #### [facility] [address] [address] [address] Spring Nash Protein [Mass/Vol] 5.6 g/dL Critically low 6.4-8.2 [facility] Comment on above: Performed By: #### P OCGLUC #### [facility] [address] [address] [address] Spring Nash Sodium [Moles/Vol] 141 mmol/L Normal 136-145 [facility] Comment on above: Performed By: #### P OCGLUC #### [facility] [address] [place] [address] Dr. Spring Nash Urea nitrogen [Mass/Vol] 52.0 mg/dL Critically high 7.0-18.0 [facility] Comment on above: Performed By: #### P OCGLUC #### [facility] [address] [place] [address] Dr. Spring Nash Urea nitrogen/Creatinine [Mass ratio] 16.2 mg/mg Normal [facility] Comment on above: Performed By: #### P OCGLUC #### [facility] [address] [place] [address] Dr. Spring Nash BNPon 03-07-2023 Natriuretic peptide B (Bld) [Mass/Vol] 4010.0 pg/mL Critically high <=900.0 [facility] Comment on above: Performed By: #### C MP #### [facility] [address] [place] [address] Dr. Spring Nash CBC AUTO DIFFon 03-07-2023 BASO # 0.0 103/ul Normal 0.0-0.1 [facility] Comment on above: Performed By: #### P OCGLUC #### [facility] [address] [place] [address] Dr. Spring Nash Basophils/100 WBC (Bld) 0.3 % Normal 0.2-2.0 [facility] Comment on above: Performed By: #### P OCGLUC #### [facility] [address] [place] [address] Dr. Spring Nash EO # 0.3 103/ul Normal 0.0-0.7 [facility] Comment on above: Performed By: #### P OCGLUC #### [facility] [address] [place] [address] Dr. Spring Nash Eosinophils/100 WBC (Bld) 5.2 % Normal 0.9-7.0 [facility] Comment on above: Performed By: #### P OCGLUC #### [facility] [address] [place] [address] Dr. Spring Nash Erythrocyte distribution width (RBC) [Ratio] 15.7 % Critically high 11.0-15.0 [facility] Comment on above: Performed By: #### P OCGLUC #### [facility] [address] [place] [address] Dr. Spring Nash Hematocrit (Bld) [Volume fraction] 31.0 % Critically low 42.0-54.0 [facility] Comment on above: Performed By: #### P OCGLUC #### [facility] [address] [place] [address] Dr. Spring Nash Hemoglobin (Bld) [Mass/Vol] 9.6 g/dL Critically low 14.0-18.0 [facility] Comment on above: Performed By: #### P OCGLUC #### [facility] [address] [place] [address] Dr. Spring Nash IG # 0.03 10e3/ul Normal 0.00-0.03 [facility] Comment on above: Performed By: #### P OCGLUC #### [facility] [address] [place] [address] Dr. Spring Nash IG % 0.5 % Normal 0.0-0.5 [facility] Comment on above: Performed By: #### P OCGLUC #### [facility] [address] [place] [address] Dr. Spring Nash LYMPH # 0.8 103/ul Critically low 1.2-3.8 [facility] Comment on above: Performed By: #### P OCGLUC #### [facility] [address] [place] [address] Dr. Spring Nash Lymphocytes/100 WBC (Bld) 11.8 % Critically low 20.5-60.0 [facility] Comment on above: Performed By: #### P OCGLUC #### [facility] [address] [place], [place] [id number] Dr. Spring Nash MANUAL DIFF REQ NO Normal [facility] Comment on above: Performed By: #### P OCGLUC #### [facility] [address] [place] [address] Dr. Spring Nash MCH (RBC) [Entitic mass] 29.1 pg Normal 25.9-34.0 [facility] Comment on above: Performed By: #### P OCGLUC #### [facility] [address] [place] [address] Dr. Spring Nash MCHC (RBC) [Mass/Vol] 31.0 g/dL Normal 29.9-35.2 [facility] Comment on above: Performed By: #### P OCGLUC #### [facility] [address] [place] [address] Dr. Spring Nash MCV (RBC) [Entitic vol] 93.9 fL Normal 80.0-94.0 [facility] Comment on above: Performed By: #### P OCGLUC #### [facility] [address] [place] [address] Dr. Spring Nash MONO # 0.5 103/ul Normal 0.3-0.8 [facility] Comment on above: Performed By: #### P OCGLUC #### [facility] [address] [place] [address] Dr. Spring Nash Monocytes/100 WBC (Bld) 7.4 % Normal 1.7-12.0 [facility] Comment on above: Performed By: #### P OCGLUC #### [facility] [address] [place] [address] Dr. Spring Nash NEUT # 4.9 103/ul Normal 1.4-6.5 [facility] Comment on above: Performed By: #### P OCGLUC #### [facility] [address] [place] [address] Dr. Spring Nash Neutrophils/100 WBC (Bld) 74.8 % Normal 43.0-75.0 [facility] Comment on above: Performed By: #### P OCGLUC #### [facility] [address] [place] [address] Dr. Spring Nash Platelet mean volume (Bld) [Entitic vol] 11.7 fL Normal 9.5-13.5 [facility] Comment on above: Performed By: #### P OCGLUC #### [facility] [address] [address] [address] Spring Nash PLT 195 103/ul Normal 150-450 [facility] Comment on above: Performed By: #### P OCGLUC #### [facility] [address] [address] [address] Spring Nash RBC 3.30 106/ul Critically low 4.70-6.10 [facility] Comment on above: Performed By: #### P OCGLUC #### [facility] [address] [address] [address] Spring Nash WBC 6.6 103/ul Normal 4.0-11.0 [facility] Comment on above: Performed By: #### P OCGLUC #### [facility] [address] [address] [address] Spring Nash CHLORIDE URINE RANDOMon 02-12 Chloride, Urine 106 mmol/L Normal Not Estab. [facility] Comment on above: Performed By: #### P OCGLUC #### [facility] [address] [address] [address] Spring Nash POINT OF CARE GLUCOSEon 02-12 Glucose [Mass/Vol] 238 mg/dL Critically high 74-106 [facility] Comment on above: Performed By: #### C ROSITA VERDETROPN, BNP #### [facility] [address] [address] [address] Spring Nash Glucose [Mass/Vol] 215 mg/dL Critically high 74-106 [facility] Comment on above: Performed By: #### C ROSITA VERDETRVENKATESHN, BNP #### [facility] [address] [address] [address] Spring Nash Glucose [Mass/Vol] 181 mg/dL Critically high -106 [facility] Comment on above: Performed By: #### C MP, HSTROPN, BNP #### [facility] [address] [place] [address] Dr. Spring Nash PROF 14(COMP METB)on 023 Albumin [Mass/Vol] 2.4 g/dL Critically low 3.4-5.0 [facility] Comment on above: Performed By: #### C MP #### [facility] [address] [place] [address] Dr. Spring Nash Albumin/Globulin [Mass ratio] 0.7 {ratio} Normal [facility] Comment on above: Performed By: #### C MP #### [facility] [address] [place] [address] Dr. Spring Nash ALP [Catalytic activity/Vol] 102 U/L Normal 46-116 [facility] Comment on above: Performed By: #### C MP #### [facility] [address] [place] [address] Dr. Spring Nash ALT [Catalytic activity/Vol] 18 U/L Normal 16-63 [facility] Comment on above: Performed By: #### C MP #### [facility] [address] [place] [address] Dr. Spring Nash Anion gap [Moles/Vol] 13.1 mmol/L Normal [facility] Comment on above: Performed By: #### C MP #### [facility] [address] [place] [address] Dr. Spring Nash AST [Catalytic activity/Vol] 13 U/L Critically low 15-37 [facility] Comment on above: Performed By: #### C MP #### [facility] [address] [place] [address] Dr. Spring Nash Bilirubin [Mass/Vol] 0.3 mg/dL Normal 0.2-1.0 [facility] Comment on above: Performed By: #### C MP #### [facility] [address] [place] [address] Dr. Spring Nash Calcium [Mass/Vol] 8.1 mg/dL Critically low 8.5-10.1 [facility] Comment on above: Performed By: #### C MP #### [facility] [address] [address] [address] Spring Nash Chloride [Moles/Vol] 108 mmol/L Critically high 98-107 [facility] Comment on above: Performed By: #### C MP #### [facility] [address] [address] [address] Spring Nash CO2 [Moles/Vol] 24.8 mmol/L Normal 21.0-32.0 [facility] Comment on above: Performed By: #### C MP #### [facility] [address] [address] [address] Spring Nash Creatinine [Mass/Vol] 3.39 mg/dL Critically high 0.70-1.30 [facility] Comment on above: Performed By: #### C MP #### [facility] [address] [address] [address] Spring Nash EGFR-AF EGYPTIAN 23 mL/min/1.73m2 Critically low >=60 [facility] Comment on above: Performed By: #### C MP #### [facility] [address] [address] [address] Spring Nash EGFR-NON AF EGYPTIAN 19 mL/min/1.73m2 Critically low >=60 [facility] Comment on above: Performed By: #### C MP #### [facility] [address] [address] [address] Spring Nash Globulin (S) [Mass/Vol] 3.4 g/dL Normal [facility] Comment on above: Performed By: #### C MP #### [facility] [address] [address] [address] Spring Nash Glucose [Mass/Vol] 101 mg/dL Normal 74-106 [facility] Comment on above: Performed By: #### C MP #### [facility] [address] [address] [address] Spring Nash Potassium [Moles/Vol] 4.9 mmol/L Normal 3.5-5.1 [facility] Comment on above: Performed By: #### C MP #### [facility] [address] [address] [address] Spring Nash Protein [Mass/Vol] 5.8 g/dL Critically low 6.4-8.2 [facility] Comment on above: Performed By: #### C MP #### [facility] [address] [address] [address] Spring Nash Sodium [Moles/Vol] 141 mmol/L Normal 136-145 [facility] Comment on above: Performed By: #### C MP #### [facility] [address] [address] [address] Spring Nash Urea nitrogen [Mass/Vol] 53.0 mg/dL Critically high 7.0-18.0 [facility] Comment on above: Performed By: #### C MP #### [facility] [address] [place] [address] Dr. Spring Nash Urea nitrogen/Creatinine [Mass ratio] 15.6 mg/mg Normal [facility] Comment on above: Performed By: #### C MP #### [facility] [address] [place] [address] Dr. Spring Nash BNPon 03-06-2023 Natriuretic peptide B (Bld) [Mass/Vol] 5021.0 pg/mL Critically high <=900.0 [facility] Comment on above: Performed By: #### B MP #### [facility] [address] [place] [address] Dr. Spring Nash CALCIUM URINEon 03-06-2023 UR CALCIUM <5.0 Critically low 5.1-21.0 [facility] Comment on above: Performed By: #### P OCGLUC #### [facility] [address] [place] [address] Dr. Spring Nash CBC AUTO DIFFon 03-06-2023 BASO # 0.0 103/ul Normal 0.0-0.1 [facility] Comment on above: Performed By: #### P OCGLUC #### [facility] [address] [place] [address] Dr. Spring Nash Basophils/100 WBC (Bld) 0.3 % Normal 0.2-2.0 [facility] Comment on above: Performed By: #### P OCGLUC #### [facility] [address] [address] [address] Spring Nash EO # 0.4 103/ul Normal 0.0-0.7 [facility] Comment on above: Performed By: #### P OCGLUC #### [facility] [address] [place] [address] Dr. Spring Nash Eosinophils/100 WBC (Bld) 5.6 % Normal 0.9-7.0 [facility] Comment on above: Performed By: #### P OCGLUC #### [facility] [address] [place] [address] Dr. Spring Nash Erythrocyte distribution width (RBC) [Ratio] 15.6 % Critically high 11.0-15.0 [facility] Comment on above: Performed By: #### P OCGLUC #### [facility] [address] [place] [address] Dr. Spring Nash Hematocrit (Bld) [Volume fraction] 30.7 % Critically low 42.0-54.0 [facility] Comment on above: Performed By: #### P OCGLUC #### [facility] [address] [place] [address] Dr. Spring Nash Hemoglobin (Bld) [Mass/Vol] 9.4 g/dL Critically low 14.0-18.0 [facility] Comment on above: Performed By: #### P OCGLUC #### [facility] [address] [place] [address] Dr. Spring Nash IG # 0.04 10e3/ul Critically high 0.00-0.03 [facility] Comment on above: Performed By: #### P OCGLUC #### [facility] [address] [place] [address] Dr. Spring Nash IG % 0.6 % Critically high 0.0-0.5 [facility] Comment on above: Performed By: #### P OCGLUC #### [facility] [address] [place] [address] Dr. Spring Nash LYMPH # 0.7 103/ul Critically low 1.2-3.8 [facility] Comment on above: Performed By: #### P OCGLUC #### [facility] [address] [place] [address] Dr. Spring Nash Lymphocytes/100 WBC (Bld) 10.7 % Critically low 20.5-60.0 [facility] Comment on above: Performed By: #### P OCGLUC #### [facility] [address] [place] [address] Dr. Spring Nash MANUAL DIFF REQ NO Normal [facility] Comment on above: Performed By: #### P OCGLUC #### [facility] [address] [place] [address] Dr. Spring Nash MCH (RBC) [Entitic mass] 29.5 pg Normal 25.9-34.0 [facility] Comment on above: Performed By: #### P OCGLUC #### [facility] [address] [place] [address] Dr. Spring Nash MCHC (RBC) [Mass/Vol] 30.6 g/dL Normal 29.9-35.2 [facility] Comment on above: Performed By: #### P OCGLUC #### [facility] [address] [place] [address] Dr. Spring Nash MCV (RBC) [Entitic vol] 96.2 fL Critically high 80.0-94 .0 [facility] Comment on above: Performed By: #### P OCGLUC #### [facility] [address] [place] [address] Dr. Spring Nash MONO # 0.6 103/ul Normal 0.3-0.8 [facility] Comment on above: Performed By: #### P OCGLUC #### [facility] [address] [place] [address] Dr. Spring Nash Monocytes/100 WBC (Bld) 8.2 % Normal 1.7-12.0 [facility] Comment on above: Performed By: #### P OCGLUC #### [facility] [address] [place] [address] Dr. Spring Nash NEUT # 5.1 103/ul Normal 1.4-6.5 [facility] Comment on above: Performed By: #### P OCGLUC #### [facility] [address] [address] [address] Spring Nash Neutrophils/100 WBC (Bld) 74.6 % Normal 43.0-75.0 [facility] Comment on above: Performed By: #### P OCGLUC #### [facility] [address] [address] [address] Spring Nash Platelet mean volume (Bld) [Entitic vol] 11.6 fL Normal 9.5-13.5 [facility] Comment on above: Performed By: #### P OCGLUC #### [facility] [address] [address] [address] Spring Nash PLT 176 103/ul Normal 150-450 [facility] Comment on above: Performed By: #### P OCGLUC #### [facility] [address] [address] [address] Spring Nash RBC 3.19 106/ul Critically low 4.70-6.10 [facility] Comment on above: Performed By: #### P OCGLUC #### [facility] [address] [address] [address] Spring Nash WBC 6.8 103/ul Normal 4.0-11.0 [facility] Comment on above: Performed By: #### P OCGLUC #### [facility] [address] [place] [address] Dr. Spring Nash CREATININE URINEon 3 URINE CREAT 20.22 mg/dL Normal 20.00-300. 00 [facility] Comment on above: Performed By: #### C MP, HSTROPN, BNP #### [facility] [address] [address] [address] Spring Nash ECHO LIMITED STUDYon 023 ECHO LIMITED STUDY Patient: MELVI MINOR Exam Date: 03/06/2023 : 1970 Gender:M Ordering : TONY BARKSDALE Admission #: [id number] Family : SHAIKH Lana MORSE . Order #: [id number] CLICK HERE TO VIEW EXAM ECHOCARDIOGRAM REPORT [...] Left Atrium LA Volume Index (2D A2C): 687313 mm3 Left Atrium Systolic Dimension: 4.20 cm Mitral Valve Right Ventricle Aorta AO Root Diam: 3.10 cm Aortic Valve Tricuspid Valve Pulmonic Valve Right Atrium Dictated by: Jason Lord M.D. on 03/06/2023 at 16:49 Approved by: Jason Lord M.D. on 03/06/2023 at 16:54 Normal [facility] POINT OF CARE GLUCOSEon 05-2 Glucose [Mass/Vol] 372 mg/dL Critically high 74-106 [facility] Comment on above: Performed By: #### P OCGLUC #### [facility] [address] [address] [address] Spring Nash Glucose [Mass/Vol] 183 mg/dL Critically high -106 [facility] Comment on above: Performed By: #### P OCGLUC #### [facility] [address] [address] [address] Spring Nash Glucose [Mass/Vol] 118 mg/dL Critically high 74-106 [facility] Comment on above: Performed By: #### P OCGLUC #### [facility] [address] [address] [address] Spring Nash Glucose [Mass/Vol] 145 mg/dL Critically high -106 [facility] Comment on above: Performed By: #### P OCGLUC #### [facility] [address] [place] [address] Dr. Spring Nash POTASSIUM URINEon 03-06-2023 UR POTASSIUM 17.2 mmol/L Normal [facility] Comment on above: Performed By: #### C MP, HSTROPN, BNP #### [facility] [address] [place] [address] Dr. Spring Nash PROF 14(COMP METB)on 023 Albumin [Mass/Vol] 2.3 g/dL Critically low 3.4-5.0 [facility] Comment on above: Performed By: #### B MP #### [facility] [address] [place] [address] Dr. Spring Nash Albumin/Globulin [Mass ratio] 0.7 {ratio} Normal [facility] Comment on above: Performed By: #### B MP #### [facility] [address] [place] [address] Dr. Spring Nash ALP [Catalytic activity/Vol] 121 U/L Critically high 46-116 [facility] Comment on above: Performed By: #### B MP #### [facility] [address] [place] [address] Dr. Spring Nash ALT [Catalytic activity/Vol] 14 U/L Critically low 16-63 [facility] Comment on above: Performed By: #### B MP #### [facility] [address] [place] [address] Dr. Spring Nash Anion gap [Moles/Vol] 14.2 mmol/L Normal [facility] Comment on above: Performed By: #### B MP #### [facility] [address] [address] [address] Spring Nash AST [Catalytic activity/Vol] 13 U/L Critically low 15-37 [facility] Comment on above: Performed By: #### B MP #### [facility] [address] [address] [address] Spring Nash Bilirubin [Mass/Vol] 0.3 mg/dL Normal 0.2-1.0 [facility] Comment on above: Performed By: #### B MP #### [facility] [address] [place] [address] Dr. Spring Nash Calcium [Mass/Vol] 8.0 mg/dL Critically low 8.5-10.1 [facility] Comment on above: Performed By: #### B MP #### [facility] [address] [place] [address] Dr. Spring Nash CO2 [Moles/Vol] 22.5 mmol/L Normal 21.0-32.0 [facility] Comment on above: Performed By: #### B MP #### [facility] [address] [place] [address] Dr. Spring Nash Creatinine [Mass/Vol] 3.48 mg/dL Critically high 0.70-1.30 [facility] Comment on above: Performed By: #### B MP #### [facility] [address] [address] [address] Spring Nash EGFR-AF EGYPTIAN 23 mL/min/1.73m2 Critically low >=60 [facility] Comment on above: Performed By: #### B MP #### [facility] [address] [address] [address] Spring Nash EGFR-NON AF EGYPTIAN 19 mL/min/1.73m2 Critically low >=60 [facility] Comment on above: Performed By: #### B MP #### [facility] [address] [address] [address] Spring Nash Globulin (S) [Mass/Vol] 3.1 g/dL Normal [facility] Comment on above: Performed By: #### B MP #### [facility] [address] [address] [address] Spring Nash Glucose [Mass/Vol] 170 mg/dL Critically high 74-106 [facility] Comment on above: Performed By: #### B MP #### [facility] [address] [address] [address] Spring Nash Potassium [Moles/Vol] 4.7 mmol/L Normal 3.5-5.1 [facility] Comment on above: Performed By: #### B MP #### [facility] [address] [place] [address] Dr. Spring Nash Protein [Mass/Vol] 5.4 g/dL Critically low 6.4-8.2 [facility] Comment on above: Performed By: #### B MP #### [facility] [address] [place] [address] Dr. Spring Nash Urea nitrogen [Mass/Vol] 50.0 mg/dL Critically high 7.0-18.0 [facility] Comment on above: Performed By: #### B MP #### [facility] [address] [place] [address] Dr. Spring Nash Urea nitrogen/Creatinine [Mass ratio] 14.4 mg/mg Normal [facility] Comment on above: Performed By: #### B MP #### [facility] [address] [place] [address] Dr. Spring Nash PROF CHEM 8 (BAS METB)on Anion gap [Moles/Vol] 13.5 mmol/L Normal [facility] Comment on above: Performed By: #### B MP #### [facility] [address] [place] [address] Dr. Spring Nash Calcium [Mass/Vol] 7.8 mg/dL Critically low 8.5-10.1 Th [facility] Comment on above: Performed By: #### B MP #### [facility] [address] [address] [address] Spring Nash Chloride [Moles/Vol] 107 mmol/L Normal 98-107 [facility] Comment on above: Performed By: #### B MP #### [facility] [address] [place] [address] Dr. Spring Nash CO2 [Moles/Vol] 23.6 mmol/L Normal 21.0-32.0 [facility] Comment on above: Performed By: #### B MP #### [facility] [address] [place] [address] Dr. Spring Nash Creatinine [Mass/Vol] 3.60 mg/dL Critically high 0.70-1.30 [facility] Comment on above: Performed By: #### B MP #### [facility] [address] [address] [address] Spring Nash EGFR-AF EGYPTIAN 22 mL/min/1.73m2 Critically low >=60 [facility] Comment on above: Performed By: #### B MP #### [facility] [address] [place] [address] Dr. Spring Nash EGFR-NON AF EGYPTIAN 18 mL/min/1.73m2 Critically low >=60 [facility] Comment on above: Performed By: #### B MP #### [facility] [address] [address] [address] Spring Nash Glucose [Mass/Vol] 175 mg/dL Critically high 74-106 T [facility] Comment on above: Performed By: #### B MP #### [facility] [address] [address] [address] Spring Nash Potassium [Moles/Vol] 5.1 mmol/L Normal 3.5-5.1 [facility] Comment on above: Performed By: #### B MP #### [facility] [address] [place] [address] Dr. Spring Nash Sodium [Moles/Vol] 139 mmol/L Normal 136-145 [facility] Comment on above: Performed By: #### B MP #### [facility] [address] [address] [address] Spring Nash Urea nitrogen [Mass/Vol] 48.0 mg/dL Critically high 7.0-18.0 [facility] Comment on above: Performed By: #### B MP #### [facility] [address] [address] [address] Spring Nash Urea nitrogen/Creatinine [Mass ratio] 13.3 mg/mg Normal [facility] Comment on above: Performed By: #### B MP #### [facility] [address] [address] [address] Spring Nash SODIUM RANDOM URINEon 2022 Sodium (U) [Moles/Vol] 106 mmol/L Critically high 30-90 [facility] Comment on above: Performed By: #### C MP, HSTROPN, BNP #### [facility] [address] [place] [address] Dr. Spring Nash VANCOMYCIN TROUGHon 03-06-20 VANCOMYCIN TROUGH 8.1 ug/ml Normal 5.0-20.0 [facility] Comment on above: Performed By: #### C MP #### [facility] [address] [place] [address] Dr. Spring Nash XR CHEST 2 Von [...] by: SAMANTHA MURPHY Date: 2023-03-06 12:19 Normal [facility] BNPon 03-05-2023 Natriuretic peptide B (Bld) [Mass/Vol] 5356.0 pg/mL Critically high <=900.0 [facility] Comment on above: Performed By: #### P OCGLUC #### [facility] [address] [place] [address] Dr. Spring Nash CBC AUTO DIFFon 03-05-2023 BASO # 0.0 103/ul Normal 0.0-0.1 [facility] Comment on above: Performed By: #### P OCGLUC #### [facility] [address] [place] [address] Dr. Spring Nash Basophils/100 WBC (Bld) 0.3 % Normal 0.2-2.0 [facility] Comment on above: Performed By: #### P OCGLUC #### [facility] [address] [place] [address] Dr. Spring Nash EO # 0.4 103/ul Normal 0.0-0.7 [facility] Comment on above: Performed By: #### P OCGLUC #### [facility] [address] [place] [address] Dr. Spring Nash Eosinophils/100 WBC (Bld) 5.7 % Normal 0.9-7.0 [facility] Comment on above: Performed By: #### P OCGLUC #### [facility] [address] [place] [address] Dr. Spring Nash Erythrocyte distribution width (RBC) [Ratio] 15.6 % Critically high 11.0-15.0 [facility] Comment on above: Performed By: #### P OCGLUC #### [facility] [address] [place] [address] Dr. Spring Nash Hematocrit (Bld) [Volume fraction] 28.9 % Critically low 42.0-54.0 [facility] Comment on above: Performed By: #### P OCGLUC #### [facility] [address] [place] [address] Dr. Spring Nash Hemoglobin (Bld) [Mass/Vol] 9.4 g/dL Critically low 14.0-18.0 [facility] Comment on above: Performed By: #### P OCGLUC #### [facility] [address] [address] [address] Spring Nash IG # 0.03 10e3/ul Normal 0.00-0.03 [facility] Comment on above: Performed By: #### P OCGLUC #### [facility] [address] [place] [address] Dr. Spring Nash IG % 0.4 % Normal 0.0-0.5 [facility] Comment on above: Performed By: #### P OCGLUC #### [facility] [address] [address] [address] Spring Nash LYMPH # 0.9 103/ul Critically low 1.2-3.8 [facility] Comment on above: Performed By: #### P OCGLUC #### [facility] [address] [place] [address] Dr. Spring Nash Lymphocytes/100 WBC (Bld) 11.5 % Critically low 20.5-60.0 [facility] Comment on above: Performed By: #### P OCGLUC #### [facility] [address] [place] [address] Dr. Spring Nash MANUAL DIFF REQ NO Normal [facility] Comment on above: Performed By: #### P OCGLUC #### [facility] [address] [place] [address] Dr. Spring Nash MCH (RBC) [Entitic mass] 29.8 pg Normal 25.9-34.0 [facility] Comment on above: Performed By: #### P OCGLUC #### [facility] [address] [place] [address] Dr. Spring Nash MCHC (RBC) [Mass/Vol] 32.5 g/dL Normal 29.9-35.2 [facility] Comment on above: Performed By: #### P OCGLUC #### [facility] [address] [place] [address] Dr. Spring Nash MCV (RBC) [Entitic vol] 91.7 fL Normal 80.0-94.0 [facility] Comment on above: Performed By: #### P OCGLUC #### [facility] [address] [place], [place] [id number] Dr. Spring Nash MONO # 0.7 103/ul Normal 0.3-0.8 [facility] Comment on above: Performed By: #### P OCGLUC #### [facility] [address] [place] [address] Dr. Spring Nash Monocytes/100 WBC (Bld) 8.9 % Normal 1.7-12.0 [facility] Comment on above: Performed By: #### P OCGLUC #### [facility] [address] [place] [address] Dr. Spring Nash NEUT # 5.6 103/ul Normal 1.4-6.5 [facility] Comment on above: Performed By: #### P OCGLUC #### [facility] [address] [place] [address] Dr. Spring Nash Neutrophils/100 WBC (Bld) 73.2 % Normal 43.0-75.0 [facility] Comment on above: Performed By: #### P OCGLUC #### [facility] [address] [place] [address] Dr. Spring Nash Platelet mean volume (Bld) [Entitic vol] 11.8 fL Normal 9.5-13.5 [facility] Comment on above: Performed By: #### P OCGLUC #### [facility] [address] [place] [address] Dr. Spring Nash PLT 176 103/ul Normal 150-450 [facility] Comment on above: Performed By: #### P OCGLUC #### [facility] [address] [place] [address] Dr. Spring Nash RBC 3.15 106/ul Critically low 4.70-6.10 [facility] Comment on above: Performed By: #### P OCGLUC #### [facility] [address] [place] [address] Dr. Spring Nash WBC 7.6 103/ul Normal 4.0-11.0 [facility] Comment on above: Performed By: #### P OCGLUC #### [facility] [address] [place] [address] Dr. Spring Nash POINT OF CARE GLUCOSEon 02-12 Glucose [Mass/Vol] 272 mg/dL Critically high 74-106 [facility] Comment on above: Performed By: #### C MP, HSTROPN, BNP #### [facility] [address] [address] [address] Spring Nash Glucose [Mass/Vol] 179 mg/dL Critically high 74-106 [facility] Comment on above: Performed By: #### P OCGLUC #### [facility] [address] [address] [address] Spring Nash Glucose [Mass/Vol] 136 mg/dL Critically high -106 [facility] Comment on above: Performed By: #### P OCGLUC #### [facility] [address] [place] [address] Dr. Spring Nash PROF 14(COMP METB)on 023 Albumin [Mass/Vol] 2.3 g/dL Critically low 3.4-5.0 [facility] Comment on above: Performed By: #### P OCGLUC #### [facility] [address] [address] [address] Spring Nash Albumin/Globulin [Mass ratio] 0.8 {ratio} Normal [facility] Comment on above: Performed By: #### P OCGLUC #### [facility] [address] [address] [address] Spring Nash ALP [Catalytic activity/Vol] 116 U/L Normal 46-116 [facility] Comment on above: Performed By: #### P OCGLUC #### [facility] [address] [address] [address] Spring Nash ALT [Catalytic activity/Vol] 15 U/L Critically low 16-63 [facility] Comment on above: Performed By: #### P OCGLUC #### [facility] [address] [address] [address] Spring Nash Anion gap [Moles/Vol] 14.0 mmol/L Normal [facility] Comment on above: Performed By: #### P OCGLUC #### [facility] [address] [address] [address] Spring Nash AST [Catalytic activity/Vol] 15 U/L Normal 15-37 [facility] Comment on above: Performed By: #### P OCGLUC #### [facility] [address] [address] [address] Spring Nash Bilirubin [Mass/Vol] 0.2 mg/dL Normal 0.2-1.0 [facility] Comment on above: Performed By: #### P OCGLUC #### [facility] [address] [address] [address] Spring Nash Calcium [Mass/Vol] 8.0 mg/dL Critically low 8.5-10.1 Th [facility] Comment on above: Performed By: #### P OCGLUC #### [facility] [address] [address] [address] Spring Nash Chloride [Moles/Vol] 108 mmol/L Critically high 98-107 [facility] Comment on above: Performed By: #### P OCGLUC #### [facility] [address] [address] [address] Spring Nash CO2 [Moles/Vol] 22.2 mmol/L Normal 21.0-32.0 [facility] Comment on above: Performed By: #### P OCGLUC #### [facility] [address] [address] [address] Spring Nash Creatinine [Mass/Vol] 3.06 mg/dL Critically high 0.70-1.30 [facility] Comment on above: Performed By: #### P OCGLUC #### [facility] [address] [address] [address] Spring Nash EGFR-AF EGYPTIAN 26 mL/min/1.73m2 Critically low >=60 [facility] Comment on above: Performed By: #### P OCGLUC #### [facility] [address] [address] [address] Spring Nash EGFR-NON AF EGYPTIAN 22 mL/min/1.73m2 Critically low >=60 [facility] Comment on above: Performed By: #### P OCGLUC #### [facility] [address] [address] [address] Spring Nash Globulin (S) [Mass/Vol] 3.0 g/dL Normal [facility] Comment on above: Performed By: #### P OCGLUC #### [facility] [address] [address] [address] Spring Nash Glucose [Mass/Vol] 142 mg/dL Critically high 74-106 [facility] Comment on above: Performed By: #### P OCGLUC #### [facility] [address] [address] [address] Spring Nash Potassium [Moles/Vol] 4.2 mmol/L Normal 3.5-5.1 [facility] Comment on above: Performed By: #### P OCGLUC #### [facility] [address] [address] [address] Spring Nash Protein [Mass/Vol] 5.3 g/dL Critically low 6.4-8.2 [facility] Comment on above: Performed By: #### P OCGLUC #### [facility] [address] [address] [address] Spring Nash Sodium [Moles/Vol] 140 mmol/L Normal 136-145 [facility] Comment on above: Performed By: #### P OCGLUC #### [facility] [address] [address] [address] Spring Nash Urea nitrogen [Mass/Vol] 40.0 mg/dL Critically high 7.0-18.0 [facility] Comment on above: Performed By: #### P OCGLUC #### [facility] [address] [address] [address] Spring Nash Urea nitrogen/Creatinine [Mass ratio] 13.1 mg/mg Normal [facility] Comment on above: Performed By: #### P OCGLUC #### [facility] [address] [place] [address] Dr. Spring Nash BNPon 03-04-2023 Natriuretic peptide B (Bld) [Mass/Vol] 8915.0 pg/mL Critically high <=900.0 [facility] Comment on above: Performed By: #### P OCGLUC #### [facility] [address] [address] [address] Spring Nash CBC AUTO DIFFon 03-04-2023 BASO # 0.0 103/ul Normal 0.0-0.1 [facility] Comment on above: Performed By: #### C MP #### [facility] [address] [address] [address] Spring Nash Basophils/100 WBC (Bld) 0.2 % Normal 0.2-2.0 [facility] Comment on above: Performed By: #### C MP #### [facility] [address] [place] [address] Dr. Spring Nash EO # 0.4 103/ul Normal 0.0-0.7 [facility] Comment on above: Performed By: #### C MP #### [facility] [address] [place] [address] Dr. Spring Nash Eosinophils/100 WBC (Bld) 5.1 % Normal 0.9-7.0 [facility] Comment on above: Performed By: #### C MP #### [facility] [address] [place] [address] Dr. Spring Nash Erythrocyte distribution width (RBC) [Ratio] 15.7 % Critically high 11.0-15.0 [facility] Comment on above: Performed By: #### C MP #### [facility] [address] [place] [address] Dr. Spring Nash Hematocrit (Bld) [Volume fraction] 29.5 % Critically low 42.0-54.0 [facility] Comment on above: Performed By: #### C MP #### [facility] [address] [place] [address] Dr. Spring Nash Hemoglobin (Bld) [Mass/Vol] 9.2 g/dL Critically low 14.0-18.0 [facility] Comment on above: Performed By: #### C MP #### [facility] [address] [place] [address] Dr. Spring Nash IG # 0.03 10e3/ul Normal 0.00-0.03 [facility] Comment on above: Performed By: #### C MP #### [facility] [address] [address] [address] Spring Nash IG % 0.4 % Normal 0.0-0.5 [facility] Comment on above: Performed By: #### C MP #### [facility] [address] [address] [address] Spring Nash LYMPH # 0.9 103/ul Critically low 1.2-3.8 [facility] Comment on above: Performed By: #### C MP #### [facility] [address] [place] [address] Dr. Spring Nash Lymphocytes/100 WBC (Bld) 11.3 % Critically low 20.5-60.0 [facility] Comment on above: Performed By: #### C MP #### [facility] [address] [place] [address] Dr. Spring Nash MANUAL DIFF REQ NO Normal [facility] Comment on above: Performed By: #### C MP #### [facility] [address] [place] [address] Dr. Spring Nash MCH (RBC) [Entitic mass] 29.6 pg Normal 25.9-34.0 [facility] Comment on above: Performed By: #### C MP #### [facility] [address] [place] [address] Dr. Spring Nash MCHC (RBC) [Mass/Vol] 31.2 g/dL Normal 29.9-35.2 [facility] Comment on above: Performed By: #### C MP #### [facility] [address] [place] [address] Dr. Spring Nash MCV (RBC) [Entitic vol] 94.9 fL Critically high 80.0-94 .0 [facility] Comment on above: Performed By: #### C MP #### [facility] [address] [place] [address] Dr. Spring Nash MONO # 0.6 103/ul Normal 0.3-0.8 [facility] Comment on above: Performed By: #### C MP #### [facility] [address] [address] [address] Spring Nash Monocytes/100 WBC (Bld) 7.7 % Normal 1.7-12.0 [facility] Comment on above: Performed By: #### C MP #### [facility] [address] [address] [address] Spring Nash NEUT # 6.2 103/ul Normal 1.4-6.5 [facility] Comment on above: Performed By: #### C MP #### [facility] [address] [address] [address] Spring Nash Neutrophils/100 WBC (Bld) 75.3 % Critically high 43.0-75.0 [facility] Comment on above: Performed By: #### C MP #### [facility] [address] [address] [address] Spring Nash Platelet mean volume (Bld) [Entitic vol] 11.8 fL Normal 9.5-13.5 [facility] Comment on above: Performed By: #### C MP #### [facility] [address] [address] [address] Spring Nash PLT 183 103/ul Normal 150-450 [facility] Comment on above: Performed By: #### C MP #### [facility] [address] [address] [address] Spring Nash RBC 3.11 106/ul Critically low 4.70-6.10 [facility] Comment on above: Performed By: #### C MP #### [facility] [address] [address] [address] Spring Nash WBC 8.2 103/ul Normal 4.0-11.0 [facility] Comment on above: Performed By: #### C MP #### [facility] [address] [address] [address] Spring Nash POINT OF CARE GLUCOSEon 05-2 Glucose [Mass/Vol] 218 mg/dL Critically high 74-106 [facility] Comment on above: Performed By: #### P OCGLUC #### [facility] [address] [address] [address] Spring Nash Glucose [Mass/Vol] 193 mg/dL Critically high 74-106 [facility] Comment on above: Performed By: #### P OCGLUC #### [facility] [address] [address] [address] Spring Nash Glucose [Mass/Vol] 146 mg/dL Critically high 74-106 [facility] Comment on above: Performed By: #### C MP #### [facility] [address] [address] [address] Spring Nash Glucose [Mass/Vol] 65 mg/dL Critically low 74-106 [facility] Comment on above: Performed By: #### P OCGLUC #### [facility] [address] [place] [address] Dr. Spring Nash PROF 14(COMP METB)on 023 Albumin [Mass/Vol] 2.2 g/dL Critically low 3.4-5.0 [facility] Comment on above: Performed By: #### P OCGLUC #### [facility] [address] [address] [address] Spring Nash Albumin/Globulin [Mass ratio] 0.8 {ratio} Normal [facility] Comment on above: Performed By: #### P OCGLUC #### [facility] [address] [address] [address] Spring Nash ALP [Catalytic activity/Vol] 100 U/L Normal 46-116 [facility] Comment on above: Performed By: #### P OCGLUC #### [facility] [address] [address] [address] Spring Nash ALT [Catalytic activity/Vol] 15 U/L Critically low 16-63 [facility] Comment on above: Performed By: #### P OCGLUC #### [facility] [address] [address] [address] Spring Nash Anion gap [Moles/Vol] 13.2 mmol/L Normal [facility] Comment on above: Performed By: #### P OCGLUC #### [facility] [address] [address] [address] Spring Nash AST [Catalytic activity/Vol] 14 U/L Critically low 15-37 [facility] Comment on above: Performed By: #### P OCGLUC #### [facility] [address] [address] [address] Spring Nash Bilirubin [Mass/Vol] 0.3 mg/dL Normal 0.2-1.0 [facility] Comment on above: Performed By: #### P OCGLUC #### [facility] [address] [address] [address] Spring Nash Calcium [Mass/Vol] 8.0 mg/dL Critically low 8.5-10.1 Th [facility] Comment on above: Performed By: #### P OCGLUC #### [facility] [address] [address] [address] Spring Nash Chloride [Moles/Vol] 109 mmol/L Critically high 98-107 [facility] Comment on above: Performed By: #### P OCGLUC #### [facility] [address] [address] [address] Spring Nash CO2 [Moles/Vol] 24.3 mmol/L Normal 21.0-32.0 [facility] Comment on above: Performed By: #### P OCGLUC #### [facility] [address] [address] [address] Spring Nash Creatinine [Mass/Vol] 2.38 mg/dL Critically high 0.70-1.30 [facility] Comment on above: Performed By: #### P OCGLUC #### [facility] [address] [address] [address] Spring Nash EGFR-AF EGYPTIAN 35 mL/min/1.73m2 Critically low >=60 [facility] Comment on above: Performed By: #### P OCGLUC #### [facility] [address] [address] [address] Spring Nash EGFR-NON AF EGYPTIAN 29 mL/min/1.73m2 Critically low >=60 [facility] Comment on above: Performed By: #### P OCGLUC #### [facility] [address] [address] [address] Spring Nash Globulin (S) [Mass/Vol] 2.9 g/dL Normal [facility] Comment on above: Performed By: #### P OCGLUC #### [facility] [address] [address] [address] Spring Nash Glucose [Mass/Vol] 107 mg/dL Critically high 74-106 [facility] Comment on above: Performed By: #### P OCGLUC #### [facility] [address] [address] [address] Spring Nash Potassium [Moles/Vol] 3.5 mmol/L Normal 3.5-5.1 [facility] Comment on above: Performed By: #### P OCGLUC #### [facility] [address] [address] [address] Spring Nash Protein [Mass/Vol] 5.1 g/dL Critically low 6.4-8.2 [facility] Comment on above: Performed By: #### P OCGLUC #### [facility] [address] [address] [address] Spring Nash Sodium [Moles/Vol] 143 mmol/L Normal 136-145 [facility] Comment on above: Performed By: #### P OCGLUC #### [facility] [address] [address] [address] Spring Nash Urea nitrogen [Mass/Vol] 34.0 mg/dL Critically high 7.0-18.0 [facility] Comment on above: Performed By: #### P OCGLUC #### [facility] [address] [address] [address] Spring Nash Urea nitrogen/Creatinine [Mass ratio] 14.3 mg/mg Normal [facility] Comment on above: Performed By: #### P OCGLUC #### [facility] [address] [address] [address] Spring Nash US KELVIN DOP LEG LTon 03-04-20 US KELVIN DOP LEG LT EXAMINATION: US [...] by: MURRAY YEBOAH Date: 2023-03-04 11:26 Normal [facility] BLOOD GASES BTYon 03-03-2023 02 MODE ROOM AIR [facility] Comment on above: Performed By: #### C MP, HSTROPN, BNP #### [facility] [address] [place] [address] Dr. Spring Nash ALLENS TEST Positive [facility] Comment on above: Performed By: #### C MP, HSTROPN, BNP #### [facility] [address] [address] [address] Spring Nash Base excess Calc (Bld) [Moles/Vol] -2.2000 mmol/L Critically low -2.0-2.0 [facility] Comment on above: Performed By: #### C MP, HSTROPN, BNP #### [facility] [address] [address] [address] Spring Nash BIPAP PRESSURE [facility] Comment on above: Performed By: #### C MP, HSTROPN, BNP #### [facility] [address] [address] [address] Spring Nash CPAP [facility] Comment on above: Performed By: #### C MP, HSTROPN, BNP #### [facility] [address] [place] [address] Dr. Spring Nash FIO2 [facility] Comment on above: Performed By: #### C MP, HSTROPN, BNP #### [facility] [address] [address] [address] Spring Nash HCO3 (Bld) [Moles/Vol] 22.8 mmol/L Normal 22.0-26.0 T [facility] Comment on above: Performed By: #### C MP, HSTROPN, BNP #### [facility] [address] [address] [address] Spring Nash [facility] Normal [facility] Comment on above: Performed By: #### C MP, HSTROPN, BNP #### [facility] [address] [address] [address] Spring Nash MINUTE VOLUME Normal [facility] Comment on above: Performed By: #### C MP, HSTROPN, BNP #### [facility] [address] [address] [address] Spring Nash Oxygen (Bld) [Partial pressure] 86.8 mm[Hg] Normal 80.0-100.0 [facility] Comment on above: Performed By: #### C MP, HSTROPN, BNP #### [facility] [address] [address] [address] Spring Nash Oxygen saturation in Blood 97.7 % Normal 95.0-100.0 [facility] Comment on above: Performed By: #### C MP, HSTROPN, BNP #### [facility] [address] [address] [address] Spring Nash PCO2 37.9 mmHg Normal 35.0-45.0 [facility] Comment on above: Performed By: #### C MP, HSTROPN, BNP #### [facility] [address] [place] [address] Dr. Spring Nash [facility] Normal [facility] Comment on above: Performed By: #### C MP, HSTROPN, BNP #### [facility] [address] [address] [address] Spring Nash pH (Bld) 7.388 [pH] Normal 7.350-7.45 0 [facility] Comment on above: Performed By: #### C MP, HSTROPN, BNP #### [facility] [address] [place] [address] Dr. Spring Nash [facility] Comment on above: Performed By: #### C MP, HSTROPN, BNP #### [facility] [address] [place] [address] Dr. Spring Nash [facility] Comment on above: Performed By: #### C MP, HSTROPN, BNP #### [facility] [address] [place] [address] Dr. Spring Nash PUNCTURE SITE LR [facility] Comment on above: Performed By: #### C MP, HSTROPN, BNP #### [facility] [address] [place] [address] Dr. Spring Nash [facility] Comment on above: Performed By: #### C MP, HSTROPN, BNP #### [facility] [address] [place] [address] Dr. Spring Nash [facility] Comment on above: Performed By: #### C MP, HSTROPN, BNP #### [facility] [address] [place] [address] Dr. Spring Nash [facility] Comment on above: Performed By: #### C MP, HSTROPN, BNP #### [facility] [address] [place] [address] Dr. Spring Nsah BNPon 03-03-2023 Natriuretic peptide B (Bld) [Mass/Vol] 29076.0 pg/mL Critically high <=900.0 [facility] Comment on above: Performed By: #### C MP, HSTROPN, BNP #### [facility] [address] [place] [address] Dr. Spring Nash CBC AUTO DIFFon 03-03-2023 BASO # 0.0 103/ul Normal 0.0-0.1 [facility] Comment on above: Performed By: #### C MP #### [facility] [address] [place] [address] Dr. Spring Nash Basophils/100 WBC (Bld) 0.2 % Normal 0.2-2.0 [facility] Comment on above: Performed By: #### C MP #### [facility] [address] [place] [address] Dr. Spring Nash EO # 0.4 103/ul Normal 0.0-0.7 [facility] Comment on above: Performed By: #### C MP #### [facility] [address] [place] [address] Dr. Spring Nash Eosinophils/100 WBC (Bld) 3.2 % Normal 0.9-7.0 [facility] Comment on above: Performed By: #### C MP #### [facility] [address] [place] [address] Dr. Spring Nash Erythrocyte distribution width (RBC) [Ratio] 15.1 % Critically high 11.0-15.0 [facility] Comment on above: Performed By: #### C MP #### [facility] [address] [place] [address] Dr. Spring Nash Hematocrit (Bld) [Volume fraction] 33.2 % Critically low 42.0-54.0 [facility] Comment on above: Performed By: #### C MP #### [facility] [address] [place] [address] Dr. Spring Nash Hemoglobin (Bld) [Mass/Vol] 10.3 g/dL Critically low 14.0-18.0 [facility] Comment on above: Performed By: #### C MP #### [facility] [address] [place] [address] Dr. Spring Nash IG # 0.08 10e3/ul Critically high 0.00-0.03 [facility] Comment on above: Performed By: #### C MP #### [facility] [address] [place] [address] Dr. Spring Nash IG % 0.7 % Critically high 0.0-0.5 [facility] Comment on above: Performed By: #### C MP #### [facility] [address] [place] [address] Dr. Spring Nash LYMPH # 0.9 103/ul Critically low 1.2-3.8 [facility] Comment on above: Performed By: #### C MP #### [facility] [address] [place] [address] Dr. Spring Nash Lymphocytes/100 WBC (Bld) 7.5 % Critically low 20.5-60.0 [facility] Comment on above: Performed By: #### C MP #### [facility] [address] [place] [address] Dr. Spring Nash MANUAL DIFF REQ NO Normal [facility] Comment on above: Performed By: #### C MP #### [facility] [address] [place] [address] Dr. Spring Nash MCH (RBC) [Entitic mass] 29.2 pg Normal 25.9-34.0 [facility] Comment on above: Performed By: #### C MP #### [facility] [address] [place] [address] Dr. Spring Nash MCHC (RBC) [Mass/Vol] 31.0 g/dL Normal 29.9-35.2 [facility] Comment on above: Performed By: #### C MP #### [facility] [address] [place] [address] Dr. Spring Nash MCV (RBC) [Entitic vol] 94.1 fL Critically high 80.0-94 .0 [facility] Comment on above: Performed By: #### C MP #### [facility] [address] [place] [address] Dr. Spring Nash MONO # 0.8 103/ul Normal 0.3-0.8 [facility] Comment on above: Performed By: #### C MP #### [facility] [address] [place] [address] Dr. Spring Nash Monocytes/100 WBC (Bld) 6.2 % Normal 1.7-12.0 [facility] Comment on above: Performed By: #### C MP #### [facility] [address] [place] [address] Dr. Spring Nash NEUT # 9.9 103/ul Critically high 1.4-6.5 [facility] Comment on above: Performed By: #### C MP #### [facility] [address] [place] [address] Dr. Spring Nash Neutrophils/100 WBC (Bld) 82.2 % Critically high 43.0-75.0 [facility] Comment on above: Performed By: #### C MP #### [facility] [address] [place] [address] Dr. Spring Nash Platelet mean volume (Bld) [Entitic vol] 11.8 fL Normal 9.5-13.5 [facility] Comment on above: Performed By: #### C MP #### [facility] [address] [place] [address] Dr. Spring Nash PLT 196 103/ul Normal 150-450 [facility] Comment on above: Performed By: #### C MP #### [facility] [address] [place] [address] Dr. Spring Nash RBC 3.53 106/ul Critically low 4.70-6.10 [facility] Comment on above: Performed By: #### C MP #### [facility] [address] [place] [address] Dr. Spring Nash WBC 12.0 103/ul Critically high 4.0-11.0 [facility] Comment on above: Performed By: #### C MP #### [facility] [address] [place] [address] Dr. Spring Nash BASO # 0.0 103/ul Normal 0.0-0.1 [facility] Comment on above: Performed By: #### C MP #### [facility] [address] [place] [address] Dr. Spring Nash Basophils/100 WBC (Bld) 0.3 % Normal 0.2-2.0 [facility] Comment on above: Performed By: #### C MP #### [facility] [address] [place] [address] Dr. Spring Nash EO # 0.5 103/ul Normal 0.0-0.7 [facility] Comment on above: Performed By: #### C MP #### [facility] [address] [place] [address] Dr. Spring Nash Eosinophils/100 WBC (Bld) 3.8 % Normal 0.9-7.0 [facility] Comment on above: Performed By: #### C MP #### [facility] [address] [address] [address] Spring Nash Erythrocyte distribution width (RBC) [Ratio] 14.9 % Normal 11.0-15.0 [facility] Comment on above: Performed By: #### C MP #### [facility] [address] [address] [address] Spring Nash Hematocrit (Bld) [Volume fraction] 33.1 % Critically low 42.0-54.0 [facility] Comment on above: Performed By: #### C MP #### [facility] [address] [address] [address] Spring Nash Hemoglobin (Bld) [Mass/Vol] 10.6 g/dL Critically low 14.0-18.0 [facility] Comment on above: Performed By: #### C MP #### [facility] [address] [place] [address] Dr. Spring Nash IG # 0.07 10e3/ul Critically high 0.00-0.03 [facility] Comment on above: Performed By: #### C MP #### [facility] [address] [address] [address] Spring Nash IG % 0.6 % Critically high 0.0-0.5 [facility] Comment on above: Performed By: #### C MP #### [facility] [address] [address] [address] Spring Nash LYMPH # 1.1 103/ul Critically low 1.2-3.8 [facility] Comment on above: Performed By: #### C MP #### [facility] [address] [address] [address] pSring Nash Lymphocytes/100 WBC (Bld) 9.2 % Critically low 20.5-60.0 [facility] Comment on above: Performed By: #### C MP #### [facility] [address] [place] [address] Dr. Spring Nash MANUAL DIFF REQ NO Normal [facility] Comment on above: Performed By: #### C MP #### [facility] [address] [address] [address] Spring Nash MCH (RBC) [Entitic mass] 29.7 pg Normal 25.9-34.0 [facility] Comment on above: Performed By: #### C MP #### [facility] [address] [address] [address] Spring Nash MCHC (RBC) [Mass/Vol] 32.0 g/dL Normal 29.9-35.2 [facility] Comment on above: Performed By: #### C MP #### [facility] [address] [address] [address] Spring Nash MCV (RBC) [Entitic vol] 92.7 fL Normal 80.0-94.0 [facility] Comment on above: Performed By: #### C MP #### [facility] [address] [place] [address] Dr. Spring Nash MONO # 0.7 103/ul Normal 0.3-0.8 [facility] Comment on above: Performed By: #### C MP #### [facility] [address] [address] [address] Spring Nash Monocytes/100 WBC (Bld) 6.1 % Normal 1.7-12.0 [facility] Comment on above: Performed By: #### C MP #### [facility] [address] [place] [address] Dr. Spring Nash NEUT # 9.4 103/ul Critically high 1.4-6.5 [facility] Comment on above: Performed By: #### C MP #### [facility] [address] [place] [address] Dr. Spring Nash Neutrophils/100 WBC (Bld) 80.0 % Critically high 43.0-75.0 [facility] Comment on above: Performed By: #### C MP #### [facility] [address] [place] [address] Dr. Spring Nash Platelet mean volume (Bld) [Entitic vol] 11.8 fL Normal 9.5-13.5 [facility] Comment on above: Performed By: #### C MP #### [facility] [address] [place], [place] [address] Dr. Spring Nash PLT 210 103/ul Normal 150-450 [facility] Comment on above: Performed By: #### C MP #### [facility] [address] [place], [place] [address] Dr. Spring Nash RBC 3.57 106/ul Critically low 4.70-6.10 [facility] Comment on above: Performed By: #### C MP #### [facility] [address] [place], [place] [address] Dr. Spring Nash WBC 11.7 103/ul Critically high 4.0-11.0 [facility] Comment on above: Performed By: #### C MP #### [facility] [address] [place], [place] [address] Dr. Spring Nash CRPon 03-03-2023 CRP 1.0 mg/dL Normal <=1.0 [facility] Comment on above: Performed By: #### B MP #### [facility] [address] [place], [place] [address] Dr. Spring Nash CTA CHEST WO W [...] LOTTIE NESBITT Date: 2023-03-03 00:50 Normal [facility] D-DIMERon 03-03-2023 D-DIMER 0.67 mg/L FEU Critically high <=0.59 [facility] Comment on above: Performed By: #### P OCGLUC #### [facility] [address] [address] [address] Spring Nash D-DIMER COMMENTS SEE BELOW Normal [facility] Comment on above: Result Comment: Incr eases [...] hospitalization. Performed By: #### P OCGLUC #### [facility] [address] [address] [address] Spring Nash POINT OF CARE GLUCOSEon 02-12 Glucose [Mass/Vol] 233 mg/dL Critically high 74-106 [facility] Comment on above: Performed By: #### P OCGLUC #### [facility] [address] [address] [address] Spring Nash Glucose [Mass/Vol] 177 mg/dL Critically high -106 [facility] Comment on above: Performed By: #### P OCGLUC #### [facility] [address] [place] [address] Dr. Spring Nash Glucose [Mass/Vol] 268 mg/dL Critically high -106 [facility] Comment on above: Performed By: #### P OCGLUC #### [facility] [address] [place] [address] Dr. Spring Nash PROF 14(COMP METB)on 023 Albumin [Mass/Vol] 2.6 g/dL Critically low 3.4-5.0 [facility] Comment on above: Performed By: #### C MP, HSTROPN, BNP #### [facility] [address] [place] [address] Dr. Spring Nash Albumin/Globulin [Mass ratio] 0.8 {ratio} Normal [facility] Comment on above: Performed By: #### C MP, HSTROPN, BNP #### [facility] [address] [place] [address] Dr. Spring Nash ALP [Catalytic activity/Vol] 160 U/L Critically high 46-116 [facility] Comment on above: Performed By: #### C MP, HSTROPN, BNP #### [facility] [address] [place] [address] Dr. Spring Nash ALT [Catalytic activity/Vol] 17 U/L Normal 16-63 [facility] Comment on above: Performed By: #### C MP, HSTROPN, BNP #### [facility] [address] [place] [address] Dr. Spring Nash Anion gap [Moles/Vol] 14.8 mmol/L Normal [facility] Comment on above: Performed By: #### C MP, HSTROPN, BNP #### [facility] [address] [place] [address] Dr. Spring Nash AST [Catalytic activity/Vol] 17 U/L Normal 15-37 [facility] Comment on above: Performed By: #### C MP, HSTROPN, BNP #### [facility] [address] [place] [address] Dr. Spring Nash Bilirubin [Mass/Vol] 0.5 mg/dL Normal 0.2-1.0 [facility] Comment on above: Performed By: #### C MP, HSTROPN, BNP #### [facility] [address] [place] [address] Dr. Spring Nash Calcium [Mass/Vol] 8.3 mg/dL Critically low 8.5-10.1 Th [facility] Comment on above: Performed By: #### C MP, HSTROPN, BNP #### [facility] [address] [address] [address] Spring Nash Chloride [Moles/Vol] 106 mmol/L Normal 98-107 [facility] Comment on above: Performed By: #### C MP, HSTROPN, BNP #### [facility] [address] [address] [address] Spring Nash CO2 [Moles/Vol] 21.9 mmol/L Normal 21.0-32.0 [facility] Comment on above: Performed By: #### C MP, HSTROPN, BNP #### [facility] [address] [place] [address] Dr. Spring Nash Creatinine [Mass/Vol] 2.00 mg/dL Critically high 0.70-1.30 [facility] Comment on above: Performed By: #### C MP, HSTROPN, BNP #### [facility] [address] [place] [address] Dr. Spring Nash EGFR-AF EGYPTIAN 43 mL/min/1.73m2 Critically low >=60 [facility] Comment on above: Performed By: #### C MP, HSTROPN, BNP #### [facility] [address] [place] [address] Dr. Spring Nash EGFR-NON AF EGYPTIAN 35 mL/min/1.73m2 Critically low >=60 [facility] Comment on above: Performed By: #### C MP, HSTROPN, BNP #### [facility] [address] [address] [address] Spring Nash Globulin (S) [Mass/Vol] 3.3 g/dL Normal [facility] Comment on above: Performed By: #### C MP, HSTROPN, BNP #### [facility] [address] [address] [address] Spring Nash Glucose [Mass/Vol] 306 mg/dL Critically high 74-106 [facility] Comment on above: Performed By: #### C MP, HSTROPN, BNP #### [facility] [address] [address] [address] Spring Nash Potassium [Moles/Vol] 3.7 mmol/L Normal 3.5-5.1 [facility] Comment on above: Performed By: #### C MP, HSTROPN, BNP #### [facility] [address] [place] [address] Dr. Spring Nash Protein [Mass/Vol] 5.9 g/dL Critically low 6.4-8.2 [facility] Comment on above: Performed By: #### C MP, HSTROPN, BNP #### [facility] [address] [place] [address] Dr. Spring Nash Sodium [Moles/Vol] 139 mmol/L Normal 136-145 [facility] Comment on above: Performed By: #### C MP, HSTROPN, BNP #### [facility] [address] [place] [address] Dr. Spring Nash Urea nitrogen [Mass/Vol] 30.0 mg/dL Critically high 7.0-18.0 [facility] Comment on above: Performed By: #### C MP, HSTROPN, BNP #### [facility] [address] [place] [address] Dr. Spring Nash Urea nitrogen/Creatinine [Mass ratio] 15.0 mg/mg Normal [facility] Comment on above: Performed By: #### C MP, HSTROPN, BNP #### [facility] [address] [place] [address] Dr. Spring Nash Albumin [Mass/Vol] 2.7 g/dL Critically low 3.4-5.0 [facility] Comment on above: Performed By: #### C MP, HSTROPN, BNP #### [facility] [address] [place] [address] Dr. Spring Nash Albumin/Globulin [Mass ratio] 0.8 {ratio} Normal [facility] Comment on above: Performed By: #### C MP, HSTROPN, BNP #### [facility] [address] [place] [address] Dr. Spring Nash ALP [Catalytic activity/Vol] 188 U/L Critically high 46-116 [facility] Comment on above: Performed By: #### C MP, HSTROPN, BNP #### [facility] [address] [place] [address] Dr. Spring Nash ALT [Catalytic activity/Vol] 19 U/L Normal 16-63 [facility] Comment on above: Performed By: #### C MP, HSTROPN, BNP #### [facility] [address] [place] [address] Dr. Spring Nash Anion gap [Moles/Vol] 14.4 mmol/L Normal [facility] Comment on above: Performed By: #### C MP, HSTROPN, BNP #### [facility] [address] [place] [address] Dr. Spring Nash AST [Catalytic activity/Vol] 18 U/L Normal 15-37 [facility] Comment on above: Performed By: #### C MP, HSTROPN, BNP #### [facility] [address] [place] [address] Dr. Spring Nash Bilirubin [Mass/Vol] 0.4 mg/dL Normal 0.2-1.0 [facility] Comment on above: Performed By: #### C MP, HSTROPN, BNP #### [facility] [address] [place] [address] Dr. Spring Nash Calcium [Mass/Vol] 8.3 mg/dL Critically low 8.5-10.1 [facility] Comment on above: Performed By: #### C MP, HSTROPN, BNP #### [facility] [address] [place] [address] Dr. Spring Nash Chloride [Moles/Vol] 106 mmol/L Normal 98-107 [facility] Comment on above: Performed By: #### C MP, HSTROPN, BNP #### [facility] [address] [place] [address] Dr. Spring Nash CO2 [Moles/Vol] 23.7 mmol/L Normal 21.0-32.0 [facility] Comment on above: Performed By: #### C MP, HSTROPN, BNP #### [facility] [address] [place] [address] Dr. Spring Nash Creatinine [Mass/Vol] 2.10 mg/dL Critically high 0.70-1.30 [facility] Comment on above: Performed By: #### C MP, HSTROPN, BNP #### [facility] [address] [place] [address] Dr. Spring Nash EGFR-AF EGYPTIAN 41 mL/min/1.73m2 Critically low >=60 [facility] Comment on above: Performed By: #### C MP, HSTROPN, BNP #### [facility] [address] [place] [address] Dr. Spring Nash EGFR-NON AF EGYPTIAN 33 mL/min/1.73m2 Critically low >=60 [facility] Comment on above: Performed By: #### C MP, HSTROPN, BNP #### [facility] [address] [place] [address] Dr. Spring Nash Globulin (S) [Mass/Vol] 3.4 g/dL Normal [facility] Comment on above: Performed By: #### C MP, HSTROPN, BNP #### [facility] [address] [place] [address] Dr. Spring Nash Glucose [Mass/Vol] 343 mg/dL Critically high 74-106 [facility] Comment on above: Performed By: #### C MP, HSTROPN, BNP #### [facility] [address] [place] [address] Dr. Spring Nash Potassium [Moles/Vol] 4.1 mmol/L Normal 3.5-5.1 [facility] Comment on above: Performed By: #### C MP, HSTROPN, BNP #### [facility] [address] [place] [address] Dr. Spring Nash Protein [Mass/Vol] 6.1 g/dL Critically low 6.4-8.2 Th [facility] Comment on above: Performed By: #### C MP, HSTROPN, BNP #### [facility] [address] [address] [address] Spring Nash Sodium [Moles/Vol] 140 mmol/L Normal 136-145 [facility] Comment on above: Performed By: #### C MP, HSTROPN, BNP #### [facility] [address] [address] [address] Spring Nash Urea nitrogen [Mass/Vol] 29.0 mg/dL Critically high 7.0-18.0 [facility] Comment on above: Performed By: #### C MP, HSTROPN, BNP #### [facility] [address] [place] [address] Dr. Spring Nash Urea nitrogen/Creatinine [Mass ratio] 13.8 mg/mg Normal [facility] Comment on above: Performed By: #### C MP, HSTROPN, BNP #### [facility] [address] [place] [address] Dr. Spring Nash SED RATE WESTERGRENon 2022 SED RATE 52 mm/hr Critically high <=20 [facility] Comment on above: Performed By: #### C MP, HSTROPN, BNP #### [facility] [address] [place] [address] Dr. Spring Nash TROPONIN, HIGH SENSITIVITYon 03-03-2023 HSTROP 44.7 pg/mL Normal 4.0-76.1 [facility] Comment on above: Result Comment: CUT- OFF POINTS HAVE BEEN ESTABLISHED BASED ON THE FOURTH UNIVERSAL DEFINITIONS OF MYOCARDIAL INFARCTION. THE UPPER REFERENCE LIMIT (URL) OF TROPONIN, DEFINED THE 99TH PERCENTILE OF cTnI DISTRIBUTION IN A REFERENCE POPULATION, HAS BEEN CONFIRMED THE DECISION THRESHOLD FOR NE DIAGNOSIS. Performed By: #### C MP, HSTROPN, BNP #### [facility] [address] [place] [address] Dr. Spring Nash URIC ACID SERUMon 03-03-2023 Urate [Mass/Vol] 7.3 mg/dL Critically high 3.5-7.2 [facility] Comment on above: Performed By: #### B MP #### [facility] [address] [address] [address] Spring Nash Covid-19 PCR ([facility])on 01-13 SARS-CoV-2 (COVID-19) RNA HONEY+probe Ql (Unsp spec) Not detected Normal NOT DETECTED [facility] Comment on above: Result Comment: This test is not yet approved or cleared by the [place] FDA. When there are no FDA-approved or cleared tests available, and other criteria are met, FDA can make tests available under an emergency access mechanism called an Emergency Use Authorization (EUA). The EUA for this test is supported by the [place] of Health and Human Service's (HHS's) declaration [...] consistent with SARS-CoV-2. Performed By: #### C MEHREEN HSTROPN, BNP #### [facility] [address] [place] [address] Dr. Spring Nash INFLUENZA A AND B AGon 01-31 [facility] SEE BELOW Normal [facility] Comment on above: Result Comment: Nega tive for Flu A protein angiten. Infection due to Flu A cannot be ruled out. Flu A angiten in the sample may be below the detection limit of the test. Performed By: #### C MEHREEN, HSTROPN, BNP #### [facility] [id number] Spring [facility] SEE BELOW Normal [facility] Comment on above: Result Comment: Nega tive for Flu B protein antigen. Infection due to Flu B cannot be ruled out. Flu B antigen in the sample may be below the detection limit of the test. Performed By: #### C MP, HSTROPN, BNP #### [facility] [address] [place] [address] Dr. Spring Nash INFLUENZA A AG Negative Normal NEGATIVE SEE COMMENT [facility] Comment on above: Performed By: #### C MP, HSTROPN, BNP #### [facility] [address] [address] [address] Spring Nash INFLUENZA B AG Negative Normal NEGATIVE SEE COMMENT [facility] Comment on above: Performed By: #### C MP, HSTROPN, BNP #### [facility] [address] [address] [address] Spring Nash SYMPTOMATIC COVID-19 ANTIGEN on 01-31-2023 EUA Statement SEE BELOW Normal [facility] Comment on above: Result Comment: This [...] sooner. Performed By: #### P OCGLUC #### [facility] [address] [place] [address] Dr. Spring Nash SARS-CoV-2 (COVID-19) RNA HONEY+probe Ql (Unsp spec) Negative Normal NEGATIVE [facility] Comment on above: Performed By: #### P OCGLUC #### [facility] [address] [place] [address] Dr. Spring Nash Study observation Right reti na by 01-08-2023 [facility] Radiology Study observation (narrative) [facility] Telephone Encounteron 2022 Body Press Operator Authentication Interface Message Text Pt's family member Ayla Minor called to let us know that pt is admitted to the hospital currently so he would need to have the urgent eye appt for tomorrow rescheduled. Contact Ayla @[phone] Normal [facility] Telephone Encounteron 2022 Body Press Operator Authentication Interface Message Text Patient states can come in next Saturday at 10 am Normal [facility] Patient Instructionson 01-01 [employer] Operator Authentication Interface Message Text Use the provided [...] an appointment for next Saturday. Normal [facility] Progress Noteson 01-01-2023 Body Press Operator Authentication Interface Message Text Urgent visit for [...] resident's note. Brady Lowry MD Normal [facility] Telephone Encounteron 2022 Body Press Operator Authentication Interface Message Text On chart review, [...] patient in for an urgent visit at [facility] Eye clinic located 3rd floor [facility] Urgent visit today at 2:00 PM. Dilate OU Lyndsay Cooper MD Ophthalmology Resident, PGY-2 Normal [facility] Body Press Operator Authentication Interface Message Text Mr. Minor is a patient of Dr. Frank. He cannot see out of his R eye... sees nothing. States he woke up today with eye unable to open due to discharge. Believes he has an infection. He can be reached at [phone]. [facility] - [facility]U - BOTH EY ESon 12-19-2022 Right Eye Macula findings include microaneurysms. Periphery findings include hemorrhage. Left Eye Macula findings include microaneurysms. Periphery findings include hemorrhage, neovascularization. [facility] Radiology Study observation (narrative) [facility] CUI RETINAL PHOTOCOAGULATION - OU - BOTH EYESon 12-19-2022 [facility] Radiology Study observation (narrative) [facility] Progress Noteson 12-19-2022 Body Press Operator Authentication Interface Message Text Lost to f/u [...] Dilate OU OCT mac OU Normal [facility] Study observation Right reti na by OCTon 12-19-2022 [facility] Radiology Study observation (narrative) [facility] INTRAVITREAL INJECTION, PHAR MACOLOGIC AGENT - [...] mL Route: Intravitreal, Site: Right Eye Lot: [id number], Expiration date: 10/18/2022 Left Eye Preparation included 10% betadine to eyelids. A 30 gauge needle was used. Injection Medications: 1.25 mg bevacizumab 1.25MG/0.05 mL Route: Intravitreal, Site: Left Eye Lot: [id number], Expiration date: 10/18/2022 Post-op Right Eye Post [...] written and verbal post procedure care education. [facility] Radiology Study observation (narrative) [facility] Study observation Right reti na by OCTon 10-17-2022 [facility] Radiology Study observation (narrative) [facility] CBC W MANUAL DIFFon 10-04-20 22 ATYPICAL LYMPH # Normal [facility] Comment on above: Performed By: #### C SHIRA #### [facility] [address] [place] [address] Dr. Spring Nash ATYPICAL LYMPH % Normal [facility] Comment on above: Performed By: #### C SHIRA #### [facility] [address] [place] [address] Dr. Spring Nash BAND # 0.0 103/ul Normal 0.0-0.3 [facility] Comment on above: Performed By: #### C SHIRA #### [facility] [address] [place] [address] Dr. Spring Nash BAND % 0 % Normal 0-5 [facility] Comment on above: Performed By: #### C SHIRA #### [facility] [address] [address] [address] Spring Nash BASOM # 0.00 103/ul Normal 0.00-0.10 [facility] Comment on above: Performed By: #### C SHIRA #### [facility] [address] [address] [address] Spring Nash BASOM % 0.0 % Critically low 0.2-2.0 [facility] Comment on above: Performed By: #### C SHIRA #### [facility] [address] [place] [address] Dr. Spring Nash BLAST # Normal [facility] Comment on above: Performed By: #### C SHIRA #### [facility] [address] [place] [address] Dr. Spring Nash BLAST % Normal [facility] Comment on above: Performed By: #### C SHIRA #### [facility] [address] [place] [address] Dr. Spring Nash CORRECTED WBC Normal 4.0-11.0 [facility] Comment on above: Performed By: #### C SHIRA #### [facility] [address] [place] [address] Dr. Spring Nash EOS # 0.00 103/ul Normal 0.00-0.70 [facility] Comment on above: Performed By: #### C SHIRA #### [facility] [address] [place] [address] Dr. Spring Nash EOS% 0.0 % Critically low 0.9-7.0 [facility] Comment on above: Performed By: #### C SHIRA #### [facility] [address] [place] [address] Dr. Spring Nash HCT 28.5 % Critically low 42.0-54.0 [facility] Comment on above: Performed By: #### C SHIRA #### [facility] [address] [place] [address] Dr. Spring Nash HGB 9.5 g/dl Critically low 14.0-18.0 [facility] Comment on above: Performed By: #### C SHIRA #### [facility] [address] [place] [address] Dr. Spring Nash LYMPHM # 0.00 103/ul Critically low 1.20-3.80 [facility] Comment on above: Performed By: #### C SHIRA #### [facility] [address] [place] [address] Dr. Spring Nash LYMPHM% 0.0 % Critically low 20.5-60.0 [facility] Comment on above: Performed By: #### C SHIRA #### [facility] [address] [place] [address] Dr. Spring Nash MCH 30.3 pg Normal 25.9-34.0 [facility] Comment on above: Performed By: #### C SHIRA #### [facility] [address] [place] [address] Dr. Spring Nash MCHC 33.3 g/dl Normal 29.9-35.2 [facility] Comment on above: Performed By: #### C SHIRA #### [facility] [address] [place] [address] Dr. Spring Nash MCV 90.8 fL Normal 80.0-94.0 [facility] Comment on above: Performed By: #### C SHIRA #### [facility] [address] [place] [address] Dr. Spring Nash METAMYELOCYTE # Normal [facility] Comment on above: Performed By: #### C SHIRA #### [facility] [address] [place] [address] Dr. Spring Nash METAMYELOCYTE % Normal [facility] Comment on above: Performed By: #### C SHIRA #### [facility] [address] [place] [address] Dr. Spring Nash MONOM# 0.00 103/ul Critically low 0.30-0.80 [facility] Comment on above: Performed By: #### C SHIRA #### [facility] [id number] Spring Nash MONOM% 0.0 % Critically low 1.7-12.0 [facility] Comment on above: Performed By: #### C SHIRA #### [facility] [id number] Spring Nash MPV 12.0 fL Normal 9.5-13.5 [facility] Comment on above: Performed By: #### C SHIRA #### [facility] [address] [address] [address] Spring Nash MYELOCYTE # Normal [facility] Comment on above: Performed By: #### C SHIRA #### [facility] [address] [place] [address] Dr. Spring Nash MYELOCYTE % Normal [facility] Comment on above: Performed By: #### Dread SILVA #### [facility] [address] [place] [address] Dr. Spring Nash NRBC Normal [facility] Comment on above: Performed By: #### C SHIRA #### [facility] [address] [place] [address] Dr. Spring Nash PLT 182 103/ul Normal 150-450 [facility] Comment on above: Performed By: #### C SHIRA #### [facility] [address] [place], [place] [id number] Dr. Spring Nash RBC 3.14 106/ul Critically low 4.70-6.10 [facility] Comment on above: Performed By: #### C SHIRA #### [facility] [address] [place], [place] [id number] Dr. Spring Nash RDW 13.4 % Normal 11.0-15.0 [facility] Comment on above: Performed By: #### C SHIRA #### [facility] [address] [place], [place] [id number] Dr. Spring Nash SEG # 11.40 103/ul Critically high 1.40-6.50 [facility] Comment on above: Performed By: #### C SHIRA #### [facility] [address] [address] [address] Spring Nash SEG % 100.0 % Critically high 43.0-75.0 [facility] Comment on above: Performed By: #### C SHIRA #### [facility] [address] [address] [address] Spring Nash WBC 11.4 103/ul Critically high 4.0-11.0 [facility] Comment on above: Performed By: #### C SHIRA #### [facility] [address] [address] [address] Spring Nash POINT OF CARE GLUCOSEon 09-14 Glucose [Mass/Vol] 243 mg/dL Critically high 74-106 [facility] Comment on above: Performed By: #### P OCGLUC #### [facility] [address] [place] [address] Dr. Spring Nash Glucose [Mass/Vol] 219 mg/dL Critically high 74-106 [facility] Comment on above: Performed By: #### P OCGLUC #### [facility] [address] [place] [address] Dr. Spring Nash PROF 14(COMP METB)on 022 Albumin [Mass/Vol] 2.5 g/dL Critically low 3.4-5.0 [facility] Comment on above: Performed By: #### C MP #### [facility] [address] [place] [address] Dr. Spring Nash Albumin/Globulin [Mass ratio] 0.7 {ratio} Normal [facility] Comment on above: Performed By: #### C MP #### [facility] [address] [place] [address] Dr. Spring Nash ALP [Catalytic activity/Vol] 96 U/L Normal 46-116 [facility] Comment on above: Performed By: #### C MP #### [facility] [address] [place] [address] Dr. Spring Nash ALT [Catalytic activity/Vol] 16 U/L Normal 16-63 [facility] Comment on above: Performed By: #### C MP #### [facility] [address] [address] [address] Spring Nash Anion gap [Moles/Vol] 12.3 mmol/L Normal [facility] Comment on above: Performed By: #### C MP #### [facility] [address] [place] [address] Dr. Spring Nash AST [Catalytic activity/Vol] 20 U/L Normal 15-37 [facility] Comment on above: Performed By: #### C MP #### [facility] [address] [address] [address] Spring Nash Bilirubin [Mass/Vol] 0.2 mg/dL Normal 0.2-1.0 [facility] Comment on above: Performed By: #### C MP #### [facility] [address] [place] [address] Dr. Spring Nash Calcium [Mass/Vol] 8.2 mg/dL Critically low 8.5-10.1 [facility] Comment on above: Performed By: #### C MP #### [facility] [address] [place] [address] Dr. Spring Nash Chloride [Moles/Vol] 102 mmol/L Normal 98-107 [facility] Comment on above: Performed By: #### C MP #### [facility] [address] [place] [address] Dr. Spring Nash CO2 [Moles/Vol] 24.4 mmol/L Normal 21.0-32.0 [facility] Comment on above: Performed By: #### C MP #### [facility] [address] [place] [address] Dr. Spring Nash Creatinine [Mass/Vol] 1.96 mg/dL Critically high 0.70-1.30 [facility] Comment on above: Performed By: #### C MP #### [facility] [address] [place] [address] Dr. Spring Nash EGFR-AF EGYPTIAN 44 mL/min/1.73m2 Critically low >=60 [facility] Comment on above: Performed By: #### C MP #### [facility] [address] [place] [address] Dr. Spring Nash EGFR-NON AF EGYPTIAN 36 mL/min/1.73m2 Critically low >=60 [facility] Comment on above: Performed By: #### C MP #### [facility] [address] [address] [address] Spring Nash Globulin (S) [Mass/Vol] 3.5 g/dL Normal [facility] Comment on above: Performed By: #### C MP #### [facility] [address] [address] [address] Spring Nash Glucose [Mass/Vol] 196 mg/dL Critically high 74-106 [facility] Comment on above: Performed By: #### C MP #### [facility] [address] [place] [address] Dr. Spring Nash Potassium [Moles/Vol] 4.7 mmol/L Normal 3.5-5.1 [facility] Comment on above: Performed By: #### C MP #### [facility] [address] [place] [address] Dr. Spring Nash Protein [Mass/Vol] 6.0 g/dL Critically low 6.4-8.2 [facility] Comment on above: Performed By: #### C MP #### [facility] [address] [place] [address] Dr. Spring Nash Sodium [Moles/Vol] 134 mmol/L Critically low 136-145 Th [facility] Comment on above: Performed By: #### C MP #### [facility] [address] [place] [address] Dr. Spring Nash Urea nitrogen [Mass/Vol] 47.0 mg/dL Critically high 7.0-18.0 [facility] Comment on above: Performed By: #### C MP #### [facility] [address] [place] [address] Dr. Spring Nash Urea nitrogen/Creatinine [Mass ratio] 24.0 mg/mg Normal [facility] Comment on above: Performed By: #### C MP #### [facility] [address] [place] [address] Dr. Spring Nash CARDIAC EDWARD 3-6on 2 CK [Catalytic activity/Vol] 262 U/L Normal 39-308 [facility] Comment on above: Performed By: #### C MP, HSTROPN, BNP #### [facility] [address] [place], [place] [address] Dr. Spring Nash CK.MB [Mass/Vol] 3.55 ng/mL Normal <=3.60 [facility] Comment on above: Performed By: #### C MP, HSTROPN, BNP #### [facility] [address] [place], [place] [address] Dr. Spring Nash HSTROP 25.8 pg/mL Normal 4.0-76.1 [facility] Comment on above: Result Comment: CUT- OFF POINTS HAVE BEEN ESTABLISHED BASED ON THE FOURTH UNIVERSAL DEFINITIONS OF MYOCARDIAL INFARCTION. THE UPPER REFERENCE LIMIT (URL) OF TROPONIN, DEFINED THE 99TH PERCENTILE OF cTnI DISTRIBUTION IN A REFERENCE POPULATION, HAS BEEN CONFIRMED THE DECISION THRESHOLD FOR NE DIAGNOSIS. Performed By: #### C MP, HSTROPN, BNP #### [facility] [address] [address] [address] Spring Nash CTA CHEST WO W [...] artery calcifications. Central airway is patent. Developing rhhck-ye-jzhqlzpx bilateral pleural effusions occupying 20-30% of each [...] artifact and are not well evaluated. Developing hnaoa-oh-uuikvbal bilateral pleural effusions occupying 20-30% of each [...] by: SHRUTI HANCOCK Date: 2022-10-02 22:48 Normal [facility] ECHO LIMITED STUDYon 022 ECHO LIMITED STUDY Patient: MELVI MINOR Exam Date: 10/03/2022 : 1970 Gender:M Ordering : DR KEVON CASTELLANO . Admission #: [id number] Family : DR FADI TENORIO D.O. Order #: [id number] CLICK HERE TO VIEW EXAM ECHOCARDIOGRAM REPORT [...] Lord M.D. on 10/03/2022 at 13:17 Normal [facility] GLUCOSE BLOODon 10-03-2022 Glucose [Mass/Vol] 551 mg/dL Critically high 74-106 T [facility] Comment on above: Performed By: #### B MP #### [facility] [address] [address] [address] Spring Nash GLYCOHEMOGLOBIN A1Con 2021 ADA RECOMMENDATION SEE BELOW Normal [facility] Comment on above: Result Comment: ADA RECOMMENDED LIMIT 4.0 - 6.0 ADA THERAPEUTIC TARGET < 7.0 ACTION SUGGESTED > 7.0 Performed By: #### B MP #### [facility] [address] [address] [address] Spring Nash Glucose [Mass/Vol] 301 mg/dL Normal [facility] Comment on above: Performed By: #### B MP #### [facility] [address] [place], [place] [address] Dr. Spring Nash HbA1c (Bld) [Mass fraction] 12.1 % Critically high 4.5-6.2 [facility] Comment on above: Performed By: #### B MP #### [facility] [address] [address] [address] Spring Nash POINT OF CARE GLUCOSEon 09-14 Glucose [Mass/Vol] 367 mg/dL Critically high [facility]106 [facility] Comment on above: Performed By: #### C SHAUN VERDE, BNP #### [facility] [address] [address] [address] Spring Nash Glucose [Mass/Vol] 215 mg/dL Critically high [facility]106 [facility] Comment on above: Performed By: #### C SHAUN VERDE, BNP #### [facility] [address] [address] [address] Spring Nash Glucose [Mass/Vol] 404 mg/dL Critically high [facility]106 [facility] Comment on above: Performed By: #### P OCGLUC #### [facility] [address] [address] [address] Spring Nash Glucose [Mass/Vol] 486 mg/dL Critically high [address] [place] [address] Comment on above: Performed By: #### P OCGLUC #### [facility] [address] [place] [address] Dr. Spring Nash Glucose [Mass/Vol] 542 mg/dL Critically high [address] [place] [address] Comment on above: Result Comment: Resu lt Not Confirmed Performed By: #### P OCGLUC #### [facility] [address] [place] [address] Dr. Spring Nash ACETONE SERUMon 10-02-2022 ACETONE Negative Normal NEGATIVE [facility] Comment on above: Performed By: #### P OCGLUC #### [facility] [address] [place] [address] Dr. Spring Nash BNPon 10-02-2022 Natriuretic peptide B (Bld) [Mass/Vol] 3142.0 pg/mL Critically high <=900.0 [facility] Comment on above: Performed By: #### P OCGLUC #### [facility] [address] [place] [address] Dr. Spring Nash CARDIAC EDWARD 3-6on 2 CK [Catalytic activity/Vol] 250 U/L Normal 39-308 [facility] Comment on above: Performed By: #### P OCGLUC #### [facility] [address] [place] [address] Dr. Spring Nash CK.MB [Mass/Vol] 3.41 ng/mL Normal <=3.60 [facility] Comment on above: Performed By: #### P OCGLUC #### [facility] [address] [place] [address] Dr. Spring Nash HSTROP 27.1 pg/mL Normal 4.0-76.1 [facility] Comment on above: Result Comment: CUT- OFF POINTS HAVE BEEN ESTABLISHED BASED ON THE FOURTH UNIVERSAL DEFINITIONS OF MYOCARDIAL INFARCTION. THE UPPER REFERENCE LIMIT (URL) OF TROPONIN, DEFINED THE 99TH PERCENTILE OF cTnI DISTRIBUTION IN A REFERENCE POPULATION, HAS BEEN CONFIRMED THE DECISION THRESHOLD FOR NE DIAGNOSIS. Performed By: #### P OCGLUC #### [facility] [address] [place] [address] Dr. Spring Nash CBC AUTO DIFFon 10-02-2022 BASO # 0.0 103/ul Normal 0.0-0.1 [facility] Comment on above: Performed By: #### C MP #### [facility] [address] [place] [address] Dr. Spring Nash Basophils/100 WBC (Bld) 0.2 % Normal 0.2-2.0 [facility] Comment on above: Performed By: #### C MP #### [facility] [address] [place] [address] Dr. Spring Nash EO # 0.4 103/ul Normal 0.0-0.7 [facility] Comment on above: Performed By: #### C MP #### [facility] [address] [place] [address] Dr. Spring Nash Eosinophils/100 WBC (Bld) 3.5 % Normal 0.9-7.0 [facility] Comment on above: Performed By: #### C MP #### [facility] [address] [address] [address] Spring Nash Erythrocyte distribution width (RBC) [Ratio] 13.0 % Normal 11.0-15.0 [facility] Comment on above: Performed By: #### C MP #### [facility] [address] [address] [address] Spring Nash Hematocrit (Bld) [Volume fraction] 34.2 % Critically low 42.0-54.0 [facility] Comment on above: Performed By: #### C MP #### [facility] [address] [place] [address] Dr. Spring Nash Hemoglobin (Bld) [Mass/Vol] 11.8 g/dL Critically low 14.0-18.0 [facility] Comment on above: Performed By: #### C MP #### [facility] [address] [place] [address] Dr. Spring Nash IG # 0.07 10e3/ul Critically high 0.00-0.03 [facility] Comment on above: Performed By: #### C MP #### [facility] [address] [place] [address] Dr. Spring Nash IG % 0.6 % Critically high 0.0-0.5 [facility] Comment on above: Performed By: #### C MP #### [facility] [address] [place] [address] Dr. Spring Nash LYMPH # 1.2 103/ul Normal 1.2-3.8 [facility] Comment on above: Performed By: #### C MP #### [facility] [address] [place] [address] Dr. Spring Nash Lymphocytes/100 WBC (Bld) 9.5 % Critically low 20.5-60.0 [facility] Comment on above: Performed By: #### C MP #### [facility] [address] [place] [address] Dr. Spring Nash MANUAL DIFF REQ NO Normal [facility] Comment on above: Performed By: #### C MP #### [facility] [address] [address] [address] Spring Nash MCH (RBC) [Entitic mass] 31.3 pg Normal 25.9-34.0 [facility] Comment on above: Performed By: #### C MP #### [facility] [address] [place] [address] Dr. Spring Nash MCHC (RBC) [Mass/Vol] 34.5 g/dL Normal 29.9-35.2 [facility] Comment on above: Performed By: #### C MP #### [facility] [address] [place] [address] Dr. Spring Nash MCV (RBC) [Entitic vol] 90.7 fL Normal 80.0-94.0 [facility] Comment on above: Performed By: #### C MP #### [facility] [address] [place] [address] Dr. Spring Nash MONO # 0.6 103/ul Normal 0.3-0.8 [facility] Comment on above: Performed By: #### C MP #### [facility] [address] [place] [address] Dr. Spring Nash Monocytes/100 WBC (Bld) 4.8 % Normal 1.7-12.0 [facility] Comment on above: Performed By: #### C MP #### [facility] [address] [place] [address] Dr. Spring Nash NEUT # 10.1 103/ul Critically high 1.4-6.5 [facility] Comment on above: Performed By: #### C MP #### [facility] [address] [place] [address] Dr. Spring Nash Neutrophils/100 WBC (Bld) 81.4 % Critically high 43.0-75.0 [facility] Comment on above: Performed By: #### C MP #### [facility] [address] [place] [address] Dr. Spring Nash Platelet mean volume (Bld) [Entitic vol] 12.5 fL Normal 9.5-13.5 [facility] Comment on above: Performed By: #### C MP #### [facility] [address] [address] [address] Spring Nash PLT 212 103/ul Normal 150-450 [facility] Comment on above: Performed By: #### C MP #### [facility] [address] [place] [address] Dr. Spring Nash RBC 3.77 106/ul Critically low 4.70-6.10 [facility] Comment on above: Performed By: #### C MP #### [facility] [address] [address] [address] Spring Nash WBC 12.4 103/ul Critically high 4.0-11.0 [facility] Comment on above: Performed By: #### C MP #### [facility] [address] [place] [address] Dr. Spring Nash CULTURE BLOODon 10-02-2022 Microscopic examination of blood, culture Culture Observations: NO GROWTH AT 5 DAYS. Normal [facility] Comment on above: Performed By: #### P OCGLUC #### [facility] [address] [place] [address] Dr. Spring Nash Microscopic examination of blood, culture Culture Observations: NO GROWTH AT 5 DAYS. Normal [facility] Comment on above: Performed By: #### P OCGLUC #### [facility] [address] [place] [address] Dr. Spring Nash [facility]14 SARS-CoV-2 (COVID-19) RNA HONEY+probe Ql (Unsp spec) Not detected Normal NOT DETECTED [facility] Comment on above: Result Comment: When [...] for this test is supported by the Licensed [employer] of Health and Human Service's declaration that [...] By: #### C MP, HSTROPN, BNP #### [facility] [address] [place] [address] Dr. Spring Nash INFLUENZA A AND B AGon 10-02 INFLUENZA A AG Negative Normal NEGATIVE SEE COMMENT [facility] Comment on above: Performed By: #### C MP, HSTROPN, BNP #### [facility] [address] [place] [address] Dr. Spring Nash INFLUENZA B AG Negative Normal NEGATIVE SEE COMMENT [facility] Comment on above: Performed By: #### C MP, HSTROPN, BNP #### [facility] [address] [place] [address] Dr. Spring Nash INTERNAL CONTROLS Within Normal Limits Normal Wi thin Normal Limits [facility] Comment on above: Performed By: #### C MP, HSTROPN, BNP #### [facility] [address] [place] [address] Dr. Spring Nash LACTATE/LACTIC ACIDon 2021 Lactate [Moles/Vol] 1.5 mmol/L Normal 0.4-1.9 [facility] Comment on above: Performed By: #### C MP, HSTROPN, BNP #### [facility] [address] [place] [address] Dr. Spring Nash PROF 14(COMP METB)on 022 Albumin [Mass/Vol] 2.7 g/dL Critically low 3.4-5.0 Th [facility] Comment on above: Performed By: #### P OCGLUC #### [facility] [address] [place] [address] Dr. Spring Nash Albumin/Globulin [Mass ratio] 0.7 {ratio} Normal [facility] Comment on above: Performed By: #### P OCGLUC #### [facility] [address] [address] [address] Spring Nash ALP [Catalytic activity/Vol] 169 U/L Critically high 46-116 [facility] Comment on above: Performed By: #### P OCGLUC #### [facility] [address] [address] [address] Spring Nash ALT [Catalytic activity/Vol] 13 U/L Critically low 16-63 [facility] Comment on above: Performed By: #### P OCGLUC #### [facility] [address] [address] [address] Spring Nash Anion gap [Moles/Vol] 13.7 mmol/L Normal [facility] Comment on above: Performed By: #### P OCGLUC #### [facility] [address] [address] [address] Spring Nash AST [Catalytic activity/Vol] 24 U/L Normal 15-37 [facility] Comment on above: Performed By: #### P OCGLUC #### [facility] [address] [address] [address] Spring Nash Bilirubin [Mass/Vol] 0.6 mg/dL Normal 0.2-1.0 [facility] Comment on above: Performed By: #### P OCGLUC #### [facility] [address] [address] [address] Spring Nash Calcium [Mass/Vol] 8.1 mg/dL Critically low 8.5-10.1 [facility] Comment on above: Performed By: #### P OCGLUC #### [facility] [address] [address] [address] Spring Nash Chloride [Moles/Vol] 102 mmol/L Normal 98-107 [facility] Comment on above: Performed By: #### P OCGLUC #### [facility] [address] [address] [address] Spring Nash CO2 [Moles/Vol] 25.1 mmol/L Normal 21.0-32.0 [facility] Comment on above: Performed By: #### P OCGLUC #### [facility] [address] [address] [address] Spring Nash Creatinine [Mass/Vol] 1.55 mg/dL Critically high 0.70-1.30 [facility] Comment on above: Performed By: #### P OCGLUC #### [facility] [address] [address] [address] Spring Nash EGFR-AF EGYPTIAN 58 mL/min/1.73m2 Critically low >=60 [facility] Comment on above: Performed By: #### P OCGLUC #### [facility] [address] [address] [address] Spring Nash EGFR-NON AF EGYPTIAN 48 mL/min/1.73m2 Critically low >=60 [facility] Comment on above: Performed By: #### P OCGLUC #### [facility] [address] [address] [address] Spring Nash Globulin (S) [Mass/Vol] 4.1 g/dL Normal [facility] Comment on above: Performed By: #### P OCGLUC #### [facility] [address] [address] [address] Spring Nash Glucose [Mass/Vol] 421 mg/dL Critically high 74-106 [facility] Comment on above: Performed By: #### P OCGLUC #### [facility] [address] [address] [address] Spring Nash Potassium [Moles/Vol] 4.8 mmol/L Normal 3.5-5.1 [facility] Comment on above: Performed By: #### P OCGLUC #### [facility] [address] [address] [address] Spring Nash Protein [Mass/Vol] 6.8 g/dL Normal 6.4-8.2 [facility] Comment on above: Performed By: #### P OCGLUC #### [facility] [address] [address] [address] Spring Nash Sodium [Moles/Vol] 136 mmol/L Normal 136-145 [facility] Comment on above: Performed By: #### P OCGLUC #### [facility] [address] [place] [address] Dr. Spring Nash Urea nitrogen [Mass/Vol] 29.0 mg/dL Critically high 7.0-18.0 [facility] Comment on above: Performed By: #### P OCGLUC #### [facility] [address] [place] [address] Dr. Spring Nash Urea nitrogen/Creatinine [Mass ratio] 18.7 mg/mg Normal [facility] Comment on above: Performed By: #### P OCGLUC #### [facility] [address] [place] [address] Dr. Spring Nash PROTIMEon 10-02-2022 INR Coag (PPP) [Relative time] {INR} Normal [facility] Comment on above: Performed By: #### P OCGLUC #### [facility] [address] [place] [address] Dr. Spring Nash INR GUIDELINES SEE BELOW Normal [facility] Comment on above: Result Comment: SHAWN RED INR: 2.0 - 3.0 CONDITIONS NOT LISTED BELOW 2.5 - 3.5 FOR PROSTHETIC HEART VALVE REPLACEMENT 2.5 - 3.5 RECURRENT THROMBOSIS Performed By: #### P OCGLUC #### [facility] [address] [place] [address] Dr. Spring Nash PT Coag (PPP) [Time] 9.8 s Normal 9.0-11.6 [facility] Comment on above: Performed By: #### P OCGLUC #### [facility] [address] [place] [address] Dr. Spring Nash PTTon 10-02-2022 aPTT Coag (Bld) [Time] 25.9 s Normal 22.3-36.2 Th [facility] Comment on above: Performed By: #### P OCGLUC #### [facility] [address] [place] [address] Dr. Spring Nash TROPONIN, HIGH SENSITIVITYon 10-02-2022 HSTROP 29.9 pg/mL Normal 4.0-76.1 [facility] Comment on above: Result Comment: CUT- OFF POINTS HAVE BEEN ESTABLISHED BASED ON THE FOURTH UNIVERSAL DEFINITIONS OF MYOCARDIAL INFARCTION. THE UPPER REFERENCE LIMIT (URL) OF TROPONIN, DEFINED THE 99TH PERCENTILE OF cTnI DISTRIBUTION IN A REFERENCE POPULATION, HAS BEEN CONFIRMED THE DECISION THRESHOLD FOR NE DIAGNOSIS. Performed By: #### P OCGLUC #### [facility] [address] [place] [address] Dr. Spring Nash TSHon 10-02-2022 TSH 2.707 uIU/mL Normal 0.358-3.74 0 [facility] Comment on above: Performed By: #### P OCGLUC #### [facility] [address] [place] [address] Dr. Spring Nash CBC AUTO DIFFon 07-31-2022 BASO # 0.0 103/ul Normal 0.0-0.1 [facility] Comment on above: Performed By: #### C MP, HSTROPN, BNP #### [facility] [address] [place] [address] Dr. Spring Nash Basophils/100 WBC (Bld) 0.5 % Normal 0.2-2.0 [facility] Comment on above: Performed By: #### C MP, HSTROPN, BNP #### [facility] [address] [place] [address] Dr. Spring Nash EO # 0.3 103/ul Normal 0.0-0.7 [facility] Comment on above: Performed By: #### C MP, HSTROPN, BNP #### [facility] [address] [place] [address] Dr. Spring Nash Eosinophils/100 WBC (Bld) 4.0 % Normal 0.9-7.0 [facility] Comment on above: Performed By: #### C MP, HSTROPN, BNP #### [facility] [address] [place] [address] Dr. Spring Nash Erythrocyte distribution width (RBC) [Ratio] 12.1 % Normal 11.0-15.0 [facility] Comment on above: Performed By: #### C MP, HSTROPN, BNP #### [facility] [address] [place] [address] Dr. Spring Nash Hematocrit (Bld) [Volume fraction] 37.4 % Critically low 42.0-54.0 [facility] Comment on above: Performed By: #### C MP, HSTROPN, BNP #### [facility] [address] [place] [address] Dr. Spring Nash Hemoglobin (Bld) [Mass/Vol] 12.9 g/dL Critically low 14.0-18.0 [facility] Comment on above: Performed By: #### C MP, HSTROPN, BNP #### [facility] [address] [place] [address] Dr. Spring Nash IG # 0.04 10e3/ul Critically high 0.00-0.03 [facility] Comment on above: Performed By: #### C MP, HSTROPN, BNP #### [facility] [address] [place] [address] Dr. Spring Nash IG % 0.5 % Normal 0.0-0.5 [facility] Comment on above: Performed By: #### C MP, HSTROPN, BNP #### [facility] [address] [place] [address] Dr. Spring Nash LYMPH # 1.7 103/ul Normal 1.2-3.8 [facility] Comment on above: Performed By: #### C MP, HSTROPN, BNP #### [facility] [address] [place] [address] Dr. Spring Nash Lymphocytes/100 WBC (Bld) 21.1 % Normal 20.5-60.0 [facility] Comment on above: Performed By: #### C MP, HSTROPN, BNP #### [facility] [address] [place] [address] Dr. Spring Nash MANUAL DIFF REQ NO Normal [facility] Comment on above: Performed By: #### C MP, HSTROPN, BNP #### [facility] [address] [place] [address] Dr. Spring Nash MCH (RBC) [Entitic mass] 31.0 pg Normal 25.9-34.0 [facility] Comment on above: Performed By: #### C MP, HSTROPN, BNP #### [facility] [address] [place] [address] Dr. Spring Nash MCHC (RBC) [Mass/Vol] 34.5 g/dL Normal 29.9-35.2 [facility] Comment on above: Performed By: #### C MP, HSTROPN, BNP #### [facility] [address] [place] [address] Dr. Spring Nash MCV (RBC) [Entitic vol] 89.9 fL Normal 80.0-94.0 [facility] Comment on above: Performed By: #### C MP, HSTROPN, BNP #### [facility] [address] [place] [address] Dr. Spring Nash MONO # 0.6 103/ul Normal 0.3-0.8 [facility] Comment on above: Performed By: #### C MP, HSTROPN, BNP #### [facility] [address] [place] [address] Dr. Spring Nash Monocytes/100 WBC (Bld) 7.9 % Normal 1.7-12.0 [facility] Comment on above: Performed By: #### C MP, HSTROPN, BNP #### [facility] [address] [place] [address] Dr. Spring Nash NEUT # 5.2 103/ul Normal 1.4-6.5 [facility] Comment on above: Performed By: #### C MP, HSTROPN, BNP #### [facility] [address] [place] [address] Dr. Spring Nash Neutrophils/100 WBC (Bld) 66.0 % Normal 43.0-75.0 [facility] Comment on above: Performed By: #### C MP, HSTROPN, BNP #### [facility] [address] [place] [address] Dr. Spring Nash Platelet mean volume (Bld) [Entitic vol] 11.5 fL Normal 9.5-13.5 [facility] Comment on above: Performed By: #### C MP, HSTROPN, BNP #### [facility] [address] [place], [place] [address] Dr. Spring Nash PLT 220 103/ul Normal 150-450 [facility] Comment on above: Performed By: #### C MP, HSTROPN, BNP #### [facility] [address] [place], [place] [address] Dr. Spring Nash RBC 4.16 106/ul Critically low 4.70-6.10 [facility] Comment on above: Performed By: #### C MP, HSTROPN, BNP #### [facility] [address] [place], [place] [address] Dr. Spring Nash WBC 7.8 103/ul Normal 4.0-11.0 [facility] Comment on above: Performed By: #### C MP, HSTROPN, BNP #### [facility] [address] [place], [place] [address] STROKE HEAD WOon [...] LISA DURAN Date: 2022-07-31 21:18 Normal [facility] Covid-19 PCR (CVDTB)on 07-14 SARS-CoV-2 (COVID-19) RNA HONEY+probe Ql (Unsp spec) Not detected Normal NOT DETECTED [facility] Comment on above: Result Comment: When [...] for this test is supported by the [place] of Health and Human Service's declaration that [...] By: #### C MP, HSTROPN, BNP #### [facility] [address] [place] [address] Dr. Spring Nash PROF 14(COMP METB)on 022 Albumin [Mass/Vol] 3.1 g/dL Critically low 3.4-5.0 Th [facility] Comment on above: Performed By: #### P OCGLUC #### [facility] [address] [place] [address] Dr. Spring Nash Albumin/Globulin [Mass ratio] 0.9 {ratio} Normal [facility] Comment on above: Performed By: #### P OCGLUC #### [facility] [address] [place] [address] Dr. Spring Nash ALP [Catalytic activity/Vol] 124 U/L Critically high 46-116 [facility] Comment on above: Performed By: #### P OCGLUC #### [facility] [address] [place] [address] Dr. Spring Nash ALT [Catalytic activity/Vol] 18 U/L Normal 16-63 [facility] Comment on above: Performed By: #### P OCGLUC #### [facility] [address] [address] [address] Spring Nash Anion gap [Moles/Vol] 9.1 mmol/L Normal [facility] Comment on above: Performed By: #### P OCGLUC #### [facility] [address] [address] [address] Spring Nash AST [Catalytic activity/Vol] 11 U/L Critically low 15-37 [facility] Comment on above: Performed By: #### P OCGLUC #### [facility] [address] [address] [address] Spring Nash Bilirubin [Mass/Vol] 0.3 mg/dL Normal 0.2-1.0 [facility] Comment on above: Performed By: #### P OCGLUC #### [facility] [address] [address] [address] Spring Nash Calcium [Mass/Vol] 8.9 mg/dL Normal 8.5-10.1 [facility] Comment on above: Performed By: #### P OCGLUC #### [facility] [address] [address] [address] Spring Nash Chloride [Moles/Vol] 102 mmol/L Normal 98-107 [facility] Comment on above: Performed By: #### P OCGLUC #### [facility] [address] [address] [address] Spring Nash CO2 [Moles/Vol] 31.1 mmol/L Normal 21.0-32.0 [facility] Comment on above: Performed By: #### P OCGLUC #### [facility] [address] [address] [address] Spring Nash Creatinine [Mass/Vol] 1.58 mg/dL Critically high 0.70-1.30 [facility] Comment on above: Performed By: #### P OCGLUC #### [facility] [address] [address] [address] Spring Nash EGFR-AF EGYPTIAN 56 mL/min/1.73m2 Critically low >=60 [facility] Comment on above: Performed By: #### P OCGLUC #### [facility] [address] [address] [address] Spring Nash EGFR-NON AF EGYPTIAN 46 mL/min/1.73m2 Critically low >=60 [facility] Comment on above: Performed By: #### P OCGLUC #### [facility] [address] [address] [address] Spring Nash Globulin (S) [Mass/Vol] 3.4 g/dL Normal [facility] Comment on above: Performed By: #### P OCGLUC #### [facility] [address] [address] [address] Spring Nash Glucose [Mass/Vol] 218 mg/dL Critically high 74-106 [facility] Comment on above: Performed By: #### P OCGLUC #### [facility] [address] [address] [address] Spring Nash Potassium [Moles/Vol] 4.2 mmol/L Normal 3.5-5.1 [facility] Comment on above: Performed By: #### P OCGLUC #### [facility] [address] [address] [address] Spring Nash Protein [Mass/Vol] 6.5 g/dL Normal 6.4-8.2 [facility] Comment on above: Performed By: #### P OCGLUC #### [facility] [address] [address] [address] Spring Nash Sodium [Moles/Vol] 138 mmol/L Normal 136-145 [facility] Comment on above: Performed By: #### P OCGLUC #### [facility] [address] [address] [address] Spring Nash Urea nitrogen [Mass/Vol] 22.0 mg/dL Critically high 7.0-18.0 [facility] Comment on above: Performed By: #### P OCGLUC #### [facility] [address] [address] [address] Spring Nash Urea nitrogen/Creatinine [Mass ratio] 13.9 mg/mg Normal [facility] Comment on above: Performed By: #### P OCGLUC #### [facility] [address] [address] [address] Spring Nash PROTIMEon 07-31-2022 INR Coag (PPP) [Relative time] {INR} Normal [facility] Comment on above: Performed By: #### C MP #### [facility] [address] [place] [address] Dr. Spring Nash INR GUIDELINES SEE BELOW Normal [facility] Comment on above: Result Comment: SHAWN RED INR: 2.0 - 3.0 CONDITIONS NOT LISTED BELOW 2.5 - 3.5 FOR PROSTHETIC HEART VALVE REPLACEMENT 2.5 - 3.5 RECURRENT THROMBOSIS Performed By: #### C MP #### [facility] [address] [address] [address] Spring Nash PT Coag (PPP) [Time] 9.7 s Normal 9.0-11.6 [facility] Comment on above: Performed By: #### C MP #### [facility] [address] [place] [address] Dr. Spring Nash PTTon 07-31-2022 aPTT Coag (Bld) [Time] 23.0 s Normal 22.3-36.2 Th [facility] Comment on above: Performed By: #### C MP #### [facility] [address] [place] [address] Dr. Spring Nash TROPONIN, HIGH SENSITIVITYon 07-31-2022 HSTROP 36.6 pg/mL Normal 4.0-76.1 [facility] Comment on above: Result Comment: CUT- OFF POINTS HAVE BEEN ESTABLISHED BASED ON THE FOURTH UNIVERSAL DEFINITIONS OF MYOCARDIAL INFARCTION. THE UPPER REFERENCE LIMIT (URL) OF TROPONIN, DEFINED THE 99TH PERCENTILE OF cTnI DISTRIBUTION IN A REFERENCE POPULATION, HAS BEEN CONFIRMED THE DECISION THRESHOLD FOR NE DIAGNOSIS. Performed By: #### P OCGLUC #### [facility] [address] [address] [address] Spring Nash TSHon 07-31-2022 TSH 2.334 uIU/mL Normal 0.358-3.74 0 [facility] Comment on above: Performed By: #### P OCGLUC #### [facility] [address] [place] [address] Dr. Spring Nash XR CHEST 1 Von [...] by: CLIVE HOLLAND Date: 2022-07-31 20:54 Normal [facility] A1C HEMOGLOBINon 05-16-2022 HbA1c (Bld) [Mass fraction] 8.6 % [facility] Other Glucose - FINGER STICKon Glucose [Mass/Vol] 109 mg/dL [facility] Other HbA1c (Bld) [Mass fraction]o n 05-16-2022 A1C HEMOGLOBIN [facility] [email or web address] Other Basophils Auto (Bld) [#/Vol] Ordered By: Suzan Bennett on 04-21-2022 Basophils (Bld) [#/Vol] 0.1 10*3/uL 0.0-0.2 [facility] Basophils/100 WBC Auto (Bld) Ordered By: Suzan Bennett on 04-21-2022 Basophils/100 WBC (Bld) 0.6 % [facility] Blood hemoglobin measurement (mass/volume)Ordered By: Suzan Bennett on 04-21-2022 Hemoglobin (Bld) [Mass/Vol] 11.7 g/dL 13.0-17.0 [facility] Blood leukocytes automated c ount (number/volume)Ordered By: Suzan Bennett on 04-21-2022 WBC (Bld) [#/Vol] 9.0 10*3/uL 4.5-11.0 [facility] Creatinine and Glomerular fi ltration rate.predicted panel (S/P/Bld)Ordered By: Suzan Bennett on 04-21-2022 Creatinine [Mass/Vol] 1.75 mg/dL 0.64-1.27 [facility] Eosinophils Auto (Bld) [#/Vo l]Ordered By: Suzan Bennett on 04-21-2022 Eosinophils (Bld) [#/Vol] 0.3 10*3/uL 0.0-0.45 [facility] Eosinophils/100 WBC Auto (Bl d)Ordered By: Suzan Bennett on 04-21-2022 Eosinophils/100 WBC (Bld) 3.0 % [facility] Erythrocyte distribution wid th Auto (RBC) [Ratio]Ordered By: Suzan Bennett on 04-21-2022 Erythrocyte distribution width (RBC) [Ratio] 13.2 % 12.0-14.8 [facility] Estimated glomerular filtrat ion rate (GFR) non- AmericanOrdered By: Suzan Bennett on 04-21-2022 GFR/1.73 sq M.predicted among non-blacks MDRD (S/P/Bld) [Vol rate/Area] 41 mL/Min [facility] Hematocrit Auto (Bld) [Volum e fraction]Ordered By: Suzan Bennett on 04-21-2022 Hematocrit (Bld) [Volume fraction] 34.0 % 38.8-50.0 [facility] - Chemistry and C hemistry - challengeOrdered By: Sinan Holly on 04-21-2022 Natriuretic peptide B (Bld) [Mass/Vol] 51.0 pg/mL 5-100 [facility] - Hematology and Cell countsOrdered By: Suzan Bennett on 04-21-2022 Nucleated RBC/100 WBC (Bld) [Ratio] 0.0 % 0-0.5 [facility] Lymphocytes Auto (Bld) [#/Vo l]Ordered By: Suzan Bennett on 04-21-2022 Lymphocytes (Bld) [#/Vol] 1.6 10*3/uL 1.00-4.8 [facility] Lymphocytes/100 WBC Auto (Bl d)Ordered By: Suzan Bennett on 04-21-2022 Lymphocytes/100 WBC (Bld) 17.4 % [facility] MCH Auto (RBC) [Entitic mass ]Ordered By: Suzan Bennett on 04-21-2022 MCH (RBC) [Entitic mass] 31.2 pg 27.5-35.2 [facility] MCHC Auto (RBC) [Mass/Vol]Or dered By: Suzan Bennett on 04-21-2022 MCHC (RBC) [Mass/Vol] 34.3 g/dL 32.5-35.6 [facility] MCV Auto (RBC) [Entitic vol] Ordered By: Suzan Bennett on 04-21-2022 MCV (RBC) [Entitic vol] 90.8 fL 83.5-101 [facility] Monocytes Auto (Bld) [#/Vol] Ordered By: Suzan Bennett on 04-21-2022 Monocytes (Bld) [#/Vol] 0.6 10*3/uL 0.0-0.8 [facility] Monocytes/100 WBC Auto (Bld) Ordered By: Suzan Bennett on 04-21-2022 Monocytes/100 WBC (Bld) 6.9 % [facility] Neutrophils Auto (Bld) [#/Vo l]Ordered By: Suzan Bennett on 04-21-2022 Neutrophils (Bld) [#/Vol] 6.5 10*3/uL 1.8-7.7 [facility] Neutrophils/100 WBC Auto (Bl d)Ordered By: Suzan Bennett on 04-21-2022 Neutrophils/100 WBC (Bld) 72.1 % [facility] No Panel InformationOrdered By: Suzan Bennett on 04-21-2022 Estimated GFR () 50 mL/Min [facility] Comment on above: GFR estimated refere nce range: According to KDOQI guidelines, <60 ml/min/1.73m2 is sufficient to diagnose a patient with chronic kidney disease. Pharmacy Creatinine Clearance (Chem 57.15 [facility] Platelet mean volume Auto (B ld) [Entitic vol]Ordered By: Suzan Bennett on 04-21-2022 Platelet mean volume (Bld) [Entitic vol] 9.9 fL 6.6-10.1 [facility] Platelets Auto (Bld) [#/Vol] Ordered By: Suzan Bennett on 04-21-2022 Platelets (Bld) [#/Vol] 202 10*3/uL 150-450 [facility] RBC Auto (Bld) [#/Vol]Ordere d By: Suzan Bennett on 04-21-2022 RBC (Bld) [#/Vol] 3.75 10*6/uL 3.90-5.60 [facility] Serum or plasma calcium regi urement (mass/volume)Ordered By: Suzan Bennett on 04-21-2022 Calcium [Mass/Vol] 9.0 mg/dL 8.2-10.2 [facility] Serum or plasma chloride taryn surement (moles/volume)Ordered By: Suzan Bennett on 04-21-2022 Chloride [Moles/Vol] 99 mmol/L 95-114 [facility] Serum or plasma glucose regi urement (mass/volume)Ordered By: Suzan Bennett on 04-21-2022 Glucose [Mass/Vol] 215 mg/dL 70-100 [facility] Comment on above: ADA recommended refe rence range Random Glucose Reference Range is dependent on time and content of last meal. Glucose of more than 200 mg/dL in a nonstressed, ambulatory subject supports the diagnosis of Diabetes Mellitus. Serum or plasma potassium me asurement (moles/volume)Ordered By: Suzan Bennett on 04-21-2022 Potassium [Moles/Vol] 4.5 mmol/L 3.5-5.1 [facility] Serum or plasma sodium measu rement (moles/volume)Ordered By: Suzan Bennett on 04-21-2022 Sodium [Moles/Vol] 138 mmol/L 136-146 [facility] Serum or plasma total carbon dioxide measurement (moles/volume)Ordered By: Suzan Bennett on 04-21-2022 CO2 [Moles/Vol] 28.5 mmol/L 22.0-30.0 [facility] Serum or plasma urea nitroge n measurement (mass/volume)Ordered By: Suzan Bennett on 04-21-2022 Urea nitrogen [Mass/Vol] 42 mg/dL 9-23 [facility] Troponin I.cardiac [Mass/vol ume] in Serum or Plasma by High sensitivity methodOrdered By: Sinan Holly on 04-21-2022 Troponin I.cardiac High sensitivity method [Mass/Vol] 18 pg/mL 0-20 [facility] INTRAVITREAL INJECTION, PHAR MACOLOGIC AGENT - [...] and verbal post procedure care education. Notes [id number] [facility] Radiology Study observation (narrative) [facility] OCT, RETINA - OU - BOTH EYES on 03-21-2022 [facility] Radiology Study observation (narrative) [facility] Office Visit (Cardiology)on 03-07-2022 Follow-up visit Diagnoses/Problems [...] in adult Healthy Weight Tips; Status:Complete; Done: [id number] Hypertension, Ischemic cardiomyopathy Renew: Bumetanide 1 MG [...] we can help. You may also call 9-430-BYEIPopUp LeasingNOW for free resources and assistance.; Status:Complete; Done: [id number] Tobacco Use Screening; Status:Complete; Done: [id number] Unlinked Stop: Potassium Chloride [facility] 20 [...] contact the office if new symptoms arise. RUBBER WASHER in 2 months Encourage healthy lifestyle choices [...] life. Chief Complaint I am feeling ok ARVEL MILY is being seen for a week follow-up [...] Isosorbide Mon (more content not included)... Normal [employer] Tobacco Screening.on 022 Fall risk assessment a) No falls within the last year [facility] [employer] y 250 DO Work Phone: Tobacco use status CPHS a) Yes [facility] [employer] y 250 DO Work Phone: Tobacco Screening. Yes [facility]-Tobias y 250 DO Work Phone: Office Visit [...] contact the office if new symptoms arise. RUBBER WASHER in 2 weeks Encourage healthy lifestyle choices [...] DAILY NEEDED. (more content not included)... Normal [employer] Tobacco Screening.on 022 Adult depression screening assessment No [facility] y 250 DO Work Phone: Adult depression screening assessment Yes [facility] y 250 DO Work Phone: Fall risk assessment b) One or more fall s in the last year [facility] y 250 DO Work Phone: Tobacco use status CP a) Yes [facility] y 250 DO Work Phone: Tobacco Screening. Yes [facility] y 250 DO Work Phone: Tobacco Screening. 1-Several days [facility]-T[facility] y 250 DO Work Phone: Tobacco Screening. 0-Not at all [facility]-Tobias y 250 DO Work Phone: Tobacco Screening. 2-More than half the days [facility] y 250 DO Work Phone: Tobacco Screening. Somewhat Difficult [facility] y 250 DO Work Phone: Glucose - FINGER STICKon Glucose [Mass/Vol] 194 mg/dL [facility] [employer] Other Tobacco Screening.on 022 Adult depression screening assessment No [facility] y 250 DO Work Phone: Adult depression screening assessment Yes [facility] y 250 DO Work Phone: Tobacco use status CPHS a) Yes [facility] [place] [facility] y 250 DO Work Phone: Tobacco Screening. Yes -[facility]-Tobias y 250 DO Work Phone: Tobacco Screening. 3-Nearly every day [facility] Ward burleson 250 DO Work Phone: Tobacco Screening. 0-Not at all [facility] HeartBertha y 250 DO Work Phone: Tobacco Screening. 2-More than half the days [facility] Ward burleson 250 DO Work Phone: Tobacco Screening. 1-Several days [facility] HeartBertha burleson 250 DO Work Phone: Tobacco Screening. Very Difficult [facility] HeartBertha burleson 250 DO Work Phone: Basophils Auto (Bld) [#/Vol] Ordered By: Jonn Wallace on 01-12-2022 Basophils (Bld) [#/Vol] 0.0 10*3/uL 0.0-0.2 [facility] Basophils/100 WBC Auto (Bld) Ordered By: Jonn Wallace on 01-12-2022 Basophils/100 WBC (Bld) 0.6 % [facility] Blood hemoglobin measurement (mass/volume)Ordered By: Jonn Wallace on 01-12-2022 Hemoglobin (Bld) [Mass/Vol] 11.5 g/dL 13.0-17.0 [facility] Blood leukocytes automated c ount (number/volume)Ordered By: Jonn Wallace on 01-12-2022 WBC (Bld) [#/Vol] 8.4 10*3/uL 4.5-11.0 [facility] Creatinine and Glomerular fi ltration rate.predicted panel (S/P/Bld)Ordered By: Jonn Wallace on 01-12-2022 Creatinine [Mass/Vol] 1.21 mg/dL 0.64-1.27 [facility] Eosinophils Auto (Bld) [#/Vo l]Ordered By: Jonn Wallace on 01-12-2022 Eosinophils (Bld) [#/Vol] 0.5 10*3/uL 0.0-0.45 [facility] Eosinophils/100 WBC Auto (Bl d)Ordered By: Jonn Wallace on 01-12-2022 Eosinophils/100 WBC (Bld) 6.3 % [facility] Erythrocyte distribution wid th Auto (RBC) [Ratio]Ordered By: Jonn Wallace on 01-12-2022 Erythrocyte distribution width (RBC) [Ratio] 14.2 % 12.0-14.8 [facility] Estimated glomerular filtrat ion rate (GFR) non- AmericanOrdered By: Jonn Wallace on 01-12-2022 GFR/1.73 sq M.predicted among non-blacks MDRD (S/P/Bld) [Vol rate/Area] > 60 mL/Min [facility] Glucose Glucometer (BldC) [M ass/Vol]Ordered By: Jonn Wallace on 01-12-2022 Glucose [Mass/Vol] 161 mg/dL [facility] Comment on above: Random Glucose Refer ence Range is dependent on time and content of last meal. Glucose of more than 200 mg/dL in a nonstressed, ambulatory subject supports the diagnosis of Diabetes Mellitus. Hematocrit Auto (Bld) [Volum e fraction]Ordered By: Jonn Wallace on 01-12-2022 Hematocrit (Bld) [Volume fraction] 34.0 % 38.8-50.0 [facility] Laboratory - Chemistry and C hemistry - challengeOrdered By: Jonn Wallace on 01-12-2022 Magnesium [Mass/Vol] 1.9 mg/dL 1.6-2.6 [facility] Laboratory - Hematology and Cell countsOrdered By: Jonn Wallace on 01-12-2022 Nucleated RBC/100 WBC (Bld) [Ratio] 0.1 % 0-0.5 [facility] Lymphocytes Auto (Bld) [#/Vo l]Ordered By: Jonn Wallace on 01-12-2022 Lymphocytes (Bld) [#/Vol] 1.6 10*3/uL 1.00-4.8 [facility] Lymphocytes/100 WBC Auto (Bl d)Ordered By: Jonn Wallace on 01-12-2022 Lymphocytes/100 WBC (Bld) 19.6 % [facility] MCH Auto (RBC) [Entitic mass ]Ordered By: Jonn Wallace on 01-12-2022 MCH (RBC) [Entitic mass] 30.9 pg 27.5-35.2 [facility] MCHC Auto (RBC) [Mass/Vol]Or dered By: Jonn Wallace on 01-12-2022 MCHC (RBC) [Mass/Vol] 33.9 g/dL 32.5-35.6 [facility] MCV Auto (RBC) [Entitic vol] Ordered By: Jonn Wallace on 01-12-2022 MCV (RBC) [Entitic vol] 91.2 fL 83.5-101 [facility] Monocytes Auto (Bld) [#/Vol] Ordered By: Jonn Wallace on 01-12-2022 Monocytes (Bld) [#/Vol] 0.6 10*3/uL 0.0-0.8 [facility] Monocytes/100 WBC Auto (Bld) Ordered By: Jonn Wallace on 01-12-2022 Monocytes/100 WBC (Bld) 7.2 % [facility] Neutrophils Auto (Bld) [#/Vo l]Ordered By: Jonn Wallace on 01-12-2022 Neutrophils (Bld) [#/Vol] 5.5 10*3/uL 1.8-7.7 [facility] Neutrophils/100 WBC Auto (Bl d)Ordered By: Jonn Wallace on 01-12-2022 Neutrophils/100 WBC (Bld) 66.3 % [facility] No Panel InformationOrdered By: Jonn Wallace on 01-12-2022 Estimated GFR () > 60 mL/Min [facility] Comment on above: GFR estimated refere nce range: According to KDOQI guidelines, <60 ml/min/1.73m2 is sufficient to diagnose a patient with chronic kidney disease. Pharmacy Creatinine Clearance (Chem 82.85 [facility] Platelet mean volume Auto (B ld) [Entitic vol]Ordered By: Jonn Wallace on 01-12-2022 Platelet mean volume (Bld) [Entitic vol] 9.8 fL 6.6-10.1 [facility] Platelets Auto (Bld) [#/Vol] Ordered By: Jonn Wallace on 01-12-2022 Platelets (Bld) [#/Vol] 202 10*3/uL 150-450 [facility] RBC Auto (Bld) [#/Vol]Ordere d By: Jonn Wallace on 01-12-2022 RBC (Bld) [#/Vol] 3.73 10*6/uL 3.90-5.60 [facility] Serum or plasma calcium regi urement (mass/volume)Ordered By: Jonn Wallace on 01-12-2022 Calcium [Mass/Vol] 8.8 mg/dL 8.2-10.2 [facility] Serum or plasma chloride taryn surement (moles/volume)Ordered By: Jonn Wallace on 01-12-2022 Chloride [Moles/Vol] 103 mmol/L 95-114 [facility] Serum or plasma glucose regi urement (mass/volume)Ordered By: Jonn Wallace on 01-12-2022 Glucose [Mass/Vol] 69 mg/dL 70-100 [facility] Comment on above: Delta: 314 on -0510ADA recommended reference rangeRandom Glucose Reference Range is dependent on time and content of last meal. Glucose of more than 200 mg/dL in a nonstressed, ambulatory subject supports the diagnosis of Diabetes Mellitus. Serum or plasma potassium me asurement (moles/volume)Ordered By: Jonn Wallace on 01-12-2022 Potassium [Moles/Vol] 4.2 mmol/L 3.5-5.1 [facility] Serum or plasma sodium measu rement (moles/volume)Ordered By: Jonn Wallace on 01-12-2022 Sodium [Moles/Vol] 137 mmol/L 136-146 [facility] Serum or plasma total carbon dioxide measurement (moles/volume)Ordered By: Jonn Wallace on 01-12-2022 CO2 [Moles/Vol] 26.2 mmol/L 22.0-30.0 [facility] Serum or plasma urea nitroge n measurement (mass/volume)Ordered By: Jonn Wallace on 01-12-2022 Urea nitrogen [Mass/Vol] 26 mg/dL 9- [facility] Activated partial thrombopla stin time (aPTT) in platelet poor plasma by coagulation aOrdered By: Jonn Wallace on 01-11-2022 aPTT Coag (PPP) [Time] 27.5 s 25.1-36.5 [facility] Albumin [Mass/volume] in Ser um or PlasmaOrdered By: Jonn Wallace on 01-11-2022 Albumin [Mass/Vol] 2.7 g/dL 3.2-5.5 [facility] Cholesterol [Mass/volume] in Serum or PlasmaOrdered By: Jonn Wallace on 01-11-2022 Cholesterol [Mass/Vol] 182 mg/dL 140-200 [facility] Comment on above: Chol less than 200 m g/dl low riskChol 201-239 mg/dl borderline riskChol 240 mg/dl and greater high risk Cholesterol in LDL Calc [Mas s/Vol]Ordered By: Jonn Wallace on 01-11-2022 Cholesterol in LDL [Mass/Vol] 114 mg/dL 0-100 [facility] Comment on above: LDL ATP III CLASSIFI CATIONLDL less than 100 mg/dL OptimalLDL 100-129 mg/dL Near or above optimalLDL 130-159 mg/dL Borderline highLDL 160-189 mg/dL HighLDL greater than 189 mg/dL Very high Cholesterol in VLDL Calc [Ma ss/Vol]Ordered By: Jonn Wallace on 01-11-2022 Cholesterol in VLDL [Mass/Vol] 38 mg/dL [facility] Globulin Calc (S) [Mass/Vol] Ordered By: Jonn Wallace on 01-11-2022 Globulin (S) [Mass/Vol] 2.4 g/dL [facility] - CoagulationOrde red By: Jonn Wallace on 01-11-2022 PT Coag (PPP) [Time] 10.1 s 9.0-12.9 [facility] No Panel InformationOrdered By: Jonn Wallace on 01-11-2022 Bedside Glucose Comment Glu2: cleaned meter [facility] Platelet poor plasma interna tional normalized ratio (INR) by coagulation assay (relatOrdered By: Jonn Wallace on 01-11-2022 INR Coag (PPP) [Relative time] 0.9 {INR} [facility] Comment on above: INR Therapeutic Rang e [...] on 01-11-2022 Protein [Mass/Vol] 5.1 g/dL 6.1-7.9 [facility] Serum or plasma alanine walton otransferase measurement without P-5'-P (enzymatic activiOrdered By: Jonn Wallace on 01-11-2022 ALT No additional P-5'-P [Catalytic activity/Vol] 10 U/L 10-60 [facility] Serum or plasma albumin/glob ulin mass ratioOrdered By: Jonn Wallace on 01-11-2022 Albumin/Globulin [Mass ratio] 1.1 {ratio} [facility] Serum or plasma alkaline mari sphatase measurement (enzymatic activity/volume)Ordered By: Jonn Wallace on 01-11-2022 ALP [Catalytic activity/Vol] 110 U/L 32-92 [facility] Serum or plasma aspartate am inotransferase measurement (enzymatic activity/volume)Ordered By: Jonn Wallace on 01-11-2022 AST [Catalytic activity/Vol] 10 U/L 10-42 [facility] Serum or plasma high density lipoprotein (HDL) cholesterol measurementOrdered By: Jonn Wallace on 01-11-2022 Cholesterol in HDL [Mass/Vol] 30 mg/dL 29-71 [facility] Comment on above: HDL CHOL ATP-III CLA SSIFICATION Cardiovascular RiskHDL > or equal to 60 mg/dL LOWHDL < 40 mg/dL HIGH Serum or plasma total biliru bin measurement (mass/volume)Ordered By: Jonn Wallace on 01-11-2022 Bilirubin [Mass/Vol] 0.3 mg/dL 0.3-1.2 [facility] Serum or plasma total choles terol/high density lipoprotein (HDL) cholesterol mass ratOrdered By: Jonn Wallace on 01-11-2022 Cholesterol.total/Courtney sterol in HDL [Mass ratio] 6.1 {ratio} [facility] Triglyceride [Mass/volume] i n Serum or PlasmaOrdered By: Jonn Wallace on 01-11-2022 Triglyceride [Mass/Vol] 191 mg/dL 35-149 [facility] Comment on above: TRIG ATP III [...] High sensitivity method [Mass/Vol] 46 pg/mL 0-20 [facility] Basophils Auto (Bld) [#/Vol] Ordered By: Mario Phillips on 01-10-2022 Basophils (Bld) [#/Vol] 0.1 10*3/uL 0.0-0.2 [facility] Basophils/100 WBC Auto (Bld) Ordered By: Mario Phillips on 01-10-2022 Basophils/100 WBC (Bld) 1.2 % [facility] Beta-hydroxybutyric acid taryn surementOrdered By: Mario Phillips on 01-10-2022 Beta hydroxybutyrate [Mass/Vol] 0.17 mmol/L 0.05-0.27 [facility] Blood hemoglobin measurement (mass/volume)Ordered By: Mario Phillips on 01-10-2022 Hemoglobin (Bld) [Mass/Vol] 12.0 g/dL 13.0-17.0 [facility] Blood leukocytes automated c ount (number/volume)Ordered By: Mario Phillips on 01-10-2022 WBC (Bld) [#/Vol] 9.8 10*3/uL 4.5-11.0 [facility] COVID-19 Positive/NegativeOr dered By: Mario Phillips on 01-10-2022 SARS-CoV-2 (COVID-19) N gene HONEY+probe Ql (Resp) Negative Negative [facility] Comment on above: Testing for SARS-CoV -2 by RT-PCRThis test was developed and its performance characteristics determined by [employer] and validated at the [facility]. This test has not been FDA cleared [...] (COVID-19) Ag IA.rapid Ql (Resp) Negative Negative [facility] Comment on above: This is a duplicate Estelita SARS Antigen (RACIEL) result to be used for statistical tracking purpose only. Creatinine and Glomerular fi ltration rate.predicted panel (S/P/Bld)Ordered By: Mario Phillips on 01-10-2022 Creatinine [Mass/Vol] 1.30 mg/dL 0.64-1.27 [facility] Eosinophils Auto (Bld) [#/Vo l]Ordered By: Mario Phillips on 01-10-2022 Eosinophils (Bld) [#/Vol] 0.4 10*3/uL 0.0-0.45 [facility] Eosinophils/100 WBC Auto (Bl d)Ordered By: Mario Phillips on 01-10-2022 Eosinophils/100 WBC (Bld) 4.2 % [facility] Erythrocyte distribution wid th Auto (RBC) [Ratio]Ordered By: Mario Phillips on 01-10-2022 Erythrocyte distribution width (RBC) [Ratio] 14.0 % 12.0-14.8 [facility] Estimated glomerular filtrat ion rate (GFR) non- AmericanOrdered By: Mario Phillips on 01-10-2022 GFR/1.73 sq M.predicted among non-blacks MDRD (S/P/Bld) [Vol rate/Area] 58 mL/Min [facility] Glucose mean value [Mass/vol ume] in Blood Estimated from glycated hemoglobinOrdered By: Jonn Wallace on 01-10-2022 Average glucose Estimated from glycated hemoglobin (Bld) [Mass/Vol] 407 mg/dL [facility] Hematocrit Auto (Bld) [Volum e fraction]Ordered By: Mario Phillips on 01-10-2022 Hematocrit (Bld) [Volume fraction] 35.2 % 38.8-50.0 [facility] Hemoglobin A1c percentageOrd ered By: Jonn Wallace on 01-10-2022 HbA1c (Bld) [Mass fraction] 15.8 % 4.3-5.6 [facility] Comment on above: Increased risk for d iabetes: 5.7 - 6.4diabetes: >6.4glycemic control for adults with diabetes: <7.0 Laboratory - Chemistry and C hemistry - challengeOrdered By: Mario Phillips on 01-10-2022 Natriuretic peptide B (Bld) [Mass/Vol] 252.0 pg/mL 5-100 [facility] Laboratory - Hematology and Cell countsOrdered By: Mario Phillips on 01-10-2022 Nucleated RBC/100 WBC (Bld) [Ratio] 0.0 % 0-0.5 [facility] Laboratory - Microbiology an d Antimicrobial susceptibilityOrdered By: Mario Phillips on 01-10-2022 SARS-CoV-2 (COVID-19) RNA HONEY+probe Ql (Unsp spec) N/A [facility] Lymphocytes Auto (Bld) [#/Vo l]Ordered By: Mario Phillips on 01-10-2022 Lymphocytes (Bld) [#/Vol] 1.2 10*3/uL 1.00-4.8 [facility] Lymphocytes/100 WBC Auto (Bl d)Ordered By: Mario Phillips on 01-10-2022 Lymphocytes/100 WBC (Bld) 12.3 % [facility] MCH Auto (RBC) [Entitic mass ]Ordered By: Mario Phillips on 01-10-2022 MCH (RBC) [Entitic mass] 31.1 pg 27.5-35.2 [facility] MCHC Auto (RBC) [Mass/Vol]Or dered By: Mario Phillips on 01-10-2022 MCHC (RBC) [Mass/Vol] 34.1 g/dL 32.5-35.6 [facility] MCV Auto (RBC) [Entitic vol] Ordered By: Mario Phillips on 01-10-2022 MCV (RBC) [Entitic vol] 91.2 fL 83.5-101 [facility] Monocytes Auto (Bld) [#/Vol] Ordered By: Mario Phillips on 01-10-2022 Monocytes (Bld) [#/Vol] 0.5 10*3/uL 0.0-0.8 [facility] Monocytes/100 WBC Auto (Bld) Ordered By: Mario Phillips on 01-10-2022 Monocytes/100 WBC (Bld) 4.8 % [facility] Neutrophils Auto (Bld) [#/Vo l]Ordered By: Mario Phillips on 01-10-2022 Neutrophils (Bld) [#/Vol] 7.6 10*3/uL 1.8-7.7 [facility] Neutrophils/100 WBC Auto (Bl d)Ordered By: Mario Phillips on 01-10-2022 Neutrophils/100 WBC (Bld) 77.5 % [facility] No Panel InformationOrdered By: Mario Phillips on 01-10-2022 SARS Antigen (LFIA) [facility] Estimated GFR () > 60 mL/Min [facility] Comment on above: GFR estimated refere nce range: According to KDOQI guidelines, <60 ml/min/1.73m2 is sufficient to diagnose a patient with chronic kidney disease. Pharmacy Creatinine Clearance (Chem 76.93 [facility] No Panel InformationOrdered By: Jonn Wallace on 01-10-2022 D-Dimer Quantitative (PE/DVT) < 200 ng/mL 0-243 [facility] Comment on above: The reference range for [...] volume (Bld) [Entitic vol] 9.8 fL 6.6-10.1 [facility] Platelets Auto (Bld) [#/Vol] Ordered By: Mario Phillips on 01-10-2022 Platelets (Bld) [#/Vol] 197 10*3/uL 150-450 [facility] RBC Auto (Bld) [#/Vol]Ordere d By: Mario Phillips on 01-10-2022 RBC (Bld) [#/Vol] 3.86 10*6/uL 3.90-5.60 [facility] Serum or plasma calcium regi urement (mass/volume)Ordered By: Mario Phillips on 01-10-2022 Calcium [Mass/Vol] 8.3 mg/dL 8.2-10.2 [facility] Serum or plasma chloride taryn surement (moles/volume)Ordered By: Mario Phillips on 01-10-2022 Chloride [Moles/Vol] 94 mmol/L 95-114 [facility] Serum or plasma glucose regi urement (mass/volume)Ordered By: Mario Phillips on 01-10-2022 Glucose [Mass/Vol] 525 mg/dL 70-100 [facility] Comment on above: Critical valueresult calledat 1528 on 01/10/22ADA recommended reference rangeRandom Glucose Reference Range is dependent on time and content of last meal. Glucose of more than 200 mg/dL in a nonstressed, ambulatory subject supports the diagnosis of Diabetes Mellitus. Serum or plasma potassium me asurement (moles/volume)Ordered By: Mario Phillips on 01-10-2022 Potassium [Moles/Vol] 4.6 mmol/L 3.5-5.1 [facility] Serum or plasma sodium measu rement (moles/volume)Ordered By: Mario Phillips on 01-10-2022 Sodium [Moles/Vol] 126 mmol/L 136-146 [facility] Serum or plasma total carbon dioxide measurement (moles/volume)Ordered By: Mario Phillips on 01-10-2022 CO2 [Moles/Vol] 22.7 mmol/L 22.0-30.0 [facility] Serum or plasma urea nitroge n measurement (mass/volume)Ordered By: Mario Phillips on 01-10-2022 Urea nitrogen [Mass/Vol] 17 mg/dL 9-23 [facility] TSH DL <= 0.005 mIU/L QnOrde red By: Jonn Wallace on 01-10-2022 TSH Qn 4.22 m[IU]/L 0.45-5.33 [facility] Troponin I.cardiac [Mass/vol ume] in Serum or Plasma by High sensitivity methodOrdered By: Mario Phillips on 01-10-2022 Troponin I.cardiac High sensitivity method [Mass/Vol] 43 pg/mL 0-20 [facility] COVID Quick Testingon 2020 Result Positive [facility] Other A1C HEMOGLOBINon 10-07-2021 HbA1c (Bld) [Mass fraction] % [facility] [employer] Other Glucose - FINGER STICKon Glucose [Mass/Vol] 573 mg/dL [facility] [employer] Other HbA1c (Bld) [Mass fraction]o n 07-20-2021 A1C HEMOGLOBIN [facility] [employer] Other CBC With Platelet and Differ entialon 12-29-2020 Basophils (Bld) [#/Vol] 0.0 10*3/uL Normal 0.0-0.2 [facility] Comment on above: Performed By: #### C BCWD ####[facility] [facility] [phone] Basophils/100 WBC (Bld) 0.4 % Normal [facility] Comment on above: Performed By: #### C BCWD ####[facility] [facility] [phone] Eosinophils (Bld) [#/Vol] 0.4 10*3/uL Normal 0.0-0.7 [facility] Comment on above: Performed By: #### C BCWD ####[facility] [facility] [phone] Eosinophils/100 WBC (Bld) 3.6 % Normal [facility] Comment on above: Performed By: #### C BCWD ####[facility] [facility] [phone] Erythrocyte distribution width (RBC) [Ratio] 16.1 % Critically high 11.5-14.5 [facility] Comment on above: Performed By: #### C BCWD ####[facility] [facility] [phone] Hematocrit (Bld) [Volume fraction] 33.1 % Low 42.0-52.0 [facility] Comment on above: Performed By: #### C BCWD ####[facility] [facility] [phone] Hemoglobin (Bld) [Mass/Vol] 10.8 g/dL Low 14.0-18.0 [facility] Comment on above: Performed By: #### C BCWD ####[facility] [facility] [phone] Lymphocytes (Bld) [#/Vol] 1.1 10*3/uL Normal 1.0-4.8 [facility] Comment on above: Performed By: #### C BCWD ####[facility] [facility] [phone] Lymphocytes/100 WBC (Bld) 9.4 % Normal [facility] Comment on above: Performed By: #### C BCWD ####[facility] [facility] [phone] MCH (RBC) [Entitic mass] 28.6 pg Normal 27.0-31.3 [facility] Comment on above: Performed By: #### C BCWD ####[facility] [facility] [phone] MCHC (RBC) [Mass/Vol] 32.8 % Low 33.0-37.0 [facility] Comment on above: Performed By: #### C BCWD ####[facility] [facility] [phone] MCV (RBC) [Entitic vol] 87.4 fL Normal 80.0-100.0 [facility] Comment on above: Performed By: #### C BCWD ####[facility] [facility] [phone] Monocytes (Bld) [#/Vol] 0.7 10*3/uL Normal 0.2-0.8 [facility] Comment on above: Performed By: #### C BCWD ####[facility] [facility] [phone] Monocytes/100 WBC (Bld) 5.9 % Normal [facility] Comment on above: Performed By: #### C BCWD ####[facility] [facility] [phone] Neutrophils (Bld) [#/Vol] 9.4 10*3/uL Critically high 1.4-6.5 [facility] Comment on above: Performed By: #### C BCWD ####[facility] [facility] [phone] Neutrophils/100 WBC (Bld) 80.7 % Normal [facility] Comment on above: Performed By: #### C BCWD ####[facility] [facility] [phone] Platelets (Bld) [#/Vol] 314 10*3/uL Normal 130-400 [facility] Comment on above: Performed By: #### C BCWD ####[facility] [facility] [phone] RBC (Bld) [#/Vol] 3.79 10*6/uL Low 4.70-6.10 [facility] Comment on above: Performed By: #### C BCWD ####[facility] [facility] [phone] WBC (Bld) [#/Vol] 11.7 10*3/uL Critically high 4.8-10.8 [facility] Comment on above: Performed By: #### C BCWD ####[facility] [facility] [phone] CBC auto differentialon 12-12 Basophils (Bld) [#/Vol] 0.0 10*3/uL 0.0 - 0.2 K/uL [facility] [employer] Work Phone: Basophils/100 WBC (Bld) 0.4 % [facility] [employer] Phone: Eosinophils (Bld) [#/Vol] 0.4 10*3/uL 0.0 - 0.7 K/uL [facility] [employer] Work Phone: Eosinophils/100 WBC (Bld) 3.6 % [employer] [address] [employer] Phone: Erythrocyte distribution width (RBC) [Ratio] 16.1 % High 11.5 - 14.5 % [address] [employer] Phone: Hematocrit (Bld) [Volume fraction] 33.1 % Low 42.0 - 52.0 % [address] [employer] Phone: Hemoglobin (Bld) [Mass/Vol] 10.8 g/dL Low 14.0 - 18.0 g/dL [address] [address] [employer] Phone: Interpretation and review of laboratory results Abnormal [address] [address] [employer] Phone: Lymphocytes (Bld) [#/Vol] 1.1 10*3/uL 1.0 - 4.8 K/uL [address] [address] [employer] Phone: Lymphocytes/100 WBC (Bld) 9.4 % [address] [employer] Phone: MCH (RBC) [Entitic mass] 28.6 pg 27.0 - 31.[address] [employer] Phone: MCHC (RBC) [Mass/Vol] 32.8 % Low 33.0 - 37.0 % [address] [employer] Phone: MCV (RBC) [Entitic vol] 87.4 fL 80.0 - 100.[address] [employer] Phone: Monocytes (Bld) [#/Vol] 0.7 10*3/uL 0.2 - 0.8 K/uL [address] [employer] Phone: Monocytes/100 WBC (Bld) 5.9 % [employer] Phone: Neutrophils Absolute 9.4 K/uL High 1.4 - 6 .5 K/uL [address] [employer] Phone: Neutrophils/100 WBC (Bld) 80.7 % [address] [employer] Phone: Platelets (Bld) [#/Vol] 314 10*3/uL 130 - 400 K/uL [facility] [employer] Work Phone: RBC (Bld) [#/Vol] 3.79 10*6/uL Low [facility] [employer] Work Phone: WBC (Bld) [#/Vol] 11.7 10*3/uL High 4.8 - 10.8 K/uL [facility] [employer] Work Phone: Comprehensive Metabolic Pane l reflex Mgon 12-29-2020 Anion gap [Moles/Vol] 19 mmol/L Critically high 9-15 [facility] Comment on above: Performed By: #### C MPX ####[facility] [facility] [phone] Albumin [Mass/Vol] 3.7 g/dL Normal 3.5-4.6 [facility] Comment on above: Performed By: #### C MPX ####[facility] [facility] [phone] ALP [Catalytic activity/Vol] 109 U/L Critically high 35-104 [facility] Comment on above: Performed By: #### C MPX ####[facility] [facility] [phone] ALT [Catalytic activity/Vol] 13 U/L Normal 0-41 [facility] Comment on above: Performed By: #### C MPX ####[facility] [facility] [phone] AST [Catalytic activity/Vol] 15 U/L Normal 0-40 [facility] Comment on above: Performed By: #### C MPX ####[facility] [facility] [phone] Bilirubin [Mass/Vol] mg/dL Normal 0.2-0.7 [facility] Comment on above: Performed By: #### C MPX ####[facility] [facility] [phone] Calcium [Mass/Vol] 9.4 mg/dL Normal 8.5-9.9 [facility] Comment on above: Performed By: #### C MPX ####[facility] [place] [phone] Chloride [Moles/Vol] 104 mmol/L Normal 95-107 [facility] Comment on above: Performed By: #### C MPX ####[facility] [facility] [place] [phone] CO2 [Moles/Vol] 22 mmol/L Normal 20-31 [facility] Comment on above: Performed By: #### C MPX ####[facility] [facility] [place] [phone] Creatinine [Mass/Vol] 1.50 mg/dL Critically high 0.70-1.20 [facility] Comment on above: Performed By: #### C MPX ####[facility] [facility] [place] [phone] GFR/1.73 sq M predicted among blacks MDRD (S/P/Bld) [Vol rate/Area] mL/min/{1.73_m2} Normal >60 [facility] Comment on above: Result Comment: >60 mL/min/1.73m2 EGFR, calc. for ages 18 and older using the MDRD formula (not corrected for weight), is valid for stable renal function. Performed By: #### C MPX ####[facility] [facility] [place] [phone] GFR/1.73 sq M.predicted MDRD (S/P/Bld) [Vol rate/Area] 49.6 mL/min/{1.73_m2} Low >60 [facility] Comment on above: Result Comment: >60 mL/min/1.73m2 EGFR, calc. for ages 18 and older using the MDRD formula (not corrected for weight), is valid for stable renal function. Performed By: #### C MPX ####[facility] [facility] [place] [phone] Globulin (S) [Mass/Vol] 3.2 g/dL Normal 2.3-3.5 M [facility] Comment on above: Performed By: #### C MPX ####[facility] [facility] [place] [phone] Glucose [Mass/Vol] 211 mg/dL Critically high 70-99 M [facility] Comment on above: Performed By: #### C MPX ####[facility] [facility] [phone] Potassium reflex Mg 5.2 mEq/L Critically high 3.4-4.9 [facility] Comment on above: Performed By: #### C MPX ####[facility] [facility] [phone] Protein [Mass/Vol] 6.9 g/dL Normal 6.3-8.0 [facility] Comment on above: Performed By: #### C MPX ####[facility] [facility] [phone] Sodium [Moles/Vol] 145 mmol/L Critically high 135-144 M [facility] Comment on above: Performed By: #### C MPX ####[facility] [facility] [phone] Urea nitrogen [Mass/Vol] 54 mg/dL Critically high 6-20 [facility] Comment on above: Performed By: #### C MPX ####[facility] [facility] [phone] Comprehensive Metabolic Pane l w/ Reflex to MGon 12-29-2020 Albumin [Mass/Vol] 3.7 g/dL 3.5 - 4.6 g/dL [employer] [address] [employer] Phone: ALP [Catalytic activity/Vol] 109 U/L High 35 - 104 U/L [employer] [address] [employer] Phone: ALT [Catalytic activity/Vol] 13 U/L 0 - 41 U/L [address] [address] [employer] Phone: Anion gap [Moles/Vol] 19 mmol/L High [employer] Work Phone: AST [Catalytic activity/Vol] 15 U/L 0 - 40 U/L [employer] Work Phone: Bilirubin Ql (U) <0.2 0.2 - 0.7 mg/dL [employer] Work Phone: Calcium [Mass/Vol] 9.4 mg/dL 8.5 - 9.9 mg/dL [employer] Work Phone: Chloride [Moles/Vol] 104 mmol/L [employer] Work Phone: CO2 [Moles/Vol] 22 mmol/L [facility] Work Phone: Creatinine [Mass/Vol] 1.5 mg/dL High 0.70 - 1.20 mg/dL [employer] Work Phone: GFR >60.0 >60 [employer] Work Phone: Comment on above: >60 mL/min/1.73m2 EG FR, calc. for ages 18 and older using the MDRD formula (not corrected for weight), is valid for stable renal function. GFR Non- 49.6 Low >60 [employer] Work Phone: Comment on above: >60 mL/min/1.73m2 EG FR, calc. for ages 18 and older using the MDRD formula (not corrected for weight), is valid for stable renal function. Globulin (S) [Mass/Vol] 3.2 g/dL 2.3 - 3.5 g/dL [employer] Work Phone: Glucose [Mass/Vol] 211 mg/dL High 70 - 99 mg/dL [employer] Work Phone: Interpretation and review of laboratory results Abnormal [employer] Work Phone: Potassium [Moles/Vol] 5.2 mmol/L High [employer] Work Phone: Protein [Mass/Vol] 6.9 g/dL 6.3 - 8.0 g/dL [facility]: Sodium [Moles/Vol] 145 mmol/L High [facility] Phone: Urea nitrogen [Mass/Vol] 54 mg/dL High 6 - 20 mg/dL [facility] Phone: POCT Glucoseon 12-29-2020 Glucose [Mass/Vol] 168 mg/dL Critically high 60-115 M [facility] Comment on above: Performed By: #### P GLU ####[facility] [place] [phone] POC Performed on ACCU-CHEK [facility] Comment on above: Performed By: #### P GLU ####[facility] [place] [phone] Glucose [Mass/Vol] 168 mg/dL High 60 - 115 mg/dl [facility] [employer] Phone: Interpretation and review of laboratory results Abnormal [facility] Phone: Performed on ACCU-CHEK [facility] [employer] Phone: Glucose [Mass/Vol] 242 mg/dL Critically high 60-115 [facility] Comment on above: Performed By: #### P GLU #### [facility] [address] [place] [address] POC Performed on ACCU-CHEK [facility] Comment on above: Performed By: #### P GLU #### [facility] [address] [place] [address] Glucose [Mass/Vol] 242 mg/dL High 60 - 115 mg/dl [facility] [employer] Phone: Interpretation and review of laboratory results Abnormal [facility] Phone: Performed on ACCU-CHEK [facility] Phone: APTTon 12-28-2020 aPTT Coag (Bld) [Time] 28.8 s [facility] [employer] Work Phone: Comment on above: Effective 08/17/2020: Heparin Therapeutic Range: 64.0 98.0 seconds. Basic Metabolic Panelon 12-12 Calcium [Mass/Vol] 9.3 mg/dL Normal 8.5-9.9 [facility] Comment on above: Performed By: #### B MP #### [facility] [address] [place] [address] Chloride [Moles/Vol] 99 mmol/L Normal 95-107 [facility] Comment on above: Performed By: #### B MP #### [facility] [address] [place] [address] CO2 [Moles/Vol] 29 mmol/L Normal 20-31 [facility] Comment on above: Performed By: #### B MP #### [facility] [address] [place] [address] Creatinine [Mass/Vol] 1.59 mg/dL Critically high 0.70-1.20 [facility] Comment on above: Performed By: #### B MP #### [facility] [address] [place] [address] GFR/1.73 sq M predicted among blacks MDRD (S/P/Bld) [Vol rate/Area] 56.2 mL/min/{1.73_m2} Low >60 [facility] Comment on above: Result Comment: >60 mL/min/1.73m2 EGFR, calc. for ages 18 and older using the MDRD formula (not corrected for weight), is valid for stable renal function. Performed By: #### B MP #### [facility] [address] [place] [address] GFR/1.73 sq M.predicted MDRD (S/P/Bld) [Vol rate/Area] 46.4 mL/min/{1.73_m2} Low >60 [facility] Comment on above: Result Comment: >60 mL/min/1.73m2 EGFR, calc. for ages 18 and older using the MDRD formula (not corrected for weight), is valid for stable renal function. Performed By: #### B MP #### [facility] [address] [place] [address] Glucose [Mass/Vol] 73 mg/dL Normal 70-99 [facility] Comment on above: Performed By: #### B MP #### [facility] [address] [place] [address] Potassium [Moles/Vol] 4.8 mmol/L Normal 3.4-4.9 [facility] Comment on above: Performed By: #### B MP #### [facility] [address] [place] [address] Sodium [Moles/Vol] 137 mmol/L Normal 135-144 [facility] Comment on above: Performed By: #### B MP #### [facility] [address] [place] [address] Urea nitrogen [Mass/Vol] 58 mg/dL Critically high 6-20 [facility] Comment on above: Performed By: #### B MP #### [facility] [address] [place] [address] Anion gap [Moles/Vol] 9 mmol/L Normal 9-15 [facility] Comment on above: Performed By: #### B MP #### [facility] [address] [place] [address] Anion gap [Moles/Vol] 9 mmol/L [facility] [employer] Work Phone: Calcium [Mass/Vol] 9.3 mg/dL 8.5 - 9.9 mg/dL [facility] [employer] Work Phone: Chloride [Moles/Vol] 99 mmol/L [facility] [employer] Work Phone: CO2 [Moles/Vol] 29 mmol/L [facility] Work Phone: Creatinine [Mass/Vol] 1.59 mg/dL High 0.70 - 1.20 mg/dL [employer] [address] [employer] Phone: GFR 56.2 Low >60 [employer] Phone: Comment on above: >60 mL/min/1.73m2 EG FR, calc. for ages 18 and older using the MDRD formula (not corrected for weight), is valid for stable renal function. GFR Non- 46.4 Low >60 [facility] Phone: Comment on above: >60 mL/min/1.73m2 EG FR, calc. for ages 18 and older using the MDRD formula (not corrected for weight), is valid for stable renal function. Glucose [Mass/Vol] 73 mg/dL 70 - 99 mg/dL [facility] Phone: Interpretation and review of laboratory results Abnormal [facility] Phone: Potassium [Moles/Vol] 4.8 mmol/L [facility] [employer] Phone: Sodium [Moles/Vol] 137 mmol/L [facility] Phone: Urea nitrogen [Mass/Vol] 58 mg/dL High 6 - 20 mg/dL [facility] Phone: CBC Auto Differentialon 03- Basophils (Bld) [#/Vol] 0.0 10*3/uL 0.0 - 0.2 K/uL [facility] Phone: Basophils/100 WBC (Bld) 0.3 % [facility] Phone: Eosinophils (Bld) [#/Vol] 0.6 10*3/uL 0.0 - 0.7 K/uL [facility] Phone: Eosinophils/100 WBC (Bld) 5.5 % [facility] Phone: Erythrocyte distribution width (RBC) [Ratio] 15.1 % High 11.5 - 14.5 % [facility] Phone: Hematocrit (Bld) [Volume fraction] 34.7 % Low 42.0 - 52.0 % [employer] [address] [employer] Phone: Hemoglobin (Bld) [Mass/Vol] 11.5 g/dL Low 14.0 - 18.0 g/dL [employer] [address] [employer] Phone: Interpretation and review of laboratory results Abnormal [employer] [address] [employer] Phone: Lymphocytes (Bld) [#/Vol] 1.4 10*3/uL 1.0 - 4.8 K/uL [employer] [address] [employer] Phone: Lymphocytes/100 WBC (Bld) 13.4 % [employer] [address] [employer] Phone: MCH (RBC) [Entitic mass] 28.8 pg 27.0 - 31.[address] [employer] Phone: MCHC (RBC) [Mass/Vol] 33.0 % 33.0 - 37.0 % [address] [address] [employer] Phone: MCV (RBC) [Entitic vol] 87.0 fL 80.0 - 100.[address] [employer] Phone: Monocytes (Bld) [#/Vol] 0.8 10*3/uL 0.2 - 0.8 K/uL [employer] [address] [employer] Phone: Monocytes/100 WBC (Bld) 7.5 % [facility] Phone: Neutrophils Absolute 7.5 K/uL High 1.4 - 6 .5 K/uL [facility] Phone: Neutrophils/100 WBC (Bld) 73.3 % [address] [address] [employer] Phone: Platelets (Bld) [#/Vol] 306 10*3/uL 130 - 400 K/uL [employer] [address] [employer] Phone: RBC (Bld) [#/Vol] 3.99 10*6/uL Low [address] [address] [employer] Phone: WBC (Bld) [#/Vol] 10.2 10*3/uL 4.8 - 10.8 K/uL [facility] [employer] Work Phone: CBC With Platelet and Differ entialon 12-28-2020 Basophils (Bld) [#/Vol] 0.0 10*3/uL Normal 0.0-0.2 [facility] Comment on above: Performed By: #### C BCWD #### [facility] [address] [place] [address] Basophils/100 WBC (Bld) 0.3 % Normal [facility] Comment on above: Performed By: #### C BCWD #### [facility] [address] [place] [address] Eosinophils (Bld) [#/Vol] 0.6 10*3/uL Normal 0.0-0.7 [facility] Comment on above: Performed By: #### C BCWD #### [facility] [address] [place] [address] Eosinophils/100 WBC (Bld) 5.5 % Normal [facility] Comment on above: Performed By: #### C BCWD #### [facility] [address] [place] [address] Erythrocyte distribution width (RBC) [Ratio] 15.1 % Critically high 11.5-14.5 [facility] Comment on above: Performed By: #### C BCWD #### [facility] [address] [place] [address] Hematocrit (Bld) [Volume fraction] 34.7 % Low 42.0-52.0 [facility] Comment on above: Performed By: #### C BCWD #### [facility] [address] [place] [address] Hemoglobin (Bld) [Mass/Vol] 11.5 g/dL Low 14.0-18.0 [facility] Comment on above: Performed By: #### C BCWD #### [facility] [address] [place] [address] Lymphocytes (Bld) [#/Vol] 1.4 10*3/uL Normal 1.0-4.8 [facility] Comment on above: Performed By: #### C BCWD #### [facility] [address] [place] [address] Lymphocytes/100 WBC (Bld) 13.4 % Normal [facility] Comment on above: Performed By: #### C BCWD #### [facility] [address] [place] [address] MCH (RBC) [Entitic mass] 28.8 pg Normal 27.0-31.3 [facility] Comment on above: Performed By: #### C BCWD #### [facility] [address] [place] [address] MCHC (RBC) [Mass/Vol] 33.0 % Normal 33.0-37.0 [facility] Comment on above: Performed By: #### C BCWD #### [facility] [address] [place] [address] MCV (RBC) [Entitic vol] 87.0 fL Normal 80.0-100.0 [facility] Comment on above: Performed By: #### C BCWD #### [facility] [address] [place] [address] Monocytes (Bld) [#/Vol] 0.8 10*3/uL Normal 0.2-0.8 [facility] Comment on above: Performed By: #### C BCWD #### [facility] [address] [place] [address] Monocytes/100 WBC (Bld) 7.5 % Normal [facility] Comment on above: Performed By: #### C BCWD #### [facility] [address] [place] [address] Neutrophils (Bld) [#/Vol] 7.5 10*3/uL Critically high 1.4-6.5 [facility] Comment on above: Performed By: #### C BCWD #### [facility] [address] [place] [address] Neutrophils/100 WBC (Bld) 73.3 % Normal [facility] Comment on above: Performed By: #### C BCWD #### [facility] [address] [place] [address] Platelets (Bld) [#/Vol] 306 10*3/uL Normal 130-400 [facility] Comment on above: Performed By: #### C BCWD #### [facility] [address] [place] [address] RBC (Bld) [#/Vol] 3.99 10*6/uL Low 4.70-6.10 [facility] Comment on above: Performed By: #### C BCWD #### [facility] [address] [place] [address] WBC (Bld) [#/Vol] 10.2 10*3/uL Normal 4.8-10.8 [facility] Comment on above: Performed By: #### C BCWD #### [facility] [address] [place] [address] COVID-19on 12-28-2020 COVID-19, NAAT Not Detected Normal Not Detect [facility] Comment on above: Result Comment: Rapi [...] authorized laboratories. Fact sheet for Healthcare Providers: https://www.fda.gov/media/338327/download Fact sheet for Patients: https://www.fda.gov/media/218361/download METHODOLOGY: Isothermal Nucleic Acid Amplification Performed By: #### C OVRG #### [facility] [address] [place] [address] COVID-19, Rapidon 12-28-2020 SARS-CoV-2, NAAT Not Detected Not Detected [facility] Phone: Comment on above: Rapid NAAT: Negative [...] authorized laboratories. Fact sheet for Healthcare Providers: https://www.fda.gov/media/290503/download Fact sheet for Patients: https://www.fda.gov/media/546289/download METHODOLOGY: Isothermal Nucleic Acid Amplification POCT Glucoseon 12-28-2020 Glucose [Mass/Vol] 86 mg/dL Normal 60-115 [facility] Comment on above: Performed By: #### P GLU #### [facility] [address] [place] [address] POC Performed on ACCU-CHEK [facility] Comment on above: Performed By: #### P GLU #### [facility] [address] [place] [address] Glucose [Mass/Vol] 86 mg/dL 60 - 115 mg/dl [facility] [employer] Phone: Performed on ACCU-CHEK [facility] [employer] [facility] Phone: Partial Thromboplastin Timeo n 12-28-2020 aPTT Coag (Bld) [Time] 28.8 s Normal 24.4-36.8 [facility] Comment on above: Result Comment: Effe ctive 08/17/2020: Heparin Therapeutic Range: 64.0 ? 98.0 seconds. Performed By: #### P TT #### [facility] [address] [place] [address] Prothrombin Timeon INR Coag (PPP) [Relative time] 1.0 {INR} [facility] Comment on above: Performed By: #### P T #### [facility] [address] [place] [address] PT Coag (PPP) [Time] 13.7 s Normal 12.3-14.9 [facility] Comment on above: Performed By: #### P T #### [facility] [address] [place] [address] Protime-INRon 12-28-2020 INR Coag (PPP) [Relative time] 1.0 {INR} [employer] Phone: PT Coag (PPP) [Time] 13.7 s [facility] [employer] Phone: TYPE AND SCREENon 12-28-2020 ABO/Rh Positive [employer] [address] [employer] Phone: Type and Screen Capture 3 sc rn cellon 12-28-2020 Type and Screen Capture 3 scrn cell PATIENT: MILY Forde LOC: [facility] BILL# : [id number] : 1970 SEX: M ORDERED BY: URIAH BONILLA ORDERED : 12/28/2020 12:26 COLLECTED: 12/28/2020 12:30 ORDER : [id number] RECEIVED : 12/28/2020 13:07 ------ TEST NAME RESULT UNITS RANGES ABN FL ST ABORH Capture O POS F Antibody 3 Cell Scrn Captu NEG F ----- Normal [facility] Comment on above: Performed By: #### T S3C #### [facility] [address] [place] [address] CTA ABDOMINAL AORTA W BILAT RUNOFF W WO CONTRASTon 12-21-2020 Three-vessel distal runoff, right lower extremity. Two-vessel distal runoff, left lower extremity, the anterior tibial and posterior tibial arteries. Bilateral lower extremity edema. Constipation All CT scans at this facility use dose modulation, iterative reconstruction, and/or weight based dosing when appropriate to reduce radiation dose to as low as reasonably achievable. [facility] Work Phone: CTA abdomen, pelvis, bilateral lower [...] to the level of the distal tibia. [address] [address] [employer] Phone: Chip, [facility] Incoming Radiant Results From [facility] - 12/21/2020 9:36 AM EST CTA abdomen, [...] dose to as low as reasonably achievable. [address] [employer] Phone: POCT Venouson 12-21-2020 Creatinine [Mass/Vol] 0.7 mg/dL Low 0.9 - 1.3 mg/dL [address] [employer] Phone: GFR >60 >60 [employer] Phone: Comment on above: >60 mL/min/1.73m2 EG FR, calc. for ages 18 and older using the MDRD formula (not corrected for weight), is valid for stable renal function. GFR Non- >60 >[address] [employer] Phone: Comment on above: >60 mL/min/1.73m2 EG FR, calc. for ages 18 and older using the MDRD formula (not corrected for weight), is valid for stable renal function. Interpretation and review of laboratory results Abnormal [address] [employer] Phone: Performed on SEE BELOW [address] [employer] Phone: Comment on above: Performed on POC Sample Type KELVIN [address] [employer] Phone: CTA ABDOMINAL AORTA W BILAT RUNOFF [...] by: Jaguar Cross MD Signed by: Jaguar rCoss MD 12/21/20 Final result Normal [facility] POCT Venouson 12-20-2020 Creatinine [Mass/Vol] 0.7 mg/dL Low 0.9-1.3 [facility] Comment on above: Performed By: #### P KLEVIN #### [facility] [address] [facility] [address] GFR/1.73 sq M predicted among blacks MDRD (S/P/Bld) [Vol rate/Area] mL/min/{1.73_m2} Normal >60 [facility] Comment on above: Result Comment: >60 mL/min/1.73m2 EGFR, calc. for ages 18 and older using the MDRD formula (not corrected for weight), is valid for stable renal function. Performed By: #### P KELVIN #### [facility] [address] [facility] [address] GFR/1.73 sq M.predicted MDRD (S/P/Bld) [Vol rate/Area] mL/min/{1.73_m2} Normal >60 [facility] Comment on above: Result Comment: >60 mL/min/1.73m2 EGFR, calc. for ages 18 and older using the MDRD formula (not corrected for weight), is valid for stable renal function. Performed By: #### P KELVIN #### [facility] [address] [place] [address] POC Performed on SEE BELOW [facility] Comment on above: Result Comment: Perf ormed on POC Performed By: #### P KELVIN #### [facility] [address] [place] [address] POC Sample Type KELVIN Normal [facility] Comment on above: Performed By: #### P KELVIN #### [facility] [address] [place] [address] Coding Summary.on 01-14-2019 Coding Summary. CODING DATE: 019 FINAL [facility] STATUS: Home (Routine DC) PAYOR: Commercial Insurance APC DESCRIPTION 5054 Level 4 Skin Procedures ADMIT DX: REASON [...] unspecified, not intractable, without status epilepticus Z79.4 group home (current) use of insulin Z79.82 group home (current) use of aspirin Z79.51 group home (current) use of inhaled steroids Z79.899 Other buttermaker continuous churn (current) drug therapy Z88.8 Allergy status to other drugs, medicaments and biological substances status PYMT PROC APC STAT DESCRIPTION DOCTOR NAME DATE 5053 T Adjacent tissue transfer House Fadi 01/08/2019 or rearrangement, scalp, arms and/or legs; defect 10 sq cm or less 24[address] Anesthesia for Luis Sellers Jr., DO 01/08/2019 [...] Rita Mckeon Date Saved: 01/14/2019 12:54 pm Normal [facility] Inpatient Patient Summaryon 01-08-2019 Inpatient Patient Summary [place] Clinical Discharge Instructions PERSON INFORMATION Name: [facility] Admitting Physician: Fatoumata Tirado MD Attending Physician: Fatoumata Tirado MD PCP: Fadi Tenorio DO Discharge Diagnosis: Scalp lesion Comment: PATIENT EDUCATION INFORMATION Instructions: Medication Leaflets: Follow up: With: Address: When: Fatoumata Tirado [address] [place] [address], [facility] [address], [address] [place] [id number] Business (1) In 8 days 01/16/2019 MEDICATION LIST Comment: [facility] Main OR Intraoperative Recor don 01-08-2019 Main OR Intraoperative Record IntraOp Document Type FT Summary Primary Physician: Fatoumata Tirado MD Finalized Date/Time: 01/08/19 14:23:55 Pt. Name: CHANDLER MINOR Yifan/Sex: 1970 Male Med Rec #: [id number] Physician: Fatoumata Tirado MD Financial #: [id number] Pt. Type: A Room/Bed: [place] [address] Admit/Disch: 01/08/19 07:12:00 - 01/08/19 12:35:00 Institution: [...] 1 Entry 2 Entry 3 Case Attendee Luis Sellers Jr., DO, MD, Fatoumata Chavez RN, Andrzej Pierre Role Performed Anesthesiologist of Surgeon - Primary Pipe Line Maintenance Supervisor - Primary Record Time In 01/08/19 09:34:00 01/08/19 09:44:00 01/08/19 09:34:00 Time Out 01/08/19 10:32:00 01/08/19 10:32:00 01/08/19 10:32:00 Procedure CYST LESION CYST LESION CYST LESION REMOVAL(Left) REMOVAL(Left) REMOVAL(Left) Comments Last Modified By: Demetrius MARTÍNEZ, Danielle Romo RN, Danielle Pacheco RN 01/08/19 10:31:49 01/08/19 10:31:49 01/08/19 10:31:49 Entry 4 Entry 5 Case Attendee Demetrius MARTÍNEZ, Danielle Miguel CST, Gary Tao Role Performed Pipe Line Maintenance Supervisor - Primary Scrub - Primary Time In [...] Almazan DO, Luis, Given Participants Candida FLAHERTY, Kathy Quigley RN, Demetrius Dubose RN, Myriam Arango CST, Gary Tao Time Out Complete 01/08/19 [...] FLAP CLOSURE Primary Procedure Yes Primary Surgeon Fatoumata Tirado MD 01/08/19 09:52:00 Stop 01/08/19 10:27:00 Anesthesia Type [...] Jr., DO, Timmis MD, Kathy Quigley RN, Andrea L, Danielle Romo RN Outcomes Met? Yes Last Modified By: [...] By Danielle Romo RN, Barker Krupp RN, Andrzej Pierre, VAN DRIVER, Gary Miguel CST, Gary Tao Outcomes Met? [...] to transfer/transport General Comments: report given to magazine journalistrn. Kassidy merchant rn Dressing/Packing FT Pre-Care Text: [...] safely administered during the perioperative period For [facility] please see scanned medication reconcilliation form for [...] infection General Comments: specimen: left scalp lesion. - shonda martínez Temperature Control Entry 1 Temperature Control BLANKET MISTRAL AIR Quantity 1 Aid PLUS LOWER BODY [[id number]][F] Fluid/[place] Unit Mistral warming system Setting high/43 Body Site Lower anterior torso Last Modified By: Danielle Romo RN 01/08/19 07:32:52 Case Comments Finalized By: Nunu Asif CST Document Signatures Signed By: Danielle Romo RN 01/08/19 10:35 Nunu Asif CST 01/08/19 14:23 Normal [facility] Main OR PACU I Recordon 12-13 Main OR PACU I Record PACU Phase I Docum ent Type FT Summary Primary Physician: Fatoumaat Tirado MD Finalized Date/Time: 01/08/19 11:13:30 Pt. Name: CHANDLER MINOR/Sex: 1970 Male Med Rec #: [id number] Physician: Fatoumata Tirado MD Financial #: [id number] Pt. Type: A Room/Bed: [facility]/ Admit/Disch: 01/08/19 07:12:51 - Institution: [...] 01/08/19 11:03 Sugey Oden RN 01/08/19 11:13 [facility] Main OR PACU II Recordon Main OR PACU II Record PACU Phase II Doc ument Type FT Summary Primary Physician: Fatoumata Tirado MD Finalized Date/Time: 01/08/19 13:45:23 Pt. Name: CHANDLER MINOR Yifan/Sex: 1970 Male Med Rec #: [id number] Physician: Fatoumata Triado MD Financial #: [id number] Pt. Type: A Room/Bed: [facility]/ Admit/Disch: 01/08/19 07:12:51 - Institution: [...] 13:43 Ilana Peguero RN 01/08/19 13:45 Normal [facility] Main OR Preoperative Recordo n 01-08-2019 Main OR Preoperative Record PreOp Document Type FT Summary Primary Physician: Fatoumata Tirado MD Finalized Date/Time: 01/08/19 09:51:30 Pt. Name: MILYCHANDLER/Sex: 1970 Male Med Rec #: [id number] Physician: Fatoumata Tirado MD Financial #: [id number] Pt. Type: A Room/Bed: [place] [address] Admit/Disch: 01/08/19 07:12:51 - Institution: Case Times [...] By: Danielle Romo RN 01/08/19 09:51 Normal [facility] Operative Reporton 9 Operative Report Date of Surgery: 01/08/2019 [...] Fatoumata Tirado Jr., M.D. aek Dictated: 01/08/2019 #[id number] Typed: 01/08/2019 #[id number] cc: Rosi Barragan Jr., M.D. [facility] Comment on above: Result Comment: Elec tronically Signed By: Fatoumata Tirado MD\.br\Date and Time Signed: 01/08/19 14:38 EDT Operative Report Patient: MELVI MINOR Age: 48 years Sex: Male : 1970 Associated Diagnoses: None Author: Fatoumata Tirado MD Postoperative Information Procedure: r/o scalp lesion and advancement flap closure (5cm length) Preoperative Diagnosis: Scalp lesion (LMU46-FR L98.9, Working, Medical). Postoperative Diagnosis: Scalp lesion (YHF08-CI L98.9, Discharge, Medical). Performed by: Fatoumata Tirado MD. Findings: scalp cyst with fistulous tract. Specimens Removed: scalp lesion. Estimated Blood Loss: 10 ml. Medications Complications: None. Normal [facility] Comment on above: Result Comment: Elec tronically Signed By: Fatoumata Tirado MD\.br\Date and Time Signed: 01/08/19 10:45 EDT Patient Education - Texton 0 01-08-2019 Patient Education - Text Normal [facility] Progress Note-Physicianon Protein mass conc [...] list: All Problems Asthma / SNOMED CT 686361667 / Confirmed Carpal tunnel syndrome / SNOMED CT 03220372 / Confirmed bilateral Depression / SNOMED CT 19840932 / Confirmed Diabetes / SNOMED CT 831561775 / Confirmed Acid reflux / SNOMED CT 317370714 / Confirmed Hypertension / SNOMED CT 6740555843 / Confirmed Scalp lesion / SNOMED CT 7427233098 / Confirmed x2 Migraine headache / SNOMED CT 57906666 / Confirmed Parkinson's disease / SNOMED CT 71625170 / Confirmed Sarcoidosis / SNOMED CT 47406723 / Confirmed Seizure / SNOMED CT 554253634 / Confirmed last July was last seizure- in PACU Sleep apnea / SNOMED CT 097621041 / Confirmed uses CPAP Smoker / SNOMED CT 979014107 / Confirmed Added secondary to documentation in [...] results Radiology results ECG interpretation Condition Plan [place] [employer] Anesthesiologists (ASA) physical status classification: Class III. Anesthetic Preoperative Plan Anesthesia: General. . Anesthetic plan, risks, benefits, and alternatives discussed with the patient and/or family. Risks discussed: nausea, vomiting, headache, sore throat, dental injury, serious complications. Patient verbalized understanding. Communication: face to face with (patient 5 minutes, Pt educated on the importance of smoking cessation.). [facility] Comment on above: Result Comment: Elec tronically Signed By: Nehemiah Orosco Jr, DO\.br\Date and Time Signed: 01/08/19 16:48 EDT Coding Summary.on 12-31-2018 Coding Summary. CODING DATE: 019 [facility] STATUS: Home (Routine DC) PAYOR: Commercial Insurance [...] Corado CphT Date Saved: 12/31/2018 01:25 pm [facility] Auto Diffon 12-30-2018 Basophils #/vol (Bld) 0.3 % Normal 0.0-2.0 [facility] Comment on above: Order Comment: Order Added by Asad Expert. Performed By: #### 2 017616, 7502857, [id number] #### [facility] [address] [place] [address] Basophils/Leukocytes Auto Pure number fraction (Bld) 0.0 E9/L Normal 0.0-0.2 [facility] Comment on above: Order Comment: Order Added by Asad Expert. Performed By: #### 2 579441, 3826377, [id number] #### [facility] [address] [place] [address] Eosinophils/100 WBC (Bld) 3.9 % Normal 0.0-8.0 [facility] Comment on above: Order Comment: Order Added by Asad Expert. Performed By: #### 2 234854, 0373928, [id number] #### [facility] [address] [place] [address] Eosinophils/Leukocytes Auto Pure number fraction (Bld) 0.3 E9/L Normal 0.0-0.5 [facility] Comment on above: Order Comment: Order Added by Asad Expert. Performed By: #### 2 035231, 6939188, [id number] #### [facility] [address] [place] [address] Lymphocytes/100 WBC (Bld) 22.4 % Normal 14.0-50.0 [facility] Comment on above: Order Comment: Order Added by Asad Expert. Performed By: #### 2 503586, 5123259, [id number] #### [facility] [address] [place] [address] Lymphocytes/Leukocytes Auto Pure number fraction (Bld) 1.9 E9/L Normal 1.0-4.0 [facility] Comment on above: Order Comment: Order Added by Asad Expert. Performed By: #### 2 336907, 3887003, [id number] #### [facility] [address] [place] [address] Monocytes/100 WBC (Bld) 7.7 % Normal 4.0-14.0 [facility] Comment on above: Order Comment: Order Added by Discern Expert. Performed By: #### 2 744418, 0892887, 60328349 #### [facility] [address] [place] [address] Monocytes/Leukocytes Auto Pure number fraction (Bld) 0.7 E9/L Normal 0.2-1.0 [facility] Comment on above: Order Comment: Order Added by Discern Expert. Performed By: #### 2 407539, 0818523, 25980819 #### [facility] [address] [place] [address] Neutrophils/100 WBC (Bld) 65.7 % Normal 36.0-75.0 [facility] Comment on above: Order Comment: Order Added by Discern Expert. Performed By: #### 2 971046, 4181298, 30519996 #### [facility] [address] [place] [address] Neutrophils/Leukocytes Auto Pure number fraction (Bld) 5.6 E9/L Normal 2.0-7.5 [facility] Comment on above: Order Comment: Order Added by Discern Expert. Performed By: #### 2 225301, 8239021, [id number] #### [facility] [address] [place] [address] BUNon 12-30-2018 Urea nitrogen mass conc 18 mg/dL Normal 5-21 F [facility] Comment on above: Performed By: #### 2 882743, 6315631, 09593316, 8356252, 8912721 #### [facility] [address] [place] [address] CBC w/ Auto Diffon 9 Erythrocyte distribution width Ratio (RBC) 13.1 % Normal 10.9-14.2 [facility] Comment on above: Performed By: #### 2 567845, 3455999, 36384510 #### [facility] [address] [place] [address] Hematocrit Volume Fraction (Bld) 39.6 % Normal 37.7-49.0 [facility] Comment on above: Performed By: #### 2 714898, 2866288, 81977641 #### [facility] [address] [place] [address] Hemoglobin mass conc (Bld) 13.7 g/dL Normal 13.5-17.5 [facility] Comment on above: Performed By: #### 2 213337, 2146920, 98543948 #### [facility] [address] [place] [address] MCH Entitic mass (RBC) 32.5 pg Normal 27.0-34.0 [facility] Comment on above: Performed By: #### 2 538112, 2718130, 63692319 #### [facility] [address] [place] [address] MCHC mass conc (RBC) 34.5 g/dL Normal 33.3-35.7 [facility] Comment on above: Performed By: #### 2 082413, 6288149, 28008635 #### [facility] [address] [place] [address] MCV Entitic volume (RBC) 94.1 fL Normal 80.0-100.0 [facility] Comment on above: Performed By: #### 2 445652, 1794279, 25985367 #### [facility] [address] [place] [address] Platelet mean volume Entitic volume (Bld) 9.1 fL Normal 6.4-10.8 [facility] Comment on above: Performed By: #### 2 484816, 3968462, 69754216 #### [facility] [address] [place] [address] Platelets #/vol (Bld) 229.0 E9/L Normal 150.0- 500. 0 [facility] Comment on above: Performed By: #### 2 736208, 8882595, 34719811 #### [facility] [address] [place] [address] RBC #/vol (Bld) 4.2 E12/L Low 4.3-5.9 [facility] Comment on above: Performed By: #### 2 276669, 7442960, 20139382 #### [facility] [address] [place] [address] WBC corrected for nucl RBC Auto #/vol (Bld) 8.5 E9/L Normal 4.0-11.0 [facility] Comment on above: Performed By: #### 2 801327, 6872550, 54306096 #### [facility] [address] [place] [address] Creatinineon 12-30-2018 Creatinine mass conc 0.8 mg/dL Normal 0.5-1.3 [facility] Comment on above: Performed By: #### 2 385577, 5948048, 02469718, 6692299, 6146073 #### [facility] [address] [place] [address] Glucoseon 12-30-2018 Glucose mass conc 214 mg/dL High 55-199 [facility] Comment on above: Performed By: #### 2 580407, 7316581, 10328523, 9126098, 2092034 #### [facility] [address] [place] [address] Lyteson 12-30-2018 Anion gap molar conc 12 mmol/L Normal 6-16 [facility] Comment on above: Performed By: #### 2 986680, 4124602, 36112338, 9284300, 3854225 #### [facility] [address] [place] [address] Chloride molar conc 103 mmol/L Normal 101-111 [facility] Comment on above: Performed By: #### 2 669142, 8203043, 94289392, 0076057, 2725193 #### [facility] [address] [place] [address] CO2 molar conc 24 mmol/L Normal 21-31 [facility] Comment on above: Performed By: #### 2 529981, 1961316, 04061388, 1641689, 5270664 #### [facility] [address] [place] [address] Potassium molar conc 4.0 mmol/L Normal 3.5-5.3 [facility] Comment on above: Performed By: #### 2 595252, 2674609, 13423853, 6400029, 5619339 #### [facility] [address] [place] [address] Sodium molar conc 135 mmol/L Normal 135-145 [facility] Comment on above: Performed By: #### 2 352918, 7795295, 99441039, 9793981, 8687329 #### [facility] [address] [place] [address] PT & PTTon 12-30-2018 aPTT Coag time (PPP) 30.2 second(s) Normal 25.1-36.5 [facility] Comment on above: Result Comment: Hepa rin therapeutic range (represented by Anti-Factor Xa activity of 0.2 - 0.4 U/mL) corresponds to PTT of 56.6 - 109.0 sec. Performed By: #### 2 931074, 3851369, 13138265 #### [facility] [address] [place] [address] INR Coag RelTime (PPP) 1.0 {INR} [facility] Comment on above: Result Comment: INR results are specifically intended to assess patients stabilized on long-term Anticoagulation therapy suggested INR?s ?Less Intensive Anticoagulation? 2.0 ? 3.0 Conventional Range 3.0 ? 4.5 Performed By: #### 2 050997, 5819951, 97866093 #### [facility] [address] [place] [address] Prothrombin time (PT) Coag time (PPP) 10.6 second(s) Normal 10.2-12.9 [facility] Comment on above: Performed By: #### 2 402343, 7852940, 68508344 #### [facility] [address] [place] [address] XR Chest 2 Viewson 9 XR Chest [...] Ariza M.D. Transcribed by: ELDON Technologist: BARBARA Zuñiga [facility] eGFRon 12-30-2018 GFR/1.73 sq M predicted among blacks MDRD vol rate/area (S/P/Bld) mL/min/{1.73_m2} Normal >=59 [facility] Comment on above: Order Comment: Order added by Discern Expert. Result Comment: eGFR is race adjusted. AA=. Performed By: #### 2 562297, 4061486, 18209647, 7721336, 7760705 #### [facility] [address] [place] [address] GFR/1.73 sq M predicted among non-blacks MDRD vol rate/area (S/P/Bld) mL/min/{1.73_m2} Normal >=59 [facility] Comment on above: Order Comment: Order added by Discern Expert. Result Comment: Plate Sensitizer del kidney disease could be indicated at eGFR's of less than 60 mL/min/1.73m2. Kidney failure is indicated at less than 15 mL/min/1.73m2. Performed By: #### 2 611002, 7466237, 38207420, 8157970, 1586465 #### [facility] [address] [place] [address] No Panel Information [facility] Vital Signs Date Time Vital Sign Value Performing Clinician Facility 09-17-2023 13:00-0500 Body height 170.18 cm Agus Yovany Other [facility] Other 09-17-2023 13:00-0500 Diastolic blood pressure 74 mm[Hg] Agus Pedroza Other [facility] Other 09-17-2023 13:00-0500 SaO2% (BldA) [Mass fraction] 98 % Agus Pedroza Other [facility] Other 09-17-2023 13:00-0500 Systolic blood pressure 113 mm[Hg] Agus Pedroza Other [facility] Other 08-03-2023 11:00-0400 Body temperature 98.6 [degF] DO Christopher Jack Work Phone: [facility] 08-03-2023 11:00-0400 Diastolic blood pressure 79 mm[Hg] DO Christopher Jack Work Phone: [facility] 08-03-2023 11:00-0400 Heart rate 79 /min DO Christopher Gaston Work Phone: [facility] 08-03-2023 11:00-0400 Respiratory rate 14 /min DO Christopher Gaston Work Phone: [facility] 08-03-2023 11:00-0400 SaO2% (BldA) [Mass fraction] 98 % DO Christopher Gaston Work Phone: [facility] 08-03-2023 11:00-0400 Systolic blood pressure 168 mm[Hg] DO Christopher Jack Work Phone: [facility] 08-03-2023 05:54-0400 Inhaled oxygen flow rate 2 L/min DO Christopher Jack Work Phone: [facility] 08-02-2023 21:19-0400 Body height 173 cm DO Christopher Jack Work Phone: [facility] 08-02-2023 21:19-0400 Body mass index (BMI) [Ratio] 28.7 kg/m2 DO Christopher Jack Work Phone: [facility] 08-02-2023 21:19-0400 Body weight 86 kg DO Christopher Jack Work Phone: [facility] 08-02-2023 08:01-0400 Diastolic blood pressure 65 mm[Hg] DO Christopher Gaston Work Phone: [facility] 08-02-2023 08:01-0400 Heart rate 69 /min DO Christopher Jack Work Phone: [facility] 08-02-2023 08:01-0400 Respiratory rate 15 /min DO Christopher Gaston Work Phone: [facility] 08-02-2023 08:01-0400 SaO2% (BldA) [Mass fraction] 97 % DO Christopher Jack Work Phone: [facility] 08-02-2023 08:01-0400 Systolic blood pressure 96 mm[Hg] DO Christopher Jack Work Phone: [facility] 08-02-2023 07:44-0400 Body temperature 94.5 [degF] DO Christopher Gaston Work Phone: [facility] 08-02-2023 04:42-0400 Inhaled oxygen flow rate 99 L/min DO Christopher Gaston Work Phone: [facility] 08-02-2023 04:15-0400 Body height 172.72 cm DO Christopher Jack Work Phone: [facility] 08-02-2023 04:15-0400 Body mass index (BMI) [Ratio] 28.8 kg/m2 DO Christopher Jack Work Phone: [facility] 08-02-2023 04:15-0400 Body weight 86 kg DO Christopher Jack Work Phone: [facility] 08-02-2023 04:15-0400 SaO2% (BldA) [Mass fraction] 95.1 % DO Christopher Gaston Work Phone: [facility] 05-21-2023 13:30-0400 Body height 170.18 cm Agus Pedroza Other [facility] [employer] Other 05-21-2023 13:30-0400 Diastolic blood pressure 100 mm[Hg] Agus Yovany Other [facility] [employer] Other 05-21-2023 13:30-0400 SaO2% (BldA) [Mass fraction] 98 % Agus Yovany Other [facility] [employer] Other 05-21-2023 13:30-0400 Systolic blood pressure 160 mm[Hg] Agus Yovany Other [facility] [employer] Other 04-18-2023 16:35-0400 Body temperature 98.3 [degF] DO Fadi House Work Phone: [facility] 04-18-2023 16:35-0400 Diastolic blood pressure 86 mm[Hg] DO Fadi House Work Phone: [facility] 04-18-2023 16:35-0400 Heart rate 89 /min DO Fadi House Work Phone: [facility] 04-18-2023 16:35-0400 Respiratory rate 16 /min DO Fadi House Work Phone: [facility] 04-18-2023 16:35-0400 SaO2% (BldA) [Mass fraction] 97 % DO Fadi House Work Phone: [facility] 04-18-2023 16:35-0400 Systolic blood pressure 131 mm[Hg] DO Fadi House Work Phone: [facility] 04-18-2023 06:00-0400 Body weight 104.6 kg DO Fadi House Work Phone: [facility] 04-18-2023 04:00-0400 Inhaled oxygen flow rate 2 L/min DO Fadi House Work Phone: [facility] 04-16-2023 11:15-0400 Body height 167.64 cm DO Fadi House Work Phone: [facility] 05-16-2022 14:30-0400 Body height 170.18 cm Tondra Mapus Other [employer] [facility] [employer] Other 05-16-2022 14:30-0400 Diastolic blood pressure 108 mm[Hg] Tondra Mapus Other [employer] Other 05-16-2022 14:30-0400 Respiratory rate 18 /min Tondra Mapus Other [employer] Other 05-16-2022 14:30-0400 SaO2% (BldA) [Mass fraction] 98 % Tondra Mapus Other [employer] Other 05-16-2022 14:30-0400 Systolic blood pressure 155 mm[Hg] Tondra Mapus Other [employer] Other 04-22-2022 00:30-0400 Diastolic blood pressure 64 mm[Hg] DO Fadi House Work Phone: [facility] 04-22-2022 00:30-0400 Heart rate 82 /min DO Fadi House Work Phone: [facility] 04-22-2022 00:30-0400 Respiratory rate 18 /min DO Fadi House Work Phone: [facility] 04-22-2022 00:30-0400 SaO2% (BldA) [Mass fraction] 100 % DO Fadi House Work Phone: [facility] 04-22-2022 00:30-0400 Systolic blood pressure 129 mm[Hg] DO Fadi House Work Phone: [facility] 04-21-2022 21:09-0400 Body height 167.64 cm DO Fadi House Work Phone: [facility] 04-21-2022 21:09-0400 Body mass index (BMI) [Ratio] 37.1 kg/m2 DO Fadi House Work Phone: [facility] 04-21-2022 21:09-0400 Body temperature 97.8 [degF] DO Fadi House Work Phone: [facility] 04-21-2022 21:09-0400 Body weight 104.32 kg DO Fadi House Work Phone: [facility] 03-07-2022 11:50-0400 Diastolic blood pressure 80 mm[Hg] Fadi P House Work Phone: [facility] 250 DO Work Phone: 03-07-2022 11:50-0400 Heart rate 84 /min Fadi P House Work Phone: [facility] 250 DO Work Phone: 03-07-2022 11:50-0400 Systolic blood pressure 100 mm[Hg] Fadi P House Work Phone: [facility] DO Work Phone: 02-14-2022 14:41-0400 Body height 167.64 cm Fadi P House Work Phone: [facility] DO Work Phone: 02-14-2022 14:41-0400 Body mass index (BMI) [Ratio] 36.64 kg/m2 Fadi P House Work Phone: [facility] DO Work Phone: 02-14-2022 14:41-0400 Body surface area Derived from formula 2.11 m2 Fadi P House Work Phone: [facility] DO Work Phone: 02-14-2022 14:41-0400 Body weight 102.97 kg Fadi P House Work Phone: [facility] DO Work Phone: 02-14-2022 14:41-0400 Diastolic blood pressure 90 mm[Hg] Fadi P House Work Phone: [facility] DO Work Phone: 02-14-2022 14:41-0400 Heart rate 84 /min Fadi P House Work Phone: [facility] 250 DO Work Phone: 02-14-2022 14:41-0400 Systolic blood pressure 160 mm[Hg] Fadi P House Work Phone: [facility] DO Work Phone: 02-14-2022 14:41-0400 8 1 Fadi P House Work Phone: [facility] 250 DO Work Phone: Comment on above: PHQ-9 TS 02-06-2022 12:00-0400 Body height 170.18 cm Tondra Mapus Other [employer] Other 02-06-2022 12:00-0400 Body mass index (BMI) [Ratio] 36.33 kg/m2 Tondra Mapus Other [employer] Other 02-06-2022 12:00-0400 Body weight 105.24 kg Tondra Mapus Other [employer] Other 01-22-2022 11:15-0400 Body height 170.18 cm Tondra Mapus Other [employer] Other 01-22-2022 11:15-0400 Body mass index (BMI) [Ratio] 36.65 kg/m2 Tondra Mapus Other [employer] Other 01-22-2022 11:15-0400 Body weight 106.14 kg Tondra Mapus Other [employer] Other 01-22-2022 11:15-0400 Diastolic blood pressure 84 mm[Hg] Tondra Mapus Other [employer] Other 01-22-2022 11:15-0400 Respiratory rate 20 /min Tondra Mapus Other [employer] Other 01-22-2022 11:15-0400 SaO2% (BldA) [Mass fraction] 99 % Tondra Mapus Other [employer] Other 01-22-2022 11:15-0400 Systolic blood pressure 136 mm[Hg] Tondra Mapus Other [employer] Other 01-19-2022 15:45-0400 Body height 170.18 cm Fadi P House Work Phone: [employer] [facility] [employer] 250 DO Work Phone: 01-19-2022 15:45-0400 Diastolic blood pressure 106 mm[Hg] Fadi P House Work Phone: [facility] [employer] 250 DO Work Phone: 01-19-2022 15:45-0400 Heart rate 76 /min Fadi P House Work Phone: [facility] DO Work Phone: 01-19-2022 15:45-0400 Systolic blood pressure 184 mm[Hg] Fadi P House Work Phone: [facility] 250 DO Work Phone: 01-19-2022 15:45-0400 12 1 Fadi P House Work Phone: [facility] 250 DO Work Phone: Comment on above: PHQ-9 TS 01-12-2022 11:50-0400 Body temperature 97.5 [degF] DO Fadi House Work Phone: [facility] 01-12-2022 11:50-0400 Diastolic blood pressure 91 mm[Hg] DO Fadi House Work Phone: [facility] 01-12-2022 11:50-0400 Heart rate 82 /min DO Fadi House Work Phone: [facility] 01-12-2022 11:50-0400 Respiratory rate 20 /min DO Fadi House Work Phone: [facility] 01-12-2022 11:50-0400 SaO2% (BldA) [Mass fraction] 98 % DO Fadi House Work Phone: [facility] 01-12-2022 11:50-0400 Systolic blood pressure 151 mm[Hg] DO Fadi House Work Phone: [facility] 01-12-2022 05:51-0400 Body weight 104.8 kg DO Fadi House Work Phone: [facility] 01-11-2022 15:11-0400 Body height 167.64 cm DO Fadi House Work Phone: [facility] 01-11-2022 11:13-0400 Inhaled oxygen flow rate 2.5 L/min DO Fadi House Work Phone: [facility] 01-10-2022 22:17-0400 Body mass index (BMI) [Ratio] 37.1 kg/m2 DO Fadi Tenorio Work Phone: [facility] 01-10-2022 20:30-0400 Diastolic blood pressure 72 mm[Hg] DO Fadi Tenorio Work Phone: [facility] 01-10-2022 20:30-0400 Heart rate 90 /min DO Fadi Tenorio Work Phone: [facility] 01-10-2022 20:30-0400 Respiratory rate 18 /min DO Fadi Tenorio Work Phone: [facility] 01-10-2022 20:30-0400 SaO2% (BldA) [Mass fraction] 96 % DO Fadi Tenorio Work Phone: [facility] 01-10-2022 20:30-0400 Systolic blood pressure 151 mm[Hg] DO Fadi Tenorio Work Phone: [facility] 01-10-2022 13:34-0400 Body height 167.64 cm DO Fadi Tenorio Work Phone: [facility] 01-10-2022 13:34-0400 Body mass index (BMI) [Ratio] 37.1 kg/m2 DO Fadi Tenorio Work Phone: [facility] 01-10-2022 13:34-0400 Body temperature 97.8 [degF] DO Fadi Tenorio Work Phone: [facility] 01-10-2022 13:34-0400 Body weight 104.32 kg DO Fadi Tenorio Work Phone: [facility] 01-02-2022 14:30-0400 Body height 170.18 cm Agus Pedroza Other [employer] Other 01-02-2022 14:30-0400 Diastolic blood pressure 88 mm[Hg] Agus Pedroza Other [employer] Other 01-02-2022 14:30-0400 SaO2% (BldA) [Mass fraction] 99 % Agus Pedroza Other [employer] Other 01-02-2022 14:30-0400 Systolic blood pressure 120 mm[Hg] Agus Pedroza Other [employer] Other 08-29-2021 15:30-0500 Body height 170.18 cm Nury Martin Other [employer] Other 07-10-2021 14:00-0400 Body height 170.18 cm Same Jimmyjohnnyninomaria teresa Other [employer] Other 07-10-2021 14:00-0400 Diastolic blood pressure 80 mm[Hg] Same Jimmykalla Other [employer] Other 07-10-2021 14:00-0400 SaO2% (BldA) [Mass fraction] 99 % Same Jimmyjohnnylla Other [employer] Other 07-10-2021 14:00-0400 Systolic blood pressure 130 mm[Hg] Same Rijermainekalla Other [employer] Other 12-29-2020 08:20-0400 Pulse (Heart Rate) 85 /min [employer] Phone: 12-29-2020 08:10-0400 Body Temperature 98.1 [degF] [employer] Phone: 12-29-2020 08:10-0400 BP Diastolic 79 mm[Hg] [employer] Phone: 12-29-2020 08:10-0400 BP Systolic 155 mm[Hg] [employer] Work Phone: 12-29-2020 08:10-0400 Pulse Oximetry 100 % [employer] Work Phone: 12-29-2020 08:10-0400 Respiratory Rate 18 /min [employer] Work Phone: 12-28-2020 11:45-0400 BMI (Body Mass Index) 47.45 kg/m2 [employer] Work Phone: 12-28-2020 11:45-0400 Body weight 133.36 kg [employer] Work Phone: 12-28-2020 11:45-0400 Height 167.6 cm [employer] Work Phone: Encounters Encounter Date Encounter Type Care Provider Facility Start: 11-06-2023 ambulatory UNKNOWN PROVIDER Facili ty:[facility] Start: 09-17-2023 End: 09-17-2023 ambulatory Agus Pedroza Other [employer] Other Start: 09-17-2023 Office outpatient vi sit 15 minutes Agus Pedroza [facility] Start: 09-11-2023 End: 09-12-2023 ambulatory UNKNOWN PROVIDER [facility] Start: 09-11-2023 End: 09-11-2023 Office outpatient visit 15 minutes Demetri Frank MD Work Phone: 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, unspecified proliferative retinopathy type (HCC) (Primary Dx) Start: 08-28-2023 End: 08-29-2023 ambulatory FADI TENORIO Facility:[facility] Start: 08-02-2023 End: 08-03-2023 ambulatory Radha Bell Facility:[facility] Start: 08-02-2023 End: 08-03-2023 Evaluation and management of inpatient DO Christopher Santiago Work Phone: [facility] In[facility] Work Phone: Start: 08-02-2023 End: 08-03-2023 observation encounter DO Christopher Gaston Work Phone: [facility] Work Phone: Start: 08-02-2023 Non-patient / Non-visit DO Ramos on Gaston Work Phone: [facility] Start: 07-25-2023 End: 07-26-2023 ambulatory FADI TENORIO Facility:[facility] Start: 07-24-2023 End: 07-24-2023 ambulatory UNKNOWN PROVIDER Facility:[facility] Start: 07-24-2023 End: 07-24-2023 Office outpatient visit 15 minutes Demetri Frank MD Work Phone: 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, unspecified proliferative retinopathy type (HCC) (Primary Dx) Start: 06-20-2023 End: 06-20-2023 ambulatory Tondra Mapus Other [employer] Other Start: 06-20-2023 Telephone encounter Tondra Mapus [facility] Start: 05-21-2023 End: 05-21-2023 ambulatory Agus Pedroza Other [employer] Other Start: 05-21-2023 Office outpatient ne w 30 minutes Agus Pedroza [facility] Start: 05-07-2023 End: 05-07-2023 ambulatory Tondra Mapus Other [employer] Other Start: 05-07-2023 Telephone encounter Tondra Das [facility] Start: 04-16-2023 End: 04-18-2023 Evaluation and management of inpatient Fadi Tenorio Facility:[facility] Start: 04-15-2023 End: 04-18-2023 Evaluation and management of inpatient DO Fadi Tenorio Work Phone: [facility] [place] [facility] Work Phone: Start: 04-11-2023 End: 04-11-2023 ambulatory Eliud Eve Other [employer] Other Start: 04-11-2023 Telephone encounter Eliud Eve [facility] Start: 04-10-2023 End: 04-10-2023 ambulatory Eliud Eve Other [employer] Other Start: 04-10-2023 Telephone encounter Eliud Eve [facility] Start: 03-03-2023 End: 03-09-2023 Evaluation and management of inpatient DR MURRAY YEBOAH Facility:[facility] Start: 02-04-2023 Rx Renewal Fadi P Hous e Work Phone: [facility] [address] DO Work Phone: Start: 01-31-2023 End: 01-31-2023 ambulatory FADI TENORIO Facility:[facility] Start: 01-21-2023 End: 01-21-2023 ambulatory Tondra Shayneus Other [employer] Other Start: 01-21-2023 Telephone encounter Tondra Shayneus [facility] Start: 01-15-2023 End: 01-15-2023 ambulatory Fadi Tenorio [place] [employer] Other Start: 01-15-2023 Telephone encounter Tondra Mapus [facility] Start: 01-11-2023 End: 01-11-2023 ambulatory Tondra Mapus Other [employer] Other Start: 01-11-2023 Telephone encounter Tondra Mapus [facility] Start: 01-01-2023 End: 01-01-2023 ambulatory UNKNOWN PROVIDER [employer] Other Start: 01-01-2023 Telephone encounter Tondra Mapus [facility] Start: 12-19-2022 End: 12-19-2022 ambulatory UNKNOWN PROVIDER Facility:[facility] Start: 12-19-2022 End: 12-19-2022 Office outpatient visit 15 minutes Demetri Frank MD Work Phone: 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, unspecified proliferative retinopathy type (HCC) (Primary Dx) Start: 10-03-2022 End: 10-04-2022 Evaluation and management of inpatient DR FADI TENORIO Facility: Start: 10-01-2022 End: 10-01-2022 ambulatory Tondra Mapus Other [employer] Other Start: 10-01-2022 Telephone encounter [facility] Start: 09-03-2022 End: 09-03-2022 ambulatory VJ HADDAD II Facility:[facility] Start: 09-03-2022 Encounter for genera l adult medical examination without abnormal findings VJ HADDAD II [facility] Start: 09-03-2022 End: 09-03-2022 Patient encounter procedure Vj Haddad OD Work Phone: Optometry Comment on above: Disability examinati on (Primary Dx); 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, unspecified whether buttermaker continuous churn insulin use (HCC); Type 2 diabetes mellitus with proliferative diabetic retinopathy of left eye without macular edema, unspecified whether buttermaker continuous churn insulin use (HCC); Myopia, bilateral; Regular astigmatism, bilateral; Presbyopia Start: 08-28-2022 End: 08-28-2022 ambulatory Tondra Mapus Other [employer] Other Start: 08-28-2022 Telephone encounter Tondra Mapus [facility] Start: 08-27-2022 End: 08-27-2022 ambulatory Tondra Mapus Other [employer] Other Start: 08-27-2022 Telephone encounter Tondra Mapus [facility] Start: 08-16-2022 End: 08-16-2022 ambulatory Tondra Mapus Other [employer] Other Start: 08-16-2022 Telephone encounter Tondra Mapus [facility] Start: 07-31-2022 End: 07-31-[address] FADI TENORIO Facility: Start: 05-16-2022 (DM) Diabetes Tondra Mapus [facility] Start: 05-16-2022 End: 05-16-2022 ambulatory Tondra Mapus Other [employer] Other Start: 04-21-2022 End: 04-22-2022 Emergency department patient visit DO Fadi Tenorio Work Phone: [facility] Start: 04-18-2022 End: 04-18-2022 ambulatory Tondra Mapus Other [employer] Other Start: 04-18-2022 Telephone encounter Tondra Mapus [facility] Start: 03-21-2022 End: 03-21-2022 Office outpatient visit 15 minutes Demetri Frank MD Work Phone: 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, unspecified proliferative retinopathy type (HCC) (Primary Dx) Start: 03-13-2022 End: 03-13-2022 ambulatory Tondra Mapus Other [employer] Other Start: 03-13-2022 Telephone encounter Tondra Mapus [facility] Start: 03-08-2022 Registered Recurring DO Carlos A ahmadi House [facility] Start: 03-08-2022 (RD) Senior Insight Manager Jazzmine Dukes [facility] Start: 03-08-2022 End: 03-08-2022 ambulatory Jazzmine Dukes Other [employer] Other Start: 03-07-2022 End: 03-07-2022 ambulatory Tondra Mapus Other [employer] Other Start: 03-07-2022 Telephone encounter Tondra Mapus [facility] Start: 03-07-2022 Office outpatient vi sit 15 minutes Fadi Neves House Work Phone: [place] [id number] DO Work Phone: Start: 02-19-2022 End: 02-19-2022 ambulatory Tondra Mapus Other [employer] Other Start: 02-19-2022 Telephone encounter Tondra Mapus [facility] Start: 02-14-2022 End: 02-14-2022 ambulatory Tondra Mapus Other [employer] Other Start: 02-14-2022 Telephone encounter Tondra Mapus [facility] Start: 02-12-2022 Telephone encounter Agustin arazte MD Work Phone: [facility] Comment on above: Other sympt/complt o f eye Start: 02-06-2022 End: 02-06-2022 ambulatory Tondra Mapus Other [employer] Other Start: 02-06-2022 Nursing evaluation o f patient and report Tondra Mapus [facility] Start: 02-06-2022 Registered Recurring DO Carlos A s House Work Phone: [facility] Start: 01-26-2022 End: 01-26-2022 ambulatory Tondra Mapus Other [employer] Other Start: 01-26-2022 Nursing evaluation o f patient and report Tondra Mapus [facility] Start: 01-22-2022 (DM) Diabetes Tondra Mapus [facility] Start: 01-22-2022 End: 01-22-2022 ambulatory Tondra Mapus Other [employer] Other Start: 01-19-2022 Tobacco use cessatio n intermediate 3-10 minutes Fadi P House Work Phone: [facility] [address] DO Work Phone: Start: 01-11-2022 End: 01-12-2022 Evaluation and management of inpatient DO Fadi House Work Phone: [facility] [place] [facility] Start: 01-10-2022 End: 01-12-2022 Evaluation and management of inpatient DO Fadi House Work Phone: [facility] [place] [facility] Start: 01-02-2022 End: 01-02-2022 ambulatory Agus Pedroza Other [employer] Other Start: 01-02-2022 Office outpatient vi sit 10 minutes Agus Pedroza [facility] Start: 08-29-2021 End: 08-29-2021 ambulatory Nury Murrayy Other [employer] Other Start: 08-29-2021 Office outpatient vi sit 15 minutes Nury Rossyntsarah beth [facility] Start: 08-09-2021 End: 08-09-2021 ambulatory Mika Das Other [employer] Other Start: 08-09-2021 Telephone encounter Mika [facility] Start: 07-21-2021 End: 07-21-2021 ambulatory Mika Das Other [facility] Other Start: 07-21-2021 Telephone encounter Mika Watson [facility] Start: 07-20-2021 [facility] Start: 07-10-2021 Office outpatient vi sit [address] [facility] Start: 12-28-2020 End: 12-29-2020 Evaluation and management of inpatient SR FADI Edinson COBY [facility] Start: 12-28-2020 End: 12-28-2020 Patient encounter procedure [facility] Start: 12-28-2020 End: 12-29-2020 Evaluation and management of inpatient Kole Koehler Work Phone: [facility] Telemetry Comment on above: Peripheral vascular occlusive disease (HCC) (Primary Dx); Renal insufficiency Start: 12-28-2020 End: 12-28-2020 Subsequent hospital visit by physician Virginia Pittman Work Phone: Cardiac Cath Services Comment on above: Arrived Start: 12-20-2020 End: 12-23-2020 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) Start: 01-08-2019 End: 01-08-2019 Patient encounter procedure Fatoumata HCirilo Frankchidi Facility[place] Start: 12-30-2018 End: 12-31-2018 Patient encounter procedure Fatoumata YbarraCirilo Frankronadaiana Facility:[facility] Procedures Date Procedure Procedure Detail Performing Clinician Start: 09-11-2023 Computerized ophthal yomi imaging retina Maddie Lau MD Work Phone: Start: 09-11-2023 Intravitreal njx pharmacologic agt spx Demetri Frank MD Work Phone: Start: 07-24-2023 Computerized ophthal yomi imaging retina Demetri Frank MD Work Phone: Start: 06-26-2023 Computerized ophthal yomi imaging retina Demetri rFank MD Work Phone: Start: 06-26-2023 Intravitreal njx pharmacologic agt spx Demetri Frank MD Work Phone: Start: 04-16-2023 CT of abdomen and pe lvis without contrast DO [facility] Work Phone: Start: 01-08-2023 Computerized ophthal yomi imaging retina Maddie Lau MD Work Phone: Start: 01-01-2023 End: 01-08-2023 [facility] medical xm&eval comprhnsv estab pt 1/> Diabetes mellitus with insulin therapy (HCC) [employer] Comment on above: Diabetes mellitus wi th [...] End: 09-03-2022 Computerized ophthalmic imaging retina Vj Haddad OD Work Phone: Start: 03-21-2022 Intravitreal njx pharmacologic agt spx Demetri Frank MD Work Phone: Start: 03-21-2022 Computerized ophthal yomi imaging retina Demetri Frank MD Work Phone: Start: 01-11-2022 CL LHC & COR Angio DO [facility] Work Phone: Start: 01-10-2022 Duplex scan of lower limb veins DO [facility] Work Phone: Start: 01-10-2022 CT of head without contrast DO [facility] Work Phone: Start: 01-10-2022 SARS Antigen (LFIA) DO [facility] Work Phone: Start: 01-10-2022 Plain chest X-ray DO [facility] Work Phone: Start: 12-29-2020 Gluc bld gluc mntr d ev cleared fda spec home use Unknown Provider Result Start: 12-29-2020 WOUND OSTOMY EVAL AND TREAT [facility] Work Phone: Start: 12-29-2020 Gluc bld gluc mntr d ev cleared fda spec home use Unknown Provider Result Start: 12-29-2020 Blood count complete auto&auto difrntl wbc [facility] Work Phone: Start: 12-28-2020 Gluc bld gluc mntr d ev cleared fda spec home use Unknown Provider Result Start: 12-28-2020 Antibody screen Kole hernández Start: 12-28-2020 COVID-19, RAPID Cece Chauhan Work Phone: Start: 12-28-2020 Prothrombin time Cece Chauhan Work Phone: Start: 12-28-2020 Thromboplastin time partial plasma/whole blood Cece Chauhan Work Phone: Start: 12-28-2020 Basic metabolic pane l calcium total Cece Chauhan Work Phone: Start: 12-28-2020 Blood count complete auto&auto difrntl wbc Cece Chauhan Work Phone: Start: 12-28-2020 Blood typing serologic abo Cece Chauhan Work Phone: Start: 12-20-2020 Cta abdl aorta&bi il iofem w/contrast&postp Lleowell Phuc Work Phone: Start: 12-20-2020 POCT VENOUS Unknown Pr ovider Result Start: 01-13-2019 Anesthesia consultation Fatoumata Tirado Start: 01-08-2019 Anesthesia consultation Fatoumata Tirado Start: 10-14-2011 Total colonoscopy Charl es P [employer] Work Phone: Amputation of lower limb Neeta rles [employer] Work Phone: Placement of stent i n coronary artery Fadi P [employer] Work Phone: Surgical procedure Fadi P [employer] Work Phone: Plan of Treatment Date Care Activity Detail Author Start: 04-09-2026 DTaP/Tdap/Td vaccine (2 - Td) DTaP/Tdap/Td vaccine (2 - Td) [facility] [employer] Work Phone: Start: 04-09-2026 Tetanus vaccination Met [facility] Start: 12-14-2024 LIPID SCREEN LIPID SCREEN [facility] Start: 11-06-2024 Glaucoma screening Eye Exam [employer] [facility] Start: 09-11-2024 Glaucoma screening Eye Exam [facility] Start: 08-03-2024 Creatinine measurement Basic Metabol ic Panel [facility] Start: 08-02-2024 Lipid panel Lipid Profile [facility] Start: 07-24-2024 Diabetic retinal eye exam Eye Exam [facility] Start: 06-06-2024 Creatinine measurement Basic Metabol ic Panel [facility] Start: 05-27-2024 Lipid panel Lipid Profile [facility] Start: 02-21-2024 Diabetic retinal eye exam Eye Exam [facility] Start: 02-01-2024 Hemoglobin A1c measurement Hemoglobin A1C [facility] Start: 12-20-2023 Diabetic retinal eye exam Eye Exam [facility] Start: 11-29-2023 Hemoglobin A1c measurement Hemoglobin A1C [facility] Start: 11-06-2023 End: 11-06-2023 Patient encounter procedure 11/06/2023 3:00 PM EST [facility] [address] [place] [address] Demetri Frank MD [address] [place] [address] Invertebrate Paleontologist, Eye [facility] Start: 10-17-2023 Diabetic retinal eye exam Eye Exam [facility] Start: 09-11-2023 End: 09-11-2023 Patient encounter procedure 09/11/2023 3:00 PM EST Office Visit [facility] [address] [place] [address] Demetri Frank MD [address] [place] [address] Invertebrate Paleontologist, Eye [facility] Start: 08-06-2023 Basic metabolic 2000 panel - Serum or Plasma Basic Metabolic Panel [facility] Start: 08-03-2023 Patient status observation [facility] Start: 08-03-2023 Patient discharge [facility] Start: 08-02-2023 Bacteria identified in Blood by Culture Blood Culture [facility] Start: 08-02-2023 Microbial culture Blood Culture [facility] Start: 08-02-[address] [facility] Start: 08-02-2023 Hospital admission [facility] Start: 08-02-2023 [facility] Start: 08-02-2023 [facility] Start: 08-02-2023 EKG [address] [facility] Start: 08-02-2023 Administrative procedure [facility] Start: 06-14-2023 Influenza vaccination Influenza Vacc ine (#1) [facility] Start: 04-18-2023 [facility] Start: 04-18-2023 [facility] Start: 04-16-2023 Referral to medical specialist [facility] Start: 04-16-2023 Hospital admission [facility] Start: 04-15-2023 Sleep disorder assessment [facility] Start: 04-03-2023 Hemoglobin A1c measurement Hemoglobin A1C [facility] Start: 03-21-2023 Diabetic retinal eye exam Eye Exam [facility] Start: 02-20-2023 End: 02-20-2023 Patient encounter procedure 02/20/2023 Office Visit Ophthalmology Demetri Frank MD [address] [place] [address] Invertebrate Paleontologist, [facility] Start: 01-11-2023 Lipid panel Lipid Profile [facility] Start: 10-20-2022 Diabetic retinal eye exam [facility] Start: 07-28-2022 Basic metabolic 2000 panel - Serum or Plasma Basic Metabolic Panel [facility] Start: 07-14-2022 Influenza vaccination Influenza Vacc ine (#1) [facility] Start: 07-13-2022 Hemoglobin A1c measurement Hemoglobin A1C [facility] Start: 06-14-2022 Influenza vaccination INFLUENZA (#1) [facility] Start: 05-02-2022 End: 05-02-2022 Patient encounter procedure 05/02/2022 Office Visit Ophthalmology Demetri Frank MD [address] [place] [address] Invertebrate Paleontologist, [facility] Start: 04-21-2022 Plain chest X-ray XR chest 2V* [facility] Start: 04-18-2022 FUV, Provider: Aicha Terrazas, Status: Pen, Time: 2:30 PM FUV, Provider: Aicha Terrazas, Status: Pen, Time: 2:30 PM -[facility] 250 DO Work Phone: Start: 03-21-2022 End: 03-21-2022 Patient encounter procedure 03/21/2022 Office Visit Ophthalmology Demetri Frank MD [address] [place] [address] [facility] Start: 02-12-2022 FUV, Provider: Aicha Terrazas, Status: Pen, Time: 1:00 PM FUV, Provider: Aicha Terrazas, Status: Pen, Time: 1:00 PM [facility] 250 DO Work Phone: Start: 01-20-2022 Hemoglobin A1c measurement Hemoglobin A1C [facility] Start: 01-10-2022 Duplex scan of lower limb veins US venous duplex LE BI [facility] Start: 01-10-2022 Fluoroscopy of Left Heart using Low Osmolar Contrast Fluoroscopy of Left Heart using Low Osmolar Contrast [facility] Start: 01-10-2022 Fluoroscopy of Multi ple Coronary Arteries using Low Osmolar Contrast Fluoroscopy of Multiple Coronary Arteries using Low Osmolar Contrast [facility] Start: 01-10-2022 Measurement of Cardi ac Sampling and Pressure, Left Heart, Percutaneous Approach Measurement of Cardiac Sampling and Pressure, Left Heart, Percutaneous Approach [facility] Start: 12-29-2021 Creatinine measurement Creatinine mo [facility] [employer] Work Phone: Start: 12-29-2021 Potassium monitoring Potassium monit [facility] [employer] Phone: Start: 10-14-2021 DEPRESSION ASSESSMENT DEPRESSION ASS ESSMENT [facility] Start: 2021 Measurement of occul t blood in single stool specimen FIT [facility] Start: 2021 Screening for malign ant neoplasm of colon CRC Screening [facility] Start: 2021 Shingles (RZV) Vacci ne (1 of 2) Shingles (RZV) Vaccine (1 of 2) [facility] Start: 2021 SHINGRIX VACCINE (1 of 2) SHINGRIX VACCINE (1 of 2) [facility] Start: 12-28-2020 End: 12-28-2020 Appointment 12/28/2020 Appointment IP Unit [facility] Start: 12-14-2020 Lipid panel Lipid Profile [facility] Start: 2016 COLOGUARD (FIT-DNA) COLOGUARD (FIT-D NA) [facility] Start: 2016 Colonoscopy COLONOSCOPY [facility] Start: 2016 COLORECTAL CANCER SCREENING COLORECTAL CANCER SCREENING [facility] Start: [address] COLONOGRAPHY [facility] Start: 2016 DIABETES SCREEN DIABETES SCREEN [facility] Start: 2016 FECAL OCCULT BLOOD FECAL OCCULT BLOO D [facility] Start: 2016 Screening for malign ant neoplasm of colon [facility] Start: 2016 SIGMOIDOSCOPY SIGMOIDOSCOPY [facility] Start: 2011 Diabetes screen Diabetes screen [facility] Work Phone: Start: 2011 Lipid panel Lipid screen [facility] Work Phone: Start: 1990 Hepatitis B vaccination Hepati tis B (HBV) Vaccine (1 of 3 - Risk 3-dose series) [facility] Start: 1990 Urine microalbumin profile DTAP,TDAP,TD (1 - Tdap) [facility] Start: 1989 Hepatitis C screening Hepatitis C An tibody [facility] Start: 1989 HEPATITIS C SCREENING HEPATITIS C SC REENING [facility] Start: 1989 HIV SCREENING HIV SCREENING [facility] Start: 1986 HIV screening [facility] Start: 1981 Lipid panel Lipid screen [facility] Work Phone: Start: 1977 PNEUMOCOCCAL (1 - PCV) PNEUMOCOCCAL (1 - PCV) [facility] Start: 1977 Pneumococcal vaccination Pneum ococcal Vaccine(s) (1 - PCV) [facility] Start: 1976 COVID-19 Vaccine (#1) COVID-19 Vacci ne (#1) [facility] Start: 1976 COVID-19 Vaccine (1) COVID-19 Vaccin e (1) [facility] Start: 01-09-1972 COVID-19 VACCINE (#1) COVID-19 VACCI NE (#1) [facility] Start: 1971 Urine screening for protein Microalbumin [facility] Start: 1971 Diabetic foot examination Foot Exam [facility] Start: 1971 HEPATITIS B (1 of 3 - 3-dose series) HEPATITIS B (1 of 3 - 3-dose series) [facility] Start: 1971 Hepatitis B vaccination Hepati tis B (HBV) Vaccine (1 of 3 - 3-dose series) [facility] Start: 1971 Hepatitis C screening Hepatitis C sc reen [employer] [address] [employer] Phone: Start: 1971 Screening for malign ant neoplasm of colon Colonoscopy [facility] Bacteria identified in Unspecified specimen by Anaerobe+Aerobe culture [facility] End: 12-28-2020 Basic metabolic 2000 panel Basic Metabolic Panel Lab Routine One Time for 1 Occurrences starting 12/28/2020 until 12/28/[address] [employer] Phone: Comment on above: One Time for 1 Occur rences starting 12/28/2020 until 12/28/2020 End: 12-28-2020 Catheterization and angiography procedure details panel Diagnostic Cardiac Production Supervisor Trainee Procedure Cardiac Cath Routine One Time for 1 Occurrences starting 12/28/2020 until 12/28/[address] [employer] Phone: Comment on above: One Time for 1 Occur rences starting 12/28/2020 until 12/28/2020 End: 12-28-2020 CBC CBC Lab Routine One Time for 1 Occurrences starting 12/28/2020 until 12/28/[address] [employer] Phone: Comment on above: One Time for 1 Occur rences starting 12/28/2020 until 12/28/2020 Glucose measurement estimated from glycated hemoglobin [facility] Work Phone: Hemoglobin A1c/Hemoglobin.total in Blood [facility] Work Phone: IgA [Mass/volume] in Serum or Plasma [facility] IgG [Mass/volume] in Serum or Plasma [facility] IgM [Mass/volume] in Serum or Plasma [facility] Immunofixation for Urine Fir [facility] [place] light chains.f ree [Mass/volume] in Serum [facility] [place] light chains.free/Lambda light chains.free [Mass Ratio] in Serum [facility] Lambda light chains. free [Mass/volume] in Serum or Plasma [facility] OCT, RETINA - OU - B OTH EYES OCT, RETINA - OU - BOTH EYES Ophthalmology Routine Diabetes mellitus with insulin therapy (HCC) 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 to underlying condition (HCC) 01/01/2023 5:57 PM EDT [employer] Work Phone: Oxygen therapy [[facility] Data Set] Initiate Oxygen Therapy Protocol Respiratory Care Routine Daily until discontinued starting 12/28/2020 [employer] Work Phone: Comment on above: Daily until disconti nued starting 12/28/2020 Patient Education [facility] Work Phone: Patient referral [facility] Work Phone: End: 12-20-2020 POCT Creatinine POCT Creatinine Point of Care Testing Routine One Time for 1 Occurrences starting 12/20/2020 until 12/20/[address] [employer] Phone: Comment on above: One Time for 1 Occur rences starting 12/20/2020 until 12/20/2020 POCT Glucose [facility] Work Phone: Comment on above: As Needed until disc ontinued starting 12/28/2020 4X Daily (AC & HS) u ntil discontinued starting 12/28/2020 Serum immunofixation [facility] Thyrotropin [Units/volume] in Serum or Plasma [facility] Work Phone: Troponin I.cardiac [Mass/volume] in Serum or Plasma by High sensitivity method [facility] Work Phone: End: 12-28-2020 TYPE AND SCREEN TYPE AND SCREEN Blood Bank Routine One Time for 1 Occurrences starting 12/28/2020 until 12/28/[address] [employer] Phone: Comment on above: One Time for 1 Occur rences starting 12/28/2020 until 12/28/2020 Immunizations Immunization Date Immunization Notes Care Provider [facility] 08-02-2023 Hemoglobin A1C Demetri garland MD Work Phone: [facility] 05-29-2023 Hemoglobin A1C Demetri garland MD Work Phone: [facility] 10-03-2022 Hemoglobin A1C Demetri garland MD Work Phone: [facility] 05-16-2022 Hemoglobin A1C Demetri garland MD Work Phone: [facility] 01-10-2022 Hemoglobin A1C Demetri garland MD Work Phone: [facility] 07-22-2021 Hemoglobin A1C Agustin Hampton MD Work Phone: [facility] 10-14-2020 influenza, injectabl e, quadrivalent, contains preservative Agustin Hampton MD Work Phone: [facility] 10-14-2020 influenza virus vaccine, unspecified formulation Demetri Frank MD Work Phone: [facility] 10-01-2020 influenza, injectabl e, quadrivalent, preservative free Fadi Tenorio Work Phone: [place] [address] DO Work Phone: 12-23-2019 Influenza, injectabl e, Madin [place] Canine Kidney, preservative free, quadrivalent DO Fadi Morrice Work Phone: [facility] 04-09-2016 tetanus toxoid, reduced diphtheria toxoid, and acellular pertussis vaccine, adsorbed Fadi Edinson Morrice Work Phone: [facility] Payers Date Payer Category Payer Medicare [id number] 2023 Medicare [id number] 2022 Unknown 2021 Self-pay [id number] 2020 Medicaid [id number] 2018 Private Health Insurance [id number] 1971 Unknown [id number] 2.16.84 0.1.224871.3.579.2.727 1971 Unknown [id number] 2.16.84 0.1.066329.3.579.2.727 1971 Unknown [id number] 2.16.8 40.1.775187.3.579.2.182 1971 Unknown [id number] 2.16.8 40.1.796073.3.579.2.182 1971 Unknown [id number] 2.16.8 40.1.855722.3.579.2.182 1971 Unknown [id number] 2.16.84 0.1.343421.3.579.2.593 1971 Unknown [id number] 2.16.84 0.1.717024.3.579.2.593 1971 Unknown [id number] 2.16.84 0.1.034500.3.579.2.593 1971 Unknown [id number] 2.16.84 0.1.014449.3.579.2.593 1971 Unknown [id number] 2.16.8 40.1.587339.3.579.2.718 1971 Unknown [id number] 2.16.8 40.1.134951.3.579.2.718 1971 Unknown [id number] 2.16. 840.1.596155.3.579.2.732 1971 Unknown [id number] 2.16. 840.1.720764.3.579.2.732 1971 Unknown [id number] 2.16. 840.1.700691.3.579.2.732 1971 Unknown [id number] 2.16. 840.1.245408.3.579.2.732 1971 Unknown [id number] 2.16. 840.1.828420.3.579.2.732 1971 Unknown [id number] 2.16. 840.1.787360.3.579.2.732 1959 Private Health Insurance [id number] 1.2.840.712331.1.13.239.2.7.3.849301.315 1959 Unknown [id number] Unknown [id number] Unknown [id number] 2.16. 840.1.779924.3.579.2.1149 Unknown [id number] 2.16. 840.1.988716.3.579.2.1149 Unknown [id number] 2.16. 840.1.850047.3.579.2.1149 Unknown [id number] 2.16. 840.1.808951.3.579.2.1149 Unknown [id number] 2.16.8 40.1.337104.3.579.2.531 Unknown [id number] 2.16.8 40.1.296113.3.579.2.531 Social History Date Type Detail Facility Start: 12-20-2020 Tobacco smoking status [facility] Unknown if ever smoked [facility] Start: 1970 Sex Assigned At Not on file M [employer] Phone: Start: 08-24-2022 End: 09-03-2022 Exposure to SARS-CoV-2 (event) Not sure [employer] [address] [employer] Phone: Start: 12-28-2020 End: 04-21-2022 Tobacco smoking status NHIS Former smoker [facility] Start: 12-28-2020 End: 09-03-2022 Tobacco use and exposure Never used [employer] [address] [employer] Phone: Start: 12-28-2020 End: 09-03-2022 Alcohol intake Ex-drinker (finding) [employer] Work Phone: Start: 01-10-2022 End: 04-17-2023 Tobacco smoking status NHIS Smoker (finding) [facility] Start: 1970 Sex Assigned At Male F [facility] No illicit drug use No illicit drug use M [facility] 250 DO Work Phone: Comment on above: coffee 1 big gulp - pop 4 daily; 1/2 ppd; Sex Assigned At [facility] [employer] Other Start: 09-03-2022 Tobacco smoking status NHIS Smokes tobacco daily [facility] History of tobacco use Cigarette Smoker [facility] Start: 08-02-2023 Tobacco smoking status NHIS Never smoker [facility] Start: 08-02-2023 Tobacco smoking status RIIS Current every day smoker [facility] Medical Equipment Procedure Code Equipment Code Equipment Origin al Text Equipment Identifier Dates USE WITH INSULIN FIVE TIMES DAILY AND NEEDED [id number] Start: 10-23-2020 TEST FIVE TIMES DAILY [id number] Start: 10-23-2020 Goals Date Patient Goal Desired Activity /State Functional Status Date Assessment Result Facility 04-18-2023 Functional status Patient at Baseline [facility] Work Phone: 02-14-2022 PHQ-9 [id number] Mild (5-9) [facility] 250 DO Work Phone: 01-19-2022 PHQ-9 [id number] Moderate (10-14) [facility] 250 DO Work Phone: 01-12-2022 Functional status Patient at Baseline [facility] Work Phone: Mental Status Date Assessment Result Facility 04-18-2023 Cognitive function Cognitive Sta tus Patient at Baseline [facility] Work Phone: 01-12-2022 Cognitive function Cognitive Sta tus Patient at Baseline [facility] Work Phone: Clinical Notes 07-10-2021 to 10-17-2023 Note Date & Type Note Facility 10-17-2023 Note Entered by MURRAY TENORIO DO on October 17, 2023 16:37:15 EST From: FADI TENORIO DO To: [facility] Sent: 10/17/2023 16:37:15 EST Subject: Medication Management Submitted: Complete:tamsulosin (tamsulosin 0.4 mg oral capsule) Signed by FADI TENORIO DO 10/17/2023 16:37:00 EST Submitted: Complete:bumetanide (bumetanide 2 mg oral tablet) Signed by FADI TENORIO DO 10/17/2023 16:37:00 EST Submitted: Complete:potassium chloride (Potassium Chloride (Yki-Rrsp-Qgi M20) 20 mEq oral tablet, extended release) Signed by FADI TENORIO DO 10/17/2023 16:37:00 EST Approved with modifications: bumetanide (Bumetanide 2MG TABS) TAKE 1 TABLET BY MOUTH TWICE A DAY BEFORE MEALS Qty: 56 tab(s) Days Supply: 28 Refills: 2 Substitutions Allowed Route To Pharmacy [facility] Note from Pharmacy: Maximum Refills Reached Approved with modifications: potassium chloride (Potassium Chloride Ria ER 20MEQ TBCR) TAKE 1 TABLET BY MOUTH EVERY MORNING Qty: 28 tab(s) Days Supply: 28 Refills: 2 Substitutions Allowed Route To [facility] Note from Pharmacy: Maximum Refills Reached Approved with modifications: tamsulosin (Tamsulosin HCl 0.4MG CAPS) TAKE 1 CAPSULE BY MOUTH AT BEDTIME Qty: 28 cap(s) Days Supply: 28 Refills: 2 Substitutions Allowed Route To [facility] Note from Pharmacy: Maximum Refills Reached From: [facility] To: FADI TENORIO DO Sent: October 17, 2023 3:05:41 PM VAN DRIVER Subject: Medication Management Due: October 18, 2023 12:03:12 AM VAN DRIVER On Hold Pending Signature Drug: bumetanide (bumetanide [...] Pending Signature Drug: potassium chloride (Potassium Chloride (Kni-Tzsz-Wam M20) 20 mEq oral tablet, extended release), TAKE 1 TABLET BY MOUTH EVERY MORNING Quantity: 28 tab(s) Days Supply: 28 Refills: 0 Substitutions Allowed Notes from Pharmacy: Maximum Refills Reached-- this med was precribed during hospital stay, please send refill if appropriate Dispensed Drug: potassium chloride (Potassium Chloride (Emd-Izyv-Avp M20) 20 mEq oral tablet, extended release), [...] Allowed Notes from Pharmacy: Maximum Refills Reached [facility] 09-17-2023 Evaluation note Encounter Date Diagnosis Assessment Notes Sep, 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 Discussed diligent skin monitoring for breakdown given history of revision due to postop complications at operative site. Sep, Muscle spasm (ICD-10 - M62.838) [employer] Other 11-29-2023 History of Present illness Narrative* [...] OU OCT mac OU documented in this [id number] NoteEntered by FADI TENORIO DO on August 28, 2023 09:11:44 EST From: FADI TENORIO DO To: [facility] Sent: 08/28/2023 09:11:44 EST Subject: Medication Management Documented Complete:potassium chloride (Potassium Chloride (Hnr-Rgia-Ndk M20) 20 mEq oral tablet, extended release) [...] 28 Refills: 0 Substitutions Allowed Route To [facility] Note from Pharmacy: Maximum Refills Reached-this med was prescribed after a recent hospital stay, please send new rx if patient is to continue taking this medication- Thank you Approved bumetanide (Bumetanide 2MG TABS) TAKE 1 TABLET BY MOUTH TWICE A DAY BEFORE MEALS Qty: 56 tab(s) Days Supply: 28 Refills: 0 Substitutions Allowed Route To [facility] Note from Pharmacy: Maximum Refills Reached- this dose was given after hospital stay, please send refill if appropriate Approved potassium chloride (Potassium Chloride Ria ER 20MEQ TBCR) TAKE 1 TABLET BY MOUTH EVERY MORNING Qty: 28 tab(s) Days Supply: 28 Refills: 0 Substitutions Allowed Route To [facility] Note from Pharmacy: Maximum Refills Reached-- this med was precribed during hospital stay, please send refill if appropriate Patient matched by FADI TENORIO DO on 08/28/2023 09:11:04 EST From: [facility] - To: COBYFADI Sent: August 28, 2023 7:51:26 AM VAN DRIVER Subject: Medication Management Due: August 29, 2023 12:10:43 AM VAN DRIVER On Hold Pending Signature Drug: tamsulosin (tamsulosin [...] Pending Signature Drug: potassium chloride (Potassium Chloride (Ikc-Qypj-Qwo M20) 20 mEq oral tablet, extended release), TAKE 1 TABLET BY MOUTH EVERY MORNING Quantity: 28 tab(s) Days Supply: 28 Refills: 0 Substitutions Allowed Notes from Pharmacy: Maximum Refills Reached- rx sent upon discharge from recent hospital stay, please send refill if appropriate Dispensed Drug: potassium chloride (Potassium Chloride (Yea-Jleq-Qfy M20) 20 mEq oral tablet, extended release), TAKE 1 TABLET BY MOUTH EVERY MORNING Quantity: 28 tab(s) Days Supply: 28 Refills: 0 Substitutions Allowed Notes from Pharmacy: Maximum Refills Reached-- this med was precribed during hospital stay, please send refill if appropriate [id number] Discharge summary Author Harjeet Ruelas [facility] August 03, 2023 1:06pm Note Date/Time August 03, 2023 1 0:59am [place] [address] Discharge Summary Signed Patient: Chandler Minor MR#: [id number] : 1970 Acct: [id number] Age/Sex: 53 / M Date of Service: 08/02/23 Loc: [email or web address] [id number]: Harjeet Ruelas M.D. cc: None,Doctor D.OCirilo; Harjeet Ruelas M.D.~ Physician/JULIA Physician/JULIA Date of service: 08/03/23 Date of hospitalization: 08/02/23 04:45 Primary Care Physician/JULIA: Doctor Domo DO Admitting Physician/JULIA: Helen Jovel MD Discharging [...] units. Patient reports that he came to [place] to see his mom. Patient reports chronic [...] or Physician's Assistantworking with me, had a [employer] encounter. 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?alert oriented x3, CN II to XII intact, [...] Lymph % (Auto) 12.2 L D Cancelled Bryan % (Auto) 7.5 D Cancelled Eos % (Auto) 3.0 D Cancelled Baso % (Auto) 0.3 Cancelled Neut # (Auto) 7.89 H D Cancelled Lymph # (Auto) 1.26 D Cancelled Bryan # (Auto) 0.77 D Cancelled Eos # [...] MPV Neut % (Auto) Lymph % (Auto) Bryan % (Auto) Eos % (Auto) Baso % (Auto) Neut # (Auto) Lymph # (Auto) Bryan # (Auto) Eos # (Auto) Baso # [...] MPV Neut % (Auto) Lymph % (Auto) Bryan % (Auto) Eos % (Auto) Baso % (Auto) Neut # (Auto) Lymph # (Auto) Bryan # (Auto) Eos # (Auto) Baso # [...] Breath Or Wheezing) fluticasone propionate 50 mcg/actuation [place],Suspension 2 spray INTRANASAL DAILY PRN (Reason: allergies) [...] Ruelas Documented By: Harjeet Ruelas M.D. 08/03/23 1050 Signed By: <Electronically signed by Harjeet Ruelas M.D.> 08/03/23 1301 [facility] Work Phone: [phone]) 112-576910-21-2023 [place] [id number] Discharge Summary Signed Patient: Chandler Minor MR#: [id number] : 1970 Acct: [id number] Age/Sex: 53 / M Date of Service: 08/02/23 Loc: [facility] [[email or web address] [id number]: Harjeet Ruelas M.D. cc: None,Doctor DCiriloOCirilo; Harjeet Ruelas M.D. Physician/JULIA Physician/JULIA Date of service: 08/03/23 Date of hospitalization: 08/02/23 04:45 Primary Care Physician/JULIA: Doctor Domo DO Admitting Physician/JULIA: Heeln Jovel MD Discharging Physician/JULIA: Harjeet Ruelas MD [...] units. Patient reports that he came to [place] to see his mom. Patient reports chronic [...] I, or a Nurse Practitioner or Physician's Photo Technologist working with me, had a Dhvw-ng-Bnti encounter. 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???alert oriented x3, CN II to XII intact, [...] Hct 34.3 L Canc (more content not included)...[facility] 08-03-2023 Hospital Discharge instructions Additional Instructions Please make an appointment with your PCP in 1 to 2 weeks [facility]aint[facility] levels [facility] Work Phone: 1(750) 248-122010-20-2023 Consult note Author Marcelino Abel [facility] August 02, 2023 2:46pm Note Date/Time August 02, 2023 1 1:10am [facility] [place] [address] Neurology Consult Note Signed Patient: Chandler Minor MR#: [id number] : 1970 Acct: [id number] Age/Sex: 53 / M Date of Service: 08/02/23 Loc: [facility] [[email or web address] 4828-[address]: Helen Jovel M.D. cc: [...] No Would like to be referred to Election Assistant for info?: No Smoking Status: Current every [...] 87.4 H Lymph % (Auto) 6.3 L Bryan % (Auto) 3.4 L Eos % (Auto) 2.0 Baso % (Auto) 0.3 Neut # (Auto) 12.71 H Lymph # (Auto) 0.92 Bryan # (Auto) 0.50 Eos # (Auto) 0.29 [...] Color Urine Appearance Urine pH Ur Specific [place] Urine Protein Urine Glucose (UA) Urine Ketones [...] MPV Neut % (Auto) Lymph % (Auto) Bryan % (Auto) Eos % (Auto) Baso % (Auto) Neut # (Auto) Lymph # (Auto) Bryan # (Auto) Eos # (Auto) Baso # [...] Color Urine Appearance Urine pH Ur Specific [place] Urine Protein Urine Glucose (UA) Urine Ketones [...] MPV Neut % (Auto) Lymph % (Auto) Bryan % (Auto) Eos % (Auto) Baso % (Auto) Neut # (Auto) Lymph # (Auto) Bryan # (Auto) Eos # (Auto) Baso # [...] Color Urine Appearance Urine pH Ur Specific [place] Urine Protein Urine Glucose (UA) Urine Ketones [...] MPV Neut % (Auto) Lymph % (Auto) Bryan % (Auto) Eos % (Auto) Baso % (Auto) Neut # (Auto) Lymph # (Auto) Bryan # (Auto) Eos # (Auto) Baso # [...] Appearance Clear Urine pH 5.0 Ur Specific [place] 1.015 Urine Protein 300 A Urine Glucose [...] study as part of stroke work-up 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 Rest of the management per primary team Documented By: Marcelino Abel M.D. 08/02/23 1107 Signed By: <Electronically signed by Marcelino Abel M.D.> 08/02/23 8925 [facility] Work Phone: 1(171) 395-656510-20-2023 History and physical note Author Harjeet Ruelas [facility] August 02, 2023 2:16pm Note Date/Time August 02, 2023 1 1:18am [place] [address] Internal Med History&Physical Signed Patient: Chandler Minor MR#: [id number] : 1970 Acct: [id number] Age/Sex: 53 / M Date of Service: 08/02/23 Loc: [facility] [[email or web address] 4828-[address]: Helen Jovel M.D. cc: [...] micturition. Patient reports that he came to [place] to see his mom. 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 oriented x3, CN II to XII intact, [...] (Clear) Urine pH 5.0 (<=7.5) Ur Specific [place] 1.015 (1.005-1.025) Urine Protein 300 A (Negative) [...] signed by Harjeet Ruelas M.D.> 08/02/23 1416 [facility] Work Phone: 1(436) 122-959110-20-2023 Progress note Author Christopher Santiago [facility] August 02, 2023 6:27am Note Date/Time August 02, 2023 4 :27am [place] [id number] Emergency Department Note Signed Patient: Chandler Minor MR#: [id number] : 1970 Acct: [id number] Age/Sex: 53 / M Date of [...] Yes unobtainable due to mental status PFSH PFSH Medical History (Updated 08/02/23 @ 05:23 by Chrsitopher Santiago DO) Diabetes Social History Advance Directives: No Advance Directives Information Provided: No Advance Directives on File: No Would like to be referred to Election Assistant for info?: No Smoking Status: Never smoker [...] with prior history of right-sided BKA Neuro [place] Coma Scale: document GCS findings [place] Coma Scale Eye Opening: No response Daniel coma scale verbal response: No response Daniel Coma Scale Motor Response: Withdraws in response to pain Daniel coma scale total score: 6 Sensorium/orientation: lethargic [...] patient be admitted to PCU to Dr. Jovle. Patient continues to be stable at this [...] highlighted in the diagnostics section of the [employer] record. Imaging studies reviewed and interpreted by myself and the radiologist. Radiology interpretations are found in the diagnostics section of the [employer] record. Lab Data 08/02/23 04:24 08/02/23 04:24 [...] Lymph % (Auto) 6.3 L (13.4-45.1) % Bryan % (Auto) 3.4 L (4.0-12.7) % Eos % (Auto) 2.0 (0.0-5.8) % Baso % (Auto) 0.3 (0.0-1.3) % Neut # (Auto) 12.71 H (1.70-7.00) 10*3/uL Lymph # (Auto) 0.92 (0.80-3.30) 10*3/uL Bryan # (Auto) 0.50 (0.30-0.90) 10*3/uL Eos # [...] (41.1-75.9) % Lymph % (Auto) (13.4-45.1) % Bryan % (Auto) (4.0-12.7) % Eos % (Auto) (0.0-5.8) % Baso % (Auto) (0.0-1.3) % Neut # (Auto) (1.70-7.00) 10*3/uL Lymph # (Auto) (0.80-3.30) 10*3/uL Bryan # (Auto) (0.30-0.90) 10*3/uL Eos # (Auto) [...] signed by Christopher Santiago D.O.> 08/02/23 0627 [facility] Work Phone: 1(508) 416-319310-20-2023 Progress note Author Christopher Santiago [facility] August 02, 2023 6:27am Note Date/Time August 02, 2023 4 :27am [place] [address] Emergency Department Note Signed Patient: Chandler Minor MR#: [id number] : 1970 Acct: [id number] Age/Sex: 53 / M Date of [...] Unobtainable: Yes unobtainable due to mental status [facility] Medical History (Updated 08/02/23 @ 05:23 by Christopher Santiago DO) Diabetes Social History Advance Directives: No Advance Directives Information Provided: No Advance Directives on File: No Would like to be referred to Election Assistant for info?: No Smoking Status: Never smoker [...] Neuro Daniel Coma Scale: document GCS findings [place] Coma Scale Eye Opening: No response [place] coma scale verbal response: No response [place] Coma Scale Motor Response: Withdraws in response to pain Daniel coma scale total score: 6 Sensorium/orientation: lethargic [...] highlighted in the diagnostics section of the [employer] record. Imaging studies reviewed and interpreted by myself and the radiologist. Radiology interpretations are found in the diagnostics section of the [employer] record. Lab Data 08/02/23 04:24 08/02/23 04:24 [...] Lymph % (Auto) 6.3 L (13.4-45.1) % Bryan % (Auto) 3.4 L (4.0-12.7) % Eos % (Auto) 2.0 (0.0-5.8) % Baso % (Auto) 0.3 (0.0-1.3) % Neut # (Auto) 12.71 H (1.70-7.00) 10*3/uL Lymph # (Auto) 0.92 (0.80-3.30) 10*3/uL Bryan # (Auto) 0.50 (0.30-0.90) 10*3/uL Eos # [...] (41.1-75.9) % Lymph % (Auto) (13.4-45.1) % Bryan % (Auto) (4.0-12.7) % Eos % (Auto) (0.0-5.8) % Baso % (Auto) (0.0-1.3) % Neut # (Auto) (1.70-7.00) 10*3/uL Lymph # (Auto) (0.80-3.30) 10*3/uL Bryan # (Auto) (0.30-0.90) 10*3/uL Eos # (Auto) [...] signed by Christopher Santiago D.O.> 08/02/23 0627 [facility] Work Phone: [phone] NoteRight Eye Quality was good. Scan locations included subfoveal. Progression has improved. Findings include abnormal foveal contour. Left Eye Quality was poor.[id number] History of Present illness Narrative* Demetri Frank [...] OU OCT mac OU documented in this [id number] NoteRight Eye Quality was good. Scan locations included subfoveal. Progression has worsened. Findings include abnormal foveal contour, intraretinal fluid. Left Eye Quality was borderline. Scan locations included subfoveal. Progression has worsened. Findings include abnormal foveal contour, intraretinal fluid. [id number] History of Present illness Narrative* Demetri Frank MD - 06/26/2023 4:27 PM EDT Longstanding PDR OU, DME, mac ischemia OU Sp PRP OU, Repeated injections - last 10/2022 Did not notice any real improvement with injections [place] [id number] Vision worse per pt A/P 1. DM [...] OU OCT mac OU documented in this [id number] Evaluation note* Encounter Date Diagnosis Assessment Notes [...] medication. May, Muscle spasm (ICD-10 - M62.838) [facility] Other 07-06-2023 Progress note Author Nkechi [facility] April 18, 2023 10:57am Note Date/Time April 18, 2023 10:57 am [facility] [address] [place] [address] Nephrology Progress Note Signed Patient: Chandler Minor MR#: [id number] : 1970 Acct:[id number] Age/Sex: 52 / M Adm Date: 3 Loc: Room: [address] [place] [address] Type: ADM IN Attending Dr: Kameron Dos Santos DO Copies to: ~ Date of Service: 04/18/2023 Subjective Subjective Narrative: Mr. Minor is a 52-year-old white gentleman with history of DM 2, HTN, COPD and CKD stage III s/p right BKA. Patient was transferred from [facility] forelevated creatinine above the baseline 3.26 [...] the last 2 weeks. He presented to [facility] with generalized weakness. Creatinine was found to be 3.26 mg/dL as stated above. Patient was given 1 L of IV fluid and was transferred to [facility] for further evaluation. Patient denied any chest [...] Output I&O: Intake & Output 04/15/23 04/16/23 04/17/2304/18/23 23:59 23:59 23:59 23:59 Intake Total 1700 [...] 10 Mg Tablet) 10 mg PO DAILY [facility] Stop: 04/15/24 13:39 Last Admin: 04/18/23 09:28 Dose: 10 mg Atorvastatin Calcium (Atorvastatin 40 Mg Tablet) 40 mg PO QPM [facility]1983 Stop: 04/15/24 20:59 Last Admin: 04/17/23 20:42 Dose: 40 mg Bumetanide (Bumetanide 1 Mg Tablet) 1 mg PO BID@0800,1600 [facility]1983 Stop: 04/16/24 15:59 Last Admin: 04/18/23 09:28 Dose: 1 mg Dextrose (Dextrose 50% In Water 25 Gm/50 Ml Syringe) 0 gm IV-PUSH PRN PRN PRN Reason: Hypoglycemia Stop: 04/15/24 05:42 Enoxaparin Sodium (Enoxaparin 40 Mg/0.4 Ml Syringe) 40 mg SUBCUT DAILY@10 [facility], [facility]1983 Stop: 04/15/24 09:59 Last Admin: 04/18/23 09:35 [...] 300 Units/3 Ml Insuln.Pen) 0 units SUBCUT TID..[facility]; Protocol Stop: 04/15/24 07:59 Last Admin: 04/18/23 09:29 Dose: Not Given Insulin Glargine (Insulin Glargine 300 Units/3 Ml Insuln.Pen) 42 units SUBCUT BID [facility]1983 Stop: 04/15/24 08:59 Last Admin: 04/18/23 09:29 Dose: 42 units Levothyroxine Sodium (Levothyroxine 25 Mcg Tablet) 25 mcg PO DAILY.629 [facility]1983 Stop: 04/15/24 06:29 Last Admin: 04/18/23 05:34 [...] 15 Gm Bottle) 1 applic TOPICAL BID [facility] Last Admin: 04/18/23 09:29 Dose: 1 applic Pantoprazole Sodium (Pantoprazole 40 Mg Tablet.Dr) 40 mg PO DAILY [facility]1983 Stop: 04/15/24 08:59 Last Admin: 04/18/23 09:28 Dose: 40 mg Potassium Chloride (Potassium Chloride Er 20 Meq Tab.Er.Prt) 40 meq PO DAILY PRN PRN Reason: Hypokalemia Stop: 04/15/24 13:39 Tamsulosin HCl (Tamsulosin 0.4 Mg Cap.Er.24h) 0.4 mg PO DAILY [facility]1983 Stop: 04/16/24 14:04 Last Admin: 04/18/23 09:28 Dose: 0.4 mg Trazodone HCl (Trazodone 50 Mg Tablet) 50 mg PO HS [facility]1983 Stop: 04/16/24 21:59 Last Admin: 04/17/23 21:52 [...] office. Documented By: Nkechi Kc MD 04/18/23 1050 Signed By: <Electronically signed by MD Nkechi Kc> 04/18/23 0639 [facility] Work Phone: 1([phone]) 606-563207-05-2023 Progress note Author Kameron Dos Santos [facility] April 17, 2023 4:48pm Note Date/Time April 17, 2023 4:42p m [facility] [address] [place] [address] Hospitalist Progress Note Signed Patient: Chandler Minor MR#: [id number] : 1970 Acct:[id number] Age/Sex: 52 / M Adm Date: 3 Loc: Room: [address] [place] [address] Type: ADM IN Attending Dr: Kameron Dos [...] by Kameron Dos Santos DO> 04/17/23 1648 [facility] Work Phone: 1([phone]) 637-501607-05-2023 Consult note Author Nkechi Kc [facility] April 17, 2023 11:20am Note Date/Time April 17, 2023 11:04 am [facility] [address] [place] [address] Nephrology Consult Note Signed Patient: Chandler Minor MR#: [id number] : 1970 Acct:[id number] Age/Sex: 52 / M Adm Date: 3 Loc: Room: [address] [place] [address] Type: ADM IN Attending Dr: Kameron Dos [...] s/p right BKA. Patient was transferred from [facility] forelevated creatinine above the baseline 3.26 mg/dL compared to 1.7 to 1.8 mg/dL. Apparently the patient had fluid overload and he was really taking bumetanide 1 mg twice a day. He was seen by Dr. Prado in the office for consultation last month and metolazone 2.5 mg on [facility] schedule was added. Patient lost close to 20pounds over the last 2 weeks. He presented to [facility] with generalized weakness. Creatinine was found to be 3.26 mg/dL as stated above. Patient was given 1 L of IV fluid and was transferred to [facility] for further evaluation. 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) Family History Other Diabetes mellitus, type 2 [...] 10 Mg Tablet) 10 mg PO DAILY GUERLINE Stop: 04/15/24 13:39 Last Admin: 04/17/23 09:13 Dose: 10 mg Atorvastatin Calcium (Atorvastatin 40 Mg Tablet) 40 mg PO QPM GUERLINE Stop: 04/15/24 20:59 Last Admin: 04/16/23 21:34 Dose: 40 mg Dextrose (Dextrose 50% In Water 25 Gm/50 Ml Syringe) 0 gm IV-PUSH PRN PRN PRN Reason: Hypoglycemia Stop: 04/15/24 05:42 Enoxaparin Sodium (Enoxaparin 40 Mg/0.4 Ml Syringe) 40 mg SUBCUT DAILY@10 [facility]1983 Stop: 04/15/24 09:59 Last Admin: 04/17/23 09:14 [...] Units/3 Ml Insuln.Pen) 0 units SUBCUT TID.WM.HS [facility], [facility]1983; Protocol Stop: 04/15/24 07:59 Last Admin: 04/17/23 07:51 Dose: Not Given Insulin Glargine (Insulin Glargine 300 Units/3 Ml Insuln.Pen) 42 units SUBCUT BID [facility] Stop: 04/15/24 08:59 Last Admin: 04/17/23 09:14 Dose: Not Given Levothyroxine Sodium (Levothyroxine 25 Mcg Tablet) 25 mcg PO DAILY.629 [facility] Stop: 04/15/24 06:29 Last Admin: 04/17/23 06:18 [...] 15 Gm Bottle) 1 applic TOPICAL BID [facility] Last Admin: 04/17/23 09:13 Dose: 1 applic Pantoprazole Sodium (Pantoprazole 40 Mg Tablet.Dr) 40 mg PO DAILY [facility] Stop: 04/15/24 08:59 Last Admin: 04/17/23 09:13 [...] Appearance Clear Urine pH 6.5 Ur Specific [place] 1.017 Urine Protein 300 H Urine Glucose [...] Jesu Reese M.D.04/16/2023 6:22 PM Dictation Location: [place] [address] Any impression(s) listed above is documentation that was entered by the reading physician into a diagnostic report(s) for Chandler Forde Latah. I have reviewed the report(s) and am [...] this. Documented By: Nkechi Kc MD 04/17/23 1106 Signed By: <Electronically signed by MD Nkechi Kc> 04/17/23 1125 [facility] Work Phone: 1(138) 331-881407-04-2023 Progress note Author Kameron Dos Santos [facility] April 16, 2023 5:33pm Note Date/Time April 16, 2023 5:27p m [facility] [address] [place] [address] Progress Note Signed Patient: Chandler Minor MR#: [id number] : 1970 Acct:[id number] Age/Sex: 52 / M Adm Date: 3 Loc: Room: [address] [place] [address] Type: ADM IN Attending Dr: Kameron Dos [...] increased his diuretic recently. [facility] are incomplete. It is noted that his [...] by Kameron Dos Santos DO> 04/16/23 1733 [facility] Work Phone: 1(308) 507-623007-04-2023 History and physical note Author Albert Woods [facility] April 16, 2023 5:29am Note Date/Time April 16, 2023 5:29a m [facility] [address] [place] [address] Hospitalist H&P Signed Patient: Chandler Minor MR#: [id number] : 1970 Acct:[id number] Age/Sex: 52 / M Adm Date: 3 Loc: Room: [address] [place] [address] Type: ADM IN Attending Dr: Kameron Dos [...] presents hospital today as a transfer from [facility] for FRANK. He states he was recently in a fluid overload state and he was already taking Bumex 1 mg twice daily and his medical specialist recently put him on metolazone 2.5 mg Saturday, he states once that was started he lost 19 pounds of water weight and roughly 2 weeks and he presented to the hospital today with chief complaint of weakness and chest pain at [facility]. [facility] was found to have FRANK with his creatinine 3.26. He was given 1 L of IV fluids at [facility] and then he was subsequently transferred here. [...] neuropathy Generalized headaches Hypertension Hypertensive emergency Hypothyroid PRAVEEAN on CPAP PAD (peripheral artery disease) Parkinson disease Pulmonary sarcoidosis Right hemiplegia Seizure disorder Seizures Tobacco abuse Surgical History S/P percutaneous transluminal angioplasty ([employer]CHOR) Family History Other Diabetes mellitus, type 2 [...] She received 1 L IV fluids at [facility] ? Received 2 more liters of IV [...] (# of days): 3 Documented By: Albert oWods DO 04/16/23 0520 Signed By: <Electronically signed by Albert Woods DO> 04/16/23 0529 [facility] Work Phone: 1(524) 637-977206-28-2023 Evaluation note* Encounter Date Diagnosis Assessment Notes Treatment Notes Treatment Clinical Notes Mar, Cristobal hy kid w cr kid I-IV (ICD-10 - I12.9) [facility] Other 05-23-2023 NotePROCEDURE: XR CHEST 1 V [...] authenticated by: JUAN LUIS HAND Date: 2023-03-05 07:12Th[facility] NoteRight Eye Quality was good. Scan locations included subfoveal. Progression has worsened. Findings include intraretinal fluid. Left Eye Quality was good. Scan locations included subfoveal. Progression has worsened. Findings include intraretinal fluid. Notes Atrophy and IRF OU Brady Lowry MD [id number] Instructions* Patient Instructions* Maddie Lau MD - [...] appointment for next Saturday. documented in this [id number] History of Present illness Narrative* Maddie Lau [...] Seen with Dr. Lowry documented in this [id number] History of Present illness Narrative* Brady Lowry [...] note. Brady Lowry MD documented in this [id number] NoteTime Out Confirmed correct patient, procedure, site, [...] fill in OU Inferior VH limiting uptake [id number] NoteRight Eye Quality was good. Scan locations included subfoveal. Progression has been stable. Findings include abnormal foveal contour. Left Eye Quality was good. Scan locations included subfoveal. Progression has been stable. Findings include abnormal foveal contour. Notes Atrophy/thin retina [id number] History of Present illness Narrative * Hema [...] OU OCT mac OU documented in this [id number] NoteRight Eye Quality was good. Scan locations included subfoveal. Progression has improved. Findings include abnormal foveal contour, intraretinal fluid. Left Eye Quality was good. Scan locations included subfoveal. Progression has improved. Findings include abnormal foveal contour, intraretinal fluid. [id number] History of Present illness Narrative* Demetri Frank [...] Color photos ou PRP documented in this [id number] NoteHNO ID: [id number] Author: Vj Haddad II, OD Service: ? Author Type: WEB APPLICATIONS PROGRAMMER Type: Progress Notes Filed: 09/03/2022 5:22 PM Note Text: Assessment and Plan Z02.71 Disability examination (primary encounter diagnosis) Comment: Patient understands that today's examination is for purposes of disability determination only. Patient will continue all ongoing care with previously established care givers. 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 I have seen and examined Chandler Forde Mily. I have discussed the case and the management of this patient's care with the Resident/Fellow, if applicable. I also have reviewed and agree with the assessment and plan as stated above and agree with all of its relevant components. Vj Haddad II, [facility] Instructions* Patient Instructions* Vj Haddad II, OD - 09/03/2022 5:11 PM EST [facility] History of Present illness Narrative* Vj Haddad II, OD - 09/03/2022 5:08 PM EST Assessment and Plan Z02.71 Disability examination (primary encounter diagnosis) Comment: Patient understands that today's examination is for purposes of disability determination only. Patient will continue all ongoing care with previously established care givers. 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 I have seen and examined Chandler Forde [place]ata[place]. I have discussed the case and the management of this patient's care with the Resident/Fellow, if applicable. I also have reviewed and agree with the assessment and plan as stated above and agree withall of its relevant components. Vj Haddad II, OD documented in this encounterSum[facility]11-15-2022 Evaluation note* Encounter Date Diagnosis Assessment Notes Treatment Notes Treatment Clinical Notes Aug, Type 2 diabetes mellitus with hyperglycemia (ICD-10 - E11.65) [facility] Other 11-14-2022 Evaluation note* Encounter Date Diagnosis Assessment Notes Treatment Notes Treatment Clinical Notes Aug, Type 2 diabetes mellitus with hyperglycemia (ICD-10 - E11.65) [place] [employer] Other 08-03-2022 Evaluation note* Encounter Date Diagnosis Assessment Notes Treatment Notes Treatment Clinical Notes May, Type 2 diabetes mellitus with hyperglycemia (ICD-10 - E11.65) 1. Uncontrolled, a Type 2 diabetes with A1c of 8.6%. 2. Blood glucose levels improved from last visit 01/10/22 a1c was 15.8%. According to [place] g6 cgm download 05/03/22-05/16/22: Avg glucose 184. [...] would need stopped. Pt agreeable to starting coterbbfv85qf once daily 3. Patient is alert, oriented [...] (hypertension) (ICD-10 - I10) on arb May, group home current use of insulin (ICD-10 - Z79.4) May, BMI 36.0-36.9,adult (ICD-10 - Z68.36) 03 May, 2022 Hypoglycemia associated with type 2 diabetes mellitus (ICD-10 - E11.649) [facility] Other [id number] NoteRight Eye Quality was good. Progression has worsened. Findings include intraretinal fluid, subretinal fluid, abnormal foveal contour. Left Eye Quality was good. Progression has worsened. Findings include intraretinal fluid, subretinal fluid, abnormal foveal contour.[id number] History of Present illness Narrative* Demetri Frank [...] go to ED if symptoms recur precert althea [id number] today F/u 4-6 weeks shahla/vivian Dilate ou Oct ou Color photos ou documented in this [id number] Telephone encounter Note* Telephone Encounter - Agustin Munguia MD - 03/19/2022 9:20 AM EDT Already has appt this Wed 6/8 Confirmed appt with family [employer] Work Phone: 1(986) 337-101106-06-2022 Miscellaneous Notes* Telephone Encounter - Agustin Munguia MD - 03/19/2022 9:20 AM EDT Already has appt this 03/21 Confirmed appt with family * Telephone Encounter - Rita Gonzalez - 03/19/2022 8:05 AM EDT Pt's family called back in regarding this issue. They are very frustrated because they never received a call from anyone with an appt date/time. They request a call at [phone] to proceed. She states she will call back in tomorrow should she not hear back. Thank you. * Telephone Encounter - Ebonie Huizar - 03/07/2022 10:43 AM EDT Family calling in on behalf of pt - regarding above mssgs. Asking to be rescheduled for sooner appt when possible. Best contact # [phone] Thank you! * Telephone Encounter - Rita [...] he cannot see. Please contact pt at [phone] to discuss/advise. Thank you. documented in this [id number] Miscellaneous Notes* Telephone Encounter - Rita Gonzalez - 03/19/2022 8:05 AM EDT Pt's family called back in regarding this issue. They are very frustrated because they never received a call from anyone with an appt date/time. They request a call at [phone] to proceed. She states she will call back in tomorrow should she not hear back. Thank you. * Telephone Encounter - Ebonie Huizar - 03/07/2022 10:43 AM EDT Family calling in on behalf of pt - regarding above mssgs. Asking to be rescheduled for sooner appt when possible. Best contact # [phone] Thank you! * Telephone Encounter - Rita [...] he cannot see. Please contact pt at [phone] to discuss/advise. Thank you. documented in this [id number] Telephone encounter Note* Telephone Encounter - Rita Gonzalez - 03/19/2022 8:05 AM EDT Pt's family called back in regarding this issue. They are very frustrated because they never received a call from anyone with an appt date/time. They request a call at [phone] to proceed. She states she will call back in tomorrow should she not hear back. Thank you. [id number] Evaluation note* Encounter Date Diagnosis Assessment Notes Treatment Notes Treatment Clinical Notes February, Other Summary of Visi t: (A) reviewed which foods have carbs and which are low carb (B) basic carb counting (C) treatment of hypoglycemia Patient set the following goals: - practice carb counting and dosing insulin accurately [facility] Other 05-25-2022 Evaluation note* Encounter Date Diagnosis Assessment Notes Treatment Notes Treatment Clinical Notes February, Type 2 diabetes mellitus with hyperglycemia (ICD-10 - E11.65) [facility] Other 05-25-2022 Telephone encounter Note* Telephone Encounter - Ebonie Huizar - 03/07/2022 10:43 AM EDT Family calling in on behalf of pt - regarding above mssgs. Asking to be rescheduled for sooner appt when possible. Best contact ph# [phone] Thank you! [id number] Miscellaneous Notes* Telephone Encounter - Ebonie Huizar - 03/07/2022 10:43 AM EDT Family calling in on behalf of pt - regarding above mssgs. Asking to be rescheduled when possible. Best contact ph# [phone] Thank you! * Telephone Encounter - Rita [...] he cannot see. Please contact pt at [phone] to discuss/advise. Thank you. documented in this [id number] Miscellaneous Notes* Telephone Encounter - Ebonie Huizar - 03/07/2022 10:43 AM EDT Family calling in on behalf of pt - regarding above mssgs. Asking to be rescheduled for sooner appt when possible. Best contact # [phone] Thank you! * Telephone Encounter - Rita [...] he cannot see. Please contact pt at [phone] to discuss/advise. Thank you. documented in this [id number] Evaluation note* Encounter Date Diagnosis Assessment Notes Treatment Notes Treatment Clinical Notes February, Type 2 diabetes mellitus with hyperglycemia (ICD-10 - E11.65) [facility] Other 05-02-2022 Telephone encounter Note* Telephone Encounter [...] he cannot see. Please contact pt at [phone] to discuss/advise. Thank you. [id number] Miscellaneous Notes* Telephone Encounter - Rita Gonzalez [...] he cannot see. Please contact pt at [phone] to discuss/advise. Thank you. documented in this [id number] Evaluation note* Encounter Date Diagnosis Assessment Notes [...] Order placed for Dexcom G6 CGM to [facility] supplies. [facility] contact information provided to pt. All questions and concerns addressed. Encouraged to follow up for next appointment. 30 minutes was spent on education by Blanca STRAUSS, RN. Reviewed dexcom g6 cgm download with recommendation to reduce levemir to 40 units bid. Payton PAUL, CHEF CONCIERGE-C -ADM [facility] Other 04-15-2022 Evaluation note* Encounter Date Diagnosis [...] educating the patient by Dolores Osborne RN. [facility] Other 04-11-2022 Evaluation note* Encounter Date Diagnosis Assessment Notes Treatment Notes Treatment Clinical Notes Jan, Type 2 diabetes mellitus with hyperglycemia (ICD-10 - E11.65) 1. Uncontrolled, a Type 2 diabetes with A1c of 15.8% 01/10/2022 [facility] 2. Blood glucose levels above target. Recommend [...] to 1.8mg dose. Recommend f/u apt with unit educator for application of dexcom g6- he is to bring his phone to see if compatible for julia for dexcom g6- if not compatible will recommend he wear professional dexcom blinded x10 days. He was given log book instructed to log meals, glucose, insulin dosing and bring to f/u apt for review with unit educator. Also recommend he see RD to assist with carb counting. He is interested in insulin pump. He was also given phone number/website to [employer], encouraged to call for apt. Will send [employer] talking meter- meter blood sampling for strip [...] or diabetes medication issues. 6. Prescriptions: Uses [employer] [place]. 7. F/u with unit educator 2 weeks application of dexcom- see above. Referral to RD for instruction on carb counting- pt interested in insulin pump. Jan, Dietary counseling and surveillance (ICD-10 - Z71.3) see above Jan, Hyperlipidemia (ICD-10 - E78.5) on statin Jan, HTN (hypertension) (ICD-10 - I10) on arb Jan, group home current use of insulin (ICD-10 - Z79.4) Jan, BMI 36.0-36.9,adult (ICD-10 - Z68.36) Jan, Hypoglycemia associated with type 2 diabetes mellitus (ICD-10 - E11.649) Pt would greatly benefit from fdc personal use of CGM device such as a [employer] g6 with ability for high/low alarm feature. Pt. currently using insulin injections >3 times/day with insulin to carb ratio/corrective factor and requires frequent self adjustment of insulin based on carbohydrate intake, physical activity blood glucose monitoring. A CGM would improve ease of access to glucose results and reduce risk of hypoglcyemia/hyperg lycemia. [facility] Other 04-01-2022 Hospital Discharge instructionsAmbulatory Orders* Initiate [...] Mepilex border foam. DISCHARGE INSTRUCTIONS FOR CARDIAC REMOTE SENSING TECHNICIAN PHONE NUMBER OF YOUR PHYSICIAN: [phone] PROCEDURE: Heart Cath The following instructions have [...] cold, numb, blue or white, call the truss assembler immediately. 4. ACTIVITY: You are advised to [...] bottle, follow the instructions on the bottle. [facility] is not responsible for incorrect prescription information provided by the patient during their visit. Do not stop your medications without consulting your health care provider. Please take the list with you to your next doctor's appointment.[facility] Work Phone: 1(840) 177-482503-31-2022 Progress note Author Jonn Wallace [facility] January 11, 2022 4:57pm Note Date/Time January 11, 2022 4:4 8pm [facility] ENTER [address] [place] [address] Hospitalist Progress Note Signed Patient: Chandler Minor MR#: [id number] : 1970 Acct:[id number] Age/Sex: 51 / M Adm Date: 2 Loc: Room: [address] [place] [address] Type : ADM INOo Attending Dr: Jonn [...] stable. Documented By: Jonn Wallace MD 2 [id number] Signed By: <Electronically signed by Jonn Wallace MD> 01/11/22 6858 [facility] Work Phone: 1(731) 981-311903-31-2022 Consult note Author W Torsten [facility] January 11, 2022 2:30pm Note Date/Time January 11, 2022 2:3 0pm [facility] ENTER [address] [place] [address] Cardiology Consult Note Signed Patient: Chandler Minor MR#: [id number] : 1970 Acct:[id number] Age/Sex: 51 / M Adm Date: 2 Loc: Room: [address] [place] [address] Type : ADM IN Attending Dr: Jonn [...] or illicit drug use. Denies personal h/o NE, HF, bleeding disorder. His father had ministrokes [...] abuse Surgical History S/P percutaneous transluminal angioplasty ([employer]CHOR) Family History Other Diabetes mellitus, type 2 [...] Lymph # (Auto) 1.2 1.3 (1.00-4.8) x10E3/uL Bryan # (Auto) 0.5 0.6 (0.0-0.8) x10E3/uL Eos [...] ml @ 999 mls/hr IV .Q1H1M ONE Rx#:[id number] Oral 100 / 100 50 / 50 [...] signed by Leann Sarmiento DO> 01/11/22 1430 [facility] Work Phone: 1(694) 233-825103-31-2022 Procedure [facility]03-31-2022 Procedure [facility]03-31-2022 History and physical note Author Jonn Wallace [facility] January 11, 2022 11:49am Note Date/Time January 11, 2022 11: 49am [facility] EN[facility] [address] [place] [address] Hospitalist H&P Signed Patient: Chandler Minor MR#: [id number] : 1970 Acct:[id number] Age/Sex: 51 / M Adm Date: 2 Loc: Room: [address] [place] [address] Type : ADM IN Attending Dr: Jonn [...] abuse Surgical History S/P percutaneous transluminal angioplasty ([employer]ORNING [employer]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 Documented By: Jonn Wallace MD 2 [id number] Signed By: <Electronically signed by Jonn Wallace MD> 01/11/22 1142 [facility] Work Phone: 1(424) 102-400003-22-2022 Evaluation note* Encounter Date Diagnosis Assessment Notes [...] site. Needs emergent attention should redness/ulcer develop. [facility] Other 11-16-2021 Evaluation note* Encounter Date Diagnosis [...] Patient care instructions given in writting by [facility] Home document [facility] Other 11-01-2021 History general Narrative - Reported* [...] Hospitalization History Hypertensive emergency, chest pain 01/10/2022 [facility] Other 11-01-2021 History general Narrative - Reported* [...] chest pain 01/10/2022 Hospitalization History CHF, CELLULTIS, [facility] Other 10-07-2021 Evaluation note* Encounter Date Diagnosis [...] Jul, HTN (hypertension) (ICD-10 - I10) Jul, manager terminal current us e of insulin (ICD-10 - Z79.4) [facility] Other 09-27-2021 Evaluation note* Encounter Date Diagnosis [...] we can consider him for a prosthetic. [place] [employer] Other Evaluation noteNo assessment information [facility] Work Phone: evaluation note* Diagnosis Onset Date Resolution Status Chest pain acute Hx of right BKA acute Hypertensive emergency acute Diabetes mellitus chronic Tobacco abuse chronic [facility] Work Phone: evaluation note* Diagnosis Proliferative diabetic retinopathy of both eyes associated with type 2 diabetes mellitus, unspecified proliferative retinopathy type (HCC)- Primary [facility] [employer] Other evaluation note* Diagnosis Disability examination- Primary Issue of medical certificate for disability examination 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, unspecified whether buttermaker continuous churn insulin use (HCC) Type 2 diabetes mellitus with proliferative diabetic retinopathy of left eye without macular edema, unspecified whether buttermaker continuous churn insulin use (HCC) Myopia, bilateral Myopia Regular astigmatism, bilateral Presbyopia [facility] Proliferative diabetic retinopathy of both [...] Resolution Status FRANK (acute kidney injury) ac platinum Dehydration acute CKD (chronic kidney disease) stage 3, GFR 30-59 ml/min chronic Diabetes mellitus chronic Hypertension chronic [facility] Work Phone: evalumpuww note* Diagnosis Proliferative diabetic retinopathy of both [...] d Hypoglycemia resolved Hypothermia resolved Leukocytosis resolved [facility] Work Phone: Evaluation note* Diagnosis Proliferative [...] Below knee amputation Hospitalization History see above [facility] Other Hospital Discharge [facility] Work Phone: Summary Purpose Family History No [...] p Communication Suzan Minor Parent Supplemental (Other) Len ion Maker Tiffanie Minor Child Secondary Decision [...] To Contact Closed Radiology Diagnoses 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 (HCC) Procedures CTA ABDOMINAL [place]ORT[place] [address] [place] [address] Specialty Diagnoses / Procedures Referred By Contac t Referred To Contact Infusion Services Diagnoses Proliferative diabetic retinopathy of both eyes associated with type 2 diabetes mellitus, unspecified proliferative retinopathy type (HCC) Demetri Frank MD [address] [place] [address] S [employer] [address] [place] [address] Referral ID Status Reason Start Date Expiration Date V isits Requested Visits Authorized [id number] Pending Review 03/21/2022 03/21/2023 14 14 Question [...] intradermal (PPD) (CVX=96) Assessments Diagnosis 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 Transferred from chair to bed without difficulty z2 person assist. While going over procedural consent, another RN answered a phone call from Juli at Dr. Pittman's office instructed us to have the patient [...] loss Fluid Accumulation: No significant fluid accumulation Medical Education Specialist Strength: Not Performed Estimated Daily Nutrient Needs: Energy (kcal): 5427-7825 kcals @ 13-15 kcal/kg; Weight Used for Energy Requirements: Admission(133 kg) Protein (g): 84-97 g protein @ 1.3-1.5 g/kg IBW; Weight Used for Protein Requirements: [place](65 kg) Fluid (ml/day): ~1950 @ 30 ml/kg [...] 214 lb (97.1 kg)((2019); 236# ( 11/03)) [place] Body Weight: 142 lbs; BMI: 47 BMI [...] AM EDT Wound Ostomy Continence Nursing This [facility] Nurse asked by Dr. Galarza and [...] wound evaluation. No other needs from this [facility] Nurse at this time. documented in this encounter Hospital Course * Kaiser Galarza MD - 12/29/2020 11:11 AM EDT Hospital Medicine Discharge Summary Chandler Minor : 1970 Admit date: 12/28/2020 Discharge date: 12/29/2020 Admitting Physician: Kaiser Galarza MD Primary Care Physician: Fadi Tenorio, , DO Discharge Diagnoses: Right superficial femoral artery [...] by the following consultants while admitted to [facility]: Consults: IP CONSULT TO VASCULAR SURGERY Significant Diagnostic Studies: Refer to chart Please refer to chart if no studies are shown here No results found. Discharge Medications: Chandler Minor Home Medication Instructions FLORENTIN:[id number] Printed on:12/29/20 1111 Medication Information amLODIPine (NORVASC) [...] daily Disposition: If discharged to Home, Any [facility] needs that were indicated and/or required as [...] plan answering questions with patient. Signed: Kaiser aGlarza 12/29/2020, 11:11 AM Chandler Minor, documented in [...] at most local grocery stores, pharmacies, and [employer]. If you have any questions about your [...] Full Code Advance Directives: Admitting Physician: Kaiser Galaraz MD PCP: Fadi Tenorio Sr, DO Discharging Nurse: ITZ Discharging Hospital Unit/Room#: W194/W194-01 Discharging Unit Phone Number: [phone] Emergency Contact: Extended Emergency Contact Information Primary Emergency Contact: Tiffanie Minor Relation: Child Preferred language: Yakut Wire Coating Operator Metal needed? No Secondary Emergency Contact: Suzan Minor Relation: Parent Preferred language: Yakut Wire Coating Operator Metal needed? No Past Surgical History: Past Surgical [...] Assisted Dressing Assisted Toileting Assisted Feeding Independent Health Support Specialist Assisted Med Delivery whole Wound Care Documentation [...] select all that are sent with patient): {[facility] DME Belongings:[id number]:::[id number]} RN SIGNATURE: CASE MANAGEMENT/SOCIAL WORK SECTION Inpatient Status Date: Readmission Risk Assessment Score: Readmission Risk Risk of Unplanned Readmission: 15 Discharging to Facility/ Agency Name: [facility] Address:[address] [place] [address] Fax: Dialysis Facility (if applicable) Name: Address: Dialysis Schedule: Phone: Fax: Credit Product Analyst/Drapery Cutter signature: PHYSICIAN SECTION Prognosis: Good Condition at [...] who returns following recent non- ST elevation NE, cardiac catheterization revealed severe LAD disease throughout [...] content) DATE CREATED AUTHOR 01/16/2019 [facility] DATE CREATED AUTHOR AUTHOR'S ORGANIZ ATION 12/30/2020 [facility] DATE CREATED AUTHOR AUTHOR'S ORGANIZ ATION 03/08/2022 [facility] DATE CREATED AUTHOR AUTHOR'S ORGANIZ ATION 09/04/2022 [facility] DATE CREATED AUTHOR AUTHOR'S ORGANIZ ATION 03/23/2023 [facility] DATE CREATED AUTHOR AUTHOR'S ORGANIZ ATION 09/19/2023 [facility] DATE CREATED AUTHOR AUTHOR'S ORGANIZ ATION 10/18/2023 [facility] DATE CREATED AUTHOR AUTHOR'S ORGANIZ ATION 11/08/2023 [facility] DATE CREATED AUTHOR AUTHOR'S ORGANIZ ATION 11/22/2023 [facility] Reason for Visit (unrecogniz ed section and content) Status Reason Specialty Diagnoses / Procedures Referre d By Contact Referred To Contact Closed Radiology Diagnoses 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 (HCC) Procedures CTA ABDOMINAL AORTA [place] BIL[place] [address] [place] [address] Status Reason Specialty Diagnoses / Procedures Referre d By Contact Referred To Contact [facility] Reason Comments Other sent from cardiac, n eeds to be admitted, vascular issue rle Status Reason Specialty Diagnoses / Procedures Referred By Contact Referred To Contact Diagn[place] [address] [place] [address] [facility] Reason Onset Date Comments Other sympt/complt of eye 02/12/2022 Reason Comments Diabetic Eye Exam Reason Comments Disability Evaluation Specialty Diagnoses / Procedures Referred By Jay mai Referred To Contact Optometry / OPHTHALMOLOGY Diagnoses [place] Disability Exam (Case#[id number]) Procedures NEW ADULT Self LeslieerVj II, OD [address] [place] [address] Referral ID Status Reason Start Date Expiration Date Visits Re quested Visits Authorized [id number] Closed 09/03/2022 09/03/2022 1 1 Reason Comments [...] Status: Active Member Role Status Juan Tenorio , Primary Care Provider Active Team Status: Inactive Member Role Status Juan Tenorio , DO Primary Care Provider Active Mario Phillips , Emergency Provider Active Jonn Wallace MD Admit Provider, Attending Edinson terarzas Active Shavonne Mittal RN Other Provider Active [...] Active Team Status: Active Member Role Status Fadi Tenorio DO Primary Care Provider Active Mika Das APRN Attending Provider Active Capacitor Repairer Relationship Specialty Start Date End Date Rober Lopes MD [address] [place] [address]87 Physician Ophthalmology 07/19/20 Raul Chamberlain MD [address] [place] [address] [id number] Resident Ophthalmology 07/19/20 Agustin Hampton MD [address] [place] [address] 09754 Resident Ophthalmology 11/18/21 Capacitor Repairer Relationship Specialty Start Date End Date Rober Lopes MD [address] [place] [address] 27982 Physician Ophthalmology 07/19/20 Raul Chamberlain MD [address] [place] [address] [place] [address] Resident Ophthalmology 07/19/20 Agustin Hampton MD [address] [place] [address] 54[address] Resident Ophthalmology 11/18/21 Capacitor Repairer Relationship Specialty Start Date End Date Rober Lopes MD [address] [place] [address] 76708 Physician Ophthalmology 07/19/20 Raul Chamberlain MD [address] [place] [address] [place] [address] Resident Ophthalmology 07/19/20 Agustin Hampton MD [address] [place] [address] 54174 Resident Ophthalmology 11/18/21 Capacitor Repairer Relationship Specialty Start Date End Date Rober Lopes MD [address] [place] [address] 52727 Physician Ophthalmology 07/19/20 Raul Chamberlain MD [address] [place] [address] [place] [address] Resident Ophthalmology 07/19/20 Agustin Hampton MD [address] [place] [address] 46722 Resident Ophthalmology 11/18/21 Capacitor Repairer Relationship Specialty Start Date End Date Rober Lopes MD [address] [place] [address] 19939 Physician Ophthalmology 07/19/20 Raul Chamberlain MD [address] [place] [address] [place] [address] Resident Ophthalmology 07/19/20 Agustin Hampton MD [address] [place] [address] 44759 Resident Ophthalmology 11/18/21 Team Status: Inactive Member Role Status Dates Fadi Tenorio , DO Primary Care Provider Active Sinan Holly , Emergency Provider Active Suzan Bennett MD RES Active Capacitor Repairer Relationship Specialty Start Date End Date Rober Lopes MD [address] [place] [address] 19932 Physician Ophthalmology 07/19/20 Raul Chamberlain MD [address] [place] [address] [place] [address] Resident Ophthalmology 07/19/20 Agustin Hampton MD [address] [place] [address] 98747 Resident Ophthalmology 11/18/21 Demetri Frank MD [address] [place] [address] 56580 Physician Ophthalmology 04/14/22 Capacitor Repairer Relationship Specialty Start Date End Date Rober Lopes MD [address] [place] [address] 06506 Physician Ophthalmology 07/19/20 Raul Chamberlain MD [address] [place] [address] [place] [address] Resident Ophthalmology 07/19/20 Agustin Hampton MD [address] [place] [address] 00626 Resident Ophthalmology 11/18/21 Demetri Frank MD [address] [place] [address] 19961 Physician Ophthalmology 04/14/22 Capacitor Repairer Relationship Specialty Start Date End Date Rober Lopes MD [address] [place] [address] 29878 Physician Ophthalmology 07/19/20 Raul Chamberlain MD [address] [place] [address] [place] [address] Resident Ophthalmology 07/19/20 Agustin Hampton MD [address] [place] [address] 00683 Resident Ophthalmology 11/18/21 Demetri Frank MD [address] [place], [place] [id number] Physician Ophthalmology 04/14/22 Capacitor Repairer Relationship Specialty Start Date End Date Rober Lopes MD [address] [place] [address] 14513 Physician Ophthalmology 07/19/20 Raul Chamberlain MD [address] [place] [address] [place] [address] Resident Ophthalmology 07/19/20 Agustin Hampton MD [address] [place] [id number] Resident Ophthalmology 11/18/21 Demetri Frank MD [address] [place] [address] Physician Ophthalmology 04/14/22 Team Status: Inactive Member Role Status Dates Fadi Tenorio , DO Primary Care Provider Active Kameron Dos Santos , DO Attending Provider Active Albert Woods , DO Admit Provider Active Nkechi Kc MD Other Provider Active Capacitor Repairer Relationship Specialty Start Date End Date Rober Lopes MD [address] [place] [id number] Physician Ophthalmology 07/19/20 Raul Chamberlain MD [address] [facility] [place] [address] Resident Ophthalmology 07/19/20 Agustin Hampton MD [address] [place] [address] Resident Ophthalmology 11/18/21 Demetri Frank MD [address] [place] [address] Physician Ophthalmology 04/14/22 Team Status: Active Member [...] Active Harjeet Ruelas MD Attending Provider Active Capacitor Repairer Relationship Specialty Start Date End Date Rober Lopes MD [address] [place], [place] [id number] Physician Ophthalmology 07/19/20 Raul Chamberlain MD [address] [facility] [address] Resident Ophthalmology 07/19/20 Agustin Hampton MD [address] [place] [address] Resident Ophthalmology 11/18/21 Demetri Frank MD [address] [place], [place] [id number] Physician Ophthalmology 04/14/22 Capacitor Repairer Relationship Specialty Start Date End Date Rober Lopes MD [address] [place] [address] Physician Ophthalmology 07/19/20 Raul Chamberlain MD [address] [place] [address] Resident Ophthalmology 07/19/20 Agustin Hampton MD [address] [place] [address] Resident Ophthalmology 11/18/21 Demetri Frank MD [address] [place], [place] [id number] Physician Ophthalmology 04/14/22 Goals (unrecognized section and [...] or prosecute any alcohol or drug abuse patient.[facility] FOR RECORDS PERTAINING TO PATIENTS WHO ARE [...] BE BASED ON THE PRIMARY CLINICAL RECORDS. [facility] [employer] [facility]. provides no warranty or guarantee of the accuracy or completeness of information in this document.
[2023-11-28] MEDS: PIPERACILLIN SODIUM/TAZOBACTAM 3.375 GM in 0.9 % SODIUM CHLORIDE 50 ML IV (18:50)
[2023-11-28 19:00] LABS: Glucometer 384 mg/dL (74-106)
[2023-11-28] MEDS: VANCOMYCIN HCL 1,500 MG in 0.9 % SODIUM CHLORIDE 500 ML 250 MG IV (20:46)
[2023-11-28] MEDS: 0.9 % SODIUM CHLORIDE 1,000 ML 125 ML IV (20:46)
[2023-11-28] MEDS: INSULIN ASPART 300 UNIT/3 ML PEN SUBQ (21:33)
[2023-11-28 21:34] LABS: Glucometer 312 mg/dL (74-106)
[2023-11-28] MEDS: TRAZODONE HCL 50 MG TABLET PO (23:12)
[2023-11-28 23:15] LABS: Glucometer 236 mg/dL (74-106)
[2023-11-29] VITALS (72 sets, daily range): BP systolic 166–172; BP diastolic 78–95; PULSE 66–84; RESP 6–23
[2023-11-29 01:29] LABS: Glucometer 180 mg/dL (74-106)
[2023-11-29] MEDS: PIPERACILLIN SODIUM/TAZOBACTAM 3.375 GM in 0.9 % SODIUM CHLORIDE 50 ML IV ×2 (02:19→11:23)
[2023-11-29 04:00] LABS: Glucometer 188 mg/dL (74-106)
[2023-11-29 05:12] LABS: Basophils Percent Auto 0.5 % (0.2-2.0); Eosinophils Absolute Auto 0.3 10^3/uL (0.0-0.7); Eosinophils Percent Auto 3.7 % (0.9-7.0); Hematocrit 31.6 % (42.0-54.0); Hemoglobin 10.7 g/dL (14.0-18.0); Immature Granulocytes Abs Auto 0.07 10^3/uL (0.00-0.03); Immature Granulocytes Pct Auto 0.8 % (0.0-0.5); Lymphocytes Absolute Auto 1.9 10^3/uL (1.2-3.8); Lymphocytes Percent Auto 22.5 % (20.5-60.0); Mean Corpuscular HGB Conc 33.9 g/dL (29.9-35.2); Mean Corpuscular Hemoglobin 31.5 pg (25.9-34.0); Mean Corpuscular Volume 92.9 fL (80.0-94.0); Mean Platelet Volume 11.1 fL (9.5-13.5); Monocytes Absolute Auto 0.7 10^3/uL (0.3-0.8); Monocytes Percent Auto 8.6 % (1.7-12.0); Neutrophils Absolute Auto 5.4 10^3/uL (1.4-6.5); Neutrophils Percent Auto 63.9 % (43.0-75.0); Platelet Count 186 10^3/uL (150-450); White Blood Count 8.5 10^3/uL (4.0-11.0)
[2023-11-29] MEDS: 0.9 % SODIUM CHLORIDE 1,000 ML 125 ML IV (05:45)
[2023-11-29 05:58] LABS: Alanine Aminotransferase 19 U/L (16-63); Albumin Globulin Ratio 0.8; Albumin Level 2.8 g/dL (3.4-5.0); Alkaline Phosphatase 121 U/L (46-116); Anion Gap 14.1; Aspartate Amino Transferase 14 U/L (15-37); Bilirubin Total 0.4 mg/dL (0.2-1.0); Calcium 8.5 mg/dL (8.5-10.1); Carbon Dioxide 23.9 mmol/L (21.0-32.0); Chloride 105 mmol/L (98-107); Estimated GFR (African America 31 (>=60); Estimated GFR (Non-African Ame 25 (>=60); Globulin 3.3 g/dL; Glucose 130 mg/dL (74-106); Sodium 139 mmol/L (136-145); Total Protein 6.1 g/dL (6.4-8.2)
[2023-11-29 06:24] LABS: Glucometer 112 mg/dL (74-106)
--- NOTE | 2023-11-29 08:28 | P.CN_ITS ---
Consult Note: [facility] Data of Consult Consult date: 11/29/23 Requesting Physician: Harvinder Rivas MD Primary Care Provider: DONITA TENORIO Consult Narrative Reason for consult: Left foot lesion Narrative: Patient is a 53M with uncontrolled T2DM and 30 pack year smoking history (current every day smoker) who has been seen in our wound center previously. 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 October 2023 noninvasive vascular studies of left lower extremity showed normal CLINT & TBI. He was brought to the ER yesterday due to altered mental status and was found to have blood sugar of >700 and has not been compliant with diabetic medications. it was noted in the Emergency Room that there was a lesion on left medial forefoot with erythema. No leukocytosis and x-rays were negative for soft tissue emphysema, trauma and bony destruction. He has been afebrile and hypertensive otherwise hemodynamically stable. He was admitted to the hospitalist for hyperglycemia was placed to the ICU. at bedside patient is sleeping and easily aroused. He notes mild tenderness over the medial aspect of the 1st metatarsal head on the left foot. He denies any drainage but relates to a blister which is since dried. He denies any trauma to the area and has no other complaints regarding his foot. he denies chest pain, nausea/vomiting, shortness of breath, fever, calf pain. He does admit to malaise and feeling tired/exhausted and headache. cc:: CC: Harvinder Rivas MD Review of Systems ROS Status of ROS 10 or more systems reviewed and unremark able except as noted in history and below [facility] Medical History Hyperglycemia ?R73.9 - Hyperglycemia, unspecified (ICD-10) Strain of lumbar region ?S39.012A - Strain of muscle, fascia and tendon of lower back, initial encounter (ICD-10) Acute renal failure ?N17.9 - Acute kidney failure, unspecified (ICD-10) Social History Smoking status: Current every day smoker Meds Home Medications and Allergies Home Medications Medication Instructions Recorded Confirmed Type atorvastatin 80 mg tablet 80 mg PO DAILY 11/28/23 11/28/23 History bumetanide 2 mg tablet 2 mg PO BID 11/28/23 11/29/23 History carvedilol 25 mg tablet 25 mg PO BID 11/28/23 11/29/23 History citalopram 20 mg tablet 20 mg PO DAILY 11/28/23 11/28/23 History clopidogrel 75 mg tablet 75 mg PO DAILY 11/28/23 11/28/23 History isosorbide mononitrate 60 mg 60 mg PO DAILY 11/28/23 11/28/23 History tablet,extended release 24 hr levothyroxine 25 mcg tablet 25 mcg PO DAILY 11/28/23 11/28/23 History losartan 50 mg tablet 50 mg PO DAILY 11/28/23 11/28/23 History omeprazole 20 mg capsule,delayed 20 mg PO DAILY 11/28/23 11/28/23 History release potassium chloride 20 mEq 20 meq PO DAILY 11/28/23 11/28/23 History tablet,extended release(part/cryst) ropinirole 2 mg tablet 2 mg PO TID 11/28/23 11/29/23 History tamsulosin 0.4 mg capsule 0.4 mg PO Q24H 11/28/23 11/28/23 History terazosin 2 mg capsule 2 mg PO DAILY 11/28/23 11/28/23 History trazodone 50 mg tablet 50 mg PO .QHS 11/28/23 11/28/23 History Allergies Allergy/AdvReac Type Severity Reaction Status Date / Time promethazine [From Phenergan] AdvReac Mild Verified 05/21/23 16:15 Exam Narrative Exam Narrative: skin: There is subdermal bleeding over a callus over the medial eminence of the 1st metatarsal head. Partial thickness skin tear consistent with ruptured blister. Blanchable erythema is localized and circumferential around the callus approximately 3 cm. Neuro: Light touch sensation is intact to the dorsal/plantar LEFT foot and there is no pain on torsion. Negative Tinel's. Protective sensation is diminished vascular: pedal pulses are palpable. Absent digital hair growth. No significant swelling and intact skin wrinkles. no calf Pain on squeeze Musculoskeletal: no fluctuance. Mild to moderate bunion deformity on the left fo ot with prominence of the medial eminence which is mildly tender on direct palpation. ROM of the toe elicits no pain and there is no pain out of proportion Constitutional Vital Signs, click to edit/add: Last Vital Signs Temp 98.2 F 11/28/23 20:51 Pulse 72 11/29/23 06:50 Resp 12 11/29/23 06:50 BP 172/95 H 11/29/23 05:00 Pulse Ox 99 11/28/23 20:51 O2 Del Method Room Air 11/28/23 20:51 Results Labs Labs: Short CBC 11/28/23 11/29/23 Range/Units 16:10 05:00 WBC 8.9 8.5 (4.0-11.0) 10^3/uL Hgb 11.5 L 10.7 L (14.0-18.0) g/dL Hct 33.2 L 31.6 L (42.0-54.0) % Plt Count 217 186 (150-450) 10^3/uL BMP 11/28/23 11/29/23 16:10 05:00 Sodium 126 L 139 Potassium 4.9 4.0 Chloride 90 L 105 Carbon Dioxide 24.3 23.9 BUN 58.0 H 53.0 H Creatinine 3.15 H 2.65 H Glucose 720 H* 130 H Calcium 9.0 8.5 Liver Function 11/28/23 11/29/23 Range/Units 16:10 05:00 Total Bilirubin 0.6 0.4 (0.2-1.0) mg/dL Direct Bilirubin 0.1 (0.0-0.2) mg/dL AST 12 L 14 L (15-37) U/L ALT 25 19 (16-63) U/L Alkaline Phosphatase 208 H 121 H (46-116) U/L Albumin 3.5 2.8 L (3.4-5.0) g/dL Urine 11/28/23 Range/Units 17:35 Urine Color Lt. yellow (YELLOW) Urine Clarity Clear (CLEAR) Urine pH 6.5 (5.0-9.0) Ur Specific Marlow 1.010 (1.005-1.025) Urine Protein 100 A (NEG/TRACE) mg/dL Urine Glucose (UA) >=1000 A (NEGATIVE) mg/dL ABG ABG results: 11/28/23 17:56 VBG pH 7.477 H VBG pCO2 29.0 L Attestation: I have reviewed the pertinent ABG results. Pulse Oximetry Attestation: I have reviewed the pertinent pulse oximetry results. ECG Attestation: ?I have reviewed the pertinent ECG results. Additional Findings Additional findings: x-rays of his left foot were reviewed and I agree with the radiologist's interpretation of no acute bony destruction or evidence of soft tissue emphysema. Hallux valgus deformity is noted Assessment and Plan Assessment and Plan (1) Diabetic foot ulcer: Assessment and Plan: the localize blanchable erythema may represent early cellulitis versus irritation/pressure from shoe currently on vancomycin and Zosyn - continue to monitor closely given kidney disease I believe it reasonable to discharge on renal dosed by mouth antibiotics such as Keflex 500 mg q12h but will defer to the hospitalist Qualifiers: Diabetic foot ulcer location: toe Diabetes mellitus type: type 2 Laterality: left Non-pressure ulcer stage: limited to breakdown of skin Qualified Code(s): E11.621 - Type 2 diabetes mellitus with foot ulcer; L97.521 - Non-pressure chronic ulcer of other part of left foot limited to breakdown of skin (2) Type 2 diabetes mellitus with hyperglycemia: (3) FRANK (acute kidney injury): (4) Benign essential hypertension: (5) Chronic heart failure with preserved ejection fraction (HFpEF): (6) Noncompliance with medication regimen: (7) Peripheral arterial disease: (8) CAD (coronary artery disease): (9) CKD (chronic kidney disease) stage 4, GFR 15-29 ml/min: Plan patient seen and evaluated at bedside. Patient is extremely medically complicated and noncompliant. Fortunately there is no evidence of deep space infection or need for surgery at this time Did communicate with Dr. Rivas regarding the plan involving his left foot I also communicated with wound nurse, Caroline Bertrand RN regarding the plan the ruptured blister does have subdermal bleeding and the skin tear appears to be healing appropriately. A Band-Aid if anything could be placed over this area but would avoid circumferential dressings Follow-up in the wound center within one week Will sign off but please call with updates or changes in patients course regarding his left foot/lower extremity
[2023-11-29 08:52] LABS: Glucometer 89 mg/dL (74-106)
--- NOTE | 2023-11-29 10:49 | CM.NOTE ---
Rounds made with Dr. Rivas, pt may discharge to home today after PT and OT to evaluate pt.
[2023-11-29] MEDS: CARVEDILOL 25 MG TABLET PO (10:53)
[2023-11-29] MEDS: ROPINIROLE HCL 1 MG TABLET 2 MG PO (10:53)
[2023-11-29] MEDS: ISOSORBIDE MONONITRATE 60 MG TAB.ER.24H PO (10:53)
[2023-11-29] MEDS: BUMETANIDE 1 MG TABLET 2 MG PO (10:54)
[2023-11-29] MEDS: TAMSULOSIN HCL 0.4 MG CAPSULE PO (10:54)
[2023-11-29] MEDS: POTASSIUM CHLORIDE 10 MEQ ER TABLET 20 MEQ PO (10:54)
[2023-11-29] MEDS: LEVOTHYROXINE SODIUM 25 MCG TABLET PO (10:54)
[2023-11-29] MEDS: CITALOPRAM HYDROBROMIDE 20 MG TABLET PO (10:54)
[2023-11-29] MEDS: CLOPIDOGREL BISULFATE 75 MG TABLET PO (10:55)
[2023-11-29] MEDS: OMEPRAZOLE 20 MG CAPSULE.DR PO (10:55)
[2023-11-29] MEDS: TERAZOSIN HCL 1 MG CAPSULE 2 MG PO (10:55)
[2023-11-29] MEDS: LOSARTAN POTASSIUM 50 MG TABLET PO (10:55)
--- NOTE | 2023-11-29 11:25 | P.HP_ITS ---
H&P: HPI History of Present Illness Chief complaint: CVA SYMPTOMS Hyperglycemia medication non complani Narrative: 53 y/o male to ER with altered mental status. Patient was in kitchen and suddenly became confused. Not responding or talking and sat in chair. To ER and found glucose 720. Patient doesn't remember event or coming to ER. WBC and UA normal. Given IV fluids and IV insulin. Labs showed normal anion gap and not DKA. Chest x-ray normal. Noted left diabetic foot ulcer and admitted. Started IV fluids and subcutaneous insulin. Glucose quickly improved and 342 on admission to ICU. Podiatry consulted. Resumed home medication. Patient reports not taking medication for months. Patient has insulin at home but not using. BS improved this am and patient back to baseline. Review of Systems ROS Constitutional Denies: fever, chills or night sweats Cardiovascular Denies: chest pain, palpitations or edema Respiratory Denies: shortness of breath, cough or wheezing Gastrointestinal Denies: abdominal pain, nausea, vomiting or diarrhea Genitourinary Denies: painful urination [facility] Medical History Hyperglycemia ?R73.9 - Hyperglycemia, unspecified (ICD-10) Strain of lumbar region ?S39.012A - Strain of muscle, fascia and tendon of lower back, initial encounter (ICD-10) Acute renal failure ?N17.9 - Acute kidney failure, unspecified (ICD-10) Social History Smoking status: Current every day smoker Meds Home Medications and Allergies Home Medications Medication Instructions Recorded Confirmed Type atorvastatin 80 mg tablet 80 mg PO DAILY 11/28/23 11/28/23 History bumetanide 2 mg tablet 2 mg PO BID 11/28/23 11/29/23 History carvedilol 25 mg tablet 25 mg PO BID 11/28/23 11/29/23 History citalopram 20 mg tablet 20 mg PO DAILY 11/28/23 11/28/23 History clopidogrel 75 mg tablet 75 mg PO DAILY 11/28/23 11/28/23 History isosorbide mononitrate 60 mg 60 mg PO DAILY 11/28/23 11/28/23 History tablet,extended release 24 hr levothyroxine 25 mcg tablet 25 mcg PO DAILY 11/28/23 11/28/23 History losartan 50 mg tablet 50 mg PO DAILY 11/28/23 11/28/23 History omeprazole 20 mg capsule,delayed 20 mg PO DAILY 11/28/23 11/28/23 History release potassium chloride 20 mEq 20 meq PO DAILY 11/28/23 11/28/23 History tablet,extended release(part/cryst) ropinirole 2 mg tablet 2 mg PO TID 11/28/23 11/29/23 History tamsulosin 0.4 mg capsule 0.4 mg PO Q24H 11/28/23 11/28/23 History terazosin 2 mg capsule 2 mg PO DAILY 11/28/23 11/28/23 History trazodone 50 mg tablet 50 mg PO .QHS 11/28/23 11/28/23 History cephalexin 500 mg capsule 500 mg PO QID 10 days #40 caps 11/29/23 Rx insulin aspart U-100 100 unit/mL 3 - 15 unit (0.03 - 0.15 mL) 11/29/23 Rx (3 mL) subcutaneous pen (Novolog subcut ACHS #0 mL FlexPen U-100 Insulin aspart) Allergies Allergy/AdvReac Type Severity Reaction Status Date / Time promethazine [From Phenergan] AdvReac Mild Verified 05/21/23 16:15 Exam Constitutional Vital Signs, click to edit/add: Last Vital Signs Temp 98.2 F 11/28/23 20:51 Pulse 72 11/29/23 06:50 Resp 12 11/29/23 06:50 BP 172/95 H 11/29/23 05:00 Pulse Ox 99 11/28/23 20:51 O2 Del Method Room Air 11/28/23 20:51 Documenting provider has reviewed patient's vital signs: yes Common normals: no apparent distress, oriented x3 and alert HENMT Common normals: normocephalic Eye Common normals: PERRL and EOMs intact bilaterally Respiratory Common normals: normal respiratory effort and clear to auscultation bilaterally Cardio Common normals: regular rate, regular rhythm, no gallops, no murmurs and no rub GI Common normals: Normal to inspection, nondistended, normoactive bowel sounds pre sent and non-tender Extremity Common normals: no pedal edema Left lower extremity: foot and digits Other: Small ulcer with callus on left foot Results Labs Labs: Short CBC 11/28/23 11/29/23 Range/Units 16:10 05:00 WBC 8.9 8.5 (4.0-11.0) 10^3/uL Hgb 11.5 L 10.7 L (14.0-18.0) g/dL Hct 33.2 L 31.6 L (42.0-54.0) % Plt Count 217 186 (150-450) 10^3/uL BMP 11/28/23 11/29/23 16:10 05:00 Sodium 126 L 139 Potassium 4.9 4.0 Chloride 90 L 105 Carbon Dioxide 24.3 23.9 BUN 58.0 H 53.0 H Creatinine 3.15 H 2.65 H Glucose 720 H* 130 H Calcium 9.0 8.5 Liver Function 11/28/23 11/29/23 Range/Units 16:10 05:00 Total Bilirubin 0.6 0.4 (0.2-1.0) mg/dL Direct Bilirubin 0.1 (0.0-0.2) mg/dL AST 12 L 14 L (15-37) U/L ALT 25 19 (16-63) U/L Alkaline Phosphatase 208 H 121 H (46-116) U/L Albumin 3.5 2.8 L (3.4-5.0) g/dL Urine 11/28/23 Range/Units 17:35 Urine Color Lt. yellow (YELLOW) Urine Clarity Clear (CLEAR) Urine pH 6.5 (5.0-9.0) Ur Specific [place]itt 1.010 (1.005-1.025) Urine Protein 100 A (NEG/TRACE) mg/dL Urine Glucose (UA) >=1000 A (NEGATIVE) mg/dL ABG ABG results: 11/28/23 17:56 VBG pH 7.477 H VBG pCO2 29.0 L Assessment and Plan Assessment and Plan (1) Diabetic foot ulcer: Qualifiers: Diabetic foot ulcer location: toe Diabetes mellitus type: type 2 Laterality: left Non-pressure ulcer stage: limited to breakdown of skin Qualified Code(s): E11.621 - Type 2 diabetes mellitus with foot ulcer; L97.521 - Non-pressure chronic ulcer of other part of left foot limited to breakdown of skin (2) Type 2 diabetes mellitus with hyperglycemia: (3) FRANK (acute kidney injury): (4) Benign essential hypertension: (5) Chronic heart failure with preserved ejection fraction (HFpEF): (6) Noncompliance with medication regimen: (7) Peripheral arterial disease: (8) CAD (coronary artery disease): (9) CKD (chronic kidney disease) stage 4, GFR 15-29 ml/min: Plan Presented with altered mental status and glucose over 700 but quickly improved with IV fluids and subcutaneous insulin. Noted diabetic foot ulcer and podiatry felt stable and could be managed as outpatient. Discharge home. Will take keflex for infection and follow up with wound care. Resume home medication including insulin. Need to follow up with PCP in 2-5 days.
[2023-11-29 11:49] LABS: Glucometer 188 mg/dL (74-106)
--- OUTSIDE RECORDS SUMMARY | 2023-11-29 12:07 | XMS_ITS | CCD ---
Author Name Unknown Address [address] [place] [address] Organization [facility] Care Team Providers Care Cnc Grinder Name Role Phone Fatoumata Tirado Admitting Unavailable [...] Care Provider DO Mario Phillips Emergency Provider [phone] MD Jonn Wallace Admit Provider MD Jonn Wallace Attending Provider DO Fadi Tenorio Primary Care Provider DO Mario Phillips Emergency Provider MD Jonn Wallace Admit Provider MD Jonn Wallace Attending Provider [phone] TANYA Mittal Other Provider Unavailable DO Leann [...] Provider HUMBERTO Dasmaria teresa Baez Attending Provider Holly, DO Sinan Wilkes Emergency Provider Unavailable Primary [...] Admitting Unavailable RODERICK ., ALDO Attending Unavailable SCENIC, DR DUCKWORTH Primary Care Unavailable HAY ., DR SHERMAN Consulting Unavailable FAWWAD, SHAIKH Amada Consulting Unavailable DANDY, ANIBAL Consulting Unavailable LAZLOTTIE Consulting Unavailable SISTER, JESSICA Consulting Unavailable RODERICK ., ALDO Consulting Unavailable NEWATIA, SAMANTHA Consulting Unavailable BARAZI, TONY Consulting Unavailable FEIJUAN LUIS BARTH Consulting Unavailable COBY, DR DUCKWORTH Primary Care Unavailable SCENIC, DR DUCKWORTH Admitting Unavailable SCENIC, DR DUCKWORTH Attending Unavailable COBY, DR DUCKWORTH [...] Unavailable DO Fadi Tenorio Primary Care Provider [phone] DO Kameron Dos Santos Attending Provider [phone] DO Albert Woods Admit Provider [phone] MD Nkechi Kc Other Provider Vivian FLAHERTY, Demetri Unavailable [phone] DO Christopher Santiago Emergency Provider None, DO Doctor Primary Care Provider UnavailDO Chava Veras Attending Provider [phone] MD Helen Jovel Admit Provider MD Helen Jovel Attending Provider [phone] MD Radha Bell Other Provider MD Kan Granger Other Provider MD Jose Maria Lopez Other Provider MD Geovani Hebert Other Provider MD Elvin Lyles Other Provider DO Manda Scott Other Provider MD Marcelino Abel Other Provider MD Steve Block Other Provider MD Agus Morrison Other Provider MD Harjeet Ruelas Attending Provider [phone] Marcelino Abel Attending Unavailable Radha Bell Consulting Unavailable Helen Jovel Admitting Unavailable Kan Granger Consulting Unavailable Jose Maria Lopez Consulting Unavailable Geovani Hebetr Consulting Unavailable Elvin Lyles Consulting Unavailable Manda [...] Unavailable COBY, FADI Neves Primary Care Unavailable COYB, FADI P Primary Care Unavailable Remi Iyer [...] Unavailable Coby, Fadi Primary Care Unavailable [employer] Consulting Unavailable Kameron Dos Santos Attending Unavailable Albert Woods Admitting Unavailable Fadi Tenorio Primary Care Unavailable Mika Das Admitting Unavailable Mika Das Attending Unavailable Allergies Allergy Classification Reported Allergen(s) Allergy Type Date of Onset Reaction(s) Facility (2 sources) Promethazine; Translations: [Phenergan] Drug Allergy 6 [facility] Repository (20 sources) Promethazine; Translations: [promethazine] Drug Allergy 6 Other: See Comments [employer] Phone: (2 sources) Promethazine Drug Allergy 3 [facility] Repository Medications Current Medications Medication Drug [...] UP TO 7 DAYS 0 10/08/2020 Active [id number] 200 actuat albuterol 0.09 mg/actuat metered dose [...] Inhalation Q4H December 24, 2019 10:24am 12-24-2019 [facility] ([id number]) 0 12/24/2019 Active Start: 12-18-2019 End: 01-27-2021 [...] Start: 01-27-2021 take 2 tablets [facility] daily vitamin C (ASCORBIC ACID) 500 [...] D2) 1,250 mcg (50,000 unit) Capsule Active 29937 UNIT ORAL Every Week August 02, 2023 12:00am Start: 04-11-2023 take 1 capsule by [facility] every week Ergocalciferol 1.25 MG (48960 UT) 1 capsule Orally Q week for [...] daily 60 December 24, 2019 10:24am 12-24-2019 [facility] ([id number]) 0 12/24/2019 Active Start: 12-24-2019 End: 01-27-2021 [...] and bedtime December 24, 2019 10:24am 12-24-2019 [facility] ([id number]) 0 12/24/2019 Active NovoLOG FlexPen 100 UNIT/ML [...] Subcutaneous Daily December 24, 2019 10:24am 12-24-2019 [facility] ([id number]) 0 12/24/2019 Active Start: 12-24-2019 End: 06-21-2021 [...] DO Active take 2 tablets by [facility] once daily at bedtime melatonin 3 MG [...] day by translingual route. 0 Active Pen [place] 5/16 (19 sources) Start: 02-14-2022 Pen [place] 5/ 16 Use with insulin pen needles SQ 6 times per day for 90 days February, Active Start: 02-14-2022 Pen [place] 5/ 16 Use with insulin pen needles SQ 6 times per day for 90 day(s) February, Active Pen [place] 5/16 Use with insulin pen needles SQ 6 times per day for 90 days Active phenylephrine hydrochloride 25 mg/ml ophthalmic solution (1 source) alpha-1 Adrenergic Agonist Start: 09-03-2022 End: 09-04-2022 PHENYLephrine 2.5 % 1 Drop (AK-DILATE, YVES-SYNEPHRINE) polyethylene glycol 3350 24104 mg powder for oral solution (7 sources) [...] 11:20pm Start: 01-27-2021 take 2 tablets by [facility] once daily potassium chloride SA (K-DUR) 20 [...] Oral Daily December 24, 2019 10:24am 12-24-2019 [facility] ([id number]) 0 12/24/2019 Active take 2 tablets by [facility] once daily Potassium Chloride Ria ER 20 [...] 2019 12:00am January 27, 2021 1:52pm sennosides, [facility] 8.6 mg oral tablet (15 sources) Start: 12-24-2019 senna (SENOKOT ) 8.6 MG TABS tablet sennosides, RETIREMENT Sennosides Active 2 TAB Oral DAILY@December 24, 2019 10:24am 12-24-2019 [facility] ([id number]) 0 12/24/2019 Active take 2 tablets by [facility] every twenty-four hours Senna Laxative 8.6 MG [...] Topical Daily December 24, 2019 5:24pm 12-24-2019 [facility] ([id number]) 0 12/24/2019 Active Start: 12-24-2019 bacitracin 500 UNIT/GM ointment Bacitracin Bacitracin Active 1 APPLIC Topical Daily December 24, 2019 5:24pm 12-24-2019 [facility] ([id number]) 0 12/24/2019 Active Bacitracin Activ e bevacizumab [...] Start: 09-26-2020 take 1 capsule by [facility] three times daily pregabalin (LYRICA) 75 MG [...] [Coronary atherosclerosis of unspecified type of vessel, levelock or graft] Onset: 3 Chronic Deficiency and [...] sources) Long-term current use of insulin; Translations: [longterm (current) use of insulin] Episodic Other aftercare (4 sources) longterm (current) use of insulin; Translations: [longterm current use of insulin Z79.4] Onset: 1 Resolved: 2 Episodic Other aftercare (1 source) intermediate manager (current) use of antithrombotics/antiplat elets; Translations: [[facility] ANTITHROMBOT/ANTIPLATLET S] Onset: 3 Episodic Other aftercare (1 source) intermediate manager (current) use of aspirin; 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] Onset: 3 Episodic Other aftercare (1 source) longterm (current) use of oral hypoglycemic drugs; Translations: [[facility] USE ORAL HYPOGLYCEMIC DX] Onset: 3 Episodic Other aftercare (1 source) Other bed bug exterminator (current) drug therapy; Translations: [OTH [facility] CURRENT DRUG THERAPY] Onset: 3 Episodic Other [...] artery of lower limb; Translations: [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 The time was 4:54 PM. Confirmed correct patient, procedure, site, and patient consented. Anesthesia Subconjunctival anesthesia was used. Anesthetic medications included Lidocaine 2%. Procedure Preparation included 5% betadine to ocular surface. A 30 gauge needle was used. Injection Medications: 1.25 mg bevacizumab 1.25MG/0.05 mL Route: Intravitreal Lot: [id number], Expiration date: 09/11/2023 Post-op Post injection exam found visual acuity of at least counting fingers. The patient tolerated the procedure well. There were no complications. Post injection medications were not given. Notes [facility] Radiology Study observation (narrative) [facility] Progress Noteson 09-11-2023 Collar Packer Authentication Interface Message Text Longstanding PDR OU, [...] Dilate OU OCT mac OU Normal [facility] Study observation Right reti na by OCTon 09-11-2023 Right Eye Quality was good. Scan locations included subfoveal. Left Eye Quality was good. Scan locations included subfoveal. Notes OD: stable, thin, no fluid OS: improving view, thin, no fluid [facility] Radiology Study observation (narrative) [facility] Blood Cultureon 08-07-2023 Bacteria identified Cx Nom (Bld) ---- Blood Culture: NG5^NO GROWTH. NG5^Time of report was 120 hours. Normal [facility] Comment on above: Order Comment: Speci men Type: Unknown Relevant Clinical Information: Altered mental status, hypoglycemia, hypothermia Ordering Facility: [facility] Lab-CLIA#[id number] Address: [address] [place] [address] Performed By: #### M G, CMP #### [facility] Lab-CLIA#[id number] CLIA [id number] [address] [place] [address] Phil Franklin DO,FCADELA Absolute lymphocyte countOrd ered By: Helen Jovel on 08-03-2023 Lymphocytes Auto (Unsp spec) [#/Vol] 1.26 10*3/uL 0.80-3.30 [facility] Comment on above: Delta: 0.92 on 08/02 Basophils Auto (Bld) [#/Vol] Ordered By: Helen Jovel on 08-03-2023 Basophils (Bld) [#/Vol] 0.03 10*3/uL 0.00-0.10 [facility] Basophils/100 WBC Auto (Bld) Ordered By: Helen Jovel on 08-03-2023 Basophils/100 WBC (Bld) 0.3 % 0.0-1.3 [facility] Blood hemoglobin measurement (mass/volume)Ordered By: Helen Jovel on 08-03-2023 Hemoglobin (Bld) [Mass/Vol] 11.7 g/dL 13.5-17.7 [facility] Comment on above: Delta: 14.0 on 08/02 CBC w/ Auto Diffon Basophils Absolute Auto 0.03 10*3/uL Normal 0.00-0.10 [facility] Comment on above: Order Comment: Speci men Type: Unknown Relevant Clinical Information: Altered mental status, hypoglycemia, hypothermia Ordering Facility: [facility] Address: , , Performed By: #### G LUCOMETER #### [facility] Basophils/100 WBC (Bld) 0.3 % Normal 0.0-1.3 [facility] Comment on above: Order Comment: Speci men Type: Unknown Relevant Clinical Information: Altered mental status, hypoglycemia, hypothermia Ordering Facility: [facility] Address: , , Performed By: #### G LUCOMETER #### [facility] Eosinophils (Bld) [#/Vol] 0.31 10*3/uL Normal 0.00-0.50 [facility] Comment on above: Order Comment: Speci men Type: Unknown Relevant Clinical Information: Altered mental status, hypoglycemia, hypothermia Ordering Facility: [facility] Address: , , Performed By: #### G LUCOMETER #### [facility] Eosinophils/100 WBC (Bld) 3.0 % Normal 0.0-5.8 [facility] Comment on above: Order Comment: Speci men Type: Unknown Relevant Clinical Information: Altered mental status, hypoglycemia, hypothermia Ordering Facility: [facility] Address: , , Performed By: #### G LUCOMETER #### [facility] Erythrocyte distribution width (RBC) [Ratio] 13.2 % Normal 11.6-14.8 [facility] Comment on above: Order Comment: Speci men Type: Unknown Relevant Clinical Information: Altered mental status, hypoglycemia, hypothermia Ordering Facility: [facility] Address: , , Performed By: #### G LUCOMETER #### [facility] Hematocrit (Bld) [Volume fraction] 34.3 % Low 41.0-53.0 [facility] Comment on above: Order Comment: Speci men Type: Unknown Relevant Clinical Information: Altered mental status, hypoglycemia, hypothermia Ordering Facility: [facility] Address: , , Performed By: #### G LUCOMETER #### [facility] Hemoglobin (Bld) [Mass/Vol] 11.7 g/dL Low 13.5-17.7 [facility] Comment on above: Order Comment: Speci men Type: Unknown Relevant Clinical Information: Altered mental status, hypoglycemia, hypothermia Ordering Facility: [facility] Address: , , Performed By: #### G LUCOMETER #### [facility] Lymphocytes (Bld) [#/Vol] 1.26 10*3/uL Normal 0.80-3.30 [facility] Comment on above: Order Comment: Speci men Type: Unknown Relevant Clinical Information: Altered mental status, hypoglycemia, hypothermia Ordering Facility: [facility] Address: , , Performed By: #### G LUCOMETER #### [facility] Lymphocytes/100 WBC (Bld) 12.2 % Low 13.4-45.1 [facility] Comment on above: Order Comment: Speci men Type: Unknown Relevant Clinical Information: Altered mental status, hypoglycemia, hypothermia Ordering Facility: [facility] Address: , , Performed By: #### G LUCOMETER #### [facility] MCH (RBC) [Entitic mass] 31.5 pg Normal 27.2-33.0 [facility] Comment on above: Order Comment: Speci men Type: Unknown Relevant Clinical Information: Altered mental status, hypoglycemia, hypothermia Ordering Facility: [facility] Address: , , Performed By: #### G LUCOMETER #### [facility] MCHC (RBC) [Mass/Vol] 34.1 g/dL Normal 31.9-35.1 [facility] Comment on above: Order Comment: Speci men Type: Unknown Relevant Clinical Information: Altered mental status, hypoglycemia, hypothermia Ordering Facility: [facility] Address: , , Performed By: #### G LUCOMETER #### [facility] MCV (RBC) [Entitic vol] 92.5 fL Normal 81.7-97.[address] [facility] Comment on above: Order Comment: Speci men Type: Unknown Relevant Clinical Information: Altered mental status, hypoglycemia, hypothermia Ordering Facility: [facility] Address: , , Performed By: #### G LUCOMETER #### [facility] Monocytes (Bld) [#/Vol] 0.77 10*3/uL Normal 0.30-0.90 [facility] Comment on above: Order Comment: Speci men Type: Unknown Relevant Clinical Information: Altered mental status, hypoglycemia, hypothermia Ordering Facility: [facility] Address: , , Performed By: #### G LUCOMETER #### [facility] Monocytes/100 WBC (Bld) 7.5 % Normal 4.0-12.[address] [facility] Comment on above: Order Comment: Speci men Type: Unknown Relevant Clinical Information: Altered mental status, hypoglycemia, hypothermia Ordering Facility: [facility] Address: , , Performed By: #### G LUCOMETER #### [facility] Neutrophils Absolute Auto 7.89 10*3/uL High 1.70-7.00 [facility] Comment on above: Order Comment: Speci men Type: Unknown Relevant Clinical Information: Altered mental status, hypoglycemia, hypothermia Ordering Facility: [facility] Address: , , Performed By: #### G LUCOMETER #### [facility] Neutrophils/100 WBC (Bld) 76.6 % High 41.1-75.9 [facility] Comment on above: Order Comment: Speci men Type: Unknown Relevant Clinical Information: Altered mental status, hypoglycemia, hypothermia Ordering Facility: [facility] Address: , , Performed By: #### G LUCOMETER #### [facility] Platelet mean volume (Bld) [Entitic vol] 11.3 fL Normal 8.6-12.2 [facility] Comment on above: Order Comment: Speci men Type: Unknown Relevant Clinical Information: Altered mental status, hypoglycemia, hypothermia Ordering Facility: [facility] Address: , , Performed By: #### G LUCOMETER #### [facility]OC Platelets (Bld) [#/Vol] 220 10*3/uL Normal 133-425 [facility] Comment on above: Order Comment: Speci men Type: Unknown Relevant Clinical Information: Altered mental status, hypoglycemia, hypothermia Ordering Facility: [facility] Address: , , Performed By: #### G LUCOMETER #### [facility] RBC (Bld) [#/Vol] 3.71 10*6/uL Low 3.90-5.90 [facility] Comment on above: Order Comment: Speci men Type: Unknown Relevant Clinical Information: Altered mental status, hypoglycemia, hypothermia Ordering Facility: [facility] Address: , , Performed By: #### G LUCOMETER #### [facility] WBC (Bld) [#/Vol] 10.3 10*3/uL Normal 4.5-11.0 [facility] Comment on above: Order Comment: Speci men Type: Unknown Relevant Clinical Information: Altered mental status, hypoglycemia, hypothermia Ordering Facility: [facility] Address: , , Performed By: #### G LUCOMETER #### [facility] Comprehensive Metabolic Pane velasquez 08-03-2023 Albumin [Mass/Vol] 2.9 g/dL Low 3.4-5.0 [facility] Comment on above: Order Comment: Speci men Type: Unknown Relevant Clinical Information: Altered mental status, hypoglycemia, hypothermia Ordering Facility: [facility] Lab-CLIA#[id number] Address: [address] [place] [address] Performed By: #### M G, CMP #### [facility] Lab-CLIA#[id number] CLIA [id number] [address] [place] [address] Phil Franklin DO, FCAP ALP [Catalytic activity/Vol] 100 U/L Normal 46-116 [facility] Comment on above: Order Comment: Speci men Type: Unknown Relevant Clinical Information: Altered mental status, hypoglycemia, hypothermia Ordering Facility: [facility] Lab-CLIA#[id number] Address: [address] [place] [address] Performed By: #### M G, CMP #### [facility] Lab-CLIA#[id number] CLIA [id number] [address] [place], [place] [id number] Vincrony Randhallesi, DO,FCAP ALT [Catalytic activity/Vol] 16 U/L Normal 10-49 [facility] Comment on above: Order Comment: Speci men Type: Unknown Relevant Clinical Information: Altered mental status, hypoglycemia, hypothermia Ordering Facility: [facility] Lab-CLIA#[id number] Address: [address] [place] [address] Performed By: #### Aislinn Worthy, CMP #### [facility] Lab-CLIA#[id number] CLIA [id number] [address] [place] [address] Vincrony Luceroaisi, DO,FCAP Anion gap [Moles/Vol] 12 mmol/L Normal 7-17 [facility] Comment on above: Order Comment: Speci men Type: Unknown Relevant Clinical Information: Altered mental status, hypoglycemia, hypothermia Ordering Facility: [facility] Lab-CLIA#[id number] Address: [address] [place] [address] Performed By: #### Aislinn Worthy, CMP #### [facility] Lab-CLIA#[id number] CLIA [id number] [address] [place] [address] Vincrony Randaisi, DO,FCAP AST [Catalytic activity/Vol] 16 U/L Normal <34 [facility] Comment on above: Order Comment: Speci men Type: Unknown Relevant Clinical Information: Altered mental status, hypoglycemia, hypothermia Ordering Facility: [facility] Lab-CLIA#[id number] Address: [address] [place] [address] Performed By: #### Aislinn Worthy, CMP #### [facility] Lab-CLIA#[id number] CLIA [id number] [address] [place], [place] [address] Vincrony Randhallesi, DO,FCAP Bilirubin [Mass/Vol] 0.3 mg/dL Normal 0.3-1.2 [facility] Comment on above: Order Comment: Speci men Type: Unknown Relevant Clinical Information: Altered mental status, hypoglycemia, hypothermia Ordering Facility: [facility] Lab-CLIA#[id number] Address: [address] [place] [address] Performed By: #### Aislinn Worthy, CMP #### [facility] Lab-CLIA#[id number] CLIA [id number] [address] [place] [address] Vincrony Franklin, DO,FCAP Calcium [Mass/Vol] 8.2 mg/dL Low 8.3-10.6 [facility] Comment on above: Order Comment: Speci men Type: Unknown Relevant Clinical Information: Altered mental status, hypoglycemia, hypothermia Ordering Facility: [facility] Lab-CLIA#[id number] Address: [address] [place] [address] Performed By: #### Aislinn Worthy, CMP #### [facility] Lab-CLIA#[id number] CLIA [id number] [address] [place] [address] Phil Franklin, DO,FCAP Chloride [Moles/Vol] 111 mmol/L High 98-107 [facility] Comment on above: Order Comment: Speci men Type: Unknown Relevant Clinical Information: Altered mental status, hypoglycemia, hypothermia Ordering Facility: [facility] Lab-CLIA#[id number] Address: [address] [place] [address] Performed By: #### Aislinn Wortyh, CMP #### [facility] Lab-CLIA#[id number] CLIA [id number] [address] [place] [address] Phil Franklin, DO,FCAP CO2 [Moles/Vol] 22 mmol/L Normal 20-31 [facility] Comment on above: Order Comment: Speci men Type: Unknown Relevant Clinical Information: Altered mental status, hypoglycemia, hypothermia Ordering Facility: [facility] Lab-CLIA#[id number] Address: [address] [place] [address] Performed By: #### Aislinn Worthy, CMP #### [facility] Lab-CLIA#[id number] CLIA [id number] [address] [place] [address] Vincrony Dialsi, DO,FCAP Creatinine [Mass/Vol] 2.348 mg/dL High 0.70-1.30 [facility] Comment on above: Order Comment: Speci men Type: Unknown Relevant Clinical Information: Altered mental status, hypoglycemia, hypothermia Ordering Facility: [facility] Lab-CLIA#[id number] Address: [address] [place] [address] Performed By: #### M G, CMP #### [facility] Lab-CLIA#[id number] CLIA [id number] [address] [place] [address] Phil Franklin DO,FCAP Creatinine Clr Calc Pharmacy 36 [facility] Comment on above: Order Comment: Speci men Type: Unknown Relevant Clinical Information: Altered mental status, hypoglycemia, hypothermia Ordering Facility: [facility] Lab-CLIA#[id number] Address: [address] [place] [address] Performed By: #### M G, CMP #### [facility] Lab-CLIA#[id number] CLIA [id number] [address] [place] [address] Phil Franklin DO,FCAP GFR/1.73 sq M.predicted MDRD (S/P/Bld) [Vol rate/Area] 31 mL/min/{1.73_m2} [facility] Comment on above: Order Comment: Speci men Type: Unknown Relevant Clinical Information: Altered mental status, hypoglycemia, hypothermia Ordering Facility: [facility] Lab-CLIA#[id number] Address: [address] [place] [address] Result Comment: K/DO QI Guideline: Stage 1 [...] Performed By: #### Aislinn Worthy, CMP #### [facility] Lab-CLIA#[id number] CLIA [id number] [address] [place] [address] Phil Franklin, DO,FCAP Glucose [Mass/Vol] 147 mg/dL High 74-106 Dori martínez [facility] Comment on above: Order Comment: Speci men Type: Unknown Relevant Clinical Information: Altered mental status, hypoglycemia, hypothermia Ordering Facility: [facility] Lab-CLIA#[id number] Address: [address] [place] [address] Performed By: #### Aislinn Worthy, CMP #### [facility] Lab-CLIA#[id number] CLIA [id number] [address] [place] [address] Phil Franklin, DO,FCAP Potassium [Moles/Vol] 4.6 mmol/L Normal 3.5-5.1 Gauri sen [facility] Comment on above: Order Comment: Speci men Type: Unknown Relevant Clinical Information: Altered mental status, hypoglycemia, hypothermia Ordering Facility: [facility] Lab-CLIA#[id number] Address: [address] [place] [address] Performed By: #### Aislinn Worthy, CMP #### [facility] Lab-CLIA#[id number] CLIA [id number] [address] [place] [address] Phil Franklin, DO,FCAP Protein [Mass/Vol] 5.4 g/dL Low 5.7-8.2 Dori martínez [facility] Comment on above: Order Comment: Speci men Type: Unknown Relevant Clinical Information: Altered mental status, hypoglycemia, hypothermia Ordering Facility: [facility] Lab-CLIA#[id number] Address: [address] [place] [address] Performed By: #### Aislinn Worthy, CMP #### [facility] Lab-CLIA#[id number] CLIA [id number] [address] [place] [address] Phil Franklin DO,FCAP Sodium [Moles/Vol] 140 mmol/L Normal 136-145 [facility] Comment on above: Order Comment: Speci men Type: Unknown Relevant Clinical Information: Altered mental status, hypoglycemia, hypothermia Ordering Facility: [facility] Lab-CLIA#[id number] Address: [address] [place] [address] Performed By: #### M G, CMP #### [facility] Lab-CLIA#[id number] CLIA [id number] [address] [place] [address] Phil Franklin DO,FCAP Urea nitrogen [Mass/Vol] 50 mg/dL High 07-06 [facility] Comment on above: Order Comment: Speci men Type: Unknown Relevant Clinical Information: Altered mental status, hypoglycemia, hypothermia Ordering Facility: [facility] Lab-CLIA#[id number] Address: [address] [place] [address] Performed By: #### Aislinn G, CMP #### [facility] Lab-CLIA#[id number] CLIA [id number] [address] [place] [address] Phil Franklin DO,FCAP Eosinophils Auto (Bld) [#/Vo l]Ordered By: Helen Jovel on 08-03-2023 Eosinophils (Bld) [#/Vol] 0.31 10*3/uL 0.00-0.50 [facility] Eosinophils/100 WBC Auto (Bl d)Ordered By: Helen Jovel on 08-03-2023 Eosinophils/100 WBC (Bld) 3.0 % 0.0-5.8 [facility] Comment on above: Delta: 2.0 on -0424 Erythrocyte distribution wid th Auto (RBC) [Ratio]Ordered By: Helen Jovel on 08-03-2023 Erythrocyte distribution width (RBC) [Ratio] 13.2 % 11.6-14.8 [facility] Glomerular filtration rate ( GFR) estimation/1.73 sq m using creatinine measurement wiOrdered By: Helen Jovel on 08-03-2023 GFR/1.73 sq M.predicted CKD-EPI (S/P/Bld) [Vol rate/Area] 31 mL/min >60 [facility] Comment on above: K/DOQI Guideline:Sta ge [...] [Mass/Vol] 339 mg/dL High 70-110 Dori martínez [facility] Comment on above: Order Comment: Speci men Type: Unknown Relevant Clinical Information: Altered mental status, hypoglycemia, hypothermia Ordering Facility: [facility] Lab-CLIA#[id number] Address: [address] [place] [address] Performed By: #### M G, CMP #### [facility] Lab-CLIA#[id number] CLIA [id number] [address] [place] [address] Phil Franklin DOFCAP Glucose [Mass/Vol] 165 mg/dL High 70-110 Dori martínez [facility] Comment on above: Order Comment: Speci men Type: Unknown Relevant Clinical Information: Altered mental status, hypoglycemia, hypothermia Ordering Facility: [facility] Address: , , Performed By: #### G LUCOMETER #### [facility] Glucose [Mass/Vol] 381 mg/dL High 70-110 Dori martínez [facility] Comment on above: Order Comment: Speci men Type: Unknown Relevant Clinical Information: Altered mental status, hypoglycemia, hypothermia Ordering Facility: [facility] Address: , , Performed By: #### G LUCOMETER #### [facility] Glucose Glucometer (BldC) [M ass/Vol]Ordered By: Harjeet Ruelas on 08-03-2023 Glucose [Mass/Vol] 339 mg/dL 70-110 Dori martínez [facility] Hematocrit Auto (Bld) [Volum e fraction]Ordered By: Helen Jovel on 08-03-2023 Hematocrit (Bld) [Volume fraction] 34.3 % 41.0-53.0 [facility] - Chemistry and C hemistry - challengeOrdered By: Helen Jovel on 08-03-2023 Anion gap [Moles/Vol] 12 mmol/L 7-17 [facility] Lymphocytes/100 WBC Auto (Bl d)Ordered By: Helen Jovel on 08-03-2023 Lymphocytes/100 WBC (Bld) 12.2 % 13.4-45.1 [facility] Comment on above: Delta: 6.3 on MCH Auto (RBC) [Entitic mass ]Ordered By: Helen Jovel on 08-03-2023 MCH (RBC) [Entitic mass] 31.5 pg 27.2-33.0 [facility] MCHC Auto (RBC) [Mass/Vol]Or dered By: Helen Jovel on 08-03-2023 MCHC (RBC) [Mass/Vol] 34.1 g/dL 31.9-35.1 [facility] MCV (mean corpuscular volume ) determinationOrdered By: Helen Jovel on 08-03-2023 MCV (RBC) [Entitic vol] 92.5 fL 81.7-97.1 [facility] Comment on above: Delta: 89.8 on 08/02 Magnesiumon 08-03-2023 Magnesium [Mass/Vol] 1.9 mg/dL Normal 1.6-2.6 [facility] Comment on above: Order Comment: Speci men Type: Unknown Relevant Clinical Information: Altered mental status, hypoglycemia, hypothermia Ordering Facility: [facility] Lab-CLIA#[id number] Address: [address] [place] [address] Performed By: #### M G, CMP #### [facility] Lab-CLIA#[id number] CLIA [id number] [address] [place] [address] Phil Franklin DO, FCAP Monocytes Auto (Bld) [#/Vol] Ordered By: Helen Jovel on 08-03-2023 Monocytes (Bld) [#/Vol] 0.77 10*3/uL 0.30-0.90 [facility] Comment on above: Delta: 0.50 on 08/02 Monocytes/100 WBC Auto (Bld) Ordered By: Helen Jovel on 08-03-2023 Monocytes/100 WBC (Bld) 7.5 % 4.0-12.7 [facility] Comment on above: Delta: 3.4 on Neutrophils Auto (Bld) [#/Vo l]Ordered By: Helen Jovel on 08-03-2023 Neutrophils (Bld) [#/Vol] 7.89 10*3/uL 1.70-7.00 [facility] Comment on above: Delta: 12.71 on 07/154 Neutrophils/100 WBC Auto (Bl d)Ordered By: Helen Jovel on 08-03-2023 Neutrophils/100 WBC (Bld) 76.6 % 41.1-75.9 [facility] No Panel InformationOrdered By: Helen Jovel on 08-03-2023 Pharmacy Creatinine Clearance (Chem 36 [facility] Platelet mean volume Auto (B ld) [Entitic vol]Ordered By: Helen Jovel on 08-03-2023 Platelet mean volume (Bld) [Entitic vol] 11.3 fL 8.6-12.2 [facility] Platelets Auto (Bld) [#/Vol] Ordered By: Helen Jovel on 08-03-2023 Platelets (Bld) [#/Vol] 220 10*3/uL 133-425 [facility] RBC Auto (Bld) [#/Vol]Ordere d By: Helen Jovel on 08-03-2023 RBC (Bld) [#/Vol] 3.71 10*6/uL 3.90-5.90 [facility] Serum or plasma alanine walton otransferase measurement with P-5'-P (enzymatic activity/Ordered By: Helen Jovel on 08-03-2023 ALT With P-5'-P [Catalytic activity/Vol] 16 U/L 10-49 [facility] Serum or plasma albumin regi urement by bromocresol purple (BCP) dye binding method (mOrdered By: Helen Jovel on 08-03-2023 Albumin BCP dye [Mass/Vol] 2.9 g/dL 3.4-5.0 [facility] Serum or plasma alkaline mari sphatase measurement (enzymatic activity/volume)Ordered By: Helen Jovel on 08-03-2023 ALP [Catalytic activity/Vol] 100 U/L 46-116 [facility] Serum or plasma aspartate am inotransferase measurement with P-5'-P (enzymatic activitOrdered By: Helen Jovel on 08-03-2023 AST With P-5'-P [Catalytic activity/Vol] 16 U/L 0-33 [facility] Serum or plasma calcium regi urement (mass/volume)Ordered By: Helen Jovel on 08-03-2023 Calcium [Mass/Vol] 8.2 mg/dL 8.3-10.6 Dori martínez [facility] Serum or plasma chloride taryn surement (moles/volume)Ordered By: Helen Jovel on 08-03-2023 Chloride [Moles/Vol] 111 mmol/L 98-107 [facility] Serum or plasma creatinine m easurement (mass/volume)Ordered By: Helen Jovel on 08-03-2023 Creatinine [Mass/Vol] 2.348 mg/dL 0.70-1.30 [facility] Serum or plasma glucose regi urement (mass/volume)Ordered By: Helen Jovel on 08-03-2023 Glucose [Mass/Vol] 147 mg/dL 74-106 Dori martínez [facility] Comment on above: Delta: 30 on 34 Serum or plasma magnesium me asurement (mass/volume)Ordered By: Helen Jovel on 08-03-2023 Magnesium [Mass/Vol] 1.9 mg/dL 1.6-2.6 [facility] Serum or plasma potassium me asurement (moles/volume)Ordered By: Helen Jovel on 08-03-2023 Potassium [Moles/Vol] 4.6 mmol/L 3.5-5.1 [facility] Serum or plasma sodium measu rement (moles/volume)Ordered By: Helen Jovel on 08-03-2023 Sodium [Moles/Vol] 140 mmol/L 136-145 Dori martínez [facility] Serum or plasma total biliru bin measurement (mass/volume)Ordered By: Helen Jovel on 08-03-2023 Bilirubin [Mass/Vol] 0.3 mg/dL 0.3-1.2 [facility] Serum or plasma total carbon dioxide measurement (moles/volume)Ordered By: Helen Jovel on 08-03-2023 CO2 [Moles/Vol] 22 mmol/L [facility] Serum or plasma urea nitroge n measurement (mass/volume)Ordered By: Helen Jovel on 08-03-2023 Urea nitrogen [Mass/Vol] 50 mg/dL 07-06 [facility] Serum total protein measurem ent (mass/volume)Ordered By: Helen Jovel on 08-03-2023 Protein [Mass/Vol] 5.4 g/dL 5.7-8.2 Dori [facility] WBC Auto (Bld) [#/Vol]Ordere d By: Helen Jovel on 08-03-2023 WBC (Bld) [#/Vol] 10.3 10*3/uL 4.5-11.0 [facility] Comment on above: Delta: 14.5 on 08/02 Absolute lymphocyte countOrd ered By: Christopher Santiago on 08-02-2023 Lymphocytes Auto (Unsp spec) [#/Vol] 0.92 10*3/uL 0.80-3.30 [facility] Amphetamine Screen Ql (U)Ord ered By: Helen Stanleyfadi on 08-02-2023 Amphetamines Ql (U) Not detected None Detect [facility] Comment on above: Cutoff: 500ng/mL Appearance urOrdered By: Lety shelton Med on 08-02-2023 Appearance (U) Clear Clear [facility] Arterial Blood Gason 023 Glucose [Mass/Vol] 39 mg/dL Critically low 70-110 So [facility] Comment on above: Order Comment: Speci men Type: Unknown Relevant Clinical Information: low gluc Ordering Facility: [facility] Lab-CLIA#[id number] Address: [address] [place] [address] Performed By: #### A BG #### [facility] Lab-CLIA#[id number] CLIA [id number] [address] [place] [address] Phil Franklin DO,FCAP Hemoglobin (Bld) [Mass/Vol] 14.0 g/dL Normal 12.2-18.1 [facility] Comment on above: Order Comment: Speci men Type: Unknown Relevant Clinical Information: low gluc Ordering Facility: [facility] Lab-CLIA#[id number] Address: [address] [place] [address] Performed By: #### A BG #### [facility] Lab-CLIA#[id number] CLIA [id number] [address] [place] [address] Phil Franklin DO,FCAP Normalized Ionized Calcium 1.19 mmol/L Normal 1.01-1.33 [facility] Comment on above: Order Comment: Speci men Type: Unknown Relevant Clinical Information: low gluc Ordering Facility: [facility] Lab-CLIA#[id number] Address: [address] [place] [address] Performed By: #### A BG #### [facility] Lab-CLIA#[id number] CLIA [id number] [address] [place] [address] Phil Franklin DO,FCAP Arterial Blood Methemoglobin 0.3 % Normal 0.0-0.3 [facility] Comment on above: Order Comment: Speci men Type: Unknown Relevant Clinical Information: low gluc Ordering Facility: [facility] Lab-CLIA#[id number] Address: [address] [place] [address] Performed By: #### A BG #### [facility] Lab-CLIA#[id number] CLIA [id number] [address] [place] [address] Phil Franklin DO,FCAP Arterial Lactate 0.7 mmol/L Normal 0.5-1.6 [facility] Comment on above: Order Comment: Speci men Type: Unknown Relevant Clinical Information: low gluc Ordering Facility: [facility] Lab-CLIA#[id number] Address: [address] [place] [address] Performed By: #### A BG #### [facility] Lab-CLIA#[id number] CLIA [id number] [address] [place] [address] Phil Franklin, DO,FCAP Base Excess ABG -3.6 mmol/L Normal [facility] Comment on above: Order Comment: Speci men Type: Unknown Relevant Clinical Information: low gluc Ordering Facility: [facility] Lab-CLIA#[id number] Address: [address] [place] [address] Performed By: #### A BG #### [facility] Lab-CLIA#[id number] CLIA [id number] [address] [place] [address] Phil Franklin DO,FCAP Carboxyhemoglobin 4.1 % High 0.1-2.5 [facility] Comment on above: Order Comment: Speci men Type: Unknown Relevant Clinical Information: low gluc Ordering Facility: [facility] Lab-CLIA#[id number] Address: [address] [place] [address] Performed By: #### A BG #### [facility] Lab-CLIA#[id number] CLIA [id number] [address] [place] [address] Phil Franklin, DO,FCAP Fractionated Inspired Oxygen 21 % Normal [facility] Comment on above: Order Comment: Speci men Type: Unknown Relevant Clinical Information: low gluc Ordering Facility: [facility] Lab-CLIA#[id number] Address: [address] [place] [address] Performed By: #### A BG #### [facility] Lab-CLIA#[id number] CLIA [id number] [address] [place] [address] Vincrony Franklin, DO,FCAP HCO3 (Bld) [Moles/Vol] 22 mmol/L Normal 22-26 So [facility] Comment on above: Order Comment: Speci men Type: Unknown Relevant Clinical Information: low gluc Ordering Facility: [facility] Lab-CLIA#[id number] Address: [address] [place] [address] Performed By: #### A BG #### [facility] Lab-CLIA#[id number] CLIA [id number] [address] [place] [address] Phil Franklin, DO,FCAP Oxygen Content ABG 17.9 mL/dL Normal 17-100 [facility] Comment on above: Order Comment: Speci men Type: Unknown Relevant Clinical Information: low gluc Ordering Facility: [facility] Lab-CLIA#[id number] Address: [address] [place] [address] Performed By: #### A BG #### [facility] Lab-CLIA#[id number] CLIA [id number] [address] [place] [address] Phil Franklin, DO,FCAP Oxygen Saturation ABG 95.1 % Low 96-97 [facility] Comment on above: Order Comment: Speci men Type: Unknown Relevant Clinical Information: low gluc Ordering Facility: [facility] Lab-CLIA#[id number] Address: [address] [place] [address] Performed By: #### A BG #### [facility] Lab-CLIA#[id number] CLIA [id number] [address] [place] [address] Vincent Randaisi, DO,FCAP PCO2 ABG 41 mm[Hg] Normal 32-53 [facility] Comment on above: Order Comment: Speci men Type: Unknown Relevant Clinical Information: low gluc Ordering Facility: [facility] Lab-CLIA#[id number] Address: [address] [place] [address] Performed By: #### A BG #### [facility] Lab-CLIA#[id number] CLIA [id number] [address] [place] [address] Vincent Randaisi, DO,FCAP PO2 ABG 82.2 mm[Hg] Normal 80-110 [facility] Comment on above: Order Comment: Speci men Type: Unknown Relevant Clinical Information: low gluc Ordering Facility: [facility] Lab-CLIA#[id number] Address: [address] [place] [address] Performed By: #### A BG #### [facility] Lab-CLIA#[id number] CLIA [id number] [address] [place] [address] Vincrony Randaisi, DO,FCAP Potassium [Moles/Vol] 4.5 mmol/L Normal 3.5-5.1 [facility] Comment on above: Order Comment: Speci men Type: Unknown Relevant Clinical Information: low gluc Ordering Facility: [facility] Lab-CLIA#[id number] Address: [address] [place] [address] Performed By: #### A BG #### [facility] Lab-CLIA#[id number] CLIA [id number] [address] [place] [address] Vincent Randaisi, DO,FCAP Sodium [Moles/Vol] 139 mmol/L Normal 136-145 [facility] Comment on above: Order Comment: Speci men Type: Unknown Relevant Clinical Information: low gluc Ordering Facility: [facility] Lab-CLIA#[id number] Address: [address] [place] [address] Performed By: #### A BG #### [facility] Lab-CLIA#[id number] CLIA [id number] [address] [place] [address] Phil Franklin, DO,FCAP Arterial Blood pH 7.34 Low 7.35-7.45 [facility] Comment on above: Order Comment: Speci men Type: Unknown Relevant Clinical Information: low gluc Ordering Facility: [facility] Lab-CLIA#[id number] Address: [address] [place] [address] Performed By: #### A BG #### [facility] Lab-CLIA#[id number] CLIA [id number] [address] [place] [address] Phil Franklin DO,FCAP Arterial blood methemoglobin /total hemoglobinOrdered By: Christopher Santiago on 08-02-2023 Methemoglobin (BldA) [Mass fraction] 0.3 % 0.0-0.3 [facility] Arterial blood oxygen measur ementOrdered By: Christopher Santiago on 08-02-2023 Oxygen content (BldA) [Moles/Vol] 17.9 mL/dL 17-100 [facility] Arterial whole blood lactic acid measurement (moles/volume)Ordered By: Christopher Santiago on 08-02-2023 Lactate (BldA) [Moles/Vol] 0.7 mmol/L 0.5-1.6 [facility] Automated bacteria count in urine sediment (number/area)Ordered By: Helen Jovel on 08-02-2023 Bacteria Auto (Urine sed) [#/Area] None None [facility] Automated erythrocytes count in urine sediment (number/area)Ordered By: Helen Jovel on 08-02-2023 RBC Auto (Urine sed) [#/Area] 1 /HPF 0-5 [facility] Automated non-squamous epith elial cells count in urine sediment (number/area)Ordered By: Helen Jovel on 08-02-2023 Epithelial cells.non-squamous Auto (Urine sed) [#/Area] 0 /HPF 0-4 [facility] Automated urine leukocytes c ount (number/volume)Ordered By: Helen Jovel on 08-02-2023 WBC Auto (U) [#/Vol] 0 /HPF 0-4 [facility] Base excess Calc (BldA) [Mol es/Vol]Ordered By: Christopher Santiago on 08-02-2023 Base excess Calc (Bld) [Moles/Vol] -3.6000 mmol/L [facility] Basic Metabolic Panelon 07-15 Glucose [Mass/Vol] 30 mg/dL Critically low 74-106 So [facility] Comment on above: Order Comment: Speci men Type: Unknown Relevant Clinical Information: Altered mental status, hypoglycemia, hypothermia Ordering Facility: [facility] Lab-CLIA#[id number] Address: [address] [place] [address] Performed By: #### Aislinn Worthy, CMP #### [facility] Lab-CLIA#[id number] CLIA [id number] [address] [place] [address] Phil Franklin DO,FCAP Anion gap [Moles/Vol] 11 mmol/L Normal 7-17 [facility] Comment on above: Order Comment: Speci men Type: Unknown Relevant Clinical Information: Altered mental status, hypoglycemia, hypothermia Ordering Facility: [facility] Lab-CLIA#[id number] Address: [address] [place] [address] Performed By: #### Aislinn Worthy, CMP #### [facility] Lab-CLIA#[id number] CLIA [id number] [address] [place] [address] Phil Franklin DO,FCAP Calcium [Mass/Vol] 9.4 mg/dL Normal 8.3-10.6 [facility] Comment on above: Order Comment: Speci men Type: Unknown Relevant Clinical Information: Altered mental status, hypoglycemia, hypothermia Ordering Facility: [facility] Lab-CLIA#[id number] Address: [address] [place] [address] Performed By: #### Aislinn Worthy, CMP #### [facility] Lab-CLIA#[id number] CLIA [id number] [address] [place], [place] [address] Phil Franklin, DO,FCAP Chloride [Moles/Vol] 106 mmol/L Normal 98-107 [facility] Comment on above: Order Comment: Speci men Type: Unknown Relevant Clinical Information: Altered mental status, hypoglycemia, hypothermia Ordering Facility: [facility] Lab-CLIA#[id number] Address: [address] [place] [address] Performed By: #### Aislinn Worthy, CMP #### [facility] Lab-CLIA#[id number] CLIA [id number] [address] [place] [address] Phil Franklin, DO,FCAP CO2 [Moles/Vol] 26 mmol/L Normal 20-31 [facility] Comment on above: Order Comment: Speci men Type: Unknown Relevant Clinical Information: Altered mental status, hypoglycemia, hypothermia Ordering Facility: [facility] Lab-CLIA#[id number] Address: [address] [place] [address] Performed By: #### Aislinn Worthy, CMP #### [facility] Lab-CLIA#[id number] CLIA [id number] [address] [place] [address] Phil Franklin, DO,FCAP Creatinine [Mass/Vol] 2.585 mg/dL High 0.70-1.30 So [facility] Comment on above: Order Comment: Speci men Type: Unknown Relevant Clinical Information: Altered mental status, hypoglycemia, hypothermia Ordering Facility: [facility] Lab-CLIA#[id number] Address: [address] [place] [address] Performed By: #### Aislinn Worthy, CMP #### [facility] Lab-CLIA#[id number] CLIA [id number] [address] [place] [address] Phil Franklin, DO,FCAP Creatinine Clr Calc Pharmacy 32 Normal [facility] Comment on above: Order Comment: Speci men Type: Unknown Relevant Clinical Information: Altered mental status, hypoglycemia, hypothermia Ordering Facility: [facility] Lab-CLIA#[id number] Address: [address] [place] [address] Performed By: #### Aislinn Worthy, CMP #### [facility] Lab-CLIA#[id number] CLIA [id number] [address] [place] [address] Phil Franklin DO,FCAP GFR/1.73 sq M.predicted MDRD (S/P/Bld) [Vol rate/Area] 28 mL/min/{1.73_m2} [facility] Comment on above: Order Comment: Speci men Type: Unknown Relevant Clinical Information: Altered mental status, hypoglycemia, hypothermia Ordering Facility: [facility] Lab-CLIA#[id number] Address: [address] [place] [address] Result Comment: K/DO QI Guideline: Stage 1 [...] Have normal kidney function Performed By: #### Asilinn Worthy, CMP #### [facility] Lab-CLIA#[id number] CLIA [id number] [address] [place], [place] [address] Phil Franklin DO,FCAP Potassium [Moles/Vol] 4.2 mmol/L Normal 3.5-5.1 [facility] Comment on above: Order Comment: Speci men Type: Unknown Relevant Clinical Information: Altered mental status, hypoglycemia, hypothermia Ordering Facility: [facility] Lab-CLIA#[id number] Address: [address] [place] [address] Performed By: #### Aislinn G, CMP #### [facility] Lab-CLIA#[id number] CLIA [id number] [address] [place] [address] Vincrony Franklin, DO,FCAP Sodium [Moles/Vol] 139 mmol/L Normal 136-145 [facility] Comment on above: Order Comment: Speci men Type: Unknown Relevant Clinical Information: Altered mental status, hypoglycemia, hypothermia Ordering Facility: [facility] Lab-CLIA#[id number] Address: [address] [place] [address] Performed By: #### Aislinn Worthy, CMP #### [facility] Lab-CLIA#[id number] CLIA [id number] [address] [place] [address] Phil Franklin DO,FCAP Urea nitrogen [Mass/Vol] 48 mg/dL High 9-23 [facility] Comment on above: Order Comment: Speci men Type: Unknown Relevant Clinical Information: Altered mental status, hypoglycemia, hypothermia Ordering Facility: [facility] Lab-CLIA#[id number] Address: [address] [place] [address] Performed By: #### Aislinn Worthy, CMP #### [facility] Lab-CLIA#[id number] CLIA [id number] [address] [place] [address] Vincrony Franklin, DO,FCAP Basophils Auto (Bld) [#/Vol] Ordered By: Christopher Santiago on 08-02-2023 Basophils (Bld) [#/Vol] 0.04 10*3/uL 0.00-0.10 [facility] Basophils/100 WBC Auto (Bld) Ordered By: Christopher Santiago on 08-02-2023 Basophils/100 WBC (Bld) 0.3 % 0.0-1.3 [facility] Bilirubin Auto test strip Ql (U)Ordered By: Helen Jovel on 08-02-2023 Bilirubin Ql (U) Negative Negative [facility] Blood hemoglobin measurement (mass/volume)Ordered By: Christopher Santiago on 08-02-2023 Hemoglobin (Bld) [Mass/Vol] 14.0 g/dL 13.5-17.7 [facility] C Pe[facility] 08-02-2023 C Peptide 2.00 ng/mL Normal 0.48-5.05 [facility] Comment on above: Order Comment: Speci men Type: Unknown Relevant Clinical Information: Altered mental status, hypoglycemia, hypothermia Ordering Facility: [facility] Lab-CLIA#[id number] Address: [address] [place] [address] Performed By: #### M G, CMP #### [facility] Lab-CLIA#[id number] CLIA [id number] [address] [place] [address] Phil Franklin DO,FCAP CBC w/ Auto Diffon 3 Basophils Absolute Auto 0.04 10*3/uL Normal 0.00-0.10 [facility] Comment on above: Order Comment: Speci men Type: Unknown Relevant Clinical Information: low gluc Ordering Facility: [facility] Lab-CLIA#[id number] Address: [address] [place] [address] Performed By: #### C BC #### [facility] Lab-CLIA#[id number] CLIA [id number] [address] [place] [address] Phil Franklin DO,FCAP Basophils/100 WBC (Bld) 0.3 % Normal 0.0-1.3 [facility] Comment on above: Order Comment: Speci men Type: Unknown Relevant Clinical Information: low gluc Ordering Facility: [facility] Lab-CLIA#[id number] Address: [address] [place] [address] Performed By: #### C BC #### [facility] Lab-CLIA#[id number] CLIA [id number] [address] [place] [address] Phil Franklin DO,FCAP Eosinophils (Bld) [#/Vol] 0.29 10*3/uL Normal 0.00-0.50 [facility] Comment on above: Order Comment: Speci men Type: Unknown Relevant Clinical Information: low gluc Ordering Facility: [facility] Lab-CLIA#[id number] Address: [address] [place] [address] Performed By: #### C BC #### [facility] Lab-CLIA#[id number] CLIA [id number] [address] [place] [address] Phil Franklin, DO,FCAP Eosinophils/100 WBC (Bld) 2.0 % Normal 0.0-5.8 [facility] Comment on above: Order Comment: Speci men Type: Unknown Relevant Clinical Information: low gluc Ordering Facility: [facility] Lab-CLIA#[id number] Address: [address] [place] [address] Performed By: #### C BC #### [facility] Lab-CLIA#[id number] CLIA [id number] [address] [place] [address] Phil Franklin, DO,FCAP Erythrocyte distribution width (RBC) [Ratio] 13.1 % Normal 11.6-14.8 [facility] Comment on above: Order Comment: Speci men Type: Unknown Relevant Clinical Information: low gluc Ordering Facility: [facility] Lab-CLIA#[id number] Address: [address] [place] [address] Performed By: #### C BC #### [facility] Lab-CLIA#[id number] CLIA [id number] [address] [place] [address] Phil Franklin, DO,FCAP Hematocrit (Bld) [Volume fraction] 40.5 % Low 41.0-53.0 [facility] Comment on above: Order Comment: Speci men Type: Unknown Relevant Clinical Information: low gluc Ordering Facility: [facility] Lab-CLIA#[id number] Address: [address] [place] [address] Performed By: #### C BC #### [facility] Lab-CLIA#[id number] CLIA [id number] [address] [place] [address] Vincent Randaisi, DO,FCAP Hemoglobin (Bld) [Mass/Vol] 14.0 g/dL Normal 13.5-17.7 [facility] Comment on above: Order Comment: Speci men Type: Unknown Relevant Clinical Information: low gluc Ordering Facility: [facility] Lab-CLIA#[id number] Address: [address] [place] [address] Performed By: #### C BC #### [facility] Lab-CLIA#[id number] CLIA [id number] [address] [place] [address] Phil Franklin DO,FCAP Lymphocytes (Bld) [#/Vol] 0.92 10*3/uL Normal 0.80-3.30 [facility] Comment on above: Order Comment: Speci men Type: Unknown Relevant Clinical Information: low gluc Ordering Facility: [facility] Lab-CLIA#[id number] Address: [address] [place] [address] Performed By: #### C BC #### [facility] Lab-CLIA#[id number] CLIA [id number] [address] [place] [address] Phil Franklin DO,FCAP Lymphocytes/100 WBC (Bld) 6.3 % Low 13.4-45.1 [facility] Comment on above: Order Comment: Speci men Type: Unknown Relevant Clinical Information: low gluc Ordering Facility: [facility] Lab-CLIA#[id number] Address: [address] [place] [address] Performed By: #### C BC #### [facility] Lab-CLIA#[id number] CLIA [id number] [address] [place] [address] Phil Franklin DO,FCAP MCH (RBC) [Entitic mass] 31.0 pg Normal 27.2-33.0 [facility] Comment on above: Order Comment: Speci men Type: Unknown Relevant Clinical Information: low gluc Ordering Facility: [facility] Lab-CLIA#[id number] Address: [address] [place] [address] Performed By: #### C BC #### [facility] Lab-CLIA#[id number] CLIA [id number] [address] [place] [address] Phil Franklin, DO,FCAP MCHC (RBC) [Mass/Vol] 34.6 g/dL Normal 31.9-35.1 [facility] Comment on above: Order Comment: Speci men Type: Unknown Relevant Clinical Information: low gluc Ordering Facility: [facility] Lab-CLIA#[id number] Address: [address] [place] [address] Performed By: #### C BC #### [facility] Lab-CLIA#[id number] CLIA [id number] [address] [place] [address] Phil Franklin DO,FCAP MCV (RBC) [Entitic vol] 89.8 fL Normal 81.7-97.1 [facility] Comment on above: Order Comment: Speci men Type: Unknown Relevant Clinical Information: low gluc Ordering Facility: [facility] Lab-CLIA#[id number] Address: [address] [place] [address] Performed By: #### C BC #### [facility] Lab-CLIA#[id number] CLIA [id number] [address] [place] [address] Phil Franklin DO,FCAP Monocytes (Bld) [#/Vol] 0.50 10*3/uL Normal 0.30-0.90 [facility] Comment on above: Order Comment: Speci men Type: Unknown Relevant Clinical Information: low gluc Ordering Facility: [facility] Lab-CLIA#[id number] Address: [address] [place] [address] Performed By: #### C BC #### [facility] Lab-CLIA#[id number] CLIA [id number] [address] [place] [address] Phil Franklin DO,FCAP Monocytes/100 WBC (Bld) 3.4 % Low 4.0-12.7 [facility] Comment on above: Order Comment: Speci men Type: Unknown Relevant Clinical Information: low gluc Ordering Facility: [facility] Lab-CLIA#[id number] Address: [address] [place] [address] Performed By: #### C BC #### [facility] Lab-CLIA#[id number] CLIA [id number] [address] [place] [address] Phil Franklin DO,FCAP Neutrophils Absolute Auto 12.71 10*3/uL High 1.70-7.00 [facility] Comment on above: Order Comment: Speci men Type: Unknown Relevant Clinical Information: low gluc Ordering Facility: [facility] Lab-CLIA#[id number] Address: [address] [place] [address] Performed By: #### C BC #### [facility] Lab-CLIA#[id number] CLIA [id number] [address] [place] [address] Phil Franklin DO,FCAP Neutrophils/100 WBC (Bld) 87.4 % High 41.1-75.9 [facility] Comment on above: Order Comment: Speci men Type: Unknown Relevant Clinical Information: low gluc Ordering Facility: [facility] Lab-CLIA#[id number] Address: [address] [place] [address] Performed By: #### C BC #### [facility] Lab-CLIA#[id number] CLIA [id number] [address] [place] [address] Phil Franklin DO,FCAP Platelet mean volume (Bld) [Entitic vol] 11.4 fL Normal 8.6-12.2 [facility] Comment on above: Order Comment: Speci men Type: Unknown Relevant Clinical Information: low gluc Ordering Facility: [facility] Lab-CLIA#[id number] Address: [address] [place] [address] Performed By: #### C BC #### [facility] Lab-CLIA#[id number] CLIA [id number] [address] [place] [address] Phil Franklin DO,FCAP Platelets (Bld) [#/Vol] 285 10*3/uL Normal 133-425 [facility] Comment on above: Order Comment: Speci men Type: Unknown Relevant Clinical Information: low gluc Ordering Facility: [facility] Lab-CLIA#[id number] Address: [address] [place] [address] Performed By: #### C BC #### [facility] Lab-CLIA#[id number] CLIA [id number] [address] [place] [address] Phil Franklin DO,FCAP RBC (Bld) [#/Vol] 4.51 10*6/uL Normal 3.90-5.90 [facility] Comment on above: Order Comment: Speci men Type: Unknown Relevant Clinical Information: low gluc Ordering Facility: [facility] Lab-CLIA#[id number] Address: [address] [place] [address] Performed By: #### C BC #### [facility] Lab-CLIA#[id number] CLIA [id number] [address] [place] [address] Phil Franklin DO,FCAP WBC (Bld) [#/Vol] 14.5 10*3/uL High 4.5-11.0 [facility] Comment on above: Order Comment: Speci men Type: Unknown Relevant Clinical Information: low gluc Ordering Facility: [facility] Lab-CLIA#[id number] Address: [address] [place] [address] Performed By: #### C BC #### [facility] Lab-CLIA#[id number] CLIA [id number] [address] [place] [address] Phil Franklin DO,FCAP CO2 (BldA) [Partial pressure ]Ordered By: Christopher Santiago on 08-02-2023 CO2 (Bld) [Partial pressure] 41 mm[Hg] 32-[address] [facility] [address] biopsyOrdered By: Charo Jovel on 08-02-2023 Benzodiazepines Ql (U) Not detected None Detect [facility] Comment on above: Cutoff: 200ng/mL Cocaine Ql (U) Not detected None Detect [facility] Comment on above: Cutoff: 150ng/mL CT biopsy Not detected None Detect [facility] Comment on above: Cutoff: 200ng/mL CTHEADWOon 08-02-2023 CTHEADWO [facility] [address] [place], [place] [address] CT Scan Report Signed Patient: Chandler Minor MR#: [id number] : 1970 Acct: [id number] Age/Sex: 53 / M ADM Date: 08/02/23 Loc: ER. Attending Dr: Ordering Physician: Christopher Santiago D.O. Date of Service: Procedure(s): CT head-brain wo con Accession Number(s): [id number] cc: Christopher Santiago D.O. CT HEAD TECHNICAL: [...] Signed By: Chava Hernandez D.O. 08/02/23 0514 [id number] Normal [facility] CarboxyhemoglobinOrdered By: Christopher Santiago on 08-02-2023 Carboxyhemoglobin (Bld) [Mass/Vol] 4.1 % 0.1-2.5 [facility] Cholesterol in LDL Calc [Mas s/Vol]Ordered By: Marcelino Abel on 08-02-2023 Cholesterol in LDL [Mass/Vol] 28 mg/dL <100 [facility] Determination of inhaled oxy gen concentration (volume fraction)Ordered By: Christopher Santiago on 08-02-2023 Inhaled oxygen concentration 21 % [facility] Direct bilirubin measurement Ordered By: Helen Jovel on 08-02-2023 Bilirubin.direct [Mass/Vol] 0.1 mg/dL 0.0-0.3 [facility] Emergency Department Noteon 08-02-2023 Emergency [place] [address] Emergency Department Note Signed Patient: Chanlder Minor MR#: [id number] : 1970 Acct: [id number] Age/Sex: 53 / M Date of Service: [...] Unobtainable: Yes unobtainable due to mental status [facility] Medical History (Updated 08/02/23 @ 05:23 by Christopher Santiago DO) Diabetes Social History Advance Directives: No Advance Directives Information Provided: No Advance Directives on File: No Would like to be referred to Mental Health Coordinator for info?: No Smoking Status: Never [...] Daniel Coma Scale Eye Opening: No response [place] coma scale verbal response: No response Daniel [...] Vital S (more content not included)... Normal [facility] Eosinophils Auto (Bld) [#/Vo l]Ordered By: Christopher Santiago on 08-02-2023 Eosinophils (Bld) [#/Vol] 0.29 10*3/uL 0.00-0.50 [facility] Eosinophils/100 WBC Auto (Bl d)Ordered By: Christopher Santiago on 08-02-2023 Eosinophils/100 WBC (Bld) 2.0 % 0.0-5.8 [facility] Erythrocyte distribution wid th Auto (RBC) [Ratio]Ordered By: Christopher Santiago on 08-02-2023 Erythrocyte distribution width (RBC) [Ratio] 13.1 % 11.6-14.8 [facility] Free T4on 08-02-2023 Free T4 [Mass/Vol] 1.16 ng/dL Normal 0.89-1.76 Dori martínez [facility] Comment on above: Order Comment: Speci men Type: Unknown Relevant Clinical Information: Altered mental status, hypoglycemia, hypothermia Ordering Facility: [facility] Address: , , Performed By: #### G LUCOMETER #### [facility] Glomerular filtration rate ( GFR) estimation/1.73 sq m using creatinine measurement wiOrdered By: Christopher Santiago on 08-02-2023 GFR/1.73 sq M.predicted CKD-EPI (S/P/Bld) [Vol rate/Area] 28 mL/min >60 [facility] Comment on above: K/DOQI Guideline:Sta ge [...] [Mass/Vol] 240 mg/dL High 70-110 Dori martínez [facility] Comment on above: Order Comment: Speci men Type: Unknown Relevant Clinical Information: Altered mental status, hypoglycemia, hypothermia Ordering Facility: [facility] Lab-CLIA#[id number] Address: [address] [place] [address] Performed By: #### M G, CMP #### [facility] Lab-CLIA#[id number] CLIA [id number] [address] [place] [address] Phil Franklin DO,FCAP Glucose [Mass/Vol] 110 mg/dL Normal 70-110 [facility] Comment on above: Order Comment: Speci men Type: Unknown Relevant Clinical Information: Altered mental status, hypoglycemia, hypothermia Ordering Facility: [facility] Lab-CLIA#[id number] Address: [address] [place] [address] Performed By: #### M Deacon, CMP #### [facility] Lab-CLIA#[id number] CLIA [id number] [address] [place] [address] Vincent Randaisi, DO,FCAP Glucose [Mass/Vol] 117 mg/dL High 70-110 [facility] Comment on above: Order Comment: Speci men Type: Unknown Relevant Clinical Information: Altered mental status, hypoglycemia, hypothermia Ordering Facility: [facility] Lab-CLIA#[id number] Address: [address] [place] [address] Performed By: #### M Deacon, CMP #### [facility] Lab-CLIA#[id number] CLIA [id number] [address] [place] [address] Phil Luceroaisi, DO,FCAP Glucose [Mass/Vol] 124 mg/dL High 70-110 [facility] Comment on above: Order Comment: Speci men Type: Unknown Relevant Clinical Information: Altered mental status, hypoglycemia, hypothermia Ordering Facility: [facility] Address: , , Performed By: #### G LUCOMETER #### [facility] Glucose [Mass/Vol] 105 mg/dL Normal 70-110 [facility] Comment on above: Order Comment: Speci men Type: Unknown Relevant Clinical Information: Altered mental status, hypoglycemia, hypothermia Ordering Facility: [facility] Lab-CLIA#[id number] Address: [address] [place] [address] Performed By: #### M G, CMP #### [facility] Lab-CLIA#[id number] CLIA [id number] [address] [place] [address] Vincent Randaisi, DO,FCAP Glucose [Mass/Vol] 102 mg/dL Normal 70-110 [facility] Comment on above: Order Comment: Speci men Type: Unknown Relevant Clinical Information: Altered mental status, hypoglycemia, hypothermia Ordering Facility: [facility] Lab-CLIA#[id number] Address: [address] [place] [address] Performed By: #### M Deacon, CMP #### [facility] Lab-CLIA#[id number] CLIA [id number] [address] [place] [address] Vincrony Randaisi, DO,FCAP Glucose [Mass/Vol] 97 mg/dL Normal 70-110 [facility] Comment on above: Order Comment: Speci men Type: Unknown Relevant Clinical Information: Altered mental status, hypoglycemia, hypothermia Ordering Facility: [facility] Lab-CLIA#[id number] Address: [address] [place] [address] Performed By: #### Aislinn Worthy, CMP #### [facility] Lab-CLIA#[id number] CLIA [id number] [address] [place] [address] Phil Randaisi, DO,FCAP Glucose [Mass/Vol] 96 mg/dL Normal 70-110 [facility] Comment on above: Order Comment: Speci men Type: Unknown Relevant Clinical Information: Altered mental status, hypoglycemia, hypothermia Ordering Facility: [facility] Lab-CLIA#[id number] Address: [address] [place] [address] Performed By: #### Aislinn Worthy, CMP #### [facility] Lab-CLIA#[id number] CLIA [id number] [address] [place] [address] Vincrony Randaisi, DO,FCAP Glucose [Mass/Vol] 111 mg/dL High 70-110 [facility] Comment on above: Order Comment: Speci men Type: Unknown Relevant Clinical Information: Altered mental status, hypoglycemia, hypothermia Ordering Facility: [facility] Lab-CLIA#[id number] Address: [address] [place] [address] Performed By: #### Aislinn Worthy, CMP #### [facility] Lab-CLIA#[id number] CLIA [id number] [address] [place] [address] Florarony Noemi, DO,FCAP Glucose [Mass/Vol] 156 mg/dL High 70-110 Dori [facility] Comment on above: Order Comment: Speci men Type: Unknown Relevant Clinical Information: Altered mental status, hypoglycemia, hypothermia Ordering Facility: [facility] Address: , , Performed By: #### G LUCOMETER #### [facility] Glucose [Mass/Vol] 55 mg/dL Low 70-110 Dori [facility] Comment on above: Order Comment: Speci men Type: Unknown Relevant Clinical Information: low gluc Ordering Facility: [facility] Address: , , Performed By: #### G LUCOMETER #### [facility] Glucose (Bld) [Mass/Vol]Orde red By: Christopher Santiago on 08-02-2023 Glucose [Mass/Vol] 39 mg/dL 70-110 Dori [facility] Glucose Glucometer (BldC) [M ass/Vol]Ordered By: Christopher Santiago on 08-02-2023 Glucose [Mass/Vol] 102 mg/dL 70-110 [facility] HCO3 (BldA) [Moles/Vol]Order ed By: Christopher Santiago on 08-02-2023 HCO3 (Bld) [Moles/Vol] 22 mmol/L 22-26 [facility] Hematocrit Auto (Bld) [Volum e fraction]Ordered By: Christopher Santiago on 08-02-2023 Hematocrit (Bld) [Volume fraction] 40.5 % 41.0-53.0 [facility] Hemoglobin A1Con 08-02-2023 HbA1c (Bld) [Mass fraction] 12.0 % High <5.7 [facility] Comment on above: Order Comment: Speci men Type: Unknown Relevant Clinical Information: Altered mental status, hypoglycemia, hypothermia Ordering Facility: [facility] Address: , , Result Comment: Expe cted Values Suggested Diagnosis Diabetic >=6.5 (%) Prediabetes 5.7-6.4 (%) Normal <5.7 (%) Performed By: #### G LUCOMETER #### [facility] Hemoglobin A1c percentageOrd ered By: Helen Jovel on 08-02-2023 HbA1c (Bld) [Mass fraction] 12.0 % 0-5.6 [facility] Comment on above: Expected ValuesSumindy steitz Diagnosis Diabetic >=6.5 (%)Prediabetes 5.7-6.4 (%)Normal <5.7 (%) Hemoglobin Oximetry (BldA) [ Mass/Vol]Ordered By: Christopher Santiago on 08-02-2023 Hemoglobin (Bld) [Mass/Vol] 14.0 g/dL 12.2-18.1 [facility] Hepatic Function Panelon Albumin [Mass/Vol] 3.1 g/dL Low 3.4-5.0 [facility] Comment on above: Order Comment: Speci men Type: Unknown Relevant Clinical Information: Altered mental status, hypoglycemia, hypothermia Ordering Facility: [facility] Address: , , Performed By: #### G LUCOMETER #### POC ALP [Catalytic activity/Vol] 100 U/L Normal 46-116 [facility] Comment on above: Order Comment: Speci men Type: Unknown Relevant Clinical Information: Altered mental status, hypoglycemia, hypothermia Ordering Facility: [facility] Address: , , Performed By: #### G LUCOMETER #### [facility] ALT [Catalytic activity/Vol] 14 U/L Normal 10-49 [facility] Comment on above: Order Comment: Speci men Type: Unknown Relevant Clinical Information: Altered mental status, hypoglycemia, hypothermia Ordering Facility: [facility] Address: , , Performed By: #### G LUCOMETER #### POC AST [Catalytic activity/Vol] 18 U/L Normal <34 [facility] Comment on above: Order Comment: Speci men Type: Unknown Relevant Clinical Information: Altered mental status, hypoglycemia, hypothermia Ordering Facility: [facility] Address: , , Performed By: #### G LUCOMETER #### [facility] Bilirubin [Mass/Vol] 0.4 mg/dL Normal 0.3-1.2 [facility] Comment on above: Order Comment: Speci men Type: Unknown Relevant Clinical Information: Altered mental status, hypoglycemia, hypothermia Ordering Facility: [facility] Address: , , Performed By: #### G LUCOMETER #### [facility] Bilirubin.indirect [Mass/Vol] 0.1 mg/dL Normal <0.4 [facility] Comment on above: Order Comment: Speci men Type: Unknown Relevant Clinical Information: Altered mental status, hypoglycemia, hypothermia Ordering Facility: [facility] Address: , , Performed By: #### G LUCOMETER #### [facility] Protein [Mass/Vol] 6.0 g/dL Normal 5.7-8.2 [facility] Comment on above: Order Comment: Speci men Type: Unknown Relevant Clinical Information: Altered mental status, hypoglycemia, hypothermia Ordering Facility: [facility] Address: , , Performed By: #### G LUCOMETER #### [facility] Hyaline casts detection in u rine sediment by light microscopyOrdered By: Helen Jovel on 08-02-2023 Hyaline casts LM Ql (Urine sed) 6 /LPF 0-5 [facility] Internal Med History Physica velasquez 08-02-2023 Internal Med History Physical [facility] [place] [place] [address] Internal Med History Physical Signed Patient: Chandler Minor MR#: [id number] : 1970 Acct: [id number] Age/Sex: 53 / M Date of Service: [...] micturition. Patient reports that he came to [place] to see his mom. Patient reports chronic [...] No Would like to be referred to Mental Health Coordinator for info?: No Smoking Status: Current [...] ORAL PM (more content not included)... Normal [facility] Ketones Auto test strip (U) [Mass/Vol]Ordered By: Helen Jovel on 08-02-2023 Ketones (U) [Mass/Vol] Negative Negative [facility] - Chemistry and C hemistry - challengeOrdered By: Christopher Santiago on 08-02-2023 Anion gap [Moles/Vol] 11 mmol/L 7-17 Gauri [facility] Lipid Panelon 08-02-2023 Cholesterol [Mass/Vol] 89 mg/dL Normal <200 [facility] Comment on above: Order Comment: Speci men Type: Unknown Relevant Clinical Information: Altered mental status, hypoglycemia, hypothermia Ordering Facility: [facility] Lab-CLIA#[id number] Address: [address] [place] [address] Performed By: #### L IPID #### [facility] Lab-CLIA#[id number] CLIA [id number] [address] [place] [address] Vincent Randaisi, DO,FCAP Cholesterol in HDL [Mass/Vol] 32 mg/dL Low 40-60 [facility] Comment on above: Order Comment: Speci men Type: Unknown Relevant Clinical Information: Altered mental status, hypoglycemia, hypothermia Ordering Facility: [facility] Lab-CLIA#[id number] Address: [address] [place] [address] Performed By: #### L IPID #### [facility] Lab-CLIA#[id number] CLIA [id number] [address] [place] [address] Vincrony Dialsi, DO,FCAP Cholesterol in LDL [Mass/Vol] 28 mg/dL Normal <100 [facility] Comment on above: Order Comment: Speci men Type: Unknown Relevant Clinical Information: Altered mental status, hypoglycemia, hypothermia Ordering Facility: [facility] Lab-CLIA#[id number] Address: [address] [place] [address] Performed By: #### L IPID #### [facility] Lab-CLIA#[id number] CLIA [id number] [address] [place] [address] Vincent Randaisi, DO,FCAP Triglyceride [Mass/Vol] 143 mg/dL Normal <149 [facility] Comment on above: Order Comment: Speci men Type: Unknown Relevant Clinical Information: Altered mental status, hypoglycemia, hypothermia Ordering Facility: [facility] Lab-CLIA#[id number] Address: [address] [place] [address] Performed By: #### L IPID #### [facility] Lab-CLIA#[id number] CLIA [id number] [address] [place] [address] Vincent Randaisi, DO,FCAP Lymphocytes/100 WBC Auto (Bl d)Ordered By: Christopher Santiago on 08-02-2023 Lymphocytes/100 WBC (Bld) 6.3 % 13.4-45.1 [facility] MCH Auto (RBC) [Entitic mass ]Ordered By: Christopher Santiago on 08-02-2023 MCH (RBC) [Entitic mass] 31.0 pg 27.2-33.0 [facility] MCHC Auto (RBC) [Mass/Vol]Or dered By: Christopher Santiago on 08-02-2023 MCHC (RBC) [Mass/Vol] 34.6 g/dL 31.9-35.1 [facility] MCV (mean corpuscular volume ) determinationOrdered By: Christopher Santiago on 08-02-2023 MCV (RBC) [Entitic vol] 89.8 fL 81.7-97.1 [facility] Monocytes Auto (Bld) [#/Vol] Ordered By: Christopher Santiago on 08-02-2023 Monocytes (Bld) [#/Vol] 0.50 10*3/uL 0.30-0.90 [facility] Monocytes/100 WBC Auto (Bld) Ordered By: Christopher Santiago on 08-02-2023 Monocytes/100 WBC (Bld) 3.4 % 4.0-12.7 [facility] Neurology Consult Noteon [place] [address] Neurology Consult Note Signed Patient: Chandler Minor MR#: [id number] : 1970 Acct: [id number] Age/Sex: 53 / M Date of Service: [...] No Would like to be referred to Mental Health Coordinator for info?: No Smoking Status: Current [...] (Jardiance) ergoc (more content not included)... Normal [facility] Neutrophils Auto (Bld) [#/Vo l]Ordered By: Christopher Santiago on 08-02-2023 Neutrophils (Bld) [#/Vol] 12.71 10*3/uL 1.70-7.00 [facility] Neutrophils/100 WBC Auto (Bl d)Ordered By: Christopher Santiago on 08-02-2023 Neutrophils/100 WBC (Bld) 87.4 % 41.1-75.9 [facility] No Panel InformationOrdered By: Helen Jovel on 08-02-2023 Urine Drug Screen Comment. See comment [facility] Comment on above: This method provides [...] on 08-02-2023 Pharmacy Creatinine Clearance (Chem 32 [facility] Oxygen (BldA) [Partial press ure]Ordered By: Christopher Santiago on 08-02-2023 Oxygen (Bld) [Partial pressure] 82.2 mm[Hg] 80-110 [facility] Platelet mean volume Auto (B ld) [Entitic vol]Ordered By: Christopher Santiago on 08-02-2023 Platelet mean volume (Bld) [Entitic vol] 11.4 fL 8.6-12.2 [facility] Platelets Auto (Bld) [#/Vol] Ordered By: Christopher Santiago on 08-02-2023 Platelets (Bld) [#/Vol] 285 10*3/uL 133-425 [facility] Potassium (Bld) [Moles/Vol]O rdered By: Chirstopher Santiago on 08-02-2023 Potassium [Moles/Vol] 4.5 mmol/L 3.5-5.1 [facility] Procalcitoninon 08-02-2023 Procalcitonin 0.11 ng/mL Normal <0.10 [facility] Comment on above: Order Comment: Speci men [...] The ProHOSP Randomized Controlled Trial. LAMAR 302: 06683 - 1066. Performed By: #### G LUCOMETER #### POC Protein Auto test strip (U) [Mass/Vol]Ordered By: Helen Jovel on 08-02-2023 Protein (U) [Mass/Vol] 300 mg/dL Negative [facility] RBC Auto (Bld) [#/Vol]Ordere d By: Christopher Santiago on 08-02-2023 RBC (Bld) [#/Vol] 4.51 10*6/uL 3.90-5.90 [facility] Screening urine 6-acetylmorp dirk measurementOrdered By: Helen Jovel on 08-02-2023 6-Monoacetylmorphine (6-ELTON) Screen Ql (U) Not detected None Detect [facility] Comment on above: Cutoff: 10ng/mL Screening urine cannabinoids detection using 50 ng/mL cutoffOrdered By: Helen Jovel on 08-02-2023 Tetrahydrocannabinol Screen method >50 ng/mL Ql (U) Not detected None Detect [facility] Comment on above: Cutoff: 50ng/mL Screening urine opiates test Ordered By: Helen Jovel on 08-02-2023 Opiates Screen Ql (U) Not detected None Detect [facility] Comment on above: Cutoff: 300ng/mL Serum or plasma C peptide me asurement (mass/volume)Ordered By: Helen Jovel on 08-02-2023 C peptide [Mass/Vol] 2.00 ng/mL 0.48-5.05 [facility] Serum or plasma alanine walton otransferase measurement with P-5'-P (enzymatic activity/Ordered By: Helen Jovel on 08-02-2023 ALT With P-5'-P [Catalytic activity/Vol] 14 U/L 10-49 [facility] Serum or plasma albumin regi urement by bromocresol purple (BCP) dye binding method (mOrdered By: Helen Jovel on 08-02-2023 Albumin BCP dye [Mass/Vol] 3.1 g/dL 3.4-5.0 [facility] Serum or plasma alkaline mari sphatase measurement (enzymatic activity/volume)Ordered By: Helen Jovel on 08-02-2023 ALP [Catalytic activity/Vol] 100 U/L 46-116 [facility] Serum or plasma aspartate am inotransferase measurement with P-5'-P (enzymatic activitOrdered By: Helen Jovel on 08-02-2023 AST With P-5'-P [Catalytic activity/Vol] 18 U/L 0-33 [facility] Serum or plasma calcium regi urement (mass/volume)Ordered By: Christopher Santiago on 08-02-2023 Calcium [Mass/Vol] 9.4 mg/dL 8.3-10.6 [facility] Serum or plasma chloride taryn surement (moles/volume)Ordered By: Christopher Santiago on 08-02-2023 Chloride [Moles/Vol] 106 mmol/L 98-107 [facility] Serum or plasma cholesterol measurement (mass/volume)Ordered By: Marcelino Abel on 08-02-2023 Cholesterol [Mass/Vol] 89 mg/dL 0-199 [facility] Serum or plasma creatinine m easurement (mass/volume)Ordered By: Christopher Santiago on 08-02-2023 Creatinine [Mass/Vol] 2.585 mg/dL 0.70-1.30 [facility] Serum or plasma free thyroxi ne (FT4) measurement (mass/volume)Ordered By: Helen Jovel on 08-02-2023 Free T4 [Mass/Vol] 1.16 ng/dL 0.89-1.76 [facility] Serum or plasma glucose regi urement (mass/volume)Ordered By: Christopher Santiago on 08-02-2023 Glucose [Mass/Vol] 30 mg/dL 74-106 [facility] Serum or plasma high density lipoprotein (HDL) cholesterol measurementOrdered By: Macrelino Abel on 08-02-2023 Cholesterol in HDL [Mass/Vol] 32 mg/dL 40-60 [facility] Serum or plasma potassium me asurement (moles/volume)Ordered By: Christopher Santiago on 08-02-2023 Potassium [Moles/Vol] 4.2 mmol/L 3.5-5.1 [facility] Serum or plasma sodium measu rement (moles/volume)Ordered By: Christopher Santiago on 08-02-2023 Sodium [Moles/Vol] 139 mmol/L 136-145 [facility] Serum or plasma total biliru bin measurement (mass/volume)Ordered By: Helen Jovel on 08-02-2023 Bilirubin [Mass/Vol] 0.4 mg/dL 0.3-1.2 [facility] Serum or plasma total carbon dioxide measurement (moles/volume)Ordered By: Christopher Santiago on 08-02-2023 CO2 [Moles/Vol] 26 mmol/L - [facility] Serum or plasma triglyceride measurement (mass/volume)Ordered By: Marcelino Abel on 08-02-2023 Triglyceride [Mass/Vol] 143 mg/dL <149 [facility] Serum or plasma urea nitroge n measurement (mass/volume)Ordered By: Christopher Santiago on 08-02-2023 Urea nitrogen [Mass/Vol] 48 mg/dL - [facility] Serum procalcitonin measurem entOrdered By: Helen Jovel on 08-02-2023 Procalcitonin [Mass/Vol] 0.11 ng/mL <0.10 [facility] Comment on above: *Use of Procalcitoni [...] The ProHOSP Randomized Controlled Trial. LAMAR 302: 30918 - 1066. Serum total protein measurem ent (mass/volume)Ordered By: Helen Jovel on 08-02-2023 Protein [Mass/Vol] 6.0 g/dL 5.7-8.2 [facility] Sodium (Bld) [Moles/Vol]Orde red By: Christopher Santiago on 08-02-2023 Sodium [Moles/Vol] 139 mmol/L 136-145 [facility] TSHon 08-02-2023 TSH Qn 1.144 m[IU]/L Normal 0.550-4.78 0 [facility] Comment on above: Order Comment: Speci men Type: Unknown Relevant Clinical Information: Altered mental status, hypoglycemia, hypothermia Ordering Facility: [facility] Address: , , Performed By: #### G LUCOMETER #### P[facility] TSH DL <= 0.005 mIU/L QnOrde red By: Helen Jovel on 08-02-2023 TSH Qn 1.144 m[IU]/L 0.550-4.78 0 [facility] UA Reflex to Micro and Cultu reon 08-02-2023 Appearance (U) Clear Normal Clear [facility] Comment on above: Order Comment: Speci men Type: Unknown Relevant Clinical Information: Altered mental status, hypoglycemia, hypothermia Ordering Facility: [facility] Lab-CLIA#[id number] Address: [address] [place] [address] Performed By: #### M G, CMP #### [facility] Lab-CLIA#[id number] CLIA [id number] [address] [place] [address] Phil Franklin, DO,FCAP Bilirubin Urine Negative Normal Negative [facility] Comment on above: Order Comment: Speci men Type: Unknown Relevant Clinical Information: Altered mental status, hypoglycemia, hypothermia Ordering Facility: [facility] Lab-CLIA#[id number] Address: [address] [place] [address] Performed By: #### M G, CMP #### [facility] Lab-CLIA#[id number] CLIA [id number] [address] [place] [address] Phil Franklin DO,FCAP Blood Urine Trace Abnormal Negative [facility] Comment on above: Order Comment: Speci men Type: Unknown Relevant Clinical Information: Altered mental status, hypoglycemia, hypothermia Ordering Facility: [facility] Lab-CLIA#[id number] Address: [address] [place] [address] Performed By: #### M Deacon, CMP #### [facility] Lab-CLIA#[id number] CLIA [id number] [address] [place] [address] Phil Franklin DO,FCAP Color (U) Yellow Normal Yellow [facility] Comment on above: Order Comment: Speci men Type: Unknown Relevant Clinical Information: Altered mental status, hypoglycemia, hypothermia Ordering Facility: [facility] Lab-CLIA#[id number] Address: [address] [place] [address] Performed By: #### M G, CMP #### [facility] Lab-CLIA#[id number] CLIA [id number] [address] [place] [address] Phil Franklin DO,FCAP Glucose Urine UA 500 mg/dL Abnormal Negative [facility] Comment on above: Order Comment: Speci men Type: Unknown Relevant Clinical Information: Altered mental status, hypoglycemia, hypothermia Ordering Facility: [facility] Lab-CLIA#[id number] Address: [address] [place] [address] Performed By: #### M G, CMP #### [facility] Lab-CLIA#[id number] CLIA [id number] [address] [place] [address] Phil Franklin, DO,FCAP Ketones Ql (U) Negative Normal Negative [facility] Comment on above: Order Comment: Speci men Type: Unknown Relevant Clinical Information: Altered mental status, hypoglycemia, hypothermia Ordering Facility: [facility] Lab-CLIA#[id number] Address: [address] [place] [address] Performed By: #### M Deacon, CMP #### [facility] Lab-CLIA#[id number] CLIA [id number] [address] [place] [address] Phil Franklin, DO,FCAP Leukocyte Esterase Ur Negative Normal Negative [facility] Comment on above: Order Comment: Speci men Type: Unknown Relevant Clinical Information: Altered mental status, hypoglycemia, hypothermia Ordering Facility: [facility] Lab-CLIA#[id number] Address: [address] [place] [address] Performed By: #### M Deacon, CMP #### [facility] Lab-CLIA#[id number] CLIA [id number] [address] [place] [address] Phil Franklin, DO,FCAP Nitrite Urine Negative Normal Negative [facility] Comment on above: Order Comment: Speci men Type: Unknown Relevant Clinical Information: Altered mental status, hypoglycemia, hypothermia Ordering Facility: [facility] Lab-CLIA#[id number] Address: [address] [place] [address] Performed By: #### Aislinn Worthy, CMP #### [facility] Lab-CLIA#[id number] CLIA [id number] [address] [place] [address] Phil Franklin, DO,FCAP pH (U) 5.0 [pH] Normal <=7.5 [facility] Comment on above: Order Comment: Speci men Type: Unknown Relevant Clinical Information: Altered mental status, hypoglycemia, hypothermia Ordering Facility: [facility] Lab-CLIA#[id number] Address: [address] [place] [address] Performed By: #### M Deacon, CMP #### [facility] Lab-CLIA#[id number] CLIA [id number] [address] [place] [address] Phil Franklin DO,FCAP Protein Urine 300 Abnormal Negative [facility] Comment on above: Order Comment: Speci men Type: Unknown Relevant Clinical Information: Altered mental status, hypoglycemia, hypothermia Ordering Facility: [facility] Lab-CLIA#[id number] Address: [address] [place] [address] Performed By: #### Aislinn Worthy, CMP #### [facility] Lab-CLIA#[id number] CLIA [id number] [address] [place] [address] Phil Franklin DO,FCAP Specific [place] Ur 1.015 Normal 1.005-1. 02 5 [facility] Comment on above: Order Comment: Speci men Type: Unknown Relevant Clinical Information: Altered mental status, hypoglycemia, hypothermia Ordering Facility: [facility] Lab-CLIA#[id number] Address: [address] [place] [address] Performed By: #### Aislinn Worthy, CMP #### [facility] Lab-CLIA#[id number] CLIA [id number] [address] [place] [address] Phil Franklin DO,FCAP Urine Type Clean Catch Normal [facility] Comment on above: Order Comment: Speci men Type: Unknown Relevant Clinical Information: Altered mental status, hypoglycemia, hypothermia Ordering Facility: [facility] Lab-CLIA#[id number] Address: [address] [place] [address] Performed By: #### Aislinn Worthy, CMP #### [facility] Lab-CLIA#[id number] CLIA [id number] [address] [place] [address] Phil Franklin DO,FCAP Urobilinogen Urine 0.2 E.U./dL Normal 0-2.0 [facility] Comment on above: Order Comment: Speci men Type: Unknown Relevant Clinical Information: Altered mental status, hypoglycemia, hypothermia Ordering Facility: [facility] Lab-CLIA#[id number] Address: [address] [place] [address] Performed By: #### M G, CMP #### [facility] Lab-CLIA#[id number] CLIA [id number] [address] [place] [address] Phil Franklin DO, FCAP USRNLMTon 08-02-2023 [place] [address] Ultrasound Report Signed Patient: Chandler Minor MR#: [id number] 02 : 1970 Acct: [id number] Age/Sex: 53 / M ADM Date: 08/02/23 Loc: [email or web address] [id number]: Helen Jovel M.D. Ordering Physician: Helen Jovel M.D. Date of Service: Procedure(s): US renal limited retroper Accession Number(s): [id number] cc: Helen Jovel M.D. RENAL ULTRASOUND TECHNIQUE: [...] By: Jorge A Yang D.O. 08/02/23 1244 [id number] Normal [facility] Urine Drug Screen of Abuseon 08-02-2023 Amphetamine Screen Ur Not detected Normal None Detect [facility] Comment on above: Order Comment: Speci men Type: Unknown Relevant Clinical Information: Altered mental status, hypoglycemia, hypothermia Ordering Facility: [facility] Address: , , Result Comment: Cuto ff: 500ng/mL Performed By: #### G LUCOMETER #### [facility] Barbiturate Screen Ur Not detected Normal None Detect [facility] Comment on above: Order Comment: Speci men Type: Unknown Relevant Clinical Information: Altered mental status, hypoglycemia, hypothermia Ordering Facility: [facility] Address: , , Result Comment: Cuto ff: 200ng/mL Performed By: #### G LUCOMETER #### [facility] Benzodiazepines Screen Ur Not detected Normal None Detect [facility] Comment on above: Order Comment: Speci men Type: Unknown Relevant Clinical Information: Altered mental status, hypoglycemia, hypothermia Ordering Facility: [facility] Address: , , Result Comment: Cuto ff: 200ng/mL Performed By: #### G LUCOMETER #### [facility] Buprenorphine Screen Ur Not detected Normal None Detect [facility] Comment on above: Order Comment: Speci men Type: Unknown Relevant Clinical Information: Altered mental status, hypoglycemia, hypothermia Ordering Facility: [facility] Address: , , Result Comment: Cuto ff: 5ng/mL Performed By: #### G LUCOMETER #### [facility] Cannabinoid Screen Urine Not detected Normal None Detect [facility] Comment on above: Order Comment: Speci men Type: Unknown Relevant Clinical Information: Altered mental status, hypoglycemia, hypothermia Ordering Facility: [facility] Address: , , Result Comment: Cuto ff: 50ng/mL Performed By: #### G LUCOMETER #### [facility] Cocaine Screen Ur Not detected Normal None Detect [facility] Comment on above: Order Comment: Speci men Type: Unknown Relevant Clinical Information: Altered mental status, hypoglycemia, hypothermia Ordering Facility: [facility] Address: , , Result Comment: Cuto ff: 150ng/mL Performed By: #### G LUCOMETER #### [facility] Fentanyl Screen Ur Not detected Normal None Detect [facility] Comment on above: Order Comment: Speci men Type: Unknown Relevant Clinical Information: Altered mental status, hypoglycemia, hypothermia Ordering Facility: [facility] Address: , , Result Comment: Cuto ff: 1.0 ng/mL Quinine and Quinidine may interfere with Fentanyl screening. Performed By: #### G LUCOMETER #### [facility] Heroin (6-AM) Screen Ur Not detected Normal None Detect [facility] Comment on above: Order Comment: Speci men Type: Unknown Relevant Clinical Information: Altered mental status, hypoglycemia, hypothermia Ordering Facility: [facility] Address: , , Result Comment: Cuto ff: 10ng/mL Performed By: #### G LUCOMETER #### [facility] Methadone Screen Ur Not detected Normal None Detect [facility] Comment on above: Order Comment: Speci men Type: Unknown Relevant Clinical Information: Altered mental status, hypoglycemia, hypothermia Ordering Facility: [facility] Address: , , Result Comment: Cuto ff: 150ng/mL Performed By: #### G LUCOMETER #### [facility] Opiate Screen Ur Not detected Normal None Detect [facility] Comment on above: Order Comment: Speci men Type: Unknown Relevant Clinical Information: Altered mental status, hypoglycemia, hypothermia Ordering Facility: [facility] Address: , , Result Comment: Cuto ff: 300ng/mL Performed By: #### G LUCOMETER #### [facility] Oxycodone Screen Ur Not detected Normal None Detect [facility] Comment on above: Order Comment: Speci men Type: Unknown Relevant Clinical Information: Altered mental status, hypoglycemia, hypothermia Ordering Facility: [facility] Address: , , Result Comment: Cuto ff: 100ng/mL Performed By: #### G LUCOMETER #### [facility] Urine Drug Message Normal [facility] Comment on above: Order Comment: Speci [...] Hyaline Casts Urine 6 /LPF High 0-5 [facility] Comment on above: Order Comment: Speci men Type: Unknown Relevant Clinical Information: Altered mental status, hypoglycemia, hypothermia Ordering Facility: [facility] Lab-CLIA#[id number] Address: [address] [place] [address] Performed By: #### M G, CMP #### [facility] Lab-CLIA#[id number] CLIA [id number] [address] [place] [address] Vincrony Franklin, DO,FCAP RBC LM.HPF (Urine sed) [#/Area] 1 /[HPF] Normal 0-5 [facility] Comment on above: Order Comment: Speci men Type: Unknown Relevant Clinical Information: Altered mental status, hypoglycemia, hypothermia Ordering Facility: [facility] Lab-CLIA#[id number] Address: [address] [place] [address] Performed By: #### Aislinn G, CMP #### [facility] Lab-CLIA#[id number] CLIA [id number] [address] [place] [address] Phil Franklin, DO,FCAP Squamous Epithelial Cell Urine 0 /HPF Normal 0-4 [facility] Comment on above: Order Comment: Speci men Type: Unknown Relevant Clinical Information: Altered mental status, hypoglycemia, hypothermia Ordering Facility: [facility] Lab-CLIA#[id number] Address: [address] [place] [address] Performed By: #### Aislinn Worthy, CMP #### [facility] Lab-CLIA#[id number] CLIA [id number] [address] [place] [address] Phil Franklin, DO,FCAP Urine Bacteria None Normal None [facility] Comment on above: Order Comment: Speci men Type: Unknown Relevant Clinical Information: Altered mental status, hypoglycemia, hypothermia Ordering Facility: [facility] Lab-CLIA#[id number] Address: [address] [place] [address] Performed By: #### M G, CMP #### [facility] Lab-CLIA#[id number] CLIA [id number] [address] [place] [address] Vincrnoy Franklin, DO,FCAP WBC LM.HPF (Urine sed) [#/Area] 0 /[HPF] Normal 0-4 [facility] Comment on above: Order Comment: Speci men Type: Unknown Relevant Clinical Information: Altered mental status, hypoglycemia, hypothermia Ordering Facility: [facility] Lab-CLIA#[id number] Address: [address] [place] [address] Performed By: #### M G, CMP #### [facility] Lab-CLIA#[id number] CLIA [id number] [address] [place], [place] [address] Phil Franklin DO, FCAP Urine blood detectionOrdered By: Helen Jovel on 08-02-2023 RBC Ql (U) Trace Negative [facility] Urine buprenorphine screenOr dered By: Helen Jovel on 08-02-2023 Buprenorphine Screen Ql (U) Not detected None Detect [facility] Comment on above: Cutoff: 5ng/mL Urine colorOrdered By: Vicente Jovel on 08-02-2023 Color (U) Yellow Yellow [facility] Urine fentanyl detection by screening methodOrdered By: Helen Jovel on 08-02-2023 fentaNYL Screen Ql (U) Not detected None Detect [facility] Comment on above: Cutoff: 1.0 ng/mLQui nine and Quinidine may interfere with Fentanyl screening. Urine glucose measurement by automated test strip (mass/volume)Ordered By: Helen Jovel on 08-02-2023 Glucose Auto test strip (U) [Mass/Vol] 500 mg/dL Negative [facility] Urine leukocyte esterase det ection by automated test stripOrdered By: Helen Jovel on 08-02-2023 Leukocyte esterase Auto test strip Ql (U) Negative Negative [facility] Urine methadone screenOrdere d By: Helen Jovel on 08-02-2023 Methadone Screen Ql (U) Not detected None Detect [facility] Comment on above: Cutoff: 150ng/mL Urine nitrite detection by a utomated test stripOrdered By: Helen Jovel on 08-02-2023 Nitrite Auto test strip Ql (U) Negative Negative [facility] Urine pHOrdered By: Helen Jovel on 08-02-2023 pH (U) 5.0 [pH] 0-7.5 [facility] Urine specific gravity measu rementOrdered By: Helen Jovel on 08-02-2023 Specific gravity (U) [Rel density] 1.015 1.005-1.02 5 [facility] Urine urobilinogen measureme ntOrdered By: Helen Jovel on 08-02-2023 Urobilinogen Ql (U) 0.2 E.U./dL 0-2.0 [facility] WBC Auto (Bld) [#/Vol]Ordere d By: Christopher Santiago on 08-02-2023 WBC (Bld) [#/Vol] 14.5 10*3/uL 4.5-11.0 [facility] Whole blood ionized calcium measurement adjusted to pH 7.4 (moles/volume)Ordered By: Christopher Santiago on 08-02-2023 Calcium.ionized adjusted to pH 7.4 (Bld) [Moles/Vol] 1.19 mmol/L 1.01-1.33 [facility] [id number] 08-02-2023 [id number] [place] [address] XRay Report Signed Patient: Chandler Minor MR#: [id number] 02 : 1970 Acct: [id number] Age/Sex: 53 / M ADM Date: 08/02/23 Loc: ER. Attending Dr: Ordering Physician: Helen Jovel M.D. Date of Service: Procedure(s): XR chest 1V portable Accession Number(s): [id number] cc: Helen Jovel M.D. CHEST COMPARISON: None [...] Signed By: Og Yang D.O. 08/02/23 0715 [id number] Normal [facility] oxyCODONE Screen Ql (U)Order ed By: Helen Jovel on 08-02-2023 oxyCODONE Ql (U) Not detected None Detect [facility] Comment on above: Cutoff: 100ng/mL pH (BldA)Ordered By: Christopher franklin on 08-02-2023 pH (Bld) 7.34 [pH] 7.35-7.45 [facility] Patient Provided Health Data on 07-29-2023 Patient Provided Health Data [id number] TIFF [facility] Progress Noteson 07-24-2023 [employer] Authentication Interface Message Text Longstanding PDR OU, [...] Dilate OU OCT mac OU Normal [facility] Right reti na by OCTon 07-24-2023 [facility] Radiology Study observation (narrative) [facility] Patient Handouton 07-12-2023 Patient Handout [id number]#[id number] TIFF [facility] INTRAVITREAL INJECTION, PHAR MACOLOGIC AGENT - [...] mL Route: Intravitreal, Site: Right Eye Lot: [id number], Expiration date: 06/27/2023 Left Eye Preparation included 10% betadine to eyelids. A 30 gauge needle was used. Injection Medications: 1.25 mg bevacizumab 1.25MG/0.05 mL Route: Intravitreal, Site: Left Eye Lot: [id number], Expiration date: 06/27/2023 Post-op Right Eye Post [...] written and verbal post procedure care education. [facility] Progress Noteson 06-26-2023 [employer] Authentication Interface Message Text Longstanding PDR OU, DME, mac ischemia OU Sp PRP OU, Repeated injections - last 10/2022 Did not notice any real improvement with injections [place] 00090 Vision worse per pt A/P 1. DM [...] Dilate OU OCT mac OU Normal [facility] System Study observation Right reti na by 06-26-2023 [facility] Radiology Study observation (narrative) [facility] Basic Metabolic Panelon Anion gap [Moles/Vol] Not performed Normal 6.0-15.0 [facility] Comment on above: Performed By: #### C BC, BMP, MG #### [facility] [address] [place] [address] [place] Calcium [Mass/Vol] 8.7 mg/dL Normal 8.6-10.3 [facility] Comment on above: Performed By: #### C BC, BMP, MG #### [facility] [address] [place] [address] [place] Chloride [Moles/Vol] 98 mmol/L Normal 98-107 [facility] Comment on above: Performed By: #### C BC, BMP, MG #### [facility] [address] [place] [address] [place] CO2 [Moles/Vol] 31.8 mmol/L High 21.0-31.0 [facility] Comment on above: Performed By: #### C BC, BMP, MG #### [facility] [address] [place] [address] [place] Creatinine [Mass/Vol] 2.57 mg/dL High 0.70-1.30 [facility] Comment on above: Performed By: #### C BC, BMP, MG #### [facility] [address] [place] [id number] [place] Creatinine Clr Calc Pharmacy 38.54 [facility] Comment on above: Performed By: #### C BC, BMP, MG #### [facility] [address] [place] [id number] [place] GFR/1.73 sq M.predicted MDRD (S/P/Bld) [Vol rate/Area] 29.357 mL/min/{1.73_m2} Normal [facility] Comment on above: Performed By: #### C BC, BMP, MG #### [facility] [address] Glucose [Mass/Vol] 97 mg/dL Normal 70-100 [facility] Comment on above: Result Comment: [facility] Glucose Reference Range is dependent on time and content of last meal. Glucose of more than 200 mg/dL in a nonstressed, ambulatory subject supports the diagnosis of Diabetes Mellitus. ADA recommended reference range Performed By: #### C BC, BMP, MG #### [facility] [address] Potassium Normal 3.5-5.1 [facility] Comment on above: Result Comment: Spec imen hemolyzed, redraw requested Performed By: #### C BC, BMP, MG #### [facility] [address] Sodium Normal 136-145 [facility] Comment on above: Result Comment: Spec imen hemolyzed, redraw requested Performed By: #### C BC, BMP, MG #### [facility] [address] Urea nitrogen [Mass/Vol] 56 mg/dL High 7-25 [facility] Comment on above: Performed By: #### C BC, BMP, MG #### [facility] [address] Basophils Auto (Bld) [#/Vol] Ordered By: Albert Woods on 04-18-2023 Basophils (Bld) [#/Vol] 0.0 10*3/uL 0.0-0.2 [facility] Basophils/100 WBC Auto (Bld) Ordered By: Albert Woods on 04-18-2023 Basophils/100 WBC (Bld) 0.6 % . [facility] Calcium [Mass/volume] in Ser um or PlasmaOrdered By: Albert Woods on 04-18-2023 Calcium [Mass/Vol] 8.7 mg/dL 8.6-10.3 [facility] Carbon dioxide, total [Moles /volume] in Serum or PlasmaOrdered By: Albert Woods on 04-18-2023 CO2 [Moles/Vol] 31.8 mmol/L 21.0-31.0 [facility] Chloride [Moles/volume] in S guadalupe or PlasmaOrdered By: Albert Woods on 04-18-2023 Chloride [Moles/Vol] 98 mmol/L 98-107 [facility] Complete Blood Count Auto Di ffon 04-18-2023 Basophils (Bld) [#/Vol] 0.0 10*3/uL Normal 0.0-0.2 [facility] Comment on above: Result Comment: PERF ORMED BY: [place] [address] PATHOLOGIST [employer]ER MOOK BROWN M.D. Performed By: #### C BC, BMP, MG #### [facility] [address] [place] [address] Basophils/100 WBC (Bld) 0.6 % Normal . [facility] Comment on above: Performed By: #### C BC, BMP, MG #### [facility] [address] [place] [address] [place] Eosinophils (Bld) [#/Vol] 0.3 10*3/uL Normal 0.0-0.45 [facility] Comment on above: Performed By: #### C BC, BMP, MG #### [facility] [address] [place] [address] [place] Eosinophils/100 WBC (Bld) 4.2 % Normal . [facility] Comment on above: Performed By: #### C BC, BMP, MG #### [facility] [address] Erythrocyte distribution width (RBC) [Ratio] 16.2 % High 12.0-14.8 [facility] Comment on above: Performed By: #### C BC, BMP, MG #### [address] Hematocrit (Bld) [Volume fraction] 38.4 % Low 38.8-50.0 [facility] Comment on above: Performed By: #### C BC, BMP, MG #### [address] Hemoglobin (Bld) [Mass/Vol] 12.8 g/dL Low 13.0-17.0 [facility] Comment on above: Performed By: #### C BC, BMP, MG #### [address] Lymphocytes (Bld) [#/Vol] 1.3 10*3/uL Normal 1.00-4.8 [facility] Comment on above: Performed By: #### C BC, BMP, MG #### [address] Lymphocytes/100 WBC (Bld) 17.3 % Normal . [facility] Comment on above: Performed By: #### C BC, BMP, MG #### [address] MCH (RBC) [Entitic mass] 29.7 pg Normal 27.5-35.2 [facility] Comment on above: Performed By: #### C BC, BMP, MG #### [address] MCV (RBC) [Entitic vol] 89.5 fL Normal 83.5-101 [facility] Comment on above: Performed By: #### C BC, BMP, MG #### [address] Mean Corpuscular HGB Conc 33.2 g/dL Normal 32.5-35.6 [facility] Comment on above: Performed By: #### C BC, BMP, MG #### [address] Monocytes (Bld) [#/Vol] 0.8 10*3/uL Normal 0.0-0.8 [facility] Comment on above: Performed By: #### C BC, BMP, MG #### [place] [address] [place] Monocytes/100 WBC (Bld) 10.8 % Normal . [facility] Comment on above: Performed By: #### C BC, BMP, MG #### [facility] [address] Neutrophils (Bld) [#/Vol] 5.0 10*3/uL Normal 1.8-7.7 [facility] Comment on above: Performed By: #### C BC, BMP, MG #### [facility] [address] Neutrophils/100 WBC (Bld) 67.1 % Normal . [facility] Comment on above: Performed By: #### C BC, BMP, MG #### [facility] [address] NRBC% 0.1 /100{WBC} Normal 0-0.5 [facility] Comment on above: Performed By: #### C BC, BMP, MG #### [facility] [address] Platelet mean volume (Bld) [Entitic vol] 9.6 fL Normal 6.6-10.1 [facility] Comment on above: Performed By: #### C BC, BMP, MG #### [facility] [address] Platelets (Bld) [#/Vol] 199 10*3/uL Normal 150-450 [facility] Comment on above: Performed By: #### C BC, BMP, MG #### [facility] [address] RBC (Bld) [#/Vol] 4.29 10*6/uL Normal 3.90-5.60 [facility] Comment on above: Performed By: #### C BC, BMP, MG #### [facility] [address] [place] [address] [place] WBC (Bld) [#/Vol] 7.4 10*3/uL Normal 4.1-10.5 [facility] Comment on above: Performed By: #### C BC, BMP, MG #### [facility] [address] [place] [address] Creatinine [Mass/volume] in Serum or PlasmaOrdered By: Albert Woods on 04-18-2023 Creatinine [Mass/Vol] 2.57 mg/dL 0.70-1.30 [facility] Eosinophils Auto (Bld) [#/Vo l]Ordered By: Albert Woods on 04-18-2023 Eosinophils (Bld) [#/Vol] 0.3 10*3/uL 0.0-0.45 [facility] Eosinophils/100 WBC Auto (Bl d)Ordered By: Albert Woods on 04-18-2023 Eosinophils/100 WBC (Bld) 4.2 % . [facility] Erythrocyte distribution wid th Auto (RBC) [Ratio]Ordered By: Albert Woods on 04-18-2023 Erythrocyte distribution width (RBC) [Ratio] 16.2 % 12.0-14.8 [facility] Free K+L LT Chains, Qn, Son 04-18-2023 Free [place] Light Chains, S 57.0 mg/L High 3.3-19.4 [facility] Comment on above: Performed By: #### R EDRAW NA, REDRAW MG, REDRAW K #### [facility] [address] [place] [address] Free Lambda Light Chains, S 31.9 mg/L High 5.7-26.3 [facility] Comment on above: Performed By: #### R EDRAW NA, REDRAW MG, REDRAW K #### [facility] [address] [place] [address] [place]/Lambda Ratio, S 1.79 High 0.26-1.65 [facility] Comment on above: Result Comment: Perf ormed at: CB - [facility] [address] [id number] Information Assurance Officer: Phil Chua PhD, Phone: [phone] PERFORMED BY: [place] [address] PATHOLOGIST [employer]EL [employer]ER MOOK BROWN M.D. Performed By: #### R EDRAW NA, REDRAW MG, REDRAW K #### [facility] [address] [place] [address] [place] Glucose Glucometer (BldC) [M ass/Vol]Ordered By: Kameron Dos Santos on 04-18-2023 Glucose [Mass/Vol] 133 mg/dL [facility] Comment on above: Random Glucose Refer ence Range is dependent on time and content of last meal. Glucose of more than 200 mg/dL in a nonstressed, ambulatory subject supports the diagnosis of Diabetes Mellitus. Glucose Poct Glucometerson 0 04-18-2023 Commemt1 Glu2: Cleaned Meter [facility] Comment on above: Result Comment: PERF ORMED BY: [place] [address] PATHOLOGIST STEEL CHECKER MOOK BROWN M.D. Performed By: #### G ANTHONY #### Point of Care testing , Glucose [Mass/Vol] 133 mg/dL Normal [facility] Comment on above: Result Comment: [place] Glucose Reference Range is dependent on time and content of last meal. Glucose of more than 200 mg/dL in a nonstressed, ambulatory subject supports the diagnosis of Diabetes Mellitus. Performed By: #### G ANTHONY #### Point of Care testing , Commemt1 Glu2: Cleaned Meter [facility] Comment on above: Result Comment: PERF ORMED BY: [place] [address] PATHOLOGIST [employer]EL CHECKER MOOK BROWN M.D. Performed By: #### R EDRAW NA, REDRAW MG, REDRAW K #### [place] [address] [place] Glucose [Mass/Vol] 114 mg/dL Normal [facility] Comment on above: Result Comment: [place] [facility] Glucose Reference Range is dependent on time and content of last meal. Glucose of more than 200 mg/dL in a nonstressed, ambulatory subject supports the diagnosis of Diabetes Mellitus. Performed By: #### R EDRAW NA, REDRAW MG, REDRAW K #### [facility] [address] Glucose [Mass/volume] in Ser um or PlasmaOrdered By: Albert Woods on 04-18-2023 Glucose [Mass/Vol] 97 mg/dL 70-100 [facility] Comment on above: ADA recommended refe rence rangeRandom Glucose Reference Range is dependent on time and content of last meal. Glucose of more than 200 mg/dL in a nonstressed, ambulatory subject supports the diagnosis of Diabetes Mellitus. Hematocrit Auto (Bld) [Volum e fraction]Ordered By: Albert Woods on 04-18-2023 Hematocrit (Bld) [Volume fraction] 38.4 % 38.8-50.0 [facility] Hemoglobin [Mass/volume] in BloodOrdered By: Albert Woods on 04-18-2023 Hemoglobin (Bld) [Mass/Vol] 12.8 g/dL 13.0-17.0 [facility] Immunofixation, (LOVE), Urine on 04-18-2023 Immunofixation, (LOVE), Urine Comment: Normal . [facility] Comment on above: Result Comment: Pres ence of monoclonal protein is unclear at this time. Suggest repeat in 3 to 6 months if clinically indicated. Performed at: - [facility] [id number] Information Assurance Officer: Phil Chua PhD, Phone: [phone] PERFORMED BY: [address] [place] [address] PATHOLOGIST [employer] CHECKER MOOK BROWN M.D. Performed By: #### R EDRAW NA, REDRAW MG, REDRAW K #### [facility] [address] [place] [address] [place] Immunofixation,Serumon 04-18 Immunofixation, Serum Normal . [facility] Comment on above: Result Comment: No m onoclonality detected. Performed By: #### R EDRAW NA, REDRAW MG, REDRAW K #### [facility] [address] [place] [address] [place] Immunoglobulin A, Serum 149 mg/dL Normal 90-386 [facility] Comment on above: Performed By: #### R EDRAW NA, REDRAW MG, REDRAW K #### [facility] [address] Immunoglobulin G 565 mg/dL Low 603-1613 [facility] Comment on above: Performed By: #### R EDRAW NA, REDRAW MG, REDRAW K #### [facility] [address] Immunoglobulin M, Serum 36 mg/dL Normal 20-172 [facility] Comment on above: Performed By: #### R EDRAW NA, REDRAW MG, REDRAW K #### [facility] [address] Leukocytes [#/volume] correc hamlet for nucleated erythrocytes in Blood by Automated counOrdered By: Albert Woods on 04-18-2023 WBC corrected for nucl RBC Auto (Bld) [#/Vol] 7.4 10*3/uL 4.1-10.5 [facility] Lymphocytes Auto (Bld) [#/Vo l]Ordered By: Albert Woods on 04-18-2023 Lymphocytes (Bld) [#/Vol] 1.3 10*3/uL 1.00-4.8 [facility] Lymphocytes/100 WBC Auto (Bl d)Ordered By: Albert Woods on 04-18-2023 Lymphocytes/100 WBC (Bld) 17.3 % . [facility] MCH Auto (RBC) [Entitic mass ]Ordered By: Albert Woods on 04-18-2023 MCH (RBC) [Entitic mass] 29.7 pg 27.5-35.2 [facility] MCHC Auto (RBC) [Mass/Vol]Or dered By: Albert Woods on 04-18-2023 MCHC (RBC) [Mass/Vol] 33.2 g/dL 32.5-35.6 [facility] MCV Auto (RBC) [Entitic vol] Ordered By: Albert Woods on 04-18-2023 MCV (RBC) [Entitic vol] 89.5 fL 83.5-101 [facility] Magnesiumon 04-18-2023 Magnesium Normal 1.9-2.7 [facility] Comment on above: Result Comment: Spec imen hemolyzed, redraw requested PERFORMED BY: [place] [address] PATHOLOGIST [employer]EL CHECKER MOOK BROWN M.D. Performed By: #### C BC, BMP, MG #### [address] Magnesium [Mass/volume] in S guadalupe or PlasmaOrdered By: Kameron Dos Santos on 04-18-2023 Magnesium [Mass/Vol] 2.4 mg/dL 1.9-2.7 [facility] Monocytes Auto (Bld) [#/Vol] Ordered By: Albert Woods on 04-18-2023 Monocytes (Bld) [#/Vol] 0.8 10*3/uL 0.0-0.8 [facility] Monocytes/100 WBC Auto (Bld) Ordered By: Albert Woods on 04-18-2023 Monocytes/100 WBC (Bld) 10.8 % . [facility] Neutrophils Auto (Bld) [#/Vo l]Ordered By: Albert Woods on 04-18-2023 Neutrophils (Bld) [#/Vol] 5.0 10*3/uL 1.8-7.7 [facility] Neutrophils/100 WBC Auto (Bl d)Ordered By: Albert Woods on 04-18-2023 Neutrophils/100 WBC (Bld) 67.1 % . [facility] No Panel InformationOrdered By: Kameron Dos Santos on 04-18-2023 Bedside Glucose Comment Glu2: cleaned meter [facility] No Panel InformationOrdered By: Albert Woods on 04-18-2023 Estimated GFR (CKD-EPI) 29.357 mL/Min [facility] Creatinine Clearance (Chem 38.54 [facility] Nucleated erythrocytes [Pres ence] in Blood by Automated countOrdered By: Albert Woods on 04-18-2023 Nucleated RBC Auto Ql (Bld) 0.1 /100{WBC} 0-0.5 [facility] Platelet mean volume Auto (B ld) [Entitic vol]Ordered By: Albert Woods on 04-18-2023 Platelet mean volume (Bld) [Entitic vol] 9.6 fL 6.6-10.1 [facility] Platelets Auto (Bld) [#/Vol] Ordered By: Albert Woods on 04-18-2023 Platelets (Bld) [#/Vol] 199 10*3/uL 150-450 [facility] Potassium [Moles/volume] in Serum or PlasmaOrdered By: Kameron Dos Santos on 04-18-2023 Potassium [Moles/Vol] 3.8 mmol/L 3.5-5.1 [facility] RBC Auto (Bld) [#/Vol]Ordere d By: Albert Woods on 04-18-2023 RBC (Bld) [#/Vol] 4.29 10*6/uL 3.90-5.60 [facility] Redraw Magnesiumon 3 Magnesium [Mass/Vol] 2.4 mg/dL Normal 1.9-2.7 [facility] Comment on above: Result Comment: PERF ORMED BY: [place] [address] PATHOLOGIST STEEL CHECKER MOOK BROWN M.D. Performed By: #### R EDRAW NA, REDRAW MG, REDRAW K #### [facility] [address] Redraw Potassiumon 3 Potassium [Moles/Vol] 3.8 mmol/L Normal 3.5-5.1 [facility] Comment on above: Performed By: #### R EDRAW NA, REDRAW MG, REDRAW K #### [facility] [address] Redraw Sodiumon 04-18-2023 Sodium [Moles/Vol] 138 mmol/L Normal 136-145 [facility] Comment on above: Performed By: #### R EDRAW NA, REDRAW MG, REDRAW K #### [facility] [address] [place] [address] Serum or plasma anion gap de terminationOrdered By: Albert Woods on 04-18-2023 Anion gap [Moles/Vol] TNP [facility] Comment on above: Test not performed Sodium [Moles/volume] in Ser um or PlasmaOrdered By: Kameron Dos Santos on 04-18-2023 Sodium [Moles/Vol] 138 mmol/L 136-145 [facility] Urea nitrogen [Mass/volume] in Serum or PlasmaOrdered By: Albert Woods on 04-18-2023 Urea nitrogen [Mass/Vol] 56 mg/dL 7-25 [facility] WBC Auto (Bld) [#/Vol]Ordere d By: Albert Woods on 04-18-2023 WBC (Bld) [#/Vol] 7.4 10*3/uL 4.1-10.5 [facility] A1C with Estimated Average G john 04-17-2023 Glucose [Mass/Vol] 315 mg/dL Normal [facility] Comment on above: Result Comment: PERF ORMED BY: [place] [address] PATHOLOGIST [employer]EL CHECKER MOOK BROWN M.D. Performed By: #### R EDLAVELL AMAYA, REDRAW MG, REDRAW K #### [address] HbA1c (Bld) [Mass fraction] 12.6 % High 4.3-5.6 [facility] Comment on above: Result Comment: Incr eased risk for diabetes: 5.7 - 6.4 diabetes: >6.4 glycemic control for adults with diabetes: <7.0 Performed By: #### R EDRALeann NA, REDRAW MG, REDRAW K #### [facility] [address] [place] [address] Basic Metabolic Panelon Anion gap [Moles/Vol] 10.4 mmol/L Normal 6.0-15.0 [facility] Comment on above: Performed By: #### M G, BMP, CBC #### [facility] [address] [place] [id number] [place] Calcium [Mass/Vol] 8.5 mg/dL Low 8.6-10.3 [facility] Comment on above: Performed By: #### DIMA Matthews, CBC #### [facility] [address] [place] [id number] [place] Chloride [Moles/Vol] 100 mmol/L Normal 98-107 [facility] Comment on above: Performed By: #### DIMA Matthews, CBC #### [facility] [address] [place] [id number] [place] CO2 [Moles/Vol] 30.3 mmol/L Normal 21.0-31.0 [facility] Comment on above: Performed By: #### DIMA Matthews, CBC #### [facility] [address] [place] [phone] [place] Creatinine [Mass/Vol] 2.66 mg/dL High 0.70-1.30 [facility] Comment on above: Performed By: #### DIMA Matthews, CBC #### [facility] [address] [place] [address] [place] Creatinine Clr Calc Pharmacy 36.86 [facility] Comment on above: Performed By: #### DIMA Matthews, CBC #### [facility] [address] [place] [phone] [place] GFR/1.73 sq M.predicted MDRD (S/P/Bld) [Vol rate/Area] 28.169 mL/min/{1.73_m2} [facility] Comment on above: Performed By: #### DIMA Matthews, CBC #### [facility] [address] [place] [id number] [place] Glucose [Mass/Vol] 100 mg/dL Normal 70-100 [facility] Comment on above: Result Comment: [place] Glucose Reference Range is dependent on time and content of last meal. Glucose of more than 200 mg/dL in a nonstressed, ambulatory subject supports the diagnosis of Diabetes Mellitus. ADA recommended reference range Performed By: #### DIMA Matthews, CBC #### [facility] [address] Potassium [Moles/Vol] 3.7 mmol/L Normal 3.5-5.1 [facility] Comment on above: Performed By: #### DIMA Matthews, CBC #### [facility] [address] Sodium [Moles/Vol] 137 mmol/L Normal 136-145 [facility] Comment on above: Performed By: #### DIMA Matthews, CBC #### [facility] [address] Urea nitrogen [Mass/Vol] 57 mg/dL High 7- [facility] Comment on above: Performed By: #### DIMA Matthews, CBC #### [address] Complete Blood Count Auto Di ffon 04-17-2023 Basophils (Bld) [#/Vol] 0.0 10*3/uL Normal 0.0-0.2 [facility] Comment on above: Result Comment: PERF ORMED BY: [place] [address] PATHOLOGIST [employer]EL CHECKER MOOK BROWN M.D. Performed By: #### DIMA Mattehws, CBC #### [facility] [address] [place] [address] [place] Basophils/100 WBC (Bld) 0.5 % Normal . [facility] Comment on above: Performed By: #### DIMA Matthews, CBC #### [facility] [address] [place] [address] [place] Eosinophils (Bld) [#/Vol] 0.3 10*3/uL Normal 0.0-0.45 [facility] Comment on above: Performed By: #### DIMA Matthews, CBC #### [facility] [address] [place] [address] [place] Eosinophils/100 WBC (Bld) 4.0 % Normal . [facility] Comment on above: Performed By: #### DIMA Matthews, CBC #### [facility] [address] Erythrocyte distribution width (RBC) [Ratio] 16.4 % High 12.0-14.8 [facility] Comment on above: Performed By: #### DIMA Matthews, CBC #### [address] Hematocrit (Bld) [Volume fraction] 37.5 % Low 38.8-50.0 [facility] Comment on above: Performed By: #### DIMA Matthews, CBC #### [address] Hemoglobin (Bld) [Mass/Vol] 12.6 g/dL Low 13.0-17.0 [facility] Comment on above: Performed By: #### DIMA Matthews, CBC #### [address] Lymphocytes (Bld) [#/Vol] 1.2 10*3/uL Normal 1.00-4.8 [facility] Comment on above: Performed By: #### DIMA Matthews, CBC #### [address] Lymphocytes/100 WBC (Bld) 14.4 % Normal . [facility] Comment on above: Performed By: #### DIMA Matthews, CBC #### [address] MCH (RBC) [Entitic mass] 29.8 pg Normal 27.5-35.2 [facility] Comment on above: Performed By: #### DIMA Matthews, CBC #### [address] MCV (RBC) [Entitic vol] 89.0 fL Normal 83.5-101 [facility] Comment on above: Performed By: #### DIMA Matthews, CBC #### [address] Mean Corpuscular HGB Conc 33.5 g/dL Normal 32.5-35.6 [facility] Comment on above: Performed By: #### M G, BMP, CBC #### [facility] [address] [place] [address] [place] Monocytes (Bld) [#/Vol] 0.8 10*3/uL Normal 0.0-0.8 [facility] Comment on above: Performed By: #### Aislinn Worthy BMP, CBC #### [facility] [address] [place] [id number] [place] Monocytes/100 WBC (Bld) 10.2 % Normal . [facility] Comment on above: Performed By: #### Aislinn Worthy BMP, CBC #### [facility] [address] [place] [address] [place] Neutrophils (Bld) [#/Vol] 5.8 10*3/uL Normal 1.8-7.7 [facility] Comment on above: Performed By: #### DIMA Matthews, CBC #### [facility] [address] [place] [address] [place] Neutrophils/100 WBC (Bld) 70.9 % Normal . [facility] Comment on above: Performed By: #### DIMA Matthews, CBC #### [facility] [address] [place] [address] [place] NRBC% 0.2 /100{WBC} Normal 0-0.5 [facility] Comment on above: Performed By: #### DIMA Matthews, CBC #### [facility] [address] [place] [address] [place] Platelet mean volume (Bld) [Entitic vol] 9.9 fL Normal 6.6-10.1 [facility] Comment on above: Performed By: #### DIMA Matthews, CBC #### [facility] [address] [place] [address] [place] Platelets (Bld) [#/Vol] 199 10*3/uL Normal 150-450 [facility] Comment on above: Performed By: #### DIMA Matthews, CBC #### [facility] [address] [place] [address] [place] RBC (Bld) [#/Vol] 4.21 10*6/uL Normal 3.90-5.60 [facility] Comment on above: Performed By: #### M G, BMP, CBC #### [facility] [address] WBC (Bld) [#/Vol] 8.2 10*3/uL Normal 4.1-10.5 [facility] Comment on above: Performed By: #### M G, BMP, CBC #### [facility] [address] Creatinine [Mass/volume] in UrineOrdered By: Nkechi Kc on 04-17-2023 Creatinine (U) [Mass/Vol] 70.0 mg/dL 14.0-26.0 [facility] Creatinine, Urine (Random)on 04-17-2023 Creatinine, Urine (Random) 70.0 mg/dL High 14.0-26.0 [facility] Comment on above: Performed By: #### R EDRAW NA, REDRAW MG, REDRAW K #### [address] Glucose Poct Glucometerson 0 04-17-2023 Commemt1 Glu2: Cleaned Meter Normal [facility] Comment on above: Result Comment: PERF ORMED BY: [place] [address] PATHOLOGIST [employer] MOOK BROWN M.D. Performed By: #### R EDRAW NA, REDRAW MG, REDRAW K #### [address] Glucose [Mass/Vol] 339 mg/dL Normal [facility] Comment on above: Result Comment: [place] Glucose Reference Range is dependent on time and content of last meal. Glucose of more than 200 mg/dL in a nonstressed, ambulatory subject supports the diagnosis of Diabetes Mellitus. Performed By: #### R EDRAW NA, REDRAW MG, REDRAW K #### [facility] [address] Glucose mean value [Mass/vol ume] in Blood Estimated from glycated hemoglobinOrdered By: Nkechi Kc on 04-17-2023 Average glucose Estimated from glycated hemoglobin (Bld) [Mass/Vol] 315 mg/dL [facility] Hemoglobin A1c percentageOrd ered By: Nkechi Arzatekobe on 04-17-2023 HbA1c (Bld) [Mass fraction] 12.6 % 4.3-5.6 [facility] Comment on above: Increased risk for d iabetes: 5.7 - 6.4diabetes: >6.4glycemic control for adults with diabetes: <7.0 Magnesiumon 04-17-2023 Magnesium [Mass/Vol] 2.3 mg/dL Normal 1.9-2.7 [facility] Comment on above: Result Comment: PERF ORMED BY: [place] [address] PATHOLOGIST [employer] MOOK BROWN M.D. Performed By: #### M G, BMP, CBC #### [facility] [address] [place] [address] Protein [Mass/volume] in Uri neOrdered By: Nkechi Kc on 04-17-2023 Protein (U) [Mass/Vol] 330 mg/dL 0-9 [facility] Total Protein, Urineon 04-17 Protein (U) [Mass/Vol] 330 mg/dL High 0-9 [facility] Comment on above: Result Comment: PERF ORMED BY: [place] [address] PATHOLOGIST [employer] MOOK BROWN M.D. Performed By: #### R EDRAW NA, REDRAW MG, REDRAW K #### [facility] [address] [place] [address] Automated epithelial cells c ount in urine sediment (number/area)Ordered By: Kameron Dos Santos on 04-16-2023 Epithelial cells Auto (Urine sed) [#/Area] None seen [HPF] 0-2 [facility] Automated erythrocytes count in urine sediment (number/area)Ordered By: Kameron Dos Santos on 04-16-2023 RBC Auto (Urine sed) [#/Area] None seen [HPF] 0-4 [facility] Automated leukocytes count i n urine sediment (number/area)Ordered By: Kameron Raya on 04-16-2023 WBC Auto (Urine sed) [#/Area] None seen [HPF] 0-4 [facility] Automated urine hyaline cast s count (number/volume)Ordered By: Kameron Dos Santos on 04-16-2023 Hyaline casts Auto (U) [#/Vol] None seen [LPF] 0-1 [facility] Basic Metabolic Panelon Anion gap [Moles/Vol] 12.7 mmol/L Normal 6.0-15.0 [facility] Comment on above: Performed By: #### R EDRAW NA, REDRAW MG, REDRAW K #### [facility] [address] Calcium [Mass/Vol] 8.8 mg/dL Normal 8.6-10.3 [facility] Comment on above: Performed By: #### R EDRAW NA, REDRAW MG, REDRAW K #### [facility] [address] Chloride [Moles/Vol] 100 mmol/L Normal 98-107 [facility] Comment on above: Performed By: #### R EDRAW NA, REDRAW MG, REDRAW K #### [facility] [address] CO2 [Moles/Vol] 28.1 mmol/L Normal 21.0-31.0 [facility] Comment on above: Performed By: #### R EDRAW NA, REDRAW MG, REDRAW K #### [facility] [address] [place] [address] [place] Creatinine [Mass/Vol] 2.80 mg/dL High 0.70-1.30 [facility] Comment on above: Performed By: #### R EDRAW NA, REDRAW MG, REDRAW K #### [facility] [address] [place] [address] [place] Creatinine Clr Calc Pharmacy 35.07 Normal [facility] Comment on above: Result Comment: PERF ORMED BY: [place] [address] PATHOLOGIST [employer] MOOK BROWN M.D. Performed By: #### R EDRAW NA, REDRAW MG, REDRAW K #### [place] [address] [place] GFR/1.73 sq M.predicted MDRD (S/P/Bld) [Vol rate/Area] 26.487 mL/min/{1.73_m2} Normal [facility] Comment on above: Performed By: #### R EDRAW NA, REDRAW MG, REDRAW K #### [address] Glucose [Mass/Vol] 161 mg/dL High 70-100 [facility] Comment on above: Result Comment: [facility] Glucose Reference Range is dependent on time and content of last meal. Glucose of more than 200 mg/dL in a nonstressed, ambulatory subject supports the diagnosis of Diabetes Mellitus. ADA recommended reference range Performed By: #### R EDRAW NA, REDRAW MG, REDRAW K #### [facility] [address] [place] [address] Potassium [Moles/Vol] 3.8 mmol/L Normal 3.5-5.1 [facility] Comment on above: Performed By: #### R EDRAW NA, REDRAW MG, REDRAW K #### [facility] [address] [place] [address] [place] Sodium [Moles/Vol] 137 mmol/L Normal 136-145 [facility] Comment on above: Performed By: #### R EDRAW NA, REDRAW MG, REDRAW K #### [facility] [address] [place] [address] [place] Urea nitrogen [Mass/Vol] 54 mg/dL High 7-25 [facility] Comment on above: Performed By: #### R EDRAW NA, REDRAW MG, REDRAW K #### [place] [address] [place] Anion gap [Moles/Vol] 12.5 mmol/L Normal 6.0-15.0 [facility] Comment on above: Performed By: #### R EDRAW NA, REDRAW MG, REDRAW K #### [facility] [address] [place] [address] Calcium [Mass/Vol] 8.2 mg/dL Low 8.6-10.3 [facility] Comment on above: Performed By: #### R EDRAW NA, REDRAW MG, REDRAW K #### [facility] [address] [place] [address] Chloride [Moles/Vol] 98 mmol/L Normal 98-107 [facility] Comment on above: Performed By: #### R EDRAW NA, REDRAW MG, REDRAW K #### [facility] [address] [place] [address] CO2 [Moles/Vol] 31.8 mmol/L High 21.0-31.0 [facility] Comment on above: Performed By: #### R EDRAW NA, REDRAW MG, REDRAW K #### [facility] [address] [place] [address] Creatinine [Mass/Vol] 3.23 mg/dL High 0.70-1.30 [facility] Comment on above: Performed By: #### R EDRAW NA, REDRAW MG, REDRAW K #### [facility] [address] [place] [address] [place] Creatinine Clr Calc Pharmacy 30.52 [facility] Comment on above: Performed By: #### R EDRAW NA, REDRAW MG, REDRAW K #### [facility] [address] [place] [address] [place] GFR/1.73 sq M.predicted MDRD (S/P/Bld) [Vol rate/Area] 22.315 mL/min/{1.73_m2} [facility] Comment on above: Performed By: #### R EDRAW NA, REDRAW MG, REDRAW K #### [facility] [address] Glucose [Mass/Vol] 133 mg/dL High 70-100 [facility] Comment on above: Result Comment: [place] Glucose Reference Range is dependent on time and content of last meal. Glucose of more than 200 mg/dL in a nonstressed, ambulatory subject supports the diagnosis of Diabetes Mellitus. ADA recommended reference range Performed By: #### R EDRAW NA, REDRAW MG, REDRAW K #### [facility] [address] Potassium [Moles/Vol] 3.3 mmol/L Low 3.5-5.1 [facility] Comment on above: Performed By: #### R EDRAW NA, REDRAW MG, REDRAW K #### [address] Sodium [Moles/Vol] 139 mmol/L Normal 136-145 [facility] Comment on above: Performed By: #### R EDRAW NA, REDRAW MG, REDRAW K #### [facility] [address] [place] [address] Urea nitrogen [Mass/Vol] 56 mg/dL High 7-25 [facility] Comment on above: Performed By: #### R EDRAW NA, REDRAW MG, REDRAW K #### [address] Bilirubin Test strip Ql (U)O rdered By: Kameron Dos Santos on 04-16-2023 Bilirubin Ql (U) Negative Negative [facility] CT abdomen pelvis wo conon 0 04-16-2023 CT abdomen pelvis wo con [facility] [place] [address] [place] [address] CT Scan Report Signed Patient: Chandler Minor MR#: [id number] 20 : 1970 Acct:[id number] Age/Sex: 52 / M ADM Date: 04/15/23 Loc: Room: [address] [place] [address] Type: ADM IN Attending Dr: Kameron Dos [...] Jesu Reese M.D.04/16/2023 6:22 PM Dictation Location: [place] [address] Transcribed By: [facility] 04/16/231821 Dictated By: Jesu Reese DO 04/16/231817 Signed By: 04/16/231821 Normal [facility] Color Auto (U)Ordered By: Rona Dos Santos on 04-16-2023 Color (U) Yellow Yellow [facility] Complete Blood Count Auto Di ffon 04-16-2023 Basophils (Bld) [#/Vol] 0.0 10*3/uL Normal 0.0-0.2 [facility] Comment on above: Result Comment: PERF ORMED BY: [facility] [address] [place] [address] PATHOLOGIST [employer] MOOK BROWN M.D. Performed By: #### R EDRAW NA, REDRAW MG, REDRAW K #### [facility] [address] [place] [address] Basophils/100 WBC (Bld) 0.5 % Normal . [facility] Comment on above: Performed By: #### R EDRAW NA, REDRAW MG, REDRAW K #### [facility] [address] [place] [address] Eosinophils (Bld) [#/Vol] 0.3 10*3/uL Normal 0.0-0.45 [facility] Comment on above: Performed By: #### R EDRAW NA, REDRAW MG, REDRAW K #### [facility] [address] [place] [address] Eosinophils/100 WBC (Bld) 3.7 % Normal . [facility] Comment on above: Performed By: #### R EDRAW NA, REDRAW MG, REDRAW K #### [address] Erythrocyte distribution width (RBC) [Ratio] 16.3 % High 12.0-14.8 [facility] Comment on above: Performed By: #### R EDRAW NA, REDRAW MG, REDRAW K #### [address] Hematocrit (Bld) [Volume fraction] 38.1 % Low 38.8-50.0 [facility] Comment on above: Performed By: #### R EDRAW NA, REDRAW MG, REDRAW K #### [address] Hemoglobin (Bld) [Mass/Vol] 12.6 g/dL Low 13.0-17.0 [facility] Comment on above: Performed By: #### R EDRAW NA, REDRAW MG, REDRAW K #### [address] Lymphocytes (Bld) [#/Vol] 1.4 10*3/uL Normal 1.00-4.8 [facility] Comment on above: Performed By: #### R EDRAW NA, REDRAW MG, REDRAW K #### [facility] [address] [place] [address] Lymphocytes/100 WBC (Bld) 17.7 % Normal . [facility] Comment on above: Performed By: #### R EDRAW NA, REDRAW MG, REDRAW K #### [facility] [address] [place] [address] MCH (RBC) [Entitic mass] 29.7 pg Normal 27.5-35.2 [facility] Comment on above: Performed By: #### R EDRAW NA, REDRAW MG, REDRAW K #### [facility] [address] [place] [address] MCV (RBC) [Entitic vol] 90.3 fL Normal 83.5-101 [facility] Comment on above: Performed By: #### R EDRAW NA, REDRAW MG, REDRAW K #### [facility] [address] [place] [address] Mean Corpuscular HGB Conc 32.9 g/dL Normal 32.5-35.6 [facility] Comment on above: Performed By: #### R EDRAW NA, REDRAW MG, REDRAW K #### [address] Monocytes (Bld) [#/Vol] 0.7 10*3/uL Normal 0.0-0.8 [facility] Comment on above: Performed By: #### R EDRAW NA, REDRAW MG, REDRAW K #### [address] Monocytes/100 WBC (Bld) 8.8 % Normal . [facility] Comment on above: Performed By: #### R EDRAW NA, REDRAW MG, REDRAW K #### [address] Neutrophils (Bld) [#/Vol] 5.4 10*3/uL Normal 1.8-7.7 [facility] Comment on above: Performed By: #### R EDRAW NA, REDRAW MG, REDRAW K #### [facility] [address] [place] [address] Neutrophils/100 WBC (Bld) 69.3 % Normal . [facility] Comment on above: Performed By: #### R EDRAW NA, REDRAW MG, REDRAW K #### [facility] [address] [place] [address] NRBC% 0.1 /100{WBC} Normal 0-0.5 [facility] Comment on above: Performed By: #### R EDRAW NA, REDRAW MG, REDRAW K #### [address] Platelet mean volume (Bld) [Entitic vol] 9.5 fL Normal 6.6-10.1 [facility] Comment on above: Performed By: #### R EDRAW NA, REDRAW MG, REDRAW K #### [address] Platelets (Bld) [#/Vol] 187 10*3/uL Normal 150-450 [facility] Comment on above: Performed By: #### R EDRAW NA, REDRAW MG, REDRAW K #### [address] RBC (Bld) [#/Vol] 4.22 10*6/uL Normal 3.90-5.60 [facility] Comment on above: Performed By: #### R EDRAW NA, REDRAW MG, REDRAW K #### [facility] [address] [place] [address] WBC (Bld) [#/Vol] 7.8 10*3/uL Normal 4.1-10.5 [facility] Comment on above: Performed By: #### R EDRAW NA, REDRAW MG, REDRAW K #### [facility] [address] [place] [address] Creatinine, Urine (Random)on 04-16-2023 Creatinine, Urine (Random) 57.0 mg/dL High 14.0-26.0 [facility] Comment on above: Result Comment: PERF ORMED BY: [place] [address] PATHOLOGIST [employer] MOOK BROWN M.D. Performed By: #### R EDRAW NA, REDRAW MG, REDRAW K #### [facility] [address] [place] [address] [place] Dipstick and Microscopicon 0 04-16-2023 Appearance (U) Clear Normal Clear [facility] Comment on above: Order Comment: Name Collection Type:: Clean-Voided Midstream Performed By: #### R EDRAW NA, REDRAW MG, REDRAW K #### [facility] [address] [place] [address] Bacteria,Urine None Seen Normal None Seen [facility] Comment on above: Order Comment: Name Collection Type:: Clean-Voided Midstream Performed By: #### R EDRAW NA, REDRAW MG, REDRAW K #### [facility] [address] [place] [address] [place] Bilirubin,Urine Negative Normal Negative [facility] Comment on above: Order Comment: Name Collection Type:: Clean-Voided Midstream Performed By: #### R EDRAW NA, REDRAW MG, REDRAW K #### [facility] [address] [place] [address] Color (U) Yellow Normal Yellow [facility] Comment on above: Order Comment: Name Collection Type:: Clean-Voided Midstream Performed By: #### R EDRAW NA, REDRAW MG, REDRAW K #### [facility] [address] [place] [address] [place] Glucose Ql (U) >=1000 High Normal [facility] Comment on above: Order Comment: Name Collection Type:: Clean-Voided Midstream Performed By: #### R EDRAW NA, REDRAW MG, REDRAW K #### [facility] [address] [place] [address] [place] Hyaline Casts,Urine None Seen Normal 0-1 [facility] Comment on above: Order Comment: Name Collection Type:: Clean-Voided Midstream Result Comment: PERF ORMED BY: [place] [address] PATHOLOGIST [employer]ER MOOK BROWN M.D. Performed By: #### R EDRAW NA, REDRAW MG, REDRAW K #### [facility] [address] [place] [address] [place] Ketones Ql (U) Negative Normal Negative [facility] Comment on above: Order Comment: Name Collection Type:: Clean-Voided Midstream Performed By: #### R EDRAW NA, REDRAW MG, REDRAW K #### [facility] [address] [place] [address] Leukocyte esterase Test strip Ql (U) Negative Normal Negative [facility] Comment on above: Order Comment: Name Collection Type:: Clean-Voided Midstream Performed By: #### R EDRAW NA, REDRAW MG, REDRAW K #### [facility] [address] [place] [address] [place] Nitrite,Urine Negative Normal Negative [facility] Comment on above: Order Comment: Name Collection Type:: Clean-Voided Midstream Performed By: #### R EDRAW NA, REDRAW MG, REDRAW K #### [facility] [address] [place] [address] [place] Occult Blood,Urine Negative Normal Negative [facility] Comment on above: Order Comment: Name Collection Type:: Clean-Voided Midstream Result Comment: PERF ORMED BY: [place] [address] PATHOLOGIST [employer]ER MOOK BROWN M.D. Performed By: #### R EDRAW NA, REDRAW MG, REDRAW K #### [facility] [address] [place], [place] [id number] [place] pH (U) 6.5 [pH] Normal 5.0-9.0 [facility] Comment on above: Order Comment: Name Collection Type:: Clean-Voided Midstream Performed By: #### R EDRAW NA, REDRAW MG, REDRAW K #### [facility] [address] [place] [address] Protein (U) [Mass/Vol] 300 mg/dL High Negative [facility] Comment on above: Order Comment: Name Collection Type:: Clean-Voided Midstream Performed By: #### R EDRAW NA, REDRAW MG, REDRAW K #### [facility] [address] [place] [address] RBC,Urine None Seen Normal 0-4 [facility] Comment on above: Order Comment: Name Collection Type:: Clean-Voided Midstream Performed By: #### R EDRAW NA, REDRAW MG, REDRAW K #### [facility] [address] [place] [address] Specificy [place],Urine 1.017 Normal 1.00 1-1.03 0 [facility] Comment on above: Order Comment: Name Collection Type:: Clean-Voided Midstream Performed By: #### R EDRAW NA, REDRAW MG, REDRAW K #### [facility] [address] [place] [address] Squamous Epithelial Cell,Urine None Seen Normal 0-2 [facility] Comment on above: Order Comment: Name Collection Type:: Clean-Voided Midstream Performed By: #### R EDRAW NA, REDRAW MG, REDRAW K #### [facility] [address] [place] [address] Urobilinogen,Urine Normal Normal Normal [facility] Comment on above: Order Comment: Name Collection Type:: Clean-Voided Midstream Performed By: #### R EDRAW NA, REDRAW MG, REDRAW K #### [facility] [address] [place] [address] WBC,Urine None Seen Normal 0-4 [facility] Comment on above: Order Comment: Name Collection Type:: Clean-Voided Midstream Performed By: #### R EDRAW NA, REDRAW MG, REDRAW K #### [place] [id number] [place] Glucose Poct Glucometerson 0 04-16-2023 Commemt1 Glu2: Cleaned Meter Normal [facility] Comment on above: Result Comment: PERF ORMED BY: [place] [address] PATHOLOGIST [employer] MOOK BROWN M.D. Performed By: #### R MONISHA AMAYA REDRAW MG REDRAW K #### [place] [id number] [place] Glucose [Mass/Vol] 193 mg/dL Normal [facility] Comment on above: Result Comment: [facility] Glucose Reference Range is dependent on time and content of last meal. Glucose of more than 200 mg/dL in a nonstressed, ambulatory subject supports the diagnosis of Diabetes Mellitus. Performed By: #### R MONISHA AMAYA, REDLAVELL MG REDRAW K #### [address] Ketones Auto test strip (U) [Mass/Vol]Ordered By: Kameron Dos Santos on 04-16-2023 Ketones (U) [Mass/Vol] Negative Negative [facility] Magnesiumon 04-16-2023 Magnesium [Mass/Vol] 2.3 mg/dL Normal 1.9-2.7 [facility] Comment on above: Result Comment: PERF ORMED BY: [place] [address] PATHOLOGIST [employer] MOOK BROWN M.D. Performed By: #### R MONISHA AMAYA, REDRAW MG, REDRAW K #### [facility] [address] [place], [place] [id number] [place] Nitrite Test strip Ql (U)Ord ered By: Kameron Dos Santos on 04-16-2023 Nitrite Ql (U) Negative Negative [facility] Protein Auto test strip (U) [Mass/Vol]Ordered By: Kameron Dos Santos on 04-16-2023 Protein (U) [Mass/Vol] 300 mg/dL Negative [facility] Sodium [Moles/volume] in Uri neOrdered By: Kameron Dos Santos on 04-16-2023 Sodium (U) [Moles/Vol] 67.0 mmol/L [facility] Comment on above: No reference range e stablished Sodium, Urineon 04-16-2023 Sodium (U) [Moles/Vol] 67.0 mmol/L Normal [facility] Comment on above: Result Comment: No r eference range established Performed By: #### R EDRAW NA, REDRAW MG, REDRAW K #### [address] Specific gravity Auto test s trip (U) [Rel density]Ordered By: Kameron Dos Santos on 04-16-2023 Specific gravity (U) [Rel density] 1.017 1.001-1.03 0 [facility] Urine bacteria detection by automated methodOrdered By: Kameron Dos Santos on 04-16-2023 Bacteria Auto Ql (U) None seen None Seen [facility] Urine clarity by refractomet ry automatedOrdered By: Kameron Dos Santos on 04-16-2023 Clarity Refractometry automated (U) Clear Clear [facility] Urine glucose measurement by automated test strip (mass/volume)Ordered By: Kameron Dos Santos on 04-16-2023 Glucose Auto test strip (U) [Mass/Vol] >=1000 mg/dL Normal [facility] Urine hemoglobin detection b y automated test stripOrdered By: Kameron Dos Santos on 04-16-2023 Hemoglobin Auto test strip Ql (U) Negative Negative [facility] Urine leukocyte esterase det ection by automated test stripOrdered By: Kameron Dos Santos on 04-16-2023 Leukocyte esterase Auto test strip Ql (U) Negative Negative [facility] Urobilinogen Auto test strip (U) [Mass/Vol]Ordered By: Kameron Dos Santos on 04-16-2023 Urobilinogen (U) [Mass/Vol] Normal mg/dL Normal [facility] pH Auto test strip (U)Ordere d By: Kameron Dos Santos on 04-16-2023 pH (U) 6.5 [pH] 5.0-9.0 [facility] OSMOLALITY URINEon 05-29-202 3 Osmolality, Urine 330 mOsmol/kg Normal [facility] Comment on above: Result Comment: 24 h r : 300 - 900 Random: 50 - 1400 After 12hr fluid restriction: >850 Performed By: #### P OCGLUC #### [facility] [address] [place] [address] Dr. Spring Nash BNPon 03-09-2023 Natriuretic peptide B (Bld) [Mass/Vol] 1950.0 pg/mL Critically high <=900.0 [facility] Comment on above: Performed By: #### B MP #### [facility] [address] [place] [address] Dr. Spring Nash CBC AUTO DIFFon 03-09-2023 BASO # 0.0 103/ul Normal 0.0-0.1 [facility] Comment on above: Performed By: #### C MP, HSTROPN, BNP #### [facility] [address] [place] [address] Dr. Spring Nash Basophils/100 WBC (Bld) 0.3 % Normal 0.2-2.0 [facility] Comment on above: Performed By: #### C MP, HSTROPN, BNP #### [facility] [address] [place] [address] Dr. Spring Nash EO # 0.3 103/ul Normal 0.0-0.7 [facility] Comment on above: Performed By: #### C MP, HSTROPN, BNP #### [facility] [address] [place] [address] Dr. Spring Nash Eosinophils/100 WBC (Bld) 5.9 % Normal 0.9-7.0 [facility] Comment on above: Performed By: #### C MP, HSTROPN, BNP #### [facility] [address] [place] [address] Dr. Spring Nash Erythrocyte distribution width (RBC) [Ratio] 15.6 % Critically high 11.0-15.0 [facility] Comment on above: Performed By: #### C MP, HSTROPN, BNP #### [facility] [address] [place] [address] [address] Spring Nash Hematocrit (Bld) [Volume fraction] 31.4 % Critically low 42.0-54.0 [facility] Comment on above: Performed By: #### C MP, HSTROPN, BNP #### [facility] [address] [place] [address] Dr. Spring Nash Hemoglobin (Bld) [Mass/Vol] 10.0 g/dL Critically low 14.0-18.0 [facility] Comment on above: Performed By: #### C MP, HSTROPN, BNP #### [facility] [address] [place] [address] Dr. Spring Nash IG # 0.02 10e3/ul Normal 0.00-0.03 [facility] Comment on above: Performed By: #### C MP, HSTROPN, BNP #### [facility] [address] [place] [address] Dr. Spring Nash IG % 0.3 % Normal 0.0-0.5 [facility] Comment on above: Performed By: #### C MP, HSTROPN, BNP #### [facility] [address] [place] [address] Dr. Spring Nash LYMPH # 1.0 103/ul Critically low 1.2-3.8 [facility] Comment on above: Performed By: #### C MP, HSTROPN, BNP #### [facility] [address] [place] [address] Dr. Spring Nash Lymphocytes/100 WBC (Bld) 17.6 % Critically low 20.5-60.0 [facility] Comment on above: Performed By: #### C MP, HSTROPN, BNP #### [facility] [address] [place] [address] Dr. Spring Nash MANUAL DIFF REQ NO Normal [facility] Comment on above: Performed By: #### C MP, HSTROPN, BNP #### [facility] [address] [place] [address] Dr. Spring Nash MCH (RBC) [Entitic mass] 29.3 pg Normal 25.9-34.0 [facility] Comment on above: Performed By: #### C MP, HSTROPN, BNP #### [facility] [address] [place] [address] Dr. Spring Nash MCHC (RBC) [Mass/Vol] 31.8 g/dL Normal 29.9-35.2 [facility] Comment on above: Performed By: #### C MP, HSTROPN, BNP #### [facility] [address] [place] [address] Dr. Spring Nash MCV (RBC) [Entitic vol] 92.1 fL Normal 80.0-94.0 [facility] Comment on above: Performed By: #### C MP, HSTROPN, BNP #### [facility] [address] [place] [address] Dr. Spring Nash MONO # 0.6 103/ul Normal 0.3-0.8 [facility] Comment on above: Performed By: #### C MP, HSTROPN, BNP #### [facility] [address] [place] [address] Dr. Spring Nash Monocytes/100 WBC (Bld) 9.9 % Normal 1.7-12.0 [facility] Comment on above: Performed By: #### C MP, HSTROPN, BNP #### [facility] [address] [place] [address] Dr. Spring Nash NEUT # 3.8 103/ul Normal 1.4-6.5 [facility] Comment on above: Performed By: #### C MP, HSTROPN, BNP #### [facility] [address] [place] [address] Dr. Spring Nash Neutrophils/100 WBC (Bld) 66.0 % Normal 43.0-75.0 [facility] Comment on above: Performed By: #### C MP, HSTROPN, BNP #### [facility] [address] [place] [address] Dr. Spring Nash Platelet mean volume (Bld) [Entitic vol] 11.6 fL Normal 9.5-13.5 [facility] Comment on above: Performed By: #### C MP, HSTROPN, BNP #### [facility] [address] [address] [address] Spring Nash PLT 213 103/ul Normal 150-450 [facility] Comment on above: Performed By: #### C MP, HSTROPN, BNP #### [facility] [address] [address] [address] Spring Nash RBC 3.41 106/ul Critically low 4.70-6.10 [facility] Comment on above: Performed By: #### C MP, HSTROPN, BNP #### [facility] [address] [place] [address] Dr. Spring Nash WBC 5.7 103/ul Normal 4.0-11.0 [facility] Comment on above: Performed By: #### C MP, HSTROPN, BNP #### [facility] [address] [place] [address] Dr. Spring Nash POINT OF CARE GLUCOSEon 02-12 Glucose [Mass/Vol] 233 mg/dL Critically high 74-106 [facility] Comment on above: Performed By: #### B MP #### [facility] [address] [place] [address] Dr. Spring Nash Glucose [Mass/Vol] 129 mg/dL Critically high 74-106 [facility] Comment on above: Performed By: #### C MP, HSTROPN, BNP #### [facility] [address] [place] [address] Dr. Spring Nash PROF 14(COMP METB)on 023 Albumin [Mass/Vol] 2.5 g/dL Critically low 3.4-5.0 [facility] Comment on above: Performed By: #### B MP #### [facility] [address] [place] [address] Dr. Spring Nash Albumin/Globulin [Mass ratio] 0.8 {ratio} Normal [facility] Comment on above: Performed By: #### B MP #### [facility] [address] [address] [address] Spring Nash ALP [Catalytic activity/Vol] 105 U/L Normal 46-116 [facility] Comment on above: Performed By: #### B MP #### [facility] [address] [place] [address] Dr. Spring Nash ALT [Catalytic activity/Vol] 18 U/L Normal 16-63 [facility] Comment on above: Performed By: #### B MP #### [facility] [address] [place] [address] Dr. Spring Nash Anion gap [Moles/Vol] 10.3 mmol/L Normal [facility] Comment on above: Performed By: #### B MP #### [facility] [address] [place] [address] Dr. Spring Nash AST [Catalytic activity/Vol] 14 U/L Critically low 15-37 [facility] Comment on above: Performed By: #### B MP #### [facility] [address] [place] [address] Dr. Spring Nash Bilirubin [Mass/Vol] 0.3 mg/dL Normal 0.2-1.0 [facility] Comment on above: Performed By: #### B MP #### [facility] [address] [place] [address] Dr. Spring Nash Calcium [Mass/Vol] 8.4 mg/dL Critically low 8.5-10.1 [facility] Comment on above: Performed By: #### B MP #### [facility] [address] [place] [address] Dr. Spring Nash Chloride [Moles/Vol] 106 mmol/L Normal 98-107 [facility] Comment on above: Performed By: #### B MP #### [facility] [address] [place] [address] Dr. Spring Nash CO2 [Moles/Vol] 30.2 mmol/L Normal 21.0-32.0 [facility] Comment on above: Performed By: #### B MP #### [facility] [address] [place] [address] Dr. Spring Nash Creatinine [Mass/Vol] 2.95 mg/dL Critically high 0.70-1.30 [facility] Comment on above: Performed By: #### B MP #### [facility] [address] [address] [address] Spring Nash EGFR-AF BARBADIAN 27 mL/min/1.73m2 Critically low >=60 [facility] Comment on above: Performed By: #### B MP #### [facility] [address] [address] [address] Spring Nash EGFR-NON AF BARBADIAN 23 mL/min/1.73m2 Critically low >=60 [facility] Comment on above: Performed By: #### B MP #### [facility] [address] [address] [address] Spring Nash Globulin (S) [Mass/Vol] 3.2 g/dL Normal [facility] Comment on above: Performed By: #### B MP #### [facility] [address] [address] [address] Spring Nash Glucose [Mass/Vol] 153 mg/dL Critically high 74-106 [facility] Comment on above: Performed By: #### B MP #### [facility] [address] [address] [address] Spring Nash Potassium [Moles/Vol] 4.5 mmol/L Normal 3.5-5.1 [facility] Comment on above: Performed By: #### B MP #### [facility] [address] [address] [address] Spring Nash Protein [Mass/Vol] 5.7 g/dL Critically low 6.4-8.2 [facility] Comment on above: Performed By: #### B MP #### [facility] [address] [address] [address] Spring Nash Sodium [Moles/Vol] 142 mmol/L Normal 136-145 [facility] Comment on above: Performed By: #### B MP #### [facility] [address] [address] [address] Spring Nash Urea nitrogen [Mass/Vol] 50.0 mg/dL Critically high 7.0-18.0 [facility] Comment on above: Performed By: #### B MP #### [facility] [address] [place] [address] Dr. Spring Nash Urea nitrogen/Creatinine [Mass ratio] 16.9 mg/mg Normal [facility] Comment on above: Performed By: #### B MP #### [facility] [address] [place] [address] Dr. Spring Nash BNPon 03-08-2023 Natriuretic peptide B (Bld) [Mass/Vol] 2675.0 pg/mL Critically high <=900.0 [facility] Comment on above: Performed By: #### P OCGLUC #### [facility] [address] [place] [address] Dr. Spring Nash CBC AUTO DIFFon 03-08-2023 BASO # 0.0 103/ul Normal 0.0-0.1 [facility] Comment on above: Performed By: #### C MP, HSTROPN, BNP #### [facility] [address] [place] [address] Dr. Spring Nash Basophils/100 WBC (Bld) 0.5 % Normal 0.2-2.0 [facility] Comment on above: Performed By: #### C MP, HSTROPN, BNP #### [facility] [address] [place] [address] Dr. Spring Nash EO # 0.4 103/ul Normal 0.0-0.7 [facility] Comment on above: Performed By: #### C MP, HSTROPN, BNP #### [facility] [address] [place] [address] Dr. Spring Nsah Eosinophils/100 WBC (Bld) 5.3 % Normal 0.9-7.0 [facility] Comment on above: Performed By: #### C MP, HSTROPN, BNP #### [facility] [address] [place] [address] Dr. Spring Nash Erythrocyte distribution width (RBC) [Ratio] 15.5 % Critically high 11.0-15.0 [facility] Comment on above: Performed By: #### C MP, HSTROPN, BNP #### [facility] [address] [place] [address] Dr. Spring Nash Hematocrit (Bld) [Volume fraction] 30.5 % Critically low 42.0-54.0 [facility] Comment on above: Performed By: #### C MP, HSTROPN, BNP #### [facility] [address] [place] [address] Dr. Spring Nash Hemoglobin (Bld) [Mass/Vol] 9.7 g/dL Critically low 14.0-18.0 [facility] Comment on above: Performed By: #### C MP, HSTROPN, BNP #### [facility] [address] [place] [address] Dr. Spring Nash IG # 0.03 10e3/ul Normal 0.00-0.03 [facility] Comment on above: Performed By: #### C MP, HSTROPN, BNP #### [facility] [address] [place] [address] Dr. Spring Nash IG % 0.5 % Normal 0.0-0.5 [facility] Comment on above: Performed By: #### C MP, HSTROPN, BNP #### [facility] [address] [place] [address] Dr. Spring Nash LYMPH # 1.0 103/ul Critically low 1.2-3.8 [facility] Comment on above: Performed By: #### C MP, HSTROPN, BNP #### [facility] [address] [place] [address] Dr. Spring Nash Lymphocytes/100 WBC (Bld) 14.9 % Critically low 20.5-60.0 [facility] Comment on above: Performed By: #### C MP, HSTROPN, BNP #### [facility] [address] [place] [address] Dr. Spring Nash MANUAL DIFF REQ NO Normal [facility] Comment on above: Performed By: #### C MP, HSTROPN, BNP #### [facility] [address] [place] [address] Dr. Spring Nash MCH (RBC) [Entitic mass] 29.6 pg Normal 25.9-34.0 [facility] Comment on above: Performed By: #### C MP, HSTROPN, BNP #### [facility] [address] [place] [address] Dr. Spring Nash MCHC (RBC) [Mass/Vol] 31.8 g/dL Normal 29.9-35.2 [facility] Comment on above: Performed By: #### C MP, HSTROPN, BNP #### [facility] [address] [place] [address] Dr. Spring Nash MCV (RBC) [Entitic vol] 93.0 fL Normal 80.0-94.0 [facility] Comment on above: Performed By: #### C MP, HSTROPN, BNP #### [facility] [address] [place] [address] Dr. Spring Nash MONO # 0.5 103/ul Normal 0.3-0.8 [facility] Comment on above: Performed By: #### C MP, HSTROPN, BNP #### [facility] [address] [place] [address] Dr. Spring Nash Monocytes/100 WBC (Bld) 7.9 % Normal 1.7-12.0 [facility] Comment on above: Performed By: #### C MP, HSTROPN, BNP #### [facility] [address] [place] [address] Dr. Spring Nash NEUT # 4.7 103/ul Normal 1.4-6.5 [facility] Comment on above: Performed By: #### C MP, HSTROPN, BNP #### [facility] [address] [place] [address] Dr. Spring Nash Neutrophils/100 WBC (Bld) 70.9 % Normal 43.0-75.0 [facility] Comment on above: Performed By: #### C MP, HSTROPN, BNP #### [facility] [address] [address] [address] Spring Nash Platelet mean volume (Bld) [Entitic vol] 11.7 fL Normal 9.5-13.5 [facility] Comment on above: Performed By: #### C MEHREEN HSTROPN, BNP #### [facility] [address] [address] [address] Spring Nash PLT 204 103/ul Normal 150-450 [facility] Comment on above: Performed By: #### C MEHREEN, HSTROPN, BNP #### [facility] [address] [place] [address] Dr. Spring Nash RBC 3.28 106/ul Critically low 4.70-6.10 [facility] Comment on above: Performed By: #### C MEHREEN HSTROPN, BNP #### [facility] [address] [place] [address] Dr. Spring Nash WBC 6.6 103/ul Normal 4.0-11.0 [facility] Comment on above: Performed By: #### C MEHREEN, HSTROPN, BNP #### [facility] [address] [place] [address] Dr. Spring Nash POINT OF CARE GLUCOSEon 02-12 Glucose [Mass/Vol] 273 mg/dL Critically high [address] [place] [address] Comment on above: Performed By: #### P OCGLUC #### [facility] [address] [place] [address] Dr. Spring Nash Glucose [Mass/Vol] 194 mg/dL Critically high [address] [place] [address] Comment on above: Performed By: #### B MP #### [facility] [address] [place] [address] Dr. Spring Nash Glucose [Mass/Vol] 226 mg/dL Critically high [facility]106 [facility] Comment on above: Performed By: #### P OCGLUC #### [facility] [address] [place] [address] Dr. Spring Nash PROF 14(COMP METB)on 023 Albumin [Mass/Vol] 2.5 g/dL Critically low 3.4-5.0 [facility] Comment on above: Performed By: #### P OCGLUC #### [facility] [address] [address] [address] Spring Nash Albumin/Globulin [Mass ratio] 0.8 {ratio} Normal [facility] Comment on above: Performed By: #### P OCGLUC #### [facility] [address] [address] [address] Spring Nash ALP [Catalytic activity/Vol] 114 U/L Normal 46-116 [facility] Comment on above: Performed By: #### P OCGLUC #### [facility] [address] [address] [address] Spring Nash ALT [Catalytic activity/Vol] 15 U/L Critically low 16-63 [facility] Comment on above: Performed By: #### P OCGLUC #### [facility] [address] [address] [address] Spring Nash Anion gap [Moles/Vol] 12.2 mmol/L Normal [facility] Comment on above: Performed By: #### P OCGLUC #### [facility] [address] [address] [address] Spring Nash AST [Catalytic activity/Vol] 14 U/L Critically low 15-37 [facility] Comment on above: Performed By: #### P OCGLUC #### [facility] [address] [address] [address] Spring Nahs Bilirubin [Mass/Vol] 0.3 mg/dL Normal 0.2-1.0 [facility] Comment on above: Performed By: #### P OCGLUC #### [facility] [address] [address] [address] Spring Nash Calcium [Mass/Vol] 8.4 mg/dL Critically low 8.5-10.1 [facility] Comment on above: Performed By: #### P OCGLUC #### [facility] [address] [address] [address] pSring Nash Chloride [Moles/Vol] 106 mmol/L Normal 98-107 [facility] Comment on above: Performed By: #### P OCGLUC #### [facility] [address] [address] [address] Spring Nash CO2 [Moles/Vol] 27.3 mmol/L Normal 21.0-32.0 [facility] Comment on above: Performed By: #### P OCGLUC #### [facility] [address] [address] [address] Spring Nash Creatinine [Mass/Vol] 3.20 mg/dL Critically high 0.70-1.30 [facility] Comment on above: Performed By: #### P OCGLUC #### [facility] [address] [address] [address] Spring Nash EGFR-AF BARBADIAN 25 mL/min/1.73m2 Critically low >=60 [facility] Comment on above: Performed By: #### P OCGLUC #### [facility] [address] [address] [address] Spring Nash EGFR-NON AF BARBADIAN 21 mL/min/1.73m2 Critically low >=60 [facility] Comment on above: Performed By: #### P OCGLUC #### [facility] [address] [address] [address] Spring Nash Globulin (S) [Mass/Vol] 3.1 g/dL Normal [facility] Comment on above: Performed By: #### P OCGLUC #### [facility] [address] [address] [address] Spring Nash Glucose [Mass/Vol] 207 mg/dL Critically high 74-106 [facility] Comment on above: Performed By: #### P OCGLUC #### [facility] [address] [address] [address] Spring Nash Potassium [Moles/Vol] 4.5 mmol/L Normal 3.5-5.1 [facility] Comment on above: Performed By: #### P OCGLUC #### [facility] [address] [address] [address] Spring Nash Protein [Mass/Vol] 5.6 g/dL Critically low 6.4-8.2 [facility] Comment on above: Performed By: #### P OCGLUC #### [facility] [address] [address] [address] Spring Nash Sodium [Moles/Vol] 141 mmol/L Normal 136-145 [facility] Comment on above: Performed By: #### P OCGLUC #### [facility] [address] [place] [address] Dr. Spring Nash Urea nitrogen [Mass/Vol] 52.0 mg/dL Critically high 7.0-18.0 [facility] Comment on above: Performed By: #### P OCGLUC #### [facility] [address] [place] [address] Dr. Spring Nash Urea nitrogen/Creatinine [Mass ratio] 16.2 mg/mg Normal [facility] Comment on above: Performed By: #### P OCGLUC #### [facility] [address] [place] [address] Dr. Spring Nash BNPon 03-07-2023 Natriuretic peptide B (Bld) [Mass/Vol] 4010.0 pg/mL Critically high <=900.0 [facility] Comment on above: Performed By: #### C MP #### [facility] [address] [place] [address] Dr. Spring Nash CBC AUTO DIFFon 03-07-2023 BASO # 0.0 103/ul Normal 0.0-0.1 [facility] Comment on above: Performed By: #### P OCGLUC #### [facility] [address] [place] [address] Dr. Spring Nash Basophils/100 WBC (Bld) 0.3 % Normal 0.2-2.0 [facility] Comment on above: Performed By: #### P OCGLUC #### [facility] [address] [place] [address] Dr. Spring Nash EO # 0.3 103/ul Normal 0.0-0.7 [facility] Comment on above: Performed By: #### P OCGLUC #### [facility] [address] [place] [address] Dr. Spring Nash Eosinophils/100 WBC (Bld) 5.2 % Normal 0.9-7.0 [facility] Comment on above: Performed By: #### P OCGLUC #### [facility] [address] [place] [address] Dr. Spring Nash Erythrocyte distribution width (RBC) [Ratio] 15.7 % Critically high 11.0-15.0 [facility] Comment on above: Performed By: #### P OCGLUC #### [facility] [address] [place] [address] Dr. Spring Nash Hematocrit (Bld) [Volume fraction] 31.0 % Critically low 42.0-54.0 [facility] Comment on above: Performed By: #### P OCGLUC #### [facility] [address] [place] [address] Dr. Spring Nash Hemoglobin (Bld) [Mass/Vol] 9.6 g/dL Critically low 14.0-18.0 [facility] Comment on above: Performed By: #### P OCGLUC #### [facility] [address] [place] [address] Dr. Spring Nash IG # 0.03 10e3/ul Normal 0.00-0.03 [facility] Comment on above: Performed By: #### P OCGLUC #### [facility] [address] [place] [address] Dr. Spring Nash IG % 0.5 % Normal 0.0-0.5 [facility] Comment on above: Performed By: #### P OCGLUC #### [facility] [address] [place] [address] Dr. Spring Nash LYMPH # 0.8 103/ul Critically low 1.2-3.8 [facility] Comment on above: Performed By: #### P OCGLUC #### [facility] [address] [place] [address] Dr. Spring Nash Lymphocytes/100 WBC (Bld) 11.8 % Critically low 20.5-60.0 [facility] Comment on above: Performed By: #### P OCGLUC #### [facility] [address] [place], [place] [id number] Dr. Spring Nash MANUAL DIFF REQ NO Normal [facility] Comment on above: Performed By: #### P OCGLUC #### [facility] [address] [place] [address] Dr. Spring Nash MCH (RBC) [Entitic mass] 29.1 pg Normal 25.9-34.0 [facility] Comment on above: Performed By: #### P OCGLUC #### [facility] [address] [place] [address] Dr. Spring Nash MCHC (RBC) [Mass/Vol] 31.0 g/dL Normal 29.9-35.2 [facility] Comment on above: Performed By: #### P OCGLUC #### [facility] [address] [place] [address] Dr. Spring Nash MCV (RBC) [Entitic vol] 93.9 fL Normal 80.0-94.0 [facility] Comment on above: Performed By: #### P OCGLUC #### [facility] [address] [place] [address] Dr. Spring Nash MONO # 0.5 103/ul Normal 0.3-0.8 [facility] Comment on above: Performed By: #### P OCGLUC #### [facility] [address] [place] [address] Dr. Spring Nash Monocytes/100 WBC (Bld) 7.4 % Normal 1.7-12.0 [facility] Comment on above: Performed By: #### P OCGLUC #### [facility] [address] [place] [address] Dr. Spring Nash NEUT # 4.9 103/ul Normal 1.4-6.5 [facility] Comment on above: Performed By: #### P OCGLUC #### [facility] [address] [place] [address] Dr. Spring Nash Neutrophils/100 WBC (Bld) 74.8 % Normal 43.0-75.0 [facility] Comment on above: Performed By: #### P OCGLUC #### [facility] [address] [place] [address] Dr. Spring Nash Platelet mean volume (Bld) [Entitic vol] 11.7 fL Normal 9.5-13.5 [facility] Comment on above: Performed By: #### P OCGLUC #### [facility] [address] [address] [address] Spring Nash PLT 195 103/ul Normal 150-450 [facility] Comment on above: Performed By: #### P OCGLUC #### [facility] [address] [address] [address] Spring Nash RBC 3.30 106/ul Critically low 4.70-6.10 [facility] Comment on above: Performed By: #### P OCGLUC #### [facility] [address] [address] [address] Spring Nash WBC 6.6 103/ul Normal 4.0-11.0 [facility] Comment on above: Performed By: #### P OCGLUC #### [facility] [address] [address] [address] Spring Nash CHLORIDE URINE RANDOMon 02-12 Chloride, Urine 106 mmol/L Normal Not Estab. [facility] Comment on above: Performed By: #### P OCGLUC #### [facility] [address] [address] [address] Spring Nash POINT OF CARE GLUCOSEon 02-12 Glucose [Mass/Vol] 238 mg/dL Critically high 74-106 [facility] Comment on above: Performed By: #### C ROSITA VERDETROPN, BNP #### [facility] [address] [address] [address] Spring Nash Glucose [Mass/Vol] 215 mg/dL Critically high 74-106 [facility] Comment on above: Performed By: #### C ROSITA VERDETRVENKATESHN, BNP #### [facility] [address] [address] [address] Spring Nash Glucose [Mass/Vol] 181 mg/dL Critically high -106 [facility] Comment on above: Performed By: #### C MP, HSTROPN, BNP #### [facility] [address] [place] [address] Dr. Spring Nash PROF 14(COMP METB)on 023 Albumin [Mass/Vol] 2.4 g/dL Critically low 3.4-5.0 [facility] Comment on above: Performed By: #### C MP #### [facility] [address] [place] [address] Dr. Spring Nash Albumin/Globulin [Mass ratio] 0.7 {ratio} Normal [facility] Comment on above: Performed By: #### C MP #### [facility] [address] [place] [address] Dr. Spring Nash ALP [Catalytic activity/Vol] 102 U/L Normal 46-116 [facility] Comment on above: Performed By: #### C MP #### [facility] [address] [place] [address] Dr. Spring Nash ALT [Catalytic activity/Vol] 18 U/L Normal 16-63 [facility] Comment on above: Performed By: #### C MP #### [facility] [address] [place] [address] Dr. Spring Nash Anion gap [Moles/Vol] 13.1 mmol/L Normal [facility] Comment on above: Performed By: #### C MP #### [facility] [address] [place] [address] Dr. Spring Nash AST [Catalytic activity/Vol] 13 U/L Critically low 15-37 [facility] Comment on above: Performed By: #### C MP #### [facility] [address] [place] [address] Dr. Spring Nash Bilirubin [Mass/Vol] 0.3 mg/dL Normal 0.2-1.0 [facility] Comment on above: Performed By: #### C MP #### [facility] [address] [place] [address] Dr. Spring Nash Calcium [Mass/Vol] 8.1 mg/dL Critically low 8.5-10.1 [facility] Comment on above: Performed By: #### C MP #### [facility] [address] [address] [address] Spring Nash Chloride [Moles/Vol] 108 mmol/L Critically high 98-107 [facility] Comment on above: Performed By: #### C MP #### [facility] [address] [address] [address] Spring Nash CO2 [Moles/Vol] 24.8 mmol/L Normal 21.0-32.0 [facility] Comment on above: Performed By: #### C MP #### [facility] [address] [address] [address] Spring Nash Creatinine [Mass/Vol] 3.39 mg/dL Critically high 0.70-1.30 [facility] Comment on above: Performed By: #### C MP #### [facility] [address] [address] [address] Spring Nash EGFR-AF BARBADIAN 23 mL/min/1.73m2 Critically low >=60 [facility] Comment on above: Performed By: #### C MP #### [facility] [address] [address] [address] Spring Nash EGFR-NON AF BARBADIAN 19 mL/min/1.73m2 Critically low >=60 [facility] Comment on above: Performed By: #### C MP #### [facility] [address] [address] [address] Spring Nash Globulin (S) [Mass/Vol] 3.4 g/dL Normal T [facility] Comment on above: Performed By: #### C MP #### [facility] [address] [address] [address] Spring Nash Glucose [Mass/Vol] 101 mg/dL Normal 74-106 [facility] Comment on above: Performed By: #### C MP #### [facility] [address] [address] [address] Spring Nash Potassium [Moles/Vol] 4.9 mmol/L Normal 3.5-5.1 [facility] Comment on above: Performed By: #### C MP #### [facility] [address] [address] [address] Spring Nash Protein [Mass/Vol] 5.8 g/dL Critically low 6.4-8.2 [facility] Comment on above: Performed By: #### C MP #### [facility] [address] [address] [address] Spring Nash Sodium [Moles/Vol] 141 mmol/L Normal 136-145 [facility] Comment on above: Performed By: #### C MP #### [facility] [address] [address] [address] Spring Nash Urea nitrogen [Mass/Vol] 53.0 mg/dL Critically high 7.0-18.0 [facility] Comment on above: Performed By: #### C MP #### [facility] [address] [place] [address] Dr. Spring Nash Urea nitrogen/Creatinine [Mass ratio] 15.6 mg/mg Normal [facility] Comment on above: Performed By: #### C MP #### [facility] [address] [place] [address] Dr. Spring Nash BNPon 03-06-2023 Natriuretic peptide B (Bld) [Mass/Vol] 5021.0 pg/mL Critically high <=900.0 [facility] Comment on above: Performed By: #### B MP #### [facility] [address] [place] [address] Dr. Spring Nash CALCIUM URINEon 03-06-2023 UR CALCIUM <5.0 Critically low 5.1-21.0 [facility] Comment on above: Performed By: #### P OCGLUC #### [facility] [address] [place] [address] Dr. Spring Nash CBC AUTO DIFFon 03-06-2023 BASO # 0.0 103/ul Normal 0.0-0.1 [facility] Comment on above: Performed By: #### P OCGLUC #### [facility] [address] [place] [address] Dr. Spring Nash Basophils/100 WBC (Bld) 0.3 % Normal 0.2-2.0 [facility] Comment on above: Performed By: #### P OCGLUC #### [facility] [address] [address] [address] Spring Nash EO # 0.4 103/ul Normal 0.0-0.7 [facility] Comment on above: Performed By: #### P OCGLUC #### [facility] [address] [place] [address] Dr. Spring Nash Eosinophils/100 WBC (Bld) 5.6 % Normal 0.9-7.0 [facility] Comment on above: Performed By: #### P OCGLUC #### [facility] [address] [place] [address] Dr. Spring Nash Erythrocyte distribution width (RBC) [Ratio] 15.6 % Critically high 11.0-15.0 [facility] Comment on above: Performed By: #### P OCGLUC #### [facility] [address] [place] [address] Dr. Spring Nash Hematocrit (Bld) [Volume fraction] 30.7 % Critically low 42.0-54.0 [facility] Comment on above: Performed By: #### P OCGLUC #### [facility] [address] [place] [address] Dr. Spring Nash Hemoglobin (Bld) [Mass/Vol] 9.4 g/dL Critically low 14.0-18.0 [facility] Comment on above: Performed By: #### P OCGLUC #### [facility] [address] [place] [address] Dr. Spring Nash IG # 0.04 10e3/ul Critically high 0.00-0.03 [facility] Comment on above: Performed By: #### P OCGLUC #### [facility] [address] [place] [address] Dr. Spring Nash IG % 0.6 % Critically high 0.0-0.5 [facility] Comment on above: Performed By: #### P OCGLUC #### [facility] [address] [place] [address] Dr. Spring Nash LYMPH # 0.7 103/ul Critically low 1.2-3.8 [facility] Comment on above: Performed By: #### P OCGLUC #### [facility] [address] [place] [address] Dr. Spring Nash Lymphocytes/100 WBC (Bld) 10.7 % Critically low 20.5-60.0 [facility] Comment on above: Performed By: #### P OCGLUC #### [facility] [address] [place] [address] Dr. Spring Nash MANUAL DIFF REQ NO Normal [facility] Comment on above: Performed By: #### P OCGLUC #### [facility] [address] [place] [address] Dr. Spring Nash MCH (RBC) [Entitic mass] 29.5 pg Normal 25.9-34.0 [facility] Comment on above: Performed By: #### P OCGLUC #### [facility] [address] [place] [address] Dr. Spring Nash MCHC (RBC) [Mass/Vol] 30.6 g/dL Normal 29.9-35.2 [facility] Comment on above: Performed By: #### P OCGLUC #### [facility] [address] [place] [address] Dr. Spring Nash MCV (RBC) [Entitic vol] 96.2 fL Critically high 80.0-94 .0 [facility] Comment on above: Performed By: #### P OCGLUC #### [facility] [address] [place] [address] Dr. Spring Nash MONO # 0.6 103/ul Normal 0.3-0.8 [facility] Comment on above: Performed By: #### P OCGLUC #### [facility] [address] [place] [address] Dr. Spring Nash Monocytes/100 WBC (Bld) 8.2 % Normal 1.7-12.0 [facility] Comment on above: Performed By: #### P OCGLUC #### [facility] [address] [place] [address] Dr. Spring Nash NEUT # 5.1 103/ul Normal 1.4-6.5 [facility] Comment on above: Performed By: #### P OCGLUC #### [facility] [address] [address] [address] Sprnig Nash Neutrophils/100 WBC (Bld) 74.6 % Normal 43.0-75.0 [facility] Comment on above: Performed By: #### P OCGLUC #### [facility] [address] [address] [address] Spring Nash Platelet mean volume (Bld) [Entitic vol] 11.6 fL Normal 9.5-13.5 [facility] Comment on above: Performed By: #### P OCGLUC #### [facility] [address] [address] [address] Spring Nash PLT 176 103/ul Normal 150-450 [facility] Comment on above: Performed By: #### P OCGLUC #### [facility] [address] [address] [address] Spring Nash RBC 3.19 106/ul Critically low 4.70-6.10 [facility] Comment on above: Performed By: #### P OCGLUC #### [facility] [address] [address] [address] Spring Nash WBC 6.8 103/ul Normal 4.0-11.0 [facility] Comment on above: Performed By: #### P OCGLUC #### [facility] [address] [place] [address] Dr. Spring Nash CREATININE URINEon 3 URINE CREAT 20.22 mg/dL Normal 20.00-300. 00 [facility] Comment on above: Performed By: #### C MP, HSTROPN, BNP #### [facility] [address] [address] [address] Spring Nash ECHO LIMITED STUDYon 023 ECHO LIMITED STUDY Patient: MELVI MINOR Exam Date: 03/06/2023 : 1970 Gender:M Ordering : TONY BARKSDALE Admission #: [id number] Family : SHAIKH Lana MORSE . Order #: [id number] CLICK HERE TO VIEW EXAM ECHOCARDIOGRAM REPORT [...] Left Atrium LA Volume Index (2D A2C): 958670 mm3 Left Atrium Systolic Dimension: 4.20 cm Mitral Valve Right Ventricle Aorta AO Root Diam: 3.10 cm Aortic Valve Tricuspid Valve Pulmonic Valve Right Atrium Dictated by: Jason Lord M.D. on 03/06/2023 at 16:49 Approved by: Jason Lord M.D. on 03/06/2023 at 16:54 Normal [facility] POINT OF CARE GLUCOSEon 05-2 Glucose [Mass/Vol] 372 mg/dL Critically high 74-106 [facility] Comment on above: Performed By: #### P OCGLUC #### [facility] [address] [address] [address] Spring Nash Glucose [Mass/Vol] 183 mg/dL Critically high -106 [facility] Comment on above: Performed By: #### P OCGLUC #### [facility] [address] [address] [address] Spring Nash Glucose [Mass/Vol] 118 mg/dL Critically high 74-106 [facility] Comment on above: Performed By: #### P OCGLUC #### [facility] [address] [address] [address] Spring Nash Glucose [Mass/Vol] 145 mg/dL Critically high -106 [facility] Comment on above: Performed By: #### P OCGLUC #### [facility] [address] [place] [address] Dr. Spring Nash POTASSIUM URINEon 03-06-2023 UR POTASSIUM 17.2 mmol/L Normal [facility] Comment on above: Performed By: #### C MP, HSTROPN, BNP #### [facility] [address] [place] [address] Dr. Spring Nash PROF 14(COMP METB)on 023 Albumin [Mass/Vol] 2.3 g/dL Critically low 3.4-5.0 [facility] Comment on above: Performed By: #### B MP #### [facility] [address] [place] [address] Dr. Spring Nash Albumin/Globulin [Mass ratio] 0.7 {ratio} Normal [facility] Comment on above: Performed By: #### B MP #### [facility] [address] [place] [address] Dr. Spring Nash ALP [Catalytic activity/Vol] 121 U/L Critically high 46-116 [facility] Comment on above: Performed By: #### B MP #### [facility] [address] [place] [address] Dr. Spring Nash ALT [Catalytic activity/Vol] 14 U/L Critically low 16-63 [facility] Comment on above: Performed By: #### B MP #### [facility] [address] [place] [address] Dr. Spring Nash Anion gap [Moles/Vol] 14.2 mmol/L Normal [facility] Comment on above: Performed By: #### B MP #### [facility] [address] [address] [address] Spring Nash AST [Catalytic activity/Vol] 13 U/L Critically low 15-37 [facility] Comment on above: Performed By: #### B MP #### [facility] [address] [address] [address] Spring Nash Bilirubin [Mass/Vol] 0.3 mg/dL Normal 0.2-1.0 [facility] Comment on above: Performed By: #### B MP #### [facility] [address] [place] [address] Dr. Spring Nash Calcium [Mass/Vol] 8.0 mg/dL Critically low 8.5-10.1 [facility] Comment on above: Performed By: #### B MP #### [facility] [address] [place] [address] Dr. Spring Nash CO2 [Moles/Vol] 22.5 mmol/L Normal 21.0-32.0 [facility] Comment on above: Performed By: #### B MP #### [facility] [address] [place] [address] Dr. Spring Nash Creatinine [Mass/Vol] 3.48 mg/dL Critically high 0.70-1.30 [facility] Comment on above: Performed By: #### B MP #### [facility] [address] [address] [address] Spring Nash EGFR-AF BARBADIAN 23 mL/min/1.73m2 Critically low >=60 [facility] Comment on above: Performed By: #### B MP #### [facility] [address] [address] [address] Spring Nash EGFR-NON AF BARBADIAN 19 mL/min/1.73m2 Critically low >=60 [facility] Comment on above: Performed By: #### B MP #### [facility] [address] [address] [address] Spring Nash Globulin (S) [Mass/Vol] 3.1 g/dL Normal [facility] Comment on above: Performed By: #### B MP #### [facility] [address] [address] [address] Spring Nash Glucose [Mass/Vol] 170 mg/dL Critically high 74-106 [facility] Comment on above: Performed By: #### B MP #### [facility] [address] [address] [address] Spring Nash Potassium [Moles/Vol] 4.7 mmol/L Normal 3.5-5.1 [facility] Comment on above: Performed By: #### B MP #### [facility] [address] [place] [address] Dr. Spring Nash Protein [Mass/Vol] 5.4 g/dL Critically low 6.4-8.2 [facility] Comment on above: Performed By: #### B MP #### [facility] [address] [place] [address] Dr. Spring Nash Urea nitrogen [Mass/Vol] 50.0 mg/dL Critically high 7.0-18.0 [facility] Comment on above: Performed By: #### B MP #### [facility] [address] [place] [address] Dr. Spring Nash Urea nitrogen/Creatinine [Mass ratio] 14.4 mg/mg Normal [facility] Comment on above: Performed By: #### B MP #### [facility] [address] [place] [address] Dr. Spring Nash PROF CHEM 8 (BAS METB)on Anion gap [Moles/Vol] 13.5 mmol/L Normal [facility] Comment on above: Performed By: #### B MP #### [facility] [address] [place] [address] Dr. Spring Nash Calcium [Mass/Vol] 7.8 mg/dL Critically low 8.5-10.1 [facility] Comment on above: Performed By: #### B MP #### [facility] [address] [address] [address] Spring Nash Chloride [Moles/Vol] 107 mmol/L Normal 98-107 [facility] Comment on above: Performed By: #### B MP #### [facility] [address] [place] [address] Dr. Spring Nash CO2 [Moles/Vol] 23.6 mmol/L Normal 21.0-32.0 [facility] Comment on above: Performed By: #### B MP #### [facility] [address] [place] [address] Dr. Spring Nash Creatinine [Mass/Vol] 3.60 mg/dL Critically high 0.70-1.30 [facility] Comment on above: Performed By: #### B MP #### [facility] [address] [address] [address] Spring Nash EGFR-AF BARBADIAN 22 mL/min/1.73m2 Critically low >=60 [facility] Comment on above: Performed By: #### B MP #### [facility] [address] [place] [address] Dr. Spring Nash EGFR-NON AF BARBADIAN 18 mL/min/1.73m2 Critically low >=60 [facility] Comment on above: Performed By: #### B MP #### [facility] [address] [address] [address] Spring Nash Glucose [Mass/Vol] 175 mg/dL Critically high 74-106 [facility] Comment on above: Performed By: #### B MP #### [facility] [address] [address] [address] Spring Nash Potassium [Moles/Vol] 5.1 mmol/L Normal 3.5-5.1 [facility] Comment on above: Performed By: #### B MP #### [facility] [address] [place] [address] Dr. Spring Nash Sodium [Moles/Vol] 139 mmol/L Normal 136-145 [facility] Comment on above: Performed By: #### B MP #### [facility] [address] [address] [address] Spring Nash Urea nitrogen [Mass/Vol] 48.0 mg/dL Critically high 7.0-18.0 [facility] Comment on above: Performed By: #### B MP #### [facility] [address] [address] [address] Spring Nash Urea nitrogen/Creatinine [Mass ratio] 13.3 mg/mg Normal [facility] Comment on above: Performed By: #### B MP #### [facility] [address] [address] [address] Spring Nash SODIUM RANDOM URINEon 2022 Sodium (U) [Moles/Vol] 106 mmol/L Critically high 30-90 [facility] Comment on above: Performed By: #### C MP, HSTROPN, BNP #### [facility] [address] [place] [address] Dr. Spring Nash VANCOMYCIN TROUGHon 03-06-20 VANCOMYCIN TROUGH 8.1 ug/ml Normal 5.0-20.0 [facility] Comment on above: Performed By: #### C MP #### [facility] [address] [place] [address] Dr. Spring Nash XR CHEST 2 Von [...] by: SAMANTHA MURPHY Date: 2023-03-06 12:19 Normal [facility] BNPon 03-05-2023 Natriuretic peptide B (Bld) [Mass/Vol] 5356.0 pg/mL Critically high <=900.0 [facility] Comment on above: Performed By: #### P OCGLUC #### [facility] [address] [place] [address] Dr. Spring Nash CBC AUTO DIFFon 03-05-2023 BASO # 0.0 103/ul Normal 0.0-0.1 [facility] Comment on above: Performed By: #### P OCGLUC #### [facility] [address] [place] [address] Dr. Spring Nash Basophils/100 WBC (Bld) 0.3 % Normal 0.2-2.0 [facility] Comment on above: Performed By: #### P OCGLUC #### [facility] [address] [place] [address] Dr. Spring Nash EO # 0.4 103/ul Normal 0.0-0.7 [facility] Comment on above: Performed By: #### P OCGLUC #### [facility] [address] [place] [address] Dr. Spring Nash Eosinophils/100 WBC (Bld) 5.7 % Normal 0.9-7.0 [facility] Comment on above: Performed By: #### P OCGLUC #### [facility] [address] [place] [address] Dr. Spring Nash Erythrocyte distribution width (RBC) [Ratio] 15.6 % Critically high 11.0-15.0 [facility] Comment on above: Performed By: #### P OCGLUC #### [facility] [address] [place] [address] Dr. Spring Nash Hematocrit (Bld) [Volume fraction] 28.9 % Critically low 42.0-54.0 [facility] Comment on above: Performed By: #### P OCGLUC #### [facility] [address] [place] [address] Dr. Spring Nash Hemoglobin (Bld) [Mass/Vol] 9.4 g/dL Critically low 14.0-18.0 [facility] Comment on above: Performed By: #### P OCGLUC #### [facility] [address] [address] [address] Spring Nash IG # 0.03 10e3/ul Normal 0.00-0.03 [facility] Comment on above: Performed By: #### P OCGLUC #### [facility] [address] [place] [address] Dr. Spring Nash IG % 0.4 % Normal 0.0-0.5 [facility] Comment on above: Performed By: #### P OCGLUC #### [facility] [address] [address] [address] Spring Nash LYMPH # 0.9 103/ul Critically low 1.2-3.8 [facility] Comment on above: Performed By: #### P OCGLUC #### [facility] [address] [place] [address] Dr. Spring Nash Lymphocytes/100 WBC (Bld) 11.5 % Critically low 20.5-60.0 [facility] Comment on above: Performed By: #### P OCGLUC #### [facility] [address] [place] [address] Dr. Spring Nash MANUAL DIFF REQ NO Normal [facility] Comment on above: Performed By: #### P OCGLUC #### [facility] [address] [place] [address] Dr. Spring Nash MCH (RBC) [Entitic mass] 29.8 pg Normal 25.9-34.0 [facility] Comment on above: Performed By: #### P OCGLUC #### [facility] [address] [place] [address] Dr. Spring Nash MCHC (RBC) [Mass/Vol] 32.5 g/dL Normal 29.9-35.2 [facility] Comment on above: Performed By: #### P OCGLUC #### [facility] [address] [place] [address] Dr. Spring Nash MCV (RBC) [Entitic vol] 91.7 fL Normal 80.0-94.0 [facility] Comment on above: Performed By: #### P OCGLUC #### [facility] [address] [place], [place] [id number] Dr. Spring Nash MONO # 0.7 103/ul Normal 0.3-0.8 [facility] Comment on above: Performed By: #### P OCGLUC #### [facility] [address] [place] [address] Dr. Spring Nash Monocytes/100 WBC (Bld) 8.9 % Normal 1.7-12.0 [facility] Comment on above: Performed By: #### P OCGLUC #### [facility] [address] [place] [address] Dr. Spring Nash NEUT # 5.6 103/ul Normal 1.4-6.5 [facility] Comment on above: Performed By: #### P OCGLUC #### [facility] [address] [place] [address] Dr. Spring Nash Neutrophils/100 WBC (Bld) 73.2 % Normal 43.0-75.0 [facility] Comment on above: Performed By: #### P OCGLUC #### [facility] [address] [place] [address] Dr. Spring Nash Platelet mean volume (Bld) [Entitic vol] 11.8 fL Normal 9.5-13.5 [facility] Comment on above: Performed By: #### P OCGLUC #### [facility] [address] [place] [address] Dr. Spring Nash PLT 176 103/ul Normal 150-450 [facility] Comment on above: Performed By: #### P OCGLUC #### [facility] [address] [place] [address] Dr. Spring Nash RBC 3.15 106/ul Critically low 4.70-6.10 [facility] Comment on above: Performed By: #### P OCGLUC #### [facility] [address] [place] [address] Dr. Spring Nash WBC 7.6 103/ul Normal 4.0-11.0 [facility] Comment on above: Performed By: #### P OCGLUC #### [facility] [address] [place] [address] Dr. Spring Nash POINT OF CARE GLUCOSEon 02-12 Glucose [Mass/Vol] 272 mg/dL Critically high 74-106 [facility] Comment on above: Performed By: #### C MP, HSTROPN, BNP #### [facility] [address] [address] [address] Spring Nash Glucose [Mass/Vol] 179 mg/dL Critically high 74-106 [facility] Comment on above: Performed By: #### P OCGLUC #### [facility] [address] [address] [address] Spring Nash Glucose [Mass/Vol] 136 mg/dL Critically high -106 [facility] Comment on above: Performed By: #### P OCGLUC #### [facility] [address] [place] [address] Dr. Spring Nash PROF 14(COMP METB)on 023 Albumin [Mass/Vol] 2.3 g/dL Critically low 3.4-5.0 [facility] Comment on above: Performed By: #### P OCGLUC #### [facility] [address] [address] [address] Spring Nash Albumin/Globulin [Mass ratio] 0.8 {ratio} Normal [facility] Comment on above: Performed By: #### P OCGLUC #### [facility] [address] [address] [address] Spring Nash ALP [Catalytic activity/Vol] 116 U/L Normal 46-116 [facility] Comment on above: Performed By: #### P OCGLUC #### [facility] [address] [address] [address] Spring Nash ALT [Catalytic activity/Vol] 15 U/L Critically low 16-63 [facility] Comment on above: Performed By: #### P OCGLUC #### [facility] [address] [address] [address] Spring Nash Anion gap [Moles/Vol] 14.0 mmol/L Normal [facility] Comment on above: Performed By: #### P OCGLUC #### [facility] [address] [address] [address] Spring Nash AST [Catalytic activity/Vol] 15 U/L Normal 15-37 [facility] Comment on above: Performed By: #### P OCGLUC #### [facility] [address] [address] [address] Spring Nash Bilirubin [Mass/Vol] 0.2 mg/dL Normal 0.2-1.0 [facility] Comment on above: Performed By: #### P OCGLUC #### [facility] [address] [address] [address] Spring Nash Calcium [Mass/Vol] 8.0 mg/dL Critically low 8.5-10.1 [facility] Comment on above: Performed By: #### P OCGLUC #### [facility] [address] [address] [address] Spring Nash Chloride [Moles/Vol] 108 mmol/L Critically high 98-107 [facility] Comment on above: Performed By: #### P OCGLUC #### [facility] [address] [address] [address] Spring Nash CO2 [Moles/Vol] 22.2 mmol/L Normal 21.0-32.0 [facility] Comment on above: Performed By: #### P OCGLUC #### [facility] [address] [address] [address] Spring Nash Creatinine [Mass/Vol] 3.06 mg/dL Critically high 0.70-1.30 [facility] Comment on above: Performed By: #### P OCGLUC #### [facility] [address] [address] [address] Spring Nash EGFR-AF BARBADIAN 26 mL/min/1.73m2 Critically low >=60 [facility] Comment on above: Performed By: #### P OCGLUC #### [facility] [address] [address] [address] Spring Nash EGFR-NON AF BARBADIAN 22 mL/min/1.73m2 Critically low >=60 [facility] Comment on above: Performed By: #### P OCGLUC #### [facility] [address] [address] [address] Spring Nash Globulin (S) [Mass/Vol] 3.0 g/dL Normal [facility] Comment on above: Performed By: #### P OCGLUC #### [facility] [address] [address] [address] Spring Nash Glucose [Mass/Vol] 142 mg/dL Critically high 74-106 [facility] Comment on above: Performed By: #### P OCGLUC #### [facility] [address] [address] [address] Spring Nash Potassium [Moles/Vol] 4.2 mmol/L Normal 3.5-5.1 [facility] Comment on above: Performed By: #### P OCGLUC #### [facility] [address] [address] [address] Spring Nash Protein [Mass/Vol] 5.3 g/dL Critically low 6.4-8.2 [facility] Comment on above: Performed By: #### P OCGLUC #### [facility] [address] [address] [address] Spring Nash Sodium [Moles/Vol] 140 mmol/L Normal 136-145 [facility] Comment on above: Performed By: #### P OCGLUC #### [facility] [address] [address] [address] Spring Nash Urea nitrogen [Mass/Vol] 40.0 mg/dL Critically high 7.0-18.0 [facility] Comment on above: Performed By: #### P OCGLUC #### [facility] [address] [address] [address] Spring Nash Urea nitrogen/Creatinine [Mass ratio] 13.1 mg/mg Normal [facility] Comment on above: Performed By: #### P OCGLUC #### [facility] [address] [place] [address] Dr. Spring Nash BNPon 03-04-2023 Natriuretic peptide B (Bld) [Mass/Vol] 8915.0 pg/mL Critically high <=900.0 [facility] Comment on above: Performed By: #### P OCGLUC #### [facility] [address] [address] [address] Spring Nash CBC AUTO DIFFon 03-04-2023 BASO # 0.0 103/ul Normal 0.0-0.1 [facility] Comment on above: Performed By: #### C MP #### [facility] [address] [address] [address] Spring Nash Basophils/100 WBC (Bld) 0.2 % Normal 0.2-2.0 [facility] Comment on above: Performed By: #### C MP #### [facility] [address] [place] [address] Dr. Spring Nash EO # 0.4 103/ul Normal 0.0-0.7 [facility] Comment on above: Performed By: #### C MP #### [facility] [address] [place] [address] Dr. Spring Nash Eosinophils/100 WBC (Bld) 5.1 % Normal 0.9-7.0 [facility] Comment on above: Performed By: #### C MP #### [facility] [address] [place] [address] Dr. Spring Nash Erythrocyte distribution width (RBC) [Ratio] 15.7 % Critically high 11.0-15.0 [facility] Comment on above: Performed By: #### C MP #### [facility] [address] [place] [address] Dr. Spring Nash Hematocrit (Bld) [Volume fraction] 29.5 % Critically low 42.0-54.0 [facility] Comment on above: Performed By: #### C MP #### [facility] [address] [place] [address] Dr. Spring Nash Hemoglobin (Bld) [Mass/Vol] 9.2 g/dL Critically low 14.0-18.0 [facility] Comment on above: Performed By: #### C MP #### [facility] [address] [place] [address] Dr. Spring Nash IG # 0.03 10e3/ul Normal 0.00-0.03 [facility] Comment on above: Performed By: #### C MP #### [facility] [address] [address] [address] Spring Nash IG % 0.4 % Normal 0.0-0.5 [facility] Comment on above: Performed By: #### C MP #### [facility] [address] [address] [address] Spring Nash LYMPH # 0.9 103/ul Critically low 1.2-3.8 [facility] Comment on above: Performed By: #### C MP #### [facility] [address] [place] [address] Dr. Spring Nash Lymphocytes/100 WBC (Bld) 11.3 % Critically low 20.5-60.0 [facility] Comment on above: Performed By: #### C MP #### [facility] [address] [place] [address] Dr. Spring Nash MANUAL DIFF REQ NO Normal [facility] Comment on above: Performed By: #### C MP #### [facility] [address] [place] [address] Dr. Spring Nash MCH (RBC) [Entitic mass] 29.6 pg Normal 25.9-34.0 [facility] Comment on above: Performed By: #### C MP #### [facility] [address] [place] [address] Dr. Spring Nash MCHC (RBC) [Mass/Vol] 31.2 g/dL Normal 29.9-35.2 [facility] Comment on above: Performed By: #### C MP #### [facility] [address] [place] [address] Dr. Spring Nash MCV (RBC) [Entitic vol] 94.9 fL Critically high 80.0-94 .0 [facility] Comment on above: Performed By: #### C MP #### [facility] [address] [place] [address] Dr. Spring Nash MONO # 0.6 103/ul Normal 0.3-0.8 [facility] Comment on above: Performed By: #### C MP #### [facility] [address] [address] [address] Spring Nash Monocytes/100 WBC (Bld) 7.7 % Normal 1.7-12.0 [facility] Comment on above: Performed By: #### C MP #### [facility] [address] [address] [address] Spring Nash NEUT # 6.2 103/ul Normal 1.4-6.5 [facility] Comment on above: Performed By: #### C MP #### [facility] [address] [address] [address] Spring Nash Neutrophils/100 WBC (Bld) 75.3 % Critically high 43.0-75.0 [facility] Comment on above: Performed By: #### C MP #### [facility] [address] [address] [address] Spring Nash Platelet mean volume (Bld) [Entitic vol] 11.8 fL Normal 9.5-13.5 [facility] Comment on above: Performed By: #### C MP #### [facility] [address] [address] [address] Spring Nash PLT 183 103/ul Normal 150-450 [facility] Comment on above: Performed By: #### C MP #### [facility] [address] [address] [address] Spring Nash RBC 3.11 106/ul Critically low 4.70-6.10 [facility] Comment on above: Performed By: #### C MP #### [facility] [address] [address] [address] Spring Nash WBC 8.2 103/ul Normal 4.0-11.0 [facility] Comment on above: Performed By: #### C MP #### [facility] [address] [address] [address] Spring Nash POINT OF CARE GLUCOSEon 05-2 Glucose [Mass/Vol] 218 mg/dL Critically high 74-106 [facility] Comment on above: Performed By: #### P OCGLUC #### [facility] [address] [address] [address] Spring Nash Glucose [Mass/Vol] 193 mg/dL Critically high 74-106 [facility] Comment on above: Performed By: #### P OCGLUC #### [facility] [address] [address] [address] Spring Nash Glucose [Mass/Vol] 146 mg/dL Critically high 74-106 [facility] Comment on above: Performed By: #### C MP #### [facility] [address] [address] [address] Spring Nash Glucose [Mass/Vol] 65 mg/dL Critically low 74-106 [facility] Comment on above: Performed By: #### P OCGLUC #### [facility] [address] [place] [address] Dr. Spring Nash PROF 14(COMP METB)on 023 Albumin [Mass/Vol] 2.2 g/dL Critically low 3.4-5.0 [facility] Comment on above: Performed By: #### P OCGLUC #### [facility] [address] [address] [address] Spring Nash Albumin/Globulin [Mass ratio] 0.8 {ratio} Normal [facility] Comment on above: Performed By: #### P OCGLUC #### [facility] [address] [address] [address] Spring Nash ALP [Catalytic activity/Vol] 100 U/L Normal 46-116 [facility] Comment on above: Performed By: #### P OCGLUC #### [facility] [address] [address] [address] Spring Nash ALT [Catalytic activity/Vol] 15 U/L Critically low 16-63 [facility] Comment on above: Performed By: #### P OCGLUC #### [facility] [address] [address] [address] Spring Nash Anion gap [Moles/Vol] 13.2 mmol/L Normal [facility] Comment on above: Performed By: #### P OCGLUC #### [facility] [address] [address] [address] Spring Nash AST [Catalytic activity/Vol] 14 U/L Critically low 15-37 [facility] Comment on above: Performed By: #### P OCGLUC #### [facility] [address] [address] [address] Spring Nsah Bilirubin [Mass/Vol] 0.3 mg/dL Normal 0.2-1.0 [facility] Comment on above: Performed By: #### P OCGLUC #### [facility] [address] [address] [address] Spring Nash Calcium [Mass/Vol] 8.0 mg/dL Critically low 8.5-10.1 [facility] Comment on above: Performed By: #### P OCGLUC #### [facility] [address] [address] [address] Spring Nash Chloride [Moles/Vol] 109 mmol/L Critically high 98-107 [facility] Comment on above: Performed By: #### P OCGLUC #### [facility] [address] [address] [address] Spring Nash CO2 [Moles/Vol] 24.3 mmol/L Normal 21.0-32.0 [facility] Comment on above: Performed By: #### P OCGLUC #### [facility] [address] [address] [address] Spring Nash Creatinine [Mass/Vol] 2.38 mg/dL Critically high 0.70-1.30 [facility] Comment on above: Performed By: #### P OCGLUC #### [facility] [address] [address] [address] Spring Nash EGFR-AF BARBADIAN 35 mL/min/1.73m2 Critically low >=60 [facility] Comment on above: Performed By: #### P OCGLUC #### [facility] [address] [address] [address] Spring Nash EGFR-NON AF BARBADIAN 29 mL/min/1.73m2 Critically low >=60 [facility] Comment on above: Performed By: #### P OCGLUC #### [facility] [address] [address] [address] Spring Nash Globulin (S) [Mass/Vol] 2.9 g/dL Normal [facility] Comment on above: Performed By: #### P OCGLUC #### [facility] [address] [address] [address] Spring Nash Glucose [Mass/Vol] 107 mg/dL Critically high 74-106 [facility] Comment on above: Performed By: #### P OCGLUC #### [facility] [address] [address] [address] Spring Nash Potassium [Moles/Vol] 3.5 mmol/L Normal 3.5-5.1 [facility] Comment on above: Performed By: #### P OCGLUC #### [facility] [address] [address] [address] Spring Nash Protein [Mass/Vol] 5.1 g/dL Critically low 6.4-8.2 [facility] Comment on above: Performed By: #### P OCGLUC #### [facility] [address] [address] [address] Spring Nash Sodium [Moles/Vol] 143 mmol/L Normal 136-145 [facility] Comment on above: Performed By: #### P OCGLUC #### [facility] [address] [address] [address] Spring Nash Urea nitrogen [Mass/Vol] 34.0 mg/dL Critically high 7.0-18.0 [facility] Comment on above: Performed By: #### P OCGLUC #### [facility] [address] [address] [address] Spring Nash Urea nitrogen/Creatinine [Mass ratio] 14.3 mg/mg Normal [facility] Comment on above: Performed By: #### P OCGLUC #### [facility] [address] [address] [address] Spring Nash US KELVIN DOP LEG [...] by: MURRAY YEBOAH Date: 2023-03-04 11:26 Normal [facility] BLOOD GASES BTYon 03-03-2023 02 MODE ROOM AIR [facility] Comment on above: Performed By: #### C MP, HSTROPN, BNP #### [facility] [address] [place] [address] Dr. Spring Nash ALLENS TEST Positive [facility] Comment on above: Performed By: #### C MP, HSTROPN, BNP #### [facility] [address] [address] [address] Spring Nash Base excess Calc (Bld) [Moles/Vol] -2.2000 mmol/L Critically low -2.0-2.0 [facility] Comment on above: Performed By: #### C MP, HSTROPN, BNP #### [facility] [address] [address] [address] Spring Nash BIPAP PRESSURE [facility] Comment on above: Performed By: #### C MP, HSTROPN, BNP #### [facility] [address] [address] [address] Spring Nash CPAP [facility] Comment on above: Performed By: #### C MP, HSTROPN, BNP #### [facility] [address] [address] [address] Spring Nash FIO2 [facility] Comment on above: Performed By: #### C MP, HSTROPN, BNP #### [facility] [address] [address] [address] Spring Nash HCO3 (Bld) [Moles/Vol] 22.8 mmol/L Normal 22.0-26.0 [facility] Comment on above: Performed By: #### C MP, HSTROPN, BNP #### [facility] [address] [address] [address] Spring Nash [facility] Normal [facility] Comment on above: Performed By: #### C MP, HSTROPN, BNP #### [facility] [address] [address] [address] Spring Nash MINUTE VOLUME Normal [facility] Comment on above: Performed By: #### C MP, HSTROPN, BNP #### [facility] [address] [address] [address] Spring Nash Oxygen (Bld) [Partial pressure] 86.8 mm[Hg] Normal 80.0-100.0 [facility] Comment on above: Performed By: #### C MP, HSTROPN, BNP #### [facility] [address] [address] [address] Spring Nash Oxygen saturation in Blood 97.7 % Normal 95.0-100.0 [facility] Comment on above: Performed By: #### C MP, HSTROPN, BNP #### [facility] [address] [address] [address] Spring Nash PCO2 37.9 mmHg Normal 35.0-45.0 [facility] Comment on above: Performed By: #### C MP, HSTROPN, BNP #### [facility] [address] [place] [address] Dr. Spring Nash [facility] Normal [facility] Comment on above: Performed By: #### C MP, HSTROPN, BNP #### [facility] [address] [address] [address] Spring Nash pH (Bld) 7.388 [pH] Normal 7.350-7.45 0 [facility] Comment on above: Performed By: #### C MP, HSTROPN, BNP #### [facility] [address] [place] [address] Dr. Spring Nash [facility] Comment on above: Performed By: #### C MP, HSTROPN, BNP #### [facility] [address] [place] [address] Dr. Spring Nash [facility] Comment on above: Performed By: #### C MP, HSTROPN, BNP #### [facility] [address] [place] [address] Dr. Spring Nash PUNCTURE SITE LR [facility] Comment on above: Performed By: #### C MP, HSTROPN, BNP #### [facility] [address] [place] [address] Dr. Spring Nash [facility] Comment on above: Performed By: #### C MP, HSTROPN, BNP #### [facility] [address] [place] [address] Dr. Spring Nash [facility] Comment on above: Performed By: #### C MP, HSTROPN, BNP #### [facility] [address] [place] [address] Dr. Spring Nash [facility] Comment on above: Performed By: #### C MP, HSTROPN, BNP #### [facility] [address] [place] [address] Dr. Spring Nash BNPon 03-03-2023 Natriuretic peptide B (Bld) [Mass/Vol] 04681.0 pg/mL Critically high <=900.0 [facility] Comment on above: Performed By: #### C MP, HSTROPN, BNP #### [facility] [address] [place] [address] Dr. Spring Nash CBC AUTO DIFFon 03-03-2023 BASO # 0.0 103/ul Normal 0.0-0.1 [facility] Comment on above: Performed By: #### C MP #### [facility] [address] [place] [address] Dr. Spring Nash Basophils/100 WBC (Bld) 0.2 % Normal 0.2-2.0 [facility] Comment on above: Performed By: #### C MP #### [facility] [address] [place] [address] Dr. Spring Nash EO # 0.4 103/ul Normal 0.0-0.7 [facility] Comment on above: Performed By: #### C MP #### [facility] [address] [place] [address] Dr. Spring Nash Eosinophils/100 WBC (Bld) 3.2 % Normal 0.9-7.0 [facility] Comment on above: Performed By: #### C MP #### [facility] [address] [place] [address] Dr. Spring Nash Erythrocyte distribution width (RBC) [Ratio] 15.1 % Critically high 11.0-15.0 [facility] Comment on above: Performed By: #### C MP #### [facility] [address] [place] [address] Dr. Spring Nash Hematocrit (Bld) [Volume fraction] 33.2 % Critically low 42.0-54.0 [facility] Comment on above: Performed By: #### C MP #### [facility] [address] [place] [address] Dr. pSring Nash Hemoglobin (Bld) [Mass/Vol] 10.3 g/dL Critically low 14.0-18.0 [facility] Comment on above: Performed By: #### C MP #### [facility] [address] [place] [address] Dr. Spring Nash IG # 0.08 10e3/ul Critically high 0.00-0.03 [facility] Comment on above: Performed By: #### C MP #### [facility] [address] [place] [address] Dr. Spring Nash IG % 0.7 % Critically high 0.0-0.5 [facility] Comment on above: Performed By: #### C MP #### [facility] [address] [place] [address] Dr. Spring Nash LYMPH # 0.9 103/ul Critically low 1.2-3.8 [facility] Comment on above: Performed By: #### C MP #### [facility] [address] [place] [address] Dr. Spring Nash Lymphocytes/100 WBC (Bld) 7.5 % Critically low 20.5-60.0 [facility] Comment on above: Performed By: #### C MP #### [facility] [address] [place] [address] Dr. Spring Nash MANUAL DIFF REQ NO Normal [facility] Comment on above: Performed By: #### C MP #### [facility] [address] [place] [address] Dr. Spring Nash MCH (RBC) [Entitic mass] 29.2 pg Normal 25.9-34.0 [facility] Comment on above: Performed By: #### C MP #### [facility] [address] [place] [address] Dr. Spring Nash MCHC (RBC) [Mass/Vol] 31.0 g/dL Normal 29.9-35.2 [facility] Comment on above: Performed By: #### C MP #### [facility] [address] [place] [address] Dr. Spring Nash MCV (RBC) [Entitic vol] 94.1 fL Critically high 80.0-94 .0 [facility] Comment on above: Performed By: #### C MP #### [facility] [address] [place] [address] Dr. Spring Nash MONO # 0.8 103/ul Normal 0.3-0.8 [facility] Comment on above: Performed By: #### C MP #### [facility] [address] [place] [address] Dr. Spring Nash Monocytes/100 WBC (Bld) 6.2 % Normal 1.7-12.0 [facility] Comment on above: Performed By: #### C MP #### [facility] [address] [place] [address] Dr. Spring Nash NEUT # 9.9 103/ul Critically high 1.4-6.5 [facility] Comment on above: Performed By: #### C MP #### [facility] [address] [place] [address] Dr. Spring Nash Neutrophils/100 WBC (Bld) 82.2 % Critically high 43.0-75.0 [facility] Comment on above: Performed By: #### C MP #### [facility] [address] [place] [address] Dr. Spring Nash Platelet mean volume (Bld) [Entitic vol] 11.8 fL Normal 9.5-13.5 [facility] Comment on above: Performed By: #### C MP #### [facility] [address] [place] [address] Dr. Spring Nash PLT 196 103/ul Normal 150-450 [facility] Comment on above: Performed By: #### C MP #### [facility] [address] [place] [address] Dr. Spring Nash RBC 3.53 106/ul Critically low 4.70-6.10 [facility] Comment on above: Performed By: #### C MP #### [facility] [address] [place] [address] Dr. Spring Nash WBC 12.0 103/ul Critically high 4.0-11.0 [facility] Comment on above: Performed By: #### C MP #### [facility] [address] [place] [address] Dr. Spring Nash BASO # 0.0 103/ul Normal 0.0-0.1 [facility] Comment on above: Performed By: #### C MP #### [facility] [address] [place] [address] Dr. Srping Nash Basophils/100 WBC (Bld) 0.3 % Normal 0.2-2.0 [facility] Comment on above: Performed By: #### C MP #### [facility] [address] [place] [address] Dr. Spring Nash EO # 0.5 103/ul Normal 0.0-0.7 [facility] Comment on above: Performed By: #### C MP #### [facility] [address] [place] [address] Dr. Spring Nash Eosinophils/100 WBC (Bld) 3.8 % Normal 0.9-7.0 [facility] Comment on above: Performed By: #### C MP #### [facility] [address] [address] [address] Spring Nash Erythrocyte distribution width (RBC) [Ratio] 14.9 % Normal 11.0-15.0 [facility] Comment on above: Performed By: #### C MP #### [facility] [address] [address] [address] Spring Nash Hematocrit (Bld) [Volume fraction] 33.1 % Critically low 42.0-54.0 [facility] Comment on above: Performed By: #### C MP #### [facility] [address] [address] [address] Spring Nash Hemoglobin (Bld) [Mass/Vol] 10.6 g/dL Critically low 14.0-18.0 [facility] Comment on above: Performed By: #### C MP #### [facility] [address] [place] [address] Dr. Spring Nash IG # 0.07 10e3/ul Critically high 0.00-0.03 [facility] Comment on above: Performed By: #### C MP #### [facility] [address] [address] [address] Spring Nash IG % 0.6 % Critically high 0.0-0.5 [facility] Comment on above: Performed By: #### C MP #### [facility] [address] [address] [address] Spring Nash LYMPH # 1.1 103/ul Critically low 1.2-3.8 [facility] Comment on above: Performed By: #### C MP #### [facility] [address] [address] [address] Spring Nash Lymphocytes/100 WBC (Bld) 9.2 % Critically low 20.5-60.0 [facility] Comment on above: Performed By: #### C MP #### [facility] [address] [place] [address] Dr. Spring Nash MANUAL DIFF REQ NO Normal [facility] Comment on above: Performed By: #### C MP #### [facility] [address] [address] [address] Spring Nash MCH (RBC) [Entitic mass] 29.7 pg Normal 25.9-34.0 [facility] Comment on above: Performed By: #### C MP #### [facility] [address] [address] [address] Spring Nash MCHC (RBC) [Mass/Vol] 32.0 g/dL Normal 29.9-35.2 [facility] Comment on above: Performed By: #### C MP #### [facility] [address] [address] [address] Spring Nash MCV (RBC) [Entitic vol] 92.7 fL Normal 80.0-94.0 [facility] Comment on above: Performed By: #### C MP #### [facility] [address] [place] [address] Dr. Spring Nash MONO # 0.7 103/ul Normal 0.3-0.8 [facility] Comment on above: Performed By: #### C MP #### [facility] [address] [address] [address] Spring Nash Monocytes/100 WBC (Bld) 6.1 % Normal 1.7-12.0 [facility] Comment on above: Performed By: #### C MP #### [facility] [address] [place] [address] Dr. Spring Nash NEUT # 9.4 103/ul Critically high 1.4-6.5 [facility] Comment on above: Performed By: #### C MP #### [facility] [address] [place] [address] Dr. Spring Nash Neutrophils/100 WBC (Bld) 80.0 % Critically high 43.0-75.0 [facility] Comment on above: Performed By: #### C MP #### [facility] [address] [place] [address] Dr. Spring Nash Platelet mean volume (Bld) [Entitic vol] 11.8 fL Normal 9.5-13.5 [facility] Comment on above: Performed By: #### C MP #### [facility] [address], [place] [address] [address]. Spring Nash PLT 210 103/ul Normal 150-450 [facility] Comment on above: Performed By: #### C MP #### [facility] [address], [place] [address] Dr. Spring Nash RBC 3.57 106/ul Critically low 4.70-6.10 [facility] Comment on above: Performed By: #### C MP #### [facility] [address], [place] [address] Dr. Spring Nash WBC 11.7 103/ul Critically high 4.0-11.0 [facility] Comment on above: Performed By: #### C MP #### [facility] [address], [place] [address] Dr. Spring Nash CRPon 03-03-2023 CRP 1.0 mg/dL Normal <=1.0 [facility] Comment on above: Performed By: #### B MP #### [facility] [address], [place] [address] Dr. Spring Nash CTA CHEST WO W [...] LOTTIE NESBITT Date: 2023-03-03 00:50 Normal [facility] D-DIMERon 03-03-2023 D-DIMER 0.67 mg/L FEU Critically high <=0.59 [facility] Comment on above: Performed By: #### P OCGLUC #### [facility] [address] [address] [address] Spring Nash D-DIMER COMMENTS SEE BELOW Normal [facility] Comment on above: Result Comment: Incr [...] hospitalization. Performed By: #### P OCGLUC #### [facility] [address] [address] [address] Spring Nash POINT OF CARE GLUCOSEon 02-12 Glucose [Mass/Vol] 233 mg/dL Critically high 74-106 [facility] Comment on above: Performed By: #### P OCGLUC #### [facility] [address] [address] [address] Spring Nash Glucose [Mass/Vol] 177 mg/dL Critically high -106 [facility] Comment on above: Performed By: #### P OCGLUC #### [facility] [address] [place] [address] Dr. Spring Nash Glucose [Mass/Vol] 268 mg/dL Critically high -106 [facility] Comment on above: Performed By: #### P OCGLUC #### [facility] [address] [place] [address] Dr. Spring Nash PROF 14(COMP METB)on 023 Albumin [Mass/Vol] 2.6 g/dL Critically low 3.4-5.0 [facility] Comment on above: Performed By: #### C MP, HSTROPN, BNP #### [facility] [address] [place] [address] Dr. Spring Nash Albumin/Globulin [Mass ratio] 0.8 {ratio} Normal [facility] Comment on above: Performed By: #### C MP, HSTROPN, BNP #### [facility] [address] [place] [address] Dr. Spring Nash ALP [Catalytic activity/Vol] 160 U/L Critically high 46-116 [facility] Comment on above: Performed By: #### C MP, HSTROPN, BNP #### [facility] [address] [place] [address] Dr. Spring Nash ALT [Catalytic activity/Vol] 17 U/L Normal 16-63 [facility] Comment on above: Performed By: #### C MP, HSTROPN, BNP #### [facility] [address] [place] [address] Dr. Spring Nash Anion gap [Moles/Vol] 14.8 mmol/L Normal [facility] Comment on above: Performed By: #### C MP, HSTROPN, BNP #### [facility] [address] [place] [address] Dr. Spring Nash AST [Catalytic activity/Vol] 17 U/L Normal 15-37 [facility] Comment on above: Performed By: #### C MP, HSTROPN, BNP #### [facility] [address] [place] [address] Dr. Spring Nash Bilirubin [Mass/Vol] 0.5 mg/dL Normal 0.2-1.0 [facility] Comment on above: Performed By: #### C MP, HSTROPN, BNP #### [facility] [address] [place] [address] Dr. Spring Nash Calcium [Mass/Vol] 8.3 mg/dL Critically low 8.5-10.1 [facility] [place] [facility] Comment on above: Performed By: #### C MP, HSTROPN, BNP #### [facility] [address] [address] [address] Spring Nash Chloride [Moles/Vol] 106 mmol/L Normal 98-107 [facility] Comment on above: Performed By: #### C MP, HSTROPN, BNP #### [facility] [address] [address] [address] Spring Nash CO2 [Moles/Vol] 21.9 mmol/L Normal 21.0-32.0 [facility] Comment on above: Performed By: #### C MP, HSTROPN, BNP #### [facility] [address] [place] [address] Dr. Spring Nash Creatinine [Mass/Vol] 2.00 mg/dL Critically high 0.70-1.30 [facility] Comment on above: Performed By: #### C MP, HSTROPN, BNP #### [facility] [address] [place] [address] Dr. Spring Nash EGFR-AF BARBADIAN 43 mL/min/1.73m2 Critically low >=60 [facility] Comment on above: Performed By: #### C MP, HSTROPN, BNP #### [facility] [address] [place] [address] Dr. Spring Nash EGFR-NON AF BARBADIAN 35 mL/min/1.73m2 Critically low >=60 [facility] Comment on above: Performed By: #### C MP, HSTROPN, BNP #### [facility] [address] [address] [address] Spring Nash Globulin (S) [Mass/Vol] 3.3 g/dL Normal [facility] Comment on above: Performed By: #### C MP, HSTROPN, BNP #### [facility] [address] [address] [address] Spring Nash Glucose [Mass/Vol] 306 mg/dL Critically high 74-106 [facility] Comment on above: Performed By: #### C MP, HSTROPN, BNP #### [facility] [address] [address] [address] Spring Nash Potassium [Moles/Vol] 3.7 mmol/L Normal 3.5-5.1 [facility] Comment on above: Performed By: #### C MP, HSTROPN, BNP #### [facility] [address] [place] [address] Dr. Spring Nash Protein [Mass/Vol] 5.9 g/dL Critically low 6.4-8.2 [facility] Comment on above: Performed By: #### C MP, HSTROPN, BNP #### [facility] [address] [place] [address] Dr. Spring Nash Sodium [Moles/Vol] 139 mmol/L Normal 136-145 [facility] Comment on above: Performed By: #### C MP, HSTROPN, BNP #### [facility] [address] [place] [address] Dr. Spring Nash Urea nitrogen [Mass/Vol] 30.0 mg/dL Critically high 7.0-18.0 [facility] Comment on above: Performed By: #### C MP, HSTROPN, BNP #### [facility] [address] [place] [address] Dr. Spring Nash Urea nitrogen/Creatinine [Mass ratio] 15.0 mg/mg Normal [facility] Comment on above: Performed By: #### C MP, HSTROPN, BNP #### [facility] [address] [place] [address] Dr. Spring Nash Albumin [Mass/Vol] 2.7 g/dL Critically low 3.4-5.0 [facility] Comment on above: Performed By: #### C MP, HSTROPN, BNP #### [facility] [address] [place] [address] Dr. Spring Nash Albumin/Globulin [Mass ratio] 0.8 {ratio} Normal [facility] Comment on above: Performed By: #### C MP, HSTROPN, BNP #### [facility] [address] [place] [address] Dr. Spring Nash ALP [Catalytic activity/Vol] 188 U/L Critically high 46-116 [facility] Comment on above: Performed By: #### C MP, HSTROPN, BNP #### [facility] [address] [place] [address] Dr. Spring Nash ALT [Catalytic activity/Vol] 19 U/L Normal 16-63 [facility] Comment on above: Performed By: #### C MP, HSTROPN, BNP #### [facility] [address] [place] [address] Dr. Spring Nash Anion gap [Moles/Vol] 14.4 mmol/L Normal [facility] Comment on above: Performed By: #### C MP, HSTROPN, BNP #### [facility] [address] [place] [address] Dr. Spring Nash AST [Catalytic activity/Vol] 18 U/L Normal 15-37 [facility] Comment on above: Performed By: #### C MP, HSTROPN, BNP #### [facility] [address] [place] [address] Dr. Spring Nash Bilirubin [Mass/Vol] 0.4 mg/dL Normal 0.2-1.0 [facility] Comment on above: Performed By: #### C MP, HSTROPN, BNP #### [facility] [address] [place] [address] Dr. Spring Nash Calcium [Mass/Vol] 8.3 mg/dL Critically low 8.5-10.1 [facility] Comment on above: Performed By: #### C MP, HSTROPN, BNP #### [facility] [address] [place] [address] Dr. Spring Nash Chloride [Moles/Vol] 106 mmol/L Normal 98-107 [facility] Comment on above: Performed By: #### C MP, HSTROPN, BNP #### [facility] [address] [place] [address] Dr. Spring Nash CO2 [Moles/Vol] 23.7 mmol/L Normal 21.0-32.0 [facility] Comment on above: Performed By: #### C MP, HSTROPN, BNP #### [facility] [address] [place] [address] Dr. Spring Nash Creatinine [Mass/Vol] 2.10 mg/dL Critically high 0.70-1.30 [facility] Comment on above: Performed By: #### C MP, HSTROPN, BNP #### [facility] [address] [place] [address] Dr. Spring Nash EGFR-AF BARBADIAN 41 mL/min/1.73m2 Critically low >=60 [facility] Comment on above: Performed By: #### C MP, HSTROPN, BNP #### [facility] [address] [place] [address] Dr. Spring Nash EGFR-NON AF BARBADIAN 33 mL/min/1.73m2 Critically low >=60 [facility] Comment on above: Performed By: #### C MP, HSTROPN, BNP #### [facility] [address] [place] [address] Dr. Spring Nash Globulin (S) [Mass/Vol] 3.4 g/dL Normal [facility] Comment on above: Performed By: #### C MP, HSTROPN, BNP #### [facility] [address] [place] [address] Dr. Spring Nash Glucose [Mass/Vol] 343 mg/dL Critically high 74-106 [facility] Comment on above: Performed By: #### C MP, HSTROPN, BNP #### [facility] [address] [place] [address] Dr. Spring Nash Potassium [Moles/Vol] 4.1 mmol/L Normal 3.5-5.1 [facility] Comment on above: Performed By: #### C MP, HSTROPN, BNP #### [facility] [address] [place] [address] Dr. Spring Nash Protein [Mass/Vol] 6.1 g/dL Critically low 6.4-8.2 [facility] Comment on above: Performed By: #### C MP, HSTROPN, BNP #### [facility] [address] [address] [address] Spring Nash Sodium [Moles/Vol] 140 mmol/L Normal 136-145 [facility] Comment on above: Performed By: #### C MP, HSTROPN, BNP #### [facility] [address] [address] [address] Spring Nash Urea nitrogen [Mass/Vol] 29.0 mg/dL Critically high 7.0-18.0 [facility] Comment on above: Performed By: #### C MP, HSTROPN, BNP #### [facility] [address] [place] [address] Dr. Spring Nash Urea nitrogen/Creatinine [Mass ratio] 13.8 mg/mg Normal [facility] Comment on above: Performed By: #### C MP, HSTROPN, BNP #### [facility] [address] [place] [address] Dr. Spring Nash SED RATE WESTERGRENon 2022 SED RATE 52 mm/hr Critically high <=20 [facility] Comment on above: Performed By: #### C MP, HSTROPN, BNP #### [facility] [address] [place] [address] Dr. Spring Nash TROPONIN, HIGH SENSITIVITYon 03-03-2023 HSTROP 44.7 pg/mL Normal 4.0-76.1 [facility] Comment on above: Result Comment: CUT- OFF POINTS HAVE BEEN ESTABLISHED BASED ON THE FOURTH UNIVERSAL DEFINITIONS OF MYOCARDIAL INFARCTION. THE UPPER REFERENCE LIMIT (URL) OF TROPONIN, DEFINED THE 99TH PERCENTILE OF cTnI DISTRIBUTION IN A REFERENCE POPULATION, HAS BEEN CONFIRMED THE DECISION THRESHOLD FOR NM DIAGNOSIS. Performed By: #### C MP, HSTROPN, BNP #### [facility] [address] [place] [address] Dr. Spring Nash URIC ACID SERUMon 03-03-2023 Urate [Mass/Vol] 7.3 mg/dL Critically high 3.5-7.2 [facility] Comment on above: Performed By: #### B MP #### [facility] [address] [address] [address] Spring Nash Covid-19 PCR ([facility])on 01-13 SARS-CoV-2 (COVID-19) RNA HONEY+probe Ql (Unsp spec) Not detected Normal NOT DETECTED [facility] Comment on above: Result Comment: This test is not yet approved or cleared by the [place] FDA. When there are no FDA-approved or cleared tests available, and other criteria are met, FDA can make tests available under an emergency access mechanism called an Emergency Use Authorization (EUA). The EUA for this test is supported by the [place] of Health and Human Service's (HHS's) declaration [...] By: #### C MEHREEN HSTROPN, BNP #### [facility] [address] [place] [address] Dr. Spring Nash INFLUENZA A AND B AGon 01-31 [facility] SEE BELOW Normal [facility] Comment on above: Result Comment: Nega tive for Flu A protein angiten. Infection due to Flu A cannot be ruled out. Flu A angiten in the sample may be below the detection limit of the test. Performed By: #### C MEHREEN, HSTROPN, BNP #### [facility] [id number] Spring [facility] Normal [facility] Comment on above: Result Comment: Nega tive for Flu B protein antigen. Infection due to Flu B cannot be ruled out. Flu B antigen in the sample may be below the detection limit of the test. Performed By: #### C MP, HSTROPN, BNP #### [facility] [address] [place] [address] Dr. Spring Nash INFLUENZA A AG Negative Normal NEGATIVE SEE COMMENT [facility] Comment on above: Performed By: #### C MP, HSTROPN, BNP #### [facility] [address] [address] [address] Spring Nash INFLUENZA B AG Negative Normal NEGATIVE SEE COMMENT [facility] Comment on above: Performed By: #### C MP, HSTROPN, BNP #### [facility] [address] [address] [address] Spring Nash SYMPTOMATIC COVID-19 ANTIGEN on 01-31-2023 EUA Statement SEE BELOW Normal [facility] Comment on above: Result Comment: This test [...] sooner. Performed By: #### P OCGLUC #### [facility] [address] [place] [address] Dr. Spring Nash SARS-CoV-2 (COVID-19) RNA HONEY+probe Ql (Unsp spec) Negative Normal NEGATIVE [facility] Comment on above: Performed By: #### P OCGLUC #### [facility] [address] [place] [address] Dr. Spring Nash Study observation Right reti na by 01-08-2023 [facility] Radiology Study observation (narrative) [facility] Telephone Encounteron 2022 [employer] Authentication Interface Message Text Pt's family member Ayla Minor called to let us know that pt is admitted to the hospital currently so he would need to have the urgent eye appt for tomorrow rescheduled. Contact Ayla @[phone] Normal [facility] Telephone Encounteron 2022 [employer] Authentication Interface Message Text Patient states can come in next Saturday at 10 am Normal [facility] Patient Instructionson 01-01 [employer] Interface Message Text Use the provided [...] an appointment for next Saturday. Normal [facility] Progress Noteson 01-01-2023 [employer] Interface Message Text Urgent visit for [...] resident's note. Brady Lowry MD Normal [facility] Telephone Encounteron 2022 [employer] Authentication Interface Message Text On chart review, [...] patient in for an urgent visit at [facility] located 3rd floor [facility] Urgent visit today at 2:00 PM. Dilate OU Lyndsay Cooper MD Ophthalmology Resident, PGY-2 Normal [facility] [employer] Authentication Interface Message Text Mr. Minor is a patient of Dr. Frank. He cannot see out of his R eye... sees nothing. States he woke up today with eye unable to open due to discharge. Believes he has an infection. He can be reached at [phone]. [facility]OS - [facility]U - BOTH EY ESon 12-19-2022 Right Eye Macula findings include microaneurysms. Periphery findings include hemorrhage. Left Eye Macula findings include microaneurysms. Periphery findings include hemorrhage, neovascularization. [facility] Radiology Study observation (narrative) [facility] CUI RETINAL PHOTOCOAGULATION - OU - BOTH EYESon 12-19-2022 [facility] Radiology Study observation (narrative) [facility] Progress Noteson 12-19-2022 [employer] Authentication Interface Message Text Lost to f/u [...] Dilate OU OCT mac OU Normal [facility] System Study observation Right reti na by OCTon 12-19-2022 [facility] Radiology Study observation (narrative) [facility] INTRAVITREAL INJECTION, PHAR MACOLOGIC AGENT - OU [...] mL Route: Intravitreal, Site: Right Eye Lot: [id number], Expiration date: 10/18/2022 Left Eye Preparation included 10% betadine to eyelids. A 30 gauge needle was used. Injection Medications: 1.25 mg bevacizumab 1.25MG/0.05 mL Route: Intravitreal, Site: Left Eye Lot: [id number], Expiration date: 10/18/2022 Post-op Right Eye Post [...] written and verbal post procedure care education. [facility] Radiology Study observation (narrative) [facility] Study observation Right reti na by OCTon 10-17-2022 [facility] Radiology Study observation (narrative) [facility] CBC W MANUAL DIFFon 10-04-20 22 ATYPICAL LYMPH # Normal [facility] Comment on above: Performed By: #### C SHIRA #### [facility] [address] [place] [address] Dr. Spring Nash ATYPICAL LYMPH % Normal [facility] Comment on above: Performed By: #### C SHIRA #### [facility] [address] [place] [address] Dr. Spring Nash BAND # 0.0 103/ul Normal 0.0-0.3 [facility] Comment on above: Performed By: #### C SHIRA #### [facility] [address] [place] [address] Dr. Spring Nash BAND % 0 % Normal 0-5 [facility] Comment on above: Performed By: #### C SHIRA #### [facility] [address] [address] [address] Spring Nash BASOM # 0.00 103/ul Normal 0.00-0.10 [facility] Comment on above: Performed By: #### C SHIRA #### [facility] [address] [address] [address] Spring Nash BASOM % 0.0 % Critically low 0.2-2.0 [facility] Comment on above: Performed By: #### C SHIRA #### [facility] [address] [place] [address] Dr. Spring Nash BLAST # Normal [facility] Comment on above: Performed By: #### C SHIRA #### [facility] [address] [place] [address] Dr. Spring Nash BLAST % Normal [facility] Comment on above: Performed By: #### C SHIRA #### [facility] [address] [place] [address] Dr. Spring Nash CORRECTED WBC Normal 4.0-11.0 [facility] Comment on above: Performed By: #### C SHIRA #### [facility] [address] [place] [address] Dr. Spring Nash EOS # 0.00 103/ul Normal 0.00-0.70 [facility] Comment on above: Performed By: #### C SHIRA #### [facility] [address] [place] [address] Dr. Spring Nash EOS% 0.0 % Critically low 0.9-7.0 [facility] Comment on above: Performed By: #### C SHIRA #### [facility] [address] [place] [address] Dr. Spring Nash HCT 28.5 % Critically low 42.0-54.0 [facility] Comment on above: Performed By: #### C SHIRA #### [facility] [address] [place] [address] Dr. Spring Nash HGB 9.5 g/dl Critically low 14.0-18.0 [facility] Comment on above: Performed By: #### C SHIRA #### [facility] [address] [place] [address] Dr. Spring Nash LYMPHM # 0.00 103/ul Critically low 1.20-3.80 [facility] Comment on above: Performed By: #### C SHIRA #### [facility] [address] [place] [address] Dr. Spring Nash LYMPHM% 0.0 % Critically low 20.5-60.0 [facility] Comment on above: Performed By: #### C SHIRA #### [facility] [address] [place] [address] Dr. Spring Nash MCH 30.3 pg Normal 25.9-34.0 [place] [facility] Comment on above: Performed By: #### C SHIRA #### [facility] [address] [place] [address] Dr. Spring Nash MCHC 33.3 g/dl Normal 29.9-35.2 [facility] Comment on above: Performed By: #### C SHIRA #### [facility] [address] [place] [address] Dr. Spring Nash MCV 90.8 fL Normal 80.0-94.0 [facility] Comment on above: Performed By: #### C SHIRA #### [facility] [address] [place] [address] Dr. Spring Nash METAMYELOCYTE # Normal [facility] Comment on above: Performed By: #### C SHIRA #### [facility] [address] [place] [address] Dr. Spring Nash METAMYELOCYTE % Normal [facility] Comment on above: Performed By: #### C SHIRA #### [facility] [address] [place] [address] Dr. Spring Nash MONOM# 0.00 103/ul Critically low 0.30-0.80 [facility] Comment on above: Performed By: #### C SHIRA #### [facility] [id number] Spring Nash MONOM% 0.0 % Critically low 1.7-12.0 [facility] Comment on above: Performed By: #### C SHIRA #### [facility] [id number] Spring Nash MPV 12.0 fL Normal 9.5-13.5 [facility] Comment on above: Performed By: #### C SHIRA #### [facility] [address] [address] [address] Spring Nash MYELOCYTE # Normal [facility] Comment on above: Performed By: #### C SHIRA #### [facility] [address] [place] [address] Dr. Spring Nash MYELOCYTE % Normal [facility] Comment on above: Performed By: #### Dread SILVA #### [facility] [address] [place] [address] Dr. Spring Nash NRBC Normal [facility] Comment on above: Performed By: #### C SHIRA #### [facility] [address] [place] [address] Dr. Spring Nash PLT 182 103/ul Normal 150-450 [facility] Comment on above: Performed By: #### C SHIRA #### [facility] [address] [place], [place] [id number] Dr. Spring Nash RBC 3.14 106/ul Critically low 4.70-6.10 [facility] Comment on above: Performed By: #### C SHIRA #### [facility] [address] [place], [place] [id number] Dr. Spring Nash RDW 13.4 % Normal 11.0-15.0 [facility] Comment on above: Performed By: #### C SHIRA #### [facility] [address] [place], [place] [id number] Dr. Spring Nash SEG # 11.40 103/ul Critically high 1.40-6.50 [facility] Comment on above: Performed By: #### C SHIRA #### [facility] [address] [address] [address] Spring Nash SEG % 100.0 % Critically high 43.0-75.0 [facility] Comment on above: Performed By: #### C SHIRA #### [facility] [address] [address] [address] Spring Nash WBC 11.4 103/ul Critically high 4.0-11.0 [facility] Comment on above: Performed By: #### C SHIRA #### [facility] [address] [address] [address] Spring Nash POINT OF CARE GLUCOSEon 09-14 Glucose [Mass/Vol] 243 mg/dL Critically high 74-106 [facility] Comment on above: Performed By: #### P OCGLUC #### [facility] [address] [place] [address] Dr. Spring Nash Glucose [Mass/Vol] 219 mg/dL Critically high 74-106 [facility] Comment on above: Performed By: #### P OCGLUC #### [facility] [address] [place] [address] Dr. Spring Nash PROF 14(COMP METB)on 022 Albumin [Mass/Vol] 2.5 g/dL Critically low 3.4-5.0 [facility] Comment on above: Performed By: #### C MP #### [facility] [address] [place] [address] Dr. Spring Nash Albumin/Globulin [Mass ratio] 0.7 {ratio} Normal [facility] Comment on above: Performed By: #### C MP #### [facility] [address] [place] [address] Dr. Spring Nash ALP [Catalytic activity/Vol] 96 U/L Normal 46-116 [facility] Comment on above: Performed By: #### C MP #### [facility] [address] [place] [address] Dr. Spring Nash ALT [Catalytic activity/Vol] 16 U/L Normal 16-63 [facility] Comment on above: Performed By: #### C MP #### [facility] [address] [address] [address] Spring Nash Anion gap [Moles/Vol] 12.3 mmol/L Normal [facility] Comment on above: Performed By: #### C MP #### [facility] [address] [place] [address] Dr. Spring Nash AST [Catalytic activity/Vol] 20 U/L Normal 15-37 [facility] Comment on above: Performed By: #### C MP #### [facility] [address] [address] [address] Spring Nash Bilirubin [Mass/Vol] 0.2 mg/dL Normal 0.2-1.0 [facility] Comment on above: Performed By: #### C MP #### [facility] [address] [place] [address] Dr. Spring Nash Calcium [Mass/Vol] 8.2 mg/dL Critically low 8.5-10.1 [facility] Comment on above: Performed By: #### C MP #### [facility] [address] [place] [address] Dr. Spring Nash Chloride [Moles/Vol] 102 mmol/L Normal 98-107 [facility] Comment on above: Performed By: #### C MP #### [facility] [address] [place] [address] Dr. Spring Nash CO2 [Moles/Vol] 24.4 mmol/L Normal 21.0-32.0 [facility] Comment on above: Performed By: #### C MP #### [facility] [address] [place] [address] Dr. Spring Nash Creatinine [Mass/Vol] 1.96 mg/dL Critically high 0.70-1.30 [facility] Comment on above: Performed By: #### C MP #### [facility] [address] [place] [address] Dr. Spring Nash EGFR-AF BARBADIAN 44 mL/min/1.73m2 Critically low >=60 [facility] Comment on above: Performed By: #### C MP #### [facility] [address] [place] [address] Dr. Spring Nash EGFR-NON AF BARBADIAN 36 mL/min/1.73m2 Critically low >=60 [facility] Comment on above: Performed By: #### C MP #### [facility] [address] [address] [address] Spring Nash Globulin (S) [Mass/Vol] 3.5 g/dL Normal [facility] Comment on above: Performed By: #### C MP #### [facility] [address] [address] [address] Spring Nash Glucose [Mass/Vol] 196 mg/dL Critically high 74-106 [facility] Comment on above: Performed By: #### C MP #### [facility] [address] [place] [address] Dr. Spring Nash Potassium [Moles/Vol] 4.7 mmol/L Normal 3.5-5.1 [facility] Comment on above: Performed By: #### C MP #### [facility] [address] [place] [address] Dr. Spring Nash Protein [Mass/Vol] 6.0 g/dL Critically low 6.4-8.2 [facility] Comment on above: Performed By: #### C MP #### [facility] [address] [place] [address] Dr. Spring Nash Sodium [Moles/Vol] 134 mmol/L Critically low 136-145 [facility] Comment on above: Performed By: #### C MP #### [facility] [address] [place] [address] Dr. Spring Nash Urea nitrogen [Mass/Vol] 47.0 mg/dL Critically high 7.0-18.0 [facility] Comment on above: Performed By: #### C MP #### [facility] [address] [place] [address] Dr. Spring Nash Urea nitrogen/Creatinine [Mass ratio] 24.0 mg/mg Normal [facility] Comment on above: Performed By: #### C MP #### [facility] [address] [place] [address] Dr. Spring Nash CARDIAC EDWARD 3-6on 2 CK [Catalytic activity/Vol] 262 U/L Normal 39-308 [facility] Comment on above: Performed By: #### C MP, HSTROPN, BNP #### [facility] [address], [place] [address] Dr. Spring Nash CK.MB [Mass/Vol] 3.55 ng/mL Normal <=3.60 [facility] Comment on above: Performed By: #### C MP, HSTROPN, BNP #### [facility] [address], [place] [address] Dr. Spring Nash HSTROP 25.8 pg/mL Normal 4.0-76.1 [facility] Comment on above: Result Comment: CUT- OFF POINTS HAVE BEEN ESTABLISHED BASED ON THE FOURTH UNIVERSAL DEFINITIONS OF MYOCARDIAL INFARCTION. THE UPPER REFERENCE LIMIT (URL) OF TROPONIN, DEFINED THE 99TH PERCENTILE OF cTnI DISTRIBUTION IN A REFERENCE POPULATION, HAS BEEN CONFIRMED THE DECISION THRESHOLD FOR NM DIAGNOSIS. Performed By: #### C MP, HSTROPN, BNP #### [facility] [address] [address] [address] Spring Nash CTA CHEST WO W [...] artery calcifications. Central airway is patent. Developing [id number] bilateral pleural effusions occupying 20-30% of each [...] artifact and are not well evaluated. Developing [id number] bilateral pleural effusions occupying 20-30% of each [...] by: SHRUTI HANCOCK Date: 2022-10-02 22:48 Normal [facility] ECHO LIMITED STUDYon 022 ECHO LIMITED STUDY Patient: MELVI MINOR Exam Date: 10/03/2022 : 1970 Gender:M Ordering : DR KEVON CASTELLANO . Admission #: [id number] Family : DR FADI TENORIO D.O. Order #: [id number] CLICK HERE TO VIEW EXAM ECHOCARDIOGRAM REPORT [...] Lord M.D. on 10/03/2022 at 13:17 Normal [facility] GLUCOSE BLOODon 10-03-2022 Glucose [Mass/Vol] 551 mg/dL Critically high 74-106 [facility] Comment on above: Performed By: #### B MP #### [facility] [address] [address] [address] Spring Nash GLYCOHEMOGLOBIN A1Con 2021 ADA RECOMMENDATION SEE BELOW Normal [facility] Comment on above: Result Comment: ADA RECOMMENDED LIMIT 4.0 - 6.0 ADA THERAPEUTIC TARGET < 7.0 ACTION SUGGESTED > 7.0 Performed By: #### B MP #### [facility] [address] [address] [address] Spring Nash Glucose [Mass/Vol] 301 mg/dL Normal [facility] Comment on above: Performed By: #### B MP #### [facility] [address], [place] [address] Dr. Spring Nash HbA1c (Bld) [Mass fraction] 12.1 % Critically high 4.5-6.2 [facility] Comment on above: Performed By: #### B MP #### [facility] [address] [address] [address] Spring Nash POINT OF CARE GLUCOSEon 09-14 Glucose [Mass/Vol] 367 mg/dL Critically high [facility]106 [facility] Comment on above: Performed By: #### C SHAUN VERDE, BNP #### [facility] [address] [address] [address] Spring Nash Glucose [Mass/Vol] 215 mg/dL Critically high [facility]106 [facility] Comment on above: Performed By: #### C SHAUN VERDE, BNP #### [facility] [address] [address] [address] Spring Nash Glucose [Mass/Vol] 404 mg/dL Critically high [facility]106 [facility] Comment on above: Performed By: #### P OCGLUC #### [facility] [address] [address] [address] Spring Nash Glucose [Mass/Vol] 486 mg/dL Critically high [address] [place] [address] Comment on above: Performed By: #### P OCGLUC #### [facility] [address] [place] [address] Dr. Spring Nash Glucose [Mass/Vol] 542 mg/dL Critically high [address] [place] [address] Comment on above: Result Comment: Resu lt Not Confirmed Performed By: #### P OCGLUC #### [facility] [address] [place] [address] Dr. Spring Nash ACETONE SERUMon 10-02-2022 ACETONE Negative Normal NEGATIVE [facility] Comment on above: Performed By: #### P OCGLUC #### [facility] [address] [place] [address] Dr. Spring Nash BNPon 10-02-2022 Natriuretic peptide B (Bld) [Mass/Vol] 3142.0 pg/mL Critically high <=900.0 [facility] Comment on above: Performed By: #### P OCGLUC #### [facility] [address] [place] [address] Dr. Spring Nash CARDIAC EDWARD 3-6on 2 CK [Catalytic activity/Vol] 250 U/L Normal 39-308 [facility] Comment on above: Performed By: #### P OCGLUC #### [facility] [address] [place] [address] Dr. Spring Nash CK.MB [Mass/Vol] 3.41 ng/mL Normal <=3.60 [facility] Comment on above: Performed By: #### P OCGLUC #### [facility] [address] [place] [address] Dr. Spring Nash HSTROP 27.1 pg/mL Normal 4.0-76.1 [facility] Comment on above: Result Comment: CUT- OFF POINTS HAVE BEEN ESTABLISHED BASED ON THE FOURTH UNIVERSAL DEFINITIONS OF MYOCARDIAL INFARCTION. THE UPPER REFERENCE LIMIT (URL) OF TROPONIN, DEFINED THE 99TH PERCENTILE OF cTnI DISTRIBUTION IN A REFERENCE POPULATION, HAS BEEN CONFIRMED THE DECISION THRESHOLD FOR NM DIAGNOSIS. Performed By: #### P OCGLUC #### [facility] [address] [place] [address] Dr. Spring Nash CBC AUTO DIFFon 10-02-2022 BASO # 0.0 103/ul Normal 0.0-0.1 [facility] Comment on above: Performed By: #### C MP #### [facility] [address] [place] [address] Dr. Spring Nash Basophils/100 WBC (Bld) 0.2 % Normal 0.2-2.0 [facility] Comment on above: Performed By: #### C MP #### [facility] [address] [place] [address] Dr. Spring Nash EO # 0.4 103/ul Normal 0.0-0.7 [facility] Comment on above: Performed By: #### C MP #### [facility] [address] [place] [address] Dr. Spring Nash Eosinophils/100 WBC (Bld) 3.5 % Normal 0.9-7.0 [facility] Comment on above: Performed By: #### C MP #### [facility] [address] [address] [address] Spring Nash Erythrocyte distribution width (RBC) [Ratio] 13.0 % Normal 11.0-15.0 [facility] Comment on above: Performed By: #### C MP #### [facility] [address] [address] [address] Spring Nash Hematocrit (Bld) [Volume fraction] 34.2 % Critically low 42.0-54.0 [facility] Comment on above: Performed By: #### C MP #### [facility] [address] [place] [address] Dr. Spring Nash Hemoglobin (Bld) [Mass/Vol] 11.8 g/dL Critically low 14.0-18.0 [facility] Comment on above: Performed By: #### C MP #### [facility] [address] [place] [address] Dr. Spring Nash IG # 0.07 10e3/ul Critically high 0.00-0.03 [facility] Comment on above: Performed By: #### C MP #### [facility] [address] [place] [address] Dr. Spring Nash IG % 0.6 % Critically high 0.0-0.5 [facility] Comment on above: Performed By: #### C MP #### [facility] [address] [place] [address] Dr. Spring Nash LYMPH # 1.2 103/ul Normal 1.2-3.8 [facility] Comment on above: Performed By: #### C MP #### [facility] [address] [place] [address] Dr. Spring Nash Lymphocytes/100 WBC (Bld) 9.5 % Critically low 20.5-60.0 [facility] Comment on above: Performed By: #### C MP #### [facility] [address] [place] [address] Dr. Spring Nash MANUAL DIFF REQ NO Normal [facility] Comment on above: Performed By: #### C MP #### [facility] [address] [address] [address] Spring Nash MCH (RBC) [Entitic mass] 31.3 pg Normal 25.9-34.0 [facility] Comment on above: Performed By: #### C MP #### [facility] [address] [place] [address] Dr. Spring Nash MCHC (RBC) [Mass/Vol] 34.5 g/dL Normal 29.9-35.2 [facility] Comment on above: Performed By: #### C MP #### [facility] [address] [place] [address] Dr. Spring Nash MCV (RBC) [Entitic vol] 90.7 fL Normal 80.0-94.0 [facility] Comment on above: Performed By: #### C MP #### [facility] [address] [place] [address] Dr. Spring Nash MONO # 0.6 103/ul Normal 0.3-0.8 [facility] Comment on above: Performed By: #### C MP #### [facility] [address] [place] [address] Dr. Spring Nash Monocytes/100 WBC (Bld) 4.8 % Normal 1.7-12.0 [facility] Comment on above: Performed By: #### C MP #### [facility] [address] [place] [address] Dr. Spring Nash NEUT # 10.1 103/ul Critically high 1.4-6.5 [facility] Comment on above: Performed By: #### C MP #### [facility] [address] [place] [address] Dr. Spring Nash Neutrophils/100 WBC (Bld) 81.4 % Critically high 43.0-75.0 [facility] Comment on above: Performed By: #### C MP #### [facility] [address] [place] [address] Dr. Spring Nash Platelet mean volume (Bld) [Entitic vol] 12.5 fL Normal 9.5-13.5 [facility] Comment on above: Performed By: #### C MP #### [facility] [address] [address] [address] Spring Nash PLT 212 103/ul Normal 150-450 [facility] Comment on above: Performed By: #### C MP #### [facility] [address] [place] [address] Dr. Spring Nash RBC 3.77 106/ul Critically low 4.70-6.10 [facility] Comment on above: Performed By: #### C MP #### [facility] [address] [address] [address] Spring Nash WBC 12.4 103/ul Critically high 4.0-11.0 [facility] Comment on above: Performed By: #### C MP #### [facility] [address] [place] [address] Dr. Spring Nash CULTURE BLOODon 10-02-2022 Microscopic examination of blood, culture Culture Observations: NO GROWTH AT 5 DAYS. Normal [facility] Comment on above: Performed By: #### P OCGLUC #### [facility] [address] [place] [address] Dr. Spring Nash Microscopic examination of blood, culture Culture Observations: NO GROWTH AT 5 DAYS. Normal [facility] Comment on above: Performed By: #### P OCGLUC #### [facility] [address] [place] [address] Dr. Spring Nash [facility] SARS-CoV-2 (COVID-19) RNA HONEY+probe Ql (Unsp spec) Not detected Normal NOT DETECTED [facility] Comment on above: Result Comment: When [...] for this test is supported by the [employer] of Health and Human Service's declaration that [...] By: #### C MP, HSTROPN, BNP #### [facility] [address] [place] [address] Dr. Spring Nash INFLUENZA A AND B AGon 10-02 INFLUENZA A AG Negative Normal NEGATIVE SEE COMMENT [facility] Comment on above: Performed By: #### C MP, HSTROPN, BNP #### [facility] [address] [place] [address] Dr. Spring Nash INFLUENZA B AG Negative Normal NEGATIVE SEE COMMENT [facility] Comment on above: Performed By: #### C MP, HSTROPN, BNP #### [facility] [address] [place] [address] Dr. Spring Nash INTERNAL CONTROLS Within Normal Limits Normal Wi thin Normal Limits [facility] Comment on above: Performed By: #### C MP, HSTROPN, BNP #### [facility] [address] [place] [address] Dr. Spring Nash LACTATE/LACTIC ACIDon 2021 Lactate [Moles/Vol] 1.5 mmol/L Normal 0.4-1.9 [facility] Comment on above: Performed By: #### C MP, HSTROPN, BNP #### [facility] [address] [place] [address] Dr. Spring Nash PROF 14(COMP METB)on 022 Albumin [Mass/Vol] 2.7 g/dL Critically low 3.4-5.0 [facility] Comment on above: Performed By: #### P OCGLUC #### [facility] [address] [place] [address] Dr. Spring Nash Albumin/Globulin [Mass ratio] 0.7 {ratio} Normal [facility] Comment on above: Performed By: #### P OCGLUC #### [facility] [address] [address] [address] Spring Nash ALP [Catalytic activity/Vol] 169 U/L Critically high 46-116 [facility] Comment on above: Performed By: #### P OCGLUC #### [facility] [address] [address] [address] Spring Nash ALT [Catalytic activity/Vol] 13 U/L Critically low 16-63 [facility] Comment on above: Performed By: #### P OCGLUC #### [facility] [address] [address] [address] Spring Nash Anion gap [Moles/Vol] 13.7 mmol/L Normal [facility] Comment on above: Performed By: #### P OCGLUC #### [facility] [address] [address] [address] Spring Nash AST [Catalytic activity/Vol] 24 U/L Normal 15-37 [facility] Comment on above: Performed By: #### P OCGLUC #### [facility] [address] [address] [address] Spring Nash Bilirubin [Mass/Vol] 0.6 mg/dL Normal 0.2-1.0 [facility] Comment on above: Performed By: #### P OCGLUC #### [facility] [address] [address] [address] Spring Nash Calcium [Mass/Vol] 8.1 mg/dL Critically low 8.5-10.1 [facility] Comment on above: Performed By: #### P OCGLUC #### [facility] [address] [address] [address] Spring Nash Chloride [Moles/Vol] 102 mmol/L Normal 98-107 [facility] Comment on above: Performed By: #### P OCGLUC #### [facility] [address] [address] [address] Spring Nash CO2 [Moles/Vol] 25.1 mmol/L Normal 21.0-32.0 [facility] Comment on above: Performed By: #### P OCGLUC #### [facility] [address] [address] [address] Spring Nash Creatinine [Mass/Vol] 1.55 mg/dL Critically high 0.70-1.30 [facility] Comment on above: Performed By: #### P OCGLUC #### [facility] [address] [address] [address] Spring Nash EGFR-AF BARBADIAN 58 mL/min/1.73m2 Critically low >=60 [facility] Comment on above: Performed By: #### P OCGLUC #### [facility] [address] [address] [address] Spring Nash EGFR-NON AF BARBADIAN 48 mL/min/1.73m2 Critically low >=60 [facility] Comment on above: Performed By: #### P OCGLUC #### [facility] [address] [address] [address] Spring Nash Globulin (S) [Mass/Vol] 4.1 g/dL Normal [facility] Comment on above: Performed By: #### P OCGLUC #### [facility] [address] [address] [address] Spring Nash Glucose [Mass/Vol] 421 mg/dL Critically high 74-106 [facility] Comment on above: Performed By: #### P OCGLUC #### [facility] [address] [address] [address] Spring Nash Potassium [Moles/Vol] 4.8 mmol/L Normal 3.5-5.1 [facility] Comment on above: Performed By: #### P OCGLUC #### [facility] [address] [address] [address] Spring Nash Protein [Mass/Vol] 6.8 g/dL Normal 6.4-8.2 [facility] Comment on above: Performed By: #### P OCGLUC #### [facility] [address] [address] [address] Spring Nash Sodium [Moles/Vol] 136 mmol/L Normal 136-145 [facility] Comment on above: Performed By: #### P OCGLUC #### [facility] [address] [place] [address] Dr. Spring Nash Urea nitrogen [Mass/Vol] 29.0 mg/dL Critically high 7.0-18.0 [facility] Comment on above: Performed By: #### P OCGLUC #### [facility] [address] [place] [address] Dr. Spring Nash Urea nitrogen/Creatinine [Mass ratio] 18.7 mg/mg Normal [facility] Comment on above: Performed By: #### P OCGLUC #### [facility] [facility] [address] [place] [address] Dr. Spring Nash PROTIMEon 10-02-2022 INR Coag (PPP) [Relative time] {INR} Normal [facility] Comment on above: Performed By: #### P OCGLUC #### [facility] [address] [place] [address] Dr. Spring Nash INR GUIDELINES SEE BELOW Normal [facility] Comment on above: Result Comment: SHAWN RED INR: 2.0 - 3.0 CONDITIONS NOT LISTED BELOW 2.5 - 3.5 FOR PROSTHETIC HEART VALVE REPLACEMENT 2.5 - 3.5 RECURRENT THROMBOSIS Performed By: #### P OCGLUC #### [facility] [address] [place] [address] Dr. Spring Nash PT Coag (PPP) [Time] 9.8 s Normal 9.0-11.6 [facility] Comment on above: Performed By: #### P OCGLUC #### [facility] [address] [place] [address] Dr. Spring Nash PTTon 10-02-2022 aPTT Coag (Bld) [Time] 25.9 s Normal 22.3-36.2 [facility] Comment on above: Performed By: #### P OCGLUC #### [facility] [address] [place] [address] Dr. Spring Nsah TROPONIN, HIGH SENSITIVITYon 10-02-2022 HSTROP 29.9 pg/mL Normal 4.0-76.1 [facility] Comment on above: Result Comment: CUT- OFF POINTS HAVE BEEN ESTABLISHED BASED ON THE FOURTH UNIVERSAL DEFINITIONS OF MYOCARDIAL INFARCTION. THE UPPER REFERENCE LIMIT (URL) OF TROPONIN, DEFINED THE 99TH PERCENTILE OF cTnI DISTRIBUTION IN A REFERENCE POPULATION, HAS BEEN CONFIRMED THE DECISION THRESHOLD FOR NM DIAGNOSIS. Performed By: #### P OCGLUC #### [facility] [address] [place] [address] Dr. Spring Nash TSHon 10-02-2022 TSH 2.707 uIU/mL Normal 0.358-3.74 0 [facility] Comment on above: Performed By: #### P OCGLUC #### [facility] [address] [place] [address] Dr. Spring Nash CBC AUTO DIFFon 07-31-2022 BASO # 0.0 103/ul Normal 0.0-0.1 [facility] Comment on above: Performed By: #### C MP, HSTROPN, BNP #### [facility] [address] [place] [address] Dr. Srping Nash Basophils/100 WBC (Bld) 0.5 % Normal 0.2-2.0 [facility] Comment on above: Performed By: #### C MP, HSTROPN, BNP #### [facility] [address] [place] [address] Dr. Spring Nash EO # 0.3 103/ul Normal 0.0-0.7 [facility] Comment on above: Performed By: #### C MP, HSTROPN, BNP #### [facility] [address] [place] [address] Dr. Spring Nash Eosinophils/100 WBC (Bld) 4.0 % Normal 0.9-7.0 [facility] Comment on above: Performed By: #### C MP, HSTROPN, BNP #### [facility] [address] [place] [address] Dr. Spring Nash Erythrocyte distribution width (RBC) [Ratio] 12.1 % Normal 11.0-15.0 [facility] Comment on above: Performed By: #### C MP, HSTROPN, BNP #### [facility] [address] [place] [address] Dr. Spring Nash Hematocrit (Bld) [Volume fraction] 37.4 % Critically low 42.0-54.0 [facility] Comment on above: Performed By: #### C MP, HSTROPN, BNP #### [facility] [address] [place] [address] Dr. Spring Nash Hemoglobin (Bld) [Mass/Vol] 12.9 g/dL Critically low 14.0-18.0 [facility] Comment on above: Performed By: #### C MP, HSTROPN, BNP #### [facility] [address] [place] [address] Dr. Spring Nash IG # 0.04 10e3/ul Critically high 0.00-0.03 [facility] Comment on above: Performed By: #### C MP, HSTROPN, BNP #### [facility] [address] [place] [address] Dr. Spring Nash IG % 0.5 % Normal 0.0-0.5 [facility] Comment on above: Performed By: #### C MP, HSTROPN, BNP #### [facility] [address] [place] [address] Dr. Spring Nash LYMPH # 1.7 103/ul Normal 1.2-3.8 [facility] Comment on above: Performed By: #### C MP, HSTROPN, BNP #### [facility] [address] [place] [address] Dr. Spring Nash Lymphocytes/100 WBC (Bld) 21.1 % Normal 20.5-60.0 [facility] Comment on above: Performed By: #### C MP, HSTROPN, BNP #### [facility] [address] [place] [address] Dr. Spring Nash MANUAL DIFF REQ NO Normal [facility] Comment on above: Performed By: #### C MP, HSTROPN, BNP #### [facility] [address] [place] [address] Dr. Spring Nash MCH (RBC) [Entitic mass] 31.0 pg Normal 25.9-34.0 [facility] Comment on above: Performed By: #### C MP, HSTROPN, BNP #### [facility] [address] [place] [address] Dr. Spring Nash MCHC (RBC) [Mass/Vol] 34.5 g/dL Normal 29.9-35.2 [facility] Comment on above: Performed By: #### C MP, HSTROPN, BNP #### [facility] [address] [place] [address] Dr. Spring Nash MCV (RBC) [Entitic vol] 89.9 fL Normal 80.0-94.0 [facility] Comment on above: Performed By: #### C MP, HSTROPN, BNP #### [facility] [address] [place] [address] Dr. Spring Nash MONO # 0.6 103/ul Normal 0.3-0.8 [facility] Comment on above: Performed By: #### C MP, HSTROPN, BNP #### [facility] [address] [place] [address] Dr. Spring Nash Monocytes/100 WBC (Bld) 7.9 % Normal 1.7-12.0 [facility] Comment on above: Performed By: #### C MP, HSTROPN, BNP #### [facility] [address] [place] [address] Dr. Spring Nash NEUT # 5.2 103/ul Normal 1.4-6.5 [facility] Comment on above: Performed By: #### C MP, HSTROPN, BNP #### [facility] [address] [place] [address] Dr. Spring Nash Neutrophils/100 WBC (Bld) 66.0 % Normal 43.0-75.0 [facility] Comment on above: Performed By: #### C MP, HSTROPN, BNP #### [facility] [address] [place] [address] Dr. Spring Nash Platelet mean volume (Bld) [Entitic vol] 11.5 fL Normal 9.5-13.5 [facility] Comment on above: Performed By: #### C MP, HSTROPN, BNP #### [facility] [address], [place] [address] Dr. Spring Nash PLT 220 103/ul Normal 150-450 [facility] Comment on above: Performed By: #### C MP, HSTROPN, BNP #### [facility] [address], [place] [address] Dr. Spring Nash RBC 4.16 106/ul Critically low 4.70-6.10 [facility] Comment on above: Performed By: #### C MP, HSTROPN, BNP #### [facility] [address], [place] [address] Dr. Spring Nash WBC 7.8 103/ul Normal 4.0-11.0 [facility] Comment on above: Performed By: #### C MP, HSTROPN, BNP #### [facility] [address], [place] [address] STROKE HEAD WOon [...] LISA DURAN Date: 2022-07-31 21:18 Normal [facility] Covid-19 PCR (CVDTB)on 07-14 SARS-CoV-2 (COVID-19) RNA HONEY+probe Ql (Unsp spec) Not detected Normal NOT DETECTED [facility] Comment on above: Result Comment: When [...] for this test is supported by the [place] of Health and Human Service's declaration that [...] By: #### C MP, HSTROPN, BNP #### [facility] [address] [place] [address] Dr. Spring Nash PROF 14(COMP METB)on 022 Albumin [Mass/Vol] 3.1 g/dL Critically low 3.4-5.0 [facility] Comment on above: Performed By: #### P OCGLUC #### [facility] [address] [place] [address] Dr. Spring Nash Albumin/Globulin [Mass ratio] 0.9 {ratio} Normal [facility] Comment on above: Performed By: #### P OCGLUC #### [facility] [address] [place] [address] Dr. Spring Nash ALP [Catalytic activity/Vol] 124 U/L Critically high 46-116 [facility] Comment on above: Performed By: #### P OCGLUC #### [facility] [address] [place] [address] Dr. Spring Nash ALT [Catalytic activity/Vol] 18 U/L Normal 16-63 [facility] Comment on above: Performed By: #### P OCGLUC #### [facility] [address] [address] [address] Spring Nash Anion gap [Moles/Vol] 9.1 mmol/L Normal [facility] Comment on above: Performed By: #### P OCGLUC #### [facility] [address] [address] [address] Spring Nash AST [Catalytic activity/Vol] 11 U/L Critically low 15-37 [facility] Comment on above: Performed By: #### P OCGLUC #### [facility] [address] [address] [address] Spring Nash Bilirubin [Mass/Vol] 0.3 mg/dL Normal 0.2-1.0 [facility] Comment on above: Performed By: #### P OCGLUC #### [facility] [address] [address] [address] Spring Nash Calcium [Mass/Vol] 8.9 mg/dL Normal 8.5-10.1 [facility] Comment on above: Performed By: #### P OCGLUC #### [facility] [address] [address] [address] Spring Nash Chloride [Moles/Vol] 102 mmol/L Normal 98-107 [facility] Comment on above: Performed By: #### P OCGLUC #### [facility] [address] [address] [address] Spring Nash CO2 [Moles/Vol] 31.1 mmol/L Normal 21.0-32.0 [facility] Comment on above: Performed By: #### P OCGLUC #### [facility] [address] [address] [address] Spring Nash Creatinine [Mass/Vol] 1.58 mg/dL Critically high 0.70-1.30 [facility] Comment on above: Performed By: #### P OCGLUC #### [facility] [address] [address] [address] Spring Nash EGFR-AF BARBADIAN 56 mL/min/1.73m2 Critically low >=60 [facility] Comment on above: Performed By: #### P OCGLUC #### [facility] [address] [address] [address] Spring Nash EGFR-NON AF BARBADIAN 46 mL/min/1.73m2 Critically low >=60 [facility] Comment on above: Performed By: #### P OCGLUC #### [facility] [address] [address] [address] Spring Nash Globulin (S) [Mass/Vol] 3.4 g/dL Normal [facility] Comment on above: Performed By: #### P OCGLUC #### [facility] [address] [address] [address] Spring Nash Glucose [Mass/Vol] 218 mg/dL Critically high 74-106 [facility] Comment on above: Performed By: #### P OCGLUC #### [facility] [address] [address] [address] Spring Nash Potassium [Moles/Vol] 4.2 mmol/L Normal 3.5-5.1 [facility] Comment on above: Performed By: #### P OCGLUC #### [facility] [address] [address] [address] Spring Nash Protein [Mass/Vol] 6.5 g/dL Normal 6.4-8.2 [facility] Comment on above: Performed By: #### P OCGLUC #### [facility] [address] [address] [address] Spring Nash Sodium [Moles/Vol] 138 mmol/L Normal 136-145 [facility] Comment on above: Performed By: #### P OCGLUC #### [facility] [address] [address] [address] Spring Nash Urea nitrogen [Mass/Vol] 22.0 mg/dL Critically high 7.0-18.0 [facility] Comment on above: Performed By: #### P OCGLUC #### [facility] [address] [address] [address] Spring Nash Urea nitrogen/Creatinine [Mass ratio] 13.9 mg/mg Normal [facility] Comment on above: Performed By: #### P OCGLUC #### [facility] [address] [address] [address] Spring Nash PROTIMEon 07-31-2022 INR Coag (PPP) [Relative time] {INR} Normal [facility] Comment on above: Performed By: #### C MP #### [facility] [address] [place] [address] Dr. Spring Nash INR GUIDELINES SEE BELOW Normal [facility] Comment on above: Result Comment: SHAWN RED INR: 2.0 - 3.0 CONDITIONS NOT LISTED BELOW 2.5 - 3.5 FOR PROSTHETIC HEART VALVE REPLACEMENT 2.5 - 3.5 RECURRENT THROMBOSIS Performed By: #### C MP #### [facility] [address] [address] [address] Spring Nash PT Coag (PPP) [Time] 9.7 s Normal 9.0-11.6 [facility] Comment on above: Performed By: #### C MP #### [facility] [address] [place] [address] Dr. Spring Nash PTTon 07-31-2022 aPTT Coag (Bld) [Time] 23.0 s Normal 22.3-36.2 [facility] Comment on above: Performed By: #### C MP #### [facility] [address] [place] [address] Dr. Spring Nash TROPONIN, HIGH SENSITIVITYon 07-31-2022 HSTROP 36.6 pg/mL Normal 4.0-76.1 [facility] Comment on above: Result Comment: CUT- OFF POINTS HAVE BEEN ESTABLISHED BASED ON THE FOURTH UNIVERSAL DEFINITIONS OF MYOCARDIAL INFARCTION. THE UPPER REFERENCE LIMIT (URL) OF TROPONIN, DEFINED THE 99TH PERCENTILE OF cTnI DISTRIBUTION IN A REFERENCE POPULATION, HAS BEEN CONFIRMED THE DECISION THRESHOLD FOR NM DIAGNOSIS. Performed By: #### P OCGLUC #### [facility] [address] [address] [address] Spring Nash TSHon 07-31-2022 TSH 2.334 uIU/mL Normal 0.358-3.74 0 [facility] Comment on above: Performed By: #### P OCGLUC #### [facility] [address] [place] [address] Dr. Spring Nash XR CHEST 1 Von [...] by: CLIVE HOLLAND Date: 2022-07-31 20:54 Normal [facility] A1C HEMOGLOBINon 05-16-2022 HbA1c (Bld) [Mass fraction] 8.6 % [employer] Other Glucose - FINGER STICKon Glucose [Mass/Vol] 109 mg/dL [employer] Other HbA1c (Bld) [Mass fraction]o n 05-16-2022 A1C HEMOGLOBIN [facility] [employer] Other Basophils Auto (Bld) [#/Vol] Ordered By: Suzan Bennett on 04-21-2022 Basophils (Bld) [#/Vol] 0.1 10*3/uL 0.0-0.2 [facility] Basophils/100 WBC Auto (Bld) Ordered By: Suzan Bennett on 04-21-2022 Basophils/100 WBC (Bld) 0.6 % [facility] Blood hemoglobin measurement (mass/volume)Ordered By: Suzan Bennett on 04-21-2022 Hemoglobin (Bld) [Mass/Vol] 11.7 g/dL 13.0-17.0 [facility] Blood leukocytes automated c ount (number/volume)Ordered By: Suzan Bennett on 04-21-2022 WBC (Bld) [#/Vol] 9.0 10*3/uL 4.5-11.0 [facility] Creatinine and Glomerular fi ltration rate.predicted panel (S/P/Bld)Ordered By: Suzan Bennett on 04-21-2022 Creatinine [Mass/Vol] 1.75 mg/dL 0.64-1.27 [facility] Eosinophils Auto (Bld) [#/Vo l]Ordered By: Suzan Bennett on 04-21-2022 Eosinophils (Bld) [#/Vol] 0.3 10*3/uL 0.0-0.45 [facility] Eosinophils/100 WBC Auto (Bl d)Ordered By: Suzan Bennett on 04-21-2022 Eosinophils/100 WBC (Bld) 3.0 % [facility] Erythrocyte distribution wid th Auto (RBC) [Ratio]Ordered By: Suzan Bennett on 04-21-2022 Erythrocyte distribution width (RBC) [Ratio] 13.2 % 12.0-14.8 [facility] Estimated glomerular filtrat ion rate (GFR) non- AmericanOrdered By: Suzan Bennett on 04-21-2022 GFR/1.73 sq M.predicted among non-blacks MDRD (S/P/Bld) [Vol rate/Area] 41 mL/Min [facility] Hematocrit Auto (Bld) [Volum e fraction]Ordered By: Suzan Bennett on 04-21-2022 Hematocrit (Bld) [Volume fraction] 34.0 % 38.8-50.0 [facility] - Chemistry and C hemistry - challengeOrdered By: Sinan Holly on 04-21-2022 Natriuretic peptide B (Bld) [Mass/Vol] 51.0 pg/mL 5-100 [facility] - Hematology and Cell countsOrdered By: Suzan Bennett on 04-21-2022 Nucleated RBC/100 WBC (Bld) [Ratio] 0.0 % 0-0.5 [facility] Lymphocytes Auto (Bld) [#/Vo l]Ordered By: Suzan Bennett on 04-21-2022 Lymphocytes (Bld) [#/Vol] 1.6 10*3/uL 1.00-4.8 [facility] Lymphocytes/100 WBC Auto (Bl d)Ordered By: Suzan Bennett on 04-21-2022 Lymphocytes/100 WBC (Bld) 17.4 % [facility] MCH Auto (RBC) [Entitic mass ]Ordered By: Suzan Bennett on 04-21-2022 MCH (RBC) [Entitic mass] 31.2 pg 27.5-35.2 [facility] MCHC Auto (RBC) [Mass/Vol]Or dered By: Suzan Bennett on 04-21-2022 MCHC (RBC) [Mass/Vol] 34.3 g/dL 32.5-35.6 [facility] MCV Auto (RBC) [Entitic vol] Ordered By: Suzan Bennett on 04-21-2022 MCV (RBC) [Entitic vol] 90.8 fL 83.5-101 [facility] Monocytes Auto (Bld) [#/Vol] Ordered By: Suzan Bennett on 04-21-2022 Monocytes (Bld) [#/Vol] 0.6 10*3/uL 0.0-0.8 [facility] Monocytes/100 WBC Auto (Bld) Ordered By: Suzan Bennett on 04-21-2022 Monocytes/100 WBC (Bld) 6.9 % [facility] Neutrophils Auto (Bld) [#/Vo l]Ordered By: Suzan Bennett on 04-21-2022 Neutrophils (Bld) [#/Vol] 6.5 10*3/uL 1.8-7.7 [facility] Neutrophils/100 WBC Auto (Bl d)Ordered By: Suzan Bennett on 04-21-2022 Neutrophils/100 WBC (Bld) 72.1 % [facility] No Panel InformationOrdered By: Suzan Bennett on 04-21-2022 Estimated GFR () 50 mL/Min [facility] Comment on above: GFR estimated refere nce range: According to KDOQI guidelines, <60 ml/min/1.73m2 is sufficient to diagnose a patient with chronic kidney disease. Pharmacy Creatinine Clearance (Chem 57.15 [facility] Platelet mean volume Auto (B ld) [Entitic vol]Ordered By: Suzan Bennett on 04-21-2022 Platelet mean volume (Bld) [Entitic vol] 9.9 fL 6.6-10.1 [facility] Platelets Auto (Bld) [#/Vol] Ordered By: Suzan Bennett on 04-21-2022 Platelets (Bld) [#/Vol] 202 10*3/uL 150-450 [facility] RBC Auto (Bld) [#/Vol]Ordere d By: Suzan Bennett on 04-21-2022 RBC (Bld) [#/Vol] 3.75 10*6/uL 3.90-5.60 [facility] Serum or plasma calcium regi urement (mass/volume)Ordered By: Suzan Bennett on 04-21-2022 Calcium [Mass/Vol] 9.0 mg/dL 8.2-10.2 [facility] Serum or plasma chloride taryn surement (moles/volume)Ordered By: Suzan Bennett on 04-21-2022 Chloride [Moles/Vol] 99 mmol/L 95-114 [facility] Serum or plasma glucose regi urement (mass/volume)Ordered By: Suzan Bennett on 04-21-2022 Glucose [Mass/Vol] 215 mg/dL 70-100 [facility] Comment on above: ADA recommended refe rence range Random Glucose Reference Range is dependent on time and content of last meal. Glucose of more than 200 mg/dL in a nonstressed, ambulatory subject supports the diagnosis of Diabetes Mellitus. Serum or plasma potassium me asurement (moles/volume)Ordered By: Suzan Bennett on 04-21-2022 Potassium [Moles/Vol] 4.5 mmol/L 3.5-5.1 [facility] Serum or plasma sodium measu rement (moles/volume)Ordered By: Suzan Bennett on 04-21-2022 Sodium [Moles/Vol] 138 mmol/L 136-146 [facility] Serum or plasma total carbon dioxide measurement (moles/volume)Ordered By: Suzan Bennett on 04-21-2022 CO2 [Moles/Vol] 28.5 mmol/L 22.0-30.0 [facility] Serum or plasma urea nitroge n measurement (mass/volume)Ordered By: Suzan Bennett on 04-21-2022 Urea nitrogen [Mass/Vol] 42 mg/dL 9-23 [facility] Troponin I.cardiac [Mass/vol ume] in Serum or Plasma by High sensitivity methodOrdered By: Sinan Holly on 04-21-2022 Troponin I.cardiac High sensitivity method [Mass/Vol] 18 pg/mL 0-20 [facility] INTRAVITREAL INJECTION, PHAR MACOLOGIC AGENT - [...] and verbal post procedure care education. Notes [id number] [facility] Radiology Study observation (narrative) [facility] OCT, RETINA - OU - BOTH EYES on 03-21-2022 [facility] Radiology Study observation (narrative) [facility] Office Visit (Cardiology)on 03-07-2022 Follow-up visit Diagnoses/Problems [...] in adult Healthy Weight Tips; Status:Complete; Done: [id number] Hypertension, Ischemic cardiomyopathy Renew: Bumetanide 1 MG [...] we can help. You may also call [phone] TechnologiesNOW for free resources and assistance.; Status:Complete; Done: [id number] Tobacco Use Screening; Status:Complete; Done: [id number] Unlinked Stop: Potassium Chloride Rai ER 20 MEQ Oral Tablet Extended Release [...] contact the office if new symptoms arise. ANALYTICAL ENGINEER in 2 months Encourage healthy lifestyle choices [...] Isosorbide Mon (more content not included)... Normal 1stdibs Tobacco Screening.on 022 Fall risk assessment a) No falls within the last year [facility] NafhamSandusk y 250 DO Work Phone: Tobacco use status CPHS a) Yes [facility] Springest-Sandusk y 250 DO Work Phone: Tobacco Screening. Yes MP-Esthela [facility] Heart-Tobias y 250 DO Work Phone: [...] contact the office if new symptoms arise. ANALYTICAL ENGINEER in 2 weeks Encourage healthy lifestyle choices [...] DAILY NEEDED. (more content not included)... Normal 1stdibs Tobacco Screening.on 022 Adult depression screening assessment No [facility] Heart-Kathyusk y 250 DO Work Phone: Adult depression screening assessment Yes [facility] Heart-Tobias y 250 DO Work Phone: Fall risk assessment b) One or more fall s in the last year [facility] Heart-Tobias y 250 DO Work Phone: Tobacco use status CP a) Yes [facility] Heart-Tobias y 250 DO Work Phone: Tobacco Screening. Yes [facility] Heart-Tobias y 250 DO Work Phone: Tobacco Screening. 1-Several days [facility]-Tobias y 250 DO Work Phone: Tobacco Screening. 0-Not at all [facility] Heart-Tobias y 250 DO Work Phone: Tobacco Screening. 2-More than half the days [facility] Heart-Tobias y 250 DO Work Phone: Tobacco Screening. Somewhat Difficult [facility] Heart-Tobias y 250 DO Work Phone: Glucose - FINGER STICKon Glucose [Mass/Vol] 194 mg/dL [facility] [employer] Other Tobacco Screening.on 022 Adult depression screening assessment No [facility] Heart-Kathyusk y 250 DO Work Phone: Adult depression screening assessment Yes [facility] Heart-Tobias y 250 DO Work Phone: Tobacco use status CPHS a) Yes M -[facility] [place] Heart[facility] y 250 DO Work Phone: Tobacco Screening. Yes -[facility] Heart-Tobias y 250 DO Work Phone: Tobacco Screening. 3-Nearly every day [facility] Ward burleson 250 DO Work Phone: Tobacco Screening. 0-Not at all [facility] HeartBertha y 250 DO Work Phone: Tobacco Screening. 2-More than half the days [facility] Ward burleson 250 DO Work Phone: Tobacco Screening. 1-Several days [facility] burleson 250 DO Work Phone: Tobacco Screening. Very Difficult [facility] burleson 250 DO Work Phone: Basophils Auto (Bld) [#/Vol] Ordered By: Jonn Wallace on 01-12-2022 Basophils (Bld) [#/Vol] 0.0 10*3/uL 0.0-0.2 [facility] Basophils/100 WBC Auto (Bld) Ordered By: Jonn Wallace on 01-12-2022 Basophils/100 WBC (Bld) 0.6 % [facility] Blood hemoglobin measurement (mass/volume)Ordered By: Jonn Wallace on 01-12-2022 Hemoglobin (Bld) [Mass/Vol] 11.5 g/dL 13.0-17.0 [facility] Blood leukocytes automated c ount (number/volume)Ordered By: Jonn Wallace on 01-12-2022 WBC (Bld) [#/Vol] 8.4 10*3/uL 4.5-11.0 [facility] Creatinine and Glomerular fi ltration rate.predicted panel (S/P/Bld)Ordered By: Jonn Wallace on 01-12-2022 Creatinine [Mass/Vol] 1.21 mg/dL 0.64-1.27 [facility] Eosinophils Auto (Bld) [#/Vo l]Ordered By: Jonn Wallace on 01-12-2022 Eosinophils (Bld) [#/Vol] 0.5 10*3/uL 0.0-0.45 [facility] Eosinophils/100 WBC Auto (Bl d)Ordered By: Jonn Wallace on 01-12-2022 Eosinophils/100 WBC (Bld) 6.3 % [facility] Erythrocyte distribution wid th Auto (RBC) [Ratio]Ordered By: Jonn Wallace on 01-12-2022 Erythrocyte distribution width (RBC) [Ratio] 14.2 % 12.0-14.8 [facility] Estimated glomerular filtrat ion rate (GFR) non- AmericanOrdered By: Jonn Wallace on 01-12-2022 GFR/1.73 sq M.predicted among non-blacks MDRD (S/P/Bld) [Vol rate/Area] > 60 mL/Min [facility] Glucose Glucometer (BldC) [M ass/Vol]Ordered By: Jonn Wallace on 01-12-2022 Glucose [Mass/Vol] 161 mg/dL [facility] Comment on above: Random Glucose Refer ence Range is dependent on time and content of last meal. Glucose of more than 200 mg/dL in a nonstressed, ambulatory subject supports the diagnosis of Diabetes Mellitus. Hematocrit Auto (Bld) [Volum e fraction]Ordered By: Jonn Wallace on 01-12-2022 Hematocrit (Bld) [Volume fraction] 34.0 % 38.8-50.0 [facility] - Chemistry and C hemistry - challengeOrdered By: Jonn Wallace on 01-12-2022 Magnesium [Mass/Vol] 1.9 mg/dL 1.6-2.6 [facility] Laboratory - Hematology and Cell countsOrdered By: Jonn Wallace on 01-12-2022 Nucleated RBC/100 WBC (Bld) [Ratio] 0.1 % 0-0.5 [facility] Lymphocytes Auto (Bld) [#/Vo l]Ordered By: Jonn Wallace on 01-12-2022 Lymphocytes (Bld) [#/Vol] 1.6 10*3/uL 1.00-4.8 [facility] Lymphocytes/100 WBC Auto (Bl d)Ordered By: Jonn Wallace on 01-12-2022 Lymphocytes/100 WBC (Bld) 19.6 % [facility] MCH Auto (RBC) [Entitic mass ]Ordered By: Jonn Wallace on 01-12-2022 MCH (RBC) [Entitic mass] 30.9 pg 27.5-35.2 [facility] MCHC Auto (RBC) [Mass/Vol]Or dered By: Jonn Wallace on 01-12-2022 MCHC (RBC) [Mass/Vol] 33.9 g/dL 32.5-35.6 [facility] MCV Auto (RBC) [Entitic vol] Ordered By: Jonn Wallace on 01-12-2022 MCV (RBC) [Entitic vol] 91.2 fL 83.5-101 [facility] Monocytes Auto (Bld) [#/Vol] Ordered By: Jonn Wallace on 01-12-2022 Monocytes (Bld) [#/Vol] 0.6 10*3/uL 0.0-0.8 [facility] Monocytes/100 WBC Auto (Bld) Ordered By: Jnon Wallace on 01-12-2022 Monocytes/100 WBC (Bld) 7.2 % [facility] Neutrophils Auto (Bld) [#/Vo l]Ordered By: Jonn Wallace on 01-12-2022 Neutrophils (Bld) [#/Vol] 5.5 10*3/uL 1.8-7.7 [facility] Neutrophils/100 WBC Auto (Bl d)Ordered By: Jonn Wallace on 01-12-2022 Neutrophils/100 WBC (Bld) 66.3 % [facility] No Panel InformationOrdered By: Jonn Wallace on 01-12-2022 Estimated GFR () > 60 mL/Min [facility] Comment on above: GFR estimated refere nce range: According to KDOQI guidelines, <60 ml/min/1.73m2 is sufficient to diagnose a patient with chronic kidney disease. Pharmacy Creatinine Clearance (Chem 82.85 [facility] Platelet mean volume Auto (B ld) [Entitic vol]Ordered By: Jonn Wallace on 01-12-2022 Platelet mean volume (Bld) [Entitic vol] 9.8 fL 6.6-10.1 [facility] Platelets Auto (Bld) [#/Vol] Ordered By: Jonn Wallace on 01-12-2022 Platelets (Bld) [#/Vol] 202 10*3/uL 150-450 [facility] RBC Auto (Bld) [#/Vol]Ordere d By: Jonn Wallace on 01-12-2022 RBC (Bld) [#/Vol] 3.73 10*6/uL 3.90-5.60 [facility] Serum or plasma calcium regi urement (mass/volume)Ordered By: Jonn Wallace on 01-12-2022 Calcium [Mass/Vol] 8.8 mg/dL 8.2-10.2 [facility] Serum or plasma chloride taryn surement (moles/volume)Ordered By: Jonn Wallace on 01-12-2022 Chloride [Moles/Vol] 103 mmol/L 95-114 [facility] Serum or plasma glucose regi urement (mass/volume)Ordered By: Jonn Wallace on 01-12-2022 Glucose [Mass/Vol] 69 mg/dL 70-100 [facility] Comment on above: Delta: 314 on -0510ADA recommended reference rangeRandom Glucose Reference Range is dependent on time and content of last meal. Glucose of more than 200 mg/dL in a nonstressed, ambulatory subject supports the diagnosis of Diabetes Mellitus. Serum or plasma potassium me asurement (moles/volume)Ordered By: Jonn Wallace on 01-12-2022 Potassium [Moles/Vol] 4.2 mmol/L 3.5-5.1 [facility] Serum or plasma sodium measu rement (moles/volume)Ordered By: Jonn Wallace on 01-12-2022 Sodium [Moles/Vol] 137 mmol/L 136-146 [facility] Serum or plasma total carbon dioxide measurement (moles/volume)Ordered By: Jonn Wallace on 01-12-2022 CO2 [Moles/Vol] 26.2 mmol/L 22.0-30.0 [facility] Serum or plasma urea nitroge n measurement (mass/volume)Ordered By: Jonn Wallace on 01-12-2022 Urea nitrogen [Mass/Vol] 26 mg/dL 9- [facility] Activated partial thrombopla stin time (aPTT) in platelet poor plasma by coagulation aOrdered By: Jonn Wallace on 01-11-2022 aPTT Coag (PPP) [Time] 27.5 s 25.1-36.5 [facility] Albumin [Mass/volume] in Ser um or PlasmaOrdered By: Jonn Wallace on 01-11-2022 Albumin [Mass/Vol] 2.7 g/dL 3.2-5.5 [facility] Cholesterol [Mass/volume] in Serum or PlasmaOrdered By: Jonn Wallace on 01-11-2022 Cholesterol [Mass/Vol] 182 mg/dL 140-200 [facility] Comment on above: Chol less than 200 m g/dl low riskChol 201-239 mg/dl borderline riskChol 240 mg/dl and greater high risk Cholesterol in LDL Calc [Mas s/Vol]Ordered By: Jonn Wallace on 01-11-2022 Cholesterol in LDL [Mass/Vol] 114 mg/dL 0-100 [facility] Comment on above: LDL ATP III CLASSIFI CATIONLDL less than 100 mg/dL OptimalLDL 100-129 mg/dL Near or above optimalLDL 130-159 mg/dL Borderline highLDL 160-189 mg/dL HighLDL greater than 189 mg/dL Very high Cholesterol in VLDL Calc [Ma ss/Vol]Ordered By: Jonn Wallace on 01-11-2022 Cholesterol in VLDL [Mass/Vol] 38 mg/dL [facility] Globulin Calc (S) [Mass/Vol] Ordered By: Jonn Wallace on 01-11-2022 Globulin (S) [Mass/Vol] 2.4 g/dL [facility] Laboratory - CoagulationOrde red By: Jonn Wallace on 01-11-2022 PT Coag (PPP) [Time] 10.1 s 9.0-12.9 [facility] No Panel InformationOrdered By: Jonn Wallace on 01-11-2022 Bedside Glucose Comment Glu2: cleaned meter [facility] Platelet poor plasma interna tional normalized ratio (INR) by coagulation assay (relatOrdered By: Jonn Wallace on 01-11-2022 INR Coag (PPP) [Relative time] 0.9 {INR} [facility] Comment on above: INR Therapeutic Rang [...] on 01-11-2022 Protein [Mass/Vol] 5.1 g/dL 6.1-7.9 [facility] Serum or plasma alanine walton otransferase measurement without P-5'-P (enzymatic activiOrdered By: Jonn Wallace on 01-11-2022 ALT No additional P-5'-P [Catalytic activity/Vol] 10 U/L 10-60 [facility] Serum or plasma albumin/glob ulin mass ratioOrdered By: Jonn Wallace on 01-11-2022 Albumin/Globulin [Mass ratio] 1.1 {ratio} [facility] Serum or plasma alkaline mari sphatase measurement (enzymatic activity/volume)Ordered By: Jonn Wallace on 01-11-2022 ALP [Catalytic activity/Vol] 110 U/L 32-92 [facility] Serum or plasma aspartate am inotransferase measurement (enzymatic activity/volume)Ordered By: Jonn Wallace on 01-11-2022 AST [Catalytic activity/Vol] 10 U/L 10-42 [facility] Serum or plasma high density lipoprotein (HDL) cholesterol measurementOrdered By: Jonn Wallace on 01-11-2022 Cholesterol in HDL [Mass/Vol] 30 mg/dL 29-71 [facility] Comment on above: HDL CHOL ATP-III CLA SSIFICATION Cardiovascular RiskHDL > or equal to 60 mg/dL LOWHDL < 40 mg/dL HIGH Serum or plasma total biliru bin measurement (mass/volume)Ordered By: Jonn Wallace on 01-11-2022 Bilirubin [Mass/Vol] 0.3 mg/dL 0.3-1.2 [facility] Serum or plasma total choles terol/high density lipoprotein (HDL) cholesterol mass ratOrdered By: Jonn Wallace on 01-11-2022 Cholesterol.total/Courtney sterol in HDL [Mass ratio] 6.1 {ratio} [facility] Triglyceride [Mass/volume] i n Serum or PlasmaOrdered By: Jonn Wallace on 01-11-2022 Triglyceride [Mass/Vol] 191 mg/dL 35-149 [facility] Comment on above: TRIG ATP III [...] High sensitivity method [Mass/Vol] 46 pg/mL 0-20 [facility] Basophils Auto (Bld) [#/Vol] Ordered By: Mario Phillips on 01-10-2022 Basophils (Bld) [#/Vol] 0.1 10*3/uL 0.0-0.2 [facility] Basophils/100 WBC Auto (Bld) Ordered By: Mario Phillips on 01-10-2022 Basophils/100 WBC (Bld) 1.2 % [facility] Beta-hydroxybutyric acid taryn surementOrdered By: Mario Phillips on 01-10-2022 Beta hydroxybutyrate [Mass/Vol] 0.17 mmol/L 0.05-0.27 [facility] Blood hemoglobin measurement (mass/volume)Ordered By: Mario Phillips on 01-10-2022 Hemoglobin (Bld) [Mass/Vol] 12.0 g/dL 13.0-17.0 [facility] Blood leukocytes automated c ount (number/volume)Ordered By: Mario Phillips on 01-10-2022 WBC (Bld) [#/Vol] 9.8 10*3/uL 4.5-11.0 [facility] COVID-19 Positive/NegativeOr dered By: Mario Phillips on 01-10-2022 SARS-CoV-2 (COVID-19) N gene HONEY+probe Ql (Resp) Negative Negative [facility] Comment on above: Testing for SARS-CoV -2 by RT-PCRThis test was developed and its performance characteristics determined by [employer] and validated at the [facility]. This test has not been FDA [...] (COVID-19) Ag IA.rapid Ql (Resp) Negative Negative [facility] Comment on above: This is a duplicate Estelita SARS Antigen (RACIEL) result to be used for statistical tracking purpose only. Creatinine and Glomerular fi ltration rate.predicted panel (S/P/Bld)Ordered By: Mario Phillips on 01-10-2022 Creatinine [Mass/Vol] 1.30 mg/dL 0.64-1.27 [facility] Eosinophils Auto (Bld) [#/Vo l]Ordered By: Mario Phillips on 01-10-2022 Eosinophils (Bld) [#/Vol] 0.4 10*3/uL 0.0-0.45 [facility] Eosinophils/100 WBC Auto (Bl d)Ordered By: Mario Phillips on 01-10-2022 Eosinophils/100 WBC (Bld) 4.2 % [facility] Erythrocyte distribution wid th Auto (RBC) [Ratio]Ordered By: Mario Phillips on 01-10-2022 Erythrocyte distribution width (RBC) [Ratio] 14.0 % 12.0-14.8 [facility] Estimated glomerular filtrat ion rate (GFR) non- AmericanOrdered By: Mario Phillips on 01-10-2022 GFR/1.73 sq M.predicted among non-blacks MDRD (S/P/Bld) [Vol rate/Area] 58 mL/Min [facility] Glucose mean value [Mass/vol ume] in Blood Estimated from glycated hemoglobinOrdered By: Jonn Wallace on 01-10-2022 Average glucose Estimated from glycated hemoglobin (Bld) [Mass/Vol] 407 mg/dL [facility] Hematocrit Auto (Bld) [Volum e fraction]Ordered By: Mario Phillips on 01-10-2022 Hematocrit (Bld) [Volume fraction] 35.2 % 38.8-50.0 [facility] Hemoglobin A1c percentageOrd ered By: Jonn Wallace on 01-10-2022 HbA1c (Bld) [Mass fraction] 15.8 % 4.3-5.6 [facility] Comment on above: Increased risk for d iabetes: 5.7 - 6.4diabetes: >6.4glycemic control for adults with diabetes: <7.0 Laboratory - Chemistry and C hemistry - challengeOrdered By: Mario Phillips on 01-10-2022 Natriuretic peptide B (Bld) [Mass/Vol] 252.0 pg/mL 5-100 [facility] - Hematology and Cell countsOrdered By: Mario Phillips on 01-10-2022 Nucleated RBC/100 WBC (Bld) [Ratio] 0.0 % 0-0.5 [facility] - Microbiology an d Antimicrobial susceptibilityOrdered By: Mario Phillips on 01-10-2022 SARS-CoV-2 (COVID-19) RNA HONEY+probe Ql (Unsp spec) N/A [facility] Lymphocytes Auto (Bld) [#/Vo l]Ordered By: Mraio Phillips on 01-10-2022 Lymphocytes (Bld) [#/Vol] 1.2 10*3/uL 1.00-4.8 [facility] Lymphocytes/100 WBC Auto (Bl d)Ordered By: Mario Phillips on 01-10-2022 Lymphocytes/100 WBC (Bld) 12.3 % [facility] MCH Auto (RBC) [Entitic mass ]Ordered By: Mario Phillips on 01-10-2022 MCH (RBC) [Entitic mass] 31.1 pg 27.5-35.2 [facility] MCHC Auto (RBC) [Mass/Vol]Or dered By: Mario Phillips on 01-10-2022 MCHC (RBC) [Mass/Vol] 34.1 g/dL 32.5-35.6 [facility] MCV Auto (RBC) [Entitic vol] Ordered By: Mario Phillips on 01-10-2022 MCV (RBC) [Entitic vol] 91.2 fL 83.5-101 [facility] Monocytes Auto (Bld) [#/Vol] Ordered By: Mario Phillips on 01-10-2022 Monocytes (Bld) [#/Vol] 0.5 10*3/uL 0.0-0.8 [facility] Monocytes/100 WBC Auto (Bld) Ordered By: Mario Phillips on 01-10-2022 Monocytes/100 WBC (Bld) 4.8 % [facility] Neutrophils Auto (Bld) [#/Vo l]Ordered By: Mario Phillips on 01-10-2022 Neutrophils (Bld) [#/Vol] 7.6 10*3/uL 1.8-7.7 [facility] Neutrophils/100 WBC Auto (Bl d)Ordered By: Mario Phillips on 01-10-2022 Neutrophils/100 WBC (Bld) 77.5 % [facility] No Panel InformationOrdered By: Mraio Phillips on 01-10-2022 SARS Antigen (LFIA) [facility] Estimated GFR () > 60 mL/Min [facility] Comment on above: GFR estimated refere nce range: According to KDOQI guidelines, <60 ml/min/1.73m2 is sufficient to diagnose a patient with chronic kidney disease. Pharmacy Creatinine Clearance (Chem 76.93 [facility] No Panel InformationOrdered By: Jonn Wallace on 01-10-2022 D-Dimer Quantitative (PE/DVT) < 200 ng/mL 0-243 [facility] Comment on above: The reference range [...] volume (Bld) [Entitic vol] 9.8 fL 6.6-10.1 [facility] Platelets Auto (Bld) [#/Vol] Ordered By: Mario Phillips on 01-10-2022 Platelets (Bld) [#/Vol] 197 10*3/uL 150-450 [facility] RBC Auto (Bld) [#/Vol]Ordere d By: Mario Phillips on 01-10-2022 RBC (Bld) [#/Vol] 3.86 10*6/uL 3.90-5.60 [facility] Serum or plasma calcium regi urement (mass/volume)Ordered By: Mario Phillips on 01-10-2022 Calcium [Mass/Vol] 8.3 mg/dL 8.2-10.2 [facility] Serum or plasma chloride taryn surement (moles/volume)Ordered By: Mario Phillips on 01-10-2022 Chloride [Moles/Vol] 94 mmol/L 95-114 [facility] Serum or plasma glucose regi urement (mass/volume)Ordered By: Mario Phillips on 01-10-2022 Glucose [Mass/Vol] 525 mg/dL 70-100 [facility] Comment on above: Critical valueresult calledat 1528 on 01/10/22ADA recommended reference rangeRandom Glucose Reference Range is dependent on time and content of last meal. Glucose of more than 200 mg/dL in a nonstressed, ambulatory subject supports the diagnosis of Diabetes Mellitus. Serum or plasma potassium me asurement (moles/volume)Ordered By: Mario Phillips on 01-10-2022 Potassium [Moles/Vol] 4.6 mmol/L 3.5-5.1 [facility] Serum or plasma sodium measu rement (moles/volume)Ordered By: Mario Phillips on 01-10-2022 Sodium [Moles/Vol] 126 mmol/L 136-146 [facility] Serum or plasma total carbon dioxide measurement (moles/volume)Ordered By: Mario Phillips on 01-10-2022 CO2 [Moles/Vol] 22.7 mmol/L 22.0-30.0 [facility] Serum or plasma urea nitroge n measurement (mass/volume)Ordered By: Mario Phillips on 01-10-2022 Urea nitrogen [Mass/Vol] 17 mg/dL 9-23 [facility] TSH DL <= 0.005 mIU/L QnOrde red By: Jonn Wallace on 01-10-2022 TSH Qn 4.22 m[IU]/L 0.45-5.33 [facility] Troponin I.cardiac [Mass/vol ume] in Serum or Plasma by High sensitivity methodOrdered By: Mario Phillips on 01-10-2022 Troponin I.cardiac High sensitivity method [Mass/Vol] 43 pg/mL 0-20 [facility] COVID Quick Testingon 2020 Result Positive [employer] Other A1C HEMOGLOBINon 10-07-2021 HbA1c (Bld) [Mass fraction] % [facility] [employer] Other Glucose - FINGER STICKon Glucose [Mass/Vol] 573 mg/dL [facility] [employer] Other HbA1c (Bld) [Mass fraction]o n 07-20-2021 A1C HEMOGLOBIN [facility] [employer] Other CBC With Platelet and Differ entialon 12-29-2020 Basophils (Bld) [#/Vol] 0.0 10*3/uL Normal 0.0-0.2 [facility] Comment on above: Performed By: #### C BCWD ####[facility] [facility] [phone] Basophils/100 WBC (Bld) 0.4 % Normal [facility] Comment on above: Performed By: #### C BCWD ####[facility] [facility] [phone] Eosinophils (Bld) [#/Vol] 0.4 10*3/uL Normal 0.0-0.7 [facility] Comment on above: Performed By: #### C BCWD ####[facility] [facility] [phone] Eosinophils/100 WBC (Bld) 3.6 % Normal [facility] Comment on above: Performed By: #### C BCWD ####[facility] [facility] [phone] Erythrocyte distribution width (RBC) [Ratio] 16.1 % Critically high 11.5-14.5 [facility] Comment on above: Performed By: #### C BCWD ####[facility] [facility] [phone] Hematocrit (Bld) [Volume fraction] 33.1 % Low 42.0-52.0 [facility] Comment on above: Performed By: #### C BCWD ####[facility] [facility] [phone] Hemoglobin (Bld) [Mass/Vol] 10.8 g/dL Low 14.0-18.0 [facility] Comment on above: Performed By: #### C BCWD ####[facility] [facility] [phone] Lymphocytes (Bld) [#/Vol] 1.1 10*3/uL Normal 1.0-4.8 [facility] Comment on above: Performed By: #### C BCWD ####[facility] [facility] [phone] Lymphocytes/100 WBC (Bld) 9.4 % Normal [facility] Comment on above: Performed By: #### C BCWD ####[facility] [facility] [phone] MCH (RBC) [Entitic mass] 28.6 pg Normal 27.0-31.3 [facility] Comment on above: Performed By: #### C BCWD ####[facility] [facility] [phone] MCHC (RBC) [Mass/Vol] 32.8 % Low 33.0-37.0 [facility] [place] Comment on above: Performed By: #### C BCWD ####[facility] [facility] [phone] MCV (RBC) [Entitic vol] 87.4 fL Normal 80.0-100.0 [facility] Comment on above: Performed By: #### C BCWD ####[facility] [facility] [phone] Monocytes (Bld) [#/Vol] 0.7 10*3/uL Normal 0.2-0.8 [facility] Comment on above: Performed By: #### C BCWD ####[facility] [facility] [phone] Monocytes/100 WBC (Bld) 5.9 % Normal [facility] Comment on above: Performed By: #### C BCWD ####[facility] [facility] [phone] Neutrophils (Bld) [#/Vol] 9.4 10*3/uL Critically high 1.4-6.5 [facility] Comment on above: Performed By: #### C BCWD ####[facility] [facility] [phone] Neutrophils/100 WBC (Bld) 80.7 % Normal [facility] Comment on above: Performed By: #### C BCWD ####[facility] [facility] [phone] Platelets (Bld) [#/Vol] 314 10*3/uL Normal 130-400 [facility] Comment on above: Performed By: #### C BCWD ####[facility] [facility] [phone] RBC (Bld) [#/Vol] 3.79 10*6/uL Low 4.70-6.10 [facility] Comment on above: Performed By: #### C BCWD ####[facility] [facility] [phone] WBC (Bld) [#/Vol] 11.7 10*3/uL Critically high 4.8-10.8 [facility] Comment on above: Performed By: #### C BCWD ####[facility] [facility] [phone] CBC auto differentialon 12-12 Basophils (Bld) [#/Vol] 0.0 10*3/uL 0.0 - 0.2 K/uL [facility] [employer] Phone: Basophils/100 WBC (Bld) 0.4 % [facility] [employer] Phone: Eosinophils (Bld) [#/Vol] 0.4 10*3/uL 0.0 - 0.7 K/uL [facility] [employer] Phone: Eosinophils/100 WBC (Bld) 3.6 % [employer] Phone: Erythrocyte distribution width (RBC) [Ratio] 16.1 % High 11.5 - 14.5 % [employer] Phone: Hematocrit (Bld) [Volume fraction] 33.1 % Low 42.0 - 52.0 % [employer] Phone: Hemoglobin (Bld) [Mass/Vol] 10.8 g/dL Low 14.0 - 18.0 g/dL [employer] Phone: Interpretation and review of laboratory results Abnormal [employer] Phone: Lymphocytes (Bld) [#/Vol] 1.1 10*3/uL 1.0 - 4.8 K/uL [employer] Phone: Lymphocytes/100 WBC (Bld) 9.4 % [employer] Phone: MCH (RBC) [Entitic mass] 28.6 pg 27.0 - 31.3 pg [employer] Phone: MCHC (RBC) [Mass/Vol] 32.8 % Low 33.0 - 37.0 % [employer] Phone: MCV (RBC) [Entitic vol] 87.4 fL 80.0 - 100.0 fL [employer] Phone: Monocytes (Bld) [#/Vol] 0.7 10*3/uL 0.2 - 0.8 K/uL [employer] Phone: Monocytes/100 WBC (Bld) 5.9 % [employer] Phone: Neutrophils Absolute 9.4 K/uL High 1.4 - 6 .5 K/uL [employer] Phone: Neutrophils/100 WBC (Bld) 80.7 % [employer] Phone: Platelets (Bld) [#/Vol] 314 10*3/uL 130 - 400 K/uL [facility] [employer] Phone: RBC (Bld) [#/Vol] 3.79 10*6/uL Low [facility] [employer] Phone: WBC (Bld) [#/Vol] 11.7 10*3/uL High 4.8 - 10.8 K/uL [facility] [employer] Phone: Comprehensive Metabolic Pane l reflex Mgon 12-29-2020 Anion gap [Moles/Vol] 19 mmol/L Critically high 9-15 [facility] Comment on above: Performed By: #### C MPX ####[facility] [facility] [phone] Albumin [Mass/Vol] 3.7 g/dL Normal 3.5-4.6 [facility] Comment on above: Performed By: #### C MPX ####[facility] [facility] [phone] ALP [Catalytic activity/Vol] 109 U/L Critically high 35-104 [facility] Comment on above: Performed By: #### C MPX ####[facility] [facility] [phone] ALT [Catalytic activity/Vol] 13 U/L Normal 0-41 [facility] Comment on above: Performed By: #### C MPX ####[facility] [facility] [phone] AST [Catalytic activity/Vol] 15 U/L Normal 0-40 [facility] Comment on above: Performed By: #### C MPX ####[facility] [facility] [phone] Bilirubin [Mass/Vol] mg/dL Normal 0.2-0.7 [facility] Comment on above: Performed By: #### C MPX ####[facility] [facility] [phone] Calcium [Mass/Vol] 9.4 mg/dL Normal 8.5-9.9 [facility] Comment on above: Performed By: #### C MPX ####[facility] [place] [phone] Chloride [Moles/Vol] 104 mmol/L Normal 95-107 [facility] Comment on above: Performed By: #### C MPX ####[facility] [facility] [phone] CO2 [Moles/Vol] 22 mmol/L Normal 20-31 [facility] Comment on above: Performed By: #### C MPX ####[facility] [facility] [phone] Creatinine [Mass/Vol] 1.50 mg/dL Critically high 0.70-1.20 [facility] Comment on above: Performed By: #### C MPX ####[facility] [facility] [id number] GFR/1.73 sq M predicted among blacks MDRD (S/P/Bld) [Vol rate/Area] mL/min/{1.73_m2} Normal >60 [facility] Comment on above: Result Comment: >60 mL/min/1.73m2 EGFR, calc. for ages 18 and older using the MDRD formula (not corrected for weight), is valid for stable renal function. Performed By: #### C MPX ####[facility] [facility] [phone] GFR/1.73 sq M.predicted MDRD (S/P/Bld) [Vol rate/Area] 49.6 mL/min/{1.73_m2} Low >60 [facility] Comment on above: Result Comment: >60 mL/min/1.73m2 EGFR, calc. for ages 18 and older using the MDRD formula (not corrected for weight), is valid for stable renal function. Performed By: #### C MPX ####[facility] [facility] [phone] Globulin (S) [Mass/Vol] 3.2 g/dL Normal 2.3-3.5 M [facility] Comment on above: Performed By: #### C MPX ####[facility] [facility] [phone] Glucose [Mass/Vol] 211 mg/dL Critically high 70-99 M [facility] Comment on above: Performed By: #### C MPX ####[facility] [facility] [phone] Potassium reflex Mg 5.2 mEq/L Critically high 3.4-4.9 [facility] Comment on above: Performed By: #### C MPX ####[facility] [facility] [phone] Protein [Mass/Vol] 6.9 g/dL Normal 6.3-8.0 [facility] Comment on above: Performed By: #### C MPX ####[facility] [facility] [phone] Sodium [Moles/Vol] 145 mmol/L Critically high 135-144 M [facility] Comment on above: Performed By: #### C MPX ####[facility] [facility] [phone] Urea nitrogen [Mass/Vol] 54 mg/dL Critically high 6-20 [facility] Comment on above: Performed By: #### C MPX ####[facility] [facility] [phone] Comprehensive Metabolic Pane l w/ Reflex to MGon 12-29-2020 Albumin [Mass/Vol] 3.7 g/dL 3.5 - 4.6 g/dL [employer] Phone: ALP [Catalytic activity/Vol] 109 U/L High 35 - 104 U/L [employer] Phone: ALT [Catalytic activity/Vol] 13 U/L 0 - 41 U/L [employer] Phone: Anion gap [Moles/Vol] 19 mmol/L High [employer] [employer] Work Phone: AST [Catalytic activity/Vol] 15 U/L 0 - 40 U/L [employer] Work Phone: Bilirubin Ql (U) <0.2 0.2 - 0.7 mg/dL [employer] Work Phone: Calcium [Mass/Vol] 9.4 mg/dL 8.5 - 9.9 mg/dL [employer] Work Phone: Chloride [Moles/Vol] 104 mmol/L [employer] Work Phone: CO2 [Moles/Vol] 22 mmol/L [facility] Work Phone: Creatinine [Mass/Vol] 1.5 mg/dL High 0.70 - 1.20 mg/dL [employer] Work Phone: GFR >60.0 >60 [employer] Work Phone: Comment on above: >60 mL/min/1.73m2 EG FR, calc. for ages 18 and older using the MDRD formula (not corrected for weight), is valid for stable renal function. GFR Non- 49.6 Low >60 [employer] Work Phone: Comment on above: >60 mL/min/1.73m2 EG FR, calc. for ages 18 and older using the MDRD formula (not corrected for weight), is valid for stable renal function. Globulin (S) [Mass/Vol] 3.2 g/dL 2.3 - 3.5 g/dL [employer] Work Phone: Glucose [Mass/Vol] 211 mg/dL High 70 - 99 mg/dL [employer] Work Phone: Interpretation and review of laboratory results Abnormal [employer] Work Phone: Potassium [Moles/Vol] 5.2 mmol/L High [employer] Work Phone: Protein [Mass/Vol] 6.9 g/dL 6.3 - 8.0 g/dL [facility] Phone: Sodium [Moles/Vol] 145 mmol/L High [facility] Phone: Urea nitrogen [Mass/Vol] 54 mg/dL High 6 - 20 mg/dL [facility] Phone: POCT Glucoseon 12-29-2020 Glucose [Mass/Vol] 168 mg/dL Critically high 60-115 M [facility] Comment on above: Performed By: #### P GLU ####[facility] [place] [phone] POC Performed on ACCU-CHEK [facility] Comment on above: Performed By: #### P GLU ####[facility] [place] [phone] Glucose [Mass/Vol] 168 mg/dL High 60 - 115 mg/dl [facility] [employer] Phone: Interpretation and review of laboratory results Abnormal [facility] Phone: Performed on ACCU-CHEK [facility] [employer] Phone: Glucose [Mass/Vol] 242 mg/dL Critically high 60-115 [facility] Comment on above: Performed By: #### P GLU #### [facility] [address] [place] [address] POC Performed on ACCU-CHEK [facility] Comment on above: Performed By: #### P GLU #### [facility] [address] [place] [address] Glucose [Mass/Vol] 242 mg/dL High 60 - 115 mg/dl [facility] [employer] Phone: Interpretation and review of laboratory results Abnormal [facility] Phone: Performed on ACCU-CHEK [facility] Phone: APTTon 12-28-2020 aPTT Coag (Bld) [Time] 28.8 s [facility] [employer] Work Phone: Comment on above: Effective 08/17/2020: Heparin Therapeutic Range: 64.0 98.0 seconds. Basic Metabolic Panelon 12-12 Calcium [Mass/Vol] 9.3 mg/dL Normal 8.5-9.9 [facility] Comment on above: Performed By: #### B MP #### [facility] [address] [place] [address] Chloride [Moles/Vol] 99 mmol/L Normal 95-107 [facility] Comment on above: Performed By: #### B MP #### [facility] [address] [place] [address] CO2 [Moles/Vol] 29 mmol/L Normal 20-31 [facility] Comment on above: Performed By: #### B MP #### [facility] [address] [place] [address] Creatinine [Mass/Vol] 1.59 mg/dL Critically high 0.70-1.20 [facility] Comment on above: Performed By: #### B MP #### [facility] [address] [place] [address] GFR/1.73 sq M predicted among blacks MDRD (S/P/Bld) [Vol rate/Area] 56.2 mL/min/{1.73_m2} Low >60 [facility] Comment on above: Result Comment: >60 mL/min/1.73m2 EGFR, calc. for ages 18 and older using the MDRD formula (not corrected for weight), is valid for stable renal function. Performed By: #### B MP #### [facility] [address] [place] [address] GFR/1.73 sq M.predicted MDRD (S/P/Bld) [Vol rate/Area] 46.4 mL/min/{1.73_m2} Low >60 [facility] Comment on above: Result Comment: >60 mL/min/1.73m2 EGFR, calc. for ages 18 and older using the MDRD formula (not corrected for weight), is valid for stable renal function. Performed By: #### B MP #### [facility] [address] [place] [address] Glucose [Mass/Vol] 73 mg/dL Normal 70-99 [facility] Comment on above: Performed By: #### B MP #### [facility] [address] [place] [address] Potassium [Moles/Vol] 4.8 mmol/L Normal 3.4-4.9 [facility] [place] Comment on above: Performed By: #### B MP #### [facility] [address] [place] [address] Sodium [Moles/Vol] 137 mmol/L Normal 135-144 [facility] Comment on above: Performed By: #### B MP #### [facility] [address] [place] [address] Urea nitrogen [Mass/Vol] 58 mg/dL Critically high 6-20 [facility] Comment on above: Performed By: #### B MP #### [facility] [address] [place] [address] Anion gap [Moles/Vol] 9 mmol/L Normal 9-15 [facility] [place] Comment on above: Performed By: #### B MP #### [facility] [address] [place] [address] Anion gap [Moles/Vol] 9 mmol/L [facility] [employer] Work Phone: Calcium [Mass/Vol] 9.3 mg/dL 8.5 - 9.9 mg/dL [facility] [employer] Work Phone: Chloride [Moles/Vol] 99 mmol/L [facility] [employer] Work Phone: CO2 [Moles/Vol] 29 mmol/L [facility] Work Phone: Creatinine [Mass/Vol] 1.59 mg/dL High 0.70 - 1.20 mg/dL [employer] Phone: GFR 56.2 Low >60 [employer] Phone: Comment on above: >60 mL/min/1.73m2 EG FR, calc. for ages 18 and older using the MDRD formula (not corrected for weight), is valid for stable renal function. GFR Non- 46.4 Low >60 [facility] Phone: Comment on above: >60 mL/min/1.73m2 EG FR, calc. for ages 18 and older using the MDRD formula (not corrected for weight), is valid for stable renal function. Glucose [Mass/Vol] 73 mg/dL 70 - 99 mg/dL [facility] Phone: Interpretation and review of laboratory results Abnormal [facility] Phone: Potassium [Moles/Vol] 4.8 mmol/L [facility] [employer] Phone: Sodium [Moles/Vol] 137 mmol/L [facility] Phone: Urea nitrogen [Mass/Vol] 58 mg/dL High 6 - 20 mg/dL [facility] Phone: CBC Auto Differentialon 03- Basophils (Bld) [#/Vol] 0.0 10*3/uL 0.0 - 0.2 K/uL [facility] Phone: Basophils/100 WBC (Bld) 0.3 % M [facility] Phone: Eosinophils (Bld) [#/Vol] 0.6 10*3/uL 0.0 - 0.7 K/uL [facility] Phone: Eosinophils/100 WBC (Bld) 5.5 % [facility] Phone: Erythrocyte distribution width (RBC) [Ratio] 15.1 % High 11.5 - 14.5 % [facility] Phone: Hematocrit (Bld) [Volume fraction] 34.7 % Low 42.0 - 52.0 % [employer] Phone: Hemoglobin (Bld) [Mass/Vol] 11.5 g/dL Low 14.0 - 18.0 g/dL [employer] Phone: Interpretation and review of laboratory results Abnormal [employer] Phone: Lymphocytes (Bld) [#/Vol] 1.4 10*3/uL 1.0 - 4.8 K/uL [employer] Phone: Lymphocytes/100 WBC (Bld) 13.4 % [employer] Phone: MCH (RBC) [Entitic mass] 28.8 pg 27.0 - 31.3 pg [employer] Phone: MCHC (RBC) [Mass/Vol] 33.0 % 33.0 - 37.0 % [employer] Phone: MCV (RBC) [Entitic vol] 87.0 fL 80.0 - 100.0 fL [employer] Phone: Monocytes (Bld) [#/Vol] 0.8 10*3/uL 0.2 - 0.8 K/uL [employer] Phone: Monocytes/100 WBC (Bld) 7.5 % [facility] Phone: Neutrophils Absolute 7.5 K/uL High 1.4 - 6 .5 K/uL [facility] Phone: Neutrophils/100 WBC (Bld) 73.3 % [employer] Phone: Platelets (Bld) [#/Vol] 306 10*3/uL 130 - 400 K/uL [employer] Phone: RBC (Bld) [#/Vol] 3.99 10*6/uL Low [employer] Phone: WBC (Bld) [#/Vol] 10.2 10*3/uL 4.8 - 10.8 K/uL [facility] [employer] Work Phone: CBC With Platelet and Differ entialon 12-28-2020 Basophils (Bld) [#/Vol] 0.0 10*3/uL Normal 0.0-0.2 [facility] Comment on above: Performed By: #### C BCWD #### [facility] [address] [place] [address] Basophils/100 WBC (Bld) 0.3 % Normal [facility] Comment on above: Performed By: #### C BCWD #### [facility] [address] [place] [address] Eosinophils (Bld) [#/Vol] 0.6 10*3/uL Normal 0.0-0.7 [facility] Comment on above: Performed By: #### C BCWD #### [facility] [address] [place] [address] Eosinophils/100 WBC (Bld) 5.5 % Normal [facility] Comment on above: Performed By: #### C BCWD #### [facility] [address] [place] [address] Erythrocyte distribution width (RBC) [Ratio] 15.1 % Critically high 11.5-14.5 [facility] Comment on above: Performed By: #### C BCWD #### [facility] [address] [place] [address] Hematocrit (Bld) [Volume fraction] 34.7 % Low 42.0-52.0 [facility] Comment on above: Performed By: #### C BCWD #### [facility] [address] [place] [address] Hemoglobin (Bld) [Mass/Vol] 11.5 g/dL Low 14.0-18.0 [facility] Comment on above: Performed By: #### C BCWD #### [facility] [address] [place] [address] Lymphocytes (Bld) [#/Vol] 1.4 10*3/uL Normal 1.0-4.8 [facility] Comment on above: Performed By: #### C BCWD #### [facility] [address] [place] [address] Lymphocytes/100 WBC (Bld) 13.4 % Normal [facility] Comment on above: Performed By: #### C BCWD #### [facility] [address] [place] [address] MCH (RBC) [Entitic mass] 28.8 pg Normal 27.0-31.3 [facility] Comment on above: Performed By: #### C BCWD #### [facility] [address] [place] [address] MCHC (RBC) [Mass/Vol] 33.0 % Normal 33.0-37.0 [facility] [place] Comment on above: Performed By: #### C BCWD #### [facility] [address] [place] [address] MCV (RBC) [Entitic vol] 87.0 fL Normal 80.0-100.0 [facility] Comment on above: Performed By: #### C BCWD #### [facility] [address] [place] [address] Monocytes (Bld) [#/Vol] 0.8 10*3/uL Normal 0.2-0.8 [facility] Comment on above: Performed By: #### C BCWD #### [facility] [address] [place] [address] Monocytes/100 WBC (Bld) 7.5 % Normal [facility] Comment on above: Performed By: #### C BCWD #### [facility] [address] [place] [address] Neutrophils (Bld) [#/Vol] 7.5 10*3/uL Critically high 1.4-6.5 [facility] Comment on above: Performed By: #### C BCWD #### [facility] [address] [place] [address] Neutrophils/100 WBC (Bld) 73.3 % Normal [facility] Comment on above: Performed By: #### C BCWD #### [facility] [address] [place] [address] Platelets (Bld) [#/Vol] 306 10*3/uL Normal 130-400 [facility] Comment on above: Performed By: #### C BCWD #### [facility] [address] [place] [address] RBC (Bld) [#/Vol] 3.99 10*6/uL Low 4.70-6.10 [facility] Comment on above: Performed By: #### C BCWD #### [facility] [address] [place] [address] WBC (Bld) [#/Vol] 10.2 10*3/uL Normal 4.8-10.8 [facility] Comment on above: Performed By: #### C BCWD #### [facility] [address] [place] [address] COVID-19on 12-28-2020 COVID-19, NAAT Not Detected Normal Not Detect [facility] Comment on above: Result Comment: Rapi d [...] authorized laboratories. Fact sheet for Healthcare Providers: https://www.fda.gov/media/095252/download Fact sheet for Patients: https://www.fda.gov/media/037482/download METHODOLOGY: Isothermal Nucleic Acid Amplification Performed By: #### C OVRG #### [facility] [address] [place] [address] COVID-19, Rapidon 12-28-2020 SARS-CoV-2, NAAT Not Detected Not Detected [facility] Phone: Comment on above: Rapid NAAT: Negative [...] authorized laboratories. Fact sheet for Healthcare Providers: https://www.fda.gov/media/031195/download Fact sheet for Patients: https://www.fda.gov/media/137009/download METHODOLOGY: Isothermal Nucleic Acid Amplification POCT Glucoseon 12-28-2020 Glucose [Mass/Vol] 86 mg/dL Normal 60-115 [facility] Comment on above: Performed By: #### P GLU #### [facility] [address] [place] [address] POC Performed on ACCU-CHEK [facility] Comment on above: Performed By: #### P GLU #### [facility] [address] [place] [address] Glucose [Mass/Vol] 86 mg/dL 60 - 115 mg/dl [facility] [employer] [facility] Phone: Performed on ACCU-CHEK [facility] [employer] [facility] Phone: Partial Thromboplastin Timeo n 12-28-2020 aPTT Coag (Bld) [Time] 28.8 s Normal 24.4-36.8 [facility] Comment on above: Result Comment: Effe ctive 08/17/2020: Heparin Therapeutic Range: 64.0 ? 98.0 seconds. Performed By: #### P TT #### [facility] [address] [place] [address] Prothrombin Timeon INR Coag (PPP) [Relative time] 1.0 {INR} [facility] Comment on above: Performed By: #### P T #### [facility] [address] [place] [address] PT Coag (PPP) [Time] 13.7 s Normal 12.3-14.9 [facility] Comment on above: Performed By: #### P T #### [facility] [address] [place] [address] Protime-INRon 12-28-2020 INR Coag (PPP) [Relative time] 1.0 {INR} [employer] Phone: PT Coag (PPP) [Time] 13.7 s [facility] [employer] Phone: TYPE AND SCREENon 12-28-2020 ABO/Rh Positive [employer] Phone: Type and Screen Capture 3 sc rn cellon 12-28-2020 Type and Screen Capture 3 scrn cell PATIENT: MILY Forde LOC: [facility] BILL# : [id number] : 1970 SEX: M ORDERED BY: URIAH BONILLA ORDERED : 12/28/2020 12:26 COLLECTED: 12/28/2020 12:30 ORDER : [id number] RECEIVED : 12/28/2020 13:07 ------ TEST NAME RESULT UNITS RANGES ABN FL ST ABORH Capture O POS F Antibody 3 Cell Scrn Captu NEG F ----- Normal [facility] Comment on above: Performed By: #### T S3C #### [facility] [address] [place] [address] CTA ABDOMINAL AORTA W BILAT RUNOFF W WO CONTRASTon 12-21-2020 Three-vessel distal runoff, right lower extremity. Two-vessel distal runoff, left lower extremity, the anterior tibial and posterior tibial arteries. Bilateral lower extremity edema. Constipation All CT scans at this facility use dose modulation, iterative reconstruction, and/or weight based dosing when appropriate to reduce radiation dose to as low as reasonably achievable. [facility] Work Phone: CTA abdomen, pelvis, bilateral lower [...] to the level of the distal tibia. [employer] Phone: Chip, [facility] Incoming Radiant Results From [employer] - 12/21/2020 9:36 AM EST CTA abdomen, [...] dose to as low as reasonably achievable. [employer] Phone: POCT Venouson 12-21-2020 Creatinine [Mass/Vol] 0.7 mg/dL Low 0.9 - 1.3 mg/dL [employer] Phone: GFR >60 >60 [employer] Phone: Comment on above: >60 mL/min/1.73m2 EG FR, calc. for ages 18 and older using the MDRD formula (not corrected for weight), is valid for stable renal function. GFR Non- >60 >60 [employer] Phone: Comment on above: >60 mL/min/1.73m2 EG FR, calc. for ages 18 and older using the MDRD formula (not corrected for weight), is valid for stable renal function. Interpretation and review of laboratory results Abnormal [employer] Phone: Performed on SEE BELOW [employer] Phone: Comment on above: Performed on POC Sample Type KELVIN [employer] Phone: CTA ABDOMINAL AORTA W BILAT RUNOFF [...] Jaguar [place] MD 12/21/20 Final result Normal [facility] POCT Venouson 12-20-2020 Creatinine [Mass/Vol] 0.7 mg/dL Low 0.9-1.3 [facility], [place] Comment on above: Performed By: #### P KELVIN #### [facility] [address] [facility] [address] GFR/1.73 sq M predicted among blacks MDRD (S/P/Bld) [Vol rate/Area] mL/min/{1.73_m2} Normal >60 [facility] Comment on above: Result Comment: >60 mL/min/1.73m2 EGFR, calc. for ages 18 and older using the MDRD formula (not corrected for weight), is valid for stable renal function. Performed By: #### P KELVIN #### [facility] [address] [facility] [address] GFR/1.73 sq M.predicted MDRD (S/P/Bld) [Vol rate/Area] mL/min/{1.73_m2} Normal >60 [facility] Comment on above: Result Comment: >60 mL/min/1.73m2 EGFR, calc. for ages 18 and older using the MDRD formula (not corrected for weight), is valid for stable renal function. Performed By: #### P KELVIN #### [facility] [address] [place] [address] POC Performed on SEE BELOW [facility] Comment on above: Result Comment: Perf ormed on POC Performed By: #### P KELVIN #### [facility] [address] [place] [address] POC Sample Type KELVIN Normal [facility] Comment on above: Performed By: #### P KELVIN #### [facility] [address] [place] [address] Coding Summary.on 01-14-2019 Coding Summary. CODING DATE: 019 FINAL [facility] STATUS: Home (Routine DC) PAYOR: Commercial [...] unspecified, not intractable, without status epilepticus Z79.4 longterm (current) use of insulin Z79.82 longterm (current) use of aspirin Z79.51 longterm (current) use of inhaled steroids Z79.899 Other bed bug exterminator (current) drug therapy Z88.8 Allergy status to other drugs, medicaments and biological substances status PYMT PROC APC STAT DESCRIPTION DOCTOR NAME DATE 5053 T Adjacent tissue transfer House Fadi 01/08/2019 or rearrangement, scalp, arms and/or legs; defect 10 sq cm or less [address] Anesthesia for Luis Sellers Jr., DO 01/08/2019 [...] Mckeon Date Saved: 01/14/2019 12:54 pm Normal [facility] Inpatient Patient Summaryon 01-08-2019 Inpatient Patient Summary [facility] Clinical Discharge Instructions PERSON INFORMATION Name: [facility] Admitting Physician: Fatoumata Tirado MD Attending Physician: Fatoumata Tirado MD PCP: Fadi Tenorio DO Discharge Diagnosis: Scalp lesion Comment: PATIENT EDUCATION INFORMATION Instructions: Medication Leaflets: Follow up: With: Address: When: Fatoumata Tirado [address] [place] [address], [facility] [address], [address] [place] [id number] Business (1) In 8 days 01/16/2019 MEDICATION LIST Comment: [facility] Main OR Intraoperative Recor don 01-08-2019 Main OR Intraoperative Record IntraOp Document Type FT Summary Primary Physician: Fatoumata Tirado MD Finalized Date/Time: 01/08/19 14:23:55 Pt. Name: CHANDLER MINOR Yifan/Sex: 1970 Male Med Rec #: [id number] Physician: Fatoumata Tirado MD Financial #: [id number] Pt. Type: A Room/Bed: [place] [address] Admit/Disch: 01/08/19 07:12:00 - 01/08/19 12:35:00 Institution: [...] Role Performed Anesthesiologist of Surgeon - Primary Last Trimmer - Primary Record Time In 01/08/19 09:34:00 01/08/19 09:44:00 01/08/19 09:34:00 Time Out 01/08/19 10:32:00 01/08/19 10:32:00 01/08/19 10:32:00 Procedure CYST LESION CYST LESION CYST LESION REMOVAL(Left) REMOVAL(Left) REMOVAL(Left) Comments Last Modified By: Demetrius MARTÍNEZ, Danielle Romo RN, Danielle Pacheco RN 01/08/19 10:31:49 01/08/19 10:31:49 01/08/19 10:31:49 Entry 4 Entry 5 Case Attendee Demetrius MARTÍNEZ, Danielle Miguel CST, Gary Tao Role Performed Last Trimmer - Primary Scrub - Primary Time In [...] General Comments: right upper arm diabetic sensor. Ksasidy merchant rn Patient Positioning FT Pre-Care Text: [...] Romo RN, Barker Krupp RN, Andrzej Pierre, SILO OPERATOR, Gary Miguel CST, Gary Tao Outcomes Met? [...] to transfer/transport General Comments: report given to e learning designerrn. Kassidy merchant rn Dressing/Packing FT Pre-Care Text: [...] safely administered during the perioperative period For [facility] please see scanned medication reconcilliation form for [...] AIR Quantity 1 Aid PLUS LOWER BODY [EQ0012-IV][F] Fluid/[place] [facility] Mistral warming system Setting high/43 Body Site Lower anterior torso Last Modified By: Danielle Romo RN 01/08/19 07:32:52 Case Comments Finalized By: Nunu Asif CST Document Signatures Signed By: Danielle Romo RN 01/08/19 10:35 Nunu Asif CST 01/08/19 14:23 Normal [facility] Main OR PACU I Recordon 12-13 Main OR PACU I Record PACU Phase I Docum ent Type FT Summary Primary Physician: Fatoumata Tirado MD Finalized Date/Time: 01/08/19 11:13:30 Pt. Name: CHANDLER MINOR/Sex: 1970 Male Med Rec #: [id number] Physician: Fatoumata Tirado MD Financial #: [id number] Pt. Type: A Room/Bed: [facility] Admit/Disch: 01/08/19 07:12:51 - Institution: Case Times [...] 01/08/19 11:03 Sugey Oden RN 01/08/19 11:13 [facility] Main OR PACU II Recordon Main OR PACU II Record PACU Phase II Doc ument Type FT Summary Primary Physician: Fatoumata Tirado MD Finalized Date/Time: 01/08/19 13:45:23 Pt. Name: CHANDLER MINOR Yifan/Sex: 1970 Male Med Rec #: [id number] Physician: Fatoumata Tirado MD Financial #: [id number] Pt. Type: A Room/Bed: [facility] Admit/Disch: 01/08/19 07:12:51 - Institution: Case Times [...] 13:43 Ilana Peguero RN 01/08/19 13:45 Normal [facility] Main OR Preoperative Recordo n 01-08-2019 Main OR Preoperative Record PreOp Document Type FT Summary Primary Physician: Fatoumata Tirado MD Finalized Date/Time: 01/08/19 09:51:30 Pt. Name: MILYCHANDLER/Sex: 1970 Male Med Rec #: [id number] Physician: Fatoumata Tirado MD Financial #: [id number] Pt. Type: A Room/Bed: [place] [address] Admit/Disch: 01/08/19 07:12:51 - Institution: Case Times [...] By: Danielle Romo RN 01/08/19 09:51 Normal [facility] Operative Reporton 9 Operative Report Date of [...] Fatoumata Tirado Jr., M.D. aek Dictated: 01/08/2019 #[id number] Typed: 01/08/2019 #[id number] cc: Rosi Barragan Jr., M.D. [facility] Comment on above: Result Comment: Elec tronically Signed By: Fatoumata Tirado MD\.br\Date and Time Signed: 01/08/19 14:38 EDT Operative Report Patient: MELVI MINOR Age: 48 years Sex: Male : 1970 Associated Diagnoses: None Author: Fatoumata Tirado MD Postoperative Information Procedure: r/o scalp lesion and advancement flap closure (5cm length) Preoperative Diagnosis: Scalp lesion ([id number] L98.9, Working, Medical). Postoperative Diagnosis: Scalp lesion ([id number] L98.9, Discharge, Medical). Performed by: Fatoumata Tirado MD. Findings: scalp cyst with fistulous tract. Specimens Removed: scalp lesion. Estimated Blood Loss: 10 ml. Medications Complications: None. Normal [facility] Comment on above: Result Comment: Elec tronically Signed By: Fatoumata Tirado MD\.br\Date and Time Signed: 01/08/19 10:45 EDT Patient Education - Texton 0 01-08-2019 Patient Education - Text Normal [facility] Progress Note-Physicianon Protein mass conc Patient: [...] list: All Problems Asthma / SNOMED CT 561667646 / Confirmed Carpal tunnel syndrome / SNOMED CT 93323598 / Confirmed bilateral Depression / SNOMED CT 00233312 / Confirmed Diabetes / SNOMED CT 927397611 / Confirmed Acid reflux / SNOMED CT 767397502 / Confirmed Hypertension / SNOMED CT 3457346966 / Confirmed Scalp lesion / SNOMED CT 4653115539 / Confirmed x2 Migraine headache / SNOMED CT 87788182 / Confirmed Parkinson's disease / SNOMED CT 35191436 / Confirmed Sarcoidosis / SNOMED CT 67163747 / Confirmed Seizure / SNOMED CT 812054555 / Confirmed last July was last seizure- in PACU Sleep apnea / SNOMED CT 334461703 / Confirmed uses CPAP Smoker / SNOMED CT 006119061 / Confirmed Added secondary to documentation in [...] results Radiology results ECG interpretation Condition Plan [place] [employer]hesi[employer] (ASA) physical status classification: Class III. Anesthetic Preoperative Plan Anesthesia: General. . Anesthetic plan, risks, benefits, and alternatives discussed with the patient and/or family. Risks discussed: nausea, vomiting, headache, sore throat, dental injury, serious complications. Patient verbalized understanding. Communication: face to face with (patient 5 minutes, Pt educated on the importance of smoking cessation.). [facility] Comment on above: Result Comment: Elec tronically Signed By: Nehemiah Orosco Jr, DO\.br\Date and Time Signed: 01/08/19 16:48 EDT Coding Summary.on 12-31-2018 Coding Summary. CODING DATE: 019 [facility] STATUS: Home (Routine DC) PAYOR: Commercial [...] Corado CphT Date Saved: 12/31/2018 01:25 pm [facility] Auto Diffon 12-30-2018 Basophils #/vol (Bld) 0.3 % Normal 0.0-2.0 [facility] Comment on above: Order Comment: Order Added by Asad Expert. Performed By: #### 2 539219, [id number], [id number] #### [facility] [address] [place] [address] Basophils/Leukocytes Auto Pure number fraction (Bld) 0.0 E9/L Normal 0.0-0.2 [facility] Comment on above: Order Comment: Order Added by Asad Expert. Performed By: #### 2 087814, 2116561, [id number] #### [facility] [address] [place] [address] Eosinophils/100 WBC (Bld) 3.9 % Normal 0.0-8.0 [facility] Comment on above: Order Comment: Order Added by Asad Expert. Performed By: #### 2 834496, 1327592, [id number] #### [facility] [address] [place] [address] Eosinophils/Leukocytes Auto Pure number fraction (Bld) 0.3 E9/L Normal 0.0-0.5 [facility] Comment on above: Order Comment: Order Added by Asad Expert. Performed By: #### 2 686692, 1934883, [id number] #### [facility] [address] [place] [address] Lymphocytes/100 WBC (Bld) 22.4 % Normal 14.0-50.0 [facility] Comment on above: Order Comment: Order Added by Asad Expert. Performed By: #### 2 089675, 3556136, [id number] #### [facility] [address] [place] [address] Lymphocytes/Leukocytes Auto Pure number fraction (Bld) 1.9 E9/L Normal 1.0-4.0 [facility] Comment on above: Order Comment: Order Added by Asad Expert. Performed By: #### 2 195833, 6919638, [id number] #### [facility] [address] [place] [address] Monocytes/100 WBC (Bld) 7.7 % Normal 4.0-14.0 [facility] Comment on above: Order Comment: Order Added by Discern Expert. Performed By: #### 2 003451, 0641168, [id number] #### [facility] [address] [place] [address] Monocytes/Leukocytes Auto Pure number fraction (Bld) 0.7 E9/L Normal 0.2-1.0 [facility] Comment on above: Order Comment: Order Added by Discern Expert. Performed By: #### 2 300591, 3959756, [id number] #### [facility] [address] [place] [address] Neutrophils/100 WBC (Bld) 65.7 % Normal 36.0-75.0 [facility] Comment on above: Order Comment: Order Added by Discern Expert. Performed By: #### 2 335051, 4280518, 12127501 #### [facility] [address] [place] [address] Neutrophils/Leukocytes Auto Pure number fraction (Bld) 5.6 E9/L Normal 2.0-7.5 [facility] Comment on above: Order Comment: Order Added by Discern Expert. Performed By: #### 2 260791, 4600905, [id number] #### [facility] [address] [place] [address] BUNon 12-30-2018 Urea nitrogen mass conc 18 mg/dL Normal 5-21 [facility] Comment on above: Performed By: #### 2 333683, 2897288, 40107388, 1763501, 9123874 #### [facility] [address] [place] [address] CBC w/ Auto Diffon 9 Erythrocyte distribution width Ratio (RBC) 13.1 % Normal 10.9-14.2 [facility] Comment on above: Performed By: #### 2 789018, 5408293, 85750790 #### [facility] [address] [place] [address] Hematocrit Volume Fraction (Bld) 39.6 % Normal 37.7-49.0 [facility] Comment on above: Performed By: #### 2 946818, 1642968, 15344546 #### [facility] [address] [place] [address] Hemoglobin mass conc (Bld) 13.7 g/dL Normal 13.5-17.5 [facility] Comment on above: Performed By: #### 2 195901, 7312031, [id number] #### [facility] [address] [place] [address] MCH Entitic mass (RBC) 32.5 pg Normal 27.0-34.0 [facility] Comment on above: Performed By: #### 2 369860, 9485053, [id number] #### [facility] [address] [place] [address] MCHC mass conc (RBC) 34.5 g/dL Normal 33.3-35.7 [facility] Comment on above: Performed By: #### 2 315864, 6407418, [id number] #### [facility] [address] [place] [address] MCV Entitic volume (RBC) 94.1 fL Normal 80.0-100.0 [facility] Comment on above: Performed By: #### 2 913321, 0950160, 55746814 #### [facility] [address] [place] [address] Platelet mean volume Entitic volume (Bld) 9.1 fL Normal 6.4-10.8 [facility] Comment on above: Performed By: #### 2 121097, 8133580, [id number] #### [facility] [address] [place] [address] Platelets #/vol (Bld) 229.0 E9/L Normal 150.0- 500. 0 [facility] Comment on above: Performed By: #### 2 693401, 6186471, [id number] #### [facility] [address] [place] [address] RBC #/vol (Bld) 4.2 E12/L Low 4.3-5.9 [facility] Comment on above: Performed By: #### 2 887959, 2557672, [id number] #### [facility] [address] [place] [address] WBC corrected for nucl RBC Auto #/vol (Bld) 8.5 E9/L Normal 4.0-11.0 [facility] Comment on above: Performed By: #### 2 978526, 1852959, 38736623 #### [facility] [address] [place] [address] Creatinineon 12-30-2018 Creatinine mass conc 0.8 mg/dL Normal 0.5-1.3 [facility] Comment on above: Performed By: #### 2 137852, 2376305, 90215863, 7133513, 9176116 #### [facility] [address] [place] [address] Glucoseon 12-30-2018 Glucose mass conc 214 mg/dL High 55-199 [facility] Comment on above: Performed By: #### 2 897065, 2317396, 33356045, 9279511, 1415525 #### [facility] [address] [place] [address] Lyteson 12-30-2018 Anion gap molar conc 12 mmol/L Normal 6-16 [facility] Comment on above: Performed By: #### 2 639978, 1523092, 55602784, 4340082, 2660348 #### [facility] [address] [place] [address] Chloride molar conc 103 mmol/L Normal 101-111 [facility] Comment on above: Performed By: #### 2 849366, 9517661, 69856143, 5443484, 4582944 #### [facility] [address] [place] [address] CO2 molar conc 24 mmol/L Normal 21-31 [facility] Comment on above: Performed By: #### 2 972554, 0712485, 60608010, 0088802, 5853331 #### [facility] [address] [place] [address] Potassium molar conc 4.0 mmol/L Normal 3.5-5.3 [facility] Comment on above: Performed By: #### 2 618400, 7604472, 37740765, 0016536, 7570542 #### [facility] [address] [place] [address] Sodium molar conc 135 mmol/L Normal 135-145 [facility] Comment on above: Performed By: #### 2 571010, 4669715, 65534193, 9017026, 7513779 #### [facility] [address] [place] [address] PT & PTTon 12-30-2018 aPTT Coag time (PPP) 30.2 second(s) Normal 25.1-36.5 [facility] Comment on above: Result Comment: Hepa rin therapeutic range (represented by Anti-Factor Xa activity of 0.2 - 0.4 U/mL) corresponds to PTT of 56.6 - 109.0 sec. Performed By: #### 2 939712, 8476101, [id number] #### [facility] [address] [place] [address] INR Coag RelTime (PPP) 1.0 {INR} [facility] Comment on above: Result Comment: INR results are specifically intended to assess patients stabilized on long-term Anticoagulation therapy suggested INR?s ?Less Intensive Anticoagulation? 2.0 ? 3.0 Conventional Range 3.0 ? 4.5 Performed By: #### 2 832579, 8823774, 30658007 #### [facility] [address] [place] [address] Prothrombin time (PT) Coag time (PPP) 10.6 second(s) Normal 10.2-12.9 [facility] Comment on above: Performed By: #### 2 475617, 4289885, [id number] #### [facility] [address] [place] [address] XR Chest 2 Viewson 9 XR Chest [...] M.D. Transcribed by: ELDON Technologist: BARBARA Zuñiga [facility] eGFRon 12-30-2018 GFR/1.73 sq M predicted among blacks MDRD vol rate/area (S/P/Bld) mL/min/{1.73_m2} Normal >=59 [facility] Comment on above: Order Comment: Order added by Discern Expert. Result Comment: eGFR is race adjusted. AA=. Performed By: #### 2 944130, 1742000, 30525031, 7613764, 3437342 #### [facility] [address] [place] [address] GFR/1.73 sq M predicted among non-blacks MDRD vol rate/area (S/P/Bld) mL/min/{1.73_m2} Normal >=59 [facility] Comment on above: Order Comment: Order added by Discern Expert. Result Comment: Creative Services Designer del kidney disease could be indicated at eGFR's of less than 60 mL/min/1.73m2. Kidney failure is indicated at less than 15 mL/min/1.73m2. Performed By: #### 2 396957, 1264346, [id number], 5647877, 4721173 #### [facility] [address] [place] [address] No Panel Information [facility] Vital Signs Date Time Vital Sign Value Performing Clinician Facility 09-17-2023 13:00-0500 Body height 170.18 cm Agus Yovany Other [facility] Other 09-17-2023 13:00-0500 Diastolic blood pressure 74 mm[Hg] Agus Pedroza Other [facility] Other 09-17-2023 13:00-0500 SaO2% (BldA) [Mass fraction] 98 % Agus Pedroza Other [facility] Other 09-17-2023 13:00-0500 Systolic blood pressure 113 mm[Hg] Agus Pedroza Other [facility] Other 08-03-2023 11:00-0400 Body temperature 98.6 [degF] DO Christopher Jack Work Phone: [facility] 08-03-2023 11:00-0400 Diastolic blood pressure 79 mm[Hg] DO Christopher Jack Work Phone: [facility] 08-03-2023 11:00-0400 Heart rate 79 /min DO Christopher Arapahoe Work Phone: [facility] 08-03-2023 11:00-0400 Respiratory rate 14 /min DO Christopher Arapahoe Work Phone: [facility] 08-03-2023 11:00-0400 SaO2% (BldA) [Mass fraction] 98 % DO Christopher Arapahoe Work Phone: [facility] 08-03-2023 11:00-0400 Systolic blood pressure 168 mm[Hg] DO Christopher Jack Work Phone: [facility] 08-03-2023 05:54-0400 Inhaled oxygen flow rate 2 L/min DO Christopher Jack Work Phone: [facility] 08-02-2023 21:19-0400 Body height 173 cm DO Christopher Jack Work Phone: [facility] 08-02-2023 21:19-0400 Body mass index (BMI) [Ratio] 28.7 kg/m2 DO Christopher Jack Work Phone: [facility] 08-02-2023 21:19-0400 Body weight 86 kg DO Christopher Jack Work Phone: [facility] 08-02-2023 08:01-0400 Diastolic blood pressure 65 mm[Hg] DO Christopher Arapahoe Work Phone: [facility] 08-02-2023 08:01-0400 Heart rate 69 /min DO Christopher Jack Work Phone: [facility] 08-02-2023 08:01-0400 Respiratory rate 15 /min DO Christopher Arapahoe Work Phone: [facility] 08-02-2023 08:01-0400 SaO2% (BldA) [Mass fraction] 97 % DO Christopher Jack Work Phone: [facility] 08-02-2023 08:01-0400 Systolic blood pressure 96 mm[Hg] DO Christopher Jack Work Phone: [facility] 08-02-2023 07:44-0400 Body temperature 94.5 [degF] DO Christopher Arapahoe Work Phone: [facility] 08-02-2023 04:42-0400 Inhaled oxygen flow rate 99 L/min DO Christopher Arapahoe Work Phone: [facility] 08-02-2023 04:15-0400 Body height 172.72 cm DO Christopher Jack Work Phone: [facility] 08-02-2023 04:15-0400 Body mass index (BMI) [Ratio] 28.8 kg/m2 DO Christopher Jack Work Phone: [facility] 08-02-2023 04:15-0400 Body weight 86 kg DO Christopher Jack Work Phone: [facility] 08-02-2023 04:15-0400 SaO2% (BldA) [Mass fraction] 95.1 % DO Christopher Arapahoe Work Phone: [facility] 05-21-2023 13:30-0400 Body height 170.18 cm Agus Pedroza Other [facility] Other 05-21-2023 13:30-0400 Diastolic blood pressure 100 mm[Hg] Agus Yovany Other [facility] Other 05-21-2023 13:30-0400 SaO2% (BldA) [Mass fraction] 98 % Agus Yovany Other [facility] Other 05-21-2023 13:30-0400 Systolic blood pressure 160 mm[Hg] Agus Yovany Other [facility] Other 04-18-2023 16:35-0400 Body temperature 98.3 [degF] DO Fadi House Work Phone: [facility] 04-18-2023 16:35-0400 Diastolic blood pressure 86 mm[Hg] DO Fadi House Work Phone: [facility] 04-18-2023 16:35-0400 Heart rate 89 /min DO Fadi House Work Phone: [facility] 04-18-2023 16:35-0400 Respiratory rate 16 /min DO Fadi House Work Phone: [facility] 04-18-2023 16:35-0400 SaO2% (BldA) [Mass fraction] 97 % DO Fadi House Work Phone: [facility] 04-18-2023 16:35-0400 Systolic blood pressure 131 mm[Hg] DO Fadi House Work Phone: [facility] 04-18-2023 06:00-0400 Body weight 104.6 kg DO Fadi House Work Phone: [facility] 04-18-2023 04:00-0400 Inhaled oxygen flow rate 2 L/min DO Fadi House Work Phone: [facility] 04-16-2023 11:15-0400 Body height 167.64 cm DO Fadi House Work Phone: [facility] 05-16-2022 14:30-0400 Body height 170.18 cm Tondra Mapus Other [facility] Other 05-16-2022 14:30-0400 Diastolic blood pressure 108 mm[Hg] Tondra Mapus Other [facility] Other 05-16-2022 14:30-0400 Respiratory rate 18 /min Tondra Mapus Other [facility] Other 05-16-2022 14:30-0400 SaO2% (BldA) [Mass fraction] 98 % Tondra Mapus Other [facility] Other 05-16-2022 14:30-0400 Systolic blood pressure 155 mm[Hg] Tondra Mapus Other [facility] Other 04-22-2022 00:30-0400 Diastolic blood pressure 64 mm[Hg] DO Fadi House Work Phone: [facility] 04-22-2022 00:30-0400 Heart rate 82 /min DO Fadi House Work Phone: [facility] 04-22-2022 00:30-0400 Respiratory rate 18 /min DO Fadi House Work Phone: [facility] 04-22-2022 00:30-0400 SaO2% (BldA) [Mass fraction] 100 % DO Fadi House Work Phone: [facility] 04-22-2022 00:30-0400 Systolic blood pressure 129 mm[Hg] DO Fadi House Work Phone: [facility] 04-21-2022 21:09-0400 Body height 167.64 cm DO Fadi House Work Phone: [facility] 04-21-2022 21:09-0400 Body mass index (BMI) [Ratio] 37.1 kg/m2 DO Fadi House Work Phone: [facility] 04-21-2022 21:09-0400 Body temperature 97.8 [degF] DO Fadi House Work Phone: [facility] 04-21-2022 21:09-0400 Body weight 104.32 kg DO Fadi House Work Phone: [facility] 03-07-2022 11:50-0400 Diastolic blood pressure 80 mm[Hg] Fadi P House Work Phone: [facility] [address] DO Work Phone: 03-07-2022 11:50-0400 Heart rate 84 /min Fadi P House Work Phone: [facility] DO Work Phone: 03-07-2022 11:50-0400 Systolic blood pressure 100 mm[Hg] Fadi P House Work Phone: [facility] DO Work Phone: 02-14-2022 14:41-0400 Body height 167.64 cm Fadi P House Work Phone: [facility] DO Work Phone: 02-14-2022 14:41-0400 Body mass index (BMI) [Ratio] 36.64 kg/m2 Fadi P House Work Phone: [facility] DO Work Phone: 02-14-2022 14:41-0400 Body surface area Derived from formula 2.11 m2 Fadi P House Work Phone: [facility] DO Work Phone: 02-14-2022 14:41-0400 Body weight 102.97 kg Fadi P House Work Phone: [facility] DO Work Phone: 02-14-2022 14:41-0400 Diastolic blood pressure 90 mm[Hg] Fadi P House Work Phone: [facility] DO Work Phone: 02-14-2022 14:41-0400 Heart rate 84 /min Fadi P House Work Phone: [facility] DO Work Phone: 02-14-2022 14:41-0400 Systolic blood pressure 160 mm[Hg] Fadi P House Work Phone: [facility] DO Work Phone: 02-14-2022 14:41-0400 8 1 Fadi P House Work Phone: [facility] DO Work Phone: Comment on above: PHQ-9 TS 02-06-2022 12:00-0400 Body height 170.18 cm Tondra Mapus Other [facility] Other 02-06-2022 12:00-0400 Body mass index (BMI) [Ratio] 36.33 kg/m2 Tondra Mapus Other [facility] Other 02-06-2022 12:00-0400 Body weight 105.24 kg Tondra Mapus Other [facility] Other 01-22-2022 11:15-0400 Body height 170.18 cm Tondra Mapus Other [facility] Other 01-22-2022 11:15-0400 Body mass index (BMI) [Ratio] 36.65 kg/m2 Tondra Mapus Other [facility] Other 01-22-2022 11:15-0400 Body weight 106.14 kg Tondra Mapus Other [facility] Other 01-22-2022 11:15-0400 Diastolic blood pressure 84 mm[Hg] Tondra Mapus Other [facility] Other 01-22-2022 11:15-0400 Respiratory rate 20 /min Tondra Mapus Other [facility] Other 01-22-2022 11:15-0400 SaO2% (BldA) [Mass fraction] 99 % Tondra Mapus Other [facility] Other 01-22-2022 11:15-0400 Systolic blood pressure 136 mm[Hg] Tondra Mapus Other [facility] Other 01-19-2022 15:45-0400 Body height 170.18 cm Fadi P House [facility] Phone[facility] DO Work Phone: 01-19-2022 15:45-0400 Diastolic blood pressure 106 mm[Hg] Fadi P House Work Phone: [facility] DO Work Phone: 01-19-2022 15:45-0400 Heart rate 76 /min Fadi P House Work Phone: [facility] DO Work Phone: 01-19-2022 15:45-0400 Systolic blood pressure 184 mm[Hg] Fadi P House Work Phone: [facility] DO Work Phone: 01-19-2022 15:45-0400 12 1 Fadi P House Work Phone: [facility] DO Work Phone: Comment on above: PHQ-9 TS 01-12-2022 11:50-0400 Body temperature 97.5 [degF] DO Fadi House Work Phone: [facility] 01-12-2022 11:50-0400 Diastolic blood pressure 91 mm[Hg] DO Fadi House Work Phone: [facility] 01-12-2022 11:50-0400 Heart rate 82 /min DO Fadi House Work Phone: [facility] 01-12-2022 11:50-0400 Respiratory rate 20 /min DO Fadi House Work Phone: [facility] 01-12-2022 11:50-0400 SaO2% (BldA) [Mass fraction] 98 % DO Fadi House Work Phone: [facility] 01-12-2022 11:50-0400 Systolic blood pressure 151 mm[Hg] DO Fadi House Work Phone: [facility] 01-12-2022 05:51-0400 Body weight 104.8 kg DO Fadi House Work Phone: [facility] 01-11-2022 15:11-0400 Body height 167.64 cm DO Fadi House Work Phone: [facility] 01-11-2022 11:13-0400 Inhaled oxygen flow rate 2.5 L/min DO Fadi House Work Phone: [facility] 01-10-2022 22:17-0400 Body mass index (BMI) [Ratio] 37.1 kg/m2 DO Fadi Tenorio Work Phone: [facility] 01-10-2022 20:30-0400 Diastolic blood pressure 72 mm[Hg] DO Fadi Tenorio Work Phone: [facility] 01-10-2022 20:30-0400 Heart rate 90 /min DO Fadi Tenorio Work Phone: [facility] 01-10-2022 20:30-0400 Respiratory rate 18 /min DO Fadi Tenorio Work Phone: [facility] 01-10-2022 20:30-0400 SaO2% (BldA) [Mass fraction] 96 % DO Fadi Tenorio Work Phone: [facility] 01-10-2022 20:30-0400 Systolic blood pressure 151 mm[Hg] DO Fadi Tenorio Work Phone: [facility] 01-10-2022 13:34-0400 Body height 167.64 cm DO Fadi Tenorio Work Phone: [facility] 01-10-2022 13:34-0400 Body mass index (BMI) [Ratio] 37.1 kg/m2 DO Fadi Tenorio Work Phone: [facility] 01-10-2022 13:34-0400 Body temperature 97.8 [degF] DO Fadi Tenorio Work Phone: [facility] 01-10-2022 13:34-0400 Body weight 104.32 kg DO Fadi Tenorio Work Phone: [facility] 01-02-2022 14:30-0400 Body height 170.18 cm Agus Pedroza Other [facility] Other 01-02-2022 14:30-0400 Diastolic blood pressure 88 mm[Hg] Agus Pedroza Other [facility] Other 01-02-2022 14:30-0400 SaO2% (BldA) [Mass fraction] 99 % Agus Pedroza Other [facility] Other 01-02-2022 14:30-0400 Systolic blood pressure 120 mm[Hg] Agus Pedroza Other [facility] Other 08-29-2021 15:30-0500 Body height 170.18 cm Nury Martin Other [facility] Other 07-10-2021 14:00-0400 Body height 170.18 cm Same Jimmyjohnnyninomaria teresa Other [employer] Other 07-10-2021 14:00-0400 Diastolic blood pressure 80 mm[Hg] Same Jimmykalla Other [facility] Other 07-10-2021 14:00-0400 SaO2% (BldA) [Mass fraction] 99 % Same Jimmyjohnnylla Other [facility] Other 07-10-2021 14:00-0400 Systolic blood pressure 130 mm[Hg] Same Rijermainekalla Other [facility] Other 12-29-2020 08:20-0400 Pulse (Heart Rate) 85 /min [employer] Phone: 12-29-2020 08:10-0400 Body Temperature 98.1 [degF] [employer] Phone: 12-29-2020 08:10-0400 BP Diastolic 79 mm[Hg] [employer] Phone: 12-29-2020 08:10-0400 BP Systolic 155 mm[Hg] [employer] Work Phone: 12-29-2020 08:10-0400 Pulse Oximetry 100 % [employer] Work Phone: 12-29-2020 08:10-0400 Respiratory Rate 18 /min [employer] Work Phone: 12-28-2020 11:45-0400 BMI (Body Mass Index) 47.45 kg/m2 [employer] Work Phone: 12-28-2020 11:45-0400 Body weight 133.36 kg [employer] Work Phone: 12-28-2020 11:45-0400 Height 167.6 cm [employer] Work Phone: Encounters Encounter Date Encounter Type Care Provider Facility Start: 11-06-2023 ambulatory UNKNOWN PROVIDER Facili ty: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 Start: 08-02-2023 End: 08-03-2023 Evaluation and management of inpatient DO Christopher Santiago Work Phone: [facility] Work Phone: Start: 08-02-2023 End: 08-03-2023 observation encounter DO Christopher Arapahoe Work Phone: [facility] Work Phone: Start: 08-02-2023 Non-patient / Non-visit DO Ramos on [place]oe Work Phone: [facility] Start: 07-25-2023 End: 07-26-2023 ambulatory FADI TENORIO Facility:[facility] Start: 07-24-2023 End: 07-24-2023 ambulatory UNKNOWN PROVIDER Facility: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, unspecified proliferative retinopathy type (HCC) (Primary Dx) Start: 2023 End: 07-12-2023 ambulatory FADI TENORIO Facility:[facility] Start: 06-26-2023 End: 09-25-2023 ambulatory UNKNOWN PROVIDER [facility] Start: 06-26-2023 End: 06-26-2023 Office outpatient visit 15 minutes Demetri Frank MD Work Phone: [facility] Comment on above: 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, unspecified proliferative retinopathy type (HCC) (Primary Dx) Start: 06-20-2023 End: 06-20-2023 ambulatory Tondra Mapus Other [facility] Other Start: 06-20-2023 Telephone encounter Tondra Mapus [facility] Start: 05-21-2023 End: 05-21-2023 ambulatory Agus Pedroza Other [employer] Other Start: 05-21-2023 Office outpatient ne w 30 minutes Agus Pedroza [facility] Start: 05-07-2023 End: 05-07-2023 ambulatory Tondra Mapus Other [employer] Other Start: 05-07-2023 Telephone encounter Tondra Das [facility] Start: 04-16-2023 End: 04-18-2023 Evaluation and management of inpatient Fadi Tenorio Facility:[facility] Start: 04-15-2023 End: 04-18-2023 Evaluation and management of inpatient DO Fadi Tenorio Work Phone: [facility] [place] [facility] Work Phone: Start: 04-11-2023 End: 04-11-2023 ambulatory Eliud Eve Other [employer] Other Start: 04-11-2023 Telephone encounter Eliud Eve [facility] Start: 04-10-2023 End: 04-10-2023 ambulatory Eliud Eve Other [employer] Other Start: 04-10-2023 Telephone encounter Eliud Eve [facility] Start: 03-03-2023 End: 03-09-2023 Evaluation and management of inpatient DR MURRAY YEBOAH Facility:[facility] Start: 02-04-2023 Rx Renewal Fadi P Hous e Work Phone: [facility] [address] DO Work Phone: Start: 01-31-2023 End: 01-31-2023 ambulatory FADI TENORIO Facility:[facility] Start: 01-21-2023 End: 01-21-2023 ambulatory Tondra Shayneus Other [employer] Other Start: 01-21-2023 Telephone encounter Tondra Shayneus [facility] Start: 01-15-2023 End: 01-15-2023 ambulatory Fadi Tenorio [employer] Other Start: 01-15-2023 Telephone encounter Tondra Mapus [facility] Start: 01-11-2023 End: 01-11-2023 ambulatory Tondra Mapus Other [employer] Other Start: 01-11-2023 Telephone encounter Tondra Mapus [facility] Start: 01-01-2023 End: 01-01-2023 ambulatory UNKNOWN PROVIDER [employer] Other Start: 01-01-2023 Telephone encounter Tondra Mapus [facility] Start: 12-19-2022 End: 12-19-2022 ambulatory UNKNOWN PROVIDER Facility: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, unspecified proliferative retinopathy type (HCC) (Primary Dx) Start: 10-03-2022 End: 10-04-2022 Evaluation and management of inpatient DR FADI TENORIO Facility: Start: 10-01-2022 End: 10-01-2022 ambulatory Tondra Mapus Other [facility] Other Start: 10-01-2022 Telephone encounter Tondra Mapus [facility] Start: 09-03-2022 End: 09-03-2022 ambulatory VJ HADDAD II Facility:[facility] Start: 09-03-2022 Encounter for genera l adult medical examination without abnormal findings VJ HADDAD II [facility] Start: 09-03-2022 End: 09-03-2022 Patient encounter procedure Vj Haddad OD Work Phone: Optometry Comment on above: Disability examinati on (Primary Dx); 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, unspecified whether bed bug exterminator insulin use (HCC); Type 2 diabetes mellitus with proliferative diabetic retinopathy of left eye without macular edema, unspecified whether bed bug exterminator insulin use (HCC); Myopia, bilateral; Regular astigmatism, bilateral; Presbyopia Start: 08-28-2022 End: 08-28-2022 ambulatory Tondra Mapus Other [facility] Other Start: 08-28-2022 Telephone encounter Tondra Mapus [facility] Start: 08-27-2022 End: 08-27-2022 ambulatory Tondra Mapus Other [employer] Other Start: 08-27-2022 Telephone encounter Tondra Mapus [facility] Start: 08-16-2022 End: 08-16-2022 ambulatory Tondra Mapus Other [facility] Other Start: 08-16-2022 Telephone encounter Tondra Mapus [facility] Start: 07-31-2022 End: 07-31-[address] FADI TENORIO Facility: Start: 05-16-2022 (DM) Diabetes Tondra Mapus [facility] Start: 05-16-2022 End: 05-16-2022 ambulatory Tondra Mapus Other [employer] Other Start: 04-21-2022 End: 04-22-2022 Emergency department patient visit DO Fadi Tenorio Work Phone: [facility] Start: 04-18-2022 End: 04-18-2022 ambulatory Tondra Mapus Other [employer] Other Start: 04-18-2022 Telephone encounter Tondra Mapus [facility] Start: 03-21-2022 End: 03-21-2022 Office outpatient visit 15 minutes Demetri Frank MD Work Phone: [facility] Comment on above: 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, unspecified proliferative retinopathy type (HCC) (Primary Dx) Start: 03-13-2022 End: 03-13-2022 ambulatory Tondra Mapus Other [facility] Other Start: 03-13-2022 Telephone encounter Tondra Mapus [facility] Start: 03-08-2022 Registered Recurring DO Carlos A ahmadi House [facility] [employer] [facility] [employer] [facility] Start: 03-08-2022 (RD) Contingents Supervisor Jazzmine Dukes [facility] Start: 03-08-2022 End: 03-08-2022 ambulatory Jazzmine Dukes Other [employer] Other Start: 03-07-2022 End: 03-07-2022 ambulatory Tondra Mapus Other [employer] Other Start: 03-07-2022 Telephone encounter Tondra Mapus [facility] Start: 03-07-2022 Office outpatient vi sit 15 minutes Fadi Neves House Work Phone: [place] [address] DO Work Phone: Start: 02-19-2022 End: 02-19-2022 ambulatory Tondra Mapus Other [employer] Other Start: 02-19-2022 Telephone encounter Tondra Mapus [facility] Start: 02-14-2022 End: 02-14-2022 ambulatory Tondra Mapus Other [employer] Other Start: 02-14-2022 Telephone encounter Tondra Mapus [facility] Start: 02-12-2022 Telephone encounter Agustin arzate MD Work Phone: [facility] Comment on above: Other sympt/complt o f eye Start: 02-06-2022 End: 02-06-2022 ambulatory Tondra Mapus Other [employer] Other Start: 02-06-2022 Nursing evaluation o f patient and report Tondra Mapus [facility] Start: 02-06-2022 Registered Recurring DO Carlos A s House Work Phone: [facility] Start: 01-26-2022 End: 01-26-2022 ambulatory Tondra Mapus Other [employer] Other Start: 01-26-2022 Nursing evaluation o f patient and report Tondra Mapus [facility] Start: 01-22-2022 (DM) Diabetes Tondra Mapus [facility] Start: 01-22-2022 End: 01-22-2022 ambulatory Tondra Mapus Other [employer] Other Start: 01-19-2022 Tobacco use cessatio n intermediate 3-10 minutes Fadi P House Work Phone: [facility] [address] DO Work Phone: Start: 01-11-2022 End: 01-12-2022 Evaluation and management of inpatient DO Fadi House Work Phone: [facility] [place] [facility] Start: 01-10-2022 End: 01-12-2022 Evaluation and management of inpatient DO Fadi House Work Phone: [facility] [place] [facility] Start: 01-02-2022 End: 01-02-2022 ambulatory Agus Pedroza Other [employer] Other Start: 01-02-2022 Office outpatient vi sit 10 minutes Agus Pedroza [facility] Start: 08-29-2021 End: 08-29-2021 ambulatory Nury Murrayy Other [employer] Other Start: 08-29-2021 Office outpatient vi sit 15 minutes Nury Rossyntsarah beth [facility] Start: 08-09-2021 End: 08-09-2021 ambulatory Mika Das Other [employer] Other Start: 08-09-2021 Telephone encounter Mika Watson [facility] Start: 07-21-2021 End: 07-21-2021 ambulatory Mika Das Other [employer] Other Start: 07-21-2021 Telephone encounter Mika Watson [facility] Start: 07-20-2021 [facility] Start: 07-10-2021 Office outpatient vi sit [address] [facility] Start: 12-28-2020 End: 12-29-2020 Evaluation and management of inpatient SR FADI Edinson CO[facility] Start: 12-28-2020 End: 12-28-2020 Patient encounter procedure [facility] Start: 12-28-2020 End: 12-29-2020 Evaluation and management of inpatient Kole Koehler Work Phone: [facility] Telemetry Comment on above: Peripheral vascular occlusive disease (HCC) (Primary Dx); Renal insufficiency Start: 12-28-2020 End: 12-28-2020 Subsequent hospital visit by physician Virginia Pittman Work Phone: Cardiac Cath Services Comment on above: Arrived Start: 12-20-2020 End: 12-23-2020 [facility] Start: 12-20-2020 End: 12-22-2020 Subsequent hospital visit by physician [address] Room [address] [facility] [address] Scan Comment on above: 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) Start: 01-08-2019 End: 01-08-2019 Patient encounter procedure Fatoumata HCirilo Frankchidi [facility] Start: 12-30-2018 End: 12-31-2018 Patient encounter procedure Fatoumata YbarraCirilo Frankronadaiana [facility] Procedures Date Procedure Procedure Detail Performing Clinician [...] abdomen and pe lvis without contrast DO [facility] Work Phone: Start: 01-08-2023 Computerized ophthal yomi imaging retina Maddie Lau MD Work Phone: Start: 01-01-2023 End: 01-08-2023 [facility] medical xm&eval comprhnsv estab pt 1/> Diabetes mellitus with insulin therapy (HCC) Mail Handler Sorter Comment on above: Diabetes mellitus wi th [...] 01-11-2022 CL LHC & COR Angio DO [facility] Work Phone: Start: 01-10-2022 Duplex scan of lower limb veins DO [facility] Work Phone: Start: 01-10-2022 CT of head without contrast DO [facility] Work Phone: Start: 01-10-2022 SARS Antigen (LFIA) DO [facility] Work Phone: Start: 01-10-2022 Plain chest X-ray DO [facility] Work Phone: Start: 12-29-2020 Gluc bld gluc mntr d ev cleared fda spec home use Unknown Provider Result Start: 12-29-2020 WOUND OSTOMY EVAL AND TREAT [facility] Work Phone: Start: 12-29-2020 Gluc bld [...] Start: 10-14-2011 Total colonoscopy Charl es P [facility] Work Phone: Amputation of lower limb Neeta rles P [employer] Work Phone: Placement of stent i n coronary artery Fadi P [employer] Work Phone: Surgical procedure Fadi P [employer] Work Phone: Plan of Treatment Date Care Activity Detail Author Start: 04-09-2026 DTaP/Tdap/Td vaccine (2 - Td) DTaP/Tdap/Td vaccine (2 - Td) [facility] [employer] Work Phone: Start: 04-09-2026 Tetanus vaccination [facility] Start: 12-14-2024 LIPID SCREEN LIPID SCREEN [facility] Start: 11-06-2024 Glaucoma [facility] Start: 09-11-2024 Glaucoma screening Eye Exam [facility] Start: 08-03-2024 Creatinine measurement Basic Metabol ic Panel [facility] Start: 08-02-2024 Lipid panel Lipid Profile [facility] Start: 07-24-2024 Diabetic retinal eye exam Eye Exam [facility] Start: 06-06-2024 Creatinine measurement Basic Metabol ic Panel [facility] Start: 05-27-2024 Lipid panel Lipid Profile [facility] Start: 02-21-2024 Diabetic retinal eye exam Eye Exam [facility] Start: 02-01-2024 Hemoglobin A1c measurement Hemoglobin A1C [facility] Start: 12-20-2023 Diabetic retinal eye exam Eye Exam [facility] Start: 11-29-2023 Hemoglobin A1c measurement Hemoglobin A1C [facility] Start: 11-06-2023 End: 11-06-2023 Patient encounter procedure 11/06/2023 3:00 PM EST [facility] [address] [place] [address] Demetri Frank MD [address] [place] [address] Biology Research Assistant, Eye [facility] Start: 10-17-2023 Diabetic retinal eye exam Eye Exam [facility] Start: 09-11-2023 End: 09-11-2023 Patient encounter procedure 09/11/2023 3:00 PM EST Office Visit [facility] [address] [place] [address] Demetri Frank MD [address] [place] [address] Biology Research Assistant, Eye [facility] Start: 08-06-2023 Basic metabolic 2000 panel - Serum or Plasma Basic Metabolic Panel [facility] Start: 08-03-2023 Patient status observation [facility] Start: 08-03-2023 Patient discharge [facility] Start: 08-02-2023 Bacteria identified in Blood by Culture Blood Culture [facility] Start: 08-02-2023 Microbial culture Blood Culture [facility] Start: 08-02-2023 Evaluation procedure [facility] Start: 08-02-2023 Hospital admission [facility] Start: 08-02-2023 [facility] Start: 08-02-2023 [facility] Start: 08-02-2023 EKG 12 channel panel [facility] Start: 08-02-2023 Administrative procedure [facility] Start: 06-14-2023 Influenza vaccination Influenza Vacc ine (#1) [facility] Start: 04-18-2023 [facility] Start: 04-18-2023 [facility] Start: 04-16-2023 Referral to life guard [facility] Start: 04-16-2023 Hospital admission [facility] Start: 04-15-2023 Sleep disorder assessment [facility] Start: 04-03-2023 Hemoglobin A1c measurement Hemoglobin A1C [facility] Start: 03-21-2023 Diabetic retinal eye exam Eye Exam [facility] Start: 02-20-2023 End: 02-20-2023 Patient encounter procedure 02/20/2023 Office Visit Ophthalmology Demetri Frank MD [address] [place] [address] Biology Research Assistant, [facility] Start: 01-11-2023 Lipid panel Lipid Profile [facility] Start: 10-20-2022 Diabetic retinal eye exam Eye Exam [facility] Start: 07-28-2022 Basic metabolic 2000 panel - Serum or Plasma Basic Metabolic Panel [facility] Start: 07-14-2022 Influenza vaccination Influenza Vacc ine (#1) [facility] Start: 07-13-2022 Hemoglobin A1c measurement Hemoglobin A1C [facility] Start: 06-14-2022 Influenza vaccination INFLUENZA (#1) [facility] Start: 05-02-2022 End: 05-02-2022 Patient encounter procedure 05/02/2022 Office Visit Ophthalmology Demetri Frank MD [address] [place] [address] Biology Research Assistant, [facility] Start: 04-21-2022 Plain chest X-ray XR chest 2V* [facility] Start: 04-18-2022 FUV, Provider: Aicha Terrazas, Status: Pen, Time: 2:30 PM FUV, Provider: Aicha Terrazas, Status: Pen, Time: 2:30 PM -[facility] [facility] DO Work Phone: Start: 03-21-2022 End: 03-21-2022 Patient encounter procedure 03/21/2022 Office Visit Ophthalmology Demetri Frank MD [address] [place] [address] [facility] Start: 02-12-2022 FUV, Provider: Aicha Terrazas, Status: Pen, Time: 1:00 PM FUV, Provider: Aicha Terrazas, Status: Pen, Time: 1:00 PM [facility] [address] DO Work Phone: Start: 01-20-2022 Hemoglobin A1c measurement Hemoglobin A1C [facility] Start: 01-10-2022 Duplex scan of lower limb veins US venous duplex LE BI [facility] Start: 01-10-2022 Fluoroscopy of Left Heart using Low Osmolar Contrast Fluoroscopy of Left Heart using Low Osmolar Contrast [facility] Start: 01-10-2022 Fluoroscopy of Multi ple Coronary Arteries using Low Osmolar Contrast Fluoroscopy of Multiple Coronary Arteries using Low Osmolar Contrast [facility] Start: 01-10-2022 Measurement of Cardi ac Sampling and Pressure, Left Heart, Percutaneous Approach Measurement of Cardiac Sampling and Pressure, Left Heart, Percutaneous Approach [facility] Start: 12-29-2021 Creatinine measurement Creatinine mo [facility] [employer] Work Phone: Start: 12-29-2021 Potassium monitoring [facility] [employer] Phone: Start: 10-14-2021 DEPRESSION ASSESSMENT DEPRESSION ASS ESSMENT [facility] Start: 2021 Measurement of occul t blood in single stool specimen FIT [facility] Start: 2021 Screening for malign ant neoplasm of colon CRC Screening [facility] Start: 2021 Shingles (RZV) Vacci ne (1 of 2) Shingles (RZV) Vaccine (1 of 2) [facility] Start: 2021 SHINGRIX VACCINE (1 of 2) SHINGRIX VACCINE (1 of 2) [facility] Start: 12-28-2020 End: 12-28-2020 Appointment 12/28/2020 Appointment IP Unit [facility] Start: 12-14-2020 Lipid panel Lipid Profile [facility] Start: 2016 COLOGUARD (FIT-DNA) COLOGUARD (FIT-D NA) [facility] Start: 2016 Colonoscopy COLONOSCOPY [facility] Start: 2016 COLORECTAL CANCER SCREENING COLORECTAL CANCER SCREENING [facility] Start: [address] COLONOGRAPHY [facility] Start: 2016 DIABETES SCREEN DIABETES SCREEN [facility] Start: 2016 FECAL OCCULT BLOOD FECAL OCCULT BLOO D [facility] Start: 2016 Screening for malign ant neoplasm of colon [facility] Start: 2016 SIGMOIDOSCOPY SIGMOIDOSCOPY [facility] Start: 2011 Diabetes screen Diabetes screen [facility] Work Phone: Start: 2011 Lipid panel Lipid screen [facility] Work Phone: Start: 1990 Hepatitis B vaccination Hepati tis B (HBV) Vaccine (1 of 3 - Risk 3-dose series) [facility] Start: 1990 Urine microalbumin profile DTAP,TDAP,TD (1 - Tdap) [facility] Start: 1989 Hepatitis C screening Hepatitis C An tibody [facility] Start: 1989 HEPATITIS C SCREENING HEPATITIS C SC REENING [facility] Start: 1989 HIV SCREENING HIV SCREENING [facility] Start: 1986 HIV screening [facility] Start: 1981 Lipid panel Lipid screen [facility] Work Phone: Start: 1977 PNEUMOCOCCAL (1 - PCV) PNEUMOCOCCAL (1 - PCV) [facility] Start: 1977 Pneumococcal vaccination Pneum ococcal Vaccine(s) (1 - PCV) [facility] Start: 1976 COVID-19 Vaccine (#1) COVID-19 Vacci ne (#1) [facility] Start: 1976 COVID-19 Vaccine (1) COVID-19 Vaccin e (1) [facility] Start: 01-09-1972 COVID-19 VACCINE (#1) COVID-19 VACCI NE (#1) [facility] Start: 1971 Urine screening for protein Microalbumin [facility] Start: 1971 Diabetic foot examination Foot Exam [facility] Start: 1971 HEPATITIS B (1 of 3 - 3-dose series) HEPATITIS B (1 of 3 - 3-dose series) [facility] Start: 1971 Hepatitis B vaccination Hepati tis B (HBV) Vaccine (1 of 3 - 3-dose series) [facility] Start: 1971 Hepatitis C screening Hepatitis C sc reen [employer] Phone: Start: 1971 Screening for malign ant neoplasm of colon Colonoscopy [facility] Bacteria identified in Unspecified specimen by Anaerobe+Aerobe culture [facility] End: 12-28-2020 Basic metabolic 2000 panel Basic Metabolic Panel Lab Routine One Time for 1 Occurrences starting 12/28/2020 until 12/28/2020 [employer] Phone: Comment on above: One Time for 1 Occur rences starting 12/28/2020 until 12/28/2020 End: 12-28-2020 Catheterization and angiography procedure details panel Diagnostic Cardiac Ton Cylinder Inspector Procedure Cardiac Cath Routine One Time for 1 Occurrences starting 12/28/2020 until 12/28/2020 [employer] Phone: Comment on above: One Time for 1 Occur rences starting 12/28/2020 until 12/28/2020 End: 12-28-2020 CBC CBC Lab Routine One Time for 1 Occurrences starting 12/28/2020 until 12/28/2020 [employer] Phone: Comment on above: One Time for 1 Occur rences starting 12/28/2020 until 12/28/2020 Glucose measurement estimated from glycated hemoglobin [facility] Work Phone: Hemoglobin A1c/Hemoglobin.total in Blood [facility] Work Phone: IgA [Mass/volume] in Serum or Plasma [facility] IgG [Mass/volume] in Serum or Plasma [facility] IgM [Mass/volume] in Serum or Plasma [facility] Immunofixation for Urine Fir [facility] [place] light chains.f ree [Mass/volume] in Serum [facility] [place] light chains.free/Lambda light chains.free [Mass Ratio] in Serum [facility] Lambda light chains. free [Mass/volume] in Serum or Plasma [facility] OCT, RETINA - OU - B OTH EYES OCT, RETINA - OU - BOTH EYES Ophthalmology Routine Diabetes mellitus with insulin therapy (HCC) 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 to underlying condition (HCC) 01/01/2023 5:57 PM EDT [employer] Work Phone: Oxygen therapy [[facility] Data Set] Initiate Oxygen Therapy Protocol Respiratory Care Routine Daily until discontinued starting 12/28/2020 [employer] Work Phone: Comment on above: Daily until disconti nued starting 12/28/2020 Patient Education [facility] Work Phone: Patient referral [facility] Work Phone: End: 12-20-2020 POCT Creatinine POCT Creatinine Point of Care Testing Routine One Time for 1 Occurrences starting 12/20/2020 until 12/20/2020 [employer] Phone: Comment on above: One Time for 1 Occur rences starting 12/20/2020 until 12/20/2020 POCT Glucose [facility] Work Phone: Comment on above: As Needed until disc ontinued starting 12/28/2020 4X Daily (AC & HS) u ntil discontinued starting 12/28/2020 Serum immunofixation [facility] Thyrotropin [Units/volume] in Serum or Plasma [facility] Work Phone: Troponin I.cardiac [Mass/volume] in Serum or Plasma by High sensitivity method [facility] Work Phone: End: 12-28-2020 TYPE AND SCREEN TYPE AND SCREEN Blood Bank Routine One Time for 1 Occurrences starting 12/28/2020 until 12/28/2020 [employer] Phone: Comment on above: One Time for 1 Occur rences starting 12/28/2020 until 12/28/2020 Immunizations Immunization Date Immunization Notes Care Provider [facility] 08-02-2023 Hemoglobin A1C Demetri garland MD Work Phone: [facility] 05-29-2023 Hemoglobin A1C Demetri garland MD Work Phone: [facility] 10-03-2022 Hemoglobin A1C Demetri garland MD Work Phone: [facility] 05-16-2022 Hemoglobin A1C Demetri garland MD Work Phone: [facility] 01-10-2022 Hemoglobin A1C Demetri garland MD Work Phone: [facility] 07-22-2021 Hemoglobin A1C Agustin Hampton MD Work Phone: [facility] 10-14-2020 influenza, injectabl e, quadrivalent, contains preservative Agustin Hampton MD Work Phone: [facility] 10-14-2020 influenza virus vaccine, unspecified formulation Demetri Frank MD Work Phone: [facility] 10-01-2020 influenza, injectabl e, quadrivalent, preservative free Fadi Tenorio Work Phone: [place] [address] DO Work Phone: 12-23-2019 Influenza, injectabl e, Madin Dimock Canine Kidney, preservative free, quadrivalent DO Fadi Mooreland Work Phone: [facility] 04-09-2016 tetanus toxoid, reduced diphtheria toxoid, and acellular pertussis vaccine, adsorbed Fadi Edinson Mooreland Work Phone: [facility] Payers Date Payer Category Payer Medicare [id number] 2023 Medicare [id number] 2022 Unknown 2021 Self-pay [id number] 2020 Medicaid [id number] 2018 Private Health Insurance [id number] 1971 Unknown [id number] 2.16.84 0.1.760966.3.579.2.727 1971 Unknown [id number] 2.16.84 0.1.079128.3.579.2.727 1971 Unknown [id number] 2.16.8 40.1.175534.3.579.2.182 1971 Unknown [id number] 2.16.8 40.1.791168.3.579.2.182 1971 Unknown [id number] 2.16.8 40.1.044978.3.579.2.182 1971 Unknown [id number] 2.16.84 0.1.016612.3.579.2.593 1971 Unknown [id number] 2.16.84 0.1.596551.3.579.2.593 1971 Unknown [id number] 2.16.84 0.1.915360.3.579.2.593 1971 Unknown [id number] 2.16.84 0.1.431566.3.579.2.593 1971 Unknown [id number] 2.16.8 40.1.778398.3.579.2.718 1971 Unknown [id number] 2.16.8 40.1.530603.3.579.2.718 1971 Unknown [id number] 2.16. 840.1.568619.3.579.2.732 1971 Unknown [id number] 2.16. 840.1.745457.3.579.2.732 1971 Unknown [id number] 2.16. 840.1.073256.3.579.2.732 1971 Unknown [id number] 2.16. 840.1.209997.3.579.2.732 1971 Unknown [id number] 2.16. 840.1.199650.3.579.2.732 1971 Unknown [id number] 2.16. 840.1.801650.3.579.2.732 1959 Private Health Insurance [id number] 1.2.840.906727.1.13.239.2.7.3.909503.315 1959 Unknown [id number] Unknown [id number] Unknown [id number] 2.16. 840.1.816564.3.579.2.1149 Unknown [id number] 2.16. 840.1.834398.3.579.2.1149 Unknown [id number] 2.16. 840.1.866472.3.579.2.1149 Unknown [id number] 2.16. 840.1.461040.3.579.2.1149 Unknown [id number] 2.16.8 40.1.630345.3.579.2.531 Unknown [id number] 2.16.8 40.1.829717.3.579.2.531 Social History Date Type Detail Facility Start: 12-20-2020 Tobacco smoking status [facility] Unknown if ever smoked [facility] Start: 1970 Sex Assigned At Not on file [facility] Phone: Start: 08-24-2022 End: 09-03-2022 Exposure to SARS-CoV-2 (event) Not sure [employer] Phone: Start: 12-28-2020 End: 04-21-2022 Tobacco smoking status NHIS Former smoker [facility] Start: 12-28-2020 End: 09-03-2022 Tobacco use and exposure Never used [employer] Phone: Start: 12-28-2020 End: 09-03-2022 Alcohol intake Ex-drinker (finding) [employer] Work Phone: Start: 01-10-2022 End: 04-17-2023 Tobacco smoking status NHIS Smoker (finding) [facility] Start: 1970 Sex Assigned At Male F [facility] No illicit drug use No illicit drug use [facility] 250 DO Work Phone: Comment on above: coffee 1 big gulp - pop 4 daily; 1/2 ppd; Sex Assigned At [facility] [employer] Other Start: 09-03-2022 Tobacco smoking status NHIS Smokes tobacco daily [facility] History of tobacco use Cigarette Smoker [facility] Start: 08-02-2023 Tobacco smoking status NHIS Never smoker [facility] Start: 08-02-2023 Tobacco smoking status MEIS Current every day smoker [facility] Medical Equipment Procedure Code Equipment Code Equipment Origin al Text Equipment Identifier Dates USE WITH INSULIN FIVE TIMES DAILY AND NEEDED [id number] Start: 10-23-2020 TEST FIVE TIMES DAILY [id number] Start: 10-23-2020 Goals Date Patient Goal Desired Activity /State Functional Status Date Assessment Result Facility 04-18-2023 Functional status Patient at Baseline [facility] Work Phone: 02-14-2022 PHQ-9 [id number] Mild (5-9) [facility] 250 DO Work Phone: 01-19-2022 PHQ-9 [id number] Moderate (10-14) [facility] 250 DO Work Phone: 01-12-2022 Functional status Patient at Baseline [facility] Work Phone: Mental Status Date Assessment Result Facility 04-18-2023 Cognitive function Cognitive Sta tus Patient at Baseline [facility] Work Phone: 01-12-2022 Cognitive function Cognitive Sta tus Patient at Baseline [facility] Work Phone: Clinical Notes 07-10-2021 to 10-17-2023 Note Date & Type Note Facility 10-17-2023 Note Entered by MURRAY TENORIO DO on October 17, 2023 16:37:15 EST From: FADI TENORIO DO To: [facility] Sent: 10/17/2023 16:37:15 EST Subject: Medication Management Submitted: Complete:tamsulosin (tamsulosin 0.4 mg oral capsule) Signed by FADI TENORIO DO 10/17/2023 16:37:00 EST Submitted: Complete:bumetanide (bumetanide 2 mg oral tablet) Signed by FADI TENORIO DO 10/17/2023 16:37:00 EST Submitted: Complete:potassium chloride (Potassium Chloride (Ptx-Tmcx-Tsz M20) 20 mEq oral tablet, extended release) Signed by FADI TENORIO DO 10/17/2023 16:37:00 EST Approved with modifications: bumetanide (Bumetanide 2MG TABS) TAKE 1 TABLET BY MOUTH TWICE A DAY BEFORE MEALS Qty: 56 tab(s) Days Supply: 28 Refills: 2 Substitutions Allowed Route To Pharmacy [facility] Note from Pharmacy: Maximum Refills Reached Approved with modifications: potassium chloride (Potassium Chloride Ria ER 20MEQ TBCR) TAKE 1 TABLET BY MOUTH EVERY MORNING Qty: 28 tab(s) Days Supply: 28 Refills: 2 Substitutions Allowed Route To [facility] Note from Pharmacy: Maximum Refills Reached Approved with modifications: tamsulosin (Tamsulosin HCl 0.4MG CAPS) TAKE 1 CAPSULE BY MOUTH AT BEDTIME Qty: 28 cap(s) Days Supply: 28 Refills: 2 Substitutions Allowed Route To [facility] Note from Pharmacy: Maximum Refills Reached From: [facility] To: FADI TENORIO DO Sent: October 17, 2023 3:05:41 PM SILO OPERATOR Subject: Medication Management Due: October 18, 2023 12:03:12 AM SILO OPERATOR On Hold Pending Signature Drug: bumetanide (bumetanide [...] Pending Signature Drug: potassium chloride (Potassium Chloride (Gjz-Tirz-Wna M20) 20 mEq oral tablet, extended release), TAKE 1 TABLET BY MOUTH EVERY MORNING Quantity: 28 tab(s) Days Supply: 28 Refills: 0 Substitutions Allowed Notes from Pharmacy: Maximum Refills Reached-- this med was precribed during hospital stay, please send refill if appropriate Dispensed Drug: potassium chloride (Potassium Chloride (Kbw-Vjgv-Uvc M20) 20 mEq oral tablet, extended release), [...] Allowed Notes from Pharmacy: Maximum Refills Reached [facility] 09-17-2023 Evaluation note Encounter Date Diagnosis Assessment Notes Sep, 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 Discussed diligent skin monitoring for breakdown given history of revision due to postop complications at operative site. Sep, Muscle spasm (ICD-10 - M62.838) [employer] Other 11-29-2023 History of Present illness Narrative* [...] OU OCT mac OU documented in this [id number] NoteEntered by FADI TENORIO DO on August 28, 2023 09:11:44 EST From: FADI TENORIO DO To: [facility] Sent: 08/28/2023 09:11:44 EST Subject: Medication Management Documented Complete:potassium chloride (Potassium Chloride (Zod-Ernz-Ema M20) 20 mEq oral tablet, extended release) [...] 28 Refills: 0 Substitutions Allowed Route To [facility] Note from Pharmacy: Maximum Refills Reached-this med was prescribed after a recent hospital stay, please send new rx if patient is to continue taking this medication- Thank you Approved bumetanide (Bumetanide 2MG TABS) TAKE 1 TABLET BY MOUTH TWICE A DAY BEFORE MEALS Qty: 56 tab(s) Days Supply: 28 Refills: 0 Substitutions Allowed Route To [facility] Note from Pharmacy: Maximum Refills Reached- this dose was given after hospital stay, please send refill if appropriate Approved potassium chloride (Potassium Chloride Ria ER 20MEQ TBCR) TAKE 1 TABLET BY MOUTH EVERY MORNING Qty: 28 tab(s) Days Supply: 28 Refills: 0 Substitutions Allowed Route To [facility] Note from Pharmacy: Maximum Refills Reached-- this med was precribed during hospital stay, please send refill if appropriate Patient matched by FADI TENORIO DO on 08/28/2023 09:11:04 EST From: [facility] - To: [facility] Sent: August 28, 2023 7:51:26 AM SILO OPERATOR Subject: Medication Management Due: August 29, 2023 12:10:43 AM SILO OPERATOR On Hold Pending Signature Drug: tamsulosin (tamsulosin [...] Pending Signature Drug: potassium chloride (Potassium Chloride (Ylk-Icda-Tkc M20) 20 mEq oral tablet, extended release), TAKE 1 TABLET BY MOUTH EVERY MORNING Quantity: 28 tab(s) Days Supply: 28 Refills: 0 Substitutions Allowed Notes from Pharmacy: Maximum Refills Reached- rx sent upon discharge from recent hospital stay, please send refill if appropriate Dispensed Drug: potassium chloride (Potassium Chloride (Rfc-Svbg-Tcv M20) 20 mEq oral tablet, extended release), TAKE 1 TABLET BY MOUTH EVERY MORNING Quantity: 28 tab(s) Days Supply: 28 Refills: 0 Substitutions Allowed Notes from Pharmacy: Maximum Refills Reached-- this med was precribed during hospital stay, please send refill if appropriate [id number] Discharge summary Author Harjeet Ruelas [facility] August 03, 2023 1:06pm Note Date/Time August 03, 2023 1 0:59am [place] [address] Discharge Summary Signed Patient: Chandler Minor MR#: [id number] : 1970 Acct: [id number] Age/Sex: 53 / M Date of [...] units. Patient reports that he came to [place] to see his mom. Patient reports chronic [...] or Physician's Assistantworking with me, had a Lmxz-qm-Tdag encounter. Based on my findings, the services [...] no hepatosplenomegaly, no rebound tenderness or guarding MAGNAFLUX OPERATOR?alert oriented x3, CN II to XII intact, [...] Lymph % (Auto) 12.2 L D Cancelled [place] % (Auto) 7.5 D Cancelled Eos % (Auto) 3.0 D Cancelled Baso % (Auto) 0.3 Cancelled Neut # (Auto) 7.89 H D Cancelled Lymph # (Auto) 1.26 D Cancelled [place] # (Auto) 0.77 D Cancelled Eos # [...] MPV Neut % (Auto) Lymph % (Auto) [place] % (Auto) Eos % (Auto) Baso % (Auto) Neut # (Auto) Lymph # (Auto) [place] # (Auto) Eos # (Auto) Baso # [...] MPV Neut % (Auto) Lymph % (Auto) [place] % (Auto) Eos % (Auto) Baso % (Auto) Neut # (Auto) Lymph # (Auto) [place] # (Auto) Eos # (Auto) Baso # [...] Breath Or Wheezing) fluticasone propionate 50 mcg/actuation [place],Suspension 2 spray INTRANASAL DAILY PRN (Reason: allergies) [...] Ruelas Documented By: Harjeet Ruelas M.D. 08/03/23 1059 Signed By: <Electronically signed by Harjeet Ruelas M.D.> 08/03/23 1301 [facility] Work Phone: 1(979) 466-636010-21-2023 [place] [id number] Discharge Summary Signed Patient: Chandler Minor MR#: [id number] : 1970 Acct: [id number] Age/Sex: 53 / M Date of Service: [...] units. Patient reports that he came to [place] to see his mom. Patient reports chronic [...] I, or a Nurse Practitioner or Physician's Vb Developer working with me, had a Zdwu-ep-Ryos encounter. Based on my findings, the services [...] no hepatosplenomegaly, no rebound tenderness or guarding MAGNAFLUX OPERATOR???alert oriented x3, CN II to XII intact, [...] Hct 34.3 L Canc (more content not included)...[facility] 08-03-2023 Hospital Discharge instructions Additional Instructions Please make an appointment with your PCP in 1 to 2 weeks Maint[facility] Phone: 1(287) 641-832710-20-2023 Consult note Author Marcelino Abel [facility] August 02, 2023 2:46pm Note Date/Time August 02, 2023 1 1:10am [facility] [place] [address] Neurology Consult Note Signed Patient: Chandler Minor MR#: [id number] : 1970 Acct: [id number] Age/Sex: 53 / M Date of [...] No Would like to be referred to Mental Health Coordinator for info?: No Smoking Status: Current [...] 87.4 H Lymph % (Auto) 6.3 L [place] % (Auto) 3.4 L Eos % (Auto) 2.0 Baso % (Auto) 0.3 Neut # (Auto) 12.71 H Lymph # (Auto) 0.92 [place] # (Auto) 0.50 Eos # (Auto) 0.29 [...] Color Urine Appearance Urine pH Ur Specific [place] Urine Protein Urine Glucose (UA) Urine Ketones [...] MPV Neut % (Auto) Lymph % (Auto) [place] % (Auto) Eos % (Auto) Baso % (Auto) Neut # (Auto) Lymph # (Auto) [place] # (Auto) Eos # (Auto) Baso # [...] Color Urine Appearance Urine pH Ur Specific [place] Urine Protein Urine Glucose (UA) Urine Ketones [...] MPV Neut % (Auto) Lymph % (Auto) [place] % (Auto) Eos % (Auto) Baso % (Auto) Neut # (Auto) Lymph # (Auto) [place] # (Auto) Eos # (Auto) Baso # [...] Color Urine Appearance Urine pH Ur Specific [place] Urine Protein Urine Glucose (UA) Urine Ketones [...] MPV Neut % (Auto) Lymph % (Auto) [place] % (Auto) Eos % (Auto) Baso % (Auto) Neut # (Auto) Lymph # (Auto) [place] # (Auto) Eos # (Auto) Baso # [...] Appearance Clear Urine pH 5.0 Ur Specific [place] 1.015 Urine Protein 300 A Urine Glucose [...] study as part of stroke work-up PT OT/COLLECTIONS REP Patient counseled about medication compliance, DASH diet, verbalized understanding Primary on board adjusting his insulin dosage. Rest of the management per primary team Documented By: Marcelino Abel M.D. 08/02/23 1107 Signed By: <Electronically signed by Marcelino Abel M.D.> 08/02/23 3506 [facility] Work Phone: 1(952) 694-879810-20-2023 History and physical note Author Harjeet Ruelas [facility] August 02, 2023 2:16pm Note Date/Time August 02, 2023 1 1:18am [place] [address] Internal Med History&Physical Signed Patient: Chandler Minor MR#: [id number] : 1970 Acct: [id number] Age/Sex: 53 / M Date of [...] micturition. Patient reports that he came to [place] to see his mom. Patient reports chronic [...] No Would like to be referred to Mental Health Coordinator for info?: No Smoking Status: Current [...] 08/02/23 08/02/23 History mL) subcutaneous pen injector (Immunovaccine 3-Crista) losartan 50 mg tablet 50 mg [...] no hepatosplenomegaly, no rebound tenderness or guarding MAGNAFLUX OPERATOR?alert oriented x3, CN II to XII intact, [...] (Clear) Urine pH 5.0 (<=7.5) Ur Specific [place] 1.015 (1.005-1.025) Urine Protein 300 A (Negative) [...] signed by Harjeet Ruelas M.D.> 08/02/23 1416 [facility] Work Phone: 1(675) 124-691810-20-2023 Progress note Author Christopher Santiago [facility] August 02, 2023 6:27am Note Date/Time August 02, 2023 4 :27am [place] [id number] Emergency Department Note Signed Patient: Chandler Minor MR#: [id number] : 1970 Acct: [id number] Age/Sex: 53 / M Date of [...] No Would like to be referred to Mental Health Coordinator for info?: No Smoking Status: Never [...] with prior history of right-sided BKA Neuro [place] Coma Scale: document GCS findings [place] Coma Scale Eye Opening: No response Daniel [...] highlighted in the diagnostics section of the [employer] record. Imaging studies reviewed and interpreted by myself and the radiologist. Radiology interpretations are found in the diagnostics section of the [employer] record. Lab Data 08/02/23 04:24 08/02/23 04:24 [...] Lymph % (Auto) 6.3 L (13.4-45.1) % [place] % (Auto) 3.4 L (4.0-12.7) % Eos % (Auto) 2.0 (0.0-5.8) % Baso % (Auto) 0.3 (0.0-1.3) % Neut # (Auto) 12.71 H (1.70-7.00) 10*3/uL Lymph # (Auto) 0.92 (0.80-3.30) 10*3/uL [place] # (Auto) 0.50 (0.30-0.90) 10*3/uL Eos # [...] (41.1-75.9) % Lymph % (Auto) (13.4-45.1) % [place] % (Auto) (4.0-12.7) % Eos % (Auto) (0.0-5.8) % Baso % (Auto) (0.0-1.3) % Neut # (Auto) (1.70-7.00) 10*3/uL Lymph # (Auto) (0.80-3.30) 10*3/uL [place] # (Auto) (0.30-0.90) 10*3/uL Eos # (Auto) [...] signed by Christopher Santiago D.O.> 08/02/23 0627 [facility] Work Phone: 1(378) 585-715610-20-2023 Progress note Author Christopher Santiago [facility] August 02, 2023 6:27am Note Date/Time August 02, 2023 4 :27am [place] [address] Emergency Department Note Signed Patient: Chandler Minor MR#: [id number] : 1970 Acct: [id number] Age/Sex: 53 / M Date of [...] Unobtainable: Yes unobtainable due to mental status [facility] Medical History (Updated 08/02/23 @ 05:23 by Christopher Santiago DO) Diabetes Social History Advance Directives: No Advance Directives Information Provided: No Advance Directives on File: No Would like to be referred to Mental Health Coordinator for info?: No Smoking Status: Never [...] Neuro Daniel Coma Scale: document GCS findings [place] Coma Scale Eye Opening: No response [place] coma scale verbal response: No response [place] Coma Scale Motor Response: Withdraws in response [...] highlighted in the diagnostics section of the [employer] record. Imaging studies reviewed and interpreted by myself and the radiologist. Radiology interpretations are found in the diagnostics section of the [employer] record. Lab Data 08/02/23 04:24 08/02/23 04:24 [...] Lymph % (Auto) 6.3 L (13.4-45.1) % [place] % (Auto) 3.4 L (4.0-12.7) % Eos % (Auto) 2.0 (0.0-5.8) % Baso % (Auto) 0.3 (0.0-1.3) % Neut # (Auto) 12.71 H (1.70-7.00) 10*3/uL Lymph # (Auto) 0.92 (0.80-3.30) 10*3/uL [place] # (Auto) 0.50 (0.30-0.90) 10*3/uL Eos # [...] (41.1-75.9) % Lymph % (Auto) (13.4-45.1) % [place] % (Auto) (4.0-12.7) % Eos % (Auto) (0.0-5.8) % Baso % (Auto) (0.0-1.3) % Neut # (Auto) (1.70-7.00) 10*3/uL Lymph # (Auto) (0.80-3.30) 10*3/uL [place] # (Auto) (0.30-0.90) 10*3/uL Eos # (Auto) [...] signed by Christopher Santiago D.O.> 08/02/23 0627 [facility] Work Phone: [phone] 600-1594490196-09-8796 NoteRight Eye Quality was good. Scan locations included subfoveal. Progression has improved. Findings include abnormal foveal contour. Left Eye Quality was poor.[id number] History of Present illness Narrative* Demetri Frank [...] OU OCT mac OU documented in this [id number] NoteRight Eye Quality was good. Scan locations included subfoveal. Progression has worsened. Findings include abnormal foveal contour, intraretinal fluid. Left Eye Quality was borderline. Scan locations included subfoveal. Progression has worsened. Findings include abnormal foveal contour, intraretinal fluid. [id number] History of Present illness Narrative* Demetri Frank MD - 06/26/2023 4:27 PM EDT Longstanding PDR OU, DME, mac ischemia OU Sp PRP OU, Repeated injections - last 10/2022 Did not notice any real improvement with injections [place] [id number] Vision worse per pt A/P 1. DM [...] OU OCT mac OU documented in this [id number] Evaluation note* Encounter Date Diagnosis Assessment Notes [...] medication. May, Muscle spasm (ICD-10 - M62.838) [facility] Other 07-06-2023 Progress note Author Nkechi [facility] April 18, 2023 10:57am Note Date/Time April 18, 2023 10:57 am [facility] [address] [place] [address] Nephrology Progress Note Signed Patient: Chandler Minor MR#: [id number] : 1970 Acct:[id number] Age/Sex: 52 / M Adm Date: 3 Loc: Room: [address] [place] [address] Type: ADM IN Attending Dr: Kameron Dos Santos DO Copies to: ~ Date of Service: 04/18/2023 Subjective Subjective Narrative: Mr. Minor is a 52-year-old white gentleman with history of DM 2, HTN, COPD and CKD stage III s/p right BKA. Patient was transferred from [facility] forelevated creatinine above the baseline 3.26 [...] the last 2 weeks. He presented to [facility] with generalized weakness. Creatinine was found to be 3.26 mg/dL as stated above. Patient was given 1 L of IV fluid and was transferred to [facility] for further evaluation. Patient denied [...] 10 Mg Tablet) 10 mg PO DAILY [facility] Stop: 04/15/24 13:39 Last Admin: 04/18/23 09:28 Dose: 10 mg Atorvastatin Calcium (Atorvastatin 40 Mg Tablet) 40 mg PO QPM [facility] Stop: 04/15/24 20:59 Last Admin: 04/17/23 20:42 Dose: 40 mg Bumetanide (Bumetanide 1 Mg Tablet) 1 mg PO BID@0800,1600 [facility] Stop: 04/16/24 15:59 Last Admin: 04/18/23 09:28 Dose: 1 mg Dextrose (Dextrose 50% In Water 25 Gm/50 Ml Syringe) 0 gm IV-PUSH PRN PRN PRN Reason: Hypoglycemia Stop: 04/15/24 05:42 Enoxaparin Sodium (Enoxaparin 40 Mg/0.4 Ml Syringe) 40 mg SUBCUT DAILY@10 [facility] Stop: 04/15/24 09:59 Last Admin: 04/18/23 [...] 300 Units/3 Ml Insuln.Pen) 0 units SUBCUT TID..[facility]; Protocol Stop: 04/15/24 07:59 Last Admin: 04/18/23 09:29 Dose: Not Given Insulin Glargine (Insulin Glargine 300 Units/3 Ml Insuln.Pen) 42 units SUBCUT BID [facility] Stop: 04/15/24 08:59 Last Admin: 04/18/23 09:29 Dose: 42 units Levothyroxine Sodium (Levothyroxine 25 Mcg Tablet) 25 mcg PO DAILY.629 [facility] Stop: 04/15/24 06:29 Last Admin: 04/18/23 [...] 15 Gm Bottle) 1 applic TOPICAL BID [facility] Last Admin: 04/18/23 09:29 Dose: 1 applic Pantoprazole Sodium (Pantoprazole 40 Mg Tablet.Dr) 40 mg PO DAILY [facility] Stop: 04/15/24 08:59 Last Admin: 04/18/23 09:28 Dose: 40 mg Potassium Chloride (Potassium Chloride Er 20 Meq Tab.Er.Prt) 40 meq PO DAILY PRN PRN Reason: Hypokalemia Stop: 04/15/24 13:39 Tamsulosin HCl (Tamsulosin 0.4 Mg Cap.Er.24h) 0.4 mg PO DAILY [facility] Stop: 04/16/24 14:04 Last Admin: 04/18/23 09:28 Dose: 0.4 mg Trazodone HCl (Trazodone 50 Mg Tablet) 50 mg PO HS [facility] Stop: 04/16/24 21:59 Last Admin: 04/17/23 [...] <Electronically signed by MD Nkechi Kc> 04/18/23 0433 [facility] Work Phone: 1(677) 162-680807-05-2023 Progress note Author Kameron Dos Santos [facility] April 17, 2023 4:48pm Note Date/Time April 17, 2023 4:42p m [facility] [address] [place] [address] Hospitalist Progress Note Signed Patient: Chandler Minor MR#: [id number] : 1970 Acct:[id number] Age/Sex: 52 / M Adm Date: 3 Loc: Room: [address] [place] [address] Type: ADM IN Attending Dr: Kameron Dos [...] by Kameron Dos Santos DO> 04/17/23 1648 [facility] Work Phone: 1(203) 113-445207-05-2023 Consult note Author Nkechi Kc [facility] April 17, 2023 11:20am Note Date/Time April 17, 2023 11:04 am [facility] [address] [place] [address] Nephrology Consult Note Signed Patient: Chandler Minor MR#: [id number] : 1970 Acct:[id number] Age/Sex: 52 / M Adm Date: 3 Loc: Room: [address] [place] [address] Type: ADM IN Attending Dr: Kameron Dos [...] s/p right BKA. Patient was transferred from [facility] forelevated creatinine above the baseline 3.26 mg/dL compared to 1.7 to 1.8 mg/dL. Apparently the patient had fluid overload and he was really taking bumetanide 1 mg twice a day. He was seen by Dr. Prado in the office for consultation last month and metolazone 2.5 mg on [facility] schedule was added. Patient lost close to 20pounds over the last 2 weeks. He presented to [facility] with generalized weakness. Creatinine was found to be 3.26 mg/dL as stated above. Patient was given 1 L of IV fluid and was transferred to [facility] for further evaluation. Patient denied [...] abuse Surgical History S/P percutaneous transluminal angioplasty (GANG RIDER) Family History Other Diabetes mellitus, type 2 [...] Mg/0.4 Ml Syringe) 40 mg SUBCUT DAILY@10 [facility] Stop: 04/15/24 09:59 Last Admin: 04/17/23 09:14 [...] Units/3 Ml Insuln.Pen) 0 units SUBCUT TID.WM.HS [facility]; Protocol Stop: 04/15/24 07:59 Last Admin: 04/17/23 07:51 Dose: Not Given Insulin Glargine (Insulin Glargine 300 Units/3 Ml Insuln.Pen) 42 units SUBCUT BID [facility] Stop: 04/15/24 08:59 Last Admin: 04/17/23 09:14 Dose: Not Given Levothyroxine Sodium (Levothyroxine 25 Mcg Tablet) 25 mcg PO DAILY.629 [facility] Stop: 04/15/24 06:29 Last Admin: 04/17/23 [...] 15 Gm Bottle) 1 applic TOPICAL BID [facility] Last Admin: 04/17/23 09:13 Dose: 1 applic Pantoprazole Sodium (Pantoprazole 40 Mg Tablet.Dr) 40 mg PO DAILY [facility] Stop: 04/15/24 08:59 Last Admin: 04/17/23 [...] Appearance Clear Urine pH 6.5 Ur Specific [place] 1.017 Urine Protein 300 H Urine Glucose [...] Jesu Reese M.D.04/16/2023 6:22 PM Dictation Location: [place] [address] Any impression(s) listed above is documentation that was entered by the reading physician into a diagnostic report(s) for Chandler Forde [place]. I have reviewed the report(s) and am [...] this. Documented By: Nkechi Kc MD 04/17/23 110 Signed By: <Electronically signed by MD Nkechi Kc> 04/17/23 1129 [facility] Work Phone: 1(581) 754-164607-04-2023 Progress note Author Kameron Dos Santos [facility] April 16, 2023 5:33pm Note Date/Time April 16, 2023 5:27p m [facility] [address] [place] [address] Progress Note Signed Patient: Chandler Minor MR#: [id number] : 1970 Acct:[id number] Age/Sex: 52 / M Adm Date: 3 Loc: Room: [address] [place] [address] Type: ADM IN Attending Dr: Kameron Dos [...] increased his diuretic recently. [facility]. It is noted that his [...] by Kameron Dos Santos DO> 04/16/23 1733 [facility] Work Phone: 1([phone]) 674-133107-04-2023 History and physical note Author Albert Woods [facility] April 16, 2023 5:29am Note Date/Time April 16, 2023 5:29a m [facility] [address] [place] [address] Hospitalist H&P Signed Patient: Chandler Minor MR#: [id number] : 1970 Acct:[id number] Age/Sex: 52 / M Adm Date: 3 Loc: Room: [address] [place] [address] Type: ADM IN Attending Dr: Kameron Dos [...] presents hospital today as a transfer from [facility] for FRANK. He states he was recently in a fluid overload state and he was already taking Bumex 1 mg twice daily and his life guard recently put him on metolazone 2.5 mg Saturday, he states once that was started he lost 19 pounds of water weight and roughly 2 weeks and he presented to the hospital today with chief complaint of weakness and chest pain at [facility]. [facility] was found to have FRANK with his creatinine 3.26. He was given 1 L of IV fluids at [facility] and then he was subsequently transferred here. [...] abuse Surgical History S/P percutaneous transluminal angioplasty (GANG RIDER) Family History Other Diabetes mellitus, type 2 [...] She received 1 L IV fluids at [facility] ? 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 Scan locations included subfoveal. Progression has worsened. Findings include intraretinal fluid. Left Eye Quality was good. Scan locations included subfoveal. Progression has worsened. Findings include intraretinal fluid. Notes Atrophy and IRF OU Brady Lowry MD [id number] Instructions* Patient Instructions* Maddie Lau MD - [...] appointment for next Saturday. documented in this [id number] History of Present illness Narrative* Maddie Lau [...] Seen with Dr. Lowry documented in this [id number] History of Present illness Narrative* Brady Lowry [...] note. Brady Lowry MD documented in this [id number] NoteTime Out Confirmed correct patient, procedure, site, [...] fill in OU Inferior VH limiting uptake [id number] NoteRight Eye Quality was good. Scan locations included subfoveal. Progression has been stable. Findings include abnormal foveal contour. Left Eye Quality was good. Scan locations included subfoveal. Progression has been stable. Findings include abnormal foveal contour. Notes Atrophy/thin retina [id number] History of Present illness Narrative * Hema [...] OU OCT mac OU documented in this [id number] NoteRight Eye Quality was good. Scan locations included subfoveal. Progression has improved. Findings include abnormal foveal contour, intraretinal fluid. Left Eye Quality was good. Scan locations included subfoveal. Progression has improved. Findings include abnormal foveal contour, intraretinal fluid. [id number] History of Present illness Narrative* Demetri Frank [...] Color photos ou PRP documented in this [id number] NoteHNO ID: [id number] Author: Vj Haddad II, OD Service: ? 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 Patient will continue all ongoing care with previously established care givers. 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 Vj Haddad [facility] Instructions* Patient Instructions* Vj Haddad II, OD - 09/03/2022 5:11 PM EST [facility] History of Present illness Narrative* Vj [...] right eye and macular edema, unspecified whether bed bug exterminator insulin use (HCC) E11.3592 Type 2 diabetes mellitus with proliferative diabetic retinopathy of left eye without macular edema, unspecified whether bed bug exterminator insulin use (HCC) Comment: Last intraocular [...] I have seen and examined Chandler Forde [place]. I have discussed the case and the management of this patient's care with the Resident/Fellow, if applicable. I also have reviewed and agree with the assessment and plan as stated above and agree withall of its relevant components. Vj Haddad II, OD documented in [facility]11-15-2022 Evaluation note* Encounter Date Diagnosis Assessment Notes Treatment Notes Treatment Clinical Notes Aug, Type 2 diabetes mellitus with hyperglycemia (ICD-10 - E11.65) [facility] Other 11-14-2022 Evaluation note* Encounter Date Diagnosis Assessment Notes Treatment Notes Treatment Clinical Notes Aug, Type 2 diabetes mellitus with hyperglycemia (ICD-10 - E11.65) [facility] Other 08-03-2022 Evaluation note* Encounter Date Diagnosis Assessment Notes Treatment Notes Treatment Clinical Notes May, Type 2 diabetes mellitus with hyperglycemia (ICD-10 - E11.65) 1. Uncontrolled, a Type 2 diabetes with A1c of 8.6%. 2. Blood glucose levels improved from last visit 01/10/22 a1c was 15.8%. According to [employer] g6 cgm download 05/03/22-05/16/22: Avg glucose 184. [...] would need stopped. Pt agreeable to starting [id number] once daily 3. Patient is alert, oriented [...] (hypertension) (ICD-10 - I10) on arb May, longterm current use of insulin (ICD-10 - Z79.4) May, BMI 36.0-36.9,adult (ICD-10 - Z68.36) 03 May, 2022 Hypoglycemia associated with type 2 diabetes mellitus (ICD-10 - E11.649) [facility] Other [id number] NoteRight Eye Quality was good. Progression has worsened. Findings include intraretinal fluid, subretinal fluid, abnormal foveal contour. Left Eye Quality was good. Progression has worsened. Findings include intraretinal fluid, subretinal fluid, abnormal foveal contour.[id number] History of Present illness Narrative* Demetri Frank [...] to ED if symptoms recur precert althea npy195 today F/u 4-6 weeks shahla/vivian Dilate ou Oct ou Color photos ou documented in this [id number] Telephone encounter Note* Telephone Encounter - Agustin Munguia MD - 03/19/2022 9:20 AM EDT Already has appt this Wed 6/8 Confirmed appt with family [facility] Work Phone: 1(644) 228-216206-06-2022 Miscellaneous Notes* Telephone Encounter - Agustin Munguia MD - 03/19/2022 9:20 AM EDT Already has appt this 03/21 Confirmed appt with family * Telephone Encounter - Rita Gonzalez - 03/19/2022 8:05 AM EDT Pt's family called back in regarding this issue. They are very frustrated because they never received a call from anyone with an appt date/time. They request a call at [phone] to proceed. She states she will call back in tomorrow should she not hear back. Thank you. * Telephone Encounter - Ebonie Huizar - 03/07/2022 10:43 AM EDT Family calling in on behalf of pt - regarding above mssgs. Asking to be rescheduled for sooner appt when possible. Best contact # [phone] Thank you! * Telephone Encounter - Rita [...] he cannot see. Please contact pt at [phone] to discuss/advise. Thank you. documented in this [id number] Miscellaneous Notes* Telephone Encounter - Rita Gonzalez - 03/19/2022 8:05 AM EDT Pt's family called back in regarding this issue. They are very frustrated because they never received a call from anyone with an appt date/time. They request a call at [phone] to proceed. She states she will call back in tomorrow should she not hear back. Thank you. * Telephone Encounter - Ebonie Huizar - 03/07/2022 10:43 AM EDT Family calling in on behalf of pt - regarding above mssgs. Asking to be rescheduled for sooner appt when possible. Best contact # [phone] Thank you! * Telephone Encounter - Rita [...] he cannot see. Please contact pt at [phone] to discuss/advise. Thank you. documented in this [id number] Telephone encounter Note* Telephone Encounter - Rita Gonzalez - 03/19/2022 8:05 AM EDT Pt's family called back in regarding this issue. They are very frustrated because they never received a call from anyone with an appt date/time. They request a call at [phone] to proceed. She states she will call back in tomorrow should she not hear back. Thank you. [id number] Evaluation note* Encounter Date Diagnosis Assessment Notes Treatment Notes Treatment Clinical Notes February, Other Summary of Visi t: (A) reviewed which foods have carbs and which are low carb (B) basic carb counting (C) treatment of hypoglycemia Patient set the following goals: - practice carb counting and dosing insulin accurately [facility] Other 05-25-2022 Evaluation note* Encounter Date Diagnosis Assessment Notes Treatment Notes Treatment Clinical Notes February, Type 2 diabetes mellitus with hyperglycemia (ICD-10 - E11.65) [facility] Other 05-25-2022 Telephone encounter Note* Telephone Encounter - Ebonie Huizar - 03/07/2022 10:43 AM EDT Family calling in on behalf of pt - regarding above mssgs. Asking to be rescheduled for sooner appt when possible. Best contact ph# [phone] Thank you! [id number] Miscellaneous Notes* Telephone Encounter - Ebonie Huizar - 03/07/2022 10:43 AM EDT Family calling in on behalf of pt - regarding above mssgs. Asking to be rescheduled when possible. Best contact ph# [phone] Thank you! * Telephone Encounter - Rita [...] he cannot see. Please contact pt at [phone] to discuss/advise. Thank you. documented in this [id number] Miscellaneous Notes* Telephone Encounter - Ebonie Huizar - 03/07/2022 10:43 AM EDT Family calling in on behalf of pt - regarding above mssgs. Asking to be rescheduled for sooner appt when possible. Best contact # [phone] Thank you! * Telephone Encounter - Rita [...] he cannot see. Please contact pt at [phone] to discuss/advise. Thank you. documented in this [id number] Evaluation note* Encounter Date Diagnosis Assessment Notes Treatment Notes Treatment Clinical Notes February, Type 2 diabetes mellitus with hyperglycemia (ICD-10 - E11.65) [facility] Other 05-02-2022 Telephone encounter Note* Telephone Encounter [...] he cannot see. Please contact pt at [phone] to discuss/advise. Thank you. [id number] Miscellaneous Notes* Telephone Encounter - Rita Gonzalez [...] he cannot see. Please contact pt at [phone] to discuss/advise. Thank you. documented in this [id number] Evaluation note* Encounter Date Diagnosis Assessment Notes [...] Order placed for Dexcom G6 CGM to [facility] [place]. [facility] contact information provided to pt. All questions and concerns addressed. Encouraged to follow up for next appointment. 30 minutes was spent on education by Blanca STRAUSS, RN. Reviewed dexcom g6 cgm download with recommendation to reduce levemir to 40 units bid. Payton PAUL, ACCREDITATION MANAGER-C -ADM [facility] Other 04-15-2022 Evaluation note* Encounter Date Diagnosis [...] educating the patient by Dolores Osborne RN. [facility] Other 04-11-2022 Evaluation note* Encounter Date Diagnosis Assessment Notes Treatment Notes Treatment Clinical Notes Jan, Type 2 diabetes mellitus with hyperglycemia (ICD-10 - E11.65) 1. Uncontrolled, a Type 2 diabetes with A1c of 15.8% 01/10/2022 [facility] 2. Blood glucose levels above [...] to 1.8mg dose. Recommend f/u apt with machine shop inspector for application of dexcom g6- he is to bring his phone to see if compatible for julia for dexcom g6- if not compatible will recommend he wear professional dexcom blinded x10 days. He was given log book instructed to log meals, glucose, insulin dosing and bring to f/u apt for review with machine shop inspector. Also recommend he see RD to assist with carb counting. He is interested in insulin pump. He was also given phone number/website to [employer], encouraged to call for apt. Will send [employer] talking meter- meter blood sampling for strip [...] or diabetes medication issues. 6. Prescriptions: Uses [employer] [place]. 7. F/u with machine shop inspector 2 weeks application of dexcom- see above. Referral to RD for instruction on carb counting- pt interested in insulin pump. Jan, Dietary counseling and surveillance (ICD-10 - Z71.3) see above Jan, Hyperlipidemia (ICD-10 - E78.5) on statin Jan, HTN (hypertension) (ICD-10 - I10) on arb Jan, longterm current use of insulin (ICD-10 - Z79.4) Jan, BMI 36.0-36.9,adult (ICD-10 - Z68.36) Jan, Hypoglycemia associated with type 2 diabetes mellitus (ICD-10 - E11.649) Pt would greatly benefit from longterm personal use of CGM device such as a [employer] g6 with ability for high/low alarm feature. Pt. currently using insulin injections >3 times/day with insulin to carb ratio/corrective factor and requires frequent self adjustment of insulin based on carbohydrate intake, physical activity blood glucose monitoring. A CGM would improve ease of access to glucose results and reduce risk of hypoglcyemia/hyperg lycemia. [facility] Other 04-01-2022 Hospital Discharge instructionsAmbulatory Orders* Initiate [...] Mepilex border foam. DISCHARGE INSTRUCTIONS FOR CARDIAC EXHIBITS MANAGER PHONE NUMBER OF YOUR PHYSICIAN: [phone] PROCEDURE: Heart Cath The following instructions have [...] cold, numb, blue or white, call the electric relay tester immediately. 4. ACTIVITY: You are advised to [...] bottle, follow the instructions on the bottle. [facility] is not responsible for incorrect prescription information provided by the patient during their visit. Do not stop your medications without consulting your health care provider. Please take the list with you to your next doctor's appointment.[facility] Work Phone: 1(788) 300-943203-31-2022 Progress note Author Jonn Wallace [facility] January 11, 2022 4:57pm Note Date/Time January 11, 2022 4:4 8pm [facility] [address] [place] [address] Hospitalist Progress Note Signed Patient: Chandler Minor MR#: [id number] : 1970 Acct:[id number] Age/Sex: 51 / M Adm Date: 2 Loc: Room: [address] [place] [address] Type : ADM INOo Attending Dr: Jonn [...] stable. Documented By: Jonn Wallace MD 2 6223 Signed By: <Electronically signed by Jonn Wallace MD> 01/11/22 2537 [facility] Work Phone: 1(593) 486-888503-31-2022 Consult note Author W Torsten [facility] January 11, 2022 2:30pm Note Date/Time January 11, 2022 2:3 0pm [facility] [address] [place] [address] Cardiology Consult Note Signed Patient: Chandler Minor MR#: [id number] : 1970 Acct:[id number] Age/Sex: 51 / M Adm Date: 2 Loc: Room: [address] [place] [address] Type : ADM IN Attending Dr: Jonn Wallace MD Copies to: DO Jonn Zuniga MD W Jesús Sarmiento, ~ Cardiology HPI History of Present Illness Consult Date: 01/11/22 Reason for Consult: Chest pain HPI: Mr. Minor is a 51 year old male seen in interventional cardiology consultation at request of the hospitalist and in conjunction with fourth-year medical student Dr. Krysitn Santana. We have evaluated and examined the [...] or illicit drug use. Denies personal h/o NM, HF, bleeding disorder. His father had ministrokes [...] abuse Surgical History S/P percutaneous transluminal angioplasty (GANG RIDER) Family History Other Diabetes mellitus, type 2 [...] normal, S2 normal and no murmurs MARIA LUSIA Risk Score MARIA LUISA Risk Score Predictor [...] Lymph # (Auto) 1.2 1.3 (1.00-4.8) x10E3/uL [place] # (Auto) 0.5 0.6 (0.0-0.8) x10E3/uL Eos [...] ml @ 999 mls/hr IV .Q1H1M ONE Rx#:[id number] Oral 100 / 100 50 / 50 [...] signed by Leann Sarmiento DO> 01/11/22 1430 [facility] Work Phone: 1(701) 293-468003-31-2022 Procedure [facility]03-31-2022 Procedure [facility]03-31-2022 History and physical note Author Jonn Wallace [facility] January 11, 2022 11:49am Note Date/Time January 11, 2022 11: 49am [facility] [address] [place] [address] Hospitalist H&P Signed Patient: Chandler Minor MR#: [id number] : 1970 Acct:[id number] Age/Sex: 51 / M Adm Date: 2 Loc: Room: [address] [place] [address] Type : ADM IN Attending Dr: Jonn [...] abuse Surgical History S/P percutaneous transluminal angioplasty (GANG RIDER) Family History Other Diabetes mellitus, type 2 [...] % (Auto) 12.3 % (.) 01/10/22 15:00 [place] % (Auto) 4.8 % (.) 01/10/22 15:00 Eos % (Auto) 4.2 % (.) 01/10/22 15:00 Baso % (Auto) 1.2 % (.) 01/10/22 15:00 Neut # (Auto) 7.6 x10E3/uL (1.8-7.7) 01/10/22 15:00 Lymph # (Auto) 1.2 x10E3/uL (1.00-4.8) 01/10/22 15:00 [place] # (Auto) 0.5 x10E3/uL (0.0-0.8) 01/10/22 15:00 [...] above. Documented By: Jonn Wallace MD 2 0689 Signed By: <Electronically signed by Jonn Wallace MD> 01/11/22 1140 [facility] Work Phone: 1(756) 982-124903-22-2022 Evaluation note* Encounter Date Diagnosis Assessment Notes [...] site. Needs emergent attention should redness/ulcer develop. [facility] Other 11-16-2021 Evaluation note* Encounter Date Diagnosis [...] Patient care instructions given in writting by [facility] Care At Home document [facility] Other 11-01-2021 History general Narrative - Reported* [...] Hospitalization History Hypertensive emergency, chest pain 01/10/2022 [facility] Other 11-01-2021 History general Narrative - Reported* [...] chest pain 01/10/2022 Hospitalization History CHF, CELLULTIS, [facility] Other 10-07-2021 Evaluation note* Encounter Date Diagnosis [...] Jul, HTN (hypertension) (ICD-10 - I10) Jul, intermediate manager current us e of insulin (ICD-10 - Z79.4) [facility] Other 09-27-2021 Evaluation note* Encounter Date Diagnosis [...] we can consider him for a prosthetic. [facility] Other Evaluation noteNo assessment information [facility] Work Phone: evaluation note* Diagnosis Onset Date Resolution Status Chest pain acute Hx of right BKA acute Hypertensive emergency acute Diabetes mellitus chronic Tobacco abuse chronic [facility] Work Phone: evaluation note* Diagnosis Proliferative diabetic retinopathy of both eyes associated with type 2 diabetes mellitus, unspecified proliferative retinopathy type (HCC)- [facility] Other evaluation note* Diagnosis Disability examination- Primary Issue of medical certificate for disability examination 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, unspecified whether bed bug exterminator insulin use (HCC) Type 2 diabetes mellitus with proliferative diabetic retinopathy of left eye without macular edema, unspecified whether bed bug exterminator insulin use (HCC) Myopia, bilateral Myopia Regular astigmatism, bilateral Presbyopia [facility] Proliferative diabetic retinopathy of [...] Resolution Status FRANK (acute kidney injury) ac pokagon Dehydration acute CKD (chronic kidney disease) stage 3, GFR 30-59 ml/min chronic Diabetes mellitus chronic Hypertension chronic [facility] Work Phone: evalufpfes note* Diagnosis Proliferative diabetic retinopathy of both [...] d Hypoglycemia resolved Hypothermia resolved Leukocytosis resolved [facility] Work Phone: Evaluation note* Diagnosis Proliferative [...] Below knee amputation Hospitalization History see above [facility] Other Hospital Discharge [facility] Work Phone: Summary Purpose Family History No [...] To Contact Closed Radiology Diagnoses 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) Procedures CTA ABDOMINAL AORTA [place] [address] [place] [address] Specialty Diagnoses / Procedures Referred By Contac t Referred To Contact Infusion Services Diagnoses Proliferative diabetic retinopathy of both eyes associated with type 2 diabetes mellitus, unspecified proliferative retinopathy type (HCC) Demetri Frank MD [address] [place] [address] S ATTENDING PATHOLOGIST [employer] [address] [place] [address] Referral ID Status Reason Start Date Expiration Date V isits Requested Visits Authorized [id number] Pending Review 03/21/2022 03/21/2023 14 14 Question [...] intradermal (PPD) (CVX=96) Assessments Diagnosis 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) Atherosclerosis of levelock arteries of the extremities with gangrene Diagnosis [...] loss Fluid Accumulation: No significant fluid accumulation Cake Batter Mixer Strength: Not Performed Estimated Daily Nutrient Needs: Energy (kcal): 0584-2382 kcals @ 13-15 kcal/kg; Weight Used for Energy Requirements: Admission(133 kg) Protein (g): 84-97 g protein @ 1.3-1.5 g/kg IBW; Weight Used for Protein Requirements: [place](65 kg) Fluid (ml/day): ~1950 @ 30 ml/kg [...] 214 lb (97.1 kg)((2019); 236# ( 11/03)) [place] Body Weight: 142 lbs; BMI: 47 BMI [...] AM EDT Wound Ostomy Continence Nursing This [facility] Nurse asked by Dr. Galarza and [...] wound evaluation. No other needs from this [facility] Nurse at this time. documented in [...] by the following consultants while admitted to [facility]: Consults: IP CONSULT TO VASCULAR SURGERY Significant Diagnostic Studies: Refer to chart Please refer to chart if no studies are shown here No results found. Discharge Medications: [facility] Home Medication Instructions FLORENTIN:[id number] Printed on:12/29/20 1111 Medication Information amLODIPine (NORVASC) [...] daily Disposition: If discharged to Home, Any [facility] needs that were indicated and/or required [...] at most local grocery stores, pharmacies, and [email or web address]. If you have any questions about your [...] Hospital Unit/Room#: W194/W194-01 Discharging Unit Phone Number: [phone] Emergency Contact: Extended Emergency Contact Information Primary Emergency Contact: Tiffanie Minor Relation: Child Preferred language: Danish Aviation Safety Technician needed? No Secondary Emergency Contact: Suzan Minor Relation: Parent Preferred language: Danish Aviation Safety Technician needed? No Past Surgical History: Past Surgical [...] Assisted Dressing Assisted Toileting Assisted Feeding Independent Oil Filters Inspector Assisted Med Delivery whole Wound Care Documentation [...] select all that are sent with patient): {[facility] DME Belongings:[id number]:::[id number]} RN SIGNATURE: CASE MANAGEMENT/SOCIAL WORK SECTION Inpatient Status Date: Readmission Risk Assessment Score: Readmission Risk Risk of Unplanned Readmission: 15 Discharging to Facility/ Agency Name: [facility] Address:[address] [place] [address] Fax: Dialysis Facility (if applicable) Name: Address: Dialysis Schedule: Phone: Fax: Merchant Seaman/Mva Still Operator signature: PHYSICIAN SECTION Prognosis: Good Condition [...] the diagnosis listed and that he requires Long-Term Facilityfor less 30 days. Update Admission H&P: [...] who returns following recent non- ST elevation NM, cardiac catheterization revealed severe LAD disease throughout [...] DATE CREATED AUTHOR AUTHOR'S ORGANIZ ATION 12/30/2020 [facility] DATE CREATED AUTHOR AUTHOR'S ORGANIZ ATION 03/08/2022 [facility] DATE CREATED AUTHOR AUTHOR'S ORGANIZ ATION 09/04/2022 [facility] DATE CREATED AUTHOR AUTHOR'S ORGANIZ ATION 03/23/2023 [facility] DATE CREATED AUTHOR AUTHOR'S ORGANIZ ATION 09/19/2023 [facility] SOM DATE CREATED AUTHOR AUTHOR'S ORGANIZ ATION 10/18/2023 [facility] DATE CREATED AUTHOR AUTHOR'S ORGANIZ ATION 11/08/2023 [facility] DATE CREATED AUTHOR AUTHOR'S ORGANIZ ATION 11/22/2023 [facility] Reason for Visit (unrecogniz ed section and content) Status Reason Specialty Diagnoses / Procedures Referre d By Contact Referred To Contact Closed Radiology Diagnoses 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) Procedures CTA ABDOMINAL AORTA W BIL[place] [address] [place] [address] Status Reason Specialty Diagnoses / Procedures Referre d By Contact Referred To Contact [facility] Reason Comments Other sent from cardiac, n eeds to be admitted, vascular issue rle Status Reason Specialty Diagnoses / Procedures Referred By Contact Referred To Contact Diagnoses [place] [address] [place] [address] [facility] Reason Onset Date Comments Other sympt/complt of eye 02/12/2022 Reason Comments Diabetic Eye Exam Reason Comments Disability Evaluation Specialty Diagnoses / Procedures Referred By Jay mai Referred To Contact Optometry / OPHTHALMOLOGY Diagnoses [place] Disability Exam (Case#[id number]) Procedures NEW ADULT Self LeslieerVj II, OD [address] [place] [address] Referral ID Status Reason Start Date Expiration Date Visits Re quested Visits Authorized [id number] Closed 09/03/2022 09/03/2022 1 1 Reason Comments [...] Active Mika Das APRN Attending Provider Active Cnc Grinder Relationship Specialty Start Date End Date Rober Lopes MD [address] [place] [address]388 Physician Ophthalmology 07/19/20 Raul Chamberlain MD [address] [place] [address] [id number] Resident Ophthalmology 07/19/20 Agustin Hampton MD [address] [place] [address] 05489 Resident Ophthalmology 11/18/21 Cnc Grinder Relationship Specialty Start Date End Date Rober Lopes MD [address] [place] [address] 90401 Physician Ophthalmology 07/19/20 Raul Chamberlain MD [address] [place] [address] [place] [address] Resident Ophthalmology 07/19/20 Agustin Hampton MD [address] [place] [address] 09824 Resident Ophthalmology 11/18/21 Cnc Grinder Relationship Specialty Start Date End Date Rober Lopes MD [address] [place] [address] 40328 Physician Ophthalmology 07/19/20 Raul Chamberlain MD [address] [place] [address] [place] [address] Resident Ophthalmology 07/19/20 Agustin Hampton MD [address] [place] [address] 78093 Resident Ophthalmology 11/18/21 Cnc Grinder Relationship Specialty Start Date End Date Rober Lopes MD [address] [place] [address] 73532 Physician Ophthalmology 07/19/20 Raul Chamberlain MD [address] [place] [address] [place] [address] Resident Ophthalmology 07/19/20 Agustin Hampton MD [address] [place] [address] 59373 Resident Ophthalmology 11/18/21 Cnc Grinder Relationship Specialty Start Date End Date Rober Lopes MD [address] [place] [address] 84194 Physician Ophthalmology 07/19/20 Raul Chamberlain MD [address] [place] [address] [place] [address] Resident Ophthalmology 07/19/20 Agustin Hampton MD [address] [place] [address] 14552 Resident Ophthalmology 11/18/21 Team Status: Inactive Member Role Status Dates Fadi Tenorio , DO Primary Care Provider Active Sinan Holly , Emergency Provider Active Suzan Bennett MD RES Active Cnc Grinder Relationship Specialty Start Date End Date Rober Lopes MD [address] [place] [address] 59967 Physician Ophthalmology 07/19/20 Raul Chamberlain MD [address] [place] [address] [place] [address] Resident Ophthalmology 07/19/20 Agustin Hampton MD [address] [place] [address] 38467 Resident Ophthalmology 11/18/21 Demetri Frank MD [address] [place] [address] 17890 Physician Ophthalmology 04/14/22 Cnc Grinder Relationship Specialty Start Date End Date Rober Lopes MD [address] [place] [address] 80406 Physician Ophthalmology 07/19/20 Raul Chamberlain MD [address] [place] [address] [place] [address] Resident Ophthalmology 07/19/20 Agustin Hampton MD [address] [place] [address] 95316 Resident Ophthalmology 11/18/21 Demetri Frank MD [address] [place] [address] 73357 Physician Ophthalmology 04/14/22 Cnc Grinder Relationship Specialty Start Date End Date Rober Lopes MD [address] [place] [address] 53589 Physician Ophthalmology 07/19/20 Raul Chamberlain MD [address] [place] [address] [place] [address] Resident Ophthalmology 07/19/20 Agustin Hampton MD [address] [place] [address] 93674 Resident Ophthalmology 11/18/21 Demetri Frank MD [address] [place], [place] [id number] Physician Ophthalmology 04/14/22 Cnc Grinder Relationship Specialty Start Date End Date Rober Lopes MD [address] [place] [address] 45392 Physician Ophthalmology 07/19/20 Raul Chamberlain MD [address] [place] [address] [place] [address] Resident Ophthalmology 07/19/20 Agustin Hampton MD [address] [place] [address] 68264 Resident Ophthalmology 11/18/21 Demetri Frank MD [address] [place] [address] Physician Ophthalmology 04/14/22 Team Status: Inactive Member Role Status Dates Fadi Tenorio , DO Primary Care Provider Active Kameron Dos Santos , DO Attending Provider Active Albert Woods , DO Admit Provider Active Nkechi K[employer] MD Other Provider Active Cnc Grinder Relationship Specialty Start Date End Date Rober Lopes MD [address] [place] [address] 56082 Physician Ophthalmology 07/19/20 Raul Chamberlain MD [address] [place] [address] Resident Ophthalmology 07/19/20 Agustin Hampton MD [address] [place] [address] Resident Ophthalmology 11/18/21 Demetri Frank MD [address] [place] [address] Physician Ophthalmology 04/14/22 Team Status: Active Member [...] Active Harjeet Ruelas MD Attending Provider Active Cnc Grinder Relationship Specialty Start Date End Date Rober Lopes MD [address] [place], [place] [id number] Physician Ophthalmology 07/19/20 Raul Chamberlain MD [address] [place] [address] Resident Ophthalmology 07/19/20 Agustin Hampton MD [address] [place] [address] Resident Ophthalmology 11/18/21 Demetri Frank MD [address] [place], [place] [id number] Physician Ophthalmology 04/14/22 Cnc Grinder Relationship Specialty Start Date End Date Rober Lopes MD [address] [place] [address] Physician Ophthalmology 07/19/20 Raul Chamberlain MD [address] [place] [address] Resident Ophthalmology 07/19/20 Agustin Hampton MD [address] [place] [address] Resident Ophthalmology 11/18/21 Demetri Frank MD [address] [place], [place] [id number] Physician Ophthalmology 04/14/22 Goals (unrecognized section and [...] or prosecute any alcohol or drug abuse patient.[facility] FOR RECORDS PERTAINING TO PATIENTS WHO [...] BE BASED ON THE PRIMARY CLINICAL RECORDS. [facility] [employer] [facility]. provides no warranty or guarantee of the accuracy or completeness of information in this document.
--- NOTE | 2023-11-29 12:08 | W.PM.WC ---
Wound Consult Note Assessment and Plan (1) Diabetic foot ulcer: Qualifiers: Diabetic foot ulcer location: toe Diabetes mellitus type: type 2 Laterality: left Non-pressure ulcer stage: limited to breakdown of skin Qualified Code(s): E11.621 - Type 2 diabetes mellitus with foot ulcer; L97.521 - Non-pressure chronic ulcer of other part of left foot limited to breakdown of skin (2) Type 2 diabetes mellitus with hyperglycemia: (3) FRANK (acute kidney injury): (4) Benign essential hypertension: (5) Chronic heart failure with preserved ejection fraction (HFpEF): (6) Noncompliance with medication regimen: (7) Peripheral arterial disease: (8) CAD (coronary artery disease): (9) CKD (chronic kidney disease) stage 4, GFR 15-29 ml/min: Plan Consult: Stump ulcer Patient had been see by Dr. Littlejohn earlier this AM for left diabetic foot ulcer. Patient is also found to have an open area on his right BKA stump. Area is very small measuring 0.4cmx0.4cmx0.1cm. No drainage noted. No signs or symptoms of infection. No pain. Patient denies using anything on this area at home. Recommendations: Keep area clean and dry. Apply small amount of betadine and keep covered with gauze and paper tape or bandaid if patient is OK with adhesive. Change daily. Please call [phone] with any questions or concerns. Andrzej Bertrand, KASIAN, RN, CWON
--- NOTE | 2023-11-29 12:59 | CM.NOTE ---
Discussed with pt about discharge planning, PT states no needs. Pt has been non-compliant with medications and requesting a nurse to come in for HH services related to medications and wound care. Pt given Medicare.gov 5 star rating and would like referral sent to [facility]. [facility] sent clinical for new referral.
[2023-11-29] MEDS: INSULIN ASPART 300 UNIT/3 ML PEN SUBQ (13:03)
--- NOTE | 2023-11-29 14:27 | CM.NOTE ---
Pt already discharged when entered room to discuss discharge planning. Unable to reach pt on cell phone so called [facility] his emergency contact. All information and telephone number for [facility] given to [facility]. [facility] will get in touch with [facility] with information. [facility] will accept pt and have been notified pt discharged to home today.
--- NOTE | 2023-12-02 13:11 | SWNOTE1 ---
JASON sent over de med rec and updated physician notes to [facility] . Pt was discharged over the weekend.
== END 2023-11-29 14:00 | disposition home health service (06) ==
LOC: ER 17:55 → ICU 11-29 08:07
PROVIDERS: Admitting Provider Family Medicine; Emergency Provider Emergency Medicine; PCP Family Medicine; Visit Provider Family Medicine
DX: E11.65 Type 2 diabetes mellitus with hyperglycemia (principal); E11.621 Type 2 diabetes mellitus with foot ulcer; L97.521 Non-pressure chronic ulcer of other part of left foot limited to breakdown of skin; N17.9 Acute kidney failure, unspecified; L97.819 Non-pressure chronic ulcer of other part of right lower leg with unspecified severity; I13.0 Hypertensive heart and chronic kidney disease with heart failure and stage 1 through stage 4 chronic kidney disease, or unspecified chronic kidney disease; I50.32 Chronic diastolic (congestive) heart failure; Z91.148 Patient's other noncompliance with medication regimen for other reason; I25.10 Atherosclerotic heart disease of native coronary artery without angina pectoris; E11.51 Type 2 diabetes mellitus with diabetic peripheral angiopathy without gangrene; E11.22 Type 2 diabetes mellitus with diabetic chronic kidney disease; N18.4 Chronic kidney disease, stage 4 (severe); F17.210 Nicotine dependence, cigarettes, uncomplicated; Z89.511 Acquired absence of right leg below knee; Z79.899 Other long term (current) drug therapy; Z79.4 Long term (current) use of insulin; Z79.890 Hormone replacement therapy; Z20.822 Contact with and (suspected) exposure to COVID-19
CPT/HCPCS: 36415; 70450; 71045; 73630; 80048; 80053; 80076; 80202; 80320; 81001; 82009; 82800; 82948; 83605; 84145; 84484; 85025; 87040; 87804; 87811; 93005; 96361; 96365; 96366; 96367; 96376; 97162; 99285; G0378; J2543; J3370

== ENCOUNTER 2023-12-06 10:11 | Outpatient (OUT) | payer MEDICARE, SELFPAY ==
--- OUTSIDE RECORDS SUMMARY | 2023-12-06 10:25 | XMS_ITS | CCD ---
Author Name Unknown Address [address] [place] [address] Organization [facility] Care Team Providers Care Horse Racing Analyst Name Role Phone Fatoumata Tirado H. Admitting Unavailable Dulces, Fatoumata HCirilo Attending Unavailable Fatoumata Tirado H. Referring Unavailable Fadi Tenorio Primary Care Unavailable DulcesFatoumata HCirilo Admitting Unavailable Dulces, Fatoumata HCirilo Attending Unavailable Fatoumata Tirado H. Referring Unavailable Fadi Tenorio Primary Care Unavailable House, Sr Fadi Neves Primary Care Provider COBY, SR FADI Neves Primary Care Unavailable PHUC, LLEOWELL Consulting Unavailable CHATHA, KAISER Admitting Unavailable CHATHA, KAISER Attending Unavailable KASHMIR BAZZI Consulting Unavailable PHUC, LLEOWELL Referring Unavailable HOUSE, SR FADI Neves Primary Care Unavailable PHUC, LLEOWELL Referring Unavailable HOUSE, SR FADI Neves Primary Care Unavailable PHUC, LLEOWELL Admitting Unavailable PHUC, LLEOWELL Attending Unavailable DO Fadi Tenorio Primary Care Provider [phone] DO Mario Phillips Emergency Provider MD Jonn [...] Das Attending Provider Shahla FLAHERTY, Rober Unavailable Raul Chamberlain MD Unavailable Agustin Hampton MD Unavailable Unavailable Unavailable [place] Unavailable Mika Das Unavailable Nury Martin Unavailable Agus Pedroza Unavailable Jazzmine Dukes Unavailable DO Fadi Tenorio Primary Care Provider [phone] HUMBERTO Das Attending Provider [phone] DO Sinan Holly Emergency Provider Unavailable Primary Care Provider UnavailVJ Gomez II Attending Unavaildixon Lopes MD, Rober Unavailable Bulmaro FLAHERTY, Raul Unavailable Berta FLAHERTY, Agustin Unavailable Vivian FLAHERTY, Demetri Unavailable Shahla FLAHERTY, Rober Unavailable Bulmaro FLAHERTY, Raul Unavailable Berta FLAHERTY, Agustin Unavailable Vivian FLAHERTY, Demetri Unavailable Vivian FLAHERTY, Demetri Unavailable [phone] MURRAY YEBOAH Consulting Unavailable RODERICK ., ALDO Admitting Unavailable RODERICK ., ALDO Attending Unavailable [place], DR DUCKWORTH Primary Care Unavailable SERA ., DR SHERMAN Consulting Unavailable SHAIKH Amada MORSE Consulting Unavailable DANDY, ANIBAL Consulting Unavailable LOTTIE NESBITT Consulting Unavailable SISTER, JESSICA Consulting Unavailable RODERICK ., ALDO Consulting Unavailable NEWATIA, SAMANTHA Consulting Unavailable BARAZITONY Consulting Unavailable UJAN LUIS HAND Consulting Unavailable COBY, DR DUCKWORTH Primary Care Unavailable [place], DR DUCKWORTH Admitting Unavailable [place], DR DUCKWORTH Attending Unavailable [place], DR DUCKWORTH Consulting Unavailable COBY, DR DUCKWORTH Primary Care Unavailable NBA COBOS Admitting Unavailable NBA COBOS Attending Unavailable JENNIFER .FÁTIMA Consulting Unavaildixon higuera DURAN, LISA Consulting Unavailable CLIVE HOLLAND Consulting Unavailable COBY, DR DUCKWORTH Primary Care Unavailable GRAY, DR KEVON Anderson Attending Unavailable GRAY, DR KEVON Anderson Consulting Unavailable GRAY, DR KEVON Anderson Admitting Unavailable FÁTIMA ALMONTE Consulting UnavailNBA Spears Consulting Unavailable SHRUTI HANCOCK Consulting Unavailable CHULA MALHOTRA Consulting Unavailable Eliud Prado Unavailable DO Fadi Tenorio Primary Care Provider [phone] DO Kameron Dos Santos Attending Provider DO [place] Admit Provider MD [facility] Other Provider Vivian FLAHERTY, Demetri Unavailable DO Christopher Santiago Emergency Provider [phone] None, DO Doctor Primary Care Provider UnavailDO Chava Vears Attending Provider MD Helen Jovel Admit Provider [phone] MD Helen Jovel Attending Provider MD Radha Bell Other Provider MD Kan Granger Other Provider MD Jose Maria Lopez Other Provider MD Geovani Hebert Other Provider MD Elvin Lyles Other Provider DO Manda Scott Other Provider MD Marcelino Abel Other Provider MD Steve Block Other Provider MD Agus Morrison Other Provider MD Harjeet Ruelas Attending Provider [phone] Marcelino Abel Attending Unavailable Radha Bell Consulting Unavailable Helen Jovel Admitting Unavailable Kan Granger Consulting Unavailable Jose Maria Lopez Consulting Unavailable Geovani Hebert Consulting Unavailable Elvin Lyles Consulting Unavailable Manda Scott Consulting Unavailable Page, Ummonika Consulting Unavailable Steve Block Consulting Unavailable Agus Morrison Consulting Unavailable Helen Jovel Consulting Unavailable Chava Hernandez Attending Unavailable Radha Bell Consulting Unavailable Parsi, Harjeet Attending Unavailable Parsi, Harjeet Admitting Unavailable Kan Granger Consulting Unavailable Norjanice, Jose Maria Consulting Unavailable Hebert, Geovani Consulting Unavailable Kuzejermaine, Elvin Consulting Unavailable TylerManda gaston Consulting Unavailable Paracha, Marcelino Consulting Unavailable Tesar, Steve Consulting Unavailable Wadonna, Agus Consulting Unavailable Marina Solis Attending Unavailable Parsi, Harjeet Consulting Unavailable Parsi, Harjeet Admitting Unavailable PROVIDER, UNKNOWN Attending Unavailable PATIENT, SELF Referring Unavailable PROVIDER, UNKNOWN Admitting Unavailable PROVIDER, UNKNOWN Attending Unavailable PROVIDER, UNKNOWN Admitting Unavailable PROVIDER, UNKNOWN Attending Unavailable PROVIDER, UNKNOWN Admitting Unavailable PROVIDER, UNKNOWN Admitting Unavailable PROVIDER, UNKNOWN Attending Unavailable PROVIDER, UNKNOWN Admitting Unavailable PROVIDER, UNKNOWN Attending Unavailable PROVIDER, UNKNOWN Attending Unavailable PROVIDER, UNKNOWN Admitting Unavailable House, Fadi Primary Care Unavailable Map[place], Tondra K Admitting Unavailable Mapus, Tondra K Attending Unavailable House, Fadi Primary Care Unavailable [facility] Consulting Unavailable Kameron Dos Santos Attending Unavailable Albert Woods Admitting Unavailable HOUSE, FADI P Attending Unavailable HOUSE, FADI P Primary Care Unavailable HOUSE, FADI P Primary Care Unavailable Remi Iyer MD Attending Unavailable HOUSE, FADI P Primary Care Unavailable HOUSE, FADI P Primary Care Unavailable Remi Iyer MD Attending Unavailable Allergies Allergy Classification Reported Allergen(s) Allergy Type Date of Onset Reaction(s) Facility (2 sources) Promethazine; Translations: [Phenergan] Drug Allergy 6 [facility] Repository (20 sources) Promethazine; Translations: [promethazine] Drug Allergy 6 Other: See Comments [employer] Phone: (2 sources) Promethazine Drug Allergy 3 [facility] Repository Medications Current Medications Medication Drug Class(es) [...] UP TO 7 DAYS 0 10/08/2020 Active [id number] 200 actuat albuterol 0.09 mg/actuat metered dose inhaler (20 sources) beta2-Adrenergic Agonist Start: 08-02-2023 take 1 puff(s) by inhalation every four hours Albuterol Sulfate Active 2 PUFF INHALATION Q4H August 02, 2023 12:00am Start: 04-15-2023 End: 04-17-2023 take 1 puff(s) by inhalation every four hours Albuterol Sulfate Discontinued 2 PUFF INHALATION Q4H April 14, 2023 11:00pm April 17, 2023 1:35pm Start: 12-18-2019 End: 01-27-2021 take 2.5 mg by inhalation every four hours Albuterol Sulfate Discontinued 2.5 MG INHALATION Q4H December 23, 2019 11:00pm January 27, 2021 12:52pm Start: 12-18-2019 End: 01-27-2021 take 1 puff(s) by inhalation every four hours Albuterol Sulfate (Ventolin Hfa) 90 mcg/actuation Hfa Aerosol Inhaler Discontinued 2 PUFF INHALATION Every 4 hours December 23, 2019 11:00pm January 27, 2021 12:52pm take 2 puff(s) by in halation every [...] Amlodipine Active 10 MG PO Daily April 14, 2023 11:00pm Start: 02-23-2020 take 1 tablet by jacobo th once daily amLODIPine (NORVASC) 2.5 MG tablet TK 1 T PO QD 0 02/23/2020 Active Start: 12-24-2019 End: 01-27-2021 take 2.5 mg by mouth once daily Amlodipine Discontinue d 2.5 MG PO Daily December 23, 2019 11:00pm January 27, 2021 12:52pm take 1 tablet by jacobo th every [...] Start: 01-27-2021 take 2 tablets by mo [facility] once daily vitamin C (ASCORBIC ACID) 500 MG tablet Indications: Proliferative diabetic retinopathy of both eyes associated with type 2 diabetes mellitus, unspecified proliferative retinopathy type (HCC) , Vitreous hemorrhage of left eye (HCC) Take 500 mg by mouth daily. 0 01/27/2021 Active Start: 01-27-2021 take 2 tablets by mo [facility] once daily vitamin C (ASCORBIC ACID) 500 [...] Tablet Discontinued 500 MG PO Daily August 13, 2021 11:00pm April 15, 2023 10:07pm Vitamin C 500 MG Oral Capsule TAKE [...] Tablet,Chewable Discontinued 81 MG PO Daily August 13, 2021 11:00pm April 15, 2023 10:08pm Start: 12-30-2020 take 1 tablet by jacobo th once daily aspirin 81 MG chewable tablet Take 1 tablet by mouth daily 30 tablet 3 12/30/2020 Active Start: 12-29-2020 aspirin chewab le tablet 81 mg Start: 12-18-2019 End: 01-27-2021 take 81 mg by mouth once daily Aspirin Discontinued 81 MG PO Daily December 23, 2019 11:00pm January 27, 2021 12:52pm take 1 tablet by jacobo th once daily Aspirin 81 MG 1 tablet Orally Once a day Active End: 12-29-2020 take 1 tablet by mouth once daily aspirin 325 MG tablet Take 325 mg by mouth daily 0 12/29/2020 Discontinued (Stop Taking at Discharge) atorvastatin 80 mg oral tablet (20 sources) HMG-CoA Reductase Inhibitor Start: 01-12-2022 End: 04-15-2023 take 80 mg by mouth in the evening Atorvastatin Active 80 MG ORAL In the EVENING August 02, 2023 12:00am Start: 01-27-2021 End: 01-12-2022 take 40 mg by mouth once daily in the evening Atorvastatin Discontinued 40 MG PO Every evening August 13, 2021 11:00pm January 12, 2022 2:25pm Start: 12-29-2020 take 40 mg by mouth once daily 40 mg, Oral, NIGHTLY, First dose on Lore 12/29/20 at 2100 Start: 12-18-2019 End: 01-27-2021 take 40 mg by mouth once daily at bedtime Atorvastatin Discontinued 40 MG PO Daily at bedtime December 23, 2019 11:00pm January 27, 2021 12:52pm benzonatate 100 mg oral capsule (2 sources) [...] MG PO Twice daily April 15, 2023 10:19pm take 1 tablet by jacobo th once daily Bumetanide 1 MG Oral Tablet TAKE 1 TABLET DAILY. Quantity: 90 Refills: 3 Ordered: 07-Mar-2022 Cordell Rodriguez APRN-Aicha OVALLE Active cephalexin 500 mg oral capsule (14 [...] tablet (20 sources) Serotonin Reuptake Inhibitor Start: 04-17-2023 take 20 mg by mouth once daily Citalopram Active 20 MG ORAL DAILY August 02, 2023 12:00am Start: 08-14-2021 End: 04-15-2023 take 20 mg by mouth once daily in the morning Citalopram Discontinued 20 MG PO Every morning August 13, 2021 11:00pm April 15, 2023 10:13pm Start: 10-24-2020 End: 06-21-2021 take 20 mg by mouth once daily in the morning Citalopram Discontinued 20 MG PO Every morning January 26, 2021 11:00pm June 21, 2021 10:32am clindamycin 300 mg oral capsule (14 sources) Lincosamide Antibacterial Start: 02-23-2020 clindamycin (CLEOCIN) 300 MG capsule TK ONE C PO TID 0 02/23/2020 Active clopidogrel 75 mg oral tablet (20 sources) [id number] Platelet Inhibitor Start: 04-17-2023 take 75 mg by mouth once daily Clopidogrel Active 75 MG PO Daily April 16, 2023 11:00pm Start: 12-18-2019 End: 04-15-2023 take 75 mg by mouth once daily Clopidogrel Discontinue d 75 MG PO Daily August 13, 2021 11:00pm April 15, 2023 10:13pm collagenase 0.25 unt/mg topical ointment (1 source) Collagen-specific Enzyme collage nase (SANTYL) 250 UNIT/GM ointment Apply topically daily Apply topically to incision on Saturday, Saturday, Saturday. 0 Active cyproheptadine hydrochloride 4 mg oral tablet (20 sources) Start: 10-23-2020 cyproheptadine (PERIACTIN) 4 MG tablet DAPTOmycin 500 mg injection (15 sources) Lipopeptide Antibacterial daptom ycin (CUBICIN) 500 MG injection Indications: Proliferative diabetic [...] 0 Active empagliflozin 10 mg oral tablet (16 sources) Sodium-Glucose Cotransporter 2 Inhibitor Start: 05-16-2022 take 1 tablet by mouth once daily Empagliflozin (Jardiance) 10 mg Tablet Active 10 MG ORAL DAILY August 02, 2023 12:00am 1 ml erenumab-aooe 70 mg/ml auto-injector (14 sources) Start: 12-26-2018 Erenumab-aooe (AIMOVIG) 70 MG/ML SOAJ Inject into the muscle every 30 days. 0 12/26/2018 Active ergocalciferol 1.25 mg oral capsule (6 sources) Provitamin D2 Compound Start: 04-11-2023 Ergocalciferol (Vitamin D2) (Vitamin D2) 1,250 mcg (50,000 unit) Capsule Active 75856 UNIT ORAL Every Week August 02, 2023 12:00am Start: 04-11-2023 take 1 capsule by or uth every week Ergocalciferol 1.25 MG (64632 UT) 1 capsule Orally Q week for 90 days Mar, Active erythromycin 0.005 mg/mg ophthalmic ointment (6 sources) Macrolide, Macrolide Antimicrobial Start: 01-01-2023 erythromycin (ROMYCIN) 5 MG/GM ophthalmic ointment Place 0.5 Inches in both eyes 4 times daily. 3.5 g 0 01/01/2023 Active fluticasone propionate 0.05 mg/actuat metered dose nasal spray (12 sources) Corticosteroid Start: 08-02-2023 take 1 spray(s) nasal route once daily Fluticasone Propionate Active 2 SPRAY NASAL DAILY August 02, 2023 12:00am administer into each nostril Start: 04-17-2023 Fluticasone Pr opionate Active 2 SPRAY INTRANASAL Every morning April 16, 2023 11:00pm take 1 spray(s) nasa l route once [...] daily 60 December 24, 2019 10:24am 12-24-2019 [facility] ([id number]) 0 12/24/2019 Active Start: 12-24-2019 End: 01-27-2021 take 1 puff(s) by inhalation twice daily Fluticasone Propion-Salmeterol Discontinued 1 PUFF INHALATION Twice daily 60 December 23, 2019 11:00pm January 27, 2021 12:52pm Start: 12-18-2019 End: 12-24-2019 take 1 puff(s) by inhalation twice daily Fluticasone Propion-Salmeterol (Advair Diskus) 100-50 mcg/dose Blister With Device Discontinued 1 PUFF INHALATION Twice daily December 18, 2019 10:58pm December 24, 2019 5:24pm Start: 12-18-2019 End: 12-24-2019 take 1 puff(s) by inhalation twice daily Fluticasone Propion-Salmeterol (Advair Diskus) 100-50 mcg/dose Blister With Device Discontinued 1 PUFF INHALATION Twice daily December 18, 2019 12:00am December 24, 2019 4:24pm Start: 12-18-2019 End: 12-24-2019 take 1 puff(s) by inhalation twice daily Fluticasone Propion-Salmeterol (Advair Diskus) 100-50 mcg/dose Blister With Device Discontinued 1 PUFF INHALATION Twice daily December 18, 2019 1:00am December 24, 2019 5:24pm glucagon (rdna) 1 mg injection (1 source) [...] as needed Orally every 12 hrs Active sodium hypochlorite 1.25 mg/ml topical spray (14 sources) Start: 10-07-2020 sodium hypoclhorite (DAKINS) 0.125 % SOLN external solution Dakin's [...] SUBCUT Before meals and at bedtime August 13, 2021 11:00pm April 15, 2023 10:14pm Start: 08-14-2021 End: 04-15-2023 inject 10 [IU] by subcutaneous injection once before mealtime Insulin Aspart U-100 (Novolog Flexpen U-100 Insulin) 100 unit/mL (3 mL) Insulin Pen Discontinued 10 UNITS SUBCUT 3x/Day before meals August 13, 2021 11:00pm April 15, 2023 10:14pm Start: 08-14-2021 End: 04-15-2023 Insulin Aspart U-100 [...] 3X/Day with meals and bedtime 08 12January 26, 2021 11:00pm August 14, 2021 4:16pm Start: 01-27-2021 End: 08-14-2021 Insulin Aspart U-100 [...] 6 UNITS SUBCUT 3x/Day before meals December 23, 2019 11:00pm January 27, 2021 12:52pm Start: 12-24-2019 End: 01-27-2021 Insulin Aspart U-100 (Novolo g Flexpen U-100 Insulin) 100 unit/mL (3 mL) Insulin Pen Discontinued 0 UNITS SUBCUT 3X/Day with meals and bedtime December 23, 2019 11:00pm January 27, 2021 12:52pm Start: 12-24-2019 End: 01-27-2021 inject 6 [IU] [...] and bedtime December 24, 2019 10:24am 12-24-2019 [facility] ([id number]) 0 12/24/2019 Active NovoLOG FlexPen 100 UNIT/ML SOLN INJECT SUBCUTANEOUSLY DIRECTED. Quantity: 0 Refills: 0 Ordered: 17-Jan-2022 DO Active Insulin Aspart F lexPen 100 UNIT/ML as directed Subcutaneous tid Not-Taking NovoLOG 100 UNIT /ML as directed Subcutaneous Active 3 ml insulin glargine 100 unt/ml pen injector (20 sources) Insulin Analog Start: 04-15-2023 Insulin Glargi ne (Lantus Solostar U-100 Insulin) 100 unit/mL (3 mL) insulin pen Active 42 UNIT SUBCUT Twice daily April 14, 2023 11:00pm Start: 10-23-2020 Lantus SoloSta r 100 UNIT/ML [...] oral tablet (20 sources) Nitrate Vasodilator Start: 01-19-2022 take 60 mg by mouth once daily Isosorbide Mononitrate Active 60 MG ORAL DAILY August 02, 2023 12:00am Start: 10-23-2020 End: 04-15-2023 take 30 mg by mouth once daily Isosorbide Mononitrate Discontinued 30 MG PO Daily at 0600 30 January 11, 2022 11:00pm April 15, 2023 10:15pm isosorbide dinitrate 30 mg oral tablet (14 [...] mg oral tablet (20 sources) l-Thyroxine Start: 01-28-20 take 2 tablets by mouth once daily levothyroxine (SYNTHROID) 25 MCG tablet Indications: Proliferative diabetic retinopathy of both eyes associated with type 2 diabetes mellitus, unspecified proliferative retinopathy type (HCC) , Vitreous hemorrhage of left eye (HCC) Take 25 mcg by mouth daily. 0 01/27/2021 Active Start: 12-29-2020 End: 08-14-2021 take 25 ug by mouth once daily Levothyroxine Discontin ued 25 MCG PO Daily at 0630 30 January 26, 2021 11:00pm August 14, 2021 4:16pm take 1 tablet by jacobo th once daily in the morning Levothyroxine Sodium [...] by subcutaneous injection once daily Liraglutide (Victoza 3-Crsita) 0.6 mg/0.1 mL (18 mg/3 mL) pen injector Active 0 SUBCUT .COMPLEX January 12, 2022 3:26pm inject 0.6mg subcutaneously once daily x 7 days; then 1.2mg daily, not to exceed 1.8mg/day Start: 01-12-2022 End: 04-15-2023 Liraglutide (Victoza 3-Crista) 0.6 mg/0.1 mL (18 mg/3 mL) pen injector Discontinued 0 SUBCUT .COMPLEX January 11, 2022 11:00pm April 15, 2023 10:18pm 1.8mg/day losartan potassium 50 mg oral tablet (20 sources) Angiotensin 2 Receptor Dale Start: 04-21-2022 take 50 mg by mouth once daily in the morning Losartan Active 50 MG PO Every morning April 21, 2022 8:50pm Start: 02-14-2022 take 50 mg by mouth once daily Losartan Active 50 MG ORAL DAILY August 02, 2023 12:00am Start: 01-12-2022 End: 04-21-2022 take 25 mg by mouth once daily in the morning Losartan Discontinued 25 MG PO Every morning January 11, 2022 11:00pm April 21, 2022 8:52pm take 1 tablet by jacobo th every twenty-four hours Losartan Potassium 100 MG 1 tablet Orally Once a day Active melatonin 10 mg oral tablet (9 sources) Start: 01-10-2022 take 20 mg by mouth at bedtime Melatonin Active 20 MG PO Bedtime January 09, 2022 11:00pm Melatonin 10 MG Oral Tablet Take as directed Quantity: 0 Refills: 0 Ordered: 17-Jan-2022 DO Active take 2 tablets by mo uth once daily at bedtime melatonin 3 MG [...] 2.5 MG PO every Saturday, Saturday, and Friday April 14, 2023 11:00pm Start: 04-09-2023 metOLazone 2.5 MG 1 tablet Orally 1 tablet every SAT - SAT - SAT for 90 days Mar, Active take 1 tablet by jacobo th once daily for edema metOLazone (ZAROXOLYN) 2.5 MG tablet Take 2.5 mg by mouth daily By mouth every Saturday and for edema 0 Active mometasone furoate 1 mg/ml topical cream (14 sources) Corticosteroid mometasone (ELOC ON) 0.1 % cream Indications: Proliferative diabetic retinopathy of both eyes associated with type 2 diabetes mellitus, unspecified proliferative retinopathy type (HCC) , Vitreous hemorrhage of left eye (HCC) mometasone 0.1 % topical cream 0 Active 24 hr nicotine 0.875 mg/hr transdermal system (20 sources) Cholinergic Nicotinic Agonist Start: apply 1 dose transdermal route once daily Nicotine Active 1 PATCH TRANSDERML Daily January 11, 2022 11:00pm Start: 12-18-2019 nicotine (JUAN R DERM CQ) 14 mg/24HR patch Place 1 Patch on the skin. 0 12/18/2019 Active Start: 12-18-2019 End: 01-27-2021 Nicotine Discontinued 1 EACH TRANSDERML Q24H December 23, 2019 11:00pm January 27, 2021 12:52pm apply 1 dose transde rmal route once daily Nicotine 14 MG/24HR 1 patch to skin Transdermal Once a day Active nitroglycerin 0.4 mg sublingual tablet (20 sources) Nitrate Vasodilator Start: 08-02-2023 Nitroglyce rin Active 0.4 MG SUBLINGUAL Q5M August 02, 2023 12:00am do not exceed 3 doses per episode Start: 01-12-2022 End: 04-15-2023 Nitroglycerin Discontinued 0 .4 MG SUBLINGUAL Q5M January 11, 2022 11:00pm April 15, 2023 10:18pm Start: 01-30-2021 apply 0.1 mg transde rmal [...] 1 EACH TRANSDERML Daily at 0600 August 13, 2021 11:00pm January 12, 2022 2:25pm Nitroglycerin 0. 4 MG as directed Sublingual Active apply 0.1 mg transde rmal route every hour as needed nitroGLYCERIN (NITRODUR) 0.1 MG/HR Place 1 patch onto the skin 2 times daily as needed For HTN 0 Active nystatin 100 unt/mg topical powder (3 sources) Polyene Antifungal Start: 10-20-2023 Nystatin (N yamyc) 100,000 unit/gram Powder Active 1 APPLIC TOPICAL DAILY August 02, 2023 12:00am apply to stomach Start: 04-18-2023 Nystatin (Nyst op) 100,000 unit/gram Powder Active 1 APPLIC TOPICAL Twice daily April 17, 2023 11:00pm omeprazole 20 mg delayed release oral capsule (20 sources) Proton Pump Inhibitor Start: 01-27-2021 take 2 capsules by mouth once daily omeprazole (PRILOSEC) 20 MG capsule Indications: Proliferative diabetic retinopathy of both eyes associated with type 2 diabetes mellitus, unspecified proliferative retinopathy type (HCC) , Vitreous hemorrhage of left eye (HCC) Take 20 mg by mouth daily. 0 01/27/2021 Active Start: 01-27-2021 End: 08-14-2021 take 20 mg by mouth once daily Omeprazole Active 20 MG ORAL DAILY August 02, 2023 12:00am 2 ml ondansetron 2 mg/ml injection (16 sources) Serotonin-3 Receptor Antagonist Start: 12-28-2020 End: 12-28-2020 ondansetron (ZOFRAN) injection 4 mg ondansetron (ZOF RAN-ODT) 4 MG disintegrating tablet ondansetron [address] 2 tablets twice a day by translingual route. 0 Active Pen Chambers 5/16 (19 sources) Start: 02-14-2022 Pen Chambers 5/ 16 Use with insulin pen needles SQ 6 times per day for 90 days February, Active Start: 02-14-2022 Pen Chambers 5/ 16 Use with insulin pen needles SQ 6 times per day for 90 day(s) February, Active Pen Chambers 5/16 Use with insulin pen needles SQ 6 times per day for 90 days Active phenylephrine hydrochloride 25 mg/ml ophthalmic solution (1 source) alpha-1 Adrenergic Agonist Start: 09-03-2022 End: 09-04-2022 PHENYLephrine 2.5 % 1 Drop (AK-DILATE, YVES-SYNEPHRINE) polyethylene glycol 3350 38005 mg powder for oral solution (8 sources) Osmotic Laxative Start: 08-02-2023 take 17 g by mouth once daily Polyethylene Glycol 3350 Active 17 GM ORAL DAILY August 02, 2023 12:00am Start: 08-14-2021 End: 01-10-2022 Polyethylene Glycol 3350 (Mi ralax) 17 gram Powder In Packet Discontinued 17 GM PO Daily August 13, 2021 11:00pm January 10, 2022 12:40pm Start: 12-28-2020 polyethylene g lycol (GLYCOLAX) packet 17 g potassium chloride 20 meq extended release oral tablet (20 sources) Start: 08-02-2023 take 20 mEq by mouth once daily Potassium Chloride Active 20 MEQ ORAL DAILY August 02, 2023 12:00am Start: 07-28-2021 End: 04-15-2023 Potassium Chloride (Klor-Con M20) 20 mEq Tablet,Er Particles/Crystals Discontinued 20 MEQ PO Daily August 13, 2021 11:00pm April 15, 2023 10:20pm Start: 01-27-2021 take 2 tablets by [facility] once daily potassium chloride SA (K-DUR) 20 [...] Discontinued 40 MEQ PO Daily 60 January 26, 2021 11:00pm July 28, 2021 1:52pm Start: 12-18-2019 End: 01-27-2021 Potassium Chloride (Klor-Con 10) 10 mEq Tablet Extended Release Discontinued 10 MEQ PO Daily December 23, 2019 11:00pm January 27, 2021 12:52pm take 2 tablets by [facility] once daily Potassium Chloride Ria ER 20 MEQ Oral Tablet Extended Release TAKE 2 TABLETS DAILY. Quantity: 0 Refills: 0 Ordered: 19-Jan-2022 DO Active take 1 tablet by jacobo every twelve hours Klor-Con 10 10 MEQ 1 tablet with food Orally Twice a day Active take 1 tablet by jacobo once daily, then take 1 tablet by [...] tablet (20 sources) Nonergot Dopamine Agonist Start: 04-17-2023 take 2 mg by mouth three times daily Ropinirole Active 2 MG ORAL THREE TIMES A DAY August 02, 2023 12:00am Start: 12-29-2020 End: 04-15-2023 take 2 mg by mouth three times daily Ropinirole Discontinued 2 MG PO Three times daily August 13, 2021 11:00pm April 15, 2023 10:20pm Start: 12-24-2019 rOPINIRole (RE QUIP) 0.5 MG tablet 1.5 mg. 0 12/24/2019 Active Start: 12-24-2019 End: 01-27-2021 take 1.5 mg by mouth three times daily Ropinirole Discontinued 1.5 MG PO Three times daily December 23, 2019 11:00pm January 27, 2021 12:52pm Start: 12-18-2019 End: 12-24-2019 take 1.5 mg by mouth three times daily Ropinirole Discontinued 1.5 MG PO Three times daily December 18, 2019 12:00am December 24, 2019 4:24pm take 1 tablet by jacobo th once daily at bedtime rOPINIRole HCl 0.5 MG 1 tablet 1 to 3 hours before bedtime Orally Once a day Active Sennosides (Senna Lax) 8.6 mg Tablet (12 sources) Start: 08-14-2021 take 2 tablets by mouth once daily at bedtime Sennosides (Senna Lax) 8.6 mg Tablet Active 17.2 MG PO Daily at bedtime 60 August 14, 2021 10:15am Start: 08-14-2021 End: 04-15-2023 take 2 tablets by mouth once daily at bedtime Sennosides (Senna Lax) 8.6 mg Tablet Discontinued 17.2 MG PO Daily at bedtime 60 August 13, 2021 11:00pm April 15, 2023 10:20pm Start: 08-14-2021 End: 04-15-2023 take 2 tablets by mouth once daily at bedtime Sennosides (Senna Lax) 8.6 mg Tablet Discontinued 17.2 MG PO Daily at bedtime 60 August 14, 2021 12:00am April 15, 2023 11:20pm Start: 12-24-2019 End: 01-27-2021 take 2 tablets by mouth once daily Sennosides (Senna Lax) 8.6 mg Tablet Discontinued 2 TAB PO DAILY@December 24, 2019 10:24am January 27, 2021 1:52pm Start: 12-24-2019 End: 01-27-2021 take 2 tablets by mouth once daily Sennosides (Senna Lax) 8.6 mg Tablet Discontinued 2 TAB PO DAILY@December 23, 2019 11:00pm January 27, 2021 12:52pm Start: 12-24-2019 End: 01-27-2021 take 2 tablets by mouth once daily Sennosides (Senna Lax) 8.6 mg Tablet Discontinued 2 TAB PO DAILY@December 24, 2019 12:00am January 27, 2021 1:52pm sennosides, mcfp 8.6 mg oral tablet (15 sources) Start: 12-24-2019 senna (SENOKOT ) 8.6 MG TABS tablet sennosides, INTERMEDIATE Sennosides Active 2 TAB Oral DAILY@December 24, 2019 10:24am 12-24-2019 [facility] ([id number]) 0 12/24/2019 Active take 2 tablets by mo uth every twenty-four hours Senna Laxative 8.6 MG [...] capsule (20 sources) alpha-Adrenergi c Dale Start: 04-17-20 take 2 mg by mouth once daily Terazosin Active 2 MG PO Daily April 16, 2023 11:00pm Start: 01-13-2021 End: 04-15-2023 take 2 mg by mouth once daily Terazosin Discontinued 2 MG PO Daily August 13, 2021 11:00pm April 15, 2023 10:20pm Terazosin HCl 2 MG TABS TAKE 1 TABLET DAILY. Quantity: 0 Refills: 0 Ordered: 17-Jan-2022 DO Active tiZANidine 2 mg oral tablet (14 sources) Central alpha-2 Adrenergic Agonist Start: 12-30-2018 tizanidine (ZANAFLEX) 2 MG tablet Take by mouth. 0 12/30/2018 Active tropicamide 10 mg/ml ophthalmic solution (1 [...] tablet 650 mg Start: 12-24-2019 End: 04-15-2023 take 500 mg by mouth every four hours Acetaminophen Discontinued 500 MG PO Q4H 100 August 13, 2021 11:00pm April 15, 2023 10:06pm take 1 tablet by jacobo th every four hours as needed for pain Acetaminophen 500 MG as directed Orally 1 tablet by mouth every 4 hours as needed for pain Active atenolol 50 mg oral tablet (20 sources) beta-Adrenergic Dale Start: 12-28-2018 End: 12-24-2019 take 50 mg by mouth once daily Atenolol Discontinued 50 MG PO Daily December 18, 2019 12:00am December 24, 2019 4:24pm bacitracin 0.5 unt/mg topical ointment (20 sources) Start: 12-24-2019 End: 01-27-2021 Bacitracin Discontinued 1 APPLIC TOPICAL Daily December 24, 2019 4:24pm January 27, 2021 12:52pm Start: 12-24-2019 bacitracin 500 UNIT/GM ointment Bacitracin Bacitracin Active 1 APPLIC Topical Daily December 24, 2019 5:24pm 12-24-2019 [facility] ([id number]) 0 12/24/2019 Active Start: 12-24-2019 bacitracin 500 UNIT/GM ointment Bacitracin Bacitracin Active 1 APPLIC Topical Daily December 24, 2019 5:24pm 12-24-2019 [facility] ([id number]) 0 12/24/2019 Active Bacitracin Activ e bevacizumab [...] bevacizumab (AVASTIN) 1.25MG /0.05 mL intravitreal injection 24 hr buPROPion hydrochloride 300 mg extended release oral tablet (20 sources) [...] Discontinued 300 MG PO Every morning August 13, 2021 11:00pm January 10, 2022 12:41pm carvedilol 12.5 mg oral tablet (20 sources) alpha-Adrenergic Dale, beta-Adrenergic Dale Start: 04-17-2023 End: 04-18-2023 take 25 mg by mouth twice daily at mealtime Carvedilol Discontinued 25 MG PO Twice daily with meals April 17, 2023 1:24pm April 18, 2023 4:32pm Start: 01-27-2021 End: 04-17-2023 take 12.5 mg by mouth twice daily at mealtime Carvedilol Discontinued 12.5 MG PO Twice daily with meals August 13, 2021 11:00pm April 17, 2023 1:25pm Start: 12-29-2020 take 25 mg by mouth twice daily at mealtime Carvedilol Active 25 MG ORAL TWICE A DAY August 02, 2023 12:00am must administer with a meal/food take 2 tablets by mo [facility] twice daily CARvedilol (COREG) 12.5 MG tablet carvedilol 12.5 mg tablet Take 2 tablets twice a day by oral route. 0 Active cefepime (6 sources) Cephalosporin Antibacterial Start: 06-21-2021 End: 08-14-2021 take 2 g intravenously every eight hours Cefepime Discontinued 2 GM IV Q8H June 21, 2021 2:01pm August 14, 2021 5:16pm Start: 06-21-2021 End: 08-14-2021 take 2 g intravenously every eight hours Cefepime Discontinued 2 GM IV Q8H June 20, 2021 11:00pm August 14, 2021 4:16pm Start: 06-21-2021 End: 08-14-2021 take 2 g intravenously every eight hours Cefepime Discontinued 2 GM IV Q8H June 21, 2021 12:00am August 14, 2021 5:16pm cyclobenzaprine hydrochloride 5 mg oral tablet (20 sources) Muscle Relaxant Start: 08-14-2021 End: 04-15-2023 take 5 mg by mouth every eight hours Cyclobenzaprine Discontinued 5 MG PO Q8H 60 August 13, 2021 11:00pm April 15, 2023 10:13pm [facility] daily as needed for muscle spasms Cyclobenzaprine HCl 5 MG 1 tablet Orally three times daily as needed for muscle spasms for 30 days Active docusate sodium 100 mg oral capsule (20 sources) Start: 08-14-2021 End: 01-10-2022 take 1 capsule by mouth three times daily Docusate Sodium (Dok) 100 mg Capsule Discontinued 100 MG PO Three times daily 90 August 13, 2021 11:00pm January 10, 2022 12:40pm Start: 02-23-2020 DOK 100 MG cap mikki TK 1 C PO QD 0 02/23/2020 Active Start: 12-24-2019 End: 01-27-2021 take 1 capsule by mouth twice daily Docusate Sodium (Dok) 100 mg Capsule Discontinued 100 MG PO Twice daily 60 December 23, 2019 11:00pm January 27, 2021 12:52pm escitalopram 5 mg oral tablet (20 sources) Serotonin Reuptake Inhibitor Start: 01-27-2021 End: 08-14-2021 take 5 mg by mouth once daily Escitalopram Oxalate Discontinued 5 MG PO Daily 30 January 26, 2021 11:00pm August 14, 2021 4:16pm Start: 12-29-2020 take 5 mg by mouth once daily 5 mg, Oral, DAILY, First dose on Lore 12/29/20 at 1000 fludrocortisone acetate 0.1 mg oral tablet (20 sources) Start: 12-18-2019 End: 08-14-2021 take 0.1 mg by mouth twice daily Fludrocortisone Discontinued 0.1 MG PO Twice daily 60 January 26, 2021 11:00pm August 14, 2021 4:16pm [facility] Fludrocortisone Acetate 0.1 MG 1 tablet Orally Three times a Week Active furosemide 40 mg oral tablet (20 sources) Loop Diuretic Start: 01-27-2021 End: 08-14-2021 take 40 mg by mouth twice daily Furosemide Discontinued 40 MG PO BID@0800,1600 60 January 26, 2021 11:00pm August 14, 2021 4:16pm furosemide (LASI X) 40 MG tablet Indications: [...] day related to essential hypertension. 0 Active gabapentin 300 mg oral capsule (6 sources) Anti-epileptic Agent Start: 08-14-2021 End: 01-10-2022 take 300 mg by mouth twice daily Gabapentin Discontinued 300 MG PO Twice daily August 13, 2021 11:00pm January 10, 2022 12:40pm hydroCHLOROthiazide 25 mg oral tablet (20 sources) Thiazide Diuretic Start: 12-18-2019 End: 01-27-2021 take 25 mg by mouth once daily Hydrochlorothiazide Discontinued 25 MG PO Daily December 23, 2019 11:00pm January 27, 2021 12:52pm End: 12-29-2020 hydroCHLOROthiazide (HYDRODI URIL) 50 MG tablet Take 25 mg by mouth daily 0 12/29/2020 Discontinued (Stop Taking at Discharge) 3 ml insulin detemir 100 unt/ml pen injector (20 sources) Insulin Analog Start: 12-24-2019 End: 06-21-2021 Insulin Detemir U-100 (Levemir Flextouch U-100 Insuln) 100 unit/mL (3 mL) Insulin Pen Discontinued 20 UNIT SUBCUT Twice daily 10 12January 26, 2021 11:00pm June 21, 2021 10:31am Start: 12-24-2019 End: 04-21-2022 Insulin Detemir U-100 (Levem ir Flextouch U100 Insulin) 100 unit/mL (3 mL) Insulin Pen Discontinued 48 UNIT SUBCUT Twice daily August 13, 2021 11:00pm April 21, 2022 8:52pm Start: 12-24-2019 End: 08-14-2021 Insulin Detemir U-100 (Levem ir Flextouch U100 Insulin) 100 unit/mL (3 mL) Insulin Pen Discontinued 30 UNIT SUBCUT Twice daily June 21, 2021 10:31am August 14, 2021 4:16pm Start: 12-24-2019 End: 08-03-2023 Insulin Detemir 100 UNIT/ML SOPN insulin detemir Insulin Detemir U-100 Active 50 UNITS Subcutaneous Daily December 24, 2019 10:24am 12-24-2019 [facility] ([id number]) 0 12/24/2019 Active Start: 12-24-2019 End: 01-27-2021 Insulin Detemir U-100 (Levem ir Flextouch U-100 Insuln) 100 unit/mL (3 mL) Insulin Pen Discontinued 50 UNITS SUBCUT Daily December 23, 2019 11:00pm January 27, 2021 12:52pm Levemir FlexTouc h 100 UNIT/ML 40 units Subcutaneous TWICE A DAY for 90 days (titrate up to max 90 units/day) Active Levemir FlexPen 100 UNIT/ML Subcutaneous Solution USE DIRECTED Quantity: 0 Refills: 0 Ordered: 17-Jan-2022 DO Active Levemir FlexTouc h 100 UNIT/ML 42 units Subcutaneous Twice per day for 90 days (Expect up to 100 units daily) Active Insulin Detemir U-100 (Levem ir Flextouch U100 Insulin) 100 unit/mL (3 mL) insulin pen (2 sources) Start: 04-21-2022 End: 04-17-2023 Insulin Detemir U-100 (Levem ir Flextouch U100 Insulin) 100 unit/mL (3 mL) insulin pen Discontinued 42 UNIT SUBCUT Twice daily April 21, 2022 8:50pm April 17, 2023 1:33pm Start: 04-21-2022 End: 04-17-2023 Insulin Detemir U-100 (Levem ir Flextouch U100 Insulin) 100 unit/mL (3 mL) insulin pen Discontinued 42 UNIT SUBCUT Twice daily April 21, 2022 9:50pm April 17, 2023 2:33pm iopamidol (ISOVUE-370) 76 % injection 100 mL (1 source) Start: 12-20-2020 End: 12-20-2020 iopamidol (ISOVUE-370) 76 % injection 100 mL metFORMIN hydrochloride 1000 mg oral tablet (6 sources) Biguanide Start: 06-21-2021 End: 08-14-2021 take 1000 mg by mouth twice daily Metformin Discontinued 1000 MG PO Twice daily 90 June 20, 2021 11:00pm August 14, 2021 4:16pm metoprolol tartrate 50 mg oral tablet (20 sources) beta-Adrenergic Dale Start: 12-24-2019 End: 01-27-2021 take 50 mg by mouth twice daily Metoprolol Tartrate Discontinued 50 MG PO Twice daily 60 December 23, 2019 11:00pm January 27, 2021 12:52pm 1 ml morphine sulfate 2 mg/ml cartridge (1 source) Opioid Agonist Start: 12-28-2020 End: 12-28-2020 morphine (PF) injection 2 mg oxyCODONE hydrochloride 5 mg oral tablet (20 sources) Opioid Agonist Start: 07-28-2021 End: 01-10-2022 take 5 mg by mouth every four hours Oxycodone Discontinued 5 MG PO Every 4 hours 12 05August 14, 2021 January 10, 2022 12:40pm Start: 01-27-2021 End: 07-28-2021 take 5 mg by mouth every six hours Oxycodone Discontinued 5 MG PO Every 6 hours 10 05January 27, 2021 July 28, 2021 1:52pm Start: 10-01-2020 take 1 tablet by jacobo every eight hours for pain oxyCODONE 5 MG immediate release tablet take 1 tablet by mouth every 8 hours if needed for pain 0 10/01/2020 Active pregabalin 75 mg oral capsule (20 sources) Start: 01-27-2021 End: 08-14-2021 take 75 mg by mouth once daily at bedtime Pregabalin Discontinued 75 MG PO Daily at bedtime January 26, 2021 11:00pm August 14, 2021 4:16pm Start: 09-26-2020 take 1 capsule by mo [facility] three times daily pregabalin (LYRICA) 75 MG [...] polystyrene (KAYEXALATE) 15 GM/60ML suspension 15 g traMADol hydrochloride 50 mg oral tablet (20 sources) Opioid Agonist Start: 12-24-2019 End: 01-27-2021 take 50 mg by mouth every four hours Tramadol Discontinued 50 MG PO Q4H 20 December 23, 2019 11:00pm January 27, 2021 12:52pm take 1 tablet by jacobo th every twenty-four hours traMADol HCl 50 MG 1 tablet as needed Orally Once a day Active traZODone hydrochloride 50 mg oral tablet (20 sources) Serotonin Reuptake Inhibitor Start: 04-16-2023 End: 04-17-2023 Trazodone Discontinued MG TABLET April 15, 2023 11:00pm April 17, 2023 1:25pm Start: 02-24-2020 End: 04-15-2023 take 50 mg by mouth once daily at bedtime Trazodone Discontinued 50 MG PO Daily at bedtime August 13, 2021 11:00pm April 15, 2023 10:20pm valsartan 320 mg oral tablet (20 sources) Angiotensin 2 Receptor Dale Start: 12-29-2020 take 320 mg by mouth once daily 320 mg, Oral, DAILY, First dose on Sat12/29/20 at 1000 Start: 07-15-2020 End: 08-14-2021 take 320 mg by mouth once daily Valsartan Discontinued 320 MG PO Daily January 26, 2021 11:00pm August 14, 2021 4:16pm zolpidem tartrate 5 mg oral tablet (20 sources) gamma-Aminobutyric Acid-ergic Agonist Start: 12-18-2019 End: 12-24-2019 take 1 tablet by mouth once daily at bedtime Zolpidem (Ambien) 5 mg Tablet Discontinued 5 MG PO Daily at bedtime December 18, 2019 12:00am December 24, 2019 4:24pm Start: 01-01-2019 zolpidem (Ambi en) 10 MG tablet Take by mouth. 0 01/01/2019 Active Problems Active Problems Problem Classification Problem Date Documented Date Episodic/Chronic Acute cerebrovascular disease (20 sources) Cerebrovascular accident; Translations: [Cerebral infarction, unspecified] Onset: 0 01-14-2021 Chronic Acute myocardial infarction (3 sources) Subsequent non-ST segment elevation myocardial infarction; Translations: [Subendocardial infarction, episode of care unspecified] Chronic Administrative/social admission (13 sources) Other reduced mobility; Translations: [Impaired mobility and activities of daily living] Onset: 1 Resolved: 2 12-19-2019 Episodic Allergic reactions (1 source) Allergy status to other drugs, medicaments and biological substances status; Translations: [ALLERGY STATUS OTH RX MED AND BIO SUBST] Onset: 3 Episodic Anxiety disorders (9 sources) Mixed anxiety and depressive disorder; Translations: [Anxiety disorder, unspecified] 07-29-2021 Chronic Asthma (1 source) Unspecified asthma, uncomplicated; Translations: [UNSPECIFIED ASTHMA UNCOMPLICATED] Onset: 2 Chronic Blindness and vision defects (3 sources) Bilateral myopia of eyes; Translations: [Myopia, bilateral] Episodic Chronic kidney disease (19 sources) Chronic kidney disease stage 3; Translations: [Stage 3 chronic kidney disease] Onset: 3 07-29-2021 Chronic Chronic kidney disease (2 sources) Chronic kidney disease; Translations: [CHRONIC KIDNEY DISEASE STAGE 3A] Onset: 3 Chronic obstructive pulmonary disease and bronchiectasis (2 sources) Chronic obstructive pulmonary disease, unspecified; Translations: [Chronic obstructive pulmonary disease with (acute) exacerbation] Onset: 3 Chronic Complications of surgical procedures or medical care (6 sources) Infection of amputation stump; Translations: [Infection of amputation stump, unspecified extremity] 06-18-2021 Episodic Congestive heart failure; nonhypertensive (3 sources) Heart failure, unspecified; Translations: [Acute on chronic diastolic (congestive) heart failure] Onset: 3 Chronic Coronary atherosclerosis and other heart disease (6 sources) Coronary arteriosclerosis; Translations: [Coronary atherosclerosis of unspecified type of vessel, [place] or graft] Onset: 3 Chronic Deficiency and other anemia (1 source) Anemia in chronic kidney disease; Translations: [Anemia of renal disease] Chronic Deficiency and other anemia (5 sources) Anemia of renal disease; Translations: [Anemia in chronic kidney disease] Chronic Deficiency and other anemia (6 sources) Anemia; Translations: [Anemia, unspecified] 01-14-2021 Episodic [...] Resolved: 2 12-19-2019 Chronic Headache; including migraine (6 sources) Headache; Translations: [Headache] 01-14-2021 Episodic Headache; including migraine (1 source) Headache; including migraine; Translations: [HEADACHE UNSPECIFIED] Onset: 2 Hyperplasia of prostate (12 sources) Benign prostatic hyperplasia; Translations: [Benign prostatic hyperplasia without lower urinary tract symptoms] Onset: 3 01-14-2021 Chronic Hypertension with complications and secondary hypertension (18 sources) Hypertensive emergency; Translations: [Hypertensive emergency] Onset: [...] depressive affective disorder, recurrent episode, moderate] Chronic Nonspecific chest pain (20 sources) Chest pain; Translations: [Chest pain, unspecified] Onset: 6 06-18-2021 Episodic Nutritional deficiencies (20 sources) Vitamin D deficiency; Translations: [Vitamin D deficiency, unspecified] Chronic Open wounds of extremities (20 sources) Amputated below knee; Translations: [Complete traumatic amputation at level between knee and ankle, unspecified lower leg, initial encounter] Onset: 1 Resolved: 1 01-13-2021 Chronic Other aftercare (20 sources) Long-term current use of insulin; Translations: [terminal clerk (current) use of insulin] Episodic Other aftercare (4 sources) [facility] (current) use of insulin; Translations: [[facility] current use of insulin Z79.4] Onset: 1 Resolved: 2 Episodic Other aftercare (1 source) terminal clerk (current) use of antithrombotics/antiplat elets; Translations: [[facility]I ANTITHROMBOT/ANTIPLATLET S] Onset: 3 Episodic Other aftercare (1 source) [facility] (current) use of aspirin; Translations: [[facility]I CURRENT USE OF ASPIRIN] Onset: 3 Episodic Other aftercare (1 source) terminal clerk (current) use of oral hypoglycemic drugs; Translations: [FCI USE ORAL HYPOGLYCEMIC DX] Onset: 3 Episodic Other aftercare (1 source) Other halfway (current) drug therapy; Translations: [OTH COLD HEADER OPERATOR CURRENT DRUG THERAPY] Onset: 3 Episodic Other bone disease and musculoskeletal deformities (6 sources) History of amputation of right leg [...] Onset: 1 12-28-2020 Episodic Other circulatory disease (6 sources) History of cerebrovascular accident; Translations: [Personal [...] Onset: 3 08-03-2023 Chronic Other gastrointestinal disorders (6 sources) Constipation; Translations: [Constipation, unspecified] 08-04-2021 Episodic [...] 3 08-03-2023 Episodic Other nervous system disorders (9 sources) Disorder of autonomic nervous system; Translations: [Disorder of the autonomic nervous system, unspecified] 01-14-2021 Chronic Other nervous system disorders (6 sources) Phantom limb syndrome with pain; Translations: [Phantom limb syndrome with pain] 07-29-2021 Chronic Other nervous system disorders (20 sources) Phantom pain following amputation of lower limb; Translations: [Phantom limb syndrome with pain] Chronic Other nervous system disorders (3 sources) Phantom limb syndrome with pain Onset: 2 Resolved: 2 Chronic Other nervous system disorders (6 sources) Postoperative pain ; Translations: [Other acute postprocedural pain] 01-27-2021 Episodic Other nutritional; endocrine; and metabolic disorders (6 sources) Obese class I; Translations: [Obesity, unspecified] 12-19-2019 Chronic Other nutritional; endocrine; and metabolic disorders (6 sources) Body mass index 30+ - obesity; [...] system] Onset: 3 Episodic Other skin disorders (6 sources) Mass of neck; Translations: [Localized swelling, mass and lump, neck] 06-18-2021 Episodic Paralysis (6 sources) Right hemiplegia; Translations: [Hemiplegia, unspecified affecting right dominant side] 07-29-2021 Chronic Parkinson`s disease (9 sources) Parkinson's disease; Translations: [Parkinson's disease] 01-14-2021 Chronic Peripheral and visceral atherosclerosis (10 sources) Peripheral vascular disease; Translations: [Peripheral vascular disease, unspecified] 01-14-2021 Chronic Peripheral and visceral atherosclerosis (1 source) Atherosclerosis of artery of lower limb; Translations: [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 (HCC)] Residual codes; unclassified (9 sources) Obstructive sleep apnea syndrome; Translations: [Obstructive sleep apnea (adult) (pediatric)] 01-14-2021 Chronic Residual codes; unclassified (1 source) Sleep apnea, unspecified; Translations: [SLEEP APNEA UNSPECIFIED] Onset: 3 Chronic Residual codes; unclassified (6 sources) Tobacco user; Translations: [Tobacco use] 01-14-2021 Episodic Residual codes; unclassified (6 sources) Patient encounter status; Translations: [Encounter for [...] [Altered mental status] Onset: 3 08-03-2023 Episodic Skin and subcutaneous tissue infections (20 sources) Cellulitis; Translations: [Cellulitis, unspecified] Onset: 9 08-02-2021 Episodic Substance-related disorders (4 sources) Smokes tobacco daily; Translations: [Tobacco use disorder] Onset: 3 Chronic Comment on above: 1/2 ppd; Thyroid disorders (10 sources) Hypothyroidism; Translations: [Hypothyroidism, unspecified] Onset: 3 07-29-2021 Chronic Unclassified (1 source) CHRN KIDNEY DISEASE STG 3 UNSP; Translations: [CHRN KIDNEY DISEASE STG 3 UNSP] Onset: 3 Unclassified (4 sources) CONTACT W/AND (SUSP) EXPOS COVID-19; Translations: [CONTACT W/AND (SUSP) EXPOS COVID-19] Onset: 3 Past or Other Problems Problem Classification Problem Date Documented Da te Episodic/Chronic Acute and unspecified renal failure (9 sources) Injury of kidney; Translations: [Acute kidney failure, unspecified] Onset: 03-12-2023 08-14-2021 Episodic Fluid and electrolyte disorders (4 sources) Dehydration; Translations: [Dehydration] Onset: 04-16-2023 04-16-2023 Episodic Immunizations and screening for infectious disease (1 source) Contact with and (suspected) exposure to other viral communicable diseases Onset: 08-29-2021 Resolved: 08-29-2021 Episodic Lymphadenitis (1 source) Localized enlarged lymph nodes; Translations: [LOCALIZED ENLARGED LYMPH NODES] Onset: 10-18-2022 Episodic Other circulatory disease (2 sources) Personal [...] [ACUTE RESPIRATORY FAIL W/HYPOXIA] Onset: 10-18-2022 Episodic Unclassified (1 source) CONTACT W/AND (SUSP) EXPOS COVID-19; Translations: [CONTACT W/AND (SUSP) EXPOS COVID-19] Onset: 01-31-2023 Viral infection (1 source) COVID-19 Onset: 08-29-2021 Resolved: 08-29-2021 Results Test Name Value Interpretation Reference Range Facility Progress Noteson 11-06-2023 Sales Utility Representative Authentication Interface Message Text Longstanding PDR OU, [...] neck no ICA stenosis - GCA symptoms NAYAK, jaw mikaela, F/C negative today - rec go to ED if symptoms recur, discussed importance that he is not having another stroke Return 8 weeks Dilate OU OCT mac OU Normal [facility] Left eye Ophthalmologic hilary tmenton 09-11-2023 Time Out The date was 09/11/2023. The time was 4:54 PM. Confirmed correct patient, procedure, site, and patient consented. Anesthesia Subconjunctival anesthesia was used. Anesthetic medications included Lidocaine 2%. Procedure Preparation included 5% betadine to ocular surface. A 30 gauge needle was used. Injection Medications: 1.25 mg bevacizumab 1.25MG/0.05 mL Route: Intravitreal Lot: [id number], Expiration date: 09/11/2023 Post-op Post injection exam found visual acuity of at least counting fingers. The patient tolerated the procedure well. There were no complications. Post injection medications were not given. Notes Avastin [facility] Radiology Study observation (narrative) [facility] Progress Noteson 09-11-2023 Sales Utility Representative Authentication Interface Message Text Longstanding PDR OU, [...] neck no ICA stenosis - GCA symptoms NAYAK, jaw mikaela, F/C negative - rec go to ED if symptoms recur Return 8 weeks Dilate OU OCT mac OU Normal [facility] Study observation Right reti na by OCTon 09-11-2023 Right Eye Quality was good. Scan locations included subfoveal. Left Eye Quality was good. Scan locations included subfoveal. Notes OD: stable, thin, no fluid OS: improving view, thin, no fluid [facility] Radiology Study observation (narrative) [facility] Blood Cultureon 08-07-2023 Bacteria identified Cx Nom (Bld) ---- Blood Culture: NG5^NO GROWTH. NG5^Time of report was 120 hours. Normal [facility] Comment on above: Order Comment: Speci men Type: Unknown Relevant Clinical Information: Altered mental status, hypoglycemia, hypothermia Ordering Facility: [facility] Lab-CLIA#[id number] Address: [address] [place] [address] Performed By: #### M Deacon, CMP #### [facility] Lab-CLIA#[id number] CLIA [id number] [address] [place] [address] Phil Franklin DO,FCADELA Absolute lymphocyte countOrd ered By: Helen Jovel on 08-03-2023 Lymphocytes Auto (Unsp spec) [#/Vol] 1.26 10*3/uL 0.80-3.30 [place] [facility] Comment on above: Delta: 0.92 on 08/02 Basophils Auto (Bld) [#/Vol] Ordered By: Helen Jovel on 08-03-2023 Basophils (Bld) [#/Vol] 0.03 10*3/uL 0.00-0.10 [facility] Basophils/100 WBC Auto (Bld) Ordered By: Helen Jovel on 08-03-2023 Basophils/100 WBC (Bld) 0.3 % 0.0-1.3 [facility] Blood hemoglobin measurement (mass/volume)Ordered By: Helen Jovel on 08-03-2023 Hemoglobin (Bld) [Mass/Vol] 11.7 g/dL 13.5-17.7 [facility] Comment on above: Delta: 14.0 on 08/02 CBC w/ Auto Diffon Basophils Absolute Auto 0.03 10*3/uL Normal 0.00-0.10 [facility] Comment on above: Order Comment: Speci men Type: Unknown Relevant Clinical Information: Altered mental status, hypoglycemia, hypothermia Ordering Facility: [facility] Address: , , Performed By: #### G LUCOMETER #### [facility] Basophils/100 WBC (Bld) 0.3 % Normal 0.0-1.3 [facility] Comment on above: Order Comment: Speci men Type: Unknown Relevant Clinical Information: Altered mental status, hypoglycemia, hypothermia Ordering Facility: [facility] Address: , , Performed By: #### G LUCOMETER #### [facility] Eosinophils (Bld) [#/Vol] 0.31 10*3/uL Normal 0.00-0.50 [facility] Comment on above: Order Comment: Speci men Type: Unknown Relevant Clinical Information: Altered mental status, hypoglycemia, hypothermia Ordering Facility: [facility] Address: , , Performed By: #### G LUCOMETER #### [facility] Eosinophils/100 WBC (Bld) 3.0 % Normal 0.0-5.8 [facility] Comment on above: Order Comment: Speci men Type: Unknown Relevant Clinical Information: Altered mental status, hypoglycemia, hypothermia Ordering Facility: [facility] Address: , , Performed By: #### G LUCOMETER #### [facility] Erythrocyte distribution width (RBC) [Ratio] 13.2 % Normal 11.6-14.8 [facility] Comment on above: Order Comment: Speci men Type: Unknown Relevant Clinical Information: Altered mental status, hypoglycemia, hypothermia Ordering Facility: [facility] Address: , , Performed By: #### G LUCOMETER #### [facility] Hematocrit (Bld) [Volume fraction] 34.3 % Low 41.0-53.0 [facility] Comment on above: Order Comment: Speci men Type: Unknown Relevant Clinical Information: Altered mental status, hypoglycemia, hypothermia Ordering Facility: [facility] Address: , , Performed By: #### G LUCOMETER #### [facility] Hemoglobin (Bld) [Mass/Vol] 11.7 g/dL Low 13.5-17.7 [facility] Comment on above: Order Comment: Speci men Type: Unknown Relevant Clinical Information: Altered mental status, hypoglycemia, hypothermia Ordering Facility: [facility] Address: , , Performed By: #### G LUCOMETER #### [facility] Lymphocytes (Bld) [#/Vol] 1.26 10*3/uL Normal 0.80-3.30 [facility] Comment on above: Order Comment: Speci men Type: Unknown Relevant Clinical Information: Altered mental status, hypoglycemia, hypothermia Ordering Facility: [facility] Address: , , Performed By: #### G LUCOMETER #### [facility] Lymphocytes/100 WBC (Bld) 12.2 % Low 13.4-45.1 [facility] Comment on above: Order Comment: Speci men Type: Unknown Relevant Clinical Information: Altered mental status, hypoglycemia, hypothermia Ordering Facility: [facility] Address: , , Performed By: #### G LUCOMETER #### [facility] MCH (RBC) [Entitic mass] 31.5 pg Normal 27.2-33.0 [facility] Comment on above: Order Comment: Speci men Type: Unknown Relevant Clinical Information: Altered mental status, hypoglycemia, hypothermia Ordering Facility: [facility] Address: , , Performed By: #### G LUCOMETER #### [facility] MCHC (RBC) [Mass/Vol] 34.1 g/dL Normal 31.9-35.1 [facility] Comment on above: Order Comment: Speci men Type: Unknown Relevant Clinical Information: Altered mental status, hypoglycemia, hypothermia Ordering Facility: [facility] Address: , , Performed By: #### G LUCOMETER #### [facility] MCV (RBC) [Entitic vol] 92.5 fL Normal 81.7-97.1 [facility] Comment on above: Order Comment: Speci men Type: Unknown Relevant Clinical Information: Altered mental status, hypoglycemia, hypothermia Ordering Facility: [facility] Address: , , Performed By: #### G LUCOMETER #### [facility] Monocytes (Bld) [#/Vol] 0.77 10*3/uL Normal 0.30-0.90 [facility] Comment on above: Order Comment: Speci men Type: Unknown Relevant Clinical Information: Altered mental status, hypoglycemia, hypothermia Ordering Facility: [facility] Address: , , Performed By: #### G LUCOMETER #### [facility] Monocytes/100 WBC (Bld) 7.5 % Normal 4.0-12.7 [facility] Comment on above: Order Comment: Speci men Type: Unknown Relevant Clinical Information: Altered mental status, hypoglycemia, hypothermia Ordering Facility: [facility] Address: , , Performed By: #### G LUCOMETER #### [facility] Neutrophils Absolute Auto 7.89 10*3/uL High 1.70-7.00 [facility] Comment on above: Order Comment: Speci men Type: Unknown Relevant Clinical Information: Altered mental status, hypoglycemia, hypothermia Ordering Facility: [facility] Address: , , Performed By: #### G LUCOMETER #### [facility] Neutrophils/100 WBC (Bld) 76.6 % High 41.1-75.9 [facility] Comment on above: Order Comment: Speci men Type: Unknown Relevant Clinical Information: Altered mental status, hypoglycemia, hypothermia Ordering Facility: [facility] Address: , , Performed By: #### G LUCOMETER #### [facility] Platelet mean volume (Bld) [Entitic vol] 11.3 fL Normal 8.6-12.2 [facility] Comment on above: Order Comment: Speci men Type: Unknown Relevant Clinical Information: Altered mental status, hypoglycemia, hypothermia Ordering Facility: [facility] Address: , , Performed By: #### G LUCOMETER #### [facility] Platelets (Bld) [#/Vol] 220 10*3/uL Normal 133-425 [facility] Comment on above: Order Comment: Speci men Type: Unknown Relevant Clinical Information: Altered mental status, hypoglycemia, hypothermia Ordering Facility: [facility] Address: , , Performed By: #### G LUCOMETER #### [facility] RBC (Bld) [#/Vol] 3.71 10*6/uL Low 3.90-5.90 [facility] Comment on above: Order Comment: Speci men Type: Unknown Relevant Clinical Information: Altered mental status, hypoglycemia, hypothermia Ordering Facility: [facility] Address: , , Performed By: #### G LUCOMETER #### [facility] WBC (Bld) [#/Vol] 10.3 10*3/uL Normal 4.5-11.0 [facility] Comment on above: Order Comment: Speci men Type: Unknown Relevant Clinical Information: Altered mental status, hypoglycemia, hypothermia Ordering Facility: [facility] Address: , , Performed By: #### G LUCOMETER #### [facility] Comprehensive Metabolic Pane velasquez 08-03-2023 Albumin [Mass/Vol] 2.9 g/dL Low 3.4-5.0 [facility] Comment on above: Order Comment: Speci men Type: Unknown Relevant Clinical Information: Altered mental status, hypoglycemia, hypothermia Ordering Facility: [facility] Lab-CLIA#[id number] Address: [address] [place] [address] Performed By: #### M Deacon, CMP #### [facility] Lab-CLIA#[id number] CLIA [id number] [address] [place] [address] Phil Franklin DO, FCAP ALP [Catalytic activity/Vol] 100 U/L Normal 46-116 [facility] Comment on above: Order Comment: Speci men Type: Unknown Relevant Clinical Information: Altered mental status, hypoglycemia, hypothermia Ordering Facility: [facility] Lab-CLIA#[id number] Address: [address] [place] [address] Performed By: #### Aislinn Worthy, CMP #### [facility] Lab-CLIA#[id number] CLIA [id number] [address] [place] [id number] Vincent Randaisi, DO,FCAP ALT [Catalytic activity/Vol] 16 U/L Normal 10-49 [facility] Comment on above: Order Comment: Speci men Type: Unknown Relevant Clinical Information: Altered mental status, hypoglycemia, hypothermia Ordering Facility: [facility] Lab-CLIA#[id number] Address: [address] [place], [place] [id number] Performed By: #### Aislinn Worthy, CMP #### [facility] Lab-CLIA#[id number] CLIA [id number] [address] [place], [place] [id number] Vincent Randaisi, DO,FCAP Anion gap [Moles/Vol] 12 mmol/L Normal 7-17 [facility] Comment on above: Order Comment: Speci men Type: Unknown Relevant Clinical Information: Altered mental status, hypoglycemia, hypothermia Ordering Facility: [facility] Lab-CLIA#[id number] Address: [address] [place] [address] Performed By: #### Aislinn Worthy, CMP #### [facility] Lab-CLIA#[id number] CLIA [id number] [address] [place] [id number] Vincent Randaisi, DO,FCAP AST [Catalytic activity/Vol] 16 U/L Normal <34 [facility] Comment on above: Order Comment: Speci men Type: Unknown Relevant Clinical Information: Altered mental status, hypoglycemia, hypothermia Ordering Facility: [facility] Lab-CLIA#[id number] Address: [address] [place] [id number] Performed By: #### Aislinn Worthy, CMP #### [facility] Lab-CLIA#[id number] CLIA [id number] [address] [place] [address] Vincent Randaisi, DO,FCAP Bilirubin [Mass/Vol] 0.3 mg/dL Normal 0.3-1.2 [facility] Comment on above: Order Comment: Speci men Type: Unknown Relevant Clinical Information: Altered mental status, hypoglycemia, hypothermia Ordering Facility: [facility] Lab-CLIA#[id number] Address: [address] [place] [address] Performed By: #### Aislinn Worthy, CMP #### [facility] Lab-CLIA#[id number] CLIA [id number] [address] [place] [address] Phil Franklin, DO,FCAP Calcium [Mass/Vol] 8.2 mg/dL Low 8.3-10.6 Dori [facility] Comment on above: Order Comment: Speci men Type: Unknown Relevant Clinical Information: Altered mental status, hypoglycemia, hypothermia Ordering Facility: [facility] Lab-CLIA#[id number] Address: [address] [place] [address] Performed By: #### Aislinn Worthy, CMP #### [facility] Lab-CLIA#[id number] CLIA [id number] [address] [place] [address] Phil Dialsi, DO,FCAP Chloride [Moles/Vol] 111 mmol/L High 98-107 [facility] Comment on above: Order Comment: Speci men Type: Unknown Relevant Clinical Information: Altered mental status, hypoglycemia, hypothermia Ordering Facility: [facility] Lab-CLIA#[id number] Address: [address] [place] [address] Performed By: #### Aislinn Worthy, CMP #### [facility] Lab-CLIA#[id number] CLIA [id number] [address] [place] [address] Vincrony Luceroaisi, DO,FCAP CO2 [Moles/Vol] 22 mmol/L Normal 20-31 [facility] Comment on above: Order Comment: Speci men Type: Unknown Relevant Clinical Information: Altered mental status, hypoglycemia, hypothermia Ordering Facility: [facility] Lab-CLIA#[id number] Address: [address] [place] [address] Performed By: #### Aislinn Worthy, CMP #### [facility] Lab-CLIA#[id number] CLIA [id number] [address] [place] [address] Phil Franklin DO,FCAP Creatinine [Mass/Vol] 2.348 mg/dL High 0.70-1.30 [facility] Comment on above: Order Comment: Speci men Type: Unknown Relevant Clinical Information: Altered mental status, hypoglycemia, hypothermia Ordering Facility: [facility] Lab-CLIA#[id number] Address: [address] [place] [address] Performed By: #### M G, CMP #### [facility] Lab-CLIA#[id number] CLIA [id number] [address] [place] [address] Phil Franklin DO,FCAP Creatinine [facility] [address] [place] [address] Comment on above: Order Comment: Speci men Type: Unknown Relevant Clinical Information: Altered mental status, hypoglycemia, hypothermia Ordering Facility: [facility] Lab-CLIA#[id number] Address: [address] [place] [address] Performed By: #### M G, CMP #### [facility] Lab-CLIA#[id number] CLIA [id number] [address] [place] [address] Phil Franklin DO,FCAP GFR/1.73 sq M.predicted MDRD (S/P/Bld) [Vol rate/Area] 31 mL/min/{1.73_m2} [facility] Comment on above: Order Comment: Speci men Type: Unknown Relevant Clinical Information: Altered mental status, hypoglycemia, hypothermia Ordering Facility: [facility] Lab-CLIA#[id number] Address: [address] [place] [address] Result Comment: K/DO QI Guideline: Stage 1 [...] Performed By: #### Aislinn Worthy, CMP #### [facility] Lab-CLIA#[id number] CLIA [id number] [address] [place] [address] Phil Franklin DO,FCAP Glucose [Mass/Vol] 147 mg/dL High 74-106 Dori martínez [facility] Comment on above: Order Comment: Speci men Type: Unknown Relevant Clinical Information: Altered mental status, hypoglycemia, hypothermia Ordering Facility: [facility] Lab-CLIA#[id number] Address: [address] [place] [address] Performed By: #### Aislinn Worthy, CMP #### [facility] Lab-CLIA#[id number] CLIA [id number] [address] [place] [address] Phil Franklin DO,FCAP Potassium [Moles/Vol] 4.6 mmol/L Normal 3.5-5.1 Gauri [facility] Comment on above: Order Comment: Speci men Type: Unknown Relevant Clinical Information: Altered mental status, hypoglycemia, hypothermia Ordering Facility: [facility] Lab-CLIA#[id number] Address: [address] [place] [address] Performed By: #### Aislinn Worthy, CMP #### [facility] Lab-CLIA#[id number] CLIA [id number] [address] [place] [address] Phil Franklin DO,FCAP Protein [Mass/Vol] 5.4 g/dL Low 5.7-8.2 Dori martínez [facility] Comment on above: Order Comment: Speci men Type: Unknown Relevant Clinical Information: Altered mental status, hypoglycemia, hypothermia Ordering Facility: [facility] Lab-CLIA#[id number] Address: [address] [place] [address] Performed By: #### Aislinn Worthy, CMP #### [facility] Lab-CLIA#[id number] CLIA [id number] [address] [place] [address] Phil Franklin DO,FCAP Sodium [Moles/Vol] 140 mmol/L Normal 136-145 [facility] Comment on above: Order Comment: Speci men Type: Unknown Relevant Clinical Information: Altered mental status, hypoglycemia, hypothermia Ordering Facility: [facility] Lab-CLIA#[id number] Address: [address] [place] [address] Performed By: #### Aislinn Worthy, CMP #### [facility] Lab-CLIA#[id number] CLIA [id number] [address] [place] [address] Phil Franklin DO,FCAP Urea nitrogen [Mass/Vol] 50 mg/dL High 07-06 [facility] Comment on above: Order Comment: Speci men Type: Unknown Relevant Clinical Information: Altered mental status, hypoglycemia, hypothermia Ordering Facility: [facility] Lab-CLIA#[id number] Address: [address] [place] [address] Performed By: #### Aislinn Worthy, CMP #### [facility] Lab-CLIA#[id number] CLIA [id number] [address] [place] [address] Phil Franklin DO,FCAP Eosinophils Auto (Bld) [#/Vo l]Ordered By: Helen Jovel on 08-03-2023 Eosinophils (Bld) [#/Vol] 0.31 10*3/uL 0.00-0.50 [facility] Eosinophils/100 WBC Auto (Bl d)Ordered By: Helen Jovel on 08-03-2023 Eosinophils/100 WBC (Bld) 3.0 % 0.0-5.8 [facility] Comment on above: Delta: 2.0 on -0424 Erythrocyte distribution wid th Auto (RBC) [Ratio]Ordered By: Helen Jovel on 08-03-2023 Erythrocyte distribution width (RBC) [Ratio] 13.2 % 11.6-14.8 [facility] Glomerular filtration rate ( GFR) estimation/1.73 sq m using creatinine measurement wiOrdered By: Helen Jovel on 08-03-2023 GFR/1.73 sq M.predicted CKD-EPI (S/P/Bld) [Vol rate/Area] 31 mL/min >60 [facility] Comment on above: K/DOQI Guideline:Sta ge [...] [Mass/Vol] 339 mg/dL High 70-110 Dori martínez [facility] Comment on above: Order Comment: Speci men Type: Unknown Relevant Clinical Information: Altered mental status, hypoglycemia, hypothermia Ordering Facility: [facility] Lab-CLIA#[id number] Address: [address] [place] [address] Performed By: #### M Deacon, CMP #### [facility] Lab-CLIA#[id number] CLIA [id number] [address] [place] [address] Phil Franklin DO,FCAP Glucose [Mass/Vol] 165 mg/dL High 70-110 Dori martínez [facility] Comment on above: Order Comment: Speci men Type: Unknown Relevant Clinical Information: Altered mental status, hypoglycemia, hypothermia Ordering Facility: [facility] Address: , , Performed By: #### G LUCOMETER #### [facility] Glucose [Mass/Vol] 381 mg/dL High 70-110 Dori martínez [facility] Comment on above: Order Comment: Speci men Type: Unknown Relevant Clinical Information: Altered mental status, hypoglycemia, hypothermia Ordering Facility: [facility] Address: , , Performed By: #### G LUCOMETER #### [facility] Glucose Glucometer (BldC) [M ass/Vol]Ordered By: Harjeet Ruelas on 08-03-2023 Glucose [Mass/Vol] 339 mg/dL 70-110 Dori martínez [facility] Hematocrit Auto (Bld) [Volum e fraction]Ordered By: Helen Jovel on 08-03-2023 Hematocrit (Bld) [Volume fraction] 34.3 % 41.0-53.0 [facility] Laboratory - Chemistry and C hemistry - challengeOrdered By: Helen Jovel on 08-03-2023 Anion gap [Moles/Vol] 12 mmol/L 7-17 [facility] Lymphocytes/100 WBC Auto (Bl d)Ordered By: Helen Jovel on 08-03-2023 Lymphocytes/100 WBC (Bld) 12.2 % 13.4-45.1 [facility] Comment on above: Delta: 6.3 on MCH Auto (RBC) [Entitic mass ]Ordered By: Helen Jovel on 08-03-2023 MCH (RBC) [Entitic mass] 31.5 pg 27.2-33.0 [facility] MCHC Auto (RBC) [Mass/Vol]Or dered By: Helen Jovel on 08-03-2023 MCHC (RBC) [Mass/Vol] 34.1 g/dL 31.9-35.1 [facility] MCV (mean corpuscular volume ) determinationOrdered By: Helen Jovel on 08-03-2023 MCV (RBC) [Entitic vol] 92.5 fL 81.7-97.1 [facility] Comment on above: Delta: 89.8 on 08/02 Magnesiumon 08-03-2023 Magnesium [Mass/Vol] 1.9 mg/dL Normal 1.6-2.6 [facility] Comment on above: Order Comment: Speci men Type: Unknown Relevant Clinical Information: Altered mental status, hypoglycemia, hypothermia Ordering Facility: [facility] Lab-CLIA#[id number] Address: [address] [place] [address] Performed By: #### M G, CMP #### [facility] Lab-CLIA#[id number] CLIA [id number] [address] [place] [address] Phil Franklin DO, FCAP Monocytes Auto (Bld) [#/Vol] Ordered By: Helen Jovel on 08-03-2023 Monocytes (Bld) [#/Vol] 0.77 10*3/uL 0.30-0.90 [facility] Comment on above: Delta: 0.50 on 08/02-423 Monocytes/100 WBC Auto (Bld) Ordered By: Helen Jovel on 08-03-2023 Monocytes/100 WBC (Bld) 7.5 % 4.0-12.7 [facility] Comment on above: Delta: 3.4 on Neutrophils Auto (Bld) [#/Vo l]Ordered By: Helen Jovel on 08-03-2023 Neutrophils (Bld) [#/Vol] 7.89 10*3/uL 1.70-7.00 [facility] Comment on above: Delta: 12.71 on 07/154 Neutrophils/100 WBC Auto (Bl d)Ordered By: Helen Jovel on 08-03-2023 Neutrophils/100 WBC (Bld) 76.6 % 41.1-75.9 [facility] No Panel InformationOrdered By: Helen Jovel on 08-03-2023 Pharmacy Creatinine Clearance (Chem 36 [facility] Platelet mean volume Auto (B ld) [Entitic vol]Ordered By: Helen Jovel on 08-03-2023 Platelet mean volume (Bld) [Entitic vol] 11.3 fL 8.6-12.2 [facility] Platelets Auto (Bld) [#/Vol] Ordered By: Helen Jovel on 08-03-2023 Platelets (Bld) [#/Vol] 220 10*3/uL 133-425 [facility] RBC Auto (Bld) [#/Vol]Ordere d By: Helen Jovel on 08-03-2023 RBC (Bld) [#/Vol] 3.71 10*6/uL 3.90-5.90 [place] Serum or plasma alanine walton otransferase measurement with P-5'-P (enzymatic activity/Ordered By: Helen Jovel on 08-03-2023 ALT With P-5'-P [Catalytic activity/Vol] 16 U/L 10-49 [facility] Serum or plasma albumin regi urement by bromocresol purple (BCP) dye binding method (mOrdered By: Helen Jovel on 08-03-2023 Albumin BCP dye [Mass/Vol] 2.9 g/dL 3.4-5.0 [facility] Serum or plasma alkaline mari sphatase measurement (enzymatic activity/volume)Ordered By: Helen Jovel on 08-03-2023 ALP [Catalytic activity/Vol] 100 U/L 46-116 [facility] Serum or plasma aspartate am inotransferase measurement with P-5'-P (enzymatic activitOrdered By: Helen Jovel on 08-03-2023 AST With P-5'-P [Catalytic activity/Vol] 16 U/L 0-33 [facility] Serum or plasma calcium regi urement (mass/volume)Ordered By: Helen Jovel on 08-03-2023 Calcium [Mass/Vol] 8.2 mg/dL 8.3-10.6 [facility] Serum or plasma chloride taryn surement (moles/volume)Ordered By: Helen Jovel on 08-03-2023 Chloride [Moles/Vol] 111 mmol/L 98-107 [facility] Serum or plasma creatinine m easurement (mass/volume)Ordered By: Helen Jovel on 08-03-2023 Creatinine [Mass/Vol] 2.348 mg/dL 0.70-1.30 [facility] Serum or plasma glucose regi urement (mass/volume)Ordered By: Helen Jovel on 08-03-2023 Glucose [Mass/Vol] 147 mg/dL 74-106 Dori martínez [facility] Comment on above: Delta: 30 on 3-0424 Serum or plasma magnesium me asurement (mass/volume)Ordered By: Helen Jovel on 08-03-2023 Magnesium [Mass/Vol] 1.9 mg/dL 1.6-2.6 [facility] Serum or plasma potassium me asurement (moles/volume)Ordered By: Helen Jovel on 08-03-2023 Potassium [Moles/Vol] 4.6 mmol/L 3.5-5.1 [facility] Serum or plasma sodium measu rement (moles/volume)Ordered By: Helen Jovel on 08-03-2023 Sodium [Moles/Vol] 140 mmol/L 136-145 Dori martínez [facility] Serum or plasma total biliru bin measurement (mass/volume)Ordered By: Helen Jovel on 08-03-2023 Bilirubin [Mass/Vol] 0.3 mg/dL 0.3-1.2 [facility] Serum or plasma total carbon dioxide measurement (moles/volume)Ordered By: Helen Jovel on 08-03-2023 CO2 [Moles/Vol] 22 mmol/L [facility] Serum or plasma urea nitroge n measurement (mass/volume)Ordered By: Helen Jovel on 08-03-2023 Urea nitrogen [Mass/Vol] 50 mg/dL 07-06 [facility] Serum total protein measurem ent (mass/volume)Ordered By: Helen Jovel on 08-03-2023 Protein [Mass/Vol] 5.4 g/dL 5.7-8.2 Dori mart[facility]nez [facility] WBC Auto (Bld) [#/Vol]Ordere d By: Helen Jovel on 08-03-2023 WBC (Bld) [#/Vol] 10.3 10*3/uL 4.5-11.0 [place] Comment on above: Delta: 14.5 on 08/02-0424 Absolute lymphocyte countOrd ered By: Christopher Santiago on 08-02-2023 Lymphocytes Auto (Unsp spec) [#/Vol] 0.92 10*3/uL 0.80-3.30 [facility] Amphetamine Screen Ql (U)Ord ered By: laura Stanleyfadi on 08-02-2023 Amphetamines Ql (U) Not detected None Detect [facility] Comment on above: Cutoff: 500ng/mL Appearance urOrdered By: Lety Jovel on 08-02-2023 Appearance (U) Clear Clear [facility] Arterial Blood Gason 023 Glucose [Mass/Vol] 39 mg/dL Critically low 70-110 [facility] Comment on above: Order Comment: Speci men Type: Unknown Relevant Clinical Information: low gluc Ordering Facility: [facility] Lab-CLIA#[id number] Address: [address] [place] [address] Performed By: #### A BG #### [facility] Lab-CLIA#[id number] CLIA [id number] [address] [place] [address] Phil Franklin, DO,FCAP Hemoglobin (Bld) [Mass/Vol] 14.0 g/dL Normal 12.2-18.1 [facility] Comment on above: Order Comment: Speci men Type: Unknown Relevant Clinical Information: low gluc Ordering Facility: [facility] Lab-CLIA#[id number] Address: [address] [place] [address] Performed By: #### A BG #### [facility] Lab-CLIA#[id number] CLIA [id number] [address] [place] [address] Phil Franklin, DO,FCAP Normalized Ionized Calcium 1.19 mmol/L Normal 1.01-1.33 [facility] Comment on above: Order Comment: Speci men Type: Unknown Relevant Clinical Information: low gluc Ordering Facility: [facility] Lab-CLIA#[id number] Address: [address] [place] [address] Performed By: #### A BG #### [facility] Lab-CLIA#[id number] CLIA [id number] [address] [place] [address] Phil Franklin, DO,FCAP Arterial Blood Methemoglobin 0.3 % Normal 0.0-0.3 [facility] Comment on above: Order Comment: Speci men Type: Unknown Relevant Clinical Information: low gluc Ordering Facility: [facility] Lab-CLIA#[id number] Address: [address] [place] [address] Performed By: #### A BG #### [facility] Lab-CLIA#[id number] CLIA [id number] [address] [place] [address] Phil Franklin DO,FCAP Arterial Lactate 0.7 mmol/L Normal 0.5-1.6 [facility] Comment on above: Order Comment: Speci men Type: Unknown Relevant Clinical Information: low gluc Ordering Facility: [facility] Lab-CLIA#[id number] Address: [address] [place] [address] Performed By: #### A BG #### [facility] Lab-CLIA#[id number] CLIA [id number] [address] [place] [address] Phil Franklin DO,FCAP Base Excess ABG -3.6 mmol/L Normal [facility] Comment on above: Order Comment: Speci men Type: Unknown Relevant Clinical Information: low gluc Ordering Facility: [facility] Lab-CLIA#[id number] Address: [address] [place] [address] Performed By: #### A BG #### [facility] Lab-CLIA#[id number] CLIA [id number] [address] [place] [address] Phil Franklin DO,FCAP Carboxyhemoglobin 4.1 % High 0.1-2.5 [facility] Comment on above: Order Comment: Speci men Type: Unknown Relevant Clinical Information: low gluc Ordering Facility: [facility] Lab-CLIA#[id number] Address: [address] [place] [address] Performed By: #### A BG #### [facility] Lab-CLIA#[id number] CLIA [id number] [address] [place] [address] Phil Franklin, DO,FCAP Fractionated Inspired Oxygen 21 % Normal [facility] Comment on above: Order Comment: Speci men Type: Unknown Relevant Clinical Information: low gluc Ordering Facility: [facility] Lab-CLIA#[id number] Address: [address] [place] [address] Performed By: #### A BG #### [facility] Lab-CLIA#[id number] CLIA [id number] [address] [place] [address] Phil Franklin, DO,FCAP HCO3 (Bld) [Moles/Vol] 22 mmol/L Normal 22-26 [facility] Comment on above: Order Comment: Speci men Type: Unknown Relevant Clinical Information: low gluc Ordering Facility: [facility] Lab-CLIA#[id number] Address: [address] [place] [address] Performed By: #### A BG #### [facility] Lab-CLIA#[id number] CLIA [id number] [address] [place] [address] Phil Franklin, DO,FCAP Oxygen Content ABG 17.9 mL/dL Normal 17-100 [facility] Comment on above: Order Comment: Speci men Type: Unknown Relevant Clinical Information: low gluc Ordering Facility: [facility] Lab-CLIA#[id number] Address: [address] [place] [address] Performed By: #### A BG #### [facility] Lab-CLIA#[id number] CLIA [id number] [address] [place] [address] Phil Franklin, DO,FCAP Oxygen Saturation ABG 95.1 % Low 96-97 [facility] Comment on above: Order Comment: Speci men Type: Unknown Relevant Clinical Information: low gluc Ordering Facility: [facility] Lab-CLIA#[id number] Address: [address] [place] [address] Performed By: #### A BG #### [facility] Lab-CLIA#[id number] CLIA [id number] [address] [place] [address] Vincrony Randaisi, DO,FCAP PCO2 ABG 41 mm[Hg] Normal 32-53 [facility] Comment on above: Order Comment: Speci men Type: Unknown Relevant Clinical Information: low gluc Ordering Facility: [facility] Lab-CLIA#[id number] Address: [address] [place] [address] Performed By: #### A BG #### [facility] Lab-CLIA#[id number] CLIA [id number] [address] [place] [address] Phil Franklin, DO,FCAP PO2 ABG 82.2 mm[Hg] Normal 80-110 [facility] Comment on above: Order Comment: Speci men Type: Unknown Relevant Clinical Information: low gluc Ordering Facility: [facility] Lab-CLIA#[id number] Address: [address] [place] [address] Performed By: #### A BG #### [facility] Lab-CLIA#[id number] CLIA [id number] [address] [place] [address] Phil Franklin, DO,FCAP Potassium [Moles/Vol] 4.5 mmol/L Normal 3.5-5.1 [facility] Comment on above: Order Comment: Speci men Type: Unknown Relevant Clinical Information: low gluc Ordering Facility: [facility] Lab-CLIA#[id number] Address: [address] [place] [address] Performed By: #### A BG #### [facility] Lab-CLIA#[id number] CLIA [id number] [address] [place] [address] Phil Franklin, DO,FCAP Sodium [Moles/Vol] 139 mmol/L Normal 136-145 [facility] Comment on above: Order Comment: Speci men Type: Unknown Relevant Clinical Information: low gluc Ordering Facility: [facility] Lab-CLIA#[id number] Address: [address] [place] [address] Performed By: #### A BG #### [facility] Lab-CLIA#[id number] CLIA [id number] [address] [place] [address] Phil Franklin, DO,FCAP Arterial Blood pH 7.34 Low 7.35-7.45 [facility] Comment on above: Order Comment: Speci men Type: Unknown Relevant Clinical Information: [facility] gluc Ordering Facility: [facility] Lab-CLIA#[id number] Address: [address] [place] [address] Performed By: #### A BG #### [facility] Lab-CLIA#[id number] CLIA [id number] [address] [place] [address] Phil Franklin, DO,FCAP Arterial blood methemoglobin /total hemoglobinOrdered By: Christopher Santiago on 08-02-2023 Methemoglobin (BldA) [Mass fraction] 0.3 % 0.0-0.3 [facility] Arterial blood oxygen measur ementOrdered By: Christopher Santiago on 08-02-2023 Oxygen content (BldA) [Moles/Vol] 17.9 mL/dL 17-100 [facility] Arterial whole blood lactic acid measurement (moles/volume)Ordered By: Christopher Santiago on 08-02-2023 Lactate (BldA) [Moles/Vol] 0.7 mmol/L 0.5-1.6 [facility] Automated bacteria count in urine sediment (number/area)Ordered By: Helen Jovel on 08-02-2023 Bacteria Auto (Urine sed) [#/Area] None None [facility] Automated erythrocytes count in urine sediment (number/area)Ordered By: Helen Jovel on 08-02-2023 RBC Auto (Urine sed) [#/Area] 1 /HPF 0-5 [facility] Automated non-squamous epith elial cells count in urine sediment (number/area)Ordered By: Helen Jovel on 08-02-2023 Epithelial cells.non-squamous Auto (Urine sed) [#/Area] 0 /HPF 0-4 [facility] Automated urine leukocytes c ount (number/volume)Ordered By: Helen Jovel on 08-02-2023 WBC Auto (U) [#/Vol] 0 /HPF 0-4 [facility] Base excess Calc (BldA) [Mol es/Vol]Ordered By: Christopher Santiago on 08-02-2023 Base excess Calc (Bld) [Moles/Vol] -3.6000 mmol/L [facility] Basic Metabolic Panelon 07-15 Glucose [Mass/Vol] 30 mg/dL Critically low 74-106 [facility] Comment on above: Order Comment: Speci men Type: Unknown Relevant Clinical Information: Altered mental status, hypoglycemia, hypothermia Ordering Facility: [facility] Lab-CLIA#[id number] Address: [address] [place] [address] Performed By: #### Aislinn Worthy, CMP #### [facility] Lab-CLIA#[id number] CLIA [id number] [address] [place] [address] Phil Franklin DO,FCAP Anion gap [Moles/Vol] 11 mmol/L Normal 7-17 [facility] Comment on above: Order Comment: Speci men Type: Unknown Relevant Clinical Information: Altered mental status, hypoglycemia, hypothermia Ordering Facility: [facility] Lab-CLIA#[id number] Address: [address] [place] [address] Performed By: #### Aislinn Worthy, CMP #### [facility] Lab-CLIA#[id number] CLIA [id number] [address] [place] [address] Phil Franklin DO,FCAP Calcium [Mass/Vol] 9.4 mg/dL Normal 8.3-10.6 [facility] Comment on above: Order Comment: Speci men Type: Unknown Relevant Clinical Information: Altered mental status, hypoglycemia, hypothermia Ordering Facility: [facility] Lab-CLIA#[id number] Address: [address] [place] [address] Performed By: #### Aislinn Worthy, CMP #### [facility] Lab-CLIA#[id number] CLIA [id number] [address] [place] [address] Vincent Randaisi, DO,FCAP Chloride [Moles/Vol] 106 mmol/L Normal 98-107 [facility] Comment on above: Order Comment: Speci men Type: Unknown Relevant Clinical Information: Altered mental status, hypoglycemia, hypothermia Ordering Facility: [facility] Lab-CLIA#[id number] Address: [address] [place] [address] Performed By: #### Aislinn Worthy, CMP #### [facility] Lab-CLIA#[id number] CLIA [id number] [address] [place] [address] Vincent Jazmineaisi, DO,FCAP CO2 [Moles/Vol] 26 mmol/L Normal 20-31 [facility] Comment on above: Order Comment: Speci men Type: Unknown Relevant Clinical Information: Altered mental status, hypoglycemia, hypothermia Ordering Facility: [facility] Lab-CLIA#[id number] Address: [address] [place] [address] Performed By: #### Aislinn Worthy, CMP #### [facility] Lab-CLIA#[id number] CLIA [id number] [address] [place] [address] Vincent Randaisi, DO,FCAP Creatinine [Mass/Vol] 2.585 mg/dL High 0.70-1.30 [facility] Comment on above: Order Comment: Speci men Type: Unknown Relevant Clinical Information: Altered mental status, hypoglycemia, hypothermia Ordering Facility: [facility] Lab-CLIA#[id number] Address: [address] [place] [address] Performed By: #### Aislinn Worthy, CMP #### [facility] Lab-CLIA#[id number] CLIA [id number] [address] [place] [address] Vincent Randaisi, DO,FCAP Creatinine Clr Calc Pharmacy 32 Normal [facility] Comment on above: Order Comment: Speci men Type: Unknown Relevant Clinical Information: Altered mental status, hypoglycemia, hypothermia Ordering Facility: [facility] Lab-CLIA#[id number] Address: [address] [place] [address] Performed By: #### Aislinn Worthy, CMP #### [facility] Lab-CLIA#[id number] CLIA [id number] [address] [place] [address] Phil Franklin DO,FCAP GFR/1.73 sq M.predicted MDRD (S/P/Bld) [Vol rate/Area] 28 mL/min/{1.73_m2} [facility] Comment on above: Order Comment: Speci men Type: Unknown Relevant Clinical Information: Altered mental status, hypoglycemia, hypothermia Ordering Facility: [facility] Lab-CLIA#[id number] Address: [address] [place] [address] Result Comment: K/DO QI Guideline: Stage 1 [...] Performed By: #### Aislinn Worthy, CMP #### [facility] Lab-CLIA#[id number] CLIA [id number] [address] [place] [address] Phil Franklin DO,FCAP Potassium [Moles/Vol] 4.2 mmol/L Normal 3.5-5.1 [facility] Comment on above: Order Comment: Speci men Type: Unknown Relevant Clinical Information: Altered mental status, hypoglycemia, hypothermia Ordering Facility: [facility] Lab-CLIA#[id number] Address: [address] [place] [address] Performed By: #### Aislinn Worthy, CMP #### [facility] Lab-CLIA#[id number] CLIA [id number] [address] [place] [address] Phil Franklin DO,FCAP Sodium [Moles/Vol] 139 mmol/L Normal 136-145 [facility] Comment on above: Order Comment: Speci men Type: Unknown Relevant Clinical Information: Altered mental status, hypoglycemia, hypothermia Ordering Facility: [facility] Lab-CLIA#[id number] Address: [address] [place] [address] Performed By: #### Aislinn Worthy, CMP #### [facility] Lab-CLIA#[id number] CLIA [id number] [address] [place] [address] Phil Franklin DO,FCAP Urea nitrogen [Mass/Vol] 48 mg/dL High 9-23 [facility] Comment on above: Order Comment: Speci men Type: Unknown Relevant Clinical Information: Altered mental status, hypoglycemia, hypothermia Ordering Facility: [facility] Lab-CLIA#[id number] Address: [address] [place] [address] Performed By: #### Aislinn Worthy, CMP #### [facility] Lab-CLIA#[id number] CLIA [id number] [address] [place] [address] Phil Franklin DO,FCAP Basophils Auto (Bld) [#/Vol] Ordered By: Christopher Santiago on 08-02-2023 Basophils (Bld) [#/Vol] 0.04 10*3/uL 0.00-0.10 [facility] Basophils/100 WBC Auto (Bld) Ordered By: Christopher Santiago on 08-02-2023 Basophils/100 WBC (Bld) 0.3 % 0.0-1.3 [facility] Bilirubin Auto test strip Ql (U)Ordered By: Helen Jovel on 08-02-2023 Bilirubin Ql (U) Negative Negative [facility] Blood hemoglobin measurement (mass/volume)Ordered By: Christopher Santiago on 08-02-2023 Hemoglobin (Bld) [Mass/Vol] 14.0 g/dL 13.5-17.7 [facility] C Peptideon 08-02-2023 C Peptide 2.00 ng/mL Normal 0.48-5.05 [facility] Comment on above: Order Comment: Speci men Type: Unknown Relevant Clinical Information: Altered mental status, hypoglycemia, hypothermia Ordering Facility: [facility] Lab-CLIA#[id number] Address: [address] [place] [address] Performed By: #### M G, CMP #### [facility] Lab-CLIA#[id number] CLIA [id number] [address] [place] [address] Phil Franklin DO,FCAP CBC w/ Auto Diffon 3 Basophils Absolute Auto 0.04 10*3/uL Normal 0.00-0.10 [facility] Comment on above: Order Comment: Speci men Type: Unknown Relevant Clinical Information: low gluc Ordering Facility: [facility] Lab-CLIA#[id number] Address: [address] [place] [address] Performed By: #### C BC #### [facility] Lab-CLIA#[id number] CLIA [id number] [address] [place] [address] Phil Franklin DO,FCAP Basophils/100 WBC (Bld) 0.3 % Normal 0.0-1.3 [facility] Comment on above: Order Comment: Speci men Type: Unknown Relevant Clinical Information: low gluc Ordering Facility: [facility] Lab-CLIA#[id number] Address: [address] [place] [address] Performed By: #### C BC #### [facility] Lab-CLIA#[id number] CLIA [id number] [address] [place] [address] Vincent Randaisi, DO,FCAP Eosinophils (Bld) [#/Vol] 0.29 10*3/uL Normal 0.00-0.50 [facility] Comment on above: Order Comment: Speci men Type: Unknown Relevant Clinical Information: low gluc Ordering Facility: [facility] Lab-CLIA#[id number] Address: [address] [place] [address] Performed By: #### C BC #### [facility] Lab-CLIA#[id number] CLIA [id number] [address] [place] [address] Phil Franklin DO,FCAP Eosinophils/100 WBC (Bld) 2.0 % Normal 0.0-5.8 [facility] Comment on above: Order Comment: Speci men Type: Unknown Relevant Clinical Information: low gluc Ordering Facility: [facility] Lab-CLIA#[id number] Address: [address] [place] [address] Performed By: #### C BC #### [facility] Lab-CLIA#[id number] CLIA [id number] [address] [place] [address] Phil Franklin DO,FCAP Erythrocyte distribution width (RBC) [Ratio] 13.1 % Normal 11.6-14.8 [facility] Comment on above: Order Comment: Speci men Type: Unknown Relevant Clinical Information: low gluc Ordering Facility: [facility] Lab-CLIA#[id number] Address: [address] [place] [address] Performed By: #### C BC #### [facility] Lab-CLIA#[id number] CLIA [id number] [address] [place] [address] Phil Franklin DO,FCAP Hematocrit (Bld) [Volume fraction] 40.5 % Low 41.0-53.0 [facility] Comment on above: Order Comment: Speci men Type: Unknown Relevant Clinical Information: low gluc Ordering Facility: [facility] Lab-CLIA#[id number] Address: [address] [place] [address] Performed By: #### C BC #### [facility] Lab-CLIA#[id number] CLIA [id number] [address] [place] [address] Vincent Randaisi, DO,FCAP Hemoglobin (Bld) [Mass/Vol] 14.0 g/dL Normal 13.5-17.7 [facility] Comment on above: Order Comment: Speci men Type: Unknown Relevant Clinical Information: low gluc Ordering Facility: [facility] Lab-CLIA#[id number] Address: [address] [place] [address] Performed By: #### C BC #### [facility] Lab-CLIA#[id number] CLIA [id number] [address] [place] [address] Vincent Jayrosi, DO,FCAP Lymphocytes (Bld) [#/Vol] 0.92 10*3/uL Normal 0.80-3.30 [facility] Comment on above: Order Comment: Speci men Type: Unknown Relevant Clinical Information: low gluc Ordering Facility: [facility] Lab-CLIA#[id number] Address: [address] [place] [address] Performed By: #### C BC #### [facility] Lab-CLIA#[id number] CLIA [id number] [address] [place] [address] Phil Dialsi, DO,FCAP Lymphocytes/100 WBC (Bld) 6.3 % Low 13.4-45.1 [facility] Comment on above: Order Comment: Speci men Type: Unknown Relevant Clinical Information: low gluc Ordering Facility: [facility] Lab-CLIA#[id number] Address: [address] [place] [address] Performed By: #### C BC #### [facility] Lab-CLIA#[id number] CLIA [id number] [address] [place] [address] Vincent Jazmineaisi, DO,FCAP MCH (RBC) [Entitic mass] 31.0 pg Normal 27.2-33.0 [facility] Comment on above: Order Comment: Speci men Type: Unknown Relevant Clinical Information: low gluc Ordering Facility: [facility] Lab-CLIA#[id number] Address: [address] [place] [address] Performed By: #### C BC #### [facility] Lab-CLIA#[id number] CLIA [id number] [address] [place] [address] Phil Franklin DO,FCAP MCHC (RBC) [Mass/Vol] 34.6 g/dL Normal 31.9-35.1 [facility] Comment on above: Order Comment: Speci men Type: Unknown Relevant Clinical Information: low gluc Ordering Facility: [facility] Lab-CLIA#[id number] Address: [address] [place] [address] Performed By: #### C BC #### [facility] Lab-CLIA#[id number] CLIA [id number] [address] [place] [address] Phil Franklin DO,FCAP MCV (RBC) [Entitic vol] 89.8 fL Normal 81.7-97.1 [facility] Comment on above: Order Comment: Speci men Type: Unknown Relevant Clinical Information: low gluc Ordering Facility: [facility] Lab-CLIA#[id number] Address: [address] [place] [address] Performed By: #### C BC #### [facility] Lab-CLIA#[id number] CLIA [id number] [address] [place] [address] Phil Franklin DO,FCAP Monocytes (Bld) [#/Vol] 0.50 10*3/uL Normal 0.30-0.90 [facility] Comment on above: Order Comment: Speci men Type: Unknown Relevant Clinical Information: low gluc Ordering Facility: [facility] Lab-CLIA#[id number] Address: [address] [place] [address] Performed By: #### C BC #### [facility] Lab-CLIA#[id number] CLIA [id number] [address] [place] [address] Phil Franklin DO,FCAP Monocytes/100 WBC (Bld) 3.4 % Low 4.0-12.7 [facility] Comment on above: Order Comment: Speci men Type: Unknown Relevant Clinical Information: low gluc Ordering Facility: [facility] Lab-CLIA#[id number] Address: [address] [place] [address] Performed By: #### C BC #### [facility] Lab-CLIA#[id number] CLIA [id number] [address] [place] [address] Phil Franklin DO,FCAP Neutrophils Absolute Auto 12.71 10*3/uL High 1.70-7.00 [facility] Comment on above: Order Comment: Speci men Type: Unknown Relevant Clinical Information: low gluc Ordering Facility: [facility] Lab-CLIA#[id number] Address: [address] [place] [address] Performed By: #### C BC #### [facility] Lab-CLIA#[id number] CLIA [id number] [address] [place] [address] Phil Franklin DO,FCAP Neutrophils/100 WBC (Bld) 87.4 % High 41.1-75.9 [facility] Comment on above: Order Comment: Speci men Type: Unknown Relevant Clinical Information: low gluc Ordering Facility: [facility] Lab-CLIA#[id number] Address: [address] [place] [address] Performed By: #### C BC #### [facility] Lab-CLIA#[id number] CLIA [id number] [address] [place] [address] Phil Franklin DO,FCAP Platelet mean volume (Bld) [Entitic vol] 11.4 fL Normal 8.6-12.2 [facility] Comment on above: Order Comment: Speci men Type: Unknown Relevant Clinical Information: low gluc Ordering Facility: [facility] Lab-CLIA#[id number] Address: [address] [place] [address] Performed By: #### C BC #### [facility] Lab-CLIA#[id number] CLIA [id number] [address] [place] [address] Phil Franklin DO,FCAP Platelets (Bld) [#/Vol] 285 10*3/uL Normal 133-425 [facility] Comment on above: Order Comment: Speci men Type: Unknown Relevant Clinical Information: low gluc Ordering Facility: [facility] Lab-CLIA#[id number] Address: [address] [place] [address] Performed By: #### C BC #### [facility] Lab-CLIA#[id number] CLIA [id number] [address] [place] [address] Phil Franklin DO,FCAP RBC (Bld) [#/Vol] 4.51 10*6/uL Normal 3.90-5.90 [facility] Comment on above: Order Comment: Speci men Type: Unknown Relevant Clinical Information: low gluc [facility]ing Facility: [facility] [facility] Lab-CLIA#[id number] Address: [address] [place] [address] Performed By: #### C BC #### [facility] Lab-CLIA#[id number] CLIA [id number] [address] [place] [address] Phil Franklin DO,FCAP WBC (Bld) [#/Vol] 14.5 10*3/uL High 4.5-11.0 [facility] Comment on above: Order Comment: Speci men Type: Unknown Relevant Clinical Information: low gluc Ordering Facility: [facility] Lab-CLIA#[id number] Address: [address] [place] [address] Performed By: #### C BC #### [facility] Lab-CLIA#[id number] CLIA [id number] [address] [place] [address] Phil Franklin DO,FCAP CO2 (BldA) [Partial pressure ]Ordered By: Christopher Santiago on 08-02-2023 CO2 (Bld) [Partial pressure] 41 mm[Hg] 32-[address] [facility] [address] biopsyOrdered By: Charo Jovel on 08-02-2023 Benzodiazepines Ql (U) Not detected None Detect [facility] Comment on above: Cutoff: 200ng/mL Cocaine Ql (U) Not detected None Detect [facility] Comment on above: Cutoff: 150ng/mL CT biopsy Not detected None Detect [facility] Comment on above: Cutoff: 200ng/mL CTHEADWOon 08-02-2023 CTHEADWO [facility] [address] [place], [place] [address] CT Scan Report Signed Patient: Chandler Minor MR#: [id number] : 1970 Acct: [id number] Age/Sex: 53 / M ADM Date: 08/02/23 Loc: ER. Attending Dr: Ordering Physician: Christopher Santiago D.O. Date of Service: Procedure(s): CT head-brain wo [facility] Accession Number(s): [id number] cc: Christopher Santiago D.O. CT HEAD TECHNICAL: [...] Signed By: Chava Hernandez D.O. 08/02/23 0514 [id number] Normal [facility] CarboxyhemoglobinOrdered By: Christopher Santiago on 08-02-2023 Carboxyhemoglobin (Bld) [Mass/Vol] 4.1 % 0.1-2.5 [facility] Cholesterol in LDL Calc [Mas s/Vol]Ordered By: Marcelino Abel on 08-02-2023 Cholesterol in LDL [Mass/Vol] 28 mg/dL <100 [facility] Determination of inhaled oxy gen concentration (volume fraction)Ordered By: Christopher Santiago on 08-02-2023 Inhaled oxygen concentration 21 % [facility] Direct bilirubin measurement Ordered By: Helen Jovel on 08-02-2023 Bilirubin.direct [Mass/Vol] 0.1 mg/dL 0.0-0.3 [facility] Emergency Department Noteon 08-02-2023 [place] [address] Emergency Department Note Signed Patient: Chandler Minor MR#: [id number] : 1970 Acct: [id number] Age/Sex: 53 / M Date of Service: [...] Unobtainable: Yes unobtainable due to mental status [facility] Medical History (Updated 08/02/23 @ 05:23 by Christopher Santiago DO) Diabetes Social History (Reviewed 08/02/23 @ 05: by Christopher Santiago DO) Advance Directives: No Advance Directives Information Provided: No Advance Directives on File: No Would like to be referred to Sales Outfitter for info?: No Smoking Status: Never smoker [...] with prior history of right-sided BKA Neuro Lena Coma Scale: document GCS findings Daniel Coma Scale Eye Opening: No response Lena coma scale verbal response: No response Daniel [...] Vital S (more content not included)... Normal [facility] Eosinophils Auto (Bld) [#/Vo l]Ordered By: Christopher Santiago on 08-02-2023 Eosinophils (Bld) [#/Vol] 0.29 10*3/uL 0.00-0.50 [facility] Eosinophils/100 WBC Auto (Bl d)Ordered By: Christopher Santiago on 08-02-2023 Eosinophils/100 WBC (Bld) 2.0 % 0.0-5.8 [facility] Erythrocyte distribution wid th Auto (RBC) [Ratio]Ordered By: Christopher Santiago on 08-02-2023 Erythrocyte distribution width (RBC) [Ratio] 13.1 % 11.6-14.8 [facility] Free T4on 08-02-2023 Free T4 [Mass/Vol] 1.16 ng/dL Normal 0.89-1.76 [facility]ori [facility] Comment on above: Order Comment: Speci men Type: Unknown Relevant Clinical Information: Altered mental status, hypoglycemia, hypothermia Ordering Facility: [facility] Address: , , Performed By: #### G LUCOMETER #### [facility] Glomerular filtration rate ( GFR) estimation/1.73 sq m using creatinine measurement wiOrdered By: Christopher Santiago on 08-02-2023 GFR/1.73 sq M.predicted CKD-EPI (S/P/Bld) [Vol rate/Area] 28 mL/min >60 [facility] Comment on above: K/DOQI Guideline:Sta ge [...] [Mass/Vol] 240 mg/dL High 70-110 [facility] Comment on above: Order Comment: Speci men Type: Unknown Relevant Clinical Information: Altered mental status, hypoglycemia, hypothermia Ordering Facility: [facility] Lab-CLIA#[id number] Address: [address] [place] [address] Performed By: #### M G, CMP #### [facility] Lab-CLIA#[id number] CLIA [id number] [address] [place] [address] Phil Franklin, DO,FCAP Glucose [Mass/Vol] 110 mg/dL Normal 70-110 [facility] Comment on above: Order Comment: Speci men Type: Unknown Relevant Clinical Information: Altered mental status, hypoglycemia, hypothermia Ordering Facility: [facility] Lab-CLIA#[id number] Address: [address] [place] [address] Performed By: #### M G, CMP #### [facility] Lab-CLIA#[id number] CLIA [id number] [address] [place] [address] Phil Franklin, DO,FCAP Glucose [Mass/Vol] 117 mg/dL High 70-110 [facility] Comment on above: Order Comment: Speci men Type: Unknown Relevant Clinical Information: Altered mental status, hypoglycemia, hypothermia Ordering Facility: [facility] Lab-CLIA#[id number] Address: [address] [place] [address] Performed By: #### M G, CMP #### [facility] Lab-CLIA#[id number] CLIA [id number] [address] [place] [address] Phil Franklin, DO,FCAP Glucose [Mass/Vol] 124 mg/dL High 70-110 [facility] Comment on above: Order Comment: Speci men Type: Unknown Relevant Clinical Information: Altered mental status, hypoglycemia, hypothermia Ordering Facility: [facility] Address: , , Performed By: #### G LUCOMETER #### [facility] Glucose [Mass/Vol] 105 mg/dL Normal 70-110 [facility] Comment on above: Order Comment: Speci men Type: Unknown Relevant Clinical Information: Altered mental status, hypoglycemia, hypothermia Ordering Facility: [facility] Lab-CLIA#[id number] Address: [address] [place] [address] Performed By: #### M G, CMP #### [facility] Lab-CLIA#[id number] CLIA [id number] [address] [place] [address] Phil Dialsi, DO,FCAP Glucose [Mass/Vol] 102 mg/dL Normal 70-110 [facility] Comment on above: Order Comment: Speci men Type: Unknown Relevant Clinical Information: Altered mental status, hypoglycemia, hypothermia Ordering Facility: [facility] Lab-CLIA#[id number] Address: [address] [place] [address] Performed By: #### Aislinn Worthy, CMP #### [facility] Lab-CLIA#[id number] CLIA [id number] [address] [place] [address] Phil Dialsi, DO,FCAP Glucose [Mass/Vol] 97 mg/dL Normal 70-110 [facility] Comment on above: Order Comment: Speci men Type: Unknown Relevant Clinical Information: Altered mental status, hypoglycemia, hypothermia Ordering Facility: [facility] Lab-CLIA#[id number] Address: [address] [place] [address] Performed By: #### Aislinn Worthy, CMP #### [facility] Lab-CLIA#[id number] CLIA [id number] [address] [place] [address] Phil Franklin, DO,FCAP Glucose [Mass/Vol] 96 mg/dL Normal 70-110 [facility] Comment on above: Order Comment: Speci men Type: Unknown Relevant Clinical Information: Altered mental status, hypoglycemia, hypothermia Ordering Facility: [facility] Lab-CLIA#[id number] Address: [address] [place] [address] Performed By: #### M G, CMP #### [facility] Lab-CLIA#[id number] CLIA [id number] [address] [place] [address] Phil Dialsi, DO,FCAP Glucose [Mass/Vol] 111 mg/dL High 70-110 [facility] Comment on above: Order Comment: Speci men Type: Unknown Relevant Clinical Information: Altered mental status, hypoglycemia, hypothermia Ordering Facility: [facility] Lab-CLIA#[id number] Address: [address] [place], [place] [address] Performed By: #### M G, CMP #### [facility] Lab-CLIA#[id number] CLIA [id number] [address] [place] [address] Florarony DO Noemi,FCAP Glucose [Mass/Vol] 156 mg/dL High 70-110 [facility] Comment on above: Order Comment: Speci men Type: Unknown Relevant Clinical Information: Altered mental status, hypoglycemia, hypothermia Ordering Facility: [facility] Address: , , Performed By: #### G LUCOMETER #### [facility] Glucose [Mass/Vol] 55 mg/dL Low 70-110 [facility] Comment on above: Order Comment: Speci men Type: Unknown Relevant Clinical Information: low gluc Ordering Facility: [facility] Address: , , Performed By: #### G LUCOMETER #### [facility] Glucose (Bld) [Mass/Vol]Orde red By: Christopher Santiago on 08-02-2023 Glucose [Mass/Vol] 39 mg/dL 70-110 [facility] Glucose Glucometer (BldC) [M ass/Vol]Ordered By: Christopher Santiago on 08-02-2023 Glucose [Mass/Vol] 102 mg/dL 70-110 [facility] HCO3 (BldA) [Moles/Vol]Order ed By: Christopher Santiago on 08-02-2023 HCO3 (Bld) [Moles/Vol] 22 mmol/L 22-26 So [facility] Hematocrit Auto (Bld) [Volum e fraction]Ordered By: Christopher Santiago on 08-02-2023 Hematocrit (Bld) [Volume fraction] 40.5 % 41.0-53.0 [facility] Hemoglobin A1Con 08-02-2023 HbA1c (Bld) [Mass fraction] 12.0 % High <5.7 [facility] Comment on above: Order Comment: Speci men Type: Unknown Relevant Clinical Information: Altered mental status, hypoglycemia, hypothermia Ordering Facility: [facility] Address: , , Result Comment: Expe cted Values Suggested Diagnosis Diabetic >=6.5 (%) Prediabetes 5.7-6.4 (%) Normal <5.7 (%) Performed By: #### G LUCOMETER #### [facility] Hemoglobin A1c percentageOrd ered By: Helen Jovel on 08-02-2023 HbA1c (Bld) [Mass fraction] 12.0 % 0-5.6 [facility] Comment on above: Expected ValuesSugge sted Diagnosis Diabetic >=6.5 (%)Prediabetes 5.7-6.4 (%)Normal <5.7 (%) Hemoglobin Oximetry (BldA) [ Mass/Vol]Ordered By: Christopher Santiago on 08-02-2023 Hemoglobin (Bld) [Mass/Vol] 14.0 g/dL 12.2-18.1 [facility] Hepatic Function Panelon Albumin [Mass/Vol] 3.1 g/dL Low 3.4-5.0 [facility] Comment on above: Order Comment: Speci men Type: Unknown Relevant Clinical Information: Altered mental status, hypoglycemia, hypothermia Ordering Facility: [facility] Address: , , Performed By: #### G LUCOMETER #### [facility] ALP [Catalytic activity/Vol] 100 U/L Normal 46-116 [facility] Comment on above: Order Comment: Speci men Type: Unknown Relevant Clinical Information: Altered mental status, hypoglycemia, hypothermia Ordering Facility: [facility] Address: , , Performed By: #### G LUCOMETER #### [facility] ALT [Catalytic activity/Vol] 14 U/L Normal 10-49 [facility] Comment on above: Order Comment: Speci men Type: Unknown Relevant Clinical Information: Altered mental status, hypoglycemia, hypothermia Ordering Facility: [facility] Address: , , Performed By: #### G LUCOMETER #### [facility] AST [Catalytic activity/Vol] 18 U/L Normal <34 [facility] Comment on above: Order Comment: Speci men Type: Unknown Relevant Clinical Information: Altered mental status, hypoglycemia, hypothermia Ordering Facility: [facility] Address: , , Performed By: #### G LUCOMETER #### [facility] Bilirubin [Mass/Vol] 0.4 mg/dL Normal 0.3-1.2 [facility] Comment on above: Order Comment: Speci men Type: Unknown Relevant Clinical Information: Altered mental status, hypoglycemia, hypothermia Ordering Facility: [facility] Address: , , Performed By: #### G LUCOMETER #### [facility] Bilirubin.indirect [Mass/Vol] 0.1 mg/dL Normal <0.4 [facility] Comment on above: Order Comment: Speci men Type: Unknown Relevant Clinical Information: Altered mental status, hypoglycemia, hypothermia Ordering Facility: [facility] Address: , , Performed By: #### G LUCOMETER #### [facility] Protein [Mass/Vol] 6.0 g/dL Normal 5.7-8.2 [facility] Comment on above: Order Comment: Speci men Type: Unknown Relevant Clinical Information: Altered mental status, hypoglycemia, hypothermia Ordering Facility: [facility] Address: , , Performed By: #### G LUCOMETER #### [facility] Hyaline casts detection in u rine sediment by light microscopyOrdered By: Helen Jovel on 08-02-2023 Hyaline casts LM Ql (Urine sed) 6 /LPF 0-5 [facility] Internal Med History Physica velasquez 08-02-2023 Internal Med History Physical [facility] [place] [address] [place] [address] Internal Med History Physical Signed Patient: Chandler Minor MR#: [id number] : 1970 Acct: [id number] Age/Sex: 53 / M Date of Service: 08/02/23 [facility]: Helen Jovel M.D. [...] micturition. Patient reports that he came to [place] to see his mom. Patient reports chronic [...] No Would like to be referred to Sales Outfitter for info?: No Smoking Status: Current every [...] ORAL PM (more content not included)... Normal [facility] Ketones Auto test strip (U) [Mass/Vol]Ordered By: Helen Jovel on 08-02-2023 Ketones (U) [Mass/Vol] Negative Negative So [facility] Laboratory - Chemistry and C hemistry - challengeOrdered By: Christopher Santiago on 08-02-2023 Anion gap [Moles/Vol] 11 mmol/L 04-29 [facility] Lipid Panelon 08-02-2023 Cholesterol [Mass/Vol] 89 mg/dL Normal <200 [facility] Comment on above: Order Comment: Speci men Type: Unknown Relevant Clinical Information: Altered mental status, hypoglycemia, hypothermia Ordering Facility: [facility] Lab-CLIA#[id number] Address: [address] [place] [address] Performed By: #### L IPID #### [facility] Lab-CLIA#[id number] CLIA [id number] [address] [place] [address] Vincent Jazmineaisi, DO,FCAP Cholesterol in HDL [Mass/Vol] 32 mg/dL Low 40-60 [facility] Comment on above: Order Comment: Speci men Type: Unknown Relevant Clinical Information: Altered mental status, hypoglycemia, hypothermia Ordering Facility: [facility] Lab-CLIA#[id number] Address: [address] [place] [address] Performed By: #### L IPID #### [facility] Lab-CLIA#[id number] CLIA [id number] [address] [place] [address] Vincrony Dialsi, DO,FCAP Cholesterol in LDL [Mass/Vol] 28 mg/dL Normal <100 [facility] Comment on above: Order Comment: Speci men Type: Unknown Relevant Clinical Information: Altered mental status, hypoglycemia, hypothermia Ordering Facility: [facility] Lab-CLIA#[id number] Address: [address] [place] [address] Performed By: #### L IPID #### [facility] Lab-CLIA#[id number] CLIA [id number] [address] [place] [address] Vincent Jazmineaisi, DO,FCAP Triglyceride [Mass/Vol] 143 mg/dL Normal <149 [facility] Comment on above: Order Comment: Speci men Type: Unknown Relevant Clinical Information: Altered mental status, hypoglycemia, hypothermia Ordering Facility: [facility] Lab-CLIA#[id number] Address: [address] [place] [address] Performed By: #### L IPID #### [facility] Lab-CLIA#[id number] CLIA [id number] [address] [place] [address] Vincent Randaisi, DO,FCAP Lymphocytes/100 WBC Auto (Bl d)Ordered By: Christopher Santiago on 08-02-2023 Lymphocytes/100 WBC (Bld) 6.3 % 13.4-45.1 [facility] MCH Auto (RBC) [Entitic mass ]Ordered By: Christopher Santiago on 08-02-2023 MCH (RBC) [Entitic mass] 31.0 pg 27.2-33.0 [facility] MCHC Auto (RBC) [Mass/Vol]Or dered By: Christopher Santiago on 08-02-2023 MCHC (RBC) [Mass/Vol] 34.6 g/dL 31.9-35.1 [facility] MCV (mean corpuscular volume ) determinationOrdered By: Christopher Santiago on 08-02-2023 MCV (RBC) [Entitic vol] 89.8 fL 81.7-97.1 [facility] Monocytes Auto (Bld) [#/Vol] Ordered By: Christopher Santiago on 08-02-2023 Monocytes (Bld) [#/Vol] 0.50 10*3/uL 0.30-0.90 [facility] Monocytes/100 WBC Auto (Bld) Ordered By: Christopher Santiago on 08-02-2023 Monocytes/100 WBC (Bld) 3.4 % 4.0-12.7 [facility] Consult [place] [address] Neurology Consult Note Signed Patient: Chandler Minor MR#: [id number] : 1970 Acct: [id number] Age/Sex: 53 / M Date of Service: 08/02/23 Loc: [facility] 4828-[address]: Helen Jovel M.D. cc: [...] No Would like to be referred to Sales Outfitter for info?: No Smoking Status: Current every [...] (Jardiance) ergoc (more content not included)... Normal [facility] Neutrophils Auto (Bld) [#/Vo l]Ordered By: Christopher Santiago on 08-02-2023 Neutrophils (Bld) [#/Vol] 12.71 10*3/uL 1.70-7.00 [facility] Neutrophils/100 WBC Auto (Bl d)Ordered By: Christopher Santiago on 08-02-2023 Neutrophils/100 WBC (Bld) 87.4 % 41.1-75.9 [facility] No Panel InformationOrdered By: Helen Jovel on 08-02-2023 Urine Drug Screen Comment. See comment [facility] Comment on above: This method provides [...] on 08-02-2023 Pharmacy Creatinine Clearance (Chem 32 [facility] Oxygen (BldA) [Partial press ure]Ordered By: Christopher Santiago on 08-02-2023 Oxygen (Bld) [Partial pressure] 82.2 mm[Hg] 80-110 [facility] Platelet mean volume Auto (B ld) [Entitic vol]Ordered By: Christopher Santiago on 08-02-2023 Platelet mean volume (Bld) [Entitic vol] 11.4 fL 8.6-12.2 [facility] Platelets Auto (Bld) [#/Vol] Ordered By: Christopher Santiago on 08-02-2023 Platelets (Bld) [#/Vol] 285 10*3/uL 133-425 [facility] Potassium (Bld) [Moles/Vol]O rdered By: Christopher Santiago on 08-02-2023 Potassium [Moles/Vol] 4.5 mmol/L 3.5-5.1 [facility] Procalcitoninon 08-02-2023 Procalcitonin 0.11 ng/mL Normal <0.10 [facility] Comment on above: Order Comment: Speci [...] The ProHOSP Randomized Controlled Trial. LAMAR 302: [address] - [address]66. Performed By: #### G LUCOMETER #### [facility] Protein Auto test strip (U) [Mass/Vol]Ordered By: Helen Jovel on 08-02-2023 Protein (U) [Mass/Vol] 300 mg/dL Negative So [facility] RBC Auto (Bld) [#/Vol]Ordere d By: Christopher Santiago on 08-02-2023 RBC (Bld) [#/Vol] 4.51 10*6/uL 3.90-5.90 [place] Screening urine 6-acetylmorp dirk measurementOrdered By: Helen Jovel on 08-02-2023 6-Monoacetylmorphine (6-ELTON) Screen Ql (U) Not detected None Detect [facility] Comment on above: Cutoff: 10ng/mL Screening urine cannabinoids detection using 50 ng/mL cutoffOrdered By: Helen Jovel on 08-02-2023 Tetrahydrocannabinol Screen method >50 ng/mL Ql (U) Not detected None Detect [facility] Comment on above: Cutoff: 50ng/mL Screening urine opiates test Ordered By: Helen Jovel on 08-02-2023 Opiates Screen Ql (U) Not detected None Detect [facility] Comment on above: Cutoff: 300ng/mL Serum or plasma C peptide me asurement (mass/volume)Ordered By: Helen Jovel on 08-02-2023 C peptide [Mass/Vol] 2.00 ng/mL 0.48-5.05 [facility] Serum or plasma alanine walton otransferase measurement with P-5'-P (enzymatic activity/Ordered By: Helen Jovel on 08-02-2023 ALT With P-5'-P [Catalytic activity/Vol] 14 U/L 1049 [facility] Serum or plasma albumin regi urement by bromocresol purple (BCP) dye binding method (mOrdered By: Helen Jovel on 08-02-2023 Albumin BCP dye [Mass/Vol] 3.1 g/dL 3.4-5.0 [facility] Serum or plasma alkaline mari sphatase measurement (enzymatic activity/volume)Ordered By: Helen Jovel on 08-02-2023 ALP [Catalytic activity/Vol] 100 U/L 46-116 [facility] Serum or plasma aspartate am inotransferase measurement with P-5'-P (enzymatic activitOrdered By: Helen Jovel on 08-02-2023 AST With P-5'-P [Catalytic activity/Vol] 18 U/L 0-33 [facility] Serum or plasma calcium regi urement (mass/volume)Ordered By: Christopher Santiago on 08-02-2023 Calcium [Mass/Vol] 9.4 mg/dL 8.3-10.6 [facility] Serum or plasma chloride taryn surement (moles/volume)Ordered By: Christopher Santiago on 08-02-2023 Chloride [Moles/Vol] 106 mmol/L 98-107 [facility] Serum or plasma cholesterol measurement (mass/volume)Ordered By: Marcelino Abel on 08-02-2023 Cholesterol [Mass/Vol] 89 mg/dL 0-199 [facility] Serum or plasma creatinine m easurement (mass/volume)Ordered By: Christopher Santiago on 08-02-2023 Creatinine [Mass/Vol] 2.585 mg/dL 0.70-1.30 So [facility] Serum or plasma free thyroxi ne (FT4) measurement (mass/volume)Ordered By: Helen Jovel on 08-02-2023 Free T4 [Mass/Vol] 1.16 ng/dL 0.89-1.76 [facility] Serum or plasma glucose regi urement (mass/volume)Ordered By: Christopher Santiago on 08-02-2023 Glucose [Mass/Vol] 30 mg/dL 74-106 [facility] Serum or plasma high density lipoprotein (HDL) cholesterol measurementOrdered By: Marcelino Abel on 08-02-2023 Cholesterol in HDL [Mass/Vol] 32 mg/dL 40-60 [facility] Serum or plasma potassium me asurement (moles/volume)Ordered By: Christopher Santiago on 08-02-2023 Potassium [Moles/Vol] 4.2 mmol/L 3.5-5.1 [facility] Serum or plasma sodium measu rement (moles/volume)Ordered By: Christopher Santiago on 08-02-2023 Sodium [Moles/Vol] 139 mmol/L 136-145 [facility] Serum or plasma total biliru bin measurement (mass/volume)Ordered By: Helen Jovel on 08-02-2023 Bilirubin [Mass/Vol] 0.4 mg/dL 0.3-1.2 [facility] Serum or plasma total carbon dioxide measurement (moles/volume)Ordered By: Christopher Santiago on 08-02-2023 CO2 [Moles/Vol] 26 mmol/L [facility] Serum or plasma triglyceride measurement (mass/volume)Ordered By: Marcelino Abel on 08-02-2023 Triglyceride [Mass/Vol] 143 mg/dL <149 [facility] Serum or plasma urea nitroge n measurement (mass/volume)Ordered By: Christopher Santiago on 08-02-2023 Urea nitrogen [Mass/Vol] 48 mg/dL - [facility] Serum procalcitonin measurem entOrdered By: Helen Jovel on 08-02-2023 Procalcitonin [Mass/Vol] 0.11 ng/mL <0.10 [facility] Comment on above: *Use of Procalcitoni [...] an underlying bacterial infection difficult to establish. Reference:Edinson Narvaez., et al. 2009. Effect of procalcitonin-basedguidelines vs standard guidelines on antibiotic use in lowerrespiratory tract infections. The ProHOSP Randomized Controlled Trial. LAMAR 302: 96718 - 1066. Serum total protein measurem ent (mass/volume)Ordered By: Helen Jovel on 08-02-2023 Protein [Mass/Vol] 6.0 g/dL 5.7-8.2 [facility] Sodium (Bld) [Moles/Vol]Orde red By: Christopher Santiago on 08-02-2023 Sodium [Moles/Vol] 139 mmol/L 136-145 [facility] TSHon 08-02-2023 TSH Qn 1.144 m[IU]/L Normal 0.550-4.78 0 [facility] Comment on above: Order Comment: Speci men Type: Unknown Relevant Clinical Information: Altered mental status, hypoglycemia, hypothermia Ordering Facility: [facility] Address: , , Performed By: #### G LUCOMETER #### [facility] TSH DL <= 0.005 mIU/L QnOrde red By: Helen Jovel on 08-02-2023 TSH Qn 1.144 m[IU]/L 0.550-4.78 0 [facility] UA Reflex to Micro and Cultu reon 08-02-2023 Appearance (U) Clear Normal Clear [facility] Comment on above: Order Comment: Speci men Type: Unknown Relevant Clinical Information: Altered mental status, hypoglycemia, hypothermia Ordering Facility[facility] Lab-CLIA#[id number] Address: [address] [place] [address] Performed By: #### M G, CMP #### [facility] Lab-CLIA#[id number] CLIA [id number] [address] [place] [address] Phil Franklin DO,FCAP Bilirubin Urine Negative Normal Negative [facility] Comment on above: Order Comment: Speci men Type: Unknown Relevant Clinical Information: Altered mental status, hypoglycemia, hypothermia Ordering Facility: [facility] Lab-CLIA#[id number] Address: [address] [place] [address] Performed By: #### Aislinn Worthy, CMP #### [facility] Lab-CLIA#[id number] CLIA [id number] [address] [place] [address] Phil Franklin DO,FCAP Blood Urine Trace Abnormal Negative [facility] Comment on above: Order Comment: Speci men Type: Unknown Relevant Clinical Information: Altered mental status, hypoglycemia, hypothermia Ordering Facility: [facility] Lab-CLIA#[id number] Address: [address] [place] [address] Performed By: #### Aislinn Worthy, CMP #### [facility] Lab-CLIA#[id number] CLIA [id number] [address] [place] [address] Phil Franklin DO,FCAP Color (U) Yellow Normal Yellow [facility] Comment on above: Order Comment: Speci men Type: Unknown Relevant Clinical Information: Altered mental status, hypoglycemia, hypothermia Ordering Facility: [facility] Lab-CLIA#[id number] Address: [address] [place] [address] Performed By: #### Aislinn Worthy, CMP #### [facility] Lab-CLIA#[id number] CLIA [id number] [address] [place] [address] Phil Franklin DO,FCAP Glucose Urine UA 500 mg/dL Abnormal Negative [facility] Comment on above: Order Comment: Speci men Type: Unknown Relevant Clinical Information: Altered mental status, hypoglycemia, hypothermia Ordering Facility: [facility] Lab-CLIA#[id number] Address: [address] [place] [address] Performed By: #### M G, CMP #### [facility] Lab-CLIA#[id number] CLIA [id number] [address] [place], [place] [id number] Phil Franklin DO,FCAP Ketones Ql (U) Negative Normal Negative [facility] Comment on above: Order Comment: Speci men Type: Unknown Relevant Clinical Information: Altered mental status, hypoglycemia, hypothermia Ordering Facility: [facility] Lab-CLIA#[id number] Address: [address] [place] [address] Performed By: #### M G, CMP #### [facility] Lab-CLIA#[id number] CLIA [id number] [address] [place] [address] Phil Franklin DO,FCAP Leukocyte Esterase Ur Negative Normal Negative [facility] Comment on above: Order Comment: Speci men Type: Unknown Relevant Clinical Information: Altered mental status, hypoglycemia, hypothermia Ordering Facility: [facility] Lab-CLIA#[id number] Address: [address] [place] [address] Performed By: #### M G, CMP #### [facility] Lab-CLIA#[id number] CLIA [id number] [address] [place] [address] Phil Franklin DO,FCAP Nitrite Urine Negative Normal Negative [facility] Comment on above: Order Comment: Speci men Type: Unknown Relevant Clinical Information: Altered mental status, hypoglycemia, hypothermia Ordering Facility: [facility] Lab-CLIA#[id number] Address: [address] [place] [address] Performed By: #### M G, CMP #### [facility] Lab-CLIA#[id number] CLIA [id number] [address] [place], [place] [id number] Phil Franklin DO,FCAP pH (U) 5.0 [pH] Normal <=7.5 [facility] Comment on above: Order Comment: Speci men Type: Unknown Relevant Clinical Information: Altered mental status, hypoglycemia, hypothermia Ordering Facility: [facility] Lab-CLIA#[id number] Address: [address] [place] [address] Performed By: #### Aislinn Worthy, CMP #### [facility] Lab-CLIA#[id number] CLIA [id number] [address] [place] [address] Vincrony Franklin, DO,FCAP Protein Urine 300 Abnormal Negative [facility] Comment on above: Order Comment: Speci men Type: Unknown Relevant Clinical Information: Altered mental status, hypoglycemia, hypothermia Ordering Facility: [facility] Lab-CLIA#[id number] Address: [address] [place] [address] Performed By: #### Aislinn Worthy, CMP #### [facility] Lab-CLIA#[id number] CLIA [id number] [address] [place] [address] Phil Franklin, DO,FCAP Specific [place] Ur 1.015 Normal 1.005-1. [address] [place] [address] Comment on above: Order Comment: Speci men Type: Unknown Relevant Clinical Information: Altered mental status, hypoglycemia, hypothermia Ordering Facility: [facility] Lab-CLIA#[id number] Address: [address] [place] [address] Performed By: #### Aislinn Worthy, CMP #### [facility] Lab-CLIA#[id number] CLIA [id number] [address] [place] [address] Phil Franklin DO,FCAP Urine Type Clean Catch Normal [facility] Comment on above: Order Comment: Speci men Type: Unknown Relevant Clinical Information: Altered mental status, hypoglycemia, hypothermia Ordering Facility: [facility] Lab-CLIA#[id number] Address: [address] [place] [address] Performed By: #### Aislinn Worthy, CMP #### [facility] Lab-CLIA#[id number] CLIA [id number] [address] [place] [address] Phil Franklin, DO,FCAP Urobilinogen Urine 0.2 E.U./dL Normal 0-2.0 [facility] Comment on above: Order Comment: Speci men Type: Unknown Relevant Clinical Information: Altered mental status, hypoglycemia, hypothermia Ordering Facility: [facility] Lab-CLIA#[id number] Address: [address] [place] [address] Performed By: #### M Deacon, CMP #### [facility] Lab-CLIA#[id number] CLIA [id number] [address] [place] [address] Phil Franklin DO, FCAP USRNLMTon 08-02-2023 [place] [address] Ultrasound Report Signed Patient: Chandler Minor MR#: [id number] 02 : 1970 Acct: [id number] Age/Sex: 53 / M ADM Date: 08/02/23 Loc: [facility] 4828-[address]: Helen Jovel M.D. Ordering Physician: Helen Jovel M.D. Date of Service: Procedure(s): US renal limited retroper Accession Number(s): [id number] cc: Helen Jovel M.D. RENAL ULTRASOUND TECHNIQUE: [...] By: Jorge A Yang D.O. 08/02/23 1244 [id number] Normal [facility] Urine Drug Screen of Abuseon 08-02-2023 Amphetamine Screen Ur Not detected Normal None Detect [facility] Comment on above: Order Comment: Speci men Type: Unknown Relevant Clinical Information: Altered mental status, hypoglycemia, hypothermia Ordering Facility: [facility] Address: , , Result Comment: Cuto ff: 500ng/mL Performed By: #### G LUCOMETER #### [facility] Barbiturate Screen Ur Not detected Normal None Detect [facility] Comment on above: Order Comment: Speci men Type: Unknown Relevant Clinical Information: Altered mental status, hypoglycemia, hypothermia Ordering Facility: [facility] Address: , , Result Comment: Cuto ff: 200ng/mL Performed By: #### G LUCOMETER #### [facility] Benzodiazepines Screen Ur Not detected Normal None Detect [facility] Comment on above: Order Comment: Speci men Type: Unknown Relevant Clinical Information: Altered mental status, hypoglycemia, hypothermia Ordering Facility: [facility] Address: , , Result Comment: Cuto ff: 200ng/mL Performed By: #### G LUCOMETER #### [facility] Buprenorphine Screen Ur Not detected Normal None Detect [facility] Comment on above: Order Comment: Speci men Type: Unknown Relevant Clinical Information: Altered mental status, hypoglycemia, hypothermia Ordering Facility: [facility] Address: , , Result Comment: Cuto ff: 5ng/mL Performed By: #### G LUCOMETER #### [facility] Cannabinoid Screen Urine Not detected Normal None Detect [facility] Comment on above: Order Comment: Speci men Type: Unknown Relevant Clinical Information: Altered mental status, hypoglycemia, hypothermia Ordering Facility: [facility] Address: , , Result Comment: Cuto ff: 50ng/mL Performed By: #### G LUCOMETER #### [facility] Cocaine Screen Ur Not detected Normal None Detect [facility] Comment on above: Order Comment: Speci men Type: Unknown Relevant Clinical Information: Altered mental status, hypoglycemia, hypothermia Ordering Facility: [facility] Address: , , Result Comment: Cuto ff: 150ng/mL Performed By: #### G LUCOMETER #### [facility] Fentanyl Screen Ur Not detected Normal None Detect [facility] Comment on above: Order Comment: Speci men Type: Unknown Relevant Clinical Information: Altered mental status, hypoglycemia, hypothermia Ordering Facility: [facility] Address: , , Result Comment: Cuto ff: 1.0 ng/mL Quinine and Quinidine may interfere with Fentanyl screening. Performed By: #### G LUCOMETER #### [facility] Heroin (6-AM) Screen Ur Not detected Normal None Detect [facility] Comment on above: Order Comment: Speci men Type: Unknown Relevant Clinical Information: Altered mental status, hypoglycemia, hypothermia Ordering Facility: [facility] Address: , , Result Comment: Cuto ff: 10ng/mL Performed By: #### G LUCOMETER #### [facility] Methadone Screen Ur Not detected Normal None Detect [facility] Comment on above: Order Comment: Speci men Type: Unknown Relevant Clinical Information: Altered mental status, hypoglycemia, hypothermia Ordering Facility: [facility] Address: , , Result Comment: Cuto ff: 150ng/mL Performed By: #### G LUCOMETER #### [facility] Opiate Screen Ur Not detected Normal None Detect [facility] Comment on above: Order Comment: Speci men Type: Unknown Relevant Clinical Information: Altered mental status, hypoglycemia, hypothermia Ordering Facility: [facility] Address: , , Result Comment: Cuto ff: 300ng/mL Performed By: #### G LUCOMETER #### [facility] Oxycodone Screen Ur Not detected Normal None Detect [facility] Comment on above: Order Comment: Speci men Type: Unknown Relevant Clinical Information: Altered mental status, hypoglycemia, hypothermia Ordering Facility: [facility] Address: , , Result Comment: Cuto ff: 100ng/mL Performed By: #### G LUCOMETER #### [facility] Urine Drug Message Normal [facility] Comment on above: Order Comment: [...] #### G LUCOMETER #### [facility] Urine Microscopicon 08-02-20 23 Hyaline Casts Urine 6 /LPF High 0-5 [facility] Comment on above: Order Comment: Speci men Type: Unknown Relevant Clinical Information: Altered mental status, hypoglycemia, hypothermia Ordering Facility: [facility] Lab-CLIA#[id number] Address: [address] [place] [address] Performed By: #### Aislinn Worthy, CMP #### [facility] Lab-CLIA#[id number] CLIA [id number] [address] [place] [address] Vincent Noemi, DO,FCAP RBC LM.HPF (Urine sed) [#/Area] 1 /[HPF] Normal 0-5 [facility] Comment on above: Order Comment: Speci men Type: Unknown Relevant Clinical Information: Altered mental status, hypoglycemia, hypothermia Ordering Facility: [facility] Lab-CLIA#[id number] Address: [address] [place] [address] Performed By: #### Aislinn Worthy, CMP #### [facility] Lab-CLIA#[id number] CLIA [id number] [address] [place] [address] Phil Franklin, DO,FCAP Squamous Epithelial Cell Urine 0 /HPF Normal 0-4 [facility] Comment on above: Order Comment: Speci men Type: Unknown Relevant Clinical Information: Altered mental status, hypoglycemia, hypothermia Ordering Facility: [facility] Lab-CLIA#[id number] Address: [address] [place] [address] Performed By: #### Aislinn Worthy, CMP #### [facility] Lab-CLIA#[id number] CLIA [id number] [address] [place] [address] Phil Franklin, DO,FCAP Urine Bacteria None Normal None [facility] Comment on above: Order Comment: Speci men Type: Unknown Relevant Clinical Information: Altered mental status, hypoglycemia, hypothermia Ordering Facility: [facility] Lab-CLIA#[id number] Address: [address] [place] [address] Performed By: #### Aislinn Worthy, CMP #### [facility] Lab-CLIA#[id number] CLIA [id number] [address] [place] [address] Phil Franklin, DO,FCAP WBC LM.HPF (Urine sed) [#/Area] 0 /[HPF] Normal 0-4 [facility] Comment on above: Order Comment: Speci men Type: Unknown Relevant Clinical Information: Altered mental status, hypoglycemia, hypothermia Ordering Facility: [facility] Lab-CLIA#[id number] Address: [address] [place] [address] Performed By: #### M G, CMP #### [facility] Lab-CLIA#[id number] CLIA [id number] [address] [place] [address] Phil Franklin DO,JANET Urine blood detectionOrdered By: Helen Jovel on 08-02-2023 RBC Ql (U) Trace Negative [facility] Urine buprenorphine screenOr dered By: Helen Jovel on 08-02-2023 Buprenorphine Screen Ql (U) Not detected None Detect [facility] Comment on above: Cutoff: 5ng/mL Urine colorOrdered By: Vicente Jovel on 08-02-2023 Color (U) Yellow Yellow [facility] Urine fentanyl detection by screening methodOrdered By: Helen Jovel on 08-02-2023 fentaNYL Screen Ql (U) Not detected None Detect [facility] Comment on above: Cutoff: 1.0 ng/mLQui nine and Quinidine may interfere with Fentanyl screening. Urine glucose measurement by automated test strip (mass/volume)Ordered By: Helen Jovel on 08-02-2023 Glucose Auto test strip (U) [Mass/Vol] 500 mg/dL Negative [facility] Urine leukocyte esterase det ection by automated test stripOrdered By: Helen Jovel on 08-02-2023 Leukocyte esterase Auto test strip Ql (U) Negative Negative [facility] Urine methadone screenOrdere d By: Helen Jovel on 08-02-2023 Methadone Screen Ql (U) Not detected None Detect [facility] Comment on above: Cutoff: 150ng/mL Urine nitrite detection by a utomated test stripOrdered By: Helen Jovel on 08-02-2023 Nitrite Auto test strip Ql (U) Negative Negative [facility] Urine pHOrdered By: Helen Jovel on 08-02-2023 pH (U) 5.0 [pH] 0-7.5 [facility] Urine specific gravity measu rementOrdered By: Helen Jovel on 08-02-2023 Specific gravity (U) [Rel density] 1.015 1.005-1.02 5 [facility] Urine urobilinogen measureme ntOrdered By: Helen Jovel on 08-02-2023 Urobilinogen Ql (U) 0.2 E.U./dL 0-2.0 [facility] WBC Auto (Bld) [#/Vol]Ordere d By: Christopher Santiago on 08-02-2023 WBC (Bld) [#/Vol] 14.5 10*3/uL 4.5-11.0 [place] Whole blood ionized calcium measurement adjusted to pH 7.4 (moles/volume)Ordered By: Christopher Santiago on 08-02-2023 Calcium.ionized adjusted to pH 7.4 (Bld) [Moles/Vol] 1.19 mmol/L 1.01-1.33 [facility] [id number] 08-02-2023 [id number] [place] [address] XRay Report Signed Patient: Chandler Minor MR#: [id number] 02 : 1970 Acct: [id number] Age/Sex: 53 / M ADM Date: 08/02/23 Loc: ER. Attending Dr: Ordering Physician: Helen Jovel M.D. Date of Service: Procedure(s): XR chest 1V portable Accession Number(s): [id number] cc: Helen Jovel M.D. CHEST COMPARISON: None [...] Signed By: Og Yang D.O. 08/02/23 0715 [id number] Normal [facility] oxyCODONE Screen Ql (U)Order ed By: Helen Jovel on 08-02-2023 oxyCODONE Ql (U) Not detected None Detect [facility] Comment on above: Cutoff: 100ng/mL pH (BldA)Ordered By: Christopher franklin on 08-02-2023 pH (Bld) 7.34 [pH] 7.35-7.45 [facility] Patient Provided Health Data on 07-29-2023 Patient Provided Health Data [id number]#1.00OTG TIFF [facility] Progress Noteson 07-24-2023 Sales Utility Representative Authentication Interface Message Text Longstanding PDR OU, [...] neck no ICA stenosis - GCA symptoms NAYAK, jaw mikaela, F/C negative - rec go to ED if symptoms recur Return 6 weeks Dilate OU OCT mac OU [facility] Study observation Right reti na by OCTon 07-24-2023 [facility] Radiology Study observation (narrative) [facility] Patient Handouton 07-12-2023 Patient Handout [id number]#1.00OTG TIFF [facility] INTRAVITREAL INJECTION, PHAR MACOLOGIC AGENT [...] mL Route: Intravitreal, Site: Right Eye Lot: [id number], Expiration date: 06/27/2023 Left Eye Preparation included 10% betadine to eyelids. A 30 gauge needle was used. Injection Medications: 1.25 mg bevacizumab 1.25MG/0.05 mL Route: Intravitreal, Site: Left Eye Lot: [id number], Expiration date: 06/27/2023 Post-op Right Eye Post [...] written and verbal post procedure care education. [facility] Progress Noteson 06-26-2023 Sales Utility Representative Authentication Interface Message Text Longstanding PDR OU, DME, mac ischemia OU Sp PRP OU, Repeated injections - last 10/2022 Did not notice any real improvement with injections [place] [address]40 Vision worse per pt A/P 1. DM [...] neck no ICA stenosis - GCA symptoms NAYAK, jaw mikaela, F/C negative - rec go to ED if symptoms recur Return 2 months Dilate OU OCT mac OU Normal [facility] System Study observation Right reti na by JULon 06-26-2023 [facility] Radiology Study observation (narrative) [facility] Basic Metabolic Panelon 07- Anion gap [Moles/Vol] Not performed Normal 6.0-15.0 [facility] Comment on above: Performed By: #### DIMA Matthews, CBC #### [facility] [address] [place] [address] [place] Calcium [Mass/Vol] 8.7 mg/dL Normal 8.6-10.3 [facility] Comment on above: Performed By: #### DIMA Matthews, CBC #### [facility] [address] [place] [address] [place] Chloride [Moles/Vol] 98 mmol/L Normal 98-107 [facility] Comment on above: Performed By: #### DIMA Matthews, CBC #### [facility] [address] [place] [address] [place] CO2 [Moles/Vol] 31.8 mmol/L High 21.0-31.0 [facility] Comment on above: Performed By: #### DIMA Matthews, CBC #### [facility] [address] [place] [address] [place] Creatinine [Mass/Vol] 2.57 mg/dL High 0.70-1.30 [facility] Comment on above: Performed By: #### DIMA Matthews, CBC #### [facility] [address] [place] [address] [place] Creatinine Clr Calc Pharmacy 38.54 [facility] Comment on above: Performed By: #### DIMA Matthews, CBC #### [facility] [address] [place] [address] [place] GFR/1.73 sq M.predicted MDRD (S/P/Bld) [Vol rate/Area] 29.357 mL/min/{1.73_m2} Normal [facility] Comment on above: Performed By: #### DIMA Matthews, CBC #### [facility] [address] Glucose [Mass/Vol] 97 mg/dL Normal 70-100 [facility] Comment on above: Result Comment: [facility] Glucose Reference Range is dependent on time and content of last meal. Glucose of more than 200 mg/dL in a nonstressed, ambulatory subject supports the diagnosis of Diabetes Mellitus. ADA recommended reference range Performed By: #### DIMA Matthews, CBC #### [facility] [address] Potassium Normal 3.5-5.1 [facility] Comment on above: Result Comment: Spec imen hemolyzed, redraw requested Performed By: #### DIMA Matthews, CBC #### [facility] [address] Sodium Normal 136-145 [facility] Comment on above: Result Comment: Spec imen hemolyzed, redraw requested Performed By: #### DIMA Matthews, CBC #### [facility] [address] [place] [address] [place] Urea nitrogen [Mass/Vol] 56 mg/dL High 7-25 [facility] Comment on above: Performed By: #### DIMA Matthews, CBC #### [facility] [address] [place] [address] [place] Basophils Auto (Bld) [#/Vol] Ordered By: Albert Woods on 04-18-2023 Basophils (Bld) [#/Vol] 0.0 10*3/uL 0.0-0.2 [facility] Basophils/100 WBC Auto (Bld) Ordered By: Albert Woods on 04-18-2023 Basophils/100 WBC (Bld) 0.6 % . [facility] Calcium [Mass/volume] in Ser um or PlasmaOrdered By: Albert Woods on 04-18-2023 Calcium [Mass/Vol] 8.7 mg/dL 8.6-10.3 [facility] Carbon dioxide, total [Moles /volume] in Serum or PlasmaOrdered By: Albert Woods on 04-18-2023 CO2 [Moles/Vol] 31.8 mmol/L 21.0-31.0 [facility] Chloride [Moles/volume] in S [place] or PlasmaOrdered By: Albert Woods on 04-18-2023 Chloride [Moles/Vol] 98 mmol/L 98-107 [facility] Complete Blood Count Auto Di ffon 04-18-2023 Basophils (Bld) [#/Vol] 0.0 10*3/uL Normal 0.0-0.2 [facility] Comment on above: Result Comment: PERF ORMED BY: [place] [address] PATHOLOGIST [employer] MOOK BROWN M.D. Performed By: #### M Deacon BMP, CBC #### [facility] [address] Basophils/100 WBC (Bld) 0.6 % Normal . [facility] Comment on above: Performed By: #### M Deacon BMP, CBC #### [facility] [address] Eosinophils (Bld) [#/Vol] 0.3 10*3/uL Normal 0.0-0.45 [facility] Comment on above: Performed By: #### M Deacon BMP, CBC #### [facility] [address] [place] [address] [place] Eosinophils/100 WBC (Bld) 4.2 % Normal . [facility] Comment on above: Performed By: #### M Deacon BMP, CBC #### [facility] [address] [place] [address] [place] Erythrocyte distribution width (RBC) [Ratio] 16.2 % High 12.0-14.8 [facility] Comment on above: Performed By: #### M Deacon BMP, CBC #### [facility] [address] Hematocrit (Bld) [Volume fraction] 38.4 % Low 38.8-50.0 [facility] Comment on above: Performed By: #### DIMA Matthews, CBC #### [address] Hemoglobin (Bld) [Mass/Vol] 12.8 g/dL Low 13.0-17.0 [facility] Comment on above: Performed By: #### DIMA Matthews, CBC #### [address] Lymphocytes (Bld) [#/Vol] 1.3 10*3/uL Normal 1.00-4.8 [facility] Comment on above: Performed By: #### DIMA Matthews, CBC #### [address] Lymphocytes/100 WBC (Bld) 17.3 % Normal . [facility] Comment on above: Performed By: #### DIMA Matthews, CBC #### [address] MCH (RBC) [Entitic mass] 29.7 pg Normal 27.5-35.2 [facility] Comment on above: Performed By: #### DIMA Matthews, CBC #### [address] MCV (RBC) [Entitic vol] 89.5 fL Normal 83.5-[address] [facility] Comment on above: Performed By: #### DIMA Matthews, CBC #### [address] Mean Corpuscular HGB Conc 33.2 g/dL Normal 32.5-35.6 [facility] Comment on above: Performed By: #### Aislinn Worthy BMP, CBC #### [address] Monocytes (Bld) [#/Vol] 0.8 10*3/uL Normal 0.0-0.8 [facility] Comment on above: Performed By: #### M G, BMP, CBC #### [facility] [address] [place] [address] [place] Monocytes/100 WBC (Bld) 10.8 % Normal . F [facility] Comment on above: Performed By: #### Aislinn G, BMP, CBC #### [facility] [address] [place] [address] [place] Neutrophils (Bld) [#/Vol] 5.0 10*3/uL Normal 1.8-7.7 [facility] Comment on above: Performed By: #### Aislinn G, BMP, CBC #### [facility] [address] [place] [address] [place] Neutrophils/100 WBC (Bld) 67.1 % Normal . [facility] Comment on above: Performed By: #### Aislinn Worthy, BMP, CBC #### [facility] [address] NRBC% 0.1 /100{WBC} Normal 0-0.5 [facility] Comment on above: Performed By: #### Aislinn Worthy, BMP, CBC #### [facility] [address] Platelet mean volume (Bld) [Entitic vol] 9.6 fL Normal 6.6-10.1 [facility] Comment on above: Performed By: #### Aislinn G, BMP, CBC #### [facility] [address] [place] [address] [place] Platelets (Bld) [#/Vol] 199 10*3/uL Normal 150-450 [facility] Comment on above: Performed By: #### Aislinn G, BMP, CBC #### [facility] [address] [place] [address] [place] RBC (Bld) [#/Vol] 4.29 10*6/uL Normal 3.90-5.60 [facility] Comment on above: Performed By: #### Aislinn G, BMP, CBC #### [facility] [address] [place] [address] [place] WBC (Bld) [#/Vol] 7.4 10*3/uL Normal 4.1-10.5 [facility] Comment on above: Performed By: #### M G, BMP, CBC #### [facility] [address] Creatinine [Mass/volume] in Serum or PlasmaOrdered By: Albert Woods on 04-18-2023 Creatinine [Mass/Vol] 2.57 mg/dL 0.70-1.30 [facility] Eosinophils Auto (Bld) [#/Vo l]Ordered By: Albert Woods on 04-18-2023 Eosinophils (Bld) [#/Vol] 0.3 10*3/uL 0.0-0.45 [facility] Eosinophils/100 WBC Auto (Bl d)Ordered By: Albert Woods on 04-18-2023 Eosinophils/100 WBC (Bld) 4.2 % . [facility] Erythrocyte distribution wid th Auto (RBC) [Ratio]Ordered By: Albert Woods on 04-18-2023 Erythrocyte distribution width (RBC) [Ratio] 16.2 % 12.0-14.8 [facility] Free K+L LT Chains, Qn, Son 04-18-2023 Free Angelica Light Chains, S 57.0 mg/L High 3.3-19.4 [facility] Comment on above: Performed By: #### R EDRAW K, REDRAW MG, REDRAW NA #### [facility] [address] Free Lambda Light Chains, S 31.9 mg/L High 5.7-26.3 [facility] Comment on above: Performed By: #### R EDRAW K, REDRAW MG, REDRAW NA #### [facility] [address] [place] [address] [place] Angelica/Lambda Ratio, S 1.79 High 0.26-1.65 [facility] Comment on above: Result Comment: Perf ormed at: CB - [facility] [address] [id number] Medical Radiation Dosimetrist: Phil Chua PhD, Phone: [phone] PERFORMED BY: [place] [address] PATHOLOGIST [employer]SEMBLER MOOK BROWN M.D. Performed By: #### R EDLAVELL Baez, REDRAW MG, REDRAW NA #### [facility] [address] [place] [address] [place] Glucose Glucometer (BldC) [M ass/Vol]Ordered By: Kameron Dos Santos on 04-18-2023 Glucose [Mass/Vol] 133 mg/dL [facility] Comment on above: Random Glucose Refer ence Range is dependent on time and content of last meal. Glucose of more than 200 mg/dL in a nonstressed, ambulatory subject supports the diagnosis of Diabetes Mellitus. Glucose Poct Glucometerson 0 04-18-2023 Commemt1 Glu2: Cleaned Meter [facility] Comment on above: Result Comment: PERF ORMED BY: [place] [address] PATHOLOGIST [employer] ASSEMBLER MOOK BROWN M.D. Performed By: #### G LULS #### Point of Care testing , Glucose [Mass/Vol] 133 mg/dL Normal [facility] Comment on above: Result Comment: [place] om Glucose Reference Range is dependent on time and content of last meal. Glucose of more than 200 mg/dL in a nonstressed, ambulatory subject supports the diagnosis of Diabetes Mellitus. Performed By: #### G LULS #### Point of Care testing , Commemt1 Glu2: Cleaned Meter Normal [facility] Comment on above: Result Comment: PERF ORMED BY: [place] [address] PATHOLOGIST [employer] ASSEMBLER MOOK BROWN M.D. Performed By: #### R MONISHA Baez, REDRAW MG, REDRAW NA #### [facility] [address] [place] [address] [place] Glucose [Mass/Vol] 114 mg/dL Normal [facility] Comment on above: Result Comment: [place] om Glucose Reference Range is dependent on time and content of last meal. Glucose of more than 200 mg/dL in a nonstressed, ambulatory subject supports the diagnosis of Diabetes Mellitus. Performed By: #### R ORIANA SHETTY REDRAW NA #### [facility] [address] [place] [address] Glucose [Mass/volume] in Ser um or PlasmaOrdered By: Albert Woods on 04-18-2023 Glucose [Mass/Vol] 97 mg/dL 70-100 [facility] Comment on above: ADA recommended refe rence rangeRandom Glucose Reference Range is dependent on time and content of last meal. Glucose of more than 200 mg/dL in a nonstressed, ambulatory subject supports the diagnosis of Diabetes Mellitus. Hematocrit Auto (Bld) [Volum e fraction]Ordered By: Albert Woods on 04-18-2023 Hematocrit (Bld) [Volume fraction] 38.4 % 38.8-50.0 [facility] Hemoglobin [Mass/volume] in BloodOrdered By: Albert Woods on 04-18-2023 Hemoglobin (Bld) [Mass/Vol] 12.8 g/dL 13.0-17.0 [facility] Immunofixation, (LOVE), Urine on 04-18-2023 Immunofixation, (LOVE), Urine Comment: Normal . [facility] Comment on above: Result Comment: Pres ence of monoclonal protein is unclear at this time. Suggest repeat in 3 to 6 months if clinically indicated. Performed at: - [facility] [id number] Medical Radiation Dosimetrist: Phil Chua PhD, Phone: [phone] PERFORMED BY: [place] [address] PATHOLOGIST [employer] ASSEMBLER MOOK BROWN M.D. Performed By: #### R ORIANA SHETTY REDRAW NA #### [facility] [address] [place] [address] Immunofixation,Serumon 04-18 Immunofixation, Serum Normal . [facility] Comment on above: Result Comment: No m onoclonality detected. Performed By: #### R MONISHA Baez, REDRAW MG, REDRAW NA #### [facility] [address] Immunoglobulin A, Serum 149 mg/dL Normal 90-[address] [facility] Comment on above: Performed By: #### R EDRAW K, REDRAW MG, REDRAW NA #### [facility] [address] Immunoglobulin G 565 mg/dL Low [id number] [facility] Comment on above: Performed By: #### R EDRAW K, REDRAW MG, REDRAW NA #### [facility] [address] Immunoglobulin M, Serum 36 mg/dL Normal 20-[address] [facility] Comment on above: Performed By: #### R EDRAW K, REDRAW MG, REDRAW NA #### [facility] [address] Leukocytes [#/volume] correc [place] for nucleated erythrocytes in Blood by Automated counOrdered By: Albert Woods on 04-18-2023 WBC corrected for nucl RBC Auto (Bld) [#/Vol] 7.4 10*3/uL 4.1-10.5 [facility] Lymphocytes Auto (Bld) [#/Vo l]Ordered By: Albert Woods on 04-18-2023 Lymphocytes (Bld) [#/Vol] 1.3 10*3/uL 1.00-4.8 [facility] Lymphocytes/100 WBC Auto (Bl d)Ordered By: Albert Woods on 04-18-2023 Lymphocytes/100 WBC (Bld) 17.3 % . [facility] MCH Auto (RBC) [Entitic mass ]Ordered By: Albert Woods on 04-18-2023 MCH (RBC) [Entitic mass] 29.7 pg 27.5-35.2 [facility] MCHC Auto (RBC) [Mass/Vol]Or dered By: Albert Woods on 04-18-2023 MCHC (RBC) [Mass/Vol] 33.2 g/dL 32.5-35.6 [facility] MCV Auto (RBC) [Entitic vol] Ordered By: Albert Woods on 04-18-2023 MCV (RBC) [Entitic vol] 89.5 fL 83.5-[address] [facility] Magnesiumon 04-18-2023 Magnesium Normal 1.9-2.7 [facility] Comment on above: Result Comment: Spec imen hemolyzed, redraw requested PERFORMED BY: [facility] [address] [place] [address] PATHOLOGIST [employer]SEMBLER MOOK BROWN M.D. Performed By: #### M G, BMP, CBC #### [facility] [address] Magnesium [Mass/volume] in S [place] or PlasmaOrdered By: Kameron Dos Santos on 04-18-2023 Magnesium [Mass/Vol] 2.4 mg/dL 1.9-2.7 [facility] Monocytes Auto (Bld) [#/Vol] Ordered By: Albert Woods on 04-18-2023 Monocytes (Bld) [#/Vol] 0.8 10*3/uL 0.0-0.8 [facility] Monocytes/100 WBC Auto (Bld) Ordered By: Albert Woods on 04-18-2023 Monocytes/100 WBC (Bld) 10.8 % . [facility] Neutrophils Auto (Bld) [#/Vo l]Ordered By: Albert Woods on 04-18-2023 Neutrophils (Bld) [#/Vol] 5.0 10*3/uL 1.8-7.7 [facility] Neutrophils/100 WBC Auto (Bl d)Ordered By: Albert Woods on 04-18-2023 Neutrophils/100 WBC (Bld) 67.1 % . [facility] No Panel InformationOrdered By: Kameron Dos Santos on 04-18-2023 Bedside Glucose Comment Glu2: cleaned meter [facility] No Panel InformationOrdered By: Albert Woods on 04-18-2023 Estimated GFR (CKD-EPI) 29.357 mL/Min [facility] Creatinine Clearance (Chem 38.54 [facility] Nucleated erythrocytes [Pres ence] in Blood by Automated countOrdered By: Albert Woods on 04-18-2023 Nucleated RBC Auto Ql (Bld) 0.1 /100{WBC} 0-0.5 [facility] Platelet mean volume Auto (B ld) [Entitic vol]Ordered By: Albert Woods on 04-18-2023 Platelet mean volume (Bld) [Entitic vol] 9.6 fL 6.6-10.1 [facility] Platelets Auto (Bld) [#/Vol] Ordered By: Albert Woods on 04-18-2023 Platelets (Bld) [#/Vol] 199 10*3/uL 150-450 [facility] Potassium [Moles/volume] in Serum or PlasmaOrdered By: Kameron Dos Santos on 04-18-2023 Potassium [Moles/Vol] 3.8 mmol/L 3.5-5.1 [facility] RBC Auto (Bld) [#/Vol]Ordere d By: Albert Woods on 04-18-2023 RBC (Bld) [#/Vol] 4.29 10*6/uL 3.90-5.60 [facility] Redraw Magnesiumon 3 Magnesium [Mass/Vol] 2.4 mg/dL Normal 1.9-2.7 [facility] Comment on above: Result Comment: PERF ORMED BY: [place] [address] PATHOLOGIST [employer]SEM[employer]ER MOOK BROWN M.D. Performed By: #### R EDRAW K, REDRAW MG, REDRAW NA #### [facility] [address] Redraw Potassiumon 3 Potassium [Moles/Vol] 3.8 mmol/L Normal 3.5-5.1 [facility] Comment on above: Performed By: #### R EDRAW K, REDRAW MG, REDRAW NA #### [facility] [address] [place] [address] Redraw Sodiumon 04-18-2023 Sodium [Moles/Vol] 138 mmol/L Normal 136-145 [facility] Comment on above: Performed By: #### R MONISHA Baez REDRAW MG, REDRAW NA #### [facility] [address] [place] [address] Serum or plasma anion gap de terminationOrdered By: Albert Woods on 04-18-2023 Anion gap [Moles/Vol] TNP [facility] Comment on above: Test not performed Sodium [Moles/volume] in Ser um or PlasmaOrdered By: Kameron Dos Santos on 04-18-2023 Sodium [Moles/Vol] 138 mmol/L 136-145 [facility] Urea nitrogen [Mass/volume] in Serum or PlasmaOrdered By: Albert Woods on 04-18-2023 Urea nitrogen [Mass/Vol] 56 mg/dL 05-07 [facility] WBC Auto (Bld) [#/Vol]Ordere d By: Albert Woods on 04-18-2023 WBC (Bld) [#/Vol] 7.4 10*3/uL 4.1-10.5 [facility] A1C with Estimated Average G carmelon 04-17-2023 Glucose [Mass/Vol] 315 mg/dL Normal [facility] Comment on above: Result Comment: PERF ORMED BY: [place] [address] PATHOLOGIST [employer] ASSEMBLER MOOK BROWN M.D. Performed By: #### R JEREMY SHETTYRAW MG, REDRAW NA #### [facility] [address] [place] [address] HbA1c (Bld) [Mass fraction] 12.6 % High 4.3-5.6 [facility] Comment on above: Result Comment: Incr eased risk for diabetes: 5.7 - 6.4 diabetes: >6.4 glycemic control for adults with diabetes: <7.0 Performed By: #### R MONISHA K REDRAW MG, REDRAW NA #### [facility] [address] [place] [address] Basic Metabolic Panelon 07-0 Anion gap [Moles/Vol] 10.4 mmol/L Normal 6.0-15.0 [facility] Comment on above: Performed By: #### B MP, MG, CBC #### [facility] [address] Calcium [Mass/Vol] 8.5 mg/dL Low 8.6-10.3 [facility] Comment on above: Performed By: #### B MP, MG, CBC #### [facility] [address] Chloride [Moles/Vol] 100 mmol/L Normal 98-107 [facility] Comment on above: Performed By: #### B MP, MG, CBC #### [facility] [address] CO2 [Moles/Vol] 30.3 mmol/L Normal 21.0-31.0 [facility] Comment on above: Performed By: #### B MP, MG, CBC #### [facility] [address] Creatinine [Mass/Vol] 2.66 mg/dL High 0.70-1.30 [facility] Comment on above: Performed By: #### B MP, MG, CBC #### [facility] [address] [place] [address] [place] Creatinine Clr Calc Pharmacy 36.86 [facility] Comment on above: Performed By: #### B MP, MG, CBC #### [facility] [address] [place] [address] [place] GFR/1.73 sq M.predicted MDRD (S/P/Bld) [Vol rate/Area] 28.169 mL/min/{1.73_m2} [facility] Comment on above: Performed By: #### B MP, MG, CBC #### [facility] [address] Glucose [Mass/Vol] 100 mg/dL Normal 70-100 [facility] Comment on above: Result Comment: [place] Glucose Reference Range is dependent on time and content of last meal. Glucose of more than 200 mg/dL in a nonstressed, ambulatory subject supports the diagnosis of Diabetes Mellitus. ADA recommended reference range Performed By: #### B MP, MG, CBC #### [address] Potassium [Moles/Vol] 3.7 mmol/L Normal 3.5-5.1 [facility] Comment on above: Performed By: #### B MP, MG, CBC #### [address] Sodium [Moles/Vol] 137 mmol/L Normal 136-145 [facility] Comment on above: Performed By: #### B MP, MG, CBC #### [address] Urea nitrogen [Mass/Vol] 57 mg/dL High 7-25 [facility] Comment on above: Performed By: #### B MP, MG, CBC #### [address] Complete Blood Count Auto Di ffon 04-17-2023 Basophils (Bld) [#/Vol] 0.0 10*3/uL Normal 0.0-0.2 [facility] Comment on above: Result Comment: PERF ORMED BY: [place] [address] PATHOLOGIST [employer] MOOK BROWN M.D. Performed By: #### B MP, MG, CBC #### [address] Basophils/100 WBC (Bld) 0.5 % Normal . [facility] Comment on above: Performed By: #### B MP, MG, CBC #### [facility] [address] [place] [address] [place] Eosinophils (Bld) [#/Vol] 0.3 10*3/uL Normal 0.0-0.45 [facility] Comment on above: Performed By: #### B MP, MG, CBC #### [place] [address] [place] Eosinophils/100 WBC (Bld) 4.0 % Normal . [facility] Comment on above: Performed By: #### B MP, MG, CBC #### [address] Erythrocyte distribution width (RBC) [Ratio] 16.4 % High 12.0-14.8 [facility] Comment on above: Performed By: #### B MP, MG, CBC #### [address] Hematocrit (Bld) [Volume fraction] 37.5 % Low 38.8-50.0 [facility] Comment on above: Performed By: #### B MP, MG, CBC #### [address] Hemoglobin (Bld) [Mass/Vol] 12.6 g/dL Low 13.0-17.0 [facility] Comment on above: Performed By: #### B MP, MG, CBC #### [address] Lymphocytes (Bld) [#/Vol] 1.2 10*3/uL Normal 1.00-4.8 [facility] Comment on above: Performed By: #### B MP, MG, CBC #### [address] Lymphocytes/100 WBC (Bld) 14.4 % Normal . [facility] Comment on above: Performed By: #### B MP, MG, CBC #### [address] MCH (RBC) [Entitic mass] 29.8 pg Normal 27.5-35.2 [facility] Comment on above: Performed By: #### B MP, MG, CBC #### [address] MCV (RBC) [Entitic vol] 89.0 fL Normal 83.5-[address] [facility] Comment on above: Performed By: #### B MP, MG, CBC #### [address] Mean Corpuscular HGB Conc 33.5 g/dL Normal 32.5-35.6 [facility] Comment on above: Performed By: #### B MP, MG, CBC #### [facility] [address] Monocytes (Bld) [#/Vol] 0.8 10*3/uL Normal 0.0-0.8 [facility] Comment on above: Performed By: #### B MP, MG, CBC #### [facility] [address] Monocytes/100 WBC (Bld) 10.2 % Normal . [facility] Comment on above: Performed By: #### B MP, MG, CBC #### [facility] [address] Neutrophils (Bld) [#/Vol] 5.8 10*3/uL Normal 1.8-7.7 [facility] Comment on above: Performed By: #### B MP, MG, CBC #### [facility] [address] Neutrophils/100 WBC (Bld) 70.9 % Normal . [facility] Comment on above: Performed By: #### B MP, MG, CBC #### [facility] [address] NRBC% 0.2 /100{WBC} Normal 0-0.5 [facility] Comment on above: Performed By: #### B MP, MG, CBC #### [facility] [address] [place] [address] [place] Platelet mean volume (Bld) [Entitic vol] 9.9 fL Normal 6.6-10.1 [facility] Comment on above: Performed By: #### B MP, MG, CBC #### [facility] [address] Platelets (Bld) [#/Vol] 199 10*3/uL Normal 150-450 [facility] Comment on above: Performed By: #### B MP, MG, CBC #### [facility] [address] RBC (Bld) [#/Vol] 4.21 10*6/uL Normal 3.90-5.60 [facility] Comment on above: Performed By: #### B MP, MG, CBC #### [facility] [address] WBC (Bld) [#/Vol] 8.2 10*3/uL Normal 4.1-10.5 [facility] Comment on above: Performed By: #### B MP, MG, CBC #### [facility] [address] Creatinine [Mass/volume] in UrineOrdered By: Nkechi Kc on 04-17-2023 Creatinine (U) [Mass/Vol] 70.0 mg/dL 14.0-26.0 [facility] Creatinine, Urine (Random)on 04-17-2023 Creatinine, Urine (Random) 70.0 mg/dL High 14.0-26.0 [facility] Comment on above: Performed By: #### R EDRAW K, REDRAW MG, REDRAW NA #### [address] Glucose Poct Glucometerson 0 04-17-2023 Commemt1 Glu2: Cleaned Meter Normal [facility] Comment on above: Result Comment: PERF ORMED BY: [place] [address] PATHOLOGIST [employer]SEM[employer] MOOK BROWN M.D. Performed By: #### R EDRAW K, REDRAW MG, REDRAW NA #### [facility] [address] Glucose [Mass/Vol] 339 mg/dL Normal [facility] Comment on above: Result Comment: [place] Glucose Reference Range is dependent on time and content of last meal. Glucose of more than 200 mg/dL in a nonstressed, ambulatory subject supports the diagnosis of Diabetes Mellitus. Performed By: #### R EDRAW K, REDRAW MG, REDRAW NA #### [address] Glucose mean value [Mass/vol ume] in Blood Estimated from glycated hemoglobinOrdered By: Nkechi Arzatekobe on 04-17-2023 Average glucose Estimated from glycated hemoglobin (Bld) [Mass/Vol] 315 mg/dL [facility] Hemoglobin A1c percentageOrd ered By: Nkechi Kc on 04-17-2023 HbA1c (Bld) [Mass fraction] 12.6 % 4.3-5.6 [facility] Comment on above: Increased risk for d iabetes: 5.7 - 6.4diabetes: >6.4glycemic control for adults with diabetes: <7.0 Magnesiumon 04-17-2023 Magnesium [Mass/Vol] 2.3 mg/dL Normal 1.9-2.7 [facility] Comment on above: Result Comment: PERF ORMED BY: [place] [address] PATHOLOGIST [employer] MOOK BROWN M.D. Performed By: #### B MP, MG, CBC #### [facility] [address] [place] [address] Protein [Mass/volume] in Uri neOrdered By: Georuthann Saleemkobe on 04-17-2023 Protein (U) [Mass/Vol] 330 mg/dL 0-9 [facility] Total Protein, Urineon 04-17 Protein (U) [Mass/Vol] 330 mg/dL High 0-9 [facility] Comment on above: Result Comment: PERF ORMED BY: [place] [address] PATHOLOGIST [employer]SEMBL[employer] MOOK BROWN M.D. Performed By: #### R EDRAW K, REDRAW MG, REDRAW NA #### [facility] [address] [place] [address] Automated epithelial cells c ount in urine sediment (number/area)Ordered By: Kameron Dos Santos on 04-16-2023 Epithelial cells Auto (Urine sed) [#/Area] None seen [HPF] 0-2 [facility] Automated erythrocytes count in urine sediment (number/area)Ordered By: Kameron Dos Santos on 04-16-2023 RBC Auto (Urine sed) [#/Area] None seen [HPF] 0-4 [facility] Automated leukocytes count i n urine sediment (number/area)Ordered By: Kameron Dos Santos on 04-16-2023 WBC Auto (Urine sed) [#/Area] None seen [HPF] 0-4 [facility] Automated urine hyaline cast s count (number/volume)Ordered By: Kameron Dos Santos on 04-16-2023 Hyaline casts Auto (U) [#/Vol] None seen [LPF] 0-1 [facility] Basic Metabolic Panelon Anion gap [Moles/Vol] 12.7 mmol/L Normal 6.0-15.0 [facility] Comment on above: Performed By: #### R EDRAW K, REDRAW MG, REDRAW NA #### [facility] [address] Calcium [Mass/Vol] 8.8 mg/dL Normal 8.6-10.3 [facility] Comment on above: Performed By: #### R EDRAW K, REDRAW MG, REDRAW NA #### [facility] [address] Chloride [Moles/Vol] 100 mmol/L Normal 98-107 [facility] Comment on above: Performed By: #### R EDRAW K, REDRAW MG, REDRAW NA #### [facility] [address] CO2 [Moles/Vol] 28.1 mmol/L Normal 21.0-31.0 [facility] Comment on above: Performed By: #### R EDRAW K, REDRAW MG, REDRAW NA #### [facility] [address] Creatinine [Mass/Vol] 2.80 mg/dL High 0.70-1.30 [facility] Comment on above: Performed By: #### R EDRAW K, REDRAW MG, REDRAW NA #### [address] Creatinine Clr Calc Pharmacy 35.07 [facility] Comment on above: Result Comment: PERF ORMED BY: [place] [address] PATHOLOGIST [employer]SEM[employer] MOOK BROWN M.D. Performed By: #### R EDRAW K, REDRAW MG, REDRAW NA #### [place] [address] [place] GFR/1.73 sq M.predicted MDRD (S/P/Bld) [Vol rate/Area] 26.487 mL/min/{1.73_m2} [facility] Comment on above: Performed By: #### R EDRAW K, REDRAW MG, REDRAW NA #### [address] Glucose [Mass/Vol] 161 mg/dL High 70-100 [facility] Comment on above: Result Comment: [facility] Glucose Reference Range is dependent on time and content of last meal. Glucose of more than 200 mg/dL in a nonstressed, ambulatory subject supports the diagnosis of Diabetes Mellitus. ADA recommended reference range Performed By: #### R EDRAW K, REDRAW MG, REDRAW NA #### [address] Potassium [Moles/Vol] 3.8 mmol/L Normal 3.5-5.1 [facility] Comment on above: Performed By: #### R EDRAW K, REDRAW MG, REDRAW NA #### [place] [address] [place] Sodium [Moles/Vol] 137 mmol/L Normal 136-145 [facility] Comment on above: Performed By: #### R EDRAW K, REDRAW MG, REDRAW NA #### [place] [address] [place] Urea nitrogen [Mass/Vol] 54 mg/dL High 7-25 [facility] Comment on above: Performed By: #### R EDRAW K, REDRAW MG, REDRAW NA #### [facility] [address] [place] [address] Anion gap [Moles/Vol] 12.5 mmol/L Normal 6.0-15.0 [facility] Comment on above: Performed By: #### R EDRAW K, REDRAW MG, REDRAW NA #### [facility] [address] [place] [address] Calcium [Mass/Vol] 8.2 mg/dL Low 8.6-10.3 [facility] Comment on above: Performed By: #### R EDRAW K, REDRAW MG, REDRAW NA #### [facility] [address] [place] [address] Chloride [Moles/Vol] 98 mmol/L Normal 98-107 [facility] Comment on above: Performed By: #### R EDRAW K, REDRAW MG, REDRAW NA #### [facility] [address] [place] [address] CO2 [Moles/Vol] 31.8 mmol/L High 21.0-31.0 [facility] Comment on above: Performed By: #### R EDRAW K, REDRAW MG, REDRAW NA #### [facility] [address] [place] [address] Creatinine [Mass/Vol] 3.23 mg/dL High 0.70-1.30 [facility] Comment on above: Performed By: #### R EDRAW K, REDRAW MG, REDRAW NA #### [facility] [address] [place] [address] Creatinine Clr Calc Pharmacy 30.52 [facility] Comment on above: Performed By: #### R EDRAW K, REDRAW MG, REDRAW NA #### [facility] [address] [place] [address] GFR/1.73 sq M.predicted MDRD (S/P/Bld) [Vol rate/Area] 22.315 mL/min/{1.73_m2} Normal [facility] Comment on above: Performed By: #### R EDRAW K, REDRAW MG, REDRAW NA #### [facility] [address] [place] [address] Glucose [Mass/Vol] 133 mg/dL High 70-100 [facility] Comment on above: Result Comment: [place] Glucose Reference Range is dependent on time and content of last meal. Glucose of more than 200 mg/dL in a nonstressed, ambulatory subject supports the diagnosis of Diabetes Mellitus. ADA recommended reference range Performed By: #### R EDRAW K, REDRAW MG, REDRAW NA #### [facility] [address] [place] [address] Potassium [Moles/Vol] 3.3 mmol/L Low 3.5-5.1 [facility] Comment on above: Performed By: #### R EDRAW K, REDRAW MG, REDRAW NA #### [facility] [address] [place] [address] Sodium [Moles/Vol] 139 mmol/L Normal 136-145 [facility] Comment on above: Performed By: #### R EDRAW K, REDRAW MG, REDRAW NA #### [address] Urea nitrogen [Mass/Vol] 56 mg/dL High 7-25 [facility] Comment on above: Performed By: #### R EDRAW K, REDRAW MG, REDRAW NA #### [address] Bilirubin Test strip Ql (U)O rdered By: Kameron Dos Santos on 04-16-2023 Bilirubin Ql (U) Negative Negative [facility] CT abdomen pelvis wo conon 0 04-16-2023 CT abdomen pelvis wo con [facility] [place] [address] [place] [address] CT Scan Report Signed Patient: Chandler Minor MR#: [id number] [birth year] : 1970 Acct:[id number] Age/Sex: 52 / M ADM Date: 04/15/23 Loc: Room: [address] [place] [address] Type: ADM IN Attending Dr: Kameron Dos [...] Jesu Reese M.D.04/16/2023 6:22 PM Dictation Location: [place] [address] Transcribed By: [facility] 04/16/231821 Dictated By: Jesu Reese DO 04/16/231817 Signed By: 04/16/23 182 Normal [facility] Color Auto (U)Ordered By: Rona Dos Santos on 04-16-2023 Color (U) Yellow Yellow [facility] Complete Blood Count Auto Di ffon 04-16-2023 Basophils (Bld) [#/Vol] 0.0 10*3/uL Normal 0.0-0.2 [facility] Comment on above: Result Comment: PERF ORMED BY: [facility] [address] PATHOLOGIST [employer] MOOK BROWN M.D. Performed By: #### R EDRAW K, REDRAW MG, REDRAW NA #### [address] Basophils/100 WBC (Bld) 0.5 % Normal . [facility] Comment on above: Performed By: #### R EDRAW K, REDRAW MG, REDRAW NA #### [address] Eosinophils (Bld) [#/Vol] 0.3 10*3/uL Normal 0.0-0.45 [facility] Comment on above: Performed By: #### R EDRAW K, REDRAW MG, REDRAW NA #### [address] Eosinophils/100 WBC (Bld) 3.7 % Normal . [facility] Comment on above: Performed By: #### R EDRAW K, REDRAW MG, REDRAW NA #### [address] Erythrocyte distribution width (RBC) [Ratio] 16.3 % High 12.0-14.8 [facility] Comment on above: Performed By: #### R EDRAW K, REDRAW MG, REDRAW NA #### [address] Hematocrit (Bld) [Volume fraction] 38.1 % Low 38.8-50.0 [facility] Comment on above: Performed By: #### R EDRAW K, REDRAW MG, REDRAW NA #### [address] Hemoglobin (Bld) [Mass/Vol] 12.6 g/dL Low 13.0-17.0 [facility] Comment on above: Performed By: #### R EDRAW K, REDRAW MG, REDRAW NA #### [address] Lymphocytes (Bld) [#/Vol] 1.4 10*3/uL Normal 1.00-4.8 [facility] Comment on above: Performed By: #### R EDRAW K, REDRAW MG, REDRAW NA #### [facility] [address] [place] [address] Lymphocytes/100 WBC (Bld) 17.7 % Normal . [facility] Comment on above: Performed By: #### R EDRAW K, REDRAW MG, REDRAW NA #### [address] MCH (RBC) [Entitic mass] 29.7 pg Normal 27.5-35.2 [facility] Comment on above: Performed By: #### R EDRAW K, REDRAW MG, REDRAW NA #### [address] MCV (RBC) [Entitic vol] 90.3 fL Normal 83.5-[address] [facility] Comment on above: Performed By: #### R EDRAW K, REDRAW MG, REDRAW NA #### [facility] [address] [place] [address] Mean Corpuscular HGB Conc 32.9 g/dL Normal 32.5-35.6 [facility] Comment on above: Performed By: #### R EDRAW K, REDRAW MG, REDRAW NA #### [facility] [address] [place] [address] Monocytes (Bld) [#/Vol] 0.7 10*3/uL Normal 0.0-0.8 [facility] Comment on above: Performed By: #### R EDRAW K, REDRAW MG, REDRAW NA #### [address] Monocytes/100 WBC (Bld) 8.8 % Normal . [facility] Comment on above: Performed By: #### R EDRAW K, REDRAW MG, REDRAW NA #### [address] [place] [address] [place] Neutrophils (Bld) [#/Vol] 5.4 10*3/uL Normal 1.8-7.7 [facility] Comment on above: Performed By: #### R EDRAW K, REDRAW MG, REDRAW NA #### [address] Neutrophils/100 WBC (Bld) 69.3 % Normal . [facility] Comment on above: Performed By: #### R EDRAW K, REDRAW MG, REDRAW NA #### [facility] [address] [place] [address] NRBC% 0.1 /100{WBC} Normal 0-0.5 [facility] Comment on above: Performed By: #### R EDRAW K, REDRAW MG, REDRAW NA #### [address] Platelet mean volume (Bld) [Entitic vol] 9.5 fL Normal 6.6-10.1 [facility] Comment on above: Performed By: #### R EDRAW K, REDRAW MG, REDRAW NA #### [address] Platelets (Bld) [#/Vol] 187 10*3/uL Normal 150-450 [facility] Comment on above: Performed By: #### R EDRAW K, REDRAW MG, REDRAW NA #### [address] RBC (Bld) [#/Vol] 4.22 10*6/uL Normal 3.90-5.60 [facility] Comment on above: Performed By: #### R EDRAW K, REDRAW MG, REDRAW NA #### [address] WBC (Bld) [#/Vol] 7.8 10*3/uL Normal 4.1-10.5 [facility] Comment on above: Performed By: #### R EDRAW K, REDRAW MG, REDRAW NA #### [facility] [address] [place] [address] [place] Creatinine, Urine (Random)on 04-16-2023 Creatinine, Urine (Random) 57.0 mg/dL High 14.0-26.0 [facility] Comment on above: Result Comment: PERF ORMED BY: [place] [address] PATHOLOGIST [employer]SEM[employer]ER MOOK BROWN M.D. Performed By: #### R EDRAW K, REDRAW MG, REDRAW NA #### [facility] [address] [place] [address] [place] Dipstick and Microscopicon 0 04-16-2023 Appearance (U) Clear Normal Clear [facility] Comment on above: Order Comment: Name Collection Type:: Clean-Voided Midstream Performed By: #### R EDRAW K, REDRAW MG, REDRAW NA #### [facility] [address] [place] [address] [place] Bacteria,Urine None Seen Normal None Seen [facility] Comment on above: Order Comment: Name Collection Type:: Clean-Voided Midstream Performed By: #### R EDRAW K, REDRAW MG, REDRAW NA #### [facility] [address] [place] [address] [place] Bilirubin,Urine Negative Normal Negative [facility] Comment on above: Order Comment: Name Collection Type:: Clean-Voided Midstream Performed By: #### R EDRAW K, REDRAW MG, REDRAW NA #### [facility] [address] [place] [address] [place] Color (U) Yellow Normal Yellow [facility] Comment on above: Order Comment: Name Collection Type:: Clean-Voided Midstream Performed By: #### R EDRAW K, REDRAW MG, REDRAW NA #### [facility] [address] [place] [address] [place] Glucose Ql (U) >=1000 High Normal [facility] Comment on above: Order Comment: Name Collection Type:: Clean-Voided Midstream Performed By: #### R EDRAW K, REDRAW MG, REDRAW NA #### [facility] [address] [place] [address] Hyaline Casts,Urine None Seen Normal 0-1 [facility] Comment on above: Order Comment: Name Collection Type:: Clean-Voided Midstream Result Comment: PERF ORMED BY: [place] [address] PATHOLOGIST [employer]SEMBLER MOOK BROWN M.D. Performed By: #### R EDRAW K, REDRAW MG, REDRAW NA #### [address] Ketones Ql (U) Negative Normal Negative [facility] Comment on above: Order Comment: Name Collection Type:: Clean-Voided Midstream Performed By: #### R EDRAW K, REDRAW MG, REDRAW NA #### [address] Leukocyte esterase Test strip Ql (U) Negative Normal Negative [facility] Comment on above: Order Comment: Name Collection Type:: Clean-Voided Midstream Performed By: #### R EDRAW K, REDRAW MG, REDRAW NA #### [address] Nitrite,Urine Negative Normal Negative [facility] Comment on above: Order Comment: Name Collection Type:: Clean-Voided Midstream Performed By: #### R EDRAW K, REDRAW MG, REDRAW NA #### [address] Occult Blood,Urine Negative Normal Negative [facility] Comment on above: Order Comment: Name Collection Type:: Clean-Voided Midstream Result Comment: PERF ORMED BY: [place] [address] PATHOLOGIST [employer]SEM[employer]ER MOOK BROWN M.D. Performed By: #### R EDRAW K, REDRAW MG, REDRAW NA #### [address] [address] [place] pH (U) 6.5 [pH] Normal 5.0-9.0 [facility] Comment on above: Order Comment: Name Collection Type:: Clean-Voided Midstream Performed By: #### R EDRAW K, REDRAW MG, REDRAW NA #### [facility] [address] [place] [address] Protein (U) [Mass/Vol] 300 mg/dL High Negative [facility] Comment on above: Order Comment: Name Collection Type:: Clean-Voided Midstream Performed By: #### R EDRAW K, REDRAW MG, REDRAW NA #### [facility] [address] [place] [address] RBC,Urine None Seen Normal 0-4 [facility] Comment on above: Order Comment: Name Collection Type:: Clean-Voided Midstream Performed By: #### R EDRAW K, REDRAW MG, REDRAW NA #### [facility] [address] [place] [address] Specificy [place],Urine 1.017 Normal 1.00 1-1.03 0 [facility] Comment on above: Order Comment: Name Collection Type:: Clean-Voided Midstream Performed By: #### R EDRAW K, REDRAW MG, REDRAW NA #### [facility] [address] [place] [address] Squamous Epithelial Cell,Urine None Seen Normal 0-2 [facility] Comment on above: Order Comment: Name Collection Type:: Clean-Voided Midstream Performed By: #### R EDRAW K, REDRAW MG, REDRAW NA #### [facility] [address] [place] [address] Urobilinogen,Urine Normal Normal Normal [facility] Comment on above: Order Comment: Name Collection Type:: Clean-Voided Midstream Performed By: #### R EDRAW K, REDRAW MG, REDRAW NA #### [facility] [address] [place] [address] WBC,Urine None Seen Normal 0-4 [facility] Comment on above: Order Comment: Name Collection Type:: Clean-Voided Midstream Performed By: #### R EDRAW K, REDRAW MG, REDRAW NA #### [facility] [address] Glucose Poct Glucometerson 0 04-16-2023 Commemt1 Glu2: Cleaned Meter Normal [facility] Comment on above: Result Comment: PERF ORMED BY: [place] [address] PATHOLOGIST [employer]SEMBLER MOOK BROWN M.D. Performed By: #### R EDRAW K, REDRAW MG, REDRAW NA #### [facility] [address] [place] [address] Glucose [Mass/Vol] 193 mg/dL Normal [facility] Comment on above: Result Comment: [facility] Glucose Reference Range is dependent on time and content of last meal. Glucose of more than 200 mg/dL in a nonstressed, ambulatory subject supports the diagnosis of Diabetes Mellitus. Performed By: #### R EDW K, REDRAW MG, REDRAW NA #### [facility] [address] [place] [address] Ketones Auto test strip (U) [Mass/Vol]Ordered By: Kameron Dos Santos on 04-16-2023 Ketones (U) [Mass/Vol] Negative Negative [facility] Magnesiumon 04-16-2023 Magnesium [Mass/Vol] 2.3 mg/dL Normal 1.9-2.7 [facility] Comment on above: Result Comment: PERF ORMED BY: [place] [address] PATHOLOGIST [employer] ASSEMBLER MOOK BROWN M.D. Performed By: #### R EDW K, REDRAW MG, REDRAW NA #### [facility] [address] [place], [place] [id number] [facility] Nitrite Test strip Ql (U)Ord ered By: Kameron Dos Santos on 04-16-2023 Nitrite Ql (U) Negative Negative [facility] Protein Auto test strip (U) [Mass/Vol]Ordered By: Kameron Dos Santos on 04-16-2023 Protein (U) [Mass/Vol] 300 mg/dL Negative [facility] Sodium [Moles/volume] in Uri neOrdered By: Kameron Dos Santos on 04-16-2023 Sodium (U) [Moles/Vol] 67.0 mmol/L [facility] Comment on above: No reference range e stablished Sodium, Urineon 04-16-2023 Sodium (U) [Moles/Vol] 67.0 mmol/L Normal [facility] Comment on above: Result Comment: No r eference range established Performed By: #### R MONISHA KORIANA MGCORAW NA #### [address] Specific gravity Auto test s trip (U) [Rel density]Ordered By: Kameron Dos Santos on 04-16-2023 Specific gravity (U) [Rel density] 1.017 1.001-1.03 0 [facility] Urine bacteria detection by automated methodOrdered By: Kameron Dos Santos on 04-16-2023 Bacteria Auto Ql (U) None seen None Seen [facility] Urine clarity by refractomet ry automatedOrdered By: Kameron Dos Santos on 04-16-2023 Clarity Refractometry automated (U) Clear Clear [facility] Urine glucose measurement by automated test strip (mass/volume)Ordered By: Kameron Dos Santos on 04-16-2023 Glucose Auto test strip (U) [Mass/Vol] >=1000 mg/dL Normal [facility] Urine hemoglobin detection b y automated test stripOrdered By: Kameron Dos Santos on 04-16-2023 Hemoglobin Auto test strip Ql (U) Negative Negative [facility] Urine leukocyte esterase det ection by automated test stripOrdered By: Kameron Dos Santos on 04-16-2023 Leukocyte esterase Auto test strip Ql (U) Negative Negative [facility] Urobilinogen Auto test strip (U) [Mass/Vol]Ordered By: Kameron Dos Santos on 04-16-2023 Urobilinogen (U) [Mass/Vol] Normal mg/dL Normal [facility] pH Auto test strip (U)Ordere d By: Kameron Dos Santos on 04-16-2023 pH (U) 6.5 [pH] 5.0-9.0 [facility] OSMOLALITY URINEon Osmolality, Urine 330 mOsmol/kg Normal [facility] Comment on above: Result Comment: 24 h r : 300 - 900 Random: 50 - 1400 After 12hr fluid restriction: >850 Performed By: #### P OCGLUC #### [facility] [address] [place] [address] [address] Spring Nash BNPon 03-09-2023 Natriuretic peptide B (Bld) [Mass/Vol] 1950.0 pg/mL Critically high <=900.0 [facility] Comment on above: Performed By: #### B MP #### [facility] [address] [place] [address] Dr. Spring Nsah CBC AUTO DIFFon 03-09-2023 BASO # 0.0 103/ul Normal 0.0-0.1 [facility] Comment on above: Performed By: #### C MP, HSTROPN, BNP #### [facility] [address] [place] [address] [address] Spring Nash Basophils/100 WBC (Bld) 0.3 % Normal 0.2-2.0 [facility] Comment on above: Performed By: #### C MP, HSTROPN, BNP #### [facility] [address] [place] [address] [address] Spring Nash EO # 0.3 103/ul Normal 0.0-0.7 [facility] Comment on above: Performed By: #### C MP, HSTROPN, BNP #### [facility] [address] [place] [address] [address] Spring Nash Eosinophils/100 WBC (Bld) 5.9 % Normal 0.9-7.0 [facility] Comment on above: Performed By: #### C MP, HSTROPN, BNP #### [facility] [address] [place] [address] Dr. Spring Nash Erythrocyte distribution width (RBC) [Ratio] 15.6 % Critically high 11.0-15.0 [facility] Comment on above: Performed By: #### C MP, HSTROPN, BNP #### [facility] [address] [place] [address] Dr. Spring Nash Hematocrit (Bld) [Volume fraction] 31.4 % Critically low 42.0-54.0 [facility] Comment on above: Performed By: #### C MP, HSTROPN, BNP #### [facility] [address] [place] [address] Dr. Spring Nash Hemoglobin (Bld) [Mass/Vol] 10.0 g/dL Critically low 14.0-18.0 [facility] Comment on above: Performed By: #### C MP, HSTROPN, BNP #### [facility] [address] [place] [address] Dr. Spring Nash IG # 0.02 10e3/ul Normal 0.00-0.03 [facility] Comment on above: Performed By: #### C MP, HSTROPN, BNP #### [facility] [address] [place] [address] Dr. Spring Nash IG % 0.3 % Normal 0.0-0.5 [facility] Comment on above: Performed By: #### C MP, HSTROPN, BNP #### [facility] [address] [place] [address] Dr. Spring Nash LYMPH # 1.0 103/ul Critically low 1.2-3.8 [facility] Comment on above: Performed By: #### C MP, HSTROPN, BNP #### [facility] [address] [place] [address] Dr. Spring Nash Lymphocytes/100 WBC (Bld) 17.6 % Critically low 20.5-60.0 [facility] Comment on above: Performed By: #### C MP, HSTROPN, BNP #### [facility] [address] [place] [address] Dr. Spring Nash MANUAL DIFF REQ NO Normal [facility] Comment on above: Performed By: #### C MP, HSTROPN, BNP #### [facility] [address] [place] [address] Dr. Spring Nash MCH (RBC) [Entitic mass] 29.3 pg Normal 25.9-34.0 [facility] Comment on above: Performed By: #### C MP, HSTROPN, BNP #### [facility] [address] [place] [address] Dr. Spring Nash MCHC (RBC) [Mass/Vol] 31.8 g/dL Normal 29.9-35.2 [facility] Comment on above: Performed By: #### C MP, HSTROPN, BNP #### [facility] [address] [place] [address] Dr. Spring Nash MCV (RBC) [Entitic vol] 92.1 fL Normal 80.0-94.0 [facility] Comment on above: Performed By: #### C MP, HSTROPN, BNP #### [facility] [address] [place] [address] Dr. Spring Nash MONO # 0.6 103/ul Normal 0.3-0.8 [facility] Comment on above: Performed By: #### C MP, HSTROPN, BNP #### [facility] [address] [place] [address] Dr. Spring Nash Monocytes/100 WBC (Bld) 9.9 % Normal 1.7-12.0 [facility] Comment on above: Performed By: #### C MP, HSTROPN, BNP #### [facility] [address] [place] [address] Dr. Spring Nash NEUT # 3.8 103/ul Normal 1.4-6.5 [facility] Comment on above: Performed By: #### C MP, HSTROPN, BNP #### [facility] [address] [place] [address] Dr. Spring Nash Neutrophils/100 WBC (Bld) 66.0 % Normal 43.0-75.0 [facility] Comment on above: Performed By: #### C MP, HSTROPN, BNP #### [facility] [address] [place] [address] [address] Spring Nash Platelet mean volume (Bld) [Entitic vol] 11.6 fL Normal 9.5-13.5 [facility] Comment on above: Performed By: #### C MP, HSTROPN, BNP #### [facility] [address] [place] [address] [address] Spring Nash PLT 213 103/ul Normal 150-450 [facility] Comment on above: Performed By: #### C MP, HSTROPN, BNP #### [facility] [address] [place] [address] [address] Spring Nash RBC 3.41 106/ul Critically low 4.70-6.10 [facility] Comment on above: Performed By: #### C MP, HSTROPN, BNP #### [facility] [address] [place] [address] Dr. Spring Nash WBC 5.7 103/ul Normal 4.0-11.0 [facility] Comment on above: Performed By: #### C MP, HSTROPN, BNP #### [facility] [address] [place] [address] [address] Spring Nash POINT OF CARE GLUCOSEon 02-12 Glucose [Mass/Vol] 233 mg/dL Critically high 74-106 [facility] Comment on above: Performed By: #### B MP #### [facility] [address] [place] [address] Dr. Spring Nash Glucose [Mass/Vol] 129 mg/dL Critically high 74-106 [facility] Comment on above: Performed By: #### C MP, HSTROPN, BNP #### [facility] [address] [place] [address] [address] Spring Nash PROF 14(COMP METB)on 023 Albumin [Mass/Vol] 2.5 g/dL Critically low 3.4-5.0 [facility] Comment on above: Performed By: #### B MP #### [facility] [address] [place] [address] Dr. Spring Nash Albumin/Globulin [Mass ratio] 0.8 {ratio} Normal [facility] Comment on above: Performed By: #### B MP #### [facility] [address] [place] [address] Dr. Spring Nash ALP [Catalytic activity/Vol] 105 U/L Normal 46-116 [facility] Comment on above: Performed By: #### B MP #### [facility] [address] [place] [address] Dr. Spring Nash ALT [Catalytic activity/Vol] 18 U/L Normal 16-63 [facility] Comment on above: Performed By: #### B MP #### [facility] [address] [place] [address] Dr. Spring Nash Anion gap [Moles/Vol] 10.3 mmol/L Normal [facility] Comment on above: Performed By: #### B MP #### [facility] [address] [place] [address] Dr. Spring Nash AST [Catalytic activity/Vol] 14 U/L Critically low 15-37 [facility] Comment on above: Performed By: #### B MP #### [facility] [address] [place] [address] Dr. Spring Nash Bilirubin [Mass/Vol] 0.3 mg/dL Normal 0.2-1.0 [facility] Comment on above: Performed By: #### B MP #### [facility] [address] [place] [address] Dr. Spring Nash Calcium [Mass/Vol] 8.4 mg/dL Critically low 8.5-10.1 [facility] Comment on above: Performed By: #### B MP #### [facility] [address] [place] [address] Dr. Spring Nash Chloride [Moles/Vol] 106 mmol/L Normal 98-107 [facility] Comment on above: Performed By: #### B MP #### [facility] [address] [place] [address] Dr. Spring Nash CO2 [Moles/Vol] 30.2 mmol/L Normal 21.0-32.0 [facility] Comment on above: Performed By: #### B MP #### [facility] [address] [place] [address] [address] Spring Nash Creatinine [Mass/Vol] 2.95 mg/dL Critically high 0.70-1.30 [facility] Comment on above: Performed By: #### B MP #### [facility] [address] [address] [address] Spring Nash EGFR-AF PARAGUAYAN 27 mL/min/1.73m2 Critically low >=60 [facility] Comment on above: Performed By: #### B MP #### [facility] [address] [address] [address] Spring Nash EGFR-NON AF PARAGUAYAN 23 mL/min/1.73m2 Critically low >=60 [facility] Comment on above: Performed By: #### B MP #### [facility] [address] [address] [address] Spring Nash Globulin (S) [Mass/Vol] 3.2 g/dL Normal [facility] Comment on above: Performed By: #### B MP #### [facility] [address] [address] [address] Spring Nash Glucose [Mass/Vol] 153 mg/dL Critically high 74-106 [facility] Comment on above: Performed By: #### B MP #### [facility] [address] [address] [address] Spring Nash Potassium [Moles/Vol] 4.5 mmol/L Normal 3.5-5.1 [facility] Comment on above: Performed By: #### B MP #### [facility] [address] [address] [address] Spring Nash Protein [Mass/Vol] 5.7 g/dL Critically low 6.4-8.2 [facility] Comment on above: Performed By: #### B MP #### [facility] [address] [address] [address] Spring Nsah Sodium [Moles/Vol] 142 mmol/L Normal 136-145 [facility] Comment on above: Performed By: #### B MP #### [facility] [address] [place] [address] Dr. Spring Nash Urea nitrogen [Mass/Vol] 50.0 mg/dL Critically high 7.0-18.0 [facility] Comment on above: Performed By: #### B MP #### [facility] [address] [place] [address] Dr. Spring Nash Urea nitrogen/Creatinine [Mass ratio] 16.9 mg/mg Normal [facility] Comment on above: Performed By: #### B MP #### [facility] [address] [place] [address] Dr. Spring Nash BNPon 03-08-2023 Natriuretic peptide B (Bld) [Mass/Vol] 2675.0 pg/mL Critically high <=900.0 [facility] Comment on above: Performed By: #### P OCGLUC #### [facility] [address] [place] [address] Dr. Spring Nash CBC AUTO DIFFon 03-08-2023 BASO # 0.0 103/ul Normal 0.0-0.1 [facility] Comment on above: Performed By: #### C MP, HSTROPN, BNP #### [facility] [address] [place] [address] Dr. Spring Nash Basophils/100 WBC (Bld) 0.5 % Normal 0.2-2.0 [facility] Comment on above: Performed By: #### C MP, HSTROPN, BNP #### [facility] [address] [place] [address] Dr. Spring Nash EO # 0.4 103/ul Normal 0.0-0.7 [facility] Comment on above: Performed By: #### C MP, HSTROPN, BNP #### [facility] [address] [place] [address] Dr. Spring Nash Eosinophils/100 WBC (Bld) 5.3 % Normal 0.9-7.0 [facility] Comment on above: Performed By: #### C MP, HSTROPN, BNP #### [facility] [address] [place] [address] Dr. Spring Nash Erythrocyte distribution width (RBC) [Ratio] 15.5 % Critically high 11.0-15.0 [facility] Comment on above: Performed By: #### C MP, HSTROPN, BNP #### [facility] [address] [place] [address] Dr. pSring Nash Hematocrit (Bld) [Volume fraction] 30.5 % Critically low 42.0-54.0 [facility] Comment on above: Performed By: #### C MP, HSTROPN, BNP #### [facility] [address] [place] [address] Dr. Spring Nash Hemoglobin (Bld) [Mass/Vol] 9.7 g/dL Critically low 14.0-18.0 [facility] Comment on above: Performed By: #### C MP, HSTROPN, BNP #### [facility] [address] [place] [address] Dr. Spring Nash IG # 0.03 10e3/ul Normal 0.00-0.03 [facility] Comment on above: Performed By: #### C MP, HSTROPN, BNP #### [facility] [address] [place] [address] Dr. Spring Nash IG % 0.5 % Normal 0.0-0.5 [facility] Comment on above: Performed By: #### C MP, HSTROPN, BNP #### [facility] [address] [place] [address] Dr. Spring Nash LYMPH # 1.0 103/ul Critically low 1.2-3.8 [facility] Comment on above: Performed By: #### C MP, HSTROPN, BNP #### [facility] [address] [place] [address] Dr. Spring Nash Lymphocytes/100 WBC (Bld) 14.9 % Critically low 20.5-60.0 [facility] Comment on above: Performed By: #### C MP, HSTROPN, BNP #### [facility] [address] [address] [address] Spring Nash MANUAL DIFF REQ NO Normal [facility] Comment on above: Performed By: #### C MP, HSTROPN, BNP #### [facility] [address] [place] [address] Dr. Spring Nash MCH (RBC) [Entitic mass] 29.6 pg Normal 25.9-34.0 [facility] Comment on above: Performed By: #### C MP, HSTROPN, BNP #### [facility] [address] [place] [address] Dr. Spring Nash MCHC (RBC) [Mass/Vol] 31.8 g/dL Normal 29.9-35.2 [facility] Comment on above: Performed By: #### C MP, HSTROPN, BNP #### [facility] [address] [place] [address] Dr. Spring Nash MCV (RBC) [Entitic vol] 93.0 fL Normal 80.0-94.0 [facility] Comment on above: Performed By: #### C MP, HSTROPN, BNP #### [facility] [address] [place] [address] Dr. Spring Nash MONO # 0.5 103/ul Normal 0.3-0.8 [facility] Comment on above: Performed By: #### C MP, HSTROPN, BNP #### [facility] [address] [place] [address] Dr. Spring Nash Monocytes/100 WBC (Bld) 7.9 % Normal 1.7-12.0 [facility] Comment on above: Performed By: #### C MP, HSTROPN, BNP #### [facility] [address] [place] [address] Dr. Spring Nash NEUT # 4.7 103/ul Normal 1.4-6.5 [facility] Comment on above: Performed By: #### C MP, HSTROPN, BNP #### [facility] [address] [place] [address] Dr. Spring Nash Neutrophils/100 WBC (Bld) 70.9 % Normal 43.0-75.0 [facility] Comment on above: Performed By: #### C MP HSTROPN, BNP #### [facility] [address] [address] [address] Spring Nash Platelet mean volume (Bld) [Entitic vol] 11.7 fL Normal 9.5-13.5 [facility] Comment on above: Performed By: #### C MP HSTROPN, BNP #### [facility] [address] [address] [address] Spring Nash PLT 204 103/ul Normal 150-450 [facility] Comment on above: Performed By: #### C MEHREEN HSTROPN, BNP #### [facility] [address] [place] [address] Dr. Spring Nash RBC 3.28 106/ul Critically low 4.70-6.10 [facility] Comment on above: Performed By: #### C MEHREEN HSTROPN, BNP #### [facility] [address] [place] [address] Dr. Spring Nash WBC 6.6 103/ul Normal 4.0-11.0 [facility] Comment on above: Performed By: #### C MEHREEN HSTROPN, BNP #### [facility] [address] [place] [address] Dr. Spring Nash POINT OF CARE GLUCOSEon 02-12 Glucose [Mass/Vol] 273 mg/dL Critically high 74-106 [facility] Comment on above: Performed By: #### P OCGLUC #### [facility] [address] [place] [address] Dr. Spring Nash Glucose [Mass/Vol] 194 mg/dL Critically high 74-106 [facility] Comment on above: Performed By: #### B MP #### [facility] [address] [place] [address] Dr. Spring Nash Glucose [Mass/Vol] 226 mg/dL Critically high 74-106 [facility] Comment on above: Performed By: #### P OCGLUC #### [facility] [address] [address] [address] Spring Nash PROF 14(COMP METB)on 023 Albumin [Mass/Vol] 2.5 g/dL Critically low 3.4-5.0 [facility] Comment on above: Performed By: #### P OCGLUC #### [facility] [address] [place] [address] Dr. Spring Nash Albumin/Globulin [Mass ratio] 0.8 {ratio} Normal [facility] Comment on above: Performed By: #### P OCGLUC #### [facility] [address] [address] [address] Spring Ns[place] ALP [Catalytic activity/Vol] 114 U/L Normal 46-116 [facility] Comment on above: Performed By: #### P OCGLUC #### [facility] [address] [place] [address] Dr. Spring Nash ALT [Catalytic activity/Vol] 15 U/L Critically low 16-63 [facility] Comment on above: Performed By: #### P OCGLUC #### [facility] [address] [place] [address] Dr. Spring Nash Anion gap [Moles/Vol] 12.2 mmol/L Normal [facility] Comment on above: Performed By: #### P OCGLUC #### [facility] [address] [place] [address] Dr. Spring Nash AST [Catalytic activity/Vol] 14 U/L Critically low 15-37 [facility] Comment on above: Performed By: #### P OCGLUC #### [facility] [address] [place] [address] Dr. Spring Nash Bilirubin [Mass/Vol] 0.3 mg/dL Normal 0.2-1.0 [facility] Comment on above: Performed By: #### P OCGLUC #### [facility] [address] [place] [address] Dr. Spring Nash Calcium [Mass/Vol] 8.4 mg/dL Critically low 8.5-10.1 [facility] Comment on above: Performed By: #### P OCGLUC #### [facility] [address] [address] [address] Spring Nash Chloride [Moles/Vol] 106 mmol/L Normal 98-107 [facility] Comment on above: Performed By: #### P OCGLUC #### [facility] [address] [place] [address] [address] Spring Nash CO2 [Moles/Vol] 27.3 mmol/L Normal 21.0-32.0 [facility] Comment on above: Performed By: #### P OCGLUC #### [facility] [address] [place] [address] [address] Spring Nash Creatinine [Mass/Vol] 3.20 mg/dL Critically high 0.70-1.30 [facility] Comment on above: Performed By: #### P OCGLUC #### [facility] [address] [place] [address] [address] Spring Nash EGFR-AF PARAGUAYAN 25 mL/min/1.73m2 Critically low >=60 [facility] Comment on above: Performed By: #### P OCGLUC #### [facility] [address] [place] [address] [address] Spring Nash EGFR-NON AF PARAGUAYAN 21 mL/min/1.73m2 Critically low >=60 [facility] Comment on above: Performed By: #### P OCGLUC #### [facility] [address] [place] [address] [address] Spring Nash Globulin (S) [Mass/Vol] 3.1 g/dL Normal [facility] Comment on above: Performed By: #### P OCGLUC #### [facility] [address] [place] [address] [address] Spring Nash Glucose [Mass/Vol] 207 mg/dL Critically high 74-106 [facility] Comment on above: Performed By: #### P OCGLUC #### [facility] [address] [place] [address] [address] Spring Nash Potassium [Moles/Vol] 4.5 mmol/L Normal 3.5-5.1 [facility] Comment on above: Performed By: #### P OCGLUC #### [facility] [address] [place] [address] [address] Spring Nash Protein [Mass/Vol] 5.6 g/dL Critically low 6.4-8.2 [facility] Comment on above: Performed By: #### P OCGLUC #### [facility] [address] [place] [address] [address] Spring Nash Sodium [Moles/Vol] 141 mmol/L Normal 136-145 [facility] Comment on above: Performed By: #### P OCGLUC #### [facility] [address] [place] [address] [address] Spring Nash Urea nitrogen [Mass/Vol] 52.0 mg/dL Critically high 7.0-18.0 [facility] Comment on above: Performed By: #### P OCGLUC #### [facility] [address] [place] [address] Dr. Spring Nash Urea nitrogen/Creatinine [Mass ratio] 16.2 mg/mg Normal [facility] Comment on above: Performed By: #### P OCGLUC #### [facility] [address] [place] [address] Dr. Spring Nash BNPon 03-07-2023 Natriuretic peptide B (Bld) [Mass/Vol] 4010.0 pg/mL Critically high <=900.0 [facility] Comment on above: Performed By: #### C MP #### [facility] [address] [place] [address] Dr. Spring Nash CBC AUTO DIFFon 03-07-2023 BASO # 0.0 103/ul Normal 0.0-0.1 [facility] Comment on above: Performed By: #### P OCGLUC #### [facility] [address] [place] [address] Dr. Spring Nash Basophils/100 WBC (Bld) 0.3 % Normal 0.2-2.0 [facility] Comment on above: Performed By: #### P OCGLUC #### [facility] [address] [address] [address] Spring Nash EO # 0.3 103/ul Normal 0.0-0.7 [facility] Comment on above: Performed By: #### P OCGLUC #### [facility] [address] [place] [address] Dr. Spring Nash Eosinophils/100 WBC (Bld) 5.2 % Normal 0.9-7.0 [facility] Comment on above: Performed By: #### P OCGLUC #### [facility] [address] [place] [address] Dr. Spring Nash Erythrocyte distribution width (RBC) [Ratio] 15.7 % Critically high 11.0-15.0 [facility] Comment on above: Performed By: #### P OCGLUC #### [facility] [address] [place] [address] Dr. Spring Nash Hematocrit (Bld) [Volume fraction] 31.0 % Critically low 42.0-54.0 [facility] Comment on above: Performed By: #### P OCGLUC #### [facility] [address] [place] [address] Dr. Spring Nash Hemoglobin (Bld) [Mass/Vol] 9.6 g/dL Critically low 14.0-18.0 [facility] Comment on above: Performed By: #### P OCGLUC #### [facility] [address] [place] [address] Dr. Spring Nash IG # 0.03 10e3/ul Normal 0.00-0.03 [facility] Comment on above: Performed By: #### P OCGLUC #### [facility] [address] [place] [address] Dr. Spring Nash IG % 0.5 % Normal 0.0-0.5 [facility] Comment on above: Performed By: #### P OCGLUC #### [facility] [address] [place] [address] Dr. Spring Nash LYMPH # 0.8 103/ul Critically low 1.2-3.8 [facility] Comment on above: Performed By: #### P OCGLUC #### [facility] [address] [place] [address] Dr. Spring Nash Lymphocytes/100 WBC (Bld) 11.8 % Critically low 20.5-60.0 [facility] Comment on above: Performed By: #### P OCGLUC #### [facility] [address] [place] [address] Dr. Spring Nash MANUAL DIFF REQ NO Normal [facility] Comment on above: Performed By: #### P OCGLUC #### [facility] [address] [place] [address] Dr. Spring Nash MCH (RBC) [Entitic mass] 29.1 pg Normal 25.9-34.0 [facility] Comment on above: Performed By: #### P OCGLUC #### [facility] [address] [place] [address] Dr. Spring Nash MCHC (RBC) [Mass/Vol] 31.0 g/dL Normal 29.9-35.2 [facility] Comment on above: Performed By: #### P OCGLUC #### [facility] [address] [place] [address] Dr. Spring Nash MCV (RBC) [Entitic vol] 93.9 fL Normal 80.0-94.0 [facility] Comment on above: Performed By: #### P OCGLUC #### [facility] [address] [place] [address] Dr. Spring Nash MONO # 0.5 103/ul Normal 0.3-0.8 [facility] Comment on above: Performed By: #### P OCGLUC #### [facility] [address] [place] [address] Dr. Spring Nash Monocytes/100 WBC (Bld) 7.4 % Normal 1.7-12.0 [facility] Comment on above: Performed By: #### P OCGLUC #### [facility] [address] [place] [address] Dr. Spring Nash NEUT # 4.9 103/ul Normal 1.4-6.5 [facility] Comment on above: Performed By: #### P OCGLUC #### [facility] [address] [place] [address] Dr. Spring Nash Neutrophils/100 WBC (Bld) 74.8 % Normal 43.0-75.0 [facility] Comment on above: Performed By: #### P OCGLUC #### [facility] [address] [place] [address] Dr. Spring Nash Platelet mean volume (Bld) [Entitic vol] 11.7 fL Normal 9.5-13.5 [facility] Comment on above: Performed By: #### P OCGLUC #### [facility] [address] [address] [address] Spring Nash PLT 195 103/ul Normal 150-450 [facility] Comment on above: Performed By: #### P OCGLUC #### [facility] [address] [place] [address] Dr. Spring Nash RBC 3.30 106/ul Critically low 4.70-6.10 [facility] Comment on above: Performed By: #### P OCGLUC #### [facility] [address] [place] [address] Dr. Spring Nash WBC 6.6 103/ul Normal 4.0-11.0 [facility] Comment on above: Performed By: #### P OCGLUC #### [facility] [address] [place] [address] Dr. Spring Nash CHLORIDE URINE RANDOMon 02-12 Chloride, Urine 106 mmol/L Normal Not Estab. [facility] Comment on above: Performed By: #### P OCGLUC #### [facility] [address] [place] [address] Dr. Spring Nash POINT OF CARE GLUCOSEon 02-12 Glucose [Mass/Vol] 238 mg/dL Critically high 74-106 [facility] Comment on above: Performed By: #### C MP HSTROPN, BNP #### [facility] [address] [place] [address] Dr. Spring Nash Glucose [Mass/Vol] 215 mg/dL Critically high 74-106 [facility] Comment on above: Performed By: #### C MEHREEN HSTROPN, BNP #### [facility] [address] [place] [address] Dr. Spring Nash Glucose [Mass/Vol] 181 mg/dL Critically high 74-106 [facility] Comment on above: Performed By: #### C MP, HSTROPN, BNP #### [facility] [address] [place] [address] Dr. Spring Nash PROF 14(COMP METB)on 023 Albumin [Mass/Vol] 2.4 g/dL Critically low 3.4-5.0 [facility] Comment on above: Performed By: #### C MP #### [facility] [address] [place] [address] Dr. Spring Nash Albumin/Globulin [Mass ratio] 0.7 {ratio} Normal [facility] Comment on above: Performed By: #### C MP #### [facility] [address] [place] [address] Dr. Spring Nash ALP [Catalytic activity/Vol] 102 U/L Normal 46-116 [facility] Comment on above: Performed By: #### C MP #### [facility] [address] [place] [address] Dr. Spring Nash ALT [Catalytic activity/Vol] 18 U/L Normal 16-63 [facility] Comment on above: Performed By: #### C MP #### [facility] [address] [place] [address] Dr. Spring Nash Anion gap [Moles/Vol] 13.1 mmol/L Normal [facility] Comment on above: Performed By: #### C MP #### [facility] [address] [place] [address] Dr. Spring Nash AST [Catalytic activity/Vol] 13 U/L Critically low 15-37 [facility] Comment on above: Performed By: #### C MP #### [facility] [address] [place] [address] Dr. Spring Nash Bilirubin [Mass/Vol] 0.3 mg/dL Normal 0.2-1.0 [facility] Comment on above: Performed By: #### C MP #### [facility] [address] [place] [address] Dr. Spring Nash Calcium [Mass/Vol] 8.1 mg/dL Critically low 8.5-10.1 [facility] Comment on above: Performed By: #### C MP #### [facility] [address] [address] [address] Spring Nash Chloride [Moles/Vol] 108 mmol/L Critically high 98-107 [facility] Comment on above: Performed By: #### C MP #### [facility] [address] [address] [address] Spring Nash CO2 [Moles/Vol] 24.8 mmol/L Normal 21.0-32.0 [facility] Comment on above: Performed By: #### C MP #### [facility] [address] [place] [address] Dr. Spring Nash Creatinine [Mass/Vol] 3.39 mg/dL Critically high 0.70-1.30 [facility] Comment on above: Performed By: #### C MP #### [facility] [address] [place] [address] Dr. Spring Nash EGFR-AF PARAGUAYAN 23 mL/min/1.73m2 Critically low >=60 [facility] Comment on above: Performed By: #### C MP #### [facility] [address] [place] [address] Dr. Spring Nash EGFR-NON AF PARAGUAYAN 19 mL/min/1.73m2 Critically low >=60 [facility] Comment on above: Performed By: #### C MP #### [facility] [address] [place] [address] Dr. Spring Nash Globulin (S) [Mass/Vol] 3.4 g/dL Normal [facility] Comment on above: Performed By: #### C MP #### [facility] [address] [address] [address] Spring Nash Glucose [Mass/Vol] 101 mg/dL Normal 74-106 [facility] Comment on above: Performed By: #### C MP #### [facility] [address] [place] [address] Dr. Spring Nash Potassium [Moles/Vol] 4.9 mmol/L Normal 3.5-5.1 [facility] Comment on above: Performed By: #### C MP #### [facility] [address] [place] [address] Dr. Spring Nash Protein [Mass/Vol] 5.8 g/dL Critically low 6.4-8.2 Th [facility] Comment on above: Performed By: #### C MP #### [facility] [address] [address] [address] Spring Nash Sodium [Moles/Vol] 141 mmol/L Normal 136-145 [facility] Comment on above: Performed By: #### C MP #### [facility] [address] [place] [address] Dr. Spring Nash Urea nitrogen [Mass/Vol] 53.0 mg/dL Critically high 7.0-18.0 [facility] Comment on above: Performed By: #### C MP #### [facility] [address] [place] [address] Dr. Spring Nash Urea nitrogen/Creatinine [Mass ratio] 15.6 mg/mg Normal [facility] Comment on above: Performed By: #### C MP #### [facility] [address] [place] [address] Dr. Spring Nash BNPon 03-06-2023 Natriuretic peptide B (Bld) [Mass/Vol] 5021.0 pg/mL Critically high <=900.0 [facility] Comment on above: Performed By: #### B MP #### [facility] [address] [place] [address] Dr. Spring Nash CALCIUM URINEon 03-06-2023 UR CALCIUM <5.0 Critically low 5.1-21.0 [facility] Comment on above: Performed By: #### P OCGLUC #### [facility] [address] [place] [address] Dr. Spring Nash CBC AUTO DIFFon 03-06-2023 BASO # 0.0 103/ul Normal 0.0-0.1 [facility] Comment on above: Performed By: #### P OCGLUC #### [facility] [address] [address] [address] Spring Nash Basophils/100 WBC (Bld) 0.3 % Normal 0.2-2.0 [facility] Comment on above: Performed By: #### P OCGLUC #### [facility] [address] [address] [address] Spring Nash EO # 0.4 103/ul Normal 0.0-0.7 [facility] Comment on above: Performed By: #### P OCGLUC #### [facility] [address] [address] [address] Spring Nash Eosinophils/100 WBC (Bld) 5.6 % Normal 0.9-7.0 [facility] Comment on above: Performed By: #### P OCGLUC #### [facility] [address] [place] [address] Dr. Spring Nash Erythrocyte distribution width (RBC) [Ratio] 15.6 % Critically high 11.0-15.0 [facility] Comment on above: Performed By: #### P OCGLUC #### [facility] [address] [address] [address] Spring Nash Hematocrit (Bld) [Volume fraction] 30.7 % Critically low 42.0-54.0 [facility] Comment on above: Performed By: #### P OCGLUC #### [facility] [address] [place] [address] Dr. Spring Nash Hemoglobin (Bld) [Mass/Vol] 9.4 g/dL Critically low 14.0-18.0 [facility] Comment on above: Performed By: #### P OCGLUC #### [facility] [address] [address] [address] Spring Nash IG # 0.04 10e3/ul Critically high 0.00-0.03 [facility] Comment on above: Performed By: #### P OCGLUC #### [facility] [address] [address] [address] Spring Nash IG % 0.6 % Critically high 0.0-0.5 [facility] Comment on above: Performed By: #### P OCGLUC #### [facility] [address] [address] [address] Spring Nash LYMPH # 0.7 103/ul Critically low 1.2-3.8 [facility] Comment on above: Performed By: #### P OCGLUC #### [facility] [address] [address] [address] Spring Nash Lymphocytes/100 WBC (Bld) 10.7 % Critically low 20.5-60.0 [facility] Comment on above: Performed By: #### P OCGLUC #### [facility] [address] [address] [address] Spring Nash MANUAL DIFF REQ NO Normal [facility] Comment on above: Performed By: #### P OCGLUC #### [facility] [address] [address] [address] Spring Nash MCH (RBC) [Entitic mass] 29.5 pg Normal 25.9-34.0 [facility] Comment on above: Performed By: #### P OCGLUC #### [facility] [address] [address] [address] Spring Nash MCHC (RBC) [Mass/Vol] 30.6 g/dL Normal 29.9-35.2 [facility] Comment on above: Performed By: #### P OCGLUC #### [facility] [address] [address] [address] Spring Nash MCV (RBC) [Entitic vol] 96.2 fL Critically high 80.0-94 .0 [facility] Comment on above: Performed By: #### P OCGLUC #### [facility] [address] [address] [address] Spring Nash MONO # 0.6 103/ul Normal 0.3-0.8 [facility] Comment on above: Performed By: #### P OCGLUC #### [facility] [address] [address] [address] Spring Nash Monocytes/100 WBC (Bld) 8.2 % Normal 1.7-12.0 [facility] Comment on above: Performed By: #### P OCGLUC #### [facility] [address] [address] [address] Spring Nash NEUT # 5.1 103/ul Normal 1.4-6.5 [facility] Comment on above: Performed By: #### P OCGLUC #### [facility] [address] [address] [address] Spring Nash Neutrophils/100 WBC (Bld) 74.6 % Normal 43.0-75.0 [facility] Comment on above: Performed By: #### P OCGLUC #### [facility] [address] [address] [address] Spring Nash Platelet mean volume (Bld) [Entitic vol] 11.6 fL Normal 9.5-13.5 [facility] Comment on above: Performed By: #### P OCGLUC #### [facility] [address] [address] [address] Spring Nash PLT 176 103/ul Normal 150-450 [facility] Comment on above: Performed By: #### P OCGLUC #### [facility] [address] [address] [address] Spring Nash RBC 3.19 106/ul Critically low 4.70-6.10 [facility] Comment on above: Performed By: #### P OCGLUC #### [facility] [address] [address] [address] Spring Nash WBC 6.8 103/ul Normal 4.0-11.0 [facility] Comment on above: Performed By: #### P OCGLUC #### [facility] [address] [address] [address] Spring Nash CREATININE URINEon 3 URINE CREAT 20.22 mg/dL Normal 20.00-300. 00 [facility] Comment on above: Performed By: #### C MP, HSTROPN, BNP #### [facility] [address] [address] [address] Spring Nash ECHO LIMITED STUDYon 023 ECHO LIMITED STUDY Patient: MELVI MINOR Exam Date: 03/06/2023 : 1970 Gender:M Ordering : TONY BARKSDALE Admission #: [id number] Family : SHAIKH Lana MORSE . Order #: [id number] CLICK HERE TO VIEW EXAM ECHOCARDIOGRAM REPORT [...] Left Atrium LA Volume Index (2D A2C): 160274 mm3 Left Atrium Systolic Dimension: 4.20 cm Mitral Valve Right Ventricle Aorta AO Root Diam: 3.10 cm Aortic Valve Tricuspid Valve Pulmonic Valve Right Atrium Dictated by: Jason Lord M.D. on 03/06/2023 at 16:49 Approved by: Jason Lord M.D. on 03/06/2023 at 16:54 Normal [facility] POINT OF CARE GLUCOSEon 02-12 Glucose [Mass/Vol] 372 mg/dL Critically high 74-106 [facility] Comment on above: Performed By: #### P OCGLUC #### [facility] [address] [address] [address] Spring Nash Glucose [Mass/Vol] 183 mg/dL Critically high 74-106 [facility] Comment on above: Performed By: #### P OCGLUC #### [facility] [address] [address] [address] Spring Nash Glucose [Mass/Vol] 118 mg/dL Critically high 74-106 [facility] Comment on above: Performed By: #### P OCGLUC #### [facility] [address] [address] [address] Spring Nash Glucose [Mass/Vol] 145 mg/dL Critically high 74-106 [facility] Comment on above: Performed By: #### P OCGLUC #### [facility] [address] [address] [address] Spring Nash POTASSIUM URINEon 03-06-2023 UR POTASSIUM 17.2 mmol/L Normal [facility] Comment on above: Performed By: #### C MP, HSTROPN, BNP #### [facility] [address] [address] [address] Spring Nash PROF 14(COMP METB)on 023 Albumin [Mass/Vol] 2.3 g/dL Critically low 3.4-5.0 [facility] Comment on above: Performed By: #### B MP #### [facility] [address] [address] [address] Spring Nash Albumin/Globulin [Mass ratio] 0.7 {ratio} [facility] Comment on above: Performed By: #### B MP #### [facility] [address] [address] [address] Spring Nash ALP [Catalytic activity/Vol] 121 U/L Critically high 46-116 [facility] Comment on above: Performed By: #### B MP #### [facility] [address] [address] [address] Spring Nash ALT [Catalytic activity/Vol] 14 U/L Critically low 16-63 [facility] Comment on above: Performed By: #### B MP #### [facility] [address] [address] [address] Spring Nash Anion gap [Moles/Vol] 14.2 mmol/L Normal [facility] Comment on above: Performed By: #### B MP #### [facility] [address] [address] [address] Spring Nash AST [Catalytic activity/Vol] 13 U/L Critically low 15-37 [facility] Comment on above: Performed By: #### B MP #### [facility] [address] [address] [address] Spring Nash Bilirubin [Mass/Vol] 0.3 mg/dL Normal 0.2-1.0 [facility] Comment on above: Performed By: #### B MP #### [facility] [address] [address] [address] Spring Nash Calcium [Mass/Vol] 8.0 mg/dL Critically low 8.5-10.1 [facility] Comment on above: Performed By: #### B MP #### [facility] [address] [address] [address] Spring Nash CO2 [Moles/Vol] 22.5 mmol/L Normal 21.0-32.0 [facility] Comment on above: Performed By: #### B MP #### [facility] [address] [address] [address] Spring Nash Creatinine [Mass/Vol] 3.48 mg/dL Critically high 0.70-1.30 [facility] Comment on above: Performed By: #### B MP #### [facility] [address] [address] [address] Spring Nash EGFR-AF PARAGUAYAN 23 mL/min/1.73m2 Critically low >=60 [facility] Comment on above: Performed By: #### B MP #### [facility] [address] [address] [address] Spring Nash EGFR-NON AF PARAGUAYAN 19 mL/min/1.73m2 Critically low >=60 [facility] Comment on above: Performed By: #### B MP #### [facility] [address] [address] [address] Spring Nash Globulin (S) [Mass/Vol] 3.1 g/dL Normal [facility] Comment on above: Performed By: #### B MP #### [facility] [address] [address] [address] Spring Nash Glucose [Mass/Vol] 170 mg/dL Critically high 74-106 [facility] Comment on above: Performed By: #### B MP #### [facility] [address] [address] [address] Spring Nash Potassium [Moles/Vol] 4.7 mmol/L Normal 3.5-5.1 [facility] Comment on above: Performed By: #### B MP #### [facility] [address] [address] [address] Spring Nash Protein [Mass/Vol] 5.4 g/dL Critically low 6.4-8.2 [facility] Comment on above: Performed By: #### B MP #### [facility] [address] [address] [address] Spring Nash Urea nitrogen [Mass/Vol] 50.0 mg/dL Critically high 7.0-18.0 [facility] Comment on above: Performed By: #### B MP #### [facility] [address] [address] [address] Spring Nash Urea nitrogen/Creatinine [Mass ratio] 14.4 mg/mg Normal [facility] Comment on above: Performed By: #### B MP #### [facility] [address] [address] [address] Srping Nash PROF CHEM 8 (BAS METB)on Anion gap [Moles/Vol] 13.5 mmol/L Normal [facility] Comment on above: Performed By: #### B MP #### [facility] [address] [address] [address] Spring Nash Calcium [Mass/Vol] 7.8 mg/dL Critically low 8.5-10.1 [facility] Comment on above: Performed By: #### B MP #### [facility] [address] [address] [address] Spring Nash Chloride [Moles/Vol] 107 mmol/L Normal 98-107 [facility] Comment on above: Performed By: #### B MP #### [facility] [address] [address] [address] Spring Nash CO2 [Moles/Vol] 23.6 mmol/L Normal 21.0-32.0 [facility] Comment on above: Performed By: #### B MP #### [facility] [address] [address] [address] Spring Nash Creatinine [Mass/Vol] 3.60 mg/dL Critically high 0.70-1.30 [facility] Comment on above: Performed By: #### B MP #### [facility] [address] [address] [address] Spring Nash EGFR-AF PARAGUAYAN 22 mL/min/1.73m2 Critically low >=60 [facility] Comment on above: Performed By: #### B MP #### [facility] [address] [address] [address] Spring Nash EGFR-NON AF PARAGUAYAN 18 mL/min/1.73m2 Critically low >=60 [facility] Comment on above: Performed By: #### B MP #### [facility] [address] [address] [address] Spring Nash Glucose [Mass/Vol] 175 mg/dL Critically high 74-106 [facility] Comment on above: Performed By: #### B MP #### [facility] [address] [address] [address] Spring Nash Potassium [Moles/Vol] 5.1 mmol/L Normal 3.5-5.1 [facility] Comment on above: Performed By: #### B MP #### [facility] [address] [address] [address] Spring Nash Sodium [Moles/Vol] 139 mmol/L Normal 136-145 [facility] Comment on above: Performed By: #### B MP #### [facility] [address] [address] [address] Spring Nash Urea nitrogen [Mass/Vol] 48.0 mg/dL Critically high 7.0-18.0 [facility] Comment on above: Performed By: #### B MP #### [facility] [address] [address] [address] Spring Nash Urea nitrogen/Creatinine [Mass ratio] 13.3 mg/mg Normal [facility] Comment on above: Performed By: #### B MP #### [facility] [address] [address] [address] Spring Nash SODIUM RANDOM URINEon 2022 Sodium (U) [Moles/Vol] 106 mmol/L Critically high 30-90 [facility] Comment on above: Performed By: #### C MP, HSTROPN, BNP #### [facility] [address] [address] [address] Spring Nash VANCOMYCIN TROUGHon 03-06-20 VANCOMYCIN TROUGH 8.1 ug/ml Normal 5.0-20.0 [facility] Comment on above: Performed By: #### C MP #### [facility] [address] [place] [address] Dr. Spring Nash XR CHEST 2 Von [...] by: SAMANTHA MURPHY Date: 2023-03-06 12:19 Normal [facility] BNPon 03-05-2023 Natriuretic peptide B (Bld) [Mass/Vol] 5356.0 pg/mL Critically high <=900.0 [facility] Comment on above: Performed By: #### P OCGLUC #### [facility] [address] [place] [address] Dr. Spring Nash CBC AUTO DIFFon 03-05-2023 BASO # 0.0 103/ul Normal 0.0-0.1 [facility] Comment on above: Performed By: #### P OCGLUC #### [facility] [address] [place] [address] Dr. Spring Nash Basophils/100 WBC (Bld) 0.3 % Normal 0.2-2.0 [facility] Comment on above: Performed By: #### P OCGLUC #### [facility] [address] [place] [address] Dr. Spring Nash EO # 0.4 103/ul Normal 0.0-0.7 [facility] Comment on above: Performed By: #### P OCGLUC #### [facility] [address] [place] [address] Dr. Spring Nash Eosinophils/100 WBC (Bld) 5.7 % Normal 0.9-7.0 [facility] Comment on above: Performed By: #### P OCGLUC #### [facility] [address] [place] [address] Dr. Spring Nash Erythrocyte distribution width (RBC) [Ratio] 15.6 % Critically high 11.0-15.0 [facility] Comment on above: Performed By: #### P OCGLUC #### [facility] [address] [place] [address] Dr. Spring Nash Hematocrit (Bld) [Volume fraction] 28.9 % Critically low 42.0-54.0 [facility] Comment on above: Performed By: #### P OCGLUC #### [facility] [address] [place] [address] Dr. Spring Nash Hemoglobin (Bld) [Mass/Vol] 9.4 g/dL Critically low 14.0-18.0 [facility] Comment on above: Performed By: #### P OCGLUC #### [facility] [address] [place] [address] Dr. Spring Nash IG # 0.03 10e3/ul Normal 0.00-0.03 [facility] Comment on above: Performed By: #### P OCGLUC #### [facility] [address] [place] [address] Dr. Spring Nash IG % 0.4 % Normal 0.0-0.5 [facility] Comment on above: Performed By: #### P OCGLUC #### [facility] [address] [place] [address] Dr. Spring Nash LYMPH # 0.9 103/ul Critically low 1.2-3.8 [facility] Comment on above: Performed By: #### P OCGLUC #### [facility] [address] [place] [address] Dr. Spring Nash Lymphocytes/100 WBC (Bld) 11.5 % Critically low 20.5-60.0 [facility] Comment on above: Performed By: #### P OCGLUC #### [facility] [address] [place] [address] Dr. Spring Nash MANUAL DIFF REQ NO Normal [facility] Comment on above: Performed By: #### P OCGLUC #### [facility] [address] [place] [address] Dr. Spring Nash MCH (RBC) [Entitic mass] 29.8 pg Normal 25.9-34.0 [facility] Comment on above: Performed By: #### P OCGLUC #### [facility] [address] [address] [address] Spring Nash MCHC (RBC) [Mass/Vol] 32.5 g/dL Normal 29.9-35.2 [facility] Comment on above: Performed By: #### P OCGLUC #### [facility] [address] [place] [address] Dr. Spring Nash MCV (RBC) [Entitic vol] 91.7 fL Normal 80.0-94.0 [facility] Comment on above: Performed By: #### P OCGLUC #### [facility] [address] [place] [address] Dr. Spring Nash MONO # 0.7 103/ul Normal 0.3-0.8 [facility] Comment on above: Performed By: #### P OCGLUC #### [facility] [address] [place] [address] Dr. Spring Nash Monocytes/100 WBC (Bld) 8.9 % Normal 1.7-12.0 [facility] Comment on above: Performed By: #### P OCGLUC #### [facility] [address] [place] [address] Dr. Spring Nash NEUT # 5.6 103/ul Normal 1.4-6.5 [facility] Comment on above: Performed By: #### P OCGLUC #### [facility] [address] [place] [address] Dr. Spring Nash Neutrophils/100 WBC (Bld) 73.2 % Normal 43.0-75.0 [facility] Comment on above: Performed By: #### P OCGLUC #### [facility] [address] [place] [address] Dr. Spring Nash Platelet mean volume (Bld) [Entitic vol] 11.8 fL Normal 9.5-13.5 [facility] Comment on above: Performed By: #### P OCGLUC #### [facility] [address] [place] [address] Dr. Spring Nash PLT 176 103/ul Normal 150-450 [facility] Comment on above: Performed By: #### P OCGLUC #### [facility] [address] [place] [address] Dr. Spring Nash RBC 3.15 106/ul Critically low 4.70-6.10 [facility] Comment on above: Performed By: #### P OCGLUC #### [facility] [address] [place] [address] Dr. Spring Nash WBC 7.6 103/ul Normal 4.0-11.0 [facility] Comment on above: Performed By: #### P OCGLUC #### [facility] [address] [address] [address] Spring Nash POINT OF CARE GLUCOSEon 02-12 Glucose [Mass/Vol] 272 mg/dL Critically high 74-106 [facility] Comment on above: Performed By: #### C MP, HSTROPN, BNP #### [facility] [address] [address] [address] Spring Nash Glucose [Mass/Vol] 179 mg/dL Critically high 74-106 [facility] Comment on above: Performed By: #### P OCGLUC #### [facility] [address] [place] [address] Dr. Spring Nash Glucose [Mass/Vol] 136 mg/dL Critically high 74-106 [facility] Comment on above: Performed By: #### P OCGLUC #### [facility] [address] [place] [address] Dr. Spring Nash PROF 14(COMP METB)on 023 Albumin [Mass/Vol] 2.3 g/dL Critically low 3.4-5.0 [facility] Comment on above: Performed By: #### P OCGLUC #### [facility] [address] [place] [address] Dr. Spring Nash Albumin/Globulin [Mass ratio] 0.8 {ratio} Normal [facility] Comment on above: Performed By: #### P OCGLUC #### [facility] [address] [place] [address] Dr. Spring Nash ALP [Catalytic activity/Vol] 116 U/L Normal 46-116 [facility] Comment on above: Performed By: #### P OCGLUC #### [facility] [address] [place] [address] Dr. Spring Nash ALT [Catalytic activity/Vol] 15 U/L Critically low 16-63 [facility] Comment on above: Performed By: #### P OCGLUC #### [facility] [address] [place] [address] Dr. Spring Nash Anion gap [Moles/Vol] 14.0 mmol/L Normal [facility] Comment on above: Performed By: #### P OCGLUC #### [facility] [address] [address] [address] Spring Nash AST [Catalytic activity/Vol] 15 U/L Normal 15-37 [facility] Comment on above: Performed By: #### P OCGLUC #### [facility] [address] [address] [address] Spring Nash Bilirubin [Mass/Vol] 0.2 mg/dL Normal 0.2-1.0 [facility] Comment on above: Performed By: #### P OCGLUC #### [facility] [address] [place] [address] Dr. Spring Nash Calcium [Mass/Vol] 8.0 mg/dL Critically low 8.5-10.1 [facility] Comment on above: Performed By: #### P OCGLUC #### [facility] [address] [place] [address] Dr. Spring Nash Chloride [Moles/Vol] 108 mmol/L Critically high 98-107 [facility] Comment on above: Performed By: #### P OCGLUC #### [facility] [address] [place] [address] Dr. Spring Nash CO2 [Moles/Vol] 22.2 mmol/L Normal 21.0-32.0 [facility] Comment on above: Performed By: #### P OCGLUC #### [facility] [address] [place] [address] Dr. Spring Nash Creatinine [Mass/Vol] 3.06 mg/dL Critically high 0.70-1.30 [facility] Comment on above: Performed By: #### P OCGLUC #### [facility] [address] [place] [address] Dr. Spring Nash EGFR-AF PARAGUAYAN 26 mL/min/1.73m2 Critically low >=60 [facility] Comment on above: Performed By: #### P OCGLUC #### [facility] [address] [place] [address] Dr. Spring Nash EGFR-NON AF PARAGUAYAN 22 mL/min/1.73m2 Critically low >=60 [facility] Comment on above: Performed By: #### P OCGLUC #### [facility] [address] [address] [address] Spring Nash Globulin (S) [Mass/Vol] 3.0 g/dL Normal [facility] Comment on above: Performed By: #### P OCGLUC #### [facility] [address] [address] [address] Spring Nash Glucose [Mass/Vol] 142 mg/dL Critically high 74-106 [facility] Comment on above: Performed By: #### P OCGLUC #### [facility] [address] [address] [address] Spring Nash Potassium [Moles/Vol] 4.2 mmol/L Normal 3.5-5.1 [facility] Comment on above: Performed By: #### P OCGLUC #### [facility] [address] [address] [address] Spring Nash Protein [Mass/Vol] 5.3 g/dL Critically low 6.4-8.2 [facility] Comment on above: Performed By: #### P OCGLUC #### [facility] [address] [place] [address] Dr. Spring Nash Sodium [Moles/Vol] 140 mmol/L Normal 136-145 [facility] Comment on above: Performed By: #### P OCGLUC #### [facility] [address] [address] [address] Spring Nash Urea nitrogen [Mass/Vol] 40.0 mg/dL Critically high 7.0-18.0 [facility] Comment on above: Performed By: #### P OCGLUC #### [facility] [address] [address] [address] Spring Nash Urea nitrogen/Creatinine [Mass ratio] 13.1 mg/mg Normal [facility] Comment on above: Performed By: #### P OCGLUC #### [facility] [address] [address] [address] Spring Nash BNPon 03-04-2023 Natriuretic peptide B (Bld) [Mass/Vol] 8915.0 pg/mL Critically high <=900.0 [facility] Comment on above: Performed By: #### P OCGLUC #### [facility] [address] [place] [address] Dr. Spring Nash CBC AUTO DIFFon 03-04-2023 BASO # 0.0 103/ul Normal 0.0-0.1 [facility] Comment on above: Performed By: #### C MP #### [facility] [address] [place] [address] Dr. Spring Nash Basophils/100 WBC (Bld) 0.2 % Normal 0.2-2.0 [facility] Comment on above: Performed By: #### C MP #### [facility] [address] [place] [address] Dr. Spring Nash EO # 0.4 103/ul Normal 0.0-0.7 [facility] Comment on above: Performed By: #### C MP #### [facility] [address] [place] [address] Dr. Spring Nash Eosinophils/100 WBC (Bld) 5.1 % Normal 0.9-7.0 [facility] Comment on above: Performed By: #### C MP #### [facility] [address] [place] [address] Dr. Spring Nash Erythrocyte distribution width (RBC) [Ratio] 15.7 % Critically high 11.0-15.0 [facility] Comment on above: Performed By: #### C MP #### [facility] [address] [place] [address] Dr. Spring Nash Hematocrit (Bld) [Volume fraction] 29.5 % Critically low 42.0-54.0 [facility] Comment on above: Performed By: #### C MP #### [facility] [address] [place] [address] Dr. Spring Nash Hemoglobin (Bld) [Mass/Vol] 9.2 g/dL Critically low 14.0-18.0 [facility] Comment on above: Performed By: #### C MP #### [facility] [address] [place] [address] Dr. Spring Nash IG # 0.03 10e3/ul Normal 0.00-0.03 [facility] Comment on above: Performed By: #### C MP #### [facility] [address] [place] [address] Dr. Spring Nash IG % 0.4 % Normal 0.0-0.5 [facility] Comment on above: Performed By: #### C MP #### [facility] [address] [place] [address] Dr. Spring Nash LYMPH # 0.9 103/ul Critically low 1.2-3.8 [facility] Comment on above: Performed By: #### C MP #### [facility] [address] [place] [address] Dr. Spring Nash Lymphocytes/100 WBC (Bld) 11.3 % Critically low 20.5-60.0 [facility] Comment on above: Performed By: #### C MP #### [facility] [address] [place] [address] Dr. Spring Nash MANUAL DIFF REQ NO Normal [facility] Comment on above: Performed By: #### C MP #### [facility] [address] [place] [address] Dr. Spring Nash MCH (RBC) [Entitic mass] 29.6 pg Normal 25.9-34.0 [facility] Comment on above: Performed By: #### C MP #### [facility] [address] [place] [address] Dr. Spring Nash MCHC (RBC) [Mass/Vol] 31.2 g/dL Normal 29.9-35.2 [facility] Comment on above: Performed By: #### C MP #### [facility] [address] [place] [address] Dr. Spring Nash MCV (RBC) [Entitic vol] 94.9 fL Critically high 80.0-94 .0 [facility] Comment on above: Performed By: #### C MP #### [facility] [address] [address] [address] Spring Nash MONO # 0.6 103/ul Normal 0.3-0.8 [facility] Comment on above: Performed By: #### C MP #### [facility] [address] [address] [address] Spring Nash Monocytes/100 WBC (Bld) 7.7 % Normal 1.7-12.0 [facility] Comment on above: Performed By: #### C MP #### [facility] [address] [place] [address] Dr. Spring Nash NEUT # 6.2 103/ul Normal 1.4-6.5 [facility] Comment on above: Performed By: #### C MP #### [facility] [address] [place] [address] Dr. Spring Nash Neutrophils/100 WBC (Bld) 75.3 % Critically high 43.0-75.0 [facility] Comment on above: Performed By: #### C MP #### [facility] [address] [place] [address] Dr. Spring Nash Platelet mean volume (Bld) [Entitic vol] 11.8 fL Normal 9.5-13.5 [facility] Comment on above: Performed By: #### C MP #### [facility] [address] [place] [address] Dr. Spring Nash PLT 183 103/ul Normal 150-450 [facility] Comment on above: Performed By: #### C MP #### [facility] [address] [place] [address] Dr. Spring Nash RBC 3.11 106/ul Critically low 4.70-6.10 [facility] Comment on above: Performed By: #### C MP #### [facility] [address] [place] [address] Dr. Spring Nash WBC 8.2 103/ul Normal 4.0-11.0 [facility] Comment on above: Performed By: #### C MP #### [facility] [address] [place] [address] Dr. Spring Nash POINT OF CARE GLUCOSEon 02-12 Glucose [Mass/Vol] 218 mg/dL Critically high 74-106 [facility] Comment on above: Performed By: #### P OCGLUC #### [facility] [address] [address] [address] Spring Nash Glucose [Mass/Vol] 193 mg/dL Critically high 74-106 [facility] Comment on above: Performed By: #### P OCGLUC #### [facility] [address] [address] [address] Spring Nash Glucose [Mass/Vol] 146 mg/dL Critically high -106 [facility] Comment on above: Performed By: #### C MP #### [facility] [address] [address] [address] Spring Nash Glucose [Mass/Vol] 65 mg/dL Critically low 74-106 [facility] Comment on above: Performed By: #### P OCGLUC #### [facility] [address] [address] [address] Spring Nash PROF 14(COMP METB)on 023 Albumin [Mass/Vol] 2.2 g/dL Critically low 3.4-5.0 [facility] Comment on above: Performed By: #### P OCGLUC #### [facility] [address] [address] [address] Spring Nash Albumin/Globulin [Mass ratio] 0.8 {ratio} Normal [facility] Comment on above: Performed By: #### P OCGLUC #### [facility] [address] [address] [address] Spring Nash ALP [Catalytic activity/Vol] 100 U/L Normal 46-116 [facility] Comment on above: Performed By: #### P OCGLUC #### [facility] [address] [address] [address] Spring Nash ALT [Catalytic activity/Vol] 15 U/L Critically low 16-63 [facility] Comment on above: Performed By: #### P OCGLUC #### [facility] [address] [address] [address] Spring Nash Anion gap [Moles/Vol] 13.2 mmol/L Normal [facility] Comment on above: Performed By: #### P OCGLUC #### [facility] [address] [address] [address] Spring Nash AST [Catalytic activity/Vol] 14 U/L Critically low 15-37 [facility] Comment on above: Performed By: #### P OCGLUC #### [facility] [address] [address] [address] Spring Nash Bilirubin [Mass/Vol] 0.3 mg/dL Normal 0.2-1.0 [facility] Comment on above: Performed By: #### P OCGLUC #### [facility] [address] [address] [address] Spring Nash Calcium [Mass/Vol] 8.0 mg/dL Critically low 8.5-10.1 [facility] Comment on above: Performed By: #### P OCGLUC #### [facility] [address] [address] [address] Spring Nash Chloride [Moles/Vol] 109 mmol/L Critically high 98-107 [facility] Comment on above: Performed By: #### P OCGLUC #### [facility] [address] [address] [address] Spring Nash CO2 [Moles/Vol] 24.3 mmol/L Normal 21.0-32.0 [facility] Comment on above: Performed By: #### P OCGLUC #### [facility] [address] [address] [address] Spring Nash Creatinine [Mass/Vol] 2.38 mg/dL Critically high 0.70-1.30 [facility] Comment on above: Performed By: #### P OCGLUC #### [facility] [address] [address] [address] Spring Nash EGFR-AF PARAGUAYAN 35 mL/min/1.73m2 Critically low >=60 [facility] Comment on above: Performed By: #### P OCGLUC #### [facility] [address] [address] [address] Spring Nash EGFR-NON AF PARAGUAYAN 29 mL/min/1.73m2 Critically low >=60 [facility] Comment on above: Performed By: #### P OCGLUC #### [facility] [address] [address] [address] Spring Nash Globulin (S) [Mass/Vol] 2.9 g/dL Normal [facility] Comment on above: Performed By: #### P OCGLUC #### [facility] [address] [address] [address] Spring Nash Glucose [Mass/Vol] 107 mg/dL Critically high 74-106 [facility] Comment on above: Performed By: #### P OCGLUC #### [facility] [address] [address] [address] Spring Nash Potassium [Moles/Vol] 3.5 mmol/L Normal 3.5-5.1 [facility] Comment on above: Performed By: #### P OCGLUC #### [facility] [address] [address] [address] Spring Nash Protein [Mass/Vol] 5.1 g/dL Critically low 6.4-8.2 [facility] Comment on above: Performed By: #### P OCGLUC #### [facility] [address] [address] [address] Spring Nash Sodium [Moles/Vol] 143 mmol/L Normal 136-145 [facility] Comment on above: Performed By: #### P OCGLUC #### [facility] [address] [address] [address] Spring Nash Urea nitrogen [Mass/Vol] 34.0 mg/dL Critically high 7.0-18.0 [facility] Comment on above: Performed By: #### P OCGLUC #### [facility] [address] [address] [address] Spring Nash Urea nitrogen/Creatinine [Mass ratio] 14.3 mg/mg Normal [facility] Comment on above: Performed By: #### P OCGLUC #### [facility] [address] [place] [address] Dr. Spring Nash US KELVIN DOP LEG [...] by: MURRAY YEBOAH Date: 2023-03-04 11:26 Normal [facility] BLOOD GASES BTYon 03-03-2023 02 MODE ROOM AIR Normal [facility] Comment on above: Performed By: #### C MP, HSTROPN, BNP #### [facility] [address] [place] [address] Dr. Spring Nash ALLENS TEST Positive [facility] Comment on above: Performed By: #### C MP, HSTROPN, BNP #### [facility] [address] [address] [address] Spring Nash Base excess Calc (Bld) [Moles/Vol] -2.2000 mmol/L Critically low -2.0-2.0 [facility] Comment on above: Performed By: #### C MP, HSTROPN, BNP #### [facility] [address] [place] [address] Dr. Spring Nash BIPAP PRESSURE Normal [facility] Comment on above: Performed By: #### C MP, HSTROPN, BNP #### [facility] [address] [address] [address] Spring Nash CPAP [facility] Comment on above: Performed By: #### C MP, HSTROPN, BNP #### [facility] [address] [place] [address] Dr. Spring Nash FIO2 Normal [facility] Comment on above: Performed By: #### C MP, HSTROPN, BNP #### [facility] [address] [place] [address] Dr. Spring Nash HCO3 (Bld) [Moles/Vol] 22.8 mmol/L Normal 22.0-26.0 [facility] Comment on above: Performed By: #### C MP, HSTROPN, BNP #### [facility] [address] [place] [address] Dr. Spring Nash LPM [facility] Comment on above: Performed By: #### C MP, HSTROPN, BNP #### [facility] [address] [place] [address] Dr. Spring Nash MINUTE VOLUME Normal [facility] Comment on above: Performed By: #### C MP, HSTROPN, BNP #### [facility] [address] [place] [address] Dr. Spring Nash Oxygen (Bld) [Partial pressure] 86.8 mm[Hg] Normal 80.0-100.0 [facility] Comment on above: Performed By: #### C MP, HSTROPN, BNP #### [facility] [address] [place] [address] Dr. Spring Nash Oxygen saturation in Blood 97.7 % Normal 95.0-100.0 [facility] Comment on above: Performed By: #### C MP, HSTROPN, BNP #### [facility] [address] [place] [address] Dr. Spring Nash PCO2 37.9 mmHg Normal 35.0-45.0 [facility] Comment on above: Performed By: #### C MP, HSTROPN, BNP #### [facility] [address] [place] [address] Dr. Spring Nash PEEP [facility] Comment on above: Performed By: #### C MP, HSTROPN, BNP #### [facility] [address] [place] [address] Dr. Spring Nash pH (Bld) 7.388 [pH] Normal 7.350-7.45 0 [facility] Comment on above: Performed By: #### C MP, HSTROPN, BNP #### [facility] [address] [place] [address] Dr. Spring Nash [facility] Comment on above: Performed By: #### C MP, HSTROPN, BNP #### [facility] [address] [address] [address] Spring Nash [facility] Comment on above: Performed By: #### C MP, HSTROPN, BNP #### [facility] [address] [address] [address] Spring Nash PUNCTURE SITE LR [facility] Comment on above: Performed By: #### C MP, HSTROPN, BNP #### [facility] [address] [address] [address] Spring Nash [facility] Comment on above: Performed By: #### C MP, HSTROPN, BNP #### [facility] [address] [place] [address] Dr. Spring Nash [facility] Comment on above: Performed By: #### C MP, HSTROPN, BNP #### [facility] [address] [place] [address] Dr. Spring Nash [facility] Comment on above: Performed By: #### C MP, HSTROPN, BNP #### [facility] [address] [place] [address] Dr. Spring Nash BNPon 03-03-2023 Natriuretic peptide B (Bld) [Mass/Vol] 62569.0 pg/mL Critically high <=900.0 [facility] Comment on above: Performed By: #### C MP, HSTROPN, BNP #### [facility] [address] [place] [address] Dr. Spring Nash CBC AUTO DIFFon 03-03-2023 BASO # 0.0 103/ul Normal 0.0-0.1 [facility] Comment on above: Performed By: #### C MP #### [facility] [address] [place] [address] Dr. Spring Nash Basophils/100 WBC (Bld) 0.2 % Normal 0.2-2.0 [facility] Comment on above: Performed By: #### C MP #### [facility] [address] [address] [address] Spring Nash EO # 0.4 103/ul Normal 0.0-0.7 [facility] Comment on above: Performed By: #### C MP #### [facility] [address] [address] [address] Spring Nash Eosinophils/100 WBC (Bld) 3.2 % Normal 0.9-7.0 [facility] Comment on above: Performed By: #### C MP #### [facility] [address] [address] [address] Spring Nash Erythrocyte distribution width (RBC) [Ratio] 15.1 % Critically high 11.0-15.0 [facility] Comment on above: Performed By: #### C MP #### [facility] [address] [address] [address] Spring Nash Hematocrit (Bld) [Volume fraction] 33.2 % Critically low 42.0-54.0 [facility] Comment on above: Performed By: #### C MP #### [facility] [address] [address] [address] Spring Nash Hemoglobin (Bld) [Mass/Vol] 10.3 g/dL Critically low 14.0-18.0 [facility] Comment on above: Performed By: #### C MP #### [facility] [address] [address] [address] Spring Nash IG # 0.08 10e3/ul Critically high 0.00-0.03 [facility] Comment on above: Performed By: #### C MP #### [facility] [address] [address] [address] Spring Nash IG % 0.7 % Critically high 0.0-0.5 [facility] Comment on above: Performed By: #### C MP #### [facility] [address] [address] [address] Spring Nash LYMPH # 0.9 103/ul Critically low 1.2-3.8 [facility] Comment on above: Performed By: #### C MP #### [facility] [address] [address] [address] Spring Nash Lymphocytes/100 WBC (Bld) 7.5 % Critically low 20.5-60.0 [facility] Comment on above: Performed By: #### C MP #### [facility] [address] [address] [address] Spring Nash MANUAL DIFF REQ NO Normal [facility] Comment on above: Performed By: #### C MP #### [facility] [address] [address] [address] Spring Nash MCH (RBC) [Entitic mass] 29.2 pg Normal 25.9-34.0 [facility] Comment on above: Performed By: #### C MP #### [facility] [address] [place] [address] Dr. Spring Nash MCHC (RBC) [Mass/Vol] 31.0 g/dL Normal 29.9-35.2 [facility] Comment on above: Performed By: #### C MP #### [facility] [address] [address] [address] Spring Nash MCV (RBC) [Entitic vol] 94.1 fL Critically high 80.0-94 .0 [facility] Comment on above: Performed By: #### C MP #### [facility] [address] [address] [address] Spring Nash MONO # 0.8 103/ul Normal 0.3-0.8 [facility] Comment on above: Performed By: #### C MP #### [facility] [address] [address] [address] Spring Nash Monocytes/100 WBC (Bld) 6.2 % Normal 1.7-12.0 [facility] Comment on above: Performed By: #### C MP #### [facility] [address] [place] [address] Dr. Spring Nash NEUT # 9.9 103/ul Critically high 1.4-6.5 [facility] Comment on above: Performed By: #### C MP #### [facility] [address] [address] [address] Spring Nash Neutrophils/100 WBC (Bld) 82.2 % Critically high 43.0-75.0 [facility] Comment on above: Performed By: #### C MP #### [facility] [address] [address] [address] Spring Nash Platelet mean volume (Bld) [Entitic vol] 11.8 fL Normal 9.5-13.5 [facility] Comment on above: Performed By: #### C MP #### [facility] [address] [address] [address] Spring Nash PLT 196 103/ul Normal 150-450 [facility] Comment on above: Performed By: #### C MP #### [facility] [address] [place] [address] Dr. Spring Nash RBC 3.53 106/ul Critically low 4.70-6.10 [facility] Comment on above: Performed By: #### C MP #### [facility] [address] [address] [address] Spring Nash WBC 12.0 103/ul Critically high 4.0-11.0 [facility] Comment on above: Performed By: #### C MP #### [facility] [address] [address] [address] Spring Nash BASO # 0.0 103/ul Normal 0.0-0.1 [facility] Comment on above: Performed By: #### C MP #### [facility] [address] [address] [address] Spring Nash Basophils/100 WBC (Bld) 0.3 % Normal 0.2-2.0 [facility] Comment on above: Performed By: #### C MP #### [facility] [address] [address] [address] Spring Nash EO # 0.5 103/ul Normal 0.0-0.7 [facility] Comment on above: Performed By: #### C MP #### [facility] [address] [address] [address] Spring Nash Eosinophils/100 WBC (Bld) 3.8 % Normal 0.9-7.0 [facility] Comment on above: Performed By: #### C MP #### [facility] [address] [place] [address] Dr. Spring Nash Erythrocyte distribution width (RBC) [Ratio] 14.9 % Normal 11.0-15.0 [facility] Comment on above: Performed By: #### C MP #### [facility] [address] [place] [address] Dr. Spring Nash Hematocrit (Bld) [Volume fraction] 33.1 % Critically low 42.0-54.0 [facility] Comment on above: Performed By: #### C MP #### [facility] [address] [place] [address] Dr. Spring Nash Hemoglobin (Bld) [Mass/Vol] 10.6 g/dL Critically low 14.0-18.0 [facility] Comment on above: Performed By: #### C MP #### [facility] [address] [place] [address] Dr. Spring Nash IG # 0.07 10e3/ul Critically high 0.00-0.03 [facility] Comment on above: Performed By: #### C MP #### [facility] [address] [place] [address] Dr. Spring Nash IG % 0.6 % Critically high 0.0-0.5 [facility] Comment on above: Performed By: #### C MP #### [facility] [address] [place] [address] Dr. Spring Nash LYMPH # 1.1 103/ul Critically low 1.2-3.8 [facility] Comment on above: Performed By: #### C MP #### [facility] [address] [place] [address] Dr. Spring Nash Lymphocytes/100 WBC (Bld) 9.2 % Critically low 20.5-60.0 [facility] Comment on above: Performed By: #### C MP #### [facility] [address] [place] [address] Dr. Spring Nash MANUAL DIFF REQ NO Normal [facility] Comment on above: Performed By: #### C MP #### [facility] [address] [place] [address] Dr. Spring Nash MCH (RBC) [Entitic mass] 29.7 pg Normal 25.9-34.0 [facility] Comment on above: Performed By: #### C MP #### [facility] [address] [place] [address] Dr. Spring Nash MCHC (RBC) [Mass/Vol] 32.0 g/dL Normal 29.9-35.2 [facility] Comment on above: Performed By: #### C MP #### [facility] [address] [place] [address] Dr. Spring Nash MCV (RBC) [Entitic vol] 92.7 fL Normal 80.0-94.0 [facility] Comment on above: Performed By: #### C MP #### [facility] [address] [place] [address] Dr. Spring Nash MONO # 0.7 103/ul Normal 0.3-0.8 [facility] Comment on above: Performed By: #### C MP #### [facility] [address] [place] [address] Dr. Spring Nash Monocytes/100 WBC (Bld) 6.1 % Normal 1.7-12.0 [facility] Comment on above: Performed By: #### C MP #### [facility] [address] [place] [address] Dr. Spring Nash NEUT # 9.4 103/ul Critically high 1.4-6.5 [facility] Comment on above: Performed By: #### C MP #### [facility] [address] [place] [address] Dr. Spring Nash Neutrophils/100 WBC (Bld) 80.0 % Critically high 43.0-75.0 [facility] Comment on above: Performed By: #### C MP #### [facility] [address] [address] [address] Spring Nash Platelet mean volume (Bld) [Entitic vol] 11.8 fL Normal 9.5-13.5 [facility] Comment on above: Performed By: #### C MP #### [facility] [address] [address] [address] Spring Nash PLT 210 103/ul Normal 150-450 [facility] Comment on above: Performed By: #### C MP #### [facility] [address] [address] [address] Spring Nash RBC 3.57 106/ul Critically low 4.70-6.10 [facility] Comment on above: Performed By: #### C MP #### [facility] [address] [address] [address] Spring Nash WBC 11.7 103/ul Critically high 4.0-11.[address] [facility] Comment on above: Performed By: #### C MP #### [facility] [address] [address] [address] Spring Nash CRPon 03-03-2023 CRP 1.0 mg/dL Normal <=1.0 [facility] Comment on above: Performed By: #### B MP #### [facility] [address] [place] [address] Dr. Spring Nash CTA CHEST WO W [...] LOTTIE NESBITT Date: 2023-03-03 00:50 Normal [facility] D-DIMERon 03-03-2023 D-DIMER 0.67 mg/L FEU Critically high <=0.59 [facility] Comment on above: Performed By: #### P OCGLUC #### [facility] [address] [place] [address] Dr. Spring Nash D-DIMER COMMENTS SEE BELOW Normal [facility] Comment on above: Result Comment: Incr [...] hospitalization. Performed By: #### P OCGLUC #### [facility] [address] [place] [address] Dr. Spring Nash POINT OF CARE GLUCOSEon 02-12 Glucose [Mass/Vol] 233 mg/dL Critically high 74-106 [facility] Comment on above: Performed By: #### P OCGLUC #### [facility] [address] [place] [address] Dr. Spring Nash Glucose [Mass/Vol] 177 mg/dL Critically high 74-106 [facility] Comment on above: Performed By: #### P OCGLUC #### [facility] [address] [place] [address] Dr. Spring Nash Glucose [Mass/Vol] 268 mg/dL Critically high 74-106 [facility] Comment on above: Performed By: #### P OCGLUC #### [facility] [address] [place] [address] Dr. Spring Nash PROF 14(COMP METB)on 023 Albumin [Mass/Vol] 2.6 g/dL Critically low 3.4-5.0 [facility] Comment on above: Performed By: #### C MP, HSTROPN, BNP #### [facility] [address] [place] [address] Dr. Spring Nash Albumin/Globulin [Mass ratio] 0.8 {ratio} Normal [facility] Comment on above: Performed By: #### C MP, HSTROPN, BNP #### [facility] [address] [place] [address] Dr. Spring Nash ALP [Catalytic activity/Vol] 160 U/L Critically high 46-116 [facility] Comment on above: Performed By: #### C MP, HSTROPN, BNP #### [facility] [address] [place] [address] Dr. Spring Nash ALT [Catalytic activity/Vol] 17 U/L Normal 16-63 [facility] Comment on above: Performed By: #### C MP, HSTROPN, BNP #### [facility] [address] [place] [address] Dr. Spring Nash Anion gap [Moles/Vol] 14.8 mmol/L Normal [facility] Comment on above: Performed By: #### C MP, HSTROPN, BNP #### [facility] [address] [place] [address] Dr. Spring Nash AST [Catalytic activity/Vol] 17 U/L Normal 15-37 [facility] Comment on above: Performed By: #### C MP, HSTROPN, BNP #### [facility] [address] [place] [address] Dr. Spring Nash Bilirubin [Mass/Vol] 0.5 mg/dL Normal 0.2-1.0 [facility] Comment on above: Performed By: #### C MP, HSTROPN, BNP #### [facility] [address] [place] [address] Dr. Spring Nash Calcium [Mass/Vol] 8.3 mg/dL Critically low 8.5-10.1 [facility] Comment on above: Performed By: #### C MP, HSTROPN, BNP #### [facility] [address] [place] [address] Dr. Spring Nash Chloride [Moles/Vol] 106 mmol/L Normal 98-107 [facility] Comment on above: Performed By: #### C MP, HSTROPN, BNP #### [facility] [address] [place] [address] Dr. Spring Nash CO2 [Moles/Vol] 21.9 mmol/L Normal 21.0-32.0 [facility] Comment on above: Performed By: #### C MP, HSTROPN, BNP #### [facility] [address] [place] [address] Dr. Spring Nash Creatinine [Mass/Vol] 2.00 mg/dL Critically high 0.70-1.30 [facility] Comment on above: Performed By: #### C MP, HSTROPN, BNP #### [facility] [address] [place] [address] Dr. Spring Nash EGFR-AF PARAGUAYAN 43 mL/min/1.73m2 Critically low >=60 [facility] Comment on above: Performed By: #### C MP, HSTROPN, BNP #### [facility] [address] [place] [address] Dr. Spring Nash EGFR-NON AF PARAGUAYAN 35 mL/min/1.73m2 Critically low >=60 [facility] Comment on above: Performed By: #### C MP, HSTROPN, BNP #### [facility] [address] [place] [address] Dr. Spring Nash Globulin (S) [Mass/Vol] 3.3 g/dL Normal T [facility] Comment on above: Performed By: #### C MP, HSTROPN, BNP #### [facility] [address] [place] [address] Dr. Spring Nash Glucose [Mass/Vol] 306 mg/dL Critically high 74-106 [facility] Comment on above: Performed By: #### C MP, HSTROPN, BNP #### [facility] [address] [place] [address] Dr. Spring Nash Potassium [Moles/Vol] 3.7 mmol/L Normal 3.5-5.1 [facility] Comment on above: Performed By: #### C MP, HSTROPN, BNP #### [facility] [address] [place] [address] Dr. Spring Nash Protein [Mass/Vol] 5.9 g/dL Critically low 6.4-8.2 [facility] Comment on above: Performed By: #### C MP, HSTROPN, BNP #### [facility] [address] [place] [address] Dr. Spring Nash Sodium [Moles/Vol] 139 mmol/L Normal 136-145 [facility] Comment on above: Performed By: #### C MP, HSTROPN, BNP #### [facility] [address] [place] [address] Dr. Spring Nash Urea nitrogen [Mass/Vol] 30.0 mg/dL Critically high 7.0-18.0 [facility] Comment on above: Performed By: #### C MP, HSTROPN, BNP #### [facility] [address] [place] [address] Dr. Spring Nash Urea nitrogen/Creatinine [Mass ratio] 15.0 mg/mg Normal [facility] Comment on above: Performed By: #### C MP, HSTROPN, BNP #### [facility] [address] [place] [address] Dr. Spring Nash Albumin [Mass/Vol] 2.7 g/dL Critically low 3.4-5.0 [facility] Comment on above: Performed By: #### C MP, HSTROPN, BNP #### [facility] [address] [place] [address] Dr. Spring Nash Albumin/Globulin [Mass ratio] 0.8 {ratio} Normal [facility] Comment on above: Performed By: #### C MP, HSTROPN, BNP #### [facility] [address] [place] [address] Dr. Spring Nash ALP [Catalytic activity/Vol] 188 U/L Critically high 46-116 [facility] Comment on above: Performed By: #### C MP, HSTROPN, BNP #### [facility] [address] [place] [address] Dr. Spring Nash ALT [Catalytic activity/Vol] 19 U/L Normal 16-63 [facility] Comment on above: Performed By: #### C MP, HSTROPN, BNP #### [facility] [address] [place] [address] Dr. Spring Nash Anion gap [Moles/Vol] 14.4 mmol/L Normal [facility] Comment on above: Performed By: #### C MP, HSTROPN, BNP #### [facility] [address] [place] [address] Dr. Spring Nash AST [Catalytic activity/Vol] 18 U/L Normal 15-37 [facility] Comment on above: Performed By: #### C MP, HSTROPN, BNP #### [facility] [address] [place] [address] Dr. Spring Nash Bilirubin [Mass/Vol] 0.4 mg/dL Normal 0.2-1.0 [facility] Comment on above: Performed By: #### C MP, HSTROPN, BNP #### [facility] [address] [place] [address] Dr. Spring Nash Calcium [Mass/Vol] 8.3 mg/dL Critically low 8.5-10.1 [facility] Comment on above: Performed By: #### C MP, HSTROPN, BNP #### [facility] [address] [place] [address] Dr. Spring Nash Chloride [Moles/Vol] 106 mmol/L Normal 98-107 [facility] Comment on above: Performed By: #### C MP, HSTROPN, BNP #### [facility] [address] [place] [address] Dr. Spring Nash CO2 [Moles/Vol] 23.7 mmol/L Normal 21.0-32.0 [facility] Comment on above: Performed By: #### C MP, HSTROPN, BNP #### [facility] [address] [place] [address] Dr. Spring Nash Creatinine [Mass/Vol] 2.10 mg/dL Critically high 0.70-1.30 [facility] Comment on above: Performed By: #### C MP, HSTROPN, BNP #### [facility] [address] [place] [address] Dr. Spring Nash EGFR-AF PARAGUAYAN 41 mL/min/1.73m2 Critically low >=60 [facility] Comment on above: Performed By: #### C MP, HSTROPN, BNP #### [facility] [address] [place] [address] Dr. Spring Nash EGFR-NON AF PARAGUAYAN 33 mL/min/1.73m2 Critically low >=60 [facility] Comment on above: Performed By: #### C MP, HSTROPN, BNP #### [facility] [address] [place] [address] Dr. Spring Nash Globulin (S) [Mass/Vol] 3.4 g/dL Normal [facility] Comment on above: Performed By: #### C MP, HSTROPN, BNP #### [facility] [address] [place] [address] Dr. Spring Nash Glucose [Mass/Vol] 343 mg/dL Critically high 74-106 [facility] Comment on above: Performed By: #### C MP, HSTROPN, BNP #### [facility] [address] [place] [address] Dr. Spring Nash Potassium [Moles/Vol] 4.1 mmol/L Normal 3.5-5.1 [facility] Comment on above: Performed By: #### C MP, HSTROPN, BNP #### [facility] [address] [address] [address] Spring Nash Protein [Mass/Vol] 6.1 g/dL Critically low 6.4-8.2 [facility] Comment on above: Performed By: #### C MP, HSTROPN, BNP #### [facility] [address] [address] [address] Spring Nash Sodium [Moles/Vol] 140 mmol/L Normal 136-145 [facility] Comment on above: Performed By: #### C MP, HSTROPN, BNP #### [facility] [address] [address] [address] Spring Nash Urea nitrogen [Mass/Vol] 29.0 mg/dL Critically high 7.0-18.0 [facility] Comment on above: Performed By: #### C MP, HSTROPN, BNP #### [facility] [address] [address] [address] Spring Nash Urea nitrogen/Creatinine [Mass ratio] 13.8 mg/mg Normal [facility] Comment on above: Performed By: #### C MP, HSTROPN, BNP #### [facility] [address] [place] [address] Dr. Spring Nash [facility] mm/hr Critically high <=20 [facility] Comment on above: Performed By: #### C MP, HSTROPN, BNP #### [facility] [address] [place] [address] Dr. Spring Nash TROPONIN, HIGH SENSITIVITYon 03-03-2023 HSTROP 44.7 pg/mL Normal 4.0-76.1 [facility] Comment on above: Result Comment: CUT- OFF POINTS HAVE BEEN ESTABLISHED BASED ON THE FOURTH UNIVERSAL DEFINITIONS OF MYOCARDIAL INFARCTION. THE UPPER REFERENCE LIMIT (URL) OF TROPONIN, DEFINED THE 99TH PERCENTILE OF cTnI DISTRIBUTION IN A REFERENCE POPULATION, HAS BEEN CONFIRMED THE DECISION THRESHOLD FOR SD DIAGNOSIS. Performed By: #### C MP, HSTROPN, BNP #### [facility] [address] [place] [address] Dr. Spring Nash URIC ACID SERUMon 03-03-2023 Urate [Mass/Vol] 7.3 mg/dL Critically high 3.5-7.2 [facility] Comment on above: Performed By: #### B MP #### [facility] [address] [address] [address] Spring Nash Covid-19 PCR ([facility])on 01-13 SARS-CoV-2 (COVID-19) RNA HONEY+probe Ql (Unsp spec) Not detected Normal NOT DETECTED [facility] Comment on above: Result Comment: This test is not yet approved or cleared by the [place] FDA. When there are no FDA-approved or cleared tests available, and other criteria are met, FDA can make tests available under an emergency access mechanism called an Emergency Use Authorization (EUA). The EUA for this test is supported by the [place] of Health and Human Service's (HHS's) declaration [...] consistent with SARS-CoV-2. Performed By: #### C MEHREEN, HSTROPN, BNP #### [facility] [address] [place] [address] Dr. Spring Nash INFLUENZA A AND B AGon 01-31 INFLUANEGH SEE BELOW Normal [facility] Comment on above: Result Comment: Nega tive for Flu A protein angiten. Infection due to Flu A cannot be ruled out. Flu A angiten in the sample may be below the detection limit of the test. Performed By: #### C MP, HSTROPN, BNP #### [facility] [address] [address] [address] Spring Nash INFLUBNEGH SEE BELOW Normal [facility] Comment on above: Result Comment: Nega tive for Flu B protein antigen. Infection due to Flu B cannot be ruled out. Flu B antigen in the sample may be below the detection limit of the test. Performed By: #### C MP, HSTROPN, BNP #### [facility] [address] [place] [address] Dr. Spring Nash INFLUENZA A AG Negative Normal NEGATIVE SEE COMMENT [facility] Comment on above: Performed By: #### C MP, HSTROPN, BNP #### [facility] [address] [place] [address] Dr. Spring Nash INFLUENZA B AG Negative Normal NEGATIVE SEE COMMENT [facility] Comment on above: Performed By: #### C MP, HSTROPN, BNP #### [facility] [address] [place] [address] Dr. Spring Nash SYMPTOMATIC COVID-19 ANTIGEN on 01-31-2023 EUA Statement SEE BELOW Normal [facility] Comment on above: [...] sooner. Performed By: #### P OCGLUC #### [facility] [address] [place] [address] Dr. Spring Nash SARS-CoV-2 (COVID-19) RNA HONEY+probe Ql (Unsp spec) Negative Normal NEGATIVE [facility] Comment on above: Performed By: #### P OCGLUC #### [facility] [address] [place] [address] Dr. Spring Nash Study observation Right reti na by OCTon 01-08-2023 [facility] Radiology Study observation (narrative) [facility] Telephone Encounteron 2022 Sales Utility Representative Authentication Interface Message Text Pt's family member Ayla Minor called to let us know that pt is admitted to the hospital currently so he would need to have the urgent eye appt for tomorrow rescheduled. Contact Ayla @[phone] Normal [facility] Telephone Encounteron 2022 Sales Utility Representative Authentication Interface Message Text Patient states can come in next Saturday at 10 am Normal [facility] Patient Instructionson 01-01 Sales Utility Representative Authentication Interface Message Text Use the provided [...] an appointment for next Saturday. Normal [facility] Progress Noteson 01-01-2023 Sales Utility Representative Authentication Interface Message Text Urgent visit for [...] neck no ICA stenosis - GCA symptoms NAYAK, jaw mikaela, F/C negative - rec go [...] resident's note. Brady Lowry MD Normal [facility] Telephone Encounteron 2022 Sales Utility Representative Authentication Interface Message Text On chart review, [...] patient in for an urgent visit at [facility] Eye clinic located 3rd floor [facility] Urgent visit today at 2:00 PM. Dilate OU Lyndsay Cooper MD Ophthalmology Resident, PGY-2 Normal [facility] Representative Authentication Interface Message Text Mr. Minor is a patient of Dr. Frank. He cannot see out of his R eye... sees nothing. States he woke up today with eye unable to open due to discharge. Believes he has an infection. He can be reached at [phone]. Normal [facility] FUNDUS PHOTOS - OU - BOTH EY ESon 12-19-2022 Right Eye Macula findings include microaneurysms. Periphery findings include hemorrhage. Left Eye Macula findings include microaneurysms. Periphery findings include hemorrhage, neovascularization. [facility] Radiology Study observation (narrative) [facility] CUI RETINAL PHOTOCOAGULATION - OU - BOTH EYESon 12-19-2022 [facility] Radiology Study observation (narrative) [facility] Progress Noteson 12-19-2022 Sales Utility Representative Authentication Interface Message Text Lost to f/u [...] neck no ICA stenosis - GCA symptoms NAYAK, jaw mikaela, F/C negative - rec go to ED if symptoms recur Return 2 months Dilate OU OCT mac OU Normal [facility] Study observation Right reti na by 12-19-2022 [facility] Radiology Study observation (narrative) [facility] INTRAVITREAL INJECTION, PHAR MACOLOGIC AGENT [...] mL Route: Intravitreal, Site: Right Eye Lot: [id number], Expiration date: 10/18/2022 Left Eye Preparation included 10% betadine to eyelids. A 30 gauge needle was used. Injection Medications: 1.25 mg bevacizumab 1.25MG/0.05 mL Route: Intravitreal, Site: Left Eye Lot: [id number], Expiration date: 10/18/2022 Post-op Right Eye Post [...] written and verbal post procedure care education. [facility] Radiology Study observation (narrative) [facility] Study observation Right reti na by 10-17-2022 [facility] Radiology Study observation (narrative) [facility] CBC W MANUAL DIFFon 10-04-20 22 ATYPICAL LYMPH # Normal [facility] Comment on above: Performed By: #### C SHIRA #### [facility] [address] [place] [address] Dr. Spring Nash ATYPICAL LYMPH % Normal [facility] Comment on above: Performed By: #### C SHIRA #### [facility] [address] [address] [address] Spring Nash BAND # 0.0 103/ul Normal 0.0-0.3 [facility] Comment on above: Performed By: #### C BCMAN #### [facility] [address] [address] [address] Spring Nash BAND % 0 % Normal 0-5 [facility] Comment on above: Performed By: #### C BCMAN #### [facility] [address] [address] [address] Spring Nash BASOM # 0.00 103/ul Normal 0.00-0.10 [facility] Comment on above: Performed By: #### C BCMAN #### [facility] [address] [address] [address] Spring Nash BASOM % 0.0 % Critically low 0.2-2.0 [facility] Comment on above: Performed By: #### C BCERICKSON #### [facility] [address] [place] [address] Dr. Spring Nash BLAST # Normal [facility] Comment on above: Performed By: #### C BCERICKSON #### [facility] [address] [place] [address] Dr. Spring Nash BLAST % Normal [facility] Comment on above: Performed By: #### C BCERICKSON #### [facility] [address] [place] [address] Dr. Spring Nash CORRECTED WBC Normal 4.0-11.0 [facility] Comment on above: Performed By: #### C BCERICKSON #### [facility] [address] [place] [address] Dr. Spring Nash EOS # 0.00 103/ul Normal 0.00-0.70 [facility] Comment on above: Performed By: #### C BCMAN #### [facility] [address] [place] [address] Dr. Spring Nash EOS% 0.0 % Critically low 0.9-7.0 [facility] Comment on above: Performed By: #### C BCERICKSON #### [facility] [address] [place] [address] Dr. Spring Nash HCT 28.5 % Critically low 42.0-54.0 [facility] Comment on above: Performed By: #### C SHIRA #### [facility] [address] [address] [address] Spring Nash HGB 9.5 g/dl Critically low 14.0-18.0 [facility] Comment on above: Performed By: #### C SHIRA #### [facility] [address] [address] [address] Spring Nash LYMPHM # 0.00 103/ul Critically low 1.20-3.80 [facility] Comment on above: Performed By: #### C SHIRA #### [facility] [address] [address] [address] Spring Nash LYMPHM% 0.0 % Critically low 20.5-60.0 [facility] Comment on above: Performed By: #### C SHIRA #### [facility] [address] [address] [address] Spring Nash MCH 30.3 pg Normal 25.9-34.0 [facility] Comment on above: Performed By: #### C SHIRA #### [facility] [address] [address] [address] Spring Nash MCHC 33.3 g/dl Normal 29.9-35.2 [facility] Comment on above: Performed By: #### C SHIRA #### [facility] [address] [place] [address] Dr. Spring Nash MCV 90.8 fL Normal 80.0-94.0 [facility] Comment on above: Performed By: #### C SHIRA #### [facility] [address] [address] [address] Spring Nash METAMYELOCYTE # Normal [facility] Comment on above: Performed By: #### C SHIRA #### [facility] [address] [address] [address] Spring Nash METAMYELOCYTE % Normal [facility] Comment on above: Performed By: #### C SHIRA #### [facility] [address] [address] [address] Spring Nash MONOM# 0.00 103/ul Critically low 0.30-0.80 [facility] Comment on above: Performed By: #### C SHIRA #### [facility] [address] [place] [address] Dr. Spring Nash MONOM% 0.0 % Critically low 1.7-12.0 [facility] Comment on above: Performed By: #### C SHIRA #### [facility] [address] [place] [address] Dr. Spring Nash MPV 12.0 fL Normal 9.5-13.5 [facility] Comment on above: Performed By: #### C SHIRA #### [facility] [address] [place] [address] Dr. Spring Nash MYELOCYTE # Normal [facility] Comment on above: Performed By: #### C SHIRA #### [facility] [address] [place] [address] Dr. Spring Nash MYELOCYTE % Normal [facility] Comment on above: Performed By: #### C SHIRA #### [facility] [address] [place] [address] Dr. Spring Nash NRBC Normal [facility] Comment on above: Performed By: #### C SHIRA #### [facility] [address] [place] [address] Dr. Spring Nash PLT 182 103/ul Normal 150-450 [facility] Comment on above: Performed By: #### C SHIRA #### [facility] [address] [place] [address] Dr. Spring Nash RBC 3.14 106/ul Critically low 4.70-6.10 [facility] Comment on above: Performed By: #### C SHIRA #### [facility] [address] [place] [address] Dr. Spring Nash RDW 13.4 % Normal 11.0-15.0 [facility] Comment on above: Performed By: #### C SHIRA #### [facility] [address] [place] [address] Dr. Spring Nash SEG # 11.40 103/ul Critically high 1.40-6.50 [facility] Comment on above: Performed By: #### C BCMAN #### [facility] [address] [place], [place] [id number] Dr. Spring Nash SEG % 100.0 % Critically high 43.0-75.0 [facility] Comment on above: Performed By: #### C BCMAN #### [facility] [address] [place] [address] Dr. Spring Nash WBC 11.4 103/ul Critically high 4.0-11.0 [facility] Comment on above: Performed By: #### C BCMAN #### [facility] [address] [place] [address] Dr. Spring Nash POINT OF CARE GLUCOSEon 09-14 Glucose [Mass/Vol] 243 mg/dL Critically high 74-106 [facility] Comment on above: Performed By: #### P OCGLUC #### [facility] [address] [place] [address] Dr. Spring Nash Glucose [Mass/Vol] 219 mg/dL Critically high 74-106 [facility] Comment on above: Performed By: #### P OCGLUC #### [facility] [address] [place] [address] Dr. Spring Nahs PROF 14(COMP METB)on 022 Albumin [Mass/Vol] 2.5 g/dL Critically low 3.4-5.0 [facility] Comment on above: Performed By: #### C MP #### [facility] [address] [place] [address] Dr. Spring Nash Albumin/Globulin [Mass ratio] 0.7 {ratio} Normal [facility] Comment on above: Performed By: #### C MP #### [facility] [address] [place] [address] Dr. Spring Nash ALP [Catalytic activity/Vol] 96 U/L Normal 46-116 [facility] Comment on above: Performed By: #### C MP #### [facility] [address] [place] [address] Dr. Spring Nash ALT [Catalytic activity/Vol] 16 U/L Normal 16-63 [facility] Comment on above: Performed By: #### C MP #### [facility] [address] [place] [address] Dr. Spring Nash Anion gap [Moles/Vol] 12.3 mmol/L Normal [facility] Comment on above: Performed By: #### C MP #### [facility] [address] [place] [address] Dr. Spring Nash AST [Catalytic activity/Vol] 20 U/L Normal 15-37 [facility] Comment on above: Performed By: #### C MP #### [facility] [address] [place] [address] Dr. Spring Nash Bilirubin [Mass/Vol] 0.2 mg/dL Normal 0.2-1.0 [facility] Comment on above: Performed By: #### C MP #### [facility] [address] [place] [address] Dr. Spring Nash Calcium [Mass/Vol] 8.2 mg/dL Critically low 8.5-10.1 [facility] Comment on above: Performed By: #### C MP #### [facility] [address] [place] [address] Dr. Spring Nash Chloride [Moles/Vol] 102 mmol/L Normal 98-107 [facility] Comment on above: Performed By: #### C MP #### [facility] [address] [place] [address] Dr. Spring Nash CO2 [Moles/Vol] 24.4 mmol/L Normal 21.0-32.0 [facility] Comment on above: Performed By: #### C MP #### [facility] [address] [place] [address] Dr. Spring Nash Creatinine [Mass/Vol] 1.96 mg/dL Critically high 0.70-1.30 [facility] Comment on above: Performed By: #### C MP #### [facility] [address] [place] [address] Dr. Spring Nash EGFR-AF PARAGUAYAN 44 mL/min/1.73m2 Critically low >=60 [facility] Comment on above: Performed By: #### C MP #### [facility] [address] [address] [address] Spring Nash EGFR-NON AF PARAGUAYAN 36 mL/min/1.73m2 Critically low >=60 [facility] Comment on above: Performed By: #### C MP #### [facility] [address] [address] [address] Spring Nash Globulin (S) [Mass/Vol] 3.5 g/dL Normal [facility] Comment on above: Performed By: #### C MP #### [facility] [address] [address] [address] Spring Nash Glucose [Mass/Vol] 196 mg/dL Critically high 74-106 [facility] Comment on above: Performed By: #### C MP #### [facility] [address] [place] [address] Dr. Spring Nash Potassium [Moles/Vol] 4.7 mmol/L Normal 3.5-5.1 [facility] [facility] Comment on above: Performed By: #### C MP #### [facility] [address] [place] [address] Dr. Spring Nash Protein [Mass/Vol] 6.0 g/dL Critically low 6.4-8.2 [facility] Comment on above: Performed By: #### C MP #### [facility] [address] [place] [address] Dr. Spring Nash Sodium [Moles/Vol] 134 mmol/L Critically low 136-145 Th [facility] Comment on above: Performed By: #### C MP #### [facility] [address] [address] [address] Spring Nash Urea nitrogen [Mass/Vol] 47.0 mg/dL Critically high 7.0-18.0 [facility] Comment on above: Performed By: #### C MP #### [facility] [address] [address] [address] Spring Nash Urea nitrogen/Creatinine [Mass ratio] 24.0 mg/mg Normal [facility] Comment on above: Performed By: #### C MP #### [facility] [address] [address] [address] Spring Nash CARDIAC EDWARD 3-6on 2 CK [Catalytic activity/Vol] 262 U/L Normal 39-308 [facility] Comment on above: Performed By: #### C MP, HSTROPN, BNP #### [facility] [address] [address] [address] Spring Nash CK.MB [Mass/Vol] 3.55 ng/mL Normal <=3.[address] [facility] Comment on above: Performed By: #### C MP, HSTROPN, BNP #### [facility] [address] [place] [address] Dr. Spring Nash HSTROP 25.8 pg/mL Normal 4.0-76.1 [facility] Comment on above: Result Comment: CUT- OFF POINTS HAVE BEEN ESTABLISHED BASED ON THE FOURTH UNIVERSAL DEFINITIONS OF MYOCARDIAL INFARCTION. THE UPPER REFERENCE LIMIT (URL) OF TROPONIN, DEFINED THE 99TH PERCENTILE OF cTnI DISTRIBUTION IN A REFERENCE POPULATION, HAS BEEN CONFIRMED THE DECISION THRESHOLD FOR SD DIAGNOSIS. Performed By: #### C MP, HSTROPN, BNP #### [facility] [address] [place] [address] Dr. Spring Nash CTA CHEST WO W [...] artery calcifications. Central airway is patent. Developing uxhws-qm-plostyww bilateral pleural effusions occupying 20-30% of each [...] artifact and are not well evaluated. Developing pumqg-kt-pwnyobzh bilateral pleural effusions occupying 20-30% of each [...] by: SHRUTI HANCOCK Date: 2022-10-02 22:48 Normal [facility] ECHO LIMITED STUDYon 022 ECHO LIMITED STUDY Patient: MELVI MINOR Exam Date: 10/03/2022 : 1970 Gender:M Ordering : DR KEVON CASTELLANO . Admission #: [id number] Family : DR FADI TENORIO DSpeedy Order #: [id number] CLICK HERE TO VIEW EXAM ECHOCARDIOGRAM REPORT [...] Lord M.D. on 10/03/2022 at 13:17 Normal [facility] GLUCOSE BLOODon 10-03-2022 Glucose [Mass/Vol] 551 mg/dL Critically high 74-106 T [facility] Comment on above: Performed By: #### B MP #### [facility] [address] [address] [address] Spring Nash GLYCOHEMOGLOBIN A1Con 2021 ADA RECOMMENDATION SEE BELOW Normal [facility] Comment on above: Result Comment: ADA RECOMMENDED LIMIT 4.0 - 6.0 ADA THERAPEUTIC TARGET < 7.0 ACTION SUGGESTED > 7.0 Performed By: #### B MP #### [facility] [address] [address] [address] Spring Nash Glucose [Mass/Vol] 301 mg/dL Normal [facility] Comment on above: Performed By: #### B MP #### [facility] [address] [address] [address] Spring Nash HbA1c (Bld) [Mass fraction] 12.1 % Critically high 4.5-6.2 [facility] Comment on above: Performed By: #### B MP #### [facility] [address] [address] [address] Spring Nash POINT OF CARE GLUCOSEon 09-14 Glucose [Mass/Vol] 367 mg/dL Critically high [address] [place] [address] Comment on above: Performed By: #### C MEHREEN, HSTROPN, BNP #### [facility] [address] [address] [address] Spring Nash Glucose [Mass/Vol] 215 mg/dL Critically high [address] [place] [address] Comment on above: Performed By: #### C MEHREEN, HSTROPN, BNP #### [facility] [address] [place] [address] Dr. Spring Nash Glucose [Mass/Vol] 404 mg/dL Critically high [address] [place] [address] Comment on above: Performed By: #### P OCGLUC #### [facility] [address] [place] [address] Dr. Spring Nash Glucose [Mass/Vol] 486 mg/dL Critically high [address] [place] [address] Comment on above: Performed By: #### P OCGLUC #### [facility] [address] [address] [address] Spring Nash Glucose [Mass/Vol] 542 mg/dL Critically high [address] [place] [address] Comment on above: Result Comment: Resu lt Not Confirmed Performed By: #### P OCGLUC #### [facility] [address] [place] [address] Dr. Spring Nash ACETONE SERUMon 10-02-2022 ACETONE Negative Normal NEGATIVE [facility] Comment on above: Performed By: #### P OCGLUC #### [facility] [address] [place] [address] Dr. Spring Nash BNPon 10-02-2022 Natriuretic peptide B (Bld) [Mass/Vol] 3142.0 pg/mL Critically high <=900.0 [facility] Comment on above: Performed By: #### P OCGLUC #### [facility] [address] [place] [address] Dr. Spring Nash CARDIAC EDWARD 3-6on 2 CK [Catalytic activity/Vol] 250 U/L Normal 39-308 [facility] Comment on above: Performed By: #### P OCGLUC #### [facility] [address] [place] [address] Dr. Spring Nash CK.MB [Mass/Vol] 3.41 ng/mL Normal <=3.60 [facility] Comment on above: Performed By: #### P OCGLUC #### [facility] [address] [place] [address] Dr. Spring Nash HSTROP 27.1 pg/mL Normal 4.0-76.1 [facility] Comment on above: Result Comment: CUT- OFF POINTS HAVE BEEN ESTABLISHED BASED ON THE FOURTH UNIVERSAL DEFINITIONS OF MYOCARDIAL INFARCTION. THE UPPER REFERENCE LIMIT (URL) OF TROPONIN, DEFINED THE 99TH PERCENTILE OF cTnI DISTRIBUTION IN A REFERENCE POPULATION, HAS BEEN CONFIRMED THE DECISION THRESHOLD FOR SD DIAGNOSIS. Performed By: #### P OCGLUC #### [facility] [address] [place] [address] Dr. Spring Nash CBC AUTO DIFFon 10-02-2022 BASO # 0.0 103/ul Normal 0.0-0.1 [facility] Comment on above: Performed By: #### C MP #### [facility] [address] [place] [address] Dr. Spring Nash Basophils/100 WBC (Bld) 0.2 % Normal 0.2-2.0 [facility] Comment on above: Performed By: #### C MP #### [facility] [address] [place] [address] Dr. Spring Nash EO # 0.4 103/ul Normal 0.0-0.7 [facility] Comment on above: Performed By: #### C MP #### [facility] [address] [place] [address] Dr. Spring Nash Eosinophils/100 WBC (Bld) 3.5 % Normal 0.9-7.0 [facility] Comment on above: Performed By: #### C MP #### [facility] [address] [address] [address] Spring Nash Erythrocyte distribution width (RBC) [Ratio] 13.0 % Normal 11.0-15.0 [facility] Comment on above: Performed By: #### C MP #### [facility] [address] [place] [address] Dr. Spring Nash Hematocrit (Bld) [Volume fraction] 34.2 % Critically low 42.0-54.0 [facility] Comment on above: Performed By: #### C MP #### [facility] [address] [place] [address] Dr. Spring Nash Hemoglobin (Bld) [Mass/Vol] 11.8 g/dL Critically low 14.0-18.0 [facility] Comment on above: Performed By: #### C MP #### [facility] [address] [place] [address] Dr. Spring Nash IG # 0.07 10e3/ul Critically high 0.00-0.03 [facility] Comment on above: Performed By: #### C MP #### [facility] [address] [place] [address] Dr. Spring Nash IG % 0.6 % Critically high 0.0-0.5 [facility] Comment on above: Performed By: #### C MP #### [facility] [address] [place] [address] Dr. Spring Nash LYMPH # 1.2 103/ul Normal 1.2-3.8 [facility] Comment on above: Performed By: #### C MP #### [facility] [address] [place] [address] Dr. Spring Nash Lymphocytes/100 WBC (Bld) 9.5 % Critically low 20.5-60.0 [facility] Comment on above: Performed By: #### C MP #### [facility] [address] [place], [place] [id number] Dr. Spring Nash MANUAL DIFF REQ NO Normal [facility] Comment on above: Performed By: #### C MP #### [facility] [address] [place] [address] Dr. Spring Nash MCH (RBC) [Entitic mass] 31.3 pg Normal 25.9-34.0 [facility] Comment on above: Performed By: #### C MP #### [facility] [address] [place] [address] Dr. Spring Nash MCHC (RBC) [Mass/Vol] 34.5 g/dL Normal 29.9-35.2 [facility] Comment on above: Performed By: #### C MP #### [facility] [address] [place] [address] Dr. Spring Nash MCV (RBC) [Entitic vol] 90.7 fL Normal 80.0-94.0 [facility] Comment on above: Performed By: #### C MP #### [facility] [address] [place] [address] Dr. Spring Nash MONO # 0.6 103/ul Normal 0.3-0.8 [facility] Comment on above: Performed By: #### C MP #### [facility] [address] [place] [address] Dr. Spring Nash Monocytes/100 WBC (Bld) 4.8 % Normal 1.7-12.0 [facility] Comment on above: Performed By: #### C MP #### [facility] [address] [place] [address] Dr. Spring Nash NEUT # 10.1 103/ul Critically high 1.4-6.5 [facility] Comment on above: Performed By: #### C MP #### [facility] [address] [place] [address] Dr. Spring Nash Neutrophils/100 WBC (Bld) 81.4 % Critically high 43.0-75.0 [facility] Comment on above: Performed By: #### C MP #### [facility] [address] [place] [address] Dr. Spring Nash Platelet mean volume (Bld) [Entitic vol] 12.5 fL Normal 9.5-13.5 [facility] Comment on above: Performed By: #### C MP #### [facility] [address] [place] [address] Dr. Spring Nash PLT 212 103/ul Normal 150-450 [facility] Comment on above: Performed By: #### C MP #### [facility] [address] [place] [address] Dr. Spring Nash RBC 3.77 106/ul Critically low 4.70-6.10 [facility] Comment on above: Performed By: #### C MP #### [facility] [address] [place] [address] Dr. Spring Nash WBC 12.4 103/ul Critically high 4.0-11.0 [facility] Comment on above: Performed By: #### C MP #### [facility] [address] [place] [address] Dr. pSring Nash CULTURE BLOODon 10-02-2022 Microscopic examination of blood, culture Culture Observations: NO GROWTH AT 5 DAYS. Normal [facility] Comment on above: Performed By: #### P OCGLUC #### [facility] [address] [place] [address] Dr. Spring Nash Microscopic examination of blood, culture Culture Observations: NO GROWTH AT 5 DAYS. Normal [facility] Comment on above: Performed By: #### P OCGLUC #### [facility] [address] [place] [address] Dr. Spring Nash [facility] SARS-CoV-2 (COVID-19) RNA HONEY+probe Ql (Unsp spec) Not detected Normal NOT DETECTED [facility] Comment on above: Result Comment: When diagnostic [...] for this test is supported by the [place] of [employer] and Human Service's declaration that [...] By: #### C MP, HSTROPN, BNP #### [facility] [address] [place] [address] Dr. Spring Nash INFLUENZA A AND B AGon 10-02 INFLUENZA A AG Negative Normal NEGATIVE SEE COMMENT [facility] Comment on above: Performed By: #### C MP, HSTROPN, BNP #### [facility] [address] [place] [address] Dr. Spring Nash INFLUENZA B AG Negative Normal NEGATIVE SEE COMMENT [facility] Comment on above: Performed By: #### C MP, HSTROPN, BNP #### [facility] [address] [place] [address] Dr. Spring Nash INTERNAL CONTROLS Within Normal Limits Normal Wi thin Normal Limits [facility] Comment on above: Performed By: #### C MP, HSTROPN, BNP #### [facility] [address] [place] [address] Dr. Spring Nash LACTATE/LACTIC ACIDon 2021 Lactate [Moles/Vol] 1.5 mmol/L Normal 0.4-1.[address] [facility] Comment on above: Performed By: #### C MP, HSTROPN, BNP #### [facility] [address] [place] [address] Dr. Spring Nash PROF 14(COMP METB)on 022 Albumin [Mass/Vol] 2.7 g/dL Critically low 3.4-5.0 Th [facility] Comment on above: Performed By: #### P OCGLUC #### [facility] [address] [place] [address] Dr. Spring Nash Albumin/Globulin [Mass ratio] 0.7 {ratio} Normal [facility] Comment on above: Performed By: #### P OCGLUC #### [facility] [address] [address] [address] Spring Nash ALP [Catalytic activity/Vol] 169 U/L Critically high 46-116 [facility] Comment on above: Performed By: #### P OCGLUC #### [facility] [address] [address] [address] Spring Nash ALT [Catalytic activity/Vol] 13 U/L Critically low 16-63 [facility] Comment on above: Performed By: #### P OCGLUC #### [facility] [address] [address] [address] Spring Nash Anion gap [Moles/Vol] 13.7 mmol/L Normal [facility] Comment on above: Performed By: #### P OCGLUC #### [facility] [address] [address] [address] Spring Nash AST [Catalytic activity/Vol] 24 U/L Normal 15-37 [facility] Comment on above: Performed By: #### P OCGLUC #### [facility] [address] [address] [address] Spring Nash Bilirubin [Mass/Vol] 0.6 mg/dL Normal 0.2-1.0 [facility] Comment on above: Performed By: #### P OCGLUC #### [facility] [address] [address] [address] Spring Nash Calcium [Mass/Vol] 8.1 mg/dL Critically low 8.5-10.1 [facility] Comment on above: Performed By: #### P OCGLUC #### [facility] [address] [address] [address] Spring Nash Chloride [Moles/Vol] 102 mmol/L Normal 98-107 [facility] Comment on above: Performed By: #### P OCGLUC #### [facility] [address] [address] [address] Spring Nash CO2 [Moles/Vol] 25.1 mmol/L Normal 21.0-32.0 [facility] Comment on above: Performed By: #### P OCGLUC #### [facility] [address] [address] [address] Spring Nash Creatinine [Mass/Vol] 1.55 mg/dL Critically high 0.70-1.30 [facility] Comment on above: Performed By: #### P OCGLUC #### [facility] [address] [address] [address] Spring Nash EGFR-AF PARAGUAYAN 58 mL/min/1.73m2 Critically low >=60 [facility] Comment on above: Performed By: #### P OCGLUC #### [facility] [address] [address] [address] Spring Nash EGFR-NON AF PARAGUAYAN 48 mL/min/1.73m2 Critically low >=60 [facility] Comment on above: Performed By: #### P OCGLUC #### [facility] [address] [address] [address] Spring Nash Globulin (S) [Mass/Vol] 4.1 g/dL Normal [facility] Comment on above: Performed By: #### P OCGLUC #### [facility] [address] [place] [address] Dr. Spring Nash Glucose [Mass/Vol] 421 mg/dL Critically high 74-106 [facility] Comment on above: Performed By: #### P OCGLUC #### [facility] [address] [address] [address] Spring Nash Potassium [Moles/Vol] 4.8 mmol/L Normal 3.5-5.1 [facility] Comment on above: Performed By: #### P OCGLUC #### [facility] [address] [address] [address] Spring Nash Protein [Mass/Vol] 6.8 g/dL Normal 6.4-8.2 [facility] Comment on above: Performed By: #### P OCGLUC #### [facility] [address] [address] [address] Spring Nash Sodium [Moles/Vol] 136 mmol/L Normal 136-145 [facility] Comment on above: Performed By: #### P OCGLUC #### [facility] [address] [address] [address] Spring Nash Urea nitrogen [Mass/Vol] 29.0 mg/dL Critically high 7.0-18.0 [facility] Comment on above: Performed By: #### P OCGLUC #### [facility] [address] [address] [address] Spring Nash Urea nitrogen/Creatinine [Mass ratio] 18.7 mg/mg Normal [facility] Comment on above: Performed By: #### P OCGLUC #### [facility] [address] [place] [address] Dr. Spring Nash PROTIMEon 10-02-2022 INR Coag (PPP) [Relative time] {INR} Normal [facility] Comment on above: Performed By: #### P OCGLUC #### [facility] [address] [place] [address] Dr. Spring Nash INR GUIDELINES SEE BELOW Normal [facility] Comment on above: Result Comment: SHAWN RED INR: 2.0 - 3.0 CONDITIONS NOT LISTED BELOW 2.5 - 3.5 FOR PROSTHETIC HEART VALVE REPLACEMENT 2.5 - 3.5 RECURRENT THROMBOSIS Performed By: #### P OCGLUC #### [facility] [address] [place] [address] Dr. Spring Nash PT Coag (PPP) [Time] 9.8 s Normal 9.0-11.6 [facility] Comment on above: Performed By: #### P OCGLUC #### [facility] [address] [place] [address] Dr. Spring Nash PTTon 10-02-2022 aPTT Coag (Bld) [Time] 25.9 s Normal 22.3-36.2 [facility] Comment on above: Performed By: #### P OCGLUC #### [facility] [address] [place] [address] Dr. Spring Nash TROPONIN, HIGH SENSITIVITYon 10-02-2022 HSTROP 29.9 pg/mL Normal 4.0-76.1 [facility] Comment on above: Result Comment: CUT- OFF POINTS HAVE BEEN ESTABLISHED BASED ON THE FOURTH UNIVERSAL DEFINITIONS OF MYOCARDIAL INFARCTION. THE UPPER REFERENCE LIMIT (URL) OF TROPONIN, DEFINED THE 99TH PERCENTILE OF cTnI DISTRIBUTION IN A REFERENCE POPULATION, HAS BEEN CONFIRMED THE DECISION THRESHOLD FOR SD DIAGNOSIS. Performed By: #### P OCGLUC #### [facility] [address] [place] [address] Dr. Spring Nash TSHon 10-02-2022 TSH 2.707 uIU/mL Normal 0.358-3.74 0 [facility] Comment on above: Performed By: #### P OCGLUC #### [facility] [address] [place] [address] Dr. Spring Nash CBC AUTO DIFFon 07-31-2022 BASO # 0.0 103/ul Normal 0.0-0.1 [facility] Comment on above: Performed By: #### C MP, HSTROPN, BNP #### [facility] [address] [place] [address] Dr. Spring Nash Basophils/100 WBC (Bld) 0.5 % Normal 0.2-2.0 [facility] Comment on above: Performed By: #### C MP, HSTROPN, BNP #### [facility] [address] [place] [address] Dr. Spring Nash EO # 0.3 103/ul Normal 0.0-0.7 [facility] Comment on above: Performed By: #### C MP, HSTROPN, BNP #### [facility] [address] [place] [address] Dr. Spring Nash Eosinophils/100 WBC (Bld) 4.0 % Normal 0.9-7.0 [facility] Comment on above: Performed By: #### C MP, HSTROPN, BNP #### [facility] [address] [place] [address] Dr. Spring Nash Erythrocyte distribution width (RBC) [Ratio] 12.1 % Normal 11.0-15.0 [facility] Comment on above: Performed By: #### C MP, HSTROPN, BNP #### [facility] [address] [place] [address] Dr. Spring Nash Hematocrit (Bld) [Volume fraction] 37.4 % Critically low 42.0-54.0 [facility] Comment on above: Performed By: #### C MP, HSTROPN, BNP #### [facility] [address] [place] [address] Dr. Spring Nash Hemoglobin (Bld) [Mass/Vol] 12.9 g/dL Critically low 14.0-18.0 [facility] Comment on above: Performed By: #### C MP, HSTROPN, BNP #### [facility] [address] [place] [address] Dr. Spring Nash IG # 0.04 10e3/ul Critically high 0.00-0.03 [facility] Comment on above: Performed By: #### C MP, HSTROPN, BNP #### [facility] [address] [place] [address] Dr. Spring Nash IG % 0.5 % Normal 0.0-0.5 [facility] Comment on above: Performed By: #### C MP, HSTROPN, BNP #### [facility] [address] [place] [address] Dr. Spring Nash LYMPH # 1.7 103/ul Normal 1.2-3.8 [facility] Comment on above: Performed By: #### C MP, HSTROPN, BNP #### [facility] [address] [place] [address] Dr. Spring Nash Lymphocytes/100 WBC (Bld) 21.1 % Normal 20.5-60.0 [facility] Comment on above: Performed By: #### C MP, HSTROPN, BNP #### [facility] [address] [place] [address] Dr. Spring Nash MANUAL DIFF REQ NO Normal [facility] Comment on above: Performed By: #### C MP, HSTROPN, BNP #### [facility] [address] [place] [address] Dr. Spring Nash MCH (RBC) [Entitic mass] 31.0 pg Normal 25.9-34.0 [facility] Comment on above: Performed By: #### C MP, HSTROPN, BNP #### [facility] [address] [place] [address] Dr. Spring Nash MCHC (RBC) [Mass/Vol] 34.5 g/dL Normal 29.9-35.2 [facility] Comment on above: Performed By: #### C MP, HSTROPN, BNP #### [facility] [address] [place] [address] Dr. Spring Nash MCV (RBC) [Entitic vol] 89.9 fL Normal 80.0-94.0 [facility] Comment on above: Performed By: #### C MP, HSTROPN, BNP #### [facility] [address] [place] [address] Dr. Spring Nash MONO # 0.6 103/ul Normal 0.3-0.8 [facility] Comment on above: Performed By: #### C MP, HSTROPN, BNP #### [facility] [address] [place] [address] Dr. Spring Nash Monocytes/100 WBC (Bld) 7.9 % Normal 1.7-12.0 [facility] Comment on above: Performed By: #### C MP, HSTROPN, BNP #### [facility] [address] [place] [address] Dr. Spring Nash NEUT # 5.2 103/ul Normal 1.4-6.5 [facility] Comment on above: Performed By: #### C MP, HSTROPN, BNP #### [facility] [address] [place] [address] Dr. Spring Nash Neutrophils/100 WBC (Bld) 66.0 % Normal 43.0-75.0 [facility] Comment on above: Performed By: #### C MP, HSTROPN, BNP #### [facility] [address] [place] [address] Dr. Spring Nash Platelet mean volume (Bld) [Entitic vol] 11.5 fL Normal 9.5-13.5 [facility] Comment on above: Performed By: #### C MEHREEN HSTROPN, BNP #### [facility] [address] [address] [address] Spring Nash PLT 220 103/ul Normal 150-450 [facility] Comment on above: Performed By: #### C MEHREEN HSTROPN, BNP #### [facility] [address] [address] [address] Spring Nash RBC 4.16 106/ul Critically low 4.70-6.10 [facility] Comment on above: Performed By: #### C ROSITA VERDETRKRUNAL, BNP #### [facility] [address] [address] [address] Spring Nash WBC 7.8 103/ul Normal 4.0-11.0 [facility] Comment on above: Performed By: #### C ROSITA VERDETROPMichelle, BNP #### [facility] [address] [address] Dr. Spring Nash CT STROKE HEAD WOon [...] LISA DURAN Date: 2022-07-31 21:18 Normal [facility] Covid-19 PCR (CVDTB)on 07-14 SARS-CoV-2 (COVID-19) RNA HONEY+probe Ql (Unsp spec) Not detected Normal NOT DETECTED [facility] Comment on above: Result Comment: When diagnostic [...] for this test is supported by the [place] of Health and Human Service's declaration that [...] By: #### C MP, HSTROPN, BNP #### [facility] [address] [place] [address] Dr. Spring Nash PROF 14(COMP METB)on 022 Albumin [Mass/Vol] 3.1 g/dL Critically low 3.4-5.0 [facility] Comment on above: Performed By: #### P OCGLUC #### [facility] [address] [place] [address] Dr. Spring Nash Albumin/Globulin [Mass ratio] 0.9 {ratio} Normal [facility] Comment on above: Performed By: #### P OCGLUC #### [facility] [address] [place] [address] Dr. Spring Nash ALP [Catalytic activity/Vol] 124 U/L Critically high 46-116 [facility] Comment on above: Performed By: #### P OCGLUC #### [facility] [address] [place] [address] Dr. Spring Nash ALT [Catalytic activity/Vol] 18 U/L Normal 16-63 [facility] Comment on above: Performed By: #### P OCGLUC #### [facility] [address] [address] [address] Spring Nash Anion gap [Moles/Vol] 9.1 mmol/L Normal [facility] Comment on above: Performed By: #### P OCGLUC #### [facility] [address] [address] [address] Spring Nash AST [Catalytic activity/Vol] 11 U/L Critically low 15-37 [facility] Comment on above: Performed By: #### P OCGLUC #### [facility] [address] [address] [address] Spring Nash Bilirubin [Mass/Vol] 0.3 mg/dL Normal 0.2-1.0 [facility] Comment on above: Performed By: #### P OCGLUC #### [facility] [address] [address] [address] Spring Nash Calcium [Mass/Vol] 8.9 mg/dL Normal 8.5-10.1 [facility] Comment on above: Performed By: #### P OCGLUC #### [facility] [address] [place] [address] Dr. Sprnig Nash Chloride [Moles/Vol] 102 mmol/L Normal 98-107 [facility] Comment on above: Performed By: #### P OCGLUC #### [facility] [address] [address] [address] Spring Nash CO2 [Moles/Vol] 31.1 mmol/L Normal 21.0-32.0 [facility] Comment on above: Performed By: #### P OCGLUC #### [facility] [address] [address] [address] Spring Nash Creatinine [Mass/Vol] 1.58 mg/dL Critically high 0.70-1.30 [facility] Comment on above: Performed By: #### P OCGLUC #### [facility] [address] [address] [address] Spring Nash EGFR-AF PARAGUAYAN 56 mL/min/1.73m2 Critically low >=60 [facility] Comment on above: Performed By: #### P OCGLUC #### [facility] [address] [address] [address] Spring Nash EGFR-NON AF PARAGUAYAN 46 mL/min/1.73m2 Critically low >=60 [facility] Comment on above: Performed By: #### P OCGLUC #### [facility] [address] [address] [address] Spring Nash Globulin (S) [Mass/Vol] 3.4 g/dL Normal [facility] Comment on above: Performed By: #### P OCGLUC #### [facility] [address] [address] [address] Spring Nash Glucose [Mass/Vol] 218 mg/dL Critically high 74-106 [facility] Comment on above: Performed By: #### P OCGLUC #### [facility] [address] [address] [address] Spring Nash Potassium [Moles/Vol] 4.2 mmol/L Normal 3.5-5.1 [facility] Comment on above: Performed By: #### P OCGLUC #### [facility] [address] [address] [address] Spring Nash Protein [Mass/Vol] 6.5 g/dL Normal 6.4-8.2 [facility] Comment on above: Performed By: #### P OCGLUC #### [facility] [address] [address] [address] Spring Nash Sodium [Moles/Vol] 138 mmol/L Normal 136-145 [facility] Comment on above: Performed By: #### P OCGLUC #### [facility] [address] [address] [address] Spring Nash Urea nitrogen [Mass/Vol] 22.0 mg/dL Critically high 7.0-18.0 [facility] Comment on above: Performed By: #### P OCGLUC #### [facility] [address] [address] [address] Spring Nash Urea nitrogen/Creatinine [Mass ratio] 13.9 mg/mg Normal [facility] Comment on above: Performed By: #### P OCGLUC #### [facility] [address] [place] [address] Dr. Spring Nash PROTIMEon 07-31-2022 INR Coag (PPP) [Relative time] {INR} Normal [facility] Comment on above: Performed By: #### C MP #### [facility] [address] [place] [address] Dr. Spring Nash INR GUIDELINES SEE BELOW Normal [facility] Comment on above: Result Comment: SHAWN RED INR: 2.0 - 3.0 CONDITIONS NOT LISTED BELOW 2.5 - 3.5 FOR PROSTHETIC HEART VALVE REPLACEMENT 2.5 - 3.5 RECURRENT THROMBOSIS Performed By: #### C MP #### [facility] [address] [place] [address] Dr. Spring Nash PT Coag (PPP) [Time] 9.7 s Normal 9.0-11.6 [facility] Comment on above: Performed By: #### C MP #### [facility] [address] [place] [address] Dr. Spring Nash PTTon 07-31-2022 aPTT Coag (Bld) [Time] 23.0 s Normal 22.3-36.2 Th [facility] Comment on above: Performed By: #### C MP #### [facility] [address] [place] [address] Dr. Spring Nash TROPONIN, HIGH SENSITIVITYon 07-31-2022 HSTROP 36.6 pg/mL Normal 4.0-76.1 [facility] Comment on above: Result Comment: CUT- OFF POINTS HAVE BEEN ESTABLISHED BASED ON THE FOURTH UNIVERSAL DEFINITIONS OF MYOCARDIAL INFARCTION. THE UPPER REFERENCE LIMIT (URL) OF TROPONIN, DEFINED THE 99TH PERCENTILE OF cTnI DISTRIBUTION IN A REFERENCE POPULATION, HAS BEEN CONFIRMED THE DECISION THRESHOLD FOR SD DIAGNOSIS. Performed By: #### P OCGLUC #### [facility] [address] [place] [address] Dr. Spring Nash TSHon 07-31-2022 TSH 2.334 uIU/mL Normal 0.358-3.74 0 [facility] Comment on above: Performed By: #### P OCGLUC #### [facility] [address] [address] [address] Spring Nash XR CHEST 1 Von [...] by: CLIVE HOLLAND Date: 2022-07-31 20:54 Normal [facility] A1C HEMOGLOBINon 05-16-2022 HbA1c (Bld) [Mass fraction] 8.6 % [employer] Other Glucose - FINGER STICKon Glucose [Mass/Vol] 109 mg/dL [employer] [facility] [employer] Other HbA1c (Bld) [Mass fraction]o n 05-16-2022 A1C HEMOGLOBIN [facility] [employer] Other Basophils Auto (Bld) [#/Vol] Ordered By: Suzan Bennett on 04-21-2022 Basophils (Bld) [#/Vol] 0.1 10*3/uL 0.0-0.2 [facility] Basophils/100 WBC Auto (Bld) Ordered By: Suzan Bennett on 04-21-2022 Basophils/100 WBC (Bld) 0.6 % [facility] Blood hemoglobin measurement (mass/volume)Ordered By: Suzan Bennett on 04-21-2022 Hemoglobin (Bld) [Mass/Vol] 11.7 g/dL 13.0-17.0 [facility] Blood leukocytes automated c ount (number/volume)Ordered By: Suzan Bennett on 04-21-2022 WBC (Bld) [#/Vol] 9.0 10*3/uL 4.5-11.0 [facility] Creatinine and Glomerular fi ltration rate.predicted panel (S/P/Bld)Ordered By: Suzan Bennett on 04-21-2022 Creatinine [Mass/Vol] 1.75 mg/dL 0.64-1.27 [facility] Eosinophils Auto (Bld) [#/Vo l]Ordered By: Suzan Bennett on 04-21-2022 Eosinophils (Bld) [#/Vol] 0.3 10*3/uL 0.0-0.45 [facility] Eosinophils/100 WBC Auto (Bl d)Ordered By: Suzan Bennett on 04-21-2022 Eosinophils/100 WBC (Bld) 3.0 % [facility] Erythrocyte distribution wid th Auto (RBC) [Ratio]Ordered By: Suzan Bennett on 04-21-2022 Erythrocyte distribution width (RBC) [Ratio] 13.2 % 12.0-14.8 [facility] Estimated glomerular filtrat ion rate (GFR) non- AmericanOrdered By: Suzan Bennett on 04-21-2022 GFR/1.73 sq M.predicted among non-blacks MDRD (S/P/Bld) [Vol rate/Area] 41 mL/Min [facility] Hematocrit Auto (Bld) [Volum e fraction]Ordered By: Suzan Bennett on 04-21-2022 Hematocrit (Bld) [Volume fraction] 34.0 % 38.8-50.0 [facility] - Chemistry and C hemistry - challengeOrdered By: Sinan Holly on 04-21-2022 Natriuretic peptide B (Bld) [Mass/Vol] 51.0 pg/mL 5-100 [facility] - Hematology and Cell countsOrdered By: Suzan Bennett on 04-21-2022 Nucleated RBC/100 WBC (Bld) [Ratio] 0.0 % 0-0.5 [facility] Lymphocytes Auto (Bld) [#/Vo l]Ordered By: Suzan Bennett on 04-21-2022 Lymphocytes (Bld) [#/Vol] 1.6 10*3/uL 1.00-4.8 [facility] Lymphocytes/100 WBC Auto (Bl d)Ordered By: Suzan Bennett on 04-21-2022 Lymphocytes/100 WBC (Bld) 17.4 % [facility] MCH Auto (RBC) [Entitic mass ]Ordered By: Suzan Bennett on 04-21-2022 MCH (RBC) [Entitic mass] 31.2 pg 27.5-35.2 [facility] MCHC Auto (RBC) [Mass/Vol]Or dered By: Suzan Bennett on 04-21-2022 MCHC (RBC) [Mass/Vol] 34.3 g/dL 32.5-35.6 [facility] MCV Auto (RBC) [Entitic vol] Ordered By: Suzan Bennett on 04-21-2022 MCV (RBC) [Entitic vol] 90.8 fL 83.5-[address] [facility] Monocytes Auto (Bld) [#/Vol] Ordered By: Suzan Bennett on 04-21-2022 Monocytes (Bld) [#/Vol] 0.6 10*3/uL 0.0-0.8 [facility] Monocytes/100 WBC Auto (Bld) Ordered By: Suzan Bennett on 04-21-2022 Monocytes/100 WBC (Bld) 6.9 % F [facility] Neutrophils Auto (Bld) [#/Vo l]Ordered By: Suzan Bennett on 04-21-2022 Neutrophils (Bld) [#/Vol] 6.5 10*3/uL 1.8-7.7 [facility] Neutrophils/100 WBC Auto (Bl d)Ordered By: Suzan Bennett on 04-21-2022 Neutrophils/100 WBC (Bld) 72.1 % [facility] No Panel InformationOrdered By: Suzan Bennett on 04-21-2022 Estimated GFR () 50 mL/Min [facility] Comment on above: GFR estimated refere nce range: According to KDOQI guidelines, <60 ml/min/1.73m2 is sufficient to diagnose a patient with chronic kidney disease. Pharmacy Creatinine Clearance (Chem 57.15 [facility] Platelet mean volume Auto (B ld) [Entitic vol]Ordered By: Suzan Bennett on 04-21-2022 Platelet mean volume (Bld) [Entitic vol] 9.9 fL 6.6-10.1 [facility] Platelets Auto (Bld) [#/Vol] Ordered By: Suzan Bennett on 04-21-2022 Platelets (Bld) [#/Vol] 202 10*3/uL 150-450 [facility] RBC Auto (Bld) [#/Vol]Ordere d By: Suzan Bennett on 04-21-2022 RBC (Bld) [#/Vol] 3.75 10*6/uL 3.90-5.60 [facility] Serum or plasma calcium regi urement (mass/volume)Ordered By: Suzan Bennett on 04-21-2022 Calcium [Mass/Vol] 9.0 mg/dL 8.2-10.2 [facility] Serum or plasma chloride taryn surement (moles/volume)Ordered By: Suzan Bennett on 04-21-2022 Chloride [Moles/Vol] 99 mmol/L 95-114 [facility] Serum or plasma glucose regi urement (mass/volume)Ordered By: Suzan Bennett on 04-21-2022 Glucose [Mass/Vol] 215 mg/dL 70-100 [facility] Comment on above: ADA recommended refe rence range Random Glucose Reference Range is dependent on time and content of last meal. Glucose of more than 200 mg/dL in a nonstressed, ambulatory subject supports the diagnosis of Diabetes Mellitus. Serum or plasma potassium me asurement (moles/volume)Ordered By: Suzan Bennett on 04-21-2022 Potassium [Moles/Vol] 4.5 mmol/L 3.5-5.1 [facility] Serum or plasma sodium measu rement (moles/volume)Ordered By: Suzan Bennett on 04-21-2022 Sodium [Moles/Vol] 138 mmol/L 136-146 [facility] Serum or plasma total carbon dioxide measurement (moles/volume)Ordered By: Suzan Bennett on 04-21-2022 CO2 [Moles/Vol] 28.5 mmol/L 22.0-30.0 [facility] Serum or plasma urea nitroge n measurement (mass/volume)Ordered By: Suzan Bennett on 07-09-2022 Urea nitrogen [Mass/Vol] 42 mg/dL 9- [facility] Troponin I.cardiac [Mass/vol ume] in Serum or Plasma by High sensitivity methodOrdered By: Sinan Holly on 04-21-2022 Troponin I.cardiac High sensitivity method [Mass/Vol] 18 pg/mL 0-20 [facility] INTRAVITREAL INJECTION, PHAR MACOLOGIC AGENT - [...] and verbal post procedure care education. Notes [id number] [facility] Radiology Study observation (narrative) [facility] OCT, RETINA - OU - BOTH EYES on 03-21-2022 [facility] Radiology Study observation (narrative) [facility] Office Visit (Cardiology)on 03-07-2022 Follow-up [...] in adult Healthy Weight Tips; Status:Complete; Done: 07Mar2022 Hypertension, Ischemic cardiomyopathy Renew: Bumetanide 1 MG [...] we can help. You may also call 2-740-QZMKLoyalisNOW for free resources and assistance.; Status:Complete; Done: 07Mar2022 Tobacco Use Screening; Status:Complete; Done: 07Mar2022 Unlinked Stop: Potassium Chloride [facility] 20 [...] contact the office if new symptoms arise. HEALTH COMMISSIONER in 2 months Encourage healthy lifestyle choices [...] Isosorbide Mon (more content not included)... Normal [facility] Tobacco Screening.on 022 Fall risk assessment a) No falls within the last year -[facility] [facility] [address] DO Work Phone: Tobacco use status [facility] a) Yes M P-[facility] y 250 DO Work Phone: Tobacco Screening. Yes MP-[facility] [facility] 250 DO [...] contact the office if new symptoms arise. HEALTH COMMISSIONER in 2 weeks Encourage healthy lifestyle choices [...] DAILY NEEDED. (more content not included)... Normal [facility] Tobacco Screening.on 022 Adult depression screening assessment No [facility] [facility] [address] DO Work Phone: Adult depression screening assessment Yes [facility] [facility] [address] DO Work Phone: Fall risk assessment b) One or more fall s in the last year [facility] [facility] 250 DO Work Phone: Tobacco use status [facility] a) Yes M [facility] [facility] 250 DO Work Phone: Tobacco Screening. Yes [facility] [facility] 250 DO Work Phone: Tobacco Screening. 1-Several days [facility] [facility] 250 DO Work Phone: Tobacco Screening. 0-Not at all [facility] [facility] 250 DO Work Phone: Tobacco Screening. 2-More than half the days [facility] [facility] 250 DO Work Phone: Tobacco Screening. Somewhat Difficult [facility] [facility] 250 DO Work Phone: Glucose - FINGER STICKon Glucose [Mass/Vol] 194 mg/dL [facility] Other Tobacco Screening.on 022 Adult depression screening assessment No [facility] [facility] [address] DO Work Phone: Adult depression screening assessment Yes [facility] [facility] 250 DO Work Phone: [phone] Tobacco use status [facility] a) Yes M [facility] [facility] 250 DO Work Phone: [phone] Tobacco Screening. Yes [facility] [facility] 250 DO Work Phone: [phone] Tobacco Screening. 3-Nearly every day [facility] [facility] 250 DO Work Phone: [phone] Tobacco Screening. 0-Not at all [facility] [facility] 250 DO Work Phone: [phone] Tobacco Screening. 2-More than half the days [facility] [facility] 250 DO Work Phone: Tobacco Screening. 1-Several days [facility] [facility] 250 DO Work Phone: [phone] Tobacco Screening. Very Difficult [facility] [facility] 250 DO Work Phone: Basophils Auto (Bld) [#/Vol] Ordered By: Jonn Wallace on 01-12-2022 Basophils (Bld) [#/Vol] 0.0 10*3/uL 0.0-0.2 [facility] Basophils/100 WBC Auto (Bld) Ordered By: Jonn Wallace on 01-12-2022 Basophils/100 WBC (Bld) 0.6 % F [facility] Blood hemoglobin measurement (mass/volume)Ordered By: Jonn Wallace on 01-12-2022 Hemoglobin (Bld) [Mass/Vol] 11.5 g/dL 13.0-17.0 [facility] Blood leukocytes automated c ount (number/volume)Ordered By: Jonn Wallace on 01-12-2022 WBC (Bld) [#/Vol] 8.4 10*3/uL 4.5-11.0 [facility] Creatinine and Glomerular fi ltration rate.predicted panel (S/P/Bld)Ordered By: Jonn Wallace on 01-12-2022 Creatinine [Mass/Vol] 1.21 mg/dL 0.64-1.27 [facility] Eosinophils Auto (Bld) [#/Vo l]Ordered By: Jonn Wallace on 01-12-2022 Eosinophils (Bld) [#/Vol] 0.5 10*3/uL 0.0-0.45 [facility] Eosinophils/100 WBC Auto (Bl d)Ordered By: Jonn Wallace on 01-12-2022 Eosinophils/100 WBC (Bld) 6.3 % [facility] Erythrocyte distribution wid th Auto (RBC) [Ratio]Ordered By: Jonn Wallace on 01-12-2022 Erythrocyte distribution width (RBC) [Ratio] 14.2 % 12.0-14.8 [facility] Estimated glomerular filtrat ion rate (GFR) non- AmericanOrdered By: Jonn Wallace on 01-12-2022 GFR/1.73 sq M.predicted among non-blacks MDRD (S/P/Bld) [Vol rate/Area] > 60 mL/Min [facility] Glucose Glucometer (BldC) [M ass/Vol]Ordered By: Jonn Wallace on 01-12-2022 Glucose [Mass/Vol] 161 mg/dL [facility] Comment on above: Random Glucose Refer ence Range is dependent on time and content of last meal. Glucose of more than 200 mg/dL in a nonstressed, ambulatory subject supports the diagnosis of Diabetes Mellitus. Hematocrit Auto (Bld) [Volum e fraction]Ordered By: Jonn Wallace on 01-12-2022 Hematocrit (Bld) [Volume fraction] 34.0 % 38.8-50.0 [facility] - Chemistry and C hemistry - challengeOrdered By: Jonn Wallace on 01-12-2022 Magnesium [Mass/Vol] 1.9 mg/dL 1.6-2.6 [facility] - Hematology and Cell countsOrdered By: Jonn Wallace on 01-12-2022 Nucleated RBC/100 WBC (Bld) [Ratio] 0.1 % 0-0.5 [facility] Lymphocytes Auto (Bld) [#/Vo l]Ordered By: Jonn Wallace on 01-12-2022 Lymphocytes (Bld) [#/Vol] 1.6 10*3/uL 1.00-4.8 [facility] Lymphocytes/100 WBC Auto (Bl d)Ordered By: Jonn Wallace on 01-12-2022 Lymphocytes/100 WBC (Bld) 19.6 % [facility] MCH Auto (RBC) [Entitic mass ]Ordered By: Jonn Wallace on 01-12-2022 MCH (RBC) [Entitic mass] 30.9 pg 27.5-35.2 [facility] MCHC Auto (RBC) [Mass/Vol]Or dered By: Jonn Wallace on 01-12-2022 MCHC (RBC) [Mass/Vol] 33.9 g/dL 32.5-35.6 [facility] MCV Auto (RBC) [Entitic vol] Ordered By: Jonn Wallace on 01-12-2022 MCV (RBC) [Entitic vol] 91.2 fL 83.5-[address] [facility] Monocytes Auto (Bld) [#/Vol] Ordered By: Jonn Wallace on 01-12-2022 Monocytes (Bld) [#/Vol] 0.6 10*3/uL 0.0-0.8 [facility] Monocytes/100 WBC Auto (Bld) Ordered By: Jonn Wallace on 01-12-2022 Monocytes/100 WBC (Bld) 7.2 % F [facility] Neutrophils Auto (Bld) [#/Vo l]Ordered By: Jonn Wallace on 01-12-2022 Neutrophils (Bld) [#/Vol] 5.5 10*3/uL 1.8-7.7 [facility] Neutrophils/100 WBC Auto (Bl d)Ordered By: Jonn Wallace on 01-12-2022 Neutrophils/100 WBC (Bld) 66.3 % [facility] No Panel InformationOrdered By: Jonn Wallace on 01-12-2022 Estimated GFR () > 60 mL/Min [facility] Comment on above: GFR estimated refere nce range: According to KDOQI guidelines, <60 ml/min/1.73m2 is sufficient to diagnose a patient with chronic kidney disease. Pharmacy Creatinine Clearance (Chem 82.85 [facility] Platelet mean volume Auto (B ld) [Entitic vol]Ordered By: Jonn Wallace on 01-12-2022 Platelet mean volume (Bld) [Entitic vol] 9.8 fL 6.6-10.1 [facility] Platelets Auto (Bld) [#/Vol] Ordered By: Jonn Wallace on 01-12-2022 Platelets (Bld) [#/Vol] 202 10*3/uL 150-450 [facility] RBC Auto (Bld) [#/Vol]Ordere d By: Jonn Wallace on 01-12-2022 RBC (Bld) [#/Vol] 3.73 10*6/uL 3.90-5.60 [facility] Serum or plasma calcium regi urement (mass/volume)Ordered By: Jonn Wallace on 01-12-2022 Calcium [Mass/Vol] 8.8 mg/dL 8.2-10.2 [facility] Serum or plasma chloride taryn surement (moles/volume)Ordered By: Jonn Wallace on 01-12-2022 Chloride [Moles/Vol] 103 mmol/L 95-114 [facility] Serum or plasma glucose regi urement (mass/volume)Ordered By: Jonn Wallace on 01-12-2022 Glucose [Mass/Vol] 69 mg/dL 70-100 [facility] Comment on above: Delta: 314 on -[id number] recommended reference rangeRandom Glucose Reference Range is dependent on time and content of last meal. Glucose of more than 200 mg/dL in a nonstressed, ambulatory subject supports the diagnosis of Diabetes Mellitus. Serum or plasma potassium me asurement (moles/volume)Ordered By: Jonn Wallace on 01-12-2022 Potassium [Moles/Vol] 4.2 mmol/L 3.5-5.1 [facility] Serum or plasma sodium measu rement (moles/volume)Ordered By: Jonn Wallace on 01-12-2022 Sodium [Moles/Vol] 137 mmol/L 136-146 [facility] Serum or plasma total carbon dioxide measurement (moles/volume)Ordered By: Jonn Wallace on 01-12-2022 CO2 [Moles/Vol] 26.2 mmol/L 22.0-30.0 [facility] Serum or plasma urea nitroge n measurement (mass/volume)Ordered By: Jonn Wallace on 01-12-2022 Urea nitrogen [Mass/Vol] 26 mg/dL 07-06 [facility] Activated partial thrombopla stin time (aPTT) in platelet poor plasma by coagulation aOrdered By: Jonn Wallace on 01-11-2022 aPTT Coag (PPP) [Time] 27.5 s 25.1-36.5 [facility] Albumin [Mass/volume] in Ser um or PlasmaOrdered By: Jonn Wallace on 01-11-2022 Albumin [Mass/Vol] 2.7 g/dL 3.2-5.5 [facility] Cholesterol [Mass/volume] in Serum or PlasmaOrdered By: Jonn Wallace on 01-11-2022 Cholesterol [Mass/Vol] 182 mg/dL 140-200 [facility] Comment on above: Chol less than 200 m g/dl low riskChol 201-239 mg/dl borderline riskChol 240 mg/dl and greater high risk Cholesterol in LDL Calc [Mas s/Vol]Ordered By: Jonn Wallace on 01-11-2022 Cholesterol in LDL [Mass/Vol] 114 mg/dL 0-100 [facility] Comment on above: LDL ATP III CLASSIFI CATIONLDL less than 100 mg/dL OptimalLDL 100-129 mg/dL Near or above optimalLDL 130-159 mg/dL Borderline highLDL 160-189 mg/dL HighLDL greater than 189 mg/dL Very high Cholesterol in VLDL Calc [Ma ss/Vol]Ordered By: Jonn Wallace on 01-11-2022 Cholesterol in VLDL [Mass/Vol] 38 mg/dL [facility] Globulin Calc (S) [Mass/Vol] Ordered By: Jonn Wallace on 01-11-2022 Globulin (S) [Mass/Vol] 2.4 g/dL [facility] - CoagulationOrde red By: Jonn Wallace on 01-11-2022 PT Coag (PPP) [Time] 10.1 s 9.0-12.9 [facility] No Panel InformationOrdered By: Jonn Wallace on 01-11-2022 Bedside Glucose Comment Glu2: cleaned meter [facility] Platelet poor plasma interna tional normalized ratio (INR) by coagulation assay (relatOrdered By: Jonn Wallace on 01-11-2022 INR Coag (PPP) [Relative time] 0.9 {INR} [facility] Comment on above: INR Therapeutic Rang [...] on 01-11-2022 Protein [Mass/Vol] 5.1 g/dL 6.1-7.9 [facility] Serum or plasma alanine walton otransferase measurement without P-5'-P (enzymatic activiOrdered By: Jonn Wallace on 01-11-2022 ALT No additional P-5'-P [Catalytic activity/Vol] 10 U/L 10-60 [facility] Serum or plasma albumin/glob ulin mass ratioOrdered By: Jonn Wallace on 01-11-2022 Albumin/Globulin [Mass ratio] 1.1 {ratio} [facility] Serum or plasma alkaline mari sphatase measurement (enzymatic activity/volume)Ordered By: Jonn Wallace on 01-11-2022 ALP [Catalytic activity/Vol] 110 U/L 32-92 [facility] Serum or plasma aspartate am inotransferase measurement (enzymatic activity/volume)Ordered By: Jonn Wallace on 01-11-2022 AST [Catalytic activity/Vol] 10 U/L 10-42 [facility] Serum or plasma high density lipoprotein (HDL) cholesterol measurementOrdered By: Jonn Wallace on 01-11-2022 Cholesterol in HDL [Mass/Vol] 30 mg/dL 29-71 [facility] Comment on above: HDL CHOL ATP-III CLA SSIFICATION Cardiovascular RiskHDL > or equal to 60 mg/dL LOWHDL < 40 mg/dL HIGH Serum or plasma total biliru bin measurement (mass/volume)Ordered By: Jonn Wallace on 01-11-2022 Bilirubin [Mass/Vol] 0.3 mg/dL 0.3-1.2 [facility] Serum or plasma total choles terol/high density lipoprotein (HDL) cholesterol mass ratOrdered By: Jonn Wallace on 01-11-2022 Cholesterol.total/Courtney sterol in HDL [Mass ratio] 6.1 {ratio} [facility] Triglyceride [Mass/volume] i n Serum or PlasmaOrdered By: Jonn Wallace on 01-11-2022 Triglyceride [Mass/Vol] 191 mg/dL 35-[address] [facility] Comment on above: TRIG ATP III [...] High sensitivity method [Mass/Vol] 46 pg/mL 0-20 [facility] Basophils Auto (Bld) [#/Vol] Ordered By: Mario Phillips on 01-10-2022 Basophils (Bld) [#/Vol] 0.1 10*3/uL 0.0-0.2 [facility] Basophils/100 WBC Auto (Bld) Ordered By: Mario Phillips on 01-10-2022 Basophils/100 WBC (Bld) 1.2 % F [facility] Beta-hydroxybutyric acid taryn surementOrdered By: Mario Phillips on 01-10-2022 Beta hydroxybutyrate [Mass/Vol] 0.17 mmol/L 0.05-0.27 [facility] Blood hemoglobin measurement (mass/volume)Ordered By: Mario Phillips on 01-10-2022 Hemoglobin (Bld) [Mass/Vol] 12.0 g/dL 13.0-17.0 [facility] Blood leukocytes automated c ount (number/volume)Ordered By: Mario Phillips on 01-10-2022 WBC (Bld) [#/Vol] 9.8 10*3/uL 4.5-11.0 [facility] COVID-19 Positive/NegativeOr dered By: Mario Phillips on 01-10-2022 SARS-CoV-2 (COVID-19) N gene HONEY+probe Ql (Resp) Negative Negative [facility] Comment on above: Testing for SARS-CoV -2 by RT-PCRThis test was developed and its performance characteristics determined by [employer] ([employer]) and validated at the [facility]. This test has not been FDA [...] (COVID-19) Ag IA.rapid Ql (Resp) Negative Negative [facility] Comment on above: This is a duplicate Estelita SARS Antigen (RACIEL) result to be used for statistical tracking purpose only. Creatinine and Glomerular fi ltration rate.predicted panel (S/P/Bld)Ordered By: Mario Phillips on 01-10-2022 Creatinine [Mass/Vol] 1.30 mg/dL 0.64-1.27 [facility] Eosinophils Auto (Bld) [#/Vo l]Ordered By: Mario Phillips on 01-10-2022 Eosinophils (Bld) [#/Vol] 0.4 10*3/uL 0.0-0.45 [facility] Eosinophils/100 WBC Auto (Bl d)Ordered By: Mario Phillips on 01-10-2022 Eosinophils/100 WBC (Bld) 4.2 % [facility] Erythrocyte distribution wid th Auto (RBC) [Ratio]Ordered By: Mario Phillips on 01-10-2022 Erythrocyte distribution width (RBC) [Ratio] 14.0 % 12.0-14.8 [facility] Estimated glomerular filtrat ion rate (GFR) non- AmericanOrdered By: Mario Phillips on 01-10-2022 GFR/1.73 sq M.predicted among non-blacks MDRD (S/P/Bld) [Vol rate/Area] 58 mL/Min [facility] Glucose mean value [Mass/vol ume] in Blood Estimated from glycated hemoglobinOrdered By: Jonn Wallace on 01-10-2022 Average glucose Estimated from glycated hemoglobin (Bld) [Mass/Vol] 407 mg/dL [facility] Hematocrit Auto (Bld) [Volum e fraction]Ordered By: Mario Phillips on 01-10-2022 Hematocrit (Bld) [Volume fraction] 35.2 % 38.8-50.0 [facility] Hemoglobin A1c percentageOrd ered By: Jonn Wallace on 01-10-2022 HbA1c (Bld) [Mass fraction] 15.8 % 4.3-5.6 [facility] Comment on above: Increased risk for d iabetes: 5.7 - 6.4diabetes: >6.4glycemic control for adults with diabetes: <7.0 Laboratory - Chemistry and C hemistry - challengeOrdered By: Mario Phillips on 01-10-2022 Natriuretic peptide B (Bld) [Mass/Vol] 252.0 pg/mL 5-100 [facility] Laboratory - Hematology and Cell countsOrdered By: Mario Phillips on 01-10-2022 Nucleated RBC/100 WBC (Bld) [Ratio] 0.0 % 0-0.5 [facility] - Microbiology an d Antimicrobial susceptibilityOrdered By: Mario Phillips on 01-10-2022 SARS-CoV-2 (COVID-19) RNA HONEY+probe Ql (Unsp spec) N/A [facility] Lymphocytes Auto (Bld) [#/Vo l]Ordered By: Mario Phillips on 01-10-2022 Lymphocytes (Bld) [#/Vol] 1.2 10*3/uL 1.00-4.8 [facility] Lymphocytes/100 WBC Auto (Bl d)Ordered By: Mario Phillips on 01-10-2022 Lymphocytes/100 WBC (Bld) 12.3 % [facility] MCH Auto (RBC) [Entitic mass ]Ordered By: Mario Phillips on 01-10-2022 MCH (RBC) [Entitic mass] 31.1 pg 27.5-35.2 [facility] MCHC Auto (RBC) [Mass/Vol]Or dered By: Mario Phillips on 01-10-2022 MCHC (RBC) [Mass/Vol] 34.1 g/dL 32.5-35.6 [facility] MCV Auto (RBC) [Entitic vol] Ordered By: Mario Phillips on 01-10-2022 MCV (RBC) [Entitic vol] 91.2 fL 83.5-[address] [facility] Monocytes Auto (Bld) [#/Vol] Ordered By: Mario Phillips on 01-10-2022 Monocytes (Bld) [#/Vol] 0.5 10*3/uL 0.0-0.8 [facility] Monocytes/100 WBC Auto (Bld) Ordered By: Mario Phillips on 01-10-2022 Monocytes/100 WBC (Bld) 4.8 % F [facility] Neutrophils Auto (Bld) [#/Vo l]Ordered By: Mario Phillips on 01-10-2022 Neutrophils (Bld) [#/Vol] 7.6 10*3/uL 1.8-7.7 [facility] Neutrophils/100 WBC Auto (Bl d)Ordered By: Mario Phillips on 01-10-2022 Neutrophils/100 WBC (Bld) 77.5 % [facility] No Panel InformationOrdered By: Mario Phillips on 01-10-2022 SARS Antigen (LFIA) [facility] Estimated GFR () > 60 mL/Min [facility] Comment on above: GFR estimated refere nce range: According to KDOQI guidelines, <60 ml/min/1.73m2 is sufficient to diagnose a patient with chronic kidney disease. Pharmacy Creatinine Clearance (Chem 76.93 [facility] No Panel InformationOrdered By: Jonn Wallace on 01-10-2022 D-Dimer Quantitative (PE/DVT) < 200 ng/mL 0-243 [facility] Comment on above: The reference range [...] volume (Bld) [Entitic vol] 9.8 fL 6.6-10.1 [facility] Platelets Auto (Bld) [#/Vol] Ordered By: Mario Phillips on 01-10-2022 Platelets (Bld) [#/Vol] 197 10*3/uL 150-450 [facility] RBC Auto (Bld) [#/Vol]Ordere d By: Mario Phillips on 01-10-2022 RBC (Bld) [#/Vol] 3.86 10*6/uL 3.90-5.60 [facility] Serum or plasma calcium regi urement (mass/volume)Ordered By: Mario Phillips on 01-10-2022 Calcium [Mass/Vol] 8.3 mg/dL 8.2-10.2 [facility] Serum or plasma chloride taryn surement (moles/volume)Ordered By: Mario Phillips on 01-10-2022 Chloride [Moles/Vol] 94 mmol/L 95-114 [facility] Serum or plasma glucose regi urement (mass/volume)Ordered By: Mario Phillips on 01-10-2022 Glucose [Mass/Vol] 525 mg/dL 70-100 [facility] Comment on above: Critical valueresult calledat 1528 on 01/10/22ADA recommended reference rangeRandom Glucose Reference Range is dependent on time and content of last meal. Glucose of more than 200 mg/dL in a nonstressed, ambulatory subject supports the diagnosis of Diabetes Mellitus. Serum or plasma potassium me asurement (moles/volume)Ordered By: Mario Phillips on 01-10-2022 Potassium [Moles/Vol] 4.6 mmol/L 3.5-5.1 [facility] Serum or plasma sodium measu rement (moles/volume)Ordered By: Mario Phillips on 01-10-2022 Sodium [Moles/Vol] 126 mmol/L 136-146 [facility] Serum or plasma total carbon dioxide measurement (moles/volume)Ordered By: Mario Phillips on 01-10-2022 CO2 [Moles/Vol] 22.7 mmol/L 22.0-30.0 [facility] Serum or plasma urea nitroge n measurement (mass/volume)Ordered By: Mario Phillips on 01-10-2022 Urea nitrogen [Mass/Vol] 17 mg/dL 9-23 [facility] TSH DL <= 0.005 mIU/L QnOrde red By: Jonn Wallace on 01-10-2022 TSH Qn 4.22 m[IU]/L 0.45-5.33 [facility] Troponin I.cardiac [Mass/vol ume] in Serum or Plasma by High sensitivity methodOrdered By: Mario Phillips on 01-10-2022 Troponin I.cardiac High sensitivity method [Mass/Vol] 43 pg/mL 0-20 [facility] COVID Quick Testingon 2020 Result Positive [facility] [employer] Other A1C HEMOGLOBINon 07-20-2021 HbA1c (Bld) [Mass fraction] % [facility] [employer] Other Glucose - FINGER STICKon Glucose [Mass/Vol] 573 mg/dL [facility] [employer] Other HbA1c (Bld) [Mass fraction]o n 07-20-2021 A1C HEMOGLOBIN [facility] [employer] Other CBC With Platelet and Differ entialon 12-29-2020 Basophils (Bld) [#/Vol] 0.0 10*3/uL Normal 0.0-0.2 [facility] Comment on above: Performed By: #### C BCWD ####[facility] [facility] [phone] Basophils/100 WBC (Bld) 0.4 % Normal [facility] Comment on above: Performed By: #### C BCWD ####[facility] [facility] [phone] Eosinophils (Bld) [#/Vol] 0.4 10*3/uL Normal 0.0-0.7 [facility] Comment on above: Performed By: #### C BCWD ####[facility] [facility] [phone] Eosinophils/100 WBC (Bld) 3.6 % Normal [facility] Comment on above: Performed By: #### C BCWD ####[facility] [facility] [phone] Erythrocyte distribution width (RBC) [Ratio] 16.1 % Critically high 11.5-14.5 [facility] Comment on above: Performed By: #### C BCWD ####[facility] [facility] [phone] Hematocrit (Bld) [Volume fraction] 33.1 % Low 42.0-52.0 [facility] Comment on above: Performed By: #### C BCWD ####[facility] [facility] [phone] Hemoglobin (Bld) [Mass/Vol] 10.8 g/dL Low 14.0-18.0 [facility] Comment on above: Performed By: #### C BCWD ####[facility] [facility] [phone] Lymphocytes (Bld) [#/Vol] 1.1 10*3/uL Normal 1.0-4.8 [facility] Comment on above: Performed By: #### C BCWD ####[facility] [facility] [phone] Lymphocytes/100 WBC (Bld) 9.4 % Normal [facility] Comment on above: Performed By: #### C BCWD ####[facility] [facility] [phone] MCH (RBC) [Entitic mass] 28.6 pg Normal 27.0-31.3 [facility] Comment on above: Performed By: #### C BCWD ####[facility] [facility] [phone] MCHC (RBC) [Mass/Vol] 32.8 % Low 33.0-37.0 [facility] Comment on above: Performed By: #### C BCWD ####[facility] [facility] [phone] MCV (RBC) [Entitic vol] 87.4 fL Normal 80.0-100.0 M [facility] Comment on above: Performed By: #### C BCWD ####[facility] [facility] [phone] Monocytes (Bld) [#/Vol] 0.7 10*3/uL Normal 0.2-0.8 [facility] Comment on above: Performed By: #### C BCWD ####[facility] [facility] [place] [phone] Monocytes/100 WBC (Bld) 5.9 % Normal [facility] [place] Comment on above: Performed By: #### C BCWD ####[facility] [facility] [place] [phone] Neutrophils (Bld) [#/Vol] 9.4 10*3/uL Critically high 1.4-6.5 [facility] Comment on above: Performed By: #### C BCWD ####[facility] [facility] [place] [phone] Neutrophils/100 WBC (Bld) 80.7 % Normal [facility] Comment on above: Performed By: #### C BCWD ####[facility] [facility] [phone] Platelets (Bld) [#/Vol] 314 10*3/uL Normal 130-400 [facility] Comment on above: Performed By: #### C BCWD ####[facility] [facility] [place] [phone] RBC (Bld) [#/Vol] 3.79 10*6/uL Low 4.70-6.10 [facility] Comment on above: Performed By: #### C BCWD ####[facility] [facility] [address] [phone] WBC (Bld) [#/Vol] 11.7 10*3/uL Critically high 4.8-10.8 [facility] Comment on above: Performed By: #### C BCWD ####[facility] [facility] [address] [phone] CBC auto differentialon 12-12 Basophils (Bld) [#/Vol] 0.0 10*3/uL 0.0 - 0.2 K/uL [facility] [employer] Work Phone: Basophils/100 WBC (Bld) 0.4 % [facility] Work Phone: Eosinophils (Bld) [#/Vol] 0.4 10*3/uL 0.0 - 0.7 K/uL [employer] Phone: Eosinophils/100 WBC (Bld) 3.6 % [employer] Phone: Erythrocyte distribution width (RBC) [Ratio] 16.1 % High 11.5 - 14.5 % [employer] Phone: Hematocrit (Bld) [Volume fraction] 33.1 % Low 42.0 - 52.0 % [employer] Phone: Hemoglobin (Bld) [Mass/Vol] 10.8 g/dL Low 14.0 - 18.0 g/dL [employer] Phone: Interpretation and review of laboratory results Abnormal [employer] Phone: Lymphocytes (Bld) [#/Vol] 1.1 10*3/uL 1.0 - 4.8 K/uL [employer] Phone: Lymphocytes/100 WBC (Bld) 9.4 % [employer] Phone: MCH (RBC) [Entitic mass] 28.6 pg 27.0 - 31.3 pg [employer] Phone: MCHC (RBC) [Mass/Vol] 32.8 % Low 33.0 - 37.0 % [employer] Phone: MCV (RBC) [Entitic vol] 87.4 fL 80.0 - 100.0 fL [employer] Phone: Monocytes (Bld) [#/Vol] 0.7 10*3/uL 0.2 - 0.8 K/uL [employer] Phone: Monocytes/100 WBC (Bld) 5.9 % [facility] Phone: Neutrophils Absolute 9.4 K/uL High 1.4 - 6 .5 K/uL [employer] Phone: Neutrophils/100 WBC (Bld) 80.7 % [employer] Phone: Platelets (Bld) [#/Vol] 314 10*3/uL 130 - 400 K/uL [employer] Phone: RBC (Bld) [#/Vol] 3.79 10*6/uL Low [employer] Phone: WBC (Bld) [#/Vol] 11.7 10*3/uL High 4.8 - 10.8 K/uL [facility] Phone: Comprehensive Metabolic Pane l reflex Mgon 12-29-2020 Anion gap [Moles/Vol] 19 mmol/L Critically high 9-15 [facility] Comment on above: Performed By: #### C MPX ####[facility] [facility] [phone] Albumin [Mass/Vol] 3.7 g/dL Normal 3.5-4.6 [facility] Comment on above: Performed By: #### C MPX ####[facility] [facility] [phone] ALP [Catalytic activity/Vol] 109 U/L Critically high 35-104 [facility] Comment on above: Performed By: #### C MPX ####[facility] [facility] RdVan [facility] [phone] ALT [Catalytic activity/Vol] 13 U/L Normal 0-41 [facility] Comment on above: Performed By: #### C MPX ####[facility] [facility] [place] [phone] AST [Catalytic activity/Vol] 15 U/L Normal 0-40 [facility] Comment on above: Performed By: #### C MPX ####[facility] [facility] [place] [phone] Bilirubin [Mass/Vol] mg/dL Normal 0.2-0.7 [facility] Comment on above: Performed By: #### C MPX ####[facility] [place] [phone] Calcium [Mass/Vol] 9.4 mg/dL Normal 8.5-9.9 [facility] Comment on above: Performed By: #### C MPX ####[facility] [place] [phone] Chloride [Moles/Vol] 104 mmol/L Normal 95-107 [facility] Comment on above: Performed By: #### C MPX ####[facility] [place] [phone] CO2 [Moles/Vol] 22 mmol/L Normal 20-31 [facility] Comment on above: Performed By: #### C MPX ####[facility] [facility] [phone] Creatinine [Mass/Vol] 1.50 mg/dL Critically high 0.70-1.20 [facility] Comment on above: Performed By: #### C MPX ####[facility] [place] [phone] GFR/1.73 sq M predicted among blacks MDRD (S/P/Bld) [Vol rate/Area] mL/min/{1.73_m2} Normal >60 [facility] Comment on above: Result Comment: >60 mL/min/1.73m2 EGFR, calc. for ages 18 and older using the MDRD formula (not corrected for weight), is valid for stable renal function. Performed By: #### C MPX ####[facility] [place] [phone] GFR/1.73 sq M.predicted MDRD (S/P/Bld) [Vol rate/Area] 49.6 mL/min/{1.73_m2} Low >60 [facility] Comment on above: Result Comment: >60 mL/min/1.73m2 EGFR, calc. for ages 18 and older using the MDRD formula (not corrected for weight), is valid for stable renal function. Performed By: #### C MPX ####[facility] [facility] [phone] Globulin (S) [Mass/Vol] 3.2 g/dL Normal 2.3-3.5 [facility] Comment on above: Performed By: #### C MPX ####[facility] [facility] [phone] Glucose [Mass/Vol] 211 mg/dL Critically high 70-99 [facility] Comment on above: Performed By: #### C MPX ####[facility] [facility] [phone] Potassium reflex Mg 5.2 mEq/L Critically high 3.4-4.9 [facility] Comment on above: Performed By: #### C MPX ####[facility] [facility] [phone] Protein [Mass/Vol] 6.9 g/dL Normal 6.3-8.0 [facility] Comment on above: Performed By: #### C MPX ####[facility] [facility] [phone] Sodium [Moles/Vol] 145 mmol/L Critically high 135-144 [facility] Comment on above: Performed By: #### C MPX ####[facility] [facility] [phone] Urea nitrogen [Mass/Vol] 54 mg/dL Critically high 6-20 [facility] Comment on above: Performed By: #### C MPX ####[facility] [facility] [phone] Comprehensive Metabolic Pane l w/ Reflex to MGon 12-29-2020 Albumin [Mass/Vol] 3.7 g/dL 3.5 - 4.6 g/dL [facility] [employer] Work Phone: ALP [Catalytic activity/Vol] 109 U/L High 35 - 104 U/L [facility] Center[facility] Work Phone: ALT [Catalytic activity/Vol] 13 U/L 0 - 41 U/L [facility] [employer] Work Phone: Anion gap [Moles/Vol] 19 mmol/L High [facility] Work Phone: AST [Catalytic activity/Vol] 15 U/L 0 - 40 U/L [facility] [employer] Work Phone: Bilirubin Ql (U) <0.2 0.2 - 0.7 mg/dL [facility] [employer] Work Phone: Calcium [Mass/Vol] 9.4 mg/dL 8.5 - 9.9 mg/dL [facility] [employer] Work Phone: Chloride [Moles/Vol] 104 mmol/L [facility] [employer] Work Phone: CO2 [Moles/Vol] 22 mmol/L [facility] CenterM[facility] [facility] Work Phone: Creatinine [Mass/Vol] 1.5 mg/dL High 0.70 - 1.20 mg/dL [facility] [employer] Work Phone: GFR >60.0 >60 [employer] Work Phone: Comment on above: >60 mL/min/1.73m2 EG FR, calc. for ages 18 and older using the MDRD formula (not corrected for weight), is valid for stable renal function. GFR Non- 49.6 Low >60 [employer] Work Phone: Comment on above: >60 mL/min/1.73m2 EG FR, calc. for ages 18 and older using the MDRD formula (not corrected for weight), is valid for stable renal function. Globulin (S) [Mass/Vol] 3.2 g/dL 2.3 - 3.5 g/dL [facility] Work Phone: Glucose [Mass/Vol] 211 mg/dL High 70 - 99 mg/dL [facility] Phone: Interpretation and review of laboratory results Abnormal [employer] Phone: Potassium [Moles/Vol] 5.2 mmol/L High [facility] [employer] Work Phone: Protein [Mass/Vol] 6.9 g/dL 6.3 - 8.0 g/dL [facility] [employer] Phone: Sodium [Moles/Vol] 145 mmol/L High [facility] [employer] Phone: Urea nitrogen [Mass/Vol] 54 mg/dL High 6 - 20 mg/dL [facility] [employer] Phone: POCT Glucoseon 12-29-2020 Glucose [Mass/Vol] 168 mg/dL Critically high 60-115 M [facility] Comment on above: Performed By: #### P GLU ####[facility] [phone] POC Performed on ACCU-CHEK Normal [facility] Comment on above: Performed By: #### P GLU ####[facility] [place] [phone] Glucose [Mass/Vol] 168 mg/dL High 60 - 115 mg/dl [facility] [employer] Phone: Interpretation and review of laboratory results Abnormal [facility] [employer] Phone: Performed on ACCU-CHEK [facility] [employer] Phone: Glucose [Mass/Vol] 242 mg/dL Critically high 60-115 [facility] [place] Comment on above: Performed By: #### P GLU #### [facility] [address] [place] [address] POC Performed on ACCU-CHEK [facility] [place] Comment on above: Performed By: #### P GLU #### [facility] [address] [place] [address] Glucose [Mass/Vol] 242 mg/dL High 60 - 115 mg/dl [facility] [employer] Phone: Interpretation and review of laboratory results Abnormal [facility] [employer] Phone: Performed on ACCU-CHEK [facility] [employer] Phone: APTTon 12-28-2020 aPTT Coag (Bld) [Time] 28.8 s Me [facility] [employer] Phone: Comment on above: Effective 08/17/2020: Heparin Therapeutic Range: 64.0 98.0 seconds. Basic Metabolic Panelon 12-12 Calcium [Mass/Vol] 9.3 mg/dL Normal 8.5-9.9 [facility] Comment on above: Performed By: #### B MP #### [facility] [address] [place] [address] Chloride [Moles/Vol] 99 mmol/L Normal 95-107 [facility] Comment on above: Performed By: #### B MP #### [facility] [address] [place] [address] CO2 [Moles/Vol] 29 mmol/L Normal 20-31 [facility] Comment on above: Performed By: #### B MP #### [facility] [address] [place] [address] Creatinine [Mass/Vol] 1.59 mg/dL Critically high 0.70-1.20 [facility] Comment on above: Performed By: #### B MP #### [facility] [address] [place] [address] GFR/1.73 sq M predicted among blacks MDRD (S/P/Bld) [Vol rate/Area] 56.2 mL/min/{1.73_m2} Low >60 [facility] Comment on above: Result Comment: >60 mL/min/1.73m2 EGFR, calc. for ages 18 and older using the MDRD formula (not corrected for weight), is valid for stable renal function. Performed By: #### B MP #### [facility] [address] [place] [address] GFR/1.73 sq M.predicted MDRD (S/P/Bld) [Vol rate/Area] 46.4 mL/min/{1.73_m2} Low >60 [facility] Comment on above: Result Comment: >60 mL/min/1.73m2 EGFR, calc. for ages 18 and older using the MDRD formula (not corrected for weight), is valid for stable renal function. Performed By: #### B MP #### [facility] [address] [place] [address] Glucose [Mass/Vol] 73 mg/dL Normal 70-99 [facility] Comment on above: Performed By: #### B MP #### [facility] [address] [place] [address] Potassium [Moles/Vol] 4.8 mmol/L Normal 3.4-4.9 [facility] Comment on above: Performed By: #### B MP #### [facility] [address] [place] [address] Sodium [Moles/Vol] 137 mmol/L Normal 135-144 [facility] Comment on above: Performed By: #### B MP #### [facility] [address] [place] [address] Urea nitrogen [Mass/Vol] 58 mg/dL Critically high 6-20 [facility] Comment on above: Performed By: #### B MP #### [facility] [address] [place] [address] Anion gap [Moles/Vol] 9 mmol/L Normal 9-15 [facility] Comment on above: Performed By: #### B MP #### [facility] [address] [place] [address] Anion gap [Moles/Vol] 9 mmol/L [facility] [employer] Work Phone: Calcium [Mass/Vol] 9.3 mg/dL 8.5 - 9.9 mg/dL [facility] [employer] Work Phone: Chloride [Moles/Vol] 99 mmol/L [facility] [employer] Work Phone: CO2 [Moles/Vol] 29 mmol/L [facility] Work Phone: Creatinine [Mass/Vol] 1.59 mg/dL High 0.70 - 1.20 mg/dL [facility] Phone: GFR 56.2 Low >60 [employer] Phone: Comment on above: >60 mL/min/1.73m2 EG FR, calc. for ages 18 and older using the MDRD formula (not corrected for weight), is valid for stable renal function. GFR Non- 46.4 Low >60 [employer] Phone: Comment on above: >60 mL/min/1.73m2 EG FR, calc. for ages 18 and older using the MDRD formula (not corrected for weight), is valid for stable renal function. Glucose [Mass/Vol] 73 mg/dL 70 - 99 mg/dL [facility] Phone: Interpretation and review of laboratory results Abnormal [facility] Phone: Potassium [Moles/Vol] 4.8 mmol/L [facility] [employer] Phone: Sodium [Moles/Vol] 137 mmol/L [facility] [employer] Phone: Urea nitrogen [Mass/Vol] 58 mg/dL High 6 - 20 mg/dL [facility] [employer] Phone: CBC Auto Differentialon 12-12 Basophils (Bld) [#/Vol] 0.0 10*3/uL 0.0 - 0.2 K/uL [facility] Phone: Basophils/100 WBC (Bld) 0.3 % [facility] Phone: Eosinophils (Bld) [#/Vol] 0.6 10*3/uL 0.0 - 0.7 K/uL [facility] Phone: Eosinophils/100 WBC (Bld) 5.5 % [facility] Phone: Erythrocyte distribution width (RBC) [Ratio] 15.1 % High 11.5 - 14.5 % [employer] Phone: Hematocrit (Bld) [Volume fraction] 34.7 % Low 42.0 - 52.0 % [facility] Phone: Hemoglobin (Bld) [Mass/Vol] 11.5 g/dL Low 14.0 - 18.0 g/dL [employer] Phone: Interpretation and review of laboratory results Abnormal [employer] Phone: Lymphocytes (Bld) [#/Vol] 1.4 10*3/uL 1.0 - 4.8 K/uL [facility] Phone: Lymphocytes/100 WBC (Bld) 13.4 % [employer] Phone: MCH (RBC) [Entitic mass] 28.8 pg 27.0 - 31.3 pg [employer] Phone: MCHC (RBC) [Mass/Vol] 33.0 % 33.0 - 37.0 % [employer] Phone: MCV (RBC) [Entitic vol] 87.0 fL 80.0 - 100.0 fL [employer] Phone: Monocytes (Bld) [#/Vol] 0.8 10*3/uL 0.2 - 0.8 K/uL [facility] Phone: Monocytes/100 WBC (Bld) 7.5 % [facility] Phone: Neutrophils Absolute 7.5 K/uL High 1.4 - 6 .5 K/uL [facility] Phone: Neutrophils/100 WBC (Bld) 73.3 % [facility] Phone: Platelets (Bld) [#/Vol] 306 10*3/uL 130 - 400 K/uL [employer] Phone: RBC (Bld) [#/Vol] 3.99 10*6/uL Low [facility] [employer] Work Phone: WBC (Bld) [#/Vol] 10.2 10*3/uL 4.8 - 10.8 K/uL [facility] [employer] Work Phone: CBC With Platelet and Differ entialon 12-28-2020 Basophils (Bld) [#/Vol] 0.0 10*3/uL Normal 0.0-0.2 [facility] Comment on above: Performed By: #### C BCWD #### [facility] [address] [place] [address] Basophils/100 WBC (Bld) 0.3 % Normal [facility] Comment on above: Performed By: #### C BCWD #### [facility] [address] [place] [address] Eosinophils (Bld) [#/Vol] 0.6 10*3/uL Normal 0.0-0.7 [facility] Comment on above: Performed By: #### C BCWD #### [facility] [address] [place] [address] Eosinophils/100 WBC (Bld) 5.5 % Normal [facility] Comment on above: Performed By: #### C BCWD #### [facility] [address] [place] [address] Erythrocyte distribution width (RBC) [Ratio] 15.1 % Critically high 11.5-14.5 [facility] Comment on above: Performed By: #### C BCWD #### [facility] [address] [place] [address] Hematocrit (Bld) [Volume fraction] 34.7 % Low 42.0-52.0 [facility] Comment on above: Performed By: #### C BCWD #### [facility] [address] [place] [address] Hemoglobin (Bld) [Mass/Vol] 11.5 g/dL Low 14.0-18.0 [facility] Comment on above: Performed By: #### C BCWD #### [facility] [address] [place] [address] Lymphocytes (Bld) [#/Vol] 1.4 10*3/uL Normal 1.0-4.8 [facility] Comment on above: Performed By: #### C BCWD #### [facility] [address] [place] [address] Lymphocytes/100 WBC (Bld) 13.4 % Normal [facility] Comment on above: Performed By: #### C BCWD #### [facility] [address] [place] [address] MCH (RBC) [Entitic mass] 28.8 pg Normal 27.0-31.3 [facility] Comment on above: Performed By: #### C BCWD #### [facility] [address] [place] [address] MCHC (RBC) [Mass/Vol] 33.0 % Normal 33.0-37.0 [facility] Comment on above: Performed By: #### C BCWD #### [facility] [address] [place] [address] MCV (RBC) [Entitic vol] 87.0 fL Normal 80.0-100.0 [facility] [place] Comment on above: Performed By: #### C BCWD #### [facility] [address] [place] [address] Monocytes (Bld) [#/Vol] 0.8 10*3/uL Normal 0.2-0.8 [facility] Comment on above: Performed By: #### C BCWD #### [facility] [address] [place] [address] Monocytes/100 WBC (Bld) 7.5 % Normal [facility] [place] Comment on above: Performed By: #### C BCWD #### [facility] [address] [place] [address] Neutrophils (Bld) [#/Vol] 7.5 10*3/uL Critically high 1.4-6.5 [facility] Comment on above: Performed By: #### C BCWD #### [facility] [address] [place] [address] Neutrophils/100 WBC (Bld) 73.3 % Normal [facility] Comment on above: Performed By: #### C BCWD #### [facility] [address] [place] [address] Platelets (Bld) [#/Vol] 306 10*3/uL Normal 130-400 [facility] Comment on above: Performed By: #### C BCWD #### [facility] [address] [place] [address] RBC (Bld) [#/Vol] 3.99 10*6/uL Low 4.70-6.10 [facility] Comment on above: Performed By: #### C BCWD #### [facility] [address] [place] [address] WBC (Bld) [#/Vol] 10.2 10*3/uL Normal 4.8-10.8 [facility] Comment on above: Performed By: #### C BCWD #### [facility] [address] [place] [address] COVID-19on 12-28-2020 COVID-19, NAAT Not Detected Normal Not Detect [facility] Comment on above: Result Comment: Rapi [...] authorized laboratories. Fact sheet for Healthcare Providers: https://www.fda.gov/media/504118/download Fact sheet for Patients: https://www.fda.gov/media/444767/download METHODOLOGY: Isothermal Nucleic Acid Amplification Performed By: #### C OVRG #### [facility] [address] [place] [address] COVID-19, Rapidon 12-28-2020 SARS-CoV-2, NAAT Not Detected Not Detected [facility] [employer] Phone: Comment on above: Rapid NAAT: Negative [...] authorized laboratories. Fact sheet for Healthcare Providers: https://www.fda.gov/media/749878/download Fact sheet for Patients: https://www.fda.gov/media/496328/download METHODOLOGY: Isothermal Nucleic Acid Amplification POCT Glucoseon 12-28-2020 Glucose [Mass/Vol] 86 mg/dL Normal 60-115 [facility] Comment on above: Performed By: #### P GLU #### [facility] [address] [place] [address] POC Performed on ACCU-CHEK Normal [facility] Comment on above: Performed By: #### P GLU #### [facility] [address] [place] [address] Glucose [Mass/Vol] 86 mg/dL 60 - 115 mg/dl [facility] [employer] Phone: Performed on ACCU-CHEK [facility] [employer] Phone: Partial Thromboplastin Timeo n 12-28-2020 aPTT Coag (Bld) [Time] 28.8 s Normal 24.4-36.8 [facility] Comment on above: Result Comment: Effe ctive 08/17/2020: Heparin Therapeutic Range: 64.0 ? 98.0 seconds. Performed By: #### P TT #### [facility] [address] [place] [address] Prothrombin Timeon 1 INR Coag (PPP) [Relative time] 1.0 {INR} Normal [facility] Comment on above: Performed By: #### P T #### [facility] [address] [place] [address] PT Coag (PPP) [Time] 13.7 s Normal 12.3-14.9 [facility] Comment on above: Performed By: #### P T #### [facility] [address] [place] [address] Protime-INRon 12-28-2020 INR Coag (PPP) [Relative time] 1.0 {INR} [facility] [employer] Phone: PT Coag (PPP) [Time] 13.7 s [facility] [employer] Phone: TYPE AND SCREENon 12-28-2020 ABO/Rh Positive [facility] [employer] Phone: Type and Screen Capture 3 sc rn cellon 12-28-2020 Type and Screen Capture 3 scrn cell PATIENT: MILY Forde LOC: [facility] BILL# : [id number] : 1970 SEX: M ORDERED BY: URIAH BONILLA ORDERED : 12/28/2020 12:26 COLLECTED: 12/28/2020 12:30 ORDER : [id number] RECEIVED : 12/28/2020 13:07 ------ TEST NAME RESULT UNITS RANGES ABN FL ST ABORH Capture O POS F Antibody 3 Cell Scrn Captu NEG F ----- Normal [facility] Comment on above: Performed By: #### T S3C #### [facility] [address] [place] [address] CTA ABDOMINAL AORTA W BILAT RUNOFF W WO CONTRASTon 12-21-2020 Three-vessel distal runoff, right lower extremity. Two-vessel distal runoff, left lower extremity, the anterior tibial and posterior tibial arteries. Bilateral lower extremity edema. Constipation All CT scans at this facility use dose modulation, iterative reconstruction, and/or weight based dosing when appropriate to reduce radiation dose to as low as reasonably achievable. [facility] [employer] Work Phone: CTA abdomen, pelvis, bilateral lower [...] to the level of the distal tibia. [employer] Phone: Chip, po Incoming Radiant Results From [employer] - 12/21/2020 9:36 AM EST CTA abdomen, [...] dose to as low as reasonably achievable. [employer] Phone: POCT Venouson 12-21-2020 Creatinine [Mass/Vol] 0.7 mg/dL Low 0.9 - 1.3 mg/dL [employer] Phone: GFR >60 >60 [employer] Phone: Comment on above: >60 mL/min/1.73m2 EG FR, calc. for ages 18 and older using the MDRD formula (not corrected for weight), is valid for stable renal function. GFR Non- >60 >60 [employer] Phone: Comment on above: >60 mL/min/1.73m2 EG FR, calc. for ages 18 and older using the MDRD formula (not corrected for weight), is valid for stable renal function. Interpretation and review of laboratory results Abnormal [employer] Phone: Performed on SEE BELOW [employer] Phone: Comment on above: Performed on POC Sample Type KELVIN [employer] Phone: CTA ABDOMINAL AORTA W BILAT RUNOFF [...] [place] MD 12/21/20 Final result Normal [facility] POCT Venouson 12-20-2020 Creatinine [Mass/Vol] 0.7 mg/dL Low 0.9-1.3 [facility] Comment on above: Performed By: #### P KELVIN #### [facility] [address] [place] [address] GFR/1.73 sq M predicted among blacks MDRD (S/P/Bld) [Vol rate/Area] mL/min/{1.73_m2} Normal >60 [facility] Comment on above: Result Comment: >60 mL/min/1.73m2 EGFR, calc. for ages 18 and older using the MDRD formula (not corrected for weight), is valid for stable renal function. Performed By: #### P KELVIN #### [facility] [address] [place] [address] GFR/1.73 sq M.predicted MDRD (S/P/Bld) [Vol rate/Area] mL/min/{1.73_m2} Normal >60 [facility] Comment on above: Result Comment: >60 mL/min/1.73m2 EGFR, calc. for ages 18 and older using the MDRD formula (not corrected for weight), is valid for stable renal function. Performed By: #### P KELVIN #### [facility] [address] [place] [address] POC Performed on SEE BELOW [facility] [place] Comment on above: Result Comment: Perf ormed on POC Performed By: #### P KELVIN #### [facility] [address] [place] [address] POC Sample Type KELVIN Normal [facility] Comment on above: Performed By: #### P KELVIN #### [facility] [address] [place] [address] Coding Summary.on 01-14-2019 Coding Summary. CODING DATE: 019 FINAL [facility] STATUS: Home (Routine DC) PAYOR: Commercial Insurance APC DESCRIPTION 5050 Level 4 Skin Procedures ADMIT DX: REASON [...] unspecified, not intractable, without status epilepticus Z79.4 FDC (current) use of insulin Z79.82 terminal clerk (current) use of aspirin Z79.51 terminal clerk (current) use of inhaled steroids Z79.899 Other halfway (current) drug therapy Z88.8 Allergy status to other drugs, medicaments and biological substances status PYMT PROC APC STAT DESCRIPTION DOCTOR NAME DATE 96290 4483 T Adjacent tissue transfer House Fadi MORALES 01/08/2019 or rearrangement, scalp, arms and/or legs; defect 10 sq cm or less 12985 Anesthesia for Luis Sellers Jr., DO 01/08/2019 [...] Rita Mckeon Date Saved: 01/14/2019 12:54 pm [facility] Inpatient Patient Summaryon 01-08-2019 Inpatient Patient Summary [facility] Clinical Discharge Instructions PERSON INFORMATION Name: CHANDLER [facility]OR [facility] Admitting Physician: Fatoumata Tirado MD Attending Physician: Fatoumata Tirado MD PCP: Fadi Tenorio DO Discharge Diagnosis: Scalp lesion Comment: PATIENT EDUCATION INFORMATION Instructions: Medication Leaflets: Follow up: With: Address: When: Fatoumata Tirado [address] [place] [address], [address] [place] [id number] [facility] (7) In 8 days 01/16/2019 MEDICATION LIST Comment: Normal [facility] Main OR Intraoperative Recor don 01-08-2019 Main OR Intraoperative Record IntraOp Document Type FT Summary Primary Physician: Fatoumata Tirado MD Finalized Date/Time: 01/08/19 14:23:55 Pt. Name: CHANDLER MINOR Yifan/Sex: 1970 Male Med Rec #: [id number] Physician: Fatoumata Tirado MD Financial #: [id number] Pt. Type: A Room/Bed: [place] [address] Admit/Disch: 01/08/19 07:12:00 - 01/08/19 12:35:00 Institution: Case Times FT Entry 1 Patient Times In Room 01/08/19 09:34:00 Out Room 01/08/19 10:32:00 Procedure Times Start 01/08/19 09:52:00 Stop 01/08/19 10:27:00 Anesthesia Times Start 01/08/19 09:34:00 Stop 01/08/19 10:32:00 Last Modified By: Nunu Asif CST 01/08/19 10:31:47 General Comments: 01/08/19 Chart opened to review and send charges J Yefri TEST CENTER ADMINISTRATOR Case Attendance FT Entry 1 Entry 2 Entry 3 Case Attendee Luis Sellers Jr., DO, MD, Fatoumata Chavez RN, Andrzej Pierre Role Performed Anesthesiologist of Surgeon - Primary Psych Arnp - Primary Record Time In 01/08/19 09:34:00 01/08/19 09:44:00 01/08/19 09:34:00 Time Out 01/08/19 10:32:00 01/08/19 10:32:00 01/08/19 10:32:00 Procedure CYST LESION CYST LESION CYST LESION REMOVAL(Left) REMOVAL(Left) REMOVAL(Left) Comments Last Modified By: Demetrius RN, Danielle Romo RN, Danielle Romo RN, Danielle Anderson 01/08/19 10:31:49 01/08/19 10:31:49 01/08/19 10:31:49 Entry 4 Entry 5 Case Attendee Demetrius MARTÍNEZ, Danielle Miguel CST, Gary Tao Role Performed Psych Arnp - Primary Scrub - Primary Time In 01/08/19 09:34:00 01/08/19 09:34:00 Time Out 01/08/19 10:32:00 01/08/19 10:32:00 Procedure CYST LESION CYST LESION REMOVAL(Left) REMOVAL(Left) Comments Last Modified By: Demetrius RN, Danielle Romo RN, Danielle Anderson 01/08/19 10:31:49 01/08/19 10:31:49 Perioperative Protocols FT [...] (If Applicable) PreOp Antibiotic No Time Out Luis Sellers Jr., DO, Jannie Tirado MD, Kathy Quigley RN, Demetrius Dubose RN, Myriam [...] Up Outcomes Met? Yes Last Modified By: aDnielle Romo RN 01/08/19 09:29:10 Post-Care Text: The [...] Romo RN, Barker Krupp RN, Andrzej Pierre, TEST CENTER ADMINISTRATOR, Gary Miguel CST, Gary Tao Outcomes Met? [...] to transfer/transport General Comments: report given to fingernail formerrn. Kassidy merchant rn Dressing/Packing FT Pre-Care Text: [...] safely administered during the perioperative period For [facility] please see scanned medication reconcilliation form [...] General Comments: specimen: left scalp lesion. - e.demetrius martínez Temperature Control Entry 1 Temperature Control BLANKET MISTRAL AIR Quantity 1 Aid PLUS LOWER BODY [[id number]][F] Fluid/[place] [facility] Mistral warming system Setting high/43 Body Site Lower anterior torso Last Modified By: Danielle Romo RN 01/08/19 07:32:52 Case Comments Finalized By: Nunu Asif CST Document Signatures Signed By: Danielle Romo RN 01/08/19 10:35 Nunu Asif CST 01/08/19 14:23 Normal [facility] Main OR PACU I Recordon 12-13 Main OR PACU I Record PACU Phase I Docum ent Type FT Summary Primary Physician: Fatoumata Tirado MD Finalized Date/Time: 01/08/19 11:13:30 Pt. Name: MILYCHANDLER/Sex: 1970 Male Med Rec #: [id number] Physician: Fatoumata Tirado MD Financial #: [id number] Pt. Type: A Room/Bed: [facility]/ Admit/Disch: 01/08/19 07:12:51 - Institution: Case Times [...] 11:03 Sugey Oden RN 01/08/19 11:13 Normal [facility] Main OR PACU II Recordon Main OR PACU II Record PACU Phase II Doc ument Type FT Summary Primary Physician: Fatoumata Tirado MD Finalized Date/Time: 01/08/19 13:45:23 Pt. Name: MILY CHANDLER Saha/Sex: 1970 Male Med Rec #: [id number] Physician: Fatoumata Tirado MD Financial #: [id number] Pt. Type: A Room/Bed: [facility] Admit/Disch: 01/08/19 07:12:51 - Institution: Case Times [...] 01/08/19 13:43 Ilana Peguero RN 01/08/19 13:45 [facility] Main OR Preoperative Recordo n 01-08-2019 Main OR Preoperative Record PreOp Document Type FT Summary Primary Physician: Fatoumata Tirado MD Finalized Date/Time: 01/08/19 09:51:30 Pt. Name: CHANDLER MINOR/Sex: 1970 Male Med Rec #: [id number] Physician: Fatoumata Tirado MD Financial #: [id number] Pt. Type: A Room/Bed: [place] [address] Admit/Disch: 01/08/19 07:12:51 - Institution: Case Times [...] Signed By: Danielle Romo RN 01/08/19 09:51 [facility] Operative Reporton 9 Operative Report Date of [...] Fatoumata Tirado Jr., M.D. aek Dictated: 01/08/2019 #[id number] Typed: 01/08/2019 #[id number] cc: Rosi Barragan Jr., M.D. [facility] Comment on above: Result Comment: Elec tronically Signed By: Candida FLAHERTY, Fatoumata Schwartz\.br\Date and Time Signed: 01/08/19 14:38 EDT Operative Report Patient: MELVI MINOR Age: 48 years Sex: Male : 1970 Associated Diagnoses: None Author: Fatoumata Tirado MD Postoperative Information Procedure: r/o scalp lesion and advancement flap closure (5cm length) Preoperative Diagnosis: Scalp lesion ([id number]-FY L98.9, Working, Medical). Postoperative Diagnosis: Scalp lesion (FHL80-TZ L98.9, Discharge, Medical). Performed by: Fatoumata Tirado MD. Findings: scalp cyst with fistulous tract. Specimens Removed: scalp lesion. Estimated Blood Loss: 10 ml. Medications Complications: None. Normal [facility] Comment on above: Result Comment: Elec tronically Signed By: Fatoumata Tirado MD\.br\Date and Time Signed: 01/08/19 10:45 EDT Patient Education - Texton 0 01-08-2019 Patient Education - Text [facility] Progress Note-Physicianon Protein mass conc Patient: MELVI [...] list: All Problems Asthma / SNOMED CT 765379421 / Confirmed Carpal tunnel syndrome / SNOMED CT 36616286 / Confirmed bilateral Depression / SNOMED CT 82070052 / Confirmed Diabetes / SNOMED CT 162760598 / Confirmed Acid reflux / SNOMED CT 100673613 / Confirmed Hypertension / SNOMED CT 4212524820 / Confirmed Scalp lesion / SNOMED CT 2221487881 / Confirmed x2 Migraine headache / SNOMED CT 93910696 / Confirmed Parkinson's disease / SNOMED CT 52062917 / Confirmed Sarcoidosis / SNOMED CT 85434202 / Confirmed Seizure / SNOMED CT 812188301 / Confirmed last July was last seizure- in PACU Sleep apnea / SNOMED CT 914123842 / Confirmed uses CPAP Smoker / SNOMED CT 934340544 / Confirmed Added secondary to documentation in [...] results Radiology results ECG interpretation Condition Plan [place] [employer]hesi[employer] (ASA) physical status classification: Class III. Anesthetic Preoperative Plan Anesthesia: General. . Anesthetic plan, risks, benefits, and alternatives discussed with the patient and/or family. Risks discussed: nausea, vomiting, headache, sore throat, dental injury, serious complications. Patient verbalized understanding. Communication: face to face with (patient 5 minutes, Pt educated on the importance of smoking cessation.). Normal [facility] Comment on above: Result Comment: Elec tronically Signed By: Nehemiah Orosco Jr, DO\.br\Date and Time Signed: 01/08/19 16:48 EDT Coding Summary.on 12-31-2018 Coding Summary. CODING DATE: 019 FINAL [facility] STATUS: Home (Routine DC) PAYOR: Commercial Insurance [...] CphT Date Saved: 12/31/2018 01:25 pm Normal [facility] Auto Diffon 12-30-2018 Basophils #/vol (Bld) 0.3 % Normal 0.0-2.0 [facility] Comment on above: Order Comment: Order Added by Discern Expert. Performed By: #### 2 [id number] #### [facility] [address] [place] [address] Basophils/Leukocytes Auto Pure number fraction (Bld) 0.0 E9/L Normal 0.0-0.2 [facility] Comment on above: Order Comment: Order Added by Discern Expert. Performed By: #### 2 [id number] #### [facility] [address] [place] [address] Eosinophils/100 WBC (Bld) 3.9 % Normal 0.0-8.0 [facility] Comment on above: Order Comment: Order Added by Discern Expert. Performed By: #### 2 [id number] #### [facility] [address] [place] [address] Eosinophils/Leukocytes Auto Pure number fraction (Bld) 0.3 E9/L Normal 0.0-0.5 [facility] Comment on above: Order Comment: Order Added by Asad Expert. Performed By: #### 2 [id number], [id number], [id number] #### [facility] [address] [place] [address] Lymphocytes/100 WBC (Bld) 22.4 % Normal 14.0-50.0 [facility] Comment on above: Order Comment: Order Added by Asad Expert. Performed By: #### 2 [id number], [id number] #### [facility] [address] [place] [id number] Lymphocytes/Leukocytes Auto Pure number fraction (Bld) 1.9 E9/L Normal 1.0-4.0 [facility] Comment on above: Order Comment: Order Added by Asad Expert. Performed By: #### 2 [id number], [id number], [id number] #### [facility] [address] [place] [address] Monocytes/100 WBC (Bld) 7.7 % Normal 4.0-14.0 [facility] Comment on above: Order Comment: Order Added by Discern Expert. Performed By: #### 2 [id number], [id number], [id number] #### [facility] [address] [place] [address] Monocytes/Leukocytes Auto Pure number fraction (Bld) 0.7 E9/L Normal 0.2-1.0 [facility] Comment on above: Order Comment: Order Added by Discern Expert. Performed By: #### 2 [id number], [id number], [id number] #### [facility] [address] [place] [address]54 Neutrophils/100 WBC (Bld) 65.7 % Normal 36.0-75.0 [facility] Comment on above: Order Comment: Order Added by Discern Expert. Performed By: #### 2 [id number], [id number], [id number] #### [facility] [address] [place] [address] Neutrophils/Leukocytes Auto Pure number fraction (Bld) 5.6 E9/L Normal 2.0-7.5 [facility] Comment on above: Order Comment: Order Added by Discern Expert. Performed By: #### 2 [id number], [id number], [id number] #### [facility] [address] [place] [address] BUNon 12-30-2018 Urea nitrogen mass conc 18 mg/dL Normal 5-21 F [facility] Comment on above: Performed By: #### 2 [id number], [id number], [id number], [id number], [id number] #### [facility] [address] [place] [address] CBC w/ Auto Diffon 9 Erythrocyte distribution width Ratio (RBC) 13.1 % Normal 10.9-14.2 [facility] Comment on above: Performed By: #### 2 [id number], [id number], [id number] #### [facility] [address] [place] [address] Hematocrit Volume Fraction (Bld) 39.6 % Normal 37.7-49.0 [facility] Comment on above: Performed By: #### 2 934295, [id number], [id number] #### [facility] [address] [place] [address] Hemoglobin mass conc (Bld) 13.7 g/dL Normal 13.5-17.5 [facility] Comment on above: Performed By: #### 2 620998, [id number], [id number] #### [facility] [address] [place] [address] MCH Entitic mass (RBC) 32.5 pg Normal 27.0-34.0 [facility] Comment on above: Performed By: #### 2 [id number], [id number], [id number] #### [facility] [address] [place] [address] MCHC mass conc (RBC) 34.5 g/dL Normal 33.3-35.7 [facility] Comment on above: Performed By: #### 2 845809, [id number], [id number] #### [facility] [address] [place] [address] MCV Entitic volume (RBC) 94.1 fL Normal 80.0-100.0 [facility] Comment on above: Performed By: #### 2 293187, [id number], [id number] #### [facility] [address] [place] [address] Platelet mean volume Entitic volume (Bld) 9.1 fL Normal 6.4-10.8 [facility] Comment on above: Performed By: #### 2 018528, [id number], [id number] #### [facility] [address] [place] [address] Platelets #/vol (Bld) 229.0 E9/L Normal 150.0- 500. 0 [facility] Comment on above: Performed By: #### 2 620279, [id number], [id number] #### [facility] [address] [place] [address] RBC #/vol (Bld) 4.2 E12/L Low 4.3-5.9 [facility] Comment on above: Performed By: #### 2 855473, [id number], [id number] #### [facility] [address] [place] [address] WBC corrected for nucl RBC Auto #/vol (Bld) 8.5 E9/L Normal 4.0-11.0 [facility] Comment on above: Performed By: #### 2 390891, [id number], [id number] #### [facility] [address] [place] [address] Creatinineon 12-30-2018 Creatinine mass conc 0.8 mg/dL Normal 0.5-1.3 [facility] Comment on above: Performed By: #### 2 339493, [id number], [id number], [id number], [id number] #### [facility] [address] [place] [address] Glucoseon 12-30-2018 Glucose mass conc 214 mg/dL High 55-199 [facility] Comment on above: Performed By: #### 2 145927, [id number], [id number], [id number], [id number] #### [facility] [address] [place] [address] Lyteson 12-30-2018 Anion gap molar conc 12 mmol/L Normal 6-16 [facility] Comment on above: Performed By: #### 2 214349, [id number], [id number], [id number], [id number] #### [facility] [address] [place] [address] Chloride molar conc 103 mmol/L Normal 101-111 [facility] Comment on above: Performed By: #### 2 273181, [id number], [id number], [id number], [id number] #### [facility] [address] [place] [address] CO2 molar conc 24 mmol/L Normal 21-31 [facility] Comment on above: Performed By: #### 2 441041, [id number], [id number], [id number], [id number] #### [facility] [address] [place] [address] Potassium molar conc 4.0 mmol/L Normal 3.5-5.3 [facility] Comment on above: Performed By: #### 2 169442, [id number], [id number], 5995152, [id number] #### [facility] [address] [place] [address] Sodium molar conc 135 mmol/L Normal 135-145 [facility] Comment on above: Performed By: #### 2 943218, [id number], [id number], 1907386, [id number] #### [facility] [address] [place] [address] PT & PTTon 12-30-2018 aPTT Coag time (PPP) 30.2 second(s) Normal 25.1-36.5 [facility] Comment on above: Result Comment: Hepa rin therapeutic range (represented by Anti-Factor Xa activity of 0.2 - 0.4 U/mL) corresponds to PTT of 56.6 - 109.0 sec. Performed By: #### 2 [id number], [id number], [id number] #### [facility] [address] [place] [address] INR Coag RelTime (PPP) 1.0 {INR} [facility] Comment on above: Result Comment: INR results are specifically intended to assess patients stabilized on long-term Anticoagulation therapy suggested INR?s ?Less Intensive Anticoagulation? 2.0 ? 3.0 Conventional Range 3.0 ? 4.5 Performed By: #### 2 [id number], [id number], [id number] #### [facility] [address] [place] [address] Prothrombin time (PT) Coag time (PPP) 10.6 second(s) Normal 10.2-12.9 [facility] Comment on above: Performed By: #### 2 485501, [id number], [id number] #### [facility] [address] [place] [address] XR Chest 2 Viewson 9 XR Chest [...] M.D. Transcribed by: ELDON Technologist: BARBARA Zuñiga [facility] eGFRon 12-30-2018 GFR/1.73 sq M predicted among blacks MDRD vol rate/area (S/P/Bld) mL/min/{1.73_m2} Normal >=59 [facility] Comment on above: Order Comment: Order added by Discern Expert. Result Comment: eGFR is race adjusted. AA=. Performed By: #### 2 747294, 7551589, [id number], [id number], [id number] #### [facility] [address] [place] [address] GFR/1.73 sq M predicted among non-blacks MDRD vol rate/area (S/P/Bld) mL/min/{1.73_m2} Normal >=59 [facility] Comment on above: Order Comment: Order added by Discern Expert. Result Comment: Closing Coordinator del kidney disease could be indicated at eGFR's of less than 60 mL/min/1.73m2. Kidney failure is indicated at less than 15 mL/min/1.73m2. Performed By: #### 2 [id number], [id number], [id number], [id number], [id number] #### [facility] [address] [place] [address] No Panel Information [facility] Vital Signs Date Time Vital Sign Value Performing Clinician Facility 09-17-2023 13:00-0500 Body height 170.18 cm Agus Pedroza Other [facility] 09-17-2023 13:00-0500 Diastolic blood pressure 74 mm[Hg] Agus Pedroza Other [facility] 09-17-2023 13:00-0500 SaO2% (BldA) [Mass fraction] 98 % Agus Yovany Other [facility] [employer] Other 09-17-2023 13:00-0500 Systolic blood pressure 113 mm[Hg] Agus Pedroza Other [facility] 08-03-2023 11:00-0400 Body temperature 98.6 [degF] DO Christopher Chase Work Phone: [facility] 08-03-2023 11:00-0400 Diastolic blood pressure 79 mm[Hg] DO Christopher Chase Work Phone: [facility] 08-03-2023 11:00-0400 Heart rate 79 /min DO Christopher Jack Work Phone: [facility] 08-03-2023 11:00-0400 Respiratory rate 14 /min DO Christopher Jack Work Phone: [facility] 08-03-2023 11:00-0400 SaO2% (BldA) [Mass fraction] 98 % DO Christopher Chase Work Phone: [facility] 08-03-2023 11:00-0400 Systolic blood pressure 168 mm[Hg] DO Christopher Chase Work Phone: [facility] 08-03-2023 05:54-0400 Inhaled oxygen flow rate 2 L/min DO Christopher Chase Work Phone: [facility] 08-02-2023 21:19-0400 Body height 173 cm DO Christopher Jack Work Phone: [facility] 08-02-2023 21:19-0400 Body mass index (BMI) [Ratio] 28.7 kg/m2 DO Christopher Jack Work Phone: [facility] 08-02-2023 21:19-0400 Body weight 86 kg DO Christopher Jack Work Phone: [facility] 08-02-2023 08:01-0400 Diastolic blood pressure 65 mm[Hg] DO Christopher Chase Work Phone: [facility] 08-02-2023 08:01-0400 Heart rate 69 /min DO Christopher Jack Work Phone: [facility] 08-02-2023 08:01-0400 Respiratory rate 15 /min DO Christopher Chase Work Phone: [facility] 08-02-2023 08:01-0400 SaO2% (BldA) [Mass fraction] 97 % DO Christopher Chase Work Phone: [facility] 08-02-2023 08:01-0400 Systolic blood pressure 96 mm[Hg] DO Christopher Jack Work Phone: [facility] 08-02-2023 07:44-0400 Body temperature 94.5 [degF] DO Christopher Jack Work Phone: [facility] 08-02-2023 04:42-0400 Inhaled oxygen flow rate 99 L/min DO Christopher Jack Work Phone: [facility] 08-02-2023 04:15-0400 Body height 172.72 cm DO Christopher Jack Work Phone: [facility] 08-02-2023 04:15-0400 Body mass index (BMI) [Ratio] 28.8 kg/m2 DO Christopher Chase Work Phone: [facility] 08-02-2023 04:15-0400 Body weight 86 kg DO Christopher Jack Work Phone: [facility] 08-02-2023 04:15-0400 SaO2% (BldA) [Mass fraction] 95.1 % DO Christopher Chase Work Phone: [facility] 05-21-2023 13:30-0400 Body height 170.18 cm Agus Pedroza Other [employer] Other 05-21-2023 13:30-0400 Diastolic blood pressure 100 mm[Hg] Agus Martinezey Other [employer] Other 05-21-2023 13:30-0400 SaO2% (BldA) [Mass fraction] 98 % Agus Martinezey Other [employer] Other 05-21-2023 13:30-0400 Systolic blood pressure 160 mm[Hg] Agus Martinezey Other [employer] [facility] [employer] Other 04-18-2023 16:35-0400 Body temperature 98.3 [degF] DO Fadi House Work Phone: [facility] 04-18-2023 16:35-0400 Diastolic blood pressure 86 mm[Hg] DO Fadi House Work Phone: [facility] 04-18-2023 16:35-0400 Heart rate 89 /min DO Fadi House Work Phone: [facility] 04-18-2023 16:35-0400 Respiratory rate 16 /min DO Fadi House Work Phone: [facility] 04-18-2023 16:35-0400 SaO2% (BldA) [Mass fraction] 97 % DO Fadi House Work Phone: [facility] 04-18-2023 16:35-0400 Systolic blood pressure 131 mm[Hg] DO Fadi House Work Phone: [facility] 04-18-2023 06:00-0400 Body weight 104.6 kg DO Fadi House Work Phone: [facility] 04-18-2023 04:00-0400 Inhaled oxygen flow rate 2 L/min DO Fadi House Work Phone: [facility] 04-16-2023 11:15-0400 Body height 167.64 cm DO Fadi House Work Phone: [facility] 05-16-2022 14:30-0400 Body height 170.18 cm Tondra Mapus Other [employer] [facility] [employer] Other 05-16-2022 14:30-0400 Diastolic blood pressure 108 mm[Hg] Tondra Mapus Other [employer] Other 05-16-2022 14:30-0400 Respiratory rate 18 /min Tondra Mapus Other [employer] Other 05-16-2022 14:30-0400 SaO2% (BldA) [Mass fraction] 98 % Tondra Mapus Other [employer] Other 05-16-2022 14:30-0400 Systolic blood pressure 155 mm[Hg] Tondra Mapus Other [employer] Other 04-22-2022 00:30-0400 Diastolic blood pressure 64 mm[Hg] DO Fadi House Work Phone: [facility] 04-22-2022 00:30-0400 Heart rate 82 /min DO Fadi House Work Phone: [facility] 04-22-2022 00:30-0400 Respiratory rate 18 /min DO Fadi House Work Phone: [facility] 04-22-2022 00:30-0400 SaO2% (BldA) [Mass fraction] 100 % DO Fadi House Work Phone: [facility] 04-22-2022 00:30-0400 Systolic blood pressure 129 mm[Hg] DO Fadi House Work Phone: [facility] 04-21-2022 21:09-0400 Body height 167.64 cm DO Fadi Tenorio Work Phone: [facility] 04-21-2022 21:09-0400 Body mass index (BMI) [Ratio] 37.1 kg/m2 DO Fadi Tneorio Work Phone: [facility] 04-21-2022 21:09-0400 Body temperature 97.8 [degF] DO Fadi Tenorio Work Phone: [facility] 04-21-2022 21:09-0400 Body weight 104.32 kg DO Fadi Tenorio Work Phone: [facility] 03-07-2022 11:50-0400 Diastolic blood pressure 80 mm[Hg] Fadi P House Work Phone: [facility] [facility] DO Work Phone: 03-07-2022 11:50-0400 Heart rate 84 /min Fadi P House Work Phone: [facility] [facility] DO Work Phone: 03-07-2022 11:50-0400 Systolic blood pressure 100 mm[Hg] Fadi P House Work Phone: [facility] [facility] DO Work Phone: 02-14-2022 14:41-0400 Body height 167.64 cm Fadi P House Work Phone: [facility] DO Work Phone: 02-14-2022 14:41-0400 Body mass index (BMI) [Ratio] 36.64 kg/m2 Fadi P House Work Phone: [facility] [facility] DO Work Phone: 02-14-2022 14:41-0400 Body surface area Derived from formula 2.11 m2 Fadi P House Work Phone: [facility] [facility] DO Work Phone: 02-14-2022 14:41-0400 Body weight 102.97 kg Fadi P House Work Phone: [facility] [facility] DO Work Phone: 02-14-2022 14:41-0400 Diastolic blood pressure 90 mm[Hg] Fadi P House Work Phone: [facility] DO Work Phone: 02-14-2022 14:41-0400 Heart rate 84 /min Fadi P House Work Phone: [facility] [facility] DO Work Phone: 02-14-2022 14:41-0400 Systolic blood pressure 160 mm[Hg] Fadi P House Work Phone: [facility] DO Work Phone: 02-14-2022 14:41-0400 8 1 Fadi P House Work Phone: [facility] DO Work Phone: Comment on above: PHQ-9 TS 02-06-2022 12:00-0400 Body height 170.18 cm Tondra Mapus Other [employer] Other 02-06-2022 12:00-0400 Body mass index (BMI) [Ratio] 36.33 kg/m2 Tondra Mapus Other [employer] Other 02-06-2022 12:00-0400 Body weight 105.24 kg Tondra Mapus Other [employer] Other 01-22-2022 11:15-0400 Body height 170.18 cm Tondra Mapus Other [employer] Other 01-22-2022 11:15-0400 Body mass index (BMI) [Ratio] 36.65 kg/m2 Tondra Mapus Other [employer] Other 01-22-2022 11:15-0400 Body weight 106.14 kg Tondra Mapus Other [employer] Other 01-22-2022 11:15-0400 Diastolic blood pressure 84 mm[Hg] Tondra Mapus Other [employer] Other 01-22-2022 11:15-0400 Respiratory rate 20 /min Tondra Mapus Other [employer] Other 01-22-2022 11:15-0400 SaO2% (BldA) [Mass fraction] 99 % Tondra Mapus Other [employer] Other 01-22-2022 11:15-0400 Systolic blood pressure 136 mm[Hg] Tondra Mapus Other [employer] Other 01-19-2022 15:45-0400 Body height 170.18 cm Fadi P House Work Phone: [employer] 250 DO Work Phone: 01-19-2022 15:45-0400 Diastolic blood pressure 106 mm[Hg] Fadi P House Work Phone: [employer] DO Work Phone: 01-19-2022 15:45-0400 Heart rate 76 /min Fadi P House Work Phone: [facility] DO Work Phone: 01-19-2022 15:45-0400 Systolic blood pressure 184 mm[Hg] Fadi P House Work Phone: [facility] DO Work Phone: 01-19-2022 15:45-0400 12 1 Fadi P House Work Phone: [facility] DO Work Phone: Comment on above: PHQ-9 TS 01-12-2022 11:50-0400 Body temperature 97.5 [degF] DO Fadi [employer] Work Phone: [facility] 01-12-2022 11:50-0400 Diastolic blood pressure 91 mm[Hg] DO Fadi [employer] Work Phone: [facility] 01-12-2022 11:50-0400 Heart rate 82 /min DO Fadi House Work Phone: [facility] 01-12-2022 11:50-0400 Respiratory rate 20 /min DO Fadi House Work Phone: [facility] 01-12-2022 11:50-0400 SaO2% (BldA) [Mass fraction] 98 % DO Fadi House Work Phone: [facility] 01-12-2022 11:50-0400 Systolic blood pressure 151 mm[Hg] DO Fadi House Work Phone: [facility] 01-12-2022 05:51-0400 Body weight 104.8 kg DO Fadi House Work Phone: [facility] 01-11-2022 15:11-0400 Body height 167.64 cm DO Fadi House Work Phone: [facility] 01-11-2022 11:13-0400 Inhaled oxygen flow rate 2.5 L/min DO Fadi [employer] Work Phone: [facility] 01-10-2022 22:17-0400 Body mass index (BMI) [Ratio] 37.1 kg/m2 DO Fadi Tenorio Work Phone: [facility] 01-10-2022 20:30-0400 Diastolic blood pressure 72 mm[Hg] DO Fadi Tenorio Work Phone: [facility] 01-10-2022 20:30-0400 Heart rate 90 /min DO Fadi Tenorio Work Phone: [facility] 01-10-2022 20:30-0400 Respiratory rate 18 /min DO Fadi Tenorio Work Phone: [facility] 01-10-2022 20:30-0400 SaO2% (BldA) [Mass fraction] 96 % DO Fadi Tenorio Work Phone: [facility] 01-10-2022 20:30-0400 Systolic blood pressure 151 mm[Hg] DO Fadi Tenorio Work Phone: [facility] 01-10-2022 13:34-0400 Body height 167.64 cm DO Fadi Tenorio Work Phone: [facility] 01-10-2022 13:34-0400 Body mass index (BMI) [Ratio] 37.1 kg/m2 DO Fadi Tenorio Work Phone: [facility] 01-10-2022 13:34-0400 Body temperature 97.8 [degF] DO Fadi Tenorio Work Phone: [facility] 01-10-2022 13:34-0400 Body weight 104.32 kg DO Fadi Tenorio Work Phone: [facility] 01-02-2022 14:30-0400 Body height 170.18 cm Agus Pedroza Other [facility] [employer] Other 01-02-2022 14:30-0400 Diastolic blood pressure 88 mm[Hg] Agus Pedroza Other [employer] Other 01-02-2022 14:30-0400 SaO2% (BldA) [Mass fraction] 99 % Agus Pedroza Other [employer] Other 01-02-2022 14:30-0400 Systolic blood pressure 120 mm[Hg] Agus Pedroza Other [employer] Other 08-29-2021 15:30-0500 Body height 170.18 cm Nury Martin Other [employer] Other 07-10-2021 14:00-0400 Body height 170.18 cm [facility] [employer] Other [employer] Other 07-10-2021 14:00-0400 Diastolic blood pressure 80 mm[Hg] [facility] [employer] Other [employer] Other 07-10-2021 14:00-0400 SaO2% (BldA) [Mass fraction] 99 % [facility] [employer] Other [employer] Other 07-10-2021 14:00-0400 Systolic blood pressure 130 mm[Hg] [facility] [employer] Other [employer] Other 12-29-2020 08:20-0400 Pulse (Heart Rate) 85 /min [employer] Phone: 12-29-2020 08:10-0400 Body Temperature 98.1 [degF] [employer] Phone: 12-29-2020 08:10-0400 BP Diastolic 79 mm[Hg] [employer] Phone: 12-29-2020 08:10-0400 BP Systolic 155 mm[Hg] [employer] Work Phone: 12-29-2020 08:10-0400 Pulse Oximetry 100 % [employer] Phone: 12-29-2020 08:10-0400 Respiratory Rate 18 /min [employer] Work Phone: 12-28-2020 11:45-0400 BMI (Body Mass Index) 47.45 kg/m2 [employer] Work Phone: 12-28-2020 11:45-0400 Body weight 133.36 kg [employer] Phone: 12-28-2020 11:45-0400 Height 167.6 cm [employer] Work Phone: Encounters Encounter Date Encounter Type Care Provider Facility Start: 12-05-2023 ambulatory FADI Hays y:[facility] Start: 11-06-2023 ambulatory UNKNOWN PROVIDER Facili ty:[facility] Start: 09-17-2023 End: 09-17-2023 ambulatory Agus Pedroza Other [employer] Other Start: 09-17-2023 Office outpatient vi sit 15 minutes Agus Pedroza [facility] Start: 09-17-2023 End: 09-17-2023 Patient encounter procedure [facility] Work Phone: Start: 09-11-2023 End: 09-12-2023 ambulatory UNKNOWN PROVIDER Facility:[facility] Start: 09-11-2023 End: 09-11-2023 Office outpatient visit 15 minutes Demetri Frank MD Work Phone: [facility] Comment on above: 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, unspecified proliferative retinopathy type (HCC) (Primary Dx) Start: 08-28-2023 End: 08-29-2023 ambulatory FADI TENORIO Facility:[facility] Start: 08-02-2023 End: 08-03-2023 ambulatory Radha Bell Facility:[facility] Start: 08-02-2023 End: 08-03-2023 Evaluation and management of inpatient DO Christopher Chase Work Phone: [facility] Work Phone: Start: 08-02-2023 End: 08-03-2023 observation encounter DO Christopher Chase Work Phone: [facility] Work Phone: Start: 08-02-2023 Non-patient / Non-visit DO Ramos on Chase Work Phone: [facility] Start: 07-25-2023 End: 07-26-2023 ambulatory FADI TENORIO Facility:[facility] Start: 07-24-2023 End: 07-24-2023 ambulatory UNKNOWN PROVIDER Facility:[facility] Start: 07-24-2023 End: 07-24-2023 Office outpatient visit 15 minutes Demetri Frank MD Work Phone: [facility] Comment on above: 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, unspecified proliferative retinopathy type (HCC) (Primary Dx) Start: 2023 End: 07-12-2023 ambulatory Remi Iyer MD Facility:[facility] Start: 06-26-2023 End: 09-25-2023 ambulatory UNKNOWN PROVIDER Facility:[facility] Start: 06-26-2023 End: 06-26-2023 Office outpatient visit 15 minutes Demetri Frank MD Work Phone: [facility] Comment on above: 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, unspecified proliferative retinopathy type (HCC) (Primary Dx) Start: 06-20-2023 End: 06-20-2023 ambulatory Tondra Mapus Other [employer] Other Start: 06-20-2023 Telephone encounter Tondra Mapus [facility] Start: 05-21-2023 End: 05-21-2023 ambulatory Agus Pedroza Other [employer] Other Start: 05-21-2023 Office outpatient ne w 30 minutes Agus Pedroza [facility] Start: 05-07-2023 End: 05-07-2023 ambulatory Tondra Shayneus Other [employer] Other Start: 05-07-2023 Telephone encounter Tondra Das [facility] Start: 04-16-2023 End: 04-18-2023 Evaluation and management of inpatient Fadi Tenorio Facility:[facility] Start: 04-15-2023 End: 04-18-2023 Evaluation and management of inpatient DO Fadi Coby Work Phone: [facility] [place] [facility] Work Phone: Start: 04-11-2023 End: 04-11-2023 ambulatory Eliud Eve Other [employer] Other Start: 04-11-2023 Telephone encounter Eliud Eve [facility] Start: 04-10-2023 End: 04-10-2023 ambulatory Eliud Eve Other [employer] Other Start: 04-10-2023 Telephone encounter Eliud Eve [facility] Start: 03-03-2023 End: 03-09-2023 Evaluation and management of inpatient DR MURRAY YEBOAH Facility:[facility] Start: 02-04-2023 Rx Renewal Fadi P Hous e Work Phone: [facility] [facility] DO Work Phone: Start: 01-31-2023 End: 01-31-[address] FADI TENORIO Facility:[facility] Start: 01-21-2023 End: 01-21-2023 ambulatory Tondra Mapus Other [employer] Other Start: 01-21-2023 Telephone encounter Tondra Mapus [facility] Start: 01-15-2023 End: 01-16-2023 ambulatory Fadi Steele [facility] Other Start: 01-15-2023 Telephone encounter Tondra Mapus [facility] Start: 01-11-2023 End: 01-11-2023 ambulatory Tondra Mapus Other [employer] Other Start: 01-11-2023 Telephone encounter Tondra Mapus [facility] Start: 01-01-2023 End: 01-01-2023 ambulatory UNKNOWN PROVIDER [facility] Other Start: 01-01-2023 Telephone encounter Tondra Mapus [facility] Start: 12-19-2022 End: 12-19-2022 ambulatory UNKNOWN PROVIDER Facility:[facility] Start: 12-19-2022 End: 12-19-2022 Office outpatient visit 15 minutes Demetri Frank MD Work Phone: [facility] Comment on above: 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, unspecified proliferative retinopathy type (HCC) (Primary Dx) Start: 10-17-2022 End: 10-17-2022 Office outpatient visit 15 minutes Demetri Frank MD Work Phone: [facility] Comment on above: 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, unspecified proliferative retinopathy type (HCC) (Primary Dx) Start: 10-03-2022 End: 10-04-2022 Evaluation and management of inpatient DR FADI TENORIO Facility: Start: 10-01-2022 End: 10-01-2022 ambulatory Tondra Mapus Other [employer] Other Start: 10-01-2022 Telephone encounter Tondra Mapus [facility] Start: 09-03-2022 End: 09-03-2022 ambulatory VJ HADDAD II Facility:[facility] Start: 09-03-2022 Encounter for genera l adult medical examination without abnormal findings VJ HADDAD II [facility] Start: 09-03-2022 End: 09-03-2022 Patient encounter procedure Vj Haddad OD Work Phone: Optometry Comment on above: Disability examinati on (Primary Dx); 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, unspecified whether termite technician insulin use (HCC); Type 2 diabetes mellitus with proliferative diabetic retinopathy of left eye without macular edema, unspecified whether termite technician insulin use (HCC); Myopia, bilateral; Regular astigmatism, bilateral; Presbyopia Start: 08-28-2022 End: 08-28-2022 ambulatory Tondra Mapus Other [employer] Other Start: 08-28-2022 Telephone encounter Tondra Mapus Fir [facility] Start: 08-27-2022 End: 08-27-2022 ambulatory Tondra Mapus Other [employer] Other Start: 08-27-2022 Telephone encounter Tondra Mapus Fir [facility] Start: 08-16-2022 End: 08-16-2022 ambulatory Tondra Mapus Other [employer] Other Start: 08-16-2022 Telephone encounter Tondra Mapus Fir [facility] Start: 07-31-2022 End: 07-31-[address] FADI TENORIO Facility: Start: 05-16-2022 (DM) Diabetes Tondra Mapus [facility] Start: 05-16-2022 End: 05-16-2022 ambulatory Tondra Mapus Other [employer] Other Start: 04-21-2022 End: 04-22-2022 Emergency department patient visit DO Fadi Tenorio Work Phone: [facility] Start: 04-18-2022 End: 04-18-2022 ambulatory Tondra Mapus Other [employer] Other Start: 04-18-2022 Telephone encounter Tondra Mapus [facility] Start: 03-21-2022 End: 03-21-2022 Office outpatient visit 15 minutes Demetri Frank MD Work Phone: [facility] Comment on above: 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, unspecified proliferative retinopathy type (HCC) (Primary Dx) Start: 03-13-2022 End: 03-13-2022 ambulatory Tondra Mapus Other [employer] Other Start: 03-13-2022 Telephone encounter Tondra Mapus [facility] Start: 03-08-2022 Registered Recurring DO Carlos A ahmadi House Work Phone: [facility] Start: 03-08-2022 (RD) Chimney Repairer Jazzmine Dukes [facility] Start: 03-08-2022 End: 03-08-2022 ambulatory Jazzmine Dukes Other [employer] Other Start: 03-07-2022 End: 03-07-2022 ambulatory Tondra Mapus Other [employer] Other Start: 03-07-2022 Telephone encounter Tondra Mapus [facility] Start: 03-07-2022 Office outpatient vi sit 15 minutes Fadi Neves House Work Phone: [facility] 250 DO Work Phone: Start: 02-19-2022 End: 02-19-2022 ambulatory Tondra Mapus Other [employer] Other Start: 02-19-2022 Telephone encounter Tondra Mapus [facility] Start: 02-14-2022 End: 02-14-2022 ambulatory Tondra Mapus Other [employer] Other Start: 02-14-2022 Telephone encounter Tondra Mapus [facility] Start: 02-12-2022 Telephone encounter Agustin arzate MD Work Phone: [facility] Comment on above: Other sympt/complt o f eye Start: 02-06-2022 End: 02-06-2022 ambulatory Tondra Mapus Other [employer] Other Start: 02-06-2022 Nursing evaluation o f patient and report Tondra Mapus [facility] Start: 02-06-2022 Registered Recurring DO Carlos A s House Work Phone: [facility] Start: 01-26-2022 End: 01-26-2022 ambulatory Tondra Mapus Other [employer] Other Start: 01-26-2022 Nursing evaluation o f patient and report Tondra Mapus [facility] Start: 01-22-2022 (DM) Diabetes Tondra Mapus [facility] Start: 01-22-2022 End: 01-22-2022 ambulatory Tondra Mapus Other [employer] Other Start: 01-19-2022 Tobacco use cessatio n intermediate 3-10 minutes Fadi P House Work Phone: [facility] 250 DO Work Phone: Start: 01-11-2022 End: 01-12-2022 Evaluation and management of inpatient DO Fadi House Work Phone: [facility] [place] [facility] Start: 01-10-2022 End: 01-12-2022 Evaluation and management of inpatient DO Fadi House Work Phone: [facility] [place] [facility] Start: 01-02-2022 End: 01-02-2022 ambulatory Agus Pedroza Other [facility] Other Start: 01-02-2022 Office outpatient vi sit 10 minutes Agus Pedroza [facility] Start: 08-29-2021 End: 08-29-2021 ambulatory Nury Ginty Other [employer] Other Start: 08-29-2021 Office outpatient vi sit 15 minutes Nury Ginty [facility] Start: 08-09-2021 End: 08-09-2021 ambulatory Ton Mapus Other [employer] Other Start: 08-09-2021 Telephone encounter Tona Thigao [facility] Start: 07-21-2021 End: 07-21-2021 ambulatory Tondra Mapus Other [employer] Other Start: 07-21-2021 Telephone encounter Tondra Shayneus [facility] Start: 07-20-2021 FQ visit new patient Mika Das [facility] Start: 07-10-2021 Office outpatient vi sit [address] [facility] Start: 12-28-2020 End: 12-29-2020 Evaluation and management of inpatient SR FADI TENORIO [facility] Start: 12-28-2020 End: 12-28-2020 Patient encounter procedure AARON FRIEND [facility] Start: 12-28-2020 End: 12-29-2020 Evaluation and management of inpatient Kole Koehler Work Phone: [facility] Telemetry Comment on above: Peripheral vascular occlusive disease (HCC) (Primary Dx); Renal insufficiency Start: 12-28-2020 End: 12-28-2020 Subsequent hospital visit by physician Aaron Friend Work Phone: Cardiac Cath Services Comment on above: Arrived Start: 12-20-2020 End: 12-23-2020 Patient encounter procedure SELENEYOKO FRIEND [facility] Start: 12-20-2020 End: 12-22-2020 Subsequent hospital visit by physician [address] Room [facility] [address] Scan Comment on above: 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) Start: 01-08-2019 End: 01-08-2019 Patient encounter procedure Fatoumata AmadaCirilo Tirado Facility:[facility] Start: 12-30-2018 End: 12-31-2018 Patient encounter procedure Fatoumata AmadaCirilo Tirado Facility:[facility] Procedures Date Procedure Procedure Detail Performing Clinician [...] and pe lvis without contrast DO Fadi Steele Work Phone: Start: 01-08-2023 Computerized ophthal yomi imaging retina Maddie Lau MD Work Phone: Start: 01-01-2023 End: 01-08-2023 Oph medical xm&eval comprhnsv estab pt 1/> Diabetes mellitus with insulin therapy (HCC) 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 Comment on above: Diabetes mellitus wi th [...] 01-11-2022 CL LHC & COR Angio DO [facility] Work Phone: Start: 01-10-2022 Duplex scan of lower limb veins DO [facility] Work Phone: Start: 01-10-2022 CT of head without contrast DO [facility] Work Phone: Start: 01-10-2022 SARS Antigen (LFIA) DO [facility] Work Phone: Start: 01-10-2022 Plain chest X-ray DO [facility] Work Phone: Start: 12-29-2020 Gluc bld gluc mntr d ev cleared fda spec home use Unknown Provider Result Start: 12-29-2020 WOUND OSTOMY EVAL AND TREAT [facility] Galarza Work Phone: Start: 12-29-2020 Gluc bld gluc mntr d ev cleared fda spec home use Unknown Provider Result Start: 12-29-2020 Blood count complete auto&auto difrntl wbc [facility] Work Phone: Start: 03-17-2021 Gluc bld gluc mntr d ev cleared fda spec home use Unknown Provider Result Start: 12-28-2020 Antibody screen Kole R omito Start: 12-28-2020 COVID-19, RAPID Cece Chauhan Work [...] 12-20-2020 Cta abdl aorta&bi il iofem w/contrast&postp Lleariannaell Phuc Work Phone: Start: 12-20-2020 POCT VENOUS Unknown Pr ovider Result Start: 01-13-2019 Anesthesia consultation Fatoumata Tirado Start: 01-08-2019 Anesthesia consultation Fatoumata Tirado Start: 10-14-2011 Total colonoscopy Charl guille [employer] Work Phone: Amputation of lower limb Neeta rlguille P [employer] Work Phone: Placement of stent i n coronary artery Fadi Neves [employer] Work Phone: Surgical procedure Fadi Edinson [employer] Work Phone: Plan of Treatment Date Care Activity Detail Author Start: 04-09-2026 DTaP/Tdap/Td vaccine (2 - Td) DTaP/Tdap/Td vaccine (2 - Td) [employer] Work Phone: Start: 04-09-2026 Tetanus vaccination [facility] Start: 12-14-2024 LIPID SCREEN LIPID SCREEN [facility] Start: 11-06-2024 Glaucoma screening [facility] Start: 09-11-2024 Glaucoma screening [facility] Start: 08-03-2024 Creatinine measurement Basic Metabol ic Panel [facility] Start: 08-02-2024 Lipid panel [facility] Start: 07-24-2024 Diabetic retinal eye exam Eye Exam [facility] Start: 06-06-2024 Creatinine measurement Basic Metabol ic Panel [facility] Start: 05-27-2024 Lipid panel [facility] Start: 02-21-2024 Diabetic retinal eye exam Eye Exam [facility] Start: 02-01-2024 Hemoglobin A1c measurement Hemoglobin A1C [facility] Start: 12-20-2023 Diabetic retinal eye exam [facility] Start: 11-29-2023 Hemoglobin A1c measurement Hemoglobin A1C [facility] Start: 11-06-2023 End: 11-06-2023 Patient encounter procedure 11/06/2023 3:00 PM EST Office Visit [facility] [address] [place] [address] Demetri Frank MD [address] [place] [address] Hat Maker, Eye [facility] Start: 10-17-2023 Diabetic retinal eye exam [facility] Start: 09-11-2023 End: 09-11-2023 Patient encounter procedure 09/11/2023 3:00 PM EST Office Visit [facility] [address] [place] [address] Demetri Frank MD [address] [place] [address] Hat Maker, Eye [facility] Start: 08-06-2023 Basic metabolic 2000 panel - Serum or Plasma Basic Metabolic Panel [facility] Start: 08-03-2023 Patient status observation [facility] Start: 08-03-2023 Patient discharge [place] Start: 08-02-2023 Bacteria identified in Blood by Culture Blood Culture [facility] Start: 08-02-2023 Microbial culture Blood Culture [facility] Start: 08-02-2023 Evaluation procedure [facility] Start: 08-02-2023 Hospital admission [facility] Start: 08-02-2023 [facility] Start: 08-02-2023 [facility] Start: 08-02-2023 EKG 12 channel panel [facility] Start: 08-02-2023 Administrative procedure [facility] Start: 06-14-2023 Influenza vaccination Influenza Vacc ine (#1) [facility] Start: 04-18-2023 [facility] Start: 04-18-2023 [facility] Start: 04-16-2023 Referral to perianesthesia rn [facility] Start: 04-16-2023 Hospital admission [facility] Start: 04-15-2023 Sleep disorder assessment [facility] Start: 04-03-2023 Hemoglobin A1c measurement Hemoglobin A1C [facility] Start: 03-21-2023 Diabetic retinal eye exam Eye Exam [facility] Start: 02-20-2023 End: 02-20-2023 Patient encounter procedure 02/20/2023 Office Visit Ophthalmology Demetri Frank MD [address] [place] [place] [id number] [employer], [facility] Start: 01-11-2023 Lipid panel Lipid Profile [facility] Start: 10-20-2022 Diabetic retinal eye exam Eye [facility]am [facility] Start: 07-28-2022 Basic metabolic 2000 panel - Serum or Plasma Basic Metabolic Panel [facility] Start: 07-14-2022 Influenza vaccination Influenza Vacc ine (#1) [facility] Start: 07-13-2022 Hemoglobin A1c measurement Hemoglobin A1C [facility] Start: 06-14-2022 Influenza vaccination INFLUENZA (#1) [facility] Start: 05-02-2022 End: 05-02-2022 Patient encounter procedure 05/02/2022 Office Visit Ophthalmology Demetri Frank MD [address] [place] [address] [employer] Maker, Eye [facility] Start: 04-21-2022 Plain chest X-ray XR chest 2V* [facility] Start: 04-18-2022 FUV, Provider: Aicha Terrazas, Status: Pen, Time: 2:30 PM FUV, Provider: Aicha Terrazas, Status: Pen, Time: 2:30 PM [facility] 250 DO Work Phone: Start: 03-21-2022 End: 03-21-2022 Patient encounter procedure 03/21/2022 Office Visit Ophthalmology Demetri Frank MD [address] [place] [address] [facility] Start: 02-12-2022 FUV, Provider: Aicha Terrazas, Status: Pen, Time: 1:00 PM FUV, Provider: Aicha Terrazas, Status: Pen, Time: 1:00 PM [facility] 250 DO Work Phone: Start: 01-20-2022 Hemoglobin A1c measurement Hemoglobin A1C [facility] Start: 01-10-2022 Duplex scan of lower limb veins US venous duplex LE BI [facility] Start: 01-10-2022 Fluoroscopy of Left Heart using Low Osmolar Contrast Fluoroscopy of Left Heart using Low Osmolar Contrast [facility] Start: 01-10-2022 Fluoroscopy of Multi ple Coronary Arteries using Low Osmolar Contrast Fluoroscopy of Multiple Coronary Arteries using Low Osmolar Contrast [facility] Start: 01-10-2022 Measurement of Cardi ac Sampling and Pressure, Left Heart, Percutaneous Approach Measurement of Cardiac Sampling and Pressure, Left Heart, Percutaneous Approach [facility] Start: 12-29-2021 Creatinine measurement Creatinine mo nitoring [facility] Work Phone: Start: 12-29-2021 Potassium monitoring Potassium monit [facility] Work Phone: Start: 10-14-2021 DEPRESSION ASSESSMENT DEPRESSION [facility] Start: 2021 Measurement of occul t blood in single stool specimen FIT [facility] Start: 2021 Screening for malign ant neoplasm of colon [facility] Start: 2021 Shingles (RZV) Vacci ne (1 of 2) Shingles (RZV) Vaccine (1 of 2) [facility] Start: 2021 SHINGRIX VACCINE (1 of 2) SHINGRIX VACCINE (1 of 2) [facility] Start: 12-28-2020 End: 12-28-2020 Appointment 12/28/2020 Appointment IP Unit [facility] Start: 12-14-2020 Lipid panel Lipid Profile [facility] Start: 2016 COLOGUARD (FIT-DNA) COLOGUARD (FIT-D NA) [facility] Start: 2016 Colonoscopy COLONOSCOPY [facility] Start: 2016 COLORECTAL CANCER SCREENING COLORECTAL CANCER SCREENING [facility] Start: [address] COLONOGRAPHY [facility] Start: 2016 DIABETES SCREEN DIABETES SCREEN [facility] Start: 2016 FECAL OCCULT BLOOD FECAL OCCULT BLOO D [facility] Start: 2016 Screening for malign ant neoplasm of colon [facility] Start: 2016 SIGMOIDOSCOPY SIGMOIDOSCOPY [facility] Start: 2011 Diabetes screen Diabetes screen [facility] Work Phone: Start: 2011 Lipid panel Lipid screen [facility] Work Phone: Start: 1990 Hepatitis B vaccination Hepati tis B (HBV) Vaccine (1 of 3 - Risk 3-dose series) [facility] Start: 1990 Urine microalbumin profile DTAP,TDAP,TD (1 - Tdap) [facility] Start: 1989 Hepatitis C screening Hepatitis C An tibody [facility] Start: 1989 HEPATITIS C SCREENING HEPATITIS C SC REENING [facility] Start: 1989 HIV SCREENING HIV SCREENING [facility] Start: 1986 HIV screening [facility] Start: 1981 Lipid panel Lipid screen [facility] Work Phone: Start: 1977 PNEUMOCOCCAL (1 - PCV) PNEUMOCOCCAL (1 - PCV) [facility] Start: 1977 Pneumococcal vaccination Pneum ococcal Vaccine(s) (1 - PCV) [facility] Start: 1976 COVID-19 Vaccine (#1) COVID-19 Vacci ne (#1) [facility] Start: 1976 COVID-19 Vaccine (1) COVID-19 Vaccin e (1) [facility] Start: 01-09-1972 COVID-19 VACCINE (#1) COVID-19 VACCI NE (#1) [facility] Start: 1971 Urine screening for protein Microalbumin [facility] Start: 1971 Diabetic foot examination Foot Exam [facility] Start: 1971 HEPATITIS B (1 of 3 - 3-dose series) HEPATITIS B (1 of 3 - 3-dose series) [facility] Start: 1971 Hepatitis B vaccination Hepati tis B (HBV) Vaccine (1 of 3 - 3-dose series) [facility] Start: 1971 [facility] [employer] Work Phone: Start: 1971 Screening for malign ant neoplasm of colon Colonoscopy [facility] Bacteria identified in Unspecified specimen by Anaerobe+Aerobe culture [facility] End: 12-28-2020 Basic metabolic 2000 panel Basic Metabolic Panel Lab Routine One Time for 1 Occurrences starting 12/28/2020 until 12/28/2020 [employer] Phone: Comment on above: One Time for 1 Occur rences starting 12/28/2020 until 12/28/2020 End: 12-28-2020 Catheterization and angiography procedure details panel Diagnostic Cardiac Thickener Operator Procedure Cardiac Cath Routine One Time for 1 Occurrences starting 12/28/2020 until 12/28/2020 [employer] Phone: Comment on above: One Time for 1 Occur rences starting 12/28/2020 until 12/28/2020 End: 12-28-2020 CBC CBC Lab Routine One Time for 1 Occurrences starting 12/28/2020 until 12/28/2020 [employer] Phone: Comment on above: One Time for 1 Occur rences starting 12/28/2020 until 12/28/2020 Glucose measurement estimated from glycated hemoglobin [facility] [employer] Work Phone: Hemoglobin A1c/Hemoglobin.total in Blood [facility] [employer] Work Phone: IgA [Mass/volume] in Serum or Plasma [facility] IgG [Mass/volume] in Serum or Plasma [facility] IgM [Mass/volume] in Serum or Plasma [facility] Immunofixation for Urine Fir [facility] Angelica light chains.f ree [Mass/volume] in Serum [facility] Angelica light chains.free/Lambda light chains.free [Mass Ratio] in Serum [facility] Lambda light chains. 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 to underlying condition (HCC) 01/01/2023 5:57 PM EDT [employer] Work Phone: Oxygen therapy [[facility] Data Set] Initiate Oxygen Therapy Protocol Respiratory Care Routine Daily until discontinued starting 12/28/2020 [employer] Work Phone: Comment on above: Daily until disconti nued starting 12/28/2020 Patient Education [facility] Work Phone: Patient referral [facility] Work Phone: End: 12-20-2020 POCT Creatinine POCT Creatinine Point of Care Testing Routine One Time for 1 Occurrences starting 12/20/2020 until 12/20/2020 [employer] Work Phone: Comment on above: One Time for 1 Occur rences starting 12/20/2020 until 12/20/2020 POCT Glucose [facility] Work Phone: Comment on above: As Needed until disc ontinued starting 12/28/2020 4X Daily (AC & HS) u ntil discontinued starting 12/28/2020 Serum immunofixation [facility] Thyrotropin [Units/volume] in Serum or Plasma [facility] Work Phone: Troponin I.cardiac [Mass/volume] in Serum or Plasma by High sensitivity method [facility] Work Phone: End: 12-28-2020 TYPE AND SCREEN TYPE AND SCREEN Blood Bank Routine One Time for 1 Occurrences starting 12/28/2020 until 12/28/2020 [employer] Work Phone: Comment on above: One Time for 1 Occur rences starting 12/28/2020 until 12/28/2020 Immunizations Immunization Date Immunization Notes Care Provider Fa [facility] 08-02-2023 Hemoglobin A1C Demetri garland MD Work Phone: [facility] 05-29-2023 Hemoglobin A1C Demetri garland MD Work Phone: [facility] 10-03-2022 Hemoglobin A1C Demetri garland MD Work Phone: [facility] 05-16-2022 Hemoglobin A1C Demetri garland MD Work Phone: [facility] 01-10-2022 Hemoglobin A1C Demetri garland MD Work Phone: [facility] 07-22-2021 Hemoglobin A1C Agustin Hampton MD Work Phone: [facility] 10-14-2020 influenza, injectabl e, quadrivalent, contains preservative Agustin Hampton MD Work Phone: [facility] 10-14-2020 influenza virus vaccine, unspecified formulation Demetri Frank MD Work Phone: [facility] 10-01-2020 influenza, injectabl e, quadrivalent, preservative free Fadi P Steele Work Phone: [facility] 250 DO Work Phone: 12-23-2019 Influenza, injectabl e, Madin [place] Canine Kidney, preservative free, quadrivalent DO Fadi Steele Work Phone: [facility] 04-09-2016 tetanus toxoid, reduced diphtheria toxoid, and acellular pertussis vaccine, adsorbed Fadi P [employer] Work Phone: [facility] Payers Date Payer Category Payer Medicare [id number] 2023 Medicare [id number] 2022 Unknown 2021 Self-pay [id number] 2020 Medicaid [id number] 2018 Private Health Insurance [id number] 1971 Unknown [id number] 1971 Unknown [id number] 0.1.034589.3.579.2.727 1970 Unknown [id number] 2.16.8 40.1.808603.3.579.2.182 1970 Unknown [id number] 2.16.8 40.1.738720.3.579.2.182 1971 Unknown [id number] 2.16.8 40.1.645829.3.579.2.182 1971 Unknown [id number] 2.16.84 0.1.107239.3.579.2.593 1971 Unknown [id number] 2.16.84 0.1.862988.3.579.2.593 1971 Unknown [id number] 2.16.84 0.1.531511.3.579.2.593 1971 Unknown [id number] 2.16.84 0.1.151999.3.579.2.593 1971 Unknown [id number] 2.16. 840.1.626727.3.579.2.732 1971 Unknown [id number] 2.16. 840.1.185429.3.579.2.732 1971 Unknown [id number] 2.16. 840.1.362466.3.579.2.732 1971 Unknown [id number] 2.16. 840.1.926946.3.579.2.732 1971 Unknown [id number] 2.16. 840.1.289468.3.579.2.732 1971 Unknown [id number] 2.16. 840.1.868102.3.579.2.732 1971 Unknown [id number] 2.16.8 40.1.349161.3.579.2.718 1971 Unknown [id number] 2.16.8 40.1.242706.3.579.2.718 1971 Unknown [id number] 2.16.8 40.1.760690.3.579.2.718 1958 Private Health Insurance [id number] 1.2.840.467742.1.13.239.2.7.3.680007.315 1959 Unknown [id number] Unknown [id number] Unknown [id number] 2.16 840.1.713516.3.579.2.1149 Unknown [id number] 2.16 840.1.129632.3.579.2.1149 Unknown [id number] 2. 840.1.847517.3.579.2.1149 Unknown [id number] 2.16 840.1.088518.3.579.2.1149 Unknown [id number] 2.16.8 40.1.509471.3.579.2.531 Unknown [id number] 2.16.8 40.1.240383.3.579.2.531 Social History Date Type Detail Facility Start: 12-20-2020 Tobacco smoking status DEIS Unknown if ever smoked [facility] Start: 1970 Sex Assigned At Not on file [facility] [employer] Work Phone: Start: 08-24-2022 End: 09-03-2022 Exposure to SARS-CoV-2 (event) Not sure [employer] Phone: Start: 12-28-2020 End: 04-21-2022 Tobacco smoking status NHIS Former smoker [facility] Start: 12-28-2020 End: 09-03-2022 Tobacco use and exposure Never used [employer] Phone: Start: 12-28-2020 End: 09-03-2022 Alcohol intake Ex-drinker (finding) [employer] Phone: Start: 01-10-2022 End: 04-17-2023 Tobacco smoking status NHIS Smoker (finding) [facility] Start: 1970 Sex Assigned At Male F [facility] No illicit drug use No illicit drug use [facility] [employer] DO Work Phone: Comment on above: coffee 1 big gulp - pop 4 daily; 1/2 ppd; Sex Assigned At [employer] Other Start: 09-03-2022 Tobacco smoking status NHIS Smokes tobacco daily [facility] History of tobacco use Cigarette Smoker [facility] Start: 08-02-2023 Tobacco smoking status NHIS Never smoker [facility] Start: 08-02-2023 Tobacco smoking status DEIS Current every day smoker [facility] Medical Equipment Procedure Code Equipment Code Equipment Origin al Text Equipment Identifier Dates USE WITH INSULIN FIVE TIMES DAILY AND NEEDED [id number] Start: 10-23-2020 TEST FIVE TIMES DAILY [id number] Start: 10-23-2020 Goals Date Patient Goal Desired Activity /State Functional Status Date Assessment Result Facility 04-18-2023 Functional status Patient at Baseline [facility] Work Phone: 02-14-2022 PHQ-9 [id number] Mild (5-9) [facility] [employer] [address] DO Work Phone: 01-19-2022 PHQ-9 [id number] Moderate (10-14) [facility] [employer] [address] DO Work Phone: 01-12-2022 Functional status Patient at Baseline [facility] Work Phone: Mental Status Date Assessment Result Facility 04-18-2023 Cognitive function Cognitive Sta tus Patient at Baseline [facility] Work Phone: 01-12-2022 Cognitive function Cognitive Sta tus Patient at Baseline [facility] Work Phone: Clinical Notes 07-10-2021 to 10-17-2023 Note Date & Type Note Facility 10-17-2023 Note Entered by MURRAY TENORIO DO on October 17, 2023 16:37:15 EST From: FADI TENORIO DO To: [place] [facility] [place] Sent: 10/17/2023 16:37:15 EST Subject: Medication Management Submitted: Complete:tamsulosin (tamsulosin 0.4 mg oral capsule) Signed by FADI TENORIO DO 10/17/2023 16:37:00 EST Submitted: Complete:bumetanide (bumetanide 2 mg oral tablet) Signed by FADI TENROIO DO 10/17/2023 16:37:00 EST Submitted: Complete:potassium chloride (Potassium Chloride (Xod-Ppvl-Dzk M20) 20 mEq oral tablet, extended release) Signed by FADI TENORIO DO 10/17/2023 16:37:00 EST Approved with modifications: bumetanide (Bumetanide 2MG TABS) TAKE 1 TABLET BY MOUTH TWICE A DAY BEFORE MEALS Qty: 56 tab(s) Days Supply: 28 Refills: 2 Substitutions Allowed Route To Pharmacy - [place] [facility] Note from Pharmacy: Maximum Refills Reached Approved with modifications: potassium chloride (Potassium Chloride Ria ER 20MEQ TBCR) TAKE 1 TABLET BY MOUTH EVERY MORNING Qty: 28 tab(s) Days Supply: 28 Refills: 2 Substitutions Allowed Route To Pharmacy - [place] [facility] Note from Pharmacy: Maximum Refills Reached Approved with modifications: tamsulosin (Tamsulosin HCl 0.4MG CAPS) TAKE 1 CAPSULE BY MOUTH AT BEDTIME Qty: 28 cap(s) Days Supply: 28 Refills: 2 Substitutions Allowed Route To Pharmacy - [facility] [place] Note from Pharmacy: Maximum Refills Reached From: [facility] - To: FADI TENORIO DO Sent: October 17, 2023 3:05:41 PM TEST CENTER ADMINISTRATOR Subject: Medication Management Due: October 18, 2023 12:03:12 AM TEST CENTER ADMINISTRATOR On Hold Pending Signature Drug: bumetanide (bumetanide [...] Pending Signature Drug: potassium chloride (Potassium Chloride (Oqg-Gtty-Avw M20) 20 mEq oral tablet, extended release), TAKE 1 TABLET BY MOUTH EVERY MORNING Quantity: 28 tab(s) Days Supply: 28 Refills: 0 Substitutions Allowed Notes from Pharmacy: Maximum Refills Reached-- this med was precribed during hospital stay, please send refill if appropriate Dispensed Drug: potassium chloride (Potassium Chloride (Zre-Ivph-Igu M20) 20 mEq oral tablet, extended release), [...] Allowed Notes from Pharmacy: Maximum Refills Reached 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 Discussed diligent skin monitoring for breakdown given history of revision due to postop complications at operative site. Sep, Muscle spasm (ICD-10 - M62.838) [employer] Other 11-29-2023 History of Present illness Narrative* [...] neck no ICA stenosis - GCA symptoms NAYAK, jaw mikaela, F/C negative - rec go to ED if symptoms recur Return 8 weeks Dilate OU OCT mac OU documented in this [id number] NoteEntered by FADI TENORIO DO on August 28, 2023 09:11:44 EST From: FADI TENORIO DO To: [place] [facility] Sent: 08/28/2023 09:11:44 EST Subject: Medication Management Documented Complete:potassium chloride (Potassium Chloride (Vaj-Zetj-Oku M20) 20 mEq oral tablet, extended release) [...] Refills: 0 Substitutions Allowed Route To Pharmacy [facility] [employer] Note from Pharmacy: Maximum Refills Reached-this med was prescribed after a recent hospital stay, please send new rx if patient is to continue taking this medication- Thank you Approved bumetanide (Bumetanide 2MG TABS) TAKE 1 TABLET BY MOUTH TWICE A DAY BEFORE MEALS Qty: 56 tab(s) Days Supply: 28 Refills: 0 Substitutions Allowed Route To Pharmacy [place] [employer] Note from Pharmacy: Maximum Refills Reached- this dose was given after hospital stay, please send refill if appropriate Approved potassium chloride (Potassium Chloride Ria ER 20MEQ TBCR) TAKE 1 TABLET BY MOUTH EVERY MORNING Qty: 28 tab(s) Days Supply: 28 Refills: 0 Substitutions Allowed Route To Pharmacy - [facility] - [place] Note from Pharmacy: Maximum Refills Reached-- this med was precribed during hospital stay, please send refill if appropriate Patient matched by FADI TENORIO DO on 08/28/2023 09:11:04 EST From: [facility] - To: FADI TENORIO DO Sent: August 28, 2023 7:51:26 AM TEST CENTER ADMINISTRATOR Subject: Medication Management Due: August 29, 2023 12:10:43 AM TEST CENTER ADMINISTRATOR On Hold Pending Signature Drug: tamsulosin (tamsulosin [...] Pending Signature Drug: potassium chloride (Potassium Chloride (Zty-Kjqx-Iuv M20) 20 mEq oral tablet, extended release), TAKE 1 TABLET BY MOUTH EVERY MORNING Quantity: 28 tab(s) Days Supply: 28 Refills: 0 Substitutions Allowed Notes from Pharmacy: Maximum Refills Reached- rx sent upon discharge from recent hospital stay, please send refill if appropriate Dispensed Drug: potassium chloride (Potassium Chloride (Ubn-Tyfl-Hlp M20) 20 mEq oral tablet, extended release), TAKE 1 TABLET BY MOUTH EVERY MORNING Quantity: 28 tab(s) Days Supply: 28 Refills: 0 Substitutions Allowed Notes from Pharmacy: Maximum Refills Reached-- this med was precribed during hospital stay, please send refill if appropriate [id number] Discharge summary Author Harjeet Ruelas [facility] August 03, 2023 1:06pm Note Date/Time August 03, 2023 1 0:59am [place] [address] Discharge Summary Signed Patient: Chandler Minor MR#: [id number] : 1970 Acct: [id number] Age/Sex: 53 / M Date of Service: 08/02/23 Loc: [facility] 4828-[address]: Harjeet Ruelas M.D. cc: None,Doctor DCiriloOCirilo; Harjeet Ruelas M.D.~ Physician/JULIA Physician/JULIA Date of [...] units. Patient reports that he came to [place] to see his mom. Patient reports chronic [...] or Physician's Assistantworking with me, had a Nkrt-it-Hogb encounter. Based on my findings, the services [...] no hepatosplenomegaly, no rebound tenderness or guarding TELEVISION OPERATOR?alert oriented x3, CN II to XII [...] Lymph % (Auto) 12.2 L D Cancelled Bell % (Auto) 7.5 D Cancelled Eos % (Auto) 3.0 D Cancelled Baso % (Auto) 0.3 Cancelled Neut # (Auto) 7.89 H D Cancelled Lymph # (Auto) 1.26 D Cancelled Bell # (Auto) 0.77 D Cancelled Eos # [...] MPV Neut % (Auto) Lymph % (Auto) Bell % (Auto) Eos % (Auto) Baso % (Auto) Neut # (Auto) Lymph # (Auto) Bell # (Auto) Eos # (Auto) Baso # [...] MPV Neut % (Auto) Lymph % (Auto) Bell % (Auto) Eos % (Auto) Baso % (Auto) Neut # (Auto) Lymph # (Auto) Bell # (Auto) Eos # (Auto) Baso # [...] Breath Or Wheezing) fluticasone propionate 50 mcg/actuation Gabbs,Suspension 2 spray INTRANASAL DAILY PRN (Reason: allergies) [...] <Electronically signed by Harjeet Ruelas M.D.> 08/03/23 6705 [facility] Work Phone: 1(851) 568-919810-21-2023 [place] [id number] [place] [address] Discharge Summary Signed Patient: Chandler Minor MR#: [id number] : 1970 Acct: [id number] Age/Sex: 53 / M Date of Service: 08/02/23 Loc: [facility] 4828-[address]: Harjeet Ruelas M.D. cc: None,Doctor D.O.; Harjeet Ruelas M.D. Physician/JULIA Physician/JULIA Date of [...] units. Patient reports that he came to [place] to see his mom. Patient reports chronic [...] I, or a Nurse Practitioner or Physician's Measurement Operator working with me, had a Iigt-fg-Yrfp encounter. Based on my findings, the services [...] no hepatosplenomegaly, no rebound tenderness or guarding TELEVISION OPERATOR???alert oriented x3, CN II to XII [...] Hct 34.3 L Canc (more content not included)...[facility] 08-03-2023 Hospital Discharge instructions Additional Instructions Please make an appointment with your PCP in 1 to 2 weeks Maintain glucose levels in 160 [facility] Work Phone: 1(615) 143-623310-20-2023 Consult note Author Marcelino Abel [facility] August 02, 2023 2:46pm Note Date/Time August 02, 2023 1 1:10am [facility] Main [place] [address] [place] [address] Neurology Consult Note Signed Patient: Chandler Minor MR#: [id number] : 1970 Acct: [id number] Age/Sex: 53 / M Date of Service: 08/02/23 Loc: [facility] 4828-[address]: Helen Jovel M.D. [...] No Would like to be referred to Sales Outfitter for info?: No Smoking Status: Current every [...] 87.4 H Lymph % (Auto) 6.3 L Bell % (Auto) 3.4 L Eos % (Auto) 2.0 Baso % (Auto) 0.3 Neut # (Auto) 12.71 H Lymph # (Auto) 0.92 Bell # (Auto) 0.50 Eos # (Auto) 0.29 [...] Color Urine Appearance Urine pH Ur Specific [place] Urine Protein Urine Glucose (UA) Urine Ketones [...] MPV Neut % (Auto) Lymph % (Auto) Bell % (Auto) Eos % (Auto) Baso % (Auto) Neut # (Auto) Lymph # (Auto) Bell # (Auto) Eos # (Auto) Baso # [...] Color Urine Appearance Urine pH Ur Specific [place] Urine Protein Urine Glucose (UA) Urine Ketones [...] MPV Neut % (Auto) Lymph % (Auto) Bell % (Auto) Eos % (Auto) Baso % (Auto) Neut # (Auto) Lymph # (Auto) Bell # (Auto) Eos # (Auto) Baso # [...] Color Urine Appearance Urine pH Ur Specific [place] Urine Protein Urine Glucose (UA) Urine Ketones [...] MPV Neut % (Auto) Lymph % (Auto) Bell % (Auto) Eos % (Auto) Baso % (Auto) Neut # (Auto) Lymph # (Auto) Bell # (Auto) Eos # (Auto) Baso # [...] Appearance Clear Urine pH 5.0 Ur Specific [place] 1.015 Urine Protein 300 A Urine Glucose [...] study as part of stroke work-up PT OT/DIRECTOR UTILIZATION MANAGEMENT Patient counseled about medication compliance, DASH diet, verbalized understanding Primary on board adjusting his insulin dosage. Rest of the management per primary team Documented By: Marcelino Abel M.D. 08/02/23 1107 Signed By: <Electronically signed by Marcelino Abel M.D.> 08/02/23 0793 [facility] Work Phone: 1(215) 925-215010-20-2023 History and physical note Author Harjeet Ruelas [facility] August 02, 2023 2:16pm Note Date/Time August 02, 2023 1 1:18am [facility] [place] [address] Internal Med History&Physical Signed Patient: Chandler Minor MR#: [id number] : 1970 Acct: [id number] Age/Sex: 53 / M Date of Service: 08/02/23 Loc: [facility] 4828-[address]: Helen Jovel M.D. [...] micturition. Patient reports that he came to [place] to see his mom. Patient reports chronic [...] No Would like to be referred to Sales Outfitter for info?: No Smoking Status: Current every [...] 08/02/23 08/02/23 History mL) subcutaneous pen injector (mohchitoza 3-Crista) losartan 50 mg tablet 50 mg [...] no hepatosplenomegaly, no rebound tenderness or guarding TELEVISION OPERATOR?alert oriented x3, CN II to XII [...] (Clear) Urine pH 5.0 (<=7.5) Ur Specific [place] 1.015 (1.005-1.025) Urine Protein 300 A (Negative) [...] <Electronically signed by Harjeet Ruelas M.D.> 08/02/23 1411 [facility] Work Phone: 1(266) 698-750110-20-2023 Progress note Author Christopher Santiago [facility] August 02, 2023 6:27am Note Date/Time August 02, 2023 4 :27am [place] [address] Emergency Department Note Signed Patient: Chandler Minor MR#: [id number] : 1970 Acct: [id number] Age/Sex: 53 / M Date of [...] Unobtainable: Yes unobtainable due to mental status [facility] Medical History (Updated 08/02/23 @ 05: by Christopher Santiago DO) Diabetes Social History (Reviewed 08/02/23 @ 05: by Christopher Santiago DO) Advance Directives: No Advance Directives Information Provided: No Advance Directives on File: No Would like to be referred to Sales Outfitter for info?: No Smoking Status: Never smoker (Updated 08/02/23 @ 05: by Christopher Santiago DO) Diabetes Exam Const [...] with prior history of right-sided BKA Neuro Lena Coma Scale: document GCS findings Lena Coma Scale Eye Opening: No response Lena coma scale verbal response: No response Lena Coma Scale Motor Response: Withdraws in response [...] highlighted in the diagnostics section of the [facility] record. Imaging studies reviewed and interpreted by myself and the radiologist. Radiology interpretations are found in the diagnostics section of the [facility] record. Lab Data 08/02/23 04:24 08/02/23 04:24 [...] Lymph % (Auto) 6.3 L (13.4-45.1) % Bell % (Auto) 3.4 L (4.0-12.7) % Eos % (Auto) 2.0 (0.0-5.8) % Baso % (Auto) 0.3 (0.0-1.3) % Neut # (Auto) 12.71 H (1.70-7.00) 10*3/uL Lymph # (Auto) 0.92 (0.80-3.30) 10*3/uL Bell # (Auto) 0.50 (0.30-0.90) 10*3/uL Eos # [...] (41.1-75.9) % Lymph % (Auto) (13.4-45.1) % Bell % (Auto) (4.0-12.7) % Eos % (Auto) (0.0-5.8) % Baso % (Auto) (0.0-1.3) % Neut # (Auto) (1.70-7.00) 10*3/uL Lymph # (Auto) (0.80-3.30) 10*3/uL Bell # (Auto) (0.30-0.90) 10*3/uL Eos # (Auto) [...] signed by Christopher Santiago D.O.> 08/02/23 0627 [facility] Work Phone: 1(180) 495-934310-20-2023 Progress note Author Christopher Santiago [facility] August 02, 2023 6:27am Note Date/Time August 02, 2023 4 :27am [facility] [place] [address] [place], [place] [id number] Emergency Department Note Signed Patient: Chandler Minor MR#: [id number] : 1970 Acct: [id number] Age/Sex: 53 / M Date of [...] No Would like to be referred to Sales Outfitter for info?: No Smoking Status: Never smoker [...] Neuro Daniel Coma Scale: document GCS findings Lena Coma Scale Eye Opening: No response Daniel coma scale verbal response: No response Daniel Coma Scale Motor Response: Withdraws in response to pain Lena coma scale total score: 6 Sensorium/orientation: lethargic [...] highlighted in the diagnostics section of the [facility] [employer] record. Imaging studies reviewed and interpreted by myself and the radiologist. Radiology interpretations are found in the diagnostics section of the [facility] [employer] record. Lab Data 08/02/23 04:24 08/02/23 04:24 [...] Lymph % (Auto) 6.3 L (13.4-45.1) % Bell % (Auto) 3.4 L (4.0-12.7) % Eos % (Auto) 2.0 (0.0-5.8) % Baso % (Auto) 0.3 (0.0-1.3) % Neut # (Auto) 12.71 H (1.70-7.00) 10*3/uL Lymph # (Auto) 0.92 (0.80-3.30) 10*3/uL Bell # (Auto) 0.50 (0.30-0.90) 10*3/uL Eos # [...] (41.1-75.9) % Lymph % (Auto) (13.4-45.1) % Bell % (Auto) (4.0-12.7) % Eos % (Auto) (0.0-5.8) % Baso % (Auto) (0.0-1.3) % Neut # (Auto) (1.70-7.00) 10*3/uL Lymph # (Auto) (0.80-3.30) 10*3/uL Bell # (Auto) (0.30-0.90) 10*3/uL Eos # (Auto) [...] signed by Christopher Santiago D.O.> 08/02/23 0627 [facility] Work Phone: [phone] NoteRight Eye Quality was good. Scan locations included subfoveal. Progression has improved. Findings include abnormal foveal contour. Left Eye Quality was poor.[id number] History of Present illness Narrative* Demetri Frank [...] neck no ICA stenosis - GCA symptoms NAYAK, jaw mikaela, F/C negative - rec go to ED if symptoms recur Return 6 weeks Dilate OU OCT mac OU documented in this [id number] NoteRight Eye Quality was good. Scan locations included subfoveal. Progression has worsened. Findings include abnormal foveal contour, intraretinal fluid. Left Eye Quality was borderline. Scan locations included subfoveal. Progression has worsened. Findings include abnormal foveal contour, intraretinal fluid. [id number] History of Present illness Narrative* Demetri Frank MD - 06/26/2023 4:27 PM EDT Longstanding PDR OU, DME, mac ischemia OU Sp PRP OU, Repeated injections - last 10/2022 Did not notice any real improvement with injections [place] [address] Vision worse per pt A/P 1. DM [...] neck no ICA stenosis - GCA symptoms NAYAK, jaw mikaela, F/C negative - rec go to ED if symptoms recur Return 2 months Dilate OU OCT mac OU documented in this [id number] Evaluation note* Encounter Date Diagnosis Assessment Notes [...] medication. May, Muscle spasm (ICD-10 - M62.838) [employer] Other 07-06-2023 Progress note [facility] April 18, 2023 10:57am Note Date/Time April 18, 2023 10:57 am [facility] [address] [place] [address] Nephrology Progress Note Signed Patient: Chandler Minor MR#: [id number] : 1970 Acct:[id number] Age/Sex: 52 / M Adm Date: 3 Loc: Room: [address] [place] [address] Type: ADM IN Attending Dr: Kameron Dos Santos DO Copies to: ~ Date of Service: 04/18/2023 Subjective Subjective Narrative: Mr. Minor is a 52-year-old white gentleman with history of DM 2, HTN, COPD and CKD stage III s/p right BKA. Patient was transferred from [facility] forelevated creatinine above the baseline 3.26 mg/dL [...] the last 2 weeks. He presented to [facility] with generalized weakness. Creatinine was found to be 3.26 mg/dL as stated above. Patient was given 1 L of IV fluid and was transferred to [facility] for further evaluation. Patient denied any [...] 10 Mg Tablet) 10 mg PO DAILY [facility] Stop: 04/15/24 13:39 Last Admin: 04/18/23 09:28 Dose: 10 mg Atorvastatin Calcium (Atorvastatin 40 Mg Tablet) 40 mg PO QPM [facility] Stop: 04/15/24 20:59 Last Admin: 04/17/23 20:42 Dose: 40 mg Bumetanide (Bumetanide 1 Mg Tablet) 1 mg PO BID@0800,1600 [facility] Stop: 04/16/24 15:59 Last Admin: 04/18/23 09:28 Dose: 1 mg Dextrose (Dextrose 50% In Water 25 Gm/50 Ml Syringe) 0 gm IV-PUSH PRN PRN PRN Reason: Hypoglycemia Stop: 04/15/24 05:42 Enoxaparin Sodium (Enoxaparin 40 Mg/0.4 Ml Syringe) 40 mg SUBCUT DAILY@10 [facility] Stop: 04/15/24 09:59 Last Admin: 04/18/23 09:35 [...] Units/3 Ml Insuln.Pen) 0 units SUBCUT TID.WM.HS [facility]; Protocol Stop: 04/15/24 07:59 Last Admin: 04/18/23 09:29 Dose: Not Given Insulin Glargine (Insulin Glargine 300 Units/3 Ml Insuln.Pen) 42 units SUBCUT BID [facility] Stop: 04/15/24 08:59 Last Admin: 04/18/23 09:29 Dose: 42 units Levothyroxine Sodium (Levothyroxine 25 Mcg Tablet) 25 mcg PO DAILY.629 [facility] Stop: 04/15/24 06:29 Last Admin: 04/18/23 05:34 [...] 15 Gm Bottle) 1 applic TOPICAL BID [facility] Last Admin: 04/18/23 09:29 Dose: 1 applic Pantoprazole Sodium (Pantoprazole 40 Mg Tablet.Dr) 40 mg PO DAILY [facility] Stop: 04/15/24 08:59 Last Admin: 04/18/23 09:28 Dose: 40 mg Potassium Chloride (Potassium Chloride Er 20 Meq Tab.Er.Prt) 40 meq PO DAILY PRN PRN Reason: Hypokalemia Stop: 04/15/24 13:39 Tamsulosin HCl (Tamsulosin 0.4 Mg Cap.Er.24h) 0.4 mg PO DAILY [facility] Stop: 04/16/24 14:04 Last Admin: 04/18/23 09:28 Dose: 0.4 mg Trazodone HCl (Trazodone 50 Mg Tablet) 50 mg PO [facility] Stop: 04/16/24 21:59 Last Admin: 07/05/23 21:52 Dose: Not Given Allergies promethazine [From [...] signed by MD Nkechi Kc> 04/18/23 1051 [facility] Work Phone: 1(392) 300-822807-05-2023 Progress note Author Kameron Dos Santos [facility] April 17, 2023 4:48pm Note Date/Time April 17, 2023 4:42p m [facility] [address] [place] [address] Hospitalist Progress Note Signed Patient: Chandler Minor MR#: [id number] : 1970 Acct:[id number] Age/Sex: 52 / M Adm Date: 3 Loc: Room: [address] [place] [address] Type: ADM IN Attending Dr: Kameron Dos [...] by Kameron Dos Santos DO> 04/17/23 1648 [facility] Work Phone: 1(791) 142-263007-05-2023 Consult note Author Nkechi Kc [facility] April 17, 2023 11:20am Note Date/Time April 17, 2023 11:04 am [facility] [address] [place] [address] Nephrology Consult Note Signed Patient: Chandler Minor MR#: [id number] : 1970 Acct:[id number] Age/Sex: 52 / M Adm Date: 3 Loc: Room: [address] [place] [address] Type: ADM IN Attending Dr: Kameron Dos [...] s/p right BKA. Patient was transferred from [facility] forelevated creatinine above the baseline 3.26 mg/dL [...] the last 2 weeks. He presented to [facility] with generalized weakness. Creatinine was found to be 3.26 mg/dL as stated above. Patient was given 1 L of IV fluid and was transferred to [facility] for further evaluation. Patient denied any [...] abuse Surgical History S/P percutaneous transluminal angioplasty (APPLIANCE ADJUSTER) Family History Other Diabetes mellitus, type 2 [...] 40 Mg Tablet) 40 mg PO QPM [facility] Stop: 04/15/24 20:59 Last Admin: 04/16/23 21:34 Dose: 40 mg Dextrose (Dextrose 50% In Water 25 Gm/50 Ml Syringe) 0 gm IV-PUSH PRN PRN PRN Reason: Hypoglycemia Stop: 04/15/24 05:42 Enoxaparin Sodium (Enoxaparin 40 Mg/0.4 Ml Syringe) 40 mg SUBCUT DAILY@10 [facility] Stop: 04/15/24 09:59 Last Admin: 04/17/23 09:14 [...] 300 Units/3 Ml Insuln.Pen) 0 units SUBCUT TID.WM.[facility]; Protocol Stop: 04/15/24 07:59 Last Admin: 04/17/23 07:51 Dose: Not Given Insulin Glargine (Insulin Glargine 300 Units/3 Ml Insuln.Pen) 42 units SUBCUT BID [facility] Stop: 04/15/24 08:59 Last Admin: 04/17/23 09:14 Dose: Not Given Levothyroxine Sodium (Levothyroxine 25 Mcg Tablet) 25 mcg PO DAILY.0630 [facility] Stop: 04/15/24 06:29 Last Admin: 04/17/23 06:18 [...] 15 Gm Bottle) 1 applic TOPICAL BID [facility] Last Admin: 04/17/23 09:13 Dose: 1 applic Pantoprazole Sodium (Pantoprazole 40 Mg Tablet.Dr) 40 mg PO DAILY [facility] Stop: 04/15/24 08:59 Last Admin: 04/17/23 09:13 [...] Appearance Clear Urine pH 6.5 Ur Specific [place] 1.017 Urine Protein 300 H Urine Glucose [...] Jesu Reese M.D.04/16/2023 6:22 PM Dictation Location: [place] [address] Any impression(s) listed above is documentation that was entered by the reading physician into a diagnostic report(s) for Arvel R [place]. I have reviewed the report(s) and am [...] <Electronically signed by MD Nkechi Kc> 04/17/23 1124 [facility] Work Phone: 1(635) 759-390307-04-2023 Progress note Author Kameron Dos Santos [facility] April 16, 2023 5:33pm Note Date/Time April 16, 2023 5:27p m [facility] [address] [place] [address] Progress Note Signed Patient: Chandler Minor MR#: [id number] : 1970 Acct:[id number] Age/Sex: 52 / M Adm Date: 3 Loc: Room: [address] [place] [address] Type: ADM IN Attending Dr: Kameron Dos [...] increased his diuretic recently. [facility]. It is noted that his [...] by Kameron Dos Santos DO> 04/16/23 1733 [facility] Work Phone: 1(740) 388-479007-04-2023 History and physical note Author Albert Woods [facility] April 16, 2023 5:29am Note Date/Time April 16, 2023 5:29a m [facility] [address] [place] [address] Hospitalist H&P Signed Patient: Chandler Minor MR#: [id number] : 1970 Acct:[id number] Age/Sex: 52 / M Adm Date: 3 Loc: Room: [address] [place] [address] Type: ADM IN Attending Dr: Kameron Dos [...] presents hospital today as a transfer from [facility] for FRANK. He states he was recently in a fluid overload state and he was already taking Bumex 1 mg twice daily and his perianesthesia rn recently put him on metolazone 2.5 mg Saturday, he states once that was started he lost 19 pounds of water weight and roughly 2 weeks and he presented to the hospital today with chief complaint of weakness and chest pain at [facility]. [facility] was found to have FRANK with his creatinine 3.26. He was given 1 L of IV fluids at [facility] and then he was subsequently transferred here. [...] abuse Surgical History S/P percutaneous transluminal angioplasty (APPLIANCE ADJUSTER) Family History Other Diabetes mellitus, type 2 [...] She received 1 L IV fluids at [facility] ? 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 Scan locations included subfoveal. Progression has worsened. Findings include intraretinal fluid. Left Eye Quality was good. Scan locations included subfoveal. Progression has worsened. Findings include intraretinal fluid. Notes Atrophy and IRF OU Brady Lowry MD [id number] Instructions* Patient Instructions* Maddie Lau MD - [...] appointment for next Saturday. documented in this [id number] History of Present illness Narrative* Maddie Lau [...] neck no ICA stenosis - GCA symptoms NAYAK, jaw mikaela, F/C negative - rec go to ED if symptoms recur Dilate ou Oct ou Color photos ou PRP Maddie Lau MD Ophthalmology Resident Seen with Dr. Lowry documented in this [id number] History of Present illness Narrative* Brady Lowry [...] neck no ICA stenosis - GCA symptoms NAYAK, jaw mikaela, F/C negative - rec go [...] note. Brady Lowry MD documented in this [id number] NoteTime Out Confirmed correct patient, procedure, site, [...] fill in OU Inferior VH limiting uptake [id number] NoteRight Eye Quality was good. Scan locations included subfoveal. Progression has been stable. Findings include abnormal foveal contour. Left Eye Quality was good. Scan locations included subfoveal. Progression has been stable. Findings include abnormal foveal contour. Notes Atrophy/thin retina [id number] History of Present illness Narrative * Hema [...] neck no ICA stenosis - GCA symptoms NAYAK, jaw mikaela, F/C negative - rec go to ED if symptoms recur Return 2 months Dilate OU OCT mac OU documented in this [id number] NoteRight Eye Quality was good. Scan locations included subfoveal. Progression has improved. Findings include abnormal foveal contour, intraretinal fluid. Left Eye Quality was good. Scan locations included subfoveal. Progression has improved. Findings include abnormal foveal contour, intraretinal fluid. [id number] History of Present illness Narrative* Demetri Frank [...] neck no ICA stenosis - GCA symptoms NAYAK, jaw mikaela, F/C negative - rec go to ED if symptoms recur Dilate ou Oct ou Color photos ou PRP documented in this [id number] NoteHNO ID: [id number] Author: Vj Haddad II, OD Service: ? 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 Patient will continue all ongoing care with previously established care givers. 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 Vj Haddad II, [facility] Instructions* Patient Instructions* Vj Haddad II, OD - 09/03/2022 5:11 PM EST [facility] History of Present illness Narrative* Vj Haddad II, OD - 09/03/2022 5:08 PM EST Assessment and Plan Z02.71 Disability examination (primary encounter diagnosis) Comment: Patient understands that today's examination is for purposes of disability determination only. Patient will continue all ongoing care with previously established care givers. 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, unspecified whether halfway insulin use (HCC) E11.3592 Type 2 diabetes mellitus with proliferative diabetic retinopathy of left eye without macular edema, unspecified whether termite technician insulin use (HCC) Comment: Last intraocular injection [...] Vj Haddad II, OD [facility] Evaluation note* Encounter Date Diagnosis Assessment Notes Treatment Notes Treatment Clinical Notes Aug, Type 2 diabetes mellitus with hyperglycemia (ICD-10 - E11.65) [facility] Other 11-14-2022 Evaluation note* Encounter Date Diagnosis Assessment Notes Treatment Notes Treatment Clinical Notes Aug, Type 2 diabetes mellitus with hyperglycemia (ICD-10 - E11.65) [facility] Other 08-03-2022 Evaluation note* Encounter Date Diagnosis Assessment Notes Treatment Notes Treatment Clinical Notes May, Type 2 diabetes mellitus with hyperglycemia (ICD-10 - E11.65) 1. Uncontrolled, a Type 2 diabetes with A1c of 8.6%. 2. Blood glucose levels improved from last visit 01/10/22 a1c was 15.8%. According to dexcom g6 cgm download 05/03/22-05/16/22: Avg glucose 184. [...] would need stopped. Pt agreeable to starting [id number] once daily 3. Patient is alert, oriented [...] medication issues. 6. Prescriptions: Sent jardiance to [facility] as requested. May, Dietary counseling and surveillance (ICD-10 - Z71.3) see above May, Hyperlipidemia (ICD-10 - E78.5) on statin May, HTN (hypertension) (ICD-10 - I10) on arb May, FDC current use of insulin (ICD-10 - Z79.4) May, BMI 36.0-36.9,adult (ICD-10 - Z68.36) May, Hypoglycemia associated with type 2 diabetes mellitus (ICD-10 - E11.649) [facility] Other [id number] NoteRight Eye Quality was good. Progression has worsened. Findings include intraretinal fluid, subretinal fluid, abnormal foveal contour. Left Eye Quality was good. Progression has worsened. Findings include intraretinal fluid, subretinal fluid, abnormal foveal contour.[id number] History of Present illness Narrative* Demetri Frank [...] neck no ICA stenosis - GCA symptoms NAYAK, jaw mikaela, F/C negative - rec go to ED if symptoms recur precert althea egg115 today F/u 4-6 weeks shahla/vivian Dilate ou Oct ou Color photos ou documented in this [id number] Telephone encounter Note* Telephone Encounter - Agustin Munguia MD - 03/19/2022 9:20 AM EDT Already has appt this 03/21 [facility] Phone: [phone]) [phone] Miscellaneous Notes* Telephone Encounter - Agustin Munguia MD - 03/19/2022 9:20 AM EDT Already has appt this 03/21 Confirmed appt with family * Telephone Encounter - Rita Gonzalez - 03/19/2022 8:05 AM EDT Pt's family called back in regarding this issue. They are very frustrated because they never received a call from anyone with an appt date/time. They request a call at [phone] to proceed. She states she will call back in tomorrow should she not hear back. Thank you. * Telephone Encounter - Ebonie Huizar - 03/07/2022 10:43 AM EDT Family calling in on behalf of pt - regarding above mssgs. Asking to be rescheduled for sooner appt when possible. Best contact # [phone] Thank you! * Telephone Encounter - Rita [...] he cannot see. Please contact pt at [phone] to discuss/advise. Thank you. documented in this [id number] Miscellaneous Notes* Telephone Encounter - Rita Gonzalez - 03/19/2022 8:05 AM EDT Pt's family called back in regarding this issue. They are very frustrated because they never received a call from anyone with an appt date/time. They request a call at [phone] to proceed. She states she will call back in tomorrow should she not hear back. Thank you. * Telephone Encounter - Ebonie Huizar - 03/07/2022 10:43 AM EDT Family calling in on behalf of pt - regarding above mssgs. Asking to be rescheduled for sooner appt when possible. Best contact ph# [phone] Thank you! * Telephone Encounter - Rita [...] he cannot see. Please contact pt at [phone] to discuss/advise. Thank you. documented in this [id number] Telephone encounter Note* Telephone Encounter - Rita Gonzalez - 03/19/2022 8:05 AM EDT Pt's family called back in regarding this issue. They are very frustrated because they never received a call from anyone with an appt date/time. They request a call at [phone] to proceed. She states she will call back in tomorrow should she not hear back. Thank you. [id number] Evaluation note* Encounter Date Diagnosis Assessment Notes Treatment Notes Treatment Clinical Notes February, Other Summary of Visi t: (A) reviewed which foods have carbs and which are low carb (B) basic carb counting (C) treatment of hypoglycemia Patient set the following goals: - practice carb counting and dosing insulin accurately [facility] Other 05-25-2022 Evaluation note* Encounter Date Diagnosis Assessment Notes Treatment Notes Treatment Clinical Notes February, Type 2 diabetes mellitus with hyperglycemia (ICD-10 - E11.65) [facility] Other 05-25-2022 Telephone encounter Note* Telephone Encounter - Ebonie Huizar - 03/07/2022 10:43 AM EDT Family calling in on behalf of pt - regarding above mssgs. Asking to be rescheduled for sooner appt when possible. Best contact # [phone] Thank you! [id number] Miscellaneous Notes* Telephone Encounter - Ebonie Huizar - 03/07/2022 10:43 AM EDT Family calling in on behalf of pt - regarding above mssgs. Asking to be rescheduled when possible. Best contact ph# [phone] Thank you! * Telephone Encounter - Rita [...] he cannot see. Please contact pt at [phone] to discuss/advise. Thank you. documented in this [id number] Miscellaneous Notes* Telephone Encounter - Ebonie Huizar - 03/07/2022 10:43 AM EDT Family calling in on behalf of pt - regarding above mssgs. Asking to be rescheduled for sooner appt when possible. Best contact # [phone] Thank you! * Telephone Encounter - Rita [...] he cannot see. Please contact pt at [phone] to discuss/advise. Thank you. documented in this [id number] Evaluation note* Encounter Date Diagnosis Assessment Notes Treatment Notes Treatment Clinical Notes February, Type 2 diabetes mellitus with hyperglycemia (ICD-10 - E11.65) [facility] [employer] Other [id number] Telephone encounter Note* Telephone Encounter - Rita [...] he cannot see. Please contact pt at [phone] to discuss/advise. Thank you. [id number] Miscellaneous Notes* Telephone Encounter - Rita Gonzalez [...] he cannot see. Please contact pt at [phone] to discuss/advise. Thank you. documented in this [id number] Evaluation note* Encounter Date Diagnosis Assessment Notes [...] levemir to 40 units bid. Payton PAUL, GEOPHYSICAL PROSPECTING SURVEYOR-C -ADM [facility] Other 04-15-2022 Evaluation note* Encounter Date Diagnosis [...] educating the patient by Dolores Osborne RN. [facility] Other 04-11-2022 Evaluation note* Encounter Date Diagnosis [...] to 1.8mg dose. Recommend f/u apt with certified adaptive physical educator for application of dexcom g6- he is to bring his phone to see if compatible for julia for dexcom g6- if not compatible will recommend he wear professional dexcom blinded x10 days. He was given log book instructed to log meals, glucose, insulin dosing and bring to f/u apt for review with certified adaptive physical educator. Also recommend he see RD to assist with carb counting. He is interested in insulin pump. He was also given phone number/website to [facility], encouraged to call for apt. Will send prodCPA Exchange talking meter- meter blood sampling for strip [...] or diabetes medication issues. 6. Prescriptions: Uses [employer]'s Melvin. 7. F/u with certified adaptive physical educator 2 weeks application of dexcom- see above. Referral to RD for instruction on carb counting- pt interested in insulin pump. Jan, Dietary counseling and surveillance (ICD-10 - Z71.3) see above Jan, Hyperlipidemia (ICD-10 - E78.5) on statin Jan, HTN (hypertension) (ICD-10 - I10) on arb Jan, terminal clerk current use of insulin (ICD-10 - Z79.4) Jan, BMI 36.0-36.9,adult (ICD-10 - Z68.36) Jan, Hypoglycemia associated with type 2 diabetes mellitus (ICD-10 - E11.649) Pt would greatly benefit from termite technician personal use of CGM device such as a dexco g6 with ability for high/low alarm feature. Pt. currently using insulin injections >3 times/day with insulin to carb ratio/corrective factor and requires frequent self adjustment of insulin based on carbohydrate intake, physical activity blood glucose monitoring. A CGM would improve ease of access to glucose results and reduce risk of hypoglcyemia/hyperg lycemia. [facility] Other 04-01-2022 Hospital Discharge instructionsAmbulatory Orders* Initiate [...] Mepilex border foam. DISCHARGE INSTRUCTIONS FOR CARDIAC BROTH MIXER PHONE NUMBER OF YOUR PHYSICIAN: [phone] PROCEDURE: Heart Cath The following instructions have [...] cold, numb, blue or white, call the cabin outfitter immediately. 4. ACTIVITY: You are advised to [...] bottle, follow the instructions on the bottle. [facility] is not responsible for incorrect prescription information provided by the patient during their visit. Do not stop your medications without consulting your health care provider. Please take the list with you to your next doctor's appointment.[facility] Work Phone: 1(485) 417-843003-31-2022 Progress note Author Jonn Wallace [facility] January 11, 2022 4:57pm Note Date/Time January 11, 2022 4:4 8pm [facility] [address] [place] [address] Hospitalist Progress Note Signed Patient: Chandler Minor MR#: [id number] : 1970 Acct:[id number] Age/Sex: 51 / M Adm Date: 2 Loc: 4P Room: 4N9857-4 Type : ADM INOo Attending Dr: Jonn [...] Tablet PO 01/10/23 23:29 20 mg QHS GUERLIEN Administration Nicotine 1 each 01/10/22 19:44 Nicotine [...] <Electronically signed by Jonn Wallace MD> 01/11/22 5626 [facility] Work Phone: 1(464) 708-699103-31-2022 Consult note Author Leann Sarmiento [facility] January 11, 2022 2:30pm Note Date/Time January 11, 2022 2:3 0pm [facility] [address] [place] [address] Cardiology Consult Note Signed Patient: Chandler Minor MR#: [id number] : 1970 Acct:[id number] Age/Sex: 51 / M Adm Date: 2 Loc: Room: [address] [place] [address] Type : ADM IN Attending Dr: Jonn [...] or illicit drug use. Denies personal h/o SD, HF, bleeding disorder. His father had ministrokes [...] abuse Surgical History S/P percutaneous transluminal angioplasty (APPLIANCE ADJUSTER) Family History Other Diabetes mellitus, type 2 [...] Lymph # (Auto) 1.2 1.3 (1.00-4.8) x10E3/uL Bell # (Auto) 0.5 0.6 (0.0-0.8) x10E3/uL Eos [...] ml @ 999 mls/hr IV .Q1H1M ONE Rx#:[id number] Oral 100 / 100 50 / 50 [...] <Electronically signed by Leann Sarmiento DO> 01/11/22 3400 [facility] Work Phone: 1(508) 740-582203-31-2022 Procedure [facility]03-31-2022 Procedure [facility]03-31-2022 History and physical note Author Jonn Wallace [facility] January 11, 2022 11:49am Note Date/Time January 11, 2022 11: 49am [facility] [address] [place] [address] Hospitalist H&P Signed Patient: Chandler Minor MR#: [id number] : 1970 Acct:[id number] Age/Sex: 51 / M Adm Date: 2 Loc: 4 Room: [address] [place] [address] Type : ADM IN Attending Dr: Jonn [...] Medical History (Updated 01/10/22 @ 19:00 by Chavez Darío) Anxiety and depression Apnea Asthma Autonomic dysfunction BPH (benign prostatic hyperplasia) CKD (chronic kidney disease) stage 3, GFR 30-59 ml/min CVA (cerebral vascular accident) Diabetes mellitus, type 2 Diabetic neuropathy Generalized headaches Hypertension Hypertensive emergency Hypothyroid PRAVEENA on CPAP PAD (peripheral artery disease) Parkinson disease Pulmonary sarcoidosis Right hemiplegia Seizure disorder Seizures Tobacco abuse Surgical History S/P percutaneous transluminal angioplasty (APPLIANCE ADJUSTER) Family History Other Diabetes mellitus, type 2 [...] units (0 mL) SUBCUT ACHS #10 ml 11/01/21 [Rx Confirmed 01/10/22] insulin aspart U-100 100 [...] % (Auto) 12.3 % (.) 01/10/22 15:00 Bell % (Auto) 4.8 % (.) 01/10/22 15:00 Eos % (Auto) 4.2 % (.) 01/10/22 15:00 Baso % (Auto) 1.2 % (.) 01/10/22 15:00 Neut # (Auto) 7.6 x10E3/uL (1.8-7.7) 01/10/22 15:00 Lymph # (Auto) 1.2 x10E3/uL (1.00-4.8) 01/10/22 15:00 Bell # (Auto) 0.5 x10E3/uL (0.0-0.8) 01/10/22 15:00 [...] above. Documented By: Jonn Wallace MD 2 1829 Signed By: <Electronically signed by Jonn Wallace MD> 01/11/22 1149 [facility] Work Phone: 1(141) 895-296603-22-2022 Evaluation note* Encounter Date Diagnosis Assessment Notes [...] site. Needs emergent attention should redness/ulcer develop. [facility] Other 11-16-2021 Evaluation note* Encounter Date Diagnosis [...] writting by [facility] document [facility] Other 11-01-2021 History general Narrative - Reported* [...] Hospitalization History Hypertensive emergency, chest pain 01/10/2022 [facility] Other 11-01-2021 History general Narrative - Reported* [...] chest pain 01/10/2022 Hospitalization History CHF, CELLULTIS, [facility] Other 10-07-2021 Evaluation note* Encounter Date Diagnosis [...] Jul, HTN (hypertension) (ICD-10 - I10) Jul, FDC current us e of insulin (ICD-10 - Z79.4) [facility] Other 09-27-2021 Evaluation note* Encounter Date Diagnosis [...] we can consider him for a prosthetic. [facility] Other Evaluation noteNo assessment information available [facility] Work Phone: Evaluation note* Diagnosis Onset Date Resolution Status Chest pain acute Hx of right BKA acute Hypertensive emergency acute Diabetes mellitus chronic Tobacco abuse chronic [facility] Work Phone: Evaluation note* Diagnosis Proliferative diabetic retinopathy of both eyes associated with type 2 diabetes mellitus, unspecified proliferative retinopathy type (HCC)- Primary [facility] [employer] Other Evaluation note* Diagnosis Disability examination- Primary Issue of medical certificate for disability examination 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, unspecified whether termite technician insulin use (HCC) Type 2 diabetes mellitus with proliferative diabetic retinopathy of left eye without macular edema, unspecified whether halfway insulin use (HCC) Myopia, bilateral Myopia Regular astigmatism, bilateral Presbyopia [facility] Diagnosis Proliferative diabetic retinopathy of both [...] Resolution Status FRANK (acute kidney injury) ac [place] Dehydration acute CKD (chronic kidney disease) stage 3, GFR 30-59 ml/min chronic Diabetes mellitus chronic Hypertension [facility] Work Phone: Evaluation note* Diagnosis [...] d Hypoglycemia resolved Hypothermia resolved Leukocytosis resolved [facility] Work Phone: Evaluation note* Diagnosis Proliferative [...] Below knee amputation Hospitalization History see above [facility] Other Hospital Discharge [facility] Work Phone: Summary Purpose Family History [...] carole Not Specified Family history non-contributory Unknown Relationship Condition Age at Onset Recorded Date/T carole Not Specified Type 2 diabetes mellitus Unknown Cerebrovascular accident (CVA) Unknown brother Diabetes mellitus Unknown father Hypertension Unknown Unknown History of stroke Unknown Diabetes mellitus Unknown Not Specified Hypertension Unknown Advance Directives No Advanced Directives Records [...] Relationship Healthcare Agent Relationshi p Communication Suzan Mily Parent Supplemental (Other) Pratibhais ion Maker Tiffanie Mily Child Secondary Decision Maker Leeanna Minor Spouse Primary Decision Maker Advance Directive Response Recorded Date/ Time Advance Directives No May 23, 2018 3:22pm Advance Directive Response Recorded Date/ Time Advance Directives No August 02, 2023 4:29am Advance Directive Response Recorded Date/ Time Advance Directives No August 02, 2023 3:36pm Advance Directive Response Recorded Date/ Time Advance Directives No May 23, 2018 2:22pm Reason for Referral Status Reason Specialty Diagnoses / Procedures Referre d By Contact Referred To Contact Closed Radiology Diagnoses 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 (HCC) Procedures CTA ABDOMINAL AORTA [place] [address] [place] [address] Specialty Diagnoses / Procedures Referred By Jay t Referred To Contact Infusion Services Diagnoses Proliferative diabetic retinopathy of both eyes associated with type 2 diabetes mellitus, unspecified proliferative retinopathy type (HCC) Demetri Frank MD [address] [place] [address] [facility] [employer] [address] [place] [address] Referral ID Status Reason Start Date Expiration Date V isits Requested Visits Authorized [id number] Pending Review 03/21/2022 03/21/2023 14 14 Question [...] intradermal (PPD) (CVX=96) Assessments Diagnosis 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 (HCC) Atherosclerosis of [place] arteries of the extremities with gangrene Diagnosis [...] loss Fluid Accumulation: No significant fluid accumulation Sports Therapist Strength: Not Performed Estimated Daily Nutrient Needs: Energy (kcal): 8284-9739 kcals @ 13-15 kcal/kg; Weight Used for Energy Requirements: Admission(133 kg) Protein (g): 84-97 g protein @ 1.3-1.5 g/kg IBW; Weight Used for Protein Requirements: [place](65 kg) Fluid (ml/day): ~1950 @ 30 ml/kg [...] Weight: 214 lb (97.1 kg)((2019); 236# ( 1/21)) [place] Body Weight: 142 lbs; BMI: 47 BMI [...] AM EDT Wound Ostomy Continence Nursing This [facility] Nurse asked by Dr. Galarza and nursing [...] wound evaluation. No other needs from this [facility] Nurse at this time. documented in this encounter Hospital Course * Kaiser Galarza MD - 12/29/2020 11:11 AM EDT Hospital Medicine Discharge Summary Chandler Minor : 1970 Admit date: 12/28/2020 Discharge date: 12/29/2020 Admitting Physician: Kaiser Galarza MD Primary Care Physician: Fadi P House, Sr, DO Discharge Diagnoses: Right superficial femoral [...] by the following consultants while admitted to [facility]: Consults: IP CONSULT TO VASCULAR SURGERY Significant Diagnostic Studies: Refer to chart Please refer to chart if no studies are shown here No results found. Discharge Medications: Chandler Minor Home Medication Instructions FLORENTIN:[id number] Printed on:12/29/20 1111 Medication Information amLODIPine (NORVASC) [...] daily Disposition: If discharged to Home, Any [facility] needs that were indicated and/or required as [...] Signed: Kaiser Galarza 12/29/2020, 11:11 AM [place]de [place], documented in this encounter Discharge Instructions * [...] most local grocery stores, pharmacies, and chain [employer]stores. If you have any questions about your [...] Hospital Unit/Room#: W194/W194-01 Discharging Unit Phone Number: [phone] Emergency Contact: Extended Emergency Contact Information Primary Emergency Contact: Tiffanie Minor Relation: Child Preferred language: Mozambican Artificial Breeding Technician needed? No Secondary Emergency Contact: Suzan Minor Relation: Parent Preferred language: Mozambican Artificial Breeding Technician needed? No Past Surgical History: Past [...] Assisted Dressing Assisted Toileting Assisted Feeding Independent Sr Vice President Assisted Med Delivery whole Wound Care Documentation [...] select all that are sent with patient): {[facility] DME Belongings:[id number]:::[id number]} RN SIGNATURE: CASE MANAGEMENT/SOCIAL WORK SECTION Inpatient Status Date: Readmission Risk Assessment Score: Readmission Risk Risk of Unplanned Readmission: 15 Discharging to Facility/ Agency Name: [facility] Address:[address] [place] [address] Fax: Dialysis Facility (if applicable) Name: Address: Dialysis Schedule: Phone: Fax: Greens Laborer/Senior Contracts Administrator signature: PHYSICIAN SECTION Prognosis: Good Condition at [...] the diagnosis listed and that he requires [facility] Facility[facility] less 30 days. Update Admission H&P: [...] mental state Hypoglycemia Hypothermia Leukocytosis Chief Complaint Eval Socket And Leg Not Fitting Properly Chief Complaint * Patient is a 51-year-old diabetic gentleman who returns following recent non- ST elevation SD, cardiac catheterization revealed severe LAD disease throughout [...] section and content) DATE CREATED AUTHOR 01/16/2019 [employer] [facility] DATE CREATED AUTHOR AUTHOR'S ORGANIZ ATION 12/30/2020 [facility] DATE CREATED AUTHOR AUTHOR'S ORGANIZ ATION 03/08/2022 [employer] DATE CREATED AUTHOR AUTHOR'S ORGANIZ ATION 09/04/2022 [facility] DATE CREATED AUTHOR AUTHOR'S ORGANIZ ATION 03/23/2023 [facility] DATE CREATED AUTHOR AUTHOR'S ORGANIZ ATION 09/19/2023 [facility] DATE CREATED AUTHOR AUTHOR'S ORGANIZ ATION 11/08/2023 [facility] DATE CREATED AUTHOR AUTHOR'S ORGANIZ ATION 12/02/2023 [facility] DATE CREATED AUTHOR AUTHOR'S ORGANIZ ATION 12/02/2023 [facility] Reason for Visit (unrecogniz ed section and content) Status Reason Specialty Diagnoses / Procedures Referre d By Contact Referred To Contact Closed Radiology Diagnoses 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 (HCC) Procedures CTA ABDOMINAL AORTA [place] [address] [place] [address] Status Reason Specialty Diagnoses / Procedures Referre d By Contact Referred To Contact [facility] Reason Comments Other sent from cardiac, n eeds to be admitted, vascular issue rle Status Reason Specialty Diagnoses / Procedures Referred By Contact Referred To Contact Diagnoses [place] [address] [place] [address] [facility] Reason Onset Date Comments Other sympt/complt of eye 02/12/2022 Reason Comments Diabetic Eye Exam Reason Comments Disability Evaluation Specialty Diagnoses / Procedures Referred By Contac t Referred To Contact Optometry / OPHTHALMOLOGY Diagnoses [place] Disability Exam (Case#[id number]) Procedures NEW ADULT Self Vj Haddad II, OD [address] [place] [address] Referral ID Status Reason Start Date Expiration Date Visits Re quested Visits Authorized [id number] Closed 09/03/2022 09/03/2022 1 1 Reason Comments [...] Team Status: Active Member Role Status Dates Fadi Tenorio DO Primary Care Provider Active Mika Das , PEDIATRIC SPEECH LANGUAGE PATHOLOGIST Attending Provider Active Horse Racing Analyst Relationship Specialty Start Date End Date Rober Lopes MD [address] [place] [address] Physician Ophthalmology 07/19/20 Raul Chamberlain MD [address] [place] [address] [place] [address] Resident Ophthalmology 07/19/20 Agustin Hampton MD [address] [place] [address] Resident Ophthalmology 11/18/21 Horse Racing Analyst Relationship Specialty Start Date End Date Rober Lopes MD [address] [place] [address] Physician Ophthalmology 07/19/20 Raul Chamberlain MD [address] [place] [address] [place] [address] Resident Ophthalmology 07/19/20 Agustin Hampton MD [address] [place] [address] Resident Ophthalmology 11/18/21 Horse Racing Analyst Relationship Specialty Start Date End Date Rober Lopes MD [address] [place] [address] Physician Ophthalmology 07/19/20 Raul Chamberlain MD [address] [place] [address] [place] [address] Resident Ophthalmology 07/19/20 Agustin Hampton MD [address] [place] [address] Resident Ophthalmology 11/18/21 Horse Racing Analyst Relationship Specialty Start Date End Date Rober Lopes MD [address] [place] [address] Physician Ophthalmology 07/19/20 Raul Chamberlain MD [address] [place] [address] [place] [address] Resident Ophthalmology 07/19/20 Agustin Hampton MD [address] [place] [address] Resident Ophthalmology 11/18/21 Horse Racing Analyst Relationship Specialty Start Date End Date Rober Lopes MD [address] [place] [address]207 Physician Ophthalmology 07/19/20 Raul Chamberlain MD [address] [place] [address] [place] [address] Resident Ophthalmology 07/19/20 Agustin Hampton MD [address] [place] [address] Resident Ophthalmology 11/18/21 Team Status: Inactive Member Role Status Juan Tenorio , DO Primary Care Provider Active Sinan Holly , Emergency Provider Active Suzan Bennett MD RES Active Horse Racing Analyst Relationship Specialty Start Date End Date Rober Lopes MD [address] [place] [address] Physician Ophthalmology 07/19/20 Raul Chamberlain MD [address] [place] [address] [place] [address] Resident Ophthalmology 07/19/20 Agustin Hampton MD [address] [place] [address] Resident Ophthalmology 11/18/21 Demetri Frank MD [address] [place] [address]63 Physician Ophthalmology 04/14/22 Horse Racing Analyst Relationship Specialty Start Date End Date Rober Lopes MD [address] [place] [address] 79656 Physician Ophthalmology 07/19/20 Raul Chamberlain MD [address] [place] [address] [place] [address] Resident Ophthalmology 07/19/20 Agustin Hampton MD [address] [place] [address] Resident Ophthalmology 11/18/21 Demetri Frank MD [address] [place] [address] 90[address] Physician Ophthalmology 04/14/22 Horse Racing Analyst Relationship Specialty Start Date End Date Rober Lopes MD [address] [place] [address] Physician Ophthalmology 07/19/20 Raul Chamberlain MD [address] [place] [address] [place] [address] Resident Ophthalmology 07/19/20 Agustin Hampton MD [address] [place] [address] Resident Ophthalmology 11/18/21 Demetri Frank MD [address] [facility] [place] [address] Physician Ophthalmology 04/14/22 Horse Racing Analyst Relationship Specialty Start Date End Date Rober Lopes MD [address] [place] [address] Physician Ophthalmology 07/19/20 Raul Chamberlain MD [address] [place] [address] [place] [address] Resident Ophthalmology 07/19/20 Agustin Hampton MD [address] [place] [address] [place] [address] Resident Ophthalmology 11/18/21 Demetri Frank MD [address] [place] [address] Physician Ophthalmology 04/14/22 Team Status: Inactive Member Role Status Dates Fadi Tenorio , DO Primary Care Provider Active Kameron Dos Santos , DO Attending Provider Active Albert Woods , DO Admit Provider Active Nkechi Kc MD Other Provider Active Horse Racing Analyst Relationship Specialty Start Date End Date Rober Lopes MD [address] [place] [address] Physician Ophthalmology 07/19/20 Raul Chamberlain MD [address] [place] [address] Resident Ophthalmology 07/19/20 Agustin Hampton MD [address] [place] [address] Resident Ophthalmology 11/18/21 Demetri Frank MD [address] [place] [address] Physician Ophthalmology 04/14/22 Team Status: Active Member [...] Lyles MD Other Provider Active Manda Scott DO Other Provider Active Marcelino Abel MD Other Provider Active Steve Block MD Other Provider Active Agus Morrison MD Other Provider Active Harjeet Ruelas MD Attending Provider Active Horse Racing Analyst Relationship Specialty Start Date End Date Rober Lopes MD [address] [place] [address] Physician Ophthalmology 07/19/20 Raul Chamberlain MD [address] [place] [address] Resident Ophthalmology 07/19/20 Agustin Hmapton MD [address] [place] [address] Resident Ophthalmology 11/18/21 Demetri Frank MD [address] [place] [address] Physician Ophthalmology 04/14/22 Horse Racing Analyst Relationship Specialty Start Date End Date Rober Lopes MD [address] [place] [address] Physician Ophthalmology 07/19/20 Raul Chamberlain MD [address] [place] [address] Resident Ophthalmology 07/19/20 Agustin Hampton MD [address] [place] [address] Resident Ophthalmology 11/18/21 Demetri Frank MD [address] [place] [address] Physician Ophthalmology 04/14/22 Team Status: Inactive Member Role Status Dates Agus Pedroza MD Attending Provider Active Star t: September 17, 2023 End: September 17, 2023 Goals (unrecognized section and content) Goals may be documented in a n alternate sectionNo InformationNo InformationNo InformationNo InformationNo InformationNo InformationNo InformationNo InformationNo InformationNo InformationNo InformationNo InformationNo InformationNo InformationNo InformationGoals may be documented in an alternate sectionNo InformationNo InformationNo InformationNo InformationNo InformationNo InformationNo InformationNo InformationNo InformationNo InformationNo InformationNo InformationNo InformationNo InformationGoals may be documented in an alternate sectionNo InformationGoals may be documented in an alternate section Source Comments (unrecognize d section and content) In the event this informatio n is protected by the Federal Confidentiality of Alcohol and Drug Abuse Patient Records regulations: The Federal rules restrict any use of the information to criminally investigate or prosecute any alcohol or drug abuse patient.[facility] FOR RECORDS PERTAINING TO PATIENTS WHO ARE [...] BE BASED ON THE PRIMARY CLINICAL RECORDS. [employer] provides no warranty or guarantee of the accuracy or completeness of information in this document.
== END 2023-12-06 10:12 | disposition home or self-care (01) ==
LOC: WC 10:11
PROVIDERS: PCP Family Medicine; Visit Provider Podiatrist Foot & Ankle Surgery
DX: E11.621 Type 2 diabetes mellitus with foot ulcer (principal); L97.422 Non-pressure chronic ulcer of left heel and midfoot with fat layer exposed; S81.802A Unspecified open wound, left lower leg, initial encounter
CPT/HCPCS: 11042

== ENCOUNTER 2024-03-23 15:10 | Outpatient (OUT) | payer MEDICARE, SELFPAY ==
--- NOTE | 2024-03-23 | XR_ITS ---
The [address] [address] Patient Name: KURTIS CHOUDHURY MRN: [id number] date: 1970 Sex: M Assigned Patient Location: Current Patient Location: Accession/Order Number: [id number] Exam Date: 03/23/2024 15:10 Report Date: 03/24/2024 07:28 At the request of: CLIVE RICO Procedure: XR ankle LT min 3V PROCEDURE: XR ankle LT min 3V COMPARISON: None. HISTORY: LEFT ANKLE PAIN FINDINGS: BONES:No acute fracture or dislocation. Mild to moderate osteoarthropathy with marginal osteophyte formation. Enthesopathic spurring of the calcaneus at the Achilles and plantar insertions SOFT TISSUES:Negative. No visible soft tissue swelling. EFFUSION:None visible. OTHER: Negative. XR/XR ankle LT min 3V IMPRESSION: Mild to moderate osteoarthritis Electronically authenticated by: CONSTANTIN FLORES Date: 03/24/2024 07:28
== END 2024-03-23 15:11 | disposition home or self-care (01) ==
LOC: WC 15:10
PROVIDERS: PCP Family Medicine; Visit Provider Podiatrist Foot & Ankle Surgery
DX: M25.572 Pain in left ankle and joints of left foot (principal); M19.072 Primary osteoarthritis, left ankle and foot; E11.622 Type 2 diabetes mellitus with other skin ulcer; L97.322 Non-pressure chronic ulcer of left ankle with fat layer exposed; E11.621 Type 2 diabetes mellitus with foot ulcer; L97.521 Non-pressure chronic ulcer of other part of left foot limited to breakdown of skin; L60.9 Nail disorder, unspecified
CPT/HCPCS: 11042; 73610

== ENCOUNTER 2024-03-27 07:32 | Outpatient (OUT) | payer MEDICARE, SELFPAY ==
--- NOTE | 2024-03-27 07:48 | VEIN_ITS ---
The [address] [address] Patient Name: KURTIS CHOUDHURY MRN: [id number] date: 1970 Sex: M Assigned Patient Location: Current Patient Location: Accession/Order Number: [id number] Exam Date: 03/27/2024 07:48 Report Date: 03/27/2024 10:03 At the request of: XANDER DARNELL Procedure: VC SEGMENTAL PRESSURES EXAM: VC SEGMENTAL PRESSURES HISTORY: R09.89 , right leg amputation COMPARISON: None. FINDINGS: Segmental pressures presented as follows (left leg) in mmHg. Left leg: Brachial: 178 Upper thigh: 268 Lower thigh: 253 Calf: 212 DPA: 199 CABLE TECHNICIAN: 192 1st Toe: 128 CILNT: 1.12 TBI: 0.72 The left CLINT is normal The left TBI suggests mild arterial disease PVR waveforms: Left leg: Thigh: Normal Above knee: Normal Below knee: Normal Right ankle: Normal VEIN/VC SEGMENTAL PRESSURES IMPRESSION: Left TBI suggests mild distal arterial disease however normal PVR waveform is observed Electronically authenticated by: CONSTANTIN FLORES Date: 03/27/2024 10:03
--- OUTSIDE RECORDS SUMMARY | 2024-03-27 07:52 | XMS_ITS | CCD ---
Author Organization [facility] CliniSyor Care Team Providers Care Swahili Teacher Name Role Phone Fatoumata Tirado Admitting Unavailable Fatoumata Tirado HCirilo Attending Unavailable Fatoumata Tirado Referring Unavailable Donita Tenorio Primary Care Unavailable DulcesFatoumata Admitting Unavailable Fatoumata Tirado Attending Unavailable Fatoumata Tirado Referring Unavailable House, Donita Primary Care Unavailable House, Sr Donita Neves Primary Care Provider HOUSE, SR DONITA Neves Primary Care Unavailable PHUC, LLEOWELL Consulting Unavailable CHATHA, KAISER Admitting Unavailable CHATHA, KAISER Attending Unavailable KASHMIR BAZZI Consulting Unavailable PHUC, LLEOWELL Referring Unavailable HOUSE, SR DONITA Neves Primary Care Unavailable PHUC, LLEOWELL Referring Unavailable HOUSE, SR DONITA Neves Primary Care Unavailable PHUC, LLEOWELL Admitting Unavailable PHUC, LLEOWELL Attending Unavailable Coby DO Donita Primary Care Provider [phone] DO Mario Phillips Emergency Provider [phone] MD Rodriguez Wallace Admit Provider MD Rodriguez Wallace Attending Provider [phone] DO Donita Tenorio Primary Care Provider [phone] DO Mario Phillips Emergency Provider [phone] MD Rodriguez Wallace Admit Provider MD Rodriguez Wallace Attending Provider [phone] TANYA Mittal Other Provider Unavailable DO Leann Sarmiento Other Provider MD Madeline Valdez Other Provider MD Jaylen Brooks Other Provider MD Eduin Johnson Other Provider MD Donita Howard Other Provider HUMBERTO Terrazas Other Provider MD Leticia Da Silva Other Provider MD Carlos Alberto Strong Other Provider MD Malik Hernandez Other Provider Donita Tenorio Unavailable Unavailable Unavailable TANYA Mittal Other Provider Unavailable DO Leann Sarmiento Other Provider MD Madeline Valdez Other Provider MD Jaylen Brooks Other Provider MD Eduin Johnson Other Provider MD Donita Howard Other Provider HUMBERTO Terrazas Other Provider MD Leticia Da Silva Other Provider MD Carlos Alberto Strong Other Provider MD Malik Hernandez Other Provider HUMBERTO Das K Attending Provider Shahla FLAHERTY, Rober Unavailable Bulmaro FLAHERTY, Raul Unavailable Berta FLAHERTY, Agustin Unavailable Unavailable Unavailable Hunter Plaza Unavailable Mapus Tondra Unavailable Nury Martin Unavailable Agus Pedroza Unavailable ErnstJazzmine Unavailable DO Donita Tenorio Primary Care Provider [phone] HUMBERTO Dasmaria teresa Baez Attending Provider [phone] Elayne DO Espinosay Katrin Emergency Provider [phone] Unavailable Primary Care Provider UnavailVJ Gomez II Attending Unavaildixon Lopes MD, Rober Unavailable Bulmaro FLAHERTY, Raul Unavailable Berta FLAHERTY, Agustin Unavailable Vivian FLAHERTY, Demetri Unavailable [phone] Shahla FLAHERTY, Rober Unavailable Bulmaro FLAHERTY, Raul Unavailable Berta FLAHERTY, Agustin Unavailable Vivian FLAHERTY, Demetri Unavailable Vivian FLAHERTY, Demetri Unavailable Unavailable Unavailable DR MURRAY YEBOAH Consulting Unavailable RODERICK ., ALDO Admitting Unavailable RODERICK ., ALDO Attending Unavailable EAST LYNNE, DR DUCKWORTH Primary Care Unavailable SERA ., DR SHERMAN Consulting Unavailable FAWWASHAIKH Amada Castro Consulting Unavailable DANDY, ANIBAL Consulting Unavailable LAZ, LOTTIE Consulting Unavailable SISTER, JESSICA Consulting Unavailable RODERICK ., ALDO Consulting Unavailable NEWATIA, SAMANTHA Consulting Unavailable BARAZI, TONY Consulting Unavailable JUAN LUIS HAND Consulting Unavailable EAST LYNNE, DR DUCKWORTH Primary Care Unavailable EAST LYNNE, DR DUCKWORTH Admitting Unavailable EAST LYNNE, DR DUCKWORTH Attending Unavailable EAST LYNNE, DR DUCKWORTH Consulting Unavailable EAST LYNNE, DR DUCKWORTH Primary Care Unavailable NBA COBOS [...] MALHOTRA Consulting Unavailable Eliud Prado Unavailable DO Donita Tenorio Primary Care Provider DO Kvng Dos Santos Attending Provider DO Albert Woods Admit Provider [phone] MD Nkechi Kc Other Provider Vivian FLAHERTY, Demetri Unavailable DO Christopher Santiago Emergency Provider None, DO Doctor Primary Care Provider UnavailDO Chava Veras Attending Provider [phone] MD Gui Jovelreessherry Admit Provider MD Helen Jovel Attending Provider MD Radha Bell Other Provider MD Kan Granger Other Provider [phone] MD Jose Maria Lopez Other Provider MD Geovani Hebert Other Provider MD Elvin Lyles Other Provider DO Manda Scott Other Provider MD Marcelino Abel Other Provider MD Steve Block Other Provider MD Agus Morrison Other Provider MD Harjeet Ruelas Attending Provider Page, Umera Attending Unavailable Radha Bell Consulting Unavailable Helen Jovel Admitting Unavailable Kan Granger Consulting Unavailable Jose Maria Lopez Consulting Unavailable Geovani Hebert Consulting Unavailable Elvin Lyles Consulting Unavailable Manda Scott Consulting Unavailable Page, Ummonika Consulting Unavailable Steve Block Consulting Unavailable Agus Morrison Consulting Unavailable Helen Jovel Consulting Unavailable Chava Hernandez Attending Unavailable Radha Bell Consulting Unavailable Harjeet Ruelas Attending Unavailable Parsi, Harjeet Admitting Unavailable Kan Granger Consulting Unavailable Norona, Jose Maria Consulting Unavailable Hebert, Geovani Consulting Unavailable Kuzejermaine, Elvin Consulting Unavailable Manda Scott Consulting Unavailable Paracha, Umera Consulting Unavailable Tesar, Steve Consulting Unavailable Agus Morrison Consulting Unavailable Marina Solis Attending Unavailable Parsi, Harjeet Consulting Unavailable Parsi, Harjeet Admitting Unavailable House DO Donita Edinson Primary Care Provider YUE AMADOR Attending Unavailable HOUSE, DONITA P Referring Unavailable HOUSE, DONTIA P Primary Care Unavailable House Donita MORALES Primary Care Provider Coby Donita Primary Care Provider MD Kan Rodriguez Emergency Provider Coby Donita Primary Care Unavailable Kan Rodriguez Attending Unavailable Kan Rodriguez Admitting Unavailable Nkechi Kc Consulting Unavailable Coby Donita Primary Care Unavailable Albert Woods Admitting Unavailable Kvng Dos Santos Attending Unavailable YUE AMADOR Referring Unavailable HOUSE, DONITA Edinson Primary Care Unavailable HOUSE, DONITA Edinson Referring Unavailable HOUSE, DONITA P Primary Care Unavailable CRISTIANA REES Admitting Unavailable JOANNA CASPER Attending Unavailable KATHY HENAO Referring Unavailable COBY, DONITA Edinson Primary Care Unavailable SHAKILA AZEVEDO Consulting Unavailable ALEXIA, WALE U Consulting Unavailable IMDAISHA HILL Consulting Unavailable WOODSBHAVANI COLLADO K Consulting Unavailable PROVIDER, UNKNOWN Admitting Unavailable PROVIDER, UNKNOWN Attending Unavailable PROVIDER, UNKNOWN Admitting Unavailable PROVIDER, UNKNOWN Attending Unavailable PROVIDER, UNKNOWN Admitting Unavailable PROVIDER, UNKNOWN Attending Unavailable PROVIDER, UNKNOWN Admitting Unavailable VIVIAN, DEMETRI Attending Unavailable PROVIDER, UNKNOWN Admitting Unavailable CECE SZYMANSKI Attending Unavailable VIVIAN, DEMETRI Referring Unavailable VIVIAN, DEMETRI Admitting Unavailable VIVIAN, DEMETRI Attending Unavailable PROVIDER, UNKNOWN Admitting Unavailable PROVIDER, UNKNOWN Attending Unavailable PROVIDER, UNKNOWN Attending Unavailable PROVIDER, UNKNOWN Admitting Unavailable BASISTA, KVNG H Referring Unavailable HOUSE, DONITA P Primary Care Unavailable BASISTA, KVNG H Referring Unavailable HOUSE, DONITA P Primary Care Unavailable BASISTA, KVNG H Referring Unavailable HOUSE, DONITA P Primary Care Unavailable BASISTA, KVNG H Referring Unavailable HOUSE, DONITA P Primary Care Unavailable HOUSE, DONITA P Primary Care Unavailable KATHY HENAO Attending Unavailable CRISTIANA REES Admitting Unavailable [facility]ARDIOLOGY, [facility] Consulting Unavailable JULIANO, KATHY Forde Attending Unavailable WALKER, KATHY Forde Referring Unavailable HOUSE, DONITA P Primary Care Unavailable HOUSE, DONITA P Primary Care Unavailable UJLIANO, KATHY Forde Attending Unavailable SOY, RODRIGUEZ Forde Consulting Unavaildixon WILSON, JEAN-PIERRE Baez Consulting Unavailable ESPERANZA, ANAND Anderson Consulting Unavailable WALKER, KATHY Forde Attending Unavailable WALKER, KATHY R Referring Unavailable HOUSE, DONITA P Primary Care Unavailable CARLOS ALBERTO SIMMONS Attending Unavailable HOUSE, DONITA P Referring Unavailable HOUSE, DONITA P Primary Care Unavailable HOUSE, DONITA P Primary Care Unavailable Jaylon FLAHERTY, Remi Worthy Attending Unavailable HOUSE, DONITA P Primary Care Unavailable HOUSE, DONITA P Attending Unavailable HOUSE, DONITA P Primary Care Unavailable Remi Iyer MD Attending Unavailable HOUSE, DONITA P Attending Unavailable HOUSE, DONITA P Primary Care Unavailable HOUSE, DONITA P Attending Unavailable HOUSE, DONITA P Primary Care Unavailable HOUSE, DONITA P Attending Unavailable HOUSE, DONITA P Primary Care Unavailable HOUSE, DONITA P Primary Care Unavailable HOUSE, DONITA P Primary Care Unavailable Allergies Allergy Classification Reported Allergen(s) Allergy Type Date of Onset Reaction(s) Facility (2 sources) Promethazine; Translations: [Phenergan] Drug Allergy 6 [facility] Repository (20 sources) Promethazine; Translations: [promethazine] Drug Allergy 6 Other: See Comments Driverdo Phone: (2 sources) Promethazine Drug Allergy 3 [facility] Repository Medications Current Medications Medication Drug Class(es) Dates Sig (Normalized) Sig (Original) acetaminophen 500 mg / diphenhydrAMINE hydrochloride 25 mg oral tablet (5 sources) Histamine-1 Receptor Antagonist take 2 tablets by mouth once daily diphenhydrAMINE- acetaminophen (TYLENOL PM) 25-500 mg tablet Take 2 tablets by mouth nightly. 0 Active Acetaminophen / HYDROcodone (1 source) Opioid Agonist Start: 05-21-2023 HYDROCODONE-ACET AMINOPHEN ORAL Take by mouth. 0 05/21/2023 Active acetaminophen 325 mg / oxyCODONE hydrochloride 5 mg oral tablet (20 sources) Opioid Agonist Start: 12-29-2020 End: 12-29-2020 oxyCODONE-acetam inophen (PERCOCET) 5-325 MG per tablet 1 tablet Start: 10-08-2020 take 1 tablet by jacobo th every six hours for pain oxyCODONE-acetaminophen (PERCOCET) 5-325 mg per tablet take 1 tablet by mouth every 6 hours if needed for pain FOR UP TO 7 DAYS 0 10/08/2020 Active [id number] 200 actuat albuterol 0.09 mg/actuat metered dose inhaler (20 sources) beta2-Adrenergic Agonist Start: 12-17-2023 take 2 puff(s) by inhalation every four hours as needed Albuterol Sulfate Active 2 PUFF INHALATION Every 4 hours December 17, 2023 1:00am FreeTextSi puff as needed Inhalation every 4 hrs; Note: Source Status: Taking; Provider: Yovany Goldsmith ( ) Start: 08-02-2023 take 1 puff(s) by in halation every four hours Albuterol Sulfate Active 2 [...] Q4H 15 December 24, 2019 10:24am 12-24-2019 [facility] ([id number]) 0 12/24/2019 Active Start: 12-18-2019 End: 01-27-2021 [...] (20 sources) Dihydropyridine Calcium Channel Dale Start: 01-13-2023 take 10 mg by mouth once daily Amlodipine Active 10 MG PO Daily April 15, 2023 12:00am Start: 02-23-2020 take 1 tablet by jacobo th once daily amLODIPine (NORVASC) 2.5 MG tablet TK 1 T PO QD 0 02/23/2020 Active Start: 12-24-2019 End: 01-27-2021 take 2.5 mg by mouth once daily Amlodipine Discontinue d 2.5 MG PO Daily December 24, 2019 12:00am January 27, 2021 1:52pm take 1 tablet by jacobo th every twenty-four hours amLODIPine Besylate 5 MG 1 tablet Orally Once a day Active amoxicillin 875 mg / clavulanate 125 mg oral tablet (15 sources) Penicillin-class Antibacterial Start: 10-01-2020 take 1 tablet by mouth twice daily amoxicillin-clavulanate (AUGMENTIN) 875-125 MG per tablet take 1 tablet by mouth twice a day for 14 days 0 10/01/2020 Active aspirin 81 mg delayed release oral tablet (20 sources) Platelet Aggregation Inhibitor, Nonsteroidal Anti-inflammatory Drug Start: 12-17-2023 take 1 tablet by mouth once daily Aspirin Active 81 MG PO Daily December 17, 2023 1:00am FreeTextSi tablet Orally Once a day; Note: Source Status: Taking; Provider: Yovany Goldsmith ( ) Start: 01-27-2021 End: 04-15-2023 take 1 tablet [...] 2021 1:52pm take 1 tablet by jacobo once daily Aspirin 81 MG 1 tablet Orally Once a day Active End: 12-29-2020 take 1 tablet by mouth once daily aspirin 325 MG tablet Take 325 mg by mouth daily 0 12/29/2020 Discontinued (Stop Taking at Discharge) atenolol 50 mg oral tablet (20 sources) beta-Adrenergic Dale Start: 12-28-2018 End: 12-24-2019 atenolol (TENORMIN) 50 mg tablet Take 50 mg by mouth. 0 12/28/2018 Active atorvastatin 80 mg oral tablet (20 sources) HMG-CoA Reductase Inhibitor Start: 01-28-2024 atorvastatin (LIPITOR) 80 mg tablet Start: 01-12-2023 take 2 tablets by mo [facility] once daily atorvastatin (LIPITOR) 40 mg tablet Take 2 tablets (80 mg total) by mouth nightly. 30 tablet 0 01/12/2023 Active Start: 01-12-2022 End: 04-15-2023 take 80 mg [...] mg tablet benzonatate 100 mg oral capsule (3 sources) Non-narcotic Antitussive benzona weiss (TESSALON) 100 MG capsule Take by mouth every 8 hours. 0 Active take 1 capsule by mo [facility] every eight hours Benzonatate 100 MG 1 capsule as needed Orally Three times a day Active bisacodyl 10 mg rectal suppository (15 sources) Stimulant Laxative bisacodyl (Du lcolax) 10 MG suppository Dulcolax (bisacodyl) 10 mg rectal suppository Insert 1 suppository every day by rectal route. 0 Active bumetanide 1 mg oral tablet (20 sources) Loop Diuretic Start: 07-24-2023 take 1 tablet by mouth once daily bumetanide (BUMEX) 1 MG tablet Instructions: take 1 tablet by mouth once daily 0 07/24/2023 Active Start: 06-06-2023 take 1 tablet by jacobo th twice daily before mealtime bumetanide (BUMEX) 2 MG tablet See Instructions, Instructions: TAKE 1 TABLET BY MOUTH TWICE A DAY BEFORE MEALS, # 56 tab(s), 0 Refill(s), Pharmacy: [facility] - , TAKE 1 TABLET BY MOUTH TWICE A DAY BEFORE MEALS 0 06/06/2023 Active Start: 08-14-2021 End: 04-15-2023 take 1 mg [...] 14, 2021 12:00am January 10, 2022 1:41pm cephalexin 500 mg oral capsule (15 sources) Cephalosporin Antibacterial Start: 01-31-2021 cephALEXin (KEFLEX) 500 MG capsule Indications: Proliferative diabetic retinopathy of both eyes associated with type 2 diabetes mellitus, unspecified proliferative retinopathy type (HCC) , Vitreous hemorrhage of left eye (HCC) TAKE 1 CAPSULE BY MOUTH THREE TIMES DAILY FOR 7 DAYS 0 01/31/2021 Active chlorthalidone 25 mg oral tablet (15 sources) Thiazide-like Diuretic Start: 01-01-2019 chlorthalidone (HYGROTON) 25 MG tablet Take by mouth. 0 01/01/2019 Active cholecalciferol 0.025 mg oral capsule (6 sources) Vitamin D Start: 07-24-2023 Cholecalcifero l (Vitamin D-3) 25 MCG (1000 UT) CAPS 0 Refill(s) 0 07/24/2023 Active take 1 tablet by mouth every we k cholecalciferol, vitamin D3, 50,000 units tablet Take 1 tablet (50,000 Units total) by mouth once a week. 0 Active citalopram 20 mg oral tablet (20 sources) Serotonin Reuptake Inhibitor Start: 04-17-2023 take 20 mg by mouth once daily Citalopram Active 20 MG PO Daily April 17, 2023 12:00am Start: 08-14-2021 End: 04-15-2023 take 20 mg by mouth once daily in the morning Citalopram Discontinued 20 MG PO Every morning August 14, 2021 12:00am April 15, 2023 11:13pm Start: 10-24-2020 End: 06-21-2021 take 20 mg by mouth once daily in the morning Citalopram Discontinued 20 MG PO Every morning January 27, 2021 12:00am June 21, 2021 11:32am clindamycin 300 mg oral capsule (15 sources) Lincosamide Antibacterial Start: 02-23-2020 clindamycin (CLEOCIN) 300 MG capsule TK ONE C PO TID 0 02/23/2020 Active clopidogrel 75 mg oral tablet (20 sources) P2Y12 Platelet Inhibitor Start: 12-18-2019 End: 04-15-2023 take 75 mg by mouth once daily Clopidogrel Active 75 MG PO Daily April 17, 2023 12:00am collagenase 0.25 unt/mg topical ointment (1 source) Collagen-specific Enzyme collagenase (SANTYL) 250 UNIT/GM ointment Apply topically daily Apply topically to incision on Saturday, Saturday, Saturday. 0 Active cyclobenzaprine hydrochloride 5 mg oral tablet (20 sources) Muscle Relaxant Start: 07-24-2023 cyclobenzaprine (FLEXERIL) 5 MG tablet 0 Refill(s) 0 07/24/2023 Active Start: 08-14-2021 End: 04-15-2023 take 5 mg by mouth every eight hours Cyclobenzaprine Discontinued 5 MG PO Q8H 60 August 14, 2021 12:00am April 15, 2023 11:13pm take 1 tablet by jacobo th three times daily as needed for muscle spasms Cyclobenzaprine HCl 5 MG 1 tablet Orally three times daily as needed for muscle spasms for 30 days Active cyproheptadine hydrochloride 4 mg oral tablet (20 sources) Start: 10-23-2020 cyproheptadine (PERIACTIN) 4 MG tablet DAPTOmycin 500 mg injection (16 sources) Lipopeptide Antibacterial daptomycin (CUBICIN) 500 MG [...] sodium chloride 0.9 % 50 mL IVPB docusate sodium 50 mg / sennosides, mcc 8.6 mg oral tablet (5 sources) Start: 08-06-2022 take 1 tablet by mouth once daily senna-docusate (SENOKOT-S) 8.6-50 MG per tablet Take 1 Tablet by mouth daily. 0 08/06/2022 Active Start: 08-06-2022 take 1 tablet by jacobo th in the morning sennosides-docusate sodium (SENOKOT-S) 8.6-50 mg Take 1 tablet by mouth in the morning. 30 tablet 0 08/06/2022 Active Doxazosin (2 sources) alpha-Adrenergic Dale Start: 12-29-2020 [...] a day by oral route. 0 Active econazole nitrate 10 mg/ml topical cream (1 source) Azole Antifungal econazole nitra te 1 % cream empagliflozin 10 mg oral tablet (20 sources) Sodium-Glucose Cotransporter 2 Inhibitor Start: 05-16-2022 Jardiance 10 MG tablet 1 ml erenumab-aooe 70 mg/ml auto-injector (15 sources) Start: 12-26-2018 Erenumab-aooe (AIMOVIG) 70 MG/ML SOAJ Inject into the muscle every 30 days. 0 12/26/2018 Active ergocalciferol 1.25 mg oral capsule (7 sources) Provitamin D2 Compound Start: 04-11-2023 vitamin D2 ergocalciferol (DRISDOL) 1.25 MG (23307 UT) capsule Take by mouth. 0 04/11/2023 Active Start: 04-11-2023 take 1 capsule by [facility] every week Ergocalciferol 1.25 MG (89004 UT) 1 capsule Orally Q week for 90 days Mar, Active erythromycin 0.005 mg/mg ophthalmic ointment (7 sources) Macrolide, Macrolide Antimicrobial Start: 01-01-2023 erythromycin [...] propionate 0.05 mg/actuat metered dose nasal spray (20 sources) Corticosteroid Start: 08-02-2023 take 1 spray(s) nasal route once daily Fluticasone Propionate Active 2 SPRAY NASAL DAILY August 02, 2023 12:00am administer into each nostril Start: 04-17-2023 Fluticasone Pr opionate Active 2 SPRAY INTRANASAL Every morning April 17, 2023 12:00am Start: 01-13-2023 fluticasone (F LONASE) 50 mcg/act nasal inhaler Use in each nostril. 0 01/13/2023 Active Start: 01-13-2023 take 2 spray(s) nasa l route in the morning fluticasone propionate (FLONASE) 50 mcg/actuation nasal spray Administer 2 sprays into each nostril in the morning. 16 g 12 01/13/2023 Active take 1 spray(s) nasa l route [...] daily 60 December 24, 2019 10:24am 12-24-2019 [facility] ([id number]) 0 12/24/2019 Active Start: 12-24-2019 End: 01-27-2021 take 1 puff(s) by inhalation twice daily Fluticasone Propion-Salmeterol Discontinued 1 PUFF INHALATION Twice daily 60 December 24, 2019 12:00am January 27, 2021 1:52pm Start: 12-18-2019 End: [...] 12-28-2020 dextrose 5 % s olution guaiFENesin (3 sources) GUAIFENESIN ORAL Take by mouth every 12 hours. 0 Active take 1 tablet by jacobo th every twelve hours as needed guaiFENesin ER 1200 MG 1 tablet as neede d Orally every 12 hrs Active hydrALAZINE hydrochloride 100 mg oral tablet (5 sources) Arteriolar Vasodilator Start: 06-06-2023 take 1 tablet by mouth every eight hours hydrALAZINE (APRESOLINE) 100 mg tablet Take 1 tablet (100 mg total) by mouth every 8 (eight) hours. 90 tablet 2 06/06/2023 Active hydrALAZINE (APRESOLINE) 2 mg/mL oral suspension (1 source) Start: 07-24-2023 hydrALAZINE (APRESOLINE) 2 mg/mL oral suspension 0 Refill(s) 0 07/24/2023 Active hydroCHLOROthiazide 25 mg oral tablet (20 sources) Thiazide Diuretic Start: 12-18-2019 End: 01-27-2021 take 1 tablet by mouth once daily hydrochlorothiazide (HYDRODIURIL) 25 MG tablet TK 1 T PO QD 0 02/23/2020 Active End: 12-29-2020 hydroCHLOROthiazide (HYDRODI URIL) 50 MG tablet Take 25 mg by mouth daily 0 12/29/2020 Discontinued (Stop Taking at Discharge) sodium hypochlorite 1.25 mg/ ml topical spray (15 sources) Start: 10-07-2020 sodium hypoclh orite (DAKINS) [...] Discontinued 6 UNITS SUBCUT 3x/Day before meals 10 March 12th, 2020 12:00am January 27, 2021 1:52pm Start: 12-24-2019 [...] and bedtime December 24, 2019 10:24am 12-24-2019 [facility] ([id number]) 0 12/24/2019 Active NovoLOG FlexPen 100 UNIT/ML SOLN INJECT SUBCUTANEOUSLY DIRECTED. Quantity: 0 Refills: 0 Ordered: 17-Jan-2022 DO Active Insulin Aspart F lexPen 100 UNIT/ML as directed Subcutaneous tid Not-Taking NovoLOG 100 UNIT /ML as directed Subcutaneous Active 3 ml insulin detemir 100 unt/ml pen injector (20 sources) Insulin Analog Start: 12-24-2019 End: 06-21-2021 Insulin Detemir 100 UNIT/ML SOPN insulin detemir Insulin Detemir U-100 Active 50 UNITS Subcutaneous Daily December 24, 2019 10:24am 12-24-2019 [facility] ([id number]) 0 12/24/2019 Active Start: 12-24-2019 End: 04-21-2022 Insulin Detemir U-100 [...] August 14, 2021 5:16pm Start: 12-24-2019 End: 08-03-2023 Insulin Detemir 100 UNIT/ML SOPN insulin detemir Insulin Detemir U-100 Active 50 UNITS Subcutaneous Daily December 24, 2019 10:24am 12-24-2019 [facility] ([id number]) 0 12/24/2019 Active Start: 12-24-2019 End: 01-27-2021 Insulin Detemir U-100 (Levem ir Flextouch U-100 Insuln) 100 unit/mL (3 mL) Insulin Pen Discontinued 50 UNITS SUBCUT Daily December 24, 2019 12:00am January 27, 2021 1:52pm inject 42 [IU] by reyna bcutaneous injection in the morning insulin detemir U-100 (LEVEMIR FLEXPEN) 100 unit/mL (3 mL) insulin pen Inject 42 Units under the skin in the morning and 42 Units before bedtime. 0 Active Levemir FlexTouc h 100 UNIT/ML 40 units [...] A DAY August 02, 2023 12:00am Start: 07-27-2021 inject 2-8 [IU] by s ubcutaneous injection once daily insulin lispro (HumaLOG) 100 unit/mL insulin pen Inject 2-8 Units under the skin nightly. 15 mL 12 07/27/2021 Active Start: 07-27-2021 inject 3-18 [IU] by subcutaneous injection four times daily at mealtime insulin lispro (HumaLOG) 100 unit/mL insulin pen Inject 3-18 Units under the skin 4 (four) times a day with meals and nightly. 15 mL 12 07/27/2021 Active Start: 12-28-2020 insulin lispro (HUMALOG) injection vial 0-12 Units Start: 10-23-2020 insulin lispro , 1 Unit Dial, (HUMALOG KWIKPEN) 100 UNIT/ML SOPN injection Insulin Lispro (Humalog Kwikpen Insulin) 100 unit/mL insulin pen (4 sources) Start: 01-14-2024 Insulin Lispro (Humalog Kwikpen Insulin) 100 unit/mL insulin pen Active 0 SUBCUT .COMPLEX January 14, 2024 2:21pm subcutaneously; 10-15-20-25 units ac according to meal size. Corrective scale 1:25 ac tid (expect up to 90 units/day) Start: 12-17-2023 End: 01-14-2024 Insulin Lispro (Humalog Kwik pen Insulin) 100 unit/mL insulin pen Discontinued SUBCUT December 17, 2023 1:00am January 14, 2024 2:24pm FreeTextSi-15-20-25 units ac according to meal size. Corrective scale 1:25 ac tid Subcutaneous as directed; Note: Source Status: Taking(expect up to 90 units/day); Refills: 1; Qty: 90 Milliliter; Provider: Yovany Goldsmith ( ) Start: 12-17-2023 Insulin Lispro (Humalog Kwikpen Insulin) 100 unit/mL insulin pen Active SUBCUT December 17, 2023 1:00am FreeTextSi-15-20-25 units ac according to meal size. Corrective scale 1:25 ac tid Subcutaneous as directed; Note: Source Status: Taking(expect up to 90 units/day); Refills: 1; Qty: 90 Milliliter; Provider: Yovany Goldsmith ( ) 3 ml insulin, regular, human 500 unt/ml pen injector (15 sources) Insulin Start: 12-18-2019 insulin regula r [...] tablet isosorbide dinitrate 30 mg oral tablet (15 sources) Nitrate Vasodilator take 2 tablets by [...] 25 MCG PO Daily at 0630 30 30 January 27, 2021 12:00am August 14, 2021 5:16pm take 1 tablet by jacobo th once [...] pen injector Discontinued 0 SUBCUT .COMPLEX January 12, 2022 12:00am April 15, 2023 11:18pm 1.8mg/day liraglutide (JOAO TOZA 3-CRISTA) 0.6 mg/0.1 mL (18 mg/3 mL) pen injector Inject 0.3 mL (1.8 mg total) under the skin in the morning. 0 Active losartan potassium 50 mg oral tablet (20 sources) Angiotensin 2 Receptor Dale Start: 11-05-2023 take 1 tablet by mouth once daily Losartan Active 50 MG PO Daily December 17, 2023 1:00am FreeTextSi tablet Orally Once a day; Note: Source Status: Taking; Provider: Yovany Goldsmith ( ) Start: 04-21-2022 End: 12-17-2023 take 50 mg by mouth once daily in the morning Losartan Discontinued 50 MG PO Every morning April 21, 2022 9:50pm December 17, 2023 1:29pm Start: 02-14-2022 take 50 mg by mouth once daily Losartan Active 50 MG ORAL DAILY August 02, 2023 12:00am Start: 01-12-2022 End: 04-21-2022 take 25 mg by mouth once daily in the morning Losartan Discontinued 25 MG PO Every morning January 12, 2022 12:00am April 21, 2022 9:52pm take 1 tablet by jacboo th every twenty-four hours Losartan Potassium 100 MG 1 tablet Orally Once a day Active melatonin 10 mg oral tablet (12 sources) Start: 01-10-2022 take 20 mg by mouth at bedtime Melatonin Active 20 MG PO Bedtime January 10, 2022 12:00am Melatonin 10 MG Oral Tablet Take as directed Quantity: 0 Refills: 0 Ordered: 17-Jan-2022 DO Active take 2 tablets by mo uth once daily at bedtime melatonin 3 MG TABS tablet Take 6 mg by mouth daily At HS 0 Active methocarbamol 500 mg oral tablet (16 sources) Muscle Relaxant take 2 tablets by [...] times daily As needed spasms 0 Active metoprolol tartrate 50 mg oral tablet (20 sources) beta-Adrenergic Dale Start: 12-24-2019 End: 01-27-2021 take 1 tablet by mouth twice daily metoprolol (LOPRESSOR) 50 MG tablet TK 1 T PO BID 0 02/23/2020 Active mometasone furoate 1 mg/ml topical cream (15 sources) Corticosteroid mometasone (ELOCON) 0.1 % cream [...] daily Nicotine Active 1 PATCH TRANSDERML Daily 28 January 12, 2022 12:00am Start: 12-18-2019 nicotine (JUAN R DERM CQ) 14 mg/24HR patch Place 1 Patch on the skin. 0 12/18/2019 Active Start: 12-18-2019 End: 01-27-2021 Nicotine Discontinued 1 EACH TRANSDERML Q24H 7 December 24, 2019 12:00am January 27, 2021 1:52pm apply 1 dose transde rmal route once daily Nicotine 14 MG/24HR 1 patch to skin Transdermal Once a day Active nitroglycerin 0.4 mg sublingual tablet (20 sources) Nitrate Vasodilator Start: 12-17-2023 Nitroglyce rin Active MG SUBLINGUAL As Directed December 17, 2023 1:00am FreeTextSig: as directed Sublingual; Note: Source Status: Taking; Provider: Yovany Goldsmith ( ) Start: 06-06-2023 nitroglycerin (NITROSTAT) 0.[address] 1 tablet (0.4 mg total) under the tongue every 5 (five) minutes as needed for chest pain. 90 tablet 5 06/06/2023 Active Start: 01-12-2022 End: 04-15-2023 Nitroglycerin Discontinued 0 .4 MG SUBLINGUAL Q5M 25 January 12, 2022 12:00am April 15, 2023 11:18pm Start: 01-30-2021 nitroglycerin (NITRODUR) 0.1 mg/HR patch 0 Refill(s) 0 07/24/2023 Active Start: 01-27-2021 End: 01-12-2022 Nitroglycerin Discontinued 1 EACH TRANSDERML Daily at 0600 August 14, 2021 12:00am January 12, 2022 3:25pm Nitroglycerin 0. 4 MG as directed Sublingual Active nystatin 100 unt/mg topical powder (7 sources) Polyene Antifungal Start: 08-02-2023 Nystatin (N yamyc) 100,000 unit/gram Powder Active 1 APPLIC TOPICAL DAILY August 02, 2023 12:00am apply to stomach Start: 04-18-2023 nystatin (MYCO STATIN) 100,000 unit/g powder Apply topically. 0 04/18/2023 Active Start: 04-18-2023 Nystatin (Nyst op) 100,000 unit/gram [...] 12:00am 2 ml ondansetron 2 mg/ml injection (17 sources) Serotonin-3 Receptor Antagonist Start: 12-28-2020 End: 12-28-2020 ondansetron (ZOFRAN) injection 4 mg ondansetron (ZOF RAN-ODT) 4 MG disintegrating tablet ondansetron [address] 2 tablets twice a day by translingual route. 0 Active pantoprazole 40 mg delayed release oral tablet (6 sources) Proton Pump Inhibitor Start: 06-07-2023 pantoprazole (PROTONIX) 40 MG tablet 0 Refill(s) 0 06/07/2023 Active Pen Unity 5/16 (19 sources) Start: 02-14-2022 Pen Unity 5/ 16 Use with insulin pen needles SQ 6 times per day for 90 days February, Active Start: 02-14-2022 Pen Unity 5/ 16 Use with insulin pen needles SQ 6 times per day for 90 day(s) February, Active Pen Unity 5/16 Use with insulin pen needles SQ 6 times per day for 90 days Active phenylephrine hydrochloride 25 mg/ml ophthalmic solution (1 source) alpha-1 Adrenergic Agonist Start: 09-03-2022 End: 09-04-2022 PHENYLephrine 2.5 % 1 Drop (AK-DILATE, YVES-SYNEPHRINE) polyethylene glycol 3350 29479 mg powder for oral solution (16 sources) Osmotic Laxative Start: 06-07-2023 polyethylene glycol (GLYCOLAX) 17 gram packet Take 17 g by mouth in the morning. 30 packet 2 06/07/2023 Active Start: 08-14-2021 End: 01-10-2022 Polyethylene Glycol 3350 (Mi ralax) 17 gram Powder In Packet Discontinued 17 GM PO Daily August 14, 2021 12:00am January 10, 2022 1:40pm Start: 12-28-2020 polyethylene g lycol (GLYCOLAX) packet 17 g Polyethylene Glycol 3350 4 g PACK (1 source) Start: 07-24-2023 Polyethylene G lycol 3350 4 g PACK 0 Refill(s) 0 07/24/2023 Active potassium chloride 20 meq extended release oral tablet (20 sources) Start: 08-02-2023 take 20 mEq by mouth once daily Potassium Chloride Active 20 MEQ ORAL DAILY August 02, 2023 12:00am Start: 06-07-2023 take 1 tablet by jacobo th in the morning potassium chloride (KLOR-CON M 20) 20 MEQ CR tablet Take 1 tablet (20 mEq total) by mouth in the morning. 30 tablet 2 06/07/2023 Active Start: 07-28-2021 End: 04-15-2023 Potassium Chloride (Klor-Con M20) 20 mEq Tablet,Er Particles/Crystals Discontinued 20 MEQ PO Daily August 14, 2021 12:00am April 15, 2023 11:20pm Start: 01-27-2021 take 2 tablets by mo [facility] once daily potassium chloride SA (K-DUR) [...] MEQ PO Daily 60 January 27, 2021 12:00am July 28, 2021 2:52pm Start: 12-18-2019 End: 01-27-2021 potassium chloride SA (K-DUR ) 10 MEQ controlled release tablet Potassium Chloride Potassium Chloride Active 10 MEQ Oral Daily December 24, 2019 10:24am 12-24-2019 [facility] ([id number]) 0 12/24/2019 Active take 2 tablets by [facility] once daily Potassium Chloride Ria ER 20 MEQ Oral Tablet Extended Release TAKE 2 TABLETS DAILY. Quantity: 0 Refills: 0 Ordered: 19-Jan-2022 DO Active take 1 tablet by jacobo th every twelve hours Klor-Con 10 10 MEQ 1 tablet with food Orally Twice a day Active take 1 tablet by jcaobo th once daily, then take 1 tablet [...] 30 days E11.65 Patient has diminished vision. 11 Jan, 2022 Active Prodigy AutoCode Blood Glucose - as directed SQ 4 times a day for 365 days Patient has diminished vision. Active Prodigy AutoCode Blood Glucose - as directed In Vitro 4 times a day for 30 days E11.65 Patient has diminished vision. Active Roflumilast (17 sources) Phosphodiesterase 4 Inhibitor Start: 12-17-2023 take 1 tablet by mouth once daily Roflumilast Active 500 MCG PO Daily December 17, 2023 1:00am FreeTextSi tablet Orally Once a day; Note: Source Status: Taking; Provider: Yovany Goldsmith ( ) Start: 01-13-2023 take 1 tablet by jacobo th once daily roflumilast (DALIRESP) 500 MCG TABS tablet Take 500 mcg by mouth daily. 0 01/13/2023 Active take 1 tablet by jacobo th every twenty-four hours Roflumilast 500 MCG 1 tablet Orally Once a day Active Roflumilast 0.3 % CREA (1 source) Start: 07-24-2023 Roflumilast 0. 3 % CREA 500 mcg. 0 07/24/2023 Active rOPINIRole 2 mg oral tablet (20 sources) Nonergot Dopamine Agonist Start: 04-17-2023 take 2 mg by mouth three times daily Ropinirole Active 2 MG PO [...] PO Three times daily December 24, 2019 12:00am January 27, 2021 1:52pm Start: 12-18-2019 End: 12-24-2019 take 1.5 mg by mouth three times daily Ropinirole Discontinued 1.5 MG PO Three times daily December 18, 2019 1:00am December 24, 2019 5:24pm take 1 tablet by jacobo th once daily at bedtime rOPINIRole HCl 0.5 MG 1 tablet 1 to 3 hours before bedtime Orally Once a day Active sacubitril 24 mg / valsartan 26 mg oral tablet (2 sources) Angiotensin 2 Receptor Dale Start: 01-19-2022 sacubitril-valsartan (ENTRESTO) 24-26 MG TABS tablet Take by mouth every 12 (twelve) hours. 0 01/19/2022 Active Start: 01-19-2022 take 1 tablet by jacobo th twice daily Entresto 24-26 MG Oral Tablet TAKE 1 TABLET BY MOUTH TWICE A DAY Quantity: 180 Refills: 3 Ordered: 19-Jan-2022 Jaylen Sarmiento DO Start : 19-Jan-2022 Active new start Sennosides (Senna Lax) 8.6 mg Tablet (18 sources) Start: 08-14-2021 take 2 tablets by [...] mg Tablet Discontinued 2 TAB PO DAILY@12 December 24, 2019 10:24am January 27, 2021 1:52pm Start: 12-24-2019 End: 01-27-2021 take 2 tablets by mouth once daily Sennosides (Senna Lax) 8.6 mg Tablet Discontinued 2 TAB PO DAILY@December 23, 2019 11:00pm January 27, 2021 12:52pm Start: 12-24-2019 End: 01-27-2021 take 2 tablets by mouth once daily Sennosides (Senna Lax) 8.6 mg Tablet Discontinued 2 TAB PO DAILY@12 60 December 24, 2019 12:00am January 27, 2021 1:52pm sennosides, mcc 8.6 mg oral tablet (16 sources) Start: 12-24-2019 senna (SENOKOT ) 8.6 MG TABS tablet sennosides, FDC Sennosides Active 2 TAB Oral DAILY@12 60 December 24, 2019 10:24am 12-24-2019 [facility] ([id number]) 0 12/24/2019 Active take 2 tablets by mo ut every twenty-four hours Senna Laxative 8.6 MG 2 tablets at bedtime as needed Orally Once a day Active 3 ml sodium chloride 9 mg/ml injection (6 sources) Start: 12-28-2020 0.9 % sodium c hloride infusion Start: 12-28-2020 sodium chlorid e flush 0.9 % injection 10 mL sodium phosphate, dibasic 35.5 mg/ml / sodium phosphate, monobasic 96.4 mg/ml enema (15 sources) sodium phosphate -dibasic sodium phosphate (fleets) 7-19 GM/118ML ENEM enema Fleet Enema Extra 19 gram-7 gram/197 mL Insert by rectal route. 0 Active sodium zirconium cyclosilicate 5000 mg powder for oral suspension (2 sources) Start: 01-13-20 24 Sodium Zirconium Cyclosilicate (Lokelma) 5 gram powder in packet Active 5 GM PO Daily 2 January 13, 2024 12:00am tamsulosin hydrochloride 0.4 mg oral capsule (7 sources) alpha-Adrenergi c Dale Start: 06-06-20 23 take 1 capsule by mouth at bedtime tamsulosin (FLOMAX) 0.4 MG capsule See Instructions, Instructions: TAKE 1 CAPSULE BY MOUTH AT BEDTIME, # 28 cap(s), 0 Refill(s), Pharmacy: [facility] - , TAKE 1 CAPSULE BY MOUTH AT BEDTIME 0 06/06/2023 Active terazosin 2 mg oral capsule (20 sources) alpha-Adrenergi c Dale Start: 01-14-20 21 End: 04-15-20 terazosin (HYTRIN) 2 MG capsule Indications: Proliferative diabetic retinopathy of both eyes associated with type 2 diabetes mellitus, unspecified proliferative retinopathy type (HCC) , Vitreous hemorrhage of left eye (HCC) Take 2 mg by mouth daily. 0 01/27/2021 Active Terazosin HCl 2 MG TABS TAKE 1 TABLET DAILY. Quantity: 0 Refills: 0 Ordered: 17-Jan-2022 DO Active tiZANidine 2 mg oral tablet (15 sources) Central alpha-2 Adrenergic Agonist Start: 12-30-2018 [...] as needed Orally Once a day Active tropicamide 10 mg/ml ophthalmic solution (1 source) Anticholinergic Start: 09-03-2022 End: 09-04-2022 tropicamide 1 % 1 Drop (MYDRIACYL) varenicline (16 sources) Partial Cholinergic Nicotinic Agonist Start: 02-24-2020 CHANTIX STARTING MONTH CRISTA 0.5 MG X 11 & 1 MG X 42 tablet TK UTD 0 02/24/2020 Active Chantix Active Completed/Discontinued Medications Medication Drug Class(es) Dates Sig (Normalized) Sig (Original) acetaminophen 500 mg oral capsule (20 sources) Start: 12-17-2023 End: 01-14-2024 take 1 tablet by mouth every four hours as needed for pain Acetaminophen Discontinued MG PO As Directed December 17, 2023 1:00am January 14, 2024 2:24pm FreeTextSig: as directed Orally; Note: Source Status: Taking1 tablet by mouth every 4 hours as needed for pain; Provider: Yovany Goldsmith ( ) Start: 07-24-2023 acetaminophen (Acetaminophen 8 Hour) 650 MG CR tablet 0 Refill(s) 0 07/24/2023 Active Start: 12-28-2020 acetaminophen (TYLENOL) tablet 650 mg Start: 12-28-2020 acetaminophen (TYLENOL) tablet 650 mg Start: 12-24-2019 End: 04-15-2023 acetaminophen (TYLENOL) 500 MG tablet 500 mg. 0 12/24/2019 Active take 3 tablets by mo ut in the morning, then take 3 tablets by mouth every eight hours at bedtime acetaminophen (TYLENOL ARTHRITIS) 650 mg 8 hr tablet Take 3 tablets (1,950 mg total) by mouth in the morning and 3 tablets (1,950 mg total) before bedtime. 0 Active [facility] every four hours as needed for pain Acetaminophen 500 MG as directed Orally 1 tablet by mouth every 4 hours as needed for pain Active ascorbic acid 500 mg oral tablet (20 sources) Vitamin C Start: 12-17-2023 End: 01-14-2024 take 1 tablet by mouth once daily Ascorbic Acid (Vitamin C) Discontinued 1 TAB PO Daily December 17, 2023 1:00am January 14, 2024 2:24pm FreeTextSi tablet Orally Once a day; Note: Source Status: Taking; Provider: Yovany Goldsmith ( ) Start: 08-02-2023 take 500 mg by mouth once kimmie y Ascorbic Acid (Vitamin C) Active 500 MG ORAL DAILY August 02, 2023 12:00am Start: 01-27-2021 take 2 tablets by mo [facility] once daily vitamin C (ASCORBIC ACID) 500 [...] 0 Refills: 0 Ordered: 17-Jan-2022 DO Active bacitracin 0.5 unt/mg topica l ointment (20 sources) Start: 12-24-2019 End: 01-27-2021 Bacitracin Discontinued 1 AP PLIC TOPICAL Daily December 24, 2019 5:24pm January 27, 2021 1:52pm Start: 12-24-2019 bacitracin 500 UNIT/GM ointment Bacitracin Bacitracin Active 1 APPLIC Topical Daily December 24, 2019 5:24pm 12-24-2019 [facility] ([id number]) 0 12/24/2019 Active Start: 12-24-2019 bacitracin 500 UNIT/GM ointment Bacitracin Bacitracin Active 1 APPLIC Topical Daily December 24, 2019 5:24pm 12-24-2019 [facility] ([id number]) 0 12/24/2019 Active Bacitracin Activ e bevacizumab [...] bevacizumab (AVASTIN) 1.25MG /0.05 mL intravitreal injection carvedilol 12.5 mg oral tablet (20 sources) [...] April 17, 2023 2:25pm Start: 12-29-2020 take 1 tablet by jacobo th twice daily at mealtime Carvedilol Active 25 MG PO Twice daily December 17, 2023 1:00am FreeTextSi tablet with food Orally Twice a day; Note: Source Status: Taking; Provider: Yovany Goldsmith ( ) take 2 tablets by mo uth twice daily CARvedilol (COREG) 12.5 MG tablet carvedilol 12.5 mg tablet Take 2 tablets twice a day by oral route. 0 Active cefepime (10 sources) Cephalosporin Antibacterial Start: 06-21-2021 End: 08-14-2021 [...] 21, 2021 12:00am August 14, 2021 5:16pm cefepime (MAXIPI ME) 2 g injection 2 g every 8 hours. 0 Active docusate sodium 100 mg oral capsule (20 sources) Start: 08-14-2021 End: 01-10-2022 take 1 capsule by mouth three times daily Docusate Sodium (Dok) 100 mg Capsule Discontinued 100 MG PO Three times daily 90 August 14, 2021 12:00am January 10, 2022 1:40pm Start: 02-23-2020 DOK 100 MG cap mikki TK 1 C PO QD 0 02/23/2020 Active Start: 12-24-2019 End: 01-27-2021 take 1 capsule by mouth twice daily Docusate Sodium (Dok) 100 mg Capsule Discontinued 100 MG PO Twice daily 60 December 24, 2019 12:00am January 27, 2021 1:52pm gabapentin 300 mg oral capsule (9 sources) Anti-epileptic Agent Start: 08-14-2021 End: 01-10-2022 take 300 mg by mouth twice daily Gabapentin Discontinued 300 MG PO Twice daily 60 August 14, 2021 12:00am January 10, 2022 1:40pm Insulin Detemir U-100 (Levemir Flexpen) 100 unit/mL (3 mL) insulin pen (3 sources) Start: 12-17-2023 End: 01-14-2024 Insulin Detemir U-100 (Levemir Flexpen) 100 unit/mL (3 mL) insulin pen Discontinued UNIT SUBCUT December 17, 2023 1:00am January 14, 2024 2:22pm FreeTextSi units Subcutaneous bid; Note: Source Status: Taking(titrate up to max 90 units/day); Refills: 1; Qty: 90 Milliliter; Provider: Yovany Goldsmith ( ) Start: 12-17-2023 Insulin Detemi r U-100 (Levemir Flexpen) 100 unit/mL (3 mL) insulin pen Active UNIT SUBCUT December 17, 2023 1:00am FreeTextSi units Subcutaneous bid; Note: Source Status: Taking(titrate up to max 90 units/day); Refills: 1; Qty: 90 Milliliter; Provider: Yovany Goldsmith ( ) Insulin Detemir U-100 (Levem ir Flextouch U100 Insulin) 100 unit/mL (3 mL) insulin pen (5 sources) Start: 04-21-2022 End: 04-17-2023 Insulin Detemir [...] mL metFORMIN hydrochloride 1000 mg oral tablet (10 sources) Biguanide Start: 06-21-2021 End: 08-14-2021 take 1000 mg by mouth twice daily Metformin Discontinued 1000 MG PO Twice daily June 21, 2021 12:00am August 14, 2021 5:16pm metOLazone 2.5 mg oral tablet (20 sources) Thiazide-like Diuretic Start: 04-15-2023 End: 01-14-2024 take 2.5 mg by mouth once Metolazone Discontinued 2.5 MG PO every Saturday, Saturday, and Saturday April 15, 2023 12:00am January 14, 2024 2:21pm Start: 04-09-2023 metOLazone 2.5 MG 1 tablet Orally 1 tablet every SAT - SAT - SAT for 90 days Mar, Active take 1 tablet by jacobo th once daily for edema metOLazone (ZAROXOLYN) 2.5 MG tablet Take 2.5 mg by mouth daily By mouth every Saturday and for edema 0 Active 1 ml morphine sulfate 2 mg/ml cartridge (1 source) Opioid Agonist Start: 12-28-2020 End: 12-28-2020 morphine (PF) injection 2 mg oxyCODONE hydrochloride 5 mg oral tablet (20 sources) Opioid Agonist Start: 07-28-2021 End: 01-10-2022 take 5 mg by mouth every four hours Oxycodone Discontinued 5 MG PO Every 4 hours 12 05August 14, 2021 January 10, 2022 1:40pm Start: 01-27-2021 End: 07-28-2021 take 5 mg by mouth every six hours Oxycodone Discontinued 5 MG PO Every 6 hours 10 05January 27, 2021 July 28, 2021 2:52pm Start: [...] PO Daily at bedtime January 27, 2021 12:00am August 14, 2021 5:16pm Start: 09-26-2020 take 1 capsule by mo [facility] three times daily pregabalin (LYRICA) 75 MG capsule Take 75 mg by mouth 3 times daily. 0 09/26/2020 Active sodium polystyrene sulfonate 250 mg/ml oral suspension (1 source) Start: 12-29-2020 End: 12-29-2020 sodium polystyrene (KAYEXALATE) 15 GM/60ML suspension 15 g traZODone hydrochloride 50 mg oral tablet (20 sources) Serotonin Reuptake Inhibitor Start: 04-16-2023 End: 04-17-2023 Trazodone Discontinued MG TABLET April 16, 2023 12:00am April 17, 2023 2:25pm Start: 02-24-2020 End: 04-15-2023 take 1 tablet by mouth once daily in the evening trazodone (DESYREL) 50 mg tablet TK 1 T PO QPM 0 02/24/2020 Active unable to verify (2 sources) Start: 01-13-2024 End: 01-14-2024 unable to verify Discontinue d January 13, 2024 12:00am January 14, 2024 2:20pm Start: 01-13-2024 unable to veri fy Active January 13, 2024 12:00am valsartan 320 mg oral tablet (20 sources) Angiotensin 2 Receptor Dale Start: 12-29-2020 take 320 mg by mouth once daily 320 mg, Oral, DAILY, First dose on Lore 12/29/20 at 1000 Start: 07-15-2020 End: 08-14-2021 take 1 tablet by mouth once daily valsartan (DIOVAN) 320 MG tablet TK 1 T PO QD 0 07/15/2020 Active zolpidem tartrate 5 mg oral tablet (20 sources) gamma-Aminobutyric Acid-ergic Agonist Start: 12-18-2019 End: 12-24-2019 take 1 tablet by mouth once daily at bedtime Zolpidem (Ambien) 5 mg Tablet Discontinued 5 MG PO Daily at bedtime December 18, 2019 1:00am December 24, 2019 5:24pm Start: 01-01-2019 zolpidem (Ambi en) 10 MG tablet Take by mouth. 0 01/01/2019 Active Problems Active Problems Problem Classification Problem Date Documented Date Episodic/Chronic Abdominal pain (3 sources) Generalized abdominal pain; Translations: [Generalized abdominal pain] Onset: 12-12-2023 Episodic Acute cerebrovascular disease (20 sources) Cerebrovascular accident; Translations: [Cerebral infarction, unspecified] Onset: 0 01-14-2021 Chronic Acute myocardial infarction (10 sources) Subsequent non-ST segment elevation myocardial infarction; Translations: [Subendocardial infarction, episode of care unspecified] Onset: 3 05-29-2023 Chronic Administrative/social admission (20 sources) Other reduced mobility; Translations: [Impaired mobility and activities of daily living] Onset: 1 Resolved: 2 12-19-2019 Episodic Allergic reactions (1 source) Allergy status to other drugs, medicaments and biological substances status; Translations: [ALLERGY STATUS OTH RX MED AND BIO SUBST] Onset: 3 Episodic Anxiety disorders (13 sources) Mixed anxiety and depressive disorder; Translations: [Anxiety disorder, unspecified] Onset: 4 07-29-2021 Chronic Asthma (2 sources) Unspecified asthma, uncomplicated; Translations: [Asthma] Onset: 2 01-29-2024 Chronic Blindness and vision defects (3 sources) Bilateral myopia of eyes; Translations: [Myopia, bilateral] Episodic Chronic kidney disease (20 sources) Chronic kidney disease stage 3; Translations: [Stage 3 chronic kidney disease] Onset: 3 07-29-2021 Chronic Chronic kidney disease (3 sources) Chronic kidney disease; Translations: [CHRONIC KIDNEY DISEASE STAGE 3A] Onset: 3 Chronic obstructive pulmonary disease and bronchiectasis (3 sources) Chronic obstructive pulmonary disease, unspecified; Translations: [Chronic obstructive pulmonary disease with (acute) exacerbation] Onset: 3 Chronic Coagulation and hemorrhagic disorders (1 source) Disorder of hemostatic system; Translations: [Coagulation defect, unspecified] Onset: 4 01-29-2024 Chronic Complications of surgical procedures or medical care (19 sources) Infection of amputation stump; Translations: [Infection of amputation stump, unspecified extremity] Onset: 1 06-18-2021 Episodic Conditions associated with dizziness or vertigo (6 sources) Lightheadedness; Translations: [Dizziness and giddiness] 01-13-2024 Episodic Congestive heart failure; nonhypertensive (19 sources) Heart failure, unspecified; Translations: [Acute on chronic diastolic (congestive) heart failure] Onset: 3 Resolved: 3 Chronic Coronary atherosclerosis and other heart disease (19 sources) Coronary arteriosclerosis; Translations: [Coronary atherosclerosis of unspecified type of vessel, [place] or graft] Onset: 3 05-29-2023 Chronic Deficiency and other anemia (1 source) Anemia in chronic kidney disease; Translations: [Anemia of renal disease] Chronic Deficiency and other anemia (5 sources) Anemia of renal disease; Translations: [Anemia in chronic kidney disease] Chronic Deficiency and other anemia (9 sources) Anemia; Translations: [Anemia, unspecified] 01-14-2021 Episodic Diabetes mellitus with complications (20 sources) Neuropathy due to diabetes mellitus; Translations: [Type 2 diabetes mellitus with diabetic neuropathy, unspecified] Onset: 1 Resolved: 2 07-29-2021 Chronic Diabetes mellitus without complication (20 sources) Diabetes mellitus; Translations: [Type 2 diabetes mellitus without complications] Onset: 0 12-19-2019 Chronic Diabetes mellitus without complication (1 source) Hyperglycemia, unspecified; Translations: [Hyperglycemia, unspecified] Onset: 4 Episodic Diseases of white blood cells (3 sources) Leukocytosis; Translations: [Elevated white blood cell count, unspecified] Onset: 3 08-03-2023 Chronic Disorders of lipid metabolism (20 sources) Mixed hyperlipidemia; Translations: [Mixed hyperlipidemia] Onset: 1 Resolved: 2 Chronic Essential hypertension (20 sources) Hypertensive disorder; Translations: [Essential (primary) hypertension] Onset: 6 Resolved: 2 12-19-2019 Chronic Fever of unknown origin (1 source) Fever, unspecified; Translations: [Fever, unspecified] Onset: 4 Episodic Fluid and electrolyte disorders (10 sources) Dehydration; Translations: [Dehydration] Onset: 3 04-16-2023 Episodic Headache; including migraine (1 source) Migraine; Translations: [Migraine, unspecified, not intractable, without status migrainosus] Onset: 4 01-29-2024 Chronic Headache; including migraine (11 sources) Headache; Translations: [Headache] 01-14-2021 Episodic Headache; including migraine (2 sources) Headache; including migraine; Translations: [HEADACHE UNSPECIFIED] Onset: 2 Hyperplasia of prostate (15 sources) Benign prostatic hyperplasia; Translations: [Benign prostatic hyperplasia without lower urinary tract symptoms] Onset: 3 01-14-2021 Chronic Hypertension with complications and secondary hypertension (20 sources) Hypertensive emergency; Translations: [Hypertensive emergency] Onset: 2 01-11-2022 Chronic Immunity disorders (20 sources) Pulmonary sarcoidosis; 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] Onset: 6 01-25-2020 Chronic Infective arthritis and osteomyelitis (except that caused by tuberculosis or sexually transmitted disease) (5 sources) Acute osteomyelitis of foot; Translations: [Other acute osteomyelitis, unspecified ankle and foot] Onset: 1 01-02-2021 Chronic Inflammation; infection of eye (except that caused by tuberculosis or sexually transmitteddisease) (2 sources) Bilateral viral conjunctivitis; Translations: [Viral conjunctivitis, unspecified] Episodic Menopausal disorders (1 source) Hormone replacement therapy; Translations: [HORMONE REPLACEMENT THERAPY] Onset: 3 Episodic Mood disorders (3 sources) Recurrent major depressive episodes, moderate ; Translations: [Major depressive affective disorder, recurrent episode, moderate] Onset: 4 01-29-2024 Chronic Nonspecific chest pain (20 sources) Chest [...] Long-term current use of insulin; Translations: [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) use of insulin] Episodic Other aftercare (4 sources) custodial (current) use of insulin; Translations: [terminal operations supervisor current use of insulin Z79.4] Onset: 1 Resolved: 2 Episodic Other aftercare (1 source) 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) use of antithrombotics/antiplat elets; Translations: [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[employer] 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 UNLOADER ANTITHROMBOT/ANTIPLATLET S] Onset: 3 Episodic Other aftercare (1 source) 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) use of aspirin; Translations: [HALF-WAY CURRENT USE OF ASPIRIN] Onset: 3 Episodic Other aftercare (1 source) 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) use of oral hypoglycemic drugs; Translations: [HALF-WAY USE ORAL HYPOGLYCEMIC DX] Onset: 3 Episodic Other aftercare (1 source) Other half-way (current) drug therapy; Translations: [OTH HALF-WAY CURRENT DRUG THERAPY] Onset: 3 Episodic Other and ill-defined heart disease (1 source) Cardiomegaly; Translations: [Cardiomegaly] 01-30-2024 Chronic Other and ill-defined heart disease (1 source) Cardiomegaly; Translations: [Cardiomegaly] Onset: 4 Chronic Other bone disease and musculoskeletal deformities (14 sources) History of amputation of right leg through tibia and fibula; Translations: [Acquired absence of right leg below knee] Onset: 1 07-29-2021 Chronic Other bone disease and musculoskeletal deformities (6 sources) Acquired absence of right leg below knee; Translations: [Below knee amputation status] Onset: 2 Resolved: 2 Chronic Other bone disease and musculoskeletal deformities (20 sources) Absence of lower limb; Translations: [Acquired absence of right leg below knee] Chronic Other bone disease and musculoskeletal deformities (5 sources) History of amputation of right foot; Translations: [Acquired absence of right foot] Onset: 1 01-03-2021 Chronic Other circulatory disease (9 sources) History of cerebrovascular accident; Translations: [Personal history of transient ischemic attack (TIA), and cerebral infarction without residual deficits] 07-29-2021 Episodic Other circulatory disease (20 sources) History of cerebrovascular accident without residual deficits; Translations: [Personal history of transient ischemic attack (TIA), and cerebral infarction without residual deficits] Episodic Other circulatory disease (2 sources) Low blood pressure; Translations: [Hypotension, unspecified] 01-13-2024 Episodic Other connective tissue disease (3 sources) [...] [Hypoglycemia, unspecified] Onset: 3 08-03-2023 Chronic Other eye disorders (1 source) Hemorrhage of left vitreous body; Translations: [Vitreous hemorrhage, left eye] Onset: 4 01-02-2024 Chronic Other gastrointestinal disorders (5 sources) Chronic idiopathic constipation; Translations: [Chronic idiopathic constipation] Onset: 4 12-12-2023 Chronic Other gastrointestinal disorders (9 sources) Constipation; Translations: [Constipation, unspecified] 08-04-2021 Episodic Other gastrointestinal disorders (1 source) Other specified symptoms and signs involving the digestive system and abdomen; Translations: [Other specified symptoms and signs involving the digestive system and abdomen] Onset: 4 Episodic Other hereditary and degenerative nervous system conditions (1 source) Restless legs syndrome; Translations: [RESTLESS LEGS SYNDROME] Onset: 3 Chronic Other injuries and conditions due to external causes (1 source) Hypothermia; Translations: [Hypothermia, initial encounter] 08-03-2023 Episodic Other injuries and conditions due to external causes (2 sources) Hypothermia, initial encounter; Translations: [Hypothermia] Onset: 3 08-03-2023 Episodic Other lower respiratory disease (20 sources) Dyspnea; Translations: [Shortness of breath] Onset: 6 01-25-2020 Episodic Other lower respiratory disease (1 source) Chronic cough; Translations: [Chronic cough] Onset: 4 01-29-2024 Episodic Other lower respiratory disease (1 source) Shortness of breath; Translations: [Shortness of breath] Onset: 4 Episodic Other nervous system disorders (12 sources) Disorder of autonomic nervous system; Translations: [Disorder of the autonomic nervous system, unspecified] 01-14-2021 Chronic Other nervous system disorders (9 sources) Phantom limb syndrome with pain; Translations: [Phantom limb syndrome with pain] 07-29-2021 Chronic Other nervous system disorders (20 sources) Phantom pain following amputation of lower limb; Translations: [Phantom limb syndrome with pain] Chronic Other nervous system disorders (3 sources) Phantom limb syndrome with pain Onset: 2 Resolved: 2 Chronic Other nervous system disorders (9 sources) Postoperative pain ; Translations: [Other acute postprocedural pain] 01-27-2021 Episodic Other nutritional; endocrine; and metabolic disorders (9 sources) Obese class I; Translations: [Obesity, unspecified] 12-19-2019 Chronic Other nutritional; endocrine; and metabolic disorders (10 sources) Body mass index 30+ - obesity; [...] adult Onset: 2 Resolved: 2 Chronic Other nutritional; endocrine; and metabolic disorders (1 source) Body mass index (BMI) 37.0-37.9, adult; Translations: [Body mass index (BMI) 37.0-37.9, adult] Onset: 4 Chronic Other screening for suspected conditions (not mental disorders or infectious disease) (9 sources) Other specified abnormal findings of blood chemistry; Translations: [Other abnormal findings on diagnostic imaging of central nervous system] Onset: 3 01-19-2023 Episodic Other skin disorders (9 sources) Mass of neck; Translations: [Localized swelling, mass and lump, neck] 06-18-2021 Episodic Paralysis (9 sources) Right hemiplegia; Translations: [Hemiplegia, unspecified affecting right dominant side] 07-29-2021 Chronic Parkinson`s disease (12 sources) Parkinson's disease; Translations: [Parkinson's disease] 01-14-2021 Chronic Peripheral and visceral atherosclerosis (14 sources) Peripheral vascular disease; Translations: [Peripheral vascular disease, unspecified] Onset: 4 01-14-2021 Chronic Peripheral and visceral atherosclerosis (1 source) Atherosclerosis of artery of lower limb; Translations: [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 (HCC)] Residual codes; unclassified (12 sources) Obstructive sleep apnea syndrome; Translations: [Obstructive sleep apnea (adult) (pediatric)] 01-14-2021 Chronic Residual codes; unclassified (1 source) Sleep apnea, unspecified; Translations: [SLEEP APNEA UNSPECIFIED] Onset: 3 Chronic Residual codes; unclassified (1 source) Sleep apnea; Translations: [Sleep apnea, unspecified] Onset: 4 01-29-2024 Chronic Residual codes; unclassified (9 sources) Tobacco user; Translations: [Tobacco use] 01-14-2021 Episodic Residual codes; unclassified (9 sources) Patient encounter status; Translations: [Encounter for [...] [Altered mental status] Onset: 3 08-03-2023 Episodic Retinal detachments; defects; vascular occlusion; and retinopathy (1 source) Degenerative disorder of macula ; Translations: [Unspecified macular degeneration] Onset: 4 01-29-2024 Chronic Septicemia (except in labor) (1 source) Sepsis, unspecified organism; Translations: [Sepsis, unspecified organism] Onset: 4 Episodic Substance-related disorders (14 sources) Smokes tobacco daily; Translations: [Tobacco use disorder] Onset: 0 05-29-2023 Chronic Comment on above: 1/2 ppd; Thyroid disorders (19 sources) Hypothyroidism; Translations: [Hypothyroidism, unspecified] Onset: 3 07-29-2021 Chronic Unclassified (1 source) CHRN KIDNEY DISEASE STG 3 UNSP; Translations: [CHRN KIDNEY DISEASE STG 3 UNSP] Onset: 3 Unclassified (4 sources) CONTACT W/AND (SUSP) EXPOS COVID-19; Translations: [CONTACT W/AND (SUSP) EXPOS COVID-19] Onset: 3 Unclassified (1 source) Pre-op Exam Onset: 4 Unclassified (1 source) Low Blood Pressure, Chest pain Onset: 4 Past or Other Problems Problem Classification Problem Date Documented Date Episodic/Chronic Acute and unspecified renal failure (17 sources) Injury of kidney; Translations: [Acute kidney failure, unspecified] Onset: 03-12-2023 08-14-2021 Episodic Deficiency and other anemia (6 sources) Iron deficiency anemia; Translations: [Iron deficiency anemia, unspecified] Onset: 01-20-2023 01-20-2023 Episodic Immunizations and screening for infectious disease (1 source) Contact with and (suspected) exposure to other viral communicable diseases Onset: 08-29-2021 Resolved: 08-29-2021 Episodic Lymphadenitis (1 source) Localized enlarged lymph nodes; Translations: [LOCALIZED ENLARGED LYMPH NODES] Onset: 10-18-2022 Episodic Mood disorders (5 sources) Mood disorders Onset: 05-28-2023 05-28-2023 Nausea and vomiting (8 sources) Nausea and vomiting; Translations: [Nausea with vomiting, unspecified] Onset: 05-27-2023 06-03-2023 Episodic Other circulatory disease (7 sources) Vascular disorder; Translations: [Other disorder of circulatory system] Onset: 12-28-2020 12-28-2020 Episodic Other circulatory disease (2 sources) Personal history of transient ischemic attack (TIA), and cerebral infarction without residual deficits; Translations: [Status post CVA Z86.73] Onset: 07-10-2021 Resolved: 07-10-2021 Episodic Other circulatory disease (6 sources) History of cerebrovascular disease; Translations: [Personal history of transient ischemic attack (TIA), and cerebral infarction without residual deficits] Onset: 01-05-2021 05-26-2023 Episodic Other injuries and conditions due to external causes (5 sources) Open wound with complication; Translations: [Other injury of unspecified body region, initial encounter] Onset: 02-16-2022 02-16-2022 Episodic Other nervous system disorders (5 sources) Finding related to ability to move; Translations: [Other abnormalities of gait and mobility] Onset: 01-26-2021 05-26-2023 Episodic Residual codes; unclassified (1 source) Procedure and treatment not carried out because of patient's decision for other reasons; Translations: [PROC AND TX NOT CARRIED OUT PT OTH RSN] Onset: 08-02-2022 Episodic Residual codes; unclassified (5 sources) Finding of systemic arterial pressure; Translations: [Other general symptoms and signs] Onset: 10-04-2020 10-05-2020 Episodic Respiratory failure; insufficiency; arrest (adult) (1 [...] Test Name Value Interpretation Reference Range Facility Patient Letteron 02-24-2024 Patient Letter [id number] TIFF [facility] Outside Recordson 02-18-2024 Outside Records [id number] TGTIFF [facility] BASIC METABOLIC PANLon 02-12 Anion gap [Moles/Vol] 10 mmol/L Normal 5-15 [facility] Comment on above: Performed By: #### 2 157-6, 2823-3, 3274-8 #### [facility] ([id number]) [address] [place] [address] Calcium [Mass/Vol] 8.9 mg/dL Normal 8.5-10.5 [facility] Comment on above: Performed By: #### 2 157-6, 2823-3, 3274-8 #### [facility] ([id number]) [address] [place] [address] Chloride [Moles/Vol] 99 mmol/L Normal 98-109 [facility] Comment on above: Performed By: #### 2 157-6, 2823-3, 3274-8 #### [facility] ([id number]) [address] [place] [address] CO2 [Moles/Vol] 29 mmol/L Normal 22-32 [facility] Comment on above: Performed By: #### 2 157-6, 2823-3, 3273-8 #### [facility] ([id number]) [address] [place] [address] Creatinine [Mass/Vol] 2.75 mg/dL High 0.70-1.20 [facility] Comment on above: Result Comment: METH OD TRACEABLE TO IDMS STANDARD Performed By: #### 2 157-6, 2823-3, 4-8 #### [facility] ([id number]) [address] [place] [address] GFR/1.73 sq M.predicted among non-blacks MDRD (S/P/Bld) [Vol rate/Area] 27 mL/min/{1.73_m2} Low >59 [facility] Comment on above: Result Comment: Reported eGFR is based on the CKD-EPI 2020 equation that does not use a race coefficient. Performed By: #### 2 157-6, 2823-3, 3274-8 #### [facility] ([id number]) [address] [place] [address] Glucose [Mass/Vol] 147 mg/dL High 65-99 [facility] Comment on above: Performed By: #### 2 157-6, 2823-3, 4-8 #### [facility] ([id number]) [address] [place] [address] Potassium [Moles/Vol] 3.7 mmol/L Normal 3.5-5.0 [facility] Comment on above: Performed By: #### 2 157-6, 2823-3, 4-8 #### [facility] ([id number]) [address] [place] [address] Sodium [Moles/Vol] 138 mmol/L Normal 134-146 [facility] Comment on above: Performed By: #### 2 157-6, 2823-3, 3273-8 #### [facility] ([id number]) [address] [place] [address] Urea nitrogen [Mass/Vol] 63 mg/dL High 5-23 [facility] Comment on above: Performed By: #### 2 157-6, 2823-3, 3273-8 #### [facility] ([id number]) [address] [place] [address] Glucose Glucometer (BldC) [M ass/Vol]on 02-13-2024 Glucose [Mass/Vol] 110 mg/dL High 65-99 [facility] Office/Clinic Noteon 024 Office/Clinic Note Phoned [facility] at [phone] for a verbal order stating Dr Tenorio would be following and signing Home Health orders for Patient's PT/OT. Last office note was also faxed to [facility] at [phone] per request. Erica Kulkarni [facility] RENAL PANELon 02-13-2024 Albumin [Mass/Vol] 3.2 g/dL Normal 3.2-5.3 [facility] Comment on above: Performed By: #### 2 157-6, 2823-3, 3274-8 #### [facility] ([id number]) [address] [place] [address] Anion gap [Moles/Vol] 10 mmol/L Normal 5-15 [facility] Comment on above: Performed By: #### 2 157-6, 2823-3, 3273-8 #### [facility] ([id number]) [address] [facility] [place] [address] Calcium [Mass/Vol] 8.8 mg/dL Normal 8.5-10.5 [facility] Comment on above: Performed By: #### 2 157-6, 2823-3, 3273-8 #### [facility] ([id number]) [address] [place] [address] Chloride [Moles/Vol] 98 mmol/L Normal 98-109 [facility] Comment on above: Performed By: #### 2 157-6, 2823-3, 3273-8 #### [facility] ([id number]) [address] [place] [address] CO2 [Moles/Vol] 28 mmol/L Normal 22-32 [facility] Comment on above: Performed By: #### 2 157-6, 2823-3, 3273-8 #### [facility] ([id number]) [address] [facility] [place] [address] Creatinine [Mass/Vol] 2.77 mg/dL High 0.70-1.20 [facility] Comment on above: Result Comment: METH OD TRACEABLE TO IDMS STANDARD Performed By: #### 2 157-6, 2823-3, 4-8 #### [facility] ([id number]) [address] [facility] [place] [address] GFR/1.73 sq M.predicted among non-blacks MDRD (S/P/Bld) [Vol rate/Area] 27 mL/min/{1.73_m2} Low >59 [facility] Comment on above: Result Comment: Reported eGFR is based on the CKD-EPI 2020 equation that does not use a race coefficient. Performed By: #### 2 157-6, 2823-3, 3274-8 #### [facility] ([id number]) [address] [address] Glucose [Mass/Vol] 144 mg/dL High 65-99 [facility] Comment on above: Performed By: #### 2 157-6, 2823-3, 4-8 #### [facility] ([id number]) [address] [place] [address] Phosphate [Mass/Vol] 5.0 mg/dL High 2.4-4.9 [facility] Comment on above: Performed By: #### 2 157-6, 2823-3, 4-8 #### [facility] ([id number]) [address] [place] [address] Potassium [Moles/Vol] 3.7 mmol/L Normal 3.5-5.0 [facility] Comment on above: Performed By: #### 2 157-6, 2823-3, 3273-8 #### [facility] ([id number]) [address] [address] Sodium [Moles/Vol] 136 mmol/L Normal 134-146 [facility] Comment on above: Performed By: #### 2 157-6, 2823-3, 3274-8 #### [facility] ([id number]) [address] [address] Urea nitrogen [Mass/Vol] 63 mg/dL High 5-23 [facility] Comment on above: Performed By: #### 2 157-6, 2823-3, 327-8 #### [facility] ([id number]) [address] [address] Glucose Glucometer (BldC) [M ass/Vol]on 02-12-2024 Glucose [Mass/Vol] 279 mg/dL High 65-99 [facility] Glucose [Mass/Vol] 126 mg/dL High 65-99 [facility] Glucose [Mass/Vol] 177 mg/dL High 65-99 [facility] Glucose [Mass/Vol] 193 mg/dL High 65-99 [facility] BASIC METABOLIC PANLon 04-30 -2024 Anion gap [Moles/Vol] 13 mmol/L Normal 5-15 [facility] Comment on above: Performed By: #### 2 157-6, 2823-3, 3273-8 #### [facility] ([id number]) [address] [place] [address] Calcium [Mass/Vol] 8.7 mg/dL Normal 8.5-10.5 [facility] Comment on above: Performed By: #### 2 157-6, 2823-3, 3273-8 #### [facility] ([id number]) [address] [place] [address] Chloride [Moles/Vol] 99 mmol/L Normal 98-109 [facility] Comment on above: Performed By: #### 2 157-6, 2823-3, 3273-8 #### [facility] ([id number]) [address] [place] [address] CO2 [Moles/Vol] 25 mmol/L Normal 22-32 [facility] Comment on above: Performed By: #### 2 157-6, 2823-3, 3273-8 #### [facility] ([id number]) [address] [place] [address] Creatinine [Mass/Vol] 2.26 mg/dL High 0.70-1.20 [facility] Comment on above: Result Comment: METH OD TRACEABLE TO IDMS STANDARD Performed By: #### 2 157-6, 2823-3, 3273-8 #### [facility] ([id number]) [address] [place] [address] GFR/1.73 sq M.predicted among non-blacks MDRD (S/P/Bld) [Vol rate/Area] 34 mL/min/{1.73_m2} Low >59 [facility] Comment on above: Result Comment: Reported eGFR is based on the CKD-EPI 2020 equation that does not use a race coefficient. Performed By: #### 2 157-6, 2823-3, 3274-8 #### [facility] ([id number]) [address] [place] [address] Glucose [Mass/Vol] 70 mg/dL Normal 65-99 [facility] Comment on above: Performed By: #### 2 157-6, 2823-3, 3274-8 #### [facility] ([id number]) [address] [address] Potassium [Moles/Vol] 4.1 mmol/L Normal 3.5-5.0 [facility] Comment on above: Performed By: #### 2 157-6, 2823-3, 4-8 #### [facility] ([id number]) [address] [place] [address] Sodium [Moles/Vol] 137 mmol/L Normal 134-146 [facility] Comment on above: Performed By: #### 2 157-6, 2823-3, 4-8 #### [facility] ([id number]) [address] [address] Urea nitrogen [Mass/Vol] 55 mg/dL High 5-23 [facility] Comment on above: Performed By: #### 2 157-6, 2823-3, 4-8 #### [facility] ([id number]) [address] [place] [address] CBC AND AUTO DIFFon 02-11-20 24 ABSOLUTE BASOPHIL 0.0 X10E9/L Normal 0.0-0.2 [facility] Comment on above: Performed By: #### 2 157-6, 2823-3, 4-8 #### [facility] ([id number]) [address] [place] [address] ABSOLUTE NEUTROPHIL 6.3 X10E9/L Normal 1.5-6.6 [facility] Comment on above: Performed By: #### 2 157-6, 2823-3, 3274-8 #### [facility] ([id number]) [address] [place] [address] Basophils/100 WBC (Bld) 0.6 % Normal [facility] Comment on above: Performed By: #### 2 157-6, 2823-3, 3273-8 #### [facility] ([id number]) [address] [place] [address] Eosinophils (Bld) [#/Vol] 0.2 10*3/uL Normal 0.0-0.4 [facility] Comment on above: Performed By: #### 2 157-6, 2823-3, 3273-8 #### [facility] ([id number]) [address] [address] Eosinophils/100 WBC (Bld) 2.8 % Normal [facility] Comment on above: Performed By: #### 2 157-6, 2823-3, 3273-8 #### [facility] ([id number]) [address] [place] [address] Erythrocyte distribution width (RBC) [Ratio] 12.8 % Normal 11.5-15.0 [facility] Comment on above: Performed By: #### 2 157-6, 2823-3, 3273-8 #### [facility] ([id number]) [address] [place] [address] Hematocrit (Bld) [Volume fraction] 27.9 % Low 39-49 [facility] Comment on above: Performed By: #### 2 157-6, 2823-3, 3273-8 #### [facility] ([id number]) [address] [place] [address] Hemoglobin (Bld) [Mass/Vol] 9.5 g/dL Low 13.0-17.0 [facility] Comment on above: Performed By: #### 2 157-6, 2823-3, 3273-8 #### [facility] ([id number]) [address] [place] [address] Lymphocytes (Bld) [#/Vol] 1.1 10*3/uL Normal 1.0-3.5 [facility] Comment on above: Performed By: #### 2 157-6, 2823-3, 3273-8 #### [facility] ([id number]) [address] [place] [address] Lymphocytes/100 WBC (Bld) 13.6 % Normal [facility] Comment on above: Performed By: #### 2 157-6, 2823-3, 3274-05 #### [facility] ([id number]) [address] [place] [address] MCH (RBC) [Entitic mass] 32.3 pg Normal 27-34 [facility] Comment on above: Performed By: #### 2 157-6, 2823-3, 3274-05 #### [facility] ([id number]) [address] [place] [address] MCHC (RBC) [Mass/Vol] 34.0 g/dL Normal 32-36 [facility] Comment on above: Performed By: #### 2 157-6, 2823-3, 3274-05 #### [facility] ([id number]) [address] [place] [address] MCV (RBC) [Entitic vol] 95 fL Normal 80-100 [facility] Comment on above: Performed By: #### 2 157-6, 2823-3, 3273- #### [facility] ([id number]) [address] [place] [address] Monocytes (Bld) [#/Vol] 0.6 10*3/uL Normal 0-0.9 [facility] Comment on above: Performed By: #### 2 157-6, 2823-3, 3273- #### [facility] ([id number]) [address] [place] [address] Monocytes/100 WBC (Bld) 7.1 % Normal [facility] Comment on above: Performed By: #### 2 157-6, 2823-3, 3273- #### [facility] ([id number]) [address] [place] [address] Neutrophils/100 WBC (Bld) 75.9 % Normal [facility] Comment on above: Performed By: #### 2 157-6, 2823-3, 8 #### [facility] ([id number]) [address] [place] [address] Platelet mean volume (Bld) [Entitic vol] 9.4 fL Normal 7-12 [facility] Comment on above: Performed By: #### 2 157-6, 2823-3, 3273-8 #### [facility] ([id number]) [address] [place] [address] Platelets (Bld) [#/Vol] 219 10*3/uL Normal 150-450 [facility] Comment on above: Performed By: #### 2 157-6, 2823-3, 3273-8 #### [facility] ([id number]) [address] [place] [address] RBC COUNT 2.93 X10E12/L Low 4.10-5.70 [facility] Comment on above: Performed By: #### 2 157-6, 2823-3, 3273-8 #### [facility] ([id number]) [address] [place] [address] WBC (Bld) [#/Vol] 8.3 10*3/uL Normal 4.0-11.0 [facility] Comment on above: Performed By: #### 2 157-6, 2823-3, 3273-8 #### [facility] ([id number]) [address] [place] [address] Glucose Glucometer ([facility]) [M ass/Vol]on 02-11-2024 Glucose [Mass/Vol] 212 mg/dL High 65-99 [facility] Glucose [Mass/Vol] 165 mg/dL High 65-99 [facility] Glucose [Mass/Vol] 141 mg/dL High 65-99 [facility] Glucose [Mass/Vol] 73 mg/dL Normal 65-99 [facility] Glucose [Mass/Vol] 88 mg/dL Normal 65-99 [facility] XR CHEST 1 VWon 02-11-2024 XR CHEST 1 VW XR CHEST 1 VW XR CHEST 1 VW History: Cough One view study. Comparison: 02/07/2024 Impression: * No significant interval change.No focal airspace disease or infiltrate. No change in the vasculature. No pneumothorax. Stable exam Finalized by Bebe Ashby MD on 02/11/2024 2:48 PM Normal [facility] BASIC METABOLIC PANLon 02-09 Anion gap [Moles/Vol] 8 mmol/L Normal 5-15 [facility] Comment on above: Performed By: #### 2 157-6, 2823-3, 3274-8 #### [facility] ([id number]) [address] [place] [address] Calcium [Mass/Vol] 8.4 mg/dL Low 8.5-10.5 [facility] Comment on above: Performed By: #### 2 157-6, 2823-3, 3274-8 #### [facility] ([id number]) [address] [place] [address] Chloride [Moles/Vol] 102 mmol/L Normal 98-109 [facility] Comment on above: Performed By: #### 2 157-6, 2823-3, 3274-8 #### [facility] ([id number]) [address] [place] [address] CO2 [Moles/Vol] 31 mmol/L Normal 22-32 [facility] Comment on above: Performed By: #### 2 157-6, 2823-3, 3274-8 #### [facility] ([id number]) [address] [place] [address] Creatinine [Mass/Vol] 2.50 mg/dL High 0.70-1.20 [facility] Comment on above: Result Comment: METH OD TRACEABLE TO IDMS STANDARD Performed By: #### 2 157-6, 2823-3, 3274-8 #### [facility] ([id number]) [address] [place] [address] GFR/1.73 sq M.predicted among non-blacks MDRD (S/P/Bld) [Vol rate/Area] 30 mL/min/{1.73_m2} Low >59 [facility] Comment on above: Result Comment: Reported eGFR is based on the CKD-EPI 2020 equation that does not use a race coefficient. Performed By: #### 2 157-6, 2823-3, 3273-8 #### [facility] ([id number]) [address] [place] [address] Glucose [Mass/Vol] 137 mg/dL High 65-99 [facility] Comment on above: Performed By: #### 2 157-6, 2823-3, 3273-8 #### [facility] ([id number]) [address] [place] [address] Potassium [Moles/Vol] 3.9 mmol/L Normal 3.5-5.0 [facility] Comment on above: Performed By: #### 2 157-6, 2823-3, 3273-8 #### [facility] ([id number]) [address] [place] [address] Sodium [Moles/Vol] 141 mmol/L Normal 134-146 [facility] Comment on above: Performed By: #### 2 157-6, 2823-3, 4-8 #### [facility] ([id number]) [address] [place] [address] Urea nitrogen [Mass/Vol] 66 mg/dL High 5-23 [facility] Comment on above: Performed By: #### 2 157-6, 2823-3, 3273-8 #### [facility] ([id number]) [address] [place] [address] CBC AND AUTO DIFFon 02-10-20 24 ABSOLUTE BASOPHIL 0.0 X10E9/L Normal 0.0-0.2 [facility] Comment on above: Performed By: #### 2 157-6, 2823-3, 3273-8 #### [facility] ([id number]) [address] [place] [address] ABSOLUTE NEUTROPHIL 12.5 X10E9/L High 1.5-6.6 [facility] Comment on above: Performed By: #### 2 157-6, 2823-3, 3273-8 #### [facility] ([id number]) [address] [place] [address] Basophils/100 WBC (Bld) 0.2 % Normal [facility] Comment on above: Performed By: #### 2 157-6, 2823-3, 3273-8 #### [facility] ([id number]) [address] [place] [address] Eosinophils (Bld) [#/Vol] 0.2 10*3/uL Normal 0.0-0.4 [facility] Comment on above: Performed By: #### 2 157-6, 2823-3, 3273-8 #### [facility] ([id number]) [address] [place] [address] Eosinophils/100 WBC (Bld) 1.5 % Normal [facility] Comment on above: Performed By: #### 2 157-6, 2823-3, 3273-8 #### [facility] ([id number]) [address] [place] [address] Erythrocyte distribution width (RBC) [Ratio] 13.2 % Normal 11.5-15.0 [facility] Comment on above: Performed By: #### 2 157-6, 2823-3, 3273-8 #### [facility] ([id number]) [address] [place] [address] Hematocrit (Bld) [Volume fraction] 24.1 % Low 39-49 [facility] Comment on above: Performed By: #### 2 157-6, 2823-3, 3273-8 #### [facility] ([id number]) [address] [place] [address] Hemoglobin (Bld) [Mass/Vol] 8.1 g/dL Low 13.0-17.0 [facility] Comment on above: Performed By: #### 2 157-6, 2823-3, 4-8 #### [facility] ([id number]) [address] [place] [address] Lymphocytes (Bld) [#/Vol] 0.8 10*3/uL Low 1.0-3.5 [facility] Comment on above: Performed By: #### 2 157-6, 2823-3, 3273-8 #### [facility] ([id number]) [address] [place] [address] Lymphocytes/100 WBC (Bld) 5.7 % Normal [facility] Comment on above: Performed By: #### 2 157-6, 2823-3, 3273-8 #### [facility] ([id number]) [address] [place] [address] MCH (RBC) [Entitic mass] 31.8 pg Normal 27-34 [facility] Comment on above: Performed By: #### 2 157-6, 2823-3, 3273-8 #### [facility] ([id number]) [address] [place] [address] MCHC (RBC) [Mass/Vol] 33.6 g/dL Normal 32-36 [facility] Comment on above: Performed By: #### 2 157-6, 2823-3, 3273-8 #### [facility] ([id number]) [address] [place] [address] MCV (RBC) [Entitic vol] 95 fL Normal 80-100 [facility] Comment on above: Performed By: #### 2 157-6, 2823-3, 3273-8 #### [facility] ([id number]) [address] [place] [address] Monocytes (Bld) [#/Vol] 0.8 10*3/uL Normal 0-0.9 [facility] Comment on above: Performed By: #### 2 157-6, 2823-3, 3273-8 #### [facility] ([id number]) [address] [place] [address] Monocytes/100 WBC (Bld) 5.3 % Normal [facility] Comment on above: Performed By: #### 2 157-6, 2823-3, 3273-8 #### [facility] ([id number]) [address] [place] [address] Neutrophils/100 WBC (Bld) 87.3 % Normal [facility] Comment on above: Performed By: #### 2 157-6, 2823-3, 3273-8 #### [facility] ([id number]) [address] [place] [address] Platelet mean volume (Bld) [Entitic vol] 9.3 fL Normal 7-12 [facility] Comment on above: Performed By: #### 2 157-6, 2823-3, 3273-8 #### [facility] ([id number]) [address] [place] [address] Platelets (Bld) [#/Vol] 204 10*3/uL Normal 150-450 [facility] Comment on above: Performed By: #### 2 157-6, 2823-3, 3273-8 #### [facility] ([id number]) [address] [place] [address] RBC COUNT 2.54 X10E12/L Low 4.10-5.70 [facility] Comment on above: Performed By: #### 2 157-6, 2823-3, 3273-8 #### [facility] ([id number]) [address] [place] [address] WBC (Bld) [#/Vol] 14.3 10*3/uL High 4.0-11.0 [facility] Comment on above: Performed By: #### 2 157-6, 2823-3, 3273-8 #### [facility] ([id number]) [address] [place] [address] Glucose Glucometer ([facility]) [M ass/Vol]on 02-10-2024 Glucose [Mass/Vol] 87 mg/dL Normal 65-99 [facility] Glucose [Mass/Vol] 136 mg/dL High 65-99 [facility] Glucose [Mass/Vol] 140 mg/dL High 65-99 [facility] Glucose [Mass/Vol] 155 mg/dL High 65-99 [facility] Lipid 1996 panelon 4 Cholesterol [Mass/Vol] 109 mg/dL Low 150-200 [facility] Comment on above: Performed By: #### 2 157-6, 2823-3, 327-8 #### [facility] ([id number]) [address] [place] [address] Cholesterol in HDL [Mass/Vol] 36 mg/dL Low >39 [facility] Comment on above: Result Comment: HDL <40 mg/dL - High Risk HDL > or = 40mg/dL- Desirable HDL >60 mg/dL - Negative Risk Performed By: #### 2 157-6, 2823-3, 3274-8 #### [facility] ([id number]) [address] [place] [address] Cholesterol in LDL [Mass/Vol] 29 mg/dL Normal <130 [facility] Comment on above: Result Comment: LDL <100 mg/dL - Desirable LDL >160 mg/dL - High Risk Performed By: #### 2 157-6, 2823-3, 327-8 #### [facility] ([id number]) [address] [place] [address] Cholesterol in VLDL [Mass/Vol] 44 mg/dL High 0-30 [facility] Comment on above: Performed By: #### 2 157-6, 2823-3, 3274-8 #### [facility] ([id number]) [address] [place] [address] CHOLESTEROL:HDL 3.0 Normal 1.0-5.0 [facility] Comment on above: Performed By: #### 2 157-6, 2823-3, 3274-8 #### [facility] ([id number]) [address] [place] [address] Triglyceride [Mass/Vol] 218 mg/dL High 27-[address] [facility] Comment on above: Performed By: #### 2 157-6, 2823-3, 327-8 #### [facility] ([id number]) [address] [place] [address] Procalcitonin IA [Mass/Vol]o n 02-10-2024 PROCALCITONIN 9.95 ng/mL High <0.05 [facility] Comment on above: Result Comment: NOTE <0.50 ng/mL - Low risk of severe sepsis and/or septic shock. <2.00 ng/mL - Recommend retesting within 6-24 hours. >2.00 ng/mL - High risk of sepsis and/or septic shock. Performed By: #### 2 157-6, 2823-3, 327-8 #### [facility] ([id number]) [address] [place] [address] Troponin I.cardiac High sens itivity method [Mass/Vol]on 02-10-2024 TROPONIN I, HIGH SENSITIVITY 94 ng/L High <21 [facility] Comment on above: Result Comment: Elevations of hs-Troponin may be due to causes other than myocardial ischemia. Recommend serial hs-Troponin testing be performed. For the initial evaluation and management of chest pain patients, refer to the algorithms linked below. Emergency Patient: [email or web address] Inpatient: [email or web address] Performed By: #### 2 157-6, 2823-3, 327-8 #### [facility] ([id number]) [address] [place] [address] US RETROPERITONEAL COMPLETEo n 02-10-2024 US RETROPERITONEAL COMPLETE US RETROPERITONEAL COMPLETE History: Acute kidney injury Exam/Technique: Multiple sonographic images of both kidneys were obtained. Sonographic evaluation of urinary bladder was also performed. Comparison: 05/27/2023 Findings: The kidneys are normal in size with the right measuring 10.7 x 5.3 x 6.1 cm and the left measuring 10.6 x 4.6 x 5.4 cm. No hydronephrosis, shadowing calculi, or solid renal masses were seen either kidney. Urinary bladder was poorly distended. No mucosal abnormality seen. Neither ureteral jet was demonstrated. IMPRESSION: * Nonvisualization of either ureteral jet * Otherwise normal renal ultrasound. Finalized by Steve Diaz MD on 02/10/2024 9:37 AM Normal [facility] BASIC METABOLIC PANLon 02-08 Anion gap [Moles/Vol] 9 mmol/L Normal 5-15 [facility] Comment on above: Performed By: #### B MEHREEN, CBCA #### [facility] ([id number]) [address] [place] [address] Calcium [Mass/Vol] 8.0 mg/dL Low 8.5-10.5 [facility] Comment on above: Performed By: #### B MEHREEN CBCA #### [facility] ([id number]) [address] [place] [address] Chloride [Moles/Vol] 101 mmol/L Normal 98-109 [facility] Comment on above: Performed By: #### B MEHREEN, CBCA #### [facility] ([id number]) [address] [place] [address] CO2 [Moles/Vol] 25 mmol/L Normal 22-32 [facility] Comment on above: Performed By: #### B MEHREEN CBCA #### [facility] ([id number]) [address] [place] [address] Creatinine [Mass/Vol] 2.58 mg/dL High 0.70-1.20 [facility] Comment on above: Result Comment: METH OD TRACEABLE TO IDMS STANDARD Performed By: #### B MEHREEN, CBCA #### [facility] ([id number]) [address] [place] [address] GFR/1.73 sq M.predicted among non-blacks MDRD (S/P/Bld) [Vol rate/Area] 29 mL/min/{1.73_m2} Low >59 [facility] Comment on above: Result Comment: Reported eGFR is based on the CKD-EPI 2020 equation that does not use a race coefficient. Performed By: #### B MEHREEN, CBCA #### [facility] ([id number]) [facility] [place] [address] Glucose [Mass/Vol] 244 mg/dL High 65-99 [facility] Comment on above: Performed By: #### B MEHREEN CBCA #### [facility] ([id number]) [address] [place] [address] [place] [address] Potassium [Moles/Vol] 4.1 mmol/L Normal 3.5-5.0 [facility] Comment on above: Performed By: #### B MEHREEN CBCA #### [facility] ([id number]) [address] [place] [address] [place] [address] Sodium [Moles/Vol] 135 mmol/L Normal 134-146 [facility] Comment on above: Performed By: #### B MEHREEN CBCA #### [facility] ([id number]) [address] [place] [address] [place] [address] Urea nitrogen [Mass/Vol] 65 mg/dL High 5-23 [facility] Comment on above: Performed By: #### B MEHREEN CBCA #### [facility] ([id number]) [facility] [address] [place] [address] CBC AND AUTO DIFFon 02-09-20 24 ABSOLUTE BASOPHIL 0.0 X10E9/L Normal 0.0-0.2 [facility] Comment on above: Performed By: #### B MEHREEN CBCA #### [facility] ([id number]) [address] [place] [address] [place] [address] ABSOLUTE NEUTROPHIL 19.2 X10E9/L High 1.5-6.6 [facility] Comment on above: Performed By: #### B MEHREEN CBCA #### [facility] ([id number]) [address] [place] [address] [place] [address] Basophils/100 WBC (Bld) 0.2 % Normal [facility] Comment on above: Performed By: #### B MP, CBCA #### [facility] ([id number]) [address] [facility] [place] [address] Eosinophils (Bld) [#/Vol] 0.1 10*3/uL Normal 0.0-0.4 [facility] Comment on above: Performed By: #### B MP, CBCA #### [facility] ([id number]) [address] [facility] [place] [address] Eosinophils/100 WBC (Bld) 0.3 % Normal [facility] Comment on above: Performed By: #### B MP, CBCA #### [facility] ([id number]) [address] [place] [address] [place] [address] Erythrocyte distribution width (RBC) [Ratio] 13.0 % Normal 11.5-15.0 [facility] Comment on above: Performed By: #### B MP, CBCA #### [facility] ([id number]) [address] [place] [address] [place] [address] Hematocrit (Bld) [Volume fraction] 23.7 % Low 39-49 [facility] Comment on above: Performed By: #### B MP, CBCA #### [facility] ([id number]) [address] [place] [address] [place] [address] Hemoglobin (Bld) [Mass/Vol] 7.8 g/dL Low 13.0-17.0 [facility] Comment on above: Performed By: #### B MP, CBCA #### [facility] ([id number]) [address] [place] [address] [place] [address] Lymphocytes (Bld) [#/Vol] 1.0 10*3/uL Normal 1.0-3.5 [facility] Comment on above: Performed By: #### B MP, CBCA #### [facility] ([id number]) [address] [place] [address] [place] [address] Lymphocytes/100 WBC (Bld) 4.6 % Normal [facility] Comment on above: Performed By: #### B MP, CBCA #### [facility] ([id number]) [address] [place] [address] MCH (RBC) [Entitic mass] 31.8 pg Normal 27-34 [facility] Comment on above: Performed By: #### B MP, CBCA #### [facility] ([id number]) [address] [place] [address] MCHC (RBC) [Mass/Vol] 32.7 g/dL Normal 32-36 [facility] Comment on above: Performed By: #### B MP, CBCA #### [facility] ([id number]) [address] [place] [address] [place] [address] MCV (RBC) [Entitic vol] 97 fL Normal 80-100 [facility] Comment on above: Performed By: #### B MEHREEN, CBCA #### [facility] ([id number]) [address] [place] [address] [place] [address] Monocytes (Bld) [#/Vol] 0.8 10*3/uL Normal 0-0.9 [facility] Comment on above: Performed By: #### B MEHREEN, CBCA #### [facility] ([id number]) [address] [place] [address] [place] [address] Monocytes/100 WBC (Bld) 3.7 % Normal [facility] Comment on above: Performed By: #### B MEHREEN, CBCA #### [facility] ([id number]) [address] [place] [address] [place] [address] Neutrophils/100 WBC (Bld) 91.2 % Normal [facility] Comment on above: Performed By: #### B MEHREEN, CBCA #### [facility] ([id number]) [facility] [address] [place] [address] Platelet mean volume (Bld) [Entitic vol] 9.5 fL Normal 7-12 [facility] Comment on above: Performed By: #### B MP, CBCA #### [facility] ([id number]) [address] [place] [address] Platelets (Bld) [#/Vol] 192 10*3/uL Normal 150-450 [facility] Comment on above: Performed By: #### B MP, CBCA #### [facility] ([id number]) [address] [facility] [place] [address] RBC COUNT 2.44 X10E12/L Low 4.10-5.70 [facility] Comment on above: Performed By: #### B MP, CBCA #### [facility] ([id number]) [address] [facility] [place] [address] WBC (Bld) [#/Vol] 21.1 10*3/uL High 4.0-11.0 [facility] Comment on above: Performed By: #### B MEHREEN, CBCA #### [facility] ([id number]) [address] [facility] [place] [address] COMPLEMENT PROFILEon 024 COMPLEMENT C3 121 mg/dL Normal 86-184 [facility] Comment on above: Performed By: #### C [address], [facility], 2857-1, 57937-8 ####[facility] ([id number])[address], [address] [place] [address] COMPLEMENT C4 26 mg/dL Normal 16-47 [facility] Comment on above: Performed By: #### C 34, [facility], 2857-1, 81388-6 ####[facility] ([id number])[address], [address] [place] [address] ABDOMEN AND PELVIS WO CON Ton 02-09-2024 CT ABDOMEN AND PELVIS WO CONT CT ABDOMEN AND PELVIS WO CONT CLINICAL INFORMATION: Sepsis. TECHNIQUE: CT Abdomen and Pelvis without intravenous contrast. All CT scans at this facility use dose modulation, iterative reconstruction, and/or weight based dosing when appropriate to reduce radiation dose to as low as reasonably achievable. COMPARISON: 05/25/23. FINDINGS: Bibasilar atelectasis. Small effusions. The liver demonstrates no hepatic mass or biliary dilatation. The gallbladder is normal. The spleen and pancreas appear normal. Adrenal glands are unremarkable. Nonspecific mild perinephric stranding. Appendix is normal. Anasarca. Atherosclerotic calcifications are present. No lymphadenopathy. Degenerative changes. 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 IMPRESSION: * No acute findings in the abdomen/pelvis. Finalized by Michele Thomas MD on 02/09/2024 11:11 AM Normal [facility] FREE LIGHT CHAINSon 02-09-20 FREE RAMIN/LAMBD RATIO 1.58 Normal 0.26-1.65 [facility] Comment on above: Performed By: #### C 34, [facility], 2857-1, 96537-3 ####[facility] ([id number])[address], [address] [place] [address] FREE KAPPA LT CHAINS 4.91 mg/dL High 0.33-1.94 [facility] Comment on above: Performed By: #### C [address], [facility], 2857-1, 49063-6 ####[facility] ([id number])[address], [address] [place] [address] FREE LAMBDA LT CHAINS 3.11 mg/dL High 0.57-2.63 [facility] Comment on above: Performed By: #### [address], [facility], 2857-1, 08704-0 ####[facility] ([id number])[address], [address] [place] [address] Glucose Glucometer (BldC) [M ass/Vol]on 02-09-2024 Glucose [Mass/Vol] 152 mg/dL High 65-99 [facility] Glucose [Mass/Vol] 227 mg/dL High 65-99 [facility] Glucose [Mass/Vol] 233 mg/dL High 65-99 [facility] Glucose [Mass/Vol] 249 mg/dL High 65-99 [facility] Glucose [Mass/Vol] 302 mg/dL High 65-99 [facility] Heparin unfractionated Chrom ogenic method Qn (PPP)on 02-09-2024 ANTI XA UFH 0.29 IU/mL Low 0.30-0.70 [facility] Comment on above: Result Comment: Opti mal time for testing is 6 hrs post dosage This test is specific for monitoring patients on UFH, and is not recommended for use with other Anti-Xa medications. Performed By: #### 3 274-8 #### [facility] ([id number]) [address] [facility] [facility] [address] ANTI XA UFH 0.19 IU/mL Low 0.30-0.70 [facility] Comment on above: Result Comment: Opti mal time for testing is 6 hrs post dosage This test is specific for monitoring patients on UFH, and is not recommended for use with other Anti-Xa medications. Performed By: #### 3 274-8 #### [facility] ([id number]) [address] [facility] [place] [address] Nuclear Ab IA Ql (S)on 02-08 REX Screen w/reflex Negative Normal NEG [facility] Comment on above: Result Comment: Testing performed using multiplex flow immunoassay. Eleven different antigens associated with systemic autoimmune diseases (dsDNA,Sm,Sm/DISPATCHER [employer] WORK,DISPATCHER SERVICE OR WORK,Chromatin, SSA,SSB,Leila-1,Scl70,Ribo P,Centromere B) are included in this screening test. Performed By: #### C 34, [facility], 2857-1, 15204-5 ####[facility] ([id number])[address], [place] [address] PROTEIN CREAT RATIOon 2023 RANDOM URINE PROTEIN 740 mg/L High <120 [facility] Comment on above: Performed By: #### 2 955-3, UPCR ####[facility] ([id number])[address] [place] [address] U/PRO/AIR EXPORT LOGISTICS MANAGER RATIO CALC 2.57 High <0.2 [facility] Comment on above: Result Comment: Neph rotic Syndrome is associated with ratios >3.5 Performed By: #### 2 955-3, UPCR ####[facility] ([id number])[address] [place] [address] URINE CREATININE,RDM 28.81 mg/dL Normal Pro [facility] [place] Comment on above: Performed By: #### 2 955-3, UPCR ####[facility] ([id number])2801 [place] [address] Prostate specific Ag [Mass/V ol]on 02-09-2024 PSA SCREEN 0.34 ng/mL Normal 0.00-4.00 [facility] Comment on above: Result Comment: The method used for this test is Tamika CallResto DXI chemiluminescent immunoassay. Values obtained by different assay methods cannot be used interchangeably. Performed By: #### C [address], [facility], 2857-1, 04616-6 ####[facility] ([id number])[address] [place] [address], [address], [place] [address] RESP PATHOGENS/[id number] 02-09-2024 Respiratory pathogens DNA and RNA panel HONEY+non-probe (Nph) SPECIMEN SOURCE NASO PHARYNX ADENOVIRUS Not detected (qualifier value) CORONAVIRUS 229E Not detected (qualifier value) CORONAVIRUS HKU1 Not detected (qualifier value) CORONAVIRUS NL63 Not detected (qualifier value) CORONAVIRUS OC43 Not detected (qualifier value) HUMAN METAPNEUVIRUS Not detected (qualifier value) RHINO/ENTEROVIRUS Not detected (qualifier value) INFLUENZA A Not detected (qualifier value) INFLUENZA B Not detected (qualifier value) PARAINFLUENZA 1 Not detected (qualifier value) PARAINFLUENZA 2 Not detected (qualifier value) PARAINFLUENZA 3 Not detected (qualifier value) PARAINFLUENZA 4 Not detected (qualifier value) RESP SYNCYTIAL VIRUS Not detected (qualifier value) BORD PARAPERTUSSIS Not detected (qualifier value) BORDETELLA PERTUSSIS Not detected (qualifier value) CHLAM.PNEUMONIAE Not detected (qualifier value) MYCO. PNEUMONIAE Not detected (qualifier value) SARS CoV 2 Not detected (qualifier value) NOTE The Preztoe Respiratory Panel 2.1 (RP2.1) is a multiplexed nucleic acid test intended for the simultaneous qualitative detection and differentiation of nucleic acid from multiple viral and bacterial respiratory organisms, including nucleic acid from Severe Acute Respiratory Syndrome Coronavirus 2 (SARS-CoV-2), in nasopharyngeal swabs obtained from individuals suspected of COVID-19 by their healthcare provider. Testing is limited to laboratories certified under the Clinical Laboratory Improvement Amendments of 1988 (CLIA), to perform high complexity or moderate complexity tests. SARS-CoV-2 RNA and nucleic acids from the other respiratory viral and bacterial organisms identified by this test are generally detectable in nasopharyngeal swabs during the acute phase of infection. The detection and identification of specific viral and bacterial nucleic acids from individuals exhibiting signs and/or symptoms of respiratory infection is indicative of the presence of the identified microorganism and aids in the diagnosis of respiratory infection if used in conjunction with other clinical and epidemiological information. Positive results are indicative of the presence of the identified organism, but do not rule out co-infection with other pathogens. The agent(s) detected by the Preztoe RP2.1 may not be the definite cause of disease and clinical correlation with patient history and other diagnostic information is necessary to determine patient infection status. Negative results in the setting of a respiratory illness may be due to infection with pathogens not detected by this test, or lower respiratory tract infection that may not be detected by a nasopharyngeal specimen. Negative results do not preclude SARS-CoV-2 infection and should not be used as the sole basis for patient management decisions. Negative RONNY-CoV-2 results must be combined with clinical observations, patient history and epidemiological information. Negative results for other organisms identified by the test may require additional laboratory testing when evaluating a patient with possible respiratory tract infection. Normal [facility] Comment on above: Performed By: #### 8 2159-5 ####[facility] ([id number])[address] [place], [place] [address]IJ[facility]IU[facility] ([id number])[address] [facility], [address], [place] [address] URINALYSISon 02-09-2024 Bilirubin Ql (U) Negative Normal NEG [facility] Comment on above: Performed By: #### U A ####[facility] ([id number])28[address] [place] [address] BLOOD/HGB Negative Normal NEG [facility] Comment on above: Performed By: #### U A ####[facility] ([id number])[address] [place] [address] Color (U) YELLOW Normal YELLOW [facility] Comment on above: Performed By: #### U A ####[facility] ([id number])[address] [place] [address] Glucose Ql (U) >1000 Abnormal NEG [facility] Comment on above: Performed By: #### U A ####[facility] ([id number])[facility] [place] [address] Ketones Ql (U) Negative Normal NEG [facility] Comment on above: Performed By: #### U A ####[facility] ([id number])[address] [place] [address] Leukocyte esterase Test strip Ql (U) Negative Normal NEG [facility] Comment on above: Result Comment: HIGH CONCENTRATIONS OF GLUCOSE MAY DECREASE THE REACTIVITY OF THE DIPSTICK LEUKOCYTE TEST PAD. Performed By: #### U A ####[facility] ([id number])[address] [place] [address] Nitrite Ql (U) Negative Normal NEG [facility] Comment on above: Performed By: #### U A ####[facility] ([id number])[address] [place] [address] pH (U) 6.0 [pH] Normal 5.0-8.5 [facility] Comment on above: Performed By: #### U A ####[facility] ([id number])[address] [place] [address] Protein Ql (U) 100 mg/dL Abnormal NEG [facility] Comment on above: Performed By: #### U A ####[facility] ([id number])[address] [place] [address] R.B.CELLS 0 /hpf Normal 0-5 [facility] Comment on above: Performed By: #### U A ####[facility] ([id number])[address] [place] [address] Specific gravity (U) [Rel density] 1.015 Normal 1.003-1.03 5 [facility] Comment on above: Performed By: #### U A ####[facility] ([id number])[address] [place] [address] SQUAMOUS EPITHELIUM 1 /hpf Normal 0-5 [facility] Comment on above: Performed By: #### U A ####[facility] ([id number])[address] [place] [address] TURBIDITY CLEAR Normal CLEAR [facility] Comment on above: Performed By: #### U A ####[facility] ([id number])[address] [place] [address] Urobilinogen Qn (U) 0.2 {Brielle'U}/dL Normal <1.1 [facility] Comment on above: Performed By: #### U A ####[facility] ([id number])[address] [place] [address] W.B.CELLS 0 /hpf Normal 0-5 [facility] Comment on above: Performed By: #### U A ####[facility] ([id number])[address] [place] [address] URINE SODIUM,RANDOMon 2023 Sodium (U) [Moles/Vol] 103 mmol/L Normal Pr [facility] Comment on above: Performed By: #### 2 955-3, UPCR ####[facility] ([id number])[address] [place] [address] BLOOD CULTUREon 02-08-2024 Bacteria identified Aer cx Nom (Bld) CULTURE RESULTS NO GROWTH 5 DAYS Normal [facility] Bacteria identified Aer cx Nom (Bld) CULTURE RESULTS NO GROWTH 5 DAYS Normal [facility] Bacteria identified Aer cx Nom (Bld) SPECIMEN NOTES SUBOPTIMAL VOLUME OF BLOOD COLLECTED, RESULTS MAY BE AFFECTED. CULTURE RESULTS NO GROWTH 5 DAYS Normal [facility] Comment on above: Performed By: #### C BCA, 66558-4, 57918-9, CMP #### [facility] ([id number]) [address] [place] [address] CBC AND AUTO DIFFon 02-08-20 24 Band form neutrophils/100 WBC (Bld) 3.9 % Normal [facility] Comment on above: Performed By: #### Dread KEYS, 94582-3, 98016-6, CMP #### [facility] ([id number]) [address] [place] [address] Erythrocyte distribution width (RBC) [Ratio] 13.1 % Normal 11.5-15.0 [facility] Comment on above: Performed By: #### Dread KEYS, 71915-4, 55694-7, CMP #### [facility] ([id number]) [address] [place], [place] [address] Hematocrit (Bld) [Volume fraction] 26.4 % Low 39-49 [facility] Comment on above: Performed By: #### Dread KEYS, 91995-9, 11191-2, CMP #### [facility] ([id number]) [address] [place] [address] Hemoglobin (Bld) [Mass/Vol] 8.9 g/dL Low 13.0-17.0 [facility] Comment on above: Performed By: #### Dread KEYS, 00162-0, 57659-7, CMP #### [facility] ([id number]) [address] [place] [address] IMMATURE MONONUCLEAR 1.0 % Normal [facility] Comment on above: Performed By: #### Dread KEYS, 14263-8, 93140-9, CMP #### [facility] ([id number]) [address] [place] [address] 10899 Lymphocytes (Bld) [#/Vol] 0.4 10*3/uL Low 1.0-3.5 [facility] Comment on above: Performed By: #### Dread KEYS, 29442-8, 55541-5, CMP #### [facility] ([id number]) [address] [place] [address] Lymphocytes/100 WBC (Bld) 1.0 % Normal [facility] Comment on above: Performed By: #### Dread EKYS, 30358-3, 48807-8, CMP #### [facility] ([id number]) [address] [place] [address] 90217 MCH (RBC) [Entitic mass] 32.5 pg Normal 27-34 [facility] Comment on above: Performed By: #### Dread KEYS, 10810-0, 48548-7, CMP #### [facility] ([id number]) [address] [place] [address] 03299 MCHC (RBC) [Mass/Vol] 33.8 g/dL Normal 32-36 [facility] Comment on above: Performed By: #### Dread KEYS, 31092-0, 71244-3, CMP #### [facility] ([id number]) [address] [place] [address] 63073 MCV (RBC) [Entitic vol] 96 fL Normal 80-100 [facility] Comment on above: Performed By: #### Dread KEYS, 72255-6, 17118-9, CMP #### [facility] ([id number]) [address] [place] [address] 00083 Monocytes (Bld) [#/Vol] 0.4 10*3/uL Normal 0-0.9 [facility] Comment on above: Performed By: #### Dread KEYS, 48582-4, 98137-3, CMP #### [facility] ([id number]) [address] [place] [address] 36965 Monocytes/100 WBC (Bld) 1.0 % Normal P [facility] Comment on above: Performed By: #### Dread KEYS, 50504-3, 03670-7, CMP #### [facility] ([id number]) [address] [place] [address] 37355 Neutrophils (Bld) [#/Vol] 40.4 10*3/uL High 1.5-6.6 [facility] Comment on above: Performed By: #### Dread KEYS, 62652-5, 38562-1, CMP #### [facility] ([id number]) [address] [place] [address] 01043 OVALOCYTE 1+ Abnormal NONE [facility] Comment on above: Performed By: #### Dread KEYS, 30116-7, 85322-4, CMP #### [facility] ([id number]) [address] [place] [address] 69596 Platelet mean volume (Bld) [Entitic vol] 9.4 fL Normal 7-12 [facility] Comment on above: Performed By: #### Dread KEYS, 74572-1, 90492-6, CMP #### [facility] ([id number]) [address] [place] [address] 94189 Platelets (Bld) [#/Vol] 223 10*3/uL Normal 150-450 [facility] Comment on above: Performed By: #### Dread KEYS, 76502-5, 42165-7, CMP #### [facility] ([id number]) [address] [place] [address] 80584 POLYCHROMASIA 1+ Abnormal NONE [facility] Comment on above: Performed By: #### Dread KEYS, 25371-1, 15969-7, CMP #### [facility] ([id number]) [address] [place] [address] 03407 RBC COUNT 2.74 X10E12/L Low 4.10-5.70 [facility] Comment on above: Performed By: #### Dread KEYS, 45782-1, 36752-8, CMP #### [facility] ([id number]) [address] [place] [address] 87161 SEG NEUTROPHIL 93.1 % Normal [facility] Comment on above: Performed By: #### C LUDMILA, 87826-8, 77493-7, CMP #### [facility] ([id number]) [address] [place] [address] 09904 SPHEROCYTE 1+ Abnormal NONE [facility] Comment on above: Performed By: #### C LUDMILA, 70636-9, 34811-7, CMP #### [facility] ([id number]) [address] [place] [address] 01272 WBC (Bld) [#/Vol] 41.6 10*3/uL High 4.0-11.0 [facility] Comment on above: Performed By: #### C LUDMILA, 90878-2, 69879-3, CMP #### [facility] ([id number]) [address] [place] [address] 27159 CK [Catalytic activity/Vol]o n 02-08-2024 CPK 138 U/L Normal 24-195 [facility] Comment on above: Performed By: #### 2 157-6, 2823-3, 3274-8 #### [facility] ([id number]) [address] [place] [address] COMPREHENSIVE METABOLIC PANE Marcos 02-08-2024 Albumin [Mass/Vol] 3.4 g/dL Normal 3.2-5.3 [place] Comment on above: Performed By: #### C LUDMILA, 26018-3, 96237-0, CMP #### [facility] ([id number]) [address] [place] [address] 33218 ALP [Catalytic activity/Vol] 82 U/L Normal 39-130 [facility] Comment on above: Performed By: #### C LUDMILA, 79902-5, 32282-2, CMP #### [facility] ([id number]) [address] [place] [address] 02141 ALT [Catalytic activity/Vol] 14 U/L Normal 0-40 [facility] Comment on above: Performed By: #### C LUDMILA, 82283-5, 45449-2, CMP #### [facility] ([id number]) [address] [place] [address] 10697 Anion gap [Moles/Vol] 11 mmol/L Normal 5-15 [facility] Comment on above: Performed By: #### C LUDMILA, 84722-5, 07101-7, CMP #### [facility] ([id number]) [address] [place] [address] 84553 AST [Catalytic activity/Vol] 17 U/L Normal 0-41 [facility] Comment on above: Performed By: #### C LUDMILA, 29680-3, 59423-8, CMP #### [facility] ([id number]) [address] [place] [address] 96318 Bilirubin [Mass/Vol] 0.6 mg/dL Normal 0.3-1.2 [facility] Comment on above: Performed By: #### C LUDMILA, 34828-5, 97534-4, CMP #### [facility] ([id number]) [address] [place] [address] 03121 Calcium [Mass/Vol] 8.6 mg/dL Normal 8.5-10.5 [place] Comment on above: Performed By: #### C LUDMILA, 85193-0, 07689-7, CMP #### [facility] ([id number]) [address] [place] [address] 30500 Chloride [Moles/Vol] 96 mmol/L Low 98-109 [facility] Comment on above: Performed By: #### C LUDMILA, 34247-2, 26306-6, CMP #### [facility] ([id number]) [address] [place] [address] 07661 CO2 [Moles/Vol] 24 mmol/L Normal 22-32 [facility] Comment on above: Performed By: #### C BCA, 39946-6, 54034-3, CMP #### [facility] ([id number]) [address] [place] [address] 53503 Creatinine [Mass/Vol] 2.62 mg/dL High 0.70-1.20 [facility] Comment on above: Result Comment: METH OD TRACEABLE TO IDMS STANDARD Performed By: #### C BCA, 65412-9, 53326-9, CMP #### [facility] ([id number]) [address] [place] [address] 25408 GFR/1.73 sq M.predicted among non-blacks MDRD (S/P/Bld) [Vol rate/Area] 29 mL/min/{1.73_m2} Low >59 [facility] Comment on above: Result Comment: Reported eGFR is based on the CKD-EPI 2020 equation that does not use a race coefficient. Performed By: #### C BCA, 97698-9, 15714-7, CMP #### [facility] ([id number]) [address] [place] [address] 29782 Glucose [Mass/Vol] 441 mg/dL Critically high 65-99 [facility] Comment on above: Performed By: #### C BCA, 87825-0, 04549-7, CMP #### [facility] ([id number]) [address] [place] [address] 09877 Potassium [Moles/Vol] 5.5 mmol/L High 3.5-5.0 [facility] Comment on above: Performed By: #### C BCA, 65111-1, 23373-5, CMP #### [facility] ([id number]) [address] [place] [address] 83642 Protein [Mass/Vol] 6.8 g/dL Normal 6.0-8.0 [place] Comment on above: Performed By: #### C BCA, 85971-0, 88615-9, CMP #### [facility] ([id number]) [address] [place] [address] Sodium [Moles/Vol] 131 mmol/L Low 134-146 [place] Comment on above: Performed By: #### C LUDMILA, 37533-7, 40449-5, CMP #### [facility] ([id number]) [address] [place] [address] Urea nitrogen [Mass/Vol] 64 mg/dL High 5-23 [facility] Comment on above: Performed By: #### C LUDMILA, 00687-6, 37070-4, CMP #### [facility] ([id number]) [address] [place] [address] 77405 Glucose Glucometer (BldC) [M ass/Vol]on 02-08-2024 Glucose [Mass/Vol] 314 mg/dL High 65-99 [facility] Glucose [Mass/Vol] 307 mg/dL High 65-99 [facility] Glucose [Mass/Vol] 272 mg/dL High 65-99 [place] Glucose [Mass/Vol] 422 mg/dL Critically high 65-99 P [facility] Glucose [Mass/Vol] 278 mg/dL High 65-99 [place] Heparin unfractionated Chrom ogenic method Qn (PPP)on 02-08-2024 ANTI XA UFH 0.18 IU/mL Low 0.30-0.70 [facility] Comment on above: Result Comment: Opti mal time for testing is 6 hrs post dosage This test is specific for monitoring patients on UFH, and is not recommended for use with other Anti-Xa medications. Performed By: #### 2 157-6, 2823-3, 3274-8 #### [facility] ([id number]) [address] [place] [address] Lactate (P ponce) [Moles/Vol]o n 02-08-2024 LACTATE W/REFLEX 1.3 mmol/L Normal 0.4-2.0 [facility] Comment on above: Result Comment: Result did not trigger repeat Lactate, re-order if needed. Performed By: #### C LUDMILA, 69027-0, 25961-0, CMP #### [facility] ([id number]) [address] [place] [address] 17855 MAGNESIUMon 02-08-2024 Magnesium [Mass/Vol] 1.8 mg/dL Normal 1.8-2.6 [facility] Comment on above: Performed By: #### C LUDMILA, 99327-7, 36425-5, CMP #### [facility] ([id number]) [address] [place] [address] 48422 POTASSIUMon 02-08-2024 Potassium [Moles/Vol] 4.1 mmol/L Normal 3.5-5.0 [facility] Comment on above: Performed By: #### 2 157-6, 2823-3, 3274-8 #### [facility] ([id number]) [address] [place] [address] PROTIME AND INRon 02-08-2024 INR Coag (PPP) [Relative time] 1.1 {INR} Normal 0.8-1.1 [facility] Comment on above: Performed By: #### C LUDMILA, 38731-6, 10964-9, CMP #### [facility] ([id number]) [address] [place] [address] 94151 PT Coag (PPP) [Time] 13.1 s Normal 9.8-13.2 [facility] Comment on above: Result Comment: NEW REFERENCE RANGE Performed By: #### C LUDMILA, 34316-1, 45497-6, CMP #### [facility] ([id number]) [address] [place] [address] 91311 Procalcitonin IA [Mass/Vol]o n 02-08-2024 PROCALCITONIN 17.13 ng/mL High <0.05 [facility] Comment on above: Result Comment: NOTE <0.50 ng/mL - Low risk of severe sepsis and/or septic shock. <2.00 ng/mL - Recommend retesting within 6-24 hours. >2.00 ng/mL - High risk of sepsis and/or septic shock. Performed By: #### C LUDMILA, 86322-0, 61372-8, CMP #### [facility] ([id number]) [address] [place] [address] 10237 PROCALCITONIN 15.03 ng/mL High <0.05 [facility] Comment on above: Result Comment: NOTE <0.50 ng/mL - Low risk of severe sepsis and/or septic shock. <2.00 ng/mL - Recommend retesting within 6-24 hours. >2.00 ng/mL - High risk of sepsis and/or septic shock. Performed By: #### C LUDMILA, 57030-4, 16553-5, CMP #### [facility] ([id number]) [address] [place] [address] 52572 Troponin I.cardiac High sens itivity method [Mass/Vol]on 02-08-2024 1 HOUR TROP I, HIGH SENSITIVITY 258 ng/L High <21 [facility] Comment on above: Result Comment: Elevations of hs-Troponin may be due to causes other than myocardial ischemia. Recommend serial hs-Troponin testing be performed. For the initial evaluation and management of chest pain patients, refer to the algorithms linked below. Emergency Patient: [email or web address] &uh=acaea Inpatient: [email or web address] &uh=acaea Performed By: #### C LUDMILA, 21303-6, 61281-8, CMP #### [facility] ([id number]) [address] [place] [address] 54438 TROPONIN I, HIGH SENSITIVITY 259 ng/L High <21 [facility] Comment on above: Result Comment: Elevations of hs-Troponin may be due to causes other than myocardial ischemia. Recommend serial hs-Troponin testing be performed. For the initial evaluation and management of chest pain patients, refer to the algorithms linked below. Emergency Patient: [email or web address] &uh=acaea Inpatient: [email or web address] &uh=acaea Performed By: #### C BCA, 52662-3, 35723-3, CMP #### [facility] ([id number]) [address] [place] [address] 22779 1 HOUR TROP I, HIGH SENSITIVITY 47 ng/L High <21 [facility] Comment on above: Result Comment: Elevations of hs-Troponin may be due to causes other than myocardial ischemia. Recommend serial hs-Troponin testing be performed. For the initial evaluation and management of chest pain patients, refer to the algorithms linked below. Emergency Patient: [email or web address] &uh=acaea Inpatient: [email or web address] &uh=acaea Performed By: #### C BCA, 84860-9, 86237-0, CMP #### [facility] ([id number]) [address] [place] [address] 39657 URINE CULTUREon 02-08-2024 Bacteria identified Cx Nom (U) CULTURE RESULTS <10,000 ORGANISMS/ML NORMAL URO GENITAL CHANDAN Normal [facility] Comment on above: Performed By: #### C BCA, 89738-2, 00114-9, CMP #### [facility] ([id number]) [address] [place] [address] 16297 URN MACROSCOPIC NURon 2023 BILIRUBIN KENNETH Negative Normal NEG [facility] Comment on above: Performed By: #### C LUDMILA, 73546-2, 13075-0, CMP #### [facility] ([id number]) [address] [place] [address] 94584 BLOOD/HGB KENNETH Small Abnormal NEG [facility] Comment on above: Performed By: #### C LUDMILA, 89445-5, 88046-7, CMP #### [facility] ([id number]) [address] [place] [address] [place] [address] GLUCOSE KENNETH >=1000 Abnormal NEG [facility] Comment on above: Performed By: #### C LUDMILA, 38295-4, 43885-7, CMP #### [facility] ([id number]) [address] [place] [address] [place] [address] KETONES KENNETH Negative Normal NEG [facility] Comment on above: Performed By: #### Dread KEYS, 14080-7, 66637-1, CMP #### [facility] ([id number]) [address] [place] [address] [place] [address] LEUKOCYTE ESTERASE KENNETH Negative Normal NEG [facility] Comment on above: Performed By: #### C LUDMILA, 45037-9, 33238-5, CMP #### [facility] ([id number]) [address] [place] [id number] NITRITE KENNETH Negative Normal NEG [facility] Comment on above: Performed By: #### C LUDMILA, 83667-8, 27257-7, CMP #### [facility] ([id number]) [address] [place] [address] 10851 PH KENNETH 6.0 Normal 5.0-8.5 [facility] Comment on above: Performed By: #### C LUDMILA, 14145-7, 55840-0, CMP #### [facility] ([id number]) [address] [place] [address] 14287 PROTEIN KENNETH >=300 Abnormal NEG [facility] Comment on above: Performed By: #### C LUDMILA, 95211-7, 69173-6, CMP #### [facility] ([id number]) [address] [place] [address] SPECIFIC GRAVITY KENNETH 1.020 Normal 1.003-1 .03 5 [facility] Comment on above: Performed By: #### C LUDMILA, 14286-6, 96539-2, CMP #### [facility] ([id number]) [address] [place] [address] 60178 UROBILINOGEN KENNETH 0.2 eu/dL Normal <1.1 [facility] Comment on above: Performed By: #### C LUDMILA, 04966-5, 69000-2, CMP #### [facility] ([id number]) [address] [place] [address] 23424 XR CHEST 1 VWon 02-08-2024 XR CHEST 1 VW XR CHEST 1 VW XR CHEST 1 VW 02/07/2024 10:00 PM INDICATION: Shortness of breath COMPARISON: Priors dating back to 01 18 TECHNIQUE: Portable upright view the chest was obtained FINDINGS: The lungs are clear. There is no pneumothorax. There is no pleural effusion. Cardiac silhouette is enlarged. No acute osseous abnormalities. IMPRESSION: Cardiac silhouette is enlarged. Correlate with cardiac labs. Consider echocardiogram if clinically warranted. Finalized by Kvng Wheeler on 02/07/2024 10:06 PM Normal [facility] aPTT Coag (PPP) [Time]on aPTT Coag (Bld) [Time] 30 s Normal 26-37 Pr [facility] Comment on above: Result Comment: NEW REFERENCE RANGE Performed By: #### C LUDMILA, 57486-8, 07599-3, CMP #### [facility] ([id number]) [address] [place] [address] 16795 BASIC METABOLIC PANLon 02-06 Anion gap [Moles/Vol] 10 mmol/L Normal 5-15 [facility] Comment on above: Performed By: #### C BCA, 80351-8, 79130-1, CMP #### [facility] ([id number]) [address] [place] [address] 25928 Calcium [Mass/Vol] 8.5 mg/dL Normal 8.5-10.5 [place] Comment on above: Performed By: #### C BCA, 68256-7, 62195-4, CMP #### [facility] ([id number]) [address] [place] [address] 59720 Chloride [Moles/Vol] 100 mmol/L Normal 98-109 [facility] Comment on above: Performed By: #### C BCA, 55797-9, 16331-0, CMP #### [facility] ([id number]) [address] [place] [address] 24910 CO2 [Moles/Vol] 24 mmol/L Normal 22-32 [facility] Comment on above: Performed By: #### C BCA, 06370-1, 33148-1, CMP #### [facility] ([id number]) [address] [place] [address] 97424 Creatinine [Mass/Vol] 2.46 mg/dL High 0.70-1.20 [facility] Comment on above: Result Comment: METH OD TRACEABLE TO IDMS STANDARD Performed By: #### C BCA, 75317-5, 34063-4, CMP #### [facility] ([id number]) [address] [place] [address] 40442 GFR/1.73 sq M.predicted among non-blacks MDRD (S/P/Bld) [Vol rate/Area] 31 mL/min/{1.73_m2} Low >59 [facility] Comment on above: Result Comment: Reported eGFR is based on the CKD-EPI 2020 equation that does not use a race coefficient. Performed By: #### C BCA, 58336-5, 71701-8, CMP #### [facility] ([id number]) [address] [place] [address] 72049 Glucose [Mass/Vol] 310 mg/dL High 65-99 [place] Comment on above: Performed By: #### C BCA, 29872-6, 80027-7, CMP #### [facility] ([id number]) [address] [place] [address] 62826 Potassium [Moles/Vol] 4.6 mmol/L Normal 3.5-5.0 [facility] Comment on above: Performed By: #### Dread KEYS, 88293-0, 24890-7, CMP #### [facility] ([id number]) [address] [place] [address] 78731 Sodium [Moles/Vol] 134 mmol/L Normal 134-146 [place] Comment on above: Performed By: #### Dread KEYS, 84794-8, 34479-6, CMP #### [facility] ([id number]) [address] [place] [address] 45840 Urea nitrogen [Mass/Vol] 58 mg/dL High 5-23 [facility] Comment on above: Performed By: #### C LUDMILA, 16253-3, 18731-8, CMP #### [facility] ([id number]) [address] [place] [address] 16377 BLOOD CULTUREon 02-07-2024 Bacteria identified Aer cx Nom (Bld) CULTURE RESULTS NO GROWTH 5 DAYS Normal [facility] CBC AND AUTO DIFFon 02-07-20 24 Band form neutrophils/100 WBC (Bld) 7.0 % Normal [facility] Comment on above: Performed By: #### C BCA, 65007-6, 36273-5, CMP #### [facility] ([id number]) [address] [place] [address] 44624 Erythrocyte distribution width (RBC) [Ratio] 13.1 % Normal 11.5-15.0 [facility] Comment on above: Performed By: #### Dread KEYS, 82800-0, 07247-4, CMP #### [facility] ([id number]) [address] [place] [address] 60374 Hematocrit (Bld) [Volume fraction] 28.9 % Low 39-49 [facility] Comment on above: Performed By: #### Dread KEYS, , 37037-0, CMP #### [facility] ([id number]) [address] [place] [address] 94870 Hemoglobin (Bld) [Mass/Vol] 10.0 g/dL Low 13.0-17.0 [facility] Comment on above: Performed By: #### Dread KEYS, , 27351-9, CMP #### [facility] ([id number]) [address] [place] [address] 15993 Lymphocytes (Bld) [#/Vol] 0.5 10*3/uL Low 1.0-3.5 [facility] Comment on above: Performed By: #### Dread KEYS, , 48386-4, CMP #### [facility] ([id number]) [address] [place] [address] 77270 Lymphocytes/100 WBC (Bld) 2.0 % Normal [facility] Comment on above: Performed By: #### Dread KEYS, , 67047-9, CMP #### [facility] ([id number]) [address] [place] [address] 19164 MCH (RBC) [Entitic mass] 32.7 pg Normal 27-34 [facility] Comment on above: Performed By: #### Dread KEYS, 94606-9, 33559-3, CMP #### [facility] ([id number]) [address] [place] [address] 80963 MCHC (RBC) [Mass/Vol] 34.4 g/dL Normal 32-36 [facility] Comment on above: Performed By: #### Dread KEYS, 02888-5, 30116-5, CMP #### [facility] ([id number]) [address] [place] [address] 72492 MCV (RBC) [Entitic vol] 95 fL Normal 80-100 P [facility] Comment on above: Performed By: #### Dread KEYS, 40801-0, 38648-4, CMP #### [facility] ([id number]) [address] [place] [address] 21865 Monocytes (Bld) [#/Vol] 0.3 10*3/uL Normal 0-0.9 [facility] Comment on above: Performed By: #### Dread KEYS, 50977-1, 38567-5, CMP #### [facility] ([id number]) [address] [place] [address] 91580 Monocytes/100 WBC (Bld) 1.0 % Normal [facility] Comment on above: Performed By: #### Dread KEYS, 86325-3, 11420-4, CMP #### [facility] ([id number]) [address] [place] [address] 85633 Neutrophils (Bld) [#/Vol] 25.0 10*3/uL High 1.5-6.6 [facility] Comment on above: Performed By: #### Dread KEYS, 06070-2, 46089-1, CMP #### [facility] ([id number]) [address] [place] [address] 85222 Platelet mean volume (Bld) [Entitic vol] 9.2 fL Normal 7-12 [facility] Comment on above: Performed By: #### Dread KEYS, 61601-9, 38478-2, CMP #### [facility] ([id number]) [address] [place] [address] Platelets (Bld) [#/Vol] 245 10*3/uL Normal 150-450 [facility] Comment on above: Performed By: #### Dread KEYS, 46459-1, 65243-1, CMP #### [facility] ([id number]) [address] [place] [address] 85356 RBC COUNT 3.05 X10E12/L Low 4.10-5.70 [facility] Comment on above: Performed By: #### Dread KEYS, 13955-4, 31144-9, CMP #### [facility] ([id number]) [address] [place] [address] 28054 RBC morphology finding Nom (Bld) NORMAL Normal [facility] Comment on above: Performed By: #### Dread KEYS, 87856-6, 57895-9, CMP #### [facility] ([id number]) [address] [place] [address] 50622 SEG NEUTROPHIL 90.0 % Normal [facility] Comment on above: Performed By: #### Dread KEYS, 27485-8, 58683-3, CMP #### [facility] ([id number]) [address] [place] [address] 40946 WBC (Bld) [#/Vol] 25.8 10*3/uL High 4.0-11.0 [facility] Comment on above: Performed By: #### Dread KEYS, 32223-6, 17052-8, CMP #### [facility] ([id number]) [address] [place] [address] 11850 COMPREHENSIVE METABOLIC PANE Marcos 02-07-2024 Albumin [Mass/Vol] 3.7 g/dL Normal 3.2-5.3 [place] Comment on above: Performed By: #### Dread KEYS, 49266-7, 41448-4, CMP #### [facility] ([id number]) [address] [place] [address] 67657 ALP [Catalytic activity/Vol] 135 U/L High 39-130 [facility] Comment on above: Performed By: #### Dread BCA, 83080-2, 13216-9, CMP #### [facility] ([id number]) [address] [place] [address] 21169 ALT [Catalytic activity/Vol] 13 U/L Normal 0-40 [facility] Comment on above: Performed By: #### C BCA, 82263-5, 66734-7, CMP #### [facility] ([id number]) [address] [place] [address] 31492 Anion gap [Moles/Vol] 9 mmol/L Normal 5-15 [facility] Comment on above: Performed By: #### Dread KEYS, 94154-6, 00226-7, CMP #### [facility] ([id number]) [address] [place] [address] 21972 AST [Catalytic activity/Vol] 14 U/L Normal 0-41 [facility] Comment on above: Performed By: #### Dread BCA, 34880-6, 67157-7, CMP #### [facility] ([id number]) [address] [place] [address] 25688 Bilirubin [Mass/Vol] 0.5 mg/dL Normal 0.3-1.2 [facility] Comment on above: Performed By: #### C BCA, 57762-5, 47569-1, CMP #### [facility] ([id number]) [address] [place] [address] 07449 Calcium [Mass/Vol] 8.6 mg/dL Normal 8.5-10.5 [place] Comment on above: Performed By: #### Dread BCA, 01083-9, 43182-6, CMP #### [facility] ([id number]) [address] [place] [address] 07318 Chloride [Moles/Vol] 97 mmol/L Low 98-109 [facility] Comment on above: Performed By: #### C LUDMILA, 63297-9, 97172-9, CMP #### [facility] ([id number]) [address] [place] [address] 01766 CO2 [Moles/Vol] 24 mmol/L Normal 22-32 [facility] Comment on above: Performed By: #### C LUDMILA, 83189-3, 39215-8, CMP #### [facility] ([id number]) [address] [place] [address] 74901 Creatinine [Mass/Vol] 2.40 mg/dL High 0.70-1.20 [facility] Comment on above: Result Comment: METH OD TRACEABLE TO IDMS STANDARD Performed By: #### C LUDMILA, 98690-5, 88511-7, CMP #### [facility] ([id number]) [address] [place] [address] 94375 GFR/1.73 sq M.predicted among non-blacks MDRD (S/P/Bld) [Vol rate/Area] 32 mL/min/{1.73_m2} Low >59 [facility] Comment on above: Result Comment: Reported eGFR is based on the CKD-EPI 2020 equation that does not use a race coefficient. Performed By: #### C LUDMILA, 47319-7, 84329-7, CMP #### [facility] ([id number]) [address] [place] [address] 25146 Glucose [Mass/Vol] 499 mg/dL Critically high 65-99 [facility] Comment on above: Performed By: #### C LUDMILA, 11445-6, 83897-7, CMP #### [facility] ([id number]) [address] [place] [address] 57075 Potassium [Moles/Vol] 6.1 mmol/L Critically high 3.5-5.0 [facility] Comment on above: Performed By: #### C LUDMILA, 18857-5, 77442-6, CMP #### [facility] ([id number]) [address] [place] [address] 30959 Protein [Mass/Vol] 7.2 g/dL Normal 6.0-8.0 [place] Comment on above: Performed By: #### C LUDMILA, 11305-4, 51034-2, CMP #### [facility] ([id number]) [address] [place] [address] 61013 Sodium [Moles/Vol] 130 mmol/L Low 134-146 [place] Comment on above: Performed By: #### C LUDMILA, 71028-1, 46790-6, CMP #### [facility] ([id number]) [address] [place] [address] 78040 Urea nitrogen [Mass/Vol] 59 mg/dL High 5-23 [facility] Comment on above: Performed By: #### C LUDMILA, 53540-4, 58645-5, CMP #### [facility] ([id number]) [address] [place] [address] 27805 Fibrin D-dimer DDU (PPP) [Ma ss/Vol]on 02-07-2024 D DIMER 473 ng/mL DDU High <255 [facility] Comment on above: Result Comment: Results >=255ng/mL DDU: Results may be indicative of the presence of VTE. The use of the Wells score and further diagnostic tests should be considered. Elevated D-Dimer levels can also be associated with DIC, neoplasm, , trauma and liver disease. Elevated levels of rheumatoid factor may lead to an overestimation of the D-Dimer level. Performed By: #### C LUDMILA, 82178-4, 36552-2, CMP #### [facility] ([id number]) [address] [place] [address] 75392 Lactate (P ponce) [Moles/Vol]o n 02-07-2024 LACTATE W/REFLEX 1.9 mmol/L Normal 0.4-2.0 [facility] Comment on above: Result Comment: Result did not trigger repeat Lactate, re-order if needed. Performed By: #### C LUDMILA, 79628-9, 71692-8, CMP #### [facility] ([id number]) [address] [place] [address] 39682 MAGNESIUMon 02-07-2024 Magnesium [Mass/Vol] 1.7 mg/dL Low 1.8-2.6 [facility] Comment on above: Performed By: #### C LUDMILA, 15772-6, 26662-8, CMP #### [facility] ([id number]) [address] [place] [address] 04472 Natriuretic peptide B [Mass/ Vol]on 02-07-2024 Natriuretic peptide B (Bld) [Mass/Vol] 793 pg/mL High <100.0 [facility] Comment on above: Performed By: #### C LUDMILA, 64672-4, 07744-9, CMP #### [facility] ([id number]) [address] [place] [address] 95029 PROTIME AND INRon 02-07-2024 INR Coag (PPP) [Relative time] 1.0 {INR} Normal 0.8-1.1 [facility] Comment on above: Performed By: #### C LUDMILA, 25183-7, 39191-9, CMP #### [facility] ([id number]) [address] [place] [address] 87434 PT Coag (PPP) [Time] 11.5 s Normal 9.8-13.2 [facility] Comment on above: Result Comment: NEW REFERENCE RANGE Performed By: #### C LUDMILA, 02432-3, 92723-4, CMP #### [facility] ([id number]) [address] [place] [address] 32988 SARS/FLU A+B/RSV by NAAT/Mol ecularon 02-07-2024 SARS/FLU A+B/RSV by NAAT/Molecular FLU A PCR Negative (qualifier value) FLU B PCR Negative (qualifier value) RSV by PCR Negative (qualifier value) SARS CoV 2 Not detected (qualifier value) NOTE The Xpert Xpress SARS-CoV-2/Flu/RSV Plus test is a rapid, multiplexed real-time RT-PCR test intended for the simultaneous qualitative detection and differentiation of SARS-CoV-2, influenza A, influenza B and respiratory syncytial virus (RSV) viral RNA from individuals suspected of respiratory viral infection consistent with COVID-19 by their healthcare provider. This test has not been validated in asymptomatic patients. The Xpert Xpress SARS-CoV-2 test is intended for use by qualified and trained operators who are performing tests using either [employer] or [employer] systems and is limited to laboratories that meet the CLIA requirements to perform high and moderate complexity tests. The Xpert Xpress SARS-CoV-2/Flu/RSV Plus is only for use under the Food and Drug Administration's Emergency Use Authorization. Results are for the simultaneous detection and differentiation of SARS-CoV-2, influenza A, influenza B and RSV nucleic acids in clinical specimens. SARS-CoV-2, influenza A, influenza B and RSV RNA identified by this test are generally detectable in upper respiratory samples during the acute phase of infection. Positive results are indicative of the presence of the identified virus, but do not rule out bacterial infection or co-infection with other pathogens not detected by this test. Clinical correlation with patient history and other diagnostic information is necessary to determine patient infection status. The agent detected may not be the definite cause of disease. Negative results do not preclude SARS-CoV-2, influenza A, influenza B and RSV infection and should not be used as the sole basis for treatment or other patient management decisions. Negative results must be combined with clinical observations, patient history and epidemiological information. An Invalid result may occur with specimen-associated inhibition unable to be resolved with specimen repeat. Fact Sheet for Healthcare Providers: https://www.fda.gov/medi a/489343/download Fact Sheet for Patients: https://www.fda.gov/medi a/998026/download [facility] Comment on above: Performed By: #### C [facility], 47693-9, 52041-2, CMP #### [facility] ([id number]) [address] [place] [address] Troponin I.cardiac High sens itivity method [Mass/Vol]on 02-07-2024 TROPONIN I, HIGH SENSITIVITY 26 ng/L High <21 [facility] Comment on above: Result Comment: Elevations of hs-Troponin may be due to causes other than myocardial ischemia. Recommend serial hs-Troponin testing be performed. For the initial evaluation and management of chest pain patients, refer to the algorithms linked below. Emergency Patient: [email or web address] &uh=acaea Inpatient: [email or web address] &uh=acaea Performed By: #### C LUDMILA, 78854-8, 88416-8, CMP #### [facility] ([id number]) [address] [place] [address] 54199 aPTT Coag (PPP) [Time]on aPTT Coag (Bld) [Time] 30 s Normal 26-37 [facility] Comment on above: Result Comment: NEW REFERENCE RANGE Performed By: #### C LUDMILA, 96549-4, 03223-4, CMP #### [facility] ([id number]) [address] [place] [address] 55916 Diabetes tracking panelOrder ed By: Kathy Dubose on 01-30-2024 Average glucose Estimated from glycated hemoglobin (Bld) [Mass/Vol] 321 mg/dL [facility] HbA1c (Bld) [Mass fraction] 12.8 % High 4.0 - 5.6 % [facility] Interpretation and review of laboratory results Abnormal [facility] EKG 12 LEAD - PERFORMon - Diagnosis Normal sinus rhythm LVH with left ventricular strain Abnormal ECG Confirmed by KATHY PANCHAL ([id number]) on 01/30/2024 2:58:45 PM [facility] P wave [facility] axis 49 degrees [facility] P-R Interval 152 ms [facility] Q-T interval 374 ms [facility] Q-T interval corrected 457 ms [facility] QRS axis -17 degrees [facility] QRS duration 102 ms [facility] T wave axis 137 degrees [facility] BASIC METABOLIC PANELon 04- Anion gap [Moles/Vol] 14 mmol/L Normal 10-20 [facility] Comment on above: Performed By: #### C H8 #### [facility] [address] [place] [address], Calcium [Mass/Vol] 8.0 mg/dL Low 8.6-10.3 [facility] Comment on above: Performed By: #### C H8 #### [facility] [address] [place] [address], Chloride [Moles/Vol] 107 mmol/L Normal 98-107 [facility] Comment on above: Performed By: #### C H8 #### [facility] [address] [place] [address], CO2 [Moles/Vol] 24 mmol/L Normal 21-31 [facility] Comment on above: Performed By: #### C H8 #### [facility] [address] [place] [address], Creatinine [Mass/Vol] 2.22 mg/dL High 0.70-1.30 [facility] Comment on above: Performed By: #### C H8 #### [facility] [address] [place] [address], ESTIMATED GFR (CKD-EPI) 35 mL/min/1.73sqm Low >=60 [facility] Comment on above: Result Comment: 2020 CKD EPI Equation using Creatinine without Race Comment: Estimated glomerular filtration rate (eGFR) is calculated without a race coefficient. Values should be interpreted in the context of the patient's full clinical presentation. Reference: 1. Osmar [place], Penelope M, Yane FIELDS, et al.. A Unifying Approach for GFR Estimation: Recommendations of the NKF-ASN Task Force on Reassessing the Inclusion of Race in Diagnosing Kidney Disease. [place] Journal of Kidney Diseases 2021;79(2):268-88.e1. 2. N Engl J Med 2020 Vol. 385 Issue 19 Pages 2846-9701 Performed By: #### C H8 #### [facility] [address] [place] [address], Glucose [Mass/Vol] 176 mg/dL High 74-109 [facility] Comment on above: Performed By: #### C H8 #### [facility] [address] [place] [address], Potassium [Moles/Vol] 4.4 mmol/L Normal 3.5-5.0 [facility] Comment on above: Performed By: #### C H8 #### [facility] [address] [place] [address], Sodium [Moles/Vol] 141 mmol/L Normal 136-145 [facility] Comment on above: Performed By: #### C H8 #### [facility] [address] [place] [address], Urea nitrogen [Mass/Vol] 40 mg/dL High 7-25 [facility] Comment on above: Performed By: #### C H8 #### [facility] [address] [place] [address], Basic metabolic 2000 panelon 01-29-2024 Anion gap [Moles/Vol] 14 mmol/L 10 - 20 [facility] Calcium [Mass/Vol] 8.0 mg/dL Low 8.6 - 10. 3 mg/dL [facility] Chloride [Moles/Vol] 107 mmol/L 98 - 10 7 mmol/L [facility] CO2 [Moles/Vol] 24 mmol/L 21 - 31 mmol/L [facility] Creatinine [Mass/Vol] 2.22 mg/dL High 0.70 - 1.30 mg/dL [facility] GFR/1.73 sq M.predicted CKD-EPI (S/P/Bld) [Vol rate/Area] 35 Low - PINF [facility] Comment on above: 2020 CKD EPI Equatio n using Creatinine without Race Comment: Estimated glomerular filtration rate (eGFR) is calculated without a race coefficient. Values should be interpreted in the context of the patient's full clinical presentation. Reference: 1. Osmar C, Penelope M, Yane DC, et al.. A Unifying Approach for GFR Estimation: Recommendations of the NKF-ASN Task Force on Reassessing the Inclusion of Race in Diagnosing Kidney Disease. [place] Journal of Kidney Diseases 2021;79(2):268-88.e1. 2. N Engl J Med 2020 Vol. 385 Issue 19 Pages 3915-5659 Glucose [Mass/Vol] 176 mg/dL High 74 - 109 mg/dL [facility] Interpretation and review of laboratory results Abnormal [facility] Potassium [Moles/Vol] 4.4 mmol/L 3.5 - 5.0 mmol/L [facility] Sodium [Moles/Vol] 141 mmol/L 136 - 145 mmol/L [facility] Urea nitrogen [Mass/Vol] 40 mg/dL High 7 - 25 mg/dL [facility] GLUCOSE, FINGERSTICK-IN OFFI CEon 01-29-2024 Glucose [Mass/Vol] 234 mg/dL High 68-110 [facility] Comment on above: Result Comment: Raghavendra ness RN, APN, MD Performed By: #### 8 2948 #### NURSING GLUCOSE PROGRAM [address] [place] [address], [address]35[address] Glucose [Mass/Vol] 234 mg/dL High 68 - 110 mg/dL [facility] Comment on above: Notified TANYA DE LEON MD Interpretation and review of laboratory results Abnormal [facility] HEMOGLOBIN A1Con 01-29-2024 Glucose [Mass/Vol] 321 mg/dL Normal [facility] Comment on above: Performed By: #### H B A1C #### [facility] [address] [place], [address] HbA1c (Bld) [Mass fraction] 12.8 % High 4.0-5.6 [facility] Comment on above: Performed By: #### H B A1C #### [facility] [address] [place] [address], [id number] PAT Appt H AND Jarad 4 [employer] Authentication Interface Message Text Patient was identified by name and date of . 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 Authentication Interface Message Text On the morning of your surgery, please take only the following medications, with a small sip of water: levothyroxine (SYNTHROID) 25 MCG tablet omeprazole (PRILOSEC) 20 MG capsule terazosin (HYTRIN) 2 MG capsule isosorbide dinitrate (ISORDIL) 30 MG tablet CARvedilol (COREG) 12.5 MG tablet citalopram (CeleXA) 20 MG tablet Do not take vitamins, losartan, bumetanide the morning of surgery Do not take trazodone the night before surgery Do not take ropinirole the night before or the morning of surgery Stop aspirin 1 week before surgery (last dose on 01/29) Stop plavix 5 days before surgery (last dose on 01/31) You will receive a call the day before surgery between 10 am and 3 pm notifying you what time to arrive for surgery. No solid foods, dairy, gum, or mints/hard candy after midnight. Clear liquids such as water, apple juice, abrahan delmy, gatorade, coffee and tea without dairy or creamer are allowed up to 2 hours before arrival time. Make sure hair, face, and body are clean. Do not apply lotions, creams, powders, ointments, deodorant, make-up or cologne/perfume the morning of surgery. Remove all body piercing's and jewelry. Do not take Ibuprofen, Aleve, Advil, Motrin or any other NSAIDS (celebrex, meloxicam, naproxen, diclofenac) 3 days before surgery. May take over the counter Acetaminophen (Tylenol) as needed for pain. Please hold all Vitamin E, [place] 3, fish oil and herbal supplements for 1 week prior to surgery. Normal [facility] Patient Letteron 01-22-2024 Patient Letter [id number]#1.00OTG TIFF Normal [facility] Outside Recordson 01-15-2024 Outside Records [id number]#1.00OTG TIFF Normal [facility] Outside Recordson 01-14-2024 Outside Records [id number]#1.00OTGT IFF Normal [facility] Outside Records [id number]#1.00OTGT IFF Normal [facility] Activated partial thrombopla stin time (aPTT) in platelet poor plasma by coagulation aOrdered By: Kan Rodriguez on 01-13-2024 aPTT Coag (PPP) [Time] 27.0 s 25.1-36.5 [facility] Comment on above: A hematocrit value g reater than 55% may lead to inaccurate results in coagulation testing. Patients having hematocrit values >55% require a special collection tube for coagulation studies. Please contact the laboratory at [phone] for redraw instructions. Alanine aminotransferase [En zymatic activity/volume] in Serum or PlasmaOrdered By: Kan Rodriguez on 01-13-2024 ALT [Catalytic activity/Vol] 18 U/L 7-52 [facility] Albumin [Mass/volume] in Ser um or Plasma by Bromocresol green (BCG) dye binding methoOrdered By: Kan Rodriguez on 01-13-2024 Albumin BCG dye [Mass/Vol] 4.1 g/dL 3.5-5.7 [facility] Alkaline phosphatase [Enzyma tic activity/volume] in Serum or PlasmaOrdered By: Kan Rodriguez on 01-13-2024 ALP [Catalytic activity/Vol] 114 U/L 34-104 [facility] Aspartate aminotransferase [ Enzymatic activity/volume] in Serum or PlasmaOrdered By: Kan Rodriguez on 01-13-2024 AST [Catalytic activity/Vol] 13 U/L 13-39 [facility] Automated erythrocytes count in urine sediment (number/area)Ordered By: Kan Rodriguez on 01-13-2024 RBC Auto (Urine sed) [#/Area] None seen [HPF] 0-4 [facility] Automated leukocytes count i n urine sediment (number/area)Ordered By: Kan Rodriguez on 01-13-2024 WBC Auto (Urine sed) [#/Area] 0-1 [HPF] 0-4 [facility] Basophils Auto (Bld) [#/Vol] Ordered By: Kan Rodriguez on 01-13-2024 Basophils (Bld) [#/Vol] 0.0 10*3/uL 0.0-0.2 [facility] Basophils/100 WBC Auto (Bld) Ordered By: Kan Rodriguez on 01-13-2024 Basophils/100 WBC (Bld) 0.6 % . [facility] Bilirubin Test strip Ql (U)O rdered By: Kan Rodriguez on 01-13-2024 Bilirubin Ql (U) Negative Negative [facility] Bilirubin.total [Mass/volume ] in Serum or PlasmaOrdered By: Kan Rodriguez on 01-13-2024 Bilirubin [Mass/Vol] 0.4 mg/dL 0.3-1.0 [facility] CT abdomen pelvis wo conon 0 01-13-2024 CT abdomen pelvis wo con [facility] [place] [place] [address] CT Scan Report Signed Patient: Chandler Minor MR#: [id number] 20 : 1970 Acct:[id number] Age/Sex: 53 / M ADM Date: 01/13/24 Loc: ER Room: Type: [facility] ER Attending Dr: Copies to: Kan Rodriguez MD Ordering Provider: Kan Rodriguez MD Date of Service: 01/13/24 CT/CT abdomen pelvis wo con: nmbv CT ABDOMEN AND PELVIS WITHOUT CONTRAST. COMPARISON: 04/16/2023 CLINICAL DATA: Next, lightheadedness and hypotension. Spiral images were obtained through the abdomen and pelvis without contrast. This CT exam was performed using one or more following dose reduction techniques: Automated exposure control, adjustment of the mA and/or kV according to patient size, or use of iterative reconstruction technique. Limited cuts through the lung bases show a millimeter nodular density at the right middle lobe that may be associated with the fissure, not included on the comparison abdominal CT. There is minimal atelectasis or scarring. There is a trace amount of pericardial fluid. Assessment of the intra-abdominal organs is slightly limited by the absence of contrast. No calcified gallstones are present. No intrahepatic masses are seen. The spleen, pancreas and adrenal glands show no acute findings. No renal calculi or hydronephrosis are identified. There is no ureteral dilatation or stones. There is mild atherosclerotic plaque at the aorta, iliac and proximal renal arteries. There are small lymph nodes. No ascites is seen. There is fluid within the stomach. The small bowel loops are not disproportionately distended. There is stool throughout the colon. There is a tiny umbilical hernia containing fat. Levoscoliotic curvature and degenerative changes are seen at the spine, greatest at the lower facets. There is also mild degenerative change at the SI joints, greater on the right. Images through the pelvis show no dilated small bowel. No appendiceal inflammation is seen. There is mild stool at the distal colon. No diverticular disease is noted. The prostate is not enlarged. The urinary bladder is not well distended and the wall appears thickened. No intraluminal abnormalities are present. There are small benign-appearing inguinal lymph nodes. There is a mildly patulous left inguinal ring containing fat. No ascites is seen. 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 CT/CT abdomen pelvis wo con IMPRESSION: TINY INCIDENTAL RIGHT MIDDLE LOBE PULMONARY NODULE. NO OBSTRUCTIVE UROPATHY OR STONE DISEASE. NO BOWEL OBSTRUCTION. URINARY BLADDER WALL THICKENING. THIS MAY RELATE TO UNDERDISTENTION HOWEVER CYSTITIS IS NOT EXCLUDED. CORRELATION IS SUGGESTED. NO OTHER ACUTE FINDINGS. Impression dictated by: Lola Lamas M.D.01/13/2024 3:24 PM Dictation Location: [place] [address] Transcribed By: [facility] 01/13/24 1524 Dictated By: Lola Lamas MD 01/13/24 1515 Signed By: 01/13/24 1524 Normal [facility] CT head/brain wo [facility] 01-12 CT head/brain wo [facility] [address] [place] [address] CT Scan Report Signed Patient: Chandler Minor MR#: [id number] [birth year] : 1970 Acct:[id number] Age/Sex: 53 / M ADM Date: 01/13/24 Loc: ER Room: Type: [facility] ER Attending Dr: Copies to: Kan Rodriguez MD Ordering Provider: Kan Rodriguez MD Date of Service: 01/13/24 CT/CT head/brain wo con: kj CT BRAIN WITHOUT CONTRAST: CLINICAL HISTORY: Headaches, lightheadedness and hypotension. COMPARISON: 01/10/2022 and MRI 05/30/2018 TECHNIQUE: Contiguous axial unenhanced images were obtained through the brain. This CT exam was performed using one or more following dose reduction techniques: Automated exposure control, adjustment of the mA and/or kV according to patient size, or use of iterative reconstruction technique. FINDINGS: The ventricles are normal in size and position. Similar areas of hypodensity are again seen at the posterior cerebellum bilaterally. There are no developing areas of abnormal attenuation. There is no hemorrhage, mass effect or extra-axial collections. The imaged paranasal sinuses and mastoid air cells are clear. CT/CT head/brain wo con IMPRESSION: NO ACUTE INTRACRANIAL ABNORMALITY. Impression dictated by: Lola Lamas M.D.01/13/2024 3:15 PM Dictation Location: [place] [address] Transcribed By: DIEGO 01/13/24 1515 Dictated By: Lola Lamas MD 01/13/24 1510 Signed By: 01/13/24 1515 Normal [facility] Calcium [Mass/volume] in Ser um or PlasmaOrdered By: Kan Rodriguez on 01-13-2024 Calcium [Mass/Vol] 9.3 mg/dL 8.6-10.3 [facility] Carbon dioxide, total [Moles /volume] in Serum or PlasmaOrdered By: Kan Rodriguez on 01-13-2024 CO2 [Moles/Vol] 28.8 mmol/L 21.0-31.0 [facility] Chloride [Moles/volume] in S guadalupe or PlasmaOrdered By: Kan Rodriguez on 01-13-2024 Chloride [Moles/Vol] 100 mmol/L 98-107 [facility] Color Auto (U)Ordered By: Leila Rodriguez on 01-13-2024 Color (U) Yellow Yellow [facility] Complete Blood Count Auto Di ffon 01-13-2024 Basophils (Bld) [#/Vol] 0.0 10*3/uL Normal 0.0-0.2 [facility] Comment on above: Result Comment: PERF ORMED BY: [facility] [address] [place] [address] PATHOLOGIST CASHIER HOST/HOSTESS MOOK BROWN M.D. Performed By: #### B MP, MG, CBC #### [facility] [address] Basophils/100 WBC (Bld) 0.6 % Normal . Mitul fowler [facility] Comment on above: Performed By: #### B MP, MG, CBC #### [facility] [address] Eosinophils (Bld) [#/Vol] 0.2 10*3/uL Normal 0.0-0.45 [facility] Comment on above: Performed By: #### B MP, MG, CBC #### [address] Eosinophils/100 WBC (Bld) 3.1 % Normal . [facility] Comment on above: Performed By: #### B MP, MG, CBC #### [address] Erythrocyte distribution width (RBC) [Ratio] 12.7 % Normal 12.0-14.8 [facility] Comment on above: Performed By: #### B MP, MG, CBC #### [address] Hematocrit (Bld) [Volume fraction] 30.5 % Low 38.8-50.0 [facility] Comment on above: Performed By: #### B MP, MG, CBC #### [address] Hemoglobin (Bld) [Mass/Vol] 10.4 g/dL Low 13.0-17.0 [facility] Comment on above: Performed By: #### B MP, MG, CBC #### [place] [address] [place] Lymphocytes (Bld) [#/Vol] 1.1 10*3/uL Normal 1.00-4.8 [facility] Comment on above: Performed By: #### B MP, MG, CBC #### [facility] [address] [place] [address] [place] Lymphocytes/100 WBC (Bld) 14.0 % Normal . [facility] Comment on above: Performed By: #### B MP, MG, CBC #### [facility] [address] MCH (RBC) [Entitic mass] 32.4 pg Normal 27.5-35.2 [facility] Comment on above: Performed By: #### B MP, MG, CBC #### [address] MCV (RBC) [Entitic vol] 94.7 fL Normal 83.5-101 [facility] Comment on above: Performed By: #### B MP, MG, CBC #### [address] Mean Corpuscular HGB Conc 34.2 g/dL Normal 32.5-35.6 [facility] Comment on above: Performed By: #### B MP, MG, CBC #### [address] Monocytes (Bld) [#/Vol] 0.6 10*3/uL Normal 0.0-0.8 [facility] Comment on above: Performed By: #### B MP, MG, CBC #### [place] [address] [place] Monocytes/100 WBC (Bld) 14.88 % Normal 0.00-20.00 [facility] Comment on above: Performed By: #### B MP, MG, CBC #### [address] Monocytes/100 WBC (Bld) 7.1 % Normal . [facility] Comment on above: Performed By: #### B MP, MG, CBC #### [address] Neutrophils (Bld) [#/Vol] 6.0 10*3/uL Normal 1.8-7.7 [facility] Comment on above: Performed By: #### B MP, MG, CBC #### [address] Neutrophils/100 WBC (Bld) 75.2 % Normal . [facility] Comment on above: Performed By: #### B MP, MG, CBC #### [address] NRBC% 0.1 /100{WBC} Normal 0-0.[address] [facility] Comment on above: Performed By: #### B MP, MG, CBC #### [address] Platelet mean volume (Bld) [Entitic vol] 9.8 fL Normal 6.6-10.1 [facility] Comment on above: Performed By: #### B MP, MG, CBC #### [address] Platelets (Bld) [#/Vol] 203 10*3/uL Normal 150-450 [facility] Comment on above: Performed By: #### B MP, MG, CBC #### [address] RBC (Bld) [#/Vol] 3.22 10*6/uL Low 3.90-5.[address] [facility] Comment on above: Performed By: #### B MP, MG, CBC #### [address] WBC (Bld) [#/Vol] 7.9 10*3/uL Normal 4.1-10.5 [facility] Comment on above: Performed By: #### B MP, MG, CBC #### [address] Comprehensive Metabolic Pane marcos 01-13-2024 Albumin [Mass/Vol] 4.1 g/dL Normal 3.5-5.7 [facility] Comment on above: Performed By: #### B MP, MG, CBC #### [address] Albumin/Globulin [Mass ratio] 1.7 {ratio} Normal [facility] Comment on above: Performed By: #### B MP, MG, CBC #### [address] ALP [Catalytic activity/Vol] 114 U/L High 34-104 [facility] Comment on above: Performed By: #### B MP, MG, CBC #### [address] ALT [Catalytic activity/Vol] 18 U/L Normal 7-52 [facility] Comment on above: Performed By: #### B MP, MG, CBC #### [address] Anion gap [Moles/Vol] 11.8 mmol/L Normal 6.0-15.0 Th e [facility] Comment on above: Performed By: #### B MP, MG, CBC #### [address] AST [Catalytic activity/Vol] 13 U/L Normal 13-39 [facility] Comment on above: Performed By: #### B MP, MG, CBC #### [address] Bilirubin [Mass/Vol] 0.4 mg/dL Normal 0.3-1.0 [facility] Comment on above: Performed By: #### B MP, MG, CBC #### [address] Calcium [Mass/Vol] 9.3 mg/dL Normal 8.6-10.3 [facility] Comment on above: Performed By: #### B MP, MG, CBC #### [place] [address] [place] Chloride [Moles/Vol] 100 mmol/L Normal 98-107 [facility] Comment on above: Performed By: #### B MP, MG, CBC #### [facility] [address] [place] [address] [place] CO2 [Moles/Vol] 28.8 mmol/L Normal 21.0-31.0 [facility] Comment on above: Performed By: #### B MP, MG, CBC #### [facility] [address] [place] [address] Creatinine [Mass/Vol] 2.75 mg/dL High 0.70-1.30 [facility] Comment on above: Performed By: #### B MP, MG, CBC #### [address] Creatinine Clr Calc Pharmacy 35.56 Normal [facility] Comment on above: Result Comment: PERF ORMED BY: [place] [address] PATHOLOGIST CASHIER HOST/HOSTESS MOOK BROWN M.D. Performed By: #### B MP, MG, CBC #### [address] GFR/1.73 sq M.predicted MDRD (S/P/Bld) [Vol rate/Area] 26.898 mL/min/{1.73_m2} Normal [facility] Comment on above: Performed By: #### B MP, MG, CBC #### [place] [address] [place] Globulin (S) [Mass/Vol] 2.4 g/dL Normal T he [facility] Comment on above: Performed By: #### B MP, MG, CBC #### [address] Glucose [Mass/Vol] 397 mg/dL High 70-100 [facility] Comment on above: Result Comment: [facility] Glucose Reference Range is dependent on time and content of last meal. Glucose of more than 200 mg/dL in a nonstressed, ambulatory subject supports the diagnosis of Diabetes Mellitus. ADA recommended reference range Performed By: #### B MP, MG, CBC #### [address] Potassium [Moles/Vol] 5.6 mmol/L High 3.5-5.1 [facility] Comment on above: Performed By: #### B MP, MG, CBC #### [address] Protein [Mass/Vol] 6.5 g/dL Normal 6.4-8.9 [facility] Comment on above: Performed By: #### B MP, MG, CBC #### [facility] [address] Sodium [Moles/Vol] 135 mmol/L Low 136-145 [facility] Comment on above: Performed By: #### B MP, MG, CBC #### [facility] [address] Urea nitrogen [Mass/Vol] 59 mg/dL High 7-25 [facility] Comment on above: Performed By: #### B MP, MG, CBC #### [facility] [address] Creatinine [Mass/volume] in Serum or PlasmaOrdered By: Kan Rodriguez on 01-13-2024 Creatinine [Mass/Vol] 2.75 mg/dL 0.70-1.30 [facility] Dipstick and Microscopicon 0 01-13-2024 Appearance (U) Clear Normal Clear [facility] Comment on above: Order Comment: Name Collection Type:: Clean-Voided Midstream Performed By: #### R EDRAW MG, REDRAW NA, REDRAW K #### [place] [address] [place] Bacteria,Urine None Seen Normal None Seen [facility] Comment on above: Order Comment: Name Collection Type:: Clean-Voided Midstream Performed By: #### R EDRAW MG, REDRAW NA, REDRAW K #### [place] [address] [place] Bilirubin,Urine Negative Normal Negative [facility] Comment on above: Order Comment: Name Collection Type:: Clean-Voided Midstream Performed By: #### R EDRAW MG, REDRAW NA, REDRAW K #### [place] [address] [place] Color (U) Yellow Normal Yellow [facility] Comment on above: Order Comment: Name Collection Type:: Clean-Voided Midstream Performed By: #### R EDRAW MG, REDRAW NA, REDRAW K #### [place] [address] [place] Glucose Ql (U) >=1000 High Normal [facility] Comment on above: Order Comment: Name Collection Type:: Clean-Voided Midstream Performed By: #### R EDRAW MG, REDRAW NA, REDRAW K #### [facility] [address] Hyaline Casts,Urine 0-8 Normal 0-8 [facility] Comment on above: Order Comment: Name Collection Type:: Clean-Voided Midstream Result Comment: PERF ORMED BY: [place] [address] PATHOLOGIST CASHIER HOST/HOSTESS MOOK BROWN M.D. Performed By: #### R EDRAW MG, REDRAW NA, REDRAW K #### [address] Ketones Ql (U) Negative Normal Negative [facility] Comment on above: Order Comment: Name Collection Type:: Clean-Voided Midstream Performed By: #### R EDRAW MG, REDRAW NA, REDRAW K #### [facility] [address] [place] [address] [place] Leukocyte esterase Test strip Ql (U) Negative Normal Negative [facility] Comment on above: Order Comment: Name Collection Type:: Clean-Voided Midstream Performed By: #### R EDRAW MG, REDRAW NA, REDRAW K #### [facility] [address] [place] [address] [place] Nitrite,Urine Negative Normal Negative The [facility] Comment on above: Order Comment: Name Collection Type:: Clean-Voided Midstream Performed By: #### R EDRAW MG, REDRAW NA, REDRAW K #### [facility] [address] [place] [address] [place] Occult Blood,Urine Negative Normal Negative [facility] Comment on above: Order Comment: Name Collection Type:: Clean-Voided Midstream Result Comment: PERF ORMED BY: [place] [address] PATHOLOGIST CASHIER HOST/HOSTESS MOOK BROWN M.D. Performed By: #### R EDRAW MG, REDRAW NA, REDRAW K #### [address] pH (U) 5.5 [pH] Normal 5.0-9.0 [facility] Comment on above: Order Comment: Name Collection Type:: Clean-Voided Midstream Performed By: #### R EDRAW MG, REDRAW NA, REDRAW K #### [address] Protein (U) [Mass/Vol] 100 mg/dL High Negative Th e [facility] Comment on above: Order Comment: Name Collection Type:: Clean-Voided Midstream Performed By: #### R EDRAW MG, REDRAW NA, REDRAW K #### [address] RBC,Urine None Seen Normal 0-4 [facility] Comment on above: Order Comment: Name Collection Type:: Clean-Voided Midstream Performed By: #### R EDRAW MG, REDRAW NA, REDRAW K #### [address] Specificy Chambers,Urine 1.014 Normal 1.00 1-1.03 0 [facility] Comment on above: Order Comment: Name Collection Type:: Clean-Voided Midstream Performed By: #### R EDRAW MG, REDRAW NA, REDRAW K #### [address] Squamous Epithelial Cell,Urine None Seen Normal 0-2 [facility] Comment on above: Order Comment: Name Collection Type:: Clean-Voided Midstream Performed By: #### R EDRAW MG, REDRAW NA, REDRAW K #### [address] Urobilinogen,Urine Normal Normal Normal [facility] Comment on above: Order Comment: Name Collection Type:: Clean-Voided Midstream Performed By: #### R EDRAW MG, REDRAW NA, REDRAW K #### [facility] [address] WBC LM.HPF (Urine sed) [#/Area] 0 /[HPF] Normal 0-4 [facility] Comment on above: Order Comment: Name Collection Type:: Clean-Voided Midstream Performed By: #### R EDRAW MG, REDRAW NA, REDRAW K #### [facility] [address] ECG 12 lead ECGon 01-13-2024 ECG 12 lead ECG [facility] [address] [address] [place] [address] Electrocardiograph Report Signed Patient: Chandler Minor MR#: [id number] 20 : 1970 Acct:[id number] Age/Sex: 53 / M ADM Date: 01/13/24 Loc: ER Room: Type: [facility] ER Attending Dr: Ordering Provider: Kan Rodriguez MD Date of Service: 01/13/2411/06/1417 ECG/ECG 12 lead ECG: Headache Copies to: Test Reason : Blood Pressure : 110/060 mmHG Vent. Rate : 069 BPM Atrial Rate : 069 BPM P-R Int : 162 ms QRS Dur : 106 ms QT Int : 414 ms P-R-T Axes : 054 -34 067 degrees QTc Int : 443 ms Normal sinus rhythm Left axis deviation Left ventricular hypertrophy with repolarization abnormality Abnormal ECG When compared with ECG of 21-APR-2022 21:11, No significant change was found Confirmed by KAN RODRIGUEZ MD ([id number]) on 01/13/2024 5:59:21 PM Referred By: Electronically Signed By:KAN RODRIGUEZ MD Transcribed By: MUS Signed By Kan Rodriguez MD 01/13/24 0689 Normal [facility] Eosinophils Auto (Bld) [#/Vo l]Ordered By: Kan Rodriguez on 01-13-2024 Eosinophils (Bld) [#/Vol] 0.2 10*3/uL 0.0-0.45 [facility] Eosinophils/100 WBC Auto (Bl d)Ordered By: Kan Rodriguez on 01-13-2024 Eosinophils/100 WBC (Bld) 3.1 % . [facility] Erythrocyte distribution wid th Auto (RBC) [Ratio]Ordered By: Kan Rodriguez on 01-13-2024 Erythrocyte distribution width (RBC) [Ratio] 12.7 % 12.0-14.8 [facility] Globulin Calc (S) [Mass/Vol] Ordered By: Kan Rodriguez on 01-13-2024 Globulin (S) [Mass/Vol] 2.4 g/dL [facility] Glucose [Mass/volume] in Ser um or PlasmaOrdered By: Kan Rodriguez on 01-13-2024 Glucose [Mass/Vol] 397 mg/dL 70-100 [facility] Comment on above: ADA recommended refe rence rangeRandom Glucose Reference Range is dependent on time and content of last meal. Glucose of more than 200 mg/dL in a nonstressed, ambulatory subject supports the diagnosis of Diabetes Mellitus. Hematocrit Auto (Bld) [Volum e fraction]Ordered By: Kan Rodriguez on 01-13-2024 Hematocrit (Bld) [Volume fraction] 30.5 % 38.8-50.0 [facility] Hemoglobin [Mass/volume] in BloodOrdered By: Kan Rodriguez on 01-13-2024 Hemoglobin (Bld) [Mass/Vol] 10.4 g/dL 13.0-17.0 [facility] INR in Platelet poor plasma by Coagulation assayOrdered By: Kan Rodriguez on 01-13-2024 INR Coag (PPP) [Relative time] 0.9 {INR} [facility] Comment on above: INR Therapeutic Rang [...] with mechanical heart valves: 3 - 4.5 Ketones Auto test strip (U) [Mass/Vol]Ordered By: Kan Rodriguez on 01-13-2024 Ketones (U) [Mass/Vol] Negative Negative Fi [facility] - UrinalysisOrder ed By: Kan Rodriguez on 01-13-2024 Hyaline casts LM Ql (Urine sed) 0-8 [LPF] 0-8 [facility] Leukocytes [#/volume] correc hamlet for nucleated erythrocytes in Blood by Automated counOrdered By: Kan Rodriguez on 01-13-2024 WBC corrected for nucl RBC Auto (Bld) [#/Vol] 7.9 10*3/uL 4.1-10.5 [facility] Lymphocytes Auto (Bld) [#/Vo l]Ordered By: Kan Rodriguez on 01-13-2024 Lymphocytes (Bld) [#/Vol] 1.1 10*3/uL 1.00-4.8 [facility] Lymphocytes/100 WBC Auto (Bl d)Ordered By: Kan Rodriguez on 01-13-2024 Lymphocytes/100 WBC (Bld) 14.0 % . [facility] MCH Auto (RBC) [Entitic mass ]Ordered By: Kan Rodriguez on 01-13-2024 MCH (RBC) [Entitic mass] 32.4 pg 27.5-35.2 [facility] MCHC Auto (RBC) [Mass/Vol]Or dered By: Kan Rodriguez on 01-13-2024 MCHC (RBC) [Mass/Vol] 34.2 g/dL 32.5-35.6 [facility] MCV Auto (RBC) [Entitic vol] Ordered By: Kan Rodriguez on 01-13-2024 MCV (RBC) [Entitic vol] 94.7 fL 83.5-101 F [facility] Monocyte distribution width [Entitic volume] in Blood by AutomatedOrdered By: Kan Rodriguez on 01-13-2024 Monocyte distribution width Auto (Bld) [Entitic vol] 14.88 % 0.00-20.00 [facility] Monocytes Auto (Bld) [#/Vol] Ordered By: Kan Rodriguez on 01-13-2024 Monocytes (Bld) [#/Vol] 0.6 10*3/uL 0.0-0.8 [facility] Monocytes/100 WBC Auto (Bld) Ordered By: Kan Rodriguez on 01-13-2024 Monocytes/100 WBC (Bld) 7.1 % . F [facility] Neutrophils Auto (Bld) [#/Vo l]Ordered By: Kan Rodriguez on 01-13-2024 Neutrophils (Bld) [#/Vol] 6.0 10*3/uL 1.8-7.7 [facility] Neutrophils/100 WBC Auto (Bl d)Ordered By: Kan Rodriguez on 01-13-2024 Neutrophils/100 WBC (Bld) 75.2 % . [facility] Nitrite Test strip Ql (U)Ord ered By: Kan Rodriguez on 01-13-2024 Nitrite Ql (U) Negative Negative [facility] No Panel InformationOrdered By: Kan Rodriguez on 01-13-2024 Estimated GFR (CKD-EPI) 26.898 mL/Min [facility] Creatinine Clearance (Chem 35.56 [facility] Nucleated erythrocytes [Pres ence] in Blood by Automated countOrdered By: Kan Rodriguez on 01-13-2024 Nucleated RBC Auto Ql (Bld) 0.1 /100{WBC} 0-0.5 [facility] Partial Thromboplastin Timeo n 01-13-2024 aPTT Coag (Bld) [Time] 27.0 s Normal 25.1-36.5 [facility] Comment on above: Result Comment: A he matocrit value greater than 55% may lead to inaccurate results in coagulation testing. Patients having hematocrit values >55% require a special collection tube for coagulation studies. Please contact the laboratory at [phone] for redraw instructions. PERFORMED BY: [place] [address] PATHOLOGIST CASHIER HOST/HOSTESS MOOK BROWN M.D. Performed By: #### B MP, MG, CBC #### [address] Platelet mean volume Auto (B ld) [Entitic vol]Ordered By: Kan Rodriguez on 01-13-2024 Platelet mean volume (Bld) [Entitic vol] 9.8 fL 6.6-10.1 [facility] Platelets Auto (Bld) [#/Vol] Ordered By: Kan Rodriguez on 01-13-2024 Platelets (Bld) [#/Vol] 203 10*3/uL 150-450 [facility] Potassiumon 01-13-2024 Potassium [Moles/Vol] 5.4 mmol/L High 3.5-5.1 [facility] Comment on above: Result Comment: PERF ORMED BY: [place] [address] PATHOLOGIST CASHIER HOST/HOSTESS MOOK BROWN M.D. Performed By: #### R MONISHA MG, REDRAW NA REDRAW K #### [address] Potassium [Moles/volume] in Serum or PlasmaOrdered By: Kan Rodriguez on 01-13-2024 Potassium [Moles/Vol] 5.4 mmol/L 3.5-5.1 [facility] Protein Auto test strip (U) [Mass/Vol]Ordered By: Kan Rodriguez on 01-13-2024 Protein (U) [Mass/Vol] 100 mg/dL Negative [facility] Protein [Mass/volume] in Ser um or PlasmaOrdered By: Kan Rodriguez on 01-13-2024 Protein [Mass/Vol] 6.5 g/dL 6.4-8.9 [facility] Prothrombin Time INRon 01-12 INR Coag (PPP) [Relative time] 0.9 {INR} Normal [facility] Comment on above: Result Comment: INR Therapeutic Range A) Pre- and Peroperative OAT started two weeks before surgery. NOT HIP SURGERY: 1.5 - 2.5 HIP SURGERY: 2 - 3 B) Primary and secondary prevention of venous THROMBOSIS: 2 - 3 C) Active venous thrombosis, pulmonary embolism and prevention of recurrent venous thrombosis: 2 - 3 D) Prevention of arterial thromboembolism including patients with mechanical heart valves: 3 - 4.5 Performed By: #### B MP, MG, CBC #### [place] [id number] [facility] PT Coag (PPP) [Time] 10.4 s Normal 9.0-12.9 [facility] Comment on above: Result Comment: A he matocrit value greater than 55% may lead to inaccurate results in coagulation testing. Patients having hematocrit values >55% require a special collection tube for coagulation studies. Please contact the laboratory at [phone] for redraw instructions. Performed By: #### B MP, MG, CBC #### [place] [id number] [facility] Prothrombin time (PT)Ordered By: Kan Rodriguez on 01-13-2024 PT Coag (PPP) [Time] 10.4 s 9.0-12.9 [facility] Comment on above: A hematocrit value g reater than 55% may lead to inaccurate results in coagulation testing. Patients having hematocrit values >55% require a special collection tube for coagulation studies. Please contact the laboratory at [phone] for redraw instructions. RBC Auto (Bld) [#/Vol]Ordere d By: Kan Rodriguez on 01-13-2024 RBC (Bld) [#/Vol] 3.22 10*6/uL 3.90-5.60 [facility] Serum or plasma albumin/glob ulin mass ratioOrdered By: Kan Rodriguez on 01-13-2024 Albumin/Globulin [Mass ratio] 1.7 {ratio} [facility] Serum or plasma anion gap de terminationOrdered By: Kan Rodriguez on 01-13-2024 Anion gap [Moles/Vol] 11.8 mmol/L 6.0-15.0 [facility] Sodium [Moles/volume] in Ser um or PlasmaOrdered By: Kan Rodriguez on 01-13-2024 Sodium [Moles/Vol] 135 mmol/L 136-145 [facility] Specific gravity Auto test s trip (U) [Rel density]Ordered By: Kan Rodriguez on 01-13-2024 Specific gravity (U) [Rel density] 1.014 1.001-1.03 0 [facility] Squamous epithelial cells de tection in urine sediment by light microscopyOrdered By: Kan Rodriguez on 01-13-2024 Epithelial cells.squamous LM Ql (Urine sed) None seen [HPF] 0-2 [facility] Troponin I High Sensitivityo n 01-13-2024 Troponin I High Sensitivity 19.9 pg/mL Normal 0.0-20.0 [facility] Comment on above: Result Comment: PERF ORMED BY: [address] [address] PATHOLOGIST CASHIER HOST/HOSTESS MOOK BROWN M.D. Performed By: #### B MP, MG, CBC #### [address] [address] [facility] Troponin I.cardiac [Mass/vol ume] in Serum or Plasma by Detection limit <= 0.01 ng/Ordered By: Kan Rodriguez on 01-13-2024 Troponin I.cardiac DL <= 0.01 ng/mL [Mass/Vol] 19.9 pg/mL 0.0-20.0 [facility] Urea nitrogen [Mass/volume] in Serum or PlasmaOrdered By: Kan Rodriguez on 01-13-2024 Urea nitrogen [Mass/Vol] 59 mg/dL 7-25 [facility] Urine bacteria detection by automated methodOrdered By: Kan Rodriguez on 01-13-2024 Bacteria Auto Ql (U) None seen None Seen [facility] Urine clarity by refractomet ry automatedOrdered By: Kan Rodriguez on 01-13-2024 Clarity Refractometry automated (U) Clear Clear [facility] Urine glucose measurement by automated test strip (mass/volume)Ordered By: Kan Rodriguez on 01-13-2024 Glucose Auto test strip (U) [Mass/Vol] >=1000 mg/dL Normal [facility] Urine hemoglobin detection b y automated test stripOrdered By: Kan Rodriguez on 01-13-2024 Hemoglobin Auto test strip Ql (U) Negative Negative [facility] Urine leukocyte esterase det ection by automated test stripOrdered By: Kan Rodriguez on 01-13-2024 Leukocyte esterase Auto test strip Ql (U) Negative Negative [facility] Urobilinogen Auto test strip (U) [Mass/Vol]Ordered By: Kan Rodriguez on 01-13-2024 Urobilinogen (U) [Mass/Vol] Normal mg/dL Normal [facility] WBC Auto (Bld) [#/Vol]Ordere d By: Kan Rodriguez on 01-13-2024 WBC (Bld) [#/Vol] 7.9 10*3/uL 4.1-10.5 [facility] XR chest 1V portableon 01-12 XR chest 1V portable [facility] [address] [place] [address] XRay Report Signed Patient: Chandler Minor MR#: [id number] 20 : 1970 Acct:[id number] Age/Sex: 53 / M ADM Date: 01/13/24 Loc: ER Room: Type: PRE ER Attending Dr: Copies to: Kan Rodriguez MD Ordering Provider: Kan Rodriguez MD Date of Service: 01/13/24 XR/XR chest 1V portable: Headache PORTABLE AP ERECT CHEST 1447 hours CLINICAL HISTORY: Headaches and lightheadedness. Hypotension COMPARISON: 04/21/2022 The heart is within normal limits. There is no vascular congestion. The lungs, as visualized, are clear. There is no effusion or pneumothorax. The osseous structures are intact. End plate spurring is present at the spine. There are also degenerative changes at the right shoulder. XR/XR chest 1V portable IMPRESSION: NO ACUTE FINDINGS Impression dictated by: Lola Lamas M.D.01/13/2024 3:10 PM Dictation Location: [place] [address] Transcribed By: [facility] 01/13/241509 Dictated By: Lola Lamas MD 01/13/241509 Signed By: 01/13/24 1510 Normal [facility] pH Auto test strip (U)Ordere d By: Kan Rodriguez on 01-13-2024 pH (U) 5.5 [pH] 5.0-9.0 [facility] CBC AND AUTO DIFFon 01-08-20 ABSOLUTE BASOPHIL 0.1 X10E9/L Normal 0.0-0.2 [place] Comment on above: Performed By: #### C LUDMILA, 20481-3, 29139-8, CMP #### [facility] ([id number]) [address] [place] [address] 32145 ABSOLUTE NEUTROPHIL 5.7 X10E9/L Normal 1.5-6.6 [facility] Comment on above: Performed By: #### C LUDMILA, 08921-0, 67713-6, CMP #### [facility] ([id number]) [address] [place] [address] 52613 Basophils/100 WBC (Bld) 0.6 % Normal P [facility] Comment on above: Performed By: #### C LUDMILA, 40599-3, 25089-2, CMP #### [facility] ([id number]) [address] [place] [address] 64048 Eosinophils (Bld) [#/Vol] 0.3 10*3/uL Normal 0.0-0.4 [facility] Comment on above: Performed By: #### Dread KEYS, 66194-4, 82700-3, CMP #### [facility] ([id number]) [address] [place] [address] 00086 Eosinophils/100 WBC (Bld) 3.5 % Normal [facility] Comment on above: Performed By: #### Dread KEYS, 17661-7, 37348-8, CMP #### [facility] ([id number]) [address] [place] [address] 22355 Erythrocyte distribution width (RBC) [Ratio] 12.4 % Normal 11.5-15.0 [facility] Comment on above: Performed By: #### Dread KEYS, 28182-2, 56024-5, CMP #### [facility] ([id number]) [address] [place] [address] 32746 Hematocrit (Bld) [Volume fraction] 28.6 % Low 39-49 [facility] Comment on above: Performed By: #### Dread KEYS, 30073-1, 19367-9, CMP #### [facility] ([id number]) [address] [place] [address] 30499 Hemoglobin (Bld) [Mass/Vol] 10.2 g/dL Low 13.0-17.0 [facility] Comment on above: Performed By: #### Dread KEYS, 58209-4, 29203-3, CMP #### [facility] ([id number]) [address] [place] [address] 61971 Lymphocytes (Bld) [#/Vol] 1.8 10*3/uL Normal 1.0-3.5 [facility] Comment on above: Performed By: #### Dread KEYS, 56060-7, 43170-1, CMP #### [facility] ([id number]) [address] [place] [address] 51702 Lymphocytes/100 WBC (Bld) 21.4 % Normal [facility] Comment on above: Performed By: #### Dread KEYS, 53900-7, 77906-0, CMP #### [facility] ([id number]) [address] [place] [address] 46038 MCH (RBC) [Entitic mass] 33.1 pg Normal 27-34 [facility] Comment on above: Performed By: #### Dread KEYS, 52926-7, 44847-5, CMP #### [facility] ([id number]) [address] [place] [address] 59142 MCHC (RBC) [Mass/Vol] 35.6 g/dL Normal 32-36 [facility] Comment on above: Performed By: #### Dread KEYS, 21821-4, 56541-9, CMP #### [facility] ([id number]) [address] [place] [address] 29965 MCV (RBC) [Entitic vol] 93 fL Normal 80-100 [facility] Comment on above: Performed By: #### Dread KEYS, 30146-4, 65182-5, CMP #### [facility] ([id number]) [address] [place] [address] 54699 Monocytes (Bld) [#/Vol] 0.5 10*3/uL Normal 0-0.9 [facility] Comment on above: Performed By: #### Dread KEYS, 77799-5, 38480-2, CMP #### [facility] ([id number]) [address] [place] [address] 45077 Monocytes/100 WBC (Bld) 6.1 % Normal P [facility] Comment on above: Performed By: #### Dread KEYS, 20839-4, 17219-8, CMP #### [facility] ([id number]) [address] [place] [address] 61032 Neutrophils/100 WBC (Bld) 68.4 % Normal [facility] Comment on above: Performed By: #### Dread KEYS, 75018-7, 20530-6, CMP #### [facility] ([id number]) [address] [place] [address] 67325 Platelet mean volume (Bld) [Entitic vol] 10.1 fL Normal 7-12 [facility] Comment on above: Performed By: #### Dread KEYS, 53016-1, 63790-1, CMP #### [facility] ([id number]) [address] [place] [address] 86205 Platelets (Bld) [#/Vol] 185 10*3/uL Normal 150-450 [facility] Comment on above: Performed By: #### Dread KEYS, 41732-0, 05642-4, CMP #### [facility] ([id number]) [address] [place] [address] 16584 RBC COUNT 3.07 X10E12/L Low 4.10-5.70 [facility] Comment on above: Performed By: #### Dread KEYS, 84949-8, 32084-3, CMP #### [facility] ([id number]) [address] [place] [address] 78394 WBC (Bld) [#/Vol] 8.3 10*3/uL Normal 4.0-11.0 [place] Comment on above: Performed By: #### Dread KEYS, 30438-9, 91777-6, CMP #### [facility] ([id number]) [address] [place] [address] 69037 COMPREHENSIVE METABOLIC PANE Marcos 01-08-2024 Albumin [Mass/Vol] 3.3 g/dL Normal 3.2-5.3 [place] Comment on above: Performed By: #### C LUDMILA, 00233-8, 47179-1, CMP #### [facility] ([id number]) [address] [place] [address] 05692 ALP [Catalytic activity/Vol] 81 U/L Normal 39-130 [facility] Comment on above: Performed By: #### C LUDMILA, 78267-5, 34055-3, CMP #### [facility] ([id number]) [address] [place] [address] 43048 ALT [Catalytic activity/Vol] 16 U/L Normal 0-40 [facility] Comment on above: Performed By: #### Dread KEYS, 44540-4, 11544-6, CMP #### [facility] ([id number]) [address] [place] [address] 25481 Anion gap [Moles/Vol] 7 mmol/L Normal 5-15 [facility] Comment on above: Performed By: #### Dread KEYS, 44189-9, 70447-9, CMP #### [facility] ([id number]) [address] [place] [address] 37937 AST [Catalytic activity/Vol] 18 U/L Normal 0-41 [facility] Comment on above: Performed By: #### C LUDMILA, 67981-9, 12198-3, CMP #### [facility] ([id number]) [address] [place] [address] 79385 Bilirubin [Mass/Vol] 0.4 mg/dL Normal 0.3-1.2 [facility] Comment on above: Performed By: #### C BCA, 36237-6, 97585-6, CMP #### [facility] ([id number]) [address] [place] [address] 10448 Calcium [Mass/Vol] 9.3 mg/dL Normal 8.5-10.5 [place] Comment on above: Performed By: #### C BCA, 40670-5, 62965-7, CMP #### [facility] ([id number]) [address] [place] [address] 00981 Chloride [Moles/Vol] 100 mmol/L Normal 98-109 [facility] Comment on above: Performed By: #### C BCA, 10341-9, 77093-4, CMP #### [facility] ([id number]) [address] [place] [address] 19518 CO2 [Moles/Vol] 25 mmol/L Normal 22-32 [facility] Comment on above: Performed By: #### C BCA, 75510-5, 13240-3, CMP #### [facility] ([id number]) [address] [place] [address] 26500 Creatinine [Mass/Vol] 2.69 mg/dL High 0.70-1.20 [facility] Comment on above: Result Comment: METH OD TRACEABLE TO IDMS STANDARD Performed By: #### C LUDMILA, 08759-3, 41461-1, CMP #### [facility] ([id number]) [address] [place] [address] 47589 GFR/1.73 sq M.predicted among non-blacks MDRD (S/P/Bld) [Vol rate/Area] 28 mL/min/{1.73_m2} Low >59 [facility] Comment on above: Result Comment: Reported eGFR is based on the CKD-EPI 2021 equation that does not use a race coefficient. Performed By: #### C BCA, 77188-1, 34887-5, CMP #### [facility] ([id number]) [address] [place] [address] 90575 Glucose [Mass/Vol] 86 mg/dL Normal 65-99 [place] Comment on above: Performed By: #### Dread BCA, 09569-9, 11886-3, CMP #### [facility] ([id number]) [address] [place] [address] 87039 Potassium [Moles/Vol] 4.4 mmol/L Normal 3.5-5.0 [facility] Comment on above: Performed By: #### Dread KEYS, 47727-2, 29669-1, CMP #### [facility] ([id number]) [address] [place] [address] 65788 Protein [Mass/Vol] 5.9 g/dL Low 6.0-8.0 [place] Comment on above: Performed By: #### Dread KEYS, 44199-3, 06507-7, CMP #### [facility] ([id number]) [address] [place] [address] 38788 Sodium [Moles/Vol] 132 mmol/L Low 134-146 [place] Comment on above: Performed By: #### Dread KEYS, 10522-4, 02349-6, CMP #### [facility] ([id number]) [address] [place] [address] 80283 Urea nitrogen [Mass/Vol] 68 mg/dL High 5-23 [facility] Comment on above: Performed By: #### Dread KEYS, 47057-4, 47524-1, CMP #### [facility] ([id number]) [address] [place] [address] 60935 Glucose Glucometer (BldC) [M ass/Vol]on 01-08-2024 Glucose [Mass/Vol] 300 mg/dL High 65-99 [place] Glucose [Mass/Vol] 125 mg/dL High 65-99 [place] MAGNESIUMon 01-08-2024 Magnesium [Mass/Vol] 2.0 mg/dL Normal 1.8-2.6 [facility] Comment on above: Performed By: #### Dread BCA, 29432-5, 06893-9, CMP #### [facility] ([id number]) [address] [place] [address] 30079 TROPONIN Ion 01-08-2024 Troponin I.cardiac [Mass/Vol] 0.01 ng/mL Normal 0.00-0.04 [facility] Comment on above: Performed By: #### Dread KEYS, 95315-8, 58929-3, CMP #### [facility] ([id number]) [address] [place] [address] 60992 Troponin I.cardiac [Mass/Vol] 0.02 ng/mL Normal 0.00-0.04 [facility] Comment on above: Performed By: #### Dread KEYS, 55740-3, 89575-0, CMP #### [facility] ([id number]) [address] [place] [address] 97888 CBC AND AUTO DIFFon 01-07-20 ABSOLUTE BASOPHIL 0.0 X10E9/L Normal 0.0-0.2 [place] Comment on above: Performed By: #### Dread KEYS, 36817-4, 78780-7, CMP #### [facility] ([id number]) [address] [place] [address] 83410 ABSOLUTE NEUTROPHIL 4.9 X10E9/L Normal 1.5-6.6 [facility] Comment on above: Performed By: #### Dread KEYS, 74455-7, 94609-6, CMP #### [facility] ([id number]) [address] [place] [address] 49665 Basophils/100 WBC (Bld) 0.6 % Normal [facility] Comment on above: Performed By: #### Dread KEYS, 29519-3, 63282-2, CMP #### [facility] ([id number]) [address] [place] [address] 41574 Eosinophils (Bld) [#/Vol] 0.3 10*3/uL Normal 0.0-0.4 [facility] Comment on above: Performed By: #### Dread KEYS, 60810-4, 63471-5, CMP #### [facility] ([id number]) [address] [place] [address] 42306 Eosinophils/100 WBC (Bld) 4.3 % Normal [facility] Comment on above: Performed By: #### Dread KEYS, 17490-6, 03338-3, CMP #### [facility] ([id number]) [address] [place] [address] 86717 Erythrocyte distribution width (RBC) [Ratio] 12.5 % Normal 11.5-15.0 [facility] Comment on above: Performed By: #### Dread KEYS, 55624-8, 40963-3, CMP #### [facility] ([id number]) [address] [place] [address] 69069 Hematocrit (Bld) [Volume fraction] 31.2 % Low 39-49 [facility] Comment on above: Performed By: #### Dread EKYS, 02234-1, 70483-4, CMP #### [facility] ([id number]) [address] [place] [address] 49843 Hemoglobin (Bld) [Mass/Vol] 11.2 g/dL Low 13.0-17.0 [facility] Comment on above: Performed By: #### Dread KEYS, 40717-8, 08881-0, CMP #### [facility] ([id number]) [address] [place] [address] 97094 Lymphocytes (Bld) [#/Vol] 1.3 10*3/uL Normal 1.0-3.5 [facility] Comment on above: Performed By: #### Dread KEYS, 45697-9, 53682-2, CMP #### [facility] ([id number]) [address] [place] [address] 56346 Lymphocytes/100 WBC (Bld) 18.6 % Normal [facility] Comment on above: Performed By: #### Dread KEYS, 77285-2, 11255-3, CMP #### [facility] ([id number]) [address] [place] [address] 17123 MCH (RBC) [Entitic mass] 33.0 pg Normal 27-34 [facility] Comment on above: Performed By: #### Dread KEYS, 93553-5, 77468-5, CMP #### [facility] ([id number]) [address] [place] [address] 87447 MCHC (RBC) [Mass/Vol] 35.8 g/dL Normal 32-36 [facility] Comment on above: Performed By: #### Dread KEYS, 68157-0, 86724-2, CMP #### [facility] ([id number]) [address] [place] [address] 05619 MCV (RBC) [Entitic vol] 92 fL Normal 80-100 [facility] Comment on above: Performed By: #### Dread KEYS, 64154-9, 44209-5, CMP #### [facility] ([id number]) [address] [place] [address] [phone] Monocytes (Bld) [#/Vol] 0.5 10*3/uL Normal 0-0.9 [facility] Comment on above: Performed By: #### Dread KEYS, 54515-4, 72809-0, CMP #### [facility] ([id number]) [address] [place] [address] [phone] Monocytes/100 WBC (Bld) 6.5 % Normal [facility] Comment on above: Performed By: #### Dread KEYS, 09291-5, 99964-8, CMP #### [facility] ([id number]) [address] [place] [address] [phone] Neutrophils/100 WBC (Bld) 70.0 % Normal [facility] Comment on above: Performed By: #### Dread KEYS, 46813-9, 84132-3, CMP #### [facility] [facility] ([id number]) [address] [place] [address] 27775 Platelet mean volume (Bld) [Entitic vol] 9.6 fL Normal 7-12 [facility] Comment on above: Performed By: #### Dread KEYS, 57609-3, 86047-3, CMP #### [facility] ([id number]) [address] [place] [address] 13177 Platelets (Bld) [#/Vol] 194 10*3/uL Normal 150-450 [facility] Comment on above: Performed By: #### Dread KEYS, 32160-1, 05906-3, CMP #### [facility] ([id number]) [address] [place] [address] 87153 RBC COUNT 3.38 X10E12/L Low 4.10-5.70 [facility] Comment on above: Performed By: #### Dread KEYS, 54606-2, 49880-4, CMP #### [facility] ([id number]) [address] [place] [address] 74079 WBC (Bld) [#/Vol] 7.0 10*3/uL Normal 4.0-11.0 [place] Comment on above: Performed By: #### Dread KEYS, 37967-2, 23379-1, CMP #### [facility] ([id number]) [address] [place] [address] 08055 COMPREHENSIVE METABOLIC PANE Marcos 01-07-2024 Albumin [Mass/Vol] 3.9 g/dL Normal 3.2-5.3 [place] Comment on above: Performed By: #### Dread KEYS, 94092-4, 67180-6, CMP #### [facility] ([id number]) [address] [place] [address] 79816 ALP [Catalytic activity/Vol] 166 U/L High 39-130 [facility] Comment on above: Performed By: #### C LUDMILA, 74795-0, 44264-2, CMP #### [facility] ([id number]) [address] [place] [address] 15043 ALT [Catalytic activity/Vol] 19 U/L Normal 0-40 [facility] Comment on above: Performed By: #### Dread KEYS, 29410-1, 86187-5, CMP #### [facility] ([id number]) [address] [place] [address] 22535 Anion gap [Moles/Vol] 4 mmol/L Low 5-15 [facility] Comment on above: Performed By: #### Dread KEYS, 05212-0, 30056-9, CMP #### [facility] ([id number]) [address] [place] [address] 08536 AST [Catalytic activity/Vol] 17 U/L Normal 0-41 [facility] Comment on above: Performed By: #### C LUDMILA, 73990-8, 21651-4, CMP #### [facility] ([id number]) [address] [place] [address] 24354 Bilirubin [Mass/Vol] 0.8 mg/dL Normal 0.3-1.2 [facility] Comment on above: Performed By: #### Dread KEYS, 04727-7, 99011-1, CMP #### [facility] ([id number]) [address] [place] [address] 08022 Calcium [Mass/Vol] 9.8 mg/dL Normal 8.5-10.5 [place] Comment on above: Performed By: #### C BCA, 51140-5, 70896-3, CMP #### [facility] ([id number]) [address] [place] [address] 67920 Chloride [Moles/Vol] 98 mmol/L Normal 98-109 [facility] Comment on above: Performed By: #### C BCA, 55101-6, 67467-5, CMP #### [facility] ([id number]) [address] [place] [address] 41419 CO2 [Moles/Vol] 25 mmol/L Normal 22-32 [facility] Comment on above: Performed By: #### C BCA, 16138-4, 41758-2, CMP #### [facility] ([id number]) [address] [place] [address] 87192 Creatinine [Mass/Vol] 2.39 mg/dL High 0.70-1.20 [facility] Comment on above: Result Comment: METH OD TRACEABLE TO IDMS STANDARD Performed By: #### C LUDMILA, 23035-6, 96615-8, CMP #### [facility] ([id number]) [address] [place] [address] 29578 GFR/1.73 sq M.predicted among non-blacks MDRD (S/P/Bld) [Vol rate/Area] 32 mL/min/{1.73_m2} Low >59 [facility] Comment on above: Result Comment: Reported eGFR is based on the CKD-EPI 1 equation that does not use a race coefficient. Performed By: #### C LUDMILA, 22219-2, 09312-3, CMP #### [facility] ([id number]) [address] [place] [address] 33104 Glucose [Mass/Vol] 409 mg/dL Critically high 65-99 [facility] Comment on above: Performed By: #### C BCA, 47954-6, 50801-5, CMP #### [facility] ([id number]) [address] [place] [address] 72838 Potassium [Moles/Vol] 5.1 mmol/L High 3.5-5.0 [facility] Comment on above: Performed By: #### C BCA, 82575-8, 56867-5, CMP #### [facility] ([id number]) [address] [place] [address] 21163 Protein [Mass/Vol] 6.9 g/dL Normal 6.0-8.0 [place] Comment on above: Performed By: #### C BCA, 43882-4, 52794-4, CMP #### [facility] ([id number]) [address] [place] [address] 73036 Sodium [Moles/Vol] 127 mmol/L Low 134-146 [place] Comment on above: Performed By: #### C BCA, 13191-6, 14918-3, CMP #### [facility] ([id number]) [address] [place] [address] 65894 Urea nitrogen [Mass/Vol] 60 mg/dL High 5-23 [facility] Comment on above: Performed By: #### C BCA, 35394-2, 38221-2, CMP #### [facility] ([id number]) [address] [place] [address] 51908 Fibrin D-dimer DDU (PPP) [Ma ss/Vol]on 01-07-2024 D DIMER <150 Normal <255 [facility] Comment on above: Result Comment: Results <255 ng/mL DDU: The presence of a VTE can safely be excluded with a negative D-Dimer result and Wells score. A negative result doesn't exclude the possibility of DIC. The test be repeated along with other diagnostic tests if the patient's symptoms persist or worsen. [email or web address] Performed By: #### 4 8066-5 #### [facility] ([id number]) [address] [place] [address] 19935 Glucose Glucometer (BldC) [M ass/Vol]on 01-07-2024 Glucose [Mass/Vol] 290 mg/dL High 65-99 [place] Glucose [Mass/Vol] 325 mg/dL High 65-99 [place] Glucose [Mass/Vol] 382 mg/dL High 65-99 [place] Natriuretic peptide B [Mass/ Vol]on 01-07-2024 Natriuretic peptide B (Bld) [Mass/Vol] 206 pg/mL High <100.0 [facility] Comment on above: Performed By: #### C BCA, 04204-3, 17452-8, [facility] #### [facility] ([id number]) [address] [facility] [place] [address] SARS/FLU A+B/RSV by NAAT/Mol ecularon 01-07-2024 SARS/FLU A+B/RSV by NAAT/Molecular FLU A PCR Negative (qualifier value) FLU B PCR Negative (qualifier value) RSV by PCR Negative (qualifier value) SARS CoV 2 Not detected (qualifier value) NOTE The Xpert Xpress SARS-CoV-2/Flu/RSV Plus test is a rapid, multiplexed real-time RT-PCR test intended for the simultaneous qualitative detection and differentiation of SARS-CoV-2, influenza A, influenza B and respiratory syncytial virus (RSV) viral RNA from individuals suspected of respiratory viral infection consistent with COVID-19 by their healthcare provider. This test has not been validated in asymptomatic patients. The Xpert Xpress SARS-CoV-2 test is intended for use by qualified and trained operators who are performing tests using either [employer] or [employer] systems and is limited to laboratories that meet the CLIA requirements to perform high and moderate complexity tests. The Xpert Xpress SARS-CoV-2/Flu/RSV Plus is only for use under the Food and Drug Administration's Emergency Use Authorization. Results are for the simultaneous detection and differentiation of SARS-CoV-2, influenza A, influenza B and RSV nucleic acids in clinical specimens. SARS-CoV-2, influenza A, influenza B and RSV RNA identified by this test are generally detectable in upper respiratory samples during the acute phase of infection. Positive results are indicative of the presence of the identified virus, but do not rule out bacterial infection or co-infection with other pathogens not detected by this test. Clinical correlation with patient history and other diagnostic information is necessary to determine patient infection status. The agent detected may not be the definite cause of disease. Negative results do not preclude SARS-CoV-2, influenza A, influenza B and RSV infection and should not be used as the sole basis for treatment or other patient management decisions. Negative results must be combined with clinical observations, patient history and epidemiological information. An Invalid result may occur with specimen-associated inhibition unable to be resolved with specimen repeat. Fact Sheet for Healthcare Providers: https://www.fda.gov/medi a/760182/download Fact Sheet for Patients: https://www.fda.gov/medi a/161089/download Normal [facility] Comment on above: Performed By: #### C OVFLR #### [facility] ([id number]) [address] [place] [address] 50546 TROPONIN Ion 01-07-2024 Troponin I.cardiac [Mass/Vol] 0.02 ng/mL Normal 0.00-0.04 [facility] Comment on above: Performed By: #### 1 0839-9 #### [facility] ([id number]) [address] [place] [address] 24882 Troponin I.cardiac [Mass/Vol] 0.03 ng/mL Normal 0.00-0.04 [facility] Comment on above: Performed By: #### C BCA, 56511-0, 60379-7, CMP #### [facility] ([id number]) [address] [place] [address] 37452 XR CHEST 1 VWon 01-07-2024 XR CHEST 1 VW XR CHEST 1 VW History: [Shortness of breath] Frontal chest radiograph demonstrates that the heart mediastinum and franco [and lungs are stable since 06/03/2023. There is no significant pulmonary parenchymal abnormality or large pleural effusion.] Impression: [No acute chest disease and no significant change since 06/03/2023.] Finalized by Vj Good MD on 01/07/2024 1:57 PM Normal [facility] Progress Noteson 01-01-2024 Elementary Math Tutor Authentication Interface Message Text Longstanding PDR OU, DME, mac ischemia OU Sp PRP OU, Repeated injections - last 10/2022, 06/2023, 09/11/23 (OS only) Did not notice any real improvement with injections PRP fill in OU 12/2022 No real change since last visit 11/06/23 Some dyer tint OS A/P 1. DM type 2 with PDR [...] today as VH continues to clear, thin, min fluid - still with persistent VH - wants to proceed with PPV OS - r/b/a d/w pt - agreeable - not clear if his vision will improve, but less floaters and dark spots for sure 2. Amaurosis fugax OU - Reported ~08/2020 with transient vision loss episodes but now resolved as of 10/2020, = no new episodes recently - 12/2019 MRA neck no ICA stenosis - GCA symptoms NAYAK, jaw mikaela, F/C negative today - rec go to ED if symptoms recur, discussed importance that he is not having another stroke Dilate OU OCT mac OU Normal [facility] [employer] [facility] XR ABDOMEN COMP DECUB ERECTo n 12-12-2023 XR ABDOMEN COMP DECUB ERECT XR ABDOMEN COMP DECUB ERECT CLINICAL HISTORY: [Nausea and vomiting constipation Comparison: None Views: 2 view FINDINGS: * No acute infiltrate. No volume loss nor consolidation. There is no pleural effusion, pneumothorax, nor volume loss. Heart and mediastinal structures are unremarkable. Pulmonary vasculature stable. * Nonobstructive bowel gas pattern * No free air * No suspicious calcification * No definite organomegaly * Large amount retained fecal content probably due to constipation. * Degenerative spurring of the lumbar spine IMPRESSION: * Unremarkable chest and abdomen series Finalized by Bonifacio Dickey MD on 12/12/2023 2:58 PM Normal [facility] XR Abdomen upright and left lateral decubituson 12-12-2023 CLINICAL HISTORY: [Nausea and vomiting constipation Comparison: None Views: 2 view FINDINGS: * No acute infiltrate. No volume loss nor consolidation. There is no pleural effusion, pneumothorax, nor volume loss. Heart and mediastinal structures are unremarkable. Pulmonary vasculature stable. * Nonobstructive bowel gas pattern * No free air * No suspicious calcification * No definite organomegaly * Large amount retained fecal content probably due to constipation. * Degenerative spurring of the lumbar spine IMPRESSION: * Unremarkable chest and abdomen series Finalized by Bonifacio Dickey MD on 12/12/2023 2:58 PM [facility] Bonifacio Dickey MD - 12/12/2023 CLINICAL HISTORY: [Nausea and vomiting constipation Comparison: None Views: 2 view FINDINGS: * No acute infiltrate. No volume loss nor consolidation. There is no pleural effusion, pneumothorax, nor volume loss. Heart and mediastinal structures are unremarkable. Pulmonary vasculature stable. * Nonobstructive bowel gas pattern * No free air * No suspicious calcification * No definite organomegaly * Large amount retained fecal content probably due to constipation. * Degenerative spurring of the lumbar spine IMPRESSION: * Unremarkable chest and abdomen series Finalized by Bonifacio Dickey MD on 12/12/2023 2:58 PM [facility] Radiology Study observation (narrative) [facility] XR Abdomen upright and left lateral decubitusOrdered By: Bonifacio Dickey on 12-12-2023 [facility] Work Phone: Outside Recordson 12-05-2023 Outside Records [id number]#1.00OTGT IFF Normal [facility] Patient Letteron 12-05-2023 Patient Letter [id number]#1.00OTG TIFF Normal [facility] Lab - Other Lab Resultson Lab - Other Lab Results [id number]#1.00OT [facility] Lab - Other Lab Results [id number]#1.00OT [facility] Outside Recordson 12-04-2023 Outside Records [id number]#2.00OT [facility] Outside Records [id number]#1.00OT [facility] Outside Records [id number]#1.00OT [facility] Outside Records [id number]#1.00OT [facility] Rad - Other Radiology Report on 12-04-2023 Rad - Other Radiology Report [id number]#1.00OT [facility] Rad - Other Radiology Report [id number]#1.00OT [facility] Progress Noteson 11-06-2023 Elementary Math Tutor Authentication Interface Message Text Longstanding PDR OU, [...] Dilate OU OCT mac OU Normal [facility] Left eye Ophthalmologic hilary tmenton 09-11-2023 Time Out The date was 09/11/2023. The time was 4:54 PM. Confirmed correct patient, procedure, site, and patient consented. Anesthesia Subconjunctival anesthesia was used. Anesthetic medications included Lidocaine 2%. Procedure Preparation included 5% betadine to ocular surface. A 30 gauge needle was used. Injection Medications: 1.25 mg bevacizumab 1.25MG/0.05 mL Route: Intravitreal Lot: [id number], Expiration date: 09/11/2023 Post-op Post injection exam found visual acuity of at least counting fingers. The patient tolerated the procedure well. There were no complications. Post injection medications were not given. Notes [facility] Radiology Study observation (narrative) [facility] Progress Noteson 09-11-2023 Elementary Math Tutor Authentication Interface Message Text Longstanding PDR OU, [...] Dilate OU OCT mac OU Normal [facility] Study observation Right reti na by OCTon 09-11-2023 Right Eye Quality was good. Scan locations included subfoveal. Left Eye Quality was good. Scan locations included subfoveal. Notes OD: stable, thin, no fluid OS: improving view, thin, no fluid [facility] Radiology Study observation (narrative) [facility] Blood Cultureon 08-07-2023 Bacteria identified Cx Nom (Bld) ---- Blood Culture: NG5^NO GROWTH. NG5^Time of report was 120 hours. Normal [facility] Comment on above: Order Comment: Speci men Type: Unknown Relevant Clinical Information: Altered mental status, hypoglycemia, hypothermia Ordering Facility: [facility] Lab-CLIA#[id number] Address: [address] [place] [address] Performed By: #### M Deacon, CMP #### [facility] Lab-CLIA#[id number] CLIA [id number] [address] [place] [address] Phil Franklin DO,FCAP Absolute lymphocyte countOrd ered By: Helen Jovel on 08-03-2023 Lymphocytes Auto (Unsp spec) [#/Vol] 1.26 10*3/uL 0.80-3.30 [facility] Comment on above: Delta: 0.92 on 08/02 Basophils Auto (Bld) [#/Vol] Ordered By: Helen Jovel on 08-03-2023 Basophils (Bld) [#/Vol] 0.03 10*3/uL 0.00-0.10 [facility] Basophils/100 WBC Auto (Bld) Ordered By: Helen Jovel on 08-03-2023 Basophils/100 WBC (Bld) 0.3 % 0.0-1.3 [facility] Blood hemoglobin measurement (mass/volume)Ordered By: Helen Jovel on 08-03-2023 Hemoglobin (Bld) [Mass/Vol] 11.7 g/dL 13.5-17.7 [facility] Comment on above: Delta: 14.0 on 08/02 CBC w/ Auto Diffon Basophils Absolute Auto 0.03 10*3/uL Normal 0.00-0.10 [facility] Comment on above: Order Comment: Speci men Type: Unknown Relevant Clinical Information: Altered mental status, hypoglycemia, hypothermia Ordering Facility: [facility] Address: , , Performed By: #### G LUCOMETER #### [facility] Basophils/100 WBC (Bld) 0.3 % Normal 0.0-1.3 [facility] Comment on above: Order Comment: Speci men Type: Unknown Relevant Clinical Information: Altered mental status, hypoglycemia, hypothermia Ordering Facility: [facility] Address: , , Performed By: #### G LUCOMETER #### [facility] Eosinophils (Bld) [#/Vol] 0.31 10*3/uL Normal 0.00-0.50 [facility] Comment on above: Order Comment: Speci men Type: Unknown Relevant Clinical Information: Altered mental status, hypoglycemia, hypothermia Ordering Facility: [facility] Address: , , Performed By: #### G LUCOMETER #### [facility] Eosinophils/100 WBC (Bld) 3.0 % Normal 0.0-5.8 [facility] Comment on above: Order Comment: Speci men Type: Unknown Relevant Clinical Information: Altered mental status, hypoglycemia, hypothermia Ordering Facility: [facility] Address: , , Performed By: #### G LUCOMETER #### [facility] Erythrocyte distribution width (RBC) [Ratio] 13.2 % Normal 11.6-14.8 [facility] Comment on above: Order Comment: Speci men Type: Unknown Relevant Clinical Information: Altered mental status, hypoglycemia, hypothermia Ordering Facility: [facility] Address: , , Performed By: #### G LUCOMETER #### [facility] Hematocrit (Bld) [Volume fraction] 34.3 % Low 41.0-53.0 [facility] Comment on above: Order Comment: Speci men Type: Unknown Relevant Clinical Information: Altered mental status, hypoglycemia, hypothermia Ordering Facility: [facility] Address: , , Performed By: #### G LUCOMETER #### [facility] Hemoglobin (Bld) [Mass/Vol] 11.7 g/dL Low 13.5-17.7 [facility] Comment on above: Order Comment: Speci men Type: Unknown Relevant Clinical Information: Altered mental status, hypoglycemia, hypothermia Ordering Facility: [facility] Address: , , Performed By: #### G LUCOMETER #### [facility] Lymphocytes (Bld) [#/Vol] 1.26 10*3/uL Normal 0.80-3.30 [facility] Comment on above: Order Comment: Speci men Type: Unknown Relevant Clinical Information: Altered mental status, hypoglycemia, hypothermia Ordering Facility: [facility] Address: , , Performed By: #### G LUCOMETER #### [facility] Lymphocytes/100 WBC (Bld) 12.2 % Low 13.4-45.1 [facility] Comment on above: Order Comment: Speci men Type: Unknown Relevant Clinical Information: Altered mental status, hypoglycemia, hypothermia Ordering Facility: [facility] Address: , , Performed By: #### G LUCOMETER #### [facility] MCH (RBC) [Entitic mass] 31.5 pg Normal 27.2-33.0 [facility] Comment on above: Order Comment: Speci men Type: Unknown Relevant Clinical Information: Altered mental status, hypoglycemia, hypothermia Ordering Facility: [facility] Address: , , Performed By: #### G LUCOMETER #### [facility] MCHC (RBC) [Mass/Vol] 34.1 g/dL Normal 31.9-35.[address] [facility] Comment on above: Order Comment: Speci men Type: Unknown Relevant Clinical Information: Altered mental status, hypoglycemia, hypothermia Ordering Facility: [facility] Address: , , Performed By: #### G LUCOMETER #### [facility] MCV (RBC) [Entitic vol] 92.5 fL Normal 81.7-97.1 [facility] Comment on above: Order Comment: Speci men Type: Unknown Relevant Clinical Information: Altered mental status, hypoglycemia, hypothermia Ordering Facility: [facility] Address: , , Performed By: #### G LUCOMETER #### [facility] Monocytes (Bld) [#/Vol] 0.77 10*3/uL Normal 0.30-0.90 [facility] Comment on above: Order Comment: Speci men Type: Unknown Relevant Clinical Information: Altered mental status, hypoglycemia, hypothermia Ordering Facility: [facility] Address: , , Performed By: #### G LUCOMETER #### [facility] Monocytes/100 WBC (Bld) 7.5 % Normal 4.0-12.7 [facility] Comment on above: Order Comment: Speci men Type: Unknown Relevant Clinical Information: Altered mental status, hypoglycemia, hypothermia Ordering Facility: [facility] Address: , , Performed By: #### G LUCOMETER #### [facility] Neutrophils Absolute Auto 7.89 10*3/uL High 1.70-7.00 [facility] Comment on above: Order Comment: Speci men Type: Unknown Relevant Clinical Information: Altered mental status, hypoglycemia, hypothermia Ordering Facility: [facility] Address: , , Performed By: #### G LUCOMETER #### [facility] Neutrophils/100 WBC (Bld) 76.6 % High 41.1-75.9 [facility] Comment on above: Order Comment: Speci men Type: Unknown Relevant Clinical Information: Altered mental status, hypoglycemia, hypothermia Ordering Facility: [facility] Address: , , Performed By: #### G LUCOMETER #### [facility] Platelet mean volume (Bld) [Entitic vol] 11.3 fL Normal 8.6-12.2 [facility] Comment on above: Order Comment: Speci men Type: Unknown Relevant Clinical Information: Altered mental status, hypoglycemia, hypothermia Ordering Facility: [facility] Address: , , Performed By: #### G LUCOMETER #### [facility] Platelets (Bld) [#/Vol] 220 10*3/uL Normal 133-425 [facility] Comment on above: Order Comment: Speci men Type: Unknown Relevant Clinical Information: Altered mental status, hypoglycemia, hypothermia Ordering Facility: [facility] Address: , , Performed By: #### G LUCOMETER #### [facility] RBC (Bld) [#/Vol] 3.71 10*6/uL Low 3.90-5.90 [facility] Comment on above: Order Comment: Speci men Type: Unknown Relevant Clinical Information: Altered mental status, hypoglycemia, hypothermia Ordering Facility: [facility] Address: , , Performed By: #### G LUCOMETER #### [facility] WBC (Bld) [#/Vol] 10.3 10*3/uL Normal 4.5-11.0 [facility] Comment on above: Order Comment: Speci men Type: Unknown Relevant Clinical Information: Altered mental status, hypoglycemia, hypothermia Ordering Facility: [facility] Address: , , Performed By: #### G LUCOMETER #### [facility] Comprehensive Metabolic Pane marcos 08-03-2023 Albumin [Mass/Vol] 2.9 g/dL Low 3.4-5.0 [facility] Comment on above: Order Comment: Speci men Type: Unknown Relevant Clinical Information: Altered mental status, hypoglycemia, hypothermia Ordering Facility: [facility] Lab-CLIA#[id number] Address: [address] [place] [address] Performed By: #### M Deacon, CMP #### [facility] Lab-CLIA#[id number] CLIA [id number] [address] [place] [address] Phil Franklin DO, FCAP ALP [Catalytic activity/Vol] 100 U/L Normal 46-116 [facility] Comment on above: Order Comment: Speci men Type: Unknown Relevant Clinical Information: Altered mental status, hypoglycemia, hypothermia Ordering Facility: [facility] Lab-CLIA#[id number] Address: [address] [place] [address] Performed By: #### Aislinn Worthy, CMP #### [facility]#[id number] CLIA [id number] [address] [place] [address] Vincent Randaisi, DO,FCAP ALT [Catalytic activity/Vol] 16 U/L Normal 10-49 [facility] Comment on above: Order Comment: Speci men Type: Unknown Relevant Clinical Information: Altered mental status, hypoglycemia, hypothermia Ordering Facility: [facility]#[id number] Address: [address] [place], [place] [id number] Performed By: #### Aislinn Worthy, CMP #### [facility]#[id number] CLIA [id number] [address] [place], [place] [id number] Vincent Randaisi, DO,FCAP Anion gap [Moles/Vol] 12 mmol/L Normal 7-[address] [facility] Comment on above: Order Comment: Speci men Type: Unknown Relevant Clinical Information: Altered mental status, hypoglycemia, hypothermia Ordering Facility: [facility]#[id number] Address: [address] [place], [place] [id number] Performed By: #### Aislinn Worthy, CMP #### [facility]#[id number] CLIA [id number] [address] [place] [address] Vincent Randaisi, DO,FCAP AST [Catalytic activity/Vol] 16 U/L Normal <34 [facility] Comment on above: Order Comment: Speci men Type: Unknown Relevant Clinical Information: Altered mental status, hypoglycemia, hypothermia Ordering Facility: [facility]#[id number] Address: [address] [place], [place] [id number] Performed By: #### Aislinn Worthy, CMP #### [facility]#[id number] CLIA [id number] [address] [place] [address] Vincent Randaisi, DO,FCAP Bilirubin [Mass/Vol] 0.3 mg/dL Normal 0.3-1.2 [facility] Comment on above: Order Comment: Speci men Type: Unknown Relevant Clinical Information: Altered mental status, hypoglycemia, hypothermia Ordering Facility: [facility]#[id number] Address: [address] [place] [address] Performed By: #### Aislinn Worthy, CMP #### [facility]#[id number] CLIA [id number] [address] [place] [address] Phil Franklin, DO,FCAP Calcium [Mass/Vol] 8.2 mg/dL Low 8.3-10.6 [facility] Comment on above: Order Comment: Speci men Type: Unknown Relevant Clinical Information: Altered mental status, hypoglycemia, hypothermia Ordering Facility: [facility]#[id number] Address: [address] [place] [address] Performed By: #### Aislinn Worthy, CMP #### [facility]#[id number] CLIA [id number] [address] [place] [address] Phil Dialsi, DO,FCAP Chloride [Moles/Vol] 111 mmol/L High 98-107 [facility] Comment on above: Order Comment: Speci men Type: Unknown Relevant Clinical Information: Altered mental status, hypoglycemia, hypothermia Ordering Facility: [facility]#[id number] Address: [address] [place] [address] Performed By: #### Aislinn Worthy, CMP #### [facility]#[id number] CLIA [id number] [address] [place] [address] Phil Dialsi, DO,FCAP CO2 [Moles/Vol] 22 mmol/L Normal 20-31 [facility] Comment on above: Order Comment: Speci men Type: Unknown Relevant Clinical Information: Altered mental status, hypoglycemia, hypothermia Ordering Facility: [facility]#[id number] Address: [address] [place] [address] Performed By: #### Aislinn Worthy, CMP #### [facility]#[id number] CLIA [id number] [address] [place] [address] Phil Franklin DO,FCAP Creatinine [Mass/Vol] 2.348 mg/dL High 0.70-1.30 So [facility] Comment on above: Order Comment: Speci men Type: Unknown Relevant Clinical Information: Altered mental status, hypoglycemia, hypothermia Ordering Facility: [facility]#[id number] Address: [address] [place] [address] Performed By: #### M G, CMP #### [facility]#[id number] CLIA [id number] [address] [place] [address] Phil Franklin DO,FCAP Creatinine [facility] [address] [place] [address] Comment on above: Order Comment: Speci men Type: Unknown Relevant Clinical Information: Altered mental status, hypoglycemia, hypothermia Ordering Facility: [facility]#[id number] Address: [address] [place] [address] Performed By: #### Aislinn Worthy, CMP #### [facility]#[id number] CLIA [id number] [address] [place] [address] Phil Franklin DO,FCAP GFR/1.73 sq M.predicted MDRD (S/P/Bld) [Vol rate/Area] 31 mL/min/{1.73_m2} [facility] Comment on above: Order Comment: Speci men Type: Unknown Relevant Clinical Information: Altered mental status, hypoglycemia, hypothermia Ordering Facility: [facility]#[id number] Address: [address] [place] [address] Result Comment: K/DO QI Guideline: Stage 1 [...] Performed By: #### Aislinn Worthy, CMP #### [facility]#[id number] CLIA [id number] [address] [place] [address] Phil Franklin DO,FCAP Glucose [Mass/Vol] 147 mg/dL High 74-106 Dori martínez [facility] Comment on above: Order Comment: Speci men Type: Unknown Relevant Clinical Information: Altered mental status, hypoglycemia, hypothermia Ordering Facility: [facility]#[id number] Address: [address] [place] [address] Performed By: #### Aislinn Worthy, CMP #### [facility]#[id number] CLIA [id number] [address] [place] [address] Phil Franklin DO,FCAP Potassium [Moles/Vol] 4.6 mmol/L Normal 3.5-5.1 [facility] Comment on above: Order Comment: Speci men Type: Unknown Relevant Clinical Information: Altered mental status, hypoglycemia, hypothermia Ordering Facility: [facility]#[id number] Address: [address] [place] [address] Performed By: #### Aislinn Worthy, CMP #### [facility]#[id number] CLIA [id number] [address] [place] [address] Phil Franklin DO,FCAP Protein [Mass/Vol] 5.4 g/dL Low 5.7-8.2 Dori martínez [facility] Comment on above: Order Comment: Speci men Type: Unknown Relevant Clinical Information: Altered mental status, hypoglycemia, hypothermia Ordering Facility: [facility]#[id number] Address: [address] [place] [address] Performed By: #### Aislinn Worthy, CMP #### [facility]#[id number] CLIA [id number] [address] [place] [address] Phil Franklin DO,FCAP Sodium [Moles/Vol] 140 mmol/L Normal 136-145 [facility] Comment on above: Order Comment: Speci men Type: Unknown Relevant Clinical Information: Altered mental status, hypoglycemia, hypothermia Ordering Facility: [facility]#[id number] Address: [address] [place] [address] Performed By: #### Aislinn Worthy, CMP #### [facility]#[id number] CLIA [id number] [address] [place] [address] Phil Franklin DO,FCAP Urea nitrogen [Mass/Vol] 50 mg/dL High 07-06 [facility] Comment on above: Order Comment: Speci men Type: Unknown Relevant Clinical Information: Altered mental status, hypoglycemia, hypothermia Ordering Facility: [facility]#[id number] Address: [address] [place] [address] Performed By: #### Aislinn Worthy, CMP #### [facility]#[id number] CLIA [id number] [address] [place] [address] Phil Franklin DO,FCAP Eosinophils Auto (Bld) [#/Vo l]Ordered By: Helen Jovel on 08-03-2023 Eosinophils (Bld) [#/Vol] 0.31 10*3/uL 0.00-0.50 [facility] Eosinophils/100 WBC Auto (Bl d)Ordered By: Helen Jovel on 08-03-2023 Eosinophils/100 WBC (Bld) 3.0 % 0.0-5.8 [facility] Comment on above: Delta: 2.0 on -0424 Erythrocyte distribution wid th Auto (RBC) [Ratio]Ordered By: Helen Jovel on 08-03-2023 Erythrocyte distribution width (RBC) [Ratio] 13.2 % 11.6-14.8 [facility] Glomerular filtration rate ( GFR) estimation/1.73 sq m using creatinine measurement wiOrdered By: Helen Jovel on 08-03-2023 GFR/1.73 sq M.predicted CKD-EPI (S/P/Bld) [Vol rate/Area] 31 mL/min >60 [facility] Comment on above: K/DOQI Guideline:Sta [...] [Mass/Vol] 339 mg/dL High 70-110 Dori martínez [facility] Comment on above: Order Comment: Speci men Type: Unknown Relevant Clinical Information: Altered mental status, hypoglycemia, hypothermia Ordering Facility: [facility]#[id number] Address: [address] [place] [address] Performed By: #### M Deacon, CMP #### [facility]#[id number] CLIA [id number] [address] [place] [address] Phil Franklin DO,FCAP Glucose [Mass/Vol] 165 mg/dL High 70-110 oDri martínez [facility] Comment on above: Order Comment: Speci men Type: Unknown Relevant Clinical Information: Altered mental status, hypoglycemia, hypothermia Ordering Facility: [facility] Address: , , Performed By: #### G LUCOMETER #### [facility] Glucose [Mass/Vol] 381 mg/dL High 70-110 Dori martínez [facility] Comment on above: Order Comment: Speci men Type: Unknown Relevant Clinical Information: Altered mental status, hypoglycemia, hypothermia Ordering Facility: [facility] Address: , , Performed By: #### G LUCOMETER #### [facility] Glucose Glucometer (BldC) [M ass/Vol]Ordered By: Harjeet Ruelas on 08-03-2023 Glucose [Mass/Vol] 339 mg/dL 70-110 Dori martínez [facility] Hematocrit Auto (Bld) [Volum e fraction]Ordered By: Helen Jovel on 08-03-2023 Hematocrit (Bld) [Volume fraction] 34.3 % 41.0-53.0 [facility] Laboratory - Chemistry and C hemistry - challengeOrdered By: Helen Jovel on 08-03-2023 Anion gap [Moles/Vol] 12 mmol/L 7-17 [facility] Lymphocytes/100 WBC Auto (Bl d)Ordered By: Helen Jovel on 08-03-2023 Lymphocytes/100 WBC (Bld) 12.2 % 13.4-45.1 [facility] Comment on above: Delta: 6.3 on MCH Auto (RBC) [Entitic mass ]Ordered By: Helen Jovel on 08-03-2023 MCH (RBC) [Entitic mass] 31.5 pg 27.2-33.0 [facility] MCHC Auto (RBC) [Mass/Vol]Or dered By: Helen Jovel on 08-03-2023 MCHC (RBC) [Mass/Vol] 34.1 g/dL 31.9-35.1 [facility] MCV (mean corpuscular volume ) determinationOrdered By: Helen Jovel on 08-03-2023 MCV (RBC) [Entitic vol] 92.5 fL 81.7-97.1 [facility] Comment on above: Delta: 89.8 on 08/02 Magnesiumon 08-03-2023 Magnesium [Mass/Vol] 1.9 mg/dL Normal 1.6-2.6 [facility] Comment on above: Order Comment: Speci men Type: Unknown Relevant Clinical Information: Altered mental status, hypoglycemia, hypothermia Ordering Facility: [facility]#[id number] Address: [address] [place] [address] Performed By: #### M G, CMP #### [facility]#[id number] CLIA [id number] [address] [place] [address] Phil Franklin DO,JANET Monocytes Auto (Bld) [#/Vol] Ordered By: Helen Jovel on 08-03-2023 Monocytes (Bld) [#/Vol] 0.77 10*3/uL 0.30-0.90 [facility] Comment on above: Delta: 0.50 on 08/02-4 Monocytes/100 WBC Auto (Bld) Ordered By: Helen Jovel on 08-03-2023 Monocytes/100 WBC (Bld) 7.5 % 4.0-12.7 [facility] Comment on above: Delta: 3.4 on Neutrophils Auto (Bld) [#/Vo l]Ordered By: Helen Jovel on 08-03-2023 Neutrophils (Bld) [#/Vol] 7.89 10*3/uL 1.70-7.00 [facility] Comment on above: Delta: 12.71 on 07/154 Neutrophils/100 WBC Auto (Bl d)Ordered By: Helen Jovel on 08-03-2023 Neutrophils/100 WBC (Bld) 76.6 % 41.1-75.9 [facility] No Panel InformationOrdered By: Helen Jovel on 08-03-2023 Pharmacy Creatinine Clearance (Chem 36 [facility] Platelet mean volume Auto (B ld) [Entitic vol]Ordered By: Helen Jovel on 08-03-2023 Platelet mean volume (Bld) [Entitic vol] 11.3 fL 8.6-12.2 [facility] Platelets Auto (Bld) [#/Vol] Ordered By: Helen Jovel on 08-03-2023 Platelets (Bld) [#/Vol] 220 10*3/uL 133-425 [facility] RBC Auto (Bld) [#/Vol]Ordere d By: Helen Jovel on 08-03-2023 RBC (Bld) [#/Vol] 3.71 10*6/uL 3.90-5.90 [facility] Serum or plasma alanine walton otransferase measurement with P-5'-P (enzymatic activity/Ordered By: Helen Jovel on 08-03-2023 ALT With P-5'-P [Catalytic activity/Vol] 16 U/L 10-49 [facility] Serum or plasma albumin regi urement by bromocresol purple (BCP) dye binding method (mOrdered By: Helen Jovel on 08-03-2023 Albumin BCP dye [Mass/Vol] 2.9 g/dL 3.4-5.0 [facility] Serum or plasma alkaline mari sphatase measurement (enzymatic activity/volume)Ordered By: Helen Jovel on 08-03-2023 ALP [Catalytic activity/Vol] 100 U/L 46-116 [facility] Serum or plasma aspartate am inotransferase measurement with P-5'-P (enzymatic activitOrdered By: Helen Jovel on 08-03-2023 AST With P-5'-P [Catalytic activity/Vol] 16 U/L 0-33 [facility] Serum or plasma calcium regi urement (mass/volume)Ordered By: Helen Jovel on 08-03-2023 Calcium [Mass/Vol] 8.2 mg/dL 8.3-10.6 [facility] Serum or plasma chloride taryn surement (moles/volume)Ordered By: Helen Jovel on 08-03-2023 Chloride [Moles/Vol] 111 mmol/L 98-107 [facility] Serum or plasma creatinine m easurement (mass/volume)Ordered By: Helen Jovel on 08-03-2023 Creatinine [Mass/Vol] 2.348 mg/dL 0.70-1.30 [facility] Serum or plasma glucose regi urement (mass/volume)Ordered By: Helen Jovel on 08-03-2023 Glucose [Mass/Vol] 147 mg/dL 74-106 Dori martínez [facility] Comment on above: Delta: 30 on 3-4 Serum or plasma magnesium me asurement (mass/volume)Ordered By: Helen Jovel on 08-03-2023 Magnesium [Mass/Vol] 1.9 mg/dL 1.6-2.6 [facility] Serum or plasma potassium me asurement (moles/volume)Ordered By: Helen Jovel on 08-03-2023 Potassium [Moles/Vol] 4.6 mmol/L 3.5-5.1 [facility] Serum or plasma sodium measu rement (moles/volume)Ordered By: Helen Jovel on 08-03-2023 Sodium [Moles/Vol] 140 mmol/L 136-145 [facility] Serum or plasma total biliru bin measurement (mass/volume)Ordered By: Helen Jovel on 08-03-2023 Bilirubin [Mass/Vol] 0.3 mg/dL 0.3-1.2 [facility] Serum or plasma total carbon dioxide measurement (moles/volume)Ordered By: Helen Jovel on 08-03-2023 CO2 [Moles/Vol] 22 mmol/L [facility] Serum or plasma urea nitroge n measurement (mass/volume)Ordered By: Helen Jovel on 08-03-2023 Urea nitrogen [Mass/Vol] 50 mg/dL 07-06 [facility] Serum total protein measurem ent (mass/volume)Ordered By: Helen Jovel on 08-03-2023 Protein [Mass/Vol] 5.4 g/dL 5.7-8.2 [facility] WBC Auto (Bld) [#/Vol]Ordere d By: Helen Jovel on 08-03-2023 WBC (Bld) [#/Vol] 10.3 10*3/uL 4.5-11.0 [facility] Comment on above: Delta: 14.5 on 08/02 Absolute lymphocyte countOrd ered By: Christopher Santiago on 08-02-2023 Lymphocytes Auto (Unsp spec) [#/Vol] 0.92 10*3/uL 0.80-3.30 [facility] Amphetamine Screen Ql (U)Ord ered By: Helen Stanleyfadi on 08-02-2023 Amphetamines Ql (U) Not detected None Detect [facility] Comment on above: Cutoff: 500ng/mL Appearance urOrdered By: Lety Jovel on 08-02-2023 Appearance (U) Clear Clear [facility] Arterial Blood Gason 023 Glucose [Mass/Vol] 39 mg/dL Critically low 70-110 So [facility] Comment on above: Order Comment: Speci men Type: Unknown Relevant Clinical Information: low gluc Ordering Facility: [facility]#[id number] Address: [address] [place] [address] Performed By: #### A BG #### [facility]#[id number] CLIA [id number] [address] [place] [address] Phil Franklin, DO,FCAP Hemoglobin (Bld) [Mass/Vol] 14.0 g/dL Normal 12.2-18.1 [facility] Comment on above: Order Comment: Speci men Type: Unknown Relevant Clinical Information: low gluc Ordering Facility: [facility]#[id number] Address: [address] [place] [address] Performed By: #### A BG #### [facility]#[id number] CLIA [id number] [address] [place] [address] Phil Franklin, DO,FCAP Normalized Ionized Calcium 1.19 mmol/L Normal 1.01-1.33 [facility] Comment on above: Order Comment: Speci men Type: Unknown Relevant Clinical Information: low gluc Ordering Facility: [facility]#[id number] Address: [address] [place] [address] Performed By: #### A BG #### [facility]#[id number] CLIA [id number] [address] [place] [address] Pihl Franklin, DO,FCAP Arterial Blood Methemoglobin 0.3 % Normal 0.0-0.3 [facility] Comment on above: Order Comment: Speci men Type: Unknown Relevant Clinical Information: low gluc Ordering Facility: [facility]#[id number] Address: [address] [place] [address] Performed By: #### A BG #### [facility]#[id number] CLIA [id number] [address] [place] [address] Phil Franklin DO,FCAP Arterial Lactate 0.7 mmol/L Normal 0.5-1.6 [facility] Comment on above: Order Comment: Speci men Type: Unknown Relevant Clinical Information: low gluc Ordering Facility: [facility]#[id number] Address: [address] [place] [address] Performed By: #### A BG #### [facility]#[id number] CLIA [id number] [address] [place] [address] Phil Franklin DO,FCAP Base Excess ABG -3.6 mmol/L Normal [facility] Comment on above: Order Comment: Speci men Type: Unknown Relevant Clinical Information: low gluc Ordering Facility: [facility]#[id number] Address: [address] [place] [address] Performed By: #### A BG #### [facility]#[id number] CLIA [id number] [address] [place] [address] Phil Franklin DO,FCAP Carboxyhemoglobin 4.1 % High 0.1-2.5 [facility] Comment on above: Order Comment: Speci men Type: Unknown Relevant Clinical Information: low gluc Ordering Facility: [facility]#[id number] Address: [address] [place] [address] Performed By: #### A BG #### [facility]#[id number] CLIA [id number] [address] [place] [address] Phil Franklin, DO,FCAP Fractionated Inspired Oxygen 21 % Normal [facility] Comment on above: Order Comment: Speci men Type: Unknown Relevant Clinical Information: low gluc Ordering Facility: [facility]#[id number] Address: [address] [place] [address] Performed By: #### A BG #### [facility]#[id number] CLIA [id number] [address] [place] [address] Phil Franklin, DO,FCAP HCO3 (Bld) [Moles/Vol] 22 mmol/L Normal 22-26 [facility] Comment on above: Order Comment: Speci men Type: Unknown Relevant Clinical Information: low gluc Ordering Facility: [facility]#[id number] Address: [address] [place] [address] Performed By: #### A BG #### [facility]#[id number] CLIA [id number] [address] [place] [address] Phil Franklin, DO,FCAP Oxygen Content ABG 17.9 mL/dL Normal 17-100 [facility] Comment on above: Order Comment: Speci men Type: Unknown Relevant Clinical Information: low gluc Ordering Facility: [facility]#[id number] Address: [address] [place] [address] Performed By: #### A BG #### [facility]#[id number] CLIA [id number] [address] [place] [address] Phil Franklin, DO,FCAP Oxygen Saturation ABG 95.1 % Low 96-[address] [facility] Comment on above: Order Comment: Speci men Type: Unknown Relevant Clinical Information: low gluc Ordering Facility: [facility]#[id number] Address: [address] [place] [address] Performed By: #### A BG #### [facility]#[id number] CLIA [id number] [address] [place] [address] Phil Franklin, DO,FCAP PCO2 ABG 41 mm[Hg] Normal 32-53 [facility] Comment on above: Order Comment: Speci men Type: Unknown Relevant Clinical Information: low gluc Ordering Facility: [facility]#[id number] Address: [address] [place] [address] Performed By: #### A BG #### [facility]#[id number] CLIA [id number] [address] [place] [address] Phil Franklin, DO,FCAP PO2 ABG 82.2 mm[Hg] Normal 80-110 [facility] Comment on above: Order Comment: Speci men Type: Unknown Relevant Clinical Information: low gluc Ordering Facility: [facility]#[id number] Address: [address] [place] [address] Performed By: #### A BG #### [facility]#[id number] CLIA [id number] [address] [place] [address] Phil Franklin, DO,FCAP Potassium [Moles/Vol] 4.5 mmol/L Normal 3.5-5.[address] [facility] Comment on above: Order Comment: Speci men Type: Unknown Relevant Clinical Information: low gluc Ordering Facility: [facility]#[id number] Address: [address] [place] [address] Performed By: #### A BG #### [facility]#[id number] CLIA [id number] [address] [place] [address] Phil Franklin, DO,FCAP Sodium [Moles/Vol] 139 mmol/L Normal 136-145 [facility] Comment on above: Order Comment: Speci men Type: Unknown Relevant Clinical Information: low gluc Ordering Facility: [facility]#[id number] Address: [address] [place] [address] Performed By: #### A BG #### [facility]#[id number] CLIA [id number] [address] [place] [address] Phil Franklin, DO,FCAP Arterial Blood pH 7.34 Low 7.35-7.45 [facility] Comment on above: Order Comment: Speci men Type: Unknown Relevant Clinical Information: [facility] gluc Ordering Facility: [facility]#[id number] Address: [address] [place] [address] Performed By: #### A BG #### [facility]#[id number] CLIA [id number] [address] [place] [address] Phil Franklin, DO,FCAP Arterial blood methemoglobin /total hemoglobinOrdered By: Christopher Santiago on 08-02-2023 Methemoglobin (BldA) [Mass fraction] 0.3 % 0.0-0.3 [facility] Arterial blood oxygen measur ementOrdered By: Christopher Santiago on 08-02-2023 Oxygen content (BldA) [Moles/Vol] 17.9 mL/dL 17-100 [facility] Arterial whole blood lactic acid measurement (moles/volume)Ordered By: Christopher Santiago on 08-02-2023 Lactate (BldA) [Moles/Vol] 0.7 mmol/L 0.5-1.6 [facility] Automated bacteria count in urine sediment (number/area)Ordered By: Helen Jovel on 08-02-2023 Bacteria Auto (Urine sed) [#/Area] None None [facility] Automated erythrocytes count in urine sediment (number/area)Ordered By: Helen Jovel on 08-02-2023 RBC Auto (Urine sed) [#/Area] 1 /HPF 0-5 [facility] Automated non-squamous epith elial cells count in urine sediment (number/area)Ordered By: Helen Jovel on 08-02-2023 Epithelial cells.non-squamous Auto (Urine sed) [#/Area] 0 /HPF 0-4 [facility] Automated urine leukocytes c ount (number/volume)Ordered By: Helen Jovel on 08-02-2023 WBC Auto (U) [#/Vol] 0 /HPF 0-4 [facility] Base excess Calc (BldA) [Mol es/Vol]Ordered By: Christopher Santiago on 08-02-2023 Base excess Calc (Bld) [Moles/Vol] -3.6000 mmol/L [facility] Basic Metabolic Panelon 07-15 Glucose [Mass/Vol] 30 mg/dL Critically low 74-106 So [facility] Comment on above: Order Comment: Speci men Type: Unknown Relevant Clinical Information: Altered mental status, hypoglycemia, hypothermia Ordering Facility: [facility]#[id number] Address: [address] [place] [address] Performed By: #### Aislinn Worthy, CMP #### [facility]#[id number] CLIA [id number] [address] [place] [address] Phil Franklin DO,FCAP Anion gap [Moles/Vol] 11 mmol/L Normal 7-[address] [facility] Comment on above: Order Comment: Speci men Type: Unknown Relevant Clinical Information: Altered mental status, hypoglycemia, hypothermia Ordering Facility: [facility]#[id number] Address: [address] [place] [address] Performed By: #### Aislinn Worthy, CMP #### [facility]#[id number] CLIA [id number] [address] [place] [address] Phil Franklin DO,FCAP Calcium [Mass/Vol] 9.4 mg/dL Normal 8.3-10.6 [facility] Comment on above: Order Comment: Speci men Type: Unknown Relevant Clinical Information: Altered mental status, hypoglycemia, hypothermia Ordering Facility: [facility]#[id number] Address: [address] [place] [address] Performed By: #### Aislinn Worthy, CMP #### [facility]#[id number] CLIA [id number] [address] [place], [place] [id number] Vincent Randaisi, DO,FCAP Chloride [Moles/Vol] 106 mmol/L Normal 98-107 [facility] Comment on above: Order Comment: Speci men Type: Unknown Relevant Clinical Information: Altered mental status, hypoglycemia, hypothermia Ordering Facility: [facility]#[id number] Address: [address] [place] [address] Performed By: #### Aislinn Worthy, CMP #### [facility]#[id number] CLIA [id number] [address] [place] [address] Vincent Randaisi, DO,FCAP CO2 [Moles/Vol] 26 mmol/L Normal 20-31 [facility] Comment on above: Order Comment: Speci men Type: Unknown Relevant Clinical Information: Altered mental status, hypoglycemia, hypothermia Ordering Facility: [facility]#[id number] Address: [address] [place] [address] Performed By: #### Aislinn Worthy, CMP #### [facility]#[id number] CLIA [id number] [address] [place] [address] Vincent Randaisi, DO,FCAP Creatinine [Mass/Vol] 2.585 mg/dL High 0.70-1.30 So [facility] Comment on above: Order Comment: Speci men Type: Unknown Relevant Clinical Information: Altered mental status, hypoglycemia, hypothermia Ordering Facility: [facility]#[id number] Address: [address] [place] [address] Performed By: #### Aislinn Worthy, CMP #### [facility]#[id number] CLIA [id number] [address] [place] [address] Vincent Randaisi, DO,FCAP Creatinine Clr Calc Pharmacy 32 Normal [facility] Comment on above: Order Comment: Speci men Type: Unknown Relevant Clinical Information: Altered mental status, hypoglycemia, hypothermia Ordering Facility: [facility]#[id number] Address: [address] [place] [address] Performed By: #### Aislinn Worthy, JOLYNN #### [facility]#[id number] CLIA [id number] [address] [place] [address] Phil Franklin, DO,FCAP GFR/1.73 sq M.predicted MDRD (S/P/Bld) [Vol rate/Area] 28 mL/min/{1.73_m2} [facility] Comment on above: Order Comment: Speci men Type: Unknown Relevant Clinical Information: Altered mental status, hypoglycemia, hypothermia Ordering Facility: [facility]#[id number] Address: [address] [place] [address] Result Comment: K/DO QI Guideline: Stage 1 [...] Performed By: #### Aislinn Worthy, CMP #### [facility]#[id number] CLIA [id number] [address] [place] [address] Phil Franklin, DO,FCAP Potassium [Moles/Vol] 4.2 mmol/L Normal 3.5-5.[address] [facility] Comment on above: Order Comment: Speci men Type: Unknown Relevant Clinical Information: Altered mental status, hypoglycemia, hypothermia Ordering Facility: [facility]#[id number] Address: [address] [place] [address] Performed By: #### Aislinn Worthy, CMP #### [facility]#[id number] CLIA [id number] [address] [place] [address] hPil Franklin DO,FCAP Sodium [Moles/Vol] 139 mmol/L Normal 136-145 [facility] Comment on above: Order Comment: Speci men Type: Unknown Relevant Clinical Information: Altered mental status, hypoglycemia, hypothermia Ordering Facility: [facility]#[id number] Address: [address] [place] [address] Performed By: #### Aislinn Worthy, CMP #### [facility]#[id number] CLIA [id number] [address] [place] [address] Phil Franklin DO,FCAP Urea nitrogen [Mass/Vol] 48 mg/dL High 9-23 [facility] Comment on above: Order Comment: Speci men Type: Unknown Relevant Clinical Information: Altered mental status, hypoglycemia, hypothermia Ordering Facility: [facility]#[id number] Address: [address] [place] [address] Performed By: #### Aislinn Worthy, CMP #### [facility]#[id number] CLIA [id number] [address] [place] [address] Phil Franklin DO,FCAP Basophils Auto (Bld) [#/Vol] Ordered By: Christopher Santiago on 08-02-2023 Basophils (Bld) [#/Vol] 0.04 10*3/uL 0.00-0.10 [facility] Basophils/100 WBC Auto (Bld) Ordered By: Christopher Santiago on 08-02-2023 Basophils/100 WBC (Bld) 0.3 % 0.0-1.3 S [facility] Bilirubin Auto test strip Ql (U)Ordered By: Helen Jovel on 08-02-2023 Bilirubin Ql (U) Negative Negative [facility] Blood hemoglobin measurement (mass/volume)Ordered By: Christopher Santiago on 08-02-2023 Hemoglobin (Bld) [Mass/Vol] 14.0 g/dL 13.5-17.7 [facility] C Peptideon 08-02-2023 C Peptide 2.00 ng/mL Normal 0.48-5.05 [facility] Comment on above: Order Comment: Speci men Type: Unknown Relevant Clinical Information: Altered mental status, hypoglycemia, hypothermia Ordering Facility: [facility]#[id number] Address: [address] [place] [address] Performed By: #### M G, CMP #### [facility]#[id number] CLIA [id number] [address] [place] [address] Phil Franklin DO,FCAP CBC w/ Auto Diffon 3 Basophils Absolute Auto 0.04 10*3/uL Normal 0.00-0.10 [facility] Comment on above: Order Comment: Speci men Type: Unknown Relevant Clinical Information: low gluc Ordering Facility: [facility]#[id number] Address: [address] [place] [address] Performed By: #### C BC #### [facility]#[id number] CLIA [id number] [address] [place] [address] Phil Franklin DO,FCAP Basophils/100 WBC (Bld) 0.3 % Normal 0.0-1.3 [facility] Comment on above: Order Comment: Speci men Type: Unknown Relevant Clinical Information: low gluc Ordering Facility: [facility]#[id number] Address: [address] [place] [address] Performed By: #### C BC #### [facility]#[id number] CLIA [id number] [address] [place] [address] Vincent Randaisi, DO,FCAP Eosinophils (Bld) [#/Vol] 0.29 10*3/uL Normal 0.00-0.50 [facility] Comment on above: Order Comment: Speci men Type: Unknown Relevant Clinical Information: low gluc Ordering Facility: [facility]#[id number] Address: [address] [place] [address] Performed By: #### C BC #### [facility]#[id number] CLIA [id number] [address] [place] [address] Phil Franklin DO,FCAP Eosinophils/100 WBC (Bld) 2.0 % Normal 0.0-5.8 [facility] Comment on above: Order Comment: Speci men Type: Unknown Relevant Clinical Information: low gluc Ordering Facility: [facility]#[id number] Address: [address] [place] [address] Performed By: #### C BC #### [facility]#[id number] CLIA [id number] [address] [place] [address] Phil Franklin, DO,FCAP Erythrocyte distribution width (RBC) [Ratio] 13.1 % Normal 11.6-14.8 [facility] Comment on above: Order Comment: Speci men Type: Unknown Relevant Clinical Information: low gluc Ordering Facility: [facility]#[id number] Address: [address] [place] [address] Performed By: #### C BC #### [facility]#[id number] CLIA [id number] [address] [place] [address] Phil Franklin, DO,FCAP Hematocrit (Bld) [Volume fraction] 40.5 % Low 41.0-53.0 [facility] Comment on above: Order Comment: Speci men Type: Unknown Relevant Clinical Information: low gluc Ordering Facility: [facility]#[id number] Address: [address] [place] [address] Performed By: #### C BC #### [facility]#[id number] CLIA [id number] [address] [place] [address] Phil Franklin, DO,FCAP Hemoglobin (Bld) [Mass/Vol] 14.0 g/dL Normal 13.5-17.7 [facility] Comment on above: Order Comment: Speci men Type: Unknown Relevant Clinical Information: low gluc Ordering Facility: [facility]#[id number] Address: [address] [place] [address] Performed By: #### C BC #### [facility]#[id number] CLIA [id number] [address] [place] [address] Phil Franklin, DO,FCAP Lymphocytes (Bld) [#/Vol] 0.92 10*3/uL Normal 0.80-3.30 [facility] Comment on above: Order Comment: Speci men Type: Unknown Relevant Clinical Information: low gluc Ordering Facility: [facility]#[id number] Address: [address] [place] [address] Performed By: #### C BC #### [facility]#[id number] CLIA [id number] [address] [place] [address] Phil Franklin DO,FCAP Lymphocytes/100 WBC (Bld) 6.3 % Low 13.4-45.1 [facility] Comment on above: Order Comment: Speci men Type: Unknown Relevant Clinical Information: low gluc Ordering Facility: [facility]#[id number] Address: [address] [place] [address] Performed By: #### C BC #### [facility]#[id number] CLIA [id number] [address] [place] [address] Phil Franklin, DO,FCAP MCH (RBC) [Entitic mass] 31.0 pg Normal 27.2-33.0 [facility] Comment on above: Order Comment: Speci men Type: Unknown Relevant Clinical Information: low gluc Ordering Facility: [facility]#[id number] Address: [address] [place] [address] Performed By: #### C BC #### [facility]#[id number] CLIA [id number] [address] [place] [address] Phil Franklin DO,FCAP MCHC (RBC) [Mass/Vol] 34.6 g/dL Normal 31.9-35.[address] [facility] Comment on above: Order Comment: Speci men Type: Unknown Relevant Clinical Information: low gluc Ordering Facility: [facility]#[id number] Address: [address] [place] [address] Performed By: #### C BC #### [facility]#[id number] CLIA [id number] [address] [place] [address] Phil Franklin DO,FCAP MCV (RBC) [Entitic vol] 89.8 fL Normal 81.7-97.1 [facility] Comment on above: Order Comment: Speci men Type: Unknown Relevant Clinical Information: low gluc Ordering Facility: [facility]#[id number] Address: [address] [place] [address] Performed By: #### C BC #### [facility]#[id number] CLIA [id number] [address] [place] [address] Phil Franklin DO,FCAP Monocytes (Bld) [#/Vol] 0.50 10*3/uL Normal 0.30-0.90 [facility] Comment on above: Order Comment: Speci men Type: Unknown Relevant Clinical Information: low gluc Ordering Facility: [facility]#[id number] Address: [address] [place] [address] Performed By: #### C BC #### [facility]#[id number] CLIA [id number] [address] [place] [address] Phil Franklin DO,FCAP Monocytes/100 WBC (Bld) 3.4 % Low 4.0-12.7 [facility] Comment on above: Order Comment: Speci men Type: Unknown Relevant Clinical Information: low gluc Ordering Facility: [facility]#[id number] Address: [address] [place] [address] Performed By: #### C BC #### [facility]#[id number] CLIA [id number] [address] [place] [address] Phil Franklin DO,FCAP Neutrophils Absolute Auto 12.71 10*3/uL High 1.70-7.00 [facility] Comment on above: Order Comment: Speci men Type: Unknown Relevant Clinical Information: low gluc Ordering Facility: [facility]#[id number] Address: [address] [place] [address] Performed By: #### C BC #### [facility]#[id number] CLIA [id number] [address] [place] [address] Phil Franklin DO,FCAP Neutrophils/100 WBC (Bld) 87.4 % High 41.1-75.9 [facility] Comment on above: Order Comment: Speci men Type: Unknown Relevant Clinical Information: low gluc Ordering Facility: [facility]#[id number] Address: [address] [place] [address] Performed By: #### C BC #### [facility]#[id number] CLIA [id number] [address] [place] [address] Phil Franklin DO,FCAP Platelet mean volume (Bld) [Entitic vol] 11.4 fL Normal 8.6-12.2 [facility] Comment on above: Order Comment: Speci men Type: Unknown Relevant Clinical Information: low gluc Ordering Facility: [facility]#[id number] Address: [address] [place] [address] Performed By: #### C BC #### [facility]#[id number] CLIA [id number] [address] [place] [address] Phil Franklin, DO,FCAP Platelets (Bld) [#/Vol] 285 10*3/uL Normal 133-425 [facility] Comment on above: Order Comment: Speci men Type: Unknown Relevant Clinical Information: low gluc Ordering Facility: [facility]#[id number] Address: [address] [place] [address] Performed By: #### C BC #### [facility]#[id number] CLIA [id number] [address] [place] [address] Phil Franklin DO,FCAP RBC (Bld) [#/Vol] 4.51 10*6/uL Normal 3.90-5.90 [facility] Comment on above: Order Comment: Speci men Type: Unknown Relevant Clinical Information: low gluc Ordering Facility: [facility]#[id number] Address: [address] [place] [address] Performed By: #### C BC #### [facility]#[id number] CLIA [id number] [address] [place] [address] Phil Franklin DO,FCAP WBC (Bld) [#/Vol] 14.5 10*3/uL High 4.5-11.0 [facility] Comment on above: Order Comment: Speci men Type: Unknown Relevant Clinical Information: low gluc Ordering Facility: [facility]#[id number] Address: [address] [place] [address] Performed By: #### C BC #### [facility]#[id number] CLIA [id number] [address] [place] [address] Phil Franklin DO,FCAP CO2 (BldA) [Partial pressure ]Ordered By: Christopher Santiago on 10-20-2023 CO2 (Bld) [Partial pressure] 41 mm[Hg] 32-53 [facility] CT biopsyOrdered By: Charo Jovel on 08-02-2023 Benzodiazepines Ql (U) Not detected None Detect [facility] Comment on above: Cutoff: 200ng/mL Cocaine Ql (U) Not detected None Detect [facility] Comment on above: Cutoff: 150ng/mL CT biopsy Not detected None Detect [facility] Comment on above: Cutoff: 200ng/mL CTHEADWOon 08-02-2023 CTHEADWO [facility] [address] [place], [place] [address] CT Scan Report Signed Patient: Chandler Minor MR#: [id number] [birth year] : 1970 Acct: [id number] Age/Sex: 53 / M ADM Date: 08/02/23 Loc: ER. Attending Dr: Ordering Physician: Christopher Santiago D.O. Date of Service: Procedure(s): CT head-brain [facility] Accession Number(s): [id number] cc: Christopher Santiago D.O. CT HEAD TECHNICAL: [...] Signed By: Chava Hernandez D.O. 08/02/23 0514 [id number] Normal [facility] CarboxyhemoglobinOrdered By: Christopher Santiago on 08-02-2023 Carboxyhemoglobin (Bld) [Mass/Vol] 4.1 % 0.1-2.5 [facility] Cholesterol in LDL Calc [Mas s/Vol]Ordered By: Marcelino Abel on 08-02-2023 Cholesterol in LDL [Mass/Vol] 28 mg/dL <100 [facility] Determination of inhaled oxy gen concentration (volume fraction)Ordered By: Christopher Santiago on 08-02-2023 Inhaled oxygen concentration 21 % [facility] Direct bilirubin measurement Ordered By: Helen Jovel on 08-02-2023 Bilirubin.direct [Mass/Vol] 0.1 mg/dL 0.0-0.3 [facility] Emergency Department Noteon 08-02-2023 [place] [address] Emergency Department Note Signed Patient: Chandler Minor MR#: [id number] : 1970 Acct: [id number] Age/Sex: 53 / M Date of Service: [...] Yes unobtainable due to mental status [facility] Medical History (Updated 08/02/23 @ 05: by Christopher Santiago DO) Diabetes Social History (Reviewed 08/02/23 @ 05: by Christopher Santiago DO) Advance Directives: No Advance Directives Information Provided: No Advance Directives on File: No Would like to be referred to [employer] Based Paint Technician for info?: No Smoking Status: Never smoker [...] with prior history of right-sided BKA Neuro [place] Coma Scale: document GCS findings Daniel Coma Scale Eye Opening: No response Durham coma scale verbal response: No response [place] Coma Scale Motor Response: Withdraws in response [...] Discussed case with both Zac Arguello, ICU MADELINE and Dr. Jovel. They both agreed to accept patient to the floor. Time: 06:09 Vital Signs Vital signs: Vital S (more content not included)... Normal [facility] Eosinophils Auto (Bld) [#/Vo l]Ordered By: Christopher Santiago on 08-02-2023 Eosinophils (Bld) [#/Vol] 0.29 10*3/uL 0.00-0.50 [facility] Eosinophils/100 WBC Auto (Bl d)Ordered By: Christpoher Santiago on 08-02-2023 Eosinophils/100 WBC (Bld) 2.0 % 0.0-5.8 [facility] Erythrocyte distribution wid th Auto (RBC) [Ratio]Ordered By: Christopher Santiago on 08-02-2023 Erythrocyte distribution width (RBC) [Ratio] 13.1 % 11.6-14.8 [facility] Free T4on 08-02-2023 Free T4 [Mass/Vol] 1.16 ng/dL Normal 0.89-1.76 Dori martínez [facility] Comment on above: Order Comment: Speci men Type: Unknown Relevant Clinical Information: Altered mental status, hypoglycemia, hypothermia Ordering Facility: [facility] Address: , , Performed By: #### G LUCOMETER #### [facility] Glomerular filtration rate ( GFR) estimation/1.73 sq m using creatinine measurement wiOrdered By: Christopher Santiago on 08-02-2023 GFR/1.73 sq M.predicted CKD-EPI (S/P/Bld) [Vol rate/Area] 28 mL/min >60 [facility] Comment on above: K/DOQI Guideline:Sta [...] [Mass/Vol] 240 mg/dL High 70-110 Dori martínez [facility] Comment on above: Order Comment: Speci men Type: Unknown Relevant Clinical Information: Altered mental status, hypoglycemia, hypothermia Ordering Facility: [facility]#[id number] Address: [address] [place] [address] Performed By: #### M G, CMP #### [facility]#[id number] CLIA [id number] [address] [place] [address] Phil Franklin, DO,FCAP Glucose [Mass/Vol] 110 mg/dL Normal 70-110 [facility] Comment on above: Order Comment: Speci men Type: Unknown Relevant Clinical Information: Altered mental status, hypoglycemia, hypothermia Ordering Facility: [facility]#[id number] Address: [address] [place] [address] Performed By: #### M G, CMP #### [facility]#[id number] CLIA [id number] [address] [place] [address] Phil Franklin DO,FCAP Glucose [Mass/Vol] 117 mg/dL High 70-110 [facility] Comment on above: Order Comment: Speci men Type: Unknown Relevant Clinical Information: Altered mental status, hypoglycemia, hypothermia Ordering Facility: [facility]#[id number] Address: [address] [place] [address] Performed By: #### M G, CMP #### [facility]#[id number] CLIA [id number] [address] [place] [address] Phil Franklin DO,FCAP Glucose [Mass/Vol] 124 mg/dL High 70-110 [facility] Comment on above: Order Comment: Speci men Type: Unknown Relevant Clinical Information: Altered mental status, hypoglycemia, hypothermia Ordering Facility: [facility] Address: , , Performed By: #### G LUCOMETER #### [facility] Glucose [Mass/Vol] 105 mg/dL Normal 70-110 [facility] Comment on above: Order Comment: Speci men Type: Unknown Relevant Clinical Information: Altered mental status, hypoglycemia, hypothermia Ordering Facility: [facility]#[id number] Address: [address] [place] [address] Performed By: #### M G, CMP #### [facility]#[id number] CLIA [id number] [address] [place], [place] [id number] Phil Dialsi, DO,FCAP Glucose [Mass/Vol] 102 mg/dL Normal 70-110 [facility] Comment on above: Order Comment: Speci men Type: Unknown Relevant Clinical Information: Altered mental status, hypoglycemia, hypothermia Ordering Facility: [facility]#[id number] Address: [address] [place] [address] Performed By: #### Aislinn Worthy, CMP #### [facility]#[id number] CLIA [id number] [address] [place] [address] Phil Dialsi, DO,FCAP Glucose [Mass/Vol] 97 mg/dL Normal 70-110 [facility] Comment on above: Order Comment: Speci men Type: Unknown Relevant Clinical Information: Altered mental status, hypoglycemia, hypothermia Ordering Facility: [facility]#[id number] Address: [address] [place] [address] Performed By: #### Aislinn Worthy, CMP #### [facility]#[id number] CLIA [id number] [address] [place] [address] Phil Dialsi, DO,FCAP Glucose [Mass/Vol] 96 mg/dL Normal 70-110 [facility] Comment on above: Order Comment: Speci men Type: Unknown Relevant Clinical Information: Altered mental status, hypoglycemia, hypothermia Ordering Facility: [facility]#[id number] Address: [address] [place] [address] Performed By: #### Aislinn Worthy, CMP #### [facility]#[id number] CLIA [id number] [address] [place] [address] Phil Dialsi, DO,FCAP Glucose [Mass/Vol] 111 mg/dL High 70-110 [facility] Comment on above: Order Comment: Speci men Type: Unknown Relevant Clinical Information: Altered mental status, hypoglycemia, hypothermia Ordering Facility: [facility] Lab-CLIA#[id number] Address: [address] [place] [address] Performed By: #### M G, CMP #### [facility]-CLIA#[id number] CLIA [id number] [address] [place], [place] [id number] Phil Franklin, DO,FCAP Glucose [Mass/Vol] 156 mg/dL High 70-110 [facility] Comment on above: Order Comment: Speci men Type: Unknown Relevant Clinical Information: Altered mental status, hypoglycemia, hypothermia Ordering Facility: [facility] Address: , , Performed By: #### G LUCOMETER #### [facility] Glucose [Mass/Vol] 55 mg/dL Low 70-110 [facility] Comment on above: Order Comment: Speci men Type: Unknown Relevant Clinical Information: low gluc Ordering Facility: [facility] Address: , , Performed By: #### G LUCOMETER #### [facility] Glucose (Bld) [Mass/Vol]Orde red By: Christopher Santiago on 08-02-2023 Glucose [Mass/Vol] 39 mg/dL 70-110 [facility] Glucose Glucometer (BldC) [M ass/Vol]Ordered By: Christopher Santiago on 08-02-2023 Glucose [Mass/Vol] 102 mg/dL 70-110 [facility] HCO3 (BldA) [Moles/Vol]Order ed By: Christopher Santiago on 08-02-2023 HCO3 (Bld) [Moles/Vol] 22 mmol/L 22-26 So [facility] Hematocrit Auto (Bld) [Volum e fraction]Ordered By: Christopher Santiago on 08-02-2023 Hematocrit (Bld) [Volume fraction] 40.5 % 41.0-53.0 [facility] Hemoglobin A1Con 08-02-2023 HbA1c (Bld) [Mass fraction] 12.0 % High <5.7 [facility] Comment on above: Order Comment: Speci denzel Type: Unknown Relevant Clinical Information: Altered mental status, hypoglycemia, hypothermia Ordering Facility: [facility] Address: , , Result Comment: Expe cted Values Suggested Diagnosis Diabetic >=6.5 (%) Prediabetes 5.7-6.4 (%) Normal <5.7 (%) Performed By: #### G LUCOMETER #### [facility] Hemoglobin A1c percentageOrd ered By: Helen Jovel on 08-02-2023 HbA1c (Bld) [Mass fraction] 12.0 % 0-5.6 [facility] Comment on above: Expected ValuesSugge sted Diagnosis Diabetic >=6.5 (%)Prediabetes 5.7-6.4 (%)Normal <5.7 (%) Hemoglobin Oximetry (BldA) [ Mass/Vol]Ordered By: Christopher Santiago on 08-02-2023 Hemoglobin (Bld) [Mass/Vol] 14.0 g/dL 12.2-18.1 [facility] Hepatic Function Panelon Albumin [Mass/Vol] 3.1 g/dL Low 3.4-5.0 [facility] Comment on above: Order Comment: Speci men Type: Unknown Relevant Clinical Information: Altered mental status, hypoglycemia, hypothermia Ordering Facility: [facility] Address: , , Performed By: #### G LUCOMETER #### [facility] ALP [Catalytic activity/Vol] 100 U/L Normal 46-116 [facility] Comment on above: Order Comment: Speci men Type: Unknown Relevant Clinical Information: Altered mental status, hypoglycemia, hypothermia Ordering Facility: [facility] Address: , , Performed By: #### G LUCOMETER #### [facility] ALT [Catalytic activity/Vol] 14 U/L Normal 10-49 [facility] Comment on above: Order Comment: Speci men Type: Unknown Relevant Clinical Information: Altered mental status, hypoglycemia, hypothermia Ordering Facility: [facility] Address: , , Performed By: #### G LUCOMETER #### [facility] AST [Catalytic activity/Vol] 18 U/L Normal <34 [facility] Comment on above: Order Comment: Speci men Type: Unknown Relevant Clinical Information: Altered mental status, hypoglycemia, hypothermia Ordering Facility: [facility] Address: , , Performed By: #### G LUCOMETER #### [facility] Bilirubin [Mass/Vol] 0.4 mg/dL Normal 0.3-1.2 [facility] Comment on above: Order Comment: Speci men Type: Unknown Relevant Clinical Information: Altered mental status, hypoglycemia, hypothermia Ordering Facility: [facility] Address: , , Performed By: #### G LUCOMETER #### [facility] Bilirubin.indirect [Mass/Vol] 0.1 mg/dL Normal <0.4 [facility] Comment on above: Order Comment: Speci men Type: Unknown Relevant Clinical Information: Altered mental status, hypoglycemia, hypothermia Ordering Facility: [facility] Address: , , Performed By: #### G LUCOMETER #### [facility] Protein [Mass/Vol] 6.0 g/dL Normal 5.7-8.2 Dori martínez [facility] Comment on above: Order Comment: Speci men Type: Unknown Relevant Clinical Information: Altered mental status, hypoglycemia, hypothermia Ordering Facility: [facility] Address: , , Performed By: #### G LUCOMETER #### [facility] Hyaline casts detection in u rine sediment by light microscopyOrdered By: Helen Jovel on 08-02-2023 Hyaline casts LM Ql (Urine sed) 6 /LPF 0-5 [facility] Internal Med History Physica marcos 08-02-2023 Internal Med History Physical [facility] [address] [place] [address] Internal Med History Physical Signed Patient: Chandler Minor MR#: [id number] : 1970 Acct: [id number] Age/Sex: 53 / M Date of Service: 08/02/23 Loc: [facility] 4828-[address]: Helen Jovel M.D. [...] micturition. Patient reports that he came to [place] to see his mom. Patient reports chronic [...] No Would like to be referred to Lead Based Paint Technician for info?: No Smoking Status: Current every [...] ORAL PM (more content not included)... Normal [facility] Ketones Auto test strip (U) [Mass/Vol]Ordered By: Helen Jovel on 08-02-2023 Ketones (U) [Mass/Vol] Negative Negative So [facility] Laboratory - Chemistry and C hemistry - challengeOrdered By: Christopher Santiago on 08-02-2023 Anion gap [Moles/Vol] 11 mmol/L 04-29 [facility] Lipid Panelon 08-02-2023 Cholesterol [Mass/Vol] 89 mg/dL Normal <200 So [facility] Comment on above: Order Comment: Speci men Type: Unknown Relevant Clinical Information: Altered mental status, hypoglycemia, hypothermia Ordering Facility: [facility] Lab-CLIA#[id number] Address: [address] [place] [address] Performed By: #### L IPID #### [facility]-CLIA#[id number] CLIA [id number] [address] [place] [address] Vincrony Dialsi, DO,FCAP Cholesterol in HDL [Mass/Vol] 32 mg/dL Low 40-60 [facility] Comment on above: Order Comment: Speci men Type: Unknown Relevant Clinical Information: Altered mental status, hypoglycemia, hypothermia Ordering Facility: [facility] Lab-CLIA#[id number] Address: [address] [place] [address] Performed By: #### L IPID #### [facility]-CLIA#[id number] CLIA [id number] [address] [place] [address] Phil Franklin, DO,FCAP Cholesterol in LDL [Mass/Vol] 28 mg/dL Normal <100 [facility] Comment on above: Order Comment: Speci men Type: Unknown Relevant Clinical Information: Altered mental status, hypoglycemia, hypothermia Ordering Facility: [facility] Lab-CLIA#[id number] Address: [address] [place] [address] Performed By: #### L IPID #### [facility]-CLIA#[id number] CLIA [id number] [address] [place] [address] Vincrony Franklin, DO,FCAP Triglyceride [Mass/Vol] 143 mg/dL Normal <149 [facility] Comment on above: Order Comment: Speci men Type: Unknown Relevant Clinical Information: Altered mental status, hypoglycemia, hypothermia Ordering Facility: [facility]-CLIA#[id number] Address: [address] [place] [address] Performed By: #### L IPID #### [facility]-CLIA#[id number] CLIA [id number] [address] [place] [address] Vincrony Franklin, DO,FCAP Lymphocytes/100 WBC Auto (Bl d)Ordered By: Christopher Santiago on 08-02-2023 Lymphocytes/100 WBC (Bld) 6.3 % 13.4-45.1 [facility] MCH Auto (RBC) [Entitic mass ]Ordered By: Christopher Santiago on 08-02-2023 MCH (RBC) [Entitic mass] 31.0 pg 27.2-33.0 [facility] MCHC Auto (RBC) [Mass/Vol]Or dered By: Christopher Santiago on 08-02-2023 MCHC (RBC) [Mass/Vol] 34.6 g/dL 31.9-35.1 [facility] MCV (mean corpuscular volume ) determinationOrdered By: Christopher Santiago on 08-02-2023 MCV (RBC) [Entitic vol] 89.8 fL 81.7-97.1 [facility] Monocytes Auto (Bld) [#/Vol] Ordered By: Christopher Santiago on 08-02-2023 Monocytes (Bld) [#/Vol] 0.50 10*3/uL 0.30-0.90 [facility] Monocytes/100 WBC Auto (Bld) Ordered By: Christopher Santiago on 08-02-2023 Monocytes/100 WBC (Bld) 3.4 % 4.0-12.7 [facility] Neurology Consult [place] [address] Neurology Consult Note Signed Patient: Chandler Minor MR#: [id number] : 1970 Acct: [id number] Age/Sex: 53 / M Date of Service: 08/02/23 Loc: [facility] 4828-[address]: Helen Jovel M.D. cc: [...] No Would like to be referred to Lead Based Paint Technician for info?: No Smoking Status: Current every [...] (Jardiance) ergoc (more content not included)... Normal [facility] Neutrophils Auto (Bld) [#/Vo l]Ordered By: Christopher Santiago on 08-02-2023 Neutrophils (Bld) [#/Vol] 12.71 10*3/uL 1.70-7.00 [facility] Neutrophils/100 WBC Auto (Bl d)Ordered By: Christopher Santiago on 08-02-2023 Neutrophils/100 WBC (Bld) 87.4 % 41.1-75.9 [facility] No Panel InformationOrdered By: Helen Jovel on 08-02-2023 Urine Drug Screen Comment. See comment [facility] Comment on above: This method [...] on 08-02-2023 Pharmacy Creatinine Clearance (Chem 32 [facility] Oxygen (BldA) [Partial press ure]Ordered By: Christopher Santiago on 08-02-2023 Oxygen (Bld) [Partial pressure] 82.2 mm[Hg] 80-110 [facility] Platelet mean volume Auto (B ld) [Entitic vol]Ordered By: Christopher Santiago on 08-02-2023 Platelet mean volume (Bld) [Entitic vol] 11.4 fL 8.6-12.2 [facility] Platelets Auto (Bld) [#/Vol] Ordered By: Christopher Santiago on 08-02-2023 Platelets (Bld) [#/Vol] 285 10*3/uL 133-425 [facility] Potassium (Bld) [Moles/Vol]O rdered By: Christopher Santiago on 08-02-2023 Potassium [Moles/Vol] 4.5 mmol/L 3.5-5.1 [facility] Procalcitoninon 08-02-2023 Procalcitonin 0.11 ng/mL Normal <0.10 [facility] Comment on above: Order Comment: Speci [...] The ProHOSP Randomized Controlled Trial. LAMAR 302: [address] - [address]66. Performed By: #### G LUCOMETER #### [facility] Protein Auto test strip (U) [Mass/Vol]Ordered By: Helen Jovel on 08-02-2023 Protein (U) [Mass/Vol] 300 mg/dL Negative So [facility] RBC Auto (Bld) [#/Vol]Ordere d By: Christopher Santiago on 08-02-2023 RBC (Bld) [#/Vol] 4.51 10*6/uL 3.90-5.90 [facility] Screening urine 6-acetylmorp dirk measurementOrdered By: Helen Jovel on 08-02-2023 6-Monoacetylmorphine (6-ELTON) Screen Ql (U) Not detected None Detect [facility] Comment on above: Cutoff: 10ng/mL Screening urine cannabinoids detection using 50 ng/mL cutoffOrdered By: Helen Jovel on 08-02-2023 Tetrahydrocannabinol Screen method >50 ng/mL Ql (U) Not detected None Detect [facility] Comment on above: Cutoff: 50ng/mL Screening urine opiates test Ordered By: Helen Jovel on 08-02-2023 Opiates Screen Ql (U) Not detected None Detect [facility] Comment on above: Cutoff: 300ng/mL Serum or plasma C peptide me asurement (mass/volume)Ordered By: Helen Jovel on 08-02-2023 C peptide [Mass/Vol] 2.00 ng/mL 0.48-5.05 [facility] Serum or plasma alanine walton otransferase measurement with P-5'-P (enzymatic activity/Ordered By: Helen Jovel on 08-02-2023 ALT With P-5'-P [Catalytic activity/Vol] 14 U/L 10-49 [facility] Serum or plasma albumin regi urement by bromocresol purple (BCP) dye binding method (mOrdered By: Helen Jovel on 08-02-2023 Albumin BCP dye [Mass/Vol] 3.1 g/dL 3.4-5.0 [facility] Serum or plasma alkaline mari sphatase measurement (enzymatic activity/volume)Ordered By: Helen Jovel on 08-02-2023 ALP [Catalytic activity/Vol] 100 U/L 46-116 [facility] Serum or plasma aspartate am inotransferase measurement with P-5'-P (enzymatic activitOrdered By: Helen Jovel on 08-02-2023 AST With P-5'-P [Catalytic activity/Vol] 18 U/L 0-33 [facility] Serum or plasma calcium regi urement (mass/volume)Ordered By: Christopher Santiago on 08-02-2023 Calcium [Mass/Vol] 9.4 mg/dL 8.3-10.6 [facility] Serum or plasma chloride taryn surement (moles/volume)Ordered By: Christopher Santiago on 08-02-2023 Chloride [Moles/Vol] 106 mmol/L 98-107 [facility] Serum or plasma cholesterol measurement (mass/volume)Ordered By: Marcelino Abel on 08-02-2023 Cholesterol [Mass/Vol] 89 mg/dL 0-199 So [facility] Serum or plasma creatinine m easurement (mass/volume)Ordered By: Christopher Santiago on 08-02-2023 Creatinine [Mass/Vol] 2.585 mg/dL 0.70-1.30 So [facility] Serum or plasma free thyroxi ne (FT4) measurement (mass/volume)Ordered By: Helen Jovel on 08-02-2023 Free T4 [Mass/Vol] 1.16 ng/dL 0.89-1.76 [facility] Serum or plasma glucose regi urement (mass/volume)Ordered By: Christopher Santiago on 08-02-2023 Glucose [Mass/Vol] 30 mg/dL 74-106 Dori martínez [facility] Serum or plasma high density lipoprotein (HDL) cholesterol measurementOrdered By: Marcelino Abel on 08-02-2023 Cholesterol in HDL [Mass/Vol] 32 mg/dL 40-60 [facility] Serum or plasma potassium me asurement (moles/volume)Ordered By: Christopher Santiago on 08-02-2023 Potassium [Moles/Vol] 4.2 mmol/L 3.5-5.1 [facility] Serum or plasma sodium measu rement (moles/volume)Ordered By: Christopher Santiago on 08-02-2023 Sodium [Moles/Vol] 139 mmol/L 136-145 Dori martínez [facility] Serum or plasma total biliru bin measurement (mass/volume)Ordered By: Helen Jovel on 08-02-2023 Bilirubin [Mass/Vol] 0.4 mg/dL 0.3-1.2 [facility] Serum or plasma total carbon dioxide measurement (moles/volume)Ordered By: Christopher Santiago on 08-02-2023 CO2 [Moles/Vol] 26 mmol/L 20- [facility] Serum or plasma triglyceride measurement (mass/volume)Ordered By: Marcelino Abel on 08-02-2023 Triglyceride [Mass/Vol] 143 mg/dL <149 [facility] Serum or plasma urea nitroge n measurement (mass/volume)Ordered By: Christopher Santiago on 08-02-2023 Urea nitrogen [Mass/Vol] 48 mg/dL 9- [facility] Serum procalcitonin measurem entOrdered By: Helen Jovel on 08-02-2023 Procalcitonin [Mass/Vol] 0.11 ng/mL <0.10 [facility] Comment on above: *Use of [...] an underlying bacterial infection difficult to establish. Reference:Carmyn Narvaez, et al. 2009. Effect of procalcitonin-basedguidelines vs standard guidelines on antibiotic use in lowerrespiratory tract infections. The ProHOSP Randomized Controlled Trial. LAMAR 302: 69542 - 1066. Serum total protein measurem ent (mass/volume)Ordered By: Helen Jovel on 08-02-2023 Protein [Mass/Vol] 6.0 g/dL 5.7-8.2 [facility] Sodium (Bld) [Moles/Vol]Orde red By: Christopher Santiago on 08-02-2023 Sodium [Moles/Vol] 139 mmol/L 136-145 [facility] TSHon 08-02-2023 TSH Qn 1.144 m[IU]/L Normal 0.550-4.78 0 [facility] Comment on above: Order Comment: Speci men Type: Unknown Relevant Clinical Information: Altered mental status, hypoglycemia, hypothermia Ordering Facility: [facility] Address: , , Performed By: #### G LUCOMETER #### [facility] TSH DL <= 0.005 mIU/L QnOrde red By: Helen Jovel on 08-02-2023 TSH Qn 1.144 m[IU]/L 0.550-4.78 0 [facility] UA Reflex to Micro and Cultu reon 08-02-2023 Appearance (U) Clear Normal Clear [facility] Comment on above: Order Comment: Speci men Type: Unknown Relevant Clinical Information: Altered mental status, hypoglycemia, hypothermia Ordering Facility: [facility] Lab-CLIA#[id number] Address: [address] [place] [address] Performed By: #### M G, CMP #### [facility]-CLIA#[id number] CLIA [id number] [address] [place] [address] Phil Franklin DO,FCAP Bilirubin Urine Negative Normal Negative [facility] Comment on above: Order Comment: Speci men Type: Unknown Relevant Clinical Information: Altered mental status, hypoglycemia, hypothermia Ordering Facility: [facility]-CLIA#[id number] Address: [address] [place] [address] Performed By: #### M G, CMP #### [facility]-CLIA#[id number] CLIA [id number] [address] [place] [address] Phil Franklin DO,FCAP Blood Urine Trace Abnormal Negative [facility] Comment on above: Order Comment: Speci men Type: Unknown Relevant Clinical Information: Altered mental status, hypoglycemia, hypothermia Ordering Facility: [facility]-CLIA#[id number] Address: [address] [place] [address] Performed By: #### Aislinn Worthy, CMP #### [facility]-CLIA#[id number] CLIA [id number] [address] [place] [address] Phil Franklin DO,FCAP Color (U) Yellow Normal Yellow [facility] Comment on above: Order Comment: Speci men Type: Unknown Relevant Clinical Information: Altered mental status, hypoglycemia, hypothermia Ordering Facility: [facility]-CLIA#[id number] Address: [address] [place] [address] Performed By: #### Aislinn G, CMP #### [facility]-CLIA#[id number] CLIA [id number] [address] [place] [address] Phil Franklin DO,FCAP Glucose Urine UA 500 mg/dL Abnormal Negative [facility] Comment on above: Order Comment: Speci men Type: Unknown Relevant Clinical Information: Altered mental status, hypoglycemia, hypothermia Ordering Facility: [facility]-CLIA#[id number] Address: [address] [place] [address] Performed By: #### M G, CMP #### [facility]-CLIA#[id number] CLIA [id number] [address] [place] [address] Phil Franklin DO,FCAP Ketones Ql (U) Negative Normal Negative [facility] Comment on above: Order Comment: Speci men Type: Unknown Relevant Clinical Information: Altered mental status, hypoglycemia, hypothermia Ordering Facility: [facility]-CLIA#[id number] Address: [address] [place] [address] Performed By: #### M G, CMP #### [facility]-CLIA#[id number] CLIA [id number] [address] [place] [address] Phil Franklin DO,FCAP Leukocyte Esterase Ur Negative Normal Negative [facility] Comment on above: Order Comment: Speci men Type: Unknown Relevant Clinical Information: Altered mental status, hypoglycemia, hypothermia Ordering Facility: [facility]-CLIA#[id number] Address: [address] [place] [address] Performed By: #### M G, CMP #### [facility]-CLIA#[id number] CLIA [id number] [address] [place] [address] Phil Franklin DO,FCAP Nitrite Urine Negative Normal Negative [facility] Comment on above: Order Comment: Speci men Type: Unknown Relevant Clinical Information: Altered mental status, hypoglycemia, hypothermia Ordering Facility: [facility]-CLIA#[id number] Address: [address] [place] [address] Performed By: #### M G, CMP #### [facility]-CLIA#[id number] CLIA [id number] [address] [place] [address] Phil Franklin DO,FCAP pH (U) 5.0 [pH] Normal <=7.5 [facility] Comment on above: Order Comment: Speci men Type: Unknown Relevant Clinical Information: Altered mental status, hypoglycemia, hypothermia Ordering Facility: [facility]-CLIA#[id number] Address: [address] [place] [address] Performed By: #### Aislinn Worthy, CMP #### [facility]CL[facility]#[id number] CLIA [id number] [address] [place] [address] Vincent Randaisi, DO,FCAP Protein Urine 300 Abnormal Negative [facility] Comment on above: Order Comment: Speci men Type: Unknown Relevant Clinical Information: Altered mental status, hypoglycemia, hypothermia Ordering Facility: [facility]-CLIA#[id number] Address: [address] [place] [address] Performed By: #### Aislinn Worthy, CMP #### [facility]-CLIA#[id number] CLIA [id number] [address] [place] [address] Phil Dialsi, DO,FCAP Specific Chambers Ur 1.015 Normal 1.005-1. 02 5 [facility] Comment on above: Order Comment: Speci men Type: Unknown Relevant Clinical Information: Altered mental status, hypoglycemia, hypothermia Ordering Facility: [facility]-CLIA#[id number] Address: [address] [place] [address] Performed By: #### Aislinn Worthy, CMP #### [facility]CLIA#[id number] CLIA [id number] [address] [place] [address] Phil Franklin, DO,FCAP Urine Type Clean Catch Normal [facility] Comment on above: Order Comment: Speci men Type: Unknown Relevant Clinical Information: Altered mental status, hypoglycemia, hypothermia Ordering Facility: [facility]-CLIA#[id number] Address: [address] [place] [address] Performed By: #### Aislinn Worthy, CMP #### [facility]CLIA#[id number] CLIA [id number] [address] [place] [address] Floraent Jazmineaisi, DO,FCAP Urobilinogen Urine 0.2 E.U./dL Normal 0-2.0 [facility] Comment on above: Order Comment: Speci men Type: Unknown Relevant Clinical Information: Altered mental status, hypoglycemia, hypothermia Ordering Facility: [facility]-CLIA#[id number] Address: [address] [place] [address] Performed By: #### M Deacon, CMP #### [facility]CLIA#[id number] CLIA [id number] [address] [place] [address] Phil Franklin DO, FCAP USRNLMTon 08-02-2023 [place] [address] Ultrasound Report Signed Patient: Chandler Minor MR#: [id number] : 1970 Acct: [id number] Age/Sex: 53 / M ADM Date: 08/02/23 Loc: [facility] 4828-[address]: Helen Jovel M.D. Ordering Physician: Helen Jovel M.D. Date of Service: Procedure(s): US renal limited retroper Accession Number(s): [id number] cc: Helen Jovel M.D. RENAL ULTRASOUND TECHNIQUE: [...] By: Jorge A Yang D.O. 08/02/23 1244 [id number] Normal [facility] Urine Drug Screen of Abuseon 08-02-2023 Amphetamine Screen Ur Not detected Normal None Detect [facility] Comment on above: Order Comment: Speci men Type: Unknown Relevant Clinical Information: Altered mental status, hypoglycemia, hypothermia Ordering Facility: [facility] Address: , , Result Comment: Cuto ff: 500ng/mL Performed By: #### G LUCOMETER #### [facility] Barbiturate Screen Ur Not detected Normal None Detect [facility] Comment on above: Order Comment: Speci men Type: Unknown Relevant Clinical Information: Altered mental status, hypoglycemia, hypothermia Ordering Facility: [facility] Address: , , Result Comment: Cuto ff: 200ng/mL Performed By: #### G LUCOMETER #### [facility] Benzodiazepines Screen Ur Not detected Normal None Detect [facility] Comment on above: Order Comment: Speci men Type: Unknown Relevant Clinical Information: Altered mental status, hypoglycemia, hypothermia Ordering Facility: [facility] Address: , , Result Comment: Cuto ff: 200ng/mL Performed By: #### G LUCOMETER #### [facility] Buprenorphine Screen Ur Not detected Normal None Detect [facility] Comment on above: Order Comment: Speci men Type: Unknown Relevant Clinical Information: Altered mental status, hypoglycemia, hypothermia Ordering Facility: [facility] Address: , , Result Comment: Cuto ff: 5ng/mL Performed By: #### G LUCOMETER #### [facility] Cannabinoid Screen Urine Not detected Normal None Detect [facility] Comment on above: Order Comment: Speci men Type: Unknown Relevant Clinical Information: Altered mental status, hypoglycemia, hypothermia Ordering Facility: [facility] Address: , , Result Comment: Cuto ff: 50ng/mL Performed By: #### G LUCOMETER #### [facility] Cocaine Screen Ur Not detected Normal None Detect [facility] Comment on above: Order Comment: Speci men Type: Unknown Relevant Clinical Information: Altered mental status, hypoglycemia, hypothermia Ordering Facility: [facility] Address: , , Result Comment: Cuto ff: 150ng/mL Performed By: #### G LUCOMETER #### [facility] Fentanyl Screen Ur Not detected Normal None Detect [facility] Comment on above: Order Comment: Speci men Type: Unknown Relevant Clinical Information: Altered mental status, hypoglycemia, hypothermia Ordering Facility: [facility] Address: , , Result Comment: Cuto ff: 1.0 ng/mL Quinine and Quinidine may interfere with Fentanyl screening. Performed By: #### G LUCOMETER #### [facility] Heroin (6-AM) Screen Ur Not detected Normal None Detect [facility] Comment on above: Order Comment: Speci men Type: Unknown Relevant Clinical Information: Altered mental status, hypoglycemia, hypothermia Ordering Facility: [facility] Address: , , Result Comment: Cuto ff: 10ng/mL Performed By: #### G LUCOMETER #### [facility] Methadone Screen Ur Not detected Normal None Detect [facility] Comment on above: Order Comment: Speci men Type: Unknown Relevant Clinical Information: Altered mental status, hypoglycemia, hypothermia Ordering Facility: [facility] Address: , , Result Comment: Cuto ff: 150ng/mL Performed By: #### G LUCOMETER #### [facility] Opiate Screen Ur Not detected Normal None Detect [facility] Comment on above: Order Comment: Speci men Type: Unknown Relevant Clinical Information: Altered mental status, hypoglycemia, hypothermia Ordering Facility: [facility] Address: , , Result Comment: Cuto ff: 300ng/mL Performed By: #### G LUCOMETER #### [facility] Oxycodone Screen Ur Not detected Normal None Detect [facility] Comment on above: Order Comment: Speci men Type: Unknown Relevant Clinical Information: Altered mental status, hypoglycemia, hypothermia Ordering Facility: [facility] Address: , , Result Comment: Cuto ff: 100ng/mL Performed By: #### G LUCOMETER #### [facility] Urine Drug Message Normal [facility] Comment on above: Order Comment: Speci [...] Hyaline Casts Urine 6 /LPF High 0-5 [facility] Comment on above: Order Comment: Speci men Type: Unknown Relevant Clinical Information: Altered mental status, hypoglycemia, hypothermia Ordering Facility: [facility] Lab-CLIA#[id number] Address: [address] [place] [address] Performed By: #### Aislinn Worthy, CMP #### [facility] Lab-CLIA#[id number] CLIA [id number] [address] [place] [address] Vincent Jayrosi, DO,FCAP RBC LM.HPF (Urine sed) [#/Area] 1 /[HPF] Normal 0-5 [facility] Comment on above: Order Comment: Speci men Type: Unknown Relevant Clinical Information: Altered mental status, hypoglycemia, hypothermia Ordering Facility: [facility] Lab-CLIA#[id number] Address: [address] [place] [address] Performed By: #### Aislinn Worthy, CMP #### [facility] Lab-CLIA#[id number] CLIA [id number] [address] [place] [address] Phil Franklin, DO,FCAP Squamous Epithelial Cell Urine 0 /HPF Normal 0-4 [facility] Comment on above: Order Comment: Speci men Type: Unknown Relevant Clinical Information: Altered mental status, hypoglycemia, hypothermia Ordering Facility: [facility] Lab-CLIA#[id number] Address: [address] [place] [address] Performed By: #### Aislinn Worthy, CMP #### [facility] Lab-CLIA#[id number] CLIA [id number] [address] [place] [address] Phil Franklin, DO,FCAP Urine Bacteria None Normal None [facility] Comment on above: Order Comment: Speci men Type: Unknown Relevant Clinical Information: Altered mental status, hypoglycemia, hypothermia Ordering Facility: [facility] Lab-CLIA#[id number] Address: [address] [place] [address] Performed By: #### Aislinn Worthy, CMP #### [facility] Lab-CLIA#[id number] CLIA [id number] [address] [place], [place] [id number] Vincent Jazmineaisi, DO,FCAP WBC LM.HPF (Urine sed) [#/Area] 0 /[HPF] Normal 0-4 [facility] Comment on above: Order Comment: Speci men Type: Unknown Relevant Clinical Information: Altered mental status, hypoglycemia, hypothermia Ordering Facility: [facility] Lab-CLIA#[id number] Address: [address] [place] [address] Performed By: #### M G, CMP #### [facility] Lab-CLIA#[id number] CLIA [id number] [address] [place] [address] Phil Franklin DO,JANET Urine blood detectionOrdered By: Helen Jovel on 08-02-2023 RBC Ql (U) Trace Negative [facility] Urine buprenorphine screenOr dered By: Helen Jovel on 08-02-2023 Buprenorphine Screen Ql (U) Not detected None Detect [facility] Comment on above: Cutoff: 5ng/mL Urine colorOrdered By: Vicente Jovel on 08-02-2023 Color (U) Yellow Yellow [facility] Urine fentanyl detection by screening methodOrdered By: Helen Jovel on 08-02-2023 fentaNYL Screen Ql (U) Not detected None Detect [facility] Comment on above: Cutoff: 1.0 ng/mLQui nine and Quinidine may interfere with Fentanyl screening. Urine glucose measurement by automated test strip (mass/volume)Ordered By: Helen Jovel on 08-02-2023 Glucose Auto test strip (U) [Mass/Vol] 500 mg/dL Negative [facility] Urine leukocyte esterase det ection by automated test stripOrdered By: Helen Jovel on 08-02-2023 Leukocyte esterase Auto test strip Ql (U) Negative Negative [facility] Urine methadone screenOrdere d By: Helen Jovel on 08-02-2023 Methadone Screen Ql (U) Not detected None Detect [facility] Comment on above: Cutoff: 150ng/mL Urine nitrite detection by a utomated test stripOrdered By: Helen Jovel on 08-02-2023 Nitrite Auto test strip Ql (U) Negative Negative [facility] Urine pHOrdered By: Helen Jovel on 08-02-2023 pH (U) 5.0 [pH] 0-7.5 [facility] Urine specific gravity measu rementOrdered By: Helen Jovel on 08-02-2023 Specific gravity (U) [Rel density] 1.015 1.005-1.02 5 [facility] Urine urobilinogen measureme ntOrdered By: Helen Jovel on 08-02-2023 Urobilinogen Ql (U) 0.2 E.U./dL 0-2.0 [facility] WBC Auto (Bld) [#/Vol]Ordere d By: Christopher Santiago on 08-02-2023 WBC (Bld) [#/Vol] 14.5 10*3/uL 4.5-11.0 [facility] Whole blood ionized calcium measurement adjusted to pH 7.4 (moles/volume)Ordered By: Christopher Santiago on 08-02-2023 Calcium.ionized adjusted to pH 7.4 (Bld) [Moles/Vol] 1.19 mmol/L 1.01-1.33 [facility] [id number] 08-02-2023 [id number] [place] [address] XRay Report Signed Patient: Chandler Minor MR#: [id number] [birth year] : 1970 Acct: [id number] Age/Sex: 53 / M ADM Date: 08/02/23 Loc: ER. Attending Dr: Ordering Physician: Helen Jovel M.D. Date of Service: Procedure(s): XR chest 1V portable Accession Number(s): [id number] cc: Helen Jovel M.D. CHEST COMPARISON: None [...] pulmonary disease identified. Electronically Signed By: Og aYng D.O. 08/02/23 0715 [id number] Normal [facility] oxyCODONE Screen Ql (U)Order ed By: Helen Jovel on 08-02-2023 oxyCODONE Ql (U) Not detected None Detect [facility] Comment on above: Cutoff: 100ng/mL pH (BldA)Ordered By: Christopher franklin on 08-02-2023 pH (Bld) 7.34 [pH] 7.35-7.45 [facility] Patient Provided Health Data on 07-29-2023 Patient Provided Health Data [id number]#1.00OTG TIFF Normal [facility] Progress Noteson 07-24-2023 Elementary Math Tutor Authentication Interface Message Text Longstanding PDR OU, [...] Dilate OU OCT mac OU Normal [facility] Study observation Right reti na by OCTon 07-24-2023 [facility] Radiology Study observation (narrative) [facility] Patient Handouton 07-12-2023 Patient Handout [id number]#1.00OTG TIFF [facility] INTRAVITREAL INJECTION, PHAR MACOLOGIC AGENT - OU [...] mL Route: Intravitreal, Site: Right Eye Lot: [id number], Expiration date: 06/27/2023 Left Eye Preparation included 10% betadine to eyelids. A 30 gauge needle was used. Injection Medications: 1.25 mg bevacizumab 1.25MG/0.05 mL Route: Intravitreal, Site: Left Eye Lot: [id number], Expiration date: 06/27/2023 Post-op Right Eye Post [...] written and verbal post procedure care education. [facility] Progress Noteson 06-26-2023 Elementary Math Tutor Authentication Interface Message Text Longstanding PDR OU, DME, mac ischemia OU Sp PRP OU, Repeated injections - last 10/2022 Did not notice any real improvement with injections [place] [address] Vision worse per pt A/P 1. DM [...] Dilate OU OCT mac OU Normal [facility] System Study observation Right reti na by JULon 06-26-2023 [facility] Radiology Study observation (narrative) [facility] Basic Metabolic Panelon Anion gap [Moles/Vol] Not performed Normal 6.0-15.0 [facility] Comment on above: Performed By: #### B MP, MG, CBC #### [facility] [address] [place] [address] [place] Calcium [Mass/Vol] 8.7 mg/dL Normal 8.6-10.3 [facility] Comment on above: Performed By: #### B MP, MG, CBC #### [facility] [address] [place] [address] [place] Chloride [Moles/Vol] 98 mmol/L Normal 98-107 [facility] Comment on above: Performed By: #### B MP, MG, CBC #### [facility] [address] [place] [address] [place] CO2 [Moles/Vol] 31.8 mmol/L High 21.0-31.0 [facility] Comment on above: Performed By: #### B MP, MG, CBC #### [facility] [address] [place] [address] [place] Creatinine [Mass/Vol] 2.57 mg/dL High 0.70-1.30 [facility] Comment on above: Performed By: #### B MP, MG, CBC #### [facility] [address] [place] [address] [place] Creatinine Clr Calc Pharmacy 38.54 Normal [facility] Comment on above: Performed By: #### B MP, MG, CBC #### [facility] [address] [place] [address] [place] GFR/1.73 sq M.predicted MDRD (S/P/Bld) [Vol rate/Area] 29.357 mL/min/{1.73_m2} Normal [facility] Comment on above: Performed By: #### B MP, MG, CBC #### [facility] [address] Glucose [Mass/Vol] 97 mg/dL Normal 70-100 [facility] Comment on above: Result Comment: [facility] Glucose Reference Range is dependent on time and content of last meal. Glucose of more than 200 mg/dL in a nonstressed, ambulatory subject supports the diagnosis of Diabetes Mellitus. ADA recommended reference range Performed By: #### B MP, MG, CBC #### [facility] [address] Potassium Normal 3.5-5.1 [facility] Comment on above: Result Comment: Spec imen hemolyzed, redraw requested Performed By: #### B MP, MG, CBC #### [facility] [address] Sodium Normal 136-145 [facility] Comment on above: Result Comment: Spec imen hemolyzed, redraw requested Performed By: #### B MP, MG, CBC #### [facility] [address] Urea nitrogen [Mass/Vol] 56 mg/dL High 7-25 [facility] Comment on above: Performed By: #### B MP, MG, CBC #### [facility] [address] [place] [address] [place] Basophils Auto (Bld) [#/Vol] Ordered By: Albert Woods on 04-18-2023 Basophils (Bld) [#/Vol] 0.0 10*3/uL 0.0-0.2 [facility] Basophils/100 WBC Auto (Bld) Ordered By: Albert Woods on 04-18-2023 Basophils/100 WBC (Bld) 0.6 % . [facility] Calcium [Mass/volume] in Ser um or PlasmaOrdered By: Albert Woods on 04-18-2023 Calcium [Mass/Vol] 8.7 mg/dL 8.6-10.3 [facility] Carbon dioxide, total [Moles /volume] in Serum or PlasmaOrdered By: Albert Woods on 04-18-2023 CO2 [Moles/Vol] 31.8 mmol/L 21.0-31.0 [facility] Chloride [Moles/volume] in S [place] or PlasmaOrdered By: Albert Woods on 04-18-2023 Chloride [Moles/Vol] 98 mmol/L 98-107 [facility] Complete Blood Count Auto Di ffon 04-18-2023 Basophils (Bld) [#/Vol] 0.0 10*3/uL Normal 0.0-0.2 [facility] Comment on above: Result Comment: PERF ORMED BY: [place] [address] PATHOLOGIST CASHIER HOST/HOSTESS MOOK BROWN M.D. Performed By: #### B MP, MG, CBC #### [address] Basophils/100 WBC (Bld) 0.6 % Normal . T janeth [facility] Comment on above: Performed By: #### B MP, MG, CBC #### [address] Eosinophils (Bld) [#/Vol] 0.3 10*3/uL Normal 0.0-0.45 [facility] Comment on above: Performed By: #### B MP, MG, CBC #### [facility] [address] Eosinophils/100 WBC (Bld) 4.2 % Normal . [facility] Comment on above: Performed By: #### B MP, MG, CBC #### [facility] [address] Erythrocyte distribution width (RBC) [Ratio] 16.2 % High 12.0-14.8 [facility] Comment on above: Performed By: #### B MP, MG, CBC #### [address] Hematocrit (Bld) [Volume fraction] 38.4 % Low 38.8-50.0 [facility] Comment on above: Performed By: #### B MP, MG, CBC #### [address] Hemoglobin (Bld) [Mass/Vol] 12.8 g/dL Low 13.0-17.0 [facility] Comment on above: Performed By: #### B MP, MG, CBC #### [address] Lymphocytes (Bld) [#/Vol] 1.3 10*3/uL Normal 1.00-4.8 [facility] Comment on above: Performed By: #### B MP, MG, CBC #### [address] Lymphocytes/100 WBC (Bld) 17.3 % Normal . [facility] Comment on above: Performed By: #### B MP, MG, CBC #### [address] MCH (RBC) [Entitic mass] 29.7 pg Normal 27.5-35.2 [facility] Comment on above: Performed By: #### B MP, MG, CBC #### [address] MCV (RBC) [Entitic vol] 89.5 fL Normal 83.5-101 T [facility] Comment on above: Performed By: #### B MP, MG, CBC #### [address] Mean Corpuscular HGB Conc 33.2 g/dL Normal 32.5-35.6 [facility] Comment on above: Performed By: #### B MP, MG, CBC #### [address] Monocytes (Bld) [#/Vol] 0.8 10*3/uL Normal 0.0-0.8 [facility] Comment on above: Performed By: #### B MP, MG, CBC #### [facility] [address] [place] [address] [place] Monocytes/100 WBC (Bld) 10.8 % Normal . T [facility] Comment on above: Performed By: #### B MP, MG, CBC #### [facility] [address] [place] [address] [place] Neutrophils (Bld) [#/Vol] 5.0 10*3/uL Normal 1.8-7.7 [facility] Comment on above: Performed By: #### B MP, MG, CBC #### [facility] [address] [place] [address] [place] Neutrophils/100 WBC (Bld) 67.1 % Normal . [facility] Comment on above: Performed By: #### B MP, MG, CBC #### [facility] [address] [place] [address] [place] NRBC% 0.1 /100{WBC} Normal 0-0.[address] [facility] Comment on above: Performed By: #### B MP, MG, CBC #### [facility] [address] [place] [address] [place] Platelet mean volume (Bld) [Entitic vol] 9.6 fL Normal 6.6-10.1 [facility] Comment on above: Performed By: #### B MP, MG, CBC #### [facility] [address] [place] [address] [place] Platelets (Bld) [#/Vol] 199 10*3/uL Normal 150-450 [facility] Comment on above: Performed By: #### B MP, MG, CBC #### [facility] [address] [place] [address] [place] RBC (Bld) [#/Vol] 4.29 10*6/uL Normal 3.90-5.[address] [facility] Comment on above: Performed By: #### B MP, MG, CBC #### [facility] [address] [place] [address] [place] WBC (Bld) [#/Vol] 7.4 10*3/uL Normal 4.1-10.5 [facility] Comment on above: Performed By: #### B MP, MG, CBC #### [address] Creatinine [Mass/volume] in Serum or PlasmaOrdered By: Albert Woods on 04-18-2023 Creatinine [Mass/Vol] 2.57 mg/dL 0.70-1.30 [facility] Eosinophils Auto (Bld) [#/Vo l]Ordered By: Albert Woods on 04-18-2023 Eosinophils (Bld) [#/Vol] 0.3 10*3/uL 0.0-0.45 [facility] Eosinophils/100 WBC Auto (Bl d)Ordered By: Albert Woods on 04-18-2023 Eosinophils/100 WBC (Bld) 4.2 % . [facility] Erythrocyte distribution wid th Auto (RBC) [Ratio]Ordered By: Albert Woods on 04-18-2023 Erythrocyte distribution width (RBC) [Ratio] 16.2 % 12.0-14.8 [facility] Free K+L LT Chains, Qn, Son 04-18-2023 Free [place] Light Chains, S 57.0 mg/L High 3.3-19.4 [facility] Comment on above: Performed By: #### B MP, MG, CBC #### [address] Free [place]ambda Light Chains, S 31.9 mg/L High 5.7-26.3 [facility] Comment on above: Performed By: #### B MP, MG, CBC #### [address] [place]/Lambda Ratio, S 1.79 High 0.26-1.65 [facility] Comment on above: Result Comment: Perf ormed at: CB - [facility] [address] [id number] Public Records Researcher: Phil Chua PhD, Phone: [phone] PERFORMED BY: [place] [address] PATHOLOGIST CASHIER HOST/HOSTESS MOOK BROWN M.D. Performed By: #### B MP, MG, CBC #### [place] [id number] [place] Glucose Glucometer (dC) [M ass/Vol]Ordered By: Kvng Dos Santos on 04-18-2023 Glucose [Mass/Vol] 133 mg/dL [facility] Comment on above: Random Glucose Refer ence Range is dependent on time and content of last meal. Glucose of more than 200 mg/dL in a nonstressed, ambulatory subject supports the diagnosis of Diabetes Mellitus. Glucose Poct Glucometerson 0 04-18-2023 Commemt1 Glu2: Cleaned Meter Normal [facility] Comment on above: Result Comment: PERF ORMED BY: [place] [address] PATHOLOGIST CASHIER HOST/HOSTESS MOOK BROWN M.D. Performed By: #### R EDRAW MG, REDRAW NA, REDRAW K #### [address] Glucose [Mass/Vol] 133 mg/dL Normal [facility] Comment on above: Result Comment: [facility] Glucose Reference Range is dependent on time and content of last meal. Glucose of more than 200 mg/dL in a nonstressed, ambulatory subject supports the diagnosis of Diabetes Mellitus. Performed By: #### R EDRAW MG, REDRAW NA, REDRAW K #### [address] Commemt1 Glu2: Cleaned Meter Normal [facility] Comment on above: Result Comment: PERF ORMED BY: [facility] [address] [place] [address] PATHOLOGIST CASHIER HOST/HOSTESS MOOK BROWN M.D. Performed By: #### R EDRAW MG, REDRAW NA, REDRAW K #### [address] Glucose [Mass/Vol] 114 mg/dL Normal [facility] Comment on above: Result Comment: [facility] Glucose Reference Range is dependent on time and content of last meal. Glucose of more than 200 mg/dL in a nonstressed, ambulatory subject supports the diagnosis of Diabetes Mellitus. Performed By: #### R MONISHA FERNÁNDEZ REDORIANA SALMERON #### [facility] [address] Glucose [Mass/volume] in Ser um or PlasmaOrdered By: Albert Woods on 04-18-2023 Glucose [Mass/Vol] 97 mg/dL 70-100 [facility] Comment on above: ADA recommended refe rence rangeRandom Glucose Reference Range is dependent on time and content of last meal. Glucose of more than 200 mg/dL in a nonstressed, ambulatory subject supports the diagnosis of Diabetes Mellitus. Hematocrit Auto (Bld) [Volum e fraction]Ordered By: Albert Woods on 04-18-2023 Hematocrit (Bld) [Volume fraction] 38.4 % 38.8-50.0 [facility] Hemoglobin [Mass/volume] in BloodOrdered By: Albert Woods on 04-18-2023 Hemoglobin (Bld) [Mass/Vol] 12.8 g/dL 13.0-17.0 [facility] Immunofixation, (LOVE), Urine on 04-18-2023 Immunofixation, (LOVE), Urine Comment: Normal . [facility] Comment on above: Result Comment: Pres ence of monoclonal protein is unclear at this time. Suggest repeat in 3 to 6 months if clinically indicated. Performed at: - [address] [id number] Public Records Researcher: Phil Chua PhD, Phone: [phone] PERFORMED BY: [facility] [address] [place] [address] PATHOLOGIST CASHIER HOST/HOSTESS MOOK BROWN M.D. Performed By: #### B MP, MG, CBC #### [facility] [address] Immunofixation,Serumon 04-18 Immunofixation, Serum Normal . [facility] Comment on above: Result Comment: No m onoclonality detected. Performed By: #### B MP, MG, CBC #### [facility] [address] Immunoglobulin A, Serum 149 mg/dL Normal 90-386 [facility] Comment on above: Performed By: #### B MP, MG, CBC #### [facility] [address] Immunoglobulin G 565 mg/dL Low 603-1613 [facility] Comment on above: Performed By: #### B MP, MG, CBC #### [facility] [address] Immunoglobulin M, Serum 36 mg/dL Normal 20-172 [facility] Comment on above: Performed By: #### B MP, MG, CBC #### [facility] [address] Leukocytes [#/volume] correc hamlet for nucleated erythrocytes in Blood by Automated counOrdered By: Albert Woods on 04-18-2023 WBC corrected for nucl RBC Auto (Bld) [#/Vol] 7.4 10*3/uL 4.1-10.5 [facility] Lymphocytes Auto (Bld) [#/Vo l]Ordered By: Albert Woods on 04-18-2023 Lymphocytes (Bld) [#/Vol] 1.3 10*3/uL 1.00-4.8 [facility] Lymphocytes/100 WBC Auto (Bl d)Ordered By: Albert Woods on 04-18-2023 Lymphocytes/100 WBC (Bld) 17.3 % . [facility] MCH Auto (RBC) [Entitic mass ]Ordered By: Albert Woods on 04-18-2023 MCH (RBC) [Entitic mass] 29.7 pg 27.5-35.2 [facility] MCHC Auto (RBC) [Mass/Vol]Or dered By: Albert Woods on 04-18-2023 MCHC (RBC) [Mass/Vol] 33.2 g/dL 32.5-35.6 [facility] MCV Auto (RBC) [Entitic vol] Ordered By: Albert Woods on 04-18-2023 MCV (RBC) [Entitic vol] 89.5 fL 83.5-101 F [facility] Magnesiumon 04-18-2023 Magnesium Normal 1.9-2.7 [facility] [facility] Comment on above: Result Comment: Spec imen hemolyzed, redraw requested PERFORMED BY: [place] [address] PATHOLOGIST CASHIER HOST/HOSTESS MOOK BROWN M.D. Performed By: #### B MP, MG, CBC #### [facility] [address] [place] [address] Magnesium [Mass/volume] in S guadalupe or PlasmaOrdered By: Kvng Dos Santos on 04-18-2023 Magnesium [Mass/Vol] 2.4 mg/dL 1.9-2.7 [facility] Monocytes Auto (Bld) [#/Vol] Ordered By: Albert Woods on 04-18-2023 Monocytes (Bld) [#/Vol] 0.8 10*3/uL 0.0-0.8 [facility] Monocytes/100 WBC Auto (Bld) Ordered By: Albert Woods on 04-18-2023 Monocytes/100 WBC (Bld) 10.8 % . F [facility] Neutrophils Auto (Bld) [#/Vo l]Ordered By: Albert Woods on 04-18-2023 Neutrophils (Bld) [#/Vol] 5.0 10*3/uL 1.8-7.7 [facility] Neutrophils/100 WBC Auto (Bl d)Ordered By: Albert Woods on 04-18-2023 Neutrophils/100 WBC (Bld) 67.1 % . [facility] No Panel InformationOrdered By: Kvng Dos Santos on 04-18-2023 Bedside Glucose Comment Glu2: cleaned meter [facility] No Panel InformationOrdered By: Albert Woods on 04-18-2023 Estimated GFR (CKD-EPI) 29.357 mL/Min [facility] Creatinine Clearance (Chem 38.54 [facility] Nucleated erythrocytes [Pres ence] in Blood by Automated countOrdered By: Albert Woods on 04-18-2023 Nucleated RBC Auto Ql (Bld) 0.1 /100{WBC} 0-0.5 [facility] Platelet mean volume Auto (B ld) [Entitic vol]Ordered By: Albert Woods on 04-18-2023 Platelet mean volume (Bld) [Entitic vol] 9.6 fL 6.6-10.1 [facility] Platelets Auto (Bld) [#/Vol] Ordered By: Albert Woods on 04-18-2023 Platelets (Bld) [#/Vol] 199 10*3/uL 150-450 [facility] Potassium [Moles/volume] in Serum or PlasmaOrdered By: Kvng Dos Santos on 04-18-2023 Potassium [Moles/Vol] 3.8 mmol/L 3.5-5.1 [facility] RBC Auto (Bld) [#/Vol]Ordere d By: Albert Woods on 04-18-2023 RBC (Bld) [#/Vol] 4.29 10*6/uL 3.90-5.60 [facility] Redraw Magnesiumon 3 Magnesium [Mass/Vol] 2.4 mg/dL Normal 1.9-2.7 [facility] Comment on above: Result Comment: PERF ORMED BY: [place] [address] PATHOLOGIST CASHIER HOST/HOSTESS MOOK BROWN M.D. Performed By: #### R EDRAW MG, REDRAW NA, REDRAW K #### [facility] [address] Redraw Potassiumon 3 Potassium [Moles/Vol] 3.8 mmol/L Normal 3.5-5.1 [facility] Comment on above: Performed By: #### R EDRAW MG, REDRAW NA, REDRAW K #### [address] Redraw Sodiumon 04-18-2023 Sodium [Moles/Vol] 138 mmol/L Normal 136-145 [facility] Comment on above: Performed By: #### R EDRAW MG, REDRAW NA, REDRAW K #### [facility] [address] Serum or plasma anion gap de terminationOrdered By: Albert Woods on 04-18-2023 Anion gap [Moles/Vol] TNP [facility] Comment on above: Test not performed Sodium [Moles/volume] in Ser um or PlasmaOrdered By: Kvng Dos Santos on 04-18-2023 Sodium [Moles/Vol] 138 mmol/L 136-145 [facility] Urea nitrogen [Mass/volume] in Serum or PlasmaOrdered By: Albert Woods on 04-18-2023 Urea nitrogen [Mass/Vol] 56 mg/dL 7- [facility] WBC Auto (Bld) [#/Vol]Ordere d By: Albert Woods on 04-18-2023 WBC (Bld) [#/Vol] 7.4 10*3/uL 4.1-10.5 [facility] A1C with Estimated Average G carmelon 04-17-2023 Glucose [Mass/Vol] 315 mg/dL Normal [facility] Comment on above: Result Comment: PERF ORMED BY: [place] [address] PATHOLOGIST CASHIER HOST/HOSTESS MOOK BROWN M.D. Performed By: #### R EDW MG, REDRAW NA, REDRAW K #### [facility] [address] [place] [address] HbA1c (Bld) [Mass fraction] 12.6 % High 4.3-5.6 [facility] Comment on above: Result Comment: Incr eased risk for diabetes: 5.7 - 6.4 diabetes: >6.4 glycemic control for adults with diabetes: <7.0 Performed By: #### R EDRAW MG, REDRAW NA, REDRAW K #### [facility] [address] [place] [address] Basic Metabolic Panelon Anion gap [Moles/Vol] 10.4 mmol/L Normal 6.0-15.0 [facility] Comment on above: Performed By: #### R EDRAW MG, REDRAW NA, REDRAW K #### [facility] [address] [place] [address] Calcium [Mass/Vol] 8.5 mg/dL Low 8.6-10.3 [facility] Comment on above: Performed By: #### R EDRAW MG, REDRAW NA, REDRAW K #### [place] [address] [place] Chloride [Moles/Vol] 100 mmol/L Normal 98-107 [facility] Comment on above: Performed By: #### R EDRAW MG, REDRAW NA, REDRAW K #### [address] CO2 [Moles/Vol] 30.3 mmol/L Normal 21.0-31.0 [facility] Comment on above: Performed By: #### R EDRAW MG, REDRAW NA, REDRAW K #### [address] Creatinine [Mass/Vol] 2.66 mg/dL High 0.70-1.30 [facility] Comment on above: Performed By: #### R EDRAW MG, REDRAW NA, REDRAW K #### [address] Creatinine Clr Calc Pharmacy 36.86 Normal [facility] Comment on above: Performed By: #### R EDRAW MG, REDRAW NA, REDRAW K #### [place] [address] [place] GFR/1.73 sq M.predicted MDRD (S/P/Bld) [Vol rate/Area] 28.169 mL/min/{1.73_m2} Normal [facility] Comment on above: Performed By: #### R EDRAW MG, REDRAW NA, REDRAW K #### [address] Glucose [Mass/Vol] 100 mg/dL Normal 70-100 [facility] Comment on above: Result Comment: [facility] Glucose Reference Range is dependent on time and content of last meal. Glucose of more than 200 mg/dL in a nonstressed, ambulatory subject supports the diagnosis of Diabetes Mellitus. ADA recommended reference range Performed By: #### R EDRAW MG, REDRAW NA, REDRAW K #### [address] Potassium [Moles/Vol] 3.7 mmol/L Normal 3.5-5.1 [facility] Comment on above: Performed By: #### R EDRAW MG, REDRAW NA, REDRAW K #### [address] Sodium [Moles/Vol] 137 mmol/L Normal 136-145 [facility] Comment on above: Performed By: #### R EDRAW MG, REDRAW NA, REDRAW K #### [place] [address] [place] Urea nitrogen [Mass/Vol] 57 mg/dL High 7-25 [facility] Comment on above: Performed By: #### R EDRAW MG, REDRAW NA, REDRAW K #### [address] Complete Blood Count Auto Di ffon 04-17-2023 Basophils (Bld) [#/Vol] 0.0 10*3/uL Normal 0.0-0.2 [facility] Comment on above: Result Comment: PERF ORMED BY: [place] [address] PATHOLOGIST CASHIER HOST/HOSTESS MOOK BROWN M.D. Performed By: #### R EDRAW MG, REDRAW NA, REDRAW K #### [place] [address] [place] Basophils/100 WBC (Bld) 0.5 % Normal . T [facility] Comment on above: Performed By: #### R EDRAW MG, REDRAW NA, REDRAW K #### [place] [id number] [place] Eosinophils (Bld) [#/Vol] 0.3 10*3/uL Normal 0.0-0.45 [facility] Comment on above: Performed By: #### R EDRAW MG, REDRAW NA, REDRAW K #### [address] Eosinophils/100 WBC (Bld) 4.0 % Normal . [facility] Comment on above: Performed By: #### R EDRAW MG, REDRAW NA, REDRAW K #### [address] Erythrocyte distribution width (RBC) [Ratio] 16.4 % High 12.0-14.8 [facility] Comment on above: Performed By: #### R EDRAW MG, REDRAW NA, REDRAW K #### [address] Hematocrit (Bld) [Volume fraction] 37.5 % Low 38.8-50.0 [facility] Comment on above: Performed By: #### R EDRAW MG, REDRAW NA, REDRAW K #### [address] Hemoglobin (Bld) [Mass/Vol] 12.6 g/dL Low 13.0-17.0 [facility] Comment on above: Performed By: #### R EDRAW MG, REDRAW NA, REDRAW K #### [address] Lymphocytes (Bld) [#/Vol] 1.2 10*3/uL Normal 1.00-4.8 [facility] Comment on above: Performed By: #### R EDRAW MG, REDRAW NA, REDRAW K #### [address] Lymphocytes/100 WBC (Bld) 14.4 % Normal . [facility] Comment on above: Performed By: #### R EDRAW MG, REDRAW NA, REDRAW K #### [address] MCH (RBC) [Entitic mass] 29.8 pg Normal 27.5-35.2 [facility] Comment on above: Performed By: #### R EDRAW MG, REDRAW NA, REDRAW K #### [address] MCV (RBC) [Entitic vol] 89.0 fL Normal 83.5-101 [facility] Comment on above: Performed By: #### R EDRAW MG, REDRAW NA, REDRAW K #### [address] Mean Corpuscular HGB Conc 33.5 g/dL Normal 32.5-35.6 [facility] Comment on above: Performed By: #### R EDRAW MG, REDRAW NA, REDRAW K #### [address] Monocytes (Bld) [#/Vol] 0.8 10*3/uL Normal 0.0-0.8 [facility] Comment on above: Performed By: #### R EDRAW MG, REDRAW NA, REDRAW K #### [address] Monocytes/100 WBC (Bld) 10.2 % Normal . [facility] Comment on above: Performed By: #### R EDRAW MG, REDRAW NA, REDRAW K #### [address] Neutrophils (Bld) [#/Vol] 5.8 10*3/uL Normal 1.8-7.7 [facility] Comment on above: Performed By: #### R EDRAW MG, REDRAW NA, REDRAW K #### [address] Neutrophils/100 WBC (Bld) 70.9 % Normal . [facility] Comment on above: Performed By: #### R EDRAW MG, REDRAW NA, REDRAW K #### [facility] [address] NRBC% 0.2 /100{WBC} Normal 0-0.5 [facility] Comment on above: Performed By: #### R EDRAW MG, REDRAW NA, REDRAW K #### [facility] [address] Platelet mean volume (Bld) [Entitic vol] 9.9 fL Normal 6.6-10.1 [facility] Comment on above: Performed By: #### R EDRAW MG, REDRAW NA, REDRAW K #### [facility] [address] Platelets (Bld) [#/Vol] 199 10*3/uL Normal 150-450 [facility] Comment on above: Performed By: #### R EDRAW MG, REDRAW NA, REDRAW K #### [facility] [address] RBC (Bld) [#/Vol] 4.21 10*6/uL Normal 3.90-5.[address] [facility] Comment on above: Performed By: #### R EDRAW MG, REDRAW NA, REDRAW K #### [facility] [address] [place] [address] WBC (Bld) [#/Vol] 8.2 10*3/uL Normal 4.1-10.5 [facility] Comment on above: Performed By: #### R EDRAW MG, REDRAW NA, REDRAW K #### [facility] [address] [place] [address] Creatinine [Mass/volume] in UrineOrdered By: Nkechi Kc on 04-17-2023 Creatinine (U) [Mass/Vol] 70.0 mg/dL 14.0-26.0 [facility] Creatinine, Urine (Random)on 04-17-2023 Creatinine, Urine (Random) 70.0 mg/dL High 14.0-26.0 [facility] Comment on above: Performed By: #### R EDRAW MG, REDRAW NA, REDRAW K #### [facility] [address] [place] [id number] [facility] Glucose Poct Glucometerson 0 04-17-2023 Commemt1 Glu2: Cleaned Meter Normal [facility] Comment on above: Result Comment: PERF ORMED BY: [place] [address] PATHOLOGIST CASHIER HOST/HOSTESS MOOK BROWN M.D. Performed By: #### R EDRAW MG, REDRAW NA, REDRAW K #### [facility] [address] Glucose [Mass/Vol] 339 mg/dL Normal [facility] Comment on above: Result Comment: [facility] Glucose Reference Range is dependent on time and content of last meal. Glucose of more than 200 mg/dL in a nonstressed, ambulatory subject supports the diagnosis of Diabetes Mellitus. Performed By: #### R EDRAW MG, REDRAW NA, REDRAW K #### [facility] [address] Glucose mean value [Mass/vol ume] in Blood Estimated from glycated hemoglobinOrdered By: Nkechi Kc on 04-17-2023 Average glucose Estimated from glycated hemoglobin (Bld) [Mass/Vol] 315 mg/dL [facility] Hemoglobin A1c percentageOrd ered By: Nkechi Kc on 04-17-2023 HbA1c (Bld) [Mass fraction] 12.6 % 4.3-5.6 [facility] Comment on above: Increased risk for d iabetes: 5.7 - 6.4diabetes: >6.4glycemic control for adults with diabetes: <7.0 Magnesiumon 04-17-2023 Magnesium [Mass/Vol] 2.3 mg/dL Normal 1.9-2.7 [facility] Comment on above: Result Comment: PERF ORMED BY: [facility] [address] [place] [address] PATHOLOGIST CASHIER HOST/HOSTESS MOOK BROWN M.D. Performed By: #### R EDRAW MG, REDRAW NA, REDRAW K #### [facility] [address] Protein [Mass/volume] in Uri neOrdered By: Nkechi Kc on 04-17-2023 Protein (U) [Mass/Vol] 330 mg/dL 0-9 [facility] Total Protein, Urineon 04-17 Protein (U) [Mass/Vol] 330 mg/dL High 0-9 e [facility] Comment on above: Result Comment: PERF ORMED BY: [place] [address] PATHOLOGIST CASHIER HOST/HOSTESS MOOK BROWN M.D. Performed By: #### R MONISHA FERNÁNDEZ REDRALeann AMAYA REDRAW K #### [address] Automated epithelial cells c ount in urine sediment (number/area)Ordered By: Kvng Dos Santos on 04-16-2023 Epithelial cells Auto (Urine sed) [#/Area] None seen [HPF] 0-2 [facility] Automated erythrocytes count in urine sediment (number/area)Ordered By: Kvng Dos Santos on 04-16-2023 RBC Auto (Urine sed) [#/Area] None seen [HPF] 0-4 [facility] Automated leukocytes count i n urine sediment (number/area)Ordered By: Kvng Dos Santos on 04-16-2023 WBC Auto (Urine sed) [#/Area] None seen [HPF] 0-4 [facility] Automated urine hyaline cast s count (number/volume)Ordered By: Kvng Dos Santos on 04-16-2023 Hyaline casts Auto (U) [#/Vol] None seen [LPF] 0-1 [facility] Basic Metabolic Panelon Anion gap [Moles/Vol] 12.7 mmol/L Normal 6.0-15.0 e [facility] Comment on above: Performed By: #### B MP #### [address] Calcium [Mass/Vol] 8.8 mg/dL Normal 8.6-10.3 [facility] Comment on above: Performed By: #### B MP #### [address] Chloride [Moles/Vol] 100 mmol/L Normal 98-107 [facility] Comment on above: Performed By: #### B MP #### [address] CO2 [Moles/Vol] 28.1 mmol/L Normal 21.0-31.0 [facility] Comment on above: Performed By: #### B MP #### [address] Creatinine [Mass/Vol] 2.80 mg/dL High 0.70-1.30 [facility] Comment on above: Performed By: #### B MP #### [address] Creatinine Clr Calc Pharmacy 35.07 Normal [facility] Comment on above: Result Comment: PERF ORMED BY: [place] [address] PATHOLOGIST CASHIER HOST/HOSTESS MOOK BROWN M.D. Performed By: #### B MP #### [address] GFR/1.73 sq M.predicted MDRD (S/P/Bld) [Vol rate/Area] 26.487 mL/min/{1.73_m2} Normal [facility] Comment on above: Performed By: #### B MP #### [address] Glucose [Mass/Vol] 161 mg/dL High 70-100 [facility] Comment on above: Result Comment: [facility] Glucose Reference Range is dependent on time and content of last meal. Glucose of more than 200 mg/dL in a nonstressed, ambulatory subject supports the diagnosis of Diabetes Mellitus. ADA recommended reference range Performed By: #### B MP #### [address] Potassium [Moles/Vol] 3.8 mmol/L Normal 3.5-5.1 [facility] Comment on above: Performed By: #### B MP #### [address] Sodium [Moles/Vol] 137 mmol/L Normal 136-145 [facility] Comment on above: Performed By: #### B MP #### [address] Urea nitrogen [Mass/Vol] 54 mg/dL High 7-25 [facility] Comment on above: Performed By: #### B MP #### [address] Anion gap [Moles/Vol] 12.5 mmol/L Normal 6.0-15.0 [facility] Comment on above: Performed By: #### R EDRAW MG, REDRAW NA, REDRAW K #### [address] Calcium [Mass/Vol] 8.2 mg/dL Low 8.6-10.3 [facility] Comment on above: Performed By: #### R EDRAW MG, REDRAW NA, REDRAW K #### [address] Chloride [Moles/Vol] 98 mmol/L Normal 98-107 [facility] Comment on above: Performed By: #### R EDRAW MG, REDRAW NA, REDRAW K #### [address] CO2 [Moles/Vol] 31.8 mmol/L High 21.0-31.0 [facility] Comment on above: Performed By: #### R EDRAW MG, REDRAW NA, REDRAW K #### [address] Creatinine [Mass/Vol] 3.23 mg/dL High 0.70-1.30 [facility] Comment on above: Performed By: #### R EDRAW MG, REDRAW NA, REDRAW K #### [address] [place] [address] [place] Creatinine Clr Calc Pharmacy 30.52 Normal [facility] Comment on above: Performed By: #### R EDRAW MG, REDRAW NA, REDRAW K #### [facility] [address] [place] [address] [place] GFR/1.73 sq M.predicted MDRD (S/P/Bld) [Vol rate/Area] 22.315 mL/min/{1.73_m2} Normal [facility] Comment on above: Performed By: #### R EDRAW MG, REDRAW NA, REDRAW K #### [address] Glucose [Mass/Vol] 133 mg/dL High 70-100 [facility] Comment on above: Result Comment: [facility] Glucose Reference Range is dependent on time and content of last meal. Glucose of more than 200 mg/dL in a nonstressed, ambulatory subject supports the diagnosis of Diabetes Mellitus. ADA recommended reference range Performed By: #### R EDRAW MG, REDRAW NA, REDRAW K #### [address] Potassium [Moles/Vol] 3.3 mmol/L Low 3.5-5.1 [facility] Comment on above: Performed By: #### R EDRAW MG, REDRAW NA, REDRAW K #### [address] Sodium [Moles/Vol] 139 mmol/L Normal 136-145 [facility] Comment on above: Performed By: #### R EDRAW MG, REDRAW NA, REDRAW K #### [address] Urea nitrogen [Mass/Vol] 56 mg/dL High 7-25 [facility] Comment on above: Performed By: #### R EDRAW MG, REDRAW NA, REDRAW K #### [address] Bilirubin Test strip Ql (U)O rdered By: Kvng Dos Santos on 04-16-2023 Bilirubin Ql (U) Negative Negative [facility] CT abdomen pelvis wo conon 0 04-16-2023 CT abdomen pelvis wo con [facility] Main [place] [address] [place] [id number] Scan Report Signed Patient: Chandler Minor MR#: [id number] 20 : 1970 Acct:[id number] Age/Sex: 52 / M ADM Date: 04/15/23 Loc: Room: [address] [place] [address] Type: ADM IN Attending Dr: Kvng Dos Santos DO Copies to: Kvng Dos Santos DO Ordering Provider: Kvng Dos Santos DO Date of Service: 04/16/23 [...] Jesu Reese M.D.04/16/2023 6:22 PM Dictation Location: [place] [address] Transcribed By: [facility] 04/16/231821 Dictated By: Jesu Reese DO 04/16/231817 Signed By: 07/04/23 1822 Normal [facility] Color Auto (U)Ordered By: Rona Dos Santos on 04-16-2023 Color (U) Yellow Yellow [facility] Complete Blood Count Auto Di ffon 04-16-2023 Basophils (Bld) [#/Vol] 0.0 10*3/uL Normal 0.0-0.2 [facility] Comment on above: Result Comment: PERF ORMED BY: [place] [address] PATHOLOGIST CASHIER HOST/HOSTESS MOOK BROWN M.D. Performed By: #### M G, BMP, CBC #### [facility] [address] Basophils/100 WBC (Bld) 0.5 % Normal . T [facility] Comment on above: Performed By: #### M G, BMP, CBC #### [facility] [address] [place] [address] [place] Eosinophils (Bld) [#/Vol] 0.3 10*3/uL Normal 0.0-0.45 [facility] Comment on above: Performed By: #### M G, BMP, CBC #### [facility] [address] [place] [address] [place] Eosinophils/100 WBC (Bld) 3.7 % Normal . [facility] Comment on above: Performed By: #### M G, BMP, CBC #### [facility] [address] [place] [address] [place] Erythrocyte distribution width (RBC) [Ratio] 16.3 % High 12.0-14.8 [facility] Comment on above: Performed By: #### M G, BMP, CBC #### [facility] [address] [place] [address] [place] Hematocrit (Bld) [Volume fraction] 38.1 % Low 38.8-50.0 [facility] Comment on above: Performed By: #### M G, BMP, CBC #### [facility] [address] [place] [address] [place] Hemoglobin (Bld) [Mass/Vol] 12.6 g/dL Low 13.0-17.0 [facility] Comment on above: Performed By: #### M G, BMP, CBC #### [facility] [address] Lymphocytes (Bld) [#/Vol] 1.4 10*3/uL Normal 1.00-4.8 [facility] Comment on above: Performed By: #### M G, BMP, CBC #### [place] [address] [place] Lymphocytes/100 WBC (Bld) 17.7 % Normal . [facility] Comment on above: Performed By: #### M G, BMP, CBC #### [address] MCH (RBC) [Entitic mass] 29.7 pg Normal 27.5-35.2 [facility] Comment on above: Performed By: #### M G, BMP, CBC #### [address] MCV (RBC) [Entitic vol] 90.3 fL Normal 83.5-101 [facility] Comment on above: Performed By: #### M G, BMP, CBC #### [address] Mean Corpuscular HGB Conc 32.9 g/dL Normal 32.5-35.6 [facility] Comment on above: Performed By: #### M G, BMP, CBC #### [place] [address] [place] Monocytes (Bld) [#/Vol] 0.7 10*3/uL Normal 0.0-0.8 [facility] Comment on above: Performed By: #### M G, BMP, CBC #### [place] [address] [place] Monocytes/100 WBC (Bld) 8.8 % Normal . [facility] Comment on above: Performed By: #### M G, BMP, CBC #### [address] Neutrophils (Bld) [#/Vol] 5.4 10*3/uL Normal 1.8-7.7 [facility] Comment on above: Performed By: #### Aislinn Worthy BMP, CBC #### [address] Neutrophils/100 WBC (Bld) 69.3 % Normal . [facility] Comment on above: Performed By: #### M G, BMP, CBC #### [address] NRBC% 0.1 /100{WBC} Normal 0-0.[address] [facility] Comment on above: Performed By: #### Aislinn Worthy BMP, CBC #### [address] Platelet mean volume (Bld) [Entitic vol] 9.5 fL Normal 6.6-10.1 [facility] Comment on above: Performed By: #### Aislinn Worthy BMP, CBC #### [address] Platelets (Bld) [#/Vol] 187 10*3/uL Normal 150-450 [facility] Comment on above: Performed By: #### M Deacon BMP, CBC #### [address] RBC (Bld) [#/Vol] 4.22 10*6/uL Normal 3.90-5.[address] [facility] Comment on above: Performed By: #### Aislinn Worthy BMP, CBC #### [address] WBC (Bld) [#/Vol] 7.8 10*3/uL Normal 4.1-10.5 [facility] Comment on above: Performed By: #### Aislinn Worthy BMP, CBC #### [address] Creatinine, Urine (Random)on 04-16-2023 Creatinine, Urine (Random) 57.0 mg/dL High 14.0-26.0 [facility] Comment on above: Result Comment: PERF ORMED BY: [place] [address] PATHOLOGIST CASHIER HOST/HOSTESS MOOK BROWN M.D. Performed By: #### U CREJESSICA Anderson #### [address] Dipstick and Microscopicon 0 04-16-2023 Appearance (U) Clear Normal Clear [facility] Comment on above: Order Comment: Name Collection Type:: Clean-Voided Midstream Performed By: #### R EDRAW MG, REDRAW NA, REDRAW K #### [address] Bacteria,Urine None Seen Normal None Seen [facility] Comment on above: Order Comment: Name Collection Type:: Clean-Voided Midstream Performed By: #### R EDRAW MG, REDRAW NA, REDRAW K #### [place] [address] [place] Bilirubin,Urine Negative Normal Negative [facility] Comment on above: Order Comment: Name Collection Type:: Clean-Voided Midstream Performed By: #### R EDRAW MG, REDRAW NA, REDRAW K #### [address] Color (U) Yellow Normal Yellow [facility] Comment on above: Order Comment: Name Collection Type:: Clean-Voided Midstream Performed By: #### R EDRAW MG, REDRAW NA, REDRAW K #### [address] Glucose Ql (U) >=1000 High Normal [facility] Comment on above: Order Comment: Name Collection Type:: Clean-Voided Midstream Performed By: #### R EDRAW MG, REDRAW NA, REDRAW K #### [address] Hyaline Casts,Urine None Seen Normal 0-1 [facility] Comment on above: Order Comment: Name Collection Type:: Clean-Voided Midstream Result Comment: PERF ORMED BY: [place] [address] PATHOLOGIST CASHIER HOST/HOSTESS MOOK BROWN M.D. Performed By: #### R EDRAW MG, REDRAW NA, REDRAW K #### [address] Ketones Ql (U) Negative Normal Negative [facility] Comment on above: Order Comment: Name Collection Type:: Clean-Voided Midstream Performed By: #### R EDRAW MG, REDRAW NA, REDRAW K #### [address] Leukocyte esterase Test strip Ql (U) Negative Normal Negative [facility] Comment on above: Order Comment: Name Collection Type:: Clean-Voided Midstream Performed By: #### R EDRAW MG, REDRAW NA, REDRAW K #### [place] [address] [place] Nitrite,Urine Negative Normal Negative The [facility] Comment on above: Order Comment: Name Collection Type:: Clean-Voided Midstream Performed By: #### R EDRAW MG, REDRAW NA, REDRAW K #### [place] [address] [place] Occult Blood,Urine Negative Normal Negative [facility] Comment on above: Order Comment: Name Collection Type:: Clean-Voided Midstream Result Comment: PERF ORMED BY: [place] [address] PATHOLOGIST CASHIER HOST/HOSTESS MOOK BROWN M.D. Performed By: #### R EDRAW MG, REDRAW NA, REDRAW K #### [place] [address] [place] pH (U) 6.5 [pH] Normal 5.0-9.0 [facility] Comment on above: Order Comment: Name Collection Type:: Clean-Voided Midstream Performed By: #### R EDRAW MG, REDRAW NA, REDRAW K #### [address] [address] [place] Protein (U) [Mass/Vol] 300 mg/dL High Negative Th e [facility] Comment on above: Order Comment: Name Collection Type:: Clean-Voided Midstream Performed By: #### R EDRAW MG, REDRAW NA, REDRAW K #### [facility] [address] [place] [address] RBC,Urine None Seen Normal 0-4 [facility] Comment on above: Order Comment: Name Collection Type:: Clean-Voided Midstream Performed By: #### R EDRAW MG, REDRAW NA, REDRAW K #### [facility] [address] [place] [address] Specificy Chambers,Urine 1.017 Normal 1.00 1-1.03 0 [facility] Comment on above: Order Comment: Name Collection Type:: Clean-Voided Midstream Performed By: #### R EDRAW MG, REDRAW NA, REDRAW K #### [facility] [address] [place] [address] Squamous Epithelial Cell,Urine None Seen Normal 0-2 [facility] Comment on above: Order Comment: Name Collection Type:: Clean-Voided Midstream Performed By: #### R EDRAW MG, REDRAW NA, REDRAW K #### [facility] [address] [place] [address] Urobilinogen,Urine Normal Normal Normal [facility] Comment on above: Order Comment: Name Collection Type:: Clean-Voided Midstream Performed By: #### R EDRAW MG, REDRAW NA, REDRAW K #### [facility] [address] [place] [address] WBC,Urine None Seen Normal 0-4 [facility] Comment on above: Order Comment: Name Collection Type:: Clean-Voided Midstream Performed By: #### R EDRAW MG, REDRAW NA, REDRAW K #### [facility] [address] [place] [address] Glucose Poct Glucometerson 0 04-16-2023 Commemt1 Glu2: Cleaned Meter Normal The [facility] Comment on above: Result Comment: PERF ORMED BY: [place] [address] PATHOLOGIST CASHIER HOST/HOSTESS MOOK BROWN M.D. Performed By: #### R MONISHA MG REDRAW NA REDRAW K #### [address] Glucose [Mass/Vol] 193 mg/dL Normal [facility] Comment on above: Result Comment: [facility] Glucose Reference Range is dependent on time and content of last meal. Glucose of more than 200 mg/dL in a nonstressed, ambulatory subject supports the diagnosis of Diabetes Mellitus. Performed By: #### R MONISHA FERNÁNDEZ REDRAW JOSE LUIS REDRAW K #### [address] Ketones Auto test strip (U) [Mass/Vol]Ordered By: Kvng Dos Santos on 04-16-2023 Ketones (U) [Mass/Vol] Negative Negative [facility] Magnesiumon 04-16-2023 Magnesium [Mass/Vol] 2.3 mg/dL Normal 1.9-2.7 [facility] Comment on above: Result Comment: PERF ORMED BY: [place] [address] PATHOLOGIST CASHIER HOST/HOSTESS MOOK BROWN M.D. Performed By: #### R MONISHA FERNÁNDEZ REDRALeann AMAYA REDRAW K #### [address] Nitrite Test strip Ql (U)Ord ered By: Kvng Dos Santos on 04-16-2023 Nitrite Ql (U) Negative Negative [facility] Protein Auto test strip (U) [Mass/Vol]Ordered By: Kvng Dos Santos on 04-16-2023 Protein (U) [Mass/Vol] 300 mg/dL Negative [facility] Sodium [Moles/volume] in Uri neOrdered By: vKng Dos Santos on 04-16-2023 Sodium (U) [Moles/Vol] 67.0 mmol/L [facility] Comment on above: No reference range e stablished Sodium, Urineon 04-16-2023 Sodium (U) [Moles/Vol] 67.0 mmol/L Normal [facility] Comment on above: Result Comment: No r eference range established Performed By: #### U JESSICA UJLIEN #### [facility] [address] Specific gravity Auto test s trip (U) [Rel density]Ordered By: Kvng Dos Santos on 04-16-2023 Specific gravity (U) [Rel density] 1.017 1.001-1.03 0 [facility] Urine bacteria detection by automated methodOrdered By: Kvng Dos Santos on 04-16-2023 Bacteria Auto Ql (U) None seen None Seen [facility] Urine clarity by refractomet ry automatedOrdered By: Kvng Dos Santos on 04-16-2023 Clarity Refractometry automated (U) Clear Clear [facility] Urine glucose measurement by automated test strip (mass/volume)Ordered By: Kvng Dos Santos on 04-16-2023 Glucose Auto test strip (U) [Mass/Vol] >=1000 mg/dL Normal [facility] Urine hemoglobin detection b y automated test stripOrdered By: Kvng Dos Santos on 04-16-2023 Hemoglobin Auto test strip Ql (U) Negative Negative [facility] Urine leukocyte esterase det ection by automated test stripOrdered By: Kvng Dos Santos on 04-16-2023 Leukocyte esterase Auto test strip Ql (U) Negative Negative [facility] Urobilinogen Auto test strip (U) [Mass/Vol]Ordered By: Kvng Dos Santos on 04-16-2023 Urobilinogen (U) [Mass/Vol] Normal mg/dL Normal [facility] pH Auto test strip (U)Ordere d By: Kvng Dos Santos on 04-16-2023 pH (U) 6.5 [pH] 5.0-9.0 [facility] OSMOLALITY URINEon 3 Osmolality, Urine 330 mOsmol/kg Normal [facility] Comment on above: Result Comment: 24 h r : 300 - 900 Random: 50 - 1400 After 12hr fluid restriction: >850 Performed By: #### P OCGLUC #### [facility] [address] [place] [address] Dr. Spring Nash BNPon 03-09-2023 Natriuretic peptide B (Bld) [Mass/Vol] 1950.0 pg/mL Critically high <=900.0 [facility] Comment on above: Performed By: #### B MP #### [facility] [address] [place] [address] Dr. Spring Nash CBC AUTO DIFFon 03-09-2023 BASO # 0.0 103/ul Normal 0.0-0.1 [facility] Comment on above: Performed By: #### C MP, HSTROPN, BNP #### [facility] [address] [place] [address] Dr. Spring Nash Basophils/100 WBC (Bld) 0.3 % Normal 0.2-2.0 [facility] Comment on above: Performed By: #### C MP, HSTROPN, BNP #### [facility] [address] [place] [address] Dr. Spring Nash EO # 0.3 103/ul Normal 0.0-0.7 [facility] Comment on above: Performed By: #### C MP, HSTROPN, BNP #### [facility] [address] [place] [address] Dr. Spring Nash Eosinophils/100 WBC (Bld) 5.9 % Normal 0.9-7.0 [facility] Comment on above: Performed By: #### C MP, HSTROPN, BNP #### [facility] [address] [place] [address] Dr. Spring Nash Erythrocyte distribution width (RBC) [Ratio] 15.6 % Critically high 11.0-15.0 [facility] Comment on above: Performed By: #### C MP, HSTROPN, BNP #### [facility] [address] [place] [address] Dr. Spring Nash Hematocrit (Bld) [Volume fraction] 31.4 % Critically low 42.0-54.0 [facility] Comment on above: Performed By: #### C MP, HSTROPN, BNP #### [facility] [address] [place] [address] Dr. Spring Nash Hemoglobin (Bld) [Mass/Vol] 10.0 g/dL Critically low 14.0-18.0 [facility] Comment on above: Performed By: #### C MP, HSTROPN, BNP #### [facility] [address] [place] [address] Dr. Spring Nash IG # 0.02 10e3/ul Normal 0.00-0.03 [facility] Comment on above: Performed By: #### C MP, HSTROPN, BNP #### [facility] [address] [place] [address] Dr. Spring Nash IG % 0.3 % Normal 0.0-0.5 [facility] Comment on above: Performed By: #### C MP, HSTROPN, BNP #### [facility] [address] [place] [address] Dr. Spring Nash LYMPH # 1.0 103/ul Critically low 1.2-3.8 [facility] Comment on above: Performed By: #### C MP, HSTROPN, BNP #### [facility] [address] [place] [address] Dr. Spring Nash Lymphocytes/100 WBC (Bld) 17.6 % Critically low 20.5-60.0 [facility] Comment on above: Performed By: #### C MP, HSTROPN, BNP #### [facility] [address] [place] [address] Dr. Spring Nash MANUAL DIFF REQ NO Normal [facility] Comment on above: Performed By: #### C MP, HSTROPN, BNP #### [facility] [address] [place] [address] Dr. Spring Nash MCH (RBC) [Entitic mass] 29.3 pg Normal 25.9-34.0 [facility] Comment on above: Performed By: #### C MP, HSTROPN, BNP #### [facility] [address] [place] [address] Dr. Spring Nash MCHC (RBC) [Mass/Vol] 31.8 g/dL Normal 29.9-35.2 [facility] Comment on above: Performed By: #### C MP, HSTROPN, BNP #### [facility] [address] [place] [address] Dr. Spring Nash MCV (RBC) [Entitic vol] 92.1 fL Normal 80.0-94.0 [facility] Comment on above: Performed By: #### C MP, HSTROPN, BNP #### [facility] [address] [place] [address] Dr. Spring Nash MONO # 0.6 103/ul Normal 0.3-0.8 [facility] Comment on above: Performed By: #### C MP, HSTROPN, BNP #### [facility] [address] [place] [address] Dr. Spring Nash Monocytes/100 WBC (Bld) 9.9 % Normal 1.7-12.0 [facility] Comment on above: Performed By: #### C MP, HSTROPN, BNP #### [facility] [address] [place] [address] Dr. Spring Nash NEUT # 3.8 103/ul Normal 1.4-6.5 [facility] Comment on above: Performed By: #### C MP, HSTROPN, BNP #### [facility] [address] [place] [address] Dr. Spring Nash Neutrophils/100 WBC (Bld) 66.0 % Normal 43.0-75.0 [facility] Comment on above: Performed By: #### C MP, HSTROPN, BNP #### [facility] [address] [place] [address] Dr. Spring Nash Platelet mean volume (Bld) [Entitic vol] 11.6 fL Normal 9.5-13.5 [facility] Comment on above: Performed By: #### C MP, HSTROPN, BNP #### [facility] [address] [place] [address] Dr. Spring Nash PLT 213 103/ul Normal 150-450 [facility] Comment on above: Performed By: #### C ROSITA VERDETRKRUNAL, BNP #### [facility] [address] [address] [address] Spring Nash RBC 3.41 106/ul Critically low 4.70-6.10 [facility] Comment on above: Performed By: #### C MEHREEN HSTROPN, BNP #### [facility] [address] [address] [address] Spring Nash WBC 5.7 103/ul Normal 4.0-11.0 [facility] Comment on above: Performed By: #### C ROSITA VERDETRKRUNAL, BNP #### [facility] [address] [address] [address] Spring Nash POINT OF CARE GLUCOSEon 02-12 Glucose [Mass/Vol] 233 mg/dL Critically high 74-106 [facility] Comment on above: Performed By: #### B MP #### [facility] [address] [place] [address] Dr. Spring Nash Glucose [Mass/Vol] 129 mg/dL Critically high 74-106 [facility] Comment on above: Performed By: #### C SHAUN VERDE, BNP #### [facility] [address] [place] [address] Dr. Spring Nash PROF 14(COMP METB)on 023 Albumin [Mass/Vol] 2.5 g/dL Critically low 3.4-5.0 [facility] Comment on above: Performed By: #### B MP #### [facility] [address] [place] [address] Dr. Spring Nash Albumin/Globulin [Mass ratio] 0.8 {ratio} Normal [facility] Comment on above: Performed By: #### B MP #### [facility] [address] [address] [address] Spring Nash ALP [Catalytic activity/Vol] 105 U/L Normal 46-116 [facility] Comment on above: Performed By: #### B MP #### [facility] [address] [address] [address] Spring Nash ALT [Catalytic activity/Vol] 18 U/L Normal 16-63 [facility] Comment on above: Performed By: #### B MP #### [facility] [address] [address] [address] Spring Nash Anion gap [Moles/Vol] 10.3 mmol/L Normal [facility] Comment on above: Performed By: #### B MP #### [facility] [address] [address] [address] Spring Nash AST [Catalytic activity/Vol] 14 U/L Critically low 15-37 [facility] Comment on above: Performed By: #### B MP #### [facility] [address] [place] [address] Dr. Spring Nash Bilirubin [Mass/Vol] 0.3 mg/dL Normal 0.2-1.0 [facility] Comment on above: Performed By: #### B MP #### [facility] [address] [address] [address] Spring Nash Calcium [Mass/Vol] 8.4 mg/dL Critically low 8.5-10.1 [facility] Comment on above: Performed By: #### B MP #### [facility] [address] [place] [address] Dr. Spring Nash Chloride [Moles/Vol] 106 mmol/L Normal 98-107 [facility] Comment on above: Performed By: #### B MP #### [facility] [address] [place] [address] Dr. Spring Nash CO2 [Moles/Vol] 30.2 mmol/L Normal 21.0-32.0 [facility] Comment on above: Performed By: #### B MP #### [facility] [address] [address] [address] Spring Nash Creatinine [Mass/Vol] 2.95 mg/dL Critically high 0.70-1.30 [facility] Comment on above: Performed By: #### B MP #### [facility] [address] [address] [address] Spring Nash EGFR-AF TURKISH 27 mL/min/1.73m2 Critically low >=60 [facility] Comment on above: Performed By: #### B MP #### [facility] [address] [address] [address] Spring Nash EGFR-NON AF TURKISH 23 mL/min/1.73m2 Critically low >=60 [facility] Comment on above: Performed By: #### B MP #### [facility] [address] [address] [address] Spring Nash Globulin (S) [Mass/Vol] 3.2 g/dL Normal [facility] Comment on above: Performed By: #### B MP #### [facility] [address] [address] [address] Spring Nash Glucose [Mass/Vol] 153 mg/dL Critically high 74-106 [facility] Comment on above: Performed By: #### B MP #### [facility] [address] [address] [address] Spring Nash Potassium [Moles/Vol] 4.5 mmol/L Normal 3.5-5.1 [facility] Comment on above: Performed By: #### B MP #### [facility] [address] [address] [address] Spring Nash Protein [Mass/Vol] 5.7 g/dL Critically low 6.4-8.2 [facility] Comment on above: Performed By: #### B MP #### [facility] [address] [address] [address] Spring Nash Sodium [Moles/Vol] 142 mmol/L Normal 136-145 [facility] Comment on above: Performed By: #### B MP #### [facility] [address] [address] [address] Spring Nash Urea nitrogen [Mass/Vol] 50.0 mg/dL Critically high 7.0-18.0 [facility] Comment on above: Performed By: #### B MP #### [facility] [address] [address] [address] Spring Nash Urea nitrogen/Creatinine [Mass ratio] 16.9 mg/mg Normal [facility] Comment on above: Performed By: #### B MP #### [facility] [address] [place] [address] Dr. Spring Nash BNPon 03-08-2023 Natriuretic peptide B (Bld) [Mass/Vol] 2675.0 pg/mL Critically high <=900.0 [facility] Comment on above: Performed By: #### P OCGLUC #### [facility] [address] [place] [address] Dr. Spring Nash CBC AUTO DIFFon 03-08-2023 BASO # 0.0 103/ul Normal 0.0-0.1 [facility] Comment on above: Performed By: #### C MP, HSTROPN, BNP #### [facility] [address] [place] [address] Dr. Spring Nash Basophils/100 WBC (Bld) 0.5 % Normal 0.2-2.0 [facility] Comment on above: Performed By: #### C MP, HSTROPN, BNP #### [facility] [address] [place] [address] Dr. Spring Nash EO # 0.4 103/ul Normal 0.0-0.7 [facility] Comment on above: Performed By: #### C MP, HSTROPN, BNP #### [facility] [address] [place] [address] Dr. Spring Nash Eosinophils/100 WBC (Bld) 5.3 % Normal 0.9-7.0 [facility] Comment on above: Performed By: #### C MP, HSTROPN, BNP #### [facility] [address] [place] [address] Dr. Spring Nash Erythrocyte distribution width (RBC) [Ratio] 15.5 % Critically high 11.0-15.0 [facility] Comment on above: Performed By: #### C MP, HSTROPN, BNP #### [facility] [address] [place] [address] Dr. Spring Nash Hematocrit (Bld) [Volume fraction] 30.5 % Critically low 42.0-54.0 [facility] Comment on above: Performed By: #### C MP, HSTROPN, BNP #### [facility] [address] [place] [address] Dr. Spring Nash Hemoglobin (Bld) [Mass/Vol] 9.7 g/dL Critically low 14.0-18.0 [facility] Comment on above: Performed By: #### C MP, HSTROPN, BNP #### [facility] [address] [place] [address] Dr. Spring Nash IG # 0.03 10e3/ul Normal 0.00-0.03 [facility] Comment on above: Performed By: #### C MP, HSTROPN, BNP #### [facility] [address] [place] [address] Dr. Spring Nash IG % 0.5 % Normal 0.0-0.5 [facility] Comment on above: Performed By: #### C MP, HSTROPN, BNP #### [facility] [address] [place] [address] Dr. Spring Nash LYMPH # 1.0 103/ul Critically low 1.2-3.8 [facility] Comment on above: Performed By: #### C MP, HSTROPN, BNP #### [facility] [address] [place] [address] Dr. Spring Nash Lymphocytes/100 WBC (Bld) 14.9 % Critically low 20.5-60.0 [facility] Comment on above: Performed By: #### C MP, HSTROPN, BNP #### [facility] [address] [place] [address] Dr. Spring Nash MANUAL DIFF REQ NO Normal [facility] Comment on above: Performed By: #### C MP, HSTROPN, BNP #### [facility] [address] [place] [address] Dr. Spring Nash MCH (RBC) [Entitic mass] 29.6 pg Normal 25.9-34.0 [facility] Comment on above: Performed By: #### C MP, HSTROPN, BNP #### [facility] [address] [place] [address] Dr. Spring Nash MCHC (RBC) [Mass/Vol] 31.8 g/dL Normal 29.9-35.2 [facility] Comment on above: Performed By: #### C MP, HSTROPN, BNP #### [facility] [address] [place] [address] Dr. Spring Nash MCV (RBC) [Entitic vol] 93.0 fL Normal 80.0-94.0 [facility] Comment on above: Performed By: #### C MP, HSTROPN, BNP #### [facility] [address] [place] [address] Dr. Spring Nash MONO # 0.5 103/ul Normal 0.3-0.8 [facility] Comment on above: Performed By: #### C MP, HSTROPN, BNP #### [facility] [address] [place] [address] Dr. Spring Nash Monocytes/100 WBC (Bld) 7.9 % Normal 1.7-12.0 [facility] Comment on above: Performed By: #### C MP, HSTROPN, BNP #### [facility] [address] [place] [address] Dr. Spring Nash NEUT # 4.7 103/ul Normal 1.4-6.5 [facility] Comment on above: Performed By: #### C MP, HSTROPN, BNP #### [facility] [address] [place] [address] Dr. Spring Nash Neutrophils/100 WBC (Bld) 70.9 % Normal 43.0-75.0 [facility] Comment on above: Performed By: #### C MP, HSTROPN, BNP #### [facility] [address] [place] [address] Dr. Spring Nash Platelet mean volume (Bld) [Entitic vol] 11.7 fL Normal 9.5-13.5 [facility] Comment on above: Performed By: #### C MP, HSTROPN, BNP #### [facility] [address] [address] [address] Spring Nash PLT 204 103/ul Normal 150-450 [facility] Comment on above: Performed By: #### C MP, HSTROPN, BNP #### [facility] [address] [address] [address] Spring Nash RBC 3.28 106/ul Critically low 4.70-6.10 [facility] Comment on above: Performed By: #### C MP, HSTROPN, BNP #### [facility] [address] [address] [address] Spring Nash WBC 6.6 103/ul Normal 4.0-11.0 [facility] Comment on above: Performed By: #### C MP, HSTROPN, BNP #### [facility] [address] [place] [address] Dr. Spring Nash POINT OF CARE GLUCOSEon 02-12 Glucose [Mass/Vol] 273 mg/dL Critically high 74-106 [facility] Comment on above: Performed By: #### P OCGLUC #### [facility] [address] [place] [address] Dr. Spring Nash Glucose [Mass/Vol] 194 mg/dL Critically high 74-106 [facility] Comment on above: Performed By: #### B MP #### [facility] [address] [place] [address] Dr. Spring Nash Glucose [Mass/Vol] 226 mg/dL Critically high 74-106 [facility] Comment on above: Performed By: #### P OCGLUC #### [facility] [address] [place] [address] Dr. Spring Nash PROF 14(COMP METB)on 023 Albumin [Mass/Vol] 2.5 g/dL Critically low 3.4-5.0 [facility] Comment on above: Performed By: #### P OCGLUC #### [facility] [address] [place] [address] Dr. Spring Nash Albumin/Globulin [Mass ratio] 0.8 {ratio} Normal [facility] Comment on above: Performed By: #### P OCGLUC #### [facility] [address] [address] [address] Spring Nash ALP [Catalytic activity/Vol] 114 U/L Normal 46-116 [facility] Comment on above: Performed By: #### P OCGLUC #### [facility] [address] [address] [address] Spring Nash ALT [Catalytic activity/Vol] 15 U/L Critically low 16-63 [facility] Comment on above: Performed By: #### P OCGLUC #### [facility] [address] [address] [address] Spring Nash Anion gap [Moles/Vol] 12.2 mmol/L Normal [facility] Comment on above: Performed By: #### P OCGLUC #### [facility] [address] [place] [address] Dr. Spring Nash AST [Catalytic activity/Vol] 14 U/L Critically low 15-37 [facility] Comment on above: Performed By: #### P OCGLUC #### [facility] [address] [place] [address] Dr. Spring aNsh Bilirubin [Mass/Vol] 0.3 mg/dL Normal 0.2-1.0 [facility] Comment on above: Performed By: #### P OCGLUC #### [facility] [address] [address] [address] Spring Nash Calcium [Mass/Vol] 8.4 mg/dL Critically low 8.5-10.1 [facility] Comment on above: Performed By: #### P OCGLUC #### [facility] [address] [address] [address] Spring Nash Chloride [Moles/Vol] 106 mmol/L Normal 98-107 [facility] Comment on above: Performed By: #### P OCGLUC #### [facility] [address] [address] [address] Spring Nash CO2 [Moles/Vol] 27.3 mmol/L Normal 21.0-32.0 [facility] Comment on above: Performed By: #### P OCGLUC #### [facility] [address] [address] [address] Spring Nash Creatinine [Mass/Vol] 3.20 mg/dL Critically high 0.70-1.30 [facility] Comment on above: Performed By: #### P OCGLUC #### [facility] [address] [address] [address] Spring Nash EGFR-AF TURKISH 25 mL/min/1.73m2 Critically low >=60 [facility] Comment on above: Performed By: #### P OCGLUC #### [facility] [address] [address] [address] Spring Nash EGFR-NON AF TURKISH 21 mL/min/1.73m2 Critically low >=60 [facility] Comment on above: Performed By: #### P OCGLUC #### [facility] [address] [address] [address] Spring Nash Globulin (S) [Mass/Vol] 3.1 g/dL Normal [facility] Comment on above: Performed By: #### P OCGLUC #### [facility] [address] [address] [address] Spring Nash Glucose [Mass/Vol] 207 mg/dL Critically high 74-106 [facility] Comment on above: Performed By: #### P OCGLUC #### [facility] [address] [address] [address] Spring Nahs Potassium [Moles/Vol] 4.5 mmol/L Normal 3.5-5.1 [facility] Comment on above: Performed By: #### P OCGLUC #### [facility] [address] [address] [address] Spring Nash Protein [Mass/Vol] 5.6 g/dL Critically low 6.4-8.2 [facility] Comment on above: Performed By: #### P OCGLUC #### [facility] [address] [address] [address] Spring Nash Sodium [Moles/Vol] 141 mmol/L Normal 136-145 [facility] Comment on above: Performed By: #### P OCGLUC #### [facility] [address] [place] [address] Dr. Spring Nash Urea nitrogen [Mass/Vol] 52.0 mg/dL Critically high 7.0-18.0 [facility] Comment on above: Performed By: #### P OCGLUC #### [facility] [address] [place] [address] Dr. Spring Nash Urea nitrogen/Creatinine [Mass ratio] 16.2 mg/mg Normal [facility] Comment on above: Performed By: #### P OCGLUC #### [facility] [address] [place] [address] Dr. Spring Nash BNPon 03-07-2023 Natriuretic peptide B (Bld) [Mass/Vol] 4010.0 pg/mL Critically high <=900.0 [facility] Comment on above: Performed By: #### C MP #### [facility] [address] [place] [address] Dr. Spring Nash CBC AUTO DIFFon 03-07-2023 BASO # 0.0 103/ul Normal 0.0-0.1 [facility] Comment on above: Performed By: #### P OCGLUC #### [facility] [address] [place] [address] Dr. Spring Nash Basophils/100 WBC (Bld) 0.3 % Normal 0.2-2.0 [facility] Comment on above: Performed By: #### P OCGLUC #### [facility] [address] [place] [address] Dr. Spring Nash EO # 0.3 103/ul Normal 0.0-0.7 [facility] Comment on above: Performed By: #### P OCGLUC #### [facility] [address] [place] [address] Dr. Spring Nash Eosinophils/100 WBC (Bld) 5.2 % Normal 0.9-7.0 [facility] Comment on above: Performed By: #### P OCGLUC #### [facility] [address] [place] [address] Dr. Spring Nash Erythrocyte distribution width (RBC) [Ratio] 15.7 % Critically high 11.0-15.0 [facility] Comment on above: Performed By: #### P OCGLUC #### [facility] [address] [place] [address] Dr. Spring Nash Hematocrit (Bld) [Volume fraction] 31.0 % Critically low 42.0-54.0 [facility] Comment on above: Performed By: #### P OCGLUC #### [facility] [address] [place] [address] Dr. Spring Nash Hemoglobin (Bld) [Mass/Vol] 9.6 g/dL Critically low 14.0-18.0 [facility] Comment on above: Performed By: #### P OCGLUC #### [facility] [address] [place] [address] Dr. Spring Nash IG # 0.03 10e3/ul Normal 0.00-0.03 [facility] Comment on above: Performed By: #### P OCGLUC #### [facility] [address] [place] [address] Dr. Spring Nash IG % 0.5 % Normal 0.0-0.5 [facility] Comment on above: Performed By: #### P OCGLUC #### [facility] [address] [place] [address] Dr. Spring Nash LYMPH # 0.8 103/ul Critically low 1.2-3.8 [facility] Comment on above: Performed By: #### P OCGLUC #### [facility] [address] [place] [address] Dr. Spring Nash Lymphocytes/100 WBC (Bld) 11.8 % Critically low 20.5-60.0 [facility] Comment on above: Performed By: #### P OCGLUC #### [facility] [address] [place] [address] Dr. Spring Nash MANUAL DIFF REQ NO Normal [facility] Comment on above: Performed By: #### P OCGLUC #### [facility] [address] [place] [address] Dr. Spring Nash MCH (RBC) [Entitic mass] 29.1 pg Normal 25.9-34.0 [facility] Comment on above: Performed By: #### P OCGLUC #### [facility] [address] [place] [address] Dr. Spring Nash MCHC (RBC) [Mass/Vol] 31.0 g/dL Normal 29.9-35.2 [facility] Comment on above: Performed By: #### P OCGLUC #### [facility] [address] [place] [address] Dr. Spring Nash MCV (RBC) [Entitic vol] 93.9 fL Normal 80.0-94.0 [facility] Comment on above: Performed By: #### P OCGLUC #### [facility] [address] [place] [address] Dr. Spring Nash MONO # 0.5 103/ul Normal 0.3-0.8 [facility] Comment on above: Performed By: #### P OCGLUC #### [facility] [address] [place] [address] Dr. Spring Nash Monocytes/100 WBC (Bld) 7.4 % Normal 1.7-12.0 [facility] Comment on above: Performed By: #### P OCGLUC #### [facility] [address] [place] [address] Dr. Spring Nash NEUT # 4.9 103/ul Normal 1.4-6.5 [facility] Comment on above: Performed By: #### P OCGLUC #### [facility] [address] [place] [address] Dr. Spring Nash Neutrophils/100 WBC (Bld) 74.8 % Normal 43.0-75.0 [facility] Comment on above: Performed By: #### P OCGLUC #### [facility] [address] [place] [address] Dr. Spring Nash Platelet mean volume (Bld) [Entitic vol] 11.7 fL Normal 9.5-13.5 [facility] Comment on above: Performed By: #### P OCGLUC #### [facility] [address] [address] [address] Spring Nash PLT 195 103/ul Normal 150-450 [facility] Comment on above: Performed By: #### P OCGLUC #### [facility] [address] [address] [address] Spring Nash RBC 3.30 106/ul Critically low 4.70-6.10 [facility] Comment on above: Performed By: #### P OCGLUC #### [facility] [address] [address] [address] Spring Nash WBC 6.6 103/ul Normal 4.0-11.0 [facility] Comment on above: Performed By: #### P OCGLUC #### [facility] [address] [address] [address] Spring Nash CHLORIDE URINE RANDOMon 02-12 Chloride, Urine 106 mmol/L Normal Not Estab. [facility] Comment on above: Performed By: #### P OCGLUC #### [facility] [address] [address] [address] Spring Nash POINT OF CARE GLUCOSEon 02-12 Glucose [Mass/Vol] 238 mg/dL Critically high 74-106 [facility] Comment on above: Performed By: #### C MP, HSTROPN, BNP #### [facility] [address] [address] [address] Spring Nash Glucose [Mass/Vol] 215 mg/dL Critically high 74-106 [facility] Comment on above: Performed By: #### C MP, HSTROPN, BNP #### [facility] [address] [address] [address] Spring Nash Glucose [Mass/Vol] 181 mg/dL Critically high -106 [facility] Comment on above: Performed By: #### C MP, HSTROPN, BNP #### [facility] [address] [address] [address] Spring Nash PROF 14(COMP METB)on 023 Albumin [Mass/Vol] 2.4 g/dL Critically low 3.4-5.0 [facility] Comment on above: Performed By: #### C MP #### [facility] [address] [address] [address] Spring Nash Albumin/Globulin [Mass ratio] 0.7 {ratio} Normal [facility] Comment on above: Performed By: #### C MP #### [facility] [address] [address] [address] Spring Nash ALP [Catalytic activity/Vol] 102 U/L Normal 46-116 [facility] Comment on above: Performed By: #### C MP #### [facility] [address] [place] [address] Dr. Spring Nash ALT [Catalytic activity/Vol] 18 U/L Normal 16-63 [facility] Comment on above: Performed By: #### C MP #### [facility] [address] [place] [address] Dr. Spring Nash Anion gap [Moles/Vol] 13.1 mmol/L Normal [facility] Comment on above: Performed By: #### C MP #### [facility] [address] [place] [address] Dr. Spring Nash AST [Catalytic activity/Vol] 13 U/L Critically low 15-37 [facility] Comment on above: Performed By: #### C MP #### [facility] [address] [place] [address] Dr. Spring Nash Bilirubin [Mass/Vol] 0.3 mg/dL Normal 0.2-1.0 [facility] Comment on above: Performed By: #### C MP #### [facility] [address] [place] [address] Dr. Spring Nash Calcium [Mass/Vol] 8.1 mg/dL Critically low 8.5-10.1 [facility] Comment on above: Performed By: #### C MP #### [facility] [address] [place] [address] Dr. Spring Nash Chloride [Moles/Vol] 108 mmol/L Critically high 98-107 [facility] Comment on above: Performed By: #### C MP #### [facility] [address] [address] [address] Spring Nash CO2 [Moles/Vol] 24.8 mmol/L Normal 21.0-32.0 [facility] Comment on above: Performed By: #### C MP #### [facility] [address] [address] [address] Spring Nash Creatinine [Mass/Vol] 3.39 mg/dL Critically high 0.70-1.30 [facility] Comment on above: Performed By: #### C MP #### [facility] [address] [address] [address] Spring Nash EGFR-AF TURKISH 23 mL/min/1.73m2 Critically low >=60 [facility] Comment on above: Performed By: #### C MP #### [facility] [address] [address] [address] Spring Nash EGFR-NON AF TURKISH 19 mL/min/1.73m2 Critically low >=60 [facility] Comment on above: Performed By: #### C MP #### [facility] [address] [address] [address] Spring Nash Globulin (S) [Mass/Vol] 3.4 g/dL Normal [facility] Comment on above: Performed By: #### C MP #### [facility] [address] [address] [address] Spring Nash Glucose [Mass/Vol] 101 mg/dL Normal 74-106 [facility] Comment on above: Performed By: #### C MP #### [facility] [address] [address] [address] Spring Nash Potassium [Moles/Vol] 4.9 mmol/L Normal 3.5-5.1 [facility] Comment on above: Performed By: #### C MP #### [facility] [address] [address] [address] Spring Nash Protein [Mass/Vol] 5.8 g/dL Critically low 6.4-8.2 [facility] Comment on above: Performed By: #### C MP #### [facility] [address] [address] [address] Spring Nash Sodium [Moles/Vol] 141 mmol/L Normal 136-145 [facility] Comment on above: Performed By: #### C MP #### [facility] [address] [place] [address] Dr. Spring Nash Urea nitrogen [Mass/Vol] 53.0 mg/dL Critically high 7.0-18.0 [facility] Comment on above: Performed By: #### C MP #### [facility] [address] [place] [address] Dr. Spring Nash Urea nitrogen/Creatinine [Mass ratio] 15.6 mg/mg Normal [facility] Comment on above: Performed By: #### C MP #### [facility] [address] [place] [address] Dr. Spring Nash BNPon 03-06-2023 Natriuretic peptide B (Bld) [Mass/Vol] 5021.0 pg/mL Critically high <=900.0 [facility] Comment on above: Performed By: #### B MP #### [facility] [address] [place] [address] Dr. Spring Nash CALCIUM URINEon 03-06-2023 UR CALCIUM <5.0 Critically low 5.1-21.0 [facility] Comment on above: Performed By: #### P OCGLUC #### [facility] [address] [place] [address] Dr. Spring Nash CBC AUTO DIFFon 03-06-2023 BASO # 0.0 103/ul Normal 0.0-0.1 [facility] Comment on above: Performed By: #### P OCGLUC #### [facility] [address] [place] [address] Dr. Spring Nash Basophils/100 WBC (Bld) 0.3 % Normal 0.2-2.0 [facility] Comment on above: Performed By: #### P OCGLUC #### [facility] [address] [place] [address] Dr. Spring Nash EO # 0.4 103/ul Normal 0.0-0.7 [facility] Comment on above: Performed By: #### P OCGLUC #### [facility] [address] [place] [address] Dr. Spring Nash Eosinophils/100 WBC (Bld) 5.6 % Normal 0.9-7.0 [facility] Comment on above: Performed By: #### P OCGLUC #### [facility] [address] [place] [address] Dr. Spring Nash Erythrocyte distribution width (RBC) [Ratio] 15.6 % Critically high 11.0-15.0 [facility] Comment on above: Performed By: #### P OCGLUC #### [facility] [address] [place] [address] Dr. Spring Nash Hematocrit (Bld) [Volume fraction] 30.7 % Critically low 42.0-54.0 [facility] Comment on above: Performed By: #### P OCGLUC #### [facility] [address] [place] [address] Dr. Spring Nash Hemoglobin (Bld) [Mass/Vol] 9.4 g/dL Critically low 14.0-18.0 [facility] Comment on above: Performed By: #### P OCGLUC #### [facility] [address] [place] [address] Dr. Spring Nash IG # 0.04 10e3/ul Critically high 0.00-0.03 [facility] Comment on above: Performed By: #### P OCGLUC #### [facility] [address] [place] [address] Dr. Spring Nash IG % 0.6 % Critically high 0.0-0.5 [facility] Comment on above: Performed By: #### P OCGLUC #### [facility] [address] [place] [address] Dr. Spring Nash LYMPH # 0.7 103/ul Critically low 1.2-3.8 [facility] Comment on above: Performed By: #### P OCGLUC #### [facility] [address] [place] [address] Dr. Spring Nash Lymphocytes/100 WBC (Bld) 10.7 % Critically low 20.5-60.0 [facility] Comment on above: Performed By: #### P OCGLUC #### [facility] [address] [place] [address] Dr. Spring Nash MANUAL DIFF REQ NO Normal [facility] Comment on above: Performed By: #### P OCGLUC #### [facility] [address] [place] [address] Dr. Spring Nash MCH (RBC) [Entitic mass] 29.5 pg Normal 25.9-34.0 [facility] Comment on above: Performed By: #### P OCGLUC #### [facility] [address] [place] [address] Dr. Spring Nash MCHC (RBC) [Mass/Vol] 30.6 g/dL Normal 29.9-35.2 [facility] Comment on above: Performed By: #### P OCGLUC #### [facility] [address] [place] [address] Dr. Spring Nash MCV (RBC) [Entitic vol] 96.2 fL Critically high 80.0-94 .0 [facility] Comment on above: Performed By: #### P OCGLUC #### [facility] [address] [place] [address] Dr. Spring Nash MONO # 0.6 103/ul Normal 0.3-0.8 [facility] Comment on above: Performed By: #### P OCGLUC #### [facility] [address] [place] [address] Dr. Spring Nash Monocytes/100 WBC (Bld) 8.2 % Normal 1.7-12.0 [facility] Comment on above: Performed By: #### P OCGLUC #### [facility] [address] [place] [address] Dr. Spring Nash NEUT # 5.1 103/ul Normal 1.4-6.5 [facility] Comment on above: Performed By: #### P OCGLUC #### [facility] [address] [place] [address] Dr. Spring Nash Neutrophils/100 WBC (Bld) 74.6 % Normal 43.0-75.0 [facility] Comment on above: Performed By: #### P OCGLUC #### [facility] [address] [address] [address] Spring Nash Platelet mean volume (Bld) [Entitic vol] 11.6 fL Normal 9.5-13.5 [facility] Comment on above: Performed By: #### P OCGLUC #### [facility] [address] [address] [address] Spring Nash PLT 176 103/ul Normal 150-450 [facility] Comment on above: Performed By: #### P OCGLUC #### [facility] [address] [address] [address] Spring Nash RBC 3.19 106/ul Critically low 4.70-6.10 [facility] Comment on above: Performed By: #### P OCGLUC #### [facility] [address] [address] [address] Spring Nash WBC 6.8 103/ul Normal 4.0-11.0 [facility] Comment on above: Performed By: #### P OCGLUC #### [facility] [address] [place] [address] Dr. Spring Nash CREATININE URINEon 3 URINE CREAT 20.22 mg/dL Normal 20.00-300. 00 [facility] Comment on above: Performed By: #### C MP, HSTROPN, BNP #### [facility] [address] [place] [address] Dr. Spring Nash ECHO LIMITED STUDYon 023 ECHO LIMITED STUDY Patient: MELVI MINOR Exam Date: 03/06/2023 : 1970 Gender:M Ordering : TONY ESPITIAAUDRA Admission #: [id number] Family : SHAIKH Lana MORSE . Order #: [id number] CLICK HERE TO VIEW EXAM ECHOCARDIOGRAM REPORT [...] Left Atrium LA Volume Index (2D A2C): 097951 mm3 Left Atrium Systolic Dimension: 4.20 cm Mitral Valve Right Ventricle Aorta AO Root Diam: 3.10 cm Aortic Valve Tricuspid Valve Pulmonic Valve Right Atrium Dictated by: Jason Lord M.D. on 03/06/2023 at 16:49 Approved by: Jason Lord M.D. on 03/06/2023 at 16:54 Normal [facility] POINT OF CARE GLUCOSEon 05-2 Glucose [Mass/Vol] 372 mg/dL Critically high 74-106 [facility] Comment on above: Performed By: #### P OCGLUC #### [facility] [address] [place] [address] Dr. Spring Nash Glucose [Mass/Vol] 183 mg/dL Critically high 74-106 [facility] Comment on above: Performed By: #### P OCGLUC #### [facility] [address] [place] [address] Dr. Spring Nash Glucose [Mass/Vol] 118 mg/dL Critically high 74-106 [facility] Comment on above: Performed By: #### P OCGLUC #### [facility] [address] [place] [address] Dr. Spring Nash Glucose [Mass/Vol] 145 mg/dL Critically high 74-106 [facility] Comment on above: Performed By: #### P OCGLUC #### [facility] [address] [place] [address] Dr. Spring Nash POTASSIUM URINEon 03-06-2023 UR POTASSIUM 17.2 mmol/L Normal [facility] Comment on above: Performed By: #### C MP, HSTROPN, BNP #### [facility] [address] [place] [address] Dr. Spring Nash PROF 14(COMP METB)on 023 Albumin [Mass/Vol] 2.3 g/dL Critically low 3.4-5.0 [facility] Comment on above: Performed By: #### B MP #### [facility] [address] [place] [address] Dr. Spring Nash Albumin/Globulin [Mass ratio] 0.7 {ratio} Normal [facility] Comment on above: Performed By: #### B MP #### [facility] [address] [place] [address] Dr. Spring Nash ALP [Catalytic activity/Vol] 121 U/L Critically high 46-116 [facility] Comment on above: Performed By: #### B MP #### [facility] [address] [place] [address] Dr. Spring Nash ALT [Catalytic activity/Vol] 14 U/L Critically low 16-63 [facility] Comment on above: Performed By: #### B MP #### [facility] [address] [place] [address] Dr. Spring Nash Anion gap [Moles/Vol] 14.2 mmol/L Normal [facility] Comment on above: Performed By: #### B MP #### [facility] [address] [place] [address] Dr. Spring Nash AST [Catalytic activity/Vol] 13 U/L Critically low 15-37 [facility] Comment on above: Performed By: #### B MP #### [facility] [address] [place] [address] Dr. Spring Nash Bilirubin [Mass/Vol] 0.3 mg/dL Normal 0.2-1.0 [facility] Comment on above: Performed By: #### B MP #### [facility] [address] [place] [address] Dr. Spring Nash Calcium [Mass/Vol] 8.0 mg/dL Critically low 8.5-10.1 [facility] Comment on above: Performed By: #### B MP #### [facility] [address] [place] [address] Dr. Spring Nash CO2 [Moles/Vol] 22.5 mmol/L Normal 21.0-32.0 [facility] Comment on above: Performed By: #### B MP #### [facility] [address] [place] [address] Dr. Spring Nash Creatinine [Mass/Vol] 3.48 mg/dL Critically high 0.70-1.30 [facility] Comment on above: Performed By: #### B MP #### [facility] [address] [place] [address] Dr. Spring Nash EGFR-AF TURKISH 23 mL/min/1.73m2 Critically low >=60 [facility] Comment on above: Performed By: #### B MP #### [facility] [address] [place] [address] Dr. Spring Nash EGFR-NON AF TURKISH 19 mL/min/1.73m2 Critically low >=60 [facility] Comment on above: Performed By: #### B MP #### [facility] [address] [place] [address] Dr. Spring Nash Globulin (S) [Mass/Vol] 3.1 g/dL Normal [facility] Comment on above: Performed By: #### B MP #### [facility] [address] [place] [address] Dr. Spring Nash Glucose [Mass/Vol] 170 mg/dL Critically high 74-106 [facility] Comment on above: Performed By: #### B MP #### [facility] [address] [place] [address] Dr. Spring Nash Potassium [Moles/Vol] 4.7 mmol/L Normal 3.5-5.1 [facility] Comment on above: Performed By: #### B MP #### [facility] [address] [place] [address] Dr. Spring Nash Protein [Mass/Vol] 5.4 g/dL Critically low 6.4-8.2 [facility] Comment on above: Performed By: #### B MP #### [facility] [address] [place] [address] Dr. Spring Nash Urea nitrogen [Mass/Vol] 50.0 mg/dL Critically high 7.0-18.0 [facility] Comment on above: Performed By: #### B MP #### [facility] [address] [place] [address] Dr. Spring Nash Urea nitrogen/Creatinine [Mass ratio] 14.4 mg/mg Normal [facility] Comment on above: Performed By: #### B MP #### [facility] [address] [place] [address] Dr. Spring Nash PROF CHEM 8 (BAS METB)on Anion gap [Moles/Vol] 13.5 mmol/L Normal [facility] Comment on above: Performed By: #### B MP #### [facility] [address] [place] [address] Dr. Spring Nash Calcium [Mass/Vol] 7.8 mg/dL Critically low 8.5-10.1 [facility] Comment on above: Performed By: #### B MP #### [facility] [address] [place], [place] [id number] Dr. Spring Nash Chloride [Moles/Vol] 107 mmol/L Normal 98-107 [facility] Comment on above: Performed By: #### B MP #### [facility] [address] [address] [address] Spring Nash CO2 [Moles/Vol] 23.6 mmol/L Normal 21.0-32.0 [facility] Comment on above: Performed By: #### B MP #### [facility] [address] [address] [address] Spring Nash Creatinine [Mass/Vol] 3.60 mg/dL Critically high 0.70-1.30 [facility] Comment on above: Performed By: #### B MP #### [facility] [address] [place] [address] Dr. Spring Nash EGFR-AF TURKISH 22 mL/min/1.73m2 Critically low >=60 [facility] Comment on above: Performed By: #### B MP #### [facility] [address] [place] [address] Dr. Spring Nash EGFR-NON AF TURKISH 18 mL/min/1.73m2 Critically low >=60 [facility] Comment on above: Performed By: #### B MP #### [facility] [address] [place] [address] Dr. Spring Nash Glucose [Mass/Vol] 175 mg/dL Critically high 74-106 [facility] Comment on above: Performed By: #### B MP #### [facility] [address] [address] [address] Spring Nash Potassium [Moles/Vol] 5.1 mmol/L Normal 3.5-5.1 [facility] Comment on above: Performed By: #### B MP #### [facility] [address] [address] [address] Spring Nash Sodium [Moles/Vol] 139 mmol/L Normal 136-145 [facility] Comment on above: Performed By: #### B MP #### [facility] [address] [address] [address] Spring Nash Urea nitrogen [Mass/Vol] 48.0 mg/dL Critically high 7.0-18.0 [facility] Comment on above: Performed By: #### B MP #### [facility] [address] [place] [address] Dr. Spring Nash Urea nitrogen/Creatinine [Mass ratio] 13.3 mg/mg Normal [facility] Comment on above: Performed By: #### B MP #### [facility] [address] [address] [address] Spring Nash SODIUM RANDOM URINEon 2022 Sodium (U) [Moles/Vol] 106 mmol/L Critically high 30-90 [facility] Comment on above: Performed By: #### C MP, HSTROPN, BNP #### [facility] [address] [place] [address] Dr. Spring Nash VANCOMYCIN TROUGHon 03-06-20 VANCOMYCIN TROUGH 8.1 ug/ml Normal 5.0-20.0 [facility] Comment on above: Performed By: #### C MP #### [facility] [address] [place] [address] Dr. Spring Nash XR CHEST 2 Von [...] SAMANTHA MURPHY Date: 2023-03-06 12:19 Normal [facility] BNPon 03-05-2023 Natriuretic peptide B (Bld) [Mass/Vol] 5356.0 pg/mL Critically high <=900.0 [facility] Comment on above: Performed By: #### P OCGLUC #### [facility] [address] [place] [address] Dr. Spring Nash CBC AUTO DIFFon 03-05-2023 BASO # 0.0 103/ul Normal 0.0-0.1 [facility] Comment on above: Performed By: #### P OCGLUC #### [facility] [address] [place] [address] Dr. Spring Nash Basophils/100 WBC (Bld) 0.3 % Normal 0.2-2.0 [facility] Comment on above: Performed By: #### P OCGLUC #### [facility] [address] [place] [address] Dr. Spring Nash EO # 0.4 103/ul Normal 0.0-0.7 [facility] Comment on above: Performed By: #### P OCGLUC #### [facility] [address] [place] [address] Dr. Spring Nash Eosinophils/100 WBC (Bld) 5.7 % Normal 0.9-7.0 [facility] Comment on above: Performed By: #### P OCGLUC #### [facility] [address] [place] [address] Dr. Spring Nash Erythrocyte distribution width (RBC) [Ratio] 15.6 % Critically high 11.0-15.0 [facility] Comment on above: Performed By: #### P OCGLUC #### [facility] [address] [place] [address] Dr. Spring Nash Hematocrit (Bld) [Volume fraction] 28.9 % Critically low 42.0-54.0 [facility] Comment on above: Performed By: #### P OCGLUC #### [facility] [address] [place] [address] Dr. Spring Nash Hemoglobin (Bld) [Mass/Vol] 9.4 g/dL Critically low 14.0-18.0 [facility] Comment on above: Performed By: #### P OCGLUC #### [facility] [address] [place] [address] Dr. Spring Nash IG # 0.03 10e3/ul Normal 0.00-0.03 [facility] Comment on above: Performed By: #### P OCGLUC #### [facility] [address] [address] [address] Spring Nash IG % 0.4 % Normal 0.0-0.5 [facility] Comment on above: Performed By: #### P OCGLUC #### [facility] [address] [address] [address] Spring Nash LYMPH # 0.9 103/ul Critically low 1.2-3.8 [facility] Comment on above: Performed By: #### P OCGLUC #### [facility] [address] [address] [address] Spring Nash Lymphocytes/100 WBC (Bld) 11.5 % Critically low 20.5-60.0 [facility] Comment on above: Performed By: #### P OCGLUC #### [facility] [address] [address] [address] Spring Nash MANUAL DIFF REQ NO Normal [facility] Comment on above: Performed By: #### P OCGLUC #### [facility] [address] [address] [address] Spring Nash MCH (RBC) [Entitic mass] 29.8 pg Normal 25.9-34.0 [facility] Comment on above: Performed By: #### P OCGLUC #### [facility] [address] [address] [address] Spring Nash MCHC (RBC) [Mass/Vol] 32.5 g/dL Normal 29.9-35.2 [facility] Comment on above: Performed By: #### P OCGLUC #### [facility] [address] [address] [address] Spring Nash MCV (RBC) [Entitic vol] 91.7 fL Normal 80.0-94.0 [facility] Comment on above: Performed By: #### P OCGLUC #### [facility] [address] [address] [address] Spring Nsah MONO # 0.7 103/ul Normal 0.3-0.8 [facility] Comment on above: Performed By: #### P OCGLUC #### [facility] [address] [address] [address] Spring Nash Monocytes/100 WBC (Bld) 8.9 % Normal 1.7-12.0 [facility] Comment on above: Performed By: #### P OCGLUC #### [facility] [address] [address] [address] Spring Nash NEUT # 5.6 103/ul Normal 1.4-6.5 [facility] Comment on above: Performed By: #### P OCGLUC #### [facility] [address] [address] [address] Spring Nash Neutrophils/100 WBC (Bld) 73.2 % Normal 43.0-75.0 [facility] Comment on above: Performed By: #### P OCGLUC #### [facility] [address] [place] [address] Dr. Spring Nash Platelet mean volume (Bld) [Entitic vol] 11.8 fL Normal 9.5-13.5 [facility] Comment on above: Performed By: #### P OCGLUC #### [facility] [address] [place] [address] Dr. Spring Nash PLT 176 103/ul Normal 150-450 [facility] Comment on above: Performed By: #### P OCGLUC #### [facility] [address] [place] [address] Dr. Spring Nash RBC 3.15 106/ul Critically low 4.70-6.10 [facility] Comment on above: Performed By: #### P OCGLUC #### [facility] [address] [place] [address] Dr. Spring Nash WBC 7.6 103/ul Normal 4.0-11.0 [facility] Comment on above: Performed By: #### P OCGLUC #### [facility] [address] [place] [address] Dr. Spring Nash POINT OF CARE GLUCOSEon 05-2 Glucose [Mass/Vol] 272 mg/dL Critically high 74-106 [facility] Comment on above: Performed By: #### C MP, HSTROPN, BNP #### [facility] [address] [address] [address] Spirng Nash Glucose [Mass/Vol] 179 mg/dL Critically high 74-106 [facility] Comment on above: Performed By: #### P OCGLUC #### [facility] [address] [address] [address] Spring Nash Glucose [Mass/Vol] 136 mg/dL Critically high 74-106 [facility] Comment on above: Performed By: #### P OCGLUC #### [facility] [address] [address] [address] Spring Nash PROF 14(COMP METB)on 023 Albumin [Mass/Vol] 2.3 g/dL Critically low 3.4-5.0 [facility] Comment on above: Performed By: #### P OCGLUC #### [facility] [address] [place] [address] Dr. Spring Nash Albumin/Globulin [Mass ratio] 0.8 {ratio} Normal [facility] Comment on above: Performed By: #### P OCGLUC #### [facility] [address] [address] [address] Spring Nash ALP [Catalytic activity/Vol] 116 U/L Normal 46-116 [facility] Comment on above: Performed By: #### P OCGLUC #### [facility] [address] [address] [address] Spring Nash ALT [Catalytic activity/Vol] 15 U/L Critically low 16-63 [facility] Comment on above: Performed By: #### P OCGLUC #### [facility] [address] [address] [address] Spring Nash Anion gap [Moles/Vol] 14.0 mmol/L Normal [facility] Comment on above: Performed By: #### P OCGLUC #### [facility] [address] [address] [address] Spring Nash AST [Catalytic activity/Vol] 15 U/L Normal 15-37 [facility] Comment on above: Performed By: #### P OCGLUC #### [facility] [address] [address] [address] Spring Nash Bilirubin [Mass/Vol] 0.2 mg/dL Normal 0.2-1.0 [facility] Comment on above: Performed By: #### P OCGLUC #### [facility] [address] [address] [address] Spring Nash Calcium [Mass/Vol] 8.0 mg/dL Critically low 8.5-10.1 [facility] Comment on above: Performed By: #### P OCGLUC #### [facility] [address] [address] [address] Spring Nash Chloride [Moles/Vol] 108 mmol/L Critically high 98-107 [facility] Comment on above: Performed By: #### P OCGLUC #### [facility] [address] [address] [address] Spring Nash CO2 [Moles/Vol] 22.2 mmol/L Normal 21.0-32.0 [facility] Comment on above: Performed By: #### P OCGLUC #### [facility] [address] [address] [address] Spring Nash Creatinine [Mass/Vol] 3.06 mg/dL Critically high 0.70-1.30 [facility] Comment on above: Performed By: #### P OCGLUC #### [facility] [address] [address] [address] Spring Nash EGFR-AF TURKISH 26 mL/min/1.73m2 Critically low >=60 [facility] Comment on above: Performed By: #### P OCGLUC #### [facility] [address] [address] [address] Spring Nash EGFR-NON AF TURKISH 22 mL/min/1.73m2 Critically low >=60 [facility] Comment on above: Performed By: #### P OCGLUC #### [facility] [address] [address] [address] Spring Nash Globulin (S) [Mass/Vol] 3.0 g/dL Normal [facility] Comment on above: Performed By: #### P OCGLUC #### [facility] [address] [address] [address] Spring Nash Glucose [Mass/Vol] 142 mg/dL Critically high 74-106 [facility] Comment on above: Performed By: #### P OCGLUC #### [facility] [address] [address] [address] Spring Nash Potassium [Moles/Vol] 4.2 mmol/L Normal 3.5-5.1 [facility] Comment on above: Performed By: #### P OCGLUC #### [facility] [address] [address] [address] Spring Nash Protein [Mass/Vol] 5.3 g/dL Critically low 6.4-8.2 [facility] Comment on above: Performed By: #### P OCGLUC #### [facility] [address] [address] [address] Spring Nash Sodium [Moles/Vol] 140 mmol/L Normal 136-145 [facility] Comment on above: Performed By: #### P OCGLUC #### [facility] [address] [address] [address] Spring Nash Urea nitrogen [Mass/Vol] 40.0 mg/dL Critically high 7.0-18.0 [facility] Comment on above: Performed By: #### P OCGLUC #### [facility] [address] [address] [address] Spring Nash Urea nitrogen/Creatinine [Mass ratio] 13.1 mg/mg Normal [facility] Comment on above: Performed By: #### P OCGLUC #### [facility] [address] [address] [address] Spring Nash BNPon 03-04-2023 Natriuretic peptide B (Bld) [Mass/Vol] 8915.0 pg/mL Critically high <=900.0 [facility] Comment on above: Performed By: #### P OCGLUC #### [facility] [address] [address] [address] Spring Nash CBC AUTO DIFFon 05-22-2023 BASO # 0.0 103/ul Normal 0.0-0.1 [facility] Comment on above: Performed By: #### C MP #### [facility] [address] [place] [address] Dr. Spring Nash Basophils/100 WBC (Bld) 0.2 % Normal 0.2-2.0 [facility] Comment on above: Performed By: #### C MP #### [facility] [address] [place] [address] Dr. Spring Nash EO # 0.4 103/ul Normal 0.0-0.7 [facility] Comment on above: Performed By: #### C MP #### [facility] [address] [place] [address] Dr. Spring Nash Eosinophils/100 WBC (Bld) 5.1 % Normal 0.9-7.0 [facility] Comment on above: Performed By: #### C MP #### [facility] [address] [place] [address] Dr. Spring Nash Erythrocyte distribution width (RBC) [Ratio] 15.7 % Critically high 11.0-15.0 [facility] Comment on above: Performed By: #### C MP #### [facility] [address] [place] [address] Dr. Spring Nash Hematocrit (Bld) [Volume fraction] 29.5 % Critically low 42.0-54.0 [facility] Comment on above: Performed By: #### C MP #### [facility] [address] [place] [address] Dr. Spring Nash Hemoglobin (Bld) [Mass/Vol] 9.2 g/dL Critically low 14.0-18.0 [facility] Comment on above: Performed By: #### C MP #### [facility] [address] [place] [address] Dr. Spring Nash IG # 0.03 10e3/ul Normal 0.00-0.03 [facility] Comment on above: Performed By: #### C MP #### [facility] [address] [place] [address] Dr. Spring Nash IG % 0.4 % Normal 0.0-0.5 [facility] Comment on above: Performed By: #### C MP #### [facility] [address] [place] [address] Dr. Spring Nash LYMPH # 0.9 103/ul Critically low 1.2-3.8 [facility] Comment on above: Performed By: #### C MP #### [facility] [address] [place] [address] Dr. Spring Nash Lymphocytes/100 WBC (Bld) 11.3 % Critically low 20.5-60.0 [facility] Comment on above: Performed By: #### C MP #### [facility] [address] [place] [address] Dr. Spring Nash MANUAL DIFF REQ NO Normal [facility] Comment on above: Performed By: #### C MP #### [facility] [address] [place] [address] Dr. Spring Nash MCH (RBC) [Entitic mass] 29.6 pg Normal 25.9-34.0 [facility] Comment on above: Performed By: #### C MP #### [facility] [address] [place] [address] Dr. Spring Nash MCHC (RBC) [Mass/Vol] 31.2 g/dL Normal 29.9-35.2 [facility] Comment on above: Performed By: #### C MP #### [facility] [address] [place] [address] Dr. Spring Nash MCV (RBC) [Entitic vol] 94.9 fL Critically high 80.0-94 .0 [facility] Comment on above: Performed By: #### C MP #### [facility] [address] [place] [address] Dr. Spring Nash MONO # 0.6 103/ul Normal 0.3-0.8 [facility] Comment on above: Performed By: #### C MP #### [facility] [address] [place] [address] Dr. Spring Nash Monocytes/100 WBC (Bld) 7.7 % Normal 1.7-12.0 [facility] Comment on above: Performed By: #### C MP #### [facility] [address] [address] [address] Spring Nash NEUT # 6.2 103/ul Normal 1.4-6.5 [facility] Comment on above: Performed By: #### C MP #### [facility] [address] [address] [address] Spring Nash Neutrophils/100 WBC (Bld) 75.3 % Critically high 43.0-75.0 [facility] Comment on above: Performed By: #### C MP #### [facility] [address] [address] [address] Spring Nash Platelet mean volume (Bld) [Entitic vol] 11.8 fL Normal 9.5-13.5 [facility] Comment on above: Performed By: #### C MP #### [facility] [address] [address] [address] Spring Nash PLT 183 103/ul Normal 150-450 [facility] Comment on above: Performed By: #### C MP #### [facility] [address] [address] [address] Spring Nash RBC 3.11 106/ul Critically low 4.70-6.10 [facility] Comment on above: Performed By: #### C MP #### [facility] [address] [address] [address] Spring Nash WBC 8.2 103/ul Normal 4.0-11.0 [facility] Comment on above: Performed By: #### C MP #### [facility] [address] [address] [address] Spring Nash POINT OF CARE GLUCOSEon 02-12 Glucose [Mass/Vol] 218 mg/dL Critically high 74-106 [facility] Comment on above: Performed By: #### P OCGLUC #### [facility] [address] [address] [address] Spring Nash Glucose [Mass/Vol] 193 mg/dL Critically high 74-106 [facility] Comment on above: Performed By: #### P OCGLUC #### [facility] [address] [address] [address] Spring Nash Glucose [Mass/Vol] 146 mg/dL Critically high 74-106 [facility] Comment on above: Performed By: #### C MP #### [facility] [address] [address] [address] Spring Nash Glucose [Mass/Vol] 65 mg/dL Critically low 74-106 [facility] Comment on above: Performed By: #### P OCGLUC #### [facility] [address] [address] [address] Spring Nash PROF 14(COMP METB)on 023 Albumin [Mass/Vol] 2.2 g/dL Critically low 3.4-5.0 [facility] Comment on above: Performed By: #### P OCGLUC #### [facility] [address] [address] [address] Spring Nash Albumin/Globulin [Mass ratio] 0.8 {ratio} Normal [facility] Comment on above: Performed By: #### P OCGLUC #### [facility] [address] [address] [address] Spring Nash ALP [Catalytic activity/Vol] 100 U/L Normal 46-116 [facility] Comment on above: Performed By: #### P OCGLUC #### [facility] [address] [address] [address] Spring Nash ALT [Catalytic activity/Vol] 15 U/L Critically low 16-63 [facility] Comment on above: Performed By: #### P OCGLUC #### [facility] [address] [address] [address] Spring Nash Anion gap [Moles/Vol] 13.2 mmol/L Normal [facility] Comment on above: Performed By: #### P OCGLUC #### [facility] [address] [address] [address] Spring Nash AST [Catalytic activity/Vol] 14 U/L Critically low 15-37 [facility] Comment on above: Performed By: #### P OCGLUC #### [facility] [address] [address] [address] Spring Nash Bilirubin [Mass/Vol] 0.3 mg/dL Normal 0.2-1.0 [facility] Comment on above: Performed By: #### P OCGLUC #### [facility] [address] [address] [address] Spring Nash Calcium [Mass/Vol] 8.0 mg/dL Critically low 8.5-10.1 [facility] Comment on above: Performed By: #### P OCGLUC #### [facility] [address] [address] [address] Spring Nash Chloride [Moles/Vol] 109 mmol/L Critically high 98-107 [facility] Comment on above: Performed By: #### P OCGLUC #### [facility] [address] [address] [address] Spring Nash CO2 [Moles/Vol] 24.3 mmol/L Normal 21.0-32.0 [facility] Comment on above: Performed By: #### P OCGLUC #### [facility] [address] [address] [address] Spring Nash Creatinine [Mass/Vol] 2.38 mg/dL Critically high 0.70-1.30 [facility] Comment on above: Performed By: #### P OCGLUC #### [facility] [address] [address] [address] Spring Nash EGFR-AF TURKISH 35 mL/min/1.73m2 Critically low >=60 [facility] Comment on above: Performed By: #### P OCGLUC #### [facility] [address] [address] [address] Spring Nash EGFR-NON AF TURKISH 29 mL/min/1.73m2 Critically low >=60 [facility] Comment on above: Performed By: #### P OCGLUC #### [facility] [address] [address] [address] Spring Nash Globulin (S) [Mass/Vol] 2.9 g/dL Normal [facility] Comment on above: Performed By: #### P OCGLUC #### [facility] [address] [address] [address] Spring Nash Glucose [Mass/Vol] 107 mg/dL Critically high 74-106 [facility] Comment on above: Performed By: #### P OCGLUC #### [facility] [address] [address] [address] Spring Nash Potassium [Moles/Vol] 3.5 mmol/L Normal 3.5-5.1 [facility] Comment on above: Performed By: #### P OCGLUC #### [facility] [address] [address] [address] Spring Nash Protein [Mass/Vol] 5.1 g/dL Critically low 6.4-8.2 [facility] Comment on above: Performed By: #### P OCGLUC #### [facility] [address] [address] [address] Spring Nash Sodium [Moles/Vol] 143 mmol/L Normal 136-145 [facility] Comment on above: Performed By: #### P OCGLUC #### [facility] [address] [address] [address] Spring Nash Urea nitrogen [Mass/Vol] 34.0 mg/dL Critically high 7.0-18.0 [facility] Comment on above: Performed By: #### P OCGLUC #### [facility] [address] [address] [address] Spring Nash Urea nitrogen/Creatinine [Mass ratio] 14.3 mg/mg Normal [facility] Comment on above: Performed By: #### P OCGLUC #### [facility] [address] [address] [address] Spring Nash US PONCE DOP LEG LTon 03-04-20 US PONCE DOP LEG LT EXAMINATION: US PONCE DOP LEG LT HISTORY: Peripheral edema COMPARISON: Ultrasound venous Doppler leg bilateral 11/07/2020 FINDINGS: REGION: Left lower extremity THROMBI: None. COMPRESSIBILITY: Normal compressibility. FLOW: Normal waveform and antegrade flow between 5 and 20 cm/s. OTHER: Subcutaneous edema. IMPRESSION: 1. No deep vein thrombus within the left lower extremity. Electronically authenticated by: MURRAY YEBOAH Date: 2023-03-04 11:26 Normal [facility] BLOOD GASES BTYon 03-03-2023 02 MODE ROOM AIR [facility] Comment on above: Performed By: #### C MP, HSTROPN, BNP #### [facility] [address] [address] [address] Spring Nash ALLENS TEST Positive [facility] Comment on above: Performed By: #### C MP, HSTROPN, BNP #### [facility] [address] [address] [address] Spring Nash Base excess Calc (Bld) [Moles/Vol] -2.2000 mmol/L Critically low -2.0-2.0 [facility] Comment on above: Performed By: #### C MP, HSTROPN, BNP #### [facility] [address] [address] [address] Spring Nash BIPAP PRESSURE [facility] Comment on above: Performed By: #### C MP, HSTROPN, BNP #### [facility] [address] [address] [address] Spring Nash CPAP [facility] Comment on above: Performed By: #### C MP, HSTROPN, BNP #### [facility] [address] [address] [address] Spring Nash FIO2 [facility] Comment on above: Performed By: #### C MP, HSTROPN, BNP #### [facility] [address] [address] [address] Spring Nash HCO3 (Bld) [Moles/Vol] 22.8 mmol/L Normal 22.0-26.0 [facility] Comment on above: Performed By: #### C MP, HSTROPN, BNP #### [facility] [address] [address] [address] Spring Nash LPM [facility] Comment on above: Performed By: #### C MP, HSTROPN, BNP #### [facility] [address] [address] [address] Spring Nash MINUTE VOLUME Normal [facility] Comment on above: Performed By: #### C MP, HSTROPN, BNP #### [facility] [address] [address] [address] Spring Nash Oxygen (Bld) [Partial pressure] 86.8 mm[Hg] Normal 80.0-100.0 [facility] Comment on above: Performed By: #### C MP, HSTROPN, BNP #### [facility] [address] [address] [address] Spring Nash Oxygen saturation in Blood 97.7 % Normal 95.0-100.0 [facility] Comment on above: Performed By: #### C MP, HSTROPN, BNP #### [facility] [address] [address] [address] Spring Nash PCO2 37.9 mmHg Normal 35.0-45.0 [facility] Comment on above: Performed By: #### C MP, HSTROPN, BNP #### [facility] [address] [address] [address] Spring Nash [facility] Comment on above: Performed By: #### C MP, HSTROPN, BNP #### [facility] [address] [address] [address] Spring Nash pH (Bld) 7.388 [pH] Normal 7.350-7.45 0 [facility] Comment on above: Performed By: #### C MP, HSTROPN, BNP #### [facility] [address] [address] [address] Spring Nash [facility] Comment on above: Performed By: #### C MP, HSTROPN, BNP #### [facility] [address] [address] [address] Spring Nash [facility] Comment on above: Performed By: #### C MP, HSTROPN, BNP #### [facility] [address] [place] [address] Dr. Spring Nash PUNCTURE SITE LR [facility] Comment on above: Performed By: #### C MP, HSTROPN, BNP #### [facility] [address] [place] [address] Dr. Spring Nash RATE [facility] Comment on above: Performed By: #### C MP, HSTROPN, BNP #### [facility] [address] [place] [address] Dr. Spring Nash VENT MODE [facility] Comment on above: Performed By: #### C MP, HSTROPN, BNP #### [facility] [address] [place] [address] Dr. Spring Nash [facility] Comment on above: Performed By: #### C MP, HSTROPN, BNP #### [facility] [address] [place] [address] Dr. Spring Nash BNPon 03-03-2023 Natriuretic peptide B (Bld) [Mass/Vol] 30932.0 pg/mL Critically high <=900.0 [facility] Comment on above: Performed By: #### C MP, HSTROPN, BNP #### [facility] [address] [place] [address] Dr. Spring Nash CBC AUTO DIFFon 03-03-2023 BASO # 0.0 103/ul Normal 0.0-0.1 [facility] Comment on above: Performed By: #### C MP #### [facility] [address] [place] [address] Dr. Spring Nash Basophils/100 WBC (Bld) 0.2 % Normal 0.2-2.0 [facility] Comment on above: Performed By: #### C MP #### [facility] [address] [place] [address] Dr. Spring Nash EO # 0.4 103/ul Normal 0.0-0.7 [facility] Comment on above: Performed By: #### C MP #### [facility] [address] [place] [address] Dr. Spring Nash Eosinophils/100 WBC (Bld) 3.2 % Normal 0.9-7.0 [facility] Comment on above: Performed By: #### C MP #### [facility] [address] [place] [address] Dr. Spring Nash Erythrocyte distribution width (RBC) [Ratio] 15.1 % Critically high 11.0-15.0 [facility] Comment on above: Performed By: #### C MP #### [facility] [address] [place] [address] Dr. Spring Nash Hematocrit (Bld) [Volume fraction] 33.2 % Critically low 42.0-54.0 [facility] Comment on above: Performed By: #### C MP #### [facility] [address] [place] [address] Dr. Spring Nash Hemoglobin (Bld) [Mass/Vol] 10.3 g/dL Critically low 14.0-18.0 [facility] Comment on above: Performed By: #### C MP #### [facility] [address] [place] [address] Dr. Spring Nash IG # 0.08 10e3/ul Critically high 0.00-0.03 [facility] Comment on above: Performed By: #### C MP #### [facility] [address] [place] [address] Dr. Spring Nash IG % 0.7 % Critically high 0.0-0.5 [facility] Comment on above: Performed By: #### C MP #### [facility] [address] [place] [address] Dr. Spring Nash LYMPH # 0.9 103/ul Critically low 1.2-3.8 [facility] Comment on above: Performed By: #### C MP #### [facility] [address] [place] [address] Dr. Spring Nash Lymphocytes/100 WBC (Bld) 7.5 % Critically low 20.5-60.0 [facility] Comment on above: Performed By: #### C MP #### [facility] [address] [place] [address] Dr. Spring Nash MANUAL DIFF REQ NO Normal [facility] Comment on above: Performed By: #### C MP #### [facility] [address] [place] [address] Dr. Spring Nash MCH (RBC) [Entitic mass] 29.2 pg Normal 25.9-34.0 [facility] Comment on above: Performed By: #### C MP #### [facility] [address] [place] [address] Dr. Spring Nash MCHC (RBC) [Mass/Vol] 31.0 g/dL Normal 29.9-35.2 [facility] Comment on above: Performed By: #### C MP #### [facility] [address] [place] [address] Dr. Spring Nash MCV (RBC) [Entitic vol] 94.1 fL Critically high 80.0-94 .0 [facility] Comment on above: Performed By: #### C MP #### [facility] [address] [place] [address] Dr. Spring Nash MONO # 0.8 103/ul Normal 0.3-0.8 [facility] Comment on above: Performed By: #### C MP #### [facility] [address] [place] [address] Dr. Spring Nash Monocytes/100 WBC (Bld) 6.2 % Normal 1.7-12.0 [facility] Comment on above: Performed By: #### C MP #### [facility] [address] [place] [address] Dr. Spring Nash NEUT # 9.9 103/ul Critically high 1.4-6.5 [facility] Comment on above: Performed By: #### C MP #### [facility] [address] [place] [address] Dr. Spring Nash Neutrophils/100 WBC (Bld) 82.2 % Critically high 43.0-75.0 [facility] Comment on above: Performed By: #### C MP #### [facility] [address] [place] [address] Dr. Spring Nash Platelet mean volume (Bld) [Entitic vol] 11.8 fL Normal 9.5-13.5 [facility] Comment on above: Performed By: #### C MP #### [facility] [address] [place] [address] Dr. Spring Nash PLT 196 103/ul Normal 150-450 [facility] Comment on above: Performed By: #### C MP #### [facility] [address] [place] [address] Dr. Spring Nash RBC 3.53 106/ul Critically low 4.70-6.10 [facility] Comment on above: Performed By: #### C MP #### [facility] [address] [place] [address] Dr. Spring Nash WBC 12.0 103/ul Critically high 4.0-11.0 [facility] Comment on above: Performed By: #### C MP #### [facility] [address] [place] [address] Dr. Spring Nash BASO # 0.0 103/ul Normal 0.0-0.1 [facility] Comment on above: Performed By: #### C MP #### [facility] [address] [place] [address] Dr. Spring Nash Basophils/100 WBC (Bld) 0.3 % Normal 0.2-2.0 [facility] Comment on above: Performed By: #### C MP #### [facility] [address] [place] [address] Dr. Spring Nash EO # 0.5 103/ul Normal 0.0-0.7 [facility] Comment on above: Performed By: #### C MP #### [facility] [address] [place] [address] Dr. Spring Nash Eosinophils/100 WBC (Bld) 3.8 % Normal 0.9-7.0 [facility] Comment on above: Performed By: #### C MP #### [facility] [address] [place] [address] Dr. Spring Nash Erythrocyte distribution width (RBC) [Ratio] 14.9 % Normal 11.0-15.0 [facility] Comment on above: Performed By: #### C MP #### [facility] [address] [place] [address] Dr. Spring Nash Hematocrit (Bld) [Volume fraction] 33.1 % Critically low 42.0-54.0 [facility] Comment on above: Performed By: #### C MP #### [facility] [address] [place] [address] Dr. Spring Nash Hemoglobin (Bld) [Mass/Vol] 10.6 g/dL Critically low 14.0-18.0 [facility] Comment on above: Performed By: #### C MP #### [facility] [address] [place] [address] Dr. Spring Nash IG # 0.07 10e3/ul Critically high 0.00-0.03 [facility] Comment on above: Performed By: #### C MP #### [facility] [address] [place] [address] Dr. Spring Nash IG % 0.6 % Critically high 0.0-0.5 [facility] Comment on above: Performed By: #### C MP #### [facility] [address] [place] [address] Dr. Spring Nash LYMPH # 1.1 103/ul Critically low 1.2-3.8 [facility] Comment on above: Performed By: #### C MP #### [facility] [address] [place] [address] Dr. Spring Nash Lymphocytes/100 WBC (Bld) 9.2 % Critically low 20.5-60.0 [facility] Comment on above: Performed By: #### C MP #### [facility] [address] [place] [address] Dr. Spring Nash MANUAL DIFF REQ NO Normal [facility] Comment on above: Performed By: #### C MP #### [facility] [address] [place] [address] Dr. Spring Nash MCH (RBC) [Entitic mass] 29.7 pg Normal 25.9-34.0 [facility] Comment on above: Performed By: #### C MP #### [facility] [address] [address] [address] Spring Nash MCHC (RBC) [Mass/Vol] 32.0 g/dL Normal 29.9-35.2 [facility] Comment on above: Performed By: #### C MP #### [facility] [address] [address] [address] Spring Nash MCV (RBC) [Entitic vol] 92.7 fL Normal 80.0-94.0 [facility] Comment on above: Performed By: #### C MP #### [facility] [address] [address] [address] Spring Nash MONO # 0.7 103/ul Normal 0.3-0.8 [facility] Comment on above: Performed By: #### C MP #### [facility] [address] [address] [address] Spring Nash Monocytes/100 WBC (Bld) 6.1 % Normal 1.7-12.0 [facility] Comment on above: Performed By: #### C MP #### [facility] [address] [place] [address] Dr. Spring Nash NEUT # 9.4 103/ul Critically high 1.4-6.5 [facility] Comment on above: Performed By: #### C MP #### [facility] [address] [address] [address] Spring Nash Neutrophils/100 WBC (Bld) 80.0 % Critically high 43.0-75.0 [facility] Comment on above: Performed By: #### C MP #### [facility] [address] [address] [address] Spring Nash Platelet mean volume (Bld) [Entitic vol] 11.8 fL Normal 9.5-13.5 [facility] Comment on above: Performed By: #### C MP #### [facility] [address] [place] [address] Dr. Spring Nash PLT 210 103/ul Normal 150-450 [facility] Comment on above: Performed By: #### C MP #### [facility] [address] [place], [place] [address] Dr. Spring Nash RBC 3.57 106/ul Critically low 4.70-6.10 [facility] Comment on above: Performed By: #### C MP #### [facility] [address] [place], [place] [address] Dr. Spring Nash WBC 11.7 103/ul Critically high 4.0-11.0 [facility] Comment on above: Performed By: #### C MP #### [facility] [address] [place], [place] [address] Dr. Spring Nash CRPon 03-03-2023 CRP 1.0 mg/dL Normal <=1.0 [facility] Comment on above: Performed By: #### B MP #### [facility] [address] [place], [place] [address] Dr. Spring Nash CTA CHEST WO W [...] LOTTIE NESBITT Date: 2023-03-03 00:50 Normal [facility] D-DIMERon 03-03-2023 D-DIMER 0.67 mg/L FEU Critically high <=0.[address] [facility] Comment on above: Performed By: #### P OCGLUC #### [facility] [address] [place] [address] Dr. Spring Nash D-DIMER COMMENTS SEE BELOW Normal [facility] Comment on above: Result Comment: [...] hospitalization. Performed By: #### P OCGLUC #### [facility] [address] [place] [address] Dr. Spring Nash POINT OF CARE GLUCOSEon 02-12 Glucose [Mass/Vol] 233 mg/dL Critically high [address] [place] [address] Comment on above: Performed By: #### P OCGLUC #### [facility] [address] [place] [address] Dr. Spring Nash Glucose [Mass/Vol] 177 mg/dL Critically high [facility] Comment on above: Performed By: #### P OCGLUC #### [facility] [address] [place] [address] Dr. Spring Nash Glucose [Mass/Vol] 268 mg/dL Critically high [address] [place] [address] Comment on above: Performed By: #### P OCGLUC #### [facility] [address] [place] [address] Dr. Spring Nash PROF 14(COMP METB)on 023 Albumin [Mass/Vol] 2.6 g/dL Critically low 3.4-5.0 [facility] Comment on above: Performed By: #### C MP, HSTROPN, BNP #### [facility] [address] [place] [address] Dr. Spring Nash Albumin/Globulin [Mass ratio] 0.8 {ratio} Normal [facility] Comment on above: Performed By: #### C MP, HSTROPN, BNP #### [facility] [address] [place] [address] Dr. Spring Nash ALP [Catalytic activity/Vol] 160 U/L Critically high 46-116 [facility] Comment on above: Performed By: #### C MP, HSTROPN, BNP #### [facility] [address] [place] [address] Dr. Spring Nash ALT [Catalytic activity/Vol] 17 U/L Normal 16-63 [facility] Comment on above: Performed By: #### C MP, HSTROPN, BNP #### [facility] [address] [place] [address] Dr. Spring Nash Anion gap [Moles/Vol] 14.8 mmol/L Normal [facility] Comment on above: Performed By: #### C MP, HSTROPN, BNP #### [facility] [address] [place] [address] Dr. Spring Nash AST [Catalytic activity/Vol] 17 U/L Normal 15-37 [facility] Comment on above: Performed By: #### C MP, HSTROPN, BNP #### [facility] [address] [place] [address] Dr. Spring Nash Bilirubin [Mass/Vol] 0.5 mg/dL Normal 0.2-1.0 [facility] Comment on above: Performed By: #### C MP, HSTROPN, BNP #### [facility] [address] [place] [address] Dr. Spring Nash Calcium [Mass/Vol] 8.3 mg/dL Critically low 8.5-10.1 [facility] Comment on above: Performed By: #### C MP, HSTROPN, BNP #### [facility] [address] [place] [address] Dr. Spring Nash Chloride [Moles/Vol] 106 mmol/L Normal 98-107 [facility] Comment on above: Performed By: #### C MP, HSTROPN, BNP #### [facility] [address] [place] [address] Dr. Spring Nash CO2 [Moles/Vol] 21.9 mmol/L Normal 21.0-32.0 [facility] Comment on above: Performed By: #### C MP, HSTROPN, BNP #### [facility] [address] [place] [address] Dr. Spring Nash Creatinine [Mass/Vol] 2.00 mg/dL Critically high 0.70-1.30 [facility] Comment on above: Performed By: #### C MP, HSTROPN, BNP #### [facility] [address] [place] [address] Dr. Spring Nash EGFR-AF TURKISH 43 mL/min/1.73m2 Critically low >=60 [facility] Comment on above: Performed By: #### C MP, HSTROPN, BNP #### [facility] [address] [place] [address] Dr. Spring Nash EGFR-NON AF TURKISH 35 mL/min/1.73m2 Critically low >=60 [facility] Comment on above: Performed By: #### C MP, HSTROPN, BNP #### [facility] [address] [place] [address] Dr. Spring Nash Globulin (S) [Mass/Vol] 3.3 g/dL Normal [facility] Comment on above: Performed By: #### C MP, HSTROPN, BNP #### [facility] [address] [place] [address] Dr. Spring Nash Glucose [Mass/Vol] 306 mg/dL Critically high 74-106 [facility] Comment on above: Performed By: #### C MP, HSTROPN, BNP #### [facility] [address] [place] [address] Dr. Spring Nash Potassium [Moles/Vol] 3.7 mmol/L Normal 3.5-5.1 [facility] Comment on above: Performed By: #### C MP, HSTROPN, BNP #### [facility] [address] [address] [address] Spring Nash Protein [Mass/Vol] 5.9 g/dL Critically low 6.4-8.2 [facility] Comment on above: Performed By: #### C MP, HSTROPN, BNP #### [facility] [address] [place] [address] Dr. Spring Nash Sodium [Moles/Vol] 139 mmol/L Normal 136-145 [facility] Comment on above: Performed By: #### C MP, HSTROPN, BNP #### [facility] [address] [place] [address] Dr. Spring Nash Urea nitrogen [Mass/Vol] 30.0 mg/dL Critically high 7.0-18.0 [facility] Comment on above: Performed By: #### C MP, HSTROPN, BNP #### [facility] [address] [place] [address] Dr. Spring Nash Urea nitrogen/Creatinine [Mass ratio] 15.0 mg/mg Normal [facility] Comment on above: Performed By: #### C MP, HSTROPN, BNP #### [facility] [address] [place] [address] Dr. Spring Nash Albumin [Mass/Vol] 2.7 g/dL Critically low 3.4-5.0 [facility] Comment on above: Performed By: #### C MP, HSTROPN, BNP #### [facility] [address] [place] [address] Dr. Spring Nash Albumin/Globulin [Mass ratio] 0.8 {ratio} Normal [facility] Comment on above: Performed By: #### C MP, HSTROPN, BNP #### [facility] [address] [place] [address] Dr. Spring Nash ALP [Catalytic activity/Vol] 188 U/L Critically high 46-116 [facility] Comment on above: Performed By: #### C MP, HSTROPN, BNP #### [facility] [address] [address] [address] Spring Nash ALT [Catalytic activity/Vol] 19 U/L Normal 16-63 [facility] Comment on above: Performed By: #### C MP, HSTROPN, BNP #### [facility] [address] [place] [address] Dr. Sprign Nash Anion gap [Moles/Vol] 14.4 mmol/L Normal [facility] Comment on above: Performed By: #### C MP, HSTROPN, BNP #### [facility] [address] [place] [address] Dr. Spring Nash AST [Catalytic activity/Vol] 18 U/L Normal 15-37 [facility] Comment on above: Performed By: #### C MP, HSTROPN, BNP #### [facility] [address] [place] [address] Dr. Spring Nash Bilirubin [Mass/Vol] 0.4 mg/dL Normal 0.2-1.0 [facility] Comment on above: Performed By: #### C MP, HSTROPN, BNP #### [facility] [address] [place] [address] Dr. Spring Nash Calcium [Mass/Vol] 8.3 mg/dL Critically low 8.5-10.1 [facility] Comment on above: Performed By: #### C MP, HSTROPN, BNP #### [facility] [address] [place] [address] Dr. Spring Nash Chloride [Moles/Vol] 106 mmol/L Normal 98-107 [facility] Comment on above: Performed By: #### C MP, HSTROPN, BNP #### [facility] [address] [place] [address] Dr. Spring Nash CO2 [Moles/Vol] 23.7 mmol/L Normal 21.0-32.0 [facility] Comment on above: Performed By: #### C MP, HSTROPN, BNP #### [facility] [address] [place] [address] Dr. Spring Nash Creatinine [Mass/Vol] 2.10 mg/dL Critically high 0.70-1.30 [facility] Comment on above: Performed By: #### C MP, HSTROPN, BNP #### [facility] [address] [place] [address] Dr. Spring Nash EGFR-AF TURKISH 41 mL/min/1.73m2 Critically low >=60 [facility] Comment on above: Performed By: #### C MP, HSTROPN, BNP #### [facility] [address] [place] [address] Dr. Spring Nash EGFR-NON AF TURKISH 33 mL/min/1.73m2 Critically low >=60 [facility] Comment on above: Performed By: #### C MP, HSTROPN, BNP #### [facility] [address] [place] [address] Dr. Spring Nash Globulin (S) [Mass/Vol] 3.4 g/dL Normal [facility] Comment on above: Performed By: #### C MP, HSTROPN, BNP #### [facility] [address] [place] [address] Dr. Spring Nash Glucose [Mass/Vol] 343 mg/dL Critically high 74-106 [facility] Comment on above: Performed By: #### C MP, HSTROPN, BNP #### [facility] [address] [place] [address] Dr. Spring Nash Potassium [Moles/Vol] 4.1 mmol/L Normal 3.5-5.1 [facility] Comment on above: Performed By: #### C MP, HSTROPN, BNP #### [facility] [address] [place] [address] Dr. Spring Nash Protein [Mass/Vol] 6.1 g/dL Critically low 6.4-8.2 [facility] Comment on above: Performed By: #### C MP, HSTROPN, BNP #### [facility] [address] [place] [address] Dr. Spring Nash Sodium [Moles/Vol] 140 mmol/L Normal 136-[address] [facility] Comment on above: Performed By: #### C MP, HSTROPN, BNP #### [facility] [address] [address] [address] Spring Nash Urea nitrogen [Mass/Vol] 29.0 mg/dL Critically high 7.0-18.0 [facility] Comment on above: Performed By: #### C MP, HSTROPN, BNP #### [facility] [address] [address] [address] Spring Nash Urea nitrogen/Creatinine [Mass ratio] 13.8 mg/mg Normal [facility] Comment on above: Performed By: #### C MP, HSTROPN, BNP #### [facility] [address] [address] [address] Spring Nash SED RATE WESTERGRENon 2022 SED RATE 52 mm/hr Critically high <=20 [facility] Comment on above: Performed By: #### C MP, HSTROPN, BNP #### [facility] [address] [address] [address] Spring Nash TROPONIN, HIGH SENSITIVITYon 03-03-2023 HSTROP 44.7 pg/mL Normal 4.0-76.1 [facility] Comment on above: Result Comment: CUT- OFF POINTS HAVE BEEN ESTABLISHED BASED ON THE FOURTH UNIVERSAL DEFINITIONS OF MYOCARDIAL INFARCTION. THE UPPER REFERENCE LIMIT (URL) OF TROPONIN, DEFINED THE 99TH PERCENTILE OF cTnI DISTRIBUTION IN A REFERENCE POPULATION, HAS BEEN CONFIRMED THE DECISION THRESHOLD FOR LA DIAGNOSIS. Performed By: #### C MP, HSTROPN, BNP #### [facility] [address] [address] [address] Spring Nash URIC ACID SERUMon 03-03-2023 Urate [Mass/Vol] 7.3 mg/dL Critically high 3.5-7.2 [facility] Comment on above: Performed By: #### B MP #### [facility] [address] [address] [address] Spring Nash Covid-19 PCR (CVDTBH)on 01-13 SARS-CoV-2 (COVID-19) RNA HONEY+probe Ql (Unsp spec) Not detected Normal NOT DETECTED [facility] Comment on above: Result Comment: This test is not yet approved or cleared by the [place] FDA. When there are no FDA-approved or cleared tests available, and other criteria are met, FDA can make tests available under an emergency access mechanism called an Emergency Use Authorization (EUA). The EUA for this test is supported by the [place] of Health and Human Service's (HHS's) declaration [...] By: #### C MP, HSTROPN, BNP #### [facility] [address] [address] [address] Spring Nash INFLUENZA A AND B AGon 01-31 [facility] SEE BELOW Normal [facility] Comment on above: Result Comment: Nega tive for Flu A protein angiten. Infection due to Flu A cannot be ruled out. Flu A angiten in the sample may be below the detection limit of the test. Performed By: #### C MP, HSTROPN, BNP #### [facility] [address] [address] [address] Spring [facility] Normal [facility] Comment on above: Result Comment: Nega tive for Flu B protein antigen. Infection due to Flu B cannot be ruled out. Flu B antigen in the sample may be below the detection limit of the test. Performed By: #### C MP, HSTROPN, BNP #### [facility] [address] [address] [address] Spring Nash INFLUENZA A AG Negative Normal NEGATIVE SEE COMMENT [facility] Comment on above: Performed By: #### C MP, HSTROPN, BNP #### [facility] [address] [place], [place] [address] Dr. Spring Nash INFLUENZA B AG Negative Normal NEGATIVE SEE COMMENT [facility] Comment on above: Performed By: #### C MP, HSTROPN, BNP #### [facility] [address] [place], [place] [address] Dr. Spring Nash SYMPTOMATIC COVID-19 ANTIGEN on 01-31-2023 EUA Statement SEE BELOW Normal [facility] Comment on above: Result Comment: This test [...] sooner. Performed By: #### P OCGLUC #### [facility] [address] [address] [address] Spring Nash SARS-CoV-2 (COVID-19) RNA HONEY+probe Ql (Unsp spec) Negative Normal NEGATIVE [facility] Comment on above: Performed By: #### P OCGLUC #### [facility] [address] [address] [address] Spring Nash Study observation Right reti na by OCT01-08-2023 [facility] Radiology Study observation (narrative) [facility] FUNDUS PHOTOS - OU - BOTH EY ESon 12-19-2022 Right Eye Macula findings include microaneurysms. Periphery findings include hemorrhage. Left Eye Macula findings include microaneurysms. Periphery findings include hemorrhage, neovascularization. [facility] Radiology Study observation (narrative) [facility] CUI RETINAL PHOTOCOAGULATION - OU - BOTH EYESon 12-19-2022 [facility] Radiology Study observation (narrative) [facility] Study observation Right reti na by 12-19-2022 [facility] Radiology Study observation (narrative) [facility] INTRAVITREAL INJECTION, PHAR MACOLOGIC AGENT - OU [...] mL Route: Intravitreal, Site: Right Eye Lot: [id number], Expiration date: 10/18/2022 Left Eye Preparation included 10% betadine to eyelids. A 30 gauge needle was used. Injection Medications: 1.25 mg bevacizumab 1.25MG/0.05 mL Route: Intravitreal, Site: Left Eye Lot: [id number], Expiration date: 10/18/2022 Post-op Right Eye Post [...] [facility] Radiology Study observation (narrative) [facility] Study observation Right reti na by 10-17-2022 [facility] Radiology Study observation (narrative) [facility] CBC W MANUAL DIFFon 10-04-20 22 ATYPICAL LYMPH # Normal [facility] Comment on above: Performed By: #### C SHIRA #### [facility] [address] [place] [address] Dr. Spring Nash ATYPICAL LYMPH % Normal [facility] Comment on above: Performed By: #### C SHIRA #### [facility] [address] [place] [address] Dr. Spring Nash BAND # 0.0 103/ul Normal 0.0-0.3 [facility] Comment on above: Performed By: #### C BCERICKSON #### [facility] [address] [place] [address] Dr. Spring Nash BAND % 0 % Normal 0-5 [facility] Comment on above: Performed By: #### C BCERICKSON #### [facility] [address] [place] [address] Dr. Spring Nash BASOM # 0.00 103/ul Normal 0.00-0.10 [facility] Comment on above: Performed By: #### C SHIRA #### [facility] [address] [place] [address] Dr. Spring Nash BASOM % 0.0 % Critically low 0.2-2.0 [facility] Comment on above: Performed By: #### C SHIRA #### [facility] [address] [place] [address] Dr. Spring Nash BLAST # Normal [facility] Comment on above: Performed By: #### C SHIRA #### [facility] [address] [place] [address] Dr. Spring Nash BLAST % Normal [facility] Comment on above: Performed By: #### C SHIRA #### [facility] [address] [place] [address] Dr. Spring Nash CORRECTED WBC Normal 4.0-11.0 [facility] Comment on above: Performed By: #### C SHIRA #### [facility] [address] [place] [address] Dr. Spring Nash EOS # 0.00 103/ul Normal 0.00-0.70 [facility] Comment on above: Performed By: #### C SHIRA #### [facility] [address] [place] [address] Dr. Spring Nash EOS% 0.0 % Critically low 0.9-7.0 [facility] Comment on above: Performed By: #### C SHIRA #### [facility] [address] [place] [address] Dr. Spring Nash HCT 28.5 % Critically low 42.0-54.0 [facility] Comment on above: Performed By: #### C SHIRA #### [facility] [address] [place] [address] Dr. Spring Nash HGB 9.5 g/dl Critically low 14.0-18.0 [facility] Comment on above: Performed By: #### C SHIRA #### [facility] [address] [address] [address] Spring Nash LYMPHM # 0.00 103/ul Critically low 1.20-3.80 [facility] Comment on above: Performed By: #### C SHIRA #### [facility] [address] [place] [address] Dr. Spring Nash LYMPHM% 0.0 % Critically low 20.5-60.0 [facility] Comment on above: Performed By: #### C SHIRA #### [facility] [address] [place] [address] Dr. Spring Nash MCH 30.3 pg Normal 25.9-34.0 [facility] Comment on above: Performed By: #### C SHIRA #### [facility] [address] [place] [address] Dr. Spring Nash MCHC 33.3 g/dl Normal 29.9-35.2 [facility] Comment on above: Performed By: #### C SHIRA #### [facility] [address] [place] [address] Dr. Spring Nash MCV 90.8 fL Normal 80.0-94.0 [facility] Comment on above: Performed By: #### C SHIRA #### [facility] [address] [place] [address] Dr. Spring Nash METAMYELOCYTE # Normal [facility] Comment on above: Performed By: #### C SHIRA #### [facility] [address] [place] [address] Dr. Spring Nash METAMYELOCYTE % Normal [facility] Comment on above: Performed By: #### C SHIRA #### [facility] [address] [address] [address] Spring Nash MONOM# 0.00 103/ul Critically low 0.30-0.80 [facility] Comment on above: Performed By: #### C SHIRA #### [facility] [address] [address] [address] Spring Nash MONOM% 0.0 % Critically low 1.7-12.0 [facility] Comment on above: Performed By: #### C SHIRA #### [facility] [address] [place] [address] Dr. Spring Nash MPV 12.0 fL Normal 9.5-13.5 [facility] Comment on above: Performed By: #### C SHIRA #### [facility] [address] [place] [address] Dr. Spring Nash MYELOCYTE # Normal [facility] Comment on above: Performed By: #### C SHIRA #### [facility] [address] [address] [address] Spring Nash MYELOCYTE % Normal [facility] Comment on above: Performed By: #### C SHIRA #### [facility] [address] [address] [address] Spring Nash NRBC Normal [facility] Comment on above: Performed By: #### C SHIRA #### [facility] [address] [place] [address] Dr. Spring Nash PLT 182 103/ul Normal 150-450 [facility] Comment on above: Performed By: #### C SHIRA #### [facility] [address] [place] [address] Dr. Spring Nash RBC 3.14 106/ul Critically low 4.70-6.10 [facility] Comment on above: Performed By: #### C SHIRA #### [facility] [address] [place] [address] Dr. Spring Nash RDW 13.4 % Normal 11.0-15.0 [facility] Comment on above: Performed By: #### C SHIRA #### [facility] [address] [address] [address] Spring Nash SEG # 11.40 103/ul Critically high 1.40-6.50 [facility] Comment on above: Performed By: #### C BCMAN #### [facility] [address] [address] [address] Spring Nash SEG % 100.0 % Critically high 43.0-75.0 [facility] Comment on above: Performed By: #### C BCMAN #### [facility] [address] [address] [address] Spring Nash WBC 11.4 103/ul Critically high 4.0-11.0 [facility] Comment on above: Performed By: #### C SHIRA #### [facility] [address] [address] [address] Spring Nash POINT OF CARE GLUCOSEon 09-14 Glucose [Mass/Vol] 243 mg/dL Critically high 74-106 [facility] Comment on above: Performed By: #### P OCGLUC #### [facility] [address] [address] [address] Spring Nash Glucose [Mass/Vol] 219 mg/dL Critically high 74-106 [facility] Comment on above: Performed By: #### P OCGLUC #### [facility] [address] [place] [address] Dr. Spring Nash PROF 14(COMP METB)on 022 Albumin [Mass/Vol] 2.5 g/dL Critically low 3.4-5.0 [facility] Comment on above: Performed By: #### C MP #### [facility] [address] [address] [address] Spring Nash Albumin/Globulin [Mass ratio] 0.7 {ratio} Normal [facility] Comment on above: Performed By: #### C MP #### [facility] [address] [address] [address] Spring Nash ALP [Catalytic activity/Vol] 96 U/L Normal 46-116 [facility] Comment on above: Performed By: #### C MP #### [facility] [address] [address] [address] Spring Nash ALT [Catalytic activity/Vol] 16 U/L Normal 16-63 [facility] Comment on above: Performed By: #### C MP #### [facility] [address] [place] [address] Dr. Spring Nash Anion gap [Moles/Vol] 12.3 mmol/L Normal [facility] Comment on above: Performed By: #### C MP #### [facility] [address] [place] [address] Dr. Spring Nash AST [Catalytic activity/Vol] 20 U/L Normal 15-37 [facility] Comment on above: Performed By: #### C MP #### [facility] [address] [place] [address] Dr. Spring Nash Bilirubin [Mass/Vol] 0.2 mg/dL Normal 0.2-1.0 [facility] Comment on above: Performed By: #### C MP #### [facility] [address] [place] [address] Dr. Spring Nash Calcium [Mass/Vol] 8.2 mg/dL Critically low 8.5-10.1 [facility] Comment on above: Performed By: #### C MP #### [facility] [address] [place] [address] Dr. Spring Nash Chloride [Moles/Vol] 102 mmol/L Normal 98-107 [facility] Comment on above: Performed By: #### C MP #### [facility] [address] [place] [address] Dr. Spring Nash CO2 [Moles/Vol] 24.4 mmol/L Normal 21.0-32.0 [facility] Comment on above: Performed By: #### C MP #### [facility] [address] [place] [address] Dr. Spring Nash Creatinine [Mass/Vol] 1.96 mg/dL Critically high 0.70-1.30 [facility] Comment on above: Performed By: #### C MP #### [facility] [address] [place] [address] Dr. Spring Nash EGFR-AF TURKISH 44 mL/min/1.73m2 Critically low >=60 [facility] Comment on above: Performed By: #### C MP #### [facility] [address] [address] [address] Spring Nash EGFR-NON AF TURKISH 36 mL/min/1.73m2 Critically low >=60 [facility] Comment on above: Performed By: #### C MP #### [facility] [address] [address] [address] Spring Nash Globulin (S) [Mass/Vol] 3.5 g/dL Normal [facility] Comment on above: Performed By: #### C MP #### [facility] [address] [address] [address] Spring Nash Glucose [Mass/Vol] 196 mg/dL Critically high 74-106 [facility] Comment on above: Performed By: #### C MP #### [facility] [address] [address] [address] Spring Nash Potassium [Moles/Vol] 4.7 mmol/L Normal 3.5-5.1 [facility] Comment on above: Performed By: #### C MP #### [facility] [address] [address] [address] Spring Nash Protein [Mass/Vol] 6.0 g/dL Critically low 6.4-8.2 [facility] Comment on above: Performed By: #### C MP #### [facility] [address] [address] [address] Spring Nash Sodium [Moles/Vol] 134 mmol/L Critically low 136-145 [facility] Comment on above: Performed By: #### C MP #### [facility] [address] [address] [address] Spring Nash Urea nitrogen [Mass/Vol] 47.0 mg/dL Critically high 7.0-18.0 [facility] Comment on above: Performed By: #### C MP #### [facility] [address] [address] [address] Spring Nash Urea nitrogen/Creatinine [Mass ratio] 24.0 mg/mg Normal [facility] Comment on above: Performed By: #### C MP #### [facility] [address] [place] [address] Dr. Spring Nash CARDIAC EDWARD 3-6on 2 CK [Catalytic activity/Vol] 262 U/L Normal 39-308 [facility] Comment on above: Performed By: #### C MP, HSTROPN, BNP #### [facility] [address] [place] [address] Dr. Spring Nash CK.MB [Mass/Vol] 3.55 ng/mL Normal <=3.60 [facility] Comment on above: Performed By: #### C MP, HSTROPN, BNP #### [facility] [address] [place] [address] Dr. Spring Nash HSTROP 25.8 pg/mL Normal 4.0-76.1 [facility] Comment on above: Result Comment: CUT- OFF POINTS HAVE BEEN ESTABLISHED BASED ON THE FOURTH UNIVERSAL DEFINITIONS OF MYOCARDIAL INFARCTION. THE UPPER REFERENCE LIMIT (URL) OF TROPONIN, DEFINED THE 99TH PERCENTILE OF cTnI DISTRIBUTION IN A REFERENCE POPULATION, HAS BEEN CONFIRMED THE DECISION THRESHOLD FOR LA DIAGNOSIS. Performed By: #### C MP, HSTROPN, BNP #### [facility] [address] [place] [address] Dr. Spring Nash CTA CHEST WO W [...] artery calcifications. Central airway is patent. Developing zdyrg-[id number]-bimkwdlw bilateral pleural effusions occupying 20-30% of each [...] artifact and are not well evaluated. Developing zguew-oo-llcszoat bilateral pleural effusions occupying 20-30% of each [...] by: SHRUTI HANCOCK Date: 2022-10-02 22:48 Normal [facility] ECHO LIMITED STUDYon 022 ECHO LIMITED STUDY Patient: MELVI MINOR Exam Date: 10/03/2022 : 1970 Gender:M Ordering : DR KEVON CASTELLANO . Admission #: [id number] Family : DR DONITA TENORIO D.O. Order #: [id number] CLICK HERE TO VIEW EXAM ECHOCARDIOGRAM REPORT [...] Lord M.D. on 10/03/2022 at 13:17 Normal [facility] GLUCOSE BLOODon 10-03-2022 Glucose [Mass/Vol] 551 mg/dL Critically high 74-106 [facility] Comment on above: Performed By: #### B MP #### [facility] [address] [address] [address] Spring Nash GLYCOHEMOGLOBIN A1Con 2021 ADA RECOMMENDATION SEE BELOW Normal [facility] Comment on above: Result Comment: ADA RECOMMENDED LIMIT 4.0 - 6.0 ADA THERAPEUTIC TARGET < 7.0 ACTION SUGGESTED > 7.0 Performed By: #### B MP #### [facility] [address] [address] [address] Spring Nash Glucose [Mass/Vol] 301 mg/dL Normal [facility] Comment on above: Performed By: #### B MP #### [facility] [address] [address] [address] Spring Nash HbA1c (Bld) [Mass fraction] 12.1 % Critically high 4.5-6.2 [facility] Comment on above: Performed By: #### B MP #### [facility] [address] [address] [address] Spring Nash POINT OF CARE GLUCOSEon 09-14 Glucose [Mass/Vol] 367 mg/dL Critically high [facility] Comment on above: Performed By: #### C SHAUN VERDE, BNP #### [facility] [address] [address] [address] Spring Nash Glucose [Mass/Vol] 215 mg/dL Critically high [address] [place] [address] Comment on above: Performed By: #### C SHAUN VERDE, BNP #### [facility] [address] [address] [address] Spring Nash Glucose [Mass/Vol] 404 mg/dL Critically high [address] [place] [address] Comment on above: Performed By: #### P OCGLUC #### [facility] [address] [address] [address] Spring Nash Glucose [Mass/Vol] 486 mg/dL Critically high [address] [place] [address] Comment on above: Performed By: #### P OCGLUC #### [facility] [address] [address] [address] Spring Nash Glucose [Mass/Vol] 542 mg/dL Critically high [address] [place] [address] Comment on above: Result Comment: Resu lt Not Confirmed Performed By: #### P OCGLUC #### [facility] [address] [place] [address] Dr. Spring Nash ACETONE SERUMon 10-02-2022 ACETONE Negative Normal NEGATIVE [facility] Comment on above: Performed By: #### P OCGLUC #### [facility] [address] [place] [address] Dr. Spring Nash BNPon 10-02-2022 Natriuretic peptide B (Bld) [Mass/Vol] 3142.0 pg/mL Critically high <=900.0 [facility] Comment on above: Performed By: #### P OCGLUC #### [facility] [address] [place] [address] Dr. Spring Nash CARDIAC EDWARD 3-6on 2 CK [Catalytic activity/Vol] 250 U/L Normal 39-308 [facility] Comment on above: Performed By: #### P OCGLUC #### [facility] [address] [place] [address] Dr. Spring Nash CK.MB [Mass/Vol] 3.41 ng/mL Normal <=3.60 [facility] Comment on above: Performed By: #### P OCGLUC #### [facility] [address] [place] [address] Dr. Spring Nash HSTROP 27.1 pg/mL Normal 4.0-76.1 [facility] Comment on above: Result Comment: CUT- OFF POINTS HAVE BEEN ESTABLISHED BASED ON THE FOURTH UNIVERSAL DEFINITIONS OF MYOCARDIAL INFARCTION. THE UPPER REFERENCE LIMIT (URL) OF TROPONIN, DEFINED THE 99TH PERCENTILE OF cTnI DISTRIBUTION IN A REFERENCE POPULATION, HAS BEEN CONFIRMED THE DECISION THRESHOLD FOR LA DIAGNOSIS. Performed By: #### P OCGLUC #### [facility] [address] [place] [address] Dr. Spring Nash CBC AUTO DIFFon 10-02-2022 BASO # 0.0 103/ul Normal 0.0-0.1 [facility] Comment on above: Performed By: #### C MP #### [facility] [address] [place] [address] Dr. Spring Nash Basophils/100 WBC (Bld) 0.2 % Normal 0.2-2.0 [facility] Comment on above: Performed By: #### C MP #### [facility] [address] [place] [address] Dr. Spring Nash EO # 0.4 103/ul Normal 0.0-0.7 [facility] Comment on above: Performed By: #### C MP #### [facility] [address] [address] [address] Spring Nash Eosinophils/100 WBC (Bld) 3.5 % Normal 0.9-7.0 [facility] Comment on above: Performed By: #### C MP #### [facility] [address] [address] [address] Spring Nash Erythrocyte distribution width (RBC) [Ratio] 13.0 % Normal 11.0-15.0 [facility] Comment on above: Performed By: #### C MP #### [facility] [address] [place] [address] Dr. Spring Nash Hematocrit (Bld) [Volume fraction] 34.2 % Critically low 42.0-54.0 [facility] Comment on above: Performed By: #### C MP #### [facility] [address] [place] [address] Dr. Spring Nash Hemoglobin (Bld) [Mass/Vol] 11.8 g/dL Critically low 14.0-18.0 [facility] Comment on above: Performed By: #### C MP #### [facility] [address] [address] [address] Spring Nash IG # 0.07 10e3/ul Critically high 0.00-0.03 [facility] Comment on above: Performed By: #### C MP #### [facility] [address] [place] [address] Dr. Spring Nash IG % 0.6 % Critically high 0.0-0.5 [facility] Comment on above: Performed By: #### C MP #### [facility] [address] [place] [address] Dr. Spring Nash LYMPH # 1.2 103/ul Normal 1.2-3.8 [facility] Comment on above: Performed By: #### C MP #### [facility] [address] [place] [address] Dr. Spring Nash Lymphocytes/100 WBC (Bld) 9.5 % Critically low 20.5-60.0 [facility] Comment on above: Performed By: #### C MP #### [facility] [address] [place] [address] Dr. Spring Nash MANUAL DIFF REQ NO Normal [facility] Comment on above: Performed By: #### C MP #### [facility] [address] [place] [address] Dr. Spring Nash MCH (RBC) [Entitic mass] 31.3 pg Normal 25.9-34.0 [facility] Comment on above: Performed By: #### C MP #### [facility] [address] [place] [address] Dr. Spring Nash MCHC (RBC) [Mass/Vol] 34.5 g/dL Normal 29.9-35.2 [facility] Comment on above: Performed By: #### C MP #### [facility] [address] [place] [address] Dr. Spring Nash MCV (RBC) [Entitic vol] 90.7 fL Normal 80.0-94.0 [facility] Comment on above: Performed By: #### C MP #### [facility] [address] [place] [address] Dr. Spring Nash MONO # 0.6 103/ul Normal 0.3-0.8 [facility] Comment on above: Performed By: #### C MP #### [facility] [address] [place] [address] Dr. Spring Nash Monocytes/100 WBC (Bld) 4.8 % Normal 1.7-12.0 [facility] Comment on above: Performed By: #### C MP #### [facility] [address] [place] [address] Dr. Spring Nash NEUT # 10.1 103/ul Critically high 1.4-6.5 [facility] Comment on above: Performed By: #### C MP #### [facility] [address] [place] [address] Dr. Spring Nash Neutrophils/100 WBC (Bld) 81.4 % Critically high 43.0-75.0 [facility] Comment on above: Performed By: #### C MP #### [facility] [address] [place] [address] Dr. Spring Nash Platelet mean volume (Bld) [Entitic vol] 12.5 fL Normal 9.5-13.5 [facility] Comment on above: Performed By: #### C MP #### [facility] [address] [place] [address] Dr. Spring Nash PLT 212 103/ul Normal 150-450 [facility] Comment on above: Performed By: #### C MP #### [facility] [address] [place] [address] Dr. Spring Nahs RBC 3.77 106/ul Critically low 4.70-6.10 [facility] Comment on above: Performed By: #### C MP #### [facility] [address] [place] [address] Dr. Spring Nash WBC 12.4 103/ul Critically high 4.0-11.0 [facility] Comment on above: Performed By: #### C MP #### [facility] [address] [place] [address] Dr. Spring Nash CULTURE BLOODon 10-02-2022 Microscopic examination of blood, culture Culture Observations: NO GROWTH AT 5 DAYS. Normal [facility] Comment on above: Performed By: #### P OCGLUC #### [facility] [address] [place] [address] Dr. Spring Nash Microscopic examination of blood, culture Culture Observations: NO GROWTH AT 5 DAYS. Normal [facility] Comment on above: Performed By: #### P OCGLUC #### [facility] [address] [place] [address] Dr. Spring Nash [facility] 09[facility]14 SARS-CoV-2 (COVID-19) RNA HONEY+probe Ql (Unsp spec) Not detected Normal NOT DETECTED [facility] Comment on above: Result Comment: When [...] for this test is supported by the [place] of [employer] and Human Service's declaration that [...] By: #### C MP, HSTROPN, BNP #### [facility] [address] [place] [address] Dr. Spring Nash INFLUENZA A AND B AGon 10-02 INFLUENZA A AG Negative Normal NEGATIVE SEE COMMENT [facility] Comment on above: Performed By: #### C MP, HSTROPN, BNP #### [facility] [address] [place] [address] Dr. Spring Nash INFLUENZA B AG Negative Normal NEGATIVE SEE COMMENT [facility] Comment on above: Performed By: #### C MP, HSTROPN, BNP #### [facility] [address] [place] [address] Dr. Spring Nash INTERNAL CONTROLS Within Normal Limits Normal Wi thin Normal Limits [facility] Comment on above: Performed By: #### C MP, HSTROPN, BNP #### [facility] [address] [place] [address] Dr. Spring Nash LACTATE/LACTIC ACIDon 2021 Lactate [Moles/Vol] 1.5 mmol/L Normal 0.4-1.9 [facility] Comment on above: Performed By: #### C MP, HSTROPN, BNP #### [facility] [address] [place] [address] Dr. Spring Nash PROF 14(COMP METB)on 022 Albumin [Mass/Vol] 2.7 g/dL Critically low 3.4-5.0 [facility] Comment on above: Performed By: #### P OCGLUC #### [facility] [address] [address] [address] Spring Nash Albumin/Globulin [Mass ratio] 0.7 {ratio} Normal [facility] Comment on above: Performed By: #### P OCGLUC #### [facility] [address] [address] [address] Spring Nash ALP [Catalytic activity/Vol] 169 U/L Critically high 46-116 [facility] Comment on above: Performed By: #### P OCGLUC #### [facility] [address] [address] [address] Spring Nash ALT [Catalytic activity/Vol] 13 U/L Critically low 16-63 [facility] Comment on above: Performed By: #### P OCGLUC #### [facility] [address] [address] [address] Spring Nash Anion gap [Moles/Vol] 13.7 mmol/L Normal [facility] Comment on above: Performed By: #### P OCGLUC #### [facility] [address] [address] [address] Spring Nash AST [Catalytic activity/Vol] 24 U/L Normal 15-37 [facility] Comment on above: Performed By: #### P OCGLUC #### [facility] [address] [place] [address] Dr. Spring Nash Bilirubin [Mass/Vol] 0.6 mg/dL Normal 0.2-1.0 [facility] Comment on above: Performed By: #### P OCGLUC #### [facility] [address] [address] [address] Spring Nash Calcium [Mass/Vol] 8.1 mg/dL Critically low 8.5-10.1 [facility] Comment on above: Performed By: #### P OCGLUC #### [facility] [address] [address] [address] Spring Nash Chloride [Moles/Vol] 102 mmol/L Normal 98-107 [facility] Comment on above: Performed By: #### P OCGLUC #### [facility] [address] [place] [address] Dr. Spring Nash CO2 [Moles/Vol] 25.1 mmol/L Normal 21.0-32.0 [facility] Comment on above: Performed By: #### P OCGLUC #### [facility] [address] [address] [address] Spring Nash Creatinine [Mass/Vol] 1.55 mg/dL Critically high 0.70-1.30 [facility] Comment on above: Performed By: #### P OCGLUC #### [facility] [address] [address] [address] Spring Nash EGFR-AF TURKISH 58 mL/min/1.73m2 Critically low >=60 [facility] Comment on above: Performed By: #### P OCGLUC #### [facility] [address] [address] [address] Spring Nash EGFR-NON AF TURKISH 48 mL/min/1.73m2 Critically low >=60 [facility] Comment on above: Performed By: #### P OCGLUC #### [facility] [address] [address] [address] Spring Nash Globulin (S) [Mass/Vol] 4.1 g/dL Normal [facility] Comment on above: Performed By: #### P OCGLUC #### [facility] [address] [address] [address] Spring Nash Glucose [Mass/Vol] 421 mg/dL Critically high 74-106 [facility] Comment on above: Performed By: #### P OCGLUC #### [facility] [address] [address] [address] Spring Nash Potassium [Moles/Vol] 4.8 mmol/L Normal 3.5-5.1 [facility] Comment on above: Performed By: #### P OCGLUC #### [facility] [address] [address] [address] Spring Nash Protein [Mass/Vol] 6.8 g/dL Normal 6.4-8.2 [facility] Comment on above: Performed By: #### P OCGLUC #### [facility] [address] [address] [address] Spring Nash Sodium [Moles/Vol] 136 mmol/L Normal 136-145 [facility] Comment on above: Performed By: #### P OCGLUC #### [facility] [address] [place] [address] Dr. Spring Nash Urea nitrogen [Mass/Vol] 29.0 mg/dL Critically high 7.0-18.0 [facility] Comment on above: Performed By: #### P OCGLUC #### [facility] [address] [place] [address] Dr. Spring Nash Urea nitrogen/Creatinine [Mass ratio] 18.7 mg/mg Normal [facility] Comment on above: Performed By: #### P OCGLUC #### [facility] [address] [place] [address] Dr. Spring Nash PROTIMEon 10-02-2022 INR Coag (PPP) [Relative time] {INR} Normal [facility] Comment on above: Performed By: #### P OCGLUC #### [facility] [address] [place] [address] Dr. Spring Nash INR GUIDELINES SEE BELOW Normal [facility] Comment on above: Result Comment: SHAWN RED INR: 2.0 - 3.0 CONDITIONS NOT LISTED BELOW 2.5 - 3.5 FOR PROSTHETIC HEART VALVE REPLACEMENT 2.5 - 3.5 RECURRENT THROMBOSIS Performed By: #### P OCGLUC #### [facility] [address] [place] [address] Dr. Spring Nash PT Coag (PPP) [Time] 9.8 s Normal 9.0-11.6 [facility] Comment on above: Performed By: #### P OCGLUC #### [facility] [address] [place] [address] Dr. Spring Nash PTTon 10-02-2022 aPTT Coag (Bld) [Time] 25.9 s Normal 22.3-36.2 [facility] Comment on above: Performed By: #### P OCGLUC #### [facility] [address] [place] [address] Dr. Spring Nash TROPONIN, HIGH SENSITIVITYon 10-02-2022 HSTROP 29.9 pg/mL Normal 4.0-76.1 [facility] Comment on above: Result Comment: CUT- OFF POINTS HAVE BEEN ESTABLISHED BASED ON THE FOURTH UNIVERSAL DEFINITIONS OF MYOCARDIAL INFARCTION. THE UPPER REFERENCE LIMIT (URL) OF TROPONIN, DEFINED THE 99TH PERCENTILE OF cTnI DISTRIBUTION IN A REFERENCE POPULATION, HAS BEEN CONFIRMED THE DECISION THRESHOLD FOR LA DIAGNOSIS. Performed By: #### P OCGLUC #### [facility] [address] [place] [address] Dr. Spring Nash TSHon 10-02-2022 TSH 2.707 uIU/mL Normal 0.358-3.74 0 [facility] Comment on above: Performed By: #### P OCGLUC #### [facility] [address] [place] [address] Dr. Spring Nash CBC AUTO DIFFon 07-31-2022 BASO # 0.0 103/ul Normal 0.0-0.1 [facility] Comment on above: Performed By: #### C MP, HSTROPN, BNP #### [facility] [address] [place] [address] Dr. Spring Nash Basophils/100 WBC (Bld) 0.5 % Normal 0.2-2.0 [facility] Comment on above: Performed By: #### C MP, HSTROPN, BNP #### [facility] [address] [place] [address] Dr. Spring Nash EO # 0.3 103/ul Normal 0.0-0.7 [facility] Comment on above: Performed By: #### C MP, HSTROPN, BNP #### [facility] [address] [place] [address] Dr. Spring Nash Eosinophils/100 WBC (Bld) 4.0 % Normal 0.9-7.0 [facility] Comment on above: Performed By: #### C MP, HSTROPN, BNP #### [facility] [address] [place] [address] Dr. Spring Nash Erythrocyte distribution width (RBC) [Ratio] 12.1 % Normal 11.0-15.0 [facility] Comment on above: Performed By: #### C MP, HSTROPN, BNP #### [facility] [address] [place] [address] Dr. Spring Nash Hematocrit (Bld) [Volume fraction] 37.4 % Critically low 42.0-54.0 [facility] Comment on above: Performed By: #### C MP, HSTROPN, BNP #### [facility] [address] [place] [address] Dr. Spring Nash Hemoglobin (Bld) [Mass/Vol] 12.9 g/dL Critically low 14.0-18.0 [facility] Comment on above: Performed By: #### C MP, HSTROPN, BNP #### [facility] [address] [place] [address] Dr. Spring Nash IG # 0.04 10e3/ul Critically high 0.00-0.03 [facility] Comment on above: Performed By: #### C MP, HSTROPN, BNP #### [facility] [address] [place] [address] Dr. Spring Nash IG % 0.5 % Normal 0.0-0.5 [facility] Comment on above: Performed By: #### C MP, HSTROPN, BNP #### [facility] [address] [place] [address] Dr. Spring Nash LYMPH # 1.7 103/ul Normal 1.2-3.8 [facility] Comment on above: Performed By: #### C MP, HSTROPN, BNP #### [facility] [address] [place] [address] Dr. Spring Nash Lymphocytes/100 WBC (Bld) 21.1 % Normal 20.5-60.0 [facility] Comment on above: Performed By: #### C MP, HSTROPN, BNP #### [facility] [address] [place] [address] Dr. Spring Nash MANUAL DIFF REQ NO Normal [facility] Comment on above: Performed By: #### C MP, HSTROPN, BNP #### [facility] [address] [place] [address] Dr. Spring Nash MCH (RBC) [Entitic mass] 31.0 pg Normal 25.9-34.0 [facility] Comment on above: Performed By: #### C MP, HSTROPN, BNP #### [facility] [address] [place] [address] Dr. Spirng Nash MCHC (RBC) [Mass/Vol] 34.5 g/dL Normal 29.9-35.2 [facility] Comment on above: Performed By: #### C MP, HSTROPN, BNP #### [facility] [address] [place] [address] Dr. Spring Nash MCV (RBC) [Entitic vol] 89.9 fL Normal 80.0-94.0 [facility] Comment on above: Performed By: #### C MP, HSTROPN, BNP #### [facility] [address] [place] [address] Dr. Spring Nash MONO # 0.6 103/ul Normal 0.3-0.8 [facility] Comment on above: Performed By: #### C MP, HSTROPN, BNP #### [facility] [address] [place] [address] Dr. Spring Nash Monocytes/100 WBC (Bld) 7.9 % Normal 1.7-12.0 [facility] Comment on above: Performed By: #### C MP, HSTROPN, BNP #### [facility] [address] [place] [address] Dr. Spring Nash NEUT # 5.2 103/ul Normal 1.4-6.5 [facility] Comment on above: Performed By: #### C MP, HSTROPN, BNP #### [facility] [address] [place] [address] Dr. Spring Nash Neutrophils/100 WBC (Bld) 66.0 % Normal 43.0-75.0 [facility] Comment on above: Performed By: #### C MP, HSTROPN, BNP #### [facility] [address] [address] [address] Spring Nash Platelet mean volume (Bld) [Entitic vol] 11.5 fL Normal 9.5-13.5 [facility] Comment on above: Performed By: #### C MP, HSTROPN, BNP #### [facility] [address] [address] [address] Spring Nash PLT 220 103/ul Normal 150-450 [facility] Comment on above: Performed By: #### C MP, HSTROPN, BNP #### [facility] [address] [address] [address] Spring Nash RBC 4.16 106/ul Critically low 4.70-6.10 [facility] Comment on above: Performed By: #### C MP, HSTROPN, BNP #### [facility] [address] [address] [address] Spring Nash WBC 7.8 103/ul Normal 4.0-11.0 [facility] Comment on above: Performed By: #### C MP, HSTROPN, BNP #### [facility] [address] [place] [address] STROKE HEAD WOon [...] LISA DURAN Date: 2022-07-31 21:18 Normal [facility]on 07-14 SARS-CoV-2 (COVID-19) RNA HONEY+probe Ql (Unsp spec) Not detected Normal NOT DETECTED [facility] Comment on above: Result Comment: When [...] for this test is supported by the [place] of Health and Human Service's declaration that [...] By: #### C MP, HSTROPN, BNP #### [facility] [address] [address] [address] Spring Nash PROF 14(COMP METB)on 022 Albumin [Mass/Vol] 3.1 g/dL Critically low 3.4-5.0 [facility] Comment on above: Performed By: #### P OCGLUC #### [facility] [address] [address] [address] Spring Nash Albumin/Globulin [Mass ratio] 0.9 {ratio} Normal [facility] Comment on above: Performed By: #### P OCGLUC #### [facility] [address] [place] [address] Dr. Spring Nash ALP [Catalytic activity/Vol] 124 U/L Critically high 46-116 [facility] Comment on above: Performed By: #### P OCGLUC #### [facility] [address] [address] [address] Spring Nash ALT [Catalytic activity/Vol] 18 U/L Normal 16-63 [facility] Comment on above: Performed By: #### P OCGLUC #### [facility] [address] [address] [address] Spring Nash Anion gap [Moles/Vol] 9.1 mmol/L Normal [facility] Comment on above: Performed By: #### P OCGLUC #### [facility] [address] [address] [address] Spring Nash AST [Catalytic activity/Vol] 11 U/L Critically low 15-37 [facility] Comment on above: Performed By: #### P OCGLUC #### [facility] [address] [address] [address] Spring Nash Bilirubin [Mass/Vol] 0.3 mg/dL Normal 0.2-1.0 [facility] Comment on above: Performed By: #### P OCGLUC #### [facility] [address] [address] [address] Spring Nash Calcium [Mass/Vol] 8.9 mg/dL Normal 8.5-10.1 [facility] Comment on above: Performed By: #### P OCGLUC #### [facility] [address] [address] [address] Spring Nash Chloride [Moles/Vol] 102 mmol/L Normal 98-107 [facility] Comment on above: Performed By: #### P OCGLUC #### [facility] [address] [address] [address] Spring Nash CO2 [Moles/Vol] 31.1 mmol/L Normal 21.0-32.0 [facility] Comment on above: Performed By: #### P OCGLUC #### [facility] [address] [address] [address] Spring Nash Creatinine [Mass/Vol] 1.58 mg/dL Critically high 0.70-1.30 [facility] Comment on above: Performed By: #### P OCGLUC #### [facility] [address] [address] [address] Spring Nash EGFR-AF TURKISH 56 mL/min/1.73m2 Critically low >=60 [facility] Comment on above: Performed By: #### P OCGLUC #### [facility] [address] [address] [address] Spring Nash EGFR-NON AF TURKISH 46 mL/min/1.73m2 Critically low >=60 [facility] Comment on above: Performed By: #### P OCGLUC #### [facility] [address] [address] [address] Spring Nash Globulin (S) [Mass/Vol] 3.4 g/dL Normal [facility] Comment on above: Performed By: #### P OCGLUC #### [facility] [address] [address] [address] Spring Nash Glucose [Mass/Vol] 218 mg/dL Critically high 74-106 [facility] Comment on above: Performed By: #### P OCGLUC #### [facility] [address] [address] [address] Spring Nash Potassium [Moles/Vol] 4.2 mmol/L Normal 3.5-5.1 [facility] Comment on above: Performed By: #### P OCGLUC #### [facility] [address] [address] [address] Spring Nash Protein [Mass/Vol] 6.5 g/dL Normal 6.4-8.2 [facility] Comment on above: Performed By: #### P OCGLUC #### [facility] [address] [address] [address] Spring Nash Sodium [Moles/Vol] 138 mmol/L Normal 136-145 [facility] Comment on above: Performed By: #### P OCGLUC #### [facility] [address] [address] [address] Spring Nash Urea nitrogen [Mass/Vol] 22.0 mg/dL Critically high 7.0-18.0 [facility] Comment on above: Performed By: #### P OCGLUC #### [facility] [address] [place] [address] Dr. Spring Nash Urea nitrogen/Creatinine [Mass ratio] 13.9 mg/mg Normal [facility] Comment on above: Performed By: #### P OCGLUC #### [facility] [address] [place] [address] Dr. Spring Nash PROTIMEon 07-31-2022 INR Coag (PPP) [Relative time] {INR} Normal [facility] Comment on above: Performed By: #### C MP #### [facility] [address] [place] [address] Dr. Spring Nash INR GUIDELINES SEE BELOW Normal [facility] Comment on above: Result Comment: SHAWN RED INR: 2.0 - 3.0 CONDITIONS NOT LISTED BELOW 2.5 - 3.5 FOR PROSTHETIC HEART VALVE REPLACEMENT 2.5 - 3.5 RECURRENT THROMBOSIS Performed By: #### C MP #### [facility] [address] [place] [address] Dr. Spring Nash PT Coag (PPP) [Time] 9.7 s Normal 9.0-11.6 [facility] Comment on above: Performed By: #### C MP #### [facility] [address] [place] [address] Dr. Spring Nash PTTon 07-31-2022 aPTT Coag (Bld) [Time] 23.0 s Normal 22.3-36.2 [facility] Comment on above: Performed By: #### C MP #### [facility] [address] [place] [address] Dr. Spring Nash TROPONIN, HIGH SENSITIVITYon 07-31-2022 HSTROP 36.6 pg/mL Normal 4.0-76.1 [facility] Comment on above: Result Comment: CUT- OFF POINTS HAVE BEEN ESTABLISHED BASED ON THE FOURTH UNIVERSAL DEFINITIONS OF MYOCARDIAL INFARCTION. THE UPPER REFERENCE LIMIT (URL) OF TROPONIN, DEFINED THE 99TH PERCENTILE OF cTnI DISTRIBUTION IN A REFERENCE POPULATION, HAS BEEN CONFIRMED THE DECISION THRESHOLD FOR LA DIAGNOSIS. Performed By: #### P OCGLUC #### [facility] [address] [place] [address] Dr. Spring Nash TSHon 07-31-2022 TSH 2.334 uIU/mL Normal 0.358-3.74 0 [facility] Comment on above: Performed By: #### P OCGLUC #### [facility] [id number] Spring Nash XR CHEST 1 Von [...] by: CLIVE HOLLAND Date: 2022-07-31 20:54 Normal [facility] A1C HEMOGLOBINon 05-16-2022 HbA1c (Bld) [Mass fraction] 8.6 % [facility] Other Glucose - FINGER STICKon Glucose [Mass/Vol] 109 mg/dL [facility] Other HbA1c (Bld) [Mass fraction]o n 05-16-2022 A1C HEMOGLOBIN [employer] [facility] [place] Other Basophils Auto (Bld) [#/Vol] Ordered By: Suzan Bennett on 04-21-2022 Basophils (Bld) [#/Vol] 0.1 10*3/uL 0.0-0.2 [facility] Basophils/100 WBC Auto (Bld) Ordered By: Suzan Bennett on 04-21-2022 Basophils/100 WBC (Bld) 0.6 % [facility] Blood hemoglobin measurement (mass/volume)Ordered By: Suzan Bennett on 04-21-2022 Hemoglobin (Bld) [Mass/Vol] 11.7 g/dL 13.0-17.0 [facility] Blood leukocytes automated c ount (number/volume)Ordered By: Suzan Bennett on 04-21-2022 WBC (Bld) [#/Vol] 9.0 10*3/uL 4.5-11.0 [facility] Creatinine and Glomerular fi ltration rate.predicted panel (S/P/Bld)Ordered By: Suzan Bennett on 04-21-2022 Creatinine [Mass/Vol] 1.75 mg/dL 0.64-1.27 [facility] Eosinophils Auto (Bld) [#/Vo l]Ordered By: Suzan Bennett on 04-21-2022 Eosinophils (Bld) [#/Vol] 0.3 10*3/uL 0.0-0.45 [facility] Eosinophils/100 WBC Auto (Bl d)Ordered By: Suzan Bennett on 04-21-2022 Eosinophils/100 WBC (Bld) 3.0 % [facility] Erythrocyte distribution wid th Auto (RBC) [Ratio]Ordered By: Suzan Bennett on 04-21-2022 Erythrocyte distribution width (RBC) [Ratio] 13.2 % 12.0-14.8 [facility] Estimated glomerular filtrat ion rate (GFR) non- AmericanOrdered By: Suzan Bennett on 04-21-2022 GFR/1.73 sq M.predicted among non-blacks MDRD (S/P/Bld) [Vol rate/Area] 41 mL/Min [facility] Hematocrit Auto (Bld) [Volum e fraction]Ordered By: Suzan Bennett on 04-21-2022 Hematocrit (Bld) [Volume fraction] 34.0 % 38.8-50.0 [facility] - Chemistry and C hemistry - challengeOrdered By: Sinan Holly on 04-21-2022 Natriuretic peptide B (Bld) [Mass/Vol] 51.0 pg/mL 5-100 [facility] - Hematology and Cell countsOrdered By: Suzan Bennett on 04-21-2022 Nucleated RBC/100 WBC (Bld) [Ratio] 0.0 % 0-0.5 [facility] Lymphocytes Auto (Bld) [#/Vo l]Ordered By: Suzan Bennett on 04-21-2022 Lymphocytes (Bld) [#/Vol] 1.6 10*3/uL 1.00-4.8 [facility] Lymphocytes/100 WBC Auto (Bl d)Ordered By: Suzan Bennett on 04-21-2022 Lymphocytes/100 WBC (Bld) 17.4 % [facility] MCH Auto (RBC) [Entitic mass ]Ordered By: Suzan Bennett on 04-21-2022 MCH (RBC) [Entitic mass] 31.2 pg 27.5-35.2 [facility] MCHC Auto (RBC) [Mass/Vol]Or dered By: Suzan Bennett on 04-21-2022 MCHC (RBC) [Mass/Vol] 34.3 g/dL 32.5-35.6 [facility] MCV Auto (RBC) [Entitic vol] Ordered By: Suzan Bennett on 04-21-2022 MCV (RBC) [Entitic vol] 90.8 fL 83.5-101 [facility] Monocytes Auto (Bld) [#/Vol] Ordered By: Suzan Bennett on 04-21-2022 Monocytes (Bld) [#/Vol] 0.6 10*3/uL 0.0-0.8 [facility] Monocytes/100 WBC Auto (Bld) Ordered By: Suzan Bennett on 04-21-2022 Monocytes/100 WBC (Bld) 6.9 % [facility] Neutrophils Auto (Bld) [#/Vo l]Ordered By: Suzan Bennett on 04-21-2022 Neutrophils (Bld) [#/Vol] 6.5 10*3/uL 1.8-7.7 [facility] Neutrophils/100 WBC Auto (Bl d)Ordered By: Suzan Bennett on 04-21-2022 Neutrophils/100 WBC (Bld) 72.1 % [facility] No Panel InformationOrdered By: Suzan Bennett on 04-21-2022 Estimated GFR () 50 mL/Min [facility] Comment on above: GFR estimated refere nce range: According to KDOQI guidelines, <60 ml/min/1.73m2 is sufficient to diagnose a patient with chronic kidney disease. Pharmacy Creatinine Clearance (Chem 57.15 [facility] Platelet mean volume Auto (B ld) [Entitic vol]Ordered By: Suzan Bennett on 04-21-2022 Platelet mean volume (Bld) [Entitic vol] 9.9 fL 6.6-10.1 [facility] Platelets Auto (Bld) [#/Vol] Ordered By: Suzan Bennett on 04-21-2022 Platelets (Bld) [#/Vol] 202 10*3/uL 150-450 [facility] RBC Auto (Bld) [#/Vol]Ordere d By: Suzan Bennett on 04-21-2022 RBC (Bld) [#/Vol] 3.75 10*6/uL 3.90-5.60 [facility] Serum or plasma calcium regi urement (mass/volume)Ordered By: Suzan Bennett on 04-21-2022 Calcium [Mass/Vol] 9.0 mg/dL 8.2-10.2 [facility] Serum or plasma chloride taryn surement (moles/volume)Ordered By: Suzan Bennett on 04-21-2022 Chloride [Moles/Vol] 99 mmol/L 95-114 [facility] Serum or plasma glucose regi urement (mass/volume)Ordered By: Suzan Bennett on 04-21-2022 Glucose [Mass/Vol] 215 mg/dL 70-100 [facility] Comment on above: ADA recommended refe rence range Random Glucose Reference Range is dependent on time and content of last meal. Glucose of more than 200 mg/dL in a nonstressed, ambulatory subject supports the diagnosis of Diabetes Mellitus. Serum or plasma potassium me asurement (moles/volume)Ordered By: Suzan Bennett on 04-21-2022 Potassium [Moles/Vol] 4.5 mmol/L 3.5-5.1 [facility] Serum or plasma sodium measu rement (moles/volume)Ordered By: Suzan Bennett on 04-21-2022 Sodium [Moles/Vol] 138 mmol/L 136-146 [facility] Serum or plasma total carbon dioxide measurement (moles/volume)Ordered By: Suzan Bennett on 04-21-2022 CO2 [Moles/Vol] 28.5 mmol/L 22.0-30.0 [facility] Serum or plasma urea nitroge n measurement (mass/volume)Ordered By: Suzan Bennett on 04-21-2022 Urea nitrogen [Mass/Vol] 42 mg/dL 9-23 [facility] Troponin I.cardiac [Mass/vol ume] in Serum or Plasma by High sensitivity methodOrdered By: Sinan Holly on 04-21-2022 Troponin I.cardiac High sensitivity method [Mass/Vol] 18 pg/mL 0-20 [facility] INTRAVITREAL INJECTION, PHAR MACOLOGIC AGENT [...] and verbal post procedure care education. Notes [id number] [facility] Radiology Study observation (narrative) [facility] OCT, RETINA - OU - BOTH EYES on 03-21-2022 [facility] Radiology Study observation (narrative) [facility] Office Visit (Cardiology)on 03-07-2022 Follow-up visit Diagnoses/Problems [...] in adult Healthy Weight Tips; Status:Complete; Done: [id number] Hypertension, Ischemic cardiomyopathy Renew: Bumetanide 1 MG [...] we can help. You may also call 6-906-[phone] for free resources and assistance.; Status:Complete; Done: [id number] Tobacco Use Screening; Status:Complete; Done: [id number] Unlinked Stop: Potassium Chloride [facility] 20 [...] contact the office if new symptoms arise. 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 Chief Complaint I am feeling ok CHADNLER MINOR is being seen for a week [...] Isosorbide Mon (more content not included)... Normal [facility] Tobacco Screening.on 022 Fall risk assessment a) No falls within the last year [facility]-Sanddanielle y 250 DO Work Phone: Tobacco use status [facility] a) Yes M -[facility]-Tobias y 250 DO Work Phone: Tobacco Screening. Yes -[facility]-[place] y 250 DO Work Phone: [...] contact the office if new symptoms arise. RESEARCH LEADER in 2 weeks Encourage healthy lifestyle choices [...] DAILY NEEDED. (more content not included)... Normal [facility] Tobacco Screening.on 022 Adult depression screening assessment No [facility]-Tobias burleson 250 DO Work Phone: Adult depression screening assessment Yes [facility]-T[facility]ias y 250 DO Work Phone: Fall risk assessment b) One or more fall s in the last year [facility]-T[facility]ias y 250 DO Work Phone: Tobacco use status CP a) Yes [facility]-Tobias y 250 DO Work Phone: Tobacco Screening. Yes [facility]-Tobias y 250 DO Work Phone: Tobacco Screening. 1-Several days [facility] Heart-Tobias y 250 DO Work Phone: Tobacco Screening. 0-Not at all [facility] Heart-Tobias y 250 DO Work Phone: Tobacco Screening. 2-More than half the days [facility]-Tobias y 250 DO Work Phone: Tobacco Screening. Somewhat Difficult [facility]-Tobias y 250 DO Work Phone: Glucose - FINGER STICKon Glucose [Mass/Vol] 194 mg/dL [facility] [employer] Other Tobacco Screening.on 022 Adult depression screening assessment No [facility]hit Heart-Sand[place] y 250 DO Work Phone: Adult depression screening assessment Yes [facility] Heart-[place] y 250 DO Work Phone: Tobacco use status [facility] a) Yes M [facility]-[place] y 250 DO Work Phone: Tobacco Screening. Yes [facility]-[place] y 250 DO Work Phone: Tobacco Screening. 3-Nearly every day [facility] Heart-Tobias y 250 DO Work Phone: Tobacco Screening. 0-Not at all [facility] Heart-[place]athy[place] y 250 DO Work Phone: Tobacco Screening. 2-More than half the days [facility] Heart-Tobias y 250 DO Work Phone: Tobacco Screening. 1-Several days [facility] Heart-[place] y 250 DO Work Phone: Tobacco Screening. Very Difficult [facility] Heart-Tobias y 250 DO Work Phone: Basophils Auto (Bld) [#/Vol] Ordered By: Rodriguez Wallace on 01-12-2022 Basophils (Bld) [#/Vol] 0.0 10*3/uL 0.0-0.2 [facility] Basophils/100 WBC Auto (Bld) Ordered By: Rodriguez Wallace on 01-12-2022 Basophils/100 WBC (Bld) 0.6 % [facility] Blood hemoglobin measurement (mass/volume)Ordered By: Rodriguez Wallace on 01-12-2022 Hemoglobin (Bld) [Mass/Vol] 11.5 g/dL 13.0-17.0 [facility] Blood leukocytes automated c ount (number/volume)Ordered By: Rodriguez Wallace on 01-12-2022 WBC (Bld) [#/Vol] 8.4 10*3/uL 4.5-11.0 [facility] Creatinine and Glomerular fi ltration rate.predicted panel (S/P/Bld)Ordered By: Rodriguez Wallace on 01-12-2022 Creatinine [Mass/Vol] 1.21 mg/dL 0.64-1.27 [facility] Eosinophils Auto (Bld) [#/Vo l]Ordered By: Rodriguez Wallace on 01-12-2022 Eosinophils (Bld) [#/Vol] 0.5 10*3/uL 0.0-0.45 [facility] Eosinophils/100 WBC Auto (Bl d)Ordered By: Rodriguez Wallace on 01-12-2022 Eosinophils/100 WBC (Bld) 6.3 % [facility] Erythrocyte distribution wid th Auto (RBC) [Ratio]Ordered By: Rodriguez Wallace on 01-12-2022 Erythrocyte distribution width (RBC) [Ratio] 14.2 % 12.0-14.8 [facility] Estimated glomerular filtrat ion rate (GFR) non- AmericanOrdered By: Rodriguez Wallace on 01-12-2022 GFR/1.73 sq M.predicted among non-blacks MDRD (S/P/Bld) [Vol rate/Area] > 60 mL/Min [facility] Glucose Glucometer (BldC) [M ass/Vol]Ordered By: Rodriguez Wallace on 01-12-2022 Glucose [Mass/Vol] 161 mg/dL [facility] Comment on above: Random Glucose Refer ence Range is dependent on time and content of last meal. Glucose of more than 200 mg/dL in a nonstressed, ambulatory subject supports the diagnosis of Diabetes Mellitus. Hematocrit Auto (Bld) [Volum e fraction]Ordered By: Rodriguez Wallace on 01-12-2022 Hematocrit (Bld) [Volume fraction] 34.0 % 38.8-50.0 [facility] - Chemistry and C hemistry - challengeOrdered By: Rodriguez Wallace on 01-12-2022 Magnesium [Mass/Vol] 1.9 mg/dL 1.6-2.6 [facility] Laboratory - Hematology and Cell countsOrdered By: Rodriguez Wallace on 01-12-2022 Nucleated RBC/100 WBC (Bld) [Ratio] 0.1 % 0-0.5 [facility] Lymphocytes Auto (Bld) [#/Vo l]Ordered By: Rodriguez Wallace on 01-12-2022 Lymphocytes (Bld) [#/Vol] 1.6 10*3/uL 1.00-4.8 [facility] Lymphocytes/100 WBC Auto (Bl d)Ordered By: Rodriguez Wallace on 01-12-2022 Lymphocytes/100 WBC (Bld) 19.6 % [facility] MCH Auto (RBC) [Entitic mass ]Ordered By: Rodriguez Wallace on 01-12-2022 MCH (RBC) [Entitic mass] 30.9 pg 27.5-35.2 [facility] MCHC Auto (RBC) [Mass/Vol]Or dered By: Rodriguez Wallace on 01-12-2022 MCHC (RBC) [Mass/Vol] 33.9 g/dL 32.5-35.6 [facility] MCV Auto (RBC) [Entitic vol] Ordered By: Rodriguez Wallace on 01-12-2022 MCV (RBC) [Entitic vol] 91.2 fL 83.5-101 [facility] Monocytes Auto (Bld) [#/Vol] Ordered By: Rodriguez Wallace on 01-12-2022 Monocytes (Bld) [#/Vol] 0.6 10*3/uL 0.0-0.8 [facility] Monocytes/100 WBC Auto (Bld) Ordered By: Rodriguez Wallace on 01-12-2022 Monocytes/100 WBC (Bld) 7.2 % [facility] Neutrophils Auto (Bld) [#/Vo l]Ordered By: Rodriguez Wallace on 01-12-2022 Neutrophils (Bld) [#/Vol] 5.5 10*3/uL 1.8-7.7 [facility] Neutrophils/100 WBC Auto (Bl d)Ordered By: Rodriguez Wallace on 01-12-2022 Neutrophils/100 WBC (Bld) 66.3 % [facility] No Panel InformationOrdered By: Rodriguez Wallace on 01-12-2022 Estimated GFR () > 60 mL/Min [facility] Comment on above: GFR estimated refere nce range: According to KDOQI guidelines, <60 ml/min/1.73m2 is sufficient to diagnose a patient with chronic kidney disease. Pharmacy Creatinine Clearance (Chem 82.85 [facility] Platelet mean volume Auto (B ld) [Entitic vol]Ordered By: Rodriguez Wallace on 01-12-2022 Platelet mean volume (Bld) [Entitic vol] 9.8 fL 6.6-10.1 [facility] Platelets Auto (Bld) [#/Vol] Ordered By: Rodriguez Wallace on 01-12-2022 Platelets (Bld) [#/Vol] 202 10*3/uL 150-450 [facility] RBC Auto (Bld) [#/Vol]Ordere d By: Rodriguez Wallace on 01-12-2022 RBC (Bld) [#/Vol] 3.73 10*6/uL 3.90-5.60 [facility] Serum or plasma calcium regi urement (mass/volume)Ordered By: Rodriguez Wallace on 01-12-2022 Calcium [Mass/Vol] 8.8 mg/dL 8.2-10.2 [facility] Serum or plasma chloride taryn surement (moles/volume)Ordered By: Rodriguez Wallace on 01-12-2022 Chloride [Moles/Vol] 103 mmol/L 95-114 [facility] Serum or plasma glucose regi urement (mass/volume)Ordered By: Rodriguez Wallace on 01-12-2022 Glucose [Mass/Vol] 69 mg/dL 70-100 [facility] Comment on above: Delta: [phone] on -[id number] recommended reference rangeRandom Glucose Reference Range is dependent on time and content of last meal. Glucose of more than 200 mg/dL in a nonstressed, ambulatory subject supports the diagnosis of Diabetes Mellitus. Serum or plasma potassium me asurement (moles/volume)Ordered By: Rodriguez Wallace on 01-12-2022 Potassium [Moles/Vol] 4.2 mmol/L 3.5-5.1 [facility] Serum or plasma sodium measu rement (moles/volume)Ordered By: Rodriguez Wallace on 01-12-2022 Sodium [Moles/Vol] 137 mmol/L 136-146 [facility] Serum or plasma total carbon dioxide measurement (moles/volume)Ordered By: Rodriguez Wallace on 01-12-2022 CO2 [Moles/Vol] 26.2 mmol/L 22.0-30.0 [facility] Serum or plasma urea nitroge n measurement (mass/volume)Ordered By: Rodriguez Wallace on 01-12-2022 Urea nitrogen [Mass/Vol] 26 mg/dL 9-23 [facility] Activated partial thrombopla stin time (aPTT) in platelet poor plasma by coagulation aOrdered By: Rodriguez Wallace on 01-11-2022 aPTT Coag (PPP) [Time] 27.5 s 25.1-36.5 [facility] Albumin [Mass/volume] in Ser um or PlasmaOrdered By: Rodriguez Wallace on 01-11-2022 Albumin [Mass/Vol] 2.7 g/dL 3.2-5.5 [facility] Cholesterol [Mass/volume] in Serum or PlasmaOrdered By: Rodriguez Wallace on 01-11-2022 Cholesterol [Mass/Vol] 182 mg/dL 140-200 [facility] Comment on above: Chol less than 200 m g/dl low riskChol 201-239 mg/dl borderline riskChol 240 mg/dl and greater high risk Cholesterol in LDL Calc [Mas s/Vol]Ordered By: Rodriguez Wallace on 01-11-2022 Cholesterol in LDL [Mass/Vol] 114 mg/dL 0-100 [facility] Comment on above: LDL ATP III CLASSIFI CATIONLDL less than 100 mg/dL OptimalLDL 100-129 mg/dL Near or above optimalLDL 130-159 mg/dL Borderline highLDL 160-189 mg/dL HighLDL greater than 189 mg/dL Very high Cholesterol in VLDL Calc [Ma ss/Vol]Ordered By: Rodriguez Wallace on 01-11-2022 Cholesterol in VLDL [Mass/Vol] 38 mg/dL [facility] Globulin Calc (S) [Mass/Vol] Ordered By: Rodriguez Wallace on 01-11-2022 Globulin (S) [Mass/Vol] 2.4 g/dL [facility] - CoagulationOrde red By: Rodriguez Wallace on 01-11-2022 PT Coag (PPP) [Time] 10.1 s 9.0-12.9 [facility] No Panel InformationOrdered By: Rodriguez Wallace on 01-11-2022 Bedside Glucose Comment Glu2: cleaned meter [facility] Platelet poor plasma interna tional normalized ratio (INR) by coagulation assay (relatOrdered By: Rodriguez Wallace on 01-11-2022 INR Coag (PPP) [Relative time] 0.9 {INR} [facility] Comment on above: INR Therapeutic Rang [...] [Mass/volume] in Ser um or PlasmaOrdered By: Rodriguez Wallace on 01-11-2022 Protein [Mass/Vol] 5.1 g/dL 6.1-7.9 [facility] Serum or plasma alanine walton otransferase measurement without P-5'-P (enzymatic activiOrdered By: Rodriguez Wallace on 01-11-2022 ALT No additional P-5'-P [Catalytic activity/Vol] 10 U/L 10-60 [facility] Serum or plasma albumin/glob ulin mass ratioOrdered By: Rodriguez Wallace on 01-11-2022 Albumin/Globulin [Mass ratio] 1.1 {ratio} [facility] Serum or plasma alkaline mari sphatase measurement (enzymatic activity/volume)Ordered By: Rodriguez Wallace on 01-11-2022 ALP [Catalytic activity/Vol] 110 U/L 32-92 [facility] Serum or plasma aspartate am inotransferase measurement (enzymatic activity/volume)Ordered By: Rodriguez Wallace on 01-11-2022 AST [Catalytic activity/Vol] 10 U/L 10-42 [facility] Serum or plasma high density lipoprotein (HDL) cholesterol measurementOrdered By: Rodriguez Wallace on 01-11-2022 Cholesterol in HDL [Mass/Vol] 30 mg/dL 29-71 [facility] Comment on above: HDL CHOL ATP-III CLA SSIFICATION Cardiovascular RiskHDL > or equal to 60 mg/dL LOWHDL < 40 mg/dL HIGH Serum or plasma total biliru bin measurement (mass/volume)Ordered By: Rodriguez Wallace on 01-11-2022 Bilirubin [Mass/Vol] 0.3 mg/dL 0.3-1.2 [facility] Serum or plasma total choles terol/high density lipoprotein (HDL) cholesterol mass ratOrdered By: Rodriguez Wallace on 01-11-2022 Cholesterol.total/Courtney sterol in HDL [Mass ratio] 6.1 {ratio} [facility] Triglyceride [Mass/volume] i n Serum or PlasmaOrdered By: Rodriguez Wallace on 01-11-2022 Triglyceride [Mass/Vol] 191 mg/dL 35-149 [facility] Comment on above: TRIG ATP III CLASSIF ICATIONTRIG less than 150 mg/dL NormalTRIG 150-199 mg/dL Borderline highTRIG 200-500 mg/dL High TRIG greater than 500 mg/dL Very highStandard traceable to the Center for Disease Conrtrol and Prevention (CDC) test method. Troponin I.cardiac [Mass/vol ume] in Serum or Plasma by High sensitivity methodOrdered By: Rodriguez Wallace on 01-11-2022 Troponin I.cardiac High sensitivity method [Mass/Vol] 46 pg/mL 0-20 [facility] Basophils Auto (Bld) [#/Vol] Ordered By: Mario Phillips on 01-10-2022 Basophils (Bld) [#/Vol] 0.1 10*3/uL 0.0-0.2 [facility] Basophils/100 WBC Auto (Bld) Ordered By: Mario Phillips on 01-10-2022 Basophils/100 WBC (Bld) 1.2 % [facility] Beta-hydroxybutyric acid taryn surementOrdered By: Mario Phillips on 01-10-2022 Beta hydroxybutyrate [Mass/Vol] 0.17 mmol/L 0.05-0.27 [facility] Blood hemoglobin measurement (mass/volume)Ordered By: Mario Phillips on 01-10-2022 Hemoglobin (Bld) [Mass/Vol] 12.0 g/dL 13.0-17.0 [facility] Blood leukocytes automated c ount (number/volume)Ordered By: Mario Phillips on 01-10-2022 WBC (Bld) [#/Vol] 9.8 10*3/uL 4.5-11.0 [facility] COVID-19 Positive/NegativeOr dered By: Mario Phillips on 01-10-2022 SARS-CoV-2 (COVID-19) N gene HONEY+probe Ql (Resp) Negative Negative [facility] Comment on above: Testing for SARS-CoV -2 by RT-PCRThis test was developed and its performance characteristics determined by [employer] ([employer] and validated at the [facility]. This test has not been FDA [...] (COVID-19) Ag IA.rapid Ql (Resp) Negative Negative [facility] Comment on above: This is a duplicate Estelita SARS Antigen (RACIEL) result to be used for statistical tracking purpose only. Creatinine and Glomerular fi ltration rate.predicted panel (S/P/Bld)Ordered By: Mario Phillips on 01-10-2022 Creatinine [Mass/Vol] 1.30 mg/dL 0.64-1.27 [facility] Eosinophils Auto (Bld) [#/Vo l]Ordered By: Mario Phillips on 01-10-2022 Eosinophils (Bld) [#/Vol] 0.4 10*3/uL 0.0-0.45 [facility] Eosinophils/100 WBC Auto (Bl d)Ordered By: Mario Phillips on 01-10-2022 Eosinophils/100 WBC (Bld) 4.2 % [facility] Erythrocyte distribution wid th Auto (RBC) [Ratio]Ordered By: Mario Phillips on 01-10-2022 Erythrocyte distribution width (RBC) [Ratio] 14.0 % 12.0-14.8 [facility] Estimated glomerular filtrat ion rate (GFR) non- AmericanOrdered By: Mario Phillips on 01-10-2022 GFR/1.73 sq M.predicted among non-blacks MDRD (S/P/Bld) [Vol rate/Area] 58 mL/Min [facility] Glucose mean value [Mass/vol ume] in Blood Estimated from glycated hemoglobinOrdered By: Rodriguez Wallace on 01-10-2022 Average glucose Estimated from glycated hemoglobin (Bld) [Mass/Vol] 407 mg/dL [facility] Hematocrit Auto (Bld) [Volum e fraction]Ordered By: Mario Phillips on 01-10-2022 Hematocrit (Bld) [Volume fraction] 35.2 % 38.8-50.0 [facility] Hemoglobin A1c percentageOrd ered By: Rodriguez Wallace on 01-10-2022 HbA1c (Bld) [Mass fraction] 15.8 % 4.3-5.6 [facility] Comment on above: Increased risk for d iabetes: 5.7 - 6.4diabetes: >6.4glycemic control for adults with diabetes: <7.0 Laboratory - Chemistry and C hemistry - challengeOrdered By: Mario Phillips on 01-10-2022 Natriuretic peptide B (Bld) [Mass/Vol] 252.0 pg/mL 5-100 [facility] Laboratory - Hematology and Cell countsOrdered By: Mario Phillips on 01-10-2022 Nucleated RBC/100 WBC (Bld) [Ratio] 0.0 % 0-0.5 [facility] Laboratory - Microbiology an d Antimicrobial susceptibilityOrdered By: Mario Phillips on 01-10-2022 SARS-CoV-2 (COVID-19) RNA HONEY+probe Ql (Unsp spec) N/A [facility] Lymphocytes Auto (Bld) [#/Vo l]Ordered By: Mario Phillips on 01-10-2022 Lymphocytes (Bld) [#/Vol] 1.2 10*3/uL 1.00-4.8 [facility] Lymphocytes/100 WBC Auto (Bl d)Ordered By: Mario Phillips on 01-10-2022 Lymphocytes/100 WBC (Bld) 12.3 % [facility] MCH Auto (RBC) [Entitic mass ]Ordered By: Mario Phillips on 01-10-2022 MCH (RBC) [Entitic mass] 31.1 pg 27.5-35.2 [facility] MCHC Auto (RBC) [Mass/Vol]Or dered By: Mario Phillips on 01-10-2022 MCHC (RBC) [Mass/Vol] 34.1 g/dL 32.5-35.6 [facility] MCV Auto (RBC) [Entitic vol] Ordered By: Mario Phillips on 01-10-2022 MCV (RBC) [Entitic vol] 91.2 fL 83.5-101 [facility] Monocytes Auto (Bld) [#/Vol] Ordered By: Mario Phillips on 01-10-2022 Monocytes (Bld) [#/Vol] 0.5 10*3/uL 0.0-0.8 [facility] Monocytes/100 WBC Auto (Bld) Ordered By: Mario Phillips on 01-10-2022 Monocytes/100 WBC (Bld) 4.8 % [facility] Neutrophils Auto (Bld) [#/Vo l]Ordered By: Mario Phillips on 01-10-2022 Neutrophils (Bld) [#/Vol] 7.6 10*3/uL 1.8-7.7 [facility] Neutrophils/100 WBC Auto (Bl d)Ordered By: Mario Phillips on 01-10-2022 Neutrophils/100 WBC (Bld) 77.5 % [facility] No Panel InformationOrdered By: Mario Phillips on 01-10-2022 SARS Antigen (LFIA) [facility] Estimated GFR () > 60 mL/Min [facility] Comment on above: GFR estimated refere nce range: According to KDOQI guidelines, <60 ml/min/1.73m2 is sufficient to diagnose a patient with chronic kidney disease. Pharmacy Creatinine Clearance (Chem 76.93 [facility] No Panel InformationOrdered By: Rodriguez Wallace on 01-10-2022 D-Dimer Quantitative (PE/DVT) < 200 ng/mL 0-243 [facility] Comment on above: The reference range [...] volume (Bld) [Entitic vol] 9.8 fL 6.6-10.1 [facility] Platelets Auto (Bld) [#/Vol] Ordered By: Mario Phillips on 01-10-2022 Platelets (Bld) [#/Vol] 197 10*3/uL 150-450 [facility] RBC Auto (Bld) [#/Vol]Ordere d By: Mario Phillips on 01-10-2022 RBC (Bld) [#/Vol] 3.86 10*6/uL 3.90-5.60 [facility] Serum or plasma calcium regi urement (mass/volume)Ordered By: Mario Phillips on 01-10-2022 Calcium [Mass/Vol] 8.3 mg/dL 8.2-10.2 [facility] Serum or plasma chloride taryn surement (moles/volume)Ordered By: Mario Phillips on 01-10-2022 Chloride [Moles/Vol] 94 mmol/L 95-114 [facility] Serum or plasma glucose regi urement (mass/volume)Ordered By: Mario Phillips on 01-10-2022 Glucose [Mass/Vol] 525 mg/dL 70-100 [facility] Comment on above: Critical valueresult calledat 1528 on 01/10/22ADA recommended reference rangeRandom Glucose Reference Range is dependent on time and content of last meal. Glucose of more than 200 mg/dL in a nonstressed, ambulatory subject supports the diagnosis of Diabetes Mellitus. Serum or plasma potassium me asurement (moles/volume)Ordered By: Mario Phillips on 01-10-2022 Potassium [Moles/Vol] 4.6 mmol/L 3.5-5.1 [facility] Serum or plasma sodium measu rement (moles/volume)Ordered By: Mario Phillips on 01-10-2022 Sodium [Moles/Vol] 126 mmol/L 136-146 [facility] Serum or plasma total carbon dioxide measurement (moles/volume)Ordered By: Mario Phillips on 01-10-2022 CO2 [Moles/Vol] 22.7 mmol/L 22.0-30.0 [facility] Serum or plasma urea nitroge n measurement (mass/volume)Ordered By: Mario Phillips on 01-10-2022 Urea nitrogen [Mass/Vol] 17 mg/dL 9-23 [facility] TSH DL <= 0.005 mIU/L QnOrde red By: Rodriguez Wallace on 01-10-2022 TSH Qn 4.22 m[IU]/L 0.45-5.33 [facility] Troponin I.cardiac [Mass/vol ume] in Serum or Plasma by High sensitivity methodOrdered By: Mario Phillips on 01-10-2022 Troponin I.cardiac High sensitivity method [Mass/Vol] 43 pg/mL 0-20 [facility] COVID Quick Testingon 2020 Result Positive [facility] [employer] Other A1C HEMOGLOBINon 07-20-2021 HbA1c (Bld) [Mass fraction] % [facility] [employer] Other Glucose - FINGER STICKon Glucose [Mass/Vol] 573 mg/dL [facility] [employer] Other HbA1c (Bld) [Mass fraction]o n 07-20-2021 A1C HEMOGLOBIN [facility] [employer] Other CBC With Platelet and Differ entialon 12-29-2020 Basophils (Bld) [#/Vol] 0.0 10*3/uL Normal 0.0-0.2 [facility] Comment on above: Performed By: #### C BCWD ####[facility] [facility] [phone] Basophils/100 WBC (Bld) 0.4 % Normal [facility] Comment on above: Performed By: #### C BCWD ####[facility] [facility] [phone] Eosinophils (Bld) [#/Vol] 0.4 10*3/uL Normal 0.0-0.7 [facility] Comment on above: Performed By: #### C BCWD ####[facility] [facility] [phone] Eosinophils/100 WBC (Bld) 3.6 % Normal [facility] Comment on above: Performed By: #### C BCWD ####[facility] [facility] [phone] Erythrocyte distribution width (RBC) [Ratio] 16.1 % Critically high 11.5-14.5 [facility] Comment on above: Performed By: #### C BCWD ####[facility] [facility] [phone] Hematocrit (Bld) [Volume fraction] 33.1 % Low 42.0-52.0 [facility] Comment on above: Performed By: #### C BCWD ####[facility] [facility] [phone] Hemoglobin (Bld) [Mass/Vol] 10.8 g/dL Low 14.0-18.0 [facility] Comment on above: Performed By: #### C BCWD ####[facility] [facility] [phone] Lymphocytes (Bld) [#/Vol] 1.1 10*3/uL Normal 1.0-4.8 [facility] Comment on above: Performed By: #### C BCWD ####[facility] [facility] [phone] Lymphocytes/100 WBC (Bld) 9.4 % Normal [facility] Comment on above: Performed By: #### C BCWD ####[facility] [facility] [phone] MCH (RBC) [Entitic mass] 28.6 pg Normal 27.0-31.3 [facility] Comment on above: Performed By: #### C BCWD ####[facility] [facility] [phone] MCHC (RBC) [Mass/Vol] 32.8 % Low 33.0-37.0 [facility] Comment on above: Performed By: #### C BCWD ####[facility] [facility] [phone] MCV (RBC) [Entitic vol] 87.4 fL Normal 80.0-100.0 M [facility] Comment on above: Performed By: #### C BCWD ####[facility] [facility] [phone] Monocytes (Bld) [#/Vol] 0.7 10*3/uL Normal 0.2-0.8 [facility] Comment on above: Performed By: #### C BCWD ####[facility] [facility] [phone] Monocytes/100 WBC (Bld) 5.9 % Normal M [facility] Comment on above: Performed By: #### C BCWD ####[facility] [facility] [phone] Neutrophils (Bld) [#/Vol] 9.4 10*3/uL Critically high 1.4-6.5 [facility] Comment on above: Performed By: #### C BCWD ####[facility] [facility] [phone] Neutrophils/100 WBC (Bld) 80.7 % Normal [facility] Comment on above: Performed By: #### C BCWD ####[facility] [facility] [phone] Platelets (Bld) [#/Vol] 314 10*3/uL Normal 130-400 [facility] Comment on above: Performed By: #### C BCWD ####[facility] [facility] [phone] RBC (Bld) [#/Vol] 3.79 10*6/uL Low 4.70-6.10 [facility] Comment on above: Performed By: #### C BCWD ####[facility] [facility] [phone] WBC (Bld) [#/Vol] 11.7 10*3/uL Critically high 4.8-10.8 [facility] Comment on above: Performed By: #### C BCWD ####[facility] [facility] [phone] CBC auto differentialon 12-12 Basophils (Bld) [#/Vol] 0.0 10*3/uL 0.0 - 0.2 K/uL [facility] [employer] Phone: Basophils/100 WBC (Bld) 0.4 % M [employer] Phone: Eosinophils (Bld) [#/Vol] 0.4 10*3/uL 0.0 - 0.7 K/uL [employer] Phone: Eosinophils/100 WBC (Bld) 3.6 % [employer] Phone: Erythrocyte distribution width (RBC) [Ratio] 16.1 % High 11.5 - 14.5 % [employer] Phone: Hematocrit (Bld) [Volume fraction] 33.1 % Low 42.0 - 52.0 % [employer] Phone: Hemoglobin (Bld) [Mass/Vol] 10.8 g/dL Low 14.0 - 18.0 g/dL [employer] Phone: Interpretation and review of laboratory results Abnormal [employer] Phone: Lymphocytes (Bld) [#/Vol] 1.1 10*3/uL 1.0 - 4.8 K/uL [employer] Phone: Lymphocytes/100 WBC (Bld) 9.4 % [employer] Phone: MCH (RBC) [Entitic mass] 28.6 pg 27.0 - 31.3 pg [employer] Phone: MCHC (RBC) [Mass/Vol] 32.8 % Low 33.0 - 37.0 % [employer] Phone: MCV (RBC) [Entitic vol] 87.4 fL 80.0 - 100.0 fL [employer] Phone: Monocytes (Bld) [#/Vol] 0.7 10*3/uL 0.2 - 0.8 K/uL [employer] Phone: Monocytes/100 WBC (Bld) 5.9 % M [employer] Phone: Neutrophils Absolute 9.4 K/uL High 1.4 - 6 .5 K/uL [employer] Phone: Neutrophils/100 WBC (Bld) 80.7 % [employer] Phone: Platelets (Bld) [#/Vol] 314 10*3/uL 130 - 400 K[facility]L [facility] Phone: RBC (Bld) [#/Vol] 3.79 10*6/uL Low [facility] Phone: WBC (Bld) [#/Vol] 11.7 10*3/uL High 4.8 - 10.8 K/uL [employer] Phone: Comprehensive Metabolic Pane l reflex Mgon 12-29-2020 Anion gap [Moles/Vol] 19 mmol/L Critically high 9-15 [facility] Comment on above: Performed By: #### C MPX ####[facility] [facility] [phone] Albumin [Mass/Vol] 3.7 g/dL Normal 3.5-4.6 [facility] Comment on above: Performed By: #### C MPX ####[facility] [facility] [phone] ALP [Catalytic activity/Vol] 109 U/L Critically high 35-104 [facility] Comment on above: Performed By: #### C MPX ####[facility] [facility] [phone] ALT [Catalytic activity/Vol] 13 U/L Normal 0-41 [facility] Comment on above: Performed By: #### C MPX ####[facility] [facility] [phone] AST [Catalytic activity/Vol] 15 U/L Normal 0-40 [facility] Comment on above: Performed By: #### C MPX ####[facility] [facility] [phone] Bilirubin [Mass/Vol] mg/dL Normal 0.2-0.7 [facility] Comment on above: Performed By: #### C MPX ####[facility] [place] [phone] Calcium [Mass/Vol] 9.4 mg/dL Normal 8.5-9.9 [facility] Comment on above: Performed By: #### C MPX ####[facility] [facility] [phone] Chloride [Moles/Vol] 104 mmol/L Normal 95-107 [facility] Comment on above: Performed By: #### C MPX ####[facility] [facility] [phone] CO2 [Moles/Vol] 22 mmol/L Normal 20-31 [facility] Comment on above: Performed By: #### C MPX ####[facility] [facility] [phone] Creatinine [Mass/Vol] 1.50 mg/dL Critically high 0.70-1.20 [facility] Comment on above: Performed By: #### C MPX ####[facility] [facility] [phone] GFR/1.73 sq M predicted among blacks MDRD (S/P/Bld) [Vol rate/Area] mL/min/{1.73_m2} Normal >60 [facility] Comment on above: Result Comment: >60 mL/min/1.73m2 EGFR, calc. for ages 18 and older using the MDRD formula (not corrected for weight), is valid for stable renal function. Performed By: #### C MPX ####[facility] [facility] [phone] GFR/1.73 sq M.predicted MDRD (S/P/Bld) [Vol rate/Area] 49.6 mL/min/{1.73_m2} Low >60 [facility] Comment on above: Result Comment: >60 mL/min/1.73m2 EGFR, calc. for ages 18 and older using the MDRD formula (not corrected for weight), is valid for stable renal function. Performed By: #### C MPX ####[facility] [facility] [phone] Globulin (S) [Mass/Vol] 3.2 g/dL Normal 2.3-3.5 [facility] Comment on above: Performed By: #### C MPX ####[facility] [facility] [phone] Glucose [Mass/Vol] 211 mg/dL Critically high 70-99 M [facility] Comment on above: Performed By: #### C MPX ####[facility] [facility] [phone] Potassium reflex Mg 5.2 mEq/L Critically high 3.4-4.9 [facility] Comment on above: Performed By: #### C MPX ####[facility] [facility] [phone] Protein [Mass/Vol] 6.9 g/dL Normal 6.3-8.0 [facility] Comment on above: Performed By: #### C MPX ####[facility] [facility] [phone] Sodium [Moles/Vol] 145 mmol/L Critically high 135-144 [facility] Comment on above: Performed By: #### C MPX ####[facility] [facility] [phone] Urea nitrogen [Mass/Vol] 54 mg/dL Critically high 6-20 [facility] Comment on above: Performed By: #### C MPX ####[facility] [facility] [phone] Comprehensive Metabolic Pane l w/ Reflex to MGon 12-29-2020 Albumin [Mass/Vol] 3.7 g/dL 3.5 - 4.6 g/dL [facility] [employer] Work Phone: ALP [Catalytic activity/Vol] 109 U/L High 35 - 104 U/L [facility] Work Phone: ALT [Catalytic activity/Vol] 13 U/L 0 - 41 U/L [facility] [employer] Work Phone: Anion gap [Moles/Vol] 19 mmol/L High [facility] Work Phone: AST [Catalytic activity/Vol] 15 U/L 0 - 40 U/L [facility] [employer] Work Phone: Bilirubin Ql (U) <0.2 0.2 - 0.7 mg/dL [facility] [employer] Work Phone: Calcium [Mass/Vol] 9.4 mg/dL 8.5 - 9.9 mg/dL [facility] Work Phone: Chloride [Moles/Vol] 104 mmol/L [facility] [employer] Work Phone: CO2 [Moles/Vol] 22 mmol/L [facility] [email or web address] [facility] Work Phone: Creatinine [Mass/Vol] 1.5 mg/dL High 0.70 - 1.20 mg/dL [facility] [employer] Work Phone: GFR >60.0 >60 [employer] Work Phone: Comment on above: >60 mL/min/1.73m2 EG FR, calc. for ages 18 and older using the MDRD formula (not corrected for weight), is valid for stable renal function. GFR Non- 49.6 Low >60 [employer] Work Phone: Comment on above: >60 mL/min/1.73m2 EG FR, calc. for ages 18 and older using the MDRD formula (not corrected for weight), is valid for stable renal function. Globulin (S) [Mass/Vol] 3.2 g/dL 2.3 - 3.5 g/dL [employer] Work Phone: Glucose [Mass/Vol] 211 mg/dL High 70 - 99 mg/dL [employer] Work Phone: Interpretation and review of laboratory results Abnormal [facility] [employer] Phone: Potassium [Moles/Vol] 5.2 mmol/L High [facility] [employer] Work Phone: Protein [Mass/Vol] 6.9 g/dL 6.3 - 8.0 g/dL [facility] [employer] Phone: Sodium [Moles/Vol] 145 mmol/L High [facility] [employer] Work Phone: Urea nitrogen [Mass/Vol] 54 mg/dL High 6 - 20 mg/dL [facility] [employer] Phone: POCT Glucoseon 12-29-2020 Glucose [Mass/Vol] 168 mg/dL Critically high 60-115 M [facility] Comment on above: Performed By: #### P GLU ####[facility] [facility] [place] [phone] POC Performed on ACCU-CHEK [facility] Comment on above: Performed By: #### P GLU ####[facility]ain [place] [phone] Glucose [Mass/Vol] 168 mg/dL High 60 - 115 mg/dl [facility] [employer] Phone: Interpretation and review of laboratory results Abnormal [facility] [employer] Phone: Performed on ACCU-CHEK [facility] [employer] Phone: Glucose [Mass/Vol] 242 mg/dL Critically high 60-115 M [facility] Comment on above: Performed By: #### P GLU #### [facility] [address] [place] [address] POC Performed on ACCU-CHEK [facility] Comment on above: Performed By: #### P GLU #### [facility] [address] [place] [address] Glucose [Mass/Vol] 242 mg/dL High 60 - 115 mg/dl [employer] Phone: Interpretation and review of laboratory results Abnormal [facility] Phone: Performed on ACCU-CHEK [facility] [employer] Phone: APTTon 12-28-2020 aPTT Coag (Bld) [Time] 28.8 [facility] [employer] Phone: Comment on above: Effective 08/17/2020: Heparin Therapeutic Range: 64.0 98.0 seconds. Basic Metabolic Panelon 12-12 Calcium [Mass/Vol] 9.3 mg/dL Normal 8.5-9.9 [facility] Comment on above: Performed By: #### B MP #### [facility] [address] [place] [address] Chloride [Moles/Vol] 99 mmol/L Normal 95-107 [facility] Comment on above: Performed By: #### B MP #### [facility] [address] [place] [address] CO2 [Moles/Vol] 29 mmol/L Normal 20-31 [facility] Comment on above: Performed By: #### B MP #### [facility] [address] [place] [address] Creatinine [Mass/Vol] 1.59 mg/dL Critically high 0.70-1.20 [facility] Comment on above: Performed By: #### B MP #### [facility] [address] [place] [address] GFR/1.73 sq M predicted among blacks MDRD (S/P/Bld) [Vol rate/Area] 56.2 mL/min/{1.73_m2} Low >60 [facility] Comment on above: Result Comment: >60 mL/min/1.73m2 EGFR, calc. for ages 18 and older using the MDRD formula (not corrected for weight), is valid for stable renal function. Performed By: #### B MP #### [facility] [address] [place] [address] GFR/1.73 sq M.predicted MDRD (S/P/Bld) [Vol rate/Area] 46.4 mL/min/{1.73_m2} Low >60 [facility] Comment on above: Result Comment: >60 mL/min/1.73m2 EGFR, calc. for ages 18 and older using the MDRD formula (not corrected for weight), is valid for stable renal function. Performed By: #### B MP #### [facility] [address] [place] [address] Glucose [Mass/Vol] 73 mg/dL Normal 70-99 [facility] Comment on above: Performed By: #### B MP #### [facility] [address] [place] [address] Potassium [Moles/Vol] 4.8 mmol/L Normal 3.4-4.9 [facility] Comment on above: Performed By: #### B MP #### [facility] [address] [place] [address] Sodium [Moles/Vol] 137 mmol/L Normal 135-144 [facility] Comment on above: Performed By: #### B MP #### [facility] [address] [place] [address] Urea nitrogen [Mass/Vol] 58 mg/dL Critically high 6-20 [facility] Comment on above: Performed By: #### B MP #### [facility] [address] [place] [address] Anion gap [Moles/Vol] 9 mmol/L Normal 9-15 [facility] Comment on above: Performed By: #### B MP #### [facility] [address] [place] [address] Anion gap [Moles/Vol] 9 mmol/L [facility] [employer] Phone: Calcium [Mass/Vol] 9.3 mg/dL 8.5 - 9.9 mg/dL [facility] [employer] Phone: Chloride [Moles/Vol] 99 mmol/L [employer] Work Phone: CO2 [Moles/Vol] 29 mmol/L [facility] [email or web address] [facility] Work Phone: Creatinine [Mass/Vol] 1.59 mg/dL High 0.70 - 1.20 mg/dL [facility] [employer] Phone: GFR 56.2 Low >60 [facility] [employer] Phone: Comment on above: >60 mL/min/1.73m2 EG FR, calc. for ages 18 and older using the MDRD formula (not corrected for weight), is valid for stable renal function. GFR Non- 46.4 Low >60 [facility] Phone: Comment on above: >60 mL/min/1.73m2 EG FR, calc. for ages 18 and older using the MDRD formula (not corrected for weight), is valid for stable renal function. Glucose [Mass/Vol] 73 mg/dL 70 - 99 mg/dL [facility] Phone: Interpretation and review of laboratory results Abnormal [facility] [employer] Phone: Potassium [Moles/Vol] 4.8 mmol/L [facility] [employer] Work Phone: Sodium [Moles/Vol] 137 mmol/L [facility] [employer] Phone: Urea nitrogen [Mass/Vol] 58 mg/dL High 6 - 20 mg/dL [facility] [employer] Phone: CBC Auto Differentialon 12-12 Basophils (Bld) [#/Vol] 0.0 10*3/uL 0.0 - 0.2 K/uL [facility] Phone: Basophils/100 WBC (Bld) 0.3 % [facility] Phone: Eosinophils (Bld) [#/Vol] 0.6 10*3/uL 0.0 - 0.7 K/uL [facility] Phone: Eosinophils/100 WBC (Bld) 5.5 % [employer] Phone: Erythrocyte distribution width (RBC) [Ratio] 15.1 % High 11.5 - 14.5 % [employer] Phone: Hematocrit (Bld) [Volume fraction] 34.7 % Low 42.0 - 52.0 % [employer] Phone: Hemoglobin (Bld) [Mass/Vol] 11.5 g/dL Low 14.0 - 18.0 g/dL [employer] Phone: Interpretation and review of laboratory results Abnormal [employer] Phone: Lymphocytes (Bld) [#/Vol] 1.4 10*3/uL 1.0 - 4.8 K/uL [employer] Phone: Lymphocytes/100 WBC (Bld) 13.4 % [employer] Phone: MCH (RBC) [Entitic mass] 28.8 pg 27.0 - 31.3 pg [employer] Phone: MCHC (RBC) [Mass/Vol] 33.0 % 33.0 - 37.0 % [employer] Phone: MCV (RBC) [Entitic vol] 87.0 fL 80.0 - 100.0 fL [employer] Phone: Monocytes (Bld) [#/Vol] 0.8 10*3/uL 0.2 - 0.8 K/uL [employer] Phone: Monocytes/100 WBC (Bld) 7.5 % [facility] Phone: Neutrophils Absolute 7.5 K/uL High 1.4 - 6 .5 K/uL [employer] Phone: Neutrophils/100 WBC (Bld) 73.3 % [employer] Phone: Platelets (Bld) [#/Vol] 306 10*3/uL 130 - 400 K/uL [facility] [employer] Work Phone: RBC (Bld) [#/Vol] 3.99 10*6/uL Low [facility] Work Phone: WBC (Bld) [#/Vol] 10.2 10*3/uL 4.8 - 10.8 K/uL [facility] Work Phone: CBC With Platelet and Differ entialon 12-28-2020 Basophils (Bld) [#/Vol] 0.0 10*3/uL Normal 0.0-0.2 [facility] Comment on above: Performed By: #### C BCWD #### [facility] [address] [place] [address] Basophils/100 WBC (Bld) 0.3 % Normal [facility] Comment on above: Performed By: #### C BCWD #### [facility] [address] [place] [address] Eosinophils (Bld) [#/Vol] 0.6 10*3/uL Normal 0.0-0.7 [facility] Comment on above: Performed By: #### C BCWD #### [facility] [address] [place] [address] Eosinophils/100 WBC (Bld) 5.5 % Normal [facility] Comment on above: Performed By: #### C BCWD #### [facility] [address] [place] [address] Erythrocyte distribution width (RBC) [Ratio] 15.1 % Critically high 11.5-14.5 [facility] Comment on above: Performed By: #### C BCWD #### [facility] [address] [place] [address] Hematocrit (Bld) [Volume fraction] 34.7 % Low 42.0-52.0 [facility] Comment on above: Performed By: #### C BCWD #### [facility] [address] [place] [address] Hemoglobin (Bld) [Mass/Vol] 11.5 g/dL Low 14.0-18.0 [facility] Comment on above: Performed By: #### C BCWD #### [facility] [address] [place] [address] Lymphocytes (Bld) [#/Vol] 1.4 10*3/uL Normal 1.0-4.8 [facility] Comment on above: Performed By: #### C BCWD #### [facility] [address] [place] [address] Lymphocytes/100 WBC (Bld) 13.4 % Normal [facility] Comment on above: Performed By: #### C BCWD #### [facility] [address] [place] [address] MCH (RBC) [Entitic mass] 28.8 pg Normal 27.0-31.3 [facility] Comment on above: Performed By: #### C BCWD #### [facility] [address] [place] [address] MCHC (RBC) [Mass/Vol] 33.0 % Normal 33.0-37.0 [facility] Comment on above: Performed By: #### C BCWD #### [facility] [address] [place] [address] MCV (RBC) [Entitic vol] 87.0 fL Normal 80.0-100.0 [facility] Comment on above: Performed By: #### C BCWD #### [facility] [address] [place] [address] Monocytes (Bld) [#/Vol] 0.8 10*3/uL Normal 0.2-0.8 [facility] Comment on above: Performed By: #### C BCWD #### [facility] [address] [place] [address] Monocytes/100 WBC (Bld) 7.5 % Normal [facility] Comment on above: Performed By: #### C BCWD #### [facility] [address] [place] [address] Neutrophils (Bld) [#/Vol] 7.5 10*3/uL Critically high 1.4-6.5 [facility] Comment on above: Performed By: #### C BCWD #### [facility] [address] [place] [address] Neutrophils/100 WBC (Bld) 73.3 % Normal [facility] Comment on above: Performed By: #### C BCWD #### [facility] [address] [place] [address] Platelets (Bld) [#/Vol] 306 10*3/uL Normal 130-400 [facility] Comment on above: Performed By: #### C BCWD #### [facility] [address] [place] [address] RBC (Bld) [#/Vol] 3.99 10*6/uL Low 4.70-6.10 [facility] Comment on above: Performed By: #### C BCWD #### [facility] [address] [place] [address] WBC (Bld) [#/Vol] 10.2 10*3/uL Normal 4.8-10.8 [facility] Comment on above: Performed By: #### C BCWD #### [facility] [address] [place] [address] COVID-19on 12-28-2020 COVID-19, NAAT Not Detected Normal Not Detect [facility] Comment on above: Result Comment: Rapi d [...] authorized laboratories. Fact sheet for Healthcare Providers: https://www.fda.gov/media/530982/download Fact sheet for Patients: https://www.fda.gov/media/843394/download METHODOLOGY: Isothermal Nucleic Acid Amplification Performed By: #### C OVRG #### [facility] [address] [place] [address] COVID-19, Rapidon 12-28-2020 SARS-CoV-2, NAAT Not Detected Not Detected [facility] Phone: Comment on above: Rapid NAAT: Negative [...] authorized laboratories. Fact sheet for Healthcare Providers: https://www.fda.gov/media/400687/download Fact sheet for Patients: https://www.fda.gov/media/113734/download METHODOLOGY: Isothermal Nucleic Acid Amplification POCT Glucoseon 12-28-2020 Glucose [Mass/Vol] 86 mg/dL Normal 60-115 [facility] Comment on above: Performed By: #### P GLU #### [facility] [address] [place] [address] POC Performed on ACCU-CHEK Normal [facility] Comment on above: Performed By: #### P GLU #### [facility] [address] [place] [address] Glucose [Mass/Vol] 86 mg/dL 60 - 115 mg/dl [facility] [employer] Phone: Performed on ACCU-CHEK [facility] Phone: Partial Thromboplastin Timeo n 12-28-2020 aPTT Coag (Bld) [Time] 28.8 s Normal 24.4-36.8 [facility] Comment on above: Result Comment: Effe ctive 08/17/2020: Heparin Therapeutic Range: 64.0 ? 98.0 seconds. Performed By: #### P TT #### [facility] [address] [place] [address] Prothrombin Timeon 1 INR Coag (PPP) [Relative time] 1.0 {INR} Normal [facility] Comment on above: Performed By: #### P T #### [facility] [address] [place] [address] PT Coag (PPP) [Time] 13.7 s Normal 12.3-14.9 [facility] Comment on above: Performed By: #### P T #### [facility] [address] [place] [address] Protime-INRon 12-28-2020 INR Coag (PPP) [Relative time] 1.0 {INR} [facility] [employer] Phone: PT Coag (PPP) [Time] 13.7 s [facility] [employer] Phone: TYPE AND SCREENon 12-28-2020 ABO/Rh Positive [facility] [employer] Phone: Type and Screen Capture 3 sc rn cellon 12-28-2020 Type and Screen Capture 3 scrn cell PATIENT: MILY Forde LOC: [facility] BILL# : [id number] : 1970 SEX: M ORDERED BY: URIAH BONILLA ORDERED : 12/28/2020 12:26 COLLECTED: 12/28/2020 12:30 ORDER : [id number] RECEIVED : 12/28/2020 13:07 ------ TEST NAME RESULT UNITS RANGES ABN FL ST ABORH Capture O POS F Antibody 3 Cell Scrn Captu NEG F ----- Normal [facility] Comment on above: Performed By: #### T S3C #### [facility] [address] [place] [address] CTA ABDOMINAL AORTA W BILAT RUNOFF W WO CONTRASTon 12-21-2020 Three-vessel distal runoff, right lower extremity. Two-vessel distal runoff, left lower extremity, the anterior tibial and posterior tibial arteries. Bilateral lower extremity edema. Constipation All CT scans at this facility use dose modulation, iterative reconstruction, and/or weight based dosing when appropriate to reduce radiation dose to as low as reasonably achievable. [facility] [employer] Work Phone: CTA abdomen, pelvis, bilateral lower [...] to the level of the distal tibia. [employer] Work Phone: Chip, [facility] Incoming Radiant Results From [employer] - 12/21/2020 9:36 AM EST CTA abdomen, [...] dose to as low as reasonably achievable. [employer] Phone: POCT Venouson 12-21-2020 Creatinine [Mass/Vol] 0.7 mg/dL Low 0.9 - 1.3 mg/dL [employer] Phone: GFR >60 >60 [employer] Phone: Comment on above: >60 mL/min/1.73m2 EG FR, calc. for ages 18 and older using the MDRD formula (not corrected for weight), is valid for stable renal function. GFR Non- >60 >60 [employer] Phone: Comment on above: >60 mL/min/1.73m2 EG FR, calc. for ages 18 and older using the MDRD formula (not corrected for weight), is valid for stable renal function. Interpretation and review of laboratory results Abnormal [employer] Phone: Performed on SEE BELOW [employer] Phone: Comment on above: Performed on POC Sample Type PONCE [employer] Phone: CTA ABDOMINAL AORTA W BILAT RUNOFF [...] Jaguar Cross MD 12/21/[address] [facility] POCT Venouson 12-20-2020 Creatinine [Mass/Vol] 0.7 mg/dL Low 0.9-1.3 [facility] Comment on above: Performed By: #### P PONCE #### [facility] [address] [facility] [address] GFR/1.73 sq M predicted among blacks MDRD (S/P/Bld) [Vol rate/Area] mL/min/{1.73_m2} Normal >60 [facility] Comment on above: Result Comment: >60 mL/min/1.73m2 EGFR, calc. for ages 18 and older using the MDRD formula (not corrected for weight), is valid for stable renal function. Performed By: #### P PONCE #### [facility] [address] [facility] [address] GFR/1.73 sq M.predicted MDRD (S/P/Bld) [Vol rate/Area] mL/min/{1.73_m2} Normal >60 [facility] Comment on above: Result Comment: >60 mL/min/1.73m2 EGFR, calc. for ages 18 and older using the MDRD formula (not corrected for weight), is valid for stable renal function. Performed By: #### P PONCE #### [facility] [address] [place] [address] POC Performed on SEE BELOW Normal [facility] Comment on above: Result Comment: Perf ormed on POC Performed By: #### P PONCE #### [facility] [address] [place] [address] POC Sample Type PONCE Normal [facility] Comment on above: Performed By: #### P PONCE #### [facility] [address] [place] [address] Coding Summary.on 01-14-2019 Coding Summary. CODING DATE: 019 FINAL [facility] STATUS: Home (Routine DC) PAYOR: [...] unspecified, not intractable, without status epilepticus Z79.4 custodial (current) use of insulin Z79.82 custodial (current) use of aspirin Z79.51 custodial (current) use of inhaled steroids Z79.899 Other 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) drug therapy Z88.8 Allergy status to other drugs, medicaments and biological substances status PYMT PROC APC STAT DESCRIPTION DOCTOR NAME DATE 47742 0124 T Adjacent tissue transfer House Donita MORALES 01/08/2019 or rearrangement, scalp, arms and/or legs; defect 10 sq cm or less [address] Anesthesia for Luis Sellers Jr., DO 01/08/2019 [...] Date Saved: 01/14/2019 12:[address] [facility] Inpatient Patient Summaryon 01-08-2019 Inpatient Patient Summary [facility] Clinical Discharge Instructions PERSON INFORMATION Name: [facility] [employer] Admitting Physician: Fatoumata Tirado MD Attending Physician: Fatoumata Tirado MD PCP: Donita Tenorio DO Discharge Diagnosis: Scalp lesion Comment: PATIENT EDUCATION INFORMATION Instructions: Medication Leaflets: Follow up: With: Address: When: Fatoumata Tirado [address] [place] [address], [address] [place], [place] [id number] [facility] ([employer] In 8 days 01/16/2019 MEDICATION LIST Comment: [facility] Main OR Intraoperative Recor don 01-08-2019 Main OR Intraoperative Record IntraOp Document Type FT Summary Primary Physician: Fatoumata Tirado MD Finalized Date/Time: 01/08/19 14:23:55 Pt. Name: CHANDLER MINOR Yifan/Sex: 1970 Male Med Rec #: [id number] Physician: Fatoumata Tirado MD Financial #: [id number] Pt. Type: A Room/Bed: 0/ Admit/Disch: 01/08/19 07:12:00 - 01/08/19 12:35:00 Institution: [...] Role Performed Anesthesiologist of Surgeon - Primary Food Cart Attendant - Primary Record Time In 01/08/19 09:34:00 01/08/19 09:44:00 01/08/19 09:34:00 Time Out 01/08/19 10:32:00 01/08/19 10:32:00 01/08/19 10:32:00 Procedure CYST LESION CYST LESION CYST LESION REMOVAL(Left) REMOVAL(Left) REMOVAL(Left) Comments Last Modified By: Demetrius RN, Danielle Romo RN, Danielle Pacheco RN 01/08/19 10:31:49 01/08/19 10:31:49 01/08/19 10:31:49 Entry 4 Entry 5 Case Attendee Demetrius MARTÍNEZ, Danielle Miguel CST, Gary Tao Role Performed Food Cart Attendant - Primary Scrub - Primary Time In 01/08/19 09:34:00 01/08/19 09:34:00 Time Out 01/08/19 10:32:00 01/08/19 10:32:00 Procedure CYST LESION CYST LESION REMOVAL(Left) REMOVAL(Left) Comments Last Modified By: Demetrius RN, Danielle Pacheco RN 01/08/19 10:31:49 01/08/19 [...] MD, Kathy Quigley RN, Demetrius Dubose RN, DanielleMyriam Moffett CST, Foster M Time Out Complete 01/08/19 09:49:00 Outcomes Met? [...] objects General Comments: right upper arm diabetic sensorCirilo merchant rn Patient Positioning FT Pre-Care Text: [...] Romo RN, Barker Krupp RN, Andrzej Pierre, TRUCK DISPATCHER, Gary Miguel CST, Gary Tao Outcomes Met? [...] to transfer/transport General Comments: report given to learning and development managerrn. Kassidy merchant rn Dressing/Packing FT Pre-Care Text: [...] AIR Quantity 1 Aid PLUS LOWER BODY [[id number]][F] Fluid/[place] Unit Mistral warming system Setting high/43 Body Site Lower anterior torso Last Modified By: Danielle Romo RN 01/08/19 07:32:52 Case Comments Finalized By: Nunu Asif CST Document Signatures Signed By: Danielle Romo RN 01/08/19 10:35 Nunu Asif CST 01/08/19 14:23 Normal [facility] Main OR PACU I Recordon 12-13 Main OR PACU I Record PACU Phase I Docum ent Type FT Summary Primary Physician: Fatoumata Tirado MD Finalized Date/Time: 01/08/19 11:13:30 Pt. Name: CHANDLER MINOR/Sex: 1970 Male Med Rec #: [id number] Physician: Fatoumata Tirado MD Financial #: [id number] Pt. Type: A Room/Bed: [facility] Admit/Disch: 01/08/19 07:12:51 - Institution: Case Times [...] 11:03 Sugey Oden RN 01/08/19 11:13 Normal [facility] Main OR PACU II Recordon Main OR PACU II Record PACU Phase II Doc ument Type FT Summary Primary Physician: Fatoumata Tirado MD Finalized Date/Time: 01/08/19 13:45:23 Pt. Name: MILY CHANDLER Saha/Sex: 1970 Male Med Rec #: [id number] Physician: Fatoumata Tirado MD Financial #: [id number] Pt. Type: A Room/Bed: [place] [address] Admit/Disch: 01/08/19 07:12:51 - Institution: Case Times [...] 13:43 Ilana Peguero RN 01/08/19 13:45 Normal [facility] Main OR Preoperative Recordo n 01-08-2019 Main OR Preoperative Record PreOp Document Type FT Summary Primary Physician: Fatoumata Tirado MD Finalized Date/Time: 01/08/19 09:51:30 Pt. Name: CHANDLER MINOR/Sex: 1970 Male Med Rec #: [id number] Physician: Fatoumata Tirado MD Financial #: [id number] Pt. Type: A Room/Bed: [place] [address] Admit/Disch: 01/08/19 07:12:51 - Institution: Case Times [...] By: Danielle Romo RN 01/08/19 09:51 Normal [facility] Operative Reporton 9 Operative Report Date of Surgery: 01/08/2019 SURGEON: Fatoumata Tirado Jr. MPalmira PRIMARY CARE PHYSICIAN: Donita Tenorio D.O. PREOPERATIVE DIAGNOSIS: Left scalp lesion [...] Fatoumata Tirado Jr., M.D. aek Dictated: 01/08/2019 #[id number] Typed: 01/08/2019 #[id number] cc: Rosi Barragan Jr., M.D. [facility] Comment on above: Result Comment: Elec tronically Signed By: Candida FLAHERTY, Fatoumata Schwartz\.br\Date and Time Signed: 01/08/19 14:38 EDT Operative Report Patient: MELVI MINOR Age: 48 years Sex: Male : 1970 Associated Diagnoses: None Author: Fatoumata Tirado MD Postoperative Information Procedure: r/o scalp lesion and advancement flap closure (5cm length) Preoperative Diagnosis: Scalp lesion ([id number]-SK L98.9, Working, Medical). Postoperative Diagnosis: Scalp lesion ([id number] L98.9, Discharge, Medical). Performed by: Fatoumata Tirado MD. Findings: scalp cyst with fistulous tract. Specimens Removed: scalp lesion. Estimated Blood Loss: 10 ml. Medications Complications: None. Normal [facility] Comment on above: Result Comment: Elec tronically Signed By: Fatoumata Tirado MD\.br\Date and Time Signed: 01/08/19 10:45 EDT Patient Education - Texton 0 01-08-2019 Patient Education - Text Normal [facility] Progress Note-Physicianon Protein mass conc Patient: MELVI [...] list: All Problems Asthma / SNOMED CT 048264057 / Confirmed Carpal tunnel syndrome / SNOMED CT 30777926 / Confirmed bilateral Depression / SNOMED CT 07387370 / Confirmed Diabetes / SNOMED CT 282719870 / Confirmed Acid reflux / SNOMED CT 837379870 / Confirmed Hypertension / SNOMED CT 6244337384 / Confirmed Scalp lesion / SNOMED CT 0505393410 / Confirmed x2 Migraine headache / SNOMED CT 71725198 / Confirmed Parkinson's disease / SNOMED CT 56555406 / Confirmed Sarcoidosis / SNOMED CT 79447699 / Confirmed Seizure / SNOMED CT 742736963 / Confirmed last July was last seizure- in PACU Sleep apnea / SNOMED CT 793274629 / Confirmed uses CPAP Smoker / SNOMED CT 952486131 / Confirmed Added secondary to documentation in [...] results Radiology results ECG interpretation Condition Plan [place] [employer] (ASA) physical status classification: Class III. Anesthetic Preoperative Plan Anesthesia: General. . Anesthetic plan, risks, benefits, and alternatives discussed with the patient and/or family. Risks discussed: nausea, vomiting, headache, sore throat, dental injury, serious complications. Patient verbalized understanding. Communication: face to face with (patient 5 minutes, Pt educated on the importance of smoking cessation.). [facility] Comment on above: Result Comment: Elec tronically Signed By: Nehemiah Orosco Jr, DO\.br\Date and Time Signed: 01/08/19 16:48 EDT Coding Summary.on 12-31-2018 Coding Summary. CODING DATE: 019 FINAL [facility] STATUS: Home (Routine DC) PAYOR: [...] CphT Date Saved: 12/31/2018 01:25 pm Normal [facility] Auto Diffon 12-30-2018 Basophils #/vol (Bld) 0.3 % Normal 0.0-2.0 [facility] Comment on above: Order Comment: Order Added by Discern Expert. Performed By: #### 2 [id number] #### [facility] [address] [place] [address] Basophils/Leukocytes Auto Pure number fraction (Bld) 0.0 E9/L Normal 0.0-0.2 [facility] Comment on above: Order Comment: Order Added by Asad Expert. Performed By: #### 2 [id number], [id number] #### [facility] [address] [place] [address] Eosinophils/100 WBC (Bld) 3.9 % Normal 0.0-8.0 [facility] Comment on above: Order Comment: Order Added by Discern Expert. Performed By: #### 2 [id number] #### [facility] [address] [place] [address] Eosinophils/Leukocytes Auto Pure number fraction (Bld) 0.3 E9/L Normal 0.0-0.5 [facility] Comment on above: Order Comment: Order Added by Discern Expert. Performed By: #### 2 [id number], [id number] #### [facility] [address] [place] [address] Lymphocytes/100 WBC (Bld) 22.4 % Normal 14.0-50.0 [facility] Comment on above: Order Comment: Order Added by Discern Expert. Performed By: #### 2 [id number] #### [facility] [address] [place] [address] Lymphocytes/Leukocytes Auto Pure number fraction (Bld) 1.9 E9/L Normal 1.0-4.0 [facility] Comment on above: Order Comment: Order Added by Discern Expert. Performed By: #### 2 [id number], [id number], [id number] #### [facility] [address] [place] [address] Monocytes/100 WBC (Bld) 7.7 % Normal 4.0-14.0 F [facility] Comment on above: Order Comment: Order Added by Discern Expert. Performed By: #### 2 [id number], [id number], [id number] #### [facility] [address] [place] [address] Monocytes/Leukocytes Auto Pure number fraction (Bld) 0.7 E9/L Normal 0.2-1.0 [facility] Comment on above: Order Comment: Order Added by Discern Expert. Performed By: #### 2 [id number], [id number], [id number] #### [facility] [address] [place] [id number] Neutrophils/100 WBC (Bld) 65.7 % Normal 36.0-75.0 [facility] Comment on above: Order Comment: Order Added by Discern Expert. Performed By: #### 2 [id number], [id number], [id number] #### [facility] [address] [place] [address] Neutrophils/Leukocytes Auto Pure number fraction (Bld) 5.6 E9/L Normal 2.0-7.5 [facility] Comment on above: Order Comment: Order Added by Discern Expert. Performed By: #### 2 [id number], [id number], [id number] #### [facility] [address] [place] [address] BUNon 12-30-2018 Urea nitrogen mass conc 18 mg/dL Normal 5-21 F [facility] Comment on above: Performed By: #### 2 646022, [id number], [id number], [id number], [id number] #### [facility] [address] [place] [address] CBC w/ Auto Diffon 9 Erythrocyte distribution width Ratio (RBC) 13.1 % Normal 10.9-14.2 [facility] Comment on above: Performed By: #### 2 071413, [id number], [id number] #### [facility] [address] [place] [address] Hematocrit Volume Fraction (Bld) 39.6 % Normal 37.7-49.0 [facility] Comment on above: Performed By: #### 2 809693, [id number], [id number] #### [facility] [address] [place] [address] Hemoglobin mass conc (Bld) 13.7 g/dL Normal 13.5-17.5 [facility] Comment on above: Performed By: #### 2 049055, [id number], [id number] #### [facility] [address] [place] [address] MCH Entitic mass (RBC) 32.5 pg Normal 27.0-34.0 [facility] Comment on above: Performed By: #### 2 742805, [id number], [id number] #### [facility] [address] [place] [address] MCHC mass conc (RBC) 34.5 g/dL Normal 33.3-35.7 [facility] Comment on above: Performed By: #### 2 973964, [id number], [id number] #### [facility] [address] [place] [address] MCV Entitic volume (RBC) 94.1 fL Normal 80.0-100.0 [facility] Comment on above: Performed By: #### 2 914452, 6369041, [id number] #### [facility] [address] [place] [address] Platelet mean volume Entitic volume (Bld) 9.1 fL Normal 6.4-10.8 [facility] Comment on above: Performed By: #### 2 326320, [id number], [id number] #### [facility] [address] [place] [address] Platelets #/vol (Bld) 229.0 E9/L Normal 150.0- 500. 0 [facility] Comment on above: Performed By: #### 2 807246, [id number], [id number] #### [facility] [address] [place] [address] RBC #/vol (Bld) 4.2 E12/L Low 4.3-5.9 [facility] Comment on above: Performed By: #### 2 539805, [id number], [id number] #### [facility] [address] [place] [address] WBC corrected for nucl RBC Auto #/vol (Bld) 8.5 E9/L Normal 4.0-11.0 [facility] Comment on above: Performed By: #### 2 587287, [id number], [id number] #### [facility] [address] [place] [address] Creatinineon 12-30-2018 Creatinine mass conc 0.8 mg/dL Normal 0.5-1.3 [facility] Comment on above: Performed By: #### 2 555560, 6325409, [id number], 7285811, [id number] #### [facility] [address] [place] [address] Glucoseon 12-30-2018 Glucose mass conc 214 mg/dL High 55-199 [facility] Comment on above: Performed By: #### 2 134489, 5242810, [id number], [id number], [id number] #### [facility] [address] [place] [address] Lyteson 12-30-2018 Anion gap molar conc 12 mmol/L Normal 6-16 [facility] Comment on above: Performed By: #### 2 686841, 5601501, [id number], 3291896, [id number] #### [facility] [address] [place] [address] Chloride molar conc 103 mmol/L Normal 101-111 [facility] Comment on above: Performed By: #### 2 730181, 0831102, [id number], 6522031, [id number] #### [facility] [address] [place] [address] CO2 molar conc 24 mmol/L Normal 21-31 [facility] Comment on above: Performed By: #### 2 177386, 6918907, 39327875, 5437582, 3130971 #### [facility] [address] [place] [address] Potassium molar conc 4.0 mmol/L Normal 3.5-5.3 [facility] Comment on above: Performed By: #### 2 510331, 4616403, [id number], 3208663, [id number] #### [facility] [address] [place] [address] Sodium molar conc 135 mmol/L Normal 135-145 [facility] Comment on above: Performed By: #### 2 288657, 1623976, 12012553, 1808679, 1874152 #### [facility] [address] [place] [address] PT & PTTon 12-30-2018 aPTT Coag time (PPP) 30.2 second(s) Normal 25.1-36.5 [facility] Comment on above: Result Comment: Hepa rin therapeutic range (represented by Anti-Factor Xa activity of 0.2 - 0.4 U/mL) corresponds to PTT of 56.6 - 109.0 sec. Performed By: #### 2 927825, 1786325, [id number] #### [facility] [address] [place] [address] INR Coag RelTime (PPP) 1.0 {INR} [facility] Comment on above: Result Comment: INR results are specifically intended to assess patients stabilized on long-term Anticoagulation therapy suggested INR?s ?Less Intensive Anticoagulation? 2.0 ? 3.0 Conventional Range 3.0 ? 4.5 Performed By: #### 2 690605, [id number], [id number] #### [facility] [address] [place] [address] Prothrombin time (PT) Coag time (PPP) 10.6 second(s) Normal 10.2-12.9 [facility] Comment on above: Performed By: #### 2 132913, [id number], [id number] #### [facility] [address] [place] [address] XR Chest 2 Viewson 9 XR Chest [...] M.D. Transcribed by: ELDON Technologist: BARBARA Normal [facility] eGFRon 12-30-2018 GFR/1.73 sq M predicted among blacks MDRD vol rate/area (S/P/Bld) mL/min/{1.73_m2} Normal >=59 [facility] Comment on above: Order Comment: Order added by Discern Expert. Result Comment: eGFR is race adjusted. AA=. Performed By: #### 2 468541, 4822535, [id number], 8929107, [id number] #### [facility] [address] [place] [address] GFR/1.73 sq M predicted among non-blacks MDRD vol rate/area (S/P/Bld) mL/min/{1.73_m2} Normal >=59 [facility] Comment on above: Order Comment: Order added by Discern Expert. Result Comment: [employer] kidney disease could be indicated at eGFR's of less than 60 mL/min/1.73m2. Kidney failure is indicated at less than 15 mL/min/1.73m2. Performed By: #### 2 150705, 1940233, [id number], 0528036, [id number] #### [facility] [address] [place] [address] No Panel Information [facility] Vital Signs Date Time Vital Sign Value Performing Clinician Facility 01-30-2024 15:04-0400 Heart rate 90 /min Cece Szymanski APRN-MARKETING PROFESSIONAL Work Phone: [employer] 01-29-2024 15:20-0400 Diastolic blood pressure 90 mm[Hg] Cece Szymanski 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 Work Phone: [employer] Comment on above: manual at the end of visit 01-29-2024 15:20-0400 Systolic blood pressure 182 mm[Hg] Cece Szymanski 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 Work Phone: [employer] Comment on above: manual at the end of visit 01-29-2024 14:20-0400 Body height 167.6 cm Cece Szymanski APRN-MARKETING PROFESSIONAL Work Phone: [employer] 01-29-2024 14:20-0400 Body mass index (BMI) [Ratio] 37.12 kg/m2 Cece Szymanski 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 Work Phone: [employer] 01-29-2024 14:20-0400 Body temperature 97.3 [degF] Cece Szymanski APRN-MARKETING PROFESSIONAL Work Phone: [employer] 01-29-2024 14:20-0400 Body weight 104.33 kg Cece Szymanski 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 Work Phone: [employer] 01-29-2024 14:20-0400 Heart rate 90 /min Cece Szymanski 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 Work Phone: [employer] 01-29-2024 14:20-0400 Respiratory rate 18 /min Cece Szymanski 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 Work Phone: [employer] 01-29-2024 14:20-0400 SaO2% (BldA) [Mass fraction] 99 % Cece Szymanski APRN-MARKETING PROFESSIONAL Work Phone: [employer] 01-14-2024 14:14-0400 Body height 167.64 cm DO Donita House Work Phone: [facility] 01-14-2024 14:14-0400 Body mass index (BMI) [Ratio] 37.9 kg/m2 DO Donita House Work Phone: [facility] 01-14-2024 14:14-0400 Body weight 106.59 kg DO Donita House Work Phone: [facility] 01-14-2024 14:14-0400 Diastolic blood pressure 99 mm[Hg] DO Donita House Work Phone: [facility] 01-14-2024 14:14-0400 Heart rate 67 /min DO Donita House Work Phone: [facility] 01-14-2024 14:14-0400 Respiratory rate 18 /min DO Donita House Work Phone: [facility] 01-14-2024 14:14-0400 SaO2% (BldA) [Mass fraction] 98 % DO Donita House Work Phone: [facility] 01-14-2024 14:14-0400 Systolic blood pressure 197 mm[Hg] DO Donita House Work Phone: [facility] 01-13-2024 18:00-0400 Diastolic blood pressure 84 mm[Hg] DO Donita House Work Phone: [facility] 01-13-2024 18:00-0400 Heart rate 68 /min DO Donita House Work Phone: [facility] 01-13-2024 18:00-0400 SaO2% (BldA) [Mass fraction] 98 % DO Donita House Work Phone: [facility] 01-13-2024 18:00-0400 Systolic blood pressure 171 mm[Hg] DO Donita House Work Phone: [facility] 01-13-2024 14:02-0400 Body height 167.64 cm DO Donita House Work Phone: [facility] 01-13-2024 14:02-0400 Body temperature 97.7 [degF] DO Donita Tenorio Work Phone: [facility] 01-13-2024 14:02-0400 Body weight 104.32 kg DO Donita Tenorio Work Phone: [facility] 01-13-2024 13:33-0400 Body height 170.18 cm [facility] 01-13-2024 13:33-0400 Body mass index (BMI) [Ratio] 35.9 kg/m2 [facility] 01-13-2024 13:33-0400 Body weight 103.87 kg [facility] 01-13-2024 13:33-0400 Diastolic blood pressure 55 mm[Hg] [facility] 01-13-2024 13:33-0400 Heart rate 70 /min [facility] 01-13-2024 13:33-0400 Respiratory rate 18 /min [facility] 01-13-2024 13:33-0400 SaO2% (BldA) [Mass fraction] 99 % [facility] 01-13-2024 13:33-0400 Systolic blood pressure 82 mm[Hg] [facility] 12-12-2023 12:50-0500 Body height 167.6 cm Yue Amador APRN-MARKETING PROFESSIONAL Work Phone: [facility] 12-12-2023 12:50-0500 Body mass index (BMI) [Ratio] 38.41 kg/m2 Yue Amador APRN-MARKETING PROFESSIONAL Work Phone: [facility] 12-12-2023 12:50-0500 Body weight 107.96 kg Yue Amador 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 Work Phone: [facility] 12-12-2023 12:50-0500 Diastolic blood pressure 92 mm[Hg] Yue Amador 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 Work Phone: [facility] 12-12-2023 12:50-0500 Heart rate 82 /min Yue Amador APRN-MARKETING PROFESSIONAL Work Phone: [facility] 12-12-2023 12:50-0500 Systolic blood pressure 182 mm[Hg] Yue Amador 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 Work Phone: [facility] 09-17-2023 13:00-0500 Body height 170.18 cm Agus Pedroza Other [facility] 09-17-2023 13:00-0500 Diastolic blood pressure 74 mm[Hg] Agus Pedroza Other [facility] 09-17-2023 13:00-0500 SaO2% (BldA) [Mass fraction] 98 % Agus Pedroza Other [facility] [employer] Other 09-17-2023 13:00-0500 Systolic blood pressure 113 mm[Hg] Agus Pedroza Other [facility] 08-03-2023 11:00-0400 Body temperature 98.6 [degF] DO Christopher Jack Work Phone: [facility] 08-03-2023 11:00-0400 Diastolic blood pressure 79 mm[Hg] DO Christopher Jack Work Phone: [facility] 08-03-2023 11:00-0400 Heart rate 79 /min DO Christopher Jack Work Phone: [facility] 08-03-2023 11:00-0400 Respiratory rate 14 /min DO Christopher Jack Work Phone: [facility] 08-03-2023 11:00-0400 SaO2% (BldA) [Mass fraction] 98 % DO Christopher Jack Work Phone: [facility] 08-03-2023 11:00-0400 Systolic blood pressure 168 mm[Hg] DO Christopher Roberts Work Phone: [facility] 08-03-2023 05:54-0400 Inhaled oxygen flow rate 2 L/min DO Christopher Roberts Work Phone: [facility] 08-02-2023 21:19-0400 Body height 173 cm DO Christopher Jack Work Phone: [facility] 08-02-2023 21:19-0400 Body mass index (BMI) [Ratio] 28.7 kg/m2 DO Christopher Jack Work Phone: [facility] 08-02-2023 21:19-0400 Body weight 86 kg DO Christopher Jack Work Phone: [facility] 08-02-2023 08:01-0400 Diastolic blood pressure 65 mm[Hg] DO Christopher Jack Work Phone: [facility] 08-02-2023 08:01-0400 Heart rate 69 /min DO Christopher Jack Work Phone: [facility] 08-02-2023 08:01-0400 Respiratory rate 15 /min DO Christopher Roberts Work Phone: [facility] 08-02-2023 08:01-0400 SaO2% (BldA) [Mass fraction] 97 % DO Christopher Jack Work Phone: [facility] 08-02-2023 08:01-0400 Systolic blood pressure 96 mm[Hg] DO Christopher Roberts Work Phone: [facility] 08-02-2023 07:44-0400 Body temperature 94.5 [degF] DO Christopher Jack Work Phone: [facility] 08-02-2023 04:42-0400 Inhaled oxygen flow rate 99 L/min DO Christopher Jack Work Phone: [facility] 08-02-2023 04:15-0400 Body height 172.72 cm DO Christopher Roberts Work Phone: [facility] 08-02-2023 04:15-0400 Body mass index (BMI) [Ratio] 28.8 kg/m2 DO [employer] Work Phone: [facility] 08-02-2023 04:15-0400 Body weight 86 kg DO Christopher Roberts Work Phone: [facility] 08-02-2023 04:15-0400 SaO2% (BldA) [Mass fraction] 95.1 % DO Christopher Jack Work Phone: [facility] 05-21-2023 13:30-0400 Body height 170.18 cm Agus Pedroza Other [employer] Other 05-21-2023 13:30-0400 Diastolic blood pressure 100 mm[Hg] Agus Pedroza Other [employer] Other 05-21-2023 13:30-0400 SaO2% (BldA) [Mass fraction] 98 % Agus Yovany Other [employer] Other 05-21-2023 13:30-0400 Systolic blood pressure 160 mm[Hg] Agus Pedroza Other [employer] Other 04-18-2023 16:35-0400 Body temperature 98.3 [degF] DO [employer] Work Phone: [facility] 04-18-2023 16:35-0400 Diastolic blood pressure 86 mm[Hg] DO Donita House Work Phone: [facility] 04-18-2023 16:35-0400 Heart rate 89 /min DO Donita House Work Phone: [facility] 04-18-2023 16:35-0400 Respiratory rate 16 /min DO Donita [employer] Work Phone: [facility] 04-18-2023 16:35-0400 SaO2% (BldA) [Mass fraction] 97 % DO Donita [employer] Work Phone: [facility] 04-18-2023 16:35-0400 Systolic blood pressure 131 mm[Hg] DO Donita House Work Phone: [facility] 04-18-2023 06:00-0400 Body weight 104.6 kg DO Donita House Work Phone: [facility] 04-18-2023 04:00-0400 Inhaled oxygen flow rate 2 L/min DO Donita House Work Phone: [facility] 04-16-2023 11:15-0400 Body height 167.64 cm DO Donita House Work Phone: [facility] 05-16-2022 14:30-0400 Body height 170.18 cm Tondra Mapus Other [employer] [facility] [employer] Other 05-16-2022 14:30-0400 Diastolic blood pressure 108 mm[Hg] Tondra Mapus Other [employer] Other 05-16-2022 14:30-0400 Respiratory rate 18 /min Tondra Mapus Other [employer] Other 05-16-2022 14:30-0400 SaO2% (BldA) [Mass fraction] 98 % Tondra Mapus Other [employer] Other 05-16-2022 14:30-0400 Systolic blood pressure 155 mm[Hg] Tondra Mapus Other [employer] Other 04-22-2022 00:30-0400 Diastolic blood pressure 64 mm[Hg] DO Donita House Work Phone: [facility] 04-22-2022 00:30-0400 Heart rate 82 /min DO Donita House Work Phone: [facility] 04-22-2022 00:30-0400 Respiratory rate 18 /min DO Donita House Work Phone: [facility] 04-22-2022 00:30-0400 SaO2% (BldA) [Mass fraction] 100 % DO Donita House Work Phone: [facility] 04-22-2022 00:30-0400 Systolic blood pressure 129 mm[Hg] DO Donita House Work Phone: [facility] 04-21-2022 21:09-0400 Body height 167.64 cm DO Donita House Work Phone: [facility] 04-21-2022 21:09-0400 Body mass index (BMI) [Ratio] 37.1 kg/m2 DO Donita House Work Phone: [facility] 04-21-2022 21:09-0400 Body temperature 97.8 [degF] DO Donita House Work Phone: [facility] 04-21-2022 21:09-0400 Body weight 104.32 kg DO Donita House Work Phone: [facility] 03-07-2022 11:50-0400 Diastolic blood pressure 80 mm[Hg] Donita P House Work Phone: [facility] DO Work Phone: 03-07-2022 11:50-0400 Heart rate 84 /min Donita P House Work Phone: [facility] DO Work Phone: 03-07-2022 11:50-0400 Systolic blood pressure 100 mm[Hg] Donita P House Work Phone: [facility] DO Work Phone: 02-14-2022 14:41-0400 Body height 167.64 cm Donita P House Work Phone: [facility] DO Work Phone: 02-14-2022 14:41-0400 Body mass index (BMI) [Ratio] 36.64 kg/m2 Donita P House Work Phone: [facility] DO Work Phone: 02-14-2022 14:41-0400 Body surface area Derived from formula 2.11 m2 Donita P House Work Phone: [facility] DO Work Phone: 02-14-2022 14:41-0400 Body weight 102.97 kg Donita P House Work Phone: [facility] DO Work Phone: 02-14-2022 14:41-0400 Diastolic blood pressure 90 mm[Hg] Donita P House Work Phone: [facility] DO Work Phone: 02-14-2022 14:41-0400 Heart rate 84 /min Donita P House Work Phone: [facility] DO Work Phone: 02-14-2022 14:41-0400 Systolic blood pressure 160 mm[Hg] Donita P House Work Phone: [facility] DO Work Phone: 02-14-2022 14:41-0400 8 1 Donita P House Work Phone: [facility] DO Work Phone: Comment on above: PHQ-9 TS 02-06-2022 12:00-0400 Body height 170.18 cm [employer] Other [employer] Other 02-06-2022 12:00-0400 Body mass index (BMI) [Ratio] 36.33 kg/m2 Tondra [employer] Other [employer] Other 02-06-2022 12:00-0400 Body weight 105.24 kg Tondra Mapus Other [employer] Other 01-22-2022 11:15-0400 Body height 170.18 cm Tondra Mapus Other [employer] Other 01-22-2022 11:15-0400 Body mass index (BMI) [Ratio] 36.65 kg/m2 Tondra Mapus Other [employer] Other 01-22-2022 11:15-0400 Body weight 106.14 kg Tondra Mapus Other [employer] Other 01-22-2022 11:15-0400 Diastolic blood pressure 84 mm[Hg] Tondra Mapus Other [employer] Other 01-22-2022 11:15-0400 Respiratory rate 20 /min Tondra Mapus Other [employer] Other 01-22-2022 11:15-0400 SaO2% (BldA) [Mass fraction] 99 % Tondra Mapus Other [employer] Other 01-22-2022 11:15-0400 Systolic blood pressure 136 mm[Hg] Tondra Mapus Other [employer] Other 01-19-2022 15:45-0400 Body height 170.18 cm Donita P House Work Phone: [facility] DO Work Phone: 01-19-2022 15:45-0400 Diastolic blood pressure 106 mm[Hg] Donita P House Work Phone: [facility] DO Work Phone: 01-19-2022 15:45-0400 Heart rate 76 /min Donita P House Work Phone: [facility] DO Work Phone: 01-19-2022 15:45-0400 Systolic blood pressure 184 mm[Hg] Donita P House Work Phone: [facility] DO Work Phone: 01-19-2022 15:45-0400 12 1 Donita P House Work Phone: [facility] DO Work Phone: Comment on above: PHQ-9 TS 01-12-2022 11:50-0400 Body temperature 97.5 [degF] DO Donita House Work Phone: [facility] 01-12-2022 11:50-0400 Diastolic blood pressure 91 mm[Hg] DO Donita House Work Phone: [facility] 01-12-2022 11:50-0400 Heart rate 82 /min DO Donita House Work Phone: [facility] 01-12-2022 11:50-0400 Respiratory rate 20 /min DO Donita House Work Phone: [facility] 01-12-2022 11:50-0400 SaO2% (BldA) [Mass fraction] 98 % DO Donita House Work Phone: [facility] 01-12-2022 11:50-0400 Systolic blood pressure 151 mm[Hg] DO Donita House Work Phone: [facility] 01-12-2022 05:51-0400 Body weight 104.8 kg DO Donita House Work Phone: [facility] 01-11-2022 15:11-0400 Body height 167.64 cm DO Donita Tenorio Work Phone: [facility] 01-11-2022 11:13-0400 Inhaled oxygen flow rate 2.5 L/min DO Donita Tenorio Work Phone: [facility] 01-10-2022 22:17-0400 Body mass index (BMI) [Ratio] 37.1 kg/m2 DO Donita Tenorio Work Phone: [facility] 01-10-2022 20:30-0400 Diastolic blood pressure 72 mm[Hg] DO Donita Tenorio Work Phone: [facility] 01-10-2022 20:30-0400 Heart rate 90 /min DO Donita Tenorio Work Phone: [facility] 01-10-2022 20:30-0400 Respiratory rate 18 /min DO Donita Tenorio Work Phone: [facility] 01-10-2022 20:30-0400 SaO2% (BldA) [Mass fraction] 96 % DO Donita Tenorio Work Phone: [facility] 01-10-2022 20:30-0400 Systolic blood pressure 151 mm[Hg] DO Donita Tenorio Work Phone: [facility] 01-10-2022 13:34-0400 Body height 167.64 cm DO Donita Tenorio Work Phone: [facility] 01-10-2022 13:34-0400 Body mass index (BMI) [Ratio] 37.1 kg/m2 DO Donita Tenorio Work Phone: [facility] 01-10-2022 13:34-0400 Body temperature 97.8 [degF] DO Donita Tenorio Work Phone: [facility] 01-10-2022 13:34-0400 Body weight 104.32 kg DO Donita [employer] Work Phone: [facility] 01-02-2022 14:30-0400 Body height 170.18 cm Agus Pedroza Other [employer] Other 01-02-2022 14:30-0400 Diastolic blood pressure 88 mm[Hg] Agus Pedroza Other [employer] Other 01-02-2022 14:30-0400 SaO2% (BldA) [Mass fraction] 99 % Agus Pedroza Other [employer] Other 01-02-2022 14:30-0400 Systolic blood pressure 120 mm[Hg] Agus Pedroza Other [employer] Other 08-29-2021 15:30-0500 Body height 170.18 cm Nury Martin Other [employer] Other 07-10-2021 14:00-0400 Body height 170.18 cm Same Rizkalla Other [employer] Other 07-10-2021 14:00-0400 Diastolic blood pressure 80 mm[Hg] Sameh Rizkalla Other [employer] Other 07-10-2021 14:00-0400 SaO2% (BldA) [Mass fraction] 99 % Sameh Rizkalla Other [employer] Other 07-10-2021 14:00-0400 Systolic blood pressure 130 mm[Hg] Sameh Rizkalla Other [employer] Other 12-29-2020 08:20-0400 Pulse (Heart Rate) 85 /min [facility] Work Phone: 12-29-2020 08:10-0400 Body Temperature 98.1 [degF] [employer] Phone: 12-29-2020 08:10-0400 BP Diastolic 79 mm[Hg] [employer] Phone: 12-29-2020 08:10-0400 BP Systolic 155 mm[Hg] [employer] Phone: 12-29-2020 08:10-0400 Pulse Oximetry 100 % Datam Phone: 12-29-2020 08:10-0400 Respiratory Rate 18 /min Datam Phone: 12-28-2020 11:45-0400 BMI (Body Mass Index) 47.45 kg/m2 Datam Phone: 12-28-2020 11:45-0400 Body weight 133.36 kg Datam Phone: 12-28-2020 11:45-0400 Height 167.6 cm Datam Phone: Encounters Encounter Date Encounter Type Care Provider Facility Start: 02-20-2024 End: 02-20-2024 ambulatory [facility] Start: 02-19-2024 End: 02-20-2024 ambulatory DONITA Neves [place] Facility:[facility] Start: 02-10-2024 End: 02-11-2024 ambulatory DONITA Neves [facility] Start: 02-08-2024 End: 02-13-2024 Evaluation and management of inpatient CRISTIANA Jackson [facility] Start: 02-07-2024 End: 02-09-2024 Emergency department patient visit KATHY HENAO [facility] Start: 02-04-2024 End: 02-05-2024 ambulatory DONITA TENORIO Facility:[facility] Start: 01-29-2024 ambulatory UNKNOWN PROVIDER Facili ty:[facility] Start: 01-29-2024 End: 01-31-2024 ambulatory UNKNOWN PROVIDER Facility:[facility] Start: 01-29-2024 Encounter for other preprocedural examination CECE SZYMANSKI [facility] Start: 01-29-2024 End: 01-31-2024 Office consultation new/estab patient 80 min Cece Szymanski 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 Work Phone: [facility] Pre-Admission Testing Comment on above: Preop testing (Prima ry Dx); Type 2 diabetes mellitus without complication, unspecified whether half-way insulin use (HCC); Cardiomegaly; Abnormal electrocardiogram (ECG) (EKG); Abnormal electrocardiogram (ECG) (EKG); Body mass index (BMI) 37.0-37.9, adult Start: 01-29-2024 End: 01-31-2024 Patient encounter status Cece Szymanski MICROFILM PROCESSOR-MIGSIF Work Phone: [employer] Work Phone: Start: 01-21-2024 End: 01-22-2024 ambulatory DONITA [facility] Facility:[facility] Start: 01-14-2024 End: 01-14-2024 ambulatory DO Donita [place] Work Phone: [facility] Work Phone: Start: 01-14-2024 End: 01-14-2024 Patient encounter procedure DO [facility] Work Phone: [facility] Work Phone: Start: 01-13-2024 End: 01-13-2024 Emergency department patient visit Donita [place] Facility:[facility] Start: 01-13-2024 End: 01-13-2024 Emergency department patient visit DO [facility] Work Phone: [facility] Work Phone: Start: 01-13-2024 End: 01-13-2024 ambulatory [facility] Work Phone: Start: 01-13-2024 End: 01-13-2024 Patient encounter procedure [facility] Work Phone: Start: 01-09-2024 Telephone encounter Nunu Gallardo CMA [facility] Start: 01-07-2024 End: 01-09-2024 Emergency department patient visit KATHY HENAO [facility] Start: 01-07-2024 End: 01-08-2024 ambulatory DONITA TENORIO [facility] Start: 01-02-2024 End: 01-03-2024 ambulatory DEMETRI SUBRAMANIAN Facility:[facility] Start: 01-01-2024 End: 01-01-2024 ambulatory UNKNOWN PROVIDER Facility:[facility] Start: 12-13-2023 Telephone encounter Joseline Beckett [facility] Comment on above: Appointment Start: 12-12-2023 End: 12-13-2023 ambulatory [facility] Start: 12-12-2023 End: 12-12-2023 ambulatory [facility] Start: 12-12-2023 Telephone encounter Yue Amador 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 Work Phone: [facility] Start: 12-12-2023 End: 12-12-2023 Office outpatient visit 25 minutes Yue Amador 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 Work Phone: [facility] Comment on above: Chronic idiopathic c onstipation (Primary Dx); Nausea and vomiting, unspecified vomiting type; Generalized abdominal pain; Stage 3 chronic kidney disease, unspecified whether stage 3a or 3b CKD ([facility]-HCC); Uncontrolled type 2 diabetes mellitus with hyperglycemia ([facility]-HCC) Start: 12-05-2023 Telephone encounter Ashley Hopkins RN [facility] Start: 12-05-2023 End: 12-06-2023 ambulatory DONITA TENORIO Facility:[facility] Start: 11-06-2023 ambulatory UNKNOWN [facility] Start: 09-17-2023 End: 09-17-2023 ambulatory Agus Pedroza Other [facility] Other Start: 09-17-2023 Office outpatient vi sit 15 minutes Agus Pedroza [facility] Start: 09-17-2023 End: 09-17-2023 Patient encounter procedure [facility] Work Phone: Start: 09-11-2023 End: 09-12-2023 ambulatory UNKNOWN PROVIDER Facility:[facility] Start: 09-11-2023 End: 09-11-2023 Office outpatient visit 15 minutes Demetri Subramanian MD [facility]: [facility] Comment on above: 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, unspecified proliferative retinopathy type (HCC) (Primary Dx) Start: 08-28-2023 End: 08-29-2023 ambulatory DONITA P COBY Facility:[facility] Start: 08-02-2023 End: 08-03-2023 ambulatory Radha Bell [facility] Start: 08-02-2023 End: 08-03-2023 Evaluation and management of inpatient DO Christopher Jack Work Phone: [facility] Inpatient Work Phone: Start: 08-02-2023 End: 08-03-2023 observation encounter DO Christopher Roberts Work Phone: [facility] Work Phone: Start: 08-02-2023 Non-patient / Non-visit DO Ramos on Roberts Work Phone: [facility] Start: 07-25-2023 End: 07-26-2023 ambulatory DONITA P HOUSE Facility:[facility] Start: 07-24-2023 End: 07-24-2023 ambulatory UN[facility]ER [facility] Start: 07-24-2023 End: 07-24-2023 Office outpatient visit 15 minutes Demetri Subramanian MD Work Phone: [facility] Ophthalmology Comment on above: 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, unspecified proliferative retinopathy type (HCC) (Primary Dx) Start: 2023 End: 07-12-2023 ambulatory DONITA P HOUSE Facility:[facility] Start: 06-26-2023 End: 09-25-2023 ambulatory UNKNOWN PROVIDER Facility:[facility] Start: 06-26-2023 End: 06-26-2023 Office outpatient visit 15 minutes Demetri Subramanian MD Work Phone: [facility] Ophthalmology Comment on above: 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, unspecified proliferative retinopathy type (HCC) (Primary Dx) Start: 06-20-2023 End: 06-20-2023 ambulatory Tondra Mapus Other [facility] Other Start: 06-20-2023 Telephone encounter Tondra Mapus [facility] Start: 05-21-2023 End: 05-21-2023 ambulatory Agus Pedroza Other [facility] Other Start: 05-21-2023 Office outpatient ne w 30 minutes Agus Pedroza [facility] Start: 05-07-2023 End: 05-07-2023 ambulatory Tondra Mapus Other [facility] Other Start: 05-07-2023 Telephone encounter Tondra Mapus [facility] Start: 04-16-2023 End: 04-18-2023 Evaluation and management of inpatient Nkechi Kc Facility:[facility] Start: 04-15-2023 End: 04-18-2023 Evaluation and management of inpatient DO Donita Tenorio Work Phone: [facility] [place] [facility] Work Phone: Start: 04-11-2023 End: 04-11-2023 ambulatory Eliud Eve Other [facility] Other Start: 04-11-2023 Telephone encounter Eliud Eve [facility] Start: 04-10-2023 End: 04-10-2023 ambulatory Eliud Eve Other [facility] Other Start: 04-10-2023 Telephone encounter Eliud Eve [facility] Start: 03-03-2023 End: 03-09-2023 Evaluation and management of inpatient DR MURRAY YEBOAH Facility:[facility] Start: 02-04-2023 Rx Zak Metzger Work Phone: [facility] [facility] DO Work Phone: Start: 01-31-2023 End: 01-31-[address] DONITA TENORIO Facility:[facility] Start: 01-21-2023 End: 01-21-2023 ambulatory Tondra Mapus Other [facility] Other Start: 01-21-2023 Telephone encounter Tondra Mapus [facility] Start: 01-15-2023 End: 01-15-2023 ambulatory Tondra Mapus Other [facility] Other Start: 01-15-2023 Telephone encounter Tondra Mapus [facility] Start: 01-11-2023 End: 01-11-2023 ambulatory Tondra Mapus Other [facility] Other Start: 01-11-2023 Telephone encounter Tondra Mapus [facility] Start: 01-01-2023 End: 01-01-2023 ambulatory Tondra Mapus Other [facility] Other Start: 01-01-2023 Telephone encounter Tondra Mapus [facility] Start: 12-19-2022 End: 12-19-2022 Office outpatient visit 15 minutes Demetri Subramanian MD Work Phone: [facility] Ophthalmology Comment on above: 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, unspecified proliferative retinopathy type (HCC) (Primary Dx) Start: 10-17-2022 End: 10-17-2022 Office outpatient visit 15 minutes Demetri Subramanian MD Work Phone: [facility] Ophthalmology Comment on above: 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, unspecified proliferative retinopathy type (HCC) (Primary Dx) Start: 10-03-2022 End: 10-04-2022 Evaluation and management of inpatient DR DONITA TENORIO Facility: Start: 10-01-2022 End: 10-01-2022 ambulatory Tondra Mapus Other [facility] Other Start: 10-01-2022 Telephone encounter Tondra Mapus [facility] Start: 09-03-2022 End: 09-03-2022 ambulatory VJ HADDAD II Facility:[facility] Start: 09-03-2022 Encounter for genera l adult medical examination without abnormal findings VJ HADDAD II [facility] Start: 09-03-2022 End: 09-03-2022 Patient encounter procedure Vj Haddad OD Work Phone: Optometry Comment on above: Disability examinati on (Primary Dx); 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, unspecified whether half-way insulin use (HCC); Type 2 diabetes mellitus with proliferative diabetic retinopathy of left eye without macular edema, unspecified whether terminal operations supervisor insulin use (HCC); Myopia, bilateral; Regular astigmatism, bilateral; Presbyopia Start: 08-28-2022 End: 08-28-2022 ambulatory Tondra Mapus Other [facility] Other Start: 08-28-2022 Telephone encounter Tondra Mapus [facility] Start: 08-27-2022 End: 08-27-2022 ambulatory Tondra Mapus Other [facility] Other Start: 08-27-2022 Telephone encounter Tondra Mapus [facility] Start: 08-16-2022 End: 08-16-2022 ambulatory Tondra Mapus Other [facility] Other Start: 08-16-2022 Telephone encounter Tondra Thiago [facility] Start: 07-31-2022 End: 07-31-[address] DONITA TENORIO Facility: Start: 05-16-2022 (DM) Diabetes Tondra Thiago [facility] Start: 05-16-2022 End: 05-16-2022 ambulatory Tondra Mapus Other [facility] Other Start: 04-21-2022 End: 04-22-2022 Emergency department patient visit DO Donita Tenorio Work Phone: [facility] Start: 04-18-2022 End: 04-18-2022 ambulatory Tondra Mapus Other [employer] Other Start: 04-18-2022 Telephone encounter Tondra Thiago [facility] Start: 03-21-2022 End: 03-21-2022 Office outpatient visit 15 minutes Demetri Subramanian MD Work Phone: [facility] Ophthalmology Comment on above: 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, unspecified proliferative retinopathy type (HCC) (Primary Dx) Start: 03-13-2022 End: 03-13-2022 ambulatory Tondra Mapus Other [facility] Other Start: 03-13-2022 Telephone encounter Tondra Thiago [facility] Start: 03-08-2022 Registered Recurring DO Carlos A Tenorio Work Phone: [facility] Start: 03-08-2022 (RD) Sheetmetal Patternmaker Jazzmine Dukes [facility] Start: 03-08-2022 End: 03-08-2022 ambulatory Jazzmine Dukes Other [facility] Other Start: 03-07-2022 End: 03-07-2022 ambulatory Tondra Mapus Other [facility] Other Start: 03-07-2022 Telephone encounter Tondra Mapus [facility] Start: 03-07-2022 Office outpatient vi sit 15 minutes Donita P House Work Phone: [facility] 250 DO Work Phone: Start: 02-19-2022 End: 02-19-2022 ambulatory Tondra Mapus Other [facility] Other Start: 02-19-2022 Telephone encounter Tondra Mapus [facility] Start: 02-14-2022 End: 02-14-2022 ambulatory Tondra Mapus Other [facility] Other Start: 02-14-2022 Telephone encounter Tondra Mapus [facility] Start: 02-12-2022 Telephone encounter Agustin arzate MD Work Phone: [facility] Ophthalmology Comment on above: Other sympt/complt o f eye Start: 02-06-2022 End: 02-06-2022 ambulatory Tondra Mapus Other [facility] Other Start: 02-06-2022 Nursing evaluation o f patient and report Tondra Mapus [facility] Start: 02-06-2022 Registered Recurring DO Carlos A s House [facility] Start: 01-26-2022 End: 01-26-2022 ambulatory Tondra Mapus Other [facility] Other Start: 01-26-2022 Nursing evaluation o f patient and report Tondra Mapus [facility] Start: 01-22-2022 (DM) Diabetes Tondra Mapus [facility] Start: 01-22-2022 End: 01-22-2022 ambulatory Tondra Das Other [facility] Other Start: 01-19-2022 Tobacco use cessatio n intermediate 3-10 minutes Donita P House Work Phone: [facility] [facility] DO Work Phone: Start: 01-11-2022 End: 01-12-2022 Evaluation and management of inpatient DO Donita House Work Phone: [facility] [place] [facility] Start: 01-10-2022 End: 01-12-2022 Evaluation and management of inpatient DO Donita House Work Phone: [facility] [place] Start: 01-02-2022 End: 01-02-2022 ambulatory Agus Yovany Other [facility] Other Start: 01-02-2022 Office outpatient vi sit 10 minutes Agus Pedroza [facility] Start: 08-29-2021 End: 08-29-2021 ambulatory Nury Ginty Other [facility] Other Start: 08-29-2021 Office outpatient vi sit 15 minutes Nury Ginty [facility] Start: 08-09-2021 End: 08-09-2021 ambulatory Mika Das Other [facility] Other Start: 08-09-2021 Telephone encounter Mika Watson [facility] Start: 07-21-2021 End: 07-21-2021 ambulatory Mika Das Other [facility] Other Start: 07-21-2021 Telephone encounter Mika Watson [facility] Start: 07-20-2021 FQHC visit new patient Mika Das [facility] Start: 07-10-2021 Office outpatient vi sit [address] [facility] Start: 12-28-2020 End: 12-29-2020 Evaluation and management of inpatient SR DONITA TENORIO [facility] Start: 12-28-2020 End: 12-28-2020 Patient encounter [facility] Start: 12-28-2020 End: 12-29-2020 Evaluation and management of inpatient Kole Koehler Work Phone: [facility] Telemetry Comment on above: Peripheral vascular occlusive disease (HCC) (Primary Dx); Renal insufficiency Start: 12-28-2020 End: 12-28-2020 Subsequent hospital visit by physician Virginia Pittman Work Phone: Cardiac Cath Services Comment on above: Arrived Start: 12-20-2020 End: 12-23-2020 Patient encounter procedure [place] Start: 12-20-2020 End: 12-22-2020 Subsequent hospital visit by physician [address] Room [address] [facility] [address] Scan Comment on above: 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) Start: 01-08-2019 End: 01-08-2019 Patient encounter procedure Fatoumata Tirado Facility:[facility] Start: 12-30-2018 End: 12-31-2018 Patient encounter procedure Fatoumata Tirado Facility:[facility] Procedures Date Procedure Procedure Detail Performing Clinician Start: 01-29-2024 Hemoglobin glycosylated a1c Cece Szymanski 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 Work Phone: Start: 01-29-2024 Glucose blood reagent strip Cece Szymanski 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 Work Phone: Start: 01-29-2024 Ecg routine ecg w/le ast 12 lds trcg only w/o i&r To Be Assigned Start: 01-13-2024 CT of abdomen and pe lvis without contrast DO Donita Tenorio Work Phone: Start: 01-13-2024 CT of head without contrast DO Donita [place] Work Phone: Start: 01-13-2024 Plain chest X-[facility] [place] Work Phone: Start: 12-12-2023 Follow-up visit Follow-up GABBY AMADOR Start: 09-11-2023 Computerized ophthal yomi imaging retina Maddie Lau MD Work Phone: Start: 09-11-2023 Intravitreal njx pharmacologic agt spx Demetri Subramanian MD Work Phone: Start: 07-24-2023 Computerized ophthal yomi imaging retina Demetri Subramanian MD Work Phone: Start: 06-26-2023 Computerized ophthal yomi imaging retina Demetri Subramanian MD Work Phone: Start: 06-26-2023 Intravitreal njx pharmacologic agt spx Demetri Subramanian MD Work Phone: Start: 05-29-2023 Microalbumin [Mass/v olume] in Urine by Test strip Ashley Hopkins RN Start: 05-28-2023 Adult depression scr eening assessment Ashley Hopkins RN Start: 04-16-2023 CT of abdomen and pe lvis without contrast DO Donita [place] Work Phone: Start: 01-08-2023 Computerized ophthal yomi imaging retina Maddie Lau MD Work Phone: Start: 01-01-2023 End: 01-08-2023 Oph medical xm&eval comprhnsv estab pt 1/> Diabetes mellitus with insulin therapy (HCC) 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 Comment on above: Diabetes mellitus wi th [...] 10-17-2022 Computerized ophthal yomi imaging retina Demetri Subramanian MD Work Phone: Start: 10-17-2022 Intravitreal njx pharmacologic agt spx Demetri Subramanian MD Work Phone: Start: 09-03-2022 End: 09-03-2022 Computerized ophthalmic imaging retina Vj Haddad OD Work Phone: Start: 03-21-2022 Intravitreal njx pharmacologic agt spx Demetri Subramanian MD Work Phone: Start: 03-21-2022 Computerized ophthal yomi imaging retina Demetri Subramanian MD Work Phone: Start: 01-11-2022 CL LHC & COR Angio DO [facility] Work Phone: Start: 01-10-2022 Duplex scan of lower limb veins DO [facility] Work Phone: Start: 01-10-2022 CT of head without contrast DO [facility] Work Phone: Start: 01-10-2022 SARS Antigen (LFIA) DO [facility] Work Phone: Start: 01-10-2022 Plain chest X-ray DO [facility] Work Phone: Start: 12-29-2020 Gluc bld gluc mntr d ev cleared fda spec home use Unknown Provider Result Start: 12-29-2020 WOUND OSTOMY EVAL AND TREAT [facility] Work Phone: Start: 12-29-2020 Gluc bld gluc [...] 12-20-2020 Cta abdl aorta&bi il iofem w/contrast&postp Lleallan Phuc Work Phone: Start: 12-20-2020 POCT VENOUS Unknown Pr ovider Result Start: 01-13-2019 Anesthesia consultation Fatoumata Tirado Start: 01-08-2019 Anesthesia consultation Fatoumata Tirado Start: 10-14-2011 Total colonoscopy Charl es P [employer] Work Phone: Amputation of lower limb Neeta rles P [employer] Work Phone: Placement of stent i n coronary artery Donita P [employer] Work Phone: Surgical procedure Donita P [employer] Work Phone: Plan of Treatment Date Care Activity Detail Author Start: 04-09-2026 DTaP,Tdap and Td Vaccines (2 - Td or Tdap) DTaP,Tdap and Td Vaccines (2 - Td or Tdap) [facility] Start: 04-09-2026 DTaP/Tdap/Td vaccine (2 - Td) DTaP/Tdap/Td vaccine (2 - Td) [employer] Work Phone: Start: 04-09-2026 Tetanus vaccination [facility] Start: 02-25-2025 Glaucoma screening [facility] Start: 01-28-2025 Creatinine measurement Basic Metabol ic Panel [facility] Start: 01-07-2025 Adult BMI Screening Adult BMI Screen ing [facility] Start: 01-06-2025 Tobacco Screening Tobacco Screening [facility] Start: 12-14-2024 LIPID SCREEN LIPID SCREEN [facility] Start: 12-11-2024 Adult BMI Screening Adult BMI Screen ing [facility] Start: 12-11-2024 Tobacco Screening Tobacco Screening [facility] Start: 11-06-2024 Glaucoma screening Eye Exam [facility] Start: 09-11-2024 Glaucoma screening Eye Exam [facility] Start: 08-03-2024 Creatinine measurement Basic Metabol ic Panel [facility] Start: 08-02-2024 Lipid panel Lipid Profile [facility] Start: 08-02-2024 Thyroid stimulating hormone measurement TSH [facility] Start: 07-30-2024 Hemoglobin A1c measurement Hemoglobin A1C [facility] Start: 07-24-2024 Diabetic retinal eye exam Eye Exam [facility] Start: 07-04-2024 Adult BMI Screening Adult BMI Screen ing [facility] Start: 07-04-2024 Tobacco Screening Tobacco Screening [facility] Start: 06-06-2024 Creatinine measurement Basic Metabol ic Panel [facility] Start: 05-29-2024 Urine screening for protein [facility] Start: 05-28-2024 Depression Screening Depression Scre ening [facility] Start: 05-27-2024 Lipid panel Lipid Profile [facility] Start: 03-25-2024 End: 03-25-2024 Patient encounter procedure 03/25/2024 3:45 PM EDT Office Visit [facility] Op[facility] [address] [place] [address] Demetri Subramanian MD [address] [place] [address] [facility] Start: 02-26-2024 End: 02-26-2024 Patient encounter procedure 02/26/2024 3:45 PM EDT [facility] [address] [place] [address] Demetri Subramanian MD [address] [place] [address] [facility] Start: 02-22-2024 End: 02-22-2024 Patient encounter procedure 02/22/2024 11:00 AM EDT Office Visit [facility] [address] [place] [id number] Yue Amador APRN-MARKETING PROFESSIONAL [address] [place] [address] [facility] Start: 02-21-2024 Diabetic retinal eye exam Eye Exam [facility] Start: 02-08-2024 End: 02-08-2024 Patient encounter procedure 02/08/2024 8:30 AM EDT Office Visit [facility] Ophthalmology (Eye) Residents [address] [place] [address] [facility] Ophthalmology (Eye) Residents Start: 02-07-2024 End: 02-07-2024 Admission to same day surgery center 02/07/2024 11:49 AM EDT - 02/07/2024 1:49 PM EDT Surgery [facility] Main OR [address] [place] [address] Demetri Subramanian MD [address] [facility] [place] [address] VITRECTOMY, POSTERIOR [facility] Comment on above: VITRECTOMY, POSTERIO R Start: 02-07-2024 Subsequent hospital visit by physician 02/07/2024 11:49 AM EDT Hospital Encounter [facility] Main OR [address] [place] [address] Demetri Subramanian MD [address] [facility] [place] [address] [facility] Start: 02-07-2024 End: 02-07-2024 VITRECTOMY, POSTERIOR VITRECTOMY, POSTERIOR Routine scheduled Proliferative diabetic retinopathy of both eyes associated with type 2 diabetes mellitus, unspecified proliferative retinopathy type (HCC) Vitreous hemorrhage of left eye (HCC) 02/07/2024 11:49 AM EDT [facility] Start: 02-01-2024 Hemoglobin A1c measurement Hemoglobin A1C [facility] Start: 01-10-2024 End: 01-10-2024 Patient encounter procedure 01/10/2024 8:30 AM EDT Office Visit [facility] [address] [address] [place] [address] Bonifacio Kenny MD [address] [facility] [place] [id number] [facility] Start: 12-20-2023 Diabetic retinal eye exam Eye Exam [facility] Start: 12-09-2023 End: 12-09-2023 Patient encounter procedure 12/09/2023 9:15 AM EST Office Visit [facility] [address] [facility] [address] [place] [address] Meera Hopkins, 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 [address] [facility] [address] [place] [address] [facility] Start: 11-29-2023 Hemoglobin A1c measurement Hemoglobin A1C [facility] Start: 11-06-2023 End: 11-06-2023 Patient encounter procedure 11/06/2023 3:00 PM EST Office Visit [facility] [address] [place] [address] Demetri Subramanian MD [address] [place] [address] Payroll Accountant, Eye [facility] Start: 10-17-2023 Diabetic retinal eye exam Eye Exam [facility] Start: 09-11-2023 End: 09-11-2023 Patient encounter procedure 09/11/2023 3:00 PM EST Office Visit [facility] [address] [place] [address] Demetri Subramanian MD [address] [place] [address] Payroll Accountant, Eye [facility] Start: 08-06-2023 Basic metabolic 2000 panel - Serum or Plasma Basic Metabolic Panel [facility] Start: 08-03-2023 Patient status observation [facility] Start: 08-03-2023 Patient discharge [facility] Start: 08-02-2023 Bacteria identified in Blood by Culture Blood Culture [facility] Start: 08-02-2023 Microbial culture Blood Culture [facility] Start: 08-02-2023 Evaluation procedure So [facility] Start: 08-02-2023 Hospital admission [facility] Start: 08-02-2023 [facility] Start: 08-02-2023 [facility] Start: 08-02-2023 EKG 12 channel panel So [facility] Start: 08-02-2023 Administrative procedure [facility] Start: 06-14-2023 [facility] Start: 04-18-2023 [facility] Start: 04-18-2023 [facility] Start: 04-16-2023 Referral to housing quality standard inspector [facility] Start: 04-16-2023 Hospital admission [facility] Start: 04-15-2023 Sleep disorder assessment [facility] Start: 04-13-2023 Welcome to Medicare Visit (G0402) Welcome to Medicare Visit (G0402) [facility] Start: 04-03-2023 Hemoglobin A1c measurement Hemoglobin A1C [facility] Start: 03-21-2023 Diabetic retinal eye exam Eye Exam [facility] Start: 02-20-2023 End: 02-20-2023 Patient encounter procedure 02/20/2023 Office Visit Ophthalmology Demetri Subramanian MD [address] [place] [address] Payroll Accountant, Eye [facility] Start: 01-11-2023 Lipid panel [facility] Start: 10-20-2022 Diabetic retinal eye exam Eye Exam [facility] Start: 07-28-2022 Basic metabolic 2000 panel - Serum or Plasma Basic Metabolic Panel [facility] Start: 07-14-2022 Influenza vaccination Influenza Vacc ine (#1) [facility] Start: 07-13-2022 Hemoglobin A1c measurement Hemoglobin A1C [facility] Start: 09-01-2022 Influenza vaccination INFLUENZA (#1) [facility] Start: 05-02-2022 End: 05-02-2022 Patient encounter procedure 05/02/2022 Office Visit Ophthalmology Demetri Subramanian MD [address] [place] [address] Payroll Accountant, Eye [facility] Start: 04-21-2022 Plain chest X-ray XR chest 2V* [facility] Start: 04-18-2022 FUV, Provider: Aicha Terrazas, Status: Pen, Time: 2:30 PM FUV, Provider: Aicha Terrazas, Status: Pen, Time: 2:30 PM [facility] 250 DO Work Phone: Start: 03-21-2022 End: 03-21-2022 Patient encounter procedure 03/21/2022 Office Visit Ophthalmology Demetri Subramanian MD [address] [place] [address] [facility] Start: 02-12-2022 FUV, Provider: Aicha Terrazas, Status: Pen, Time: 1:00 PM FUV, Provider: Aicha Terrazas, Status: Pen, Time: 1:[address] [facility] 250 DO Work Phone: Start: 01-20-2022 Hemoglobin A1c measurement Hemoglobin A1C [facility] Start: 01-10-2022 Duplex scan of lower limb veins US venous duplex LE BI [facility] Start: 01-10-2022 Fluoroscopy of Left Heart using Low Osmolar Contrast Fluoroscopy of Left Heart using Low Osmolar Contrast [facility] Start: 01-10-2022 Fluoroscopy of Multi ple Coronary Arteries using Low Osmolar Contrast Fluoroscopy of Multiple Coronary Arteries using Low Osmolar Contrast [facility] Start: 01-10-2022 Measurement of Cardi ac Sampling and Pressure, Left Heart, Percutaneous Approach Measurement of Cardiac Sampling and Pressure, Left Heart, Percutaneous Approach [facility] Start: 12-29-2021 Creatinine measurement Creatinine [facility] Work Phone: Start: 12-29-2021 Potassium monitoring Potassium monit [facility] Work Phone: Start: 10-14-2021 DEPRESSION ASSESSMENT DEPRESSION ASS ESSMENT [facility] Start: 2021 Administration of varicella zoster vaccine Zoster (Shingles) Vaccine (1 of 2) [facility] Start: 2021 Measurement of occul t blood in single stool specimen FIT [facility] Start: 2021 Screening for malign ant neoplasm of colon CRC Screening [facility] Start: 2021 Shingles (RZV) Vacci ne (1 of 2) Shingles (RZV) Vaccine (1 of 2) [facility] Start: 2021 SHINGRIX VACCINE (1 of 2) SHINGRIX VACCINE (1 of 2) [facility] Start: 12-28-2020 End: 12-28-2020 Appointment 12/28/2020 Appointment [facility] Start: 12-14-2020 Lipid panel Lipid Profile [facility] Start: 2016 COLOGUARD (FIT-DNA) COLOGUARD (FIT-D NA) [facility] Start: 2016 Colonoscopy COLONOSCOPY [facility] Start: 2016 COLORECTAL CANCER SCREENING COLORECTAL CANCER SCREENING [facility] Start: [address] COLONOGRAPHY [facility] Start: 2016 DIABETES SCREEN DIABETES SCREEN [facility] Start: 2016 FECAL OCCULT BLOOD FECAL OCCULT BLOO D [facility] Start: 2016 Screening for malign ant neoplasm of colon [facility] Start: 2016 SIGMOIDOSCOPY SIGMOIDOSCOPY [facility] Start: 2011 Diabetes screen Diabetes screen [employer] Work Phone: Start: 2011 Lipid panel Lipid screen [facility] Work Phone: Start: 1990 Hepatitis A (HAV) Vaccine (optional start 19+ years) Hepatitis A (HAV) Vaccine (optional start 19+ years) [facility] Start: 1990 Hepatitis B vaccination Hepati tis B (HBV) Vaccine (1 of 3 - Risk 3-dose series) [facility] Start: 1990 Urine microalbumin profile DTAP,TDAP,TD (1 - Tdap) [facility] Start: 1989 Adult BMI Follow Up Plan Adult BMI Follow Up Plan [facility] Start: 1989 Diabetic foot examination Diabetic Foot Exam [facility] Start: 1989 Hepatitis C screening Hepatitis C An tibody [facility] Start: 1989 HEPATITIS C SCREENING [facility]ITIS C [facility] Start: 1989 HIV SCREENING HIV SCREENING [facility] Start: 1986 HIV screening [facility] Start: 1981 Lipid panel Lipid screen [facility] Work Phone: Start: 1977 PNEUMOCOCCAL (1 - PCV) PNEUMOCOCCAL (1 - PCV) [facility] Start: 1977 Pneumococcal vaccination [facility] Start: 1976 COVID-19 Vaccine (#1) COVID-19 Vacci ne (#1) [facility] Start: 1976 COVID-19 Vaccine (1) COVID-19 Vaccin e (1) [facility] Start: 01-09-1972 COVID-19 VACCINE (#1) COVID-19 VACCI NE (#1) [facility] Start: 1971 Urine screening for protein Microalbumin [facility] Start: 1971 Cyanocobalamin vitam in b-12 Vitamin B12 [facility] Start: 1971 Diabetic foot examination Foot Exam [facility] Start: 1971 Ejection Fraction Ejection Fraction [facility] Start: 1971 Glaucoma screening Diabetic Op hthalmology Exam [facility] Start: 1971 HEPATITIS B (1 of 3 - 3-dose series) HEPATITIS B (1 of 3 - 3-dose series) [facility] Start: 1971 Hepatitis B vaccination Hepati tis B (HBV) Vaccine (1 of 3 - 3-dose series) [facility] Start: 1971 Hepatitis C [facility] Start: 1971 Screening for malign ant neoplasm of colon Colonoscopy [facility] Start: 1971 Tobacco Counseling Tobacco Counselin g [facility] Bacteria identified in Unspecified specimen by Anaerobe+Aerobe culture [facility] End: 12-28-2020 Basic metabolic 2000 panel Basic Metabolic Panel Lab Routine One Time for 1 Occurrences starting 12/28/2020 until 12/28/2020 [employer] Work Phone: Comment on above: One Time for 1 Occur rences starting 12/28/2020 until 12/28/2020 BM stix glucose measurement FINGERSTICK/GLUCOSE Procedures Routine Preop testing Ordered: 01/29/2024 [employer] Comment on above: Ordered: 01/29/2024 End: 12-28-2020 Catheterization and angiography procedure details panel Diagnostic Cardiac Kitchen Assistant Procedure Cardiac Cath Routine One Time for 1 Occurrences starting 12/28/2020 until 12/28/2020 [employer] Work Phone: Comment on above: One Time for 1 Occur rences starting 12/28/2020 until 12/28/2020 End: 12-28-2020 CBC CBC Lab Routine One Time for 1 Occurrences starting 12/28/2020 until 12/28/2020 [employer] Work Phone: Comment on above: One Time for 1 Occur rences starting 12/28/2020 until 12/28/2020 Comprehensive metabo lic 2000 panel - Serum or Plasma [facility] End: 02-28-2024 Ecg routine ecg w/least 12 lds trcg only w/o i&r EKG 12 LEAD - PERFORM MUSE Routine Preop testing 1 Occurrences starting 01/29/2024 until 02/28/2024 [employer] Work Phone: Comment on above: 1 Occurrences starti ng 01/29/2024 until 02/28/2024 Glucose measurement estimated from glycated hemoglobin [facility] Work Phone: Hemoglobin A1c/Hemoglobin.total in Blood [facility] Work Phone: IgA [Mass/volume] in Serum or Plasma [facility] IgG [Mass/volume] in Serum or Plasma [facility] IgM [Mass/volume] in Serum or Plasma [facility] Immunofixation for Urine [facility] [place] light chains.f ree [Mass/volume] in Serum [facility] [place] light chains.free/Lambda light chains.free [Mass Ratio] in Serum [facility] Lambda light chains. free [Mass/volume] in Serum or Plasma [facility] OCT, RETINA - OU - B OTH EYES OCT, RETINA - OU - BOTH EYES Ophthalmology Routine Diabetes mellitus with insulin therapy (HCC) 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 to underlying condition (HCC) 01/01/2023 5:57 PM EDT [facility] [employer] Work Phone: Oxygen therapy [[facility] Data Set] Initiate Oxygen Therapy Protocol Respiratory Care Routine Daily until discontinued starting 12/28/2020 [employer] Work Phone: Comment on above: Daily until disconti nued starting 12/28/2020 Patient Education [facility] Work Phone: Patient referral [facility] Work Phone: End: 12-20-2020 POCT Creatinine POCT Creatinine Point of Care Testing Routine One Time for 1 Occurrences starting 12/20/2020 until 12/20/2020 [employer] Work Phone: Comment on above: One Time for 1 Occur rences starting 12/20/2020 until 12/20/2020 POCT Glucose [facility] Work Phone: Comment on above: As Needed until disc ontinued starting 12/28/2020 4X Daily (AC & HS) u ntil discontinued starting 12/28/2020 Serum immunofixation [facility] Thyrotropin [Units/volume] in Serum or Plasma [facility] Work Phone: Troponin I.cardiac [Mass/volume] in Serum or Plasma by High sensitivity method [facility] Work Phone: End: 12-28-2020 TYPE AND SCREEN TYPE AND SCREEN Blood Bank Routine One Time for 1 Occurrences starting 12/28/2020 until 12/28/2020 [employer] Work Phone: Comment on above: One Time for 1 Occur rences starting 12/28/2020 until 12/28/2020 [facility] Immunizations Immunization Date Immunization Notes Care Provider Fa rafaelaty 01-29-2024 Hemoglobin A1C Cece Clifford elias 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 Work Phone: [facility] 08-02-2023 Hemoglobin A1C Demetri garland MD Work Phone: [facility] 05-29-2023 Hemoglobin A1C Demetri garland MD Work Phone: [facility] 10-03-2022 Hemoglobin A1C Demetri garland MD Work Phone: [facility] 05-16-2022 Hemoglobin A1C Demetri garland MD Work Phone: [facility] 01-10-2022 Hemoglobin A1C Demetri garland MD Work Phone: [facility] 07-22-2021 Hemoglobin A1C Agustin Hampton MD Work Phone: [facility] 10-14-2020 influenza, injectabl e, quadrivalent, contains preservative Agustin Hampton MD Work Phone: [facility] 10-14-2020 influenza virus vaccine, unspecified formulation Demetri Subramanian MD Work Phone: [facility] 10-01-2020 influenza, injectabl e, quadrivalent, preservative free Donita Neves [place] Work Phone: [place] [address] DO Work Phone: 03-14-2020 pneumococcal polysaccharide vaccine, 23 valent Ashley [facility] 12-23-2019 Influenza, injectabl e, Madin Madelaine Canine Kidney, preservative free, quadrivalent DO [facility] Work Phone: [facility] 04-09-2016 tetanus toxoid, redu minoo diphtheria toxoid, and acellular pertussis vaccine, adsorbed Donita Neves [place] Work Phone: [facility] Payers Date Payer Category Payer Self-pay [id number] 2023 Medicare [id number] 2023 Medicare [id number] 2022 Unknown 2022 Medicare [id number] 2020 Medicaid [id number] [id number] 2018 Private Health Insurance [id number] 1971 Unknown [id number] 2.16.84 0.1.555328.3.579.2.727 1971 Unknown [id number] 2.16.84 0.1.288795.3.579.2.727 1971 Unknown [id number] 2.16.8 40.1.212567.3.579.2.182 1971 Unknown [id number] 2.16.8 40.1.798139.3.579.2.182 1971 Unknown [id number] 2.16.8 40.1.327712.3.579.2.182 1971 Unknown [id number] 2.16.84 0.1.361221.3.579.2.593 1971 Unknown [id number] 2.16.84 0.1.883094.3.579.2.593 1971 Unknown [id number] 2.16.84 0.1.609597.3.579.2.593 1971 Unknown [id number] 2.16.84 0.1.142946.3.579.2.593 1971 Unknown [id number] 2.16.8 40.1.363397.3.579.2.1286 1971 Unknown [id number] 2.16.8 40.1.057107.3.579.2.1286 1971 Unknown [id number] 2.16.8 40.1.635925.3.579.2.1285 1971 Unknown [id number] 2.16.8 40.1.247831.3.579.2.1285 1971 Unknown [id number] 2.16. 840.1.723669.3.579.2. 1971 Unknown [id number] 2.16. 840.1.181718.3.579.2. 1971 Unknown [id number] 2.16. 840.1.019281.3.579.2. 1971 Unknown [id number] 2.16. 840.1.234445.3.579.2. 1971 Unknown [id number] 2.16. 840.1.602516.3.579.2. 1971 Unknown [id number] 2.16. 840.1.349991.3.579.2. 1971 Unknown [id number] 2.16. 840.1.303802.3.579.2. 1971 Unknown [id number] 2.16. 840.1.624747.3.579.2. 1971 Unknown [id number] 2.16.8 40.1.205334.3.579.2.1285 1971 Unknown [id number] 2.16.8 40.1.324510.3.579.2.1285 1971 Unknown [id number] 2.16.8 40.1.829453.3.579.2.1285 1971 Unknown [id number] 2.16.8 40.1.718753.3.579.2.1285 1971 Unknown [id number] 2.16.8 40.1.325515.3.579.2.1285 1971 Unknown [id number] 2.16.8 40.1.718863.3.579.2.1285 1971 Unknown [id number] 2.16.8 40.1.569934.3.579.2.1285 1971 Unknown [id number] 2.16.8 40.1.803851.3.579.2.1285 1971 Unknown [id number] 2.16.8 40.1.832119.3.579.2.1285 1971 Unknown [id number] 2.16.8 40.1.688645.3.579.2.1285 1971 Unknown [id number] 2.16.8 40.1.933216.3.579.2. 1971 Unknown [id number] 2.16.8 40.1.119619.3.579.2. 1971 Unknown [id number] 2.16.8 40.1.684473.3.579.2. 1971 Unknown [id number] 2.16.8 40.1.844593.3.579.2. 1971 Unknown [id number] 2.16.8 40.1.090602.3.579.2. 1971 Unknown [id number] 2.16.8 40.1.393352.3.579.2.8 1959 Private Health Insurance [id number] 1.2.840.939292.1.13.239.2.7.3.775623.315 1959 Unknown [id number] Unknown [id number] Unknown [id number] 2.16 840.1.048029.3.579.2.1149 Unknown [id number] 2.16 840.1.798216.3.579.2.1149 Unknown [id number] 2.16 840.1.175924.3.579.2.1149 Unknown [id number] 2.16. 840.1.337538.3.579.2.1149 Unknown [id number] 2.16.8 40.1.215214.3.579.2.531 Unknown [id number] 2.16.8 40.1.157169.3.579.2.531 Social History Date Type Detail Facility Start: 12-20-2020 Tobacco smoking stat [facility] Unknown if ever smoked [facility] Start: 1970 Sex Assigned At Not on file M [employer] Phone: Start: 08-24-2022 End: 09-03-2022 Exposure to SARS-CoV-2 (event) Not sure [employer] Phone: Start: 12-28-2020 End: 04-21-2022 Tobacco smoking status NHIS Former smoker [facility] Start: 12-28-2020 End: 05-25-2023 Tobacco use and exposure Never used [employer] Phone: Start: 12-28-2020 End: 01-29-2024 Alcohol intake Ex-drinker (finding) [employer] Phone: Start: 01-10-2022 End: 01-14-2024 Tobacco smoking status NHIS Smoker (finding) [facility] Start: 1970 Sex Assigned At Male F [facility] Start: 05-25-2023 End: 01-29-2024 No illicit drug use No illicit drug use [employer] [facility] Comment on above: coffee 1 big gulp - pop 4 daily; 1/2 ppd; Start: 01-15-2023 End: 01-29-2024 Sex Assigned At [employer] [facility] Start: 09-03-2022 End: 01-29-2024 Tobacco smoking status NHIS Smokes tobacco daily [facility] History of tobacco use Cigarette Smoker [facility] Start: 08-02-2023 [facility] Start: 08-02-2023 Tobacco smoking stat [facility] Current every day smoker [facility] Start: 07-04-2023 End: 01-07-2024 Alcohol intake Current non-drinker of alcohol (finding) [facility] Do you belong to any clubs or organizations such as buddhism groups, unions, fraternal or athletic groups, or school groups? No [facility] Are you now , , , , never or living with a partner? [facility] How often to you hav e a drink containing alcohol? Never [facility] How many standard dr inks containing alcohol do you have on a typical day? Patient does not drink [facility] Do you feel stress - tense, restless, nervous, or anxious, or unable to sleep at night because your mind is troubled all the time - these days [OSQ] Only a little [facility] Has the [employer], or water [employer] threatened to shut off services in your home in past 12Mo Yes [facility] Start: 01-29-2024 Tobacco Comment 15 cigs per day [facility] Procedure Code Equipment Code Equipment Origin al Text Equipment Identifier Dates USE WITH INSULIN FIVE TIMES DAILY AND NEEDED [id number] Start: 10-23-2020 TEST FIVE TIMES DAILY [id number] Start: 10-23-2020 Goals Date Patient Goal Desired Activity /State Personal health goal Comment on above: Formatting of this n ote might be different from the original. Evaluation of progress towards goal: safe transition form PMH to [facility] for heart cath, pt plans to discharge home with and family support pending clinical course and recommendations. Personal health goal Comment on above: Formatting of this n ote might be different from the original. Evaluation of progress towards goal: will have echo today Functional Status Date Assessment Result Facility 04-18-2023 Functional status Patient at Baseline [facility] Work Phone: 02-14-2022 PHQ-9 [id number] Mild (5-9) [facility] [address] DO Work Phone: 01-19-2022 PHQ-9 [id number] Moderate (10-14) 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 - 01/29/2024 3:00 PM EDTPAT Appt H&P - Tai Cassandra - 01/29/2024 2:15 PM EDTPAT Appt H&P - Tai, Cassandra - 01/29/2024 2:15 PM EDT Note Date & Type Note Facility 02-10-2024 Note Entered by MURRAY TENORIO DO on February 10, 2024 15:03:48 EDT From: DONITA TENORIO DO To: [facility] Sent: 02/10/2024 15:03:48 EDT Subject: Medication Management Documented Complete:clopidogrel (clopidogrel 75 mg oral tablet) Signed by DONITA TENORIO DO 02/10/2024 15:03:00 EDT Approved with modifications: clopidogrel (Clopidogrel Bisulfate 75MG TABS) TAKE 1 TABLET BY MOUTH DAILY Qty: 28 tab(s) Days Supply: 28 Refills: 5 Substitutions Allowed Route To Pharmacy - [facility] Note from Pharmacy: Maximum Refills Reached Patient matched by DONITA TENORIO DO on 02/10/2024 15:03:22 EDT From: [facility] To: DONITA TENORIO DO Sent: February 10, 2024 1:54:50 PM CDT Subject: Medication Management Due: February 11, 2024 12:04:51 AM CDT On Hold Pending Signature Drug: clopidogrel (clopidogrel 75 mg oral tablet), TAKE 1 TABLET BY MOUTH DAILY Quantity: 28 tab(s) Days Supply: 28 Refills: 9 Substitutions Allowed Notes from Pharmacy: Maximum Refills Reached Dispensed Drug: clopidogrel (clopidogrel 75 mg oral tablet), TAKE 1 TABLET BY MOUTH DAILY Quantity: 28 tab(s) Days Supply: 28 Refills: 0 Substitutions Allowed Notes from Pharmacy: Maximum Refills Reached [facility] 01-29-2024 Note Pre-Admission Testin g Consultation Chandler Minor, [id number] 53 year old Male 01/31/2024 Consult placed to [facility] by Dr. Subramanian due to significant PMH of CVA, DM, HTN, LA, PVD, CRF, HLD PAT Triage Risk Score Total Score: 23 7 Patient has poorly controlled Diabetes. 3 Patient last BP greater than 160/110. 1 Patient has exhibited symptoms of CVA in the past. 2 Patient has exhibited symptoms of CHF in the past. 2 Patient is receiving or has recently received insulin. 1 Patient has history of coronary artery disease. 1 Patient has history of myocardial infarction. 1 Patient has exhibited symptoms of Diabetes in the past. 2 Patient is on more than 2 antihypertension medications. 1 Patient has history of hyperlipidemia. 1 Patient has exhibited symptoms of Chronic Renal Failure in the past. 1 Patient has history of peripheral vascular disease. Chandler Minor is scheduled for (Left) VITRECTOMY, POSTERIOR on 02/07/2024. Preop diagnosis of: Pre-Op Diagnosis Codes: * Proliferative diabetic retinopathy of both eyes associated with type 2 diabetes mellitus, unspecified proliferative retinopathy type (HCC) [E11.3593] * Vitreous hemorrhage of left eye (HCC) [H43.12] HISTORY OF PRESENT ILLNESS: patient presents with c/o seeing birds in b/L eyes. endorses Sensitivity to light and occ eye pain. Blurry, cloidy vision. Patient is here for pre-admission optimization and education prior to surgery. Currently denies fever, chills, new cough, SOB or CP. RECENT ILLNESS: Serious illness or hospitalization within the last six months. Yes July STOP BANG: STOP-BANG Row Name 01/29/24 1500 History of sleep apnea? 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] Shortness of breath [R06.02] Stroke ([facility]) [I63.9] Diabetes mellitus with insulin therapy ([facility]) [E11.9, Z79.4] Proliferative diabetic retinopathy of both eyes associated with type 2 diabetes mellitus ([facility]) [E11.3593] Vitreous hemorrhage of left eye ([facility]) [H43.12] Chronic renal failure [N18.9] Anxiety [F41.9] CHF with cardiomyopathy ([facility]) [I50.9, I42.9] Chronic cough [R05.3] Coronary atherosclerosis [I25.10] Clotting disorder ([facility]) [D68.9] Depression [F32.A] HLD (hyperlipidemia) [E78.5] Hypothyroidism [E03.9] Iron deficiency anemia [D50.9] Migraines [G43.909] Macular degeneration [H35.30] NSTEMI (non-ST elevated myocardial infarction) ([facility]) [I21.4] Prsnl hx of TIA (TIA), and cereb infrc w/o resid deficits [Z86.73] Asthma ([facility]) [J45.909] Sleep apnea [G47.30] Type 2 diabetes mellitus with kidney complication, with long-term current use of insulin ([facility]) [E11.29, Z79.4] Peripheral vascular disease ([facility]) [I73.9] SOCIAL HISTORY: reports that he does not currently use drugs. Social History Tobacco Use Smoking status: Every Day Current packs/day: 0.75 Types: Cigarettes Tobacco comments: 15 cigs per day Substance Use Topics Alcohol use: Not Currently Drug use: Not Currently MEDICAL HISTORY: No past medical history on file. SURGICAL HISTORY: No past surgical history on file. ANESTHESIA REVIEW OF SYSTEMS: Eyes/ENT: vitreous hemorrhage of left eye, diabetic retinopathy, macular degeneration Teeth: Broken Teeth right bottom Pulmonary: sarcoidosis s/p bx, PRAVEENA, asthma well controlled-rescue inhaler 1x per month Cardio-vascular: HTN, NSTEMI 05/2023, PVD s/p RLE stent, HLD, CAD, CHF, cardiomyopathy and denies CP, SOB, PEREZ, syncope or palpitations G.I./ Hepatic: possible gastroparesis waiting for results of swallow study, GERD Renal/: CKD Neurological: CVA 2019, TIA, migraines, neuropathy Gynecological: N/A Psychiatric: anxiety, depression, panic attacks Musculoskeletal: right BKA Endocrine: DM 2 BG 234 in PAT, hypothyroid Hematologic: JEIMY, DVT RLE Constitutional: gained more than 10 pounds in the past month Skin: abrasion on right forearm and left lateral lower leg; scalp abscess removed x2 PREVIOUS ANESTHETIC COMPLICATIONS: no history of difficult intubation , adverse effects of anesthetic agents, or family history of anesthesia-related problems, nor malignant hyperthermia and seizure with sarcoidosis biopsy CURRENT MEDICATION LIST: Current Outpatient Medications Medication Sig Dispense Refill bumetanide (BUMEX) 2 MG tablet See Instructions, Instructions: TAKE 1 TABLET BY MOUTH TWICE A DAY BEFORE MEALS, # 56 tab(s), 0 Refill(s), Pharmacy: [facility] - , TAKE 1 TABLET BY MOUTH TWICE A DAY BEFORE MEALS rOPINIRole (REQUIP) 2 MG tablet Take 1 Tablet by mouth 3 times daily. atorvastatin (LIPITOR) 80 mg tablet sacubitril-valsartan (ENTRESTO) 24-26 MG TABS tablet Take by mouth (more content not included)... [facility] [employer] [facility] 01-29-2024 Instructions Cece Szymanski APRN-MARKETING PROFESSIONAL - 01/29/2024 3:10 PM EDT On the morning of your surgery, please take only the following medications, with a small sip of water: levothyroxine (SYNTHROID) 25 MCG tablet omeprazole (PRILOSEC) 20 MG capsule terazosin (HYTRIN) 2 MG capsule isosorbide dinitrate (ISORDIL) 30 MG tablet CARvedilol (COREG) 12.5 MG tablet citalopram (CeleXA) 20 MG tablet Do not take vitamins, losartan, bumetanide the morning of surgery Do not take trazodone the night before surgery Do not take ropinirole the night before or the morning of surgery Stop aspirin 1 week before surgery (last dose on 01/29) Stop plavix 5 days before surgery (last dose on 01/31) You will receive a call the day before surgery between 10 am and 3 pm notifying you what time to arrive for surgery. No solid foods, dairy, gum, or mints/hard candy after midnight. Clear liquids such as water, apple juice, abrahan delmy, gatorade, coffee and tea without dairy or creamer are allowed up to 2 hours before arrival time. Make sure hair, face, and body are clean. Do not apply lotions, creams, powders, ointments, deodorant, make-up or cologne/perfume the morning of surgery. Remove all body piercing's and jewelry. Do not take Ibuprofen, Aleve, Advil, Motrin or any other NSAIDS (celebrex, meloxicam, naproxen, diclofenac) 3 days before surgery. May take over the counter Acetaminophen (Tylenol) as needed for pain. Please hold all Vitamin E, [place] 3, fish oil and herbal supplements for 1 week prior to surgery. documented in this encounter [facility] 01-29-2024 History of Present illness Narrative Images from the original note were not included. Pre-Admission Testing Consultation Chandler Minor, [id number] 53 year old Male 01/31/2024 Consult placed to [facility] by Dr. Subramanian due to significant PMH of CVA, DM, HTN, LA, PVD, CRF, HLD [facility] Triage Risk Score Total Score: 23 7 Patient has poorly controlled Diabetes. 3 Patient last BP greater than 160/110. 1 Patient has exhibited symptoms of CVA in the past. 2 Patient has exhibited symptoms of CHF in the past. 2 Patient is receiving or has recently received insulin. 1 Patient has history of coronary artery disease. 1 Patient has history of myocardial infarction. 1 Patient has exhibited symptoms of Diabetes in the past. 2 Patient is on more than 2 antihypertension medications. 1 Patient has history of hyperlipidemia. 1 Patient has exhibited symptoms of Chronic Renal Failure in the past. 1 Patient has history of peripheral vascular disease. Chandler Minor is scheduled for (Left) VITRECTOMY, POSTERIOR on 02/07/2024. Preop diagnosis of: Pre-Op Diagnosis Codes: * Proliferative diabetic retinopathy of both eyes associated with type 2 diabetes mellitus, unspecified proliferative retinopathy type ([facility]) [E11.3593] * Vitreous hemorrhage of left eye ([facility]) [H43.12] HISTORY OF PRESENT ILLNESS: patient presents with c/o seeing birds in b/L eyes. endorses Sensitivity to light and occ eye pain. Blurry, cloidy vision. Patient is here for pre-admission optimization and education prior to surgery. Currently denies fever, chills, new cough, SOB or CP. RECENT ILLNESS: Serious illness or hospitalization within the last six months. Yes July STOP BANG: STOP-BANG Row Name 01/29/24 1500 History of sleep apnea? 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] Shortness of breath [R06.02] Stroke ([facility]) [I63.9] Diabetes mellitus with insulin therapy ([facility]) [E11.9, Z79.4] Proliferative diabetic retinopathy of both eyes associated with type 2 diabetes mellitus ([facility]) [E11.3593] Vitreous hemorrhage of left eye ([facility]) [H43.12] Chronic renal failure [N18.9] Anxiety [F41.9] CHF with cardiomyopathy ([facility]) [I50.9, I42.9] Chronic cough [R05.3] Coronary atherosclerosis [I25.10] Clotting disorder ([facility]) [D68.9] Depression [F32.A] HLD (hyperlipidemia) [E78.5] Hypothyroidism [E03.9] Iron deficiency anemia [D50.9] Migraines [G43.909] Macular degeneration [H35.30] NSTEMI (non-ST elevated myocardial infarction) ([facility]) [I21.4] Prsnl hx of TIA (TIA), and cereb infrc w/o resid deficits [Z86.73] Asthma ([facility]) [J45.909] Sleep apnea [G47.30] Type 2 diabetes mellitus with kidney complication, with long-term current use of insulin ([facility]) [E11.29, Z79.4] Peripheral vascular disease ([facility]) [I73.9] SOCIAL HISTORY: reports that he does not currently use drugs. Social History Tobacco Use Smoking status: Every Day Current packs/day: 0.75 Types: Cigarettes Tobacco comments: 15 cigs per day Substance Use Topics Alcohol use: Not Currently Drug use: Not Currently MEDICAL HISTORY: No past medical history on file. SURGICAL HISTORY: No past surgical history on file. ANESTHESIA REVIEW OF SYSTEMS: Eyes/ENT: vitreous hemorrhage of left eye, diabetic retinopathy, macular degeneration Teeth: Broken Teeth right bottom Pulmonary: sarcoidosis s/p bx, PRAVEENA, asthma well controlled-rescue inhaler 1x per month Cardio-vascular: HTN, NSTEMI 05/2023, PVD s/p RLE stent, HLD, CAD, CHF, cardiomyopathy and denies CP, SOB, PEREZ, syncope or palpitations G.I./ Hepatic: possible gastroparesis waiting for results of swallow study, GERD Renal/: CKD Neurological: CVA 2019, TIA, migraines, neuropathy Gynecological: N/A Psychiatric: anxiety, depression, panic attacks Musculoskeletal: right BKA Endocrine: DM 2 BG 234 in PAT, hypothyroid Hematologic: JEIMY, DVT RLE Constitutional: gained more than 10 pounds in the past month Skin: abrasion on right forearm and left lateral lower leg; scalp abscess removed x2 PREVIOUS ANESTHETIC COMPLICATIONS: no history of difficult intubation , adverse effects of anesthetic agents, or family history of anesthesia-related problems, nor malignant hyperthermia and seizure with sarcoidosis biopsy CURRENT MEDICATION LIST: Current Outpatient Medications Medication Sig Dispense Refill bumetanide (BUMEX) 2 MG tablet See Instructions, Instructions: TAKE 1 TABLET BY MOUTH TWICE A DAY BEFORE MEALS, # 56 tab(s), 0 Refill(s), Pharmacy: [facility] - , TAKE 1 TABLET BY MOUTH TWICE A DAY BEFORE MEALS rOPINIRole (REQUIP) 2 MG tablet Take 1 Tablet by mouth 3 times daily. atorvastatin (LIPITOR) 80 mg tablet sacubitril-valsartan (ENTRESTO) 24-26 MG TABS tablet Take by mouth every 12 (twelve) hours. (Patient not taking: Reported on 01/30/2024) senna-docusate (SENOKOT-S) 8.6-50 MG per tablet Take 1 Tablet by mouth daily. (Patient not taking: Reported on 01/30/2024) tamsulosin (FLOMAX) 0.4 MG capsule See Instructions, Instructions: TAKE 1 CAPSULE BY MOUTH AT BEDTIME, # 28 cap(s), 0 Refill(s), Pharmacy: [facility] - , TAKE 1 CAPSULE BY MOUTH AT BEDTIME acetaminophen (Acetaminophen 8 Hour) 650 MG CR tablet 0 Refill(s) (Patient not taking: Reported on 01/30/2024) hydrALAZINE (APRESOLINE) 2 mg/mL oral suspension 0 Refill(s) (Patient not taking: Reported on 01/30/2024) nitroglycerin (NITRODUR) 0.1 mg/HR patch 0 Refill(s) (Patient not taking: Reported on 11/06/2023) Polyethylene Glycol 3350 4 g PACK 0 Refill(s) Roflumilast 0.3 % CREA 500 mcg. (Patient not taking: Reported on 01/30/2024) Cholecalciferol (Vitamin D-3) 25 MCG (1000 UT) CAPS 0 Refill(s) (Patient not taking: Reported on 01/30/2024) benzonatate (TESSALON) 100 MG capsule Take by mouth every 8 hours. (Patient not taking: Reported on 01/30/2024) bumetanide (BUMEX) 1 MG tablet Instructions: take 1 tablet by mouth once daily (Patient not taking: Reported on 01/30/2024) cefepime (MAXIPIME) 2 g injection 2 g every 8 hours. (Patient not taking: Reported on 01/30/2024) cyclobenzaprine (FLEXERIL) 5 MG tablet 0 Refill(s) (Patient not taking: Reported on 01/30/2024) econazole nitrate 1 % cream Jardiance 10 MG tablet (Patient not taking: Reported on 01/30/2024) vitamin D2 ergocalciferol (DRISDOL) 1.25 MG (18294 UT) capsule Take by mouth. fluticasone (FLONASE) 50 mcg/act nasal inhaler Use in each nostril. (Patient not taking: Reported on 01/30/2024) GUAIFENESIN ORAL Take by mouth every 12 hours. (Patient not taking: Reported on 01/30/2024) HYDROCODONE-ACETAMINOPHEN ORAL Take by mouth. (Patient not taking: Reported on 01/30/2024) losartan (COZAAR) 50 MG tablet metformin (GLUCOPHAGE) 1000 MG tablet (Patient not taking: Reported on 01/30/2024) nystatin (MYCOSTATIN) 100,000 unit/g powder Apply topically. (Patient not taking: Reported on 01/30/2024) pantoprazole (PROTONIX) 40 MG tablet 0 Refill(s) (Patient not taking: Reported on 01/30/2024) roflumilast (DALIRESP) 500 MCG TABS tablet Take 500 mcg by mouth daily. (Patient not taking: Reported on 01/30/2024) erythromycin (ROMYCIN) 5 MG/GM ophthalmic ointment Place 0.5 Inches in both eyes 4 times daily. (Patient not taking: Reported on 01/30/2024) 3.5 g 0 terazosin (HYTRIN) 2 MG capsule Take 2 mg by mouth daily. (Patient not taking: Reported on 11/06/2023) levothyroxine (SYNTHROID) 25 MCG tablet Take 25 mcg by mouth daily. mometasone (ELOCON) 0.1 % cream mometasone 0.1 % topical cream nitroglycerin (NITRODUR) 0.1 mg/HR patch APPLY 1 PATCH TO THE SKIN ONCE EVERY DAY (Patient not taking: Reported on 01/30/2024) omeprazole (PRILOSEC) 20 MG capsule Take 20 mg by mouth daily. potassium chloride SA (K-DUR) 20 MEQ controlled release tablet Take 40 mEq by mouth daily. terazosin (HYTRIN) 2 MG capsule Take 2 mg by mouth. vitamin C (ASCORBIC ACID) 500 MG tablet Take 500 mg by mouth daily. cephALEXin (KEFLEX) 500 MG capsule TAKE 1 CAPSULE BY MOUTH THREE TIMES DAILY FOR 7 DAYS (Patient not taking: Reported on 01/30/2024) escitalopram (LEXAPRO) 5 MG tablet Take 5 mg by mouth daily. (Patient not taking: Reported on 01/30/2024) daptomycin (CUBICIN) 500 MG injection 850 mg. (Patient not taking: Reported on 01/30/2024) furosemide (LASIX) 40 MG tablet Take 40 mg by mouth. (Patient not taking: Reported on 01/30/2024) furosemide (LASIX) 40 MG tablet TAKE 1 TABLET BY MOUTH TWICE DAILY AT 8 AM AND 4 PM (Patient not taking: Reported on 11/06/2023) sodium hypoclhorite (DAKINS) 0.125 % SOLN external solution Dakin's Solution 0.125 % sodium phosphate-dibasic sodium phosphate (fleets) 7-19 GM/118ML ENEM enema Fleet Enema Extra 19 gram-7 gram/197 mL Insert by rectal route. (Patient not taking: Reported on 01/30/2024) metolazone (ZAROXOLYN) 2.5 MG tablet metolazone 2.5 mg tablet Take 1 tablet 3 times a week by oral route. (Patient not taking: Reported on 01/30/2024) ondansetron (ZOFRAN-ODT) 4 MG disintegrating tablet ondansetron [address] 2 tablets twice a day by translingual route. oxyCODONE 5 MG immediate release tablet take 1 tablet by mouth every 8 hours if needed for pain (Patient not taking: Reported on 01/30/2024) oxyCODONE-acetaminophen (PERCOCET) 5-325 mg per tablet take 1 tablet by mouth every 6 hours if needed for pain FOR UP TO 7 DAYS (Patient not taking: Reported on 01/30/2024) oxyCODONE-acetaminophen (Percocet) 5-325 mg per tablet every 6 hours. (Patient not taking: Reported on 01/30/2024) pregabalin (LYRICA) 75 MG capsule Take 75 mg by mouth 3 times daily. (Patient not taking: Reported on 01/30/2024) insulin lispro, 1 Unit Dial, (HumaLOG KwikPen) 100 UNIT/ML SOPN injection Humalog KwikPen (U-100) Insulin 100 unit/mL subcutaneous Inject by subcutaneous route. insulin lispro, 1 Unit Dial, (HUMALOG KWIKPEN) 100 UNIT/ML SOPN injection B-D U/F PEN NEEDLE 31GX5/16 USE WITH INSULIN FIVE TIMES DAILY AND NEEDED isosorbide dinitrate (ISORDIL) 30 MG tablet isosorbide dinitrate 30 mg tablet Take 2 tablets twice a day by oral route. isosorbide mononitrate (IMDUR) 30 MG CR tablet (Patient not taking: Reported on 01/30/2024) methocarbamol (ROBAXIN) 500 MG tablet methocarbamol 500 mg tablet Take 2 tablets 4 times a day by oral route. cyproheptadine (PERIACTIN) 4 MG tablet (Patient not taking: Reported on 11/06/2023) doxycycline (VIBRAMYCIN) 100 MG capsule Take 100 mg by mouth daily. (Patient not taking: Reported on 01/30/2024) doxycycline (ADOXA) 100 MG tablet doxycycline monohydrate 100 mg tablet Take 1 tablet twice a day by oral route. (Patient not taking: Reported on 01/30/2024) OneTouch Verio strip TEST FIVE TIMES DAILY insulin glargine (Lantus SoloStar) 100 UNIT/ML SOPN injection Lantus Solostar U-100 Insulin 100 unit/mL (3 mL) subcutaneous pen Inject by subcutaneous route. Lantus SoloStar 100 UNIT/ML SOPN injection buPROPion ER (Wellbutrin XL) 300 MG XL tablet Wellbutrin XL 300 mg 24 hr tablet, extended release Take 1 tablet every day by oral route. (Patient not taking: Reported on 01/30/2024) buPROPion ER (WELLBUTRIN XL) 300 MG XL tablet TAKE 1 TABLET BY MOUTH EVERY DAY IN THE MORNING (Patient not taking: Reported on 01/30/2024) CARvedilol (COREG) 12.5 MG tablet carvedilol 12.5 mg tablet Take 2 tablets twice a day by oral route. citalopram (CeleXA) 20 MG tablet citalopram 20 mg tablet Take 1 tablet every day by oral route. citalopram (CeleXA) 20 MG tablet Take 20 mg by mouth daily. (Patient not taking: Reported on 11/06/2023) cyproheptadine (PERIACTIN) 4 MG tablet cyproheptadine 4 mg tablet Take 1 tablet 3 times a day by oral route. (Patient not taking: Reported on 01/30/2024) amoxicillin-clavulanate (AUGMENTIN) 875-125 MG per tablet take 1 tablet by mouth twice a day for 14 days (Patient not taking: Reported on 01/30/2024) aspirin 81 MG enteric coated tablet aspirin 81 mg tablet,delayed release Take 1 tablet every day by oral route. bisacodyl (Dulcolax) 10 MG suppository Dulcolax (bisacodyl) 10 mg rectal suppository Insert 1 suppository every day by rectal route. (Patient not taking: Reported on 01/30/2024) buPROPion ER (WELLBUTRIN XL) 150 MG XL tablet TAKE 1 TABLET BY MOUTH EVERY DAY IN THE MORNING (Patient not taking: Reported on 01/30/2024) zolpidem (Ambien) 10 MG tablet Take by mouth. (Patient not taking: Reported on 01/30/2024) chlorthalidone (HYGROTON) 25 MG tablet Take by mouth. (Patient not taking: Reported on 01/30/2024) tizanidine (ZANAFLEX) 2 MG tablet Take by mouth. (Patient not taking: Reported on 01/30/2024) valsartan (DIOVAN) 320 MG tablet TK 1 T PO QD (Patient not taking: Reported on 01/30/2024) tramadol (ULTRAM) 50 MG tablet 50 mg. (Patient not taking: Reported on 01/30/2024) trazodone (DESYREL) 50 mg tablet TK 1 T PO QPM CHANTIX STARTING MONTH CRISTA 0.5 MG X 11 & 1 MG X 42 tablet TK UTD (Patient not taking: Reported on 01/30/2024) Insulin Detemir 100 UNIT/ML SOPN insulin detemir Insulin Detemir U-100 Active 50 UNITS Subcutaneous Daily December 24, 2019 10:24am 12-24-2019 [facility] ([id number]) insulin regular human, CONC, (HUMULIN) 500 UNIT/ML SOPN injection pen Inject under the skin. metoprolol (LOPRESSOR) 50 MG tablet TK 1 T PO BID (Patient not taking: Reported on 01/30/2024) nicotine (NICODERM CQ) 14 mg/24HR patch Place 1 Patch on the skin. (Patient not taking: Reported on 01/30/2024) potassium chloride SA (K-DUR) 10 MEQ controlled release tablet Potassium Chloride Potassium Chloride Active 10 MEQ Oral Daily December 24, 2019 10:24am 12-24-2019 [facility] ([id number]) (Patient not taking: Reported on 01/30/2024) rOPINIRole (REQUIP) 0.5 MG tablet 1.5 mg. (Patient not taking: Reported on 01/30/2024) senna (SENOKOT) 8.6 MG TABS tablet sennosides, FDC Sennosides Active 2 TAB Oral DAILY@12 60 December 24, 2019 10:24am 12-24-2019 [facility] ([id number]) (Patient not taking: Reported on 01/30/2024) clopidogrel (PLAVIX) 75 MG tablet TK 1 T PO QD DOK 100 MG capsule TK 1 C PO QD (Patient not taking: Reported on 01/30/2024) Erenumab-aooe (AIMOVIG) 70 MG/ML SOAJ Inject into the muscle every 30 days. (Patient not taking: Reported on 01/30/2024) fludrocortisone (FLORINEF) 0.1 MG tablet TK 1 T PO BID (Patient not taking: Reported on 01/30/2024) Fluticasone-Salmeterol 55-14 MCG/ACT AEPB fluticasone / salmeterol Fluticasone Propion-Salmeterol Active 1 PUFF Inhalation Twice daily 60 December 24, 2019 10:24am 12-24-2019 [facility] ([id number]) (Patient not taking: Reported on 01/30/2024) hydrochlorothiazide (HYDRODIURIL) 25 MG tablet TK 1 T PO QD (Patient not taking: Reported on 01/30/2024) INSULIN ASPART SUBCUTANEOUS Insulin, Aspart, Human Insulin Aspart U-100 Active 0 UNITS Subcutaneous 3X/Day with meals and bedtime 10 December 24, 2019 10:24am 12-24-2019 [facility] ([id number]) albuterol (PROVENTIL) (2.5 MG/3ML) 0.083% nebulizer solution Albuterol Albuterol Sulfate Active 2.5 MG Inhalation Q4H 15 December 24, 2019 10:24am 12-24-2019 [facility] ([id number]) amLODIPine (NORVASC) 2.5 MG tablet TK 1 T PO QD (Patient not taking: Reported on 01/30/2024) atenolol (TENORMIN) 50 mg tablet Take 50 mg by mouth. (Patient not taking: Reported on 01/30/2024) atorvastatin (LIPITOR) 40 mg tablet (Patient not taking: Reported on 01/30/2024) bacitracin 500 UNIT/GM ointment Bacitracin Bacitracin Active 1 APPLIC Topical Daily December 24, 2019 5:24pm 12-24-2019 [facility] ([id number]) clindamycin (CLEOCIN) 300 MG capsule TK ONE C PO TID (Patient not taking: Reported on 01/30/2024) acetaminophen (TYLENOL) 500 MG tablet 500 mg. (Patient not taking: Reported on 01/30/2024) No current facility-administered medications for this visit. HEIGHT: 5' 6 WEIGHT: No prior weight on file BMI: 37.12 VITAL SIGNS: BP 182/90 Comment: manual at the end of visit Pulse 90 Temp 97.3 F (36.3 C) (Tympanic) Resp 18 Ht 1.676 m (5' 6 ) Wt 104.3 kg (230 lb) SpO2 99% BMI 37.12 kg/m PAIN ASSESSMENT: Severity: 4 Location: head AIRWAY EXAM: Mallampati score: 3 TMD: Adequate Neck Extension/ Flexion: Adequate Mouth Opening: Adequate Dentition: Teeth chipped Micrognathia/Overbite: No FUNCTIONAL CAPACITY: <4 mets, Uses a wheel chair, Uses a walker, and able to walk approximately 20 feet before feeling SOB PHYSICAL EXAM: Eyes: Deferred ENT: Mucosa normal, Neck supple, Carotids normal pulse without bruits, and Thyroid normal Pulmonary: Chest clear to auscultation bilaterally Cardiovascular: RRR with S1S2 and No murmurs, gallops, or rubsBLE +1 Abdomen: Soft and non-tender and Bowel sounds normal Extremities: No gross or obvious abnormalities Neurologic: Awake, alert, oriented and No motor deficits Psychiatric: alert and oriented to person, place and time, Appropriate mood/affect Skin: No gross or obvious abnormalities on visible skin Assessment and Plan: 1) Pre-Admission Evaluation 2) Pre-Op Diagnosis Codes: * Proliferative diabetic retinopathy of both eyes associated with type 2 diabetes mellitus, unspecified proliferative retinopathy type (HCC) [E11.3593] * Vitreous hemorrhage of left eye (HCC) [H43.12] 3) DM- controlled , A1c 12.8. Dr. Subramanian made aware 4) low functional capacity- cardiac clearance NOT obtained 5) HTN- instructed to hold losartan and bumex prior to surgery; BP NOT controlled, manual obtained at end of visit; patient to f/u with PCP 6) asthma- well controlled 7) NSTEMI/CAD/CHF- CARDIOLOGY WILL NOT CLEAR PATIENT UNTIL SEEN IN OFFICE, NEXT AVAILABLE VISIT IS IN FEBRUARY. DR. SUBRAMANIAN AWARE LABS, TESTS, CONSULTS ORDERED: Orders & Meds Signed During This Encounter FINGERSTICK/GLUCOSE Hemoglobin A1C Basic Metabolic Panel Glucose, Fingerstick-In Office atorvastatin (LIPITOR) 80 mg tablet bumetanide (BUMEX) 2 MG tablet rOPINIRole (REQUIP) 2 MG tablet EKG 12 LEAD - PERFORM EKG 12 LEAD - PERFORM LABORATORY DATA: Basic Metabolic Panel Na K Cl CO2 Gap Glu BUN Cr Ca 01/29/24 1534 141 4.4 107 24 14 176 40 2.22 8.0 CBC (last 3 years, up to 5 values) None Lab Results Component Value Date HBA1C 12.8 (H) 01/29/2024 TESTS REVIEWED: I personally reviewed and interpreting and findings were: CXRay: 06/03/2023 @[facility] IMPRESSION: * No radiographic evidence of acute cardiopulmonary process. EK01/29/2024 Normal sinus rhythm LVH with left ventricular strain Abnormal ECG Confirmed by KATHY PANCHAL ([id number]) on 01/30/2024 2:58:45 PM ECHO: 01/08/2023 @[facility] Left Ventricle: Systolic function is normal with an ejection fraction of 55-60%. Stress test date: Last StressTest: none found going back to 03/25/2015 Heart Cath 05/30/2023 @[facility] FINAL IMPRESSION 1. Moderate coronary artery disease, with diffuse disease noted within the left anterior descending coronary artery. There are no clear targets for revascularization 2. Severely elevated left ventricular end-diastolic pressure. RECOMMENDATIONS: 1. The patient will be treated with medical therapy 2. The patient will be given normal saline at a rate of 1.5 milliliter/kilogram per hour until 7:00 p.m. on May 31, 2023. This is to minimize the risk of contrast induced kidney injury as demonstrated in the POSEIDON trial. Coronary Findings Diagnostic Dominance: Left Left Main: This is a moderate-sized vessel. There is a 20% distal stenosis. Left Anterior Descending: This is a moderate-sized vessel which is noted to be diffusely disease throughout its length with up to 50% stenosis at greatest diameter stenosis estimated severity. Left Circumflex: This is a large, dominant vessel. There is a 30% proximal stenosis. Right Coronary Artery: This is a small, non dominant vessel which was visualized only with non selective angiography. Patient is not optimized for surgery; REAL ESTATE PHOTOGRAPHER WILL NOT CLEAR PATIENT UNTIL SEEN DR. SUBRAMANIAN MADE AWRE This note will be forwarded to the referring provider. Patient should follow up with referring provider. Patient has been directed to discuss specific recovery questions with his/her surgeon/proceduralist. Attestation: I have spent 44 total minutes. Visit activities: - preparing to see the patient (e.g., review of tests) - obtaining and/or reviewing separately obtained history - performing a medically appropriate examination and/or evaluation - counseling and educating the patient/family/caregiver - ordering medications, tests, or procedures - referring and communicating with other health medicare sales representative (when not separately reported) - documenting clinical information in the electronic or other health record Cardiology visit 06/27/2023 @[facility] IMPRESSIONS/PLAN [place] coronary artery atherosclerosis - [facility] 2020 in [facility] showed single vessel disease not amenable to PCI per pt. - [facility] 05/30/23 showed LAD disease with no targets for revascularization and severely elevated LVEDP Continue Isosorbide, Coreg, Amlodipine. Chronic HFpEF - preserved LV function per TTE 12/2022 Primary hypertension - borderline controlled DMII - A1c 14.5 uncontrolled Hyperlipidemia - on high-dose statin Tobacco use - smoking cessation Non-STEMI with troponin peak of 0.4 S/P RT BKA FOR DIABETIC FOOT. Continued Tobacco use: I asked the patient to quit smoking. Continue medication regimen as outlined above. TODAYS ORDERS No orders of the defined types were placed in this encounter. FOLLOW UP 6 months. PCP: DONITA TENORIO DO Interviewer signature: KIRSTEN Porras 9:47 AM 01/31/2024 documented in this encounter [facility] 01-29-2024 Evaluation note Patient was identified by name and date of . Cassandra Lujan Patient at risk for falls:Yes Falls Risk protocol implemented: Yes wheelchair in locked position when not in use for transport [facility] 01-29-2024 Miscellaneous Notes Patient was identified by name and date of . Cassandra Lujan Patient at risk for falls:Yes Falls Risk protocol implemented: Yes wheelchair in locked position when not in use for transport documented in this encounter [facility] 01-14-2024 Note Entered by MURRAY TENORIO DO on January 14, 2024 16:39:25 EDT From: DONITA TENORIO DO To: [facility] Sent: 01/14/2024 16:39:25 EDT Subject: Medication Management Documented Complete:terazosin (terazosin 2 mg oral capsule) Signed by DONITA TENORIO DO 01/14/2024 16:39:00 EDT Submitted: Complete:bumetanide (bumetanide 2 mg oral tablet) Signed by DONITA TENORIO DO 01/14/2024 16:39:00 EDT Submitted: Complete:potassium chloride (Potassium Chloride (Bpd-Qfni-Ugw M20) 20 mEq oral tablet, extended release) Signed by DONITA TENORIO DO 01/14/2024 16:39:00 EDT Submitted: Complete:tamsulosin (tamsulosin 0.4 mg oral capsule) Signed by DONITA TENORIO DO 01/14/2024 16:39:00 EDT Approved with modifications: bumetanide (Bumetanide 2MG TABS) TAKE 1 TABLET BY MOUTH TWICE A DAY BEFORE MEALS Qty: 56 tab(s) Days Supply: 28 Refills: 5 Substitutions Allowed Route To [facility] Note from Pharmacy: Maximum Refills Reached Approved with modifications: potassium chloride (Potassium Chloride Ria ER 20MEQ TBCR) TAKE 1 TABLET BY MOUTH EVERY MORNING Qty: 28 tab(s) Days Supply: 28 Refills: 5 Substitutions Allowed Route To [facility] Note from Pharmacy: Maximum Refills Reached Approved with modifications: tamsulosin (Tamsulosin HCl 0.4MG CAPS) TAKE 1 CAPSULE BY MOUTH AT BEDTIME Qty: 28 cap(s) Days Supply: 28 Refills: 5 Substitutions Allowed Route To Pharmacy [facility] [employer] [facility] Note from Pharmacy: Maximum Refills Reached Approved with modifications: terazosin (Terazosin HCl 2MG CAPS) TAKE 1 CAPSULE BY MOUTH DAILY Qty: 28 cap(s) Days Supply: 28 Refills: 5 Substitutions Allowed Route To Pharmacy [facility] Note from Pharmacy: Maximum Refills Reached From: [facility] - To: DONITA TENORIO DO Sent: January 14, 2024 3:28:31 PM CDT Subject: Medication Management Due: January 15, 2024 12:03:34 AM CDT On Hold Pending Signature Drug: bumetanide (bumetanide 2 mg oral tablet), TAKE 1 TABLET BY MOUTH TWICE A DAY BEFORE MEALS Quantity: 56 tab(s) Days Supply: 28 Refills: 2 Substitutions Allowed Notes from Pharmacy: Maximum Refills Reached Dispensed Drug: bumetanide (bumetanide 2 mg oral tablet), TAKE 1 TABLET BY MOUTH TWICE A DAY BEFORE MEALS Quantity: 56 tab(s) Days Supply: 28 Refills: 0 Substitutions Allowed Notes from Pharmacy: Maximum Refills Reached On Hold Pending Signature Drug: potassium chloride (Potassium Chloride (Dmd-Yhyq-Kek M20) 20 mEq oral tablet, extended release), TAKE 1 TABLET BY MOUTH EVERY MORNING Quantity: 28 tab(s) Days Supply: 28 Refills: 2 Substitutions Allowed Notes from Pharmacy: Maximum Refills Reached Dispensed Drug: potassium chloride (Potassium Chloride (Duc-Lfei-Dcu M20) 20 mEq oral tablet, extended release), TAKE 1 TABLET BY MOUTH EVERY MORNING Quantity: 28 tab(s) Days Supply: 28 Refills: 0 Substitutions Allowed Notes from Pharmacy: Maximum Refills Reached On Hold Pending Signature Drug: tamsulosin (tamsulosin 0.4 mg oral capsule), TAKE 1 CAPSULE BY MOUTH AT BEDTIME Quantity: 28 cap(s) Days Supply: 28 Refills: 2 Substitutions Allowed Notes from Pharmacy: Maximum Refills Reached Dispensed Drug: tamsulosin (tamsulosin 0.4 mg oral capsule), TAKE 1 CAPSULE BY MOUTH AT BEDTIME Quantity: 28 cap(s) Days Supply: 28 Refills: 0 Substitutions Allowed Notes from Pharmacy: Maximum Refills Reached On Hold Pending Signature Drug: terazosin (terazosin 2 mg oral capsule), TAKE 1 CAPSULE BY MOUTH DAILY Quantity: 28 cap(s) Days Supply: 28 Refills: 11 Substitutions Allowed Notes from Pharmacy: Maximum Refills Reached Dispensed Drug: terazosin (terazosin 2 mg oral capsule), TAKE 1 CAPSULE BY MOUTH DAILY Quantity: 28 cap(s) Days Supply: 28 Refills: 0 Substitutions Allowed Notes from Pharmacy: Maximum Refills Reached [facility] 01-09-2024 Miscellaneous Notes ATTEMPTED TO PHONE PT TO REMIND OF APPT SCHEDULED FOR 01/10/2024, PHONE RINGS AND THEN GOES BUSY, documented in this encounter [facility] 01-09-2024 Telephone encounter Note ATTEMPTED TO PHONE PT TO REMIND OF APPT SCHEDULED FOR 01/10/2024, PHONE RINGS AND THEN GOES BUSY, [facility] 12-13-2023 Miscellaneous Notes Telephone call to patient to schedule appt. No answer and no voicemail. ----- Message ----- From: Jaylen Astudillo MD Sent: 12/12/2023 6:06 PM EDT I received a copy of a message from the patient's PCP today, regarding elevated blood pressure in the office. It is a telephone encounter with the date of December 12, 2023 from Yue Amador CNP. It is in regards to elevated blood pressure. I have never seen this patient in the office. I suspect he will need to be seen in the office. This can be with any provider. documented in this encounter [facility] 12-13-2023 Telephone encounter Note Telephone call to patient to schedule appt. No answer and no voicemail. [facility] 12-13-2023 Telephone encounter Note ----- Message ----- From: Jaylen Astudillo MD Sent: 12/12/2023 6:06 PM EDT I received a copy of a message from the patient's PCP today, regarding elevated blood pressure in the office. It is a telephone encounter with the date of December 12, 2023 from Yue Amador CNP. It is in regards to elevated blood pressure. I have never seen this patient in the office. I suspect he will need to be seen in the office. This can be with any provider. [facility] 12-12-2023 Miscellaneous Notes I have placed referral for endocrinology if patient does not already follow with someone for his DM. Please also notify cardiology office regarding uncontrolled HTN in office today. Patient reportedly asymptomatic. I have sent this information to our scheduling staff, to allow the patient to be scheduled for an appointment in our office. documented in this encounter [facility] 12-12-2023 Telephone encounter Note I have placed referral for endocrinology if patient does not already follow with someone for his DM. Please also notify cardiology office regarding uncontrolled HTN in office today. Patient reportedly asymptomatic. [facility] [employer] 12-12-2023 Telephone encounter Note I have sent this information to our scheduling staff, to allow the patient to be scheduled for an appointment in our office. [employer] Phone: 12-12-2023 History of Present illness Narrative [facility] Discharge Follow Up CHIEF COMPLAINT: Chief Complaint Patient presents with Follow-up Pt states he is here for a hospital follow up. Pt reports things are not going good. Pt states he can go 5-6 days without bowel movement, longest was 9 days. Pt reports then when he does go he has incontinence. Pt states he has some abdominal bloating. Pt reports vomiting that is brown and smelly gas. HISTORY OF PRESENT ILLNESS: Chandler Minor is a 53 y.o. male who has a past medical history of CKD, osteomyelitis, arthritis, asthma, CAD, cellulitis, CHF, DM2, HTN, hypothyroidism, JEIMY, NSTEMI, on Plavix, PRAVEENA on CPAP, Parkinson's disease, sarcoidosis, seizures, stroke, and s/p right BKA who presents today for He was admitted to [facility] in May 2023 for NSTEMI. GI was consulted for management of nausea/vomiting. Xray showed ileus vs obstruction. General surgery was consulted. NG tube was placed for decompression. He underwent EGD with Dr. Reyes 05/2023 that revealed a small esophageal superficial, linear ulcer with no bleeding, likely from NG tube trauma, retained gastric fluid and debris, possibly from dissolved pills, and erythematous mucosa in the anterior wall of the stomach consistent with retching. Today he reports intermittent postprandial epigastric pain and belching. He is taking Pantoprazole 40 mg daily. He reportedly has heartburn all the time . He has nausea with occasional vomiting. He reports brown emesis that smells like poop at times. No hematemesis. He also has intermittent lower abdominal pain. He continues to struggle with constipation. He is moving his bowels every 5-6 days then will have diarrhea. He does have occasional hard stools with straining. He has no hematochezia or melena. He has tried MiraLax without relief. He is passing gas. Appetite is poor. No weight loss. He reportedly does not follow with nephrology. Hemoglobin A1C was 14% in May 2023. BP is elevated today. He follows with [facility] cardiology. Prior Endoscopic Evaluation: EGD 05/[address] Reyes: Endoscopic Evaluation: Findings: One linear and superficial esophageal ulcer with no bleeding and no stigmata of recent bleeding was found in the upper third of the esophagus. The lesion was 3 mm in largest dimension. Likely from NG tube trauma. The Z-line was regular and was found 43 cm from the incisors. Retained fluid was found in the gastric fundus. Localized moderately erythematous mucosa without bleeding was found on the anterior wall of the stomach consistent with retching. The gastric antrum was normal. The duodenal bulb, first portion of the duodenum and second portion of the duodenum were normal. Past Medical History: Diagnosis Date Abnormal ankle brachial index (CLINT) 10/04/2020 Added automatically from request for surgery [id number] Acute kidney injury superimposed on CKD ([facility]) 05/26/2023 Acute osteomyelitis of foot ([facility]) 01/02/2021 Anesthesia complication pt had seizure coming out of anesthesia approx 01/2019 Arthritis Asthma CAD (coronary artery disease) 05/29/2023 Cellulitis of perineum 12/07/2018 Cellulitis of right lower extremity 10/04/2020 Cellulitis of right lower limb 01/05/2021 Chest pain Chronic diastolic congestive heart failure ([facility]) 01/16/2023 Chronic kidney disease Current smoker 10/13/2020 Added secondary to documentation in Social History. Diabetes mellitus ([facility]) type 2 Diabetes mellitus type 2, controlled ([facility]) Diabetes mellitus with insulin therapy ([facility]) 01/25/2020 Draining postoperative wound 06/14/2021 Elevated troponin 01/19/2023 Essential hypertension 12/23/2015 Hypertension Hypertensive emergency 01/15/2023 Hypothyroidism 01/16/2023 Iron deficiency anemia 01/20/2023 Nausea and vomiting 05/27/2023 Nicotine dependence, unspecified, uncomplicated 01/02/2021 Non-healing non-surgical wound 02/16/2022 Nonhealing surgical wound, initial encounter 01/03/2021 NSTEMI (non-ST elevated myocardial infarction) ([facility]) 05/25/2023 PRAVEENA on CPAP Osteomyelitis ([facility]) Other abnormalities of gait and mobility 01/26/2021 Parkinson's disease Prsnl hx of TIA (TIA), and cereb infrc w/o resid deficits 01/05/2021 Sarcoidosis Sarcoidosis of lung ([facility]) 12/23/2015 Scoliosis Seizures ([facility]) history of, had seizure after coming out of anesthesia when he had a cyst removed scalp, 01/2019 Shortness of breath 12/23/2015 Stage 3b chronic kidney disease ([facility]) 01/19/2023 Status post amputation of right foot through metatarsal bone ([facility]) 01/03/2021 Status post below knee amputation, right ([facility]) 07/21/2021 Stroke ([facility]) Toe infection Type 2 diabetes mellitus with kidney complication, with long-term current use of insulin ([facility]) 01/16/2023 Uncontrolled type 2 diabetes mellitus with hyperglycemia ([facility]) 04/23/2021 Unstable angina ([facility]) 05/28/2023 Vascular occlusion 12/28/2020 Visual impairment wears glasses PREVIOUS ENDOSCOPY OR X-RAY PROCEDURES: As noted in the HPI Past Surgical History: Past Surgical History: Procedure Laterality Date AMPUTATION BELOW KNEE CLOSURE Right 01/10/2021 Performed by Odell Roche MD at [facility] AMPUTATION BELOW KNEE RT GUILLOTINE STYLE Right 01/05/2021 Performed by Odell Roche MD at [facility] AMPUTATION REVISION BELOW KNEE Right 07/21/2021 Performed by Odell Roche MD at [facility] Aortography abdominal N/A 10/06/2020 Performed by Odell Roche MD at [facility] Coronary angiogram and left ventricular gram/pressure N/A 05/30/2023 Performed by Jaylen Astudillo MD at [facility] DEBRIDEMENT RIGHT BKA Right 04/25/2021 Performed by Odell Roche MD at [facility] EGD N/A 06/03/2023 Performed by Kvng Reyes MD at [facility] RELEASE CARPAL TUNNEL Left 09/02/2019 Performed by Nehemiah Pace DO at [facility] RELEASE CARPAL TUNNEL Right 08/12/2019 Performed by Nehemiah Pace DO at [facility] Right SFA leg angio Right 10/06/2020 Performed by Odell Roche MD at [facility] SKIN SURGERY cyst removed from scalp TOE AMPUTATION all right 5 toes Current Medications: Current Outpatient Medications: acetaminophen (TYLENOL ARTHRITIS) 650 mg 8 hr tablet, Take 3 tablets (1,950 mg total) by mouth in the morning and 3 tablets (1,950 mg total) before bedtime., Disp: , Rfl: amLODIPine (NORVASC) 10 mg tablet, Take 1 tablet (10 mg total) by mouth in the morning., Disp: 30 tablet, Rfl: 0 ascorbic acid (VITAMIN C) 500 mg tablet, Take 1 tablet (500 mg total) by mouth in the morning., Disp: , Rfl: aspirin 81 mg, Take 1 tablet (81 mg total) by mouth daily., Disp: 30 tablet, Rfl: 5 atorvastatin (LIPITOR) 40 mg tablet, Take 2 tablets (80 mg total) by mouth nightly., Disp: 30 tablet, Rfl: 0 bumetanide (BUMEX) 2 mg tablet, Take 1 tablet (2 mg total) by mouth 2 (two) times a day before meals., Disp: 60 tablet, Rfl: 2 carvediloL (COREG) 25 mg tablet, Take 1 tablet (25 mg total) by mouth in the morning and 1 tablet (25 mg total) in the evening. Take with meals., Disp: 60 tablet, Rfl: 0 cholecalciferol, vitamin D3, 50,000 units tablet, Take 1 tablet (50,000 Units total) by mouth once a week., Disp: , Rfl: citalopram (CeleXA) 20 mg tablet, Take 1 tablet (20 mg total) by mouth in the morning., Disp: , Rfl: clopidogreL (PLAVIX) 75 mg tablet, Take 1 tablet (75 mg total) by mouth daily., Disp: 21 tablet, Rfl: 0 diphenhydrAMINE-acetaminophen (TYLENOL PM) 25-500 mg tablet, Take 2 tablets by mouth nightly., Disp: , Rfl: docusate sodium (COLACE) 100 mg capsule, Take 1 capsule (100 mg total) by mouth in the morning and 1 capsule (100 mg total) before bedtime., Disp: , Rfl: empagliflozin (JARDIANCE) 10 mg tablet tablet, Take 1 tablet (10 mg total) by mouth in the morning., Disp: , Rfl: fluticasone propionate (FLONASE) 50 mcg/actuation nasal spray, Administer 2 sprays into each nostril in the morning., Disp: 16 g, Rfl: 12 hydrALAZINE (APRESOLINE) 100 mg tablet, Take 1 tablet (100 mg total) by mouth every 8 (eight) hours., Disp: 90 tablet, Rfl: 2 insulin detemir U-100 (LEVEMIR FLEXPEN) 100 unit/mL (3 mL) insulin pen, Inject 42 Units under the skin in the morning and 42 Units before bedtime., Disp: , Rfl: insulin lispro (HumaLOG) 100 unit/mL insulin pen, Inject 3-18 Units under the skin 4 (four) times a day with meals and nightly. (Patient taking differently: Inject 10-25 Units under the skin in the morning and 10-25 Units at noon and 10-25 Units in the evening. Inject with meals. Inject 10-15-20-25 units before meals according to meal size.), Disp: 15 mL, Rfl: 12 insulin lispro (HumaLOG) 100 unit/mL insulin pen, Inject 2-8 Units under the skin nightly., Disp: 15 mL, Rfl: 12 isosorbide mononitrate (IMDUR) 60 mg 24 hr tablet, Take 1 tablet (60 mg total) by mouth daily., Disp: , Rfl: levothyroxine (SYNTHROID, LEVOTHROID) 25 MCG tablet, Take 1 tablet (25 mcg total) by mouth in the morning., Disp: , Rfl: liraglutide (VICTOZA 3-CRISTA) 0.6 mg/0.1 mL (18 mg/3 mL) pen injector, Inject 0.3 mL (1.8 mg total) under the skin in the morning., Disp: , Rfl: losartan (COZAAR) 50 mg tablet, , Disp: , Rfl: nitroglycerin (NITRODUR) 0.1 mg/hr, Place 1 patch on the skin daily., Disp: , Rfl: nitroglycerin (NITROSTAT) 0.4 MG SL tablet, Place 1 tablet (0.4 mg total) under the tongue every 5 (five) minutes as needed for chest pain., Disp: 90 tablet, Rfl: 5 omeprazole (PriLOSEC) 20 mg capsule, , Disp: , Rfl: pantoprazole (PROTONIX) 40 mg EC tablet, Take 1 tablet (40 mg total) by mouth every morning before breakfast., Disp: 30 tablet, Rfl: 2 polyethylene glycol (GLYCOLAX) 17 gram packet, Take 17 g by mouth in the morning., Disp: 30 packet, Rfl: 2 potassium chloride (KLOR-CON M 20) 20 MEQ CR tablet, Take 1 tablet (20 mEq total) by mouth in the morning., Disp: 30 tablet, Rfl: 2 roflumilast (DALIRESP) 500 mcg tablet, Take 1 tablet (500 mcg total) by mouth in the morning., Disp: 30 tablet, Rfl: 0 rOPINIRole (REQUIP) 2 mg tablet, Take 1 tablet (2 mg total) by mouth 3 (three) times a day., Disp: , Rfl: sennosides-docusate sodium (SENOKOT-S) 8.6-50 mg, Take 1 tablet by mouth in the morning., Disp: 30 tablet, Rfl: 0 tamsulosin (FLOMAX) 0.4 mg capsule, Take 1 capsule (0.4 mg total) by mouth nightly., Disp: 30 capsule, Rfl: 2 terazosin (HYTRIN) 2 mg capsule, Take 1 capsule (2 mg total) by mouth daily., Disp: 30 capsule, Rfl: 0 traZODone (DESYREL) 50 mg tablet, Take 1 tablet (50 mg total) by mouth nightly., Disp: , Rfl: I reviewed and reconciled this patient's medication list today. The list included in this note is the most up to date list that I can attest to at this time based on the information that the patient has provided me and the electronic medical record. ALLERGIES: Promethazine SOCIAL HISTORY: Social History Tobacco Use Smoking status: Every Day Packs/day: 1.00 Years: 11.00 Additional pack years: 0.00 Total pack years: 11.00 Types: Cigarettes Smokeless tobacco: Never Vaping Use Vaping Use: Never used Substance Use Topics Alcohol use: No Alcohol/week: 0.0 standard drinks of alcohol Drug use: No FAMILY HISTORY: Family History Problem Relation Age of Onset Diabetes Mother Epilepsy Mother Hypertension Mother Diabetes Father Stroke Father Heart disease Father Hypertension Father ASSESSMENTS: REVIEW OF SYSTEMS: See HPI, otherwise ROS as below CONSTITUTIONAL: No significant weight change, fatigue, fever, or chills HEENT: No eye pain, difficulty swallowing, or painful swallowing RESPIRATORY: No coughing, shortness of breath, or wheezing CARDIOVASCULAR: No chest pain, palpitations, dyspnea on exertion, or edema GASTROINTESTINAL: No abdominal pain, nausea/vomiting, change in bowel habits, or blood in stools GENITOURINARY: No dysuria or hematuria INTEGUMENT/BREAST: No skin rashes or skin lesions HEMATOLOGIC/LYMPHATIC: No anemia or easy bruising ALLERGIC/IMMUNOLOGIC: No seasonal allergies, itching, or hay fever ENDOCRINE: No heat/cold intolerance, no diabetes MUSCULOSKELETAL: No joint/muscle pain or arthritis NEUROLOGICAL: No headache or seizures BEHAVIOR/PSYCH: No anxiety or depression PHYSICAL EXAM: Vitals: 12/12/23 1250 BP: (!) 182/92 Pulse: 82 Weight: 108 kg (238 lb) Height: 167.6 cm (5' 6 ) Body mass index is 38.41 kg/m . CONSTITUTIONAL: Alert, well developed and well-nourished. No apparent distress. Family present HEAD: Normocephalic, atraumatic EYES: Pupils equal, round and reactive to light; conjunctiva pink; no scleral icterus. ENT: Oral pharynx with moist mucus membranes. LUNGS: No increased work of breathing CARDIOVASCULAR: no edema ABDOMEN: Soft, non-distended and generalized tenderness. SKIN: Warm and dry. No bruising or bleeding, no rashes and no jaundice. MS: ambulates with difficulty, limited range of motion, s/p right BKA, resting in wheelchair NEURO: Oriented to person, place, and time. No focal deficits. PSYCH: Normal mood and affect. Behavior is normal. Depression Screening DATA: CBC: Lab Results Component Value Date WBC 7.2 06/06/2023 HGB 9.5 (L) 06/06/2023 HCT 29.0 (L) 06/06/2023 MCV 91 06/06/2023 RDW 14.3 06/06/2023 PLT 225 06/06/2023 CMP: Lab Results Component Value Date K 4.5 06/06/2023 CL 104 06/06/2023 CO2 26 06/06/2023 BUN 36 (H) 06/06/2023 GLU 271 (H) 06/06/2023 IMAGING: Reviewed imaging. ASSESSMENT AND PLAN: Chandler Minor is a 53 y.o. male with a past medical history of CKD, osteomyelitis, arthritis, asthma, CAD, cellulitis, CHF, DM2, HTN, hypothyroidism, JEIMY, NSTEMI, on Plavix, PRAVEENA on CPAP, Parkinson's disease, sarcoidosis, seizures, stroke, and s/p right BKA who presents today for He was admitted to [facility] in May 2023 for NSTEMI. GI was consulted for management of nausea/vomiting. Xray showed ileus vs obstruction. General surgery was consulted. NG tube was placed for decompression. He underwent EGD with Dr. Reyes 05/2023 that revealed a small esophageal superficial, linear ulcer with no bleeding, likely from NG tube trauma, retained gastric fluid and debris, possibly from dissolved pills, and erythematous mucosa in the anterior wall of the stomach consistent with retching. Today he has persistent complaints of abdominal pain and constipation. No blood in the stool or weight loss. Will check abdominal xray today to evaluate for ileus vs obstruction. If consistent with constipation, will plan bowel purge and daily bowel regimen, likely Linzess. Patient tried MiraLax without improvement. If no improvement consider CT scan. I have placed referral to nephrology today for CKD. If patient does not follow with endocrinology, would benefit from referral. A1C was 14%. Likely has gastroparesis, will check SPGES. Of note, BP elevated. Patient reportedly asymptomatic. Will notify sap abap developer. Diagnoses and all orders for this visit: Chronic idiopathic constipation - KUB Nausea and vomiting, unspecified vomiting type - X-ray abdomen complete decubitus erect; Future - SPGES Generalized abdominal pain - X-ray abdomen complete decubitus erect; Future - SPGES Stage 3 chronic kidney disease, unspecified whether stage 3a or 3b CKD ([facility]) - Ambulatory referral to Nephrology; Future Uncontrolled type 2 diabetes mellitus with hyperglycemia ([facility]) - [facility] - [place], [place]; Future Follow up in 3 months or sooner if needed pending above. Yue Amador APRN-[facility] [address], [address] [place] [address] PH: [phone] SR/MB Total time spent: 45 minutes Preparing to see the patient (e.g., review of tests) Obtaining and/or reviewing separately obtained history Performing a medically appropriate examination and/or evaluation Counseling and educating the patient/family/caregiver Ordering medications, tests, or procedures KIRSTEN Sosa 12/12/23 1614 documented in this encounter [facility] 12-05-2023 Miscellaneous Notes Patient called for follow-up OV after hospital D/C for ileus nausea vomiting. Currently having constant abdominal pain and needs to discuss solid phase gastric emptying study OV set for 12/09/23 documented in this encounter [facility] 12-05-2023 Telephone encounter Note Patient called for follow-up OV after hospital D/C for ileus nausea vomiting. Currently having constant abdominal pain and needs to discuss solid phase gastric emptying study OV set for 12/09/23 [facility] 10-17-2023 Note Entered by MURRAY TENORIO DO on October 17, 2023 16:37:15 EST From: DONITA TENORIO DO To: [facility] Sent: 10/17/2023 16:37:15 EST Subject: Medication Management Submitted: Complete:tamsulosin (tamsulosin 0.4 mg oral capsule) Signed by DONITA TENORIO DO 10/17/2023 16:37:00 EST Submitted: Complete:bumetanide (bumetanide 2 mg oral tablet) Signed by DONITA TENORIO DO 10/17/2023 16:37:00 EST Submitted: Complete:potassium chloride (Potassium Chloride (Zei-Sjsi-Iqv M20) 20 mEq oral tablet, extended release) Signed by DONITA TENORIO DO 10/17/2023 16:37:00 EST Approved with modifications: bumetanide (Bumetanide 2MG TABS) TAKE 1 TABLET BY MOUTH TWICE A DAY BEFORE MEALS Qty: 56 tab(s) Days Supply: 28 Refills: 2 Substitutions Allowed Route To [facility] Note from Pharmacy: Maximum Refills Reached Approved with modifications: potassium chloride (Potassium Chloride Ria ER 20MEQ TBCR) TAKE 1 TABLET BY MOUTH EVERY MORNING Qty: 28 tab(s) Days Supply: 28 Refills: 2 Substitutions Allowed Route To [facility] Note from Pharmacy: Maximum Refills Reached Approved with modifications: tamsulosin (Tamsulosin HCl 0.4MG CAPS) TAKE 1 CAPSULE BY MOUTH AT BEDTIME Qty: 28 cap(s) Days Supply: 28 Refills: 2 Substitutions Allowed Route To [facility] Note from Pharmacy: Maximum Refills Reached From: [facility] - To: DONITA TENORIO DO Sent: October 17, 2023 3:05:41 PM TRUCK DISPATCHER Subject: Medication Management Due: October 18, 2023 12:03:12 AM TRUCK DISPATCHER On Hold Pending Signature Drug: bumetanide (bumetanide [...] Pending Signature Drug: potassium chloride (Potassium Chloride (Zox-Qdsb-Ies M20) 20 mEq oral tablet, extended release), TAKE 1 TABLET BY MOUTH EVERY MORNING Quantity: 28 tab(s) Days Supply: 28 Refills: 0 Substitutions Allowed Notes from Pharmacy: Maximum Refills Reached-- this med was precribed during hospital stay, please send refill if appropriate Dispensed Drug: potassium chloride (Potassium Chloride (Qpt-Tqbz-Haq M20) 20 mEq oral tablet, extended release), [...] site. Sep, Muscle spasm (ICD-10 - M62.838) Yottaa Other 11-29-2023 History of Present illness Narrative* Demetri Subramanian MD - 09/11/2023 4:16 PM EST Longstanding [...] OU OCT mac OU documented in this [id number] NoteEntered by DONITA TENORIO DO on August 28, 2023 09:11:44 EST From: DONITA TENORIO DO To: [facility] Sent: 08/28/2023 09:11:44 EST Subject: Medication Management Documented Complete:potassium chloride (Potassium Chloride (Eyi-Vwti-Fme M20) 20 mEq oral tablet, extended release) Signed by DONITA TENORIO DO 08/28/2023 09:11:00 EST Documented Complete:bumetanide (bumetanide 1 mg oral tablet) Signed by DONITA TENORIO DO 08/28/2023 09:11:00 EST Documented Complete:tamsulosin (tamsulosin 0.4 mg oral capsule) Signed by DONITA TENORIO DO 08/28/2023 09:11:00 EST Approved tamsulosin (Tamsulosin HCl 0.4MG CAPS) TAKE 1 CAPSULE BY MOUTH AT BEDTIME Qty: 28 cap(s) Days Supply: 28 Refills: 0 Substitutions Allowed Route To [facility] Note from Pharmacy: Maximum Refills Reached-this med was prescribed after a recent hospital stay, please send new rx if patient is to continue taking this medication- Thank you Approved bumetanide (Bumetanide 2MG TABS) TAKE 1 TABLET BY MOUTH TWICE A DAY BEFORE MEALS Qty: 56 tab(s) Days Supply: 28 Refills: 0 Substitutions Allowed Route To [facility] Note from Pharmacy: Maximum Refills Reached- this dose was given after hospital stay, please send refill if appropriate Approved potassium chloride (Potassium Chloride Ria ER 20MEQ TBCR) TAKE 1 TABLET BY MOUTH EVERY MORNING Qty: 28 tab(s) Days Supply: 28 Refills: 0 Substitutions Allowed Route To [facility] Note from Pharmacy: Maximum Refills Reached-- this med was precribed during hospital stay, please send refill if appropriate Patient matched by DONITA TENORIO DO on 08/28/2023 09:11:04 EST From: [facility] - To: DONITA TENORIO DO Sent: August 28, 2023 7:51:26 AM TRUCK DISPATCHER Subject: Medication Management Due: August 29, 2023 12:10:43 AM TRUCK DISPATCHER On Hold Pending Signature Drug: tamsulosin (tamsulosin [...] Pending Signature Drug: potassium chloride (Potassium Chloride (Ajk-Ghph-Nvx M20) 20 mEq oral tablet, extended release), TAKE 1 TABLET BY MOUTH EVERY MORNING Quantity: 28 tab(s) Days Supply: 28 Refills: 0 Substitutions Allowed Notes from Pharmacy: Maximum Refills Reached- rx sent upon discharge from recent hospital stay, please send refill if appropriate Dispensed Drug: potassium chloride (Potassium Chloride (Uyz-Vwal-Txg M20) 20 mEq oral tablet, extended release), TAKE 1 TABLET BY MOUTH EVERY MORNING Quantity: 28 tab(s) Days Supply: 28 Refills: 0 Substitutions Allowed Notes from Pharmacy: Maximum Refills Reached-- this med was precribed during hospital stay, please send refill if appropriate [id number] Discharge summary Author Harjeet Ruelas [facility] August 03, 2023 1:06pm Note Date/Time August 03, 2023 1 0:59am [facility] [place] [address] Discharge Summary Signed Patient: Chandler Minor MR#: [id number] : 1970 Acct: [id number] Age/Sex: 53 / M Date of Service: 08/02/23 Loc: [facility] 4828-[address]: Harjeet Ruelas M.D. cc: None,Doctor D.OCirilo; Harjeet Ruelas M.D.~ Physician/MADELINE Physician/MADELINE Date of service: 08/03/23 Date of hospitalization: 08/02/23 04:45 Primary Care Physician/MADELINE: Doctor Oliveros, DO Admitting Physician/MADELINE: Helen Jovel MD Discharging Physician/MADELINE: Harjeet Ruelas MD Diagnosis Discharge Diagnosis (1) [...] units. Patient reports that he came to [place] to see his mom. Patient reports chronic [...] or Physician's Assistantworking with me, had a Yfwy-yw-Cqjs encounter. Based on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 (ICD-10 - E11.65) [facility] Other 08-03-2022 Evaluation note* Encounter Date Diagnosis [...] would need stopped. Pt agreeable to starting yvtxsrdhk48rc once daily 3. Patient is alert, oriented [...] (hypertension) (ICD-10 - I10) on arb May, custodial current use of insulin (ICD-10 - Z79.4) May, BMI 36.0-36.9,adult (ICD-10 - Z68.36) May, Hypoglycemia associated with type 2 diabetes mellitus (ICD-10 - E11.649) [facility] Other [id number] NoteRight Eye Quality was good. Progression has worsened. Findings include intraretinal fluid, subretinal fluid, abnormal foveal contour. Left Eye Quality was good. Progression has worsened. Findings include intraretinal fluid, subretinal fluid, abnormal foveal contour.[id number] History of Present illness Narrative* Demetri Subramanian MD - 03/21/2022 3:46 PM EDT Lost [...] to ED if symptoms recur precert eylea [id number] today F/u 4-6 weeks shahla/vivian Dilate ou Oct ou Color photos ou documented in this [id number] Telephone encounter Note* Telephone Encounter - Agustin Munguia MD - 03/19/2022 9:20 AM EDT Already has appt this 03/21 Confirmed appt with family [employer] Work Phone: 1([phone]) 519-661706-06-2022 Miscellaneous Notes* Telephone Encounter - Agustin Munguia MD - 03/19/2022 9:20 AM EDT Already has appt this 03/21 Confirmed appt with family * Telephone Encounter - Rita Gonzalez - 03/19/2022 8:05 AM EDT Pt's family called back in regarding this issue. They are very frustrated because they never received a call from anyone with an appt date/time. They request a call at [phone] to proceed. She states she will call back in tomorrow should she not hear back. Thank you. * Telephone Encounter - Ebonie Huizar - 03/07/2022 10:43 AM EDT Family calling in on behalf of pt - regarding above mssgs. Asking to be rescheduled for sooner appt when possible. Best contact # [phone] Thank you! * Telephone Encounter - Rita [...] he cannot see. Please contact pt at [phone] to discuss/advise. Thank you. documented in this [id number] Miscellaneous Notes* Telephone Encounter - Rita Gonzalez - 03/19/2022 8:05 AM EDT Pt's family called back in regarding this issue. They are very frustrated because they never received a call from anyone with an appt date/time. They request a call at [phone] to proceed. She states she will call back in tomorrow should she not hear back. Thank you. * Telephone Encounter - Ebonie Huizar - 03/07/2022 10:43 AM EDT Family calling in on behalf of pt - regarding above mssgs. Asking to be rescheduled for sooner appt when possible. Best contact # [phone] Thank you! * Telephone Encounter - Rita [...] he cannot see. Please contact pt at [phone] to discuss/advise. Thank you. documented in this [id number] Telephone encounter Note* Telephone Encounter - Rita Gonzalez - 03/19/2022 8:05 AM EDT Pt's family called back in regarding this issue. They are very frustrated because they never received a call from anyone with an appt date/time. They request a call at [phone] to proceed. She states she will call back in tomorrow should she not hear back. Thank you. [id number] Evaluation note* Encounter Date Diagnosis Assessment Notes Treatment Notes Treatment Clinical Notes February, Other Summary of Visi t: (A) reviewed which foods have carbs and which are low carb (B) basic carb counting (C) treatment of hypoglycemia Patient set the following goals: - practice carb counting and dosing insulin accurately [facility] Other 05-25-2022 Evaluation note* Encounter Date Diagnosis Assessment Notes Treatment Notes Treatment Clinical Notes February, Type 2 diabetes mellitus with hyperglycemia (ICD-10 - E11.65) [facility] Other 05-25-2022 Telephone encounter Note* Telephone Encounter - Ebonie Huizar - 03/07/2022 10:43 AM EDT Family calling in on behalf of pt - regarding above mssgs. Asking to be rescheduled for sooner appt when possible. Best contact # [phone] Thank you! [id number] Miscellaneous Notes* Telephone Encounter - Ebonie Huizar - 03/07/2022 10:43 AM EDT Family calling in on behalf of pt - regarding above mssgs. Asking to be rescheduled when possible. Best contact # [phone] Thank you! * Telephone Encounter - Rita [...] he cannot see. Please contact pt at [phone] to discuss/advise. Thank you. documented in this [id number] Miscellaneous Notes* Telephone Encounter - Ebonie Huizar - 03/07/2022 10:43 AM EDT Family calling in on behalf of pt - regarding above mssgs. Asking to be rescheduled for sooner appt when possible. Best contact # [phone] Thank you! * Telephone Encounter - Rita [...] he cannot see. Please contact pt at [phone] to discuss/advise. Thank you. documented in this [id number] Evaluation note* Encounter Date Diagnosis Assessment Notes Treatment Notes Treatment Clinical Notes February, Type 2 diabetes mellitus with hyperglycemia (ICD-10 - E11.65) [facility] Other [id number] Telephone encounter Note* Telephone Encounter - Rita [...] he cannot see. Please contact pt at [phone] to discuss/advise. Thank you. [id number] Miscellaneous Notes* Telephone Encounter - Rita Gonzalez [...] he cannot see. Please contact pt at [phone] to discuss/advise. Thank you. documented in this [id number] Evaluation note* Encounter Date Diagnosis Assessment Notes [...] to reduce levemir to 40 units bid. 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 [facility] Other 04-11-2022 Evaluation note* Encounter Date Diagnosis Assessment Notes Treatment Notes Treatment Clinical Notes Jan, Type 2 diabetes mellitus with hyperglycemia (ICD-10 - E11.65) 1. Uncontrolled, a Type 2 diabetes with A1c of 15.8% 01/10/2022 [facility] [place] 2. Blood glucose levels above target. Recommend [...] to 1.8mg dose. Recommend f/u apt with assistant health educator for application of dexcom g6- he is to bring his phone to see if compatible for madeline for dexcom g6- if not compatible will recommend he wear professional dexcom blinded x10 days. He was given log book instructed to log meals, glucose, insulin dosing and bring to f/u apt for review with assistant health educator. Also recommend he see RD to assist with carb counting. He is interested in insulin pump. He was also given phone number/website to [facility], encouraged to call for apt. Will send [employer] [facility] talking meter- meter blood sampling for strip [...] or diabetes medication issues. 6. Prescriptions: Uses [employer]'s [place]. 7. F/u with assistant health educator 2 weeks application of dexcom- see above. Referral to RD for instruction on carb counting- pt interested in insulin pump. Jan, Dietary counseling and surveillance (ICD-10 - Z71.3) see above Jan, Hyperlipidemia (ICD-10 - E78.5) on statin Jan, HTN (hypertension) (ICD-10 - I10) on arb Jan, custodial current use of insulin (ICD-10 - Z79.4) Jan, BMI 36.0-36.9,adult (ICD-10 - Z68.36) Jan, Hypoglycemia associated with type 2 diabetes mellitus (ICD-10 - E11.649) Pt would greatly benefit from half-way personal use of CGM device such as a dexRECCY g6 with ability for high/low alarm feature. Pt. currently using insulin injections >3 times/day with insulin to carb ratio/corrective factor and requires frequent self adjustment of insulin based on carbohydrate intake, physical activity blood glucose monitoring. A CGM would improve ease of access to glucose results and reduce risk of hypoglcyemia/hyperg lycemia. [facility] Other 04-01-2022 Hospital Discharge instructionsAmbulatory Orders* Initiate [...] Mepilex border foam. DISCHARGE INSTRUCTIONS FOR CARDIAC CLINIC MGR PHONE NUMBER OF YOUR PHYSICIAN: [phone] PROCEDURE: Heart Cath The following instructions have [...] cold, numb, blue or white, call the sap abap developer immediately. 4. ACTIVITY: You are advised to [...] bottle, follow the instructions on the bottle. [facility] is not responsible for incorrect prescription information provided by the patient during their visit. Do not stop your medications without consulting your health care provider. Please take the list with you to your next doctor's appointment.[facility] Work Phone: 1(494) 346-904003-31-2022 Progress note Author Rodriguez Wallace [facility] January 11, 2022 4:57pm Note Date/Time January 11, 2022 4:4 8pm [facility] EN[facility] [address] [place] [address] Hospitalist Progress Note Signed Patient: Chandler Minor MR#: [id number] : 1970 Acct:[id number] Age/Sex: 51 / M Adm Date: 2 Loc: Room: [address] [place] [address] Type : ADM INOo Attending Dr: Rodriguez Wallace MD Copies to: ~ Date of [...] if patient remains medically stable. Documented By: Rodriguez Wallace MD 2 1153 Signed By: <Electronically signed by Rodriguez Wallace MD> 01/11/22 1655 [facility] Work Phone: 1(362) 318-539703-31-2022 Consult note Author Leann Sarmiento [facility] January 11, 2022 2:30pm Note Date/Time January 11, 2022 2:3 0pm [facility] EN[facility] [address] [place] [address] Cardiology Consult Note Signed Patient: Chandler Minor MR#: [id number] : 1970 Acct:[id number] Age/Sex: 51 / M Adm Date: 2 Loc: Room: [address] [place] [address] Type : ADM IN Attending Dr: Rodriguez Wallace MD Copies to: DO Rodriguez Zuniga MD W Scott Sheldon, DO~ Cardiology HPI History of Present Illness Consult [...] or illicit drug use. Denies personal h/o LA, HF, bleeding disorder. 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) Family History Other Diabetes mellitus, type 2 [...] Lymph # (Auto) 1.2 1.3 (1.00-4.8) x10E3/uL Mills # (Auto) 0.5 0.6 (0.0-0.8) x10E3/uL Eos [...] ml @ 999 mls/hr IV .Q1H1M ONE Rx#:[id number] Oral 100 / 100 50 / 50 [...] signed by Leann Sarmiento DO> 01/11/22 1430 [facility] Work Phone: 1(874) 893-249703-31-2022 [facility] History and physical note Author Rodriguez Wallace [facility] January 11, 2022 11:49am Note Date/Time January 11, 2022 11: 49am [facility] EN[facility] [address] [place] [address] Hospitalist H&P Signed Patient: Chandler Minor MR#: [id number] : 1970 Acct:[id number] Age/Sex: 51 / M Adm Date: 2 Loc: Room: [address] [place] [address] Type : ADM IN Attending Dr: Rodriguez Wallace MD Copies to: DO Rodriguez Zuniga MD~ HPI DATE OF EXAMINATION: 01/10/22 [...] abuse Surgical History S/P percutaneous transluminal angioplasty (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 Documented By: Rodriguez Wallace MD 2 1829 Signed By: <Electronically signed by Rodriguez Wallace MD> 01/11/22 1149 [facility] Work Phone: 1(554) 362-832603-22-2022 Evaluation note* Encounter Date Diagnosis Assessment Notes [...] site. Needs emergent attention should redness/ulcer develop. [facility] Other 11-16-2021 Evaluation note* Encounter Date Diagnosis [...] Patient care instructions given in writting by [facility] document [facility] Other 11-01-2021 History general Narrative - Reported* [...] Hospitalization History Hypertensive emergency, chest pain 01/10/2022 [facility] Other 11-01-2021 History general Narrative - Reported* [...] chest pain 01/10/2022 Hospitalization History CHF, CELLULTIS, 3 [facility] Other 10-07-2021 Evaluation note* Encounter Date Diagnosis [...] Jul, HTN (hypertension) (ICD-10 - I10) Jul, terminal operations supervisor current us e of insulin (ICD-10 - Z79.4) [facility] Other 09-27-2021 Evaluation note* Encounter Date Diagnosis [...] we can consider him for a prosthetic. [facility] Other Evaluation noteNo assessment information available [facility] Work Phone: Evaluation note* Diagnosis Onset Date Resolution Status Chest pain acute Hx of right BKA acute Hypertensive emergency acute Diabetes mellitus chronic Tobacco abuse chronic [facility] Work Phone: Evaluation note* Diagnosis Proliferative diabetic retinopathy of both eyes associated with type 2 diabetes mellitus, unspecified proliferative retinopathy type (HCC)- Primary [facility] [place] [facility] Other Evaluation note* Diagnosis Disability examination- Primary Issue of medical certificate for disability examination 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, unspecified whether terminal operations supervisor insulin use (HCC) Type 2 diabetes mellitus with proliferative diabetic retinopathy of left eye without macular edema, unspecified whether terminal operations supervisor insulin use (HCC) Myopia, bilateral Myopia Regular astigmatism, bilateral Presbyopia [facility] Diagnosis Proliferative diabetic retinopathy of [...] Resolution Status FRANK (acute kidney injury) ac creek Dehydration acute CKD (chronic kidney disease) stage 3, GFR 30-59 ml/min chronic Diabetes mellitus chronic Hypertension [facility] Work Phone: Evaluation note* Diagnosis Proliferative [...] d Hypoglycemia resolved Hypothermia resolved Leukocytosis resolved [facility] Work Phone: Evaluation note* Diagnosis Proliferative diabetic retinopathy of both eyes associated with type 2 diabetes mellitus, unspecified proliferative retinopathy type (HCC)- Primary [facility] Diagnosis Chronic idiopathic constipation- Primary Unspecified constipation Nausea and vomiting, unspecified vomiting type Generalized abdominal pain Abdominal pain, generalized Stage 3 chronic kidney disease, unspecified whether stage 3a or 3b CKD ([facility]) Uncontrolled type 2 diabetes mellitus with hyperglycemia ([facility]) Nausea and vomiting, unspecified vomiting type Generalized abdominal pain Abdominal pain, generalized documented in this encounter [facility] Diagnosis Onset Date Resolution Status Light headed acute Diabetes mellitus [facility] Work Phone: Evaluation note* Diagnosis Onset Date Resolution Status Light headed acute Diabetes mellitus chronic Dietary counseling and surveillance acute Hyperlipidemia acute Diabetes mellitus chronic Hypertension chronic [facility] Work Phone: Evaluation note* Diagnosis Proliferative diabetic retinopathy of both eyes associated with type 2 diabetes mellitus (HCC) Vitreous hemorrhage of left eye (HCC) Vitreous hemorrhage Preop testing- Primary Preoperative examination, unspecified Type 2 diabetes mellitus without complication, unspecified whether terminal operations supervisor insulin use (HCC) Cardiomegaly Abnormal electrocardiogram (ECG) (EKG) Body mass index (BMI) 37.0-37.9, adult Proliferative diabetic retinopathy of both eyes associated with type 2 diabetes mellitus, unspecified proliferative retinopathy type (HCC) Vitreous hemorrhage of left eye (HCC) Vitreous hemorrhage [facility] - [facility]* Type Description Date Medical History diabetes mellitus Type 2 Medical History Hypertension Medical History sarcoidosis Medical History migraine headaches Medical History CVA Surgical History biopsy Surgical History Below knee amputation Hospitalization History see above [facility] Other Hospital Discharge [facility] Work Phone: InstructionsNot on filedocumented in this encounter [facility] filedocumented in this encounter [facility]ructionsNot on filedocumented in this encounter [facility] (narrative)* Consultation (Routine) - Pending Review Specialty Diagnoses / Procedures Referred By Jay t Referred To Contact Endocrinology Diagnoses Uncontrolled type 2 diabetes mellitus with hyperglycemia ([facility]) Yue Amador APRN-CNP [address] [place] [address] Leoncio Sales MD [address] [place] [address] Referral ID Status Reason Start Date Expiration Date Visits Requested Visits Authorized [id number] Pending Review Specialty Services Required 12/12/2023 12/11/2024 1 1 * Consultation (Routine) - Pending Review Specialty Diagnoses / Procedures Referred By Contac t Referred To Contact Nephrology Diagnoses Stage 3 chronic kidney disease, unspecified whether stage 3a or 3b CKD ([facility]) Yue Amador APRN-CNP [address] [place] [address] Eric Guardado MD [address] [place] [address] Referral ID Status Reason Start Date Expiration Date Visits Requested Visits Authorized [id number] Pending Review Specialty Services Required 12/12/2023 12/11/2024 1 1 [employer] Summary Purpose Family History No Family History [...] p Communication Suzan Mily Parent Supplemental (Other) Decis ion Maker Tiffanie Minor Child Secondary Decision Maker Leeanna Mily Spouse Primary Decision Maker Advance Directive Response Recorded Date/ Time Advance Directives No May 23, 2018 3:22pm Advance Directive Response Recorded Date/ Time Advance Directives No August 02, 2023 4:29am Advance Directive Response Recorded Date/ Time Advance Directives No August 02, 2023 3:36pm Advance Directive Response Recorded Date/ Time Advance Directives No May 23, 2018 2:22pm Latest Code Status on File Code Status Date Activated Date Inactivated Comments Full Code 05/28/2023 5:17 PM 06/06/2023 5:07 PM Code Status History Code Status Date Activated Date Inactivated Comments Full Code 05/25/2023 9:42 PM 05/28/2023 4:00 PM Full Code 01/18/2023 11:20 PM 01/21/2023 5:18 PM Full Code 01/07/2023 8:11 PM 01/12/2023 8:05 PM Full Code 07/21/2021 9:28 PM 07/28/2021 2:39 PM Latest Code Status on File Code Status Date Activated Date Inactivated Comments Full Code 05/28/2023 5:17 PM 06/06/2023 5:07 PM Code Status History Code Status Date Activated Date Inactivated Comments Full Code 05/25/2023 9:42 PM 05/28/2023 4:00 PM Full Code 01/18/2023 11:20 PM 01/21/2023 5:18 PM Full Code 01/07/2023 8:11 PM 01/12/2023 8:05 PM Full Code 07/21/2021 9:28 PM 07/28/2021 2:39 PM Latest Code Status on File Code Status Date Activated Date Inactivated Comments Full Code 01/07/2024 4:19 PM 01/08/2024 5:50 PM Code Status History Code Status Date Activated Date Inactivated Comments Full Code 05/28/2023 5:17 PM 06/06/2023 5:07 PM Full Code 05/25/2023 9:42 PM 05/28/2023 4:00 PM Full Code 01/18/2023 11:20 PM 01/21/2023 5:18 PM Full Code 01/07/2023 8:11 PM 01/12/2023 8:05 PM Reason for Referral Status Reason Specialty Diagnoses / Procedures Referre d By Contact Referred To Contact Closed Radiology Diagnoses 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 (HCC) Procedures CTA ABDOMINAL AORTA [place] [address] [place] [address] Specialty Diagnoses / Procedures Referred By Contac t Referred To Contact Infusion Services Diagnoses Proliferative diabetic retinopathy of both eyes associated with type 2 diabetes mellitus, unspecified proliferative retinopathy type (HCC) Demetri Subramanian MD [address] [place] [address] [facility] [employer] [address] [place] [address] Referral ID Status Reason Start Date Expiration Date V isits Requested Visits Authorized [id number] Pending Review 03/21/2022 03/21/2023 14 14 Question [...] intradermal (PPD) (CVX=96) Assessments Diagnosis 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 (HCC) Atherosclerosis of stockbridge arteries of the extremities with gangrene Diagnosis [...] to arriving today. documented in this encounter* Amari Parkinson RD, LD - 12/29/2020 1:24 PM [...] loss Fluid Accumulation: No significant fluid accumulation Wooden Fence Erector Strength: Not Performed Estimated Daily Nutrient Needs: Energy (kcal): 4907-6978 kcals @ 13-15 kcal/kg; Weight Used for Energy Requirements: Admission(133 kg) Protein (g): 84-97 g protein @ 1.3-1.5 g/kg IBW; Weight Used for Protein Requirements: [place](65 kg) Fluid (ml/day): ~1950 @ 30 ml/kg [...] 214 lb (97.1 kg)((2019); 236# ( 11/03)) [place] Body Weight: 142 lbs; BMI: 47 BMI [...] AM EDT Wound Ostomy Continence Nursing This [facility] Nurse asked by Dr. Galarza and nursing [...] wound evaluation. No other needs from this [facility] Nurse at this time. documented in this encounter Hospital Course * Kaiser Galarza MD - 12/29/2020 11:11 AM EDT Hospital Medicine Discharge Summary Chandler Minor : 1970 Admit date: 12/28/2020 Discharge date: 12/29/2020 Admitting Physician: Kaiser Galarza MD Primary Care Physician: Donita Tenorio, , DO Discharge Diagnoses: Right superficial [...] by the following consultants while admitted to [facility]: Consults: IP CONSULT TO VASCULAR SURGERY Significant Diagnostic Studies: Refer to chart Please refer to chart if no studies are shown here No results found. Discharge Medications: Chandler Minor Home Medication Instructions FLORENTIN:[id number] Printed on:12/29/20 1111 Medication Information amLODIPine (NORVASC) [...] daily Disposition: If discharged to Home, Any [facility] needs that were indicated and/or required [...] Instructions * Discharge Instr - Activity* Hoda Panchal RN - 12/29/2020 10:40 AM EDT No baths for 2 weeks; ok to shower No heavy lifting of anything over 5 lbs for 2 weeks Continue with NWB to right foot * Discharge Instr - Diet* Hoda Panchal RN - 12/29/2020 10:40 AM EDT Good [...] most local grocery stores, pharmacies, and chain [employer]stores. If you have any questions about your diet or nutrition, call the hospital and ask for the dietitian. Continue to follow a low fat, low cholesterol, diabetic diet * Discharge Instr - JACOBO* Hoda Panchal RN - 12/29/2020 11:11 AM EDT Continuity of Care Form Patient Name: Chandler Minor : 1970 Admit date: 12/28/2020 Discharge date: 12/29/20 Code Status Order: Full Code Advance Directives: Admitting Physician: Kaiser Galarza MD PCP: Donita Tenorio Sr, DO Discharging Nurse: ITZ Discharging Hospital Unit/Room#: W194/W194-01 Discharging Unit Phone Number: [phone] Emergency Contact: Extended Emergency Contact Information Primary Emergency Contact: Tiffanie Minor Relation: Child Preferred language: Upper Sorbian Gas Engine Operator Generators needed? No Secondary Emergency Contact: Suzan Minor Relation: Parent Preferred language: Upper Sorbian Gas Engine Operator Generators needed? No Past Surgical History: Past Surgical [...] Assisted Dressing Assisted Toileting Assisted Feeding Independent Helix Coil Winder Assisted Med Delivery whole Wound Care Documentation [...] select all that are sent with patient): {[facility] DME Belongings:[id number]:::[id number]} RN SIGNATURE: CASE MANAGEMENT/SOCIAL WORK SECTION Inpatient Status Date: Readmission Risk Assessment Score: Readmission Risk Risk of Unplanned Readmission: 15 Discharging to Facility/ Agency Name: [facility] Address:[address] [place] [id number] Fax: Dialysis Facility (if applicable) Name: Address: Dialysis Schedule: Phone: Fax: Building Maintenance Superintendent/Change Analyst signature: PHYSICIAN SECTION Prognosis: Good Condition at [...] the diagnosis listed and that he requires [facility]sp Facilityfor less 30 days. Update Admission H&P: [...] And Leg Not Fitting Properly Chief Complaint NO METER Reason for Visit Light headed Diabetes mellitus Chief Complaint NO METER low bp headache Reason for Visit Light headed Diabetes mellitus Chief Complaint NO METER low bp headache Reason for Visit Light headed Diabetes mellitus Dietary counseling and surveillance Hyperlipidemia Diabetes mellitus Hypertension Chief Complaint * Patient is a 51-year-old diabetic gentleman who returns following recent non- ST elevation LA, cardiac catheterization revealed severe LAD disease throughout [...] on Sat09/03/22 at 1430, Until Sat09/04/22 at 022, Administer for dilation PROTECT FROM LIGHT Given 09/03/2022 2:30 PM EST 1 Drop tropicamide 1 % 1 Drop (MYDRIACYL) 1 Drop, BOTH EYES, DIRECTED, Starting on Sat09/03/22 at 1430, Until Sat09/04/22 at 022, Administer for dilation Given 09/03/2022 2:30 PM [...] content) DATE CREATED AUTHOR 01/16/2019 Lalo Mariscal [facility] DATE CREATED AUTHOR AUTHOR'S ORGANIZ ATION [facility] [place] DATE CREATED AUTHOR AUTHOR'S ORGANIZ ATION 03/08/2022 [facility] DATE CREATED AUTHOR AUTHOR'S ORGANIZ ATION 09/04/2022 [facility] DATE CREATED AUTHOR AUTHOR'S ORGANIZ ATION 03/23/2023 [facility] DATE CREATED AUTHOR AUTHOR'S ORGANIZ ATION 09/19/2023 [facility] DATE CREATED AUTHOR AUTHOR'S ORGANIZ ATION 12/15/2023 [facility] DATE CREATED AUTHOR AUTHOR'S ORGANIZ ATION 01/24/2024 [facility] DATE CREATED AUTHOR AUTHOR'S ORGANIZ ATION 02/10/2024 [facility] DATE CREATED AUTHOR AUTHOR'S ORGANIZ ATION 02/14/[address] [facility] DATE CREATED AUTHOR AUTHOR'S ORGANIZ ATION 02/20/2024 [facility] DATE CREATED AUTHOR AUTHOR'S ORGANIZ ATION 02/22/2024 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) Procedures CTA ABDOMINAL AORTA [place] BIL[place] [address] [place] [address] Status Reason Specialty Diagnoses / Procedures Referre d By Contact Referred To Contact [facility] Reason Comments Other sent from cardiac, n eeds to be admitted, vascular issue rle Status Reason Specialty Diagnoses / Procedures Referred By Contact Referred To Contact Diagn[place] [address] [place] [address] [facility] Reason Onset Date Comments Other sympt/complt of eye 02/12/2022 Reason Comments Diabetic Eye Exam Reason Comments Disability Evaluation Specialty Diagnoses / Procedures Referred By Conttheron t Referred To Contact Optometry / OPHTHALMOLOGY Diagnoses [place] Disability Exam (Case#[id number]) Procedures NEW ADULT Self Vj Haddad II, OD [address] [place] [address] Referral ID Status Reason Start Date Expiration Date Visits Re quested Visits Authorized [id number] Closed 09/03/2022 09/03/2022 1 1 Reason Comments Follow Up PDR OU and DME OU Reason Comments 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 Pt reports things are not going good. Pt states he can go 5-6 days without bowel movement, longest was 9 days. Pt reports then when he does go he has incontinence. Pt states he has some abdominal bloating. Pt reports vomiting that is brown and smelly gas. Reason Onset Date Comments Appointment 12/13/2023 Ordered Prescriptions (unrec ognized section and content) Prescription Sig Dispensed Refills Start Date End Da te aspirin 81 MG chewable tablet Take 1 tablet by mouth daily 30 tablet 3 12/30/2020 Care Teams (unrecognized sec tion and content) Team Status: Active Member Role Status Dates Donita Tenorio DO Primary Care Provider Active Mario Phillips DO Emergency Provider Active Rodriguez Wallace MD Admit Provider, Attending Edinson terrazas Active Team Status: Active Member Role Status Dates Donita Tenorio DO Primary Care Provider Active Team Status: Inactive Member Role Status Juan Tenorio DO Primary Care Provider Active Mario Phillips DO Emergency Provider Active Rodriguez Wallace MD Admit Provider, Attending Edinson terrazas Active Shavonne Mittal RN Other Provider Active Leann Sarmiento DO Other Provider Active Madeline Valdez MD Other Provider Active Jaylen Brooks MD Other Provider Active Eduin Johnson MD Other Provider Active Donita Howard MD Other Provider Active Aicha Rodriguez APRN Other Provider Active Leticia Da Silva MD Other Provider Active Carlos Alberto Strong MD Other Provider Active Malik Hernandez MD Other Provider Active Team Status: Active Member Role Status Dates Donita Tenorio DO Primary Care Provider Active Mika Das APRN Attending Provider Active Swahili Teacher Relationship Specialty Start Date End Date Rober Lopes MD [address] [place] [address] Physician Ophthalmology 07/19/20 Raul Chamberlain MD [address] [place] [address] [place] [address] Resident Ophthalmology 07/19/20 Agustin Hampton MD [address] [place] [address] Resident Ophthalmology 11/18/21 Swahili Teacher Relationship Specialty Start Date End Date Rober Lopes MD [address] [place] [address] Physician Ophthalmology 07/19/20 Raul Chamberlain MD [address] [place] [address] [place] [address] Resident Ophthalmology 07/19/20 Agustin Hampton MD [address] [place] [address] Resident Ophthalmology 11/18/21 Swahili Teacher Relationship Specialty Start Date End Date Rober Lopes MD [address] [place] [address]99 Physician Ophthalmology 07/19/20 Raul Chamberlain MD [address] [place] [address] [place] [address] Resident Ophthalmology 07/19/20 Agustin Hampton MD [address] [place] [address] Resident Ophthalmology 11/18/21 Swahili Teacher Relationship Specialty Start Date End Date Rober Lopes MD [address] [place] [address] Physician Ophthalmology 07/19/20 Raul Chamberlain MD [address] [place] [address] [place] [address] Resident Ophthalmology 07/19/20 Agustin Hampton MD [address] [place] [address] Resident Ophthalmology 11/18/21 Swahili Teacher Relationship Specialty Start Date End Date Rober Lopes MD [address] [place] [address]67 Physician Ophthalmology 07/19/20 Raul Chamberlain MD [address] [place] [address] [place] [address] Resident Ophthalmology 07/19/20 Agustin Hampton MD [address] [place] [address] Resident Ophthalmology 11/18/21 Team Status: Inactive Member Role Status Dates Donita Tenorio , DO Primary Care Provider Active Sinan Holly , DO Emergency Provider Active Suzan Bennett MD RES Active Swahili Teacher Relationship Specialty Start Date End Date Rober Lopes MD [address] [place] [address]34 Physician Ophthalmology 07/19/20 Raul Chamberlain MD [address] [place] [address] [place] [address] Resident Ophthalmology 07/19/20 Agustin Hampton MD [address] [place] [address] Resident Ophthalmology 11/18/21 Demetri Subramanian MD [address] [place] [address]27 Physician Ophthalmology 04/14/22 Swahili Teacher Relationship Specialty Start Date End Date Rboer Lopes MD [address] [place] [address] 60536 Physician Ophthalmology 07/19/20 Raul Chamberlain MD [address] [place] [address] [place] [address] Resident Ophthalmology 07/19/20 Agustin Hampton MD [address] [place] [address] Resident Ophthalmology 11/18/21 Demetri Subramanian MD [address] [place] [address] Physician Ophthalmology 04/14/22 Swahili Teacher Relationship Specialty Start Date End Date Rober Lopes MD [address] [place] [address] 89167 Physician Ophthalmology 07/19/20 Raul Chamberlain MD [address] [place] [address] [place] [address] Resident Ophthalmology 07/19/20 Agustin Hampton MD [address] [place] [address] Resident Ophthalmology 11/18/21 Demetri Subramanian MD [address] [place], [place] [phone] Physician Ophthalmology 04/14/22 Swahili Teacher Relationship Specialty Start Date End Date Rober Lopes MD [address] [place] [address] Physician Ophthalmology 07/19/20 Raul Chamberlain MD [address] [place] [address] [place] [address] Resident Ophthalmology 07/19/20 Agustin Hampton MD [address] [place] [address] Resident Ophthalmology 11/18/21 Demetri Subramanian MD [address] [place] [address] Physician Ophthalmology 04/14/22 Team Status: Inactive Member Role Status Dates Donita Tenorio , DO Primary Care Provider Active Kvng Dos Santos , DO Attending Provider Active Albert Woods , DO Admit Provider Active Nkechi Kc MD Other Provider Active Swahili Teacher Relationship Specialty Start Date End Date Rober Lopes MD [address] [place] [address] Physician Ophthalmology 07/19/20 Raul Chamberlain MD [address] [place] [address] [place] [address] Resident Ophthalmology 07/19/20 Agustin Hampton MD [address] [place] [address] Resident Ophthalmology 11/18/21 Demetri Subramanian MD [address] [place] [address] Physician Ophthalmology 04/14/22 Team Status: Active Member [...] Member Role Status Dates Christopher Santiago , Emergency Provider Active Doctor None , DO [...] Active Harjeet Ruelas MD Attending Provider Active Swahili Teacher Relationship Specialty Start Date End Date Rober Lopes MD [address] [place] [address] Physician Ophthalmology 07/19/20 Raul Chamberlain MD [address] [place] [address] [place] [address] Resident Ophthalmology 07/19/20 Agustin Hampton MD [address] [place] [address] Resident Ophthalmology 11/18/21 Demetri Subramanian MD [address] [place], [place] [id number] Physician Ophthalmology 04/14/22 Swahili Teacher Relationship Specialty Start Date End Date Rober Lopes MD [address] [place] [address] Physician Ophthalmology 07/19/20 Raul Chamberlain MD [address] [place] [address] [place] [address] Resident Ophthalmology 07/19/20 Agustin Hampton MD [address] [place] [address] Resident Ophthalmology 11/18/21 Demetri Subramanian MD [address] [facility] [place] [address] Physician Ophthalmology 04/14/22 Team Status: Inactive Member Role Status Dates Agus Pedroza MD Attending Provider Active Star t: September 17, 2023 End: September 17, 2023 Swahili Teacher Relationship Specialty Start Date End Date Donita Tenorio DO [address] [place] [address] PCP - General 01/15/23 Swahili Teacher Relationship Specialty Start Date End Date Donita Tenorio DO [address] [place] [address] PCP - General 01/15/23 Swahili Teacher Relationship Specialty Start Date End Date Donita Tenorio DO [address] [place] [address] 77757 PCP - General 01/15/23 Swahili Teacher Relationship Specialty Start Date End Date Donita Tenorio DO [address] [place] [address]101 PCP - General 01/15/23 Swahili Teacher Relationship Specialty Start Date End Date Donita Tenorio DO [address] [place] [address] 13328 PCP - General 01/07/24 Team Status: Inactive Member Role Status Dates Mika Das APRN Attending Provider Active Start: January 13, 2024 End: January 13, 2024 Donita Tenorio DO Primary Care Provider Active Start: January 13, 2024 End: January 13, 2024 Team Status: Inactive Member Role Status Dates Donita Tenorio DO Primary Care Provider Active Start: January 13, 2024 End: January 13, 2024 Kan Rodriguez MD Emergency Provider Active Star t: January 13, 2024 End: January 13, 2024 Team Status: Inactive Member Role Status Dates Donita Tenorio DO Primary Care Provider Active Start: January 14, 2024 End: January 14, 2024 Mika Das APRN Attending Provider Active Start: January 14, 2024 End: January 14, 2024 Swahili Teacher Relationship Specialty Start Date End Date Rober Lopes MD [address] [place] [address] Physician Ophthalmology 07/19/20 Raul Chamberlain MD [address] [place], [place] [phone] Resident Ophthalmology 07/19/20 Agustin Hampton MD [address] [place] [address] [phone] Resident Ophthalmology 11/18/21 Demetri Subramanian MD [address] [place], [place] [address] Physician Ophthalmology 04/14/22 Goals (unrecognized section and [...] InformationGoals may be documented in an alternate sectionGoals may be documented in an alternate sectionGoals may be documented in an alternate sectionGoals may be documented in an alternate section Source Comments (unrecognize d section and content) In the event this informatio n is protected by the Federal Confidentiality of Alcohol and Drug Abuse Patient Records regulations: The Federal rules restrict any use of the information to criminally investigate or prosecute any alcohol or drug abuse patient.[facility] FOR RECORDS PERTAINING TO PATIENTS WHO [...] BE BASED ON THE PRIMARY CLINICAL RECORDS. [facility]. provides no warranty or guarantee of the accuracy or completeness of information in this document.
== END 2024-03-27 07:33 | disposition home or self-care (01) ==
LOC: VC 07:47
PROVIDERS: PCP Family Medicine; Visit Provider Physician Assistant
DX: R09.89 Other specified symptoms and signs involving the circulatory and respiratory systems (principal)
CPT/HCPCS: 93923